=== PATIENT | female | born 1960 | race Caucasian/White ===

== ENCOUNTER 2024-02-17 08:38 | Emergency (ER) | payer MEDICARE, MEDICAID, SELFPAY ==
[2024-02-17] VITALS (18 sets, daily range): BP systolic 101–129; BP diastolic 49–90; PULSE 77–94; RESP 15–28; TEMP 37.2–39.1; O2SAT 97
--- NOTE | 2024-02-17 08:30 | RT.EKG_ITS ---
APPROVED REPORT Exam: Resting ECG Reason for Exam: Fever Patient Location: E HR:90 bpm ECG Measurements Heart Rate [address] 134 P 84 QRSd 88 QRS 56 QT 449 T 57 QTc 549 Conclusion Sinus rhythm...normal P axis, V-rate 60- 99 Right atrial enlargement...P>0.25mV 2 lds or<-0.24mV aVR/aVL Borderline ST depression, lateral leads...ST <-0.07mV, I aVL V5 V6 Prolonged QT interval...QTc >500mS
--- NOTE | 2024-02-17 09:31 | W.ED.GENAD ---
Discharge Plan Disposition Patient Disposition: Home Condition: Stable Discharge Details Clinical Impression: Infiltrate of upper lobe of right lung present on imaging study, Calculus, renal, Lesion of right [place] kidney, Splenic lesion, Pneumonia, Hypokalemia Primary Care Provider: Madeline,Local ED Provider: Luiz Michel Home Meds and New Rx's Prescriptions: New doxycycline hyclate 100 mg capsule 100 mg PO BID Qty: 10 0RF amoxicillin-pot clavulanate 875-125 mg tablet 1 tab PO BID Qty: 10 0RF Continued zolpidem 5 mg tablet 5 mg PO DAILY hydrocodone-acetaminophen 7.5-325 mg tablet 1 tab PO DAILY Patient Comments: TAKE ONE TABLET BY MOUTH EVERY 6 HOURS FOR CHRONIC PAIN, MAXIMUM DAILY DOSE = 4 TABLETS methylphenidate HCl 10 mg tablet 10 mg PO DAILY Patient Comments: TAKE ONE TABLET BY MOUTH EVERY DAY FOR NARCOLEPSY , MAXIMUM DAILY DOSE = 10MG Afternoon dose, per patient methylphenidate HCl 20 mg tablet 40 mg PO DAILY Patient Comments: TAKE TWO TABLETS BY MOUTH EVERY DAY FOR 28 DAYS FOR NARCOLEPSY MAXIMUM DAILY DOSE = 2 TABLETS Morning dose, per patient doxycycline hyclate 100 mg tablet 100 mg PO DAILY Patient Comments: TAKE ONE TABLET BY MOUTH DAILY AT 9AM for rosacea levalbuterol tartrate 45 mcg/actuation HFA aerosol inhaler 2 inh INHALATION Q4H PRN Patient Comments: INHALE TWO PUFFS BY MOUTH INTO LUNGS EVERY 4 HOURS NEEDED FOR WHEEZING/SHORTNESS OF BREATH DIRECTED methocarbamol 500 mg tablet 500 mg PO HS Patient Comments: TAKE TWO TABLETS BY MOUTH DAILY AT 9PM AT BEDTIME montelukast 10 mg tablet 10 mg PO DAILY Patient Comments: TAKE ONE TABLET BY MOUTH DAILY AT 9AM for allergies ondansetron HCl 4 mg tablet 4 mg PO .q8prn Patient Comments: TAKE ONE TABLET BY MOUTH EVERY 8 HOURS NEEDED FOR NAUSEA pregabalin 300 mg capsule 300 mg PO BID Patient Comments: TAKE ONE CAPSULE BY MOUTH TWICE DAILY DAILY MAX 2 CAPSULES promethazine 25 mg tablet 25 mg PO .q6n prn Patient Comments: TAKE ONE TABLET BY MOUTH EVERY 6 HOURS NEEDED FOR NAUSEA ropinirole 2 mg tablet 2 mg PO HS Patient Comments: TAKE ONE TABLET BY MOUTH DAILY AT 9PM AT BEDTIME lidocaine HCl [Lidocaine Viscous] 2 % solution 1 applic mucous membrane .q6 prn Patient Comments: MIX 5 MLS LIDOCAINE WITH 5 MLS MYLANTA OR MAALOX, SWISH AND SWALLOW FOR SWALLOWING PAIN EVERY 6 HOURS NEEDED sumatriptan succinate 100 mg tablet 100 mg PO DAILY PRN Patient Comments: TAKE ONE TABLET BY MOUTH DAILY NEEDED FOR MIGRAINE. TAKE AT ONSET OF MIGRAINE. MAY REPEAT IN 2 HOURS IF NEEDED. DAILY MAX 2 TABLETS duloxetine 60 mg capsule,delayed release(DR/EC) 120 mg PO DAILY Patient Comments: TAKE TWO CAPSULES BY MOUTH DAILY AT 9AM For depression, anxiety (DME) OneTouch Ultra Test Strip MISCELLANEOUS Patient Comments: USE TO TEST TWO TIMES A DAY omeprazole 40 mg capsule,delayed release(DR/EC) 40 mg PO DAILY Patient Comments: TAKE ONE CAPSULE BY MOUTH EVERY DAY benzonatate 100 mg capsule 100 mg PO TID Patient Comments: TAKE 1 CAPSULE BY MOUTH THREE TIMES A DAY NEEDED FOR COUGH Spiriva Respimat 2.5 mcg/actuation mist 2 inh INHALATION DAILY Patient Comments: INHALE 2 PUFFS DIRECTED DAILY Held doxycycline hyclate 100 mg capsule 100 mg PO DAILY Hold Instructions: Resume on 02/23/24. Patient Comments: TAKE 1 CAPSULE BY MOUTH EVERY DAY FOR ROSACEA Discharge Instructions Instructions: Hypokalemia (ED), Pneumonia (ED) Additional Instructions: Please take full course of antibiotics as prescribed. Please follow-up with your primary care physician. Be sure to discuss all results with your primary care physician. There are findings on CT scan that require outpatient follow-up. Be sure to discuss these with your doctor. Timely outpatient follow-up is essential. Return to the ER immediately for any worsening or new concerning symptoms. Discharge Data Discharge Date/Time-TO BE ENTERED AT DEPARTURE: 02/17/24 14:11 HPI General Mode of arrival: ambulatory. Date/Time Provider Initiated Documentation: 02/17/24 08:43. Limitations to Documentation: no limitations. Information obtained by: patient and family. HPI Narrative: 63-year-old female smoker presents with chief complaint of illness. Patient notes cough, nausea vomiting and shortness of breath over the past 3 days. She is concerned she has pneumonia. She notes associated fever of 101. Cough is nonproductive. She has associated bilateral ear pain, headache, body aches. No known sick contacts. No tick bites. Related Data Home Medications Medication Instructions Recorded Confirmed amoxicillin 875 mg-potassium 1 tab PO BID #10 tabs 02/17/24 clavulanate 125 mg tablet benzonatate 100 mg capsule 100 mg PO TID 02/17/24 02/17/24 blood sugar diagnostic (OneTouch 02/17/24 02/17/24 Ultra Test strips) doxycycline hyclate 100 mg capsule 100 mg PO BID #10 caps 02/17/24 doxycycline hyclate 100 mg capsule 100 mg PO DAILY 02/17/24 02/17/24 doxycycline hyclate 100 mg tablet 100 mg PO DAILY 02/17/24 02/17/24 duloxetine 60 mg capsule,delayed 120 mg PO DAILY 02/17/24 02/17/24 release hydrocodone 7.5 mg-acetaminophen 1 tab PO DAILY 02/17/24 02/17/24 325 mg tablet levalbuterol tartrate 45 2 inh inhalation Q4H PRN 02/17/24 02/17/24 mcg/actuation aerosol inhaler lidocaine HCl 2 % mucosal solution 1 applic mucous membrane .q6 prn 02/17/24 02/17/24 (Lidocaine Viscous) methocarbamol 500 mg tablet 500 mg PO HS 02/17/24 02/17/24 methylphenidate HCl 10 mg tablet 10 mg PO DAILY 02/17/24 02/17/24 methylphenidate HCl 20 mg tablet 40 mg PO DAILY 02/17/24 02/17/24 montelukast 10 mg tablet 10 mg PO DAILY 02/17/24 02/17/24 omeprazole 40 mg capsule,delayed 40 mg PO DAILY 02/17/24 02/17/24 release ondansetron HCl 4 mg tablet 4 mg PO .q8prn 02/17/24 02/17/24 pregabalin 300 mg capsule 300 mg PO BID 02/17/24 02/17/24 promethazine 25 mg tablet 25 mg PO .q6n prn 02/17/24 02/17/24 ropinirole 2 mg tablet 2 mg PO HS 02/17/24 02/17/24 sumatriptan succinate 100 mg tablet 100 mg PO DAILY PRN 02/17/24 02/17/24 tiotropium bromide 2.5 2 inh inhalation DAILY 02/17/24 02/17/24 mcg/actuation mist for inhalation (Spiriva Respimat) zolpidem 5 mg tablet 5 mg PO DAILY 02/17/24 02/17/24 Previous Rx's Medication Instructions Recorded amoxicillin 875 mg-potassium 1 tab PO BID #10 tabs 02/17/24 clavulanate 125 mg tablet doxycycline hyclate 100 mg capsule 100 mg PO BID #10 caps 02/17/24 Allergies Allergy/AdvReac Type Severity Reaction Status Date / Time ketorolac [From Toradol] Allergy Severe Anaphylaxis Verified 02/17/24 08:43 ibuprofen [From Motrin] Allergy Intermediate Itching Verified 02/17/24 08:43 General Stated Complaint: GenMedical DMITRI: 3 Review of Systems Constitutional Constitutional: Denies fever(s) Cardiovascular Cardiovascular: Reports dyspnea Respiratory Respiratory: Reports cough and Reports dyspnea Exam Const General: cooperative and no acute distress HENMT Ears: TM abnormal (fullness bilateral) Mouth: moist mucous membranes Eyes Conjunctivae: normal conjunctivae Sclera: normal sclerae EOM: EOM intact bilaterally Neck Neck: full ROM, trachea midline and supple Resp Auscultation: clear to auscultation bilaterally, no rales, no rhonchi and no wheezes Cardio Rate: regular rate and not tachycardic Rhythm: regular rhythm GI Palpation: soft, not firm, no guarding, no masses, not rigid and tender (mild diffuse) Skin General skin exam: no rashes or lesions noted Neuro General: patient alert, patient awake, patient oriented x3 and tone normal Extrem General: no edema Psych Appearance: grossly normal Mental Status: mental status grossly normal Course Vital Signs Vital signs: Vital Signs Temperature 39.1 C H 02/17/24 08:38 Pulse 90 02/17/24 08:38 Respiratory Rate 23 02/17/24 08:38 Blood Pressure 124/80 02/17/24 08:38 Pulse Oximetry 97 02/17/24 08:38 Temperature 39.1 C H 02/17/24 08:43 Temperature Source Tympanic 02/17/24 08:43 Pulse 84 02/17/24 09:01 Pulse 86 02/17/24 09:01 Respiratory Rate 26 H 02/17/24 09:01 Blood Pressure 112/51 L 02/17/24 09:01 Blood Pressure Mean 73 02/17/24 09:01 Blood Pressure Position Supine 02/17/24 08:43 Pulse Oximetry 97 02/17/24 08:43 Oxygen Delivery Method Room Air 02/17/24 08:43 Oxygen Flow Rate 0 02/17/24 08:43 Pain Level 10 02/17/24 08:43 Comment Pt states she has a GABRIEL and ear pain; no CP 02/17/24 08:43 Lab/Test Results Lab/Test Results: 02/17/24 08:45 Blood Blood Culture - Pending 02/17/24 08:45 Blood Blood Culture - Pending Medical Decision Making 958??63-year-old female smoker here with cough, nausea vomiting, myalgias, headache, bilateral ear pain, and fever over the past 3 days. Patient is hemodynamically stable. Patient saturating well in no respiratory distress. Patient is febrile. Patient given acetaminophen IV by EMS. Concern for pneumonia versus viral infection versus other. Will send COVID, flu and RSV testing. Plan obtain chest x-ray to assess for pneumonia. Screening EKG was reviewed and interpreted by me: Sinus rhythm 90 bpm, right atrial enlargement, subtle ST depression noted laterally V4 to V6. Prolonged QTc 549. -- Chest x-ray was interpreted by radiology: Concerning right upper lobe infiltrate. CT scan recommended to rule out malignancy. No obvious pleural effusions. 1335 --CT of the chest abdomen pelvis interpreted by radiology: There is infiltrate in the right upper lobe extending from the hilum out to the pleural surface corresponding to what is seen on chest x-ray earlier today. Suspicious for malignancy. Another smaller area of infiltrate is seen more anteriorly in the right upper lobe (series 4/image 17), and there is a right lower lobe nodule measuring 6-7 mm (series 4/image 27). No pleural effusion. The opposite-left lung is clear with the exception of some mild pleural based infiltrate adjacent to a bulla in the anterior segment of the left upper lobe (series 4/image 20). There are no pleural effusions on either side. 1. There is malignant appearing infiltrate in the right upper lobe extending from the hilum out to the pleural surface, this correspond to the finding on the chest x-ray earlier today. Apparently this has been documented at outside institution. Right lung findings as described above. No significant left lung findings. No pleural effusions. 2. In the superior pole the right kidney there is a 1.5 cm finding which is too dense to be a simple cyst. Recommend follow-up ultrasound of this finding in the most superior aspect of the right kidney 3. There is subcapsular lesion in the posterior aspect of the spleen measuring 2 x 1.3 cm appears statistically this is most probably a cyst or hemangioma. Less likely neoplastic. There are no lesions in the liver nor elsewhere in the abdomen and pelvis. 4. Other findings as above. Labs reviewed: No leukocytosis. Hypokalemia was noted with potassium 2.8. Patient received potassium 20 mill equivalents IV and 20 mill equivalents orally. COVID, flu and RSV negative. Patient reassessed and notes she is feeling better. Plan to treat for potential pneumonia with Augmentin and doxycycline. Patient will require close outpatient follow-up with pulmonology next week. All results were discussed with the patient. Usual customary discharge instructions were reviewed. Patient is new to the area and we did discuss need to follow-up with PCP. She is in the process of transferring records from her prior PCP in the [place] area to new PCP here. I recommended that if she is not able to follow-up with her new PCP in a timely fashion due to transfer of care delays, she should follow-up in [place] with her previous PCP. Patient verbalized understanding of this and the importance of timely follow-up. Lab Data Lab results reviewed: Yes I reviewed the patient's lab results. Labs: 02/17/24 09:34 Blood Blood Culture - Pending 02/17/24 09:34 Blood Blood Culture - Pending Laboratory Tests Range/Units 02/17/24 02/17/24 09:04 09:34 WBC (4.4-10.8) 10^3/uL 7.45 RBC (3.93-5.22) 10^6/uL 3.89 L Hgb (11.2-15.7) g/dL 12.5 Hct (36.0-46.0) % 36.1 MCV (80-95) fL 93 MCH (27.0-33.0) pg 32.1 MCHC (32.0-36.0) % 34.6 RDW (11.7-14.6) % 12.9 Plt Count (130-400) 10^3/uL 284 MPV (8.0-11.0) fL 9.2 Immature Gran % % 0.0 Neutrophils % % 74.0 Band Neutrophils % % 5 Lymphocytes % % 8.0 Atypical Lymphs % % 0.0 Monocytes % % 11.0 Eosinophils % % 0.0 Basophils % % 0.0 Metamyelocytes % 2 Nucleated RBC % (0.0-0.3) % 0.0 Absolute Neutrophils (1.2-6.7) 10^3/uL 5.89 Absolute Lymphocytes (1.2-3.4) 10^3/uL 0.60 L Absolute Monocytes (0.1-0.8) 10^3/uL 0.82 H Absolute Eosinophils (0.0-0.7) 10^3/uL 0.00 Absolute Basophils (0.0-0.2) 10^3/uL 0.00 RBC Morphology Normal VBG Lactate (0.6-1.4) mmol/L 0.9 Sodium (136-145) mmol/L 142 Potassium (3.5-5.1) mmol/L 2.8 L* Chloride (98-107) mmol/L 107 Carbon Dioxide (21.0-32.0) mmol/L 24.0 Anion Gap (3-11) mmol/L 11.0 BUN (7-18) mg/dL 8 Creatinine (0.55-1.02) mg/dL 0.7 Est GFR (CKD-EPI 2020) (mL/min/1.73m2) 95.92 Glucose (74-106) mg/dL 160 H Calcium (8.5-10.1) mg/dL 8.5 Magnesium (1.8-2.4) mg/dL 2.0 Total Bilirubin (0.2-1.0) mg/dL 0.4 AST (15-37) U/L 9 L ALT (14-59) U/L 15 Alkaline Phosphatase (46-116) U/L 78 Total Protein (6.4-8.2) g/dL 7.3 Albumin (3.4-5.0) g/dL 3.2 L Procalcitonin ng/mL < 0.1 COVID-19 Source Nasopharynx SARS-CoV-2 (PCR) (Negative) Negative Influenza Type A (PCR) (Negative) Negative Influenza Type B (PCR) (Negative) Negative RSV (PCR) (Negative) Negative Quality:SDOH Health Related Social Needs: No Data to Display PFSH All Active Problems (Updated 02/17/24 @ 13:48 by Luiz Michel MD) Hypokalemia (Acute) Pneumonia (Acute) Splenic lesion (Acute) Lesion of right [place] kidney (Acute) Calculus, renal (Chronic) Infiltrate of upper lobe of right lung present on imaging study (Acute) Social History Smoking risk assessment performed?: No
[2024-02-17 09:42] LABS: Lactate 0.9 mmol/L (0.6-1.4)
[2024-02-17 09:44] LABS: HCT 36.1 % (36.0-46.0); HGB 12.5 g/dL (11.2-15.7); MCH 32.1 pg (27.0-33.0); MCHC 34.6 % (32.0-36.0); MCV 93 fL (80-95); MPV 9.2 fL (8.0-11.0); Platelet Count 284 10^3/uL (130-400); RBC 3.89 10^6/uL (3.93-5.22); RDW 12.9 % (11.7-14.6); RDW-SD 43.8 fL; WBC 7.45 10^3/uL (4.4-10.8)
[2024-02-17 09:55] LABS: COVID-19 PCR Negative (Negative); Influenza A PCR Negative (Negative); Influenza B PCR Negative (Negative); RSV PCR Negative (Negative)
[2024-02-17 09:58] LABS: ALT 15 U/L (14-59); AST 9 U/L (15-37); Albumin 3.2 g/dL (3.4-5.0); Alkaline Phosphatase 78 U/L (46-116); BUN 8 mg/dL (7-18); Bilirubin, Total 0.4 mg/dL (0.2-1.0); CREATININE 0.7 mg/dL (0.55-1.02); Calcium 8.5 mg/dL (8.5-10.1); Chloride 107 mmol/L (98-107); Estimated GFR 95.92 (mL/min/1.73m2); Glucose 160 mg/dL (74-106); Sodium 142 mmol/L (136-145); Total Protein 7.3 g/dL (6.4-8.2)
[2024-02-17 10:01] LABS: Absolute Monocyte Count 0.82 10^3/uL (0.1-0.8); Absolute Neutrophil Count 5.89 10^3/uL (1.2-6.7); Bands % 5 %; Potassium 2.8 mmol/L (3.5-5.1)
[2024-02-17 10:02] LABS: Diff Comment Manual Differential; Metamyelocytes % 2; RBC Morphology Normal
--- NOTE | 2024-02-17 10:04 | DI.RAD_ITS ---
Exam(s) XR CHEST 2V PA LATERAL EXAM: XR CHEST 2V PA LATERAL CLINICAL HISTORY: cough. TECHNIQUE: 2D digital imaging was performed. COMPARISON: No exams were available for comparison FINDINGS: 2 views: Heart size is normal. The mediastinum is not widened. Left lung is clear. However, there is a concerning infiltrate extending from the right hilum out to the right upper lobe pleural surface., not associated with obvious rib destruction. No pleural effus ion. IMPRESSION: Concerning right upper lobe infiltrate. CT scan recommended to rule out malignancy. No obvious pleu ral effusions. DATA REPOSITORY: RADIATION DOSE DELIVERED:
[2024-02-17 10:05] LABS: Source Nasopharynx
[2024-02-17] MEDS: Potassium Chloride 20 MEQ TABCR PO (10:21)
[2024-02-17] MEDS: POTASSIUM CHLORIDE 20 MEQ/100 ML BAG 50 MEQ IVINF (10:24)
[2024-02-17 10:35] LABS: Procalcitonin < 0.1 ng/mL
[2024-02-17] MEDS: Omnipaque 350 MG/ML 500 ML BTL-Imaging package 100 ML IJ (13:08)
[2024-02-17] MEDS: Normal Saline - Diluent 50 ML VIAL IJ (13:10)
--- NOTE | 2024-02-17 13:15 | DI.CT_ITS ---
Exam(s) CT CHEST/ABD/PEL W EXAM: CT CHEST/ABD/PEL W CLINICAL HISTORY: cough, fever, n/v, rul lesion on cxr. TECHNIQUE: Imaging Protocol: Axial computed tomography images with coronal and sagittal reformatted images were created and reviewed CONTRAST MATERIAL: Intravenous: Omnipaque 350 Contrast volume:100 ml Oral: None COMPARISON: CR XR CHEST 2V PA LATERAL from 02/17/2024 FINDINGS: CHEST: LUNGS: There is infiltrate in the right upper lobe extending from the hilum out to the pleural surfac e corresponding to what is seen on chest x-ray earlier today. Suspicious for malignancy. Another sm aller area of infiltrate is seen more anteriorly in the right upper lobe (series 4/image 17), and the re is a right lower lobe nodule measuring 6-7 mm (series 4/image 27). No pleural effusion. The oppo site-left lung is clear with the exception of some mild pleural based infiltrate adjacent to a bulla in the anterior segment of the left upper lobe (series 4/image 20). There are no pleural effusions o n either side. MEDIASTINUM: The right sided infiltrate is contiguous with the an right hilum difficult to distinguis h lymph nodes from mass. The opposite-left hilum appears unremarkable. There is no obvious subcarin al adenopathy. There is no obvious paratracheal adenopathy nor adenopathy in the anterior mediastina l fat. Visualized thyroid unremarkable.Moderate size retrocardiac hiatal hernia noted. CARDIAC: Heart size is normal. There is no pericardial effusion.Caliber of the thoracic aorta is wit hin normal limits. OSSEOUS: No significant osseous lesions.No fractures. Anterior fusion plate in the lower cervical sp ine noted. Sternum unremarkable. ABDOMEN: There is no ascites. Moderate size retrocardiac hiatal hernia noted. There is evidence of previous surgery in this region. LIVER: There are no focal hepatic lesions nor dilatation of intrahepatic ducts. GALLBLADDER/BILIARY: No obvious gallbladder pathology. CBD is not dilated. PANCREAS: No evidence of pancreatic mass nor dilatation of the pancreatic duct. SPLEEN: There is a subcapsular hypodense lesion in the posterior aspect of the spleen which measures 2.0 x 1.3 cm. Unlikely metastatic lesion most probably represents cyst or hemangioma. Splenic and p ortal veins are patent. ADRENALS: There are no significant adrenal masses. KIDNEYS: There are 2 benign cysts in the left kidney measuring 1.2 and 1.5 cm. These do not require further workup. In the opposite-right kidney there is a finding in the superior pole measuring 1.5 c m which is too dense to be a simple cyst.. Small nonobstructive calculus noted. ABDOMINAL AORTA: Abdominal aorta is not enlarged. LYMPH NODES: There is no retroperitoneal nor paraaortic adenopathy. ABDOMINAL WALL: No evidence of significant anterior abdominal wall nor inguinal hernia. GI: There is no evidence of bowel obstruction.Cecum is sitting on top the urinary bladder. Difficult located appendix but there is no obvious acute appendicitis. PELVIS: LYMPH NODES: There is no intrapelvic nor inguinal adenopathy. GI: No evidence of appendicitis.There are sigmoid diverticuli but no evidence of acute diverticulitis . No free fluid in the pelvis URINARY BLADDER: No calculi nor masses evident REPRODUCTIVE: Uterus surgically absent. No abnormal adnexal masses nor free fluid in the pelvis. OSSEOUS: No significant osseous lesions. No fractures. Mild disc space narrowing at L3-4 level noted. No listhesis. IMPRESSION: 1. There is malignant appearing infiltrate in the right upper lobe extending from the hilum out to th e pleural surface, this correspond to the finding on the chest x-ray earlier today. Apparently this has been documented at outside institution. Right lung findings as described above. No significant left lung findings. No pleural effusions. 2. In the superior pole the right kidney there is a 1.5 cm finding which is too dense to be a simple cyst. Recommend follow-up ultrasound of this finding in the most superior aspect of the right kidney 3. There is subcapsular lesion in the posterior aspect of the spleen measuring 2 x 1.3 cm appears sta tistically this is most probably a cyst or hemangioma. Less likely neoplastic. There are no lesions in the liver nor elsewhere in the abdomen and pelvis. 4. Other findings as above. RADIATION DOSE DELIVERED: 1,562.74mGy.cm Total DLP DATA REPOSITORY: All CT scans at this facility are submitted to the National Radiology Data Registry (NRDR) Dose Index Registry (DIR) with the [employer] ([employer]). RADIATION OPTIMIZATION: All CT scans at this facility use at least one of these dose optimization te chniques: automated exposure control; mA and/or kV adjustment per patient size (includes targeted exa ms where dose is matched to clinical indication); or iterative reconstruction.
[2024-02-17] MEDS: Doxycycline Hyclate 100 MG CAP PO (14:05)
[2024-02-17] MEDS: Amoxicillin 875/Clav. 125 TAB PO (14:05)
== END 2024-02-17 14:11 | disposition home or self-care (01) ==
PROVIDERS: Emergency Provider Student in an Organized Health Care Education/Training Program
DX: R91.8 Other nonspecific abnormal finding of lung field (principal); N20.0 Calculus of kidney; N28.9 Disorder of kidney and ureter, unspecified; D73.89 Other diseases of spleen; J18.9 Pneumonia, unspecified organism; E87.6 Hypokalemia
CPT/HCPCS: 36415; 74177; 80053; 84145; 87040; 87637; 93005; 99285; 71046; 71260; 83605; 83735; 85025; 93010; 99284; J3480

== ENCOUNTER 2024-02-23 14:54 | Emergency (ER) | payer MEDICARE, MEDICAID, SELFPAY ==
[2024-02-23 14:58] VITALS: BP 131/94; PULSE 96; RESP 22; TEMP 37.1; O2SAT 96
[2024-02-23 15:02] VITALS: BP 131/94; PULSE 96; RESP 22; TEMP 37.1; O2SAT 96
--- NOTE | 2024-02-23 15:15 | RT.EKG_ITS ---
APPROVED REPORT Exam: Resting ECG Reason for Exam: SOB Patient Location: E HR:91 bpm ECG Measurements Heart Rate 91 AXIS MS 130 P 81 QRSd 87 QRS 70 QT 354 T 1 QTc 436 Conclusion Sinus rhythm...normal P axis, V-rate 60- 99 Right atrial enlargement...P>0.25mV 2 lds or<-0.24mV aVR/aVL Probable LVH with secondary repol abnrm...multiple LVH criteria Physician:minimal st depression in V3-6, no stemi or elevation
--- NOTE | 2024-02-23 15:17 | W.ED.GENAD ---
Discharge Plan Disposition Patient Disposition: Home Condition: Stable Discharge Details Clinical Impression: Infiltrate of upper lobe of right lung present on imaging study Primary Care Provider: Unknown,Unknown ED Provider: Donato Laguna Home Meds and New Rx's Prescriptions: New benzonatate 150 mg capsule 150 mg PO TID PRN (Reason: cough) Qty: 30 0RF azithromycin 250 mg tablet 250 mg PO DAILY 4 Days Qty: 4 0RF Rx Instructions: start on day 2 of therapy prednisone 20 mg tablet 40 mg PO DAILY 6 Days Qty: 12 0RF Continued zolpidem 5 mg tablet 5 mg PO DAILY hydrocodone-acetaminophen 7.5-325 mg tablet 1 tab PO DAILY Patient Comments: TAKE ONE TABLET BY MOUTH EVERY 6 HOURS FOR CHRONIC PAIN, MAXIMUM DAILY DOSE = 4 TABLETS methylphenidate HCl 10 mg tablet 10 mg PO DAILY Patient Comments: TAKE ONE TABLET BY MOUTH EVERY DAY FOR NARCOLEPSY , MAXIMUM DAILY DOSE = 10MG Afternoon dose, per patient methylphenidate HCl 20 mg tablet 40 mg PO DAILY Patient Comments: TAKE TWO TABLETS BY MOUTH EVERY DAY FOR 28 DAYS FOR NARCOLEPSY MAXIMUM DAILY DOSE = 2 TABLETS Morning dose, per patient levalbuterol tartrate 45 mcg/actuation HFA aerosol inhaler 2 inh INHALATION Q4H PRN Patient Comments: INHALE TWO PUFFS BY MOUTH INTO LUNGS EVERY 4 HOURS NEEDED FOR WHEEZING/SHORTNESS OF BREATH DIRECTED methocarbamol 500 mg tablet 500 mg PO HS Patient Comments: TAKE TWO TABLETS BY MOUTH DAILY AT 9PM AT BEDTIME montelukast 10 mg tablet 10 mg PO DAILY Patient Comments: TAKE ONE TABLET BY MOUTH DAILY AT 9AM for allergies ondansetron HCl 4 mg tablet 4 mg PO .q8prn Patient Comments: TAKE ONE TABLET BY MOUTH EVERY 8 HOURS NEEDED FOR NAUSEA pregabalin 300 mg capsule 300 mg PO BID Patient Comments: TAKE ONE CAPSULE BY MOUTH TWICE DAILY DAILY MAX 2 CAPSULES promethazine 25 mg tablet 25 mg PO .q6n prn Patient Comments: TAKE ONE TABLET BY MOUTH EVERY 6 HOURS NEEDED FOR NAUSEA ropinirole 2 mg tablet 2 mg PO HS Patient Comments: TAKE ONE TABLET BY MOUTH DAILY AT 9PM AT BEDTIME lidocaine HCl [Lidocaine Viscous] 2 % solution 1 applic mucous membrane .q6 prn Patient Comments: MIX 5 MLS LIDOCAINE WITH 5 MLS MYLANTA OR MAALOX, SWISH AND SWALLOW FOR SWALLOWING PAIN EVERY 6 HOURS NEEDED sumatriptan succinate 100 mg tablet 100 mg PO DAILY PRN Patient Comments: TAKE ONE TABLET BY MOUTH DAILY NEEDED FOR MIGRAINE. TAKE AT ONSET OF MIGRAINE. MAY REPEAT IN 2 HOURS IF NEEDED. DAILY MAX 2 TABLETS duloxetine 60 mg capsule,delayed release(DR/EC) 120 mg PO DAILY Patient Comments: TAKE TWO CAPSULES BY MOUTH DAILY AT 9AM For depression, anxiety (DME) OneTouch Ultra Test Strip MISCELLANEOUS Patient Comments: USE TO TEST TWO TIMES A DAY omeprazole 40 mg capsule,delayed release(DR/EC) 40 mg PO DAILY Patient Comments: TAKE ONE CAPSULE BY MOUTH EVERY DAY benzonatate 100 mg capsule 100 mg PO TID Patient Comments: TAKE 1 CAPSULE BY MOUTH THREE TIMES A DAY NEEDED FOR COUGH Spiriva Respimat 2.5 mcg/actuation mist 2 inh INHALATION DAILY Patient Comments: INHALE 2 PUFFS DIRECTED DAILY doxycycline hyclate 100 mg capsule 100 mg PO DAILY Hold Instructions: Resume on 02/23/24. Patient Comments: TAKE 1 CAPSULE BY MOUTH EVERY DAY FOR ROSACEA Discharge Instructions Instructions: Lung cancer screening, Pneumonitis, COPD Exacerbation, Adult ED Additional Instructions: You were seen in the emergency department for your continued cough and shortness of breath in the setting of being treated for pneumonia due to a infiltrate of your right upper lobe of your lung. You completed doxycycline and Augmentin with no relief. I am going to prescribe you azithromycin for 5 days as well as a course of prednisone and a cough suppressant called Kiel Otero. The opacity is still present in the right lung in the upper lobes and has not changed. The CT scans last week did question whether this was reemergence of a cancerous process. You need to follow-up urgently with pulmonology. If he cannot follow-up with your new primary care in this area please [id number] primary care file an urgent referral. Please return to the emergency department for severe increase in shortness of breath, high fever, weakness, intractable nausea or vomiting, chest pain. Referrals: Care Management [Provider Group] [facility] [Provider Group] HPI General Date/Time Provider Initiated Documentation: 02/23/24 15:06. HPI Narrative: 63 year-old female presents to ED today by POV/ambulating with a chief complaint of shortness of breath, has smoking history, seen last week and diagnosed with a R upper lobe PNA, treated with doxycycline and Augmentin- still feeling bad. Quality described as shortness of breath, can't stop coughing, no radiation to numbness/tingling, high fever, vomiting, black/bloody stools, chest pain, profound weakness, endorses poor appetite. Severity is described as severe. Palliating factors include finished ABX as directed. Provoking factors include nothing specific. 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 Patient not anticoagulated. Related Data Home Medications Medication Instructions Recorded Confirmed benzonatate 100 mg capsule 100 mg PO TID 02/17/24 02/23/24 blood sugar diagnostic (OneTouch 02/17/24 02/17/24 Ultra Test strips) doxycycline hyclate 100 mg capsule 100 mg PO DAILY 02/17/24 02/23/24 duloxetine 60 mg capsule,delayed 120 mg PO DAILY 02/17/24 02/23/24 release hydrocodone 7.5 mg-acetaminophen 1 tab PO DAILY 02/17/24 02/23/24 325 mg tablet levalbuterol tartrate 45 2 inh inhalation Q4H PRN 02/17/24 02/23/24 mcg/actuation aerosol inhaler lidocaine HCl 2 % mucosal solution 1 applic mucous membrane .q6 prn 02/17/24 02/23/24 (Lidocaine Viscous) methocarbamol 500 mg tablet 500 mg PO HS 02/17/24 02/23/24 methylphenidate HCl 10 mg tablet 10 mg PO DAILY 02/17/24 02/23/24 methylphenidate HCl 20 mg tablet 40 mg PO DAILY 02/17/24 02/23/24 montelukast 10 mg tablet 10 mg PO DAILY 02/17/24 02/23/24 omeprazole 40 mg capsule,delayed 40 mg PO DAILY 02/17/24 02/23/24 release ondansetron HCl 4 mg tablet 4 mg PO .q8prn 02/17/24 02/23/24 pregabalin 300 mg capsule 300 mg PO BID 02/17/24 02/23/24 promethazine 25 mg tablet 25 mg PO .q6n prn 02/17/24 02/23/24 ropinirole 2 mg tablet 2 mg PO HS 02/17/24 02/23/24 sumatriptan succinate 100 mg tablet 100 mg PO DAILY PRN 02/17/24 02/23/24 tiotropium bromide 2.5 2 inh inhalation DAILY 02/17/24 02/23/24 mcg/actuation mist for inhalation (Spiriva Respimat) zolpidem 5 mg tablet 5 mg PO DAILY 02/17/24 02/23/24 azithromycin 250 mg tablet 250 mg PO DAILY 4 days #4 tabs 02/23/24 benzonatate 150 mg capsule 150 mg PO TID PRN cough #30 caps 02/23/24 prednisone 20 mg tablet 40 mg (2 x 20 mg) PO DAILY 02/23/24 reactive airway disease 6 days #12 tabs Previous Rx's Medication Instructions Recorded azithromycin 250 mg tablet 250 mg PO DAILY 4 days #4 tabs 02/23/24 benzonatate 150 mg capsule 150 mg PO TID PRN cough #30 caps 02/23/24 prednisone 20 mg tablet 40 mg (2 x 20 mg) PO DAILY 02/23/24 reactive airway disease 6 days #12 tabs Allergies Allergy/AdvReac Type Severity Reaction Status Date / Time ketorolac [From Toradol] Allergy Severe Anaphylaxis Verified 02/17/24 08:43 ibuprofen [From Motrin] Allergy Intermediate Itching Verified 02/17/24 08:43 General Stated Complaint: GenMedical DMITRI: 3 Review of Systems All systems reviewed & are unremarkable except as noted in HPI and below Exam Narrative Exam Narrative: GENERAL APPEARANCE: Well-nourished, non-toxic, awake and alert, atraumatic, no acute distress. SKIN: Warm, pink, dry, intact, without rashes/lesions/ulcerations. HEAD: Normocephalic, atraumatic, normal hair distribution for gender/age. EYES: Pupils PERRLA, EOMs intact without nystagmus, normal conjunctiva, no exudates on lids/lashes. ENT: Nares patent, no circumoral cyanosis, no facial swelling NECK: Supple, trachea midline, painless cervical ROM. LUNGS/CHEST: Lungs- rhonchi & expiratory wheezes, mildly labored respirations, normal A/P diameter, symmetrical expansion, no chest wall deformity HEART (CV/PV): Regular rate and rhythm without murmur, no peripheral edema, no JVD. ABDOMEN: Soft, non-distended, no guarding, no tenderness. MSK: Normal ROM, no swelling/deformity to bilateral UEs or LEs, moving all extremities without weakness, no cyanosis, spine midline without tenderness, normal curvature. NEURO: Mental Status AAOx4 - alert to person, place, time, events No facial droop, no forehead involvement. Motor: No focal weakness - strength 5/5 in bilateral UEs and LEs, proximal and distal, symmetric. Sensory: sensation intact to light touch globally. Gait normal: patient ambulated without ataxia into ED room. PSYCH: euthymic, cooperative, pleasant, appropriate speech Course Vital Signs Vital signs: Vital Signs Temperature 37.1 C 02/23/24 14:58 Pulse 96 H 02/23/24 14:58 Respiratory Rate 22 02/23/24 14:58 Blood Pressure 131/94 H 02/23/24 14:58 Pulse Oximetry 96 02/23/24 14:58 Temperature 37.1 C 02/23/24 15:02 Temperature Source Oral 02/23/24 15:02 Pulse 96 H 02/23/24 15:02 Respiratory Rate 22 02/23/24 15:02 Blood Pressure 131/94 H 02/23/24 15:02 Pulse Oximetry 96 02/23/24 15:02 Medical Decision Making This dictation utilizes [id number] dictation software and may contain unedited grammatical errors. 63 y/o F presents to ED today with a chief complaint of persistent shortness of breath, seen last week and diagnosed with PNA- treated with doxycycline and Augmentin. Patient endorses poor appetite, persistent cough, shortness of breath, denies high fevers, denies chest pain, denies focal neurological symptoms. Patients' medical history: PNA, splenic lesion, lesion of R [place] kidney, renal calculus, hypokalemia- history of asthma, emphysema, in remission from lung CA. Family and social history: [ ]. Pertinent exam findings / vital signs include rhonchorous and expiratory wheezes, toxic vitals- HR>90, RR 22, benign abdomen, afebrile, neuro intact. Differential / pathologies of concern include PNA, sepsis, PE, ACS, COPD exacerbation. Diagnostic studies of: -CBC, CMP, lactate, procalcitonin CBC, CMP, lactate, procalcitonin, BNP, troponin, D-dimer, magnesium, urinalysis, blood cultures, COVID/flu/RSV PCR, EKG. -CBC no leukocytosis, no anemia, elevated platelet count no -D-dimer negative -VBG unremarkable -Lactate negative, procalcitonin negative-do not suspect sepsis -Significantly improved potassium level from prior -BNP negative, troponin negative with reliable onset -Magnesium within normal limits -COVID/flu/RSV PCR negative -Blood cultures pending -UA sample not given -EKG shows sinus rhythm with P waves followed by narrow complex QRS with normal axis, right atrial enlargement, some diffuse ST depressions in the lateral leads, no STEMI or other ischemic changes, normal QT QTc, good R wave progression -XR chest shows stable opacity, consider malignant pathology Interventions of: -9mL DuoNeb, 125mg IVP methylprednisolone. ED Course/Assessment/Plan: 63-year-old female presents after being diagnosed with a right upper lobe infiltrate and pneumonia last week, completed course of doxycycline and Augmentin without change in her respiratory status, endorses significant COPD emphysema history as well as asthma. She is in no respiratory distress and no hypoxia here in the emergency department does have a persistent cough and is out of her Tessalon Perles. Her laboratory workup is negative for any septic pathology, D-dimer is negative I do not suspect any PE, her VBG is unremarkable and her cardiac workup is negative. I did discuss possibility of treating with empiric azithromycin for walking pneumonia for atypical pneumonia and provided steroid loading here in the department and outpatient prednisone burst as well as Tessalon Perles for symptomatic relief of persistent cough. I counseled the patient that they need to follow-up and I was somewhat concerned if this treatment did not change their right upper lobe opacity that this could be a reemergence of lung cancer. I arranged for them to see care management to aid in establishing primary care and getting a pulmonology referral done in the short-term, strict return criteria for any worsening respiratory status, chest pain, near fainting, fevers, intractable nausea or vomiting. Findings not consistent with sepsis, PE, hypoxic respiratory failure, acute coronary syndrome. Disposition of infiltrate of upper lobe of right lung present on imaging study. Patient verbalized understanding of the plan and return to ED criteria and engaged in shared decision making. Medical Records Medical records reviewed: Yes I reviewed the patient's medical records. Imaging Data Radiologic Study: Attestation: I personally reviewed and interpreted this imaging study as follows: Imaging: X-Ray Radiologist's impression: EXAM: XR CHEST 2V PA LATERAL CLINICAL HISTORY: cough, SOB TECHNIQUE: 2D digital imaging was performed of the chest. Two images were obtained. PA and lateral views were obtained. COMPARISON: CR XR CHEST 2V PA LATERAL from 02/17/[address] CHEST/ABD/PEL W from 02/17/2024 FINDINGS: MEDIASTINUM: Normal. HEART: Normal. PULMONARY VASCULATURE: Normal. LUNGS: The lungs are hyperinflated suggesting underlying COPD. There is a persistent right upper lobe opacity. It appears similar compared to the prior examination given the slight change in positioning. The lungs are otherwise clear. PLEURAL SPACE: No pleural effusion or pneumothorax. BONE:Within normal limits for the patient's age. Anterior cervical disc fusion is seen. OTHER FINDINGS:Normal. IMPRESSION: Stable right upper lobe opacity. CT scan 6 days prior raise a question of neoplastic process. The lungs are otherwise clear. Lab Data Lab results reviewed: Yes I reviewed the patient's lab results. Labs: 02/23/24 15:21 Blood Blood Culture - Pending 02/23/24 15:21 Blood Blood Culture - Pending Laboratory Tests Range/Units 02/23/24 02/23/24 02/23/24 16:04 16:06 16:45 WBC (4.4-10.8) 10^3/uL 8.64 RBC (3.93-5.22) 10^6/uL 4.41 Hgb (11.2-15.7) g/dL 13.9 Hct (36.0-46.0) % 41.0 MCV (80-95) fL 93 MCH (27.0-33.0) pg 31.5 MCHC (32.0-36.0) % 33.9 RDW (11.7-14.6) % 12.9 Plt Count (130-400) 10^3/uL 521 H MPV (8.0-11.0) fL 9.1 Immature Gran % % 0.7 Neutrophils % % 67.2 Lymphocytes % % 19.9 Monocytes % % 6.6 Eosinophils % % 5.3 Basophils % % 0.3 Nucleated RBC % (0.0-0.3) % 0.0 Absolute Neutrophils (1.2-6.7) 10^3/uL 5.80 Absolute Lymphocytes (1.2-3.4) 10^3/uL 1.72 Absolute Monocytes (0.1-0.8) 10^3/uL 0.57 Absolute Eosinophils (0.0-0.7) 10^3/uL 0.46 Absolute Basophils (0.0-0.2) 10^3/uL 0.03 D-Dimer Cancelled 413 VBG pH (7.31-7.41) 7.41 VBG pCO2 (41-51) mmHg 37 L VBG pO2 mmHg 39 VBG HCO3 (23-28) mmol/L 24 VBG Total CO2 (24-29) mmol/L 21 L VBG O2 Saturation % 77 VBG Base Excess (-2-3) mmol/L -1 VBG Lactate (0.6-1.4) mmol/L 1.3 Sodium (136-145) mmol/L 144 Potassium (3.5-5.1) mmol/L 3.6 Chloride (98-107) mmol/L 108 H Carbon Dioxide (21.0-32.0) mmol/L 24.1 Anion Gap (3-11) mmol/L 11.9 H BUN (7-18) mg/dL 16 Creatinine (0.55-1.02) mg/dL 0.7 Est GFR (CKD-EPI 2020) (mL/min/1.73m2) 95.92 Glucose (74-106) mg/dL 126 H Calcium (8.5-10.1) mg/dL 9.0 Magnesium (1.8-2.4) mg/dL 2.1 Total Bilirubin (0.2-1.0) mg/dL 0.7 AST (15-37) U/L 14 L ALT (14-59) U/L 17 Alkaline Phosphatase (46-116) U/L 88 Troponin I (< or =60) ng/L < 50 NT-Pro-B Natriuret Pep (<300) pg/mL 82 Total Protein (6.4-8.2) g/dL 7.5 Albumin (3.4-5.0) g/dL 3.3 L Procalcitonin ng/mL < 0.1 COVID-19 Source Nasopharynx SARS-CoV-2 (PCR) (Negative) Negative Influenza Type A (PCR) (Negative) Negative Influenza Type B (PCR) (Negative) Negative RSV (PCR) (Negative) Negative Quality:SDOH Health Related Social Needs: No Data to Display PFSH All Active Problems (Updated 02/23/24 @ 18:33 by HIRAM Cordero) Hypokalemia (Acute) Pneumonia (Acute) Splenic lesion (Acute) Lesion of right [place] kidney (Acute) Calculus, renal (Chronic) Infiltrate of upper lobe of right lung present on imaging study (Acute) Social History Smoking/Tobacco Use Status: Current, status unknown Smoking risk assessment performed?: Yes Drug use: Never Substance use type: does not use Do you feel safe at home: Yes Do you feel safe in your relationship?: Yes
[2024-02-23 16:15] LABS: BE (Venous) -1 mmol/L (-2-3); HCO3 (Venous) 24 mmol/L (23-28); O2 Sat (Venous) 77 %; TCO2 (Venous) 21 mmol/L (24-29); pCO2 (Venous) 37 mmHg (41-51); pH (Venous) 7.41 (7.31-7.41); pO2 (Venous) 39 mmHg
[2024-02-23 16:17] LABS: Abs Immature Grans 0.06 10^3/uL (0.0-0.06); Absolute Basophil Count 0.03 10^3/uL (0.0-0.2); Absolute Eosinophil Count 0.46 10^3/uL (0.0-0.7); Absolute Lymphocyte Count 1.72 10^3/uL (1.2-3.4); Absolute Monocyte Count 0.57 10^3/uL (0.1-0.8); Basophils % 0.3 %; Eosinophils % 5.3 %; HGB 13.9 g/dL (11.2-15.7); Immature Grans % 0.7 %; Lactate 1.3 mmol/L (0.6-1.4); Lymphocytes % 19.9 %; MCH 31.5 pg (27.0-33.0); MCHC 33.9 % (32.0-36.0); MCV 93 fL (80-95); MPV 9.1 fL (8.0-11.0); Monocytes % 6.6 %; Neutrophils % 67.2 %; Platelet Count 521 10^3/uL (130-400); RBC 4.41 10^6/uL (3.93-5.22); RDW 12.9 % (11.7-14.6); RDW-SD 43.9 fL; WBC 8.64 10^3/uL (4.4-10.8)
[2024-02-23] MEDS: Albuterol/Ipratropium 3 ML UPD VIAL 9 ML UPD (16:26)
[2024-02-23] MEDS: MAGNESIUM SULFATE 1 GM/100 ML BAG IVINF (16:26)
[2024-02-23] MEDS: methylPREDNISolone SUCC 125 MG VIAL IVP (16:27)
[2024-02-23] MEDS: Normal Saline 1,000 ML 1000 ML IV (16:27)
[2024-02-23 16:34] LABS: ALT 17 U/L (14-59); AST 14 U/L (15-37); Albumin 3.3 g/dL (3.4-5.0); Alkaline Phosphatase 88 U/L (46-116); Anion Gap 11.9 mmol/L (3-11); BUN 16 mg/dL (7-18); Bilirubin, Total 0.7 mg/dL (0.2-1.0); CO2 24.1 mmol/L (21.0-32.0); CREATININE 0.7 mg/dL (0.55-1.02); Chloride 108 mmol/L (98-107); Estimated GFR 95.92 (mL/min/1.73m2); Glucose 126 mg/dL (74-106); Potassium 3.6 mmol/L (3.5-5.1); Sodium 144 mmol/L (136-145); Total Protein 7.5 g/dL (6.4-8.2)
[2024-02-23 16:39] VITALS: PULSE 86; RESP 23; O2SAT 98
[2024-02-23 16:45] LABS: Magnesium 2.1 mg/dL (1.8-2.4); NT-proBNP 82 pg/mL (<300); Troponin I < 50 ng/L (< or =60)
[2024-02-23 16:50] LABS: Procalcitonin < 0.1 ng/mL
[2024-02-23 17:25] LABS: D-Dimer 413 ng/mlFEU (<500)
[2024-02-23 17:27] LABS: COVID-19 PCR Negative (Negative); Influenza A PCR Negative (Negative); Influenza B PCR Negative (Negative); RSV PCR Negative (Negative)
[2024-02-23 17:28] LABS: Source Nasopharynx
--- NOTE | 2024-02-23 17:30 | DI.RAD_ITS ---
Exam(s) XR CHEST 2V PA LATERAL EXAM: XR CHEST 2V PA LATERAL CLINICAL HISTORY: cough, SOB TECHNIQUE: 2D digital imaging was performed of the chest. Two images were obtained. PA and lateral views were obtained. COMPARISON: CR XR CHEST 2V PA LATERAL from 02/17/[address] CHEST/ABD/PEL W from 02/17/2024 FINDINGS: MEDIASTINUM: Normal. HEART: Normal. PULMONARY VASCULATURE: Normal. LUNGS: The lungs are hyperinflated suggesting underlying COPD. There is a persistent right upper lob e opacity. It appears similar compared to the prior examination given the slight change in positioni ng. The lungs are otherwise clear. PLEURAL SPACE: No pleural effusion or pneumothorax. BONE:Within normal limits for the patient's age. Anterior cervical disc fusion is seen. OTHER FINDINGS:Normal. IMPRESSION: Stable right upper lobe opacity. CT scan 6 days prior raise a question of neoplastic process. The l ungs are otherwise clear. DATA REPOSITORY: RADIATION DOSE DELIVERED:
[2024-02-23 18:45] VITALS: RESP 20
[2024-02-23 18:56] VITALS: BP 108/82; PULSE 89; RESP 18; O2SAT 97
[2024-02-23 18:59] LABS: Bilirubin Negative (Negative); Blood Negative (Negative); Clarity Clear (Clear); Glucose Negative (Negative); Ketones Negative (Negative); Leukocyte Esterase Negative (Negative); Nitrite Negative (Negative); Specific Gravity 1.025 (1.005-1.025); Urobilinogen 0.2 mg/dL (Up to 0.2); pH 6.5 (5-8)
[2024-02-23] MEDS: Azithromycin 250 MG TAB 500 MG PO (19:03)
[2024-02-23] MEDS: Benzonatate 100 MG CAP PO (19:04)
[2024-02-23 19:11] VITALS: BP 108/82; PULSE 89; RESP 18; TEMP 37.1; O2SAT 97
--- NOTE | 2024-02-24 04:08 | NUR.NOTE ---
Pt placed on care management referral list to establish primary care and to see pulmonary as soon as possible per HIRAM Laguna
--- NOTE | 2024-02-24 10:34 | NUR.NOTE ---
Nursing Note: [facility] called about the benzonatate order. They do not have 150 mg available, asked to change to either 100 mg or [address] Cosby, the order was change to 100 mg.
== END 2024-02-23 19:11 | disposition home or self-care (01) ==
PROVIDERS: Student in an Organized Health Care Education/Training Program; Emergency Provider Physician Assistant
DX: R91.8 Other nonspecific abnormal finding of lung field (principal); J44.9 Chronic obstructive pulmonary disease, unspecified; F17.200 Nicotine dependence, unspecified, uncomplicated; Z85.118 Personal history of other malignant neoplasm of bronchus and lung
CPT/HCPCS: 80053; 82805; 84145; 87040; 87637; 93005; 94640; 96361; 96365; 96375; 99285; 71046; 81003; 83605; 83735; 83880; 84484; 85025; 85379; 93010; J2919; J3475; J7620

== ENCOUNTER → 2024-03-20 13:36 | Outpatient (BNVA) | payer MEDICARE, MEDICAID, SELFPAY | PROVIDERS: Visit Provider Physician Assistant Surgical | DX: J44.9 Chronic obstructive pulmonary disease, unspecified (principal); F17.210 Nicotine dependence, cigarettes, uncomplicated; Z85.118 Personal history of other malignant neoplasm of bronchus and lung | CPT/HCPCS: 99215 ==

== ENCOUNTER 2024-04-05 17:15 | Emergency (ER) | payer MEDICARE, MEDICAID, SELFPAY ==
[2024-04-05 17:17] VITALS: BP 110/86; PULSE 94; TEMP 36.5; O2SAT 98
--- NOTE | 2024-04-05 17:30 | DI.RAD_ITS ---
Exam(s) XR ABD FLAT UPRIGHT PA CHEST EXAM: XR ABD FLAT UPRIGHT PA CHEST CLINICAL HISTORY: abdominal pain, constipation. TECHNIQUE: 2D digital imaging was performed. COMPARISON: CR XR CHEST 2V PA LATERAL from 02/17/[address] CHEST/ABD/PEL W from 02/17/2024 CR XR CHEST 2V PA LATERAL from 02/23/2024 FINDINGS: 3 views There bright chest x-ray reveals the concerning infiltrate/probable neoplasm in the right upper lobe, previously documented. Increased density in the right hilum is consistent with adenopathy is seen o n the CT scan of 02/17/2024. No other focal findings in the opposite-left lung there are no pleural effusions. Heart size remains normal. Fusion plate in the cervical spine is noted. Supine and upright views of the abdomen reveal no evidence of bowel obstruction or free intraperitone al air. There are surgical clips again noted in the central and left side of the epigastric region. No obvious masses nor bowel displacement. Symmetrical calcification is noted in soft tissues latera l to both sides the pelvis within tensor fascia carolann.. No fractures nor osseous lesions in the bones of the abdomen-pelvis. There are few air-fluid levels noted within what appears to be the ascending -right colon with the cecum being low lying and sitting on top the urinary bladder, seen on recent CT scan. There does not appear to be an obvious bowel obstruction. IMPRESSION: Nonspecific findings in the abdomen-pelvis as described above. No evidence of true bowel obstruction or free intraperitoneal air. Concerning infiltrate-probable neoplasm right upper lobe extending from hilum to the pleural surface, recently documented on CT scan and other imaging studies. DATA REPOSITORY: RADIATION DOSE DELIVERED:
--- NOTE | 2024-04-05 17:34 | ED.GENADUL_ITS ---
Discharge Plan Disposition Patient Disposition: Home Condition: Stable Discharge Details Clinical Impression: Abdominal pain of unknown cause Primary Care Provider: Unknown,Unknown ED Provider: Donato Laguna Home Meds and New Rx's Prescriptions: Continued Incruse Ellipta 62.5 mcg/actuation blister with device 1 inh inhalation DAILY Qty: 30 12RF benzonatate 100 mg capsule 100 mg PO TID Qty: 90 6RF fluticasone propion-salmeterol [Advair HFA] 115-21 mcg/actuation HFA aerosol inhaler 2 puff inhalation BID Qty: 12 12RF Rx Instructions: administer with spacer prednisone 20 mg tablet 40 mg PO DAILY Qty: 10 0RF Rx Instructions: Take 2 tablets once a day for 5 days. zolpidem 5 mg tablet 5 mg PO DAILY hydrocodone-acetaminophen 7.5-325 mg tablet 1 tab PO DAILY Patient Comments: TAKE ONE TABLET BY MOUTH EVERY 6 HOURS FOR CHRONIC PAIN, MAXIMUM DAILY DOSE = 4 TABLETS methylphenidate HCl 10 mg tablet 10 mg PO DAILY Patient Comments: TAKE ONE TABLET BY MOUTH EVERY DAY FOR NARCOLEPSY , MAXIMUM DAILY DOSE = 10MG Afternoon dose, per patient methylphenidate HCl 20 mg tablet 40 mg PO DAILY Patient Comments: TAKE TWO TABLETS BY MOUTH EVERY DAY FOR 28 DAYS FOR NARCOLEPSY MAXIMUM DAILY DOSE = 2 TABLETS Morning dose, per patient levalbuterol tartrate 45 mcg/actuation HFA aerosol inhaler 2 inh INHALATION Q4H PRN Patient Comments: INHALE TWO PUFFS BY MOUTH INTO LUNGS EVERY 4 HOURS NEEDED FOR WHEEZING/SHORTNESS OF BREATH DIRECTED methocarbamol 500 mg tablet 500 mg PO HS Patient Comments: TAKE TWO TABLETS BY MOUTH DAILY AT 9PM AT BEDTIME montelukast 10 mg tablet 10 mg PO DAILY Patient Comments: TAKE ONE TABLET BY MOUTH DAILY AT 9AM for allergies ondansetron HCl 4 mg tablet 4 mg PO .q8prn Patient Comments: TAKE ONE TABLET BY MOUTH EVERY 8 HOURS NEEDED FOR NAUSEA pregabalin 300 mg capsule 300 mg PO BID Patient Comments: TAKE ONE CAPSULE BY MOUTH TWICE DAILY DAILY MAX 2 CAPSULES promethazine 25 mg tablet 25 mg PO .q6n prn Patient Comments: TAKE ONE TABLET BY MOUTH EVERY 6 HOURS NEEDED FOR NAUSEA ropinirole 2 mg tablet 2 mg PO HS Patient Comments: TAKE ONE TABLET BY MOUTH DAILY AT 9PM AT BEDTIME lidocaine HCl [Lidocaine Viscous] 2 % solution 1 applic mucous membrane .q6 prn Patient Comments: MIX 5 MLS LIDOCAINE WITH 5 MLS MYLANTA OR MAALOX, SWISH AND SWALLOW FOR SWALLOWING PAIN EVERY 6 HOURS NEEDED sumatriptan succinate 100 mg tablet 100 mg PO DAILY PRN Patient Comments: TAKE ONE TABLET BY MOUTH DAILY NEEDED FOR MIGRAINE. TAKE AT ONSET OF MIGRAINE. MAY REPEAT IN 2 HOURS IF NEEDED. DAILY MAX 2 TABLETS duloxetine 60 mg capsule,delayed release(DR/EC) 120 mg PO DAILY Patient Comments: TAKE TWO CAPSULES BY MOUTH DAILY AT 9AM For depression, anxiety (DME) OneTouch Ultra Test Strip MISCELLANEOUS Patient Comments: USE TO TEST TWO TIMES A DAY omeprazole 40 mg capsule,delayed release(DR/EC) 40 mg PO DAILY Patient Comments: TAKE ONE CAPSULE BY MOUTH EVERY DAY Spiriva Respimat 2.5 mcg/actuation mist 2 inh INHALATION DAILY Patient Comments: INHALE 2 PUFFS DIRECTED DAILY doxycycline hyclate 100 mg capsule 100 mg PO DAILY Patient Comments: TAKE 1 CAPSULE BY MOUTH EVERY DAY FOR ROSACEA benzonatate 150 mg capsule 150 mg PO TID PRN (Reason: cough) Qty: 30 0RF Discharge Instructions Instructions: Abdominal Pain, Adult ED Additional Instructions: You were seen in the emergency department for your lower abdominal pain that is intermittent and chronic in nature. Your laboratory workup is reassuring for no acute emergent abdominal pathologies, you have a mild low potassium that needs high potassium diet which I have provided information on. This was barely below normal. Your lipase and liver enzymes are negative indicating no problems with the pancreas or liver, your lactate is normal and I do not suspect sepsis, your urine is free of any infection. You have elevated inflammatory markers and may need a colonoscopy to look for any inflammatory bowel conditions. Please use your at home nausea regimens and take Tylenol and ibuprofen as needed for pain. Please follow-up with outpatient general surgery visit for possible colonoscopy evaluation. Please follow-up with your primary care provider. Please return to the emergency department for severe increase in pain especially with fever, intractable nausea or vomiting, black or bloody diarrhea, near syncope, chest pain or shortness of breath. Referrals: [facility] [Provider Group] Discharge Data Discharge Date/Time-TO BE ENTERED AT DEPARTURE: 04/05/24 21:47 HPI General Date/Time Provider Initiated Documentation: 04/05/24 17:24 . HPI Narrative: 63 year-old female presents to ED today by POV/ambulating with a chief complaint of lower abdominal pain, intermittent episodic for months, but worse over the past severeal days- states no BM for a couple days. Quality described as severe abdominal pain and tenderness, some nausea and vomiting of bile, no radiation to black/bloody stools, fever, cough, shortness of breath, chest pain, dysuria- does endorse lower than usual urine output. Severity is described as severe. Palliating factors include nothing attempted. Provoking factors include nothing specific. Patient not anticoagulated. Related Data Home Medications ?Medication ?Instructions ?Recorded ?Confirmed blood sugar diagnostic (OneTouch 02/17/24 03/20/24 Ultra Test strips) doxycycline hyclate 100 mg capsule 100 mg PO DAILY 02/17/24 04/05/24 duloxetine 60 mg capsule,delayed 120 mg PO DAILY 02/17/24 04/05/24 release hydrocodone 7.5 mg-acetaminophen 1 tab PO DAILY 02/17/24 04/05/24 325 mg tablet levalbuterol tartrate 45 2 inh inhalation Q4H PRN 02/17/24 04/05/24 mcg/actuation aerosol inhaler lidocaine HCl 2 % mucosal solution 1 applic mucous membrane .q6 prn 02/17/24 04/05/24 (Lidocaine Viscous) methocarbamol 500 mg tablet 500 mg PO HS 02/17/24 04/05/24 methylphenidate HCl 10 mg tablet 10 mg PO DAILY 02/17/24 04/05/24 methylphenidate HCl 20 mg tablet 40 mg PO DAILY 02/17/24 04/05/24 montelukast 10 mg tablet 10 mg PO DAILY 02/17/24 04/05/24 omeprazole 40 mg capsule,delayed 40 mg PO DAILY 02/17/24 04/05/24 release ondansetron HCl 4 mg tablet 4 mg PO .q8prn 02/17/24 04/05/24 pregabalin 300 mg capsule 300 mg PO BID 02/17/24 04/05/24 promethazine 25 mg tablet 25 mg PO .q6n prn 02/17/24 04/05/24 ropinirole 2 mg tablet 2 mg PO HS 02/17/24 04/05/24 sumatriptan succinate 100 mg tablet 100 mg PO DAILY PRN 02/17/24 04/05/24 tiotropium bromide 2.5 2 inh inhalation DAILY 02/17/24 04/05/24 mcg/actuation mist for inhalation (Spiriva Respimat) zolpidem 5 mg tablet 5 mg PO DAILY 02/17/24 04/05/24 benzonatate 150 mg capsule 150 mg PO TID PRN cough #30 caps 02/23/24 04/05/24 benzonatate 100 mg capsule 100 mg PO TID #90 caps 03/20/24 04/05/24 fluticasone propionate 115 2 puff inhalation BID #12 grams 03/20/24 04/05/24 mcg-salmeterol 21 mcg/actuation HFA inhaler (Advair HFA) prednisone 20 mg tablet 40 mg (2 x 20 mg) PO DAILY #10 tabs 03/20/24 04/05/24 umeclidinium 62.5 mcg/actuation 1 inh inhalation DAILY #30 ea 03/20/24 04/05/24 blister powder for inhalation (Incruse Ellipta) Previous Rx's ?Medication ?Instructions ?Recorded benzonatate 150 mg capsule 150 mg PO TID PRN cough #30 caps 02/23/24 benzonatate 100 mg capsule 100 mg PO TID #90 caps 03/20/24 fluticasone propionate 115 2 puff inhalation BID #12 grams 03/20/24 mcg-salmeterol 21 mcg/actuation HFA inhaler (Advair HFA) prednisone 20 mg tablet 40 mg (2 x 20 mg) PO DAILY #10 tabs 03/20/24 umeclidinium 62.5 mcg/actuation 1 inh inhalation DAILY #30 ea 03/20/24 blister powder for inhalation (Incruse Ellipta) Allergies Allergy/AdvReac Type Severity Reaction Status Date / Time ketorolac (From Toradol) Allergy Severe Anaphylaxis Verified 04/05/24 17:36 ibuprofen (From Motrin) Allergy Intermediate Itching Verified 04/05/24 17:36 General Stated Complaint: Abd Prob DMITRI: 3 Review of Systems All systems reviewed & are unremarkable except as noted in HPI and below Exam Narrative Exam Narrative: GENERAL APPEARANCE: Well-nourished, non-toxic, awake and alert, atraumatic, no acute distress. SKIN: Warm, pink, dry, intact, without rashes/lesions/ulcerations. HEAD: Normocephalic, atraumatic, normal hair distribution for gender/age. EYES: Pupils PERRLA, EOMs intact without nystagmus, normal conjunctiva, no exudates on lids/lashes. ENT: Nares patent, no circumoral cyanosis, no facial swelling NECK: Supple, trachea midline, painless cervical ROM. LUNGS/CHEST: Lungs CTA bilaterally- no rhonchi/rales/wheezes diffusely, non- labored respirations, normal A/P diameter, symmetrical expansion, no chest wall deformity HEART (CV/PV): Regular rate and rhythm without murmur, no peripheral edema, no JVD. ABDOMEN: Soft, non-distended, no guarding, diffuse abdominal tenderness, LLQ tenderness, epigastric tenderness, bilateral CVA tenderness to percussion. MSK: Normal ROM, no swelling/deformity to bilateral UEs or LEs, moving all extremities without weakness, no cyanosis, spine midline without tenderness, normal curvature. NEURO: Mental Status AAOx4 - alert to person, place, time, events No facial droop, no forehead involvement. Motor: No focal weakness - strength 5/5 in bilateral UEs and LEs, proximal and distal, symmetric. Sensory: sensation intact to light touch globally. Gait normal: patient ambulated without ataxia into ED room. PSYCH: euthymic, cooperative, pleasant, appropriate speech Course Vital Signs Vital signs: Vital Signs Temperature 36.5 C 04/05/24 17:17 Pulse 94 H 04/05/24 17:17 Blood Pressure 110/86 04/05/24 17:17 Pulse Oximetry 98 04/05/24 17:17 Temperature 36.5 C 04/05/24 17:17 Temperature Source Temporal Artery Scan 04/05/24 17:17 Pulse 94 H 04/05/24 17:17 Blood Pressure 110/86 04/05/24 17:17 Blood Pressure Position Sitting 04/05/24 17:17 Pulse Oximetry 98 04/05/24 17:17 Oxygen Delivery Method Room Air 04/05/24 17:17 Oxygen Flow Rate 0 04/05/24 17:17 Pain Level 9 04/05/24 17:17 Medical Decision Making This dictation utilizes [id number] dictation software and may contain unedited grammatical errors. 63 year-old female presents to ED today by POV/ambulating with a chief complaint of lower abdominal pain, intermittent episodic for months, but worse over the pa st severeal days- states no BM for a couple days. Quality described as severe abdominal pain and tenderness, some nausea and vomiting of bile, no radiation to black/bloody stools, fever, cough, shortness of breath, chest pain, dysuria- does endorse lower than usual urine output. Severity is described as severe. Palliating factors include nothing attempted. Provoking factors include nothing specific. Patients' medical history: History of lung cancer, COPD. Family and social history: noncontributory. Pertinent exam findings / vital signs include diffuse abdominal tenderness, right upper quadrant tenderness, epigastric tenderness, right lower quadrant tenderness or left lower quadrant tenderness bilateral CVA tenderness to percussion, nontoxic vitals, expiratory wheezes on auscultation mildly consistent with chronic COPD, neuro intact. Differential / pathologies of concern include SBO, colitis, appendicitis, obstructive biliary pathology, renal colic, gastroenteritis, Crohn's or IBD, diverticulitis, malignancy, gastritis. Diagnostic studies of: -CBC, CMP, CRP, lactate, lipase, procalcitonin, UA, blood cultures, x-ray ABD flat and upright with PA chest. -CBC shows no leukocytosis, does show elevated absolute neutrophils with low lymphocytes, elevated monocytes -CRP is severely elevated at 23.5 with an elevated ESR of 47 -Lactate 1.0, procalcitonin negative-do not suspect sepsis -Lipase within normal limits -Mildly low potassium at 3.4 without other acute abnormality of CMP -UA is benign -XR ABD w PA Chest shows nonspecific findings of some scant air-fluid levels, possible lung neoplasm noted on prior CTs with patients' history of lung CA Interventions of: -IVF 1L NS, 1g IV APAP, 4mg IV Zofran. ED Course/Assessment/Plan: 63-year-old female presents with severe abdominal pain this is, gone over the course of weeks to months, has been ongoing for several days and is severe, patient's exam warrants CT, x-ray abdomen with PA chest shows no acute SBO or toxic megacolon, labs are reassuring for no evidence of sepsis. Lipase and liver enzymes are normal, still the patient's level of pain warrants CT scan of the abdomen/pelvis especially with her severely elevated inflammatory markers- during the course of work-up CT came back up and was performed which shows no acute abnormality- placing patient on list for colonoscopy for concern with elevated inflammatory markers. No significant IBD reported in CT. Findings not consistent with perforated viscus with a lactate of 1.0 and a negative procalcitonin, not consistent with severe abdominal infection with no leukocytosis or leukopenia, there is concern for inflammatory condition of bowel such as diverticulitis with microperforation or inflammatory colitis with severely elevated inflammatory markers, no actionable abnormality on CMP with encouraging high potassium diet, no respiratory distress. Disposition of Abdominal Pain of Unknown Cause. Patient verbalized understanding of the plan and return to ED criteria and engaged in shared decision making. Medical Records Medical records reviewed: Yes I reviewed the patient's medical records. Imaging Data Radiologic Study: Attestation: I personally reviewed and interpreted this imaging study as follows: Imaging: X-Ray Radiologist's impression: EXAM: XR ABD FLAT UPRIGHT PA CHEST CLINICAL HISTORY: abdominal pain, constipation. TECHNIQUE: 2D digital imaging was performed. COMPARISON: CR XR CHEST 2V PA LATERAL from 02/17/[address] CHEST/ABD/PEL W from 02/17/2024 CR XR CHEST 2V PA LATERAL from 02/23/2024 FINDINGS: 3 views There bright chest x-ray reveals the concerning infiltrate/probable neoplasm in the right upper lobe, previously documented. Increased density in the right hilum is consistent with adenopathy is seen on the CT scan of 02/17/2024. No other focal findings in the opposite-left lung there are no pleural effusions. Heart size remains normal. Fusion plate in the cervical spine is noted. Supine and upright views of the abdomen reveal no evidence of bowel obstruction or free intraperitoneal air. There are surgical clips again noted in the central and left side of the epigastric region. No obvious masses nor bowel displacement. Symmetrical calcification is noted in soft tissues lateral to both sides the pelvis within tensor fascia carolann.. No fractures nor osseous les ions in the bones of the abdomen-pelvis. There are few air-fluid levels noted within what appears to be the ascending-right colon with the cecum being low lying and sitting on top the urinary bladder, seen on recent CT scan. There does not appear to be an obvious bowel obstruction. IMPRESSION: Nonspecific findings in the abdomen-pelvis as described above. No evidence of true bowel obstruction or free intraperitoneal air. Concerning infiltrate-probable neoplasm right upper lobe extending from hilum to the pleural surface, recently documented on CT scan and other imaging studies. Radiologic Study #2: Attestation: I personally reviewed and interpreted this imaging study as follows: Imaging: CT Scan Radiologist's impression: Exam: CT Abdomen And Pelvis With Contrast Exam date and time: 04/05/2024 8:06 PM Age: 63 years old Clinical indication: Other: Diffuse abdominal pain, ? colitis? Divertic TECHNIQUE: Imaging protocol: Computed tomography of the abdomen and pelvis with contrast. Contrast material: OMNI 350; Contrast volume: 100 ml; Contrast route: INTRAVENOUS (IV); COMPARISON: CT CHEST/ABD/PEL W 02/17/2024 1:00 PM FINDINGS: Liver: Normal. No mass. Gallbladder and biliary ducts: Normal. No calcified stones. No ductal dilation. Pancreas: Normal. No ductal dilation. Spleen: 1.8 cm splenic cyst. Adrenal glands: Normal. No mass. Kidneys and ureters: Cysts both kidneys largest 1.5 cm. No hydronephrosis. No ureteral stones. Stomach and bowel: Above average stool throughout the colon. No evidence of intestinal perforation or obstruction. Appendix: No evidence of appendicitis. Intraperitoneal space: Postoperative changes at the epigastric region. Vasculature: Aorta demonstrates mild atherosclerotic calcification. No abdominal aortic aneurysm. Lymph nodes: Unremarkable. No enlarged lymph nodes. Urinary bladder: Unremarkable as visualized. Reproductive: Unremarkable as visualized. Bones/joints: Unremarkable. No acute fracture. Soft tissues: Unremarkable. IMPRESSION: No acute abnormality. Dictated and Authenticated by: John Connors MD. Lab Data Lab results reviewed: Yes I reviewed the patient's lab results. Labs: 04/05/24 19:16 Blood Blood Culture - Pending 04/05/24 17:55 Blood Blood Culture - Pending Laboratory Tests Range/Units 04/05/24 04/05/24 17:55 18:10 WBC (4.4-10.8) 10^3/uL 10.71 RBC (3.93-5.22) 10^6/uL 3.85 L Hgb (11.2-15.7) g/dL 12.4 Hct (36.0-46.0) % 36.6 MCV (80-95) fL 95 MCH (27.0-33.0) pg 32.2 MCHC (32.0-36.0) % 33.9 RDW (11.7-14.6) % 13.8 Plt Count (130-400) 10^3/uL 279 MPV (8.0-11.0) fL 8.8 Immature Gran % % 0.4 Neutrophils % % 79.0 Lymphocytes % % 10.7 Monocytes % % 9.2 Eosinophils % % 0.5 Basophils % % 0.2 Nucleated RBC % (0.0-0.3) % 0.0 Absolute Neutrophils (1.2-6.7) 10^3/uL 8.46 H Absolute Lymphocytes (1.2-3.4) 10^3/uL 1.15 L Absolute Monocytes (0.1-0.8) 10^3/uL 0.99 H Absolute Eosinophils (0.0-0.7) 10^3/uL 0.05 Absolute Basophils (0.0-0.2) 10^3/uL 0.02 ESR (0-30) mm/hr 47 H VBG Lactate (0.6-1.4) mmol/L 1.0 Sodium (136-145) mmol/L 142 Potassium (3.5-5.1) mmol/L 3.4 L Chloride (98-107) mmol/L 106 Carbon Dioxide (21.0-32.0) mmol/L 25.8 Anion Gap (3-11) mmol/L 10.2 BUN (7-18) mg/dL 9 Creatinine (0.55-1.02) mg/dL 0.6 Est GFR (CKD-EPI 2020) (mL/min/1.73m2) 99.55 Glucose (74-106) mg/dL 130 H Calcium (8.5-10.1) mg/dL 8.9 Total Bilirubin (0.2-1.0) mg/dL 0.64 AST (15-37) U/L 19 ALT (14-59) U/L 37 Alkaline Phosphatase (46-116) U/L 82 C-Reactive Protein (<or=0.5) mg/dL 23.58 H Total Protein (6.4-8.2) g/dL 7.0 Albumin (3.4-5.0) g/dL 2.9 L Lipase (16-77) U/L 16 Procalcitonin ng/mL < 0.1 Urine Color (Yellow) Yellow Urine Clarity (Clear) Clear Urine pH (5-8) 6.5 Ur Specific Ronks (1.005-1.025) 1.020 Urine Protein (Neg-Trace) mg/dL Negative Urine Ketones (Negative) mg/dL Negative Urine Blood (Negative) Negative Urine Nitrite (Negative) Negative Urine Bilirubin (Negative) Negative Urine Urobilinogen (Up to 0.2) mg/dL 0.2 Ur Leukocyte Esterase (Negative) Negative Urine Glucose (Negative) mg/dL Negative Quality:SDOH Health Related Social Needs: No Data to Display PFSH All Active Problems (Updated 04/05/24 @ 21:32 by HIRAM Cordero) Abdominal pain of unknown cause (Acute) History of lung cancer (Acute) Cigarette smoker (Acute) COPD (chronic obstructive pulmonary disease) (Chronic) Social History Smoking/Tobacco Use Status: Current, status unknown Smoking risk assessment performed?: Yes Drug use: Never Substance use type: does not use Do you feel safe at home: Yes Do you feel safe in your relationship?: Yes
[2024-04-05 18:04] LABS: Abs Immature Grans 0.04 10^3/uL (0.0-0.06); Absolute Basophil Count 0.02 10^3/uL (0.0-0.2); Absolute Eosinophil Count 0.05 10^3/uL (0.0-0.7); Absolute Lymphocyte Count 1.15 10^3/uL (1.2-3.4); Absolute Monocyte Count 0.99 10^3/uL (0.1-0.8); Absolute Neutrophil Count 8.46 10^3/uL (1.2-6.7); Basophils % 0.2 %; Eosinophils % 0.5 %; HCT 36.6 % (36.0-46.0); HGB 12.4 g/dL (11.2-15.7); Immature Grans % 0.4 %; Lymphocytes % 10.7 %; MCH 32.2 pg (27.0-33.0); MCHC 33.9 % (32.0-36.0); MCV 95 fL (80-95); MPV 8.8 fL (8.0-11.0); Monocytes % 9.2 %; Platelet Count 279 10^3/uL (130-400); RBC 3.85 10^6/uL (3.93-5.22); RDW 13.8 % (11.7-14.6); RDW-SD 48.5 fL; WBC 10.71 10^3/uL (4.4-10.8)
[2024-04-05 18:07] LABS: ESR 47 mm/hr (0-30)
[2024-04-05] MEDS: Normal Saline 1,000 ML 1000 ML IV (18:10)
[2024-04-05] MEDS: Ondansetron 4 MG/2 ML VIAL IVP (18:11)
[2024-04-05] MEDS: ACETAMINOPHEN 1,000 MG/100 ML BTL 400 MG IVPB (18:13)
[2024-04-05 18:23] LABS: ALT 37 U/L (14-59); AST 19 U/L (15-37); Albumin 2.9 g/dL (3.4-5.0); Alkaline Phosphatase 82 U/L (46-116); Anion Gap 10.2 mmol/L (3-11); BUN 9 mg/dL (7-18); Bilirubin, Total 0.64 mg/dL (0.2-1.0); C-Reactive Protein 23.58 mg/dL (<or=0.5); CO2 25.8 mmol/L (21.0-32.0); CREATININE 0.6 mg/dL (0.55-1.02); Chloride 106 mmol/L (98-107); Estimated GFR 99.55 (mL/min/1.73m2); Glucose 130 mg/dL (74-106); Lipase 16 U/L (16-77); Potassium 3.4 mmol/L (3.5-5.1); Sodium 142 mmol/L (136-145)
[2024-04-05 18:33] LABS: Calcium 8.9 mg/dL (8.5-10.1)
[2024-04-05 18:37] LABS: Procalcitonin < 0.1 ng/mL
[2024-04-05 19:10] LABS: Bilirubin Negative (Negative); Blood Negative (Negative); Clarity Clear (Clear); Glucose Negative (Negative); Ketones Negative (Negative); Leukocyte Esterase Negative (Negative); Nitrite Negative (Negative); Urobilinogen 0.2 mg/dL (Up to 0.2); pH 6.5 (5-8)
--- NOTE | 2024-04-05 19:45 | DI.CT_ITS ---
Exam(s) CT ABDOMEN PELVIS W EXAM: CT ABDOMEN PELVIS W CLINICAL HISTORY: diffuse abdominal pain, ?colitis?divertic TECHNIQUE: Imaging Protocol: Axial computed tomography images with coronal and sagittal reformatted images were created and reviewed. CONTRAST MATERIAL: Intravenous: Omnipaque 350 Contrast volume:100 mL Oral: No COMPARISON: CT CT CHEST/ABD/PEL W from 02/17/2024 FINDINGS: ABDOMEN: Lung Bases: There again seen postsurgical changes at the gastroesophageal junction with a small hiata l hernia. Liver: No measurable mass. The liver measures 18 cm long. There does appear to be decreased attenuat ion of the liver suggesting fatty infiltration. Portal, Superior Mesenteric, and Splenic Veins: Unremarkable. Gallbladder and Biliary Tract: No radiodense calculus or dilation. Pancreas: Normal density, no abnormal calcifications or inflammatory process. Spleen: There is a stable hypodensity in the posterior spleen. This may represent a cyst or hemangio ma. Adrenals: No masses seen. Kidneys: Normal size, contour and axis. There is a nonobstructing stone in the midpole of the right k idney. There are left renal cysts. No follow-up is recommended. Very tiny hyperdensities are seen in the distal ureter on the right. (Series 6, images [phone]). This may reflect nonobstructing ston es. Note is made of a retroaortic left renal vein. Abdominal Aorta: Abdominal portion non-dilated. Atherosclerotic calcification is present. Bowel: No obstruction or bowel wall thickening. Appendix is unremarkable. There are scattered diverti culi in the colon but no evidence of acute diverticulitis. Peritoneal Cavity: No ascites, collection or mesenteric inflammatory response. No free air. Lymph Nodes: Within normal limits. Bones: Within normal limits for the patient's age. Soft Tissues: Unremarkable. PELVIS: Bladder: Symmetric distention, no gross wall thickening. Reproductive Organs: Status post hysterectomy. Lymph Nodes: Within normal limits. Bones: Within normal limits for the patient's age. IMPRESSION: 1. No acute abdominal or pelvic process. 2. Right nephrolithiasis. No hydronephrosis. Very tiny hyperdensities are seen in the distal right ureter which may represent nonobstructing stones. 3. Mild hepatomegaly and hepatic steatosis. RADIATION DOSE DELIVERED: Total DLP DATA REPOSITORY: All CT scans at this facility are submitted to the National Radiology Data Registry (NRDR) Dose Index Registry (DIR) with the [employer] (A[employer]). RADIATION OPTIMIZATION: All CT scans at this facility use at least one of these dose optimization te chniques: automated exposure control; mA and/or kV adjustment per patient size (includes targeted exa ms where dose is matched to clinical indication); or iterative reconstruction.
[2024-04-05] MEDS: Omnipaque 350 MG/ML 100 ML BTL IJ (20:08)
[2024-04-05] MEDS: Normal Saline - Diluent 50 ML VIAL IJ (20:08)
[2024-04-05] MEDS: MORPHine 4 MG/ML SYR IVP (20:30)
--- NOTE | 2024-04-05 21:29 | DI.VRAD_ITS ---
PROCEDURE INFORMATION: Exam: CT Abdomen And Pelvis With Contrast Exam date and time: 04/05/2024 8:06 PM Age: 63 years old Clinical indication: Other: Diffuse abdominal pain, ? colitis? Divertic TECHNIQUE: Imaging protocol: Computed tomography of the abdomen and pelvis with contrast. Contrast material: OMNI 350; Contrast volume: 100 ml; Contrast route: INTRAVENOUS (IV); COMPARISON: CT CHEST/ABD/PEL W 02/17/2024 1:00 PM FINDINGS: Liver: Normal. No mass. Gallbladder and biliary ducts: Normal. No calcified stones. No ductal dilation. Pancreas: Normal. No ductal dilation. Spleen: 1.8 cm splenic cyst. Adrenal glands: Normal. No mass. Kidneys and ureters: Cysts both kidneys largest 1.5 cm. No hydronephrosis. No ureteral stones. Stomach and bowel: Above average stool throughout the colon. No evidence of intestinal perforation or obstruction. Appendix: No evidence of appendicitis. Intraperitoneal space: Postoperative changes at the epigastric region. Vasculature: Aorta demonstrates mild atherosclerotic calcification. No abdominal aortic aneurysm. Lymph nodes: Unremarkable. No enlarged lymph nodes. Urinary bladder: Unremarkable as visualized. Reproductive: Unremarkable as visualized. Bones/joints: Unremarkable. No acute fracture. Soft tissues: Unremarkable. IMPRESSION: No acute abnormality. Dictated and Authenticated by: John Connors MD. Ordering:GYPSY Sewell MD
[2024-04-05 21:47] VITALS: BP 110/86; PULSE 94; RESP 16; TEMP 36.5; O2SAT 98
== END 2024-04-05 21:47 | disposition home or self-care (01) ==
PROVIDERS: Emergency Provider Physician Assistant
DX: R10.32 Left lower quadrant pain (principal)
CPT/HCPCS: 36415; 80053; 83690; 84145; 85652; 87040; 96361; 96374; 96375; 99285; 74022; 74177; 81003; 83605; 85025; 86140; 99283; J0131; J2270; J2405; J3490

== ENCOUNTER 2024-05-19 14:50 | Outpatient (REF) | payer MEDICARE, MEDICAID, SELFPAY ==
[2024-05-19 16:16] LABS: *AMPHETAMINES SCREEN URINE Negative (Negative); *BARBITURATES SCREEN URINE Negative (Negative); *BENZODIAZEPINES SCREEN URINE Negative (Negative); Cannabinoids THC Positive (Negative); Cocaine Screen,Urine Positive (Negative); METHADONE URINE SCREEN Negative (Negative); OPIATES URINE SCREEN Positive (Negative)
[2024-05-19 16:18] LABS: Tricyclic Antidepressants Positive (Negative)
== END 2024-05-19 14:51 | disposition home or self-care (01) ==
LOC: LBN 14:50
PROVIDERS: PCP Nurse Practitioner Family; Visit Provider Nurse Practitioner Family
DX: Z51.81 Encounter for therapeutic drug level monitoring (principal)
CPT/HCPCS: 80307

== ENCOUNTER 2024-06-10 06:57 | Emergency (ER) | payer MEDICARE, MEDICAID, SELFPAY ==
[2024-06-10] VITALS (21 sets, daily range): BP systolic 109–128; BP diastolic 63–85; PULSE 76–88; RESP 5–28; TEMP 37; O2SAT 94–100
--- NOTE | 2024-06-10 06:45 | RT.EKG_ITS ---
APPROVED REPORT Exam: Resting ECG Reason for Exam: SOB Patient Location: E HR:89 bpm ECG Measurements Heart Rate 89 AXIS VT 132 P 75 QRSd 86 QRS 58 QT 348 T 54 QTc 425 Conclusion Sinus rhythm, rate 89 No STEMI No significant changes from priors
--- NOTE | 2024-06-10 07:00 | DI.RAD_ITS ---
Exam(s) XR CHEST 2V PA LATERAL EXAM: XR CHEST 2V PA LATERAL CLINICAL HISTORY: Shortness of breath TECHNIQUE: 2D digital imaging was performed of the chest. Two images were obtained. PA and lateral views were obtained. COMPARISON: CR XR ABD FLAT UPRIGHT PA CHEST from 04/05/2024 FINDINGS: MEDIASTINUM: Normal. HEART: Normal. PULMONARY VASCULATURE: Normal. LUNGS: Stable left apical pleural based opacity. No new infiltrates are seen in the lungs. PLEURAL SPACE: No pleural effusion or pneumothorax. BONE:Within normal limits for the patient's age. OTHER FINDINGS:Normal. IMPRESSION: Stable opacity in the right lung apex. Neoplasm cannot be excluded as has been stated on prior exami nations. PET scan may be of use for further evaluation. DATA REPOSITORY: RADIATION DOSE DELIVERED:
--- OUTSIDE RECORDS SUMMARY | 2024-06-10 07:03 | XMS_ITS | Encounter Summary ---
Author Organization [facility] Address [address] [place] [address] Care Team Providers Care Rn Security Name Role Phone Jean Munoz MD Primary Care Provider Manny Rizzo MD Unavailable Afia Valle MD Unavailable [phone] Reason for Visit * Reason Onset Date Comments Medical Records 03/28/2024 Encounter Details Date Type Department Care Team (Late st Contact Info) Description 03/28/2024 Telephone [facility] [address] [place] [address] Jean Munoz MD [address] [place] [address] Medical Records Social History Tobacco Use Types Packs/Day Years Used Date Smoking Tobacco: Former Cigarettes 1.5 37 0 09/13/1975 - 09/13/2012 Smokeless Tobacco: Never Alcohol Use Standard Drinks/Week Comments No 0 (1 standard drink = 0.6 oz pur e alcohol) rarely Overall Financial Resource Strain (CARDIA) Answe r Date Recorded How hard is it for you to pa y for the very basics like food, housing, medical care, and heating? Hard 07/15/2023 PHQ-2 Answer Date Recorded PHQ-2 SUBTOTAL 3 03/23/2024 Hunger Vital Sign Answer Date Recorded Within the past 12 months, y ou worried that your food would run out before you got the money to buy more. Often true 07/15/20 23 Within the past 12 months, t he food you bought just didn't last and you didn't have money to get more. Often true 07/15/2023 PRAPARE - Transportation Answer Date Re corded In the past 12 months, has l ack of transportation kept you from medical appointments or from getting medications? Yes 10/2022 In the past 12 months, has l ack of transportation kept you from meetings, work, or from getting things needed for daily living? Yes 07/15/2023 Housing Stability Vital Sign Answer Gustavo e Recorded In the last 12 months, was t here a time when you were not able to pay the mortgage or rent on time? Yes 07/15/2023 In the last 12 months, how many places have you lived? 3 07/15/2023 In the last 12 months, was t here a time when you did not have a steady place to sleep or slept in a fci (including now)? Yes 07/15/2023 Interpersonal Safety Answer Date Record ed How often does anyone, claudia long family, hit, punch or physically hurt you? Never 07/15/2023 How often does anyone, claudia long family, insult, scream, curse or threaten to hurt you? Never 07/15/2023 Sex and Gender Information Value Date Recorded Sex Assigned at Not on file Gender Identity Female 08/11/2019 16:07 EST Sexual Orientation Not on file documented as of this encounter Functional Status Functional Status Response Date of Assess ment Are you deaf or do you have serious difficulty h earing? No 11/14/2022 Are you blind or do you have serious difficulty seeing, even when wearing glasses? No 12/27/2016 Do you have difficulty dress ing or bathing? (5 years old or older) No 12/27/2016 Because of a physical, menta l, or emotional condition, does this person have difficulty doing errands alone such as visiting a doctor's office or shopping? Yes 05/26/2018 Cognitive Status Response Date of Assessm ent Because of a physical, menta l, or emotional condition, does this person have serious difficulty concentrating, remembering, or making decisions? Yes 05/26/2018 documented as of this encounter Miscellaneous Notes * Telephone Encounter - Dot Patel - 03/28/2024 1245 EDT Reason for Call: Medical Records Summary/Symptoms: Call out to patient, she says she signed a release at her new doctor's office andasked them to send it to [facility]. I told the patient she may want to call the new doctor's office and ask them if they have received her records, and if not, ask them to send it again. Onset and Duration? N/a Appointment Offered? No Dot Patel 03/28/2024 12:47 documented in this encounter Plan of Treatment Upcoming Encounters Date Type Department Care Team (Late st Contact Info) Description 06/29/2024 14:15 EDT Office Visit [facility] Medicine [facility] [address] [place] [address] Jean Munoz MD [address] [place] [address] documented as of this encounter Visit Diagnoses Not on filedocumented in this encounter Care Teams Rn Security Relationship Specialty Start Date End Date Jean Munoz MD [address] [place] [address] PCP - General 12/31/08 Manny Rizzo MD [address] [place] [id number] 04/20/10 Afia Valle MD [address] [facility] [address] [place] [id number] MD Care Team Radiation Oncology 07/02/21 documented as of this encounter
--- OUTSIDE RECORDS SUMMARY | 2024-06-10 07:03 | XMS_ITS | Encounter Summary ---
Author Organization [facility] Address [address] [place] [address] Care Team Providers Care Die Technician Name Role Phone Jean Munoz MD Primary Care Provider aMnny Rizzo MD Unavailable Afia Valle MD Unavailable Reason for Visit * Reason Comments Medications Refill Encounter Details Date Type Department Care Team (Late st Contact Info) Description 04/24/2024 Refill [facility] Medicine [facility] [address] [place] [address] Jean Munoz MD [address] [place] [phone] Medications Refill Social History Tobacco Use Types Packs/Day Years [...] place to sleep or slept in a snf (including now)? Yes 07/15/2023 Interpersonal Safety Answer [...] Yes 05/26/2018 documented as of this encounter Ordered Prescriptions Prescription Sig Dispensed Refills Start Date End Da te zolpidem (AMBIEN) 5 mg tabletIndications:Insomnia , unspecified type Take 1 Tablet by mouth at bedtime. Daily Max: 5 mg 28 Tablet 05/10/2024 documented in this encounter Miscellaneous Notes * Telephone Encounter - Armand Chapman RN - 04/28/2024 1250 EDT Left message for patient to call back. ARMAND CHAPMAN RN 04/28/2024 12:50 * Telephone Encounter - Armand Chapman RN - 04/25/2024 1518 EDT Left message for patient to call back. -has patient established with a new provider? ARMAND CHAPMAN RN 04/25/2024 15:18 * Telephone Encounter - Jean Munoz MD - 04/25/2024 1510 EDT I think she is followed by another provider now, please confirm. * Telephone Encounter - Armand Chapman RN - 04/25/2024 1056 EDT Images from the original note were not included. Requested Prescriptions Pending Prescriptions Disp Refills zolpidem (AMBIEN) 5 mg tablet [Pharmacy Med Name: zolpidem 5 mg tablet] 28 Tablet 5 Sig: TAKE ONE TABLET BY MOUTH DAILY AT BEDTIME. DAILY MAX: 5 MG Pharmacy: [facility] Last Refill Date: 11/21/23 Last Visit Date: 03/23/24 Next Non-Acute Visit Date Scheduled with Care Team: No. Vpms check: Routing to provider to review. ARMAND CHAPMAN RN 04/25/2024 10:56 documented in this encounter Plan of Treatment Upcoming Encounters Date Type Department Care Team (Late st Contact Info) Description 06/29/2024 14:15 EDT Office Visit [facility] [address] [place] [address] Jean Munoz MD [address] [place] [address] documented as of this encounter Visit Diagnoses Diagnosis Insomnia, unspecified type- Primary Screening for osteoporosis- Primary Special screening for osteoporosis Primary narcolepsy without cataplexy Chronic pain syndrome Chronic low back pain Lumbago Chronic use of opiate for therapeutic purpose Pain medication agreement Encounter for long-term (current) use of other medications Screen for colon cancer Special screening for malignant neoplasms, colon documented in this encounter Discontinued Medications Medication Sig Discontinue Reason Start Date End Da te zolpidem (AMBIEN) 5 mg tabletIndications:Insomni a, unspecified type Take 1 Tablet by mouth at bedtime. Daily Max: 5 mg Reorder 11/21/2023 05/10/2024 documented as of this encounter Care Teams Die Technician Relationship Specialty Start Date End Date Jean Munoz MD [address] [place] [address] PCP - General 12/31/08 Manny Rizzo MD [address] [place] [phone] 04/20/10 Afia Valle MD [address] [facility] [address] [place] [phone] Care Team Radiation Oncology 07/02/21 documented as of this encounter
--- OUTSIDE RECORDS SUMMARY | 2024-06-10 07:03 | XMS_ITS | Clinical Summary ---
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 Encounters Date Type Department Care Team (Late st Contact Info) Description 06/29/2024 14:15 EDT [facility] Visit [facility] [address], [place] [id number] Jean Munoz MD [address] [place] [phone] Health Maintenance Due Date Last Done Comments Cologuard (Colon Cancer Screening) 12/30/2003 FIT Test (Colon Cancer Screening) 12/30/2003 Sigmoidoscopy (Colon Cancer Screening) 12/30/2003 RSV Immunization ( o r 60+ Years) (1 - 1-dose 60+ series) 2018 Colonoscopy (Colon Cancer Screening) 07/29/2019 07/29/2009 Colorectal Cancer Screening 07/29/2019 Lipid Profile Screening (Cholesterol) 07/01/2021 07/01/2016, 01/22/2012, 12/18/2010, Additional history exists Breast Cancer Screening 11/23/2021 11/24/19 20, 06/08/2016, 06/21/2013, Additional history exists Urine Drug Screen 04/24/2022 04/24/2021, , 03/03/2018, Additional history exists Fall Risk Screening 12/30/2023 Osteoporosis Screening 12/30/2023 COVID-19 Vaccine ( - 2023-2 5 season) 2024 07/15/2023, 08/27/2022, 07/22/2021, Additional history exists Influenza Immunization (Adul t) (#1) 2024 07/15/2023, 07/22/2021, 07/18/2019, Additional history exists Current Opioid Misuse Measurement 07/15/2024 07/15/2023, 07/15/2023, 04/24/2021, Additional history exists Functional Assessment 07/15/2024 07/15/2023 , 07/15/2023, 04/24/2021, Additional history exists Opioid Informed Consent 07/15/2024 07/15/20 23, 04/25/2021, 04/24/2021, Additional history exists Prescription Agreement 07/15/2024 3, 04/24/2021, 04/25/2019, Additional history exists Social Determinants Of Healt h (SDOH) 07/15/2024 07/15/2023, 04/24/2021, 04/25/2019 [place] Prescription Monitor ing System 07/15/2024 07/15/2023, 12/15/2022, 08/26/2021, Additional history exists Lung Cancer Screening 08/25/2024 08/25/2023 , 01/18/2023, 07/21/2022, Additional history exists Depression Screening 03/23/2025 03/23/2024, 01/24/2024, 12/27/2023, Additional history exists Preventive Care Visit 07/15/2025 07/15/2023 , 07/15/2023, 07/01/2016, Additional history exists Tetanus (Adult) Immunization 04/24/203108/2021, 04/21/2010, 04/01/2000 Hepatitis C Screen Completed 08/26/2004, 05/26/2000 Pertussis (Adult) Immunization Completed 04/21/2010 Asthma Action Plan Discontinued 03/30/2014 HIV Screening Completed 12/27/2016, 07/01/2016 Review Of Systems Adverse Effects Discontinued 018 Copd Action Plan Completed 08/30/2019, , 03/30/2014 Shingles Immunization Completed 04/24/2021, 018 Lung Function Test (Spirometry) Discontinued 01/27/2023, 06/16/2021, 03/03/2017, Additional history exists Pneumococcal Immunization (65+) Completed 08/04/2023, 09/09/2015, 08/10/2006 Pill Count Discontinued Medical Devices Implanted Type Area Software Administrator Device Identifier Shelf Expiration Date Model / Serial / Lot Cspine Fusion Ortho Implant Procedures Procedure Name Priority Date/Time Associated Diagnosis Comments CT CHEST WO CONTRAST Routine 08/25/2023 11:33 EST Malignant neoplasm of upper lobe, right bronchus or lung (HCC-CMS) PULMONARY FUNCTION TESTING Routine 01/27/2023 12:18 EDT Chronic obstructive pulmonary disease, unspecified COPD type (HCC-CMS) POCT DRUG SCREEN, URINE Routine 04/24/2021 Chronic pain syndrome Pain medication agreement MA BREAST SCREENING ROYCE BILATERAL Routine 11/24/2019 13:14 EDT Encounter for screening mammogram for malignant neoplasm of breast HIV 1/2 ANTIGEN AND ANTIBODY, 4TH GENERATION Routine 12/27/2016 5:58 EDT LIPID PROFILE (INCLUDES CHOLESTEROL, TRIGLYCERIDES, HDL, LDL) Routine 07/01/2016 14:54 EDT Tobacco dependence in remission COLONOSCOPY PROCEDURE Routine 07/29/2009 HEPATITIS C AB W REFLEX TO HCV RNA BY PCR Routine 08/26/2004 12:21 EST from Last 3 Months or Most Recently Relevant to Health Maintenance Results * CT CHEST WO CONTRAST (08/25/2023 11:33 EST) Anatomical Region Laterality Modality Chest Computed Tomogra phy 08/25/2023 12:2 9 EST Impressions 08/25/2023 12:29 EST Evolving radiation changes in the right upper lobe. Multifocal findings of bronchiolitis involving the left lung with a focal area of pneumonia in the anterior segment of the right upper lobe. Stable right hilar mass with airway narrowing. No other interval changes from the studies of Jan, 2023. [id number] Narrative 08/25/2023 12:[address] CHEST WO CONTRAST ??08/25/2023 12:00 PM Clinical History/Comments: Lung cancer s/p XRT; Non-small cell lung cancer (NSCLC), non-metastatic, assess treatment response; Lung cancer s/p XRT;C34.11:Malignant neoplasm of upper lobe, right bronchus or lung (HCC-CMS) Technique: CT scan of the chest was performed without contrast material. Thin section reconstructions were performed. This CT used either dose modulation and/or iterative reconstruction techniques to lower radiation dose. Comparison: Chest CT without contrast January 18, 2023. Findings: Lower neck: Normal. Mediastinum and hazel (non-vascular): Stable left lower paratracheal lymph nodes again identified. Unchanged right lower cervical lymph node. There has been surgery at the gastroesophageal junction with a hiatal hernia. The hernia sac contains a filling defect likely reflecting redundant mucosa which I believe was present on multiple comparison CT examinations and is unchanged. Cardiovascular: There is mild aortic and arch vessel atherosclerotic calcification. There is mild coronary arterial atherosclerotic calcification. Lungs and airways: The trachea is normal. There is some mild narrowing of the anterior segment and occlusion of the apical segmental right upper lobe bronchi. There is increasing consolidation within the central right upper lobe extending to the periphery likely reflecting evolving radiation related changes with stable right upper lobe volume loss evident. The more centrally situated mass within the right hilum remains stable. There is moderate underlying centrilobular emphysema. The below are thin-walled cystic lesion within the left upper lobe peripherally is again seen and unchanged, with a focal small associated area of nodular opacity at its periphery which appears stable. There are multiple areas of small airways disease manifested as tree-in-bud opacities within the left upper lobe peripheral portions of the left lower lobe that have developed from the studies of Jan, 2023. In addition there is a focal area of minimal consolidation within the anterior segment of the right upper lobe anteriorly and inferiorly. Pleura: There is focal thickening of the right upper costal pleural surface associated with radiation related changes in the lungs. Upper abdomen (limited to upper abdomen, not optimized for abdominal imaging): There is a small 2 mm calcification in the midpole the right kidney. There is a partially visualized cortical cyst in the midpole of the left kidney laterally. An additional tiny cortical cyst is seen within the anterolateral aspect of the midpole of the left kidney again seen previously. Chest wall soft tissues: No abnormalities in the chest wall soft tissues. Bones: Patient has undergone lower anterior cervical spinal fusion. Procedure Note Jerad Kraft MD - 08/25/2023 CT CHEST WO CONTRAST 08/25/2023 12:00 PM Clinical History/Comments: Lung cancer s/p XRT; Non-small cell lung cancer (NSCLC), non-metastatic,assess treatment response; Lung cancer s/p XRT;C34.11:Malignant neoplasmof upper lobe, right bronchus or lung (HCC-CMS) Technique: CT scan of the chest was performed without contrast material. Thin sectionreconstructions were performed. This CT used either dose modulation and/or iterative reconstructiontechniques to lower radiation dose. Comparison: Chest CT without contrast January 18, 2023. Findings: Lower neck: Normal. Mediastinum and hazel (non-vascular): Stable left lower paratracheal lymphnodes again identified. Unchanged right lower cervical lymph node. Therehas been surgery at the gastroesophageal junction with a hiatal hernia.The hernia sac contains a filling defect likely reflecting redundantmucosa which I believe was present on multiple comparison CT examinationsand is unchanged. Cardiovascular: There is mild aortic and arch vessel atheroscleroticcalcification. There is mild coronary arterial atheroscleroticcalcification. Lungs and airways: The trachea is normal. There is some mild narrowing ofthe anterior segment and occlusion of the apical segmental right upperlobe bronchi. There is increasing consolidation within the central rightupper lobe extending to the periphery likely reflecting evolving radiationrelated changes with stable right upper lobe volume loss evident. The morecentrally situated mass within the right hilum remains stable. There ismoderate underlying centrilobular emphysema. The below are thin-walledcystic lesion within the left upper lobe peripherally is again seen andunchanged, with a focal small associated area of nodular opacity at itsperiphery which appears stable. There are multiple areas of small airwaysdisease manifested as tree-in-bud opacities within the left upper lobeperipheral portions of the left lower lobe that have developed from thestudies of Jan, 2023. In addition there is a focal area of minimalconsolidation within the anterior segment of the right upper lobe anteriorly and inferiorly. Pleura: There is focal thickening of the right upper costal pleuralsurface associated with radiation related changes in the lungs. Upper abdomen (limited to upper abdomen, not optimized for abdominalimaging): There is a small 2 mm calcification in the midpole the rightkidney. There is a partially visualized cortical cyst in the midpole ofthe left kidney laterally. An additional tiny cortical cyst is seen withinthe anterolateral aspect of the midpole of the left kidney again seenpreviously. Chest wall soft tissues: No abnormalities in the chest wall softtissues. Bones: Patient has undergone lower anterior cervical spinal fusion. IMPRESSION Evolving radiation changes in the right upper lobe. Multifocal findings of bronchiolitis involving the left lung with a focalarea of pneumonia in the anterior segment of the right upper lobe. Stable right hilar mass with airway narrowing. No other interval changes from the studies of Jan, 2023. [id number] Afia Valle MD IMG CT ORDERAB LES * PULMONARY FUNCTION TESTING (01/27/2023 12:18 EDT) 01/27/2023 12:1 8 EDT Jed Gannon MD PFT ORDERABLES [facility] PFT * (ABNORMAL) POCT DRUG SCREEN, URINE (04/24/2021) Temperature, POC Testing delayed; Temp not applicable(A) 90 - 100 ??F [facility] POINT OF CARE Creatinine, POC 100 mg/dL >20 mg/dL mg/dl [facility] POINT OF CARE Specific [place], POC 1.025 1.005 - 1.025 [facility] POINT [facility] C[facility] pH, POC 5.0 4.0 - 9.0 [facility] POIN T OF CARE THC, POC Preliminary positive, Result should be confirmed if clinically indicated(A) . [facility] Cocaine, POC Negative . [facility] P OINT OF CARE Opiates 300, POC Preliminary positive, Result should be confirmed if clinically indicated(A) . [facility] POINT OF CARE Amphetamine, POC Negative . [facility] POINT OF CARE Methamphetami ne, POC Negative . [facility] POINT OF CARE Barbiturates, POC Negative . [facility] POINT OF CARE Benzodiazapen e, POC Negative . [facility] POINT OF CARE MDMA, POC Negative . [facility] POIN T OF CARE Methadone, POC Negative . [facility] POINT OF CARE Oxycodone, POC Negative . [facility] POINT OF CARE PCP, POC Negative . [facility] POIN T OF CARE Buprenorphine , POC Negative . [facility] POINT OF CARE Urine URINE / Unknown 04/24/2021 Jean Munoz MD POINT OF CARE T EST ORDERABLES [facility] POINT OF CARE * MA BREAST SCREENING ROYCE BILATERAL (11/24/2019 13:14 EDT) Anatomical Region Laterality Modality Breast Bilateral Mammography 11/30/2019 14:3 7 EDT Impressions 11/30/2019 14:37 EDT Negative, no evidence of malignancy. RECOMMENDATION: Routine screening mammography is recommended. OVERALL ASSESSMENT: BI-RADS 1: Negative These results will be communicated to your patient via a lay letter from Radiology. If any additional imaging is needed we will contact your patient directly. I have personally reviewed the images and the above interpretation and agree with the findings. Narrative 11/30/2019 14:37 EDT MA BREAST SCREENING ROYCE BILATERAL ??11/24/2019 1:00 PM History: screening Comparison: ??Comparison has been made to previous images. Technique: Routine 3D tomosynthesis with synthesized 2D views with CAD Bilateral Breast Composition: The breast tissue is almost entirely fatty. Bilateral Breast Findings: ??No suspicious mass, calcifications or architectural distortion is seen. Procedure Note Shruthi Quinn MD - 11/30/2019 MA BREAST SCREENING ROYCE BILATERAL 11/24/2019 1:00 PM History: screening Comparison: Comparison has been made to previous images. Technique: Routine 3D tomosynthesis with synthesized 2D views with CAD Bilateral Breast Composition: The breast tissue is almost entirely fatty. Bilateral Breast Findings: No suspicious mass, calcifications orarchitectural distortion is seen. IMPRESSION Negative, no evidence of malignancy. RECOMMENDATION: Routine screening mammography is recommended. OVERALL ASSESSMENT: BI-RADS 1: Negative These results will be communicated to your patient via a lay letter fromRadiology. If any additional imaging is needed we will contact yourpatient directly. I have personally reviewed the images and the above interpretation andagree with the findings. Jean Munoz MD IMG MAMMOGRAPHY ORDERABLES * HIV 1/2 ANTIBODY (12/27/2016 5:58 EDT) Pathologist [facility] HIV 1/2 Antibody Negative 12/29/19 17 12:18 EDT [facility] Comment: If acute HIV-1 infection is suspected in a high risk patient, submit plasma specimen for HIV-1 RNA quantification test. Reference Range: ??Negative Assayed utilizing [employer] chemiluminescent technology. BLOOD SPECIMEN / Unknown 12/27/2016 5:58 EDT 12/27/2016 6:05 EDT Cate Bro MD IMMUNOLOGY AN D SEROLOGY ORDERABLES [facility] [address] [place] [address] * LIPID PROFILE (INCLUDES CHOLESTEROL, TRIGLYCERIDES, HDL, LDL) (07/01/2016 14:54 EDT) Pathologist [facility] Cholesterol 242 mg/dl 07/01/2016 18:28 [facility] Comment: Desirable:<200 Borderline High:200-239 High:>ws=145 Triglycerides 213 mg/dl 07/01/2016 18:28 [facility] Comment: Normal:<150 Borderline High:150-199 High:200-499 Very High:>zf=331 HDL 64 mg/dl 07/01/2016 18:28 [facility] Comment: Low:<40 Normal:40-60 Desirable: >60 LDL, Calculated 135 mg/dl 6 18:28 [facility] Comment: Optimal:<100 Near Optimal:100-129 Borderline High:130-159 High:160-189 Very High:>oi=099 Chol/HDL Ratio 3.8 07/01/2016 18:28 [facility] Fasting? No 07/01/2016 14:54 [facility] Non HDL Cholesterol 178 mg/dl 07/01/2016 18:28 [facility] Comment: Desirable:<130 Borderline:130-159 High: 160-189 Very High: >wg=714 Blood specimen (specimen) BLOOD SPECIMEN / Unknown 07/01/2016 14:54 EDT 07/01/2016 17:43 EDT Jena Munoz MD CHEMISTRY & BLO OD GAS ORDERABLES [facility] [address] [place] [address] * COLONOSCOPY (07/29/2009) Colonoscopy POINT OF CARE Colonoscopy, External POINT OF CARE Anatomical Region Laterality Modality Endoscopy Historical Provider GI PROCEDURE [place] * HEPATITIS C ANTIBODY (08/26/2004 12:21 EST) Hepatitis C Ab Neg TAMMY CHIN 08/26/2004 12:2 1 EST 08/26/2004 17:09 EST Jean Munoz MD CHEMISTRY & BLO OD GAS ORDERABLES [facility] [address] [place] [address] from Last 3 Months or Most Recently Relevant to Health Maintenance Advance Directives For more information, please contact: [phone] Documents on File Type Date Recorded Patient Erp Manager Expl anation Advance Directive 09/30/2011 11:25 COLST/MOLST 01/18/2020 DNR/COLST * Full Code (Latest Code Status on File) Date Activated Date Inactivated Comments 10/11/2017 8:00 10/11/2017 15:21 Question Answer Comments Reason for decision includes: Full code consistent with overall plan of care Who participated in the discussion? Not Discusse d * Full Code Date Activated Date Inactivated Comments 12/27/2016 2:30 01/04/2017 19:26 Question Answer Comments Reason for decision includes: Full code consistent with overall plan of care Who participated in the discussion? Patient * Full Code Date Activated Date Inactivated Comments 02/12/2014 21:58 02/16/2014 16:14 * Full Code Date Activated Date Inactivated Comments 02/26/2013 17:23 03/01/2013 15:05 * Full Code Date Activated Date Inactivated Comments 04/05/2012 21:54 04/11/2012 17:49 Care Teams Defect Cutter Relationship Specialty Start Date End Date Jean Munoz MD [address] [place] [phone] PCP - General 12/31/08 Manny Rizzo MD [address] [place] [phone] 04/20/10 Afia Valle MD [address] [place] [address] [address] [place] [phone] Care Team Radiation Oncology 07/02/21
--- OUTSIDE RECORDS SUMMARY | 2024-06-10 07:03 | XMS_ITS | Encounter Summary ---
Author Organization [facility] Address [address] [place] [address] Care Team Providers Care Flame Cutter Name Role Phone Jean Munoz MD Primary Care Provider Manny Rizzo MD Unavailable Afia Valle MD Unavailable [phone] Reason for Visit * Reason Comments Medications Refill Encounter Details Date Type Department Care Team (Late st Contact Info) Description 05/19/2024 Refill [facility] Medicine [facility] [address] [place] [address] Jean Munoz MD [address] [place] [phone] Medications Refill Social History Tobacco Use [...] place to sleep or slept in a chcf (including now)? Yes 07/15/2023 Interpersonal Safety Answer [...] Telephone Encounter - Armand Chapman RN - 05/22/2024 0837 EDT Requested Prescriptions Pending Prescriptions Disp Refills SUMAtriptan (IMITREX) 100 mg tablet [Pharmacy Med Name: sumatriptan 100 mg tablet] 9 Tablet 2 Sig: TAKE ONE TABLET BY MOUTH DAILY NEEDED FOR MIGRAINE MAY REPEAT IN 2 HOURS IF NEEED (MAX DAILY AMOUNT 2 TABLETS) pregabalin (LYRICA) 300 mg capsule [Pharmacy Med Name: pregabalin 300 mg capsule] 180 Capsule 1 Sig: TAKE ONE CAPSULE BY MOUTH TWICE DAILY *DAILY MAX 2 CAPSULES Pharmacy: [facility] Last Refill Date: Pregabalin: 01/04/24 Sumatriptan: 01/04/24 Last Visit Date: 03/23/24 Next Non-Acute Visit Date Scheduled with Care Team: Yes. 05/23/2024 Prescriptions renewed last week. Has visit tomorrow to discuss medications. Refusing duplicate request. ARMAND CHAPMAN RN 05/22/2024 8:39 documented in this encounter Plan of Treatment Upcoming Encounters Date Type Department Care Team (Late st Contact Info) Description 06/29/2024 14:15 EDT Office Visit [facility] [address] [place], [place] [phone] Jean Munoz MD [address] [place] [phone] documented as of this encounter Visit Diagnoses Diagnosis Migraine without status migrainosus, not intractable, unspecified migraine type Chronic pain syndrome Chronic low back pain Lumbago Chronic use of opiate for therapeutic purpose Pain medication agreement Encounter for long-term (current) use of other medications Screening for osteoporosis- Primary Special screening for osteoporosis Primary narcolepsy without cataplexy Chronic pain syndrome Chronic low back pain Lumbago Chronic use of opiate for therapeutic purpose Pain medication agreement Encounter for long-term (current) use of other medications Screen for colon cancer Special screening for malignant neoplasms, colon documented in this encounter Care Teams Flame Cutter Relationship Specialty Start Date End Date Jean Munoz MD [address] [place] [phone] PCP - General 12/31/08 Manny Rizzo MD [address] [place] [phone] 04/20/10 Afia Valle MD [address] [facility], [address] [place] [address] Care Team Radiation Oncology 07/02/21 documented as of this encounter
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
--- OUTSIDE RECORDS SUMMARY | 2024-06-10 07:03 | XMS_ITS | Encounter Summary ---
Author Organization 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.] place to sleep or slept in a custodial (including now)? Yes 07/15/2023 Interpersonal Safety Answer [...] Dispensed Refills Start Date End Da te promethazine (PHENERGAN) 25 mg tabletIndications:Nausea TAKE ONE TABLET BY MOUTH EVERY 6 HOURS NEEDED FOR NAUSEA 30 Tablet 11 02/28/2024 ondansetron (ZOFRAN) 4 mg tabletIndications:Nausea TAKE ONE TABLET BY MOUTH EVERY 8 HOURS NEEDED FOR NAUSEA 30 Tablet 11 02/28/2024 documented in this encounter Miscellaneous Notes * Telephone Encounter - Caroline Hsieh RN - 02/28/2024 1123 EDT Requested Prescriptions Pending Prescriptions Disp Refills ondansetron (ZOFRAN) 4 mg tablet [Pharmacy Med Name: ondansetron HCl 4 mg tablet] 30 Tablet 11 Sig: TAKE ONE TABLET BY MOUTH EVERY 8 HOURS NEEDED FOR NAUSEA promethazine (PHENERGAN) 25 mg tablet [Pharmacy Med Name: promethazine 25 mg tablet] 30 Tablet 11 Sig: TAKE ONE TABLET BY MOUTH EVERY 6 HOURS NEEDED FOR NAUSEA Pharmacy: [facility] Last Refill Date: 12/23/23, 11/21/23 Last Visit Date: 12/23/23 Next Non-Acute Visit Date Scheduled with Care Team: No. Visit date not found CAROLINE HSIEH RN 02/28/2024 11:23 documented in this encounter Plan of Treatment Upcoming Encounters Date Type Department Care Team (Late st Contact Info) Description 06/29/2024 14:15 EDT Office Visit [facility] Family Medicine [facility] [address] [place] [address] Jean Munoz MD [address] [place] [phone] documented as of this encounter Visit Diagnoses Diagnosis Nausea Nausea alone Screening for osteoporosis- Primary Special screening for osteoporosis Primary narcolepsy without cataplexy Chronic pain syndrome Chronic low back pain Lumbago Chronic use of opiate for therapeutic purpose Pain medication agreement Encounter for long-term (current) use of other medications Screen for colon cancer Special screening for malignant neoplasms, colon documented in this encounter Discontinued Medications Medication Sig Discontinue Reason Start Date End Da te promethazine (PHENERGAN) 25 mg tabletIndications:Ladarius sea Take 1 Tablet by mouth every 6 hours as needed for Nausea. 11/21/2023 02/28/2024 ondansetron (ZOFRAN) 4 mg tabletIndications:Ladarius sea Take 1 Tablet by mouth every 8 hours as needed for Nausea. If promethazine not effective. 12/23/2023 02/28/2024 documented as of this encounter Care Teams Underwater Hunter Trapper Relationship Specialty Start Date End Date Jean Munoz MD [address] [place] [phone] PCP - General 12/31/08 Manny Rizzo MD [address] [place] [phone] 04/20/10 Afia Valle MD [address] [facility] [address] [place] [phone] Care Team Radiation Oncology 07/02/21 documented as of this encounter
--- OUTSIDE RECORDS SUMMARY | 2024-06-10 07:03 | XMS_ITS | Encounter Summary ---
Author Organization [facility] Address [address] [place] [address] Care Team Providers Care Mail Agent Name Role Phone Jean Munoz MD Primary Care Provider Manny Rizzo MD Unavailable Afia Valle MD Unavailable Reason for Visit * Reason Comments Medication Management Encounter Details Date Type Department Care Team (Late st Contact Info) Description 03/23/2024 15:15 EDT Telemedicine [facility] [address] [place] [address] Jean Munoz MD [address] [place] [phone] Chronic pain syndrome (Primary Dx); Chronic low back pain; Chronic use of opiate for therapeutic purpose; Pain medication agreement; Primary narcolepsy without cataplexy; Insomnia, unspecified type; Migraine without status migrainosus, not intractable, unspecified migraine type; Panlobular emphysema (HCC-CMS); Primary cancer of right upper lobe of lung (HCC-CMS) Social History Tobacco Use Types Packs/Day Years [...] place to sleep or slept in a [place] health care facility (including now)? Yes 07/15/2023 Interpersonal Safety Answer Date Record ed How often does anyone, claudia mercedes family, hit, punch or physically hurt you? Never 07/15/2023 How often does anyone, sinaidean mercedes family, insult, scream, curse or threaten to hurt you? Never 07/15/2023 Sex and Gender Information Value Date Recorded Sex Assigned at Not on file Gender Identity Female 08/11/2019 16:07 EST Sexual Orientation Not on file documented as of this encounter Last Filed Vital Signs Vital Sign Reading Time Taken Comments Blood Pressure - - Pulse - - Temperature - - Respiratory Rate - - Oxygen Saturation - - Inhaled Oxygen Concentration - - Weight 65.8 kg (145 lb) 03/23/2024 1521 EDT pt r eported Height - - Body Mass Index 25.09 08/04/2023 1240 EST documented in this encounter Functional Status Functional Status Response [...] Dispensed Refills Start Date End Da te SUMAtriptan (IMITREX) 100 mg tabletIndications:Migra ine without status migrainosus, not intractable, unspecified migraine type Take 1 Tablet by mouth daily as needed for Migraine. Take at onset of migraine. May repeat in 2 hours if needed. Daily max: 2 tablets. 9 Tablet 2 03/23/2024 HYDROcodone-acetaminoph en (NORCO) 7.5-325 mg per tabletIndications:Chron ic pain syndrome,Chronic low back pain,Chronic use of opiate for therapeutic purpose,Pain medication agreement Take 1 Tablet by mouth every 6 hours for 28 days. For chronic pain. Daily Max: 4 Tablets 112 Tablet 05/18/2024 06/15/2024 HYDROcodone-acetaminoph en (NORCO) 7.5-325 mg per tabletIndications:Chron ic pain syndrome,Chronic low back pain,Chronic use of opiate for therapeutic purpose,Pain medication agreement Take 1 Tablet by mouth every 6 hours for 28 days. For chronic pain. Daily Max: 4 Tablets 112 Tablet 04/20/2024 HYDROcodone-acetaminoph en (NORCO) 7.5-325 mg per tabletIndications:Chron ic pain syndrome,Chronic low back pain,Chronic use of opiate for therapeutic purpose,Pain medication agreement Take 1 Tablet by mouth every 6 hours for 28 days. For chronic pain. Daily Max: 4 Tablets 112 Tablet 03/23/2024 methylphenidate HCl (RITALIN;METHYLIN) 10 mg tabletIndications:Prima ry narcolepsy without cataplexy Take 1 Tablet by mouth daily for 28 days. For narcolepsy. Daily Max: 10 mg 28 Tablet 05/18/2024 06/15/2024 methylphenidate HCl (RITALIN;METHYLIN) 10 mg tabletIndications:Prima ry narcolepsy without cataplexy Take 1 Tablet by mouth daily for 28 days. For narcolepsy. Daily Max: 10 mg 28 Tablet 04/20/2024 methylphenidate HCl (RITALIN;METHYLIN) 10 mg tabletIndications:Prima ry narcolepsy without cataplexy Take 1 Tablet by mouth daily for 28 days. For nacolepsy Daily Max: 10 mg 28 Tablet 03/23/2024 methylphenidate HCl (RITALIN;METHYLIN) 20 mg tabletIndications:Prima ry narcolepsy without cataplexy Take 2 Tablets by mouth daily for 28 days. For narcolepsy. Daily Max: 40 mg 56 Tablet 05/18/2024 06/15/2024 methylphenidate HCl (RITALIN;METHYLIN) 20 mg tabletIndications:Prima ry narcolepsy without cataplexy Take 2 Tablets by mouth daily for 28 days. For narcolepsy. Daily Max: 40 mg 56 Tablet 04/20/2024 methylphenidate HCl (RITALIN;METHYLIN) 20 mg tabletIndications:Prima ry narcolepsy without cataplexy Take 1 Tablet by mouth 2 times daily for 28 days. Daily Max: 40 mg 56 Tablet 03/23/2024 documented in this encounter Progress Notes * Satinder Montero LPN - 03/23/2024 1515 EDT The [place] [facility] Monitoring System query has been completed. Zolpidem 5 mg: Filled: 03/10/24 Quantity: 28 tabs for 28 days Hydrocodone-Acetaminophen 7.5-325 mg: Filled: 02/24/24 Quantity: 112 tabs for 28 days Methylphenidate 20 mg: Filled: 02/24/24 Quantity: 56 tabs for 28 days Methylphenidate 10 mg: Filled: 02/24/24 Quantity: 28 tabs for 28 days Zolpidem 5 mg: Filled: 02/16/24 Quantity: 28 tabs for 28 days SATINDER MONTERO LPN * Jean Munoz MD - 03/23/2024 7655 EDT Primary Care Video Visit Assessment & Plan Diagnoses and all orders for this visit: Chronic pain syndrome Chronic low back pain Chronic use of opiate for therapeutic purpose Pain medication agreement - HYDROcodone-acetaminophen (NORCO) 7.5-325 mg per tablet - HYDROcodone-acetaminophen (NORCO) 7.5-325 mg per tablet - HYDROcodone-acetaminophen (NORCO) 7.5-325 mg per tablet Stable, although she has not had in person follow-up here recently and has not had urine testing recently. She plans to follow-up with new provider in [facility]. Primary narcolepsy without cataplexy - methylphenidate HCl (RITALIN;METHYLIN) 20 mg tablet - methylphenidate HCl (RITALIN;METHYLIN) 20 mg tablet - methylphenidate HCl (RITALIN;METHYLIN) 20 mg tablet - methylphenidate HCl (RITALIN;METHYLIN) 10 mg tablet - methylphenidate HCl (RITALIN;METHYLIN) 10 mg tablet - methylphenidate HCl (RITALIN;METHYLIN) 10 mg tablet Insomnia, unspecified type Stable on zolpidem at bedtime. Migraine without status migrainosus, not intractable, unspecified migraine type - SUMAtriptan (IMITREX) 100 mg tablet Panlobular emphysema (HCC-CMS) Stable on Spiriva, Symbicort. Albuterol as needed. Follow-up per pulmonology. Primary cancer of right upper lobe of lung (HCC-CMS) Follow-up per radiation oncology. Return in about 11 weeks (around 06/08/2024) for ROV med check phone/video. Can cancel if she has anappointment with her new provider before then. [facility] Internal [facility] Patient education was direct. Barriers were assessed and addressed as needed. I spent a total of 25 minutes on the date of this encounter meeting with the patient and reviewing documentation/coordinating care as described in the above note. Unless otherwise noted, no procedures were performed at the time of the visit. Kalie Hutchins is a 63 y.o. female presenting with Medication Management HPI Layla is scheduled for follow-up video visit. On medications for chronic pain, narcolepsy, insomnia. Has new provider in [place] and will follow up with them soon. Data reviewed this visit: problem list/past medical history, current medications, allergies, socialhistory, last visit note, and health maintenance items ROS - See HPI TELEMEDICINE VIDEO VISIT Today's visit was provided through telemedicine video conferencing: The location of the patient : Home (where patient lives) in [place] The location of the provider: Clinic Exam Room in [place] The following staff and their role did participate in today's encounter visit: Jean Munoz MD The concept of ???Telemedicine?? has been described to the patient. Patient has been informed of the anticipated benefits and possible risks. Patient understands the information provided regarding telemedicine, has had the opportunity to ask questions about this information, and all questions havebeen answered to patient???s satisfaction. Patient consents for the use of telemedicine in his/her medical care and authorizes the transmission of any relevant medical information to providers and their staff involved in patient???s medical or mental health care. Objective Wt 65.8 kg (145 lb) Comment: pt reported LMP 01/11/1987 BMI 25.09 kg/m?? Physical Exam on video she is alert, cooperative. * Elisabeth MarshallthiBIJU frausto - 03/23/2024 1515 EDT Behavioral Health Screen PHQ-2 Little interest or pleasure in doing things?: Several days Feeling down, depressed, or hopeless?: More than half the days PHQ-2 SUBTOTAL: 3 PHQ-9 Trouble falling or staying asleep, or sleeping too much?: More than half the days Feeling tired or having little energy?: Several days Poor appetite or overeating?: Several days Feeling bad about yourself - or that you are a failure or have let yourself or your family down?: Nearly every day Trouble concentrating on things, such as reading the newspaper or watching TV?: More than half the days Moving or speaking so slowly that other people have noticed? Or the opposite - being so fidgety or restless that you have been moving around a lot more than usual?: Several days Thoughts that you would be better off , or of hurting yourself in some way?: Not at all How difficult have these problems made it for you to do your work, take care of things at home, or get along with other people?: Not difficult at all PHQ-9 TOTAL: (!) 13 PHQ-9 Score Details: Moderate Depression HEYDI-7 Feeling nervous, anxious, or on edge: Several days Not being able to stop or control worrying: Several days Worrying too much about different things: Several days Trouble relaxing: Several days Being so restless that it is hard to sit still: Several days Becoming easily annoyed or irritable: Several days Feeling afraid as if something awful might happen: Several days HEYDI-7 Total Score: 7; HEYDI-2 Subtotal: 2 HEYDI-7 Score Interpretation: Mild Anxiety SASQ AUDIT-10 Prescription Misuse DAST-10 The concept of ???Telemedicine?? has been described to the patient.? Patient has been informed of the anticipated benefits and possible risks.? Patient understands the information provided regardingtelemedicine, has had the opportunity to ask questions about this information, and all questions have been answered to patient???s satisfaction. Patient consents for the use of telemedicine in his/her medical care and authorizes the transmission of any relevant medical information to providers and their staff involved in patient???s medical or mental health care. Patient understands that they maybe responsible for copays, deductible or coinsurance for this service. documented in this encounter Plan of Treatment Upcoming Encounters Date Type Department Care Team (Late st Contact Info) Description 06/29/2024 14:15 EDT Office Visit [facility] [address] [place] [address] Jaen Munoz MD [address] [place] [phone] documented as of this encounter Visit Diagnoses Diagnosis Chronic pain syndrome- Primary Chronic low back pain Lumbago Chronic use of opiate for therapeutic purpose Pain medication agreement Encounter for long-term (current) use of other medications Primary narcolepsy without cataplexy Insomnia, unspecified type Migraine without status migrainosus, not intractable, unspecified migraine type Panlobular emphysema (HCC-CMS) Other emphysema Primary cancer of right upper lobe of lung (HCC-CMS) Screening for osteoporosis- Primary Special screening for osteoporosis Primary narcolepsy without cataplexy Chronic pain syndrome Chronic low back pain Lumbago Chronic use of opiate for therapeutic purpose Pain medication agreement Encounter for long-term (current) use of other medications Screen for colon cancer Special screening for malignant neoplasms, colon documented in this encounter Discontinued Medications Medication Sig Discontinue Reason Start Date End Da te methylphenidate HCl (RITALIN;METHYLIN) 20 mg tabletIndications:Prima ry narcolepsy without cataplexy Take 1 Tablet by mouth 2 times daily for 28 days. Daily Max: 40 mg Reorder 12/30/2023 03/07/2024 methylphenidate HCl (RITALIN;METHYLIN) 20 mg tabletIndications:Prima ry narcolepsy without cataplexy Take 2 Tablets by mouth daily for 28 days. For narcolepsy. Daily Max: 40 mg Reorder 01/27/2024 03/07/2024 methylphenidate HCl (RITALIN;METHYLIN) 20 mg tabletIndications:Prima ry narcolepsy without cataplexy Take 2 Tablets by mouth daily for 28 days. For narcolepsy. Daily Max: 40 mg Reorder 02/24/2024 03/07/2024 methylphenidate HCl (RITALIN;METHYLIN) 10 mg tabletIndications:Prima ry narcolepsy without cataplexy Take 1 Tablet by mouth daily for 28 days. For nacolepsy Daily Max: 10 mg Reorder 12/30/2023 03/07/2024 methylphenidate HCl (RITALIN;METHYLIN) 10 mg tabletIndications:Prima ry narcolepsy without cataplexy Take 1 Tablet by mouth daily for 28 days. For narcolepsy. Daily Max: 10 mg Reorder 01/27/2024 03/07/2024 methylphenidate HCl (RITALIN;METHYLIN) 10 mg tabletIndications:Prima ry narcolepsy without cataplexy Take 1 Tablet by mouth daily for 28 days. For narcolepsy. Daily Max: 10 mg Reorder 02/24/2024 03/07/2024 HYDROcodone-acetaminoph en (NORCO) 7.5-325 mg per tabletIndications:Chron ic pain syndrome,Chronic low back pain,Chronic use of opiate for therapeutic purpose,Pain medication agreement Take 1 Tablet by mouth every 6 hours for 28 days. For chronic pain. Daily Max: 4 Tablets Reorder 12/30/2023 03/07/2024 HYDROcodone-acetaminoph en (NORCO) 7.5-325 mg per tabletIndications:Chron ic pain syndrome,Chronic low back pain,Chronic use of opiate for therapeutic purpose,Pain medication agreement Take 1 Tablet by mouth every 6 hours for 28 days. For chronic pain. Daily Max: 4 Tablets Reorder 01/27/2024 03/07/2024 HYDROcodone-acetaminoph en (NORCO) 7.5-325 mg per tabletIndications:Chron ic pain syndrome,Chronic low back pain,Chronic use of opiate for therapeutic purpose,Pain medication agreement Take 1 Tablet by mouth every 6 hours for 28 days. For chronic pain. Daily Max: 4 Tablets Reorder 02/24/2024 03/07/2024 SUMAtriptan (IMITREX) 100 mg tabletIndications:Migra ine without status migrainosus, not intractable, unspecified migraine type Take 1 Tablet by mouth daily as needed for Migraine. Take at onset of migraine. May repeat in 2 hours if needed. Daily max: 2 tablets. Reorder 12/23/2023 03/23/2024 documented as of this encounter Care Teams Mail Agent Relationship Specialty Start Date End Date Jean Munoz MD [address] [place] [phone] PCP - General 12/31/08 Manny Rizzo MD [address] [place] [phone] 04/20/10 Afia Valle MD [address] [place] [address] [address] [place] [phone] MD Care Team Radiation Oncology 07/02/21 documented as of this encounter
--- OUTSIDE RECORDS SUMMARY | 2024-06-10 07:03 | XMS_ITS | Encounter Summary ---
Author Organization [facility] Address [address] [place] [address] Care Team Providers Care Lace Burn Out Tender Name Role Phone Jean Munoz MD Primary Care Provider Manny Rizzo MD Unavailable Afia Valle MD Unavailable [phone] Reason for Visit * Reason Comments Medications Refill Encounter Details Date Type Department Care Team (Late st Contact Info) Description 05/24/2024 Refill [facility] [address] [place] [address] Jean Munoz MD [address] [place] [phone] Medications Refill Social History Tobacco Use [...] Record ed How often does anyone, claudia lnog family, hit, punch or physically hurt you? [...] Dispensed Refills Start Date End Da te methocarbamoL (ROBAXIN) 500 mg tabletIndications:Chronic pain syndrome TAKE TWO TABLETS BY MOUTH DAILY AT BEDTIME 180 Tablet 3 05/25/2024 documented in this encounter Miscellaneous Notes * Telephone Encounter - Armand Chapman RN - 05/25/2024 1013 EDT Requested Prescriptions Pending Prescriptions Disp Refills methocarbamoL (ROBAXIN) 500 mg tablet [Pharmacy Med Name: methocarbamol 500 mg tablet] 180 Tablet 11 Sig: TAKE TWO TABLETS BY MOUTH DAILY AT 9PM AT BEDTIME Pharmacy: [facility] Last Refill Date: 11/21/23 Last Visit Date: 05/23/24 , 03/23/24 Next Non-Acute Visit Date Scheduled with Care Team: No. ARMAND CHAPMAN RN 05/25/2024 10:13 documented in this encounter Plan of Treatment Upcoming Encounters Date Type Department Care Team (Late st Contact Info) Description 06/29/2024 14:[address] [facility] Family Medicine [facility] [address] [place] [address] Jean Munoz MD [address] [place] [phone] documented as of this encounter Visit Diagnoses Diagnosis Chronic pain syndrome- Primary Screening for osteoporosis- Primary Special screening [...] Discontinue Reason Start Date End Da te methocarbamoL (ROBAXIN) 500 mg tabletIndications:Chroni c pain syndrome TAKE TWO TABLETS BY MOUTH DAILY AT BEDTIME 11/21/2023 05/25/2024 documented as of this encounter Care Teams Lace Burn Out Tender Relationship Specialty Start Date End Date Jean Munoz MD [address] [place] [phone] PCP - General 12/31/08 Manny Rizzo MD [address] [place] [phone] 04/20/10 Afia Valle MD [address] [facility], [address] [place] [phone] MD Care Team Radiation Oncology 07/02/21 documented as of this encounter
--- OUTSIDE RECORDS SUMMARY | 2024-06-10 07:03 | XMS_ITS | Encounter Summary ---
Author Organization [facility] Address [address] [place] [address] Care Team Providers Care Tumor Registrar Name Role Phone Jean Munoz MD Primary Care Provider Manny Rizzo MD Unavailable Afia aVlle MD Unavailable [phone] Reason for Visit * Reason Comments Medications Refill Encounter Details Date Type Department Care Team (Late st Contact Info) Description 03/29/2024 Refill [place] [facility] [address] [place] [address] Jean Munoz MD [address] [place] [phone] Medications Refill Social History Tobacco Use [...] place to sleep or slept in a senior living (including now)? Yes 07/15/2023 Interpersonal Safety Answer [...] Dispensed Refills Start Date End Da te levalbuterol (XOPENEX HFA) 45 mcg/actuation inhalerIndications:Panlobu lar emphysema (HCC-CMS) INHALE TWO PUFFS BY MOUTH INTO LUNGS EVERY 4 HOURS NEEDED FOR WHEEZING/SHORTNESS OF BREATH DIRECTED 15 g 5 03/30/2024 documented in this encounter Miscellaneous Notes * Telephone Encounter - Belle Chapman RN - 03/30/2024 1106 EDT Requested Prescriptions Pending Prescriptions Disp Refills levalbuterol (XOPENEX HFA) 45 mcg/actuation inhaler [Pharmacy Med Name: levalbuterol HFA 45 mcg/actuation aerosol inhaler] 15 g 11 Sig: INHALE TWO PUFFS BY MOUTH INTO LUNGS EVERY 4 HOURS NEEDED FOR WHEEZING/SHORTNESS OF BREATH DIRECTED Pharmacy: [facility] Last Refill Date: 11/19/23 Last Visit Date: 03/23/24 Next Non-Acute Visit Date Scheduled with Care Team: NoYordy CHAPMAN RN 03/30/2024 11:06 documented in this encounter Plan of Treatment Upcoming Encounters Date Type Department Care Team (Late st Contact Info) Description 06/29/2024 14:15 EDT Office Visit [place] [facility] [address] [place], [place] [phone] Jean Munoz MD [address] [place] [phone] documented as of this encounter Visit Diagnoses Diagnosis Panlobular emphysema ([facility]-CMS)- Primary Other emphysema Screening for osteoporosis- Primary Special screening for osteoporosis Primary narcolepsy without cataplexy Chronic pain syndrome Chronic low back pain Lumbago Chronic use of opiate for therapeutic purpose Pain medication agreement Encounter for long-term (current) use of other medications Screen for colon cancer Special screening for malignant neoplasms, colon documented in this encounter Discontinued Medications Medication Sig Discontinue Reason Start Date End Da te levalbuterol (XOPENEX HFA) 45 mcg/actuation inhalerIndications:Panl obular emphysema (HCC-CMS) INHALE TWO PUFFS BY MOUTH EVERY 4 HOURS NEEDED FOR WHEEZING/SHORTNESS OF BREATH DIRECTED 11/19/2023 03/30/2024 documented as of this encounter Care Teams Tumor Registrar Relationship Specialty Start Date End Date Jean Munoz MD [address] [place] [phone] PCP - General 12/31/08 [place] [address] [place] [phone] 04/20/10 Afia Valle MD [address] [facility], [address] [place] [phone] Care Team Radiation Oncology 07/02/21 documented as of this encounter
--- OUTSIDE RECORDS SUMMARY | 2024-06-10 07:03 | XMS_ITS | Encounter Summary ---
Author Organization [facility] Address [address] [place] [address] Care Team Providers Care Internal Control Manager Name Role Phone Jean Munoz MD Primary Care Provider Manny Rizzo MD Unavailable Afia Valle MD Unavailable [phone] Reason for Visit * Reason Onset Date Comments Medication Management 05/29/2024 Returning Call 05/29/2024 Encounter Details Date Type Department Care Team (Late st Contact Info) Description 05/29/2024 Telephone [facility] [address] [place] [address] Jean Munoz MD [address] [place] [phone] Medication Management; Returning Call Social History Tobacco Use Types Packs/Day Years [...] place to sleep or slept in a care home (including now)? Yes 07/15/2023 Interpersonal Safety Answer [...] encounter Miscellaneous Notes * Telephone Encounter - Shawn Miels - 06/06/2024 1109 EDT Patient called in to check to see if she was still on the cancellation list for an appt. Operations Section Manager informed patient that she was still on the wait list. Patient also wanted to know could Dr. Munoz call in a 2 week script for her medications. Operations Section Manager relayed RN message to patient that Dr. Munoz isnot calling in her medications until she is seen in office. Patient verbalized understanding. * Telephone Encounter - Zee Dunn RN - 05/30/2024 1640 EDT RN called this patient. [facility] Dr. Munoz is not willing to fill this patient's controlled medications until this pt has a visitand reestablishes care at our practice. ZEE DUNN RN 05/30/2024 16:42 * Telephone Encounter - Zee Dunn RN - 05/30/2024 1529 EDT RN called and spoke with this patient She states that she has decided to stay with [facility] ZEE DUNN RN 05/30/2024 15:31 * Telephone Encounter - Zee Dunn RN - 05/30/2024 1419 EDT RN called and spoke with this patient Pt is going to be seeing a new provider in [place] but she states that she has not had her initial appointment yet. ZEE DUNN RN 05/30/2024 14:21 * Telephone Encounter - Shawn Miles - 05/30/2024 1344 EDT Patient returning call to RN. Warm transfer initiated. * Telephone Encounter - Zee Dunn RN - 05/30/2024 1026 EDT RN called this patient. [facility] ZEE DUNN RN 05/30/2024 10:27 * Telephone Encounter - Zee Dunn RN - 05/30/2024 0906 EDT Images from the original note were not included. VPMS: * Telephone Encounter - Sundar Meadows - 05/29/2024 1313 EDT Medication(s) Requested Ritalin 10mg and 20mg Hydrocodone 7.5-325mg Pharmacy [facility] Next Visit Date 06/29/2024 Last Visit Date 07/15/2023 Out of Medication? No scheduled next available on 06/29/24. Patient is concerned about running out prior to appointment. SUNDAR MEADOWS 05/29/2024 13:14 documented in this encounter Plan of Treatment Upcoming Encounters Date Type Department Care Team (Late st Contact Info) Description 06/29/2024 14:15 EDT Office Visit [facility] [address] [place], [place] [phone] Jean Munoz MD [address] [place] [phone] documented as of this encounter Visit Diagnoses Diagnosis Primary narcolepsy without cataplexy Chronic pain syndrome [...] colon documented in this encounter Care Teams Internal Control Manager Relationship Specialty Start Date End Date Jean Munoz MD [address] [place] [phone] PCP - General 12/31/08 Manny Rizzo MD [address] [place] [phone] 04/20/10 Afia Valle MD [address] [place] [address] [address] [place] [phone] Care Team Radiation Oncology 07/02/21 documented as of this encounter
--- OUTSIDE RECORDS SUMMARY | 2024-06-10 07:03 | XMS_ITS | Encounter Summary ---
Author Organization [facility] Address [address] [place] [address] Care Team Providers Care Early Intervention Specialist Name Role Phone Jean Munoz MD Primary Care Provider Manny Rizzo MD Unavailable Afia Valle MD Unavailable Reason for Visit * Reason Comments Depression Anxiety Encounter Details Date Type Department Care Team (Late st Contact Info) Description 01/24/2024 11:30 EDT Telemedicine [facility] [address] [place] [address] Jesi Leong, [facility] [address] [place] [address] Moderate episode of recurrent major depressive disorder (HCC-CMS) (Primary Dx); Anxiety Social History Tobacco Use Types Packs/Day Years [...] Yes 05/26/2018 documented as of this encounter Progress Notes * Jesi Leong, [facility] - 01/24/2024 1130 EDT Images from the original note were not included. Primary Care Mental Health Integration Collaborative Care Mental Health Clinician Encounter 01/24/2024 Time Spent: 24 minutes in Direct and Indirect Collaborative Care Start time: 11:30am End time: 11:54am Encounter Type: Telephone Encounter Contact: patient Collaborative Care Activities: Monitoring/completion of validated rating scales and Care managementactivities Summary of Care Provided: Liset reports mood has been better. States things are going well. Saw black bear on their property. Got washer & dryer, catching up on wash over a year worth of clothes. Verbally completed PHQ/HEYDI - concentration is difficult per Liset today (scores trouble concentrating as nearly everyday, when four weeks ago was only some of the time). States a lot she wants to get done. Discussed single tasking. Reflected on PHQ/HEYDI scores - ongoing depressive and anxiety symptoms; Liset reflects feeling these will be ongoing. States she's very confident in her plan to reach out to a community based clinician in the future. Did not yet read this bid writer's message from 12/26 where she is provided two warm lead clinicians [facility] (Brie Corado and Alexi Shore). States don't want to go backward. Introduced Liset also to [employer] website for searching, looked today and there are fourteen clinicians listed who take Medicare & treat anxiety. Liset is aware we must wrap up this episode of care. Reflected on knowing one another over the past two years (in context of this bid writer's former role). Liset agrees to let PCP know if she feels she's regressing and request referral for an additional episode of care with [facility] if she's not been able to connect to a community clinician. Plan: Closing this episode of care with [facility]. Validated Behavioral Health Measures 08/03/2023 13:35 08/24/2023 8:50 08/24/2023 8:51 08/24/2023 8:52 08/24/2023 8:54 12/27/2023 11:33 01/24/2024 11:32 Risk Totals: MFQ, PHQ-9A, PHQ-2/PHQ-9, and HEYDI-7 PHQ-2 3 3 2 2 3 5 PHQ-9 16 11 8 10 12 12 PHQ-9 Interpretation Moderately Severe Depression Moderate Depression Mild Depression Moderate Depression Moderate Depression Moderate Depression HEYDI-2 4 2 5 4 HEYDI-7 15 9 16 17 HEYDI-7 Interpretation Severe Anxiety Mild Anxiety Severe Anxiety Severe Anxiety [facility] Collaborative Care Mental Health Clinician Post-Treatment Wellness Plan Problems can occur throughout our lives. The purpose of a relapse prevention plan is to help you remember what has helped when you've faced difficult problems in the past. In doing so, you can use this information to help guide you in the future. Appointment took place via [employer]. What was helpful about our work together? You've helped me sort through a lot my bullshit Settling my mind, all the stuff from my ex- What is important to remember? Everything What are helpful activities that you want to continue? A lot of the exercises that you sent me To take my mind off things, like my crocheting All the other good little tid bits What are your own personal warning signs that might indicate a concern or problem? Not sleeping and appetite Who can you reach out to for support? Will, partner. My daughter, Stacey. In the next year, what events or experiences may be difficult to handle? Nothing, right now. Everything is going good How will you cope with these situations and what steps will you take? N/A documented in this encounter Plan of Treatment Upcoming Encounters Date Type Department Care Team (Late st Contact Info) Description 06/29/2024 14:15 EDT Office Visit [facility] [address] [place] [address] Jean Munoz MD [address] [place] [address] documented as of this encounter Visit Diagnoses Diagnosis Moderate episode of recurrent major depressive disorder (HCC-CMS)- Primary Anxiety Anxiety state, unspecified Screening for osteoporosis- Primary Special screening for osteoporosis Primary narcolepsy without cataplexy Chronic pain syndrome Chronic low back pain Lumbago Chronic use of opiate for therapeutic purpose Pain medication agreement Encounter for long-term (current) use of other medications Screen for colon cancer Special screening for malignant neoplasms, colon documented in this encounter Care Teams Early Intervention Specialist Relationship Specialty Start Date End Date Jean Munoz MD [address] [place] [phone] PCP - General 12/31/08 [place] [address] [place] [phone] 04/20/10 Afia Valle MD [address] [facility] [address] [place] [phone] Care Team Radiation Oncology 07/02/21 documented as of this encounter
--- OUTSIDE RECORDS SUMMARY | 2024-06-10 07:04 | XMS_ITS | Encounter Summary ---
Author Organization [facility] Address [address] [place] [address] Care Team Providers Care Pickle Pumper Name Role Phone Jean Munoz MD Primary Care Provider Manny Rizzo MD Unavailable Afai Valle MD Unavailable Jesi Leong Unavailable [phone] Reason for Referral * Radiology Services (Routine/Next Available) - Authorization Not Required Specialty Diagnoses / Procedures Referred By Alex weldon Referred To Contact Diagnoses Malignant neoplasm of upper lobe, right bronchus or lung (HCC-CMS) Procedures CT CHEST WO CONTRAST CHG DIAGNOSTIC COMPUTED TOMOGRAPHY THORAX W/O CNTRST Afia Valle MD [address] [facility] [address] [place] [address] [facility] Referral ID Status Reason Start Date Expiration Date Visits Requested Visits Authorized [id number] Authorization Not Required 01/19/2023 1 1 Reason for Visit * Radiology Services (Routine/Next Available) - Authorization Not Required Specialty Diagnoses / Procedures Referred By Contac t Referred To Contact Diagnoses Malignant neoplasm of upper lobe, right bronchus or lung (HCC-CMS) Procedures CT CHEST WO CONTRAST CHG DIAGNOSTIC COMPUTED TOMOGRAPHY THORAX W/O CNTRST Afia Valle MD [address] [facility], [address] [place] [address] [facility] Referral ID Status Reason Start Date Expiration Date Visits Requested Visits Authorized [id number] Authorization Not Required 01/19/2023 1 1 Encounter Details Date Type Department Care Team (Latest Contact Info) Description 08/25/2023 11:18 EST - 08/25/2023 23:59 EST Hospital Encounter Medical Center Radiology CT - [facility] [address] [place] [address] Malignant neoplasm of upper lobe, right bronchus or lung (HCC-CMS) Discharge Disposition: Home or Self Care Social History Tobacco Use Types Packs/Day Years [...] 07/15/2023 PHQ-2 Answer Date Recorded PHQ-2 SUBTOTAL 2 08/24/2023 Hunger Vital Sign Answer Date Recorded Within [...] Yes 05/26/2018 documented as of this encounter Medications at Time of Discharge Medication Sig Dispensed Refills Start Date End Date benzonatate (TESSALON) 100 mg capsule Take 1 Capsule by mouth 3 times daily as needed for Cough. 80 Capsule 3 01/19/2023 docusate sodium (COLACE) 100 mg capsule Take 1 Capsule by mouth 2 times daily as needed for Constipation. 09/24/2010 busPIRone (BUSPAR) 15 mg tabletIndications:Anxi ety Take 1 Tablet by mouth 3 times daily. 270 Tablet 3 03/25/2023 10/06/2023 cycloSPORINE (RESTASIS) 0.05 % ophthalmic emulsion Place 1 drop into both eyes 2 times daily. 1 vial 11/11/2018 10/06/2023 doxycycline (VIBRA-TABS) 100 mg tabletIndications:Elaine cea TAKE 1 TABLET BY MOUTH EVERY DAY for rosacea 90 Tablet 3 11/09/2022 10/06/2023 DULoxetine (CYMBALTA) 60 mg capsuleIndications:Anx iety Take 2 Capsules by mouth daily. For depression, anxiety 180 Each 3 03/25/2023 10/06/2023 fexofenadine (JUDITH) 180 mg tabletIndications:Nakul rgic rhinitis, unspecified seasonality, unspecified trigger TAKE 1 TABLET BY MOUTH EVERY DAY for allergies 90 Tablet 4 07/15/2023 10/06/2023 HYDROcodone-acetaminop hen (NORCO) 7.5-325 mg per tabletIndications:Bill Clerk majo pain syndrome,Chronic low back pain,Chronic use of opiate for therapeutic purpose,Pain medication agreement Take 1 Tablet by mouth every 6 hours for 28 days. For chronic pain. Daily Max: 4 Tablets 112 Tablet 09/09/2023 09/29/2023 HYDROcodone-acetaminop hen (NORCO) 7.5-325 mg per tabletIndications:Bill Clerk majo pain syndrome,Chronic low back pain,Chronic use of opiate for therapeutic purpose,Pain medication agreement Take 1 Tablet by mouth every 6 hours for 28 days. For chronic pain. Daily Max: 4 Tablets 112 Tablet 08/12/2023 09/29/2023 HYDROcodone-acetaminop hen (NORCO) 7.5-325 mg per tabletIndications:Bill Clerk majo pain syndrome,Chronic low back pain,Chronic use of opiate for therapeutic purpose,Pain medication agreement Take 1 Tablet by mouth every 6 hours for 28 days. For chronic pain. Daily Max: 4 Tablets 112 Tablet 07/15/2023 09/29/2023 hydroxypropyl methylcellulose (ISOPTO TEARS) 0.5 % ophthalmic solution Place 1 Drop into both eyes 5 times daily. 12/10/2010 10/06/2023 ipratropium-albuteroL (DUONEB) 0.5 mg-3 mg(2.5 mg base)/3 mL nebulizer solutionIndications:Pa nlobular emphysema (HCC-CMS) Take 3 mL by nebulization every 4 hours as needed for Wheezing. 3 mL 3 11/23/2022 10/06/2023 lancets Brand: One Touch Delica, check blood glucose twice daily. 100 Each 3 11/06/2022 10/06/2023 levalbuterol (XOPENEX HFA) 45 mcg/actuation inhalerIndications:Jarquin lobular emphysema (HCC-CMS) INHALE TWO PUFFS BY MOUTH EVERY 4 HOURS NEEDED FOR WHEEZING/SHORTNESS OF BREATH DIRECTED 15 g 3 06/29/2023 10/06/2023 lidocaine (XYLOCAINE) 2 % solution 5 ML, mixed with 5 ml mylanta or maalox, swish and swallow for swallowing pain. 100 mL 2 01/19/2023 10/06/2023 methocarbamoL (ROBAXIN) 500 mg tabletIndications:Bill Clerk majo pain syndrome TAKE TWO TABLETS BY MOUTH DAILY AT BEDTIME 180 Tablet 1 07/22/2023 10/06/2023 methylphenidate HCl (RITALIN;METHYLIN) 10 mg tabletIndications:Prim sheila narcolepsy without cataplexy Take 1 Tablet by mouth daily for 28 days. For narcolepsy. Daily Max: 10 mg 28 Tablet 09/09/2023 09/29/2023 methylphenidate HCl (RITALIN;METHYLIN) 10 mg tabletIndications:Prim sheila narcolepsy without cataplexy Take 1 Tablet by mouth daily for 28 days. For narcolepsy. Daily Max: 10 mg 28 Tablet 08/12/2023 09/29/2023 methylphenidate HCl (RITALIN;METHYLIN) 10 mg tabletIndications:Prim sheila narcolepsy without cataplexy Take 1 Tablet by mouth daily for 28 days. For nacolepsy Daily Max: 10 mg 28 Tablet 07/15/2023 09/29/2023 methylphenidate HCl (RITALIN;METHYLIN) 20 mg tabletIndications:Prim sheila narcolepsy without cataplexy Take 2 Tablets by mouth daily for 28 days. For narcolepsy. Daily Max: 40 mg 56 Tablet 09/09/2023 09/29/2023 methylphenidate HCl (RITALIN;METHYLIN) 20 mg tabletIndications:Prim sheila narcolepsy without cataplexy Take 2 Tablets by mouth daily for 28 days. For narcolepsy. Daily Max: 40 mg 56 Tablet 08/12/2023 09/29/2023 methylphenidate HCl (RITALIN;METHYLIN) 20 mg tabletIndications:Prim sheila narcolepsy without cataplexy Take 1 Tablet by mouth 2 times daily for 28 days. Daily Max: 40 mg 56 Tablet 07/15/2023 09/29/2023 montelukast (SINGULAIR) 10 mg tabletIndications:Nakul rgic rhinitis, unspecified seasonality, unspecified trigger TAKE 1 TABLET BY MOUTH EVERY DAY for allergies 90 Tablet 3 11/26/2021 10/06/2023 montelukast (SINGULAIR) 10 mg tabletIndications:Nakul rgic rhinitis, unspecified seasonality, unspecified trigger Take 1 Tab by mouth daily. For allergies 90 Tab 3 11/07/2020 09/23/2023 omeprazole (PRILOSEC) 40 mg capsuleIndications:Gas troesophageal reflux disease, esophagitis presence not specified Take 1 Cap by mouth daily. 90 Cap 3 08/30/2019 10/06/2023 ondansetron (ZOFRAN) 4 mg tabletIndications:Naus ea Take 1 Tablet by mouth every 8 hours as needed for Nausea. 30 Tablet 2 06/15/2023 10/06/2023 ONETOUCH DELICA PLUS LANCET 33 gauge misc 07/10/2021 024 ONETOUCH ULTRA TEST test stripsIndications:Impa ired glucose tolerance TEST 2 TIMES DAILY. 200 Each 3 11/06/2022 10/06/2023 pregabalin (LYRICA) 300 mg capsuleIndications:Chr onic pain syndrome,Chronic low back pain,Chronic use of opiate for therapeutic purpose,Pain medication agreement TAKE ONE CAPSULE BY MOUTH TWICE DAILY *daily max 2 capsules 180 Capsule 1 03/25/2023 10/06/2023 promethazine (PHENERGAN) 25 mg tabletIndications:Naus ea Take 1 Tablet by mouth every 6 hours as needed for Nausea. 30 Tablet 2 03/29/2023 10/06/2023 rOPINIRole (REQUIP) 2 mg tabletIndications:Rest less legs syndrome TAKE 1 TABLET BY MOUTH NIGHTLY AT BEDTIME 90 Tablet 3 01/04/2023 10/06/2023 SUMAtriptan (IMITREX) 100 mg tabletIndications:Migr lu without status migrainosus, not intractable, unspecified migraine type TAKE 1 TABLET BY MOUTH AT ONSET OF MIGRAINE 9 Tablet 2 07/22/2023 10/06/2023 SYMBICORT 80-4.5 mcg/actuation HFA aerosol inhaler inhaler Inhale 2 Puffs as directed 2 times daily. Use with spacer and rinse mouth after use. 10.2 g 11 08/23/2023 10/06/2023 tiotropium bromide (SPIRIVA RESPIMAT) 2.5 mcg/actuation inhalation mist Inhale 2 Puffs as directed daily. 4 g 11 08/23/2023 10/06/2023 zolpidem (AMBIEN) 5 mg tabletIndications:Inso mnia, unspecified type Take 1 Tablet by mouth at bedtime. Daily Max: 5 mg 28 Tablet 5 03/03/2023 10/06/2023 documented as of this encounter Discharge Disposition Disposition Code Departure Means Destination Home or Self Care documented in this encounter Plan of Treatment Upcoming Encounters Date Type Department Care Team (Late st Contact Info) Description 06/29/2024 14:15 EDT Office Visit [facility] [address] [place] [address] Jean Munoz MD [address] [place] [phone] documented as of this encounter Procedures Procedure Name Priority Date/Time Associated Diagnosis Comments CT CHEST WO CONTRAST Routine 08/25/2023 11:33 EST Malignant neoplasm of upper lobe, right bronchus or lung ([facility]) documented in this encounter Results * CT CHEST WO CONTRAST (08/25/2023 [...] changes from the studies of Jan, 2023. [id number] Narrative 08/25/2023 12:[address] CHEST WO [...] changes from the studies of Jan, 2023. [id number] Afia Valle MD IMG CT ORDERAB LES documented in this encounter Visit Diagnoses Diagnosis Malignant neoplasm of upper lobe, right bronchus or lung ([facility]) Screening for osteoporosis- Primary Special screening for osteoporosis Primary narcolepsy without cataplexy Chronic pain syndrome Chronic low back pain Lumbago Chronic use of opiate for therapeutic purpose Pain medication agreement Encounter for long-term (current) use of other medications Screen for colon cancer Special screening for malignant neoplasms, colon documented in this encounter Care Teams Pickle Pumper Relationship Specialty Start Date End Date Jean Munoz MD [address] [place] [phone] PCP - General 12/31/08 Manny Rizzo MD [address] [place] [phone] 04/20/10 Afia Valle MD [address] [place] [address], [address] [place] [phone] Care Team Radiation Oncology 07/02/21 Jesi Leong, [facility] [address] [place] [address] Behavioral Health Demonstrator SalesTable Maker Care 10/19/22 01/23/24 documented as of this encounter
--- OUTSIDE RECORDS SUMMARY | 2024-06-10 07:04 | XMS_ITS | Encounter Summary ---
Author Organization [facility] Address [address] [place] [address] Care Team Providers Care Compressor Station Chief Engineer Name Role Phone Jean Munoz MD Primary Care Provider Manny Rizzo MD Unavailable Afia Valle MD Unavailable Jesi Leong DREDGE OPERATOR SUPERVISOR Unavailable [phone] Reason for Visit * Reason Comments Depression Anxiety Encounter Details Date Type Department Care Team (Late st Contact Info) Description 11/02/2023 14:45 EST Telemedicine [facility] [address] [place] [address] Jesi Leong DREDGE OPERATOR SUPERVISOR [address] [place] [address] Current moderate episode of major depressive disorder, unspecified whether recurrent (HCC-CMS) (Primary Dx) Social History Tobacco Use Types Packs/Day Years [...] place to sleep or slept in a long term (including now)? Yes 07/15/2023 Interpersonal Safety Answer [...] of this encounter Progress Notes * Jesi Leong [facility] - 11/02/2023 5955 EST Images from the original note were not included. Primary Care Mental Health Integration Collaborative Care Mental Health Clinician Encounter 11/02/2023 Time Spent: 7 minutes in Direct and Indirect Collaborative Care Encounter Type: Telephone Encounter Contact: patient Collaborative Care Activities: Care management activities Summary of Care Provided: This entry writer spoke with Liset as planned. Doing ok, still in [facility] ([facility]), planning to stay. Rent much cheaper. Has Housing CaseManager - has applied to [employer] In progress. Partner found employment in [facility], good job, he likes it. Looking at purchasing vehicle tomorrow, shares a big milestone for us. Much resilience through adversity, perseverance. States as far as outpatient counseling goes with a community clinician - desires to wait until she is settled into her own apartment. Plan: Agree to care management check in in one month. December 01 at 1:15pm by phone. Validated Behavioral Health Measures 06/08/2023 12:36 07/15/2023 11:15 08/03/2023 13:35 08/24/2023 8:50 08/24/2023 8:51 08/24/2023 8:52 08/24/2023 8:54 Risk Totals: MFQ, PHQ-9A, PHQ-2/PHQ-9, and HEYDI-7 PHQ-2 2 3 3 2 2 PHQ-9 16 11 8 10 PHQ-9 Interpretation Moderately Severe Depression Moderate Depression Mild Depression Moderate Depression HEYDI-2 3 4 2 HEYDI-7 8 15 9 HEYDI-7 Interpretation Mild Anxiety Severe Anxiety Mild Anxiety - documented in this encounter Plan of Treatment Upcoming Encounters Date Type Department Care Team (Late st Contact Info) Description 06/29/2024 14:15 EDT Office Visit [facility] [address] [place], [place] [phone] Jean Munoz MD [address] [place] [phone] documented as of this encounter Visit Diagnoses Diagnosis Current moderate episode of major depressive disorder, unspecified whether recurrent ([facility])- Primary Screening for osteoporosis- Primary Special screening for osteoporosis Primary narcolepsy without cataplexy Chronic pain syndrome Chronic low back pain Lumbago Chronic use of opiate for therapeutic purpose Pain medication agreement Encounter for long-term (current) use of other medications Screen for colon cancer Special screening for malignant neoplasms, colon documented in this encounter Care Teams Compressor Station Chief Engineer Relationship Specialty Start Date End Date Jean Munoz MD [address] [place] [phone] PCP - General 12/31/08 Manny Rizzo MD [address] [place] [phone] 04/20/10 Afia Valle MD [address] [place] [address] 2 [place] [phone] MD Care Team Radiation Oncology 07/02/21 Jesi Leong, [facility] [address] [place] [phone] Behavioral Health Spiritual Care CoordinatorProduct Support Consultant Care 10/19/22 01/23/24 documented as of this encounter
--- OUTSIDE RECORDS SUMMARY | 2024-06-10 07:04 | XMS_ITS | Encounter Summary ---
Author Organization [facility] Address [address] [place] [address] Care Team Providers Care Respiratory Care Instructor Name Role Phone Jean Munoz MD Primary Care Provider Manny Rizzo MD Unavailable Afia Valle MD Unavailable Jesi Leong Unavailable Reason for Referral * Laboratory Services (Routine/Next Available) - New Request Specialty Diagnoses / Procedures Referred By [facility] Referred To Contact Diagnoses Screen for colon cancer Procedures FECAL IMMUNOCHEMISTRY TEST (FIT) Jean Munoz MD [address] [place] [address] Referral ID Status Reason Start Date Expiration Date V isits Requested Visits Authorized [id number] New Request 12/23/2023 1 1 * Laboratory Services (Routine/Next Available) - New Request Specialty Diagnoses / Procedures Referred By [facility] Referred To Contact Diagnoses Chronic pain syndrome Procedures POLYSUBSTANCE USE PANEL, URINE Jean Munoz MD [address] [place] [phone] Referral ID Status Reason Start Date Expiration Date V isits Requested Visits Authorized [id number] New Request 12/23/2023 1 1 Reason for Visit * Reason Comments Chronic Pain Encounter Details Date Type Department Care Team (Late st Contact Info) Description 12/23/2023 9:[address] [facility] [address] [place] [address] Jean Munoz MD [address] [place] [address] Panlobular emphysema (HCC-CMS) (Primary Dx); Primary narcolepsy without cataplexy; Chronic pain syndrome; Chronic low back pain; Chronic use of opiate for therapeutic purpose; Pain medication agreement; Primary cancer of right upper lobe of lung (HCC-CMS); Obesity (BMI 30-39.9); Impaired glucose tolerance; Irritable bowel syndrome, unspecified type; Gastroesophageal reflux disease, unspecified whether esophagitis present; Fatty liver; Major depressive disorder, recurrent, severe without psychotic features (HCC-CMS); Anxiety; Restless legs syndrome; KATJA (obstructive sleep apnea); Insomnia, unspecified type; Screening for diabetes mellitus; Screening for hyperlipidemia; Screen for colon cancer Social History Tobacco Use Types Packs/Day Years [...] place to sleep or slept in a detention (including now)? Yes 07/15/2023 Interpersonal Safety Answer [...] Dispensed Refills Start Date End Da te HYDROcodone-acetaminoph en (NORCO) 7.5-325 mg per tabletIndications:Chron ic pain syndrome,Chronic low back pain,Chronic use of opiate for therapeutic purpose,Pain medication agreement Take 1 Tablet by mouth every 6 hours for 28 days. For chronic pain. Daily Max: 4 Tablets 112 Tablet 02/24/2024 03/07/2024 HYDROcodone-acetaminoph en (NORCO) 7.5-325 mg per tabletIndications:Chron ic pain syndrome,Chronic low back pain,Chronic use of opiate for therapeutic purpose,Pain medication agreement Take 1 Tablet by mouth every 6 hours for 28 days. For chronic pain. Daily Max: 4 Tablets 112 Tablet 01/27/2024 03/07/2024 HYDROcodone-acetaminoph en (NORCO) 7.5-325 mg per tabletIndications:Chron ic pain syndrome,Chronic low back pain,Chronic use of opiate for therapeutic purpose,Pain medication agreement Take 1 Tablet by mouth every 6 hours for 28 days. For chronic pain. Daily Max: 4 Tablets 112 Tablet 12/30/2023 03/07/2024 methylphenidate HCl (RITALIN;METHYLIN) 10 mg tabletIndications:Prima ry narcolepsy without cataplexy Take 1 Tablet by mouth daily for 28 days. For narcolepsy. Daily Max: 10 mg 28 Tablet 02/24/2024 03/07/2024 methylphenidate HCl (RITALIN;METHYLIN) 10 mg tabletIndications:Prima ry narcolepsy without cataplexy Take 1 Tablet by mouth daily for 28 days. For narcolepsy. Daily Max: 10 mg 28 Tablet 01/27/2024 03/07/2024 methylphenidate HCl (RITALIN;METHYLIN) 10 mg tabletIndications:Prima ry narcolepsy without cataplexy Take 1 Tablet by mouth daily for 28 days. For nacolepsy Daily Max: 10 mg 28 Tablet 12/30/2023 03/07/2024 methylphenidate HCl (RITALIN;METHYLIN) 20 mg tabletIndications:Prima ry narcolepsy without cataplexy Take 2 Tablets by mouth daily for 28 days. For narcolepsy. Daily Max: 40 mg 56 Tablet 02/24/2024 03/07/2024 methylphenidate HCl (RITALIN;METHYLIN) 20 mg tabletIndications:Prima ry narcolepsy without cataplexy Take 2 Tablets by mouth daily for 28 days. For narcolepsy. Daily Max: 40 mg 56 Tablet 01/27/2024 03/07/2024 methylphenidate HCl (RITALIN;METHYLIN) 20 mg tabletIndications:Prima ry narcolepsy without cataplexy Take 1 Tablet by mouth 2 times daily for 28 days. Daily Max: 40 mg 56 Tablet 12/30/2023 03/07/2024 documented in this encounter Progress Notes * Kaitlyn Montero LPN - 12/23/2023 0945 EDT The [place] [employer] Monitoring System query has been completed. Hydrocodone-Acetaminophen 7.5-325 mg: Filled: 12/09/23 Quantity: 84 tabs for 21 days Methylphenidate 20 mg: Filled: 12/02/23 Quantity: 56 tabs for 28 days Hydrocodone-Acetaminophen 7.5-325 mg: Filled: 12/02/23 Quantity: 28 tabs for 7 days Methylphenidate 10 mg: Filled: 12/02/23 Quantity: 28 tabs for 28 days Zolpidem 5 mg: Filled: 10/06/23 Quantity: 28 tabs for 28 days KAITLYN MONTERO LPN * Kaitlyn Montero LPN - 12/23/2023 0945 EDT The concept of ???Telemedicine?? has been described [...] copays, deductible or coinsurance for this service. KAITLYN MONTERO LPN * Jean Munoz MD - 12/23/2023 4268 EDT Primary Care Video Visit Assessment & Plan Panlobular emphysema ([facility]) Seems to be doing well. Continue Spiriva, Symbicort. Also on montelukast. Could use albuterol if needed. Follow-up per pulmonology next week. Primary narcolepsy without cataplexy - methylphenidate HCl (RITALIN;METHYLIN) 20 mg tablet - methylphenidate HCl (RITALIN;METHYLIN) 20 mg tablet - methylphenidate HCl (RITALIN;METHYLIN) 20 mg tablet - methylphenidate HCl (RITALIN;METHYLIN) 10 mg tablet - methylphenidate HCl (RITALIN;METHYLIN) 10 mg tablet - methylphenidate HCl (RITALIN;METHYLIN) 10 mg tablet Stable, renew methylphenidate. Chronic pain syndrome Chronic low back pain Chronic use of opiate for therapeutic purpose Pain medication agreement - HYDROcodone-acetaminophen (NORCO) 7.5-325 mg per tablet - HYDROcodone-acetaminophen (NORCO) 7.5-325 mg per tablet - HYDROcodone-acetaminophen (NORCO) 7.5-325 mg per tablet - POLYSUBSTANCE USE PANEL, URINE Seems to be doing well with more stable home environment although she is now living in [place]. She is on gabapentin in addition to hydrocodone/APAP. Unfortunately she has not had urine testing in over a year. We reviewed state requirements for medication monitoring with long-term opiate use. Will renew medications but also placed order for urine screen to be done at the lab in [place].. If she is unable to do urine testing or follow-up with us regularly she may need to transfercare to a provider closer to where she lives. [facility] Primary cancer of right upper lobe of lung ([facility]) Follow-up for radiation oncology scheduled in March. CT scan pending prior. Obesity (BMI 30-39.9) Seems to have improved. Impaired glucose tolerance Will check A1c with labs. Irritable bowel syndrome, unspecified type Gastroesophageal reflux disease, unspecified whether esophagitis present Stable on omeprazole 40 mg daily. Fatty liver - COMPLETE BLOOD COUNT - COMPREHENSIVE METABOLIC PANEL (CMP) Major depressive disorder, recurrent, severe without psychotic features ([facility]) Anxiety Mood seems improved. Currently on buspirone 15 mg 3 times daily. Also on duloxetine 60 mg 2 capsules daily. Restless legs syndrome Continue ropinirole. KATJA (obstructive sleep apnea) No longer on CPAP. Insomnia, unspecified type Uses zolpidem 5 mg at bedtime. Screening for diabetes mellitus - HEMOGLOBIN A1C Screening for hyperlipidemia - LIPID PROFILE (INCLUDES CHOLESTEROL, TRIGLYCERIDES, HDL, LDL) Screen for colon cancer - FECAL IMMUNOCHEMISTRY TEST (FIT) Also taking doxycycline 100 mg daily for rosacea. Return in about 12 weeks (around 03/16/2024). Patient education was direct. Barriers were assessed and addressed as needed. I spent a total of 30 minutes on the date of this encounter meeting with the patient and reviewing documentation/coordinating care as described in the above note. Unless otherwise noted, no procedures were performed at the time of the visit. Kalie Hutchins is a 62 y.o. female presenting with Chronic Pain History of Present Illness Liset is a 62-year-old female with COPD, lung cancer, IGT, obesity, IBS, GERD, fatty liver, depression/anxiety, chronic pain on long-term opiate therapy, RLS, KATJA, narcolepsy, insomnia scheduled for follow-up video visit for management of chronic pain. The patient has relocated to a new residence in [facility], which has contributed to an overall improvement in her health status. She is scheduled for blood work at the local hospital and is seeking necessary orders for the same. Her respiratory function has significantly improved, and she continues to be under the care of her dukey rider for lung cancer, with a CT scan planned for 01/2024. The frequency of her check-ups has been reduced from every 3 months to biannually, with the potential to extend to annually if the upcoming results are favorable. She has not required prednisone during the winter season. Her gastrointestinal symptoms, including IBS and reflux, have shown improvement, likely due to a reduction in stress levels. Her mood remains stable, and she denies any current anxiety issues. She has discontinued the use of CPAP for sleep apnea as per her neurologist's advice. Her medication regimen includes Ritalin 20 mg and 10 mg, and hydrocodone 7.5 mg, administered four times daily. She is also on methylphenidate, with the last prescriptions filled in 09/2023, 10/2023,and 11/2023. She does not require any additional medications at this time. She acknowledges the need for a mammogram and plans to address it in the future. She underwent a comprehensive check-up in the fall. Data reviewed this visit: problem list/past medical history, current medications, allergies, surgical history, family history, social history, last visit note, health maintenance items, recent labs, and recent specialist documentation Objective LMP 01/11/1987 Physical Exam On video she is alert, cooperative, appears to have lost weight. Today's visit was provided through telemedicine video conferencing: The location of the patient : Home (where patient lives) The location of the provider: Clinic Exam Room The following staff and their role did participate in today's encounter visit: Jean Munoz MD The concept of Telemedicine has been described to the patient. Patient has been informed of the anticipated benefits and possible risks. Patient understands the information provided regarding telemedicine, has had the opportunity to ask questions about this information, and all questions have been answered to patient's satisfaction. Patient consents for the use of telemedicine in his/her medical care and authorizes the transmission of any relevant medical information to providers and their staff involved in patient's medical or mental health care. I discussed with Liset Viera the use of this audio recording tool to create a clinical note. I explained the benefits of the technology, such as time savings and a better patient experience. I explained that the recording will be confidential and converted into a written note which I will review and edit as needed before it is saved in the medical record. The patient expressed an understanding of the use of this technology for clinical documentation and agreed to allow its use for this encounter. documented in this encounter Plan of Treatment Upcoming Encounters Date Type Department Care Team (Late st Contact Info) Description 06/29/2024 14:15 EDT Office Visit [address] [address] Jean Munoz MD [address] [place] [phone] Scheduled Orders Name Type Priority Associated Diagnoses Orde r Schedule POLYSUBSTANCE USE PANEL, URINE Lab Routine Chronic pain syndrome Expected: 12/23/2023 (Approximate), Expires: 12/22/2024 FECAL IMMUNOCHEMISTRY TEST (FIT) Microbiology Routine Screen for colon cancer Expected: 09/07/2024 (Approximate), Expires: 12/22/2024 documented as of this encounter Visit Diagnoses Diagnosis Panlobular emphysema (HCC-CMS)- Primary Other emphysema Primary narcolepsy without cataplexy Chronic pain syndrome Chronic low back pain Lumbago Chronic use of opiate for therapeutic purpose Pain medication agreement Encounter for long-term (current) use of other medications Primary cancer of right upper lobe of lung (HCC-CMS) Obesity (BMI 30-39.9) Obesity, unspecified Impaired glucose tolerance Impaired glucose tolerance test Irritable bowel syndrome, unspecified type Gastroesophageal reflux disease, unspecified whether esophagitis present Fatty liver Other chronic nonalcoholic liver disease Major depressive disorder, recurrent, severe without psychotic features (HCC- CMS) Major depressive disorder, recurrent episode, severe, without mention of psychotic behavior Anxiety Anxiety state, unspecified Restless legs syndrome Restless legs syndrome (RLS) KATJA (obstructive sleep apnea) Obstructive sleep apnea (adult) (pediatric) Insomnia, unspecified type Screening for diabetes mellitus Screening for hyperlipidemia Screening for lipoid disorders Screen for colon cancer Special screening for malignant neoplasms, colon Screening for osteoporosis- Primary Special screening for [...] 28 days. Daily Max: 40 mg Reorder 12/02/2023 12/07/2023 methylphenidate HCl (RITALIN;METHYLIN) 10 mg tabletIndications:Prima ry narcolepsy without cataplexy Take 1 Tablet by mouth daily for 28 days. For nacolepsy Daily Max: 10 mg Reorder 12/02/2023 12/07/2023 HYDROcodone-acetaminoph en (NORCO) 7.5-325 mg per tabletIndications:Chron ic pain syndrome,Chronic low back pain,Chronic use of opiate for therapeutic purpose,Pain medication agreement Take 1 Tablet by mouth every 6 hours for 28 days. For chronic pain. Daily Max: 4 Tablets Reorder 12/02/2023 12/07/2023 HYDROcodone-acetaminoph en (NORCO) 7.5-325 mg per tabletIndications:Chron ic pain syndrome,Chronic low back pain,Chronic use of opiate for therapeutic purpose,Pain medication agreement Take 1 Tablet by mouth every 6 hours for 28 days. For chronic pain. Daily Max: 4 Tablets Reorder 10/07/2023 12/07/2023 methylphenidate HCl (RITALIN;METHYLIN) 10 mg tabletIndications:Prima ry narcolepsy without cataplexy Take 1 Tablet by mouth daily for 28 days. For narcolepsy. Daily Max: 10 mg Reorder 10/07/2023 12/07/2023 methylphenidate HCl (RITALIN;METHYLIN) 20 mg tabletIndications:Prima ry narcolepsy without cataplexy Take 2 Tablets by mouth daily for 28 days. For narcolepsy. Daily Max: 40 mg Reorder 10/07/2023 12/07/2023 methylphenidate HCl (RITALIN;METHYLIN) 10 mg tabletIndications:Prima ry narcolepsy without cataplexy Take 1 Tablet by mouth daily for 28 days. For narcolepsy. Daily Max: 10 mg Reorder 12/03/2023 12/07/2023 methylphenidate HCl (RITALIN;METHYLIN) 20 mg tabletIndications:Prima ry narcolepsy without cataplexy Take 2 Tablets by mouth daily for 28 days. For narcolepsy. Daily Max: 40 mg Reorder 12/03/2023 12/07/2023 HYDROcodone-acetaminoph en (NORCO) 7.5-325 mg per tabletIndications:Chron ic pain syndrome,Chronic low back pain,Chronic use of opiate for therapeutic purpose,Pain medication agreement Take 1 Tablet by mouth every 6 hours for 21 days. For chronic pain. Daily Max: 4 Tablets Reorder 12/03/2023 12/07/2023 documented as of this encounter Care Teams Respiratory Care Instructor Relationship Specialty Start Date End Date Jean Munoz MD [address] [place] [phone] PCP - General 12/31/08 Manny Rizzo MD [address] [place] [phone] 04/20/10 Afia Valle MD [address] [facility] [address] [place] [phone] MD Care Team Radiation Oncology 07/02/21 Jesi Leong, [facility] [address] [place] [address] Behavioral Health Telemarketing Sales RepresentativePattern Fitter Care 10/19/22 01/23/24 documented as of this encounter
--- OUTSIDE RECORDS SUMMARY | 2024-06-10 07:04 | XMS_ITS | Encounter Summary ---
Author Organization [facility] Address [address] [place] [address] Care Team Providers Care Tunnel Inspector Name Role Phone Jean Munoz MD Primary Care Provider Manny Rizzo MD Unavailable Afia Valle MD Unavailable [phone] Jesi Leong Unavailable Reason for Visit * Reason Onset Date Comments Medication Problem 10/07/2023 Medications Refill 10/07/2023 Pharmacy 10/07/2023 Encounter Details Date Type Department Care Team (Late st Contact Info) Description 10/07/2023 Refill [facility] [address] [place] [address] Jean Munoz MD [address] [place] [phone] Medication Problem; Medications Refill; Pharmacy Social History Tobacco Use Types Packs/Day Years [...] place to sleep or slept in a correction (including now)? Yes 07/15/2023 Interpersonal Safety Answer [...] Dispensed Refills Start Date End Da te methylphenidate HCl (RITALIN;METHYLIN) 20 mg tabletIndications:Primar y narcolepsy without cataplexy Take 2 Tablets by mouth daily for 28 days. For narcolepsy. Daily Max: 40 mg 56 Tablet 10/07/2023 12/07/2023 methylphenidate HCl (RITALIN;METHYLIN) 10 mg tabletIndications:Primar y narcolepsy without cataplexy Take 1 Tablet by mouth daily for 28 days. For narcolepsy. Daily Max: 10 mg 28 Tablet 10/07/2023 12/07/2023 documented in this encounter Miscellaneous Notes * Telephone Encounter - Jean Munoz MD - 10/07/2023 1513 EST Prescriptions sent to pharmacy as requested. * Telephone Encounter - Armand Chapman RN - 10/07/2023 1415 EST Images from the original note were not included. Vpms check: Routing to provider to review. ARMAND CHAPMAN RN 10/07/2023 14:17 * Telephone Encounter - Yadira Hoffmann - 10/07/2023 1357 EST Medication(s) Requested: methylphenidate HCl (RITALIN;METHYLIN) 20 mg tablet and methylphenidate HCl (RITALIN;METHYLIN) 10 mg tablet *Patient advised pharmacy in [place] didn't have this medication in the 20 or 10mg, & she'sasking for it to be re-sent to the pharmacy in [place] instead. Patient would like to be notified when this request is re-faxed. Pharmacy: [facility]/pharmacy #[id number] - [place], [place] - [address] [phone] Next Visit Date 11/02/2023 Last Visit Date 07/15/2023 Out of Medication? Yes, patient will be out when she takes her last dose in the morning. Yadira Gallardo 10/07/2023 13:59 documented in this encounter Plan of Treatment Upcoming Encounters Date Type Department Care Team (Late st Contact Info) Description 06/29/2024 14:15 EDT Office Visit [facility] [address] [place] [address] Jean Munoz MD [address] [place] [phone] documented as of this encounter Visit Diagnoses Diagnosis Primary narcolepsy without cataplexy- Primary Screening for osteoporosis- Primary Special screening [...] Da te methylphenidate HCl (RITALIN;METHYLIN) 20 mg tabletIndications:Primar y narcolepsy without cataplexy Take 2 Tablets by mouth daily for 28 days. For narcolepsy. Daily Max: 40 mg Reorder 10/07/2023 10/07/2023 methylphenidate HCl (RITALIN;METHYLIN) 10 mg tabletIndications:Primar y narcolepsy without cataplexy Take 1 Tablet by mouth daily for 28 days. For narcolepsy. Daily Max: 10 mg Reorder 10/07/2023 10/07/2023 documented as of this encounter Care Teams Tunnel Inspector Relationship Specialty Start Date End Date Jean Munoz MD [address] [place] [phone] PCP - General 12/31/08 Manny Rizzo MD [address] [place] [phone] 04/20/10 Afia Valle MD [address] [facility] [address] [place] [phone] MD Care Team Radiation Oncology 07/02/21 Jesi Leong, [facility] [address] [place] [address] Behavioral Health Tailor Garment FitterWind Up Operator Care 10/19/22 01/23/24 documented as of this encounter
--- OUTSIDE RECORDS SUMMARY | 2024-06-10 07:04 | XMS_ITS | Encounter Summary ---
Author Organization [facility] Address [address] [place] [address] Care Team Providers Care Tree Killer Name Role Phone Jean Munoz MD Primary Care Provider Manny Rizzo MD Unavailable Afia Valle MD Unavailable Jesi Leong OFFSET LITHOGRAPHIC PRESS SETTER Unavailable Reason for Visit * Reason Comments Anxiety Depression Other Homelessness Encounter Details Date Type Department Care Team (Late st Contact Info) Description 08/24/2023 11:30 EST Telemedicine [facility] [place] [address] [place] [address] Jesi Leong, OFFSET LITHOGRAPHIC PRESS SETTER [address] [place] [address] Current moderate episode of major depressive disorder, unspecified whether recurrent (HCC-CMS) (Primary Dx); Anxiety Social History Tobacco [...] place to sleep or slept in a mcc (including now)? Yes 07/15/2023 Interpersonal Safety Answer [...] Progress Notes * Jesi Leong LICSW - 08/24/2023 1130 EST Images from the original note were not included. Primary Care Mental Health Integration Collaborative Care Mental Health Clinician Follow-up Note Date of Service: 08/24/2023 Time of Service: 11:30am Total Time: 22 minutes Collaborative Care Time Spent: 2 minutes Psychotherapy Time Spent: 20 minutes Psychotherapy Procedure Code: [id number] 16-37mins individual f/u Appointment took place via televideo with patient. TELEMEDICINE VIDEO VISIT Today's visit was provided through telemedicine video conferencing: I have reviewed the appropriateness of using video technology with the patient with regards to today's visit. The location of the patient : Hotel: [facility] Patient location state: Visit Location State: [place] The location of the provider: Office Provider location state: Visit Location State: [place] The following people and their roles were present for today's visit: Appointment Provider: Jesi Leong LICSW Jessica E Denton, LICSW Chief Complaint/Reason for Visit Chief Complaint Patient presents with Anxiety Depression Other Homelessness Rationale for This Session Cognitive Behavior Therapy, Behavioral Activation, and Problem-Solving Therapy is indicated to treat anxiety and depression and has been empirically documented to be effective in the treatment of this patient's condition. Rationale for Frequency and Duration of Services Consistent with patient request and treatment modality Information obtained from: patient interview Subjective Liset reports has not felt well for several days; feels infection in her lungs. Imaging tomorrow. Notes when feeling physically unwell, depressive symptoms worsen. States she has been sleeping literally sleeping almost 24 hours a day. Only in last two days has had any appetite. Confirms hydrating.Shares due to so much sleep, less anxious no time to think about anything. So unwell, not even playing games on tablet which is usually one of her coping. Liset states they did not get the [facility] apartment as the landlord did not rent it to two people, only wants a single person in unit. Liset shares a sense of less resources being back in [facility], interested in social work support. [place] one year since she became homeless (August 20, 2022). Liset states one positive of [facility] i s they have housekeeping daily; one difficult thing is they're not allowed guests or to visit otherpeople in their rooms. Liset shares her brother is at [facility] too, but right now they are not permitted to socialize inside (states a rule of COVID times, not yet changed). Liset states she'd like to cook a ham dinner for holiday. Loss themes, Liset's two three year old cats are staying with a friend, [facility] does not permit pets, even Emotional Support Animals. Liset states she is considering the [facility] if she cannot get permanent housing soon. Feels unfair to them. Is watching her oxygen, has a sensor, however coughing during visit and notes it's been a struggle. Wishes to wait for care, imaging tomorrow and provider on Wednesday. Discussed future therapy, Liset confirms she does desire continued support for her mood and anxiety. Objective Mental Status Examination Appearance: casually dressed, well groomed, and appears coping with viral illness . Behavior: readily engaged in discussion Alertness: alert Speech: speech is of normal rate, tone, and spontaneity, use of language is is normal. Orientation: to person, place, time and situation Mood: down Affect: congruent with reported mood Thought Process: organized and future oriented. Memory: intact Judgment:fair Validated Behavioral Health Measures 06/08/2023 12:36 07/15/2023 11:15 08/03/2023 13:35 08/24/2023 8:50 08/24/2023 8:51 08/24/2023 8:52 08/24/2023 8:54 Risk Totals: MFQ, PHQ-9A, PHQ-2/PHQ-9, and HEYDI-7 PHQ-2 2 3 3 2 2 PHQ-9 16 11 8 10 PHQ-9 Interpretation Moderately Severe Depression Moderate Depression Mild Depression Moderate Depression HEYDI-2 3 4 2 HEYDI-7 8 15 9 HEYDI-7 Interpretation Mild Anxiety Severe Anxiety Mild Anxiety Current Medications Current Outpatient Medications Medication Sig Dispense Refill benzonatate (TESSALON) 100 mg capsule Take 1 Capsule by mouth 3 times daily as needed for Cough. 80Capsule 3 busPIRone (BUSPAR) 15 mg tablet Take 1 Tablet by mouth 3 times daily. 270 Tablet 3 cycloSPORINE (RESTASIS) 0.05 % ophthalmic emulsion Place 1 drop into both eyes 2 times daily. 1 vial 0 docusate sodium (COLACE) 100 mg capsule Take 1 Capsule by mouth 2 times daily as needed for Constipation. doxycycline (VIBRA-TABS) 100 mg tablet TAKE 1 TABLET BY MOUTH EVERY DAY for rosacea 90 Tablet 3 DULoxetine (CYMBALTA) 60 mg capsule Take 2 Capsules by mouth daily. For depression, anxiety 180 Each 3 fexofenadine (JDUITH) 180 mg tablet TAKE 1 TABLET BY MOUTH EVERY DAY for allergies 90 Tablet 4 [START ON 09/09/2023] HYDROcodone-acetaminophen (NORCO) 7.5-325 mg per tablet Take 1 Tablet by mouth every 6 hours for 28 days. For chronic pain. Daily Max: 4 Tablets 112 Tablet 0 HYDROcodone-acetaminophen (NORCO) 7.5-325 mg per tablet Take 1 Tablet by mouth every 6 hours for 28days. For chronic pain. Daily Max: 4 Tablets 112 Tablet 0 HYDROcodone-acetaminophen (NORCO) 7.5-325 mg per tablet Take 1 Tablet by mouth every 6 hours for 28days. For chronic pain. Daily Max: 4 Tablets 112 Tablet 0 hydroxypropyl methylcellulose (ISOPTO TEARS) 0.5 % ophthalmic solution Place 1 Drop into both eyes 5 times daily. ipratropium-albuteroL (DUONEB) 0.5 mg-3 mg(2.5 mg base)/3 mL nebulizer solution Take 3 mL by nebulization every 4 hours as needed for Wheezing. 3 mL 3 lancets Brand: One Touch Haloband, check blood glucose twice daily. 100 Each 3 levalbuterol (XOPENEX HFA) 45 mcg/actuation inhaler INHALE TWO PUFFS BY MOUTH EVERY 4 HOURS NEEDED FOR WHEEZING/SHORTNESS OF BREATH DIRECTED 15 g 3 lidocaine (XYLOCAINE) 2 % solution 5 ML, mixed with 5 ml mylanta or maalox, swish and swallow for swallowing pain. 100 mL 2 methocarbamoL (ROBAXIN) 500 mg tablet TAKE TWO TABLETS BY MOUTH DAILY AT BEDTIME 180 Tablet 1 [START ON 09/09/2023] methylphenidate HCl (RITALIN;METHYLIN) 10 mg tablet Take 1 Tablet by mouth daily for 28 days. For narcolepsy. Daily Max: 10 mg 28 Tablet 0 methylphenidate HCl (RITALIN;METHYLIN) 10 mg tablet Take 1 Tablet by mouth daily for 28 days. For narcolepsy. Daily Max: 10 mg 28 Tablet 0 methylphenidate HCl (RITALIN;METHYLIN) 10 mg tablet Take 1 Tablet by mouth daily for 28 days. For nacolepsy Daily Max: 10 mg 28 Tablet 0 [START ON 09/09/2023] methylphenidate HCl (RITALIN;METHYLIN) 20 mg tablet Take 2 Tablets by mouth daily for 28 days. For narcolepsy. Daily Max: 40 mg 56 Tablet 0 methylphenidate HCl (RITALIN;METHYLIN) 20 mg tablet Take 2 Tablets by mouth daily for 28 days. For narcolepsy. Daily Max: 40 mg 56 Tablet 0 methylphenidate HCl (RITALIN;METHYLIN) 20 mg tablet Take 1 Tablet by mouth 2 times daily for 28 days. Daily Max: 40 mg 56 Tablet 0 montelukast (SINGULAIR) 10 mg tablet TAKE 1 TABLET BY MOUTH EVERY DAY for allergies 90 Tablet 3 montelukast (SINGULAIR) 10 mg tablet Take 1 Tab by mouth daily. For allergies (Patient not taking: Reported on 03/24/2023) 90 Tab 3 omeprazole (PRILOSEC) 40 mg capsule Take 1 Cap by mouth daily. 90 Cap 3 ondansetron (ZOFRAN) 4 mg tablet Take 1 Tablet by mouth every 8 hours as needed for Nausea. 30 Tablet 2 ONETOUCH DELICA PLUS LANCET 33 gauge [facility] ONETOUCH ULTRA TEST test strips TEST 2 TIMES DAILY. 200 Each 3 pregabalin (LYRICA) 300 mg capsule TAKE ONE CAPSULE BY MOUTH TWICE DAILY *daily max 2 capsules 180 Capsule 1 promethazine (PHENERGAN) 25 mg tablet Take 1 Tablet by mouth every 6 hours as needed for Nausea. 30Tablet 2 rOPINIRole (REQUIP) 2 mg tablet TAKE 1 TABLET BY MOUTH NIGHTLY AT BEDTIME 90 Tablet 3 SUMAtriptan (IMITREX) 100 mg tablet TAKE 1 TABLET BY MOUTH AT ONSET OF MIGRAINE 9 Tablet 2 SYMBICORT 80-4.5 mcg/actuation HFA aerosol inhaler inhaler Inhale 2 Puffs as directed 2 times daily. Use with spacer and rinse mouth after use. 10.2 g 11 tiotropium bromide (SPIRIVA RESPIMAT) 2.5 mcg/actuation inhalation mist Inhale 2 Puffs as directed daily. 4 g 11 zolpidem (AMBIEN) 5 mg tablet Take 1 Tablet by mouth at bedtime. Daily Max: 5 mg 28 Tablet 5 No current facility-administered medications for this visit. Psychopharmacology: Compliance:compliant all of the time Effectiveness:Yes Side Effects: None reported Assessment (include DSM V diagnosis, progress since last session, and decision making regarding treatment plan) Liset is a 62 y.o. female presenting with (F32.1) Current moderate episode of major depressive disorder, unspecified whether recurrent ([facility]) (primary encounter diagnosis) (F41.9) Anxiety Liset denies any suicidal ideation, plan or intent. She notes there are some days she prays not to wake up, but denies any intention to end her life by suicide. Liset continues to cope with homelessness which can be a contributor to her mood presentation. However, she is also coping with viral illness and notes how unwell she's felt the past several days. States she is starting to feel appetite return so will follow up with imaging tomorrow and provider visit on Wednesday. Liset notes gratitude for partner / caregiver, Will. Liset aware of coping strategies, however due to illness has been finding sleep her needed support. Liset desires continued outpatient counseling as today is our th visit. This underwriter mortgage loan sent Liset resources / candidates via [employer] as agreed. Stage of Change: Action Recommendations and Plan Recommended Level of Care: Brief Intervention, Outpatient Psychotherapy 2. Continue current treatment plan 3. Follow up is scheduled for September 21, 2023 at 11:15am via [employer] Zoom. 4. Complete Skills Practice: self-care basics / follow through with upcoming medical 5. Care Management Needs: Look over candidates sent via [employer] for ongoing outpatient therapy: FADUMO Howell, Kait Fountain MA, [facility], and Lilliana Garcia MS 6. Continue current pharmacotherapy as applicable. Expectations of Next Session: Continue current treatment plan Anticipated Length of Treatment:1 additional every other week or monthly sessions Anticipated Duration of Sessions: 30 minutes FADUMO Salcedo 08/24/2023 16:35 documented in this encounter Plan of Treatment Upcoming Encounters Date Type Department Care Team (Late st Contact Info) Description 06/29/2024 14:15 EDT Office Visit [facility] [address] [place], [place] [id number] Jean Munoz MD [address] [place] [phone] documented as of this encounter Visit Diagnoses Diagnosis Current moderate episode of major depressive disorder, unspecified whether recurrent ([facility])- Primary Anxiety Anxiety state, unspecified Screening for osteoporosis- Primary Special screening for osteoporosis Primary narcolepsy without cataplexy Chronic pain syndrome Chronic low back pain Lumbago Chronic use of opiate for therapeutic purpose Pain medication agreement Encounter for long-term (current) use of other medications Screen for colon cancer Special screening for malignant neoplasms, colon documented in this encounter Care Teams Tree Killer Relationship Specialty Start Date End Date Jean Munoz MD [address] [place] [phone] PCP - General 12/31/08 Manny Rizzo MD [address] [place] [phone] 04/20/10 Afia Valle MD [address] [place] [address] [address] [place] [phone] Care Team Radiation Oncology 07/02/21 Jesi Leong LICSW [address] [place] [phone] Behavioral Health Inspector TubesRadio Repairer Care 10/19/22 01/23/24 documented as of this encounter
--- OUTSIDE RECORDS SUMMARY | 2024-06-10 07:04 | XMS_ITS | Encounter Summary ---
Author Organization [facility] Address [address] [place] [address] Care Team Providers Care Municipal Firefighter Name Role Phone Jean Munoz MD Primary Care Provider Manny Rizzo MD Unavailable Afai Valle MD Unavailable Jesi Leong CLIPMAN Unavailable [phone] Encounter Details Date Type Department Care Team (Late st Contact Info) Description 12/02/2023 Patient Outreach [facility] [address] [place] [address] Jesi Leong CLIPMAN [address] [place] [phone] Social History Tobacco Use Types Packs/Day Years [...] place to sleep or slept in a half-way (including now)? Yes 07/15/2023 Interpersonal Safety Answer [...] Progress Notes * Jesi Leong LICSW - 12/02/2023 1615 EDT Images from the original note were not included. Primary Care Mental Health Integration Collaborative Care Mental Health Clinician Encounter This note is for clinical documentation purposes only. It does not indicate a scheduled appointment. 12/02/2023 Time Spent: 4 minutes in Direct and Indirect Collaborative Care Encounter Type: Text Message Encounter Contact: patient Collaborative Care Activities: Care management activities Summary of Care Provided: This handbook writer was scheduled to meet today with Liset at 1:15pm for a Care Management check in call. Liset texted to ask for this visit to be rescheduled due to having a difficult day with her narcolepsy symptoms. Plan: Agree to reschedule for December 27, 2023 at 11:30am via Phone. Validated Behavioral Health Measures 06/08/2023 12:36 07/15/2023 11:15 08/03/2023 13:35 08/24/2023 8:50 08/24/2023 8:51 08/24/2023 8:52 08/24/2023 8:54 Risk Totals: MFQ, PHQ-9A, PHQ-2/PHQ-9, and HEYDI-7 PHQ-2 2 3 3 2 2 PHQ-9 16 11 8 10 PHQ-9 Interpretation Moderately Severe Depression Moderate Depression Mild Depression Moderate Depression HEYDI-2 3 4 2 HEYDI-7 8 15 9 HEYDI-7 Interpretation Mild Anxiety Severe Anxiety Mild Anxiety documented in this encounter Plan of Treatment Upcoming Encounters Date Type Department Care Team (Late st Contact Info) Description 06/29/2024 14:15 EDT Office Visit [facility] [address] [place] [address] Jean Munoz MD [address] [place] [phone] documented as of this encounter Visit Diagnoses Not on filedocumented in this encounter Care Teams Municipal Firefighter Relationship Specialty Start Date End Date Jean Munoz MD [address] [place] [phone] PCP - General 12/31/08 Manny Rizzo MD [address] [place] [phone] 04/20/10 Afia Valle MD [address] [facility] [address] [place] [address] Care Team Radiation Oncology 07/02/21 Jesi Leong, [facility] [address] [place] [address] Behavioral Health High Pressure Boiler OperatorShredder Tender Care 10/19/22 01/23/24 documented as of this encounter
--- OUTSIDE RECORDS SUMMARY | 2024-06-10 07:04 | XMS_ITS | Encounter Summary ---
Author Organization [facility] Address [address] [place] [address] Care Team Providers Care Health Services Director Name Role Phone Jean Munoz MD Primary Care Provider Manny Rizzo MD Unavailable Afia Valle MD Unavailable [phone] Jesi Leong Unavailable Reason for Visit * Reason Comments Chronic Pain Encounter Details Date Type Department Care Team (Late st Contact Info) Description 10/06/2023 15:00 EST Telemedicine [facility] [address] [place] [address] Jean Munoz MD [address] [place] [phone] Chronic low back pain (Primary Dx); Chronic pain syndrome; Pain medication agreement; Chronic use of opiate for therapeutic purpose; Primary narcolepsy without cataplexy; Insomnia, unspecified type; Migraine without status migrainosus, not intractable, unspecified migraine type; Nausea; Restless legs syndrome; Impaired glucose tolerance; Allergic rhinitis, unspecified seasonality, unspecified trigger; Panlobular emphysema (HCC-CMS); Anxiety; Rosacea; Dry eyes Social History Tobacco Use Types Packs/Day Years Used Date Smoking Tobacco: Former Cigarettes 1.5 37 0 09/13/1975 - 09/13/2012 Smokeless Tobacco: Never Tobacco Cessation:Counseling Given: Not Answered Alcohol Use Standard Drinks/Week Comments No 0 [...] place to sleep or slept in a skilled nursing (including now)? Yes 07/15/2023 Interpersonal Safety Answer [...] Dispensed Refills Start Date End Da te cycloSPORINE (RESTASIS) 0.05 % ophthalmic emulsion Place 1 Drop into both eyes 2 times daily. 30 mL 10/06/2023 fexofenadine (JUDITH) 180 mg tabletIndications:All ergic rhinitis, unspecified seasonality, unspecified trigger TAKE 1 TABLET BY MOUTH EVERY DAY for allergies 90 Tablet 10/06/2023 hypromellose (ISOPTO TEARS) 0.5 % ophthalmic solutionIndications:D ry eyes Place 1 Drop into both eyes 5 times daily. 30 mL 10/06/2023 ONETOUCH DELICA PLUS LANCET 33 gauge misc Test 2 times daily. 200 Each 10/06/2023 blood glucose (ONETOUCH ULTRA TEST) test stripsIndications:Imp aired glucose tolerance TEST 2 TIMES DAILY. 200 Each 10/06/2023 SYMBICORT 80-4.5 mcg/actuation HFA aerosol inhaler inhaler Inhale 2 Puffs as directed 2 times daily. Use with spacer and rinse mouth after use. 10.2 g 10/06/2023 tiotropium bromide (SPIRIVA RESPIMAT) 2.5 mcg/actuation inhalation mist Inhale 2 Puffs as directed daily. 4 g 10/06/2023 busPIRone (BUSPAR) 15 mg tabletIndications:Anx iety Take 1 Tablet by mouth 3 times daily. 270 Tablet 10/06/2023 11/19/2023 doxycycline (VIBRA-TABS) 100 mg tabletIndications:Ros acea TAKE 1 TABLET BY MOUTH EVERY DAY for rosacea 90 Tablet 3 10/06/2023 11/19/2023 DULoxetine (CYMBALTA) 60 mg capsuleIndications:An xiety Take 2 Capsules by mouth daily. For depression, anxiety 180 Each 3 10/06/2023 11/19/2023 ipratropium-albuteroL (DUONEB) 0.5 mg-3 mg(2.5 mg base)/3 mL nebulizer solutionIndications:P anlobular emphysema (HCC-CMS) Take 3 mL by nebulization every 4 hours as needed for Wheezing. 3 mL 3 10/06/2023 10/08/2023 lancets Brand: One Touch [employer], check blood glucose twice daily. 100 Each 3 10/06/2023 10/08/2023 levalbuterol (XOPENEX HFA) 45 mcg/actuation inhalerIndications:Pa nlobular emphysema (HCC-CMS) INHALE TWO PUFFS BY MOUTH EVERY 4 HOURS NEEDED FOR WHEEZING/SHORTNESS OF BREATH DIRECTED 15 g 3 10/06/2023 11/19/2023 lidocaine (XYLOCAINE) 2 % solution 5 ML, mixed with 5 ml mylanta or maalox, swish and swallow for swallowing pain. 100 mL 2 10/06/2023 11/19/2023 methocarbamoL (ROBAXIN) 500 mg tabletIndications:Chr onic pain syndrome TAKE TWO TABLETS BY MOUTH DAILY AT BEDTIME 180 Tablet 1 10/06/2023 11/19/2023 montelukast (SINGULAIR) 10 mg tabletIndications:All ergic rhinitis, unspecified seasonality, unspecified trigger TAKE 1 TABLET BY MOUTH EVERY DAY for allergies 90 Tablet 3 10/06/2023 11/19/2023 omeprazole (PRILOSEC) 40 mg capsule Take 1 Capsule by mouth daily. 90 Capsule 3 10/06/2023 11/19/2023 ondansetron (ZOFRAN) 4 mg tabletIndications:Ladarius sea Take 1 Tablet by mouth every 8 hours as needed for Nausea. 30 Tablet 2 10/06/2023 11/19/2023 pregabalin (LYRICA) 300 mg capsuleIndications:Ch ronic pain syndrome,Chronic low back pain,Chronic use of opiate for therapeutic purpose,Pain medication agreement TAKE ONE CAPSULE BY MOUTH TWICE DAILY *daily max 2 capsules 180 Capsule 1 10/06/2023 11/19/2023 promethazine (PHENERGAN) 25 mg tabletIndications:Ladarius sea Take 1 Tablet by mouth every 6 hours as needed for Nausea. 30 Tablet 2 10/06/2023 11/19/2023 rOPINIRole (REQUIP) 2 mg tabletIndications:Res tless legs syndrome Take 1 Tablet by mouth at bedtime. 90 Tablet 3 10/06/2023 11/19/2023 SUMAtriptan (IMITREX) 100 mg tabletIndications:Victor Manuel bryan without status migrainosus, not intractable, unspecified migraine type TAKE 1 TABLET BY MOUTH AT ONSET OF MIGRAINE 9 Tablet 2 10/06/2023 10/21/2023 zolpidem (AMBIEN) 5 mg tabletIndications:Ins omnia, unspecified type Take 1 Tablet by mouth at bedtime. Daily Max: 5 mg 28 Tablet 5 10/06/2023 11/19/2023 HYDROcodone-acetamino phen (NORCO) 7.5-325 mg per tabletIndications:Chr onic pain syndrome,Chronic low back pain,Chronic use of opiate for therapeutic purpose,Pain medication agreement Take 1 Tablet by mouth every 6 hours for 28 days. For chronic pain. Daily Max: 4 Tablets 112 Tablet 10/07/2023 12/07/2023 HYDROcodone-acetamino phen (NORCO) 7.5-325 mg per tabletIndications:Chr onic pain syndrome,Chronic low back pain,Chronic use of opiate for therapeutic purpose,Pain medication agreement Take 1 Tablet by mouth every 6 hours for 28 days. For chronic pain. Daily Max: 4 Tablets 112 Tablet 12/02/2023 12/07/2023 HYDROcodone-acetamino phen (NORCO) 7.5-325 mg per tabletIndications:Chr onic pain syndrome,Chronic low back pain,Chronic use of opiate for therapeutic purpose,Pain medication agreement Take 1 Tablet by mouth every 6 hours for 28 days. For chronic pain. Daily Max: 4 Tablets 112 Tablet 11/04/2023 11/19/2023 methylphenidate HCl (RITALIN;METHYLIN) 10 mg tabletIndications:Lise granger narcolepsy without cataplexy Take 1 Tablet by mouth daily for 28 days. For nacolepsy Daily Max: 10 mg 28 Tablet 12/02/2023 12/07/2023 methylphenidate HCl (RITALIN;METHYLIN) 10 mg tabletIndications:Lise granger narcolepsy without cataplexy Take 1 Tablet by mouth daily for 28 days. For narcolepsy. Daily Max: 10 mg 28 Tablet 11/04/2023 11/19/2023 methylphenidate HCl (RITALIN;METHYLIN) 10 mg tabletIndications:Lise granger narcolepsy without cataplexy Take 1 Tablet by mouth daily for 28 days. For narcolepsy. Daily Max: 10 mg 28 Tablet 10/07/2023 10/07/2023 methylphenidate HCl (RITALIN;METHYLIN) 20 mg tabletIndications:Lise granger narcolepsy without cataplexy Take 1 Tablet by mouth 2 times daily for 28 days. Daily Max: 40 mg 56 Tablet 12/02/2023 12/07/2023 methylphenidate HCl (RITALIN;METHYLIN) 20 mg tabletIndications:Lise granger narcolepsy without cataplexy Take 2 Tablets by mouth daily for 28 days. For narcolepsy. Daily Max: 40 mg 56 Tablet 11/04/2023 11/19/2023 methylphenidate HCl (RITALIN;METHYLIN) 20 mg tabletIndications:Lise granger narcolepsy without cataplexy Take 2 Tablets by mouth daily for 28 days. For narcolepsy. Daily Max: 40 mg 56 Tablet 10/07/2023 10/07/2023 documented in this encounter Progress Notes * Satinder Montero LPN - 10/06/2023 1500 EST The [place] [employer] Monitoring System query has been completed. Hydrocodone-Acetaminophen 7.5-325 mg: Filled: 09/11/23 Quantity: 112 tabs for 28 days Methylphenidate 10 mg: Filled: 09/11/23 Quantity: 28 tabs for 28 days Methylphenidate 20 mg: Filled: 09/11/23 Quantity: 56 tabs for 28 days Zolpidem 5 mg: Filled: 08/27/23 Quantity: 28 tabs for 28 days SATINDER MONTERO LPN * Satinder Montero LPN - 10/06/2023 1500 EST The concept of ???Telemedicine?? has been described [...] copays, deductible or coinsurance for this service. SATINDER MONTERO LPN * Jean Munoz MD - 10/06/2023 1500 EST Primary Care Video Visit Assessment & Plan Diagnoses and all orders for this visit: Chronic low back pain Chronic pain syndrome Pain medication agreement Chronic use of opiate for therapeutic purpose - HYDROcodone-acetaminophen (NORCO) 7.5-325 mg per tablet - HYDROcodone-acetaminophen (NORCO) 7.5-325 mg per tablet - HYDROcodone-acetaminophen (NORCO) 7.5-325 mg per tablet - pregabalin (LYRICA) 300 mg capsule - methocarbamoL (ROBAXIN) 500 mg tablet Seems stable. She has better living situation now. Will renew medication. Recheck 3 months. Will need follow-up urine testing when feasible. Primary narcolepsy without cataplexy - methylphenidate HCl (RITALIN;METHYLIN) 20 mg tablet - methylphenidate HCl (RITALIN;METHYLIN) 20 mg tablet - methylphenidate HCl (RITALIN;METHYLIN) 20 mg tablet - methylphenidate HCl (RITALIN;METHYLIN) 10 mg tablet - methylphenidate HCl (RITALIN;METHYLIN) 10 mg tablet - methylphenidate HCl (RITALIN;METHYLIN) 10 mg tablet Stable, medications renewed. Insomnia, unspecified type - zolpidem (AMBIEN) 5 mg tablet Migraine without status migrainosus, not intractable, unspecified migraine type - SUMAtriptan (IMITREX) 100 mg tablet Nausea - promethazine (PHENERGAN) 25 mg tablet - ondansetron (ZOFRAN) 4 mg tablet Restless legs syndrome - rOPINIRole (REQUIP) 2 mg tablet Impaired glucose tolerance - blood glucose (ONETOUCH ULTRA TEST) test strips Allergic rhinitis, unspecified seasonality, unspecified trigger - montelukast (SINGULAIR) 10 mg tablet - fexofenadine (JUDITH) 180 mg tablet Panlobular emphysema (HCC-CMS) - levalbuterol (XOPENEX HFA) 45 mcg/actuation inhaler - ipratropium-albuteroL (DUONEB) 0.5 mg-3 mg(2.5 mg base)/3 mL nebulizer solution Anxiety - DULoxetine (CYMBALTA) 60 mg capsule - busPIRone (BUSPAR) 15 mg tablet Rosacea - doxycycline (VIBRA-TABS) 100 mg tablet Dry eyes - hypromellose (ISOPTO TEARS) 0.5 % ophthalmic solution Other orders - tiotropium bromide (SPIRIVA RESPIMAT) 2.5 mcg/actuation inhalation mist - SYMBICORT 80-4.5 mcg/actuation HFA aerosol inhaler inhaler - ONETOUCH DELICA PLUS LANCET 33 gauge misc - omeprazole (PRILOSEC) 40 mg capsule - lidocaine (XYLOCAINE) 2 % solution - lancets - cycloSPORINE (RESTASIS) 0.05 % ophthalmic emulsion Return in about 12 weeks (around 2023) for ROV phone/video for chronic pain follow-up. Patient education was direct. Barriers were assessed and addressed as needed. I spent a total of 25 minutes on the date of this encounter meeting with the patient and reviewing documentation/coordinating care as described in the above note. Unless otherwise noted, no procedures were performed at the time of the visit. Kalie Hutchins is a 62 y.o. female presenting with Chronic Pain HPI Oly is a 62-year-old female with COPD, lung cancer, impaired glucose tolerance with steroid-induced hyperglycemia, GERD, IBS, depression/anxiety, chronic pain on long-term opiate therapy, RLS, migraine headaches, KATJA, insomnia, narcolepsy here for follow-up. Now living in a [facility].Has been there about 2 weeks. Will be temporary. 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 Partner is [employer] tting a job in the area. Rent will be cheaper. Is close to grocery store. Does have food stamps. Needs medications renewed to new pharmacy. Wonders if she could take doxycycline tablets instead of capsules. Not smoking. Has not had RSV vaccine. Confirms that she had vaccines for influenza, COVID and pneumonia. Data reviewed this visit: problem list/past medical history, current medications, allergies, socialhistory, last visit note, and health maintenance items ROS - See HPI TELEMEDICINE VIDEO VISIT Today's visit was provided through telemedicine video conferencing: The location of the patient : Home The location of the provider: Clinic Exam Room The following staff and their role did participate in today's encounter visit: Jean Munoz MD Objective LMP 01/11/1987 Physical Exam alert, cooperative on video. Labs ordered last year not done including urine drug test, however she has been out of the area so this likely was not logistically feasible. documented in this encounter Plan of Treatment Upcoming Encounters Date Type Department Care Team (Late st Contact Info) Description 06/29/2024 14:15 EDT Office Visit [facility] [address] [place] [address] Jean Munoz MD [address] [place] [phone] documented as of this encounter Visit Diagnoses Diagnosis Chronic low back pain- Primary Lumbago Chronic pain syndrome Pain medication agreement Encounter for long-term (current) use of other medications Chronic use of opiate for therapeutic purpose Primary narcolepsy without cataplexy Insomnia, unspecified type Migraine without status migrainosus, not intractable, unspecified migraine type Nausea Nausea alone Restless legs syndrome Restless legs syndrome (RLS) Impaired glucose tolerance Impaired glucose tolerance test Allergic rhinitis, unspecified seasonality, unspecified trigger Panlobular emphysema (HCC-CMS) Other emphysema Anxiety Anxiety state, unspecified Rosacea Dry eyes Tear film insufficiency, unspecified Screening for osteoporosis- Primary Special screening [...] Discontinue Reason Start Date End Da te hydroxypropyl methylcellulose (ISOPTO TEARS) 0.5 % ophthalmic solution Place 1 Drop into both eyes 5 times daily. Reorder 12/10/2010 10/06/2023 cycloSPORINE (RESTASIS) 0.05 % ophthalmic emulsion Place 1 drop into both eyes 2 times daily. Reorder 11/11/2018 10/06/2023 omeprazole (PRILOSEC) 40 mg capsuleIndications:Gastr oesophageal reflux disease, esophagitis presence not specified Take 1 Cap by mouth daily. Reorder 08/30/2019 10/06/2023 ONETOUCH DELICA PLUS LANCET 33 gauge misc Reorder 07/10/2021 10/06/2023 montelukast (SINGULAIR) 10 mg tabletIndications:Allerg ic rhinitis, unspecified seasonality, unspecified trigger TAKE 1 TABLET BY MOUTH EVERY DAY for allergies Reorder 11/26/2021 10/06/2023 ONETOUCH ULTRA TEST test stripsIndications:Impair ed glucose tolerance TEST 2 TIMES DAILY. Reorder 11/06/2022 024 lancets Brand: One Touch [employer], check blood glucose twice daily. Reorder 11/06/2022 10/06/2023 doxycycline (VIBRA-TABS) 100 mg tabletIndications:Rosace a TAKE 1 TABLET BY MOUTH EVERY DAY for rosacea Reorder 11/09/2022 10/06/2023 ipratropium-albuteroL (DUONEB) 0.5 mg-3 mg(2.5 mg base)/3 mL nebulizer solutionIndications:Panl obular emphysema (HCC-CMS) Take 3 mL by nebulization every 4 hours as needed for Wheezing. Reorder 11/23/2022 10/06/2023 rOPINIRole (REQUIP) 2 mg tabletIndications:Restle ss legs syndrome TAKE 1 TABLET BY MOUTH NIGHTLY AT BEDTIME Reorder 01/04/2023 10/06/2023 lidocaine (XYLOCAINE) 2 % solution 5 ML, mixed with 5 ml mylanta or maalox, swish and swallow for swallowing pain. Reorder 01/19/2023 10/06/2023 busPIRone (BUSPAR) 15 mg tabletIndications:Anxiet y Take 1 Tablet by mouth 3 times daily. Reorder 03/25/2023 10/06/2023 DULoxetine (CYMBALTA) 60 mg capsuleIndications:Anxie ty Take 2 Capsules by mouth daily. For depression, anxiety Reorder 03/25/2023 10/06/2023 pregabalin (LYRICA) 300 mg capsuleIndications:Chron ic pain syndrome,Chronic low back pain,Chronic use of opiate for therapeutic purpose,Pain medication agreement TAKE ONE CAPSULE BY MOUTH TWICE DAILY *daily max 2 capsules Reorder 03/25/2023 10/06/2023 zolpidem (AMBIEN) 5 mg tabletIndications:Insomn ia, unspecified type Take 1 Tablet by mouth at bedtime. Daily Max: 5 mg Reorder 03/03/2023 10/06/2023 promethazine (PHENERGAN) 25 mg tabletIndications:Nausea Take 1 Tablet by mouth every 6 hours as needed for Nausea. Reorder 03/29/2023 10/06/2023 ondansetron (ZOFRAN) 4 mg tabletIndications:Nausea Take 1 Tablet by mouth every 8 hours as needed for Nausea. Reorder 06/15/2023 10/06/2023 levalbuterol (XOPENEX HFA) 45 mcg/actuation inhalerIndications:Panlo bular emphysema (HCC-CMS) INHALE TWO PUFFS BY MOUTH EVERY 4 HOURS NEEDED FOR WHEEZING/SHORTNESS OF BREATH DIRECTED Reorder 06/29/2023 10/06/2023 HYDROcodone-acetaminophe n (NORCO) 7.5-325 mg per tabletIndications:Chroni c pain syndrome,Chronic low back pain,Chronic use of opiate for therapeutic purpose,Pain medication agreement Take 1 Tablet by mouth every 6 hours for 28 days. For chronic pain. Daily Max: 4 Tablets Reorder 09/09/2023 09/29/2023 HYDROcodone-acetaminophe n (NORCO) 7.5-325 mg per tabletIndications:Chroni c pain syndrome,Chronic low back pain,Chronic use of opiate for therapeutic purpose,Pain medication agreement Take 1 Tablet by mouth every 6 hours for 28 days. For chronic pain. Daily Max: 4 Tablets Reorder 08/12/2023 09/29/2023 HYDROcodone-acetaminophe n (NORCO) 7.5-325 mg per tabletIndications:Chroni c pain syndrome,Chronic low back pain,Chronic use of opiate for therapeutic purpose,Pain medication agreement Take 1 Tablet by mouth every 6 hours for 28 days. For chronic pain. Daily Max: 4 Tablets Reorder 07/15/2023 09/29/2023 fexofenadine (JUDITH) 180 mg tabletIndications:Allerg ic rhinitis, unspecified seasonality, unspecified trigger TAKE 1 TABLET BY MOUTH EVERY DAY for allergies Reorder 07/15/2023 10/06/2023 methylphenidate HCl (RITALIN;METHYLIN) 10 mg tabletIndications:Primar y narcolepsy without cataplexy Take 1 Tablet by mouth daily for 28 days. For narcolepsy. Daily Max: 10 mg Reorder 09/09/2023 09/29/2023 methylphenidate HCl (RITALIN;METHYLIN) 10 mg tabletIndications:Primar y narcolepsy without cataplexy Take 1 Tablet by mouth daily for 28 days. For narcolepsy. Daily Max: 10 mg Reorder 08/12/2023 09/29/2023 methylphenidate HCl (RITALIN;METHYLIN) 10 mg tabletIndications:Primar y narcolepsy without cataplexy Take 1 Tablet by mouth daily for 28 days. For nacolepsy Daily Max: 10 mg Reorder 07/15/2023 09/29/2023 methylphenidate HCl (RITALIN;METHYLIN) 20 mg tabletIndications:Primar y narcolepsy without cataplexy Take 2 Tablets by mouth daily for 28 days. For narcolepsy. Daily Max: 40 mg Reorder 09/09/2023 09/29/2023 methylphenidate HCl (RITALIN;METHYLIN) 20 mg tabletIndications:Primar y narcolepsy without cataplexy Take 2 Tablets by mouth daily for 28 days. For narcolepsy. Daily Max: 40 mg Reorder 08/12/2023 09/29/2023 methylphenidate HCl (RITALIN;METHYLIN) 20 mg tabletIndications:Primar y narcolepsy without cataplexy Take 1 Tablet by mouth 2 times daily for 28 days. Daily Max: 40 mg Reorder 07/15/2023 09/29/2023 SUMAtriptan (IMITREX) 100 mg tabletIndications:Migrai ne without status migrainosus, not intractable, unspecified migraine type TAKE 1 TABLET BY MOUTH AT ONSET OF MIGRAINE Reorder 07/22/2023 10/06/2023 methocarbamoL (ROBAXIN) 500 mg tabletIndications:Chroni c pain syndrome TAKE TWO TABLETS BY MOUTH DAILY AT BEDTIME Reorder 07/22/2023 10/06/2023 SYMBICORT 80-4.5 mcg/actuation HFA aerosol inhaler inhaler Inhale 2 Puffs as directed 2 times daily. Use with spacer and rinse mouth after use. Reorder 08/23/2023 10/06/2023 tiotropium bromide (SPIRIVA RESPIMAT) 2.5 mcg/actuation inhalation mist Inhale 2 Puffs as directed daily. Reorder 08/23/2023 10/06/2023 documented as of this encounter Care Teams Health Services Director Relationship Specialty Start Date End Date Jean Munoz MD [address] [place] [phone] PCP - General 12/31/08 Manny Rizzo MD [address] [place] [phone] 04/20/10 Afia Valle MD [address] [place] [address] 2 [place] [phone] Care Team Radiation Oncology 07/02/21 Jesi Leong, [facility] [address] [place] [phone] Behavioral Health Geological Engineering TeacherCandy Cutter Machine Care 10/19/22 01/23/24 documented as of this encounter
--- OUTSIDE RECORDS SUMMARY | 2024-06-10 07:04 | XMS_ITS | Encounter Summary ---
Author Organization [facility] Address [address] [place] [address] Care Team Providers Care Bulb Farmworker Name Role Phone Jean Munoz MD Primary Care Provider Manny Rizzo MD Unavailable Afia Valle MD Unavailable Jesi Leong Unavailable Reason for Visit * Reason Onset Date Comments Pharmacy 12/28/2023 Medication Management 12/28/2023 Encounter Details Date Type Department Care Team (Late st Contact Info) Description 12/28/2023 Telephone [facility] [address] [place] [address] Jean Munoz MD [address] [place] [phone] Pharmacy; Medication Management Social History Tobacco Use Types Packs/Day Years [...] PHQ-2 Answer Date Recorded PHQ-2 SUBTOTAL 3 12/27/2023 Hunger Vital Sign Answer Date Recorded Within [...] encounter Miscellaneous Notes * Telephone Encounter - Candice Dickens RN - 12/28/2023 1306 EDT Spoke to pharmacist at [facility], Advised to look at new scripts to answer questions. No further concerns. Candice Dickens RN 12/28/2023 13:06 * Telephone Encounter - Sahra Ibarra - 12/28/2023 1017 EDT Reason for Call: Pharmacy and Medication Management Summary/Symptoms: Asking for clarification of directions for the pt's Sumatriptan & Lidocaine. Asking if the pt is taking both Zofran & Phenergan. Onset and Duration: N/A Appt offered? N/A Sahra Ibarra 12/28/2023 10:19 documented in this encounter Plan of Treatment Upcoming Encounters Date Type Department Care Team (Late st Contact Info) Description 06/29/2024 14:15 EDT Office Visit [facility] [address] [place] [address] Jean Munoz MD [address] [place] [phone] documented as of this encounter Visit Diagnoses Not on filedocumented in this encounter Care Teams Bulb Farmworker Relationship Specialty Start Date End Date Jean Munoz MD [address] [place] [phone] PCP - General 12/31/08 Manny Rizzo MD [address] [place] [address] 04/20/10 Afia Valle MD [address] [place] [address] 2 [place] [phone] MD Care Team Radiation Oncology 07/02/21 Jesi Leong, [facility] [address] [place] [phone] Behavioral Health Apple Packing HeaderAir Pollution Compliance Inspector Care 10/19/22 01/23/24 documented as of this encounter
--- OUTSIDE RECORDS SUMMARY | 2024-06-10 07:04 | XMS_ITS | Encounter Summary ---
Author Organization [facility] Address [address] [place] [address] Care Team Providers Care Card Game Operator Name Role Phone Jean Munoz MD Primary Care Provider Manny Rizzo MD Unavailable Afia Valle MD Unavailable Jesi Leong Unavailable [phone] Encounter Details Date Type Department Care Team (Late st Contact Info) Description 09/23/2023 Documentation Visit [facility] Radiation Oncology - [place] [address] [place], [place] [phone] Jorge Rivas Social History Tobacco Use Types Packs/Day Years [...] as of this encounter Progress Notes * Jorge Rivas - 09/23/2023 1314 EST WARD SUPERVISOR NOTE: Outreach to Liset by phone. She met with Caroline Edwards NP in follow up today. Liset is struggling with homelessness. She is in a hotel tonight but it runs out tomorrow. Her plan is to go to [facility] tomorrow to reapply, she told Caroline she is not allowed to apply sooner. Case discussion with FADUMO Miguel who is providing brief counseling support. left for Liset. documented in this encounter Plan of Treatment Upcoming Encounters Date Type Department Care Team (Late st Contact Info) Description 06/29/2024 14:15 EDT [facility] [address] [place] [address] Jean Munoz MD [address] [place] [phone] documented as of this encounter Visit Diagnoses Not on filedocumented in this encounter Care Teams Card Game Operator Relationship Specialty Start Date End Date Jean Munoz MD [address] [place] [phone] PCP - General 12/31/08 Manny Rizzo MD [facility] [place] [phone] 04/20/10 Afia Valle MD [address] [place] [address] [address] [place] [phone] Care Team Radiation Oncology 07/02/21 Jesi Leong LICSW [address] [place] [phone] Behavioral Health Senior Technical Support AnalystIron Installer Care 10/19/22 01/23/24 documented as of this encounter
--- OUTSIDE RECORDS SUMMARY | 2024-06-10 07:04 | XMS_ITS | Encounter Summary ---
Author Organization [facility] Address [address] [place] [address] Care Team Providers Care Ultrasound Technol Name Role Phone Jean Munoz MD Primary Care Provider Manny Rizzo MD Unavailable Afia Valle MD Unavailable Jesi Leong Unavailable Reason for Visit * Reason Onset Date Comments Medication Management 11/19/2023 Encounter Details Date Type Department Care Team (Late st Contact Info) Description 11/19/2023 Telephone [facility] [address] [place] [address] Jean Munoz MD [address] [place] [address] Medication Management Social History Tobacco Use Types [...] place to sleep or slept in a long-term (including now)? Yes 07/15/2023 Interpersonal Safety Answer [...] Dispensed Refills Start Date End Da te rOPINIRole (REQUIP) 2 mg tabletIndications:Rest less legs syndrome Take 1 Tablet by mouth at bedtime. 90 Tablet 3 11/21/2023 pregabalin (LYRICA) 300 mg capsuleIndications:Chr onic pain syndrome,Chronic low back pain,Chronic use of opiate for therapeutic purpose,Pain medication agreement TAKE ONE CAPSULE BY MOUTH TWICE DAILY *daily max 2 capsules 180 Capsule 1 01/04/2024 omeprazole (PRILOSEC) 40 mg capsule Take 1 Capsule by mouth daily. 90 Capsule 3 11/19/2023 montelukast (SINGULAIR) 10 mg tabletIndications:Nakul rgic rhinitis, unspecified seasonality, unspecified trigger TAKE 1 TABLET BY MOUTH EVERY DAY for allergies 90 Tablet 3 11/19/2023 DULoxetine (CYMBALTA) 60 mg capsuleIndications:Anx iety Take 2 Capsules by mouth daily. For depression, anxiety 180 Each 3 11/19/2023 doxycycline (VIBRA-TABS) 100 mg tabletIndications:Elaine cea TAKE 1 TABLET BY MOUTH EVERY DAY for rosacea 90 Tablet 3 11/19/2023 busPIRone (BUSPAR) 15 mg tabletIndications:Anxi ety Take 1 Tablet by mouth 3 times daily. 270 Tablet 3 11/19/2023 zolpidem (AMBIEN) 5 mg tabletIndications:Inso mnia, unspecified type Take 1 Tablet by mouth at bedtime. Daily Max: 5 mg 28 Tablet 5 11/21/2023 05/10/2024 SUMAtriptan (IMITREX) 100 mg tabletIndications:Migr lu without status migrainosus, not intractable, unspecified migraine type TAKE 1 TABLET BY MOUTH AT ONSET OF MIGRAINE 9 Tablet 2 11/21/2023 12/22/2023 promethazine (PHENERGAN) 25 mg tabletIndications:Naus ea Take 1 Tablet by mouth every 6 hours as needed for Nausea. 30 Tablet 2 11/21/2023 02/28/2024 ondansetron (ZOFRAN) 4 mg tabletIndications:Naus ea Take 1 Tablet by mouth every 8 hours as needed for Nausea. 30 Tablet 2 11/21/2023 12/23/2023 methylphenidate HCl (RITALIN;METHYLIN) 20 mg tabletIndications:Prim sheila narcolepsy without cataplexy Take 2 Tablets by mouth daily for 28 days. For narcolepsy. Daily Max: 40 mg 56 Tablet 12/03/2023 12/07/2023 methylphenidate HCl (RITALIN;METHYLIN) 10 mg tabletIndications:Prim sheila narcolepsy without cataplexy Take 1 Tablet by mouth daily for 28 days. For narcolepsy. Daily Max: 10 mg 28 Tablet 12/03/2023 12/07/2023 methocarbamoL (ROBAXIN) 500 mg tabletIndications:Retail Stocker majo pain syndrome TAKE TWO TABLETS BY MOUTH DAILY AT BEDTIME 180 Tablet 1 11/21/2023 05/25/2024 HYDROcodone-acetaminop hen (NORCO) 7.5-325 mg per tabletIndications:Retail Stocker majo pain syndrome,Chronic low back pain,Chronic use of opiate for therapeutic purpose,Pain medication agreement Take 1 Tablet by mouth every 6 hours for 28 days. For chronic pain. Daily Max: 4 Tablets 112 Tablet 12/03/2023 12/03/2023 lidocaine (XYLOCAINE) 2 % solution 5 ML, mixed with 5 ml mylanta or maalox, swish and swallow for swallowing pain. 100 mL 2 11/19/2023 12/22/2023 levalbuterol (XOPENEX HFA) 45 mcg/actuation inhalerIndications:Jarquin lobular emphysema (HCC-CMS) INHALE TWO PUFFS BY MOUTH EVERY 4 HOURS NEEDED FOR WHEEZING/SHORTNESS OF BREATH DIRECTED 15 g 3 11/19/2023 03/30/2024 documented in this encounter Miscellaneous Notes * Telephone Encounter - Jean Munoz MD - 11/21/2023 1035 EDT Rx sent. * Telephone Encounter - Lluvia Hsieh RN - 11/19/2023 1107 EST Images from the original note were not included. Requested Prescriptions Pending Prescriptions Disp Refills benzonatate (TESSALON) 100 mg capsule 80 Capsule 3 Sig: Take 1 Capsule by mouth 3 times daily as needed for Cough. busPIRone (BUSPAR) 15 mg tablet 270 Tablet 3 Sig: Take 1 Tablet by mouth 3 times daily. doxycycline (VIBRA-TABS) 100 mg tablet 90 Tablet 3 Sig: TAKE 1 TABLET BY MOUTH EVERY DAY for rosacea DULoxetine (CYMBALTA) 60 mg capsule 180 Each 3 Sig: Take 2 Capsules by mouth daily. For depression, anxiety HYDROcodone-acetaminophen (NORCO) 7.5-325 mg per tablet 112 Tablet 0 Sig: Take 1 Tablet by mouth every 6 hours for 28 days. For chronic pain. Daily Max: 4 Tablets levalbuterol (XOPENEX HFA) 45 mcg/actuation inhaler 15 g 3 Sig: INHALE TWO PUFFS BY MOUTH EVERY 4 HOURS NEEDED FOR WHEEZING/SHORTNESS OF BREATH DIRECTED lidocaine (XYLOCAINE) 2 % solution 100 mL 2 Si ML, mixed with 5 ml mylanta or maalox, swish and swallow for swallowing pain. methocarbamoL (ROBAXIN) 500 mg tablet 180 Tablet 1 Sig: TAKE TWO TABLETS BY MOUTH DAILY AT BEDTIME methylphenidate HCl (RITALIN;METHYLIN) 10 mg tablet 28 Tablet 0 Sig: Take 1 Tablet by mouth daily for 28 days. For narcolepsy. Daily Max: 10 mg methylphenidate HCl (RITALIN;METHYLIN) 20 mg tablet 56 Tablet 0 Sig: Take 2 Tablets by mouth daily for 28 days. For narcolepsy. Daily Max: 40 mg montelukast (SINGULAIR) 10 mg tablet 90 Tablet 3 Sig: TAKE 1 TABLET BY MOUTH EVERY DAY for allergies omeprazole (PRILOSEC) 40 mg capsule 90 Capsule 3 Sig: Take 1 Capsule by mouth daily. ondansetron (ZOFRAN) 4 mg tablet 30 Tablet 2 Sig: Take 1 Tablet by mouth every 8 hours as needed for Nausea. pregabalin (LYRICA) 300 mg capsule 180 Capsule 1 Sig: TAKE ONE CAPSULE BY MOUTH TWICE DAILY *daily max 2 capsules promethazine (PHENERGAN) 25 mg tablet 30 Tablet 2 Sig: Take 1 Tablet by mouth every 6 hours as needed for Nausea. rOPINIRole (REQUIP) 2 mg tablet 90 Tablet 3 Sig: Take 1 Tablet by mouth at bedtime. SUMAtriptan (IMITREX) 100 mg tablet 9 Tablet 2 zolpidem (AMBIEN) 5 mg tablet 28 Tablet 5 Sig: Take 1 Tablet by mouth at bedtime. Daily Max: 5 mg [facility] Last Refill Date: tessalon not filled by this office, various dates- pharmacy change. Last Visit Date: 10/06/23 Next Non-Acute Visit Date Scheduled with Care Team: Yes. 12/02/2023 Last refills: methylpheindate- 11/05, norco-11/05, ambien 10/06 LLUVIA HSIEH RN 11/19/2023 11:07 * Telephone Encounter - Deidre Patel - 11/19/2023 0953 EST Reason for Call: Medication Management Summary/Symptoms: Patient transferring all her medication to [facility]. Onset and Duration? Benzonatate, buspirone, doxycycline, duloxetine, hydrocodone, lidocaine, methocarbamol, methylphenidate 10 & 20 mg, Montelukast, omeprazole, ondansetron, pregabalin, promethazine, ropinirole, sumatriptan, xopenex, zolpidem Appointment Offered? N/A Deidre Patel 11/19/2023 10:33 documented in this encounter Plan of Treatment Upcoming Encounters Date Type Department Care Team (Late st Contact Info) Description 06/29/2024 14:15 EDT Office Visit [facility] [address] [place] [address] Jean Munoz MD [address] [place] [address] documented as of this encounter Visit Diagnoses Diagnosis Anxiety Anxiety state, unspecified Rosacea Chronic pain syndrome Chronic low back pain Lumbago Chronic use of opiate for therapeutic purpose Pain medication agreement Encounter for long-term (current) use of other medications Panlobular emphysema (HCC-CMS) Other emphysema Primary narcolepsy without cataplexy Allergic rhinitis, unspecified seasonality, unspecified trigger Nausea Nausea alone Restless legs syndrome Restless legs syndrome (RLS) Migraine without status migrainosus, not intractable, unspecified migraine type Insomnia, unspecified type Screening for osteoporosis- Primary Special screening for osteoporosis Primary narcolepsy without cataplexy Chronic pain syndrome Chronic low back pain Lumbago Chronic use of opiate for therapeutic purpose Pain medication agreement Encounter for long-term (current) use of other medications Screen for colon cancer Special screening for malignant neoplasms, colon documented in this encounter Discontinued Medications Medication Sig Discontinue Reason Start Date End Da te omeprazole (PRILOSEC) 40 mg capsule Take 1 Capsule by mouth daily. Reorder 10/06/2023 11/19/2023 montelukast (SINGULAIR) 10 mg tabletIndications:Aller gic rhinitis, unspecified seasonality, unspecified trigger TAKE 1 TABLET BY MOUTH EVERY DAY for allergies Reorder 10/06/2023 11/19/2023 lidocaine (XYLOCAINE) 2 % solution 5 ML, mixed with 5 ml mylanta or maalox, swish and swallow for swallowing pain. Reorder 10/06/2023 11/19/2023 levalbuterol (XOPENEX HFA) 45 mcg/actuation inhalerIndications:Panl obular emphysema ([facility]) INHALE TWO PUFFS BY MOUTH EVERY 4 HOURS NEEDED FOR WHEEZING/SHORTNESS OF BREATH DIRECTED Reorder 10/06/2023 11/19/2023 DULoxetine (CYMBALTA) 60 mg capsuleIndications:Anxi ety Take 2 Capsules by mouth daily. For depression, anxiety Reorder 10/06/2023 11/19/2023 doxycycline (VIBRA-TABS) 100 mg tabletIndications:Rosac ea TAKE 1 TABLET BY MOUTH EVERY DAY for rosacea Reorder 10/06/2023 11/19/2023 busPIRone (BUSPAR) 15 mg tabletIndications:Anxie ty Take 1 Tablet by mouth 3 times daily. Reorder 10/06/2023 11/19/2023 methylphenidate HCl (RITALIN;METHYLIN) 20 mg tabletIndications:Prima ry narcolepsy without cataplexy Take 2 Tablets by mouth daily for 28 days. For narcolepsy. Daily Max: 40 mg Reorder 11/04/2023 11/19/2023 methylphenidate HCl (RITALIN;METHYLIN) 10 mg tabletIndications:Prima ry narcolepsy without cataplexy Take 1 Tablet by mouth daily for 28 days. For narcolepsy. Daily Max: 10 mg Reorder 11/04/2023 11/19/2023 HYDROcodone-acetaminoph en (NORCO) 7.5-325 mg per tabletIndications:Chron ic pain syndrome,Chronic low back pain,Chronic use of opiate for therapeutic purpose,Pain medication agreement Take 1 Tablet by mouth every 6 hours for 28 days. For chronic pain. Daily Max: 4 Tablets Reorder 11/04/2023 11/19/2023 zolpidem (AMBIEN) 5 mg tabletIndications:Insom yesi, unspecified type Take 1 Tablet by mouth at bedtime. Daily Max: 5 mg Reorder 10/06/2023 11/19/2023 rOPINIRole (REQUIP) 2 mg tabletIndications:Restl ess legs syndrome Take 1 Tablet by mouth at bedtime. Reorder 10/06/2023 11/19/2023 promethazine (PHENERGAN) 25 mg tabletIndications:Nause a Take 1 Tablet by mouth every 6 hours as needed for Nausea. Reorder 10/06/2023 11/19/2023 pregabalin (LYRICA) 300 mg capsuleIndications:Retail Stocker majo pain syndrome,Chronic low back pain,Chronic use of opiate for therapeutic purpose,Pain medication agreement TAKE ONE CAPSULE BY MOUTH TWICE DAILY *daily max 2 capsules Reorder 10/06/2023 11/19/2023 ondansetron (ZOFRAN) 4 mg tabletIndications:Nause a Take 1 Tablet by mouth every 8 hours as needed for Nausea. Reorder 10/06/2023 11/19/2023 methocarbamoL (ROBAXIN) 500 mg tabletIndications:Chron ic pain syndrome TAKE TWO TABLETS BY MOUTH DAILY AT BEDTIME Reorder 10/06/2023 11/19/2023 SUMAtriptan (IMITREX) 100 mg tabletIndications:Migra ine without status migrainosus, not intractable, unspecified migraine type TAKE 1 TABLET BY MOUTH AT ONSET OF MIGRAINE Reorder 10/21/2023 11/19/2023 documented as of this encounter Care Teams Ultrasound Technol Relationship Specialty Start Date End Date Jean Munoz MD [address] [place] [address] PCP - General 12/31/08 Manny Rizzo MD [address] [place] [phone] 04/20/10 Afia Valle MD [address] [place] [address], [address] [place] [phone] MD Care Team Radiation Oncology 07/02/21 Jesi Leong, [facility] [address] [place] [address] Behavioral Health Metallurgical TechnicianTorpedo Worker Care 10/19/22 01/23/24 documented as of this encounter
--- OUTSIDE RECORDS SUMMARY | 2024-06-10 07:04 | XMS_ITS | Encounter Summary ---
Author Organization [facility] Address [address] [place] [address] Care Team Providers Care Frame Maker Name Role Phone Jean Munoz MD Primary Care Provider Manny Rizzo MD Unavailable Afia Valle MD Unavailable Jesi Leong DIRECTOR NURSES' REGISTRY Unavailable Encounter Details Date Type Department Care Team (Late st Contact Info) Description 09/21/2023 Patient Outreach [facility] [address] [place] [address] Jesi Leong DIRECTOR NURSES' REGISTRY [address] [place] [address] Social History Tobacco Use Types [...] Progress Notes * Jesi Leong LICSW - 09/21/2023 1119 EST Images from the original note were not included. Primary Care Mental Health Integration Collaborative Care Mental Health Clinician Encounter 09/21/2023 Time Spent: 4 minutes in Direct and Indirect Collaborative Care Encounter Type: Telephone Encounter Contact: patient Collaborative Care Activities: Outreach/engagement Summary of Care Provided: This proposal lead writer was scheduled to meet with Liset on this date by phone at 11:15am. Reached Liset who shared they've been moved again, now staying at [facility]. She and partner are walking to the grocery store and asks to reschedule. Validated Behavioral Health Measures 06/08/2023 12:36 07/15/2023 11:15 08/03/2023 13:35 08/24/2023 8:50 08/24/2023 8:51 08/24/2023 8:52 08/24/2023 8:54 Risk Totals: MFQ, PHQ-9A, PHQ-2/PHQ-9, and HEYDI-7 PHQ-2 2 3 3 2 2 PHQ-9 16 11 8 10 PHQ-9 Interpretation Moderately Severe Depression Moderate Depression Mild Depression Moderate Depression HEYDI-2 3 4 2 HEYDI-7 8 15 9 HEYDI-7 Interpretation Mild Anxiety Severe Anxiety Mild Anxiety Plan: Agree to reschedule for October 06, 2023 at 1:30pm by phone. documented in this encounter Plan of Treatment Upcoming Encounters Date Type Department Care Team (Late st Contact Info) Description 06/29/2024 14:15 EDT Office Visit [facility] [address] [place] [address] Jean Munoz MD [address] [place] [address] documented as of this encounter Visit Diagnoses Not on filedocumented in this encounter Care Teams Frame Maker Relationship Specialty Start Date End Date Jean Munoz MD [address] [place] [address] PCP - General 12/31/08 Manny Rizzo MD [address] [place] [phone] 04/20/10 Afia Valle MD [address] [place] [address], [address] [place] [phone] Care Team Radiation Oncology 07/02/21 Jesi Leong, [facility] [address] [place] [address] Behavioral Health Metal TesterOptical Mechanic Apprentice Care 10/19/22 01/23/24 documented as of this encounter
--- OUTSIDE RECORDS SUMMARY | 2024-06-10 07:04 | XMS_ITS | Encounter Summary ---
Author Organization [facility] Address [address] [place] [address] Care Team Providers Care Long Distance Operator Name Role Phone Jean Munoz MD Primary Care Provider Manny Rizzo MD Unavailable Afia Valle MD Unavailable Jesi Leong Unavailable [phone] Reason for Visit * Reason Onset Date Comments Appointment Related 12/01/2023 Encounter Details Date Type Department Care Team (Late st Contact Info) Description 12/01/2023 Telephone [facility] [address] [place] [address] Jean Munoz MD [address] [place] [address] Appointment Related Social History Tobacco Use Types Packs/Day Years [...] place to sleep or slept in a fdc (including now)? Yes 07/15/2023 Interpersonal Safety Answer [...] Yes 05/26/2018 Cognitive Status Response Date of Assess ent Because of a physical, menta l, or emotional condition, does this person have serious difficulty concentrating, remembering, or making decisions? Yes 05/26/2018 documented as of this encounter Miscellaneous Notes * Telephone Encounter - Dot Patel - 12/01/2023 1437 EDT Reason for Call: Appointment Related Summary/Symptoms: Outgoing call to patient to confirm appointment 12/22. Video. Confirmed with patient. Onset and Duration? N/a Appointment Offered? No Dot Patel 12/01/2023 14:37 * Telephone Encounter - Antionette Nichols - 12/01/2023 1409 EDT Patient called to schedule a med check. Are you able to squeeze her in somewhere prior to 12/29? documented in this encounter Plan of Treatment Upcoming Encounters Date Type Department Care Team (Late st Contact Info) Description 06/29/2024 14:15 EDT Office Visit [facility] [address] [place], [place] [phone] Jean Munoz MD [address] [place] [phone] documented as of this encounter Visit Diagnoses Not on filedocumented in this encounter Care Teams Long Distance Operator Relationship Specialty Start Date End Date Jean Munoz MD [address] [place] [address] PCP - General 12/31/08 Manny Rizzo MD [address] [place] [address] 04/20/10 Afia Valle MD [address] [facility], [address] [place] [phone] MD Care Team Radiation Oncology 07/02/21 Jesi Leong, [facility] [address] [place] [address] Behavioral Health Mental Health TechWant Ad Supervisor Care 10/19/22 01/23/24 documented as of this encounter
--- OUTSIDE RECORDS SUMMARY | 2024-06-10 07:04 | XMS_ITS | Encounter Summary ---
Author Organization [facility] Address [address] [place] [address] Care Team Providers Care Assistant Professor Of Surgery Name Role Phone Jean Munoz MD Primary Care Provider Manny Rizzo MD Unavailable Afia Valle MD Unavailable [phone] Jesi Leong OFFSET LABEL REWINDER Unavailable [phone] Reason for Visit * Reason Comments Anxiety Depression Encounter Details Date Type Department Care Team (Late st Contact Info) Description 12/27/2023 11:30 EDT Telemedicine [facility] [address] [place] [address] Jesi Leong OFFSET LABEL REWINDER [address] [place] [address] Anxiety (Primary Dx); Moderate episode of recurrent major depressive disorder ([facility]) Social History Tobacco Use Types Packs/Day Years [...] this encounter Progress Notes * Jesi Leong, [facility] - 12/27/2023 1130 EDT Images from the original note were not included. Primary Care Mental Health Integration Collaborative Care Mental Health Clinician Encounter 12/27/2023 Time Spent: 23 minutes in Direct and Indirect Collaborative Care Encounter Type: Telephone Encounter Contact: patient Collaborative Care Activities: Care management activities Summary of Care Provided: Care Mgmt phone check in.with Liset as planned. Liset shares they moved into a small apartment two weeks ago, [facility]. Will able to continue working with same employer, could walk there from home. Updated PHQ/HEYDI. Liset denies any plan or intent to end her life, passive suicidal ideation persists. Anxiety has increased. Shares make sure we got everything we need fears. Financial stress. Hasn't met neighbors yet. Will home every evening for dinner. Was able to get bed as her irene size bed instorage too big to move. Discussed future care, Liset would like to find a community clinician to support her around anxiety and mood themes. Biweekly. No gender preference. Video preferred due to transportation barriers. Sent Liset via [employer] and text message as agreed. Two warm leads Brie Cristina [facility] and Alexi Shore [facility]. Encouraged Liset to reach them directly - Brie via her web portal and Alexi via his e-mail or web portal. Plan: Next visit for Care Mgmt January 23 at 11:30am by phone, likely close w/ [facility] thereafter. Validated Behavioral Health Measures 07/15/2023 11:15 08/03/2023 13:35 08/24/2023 8:50 08/24/2023 8:51 08/24/2023 8:52 08/24/2023 8:54 12/27/2023 11:33 Risk Totals: MFQ, PHQ-9A, PHQ-2/PHQ-9, and HEYDI-7 PHQ-2 2 3 3 2 2 3 PHQ-9 16 11 8 10 12 PHQ-9 Interpretation Moderately Severe Depression Moderate Depression Mild Depression Moderate Depression Moderate Depression HEYDI-2 4 2 5 HEYDI-7 15 9 16 HEYDI-7 Interpretation Severe Anxiety Mild Anxiety Severe Anxiety documented in this encounter Plan of Treatment Upcoming Encounters Date Type Department Care Team (Late st Contact Info) Description 06/29/2024 14:15 EDT Office Visit [facility] [address] [place], [place] [phone] Jean Munoz MD [address] [place] [address] documented as of this encounter Visit Diagnoses Diagnosis Anxiety- Primary Anxiety state, unspecified Moderate episode of recurrent major depressive disorder ([facility]) Screening for osteoporosis- Primary Special screening for osteoporosis Primary narcolepsy without cataplexy Chronic pain syndrome Chronic low back pain Lumbago Chronic use of opiate for therapeutic purpose Pain medication agreement Encounter for long-term (current) use of other medications Screen for colon cancer Special screening for malignant neoplasms, colon documented in this encounter Care Teams Assistant Professor Of Surgery Relationship Specialty Start Date End Date Jean Munoz MD [address] [place] [phone] PCP - General 12/31/08 Manny Rizzo MD [address] [place] [address] 04/20/10 Afia Valle MD [address] [place] [address] [address] [place] [phone] Care Team Radiation Oncology 07/02/21 Jesi Leong LICSW [address] [place] [phone] Behavioral Health Rock SingerReproduction Production Manager Care 10/19/22 01/23/24 documented as of this encounter
--- OUTSIDE RECORDS SUMMARY | 2024-06-10 07:04 | XMS_ITS | Encounter Summary ---
Author Organization [facility] Address [address] [place] [address] Care Team Providers Care Manager Enterprise Name Role Phone Jean Munzo MD Primary Care Provider Manny Rizzo MD Unavailable Afia Valle MD Unavailable Jesi Leong Unavailable Reason for Visit * Reason Comments Coordination Of Care Encounter Details Date Type Department Care Team (Late st Contact Info) Description 09/20/2023 Community Health Team [facility] [address], [address] [place], [place] [phone] [facility] [address] [place] [id number] Social History Tobacco Use Types Packs/Day Years [...] as of this encounter Progress Notes * Caroline Mcneil - 09/20/2023 1538 EST ..PHSO Supervisor [employer]ing [employer] Date: 09/20/23 Referred by: Marcy Quinonez PCP: Jean Munoz MD Encounter type: Phone Reason for Referral: Housing Notes: This Supervisor [employer]ing [employer] (RC) called patient on 09/20/23 RC spoke with a family member and left their phone for patient to call back. Plan / Action Items: RC to call patient again in one week if she doesn't call back before then Caroline Mcneil Supervisor [employer]ing Shop 09/20/23 15:38 documented in this encounter Plan of Treatment Upcoming Encounters Date Type Department Care Team (Late st Contact Info) Description 06/29/2024 14:15 EDT Office Visit [facility] [address] [place] [address] Jean Munoz MD [address] [place] [address] documented as of this encounter Visit Diagnoses Not on filedocumented in this encounter Care Teams Manager Enterprise Relationship Specialty Start Date End Date Jean Munoz MD [address] [place] [address] PCP - General 12/31/08 Manny Rizzo MD [address] [place] [phone] 04/20/10 Afia Valle MD [address] [place] [address] 2 [place] [address] Care Team Radiation Oncology 07/02/21 Jesi Leong, [facility] [address] [place] [address] Behavioral Health Long Lines OperatorUtility Locator Care 10/19/22 01/23/24 documented as of this encounter
--- OUTSIDE RECORDS SUMMARY | 2024-06-10 07:04 | XMS_ITS | Encounter Summary ---
Author Organization [facility] Address [address] [place] [address] Care Team Providers Care Beveling And Edging Machine Operator Name Role Phone Jean Munoz MD Primary Care Provider Manny Rizzo MD Unavailable Afia Valle MD Unavailable Jesi Leong Unavailable Reason for Referral * Referral (Routine/Next Available) - Specialty Report Received Specialty Diagnoses / Procedures [facility] Referred To Contact Multidisciplinary Diagnoses Homeless Jean Munoz MD [address] [place] [address] [facility] Community Health Team [address] [facility], [address] [place] [address] Referral ID Status Reason Start Date Expiration Date Visits Requested Visits Authorized [id number] Specialty Report Received Specialty Services Required 3 1 1 Question Answer Reason for Request: homeless Comments Liset would like to be re-referred to [facility] Social Work / Featherer in context of their continued homelessness - they hit one year on Aug 20. ??She is now back in [facility] and feels resources are not present to help her navigate all of this. ??Can you send new referral please? [facility] Ref[facility] # [phone]. Thank you. Encounter Details Date Type Department Care Team (Late st Contact Info) Description 08/27/2023 Orders Only [facility] [address] [place] [address] Jean Munoz MD [address] [place] [address] Homeless (Primary Dx) Social History Tobacco Use Types [...] Yes 05/26/2018 documented as of this encounter Plan of Treatment Upcoming Encounters Date Type Department Care Team (Late st Contact Info) Description 06/29/2024 14:15 EDT Office Visit [facility] [address], [place] [phone] Jean Munoz MD [address] [place] [phone] Scheduled Referrals Name Type Priority Associated Diagnoses Order Schedule AMB CONS/FOLLOW UP OUTPATIENT CARE MANAGEMENT - [facility] Outpatient Referral Routine/Next Available Homeless Expected: 09/03/2023 (Approximate), Expires: 08/27/2024 documented as of this encounter Visit Diagnoses Diagnosis Homeless- Primary Lack of housing Screening for osteoporosis- Primary Special screening for osteoporosis Primary narcolepsy without cataplexy Chronic pain syndrome Chronic low back pain Lumbago Chronic use of opiate for therapeutic purpose Pain medication agreement Encounter for long-term (current) use of other medications Screen for colon cancer Special screening for malignant neoplasms, colon documented in this encounter Care Teams Beveling And Edging Machine Operator Relationship Specialty Start Date End Date Jean Munoz MD [address] [place] [address] PCP - General 12/31/08 Manny Rizzo MD [address] [place] [address] 04/20/10 Afia Valle MD [address] [place] [address] 2 [place] [phone] Care Team Radiation Oncology 07/02/21 Jesi Leong, [facility] [address] [place] [address] Behavioral Health Digital Learning Platforms ManagerMillwright Helper Care 10/19/22 01/23/24 documented as of this encounter
--- OUTSIDE RECORDS SUMMARY | 2024-06-10 07:04 | XMS_ITS | Encounter Summary ---
Author Organization [facility] Address [address] [place] [address] Care Team Providers Care Brusher Name Role Phone Jean Munoz MD Primary Care Provider Manny Rizzo MD Unavailable Afia Valle MD Unavailable Jesi Leong Unavailable Reason for Referral * Radiology Services (Routine/Next Available) - Authorization Not Required Specialty Diagnoses / Procedures Referred By [facility] Referred To Contact Diagnoses Malignant neoplasm of upper lobe, right bronchus or lung (HCC-CMS) Procedures CT CHEST W CONTRAST Caroline Edwards, NEWSPAPER CARRIER [address] [facility], [address] [place] [address] [facility] Referral ID Status Reason Start Date Expiration Date Visits Requested Visits Authorized [id number] Authorization Not Required 09/23/2023 1 1 Reason for Visit * Reason Comments Lung Cancer Follow up Encounter Details Date Type Department Care Team (Late st Contact Info) Description 09/23/2023 10:00 EST Telemedicine [facility] Radiation Oncology - [address] [address] Caroline Edwards NP [address] [facility], [facility], [address] [place] [address] Malignant neoplasm of upper lobe, right bronchus or lung (HCC-CMS) (Primary Dx); Homelessness Social History Tobacco Use Types Packs/Day Years Used Date Smoking Tobacco: Former Cigarettes 1.5 37 0 09/13/1975 - 09/13/2012 Smokeless Tobacco: Never Tobacco Cessation:Counseling Given: Yes Alcohol Use Standard Drinks/Week Comments No 0 [...] Record ed How often does anyone, inclu ding family, hit, punch or physically hurt you? Never 07/15/2023 How often does anyone, inclu ding family, insult, scream, curse or threaten to [...] of this encounter Progress Notes * Caroline Edwards NP - 09/23/2023 1000 EST Images from the original note were not included. Patient Name: Liset Viera (1960) Patient Provider: Caroline Edwards NP Date of service: 09/23/2023 Radiation Oncology Follow-Up Note Identification/Chief Compliant Liset Viera is a 62 y.o. female with COPD and lung cancer, [id number] at least stage IIB NSCLC ofthe right upper lobe with an intrapulmonary node s/p EBRT to 60 Gy in 15 fractions completed 08/20/21. Sees Dr. Bynum in pulmonology. Ms. Viera presents today for routine follow-up. Interval History She is currently undomiciled, staying at the [facility] in and as of tomorrow morning she has nowhere to go (pt reports the room is rented out tomorrow). She has been working with [employer] and notes that she will contact them tomorrow morning, reports contacting them sooner would not be fruitful. She asks if there is any social work support available through our department. She has been connected with Jesi Leong [facility], through PCP office. She was treated for a pneumonia by her PCP 08/26/23 with augmentin and azithromycin. She has been feeling better since this treatment. Denies unintentional weight loss, reports weight 150-155lbs. Appetite is variable, depends on stress related to homelessness. Cough is at baseline, no hemoptysis, occasionally productive of phlegm. Endorses shortness of breath depending on exertion level, which she reports is at her baseline. Taking spiriva and symbicort. Has PRN duonebs to use, PRN levalbuterol, and PRN tessalon perles. CT CHEST WO CONTRAST 08/25/2023 Impression Evolving radiation changes in the right upper lobe. Multifocal findings of bronchiolitis involving the left lung with a focal area of pneumonia in the anterior segment of the right upper lobe. Stable right hilar mass with airway narrowing. No other interval changes from the studies of Jan, 2023. Pain scale 09/23/2023 10:05 Pain Score (from Vitals) Initial score 0 Final score 0 Performance Status: 1: Restricted in physically strenuous activity but ambulatory and able to carryout work of a light or sedentary nature, e.g., light house work, office work (Limited, patient assessed by video conference) General: Well appearing, no apparent distress. HEENT: Normocephalic/atraumatic Lungs: No respiratory distress, no audible wheezing. Speaking in full sentences without breathlessness Neuro: Alert, oriented, speech appropriate There were no vitals filed for this visit. Wt Readings from Last 3 Encounters: 08/04/23 70.5 kg (155 lb 8 oz) 07/15/23 67.4 kg (148 lb 9.6 oz) 01/27/23 68.3 kg (150 lb 9.2 oz) Assessment/Plan Ms. Avila is now just over 2 years out from lung hypofractionated EBRT with evolving post-radiation treatment changes to the RUL. Her CT showed bronchiolitis and focal pneumonia, which was treated by her PCP. Also noted is right hilar mass, described as stable - please see comparative CT from initial CT to current. Reviewed with Dr. Valle. We will plan for repeat CT w contrast in 6 monthswith visit shortly after. She knows to call with questions or concerns in the interim. Ms. Avila is understandably stressed given the uncertainty of where she will be staying after tonight. I have asked our social work lecturer, Jorge Espinal, to reach out the the patient with possible resources. I spent a total of 30 minutes on the date of this encounter meeting with the patient and reviewing documentation/coordinating care as described in the above note. No procedures were performed at the time of the visit. I was supervised by Dr. Valle who was present and immediately available in the office suite. Caroline Edwards NP Radiation Oncology [phone] The concept of ???Telemedicine?? has been described [...] copays, deductible or coinsurance for this service. TELEMEDICINE VIDEO VISIT Today's visit was provided through telemedicine video conferencing: I have reviewed the appropriateness of using video technology with the patient with regards to today's visit. The location of the patient : [facility] Patient location state: Visit Location State: [place] The location of the provider: Clinic Exam Room Provider location state: Visit Location State: [place] The following people and their roles were present for today's visit: Appointment Provider: Caroline Edwards NP documented in this encounter Plan of Treatment Upcoming Encounters Date Type Department Care Team (Late st Contact Info) Description 06/29/2024 14:15 EDT Office Visit [facility] [address] [place] [address] Jean Munoz MD [address] [place] [address] Scheduled Orders Name Type Priority Associated Diagnoses Orde r Schedule CT CHEST W CONTRAST Imaging Routine Malignant neoplasm of upper lobe, right bronchus or lung (HCC-CMS) Expected: 03/23/2024 (Approximate), Expires: 03/23/2025 CREATININE Lab Routine Malignant neoplasm of upper lobe, right bronchus or lung (HCC-CMS) Expected: 03/23/2024 (Approximate), Expires: 09/23/2024 documented as of this encounter Visit Diagnoses Diagnosis Malignant neoplasm of upper lobe, right bronchus or lung (HCC-CMS)- Primary Homelessness Lack of housing Screening for osteoporosis- Primary [...] Discontinue Reason Start Date End Da te azithromycin (ZITHROMAX) 250 mg tabletIndications:Pneum onia due to infectious organism, unspecified laterality, unspecified part of lung Take 2 tablets (500 mg) on day 1, followed by 1 tablet (250 mg) once daily on days 2 through 5. 08/26/2023 09/23/2023 montelukast (SINGULAIR) 10 mg tabletIndications:Aller gic rhinitis, unspecified seasonality, unspecified trigger Take 1 Tab by mouth daily. For allergies 11/07/2020 09/23/2023 documented as of this encounter Care Teams Brusher Relationship Specialty Start Date End Date Jean Munoz MD [address] [place] [phone] PCP - General 12/31/08 [place] [address] [place] [phone] 04/20/10 Afia Valle MD [address] [place] [address], [facility] [address] [place] [phone] MD Care Team Radiation Oncology 07/02/21 Jesi Leong, [facility] [address] [place] [address] Behavioral Health Dispatch SpecialistKettle Tender Care 10/19/22 01/23/24 documented as of this encounter
--- OUTSIDE RECORDS SUMMARY | 2024-06-10 07:04 | XMS_ITS | Encounter Summary ---
Author Organization [facility] Address [address] [place] [address] Care Team Providers Care Community Health Coordinator Name Role Phone Jean Munoz MD Primary Care Provider Manny Rizzo MD Unavailable Afia Valle MD Unavailable Jesi Leong Unavailable Reason for Visit * Reason Comments Medications Refill Encounter Details Date Type Department Care Team (Late st Contact Info) Description 10/21/2023 Refill [facility] Medicine [facility] [address] [place] [address] Jean Munoz MD [address] [place] [address] Medications Refill Social History Tobacco Use [...] place to sleep or slept in a longterm (including now)? Yes 07/15/2023 Interpersonal Safety Answer [...] End Da te SUMAtriptan (IMITREX) 100 mg tabletIndications:Migrai ne without status migrainosus, not intractable, unspecified migraine type TAKE 1 TABLET BY MOUTH AT ONSET OF MIGRAINE 9 Tablet 2 10/21/2023 11/19/2023 documented in this encounter Miscellaneous Notes * Telephone Encounter - Armand Chapman RN - 10/21/2023 9354 EST Requested Prescriptions Pending Prescriptions Disp Refills SUMAtriptan (IMITREX) 100 mg tablet [Pharmacy Med Name: SUMATRIPTAN SUCC 100 MG TABLET] 9 Tablet 2 Sig: TAKE 1 TABLET BY MOUTH AT ONSET OF MIGRAINE Pharmacy: [facility] Last Refill Date: 10/06/23 - pharmacy change Last Visit Date: 10/06/23 Next Non-Acute Visit Date Scheduled with Care Team: No. 11/02/2023 ARMAND CHAPMAN RN 10/21/2023 14:56 documented in this encounter Plan of Treatment Upcoming Encounters Date Type Department Care Team (Late st Contact Info) Description 06/29/2024 14:15 EDT Office Visit [facility] Medicine [facility] [address] [place], [place] [phone] Jean Munoz MD [address] [place] [phone] documented as of this encounter Visit Diagnoses Diagnosis Migraine without status migrainosus, not intractable, unspecified migraine type- Primary Screening for osteoporosis- Primary Special [...] Discontinue Reason Start Date End Da te SUMAtriptan (IMITREX) 100 mg tabletIndications:Migrai ne without status migrainosus, not intractable, unspecified migraine type TAKE 1 TABLET BY MOUTH AT ONSET OF MIGRAINE 10/06/2023 10/21/2023 documented as of this encounter Care Teams Community Health Coordinator Relationship Specialty Start Date End Date Jean Munoz MD [address] [place] [address] PCP - General 12/31/08 Manny Rizzo MD [address] [place] [phone] 04/20/10 Afia Valle MD [address] [facility], [facility] [address] [place] [phone] Care Team Radiation Oncology 07/02/21 Jesi Leong, [facility] [address] [place] [address] Behavioral Health Media Law Faculty MemberLobster Man Care 10/19/22 01/23/24 documented as of this encounter
--- OUTSIDE RECORDS SUMMARY | 2024-06-10 07:04 | XMS_ITS | Encounter Summary ---
Author Organization [facility] Address [address] [place] [address] Care Team Providers Care Counselor Education Professor Name Role Phone Jean Munoz MD Primary Care Provider Manny Rizzo MD Unavailable Afia Valle MD Unavailable [phone] Jesi Leong Unavailable Reason for Visit * Reason Comments Coordination Of Care Encounter Details Date Type Department Care Team (Late st Contact Info) Description 09/17/2023 Community Health Team [facility] [address], [address] [place], [place] [phone] [facility], Health Assistance Program [address] [place] [address] Social History Tobacco Use Types Packs/Day Years [...] encounter Progress Notes * Caroline Mcneil - 09/17/2023 1622 EST ..[employer] Food Selector Date: 09/17/23 Referred by: Marcy Quinonez PCP: Jean Munoz MD Encounter type: Phone Reason for Referral: Housing Notes: This Food Selector spoke with patient regarding assistance with housing application Patient ask RC to call back on Wednesday 09/20 as she was busy moving into a new hotel room. Plan / Action Items: RC to call patient on 04/13/23 Caroline Mcneil Food Selector 09/17/23 16:22 documented in this encounter Plan of Treatment Upcoming Encounters Date Type Department Care Team (Late st Contact Info) Description 06/29/2024 14:15 EDT Office Visit [facility] Medicine [facility] [address] [place] [address] Jean Munoz MD [address] [place] [phone] documented as of this encounter Visit Diagnoses Not on filedocumented in this encounter Care Teams Counselor Education Professor Relationship Specialty Start Date End Date Jean Munoz MD [address] [place] [address] PCP - General 12/31/08 Manny Rizzo MD [address] [place] [phone] 04/20/10 Afia Valle MD [address] [place] [address] 2 [place] [address] Care Team Radiation Oncology 07/02/21 Jesi Leong, [facility] [address] [place] [address] Behavioral Health Access Control OfficerCigarette Vendor Care 10/19/22 01/23/24 documented as of this encounter
--- OUTSIDE RECORDS SUMMARY | 2024-06-10 07:04 | XMS_ITS | Encounter Summary ---
Author Organization [facility] Address [address] [place] [address] Care Team Providers Care Reporter Name Role Phone Jean Munoz MD Primary Care Provider Manny Rizzo MD Unavailable Afia Valle MD Unavailable [phone] Jesi Leong Unavailable Reason for Visit * Reason Onset Date Comments Medication Questions 12/02/2023 Medications Refill 12/02/2023 Encounter Details Date Type Department Care Team (Late st Contact Info) Description 12/02/2023 Refill [facility] Family [facility] [address] [place] [address] Jean Munoz MD [address] [place] [address] Medication Questions ; Medications Refill Social History Tobacco Use Types [...] to sleep or slept in a senior care (including now)? Yes 07/15/2023 Interpersonal Safety Answer [...] Dispensed Refills Start Date End Da te HYDROcodone-acetaminophe n (NORCO) 7.5-325 mg per tabletIndications:Chroni c pain syndrome,Chronic low back pain,Chronic use of opiate for therapeutic purpose,Pain medication agreement Take 1 Tablet by mouth every 6 hours for 21 days. For chronic pain. Daily Max: 4 Tablets 84 Tablet 12/03/2023 12/07/2023 documented in this encounter Miscellaneous Notes * Telephone Encounter - Armand Chapman RN - 12/03/2023 1420 EDT Spoke with patient and relayed below message from provider. Patient stating that she will find a lab location near her and get the fax number and notify this office to send the orders. Patient aware of next appointment on 12/22 and stating that she will be here for it. Patient verbalized understanding and agrees with plan. No barriers to learning identified. ARMAND CHAPMAN RN 12/03/2023 14:21 * Telephone Encounter - Jean Munoz MD - 12/03/2023 1002 EDT Prescription sent to pharmacy. Has appointment scheduled December 22. Has not had labs as ordered in July. Last urine screen 2020. Per opiate policy needs urine screen once yearly. Please let her know. If unable to follow-up for urine testing or go to the lab, may need to consider seeing a provider in location that is more convenient for her. Thanks. * Telephone Encounter - Armand Chapman RN - 12/03/2023 0912 EDT Attempted to call pharmacy, unable to get through. [facility] has not been updated to show November dispense. Pended partial fill per patients message. Routing to provider to review. ARMAND CHAPMAN RN 12/03/2023 9:28 * Telephone Encounter - RUSSELL Fitzpatrick - 12/02/2023 5977 EDT Medication(s) Requested [facility] informed that they have HYDROcodone-acetaminophen (NORCO) 7.5-325 mg per tablet in stock but can only dispense 7 day supply to patient. Patient states this means she will be out of medication next . Requests a refill to fill remaining. To get her through until December 29 as this is the renewal date. Patient requests callback to discuss further. [facility] - [place], [place] - [address] [place] [address] Next Visit Date 12/02/2023 Last Visit Date 07/15/2023 Out of Medication? No, has a 7 day supply Advised med requests may take up to 3 business days. RUSSELL Fitzpatrick 12/02/2023 11:40 . documented in this encounter Plan of Treatment Upcoming Encounters Date Type Department Care Team (Late st Contact Info) Description 06/29/2024 14:15 EDT Office Visit [facility] Medicine [facility] [address] [place] [address] Jean Munoz MD [address] [place] [address] documented as of this encounter Visit Diagnoses Diagnosis Chronic pain syndrome Chronic low back pain [...] Discontinue Reason Start Date End Da te HYDROcodone-acetaminophe n (NORCO) 7.5-325 mg per tabletIndications:Chroni c pain syndrome,Chronic low back pain,Chronic use of opiate for therapeutic purpose,Pain medication agreement Take 1 Tablet by mouth every 6 hours for 28 days. For chronic pain. Daily Max: 4 Tablets Reorder 12/03/2023 12/03/2023 documented as of this encounter Care Teams Reporter Relationship Specialty Start Date End Date Jean Munoz MD [address] [place] [phone] PCP - General 12/31/08 Manny Rizzo MD [address] [place] [phone] 04/20/10 Afia Valle MD [address] [place] [address] [address] [place] [phone] MD Care Team Radiation Oncology 07/02/21 Jesi Leong, [facility] [address] [place] [phone] Behavioral Health Glove StitcherExpanded Duty Dental Assistant Care 10/19/22 01/23/24 documented as of this encounter
--- OUTSIDE RECORDS SUMMARY | 2024-06-10 07:04 | XMS_ITS | Encounter Summary ---
Author Organization [facility] Address [address] [place] [address] Care Team Providers Care Antenna Machine Operator Name Role Phone Jean Munoz MD Primary Care Provider Manny Rizzo MD Unavailable Afia Valle MD Unavailable Jesi Leong Unavailable Reason for Visit * Reason Onset Date Comments Medication Management 12/28/2023 Encounter Details Date Type Department Care Team (Late st Contact Info) Description 12/28/2023 Telephone [facility] [address] [place] [address] Jean Munoz MD [address] [place] [address] Medication Management Social History Tobacco [...] Telephone Encounter - Candice Dickens RN - 01/04/2024 1120 EDT Spoke to Franki Hutchins, pharmacy ended up reimbursing her. Candice Dickens RN 01/04/2024 11:21 * Telephone Encounter - Candice Dickens RN - 12/28/2023 1307 EDT [facility]. Candice Dickens RN 12/28/2023 13:08 * Telephone Encounter - Sahra Ibarra - 12/28/2023 0931 EDT Reason for Call: Medication Management Summary/Symptoms: Pt says she paid out of pocket for her medications when Medicaid had their cyber attack. She says she is trying to get reimbursed from the pharmacy but the pharmacist is telling her that she cannot refund her as they are telling her that her provider cancelled her medications. She says she talked with Medicaid, she says they told her that they have arranged it so the pharmacies can refund the pt. The pt is asking that we call her pharmacy to clarify they problem. Judie Sanchez Onset and Duration: N/A Appt offered? N/A Sahra Ibarra 12/28/2023 9:31 documented in this encounter Plan of Treatment Upcoming Encounters Date Type Department Care Team (Late st Contact Info) Description 06/29/2024 14:15 EDT Office Visit [facility] [address] [place] [address] Jean Munoz MD [address] [place] [address] documented as of this encounter Visit Diagnoses Not on filedocumented in this encounter Care Teams Antenna Machine Operator Relationship Specialty Start Date End Date Jean Munoz MD [address] [place] [phone] PCP - General 12/31/08 Manny Rizzo MD [address] [place] [phone] 04/20/10 Afia Valle MD [address] [facility] 2 [place] [phone] Care Team Radiation Oncology 07/02/21 Jesi Leong, [facility] [address] [place] [phone] Behavioral Health Tag And Label CutterNeedle Process Felt Goods Supervisor Care 10/19/22 01/23/24 documented as of this encounter
--- OUTSIDE RECORDS SUMMARY | 2024-06-10 07:04 | XMS_ITS | Encounter Summary ---
Author Organization [facility] Address [address] [place] [address] Care Team Providers Care Repair Tech Name Role Phone Jean Munoz MD Primary Care Provider Manny Rizzo MD Unavailable Afia Valle MD Unavailable Jesi Leong Unavailable Encounter Details Date Type Department Care Team (Late st Contact Info) Description 09/23/2023 Orders Only [facility] Radiology - Main [place] [address] [place] [address] Chaitanya Delaney [address] [place] [phone] Social History Tobacco Use Types Packs/Day Years [...] Info) Description 06/29/2024 14:15 EDT Office Visit [facility] 3 [place] [address] Jean Munoz MD [address] [place] [address] documented as of this encounter Visit Diagnoses Not on filedocumented in this encounter Care Teams Repair Tech Relationship Specialty Start Date End Date Jean Munoz MD [address] [place] [phone] PCP - General 12/31/08 Manny Rizzo MD [address] [place] [phone] 04/20/10 Afia Valle MD [address] [place] [address] 2 [place] [phone] Care Team Radiation Oncology 07/02/21 Jesi Leong, [facility] [address] [place] [phone] Behavioral Health Supervisor Sign ShopRehabilitation Physician Care 10/19/22 01/23/24 documented as of this encounter
--- OUTSIDE RECORDS SUMMARY | 2024-06-10 07:04 | XMS_ITS | Encounter Summary ---
Author Organization [facility] Address [address] [place] [address] Care Team Providers Care Performance Consultant Name Role Phone Jean Munoz MD Primary Care Provider Manny Rizzo MD Unavailable Afia Valle MD Unavailable Jesi Leong Unavailable [phone] Reason for Visit * Reason Onset Date Comments Medication Problem 10/08/2023 Encounter Details Date Type Department Care Team (Late st Contact Info) Description 10/08/2023 [facility]phone [facility] [address] [place] [address] Jean Munoz MD [address] [place] [address] Medication Problem Social History Tobacco Use Types Packs/Day Years [...] Dispensed Refills Start Date End Da te lancets Brand: One Touch ultra soft 2, check blood glucose twice daily. 100 Each 3 10/08/2023 ipratropium-albuteroL (DUONEB) 0.5 mg-3 mg(2.5 mg base)/3 mL nebulizer solutionIndications:Jarquin lobular emphysema (HCC-CMS) Take 3 mL by nebulization every 4 hours as needed for Wheezing. 90 mL 3 10/08/2023 documented in this encounter Miscellaneous Notes * Telephone Encounter - Caroline Hsieh RN - 10/08/2023 1443 EST Methylphenidate already sent to a different pharmacy. Neb solution dispense quantity was set as 3 ml which is one neb. 1 box has 30 nebs so would need new rx for 90 ml. They also needed new rx for lancets with one touch ultra soft 2 listed. Sent in fixed scripts. CAROLINE HSIEH RN 10/08/2023 15:18 * Telephone Encounter - Deidre Patel - 10/08/2023 1216 EST Reason for Call: Medication Problem Summary/Symptoms: Pharmacy questioning quantity written for albuterol solution. One touch Delica Pluce lancets are not preferred by insurance company. Methylphenidate 20 mg is back ordered. Methylphenidate 10 mg is back ordered. Onset and Duration? N/A Appointment Offered? N/A Deidre Patel 10/08/2023 12:17 documented in this encounter Plan of Treatment Upcoming Encounters Date Type Department Care Team (Late st Contact Info) Description 06/29/2024 14:15 EDT Office Visit [address] [address] Jean Munoz MD [address] [place] [address] documented as of this encounter Visit Diagnoses Diagnosis Panlobular emphysema (HCC-CMS)- Primary Other emphysema Screening for osteoporosis- Primary [...] Discontinue Reason Start Date End Da te lancets Brand: One Touch Delica, check blood glucose twice daily. Reorder 10/06/2023 10/08/2023 ipratropium-albuteroL (DUONEB) 0.5 mg-3 mg(2.5 mg base)/3 mL nebulizer solutionIndications:P anlobular emphysema (HCC-CMS) Take 3 mL by nebulization every 4 hours as needed for Wheezing. Reorder 10/06/2023 10/08/2023 documented as of this encounter Care Teams Performance Consultant Relationship Specialty Start Date End Date Jean Munoz MD [address] [place] [phone] PCP - General 12/31/08 Manny Rizzo MD [address] [place] [phone] 04/20/10 Afia Valle MD [address] [facility], Level [address] [place] [phone] Care Team Radiation Oncology 07/02/21 Jesi Leong [facility] [address] [place] [phone] Behavioral Health Instrument EngineerRecording Clerk Care 10/19/22 01/23/24 documented as of this encounter
--- OUTSIDE RECORDS SUMMARY | 2024-06-10 07:04 | XMS_ITS | Encounter Summary ---
Author Organization [facility] Address [address] [place] [address] Care Team Providers Care Tnt Line Supervisor Name Role Phone Jean Munoz MD Primary Care Provider Manny Rizzo MD Unavailable Afia Valle MD Unavailable Jesi Leong Unavailable Reason for Visit * Reason Onset Date Comments Medication Problem 10/07/2023 Encounter Details Date Type Department Care Team (Late st Contact Info) Description 10/07/[address] [facility] [address] [place] [address] Jean Munoz MD [address] [place] [address] Medication Problem Social History Tobacco [...] encounter Miscellaneous Notes * Telephone Encounter - Lisa Venegas - 10/08/2023 1016 EST Reviewed chart, these were sent with fill date of 10/07. Attempted to call pharmacy, their phone is not ringing at this time. Will leave in box to try later. LISA VENEGAS RN 10/08/2023 10:16 * Telephone Encounter - Shawn Hernandez - 10/07/2023 1629 EST Reason for Call: Medication Problem Summary/Symptoms: Patient states she called the pharmacy and they have the medication dated for patient to meat pickler on Wednesday but patient states she needs the meat pickler date to be today for methylphenidate HCl (RITALIN;METHYLIN) 20 mg tablet and methylphenidate HCl (RITALIN;METHYLIN) 10 mg tablet. Onset and Duration? NA Appointment Offered? No Shawn Hernandez 10/07/2023 16:30 documented in this encounter Plan of Treatment Upcoming Encounters Date Type Department Care Team (Late st Contact Info) Description 06/29/2024 14:15 EDT Office Visit [facility] Medicine [facility] [address] [place] [address] Jean Munoz MD [address] [place] [address] documented as of this encounter Visit Diagnoses Not on filedocumented in this encounter Care Teams Tnt Line Supervisor Relationship Specialty Start Date End Date Jean Munoz MD [address] [place] [address] PCP - General 12/31/08 Manny Rizzo MD [address] [place] [phone] 04/20/10 Afia Valle MD [address] [facility] 2 [place] [phone] MD Care Team Radiation Oncology 07/02/21 Jesi Leong, [facility] [address] [place] [address] Behavioral Health Break Out ManElectronics Maintenance Technician Care 10/19/22 01/23/24 documented as of this encounter
--- OUTSIDE RECORDS SUMMARY | 2024-06-10 07:04 | XMS_ITS | Encounter Summary ---
Author Organization [facility] Address [address] [place] [address] Care Team Providers Care Machine Chain Maker Name Role Phone Jean Munoz MD Primary Care Provider Manny Rizzo MD Unavailable Afia Valle MD Unavailable Jesi Leong AUTO PARTS COUNTER PERSON Unavailable [phone] Reason for Visit * Reason Comments Depression Anxiety Other Unhoused Encounter Details Date Type Department Care Team (Late st Contact Info) Description 10/06/2023 13:30 EST Telemedicine [facility] Family Medicine [facility] [address] [place] [address] Jesi Leong, AUTO PARTS COUNTER PERSON [address] [place] [address] Current moderate episode of major depressive disorder, unspecified whether recurrent (HCC-CMS) (Primary Dx) Social History Tobacco Use Types Packs/Day Years Used Date Smoking Tobacco: Former Cigarettes 1.5 37 0 09/13/1975 - 09/13/2012 Smokeless Tobacco: Never Alcohol Use Standard Drinks/Week Comments No 0 (1 standard drink = 0.6 oz pur e alcohol) rarely Overall Financial Resource Strain (CARDIA) Shani carson Date Recorded How hard is it for [...] place to sleep or slept in a nursing home (including now)? Yes 07/15/2023 Interpersonal Safety [...] this encounter Progress Notes * Jesi Leong, [facility] - 10/06/2023 1330 EST Images from the original note were not included. Primary Care Mental Health Integration Collaborative Care Mental Health Clinician Follow-up Note Date of Service: 10/06/2023 Time of Service: 1:30pm Total Time: 22 minutes Collaborative Care Time Spent: 2 minutes Psychotherapy Time Spent: 20 minutes Psychotherapy Procedure Code: 09757 16-37mins individual f/u Appointment took place via telephone with patient. This visit was conducted by telephone. I spent a total of 22 minutes in discussion with the patientas described in the progress note. The concept of ???Telemedicine?? has been described [...] copays, deductible or coinsurance for this service. Chief Complaint/Reason for Visit Chief Complaint Patient presents with Depression Anxiety Other Unhoused Rationale for This Session Cognitive Behavior Therapy and Behavioral Activation is indicated to treat anxiety and depression and has been empirically documented to be effective in the treatment of this patient's condition. Rationale for Frequency and Duration of Services Consistent with patient request and treatment modality Information obtained from: patient interview Kalie Liset reports currently up to the [facility], [facility] [employer] support due tocontinued unhoused status. Shares able to access food within walking distance, larger room, has wifi. Partner has interview tomorrow for work nearby, bus route access. Mood sharp so-so, continued uncertainty themes related to lack of permanent housing. Contemplating staying in the [facility] if Robert is hired, housing costs more affordable. Cats with friend in [place], worries about them.No vehicle of own, coordinating with Robert's cousin to get to their storage unit this weekend; clothes and shaggy supplies. Coping by taking things one day at a time, sometimes one moment at a time. Feels a lot out of her control. Explored basic needs coping, sleep, nutrition, movement, natural light. Rooms bigger at this unit, much improved from [place]. Objective Mental Status Examination Appearance: Unable to assess due to phone visit. Behavior: readily engaged in discussion Alertness: alert Speech: speech is of normal rate, tone, and spontaneity, use of language is is normal. Orientation: to person, place, time and situation Mood: so-so Affect: full range Thought Process: organized and future oriented. Memory: intact Judgment:good Validated Behavioral Health Measures 06/08/2023 12:36 07/15/2023 [...] For depression, anxiety 180 Each 3 fexofenadine (JUDITH) 180 mg tablet TAKE 1 TABLET BY MOUTH EVERY DAY for allergies 90 Tablet 4 HYDROcodone-acetaminophen (NORCO) 7.5-325 mg per tablet Take [...] 3 mL 3 lancets Brand: One Touch Fonix, check blood glucose twice daily. 100 Each [...] MOUTH DAILY AT BEDTIME 180 Tablet 1 methylphenidate HCl (RITALIN;METHYLIN) 10 mg tablet Take [...] mg 28 Tablet 0 methylphenidate HCl (RITALIN;METHYLIN) 20 mg [...] EVERY DAY for allergies 90 Tablet 3 omeprazole (PRILOSEC) 40 mg capsule Take 1 Cap by mouth daily. 90 Cap 3 ondansetron (ZOFRAN) 4 mg tablet Take 1 Tablet by mouth every 8 hours as needed for Nausea. 30 Tablet 2 ONETOUCH DELICA PLUS LANCET 33 gauge misc ONETOUCH ULTRA TEST test strips TEST 2 [...] current facility-administered medications for this visit. Psychopharmacology: taking as prescribed Assessment (include DSM V diagnosis, progress since last session, and decision making regarding treatment plan) Liset is a 62 y.o. female presenting with (F32.1) Current moderate episode of major depressive disorder, unspecified whether recurrent ([facility]) (primary encounter diagnosis) Passive suicidal ideation, denies plan or intent. Liset's continued mood symptoms are significantly influenced by the stressor of their lack of permanent housing. Liset's belongings are mostly in storage, making it difficult for her to engage in activities like shaggy that are a source of purpose/meaning. Liset is focusing right now on sleep, nutrition, safety to support her mood and anxiety. Transition to Care Management, Liset not ready to commit to a community based clinician stating it is hard to know where they will be at any future point in time. Would like to wait until they are permanently housed. This copywriter explained will end psychotherapy visits, but will check back in four weeks to determine where thing stand related to housing and support Liset in navigating ongoing outpatient therapy with a community clinician. Stage of Change: Action Recommendations and Plan Recommended Level of Care: Care Management, Outpatient Psychotherapy 2. Discontinue current treatment plan 3. Follow up is scheduled for Nov 02, 2023 at 1:30pm for Care Management follow up / ending psychotherapy. 4. Complete Skills Practice: Continued use of healthy coping strategies. 5. Care Management Needs: Future outpatient psychotherapy; waiting to determine where she will be housed before starting. 6. Continue current pharmacotherapy as applicable. SHIFTING TO CARE MANAGEMENT ONLY FADUMO Salcedo 10/06/2023 14:03 documented in this encounter Plan of Treatment Upcoming Encounters Date Type Department Care Team (Late st Contact Info) Description 06/29/2024 14:15 EDT Office Visit [facility] 3 [place] [address] Jean Munoz MD [address] [place] [address] documented as of this encounter Visit Diagnoses Diagnosis Current moderate episode of major depressive disorder, unspecified whether recurrent ([facility])- Primary Screening for osteoporosis- Primary Special screening for osteoporosis Primary narcolepsy without cataplexy Chronic pain syndrome Chronic low back pain Lumbago Chronic use of opiate for therapeutic purpose Pain medication agreement Encounter for long-term (current) use of other medications Screen for colon cancer Special screening for malignant neoplasms, colon documented in this encounter Care Teams Machine Chain Maker Relationship Specialty Start Date End Date Jean Munoz MD [address] [place] [address] PCP - General 12/31/08 Manny Rizzo MD [address] [place] [phone] 04/20/10 Afia Valle MD 111 [facility], [facility] 2 [place] [phone] MD Care Team Radiation Oncology 07/02/21 Jesi Leong, [facility] [address] [place] [address] Behavioral Health Cash PersonLaborer Chemical Processing Care 10/19/22 01/23/24 documented as of this encounter
--- OUTSIDE RECORDS SUMMARY | 2024-06-10 07:04 | XMS_ITS | Encounter Summary ---
Author Organization [facility] Address [address] [place] [address] Care Team Providers Care Geriatric Nursing Assistant Name Role Phone Jean Munoz MD Primary Care Provider Manny Rizzo MD Unavailable Afia Valle MD Unavailable Jesi Leong Unavailable Encounter Details Date Type Department Care Team (Late st Contact Info) Description 08/23/[address] [facility] Pulmonology & Critical Care - Main [place] [address] [place], [place] [phone] Duy Bynum MD Social History Tobacco Use Types Packs/Day Years [...] Dispensed Refills Start Date End Da te tiotropium bromide (SPIRIVA RESPIMAT) 2.5 mcg/actuation inhalation mist Inhale 2 Puffs as directed daily. 4 g 11 08/23/2023 10/06/2023 SYMBICORT 80-4.5 mcg/actuation HFA aerosol inhaler inhaler Inhale 2 Puffs as directed 2 times daily. Use with spacer and rinse mouth after use. 10.2 g 11 08/23/2023 10/06/2023 documented in this encounter Progress Notes * Duy Bynum MD - 08/23/2023 193 EST Brief Progress Note: Left message via phone of new prescriptions [Symbicort, Spiriva] given lack of coverage of Trelegy. Duy Bynum MD 08/23/23 19:49 documented in this encounter Plan of Treatment Upcoming Encounters Date Type Department Care Team (Late st Contact Info) Description 06/29/2024 14:15 EDT Office Visit [facility] 3 [place] [address] Jean Munoz MD [address] [place] [phone] documented as of this encounter Visit Diagnoses Not on filedocumented in this encounter Discontinued Medications Medication Sig Discontinue Reason Start Date End Da te fluticasone-umeclidin- vilanter (TRELEGY ELLIPTA) 200-62.5-25 mcg blister with device Inhale 1 Puff as directed daily. Insurance does not cover 07/15/2023 08/23/2023 documented as of this encounter Care Teams Geriatric Nursing Assistant Relationship Specialty Start Date End Date Jean Munoz MD [address] [place] [phone] PCP - General 12/31/08 Manny Rizzo MD [address] [place] [address] 04/20/10 Afia Valle MD 111 [facility], [facility] 2 [place] [phone] MD Care Team Radiation Oncology 07/02/21 Jesi Leong, [facility] 3 [place] [phone] Behavioral Health Accounting ProfessorDriveway Sealer Care 10/19/22 01/23/24 documented as of this encounter
--- OUTSIDE RECORDS SUMMARY | 2024-06-10 07:04 | XMS_ITS | Encounter Summary ---
Author Organization [facility] Address [address] [place] [address] Care Team Providers Care Continuous Wave Operator Name Role Phone Jean Munoz MD Primary Care Provider Manny Rizzo MD Unavailable Afia Valle MD Unavailable Jesi Leong Unavailable Reason for Visit * Reason Onset Date Comments Paperwork request 10/29/2023 Encounter Details Date Type Department Care Team (Late st Contact Info) Description 10/29/2023 Telephone [facility] 3 [place] [address] Jean Munoz MD [address] [place] [address] Paperwork request Social History Tobacco Use Types Packs/Day Years [...] encounter Miscellaneous Notes * Telephone Encounter - Fitzpatrick, RUSSELL - 10/29/2023 0952 EST Reason for Call: Paperwork request Summary/Symptoms: Calling to confirm if prescription request sent on 10/26/23 was received. Unable to locate. Will refax. Onset and Duration? NA Appointment Offered? N/A RUSSELL Fitzpatrikc 10/29/2023 9:54 documented in this encounter Plan of Treatment Upcoming Encounters Date Type Department Care Team (Late st Contact Info) Description 06/29/2024 14:15 EDT Office Visit [facility] Medicine [facility] 3 [place], [place] [phone] Jean Munoz MD [address] [place] [phone] documented as of this encounter Visit Diagnoses Not on filedocumented in this encounter Care Teams Continuous Wave Operator Relationship Specialty Start Date End Date Jean Munoz MD [address] [place] [phone] PCP - General 12/31/08 Manny Rizzo MD [address] [place] [phone] 04/20/10 Afia Valle MD [address] [place] [address] 2 [place] [phone] Care Team Radiation Oncology 07/02/21 Jesi Leong, [facility] 3 [place] [address] Behavioral Health Financial Analyst AccountantCan Runner Care 10/19/22 01/23/24 documented as of this encounter
--- OUTSIDE RECORDS SUMMARY | 2024-06-10 07:04 | XMS_ITS | Encounter Summary ---
Author Organization [facility] Address [address] [place] [address] Care Team Providers Care Corporate Travel Manager Name Role Phone Jean Munoz MD Primary Care Provider Manny Rizzo MD Unavailable Afia Valle MD Unavailable Jesi Leong Unavailable Reason for Visit * Reason Onset Date Comments Medication Questions 12/22/2023 Encounter Details Date Type Department Care Team (Late st Contact Info) Description 12/22/2023 Telephone [facility] [address] [place] [address] Jean Munoz MD [address] [place] [address] Medication Questions Social History Tobacco Use Types Packs/Day Years [...] Dispensed Refills Start Date End Da te lidocaine (XYLOCAINE) 2 % solution 5 ML, mixed with 5 ml mylanta or maalox, swish and swallow for swallowing pain, take by mouth every 6 hours as needed. 100 mL 2 12/23/2023 ondansetron (ZOFRAN) 4 mg tabletIndications:Naus ea Take 1 Tablet by mouth every 8 hours as needed for Nausea. If promethazine not effective. 30 Tablet 2 12/23/2023 02/28/2024 SUMAtriptan (IMITREX) 100 mg tabletIndications:Migr lu without status migrainosus, not intractable, unspecified migraine type Take 1 Tablet by mouth daily as needed for Migraine. Take at onset of migraine. May repeat in 2 hours if needed. Daily max: 2 tablets. 9 Tablet 2 12/23/2023 03/23/2024 documented in this encounter Miscellaneous Notes * Telephone Encounter - Armand Chapman RN - 12/24/2023 0901 EDT Provider wrote note on the ondansetron prescription about directions for use with promethazine. Call back not needed as directions were clarified on the prescription. ARMAND CHAPMAN RN 12/24/2023 9:02 * Telephone Encounter - Jean Munoz MD - 12/23/2023 1847 EDT 1) Sumatriptan (Imitrex) 100 mg 1 tablet by mouth as needed for migraine, may repeat x 1 in 2 hours, not to exceed 2 tablets in 24 hours. 2) Lidocaine (Xylocaine) 2% solution 5 mL mixed with 5 mL Mylanta or Maalox, swish and swallow for swallowing pain up to 4 times daily as needed. 3) Promethazine and Ondansetron -she usually takes promethazine first for nausea. May repeat seconddose in 4 to 6 hours. She then uses ondansetron if promethazine is not effective. Prescriptions sent. * Telephone Encounter - Armand Chapman RN - 12/22/2023 1449 EDT Spoke with pharmacist Sandi: Stating that provider needs to review below prescription needs. 1) Sumatriptan - needs a frequency, and if okay to repeat dose if needed. 2) Lidocaine - needs frequency of how often throughout the day can use. 3) Promethazine and Ondansetron - need to ensure provider is aware of duplicate anti-emetic therapyand that patient knows when to use each medication. ARMAND CHAPMAN RN 12/22/2023 14:55 Need to call back after provider review. * Telephone Encounter - Lashaun Rivera - 12/22/2023 0928 EDT Reason for Call: Medication Questions Summary/Symptoms: Pharmacy calling to verify the duplicate therapy on the prescriptions for ondansetron 4mg and promethazine 25mg as well as verify the instructions for the sumatriptan 100mg and lidocaine 2% solution. Requests nurse call back Onset and Duration? N/A Appointment Offered? N/A Lashaun Rivera 12/22/2023 9:29 documented in this encounter Plan of Treatment Upcoming Encounters Date Type Department Care Team (Late st Contact Info) Description 06/29/2024 14:15 EDT Office Visit [facility] [address] [place], [place] [id number] Jean Munoz MD [address] [place] [address] documented as of this encounter Visit Diagnoses Diagnosis Migraine without status migrainosus, not intractable, unspecified migraine type Nausea Nausea alone Screening for osteoporosis- Primary [...] Discontinue Reason Start Date End Da te lidocaine (XYLOCAINE) 2 % solution 5 ML, mixed with 5 ml mylanta or maalox, swish and swallow for swallowing pain. Reorder 11/19/2023 12/22/2023 SUMAtriptan (IMITREX) 100 mg tabletIndications:Migra ine without status migrainosus, not intractable, unspecified migraine type TAKE 1 TABLET BY MOUTH AT ONSET OF MIGRAINE Reorder 11/21/2023 12/22/2023 ondansetron (ZOFRAN) 4 mg tabletIndications:Nause a Take 1 Tablet by mouth every 8 hours as needed for Nausea. Order modification 11/21/2023 12/23/2023 documented as of this encounter Care Teams Corporate Travel Manager Relationship Specialty Start Date End Date Jean Munoz MD [address] [place] [phone] PCP - General 12/31/08 Manny Rizzo MD [address] [place] [phone] 04/20/10 Afia Valle MD [address] [place] [address] [address] [place] [phone] Care Team Radiation Oncology 07/02/21 Jesi Leong, [facility] [address] [place] [phone] Behavioral Health Solid Tire Tuber Machine OperatorRewinder Care 10/19/22 01/23/24 documented as of this encounter
--- OUTSIDE RECORDS SUMMARY | 2024-06-10 07:04 | XMS_ITS | Encounter Summary ---
Author Organization [facility] Address [address] [place] [address] Care Team Providers Care Road Supervisor Of Engines Name Role Phone Jean Munoz MD Primary Care Provider Manny Rizzo MD Unavailable Afia Valle MD Unavailable [phone] Jesi Leong Unavailable Reason for Visit * Reason Onset Date Comments Medication Management 09/29/2023 Encounter Details Date Type Department Care Team (Late st Contact Info) Description 09/29/2023 Telephone [facility] [address] [place] [address] Jean Munoz MD [address] [place] [address] Medication Management Social History Tobacco [...] place to sleep or slept in a residential (including now)? Yes 07/15/2023 Interpersonal Safety Answer Date Record ed How often does anyone, cluadia long family, hit, punch or physically hurt [...] encounter Miscellaneous Notes * Telephone Encounter - Fani Dickens RN - 09/29/2023 1157 EST Called patient, Rescheduled for earlier appt. FANI SPANGLER RN 09/29/2023 12:06 * Telephone Encounter - Shawn Hernandez - 09/29/2023 0835 EST Reason for Call: Medication Management Summary/Symptoms: Patient states she will be out of medication methylphenidate HCl (RITALIN;METHYLIN) 20 mg tablet ,methylphenidate HCl (RITALIN;METHYLIN) 10 mg tablet , and HYDROcodone-acetaminophen(NORCO) 7.5-325 mg per tablet on 10/09/2023. Patient has appt with pcp for a f/u on 10/20/2023 but patient states she wanted to see him before 10/20/2023. Line Camera Operator looked for appts with pcp but he didn't have any availability sooner. Patient is requesting to get medication to hold her over until her appt on 10/20/2023. Onset and Duration? NA Appointment Offered? N/A Shawn Hernandez 09/29/2023 8:36 documented in this encounter Plan of Treatment Upcoming Encounters Date Type Department Care Team (Late st Contact Info) Description 06/29/2024 14:15 EDT Office Visit [facility] [address] [place] [address] Jean Munoz MD [address] [place] [phone] documented as of this encounter Visit Diagnoses Diagnosis Chronic pain syndrome Chronic low back pain Lumbago Chronic use of opiate for therapeutic purpose Pain medication agreement Encounter for long-term (current) use of other medications Primary narcolepsy without cataplexy Nausea Nausea alone Screening for osteoporosis- Primary Special screening for osteoporosis Primary narcolepsy without cataplexy Chronic pain syndrome Chronic low back pain Lumbago Chronic use of opiate for therapeutic purpose Pain medication agreement Encounter for long-term (current) use of other medications Screen for colon cancer Special screening for malignant neoplasms, colon documented in this encounter Care Teams Road Supervisor Of Engines Relationship Specialty Start Date End Date Jean Munoz MD [address] [place] [phone] PCP - General 12/31/08 Manny Rizzo MD [address] [place] [phone] 04/20/10 Afia Valle MD [address] [place] [address] [address] [place] [phone] MD Care Team Radiation Oncology 07/02/21 Jesi Leong, [facility] [address] [place] [phone] Behavioral Health Sand WheelerMail Technician Care 10/19/22 01/23/24 documented as of this encounter
--- OUTSIDE RECORDS SUMMARY | 2024-06-10 07:05 | XMS_ITS | Encounter Summary ---
Author Organization [facility] Address [address] [place] [address] Care Team Providers Care Linotype Mechanic Name Role Phone Jean Munoz MD Primary Care Provider Manny Rizzo MD Unavailable Afia Valle MD Unavailable Jesi Leong Unavailable Reason for Visit * Reason Onset Date Comments Pharmacy 04/26/2023 Medication Problem 04/26/2023 Encounter Details Date Type Department Care Team (Late st Contact Info) Description 04/26/2023 Telephone [facility] [address] [place] [address] Jean Munoz MD [address] [place] [phone] Pharmacy; Medication Problem Social History Tobacco Use Types [...] food, housing, medical care, and heating? Hard 07/30/2022 PHQ-2 Answer Date Recorded PHQ-2 SUBTOTAL 2 04/05/2023 Hunger Vital Sign Answer Date Recorded Within the past 12 months, y ou worried that your food would run out before you got the money to buy more. Sometimes true Within the past 12 months, t he food you bought just didn't last and you didn't have money to get more. Sometimes true PRAPARE - Transportation Answer Date Re corded In the past 12 months, has l ack of transportation kept you from medical appointments or from getting medications? Yes 07/14 In the past 12 months, has l ack of transportation kept you from meetings, work, or from getting things needed for daily living? Yes 07/30/2022 Housing Stability Vital Sign Answer Gustavo e Recorded In the last 12 months, was t here a time when you were not able to pay the mortgage or rent on time? Yes 07/30/2022 In the last 12 months, how many places have you lived? 1 07/30/2022 In the last 12 months, was t here a time when you did not have a steady place to sleep or slept in a jail (including now)? No 07/30/2022 Interpersonal Safety Answer Date Record ed How often does anyone, claudia long family, hit, punch or physically hurt you? Rarely 04/24/2021 How often does anyone, claudia long family, insult, scream, curse or threaten to hurt you? Rarely 04/24/2021 Sex and Gender Information Value Date Recorded [...] Tablet by mouth every 6 hours for 25 days. For chronic pain. Daily Max: 4 Tablets 100 Tablet 04/26/2023 07/02/2023 documented in this encounter Miscellaneous Notes * Telephone Encounter - Armand Chapman RN - 04/26/2023 1701 EDT Attempted to call patient to notify that rx was sent to the pharmacy - no answer and mailbox full, however below message states she was going to check in with the pharmacy and aware provider was addressing. Closing encounter. ARMAND CHAPMAN RN 04/26/2023 17:03 * Telephone Encounter - Gisselle Valdez - 04/26/2023 1659 EDT Patient calling to check the status of this message, she is aware the provider is addressing this message now, she will check with the pharmacy in a few minutes. * Telephone Encounter - Jean Munoz MD - 04/26/2023 1659 EDT Rx sent. * Telephone Encounter - Armand Chapman RN - 04/26/2023 1649 EDT Images from the original note were not included. Routing to provider to review. ARMAND CHAPMAN RN 04/26/2023 16:51 * Telephone Encounter - Radha Henderson - 04/26/2023 1640 EDT Called regarding hydrocodone. States needs med today as she cannot get to pharmacy for rest of the week. Please advise. * Telephone Encounter - Antionette Nichols - 04/26/2023 1603 EDT Pt called regarding her Hydrocodone. States she needs a new refill because they only gave her a partial fill on Wednesday. She states she only received 12 tabs on Wednesday. [facility] in [place] See pharmacy note below. * Telephone Encounter - Jose Perez - 04/26/2023 1320 EDT Reason for Call: Pharmacy Summary/Symptoms: Patient says that she only received 12# of the HYDROcodone- acetaminophen (NORCO) 7.5-325 mg per tablet on Wednesday and they need a new script for the remaining 100 left sent to [facility] in [facility]. Please call and let patient know when this has been done as she needs to arrange a ride to go get this again. Onset and Duration? Today please Appointment Offered? No Jose Perez 04/26/2023 13:20 documented in this encounter Plan of Treatment Upcoming Encounters Date Type Department Care Team (Late st Contact Info) Description 06/29/2024 14:15 EDT Office Visit [facility] [address] [place] [address] Jean Munoz MD [address] [place] [phone] documented as of this encounter [...] chronic pain. Daily Max: 4 Tablets Reorder 04/24/2023 04/26/2023 documented as of this encounter Care Teams Linotype Mechanic Relationship Specialty Start Date End Date Jean Munoz MD [address] [place] [phone] PCP - General 12/31/08 Manny Rizzo MD [address] [place] [phone] 04/20/10 Afia Valle MD [address] [place] [address], [address] [place] [phone] Care Team Radiation Oncology 07/02/21 Jesi Leong, [facility] [address] [place] [phone] Behavioral Health Plant SuperintendentLicensed Sales Assistant Care 10/19/22 01/23/24 documented as of this encounter
--- OUTSIDE RECORDS SUMMARY | 2024-06-10 07:05 | XMS_ITS | Encounter Summary ---
Author Organization [facility] Address [address] [place] [address] Care Team Providers Care Communication Lecturer Name Role Phone Jean Munoz MD Primary Care Provider Manny Rizzo MD Unavailable Afia Valle MD Unavailable [phone] Jesi Leong Unavailable [phone] Reason for Visit * Reason Comments Follow-up Encounter Details Date Type Department Care Team (Latest Contact Info) Description 08/04/2023 13:00 EST Office Visit [facility] Pulmonology & Critical [facility] - [facility] [address] [place] [address] Duy Bynum MD Centrilobular emphysema (HCC-CMS) (Primary Dx) Social History Tobacco Use [...] PHQ-2 Answer Date Recorded PHQ-2 SUBTOTAL 3 08/03/2023 Hunger Vital Sign Answer Date Recorded Within [...] place to sleep or slept in a group home (including now)? Yes 07/15/2023 Interpersonal Safety [...] (96.5 ??F) 08/04/2023 1240 EST Respiratory Rate - - Oxygen Saturation 100% 08/04/2023 1240 EST Inhaled Oxygen Concentration - - Weight 70.5 kg (155 lb 8 oz) 08/04/2023 1240 EST Height 161.9 cm (5' 3.74) 08/04/2023 1240 EST Body Mass Index 26.91 08/04/2023 1240 EST documented in this encounter [...] as of this encounter Progress Notes * Duy Bynum MD - 08/04/2023 1300 EST Images from the original note were not included. PULMONARY CLINIC FOLLOW-UP VISIT Date: 08/04/23 14:50 Reason for Visit: Chronic Cough PCP: Jean Munoz Subjective: Ms. Viera is a 62 y.o. 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 Last seen on 01/27/2023. At that time, empiric ICS/LABA/LAMA for presumed reactive airway dise ase. Recommended barium swallow; scheduled 08/23/2023. Ms. Viera reports that unfortunately Trelegy was not approved by insurance. Recently relocated with some confusion regarding filling pharmacy. Trelegy was reordered by PCP due to insurance/pharmacy issues. Regardless currently not taking maintenance inhaler. Utilizing as needed Ventolin 3-4 times daily with good effect. Fortunately no exacerbations requiring hospitalization or outpatient antibiotic/steroid. Continues to abstain from smoking, however new partner is actively smoking. Intermittent chronic cough which is largely unchanged from previous evaluation. No fevers or chills. No upperrespiratory infections. Has already received flu, COVID vaccination. Pharmacy did not have RSV. Past medical, surgical, and family history updated in the medical record. Medications: Current Outpatient Medications: ??? benzonatate (TESSALON) 100 mg capsule, Take 1 Capsule by mouth 3 times daily as needed for Cough., Disp: 80 Capsule, Rfl: 3 ??? busPIRone (BUSPAR) 15 mg tablet, Take 1 Tablet by mouth 3 times daily., Disp: 270 Tablet, Rfl: 3 ??? cycloSPORINE (RESTASIS) 0.05 % ophthalmic emulsion, Place 1 drop into both eyes 2 times daily.,Disp: 1 vial, Rfl: 0 ??? docusate sodium (COLACE) 100 mg capsule, Take 1 Capsule by mouth 2 times daily as needed for Constipation., Disp: , Rfl: ??? doxycycline (VIBRA-TABS) 100 mg tablet, TAKE 1 TABLET BY MOUTH EVERY DAY for rosacea, Disp: 90 Tablet, Rfl: 3 ??? DULoxetine (CYMBALTA) 60 mg capsule, Take 2 Capsules by mouth daily. For depression, anxiety, Disp: 180 Each, Rfl: 3 ??? fexofenadine (JUDITH) 180 mg tablet, TAKE 1 TABLET BY MOUTH EVERY DAY for allergies, Disp: 90 Tablet, Rfl: 4 ??? vseuqktrxjx-cqcagibqn-jspbogcx (TRELEGY ELLIPTA) 200-62.5-25 mcg blister with device, Inhale 1 Puff as directed daily. (Patient not taking: Reported on 08/04/2023), Disp: 60 Each, Rfl: 5 ??? [START ON 09/09/2023] HYDROcodone-acetaminophen (NORCO) 7.5-325 mg per tablet, Take 1 Tablet bymouth every 6 hours for 28 days. For chronic pain. Daily Max: 4 Tablets, Disp: 112 Tablet, Rfl: 0 ??? [START ON 08/12/2023] HYDROcodone-acetaminophen (NORCO) 7.5-325 mg per tablet, Take 1 Tablet bymouth every 6 hours for 28 days. For chronic pain. Daily Max: 4 Tablets, Disp: 112 Tablet, Rfl: 0 ??? HYDROcodone-acetaminophen (NORCO) 7.5-325 mg per tablet, Take 1 Tablet by mouth every 6 hours for 28 days. For chronic pain. Daily Max: 4 Tablets, Disp: 112 Tablet, Rfl: 0 ??? hydroxypropyl methylcellulose (ISOPTO TEARS) 0.5 % ophthalmic solution, Place 1 Drop into both eyes 5 times daily., Disp: , Rfl: ??? ipratropium-albuteroL (DUONEB) 0.5 mg-3 mg(2.5 mg base)/3 mL nebulizer solution, Take 3 mL by nebulization every 4 hours as needed for Wheezing., Disp: 3 mL, Rfl: 3 ??? lancets, Brand: One Touch Delica, check blood glucose twice daily., Disp: 100 Each, Rfl: 3 ??? levalbuterol (XOPENEX HFA) 45 mcg/actuation inhaler, INHALE TWO PUFFS BY MOUTH EVERY 4 HOURS ASNEEDED FOR WHEEZING/SHORTNESS OF BREATH DIRECTED, Disp: 15 g, Rfl: 3 ??? lidocaine (XYLOCAINE) 2 % solution, 5 ML, mixed with 5 ml mylanta or maalox, swish and swallow for swallowing pain., Disp: 100 mL, Rfl: 2 ??? methocarbamoL (ROBAXIN) 500 mg tablet, TAKE TWO TABLETS BY MOUTH DAILY AT BEDTIME, Disp: 180 Tablet, Rfl: 1 ??? [START ON 09/09/2023] methylphenidate HCl (RITALIN;METHYLIN) 10 mg tablet, Take 1 Tablet by mouth daily for 28 days. For narcolepsy. Daily Max: 10 mg, Disp: 28 Tablet, Rfl: 0 ??? [START ON 08/12/2023] methylphenidate HCl (RITALIN;METHYLIN) 10 mg tablet, Take 1 Tablet by mouth daily for 28 days. For narcolepsy. Daily Max: 10 mg, Disp: 28 Tablet, Rfl: 0 ??? methylphenidate HCl (RITALIN;METHYLIN) 10 mg tablet, Take 1 Tablet by mouth daily for 28 days. For nacolepsy Daily Max: 10 mg, Disp: 28 Tablet, Rfl: 0 ??? [START ON 09/09/2023] methylphenidate HCl (RITALIN;METHYLIN) 20 mg tablet, Take 2 Tablets by mouth daily for 28 days. For narcolepsy. Daily Max: 40 mg, Disp: 56 Tablet, Rfl: 0 ??? [START ON 08/12/2023] methylphenidate HCl (RITALIN;METHYLIN) 20 mg tablet, Take 2 Tablets by mouth daily for 28 days. For narcolepsy. Daily Max: 40 mg, Disp: 56 Tablet, Rfl: 0 ??? methylphenidate HCl (RITALIN;METHYLIN) 20 mg tablet, Take 1 Tablet by mouth 2 times daily for 28 days. Daily Max: 40 mg, Disp: 56 Tablet, Rfl: 0 ??? montelukast (SINGULAIR) 10 mg tablet, TAKE 1 TABLET BY MOUTH EVERY DAY for allergies, Disp: 90 Tablet, Rfl: 3 ??? montelukast (SINGULAIR) 10 mg tablet, Take 1 Tab by mouth daily. For allergies (Patient not taking: Reported on 03/24/2023), Disp: 90 Tab, Rfl: 3 ??? omeprazole (PRILOSEC) 40 mg capsule, Take 1 Cap by mouth daily., Disp: 90 Cap, Rfl: 3 ??? ondansetron (ZOFRAN) 4 mg tablet, Take 1 Tablet by mouth every 8 hours as needed for Nausea., Disp: 30 Tablet, Rfl: 2 ??? ONETOUCH DELICA PLUS LANCET 33 gauge misc, , Disp: , Rfl: ??? ONETOUCH ULTRA TEST test strips, TEST 2 TIMES DAILY., Disp: 200 Each, Rfl: 3 ??? pregabalin (LYRICA) 300 mg capsule, TAKE ONE CAPSULE BY MOUTH TWICE DAILY *daily max 2 capsules, Disp: 180 Capsule, Rfl: 1 ??? promethazine (PHENERGAN) 25 mg tablet, Take 1 Tablet by mouth every 6 hours as needed for Nausea., Disp: 30 Tablet, Rfl: 2 ??? rOPINIRole (REQUIP) 2 mg tablet, TAKE 1 TABLET BY MOUTH NIGHTLY AT BEDTIME, Disp: 90 Tablet, Rfl: 3 ??? SUMAtriptan (IMITREX) 100 mg tablet, TAKE 1 TABLET BY MOUTH AT ONSET OF MIGRAINE, Disp: 9 Tablet, Rfl: 2 ??? zolpidem (AMBIEN) 5 mg tablet, Take 1 Tablet by mouth at bedtime. Daily Max: 5 mg, Disp: 28 Tablet, Rfl: 5 ROS: A 10-point review of systems was obtained and otherwise negative. Exam: BP 113/66 (BP Cuff Location: Right arm, BP Patient Position: Sitting, BP Cuff Sizes: Adult, regular) Pulse 71 Temp 35.8 ??C (96.5 ??F) (Tympanic) Ht 161.9 cm (63.74) Wt 70.5 kg (155 lb 8 oz) LMP 01/11/1987 SpO2 100% BMI 26.91 kg/m?? Gen: Appears stated age, NAD HENT: Nasal turbinates pink and non-inflamed. CV: RRR, S1/S2, no murmurs Lungs: Symmetric chest expansion. Clear to auscultation bilaterally. No rales, rhonchi, or wheezing. Abd: Soft, non-distended, normoactive bowel sounds, non-tender. Ext: No edema, clubbing or cyanosis. Skin: Warm and dry; no rashes or lesions visualized on exposed skin areas. Labs: Reviewed. Imaging CT Chest: 01/18/2023 --- Lungs and airways: ??Trachea appears normal. Again noted is a coalescing opacity within the central right upper lobe of lung consistent with radiation fibrosis, associated withsome nodular thickening of the upper portion of the right oblique fissure which has not changed. There is no significant change in the cystic lesion within the anterolateral left upper lobe in the subpleural region. Moderate emphysema is again seen bilaterally. There is diffuse airways thickening likely reflecting chronic bronchitis. There is some mild thickening of the right upper lobe bronchus and its segmental branches which also showed occlusion of the apical segmental bronchus to the rightupper lobe as seen previously without change. TTE: 12/28/2016 --- preserved EF [60 to 65%], normal RV, mildly elevated PA [35 mmHg] Pulmonary Function Testing Results: Spirometry: 06/16/21 --- moderate airflow limitation without BD response ? 01/27/23 --- stable moderate obstructive disease ?? Assessment: Ms. Viera is a 62 y.o. female with a PMH of former tobacco use [> 50 years; quit 2012], COPD,NSCLC??[[id number]] s/p EBRT [completed 08/20/21] c/b radiation fibrosis, chronic lower back pain [narcotics], GERD s/p Aspen fundoplication [2006], narcolepsy on methylphenidate, and MDD who presents today for evaluation of chronic cough. Last seen on 01/27/2023. At that time, empiric ICS/LABA/LAMA for presumed reactive airway disease. Recommended barium swallow; scheduled 08/23/2023. ?? Unfortunately due to insurance issues Trelegy was not dispensed and patient has not been on maintenance inhalers for the past 6 months. As expected utilizing rescue inhalers daily. Plan: COPD: - Trelegy [ICS/LABA/LAMA] 200; discuss with pharmacy/nursing regarding prior authorization - Continue as needed BETTE - Congratulated smoking cessation [quit in 2012] - Stable spirometry - Roflumilast self discontinued - PCV20 ?? Chronic Cough: >8 weeks in duration. Multitude of potential etiologies for chronic cough; postviral given preceding URI, uncontrolled reflux [recurrent aspiration of undigested content], allergic rhinitis with associated rhinorrhea, and poorly controlled obstructive lung disease [COPD]. - Trelegy [ICS/LABA/LAMA] 200 - Continue antihistamine; previously no benefit with intranasal steroid - Continue with daily PPI, diet modification - Barium Swallow ?? NSCLC: s/p EBRT [completed 08/20/21] c/b radiation fibrosis stable on interval imaging - Following with Radiation Oncology; currently ordering routine CT imaging Follow-up: 6 months Pt was seen, examined and discussed with Dr. Virk. Duy Bynum MD [facility] Fellow Attestation: I performed or was present during the horton or critical portions of the visit and participated in the management of the patient on 08/04/2023. I agree with the findings and plan of care documented in the resident's/fellow's note. Jeanette Virk MD 08/04/2023 14:55 documented in this encounter Plan of Treatment Upcoming Encounters Date Type Department Care Team (Late st Contact Info) Description 06/29/2024 14:[address] [facility] [place] [address], [place] [id number] Jean Munoz MD [address] [place] [address] documented as of this encounter Visit Diagnoses Diagnosis Centrilobular emphysema ([facility]-CMS)- Primary Other emphysema Screening for osteoporosis- Primary [...] Discontinue Reason Start Date End Da te Ciclesonide 50 mcg spray,non-aerosolIndica tions:Seasonal allergic rhinitis, unspecified trigger 1 spray each nostril daily Patient Stopped Taking 03/03/2018 08/04/2023 roflumilast (DALIRESP) 500 mcg tabletIndications:Chron ic obstructive pulmonary disease, unspecified COPD type (HCC-CMS) Take 1 Tablet by mouth daily. Patient Stopped Taking 03/25/2023 08/04/2023 documented as of this encounter Orders Immunization/Injection Count Last Ordered Date First Ordered Date PNEUMOCOCCAL CONJUGATE VACCI NE 20-VALENT (PCV20) (PREVNAR-20) 0.5 ML IM (6 WKS+) 1 08/04/2023 documented in this encounter Care Teams Communication Lecturer Relationship Specialty Start Date End Date Jean Munoz MD [address] [place] [address] PCP - General 12/31/08 Manny Rizzo MD [address] [place] [address] 04/20/10 Afia Valle MD [address] [facility] [address] [place] [address] MD Care Team Radiation Oncology 07/02/21 Jesi Leong, [facility] [address] [place] [address] Behavioral Health Safe Deposit AttendantIndustrial Electrician Journeyman Care 10/19/22 01/23/24 documented as of this encounter
--- OUTSIDE RECORDS SUMMARY | 2024-06-10 07:05 | XMS_ITS | Encounter Summary ---
Author Organization [facility] Address [address] [place] [address] Care Team Providers Care Router Operator Name Role Phone Jean Munoz MD Primary Care Provider Manny Rizzo MD Unavailable Afia Valle MD Unavailable [phone] Jesi Leong CLINICAL LABORATORY DIRECTOR Unavailable [phone] Reason for Visit * Reason Comments Depression Encounter Details Date Type Department Care Team (Late st Contact Info) Description 06/08/2023 13:30 EDT Telemedicine [facility] [address] [place] [address] Jesi Leong CLINICAL LABORATORY DIRECTOR [address] [place] [address] Current moderate episode of major [...] PHQ-2 Answer Date Recorded PHQ-2 SUBTOTAL 2 06/08/2023 Hunger Vital Sign Answer Date Recorded Within [...] slept in a senior living (including now)? No 07/30/2022 Interpersonal Safety Answer [...] this encounter Progress Notes * Jesi Leong, CLINICAL LABORATORY DIRECTOR - 06/08/2023 1330 EDT Images from the original note were not included. Primary Care Mental Health Integration Behavioral Health Seismic Prospecting Supervisor Follow-up Collaborative Care / Psychotherapy Note Date of Service: 06/08/2023 Time of Service: 1:30pm Total Time: 29 minutes Collaborative Care Time Spent: 2 minutes Psychotherapy Time Spent: 27 minutes Psychotherapy Procedure Code: [id number] 16-37mins individual f/u Appointment took place via telephone with patient. Started via Video, however Liset could not see this commercial real estate underwriter via video so we swapped to telephone. This visit was conducted by telephone. I spent a total of 29 minutes in discussion with the patientas described [...] for Visit Chief Complaint Patient presents with ??? Depression Rationale for This Session Cognitive Behavior Therapy and Behavioral Activation is indicated to treat anxiety and depression and has been empirically documented to be effective in the treatment of this patient's condition. Rationale for Frequency and Duration of Services Consistent with patient request and treatment modality Information obtained from: patient interview Subjective Liset reports feeling yucky, sharing thoughts of life ending, just go to sleep and not wake. Together we completed [place] Suicide Severity Rating Scale and Morteza Mobii Safety Plan. Liset deniesany plan or intention to end her life; she articulates her reason for living is her daughter, Yadira, and her partner, Robert. Consent provided to talk to Robert now and in the future should concerns for Liset's safety indicate. Robert's phone number is: [phone]. Will asked to speak with this commercial real estate underwriter today, with Liset's consent. Robert states so depressing being homeless. All we want to do is havea good life and be peaceful. Articulates how it feels so hard to get ahead in [place]. Liset returns to phone sharing while they do have a good Escrow Agent, anytime a unit comes online for lease,the pool of applicants that landlords can choose from is large. Thus far, they have not been chosen. Liset identifies she's been unable to go to the local [facility] due to transportation barriers;discussed [employer] however Liset shared they will not drive her door to door. Encouraged her to phone T at [phone] for Medicaid Rides (future visit w/ Dr. Munoz on 06/15, suggested exploring in case her friend who is planning to drive her next week has something come up). Objective Mental Status Examination Appearance: Only briefly saw Liset via video, she was casually dressed, well groomed and appeared WNL. Behavior: readily engaged in discussion Alertness: alert Speech: speech is of normal rate, tone, and spontaneity, use of language is is normal. Orientation: to person, place, time and situation Mood: depressed Affect: flat Thought Process: organized. Memory: intact Judgment:fair Validated Behavioral Health Measures 03/22/2023 11:54 03/22/2023 11:56 04/05/2023 10:07 04/05/2023 10:09 05/11/2023 13:57 06/08/2023 12:35 06/08/2023 12:36 Risk Totals: MFQ, PHQ-9A, PHQ-2/PHQ-9, and HEYDI-7 PHQ-2 2 2 5 2 PHQ-9 10 9 14 8 PHQ-9 Interpretation Moderate Depression Mild Depression Moderate Depression Mild Depression HEYDI-2 3 2 5 3 HEYDI-7 11 11 18 8 HEYDI-7 Interpretation Moderate Anxiety Moderate Anxiety Severe Anxiety Mild Anxiety Current Medications Current Outpatient Medications Medication Sig Dispense Refill ??? benzonatate (TESSALON) 100 mg capsule Take 1 Capsule by mouth 3 times daily as needed for Cough. 80 Capsule 3 ??? busPIRone (BUSPAR) 15 mg tablet Take 1 Tablet by mouth 3 times daily. 270 Tablet 3 ??? Ciclesonide 50 mcg spray,non-aerosol 1 spray each nostril daily 37.5 g 5 ??? cycloSPORINE (RESTASIS) 0.05 % ophthalmic emulsion Place 1 drop into both eyes 2 times daily. 1vial 0 ??? docusate sodium (COLACE) 100 mg capsule Take 1 Capsule by mouth 2 times daily as needed for Constipation. ??? doxycycline (VIBRA-TABS) 100 mg tablet TAKE 1 TABLET BY MOUTH EVERY DAY for rosacea 90 Tablet 3 ??? DULoxetine (CYMBALTA) 60 mg capsule Take 2 Capsules by mouth daily. For depression, anxiety 180Each 3 ??? fexofenadine (JUDITH) 180 mg tablet TAKE 1 TABLET BY MOUTH EVERY DAY for allergies 90 Tablet 4 ??? unluiqemzlz-asvfhcemv-pwnoqwoc (TRELEGY ELLIPTA) 200-62.5-25 mcg blister with device Inhale 1 Puff as directed daily. 60 Each 5 ??? HYDROcodone-acetaminophen (NORCO) 7.5-325 mg per tablet Take 1 Tablet by mouth every 6 hours for 25 days. For chronic pain. Daily Max: 4 Tablets 100 Tablet 0 ??? HYDROcodone-acetaminophen (NORCO) 7.5-325 mg per tablet Take 1 Tablet by mouth every 6 hours for 28 days. For chronic pain. Daily Max: 4 Tablets 112 Tablet 0 ??? HYDROcodone-acetaminophen (NORCO) 7.5-325 mg per tablet Take 1 Tablet by mouth every 6 hours for 28 days. For chronic pain. Daily Max: 4 Tablets 112 Tablet 0 ??? hydroxypropyl methylcellulose (ISOPTO TEARS) 0.5 % ophthalmic solution Place 1 Drop into both eyes 5 times daily. ??? ipratropium-albuteroL (DUONEB) 0.5 mg-3 mg(2.5 mg base)/3 mL nebulizer solution Take 3 mL by nebulization every 4 hours as needed for Wheezing. 3 mL 3 ??? lancets Brand: One Touch Delica, check blood glucose twice daily. 100 Each 3 ??? levalbuterol (XOPENEX HFA) 45 mcg/actuation inhaler INHALE 2 PUFFS BY MOUTH EVERY 4 HOURS NEEDED FOR WHEEZING/SHORTNESS OF BREATH DIRECTED. 45 g 1 ??? lidocaine (XYLOCAINE) 2 % solution 5 ML, mixed with 5 ml mylanta or maalox, swish and swallow for swallowing pain. 100 mL 2 ??? methocarbamoL (ROBAXIN) 500 mg tablet Take 2 Tablets by mouth at bedtime. 180 Tablet 1 ??? methylphenidate HCl (RITALIN;METHYLIN) 20 mg tablet Take 2 Tablets by mouth daily for 28 days. For narcolepsy. Daily Max: 40 mg 56 Tablet 0 ??? methylphenidate HCl (RITALIN;METHYLIN) 10 mg tablet Take 1 Tablet by mouth daily for 28 days. For narcolepsy. Daily Max: 10 mg 28 Tablet 0 ??? methylphenidate HCl (RITALIN;METHYLIN) 10 mg tablet Take 1 Tablet by mouth daily for 28 days. For nacolepsy Daily Max: 10 mg 28 Tablet 0 ??? methylphenidate HCl (RITALIN;METHYLIN) 10 mg tablet Take 1 Tablet by mouth daily for 28 days. For narcolepsy. Daily Max: 10 mg 28 Tablet 0 ??? methylphenidate HCl (RITALIN;METHYLIN) 20 mg tablet Take 2 Tablets by mouth daily for 28 days. For narcolepsy. Daily Max: 40 mg 56 Tablet 0 ??? montelukast (SINGULAIR) 10 mg tablet TAKE 1 TABLET BY MOUTH EVERY DAY for allergies 90 Tablet 3 ??? montelukast (SINGULAIR) 10 mg tablet Take 1 Tab by mouth daily. For allergies (Patient not taking: Reported on 03/24/2023) 90 Tab 3 ??? omeprazole (PRILOSEC) 40 mg capsule Take 1 Cap by mouth daily. 90 Cap 3 ??? ondansetron (ZOFRAN) 4 mg tablet Take 1 Tablet by mouth every 8 hours as needed for Nausea. 30 Tablet 2 ??? ONETOUCH DELICA PLUS LANCET 33 gauge misc ??? ONETOUCH ULTRA TEST test strips TEST 2 TIMES DAILY. 200 Each 3 ??? pregabalin (LYRICA) 300 mg capsule TAKE ONE CAPSULE BY MOUTH TWICE DAILY *daily max 2 capsules 180 Capsule 1 ??? promethazine (PHENERGAN) 25 mg tablet Take 1 Tablet by mouth every 6 hours as needed for Nausea. 30 Tablet 2 ??? roflumilast (DALIRESP) 500 mcg tablet Take 1 Tablet by mouth daily. 90 Tablet 3 ??? rOPINIRole (REQUIP) 2 mg tablet TAKE 1 TABLET BY MOUTH NIGHTLY AT BEDTIME 90 Tablet 3 ??? SUMAtriptan (IMITREX) 100 mg tablet TAKE 1 TABLET BY MOUTH AT ONSET OF MIGRAINE. 9 Tablet 1 ??? zolpidem (AMBIEN) 5 mg tablet Take 1 Tablet by mouth at bedtime. Daily Max: 5 mg 28 Tablet 5 No current facility-administered medications for this visit. Psychopharmacology: Compliance:compliant all of the time Effectiveness:Yes Side Effects: None reported. Assessment (include DSM V diagnosis, progress since last session, and decision making regarding treatment plan) Liset is a 62 y.o. female presenting with (F32.1) Current moderate episode of major depressive disorder, unspecified whether recurrent ([facility]) (primary encounter diagnosis) Liset shares today passive suicidal ideation that has been waxing and waning; she denies any currentplan or intent to end her life by suicide or engage in any attempts of self-harm. Liset engaged in writing a Safety Plan with this commercial real estate underwriter. (See below). Liset identifies returning to her shaggy as behavioral activation activity. She shares she has a blanket she had been working on gotta get back into my shaggy. Homelessness is a main motor bus driver of Liset's depressive symptoms and suicidal ideation. Liset will continue to work with their operations and maintenance manager, Radha on applying for units. Liset is feeling very stuck in their situation, despite her monthly social security income and Will's employment income, a landlord has yet to choose them to sign a lease. Liset expresses feeling defeated by [employer] in [place]. Liset is aware we have three more visits left within [facility]. This commercial real estate underwriter asks Liset to return in two weeks (rather than one month out) due to her current suicidal ideation. Chuy discuss next visit this commercial real estate underwriter's recommendation for further outpatient psychotherapy upon the conclusion of this [facility] episode of care. Stage of Change: Action Recommendations and Plan 1. Recommended Level of Care: Brief Intervention, Outpatient Psychotherapy 2. Continue current treatment plan 3. Follow up is scheduled for June 22, 2023 at 1:30pm via MyChart Zoom. 4. Complete Skills Practice: Behavioral Activation, work on shaggy blanket at least 3 distinct times per week. 5. Care Management Needs: Meeting w/ Dr. Munoz on 06/15 as planned. 6. Continue current pharmacotherapy as applicable. ??? Expectations of Next Session: Continue current treatment plan ??? Anticipated Length of Treatment:3 additional every other week or monthly sessions ??? Anticipated Duration of Sessions: 30 minutes FADUMO Salcedo 06/08/2023 14:10 Nito Safety Plan Creation Date: 06/08/23 Step 1: Warning signs: Warning Signs every now and then I that's the way I just feel, reports no triggers. Step 2: Internal coping strategies - Things I can do to take my mind off my problems without contacting another person: Strategies Go to sleep (nap) Hang with cats Step 3: People and social settings that provide distraction: Name Contact Information Will (partner) [phone] Yadira (Daughter) Places My friend Trina a few doors down Step 4: People whom I can ask for help during a crisis: Name Contact Information Will [facility] [phone] Step 5: Professionals or agencies I can contact during a crisis: Clinician/Agency Name Phone Emergency Contact FADUMO Miguel [phone] Local Emergency Department Emergency Department Address Emergency Department Phone [address] Suicide Prevention Lifeline Phone: Call or Text 401 Crisis Text Line: Text HOME to 959856 Step 6: Making the environment safer (plan for lethal means safety): This commercial real estate underwriter discussed medication safety; Liset declined to create a plan with her medication. Optional: What is most important to me and worth living for?: My daughter, Robert (partner). Nito Safety Plan. Deidre [employer]. Used with permission of the authors. documented in this encounter Plan of Treatment Upcoming Encounters Date Type Department Care Team (Late st Contact Info) Description 06/29/2024 14:15 EDT Office Visit [address] [phone] Jean Munoz MD [address] [place] [address] documented as of this encounter Visit Diagnoses Diagnosis Current moderate episode of major depressive disorder, unspecified whether recurrent ([facility])- Primary Screening for osteoporosis- Primary Special screening for osteoporosis Primary narcolepsy without cataplexy Chronic pain syndrome Chronic low back pain Lumbago Chronic use of opiate for therapeutic purpose Pain medication agreement Encounter for long-term (current) use of other medications Screen for colon cancer Special screening for malignant neoplasms, colon documented in this encounter Care Teams Router Operator Relationship Specialty Start Date End Date Jean Munoz MD [address] [place] [phone] PCP - General 12/31/08 Manny Rizzo MD [address] [place] [phone] 04/20/10 Afia aVlle MD [address] [place] [address] [address] [place] [phone] Care Team Radiation Oncology 07/02/21 Jesi Leong, [facility] [address] [place] [phone] Behavioral Health Seismic Prospecting SupervisorCarpet Technician Care 10/19/22 01/23/24 documented as of this encounter
--- OUTSIDE RECORDS SUMMARY | 2024-06-10 07:05 | XMS_ITS | Encounter Summary ---
Author Organization [facility] Address [address] [place] [address] Care Team Providers Care Operating Theatre Technician Name Role Phone Jean Munoz MD Primary Care Provider Manny Rizzo MD Unavailable Afia Valle MD Unavailable [phone] Jesi Leong Unavailable Reason for Visit * Reason Comments Medications Refill Encounter Details Date Type Department Care Team (Late st Contact Info) Description 07/21/2023 Refill [facility] [address] [place] [address] Jean Munoz MD [address] [place] [address] Medications Refill Social History Tobacco [...] PHQ-2 Answer Date Recorded PHQ-2 SUBTOTAL 2 07/15/2023 Hunger Vital Sign Answer Date Recorded Within [...] End Da te methocarbamoL (ROBAXIN) 500 mg tabletIndications:Chron ic pain syndrome TAKE TWO TABLETS BY MOUTH DAILY AT BEDTIME 180 Tablet 1 07/22/2023 10/06/2023 SUMAtriptan (IMITREX) 100 mg tabletIndications:Migra ine without status migrainosus, not intractable, unspecified migraine type TAKE 1 TABLET BY MOUTH AT ONSET OF MIGRAINE 9 Tablet 2 07/22/2023 10/06/2023 documented in this encounter Miscellaneous Notes * Telephone Encounter - Armand Chapman RN - 07/22/2023 1000 EST Requested Prescriptions Pending Prescriptions Disp Refills ??? SUMAtriptan (IMITREX) 100 mg tablet [Pharmacy Med Name: SUMATRIPTAN SUCCINATE 100MG TABS] 9 Tablet 1 Sig: TAKE 1 TABLET BY MOUTH AT ONSET OF MIGRAINE ??? methocarbamoL (ROBAXIN) 500 mg tablet [Pharmacy Med Name: METHOCARBAMOL 500MG TABS] 60 Tablet 2 Sig: TAKE TWO TABLETS BY MOUTH DAILY AT BEDTIME Pharmacy: [facility] Last Refill Date: Methocarbamol: 07/14/22 Sumatriptan: 05/31/23 Last Visit Date: 07/15/23 Next Non-Acute Visit Date Scheduled with Care Team: Yes. 08/03/2023 ARMAND CHAPMAN RN 07/22/2023 10:00 documented in this encounter Plan of Treatment Upcoming Encounters Date Type Department Care Team (Late st Contact Info) Description 06/29/2024 14:15 EDT Office Visit [facility] [address] [place] [address] Jean Munoz MD [address] [place] [phone] documented as of this encounter Visit Diagnoses Diagnosis Migraine without status migrainosus, not intractable, unspecified migraine type Chronic pain syndrome Screening for osteoporosis- Primary Special screening for [...] TABLET BY MOUTH AT ONSET OF MIGRAINE. 05/31/2023 07/22/2023 methocarbamoL (ROBAXIN) 500 mg tabletIndications:Chroni c pain syndrome Take 2 Tablets by mouth at bedtime. 07/14/2022 07/22/2023 documented as of this encounter Care Teams Operating Theatre Technician Relationship Specialty Start Date End Date Jean Munoz MD [address] [place] [address] PCP - General 12/31/08 Manny Rizzo MD [address] [place] [phone] 04/20/10 Afia Valle MD [address] [facility], [address] [place] [phone] MD Care Team Radiation Oncology 07/02/21 Jesi Leong, [facility] [address] [place] [address] Behavioral Health Drying Oven AttendantLine Camera Operator Care 10/19/22 01/23/24 documented as of this encounter
--- OUTSIDE RECORDS SUMMARY | 2024-06-10 07:05 | XMS_ITS | Encounter Summary ---
Author Organization [facility] Address [address] [place] [address] Care Team Providers Care Obstetrics Specialist Name Role Phone Jean Munoz MD Primary Care Provider Manny Rizzo MD Unavailable Afia Valle MD Unavailable Jesi Leong Unavailable [phone] Reason for Visit * Reason Onset Date Comments Appointment Related 08/09/2023 Called fouzia grubbs to let her know Dr. Bynum had a change to his schedule, patient understood and agreed to come in on 2023 at 1430. Encounter Details Date Type Department Care Team (Late st Contact Info) Description 08/09/2023 Telephone [facility] Pulmonology & Critical Care - [facility] [address] [place], [place] [phone] Duy Bynum MD Appointment Related (Called patient to let her know Dr. Bynum had a change to his schedule, patient understood and agreed to come in on 2023 at 1430.) Social History Tobacco Use Types Packs/Day Years [...] Yes 05/26/2018 Cognitive Status Response Date of [facility] ent Because of a physical, menta l, or emotional condition, does this person have serious difficulty concentrating, remembering, or making decisions? Yes 05/26/2018 documented as of this encounter Miscellaneous Notes * Telephone Encounter - Bailey Garner - 08/09/2023 1003 EST Called patient to let her know Dr. Bynum had a change to his schedule, patient understood and agreed to come in on 2023 at 1430. documented in this encounter Plan of Treatment Upcoming Encounters Date Type Department Care Team (Late st Contact Info) Description 06/29/2024 14:15 EDT Office Visit [facility] [address] [place] [address] Jean Munoz MD [address] [place] [address] documented as of this encounter Visit Diagnoses Not on filedocumented in this encounter Care Teams Obstetrics Specialist Relationship Specialty Start Date End Date Jean Munoz MD [address] [place] [phone] PCP - General 12/31/08 Manny Rizzo MD [facility] [place] [phone] 04/20/10 Afia Valle MD [address] [place] [address] [address] [place] [phone] MD Care Team Radiation Oncology 07/02/21 Jesi Leong, [facility] [address] [place] [address] Behavioral Health Edge BasterDie Maker Apprentice Care 10/19/22 01/23/24 documented as of this encounter
--- OUTSIDE RECORDS SUMMARY | 2024-06-10 07:05 | XMS_ITS | Encounter Summary ---
Author Organization [facility] Address [address] [place] [address] Care Team Providers Care Inserter Promotional Item Name Role Phone Jean Munoz MD Primary Care Provider Manny Rizzo MD Unavailable Afia Valle MD Unavailable [phone] Jesi Leong Unavailable [phone] Reason for Visit * Reason Comments Medications Refill Encounter Details Date Type Department Care Team (Late st Contact Info) Description 06/29/2023 Refill [facility] Medicine [facility] [address] [place] [address] Jean Munoz MD [address] [place] [address] Medications Refill Social History Tobacco [...] or slept in a snf (including now)? No 07/30/2022 Interpersonal Safety Answer [...] Da te levalbuterol (XOPENEX HFA) 45 mcg/actuation inhalerIndications:Panlob ular emphysema (HCC-CMS) INHALE TWO PUFFS BY MOUTH EVERY 4 HOURS NEEDED FOR WHEEZING/SHORTNESS OF BREATH DIRECTED 15 g 3 06/29/2023 10/06/2023 documented in this encounter Miscellaneous Notes * Telephone Encounter - Shahrzad Claudio RN - 06/29/2023 1310 EDT Levalbuterol 45 mcg/actuation inhaler 2 puffs q4 hrs prn Last sent 10/07/22, qt 45g w/1 inhaler Last OV: 03/24/23 F/u scheduled 07/15/23 SHAHRZAD CLAUDIO RN 06/29/2023 13:12 documented in this encounter Plan of Treatment Upcoming Encounters Date Type Department Care Team (Late st Contact Info) Description 06/29/2024 14:15 EDT Office Visit [facility] [address] [place] [address] Jean Munoz MD [address] [place] [address] documented as of this encounter Visit Diagnoses Diagnosis Panlobular emphysema (HCC-CMS) Other emphysema Screening for osteoporosis- Primary Special [...] Da te levalbuterol (XOPENEX HFA) 45 mcg/actuation inhalerIndications:Panlo bular emphysema (HCC-CMS) INHALE 2 PUFFS BY MOUTH EVERY 4 HOURS NEEDED FOR WHEEZING/SHORTNESS OF BREATH DIRECTED. 10/07/2022 06/29/2023 documented as of this encounter Care Teams Inserter Promotional Item Relationship Specialty Start Date End Date Jean Munoz MD [address] [place] [address] PCP - General 12/31/08 Manny Rizzo MD [address] [place] [phone] 04/20/10 Afia Valle MD [address] [facility], [address] [place] [phone] Care Team Radiation Oncology 07/02/21 Jesi Leong, [facility] [address] [place] [phone] Behavioral Health Director Of Sports MedicineWeigher And Grader Care 10/19/22 01/23/24 documented as of this encounter
--- OUTSIDE RECORDS SUMMARY | 2024-06-10 07:05 | XMS_ITS | Encounter Summary ---
Author Organization [facility] Address [address] [place] [address] Care Team Providers Care Bingo Floater Name Role Phone Jean Munoz MD Primary Care Provider Manny Rizzo MD Unavailable Afia Valle MD Unavailable [phone] Jesi Leong CHAIR CANER Unavailable [phone] Reason for Visit * Reason Comments Depression Anxiety Encounter Details Date Type Department Care Team (Late st Contact Info) Description 03/22/2023 15:00 EDT Telemedicine [facility] [address] [place] [address] Jesi Leong CHAIR CANER [address] [place] [address] Current moderate episode of major [...] PHQ-2 Answer Date Recorded PHQ-2 SUBTOTAL 2 03/22/2023 Hunger Vital Sign Answer Date Recorded Within [...] place to sleep or slept in a prison (including now)? No 07/30/2022 Interpersonal Safety Answer [...] Progress Notes * Jesi Leong LICSW - 03/22/2023 1500 EDT Primary Care Mental Health Integration Behavioral Health Breaker Machine Tender Follow-up Collaborative Care / Psychotherapy Note Date of Service: 03/22/2023 Time of Service: 3pm Total Time: 22 minutes Collaborative Care Time Spent: 2 minutes Psychotherapy Time Spent: 20 minutes Psychotherapy Procedure Code: 26606 16-37mins individual f/u Appointment took place via televideo with patient. TELEMEDICINE VIDEO VISIT Today's visit was provided through telemedicine video conferencing: I have reviewed the appropriateness of using video technology with the patient with regards to today's visit. The location of the patient : Home Patient location state: Visit Location State: [place] The location of the provider: Office Provider location state: Visit Location State: [place] The following people and their roles were present for today's visit: Appointment Provider: Jesi Leong LICSW Jessica E Denton, LICSW Chief Complaint/Reason for Visit Chief Complaint Patient presents with ??? Depression ??? Anxiety Rationale for This Session Cognitive Behavior Therapy and Behavioral Activation is indicated to treat anxiety and depression and has been empirically documented to be effective in the treatment of this patient's condition. Rationale for Frequency and Duration of Services Consistent with patient request and treatment modality Information obtained from: patient interview Subjective Liset reports stuck in hotel room, no space to do anything has her mood down. Liset states she is trying to take things day by day. [facility] and shares little bit more hopeful. Liset reflects on dynamics within relationships (ex-spouse, her brother, her daughter); somedynamics support her and some are more challenging. Worries about brother, grateful for support of daughter from [place]. Liset expresses gratitude that she was able to bring her two younger cats to [facility] under emotional support animals, [place]. Shares they've been with her now for about one week and their presence has been very helpful to her mood symptoms. Trying to connect with oth ers who are living there; making meals for she and Will daily. Use of distraction (play games on computer) to take her mind off worries, use of mantra things got to get better. Open to CBT activity, will mail. Objective Mental Status Examination Appearance: casually dressed, well groomed, and appears WNL. Behavior: readily engaged in discussion Alertness: alert Speech: speech is of normal rate, tone, and spontaneity, use of language is is normal. Orientation: to person, place, time and situation Mood: down Affect: full range Thought Process: organized and future oriented. Memory: intact Judgment:fair Validated Behavioral Health Measures Risk Totals: MFQ, PHQ-9A, PHQ-2/PHQ-9, and HEYDI-7 04/24/2021 12/24/2021 10/19/2022 11/24/2022 01/05/2023 02/16/2023 03/22/2023 PHQ-2 2 6 5 3 3 2 2 PHQ-9 - 26 17 9 16 10 10 PHQ-9 Interpretation - Severe Depression Moderately Severe Depression Mild Depression Moderately Severe Depression Moderate Depression Moderate Depression HEYDI-2 - 6 6 3 5 4 3 HEYDI-7 - 21 20 13 17 12 11 HEYDI-7 Interpretation - Severe Anxiety Severe Anxiety Moderate Anxiety Severe Anxiety Moderate Anxiety Moderate Anxiety Current Medications Current Outpatient Medications Medication [...] docusate sodium (COLACE) 100 mg capsule Take 100 mg by mouth 2 times daily as needed for Constipation. ??? doxycycline (VIBRA-TABS) 100 mg tablet TAKE 1 TABLET BY MOUTH EVERY DAY for rosacea 90 Tablet 3 ??? DULoxetine (CYMBALTA) 60 mg capsule Take 2 Capsules by mouth daily. For depression, anxiety 180Each 3 ??? fexofenadine (JUDITH) 180 mg tablet TAKE 1 TABLET BY MOUTH EVERY DAY for allergies 90 Tablet 4 ??? xtchrcxhbpu-hzcrngpao-plqqcoig (TRELEGY ELLIPTA) 200-62.5-25 mcg blister with device [...] 180 Tablet 1 ??? methylphenidate HCl (RITALIN;METHYLIN) 10 mg tablet Take 1 Tablet by mouth daily for 28 days. For narcolepsy. Daily Max: 10 mg 28 Tablet 0 ??? methylphenidate HCl (RITALIN;METHYLIN) 20 mg tablet Take 2 Tablets by mouth daily for 28 days. For narcolepsy. Daily Max: 40 mg 56 Tablet 0 ??? methylphenidate HCl (RITALIN;METHYLIN) 20 mg tablet Take 2 Tablets by mouth daily for 28 days. For narcolepsy. Daily Max: 40 mg 56 Tablet 0 ??? methylphenidate HCl (RITALIN;METHYLIN) 20 [...] Max: 10 mg 28 Tablet 0 ??? montelukast (SINGULAIR) 10 mg tablet TAKE 1 TABLET BY MOUTH EVERY DAY for allergies (Patient not taking: No sig reported) 90 Tablet 3 ??? montelukast (SINGULAIR) 10 mg tablet Take 1 Tab by mouth daily. For allergies 90 Tab 3 ??? omeprazole (PRILOSEC) 40 mg capsule Take 1 Cap by mouth daily. 90 Cap 3 ??? ondansetron (ZOFRAN) 4 mg tablet TAKE ONE TABLET BY MOUTH DAILY NEEDED for nausea 30 Tablet 2 ??? ONETOUCH DELICA PLUS LANCET 33 gauge misc ??? ONETOUCH ULTRA TEST test strips TEST 2 TIMES DAILY. 200 Each 3 ??? pregabalin (LYRICA) 300 mg capsule TAKE ONE CAPSULE BY MOUTH TWICE DAILY *daily max 2 capsules 180 Capsule 1 ??? promethazine (PHENERGAN) 25 mg tablet TAKE ONE TABLET BY MOUTH EVERY SIX HOURS NEEDED for nausea 30 Tablet 1 ??? roflumilast (DALIRESP) 500 mcg tablet Take 1 Tablet by mouth daily. 90 Tablet 3 ??? rOPINIRole (REQUIP) 2 mg tablet TAKE 1 TABLET BY MOUTH NIGHTLY AT BEDTIME 90 Tablet 3 ??? SUMAtriptan (IMITREX) 100 mg tablet TAKE 1 TABLET BY MOUTH ONCE NEEDED FOR UP TO 1 DOSE FOR MIGRAINE. 9 Tablet 3 ??? zolpidem (AMBIEN) 5 mg tablet Take 1 Tablet by mouth at bedtime. Daily Max: 5 mg 28 Tablet 5 No current facility-administered medications for this visit. Psychopharmacology: Compliance:compliant all of the time Effectiveness:Yes Side Effects:No Assessment (include DSM V diagnosis, progress since last session, and decision making regarding treatment plan) Liset is a 62 y.o. female presenting with (F32.1) Current moderate episode of major depressive disorder, unspecified whether recurrent (HCC) (primary encounter diagnosis) Liset denies any current or recent suicidal ideation, plan or intent. Liset has not regressed in her progress, however maintains moderate symptoms of depression and anxiety. Liset feels that her symptoms will shift when her environment changes. She is working with Housing Case Management to move into a two bedroom unit. Her hope is to have her brother move in with herself and her partner, Will. Kadie utilizing mindfulness strategies for coping and discussed restructuring thoughts today with thiswriter as an additional tool. This typewriters functional tester agreed to mail Liset some CBT materials that address mood and anxiety for our review / discussion next visit. Discussed the goals Liset created in December, no changes, maintain treatment plan as previously created. Stage of Change: Action Recommendations and Plan 1. Recommended Level of Care: Brief Intervention 2. Continue current treatment plan 3. Follow up is scheduled for April 05, 2023 at 3pm by Triston Longoria. 4. Complete Skills Practice: Mindfulness 5. Care Management Needs: None at this time. 6. Continue current pharmacotherapy as applicable. ??? Expectations of Next Session: Continue current treatment plan ??? Anticipated Length of Treatment:6 additional every other week sessions ??? Anticipated Duration of Sessions: 30 minutes FADUMO Salcedo 03/22/2023 15:25 documented in this encounter Plan of Treatment Upcoming Encounters Date Type Department Care Team (Late st Contact Info) Description 06/29/2024 14:15 EDT Office Visit [facility] [address] [place], [place] [id number] Jean Munoz MD [address] [place] [address] documented as of this encounter Visit Diagnoses Diagnosis Current moderate episode of major depressive disorder, unspecified whether recurrent ([facility])- Primary Screening for osteoporosis- Primary Special screening for osteoporosis Primary narcolepsy without cataplexy Chronic pain syndrome Chronic low back pain Lumbago Chronic use of opiate for therapeutic purpose Pain medication agreement Encounter for long-term (current) use of other medications Screen for colon cancer Special screening for malignant neoplasms, colon documented in this encounter Care Teams Bingo Floater Relationship Specialty Start Date End Date Jean Munoz MD [address] [place] [address] PCP - General 12/31/08 Manny Rizzo MD [address] [place] [phone] 04/20/10 Afia Valle MD [address] [place] [address] 2 [place] [phone] MD Care Team Radiation Oncology 07/02/21 Jesi Leong, [facility] [address] [place] [address] Behavioral Health Breaker Machine TenderBundler Seasonal Greenery Care 10/19/22 01/23/24 documented as of this encounter
--- OUTSIDE RECORDS SUMMARY | 2024-06-10 07:05 | XMS_ITS | Encounter Summary ---
Author Organization [facility] Address [address] [place] [address] Care Team Providers Care Teleprinter Installer Name Role Phone Jean Munoz MD Primary Care Provider Manny Rizzo MD Unavailable Afia Valle MD Unavailable Jesi Leong Unavailable Reason for Visit * Reason Comments Medications Refill Encounter Details Date Type Department Care Team (Late st Contact Info) Description 06/19/2023 Refill [facility] Medicine [facility] [address] [place] [address] Jean Munoz MD [address] [place] [address] Medications Refill Social History Tobacco [...] a [place] [facility] [place] facility (including now)? No 07/30/2022 Interpersonal Safety Answer [...] Telephone Encounter - Caroline Hsieh RN - 06/21/2023 1503 EDT Images from the original note were not included. Requested Prescriptions Pending Prescriptions Disp Refills ??? zolpidem (AMBIEN) 5 mg tablet [Pharmacy Med Name: ZOLPIDEM TARTRATE 5MG TABS] 28 Tablet 2 Sig: TAKE 1 TABLET BY MOUTH NIGHTLY AT BEDTIME. DAILY MAX: 1 TABLET (5 MG) [facility]acy: [facility] Last Refill Date: 05/22 Last Visit Date: 03/24/23 Next Non-Acute Visit Date Scheduled with Care Team: Yes. 06/22/2023 Last refill 05/22 #28 rx written 03/03 has 5 refills, according to [facility] pt has only filled 3 times. CAROLINE DELGADILLO RN 06/21/2023 15:05 documented in this encounter Plan of Treatment Upcoming Encounters Date Type Department Care Team (Late st Contact Info) Description 06/29/2024 14:15 EDT Office Visit [facility] [address] [place] [address] Jean Munoz MD [address] [place] [phone] documented as of this encounter Visit [...] colon documented in this encounter Care Teams Teleprinter Installer Relationship Specialty Start Date End Date Jean Munoz MD [address] [place] [phone] PCP - General 12/31/08 Manny Rizzo MD [address] [place] [phone] 04/20/10 Afia Valle MD [address] [facility] [address] [place] [phone] MD Care Team Radiation Oncology 07/02/21 Jesi Leong, [facility] [address] [place] [phone] Behavioral Health Belt Conveyor DrierPanman Care 10/19/22 01/23/24 documented as of this encounter
--- OUTSIDE RECORDS SUMMARY | 2024-06-10 07:05 | XMS_ITS | Encounter Summary ---
Author Organization [facility] Address [address] [place] [address] Care Team Providers Care Supervisor Nuclear Medicine Name Role Phone Jean Munoz MD Primary Care Provider Manny Rizzo MD Unavailable Afia Valle MD Unavailable Jesi Leong CURATOR HERBARIUM Unavailable Encounter Details Date Type Department Care Team (Late st Contact Info) Description 07/20/2023 Patient Outreach [facility] [address] [place] [address] Jesi Leong CURATOR HERBARIUM [address] [place] [address] Social History Tobacco Use Types [...] or slept in a prison (including now)? Yes 07/15/2023 Interpersonal Safety Answer [...] Progress Notes * Jesi Leong LICSW - 07/20/2023 1340 EST Images from the original note were not included. Primary Care Mental Health Integration Behavioral Health Lumite Injector Encounter 07/20/2023 Time Spent: 3 minutes in Direct and Indirect Collaborative Care Encounter Type: Telephone Encounter Contact: patient Collaborative Care Activities: Outreach/engagement Summary of Care Provided: This telegraphic typewriter installer was scheduled to meet with Liset on this date. She did not arrive to the 1:30pm Zoom video visit. Via phone Liset shares she and partner had to move, they are in the midst of the relocating to [place] [facility]. Asks to reschedule. Also notes she cannot get Zoom to work on her new device. Validated Behavioral Health Measures 03/22/2023 11:56 04/05/2023 10:07 04/05/2023 10:09 05/11/2023 13:57 06/08/2023 12:35 06/08/2023 12:36 07/15/2023 11:15 Risk Totals: MFQ, PHQ-9A, PHQ-2/PHQ-9, and HEYDI-7 PHQ-2 2 2 5 2 2 PHQ-9 10 9 14 8 PHQ-9 Interpretation Moderate Depression Mild Depression Moderate Depression Mild Depression HEYDI-2 2 5 3 HEYDI-7 11 18 8 HEYDI-7 Interpretation Moderate Anxiety Severe Anxiety Mild Anxiety Plan: Agree to reschedule to [facility] Aug 03, 2023 at 1:30pm via PHONE documented in this encounter Plan of Treatment Upcoming Encounters Date Type Department Care Team (Late st Contact Info) Description 06/29/2024 14:15 EDT Office Visit [facility] [address] [place] [address] Jean Munoz MD [address] [place] [phone] documented as of this encounter Visit Diagnoses Not on filedocumented in this encounter Care Teams Supervisor Nuclear Medicine Relationship Specialty Start Date End Date Jean Munoz MD [address] [place] [phone] PCP - General 12/31/08 Manny Rizzo MD [address] [place] [phone] 04/20/10 Afia Valle MD [address] [place] [address], [facility] [address] [place] [phone] Care Team Radiation Oncology 07/02/21 Jesi Leong, [facility] [address] [place] [phone] Behavioral Health Lumite InjectorEndoscopy Specialty Technician Care 10/19/22 01/23/24 documented as of this encounter
--- OUTSIDE RECORDS SUMMARY | 2024-06-10 07:05 | XMS_ITS | Encounter Summary ---
Author Organization [facility] Address [address] [place] [address] Care Team Providers Care Tower Supervisor Name Role Phone Jean Munoz MD Primary Care Provider Manny Rizzo MD Unavailable Afia Valel MD Unavailable Jesi Leong Unavailable Reason for Visit * Reason Onset Date Comments Letter 07/08/2023 Encounter Details Date Type Department Care Team (Late st Contact Info) Description 07/08/2023 Telephone [facility]note 2] [address] [place] [address] Jean Munoz MD [address] [place] [address] Letter Social History Tobacco Use Types Packs/Day Years [...] or slept in a [facility] (including now)? No 07/30/2022 Interpersonal Safety Answer [...] Telephone Encounter - Jean Munoz MD - 07/08/2023 1851 EDT Letter done, thanks. * Telephone Encounter - Antionette Nichols - 07/08/2023 1351 EDT Reason for Call: Paperwork request Summary/Symptoms: Pt asking for an update on the letter. Please send to pt via [facility] once it's completed. Onset and Duration? Appointment Offered? No Antionette Nichols 07/08/2023 13:52 * Telephone Encounter - RUSSELL Fitzpatrick - 07/08/2023 1024 EDT Reason for Call: Paperwork request Summary: Requests a letter be completed indicating that Efren Bateman has been assisting her in [employer] activities. Patient states she is currently living in a hotel. Okay to attach letter to message on [employer]. Patient stated she needed to place call on hold but hung up instead. RUSSELL Fitzpatrick 07/08/2023 10:24 documented in this encounter Plan of Treatment Upcoming Encounters Date Type Department Care Team (Late st Contact Info) Description 06/29/2024 14:15 EDT Office Visit [facility]note 2[facility] [address] [place] [address] Jean Munoz MD [address] [place] [address] documented as of this encounter Visit Diagnoses Not on filedocumented in this encounter Care Teams Tower Supervisor Relationship Specialty Start Date End Date Jean Munoz MD [address] [place] [address] PCP - General 12/31/08 Manny Rizzo MD [address] [place] [phone] 04/20/10 Afia Valle MD [address] [facility], [facility] [address] [place] [phone] MD Care Team Radiation Oncology 07/02/21 Jesi Leong, [facility] [address] [place] [address] Behavioral Health Superintendent LocalSpot Man Care 10/19/22 01/23/24 documented as of this encounter
--- OUTSIDE RECORDS SUMMARY | 2024-06-10 07:05 | XMS_ITS | Encounter Summary ---
Author Organization [facility] Address [address] [place] [address] Care Team Providers Care Check Writing Machine Operator Name Role Phone Jean Munoz MD Primary Care Provider Manny Rizzo MD Unavailable Afia Valle MD Unavailable Jesi Leong Unavailable [phone] Reason for Referral * Medication Prior Authorization (Urgent) - Closed Specialty Diagnoses / Procedures Referred By [facility] t Referred To Contact Diagnoses Centrilobular emphysema ([facility]) Duy Bynum MD [facility] Ep5 Pulmonology [address] [place] [address] Referral ID Status Reason Start Date Expiration Date Visits Requested Visits Authorized [id number] Closed Medication Prior Authorization 3 1 1 Question Answer Medication to be Prior Authorized: [id number] (TRELEGY ELLIPTA) 200-62.5-25 mcg blister with device 1 puff daily Comments The purpose of this request is to inform precertification staff that the requested service needs to be reviewed for prior-authorization. Encounter Details Date Type Department Care Team (Late st Contact Info) Description 08/09/2023 Orders Only [facility] [address] [place] [address] Duy Bynum MD Centrilobular emphysema ([facility]) (Primary Dx) Social History Tobacco Use Types [...] Info) Description 06/29/2024 14:15 EDT Office Visit [facility] [address] [place] [address] Jean Munoz MD [address] [place] [phone] Scheduled Referrals Name Type Priority Associated Diagnoses Order Schedule AMB MEDICATION PRIOR AUTHORIZATION REQUEST Outpatient Referral Urgent Centrilobular emphysema (HCC-CMS) Expected: 08/11/2023 (Approximate), Expires: 08/09/2024 documented as of this encounter Visit Diagnoses Diagnosis Centrilobular emphysema (HCC-CMS)- Primary Other emphysema Screening for osteoporosis- Primary Special screening for osteoporosis Primary narcolepsy without cataplexy Chronic pain syndrome Chronic low back pain Lumbago Chronic use of opiate for therapeutic purpose Pain medication agreement Encounter for long-term (current) use of other medications Screen for colon cancer Special screening for malignant neoplasms, colon documented in this encounter Care Teams Check Writing Machine Operator Relationship Specialty Start Date End Date Jean Munoz MD [address] [place] [phone] PCP - General 12/31/08 Manny Rizzo MD [address] [place] [address] 04/20/10 Afia Valle MD [address] [place] [place] [phone] MD Care Team Radiation Oncology 07/02/21 Jesi Leong, [facility] [address] [place] [phone] Behavioral Health CnaMedication Nurse Care 10/19/22 01/23/24 documented as of this encounter
--- OUTSIDE RECORDS SUMMARY | 2024-06-10 07:05 | XMS_ITS | Encounter Summary ---
Author Organization [facility] Address [address] [place] [address] Care Team Providers Care Medical Reimbursement Specialist Name Role Phone Jean Munoz MD Primary Care Provider Manny Rizzo MD Unavailable Afia Valle MD Unavailable [phone] Jesi Leong Unavailable [phone] Reason for Visit * Reason Comments Follow-up Medication Management Encounter Details Date Type Department Care Team (Late st Contact Info) Description 03/24/2023 16:15 EDT Telemedicine [facility] [address] [place] [address] Jean Munoz MD [address] [place] [phone] Chronic low back pain (Primary Dx); Chronic pain syndrome; Chronic use of opiate for therapeutic purpose; Pain medication agreement; Anxiety; Primary narcolepsy without cataplexy; Chronic obstructive pulmonary disease, unspecified COPD type ([facility]) Social History Tobacco Use Types Packs/Day Years [...] or slept in a mcc (including now)? No 07/30/2022 Interpersonal Safety Answer Date Record ed How often does anyone, [employer] family, hit, punch or physically hurt you? Rarely 04/24/2021 How often does anyone, [employer] family, [...] pain. Daily Max: 4 Tablets 112 Tablet 03/27/2023 03/26/2023 HYDROcodone-acetaminoph en (NORCO) 7.5-325 mg per tabletIndications:Chron ic pain syndrome,Chronic low back pain,Chronic use of opiate for therapeutic purpose,Pain medication agreement Take 1 Tablet by mouth every 6 hours for 28 days. For chronic pain. Daily Max: 4 Tablets 112 Tablet 04/24/2023 04/26/2023 HYDROcodone-acetaminoph en (NORCO) 7.5-325 mg per tabletIndications:Chron ic pain syndrome,Chronic low back pain,Chronic use of opiate for therapeutic purpose,Pain medication agreement Take 1 Tablet by mouth every 6 hours for 28 days. For chronic pain. Daily Max: 4 Tablets 112 Tablet 05/22/2023 06/15/2023 roflumilast (DALIRESP) 500 mcg tabletIndications:Chron ic obstructive pulmonary disease, unspecified COPD type ([facility]) Take 1 Tablet by mouth daily. 90 Tablet 3 03/25/2023 08/04/2023 pregabalin (LYRICA) 300 mg capsuleIndications:[employer]ensed [employer] majo pain syndrome,Chronic low back pain,Chronic use of opiate for therapeutic purpose,Pain medication agreement TAKE ONE CAPSULE BY MOUTH TWICE DAILY *daily max 2 capsules 180 Capsule 1 03/25/2023 10/06/2023 methylphenidate HCl (RITALIN;METHYLIN) 20 mg tabletIndications:Prima ry narcolepsy without cataplexy Take 2 Tablets by mouth daily for 28 days. For narcolepsy. Daily Max: 40 mg 56 Tablet 03/27/2023 03/27/2023 methylphenidate HCl (RITALIN;METHYLIN) 20 mg tabletIndications:Prima ry narcolepsy without cataplexy Take 2 Tablets by mouth daily for 28 days. For narcolepsy. Daily Max: 40 mg 56 Tablet 04/24/2023 07/02/2023 methylphenidate HCl (RITALIN;METHYLIN) 10 mg tabletIndications:Prima ry narcolepsy without cataplexy Take 1 Tablet by mouth daily for 28 days. For narcolepsy. Daily Max: 10 mg 28 Tablet 05/22/2023 06/15/2023 DULoxetine (CYMBALTA) 60 mg capsuleIndications:Anxi ety Take 2 Capsules by mouth daily. For depression, anxiety 180 Each 3 03/25/2023 10/06/2023 busPIRone (BUSPAR) 15 mg tabletIndications:Anxie ty Take 1 Tablet by mouth 3 times daily. 270 Tablet 3 03/25/2023 10/06/2023 documented in this encounter Progress Notes * Kaitlyn Montero LPN - 03/24/2023 1615 EDT The [place] [employer] Monitoring System query has been completed. Hydrocodone-Acetaminophen 7.5-325 mg: Filled: 02/27/23 Quantity: 5 tabs for 1 days Hydrocodone-Acetaminophen 7.5-325 mg: Filled: 02/27/23 Quantity: 107 tabs for 27 days Methylphenidate 10 mg: Filled: 02/27/23 Quantity: 28 tabs for 28 days Methylphenidate 20 mg: Filled: 02/27/23 Quantity: 56 tabs for 28 days Zolpidem 5 mg: Filled: 01/30/23 Quantity: 28 tabs for 28 days KAITLYN MONTERO LPN * Jean Munoz MD - 03/24/2023 1615 EDT Primary Care Video Visit Assessment & Plan Diagnoses and all orders for this visit: Chronic low back pain Chronic pain syndrome Chronic use of opiate for therapeutic purpose Pain medication agreement - pregabalin (LYRICA) 300 mg capsule - HYDROcodone-acetaminophen (NORCO) 7.5-325 mg per tablet - HYDROcodone-acetaminophen (NORCO) 7.5-325 mg per tablet - HYDROcodone-acetaminophen (NORCO) 7.5-325 mg per tablet Seems stable. Will renew hydrocodone and Valium. Recheck 3 months. Anxiety - busPIRone (BUSPAR) 15 mg tablet - DULoxetine (CYMBALTA) 60 mg capsule Seems to be doing well despite difficult circumstances. Continue medication. Primary narcolepsy without cataplexy - methylphenidate HCl (RITALIN;METHYLIN) 10 mg tablet - methylphenidate HCl (RITALIN;METHYLIN) 20 mg tablet - methylphenidate HCl (RITALIN;METHYLIN) 20 mg tablet Chronic obstructive pulmonary disease, unspecified COPD type ([facility]) - roflumilast (DALIRESP) 500 mcg tablet Time of phone call: 10 minutes Return in about 12 weeks (around 06/16/2023) for PE in person. Patient education was direct. Barriers were assessed and addressed as needed. Subjective Liset is a 62 y.o. female presenting with Follow-up and Medication Management HPI Sunita is a 62-year-old female with COPD/emphysema, lung cancer, BMI greater than 30, hyperglycemia,IBS, GERD, chronic pain, depression/anxiety, fibromyalgia, KATJA, narcolepsy, insomnia. [facility] was [facility] so this was done by telephone instead. Overall doing pretty good. No concerns. Got a new kitten this last week. Had to move to a different hotel. Data reviewed this visit: problem list/past medical history, current medications, allergies, socialhistory, last visit note, health maintenance items and recent labs ROS - See HPI The concept of ???Telemedicine?? has been described [...] involved in patient???s medical or mental health care Objective LMP 01/11/1987 Physical Exam alert on telephone documented in this encounter Plan of Treatment Upcoming Encounters Date Type Department Care Team (Late st Contact Info) Description 06/29/2024 14:15 EDT Office Visit [facility] [address], [place] [id number] Jean Munoz MD [address] [place] [phone] documented as of this encounter Visit Diagnoses Diagnosis Chronic low back pain- Primary Lumbago Chronic pain syndrome Chronic use of opiate for therapeutic purpose Pain medication agreement Encounter for long-term (current) use of other medications Anxiety Anxiety state, unspecified Primary narcolepsy without cataplexy Chronic obstructive pulmonary disease, unspecified COPD type ([facility]) Screening for osteoporosis- Primary Special screening for osteoporosis Primary narcolepsy without cataplexy Chronic pain syndrome Chronic low back pain Lumbago Chronic use of opiate for therapeutic purpose Pain medication agreement Encounter for long-term (current) use of other medications Screen for colon cancer Special screening for malignant neoplasms, colon documented in this encounter Discontinued Medications Medication Sig Discontinue Reason Start Date End Da te roflumilast (DALIRESP) 500 mcg tabletIndications:Chroni c obstructive pulmonary disease, unspecified COPD type ([facility]) Take 1 Tablet by mouth daily. Reorder 11/26/2021 02/22/2023 busPIRone (BUSPAR) 15 mg tabletIndications:Anxiet y Take 1 Tablet by mouth 3 times daily. Reorder 02/07/2022 02/22/2023 DULoxetine (CYMBALTA) 60 mg capsuleIndications:Anxie ty Take 2 Capsules by mouth daily. For depression, anxiety Reorder 02/07/2022 02/22/2023 pregabalin (LYRICA) 300 mg capsuleIndications:Chron ic low back pain TAKE ONE CAPSULE BY MOUTH TWICE DAILY *daily max 2 capsules Reorder 08/13/2022 02/22/2023 methylphenidate HCl (RITALIN;METHYLIN) 20 mg tabletIndications:Primar y narcolepsy without cataplexy Take 2 Tablets by mouth daily for 28 days. For narcolepsy. Daily Max: 40 mg Reorder 01/30/2023 02/22/2023 HYDROcodone-acetaminophe n (NORCO) 7.5-325 mg per tablet Take 1 Tablet by mouth every 6 hours for 28 days. For chronic pain. Daily Max: 4 Tablets Reorder 01/04/2023 02/22/2023 HYDROcodone-acetaminophe n (NORCO) 7.5-325 mg per tabletIndications:Chroni c 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 For chronic pain. Daily Max: 4 Tablets Reorder 01/30/2023 02/22/2023 HYDROcodone-acetaminophe n (NORCO) 7.5-325 mg per tabletIndications:Chroni c 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 For chronic pain. Daily Max: 4 Tablets Reorder 02/27/2023 02/22/2023 methylphenidate HCl (RITALIN;METHYLIN) 10 mg tabletIndications:Primar y narcolepsy without cataplexy Take 1 Tablet by mouth daily for 28 days. For narcolepsy. Daily Max: 10 mg Reorder 02/27/2023 02/22/2023 methylphenidate HCl (RITALIN;METHYLIN) 20 mg tabletIndications:Primar y narcolepsy without cataplexy Take 2 Tablets by mouth daily for 28 days. For narcolepsy. Daily Max: 40 mg Reorder 02/27/2023 02/22/2023 documented as of this encounter Care Teams Medical Reimbursement Specialist Relationship Specialty Start Date End Date Jean Munoz MD [address] [place] [phone] PCP - General 12/31/08 Manny Rizzo MD [address] [place] [phone] 04/20/10 Afia Valle MD [address] [facility], [facility], [address] [place] [phone] MD Care Team Radiation Oncology 07/02/21 Jesi Leogn, [facility] [address] [place] [phone] Behavioral Health Guide [employer] [facility] 10/19/22 01/23/24 documented as of this encounter
--- OUTSIDE RECORDS SUMMARY | 2024-06-10 07:05 | XMS_ITS | Encounter Summary ---
Author Organization [facility] Address [address] [place] [address] Care Team Providers Care Base Brander Name Role Phone Jean Munoz MD Primary Care Provider Manny Rizzo MD Unavailable Afia Valle MD Unavailable Jesi Leong Unavailable [phone] Reason for Referral * Radiology Services (Routine/Next Available) - Authorization Not Required Specialty Diagnoses / Procedures Referred By Contcecille t Referred To Contact Diagnoses Pharyngeal dysphagia Procedures FL BARIUM SWALLOW Jean Munoz MD [address] [place] [address] [facility] Referral ID Status Reason Start Date Expiration Date Visits Requested Visits Authorized [id number] Authorization Not Required 07/15/2023 1 1 Reason for Visit * Reason Comments Annual Exam Encounter Details Date Type Department Care Team (Lakesha st Contact Info) Description 07/15/2023 11:30 EDT Office Visit [facility] [address] [place] [address] Jean Munoz MD [address] [place] [phone] Routine physical examination (Primary Dx); Chronic low back pain; Chronic pain syndrome; Chronic use of opiate for therapeutic purpose; Pain medication agreement; Primary narcolepsy without cataplexy; Panlobular emphysema (HCC-CMS); Primary cancer of right upper lobe of lung (HCC-CMS); Obesity (BMI 30-39.9); Splenic mass; Impaired glucose tolerance; Gastroesophageal reflux disease, unspecified whether esophagitis present; Fatty liver; KATJA (obstructive sleep apnea); Insomnia, unspecified type; Allergic rhinitis, unspecified seasonality, unspecified trigger; Screen for colon cancer; Encounter for screening mammogram for malignant neoplasm of breast; Need for vaccination; Need for influenza vaccination; Need for COVID-19 vaccine; Need for RSV vaccination; Need for hepatitis B vaccination; Screening for hyperlipidemia; Elevated glucose; Hypocalcemia; Pharyngeal dysphagia Social History Tobacco Use Types Packs/Day Years [...] Sign Reading Time Taken Comments Blood Pressure 114/76 07/15/2023 1135 EDT Pulse 92 07/15/2023 1135 EDT Temperature - - Respiratory Rate 12 07/15/2023 1135 EDT Oxygen Saturation - - Inhaled Oxygen Concentration - - Weight 67.4 kg (148 lb 9.6 oz) 07/15/2023 1135 E DT Height - - Body Mass Index 25.59 01/27/2023 1246 EDT documented in this encounter Functional Status Functional [...] Dispensed Refills Start Date End Da te gqfgviomdap-tngvrlefb-e ilanter (MANNYGY ELLIPTA) 200-62.5-25 mcg blister with device Inhale 1 Puff as directed daily. 60 Each 5 07/15/2023 08/23/2023 methylphenidate HCl (RITALIN;METHYLIN) 20 mg tabletIndications:Prima ry narcolepsy without cataplexy Take 1 Tablet by mouth 2 times daily for 28 days. Daily Max: 40 mg 56 Tablet 07/15/2023 09/29/2023 methylphenidate HCl (RITALIN;METHYLIN) 20 mg tabletIndications:Prima ry narcolepsy without cataplexy Take 2 Tablets by mouth daily for 28 days. For narcolepsy. Daily Max: 40 mg 56 Tablet 08/12/2023 09/29/2023 methylphenidate HCl (RITALIN;METHYLIN) 20 mg tabletIndications:Prima ry narcolepsy without cataplexy Take 2 Tablets by mouth daily for 28 days. For narcolepsy. Daily Max: 40 mg 56 Tablet 09/09/2023 09/29/2023 methylphenidate HCl (RITALIN;METHYLIN) 10 mg tabletIndications:Prima ry narcolepsy without cataplexy Take 1 Tablet by mouth daily for 28 days. For nacolepsy Daily Max: 10 mg 28 Tablet 07/15/2023 09/29/2023 methylphenidate HCl (RITALIN;METHYLIN) 10 mg tabletIndications:Prima ry narcolepsy without cataplexy Take 1 Tablet by mouth daily for 28 days. For narcolepsy. Daily Max: 10 mg 28 Tablet 08/12/2023 09/29/2023 methylphenidate HCl (RITALIN;METHYLIN) 10 mg tabletIndications:Prima ry narcolepsy without cataplexy Take 1 Tablet by mouth daily for 28 days. For narcolepsy. Daily Max: 10 mg 28 Tablet 09/09/2023 09/29/2023 fexofenadine (JUDITH) 180 mg tabletIndications:Aller gic rhinitis, unspecified seasonality, unspecified trigger TAKE 1 TABLET BY MOUTH EVERY DAY for allergies 90 Tablet 4 07/15/2023 10/06/2023 HYDROcodone-acetaminoph en (NORCO) 7.5-325 mg per tabletIndications:Chron ic pain syndrome,Chronic low back pain,Chronic use of opiate for therapeutic purpose,Pain medication agreement Take 1 Tablet by mouth every 6 hours for 28 days. For chronic pain. Daily Max: 4 Tablets 112 Tablet 07/15/2023 09/29/2023 HYDROcodone-acetaminoph en (NORCO) 7.5-325 mg per tabletIndications:Chron ic pain syndrome,Chronic low back pain,Chronic use of opiate for therapeutic purpose,Pain medication agreement Take 1 Tablet by mouth every 6 hours for 28 days. For chronic pain. Daily Max: 4 Tablets 112 Tablet 08/12/2023 09/29/2023 HYDROcodone-acetaminoph en (NORCO) 7.5-325 mg per tabletIndications:Chron ic pain syndrome,Chronic low back pain,Chronic use of opiate for therapeutic purpose,Pain medication agreement Take 1 Tablet by mouth every 6 hours for 28 days. For chronic pain. Daily Max: 4 Tablets 112 Tablet 09/09/2023 09/29/2023 documented in this encounter Progress Notes * Jean Munoz MD - 07/15/2023 1130 EDT Primary Care Adult Preventative Visit Assessment & Plan Diagnoses and all orders for this visit: Routine physical examination Chronic low back pain Chronic pain syndrome Chronic use of opiate for therapeutic purpose Pain medication agreement - HYDROcodone-acetaminophen (NORCO) 7.5-325 mg per tablet - HYDROcodone-acetaminophen (NORCO) 7.5-325 mg per tablet - HYDROcodone-acetaminophen (NORCO) 7.5-325 mg per tablet - POLYSUBSTANCE USE PANEL, URINE Consent, agreement, functional assessment, COMM done today. Seems stable, continue hydrocodone, getUDS, recheck within 12 weeks. Primary narcolepsy without cataplexy - methylphenidate HCl (RITALIN;METHYLIN) 10 mg tablet - methylphenidate HCl (RITALIN;METHYLIN) 10 mg tablet - methylphenidate HCl (RITALIN;METHYLIN) 10 mg tablet - methylphenidate HCl (RITALIN;METHYLIN) 20 mg tablet - methylphenidate HCl (RITALIN;METHYLIN) 20 mg tablet - methylphenidate HCl (RITALIN;METHYLIN) 20 mg tablet Medications renewed, recheck 12 weeks. Panlobular emphysema (HCC-CMS) Stable symptoms, continue Trelegy. Also DuoNeb as needed, Xopenex MDI as needed. Primary cancer of right upper lobe of lung (HCC-CMS) Follow-up per Dr. Valle. Obesity (BMI 30-39.9) Counseled. Splenic mass Likely hemangioma previous imaging. Impaired glucose tolerance - HEMOGLOBIN A1C Gastroesophageal reflux disease, unspecified whether esophagitis present Stable. Fatty liver CMP. KATJA (obstructive sleep apnea) Not on CPAP. Insomnia, unspecified type On zolpidem at at bedtime. Will need new prescription in August. Will align with hydrocodone and methylphenidate if feasible. Allergic rhinitis, unspecified seasonality, unspecified trigger - fexofenadine (JUDITH) 180 mg tablet Screen for colon cancer - FECAL IMMUNOCHEMISTRY TEST (FIT) Encounter for screening mammogram for malignant neoplasm of breast Encouraged to call to schedule mammogram. Need for influenza vaccination - INFLUENZA VACCINE QUAD PF 0.5 ML IM (6 MOS+) Need for COVID-19 vaccine - COVID-19 MRNA-LNP 2022- VACCINE (MODERNA COVID-19) PF 0.5 ML (12 YRS+) Need for RSV vaccination Encouraged to go to pharmacy. Need for hepatitis B vaccination Recommended. Screening for hyperlipidemia - LIPID PROFILE (INCLUDES CHOLESTEROL, TRIGLYCERIDES, HDL, LDL) Elevated glucose - HEMOGLOBIN A1C Hypocalcemia - COMPREHENSIVE METABOLIC PANEL (CMP) Pharyngeal dysphagia - FL BARIUM SWALLOW Other orders - knuvgqptcvu-pwlhauppv-dnzymklc (TRELEGY ELLIPTA) 200-62.5-25 mcg blister with device Letter provided in support of caregiver as requested. Recommend reduce or stop marijuana. No follow-ups on file. Patient education was direct. Barriers were assessed and addressed as needed. Kalie Hutchins is a 62 y.o. female presenting with Annual Exam . HPI Pt is here for a preventative visit. Please see Health Care Questionnaire for details and ROS. Chart is fully updated and reviewed. Health Maintenance is reviewed and updated as needed. Homeless again. Will call to get housing. Has bruise left forehead. Speech slurred at times. Nees letter for housing due to caregiver. Unsteady , sometimes trips and falls. Has a lump LUQ. [facility] November Has improved (was worse with cough) Trouble swallowing Intermittent Onset 1 year Solids Liquids OK May have had barium swallow in past Headaches Chronic Not every day Usually frontal Not different Has had stress Stopped smoking cigarettes Marijuana daily Sleep problem, not worse COPD stable dyspnea on Trelegy, DuoNeb as needed, Xopenex as needed, montelukast for allergies, Daliresp Lung cancer follow up CT pending, has follow up after. BMI>30 IGT Splenic mass with hemangioma on CT GERD on omeprazole, no symptoms now. Fatty liver IBS Chronic back pain/chronic pain on long-term opiate with hydrocodone/APAP, Robaxin, pregabalin Depression/anxiety on BuSpar, Cymbalta, mood variable. RLS on ropinirole. KATJA not on CPAP (not needed per Neurology). Insomnia on zolpidem. Narcolepsy on methylphenidate. Rosacea on doxycycline Skin cancer screen: We reviewed the characteristics of concerning skin lesions. Patient does not report any concerning lesions. Vision: no new concerns Hearing: patient does not have concerns. Dental: No dentist. EtOH use: reports no history of alcohol use.. Counseled. Tobacco use: reports that she quit smoking about 10 years ago. Her smoking use included cigarettes.She started smoking about 47 years ago. She has a 55.5 pack- year smoking history. She has never used smokeless tobacco.. Counseled. Substance abuse: reports no history of drug use.. Counseled. Behavioral Health Screen Summary Interpretation PHQ-2: 2 PHQ-9: HEYDI-2: HEYDI-7: SASQ: Never AUDIT-10: SSASQ: Never DAST-10: . BHS Intervention: Negative screen - no intervention indicated and Brief Office Intervention/counseling Data reviewed this visit: problem list/past medical history, current medications, allergies, surgical history, family history, social history, last visit note, health maintenance items, recent labs, recent imaging, recent specialist documentation, social determinants of health and behavioral health screen ROS - See HPI Objective BP 114/76 (BP Cuff Location: Left arm, BP Patient Position: Sitting, BP Cuff Sizes: Adult, regular) Pulse 92 Resp 12 Wt 67.4 kg (148 lb 9.6 oz) LMP 01/11/1987 BMI 25.59 kg/m?? Physical Exam Vitals and nursing note reviewed. Constitutional: General: She is not in acute distress. Appearance: She is not diaphoretic. Comments: Appears somewhat weaker and more frail since I last saw her. Smells of tobacco smoke and coughing intermittently during visit. HENT: Head: Normocephalic and atraumatic. Right Ear: Tympanic membrane and external ear normal. Left Ear: Tympanic membrane and external ear normal. Nose: Nose normal. No nasal discharge. Mouth/Throat: Mouth: Mucous membranes are moist. Dentition: Normal. Pharynx: Oropharynx is clear. Tonsils: No tonsillar exudate. Eyes: General: No scleral icterus. Right eye: No discharge. Left eye: No discharge. Extraocular Movements: EOM normal. Conjunctiva/sclera: Conjunctivae normal. Pupils: Pupils are equal, round, and reactive to light. Comments: Glasses Neck: Thyroid: No thyromegaly. Cardiovascular: Rate and Rhythm: Normal rate and regular rhythm. Pulses: Intact distal pulses. Heart sounds: Normal heart sounds. No murmur heard. Pulmonary: Effort: Pulmonary effort is normal. No respiratory distress or retractions. Breath sounds: Normal breath sounds. No wheezing. Comments: Intermittent cough Abdominal: General: Bowel sounds are normal. There is no distension. Palpations: Abdomen is soft. There is no hepatosplenomegaly or mass. Tenderness: There is no abdominal tenderness. There is no guarding or rebound. Genitourinary: Comments: Deferred. Musculoskeletal: General: No edema. Normal range of motion. Cervical back: Normal range of motion and neck supple. Lymphadenopathy: Cervical: No cervical adenopathy. Skin: General: Skin is warm and dry. Findings: No rash. Neurological: Mental Status: She is alert and oriented to person, place, and time. Cranial Nerves: No cranial nerve deficit. Deep Tendon Reflexes: Reflexes are normal and symmetric. Psychiatric: Behavior: Behavior normal. * Satinder Montero LPN - 07/15/2023 1130 EDT [facility] [place] [employer] query has been completed. Zolpidem 5 mg: Filled: 06/29/23 Quantity: 28 tabs for 28 days Pregabalin 300 mg: Filled: 06/29/23 Quantity: 180 tabs for 90 days Methylphenidate 10 mg: Filled: 06/19/23 Quantity: 28 tabs for 28 days Methylphenidate 20 mg: Filled: 06/19/23 Quantity: 56 tabs for 28 days Hydrocodone-Acetaminophen 7.5-325 mg: Filled: 06/16/23 Quantity: 112 tabs for 28 days SATINDER MONTERO LPN * Teetee Marshall LPN - 07/15/2023 1130 EDT Influenza and COvid Vaccine vaccine(s) administered as ordered per Dr. Munoz. See immunization record for details. Patient advised to wait 10 minutes after administration for observation of possible adverse reaction. FIT kit sent home with patient. documented in this encounter Plan of Treatment Upcoming Encounters Date Type Department Care Team (Late st Contact Info) Description 06/29/2024 14:15 EDT Office Visit [facility] [address] [place] [address] Jean Munoz MD [address] [place] [phone] Scheduled Orders Name Type Priority Associated Diagnoses Orde r Schedule POLYSUBSTANCE USE PANEL, URINE Lab Routine Chronic pain syndrome Expected: 07/16/2023 (Approximate), Expires: 07/02/2024 LIPID PROFILE (INCLUDES CHOLESTEROL, TRIGLYCERIDES, HDL, LDL) Lab Routine Screening for hyperlipidemia Expected: 07/16/2023 (Approximate), Expires: 07/15/2024 FL BARIUM SWALLOW Imaging Routine Pharyngeal dysphagia 1 Occurrences starting 07/15/2023 until 01/12/2025 documented as of this encounter Visit Diagnoses Diagnosis Routine physical examination- Primary Routine general medical examination at a health care facility Chronic low back pain Lumbago Chronic pain syndrome Chronic use of opiate for therapeutic purpose Pain medication agreement Encounter for long-term (current) use of other medications Primary narcolepsy without cataplexy Panlobular emphysema (HCC-CMS) Other emphysema Primary cancer of right upper lobe of lung (HCC-CMS) Obesity (BMI 30-39.9) Obesity, unspecified Splenic mass Splenomegaly Impaired glucose tolerance Impaired glucose tolerance test Gastroesophageal reflux disease, unspecified whether esophagitis present Fatty liver Other chronic nonalcoholic liver disease KATJA (obstructive sleep apnea) Obstructive sleep apnea (adult) (pediatric) Insomnia, unspecified type Allergic rhinitis, unspecified seasonality, unspecified trigger Screen for colon cancer Special screening for malignant neoplasms, colon Encounter for screening mammogram for malignant neoplasm of breast Other screening mammogram Need for vaccination Need for prophylactic vaccination and inoculation against unspecified single disease Need for influenza vaccination Need for prophylactic vaccination and inoculation against influenza Need for COVID-19 vaccine Need for RSV vaccination Need for prophylactic vaccination and inoculation against respiratory syncytial virus Need for hepatitis B vaccination Need for prophylactic vaccination and inoculation against viral hepatitis Screening for hyperlipidemia Screening for lipoid disorders Elevated glucose Other abnormal glucose Hypocalcemia Pharyngeal dysphagia Dysphagia, pharyngeal phase Screening for osteoporosis- Primary Special screening for osteoporosis Primary narcolepsy without cataplexy Chronic pain syndrome Chronic low back pain Lumbago Chronic use of opiate for therapeutic purpose Pain medication agreement Encounter for long-term (current) use of other medications Screen for colon cancer Special screening for malignant neoplasms, colon documented in this encounter Discontinued Medications Medication Sig Discontinue Reason Start Date End Da te fexofenadine (JUDITH) 180 mg tabletIndications:Aller gic rhinitis, unspecified seasonality, unspecified trigger TAKE 1 TABLET BY MOUTH EVERY DAY for allergies Reorder 07/14/2022 07/02/2023 xnhzduutiai-qivldwuie-t ilanter (TRELEGY ELLIPTA) 200-62.5-25 mcg blister with device Inhale 1 Puff as directed daily. Reorder 01/27/2023 07/15/2023 methylphenidate HCl (RITALIN;METHYLIN) 20 mg tabletIndications:Prima ry narcolepsy without cataplexy Take 2 Tablets by mouth daily for 28 days. For narcolepsy. Daily Max: 40 mg Reorder 04/24/2023 07/02/2023 HYDROcodone-acetaminoph en (NORCO) 7.5-325 mg per tabletIndications:Chron ic pain syndrome,Chronic low back pain,Chronic use of opiate for therapeutic purpose,Pain medication agreement Take 1 Tablet by mouth every 6 hours for 28 days. For chronic pain. Daily Max: 4 Tablets Reorder 03/27/2023 07/02/2023 methylphenidate HCl (RITALIN;METHYLIN) 10 mg tabletIndications:Prima ry narcolepsy without cataplexy Take 1 Tablet by mouth daily for 28 days. For nacolepsy Daily Max: 10 mg Reorder 03/27/2023 07/02/2023 methylphenidate HCl (RITALIN;METHYLIN) 10 mg tabletIndications:Prima ry narcolepsy without cataplexy Take 1 Tablet by mouth daily for 28 days. For narcolepsy. Daily Max: 10 mg Reorder 04/24/2023 07/02/2023 HYDROcodone-acetaminoph en (NORCO) 7.5-325 mg per tabletIndications:Chron ic pain syndrome,Chronic low back pain,Chronic use of opiate for therapeutic purpose,Pain medication agreement Take 1 Tablet by mouth every 6 hours for 25 days. For chronic pain. Daily Max: 4 Tablets Reorder 04/26/2023 07/02/2023 methylphenidate HCl (RITALIN;METHYLIN) 10 mg tabletIndications:Prima ry narcolepsy without cataplexy Take 1 Tablet by mouth daily for 28 days. For narcolepsy. Daily Max: 10 mg Reorder 06/19/2023 07/02/2023 methylphenidate HCl (RITALIN;METHYLIN) 20 mg tabletIndications:Prima ry narcolepsy without cataplexy Take 2 Tablets by mouth daily for 28 days. For narcolepsy. Daily Max: 40 mg Reorder 06/19/2023 07/02/2023 HYDROcodone-acetaminoph en (NORCO) 7.5-325 mg per tabletIndications:Chron ic pain syndrome,Chronic low back pain,Chronic use of opiate for therapeutic purpose,Pain medication agreement Take 1 Tablet by mouth every 6 hours for 28 days. For chronic pain. Daily Max: 4 Tablets Reorder 06/15/2023 07/02/2023 documented as of this encounter Orders Immunization/Injection Count Last Ordered Date First Ordered Date COVID-19 MRNA-LNP IN CCINE (MODERNA COVID-19) PF 0.5 ML (12 YRS+) 1 07/15/2023 INFLUENZA VACCINE QUAD PF 0. 5 ML IM (6 MOS+) 1 07/15/2023 documented in this encounter Care Teams Base Brander Relationship Specialty Start Date End Date Jean Munoz MD [address] [place] [phone] PCP - General 12/31/08 Manny Rizzo MD [address] [place] [phone] 04/20/10 Afia Valle MD [address] [facility] [address] [place] [phone] MD Care Team Radiation Oncology 07/02/21 Jesi Leong, [facility] [address] [place] [phone] Behavioral Health Toll Service ObserverTechnical Implementation Lead Care 10/19/22 01/23/24 documented as of this encounter
--- OUTSIDE RECORDS SUMMARY | 2024-06-10 07:05 | XMS_ITS | Encounter Summary ---
Author Organization [facility] Address [address] [place] [address] Care Team Providers Care Freezer Operator Name Role Phone Jean Munoz MD Primary Care Provider Manny Rizzo MD Unavailable Afia Valle MD Unavailable Jesi Leong Unavailable Reason for Visit * Reason Onset Date Comments Medications Refill 06/15/2023 Encounter Details Date Type Department Care Team (Late st Contact Info) Description 06/15/2023 Refill [facility] [address] [place] [address] Jean Munoz MD [address] [place] [phone] Medications Refill Social History Tobacco [...] Dispensed Refills Start Date End Da te ondansetron (ZOFRAN) 4 mg tabletIndications:Nausea Take 1 Tablet by mouth every 8 hours as needed for Nausea. 30 Tablet 2 06/15/2023 10/06/2023 HYDROcodone-acetaminophe n (NORCO) 7.5-325 mg per tabletIndications:Chroni c pain syndrome,Chronic low back pain,Chronic use of opiate for therapeutic purpose,Pain medication agreement Take 1 Tablet by mouth every 6 hours for 28 days. For chronic pain. Daily Max: 4 Tablets 112 Tablet 06/15/2023 07/02/2023 methylphenidate HCl (RITALIN;METHYLIN) 20 mg tabletIndications:Primar y narcolepsy without cataplexy Take 2 Tablets by mouth daily for 28 days. For narcolepsy. Daily Max: 40 mg 56 Tablet 06/19/2023 07/02/2023 methylphenidate HCl (RITALIN;METHYLIN) 10 mg tabletIndications:Primar y narcolepsy without cataplexy Take 1 Tablet by mouth daily for 28 days. For narcolepsy. Daily Max: 10 mg 28 Tablet 06/19/2023 07/02/2023 documented in this encounter Miscellaneous Notes * Telephone Encounter - Jean Munoz MD - 06/15/2023 1728 EDT Rx sent. * Telephone Encounter - Polo Chana - 06/15/2023 0956 EDT Medication(s) Requested Ondansetron 4mg Hydrocodone 7.5 Methylphenidate 10 Methylphenidate 20 [facility]acy [id number] - [facility], [place] - [address] [phone] [address] [place] [address] Next Visit Date 06/15/2023 Last Visit Date Visit date not found Out of Medication? Yes Chana Cuellar 06/15/2023 9:56 documented in this encounter Plan of Treatment Upcoming Encounters Date Type Department Care Team (Lakesha st Contact Info) Description 06/29/2024 14:15 EDT Office Visit [facility] [address] [place] [address] Jean Munoz MD [address] [place] [phone] documented as of this encounter Visit Diagnoses Diagnosis Primary narcolepsy without cataplexy Chronic pain syndrome Chronic low back pain Lumbago Chronic use of opiate for therapeutic purpose Pain medication agreement Encounter for long-term (current) use of other medications Nausea Nausea alone Screening for osteoporosis- Primary [...] Date End Da te methylphenidate HCl (RITALIN;METHYLIN) 10 mg tabletIndications:Primar y narcolepsy without cataplexy Take 1 Tablet by mouth daily for 28 days. For narcolepsy. Daily Max: 10 mg Reorder 05/22/2023 06/15/2023 HYDROcodone-acetaminophe n (NORCO) 7.5-325 mg per tabletIndications:Chroni c pain syndrome,Chronic low back pain,Chronic use of opiate for therapeutic purpose,Pain medication agreement Take 1 Tablet by mouth every 6 hours for 28 days. For chronic pain. Daily Max: 4 Tablets Reorder 05/22/2023 06/15/2023 ondansetron (ZOFRAN) 4 mg tabletIndications:Nausea Take 1 Tablet by mouth every 8 hours as needed for Nausea. Reorder 03/29/2023 06/15/2023 methylphenidate HCl (RITALIN;METHYLIN) 20 mg tabletIndications:Primar y narcolepsy without cataplexy Take 2 Tablets by mouth daily for 28 days. For narcolepsy. Daily Max: 40 mg Reorder 05/22/2023 06/15/2023 documented as of this encounter Care Teams Freezer Operator Relationship Specialty Start Date End Date Jean Munoz MD [address] [place] [phone] PCP - General 12/31/08 Manny Rizzo MD [address] [place] [phone] 04/20/10 Afia Valle MD [address] [place] [address], [facility] [address] [place] [phone] Care Team Radiation Oncology 07/02/21 Jesi Leong, [facility] [address] [place] [phone] Behavioral Health Controlled Area CheckerFunding Specialist Care 10/19/22 01/23/24 documented as of this encounter
--- OUTSIDE RECORDS SUMMARY | 2024-06-10 07:05 | XMS_ITS | Encounter Summary ---
Author Organization [facility] Address [address] [place] [address] Care Team Providers Care Band Ripsaw Operator Name Role Phone Jean Munoz MD Primary Care Provider Manny Rizzo MD Unavailable Afia Valle MD Unavailable [phone] Jesi Leong CLIENT DEVELOPMENT DIRECTOR Unavailable [phone] Encounter Details Date Type Department Care Team (Late st Contact Info) Description 03/01/2023 Patient Outreach [facility] [address] [place] [address] Jesi Leong CLIENT DEVELOPMENT DIRECTOR [address] [place] [address] Social History Tobacco Use Types [...] PHQ-2 Answer Date Recorded PHQ-2 SUBTOTAL 2 02/16/2023 Hunger Vital Sign Answer Date Recorded Within [...] slept in a senior care (including now)? No 07/30/2022 Interpersonal Safety Answer [...] Progress Notes * Jesi Leong LICSW - 03/01/2023 3763 EDT Primary Care Mental Health Integration Behavioral Health Boat Buffer Plastic Encounter 03/01/2023 Time Spent: 3 minutes in Direct and Indirect Collaborative Care Encounter Type: Telephone Encounter Contact: patient Collaborative Care Activities: Outreach/engagement Summary of Care Provided: Phone outreach to Liset as she did not arrive via Zoom for our 3pm appointment. Liset asks to cancel, vomiting, not feeling well. Plan: Next visit March 22 at 3pm. documented in this encounter Plan of Treatment Upcoming Encounters Date Type Department Care Team (Late st Contact Info) Description 06/29/2024 14:15 EDT Office Visit [facility] Medicine [facility] [address] [place] [address] Jean Munoz MD [address] [place] [address] documented as of this encounter Visit Diagnoses Not on filedocumented in this encounter Care Teams Band Ripsaw Operator Relationship Specialty Start Date End Date Jean Munoz MD [address] [place] [address] PCP - General 12/31/08 Manny Rizzo MD [address] [place] [phone] 04/20/10 Afia Valle MD [address] [facility] 2 [place] [phone] MD Care Team Radiation Oncology 07/02/21 Jesi Leong, [facility] [address] [place] [address] Behavioral Health Boat Buffer PlasticCampaign Coordinator Care 10/19/22 01/23/24 documented as of this encounter
--- OUTSIDE RECORDS SUMMARY | 2024-06-10 07:05 | XMS_ITS | Encounter Summary ---
Author Organization [facility] Address [address] [place] [address] Care Team Providers Care Salesperson Wigs Name Role Phone Jean Munoz MD Primary Care Provider Manny Rizzo MD Unavailable Afia Valle MD Unavailable Jesi Leong Unavailable Reason for Visit * Reason Comments Medications Refill Encounter Details Date Type Department Care Team (Late st Contact Info) Description 05/31/2023 Refill [facility] [address] [place] [address] Jean Munoz MD [address] [place] [address] Medications Refill Social History Tobacco [...] 07/30/2022 PHQ-2 Answer Date Recorded PHQ-2 SUBTOTAL 5 05/11/2023 Hunger Vital Sign Answer Date Recorded Within [...] place to sleep or slept in a halfway (including now)? No 07/30/2022 Interpersonal Safety Answer [...] End Da te SUMAtriptan (IMITREX) 100 mg tabletIndications:Migrain e without status migrainosus, not intractable, unspecified migraine type TAKE 1 TABLET BY MOUTH AT ONSET OF MIGRAINE. 9 Tablet 1 05/31/2023 07/22/2023 documented in this encounter Miscellaneous Notes * Telephone Encounter - Zee Dunn RN - 05/31/2023 1148 EDT Requested Prescriptions Pending Prescriptions Disp Refills ??? SUMAtriptan (IMITREX) 100 mg tablet [Pharmacy Med Name: SUMATRIPTAN SUCCINATE 100MG TABS] 9 Tablet 1 Sig: TAKE 1 TABLET BY MOUTH AT ONSET OF MIGRAINE. Pharmacy: [facility] Last Refill Date: 12/09/2022 Last Visit Date: 03/24/2023 Next Non-Acute Visit Date Scheduled with Care Team: 06/15/2023 ZEE DUNN RN 05/31/2023 11:48 documented in this encounter Plan of Treatment Upcoming Encounters Date Type Department Care Team (Late st Contact Info) Description 06/29/2024 14:15 EDT Office Visit [facility] Family Medicine [facility] [address] [place], [place] [phone] Jean Munoz MD [address] [place] [phone] documented as of this encounter Visit Diagnoses Diagnosis Migraine without status migrainosus, not intractable, unspecified migraine type Screening for osteoporosis- Primary Special screening [...] End Da te SUMAtriptan (IMITREX) 100 mg tabletIndications:Migrain e without status migrainosus, not intractable, unspecified migraine type TAKE 1 TABLET BY MOUTH ONCE NEEDED FOR UP TO 1 DOSE FOR MIGRAINE. 12/09/2022 05/31/2023 documented as of this encounter Care Teams Salesperson Wigs Relationship Specialty Start Date End Date Jean Munoz MD [address] [place] [address] PCP - General 12/31/08 Manny Rizzo MD [address] [place] [phone] 04/20/10 Afia Valle MD [address] [facility] 2 [place] [phone] MD Care Team Radiation Oncology 07/02/21 Jesi Leong, [facility] [address] [place] [address] Behavioral Health Sticker OperatorOsha Inspector Care 10/19/22 01/23/24 documented as of this encounter
--- OUTSIDE RECORDS SUMMARY | 2024-06-10 07:05 | XMS_ITS | Encounter Summary ---
Author Organization [facility] Address [address] [place] [address] Care Team Providers Care Telephone Surveyor Name Role Phone Jean Munoz MD Primary Care Provider Manny Rizzo MD Unavailable Afia Valle MD Unavailable [phone] Jesi Leong Unavailable [phone] Reason for Visit * Reason Comments Medications Refill Encounter Details Date Type Department Care Team (Late st Contact Info) Description 04/24/2023 Refill [facility] Medicine [facility] [address] [place] [address] Jean Munoz MD [address] [place] [address] Medications Refill Social History Tobacco [...] or slept in a half-way (including now)? No 07/30/2022 Interpersonal Safety Answer [...] encounter Miscellaneous Notes * Telephone Encounter - Maria Del Rosario Harp RN - 04/26/2023 1726 EDT Requested Prescriptions Pending Prescriptions Disp Refills ??? zolpidem (AMBIEN) 5 mg tablet [Pharmacy Med Name: ZOLPIDEM TARTRATE 5MG TABS] 28 Tablet 2 Sig: TAKE 1 TABLET BY MOUTH NIGHTLY AT BEDTIME. DAILY MAX: 1 TABLET (5 MG) [id number] - [facility], [place] - [address] Confirmed Pharmacy? Yes Patient out of medication? Unknown Last Refill Date: 03/03/23 #28 with 5 rf E-Prescribing Status: Receipt confirmed by pharmacy (03/03/2023 15:04 EDT) Has refills MARIA DEL ROSARIO HARP RN 04/26/2023 17:27 documented in this encounter Plan of Treatment Upcoming Encounters Date Type Department Care Team (Late st Contact Info) Description 06/29/2024 14:15 EDT Office Visit [facility] 3 [place] [address] Jean Munoz MD [address] [place] [phone] documented as of this encounter Visit [...] colon documented in this encounter Care Teams Telephone Surveyor Relationship Specialty Start Date End Date Jean Munoz MD [address] [place] [phone] PCP - General 12/31/08 Manny Rizzo MD [address] [place] [address] 04/20/10 Afia Valle MD [address] [facility] 2 [place] [phone] MD Care Team Radiation Oncology 07/02/21 Jesi Leong, [facility] 3 [place] [phone] Behavioral Health Insurance Claims SpecialistTin Can Feeder Care 10/19/22 01/23/24 documented as of this encounter
--- OUTSIDE RECORDS SUMMARY | 2024-06-10 07:05 | XMS_ITS | Encounter Summary ---
Author Organization [facility] Address [address] [place] [address] Care Team Providers Care Dipper Operator Name Role Phone Jean Munoz MD Primary Care Provider Manny Rizzo MD Unavailable Afia Valle MD Unavailable Jesi Leong LINE INSPECTOR Unavailable Reason for Visit * Reason Comments Anxiety Depression Encounter Details Date Type Department Care Team (Late st Contact Info) Description 05/11/2023 13:30 EDT Telemedicine [facility] [address] [place] [address] Jesi Leong, LINE INSPECTOR [address] [place] [address] Current moderate episode of major [...] or slept in a custodial (including now)? No 07/30/2022 Interpersonal Safety Answer [...] this encounter Progress Notes * Jesi Leong, [facility] - 05/11/2023 1330 EDT Images from the original note were not included. Primary Care Mental Health Integration Behavioral Health Live In Housekeeper Nanny Follow-up Collaborative Care / Psychotherapy Note Date of Service: 05/11/2023 Time of Service: 1:30pm Total Time: 24 minutes Collaborative Care Time Spent: 2 minutes Psychotherapy Time Spent: 22 minutes Psychotherapy Procedure Code: 41106 16-37mins individual f/u Appointment took place via telephone with patient. This visit was conducted by telephone. I spent a total of 24 minutes in discussion with the patientas described [...] Visit Chief Complaint Patient presents with ??? Anxiety ??? Depression Rationale for This Session Cognitive Behavior Therapy and Behavioral Activation is indicated to treat anxiety and depression and has been empirically documented to be effective in the treatment of this patient's condition. Rationale for Frequency and Duration of Services Consistent with patient request and treatment modality Information obtained from: patient interview Subjective Liset reports things going pretty good, reflects on partner, Will's, job change and now on 3rd shift, their relational dynamics going well. Will loves Liset's cats as she does. Liset articulates stressors impacting mood, phone / wi-fi down and unable to connect with [employer] to renew her emergency housing voucher. Waiting for them to phone her. Continues to work with [employer] Search Engine Optimization Specialist. Filling out applications as they come. Hasn't had the opportunity to attend [facility], discussed the once weekly meal they offer for $7 per person. Sent more details via text as requested. Liset reviews treatment plan with this consumer loan underwriter, states goals remain and we agree to add one around coping with uncertainty. Liset states use of restructuring her internal self-talk has been helpful,states she pulls out some of the CBT worksheets as needed when feeling stuck. Objective Mental Status Examination Appearance: unable to assess due to phone visit. Behavior: readily engaged in discussion Alertness: alert Speech: speech is of normal rate, tone, and spontaneity, use of language is is normal. Orientation: to person, place, time and situation Mood: neutral Affect: appropriately varied relative to content and context of discussion Thought Process: logical and future oriented. Memory: intact Judgment:fair Validated Behavioral Health Measures 01/05/2023 13:34 02/16/2023 15:02 03/22/2023 11:54 03/22/2023 11:56 04/05/2023 10:07 04/05/2023 10:09 05/11/2023 13:57 Risk Totals: MFQ, PHQ-9A, PHQ-2/PHQ-9, and HEYDI-7 PHQ-2 3 2 2 2 5 PHQ-9 16 10 10 9 14 PHQ-9 Interpretation Moderately Severe Depression Moderate Depression Moderate Depression Mild Depression Moderate Depression HEYDI-2 5 4 3 2 5 HEYDI-7 17 12 11 11 18 HEYDI-7 Interpretation Severe Anxiety Moderate Anxiety Moderate Anxiety Moderate Anxiety Severe Anxiety Current Medications Current Outpatient Medications Medication [...] DAY for allergies 90 Tablet 4 ??? ewkupbdqdaw-zzhvsgzel-twmxjubq (TRELEGY ELLIPTA) 200-62.5-25 mcg blister with device [...] Max: 4 Tablets 112 Tablet 0 ??? [START ON 05/22/2023] HYDROcodone-acetaminophen (NORCO) 7.5-325 mg per tablet Take [...] needed for Wheezing. 3 mL 3 ??? [employer]: [employer] check blood glucose twice daily. 100 Each [...] Max: 10 mg 28 Tablet 0 ??? [START ON 05/22/2023] methylphenidate HCl (RITALIN;METHYLIN) 10 mg tablet Take [...] unspecified whether recurrent (HCC) (primary encounter diagnosis) (F41.9) Anxiety Liset denies any current or recent suicidal ideation, plan or intent. Liset's symptoms of anxiety anddepression have increased over the past month as reflected in PHQ9 and GAD7 scores above. Contributing to her symptoms and presentation is her continued homelessness and urgency in finding an apartment to lease. It is unclear how much Emergency Housing [employer] will continue to approve. Liset reflects the challenges around living within a hotel room with her partner and her two cats, desiring to have their own apartment as soon as possible. Liset is utilizing emotion regulation skills asmeans of coping as well as re-framing when stuck in unhelpful thinking. We agree to meet in four weeks as Liset articulates her hope to be housed or nearly housed by the end of May as well as her desire to self-monitor her progress as we only have four visits remaining. Stage of Change: Action Recommendations and Plan 1. Recommended Level of Care: Brief Intervention 2. Continue current treatment plan 3. Follow up is scheduled for June 08, 2023 at 1:30pm via [employer] Zoom. 4. Complete Skills Practice: Continue to utilize emotion regulation skills, breath work, and re-framing / restructuring as needed 5. Care Management Needs: None at this time. 6. Continue current pharmacotherapy as applicable. ??? Expectations of Next Session: Continue current treatment plan ??? Anticipated Length of Treatment:4 additional monthly sessions ??? Anticipated Duration of Sessions: 30 minutes Jesi Leong [facility] 05/11/2023 21:49 PRIMARY CARE MENTAL HEALTH INTEGRATION BEHAVIORAL HEALTH SOLID STATE TESTER TREATMENT PLAN ?? Master Treatment Plan ?? Initial Completion Date: 01/06/2023 Updated: 05/11/2023 Review Due Date: 10-12 weeks from 05/11/2023 ?? DSM 5 Diagnosis: (F32.1) Current moderate episode of major depressive disorder, unspecified whetherrecurrent (HCC) (primary encounter diagnosis) ?? (F41.9) Anxiety ? Recommendation(s) &??Plan: To achieve the treatment goals, Liset Viera will: 1) Start??Behavioral Health intervention 1. Type of service(s):??individual 2. Frequency of service: Biweekly to monthly 3. Length of service: 30 minutes 4. Duration of service (expected): 12 total sessions 2) Goals of therapy in patient's own words: 1. Feeling less anxious about my situation 2. Feel better about what is going to happen 3. New to tolerate the uncertainty of my housing situation ?? 3) Objectives of therapy will be met by: 1. developing/improving strategies/coping skills and improving structure and support through Behavioral Activation/CBT and Cognitive Restructuring/CBT intervention(s) and via Acceptance & Commitment Therapy interventions 2. exploring/processing grief and loss and coping with stress through Cognitive Restructuring/CBT, Skills Practice and Psychoeducation intervention(s) ?? 4) Adjust treatment plan as necessary. Collaborative Care requires a change in treatment every 10-12 weeks if patient has not had at least a 50% improvement using a validated measure, such as PHQ-9(A), HEYDI-7 and/or PSC-17. ?? 5) Indicators of progress and goal attainment: patient report and ongoing monitoring of validated testing measures. ?? 6) Patient and care team will collaboratively plan for discontinuation/transfer of services based on qualitative and quantitative review of progress. ?? 7) Coordinate care with physician and psychiatric makeup sales consultant as needed. ?? documented in this encounter Plan of Treatment Upcoming Encounters Date Type Department Care Team (Late st Contact Info) Description 06/29/2024 14:15 EDT Office Visit [facility] [address] [place], [place] [phone] Jean Munoz MD [address] [place] [address] documented as of this encounter Visit Diagnoses Diagnosis Current moderate episode of major depressive disorder, unspecified whether recurrent ([facility])- Primary Anxiety Anxiety state, unspecified Screening for osteoporosis- Primary Special screening for osteoporosis Primary narcolepsy without cataplexy Chronic pain syndrome Chronic low back pain Lumbago Chronic use of opiate for therapeutic purpose Pain medication agreement Encounter for long-term (current) use of other medications Screen for colon cancer Special screening for malignant neoplasms, colon documented in this encounter Care Teams Dipper Operator Relationship Specialty Start Date End Date Jean Munoz MD [address] [place] [address] PCP - General 12/31/08 Manny Rizzo MD [address] [place] [phone] 04/20/10 Afia Valle MD [address] [facility] 2 [place] [phone] Care Team Radiation Oncology 07/02/21 Jesi Leong, [facility] [address] [place] [address] Behavioral Health Live In Housekeeper NannyEarly Education Teacher Care 10/19/22 01/23/24 documented as of this encounter
--- OUTSIDE RECORDS SUMMARY | 2024-06-10 07:05 | XMS_ITS | Encounter Summary ---
Author Organization [facility] Address [address] [place] [address] Care Team Providers Care Neck Band Setter Name Role Phone Jean Munoz MD Primary Care Provider Manny Rizzo MD Unavailable Afia Valle MD Unavailable [phone] Jesi Leong BOX BENDER Unavailable Reason for Visit * Reason Comments Anxiety Depression Encounter Details Date Type Department Care Team (Late st Contact Info) Description 04/05/2023 15:00 EDT Telemedicine [facility] [address] [place] [address] Jesi Leong, BOX BENDER [address] [place] [address] Current moderate episode of major [...] or slept in a detention (including now)? No 07/30/2022 Interpersonal Safety Answer [...] Progress Notes * Jesi Leong LICSW - 04/05/2023 1500 EDT Primary Care Mental Health Integration Behavioral Health Collection Systems Administrator Follow-up Collaborative Care / Psychotherapy Note Date of Service: 04/05/2023 Time of Service: 3pm Total Time: 29 minutes Collaborative Care Time Spent: 2 minutes Psychotherapy Time Spent: 27 minutes Psychotherapy Procedure Code: 33152 16-37mins individual f/u Appointment took place via televideo with patient. TELEMEDICINE VIDEO VISIT Today's visit was provided through telemedicine video conferencing: I have reviewed the appropriateness of using video technology with the patient with regards to today's visit. The location of the patient : Home Patient location state: Visit Location State: [place] The location of the provider: Office Provider location state: Visit Location State: [place] The following people and their roles were [...] from: patient interview Subjective Liset reports feeling not too bad, things going ok. Shares anxious feeling stem from not knowing where I'm going from here. Internal narrative am I going to be in better place than here. Grateful two of her cats are now with her. Liset states she has experienced some feelings of panic related to the uncertainty. Liset states when she has a highly anxious day she can't eat, will curl in ball and sleep. Walked through Anxiety Restructuring activity together. Feeling the depression is littlebetter. Partner starting new job and will have an increase in income. Liset trying to reduce isolation, notes there are some good people here (the hotel they are staying). Finds self playing on computer / tablet, taking baths, reading book. Contemplating going to local [place], provided herthe address today. Objective Mental Status Examination Appearance: casually dressed, well groomed, and appears WNL. Behavior: readily engaged in discussion Alertness: alert Speech: speech is of normal rate, tone, and spontaneity, use of language is is normal. Orientation: to person, place, time and situation Mood: neutral Affect: appropriately varied relative to content and context of discussion Thought Process: organized and future oriented. Memory: intact Judgment:fair Validated Behavioral Health Measures Risk Totals: MFQ, PHQ-9A, PHQ-2/PHQ-9, and HEYDI-7 12/24/2021 10/19/2022 11/24/2022 01/05/2023 02/16/2023 03/22/2023 04/05/2023 PHQ-2 6 5 3 3 2 2 2 PHQ-9 26 17 9 16 10 10 9 PHQ-9 Interpretation Severe Depression Moderately Severe Depression Mild Depression Moderately Severe Depression Moderate Depression Moderate Depression Mild Depression HEYDI-2 6 6 3 5 4 3 2 HEYDI-7 21 20 13 17 12 11 11 HEYDI-7 Interpretation Severe Anxiety Severe Anxiety Moderate Anxiety Severe Anxiety Moderate AnxietyModerate Anxiety Moderate Anxiety Current Medications Current Outpatient [...] DAY for allergies 90 Tablet 4 ??? dvvmcbqxasa-odvyagwgg-ditsjmwf (TRELEGY ELLIPTA) 200-62.5-25 mcg blister with device [...] Tablets 112 Tablet 0 ??? [START ON 04/24/2023] HYDROcodone-acetaminophen (NORCO) 7.5-325 mg per tablet Take [...] mouth at bedtime. 180 Tablet 1 ??? [START ON 04/24/2023] methylphenidate HCl (RITALIN;METHYLIN) 10 mg tablet Take 1 Tablet by mouthdaily for 28 days. For narcolepsy. Daily Max: [...] mg 28 Tablet 0 ??? [START ON 04/24/2023] methylphenidate HCl (RITALIN;METHYLIN) 20 mg tablet Take [...] recurrent (HCC) (primary encounter diagnosis) (F41.9) Anxiety .Liset denies any current suicidal ideation, plan or intent. Liset's mood has improved since we last met, however, anxiety remains steady at Moderate level. Liset is holding uncertainty; we explored some themes / techniques from Acceptance & Commitment Therapy today. Liset expresses gratitude that the Frothing Machine Operator working with them is attentive and engaged. [facility] addressing her anxiety. Liset confirmed receipt of CBT / ACT materials sent via mail. Today we completed Anxiety Restructuring together. Will continue to use these workbooktools as we meet in future. Stage of Change: Action Recommendations and Plan 1. Recommended Level of Care: Brief Intervention 2. Continue current treatment plan 3. Follow up is scheduled for April 19 at 3pm via [employer]. 4. Complete Skills Practice: Continue awareness of internal self-talk/restructure 5. Care Management Needs: None at this time. 6. Continue current pharmacotherapy as applicable. ??? Expectations of Next Session: Continue current treatment plan ??? Anticipated Length of Treatment:5 additional every other week sessions ??? Anticipated Duration of Sessions: 30 minutes FADUMO Salcedo 04/05/2023 15:34 documented in this encounter Plan of Treatment Upcoming Encounters Date Type Department Care Team (Late st Contact Info) Description 06/29/2024 14:15 EDT Office Visit [facility] [address] [place] [address] Jean Munoz MD [address] [place] [address] documented as of this encounter Visit Diagnoses Diagnosis Current moderate episode of major depressive disorder, unspecified whether recurrent (HCC-CMS)- Primary Anxiety Anxiety state, unspecified Screening for osteoporosis- Primary Special screening for osteoporosis Primary narcolepsy without cataplexy Chronic pain syndrome Chronic low back pain Lumbago Chronic use of opiate for therapeutic purpose Pain medication agreement Encounter for long-term (current) use of other medications Screen for colon cancer Special screening for malignant neoplasms, colon documented in this encounter Care Teams Neck Band Setter Relationship Specialty Start Date End Date Jean Munoz MD [address] [place] [address] PCP - General 12/31/08 Manny Rizzo MD [address] [place] [phone] 04/20/10 Afia Valle MD [address] [place] [address] 2 [place] [phone] MD Care Team Radiation Oncology 07/02/21 Jesi Leong, [facility] [address] [place] [phone] Behavioral Health Collection Systems AdministratorProject Coordinator Care 10/19/22 01/23/24 documented as of this encounter
--- OUTSIDE RECORDS SUMMARY | 2024-06-10 07:05 | XMS_ITS | Encounter Summary ---
Author Organization [facility] Address [address] [place] [address] Care Team Providers Care Firer Glost Kiln Name Role Phone Jean Munoz MD Primary Care Provider Manny Rizzo MD Unavailable Afia Valle MD Unavailable Jesi Leong EXTRUSION SUPERVISOR Unavailable Encounter Details Date Type Department Care Team (Late st Contact Info) Description 06/22/2023 Patient Outreach [facility] 3 [place] [address] Jesi Leong EXTRUSION SUPERVISOR [address] [place] [address] Social History Tobacco Use Types [...] or slept in a residential (including now)? No 07/30/2022 Interpersonal Safety Answer [...] Progress Notes * Jesi Leong LICSW - 06/22/2023 1343 EDT Primary Care Mental Health Integration Behavioral Health Hoop Driving Machine Operator Encounter 06/22/2023 Time Spent: 2 minutes in Direct and Indirect Collaborative Care Encounter Type: Telephone Encounter Contact: patient Collaborative Care Activities: Outreach/engagement Summary of Care Provided: This tag writer was scheduled to meet w/ Liset on this date at 1:30pm. Liset doesn't arrive to the [employer] [facility]. Phoned Liset at 1:35pm. Liset shares she's been sleeping, feeling unwell. Validated Behavioral Health Measures 03/22/2023 11:54 03/22/2023 [...] Anxiety Moderate Anxiety Severe Anxiety Mild Anxiety Plan: Liset requests reschedule, agree to reschedule for TuJul 06, 2023 at 1:30pm via [employer]. documented in this encounter Plan of Treatment Upcoming Encounters Date Type Department Care Team (Late st Contact Info) Description 06/29/2024 14:15 EDT Office Visit [facility] 3 [place] [address] Jean Munoz MD [address] [place] [phone] documented as of this encounter Visit Diagnoses Not on filedocumented in this encounter Care Teams Firer Glost Kiln Relationship Specialty Start Date End Date Jean Munoz MD [address] [place] [address] PCP - General 12/31/08 Manny Rizzo MD [address] [place] [phone] 04/20/10 Afia Valle MD [address] [facility], Level [address] [place] [address] Care Team Radiation Oncology 07/02/21 Jesi Leong [facility] 3 [place] [address] Behavioral Health Hoop Driving Machine OperatorMedical Physiologist Care 10/19/22 01/23/24 documented as of this encounter
--- OUTSIDE RECORDS SUMMARY | 2024-06-10 07:05 | XMS_ITS | Encounter Summary ---
Author Organization [facility] Address [address] [place] [address] Care Team Providers Care Floorman Name Role Phone Jean Munoz MD Primary Care Provider Manny Rizzo MD Unavailable Afia Valle MD Unavailable Jesi Leong HAND MITER OPERATOR Unavailable Encounter Details Date Type Department Care Team (Late st Contact Info) Description 04/19/2023 Patient Outreach [facility] 3 [place] [address] Jesi Leong HAND MITER OPERATOR 3 [place] [address] Social History Tobacco Use Types [...] or slept in a mcfp (including now)? No 07/30/2022 Interpersonal Safety Answer [...] Progress Notes * Jesi Leong LICSW - 04/19/2023 1446 EDT Images from the original note were not included. Primary Care Mental Health Integration Behavioral Health Cut Out Stitcher Encounter 04/19/2023 Time Spent: 1 minutes in Direct and Indirect Collaborative Care Encounter Type: Telephone via TEXT Encounter Contact: patient Collaborative Care Activities: Outreach/engagement Summary of Care Provided: Liset reached out to this remote mortgage underwriter via text at 2:20pm on this date. She asks to cancel our 3pm visit noting she is having narcolepsy symptoms today, difficulty keepingawake for more than 10 minutes at a time. Validated Behavioral Health Measures 11/24/2022 13:53 01/05/2023 13:34 02/16/2023 15:02 03/22/2023 11:54 03/22/2023 11:56 04/05/2023 10:07 04/05/2023 10:09 Risk Totals: MFQ, PHQ-9A, PHQ-2/PHQ-9, and HEYDI-7 PHQ-2 3 3 2 2 2 PHQ-9 9 16 10 10 9 PHQ-9 Interpretation Mild Depression Moderately Severe Depression Moderate Depression Moderate Depression Mild Depression HEYDI-2 3 5 4 3 2 HEYDI-7 13 17 12 11 11 HEYDI-7 Interpretation Moderate Anxiety Severe Anxiety Moderate Anxiety Moderate Anxiety Moderate Anxiety Plan: Agree to cancel today; next visit as scheduled on 05/11 at 1:30pm. documented in this encounter Plan of Treatment Upcoming Encounters Date Type Department Care Team (Late st Contact Info) Description 06/29/2024 14:15 EDT Office Visit [facility] 3 [place] [address] Jean Munoz MD [address] [place] [address] documented as of this encounter Visit Diagnoses Not on filedocumented in this encounter Care Teams Floorman Relationship Specialty Start Date End Date Jean Munoz MD 3 [place] [address] PCP - General 12/31/08 Manny Rizzo MD [address] [place] [phone] 04/20/10 Afia Valle MD [address] [place] [address], [facility] 2 [place] [address] MD Care Team Radiation Oncology 07/02/21 Jesi Leong, [facility] 3 [place] [address] Behavioral Health Cut Out StitcherTerrazzo Roller Care 10/19/22 01/23/24 documented as of this encounter
--- OUTSIDE RECORDS SUMMARY | 2024-06-10 07:05 | XMS_ITS | Encounter Summary ---
Author Organization [facility] Address [address] [place] [address] Care Team Providers Care Relay Worker Name Role Phone Jean Munoz MD Primary Care Provider Manny Rizzo MD Unavailable Afia Valle MD Unavailable Jesi Leong Unavailable Reason for Visit * Reason Onset Date Comments Medications Refill 03/03/2023 Encounter Details Date Type Department Care Team (Late st Contact Info) Description 03/03/2023 Refill [facility] 3 [place] [address] Jean Munoz MD 3 [place] [address] Medications Refill Social History Tobacco [...] place to sleep or slept in a assisted (including now)? No 07/30/2022 Interpersonal Safety Answer [...] mg 28 Tablet 5 03/03/2023 10/06/2023 documented in this encounter Miscellaneous Notes * Telephone Encounter - Nata Pineda - 03/03/2023 1123 EDT Medication(s) Requested: Zolpidem Preferred Pharmacy: [facility] Is patient out of medication? Unknown Last Refill Date: unknown Last Visit Date with Ordering Provider: Visit date not found Next Non-Acute Visit Date Scheduled with Care Team: 03/22/2023 Nata Pineda 03/03/2023 11:23 documented in this encounter Plan of Treatment Upcoming Encounters Date Type Department Care Team (Late st Contact Info) Description 06/29/2024 14:15 EDT Office Visit [facility] 3 [place] [address] Jean Munoz MD [address] [place] [address] documented as of this encounter Visit Diagnoses Diagnosis Insomnia, unspecified type Screening for osteoporosis- Primary [...] at bedtime. Daily Max: 5 mg Reorder 10/01/2022 03/03/2023 documented as of this encounter Care Teams Relay Worker Relationship Specialty Start Date End Date Jean Munoz MD 3 [place] [address] PCP - General 12/31/08 Manny Rizzo MD [address] [place] [phone] 04/20/10 Afia Valle MD [address] [place] [address] 2 [place] [phone] Care Team Radiation Oncology 07/02/21 Jesi Leong, [facility] [address] [place] [address] Behavioral Health Ore MinerEntry Level Software Developer Care 10/19/22 01/23/24 documented as of this encounter
--- OUTSIDE RECORDS SUMMARY | 2024-06-10 07:05 | XMS_ITS | Encounter Summary ---
Author Organization [facility] Address [address] [place] [address] Care Team Providers Care Layout Designer Name Role Phone Jean Munoz MD Primary Care Provider Manny Rizzo MD Unavailable Afia Valle MD Unavailable Jesi Leong FIBERGLASS DOWEL DRAWING OPERATOR Unavailable [phone] Encounter Details Date Type Department Care Team (Late st Contact Info) Description 07/06/2023 Patient Outreach [facility] 3 [place] [address] Jesi Leong FIBERGLASS DOWEL DRAWING OPERATOR 3 [place] [address] Social History Tobacco Use Types [...] or slept in a longterm (including now)? No 07/30/2022 Interpersonal Safety Answer [...] Progress Notes * Jesi Leong LICSW - 07/06/2023 1225 EDT Images from the original note were not included. Primary Care Mental Health Integration Behavioral Health Cooker Loader Encounter 07/06/2023 Time Spent: 2 minutes in Direct and Indirect Collaborative Care Encounter Type: Text Message Encounter Contact: patient Collaborative Care Activities: Outreach/engagement Summary of Care Provided: This check writer salesperson received a text from Liset at 11am on this date. She requests we cancel our 1:30pm visit due to illness. Validated Behavioral Health Measures 03/22/2023 11:54 03/22/2023 [...] Mild Anxiety Plan: Agree to reschedule for July 20, 2023 at 1:30pm via tele-health. documented in this encounter Plan of Treatment Upcoming Encounters Date Type Department Care Team (Late st Contact Info) Description 06/29/2024 14:15 EDT Office Visit [facility] 3 [place] [address] Jean Munoz MD 3 [place] [address] documented as of this encounter Visit Diagnoses Not on filedocumented in this encounter Care Teams Layout Designer Relationship Specialty Start Date End Date Jean Munoz MD 3 [place] [phone] PCP - General 12/31/08 Manny Rizzo MD [address] [place] [address] 04/20/10 Afia Valle MD [address] [place] [address] 2 [place] [phone] MD Care Team Radiation Oncology 07/02/21 Jesi Leong, [facility] 3 [place] [address] Behavioral Health Cooker LoaderVascular Nurse Care 10/19/22 01/23/24 documented as of this encounter
--- OUTSIDE RECORDS SUMMARY | 2024-06-10 07:05 | XMS_ITS | Encounter Summary ---
Author Organization [facility] Address [address] [place] [address] Care Team Providers Care Projects Manager Name Role Phone Jean Munoz MD Primary Care Provider Manny Rizzo MD Unavailable Afia Valle MD Unavailable Jesi Leong Unavailable [phone] Reason for Visit * Reason Onset Date Comments Medications Refill 07/16/2023 Encounter Details Date Type Department Care Team (Late st Contact Info) Description 07/16/2023 Telephone [facility] 3 [place] [address] Jean Munoz MD [address] [place] [address] Medications Refill Social History Tobacco [...] Telephone Encounter - Armand Chapman RN - 07/16/2023 1637 EDT Images from the original note were not included. Spoke with pharmacy staff: Stating that they have received all of the prescriptions from Dr. Munoz. However patient has filled early too many times, so insurance will not allow her to waste picker yet as she is not due yet based on last fill. Spoke with patient to explain above. Patient stating that all she was calling to ensure that she could waste picker her medications tomorrow and is not out yet. Advised that it appears tomorrow should be approved, but that patient needs to check in with the pharmacy as this is an insurance issue and the prescriptions from this office are correct and have been received by the pharmacy. Patient verbalized understanding and agrees with plan. No barriers to learning identified. ARMAND CHAPMAN RN 07/16/2023 16:43 * Telephone Encounter - Chana Cuellar - 07/16/2023 1346 EDT Medication(s) Requested methylphenidate HCl (RITALIN;METHYLIN) 10 mg tablet methylphenidate HCl (RITALIN;METHYLIN) 20 mg tablet Pharmacy [id number] - [place], [place] - [address] [facility] [phone] [address] [facility] [address] Next Visit Date 07/20/2023 Last Visit Date 07/15/2023 Out of Medication? Yes The pharmacy does not have a received receipt of the medication, please resend Chana Cuellar 07/16/2023 13:46 documented in this encounter Plan of Treatment Upcoming Encounters Date Type Department Care Team (Late st Contact Info) Description 06/29/2024 14:15 EDT Office Visit [address] [place] [address] Jean Munoz MD [address] [place] [address] documented as of this encounter Visit Diagnoses Not on filedocumented in this encounter Care Teams Projects Manager Relationship Specialty Start Date End Date Jean Munoz MD [address] [place] [address] PCP - General 12/31/08 Manny Rizzo MD [address] [place] [phone] 04/20/10 Afia Valle MD [address] [place] [address] 2 [place] [phone] MD Care Team Radiation Oncology 07/02/21 Jesi Leong, [facility] [address] [place] [address] Behavioral Health Felt Hat Flanging OperatorTemperature Inspector Care 10/19/22 01/23/24 documented as of this encounter
--- OUTSIDE RECORDS SUMMARY | 2024-06-10 07:05 | XMS_ITS | Encounter Summary ---
Author Organization [facility] Address [address] [place] [address] Care Team Providers Care Appeals Manager Name Role Phone Jean Munoz MD Primary Care Provider Manny Rizzo MD Unavailable Afia Valle MD Unavailable Jesi Leong Unavailable [phone] Reason for Visit * Reason Onset Date Comments Medications Refill 05/19/2023 Encounter Details Date Type Department Care Team (Late st Contact Info) Description 05/19/2023 Refill [facility] 3 [place] [address] Jean Munoz MD [address] [place] [address] Medications Refill Social History Tobacco [...] place to sleep or slept in a fpc (including now)? No 07/30/2022 Interpersonal Safety Answer [...] narcolepsy. Daily Max: 40 mg 56 Tablet 05/22/2023 06/15/2023 documented in this encounter Miscellaneous Notes * Telephone Encounter - Jean Munoz MD - 05/20/2023 0958 EDT Rx sent. * Telephone Encounter - Armand Chapman RN - 05/20/2023 0947 EDT Images from the original note were not included. Routing to provider to review. ARMAND CHAPMAN RN 05/20/2023 9:55 * Telephone Encounter - RUSSELL Fitzpatrick - 05/19/2023 1511 EDT Medication(s) Requested methylphenidate HCl (RITALIN;METHYLIN) 20 mg tablet Pharmacy [id number] - [place], [place] - [address] Per meds tab, Hydrocodone and methylphenidate 10mg set to delivery on 05/22/23 but is missing 20mg medication above. Next Visit Date 06/08/2023 Last Visit Date Visit date not found Out of Medication? No, but will be out as of 05/22/23 RUSSELL Fitzpatrick 05/19/2023 15:12 documented in this encounter Plan of Treatment Upcoming Encounters Date Type Department Care Team (Late st Contact Info) Description 06/29/2024 14:15 EDT Office Visit [facility] 3 [place] [address] Jean Munoz MD [address] [place] [address] documented as of this encounter [...] colon documented in this encounter Care Teams Appeals Manager Relationship Specialty Start Date End Date Jean Munoz MD [address] [place] [address] PCP - General 12/31/08 Manny Rizzo MD [address] [place] [address] 04/20/10 Afia Valle MD [address] [place] [address] 2 [place] [phone] MD Care Team Radiation Oncology 07/02/21 Jesi Leong, [facility] [address] [place] [phone] Behavioral Health Digital Marketing OfficerStreet Light Wirer Care 10/19/22 01/23/24 documented as of this encounter
--- OUTSIDE RECORDS SUMMARY | 2024-06-10 07:05 | XMS_ITS | Encounter Summary ---
Author Organization [facility] Address [address] [place] [address] Care Team Providers Care Preparation Center Coordinator Name Role Phone Jean Munoz MD Primary Care Provider Manny Rizzo MD Unavailable Afia Valle MD Unavailable [phone] Jesi Leong Unavailable [phone] Reason for Visit * Reason Onset Date Comments Medication Questions 05/21/2023 Encounter Details Date Type Department Care Team (Late st Contact Info) Description 05/21/2023 Telephone [facility] 3 [place] [address] Jean Munoz MD [address] [place] [address] Medication Questions Social History Tobacco [...] or slept in a fci (including now)? No 07/30/2022 Interpersonal Safety Answer [...] encounter Miscellaneous Notes * Telephone Encounter - Antionette Nichols - 05/21/2023 9217 EDT Pt called asking if we called in her Methylphenidate. Cryolite Recovery Operator let her know that we did order those medications to the [facility] in [place]. Not routing TE at this time. documented in this encounter Plan of Treatment Upcoming Encounters Date Type Department Care Team (Late st Contact Info) Description 06/29/2024 14:15 EDT Office Visit [facility] 3 [place] [address] Jean Munoz MD [address] [place] [address] documented as of this encounter Visit Diagnoses Not on filedocumented in this encounter Care Teams Preparation Center Coordinator Relationship Specialty Start Date End Date Jean Munoz MD [address] [place] [phone] PCP - General 12/31/08 Manny Rizzo MD [address] [place] [phone] 04/20/10 Afia Valle MD [address] [place] [address] 2 [place] [phone] Care Team Radiation Oncology 07/02/21 Jesi Leong [facility] [address] [place] [phone] Behavioral Health Senior Manufacturing TechnicianBanking Supervisor Care 10/19/22 01/23/24 documented as of this encounter
--- OUTSIDE RECORDS SUMMARY | 2024-06-10 07:05 | XMS_ITS | Encounter Summary ---
Author Organization [facility] Address [address] [place] [address] Care Team Providers Care Bi Solutions Architect Name Role Phone Jean Munoz MD Primary Care Provider Manny Rizzo MD Unavailable Afia Valle MD Unavailable Jesi Leong Unavailable Reason for Visit * Reason Onset Date Comments Prior Auth, Medication 03/29/2023 [facility] Encounter Details Date Type Department Care Team (Late st Contact Info) Description 03/29/2023 Telephone [facility] [address] [place] [address] Jean Munoz MD [address] [place] [address] Prior Auth, Medication ([place]) Social History Tobacco Use Types Packs/Day Years [...] Date Record ed How often does anyone, incldean long family, hit, punch or physically hurt [...] encounter Miscellaneous Notes * Telephone Encounter - Teetee Marshall LPN - 03/29/2023 1509 EDT Medication: Roflum[employer] Insurance Co: Medicaid Approval # (if applicable): [id number] Approval dates: 03/29/2023-03/29/2024 Quantity/Days Supply: Name of Pharmacy notified: [facility] * Telephone Encounter - Teetee Marshall LPN - 03/29/2023 1111 EDT Prior authorization initiated via [facility] for [employer] Awaiting response. documented in this encounter Plan of Treatment Upcoming Encounters Date Type Department Care Team (Late st Contact Info) Description 06/29/2024 14:15 EDT Office Visit [facility] [address] [place], [place] [id number] Jean Munoz MD [address] [place] [address] documented as of this encounter Visit Diagnoses Not on filedocumented in this encounter Care Teams Bi Solutions Architect Relationship Specialty Start Date End Date Jean Munoz MD [address] [place] [address] PCP - General 12/31/08 Manny Rizzo MD [address] [place] [phone] 04/20/10 Afia Valle MD [address] [facility] 2 [place] [address] MD Care Team Radiation Oncology 07/02/21 Jesi Leong, [facility] [address] [place] [address] Behavioral Health Marine PilotIndustrial Relations Commissioner Care 10/19/22 01/23/24 documented as of this encounter
--- OUTSIDE RECORDS SUMMARY | 2024-06-10 07:05 | XMS_ITS | Encounter Summary ---
Author Organization [facility] Address [address] [place] [address] Care Team Providers Care Alfalfa Dehydrator Operator Name Role Phone Jean Munoz MD Primary Care Provider Manny Rizzo MD Unavailable Afia Valle MD Unavailable Jesi Leong TURRET LATHE MACHINIST Unavailable Reason for Visit * Reason Comments Anxiety Depression Other Homelessness Encounter Details Date Type Department Care Team (Late st Contact Info) Description 08/03/2023 13:30 EST Telemedicine [facility] [place] [address] [place] [address] Jesi Leong, TURRET LATHE MACHINIST [address] [place] [address] Current moderate episode of major [...] Date Record ed How often does anyone, clauida long family, hit, punch or physically hurt [...] this encounter Progress Notes * Jesi Leong, [facility] - 08/03/2023 1330 EST Images from the original note were not included. Primary Care Mental Health Integration Collaborative Care Mental Health Clinician Follow-up Note Date of Service: 08/03/2023 Time of Service: 1:30pm Total Time: 30 minutes Collaborative Care Time Spent: 2 minutes Psychotherapy Time Spent: 28 minutes Psychotherapy Procedure Code: [id number] 16-37mins individual f/u Appointment took place via televideo with patient. This visit was conducted by telephone. I spent a total of 30 minutes in discussion with the patientas described [...] Patient presents with ??? Anxiety ??? Depression ??? Other Homelessness Rationale for This Session Cognitive Behavior Therapy, Behavioral Activation and Problem-Solving Therapy is indicated to treatanxiety and depression and has been empirically documented to be effective in the treatment of thispatient's condition. Rationale for Frequency and Duration of Services Consistent with patient request and treatment modality Information obtained from: patient interview Subjective Liset reports mood alright. Reflects on recent two moves, first to [place] and then to [employer]. Cats now reunited with her. States appreciates being on bus line again. Liset expresses grief / loss themes, this Thanksgiving first she won't be cooking the meal. Likely to bus to [employer] to participate in the community meal offered there. States struggle with sleep too much, not from narcolepsy, more depressive space. States lacks appetite, in part due to ability / access to food / cooking. Aware of [employer] (sent full details after this call via text). Anticipatory anxiety present, seeing a studio apartment on [address] tomorrow, she and Will plan to rent on their own. Concern for daughter, Yadira, in [place], whose health challenges remain, infusions every two weeks. Liset shares aware of pulmonary visit tomorrow, she's not worried about this. Plans to have labsdrawn while on campus if lab not too busy. Continued anxiety around uncertainty of future, but tomasz by managing what is within her control (for example, is washing dishes while we chat and cleaned litter box). Objective Mental Status Examination Appearance: unable to assess, visit held by phone. Behavior: readily engaged in discussion Alertness: alert Speech: speech is of normal rate, tone, and spontaneity, use of language is is normal. Orientation: to person, place, time and situation Mood: alright Affect: appropriately varied relative to content and context of discussion Thought Process: organized and future oriented. Memory: intact Judgment:fair Validated Behavioral Health Measures 04/05/2023 10:07 04/05/2023 10:09 05/11/2023 13:57 06/08/2023 12:35 06/08/2023 12:36 07/15/2023 11:15 08/03/2023 13:35 Risk Totals: MFQ, PHQ-9A, PHQ-2/PHQ-9, and HEYDI-7 PHQ-2 2 5 2 2 3 PHQ-9 9 14 8 16 PHQ-9 Interpretation Mild Depression Moderate Depression Mild Depression Moderately Severe Depression HEYDI-2 2 5 3 4 HEYDI-7 11 18 8 15 HEYDI-7 Interpretation Moderate Anxiety Severe Anxiety Mild Anxiety Severe Anxiety Current Medications Current Outpatient Medications Medication Sig Dispense Refill ??? benzonatate (TESSALON) 100 mg capsule Take 1 Capsule by mouth 3 times daily as needed for Cough. 80 Capsule 3 ??? busPIRone (BUSPAR) 15 mg tablet Take 1 Tablet by mouth 3 times daily. 270 Tablet 3 ??? Ciclesonide 50 mcg spray,non-aerosol 1 spray each nostril daily (Patient not taking: Reported on 07/15/2023) 37.5 g 5 ??? cycloSPORINE (RESTASIS) 0.05 [...] DAY for allergies 90 Tablet 4 ??? jzrhzbdnlzx-eoyhfhnnn-jzavczsf (TRELEGY ELLIPTA) 200-62.5-25 mcg blister with device Inhale 1 Puff as directed daily. 60 Each 5 ??? [START ON 09/09/2023] HYDROcodone-acetaminophen (NORCO) 7.5-325 mg per tablet Take 1 Tablet by mouth every 6 hours for 28 days. For chronic pain. Daily Max: 4 Tablets 112 Tablet 0 ??? [START ON 08/12/2023] HYDROcodone-acetaminophen (NORCO) 7.5-325 mg per tablet Take [...] WHEEZING/SHORTNESS OF BREATH DIRECTED 15 g 3 ??? lidocaine (XYLOCAINE) 2 % solution 5 ML, mixed with 5 ml mylanta or maalox, swish and swallow for swallowing pain. 100 mL 2 ??? methocarbamoL (ROBAXIN) 500 mg tablet TAKE TWO TABLETS BY MOUTH DAILY AT BEDTIME 180 Tablet 1 ??? [START ON 09/09/2023] methylphenidate HCl (RITALIN;METHYLIN) 10 mg tablet Take 1 Tablet by mouth daily for 28 days. For narcolepsy. Daily Max: 10 mg 28 Tablet 0 ??? [START ON 08/12/2023] methylphenidate HCl (RITALIN;METHYLIN) 10 mg tablet Take 1 Tablet by mouth daily for 28 days. For narcolepsy. Daily Max: 10 mg 28 Tablet 0 ??? methylphenidate HCl (RITALIN;METHYLIN) 10 mg tablet Take 1 Tablet by mouth daily for 28 days. For nacolepsy Daily Max: 10 mg 28 Tablet 0 ??? [START ON 09/09/2023] methylphenidate HCl (RITALIN;METHYLIN) 20 mg tablet Take 2 Tablets by mouth daily for 28 days. For narcolepsy. Daily Max: 40 mg 56 Tablet 0 ??? [START ON 08/12/2023] methylphenidate HCl (RITALIN;METHYLIN) 20 mg tablet Take 2 Tablets by mouth daily for 28 days. For narcolepsy. Daily Max: 40 mg 56 Tablet 0 ??? methylphenidate HCl (RITALIN;METHYLIN) 20 mg tablet Take 1 Tablet by mouth 2 times daily for 28days. Daily Max: 40 mg 56 Tablet 0 [...] AT ONSET OF MIGRAINE 9 Tablet 2 ??? zolpidem (AMBIEN) 5 mg tablet Take 1 Tablet by mouth at bedtime. Daily Max: 5 mg 28 Tablet 5 No current facility-administered medications for this visit. Psychopharmacology: Compliance:compliant all of the time Effectiveness:Yes Side Effects: None noted. Assessment (include DSM V diagnosis, progress since last session, and decision making regarding treatment plan) Liset is a 62 y.o. female presenting with (F32.1) Current moderate episode of major depressive disorder, unspecified whether recurrent ([facility]) (primary encounter diagnosis) (F41.9) Anxiety Liset reflects on passive suicidal ideation, denies any plan or intention to end life by suicide. Liset's symptoms of depression and anxiety have increased since we last met. Drivers of this include having to move twice since we last met, no longer in [facility]. Liset shares she and Will intent to rent their own apartment; will view a studio tomorrow. Liset expresses hopes for permanent housingsoon as the uncertainty of their future has contributed to her mood and anxiousness. Liset reflects on themes of grief and irritability too that she's been experiencing, everybody's needy and feels others are more needy than she is. Liset is [facility] 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 Stage of Change: Action Recommendations and Plan 1. Recommended Level of Care: Brief Intervention 2. Continue current treatment plan 3. Follow up is scheduled for August 24, 2023 at 11:30a via [employer]. 4. Complete Skills Practice: Lean into natural supports, behavioral activation (shaggy, time with cats). Recognize internal self-talk, unhelpful thinking. 5. Care Management Needs: Will attend visit w/ Pulmonary tomorrow and possibly get labs drawn if lab isn't too busy. 6. Continue current pharmacotherapy as applicable. ??? Expectations of Next Session: Continue current treatment plan ??? Anticipated Length of Treatment:2 additional every other week or monthly sessions ??? Anticipated Duration of Sessions: 30 minutes FADUMO Salcedo 08/03/2023 14:16 documented in this encounter Plan of Treatment Upcoming Encounters Date Type Department Care Team (Late st Contact Info) Description 06/29/2024 14:15 EDT Office Visit [facility] [address] [place] [address] Jean Munoz MD [address] [place] [phone] documented as of this encounter Visit Diagnoses Diagnosis Current moderate episode of major depressive disorder, unspecified whether recurrent ([facility])- Primary Anxiety Anxiety state, unspecified Screening for osteoporosis- Primary Special screening for osteoporosis Primary narcolepsy without cataplexy Chronic pain syndrome Chronic low back pain Lumbago Chronic use of opiate for therapeutic purpose Pain medication agreement Encounter for long-term (current) use of other medications Screen for colon cancer Special screening for malignant neoplasms, colon documented in this encounter Care Teams Alfalfa Dehydrator Operator Relationship Specialty Start Date End Date Jaen Munoz MD [address] [place] [phone] PCP - General 12/31/08 Manny Rizzo MD [address] [place] [phone] 04/20/10 Afia Valle MD [address] [place] [address], [facility] [address] [place] [address] MD Care Team Radiation Oncology 07/02/21 Jesi Leong, [facility] [address] [place] [phone] Behavioral Health Dental TechnologistEgg And Spice Mixer Care 10/19/22 01/23/24 documented as of this encounter
--- OUTSIDE RECORDS SUMMARY | 2024-06-10 07:05 | XMS_ITS | Encounter Summary ---
Author Organization [facility] Address [address] [place] [address] Care Team Providers Care Special Events Planner Name Role Phone Jean Munoz MD Primary Care Provider Manny Rizzo MD Unavailable Afia Valle MD Unavailable [phone] Jesi Leong Unavailable Reason for Visit * Reason Onset Date Comments Prior Auth, Medication 07/01/2023 Encounter Details Date Type Department Care Team (Late st Contact Info) Description 07/01/2023 Telephone [facility] [address] [place] [address] Jean Munoz MD [address] [place] [phone] Prior Auth, Medication Social History Tobacco Use Types Packs/Day Years [...] encounter Miscellaneous Notes * Telephone Encounter - Kaitlyn Montero LPN - 07/01/2023 1338 EDT Received fax from [place] medicaid stating that PA is not needed at this time if medication is put through insurance as brand name Xopenex. Called pharmacy and left message notifying them. KAITLYN MONTERO LPN * Telephone Encounter - Kiatlyn Montero LPN - 07/01/2023 1013 EDT PA sent to insurance ([place] Medicaid) for Xopenex inhaler. Will wait for response. KAITLYN MONTERO LPN documented in this encounter Plan of Treatment Upcoming Encounters Date Type Department Care Team (Late st Contact Info) Description 06/29/2024 14:15 EDT Office Visit [facility] Family [facility] [address] [place] [address] Jean Munoz MD [address] [place] [phone] documented as of this encounter Visit Diagnoses Not on filedocumented in this encounter Care Teams Special Events Planner Relationship Specialty Start Date End Date Jean Munoz MD [address] [place] [address] PCP - General 12/31/08 [place] [address] [place] [phone] 04/20/10 Afia Valle MD [address] [place] [address] [address] [place] [address] MD Care Team Radiation Oncology 07/02/21 Jesi Leong, [facility] [address] [place] [phone] Behavioral Health Department Store General ManagerCardiologist Care 10/19/22 01/23/24 documented as of this encounter
--- OUTSIDE RECORDS SUMMARY | 2024-06-10 07:05 | XMS_ITS | Encounter Summary ---
Author Organization [facility] Address [address] [place] [address] Care Team Providers Care Cytopathologist Name Role Phone Jean Munoz MD Primary Care Provider Manny Rizzo MD Unavailable Afia Valle MD Unavailable Jesi Leong Unavailable [phone] Reason for Visit * Reason Onset Date Comments Medication Problem 03/26/2023 Encounter Details Date Type Department Care Team (Late st Contact Info) Description 03/26/[address] [facility] [address] [place] [address] Jean Munoz MD [address] [place] [phone] Medication Problem Social History Tobacco [...] End Da te ondansetron (ZOFRAN) 4 mg tabletIndications:Nause a Take 1 Tablet by mouth every 8 hours as needed for Nausea. 30 Tablet 2 03/29/2023 06/15/2023 promethazine (PHENERGAN) 25 mg tabletIndications:Nause a Take 1 Tablet by mouth every 6 hours as needed for Nausea. 30 Tablet 2 03/29/2023 10/06/2023 methylphenidate HCl (RITALIN;METHYLIN) 10 mg tabletIndications:Prima ry narcolepsy without cataplexy Take 1 Tablet by mouth daily for 28 days. For narcolepsy. Daily Max: 10 mg 28 Tablet 04/24/2023 07/02/2023 methylphenidate HCl (RITALIN;METHYLIN) 20 mg tabletIndications:Prima ry narcolepsy without cataplexy Take 2 Tablets by mouth daily for 28 days. For narcolepsy. Daily Max: 40 mg 56 Tablet 03/27/2023 03/27/2023 methylphenidate HCl (RITALIN;METHYLIN) 10 mg tabletIndications:Prima ry narcolepsy without cataplexy Take 1 Tablet by mouth daily for 28 days. For nacolepsy Daily Max: 10 mg 28 Tablet 03/27/2023 07/02/2023 HYDROcodone-acetaminoph en (NORCO) 7.5-325 mg per tabletIndications:Chron ic pain syndrome,Chronic low back pain,Chronic use of opiate for therapeutic purpose,Pain medication agreement Take 1 Tablet by mouth every 6 hours for 28 days. For chronic pain. Daily Max: 4 Tablets 112 Tablet 03/27/2023 07/02/2023 documented in this encounter Miscellaneous Notes * Telephone Encounter - Jean Munoz MD - 03/29/2023 3982 EDT I called Liset, confirmed that she did fill prescriptions for hydrocodone and methylphenidate on Wednesday. Still does not have Rx for Ritalin 10 mg for April, new prescription sent today. Also needs prescriptions for ondansetron and Phenergan, these have been sent previously but pharmacy is tellingher that they do not have the prescription. I sent new prescriptions for both. She is only using about 4 or 5 of each per month. She has follow-up scheduled in June. Verify the current prescriptions on file should last until then. All prescriptions sent to [facility] in [facility] at her request. * Telephone Encounter - Eliza Dickinson RN - 03/27/2023 1618 EDT Relayed below message to pt that script for [place] and methylphenidate 10 mg tablets have been sent to [facility] in [facility] Pt picked up methylphenidate 20 mg tablets today at [facility] today 03/27/23 Enc to reach out to clinic with any further questions or concerns ELIZA DICKINSON RN 03/27/23 16:21 * Telephone Encounter - Reggie Hampton MD - 03/27/2023 1610 EDT filled * Telephone Encounter - Eliza Dickinson RN - 03/27/2023 1238 EDT Requested Prescriptions Pending Prescriptions Disp Refills ??? methylphenidate HCl (RITALIN;METHYLIN) 10 mg tablet 28 Tablet 0 Sig: Take 1 Tablet by mouth daily. Daily Max: 10 mg Signed Prescriptions Disp Refills ??? HYDROcodone-acetaminophen (NORCO) 7.5-325 mg per tablet 112 Tablet 0 Sig: Take 1 Tablet by mouth every 6 hours for 28 days. For chronic pain. Daily Max: 4 Tablets Authorizing Provider: REGGIE HAMPTON Pharmacy: [facility] Last Refill Date: Last Visit Date: 03/24/23 Tasha Next Non-Acute Visit Date Scheduled with Care Team: Madeline DICKINSON RN 03/27/2023 12:41 Pt last picked up 20 mg methylphenidate 01/30/23 Pt last picked up 10 mg methylphenidate on 01/30/23 Script sent to [facility] on 03/25/23 for 20 mg methylphenidate pharmacy does not have on file Verified with pharmacy that script for [place] sent to [facility] 03/25/23 has been canceled from their system Pt when seen by Dr Munoz 03/24/23 pt had script for methylphenidate 10 mg tablets sent to pharmacy for 05/22/23 start date but no script for March * Telephone Encounter - Reggie Hampton MD - 03/27/2023 1211 EDT Sent in. Please call the other pharmacy to cancel that script so it is not then fillable if stock comes into [facility]. thanks * Telephone Encounter - Rosenda Dyer - 03/27/2023 1205 EDT Reason for Call: Medication Problem Pt called to f/u on request need to arrange transportation for getting rx. Rosenda Dyer 03/27/2023 12:05 * Telephone Encounter - Donis Foss - 03/27/2023 0935 EDT Patient calling for status of her request to have [place] prescription sent to [facility] in [place] for hot die picker today because the [facility] in [place] does not have stock. She also says that her Methylphenidate 10 mg was not sent to the pharmacy either, only her 20 mg was sent. Patient is due today. * Telephone Encounter - Mikey Dotson - 03/26/2023 1635 EDT Patient called to check status of medication refill. Patient asking for a call once prescription has been sent to pharmacy so she will know when to hot die picker. * Telephone Encounter - Fani Dickens RN - 03/26/2023 1337 EDT Images from the original note were not included. VPMS check: Routing to PCP for approval. FANI SPANGLER RN 03/26/2023 13:38 * Telephone Encounter - Radha Henderson - 03/26/2023 1329 EDT Reason for Call: Medication Problem Summary/Symptoms: Called in regards to hydrocodone. Would like it sent to [facility] is [place] as [facility] does not have in stock. Onset and Duration? n/a Appointment Offered? Yes, declined. Would like a call back. Radha Henderson 03/26/2023 13:29 documented in this encounter Plan of Treatment Upcoming Encounters Date Type Department Care Team (Late st Contact Info) Description 06/29/2024 14:15 EDT Office Visit [facility] [address] [place] [address] Jean Munoz MD [address] [place] [phone] documented as of this encounter [...] pain. Daily Max: 4 Tablets Reorder 03/27/2023 03/26/2023 methylphenidate HCl (RITALIN;METHYLIN) 20 mg tabletIndications:Primar y narcolepsy without cataplexy Take 2 Tablets by mouth daily for 28 days. For narcolepsy. Daily Max: 40 mg 03/27/2023 03/27/2023 methylphenidate HCl (RITALIN;METHYLIN) 20 mg tabletIndications:Primar y narcolepsy without cataplexy Take 2 Tablets by mouth daily for 28 days. For narcolepsy. Daily Max: 40 mg 03/27/2023 03/27/2023 HYDROcodone-acetaminophe n (NORCO) 5-325 mg tabletIndications:Chroni c pain syndrome,Chronic use of opiate for therapeutic purpose,Pain medication agreement,Chronic low back pain, unspecified back pain laterality, unspecified whether sciatica present Take 1 Tablet by mouth 4 times daily for 28 days. For chronic pain Daily Max: 4 Tablets 04/28/2021 05/26/2021 HYDROcodone-acetaminophe n (NORCO) 7.5-325 mg per tabletIndications:Chroni c 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 For chronic pain. Daily Max: 4 Tablets 10/10/2022 11/07/2022 methylphenidate HCl (RITALIN;METHYLIN) 20 mg tabletIndications:Primar y narcolepsy without cataplexy Take 2 Tablets by mouth daily for 28 days. For narcolepsy. Daily Max: 40 mg 01/02/2023 03/29/2023 methylphenidate HCl (RITALIN;METHYLIN) 10 mg tabletIndications:Primar y narcolepsy without cataplexy Take 1 Tablet by mouth daily for 28 days. For narcolepsy. Daily Max: 10 mg 01/02/2023 03/29/2023 methylphenidate HCl (RITALIN;METHYLIN) 10 mg tabletIndications:Primar y narcolepsy without cataplexy Take 1 Tablet by mouth daily for 28 days. For narcolepsy. Daily Max: 10 mg 01/30/2023 03/29/2023 ondansetron (ZOFRAN) 4 mg tabletIndications:Nausea TAKE ONE TABLET BY MOUTH DAILY NEEDED for nausea Reorder 10/09/2021 03/29/2023 promethazine (PHENERGAN) 25 mg tabletIndications:Nausea TAKE ONE TABLET BY MOUTH EVERY SIX HOURS NEEDED for nausea Reorder 03/11/2022 03/29/2023 documented as of this encounter Care Teams Cytopathologist Relationship Specialty Start Date End Date Jean Munoz MD [address] [place] [phone] PCP - General 12/31/08 Manny Rizzo MD [address] [place] [phone] 04/20/10 Afia Valle MD [address] [facility], [facility] [address] [place] [phone] Care Team Radiation Oncology 07/02/21 Jesi Leong, [facility] [address] [place] [phone] Behavioral Health Translator/InterpreterBusiness Unit Controller Care 10/19/22 01/23/24 documented as of this encounter
--- OUTSIDE RECORDS SUMMARY | 2024-06-10 07:06 | XMS_ITS | Encounter Summary ---
Author Organization [facility] Address [address] [place] [address] Care Team Providers Care Lead Housekeeper Name Role Phone Jean Munoz MD Primary Care Provider Manny Rizzo MD Unavailable Afia Valle MD Unavailable Mono Leong MULTISKILL OPERATOR Unavailable Reason for Visit * Reason Comments Depression Anxiety Encounter Details Date Type Department Care Team (Late st Contact Info) Description 01/05/2023 13:30 [address] [facility] [address] [place] [address] Mono Leong MULTISKILL OPERATOR [address] [place] [address] Current moderate episode of major [...] 07/30/2022 PHQ-2 Answer Date Recorded PHQ-2 SUBTOTAL 3 01/05/2023 Hunger Vital Sign Answer Date Recorded Within [...] as of this encounter Progress Notes * Mono Leong LICSW - 01/05/2023 1330 EDT TELEMEDICINE VIDEO VISIT Today's visit was provided through telemedicine video conferencing: I have reviewed the appropriateness of using video technology with the patient with regards to today's visit. The location of the patient : Home Patient location state: Visit Location State: [place] The location of the provider: Office Provider location state: Visit Location State: [place] The following people and their roles were present for today's visit: Appointment Provider: Mono Leong LICSW JESSICA DENTON, LICSW PRIMARY CARE MENTAL HEALTH [facility] TREATMENT PLAN Master Treatment Plan Initial Completion Date: 01/06/2023 Review Due Date: 10-12 weeks from 10/19/22 DSM 5 Diagnosis: (F32.1) Current moderate episode of major depressive disorder, unspecified whetherrecurrent (HCC) (primary encounter diagnosis) (F41.9) Anxiety Recommendation(s) & Plan: To achieve the treatment goals, Liset Viera will: 1) Start Behavioral Health intervention 1. Type of service(s): individual 2. Frequency of service: every other week 3. Length of service: 30 minutes 4. Duration of service (expected): 12 sessions 2) Goals of therapy in patient's own words: 1. Feeling less anxious about my situation 2. Feel better about what is going to happen 3) Objectives of therapy will be met by: 1. developing/improving strategies/coping skills and improving structure and support through Behavioral Activation/CBT and Cognitive Restructuring/CBT intervention(s) 2. exploring/processing grief and loss and coping with stress through Cognitive Restructuring/CBT, Skills Practice and Psychoeducation intervention(s) 4) Adjust treatment plan as necessary. Collaborative Care requires a change in treatment every 10-12 weeks if patient has not had at least a 50% improvement using a validated measure, such as PHQ-9(A), HEYDI-7 and/or PSC-17. 5) Indicators of progress and goal attainment: patient report and ongoing monitoring of validated testing measures. 6) Patient and care team will collaboratively plan for discontinuation/transfer of services based on qualitative and quantitative review of progress. 7) Coordinate care with physician and psychiatric applications consultant as needed. MONO LEONG, [facility] 01/06/23 13:05 Primary Care Mental Health Integration Behavioral Health Barrel Cap Setter Follow-up Collaborative Care / Psychotherapy Note Date of Service: 01/06/2023 Time of Service: 130pm Total Time: 38 minutes Collaborative Care Time Spent: 8 Psychotherapy Time Spent: 30 Psychotherapy Procedure Code: 33193 16-37mins individual f/u Chief Complaint/Reason for Visit Chief Complaint Patient presents with ??? Depression ??? Anxiety Rationale for This Session Cognitive Behavior Therapy and Behavioral Activation is indicated to treat anxiety and depression and has been empirically documented to be effective in the treatment of this patient's condition. Rationale for Frequency and Duration of Services Consistent with medical necessity and treatment modality Information obtained from: patient interview Subjective Liset reports feeling stuck, states it has been challenging living in the hotel. She reports at times it feels like a [facility] cell. Liset desires to get out of this rut. She states she's experienced some irritability. She notes the shift may in part be because her cyber intel planner / friend who is living with her has found employment and she's alone again for the majority of the day in their room. Liset states she has found cooking to be an enjoyable activity, but not enough. She reports related to sleep, sometimes can't fall asleep and other times, cannot wake up. She states she finds herself passing the day, watching tv, playing on table. Further, Liset indicates feeling anxious sharing she'd been extended until the end of February for her hotel voucher via the local IPV agency, she has not been assigned a gaming manager. We phoned the agency together, got the answering service and left message. Liset reports that is what keeps happening to her, no one is returning calls; she expresses feeling a sense of defeat. Objective Mental Status Examination Appearance: casually dressed, well groomed, and appears WNL. Behavior: readily engaged in discussion Alertness: alert Speech: speech is of normal rate, tone, and spontaneity, use of language is is normal. Orientation: to person, place, time and situation Mood: depressed Affect: congruent with reported mood Thought Process: organized and future oriented. Memory: intact Judgment:fair Validated Behavioral Health Measures Risk Totals: MFQ, PHQ-9A, PHQ-2/PHQ-9, and HEYDI-7 04/17/2018 11/10/2018 04/24/2021 12/24/2021 10/19/2022 11/24/2022 01/05/2023 PHQ-2 1 2 2 6 5 3 3 PHQ-9 - - - 26 17 9 16 PHQ-9 Interpretation - - - Severe Depression Moderately Severe Depression Mild Depression Moderately Severe Depression HEYDI-2 - - - 6 6 3 5 HEYDI-7 - - - 21 20 13 17 HEYDI-7 Interpretation - - - Severe Anxiety Severe Anxiety Moderate Anxiety Severe Anxiety Current Medications Current Outpatient Medications Medication Sig Dispense Refill ??? azithromycin (ZITHROMAX) 250 mg tablet Take 2 tablets (500 mg) on day 1, followed by 1 tablet (250 mg) once daily on days 2 through 5. 6 Tablet 0 ??? busPIRone (BUSPAR) 15 mg tablet Take 1 Tablet by mouth 3 times daily. 270 Tablet 3 ??? Ciclesonide 50 mcg spray,non-aerosol 1 spray each nostril daily (Patient not taking: No sig reported) 37.5 g 5 ??? cycloSPORINE (RESTASIS) 0.05 [...] DAY for allergies 90 Tablet 4 ??? fluticasone propion-salmeteroL (ADVAIR HFA) 230-21 mcg/actuation inhaler INHALE TWO PUFFS BY MOUTH TWICE DAILY as directed 16 g 5 ??? HYDROcodone-acetaminophen (NORCO) 7.5-325 mg per tablet Take 1 Tablet by mouth every 6 hours for 28 days. For chronic pain. Daily Max: 4 Tablets 112 Tablet 0 ??? [START ON 02/27/2023] HYDROcodone-acetaminophen (NORCO) 7.5-325 mg per tablet Take 1 Tablet by mouth every 6 hours for 28 days. For chronic pain. Daily Max: 4 Tablets 112 Tablet 0 ??? [START ON 01/30/2023] HYDROcodone-acetaminophen (NORCO) 7.5-325 mg per tablet Take [...] bedtime. 180 Tablet 1 ??? [START ON 02/27/2023] methylphenidate HCl (RITALIN;METHYLIN) 20 mg tablet Take 2 Tablets by mouth daily for 28 days. For narcolepsy. Daily Max: 40 mg 56 Tablet 0 ??? [START ON 01/30/2023] methylphenidate HCl (RITALIN;METHYLIN) 20 mg tablet Take 2 Tablets by mouth daily for 28 days. For narcolepsy. Daily Max: 40 mg 56 Tablet 0 ??? methylphenidate HCl (RITALIN;METHYLIN) 20 mg tablet Take 2 Tablets by mouth daily for 28 days. For narcolepsy. Daily Max: 40 mg 56 Tablet 0 ??? [START ON 02/27/2023] methylphenidate HCl (RITALIN;METHYLIN) 10 mg tablet Take 1 Tablet by mouthdaily for 28 days. For narcolepsy. Daily Max: 10 mg 28 Tablet 0 ??? [START ON 01/30/2023] methylphenidate HCl (RITALIN;METHYLIN) 10 mg tablet Take [...] NIGHTLY AT BEDTIME 90 Tablet 3 ??? SPIRIVA RESPIMAT 1.25 mcg/actuation inhaler INHALE TWO PUFFS BY MOUTH DAILY DIRECTED 12 g 3 ??? SUMAtriptan (IMITREX) 100 mg tablet TAKE 1 TABLET BY MOUTH ONCE NEEDED FOR UP TO 1 DOSE FOR MIGRAINE. 9 Tablet 3 ??? tamsulosin (FLOMAX) 0.4 mg capsule Take 1 Cap by mouth daily. (Patient not taking: No sig reported) 90 Cap 3 ??? zolpidem (AMBIEN) 5 mg tablet Take 1 Tablet by mouth at bedtime. Daily Max: 5 mg 28 Tablet 5 No current facility-administered medications for this visit. Psychopharmacology: Compliance:compliant all of the time Effectiveness: No feels Buspar has never helped; would like more support for anxiety symptoms. Basically like taking nothing. Side Effects:No Assessment (include DSM V diagnosis, progress since last session, and decision making regarding treatment plan) Liset is a 62 y.o. female experiencing moderate major depressive disorder and anxiety without current or recent suicidal ideation, plan or intent. Liset remains living in local [facility] as supported via local [employer]. Liset reflects on her friend's employment and now alone most of the day. Liset benefited from the human connection in her daily experience. We discussed and focused on Behavioral Activation today. Liset agrees to go explore the [facility] before our next visit. She can take the public bus there. We also discussed pacing herself related todepressive symptoms as barrier to getting out of her room. Liset has one friend who has a vehicle that comes to see her about once per month, otherwise, her social interaction is limited. Mailed Liset calendar / newsletter for [facility] and also suggested she check out the [employer] while there (they offer many free community events too). Assisted Liset with a call to [employer], had to leave a message with answering service. Encouraged Liset to continue to reach out as her mental health will improve when she has less uncertainty related to future housing. Liset requests continue engagement with PCMHI model to address mood and anxiety. Stage of Change: Action Recommendations and Plan 1. Recommended Level of Care: Brief Intervention 2. Continue current treatment plan 3. Follow up is scheduled for January 19, 2023 at 3:30pm via [facility] Zoom. 4. Complete Skills Practice: Behavioral Activation - engage in one community activity ([employer] / eDabba) per week over the next two weeks. 5. Care Management Needs: Continue to call Steps request Housing Audio Production Manager. 6. Continue current pharmacotherapy as applicable. ??? Expectations of Next Session: Continue current treatment plan ??? Anticipated Length of Treatment:8 additional every other week sessions ??? Anticipated Duration of Sessions: 30 minutes FADUMO PINEDA 01/06/2023 13:05 documented in this encounter Plan of Treatment Upcoming Encounters Date Type Department Care Team (Late st Contact Info) Description 06/29/2024 14:15 EDT Office Visit [facility] [address] [place], [place] [phone] Jean Munoz MD [address] [place] [address] documented as of this encounter Visit Diagnoses Diagnosis Current moderate episode of major depressive disorder, unspecified whether recurrent ([facility])- Primary Anxiety Anxiety state, unspecified Screening for osteoporosis- Primary Special screening for osteoporosis Primary narcolepsy without cataplexy Chronic pain syndrome Chronic low back pain Lumbago Chronic use of opiate for therapeutic purpose Pain medication agreement Encounter for long-term (current) use of other medications Screen for colon cancer Special screening for malignant neoplasms, colon documented in this encounter Care Teams Lead Housekeeper Relationship Specialty Start Date End Date Jean Munoz MD [address] [place] [phone] PCP - General 12/31/08 Manny Rizzo MD [address] [place] [phone] 04/20/10 Afia Valle MD [address] [place] [address] [address] [place] [phone] Care Team Radiation Oncology 07/02/21 Mono Leong, [facility] [address] [place] [phone] Behavioral Health Barrel Cap SetterSenior Client Advisor Care 10/19/22 01/23/24 documented as of this encounter
--- OUTSIDE RECORDS SUMMARY | 2024-06-10 07:06 | XMS_ITS | Encounter Summary ---
Author Organization Health system Address [address] [place] [address] Care Team Providers Care Prize Fighter Name Role Phone Jean Munoz MD Primary Care Provider Manny Rizzo MD Unavailable Afia Valle MD Unavailable [phone] Jesi Leong Unavailable [phone] Reason for Visit * Reason Onset Date Comments Pharmacy 01/30/2023 Encounter Details Date Type Department Care Team (Late st Contact Info) Description 01/30/2023 Telephone [facility] Primary Care [facility] - [address] [address] Jean Munoz MD [address] [place] [phone] Pharmacy Social History Tobacco Use Types Packs/Day [...] pain. Daily Max: 4 Tablets 112 Tablet 01/30/2023 02/22/2023 documented in this encounter Miscellaneous Notes * Telephone Encounter - Destini Morse RN - 01/31/2023 0909 EDT Left message on pharmacy's prescriber line to cancel script at [facility]. Called pt and let her know script has been sent to [facility]. She will pick that up today. * Telephone Encounter - Boyd Bruce MD - 01/30/2023 1658 EDT Signed script. Please notify patient and cancel script at [facility]. thanks * Telephone Encounter - Destini Morse RN - 01/30/2023 1651 EDT Pt requests script is sent to [facility] in [place]. Script pended, routed to POD. * Telephone Encounter - Florina Pillai - 01/30/2023 1548 EDT Reason for Call: Pharmacy Summary/Symptoms: Pt is calling today because cannot strip picker Hydrocodone at [facility] because theyare out of stock, can this be sent to [facility] Onset and Duration? 01/30/2023 Appointment Offered? No Florina Pillai 01/30/2023 15:49 documented in this encounter Plan of Treatment Upcoming Encounters Date Type Department Care Team ([facility] st Contact Info) Description 06/29/2024 14:15 EDT Office Visit [facility] [address] [place] [address] Jean Munoz MD [address] [place] [phone] documented as of this encounter Visit Diagnoses Diagnosis Chronic pain syndrome Chronic use of opiate [...] pain. Daily Max: 4 Tablets Reorder 01/30/2023 01/30/2023 documented as of this encounter Care Teams Prize Fighter Relationship Specialty Start Date End Date Jean Munoz MD [address] [place] [phone] PCP - General 12/31/08 Manny Rizzo MD [address] [place] [phone] 04/20/10 Afia Valle MD [address] [place] [address] [address] [place] [phone] MD Care Team Radiation Oncology 07/02/21 Jesi Leong, [facility] [address] [place] [phone] Behavioral Health Application Integration EngineerLitigation Associate Care 10/19/22 01/23/24 documented as of this encounter
--- OUTSIDE RECORDS SUMMARY | 2024-06-10 07:06 | XMS_ITS | Encounter Summary ---
Author Organization [facility] Address [address] [place] [address] Care Team Providers Care Credit Manager Name Role Phone Jean Munoz MD Primary Care Provider Manny Rizzo MD Unavailable Afia Valle MD Unavailable Jesi Leong Unavailable Reason for Visit * Reason Onset Date Comments Medication Management 02/17/2023 Encounter Details Date Type Department Care Team (Late st Contact Info) Description 02/17/2023 Telephone [facility] [address] [place] [address] Jean Munoz MD [address] [place] [phone] Medication Management Social History Tobacco [...] narcolepsy. Daily Max: 40 mg 56 Tablet 02/27/2023 02/22/2023 methylphenidate HCl (RITALIN;METHYLIN) 10 mg tabletIndications:Primar y narcolepsy without cataplexy Take 1 Tablet by mouth daily for 28 days. For narcolepsy. Daily Max: 10 mg 28 Tablet 02/27/2023 02/22/2023 HYDROcodone-acetaminophe n (NORCO) 7.5-325 mg per tabletIndications:Chroni c 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 For chronic pain. Daily Max: 4 Tablets 112 Tablet 02/27/2023 02/22/2023 documented in this encounter Miscellaneous Notes * Telephone Encounter - Caroline Hsieh RN - 02/17/2023 1537 EDT [facility] CAROLINE DELGADILLO RN 02/17/2023 15:37 * Telephone Encounter - Jean Munoz MD - 02/17/2023 1522 EDT Rx sent, thanks. * Telephone Encounter - Caroline Hsieh RN - 02/17/2023 1517 EDT Images from the original note were not included. Last refills 01/30 and 01/31 CAROLINE DELGADILLO RN 02/17/2023 15:18 * Telephone Encounter - Miriam Nata - 02/17/2023 4932 EDT Patient has moved to [place]. Asking for Methylphenidate 20 & 10 mg and Hydrocodone to be transferred to [facility]. Scheduled a quick med check with PCP's next avl In March. Patient doesn't have a ride and asking if [facility] or any other options avl for her? Or she may change the visitto phone call. documented in this encounter Plan of Treatment Upcoming Encounters Date Type Department Care Team (Late st Contact Info) Description 06/29/2024 14:15 EDT Office Visit [facility] [address] [place] [address] Jean Munoz MD [address] [place] [address] documented as of this encounter Visit Diagnoses Diagnosis Chronic pain syndrome Chronic use of opiate for therapeutic purpose Pain medication agreement Encounter for long-term (current) use of other medications Primary narcolepsy without cataplexy Screening for osteoporosis- Primary Special screening for [...] narcolepsy. Daily Max: 40 mg Reorder 02/27/2023 02/17/2023 methylphenidate HCl (RITALIN;METHYLIN) 10 mg tabletIndications:Primar y narcolepsy without cataplexy Take 1 Tablet by mouth daily for 28 days. For narcolepsy. Daily Max: 10 mg Reorder 02/27/2023 02/17/2023 HYDROcodone-acetaminophe n (NORCO) 7.5-325 mg per tabletIndications:Chroni c 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 For chronic pain. Daily Max: 4 Tablets Reorder 02/27/2023 02/17/2023 documented as of this encounter Care Teams Credit Manager Relationship Specialty Start Date End Date Jean Munoz MD [address] [place] [phone] PCP - General 12/31/08 Manny Rizzo MD [address] [place] [phone] 04/20/10 Afia Valle MD [address] [place] [address] 2 [place] [phone] Care Team Radiation Oncology 07/02/21 Jesi Leong [facility] [address] [place] [phone] Behavioral Health Window Shade EstimatorMemorial Adviser Care 10/19/22 01/23/24 documented as of this encounter
--- OUTSIDE RECORDS SUMMARY | 2024-06-10 07:06 | XMS_ITS | Encounter Summary ---
Author Organization [facility] Address [address] [place] [address] Care Team Providers Care Autocad Detailer Name Role Phone Jean Munoz MD Primary Care Provider Manny Rizzo MD Unavailable Afia Valle MD Unavailable Jesi Leong Unavailable Encounter Details Date Type Department Care Team (Latest Contact Info) Description 11/14/2022 Travel Social History Tobacco Use Types Packs/Day Years [...] PHQ-2 Answer Date Recorded PHQ-2 SUBTOTAL 5 10/19/2022 Hunger Vital Sign Answer Date Recorded Within [...] 16:07 EST Sexual Orientation Not on file COVID-19 Exposure Response Date Recorded In the last 10 days, have yo u been in contact with someone who was confirmed or suspected to have Coronavirus/COVID-19? No / Unsure 11/14/2022 17:54 EST documented as of this encounter Functional Status [...] [facility] [address] [place], [place] [phone] Jean Munoz MD [address] [place] [phone] documented as of this encounter Visit Diagnoses Not on filedocumented in this encounter Additional Health Concerns Infection Onset Date Last Indicated Resolved Time R/O COVID-19 11/14/2022 11/14/2022 11/14/2022 19:1 6 EST documented as of this encounter Care Teams Autocad Detailer Relationship Specialty Start Date End Date Jean Munoz MD [address] [place] [phone] PCP - General 12/31/08 Manny Rizzo MD [address] [place] [phone] 04/20/10 Afia Valle MD [address] [place] [address] [address] [place] [phone] Care Team Radiation Oncology 07/02/21 Jesi Leong, [facility] [address] [place] [phone] Behavioral Health Signals Intelligence Analysis ManagerTube Dispatcher Care 10/19/22 01/23/24 documented as of this encounter
--- OUTSIDE RECORDS SUMMARY | 2024-06-10 07:06 | XMS_ITS | Encounter Summary ---
Author Organization [facility] Address [address] [place] [address] Care Team Providers Care Bricklayer Apprentice Name Role Phone Jean Munoz MD Primary Care Provider Manny Rizzo MD Unavailable Afia Valle MD Unavailable Jesi Leong Unavailable Reason for Visit * Reason Comments Chronic Pain Encounter Details Date Type Department Care Team (Late st Contact Info) Description 12/15/2022 16:30 EDT Telemedicine [facility] [address] [place] [address] Jean Munoz MD [address] [place] [phone] Chronic pain syndrome (Primary Dx); Chronic use of opiate for therapeutic purpose; Pain medication agreement; Primary narcolepsy without cataplexy; COPD exacerbation ([facility]) Social History Tobacco Use Types Packs/Day Years [...] PHQ-2 Answer Date Recorded PHQ-2 SUBTOTAL 3 11/24/2022 Hunger Vital Sign Answer Date Recorded Within [...] Dispensed Refills Start Date End Da te azithromycin (ZITHROMAX) 250 mg tabletIndications:COPD exacerbation (HCC-CMS) Take 2 tablets (500 mg) on day 1, followed by 1 tablet (250 mg) once daily on days 2 through 5. 6 Tablet 12/15/2022 01/27/2023 predniSONE (DELTASONE) 20 mg tabletIndications:COPD exacerbation (HCC-CMS) Take 2 Tablets by mouth daily for 5 days. 10 Tablet 12/15/2022 12/20/2022 HYDROcodone-acetaminoph en (NORCO) 7.5-325 mg per tablet Take 1 Tablet by mouth every 6 hours for 28 days. For chronic pain. Daily Max: 4 Tablets 112 Tablet 01/02/2023 01/04/2023 HYDROcodone-acetaminoph en (NORCO) 7.5-325 mg per tabletIndications:Chron ic 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 For chronic pain. Daily Max: 4 Tablets 112 Tablet 01/30/2023 01/30/2023 HYDROcodone-acetaminoph en (NORCO) 7.5-325 mg per tabletIndications:Chron ic 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 For chronic pain. Daily Max: 4 Tablets 112 Tablet 02/27/2023 02/17/2023 methylphenidate HCl (RITALIN;METHYLIN) 10 mg tabletIndications:Prima ry narcolepsy without cataplexy Take 1 Tablet by mouth daily for 28 days. For narcolepsy. Daily Max: 10 mg 28 Tablet 01/02/2023 03/29/2023 methylphenidate HCl (RITALIN;METHYLIN) 10 mg tabletIndications:Prima ry narcolepsy without cataplexy Take 1 Tablet by mouth daily for 28 days. For narcolepsy. Daily Max: 10 mg 28 Tablet 01/30/2023 03/29/2023 methylphenidate HCl (RITALIN;METHYLIN) 10 mg tabletIndications:Prima ry narcolepsy without cataplexy Take 1 Tablet by mouth daily for 28 days. For narcolepsy. Daily Max: 10 mg 28 Tablet 02/27/2023 02/17/2023 methylphenidate HCl (RITALIN;METHYLIN) 20 mg tabletIndications:Prima ry narcolepsy without cataplexy Take 2 Tablets by mouth daily for 28 days. For narcolepsy. Daily Max: 40 mg 56 Tablet 01/02/2023 03/29/2023 methylphenidate HCl (RITALIN;METHYLIN) 20 mg tabletIndications:Prima ry narcolepsy without cataplexy Take 2 Tablets by mouth daily for 28 days. For narcolepsy. Daily Max: 40 mg 56 Tablet 01/30/2023 02/22/2023 methylphenidate HCl (RITALIN;METHYLIN) 20 mg tabletIndications:Prima ry narcolepsy without cataplexy Take 2 Tablets by mouth daily for 28 days. For narcolepsy. Daily Max: 40 mg 56 Tablet 02/27/2023 02/17/2023 documented in this encounter Progress Notes * Kaitlyn Montero LPN - 12/15/2022 1630 EDT The concept of ???Telemedicine?? has been [...] for this service. KAITLYN MONTERO LPN * Kaitlyn Montero LPN - 12/15/2022 1630 EDT The [place] [employer] System query has been completed. Methylphenidate 10 mg: Filled: 12/05/22 Quantity: 28 tabs for 28 days Hydrocodone-Acetaminophen 7.5-325 mg: Filled: 12/05/22 Quantity: 112 tabs for 28 days Methylphenidate 20 mg: Filled: 12/05/22 Quantity: 56 tabs for 28 days Zolpidem 5 mg: Filled: 12/04/22 Quantity: 28 tabs for 28 days Pregabalin 300 mg: Filled: 11/12/22 Quantity: 180 tabs for 90 days KAITLYN MONTERO LPN * Jean Munoz MD - 12/15/2022 1630 EDT Primary Care Video Visit Assessment & Plan Diagnoses and all orders for this visit: Chronic pain syndrome Chronic use of opiate for therapeutic purpose Pain medication agreement - HYDROcodone-acetaminophen (NORCO) 7.5-325 mg per tablet - HYDROcodone-acetaminophen (NORCO) 7.5-325 mg per tablet - HYDROcodone-acetaminophen (NORCO) 7.5-325 mg per tablet Seems stable. Will renew pain medication. Primary narcolepsy without cataplexy - methylphenidate HCl (RITALIN;METHYLIN) 20 mg tablet - methylphenidate HCl (RITALIN;METHYLIN) 20 mg tablet - methylphenidate HCl (RITALIN;METHYLIN) 20 mg tablet - methylphenidate HCl (RITALIN;METHYLIN) 10 mg tablet - methylphenidate HCl (RITALIN;METHYLIN) 10 mg tablet - methylphenidate HCl (RITALIN;METHYLIN) 10 mg tablet Stable on Ritalin, prescriptions renewed. COPD exacerbation ([facility]) Suspect COPD exacerbation. Will treat with prednisone and Z-Narendra. Continue current inhalers including Advair, Spiriva, lev albuterol. Follow-up per radiation oncology and pulmonology. Return in about 12 weeks (around 03/09/2023) for PE in person. Patient education was direct. Barriers were assessed and addressed as needed. I spent a total of 30 minutes on the date of this encounter meeting with the patient and reviewing documentation/coordinating care as described in the above note. Unless otherwise noted, no procedures were performed at the time of the visit. Kalie Hutchins is a 61 y.o. female presenting with Chronic Pain HPI Liset is a 61-year-old female scheduled for follow-up video visit for chronic pain and medication management for narcolepsy. She is currently living in a hotel on [facility]. Looking for an apartment in either [facility] or [place] [address]. Has lung cancer and has follow-up CT scan pending in January as well as follow-up with radiation oncology and with pulmonology this spring. Breathing has been stable but is variable with weather. No chest pain recently. Does have a chronic cough. Had a cold this winter but has been worse in the last couple of weeks. Was seen in ED earlier in November for left upper quadrant pain, CT with soft tissue edema no fluid collection possible splenic hemangioma, no inte rvention per surgical consult. Still has cough that is sometimes productive of clear sputum. No hemoptysis. No recent steroids or antibiotics. Did have Z-Narendra in May with good results. Data reviewed this visit: problem list/past medical history, current medications, allergies, socialhistory, last visit note, recent imaging, recent specialist documentation and recent Emergency Department visit record ROS - See HPI TELEMEDICINE VIDEO VISIT Today's visit was provided through telemedicine video conferencing: The location of the patient : Home The location of the provider: Clinic Exam Room The following staff and their role did participate in today's encounter visit: Jean Munoz MD Objective LMP 01/11/1987 Physical Exam on video she is alert, no distress. No obvious cyanosis, tachypnea, increased work ofbreathing or audible wheezing. documented in this encounter Plan of Treatment Upcoming Encounters Date Type Department Care Team (Late st Contact Info) Description 06/29/2024 14:15 EDT Office Visit [facility] [address] [place], [place] [id number] Jean Munoz MD [address] [place] [phone] documented as of this encounter Visit Diagnoses Diagnosis Chronic pain syndrome- Primary Chronic use of opiate for therapeutic purpose Pain medication agreement Encounter for long-term (current) use of other medications Primary narcolepsy without cataplexy COPD exacerbation ([facility]) Obstructive chronic bronchitis with exacerbation Screening for osteoporosis- Primary Special screening for [...] For narcolepsy. Daily Max: 40 mg Reorder 12/05/2022 11/24/2022 methylphenidate HCl (RITALIN;METHYLIN) 20 mg tabletIndications:Primar y narcolepsy without cataplexy Take 2 Tablets by mouth daily for 28 days. For narcolepsy. Daily Max: 40 mg Reorder 11/07/2022 11/24/2022 methylphenidate HCl (RITALIN;METHYLIN) 20 mg tabletIndications:Primar y narcolepsy without cataplexy Take 2 Tablets by mouth daily for 28 days. For narcolepsy. Daily Max: 40 mg Reorder 10/10/2022 11/24/2022 methylphenidate HCl (RITALIN;METHYLIN) 10 mg tabletIndications:Primar y narcolepsy without cataplexy Take 1 Tablet by mouth daily for 28 days. For narcolepsy. Daily Max: 10 mg Reorder 12/05/2022 11/24/2022 methylphenidate HCl (RITALIN;METHYLIN) 10 mg tabletIndications:Primar y narcolepsy without cataplexy Take 1 Tablet by mouth daily for 28 days. For narcolepsy. Daily Max: 10 mg Reorder 11/07/2022 11/24/2022 methylphenidate HCl (RITALIN;METHYLIN) 10 mg tabletIndications:Primar y narcolepsy without cataplexy Take 1 Tablet by mouth daily for 28 days. For narcolepsy. Daily Max: 10 mg Reorder 10/10/2022 11/24/2022 HYDROcodone-acetaminophe n (NORCO) 7.5-325 mg per tabletIndications:Chroni c pain syndrome,Chronic use of opiate for therapeutic purpose,Pain medication agreement Take 1 Tablet by mouth every 6 hours as needed for up to 28 days for Pain. For chronic pain. Daily Max: 4 Tablets Reorder 12/05/2022 12/15/2022 HYDROcodone-acetaminophe n (NORCO) 7.5-325 mg per tabletIndications:Chroni c pain syndrome,Chronic use of opiate for therapeutic purpose,Pain medication agreement Take 1 Tablet by mouth every 6 hours as needed for up to 28 days for Pain. For chronic pain. Daily Max: 4 Tablets Reorder 11/07/2022 12/15/2022 documented as of this encounter Care Teams Bricklayer Apprentice Relationship Specialty Start Date End Date Jean Munoz MD [address] [place] [phone] PCP - General 12/31/08 Manny Rizzo MD [address] [place] [phone] 04/20/10 Afia Valle MD [address] [place] [address], [facility] [address] [place] [phone] Care Team Radiation Oncology 07/02/21 Jesi Leong, [facility] [address] [place] [phone] Behavioral Health Continuity ReaderTemplate Clerk Care 10/19/22 01/23/24 documented as of this encounter
--- OUTSIDE RECORDS SUMMARY | 2024-06-10 07:06 | XMS_ITS | Encounter Summary ---
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 of bruising around the mass this morning tender to touch. Patient denies any injury or trauma to the area. Patient states they have never experienced something like this before. Otherwise: (-) fever, (-) chills, (-) nausea, (-) vomiting, (+) cough, nonproductive 1 week, (-) hemoptysis, (-) diarrhea, (-) melena, (-) hematochezia, (-) constipation, (+) flatus, (-) dysuria, (-) urinary urgency, (- ) urinary frequency, (-) chest pain, (-) shortness of breath, (-) back pain. Patient has not had anything to eat today. Denies anticoagulation. Labs reviewed. UA shows 2+ blood. CMP unremarkable. CBC unremarkable. Lipase unremarkable. Chest x-ray as interpreted by radiologist: No evidence of pneumonia. History was provided by: Patient Patient's pertinent PMH, FH, SH were reviewed and edited as necessary. Nursing notes reviewed. A medical screening exam was performed. Physical Exam BP (!) 134/93 Pulse 85 Temp 36.3 ??C (97.3 ??F) (Oral) Resp 16 Ht 162.6 cm (64) Wt 68 kg(150 lb) LMP 01/11/1987 SpO2 96% BMI 25.75 kg/m?? Physical Exam Vitals and nursing note reviewed. Constitutional: Appearance: Normal appearance. Not ill-appearing or toxic-appearing. Heart sounds: No murmurs, rubs, gallops. Pulmonary: Effort is normal. Breath sounds: Wheezing noted throughout lung lobes. Abdominal: Abdominal tenderness to left upper quadrant where there is a hard palpable mass in surrounding ecchymosis. See picture below. Bowel sounds active. No guarding, rebound tenderness, palpable masses. NoCVA tenderness. Skin: General: Skin is warm and dry. Procedures Procedures Associated attestation - Jasmin Escobedo MD - 11/17/2022 1044 EST I, Jasmin Escobedo MD, reviewed this case with the Advanced Practice Provider (RICKEY) and have reviewed the RICKEY's note. I evaluated this patient [id number] and provided a substantive portion of the patient's care. My personal evaluation included a face to face history and physical exam, review of nursing notes, review of vital signs, review of relevant records, and review of diagnostic data. Based on these elements I formulated, and/or participated substantively in the medical decision making,including assessing the level of risk of the patient's complaints and condition, establishing a diagnosis and/or selecting management options. My personal documentation is as follows: Liset Menendez has a palpable, freely mobile, subcutaneous nodular area in her left upper quadrant with surrounding, what appears to be be sub-acute ecchymosis and mild tenderness. CT was negative for intra-abdominal process. Final diagnoses: Left upper quadrant abdominal pain Left upper quadrant abdominal mass documented in this encounter Plan of Treatment Upcoming Encounters Date Type Department Care Team (Late st Contact Info) Description 06/29/2024 14:15 EDT Office Visit [facility] [place] [address] [place] [address] Jean Munoz MD [address] [place] [address] documented as of this encounter Procedures Procedure Name Priority Date/Time Associated Diagnosis Comments CT ABDOMEN PELVIS W CONTRAST STAT 11/14/2022 19:22 EST POCT URINE DIPSTICK, CLINITEK STAT 11/14/2022 18:40 EST POCT CSN BARCODE URINE DIPSTICK STAT 11/14/2022 18:38 EST POCT URINE CLINITEK (DIPSTICK) - DOES NOT REFLEX STAT 11/14/2022 18:38 EST LIPASE STAT 11/14/2022 18:38 EST COMPREHENSIVE METABOLIC PANEL (CMP) STAT 11/14/2022 18:38 EST COMPLETE BLOOD COUNT AND DIFFERENTIAL STAT 11/14/2022 18:37 EST XR CHEST PORTABLE 1 VIEW STAT 11/14/2022 18:26 EST ZZCOVID-19 TEST [facility] LAB PCR STAT 11/14/2022 17:56 EST COVID-19 TESTING STAT 11/14/2022 17:5 6 EST ZZHN INFLUENZA A AND B, RSV PCR STAT 11/14/2022 17:56 EST documented in this encounter Results * CT ABDOMEN PELVIS W CONTRAST (11/14/2022 19:22 EST) Anatomical Region Laterality Modality Body, Abdomen, Pelvis, Abdomen and Pelvis Computed Tomography 11/15/2022 7:37 EST Impressions 11/15/2022 7:37 EST 1. ??Soft tissue edema within the left upper quadrant abdominal wall that corresponds to reported bruising. No fluid collection. 2. ??Small splenic mass slowly enlarged since 2007. Considerations including a hemangioma. 3. ??Small hiatal hernia status post Aspen fundoplication. I have personally reviewed the images and the above interpretation and agree with the findings. Narrative 11/15/2022 7:[address] ABDOMEN PELVIS W CONTRAST ??11/14/2022 7:05 PM Signs and Symptoms/Comments: ?? Palpable mass with surrounding bruising and tenderness to LUQ; LUQ abdominal pain; Technique: CT of the abdomen and pelvis was performed following the administration intravenous contrast; coronal and sagittal multiplanar reconstructions generated. Comparison: CT abdomen pelvis 08/15/2008 Findings: Lower chest: Lung bases are clear. Hepatobiliary: Liver enhances normally. No focal hepatic lesion. Gallbladder is within normal limits. Mild intrahepatic ductal dilatation in the right lobe, not significantly changed compared to 08/15/2008. Spleen, pancreas, adrenal glands: There is a fairly lobulated hypoechoic density in the posterior spleen, approximately 1.8 cm in long axis, previously measuring 5 mm onj 08/15/2008. Pancreas and adrenal glands are unremarkable. Kidneys, ureters, bladder: Kidneys enhance symmetrically. No concerning renal lesions. No hydroureteronephrosis. The urinary bladder is unremarkable. Uterus, ovaries: Patient is status post hysterectomy. No adnexal mass Bowel: Small hiatal hernia status post Aspen fundoplication. No acute inflammatory changes or evidence of bowel obstruction. Peritoneal cavity / Subperitoneal space: No free air or free fluid. Lymphovascular: No lymphadenopathy. Atherosclerotic calcifications throughout the abdominal aorta and major branches Abdominal wall: There is soft tissue edema within the left upper quadrant, just inferior to the costal junction. No fluid collection. No bowel containing hernia. Musculoskeletal: No concerning osseous lesion. Dyed Yarn Operator: No additional findings Procedure Note Stewart Paz MD - 11/15/2022 CT ABDOMEN PELVIS W CONTRAST 11/14/2022 7:05 PM Signs and Symptoms/Comments: Palpable mass with surrounding bruising and tenderness to LUQ; LUQabdominal pain; Technique: CT of the abdomen and pelvis was performed following the administrationintravenous contrast; coronal and sagittal multiplanar reconstructionsgenerated. Comparison: CT abdomen pelvis 08/15/2008 Findings: Lower chest: Lung bases are clear. Hepatobiliary: Liver enhances normally. No focal hepatic lesion.Gallbladder is within normal limits. Mild intrahepatic ductal dilatationin the right lobe, not significantly changed compared to 08/15/2008. Spleen, pancreas, adrenal glands: There is a fairly lobulated hypoechoicdensity in the posterior spleen, approximately 1.8 cm in long axis,previously measuring 5 mm onj 08/15/2008. Pancreas and adrenal glands areunremarkable. Kidneys, ureters, bladder: Kidneys enhance symmetrically. No concerningrenal lesions. No hydroureteronephrosis. The urinary bladder isunremarkable. Uterus, ovaries: Patient is status post hysterectomy. No adnexal mass Bowel: Small hiatal hernia status post Aspen fundoplication. No acuteinflammatory changes or evidence of bowel obstruction. Peritoneal cavity / Subperitoneal space: No free air or free fluid. Lymphovascular: No lymphadenopathy. Atherosclerotic calcificationsthroughout the abdominal aorta and major branches Abdominal wall: There is soft tissue edema within the left upper quadrant,just inferior to the costal junction. No fluid collection. No bowelcontaining hernia. Musculoskeletal: No concerning osseous lesion. Dyed Yarn Operator: No additional findings IMPRESSION 1. Soft tissue edema within the left upper quadrant abdominal wall thatcorresponds to reported bruising. No fluid collection. 2. Small splenic mass slowly enlarged since 2007. Considerationsincluding a hemangioma. 3. Small hiatal hernia status post Aspen fundoplication. I have personally reviewed the images and the above interpretation andagree with the findings. Hermelinda Simms PA-C IMG CT ORDERABLES * (ABNORMAL) POCT URINE DIPSTICK, CLINITEK (11/14/2022 18:40 EST) Color, UA Yellow Yellow 11/14/2022 18:42 [facility] Clarity, UA Clear Clear 11/14/2022 18:42 [facility] Glucose, UA Negative Negative 11/14/2022 18:42 [facility] Bilirubin, UA Negative Negative 11/14/2022 18:42 [facility] Ketones, UA Negative Negative 11/14/2022 18:42 [facility] Specific [place], Urine >=1.030 1.001 - 1.035 11/14/2022 18:42 [facility] Blood, UA 2+(A) Negative 11/14/2022 18:42 [facility] pH, UA 7.0 4.6 - 8.0 11/14/2022 18:42 [facility] Protein, UA Negative Negative 11/14/2022 18:42 [facility] Urobilinogen, UA 0.2 0.2 - 1.0 mg/dL 11/14/2022 18:42 [facility] Nitrite, UA Negative Negative 11/14/2022 18:42 [facility] Leuk Esterase Negative Negative 11/14/2022 18:42 [facility] HN LAB COMMENT (CLINITEK, UR) Test performed at Emergency Department 11/14/2022 18:42 [facility] Urine URINE SPECIMEN COLLECTION, CLEAN CATCH / Unknown 11/14/2022 18:40 EST 11/14/2022 18:42 EST Hermelinda Simsm PA-C POINT OF CARE SERJIO T ORDERABLES [facility] [address] [place] [address] * POCT CSN BARCODE URINE DIPSTICK (11/14/2022 18:38 EST) Urine URINE SPECIMEN COLLECTION, CLEAN CATCH / Unknown Urine Collect / Unknown 11/14/2022 18:38 EST 11/14/2022 18:38 EST Hermelinda Simms PA-C LAB INFO SERVICE AND SUPPORT & PHONE RESULT Performing Organization Address City/[facility]/ZIP Co de Phone Number [facility] [address] [place] [address] * LIPASE (11/14/2022 18:38 EST) Lipase 26 <251 U/L 11/14/2022 19:00 [facility] Blood VENOUS BLOOD / Unknown Venipuncture / Unknown 11/14/2022 18:38 EST 11/14/2022 18:41 EST Hermelinda iSmms PA-C CHEMISTRY & BLOOD GAS ORDERABLES Performing Organization Address [facility] Co de Phone Number [facility] [address] [place] [address] * (ABNORMAL) COMPREHENSIVE METABOLIC PANEL (CMP) (11/14/2022 18:38 EST) Sodium 143 136 - 145 mmol/L 11/14/2022 19:00 [facility] Potassium 4.1 3.5 - 5.0 mmol/L 11/14/2022 19:00 [facility] Chloride 111(H) 96 - 110 mmol/L 11/14/2022 19:00 [facility] CO2 Total 23 22 - 32 mmol/L 11/14/2022 19:00 [facility] Glucose 107(H) 70 - 100 mg/dL 11/14/2022 19:00 [facility] BUN 11 10 - 26 mg/dL 11/14/2022 19:00 [facility] Creatinine 0.56 0.52 - 1.04 mg/dL 11/14/2022 19:00 [facility] eGFR 102 >60 mL/min/1.7 3m2 11/14/2022 19:00 [facility] Total Protein 7.1 6.3 - 8.2 g/dL 11/14/2022 19:00 [facility] Albumin 4.2 3.4 - 4.9 g/dL 11/14/2022 19:00 [facility] Alkaline Phosphatase 104 38 - 126 U/L 11/14/2022 19:00 [facility] AST 27 15 - 46 U/L 11/14/2022 19:00 [facility] ALT 20 <35 U/L 11/14/2022 19:00 [facility] Bilirubin, Total 0.5 <1.4 mg/dL 11/15/19 19:00 [facility] Calcium 8.4(L) 8.5 - 10.5 mg/dL 11/14/2022 19:00 [facility] Albumin/Globulin Ratio 1.4 1.0 - 2.5 11/14/2022 19:00 [facility] Anion Gap 9 5 - 14 11/14/2022 19:00 [facility] Blood VENOUS BLOOD / Unknown Venipuncture / Unknown 11/14/2022 18:38 EST 11/14/2022 18:41 EST Hermelinda Simms PA-C CHEMISTRY & BLOOD GAS ORDERABLES Performing Organization Address City/State/[facility] Co de Phone Number [facility] [address] [place] [address] * (ABNORMAL) COMPLETE BLOOD COUNT AND DIFFERENTIAL (11/14/2022 18:37 EST) WBC 4.92 4.00 - 12.40 K/cmm 11/14/2022 18:49 [facility] RBC 4.26 3.86 - 5.04 M/cmm 11/14/2022 18:49 [facility] Hemoglobin 13.3 11.6 - 15.2 gm/dL 11/14/2022 18:49 [facility] HCT 39.4 34.9 - 44.4 % 11/14/2022 18:49 [facility] MCV 93 81 - 98 fl 11/14/2022 18:49 [facility] MCH 31.2 26.7 - 33.3 pg 11/14/2022 18:49 [facility] MCHC 33.8 32.1 - 35.9 gm/dL 11/14/2022 18:49 [facility] RDW-CV 15.3(H) <14.7 % 11/14/2022 18:49 [facility] RDW-SD 51.6(H) <50.4 fl 11/14/2022 18:49 [facility] PLT 315 141 - 377 K/cmm 11/14/2022 18:49 [facility] MPV 9.0(L) 9.5 - 12.7 fl 11/14/2022 18:49 [facility] % Neutrophils 62.7 % 11/14/2022 18:49 [facility] % Lymphocytes 21.5 % 11/14/2022 18:49 [facility] % Monocytes 9.1 % 11/14/2022 18:49 [facility] % Eosinophils 5.9 % 11/14/2022 18:49 [facility] % Basophils 0.6 % 11/14/2022 18:49 [facility] % Immature Grans 0.2 % 11/15/19 18:49 [facility] Absolute Neutrophils 3.08 2.20 - 8.85 K/cmm 11/14/2022 18:49 [facility] Absolute Lymphocytes 1.06(L) 1.09 - 3.30 K/cmm 11/14/2022 18:49 [facility] Absolute Monocytes 0.45 0.10 - 0.80 K/cmm 11/14/2022 18:49 [facility] Absolute Eosinophils 0.29 0.03 - 0.61 K/cmm 11/14/2022 18:49 [facility] ABS Basophils 0.03 0.01 - 0.11 K/cmm 11/14/2022 18:49 [facility] Absolute Immature Grans 0.01 0.00 - 0.06 K/cmm 11/14/2022 18:49 [facility] Type of Differential: Auto 11/14/2022 18:49 [facility] Blood VENOUS BLOOD / Unknown Venipuncture / Unknown 11/14/2022 18:37 EST 11/14/2022 18:41 EST Hermelinda Simms PA-C PACKAGES & DNA CT OBE ORDERABLES [facility] [address] [place] [address] * XR CHEST PORTABLE 1 VIEW (11/14/2022 18:26 EST) Anatomical Region Laterality Modality Computed Radiogr aphy 11/15/2022 8:30 EST Impressions 11/15/2022 8:30 EST No evidence of pneumonia. I have personally reviewed the images and the above interpretation and agree with the findings. Narrative 11/15/2022 8:30 EST XR CHEST PORTABLE 1 VIEW ??11/14/2022 6:15 PM CLINICAL HISTORY/COMMENTS: cough COMPARISON: CT chest 07/21/2022, chest radiograph 05/15/2022. TECHNIQUE: Single portable AP view of the chest. FINDINGS: Lines/tubes: ??None Soft tissues, bones and extrathoracic findings: No significant abnormalities. Cardiac and mediastinal contours: Normal. Lungs: The pulmonary vasculature is normal. Coarse linear and reticular opacities with architectural distortion within the right apex related to radiation, decreased compared to 05/15/2022. Pleura: No visible pleural abnormalities. Procedure Note Gage Reddy MD - 11/15/2022 XR CHEST PORTABLE 1 VIEW 11/14/2022 6:15 PM CLINICAL HISTORY/COMMENTS: cough COMPARISON: CT chest 07/21/2022, chest radiograph 05/15/2022. TECHNIQUE: Single portable AP view of the chest. FINDINGS: Lines/tubes: None Soft tissues, bones and extrathoracic findings: No significantabnormalities. Cardiac and mediastinal contours: Normal. Lungs: The pulmonary vasculature is normal. Coarse linear and reticularopacities with architectural distortion within the right apex related toradiation, decreased compared to 05/15/2022. Pleura: No visible pleural abnormalities. IMPRESSION No evidence of pneumonia. I have personally reviewed the images and the above interpretation andagree with the findings. Hermelinda Simms PA-C IMG DIAGNOSTIC IM AGING ORDERABLES * COVID-19 TEST [facility] PCR (11/14/2022 17:56 EST) Swab ENTIRE NASOPHARYNX / Unknown Swab / Unknown 11/14/2022 17:56 EST 11/14/2022 18:04 EST Jasmin Escobedo MD MICROBIOLOGY - GENER AL ORDERABLES Performing Organization Address [facility] de Phone Number [facility] [address] [place] [id number] * COVID-19 TESTING (11/14/2022 17:56 EST) COVID-19 rt-PCR Result Negative Negative 11/14/2022 19:16 EST [facility] Comment: This test has not been FDA cleared or approved. This test has been authorized by FDA under an EUA for use by authorized laboratories. This test has been authorized only for detection of nucleic acid from 2019-nCoV, not for any other viruses or pathogens. This test is only authorized for the duration of the declaration that circumstances exist justifying the authorization of emergency use of in vitro diagnostic tests for detection and/or diagnosis of 2019-nCoV under section 564(b)(1) of Act, 21 U.S.C ?? 360bbb-3(b) (1), unless the authorization is terminated or revoked sooner. Negative results do not preclude 2019-nCoV infection and should not be used as the sole basis for treatment or other patient management decisions. Negative results must be combined with clinical observations, patient history, and epidemiological information. Performed on the KIT digital GeneXpert Instrument Performing Lab GeneXpert [facility] 11/14/2022 19:16 EST [facility] Swab ENTIRE NASOPHARYNX / Unknown Swab / Unknown 11/14/2022 17:56 EST 11/14/2022 18:04 EST Jasmin Escobedo MD MICROBIOLOGY - GENER AL ORDERABLES Performing Organization Address [facility] Co de Phone Number [facility] [address] [place] [address] * INFLUENZA A AND B,RSV PCR (11/14/2022 17:56 EST) FLU A RNA Result (FLARES) Negative Negative 11/14/2022 19:16 EST [facility] FLU B RNA Result (FLBRES) Negative Negative 11/14/2022 19:16 EST [facility] RSV RNA Result (RSVRES) Negative Negative 11/14/2022 19:16 EST [facility] Swab ENTIRE NASOPHARYNX / Unknown Swab / Unknown 11/14/2022 17:56 EST 11/14/2022 18:04 EST Jasmin Escobedo MD MICROBIOLOGY - GENER AL ORDERABLES [facility] [address] [place] [address] documented in this encounter Visit Diagnoses Diagnosis Left upper quadrant abdominal pain- Primary Left upper quadrant abdominal mass Abdominal or pelvic swelling, mass, or lump, left upper quadrant Screening for osteoporosis- Primary Special screening for osteoporosis Primary narcolepsy without cataplexy Chronic pain syndrome Chronic low back pain Lumbago Chronic use of opiate for therapeutic purpose Pain medication agreement Encounter for long-term (current) use of other medications Screen for colon cancer Special screening for malignant neoplasms, colon documented in this encounter Administered Medications Inactive Administered Medications - up to 3 most recent administrations Medication Order MAR Action Action Date Dose Rate Site iohexoL (OMNIPAQUE 350) solution 100 mL 100 mL, intravenous, Once in imaging, 1 dose, Starting on 11/14/22 at 1909, Until 11/14/22 at 1922, Routine, Imaging Protocol Orders Given 11/14/2022 19:22 EST 95 mL ipratropium-albuteroL (DUONEB) 0.5 mg-3 mg(2.5 mg base)/3 mL nebulizer solution 3 mL 3 mL, nebulization, NOW X1, 1 dose, On 11/14/22 at 1900, STAT Given 11/14/2022 19:37 EST 3 mL documented in this encounter Active and Recently Administered Medications Times are shown in EST. Scheduled Medication Order 11/12/2022 11/13/2022 11/14/2022 iohexoL (OMNIPAQUE 350) solution 100 mL (COMPLETED) 100 mL, intravenous, Once in imaging, 1 dose, Starting on 11/14/22 at 1909, Until 11/14/22 at 1922, Routine, Imaging Protocol Orders 192 (Given - Provid er: Feli Blanchard) ipratropium-albuteroL (DUONEB) 0.5 mg-3 mg(2.5 mg base)/3 mL nebulizer solution 3 mL (COMPLETED) 3 mL, nebulization, NOW X1, 1 dose, On 11/14/22 at 1900, STAT 1937 (Given - Provid er: Elizabeth Saravia RN) documented in this encounter Additional Health Concerns Infection Onset Date Last Indicated Resolved Time R/O COVID-19 11/14/2022 11/14/2022 11/14/2022 19:1 6 EST documented as of this encounter Care Teams Health Physicist Relationship Specialty Start Date End Date Jean Munoz MD [address] [place] [phone] PCP - General 12/31/08 Manny Rizzo MD [address] [place] [id number] 04/20/10 Afia Valle MD [address] [place] [address], [address] [place] [phone] Care Team Radiation Oncology 07/02/21 Jesi Leong, [facility] [address] [place] [phone] Behavioral Health Food Checkers And Cashiers SupervisorFleet Dispatch Manager Care 10/19/22 01/23/24 documented as of this encounter
--- OUTSIDE RECORDS SUMMARY | 2024-06-10 07:06 | XMS_ITS | Encounter Summary ---
Author Organization [facility] Address [address] [place] [address] Care Team Providers Care Solo Truck Driver Name Role Phone Jean Munoz MD Primary Care Provider Manny Rizzo MD Unavailable Afia Valle MD Unavailable [phone] Jesi Leong Unavailable Reason for Referral * Test (Routine/Next Available) - Authorization Not Required Specialty Diagnoses / Procedures Referred By Contac t Referred To Contact Diagnoses Chronic obstructive pulmonary disease, unspecified COPD type (HCC-CMS) Procedures PULMONARY FUNCTION TESTING Jed Gannon MD [address] [facility], [address] [place] [address] Referral ID Status Reason Start Date Expiration Date Visits Requested Visits Authorized [id number] Authorization Not Required 05/25/2022 1 1 Reason for Visit * Test (Routine/Next Available) - Authorization Not Required Specialty Diagnoses / Procedures Referred By Contac t Referred To Contact Diagnoses Chronic obstructive pulmonary disease, unspecified COPD type (HCC-CMS) Procedures PULMONARY FUNCTION TESTING Jed Gannon MD [address] [facility], [address] [place] [address] Referral ID Status Reason Start Date Expiration Date Visits Requested Visits Authorized [id number] Authorization Not Required 05/25/2022 1 1 Encounter Details Date Type Department Care Team (Latest Contact Info) Description 01/27/2023 12:16 EDT - 01/27/2023 23:59 EDT Hospital Encounter [facility] Pulmonary Function Lab - [address] [address] Chronic obstructive pulmonary disease, unspecified COPD type ([facility]) Discharge Disposition: Home or Self Care Social [...] slept in a care home (including now)? No 07/30/2022 Interpersonal Safety Answer Date Record ed How often does anyone, claudia long family, hit, punch or physically hurt you? Rarely 04/24/2021 How often does anyone, inclu mercedes family, [...] for allergies 90 Tablet 4 07/14/2022 07/02/2023 fluticasone-umeclidin- vilanter (TRELEGY ELLIPTA) 200-62.5-25 mcg blister with device Inhale 1 Puff as directed daily. 60 Each 5 01/27/2023 07/15/2023 HYDROcodone-acetaminop hen (NORCO) 7.5-325 mg per tablet Take 1 Tablet by mouth every 6 hours for 28 days. For chronic pain. Daily Max: 4 Tablets 112 Tablet 01/04/2023 02/22/2023 HYDROcodone-acetaminop hen (NORCO) 7.5-325 mg per tabletIndications:Civil Rights Investigator majo 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 For chronic pain. Daily Max: 4 Tablets 112 Tablet 02/27/2023 02/17/2023 HYDROcodone-acetaminop hen (NORCO) 7.5-325 mg per tabletIndications:Civil Rights Investigator majo 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 For chronic pain. Daily Max: 4 Tablets 112 Tablet 01/30/2023 01/30/2023 hydroxypropyl methylcellulose (ISOPTO TEARS) 0.5 % ophthalmic solution Place 1 Drop into both eyes 5 times daily. 12/10/2010 10/06/2023 ipratropium-albuteroL (DUONEB) 0.5 mg-3 mg(2.5 mg base)/3 mL nebulizer solutionIndications:Pa nlobular emphysema (HCC-CMS) Take 3 mL by nebulization every 4 hours as needed for Wheezing. 3 mL 3 11/23/2022 10/06/2023 lancets Brand: [employer], check blood glucose twice daily. 100 Each [...] 2 01/19/2023 10/06/2023 methocarbamoL (ROBAXIN) 500 mg tabletIndications:Civil Rights Investigator majo pain syndrome Take 2 Tablets by mouth at bedtime. 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 For narcolepsy. Daily Max: 40 mg 56 Tablet 02/27/2023 02/17/2023 methylphenidate HCl (RITALIN;METHYLIN) 20 mg tabletIndications:Prim sheila narcolepsy without cataplexy Take 2 Tablets by mouth daily for 28 days. For narcolepsy. Daily Max: 40 mg 56 Tablet 01/30/2023 02/22/2023 methylphenidate HCl (RITALIN;METHYLIN) 20 mg tabletIndications:Prim sheila narcolepsy without cataplexy Take 2 Tablets by mouth daily for 28 days. For narcolepsy. Daily Max: 40 mg 56 Tablet 01/02/2023 03/29/2023 methylphenidate HCl (RITALIN;METHYLIN) 10 mg tabletIndications:Prim sheila narcolepsy without cataplexy Take 1 Tablet by mouth daily for 28 days. For narcolepsy. Daily Max: 10 mg 28 Tablet 02/27/2023 02/17/2023 methylphenidate HCl (RITALIN;METHYLIN) 10 mg tabletIndications:Prim sheila narcolepsy without cataplexy Take 1 Tablet by mouth daily for 28 days. For narcolepsy. Daily Max: 10 mg 28 Tablet 01/30/2023 03/29/2023 methylphenidate HCl (RITALIN;METHYLIN) 10 mg tabletIndications:Prim sheila narcolepsy without cataplexy Take 1 Tablet by mouth daily for 28 days. For narcolepsy. Daily Max: 10 mg 28 Tablet 01/02/2023 03/29/2023 montelukast (SINGULAIR) 10 mg tabletIndications:Nakul rgic rhinitis, [...] 1 03/11/2022 03/29/2023 roflumilast (DALIRESP) 500 mcg tabletIndications:Civil Rights Investigator majo obstructive pulmonary disease, unspecified COPD type [...] 1 DOSE FOR MIGRAINE. 9 Tablet 3 12/09/2022 05/31/2023 zolpidem (AMBIEN) 5 mg tabletIndications:Inso mnia, unspecified type Take 1 Tablet by mouth at bedtime. Daily Max: 5 mg 28 Tablet 5 10/01/2022 03/03/2023 documented as of this encounter Discharge Disposition Disposition Code Departure Means Destination Home or Self Care documented in this encounter Progress Notes * Susan Viera RT - 01/27/2023 1230 EDT Testing was performed and recorded in [employer]. See complete report in Procedures. documented in this encounter Plan of Treatment Upcoming Encounters Date Type Department Care Team (Late st Contact Info) Description 06/29/2024 14:15 EDT Office Visit [facility] [address] [place], [place] [id number] Jean Munoz MD [address] [place] [address] documented as of this encounter Procedures Procedure Name Priority Date/Time Associated Diagnosis Comments PULMONARY FUNCTION TESTING Routine 01/27/2023 12:18 EDT Chronic obstructive pulmonary disease, unspecified COPD type ([facility]) documented in this encounter Results * PULMONARY FUNCTION TESTING (01/27/2023 12:18 EDT) 01/27/2023 12:1 8 EDT Jed Gannon MD PFT ORDERABLES [facility] PFT documented in this encounter Visit Diagnoses Diagnosis Chronic obstructive pulmonary disease, unspecified COPD type ([facility]) Screening for osteoporosis- Primary Special screening for osteoporosis Primary narcolepsy without cataplexy Chronic pain syndrome Chronic low back pain Lumbago Chronic use of opiate for therapeutic purpose Pain medication agreement Encounter for long-term (current) use of other medications Screen for colon cancer Special screening for malignant neoplasms, colon documented in this encounter Care Teams Solo Truck Driver Relationship Specialty Start Date End Date Jean Munoz MD [address] [place] [address] PCP - General 12/31/08 Manny Rizzo MD [address] [place] [phone] 04/20/10 Afia Valle MD [address] [place] [address] [address] [place] [phone] Care Team Radiation Oncology 07/02/21 Jesi Leong, [facility] [address] [place] [address] Behavioral Health Service ObserverComputer Forensics Investigator Care 10/19/22 01/23/24 documented as of this encounter
--- OUTSIDE RECORDS SUMMARY | 2024-06-10 07:06 | XMS_ITS | Encounter Summary ---
Author Organization [facility] Address [address] [place] [address] Care Team Providers Care Vegetable Farm Manager Name Role Phone Jean Munoz MD Primary Care Provider Manny Rizzo MD Unavailable Afia Valle MD Unavailable Jesi Leong ROVING TECHNICIAN Unavailable Reason for Visit * Reason Comments Anxiety Encounter Details Date Type Department Care Team (Late st Contact Info) Description 11/24/2022 13:30 EDT Telemedicine [facility] [address] [place] [address] Jesi Leong ROVING TECHNICIAN [address] [place] [address] Anxiety (Primary Dx) Social History Tobacco Use Types [...] this encounter Progress Notes * Jesi Leong, [facility] - 11/24/2022 1330 EDT [facility] Behavioral Health Strip Machine Operator Follow Up Note Appointment took place via televideo Behavioral Health Screen - PHQ and HEYDI 12/24/2021 10/19/2022 11/24/2022 PHQ-9 26 17 9 HEYDI-7 21 20 13 Updates/Gibson Setting Mood check Homework review Grief / Loss 3 deaths in last month Treatment Updates Psychopharmacotherapy: Methylphenidate 40mg every morning and 10mg tab each afternoon for Narcolepsy. Buspar 15mg 3x per day Cymbalta 60mg every morning and evening. ??? Compliance:compliant all of the time ??? Effectiveness:No feels Buspar has never helped; would like more support for anxiety symptoms. Basically like taking nothing. ??? Side Effects:No Cognitive/Mood/Behavioral: ??? Liset reflects on past month, sharing details of her own illness, ED visit and three deaths in family. Her Aunt Gita's (they were 72 years) and then Gita ten days later. Reflects on connection to father, the last relative (paternal aunt). One hell of a cold, coughing during visit. ??? Liset shares she now has a fitness center attendant / friend (non-romantic) residing with her, Robert. She notes having him there has helped improve her mood. They have a lot in common, reports even though they didn't know one another (only via Will's brother in [place]) it has turned out really good. Shares feeling boost my spirits. He helped care for her earlier this month when she was really sick. ??? Discussed engagement in pleasant activities. Now has large box of yarn, use for shaggy. Meal planning with Robert, enjoying cooking. ??? Reports improved sleep. ??? Completed PHQ and HEYDI together verbally, reflect on reduction in symptoms. Liset feels despite the rollercoaster of deaths, she is grateful to report improved depressive symptoms. ??? Liset states anxiety continues to be present. Shares off the wall (pacing, talking fast, heartbeating rapidly, breathing hard). She shares she's had two episodes (panic?) in the month. Will helps to ground her. Next visit will explore more grounding strategies as time sharp we were wrapping up. This investment underwriter agrees to discuss Liset's question with Dr. Hatch during Psychiatry Consult. Anythingto support anxiety other than Buspar? Care Management: ??? See Dr. Munoz 12/15 as scheduled. Summary: Stage of Change: Action Liset presents as planned, she is engaged and appropriate throughout visit. Liset's depressive symptoms have decreased significantly. She attributes this to having a friend, Will, staying with her. Liset is concerned about remaining anxiety symptoms, noting what sounds like panic attack on two occasions thus far this month. Next visit we will explore further grounding techniques and this investment underwriter did agree to discuss in psychiatry consult. Liset denies any suicidal ideation, plan or intent. Continuesto visit brother regularly. Daughter in [place] came down for the funerals. Plan: ??? Recommended Level of Care: Brief Intervention ??? Treatment Plan: Behavioral Activation/CBT, Cognitive Restructuring/CBT and Skills Practice ??? Planned Frequency: biweekly ??? Visit 3 of anticipated 12 Visits. ??? Skills Practice: Engage in pleasant activities, shaggy, cooking - five of seven days. Next visit explore grounding / mindfulness activities. ??? Follow Up: December 08, 2022 at 130pm. ??? Referrals: none at this time. ??? Discuss with Psychiatric Tiller Man: Yes. Time Spent: 30 min documented in this encounter Plan of Treatment Upcoming Encounters Date Type Department Care Team (Late st Contact Info) Description 06/29/2024 14:15 EDT Office Visit [address] [address] Jean Munoz MD [address] [place] [address] documented as of this encounter Visit Diagnoses Diagnosis Anxiety- Primary Anxiety state, unspecified Screening for osteoporosis- Primary Special screening for osteoporosis Primary narcolepsy without cataplexy Chronic pain syndrome Chronic low back pain Lumbago Chronic use of opiate for therapeutic purpose Pain medication agreement Encounter for long-term (current) use of other medications Screen for colon cancer Special screening for malignant neoplasms, colon documented in this encounter Care Teams Vegetable Farm Manager Relationship Specialty Start Date End Date Jean Munoz MD [address] [place] [phone] PCP - General 12/31/08 Manny Rizzo MD [address] [place] [phone] 04/20/10 Afia Valle MD [address] [place] [address] 2 [place] [phone] MD Care Team Radiation Oncology 07/02/[address] [facility] [address] [place] [address] Behavioral Health Strip Machine OperatorSupervisor Facepiece Line Care 10/19/22 01/23/24 documented as of this encounter
--- OUTSIDE RECORDS SUMMARY | 2024-06-10 07:06 | XMS_ITS | Encounter Summary ---
Author Organization [facility] Address [address] [place] [address] Care Team Providers Care Laborer Turkey Farm Name Role Phone Jean Munoz MD Primary Care Provider Manny Rizzo MD Unavailable Afia Valle MD Unavailable [phone] Jesi Leong CAR SHAKEOUT OPERATOR Unavailable [phone] Reason for Visit * Reason Onset Date Comments Coordination Of Care 11/10/2022 Encounter Details Date Type Department Care Team (Late st Contact Info) Description 11/10/[address] [facility] [address] [place] [address] Jesi Leong CAR SHAKEOUT OPERATOR [address] [place] [address] Coordination Of Care Social History Tobacco Use Types Packs/Day [...] you have serious difficulty h earing? No 05/15/2022 Are you blind or do you have [...] encounter Miscellaneous Notes * Telephone Encounter - [place]o JesiFADUMO berry - 11/10/2022 1357 EST Primary Care Mental Health Integration Phone Encounter 11/10/22 This creative writer was scheduled to meet with Liset on this date at 1:30pm via [employer]. Liset did not arrive. Attempted to reach her by phone, VM is full. Sent text welcoming her call backbefore 2pm or reschedule. Will ask Central Scheduling to reach out to Liset to offer reschedule. 11/11/22 This creative writer discussed scheduling with Central Scheduling colleague; Liset already has a visit on 11/24 at 130pm with this creative writer. This creative writer reached out to Liset via text to remind her of the 11/24 visit. Asked Liset to reach out if she'd like to squeeze a visit in prior to the 11/24 visit. documented in this encounter Plan of Treatment Upcoming Encounters Date Type Department Care Team (Late st Contact Info) Description 06/29/2024 14:15 EDT Office Visit [facility] [address] [place] [address] Jean Munoz MD [address] [place] [phone] documented as of this encounter Visit Diagnoses Not on filedocumented in this encounter Care Teams Laborer Turkey Farm Relationship Specialty Start Date End Date Jean Munoz MD [address] [place] [phone] PCP - General 12/31/08 Manny Rizzo MD [address] [place] [address] 04/20/10 Afia Valle MD [address] [facility], [facility] [address] [place] [phone] MD Care Team Radiation Oncology 07/02/21 Jesi Leong, [facility] [address] [place] [phone] Behavioral Health Larry Car OperatorHalf Backer Care 10/19/22 01/23/24 documented as of this encounter
--- OUTSIDE RECORDS SUMMARY | 2024-06-10 07:06 | XMS_ITS | Encounter Summary ---
Author Organization [facility] Address [address] [place] [address] Care Team Providers Care Medical Science Liaison Name Role Phone Jean Munoz MD Primary Care Provider Manny Rizzo MD Unavailable Afia Valle MD Unavailable Jesi Leong COCONUT CANDY MAKER Unavailable [phone] Reason for Visit * Reason Comments Anxiety Depression Encounter Details Date Type Department Care Team (Late st Contact Info) Description 02/16/2023 15:00 EDT Telemedicine [facility] [address] [place] [address] Jesi Leong, COCONUT CANDY MAKER [address] [place] [address] Current moderate episode of major [...] slept in a nursing home (including now)? No 07/30/2022 Interpersonal Safety [...] Progress Notes * Jesi Leong LICSW - 02/16/2023 1500 EDT Primary Care Mental Health Integration Behavioral Health Computational Theory Scientist Follow-up Collaborative Care / Psychotherapy Note Date of Service: 02/16/2023 Time of Service: 3pm Total Time: 29 minutes Collaborative Care Time Spent: 3 Psychotherapy Time Spent: 26 Psychotherapy Procedure Code: [id number] 16-37mins individual f/u Appointment took place via televideo with patient. TELEMEDICINE VIDEO VISIT Today's visit was provided through telemedicine video conferencing: I have reviewed the appropriateness of using video technology with the patient with regards to today's visit. The location of the patient : Hotel (temporary housing) in [place] Patient location state: Visit Location State: [place] The location of the provider: Office Provider location state: Visit Location State: [place] The following people and their roles were [...] from: patient interview Subjective Liset reports mood starting to get better, shares still a lot of anxiety. Attributes remaining anxiety around lack of permanent housing. Liset shares use of sleep my escape as main coping for anxiety. Notes however she is seeking more connection with community since she relocated to [place].Shares she'll be making tacos for dinner tonight for herself, Will and a few others who live there.Liset states she and Will have shifted dynamics and she's grateful for his big heart. Looking forward traveling to [place] in September. Themes around relationship dynamics and next steps related todivorce proceedings explored. Objective Mental Status Examination Appearance: casually dressed, well groomed, and appears WNL. Behavior: readily engaged in discussion Alertness: alert Speech: speech is of normal rate, tone, and spontaneity, use of language is is normal. Orientation: to person, place, time and situation Mood: anxious Affect: appropriately varied relative to content and context of discussion Thought Process: organized and future oriented. Memory: intact Judgment:fair Validated Behavioral Health Measures Risk Totals: MFQ, PHQ-9A, PHQ-2/PHQ-9, and HEYDI-7 11/10/2018 04/24/2021 12/24/2021 10/19/2022 11/24/2022 01/05/2023 02/16/2023 PHQ-2 2 2 6 5 3 3 2 PHQ-9 - - 26 17 9 16 10 PHQ-9 Interpretation - - Severe Depression Moderately Severe Depression Mild Depression Moderately Severe Depression Moderate Depression HEYDI-2 - - 6 6 3 5 4 HEYDI-7 - - 21 20 13 17 12 HEYDI-7 Interpretation - - Severe Anxiety Severe Anxiety Moderate Anxiety Severe Anxiety Moderate Anxiety Current Medications Current Outpatient [...] DAY for allergies 90 Tablet 4 ??? kusvupvwdef-lcsuthkjx-xzfudiqd (TRELEGY ELLIPTA) 200-62.5-25 mcg blister with device [...] facility-administered medications for this visit. Psychopharmacology: Compliance:compliant most of the time Effectiveness:Yes Side Effects:No Assessment (include DSM V diagnosis, progress since last session, and decision making regarding treatment plan) Liset is a 62 y.o. female presenting with (F32.1) Current moderate episode of major depressive disorder, unspecified whether recurrent (HCC) (primary encounter diagnosis) (F41.9) Anxiety Liset denies any current or recent thoughts, plans or intention of ending her life by suicide. Liset has made progress since our last visit, see GAD7 above, score reduced from Severe to Moderate. Depressive symptoms remain within moderate range but qualitatively Liset reports finding self with more social connection in their new living environment which has contributed to reducing isolation and improving mood. Liset is engaging in behavioral activation, enjoying cooking for herself, her partner christina few neighbors. Liset shares she and Will also recent enjoyed dinner and a movie in the local city.Liset shares she and Will have been walking more regularly which may be supporting improved mood. Liset requests continued care within PCMHI model to support her goals. Stage of Change: Action Recommendations and Plan 1. Recommended Level of Care: Brief Intervention 2. Continue current treatment plan 3. Follow up is scheduled for March 01, 2023 at 3pm via [employer]. 4. Complete Skills Practice: Continue walking and connecting with others in community (reduce isolation) 5. Care Management Needs: Now that she is in [facility], feeling more well wrapped. Now has [facility] Care Management for housing navigation. 6. Continue current pharmacotherapy as applicable. ??? Expectations of Next Session: Continue current treatment plan and Monitor symptoms and adjust treatment as indicated ??? Anticipated Length of Treatment:7 additional every other week sessions ??? Anticipated Duration of Sessions: 30 minutes FADUMO Salcedo 02/16/2023 15:42 documented in this encounter Plan of Treatment Upcoming Encounters Date Type Department Care Team (Late st Contact Info) Description 06/29/2024 14:15 EDT Office Visit [facility] [address] [place] [address] Jean Munoz MD [address] [place] [address] documented as of this encounter [...] colon documented in this encounter Care Teams Medical Science Liaison Relationship Specialty Start Date End Date Jean Munoz MD [address] [place] [phone] PCP - General 12/31/08 Manny Rizzo MD [address] [place] [phone] 04/20/10 Afia Valle MD [address] [place] [address] 2 [place] [phone] Care Team Radiation Oncology 07/02/21 Jesi Leong, [facility] [address] [place] [address] Behavioral Health Computational Theory ScientistTypewriters Functional Tester Care 10/19/22 01/23/24 documented as of this encounter
--- OUTSIDE RECORDS SUMMARY | 2024-06-10 07:06 | XMS_ITS | Encounter Summary ---
Author Organization [facility] Address [address] [place] [address] Care Team Providers Care Bilingual Secretary Name Role Phone Jean Munoz MD Primary Care Provider Manny Rizzo MD Unavailable Afia Valle MD Unavailable Jesi Leong Unavailable Reason for Visit * Reason Onset Date Comments Medication Problem 01/04/2023 Encounter Details Date Type Department Care Team (Late st Contact Info) Description 01/04/2023 Telephone [facility] [address] [place] [address] Jean Munoz MD [address] [place] [address] Medication Problem Social History Tobacco [...] or slept in a correction (including now)? No 07/30/2022 Interpersonal Safety Answer [...] te HYDROcodone-acetaminophe n (NORCO) 7.5-325 mg per tablet Take 1 Tablet by mouth every 6 hours for 28 days. For chronic pain. Daily Max: 4 Tablets 112 Tablet 01/04/2023 02/22/2023 documented in this encounter Miscellaneous Notes * Telephone Encounter - Jean Munoz MD - 01/04/2023 1116 EDT New Rx sent. * Telephone Encounter - Fani Dickens RN - 01/04/2023 1058 EDT Images from the original note were not included. VPMS check: Pended rx, routing to PCP for approval. FANI SPANGLER RN 01/04/2023 10:58 * Telephone Encounter - Dot Patel - 01/04/2023 1008 EDT Reason for Call: Medication Problem Summary/Symptoms: Patient is calling, she says that Komal says her pain medication is back ordered. Patient needs her Hydrocodone Acetaminophen transferred to [facility]. Pended. Patient states she is out of medication. Onset and Duration? n/a Appointment Offered? No Dot Patel 01/04/2023 10:09 documented in this encounter Plan of Treatment Upcoming Encounters Date Type Department Care Team (Late st Contact Info) Description 06/29/2024 14:15 EDT Office Visit [address] [address] Jean Munoz MD [address] [place] [phone] documented as of this encounter Visit Diagnoses Not on filedocumented in this encounter Discontinued Medications Medication Sig Discontinue Reason Start Date End Da te HYDROcodone-acetaminophe n (NORCO) 7.5-325 mg per tablet Take 1 Tablet by mouth every 6 hours for 28 days. For chronic pain. Daily Max: 4 Tablets Availability 01/02/2023 01/04/2023 documented as of this encounter Care Teams Bilingual Secretary Relationship Specialty Start Date End Date Jean Munoz MD [address] [place] [phone] PCP - General 12/31/08 Manny Rizzo MD [address] [place] [phone] 04/20/10 Afia Valle MD [address] [place] [address], [facility] [address] [place] [phone] Care Team Radiation Oncology 07/02/21 Jesi Leong, [facility] [address] [place] [address] Behavioral Health Security Officers And GuardsAutomotive Upholsterer Care 10/19/22 01/23/24 documented as of this encounter
--- OUTSIDE RECORDS SUMMARY | 2024-06-10 07:06 | XMS_ITS | Encounter Summary ---
Author Organization [facility] Address [address] [place] [address] Care Team Providers Care Farm Labor Contractor Name Role Phone Jean Munoz MD Primary Care Provider Manny Rizzo MD Unavailable Afia Valle MD Unavailable Jesi Leong Unavailable Reason for Visit * Reason Onset Date Comments Cough 11/20/2022 Encounter Details Date Type Department Care Team (Late st Contact Info) Description 11/20/2022 Telephone [facility] [address] [place] [address] Jean Munoz MD [address] [place] [address] Cough Social History Tobacco Use Types Packs/Day Years [...] or slept in a penitentiary (including now)? No 07/30/2022 Interpersonal Safety Answer [...] encounter Miscellaneous Notes * Telephone Encounter - Lenore No RN - 11/20/2022 1547 EST Patient seen in Emergency Department 3/ for cough and cyst below left breast/upper part of abdomen. Cough not worsening but not getting any better Patient has albuterol inhaler, Advair, had neb medication but no machine-waiting for replacement equipment that is in transport from medical supply co Patient able to speak in full sentences, denies shortness of breath. Advised Patient to be seen at Urgent Care as nebulizer may be needed and no appointment available today Encouraged Patient to schedule OV for follow up Patient states she will call back on Wednesday to discuss visit Provided info re: weekend clinic Patient verbalized understanding with no barriers to learning and agrees with plan of care. LENORE NO RN 11/20/2022 16:03 * Telephone Encounter - Dot Patel - 11/20/2022 1043 EST Reason for Call: Cough Summary/Symptoms: Patient states she was seen at the ER for a cough and a lump just below her breast that pops out when she coughs. Patient says nothing is working to get rid of the cough. Patient isalmost unable to talk for coughing. Patient is asking what she should be doing next. Patient said they swabbed her for flu, covid and RSV all negative. Patient will be at a between 1 and 2 pm. Onset and Duration? n/a Appointment Offered? No Dot Patel 11/20/2022 10:43 documented in this encounter Plan of Treatment Upcoming Encounters Date Type Department Care Team (Late st Contact Info) Description 06/29/2024 14:15 EDT Office Visit [facility] [address] [place] [address] Jean Munoz MD [address] [place] [address] documented as of this encounter Visit Diagnoses Not on filedocumented in this encounter Care Teams Farm Labor Contractor Relationship Specialty Start Date End Date Jean Munoz MD [address] [place] [phone] PCP - General 12/31/08 Manny Rizzo MD [address] [place] [phone] 04/20/10 Afia Valle MD [address] [place] [address], [facility] 2 [place] [phone] Care Team Radiation Oncology 07/02/21 Jesi Leong, [facility] [address] [place] [phone] Behavioral Health Grain Elevator Motor StarterIlluminator Care 10/19/22 01/23/24 documented as of this encounter
--- OUTSIDE RECORDS SUMMARY | 2024-06-10 07:06 | XMS_ITS | Encounter Summary ---
Author Organization [facility] Address [address] [place] [address] Care Team Providers Care Research Leader Name Role Phone Jean Munoz MD Primary Care Provider Manny Rizzo MD Unavailable Afia Valle MD Unavailable [phone] Jesi Leong Unavailable Reason for Visit * Reason Onset Date Comments Medication Problem 11/06/2022 Encounter Details Date Type Department Care Team (Late st Contact Info) Description 11/06/2022 Telephone [facility] [address] [place] [address] Jean Munoz MD [address] [place] [address] Medication Problem Social History Tobacco [...] slept in a group home (including now)? No 07/30/2022 Interpersonal Safety [...] Telephone Encounter - Jean Munoz MD - 11/06/2022 1312 EST DME order done. * Telephone Encounter - Deidre Patel - 11/06/2022 1150 EST Reason for Call: Medication Problem Summary/Symptoms: Need new script for nebulizer supplies for patient. The one they have is dated June of last year Onset and Duration? N/A Appointment Offered? N/A Deidre Patel 11/06/2022 11:51 documented in this encounter Plan of Treatment Upcoming Encounters Date Type Department Care Team (Late st Contact Info) Description 06/29/2024 14:15 EDT Office Visit [address] [phone] Jean Munoz MD [address] [place] [phone] documented as of this encounter Visit Diagnoses Diagnosis Chronic obstructive pulmonary disease, unspecified COPD type ([facility])- Primary Screening for osteoporosis- Primary Special screening for osteoporosis Primary narcolepsy without cataplexy Chronic pain syndrome Chronic low back pain Lumbago Chronic use of opiate for therapeutic purpose Pain medication agreement Encounter for long-term (current) use of other medications Screen for colon cancer Special screening for malignant neoplasms, colon documented in this encounter Orders Equipment Count Last Ordered Date First Orde red Date GENERIC DME ORDER 1 11/06/2022 documented in this encounter Additional Health Concerns Infection Onset Date Last Indicated Resolved Time R/O COVID-19 11/14/2022 11/14/2022 11/14/2022 19:1 6 EST documented as of this encounter Care Teams Research Leader Relationship Specialty Start Date End Date Jean Munoz MD [address] [place] [address] PCP - General 12/31/08 Manny Rizzo MD [address] [place] [phone] 04/20/10 Afia Valle MD [address] [facility], [facility] 2 [place] [phone] Care Team Radiation Oncology 07/02/21 Jesi Leong, [facility] [address] [place] [address] Behavioral Health Director Food SafetyComputer Project Manager Care 10/19/22 01/23/24 documented as of this encounter
--- OUTSIDE RECORDS SUMMARY | 2024-06-10 07:06 | XMS_ITS | Encounter Summary ---
Author Organization [facility] Address [address] [place] [address] Care Team Providers Care Cobol Application Developer Name Role Phone Jean Munoz MD Primary Care Provider Manny Rizzo MD Unavailable Afia Valle MD Unavailable Jesi Leong Unavailable [phone] Reason for Visit * Reason Onset Date Comments Medications Refill 11/23/2022 Encounter Details Date Type Department Care Team (Late st Contact Info) Description 11/23/[address] [facility] 3 [place] [address] Jean Munoz MD [address] [place] [address] Medications Refill Social History Tobacco [...] Dispensed Refills Start Date End Da te ipratropium-albuteroL (DUONEB) 0.5 mg-3 mg(2.5 mg base)/3 mL nebulizer solutionIndications:Jarquin lobular emphysema (HCC-CMS) Take 3 mL by nebulization every 4 hours as needed for Wheezing. 3 mL 3 11/23/2022 10/06/2023 documented in this encounter Miscellaneous Notes * Telephone Encounter - Jaun Trotter RN - 11/23/2022 1521 EDT Requested Prescriptions Pending Prescriptions Disp Refills ??? ipratropium-albuteroL (DUONEB) 0.5 mg-3 mg(2.5 mg base)/3 mL nebulizer solution 3 mL 3 Sig: Take 3 mL by nebulization every 4 hours as needed for Wheezing. Pharmacy: [facility] Last Refill Date: 08/30/19 Last Visit Date: 10/01/22 Next Non-Acute Visit Date Scheduled with Care Team: Yes. 12/15/22 JAUN TROTTER RN 11/23/2022 15:21 * Telephone Encounter - Deidre Patel - 11/23/2022 1434 EDT Medication(s) Requested: [facility] Preferred Pharmacy: [facility] Is patient out of medication? Yes Last Refill Date: 08/30/19 Last Visit Date with Ordering Provider: 10/01/22 Next Non-Acute Visit Date Scheduled with Care Team: Yes. Please let patient know when script goes to pharmacy, she has to walk to get there. Deidre Patel 11/23/2022 14:35 documented in this encounter Plan of Treatment Upcoming Encounters Date Type Department Care Team (Late st Contact Info) Description 06/29/2024 14:[address] [facility] [address] [place] [address] Jean Munoz MD [address] [place] [address] documented as of this encounter [...] Discontinue Reason Start Date End Da te ipratropium-albuterol (DUONEB) 0.5 mg-3 mg(2.5 mg base)/3 mL nebulizer solutionIndications:P anlobular emphysema (HCC-CMS) Take 3 mL by nebulization every 4 hours as needed for Wheezing. Reorder 08/30/2019 11/23/2022 documented as of this encounter Care Teams Cobol Application Developer Relationship Specialty Start Date End Date Jean Munoz MD [address] [place] [address] PCP - General 12/31/08 Manny Rizzo MD [address] [place] [phone] 04/20/10 Afia Valle MD [address] [facility] 2 [place] [phone] MD Care Team Radiation Oncology 07/02/21 Jesi Leong, [facility] [address] [place] [address] Behavioral Health Dental Appliance RepairerBeef Pusher Care 10/19/22 01/23/24 documented as of this encounter
--- OUTSIDE RECORDS SUMMARY | 2024-06-10 07:06 | XMS_ITS | Encounter Summary ---
Author Organization [facility] Address [address] [place] [address] Care Team Providers Care Lumber Hacker Name Role Phone Jean Munoz MD Primary Care Provider Manny Rizzo MD Unavailable Afia Valle MD Unavailable [phone] Jesi Leong Unavailable Reason for Visit * Reason Comments Medications Refill Encounter Details Date Type Department Care Team (Late st Contact Info) Description 01/01/2023 Refill [facility] Medicine [facility] 3 [place] [address] Jean Munoz MD [address] [place] [address] Medications Refill Social History Tobacco [...] End Da te rOPINIRole (REQUIP) 2 mg tabletIndications:Restle ss legs syndrome TAKE 1 TABLET BY MOUTH NIGHTLY AT BEDTIME 90 Tablet 3 01/04/2023 10/06/2023 documented in this encounter Miscellaneous Notes * Telephone Encounter - Palma Olivia RN - 01/04/2023 0892 EDT Requested Prescriptions Pending Prescriptions Disp Refills ??? rOPINIRole (REQUIP) 2 mg tablet [Pharmacy Med Name: rOPINIRole HCl Oral Tablet 2 MG] 90 Tablet 0 Sig: TAKE 1 TABLET BY MOUTH NIGHTLY AT BEDTIME Pharmacy: [facility] Last Refill Date: 11/26/21 #90 with 3 refills (Ropinirole 2mg tablets) Last Visit Date: 12/15/22 Return in about 12 weeks (around 03/09/2023) for PE in person. Next Non-Acute Visit Date Scheduled with Care Team: No. PALMA OLIVIA RN 01/04/2023 9:02 documented in this encounter Plan of Treatment Upcoming Encounters Date Type Department Care Team (Late st Contact Info) Description 06/29/2024 14:15 EDT Office Visit [facility] [address] [place] [address] Jean Munoz MD [address] [place] [address] documented as of this encounter Visit Diagnoses Diagnosis Restless legs syndrome- Primary Restless legs syndrome (RLS) Screening for osteoporosis- Primary Special screening for osteoporosis Primary narcolepsy without cataplexy Chronic pain syndrome Chronic low back pain Lumbago Chronic use of opiate for therapeutic purpose Pain medication agreement Encounter for long-term (current) use of other medications Screen for colon cancer Special screening for malignant neoplasms, colon documented in this encounter Discontinued Medications Medication Sig Discontinue Reason Start Date End Da te rOPINIRole (REQUIP) 2 mg tabletIndications:Restle ss legs syndrome Take 1 Tablet by mouth at bedtime. 11/26/2021 01/04/2023 documented as of this encounter Care Teams Lumber Hacker Relationship Specialty Start Date End Date Jean Munoz MD [address] [place] [address] PCP - General 12/31/08 Manny Rizzo MD [address] [place] [phone] 04/20/10 Afia Valle MD [address] [facility] [address] [place] [phone] MD Care Team Radiation Oncology 07/02/21 Jesi Leong, [facility] 3 [place] [address] Behavioral Health Post Anesthesia NurseElectron Microprobe Operator Care 10/19/22 01/23/24 documented as of this encounter
--- OUTSIDE RECORDS SUMMARY | 2024-06-10 07:06 | XMS_ITS | Encounter Summary ---
Author Organization [facility] Address [address] [place] [address] Care Team Providers Care Waterfront Director Name Role Phone Jean Munoz MD Primary Care Provider Manny Rizzo MD Unavailable Afia Valle MD Unavailable Jesi Leong Unavailable [phone] Reason for Visit * Reason Comments Medications Refill Encounter Details Date Type Department Care Team (Late st Contact Info) Description 11/06/2022 Refill [facility] Medicine [facility] 3 [place] [address] Jean Munoz MD [address] [place] [address] Medications Refill Social History Tobacco [...] twice daily. 100 Each 3 11/06/2022 10/06/2023 ONETOUCH ULTRA TEST test stripsIndications:Impaire d glucose tolerance TEST 2 TIMES DAILY. 200 Each 3 11/06/2022 10/06/2023 documented in this encounter Miscellaneous Notes * Telephone Encounter - Nata Pineda - 11/06/2022 1024 EST Medication(s) Requested: Test strips and lancets Preferred Pharmacy:[facility] Is patient out of medication? Yes Last Refill Date: 2021 Last Visit Date with Ordering Provider: Visit date not found Next Non-Acute Visit Date Scheduled with Care Team: 11/10/2022 Nata Pineda 11/06/2022 10:24 documented in this encounter Plan of Treatment Upcoming Encounters Date Type Department Care Team (Late st Contact Info) Description 06/29/2024 14:15 EDT Office Visit [facility] [address] [place] [address] Jean Munoz MD [address] [place] [address] documented as of this encounter Visit Diagnoses Diagnosis Impaired glucose tolerance- Primary Impaired glucose tolerance test Screening for osteoporosis- Primary Special screening for osteoporosis Primary narcolepsy without cataplexy Chronic pain syndrome Chronic low back pain Lumbago Chronic use of opiate for therapeutic purpose Pain medication agreement Encounter for long-term (current) use of other medications Screen for colon cancer Special screening for malignant neoplasms, colon documented in this encounter Discontinued Medications Medication Sig Discontinue Reason Start Date End Da te blood glucose (BLOOD GLUCOSE TEST) test stripsIndications:Impaire d glucose tolerance 1 Strip by misc (non-drug; combo route) route 2 times daily. 07/09/2021 11/06/2022 documented as of this encounter Care Teams Waterfront Director Relationship Specialty Start Date End Date Jean Munoz MD [address] [place] [address] PCP - General 12/31/08 Manny Rizzo MD [address] [place] [phone] 04/20/10 Afia Valle MD [address] [place] [address], [facility] 2 [place] [phone] Care Team Radiation Oncology 07/02/21 Jesi Leong, [facility] [address] [place] [phone] Behavioral Health Lead Pressman Roto Gravure PrintingLead Assistant Manager Care 10/19/22 01/23/24 documented as of this encounter
--- OUTSIDE RECORDS SUMMARY | 2024-06-10 07:06 | XMS_ITS | Encounter Summary ---
Author Organization [facility] Address [address] [place] [address] Care Team Providers Care Carpenter'S Helper Name Role Phone Jean Munoz MD Primary Care Provider Manny Rizzo MD Unavailable Afia Valle MD Unavailable Jesi Leong REST ROOM MAID Unavailable Reason for Visit * Reason Comments Anxiety Depression Encounter Details Date Type Department Care Team (Late st Contact Info) Description 10/27/2022 13:30 EST Telemedicine [facility] Family Medicine [facility] [address] [place] [address] Jesi Leong REST ROOM MAID [address] [place] [address] Anxiety (Primary Dx) Social History [...] place to sleep or slept in a retirement (including now)? No 07/30/2022 Interpersonal Safety Answer [...] this encounter Progress Notes * Jesi Leong, REST ROOM MAID - 10/27/2022 1330 EST [facility] Behavioral Health Founder And Chief Executive Officer Follow Up Note Appointment took place via televideo Updates/[place] Setting Symptom check Review homework Connecting to Women's group Behavioral Health Screen - PHQ and HEYDI 12/24/2021 10/19/2022 PHQ-9 26 17 HEYDI-7 21 20 Treatment Updates Psychopharmacotherapy: No changes Cognitive/Mood/Behavioral: ??? Reports past two days out of bed; prior had been sleeping most days. States weather has helped as well as ability to cook. Notes her first good meal since she got there (Aug 20). Enjoyed pork medallions, asparagus and potato skins. Reflecting with gratitude and future hope to continue to cook as means of purpose. Making brother bland's pie and quiche. ??? Sat outside yesterday quite a while, natural light and air helpful. ??? While depressive symptoms slightly decreased, feels anxiety remains same. States anxiety ever present. Intellectually noting feel free related to relationship with estranged . The concern about the future remains. Desires to return to a move fun loving, spontaneous self. Go back to my core. ??? Discussed other means of motivation - morning ritual (hot cocoa or chocolate milk), luba art, shaggy. ??? Reviewed Strengths inventory today, Liset reflects on building her confidence back. Encouraged her to write out all the strengths she identifies with on one paper and post somewhere she will see it daily. ??? Liset did phone [facility] but hasn't received call back about their women's group. She plans to callagain. ??? Next visit we will discuss her Values Inventory. Care Management: ??? Reviewed upcoming visits with this caption writer ??? Reviewed visit in early December with Dr. Munoz. Summary: Stage of Change: Action Liset presents as planned, she's engaged and insightful throughout visit. Liset's symptoms of depression have reduced, however, her anxiety remains consistent. Liset is experiencing uncertainty of future, in context of housing and financial stressors. Encourage her to continue to work with her [facility] team. Liset might benefit from ongoing outpatient counseling, however, she wishes to continue in this PCMHI model at this time to address her mood and anxiety. Plan: ??? Recommended Level of Care: Brief Intervention, Outpatient Psychotherapy ??? Treatment Plan: Behavioral Activation, Cognitive Restructuring and Values Exploration ??? Planned Frequency: Biweekly ??? Visit 2 of anticipated 10 to 12 Visits. ??? Skills Practice: PHQ and HEYDI for 11/10; strengths - write out on one sheet and post in room; engage in one pleasant activity per day. Try calling re: Women's Group again. ??? Follow Up: 11/10/2022 at 130pm ??? Referrals: None at this time. ??? Discuss with Psychiatric Sweatband Cutting Machine Operator: Not at this time. Time Spent: 30 min documented in this encounter Plan of Treatment Upcoming Encounters Date Type Department Care Team (Late st Contact Info) Description 06/29/2024 14:15 EDT Office Visit [address] [address] Jean Munoz MD [address] [place] [phone] documented as of this encounter Visit [...] colon documented in this encounter Care Teams Carpenter'S Helper Relationship Specialty Start Date End Date Jean Munoz MD [address] [place] [phone] PCP - General 12/31/08 Manny Rizzo MD [address] [place] [phone] 04/20/10 Afia Valle MD 111 [facility] 2 [place] [phone] MD Care Team Radiation Oncology 07/02/21 Jesi Leong, [facility] [address] [place] [address] Behavioral Health Founder And Chief Executive OfficerDirect Care Supervisor Care 10/19/22 01/23/24 documented as of this encounter
--- OUTSIDE RECORDS SUMMARY | 2024-06-10 07:06 | XMS_ITS | Encounter Summary ---
Author Organization [facility] Address [address] [place] [address] Care Team Providers Care Experimental Preflight Mechanic Name Role Phone Jean Munoz MD Primary Care Provider Manny Rizzo MD Unavailable Afia Valle MD Unavailable Jesi Leong WRESTLING COACH Unavailable [phone] Encounter Details Date Type Department Care Team (Late st Contact Info) Description 11/26/2022 Documentation Visit [facility] [address] [place] [address] Jesi Leong WRESTLING COACH [address] [place] [address] Social History Tobacco Use Types [...] Progress Notes * Jesi Leong LICSW - 11/26/2022 1531 EDT Primary Care Mental Health Integration Psychiatric Bilingual Kindergarten Teacher Recommendation Please see recommendation below for your treatment consideration. Date of Recommendation: 11/26/22 Referring Provider: Dr. Munoz PCP: Dr. Munoz Psychiatric Bilingual Kindergarten Teacher: Dr. Hatch Recommendation: Discussed Liset's assertion that Buspar is not helpful. Concern for anxiety / panic symptoms. Dr. Hatch states due to Liset being prescribed opiates, cannot suggest benzodiazapine medication. Dr. Hatch suggests need to treat Liset's sleep apnea, she shares for untreated sleep apnea, body releases flight / fight hormones while in sleep, these stress hormones contribute to anxiety / panic symptoms in day. She suggests Liset follow up with Sleep Medicine. Also, Dr. Hatch notes methylphenidate can cause anxiety symptoms, could explore a long acting stimulant to treat her narcolepsy or trial medication Modafinil. Other thought is trial of Clonidine totarget PTSD flight / fight symptoms. Liset is already at max dose of Cymbalta. documented in this encounter Plan of Treatment Upcoming Encounters Date Type Department Care Team (Late st Contact Info) Description 06/29/2024 14:15 EDT Office Visit [address] [address] Jean Munoz MD [address] [place] [address] documented as of this encounter Visit Diagnoses Not on filedocumented in this encounter Care Teams Experimental Preflight Mechanic Relationship Specialty Start Date End Date Jean Munoz MD [address] [place] [address] PCP - General 12/31/08 Manny Rizzo MD [address] [place] [address] 04/20/10 Afia Valle MD [address] [place] [address], [address] [place] [phone] MD Care Team Radiation Oncology 07/02/21 Jesi Leong, [facility] [address] [place] [address] Behavioral Health Coat MakerBeading Sawyer Care 10/19/22 01/23/24 documented as of this encounter
--- OUTSIDE RECORDS SUMMARY | 2024-06-10 07:06 | XMS_ITS | Encounter Summary ---
Author Organization [facility] Address [address] [place] [address] Care Team Providers Care Skein Yarn Dyer Helper Name Role Phone Jean Munoz MD Primary Care Provider Manny Rizzo MD Unavailable Afia Valle MD Unavailable Jesi Leong Unavailable [phone] Reason for Referral * Radiology Services (Routine/Next Available) - Authorization Not Required Specialty Diagnoses / Procedures [facility] Referred To Contact Diagnoses Malignant neoplasm of upper lobe, right bronchus or lung (HCC-CMS) Procedures CT CHEST WO CONTRAST CHG DIAGNOSTIC COMPUTED TOMOGRAPHY THORAX W/O CNTRST Afia Valle MD [address] [facility] [address] [place] [address] [facility] Referral ID Status Reason Start Date Expiration Date Visits Requested Visits Authorized [id number] Authorization Not Required 01/19/2023 1 1 Reason for Visit * Reason Comments Lung Cancer Follow up Encounter Details Date Type Department Care Team (Late st Contact Info) Description 01/19/2023 12:00 EDT Office Visit [facility] Radiation Oncology - Main [address] [phone] Afia Valle MD [address] [facility], [address] [place] [address] Malignant neoplasm of upper lobe, right bronchus or lung (HCC-CMS) (Primary Dx) Social History Tobacco Use [...] Sign Reading Time Taken Comments Blood Pressure 100/66 01/19/2023 1159 EDT Pulse 76 01/19/2023 1159 EDT Temperature 36.6 ??C (97.8 ??F) 01/19/2023 1159 EDT Respiratory Rate - - Oxygen Saturation 97% 01/19/2023 1159 EDT Inhaled Oxygen Concentration - - Weight 67.1 kg (148 lb) 01/19/2023 1159 EDT Height 162.5 cm (5' 3.98) 01/19/2023 1159 EDT Body Mass Index 25.42 01/19/2023 1159 EDT documented in this encounter Functional Status [...] Dispensed Refills Start Date End Da te benzonatate (TESSALON) 100 mg capsule Take 1 Capsule by mouth 3 times daily as needed for Cough. 80 Capsule 3 01/19/2023 lidocaine (XYLOCAINE) 2 % solution 5 ML, mixed with 5 ml mylanta or maalox, swish and swallow for swallowing pain. 100 mL 2 01/19/2023 10/06/2023 documented in this encounter Progress Notes * Afia Valle MD - 01/19/2023 1200 EDT Patient Name: Liset Viera (1960) Patient Provider: Afia Valle MD Date of service: 01/19/2023 Radiation Oncology Follow-Up Note Identification/Chief Compliant Liset Viera is a 62 y.o. female with COPD and lung cancer, [id number] at least stage IIB NSCLC ofthe right upper lobe with an intrapulmonary node s/p EBRT to 60 Gy in 15 fractions completed 08/20/21. Ms. Viera presents today for routine follow-up. Interval History Ms. Viera has ongoing chronic dry cough, ALEJANDRE and heartburn. Her pulmonary referral was re-placedwhen I saw her last July, and she is undergoing upcoming spirometry and evaluation. CT CHEST WO CONTRAST 01/18/2023 Impression 1. 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 2. Stable borderline enlarged right lower paratracheal lymph nodes. 3. No other significant interval changes from the studies of July,. Pain scale 0 / 10 Performance Status: 1: Restricted in physically strenuous activity but ambulatory and able to carryout work of a light or sedentary nature, e.g., light house work, office work General: Well-appearing female in no apparent distress. HEENT: Anicteric sclera. Pupils equally round and reactive to light and accommodation. Extra-ocularmovements intact. Respiratory: Coarse BS on the right, but otherwise clear. No wheezes. Abdomen: Non-distended. Extremities: No lower extremity edema. MSK: Moves all extremities without difficulty. Neurologic: Cranial nerves II through XII grossly intact. 5/5 symmetric strength of the bilateral upper and lower extremities. No dysarthria or dysmetria. Dermatologic: No skin rashes, or jaundice. Assessment/Plan Ms. 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 Will order 6 month interval scan. We again discussed her cough. I do not think she has active pneumonitis but she has post treatment fibrosis which can certainly impact her breathing in the setting of severe COPD. Thankfully she is now scheduled to see pulmonary with spirometry evaluation. For now, I will refill her Kiel Reyes she does think help. I spent a total of 20 minutes on the date of this encounter meeting with the patient and reviewing documentation/coordinating care as described in the above note. No procedures were performed at the time of the visit. Afia Valle MD Pattern Wheel Maker of Radiation Oncology [facility] documented in this encounter Plan of Treatment Upcoming Encounters Date Type Department Care Team (Late st Contact Info) Description 06/29/2024 14:[address] [facility] [address] [place] [address] Jean Munoz MD [address] [place] [address] documented as of this encounter Results * CT CHEST WO [...] changes from the studies of Jan, 2023. [id number] Narrative 08/25/2023 12:[address] CHEST WO [...] changes from the studies of Jan, 2023. [id number] Afia Valle MD IMG CT ORDERAB LES documented in this encounter Visit Diagnoses Diagnosis Malignant neoplasm of upper lobe, right bronchus or lung (HCC-CMS)- Primary Malignant neoplasm of upper lobe, right bronchus or lung (HCC-CMS) Screening for osteoporosis- Primary Special [...] swish and swallow for swallowing pain. Reorder 08/19/2021 01/19/2023 documented as of this encounter Care Teams Skein Yarn Dyer Helper Relationship Specialty Start Date End Date Jean Munoz MD [address] [place] [address] PCP - General 12/31/08 Manny Rizzo MD [address] [place] [phone] 04/20/10 Afia Valle MD 111 [facility], [address] [place] [phone] Care Team Radiation Oncology 07/02/21 Jesi Leong [facility] [address] [place] [address] Behavioral Health ChairmanFisher Diver Net Care 10/19/22 01/23/24 documented as of this encounter
--- OUTSIDE RECORDS SUMMARY | 2024-06-10 07:06 | XMS_ITS | Encounter Summary ---
Author Organization [facility] Address [address] [place] [address] Care Team Providers Care Ladle Filler Name Role Phone Jean Munoz MD Primary Care Provider Manny Rizzo MD Unavailable Afia Valle MD Unavailable Jesi Leong Unavailable Reason for Visit * Reason Comments Medications Refill Encounter Details Date Type Department Care Team (Late st Contact Info) Description 11/07/2022 Refill [facility] Medicine [facility] [address] [place] [address] Jean Munoz MD [address] [place] [address] Medications Refill Social History Tobacco [...] Dispensed Refills Start Date End Da te doxycycline (VIBRA-TABS) 100 mg tabletIndications:Rosace a TAKE 1 TABLET BY MOUTH EVERY DAY for rosacea 90 Tablet 3 11/09/2022 10/06/2023 documented in this encounter Miscellaneous Notes * Telephone Encounter - Fani Dickens RN - 11/09/2022 1151 EST Requested Prescriptions Pending Prescriptions Disp Refills ??? doxycycline (VIBRA-TABS) 100 mg tablet [Pharmacy Med Name: Doxycycline Hyclate Oral Tablet 100 MG] 90 Tablet 0 Sig: TAKE 1 TABLET BY MOUTH EVERY DAY for rosacea Pharmacy: [facility] Last Refill Date: 02/05/22 Last Visit Date: 10/01/22 Next Non-Acute Visit Date Scheduled with Care Team: Yes. 12/15/22 Pended rx, routing to PCP for approval. FANI SPANGLER RN 11/09/2022 11:51 documented in this encounter Plan of Treatment Upcoming Encounters Date Type Department Care Team (Late st Contact Info) Description 06/29/2024 14:15 EDT Office Visit [facility] [address] [place] [address] Jean Munoz MD [address] [place] [phone] documented as of this encounter Visit Diagnoses Diagnosis Rosacea- Primary Screening for osteoporosis- Primary Special screening [...] Discontinue Reason Start Date End Da te doxycycline (VIBRA-TABS) 100 mg tabletIndications:Rosace a TAKE 1 TABLET BY MOUTH EVERY DAY for rosacea 02/05/2022 11/09/2022 documented as of this encounter Care Teams Ladle Filler Relationship Specialty Start Date End Date Jean Munoz MD [address] [place] [address] PCP - General 12/31/08 Manny Rizzo MD [address] [place] [address] 04/20/10 Afia Valle MD [address] [place] [address], [facility] 2 [place] [phone] Care Team Radiation Oncology 07/02/21 Jesi Leong, [facility] [address] [place] [address] Behavioral Health Comic ArtistArchitectural Modeler Care 10/19/22 01/23/24 documented as of this encounter
--- OUTSIDE RECORDS SUMMARY | 2024-06-10 07:06 | XMS_ITS | Encounter Summary ---
Author Organization [facility] Address [address] [place] [address] Care Team Providers Care Inorganic Chemist Name Role Phone Jean Munoz MD Primary Care Provider Manny Rizzo MD Unavailable Afia Valle MD Unavailable Jesi Leong SOAPSTONER Unavailable [phone] Reason for Visit * Reason Onset Date Comments Coordination Of Care 02/02/2023 Encounter Details Date Type Department Care Team (Late st Contact Info) Description 02/02/2023 Telephone [facility] [address] [place] [address] Jesi Leong SOAPSTONER [address] [place] [address] Coordination Of Care Social History [...] encounter Miscellaneous Notes * Telephone Encounter - Jesi Leong LICSW - 02/02/2023 1535 EDT Primary Care Mental Health Integration Behavioral Health Online Education Manager Encounter 02/02/2023 Time Spent: 5 minutes in Direct and Indirect Collaborative Care Encounter Type: Telephone Encounter Contact: patient Collaborative Care Activities: Missed appointment Summary of Care Provided: This signwriter reached out to Liset by phone at 3:05pm as she did not arrive to our Zoom meeting at 3pmas scheduled. No answer, left detailed message and followed up by text. Stated would plan to see her February 16 unless otherwise communicated. documented in this encounter Plan of Treatment Upcoming Encounters Date Type Department Care Team (Late st Contact Info) Description 06/29/2024 14:15 EDT Office Visit [address] [address] Jean Munoz MD [address] [place] [address] documented as of this encounter Visit Diagnoses Not on filedocumented in this encounter Care Teams Inorganic Chemist Relationship Specialty Start Date End Date Jean Munoz MD [address] [place] [address] PCP - General 12/31/08 Manny Rizzo MD [address] [place] [address] 04/20/10 Afia Valle MD [address] [place] [address] [address] [place] [phone] MD Care Team Radiation Oncology 07/02/21 Jesi Leong, [facility] [address] [place] [address] Behavioral Health Online Education ManagerTrench Pipe Layer Care 10/19/22 01/23/24 documented as of this encounter
--- OUTSIDE RECORDS SUMMARY | 2024-06-10 07:06 | XMS_ITS | Encounter Summary ---
Author Organization [facility] Address [address] [place] [address] Care Team Providers Care Tool And Die Assembler Name Role Phone Jean Munoz MD Primary Care Provider Manny Rizzo MD Unavailable Afia Valle MD Unavailable Jesi Leong SCRATCH BRUSHER Unavailable Reason for Visit * Reason Comments Follow-up Encounter Details Date Type Department Care Team (Late st Contact Info) Description 12/23/2022 13:30 EDT Telemedicine [facility] [address] [place] [address] Jesi Leong SCRATCH BRUSHER [address] [place] [address] Anxiety (Primary Dx) Social History [...] Progress Notes * Jesi Leong LICSW - 12/23/2022 1330 EDT Primary Care Mental Health Integration Behavioral Health Plisse Machine OperatorWelding Machine Tender Note This proposal manager writer was scheduled to meet with Liset on this date via [employer] at 130pm for follow up visit. She joins the Zoom, however, shares she just woke up and continues to be unwell. Has a new round of antibiotics. Not at baseline yet. Hard in one room. We agree to postpone our follow up, see below, in context of Liset's continued illness. Plan: Next visit January 05, 2023 at 1:30pm as planned Time Spent: 5 mins documented in this encounter Plan of Treatment Upcoming Encounters Date Type Department Care Team (Late st Contact Info) Description 06/29/2024 14:15 EDT Office Visit [address] [address] Jean Munoz MD [address] [place] [address] documented as of this encounter Visit [...] colon documented in this encounter Care Teams Tool And Die Assembler Relationship Specialty Start Date End Date Jean Munoz MD [address] [place] [address] PCP - General 12/31/08 Manny Rizzo MD [address] [place] [phone] 04/20/10 Afia Valle MD 111 [facility] 2 [place] [phone] MD Care Team Radiation Oncology 07/02/21 Jesi Leong, [facility] [address] [place] [address] Behavioral Health Plisse Machine OperatorManager Cafe Care 10/19/22 01/23/24 documented as of this encounter
--- OUTSIDE RECORDS SUMMARY | 2024-06-10 07:06 | XMS_ITS | Encounter Summary ---
Author Organization [facility] Address [address] [place] [address] Care Team Providers Care Globe Tester Name Role Phone Jean Munoz MD Primary Care Provider Manny Rizzo MD Unavailable Afia Valle MD Unavailable Jesi Leong Unavailable Reason for Visit * Reason Comments Medications Refill Encounter Details Date Type Department Care Team (Late st Contact Info) Description 12/07/2022 Refill [facility] Medicine [facility] 3 [place] [address] Jean Munoz MD [address] [place] [address] Medications Refill Social History Tobacco [...] FOR MIGRAINE. 9 Tablet 3 12/09/2022 05/31/2023 documented in this encounter Miscellaneous Notes * Telephone Encounter - Jean Munoz MD - 12/09/2022 1023 EDT Rx sent. * Telephone Encounter - Armand Chapman RN - 12/09/2022 0840 EDT Requested Prescriptions Pending Prescriptions Disp Refills ??? SUMAtriptan (IMITREX) 100 mg tablet [Pharmacy Med Name: SUMAtriptan Succinate Oral Tablet 100 MG] 9 Tablet 0 Sig: TAKE 1 TABLET BY MOUTH ONCE NEEDED FOR UP TO 1 DOSE FOR MIGRAINE. Pharmacy: [facility] Last Refill Date: 08/10/22 Last Visit Date: 10/01/22 Next Non-Acute Visit Date Scheduled with Care Team: Yes. 12/15/22 ARMAND CHAPMAN RN 12/09/2022 8:41 documented in this encounter Plan of Treatment Upcoming Encounters Date Type Department Care Team (Late st Contact Info) Description 06/29/2024 14:15 EDT Office Visit [facility] Medicine [facility] 3 [place] [address] Jean Munoz MD [address] [place] [address] documented as of this encounter [...] FOR UP TO 1 DOSE FOR MIGRAINE 08/10/2022 12/09/2022 documented as of this encounter Care Teams Globe Tester Relationship Specialty Start Date End Date Jean Munoz MD [address] [place] [address] PCP - General 12/31/08 Manny Rizzo MD [address] [place] [phone] 04/20/10 Afia Valle MD 111 [facility], [address] [place] [phone] MD Care Team Radiation Oncology 07/02/21 Jesi Leong, [facility] [address] [place] [address] Behavioral Health Tower HandMetalsmith Helper Care 10/19/22 01/23/24 documented as of this encounter
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
--- OUTSIDE RECORDS SUMMARY | 2024-06-10 07:06 | XMS_ITS | Encounter Summary ---
Author Organization [facility] Address [address] [place] [address] Care Team Providers Care Regulatory Associate Name Role Phone Jean Munoz MD Primary Care Provider Manny Rizzo MD Unavailable Afia Valle MD Unavailable [phone] Jesi Leong Unavailable [phone] Reason for Referral * Radiology Services (Routine/Next Available) - Authorization Not Required Specialty Diagnoses / Procedures Referred By [facility] Referred To Contact Diagnoses Malignant neoplasm of upper lobe, right bronchus or lung (HCC-CMS) Procedures CT CHEST WO CONTRAST Afia Valle MD [address] [facility], [address] [place] [address] [facility] Referral ID Status Reason Start Date Expiration Date Visits Requested Visits Authorized [id number] Authorization Not Required 2 1 1 Reason for Visit * Radiology Services (Routine/Next Available) - Authorization Not Required Specialty Diagnoses / Procedures Referred By Contcecille t Referred To Contact Diagnoses Malignant neoplasm of upper lobe, right bronchus or lung (HCC-CMS) Procedures CT CHEST WO CONTRAST Afia Valle MD [address] [facility], [address] [place] [address] [facility] Referral ID Status Reason Start Date Expiration Date Visits Requested Visits Authorized [id number] Authorization Not Required 2 1 1 Encounter Details Date Type Department Care Team (Latest Contact Info) Description 01/18/2023 11:13 EDT - 01/18/2023 23:59 EDT [facility] [address] [place] [address] Malignant neoplasm of upper lobe, right bronchus [...] times daily as needed for Constipation. 09/24/2010 azithromycin (ZITHROMAX) 250 mg tabletIndications:COPD exacerbation (HCC-CMS) Take 2 tablets (500 mg) on day 1, followed by 1 tablet (250 mg) once daily on days 2 through 5. 6 Tablet 12/15/2022 01/27/2023 busPIRone (BUSPAR) 15 mg tabletIndications:Anxi ety Take [...] 01/27/2023 HYDROcodone-acetaminop hen (NORCO) 7.5-325 mg per tablet Take 1 Tablet by mouth every 6 hours for 28 days. For chronic pain. Daily Max: 4 Tablets 112 Tablet 01/04/2023 02/22/2023 HYDROcodone-acetaminop hen (NORCO) 7.5-325 mg per tabletIndications:Golf Superintendent majo 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 For chronic pain. Daily Max: 4 Tablets 112 Tablet 02/27/2023 02/17/2023 HYDROcodone-acetaminop hen (NORCO) 7.5-325 mg per tabletIndications:Golf Superintendent majo pain syndrome,Chronic use of opiate for [...] 3 11/23/2022 10/06/2023 lancets Brand: One Touch [employer], check blood glucose twice daily. 100 Each [...] 2 08/19/2021 01/19/2023 methocarbamoL (ROBAXIN) 500 mg tabletIndications:Golf Superintendent majo pain syndrome Take 2 Tablets by [...] 1 03/11/2022 03/29/2023 roflumilast (DALIRESP) 500 mcg tabletIndications:Golf Superintendent majo obstructive pulmonary disease, unspecified COPD type (HCC-CMS) Take 1 Tablet by mouth daily. 90 Tablet 3 11/26/2021 02/22/2023 rOPINIRole (REQUIP) 2 mg tabletIndications:Rest less legs syndrome TAKE 1 TABLET BY MOUTH NIGHTLY AT BEDTIME 90 Tablet 3 01/04/2023 10/06/2023 SPIRIVA RESPIMAT 1.25 mcg/actuation inhalerIndications:Chr onic obstructive pulmonary disease, unspecified COPD type (HCC-CMS) INHALE TWO PUFFS BY MOUTH DAILY DIRECTED 12 g 3 02/01/2020 01/27/2023 SUMAtriptan (IMITREX) 100 mg tabletIndications:Migr lu without status migrainosus, not intractable, unspecified migraine type TAKE 1 TABLET BY MOUTH ONCE NEEDED FOR UP TO 1 DOSE FOR MIGRAINE. 9 Tablet 3 12/09/2022 05/31/2023 tamsulosin (FLOMAX) 0.4 mg capsuleIndications:Hes itancy Take [...] Office Visit [facility] [address] [place], [place] [id number] Jean Munoz MD [address] [place] [phone] documented as of this encounter Procedures Procedure Name Priority Date/Time Associated Diagnosis Comments CT CHEST WO CONTRAST Routine 01/18/2023 11:25 EDT Malignant neoplasm of upper lobe, right bronchus or lung (HCC-CMS) documented in this encounter Results * CT CHEST WO CONTRAST (01/18/2023 11:25 EDT) Anatomical Region Laterality Modality Chest Computed Tomogra phy 01/18/2023 12:1 6 EDT Impressions 01/18/2023 12:16 EDT 1. ??Evolving changes of radiation fibrosis within the central right upper lobe of lung without findings of disease recurrence. 2. ??Stable borderline enlarged right lower paratracheal lymph nodes. 3. ??No other significant interval changes from the studies of July,. Narrative 01/18/2023 12:[address] CHEST WO CONTRAST ??01/18/2023 11:30 AM Clinical History/Comments: Non-small cell lung cancer (NSCLC), non-metastatic, assess treatment response; RUL lung cancer s/p xrt 09/02 Technique: CT scan of the chest was performed without contrast material. Thin section reconstructions were performed. Comparison: Chest CT July 21, 2022. Findings: Lower neck: Patient has undergone prior lower anterior cervical spinal fusion. Is a stable 7 mm right lower cervical lymph nodes identified unchanged from prior examination. Mediastinum and hazel (non-vascular): Stable right lower paratracheal 1.1 cm diameter lymph node. Left lower paratracheal nodular opacities are seen previously to reflect dilated bronchial artery branches. There is a small hiatal hernia. Cardiovascular: ??Mild coronary artery atherosclerotic and mild aortic atherosclerotic calcification. Lungs and airways: ??Trachea appears normal. Again [...] upper lobe as seen previously without change. Pleura: No pleural effusion is seen. Again there is some irregular nodular thickening of the upper right oblique fissure but this is unchanged from prior examination. Upper abdomen (limited to upper abdomen, not optimized for abdominal imaging): Patient is status post hiatal hernia repair. There is a cyst within the upper pole the left kidney, unchanged. Bones and chest wall soft tissues: ??Again the patient is status post lower anterior cervical spinal fusion. There are no other bony abnormalities identified. The soft tissues of the chest wall are unremarkable. ?? Procedure Note Jerad Kraft MD - 01/18/2023 CT CHEST WO CONTRAST 01/18/2023 11:30 AM Clinical History/Comments: Non-small cell lung cancer (NSCLC), non-metastatic, assess treatmentresponse; RUL lung cancer s/p xrt 09/02 Technique: CT scan of the chest was performed without contrast material. Thin sectionreconstructions were performed. Comparison: Chest CT July 21, 2022. Findings: Lower neck: Patient has undergone prior lower anterior cervical spinalfusion. Is a stable 7 mm right lower cervical lymph nodes identifiedunchanged from prior examination. Mediastinum and hazel (non-vascular): Stable right lower paratracheal 1.1cm diameter lymph node. Left lower paratracheal nodular opacities are seenpreviously to reflect dilated bronchial artery branches. There is a smallhiatal hernia. Cardiovascular: Mild coronary artery atherosclerotic and mild aorticatherosclerotic calcification. Lungs and airways: Trachea appears normal. Again noted is a coalescingopacity within the central right upper lobe of lung consistent withradiation fibrosis, associated with some nodular thickening of the upperportion of the right oblique fissure which has not changed. There is nosignificant change in the cystic lesion within the anterolateral leftupper lobe in the subpleural region. Moderate emphysema is again seenbilaterally. There is diffuse airways thickening likely reflecting chronicbronchitis. There is some mild thickening of the right upper lobe bronchusand its segmental branches which also showed occlusion of the apicalsegmental bronchus to the right upper lobe as seen previously withoutchange. Pleura: No pleural effusion is seen. Again there is some irregular nodularthickening of the upper right oblique fissure but this is unchanged fromprior examination. Upper abdomen (limited to upper abdomen, not optimized for abdominalimaging): Patient is status post hiatal hernia repair. There is a cystwithin the upper pole the left kidney, unchanged. Bones and chest wall soft tissues: Again the patient is status post loweranterior cervical spinal fusion. There are no other bony abnormalitiesidentified. The soft tissues of the chest wall are unremarkable. IMPRESSION 1. Evolving changes of radiation fibrosis within the central right upperlobe of lung without findings of disease recurrence. 2. Stable borderline enlarged right lower paratracheal lymph nodes. 3. No other significant interval changes from the studies of . Afia Valle MD IMG CT ORDERAB LES documented in this encounter Visit Diagnoses Diagnosis Malignant neoplasm of upper lobe, right bronchus or lung ([facility]) Screening for osteoporosis- Primary Special screening for osteoporosis Primary narcolepsy without cataplexy Chronic pain syndrome Chronic low back pain Lumbago Chronic use of opiate for therapeutic purpose Pain medication agreement Encounter for long-term (current) use of other medications Screen for colon cancer Special screening for malignant neoplasms, colon documented in this encounter Care Teams Regulatory Associate Relationship Specialty Start Date End Date Jean Munoz MD [address] [place] [phone] PCP - General 12/31/08 Manny Rizzo MD [address] [place] [phone] 04/20/10 Afia Valle MD [address] [place] [address] 2 [place] [phone] Care Team Radiation Oncology 07/02/21 Jesi Leong, [facility] [address] [place] [phone] Behavioral Health Lead TellerAuto Polisher Care 10/19/22 01/23/24 documented as of this encounter
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
--- OUTSIDE RECORDS SUMMARY | 2024-06-10 07:07 | XMS_ITS | Encounter Summary ---
Author Organization [facility] Address [address] [place] [address] Care Team Providers Care Rock Mason Name Role Phone Jean Munoz MD Primary Care Provider Manny Rizzo MD Unavailable Afia Valle MD Unavailable [phone] Jesi Leong Unavailable [phone] Reason for Visit * Reason Onset Date Comments Letter 07/30/2022 Encounter Details Date Type Department Care Team (Late st Contact Info) Description 07/30/[address] [facility] [address] [place] [address] Jean Munoz MD [address] [place] [address] Letter Social History Tobacco Use [...] 07/30/2022 PHQ-2 Answer Date Recorded PHQ-2 SUBTOTAL 6 [...] Telephone Encounter - Kaitlyn Montero LPN - 07/30/2022 1452 EST Letter printed out, signed by Dr. Munoz and placed in the mail for patient. KAITLYN MONTERO LPN * Telephone Encounter - Jean Munoz MD - 07/30/2022 1444 EST All set, thanks. * Telephone Encounter - Kaitlyn Montero LPN - 07/30/2022 1435 EST Letter started and routed to Dr. Munoz to complete. KAITLYN MONTERO LPN * Telephone Encounter - Kaitlyn Montero LPN - 07/30/2022 1430 EST ----- Message from Jean Munoz MD sent at 07/30/2022 14:07 EST ----- Regarding: FW: Ltr Please pend letter, thanks! ----- Message ----- From: Jesi Leong LICSW Sent: 07/30/2022 14:06 EST To: Jean Munoz MD Subject: Beck Hutchins has to be out of her current housing by August 13. Could you please write a letter of reasonable accommodation for her emotion support animals? The language: Please accept this letter requesting a reasonable accommodation on behalf of my patient, Liset Viera, 1960. Liset is a person with a mental health disability as defined by the Fair HousingAct and the Americans with Disabilities Act. Liset would suffer undo duress should she have to leaveher emotional support animals behind due to her housing situation. Please provide Liset a reasonable accommodation allowing her to reside with her emotional support cats, as these cats have supported Liset's mental health in a beneficial and therapeutic way. When the letter is done and signed - please mail a copy to Liset and be sure a copy is kept in her chart. Thanks!! documented in this encounter Plan of Treatment Upcoming Encounters Date Type Department Care Team (Late st Contact Info) Description 06/29/2024 14:15 EDT Office Visit [facility] [address] [place] [address] Jean Munoz MD [address] [place] [address] documented as of this encounter Visit Diagnoses Not on filedocumented in this encounter Care Teams Rock Mason Relationship Specialty Start Date End Date Jean Munoz MD [address] [place] [address] PCP - General 12/31/08 Manny Rizzo MD [address] [place] [phone] 04/20/10 Afia Valle MD [address] [place] [address], [facility] [address] [place] [phone] Care Team Radiation Oncology 07/02/21 Jesi Leong, [facility] [address] [place] [address] Contracts Paralegal 12/24/21 09/20/22 documented as of this encounter
--- OUTSIDE RECORDS SUMMARY | 2024-06-10 07:07 | XMS_ITS | Encounter Summary ---
Author Organization [facility] Address [address] [place] [address] Care Team Providers Care Wooden Furniture Polisher Name Role Phone Jean Munoz MD Primary Care Provider Manny Rizzo MD Unavailable Afia Valle MD Unavailable Jesi Leong Unavailable [phone] Reason for Visit * Reason Onset Date Comments Prior Auth, Medication 08/05/2022 Fexonfena dine Encounter Details Date Type Department Care Team (Late st Contact Info) Description 08/05/2022 Telephone [facility] [address] [place] [address] Jean Munoz MD [address] [place] [address] Prior Auth, Medication (Fexonfenadine) Social History Tobacco Use Types Packs/Day Years [...] Telephone Encounter - Teetee Marshall LPN - 08/07/2022 0809 EST Medication: Fexofenadine Insurance Co: Medicaid Approval # (if applicable): [id number] Approval dates: until 01/05/2023 Quantity/Days Supply: Name of Pharmacy notified: [facility] Plan limit is 30 days * Telephone Encounter - Teetee Marshall LPN - 08/05/2022 1015 EST Prior authorization initiated via [facility] for Fexofenadine. Awaiting response. documented in this encounter Plan of Treatment Upcoming Encounters Date Type Department Care Team (Late st Contact Info) Description 06/29/2024 14:15 EDT Office Visit [facility] [address] [place], [place] [id number] Jean Munoz MD [address] [place] [address] documented as of this encounter Visit Diagnoses Not on filedocumented in this encounter Care Teams Wooden Furniture Polisher Relationship Specialty Start Date End Date Jean Munoz MD [address] [place] [address] PCP - General 12/31/08 Manny Rizzo MD [address] [place] [phone] 04/20/10 Afia Valle MD [address] [facility] 2 [place] [address] Care Team Radiation Oncology 07/02/21 Jesi Leong, [facility] [address] [place] [address] Retail Tire Sales Manager 12/24/21 09/20/22 documented as of this encounter
--- OUTSIDE RECORDS SUMMARY | 2024-06-10 07:07 | XMS_ITS | Encounter Summary ---
Author Organization [facility] Address [address] [place] [address] Care Team Providers Care Entry Level Assistant Manager Name Role Phone Jean Munoz MD Primary Care Provider Manny Rizzo MD Unavailable Afia Valle MD Unavailable Jesi Leong Unavailable [phone] Reason for Visit * Reason Comments Medications Refill Encounter Details Date Type Department Care Team (Late st Contact Info) Description 07/15/2022 Refill [facility] [address] [place] [address] Jean Munoz MD [address] [place] [address] Medications Refill Social History Tobacco [...] slept in a long term (including now)? No 04/24/2021 Interpersonal Safety Answer [...] End Da te zolpidem (AMBIEN) 5 mg tabletIndications:Insomn ia, unspecified type take 1 tablet by mouth nightly at bedtime for insomnia *daily limit 1 tab 28 Tablet 5 07/18/2022 10/01/2022 zolpidem (AMBIEN) 5 mg tabletIndications:Insomn ia, unspecified type take 1 tablet by mouth nightly at bedtime for insomnia *daily limit 1 tab 28 Tablet 5 07/20/2022 07/17/2022 documented in this encounter Miscellaneous Notes * Telephone Encounter - Armand Chapman RN - 07/17/2022 0925 EDT Images from the original note were not included. Routing to provider to review - pended for a start date of this Wednesday. ARMAND CHAPMAN RN 07/17/2022 9:27 * Telephone Encounter - Dot Patel - 07/17/2022 0916 EDT Patient is calling, the start date on the Zolpidem script is Wednesday. Patient has to be able to pickup on Wednesday with her other medications. This is when she can get a ride. * Telephone Encounter - Yvonne Dumont - 07/16/2022 0927 EDT Requested Prescriptions Pending Prescriptions Disp Refills ??? zolpidem (AMBIEN) 5 mg tablet [Pharmacy Med Name: Zolpidem Tartrate Oral Tablet 5 MG] 28 Tablet0 Sig: take 1 tablet by mouth nightly at bedtime for insomnia *daily limit 1 tab [id number] - [place], [place] - [address] Confirmed Pharmacy? [facility] Request Patient out of medication? Unknown Last Refill Date: 05/25/22 Refills left? (explain exceptions requiring early refill) No Recent Visits Date Type Provider Dept 04/24/21 Office Visit Jean Munoz MD [facility] Showing recent visits within past 540 days with a meds authorizing provider and meeting all other requirements Future Appointments No visits were found meeting these conditions. Showing future appointments within next 150 days with a meds authorizing provider and meeting all other requirements Future appointment: Other recently seen YVONNE DUMONT RN 07/16/2022 9:27 documented in this encounter Plan of Treatment Upcoming Encounters Date Type Department Care Team (Late st Contact Info) Description 06/29/2024 14:15 EDT Office Visit [facility] [address] [place] [address] Jean Munoz MD [address] [place] [address] documented as of this encounter Visit [...] End Da te zolpidem (AMBIEN) 5 mg tabletIndications:Insomn ia, unspecified type TAKE 1 TABLET BY MOUTH NIGHTLY AT BEDTIME for insomnia *daily limit 1 tablet 05/25/2022 07/16/2022 zolpidem (AMBIEN) 5 mg tabletIndications:Insomn ia, unspecified type take 1 tablet by mouth nightly at bedtime for insomnia *daily limit 1 tab Reorder 07/20/2022 07/17/2022 documented as of this encounter Care Teams Entry Level Assistant Manager Relationship Specialty Start Date End Date Jean Munoz MD [address] [place] [address] PCP - General 12/31/08 Manny Rizzo MD [address] [place] [address] 04/20/10 Afia Valle MD [address] [facility] [address] [place] [phone] MD Care Team Radiation Oncology 07/02/21 Jesi Leong, [facility] [address] [place] [address] Plant Controls Specialist 12/24/21 09/20/22 documented as of this encounter
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
--- OUTSIDE RECORDS SUMMARY | 2024-06-10 07:07 | XMS_ITS | Encounter Summary ---
Author Organization [facility] Address [address] [place] [address] Care Team Providers Care [employer] Member Name Role Phone Jean Munoz MD Primary Care Provider Manny Rizzo MD Unavailable Afia Valle MD Unavailable Reason for Visit * Reason Comments Chronic Pain Encounter Details Date Type Department Care Team (Late st Contact Info) Description 10/01/2022 16:30 EST Telemedicine [facility] [address] [place] [address] Jean Munoz MD [address] [place] [phone] Chronic pain syndrome (Primary Dx); Chronic use of opiate for therapeutic purpose; Pain medication agreement; Insomnia, unspecified type; Primary narcolepsy without cataplexy Social History Tobacco Use Types Packs/Day Years [...] place to sleep or slept in a intermediate (including now)? No 07/30/2022 Interpersonal Safety Answer [...] 5 mg 28 Tablet 5 10/01/2022 03/03/2023 HYDROcodone-acetaminophe n (NORCO) 7.5-325 mg per tabletIndications:Chroni c 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 For chronic pain. Daily Max: 4 Tablets 112 Tablet 10/10/2022 11/07/2022 HYDROcodone-acetaminophe n (NORCO) 7.5-325 mg per tabletIndications:Chroni c pain syndrome,Chronic use of opiate for therapeutic purpose,Pain medication agreement Take 1 Tablet by mouth every 6 hours as needed for up to 28 days for Pain. For chronic pain. Daily Max: 4 Tablets 112 Tablet 11/07/2022 12/15/2022 HYDROcodone-acetaminophe n (NORCO) 7.5-325 mg per tabletIndications:Chroni c pain syndrome,Chronic use of opiate for therapeutic purpose,Pain medication agreement Take 1 Tablet by mouth every 6 hours as needed for up to 28 days for Pain. For chronic pain. Daily Max: 4 Tablets 112 Tablet 12/05/2022 12/15/2022 methylphenidate HCl (RITALIN;METHYLIN) 10 mg tabletIndications:Primar y narcolepsy without cataplexy Take 1 Tablet by mouth daily for 28 days. For narcolepsy. Daily Max: 10 mg 28 Tablet 10/10/2022 11/24/2022 methylphenidate HCl (RITALIN;METHYLIN) 10 [...] 28 Tablet 12/05/2022 11/24/2022 methylphenidate HCl (RITALIN;METHYLIN) 20 mg tabletIndications:Primar y narcolepsy without cataplexy Take 2 Tablets by mouth daily for 28 days. For narcolepsy. Daily Max: 40 mg 56 Tablet 10/10/2022 11/24/2022 methylphenidate HCl (RITALIN;METHYLIN) 20 mg tabletIndications:Primar y narcolepsy without cataplexy Take 2 Tablets by mouth daily for 28 days. For narcolepsy. Daily Max: 40 mg 56 Tablet 11/07/2022 11/24/2022 methylphenidate HCl (RITALIN;METHYLIN) 20 mg tabletIndications:Primar y narcolepsy without cataplexy Take 2 Tablets by mouth daily for 28 days. For narcolepsy. Daily Max: 40 mg 56 Tablet 12/05/2022 11/24/2022 documented in this encounter Progress Notes * Kaitlyn Montero LPN - 10/01/2022 1630 EST The [place] Pres[facility] Monitoring System query has been completed. Methylpenidate 20 mg: Filled: 09/12/22 Quanttity: 56 tabs for 28 days Methylphenidate 10 mg Filled: 09/12/22 Quantity: 28 tabs for 28 days Hydrocodone-Acetaminophen 7.5-325 mg: Filled: 09/12/22 Quantity: 112 tabs for 28 days Zolpidem 5 mg: Filled: 09/12/22 Quantity: 28 tabs for 28 days KAITLYN MONTERO LPN * Kaitlyn Montero LPN - 10/01/2022 1630 EST The concept of ???Telemedicine?? has been [...] MONTERO LPN * Jean Munoz MD - 10/01/2022 1630 EST Primary Care Video Visit Assessment & Plan Diagnoses and all orders for this visit: Chronic pain syndrome - HYDROcodone-acetaminophen (NORCO) 7.5-325 mg per tablet - HYDROcodone-acetaminophen (NORCO) 7.5-325 mg per tablet - HYDROcodone-acetaminophen (NORCO) 7.5-325 mg per tablet Chronic use of opiate for therapeutic purpose - HYDROcodone-acetaminophen (NORCO) 7.5-325 mg per tablet - HYDROcodone-acetaminophen (NORCO) 7.5-325 mg per tablet - HYDROcodone-acetaminophen (NORCO) 7.5-325 mg per tablet Pain medication agreement - HYDROcodone-acetaminophen (NORCO) 7.5-325 mg per tablet - HYDROcodone-acetaminophen (NORCO) 7.5-325 mg per tablet - HYDROcodone-acetaminophen (NORCO) 7.5-325 mg per tablet Insomnia, unspecified type - zolpidem (AMBIEN) 5 mg tablet Seems stable, meds renewed. Recheck 12 weeks for follow-up. Preventative visit in the summer. Primary narcolepsy without cataplexy - methylphenidate HCl (RITALIN;METHYLIN) 20 mg tablet - methylphenidate HCl (RITALIN;METHYLIN) 20 mg tablet - methylphenidate HCl (RITALIN;METHYLIN) 20 mg tablet - methylphenidate HCl (RITALIN;METHYLIN) 10 mg tablet - methylphenidate HCl (RITALIN;METHYLIN) 10 mg tablet - methylphenidate HCl (RITALIN;METHYLIN) 10 mg tablet Return in about 12 weeks (around 12/24/2022) for ROV video, also PE in person 24 weeks. Patient education was direct. Barriers were assessed and addressed as needed. I spent a total of 20 minutes on the date of this encounter meeting with the patient and reviewing documentation/coordinating care as described in the above note. Unless otherwise noted, no procedures were performed at the time of the visit. Kalie Hutchins is a 61 y.o. female presenting with Chronic Pain HPI Scheduled for follow-up video visit for chronic pain COPD stable Lung cancer followed by oncology CT scan due in January Blood sugars not too bad Pain stable Prescriptions due October 10 Not using CPAP for KATJA was told that she did not need it Has quit smoking now for several years Currently in temporary housing travel [place] on [facility] Hoping to get senior housing, social work following Data reviewed this visit: problem list/past medical history, current medications, allergies, socialhistory and last visit note ROS - See HPI TELEMEDICINE VIDEO VISIT Today's visit was provided through telemedicine video conferencing: The location of the patient : Home The location of the provider: Clinic Exam Room The following staff and their role did participate in today's encounter visit: Jean Munoz MD Objective LMP 01/11/1987 Physical Exam alert, cooperative. documented in this encounter Plan of Treatment Upcoming Encounters Date Type Department Care Team (Late st Contact Info) Description 06/29/2024 14:15 EDT Office Visit [facility] Medicine [facility] [address] [place] [address] Jean Munoz MD [address] [place] [phone] documented as of this encounter Visit Diagnoses Diagnosis Chronic pain syndrome- Primary Chronic use of opiate for therapeutic purpose Pain medication agreement Encounter for long-term (current) use of other medications Insomnia, unspecified type Primary narcolepsy without cataplexy Screening for osteoporosis- [...] For narcolepsy. Daily Max: 40 mg Reorder 09/12/2022 09/23/2022 methylphenidate HCl (RITALIN;METHYLIN) 20 mg tabletIndications:Primar y narcolepsy without cataplexy Take 2 Tablets by mouth daily for 28 days. For narcolepsy. Daily Max: 40 mg Reorder 08/15/2022 09/23/2022 methylphenidate HCl (RITALIN;METHYLIN) 20 mg tabletIndications:Primar y narcolepsy without cataplexy Take 2 Tablets by mouth daily for 28 days. For narcolepsy. Daily Max: 40 mg Reorder 07/18/2022 09/23/2022 methylphenidate HCl (RITALIN;METHYLIN) 10 mg tabletIndications:Primar y narcolepsy without cataplexy Take 1 Tablet by mouth daily for 28 days. For narcolepsy. Daily Max: 10 mg Reorder 09/12/2022 09/23/2022 methylphenidate HCl (RITALIN;METHYLIN) 10 mg tabletIndications:Primar y narcolepsy without cataplexy Take 1 Tablet by mouth daily for 28 days. For narcolepsy. Daily Max: 10 mg Reorder 08/15/2022 09/23/2022 methylphenidate HCl (RITALIN;METHYLIN) 10 mg tabletIndications:Primar y narcolepsy without cataplexy Take 1 Tablet by mouth daily for 28 days. For narcolepsy. Daily Max: 10 mg Reorder 07/18/2022 09/23/2022 HYDROcodone-acetaminophe n (NORCO) 7.5-325 mg per tabletIndications:Chroni c 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 For chronic pain. Daily Max: 4 Tablets Reorder 08/15/2022 09/23/2022 HYDROcodone-acetaminophe n (NORCO) 7.5-325 mg per tabletIndications:Chroni c pain syndrome,Chronic use of opiate for therapeutic purpose,Pain medication agreement Take 1 Tablet by mouth every 6 hours as needed for up to 28 days for Pain. For chronic pain. Daily Max: 4 Tablets Reorder 07/18/2022 09/23/2022 zolpidem (AMBIEN) 5 mg tabletIndications:Insomn ia, unspecified type take 1 tablet by mouth nightly at bedtime for insomnia *daily limit 1 tab Reorder 07/18/2022 10/01/2022 HYDROcodone-acetaminophe n (NORCO) 7.5-325 mg per tabletIndications:Chroni c pain syndrome,Chronic use of opiate for therapeutic purpose,Pain medication agreement Take 1 Tablet by mouth every 6 hours as needed for up to 28 days for Pain. For chronic pain. Daily Max: 4 Tablets Reorder 09/12/2022 09/23/2022 documented as of this encounter Care Teams [employer] Member Relationship Specialty Start Date End Date Jean Munoz MD [address] [place] [address] PCP - General 12/31/08 Manny Rizzo MD [address] [place] [address] 04/20/10 Afia Valle MD [address] [facility] [address] [place] [address] Care Team Radiation Oncology 07/02/21 documented as of this encounter
--- OUTSIDE RECORDS SUMMARY | 2024-06-10 07:07 | XMS_ITS | Encounter Summary ---
Author Organization [facility] Address [address] [place] [address] Care Team Providers Care Stamp Pad Maker Name Role Phone Jean Munoz MD Primary Care Provider Manny Rizzo MD Unavailable Afia Valle MD Unavailable Jesi Leong Unavailable [phone] Reason for Visit * Reason Onset Date Comments Medications Refill Medications Refill 07/03/2022 Encounter Details Date Type Department Care Team (Late st Contact Info) Description 06/29/2022 Telephone [facility] Medicine [facility] [address] [place] [address] Jean Munoz MD [address] [place] [phone] Medications Refill; Medications Refill Social History Tobacco Use Types [...] in a nursing home (including now)? No 04/24/2021 Interpersonal Safety Answer [...] 45 mcg/actuation inhalerIndications:Panlobu lar emphysema (HCC-CMS) INHALE 2 PUFFS BY MOUTH EVERY 4 HOURS NEEDED FOR WHEEZING/SHORTNESS OF BREATH DIRECTED. 45 g 06/30/2022 10/07/2022 documented in this encounter Miscellaneous Notes * Telephone Encounter - Satinder Montero LPN - 07/07/2022 0922 EDT Medication: Xopenex inhaler Insurance Co: [place] Medicaid Approval # (if applicable): N/A Approval dates: 07/06/22-07/06/23 Name of Pharmacy notified: [facility] SATINDER MONTERO LPN * Telephone Encounter - Satinder Montero LPN - 07/06/2022 0849 EDT Urgent PA sent to insurance ([place] Medicaid) for Xopenex. Will wait for response. SATINDER MONTERO LPN * Telephone Encounter - Belle Chapman RN - 07/03/2022 1652 EDT Spoke with pharmacy: Stating that this is a non-preferred medication - and that insurance requires prior authorization. Spoke with patient to notify this will be sent to PA to be completed. -Patient stating that she is completely out of this medication and has hx of COPD, emphysema -Has a nebulizer, but this helps only while at home. Routing to [facility] STRA[employer] pool. BELLE CHAPMAN RN 07/03/2022 17:00 * Telephone Encounter - Nata Pineda - 07/03/2022 1647 EDT Pt calling states she needs a PA for medication and she has been out since last weekend. Please cb pt * Telephone Encounter - Abdifatah Ann DNP - 06/30/2022 1000 EDT Left message that RX was sent in to pharmacy. Encouraged call back if needed. ABDIFATAH ANN RN 06/30/2022 10:00 * Telephone Encounter - Abdifatah Ann DNP - 06/30/2022 0957 EDT Medication(s) Requested: xopenex [facility]acy[facility] Is patient out of medication? Unknown Last Refill Date: 05/29/21 Last Visit Date with Ordering Provider: 02/05/22 Next Non-Acute Visit Date Scheduled with Care Team: Yes.07/14/22 ABDIFATAH ANN RN 06/30/2022 9:57 * Telephone Encounter - Donna Arriola - 06/29/2022 1129 EDT Patient would like a call once this medication has been sent so that she can pick it up. documented in this encounter Plan of Treatment Upcoming Encounters Date Type Department Care Team (Late st Contact Info) Description 06/29/2024 14:15 EDT [facility] [address] [place] [address] Jean Munoz MD [address] [place] [phone] documented as of this encounter Visit Diagnoses [...] (HCC-CMS) INHALE TWO PUFFS BY MOUTH EVERY FOUR HOURS NEEDED for wheezing as directed. for shortness of breath 05/29/2021 06/30/2022 documented as of this encounter Care Teams Stamp Pad Maker Relationship Specialty Start Date End Date Jean Munoz MD [address] [place] [phone] PCP - General 12/31/08 Manny Rizzo MD [address] [place] [phone] 04/20/10 Afia Valle MD [address] [place] [address], [facility] [address] [place] [phone] Care Team Radiation Oncology 07/02/21 Jesi Leong, [facility] [address] [place] [phone] Computer Repair Engineer 12/24/21 09/20/22 documented as of this encounter
--- OUTSIDE RECORDS SUMMARY | 2024-06-10 07:07 | XMS_ITS | Encounter Summary ---
Author Organization [facility] Address [address] [place] [address] Care Team Providers Care Shield Operator Name Role Phone Jean Munoz MD Primary Care Provider Manny Rizzo MD Unavailable Afia Valle MD Unavailable Jesi Leong BREAK UP WORKER Unavailable Encounter Details Date Type Department Care Team (Late st Contact Info) Description 09/09/2022 Patient Outreach [facility] [address] [place] [address] Jesi Leong BREAK UP WORKER [address] [place] [address] Social History Tobacco Use Types [...] this encounter Progress Notes * Jesi Leong, BREAK UP WORKER - 09/09/2022 1356 EST [facility] Medicare Coordinator Care Coordination 09/09/22 Social Work Medicare Coordinator (SHAYY) received text from Liset asking this quality analyst/technical writer phone her stefan. Spoke live with Liset. She shares she's doing poorly related to her depressive symptoms. Shares she is staying at [facility] [employer] in [place] with support of [employer] ([facility]). She asks for this quality analyst/technical writer's help, sharing she needs to have her emotional support animals with her. (Two kittens staying with her brother, older male cat currently missing, worried about his well being). This quality analyst/technical writer explains there are only a certain number of ESD hotels that permit animals, even when patients have a letter of reasonable accommodation. Supportive listening provided. Liset was alone on holiday. Has been able to visit with her older brother who works at nearby [employer] shift. Shares he's also provided her some food. Confirms she receives her own [employer]. While she could visit her daughter in [place], worries she'd lose her hotel placement and no guarantee she could geta ESD room back. Encouraged Liset to utilize the 24 hour line of [facility] [phone] or the [facility] # 988 as needed. She agrees. Next call as planned 09/10/22 at 3pm. 09/10/2022 [facility] spoke w/ Liset as scheduled at 3pm on this date. She shares doing better today. A friend tookher out for about an hour. Liset shares her brother found her missing cat; she hopes to get back to [place] this weekend to coax lisa out from under camp and into house. Liset reflects on her mental health, had reached out to [facility] yesterday to learn who her admitting manager will be. Pending their return call. Discussed this quality analyst/technical writer's transition to [facility]. Liset shares she'd like to try to model to address her symptoms of depression and anxiety. Liset expresses her desire to maintain her safety, keeping boundaries and trust. Grief and loss themes discussed. All of her belongings are now in storage. PLAN: Next visit October 01, 2022 at 11am by phone under [facility] model. FADUMO PINEDA 09/09/2022 13:57 documented in this encounter Plan of Treatment Upcoming Encounters Date Type Department Care Team (Late st Contact Info) Description 06/29/2024 14:15 EDT Office Visit [facility] [address] [place], [place] [phone] Jean Munoz MD [address] [place] [phone] documented as of this encounter Visit Diagnoses Not on filedocumented in this encounter Care Teams Shield Operator Relationship Specialty Start Date End Date Jean Munoz MD [address] [place] [phone] PCP - General 12/31/08 Manny Rizzo MD [address] [place] [phone] 04/20/10 Afia Valle MD [address] [place] [address] [address] [place] [address] Care Team Radiation Oncology 07/02/21 Jesi Leong LICSW [address] [place] [phone] Medicare Coordinator 12/24/21 09/20/22 documented as of this encounter
--- OUTSIDE RECORDS SUMMARY | 2024-06-10 07:07 | XMS_ITS | Encounter Summary ---
Author Organization [facility] Address [address] [place] [address] Care Team Providers Care Wafer Fabrication Technician Name Role Phone Jean Munoz MD Primary Care Provider Manny Rizzo MD Unavailable Afia Valle MD Unavailable Jesi Leong CONSOLE ASSEMBLER Unavailable Jesi Leong CONSOLE ASSEMBLER Unavailable Reason for Visit * Reason Onset Date Comments DME 07/10/2022 Encounter Details Date Type Department Care Team (Late st Contact Info) Description 07/10/2022 Telephone [facility] [address] [place] [address] Jean Munoz MD [address] [place] [phone] DME Social History Tobacco Use Types Packs/Day Years [...] Telephone Encounter - Nata Pineda - 11/06/2022 1033 EST Faxed order again to [facility] [phone] * Telephone Encounter - Caroline Hsieh RN - 07/13/2022 1558 EDT Faxed to number provided by pt. CAROLINE DELGADILLO RN 07/13/2022 15:58 * Telephone Encounter - Jean Munoz MD - 07/13/2022 1534 EDT Prescription signed, will need to sign paper prescription when I am back in the office tomorrow. * Telephone Encounter - Deidre Patel - 07/10/2022 1515 EDT Reason for Call: DME Summary/Symptoms: Patient said prescription for nebulizer supplies has . Needs a new script sent to [facility]. Deidre Patel 07/10/2022 15:16 documented in this encounter Plan of Treatment Upcoming Encounters Date Type Department Care Team (Late st Contact Info) Description 06/29/2024 14:15 EDT Office Visit [facility] [address] [place] [address] Jean Munoz MD [address] [place] [phone] documented as of this encounter [...] Orde red Date GENERIC DME ORDER 1 07/13/2022 documented in this encounter Care Teams Wafer Fabrication Technician Relationship Specialty Start Date End Date Jean Munoz MD [address] [place] [phone] PCP - General 12/31/08 Manny Rizzo MD [address] [place] [phone] 04/20/10 Afia Valle MD [address] [facility] [address] [place] [phone] Care Team Radiation Oncology 07/02/21 Jesi Leong LICSW [address] [place] [phone] Catering Driver 12/24/21 09/20/22 Jesi Leong LICSW [address] [place] [phone] Behavioral Health Catering DriverElementary Ell Teacher Care 10/19/22 01/23/24 documented as of this encounter
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
--- OUTSIDE RECORDS SUMMARY | 2024-06-10 07:07 | XMS_ITS | Encounter Summary ---
Author Organization [facility] Address [address] [place] [address] Care Team Providers Care Exterminator Name Role Phone Jean Munoz MD Primary Care Provider Manny Rizzo MD Unavailable Afia Valle MD Unavailable Jesi Leong DATA REVIEW SPECIALIST Unavailable [phone] Encounter Details Date Type Department Care Team (Late st Contact Info) Description 08/14/2022 Patient Outreach [facility] [address] [place] [address] eJsi Leong DATA REVIEW SPECIALIST [address] [place] [address] Social History Tobacco Use Types [...] Progress Notes * Jesi Leong LICSW - 08/14/2022 1253 EST [facility] Medical Billing And Coding Instructor Care Coordination 08/14/22 Social Work Medical Billing And Coding Instructor attempted to reach Liset by phone today at 12:50pm. Caught her but it was apoor time to connect by phone. We agree to try again next week. PLAN: This sports book writer will call Liset the week of 08/17/22. FADUMO PINEDA 08/14/2022 12:54 documented in this encounter Plan of Treatment Upcoming Encounters Date Type Department Care Team (Late st Contact Info) Description 06/29/2024 14:15 EDT Office Visit [facility] Medicine [facility] [address] [place] [address] Jean Munoz MD [address] [place] [address] documented as of this encounter Visit Diagnoses Not on filedocumented in this encounter Care Teams Exterminator Relationship Specialty Start Date End Date Jean Munoz MD [address] [place] [address] PCP - General 12/31/08 Manny Rizzo MD [address] [place] [phone] 04/20/10 Afia Valle MD [address] [facility] 2 [place] [phone] MD Care Team Radiation Oncology 07/02/21 Jesi Leong, [facility] [address] [place] [address] Medical Billing And Coding Instructor 12/24/21 09/20/22 documented as of this encounter
--- OUTSIDE RECORDS SUMMARY | 2024-06-10 07:07 | XMS_ITS | Encounter Summary ---
Author Organization [facility] Address [address] [place] [address] Care Team Providers Care Artisan Plasterer Name Role Phone Jean Munoz MD Primary Care Provider Manny Rizzo MD Unavailable Afia Valle MD Unavailable Jesi Leong ADVANCED SOLUTIONS ARCHITECT Unavailable Encounter Details Date Type Department Care Team (Late st Contact Info) Description 06/25/2022 Patient Outreach [facility] [address] [place] [address] Jesi Leong ADVANCED SOLUTIONS ARCHITECT [address] [place] [address] Social History Tobacco Use Types [...] [place] [facility] [place] (including now)? No 04/24/2021 Interpersonal Safety Answer [...] Progress Notes * Jesi Leong LICSW - 06/25/2022 1044 EDT [facility] Supervisor Asphalt Paving Care Coordination 06/25/2022 Social Work Supervisor Asphalt Paving attempted to reach Liset at 10am on this date as planned. No answer. Left VM. Several e-mails received from [facility] related to Liset's housing advocacy. Attempting to support Liset with her housing situation. Update 06/26/22 Liset has not returned calls or texts. PLAN: This screen writer will reach out again to Liset within two weeks. FADUMO PINEDA 06/25/2022 10:52 documented in this encounter Plan of Treatment Upcoming Encounters Date Type Department Care Team (Late st Contact Info) Description 06/29/2024 14:15 EDT Office Visit [facility] [address] [place] [address] Jean Munoz MD [address] [place] [address] documented as of this encounter Visit Diagnoses Not on filedocumented in this encounter Care Teams Artisan Plasterer Relationship Specialty Start Date End Date Jean Munoz MD [address] [place] [address] PCP - General 12/31/08 Manny Rizzo MD [address] [place] [address] 04/20/10 Afia Valle MD [address] [place] [address] 2 [place] [phone] MD Care Team Radiation Oncology 07/02/21 Jesi Leong, [facility] [address] [place] [address] Supervisor Asphalt Paving 12/24/21 09/20/22 documented as of this encounter
--- OUTSIDE RECORDS SUMMARY | 2024-06-10 07:07 | XMS_ITS | Encounter Summary ---
Author Organization [facility] Address [address] [place] [address] Care Team Providers Care Payroll Accounting Manager Name Role Phone eJan Munoz MD Primary Care Provider Manny Rizzo MD Unavailable Afia Valle MD Unavailable Encounter Details Date Type Department Care Team (Late st Contact Info) Description 10/01/2022 Documentation Visit [facility] [address] [place], [place] [phone] Jesi Leong LICSW [address] [place] [address] Social History Tobacco Use Types [...] Progress Notes * Jesi Leong LICSW - 10/01/2022 1101 EST Primary Care Mental Health Integration Phone Encounter 10/01/22 This editorial writer attempts to reach Liset on this date at 11am as planned by phone. Tried 3x, went to [employer], mailbox is full. Texted Liset, invited her call back before noon if able, stating happy to reschedule if unable to connect today. Pending reply. 10/06/22 This editorial writer spoke w/ Liset in order to schedule new patient assessment under the Primary Care MentalHealth Integration Model. Liset agrees to tele-video visit next week. Liset notes sleeping most days, feeling not a lot to do. Depressive symptoms present. PLAN: Oct 12, 2022 at 11am via [employer] Internet[employer] visit Will complete new patient assessment Electronically signed by FADUMO PINEDA 10/06/22 9:49 documented in this encounter Plan of Treatment Upcoming Encounters Date Type Department Care Team (Late st Contact Info) Description 06/29/2024 14:15 EDT Office Visit [facility] Medicine [facility] [address] [place], [place] [phone] Jean Munoz MD [address] [place] [address] documented as of this encounter Visit Diagnoses Not on filedocumented in this encounter Care Teams Payroll Accounting Manager Relationship Specialty Start Date End Date Jean Munoz MD [address] [place] [phone] PCP - General 12/31/08 Manny Rizzo MD [address] [place] [phone] 04/20/10 Afia Valle MD [address] [facility] Level [address] [place] [address] MD Care Team Radiation Oncology 07/02/21 documented as of this encounter
--- OUTSIDE RECORDS SUMMARY | 2024-06-10 07:07 | XMS_ITS | Encounter Summary ---
Author Organization [facility] Address [address] [place] [address] Care Team Providers Care Histology Manager Name Role Phone Jean Munoz MD Primary Care Provider Manny Rizzo MD Unavailable Afia Valle MD Unavailable [phone] Jesi Leong Unavailable [phone] Reason for Visit * Reason Onset Date Comments Medication Problem 09/10/2022 Encounter Details Date Type Department Care Team (Late st Contact Info) Description 09/10/2022 Telephone [facility] [address] [place] [address] Jean Munoz MD [address] [place] [address] Medication Problem Social History Tobacco [...] Daily Max: 4 Tablets 112 Tablet 09/12/2022 09/23/2022 documented in this encounter Miscellaneous Notes * Telephone Encounter - Belle Chapman RN - 09/11/2022 1012 EST Spoke with patient and relayed that prescription was sent to new pharmacy per provider. Patient verbalized understanding and agrees with plan. No barriers to learning identified. Spoke with Faith at [facility] and confirmed that they will cancel the [facility] order for tomorrow on there end and that they do see it was cancelled on our end. -No further questions, prescription is all set. * Telephone Encounter - Jean Munoz MD - 09/11/2022 1006 EST Prescription sent to new pharmacy. Please confirm with previous pharmacy that prescription for September has been canceled, thanks. * Telephone Encounter - Belle Chapman RN - 09/10/2022 1542 EST Images from the original note were not included. Spoke with [facility]ist [facility]: Stating that at this moment they do have enough of this strength of medication. Spoke with patient and asking to send to this pharmacy as her regular does not know when it will beback in stock. [place] Prescription Monitoring System check: Routing to to review. BELLE CHAPMAN RN 09/10/2022 15:57 * Telephone Encounter - Dot Patel - 09/10/2022 1538 EST Reason for Call: Medication Problem Summary/Symptoms: Patient is calling again, asking if this can be done for her. Please call her to advise. Onset and Duration? n/a Appointment Offered? No Dot Patel 09/10/2022 15:38 * Telephone Encounter - JorgeDeidre - 09/10/2022 1114 EST Reason for Call: Medication Problem Summary/Symptoms: Patient has script for hydrocodone 7.5-325 mg that is to start Wednesday 09/12. Pharmacy is telling patient that they are backordered and will not arrive in time to be filled. They have a 10 mg. Patient is asking for a new script for the 7.5 325 mg to be sent to [facility] in [place]. Mathewjuvencio added that pharmacy to her profile. Please call patient when this has been done. Deidre Patel 09/10/2022 11:14 documented in this encounter Plan of Treatment Upcoming Encounters Date Type Department Care Team (Late st Contact Info) Description 06/29/2024 14:15 EDT Office Visit [facility] [address] [place], [place] [phone] Jean Munoz MD [address] [place] [address] documented as of this encounter [...] chronic pain. Daily Max: 4 Tablets Availability 09/12/2022 09/11/2022 documented as of this encounter Care Teams Histology Manager Relationship Specialty Start Date End Date Jean Munoz MD [address] [place] [address] PCP - General 12/31/08 Manny Rizzo MD [address] [place] [phone] 04/20/10 Afia Valle MD [address] [place] [address], [address] [place] [phone] Care Team Radiation Oncology 07/02/21 Jesi Leong [facility] [address] [place] [phone] Store Management Trainee 12/24/21 09/20/22 documented as of this encounter
--- OUTSIDE RECORDS SUMMARY | 2024-06-10 07:07 | XMS_ITS | Encounter Summary ---
Author Organization [facility] Address [address] [place] [address] Care Team Providers Care Skoog Operator Name Role Phone Jean Munoz MD Primary Care Provider Manny Rizzo MD Unavailable Afia Valle MD Unavailable Jesi Leong Unavailable Reason for Referral * Radiology Services (Routine/Next Available) - Authorization Not Required Specialty Diagnoses / Procedures Referred By Alex weldon Referred To Contact Diagnoses Malignant neoplasm of upper lobe, right bronchus or lung (HCC-CMS) Procedures CT CHEST W CONTRAST Afia Valle MD [address] [facility], [address] [place] [address] [facility] Referral ID Status Reason Start Date Expiration Date Visits Requested Visits Authorized [id number] Authorization Not Required 05/12/2022 1 1 Reason for Visit * Radiology Services (Routine/Next Available) - Authorization Not Required Specialty Diagnoses / Procedures [facility] Referred To Contact Diagnoses Malignant neoplasm of upper lobe, right bronchus or lung (HCC-[facility]) Procedures CT CHEST W CONTRAST Afia Valle MD [address] [facility], [address] [place] [address] [facility] Referral ID Status Reason Start Date Expiration Date Visits Requested Visits Authorized [id number] Authorization Not Required 05/12/2022 1 1 Encounter Details Date Type Department Care Team (Latest Contact Info) Description 07/21/2022 12:51 EST - 07/21/2022 23:59 EST Hospital Encounter Medical Center Radiology CT Outpatient - [facility] [address] [place] [address] Malignant neoplasm of upper lobe, right bronchus or lung ([facility]) Discharge Disposition: Home or Self Care Social [...] slept in a fci (including now)? No 04/24/2021 Interpersonal Safety Answer [...] times daily as needed for Constipation. 09/24/2010 blood glucose (BLOOD GLUCOSE TEST) test stripsIndications:Impa ired glucose tolerance 1 Strip by misc (non-drug; combo route) route 2 times daily. 100 Each 1 07/09/2021 11/06/2022 busPIRone (BUSPAR) 15 mg tabletIndications:Anxi ety Take [...] MOUTH EVERY DAY for rosacea 90 Tablet 2 02/05/2022 11/09/2022 DULoxetine (CYMBALTA) 60 mg capsuleIndications:Anx iety Take [...] 01/27/2023 HYDROcodone-acetaminop hen (NORCO) 7.5-325 mg per tabletIndications:Medical Office Representative majo pain syndrome,Chronic use of opiate for therapeutic purpose,Pain medication agreement Take 1 Tablet by mouth every 6 hours as needed for up to 28 days for Pain. For chronic pain. Daily Max: 4 Tablets 112 Tablet 09/12/2022 09/11/2022 HYDROcodone-acetaminop hen (NORCO) 7.5-325 mg per tabletIndications:Medical Office Representative majo 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 For chronic pain. Daily Max: 4 Tablets 112 Tablet 08/15/2022 09/23/2022 HYDROcodone-acetaminop hen (NORCO) 7.5-325 mg per tabletIndications:Medical Office Representative majo pain syndrome,Chronic use of opiate for therapeutic purpose,Pain medication agreement Take 1 Tablet by mouth every 6 hours as needed for up to 28 days for Pain. For chronic pain. Daily Max: 4 Tablets 112 Tablet 07/18/2022 09/23/2022 hydroxypropyl methylcellulose (ISOPTO TEARS) 0.5 % ophthalmic solution Place 1 Drop into both eyes 5 times daily. 12/10/2010 10/06/2023 ipratropium-albuterol (DUONEB) 0.5 mg-3 mg(2.5 mg base)/3 mL nebulizer solutionIndications:Pa nlobular emphysema (HCC-CMS) Take 3 mL by nebulization every 4 hours as needed for Wheezing. 3 mL 3 08/30/2019 11/23/2022 levalbuterol (XOPENEX HFA) 45 mcg/actuation inhalerIndications:Jarquin lobular emphysema (HCC-CMS) INHALE 2 PUFFS BY MOUTH EVERY 4 HOURS NEEDED FOR WHEEZING/SHORTNESS OF BREATH DIRECTED. 45 g 06/30/2022 10/07/2022 lidocaine (XYLOCAINE) 2 % solution 5 ML, mixed with 5 ml mylanta or maalox, swish and swallow for swallowing pain. 100 mL 2 08/19/2021 01/19/2023 methocarbamoL (ROBAXIN) 500 mg tabletIndications:Medical Office Representative majo pain syndrome Take 2 Tablets by mouth at bedtime. 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 For narcolepsy. Daily Max: 40 mg 56 Tablet 09/12/2022 09/23/2022 methylphenidate HCl (RITALIN;METHYLIN) 20 mg tabletIndications:Prim sheila narcolepsy without cataplexy Take 2 Tablets by mouth daily for 28 days. For narcolepsy. Daily Max: 40 mg 56 Tablet 08/15/2022 09/23/2022 methylphenidate HCl (RITALIN;METHYLIN) 20 mg tabletIndications:Prim sheila narcolepsy without cataplexy Take 2 Tablets by mouth daily for 28 days. For narcolepsy. Daily Max: 40 mg 56 Tablet 07/18/2022 09/23/2022 methylphenidate HCl (RITALIN;METHYLIN) 10 mg tabletIndications:Prim sheila narcolepsy without cataplexy Take 1 Tablet by mouth daily for 28 days. For narcolepsy. Daily Max: 10 mg 28 Tablet 09/12/2022 09/23/2022 methylphenidate HCl (RITALIN;METHYLIN) 10 mg tabletIndications:Prim sheila narcolepsy without cataplexy Take 1 Tablet by mouth daily for 28 days. For narcolepsy. Daily Max: 10 mg 28 Tablet 08/15/2022 09/23/2022 methylphenidate HCl (RITALIN;METHYLIN) 10 mg tabletIndications:Prim sheila narcolepsy without cataplexy Take 1 Tablet by mouth daily for 28 days. For narcolepsy. Daily Max: 10 mg 28 Tablet 07/18/2022 09/23/2022 montelukast (SINGULAIR) 10 mg tabletIndications:Nakul rgic rhinitis, [...] PLUS LANCET 33 gauge misc 07/10/2021 024 pregabalin (LYRICA) 300 mg capsuleIndications:Chr onic low back pain TAKE ONE CAPSULE BY MOUTH TWICE DAILY. daily max: 2 capsules 180 capsule 05/11/2022 08/13/2022 promethazine (PHENERGAN) 25 mg tabletIndications:Naus ea TAKE ONE TABLET BY MOUTH EVERY SIX HOURS NEEDED for nausea 30 Tablet 1 03/11/2022 03/29/2023 roflumilast (DALIRESP) 500 mcg tabletIndications:Medical Office Representative majo obstructive pulmonary disease, unspecified COPD type [...] TO 1 DOSE FOR MIGRAINE 9 Tablet 2 05/11/2022 08/10/2022 tamsulosin (FLOMAX) 0.4 mg capsuleIndications:Hes itancy Take 1 Cap by mouth daily. 90 Cap 3 08/30/2019 01/27/2023 zolpidem (AMBIEN) 5 mg tabletIndications:Inso mnia, unspecified type take 1 tablet by mouth nightly at bedtime for insomnia *daily limit 1 tab 28 Tablet 5 07/18/2022 10/01/2022 documented as of this encounter Discharge Disposition Disposition Code Departure Means Destination Home or Self Care documented in this encounter Plan of Treatment Upcoming Encounters Date Type Department Care Team (Late st Contact Info) Description 06/29/2024 14:15 EDT Office Visit [facility][note 3] [address] [place], [place] [id number] Jean Munoz MD [address] [place] [phone] documented as of this encounter Procedures Procedure Name Priority Date/Time Associated Diagnosis Comments CT CHEST W CONTRAST Routine 07/21/2022 1 3:32 EST Malignant neoplasm of upper lobe, right bronchus or lung ([facility]) documented in this encounter Results * CT CHEST W CONTRAST (07/21/2022 13:32 EST) Anatomical Region Laterality Modality Chest Computed Tomogra phy 07/21/2022 14:1 4 EST Impressions 07/21/2022 14:14 EST 1. ??Evolution of radiation pneumonitis and fibrosis in the right upper lobe, overall decreased in severity since the previous study. Unchanged extent of mild, amorphous, residual soft tissue in the right hilum and stable top normal size right lower paratracheal lymph node. No evidence of recurrent malignancy. 2. ??New focal atelectasis in the right middle lobe. No evidence of central obstructing lesion, therefore this may be due to mucous plugging of small, peripheral airways. 3. ??Stable size and appearance of cystic and groundglass lesion in the periphery of the left upper lobe, possibly representing an indolent synchronous primary lung carcinoma. 4. ??Stable incidental findings, as above. Narrative 07/21/2022 14:[address] CHEST W CONTRAST ??07/21/2022 1:00 PM Clinical History/Comments: Non-small cell lung cancer (NSCLC), non-metastatic, assess treatment response Technique: CT scan of the chest with intravenous contrast material was performed. Comparison: 05/04/[address] scan Findings: Lower neck: Normal. Mediastinum and hazel (non-vascular): Unchanged small hiatal hernia with postsurgical changes in the region of the gastroesophageal junction compatible with prior gastric fundoplication. ??Stable top normal size lower paratracheal lymph nodes. Mild residual, amorphous soft tissue in the right hilum, difficult to compare with previous studies which were performed without intravenous contrast material. No definite new soft tissue in the right hilum. Very slight thickening of juli tissue in the left hilum, unchanged. Cardiovascular: ??Bronchial artery collaterals extending into the right hilum, significance uncertain but possibly related to compromise of the right pulmonary arteries as they course through the region of treated tumor. Mild aortic atherosclerosis. Lungs and airways: ??Again seen are findings compatible with evolving radiation [...] through the region of the treated tumor. Pleura: Stable very mild thickening of the superolateral right pleura in the region of treated malignancy. No new pleural abnormalities. Upper abdomen (limited to upper abdomen, not optimized for abdominal imaging): Unremarkable. Bones and chest wall soft tissues: ??Normal soft tissues. ??Partially imaged cervical spine fusion hardware. No suspicious osseous lesions. Procedure Note Jade Murrell MD - 07/21/2022 CT CHEST W CONTRAST 07/21/2022 1:00 PM Clinical History/Comments: Non-small cell lung cancer (NSCLC), non-metastatic, assess treatmentresponse Technique: CT scan of the chest with intravenous contrast material was performed. Comparison: 05/04/[address] scan Findings: Lower neck: Normal. Mediastinum and hazel (non-vascular): Unchanged small hiatal hernia withpostsurgical changes in the region of the gastroesophageal junctioncompatible with prior gastric fundoplication. Stable top normal sizelower paratracheal lymph nodes. Mild residual, amorphous soft tissue inthe right hilum, difficult to compare with previous studies which wereperformed without intravenous contrast material. No definite new softtissue in the right hilum. Very slight thickening of juli tissue in theleft hilum, unchanged. Cardiovascular: Bronchial artery collaterals extending into the righthilum, significance uncertain but possibly related to compromise of theright pulmonary arteries as they course through the region of treatedtumor. Mild aortic atherosclerosis. Lungs and airways: Again seen are findings compatible with evolvingradiation pneumonitis in the right upper lobe, including extensive nodularinterstitial thickening extending from the right hilum with underlyinggroundglass opacity, interstitial thickening, numerous small nodules, andmucous plugging of underlying airways. The number of associated smallnodules and consolidation within the region of radiation change hasslightly decreased since the previous study. There is stable cystic lesion with surrounding groundglass opacity in theperiphery of the left upper lobe (image 197 series 402). Emphysema anddiffuse pattern, bilateral tiny pulmonary nodules are again noted. Newfocal atelectasis is seen in the medial segment of the right middlelobe.There is stable narrowing of central right airways as they coursethrough the region of the treated tumor. Pleura: Stable very mild thickening of the superolateral right pleura inthe region of treated malignancy. No new pleural abnormalities. Upper abdomen (limited to upper abdomen, not optimized for abdominalimaging): Unremarkable. Bones and chest wall soft tissues: Normal soft tissues. Partially imagedcervical spine fusion hardware. No suspicious osseous lesions. IMPRESSION 1. Evolution of radiation pneumonitis and fibrosis in the right upperlobe, overall decreased in severity since the previous study. Unchangedextent of mild, amorphous, residual soft tissue in the right hilum andstable top normal size right lower paratracheal lymph node. No evidence ofrecurrent malignancy. 2. New focal atelectasis in the right middle lobe. No evidence of centralobstructing lesion, therefore this may be due to mucous plugging of small,peripheral airways. 3. Stable size and appearance of cystic and groundglass lesion in theperiphery of the left upper lobe, possibly representing an indolentsynchronous primary lung carcinoma. 4. Stable incidental findings, as above. Afia Valle MD IMG CT ORDERAB LES [...] Once in imaging, 1 dose, Starting on Wed07/21/22 at 1323, Until Wed07/21/22 at 1331, Routine, Imaging Protocol Orders Given 07/21/2022 13:31 EST 65 mL documented in this encounter Orders Medications Ordered That Victor Manuel ht Not Have Been Administered Count Last Ordered Date First Ordered Date iohexoL (OMNIPAQUE 350) solution 100 mL 1 1 09/20/2021 documented in this encounter Care Teams Skoog Operator Relationship Specialty Start Date End Date Jean Munoz MD [address] [place] [phone] PCP - General 12/31/08 Manny Rizzo MD [address] [place] [phone] 04/20/10 Afia Valle MD [address] [facility] 2 [place] [phone] Care Team Radiation Oncology 07/02/21 Jesi Leong, [facility] [address] [place] [phone] Area Sales Manager 12/24/21 09/20/22 documented as of this encounter
--- OUTSIDE RECORDS SUMMARY | 2024-06-10 07:07 | XMS_ITS | Encounter Summary ---
Author Organization [facility] Address [address] [place] [address] Care Team Providers Care Customer Support Associate Name Role Phone Jean Munoz MD Primary Care Provider Manny Rizzo MD Unavailable Afia Valle MD Unavailable Jesi Leong Unavailable Reason for Referral * Test (Routine/Next Available) - Authorization Not Required Specialty Diagnoses / Procedures [facility] Referred To Contact Diagnoses Chronic obstructive pulmonary disease, unspecified COPD type ([facility]) Procedures PULMONARY FUNCTION TESTING Jed Gannon MD [address] [facility], [address] [place] [address] Referral ID Status Reason Start Date Expiration Date Visits Requested Visits Authorized [id number] Authorization Not Required 05/25/2022 1 1 Encounter Details Date Type Department Care Team (Late st Contact Info) Description 05/25/2022 Orders Only [facility] Pulmonology & Critical Care - [facility] [address] [place] [address] Mariely Dunne RN Chronic obstructive pulmonary disease, unspecified COPD type (HCC-CMS) (HCC) (HCC-CMS) (Primary Dx) Social History Tobacco Use [...] slept in a mcfp (including now)? No 04/24/2021 Interpersonal Safety Answer [...] Info) Description 06/29/2024 14:15 EDT Office Visit [facility] [address] [place] [address] Jean Munoz MD [address] [place] [phone] documented as of this encounter Results * PULMONARY FUNCTION TESTING (01/27/2023 12:18 EDT) 01/27/2023 12:1 8 EDT Jed Gannon MD PFT ORDERABLES [facility] PFT documented in this encounter Visit Diagnoses Diagnosis Chronic obstructive pulmonary disease, unspecified COPD type ([facility])- Primary Screening for osteoporosis- Primary Special screening for osteoporosis Primary narcolepsy without cataplexy Chronic pain syndrome Chronic low back pain Lumbago Chronic use of opiate for therapeutic purpose Pain medication agreement Encounter for long-term (current) use of other medications Screen for colon cancer Special screening for malignant neoplasms, colon documented in this encounter Care Teams Customer Support Associate Relationship Specialty Start Date End Date Jean Munoz MD [address] [place] [phone] PCP - General 12/31/08 Manny Rizzo MD [address] [place] [phone] 04/20/10 Afia Valle MD [address] [facility] 2 [place] [address] Care Team Radiation Oncology 07/02/21 Jesi Leong, [facility] [address] [place] [phone] Ic Design Manager 12/24/21 09/20/22 documented as of this encounter
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
--- OUTSIDE RECORDS SUMMARY | 2024-06-10 07:07 | XMS_ITS | Encounter Summary ---
Author Organization [facility] Address [address] [place] [address] Care Team Providers Care R D Internship Name Role Phone Jean Munoz MD Primary Care Provider Manny Rizzo MD Unavailable Afia Valle MD Unavailable Jesi Leong Unavailable Reason for Visit * Reason Onset Date Comments Other Medications Refill 05/26/2022 Encounter Details Date Type Department Care Team (Late st Contact Info) Description 05/23/2022 Telephone [facility] [address] [place] [address] Jean Munoz MD [address] [place] [phone] Other; Medications Refill Social History Tobacco Use Types [...] slept in a residential (including now)? No 04/24/2021 Interpersonal Safety Answer [...] BEDTIME for insomnia *daily limit 1 tablet 28 Tablet 1 05/25/2022 07/16/2022 documented in this encounter Miscellaneous Notes * Telephone Encounter - Caroline Hsieh RN - 06/04/2022 1304 EDT Pt in ED 05/15 for COPD exacerbation and infection. Was prescribed an abx and initially hadn't felt better so she called the office. Since then, symptoms have resolved. She has not further questions or concerns. CAROLINE DELGADILLO RN 06/04/2022 13:17 * Telephone Encounter - Caroline Hsieh RN - 05/26/2022 1529 EDT [facility] CAROLINE DELGADILLO RN 05/26/2022 15:30 * Telephone Encounter - Nata Pineda - 05/26/2022 1317 EDT Pt calling to speak with RN. Pt still not feeling well, please cb pt * Telephone Encounter - Caroline Hsieh RN - 05/25/2022 0849 EDT Images from the original note were not included. Requested Prescriptions Pending Prescriptions Disp Refills ??? zolpidem (AMBIEN) 5 mg tablet [Pharmacy Med Name: Zolpidem Tartrate Oral Tablet 5 MG] 28 Tablet0 Sig: TAKE 1 TABLET BY MOUTH NIGHTLY AT BEDTIME for insomnia *daily limit 1 tablet [facility]: [facility] Last Refill Date: 04/24/22 Last Visit Date: 02/05/22 Next Non-Acute Visit Date Scheduled with Care Team: Yes. 07/14/2022 [facility] t to schedule a visit sooner than Nov. PCP wanted to see pt around 04/30 for med check. Routing to provider. CAROLINE DELGADILLO RN 05/25/2022 8:50 documented in this encounter Plan of Treatment Upcoming Encounters Date Type Department Care Team (Late st Contact Info) Description 06/29/2024 14:15 EDT Office Visit [facility] [address] [place] [address] Jean Munoz MD [address] [place] [phone] documented as of this encounter Visit [...] type Take 1 Tablet by mouth at bedtime for 28 days. For insomnia. Daily Max: 5 mg 04/25/2022 05/25/2022 documented as of this encounter Care Teams R D Internship Relationship Specialty Start Date End Date Jean Munoz MD [address] [place] [phone] PCP - General 12/31/08 Manny Rizzo MD [address] [place] [phone] 04/20/10 Afia Valle MD [address] [facility] 2 [place] [phone] Care Team Radiation Oncology 07/02/21 Jesi Leong, [facility] [address] [place] [phone] Assistant Track And Field Coach 12/24/21 09/20/22 documented as of this encounter
--- OUTSIDE RECORDS SUMMARY | 2024-06-10 07:07 | XMS_ITS | Encounter Summary ---
Author Organization [facility] Address [address] [place] [address] Care Team Providers Care Backend Python Developer Name Role Phone Jean Munoz MD Primary Care Provider Manny Rizzo MD Unavailable Afia Valle MD Unavailable Jesi Leong Unavailable [phone] Reason for Visit * Reason Comments Medications Refill Encounter Details Date Type Department Care Team (Late st Contact Info) Description 08/07/2022 Refill [facility] Medicine [facility] [address] [place] [address] Jean Munoz MD [address] [place] [address] Medications Refill Social History Tobacco [...] FOR MIGRAINE 9 Tablet 3 08/10/2022 12/09/2022 documented in this encounter Miscellaneous Notes * Telephone Encounter - Jean Munoz MD - 08/10/2022 0843 EST Rx sent. * Telephone Encounter - Fani Dickens RN - 08/10/2022 0855 EST Requested Prescriptions Pending Prescriptions Disp Refills ??? SUMAtriptan (IMITREX) 100 mg tablet [Pharmacy Med Name: SUMAtriptan Succinate Oral Tablet 100 MG] 9 Tablet 0 Sig: tAKE 1 TABLET BY MOUTH ONCE NEEDED FOR UP TO 1 DOSE FOR MIGRAINE Pharmacy: [facility] Last Refill Date: 05/11/22 Last Visit Date: 07/14/22 Next Non-Acute Visit Date Scheduled with Care Team: No. Visit date not found Pended rx, routing to PCP for approval. FANI SPANGLER RN 08/10/2022 8:27 documented in this encounter Plan of Treatment Upcoming Encounters Date Type Department Care Team (Late st Contact Info) Description 06/29/2024 14:15 EDT Office Visit [facility] Medicine [facility] [address] [place] [address] Jean Munoz MD [address] [place] [phone] documented as of this encounter Visit Diagnoses [...] FOR UP TO 1 DOSE FOR MIGRAINE 05/11/2022 08/10/2022 documented as of this encounter Care Teams Backend Python Developer Relationship Specialty Start Date End Date Jean Munoz MD [address] [place] [phone] PCP - General 12/31/08 Manny Rizzo MD [address] [place] [phone] 04/20/10 Afia Valle MD [address] [place] [address] [address] [place] [phone] Care Team Radiation Oncology 07/02/21 Jesi Leong, [facility] [address] [place] [phone] Lacquer Coater 12/24/21 09/20/22 documented as of this encounter
--- OUTSIDE RECORDS SUMMARY | 2024-06-10 07:07 | XMS_ITS | Encounter Summary ---
Author Organization [facility] Address [address] [place] [address] Care Team Providers Care Labor Trainer Name Role Phone Jean Munoz MD Primary Care Provider Manny Rizzo MD Unavailable Afia Valle MD Unavailable [phone] Jesi Leong QC SCIENTIST Unavailable Encounter Details Date Type Department Care Team (Late st Contact Info) Description 07/30/2022 Patient Outreach [facility] [address] [place] [address] Jeis Leong QC SCIENTIST [address] [place] [address] Social History Tobacco Use Types [...] this encounter Progress Notes * Jesi Leong, FADUMO - 07/30/2022 9261 EST [facility] Care Management Follow Up Social Work Yard Pipe Grader followed up with Maria Del Rosario by phone for continued support and resource navigation. TOPIC OF CONVERSATION: ??? Reviewed assessment and plan from previous visit with patient. ??? Maria Del Rosario shares she was recently bed bound due to significant illness. Had not received any of the correspondence from [employer]. Hearing yesterday; must be out of her current home byDeceer 1. ??? Working w/ [employer], hopeful to get emergency housed in [place]. Will need a letter of reasonable accommodation for her three cats. ??? Discussed storage, boxes at local [employer], working on attaining a car with the help of a friend. ??? Maria Del Rosario reflects on the impact of all of this on her mental health. Supportive listening provided. ??? Engaged patient in conversation related to positive behavior change, self- management, goal setting and action planning using motivational interviewing and active listening. Prioritized Patient Identified Goals: ??1.??Maria Del Rosario agrees to reach out to FADUMO Lewis in the next month to start counseling. ?Achievement toward goal:??In progress; did not access today. 2. Maria Del Rosario??will engage in connecting to??resources??to maintain safe housing.?Achievement toward goal: In process.?Maria Del Rosario's [employer] application was approved and housing costs were placed in [place]. Ultimately her landlord declined offer by court that would allow Maria Del Rosario to stay until October 2022. Maria Del Rosario working to move by August 13. ? 3. Maria Del Rosario will follow up with [employer] to help access funding to pay utilities and internet costs within the next four weeks. Achievement toward goal: In progress; Maria Del Rosario continues to partner with [employer] now for help with emergency housing and moving expenses. Plan: Reconnect within three weeks. This insurance underwriter sales will ask Dr. Munoz to sign off on Reasonable Accommodation ltr. FADUMO PINEDA 07/30/2022 14:09 [facility] Care Management Initial Assessment and Care Plan Original Intake Assessment in December 2021; this insurance underwriter sales updating due to new department policy. Referral Reason: Resource Navigation Pertinent medical and behavioral health issues: Lung Cancer, Depression / Anxiety Patient Care Team: Jean Munoz MD as PCP - General Manny Rizzo MD Lester-Coll, Nataniel H, MD as MD Care Team (Radiation Oncology) Jesi Leong LICSW as Yard Pipe Grader Medications: Current Outpatient Medications: ??? benzonatate (TESSALON PERLES) 100 mg capsule, Take 1 Capsule by mouth 3 times daily as needed for up to 90 days for Cough., Disp: 90 Capsule, Rfl: 2 ??? blood glucose (BLOOD GLUCOSE TEST) test strips, 1 Strip by misc (non-drug; combo route) route 2times daily., Disp: 100 Each, Rfl: 1 ??? busPIRone (BUSPAR) 15 mg tablet, Take 1 Tablet by mouth 3 times daily., Disp: 270 Tablet, Rfl: 3 ??? Ciclesonide 50 mcg spray,non-aerosol, 1 spray each nostril daily (Patient not taking: Reported on 07/23/2022), Disp: 37.5 g, Rfl: 5 ??? cycloSPORINE (RESTASIS) 0.05 % ophthalmic emulsion, Place 1 drop into both eyes 2 times daily.,Disp: 1 vial, Rfl: 0 ??? docusate sodium (COLACE) 100 mg capsule, Take 1 Cap by mouth 2 times daily as needed for Constipation. (Patient not taking: Reported on 07/23/2022), Disp: , Rfl: ??? doxycycline (VIBRA-TABS) 100 mg tablet, TAKE 1 TABLET BY MOUTH EVERY DAY for rosacea, Disp: 90 Tablet, Rfl: 2 ??? DULoxetine (CYMBALTA) 60 mg capsule, Take 2 Capsules by mouth daily. For depression, anxiety, Disp: 180 Each, Rfl: 3 ??? fexofenadine (JUDITH) 180 mg tablet, TAKE 1 TABLET BY MOUTH EVERY DAY for allergies, Disp: 90 Tablet, Rfl: 4 ??? fluticasone propion-salmeteroL (ADVAIR HFA) 230-21 mcg/actuation inhaler, INHALE TWO PUFFS BY MOUTH TWICE DAILY as directed, Disp: 16 g, Rfl: 5 ??? [START ON 09/12/2022] HYDROcodone-acetaminophen (NORCO) 7.5-325 mg per tablet, Take 1 Tablet bymouth every 6 hours as needed for up to 28 days for Pain. For chronic pain. Daily Max: 4 Tablets, Disp: 112 Tablet, Rfl: 0 ??? [START ON 08/15/2022] HYDROcodone-acetaminophen (NORCO) 7.5-325 mg per tablet, Take 1 Tablet by mouth every 6 hours for 28 days. For chronic pain. Daily Max: 4 Tablets, Disp: 112 Tablet, Rfl: 0 ??? HYDROcodone-acetaminophen (NORCO) 7.5-325 mg per tablet, Take 1 Tablet by mouth every 6 hours as needed for up to 28 days for Pain. For chronic pain. Daily Max: 4 Tablets, Disp: 112 Tablet, Rfl: 0 ??? hydroxypropyl methylcellulose (ISOPTO TEARS) 0.5 % ophthalmic solution, Place 1 Drop into both eyes 5 times daily., Disp: , Rfl: ??? ipratropium-albuterol (DUONEB) 0.5 mg-3 mg(2.5 mg base)/3 mL nebulizer solution, Take 3 mL by nebulization every 4 hours as needed for Wheezing., Disp: 3 mL, Rfl: 3 ??? levalbuterol (XOPENEX HFA) 45 mcg/actuation inhaler, INHALE 2 PUFFS BY MOUTH EVERY 4 HOURS NEEDED FOR WHEEZING/SHORTNESS OF BREATH DIRECTED., Disp: 45 g, Rfl: 0 ??? lidocaine (XYLOCAINE) 2 % solution, 5 ML, mixed with 5 ml mylanta or maalox, swish and swallow for swallowing pain., Disp: 100 mL, Rfl: 2 ??? methocarbamoL (ROBAXIN) 500 mg tablet, Take 2 Tablets by mouth at bedtime., Disp: 180 Tablet, Rfl: 1 ??? [START ON 09/12/2022] methylphenidate HCl (RITALIN;METHYLIN) 20 mg tablet, Take 2 Tablets by mouth daily for 28 days. For narcolepsy. Daily Max: 40 mg, Disp: 56 Tablet, Rfl: 0 ??? [START ON 08/15/2022] methylphenidate HCl (RITALIN;METHYLIN) 20 mg tablet, Take 2 Tablets by mouth daily for 28 days. For narcolepsy. Daily Max: 40 mg, Disp: 56 Tablet, Rfl: 0 ??? methylphenidate HCl (RITALIN;METHYLIN) 20 mg tablet, Take 2 Tablets by mouth daily for 28 days.For narcolepsy. Daily Max: 40 mg, Disp: 56 Tablet, Rfl: 0 ??? [START ON 09/12/2022] methylphenidate HCl (RITALIN;METHYLIN) 10 mg tablet, Take 1 Tablet by mouth daily for 28 days. For narcolepsy. Daily Max: 10 mg, Disp: 28 Tablet, Rfl: 0 ??? [START ON 08/15/2022] methylphenidate HCl (RITALIN;METHYLIN) 10 mg tablet, Take 1 Tablet by mouth daily for 28 days. For narcolepsy. Daily Max: 10 mg, Disp: 28 Tablet, Rfl: 0 ??? methylphenidate HCl (RITALIN;METHYLIN) 10 mg tablet, Take 1 Tablet by mouth daily for 28 days. For narcolepsy. Daily Max: 10 mg, Disp: 28 Tablet, Rfl: 0 ??? montelukast (SINGULAIR) 10 mg tablet, TAKE 1 TABLET BY MOUTH EVERY DAY for allergies (Patient not taking: Reported on 07/23/2022), Disp: 90 Tablet, Rfl: 3 ??? montelukast (SINGULAIR) 10 mg tablet, Take 1 Tab by mouth daily. For allergies, Disp: 90 Tab, Rfl: 3 ??? omeprazole (PRILOSEC) 40 mg capsule, Take 1 Cap by mouth daily., Disp: 90 Cap, Rfl: 3 ??? ondansetron (ZOFRAN) 4 mg tablet, TAKE ONE TABLET BY MOUTH DAILY NEEDED for nausea, Disp: 30Tablet, Rfl: 2 ??? ONETOUCH DELICA PLUS LANCET 33 gauge misc, , Disp: , Rfl: ??? pregabalin (LYRICA) 300 mg capsule, TAKE ONE CAPSULE BY MOUTH TWICE DAILY. daily max: 2 capsules, Disp: 180 capsule, Rfl: 0 ??? promethazine (PHENERGAN) 25 mg tablet, TAKE ONE TABLET BY MOUTH EVERY SIX HOURS NEEDED for nausea, Disp: 30 Tablet, Rfl: 1 ??? roflumilast (DALIRESP) 500 mcg tablet, Take 1 Tablet by mouth daily., Disp: 90 Tablet, Rfl: 3 ??? rOPINIRole (REQUIP) 2 mg tablet, Take 1 Tablet by mouth at bedtime., Disp: 90 Tablet, Rfl: 3 ??? SPIRIVA RESPIMAT 1.25 mcg/actuation inhaler, INHALE TWO PUFFS BY MOUTH DAILY DIRECTED, Disp:12 g, Rfl: 3 ??? SUMAtriptan (IMITREX) 100 mg tablet, tAKE 1 TABLET BY MOUTH ONCE NEEDED FOR UP TO 1 DOSE FORMIGRAINE, Disp: 9 Tablet, Rfl: 2 ??? tamsulosin (FLOMAX) 0.4 mg capsule, Take 1 Cap by mouth daily. (Patient not taking: No sig reported), Disp: 90 Cap, Rfl: 3 ??? zolpidem (AMBIEN) 5 mg tablet, take 1 tablet by mouth nightly at bedtime for insomnia *daily limit 1 tab, Disp: 28 Tablet, Rfl: 5 CM reviewed medication list in the chart. Living Arrangement: Currently resides in a home rented in [place]. Will need to move by August 13.Working with [employer] to attain emergency housing in [place]. Social Supports: Limited. A friend and her daughter in [place]. Activities requiring assistance: Independent with ADLs Current plan for assistance with ADLs: not applicable Hearing/Vision: wears glasses Cognitive Function: No cognitive impairment identified Health literacy Assessment: patient is able to read/write, appropriate to their developmental age Social Determinants of Health: SDOH screen completed during visit: Yes Food Insecurity: Food Insecurity Present ??? Worried About Running Out of Food in the Last Year: Sometimes true ??? Ran Out of Food in the Last Year: Sometimes true Financial Resource Strain: High Risk ??? Difficulty of Paying Living Expenses: Hard Housing Stability: High Risk ??? Unable to Pay for Housing in the Last Year: Yes ??? Number of Places Lived in the Last Year: 1 ??? Unstable Housing in the Last Year: No Transportation Needs: Unmet Transportation Needs ??? Lack of Transportation (Medical): Yes ??? Lack of Transportation (Non-Medical): Yes Depression: At risk ??? PHQ-2 Score: 6 Alcohol Use: Not on file Tobacco Use: Medium Risk ??? Smoking Tobacco Use: Former ??? Smokeless Tobacco Use: Never ??? Passive Exposure: Not on file Healthcare Insurance: Payer/Plan Subscr Sex Relation Sub. Ins. ID Effective Group Num 1. MEDICAID ACO * MARIA DEL ROSARIO MEADOWS 1960 Female Self [id number] [birth year]16 [address] DME: Not currently using any DME. DME vendor: not applicable Barriers to using technology: no or limited access to an electronic device Depending on internet and phone service. Need for Caregiver Resources: independent without need for assistance Cultural, spiritual or language factors affecting health: none identified Existing Community Resources: [facility] in [place] [facility]. Gaps in Resources Identified: Housing, will need emergency housing via [employer] and [employer]. Advance Directive on File: AD on file Assessment/Clinical Summary: This insurance underwriter sales has been supporting Maria Del Rosario since December 2021 to navigate community resources, housing and general emotional support. She was working with the [employer] as well, however they are currently not involved. Maria Del Rosario benefits from support and care management. Prioritized Patient Identified Goals: See above. Plan: (Barriers to meeting goals and follow up plan for communication) Call again by August 12, 2022. FADUMO PINEDA 07/30/2022 14:09 documented in this encounter Plan of Treatment Upcoming Encounters Date Type Department Care Team (Late st Contact Info) Description 06/29/2024 14:15 EDT Office Visit [facility] Medicine [facility] [address] [place], [place] [phone] Jean Munoz MD [address] [place] [phone] documented as of this encounter Visit Diagnoses Not on filedocumented in this encounter Care Teams Labor Trainer Relationship Specialty Start Date End Date Jean Munoz MD [address] [place] [phone] PCP - General 12/31/08 Manny Rizzo MD [address] [place] [phone] 04/20/10 Afia Valle MD [address] [facility], [facility] [address] [place] [phone] MD Care Team Radiation Oncology 07/02/21 Jesi Leong, [facility] [address] [place] [address] Yard Pipe Grader 12/24/21 09/20/22 documented as of this encounter
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
--- OUTSIDE RECORDS SUMMARY | 2024-06-10 07:07 | XMS_ITS | Encounter Summary ---
Author Organization [facility] Address [address] [place] [address] Care Team Providers Care Subsystems Engineer Name Role Phone Jean Munoz MD Primary Care Provider Manny Rizzo MD Unavailable Afia Valle MD Unavailable Jesi Leong Unavailable Reason for Visit * Reason Comments Medications Refill Encounter Details Date Type Department Care Team (Late st Contact Info) Description 08/13/2022 Refill [facility] 3 [place] [address] Jean Munoz MD [address] [place] [address] Medications Refill Social History Tobacco [...] Dispensed Refills Start Date End Da te pregabalin (LYRICA) 300 mg capsuleIndications:Director Of Retail Marketing majo low back pain TAKE ONE CAPSULE BY MOUTH TWICE DAILY *daily max 2 capsules 180 Capsule 1 08/13/2022 02/22/2023 documented in this encounter Miscellaneous Notes * Telephone Encounter - Jean Munoz MD - 08/13/2022 1620 EST Rx done. * Telephone Encounter - Lizz Negro RN - 08/13/2022 1102 EST Medication(s) Requested: lyrica 300 mg Preferred Pharmacy: [facility] Is patient out of medication? unknown Last Refill Date: 05/11/22 Last Visit Date with Ordering Provider: 07/14/22 Next Non-Acute Visit Date Scheduled with Care Team: none LIZZ NEGRO RN 08/13/2022 11:02 documented in this encounter Plan of Treatment Upcoming Encounters Date Type Department Care Team (Late st Contact Info) Description 06/29/2024 14:15 EDT Office Visit [facility] [address] [place] [address] Jean Munoz MD [address] [place] [phone] documented as of this encounter Visit Diagnoses Diagnosis Chronic low back pain- Primary Lumbago Screening for osteoporosis- Primary Special screening for osteoporosis Primary narcolepsy without cataplexy Chronic pain syndrome Chronic low back pain Lumbago Chronic use of opiate for therapeutic purpose Pain medication agreement Encounter for long-term (current) use of other medications Screen for colon cancer Special screening for malignant neoplasms, colon documented in this encounter Discontinued Medications Medication Sig Discontinue Reason Start Date End Da te pregabalin (LYRICA) 300 mg capsuleIndications:Director Of Retail Marketing majo low back pain TAKE ONE CAPSULE BY MOUTH TWICE DAILY. daily max: 2 capsules 05/11/2022 08/13/2022 documented as of this encounter Care Teams Subsystems Engineer Relationship Specialty Start Date End Date Jean Munoz MD [address] [place] [address] PCP - General 12/31/08 Manny Rizzo MD [address] [place] [phone] 04/20/10 Afia Valle MD 111 [facility], Level 2 [place] [phone] Care Team Radiation Oncology 07/02/21 Jesi Leong, [facility] 3 [place] [address] Carbide Grinder 12/24/21 09/20/22 documented as of this encounter
--- OUTSIDE RECORDS SUMMARY | 2024-06-10 07:07 | XMS_ITS | Encounter Summary ---
Author Organization [facility] Address [address] [place] [address] Care Team Providers Care Shredded Filler Cigar Maker Machine Name Role Phone Jean Munoz MD Primary Care Provider Manny Rizzo MD Unavailable Afia Valle MD Unavailable Jesi Leong Unavailable Encounter Details Date Type Department Care Team (Latest Contact Info) Description 05/15/2022 Travel Social History Tobacco Use Types Packs/Day [...] Office Visit [facility] 3 [place] [address] Jean Munoz MD 3 [place] [address] documented as of this encounter Visit Diagnoses Not on filedocumented in this encounter Additional Health Concerns Infection Onset Date Last Indicated Resolved Time R/O COVID-19 05/15/2022 05/15/2022 05/20/2022 22:1 6 EDT documented as of this encounter Care Teams Shredded Filler Cigar Maker Machine Relationship Specialty Start Date End Date Jean Munoz MD [address] [place] [address] PCP - General 12/31/08 Manny Rizzo MD [address] [place] [phone] 04/20/10 Afia Valle MD [address] [place] [address] 2 [place] [phone] Care Team Radiation Oncology 07/02/21 Jesi Leong, [facility] [address] [place] [phone] Electrical Automation Engineer 12/24/21 09/20/22 documented as of this encounter
--- OUTSIDE RECORDS SUMMARY | 2024-06-10 07:07 | XMS_ITS | Encounter Summary ---
Author Organization [facility] Address [address] [place] [address] Care Team Providers Care Cardiac Nurse Specialist Name Role Phone Jaen Munoz MD Primary Care Provider Manny Rizzo MD Unavailable Afia Valle MD Unavailable Reason for Visit * Reason Comments Medications Refill Encounter Details Date Type Department Care Team (Late st Contact Info) Description 10/07/[address] [facility] 3 [place] [address] Jean Munoz MD [address] [place] [phone] Medications Refill Social History Tobacco Use [...] or slept in a long-term (including now)? No 07/30/2022 Interpersonal Safety Answer [...] BREATH DIRECTED. 45 g 1 10/07/2022 06/29/2023 documented in this encounter Miscellaneous Notes * Telephone Encounter - Lizz Negro, RN - 10/07/2022 5951 EST Medication(s) Requested: xopenex hfa 45 mcg inhaler Preferred Pharmacy: [facility] Is patient out of medication? unknown Last Refill Date: 06/30/22 Last Visit Date with Ordering Provider: 10/01/22 Next Non-Acute Visit Date Scheduled with Care Team: 12/15/22 LIZZ NEGRO RN 10/07/2022 15:09 documented in this encounter Plan of Treatment Upcoming Encounters Date Type Department Care Team (Late st Contact Info) Description 06/29/2024 14:[address] [facility] 3 [place] [address] Jean Munoz MD 3 [place] [address] documented as of this encounter [...] HOURS NEEDED FOR WHEEZING/SHORTNESS OF BREATH DIRECTED. 06/30/2022 10/07/2022 documented as of this encounter Care Teams Cardiac Nurse Specialist Relationship Specialty Start Date End Date Jean Munoz MD 3 [place] [address] PCP - General 12/31/08 Manny Rizzo MD [address] [place] [phone] 04/20/10 Afia Valle MD 111 [facility], [facility] 2 [place] [address] Care Team Radiation Oncology 07/02/21 documented as of this encounter
--- OUTSIDE RECORDS SUMMARY | 2024-06-10 07:07 | XMS_ITS | Encounter Summary ---
Author Organization [facility] Address [address] [place] [address] Care Team Providers Care National Expansion Recruiter Name Role Phone Jean Munoz MD Primary Care Provider Manny Rizzo MD Unavailable Afia Valle MD Unavailable Reason for Visit * Reason Onset Date Comments Coordination Of Care 10/12/2022 Encounter Details Date Type Department Care Team (Late st Contact Info) Description 10/12/2022 Telephone [facility] 3 [place] [address] Jesi Leong [facility] 3 [place] [address] Coordination Of Care Social History [...] Telephone Encounter - Jesi Leong LICSW - 10/12/2022 1154 EST Primary Care Mental Health Integration Phone Encounter Liset was scheduled to meet w/ ashlyn television script writer at 11am via [employer] on this date. Liset doesn't arrive, attempted to reach her by phone, no answer and VM is full. Sent follow up text inviting her to call back before noon. No return contact as of noon. PLAN: Will ask [facility] scheduling to reach out to Liset to offer reschedule NPV with this television script writer. documented in this encounter Plan of Treatment Upcoming Encounters Date Type Department Care Team (Late st Contact Info) Description 06/29/2024 14:15 EDT Office Visit [facility] 3 [place], [place] [phone] Jean Munoz MD [address] [place] [address] documented as of this encounter Visit Diagnoses Not on filedocumented in this encounter Care Teams National Expansion Recruiter Relationship Specialty Start Date End Date Jean Munoz MD 3 [place] [address] PCP - General 12/31/08 Manny Rizzo MD [address] [place] [phone] 04/20/10 Afia Valle MD [address] [facility] 2 [place] [phone] MD Care Team Radiation Oncology 07/02/21 documented as of this encounter
--- OUTSIDE RECORDS SUMMARY | 2024-06-10 07:07 | XMS_ITS | Encounter Summary ---
Author Organization [facility] Address [address] [place] [address] Care Team Providers Care Recruitment Consultant Name Role Phone Jean Munoz MD Primary Care Provider Manny Rizzo MD Unavailable Afia Valle MD Unavailable Jesi Leong Unavailable [phone] Reason for Visit * Reason Onset Date Comments Paperwork request 06/30/2022 Amanda Huff DBA [employer] Encounter Details Date Type Department Care Team (Late st Contact Info) Description 06/30/2022 Telephone [facility] 3 [place] [address] Jean Munoz MD [address] [place] [address] Paperwork request (Amanda Huff DBA [employer]) Social History Tobacco Use Types Packs/Day Years [...] slept in a long-term (including now)? No 04/24/2021 Interpersonal Safety Answer [...] Telephone Encounter - Caroline Hsieh RN - 07/02/2022 0853 EDT Letter fixed and re-faxed to [employer]. CAROLINE DELGADILLO RN 07/02/2022 8:54 * Telephone Encounter - Caroline Hsieh RN - 06/30/2022 1249 EDT Faxed, pt notified. CAROLINE DELGADILLO RN 06/30/2022 12:49 * Telephone Encounter - Jean Munoz MD - 06/30/2022 1227 EDT Letter completed and printed, please fax, thanks. * Telephone Encounter - Saima Valle - 06/30/2022 1030 EDT Reason for Call: Paperwork request (Amanda Huff DBA [employer]) Summary/Symptoms: Pt states that electricity is going to be shut off today and is requesting a letter be sent to [employer] stating pt needs electricity for health issues. Please advise. Saima Valle 06/30/2022 10:30 documented in this encounter Plan of Treatment Upcoming Encounters Date Type Department Care Team (Late st Contact Info) Description 06/29/2024 14:15 EDT Office Visit [address] [address] Jean Munoz MD [address] [place] [address] documented as of this encounter Visit Diagnoses Not on filedocumented in this encounter Care Teams Recruitment Consultant Relationship Specialty Start Date End Date Jean Munoz MD [address] [place] [phone] PCP - General 12/31/08 Manny Rizzo MD [address] [place] [phone] 04/20/10 Afia Valle MD 111 [facility], [facility] 2 [place] [phone] Care Team Radiation Oncology 07/02/21 Jesi Leong, [facility] 3 [place] [address] Patent Paralegal 12/24/21 09/20/22 documented as of this encounter
--- OUTSIDE RECORDS SUMMARY | 2024-06-10 07:08 | XMS_ITS | Encounter Summary ---
Author Organization [facility] Address [address] [place] [address] Care Team Providers Care Telephoner Name Role Phone Jean Munoz MD Primary Care Provider Manny Rizzo MD Unavailable Afia Valle MD Unavailable Jesi Leong Unavailable Reason for Visit * Reason Onset Date Comments Lung Infection 05/15/2022 Encounter Details Date Type Department Care Team (Late st Contact Info) Description 05/15/[address] [facility] 3 [place] [address] Jean Munoz MD [address] [place] [address] Lung Infection Social History Tobacco Use Types Packs/Day Years [...] slept in a detention (including now)? No 04/24/2021 Interpersonal Safety Answer [...] encounter Miscellaneous Notes * Telephone Encounter - John Dodd MD - 05/15/2022 1655 EDT Spoke with front man Rad onc Dr. Rowan,. Her office will call patient and likely treat as outpatient, Iexplained that I was not comfortable with treating as I am not familiar with post radiation complications. Appreciate care from rad onc. John Dodd MD 05/15/2022 16:56 * Telephone Encounter - Fani Dickens RN - 05/15/2022 1646 EDT Secure chat with archie FRIEDMAN has deferred to PCP. Recommend UC/ED eval for symptoms. Called pt, recommended UC/ED eval, symptoms are concerning, need in-person eval. Patient verbalized understanding with no barriers to learning and agrees with plan of care. Plans to go to ED around 1900. Notified ED triage. FANI SPANGLER RN 05/15/2022 16:54 * Telephone Encounter - Fani Dickens RN - 05/15/2022 1452 EDT Cough, productive. Started 3 days ago. Yellow sputum. Coughing up big chunks at time. CT on 05/04, showed inflammation in R lung. Hx of lung CA. Temp of 101.3 F. Started yesterday afternoon. Oxygen 96% on room air. SOB increasing over the last few days. Pt able to speak in full sentences, able to ambulate without difficulty. Triage interrupted, pt asking for RN to call back in 15 min. Some pleuritic pain with inspiration. [facility]. Advised pt, if O2 sats drop <95% or for worsening symptoms, recommend ED eval. Patient verbalized understanding with no barriers to learning and agrees with plan of care. Routing to POD to review and advise. FANI SPANGLER RN 05/15/2022 15:09 * Telephone Encounter - Dianne Rowan - 05/15/2022 1443 EDT Reason for Call: Lung Infection Summary/Symptoms: Has a lung infection [place] Radiation ONC [place] Had a CT scan 05.04 CT showed inflammation in right lung She is now coughing up And blowing out her nose yellow mucous Asking for antibiotics DIANNE HARPAL 05/15/2022 14:43 documented in this encounter Plan of Treatment Upcoming Encounters Date Type Department Care Team (Late st Contact Info) Description 06/29/2024 14:15 EDT Office Visit [facility] 3 [place], [place] [phone] Jean Munoz MD [address] [place] [address] documented as of this encounter Visit Diagnoses Not on filedocumented in this encounter Care Teams Telephoner Relationship Specialty Start Date End Date Jean Munoz MD [address] [place] [address] PCP - General 12/31/08 Manny Rizzo MD [address] [place] [phone] 04/20/10 Afia Valle MD [address] [place] [address] 2 [place] [phone] MD Care Team Radiation Oncology 07/02/21 Jesi Leong, [facility] 3 [place] [address] Safe And Vault Installer 12/24/21 09/20/22 documented as of this encounter
--- OUTSIDE RECORDS SUMMARY | 2024-06-10 07:08 | XMS_ITS | Encounter Summary ---
Author Organization [facility] Address [address] [place] [address] Care Team Providers Care Hospitalist Physician Name Role Phone Jean Munoz MD Primary Care Provider Manny Rizzo MD Unavailable Afia Valle MD Unavailable Jesi Leong Unavailable Reason for Visit * Reason Comments Other Encounter Details Date Type Department Care Team (Late st Contact Info) Description 02/02/2022 Refill [facility] 3 [place] [address] Jean Munoz MD 3 [place] [address] Other Social History Tobacco Use Types Packs/Day Years [...] you have serious difficulty h earing? No 12/27/2016 Are you blind or do you have [...] 1 DOSE FOR MIGRAINE 9 Tablet 2 02/04/2022 05/11/2022 documented in this encounter Miscellaneous Notes * Telephone Encounter - Lizz Negro RN - 02/04/2022 1131 EDT Medication(s) Requested: imitrex 100 mg Preferred Pharmacy: [facility] Is patient out of medication? unknown Last Refill Date: 01/02/22 Last Visit Date with Ordering Provider: 11/26/21 Next Non-Acute Visit Date Scheduled with Care Team: 02/05/22 LIZZ NEGRO RN 02/04/2022 11:32 documented in this encounter Plan of Treatment Upcoming Encounters Date Type Department Care Team (Late st Contact Info) Description 06/29/2024 14:15 EDT Office Visit [facility] 3 [place] [address] Jean Munoz MD 3 [place] [phone] documented as of this encounter Visit Diagnoses [...] FOR UP TO 1 DOSE FOR MIGRAINE 01/02/2022 02/04/2022 documented as of this encounter Care Teams Hospitalist Physician Relationship Specialty Start Date End Date Jean Munoz MD [address] [place] [phone] PCP - General 12/31/08 Manny Rizzo MD [address] [place] [phone] 04/20/10 Afia Valle MD [address] [place] [address] 2 [place] [address] Care Team Radiation Oncology 07/02/21 Jesi Leong, [facility] [address] [place] [phone] Rubber Stamp Assembler 12/24/21 09/20/22 documented as of this encounter
--- OUTSIDE RECORDS SUMMARY | 2024-06-10 07:08 | XMS_ITS | Encounter Summary ---
Author Organization [facility] Address [address] [place] [address] Care Team Providers Care Sales Team Leader Name Role Phone Jean Munoz MD Primary Care Provider Manny Rizzo MD Unavailable Afia Valle MD Unavailable Jesi Leong Unavailable Reason for Visit * Reason Onset Date Comments Medications Refill 05/04/2022 Encounter Details Date Type Department Care Team (Late st Contact Info) Description 05/04/2022 Refill [facility] 3 [place] [address] Jean Munoz MD [address] [place] [address] Medications Refill Social History Tobacco [...] slept in a snf (including now)? No 04/24/2021 Interpersonal Safety Answer [...] FOR MIGRAINE 9 Tablet 2 05/11/2022 08/10/2022 pregabalin (LYRICA) 300 mg capsuleIndications:Sample Paster majo low back pain TAKE ONE CAPSULE BY MOUTH TWICE DAILY. daily max: 2 capsules 180 capsule 05/11/2022 08/13/2022 documented in this encounter Miscellaneous Notes * Telephone Encounter - Jean Munoz MD - 05/11/2022 1109 EDT Rx done. * Telephone Encounter - Caroline Hsieh RN - 05/11/2022 1100 EDT Images from the original note were not included. Last refill 02/10/22 #90 imitrex last refilled 02/04/22 * Telephone Encounter - Cathy Grullon - 05/11/2022 1036 EDT Medication(s) Requested: sumatriptan ,lyrica [facility] Is patient out of medication? Yes Last Refill Date: Last Visit Date with Ordering Provider: 02/05/22 Next Non-Acute Visit Date Scheduled with Care Team: 07/14/2022 Cathy Grullon 05/11/2022 10:36 documented in this encounter Plan of Treatment Upcoming Encounters Date Type Department Care Team (Late st Contact Info) Description 06/29/2024 14:15 EDT Office Visit [facility] 3 [place] [address] Jean Munoz MD [address] [place] [address] documented as of this encounter Visit Diagnoses Diagnosis Chronic low back pain Lumbago Migraine without status migrainosus, not intractable, unspecified [...] End Da te pregabalin (LYRICA) 300 mg capsuleIndications:Chron ic low back pain TAKE 1 CAPSULE BY MOUTH TWICE DAILY. DAILY MAX: 2 CAPSULES 09/26/2021 05/11/2022 SUMAtriptan (IMITREX) 100 mg tabletIndications:Migrai ne without status migrainosus, not intractable, unspecified migraine type tAKE 1 TABLET BY MOUTH ONCE NEEDED FOR UP TO 1 DOSE FOR MIGRAINE 02/04/2022 05/11/2022 documented as of this encounter Care Teams Sales Team Leader Relationship Specialty Start Date End Date Jean Munoz MD [address] [place] [address] PCP - General 12/31/08 Manny Rizzo MD [address] [place] [address] 04/20/10 Afia Valle MD [address] [place] [address] 2 [place] [phone] Care Team Radiation Oncology 07/02/21 Jesi Leong [facility] 3 [place] [address] Software Test Analyst 12/24/21 09/20/22 documented as of this encounter
--- OUTSIDE RECORDS SUMMARY | 2024-06-10 07:08 | XMS_ITS | Encounter Summary ---
Author Organization [facility] Address [address] [place] [address] Care Team Providers Care Coil Maker Name Role Phone Jean Munoz MD Primary Care Provider Manny Rizzo MD Unavailable Afia Valle MD Unavailable Jesi Leong Unavailable Reason for Visit * Reason Comments Other Encounter Details Date Type Department Care Team (Late st Contact Info) Description 01/31/2022 [facility] 3 [place] [address] Jean Munoz MD [address] [place] [address] Other Social History Tobacco Use [...] slept in a fpc (including now)? No 04/24/2021 Interpersonal Safety Answer [...] Info) Description 06/29/2024 14:15 EDT Office Visit [facility] 3 [place] [address] Jean Munoz MD [address] [place] [address] documented as of this encounter [...] colon documented in this encounter Care Teams Coil Maker Relationship Specialty Start Date End Date Jean Munoz MD [address] [place] [phone] PCP - General 12/31/08 Manny Rizzo MD [address] [place] [address] 04/20/10 Afia Valle MD [address] [place] [address] 2 [place] [phone] Care Team Radiation Oncology 07/02/21 Jesi Leong [facility] [address] [place] [phone] Stone Setter 12/24/21 09/20/22 documented as of this encounter
--- OUTSIDE RECORDS SUMMARY | 2024-06-10 07:08 | XMS_ITS | Encounter Summary ---
Author Organization [facility] Address [address] [place] [address] Care Team Providers Care Top Loader Name Role Phone Jean Munoz MD Primary Care Provider Manny Rizzo MD Unavailable Afia Valle MD Unavailable Jesi Leong MEND WORKER Unavailable [phone] Encounter Details Date Type Department Care Team (Late st Contact Info) Description 01/14/2022 [facility] Team [facility] [place] 3 [place] [address] Jesi Leong MEND WORKER 3 [place] [address] Social History Tobacco Use Types [...] slept in a mcc (including now)? No 04/24/2021 Interpersonal Safety Answer [...] Progress Notes * Jesi Leong LICSW - 01/14/2022 1315 EDT Social Work Human Resources Technician Follow Up Encounter Date: 01/14/2022 Social Work Human Resources Technician follow up with Liset by phone for continued resource navigation and support. TOPIC OF CONVERSATION: ??? Reviewed assessment and plan from previous visit with patient. ??? Discussed counseling, Liset hadn't seen JOSH e-mail 01/01/22 . Discussed two candidates and JOSH added IMELDA OlivasAlbin who is also available doing tele- therapy, trauma informed. ??? Liset expresses some family history themes today she hopes to address in therapy. Family trauma,loss, grief. ??? Liset shares recent oncology follow up; will continue to be seen every four months for finding in left lung. ??? Discussed housing applications. Liset continues to work through them. JOSH provides Liset what she can expect as next steps once she submits. ??? Discussed Dental, JOSH suggests [facility] in [place]; Liset will call [phone]. ??? Liset to call for eye exam. ??? Engaged patient in conversation related to positive behavior change, self- management, goal setting and action planning using motivational interviewing and active listening. Patient Identified SMART Goal:..Liset will call IMELDA OlivasAlbin phone [phone] by Wednesday to establish outpatient counseling. PLAN: ??? JOSH phone call February 04 at 1pm. .. [facility], [address] [place] [address] Total Time: Telephone: 50 mins, Chartin mins Referral: IMELDA OlivasAlbin Follow up: February 04, 2022 at 1pm via phone jaylen MORENO Status: Active documented in this encounter Plan of Treatment Upcoming Encounters Date Type Department Care Team (Late st Contact Info) Description 06/29/2024 14:15 EDT Office Visit [address] [address] Jean Munoz MD 3 [place] [address] documented as of this encounter Visit Diagnoses Not on filedocumented in this encounter Care Teams Top Loader Relationship Specialty Start Date End Date Jean Munoz MD 3 [place] [address] PCP - General 12/31/08 Manny Rizzo MD [address] [place] [phone] 04/20/10 Afia Valle MD [address] [place] [address] 2 [place] [phone] Care Team Radiation Oncology 07/02/21 Jesi Leong, [facility] 3 [place] [address] Human Resources Technician 12/24/21 09/20/22 documented as of this encounter
--- OUTSIDE RECORDS SUMMARY | 2024-06-10 07:08 | XMS_ITS | Encounter Summary ---
Author Organization [facility] Address [address] [place] [address] Care Team Providers Care High [employer] Social Studies Teacher Name Role Phone Jean Munoz MD Primary Care Provider Manny Rizzo MD Unavailable Afia Valle MD Unavailable Jesi Leong SALES REPRESENTATIVE LEATHER GOODS Unavailable Encounter Details Date Type Department Care Team (Late st Contact Info) Description 04/13/2022 Patient Outreach [facility] 3 [place] [address] Jesi Leong SALES REPRESENTATIVE [employer] 3 [place] [address] Social History Tobacco Use Types [...] Info) Description 06/29/2024 14:15 EDT Office Visit [facility] 3 [place] [address] Jean Munoz MD 3 [place] [address] documented as of this encounter Visit Diagnoses Not on filedocumented in this encounter Care Teams High School Social Studies Teacher Relationship Specialty Start Date End Date Jean Munoz MD [address] [place] [phone] PCP - General 12/31/08 Manny Rizzo MD [address] [place] [phone] 04/20/10 Afia Valle MD [address] [place] [address] 2 [place] [phone] Care Team Radiation Oncology 07/02/21 Jesi Leong, [facility] [address] [place] [address] Math Specialist 12/24/21 09/20/22 documented as of this encounter
--- OUTSIDE RECORDS SUMMARY | 2024-06-10 07:08 | XMS_ITS | Encounter Summary ---
Author Organization Health system Address [address] [place] [address] Care Team Providers Care Senior Ios Developer Name Role Phone Jean Munoz MD Primary Care Provider Manny Rizzo MD Unavailable Afia Valle MD Unavailable Jesi Leong DIRECTOR OF PHYSICAL SECURITY Unavailable Encounter Details Date Type Department Care Team (Late st Contact Info) Description 02/04/2022 Community Health Team [facility] Family Medicine - [place] 3 [place] [address] Jesi Leong DIRECTOR OF PHYSICAL SECURITY 3 [place] [address] Social History Tobacco Use Types [...] slept in a half-way (including now)? No 04/24/2021 Interpersonal Safety Answer [...] Progress Notes * Jesi Leong LICSW - 02/04/2022 1307 EDT Social Work Brand AttendantKettle Hand Encounter Date: 02/04/2022 Creative Project Manager phoned Liset around noon to confirm home visit on this date at 1pm. Liset shares not feeling well, fatigue, senior care assistant met with her earlier this week. Reflective on themes of trauma, hypervigilance. We agree to reschedule. PLAN: Rescheduled to February 24 at 215pm home visit. .. [facility], [address] [place] [address] Total Time: Telephone: 5 mins, Chartin mins Referral: n/a Follow up: February 24, 2022 at 2:15pm home visit w/ SW, intention to complete housing applications Status: Active documented in this encounter Plan of Treatment Upcoming Encounters Date Type Department Care Team (Late st Contact Info) Description 06/29/2024 14:15 EDT Office Visit [address] [phone] Jean Munoz MD [address] [place] [phone] documented as of this encounter Visit Diagnoses Not on filedocumented in this encounter Care Teams Senior Ios Developer Relationship Specialty Start Date End Date Jean Munoz MD [address] [place] [phone] PCP - General 12/31/08 Manny Rizzo MD [address] [place] [phone] 04/20/10 Afia Valle MD [address] [facility], [facility], Level 2 [place] [phone] Care Team Radiation Oncology 07/02/21 Jesi Leong, [facility] 3 [place] [address] Brand Attendant 12/24/21 09/20/22 documented as of this encounter
--- OUTSIDE RECORDS SUMMARY | 2024-06-10 07:08 | XMS_ITS | Encounter Summary ---
Author Organization [facility] Address [address] [place] [address] Care Team Providers Care Hull Inspector Name Role Phone Jean Munoz MD Primary Care Provider Manny Rizzo MD Unavailable Afia Valle MD Unavailable [phone] Jesi Leong Unavailable [phone] Reason for Visit * Reason Comments Other Encounter Details Date Type Department Care Team (Late st Contact Info) Description 01/30/2022 [facility] 3 [place] [address] Jean Munoz MD 3 [place] [address] Other Social History Tobacco Use [...] slept in a intermediate (including now)? No 04/24/2021 Interpersonal Safety Answer [...] for rosacea 90 Tablet 2 02/05/2022 11/09/2022 documented in this encounter Miscellaneous Notes * Telephone Encounter - Jean Munoz MD - 02/05/2022 1349 EDT Rx done. documented in this encounter Plan of Treatment Upcoming Encounters Date Type Department Care Team (Late st Contact Info) Description 06/29/2024 14:15 EDT Office Visit [facility] 3 [place] [address] Jean Munoz MD 3 [place] [address] documented as of this encounter [...] TABLET BY MOUTH EVERY DAY for rosacea 04/06/2021 02/05/2022 documented as of this encounter Care Teams Hull Inspector Relationship Specialty Start Date End Date Jean Munoz MD 3 [place] [address] PCP - General 12/31/08 Manny Rizzo MD [address] [place] [address] 04/20/10 Afia Valle MD [address] [place] [address] 2 [place] [phone] Care Team Radiation Oncology 07/02/21 Jesi Leong, [facility] [address] [place] [phone] Senior Software Development Engineer 12/24/21 09/20/22 documented as of this encounter
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
--- OUTSIDE RECORDS SUMMARY | 2024-06-10 07:08 | XMS_ITS | Encounter Summary ---
Author Organization [facility] Address [address] [place] [address] Care Team Providers Care Hydrologist Name Role Phone Jean Munoz MD Primary Care Provider Manny Rizzo MD Unavailable Afia Valle MD Unavailable [phone] Jesi Leong Unavailable [phone] Reason for Visit * Reason Onset Date Comments Cancer 05/15/2022 Encounter Details Date Type Department Care Team (Late st Contact Info) Description 05/15/2022 Telephone [facility] Radiation Oncology - Main [place] [address] [place], [place] [phone] Donis Mitchell, RN [address] [place] [address] Cancer Social History Tobacco Use Types Packs/Day Years [...] encounter Miscellaneous Notes * Telephone Encounter - Donis Mitchell RN - 05/15/2022 1261 EDT I received a call from Liset Viera this afternoon. Liset was treated with radiation therapy by in August 2021 for right upper lobe lung cancer. Today, Liset called to report that she is having cough productive of yellow sputum. She states that her temperature is 99.[address] Valle is on vacation and I reviewed her case with Dr. Ortega here in radiation oncology. Dr. Ortega is advising that the patient see her PCP to get treated for her respiratory symptoms. I spoke with Liset and she said she had already contacted Dr. Munoz office. Liset did say that her temperature has already increased to 101.3 F. I told her that she would likely have to go to urgent care/ED if she cannot get in for a PCP appointment today. We are entering into the long weekend. Liset had a chest CT done on 05/04/2022. documented in this encounter Plan of Treatment Upcoming Encounters Date Type Department Care Team (Late st Contact Info) Description 06/29/2024 14:15 EDT Office Visit [facility] 3 [place] [address] Jean Munoz MD 3 [place] [address] documented as of this encounter Visit Diagnoses Not on filedocumented in this encounter Care Teams Hydrologist Relationship Specialty Start Date End Date Jean Munoz MD 3 [place] [address] PCP - General 12/31/08 Manny Rizzo MD [address] [place] [address] 04/20/10 Afia Valle MD [address] [place] [address] 2 [place] [phone] Care Team Radiation Oncology 07/02/21 Jesi Leong, [facility] [address] [place] [phone] Public Improvement Inspector 12/24/21 09/20/22 documented as of this encounter
--- OUTSIDE RECORDS SUMMARY | 2024-06-10 07:08 | XMS_ITS | Encounter Summary ---
Author Organization [facility] Address [address] [place] [address] Care Team Providers Care Director Of Medical Review Name Role Phone Jean Munoz MD Primary Care Provider Manny Rizzo MD Unavailable Afia Valle MD Unavailable Jesi Leong GOLF CART ATTENDANT Unavailable SaloJesi shanks GOLF CART ATTENDANT Unavailable Reason for Visit * Reason Comments Other Encounter Details Date Type Department Care Team (Late st Contact Info) Description 03/10/2022 [facility] Family Medicine [facility] 3 [place] [address] Jean Munoz MD [address] [place] [phone] Other Social History Tobacco Use Types [...] for nausea 30 Tablet 1 03/11/2022 03/29/2023 documented in this encounter Plan of Treatment Upcoming Encounters Date Type Department Care Team (Late st Contact Info) Description 06/29/2024 14:15 EDT Office Visit [facility] 3 [place] [address] Jean Munoz MD [address] [place] [phone] documented as of this encounter Visit [...] MOUTH EVERY SIX HOURS NEEDED for nausea 12/05/2021 03/11/2022 documented as of this encounter Additional Health Concerns Infection Onset Date Last Indicated Resolved Time R/O COVID-19 05/15/2022 05/15/2022 05/20/2022 22:1 6 EDT R/O COVID-19 11/14/2022 11/14/2022 11/14/2022 19:1 6 EST documented as of this encounter Care Teams Director Of Medical Review Relationship Specialty Start Date End Date Jean uMnoz MD 3 [place] [address] PCP - General 12/31/08 Manny Rizzo MD [address] [place] [phone] 04/20/10 Afia Valle MD [address] [place] [address] 2 [place] [phone] MD Care Team Radiation Oncology 07/02/21 Jesi Leong [facility] 3 [place] [address] Blacksmith Supervisor 12/24/21 09/20/22 Jesi Leong [facility] 3 [place] [address] Behavioral Health Blacksmith SupervisorGuyline Operator Care 10/19/22 01/23/24 documented as of this encounter
--- OUTSIDE RECORDS SUMMARY | 2024-06-10 07:08 | XMS_ITS | Encounter Summary ---
Author Organization [facility] Address [address] [place] [address] Care Team Providers Care Edi Architect Name Role Phone Jean Munoz MD Primary Care Provider Manny Rizzo MD Unavailable Afia Valle MD Unavailable [phone] Jesi Leong Unavailable Reason for Visit * Reason Onset Date Comments Prior Auth, Medication 03/04/2022 Encounter Details Date Type Department Care Team (Late st Contact Info) Description 03/04/2022 Telephone [facility] 3 [place] [address] Jean Munoz MD [address] [place] [address] Prior Auth, Medication Social History [...] slept in a skilled nursing (including now)? No 04/24/2021 Interpersonal Safety Answer [...] Telephone Encounter - Kaitlyn Montero LPN - 03/04/2022 0813 EDT Medication: [employer] Insurance Co: [place] Medicaid Approval # (if applicable): [id number] Approval dates: 03/03/22-03/03/23 Name of Pharmacy notified: Nikolas MONTERO LPN documented in this encounter Plan of Treatment Upcoming Encounters Date Type Department Care Team (Late st Contact Info) Description 06/29/2024 14:15 EDT Office Visit [facility] Family Medicine [facility] 3 [place], [place] [phone] Jean Munoz MD [address] [place] [phone] documented as of this encounter Visit Diagnoses Not on filedocumented in this encounter Care Teams Edi Architect Relationship Specialty Start Date End Date Jean Munoz MD 3 [place] [address] PCP - General 12/31/08 Manny Rizzo MD [address] [place] [phone] 04/20/10 Afia Valle MD [address] [place] [address] 2 [place] [phone] Care Team Radiation Oncology 07/02/21 Jesi Leong, [facility] 3 [place] [address] Quality Assurance Supervisor Final 12/24/21 09/20/22 documented as of this encounter
--- OUTSIDE RECORDS SUMMARY | 2024-06-10 07:08 | XMS_ITS | Encounter Summary ---
Author Organization [facility] Address [address] [place] [address] Care Team Providers Care Cloth Trimmer Hand Name Role Phone Jean Munoz MD Primary Care Provider Manny Rizzo MD Unavailable Afia Valle MD Unavailable Jesi Leong Unavailable Reason for Visit * Reason Comments Other Encounter Details Date Type Department Care Team (Late st Contact Info) Description 02/28/2022 [facility] 3 [place] [address] Jean Munoz MD 3 [place] [address] Other Social History Tobacco Use [...] EDT Office Visit [facility] 3 [place] [address] Jean Munoz MD 3 [place] [address] documented as of this encounter [...] colon documented in this encounter Care Teams Cloth Trimmer Hand Relationship Specialty Start Date End Date Jean Munoz MD [address] [place] [phone] PCP - General 12/31/08 Manny Rizzo MD [address] [place] [address] 04/20/10 Afia Valle MD [address] [place] [address] 2 [place] [phone] Care Team Radiation Oncology 07/02/21 Jesi Leong [facility] [address] [place] [phone] Copper Flotation Operator 12/24/21 09/20/22 documented as of this encounter
--- OUTSIDE RECORDS SUMMARY | 2024-06-10 07:08 | XMS_ITS | Encounter Summary ---
Author Organization [facility] Address [address] [place] [address] Care Team Providers Care Deodorizer Operator Name Role Phone Jean Munoz MD Primary Care Provider Manny Rizzo MD Unavailable Afia Valle MD Unavailable Jesi Leong Unavailable [phone] Reason for Visit * Reason Onset Date Comments Follow-up 05/15/2022 Encounter Details Date Type Department Care Team (Late st Contact Info) Description 05/15/2022 Telephone [facility] Radiation Oncology - Main [place] [address] [place], [place] [phone] Donis Mitchell, RN [address] [place] [address] Follow-up Social History Tobacco Use Types Packs/Day [...] Encounter - Donis Mitchell RN - 05/15/2022 1711 EDT I attempted to call pt @ [address] Valverde (Radiation Oncology, covering doc) to discuss treatment of cough, yellow sputum and fever. Dr Valverde heard from pt's covering PCP that he would like Rad Onc to advise pt regarding these symptoms. Pt had Lung XRT for lung cancer in August 2021. There was no answer when I called pt x 2. I assume she is going to ED since that is what she was initially advised by PCP nursing staff. documented in this encounter Plan of Treatment Upcoming Encounters Date Type Department Care Team (Late st Contact Info) Description 06/29/2024 14:15 EDT Office Visit [facility] Medicine [facility] 3 [place] [address] Jean Munoz MD 3 [place] [address] documented as of this encounter Visit Diagnoses Not on filedocumented in this encounter Care Teams Deodorizer Operator Relationship Specialty Start Date End Date Jean Munoz MD 3 [place] [address] PCP - General 12/31/08 Manny Rizzo MD [address] [place] [phone] 04/20/10 Afia Valle MD [address] [place] 2 [place] [phone] MD Care Team Radiation Oncology 07/02/21 Jesi Leong, [facility] 3 [place] [address] Oracle Hyperion Consultant 12/24/21 09/20/22 documented as of this encounter
--- OUTSIDE RECORDS SUMMARY | 2024-06-10 07:08 | XMS_ITS | Encounter Summary ---
Author Organization [facility] Address [address] [place] [address] Care Team Providers Care Umbrella Frame Maker Name Role Phone Jean Munoz MD Primary Care Provider Manny Rizzo MD Unavailable Afia Valle MD Unavailable Jesi Leong FIRE INVESTIGATOR Unavailable [phone] Encounter Details Date Type Department Care Team (Late st Contact Info) Description 03/04/2022 Community Health Team [facility] [place] [facility] [place] [address] [place] [address] Jesi Leong FIRE INVESTIGATOR [address] [place] [phone] Social History Tobacco Use Types [...] Progress Notes * Jesi Leong LICSW - 03/04/2022 0939 EDT Social Work Manager Forms Follow Up Encounter Date: 03/04/2022 Social Work Manager Forms follow up with Liset by phone for continued resource navigation. TOPIC OF CONVERSATION: ??? Reviewed assessment and plan from previous visit with patient. ??? Liset discusses plans related to community partner engagement to support her goal for more time in her current rental. JOSH provided Liset with VERAP and Susan Del Valle at [facility] who can helpher apply for VERAP. Liset reflects on her desire for enough time to move her belongings to storage at minimum, reflecting she could go to [place] and stay w/ her daughter temporarily if really needed. ??? Liset reflects on her mood, denies plans for suicide but notes level of distress, felt like crawling in hole and burying myself. SW provides space for Liset to share her emotions. ??? Liset concerned too about her three cats if she has to leave her current rental. SW pending reply from Legal partner to inquire if hotels are covered the same under ADA / Fair Housing Act related to emotional support animals. ??? Engaged patient in conversation related to positive behavior change, self- management, goal setting and action planning using motivational interviewing and active listening. Patient Identified SMART Goal:..Liset will reach out to Susan Community Partner at [facility] [phone] to request assistance applying for VERAP by the end of this week. PLAN: Next call w/ JOSH March 10 at 1230pm .. Family Medicine [place], [address] [facility] Total Time: Telephone: 20 mins, Care Coord: 5 mins, Chartin mins Referral: Susan [facility] help w/ VERAP application Follow up: March 10, 2022 at 12:30pm via phone. Status: Active documented in this encounter Plan of Treatment Upcoming Encounters Date Type Department Care Team (Late st Contact Info) Description 06/29/2024 14:15 EDT Office Visit [facility] [place]note 2[place] [address] [place] [address] Jean Munoz MD [address] [place] [phone] documented as of this encounter Visit Diagnoses Not on filedocumented in this encounter Care Teams Umbrella Frame Maker Relationship Specialty Start Date End Date Jean Munoz MD [address] [place] [phone] PCP - General 12/31/08 [place] [address] [place] [phone] 04/20/10 Afia Valle MD [address] [place] [address], [facility] [address] [place] [phone] Care Team Radiation Oncology 07/02/21 Jesi Leong, [facility] [address] [place] [phone] Manager Forms 12/24/21 09/20/22 documented as of this encounter
--- OUTSIDE RECORDS SUMMARY | 2024-06-10 07:08 | XMS_ITS | Encounter Summary ---
Author Organization [facility] Address [address] [place] [address] Care Team Providers Care Gastrointestinal Technician Name Role Phone Jean Munoz MD Primary Care Provider Manny Rizzo MD Unavailable Afia Valle MD Unavailable Jesi Leong Unavailable Reason for Visit * Reason Comments Cough Arrives ambulatory t o triage with reports of increased SOB/productive cough, congestion. Tmax at home 101.3 Hx Lung CA- last radiation august 2021. Denies CP. N/V. Endorses heaviness to lungs. Symptoms started wednesday evening and have increasingly gotten worse. VSS in triage- Afebrile and O2 sat 97% on RA- increased WOB noted Encounter Details Date Type Department Care Team (Late st Contact Info) Description 05/15/2022 20:40 EDT - 05/15/2022 23:59 EDT Emergency [facility] Emergency Department - Main [place] [address], [place] [id number] Felicita Portillo MD [address] [facility], [facility], [address] [place] [address] COPD with acute exacerbation ([facility]) (HCC) ([facility]) (Primary Dx); Acute bronchitis, unspecified organism Discharge Disposition: Home or Self Care Social [...] 20:00 EDT documented as of this encounter Last Filed Vital Signs Vital Sign Reading Time Taken Comments Blood Pressure 112/70 05/15/20222329 EDT Pulse 89 05/15/20222329 EDT Temperature 36.8 ??C (98.2 ??F) 05/15/20222329 EDT Respiratory Rate - - Oxygen Saturation 96% 05/15/20222329 EDT Inhaled Oxygen Concentration - - Weight 72.6 kg (160 lb) 05/15/20221958 EDT Height - - Body Mass Index 27.83 05/12/2022 1501 EDT documented in this encounter Functional Status [...] this encounter Discharge Instructions * Discharge Instructions* Felicita Portillo MD - 05/15/2022 23:50 EDT Your COVID and flu tests were negative. Your chest xray does not show any pneumonia, but with your underlying COPD and fever, I have started you on antibiotics for possible bacterial cause. You should use your nebulizer every 4hrs over the next two days. Your next dose of steroid and antibiotic is due tomorrow night. * Attachments The following attachments cannot be sent through Care Everywhere. * Bronchitis (Cameroonian) * COPD: Prevent Lung Infections: General Info (Cameroonian) documented in this encounter Medications at Time of Discharge Medication Sig Dispensed Refills Start Date End Date docusate sodium (COLACE) 100 mg capsule Take 1 Capsule by mouth 2 times daily as needed for Constipation. 09/24/2010 azithromycin (ZITHROMAX Z-OLI) 250 mg tablet Take 1 Tablet by mouth SEE ADMIN INSTRUCTIONS for 4 days. 4 Tablet 05/15/2022 05/19/2022 blood glucose (BLOOD GLUCOSE TEST) test stripsIndications:Impa ired glucose tolerance 1 Strip by [facility] (non-drug; combo route) route 2 times daily. [...] EVERY DAY for allergies 90 Tablet 4 08/26/2021 07/06/2022 fluticasone propion-salmeteroL (ADVAIR HFA) 230-21 mcg/actuation inhalerIndications:Jarquin lobular emphysema (HCC-CMS) INHALE TWO PUFFS BY MOUTH TWICE DAILY as directed 16 g 5 02/07/2022 01/27/2023 HYDROcodone-acetaminop hen (NORCO) 7.5-325 mg per tabletIndications:Manager Paper majo pain syndrome,Chronic use of opiate for therapeutic purpose,Pain medication agreement Take 1 Tablet by mouth every 6 hours as needed for up to 28 days for Pain. For chronic pain. Daily Max: 4 Tablets 112 Tablet 06/20/2022 07/06/2022 HYDROcodone-acetaminop hen (NORCO) 7.5-325 mg per tabletIndications:Manager Paper majo 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 For chronic pain. Daily Max: 4 Tablets 112 Tablet 05/23/2022 07/06/2022 HYDROcodone-acetaminop hen (NORCO) 7.5-325 mg per tabletIndications:Manager Paper majo pain syndrome,Chronic use of opiate for therapeutic purpose,Pain medication agreement Take 1 Tablet by mouth every 6 hours as needed for up to 28 days for Pain. For chronic pain. May fill on 12/06/2021. Daily Max: 4 Tablets 112 Tablet 04/25/2022 07/06/2022 hydroxypropyl methylcellulose (ISOPTO TEARS) 0.5 % ophthalmic [...] wheezing as directed. for shortness of breath 45 g 3 05/29/2021 06/30/2022 lidocaine (XYLOCAINE) 2 % solution 5 ML, mixed with 5 ml mylanta or maalox, swish and swallow for swallowing pain. 100 mL 2 08/19/2021 01/19/2023 methocarbamoL (ROBAXIN) 500 mg tabletIndications:Manager Paper majo pain syndrome Take 2 Tablets by mouth at bedtime. 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 For narcolepsy. 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 For narcolepsy. 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 For narcolepsy. 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 For narcolepsy. 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 For narcolepsy. 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 For narcolepsy. Daily Max: 10 mg 28 Tablet 04/25/2022 07/06/2022 montelukast (SINGULAIR) 10 mg tabletIndications:Nakul rgic rhinitis, [...] PLUS LANCET 33 gauge misc 07/10/2021 024 predniSONE (DELTASONE) 20 mg tablet Take 2 Tablets by mouth daily for 5 days. 10 Tablet 05/15/2022 05/20/2022 pregabalin (LYRICA) 300 mg capsuleIndications:Chr onic low back pain TAKE ONE CAPSULE BY MOUTH TWICE DAILY. daily max: 2 capsules 180 capsule 05/11/2022 08/13/2022 promethazine (PHENERGAN) 25 mg tabletIndications:Naus ea TAKE ONE TABLET BY MOUTH EVERY SIX HOURS NEEDED for nausea 30 Tablet 1 03/11/2022 03/29/2023 roflumilast (DALIRESP) 500 mcg tabletIndications:Manager Paper majo obstructive pulmonary disease, unspecified COPD type [...] days. For insomnia. Daily Max: 5 mg 28 Tablet 04/25/2022 05/25/2022 documented as of this encounter Ordered Prescriptions Prescription Sig Dispensed Refills Start Date End Da te azithromycin (ZITHROMAX Z-OLI) 250 mg tablet Take 1 Tablet by mouth SEE ADMIN INSTRUCTIONS for 4 days. 4 Tablet 05/15/2022 05/19/2022 azithromycin (ZITHROMAX Z-OLI) 250 mg tablet Take 1 Tablet by mouth SEE ADMIN INSTRUCTIONS for 5 days. Take 2 tabs today and 1 tab on days 2 through 5 6 Tablet 05/15/2022 05/15/2022 predniSONE (DELTASONE) 20 mg tablet Take 2 Tablets by mouth daily for 5 days. 10 Tablet 05/15/2022 05/20/2022 documented in this encounter Discharge Disposition Disposition Code Departure Means Destination Home or Self Long-Term documented in this encounter ED Notes * Isela Duarte RN - 05/15/2022 7791 EDT Patient does not want to wait for neb I've been here too long all ready, I can do that at home Mita burns * Felicita Portillo MD - 05/15/2022 2253 EDT Emergency Department Visit This documentation is recorded by Boyd Herrera acting as Scribe under the direction and presence of Felicita Portillo MD. Felicita Portillo MD: I personally performed the services recorded by the scribe in my presence. I confirm the scribe's documentation has been reviewed by me to accurately and completely record my work, treatment, procedures, and medical decision making. Assessment and ED Course Patient is a 61F with COPD, h/o lung cancer, not home oxygen dependent. She has no increased WOB and no hypoxia. She is quite wheezy and likely need a course of steroids. She was offered neb treatment in the ED but declined as she wanted to get home. Given her fever and COPD, have started her on azithromycin. (She was given doxy initially but she is on doxy for rosacea.) Her mild hypernatremia is asymptomatic, possibly related to mild dehydration. eGFR and creatinine are 50% above her last three years ago (although still normal.) She was encouraged to return for any worsening symptoms. Relevant Data as of May 15 [id number] 15, [id number] WBC: 11.50 [JV] 6 Troponin I (ng/mL): <0.034 [JV] 2336 Sodium(!): 150 [JV] 2336 COVID-19 rt-PCR Result: Negative [JV] Relevant Data User Index [JV] Felicita Portillo MD XR CHEST 2 VIEWS Preliminary Result 1. No evidence of acute abnormality. 2. Stable appearance of the coarse opacities in the right apex, likely related to radiation. Final diagnoses: COPD with acute exacerbation ([facility]) (HCC) Acute bronchitis, unspecified organism Disposition: Discharged Prior to discharge usual and customary precautions were reviewed with the patient and/or family including follow-up instructions and reasons to return to the Emergency Department if condition worsens, does not improve as expected, or other new concerns arise. Chief complaint: Chief Complaint Patient presents with ??? Cough Arrives ambulatory to triage with reports of increased SOB/productive cough, congestion. Tmax at home 101.3 Hx Lung CA- last radiation august 2021. Denies CP. N/V. Endorses heaviness to lungs. Symptoms started wednesday evening and have increasingly gotten worse. VSS in triage- Afebrile and O2 sat 97% on RA- increased WOB noted HPI Liset Meadows is a 61 y.o. 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 She has long-standing COPD, not home O2 dependent. Also a history of lung cancer, in remission, s/o chemo and XRT last year. She has had a worsening cough, increasing mild SOB for three days, now with fever for one day. No chest pain, no nausea or vomiting. She is COVID vaccinated. No myalgias, arthralgias. No runny nose or sinus congestion. Not currently on steroids. History was provided by: Patient and medical record Patient's pertinent PMH, FH, SH were reviewed and edited as necessary. ROS A 10-point review of systems was performed. The patient answered negative to all questions with theexceptions of those explicitly detailed as positives in the HPI. Pertinent negatives are also explicitly stated. Physical Exam BP 107/68 Pulse 91 Temp 36.8 ??C (98.2 ??F) (Oral) Wt 72.6 kg (160 lb) LMP 01/11/1987 SpO2 97% BMI 27.83 kg/m?? A medical screening exam was performed. Physical Exam Nursing notes and vital signs were reviewed. Constitutional: Well appearing in no acute distress HEENT: Normocephalic, atraumatic. Oropharynx and posterior pharynx clear. Neck: Supple Cardiac: RRR. +2 radial pulse, no peripheral edema Lungs: Normal work of breathing, CTAB, no crackles. Coarse rhonchi in bases with moderate end expiratory wheezing Abdomen: Soft, nontender, nondistended Skin: Warm, dry, no rashes on exposed skin Extremities: Moving spontaneously, no obvious injuries Neuro: Clear speech, moving all extremities, CNII-XII grossly intact. Normal coordination. Psych: Normal affect, normal throught process. An EKG was obtained and independently interpreted. Imaging obtained was reviewed and independently interpreted. Laboratory data was reviewed and independently interpreted. EKG- SR @ 83, normal axis, normal R wave progression, no ectopy. No ST changes or TWI. Procedures Procedures * Isela Duarte RN - 05/15/20222052 EDT Patient states recent CT of chest showed inflammation. Her oncologist asked if she was coughing up anything and at the time not. Now has productive yellow sputum. Patient denies smoking, but smellsheavily of cigarettes (secondhand smoke per patient). Speaking fulls sentences, no cough noted * Jayro Queen RN - 05/15/20222012 EDT 12 Lead EKG Performed by JAYRO QUEEN RN and shown to Dr. Singer documented in this encounter Plan of Treatment Upcoming Encounters Date Type Department Care Team (Late st Contact Info) Description 06/29/2024 14:15 EDT Office Visit [facility] [address] [place] [address] Jean Munoz MD [address] [place] [phone] Scheduled Orders Name Type Priority Associated Diagnoses Orde r Schedule EKG 12-LEAD ECG STAT One Time for 1 Occurrences starting 05/15/2022 until 05/15/2022 documented as of this encounter Procedures Procedure Name Priority Date/Time Associated Diagnosis Comments ECG REPORT - SCANNED 05/19/2022 20:00 EDT ECG REPORT - SCANNED 05/19/2022 20:00 EDT TROPONIN I STAT 05/15/2022 22:56 EDT COMPLETE BLOOD COUNT AND DIFFERENTIAL STAT 05/15/2022 22:56 EDT MAGNESIUM STAT 05/15/2022 22:56 EDT BASIC METABOLIC PANEL (BMP) STAT 05/15/2022 22:56 EDT XR CHEST 2 VIEWS STAT 05/15/2022 22:4 2 EDT EKG 12-LEAD STAT 05/15/2022 20:03 EDT ZZCOVID-19 TEST [facility] PCR STAT 05/15/2022 20:02 EDT COVID-19 TESTING STAT 05/15/2022 20:0 2 EDT ZZHN INFLUENZA A AND B, RSV PCR STAT 05/15/2022 20:02 EDT documented in this encounter Results * ECG REPORT - SCANNED (05/19/2022 20:00 EDT) 05/19/2022 20:0 0 EDT Scan 2 Contracts Specialist PROCEDURE/MINOR GURU GICAL ORDERABLES * ECG REPORT - SCANNED (05/19/2022 20:00 EDT) 05/19/2022 20:0 0 EDT Scan 2 Contracts Specialist PROCEDURE/MINOR GURU GICAL ORDERABLES * MAGNESIUM (05/15/2022 22:56 EDT) Magnesium 2.4 1.7 - 2.8 mg/dL 05/15/2022 23:14 EDT [facility] Blood VENOUS BLOOD / Unknown Venipuncture / Unknown 05/15/2022 22:56 EDT 05/15/2022 22:59 EDT Felicita Portillo MD CHEMISTRY & BLOOD GA S ORDERABLES Performing Organization Address City/[facility]/ZIP Co de Phone Number [facility] [address] [place] [address] * TROPONIN I (05/15/2022 22:56 EDT) Troponin I (ng/mL) <0.034 <0.034 ng/mL 05/15/2022 23:29 EDT [facility] Blood VENOUS BLOOD / Unknown Venipuncture / Unknown 05/15/2022 22:56 EDT 05/15/2022 22:59 EDT Narrative [facility] - 05/15/2022 23:29 EDT The results of this assay can be falsely lowered due to the consumption of Biotin. Felicita Portillo MD CHEMISTRY & BLOOD GA S ORDERABLES Performing Organization Address City/[facility]/ZIP Co de Phone Number [facility] [address] [place] [address] * (ABNORMAL) BASIC METABOLIC PANEL (BMP) (05/15/2022 22:56 EDT) Sodium 150(H) 136 - 145 mmol/L 05/15/2022 23:14 EDT [facility] Potassium 3.9 3.5 - 5.0 mmol/L 05/15/2022 23:14 [facility] Chloride 112(H) 96 - 110 mmol/L 05/15/2022 23:14 [facility] CO2 Total 23 22 - 32 mmol/L 05/15/2022 23:14 [facility] Anion Gap 15(H) 5 - 14 05/15/2022 23:14 [facility] Glucose 115(H) 70 - 100 mg/dL 05/15/2022 23:14 [facility] Calcium 9.1 8.5 - 10.5 mg/dL 05/15/2022 23:14 [facility] BUN 17 10 - 26 mg/dL 05/15/2022 23:14 [facility] Creatinine 0.93 0.52 - 1.04 mg/dL 05/15/2022 23:14 [facility] eGFR 69 >60 mL/min/1.73 m2 05/15/2022 23:14 [facility] Blood VENOUS BLOOD / Unknown Venipuncture / Unknown 05/15/2022 22:56 EDT 05/15/2022 22:59 EDT Felicita Portillo MD CHEMISTRY & BLOOD GA S ORDERABLES Performing Organization Address City/State/[facility] Co de Phone Number [facility] [address] [place] [address] * (ABNORMAL) COMPLETE BLOOD COUNT AND DIFFERENTIAL (05/15/2022 22:56 EDT) WBC 11.50 4.00 - 12.40 K/cmm 05/15/2022 23:19 [facility] RBC 4.18 3.86 - 5.04 M/cmm 05/15/2022 23:19 [facility] Hemoglobin 13.1 11.6 - 15.2 gm/dL 05/15/2022 23:19 [facility] HCT 38.3 34.9 - 44.4 % 05/15/2022 23:19 [facility] MCV 92 81 - 98 fl 05/15/2022 23:19 [facility] MCH 31.3 26.7 - 33.3 pg 05/15/2022 23:19 [facility] MCHC 34.2 32.1 - 35.9 gm/dL 05/15/2022 23:19 [facility] RDW-CV 14.8(H) <14.7 % 05/15/2022 23:19 [facility] RDW-SD 50.0 <50.4 fl 05/15/2022 23:19 [facility] PLT 360 141 - 377 K/cmm 05/15/2022 23:19 [facility] MPV 9.8 9.5 - 12.7 fl 05/15/2022 23:19 [facility] % Neutrophils 68.2 % 05/15/2022 23:19 [facility] % Lymphocytes 18.1 % 05/15/2022 23:19 [facility] % Monocytes 9.6 % 05/15/2022 23:19 [facility] % Eosinophils 3.3 % 05/15/2022 23:19 [facility] % Basophils 0.5 % 05/15/2022 23:19 [facility] % Immature Grans 0.3 % 05/15/20 23:19 [facility] Absolute Neutrophils 7.85 2.20 - 8.85 K/cmm 05/15/2022 23:19 [facility] Absolute Lymphocytes 2.08 1.09 - 3.30 K/cmm 05/15/2022 23:19 [facility] Absolute Monocytes 1.10(H) 0.10 - 0.80 K/cmm 05/15/2022 23:19 [facility] Absolute Eosinophils 0.38 0.03 - 0.61 K/cmm 05/15/2022 23:19 [facility] ABS Basophils 0.06 0.01 - 0.11 K/cmm 05/15/2022 23:19 [facility] Absolute Immature Grans 0.03 0.00 - 0.06 K/cmm 05/15/2022 23:19 EDT [facility] Type of Differential: Auto 05/15/2022 23:19 EDT [facility] Blood VENOUS BLOOD / Unknown Venipuncture / Unknown 05/15/2022 22:56 EDT 05/15/2022 22:59 EDT Felicita Portillo MD PACKAGES & DNA PROBE ORDERABLES [facility] [address] [place] [address] * XR CHEST 2 VIEWS (05/15/2022 22:42 EDT) Anatomical Region Laterality Modality Computed Radiogr aphy 05/16/2022 9:12 EDT Impressions 05/16/2022 9:12 EDT 1. ??No evidence of acute abnormality. 2. ??Stable appearance of the coarse opacities in the right apex, likely related to radiation. I have personally reviewed the images and the above interpretation and agree with the findings. Narrative 05/16/2022 9:12 EDT XR CHEST 2 VIEWS ??05/15/2022 10:30 PM CLINICAL HISTORY/COMMENTS: cough, SOB, h/o lung cancer COMPARISON: CT chest 05/04/2022. TECHNIQUE: Frontal and lateral views of the chest. FINDINGS: Soft tissues and extrathoracic findings: ??No abnormalities. Bones: Status post ACDF spanning C4-C7. Cardiac and mediastinal contours: Normal. Lungs: Pulmonary vasculature is normal. Coarse opacities within the right apex, likely related to radiation. The lungs are otherwise clear. ?? Pleura/diaphragms: Normal. Procedure Note Dieudonne Dias MD - 05/16/2022 XR CHEST 2 VIEWS 05/15/2022 10:30 PM CLINICAL HISTORY/COMMENTS: cough, SOB, h/o lung cancer COMPARISON: CT chest 05/04/2022. TECHNIQUE: Frontal and lateral views of the chest. FINDINGS: Soft tissues and extrathoracic findings: No abnormalities. Bones: Status post ACDF spanning C4-C7. Cardiac and mediastinal contours: Normal. Lungs: Pulmonary vasculature is normal. Coarse opacities within the rightapex, likely related to radiation. The lungs are otherwise clear. Pleura/diaphragms: Normal. IMPRESSION 1. No evidence of acute abnormality. 2. Stable appearance of the coarse opacities in the right apex, likelyrelated to radiation. I have personally reviewed the images and the above interpretation andagree with the findings. Felicita Portillo MD IMG DIAGNOSTIC IMAGI NG ORDERABLES * EKG 12-LEAD (05/15/2022 20:03 EDT) 05/15/2022 20:0 3 EDT Narrative [facility] - 05/19/2022 13:20 EDT ?[facility] Emergency ? Test Date: ?2022-05-15 Pat Name: ? LISET MEADOWS ?Department: ?? ED ? Room: ? Gender: ? Female ? 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 : ?1960 ? Requested By: PADILLA Gamez Order Number: [id number] ? Reading : ?? HILARY STEPHENSON MD ? Measurements Intervals ?[place] ? Rate: ? 83 ? P: ?74 [place]: ? 145 ?QRS: ?46 QRSD: ? 90 ? T: ?55 QT: ? 380 ? QTc: ?447 ? Interpretive Statements SINUS RHYTHM Compared to ECG 10/18/2019 15:43:26 No significant changes I reviewed the tracing and have either agreed or edited the findings in this report. Electronically Signed On 05-19-2022 13:20:38 EDT by HILARY STEPHENSON MD. 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 Electronically Signed On 05-19-2022 13:20:38 EDT by HILARY PERAZA. Prema Curiel MD CARDIAC ECG ORDERABL ES Performing Organization Address City/[facility]/ZIP Co de Phone Number [facility] * COVID-19 TEST [facility] PCR (05/15/2022 20:02 EDT) Swab ENTIRE NASOPHARYNX / Unknown Swab / Unknown 05/15/2022 20:02 EDT 05/15/2022 20:11 EDT Prema Curiel MD MICROBIOLOGY - GENER AL ORDERABLES [facility] [address] [place] [phone] * COVID-19 TESTING (05/15/2022 20:02 EDT) COVID-19 rt-PCR Result Negative Negative 05/15/2022 21:12 EDT [facility] Comment: This test has not [...] history, and epidemiological information. Performed on the [employer] GeneXpert Instrument Performing Lab GeneXpert [facility] 05/15/2022 21:12 EDT [facility] Swab ENTIRE NASOPHARYNX / Unknown Swab / Unknown 05/15/2022 20:02 EDT 05/15/2022 20:11 EDT Prema Curiel MD MICROBIOLOGY - GENER AL ORDERABLES Performing Organization Address City/[facility] Co de Phone Number [facility] [address] [place] [address] * INFLUENZA A AND B,RSV PCR (05/15/2022 20:02 EDT) FLU A RNA Result (FLARES) Negative Negative 05/15/2022 21:12 EDT [facility] FLU B RNA Result (FLBRES) Negative Negative 05/15/2022 21:12 EDT [facility] RSV RNA Result (RSVRES) Negative Negative 05/15/2022 21:12 EDT [facility] Swab ENTIRE NASOPHARYNX / Unknown Swab / Unknown 05/15/2022 20:02 EDT 05/15/2022 20:11 EDT Prema Curiel MD MICROBIOLOGY - GENER AL ORDERABLES Performing Organization Address [facility] Co de Phone Number [facility] [address] [place] [address] documented in this encounter Visit Diagnoses Diagnosis COPD with acute exacerbation ([facility])- Primary Obstructive chronic bronchitis with exacerbation Acute bronchitis, unspecified organism Screening for osteoporosis- Primary Special screening for [...] MAR Action Action Date Dose Rate Site azithromycin (ZITHROMAX) tablet 500 mg 500 mg, oral, NOW X1, 1 dose, On 05/16/22 at 0000, STAT Given 05/15/2022 23:55 EDT 500 mg doxycycline (VIBRA-TABS) tablet 100 mg 100 mg, oral, NOW X1, 1 dose, On 05/15/22 at 2345, STAT Given 05/15/2022 23:42 EDT 100 mg predniSONE (DELTASONE) tablet 60 mg 60 mg, oral, NOW X1, 1 dose, On Wed05/15/22 at 2345, STAT Given 05/15/2022 23:42 EDT 60 mg documented in this encounter Discontinued Medications Medication Sig Discontinue Reason Start Date End Da te azithromycin (ZITHROMAX Z-OLI) 250 mg tablet Take 1 Tablet by mouth SEE ADMIN INSTRUCTIONS for 5 days. Take 2 tabs today and 1 tab on days 2 through 5 Reorder 05/15/2022 05/15/2022 documented as of this encounter Active and Recently Administered Medications Times are shown in EDT. Scheduled Medication Order 05/13/2022 05/14/2022 05/15/2022 azithromycin (ZITHROMAX) tablet 500 mg (COMPLETED) 500 mg, oral, NOW X1, 1 dose, On 05/16/22 at 0000, STAT 2355 (Given - Provid er: Isela Duarte RN) doxycycline (VIBRA-TABS) tablet 100 mg (COMPLETED) 100 mg, oral, NOW X1, 1 dose, On Wed05/15/22 at 2345, STAT 2342 (Given - Provid er: Isela Duarte RN) ipratropium-albuteroL (DUONEB) 0.5 mg-3 mg(2.5 mg base)/3 mL nebulizer solution 3 mL 3 mL, nebulization, NOW X1, 1 dose, On Wed05/15/22 at 2345, STAT 2345 (Not Given - Pr ovider: Isela Duarte RN - Reason: Patient/family refused) predniSONE (DELTASONE) tablet 60 mg (COMPLETED) 60 mg, oral, NOW X1, 1 dose, On Wed05/15/22 at 2345, STAT 2342 (Given - Provid er: Isela Duarte, RN) documented in this encounter Orders Medications Ordered That Victor Manuel ht Not Have Been Administered Count Last Ordered Date First Ordered Date ipratropium-albuteroL (DUONE B) 0.5 mg-3 mg(2.5 mg base)/3 mL nebulizer solution 3 mL 1 05/15/2022 documented in this encounter Additional Health Concerns Infection Onset Date Last Indicated Resolved Time R/O COVID-19 05/15/2022 05/15/2022 05/20/2022 22:1 6 EDT documented as of this encounter Care Teams Gastrointestinal Technician Relationship Specialty Start Date End Date Jean Munoz MD [address] [place] [address] PCP - General 12/31/08 Manny Rizzo MD [address] [place] [phone] 04/20/10 Afia Valle MD [address] [facility] 2 [place] [phone] Care Team Radiation Oncology 07/02/21 Jesi Leong, [facility] [address] [place] [address] Sales Operations Assistant 12/24/21 09/20/22 documented as of this encounter
--- OUTSIDE RECORDS SUMMARY | 2024-06-10 07:08 | XMS_ITS | Encounter Summary ---
Author Organization [facility] Address [address] [place] [address] Care Team Providers Care Dividing Machine Operator Helper Name Role Phone Jean Munoz MD Primary Care Provider Manny Rizzo MD Unavailable Afia Valle MD Unavailable [phone] Jesi Leong ENGLISH LECTURER Unavailable Encounter Details Date Type Department Care Team (Late st Contact Info) Description 03/25/[address] [facility] Family Medicine - [place] [address] [place] [address] Jesi Leong ENGLISH LECTURER [address] [place] [address] Social History Tobacco Use Types [...] place to sleep or slept in a usp (including now)? No 04/24/2021 Interpersonal Safety Answer [...] Progress Notes * Jesi Leong LICSW - 03/25/2022 1034 EDT [facility] Care Management Follow Up Family And Consumer Sciences Professor followed up with Liset by phone for continued resource navigation support. TOPIC OF CONVERSATION: ??? Reviewed assessment and plan from previous visit with patient. ??? Phoned [employer], Alfonzo, Pipe Stem Repairer. Discussed guidance related to housing. ??? Phoned act tutor, redirected to Victim's Comp; Kandice is claims administrator, not in office today. Liset to receive call back re: Victim's Comp helping w/ [employer] Rent. ??? Discussed VERAP, learn [facility] can no longer help, sent referral to Helpline out of [place] Pump And Blower Operator, accepted and helping Liset (worker assigned: Lakshmi Perez phone [phone]. ??? Engaged patient in conversation related to positive behavior change, self- management, goal setting and action planning using motivational interviewing and active listening. Prioritized Patient Identified Goals: 1. Prior goal: Liset will reach out to Susan Community Partner at [facility] [phone] to request assistance applying for VERAP Achievement towards goals: Learn Susan can no longer assist; Lakshmi Perez, Pump And Blower Operator assisting Liset w/ VERAP robina. 2. Prior goal: Liset agrees to reach out to Jasmin Mulligan [facility] to discuss starting counseling. Achievement towards goals: Housing focus today; unable to assess status of this goal (Liset had previously left [facility] to start counseling). 3. CONTINUED GOAL: Support Liset in resource navigation to maintain safe housing. Plan: This internal communications writer will follow up with Liset no later than week of April 06. FADUMO PINEDA 03/25/2022 10:35 documented in this encounter Plan of Treatment Upcoming Encounters Date Type Department Care Team (Late st Contact Info) Description 06/29/2024 14:15 EDT Office Visit [facility] [address] [place] [address] Jean Munoz MD [address] [place] [phone] documented as of this encounter Visit Diagnoses Not on filedocumented in this encounter Care Teams Dividing Machine Operator Helper Relationship Specialty Start Date End Date Jean Munoz MD [address] [place] [phone] PCP - General 12/31/08 Manny Rizzo MD [address] [place] [phone] 04/20/10 Afia Valle MD [address] [place] [address] 2 [place] [phone] Care Team Radiation Oncology 07/02/21 Jesi Leong, [facility] [address] [place] [phone] Family And Consumer Sciences Professor 12/24/21 09/20/22 documented as of this encounter
--- OUTSIDE RECORDS SUMMARY | 2024-06-10 07:08 | XMS_ITS | Encounter Summary ---
Author Organization [facility] Address [address] [place] [address] Care Team Providers Care Stave Grader Name Role Phone Jean Munoz MD Primary Care Provider Manny Rizzo MD Unavailable Afia Valle MD Unavailable Jesi Leong Unavailable Reason for Visit * Reason Onset Date Comments Letter 04/29/2022 power shut off t henry at 2:00 p.m. Encounter Details Date Type Department Care Team (Late st Contact Info) Description 04/29/2022 Telephone [facility] [address] [place] [address] Jean Munoz MD [address] [place] [phone] Letter (power shut off today at 2:00 p.m. ) Social History Tobacco Use Types Packs/Day Years [...] encounter Miscellaneous Notes * Telephone Encounter - Kirk Ferrer RN - 04/30/2022 1303 EDT Letter sent to Liset via [employer]- she is aware and has no further questions KIRK FERRER RN 04/30/2022 13:03 * Telephone Encounter - Jean Munoz MD - 04/30/2022 1241 EDT Letter done. * Telephone Encounter - Gabby Beltran - 04/30/2022 0940 EDT Pt following up - asking for letter - states they are coming at noon to shut off power * Telephone Encounter - Dot Patel - 04/29/2022 1136 EDT Reason for Call: Letter (power shut off today at 2:00 p.m. ) Summary/Symptoms: Patient is asking the Dr Munoz to contact [facility] today, as they are shutting her power off it at 2:00 p.m today. She states they did not warn her before this. She is not getting allof her mail right now, so did not receive a notice. Patient states she has lung cancer and needs to have a nebulizer to use. Patient would like a call back as soon as possible. Onset and Duration? n/a Appointment Offered? No Dot Patel 04/29/2022 11:39 documented in this encounter Plan of Treatment Upcoming Encounters Date Type Department Care Team (Late st Contact Info) Description 06/29/2024 14:15 EDT Office Visit [facility] [address] [place], [place] [phone] Jean Munoz MD [address] [place] [phone] documented as of this encounter Visit Diagnoses Not on filedocumented in this encounter Care Teams Stave Grader Relationship Specialty Start Date End Date Jean Munoz MD [address] [place] [phone] PCP - General 12/31/08 Mnany Rizzo MD [address] [place] [phone] 04/20/10 Afia Valle MD [address] [place] [address], [facility] 2 [place] [phone] Care Team Radiation Oncology 07/02/21 Jesi Leong, [facility] [address] [place] [phone] Database Administration Associate 12/24/21 09/20/22 documented as of this encounter
--- OUTSIDE RECORDS SUMMARY | 2024-06-10 07:08 | XMS_ITS | Encounter Summary ---
Author Organization [facility] Address [address] [place] [address] Care Team Providers Care Spinning Frame Fixer Name Role Phone Jean Munoz MD Primary Care Provider Manny Rizzo MD Unavailable Afia Valle MD Unavailable Jesi Leong DIFFUSER OPERATOR Unavailable [phone] Encounter Details Date Type Department Care Team (Late st Contact Info) Description 03/18/2022 Community Health Team [facility] Family Medicine - [place] [address] [place] [address] Jesi Leong DIFFUSER OPERATOR [address] [place] [address] Social History Tobacco Use Types [...] slept in a chcf (including now)? No 04/24/2021 Interpersonal Safety Answer [...] this encounter Progress Notes * Jesi Leong, [facility] - 03/18/2022 0852 EDT [facility] Care Management Follow Up Foreign Food Specialty Cook followed up with Liset by phone for assistance navigating community resources. TOPIC OF CONVERSATION: ??? Reviewed assessment and plan from previous visit with patient. ??? Liset shares her [employer] Power is about to be disconnected; . As well as her [employer] (Internet). ??? Liset reports she's tried: Community Action - they said they can't help at this time of year. Voices - won't help because her ex-partner's name is on the accounts. VERAP - Landlord not cooperating. ??? This field underwriter agrees to explore letter of medical necessity. Liset states if she doesn't have power she won't be able to use her A/C, then she'll need nebulizer for her breathing. She's concerned about losing Internet and not being able to attend tele-med visits. ??? This field underwriter spoke w/ Gelacio Kruger/Onc Staffing Coordinator by phone who agrees to work with herprovider on a letter of Medical Necessity in Dr. Munoz absence. Letter received, faxed to [facility] and phoned [facility] asking them to note her account. Followed up with Liset by phone accordingly. ??? Audingo message sent to Liset this evening, encouraged her to call [facility], Chrissy Hdz, Emergency Aid Coordinator at [phone] for additional assistance with utilities. ??? Engaged patient in conversation related to positive behavior change, self- management, goal setting and action planning using motivational interviewing and active listening. Prioritized Patient Identified Goals: 1. Prior goal Goal from last contact: Liset will reach out to Susan, Community Partner at [facility] [phone] to request assistance applying for VERAP Achievement towards goals: Liset is working with Susan, however she notes the landlord is not cooperating with the VERAP process. 2. Prior goal Liset agrees to reach out to Jasmin Mulligan [facility] to discuss starting counseling. ?? Achievement towards goals: Liset reports she left for Jasmin previously; unable to assess additional progress today. 3. Prior goal schedule her next visit with PCP prior to Apr 25 to avoid running out of medication. Achievement towards goals: Liset has a visit via tele-med w/ Dr. Munoz on April 23 at 1:30pm. Plan: Next call March 25 at 10:30am with this field underwriter. FADUMO PINEDA 03/18/2022 8:52 documented in this encounter Plan of Treatment Upcoming Encounters Date Type Department Care Team (Late st Contact Info) Description 06/29/2024 14:15 EDT Office Visit [facility] [address] [place] [address] Jean Munoz MD [address] [place] [phone] documented as of this encounter Visit Diagnoses Not on filedocumented in this encounter Care Teams Spinning Frame Fixer Relationship Specialty Start Date End Date Jean Munoz MD [address] [place] [phone] PCP - General 12/31/08 Manny Rizzo MD [facility] [place] [phone] 04/20/10 Afia Valle MD [address] [place] [address] 2 [place] [phone] Care Team Radiation Oncology 07/02/21 Jesi Leong LICSW [address] [place] [phone] Foreign Food Specialty Cook 12/24/21 09/20/22 documented as of this encounter
--- OUTSIDE RECORDS SUMMARY | 2024-06-10 07:08 | XMS_ITS | Encounter Summary ---
Author Organization [facility] Address [address] [place] [address] Care Team Providers Care Civilian Jail Officer Name Role Phone Jean Munoz MD Primary Care Provider Manny Rizzo MD Unavailable Afia Valle MD Unavailable Jesi Leong AUTOMOBILE RENTAL CLERK Unavailable [phone] Encounter Details Date Type Department Care Team (Late st Contact Info) Description 03/10/2022 Community Health Team [facility] Family Medicine - [place] [address] [place] [address] Jesi Leong AUTOMOBILE RENTAL CLERK [address] [place] [address] Social History Tobacco Use Types [...] this encounter Progress Notes * Jesi Leong, [facility] - 03/10/2022 1238 EDT [facility] Care Management Follow Up Director Corporate Compliance followed up with Liset by phone for continued resource navigation. TOPIC OF CONVERSATION: ??? Reviewed assessment and plan from previous visit with patient. ??? Liset shares update. Liset waiting for call back from [facility] Community Partner who is assigned to help [facility] residents with VERAP application. She has left two voicemail's, the second just today. Liset states she continues to work w/ Voices as well to try to gain support for [facility]. Alfonzo from [employer] continues to help as well as she's waiting for call back from Jd Westbrook, attorney law clerk and lifelong friend. ??? Discussed difficulties with mail; Liset now having all her mail held at [facility]. ??? Liset leaning into support of her daughter in [place]. ??? Liset shares she did get a few of the housing applications in the mail, she is working on remaining. This will get her name on waiting lists. She did not indicate which of the applications she mailed. ??? Engaged patient in conversation related to positive behavior change, self- management, goal setting and action planning using motivational interviewing and active listening. Prioritized Patient Identified Goals: 1. Goal from last contact: Liset will reach out to Susan, Community Partner at [facility] [phone] to request assistance applying for VERAP. Achievement towards goals: Liset has left [facility] two VMs to date. [facility] date as well, goal to confirm she can assist Liset w/ VERAP application. (Update 03/11: Liset phoned this teletypewriter installer back, states she will reach Liset directly for assistance). 2. New Goal: Liset agrees to reach out to Jasmin Mulligan [facility] to discuss starting counseling. 3. Per Dr. Munoz, this teletypewriter installer left Liset VM on 03/11 prompting her to call office at [phone] to schedule her next visit with PCP prior to Apr 25 to avoid running out of medication. Plan: Next call March 25, 2022 at 10:30am with this teletypewriter installer. Time Spent: Telephone: 15 mins FADUMO PINEDA 03/10/2022 12:38 documented in this encounter Plan of Treatment Upcoming Encounters Date Type Department Care Team (Late st Contact Info) Description 06/29/2024 14:15 EDT Office Visit [facility] [address] [place] [address] Jean Munoz MD [address] [place] [phone] documented as of this encounter Visit Diagnoses Not on filedocumented in this encounter Care Teams Civilian Jail Officer Relationship Specialty Start Date End Date Jean Munoz MD [address] [place] [phone] PCP - General 12/31/08 Manny Rizzo MD [facility]5 [place] [phone] 04/20/10 Afia Valle MD [address] [place] [address] 2 [place] [address] Care Team Radiation Oncology 07/02/21 Jesi Leong LICSW [address] [place] [phone] Director Corporate Compliance 12/24/21 09/20/22 documented as of this encounter
--- OUTSIDE RECORDS SUMMARY | 2024-06-10 07:08 | XMS_ITS | Encounter Summary ---
Author Organization [facility] Address [address] [place] [address] Care Team Providers Care Hoop Rolls Operator Name Role Phone Jean Munoz MD Primary Care Provider Manny Rizzo MD Unavailable Afia aVlle MD Unavailable [phone] Jesi Leong Unavailable [phone] Reason for Visit * Reason Onset Date Comments Pharmacy 03/25/2022 Encounter Details Date Type Department Care Team (Late st Contact Info) Description 03/25/2022 Telephone [facility] [address] [place] [address] Jean Munoz MD [address] [place] [phone] Pharmacy Social History Tobacco Use Types [...] slept in a correction (including now)? No 04/24/2021 Interpersonal Safety Answer [...] Miscellaneous Notes * Telephone Encounter - Kirk Ferrer, RN - 03/26/2022 1421 EDT Spoke to Komal Balbuena pharmacist- she will dispense [place] and Ritalin on 03/27/22 in anticipation of closing pharmacy, she states, I am working 7-8 days in a row and I just need Wednesday off. KIRK FERRER RN 03/26/2022 14:27 * Telephone Encounter - Jean Munoz MD - 03/26/2022 1259 EDT Yes that is okay, thanks * Telephone Encounter - Dianne Rowan - 03/25/2022 1140 EDT Pharmacy calling ask if they can get a verbal to fill Rx early. Scheduled fill date is 7.16 Sat butPharmacy is short handed and may be closed on Sat - if they can find coverage Pharmacist will hold her to the 7/16 date, but just in case she is asking for a verbal to fill early. methylphenidate HCl (RITALIN;METHYLIN) 10 mg tablet methylphenidate HCl (RITALIN;METHYLIN) 20 mg tablet HYDROcodone-acetaminophen (NORCO) 7.5-325 mg per tablet documented in this encounter Plan of Treatment Upcoming Encounters Date Type Department Care Team (Late st Contact Info) Description 06/29/2024 14:15 EDT Office Visit [facility] [address] [place] [address] Jean Munoz MD [address] [place] [phone] documented as of this encounter Visit Diagnoses Not on filedocumented in this encounter Care Teams Hoop Rolls Operator Relationship Specialty Start Date End Date Jean Munoz MD [address] [place] [phone] PCP - General 12/31/08 Manny Rizzo MD [address] [place] [phone] 04/20/10 Afia Valle MD [address] [place] [address] 2 [place] [phone] Care Team Radiation Oncology 07/02/21 Jesi Leong, [facility] [address] [place] [phone] Manager Finance 12/24/21 09/20/22 documented as of this encounter
--- OUTSIDE RECORDS SUMMARY | 2024-06-10 07:08 | XMS_ITS | Encounter Summary ---
Author Organization [facility] Address [address] [place] [address] Care Team Providers Care Nissan Sales Consultant Name Role Phone Jean Munoz MD Primary Care Provider Manny Rizzo MD Unavailable Afia Valle MD Unavailable [phone] Jesi Leong Unavailable [phone] Reason for Visit * Reason Comments Other Encounter Details Date Type Department Care Team (Late st Contact Info) Description 04/25/2022 [facility] [address] [place] [address] Jean Munoz MD [address] [place] [address] Other Social History Tobacco Use [...] in a group home (including now)? No 04/24/2021 Interpersonal Safety [...] Description 06/29/2024 14:15 EDT Office Visit [facility] 3 [place] [address] Jean Munoz MD [address] [place] [phone] documented as of this encounter [...] colon documented in this encounter Care Teams Nissan Sales Consultant Relationship Specialty Start Date End Date Jean Munoz MD [address] [place] [phone] PCP - General 12/31/08 Manny Rizzo MD [address] [place] [phone] 04/20/10 Afia Valle MD [address] [place] [address] 2 [place] [phone] Care Team Radiation Oncology 07/02/21 Jesi Leong [facility] [address] [place] [phone] Concrete Buildings Assembler 12/24/21 09/20/22 documented as of this encounter
--- OUTSIDE RECORDS SUMMARY | 2024-06-10 07:08 | XMS_ITS | Encounter Summary ---
Author Organization [facility] Address [address] [place] [address] Care Team Providers Care Brake Repairer Railroad Name Role Phone Jean Munoz MD Primary Care Provider Manny Rizzo MD Unavailable Afia Mcmillan MD Unavailable Jesi Leong Unavailable Reason for Referral * Radiology Services (Routine/Next Available) - Authorization Not Required Specialty Diagnoses / Procedures Referred By [facility] Referred To Contact Diagnoses Malignant neoplasm of upper lobe, right bronchus or lung (HCC-CMS) Procedures CT CHEST W CONTRAST Afia Mcmillan MD [address] [facility], Level 2 [place] [address] [facility] Referral ID Status Reason Start Date Expiration Date Visits Requested Visits Authorized [id number] Authorization Not Required 05/12/2022 1 1 Reason for Visit * Reason Comments Lung Cancer Follow up Encounter Details Date Type Department Care Team (Late st Contact Info) Description 05/12/2022 15:00 EDT Office Visit [email or web address] Radiation Oncology - [address] [id number] Afia Mcmillan MD 111 [facility], [facility], [address] [place] [address] Malignant neoplasm of upper lobe, right bronchus or lung (HCC) (HCC-CMS) (Primary Dx) Social History Tobacco [...] Sign Reading Time Taken Comments Blood Pressure 112/69 05/12/2022 1501 EDT Pulse 92 05/12/2022 1501 EDT Temperature 36.7 ??C (98.1 ??F) 05/12/2022 1501 EDT Respiratory Rate - - Oxygen Saturation 97% 05/12/2022 1501 EDT Inhaled Oxygen Concentration - - Weight 73.1 kg (161 lb 3.2 oz) 05/12/2022 1501 E DT Height 161.5 cm (5' 3.58) 05/12/2022 1501 EDT Body Mass Index 28.03 05/12/2022 1501 EDT documented in this encounter [...] as of this encounter Progress Notes * Afia Mcmillan MD - 05/12/2022 1500 EDT Patient Name: Liset Viera (1960) Patient Provider: Afia Mcmillan MD Date of service: 05/12/2022 Radiation Oncology Follow-Up Note Identification/Chief Compliant Liset Viera is a 61 y.o. female with COPD and lung cancer, [id number] at least stage IIB NSCLC ofthe right upper lobe with an intrapulmonary node s/p EBRT to 60 Gy in 15 fractions completed 08/20/21. Ms. Viera presents today for routine follow-up. Interval History Ms. Viera Is overall doing well. she reports no changes in breathing (denies worsening cough or shortness of breath). Denies rib or chest wall pain. Denies fevers/sputum CT CHEST WO CONTRAST 05/04/2022 Lungs and airways: Extensive nodular interstitial thickening with surrounding groundglass opacity throughout the right upper lobe with associated architectural distortion, as well as thickening and mucous plugging of underlying airways, likely representing progressive radiation pneumonitis. Stable to minimally increased size of known cystic lesion with surrounding groundglass opacity in the periphery of the left upper lobe (image 225 series 202 was performed., Small, groundglass nodularopacities in the right lower lobe, likely inflammatory. Scattered regions of airway wall thickeningand mucous plugging bilaterally. Emphysema. Pleura: New, very mild thickening of the peripheral right pleura as well as slight nodularity of the interlobar fissures in the region of the right upper lobe abnormalities. Impression 1. Substantial worsening of right upper lobe opacities, likely representing progression of radiation pneumonitis. Less likely, this could represent recurrent malignancy in the form of lymphangitic carcinomatosis. Abnormalities of the pleura in this region and very slight mottling of adjacent right second through fourth lateral ribs are likely also related to radiation therapy. 2. Stable small cystic lesion in the peripheral left upper lobe with surrounding groundglass opacity, probably representing a focus of emphysema with surrounding inflammatory changes. 3. Stable borderline bilateral lower paratracheal lymph nodes. 4. Stable incidental findings. Pain scale 0 / 10 Performance Status: 1: Restricted in physically strenuous activity but ambulatory and able to carryout work of a light or sedentary nature, e.g., light house work, office work General: Well-appearing female in no apparent distress. HEENT: Anicteric sclera. Pupils equally round and reactive to light and accommodation. Extra-ocularmovements intact. Respiratory: End expiratory wheeze in right lung, left is clear Abdomen: Non-distended. Extremities: No lower extremity edema. MSK: Moves all extremities without difficulty. Neurologic: Cranial nerves II through XII grossly intact. 5/5 symmetric strength of the bilateral upper and lower extremities. No dysarthria or dysmetria. Dermatologic: No skin rashes, or jaundice. Assessment/Plan Ms. Viera is now 8 months from lung hypofractioanted EBRT with evolving changes in the RUL whichI think are most consistent with post-RT changes. I do not see any clear evidence of recurrent cancer. The THANH GGO is slowly growing. I will obtain short interval imaging, and also refer her back to pulmonary clinic given wheeze on exam and the aforementioned changes in the RUL. Infection seems less likely given distribution, but it would be helpful to have their input. I spent a total of 20 minutes on the date of this encounter meeting with the patient and reviewing documentation/coordinating care as described in the above note. No procedures were performed at the time of the visit. Afia Mcmillan MD Pants Cutter of Radiation Oncology [facility] documented in this encounter Miscellaneous Notes * Addendum Note - Afia Mcmillan MD - 05/12/2022 1500 EDTAddended by: AFIA MCMILLAN on: 05/22/2022 14:34 Modules accepted: Orders * Addendum Note - Afia Mcmillan MD - 05/12/2022 1500 EDTAddended by: AFIA MCMILLAN on: 05/25/2022 08:45 Modules accepted: Orders documented in this encounter Plan of Treatment Upcoming Encounters Date Type Department Care Team (Late st Contact Info) Description 06/29/2024 14:15 EDT Office Visit [facility] [address] [place] [address] Jean Munoz MD [address] [place] [address] documented as of this encounter Results * CT CHEST W [...] 4. Stable incidental findings, as above. Afia Mcmillan MD IMG CT ORDERAB LES documented in [...] malignant neoplasms, colon documented in this encounter Additional Health Concerns Infection Onset Date Last Indicated Resolved Time R/O COVID-19 05/15/2022 05/15/2022 05/20/2022 22:1 6 EDT documented as of this encounter Care Teams Brake Repairer Railroad Relationship Specialty Start Date End Date Jean Munoz MD [address] [place] [phone] PCP - General 12/31/08 Manny Rizzo MD [address] [place] [phone] 04/20/10 Afia Mcmillan MD [address] [place] [address] 2 [place] [phone] Care Team Radiation Oncology 07/02/21 Jesi Leong, [facility] [address] [place] [address] [employer] 12/24/21 09/20/22 documented as of this encounter
--- OUTSIDE RECORDS SUMMARY | 2024-06-10 07:08 | XMS_ITS | Encounter Summary ---
Author Organization [facility] Address [address] [place] [address] Care Team Providers Care Branch Associate Name Role Phone Jean Munoz MD Primary Care Provider Manny Rizzo MD Unavailable Afia Valle MD Unavailable Jesi Leong Unavailable [phone] Reason for Visit * Reason Comments Other Encounter Details Date Type Department Care Team (Late st Contact Info) Description 02/25/2022 [facility] [address] [place] [address] Jean Munoz MD [address] [place] [address] Other Social History Tobacco Use [...] [facility] [address] [place] [address] Jean Munoz MD [address] [place] [address] documented as of this encounter [...] colon documented in this encounter Care Teams Branch Associate Relationship Specialty Start Date End Date Jean Munoz MD [address] [place] [phone] PCP - General 12/31/08 Manny Rizzo MD [address] [place] [address] 04/20/10 Afia Valle MD [address] [place] [address] 2 [place] [phone] Care Team Radiation Oncology 07/02/21 Jesi Leong [facility] [address] [place] [phone] Special Police 12/24/21 09/20/22 documented as of this encounter
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
--- OUTSIDE RECORDS SUMMARY | 2024-06-10 07:08 | XMS_ITS | Encounter Summary ---
Author Organization [facility] Address [address] [place] [address] Care Team Providers Care Control Room Tender Name Role Phone Jean Munoz MD Primary Care Provider Manny Rizzo MD Unavailable Afia Valle MD Unavailable Jesi Leong Unavailable Encounter Details Date Type Department Care Team (Late st Contact Info) Description 05/13/2022 Orders Only [facility] Radiology - [place] [address] [place] [phone] Marija Dominguez MD [address] [place] [address] Social History Tobacco Use Types Packs/Day Years [...] Office Visit [facility] 3 [place] [address] Jean Munoz MD [address] [place] [phone] documented as of this encounter Visit Diagnoses Not on filedocumented in this encounter Care Teams Control Room Tender Relationship Specialty Start Date End Date Jean Munoz MD [address] [place] [phone] PCP - General 12/31/08 Manny Rizzo MD [address] [place] [phone] 04/20/10 Afia Valle MD [address] [place] [address] 2 [place] [phone] Care Team Radiation Oncology 07/02/21 Jesi Leong, [facility] [address] [place] [phone] Ski Patrol Director 12/24/21 09/20/22 documented as of this encounter
--- OUTSIDE RECORDS SUMMARY | 2024-06-10 07:08 | XMS_ITS | Encounter Summary ---
Author Organization [facility] Address [address] [place] [address] Care Team Providers Care Needle Loom Operator Helper Name Role Phone Jean Munoz MD Primary Care Provider Manny Rizzo MD Unavailable Afia Valle MD Unavailable [phone] Jesi Leong BI TRI OPERATOR Unavailable Encounter Details Date Type Department Care Team (Late st Contact Info) Description 02/24/2022 Community Health Team [facility] - [place] [address] [place] [address] Jesi Leong BI TRI OPERATOR [address] [place] [address] Social History Tobacco Use Types [...] in a care home (including now)? No 04/24/2021 Interpersonal Safety [...] Progress Notes * Jesi Leong LICSW - 02/24/2022 5601 EDT Social Work Cargo Agent Follow Up Encounter Date: 02/24/2022 Social Work Cargo Agent follow up with Liset at her home for assistance with housing paperwork. TOPIC OF CONVERSATION: ??? Reviewed assessment and plan from previous visit with patient. ??? Plant Custodian (JOSH) assisted Liset with completing the [employer] application today. She started to complete [employer] application. She notes these are the only two applicationsshe could locate. JOSH asked Admin to re-send [employer] and [employer] robina via mail. Liset is placing her brother,Julio, on her applications, requesting two bedroom units. JOSH agrees to provide a letter of advocacy for Liset related to her Emotional Support Animals (3 cats). ??? Discussed what she can expect related to this process. ??? Liset also provided SW update sharing her landlord has given her Notice of Termination (non payment of Februaryt) and Termination of Tenancy - No Cause stating her tenancy is terminated as of 05/25/2022. JOSH discusses Medical Legal Partnership (MLP) and Liset agrees to accept referral. Liset feels the termination is retaliatory. ??? Liset shares she was granted permanent order of protection. Liset is working with [facility]. ??? Engaged patient in conversation related to positive behavior change, self- management, goal setting and action planning using motivational interviewing and active listening. Patient Identified SMART Goal:..Liset will complete [employer] application within the next two weeks. PLAN: JOSH will call Liset to check in on March 10 at 12:30pm. .. Family Medicine [place], [address] [facility] Total Time: Travel: 15 mins, In person: 45 mins, Chartin mins Referral: Housing Authorities Follow up: March 10, 2022 at 12:30pm by phone w/ JOSH. Status: Active documented in this encounter Plan of Treatment Upcoming Encounters Date Type Department Care Team (Late st Contact Info) Description 06/29/2024 14:15 EDT Office Visit [facility] [address] [place], [place] [phone] Jean Munoz MD [address] [place] [phone] documented as of this encounter Visit Diagnoses Not on filedocumented in this encounter Care Teams Needle Loom Operator Helper Relationship Specialty Start Date End Date Jean Munoz MD [address] [place] [phone] PCP - General 12/31/08 [place] [address] [place] [phone] 04/20/10 Afia Valle MD [address] [place] [address] [address] [place] [phone] Care Team Radiation Oncology 07/02/21 Jesi Leong [facility] [address] [place] [phone] Cargo Agent 12/24/21 09/20/22 documented as of this encounter
--- OUTSIDE RECORDS SUMMARY | 2024-06-10 07:08 | XMS_ITS | Encounter Summary ---
Author Organization [facility] Address [address] [place] [address] Care Team Providers Care Cured Meats Supervisor Name Role Phone Jean Munoz MD [...] CHEST WO CONTRAST Afia Valle MD [address] [facility], [address] [place] [address] [facility] Referral ID Status Reason Start Date Expiration Date Visits Requested Visits Authorized [id number] Authorization Not Required 12/31/2021 1 1 Reason for Visit * Radiology Services (Routine/Next Available) - Authorization Not Required Specialty Diagnoses / Procedures Referred By Contceclile t Referred To Contact Diagnoses Malignant neoplasm of upper lobe, right bronchus or lung ([facility]) Procedures CT CHEST WO CONTRAST Afia Valle MD [address] [facility], [facility], [address] [place] [address] [facility] Referral ID Status Reason Start Date Expiration Date Visits Requested Visits Authorized [id number] Authorization Not Required 12/31/2021 1 1 Encounter Details Date Type Department Care Team (Latest Contact Info) Description 05/04/2022 13:23 EDT - 05/04/2022 23:59 EDT Hospital Encounter Medical Center Radiology CT - [facility] [address] [place] [address] Malignant neoplasm of upper lobe, right bronchus or lung (HCC) ([facility]) Discharge Disposition: Home or [...] or slept in a fdc (including now)? No 04/24/2021 Interpersonal Safety Answer [...] stripsIndications:Impa ired glucose tolerance 1 Strip by [facility] (non-drug; combo route) route 2 times daily. [...] 01/27/2023 HYDROcodone-acetaminop hen (NORCO) 7.5-325 mg per tabletIndications:Fruit Culler majo pain syndrome,Chronic use of opiate for therapeutic purpose,Pain medication agreement Take 1 Tablet by mouth every 6 hours as needed for up to 28 days for Pain. For chronic pain. Daily Max: 4 Tablets 112 Tablet 06/20/2022 07/06/2022 HYDROcodone-acetaminop hen (NORCO) 7.5-325 mg per tabletIndications:Fruit Culler majo 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 For chronic pain. 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 DAILY MAX: 2 CAPSULES 180 capsule 1 09/26/2021 05/11/2022 promethazine (PHENERGAN) 25 mg tabletIndications:Naus ea TAKE ONE TABLET BY MOUTH EVERY SIX HOURS NEEDED for nausea 30 Tablet 1 03/11/2022 03/29/2023 roflumilast (DALIRESP) 500 mcg tabletIndications:Fruit Culler majo obstructive pulmonary disease, unspecified COPD type ([facility]) Take 1 Tablet by mouth daily. 90 [...] FOR MIGRAINE 9 Tablet 2 05/11/2022 08/10/2022 SUMAtriptan (IMITREX) 100 mg tabletIndications:Migr lu without status migrainosus, not intractable, unspecified migraine type tAKE 1 TABLET BY MOUTH ONCE NEEDED FOR UP TO 1 DOSE FOR MIGRAINE 9 Tablet 2 02/04/2022 05/11/2022 tamsulosin (FLOMAX) 0.4 mg capsuleIndications:Hes itancy Take 1 Cap by mouth daily. 90 Cap 3 08/30/2019 01/27/2023 zolpidem (AMBIEN) 5 mg tabletIndications:Inso mnia, unspecified type Take 1 Tablet by mouth at bedtime for 28 days. For insomnia. Daily Max: 5 mg 28 Tablet 04/25/2022 05/25/2022 documented as of this encounter Discharge Disposition Disposition Code Departure Means Destination Home or Self Care documented in this encounter Plan of Treatment Upcoming Encounters Date Type Department Care Team (Late st Contact Info) Description 06/29/2024 14:15 EDT Office Visit [facility] [address] [place] [address] Jean Munoz MD [address] [place] [address] documented as of this encounter Procedures Procedure Name Priority Date/Time Associated Diagnosis Comments CT CHEST WO CONTRAST Routine 05/04/2022 13:39 EDT Malignant neoplasm of upper lobe, right bronchus or lung (HCC) (HCC-CMS) documented in this encounter Results * CT CHEST WO CONTRAST (05/04/2022 13:39 EDT) Anatomical Region Laterality Modality Chest Computed Tomogra phy 05/04/2022 15:1 5 EDT Impressions 05/04/2022 15:15 EDT 1. ??Substantial worsening of right upper lobe opacities, likely representing progression of radiation pneumonitis. Less likely, this could represent recurrent malignancy in the form of lymphangitic carcinomatosis. Abnormalities of the pleura in this region and very slight mottling of adjacent right second through fourth lateral ribs are likely also related to radiation therapy. 2. ??Stable small cystic lesion in the peripheral left upper lobe with surrounding groundglass opacity, probably representing a focus of emphysema with surrounding inflammatory changes. 3. ??Stable borderline bilateral lower paratracheal lymph nodes. 4. ??Stable incidental findings. Narrative 05/04/2022 15:[address] CHEST WO CONTRAST ??05/04/2022 1:30 PM Clinical History/Comments: Non-small cell lung cancer (NSCLC), non-metastatic, assess treatment response. Status post external beam radiation therapy completed 08/20/2021. Technique: CT scan of the chest was performed without contrast material. Thin section reconstructions were performed. Comparison: 12/26/2021 CT scan Findings: Lower neck: Normal. Mediastinum and hazel (non-vascular): Stable bilateral top normal size lower paratracheal lymph nodes. No enlarging mediastinal or hilar nodes. ??Unchanged appearance of the esophagus, noting postsurgical changes of gastric fundoplication with associated surgical clips at the level of the hiatus and a small hiatal hernia. Cardiovascular: ??Trace atherosclerotic calcium in the thoracic aorta and left subclavian artery. Trace calcium in the left anterior descending coronary artery. Lungs and airways: ??Extensive nodular interstitial thickening with surrounding groundglass opacity throughout the right upper lobe with associated architectural distortion, as well as thickening and mucous plugging of underlying airways, likely representing progressive radiation pneumonitis. Stable to minimally increased size of known cystic lesion with surrounding groundglass opacity in the periphery of the left upper lobe (image 225 series 202 was performed., Small, groundglass nodular opacities in the right lower lobe, likely inflammatory. Scattered regions of airway wall thickening and mucous plugging bilaterally. Emphysema. Pleura: New, very mild thickening of the peripheral right pleura as well as slight nodularity of the interlobar fissures in the region of the right upper lobe abnormalities. Upper abdomen (limited to upper abdomen, not optimized for abdominal imaging): Faint hypodensity in the left renal cortex which was photopenic on PET/CT from 06/16/2021, likely a cyst. Bones and chest wall soft tissues: ??Unremarkable soft tissues. ??Slightly mottled appearance of the right second through fourth lateral ribs partially imaged cervical spine fixation hardware. Procedure Note Jade Murrell MD - 05/04/2022 CT CHEST WO CONTRAST 05/04/2022 1:30 PM Clinical History/Comments: Non-small cell lung cancer (NSCLC), non-metastatic, assess treatmentresponse. Status post external beam radiation therapy [id number]/8/2021. Technique: CT scan of the chest was performed without contrast material. Thin sectionreconstructions were performed. Comparison: 12/26/2021 CT scan Findings: Lower neck: Normal. Mediastinum and hazel (non-vascular): Stable bilateral top normal sizelower paratracheal lymph nodes. No enlarging mediastinal or hilar nodes.Unchanged appearance of the esophagus, noting postsurgical changes ofgastric fundoplication with associated surgical clips at the level of thehiatus and a small hiatal hernia. Cardiovascular: Trace atherosclerotic calcium in the thoracic aorta andleft subclavian artery. Trace calcium in the left anterior descendingcoronary artery. Lungs and airways: Extensive nodular interstitial thickening withsurrounding groundglass opacity throughout the right upper lobe withassociated architectural distortion, as well as thickening and mucousplugging of underlying airways, likely representing progressive radiationpneumonitis. Stable to minimally increased size of known cystic lesion with surroundinggroundglass opacity in the periphery of the left upper lobe (image 225series 202 was performed., Small, groundglass nodular opacities in theright lower lobe, likely inflammatory. Scattered regions of airway wallthickening and mucous plugging bilaterally. Emphysema. Pleura: New, very mild thickening of the peripheral right pleura as wellas slight nodularity of the interlobar fissures in the region of the rightupper lobe abnormalities. Upper abdomen (limited to upper abdomen, not optimized for abdominalimaging): Faint hypodensity in the left renal cortex which was photopenicon PET/CT from 06/16/2021, likely a cyst. Bones and chest wall soft tissues: Unremarkable soft tissues. Slightlymottled appearance of the right second through fourth lateral ribspartially imaged cervical spine fixation hardware. IMPRESSION 1. Substantial worsening of right upper lobe opacities, likelyrepresenting progression of radiation pneumonitis. Less likely, this couldrepresent recurrent malignancy in the form of lymphangitic carcinomatosis.Abnormalities of the pleura in this region and very slight mottling ofadjacent right second through fourth lateral ribs are likely also relatedto radiation therapy. 2. Stable small cystic lesion in the peripheral left upper lobe withsurrounding groundglass opacity, probably representing a focus ofemphysema with surrounding inflammatory changes. 3. Stable borderline bilateral lower paratracheal lymph nodes. 4. Stable incidental findings. Afia Valle MD IMG CT ORDERAB LES [...] colon documented in this encounter Care Teams Cured Meats Supervisor Relationship Specialty Start Date End Date Jean Munoz MD [address] [place] [phone] PCP - General 12/31/08 Manny Rizzo MD [address] [place] [phone] 04/20/10 Afia Valle MD [address] [place] [address] [facility], [address] [place] [phone] MD Care Team Radiation Oncology 07/02/21 Jesi Leong, [facility] [address] [place] [phone] Residential Support Specialist 12/24/21 09/20/22 documented as of this encounter
--- OUTSIDE RECORDS SUMMARY | 2024-06-10 07:08 | XMS_ITS | Encounter Summary ---
Author Organization [facility] Address [address] [place] [address] Care Team Providers Care Log Roper Name Role Phone Jean Munoz MD Primary Care Provider Manny Rizzo MD Unavailable Afia Valle MD Unavailable [phone] Jesi Leong Unavailable Reason for Visit * Reason Comments Other Encounter Details Date Type Department Care Team (Late st Contact Info) Description 03/28/2022 [facility] [address] [place] [address] Jean Munoz MD [address] [place] [phone] Other Social History Tobacco Use [...] Info) Description 06/29/2024 14:15 EDT Office Visit [facility] named [facility] [address] [place] [address] Jean Munoz MD [address] [place] [phone] documented as of this encounter [...] days. For insomnia. Daily Max: 5 mg Reorder 02/28/2022 03/30/2022 zolpidem (AMBIEN) 5 mg tabletIndications:Insomn ia, unspecified type Take 1 Tablet by mouth at bedtime as needed for up to 28 days for Sleep. For insomnia. May fill on Wednesday12/06/2021. Daily Max: 5 mg Reorder 12/08/2021 03/30/2022 documented as of this encounter Care Teams Log Roper Relationship Specialty Start Date End Date Jean Munoz MD [address] [place] [phone] PCP - General 12/31/08 Manny Rizzo MD [address] [place] [phone] 04/20/10 Afia Valle MD [address] [facility], [facility], [address] [place] [phone] MD Care Team Radiation Oncology 07/02/21 Jesi Leong, [facility] [address] [place] [phone] Steam Pan Sponger 12/24/21 09/20/22 documented as of this encounter
--- OUTSIDE RECORDS SUMMARY | 2024-06-10 07:09 | XMS_ITS | Encounter Summary ---
Author Organization [facility] Address [address] [place] [address] Care Team Providers Care Science Writer Name Role Phone Jean Munoz MD Primary Care Provider Manny Rizzo MD Unavailable Afia Valle MD Unavailable [phone] Reason for Referral * Radiology Services (Routine/Next Available) - Authorization Not Required Specialty Diagnoses / Procedures [facility] Referred To Contact Diagnoses Malignant neoplasm of upper lobe, right bronchus or lung (HCC-CMS) Procedures CT CHEST WO CONTRAST Afia Valle MD [address] [facility] Level [address] [place] [address] [facility] Referral ID Status Reason Start Date Expiration Date Visits Requested Visits Authorized [id number] Authorization Not Required 08/19/2021 1 1 Reason for Visit * Reason Onset Date Comments Other 08/19/2021 Radiation Therap On Treatment Visit Encounter Details Date Type Department Care Team (Late st Contact Info) Description 08/19/2021 Radiation Therapy Visit [facility] Rad[facility] [address] [place] [address] Afia Valle MD 111 [facility], [facility], Level [address] [place] [address] Malignant neoplasm of upper lobe, [...] 04/24/2021 PHQ-2 Answer Date Recorded PHQ-2 SUBTOTAL 2 04/24/2021 Hunger Vital Sign Answer Date Recorded Within [...] Rarely 04/24/2021 How often does anyone, inclu ding family, [...] swallowing pain. 100 mL 2 08/19/2021 01/19/2023 documented in this encounter Progress Notes * Afia Valle MD - 08/19/2021 1118 EST On Treatment Visit Note Date/Time: 08/19/21 11:19 Diagnosis: The encounter diagnosis was Malignant neoplasm of upper lobe, right bronchus or lung (HCC). Site: RU Daily RT Dose: 400 cGy Current RT Dose: 5600 cGy Planned RT Dose: 6000 cGy Concurrent chemo: None Physician Assessment Patient tolerance: Now endorsing odynphagia. Also feeling very fatigued. Pain scale: 0/10 Physical Exam ECOG Performance status: 0: Fully active, able to carry on all pre-disease performance without restriction Gen: well-appearing, no acute distress Skin: no reaction. Neuro: AO, grossly non-focal Data Review: I have reviewed the patient's pertinent vitals signs and labs as resulted in the EMR. Assessment: Stable course with expected RT side effects. Grade 1 fatigue Grade 1 esophagitis Plan: - Continue RT. - Viscous lido for esophagitis - F/u [address] A review of treatment set-up, dosimetry, and IGRT images has been performed. documented in this encounter Plan of Treatment Upcoming Encounters Date Type Department Care Team (Late st Contact Info) Description 06/29/2024 14:15 EDT Office Visit [facility] [address] [place] [address] Jean Munoz MD [address] [place] [address] documented as of this encounter Results * CT CHEST WO CONTRAST (12/26/2021 9:41 EDT) Anatomical Region Laterality Modality Chest Computed Tomogra phy 12/26/2021 10:4 0 EDT Impressions 12/26/2021 10:40 EDT 1. Decreased size of small right apical lung carcinoma, with very mild surrounding radiation change. 2. Increased size of previously described groundglass nodule in the periphery of the left upper lobe, now measuring 11 x 13 mm with underlying cystic change representing either dilated airways or emphysema, previously 7 mm when remeasured in a similar fashion. Surveillance is recommended and, considering the rate of change, follow-up CT should be performed in 3-6 months. 3. Stable incidental findings, as above. Narrative 12/26/2021 10:[address] CHEST WO CONTRAST ??12/26/2021 9:30 AM Clinical History/Comments: Rul lung cancer s/p XRT; Staging, lung cancer, non-small cell Technique: A single breath-hold helical CT acquisition was performed through the chest on a multidetector-row scanner with a reconstructed slice thickness of 3 mm and retrospectively reconstructed 0.9 mm thick sections with 0.45 mm overlapping intervals. ??The scans were obtained from the lung apices through the bases without IV contrast. ??Scans were reviewed on a dedicated PACS workstation for analysis. Exam description: CT of the chest without IV contrast Comparison: Several prior CTs, most recent dated 05/06/2021 Findings: Lower neck: Normal. Chest wall: Unremarkable. Mediastinum (non-vascular): Stable appearance of the gastroesophageal junction, noting a small hiatal hernia and postsurgical changes of gastric fundoplication. Unremarkable thoracic esophagus. No enlarged or enlarging mediastinal or hilar lymph nodes. Stable 13 mm lower left paratracheal node (image 210 series 203). Heart and mediastinal vasculature: Trace atherosclerotic calcium in the aortic arch and right subclavian artery. Trace calcium in the left anterior descending coronary artery. Lungs, airways, pleura: 12 x 7 mm right apical nodule (image 123 series 203), decreased from 14 x 8 mm, with very mild surrounding groundglass opacity compatible with radiation change. Increased size of a groundglass nodule in the periphery of the left upper lobe, now measuring 11 x 13 mm with underlying cystic changes that could represent dilated airways or emphysema (image 203 series 197), previously approximately 7 mm when remeasured in a similar fashion. Moderate upper lung predominant centrilobular emphysema. Patent central airways. Normal pleura. Upper abdomen: Stable 2 to 3 mm, slightly hypodense exophytic right upper pole renal lesion (image 175 series 201), present since at least 08/17/2019, likely a cyst. Bones: Partially imaged cervical spine hardware. No suspicious osseous lesions. Procedure Note Jade Murrell MD - 12/26/2021 CT CHEST WO CONTRAST 12/26/2021 9:30 AM Clinical History/Comments: Rul lung cancer s/p XRT; Staging, lung cancer, non-small cell Technique: A single breath-hold helical CT acquisition was performed through thechest on a multidetector-row scanner with a reconstructed slice thicknessof 3 mm and retrospectively reconstructed 0.9 mm thick sections with 0.45mm overlapping intervals. The scans were obtained from the lung apicesthrough the bases without IV contrast. Scans were reviewed on a dedicatedMisoca workstation for analysis. Exam description: CT of the chest without IV contrast Comparison: Several prior CTs, most recent dated 05/06/2021 Findings: Lower neck: Normal. Chest wall: Unremarkable. Mediastinum (non-vascular): Stable appearance of the gastroesophagealjunction, noting a small hiatal hernia and postsurgical changes of gastricfundoplication. Unremarkable thoracic esophagus. No enlarged or enlargingmediastinal or hilar lymph nodes. Stable 13 mm lower left paratrachealnode (image 210 series 203). Heart and mediastinal vasculature: Trace atherosclerotic calcium in theaortic arch and right subclavian artery. Trace calcium in the leftanterior descending coronary artery. Lungs, airways, pleura: 12 x 7 mm right apical nodule (image 123 [id number]), decreased from 14 x 8 mm, with very mild surrounding groundglassopacity compatible with radiation change. Increased size of a groundglass nodule in the periphery of the left upperlobe, now measuring 11 x 13 mm with underlying cystic changes that couldrepresent dilated airways or emphysema (image 203 series 197), previouslyapproximately 7 mm when remeasured in a similar fashion. Moderate upper lung predominant centrilobular emphysema. Patent centralairways. Normal pleura. Upper abdomen: Stable 2 to 3 mm, slightly hypodense exophytic right upperpole renal lesion (image 175 series 201), present since at least08/17/2019, likely a cyst. Bones: Partially imaged cervical spine hardware. No suspicious osseouslesions. IMPRESSION 1. Decreased size of small right apical lung carcinoma, with very mildsurrounding radiation change. 2. Increased size of previously described groundglass nodule in theperiphery of the left upper lobe, now measuring 11 x 13 mm with underlyingcystic change representing either dilated airways or emphysema, previously7 mm when remeasured in a similar fashion. Surveillance is recommendedand, considering the rate of change, follow- up CT should be performed in3-6 months. 3. Stable incidental findings, as above. Afia Valle [...] colon documented in this encounter Care Teams Science Writer Relationship Specialty Start Date End Date Jean Munoz MD [address] [place] [address] PCP - General 12/31/08 Manny Rizzo MD [address] [place] [phone] 04/20/10 fAia Valle MD 111 [facility], [facility] 2 [place] [phone] MD Care Team Radiation Oncology 07/02/21 documented as of this encounter
--- OUTSIDE RECORDS SUMMARY | 2024-06-10 07:09 | XMS_ITS | Encounter Summary ---
Author Organization [facility] Address [address] [place] [address] Care Team Providers Care Lock And Dam Operator Name Role Phone Jean Munoz MD Primary Care Provider Manny Rizzo MD Unavailable Afia Valle MD Unavailable [phone] Encounter Details Date Type Department Care Team (Latest Contact Info) Description 08/20/2021 14:49 EST - 08/20/2021 23:59 EST Hospital Encounter [facility] Radiation Oncology - Main [place] [address] [place], [place] [id number] [facility] Resource, Platform Discharge Disposition: Home or Self Care Social [...] 09/24/2010 blood glucose (BLOOD GLUCOSE TEST) test stripsIndications:Arpita richter glucose tolerance 1 Strip by [facility] (non-drug; combo route) route 2 times daily. 100 Each 1 07/09/2021 11/06/2022 busPIRone (BUSPAR) 15 mg tabletIndications:Anxi ety Take 1 Tab by mouth 3 times daily. 270 Tab 3 10/16/2020 02/05/2022 Ciclesonide 50 mcg spray,non-aerosolIndic ations:Seasonal allergic rhinitis, unspecified trigger 1 spray each nostril daily 37.5 g 5 03/03/2018 08/04/2023 cycloSPORINE (RESTASIS) 0.05 % ophthalmic emulsion Place 1 drop into both eyes 2 times daily. 1 vial 11/11/2018 10/06/2023 doxycycline (VIBRA-TABS) 100 mg tabletIndications:Elaine cea TAKE 1 TABLET BY MOUTH EVERY DAY for rosacea 90 Tab 3 04/06/2021 02/05/2022 DULoxetine (CYMBALTA) 60 mg capsuleIndications:Anx iety Take 2 Caps by mouth daily. For depression, anxiety 180 Each 3 01/30/2021 02/05/2022 fexofenadine (JUDITH) 180 mg tabletIndications:Nakul rgic rhinitis, unspecified seasonality, unspecified trigger TAKE 1 TABLET BY MOUTH EVERY DAY for allergies 90 Tab 3 09/10/2020 08/26/2021 fluticasone propion-salmeteroL (ADVAIR HFA) 230-21 mcg/actuation inhalerIndications:Jarquin lobular emphysema (HCC-CMS) INHALE TWO PUFFS BY MOUTH TWICE DAILY as directed 3 Inhaler 3 11/12/2020 02/05/2022 HYDROcodone-acetaminop hen (NORCO) 7.5-325 mg per tabletIndications:Linoleum Layer Apprentice majo 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 Chronic pain Daily Max: 4 Tablets 112 Tablet 07/21/2021 08/26/2021 HYDROcodone-acetaminop hen (NORCO) 7.5-325 mg per tabletIndications:Linoleum Layer Apprentice majo pain syndrome,Chronic use of opiate for therapeutic purpose,Pain medication agreement Take 1 Tablet by mouth every 6 hours as needed for up to 8 days for Pain. For chronic pain Daily Max: 4 Tablets 20 Tablet 07/13/2021 08/26/2021 HYDROcodone-acetaminop hen (NORCO) 7.5-325 mg per tabletIndications:Linoleum Layer Apprentice majo pain syndrome,Chronic use of opiate for therapeutic purpose,Pain medication agreement Take 1 Tablet by mouth every 6 hours as needed for up to 28 days for Pain. Daily Max: 4 Tablets 112 Tablet 08/18/2021 08/26/2021 hydroxypropyl methylcellulose (ISOPTO TEARS) 0.5 % ophthalmic solution Place 1 Drop into both eyes 5 times daily. 12/10/2010 10/06/2023 ipratropium-albuterol (DUONEB) 0.5 mg-3 mg(2.5 mg base)/3 mL nebulizer solutionIndications:Pa nlobular emphysema ([facility]-CMS) Take 3 mL by nebulization every 4 hours as needed for Wheezing. 3 mL 3 08/30/2019 11/23/2022 lancetsIndications:Imp aired glucose tolerance Brand:one touch Adocia, tests 2 times daily 100 Each 2 07/09/2021 08/25/2021 levalbuterol (XOPENEX HFA) 45 mcg/actuation inhalerIndications:Jarquin lobular emphysema (HCC-CMS) INHALE TWO PUFFS BY MOUTH EVERY FOUR HOURS NEEDED for wheezing as directed. for shortness of breath 45 g 3 05/29/2021 06/30/2022 lidocaine (XYLOCAINE) 2 % solution 5 ML, mixed with 5 ml mylanta or maalox, swish and swallow for swallowing pain. 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 For narcolepsy Daily Max: 40 mg 56 Tablet 06/23/2021 08/26/2021 montelukast (SINGULAIR) 10 mg tabletIndications:Nakul rgic rhinitis, unspecified seasonality, unspecified trigger Take 1 Tab by mouth daily. For allergies 90 Tab 3 11/07/2020 09/23/2023 montelukast (SINGULAIR) 10 mg tabletIndications:Nakul rgic rhinitis, unspecified seasonality, unspecified trigger TAKE 1 TABLET BY MOUTH EVERY DAY for allergies 90 Tab 3 11/06/2020 11/24/2021 omeprazole (PRILOSEC) 40 mg capsuleIndications:Gas troesophageal reflux disease, esophagitis presence not specified Take 1 Cap by mouth daily. 90 Cap 3 08/30/2019 10/06/2023 ondansetron (ZOFRAN) 4 mg tabletIndications:Naus ea TAKE ONE TABLET BY MOUTH DAILY NEEDED FOR NAUSEA 30 Tab 3 10/25/2020 10/09/2021 ONETOUCH DELICA PLUS LANCET 33 gauge misc 07/10/2021 024 pregabalin (LYRICA) 300 mg capsuleIndications:Chr onic low back pain TAKE 1 CAPSULE BY MOUTH TWICE DAILY. DAILY MAX: 2 CAPSULES 180 capsule 07/29/2021 09/26/2021 promethazine (PHENERGAN) 25 mg tabletIndications:Naus ea TAKE ONE TABLET BY MOUTH EVERY SIX HOURS NEEDED for nausea 30 Tablet 06/22/2021 10/09/2021 roflumilast (DALIRESP) 500 mcg tabletIndications:Linoleum Layer Apprentice majo obstructive pulmonary disease, unspecified COPD type (HCC-CMS) Take 1 Tab by mouth daily. 90 Tab 3 11/07/2020 11/24/2021 rOPINIRole (REQUIP) 2 mg tabletIndications:Rest less legs syndrome TAKE 1 TABLET BY MOUTH NIGHTLY AT BEDTIME. 90 Tablet 07/07/2021 10/03/2021 SPIRIVA RESPIMAT 1.25 mcg/actuation inhalerIndications:Chr onic obstructive pulmonary disease, unspecified COPD type (HCC-CMS) INHALE TWO PUFFS BY MOUTH DAILY DIRECTED 12 g 3 02/01/2020 01/27/2023 SUMAtriptan (IMITREX) 100 mg tabletIndications:Migr lu without status migrainosus, not intractable, unspecified migraine type tAKE 1 TABLET BY MOUTH ONCE NEEDED FOR UP TO 1 DOSE FOR MIGRAINE 9 Tablet 2 06/06/2021 09/04/2021 tamsulosin (FLOMAX) 0.4 mg capsuleIndications:Hes itancy Take 1 Cap by mouth daily. 90 Cap 3 08/30/2019 01/27/2023 zolpidem (AMBIEN) 5 mg tabletIndications:Inso mnia, unspecified type Take 1 Tablet by mouth at bedtime as needed for up to 6 days for Sleep. Daily Max: 5 mg 6 Tablet 08/12/2021 08/26/2021 zolpidem (AMBIEN) 5 mg tablet Take 1 Tablet by mouth at bedtime as needed for up to 28 days for Sleep. January08/16/21 Daily Max: 5 mg 28 Tablet 08/18/2021 08/26/2021 documented as of this encounter Discharge Disposition Disposition Code Departure Means Destination Home or Self Care documented in this encounter Plan of Treatment Upcoming Encounters Date Type Department Care Team (Late st Contact Info) Description 06/29/2024 14:15 EDT Office Visit [facility] [address] [place] [address] Jean Munoz MD [address] [place] [address] documented as of this encounter Visit Diagnoses Not on filedocumented in this encounter Care Teams Lock And Dam Operator Relationship Specialty Start Date End Date Jean Munoz MD [address] [place] [address] PCP - General 12/31/08 Manny Rizzo MD [address] [place] [phone] 04/20/10 Afia Valle MD [address] [place] [address], [facility] 2 [place] [phone] Care Team Radiation Oncology 07/02/21 documented as of this encounter
--- OUTSIDE RECORDS SUMMARY | 2024-06-10 07:09 | XMS_ITS | Encounter Summary ---
Author Organization [facility] Address [address] [place] [address] Care Team Providers Care Director Vaccine Name Role Phone Jean Munoz MD Primary Care Provider Manny Rizzo MD Unavailable Afia Valle MD Unavailable [phone] Jesi Leong Unavailable Reason for Referral * Radiology Services (Routine/Next Available) - Authorization Not Required Specialty Diagnoses / Procedures Referred By [facility] Referred To Contact Diagnoses Malignant neoplasm of upper lobe, right bronchus or lung (HCC-CMS) Procedures CT CHEST WO CONTRAST Afia Valle MD 111 [facility], Level [address] [place] [address] [facility] Referral ID Status Reason Start Date Expiration Date Visits Requested Visits Authorized [id number] Authorization Not Required 12/31/2021 1 1 Reason for Visit * Reason Comments Lung Cancer Follow up Encounter Details Date Type Department Care Team (Late st Contact Info) Description 12/31/2021 10:00 EDT Office Visit [facility] Cancer Center Radiation Oncology - [address] [id number] Afia Valle MD 111 [facility], [address] [place] [address] Malignant neoplasm of upper lobe, [...] Sign Reading Time Taken Comments Blood Pressure 115/77 12/31/2021 0959 EDT Pulse 82 12/31/202159 EDT Temperature 36.5 ??C (97.7 ??F) 12/31/202159 EDT Respiratory Rate - - Oxygen Saturation 98% 12/31/2021958 EDT Inhaled Oxygen Concentration - - Weight 82.7 kg (182 lb 6.4 oz) 12/31/202159 E DT Height 162.5 cm (5' 3.98) 12/31/202159 EDT Body Mass Index 31.33 12/31/2021 0959 EDT documented in this encounter Functional Status [...] of this encounter Progress Notes * Afia Valle MD - 12/31/2021 1000 EDT Patient Name: Liset Viera (1960) Patient Provider: Afia Valle MD Date of service: 12/31/2021 Radiation Oncology Follow-Up Note Identification/Chief Compliant Liset Viera is a 61 y.o. female with COPD and lung cancer, [id number] at least stage IIB NSCLC ofthe right upper lobe with an intrapulmonary node s/p EBRT to 60 Gy in 15 fractions completed 08/20/21. Ms. Viera presents today for routine follow-up. Interval History Ms. Viera Is overall doing well. she reports no changes in breathing (denies worsening cough or shortness of breath). Denies rib or chest wall pain. CT CHEST WO CONTRAST 12/26/2021 Lungs, airways, pleura: 12 x 7 mm right apical nodule (image 123 series 203), decreased from 14 x 8mm, with very mild surrounding groundglass opacity compatible with radiation change. Increased size of a groundglass nodule in the periphery of the left upper lobe, now measuring 11 x 13 mm with underlying cystic changes that could represent dilated airways or emphysema (image 203 series 197), previously approximately 7 mm when remeasured in a similar fashion. Pain scale 0 / 10 Performance Status: 0: Fully active, able to carry on all pre-disease performance without restriction General: Well-appearing female in no apparent distress. HEENT: Anicteric sclera. Pupils equally round and reactive to light and accommodation. Extra-ocularmovements intact. Respiratory: Clear, unlabored breathing. Abdomen: Non-distended. Extremities: No lower extremity edema. MSK: Moves all extremities without difficulty. Neurologic: Cranial nerves II through XII grossly intact. 5/5 symmetric strength of the bilateral upper and lower extremities. No dysarthria or dysmetria. Dermatologic: No skin rashes, or jaundice. Assessment/Plan Ms. Viera is doing well 4 months from lung hypofractioanted EBRT with no evidence of local, regional or distant recurrence, and no appreciable late toxicity. There is a growing GGO with no solid component in the THANH. I will plan to see her back in [address] chest. I spent a total of 15 minutes on the date of this encounter meeting with the patient and reviewing documentation/coordinating care as described in the above note. No procedures were performed at the time of the visit. Afia Valle MD Contact Center Specialist of Radiation Oncology [facility] documented in this encounter Plan of Treatment Upcoming Encounters Date Type Department Care Team (Late st Contact Info) Description 06/29/2024 14:15 EDT Office Visit [facility] [address] [place] [address] Jean Munoz MD [address] [place] [address] documented as of this encounter [...] treatmentresponse. Status post external beam radiation therapy [id number]/2021. Technique: CT scan of the chest was [...] 4. Stable incidental findings. Afia Valle MD IM CT ORDERAB LES documented in this encounter [...] colon documented in this encounter Care Teams Director Vaccine Relationship Specialty Start Date End Date Jean Munoz MD [address] [place] [address] PCP - General 12/31/08 Manny Rizzo MD [address] [place] [phone] 04/20/10 Afia Valle MD 111 [facility] 2 [place] [phone] Care Team Radiation Oncology 07/02/21 Jesi Leong, [facility] [address] [place] [phone] Ratchet Setter 12/24/21 09/20/22 documented as of this encounter
--- OUTSIDE RECORDS SUMMARY | 2024-06-10 07:09 | XMS_ITS | Encounter Summary ---
Author Organization [facility] Address [address] [place] [address] Care Team Providers Care Tank Cleaning Supervisor Name Role Phone Jean Munoz MD Primary Care Provider Manny Rizzo MD Unavailable Afia Valle MD Unavailable Reason for Visit * Reason Comments Other Encounter Details Date Type Department Care Team (Late st Contact Info) Description 11/02/2021 Refill [facility] Family Medicine [facility] [address] [place] [address] Jean Munoz MD [address] [place] [phone] Other Social History Tobacco Use Types [...] Telephone Encounter - Jean Munoz MD - 11/04/2021 1211 EST Has prescription from 10/13-11/10. Should not need new prescription now. Okay to fill next prescription as written on 11/10. Please let them know, thanks. * Telephone Encounter - Lizz Negro RN - 11/04/2021 0814 EST Medication(s) Requested: ambien 5 mg [facility] Is patient out of medication? unknown Last Refill Date: 10/13/21 Last Visit Date with Ordering Provider: 08/26/21 Next Non-Acute Visit Date Scheduled with Care Team: 11/26/21 LIZZ NEGRO RN 11/04/2021 8:14 documented in this encounter Plan of Treatment Upcoming Encounters Date Type Department Care Team (Late st Contact Info) Description 06/29/2024 14:15 EDT Office Visit [facility] [address] [place] [address] Jean Munoz MD [address] [place] [phone] documented as of this encounter Visit [...] colon documented in this encounter Care Teams Tank Cleaning Supervisor Relationship Specialty Start Date End Date Jean Munoz MD [address] [place] [phone] PCP - General 12/31/08 Manny Rizzo MD [address] [place] [phone] 04/20/10 Afia Valle MD [address] [facility] 2 [place] [address] MD Care Team Radiation Oncology 07/02/21 documented as of this encounter
--- OUTSIDE RECORDS SUMMARY | 2024-06-10 07:09 | XMS_ITS | Encounter Summary ---
Author Organization [facility] Address [address] [place] [address] Care Team Providers Care Banquet Attendant Name Role Phone Jean Munoz MD Primary Care Provider Manny Rizzo MD Unavailable Afia Valle MD Unavailable [phone] Jesi Leong PHYSICIAN NEONATOLOGY Unavailable [phone] SaloJesi shanks PHYSICIAN NEONATOLOGY Unavailable [phone] Reason for Visit * Reason Comments Other Encounter Details Date Type Department Care Team (Late st Contact Info) Description 12/31/2021 [facility] Family Medicine [facility] [address] [place] [address] Jean Munoz MD [address] [place] [phone] Other Social History Tobacco Use Types [...] TO 1 DOSE FOR MIGRAINE 9 Tablet 01/02/2022 02/04/2022 documented in this encounter Miscellaneous Notes * Telephone Encounter - Sebastián Velazquez RN - 01/02/2022 1204 EDT Requested Prescriptions Pending Prescriptions Disp Refills ??? SUMAtriptan (IMITREX) 100 mg tablet [Pharmacy Med Name: SUMAtriptan Succinate Oral Tablet 100 MG] 9 Tablet 0 Sig: tAKE 1 TABLET BY MOUTH ONCE NEEDED FOR UP TO 1 DOSE FOR MIGRAINE [facility] - [place], [place] - [address] Confirmed Pharmacy? Yes Patient out of medication? Unknown Last Refill Date: 12/05/21 Refills left? (explain exceptions requiring early refill) No Recent Visits Date Type Provider Dept 04/24/21 Office Visit Jean Munoz MD [facility] Showing recent visits within past 540 days with a meds authorizing provider and meeting all other requirements Future Appointments No visits were found meeting these conditions. Showing future appointments within next 150 days with a meds authorizing provider and meeting all other requirements Future appointment: Other - SEBASTIÁN VELAZQUEZ RN 01/02/2022 12:05 documented in this encounter Plan of Treatment Upcoming Encounters Date Type Department Care Team (Late st Contact Info) Description 06/29/2024 14:15 EDT Office Visit [facility] [address] [place], [place] [phone] Jean Munoz MD [address] [place] [phone] documented as of this encounter Visit Diagnoses [...] FOR UP TO 1 DOSE FOR MIGRAINE 12/05/2021 01/02/2022 documented as of this encounter Additional Health Concerns Infection Onset Date Last Indicated Resolved Time R/O COVID-19 05/15/2022 05/15/2022 05/20/2022 22:1 6 EDT R/O COVID-19 11/14/2022 11/14/2022 11/14/2022 19:1 6 EST documented as of this encounter Care Teams Banquet Attendant Relationship Specialty Start Date End Date Jean Munoz MD [address] [place] [phone] PCP - General 12/31/08 Manny Rizzo MD [facility]5 [place] [phone] 04/20/10 Afia Valle MD 111 [facility], [facility] 2 [place] [phone] Care Team Radiation Oncology 07/02/21 Jesi Leong, [facility] 3 [place] [phone] Captain Cannery Tender 12/24/21 09/20/22 Jesi Leong, [facility] 3 [place] [phone] Behavioral Health Captain Cannery TenderRoof [employer] Coal [employer]er [employer] 10/19/22 01/23/24 documented as of this encounter
--- OUTSIDE RECORDS SUMMARY | 2024-06-10 07:09 | XMS_ITS | Encounter Summary ---
Author Organization [facility] Address [address] [place] [address] Care Team Providers Care Steel Detailer Name Role Phone Jean Munoz MD Primary Care Provider Manny Rizzo MD Unavailable Afia Valle MD Unavailable Reason for Visit * Reason Comments Other Encounter Details Date Type Department Care Team (Late st Contact Info) Description 10/06/2021 Refill [facility] Family Medicine [facility] 3 [place] [address] Jean Munoz MD [address] [place] [phone] Other Social History Tobacco Use Types [...] 14:15 EDT Office Visit [facility] 3 [place] [address] Jean Munoz MD [address] [place] [address] documented as of this encounter [...] colon documented in this encounter Care Teams Steel Detailer Relationship Specialty Start Date End Date Jean Munoz MD [address] [place] [phone] PCP - General 12/31/08 Manny Rizzo MD [address] [place] [address] 04/20/10 Afia Valle MD [address] [place] [address] 2 [place] [address] Care Team Radiation Oncology 07/02/21 documented as of this encounter
--- OUTSIDE RECORDS SUMMARY | 2024-06-10 07:09 | XMS_ITS | Encounter Summary ---
Author Organization [facility] Address [address] [place] [address] Care Team Providers Care Trailer Steerer Name Role Phone Jean Munoz MD Primary Care Provider Manny Rizzo MD Unavailable Afia Valle MD Unavailable Reason for Visit * Reason Comments Other Encounter Details Date Type Department Care Team (Late st Contact Info) Description 09/08/2021 Refill [facility] Family Medicine [facility] [address] [place] [address] Jean Munoz MD [address] [place] [phone] Other Social History Tobacco Use Types [...] Info) Description 06/29/2024 14:15 EDT Office Visit [facility] [address] [place], [place] [phone] Jean Munoz MD [address] [place] [phone] documented as of this encounter Visit Diagnoses Not on filedocumented in this encounter Care Teams Trailer Steerer Relationship Specialty Start Date End Date Jean Munoz MD [address] [place] [phone] PCP - General 12/31/08 [place] [address] [place] [phone] 04/20/10 Afia Valle MD [address] [place] [address] 2 [place] [phone] Care Team Radiation Oncology 07/02/21 documented as of this encounter
--- OUTSIDE RECORDS SUMMARY | 2024-06-10 07:09 | XMS_ITS | Encounter Summary ---
Author Organization [facility] Address [address] [place] [address] Care Team Providers Care Chief Financial Officer Name Role Phone Jean Munoz MD Primary Care Provider Manny Rizzo MD Unavailable Afia Valle MD Unavailable Reason for Visit * Reason Onset Date Comments Follow-up 08/28/2021 Encounter Details Date Type Department Care Team (Late st Contact Info) Description 08/28/2021 Telephone [facility] Radiation Oncology - Main [place] [address] [place] [address] Deidre Hall, CHRIS [address] [place] [address] Follow-up Social History Tobacco Use Types Packs/Day [...] slept in a penitentiary (including now)? No 04/24/2021 Interpersonal Safety Answer Date Record ed How often does anyone, claudia olng family, hit, punch or physically hurt you? [...] encounter Miscellaneous Notes * Telephone Encounter - Deidre Hall RN - 08/28/2021 9296 EST END OF TREATMENT CALL: I called and spoke with Liset for follow up after completing radiation therapy to the right upper lobe of the lung on 08/20/21. Liset reports that she has a mild increase in her cough, there is some sputum, it rattles around herlungs and sometimes she can expectorate it, it is clear in color. She denies any increase in SOB and she denies any chest pain. She has some throat soreness with eating and that is improving. She does feel some fatigue. The skin on the right chest has some mild erythema and she is using Aquaphor with good effect. Liset was reminded of her appt for a chest CT on 11/14/21 and a f/u appt with Dr Valle on 11/19/21. I asked Liset to call us with any issues or concerns before then. documented in this encounter Plan of Treatment Upcoming Encounters Date Type Department Care Team (Late st Contact Info) Description 06/29/2024 14:15 EDT Office Visit [address] [address] Jean Munoz MD [address] [place] [phone] documented as of this encounter Visit Diagnoses Not on filedocumented in this encounter Care Teams Chief Financial Officer Relationship Specialty Start Date End Date Jean Munoz MD [address] [place] [phone] PCP - General 12/31/08 Manny Rizzo MD [address] [place] [phone] 04/20/10 Afia Valle MD [address] [facility] Level [address] [place] [phone] MD Care Team Radiation Oncology 07/02/21 documented as of this encounter
--- OUTSIDE RECORDS SUMMARY | 2024-06-10 07:09 | XMS_ITS | Encounter Summary ---
Author Organization [facility] Address [address] [place] [address] Care Team Providers Care Lining Repairer Name Role Phone Jean Munoz MD Primary Care Provider Manny Rizzo MD Unavailable Afia Valle MD Unavailable [phone] Reason for Visit * Reason Comments Other Encounter Details Date Type Department Care Team (Late st Contact Info) Description 08/26/2021 Refill [facility] Family Medicine [facility] [address] [place] [address] Jean Munoz MD [address] [place] [phone] Other Social History Tobacco Use Types [...] encounter Miscellaneous Notes * Telephone Encounter - Kymberly Napier RN - 08/27/2021 1200 EST Spoke with pharmacy and Lyrica last filled on 08/05/21 for 90 day supply. Pharmacy not sure if theytriggered the refill or the patient, since there are no refills on file. We can refill med now and they will put on file or we can wait until med is closer to being due again for refill. Informed pharmacy, we will wait to send refill. Will forward message to Dr. Munoz. * Telephone Encounter - Jean Munoz MD - 08/26/2021 1746 EST Please call pharmacy to clarify, last prescription for pregabalin sent on 07/29/2021 for 300 mg 1 capsule twice daily #180 with no refills. This should be a 90-day supply, with end date 10/29/2021. I verified fill date in [facility]. Please confirm with pharmacy, thanks. * Telephone Encounter - Lizz Negro RN - 08/26/2021 0817 EST Medication(s) Requested: lyrica 300 mg Preferred Pharmacy: [facility] Is patient out of medication? unknown Last Refill Date: 07/29/21 Last Visit Date with Ordering Provider: 06/25/21 Next Non-Acute Visit Date Scheduled with Care Team: 08/26/21 LIZZ NEGRO RN 08/26/2021 8:17 documented in this encounter Plan of Treatment Upcoming Encounters Date Type Department Care Team (Late st Contact Info) Description 06/29/2024 14:15 EDT Office Visit [address] [address] Jean Munoz MD [address] [place] [phone] documented as of this encounter Visit Diagnoses [...] colon documented in this encounter Care Teams Lining Repairer Relationship Specialty Start Date End Date Jean Munoz MD [address] [place] [phone] PCP - General 12/31/08 [place] [address] [place] [phone] 04/20/10 Afia Valle MD [address] [place] [address] [address] [place] [phone] Care Team Radiation Oncology 07/02/21 documented as of this encounter
--- OUTSIDE RECORDS SUMMARY | 2024-06-10 07:09 | XMS_ITS | Encounter Summary ---
Author Organization [facility] Address [address] [place] [address] Care Team Providers Care Aviation Electronic Warfare Operator Name Role Phone Jean Munoz MD Primary Care Provider Manny Rizzo MD Unavailable Afia Valle MD Unavailable [phone] Jesi Leong CHLORINE PLANT OPERATOR Unavailable SaloJesi shanks CHLORINE PLANT OPERATOR Unavailable Reason for Visit * Reason Comments Other Encounter Details Date Type Department Care Team (Late st Contact Info) Description 01/03/2022 [facility] Family Medicine [facility] 3 [place] [address] Jean Munoz MD [address] [place] [phone] Other Social History Tobacco Use Types [...] slept in a longterm (including now)? No 04/24/2021 Interpersonal Safety Answer [...] Miscellaneous Notes * Telephone Encounter - Caroline Swanson RN - 01/05/2022 0813 EDT Medication(s) Requested: zolpidem Preferred Pharmacy: [facility] Is patient out of medication? Unknown Last Refill Date: 01/05/22 and 02/02/22 on file as post dated RX at [facility] CAROLINE SWANSON RN 01/05/2022 8:13 documented in this encounter Plan of Treatment Upcoming Encounters Date Type Department Care Team (Late st Contact Info) Description 06/29/2024 14:15 EDT Office Visit [facility] [address] [place], [place] [phone] Jean Munoz MD [address] [place] [phone] documented as of this encounter [...] documented as of this encounter Care Teams Aviation Electronic Warfare Operator Relationship Specialty Start Date End Date Jean Munoz MD [address] [place] [phone] PCP - General 12/31/08 Manny Rizzo MD [address] [place] [phone] 04/20/10 Afia Valle MD [address] [place] [address] 2 [place] [phone] MD Care Team Radiation Oncology 07/02/21 Jesi Leong CHLORINE PLANT OPERATOR [address] [place] [phone] Service Delivery Analyst 12/24/21 09/20/22 Jesi Leong CHLORINE PLANT OPERATOR [address] [place] [phone] Behavioral Health Service Delivery AnalystAutomotive Quality Engineer Care 10/19/22 01/23/24 documented as of this encounter
--- OUTSIDE RECORDS SUMMARY | 2024-06-10 07:09 | XMS_ITS | Encounter Summary ---
Author Organization [facility] Address [address] [place] [address] Care Team Providers Care Sectional Belt Mold Assembler Name Role Phone Jean Munoz MD Primary Care Provider Manny Rizzo MD Unavailable Afia Valle MD Unavailable [phone] Jesi Leong SECURITIES UNDERWRITER Unavailable Encounter Details Date Type Department Care Team (Late st Contact Info) Description 01/01/2022 Community Health Team [facility] [place] 3 [place] [address] Jesi Leong SECURITIES UNDERWRITER [address] [place] [address] Social History Tobacco Use Types [...] as of this encounter Progress Notes * LauraEdwardJesiFADUMO berry - 01/01/2022 1205 EDT Social Work Power Chisel OperatorRoute Sales Delivery Driver Encounter Date: 01/01/2022 Swatch Folder (JOSH) sent e-mail message to Liset providing the following warm leads for considerationfor outpatient counseling: Kamila Dai MS and Jean Marcum MA (Jean won't have an opening for another month). JOSH strongly encourages Liset to reach out to clinician of choice as soon as possible as openings shift rapidly. PLAN: Follow up call as planned January 14 at 1pm. .. [facility], [address] [place] [address] Total Time: Care Coord: 20 mins, E-mail: 5 mins Chartin mins Referral: Kamila Dai MS or Jean Marcum MA Follow up: January 14, 2022 at 1pm as planned via phone w/ SW. Status: Active documented in this encounter Plan of Treatment Upcoming Encounters Date Type Department Care Team (Late st Contact Info) Description 06/29/2024 14:15 EDT Office Visit [address] [address] Jean Munoz MD [address] [place] [phone] documented as of this encounter Visit Diagnoses Not on filedocumented in this encounter Care Teams Sectional Belt Mold Assembler Relationship Specialty Start Date End Date Jean Munoz MD [address] [place] [phone] PCP - General 12/31/08 Manny Rizzo MD [facility]5 [place] [phone] 04/20/10 Afia Valle MD [address] [place] [address] 2 [place] [phone] MD Care Team Radiation Oncology 07/02/21 Jesi Leong, [facility] [address] [place] [phone] Power Chisel Operator 12/24/21 09/20/22 documented as of this encounter
--- OUTSIDE RECORDS SUMMARY | 2024-06-10 07:09 | XMS_ITS | Encounter Summary ---
Author Organization [facility] Address [address] [place] [address] Care Team Providers Care Tunnel Elastic Operator Chainstitch Name Role Phone Jean Munoz MD Primary Care Provider Manny Rizzo MD Unavailable Afia Valle MD Unavailable Reason for Visit * Reason Comments Chronic Pain Encounter Details Date Type Department Care Team (Late st Contact Info) Description 11/26/2021 13:15 EDT Telemedicine [facility] [address] [place] [address] Jean Munoz MD [address] [place] [phone] Primary cancer of right upper lobe of lung (HCC-CMS) (HCC) (HCC-CMS) (Primary Dx); Marital stress; Anxiety; Chronic pain syndrome; Chronic use of opiate for therapeutic purpose; Pain medication agreement; Primary narcolepsy without cataplexy; Restless legs syndrome; Insomnia, unspecified type; Chronic obstructive pulmonary disease, unspecified COPD type (HCC-CMS) (HCC) (HCC-CMS); Allergic rhinitis, unspecified seasonality, unspecified trigger Social History Tobacco Use Types Packs/Day Years [...] End Da te zolpidem (AMBIEN) 5 mg tabletIndications:Insom yesi, unspecified type Take 1 Tablet by mouth at bedtime as needed for up to 28 days for Sleep. For insomnia. May fill on Wednesday12/06/2021. Daily Max: 5 mg 28 Tablet 12/08/2021 03/30/2022 zolpidem (AMBIEN) 5 mg tabletIndications:Insom yesi, unspecified type Take 1 Tablet by mouth at bedtime for 28 days. For insomnia. May fill on 01/03/2022. Daily Max: 5 mg 28 Tablet 01/05/2022 02/05/2022 zolpidem (AMBIEN) 5 mg tabletIndications:Insom yesi, unspecified type Take 1 Tablet by mouth at bedtime for 28 days. For insomnia. May fill on 01/31/2022. Daily Max: 5 mg 28 Tablet 02/02/2022 02/05/2022 rOPINIRole (REQUIP) 2 mg tabletIndications:Restl ess legs syndrome Take 1 Tablet by mouth at bedtime. 90 Tablet 3 11/26/2021 01/04/2023 roflumilast (DALIRESP) 500 mcg tabletIndications:Chron ic obstructive pulmonary disease, unspecified COPD type (HCC-CMS) Take 1 Tablet by mouth daily. 90 Tablet 3 11/26/2021 02/22/2023 montelukast (SINGULAIR) 10 mg tabletIndications:Aller gic rhinitis, unspecified seasonality, unspecified trigger TAKE 1 TABLET BY MOUTH EVERY DAY for allergies 90 Tablet 3 11/26/2021 10/06/2023 methylphenidate HCl (RITALIN;METHYLIN) 20 mg tabletIndications:Prima ry narcolepsy without cataplexy Take 2 Tablets by mouth daily for 28 days. For narcolepsy. May fill on 12/06/2021. Daily Max: 40 mg 56 Tablet 12/08/2021 04/23/2022 methylphenidate HCl (RITALIN;METHYLIN) 20 mg tabletIndications:Prima ry narcolepsy without cataplexy Take 2 Tablets by mouth daily for 28 days. For narcolepsy. May fill on 01/03/2022. Daily Max: 40 mg 56 Tablet 01/05/2022 02/05/2022 methylphenidate HCl (RITALIN;METHYLIN) 20 mg tabletIndications:Prima ry narcolepsy without cataplexy Take 2 Tablets by mouth daily for 28 days. For narcolepsy. May fill on 01/31/2022. Daily Max: 40 mg 56 Tablet 02/02/2022 02/05/2022 methylphenidate HCl (RITALIN;METHYLIN) 10 mg tabletIndications:Prima ry narcolepsy without cataplexy Take 1 Tablet by mouth daily for 28 days. For narcolepsy. May fill on 12/06/2021. Daily Max: 10 mg 28 Tablet 12/08/2021 04/23/2022 methylphenidate HCl (RITALIN;METHYLIN) 10 mg tabletIndications:Prima ry narcolepsy without cataplexy Take 1 Tablet by mouth daily for 28 days. For narcolepsy. May fill on 01/03/2022. Daily Max: 10 mg 28 Tablet 01/05/2022 02/05/2022 methylphenidate HCl (RITALIN;METHYLIN) 10 mg tabletIndications:Prima ry narcolepsy without cataplexy Take 1 Tablet by mouth daily for 28 days. For narcolepsy. May fill on 01/31/2022. Daily Max: 10 mg 28 Tablet 02/02/2022 02/05/2022 HYDROcodone-acetaminoph en (NORCO) 7.5-325 mg per tabletIndications:Chron ic pain syndrome,Chronic use of opiate for therapeutic purpose,Pain medication agreement Take 1 Tablet by mouth every 6 hours as needed for up to 28 days for Pain. For chronic pain. May fill on 12/06/2021. Daily Max: 4 Tablets 112 Tablet 12/08/2021 04/23/2022 HYDROcodone-acetaminoph en (NORCO) 7.5-325 mg per tabletIndications:Chron ic 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 For chronic pain. May fill on 01/03/2022. Daily Max: 4 Tablets 112 Tablet 01/05/2022 02/05/2022 HYDROcodone-acetaminoph en (NORCO) 7.5-325 mg per tabletIndications:Chron ic pain syndrome,Chronic use of opiate for therapeutic purpose,Pain medication agreement Take 1 Tablet by mouth every 6 hours as needed for up to 28 days for Pain. For chronic pain. May fill on 01/31/2022. Daily Max: 4 Tablets 112 Tablet 02/02/2022 02/05/2022 documented in this encounter Progress Notes * Kaitlyn Montero LPN - 11/26/2021 1314 EDT The [place] [employer] Monitoring System query has been completed. Hydrocodone-Acetaminophen 7.5-325 mg: Filled: 11/08/21 Quantity: 26 tabs for 6 days Hydrocodone-Acetaminophen 7.5-325 mg: Filled: 11/08/21 Quantity: 86 tabs for 22 days Methylphenidate 10 mg: Filled: 11/08/21 Quantity: 28 tabs for 28 days Methylphenidate 20 mg: Filled: 11/08/21 Quantity: 56 tabs for 28 days Zolpidem 5 mg: Filled: 11/08/21 Quantity: 28 tabs for 28 days Pregabalin 300 mg: Filled: 11/04/21 Quantity: 180 tabs for 90 days KAITLYN MONTERO LPN * Kaitlyn Montero LPN - 11/26/2021 0923 EDT The concept of ???Telemedicine?? has been [...] MONTERO LPN * Jean Munoz MD - 11/26/2021 1315 EDT Primary Care Video Visit Assessment & Plan Diagnoses and all orders for this visit: Primary cancer of right upper lobe of lung (HCC-CMS) (HCC) CT scan pending. Will follow up with radiation oncology afterwards. Marital stress Anxiety - AMB CONS/FOLLOW UP MEDICAL HOME CARE MANAGEMENT Will refer to social work for discussion lingula counseling and support as well as assistance with power of prosecuting attorney for healthcare. Chronic pain syndrome - HYDROcodone-acetaminophen (NORCO) 7.5-325 mg per tablet - HYDROcodone-acetaminophen (NORCO) 7.5-325 mg per tablet - HYDROcodone-acetaminophen (NORCO) 7.5-325 mg per tablet Seems stable, will renew medication. Recheck 12 weeks. Chronic use of opiate for therapeutic purpose - HYDROcodone-acetaminophen (NORCO) 7.5-325 mg per tablet - HYDROcodone-acetaminophen (NORCO) 7.5-325 mg per tablet - HYDROcodone-acetaminophen (NORCO) 7.5-325 mg per tablet Pain medication agreement - HYDROcodone-acetaminophen (NORCO) 7.5-325 mg per tablet - HYDROcodone-acetaminophen (NORCO) 7.5-325 mg per tablet - HYDROcodone-acetaminophen (NORCO) 7.5-325 mg per tablet Primary narcolepsy without cataplexy - methylphenidate HCl (RITALIN;METHYLIN) 10 mg tablet - methylphenidate HCl (RITALIN;METHYLIN) 10 mg tablet - methylphenidate HCl (RITALIN;METHYLIN) 10 mg tablet - methylphenidate HCl (RITALIN;METHYLIN) 20 mg tablet - methylphenidate HCl (RITALIN;METHYLIN) 20 mg tablet - methylphenidate HCl (RITALIN;METHYLIN) 20 mg tablet Restless legs syndrome - rOPINIRole (REQUIP) 2 mg tablet Insomnia, unspecified type - zolpidem (AMBIEN) 5 mg tablet - zolpidem (AMBIEN) 5 mg tablet - zolpidem (AMBIEN) 5 mg tablet Chronic obstructive pulmonary disease, unspecified COPD type ([facility]-CMS) ([facility]) - roflumilast (DALIRESP) 500 mcg tablet Allergic rhinitis, unspecified seasonality, unspecified trigger - montelukast (SINGULAIR) 10 mg tablet No follow-ups on file. Patient education was direct. Barriers were assessed and addressed as needed. Subjective Liset is a 60 y.o. female presenting with Chronic Pain HPI Liset is a 60-year-old female with lung cancer followed by Dr. Valle in radiation oncology, has follow-up CT scan pending in the near future. Also has chronic pain, fibromyalgia, anxiety, insomnia and narcolepsy. Has regular follow-up visits for management of prescription medications. Overall has been doing fairly well. Occasional stomach bugs here and there. Breathing has been okay. Occasional cough. No chest pain. Appetite good. Weight variable. Needs prescriptions renewed. Has some stress with her Valente. Interested in counseling and additional support. Does not have relationship with his son Luiz. Is in regular contact with her daughter Yadira who she identifies as her main personal injury attorney. Yadira's phone number is [phone]. She does not have power of prosecuting attorney yet but is interested in discussing that. Data reviewed this visit: problem list/past medical history, current medications, allergies, socialhistory, last visit note, health maintenance items and recent specialist documentation ROS - See HPI TELEMEDICINE VIDEO VISIT Today's visit was provided through telemedicine video conferencing: The location of the patient : Home The location of the provider: Clinic Exam Room The following staff and their role did participate in today's encounter visit: Jean Munoz MD Objective LMP 01/11/1987 Physical Exam alert, cooperative. No significant respiratory distress. documented in this encounter Plan of Treatment Upcoming Encounters Date Type Department Care Team (Late st Contact Info) Description 06/29/2024 14:15 EDT Office Visit [facility] [address] [place] [address] Jean Munoz MD [address] [place] [phone] documented as of this encounter Visit Diagnoses Diagnosis Primary cancer of right upper lobe of lung ([facility]-CMS)- Primary Marital stress Counseling for marital and partner problems, unspecified Anxiety Anxiety state, unspecified Chronic pain syndrome Chronic use of opiate for therapeutic purpose Pain medication agreement Encounter for long-term (current) use of other medications Primary narcolepsy without cataplexy Restless legs syndrome Restless legs syndrome (RLS) Insomnia, unspecified type Chronic obstructive pulmonary disease, unspecified COPD type ([facility]-CMS) Allergic rhinitis, unspecified seasonality, unspecified trigger Screening for osteoporosis- Primary Special screening for [...] End Da te roflumilast (DALIRESP) 500 mcg tabletIndications:Chron ic obstructive pulmonary disease, unspecified COPD type ([facility]-CMS) Take 1 Tab by mouth daily. Reorder 11/07/2020 11/24/2021 montelukast (SINGULAIR) 10 mg tabletIndications:Aller gic rhinitis, unspecified seasonality, unspecified trigger TAKE 1 TABLET BY MOUTH EVERY DAY for allergies Reorder 11/06/2020 11/24/2021 HYDROcodone-acetaminoph en (NORCO) 7.5-325 mg per tabletIndications:Chron ic pain syndrome,Chronic use of opiate for therapeutic purpose,Pain medication agreement Take 1 Tablet by mouth every 6 hours as needed for up to 28 days for Pain. Daily Max: 4 Tablets Reorder 11/10/2021 11/24/2021 HYDROcodone-acetaminoph en (NORCO) 7.5-325 mg per tabletIndications:Chron ic 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 Chronic pain Daily Max: 4 Tablets Reorder 09/15/2021 11/24/2021 methylphenidate HCl (RITALIN;METHYLIN) 10 mg tabletIndications:Prima ry narcolepsy without cataplexy Take 1 Tablet by mouth daily for 28 days. For narcolepsy Daily Max: 10 mg Reorder 11/10/2021 11/24/2021 methylphenidate HCl (RITALIN;METHYLIN) 10 mg tabletIndications:Prima ry narcolepsy without cataplexy Take 1 Tablet by mouth daily for 28 days. For narcolepsy Daily Max: 10 mg Reorder 10/13/2021 11/24/2021 methylphenidate HCl (RITALIN;METHYLIN) 10 mg tabletIndications:Prima ry narcolepsy without cataplexy Take 1 Tablet by mouth daily for 28 days. For narcolepsy Daily Max: 10 mg Reorder 09/15/2021 11/24/2021 methylphenidate HCl (RITALIN;METHYLIN) 20 mg tabletIndications:Prima ry narcolepsy without cataplexy Take 2 Tablets by mouth daily for 28 days. For narcolepsy Daily Max: 40 mg Reorder 11/10/2021 11/24/2021 methylphenidate HCl (RITALIN;METHYLIN) 20 mg tabletIndications:Prima ry narcolepsy without cataplexy Take 2 Tablets by mouth daily for 28 days. For narcolepsy Daily Max: 40 mg Reorder 10/13/2021 11/24/2021 methylphenidate HCl (RITALIN;METHYLIN) 20 mg tabletIndications:Prima ry narcolepsy without cataplexy Take 2 Tablets by mouth daily for 28 days. For narcolepsy Daily Max: 40 mg Reorder 09/15/2021 11/24/2021 zolpidem (AMBIEN) 5 mg tabletIndications:Insom yesi, unspecified type Take 1 Tablet by mouth at bedtime for 28 days. January fill Wednesday09/12/2022 Daily Max: 5 mg Reorder 09/15/2021 11/24/2021 zolpidem (AMBIEN) 5 mg tabletIndications:Insom yesi, unspecified type Take 1 Tablet by mouth at bedtime for 28 days. January fill Wednesday10/11/2021 Daily Max: 5 mg Reorder 10/13/2021 11/24/2021 zolpidem (AMBIEN) 5 mg tabletIndications:Insom yesi, unspecified type Take 1 Tablet by mouth at bedtime as needed for up to 28 days for Sleep. January11/08/2021 Daily Max: 5 mg Reorder 11/10/2021 11/24/2021 rOPINIRole (REQUIP) 2 mg tabletIndications:Restl ess legs syndrome TAKE 1 TABLET BY MOUTH NIGHTLY AT BEDTIME. Reorder 10/03/2021 11/24/2021 HYDROcodone-acetaminoph en (NORCO) 7.5-325 mg per tabletIndications:Chron ic pain syndrome,Chronic use of opiate for therapeutic purpose,Pain medication agreement Take 1 Tablet by mouth every 6 hours as needed for up to 23 days for Pain. For chronic pain Daily Max: 4 Tablets Reorder 10/13/2021 11/24/2021 documented as of this encounter Care Teams Tunnel Elastic Operator Chainstitch Relationship Specialty Start Date End Date Jean Munoz MD [address] [place] [phone] PCP - General 12/31/08 Manny Rizzo MD [address] [place] [phone] 04/20/10 Afia Valle MD [address] [facility], [facility] [address] [place] [phone] Care Team Radiation Oncology 07/02/21 documented as of this encounter
--- OUTSIDE RECORDS SUMMARY | 2024-06-10 07:09 | XMS_ITS | Encounter Summary ---
Author Organization [facility] Address [address] [place] [address] Care Team Providers Care Second Steward Name Role Phone Jean Munoz MD Primary Care Provider Manny Rizzo MD Unavailable Afia Valle MD Unavailable Jesi Leong SOCIAL MEDIA CONTENT SPECIALIST Unavailable Encounter Details Date Type Department Care Team (Late st Contact Info) Description 12/24/2021 Community Health Team [facility] [place] [address] [place] [address] Jesi Leong SOCIAL MEDIA CONTENT SPECIALIST [address] [place] [phone] Social History Tobacco Use Types [...] this encounter Progress Notes * Jesi Leong, [facility] - 12/24/2021 1307 EDT Social Work Registered Account Administrator Initial Encounter DATE: 12/24/2021 Social Work Registered Account Administrator initial encounter with Liset by phone for intake assessment, original referral from Dr. Munoz. ASSESSMENT Housing: Resides in [facility], w/ , Alexi, 15 years, and female house mate. Liset shares their situation is not ideal. 3 cats my babies. Rent $1000 per month plus utilities. Lived in this unit 7 years. Transportation: They have one car, Alexi takes to work. Employment/Financial: Approximately $800 Social Security per month. Receives [employer]. Former [employer] employee. Health Insurance: Medicaid / Dental unmet needs attends [facility], needs bottom teeth removed / likely denture plate. Needs estimate. CT scan Wednesday for assessment of treatment effectiveness; meeting Oncology MD next follow up. Family Support: Daughter lives in [place]. Son lives in [place], unsure where. Two brothers and sister, estranged from older brother and sister. Younger brother frequent connection. Community/Agency Support: None Other: watch tv, games on computer, shaggy Behavior Health Screening: PHQ9 = 26 severe / GAD7 = 21 severe Comment(s): agrees this is accurate today. TOPIC OF CONVERSATION: Engaged patient in conversation related to positive behavior change, self- management, goal setting and action planning using motivational interviewing and active listening.? Chief complaint: I feel on edge constantly, all day, never know mood home in, hypervigilance. Relationship dynamics. 's alcohol use. ??? Counseling goals: to help me get out of this depression, figure out how to deal. ??? History of mental health or substance use treatment: yes in the past, woman from [place]. Can't recall her name, would return if she had openings. Trauma history, ACES. ??? Social Determinants Of Health Concerns: Financial strain, at risk in context of housing. Safetyplan discuss today. ??? Wellness: escape TV, computer o Sleep - disrupted, notes narcolepsy. Two-three hour increments of sleep. o Nutrition - off, only quick items that can be consumed in bedroom. o Physical Activity - limited. ??? Suicide Screen: Thoughts of life ending, no plan or intention to end life by suicide. ??? Substance use: cannabis, helps relax. ?? Counseling preferences: either gender ok, tele-health, weekly. ACTION PLAN:? 1.) Jesi will mail housing applications as discussed to Liset at her home ([facility], [facility], [facility]). Will answer questions next visit if indicated. JOSH did express two year wait minimum. 2.) Liset will call former counselor in [place] to inquire openings / return to care. 3.) Jesi will explore other counseling leads for Liset, female, weekly, tele- health. Jesi willsend warm leads by January 07 via email to Liset. (Cannot get into [employer]) 4.) Liset call call [facility] [phone] to get a visit and referral for her unmet dental needs. Future discussion re: estimate and financial needs for expected bottom plate. 5.) Liset will call [facility] [phone] to schedule routine eye exam. Jesi will place [facility] referral when Liset has new RX for glasses. 6.) Voices for future urgent support as needed related to relationship dynamics: [phone] 7.) Next visit: January 14, 2022 at 1pm via phone w/ Jesi .. [facility], [facility] Total Time: Telephone: 60 mins, Chartin mins, Email: 5 mins Referral: Return to [facility], Return to [facility], Voices in [place] as needed, Counseling TBD. Follow up: January 14, 2022 at 1pm via phone w/ JOSH. Status: Active documented in this encounter Plan of Treatment Upcoming Encounters Date Type Department Care Team (Late st Contact Info) Description 06/29/2024 14:15 EDT Office Visit [facility] [address] [place] [address] Jean Munoz MD [address] [place] [phone] documented as of this encounter Visit Diagnoses Not on filedocumented in this encounter Care Teams Second Steward Relationship Specialty Start Date End Date Jean Munoz MD [address] [place] [phone] PCP - General 12/31/08 Manny Rizzo MD [address] [place] [phone] 04/20/10 Afia Valle MD [address] [facility] [address] [place] [phone] Care Team Radiation Oncology 07/02/21 Jesi Leong, [facility] [address] [place] [phone] Registered Account Administrator 12/24/21 09/20/22 documented as of this encounter
--- OUTSIDE RECORDS SUMMARY | 2024-06-10 07:09 | XMS_ITS | Encounter Summary ---
Author Organization [facility] Address [address] [place] [address] Care Team Providers Care Project/Production Manager Imaging Name Role Phone Jean Munoz MD Primary Care Provider Manny Rizzo MD Unavailable Afia Valle MD Unavailable Reason for Visit * Reason Comments Other Encounter Details Date Type Department Care Team (Late st Contact Info) Description 10/08/2021 Refill [facility] [address] [place] [address] Jean Munoz MD [address] [place] [phone] Other Social History Tobacco Use Types [...] Da te ondansetron (ZOFRAN) 4 mg tabletIndications:Nausea TAKE ONE TABLET BY MOUTH DAILY NEEDED for nausea 30 Tablet 2 10/09/2021 03/29/2023 promethazine (PHENERGAN) 25 mg tabletIndications:Nausea TAKE ONE TABLET BY MOUTH EVERY SIX HOURS NEEDED for nausea 30 Tablet 10/09/2021 12/05/2021 documented in this encounter Miscellaneous Notes * Telephone Encounter - Armand Thornton RN - 10/09/2021 0956 EST Requested Prescriptions Pending Prescriptions Disp Refills ??? promethazine (PHENERGAN) 25 mg tablet [Pharmacy Med Name: Promethazine HCl Oral Tablet 25 MG] 30 Tablet 0 Sig: TAKE ONE TABLET BY MOUTH EVERY SIX HOURS NEEDED for nausea ??? ondansetron (ZOFRAN) 4 mg tablet [Pharmacy Med Name: Ondansetron HCl Oral Tablet 4 MG] 30 Tablet 0 Sig: TAKE ONE TABLET BY MOUTH DAILY NEEDED for nausea Preferred Pharmacy: [facility] Is patient out of medication? Unknown Last Refill Date: Promethazine: 06/22/21 Ondansetron: 10/25/20 Last Visit Date with Ordering Provider: 08/26/21 Next Non-Acute Visit Date Scheduled with Care Team: Please Schedule an Appointment. Return in about 12 weeks (around 11/18/2021) for [facility] phone. -Mailbox full, unable to LM -Will send my chart for appt reminder ARMAND THORNTON RN 10/09/2021 9:29 documented in this encounter Plan of Treatment Upcoming Encounters Date Type Department Care Team (Late st Contact Info) Description 06/29/2024 14:15 EDT Office Visit [facility] [address] [place], [place] [phone] Jean Munoz MD [address] [place] [phone] documented as of this encounter Visit Diagnoses Diagnosis Nausea- Primary Nausea alone Screening for osteoporosis- Primary Special [...] MOUTH EVERY SIX HOURS NEEDED for nausea 06/22/2021 10/09/2021 ondansetron (ZOFRAN) 4 mg tabletIndications:Nausea TAKE ONE TABLET BY MOUTH DAILY NEEDED FOR NAUSEA 10/25/2020 10/09/2021 documented as of this encounter Care Teams Project/Production Manager Imaging Relationship Specialty Start Date End Date Jean Munoz MD [address] [place] [phone] PCP - General 12/31/08 Manny Rizzo MD [address] [place] [phone] 04/20/10 Afia Valle MD [address] [facility] [address] [place] [phone] Care Team Radiation Oncology 07/02/21 documented as of this encounter
--- OUTSIDE RECORDS SUMMARY | 2024-06-10 07:09 | XMS_ITS | Encounter Summary ---
Author Organization [facility] Address [address] [place] [address] Care Team Providers Care Bulk Pallet Builder Name Role Phone Jean Munoz MD Primary Care Provider Manny Rizzo MD Unavailable Afia Valle MD Unavailable Encounter Details Date Type Department Care Team (Late st Contact Info) Description 08/25/2021 Documentation Visit [facility] Radiation Oncology - [address] [phone] Afia Valle MD [address] [place] [address], Level 2 [place] [address] Malignant neoplasm of upper lobe, [...] as of this encounter Miscellaneous Notes * Treatment Summary - Afia Valle MD - 08/25/2021 0827 EST Images from the original note were not included. Radiation Therapy Completion Treatment outcome Completed as planned Disease response to treatment Will be assessed at time of follow-up Follow up timeline 3 months (with CT) Completion date: 08/20/21 Identification: Ms. Viera is a 60 year old woman with COPD and lung cancer, [id number] at least stage IIB NSCLC of the right upper lobe with an intrapulmonary node. She was felt to be a good candidate for hypofractionated EBRT: Radiation Treatments Historical [facility] (Started on 07/29/2021) Most recent fraction: 400 cGy given on 08/20/2021 Total given: 6,000 cGy / 6,000 cGy (15 of 15 fractions) Elapsed Days: 22 Technique: VMAT Treatment Course: Liset Viera tolerated radiation therapy well with expected side effects. CTCAE at end of treatment: She experienced the expected acute side effects of: Fatigue: Grade 1 Esophagitis: Grade 1 Performance Status at end of treatment: 0: Fully active, able to carry on all pre-disease performance without restriction Afia Valle MD Greeter of Radiation Oncology [facility] documented in this encounter Plan of Treatment Upcoming Encounters Date Type Department Care Team (Late st Contact Info) Description 06/29/2024 14:15 EDT Office Visit [facility] [address] [place], [place] [id number] Jean Munoz MD [address] [place] [phone] documented as of this encounter Visit Diagnoses Diagnosis Malignant neoplasm of upper lobe, right bronchus or lung (HCC-CMS)- Primary Screening for osteoporosis- Primary Special screening for osteoporosis Primary narcolepsy without cataplexy Chronic pain syndrome Chronic low back pain Lumbago Chronic use of opiate for therapeutic purpose Pain medication agreement Encounter for long-term (current) use of other medications Screen for colon cancer Special screening for malignant neoplasms, colon documented in this encounter Care Teams Bulk Pallet Builder Relationship Specialty Start Date End Date Jean Munoz MD [address] [place] [phone] PCP - General 12/31/08 Manny Rizzo MD [address] [place] [phone] 04/20/10 Afia Valle MD 111 [facility], Level 2 [place] [phone] Care Team Radiation Oncology 07/02/21 documented as of this encounter
--- OUTSIDE RECORDS SUMMARY | 2024-06-10 07:09 | XMS_ITS | Encounter Summary ---
Author Organization [facility] Address [address] [place] [address] Care Team Providers Care Assembler Truck Trailer Name Role Phone Jean Munoz MD Primary Care Provider Manny Rizzo MD Unavailable Afia Valle MD Unavailable [phone] Reason for Visit * Reason Comments Other Encounter Details Date Type Department Care Team (Late st Contact Info) Description 09/07/2021 Refill [facility] Family Medicine [facility] [address] [place] [address] Jean Munoz MD [address] [place] [phone] Other Social History Tobacco Use Types [...] [facility] [address] [place] [address] Jean Munoz MD [address] [place] [address] documented as of this encounter [...] colon documented in this encounter Care Teams Assembler Truck Trailer Relationship Specialty Start Date End Date Jean Munoz MD [address] [place] [phone] PCP - General 12/31/08 Manny Rizzo MD [address] [place] [address] 04/20/10 Afia Valle MD [address] [place] [address] 2 [place] [address] Care Team Radiation Oncology 07/02/21 documented as of this encounter
--- OUTSIDE RECORDS SUMMARY | 2024-06-10 07:09 | XMS_ITS | Encounter Summary ---
Author Organization [facility] Address [address] [place] [address] Care Team Providers Care Shift Mechanic Name Role Phone Jean Munoz MD Primary Care Provider Manny Rizzo MD Unavailable Afia Valle MD Unavailable Reason for Visit * Reason Onset Date Comments Medications Refill 10/10/2021 Medications Refill 10/13/2021 Encounter Details Date Type Department Care Team (Late st Contact Info) Description 10/10/2021 Refill [facility] 3 [place] [address] Jean Munoz MD [address] [place] [address] Medications Refill; Medications Refill Social [...] For chronic pain Daily Max: 4 Tablets 92 Tablet 10/13/2021 11/24/2021 documented in this encounter Miscellaneous Notes * Telephone Encounter - Armand Thornton RN - 10/13/2021 1223 EST -Call to pt to notify rx was completed - mailbox full -will send my chart to notify. ARMAND THORNTON RN 10/13/2021 12:23 * Telephone Encounter - Jean Munoz MD - 10/13/2021 1038 EST Rx done. * Telephone Encounter - Armand Thornton RN - 10/13/2021 1004 EST Images from the original note were not included. VPMS check: -Pt did sweet pickle maker the rx and realized it was not for the correct quantity once she got home -she had planned to travel to [place] with her daughter yesterday -however now needs to wait for restof rx to be sent prior to leaving there today Routing to PCP to review. ARMAND THORNTON RN 10/13/2021 10:11 * Telephone Encounter - Gabby Beltran - 10/13/2021 0943 EST Reason for Call: Medications Refill Summary/Symptoms: Pt's medication - [facility] - 7.5 - 325 seems to be written for the incorrect amount.20 tab quantity, Pt unsure why? Need to sweet pickle maker today. Onset and Duration? Appointment Offered? No Gabby Beltran 10/13/2021 9:45 documented in this encounter Plan of Treatment Upcoming Encounters Date Type Department Care Team (Late st Contact Info) Description 06/29/2024 14:15 EDT Office Visit [facility] [address] [place] [address] Jean Munoz MD [address] [place] [address] documented as of this encounter [...] pain Daily Max: 4 Tablets Reorder 10/13/2021 10/13/2021 documented as of this encounter Care Teams Shift Mechanic Relationship Specialty Start Date End Date Jean Munoz MD [address] [place] [address] PCP - General 12/31/08 Manny Rizzo MD [address] [place] [phone] 04/20/10 Afia Valle MD [address] [facility], [address] [place] [address] MD Care Team Radiation Oncology 07/02/21 documented as of this encounter
--- OUTSIDE RECORDS SUMMARY | 2024-06-10 07:09 | XMS_ITS | Encounter Summary ---
Author Organization [facility] Address [address] [place] [address] Care Team Providers Care Clinical Rn Liaison Name Role Phone Jean Munoz MD Primary Care Provider Manny Rizzo MD Unavailable Afia Valle MD Unavailable Reason for Visit * Reason Comments Other Encounter Details Date Type Department Care Team (Late st Contact Info) Description 11/30/2021 Refill [facility] Family Medicine [facility] [address] [place] [address] Jean Munoz MD [address] [place] [phone] Other Social History Tobacco Use Types [...] in a senior care (including now)? No 04/24/2021 Interpersonal Safety Answer [...] Miscellaneous Notes * Telephone Encounter - Kymberly Jones RN - 12/02/2021 1113 EDT Filled 11/26/21 documented in this encounter Plan of Treatment Upcoming Encounters Date Type Department Care Team (Late st Contact Info) Description 06/29/2024 14:15 EDT Office Visit [facility] [address] [place] [address] Jean Munoz MD [address] [place] [address] documented as of this encounter Visit Diagnoses Diagnosis Chronic obstructive pulmonary disease, unspecified COPD type ([facility])- Primary Screening for osteoporosis- Primary Special screening for osteoporosis Primary narcolepsy without cataplexy Chronic pain syndrome Chronic low back pain Lumbago Chronic use of opiate for therapeutic purpose Pain medication agreement Encounter for long-term (current) use of other medications Screen for colon cancer Special screening for malignant neoplasms, colon documented in this encounter Care Teams Clinical Rn Liaison Relationship Specialty Start Date End Date Jean Munoz MD [address] [place] [address] PCP - General 12/31/08 Manny Rizzo MD [address] [place] [address] 04/20/10 Afia Valle MD [address] [place] [address] 2 [place] [phone] Care Team Radiation Oncology 07/02/21 documented as of this encounter
--- OUTSIDE RECORDS SUMMARY | 2024-06-10 07:09 | XMS_ITS | Encounter Summary ---
Author Organization [facility] Address [address] [place] [address] Care Team Providers Care Airline Pilot Flight Instructor Name Role Phone Jean Munoz MD Primary Care Provider Manny Rizzo MD Unavailable Afia Valle MD Unavailable [phone] Reason for Visit * Reason Comments Other Encounter Details Date Type Department Care Team (Late st Contact Info) Description 09/03/[address] [facility] Family Medicine [facility] [address] [place] [address] Jean Munoz MD [address] [place] [phone] Other Social History Tobacco Use Types [...] 1 DOSE FOR MIGRAINE 9 Tablet 2 09/04/2021 12/05/2021 documented in this encounter Miscellaneous Notes * Telephone Encounter - Lizz Negro RN - 09/04/2021 1113 EST Medication(s) Requested: imitrex 100 mg Preferred Pharmacy: [facility] Is patient out of medication? unknown Last Refill Date: 06/06/21 Last Visit Date with Ordering Provider: 08/26/21 Next Non-Acute Visit Date Scheduled with Care Team: none LIZZ NEGRO RN 09/04/2021 11:13 documented in this encounter Plan of Treatment Upcoming Encounters Date Type Department Care Team (Late st Contact Info) Description 06/29/2024 14:15 EDT Office Visit [facility] Medicine [facility] [address] [place] [address] Jean Munoz MD [address] [place] [address] documented as of this encounter [...] FOR UP TO 1 DOSE FOR MIGRAINE 06/06/2021 09/04/2021 documented as of this encounter Care Teams Airline Pilot Flight Instructor Relationship Specialty Start Date End Date Jean Munoz MD [address] [place] [phone] PCP - General 12/31/08 Manny Rizzo MD [address] [place] [phone] 04/20/10 Afia Valle MD 111 [facility] 2 [place] [address] Care Team Radiation Oncology 07/02/21 documented as of this encounter
--- OUTSIDE RECORDS SUMMARY | 2024-06-10 07:09 | XMS_ITS | Encounter Summary ---
Author Organization [facility] Address [address] [place] [address] Care Team Providers Care Trial Court Judge Name Role Phone Jean Munoz MD Primary Care Provider Manny Rizzo MD Unavailable Afia Valle MD Unavailable Reason for Visit * Reason Comments Other Encounter Details Date Type Department Care Team (Late st Contact Info) Description 09/25/2021 Refill [facility] Family Medicine [facility] [address] [place] [address] Jean Munoz MD [address] [place] [phone] Other Social History Tobacco Use Types [...] End Da te pregabalin (LYRICA) 300 mg capsuleIndications:Scrap Baler majo low back pain TAKE 1 CAPSULE BY MOUTH TWICE DAILY. DAILY MAX: 2 CAPSULES 180 capsule 1 09/26/2021 05/11/2022 documented in this encounter Miscellaneous Notes * Telephone Encounter - Jean Munoz MD - 09/26/2021 1421 EST Prescription done, however does not have follow-up visit scheduled, [employer] message sent to call toschedule. * Telephone Encounter - Lizz Negro RN - 09/26/2021 0751 EST Medication(s) Requested: lyrica 300 mg [facility] Pharmacy: [facility] Is patient out of medication? unknown Last Refill Date: 07/29/21 Last Visit Date with Ordering Provider: 08/26/21 Next Non-Acute Visit Date Scheduled with Care Team: none LIZZ NEGRO RN 09/26/2021 7:59 documented in this encounter Plan of Treatment Upcoming Encounters Date Type Department Care Team (Late st Contact Info) Description 06/29/2024 14:15 EDT Office Visit [facility] Family Medicine [facility] [address] [place] [address] Jean Munoz MD [address] [place] [phone] documented as of this encounter Visit Diagnoses [...] End Da te pregabalin (LYRICA) 300 mg capsuleIndications:Scrap Baler majo low back pain TAKE 1 CAPSULE BY MOUTH TWICE DAILY. DAILY MAX: 2 CAPSULES 07/29/2021 09/26/2021 documented as of this encounter Care Teams Trial Court Judge Relationship Specialty Start Date End Date Jean Munoz MD [address] [place] [phone] PCP - General 12/31/08 Manny Rizzo MD [address] [place] [phone] 04/20/10 Afia Valle MD [address] [facility], Level [address] [place] [phone] Care Team Radiation Oncology 07/02/21 documented as of this encounter
--- OUTSIDE RECORDS SUMMARY | 2024-06-10 07:09 | XMS_ITS | Encounter Summary ---
Author Organization [facility] Address [address] [place] [address] Care Team Providers Care Rotary Drier Name Role Phone Jean Munoz MD Primary Care Provider Manny Rizzo MD Unavailable Afia Valle MD Unavailable Jesi Leong MARRIAGE AND FAMILY TEACHER Unavailable SaloJesi shanks MARRIAGE AND FAMILY TEACHER Unavailable Reason for Visit * Reason Comments Other Encounter Details Date Type Department Care Team (Late st Contact Info) Description 12/04/2021 [facility] Family Medicine [facility] [address] [place] [address] Jean Munoz MD [address] [place] [phone] Other Social History Tobacco Use Types [...] in a senior living (including now)? No 04/24/2021 Interpersonal Safety Answer [...] SIX HOURS NEEDED for nausea 30 Tablet 12/05/2021 03/11/2022 SUMAtriptan (IMITREX) 100 mg tabletIndications:Migrai ne without status migrainosus, not intractable, unspecified migraine type tAKE 1 TABLET BY MOUTH ONCE NEEDED FOR UP TO 1 DOSE FOR MIGRAINE 9 Tablet 12/05/2021 01/02/2022 documented in this encounter Miscellaneous Notes * Telephone Encounter - Tsering Napier RN - 12/05/2021 1852 EDT Medication(s) Requested: Phenergan, Imitrex Preferred Pharmacy: [facility] Is patient out of medication? Unknown Last Refill Date: 10/09/21 30 tabs, 09/04/21 9 tabs with 2 refills Last Visit Date with Ordering Provider: 04/24/2021 Next Non-Acute Visit Date Scheduled with Care Team: Visit date not found Rxs refilled TSERING NAPIER RN 12/05/2021 18:52 documented in this encounter Plan of Treatment Upcoming Encounters Date Type Department Care Team (Late st Contact Info) Description 06/29/2024 14:15 EDT Office Visit [facility] [address] [place], [place] [phone] Jean Munoz MD [address] [place] [phone] [...] FOR UP TO 1 DOSE FOR MIGRAINE 09/04/2021 12/05/2021 promethazine (PHENERGAN) 25 mg tabletIndications:Nausea TAKE ONE TABLET BY MOUTH EVERY SIX HOURS NEEDED for nausea 10/09/2021 12/05/2021 documented as of this encounter Additional Health Concerns Infection Onset Date Last Indicated Resolved Time R/O COVID-19 05/15/2022 05/15/2022 05/20/2022 22:1 6 EDT R/O COVID-19 11/14/2022 11/14/2022 11/14/2022 19:1 6 EST documented as of this encounter Care Teams Rotary Drier Relationship Specialty Start Date End Date Jean Munoz MD [address] [place] [phone] PCP - General 12/31/08 Manny Rizzo MD [facility] [place] [phone] 04/20/10 Afia Valle MD [address] [facility] 2 [place] [phone] Care Team Radiation Oncology 07/02/21 Jesi Leong [facility] [address] [place] [phone] Investment Officer 12/24/21 09/20/22 Jesi Leong, [facility] [address] [place] [address] Behavioral Health Investment OfficerRecycling Or Rubbish Collector Care 10/19/22 01/23/24 documented as of this encounter
--- OUTSIDE RECORDS SUMMARY | 2024-06-10 07:09 | XMS_ITS | Encounter Summary ---
Author Organization [facility] Address [address] [place] [address] Care Team Providers Care Popcorn Candy Maker Name Role Phone Jean Munoz MD Primary Care Provider Manny Rizzo MD Unavailable Afia Valle MD Unavailable Reason for Visit * Reason Comments Lung Cancer Encounter Details Date Type Department Care Team (Late st Contact Info) Description 08/20/2021 Documentation Visit [facility] Radiation Oncology - Main [place] [address] [place] [address] Donis Mitchell, RN [address] [place] [address] Social History Tobacco Use Types Packs/Day Years [...] Pressure - - Pulse - - Temperature 36.9 ??C (98.4 ??F) 08/20/2021 1518 EST Respiratory Rate - - Oxygen Saturation - - Inhaled Oxygen Concentration - - Weight - - Height - - Body Mass Index - - documented in this encounter Functional Status Functional [...] as of this encounter Progress Notes * Donis Mitchell RN - 08/20/2021 4197 EST On Treatment Visit Assessment: Liset Viera is currently receiving radiation therapy treatment and being seen today for her weekly on treatment visit. Radiation Thearpy Site: RUL of lung Cumulative RT Dose: 6000 cGy Daily RT Dose: 400 cGy Total RT Planned Dose: 6000cGy Chemotherapy Agent: None I met with Liset Viera after her final radiation therapy treatment to right upper lobe of lung for lung cancer. Liset reports that the only side effects she has gotten from radiation therapy are esophagitis and fatigue. She reports that she feels a lump in my chest with eating. She has moved to a soft diet. She is eating soups and drinking lots of water. She does not like eggs. She was given suggestions for soft foods and encouraged to take nutritional supplements such as Boost Plus if needed. Liset picked up herViscous Lidocaine today and will start it this evening. She knows that the esophagitis will likely get worse over the next 7 days. She knows to call if she needs something further for pain. She is onPrilosec daily. Liset reports that her cough and shortness of breath are baseline. She has had no hemoptysis. She has a loose cough productive of some clear sputum but generally she swallows it because she cannot getit up far enough to expectorate. She does not experience shortness of breath at rest. She does haveDOE. Liset reports that she slept for 12 hours last night. She naps during the day. Plan is for a chest CT on 11/14/2021. She will see Dr. Valle in follow-up on 11/19/2021. Wt Readings from Last 3 Encounters: 07/31/21 84.5 kg (186 lb 3.2 oz) 06/25/21 84.4 kg (186 lb) 06/16/21 88 kg (194 lb) Vitals - Orthostatic 06/23/2021 06/30/2021 07/31/2021 08/06/2021 08/11/2021 08/20/2021 08/20/2021 Orthostatic BP - - - - - 136/86 133/83 Orthostatic Pulse - - - - - 87 96 Blood Pressure 138/85 116/63 127/72 115/72 125/82 - - Device - - - - - - - Cuff Location - Left arm Right arm - - - - Cuff Size - Adult, regular Adult, regular - - - - Pt Position - Sitting Sitting - - Sitting Standing documented in this encounter Plan of Treatment Upcoming Encounters Date Type Department Care Team (Late st Contact Info) Description 06/29/2024 14:15 EDT Office Visit [facility] 3 [place] [address] Jean Munoz MD [address] [place] [address] documented as of this encounter Visit Diagnoses Not on filedocumented in this encounter Care Teams Popcorn Candy Maker Relationship Specialty Start Date End Date Jean Munoz MD [address] [place] [phone] PCP - General 12/31/08 Manny Rizzo MD [address] [place] [phone] 04/20/10 Afia Valle MD 111 [facility] 2 [place] [phone] Care Team Radiation Oncology 07/02/21 documented as of this encounter
--- OUTSIDE RECORDS SUMMARY | 2024-06-10 07:09 | XMS_ITS | Encounter Summary ---
Author Organization [facility] Address [address] [place] [address] Care Team Providers Care Machine Hostler Name Role Phone Jean Munoz MD Primary Care Provider Manny Rizzo MD Unavailable Afia Valle MD Unavailable [phone] Jesi Leong Unavailable [phone] Reason for Referral * Radiology Services (Routine/Next Available) - Authorization Not Required Specialty Diagnoses / Procedures Referred By Contcecille t Referred To Contact Diagnoses Malignant neoplasm of upper lobe, right bronchus or lung (HCC-CMS) Procedures CT CHEST WO CONTRAST Afia Valle MD [address] [facility], [address] [place] [address] [facility] Referral ID Status Reason Start Date Expiration Date Visits Requested Visits Authorized [id number] Authorization Not Required 08/19/2021 1 1 Reason for Visit * Radiology Services (Routine/Next Available) - Authorization Not Required Specialty Diagnoses / Procedures Referred By Contcecille t Referred To Contact Diagnoses Malignant neoplasm of upper lobe, right bronchus or lung (HCC-[facility]) Procedures CT CHEST WO CONTRAST Afia Valle MD [address] [facility], [facility], [address] [place] [address] [facility] Referral ID Status Reason Start Date Expiration Date Visits Requested Visits Authorized [id number] Authorization Not Required 08/19/2021 1 1 Encounter Details Date Type Department Care Team (Latest Contact Info) Description 12/26/2021 9:14 EDT - 12/26/2021 23:59 EDT Hospital [facility] Radiology [facility] - Main [place] [address] [place], [place] [id number] Malignant neoplasm of upper lobe, right bronchus or lung (HCC) ([facility]) Discharge Disposition: Home or Self Care Social [...] 02/05/2022 HYDROcodone-acetaminop hen (NORCO) 7.5-325 mg per tabletIndications:[employer] majo pain syndrome,Chronic use of opiate for therapeutic purpose,Pain medication agreement Take 1 Tablet by mouth every 6 hours as needed for up to 28 days for Pain. For chronic pain. May fill on 01/31/2022. Daily Max: 4 Tablets 112 Tablet 02/02/2022 02/05/2022 HYDROcodone-acetaminop hen (NORCO) 7.5-325 mg per tabletIndications:[employer] majo 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 For chronic pain. May fill on 01/03/2022. Daily Max: 4 Tablets 112 Tablet 01/05/2022 02/05/2022 HYDROcodone-acetaminop hen (NORCO) 7.5-325 mg per tabletIndications:[employer] majo pain syndrome,Chronic use of opiate for therapeutic purpose,Pain medication agreement Take 1 Tablet by mouth every 6 hours as needed for up to 28 days for Pain. For chronic pain. May fill on 12/06/2021. 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 For narcolepsy. May fill on 01/31/2022. 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 For narcolepsy. May fill on 01/03/2022. 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 For narcolepsy. May fill on 12/06/2021. 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 For narcolepsy. May fill on 01/31/2022. 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 For narcolepsy. May fill on 01/03/2022. 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 For narcolepsy. May fill on 12/06/2021. Daily Max: 40 mg 56 Tablet 12/08/2021 04/23/2022 montelukast (SINGULAIR) 10 mg tabletIndications:Nakul rgic rhinitis, [...] NEEDED for nausea 30 Tablet 12/05/2021 03/11/2022 roflumilast (DALIRESP) 500 mcg tabletIndications:[employer] majo obstructive pulmonary disease, unspecified COPD type [...] DOSE FOR MIGRAINE 9 Tablet 12/05/2021 01/02/2022 tamsulosin (FLOMAX) 0.4 mg capsuleIndications:Hes itancy Take 1 Cap by mouth daily. 90 Cap 3 08/30/2019 01/27/2023 zolpidem (AMBIEN) 5 mg tabletIndications:Inso mnia, unspecified type Take 1 Tablet by mouth at bedtime for 28 days. For insomnia. May fill on 01/31/2022. Daily Max: 5 mg 28 Tablet 02/02/2022 02/05/2022 zolpidem (AMBIEN) 5 mg tabletIndications:Inso mnia, unspecified type Take 1 Tablet by mouth at bedtime for 28 days. For insomnia. May fill on 01/03/2022. Daily Max: 5 mg 28 Tablet 01/05/2022 02/05/2022 zolpidem (AMBIEN) 5 mg tabletIndications:Inso mnia, unspecified type Take 1 Tablet by mouth at bedtime as needed for up to 28 days for Sleep. For insomnia. May fill on Wednesday12/06/2021. Daily Max: 5 mg 28 Tablet 12/08/2021 03/30/2022 documented as of this encounter Discharge Disposition Disposition Code Departure Means Destination Home or Self Care documented in this encounter Plan of Treatment Upcoming Encounters Date Type Department Care Team (Late st Contact Info) Description 06/29/2024 14:15 EDT Office Visit [facility] [address] [place] [address] Jean Munoz MD [address] [place] [address] documented as of this encounter Procedures Procedure Name Priority Date/Time Associated Diagnosis Comments CT CHEST WO CONTRAST Routine 12/26/2021 9:41 EDT Malignant neoplasm of upper lobe, right [...] IV contrast. Scans were reviewed on a [employer] workstation for analysis. Exam description: CT of [...] 7 mm right apical nodule (image 123 [id number]), decreased from 14 x 8 mm, with [...] documented in this encounter Care Teams Machine Hostler Relationship Specialty Start Date End Date Jean Munoz MD [address] [place] [address] PCP - General 12/31/08 Manny Rizzo MD [address] [place] [address] 04/20/10 Afia Valle MD [address] [facility] 2 [place] [phone] MD Care Team Radiation Oncology 07/02/21 Jesi Leong, [facility] [address] [place] [address] Termite Renewal Inspector 12/24/21 09/20/22 documented as of this encounter
--- OUTSIDE RECORDS SUMMARY | 2024-06-10 07:09 | XMS_ITS | Encounter Summary ---
Author Organization [facility] Address [address] [place] [address] Care Team Providers Care Support Coordinator Name Role Phone Jean Munoz MD Primary Care Provider Manny Rizzo MD Unavailable Afia Valle MD Unavailable Jesi Leong LINOLEUM LAYER APPRENTICE Unavailable SaloJesi shanks LINOLEUM LAYER APPRENTICE Unavailable [phone] Reason for Visit * Reason Comments Other Encounter Details Date Type Department Care Team (Late st Contact Info) Description 10/02/2021 [facility] [address] [place] [address] Jean Munoz MD [address] [place] [phone] Other Social History Tobacco Use Types [...] BY MOUTH NIGHTLY AT BEDTIME. 90 Tablet 10/03/2021 11/24/2021 documented in this encounter Miscellaneous Notes * Telephone Encounter - Sebastián Velazquez RN - 10/03/2021 0812 EST Requested Prescriptions Pending Prescriptions Disp Refills ??? rOPINIRole (REQUIP) 2 mg tablet [Pharmacy Med Name: rOPINIRole HCl Oral Tablet 2 MG] 90 Tablet 0 Sig: TAKE 1 TABLET BY MOUTH NIGHTLY AT BEDTIME. [id number] - [place], [place] - [address] Confirmed Pharmacy? Yes Patient out of medication? Unknown Last Refill Date: 07/07/21 Refills left? (explain exceptions requiring early refill) No Recent Visits Date Type Provider Dept 04/24/21 Office Visit Jean Munoz MD [facility] Showing recent visits within past 540 days with a meds authorizing provider and meeting all other requirements Future Appointments No visits were found meeting these conditions. Showing future appointments within next 150 days with a meds authorizing provider and meeting all other requirements Future appointment: Other - SEBASTIÁN VELAZQUEZ RN 10/03/2021 8:12 documented in this encounter Plan of Treatment Upcoming Encounters Date Type Department Care Team (Late st Contact Info) Description 06/29/2024 14:15 EDT Office Visit [facility] [address] [place] [address] Jean Munoz MD [address] [place] [phone] documented as of this encounter Visit Diagnoses Diagnosis Restless legs syndrome Restless legs syndrome (RLS) Screening for osteoporosis- [...] 1 TABLET BY MOUTH NIGHTLY AT BEDTIME. 07/07/2021 10/03/2021 documented as of this encounter Additional Health Concerns Infection Onset Date Last Indicated Resolved Time R/O COVID-19 05/15/2022 05/15/2022 05/20/2022 22:1 6 EDT R/O COVID-19 11/14/2022 11/14/2022 11/14/2022 19:1 6 EST documented as of this encounter Care Teams Support Coordinator Relationship Specialty Start Date End Date Jean Munoz MD [address] [place] [phone] PCP - General 12/31/08 Manny Rizzo MD [address] [place] [address] 04/20/10 Afia Valle MD [address] [place] [address] [address] [place] [phone] Care Team Radiation Oncology 07/02/21 Jesi Leong LINOLEUM LAYER APPRENTICE [address] [place] [phone] Camp Assistant 12/24/21 09/20/22 Jesi Leong LICSW [address] [place] [phone] Behavioral Health Camp AssistantNipple Maker Care 10/19/22 01/23/24 documented as of this encounter
--- OUTSIDE RECORDS SUMMARY | 2024-06-10 07:09 | XMS_ITS | Encounter Summary ---
Author Organization [facility] Address [address] [place] [address] Care Team Providers Care Blacksmith Farm Name Role Phone Jean Munoz MD Primary Care Provider Manny Rizzo MD Unavailable Afia Valle MD Unavailable Reason for Visit * Reason Comments Chronic Pain Encounter Details Date Type Department Care Team (Late st Contact Info) Description 08/26/2021 16:30 EST Telemedicine [facility] [address] [place] [address] Jean Munoz MD [address] [place] [phone] Chronic pain syndrome (Primary Dx); Chronic use of opiate for therapeutic purpose; Pain medication agreement; Primary narcolepsy without cataplexy; Primary cancer of right upper lobe of lung (HCC-CMS) (HCC) (HCC-CMS); Allergic rhinitis, unspecified seasonality, unspecified trigger; Screen for colon cancer; Insomnia, unspecified type Social History Tobacco Use Types Packs/Day Years [...] End Da te zolpidem (AMBIEN) 5 mg tabletIndications:Inso mnia, unspecified type Take 1 Tablet by mouth at bedtime as needed for up to 28 days for Sleep. May fill Wednesday11/08/2021 Daily Max: 5 mg 28 Tablet 11/10/2021 11/24/2021 zolpidem (AMBIEN) 5 mg tabletIndications:Inso mnia, unspecified type Take 1 Tablet by mouth at bedtime for 28 days. May fill Wednesday10/11/2021 Daily Max: 5 mg 28 Tablet 10/13/2021 11/24/2021 zolpidem (AMBIEN) 5 mg tabletIndications:Inso mnia, unspecified type Take 1 Tablet by mouth at bedtime for 28 days. May fill Wednesday09/12/2022 Daily Max: 5 mg 28 Tablet 09/15/2021 11/24/2021 methylphenidate HCl (RITALIN;METHYLIN) 20 mg tabletIndications:Prim sheila narcolepsy without cataplexy Take 2 Tablets by mouth daily for 28 days. For narcolepsy Daily Max: 40 mg 56 Tablet 09/15/2021 11/24/2021 methylphenidate HCl (RITALIN;METHYLIN) 20 mg tabletIndications:Prim sheila narcolepsy without cataplexy Take 2 Tablets by mouth daily for 28 days. For narcolepsy Daily Max: 40 mg 56 Tablet 10/13/2021 11/24/2021 methylphenidate HCl (RITALIN;METHYLIN) 20 mg tabletIndications:Prim sheila narcolepsy without cataplexy Take 2 Tablets by mouth daily for 28 days. For narcolepsy Daily Max: 40 mg 56 Tablet 11/10/2021 11/24/2021 methylphenidate HCl (RITALIN;METHYLIN) 10 mg tabletIndications:Prim sheila narcolepsy without cataplexy Take 1 Tablet by mouth daily for 28 days. For narcolepsy Daily Max: 10 mg 28 Tablet 09/15/2021 11/24/2021 methylphenidate HCl (RITALIN;METHYLIN) 10 mg tabletIndications:Prim sheila narcolepsy without cataplexy Take 1 Tablet by mouth daily for 28 days. For narcolepsy Daily Max: 10 mg 28 Tablet 10/13/2021 11/24/2021 methylphenidate HCl (RITALIN;METHYLIN) 10 mg tabletIndications:Prim sheila narcolepsy without cataplexy Take 1 Tablet by mouth daily for 28 days. For narcolepsy Daily Max: 10 mg 28 Tablet 11/10/2021 11/24/2021 HYDROcodone-acetaminop hen (NORCO) 7.5-325 mg per tabletIndications:Adult Nurse Practitioner majo 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 Chronic pain Daily Max: 4 Tablets 112 Tablet 09/15/2021 11/24/2021 HYDROcodone-acetaminop hen (NORCO) 7.5-325 mg per tabletIndications:Adult Nurse Practitioner majo pain syndrome,Chronic use of opiate for therapeutic purpose,Pain medication agreement Take 1 Tablet by mouth every 6 hours as needed for up to 8 days for Pain. For chronic pain Daily Max: 4 Tablets 20 Tablet 10/13/2021 10/13/2021 HYDROcodone-acetaminop hen (NORCO) 7.5-325 mg per tabletIndications:Adult Nurse Practitioner majo pain syndrome,Chronic use of opiate for therapeutic purpose,Pain medication agreement Take 1 Tablet by mouth every 6 hours as needed for up to 28 days for Pain. Daily Max: 4 Tablets 112 Tablet 11/10/2021 11/24/2021 fexofenadine (JUDITH) 180 mg tabletIndications:Nakul rgic rhinitis, unspecified seasonality, unspecified trigger TAKE 1 TABLET BY MOUTH EVERY DAY for allergies 90 Tablet 4 08/26/2021 07/06/2022 documented in this encounter Progress Notes * Jean Munoz MD - 08/26/2021 1630 EST Primary Care Telephone Visit Assessment & Plan Liset was seen today for chronic pain. Diagnoses and all orders for this visit: Chronic pain syndrome Chronic use of opiate for therapeutic purpose Pain medication agreement - HYDROcodone-acetaminophen (NORCO) 7.5-325 mg per tablet; Take 1 Tablet by mouth every 6 hours as needed for up to 28 days for Pain. Daily Max: 4 Tablets - HYDROcodone-acetaminophen (NORCO) 7.5-325 mg per tablet; Take 1 Tablet by mouth every 6 hours as needed for up to 8 days for Pain. For chronic pain Daily Max: 4 Tablets - HYDROcodone-acetaminophen (NORCO) 7.5-325 mg per tablet; Take 1 Tablet by mouth every 6 hours for28 days. Chronic pain Daily Max: 4 Tablets Stable Renew hydrocodone/APAP Recheck 12 weeks. Primary narcolepsy without cataplexy - methylphenidate HCl (RITALIN;METHYLIN) 10 mg tablet; Take 1 Tablet by mouth daily for 28 days. For narcolepsy Daily Max: 10 mg - methylphenidate HCl (RITALIN;METHYLIN) 10 mg tablet; Take 1 Tablet by mouth daily for 28 days. For narcolepsy Daily Max: 10 mg - methylphenidate HCl (RITALIN;METHYLIN) 10 mg tablet; Take 1 Tablet by mouth daily for 28 days. For narcolepsy Daily Max: 10 mg - methylphenidate HCl (RITALIN;METHYLIN) 20 mg tablet; Take 2 Tablets by mouth daily for 28 days. For narcolepsy Daily Max: 40 mg - methylphenidate HCl (RITALIN;METHYLIN) 20 mg tablet; Take 2 Tablets by mouth daily for 28 days. For narcolepsy Daily Max: 40 mg - methylphenidate HCl (RITALIN;METHYLIN) 20 mg tablet; Take 2 Tablets by mouth daily for 28 days. For narcolepsy Daily Max: 40 mg Stable, renew Ritalin. Primary cancer of right upper lobe of lung (HCC-CMS) (HCC) Follow-up per radiation oncology. Allergic rhinitis, unspecified seasonality, unspecified trigger - fexofenadine (JUDITH) 180 mg tablet; TAKE 1 TABLET BY MOUTH EVERY DAY for allergies Screen for colon cancer Due for colonoscopy but will defer this for now due to ongoing treatment for her lung cancer. Chronic insomnia - zolpidem (AMBIEN) 5 mg tablet; Take 1 Tablet by mouth at bedtime for 28 days. January fill Wednesday09/12/2022 Daily Max: 5 mg - zolpidem (AMBIEN) 5 mg tablet; Take 1 Tablet by mouth at bedtime for 28 days. May fill Wednesday10/11/2021 Daily Max: 5 mg - zolpidem (AMBIEN) 5 mg tablet; Take 1 Tablet by mouth at bedtime as needed for up to 28 days for Sleep. May fill Wednesday11/08/2021 Daily Max: 5 mg Stable, renew Ambien. Return in about 12 weeks (around 11/18/2021) for SERA phone. Patient education was direct. Barriers were assessed and addressed as needed. Time of phone call: 15 minutes Kalie Hutchins is a 60 y.o. female presenting with Chronic Pain HPI Scheduled for video follow-up of chronic pain due to chronic back pain, knee pain, fibromyalgia, chronic arthritis. Unable to do video so this was done by telephone instead. Has COPD followed by pulmonology. Also has been diagnosed with lung cancer recently. Undergoing radiation therapy with Dr. Valle. Follow-up CT scan pending. Admits to feeling tired, sleeping a lot. Notes that she has had some trouble swallowing recently but has been using medication that helps for this. Did have COVIDbooster and flu shot on same day recently. Is on chronic opiate therapy for chronic pain along withAmbien for insomnia and Ritalin for narcolepsy, previously followed by sleep clinic. Former smoker who has quit. VPMS reviewed. Data reviewed this visit: problem list/past medical [...] patient???s medical or mental health care Objective VS not obtained Physical Exam Alert, NAD on phone * Kaitlyn Montero LPN - 08/26/2021 1630 EST The [place] [facility] Monitoring System query has been completed Zolpidem 5 mg: Filled: 08/17/21 Quantity: 28 abs for 28 days Methylphenidate 10 mg: Filled: 08/16/21 Quantity: 28 tabs for 28 days Methylphenidate 20 mg: Filled: 08/16/21 Quantity: 28 tabs for 28 days Hydrocodone-Acetaminophen 7.5-325 mg: Filled: 08/16/21 Quantity: 112 tabs for 28 days KAITLYN MONTERO LPN * Kaitlyn Montero LPN - 08/26/2021 1630 EST The concept of ???Telemedicine?? has [...] in patient???s medical or mental health care. KAITLYN MONTERO LPN documented in this encounter Plan of Treatment Upcoming Encounters Date Type Department Care Team (Late st Contact Info) Description 06/29/2024 14:15 EDT Office Visit [facility] [address] [place], [place] [phone] Jean Munoz MD [address] [place] [phone] documented as of this encounter Visit Diagnoses Diagnosis Chronic pain syndrome- Primary Chronic use of opiate for therapeutic purpose Pain medication agreement Encounter for long-term (current) use of other medications Primary narcolepsy without cataplexy Primary cancer of right upper lobe of lung (HCC-CMS) Allergic rhinitis, unspecified seasonality, unspecified trigger Screen for colon cancer Special screening for malignant neoplasms, colon Insomnia, unspecified type Screening for osteoporosis- Primary [...] Discontinue Reason Start Date End Da te lancetsIndications:Impa ired glucose tolerance Brand:one touch ultra, tests 2 times daily 07/09/2021 08/25/2021 fexofenadine (JUDITH) 180 mg tabletIndications:Aller gic rhinitis, unspecified seasonality, unspecified trigger TAKE 1 TABLET BY MOUTH EVERY DAY for allergies Reorder 09/10/2020 08/26/2021 methylphenidate HCl (RITALIN;METHYLIN) 10 mg tabletIndications:Prima ry narcolepsy without cataplexy Take 1 Tablet by mouth daily for 28 days. For narcolepsy Daily Max: 10 mg Reorder 06/23/2021 08/26/2021 methylphenidate HCl (RITALIN;METHYLIN) 20 mg tabletIndications:Prima ry narcolepsy without cataplexy Take 2 Tablets by mouth daily for 28 days. For narcolepsy Daily Max: 40 mg Reorder 06/23/2021 08/26/2021 HYDROcodone-acetaminoph en (NORCO) 7.5-325 mg per tabletIndications:Chron ic 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 Chronic pain Daily Max: 4 Tablets Reorder 07/21/2021 08/26/2021 methylphenidate HCl (RITALIN;METHYLIN) 10 mg tabletIndications:Prima ry narcolepsy without cataplexy Take 1 Tablet by mouth daily for 28 days. For narcolepsy Daily Max: 10 mg Reorder 08/18/2021 08/26/2021 methylphenidate HCl (RITALIN;METHYLIN) 10 mg tabletIndications:Prima ry narcolepsy without cataplexy Take 1 Tablet by mouth daily for 28 days. For narcolepsy Daily Max: 10 mg Reorder 07/21/2021 08/26/2021 methylphenidate HCl (RITALIN;METHYLIN) 20 mg tabletIndications:Prima ry narcolepsy without cataplexy Take 2 Tablets by mouth daily for 28 days. For narcolepsy Daily Max: 40 mg Reorder 08/18/2021 08/26/2021 methylphenidate HCl (RITALIN;METHYLIN) 20 mg tabletIndications:Prima ry narcolepsy without cataplexy Take 2 Tablets by mouth daily for 28 days. For narcolepsy Daily Max: 40 mg Reorder 07/21/2021 08/26/2021 HYDROcodone-acetaminoph en (NORCO) 7.5-325 mg per tabletIndications:Chron ic pain syndrome,Chronic use of opiate for therapeutic purpose,Pain medication agreement Take 1 Tablet by mouth every 6 hours as needed for up to 8 days for Pain. For chronic pain Daily Max: 4 Tablets Reorder 07/13/2021 08/26/2021 HYDROcodone-acetaminoph en (NORCO) 7.5-325 mg per tabletIndications:Chron ic pain syndrome,Chronic use of opiate for therapeutic purpose,Pain medication agreement Take 1 Tablet by mouth every 6 hours as needed for up to 28 days for Pain. Daily Max: 4 Tablets Reorder 08/18/2021 08/26/2021 zolpidem (AMBIEN) 5 mg tabletIndications:Insom yesi, unspecified type Take 1 Tablet by mouth at bedtime as needed for up to 6 days for Sleep. Daily Max: 5 mg Therapy completed 08/12/2021 08/26/2021 zolpidem (AMBIEN) 5 mg tablet Take 1 Tablet by mouth at bedtime as needed for up to 28 days for Sleep. January08/16/21 Daily Max: 5 mg Reorder 08/18/2021 08/26/2021 documented as of this encounter Historical Medications * This list may reflect changes made after this encounter. Medication Sig Dispensed Refills Start Date End Date ONETOUCH DELICA PLUS LANCET 33 gauge misc 07/10/2021 10/06/2023 added in this encounter Care Teams [employer] Relationship Specialty Start Date End Date Jean Munoz MD [address] [place] [phone] PCP - General 12/31/08 Manny Rizzo MD [address] [place] [phone] 04/20/10 Afia Valle MD [address] [facility], [facility] [address] [place] [phone] MD Care Team Radiation Oncology 07/02/21 documented as of this encounter
--- OUTSIDE RECORDS SUMMARY | 2024-06-10 07:09 | XMS_ITS | Encounter Summary ---
Author Organization [facility] Address [address] [place] [address] Care Team Providers Care Manager New Product Name Role Phone Jean Munoz MD Primary Care Provider Manny Rizzo MD Unavailable Afia Valle MD Unavailable [phone] Jesi Leong Unavailable Reason for Visit * Reason Onset Date Comments Prior Auth, Medication 01/05/2022 Encounter Details Date Type Department Care Team (Late st Contact Info) Description 01/05/[address] [facility] [address] [place] [address] Jean Munoz MD [address] [place] [address] Prior Auth, Medication Social History [...] Telephone Encounter - Kaitlyn Montero LPN - 01/05/2022 1413 EDT Medication: Fexofenadine 180 mg Insurance Co: [place] Approval # (if applicable): [id number] Approval dates: 01/05/22-01/05/23 Name of Pharmacy notified: [facility] KAITLYN MONTERO LPN * Telephone Encounter - Kaitlyn Montero LPN - 01/05/2022 0850 EDT PA sent to insurance ([place] Medicaid) for Fexofenadine. Will wait for response. KAITLYN MONTERO LPN documented in this encounter Plan of Treatment Upcoming Encounters Date Type Department Care Team (Late st Contact Info) Description 06/29/2024 14:15 EDT Office Visit [facility] [address] [place] [address] Jean Munoz MD [address] [place] [phone] documented as of this encounter Visit Diagnoses Not on filedocumented in this encounter Care Teams Manager New Product Relationship Specialty Start Date End Date Jean Munoz MD [address] [place] [phone] PCP - General 12/31/08 Manny Rizzo MD [address] [place] [phone] 04/20/10 Afia Valle MD [address] [place] [address] 2 [place] [phone] Care Team Radiation Oncology 07/02/21 Jesi Loeng, [facility] [address] [place] [phone] Truck Bracer 12/24/21 09/20/22 documented as of this encounter
--- OUTSIDE RECORDS SUMMARY | 2024-06-10 07:09 | XMS_ITS | Encounter Summary ---
Author Organization [facility] Address [address] [place] [address] Care Team Providers Care Founder And Chief Technical Officer Name Role Phone Jean Munoz MD Primary Care Provider Manny Rizzo MD Unavailable Afia Valle MD Unavailable Reason for Visit * Reason Comments Other Encounter Details Date Type Department Care Team (Late st Contact Info) Description 12/01/2021 Refill [facility] [address] [place] [address] Jean Munoz MD [address] [place] [phone] Other Social History Tobacco Use Types [...] Encounter - Kymberly Jones RN - 12/02/2021 1401 EDT Next script available to be filled on 12/06 documented in this encounter Plan of Treatment Upcoming Encounters Date Type Department Care Team (Late st Contact Info) Description 06/29/2024 14:15 EDT Office Visit [facility] 3 [place] [address] Jean Munoz MD [address] [place] [phone] documented as of this encounter Visit [...] colon documented in this encounter Care Teams Founder And Chief Technical Officer Relationship Specialty Start Date End Date Jean Munoz MD [address] [place] [address] PCP - General 12/31/08 Manny Rizzo MD [employer] [place] [phone] 04/20/10 Afia Valle MD [address] [place] [address] 2 [place] [phone] Care Team Radiation Oncology 07/02/21 documented as of this encounter
--- OUTSIDE RECORDS SUMMARY | 2024-06-10 07:10 | XMS_ITS | Encounter Summary ---
Author Organization [facility] Address [address] [place] [address] Care Team Providers Care Airway Traffic Controller Name Role Phone Jean Munoz MD Primary Care Provider Manny Rizzo MD Unavailable Afia Valle MD Unavailable [phone] Reason for Visit * Reason Comments Lung Cancer Encounter Details Date Type Department Care Team (Late st Contact Info) Description 08/06/2021 Radiation Therapy Visit [facility] Radiation Oncology - Main [place] [address] [place] [address] Deidre Hall, RN [address] [place] [address] Malignant neoplasm of upper lobe, right bronchus [...] Sign Reading Time Taken Comments Blood Pressure 115/72 08/06/2021 1058 EST Pulse 78 08/06/2021 1058 EST Temperature 36.5 ??C (97.7 ??F) 08/06/2021 1058 EST Respiratory Rate 18 08/06/2021 1058 EST Oxygen Saturation 98% 08/06/2021 1058 EST Inhaled Oxygen Concentration - - Weight - [...] as of this encounter Progress Notes * Deidre Hall, RN - 08/06/2021 1058 EST Nursing On Treatment Visit Assessment: Liset Viera is currently receiving radiation therapy treatment and is being seen today for their weekly on treatment visit. Assessment: DEIDRE HALL RN, 08/06/21 Radiation Therapy Site: [facility] Cumulative RT Dose: 2800 cGy Daily RT Dose: 400 cGy Total RT Planned Dose: 6000 cGy Chemotherapy Agent: none Liset Viera reports fatigue and tiring more easily. She states she has a slight increase in her dry cough and SOB/ALEJANDRE. She denies any pain but does say that her right upper chest skin feels like I have a sunburn. No skin reaction, she is using Aquaphor daily. She is sleeping well and has a good appetite. Plan: Continue radiation therapy as planned. documented in this encounter Plan of Treatment Upcoming Encounters Date Type Department Care Team (Late st Contact Info) Description 06/29/2024 14:15 EDT Office Visit [facility] 3 [place] [address] Jean Munoz MD 3 [place] [address] documented as of this encounter Visit Diagnoses Diagnosis Malignant neoplasm of upper lobe, right bronchus or lung ([facility])- Primary Screening for osteoporosis- Primary Special screening for osteoporosis Primary narcolepsy without cataplexy Chronic pain syndrome Chronic low back pain Lumbago Chronic use of opiate for therapeutic purpose Pain medication agreement Encounter for long-term (current) use of other medications Screen for colon cancer Special screening for malignant neoplasms, colon documented in this encounter Care Teams Airway Traffic Controller Relationship Specialty Start Date End Date Jean Munoz MD 3 [place] [phone] PCP - General 12/31/08 Manny Rizzo MD [address] [place] [phone] 04/20/10 Afia Valle MD [address] [place], [address] [place] [address] Care Team Radiation Oncology 07/02/21 documented as of this encounter
--- OUTSIDE RECORDS SUMMARY | 2024-06-10 07:10 | XMS_ITS | Encounter Summary ---
Author Organization [facility] Address [address] [place] [address] Care Team Providers Care Engagement Director Name Role Phone Jean Munoz MD Primary Care Provider Manny Rizzo MD Unavailable Afia Valle MD Unavailable Encounter Details Date Type Department Care Team (Latest Contact Info) Description 08/18/2021 10:07 EST - 08/18/2021 23:59 EST Hospital Encounter [facility] Radiation Oncology - Main [place] [address] [place], [place] [phone] [facility] Resource, Platform Discharge Disposition: Home or Self [...] stripsIndications:Arpita richter glucose tolerance 1 Strip [place] [facility] [place]; combo route) route 2 times daily. [...] 02/05/2022 HYDROcodone-acetaminop hen (NORCO) 7.5-325 mg per tabletIndications:Bromination Equipment Operator majo 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 Chronic pain Daily Max: 4 Tablets 112 Tablet 07/21/2021 08/26/2021 HYDROcodone-acetaminop hen (NORCO) 7.5-325 mg per tabletIndications:Bromination Equipment Operator majo pain syndrome,Chronic use of opiate for therapeutic purpose,Pain medication agreement Take 1 Tablet by mouth every 6 hours as needed for up to 8 days for Pain. For chronic pain Daily Max: 4 Tablets 20 Tablet 07/13/2021 08/26/2021 HYDROcodone-acetaminop hen (NORCO) 7.5-325 mg per tabletIndications:Bromination Equipment Operator majo pain syndrome,Chronic use of opiate for [...] mg base)/3 mL nebulizer solutionIndications:Pa nlobular emphysema ([facility]-CMS) Take 3 mL by nebulization every 4 hours as needed for Wheezing. 3 mL 3 08/30/2019 11/23/2022 lancetsIndications:Imp aired glucose tolerance Brand:one touch Cempra, tests 2 times daily 100 Each 2 07/09/2021 08/25/2021 levalbuterol (XOPENEX HFA) 45 mcg/actuation inhalerIndications:Jarquin lobular emphysema (HCC-CMS) INHALE TWO PUFFS BY MOUTH EVERY FOUR HOURS NEEDED for wheezing as directed. for shortness of breath 45 g 3 05/29/2021 06/30/2022 methocarbamoL (ROBAXIN) 500 mg tabletIndications:Bromination Equipment Operator majo pain syndrome take 2 tablets by [...] Tablet 06/22/2021 10/09/2021 roflumilast (DALIRESP) 500 mcg tabletIndications:Bromination Equipment Operator majo obstructive pulmonary disease, unspecified COPD type [...] Info) Description 06/29/2024 14:15 EDT Office Visit [address] [phone] Jean Munoz MD 3 [place] [address] documented as of this encounter Visit Diagnoses Not on filedocumented in this encounter Care Teams Engagement Director Relationship Specialty Start Date End Date Jean Munoz MD [address] [place] [address] PCP - General 12/31/08 [place] [address] [place] [phone] 04/20/10 Afia Valle MD [address] [facility], [address] [place] [phone] Care Team Radiation Oncology 07/02/21 documented as of this encounter
--- OUTSIDE RECORDS SUMMARY | 2024-06-10 07:10 | XMS_ITS | Encounter Summary ---
Author Organization [facility] Address [address] [place] [address] Care Team Providers Care Pattern Generator Operator Name Role Phone Jean Munoz MD Primary Care Provider Manny Rizzo MD Unavailable Afia Valle MD Unavailable Encounter Details Date Type Department Care Team (Latest Contact Info) Description 08/05/2021 11:15 EST - 08/05/2021 23:59 EST Hospital Encounter [facility] Radiation Oncology - Main [place] [address] [place], [place] [phone] [facility] Resource, Platform Discharge Disposition: Home or Self [...] stripsIndications:Arpita richter glucose tolerance 1 [place] [facility] [place]non-drug; [...] 02/05/2022 HYDROcodone-acetaminop hen (NORCO) 7.5-325 mg per tabletIndications: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 Chronic pain Daily Max: 4 Tablets 112 Tablet 07/21/2021 08/26/2021 HYDROcodone-acetaminop hen (NORCO) 7.5-325 mg per tabletIndications:Transportation Equipment Painter majo pain syndrome,Chronic use of opiate for therapeutic purpose,Pain medication agreement Take 1 Tablet by mouth every 6 hours as needed for up to 8 days for Pain. 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 3 mL 3 08/30/2019 11/23/2022 lancetsIndications:Imp aired glucose tolerance Brand:one touch 'Rock[employer], tests 2 times daily 100 Each 2 07/09/2021 08/25/2021 levalbuterol (XOPENEX HFA) 45 mcg/actuation inhalerIndications:Jarquin lobular emphysema (HCC-CMS) INHALE TWO PUFFS BY MOUTH EVERY FOUR HOURS NEEDED for wheezing as directed. 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 take 2 tablets by [...] Tablet 06/22/2021 10/09/2021 roflumilast (DALIRESP) 500 mcg tabletIndications:Transportation Equipment Painter majo obstructive pulmonary disease, unspecified COPD type [...] (AMBIEN) 5 mg tabletIndications:Inso mnia, unspecified type TAKE ONE TABLET BY MOUTH NIGHTLY AT BEDTIME NEEDED *limit 1 tab daily 28 Tablet 07/15/2021 08/12/2021 documented as of this encounter Discharge Disposition Disposition Code Departure Means Destination Home or Self Care documented in this encounter Plan of Treatment Upcoming Encounters Date Type Department Care Team (Late st Contact Info) Description 06/29/2024 14:15 EDT Office Visit [facility] 3 [place] [address] Jean Munoz MD [address] [place] [phone] documented as of this encounter Visit Diagnoses Not on filedocumented in this encounter Care Teams Pattern Generator Operator Relationship Specialty Start Date End Date Jean Munoz MD [address] [place] [address] PCP - General 12/31/08 Manny Rizzo MD [address] [place] [phone] 04/20/10 Afia Valle MD 111 [facility] 2 [place] [address] Care Team Radiation Oncology 07/02/21 documented as of this encounter
--- OUTSIDE RECORDS SUMMARY | 2024-06-10 07:10 | XMS_ITS | Encounter Summary ---
Author Organization [facility] Address [address] [place] [address] Care Team Providers Care Community Board Member Name Role Phone Jean Munoz MD Primary Care Provider Manny Rizzo MD Unavailable Afia Valel MD Unavailable Encounter Details Date Type Department Care Team (Late st Contact Info) Description 07/31/2021 Documentation Visit [facility] Radiation Oncology - Main [place] [address] [place] [address] Toan Russ, CHRIS Social History Tobacco Use Types Packs/Day Years [...] Sign Reading Time Taken Comments Blood Pressure 127/72 07/31/2021 1038 EST Pulse - - Temperature - - Respiratory Rate - - Oxygen Saturation - - Inhaled Oxygen Concentration - - Weight 84.5 kg (186 lb 3.2 oz) 07/31/[address] Height - - Body Mass Index 31.96 06/05/2021 0900 EDT documented in this encounter Functional Status [...] as of this encounter Progress Notes * Toan Russ RN - 07/31/2021 1038 EST Nursing On Treatment Visit Assessment: Liset Viera is currently receiving radiation therapy treatment and is being seen today for their weekly on treatment visit. Assessment: TOAN RUSS RN, 07/31/21 Radiation Therapy Site: [facility] Cumulative RT Dose: 1200 cGy Daily RT Dose: 400 cGy Total RT Planned Dose: 6000 cGy Chemotherapy Agent: No chemo Liset Viera reports she's feeling well today. She denies any new pain, sob, cough, difficulty breathing. Her skin in intact without redness or irritation. She has not been moisturizing. She reports he appetite is lousy. She eats a sandwich a day if she eats at all per her report. She denies difficulty swallowing or pain while swallowing. Just states she's not hungry. I suggested supplemental shakes to get some good calories in such as boost or ensure. She responded I cant afford that stuff. Her last recorded weight was from the middle of June and is unchanged today, but does bear watching. Liset has no further questions or concerns today. Wt Readings from Last 3 Encounters: 07/31/21 84.5 kg (186 lb 3.2 oz) 06/25/21 84.4 kg (186 lb) 06/16/21 88 kg (194 lb) Vitals - Orthostatic 06/30/2021 07/31/2021 Blood Pressure 116/63 127/72 Device - - Cuff Location Left arm Right arm Cuff Size Adult, regular Adult, regular Pt Position Sitting Sitting Plan: Continue radiation therapy as planned. documented in this encounter Plan of Treatment Upcoming Encounters Date Type Department Care Team (Late st Contact Info) Description 06/29/2024 14:15 EDT Office Visit [address] [address] Jean Munoz MD 3 [place] [address] documented as of this encounter Visit Diagnoses Not on filedocumented in this encounter Care Teams Community Board Member Relationship Specialty Start Date End Date Jean Munoz MD [address] [place] [address] PCP - General 12/31/08 Manny Rizzo MD [address] [place] [phone] 04/20/10 Afia Valle MD [address] [facility], Level [address] [place] [phone] Care Team Radiation Oncology 07/02/21 documented as of this encounter
--- OUTSIDE RECORDS SUMMARY | 2024-06-10 07:10 | XMS_ITS | Encounter Summary ---
Author Organization [facility] Address [address] [place] [address] Care Team Providers Care Rod Bending Machine Operator Name Role Phone Jean Munoz MD Primary Care Provider Manny Rizzo MD Unavailable Afia Valle MD Unavailable Encounter Details Date Type Department Care Team (Latest Contact Info) Description 08/13/2021 10:15 EST - 08/13/2021 23:59 EST Hospital Encounter [facility] Radiation Oncology - Main [place] [address] [place], [place] [phone] [facility] Resource, Platform Discharge Disposition: Home or Self [...] stripsIndications:Arpita richter glucose tolerance 1 Strip by [facility] (non-drug; combo route) route [...] 02/05/2022 HYDROcodone-acetaminop hen (NORCO) 7.5-325 mg per tabletIndications: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 3 mL 3 08/30/2019 11/23/2022 lancetsIndications:Imp aired glucose tolerance Brand:one touch Lell[place], tests 2 times daily 100 Each 2 07/09/2021 08/25/2021 levalbuterol (XOPENEX HFA) 45 mcg/actuation inhalerIndications:Jarquin lobular emphysema (HCC-CMS) INHALE TWO PUFFS BY MOUTH EVERY FOUR HOURS NEEDED for wheezing as directed. 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 take 2 tablets by [...] Tablet 06/22/2021 10/09/2021 roflumilast (DALIRESP) 500 mcg tabletIndications:Blood Bank Calendar Control Clerk majo obstructive pulmonary disease, unspecified COPD type [...] Info) Description 06/29/2024 14:15 EDT Office Visit [address] [phone] Jean Munoz MD [address] [place] [address] documented as of this encounter Visit Diagnoses Not on filedocumented in this encounter Care Teams Rod Bending Machine Operator Relationship Specialty Start Date End Date Jean Munoz MD [address] [place] [address] PCP - General 12/31/08 [place] [address] [place] [phone] 04/20/10 Afia Valle MD 111 [facility], [address] [place] [phone] Care Team Radiation Oncology 07/02/21 documented as of this encounter
--- OUTSIDE RECORDS SUMMARY | 2024-06-10 07:10 | XMS_ITS | Encounter Summary ---
Author Organization [facility] Address [address] [place] [address] Care Team Providers Care Dock Superintendent Name Role Phone Jean Munoz MD Primary Care Provider Manny Rizzo MD Unavailable Afia Valle MD Unavailable [phone] Reason for Visit * Reason Onset Date Comments Other 08/12/2021 Radiation Therap On Treatment Visit Encounter Details Date Type Department Care Team (Late st Contact Info) Description 08/12/2021 Radiation Therapy Visit [facility] Radiation Oncology - [address] [address] Afia Valle MD [address] [place] [address], [address] [place] [address] Malignant neoplasm of upper lobe, [...] Progress Notes * Afia Valle MD - 08/12/2021 1034 EST On Treatment Visit Note Date/Time: 08/12/21 10:34 Diagnosis: The encounter diagnosis was Malignant neoplasm of upper lobe, right bronchus or lung (HCC). Site: [facility] Daily RT Dose: 400 cGy Current RT Dose: 3600 cGy Planned RT Dose: 6000 cGy Concurrent chemo: None Physician Assessment Patient tolerance: Continues to endorse fatigue. She also has noticed that some of her larger pillsare more difficult to swallow. However, she denies odynphagia and her diet is unchanged, still tolerating solid foods without problems. Pain scale: 0/10 Physical Exam ECOG Performance status: 0: Fully active, able to carry on all pre-disease performance without restriction Gen: well-appearing, no acute distress Skin: no reaction. Neuro: AO, grossly non-focal Data Review: I have reviewed the patient's pertinent vitals signs and labs as resulted in the EMR. Assessment: Stable course with expected RT side effects. Grade 1 fatigue ? Early esophagitis Plan: Continue RT. Will continue to monitor for esophagitis. Patient takes Prilosec. A review of treatment set-up, dosimetry, and IGRT images has been performed.3 documented in this encounter Plan of Treatment Upcoming Encounters Date Type Department Care Team (Late st Contact Info) Description 06/29/2024 14:15 EDT Office Visit [facility] 3 [place] [address] Jean Munoz MD [address] [place] [phone] documented as of this encounter Visit Diagnoses [...] colon documented in this encounter Care Teams Dock Superintendent Relationship Specialty Start Date End Date Jean Munoz MD [address] [place] [phone] PCP - General 12/31/08 Manny Rizzo MD [address] [place] [phone] 04/20/10 Afia Valle MD [address] [place] [address] [address] [place] [phone] Care Team Radiation Oncology 07/02/21 documented as of this encounter
--- OUTSIDE RECORDS SUMMARY | 2024-06-10 07:10 | XMS_ITS | Encounter Summary ---
Author Organization [facility] Address [address] [place] [address] Care Team Providers Care District Claims Manager Name Role Phone Jean Munoz MD Primary Care Provider Manny Rizzo MD Unavailable Afia Valle MD Unavailable Encounter Details Date Type Department Care Team (Latest Contact Info) Description 08/15/2021 10:03 EST - 08/15/2021 23:59 EST Hospital Encounter [facility] Radiation Oncology - Main [place] [address] [place], [place] [id number] [facility] Resource, Platform Discharge Disposition: Home or Self [...] stripsIndications:Arpita richter glucose tolerance 1 Strip by [facility] (non-drug; combo route) route 2 times daily. 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 3 mL 3 08/30/2019 11/23/2022 lancetsIndications:Imp aired glucose tolerance Brand:one touch [employer], tests 2 times daily 100 Each 2 07/09/2021 08/25/2021 levalbuterol (XOPENEX HFA) 45 mcg/actuation inhalerIndications:Jarquin lobular emphysema (HCC-CMS) INHALE TWO PUFFS BY MOUTH EVERY FOUR HOURS NEEDED for wheezing as directed. 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 take 2 tablets by [...] Tablet 06/22/2021 10/09/2021 roflumilast (DALIRESP) 500 mcg tabletIndications:Senior Salesforce Developer majo obstructive pulmonary disease, unspecified COPD type [...] Description 06/29/2024 14:15 EDT Office Visit [address] [phone] Jean Munoz MD [address] [place] [address] documented as of this encounter Visit Diagnoses Not on filedocumented in this encounter Care Teams District Claims Manager Relationship Specialty Start Date End Date Jean Munoz MD [address] [place] [address] PCP - General 12/31/08 [place] [address] [place] [phone] 04/20/10 Afia Valle MD [address] [facility], [address] [place] [phone] Care Team Radiation Oncology 07/02/21 documented as of this encounter
--- OUTSIDE RECORDS SUMMARY | 2024-06-10 07:10 | XMS_ITS | Encounter Summary ---
Author Organization [facility] Address [address] [place] [address] Care Team Providers Care Underground Miner Name Role Phone Jean Munoz MD Primary Care Provider Manny Rizzo MD Unavailable Afia Valle MD Unavailable [phone] Encounter Details Date Type Department Care Team (Latest Contact Info) Description 08/19/2021 11:00 EST - 08/19/2021 23:59 [email or web address] Hospital Encounter [facility] Radiation Oncology - Main [place] [address] [place], [place] [phone] [facility] Resource, Platform Discharge Disposition: Home or Self [...] stripsIndications:Arpita richter glucose tolerance 1 Strip by [facility] (non-drug; combo route) route 2 times daily. 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 Chronic pain Daily Max: 4 Tablets 112 Tablet 07/21/2021 08/26/2021 HYDROcodone-acetaminop hen (NORCO) 7.5-325 mg per tabletIndications:Cadmium Liquor Maker majo pain syndrome,Chronic use of opiate for therapeutic purpose,Pain medication agreement Take 1 Tablet by mouth every 6 hours as needed for up to 8 days for Pain. 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 3 mL 3 08/30/2019 11/23/2022 lancetsIndications:Imp aired glucose tolerance Brand:one touch [employer], tests 2 times daily 100 Each 2 [...] 2 08/19/2021 01/19/2023 methocarbamoL (ROBAXIN) 500 mg tabletIndications:Cadmium Liquor Maker majo pain syndrome take 2 tablets by [...] Tablet 06/22/2021 10/09/2021 roflumilast (DALIRESP) 500 mcg tabletIndications:Cadmium Liquor Maker majo obstructive pulmonary disease, unspecified COPD type [...] Info) Description 06/29/2024 14:15 EDT Office Visit [facility] [address] [place] [address] Jean Munoz MD [address] [place] [address] documented as of this encounter Visit Diagnoses Not on filedocumented in this encounter Care Teams Underground Miner Relationship Specialty Start Date End Date Jean Munoz MD [address] [place] [phone] PCP - General 12/31/08 Manny Rizzo MD [address] [place] [phone] 04/20/10 Afia Valle MD [address] [place] [address], [facility] [address] [place] [phone] Care Team Radiation Oncology 07/02/21 documented as of this encounter
--- OUTSIDE RECORDS SUMMARY | 2024-06-10 07:10 | XMS_ITS | Encounter Summary ---
Author Organization [facility] Address [address] [place] [address] Care Team Providers Care Head Trimmer Name Role Phone Jean Munoz MD Primary Care Provider Manny Rizzo MD Unavailable Afia Valle MD Unavailable Reason for Visit * Reason Comments Lung Cancer Encounter Details Date Type Department Care Team (Late st Contact Info) Description 08/11/2021 Radiation Therapy Visit [facility] Radiation Oncology - Main [place] [address] [place] [address] Deidre Hall, RN [address] [place] [address] Malignant neoplasm of upper lobe, right bronchus [...] Sign Reading Time Taken Comments Blood Pressure 125/82 08/11/2021 1144 EST Pulse 81 08/11/2021 1144 EST Temperature 36.5 ??C (97.7 ??F) 08/11/2021 1144 EST Respiratory Rate 18 08/11/2021 1144 EST Oxygen Saturation 100% 08/11/2021 1144 EST Inhaled Oxygen Concentration - - Weight [...] Progress Notes * Deidre Hall, RN - 08/11/2021 1144 EST Nursing On Treatment Visit Assessment: Liset Viera is currently receiving radiation therapy treatment and is being seen today for their weekly on treatment visit. Assessment: DEIDRE HALL RN, 08/11/21 Radiation Therapy Site: RUL of lung Cumulative RT Dose: 3200 cGy Daily RT Dose: 400 cGy Total RT Planned Dose: 6000 cGy Chemotherapy Agent: none Liset Viera cancelled her appt on 08/08 due to N/V. She is believes it was food related and is much better now. She uses ondansetron and promethazine with excellent effect. She was eating over the weekend and her appetite is back. VSS. RA oxygen saturation is 100%, RR 18. She is noticing more phlegm with her mild cough. He chest skin is barely pink, she is moisturizing daily, she has no skin changes on her back. She is fatigued and states she is sleeping well. She feels well supported by family. Plan: Continue radiation therapy as planned. documented in this encounter Plan of Treatment Upcoming Encounters Date Type Department Care Team (Late st Contact Info) Description 06/29/2024 14:15 EDT Office Visit [facility] [address] [place] [address] Jean Munoz MD [address] [place] [address] documented as of this encounter Visit Diagnoses Diagnosis Malignant neoplasm of upper lobe, right bronchus or lung ([facility])- Primary Screening for osteoporosis- Primary Special screening for osteoporosis Primary narcolepsy without cataplexy Chronic pain syndrome Chronic low back pain Lumbago Chronic use of opiate for therapeutic purpose Pain medication agreement Encounter for long-term (current) use of other medications Screen for colon cancer Special screening for malignant neoplasms, colon documented in this encounter Care Teams Head Trimmer Relationship Specialty Start Date End Date Jean Munoz MD [address] [place] [phone] PCP - General 12/31/08 [place] [address] [place] [phone] 04/20/10 Afia Valle MD [address] [place] [address] [address] [place] [phone] Care Team Radiation Oncology 07/02/21 documented as of this encounter
--- OUTSIDE RECORDS SUMMARY | 2024-06-10 07:10 | XMS_ITS | Encounter Summary ---
Author Organization [facility] Address [address] [place] [address] Care Team Providers Care Machinery Erector Name Role Phone Jean Munoz MD Primary Care Provider Manny Rizzo MD Unavailable Afia Valle MD Unavailable [phone] Encounter Details Date Type Department Care Team (Latest Contact Info) Description 08/06/2021 10:15 EST - 08/06/2021 23:59 EST Hospital Encounter [facility] Radiation Oncology - Main [place] [address] [place], [place] [phone] [facility] Resource, Platform Discharge Disposition: Home or [...] you? Rarely 04/24/2021 How often does anyone, caludia long family, insult, scream, curse or threaten [...] stripsIndications:Arpita richter glucose tolerance 1 Strip by [facility] (non-drug; combo route) route 2 times daily. 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 Chronic pain Daily Max: 4 Tablets 112 Tablet 07/21/2021 08/26/2021 HYDROcodone-acetaminop hen (NORCO) 7.5-325 mg per tabletIndications:Urologist Physician majo pain syndrome,Chronic use of opiate for therapeutic purpose,Pain medication agreement Take 1 Tablet by mouth every 6 hours as needed for up to 8 days for Pain. For chronic pain Daily Max: 4 Tablets 20 Tablet 07/13/2021 08/26/2021 HYDROcodone-acetaminop hen (NORCO) 7.5-325 mg per tabletIndications:Urologist Physician majo pain syndrome,Chronic use of opiate for [...] mg base)/3 mL nebulizer solutionIndications:Pa nlobular emphysema ([facility]) Take 3 mL by nebulization every 4 hours as needed for Wheezing. 3 mL 3 08/30/2019 11/23/2022 lancetsIndications:Imp aired glucose tolerance Brand:one touch [employer], tests 2 times daily 100 Each 2 07/09/2021 08/25/2021 levalbuterol (XOPENEX HFA) 45 mcg/actuation inhalerIndications:Jarquin lobular emphysema (HCC-CMS) INHALE TWO PUFFS BY MOUTH EVERY FOUR HOURS NEEDED for wheezing as directed. for shortness of breath 45 g 3 05/29/2021 06/30/2022 methocarbamoL (ROBAXIN) 500 mg tabletIndications:Urologist Physician majo pain syndrome take 2 tablets by [...] Tablet 06/22/2021 10/09/2021 roflumilast (DALIRESP) 500 mcg tabletIndications:Urologist Physician majo obstructive pulmonary disease, unspecified COPD type [...] 14:15 EDT Office Visit [facility] [address] [place] [address] Jean Munoz MD [address] [place] [phone] documented as of this encounter Visit Diagnoses Not on filedocumented in this encounter Care Teams Machinery Erector Relationship Specialty Start Date End Date Jean Munoz MD [address] [place] [address] PCP - General 12/31/08 Manny Rizzo MD [address] [place] [phone] 04/20/10 Afia Valle MD [address] [facility] [address] [place] [address] Care Team Radiation Oncology 07/02/21 documented as of this encounter
--- OUTSIDE RECORDS SUMMARY | 2024-06-10 07:10 | XMS_ITS | Encounter Summary ---
Author Organization [facility] Address [address] [place] [address] Care Team Providers Care Land Leasing Information Clerk Name Role Phone Jean Munoz MD Primary Care Provider Manny Rizzo MD Unavailable Afia Valle MD Unavailable Encounter Details Date Type Department Care Team (Latest Contact Info) Description 08/13/2021 2:30 EST - 08/13/2021 10:14 [facility] Hospital Encounter [facility] Radiation Oncology - Main [place] [address] [place], [place] [phone] Malignant neoplasm of upper lobe, right bronchus or lung (HCC) (HCC-CMS) Discharge Disposition: Home or Self Care [...] slept in a retirement (including now)? 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 3 mL 3 08/30/2019 11/23/2022 lancetsIndications:Imp aired glucose tolerance Brand:[employer], tests 2 times daily 100 Each 2 07/09/2021 08/25/2021 levalbuterol (XOPENEX HFA) 45 mcg/actuation inhalerIndications:Jarquin lobular emphysema (HCC-CMS) INHALE TWO PUFFS BY MOUTH EVERY FOUR HOURS NEEDED for wheezing as directed. 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 take 2 tablets by [...] Tablet 06/22/2021 10/09/2021 roflumilast (DALIRESP) 500 mcg tabletIndications:Transport Aircrewman majo obstructive pulmonary disease, unspecified COPD type [...] Visit [facility] [address] [place] [address] Jean Munoz MD [address] [place] [address] documented as of this encounter Procedures Procedure Name Priority Date/Time Associated Diagnosis Comments RAD ONC MSQ TREATMENT SUMMARY Routine 08/20/2021 15:04 EST Malignant neoplasm of upper lobe, right bronchus or lung (HCC) (HCC-CMS) RAD ONC MSQ TREATMENT SUMMARY Routine 08/19/2021 11:16 EST Malignant neoplasm of upper lobe, right bronchus or lung (HCC) (HCC-CMS) RAD ONC MSQ TREATMENT SUMMARY Routine 08/18/2021 10:26 EST Malignant neoplasm of upper lobe, right bronchus or lung (HCC) (HCC-CMS) RAD ONC MSQ TREATMENT SUMMARY Routine 08/15/2021 10:43 EST Malignant neoplasm of upper lobe, right bronchus or lung (HCC) (HCC-CMS) RAD ONC MSQ TREATMENT SUMMARY Routine 08/14/2021 10:23 EST Malignant neoplasm of upper lobe, right bronchus or lung (HCC) (HCC-CMS) RAD ONC MSQ TREATMENT SUMMARY Routine 08/13/2021 10:44 EST Malignant neoplasm of upper lobe, right bronchus or lung (HCC) (HCC-CMS) RAD ONC MSQ TREATMENT SUMMARY Routine 08/12/2021 10:23 EST Malignant neoplasm of upper lobe, right bronchus or lung (HCC) (HCC-CMS) documented in this encounter Results * RAD ONC MSQ TREATMENT SUMMARY (08/20/2021 15:04 EST) Treatment Site RUL MOSAI Q RADIATION ONCOLOGY Course Number 1 MOSAIQ RADIATION ONCOLOGY Prescribed Fractional Dose 400 cGray MOSAIQ RADIATION ONCOLOGY Prescribed Total Dose 6,000 cGray MOSAIQ RADIATION ONCOLOGY Actual Fractions Delivered 15 MOSAIQ RADIATION ONCOLOGY Actual Session Delivered Dose 400 cGray MOSAIQ RADIATION ONCOLOGY Actual Total Dose 6,000 cGray MOSAIQ RADIATION ONCOLOGY Prescribed Technique VMAT MOSAIQ RADIATION ONCOLOGY Elapsed Days 22 MOSAIQ RADIATION ONCOLOGY Start Date 07/29/2021 MOSAIQ RADIATION ONCOLOGY Last Date 08/20/2021 MOSAIQ RADIATION ONCOLOGY Prescribed Number of Fractions 15 MOSAIQ RADIATION ONCOLOGY 08/20/2021 15:0 4 EST Provider Unknown RADIATION ONCOLOGY O JACKIE MOSAIQ RADIATION ONCOLOGY * RAD ONC MSQ TREATMENT SUMMARY (08/19/2021 11:16 EST) Treatment Site RU MOSAI Q RADIATION ONCOLOGY Course Number 1 MOSAIQ RADIATION ONCOLOGY Prescribed Fractional Dose 400 cGray MOSAIQ RADIATION ONCOLOGY Prescribed Total Dose 6,000 cGray MOSAIQ RADIATION ONCOLOGY Actual Fractions Delivered 14 MOSAIQ RADIATION ONCOLOGY Actual Session Delivered Dose 400 cGray MOSAIQ RADIATION ONCOLOGY Actual Total Dose 5,600 cGray MOSAIQ RADIATION ONCOLOGY Prescribed Technique VMAT MOSAIQ RADIATION ONCOLOGY Elapsed Days 21 MOSAIQ RADIATION ONCOLOGY Start Date 07/29/2021 MOSAIQ RADIATION ONCOLOGY Last Date 08/19/2021 MOSAIQ RADIATION ONCOLOGY Prescribed Number of Fractions 15 MOSAIQ RADIATION ONCOLOGY 08/19/2021 11:1 6 EST Provider Unknown RADIATION ONCOLOGY Janet MEJIA MOSAIQ RADIATION ONCOLOGY * RAD ONC MSQ TREATMENT SUMMARY (08/18/2021 10:26 EST) Treatment Site RU MOSAI Q RADIATION ONCOLOGY Course Number 1 MOSAIQ RADIATION ONCOLOGY Prescribed Fractional Dose 400 cGray MOSAIQ RADIATION ONCOLOGY Prescribed Total Dose 6,000 cGray MOSAIQ RADIATION ONCOLOGY Actual Fractions Delivered 13 MOSAIQ RADIATION ONCOLOGY Actual Session Delivered Dose 400 cGray MOSAIQ RADIATION ONCOLOGY Actual Total Dose 5,200 cGray MOSAIQ RADIATION ONCOLOGY Prescribed Technique VMAT MOSAIQ RADIATION ONCOLOGY Elapsed Days 20 MOSAIQ RADIATION ONCOLOGY Start Date 07/29/2021 MOSAIQ RADIATION ONCOLOGY Last Date 08/18/2021 MOSAIQ RADIATION ONCOLOGY Prescribed Number of Fractions 15 MOSAIQ RADIATION ONCOLOGY 08/18/2021 10:2 6 EST Provider Unknown RADIATION ONCOLOGY O JACKIE MOSAIQ RADIATION ONCOLOGY * RAD ONC MSQ TREATMENT SUMMARY (08/15/2021 10:43 EST) Treatment Site [facility] MOSAI Q RADIATION ONCOLOGY Course Number 1 MOSAIQ RADIATION ONCOLOGY Prescribed Fractional Dose 400 cGray MOSAIQ RADIATION ONCOLOGY Prescribed Total Dose 6,000 cGray MOSAIQ RADIATION ONCOLOGY Actual Fractions Delivered 12 MOSAIQ RADIATION ONCOLOGY Actual Session Delivered Dose 400 cGray MOSAIQ RADIATION ONCOLOGY Actual Total Dose 4,800 cGray MOSAIQ RADIATION ONCOLOGY Prescribed Technique VMAT MOSAIQ RADIATION ONCOLOGY Elapsed Days 17 MOSAIQ RADIATION ONCOLOGY Start Date 07/29/2021 MOSAIQ RADIATION ONCOLOGY Last Date 08/15/2021 MOSAIQ RADIATION ONCOLOGY Prescribed Number of Fractions 15 MOSAIQ RADIATION ONCOLOGY 08/15/2021 10:4 3 EST Provider Unknown RADIATION ONCOLOGY O JACKIE MOSAIQ RADIATION ONCOLOGY * RAD ONC MSQ TREATMENT SUMMARY (08/14/2021 10:23 EST) Pathologist [facility] Treatment Site [facility] MOSAI Q RADIATION ONCOLOGY Course Number 1 MOSAIQ RADIATION ONCOLOGY Prescribed Fractional Dose 400 cGray MOSAIQ RADIATION ONCOLOGY Prescribed Total Dose 6,000 cGray MOSAIQ RADIATION ONCOLOGY Actual Fractions Delivered 11 MOSAIQ RADIATION ONCOLOGY Actual Session Delivered Dose 400 cGray MOSAIQ RADIATION ONCOLOGY Actual Total Dose 4,400 cGray MOSAIQ RADIATION ONCOLOGY Prescribed Technique VMAT MOSAIQ RADIATION ONCOLOGY Elapsed Days 16 MOSAIQ RADIATION ONCOLOGY Start Date 07/29/2021 MOSAIQ RADIATION ONCOLOGY Last Date 08/14/2021 MOSAIQ RADIATION ONCOLOGY Prescribed Number of Fractions 15 MOSAIQ RADIATION ONCOLOGY 08/14/2021 10:2 3 EST Provider Unknown RADIATION ONCOLOGY O JACKIE MOSAIQ RADIATION ONCOLOGY * RAD ONC MSQ TREATMENT SUMMARY (08/13/2021 10:44 EST) Pathologist [facility] Treatment Site [facility] MOSAI Q RADIATION ONCOLOGY Course Number 1 MOSAIQ RADIATION ONCOLOGY Prescribed Fractional Dose 400 cGray MOSAIQ RADIATION ONCOLOGY Prescribed Total Dose 6,000 cGray MOSAIQ RADIATION ONCOLOGY Actual Fractions Delivered 10 MOSAIQ RADIATION ONCOLOGY Actual Session Delivered Dose 400 cGray MOSAIQ RADIATION ONCOLOGY Actual Total Dose 4,000 cGray MOSAIQ RADIATION ONCOLOGY Prescribed Technique VMAT MOSAIQ RADIATION ONCOLOGY Elapsed Days 15 MOSAIQ RADIATION ONCOLOGY Start Date 07/29/2021 MOSAIQ RADIATION ONCOLOGY Last Date 08/13/2021 MOSAIQ RADIATION ONCOLOGY Prescribed Number of Fractions 15 MOSAIQ RADIATION ONCOLOGY 08/13/2021 10:4 4 EST Provider Unknown RADIATION ONCOLOGY O JACKIE MOSAIQ RADIATION ONCOLOGY * RAD ONC MSQ TREATMENT SUMMARY (08/12/2021 10:23 EST) [facility] Treatment Site [facility] MOSAI Q RADIATION ONCOLOGY Course Number 1 MOSAIQ RADIATION ONCOLOGY Prescribed Fractional Dose 400 cGray MOSAIQ RADIATION ONCOLOGY Prescribed Total Dose 6,000 cGray MOSAIQ RADIATION ONCOLOGY Actual Fractions Delivered 9 MOSAIQ RADIATION ONCOLOGY Actual Session Delivered Dose 400 cGray MOSAIQ RADIATION ONCOLOGY Actual Total Dose 3,600 cGray MOSAIQ RADIATION ONCOLOGY Prescribed Technique VMAT MOSAIQ RADIATION ONCOLOGY Elapsed Days 14 MOSAIQ RADIATION ONCOLOGY Start Date 07/29/2021 MOSAIQ RADIATION ONCOLOGY Last Date 08/12/2021 MOSAIQ RADIATION ONCOLOGY Prescribed Number of Fractions 15 MOSAIQ RADIATION ONCOLOGY 08/12/2021 10:2 3 EST Provider Unknown RADIATION ONCOLOGY Janet MEJIA MOSAIQ RADIATION ONCOLOGY documented in this encounter Visit Diagnoses Diagnosis [...] colon documented in this encounter Care Teams Land Leasing Information Clerk Relationship Specialty Start Date End Date Jean Munoz MD [address] [place] [phone] PCP - General 12/31/08 Manny Rizzo MD [address] [place] [phone] 04/20/10 Afia Valle MD [address] [place] [address], [address] [place] [phone] MD Care Team Radiation Oncology 07/02/21 documented as of this encounter
--- OUTSIDE RECORDS SUMMARY | 2024-06-10 07:10 | XMS_ITS | Encounter Summary ---
Author Organization [facility] Address [address] [place] [address] Care Team Providers Care Farm Helper Name Role Phone Jean Munoz MD Primary Care Provider Manny Rizzo MD Unavailable Afia Valle MD Unavailable Reason for Visit * Reason Comments Other Encounter Details Date Type Department Care Team (Late st Contact Info) Description 08/11/2021 Refill [facility] Family Medicine [facility] [address] [place] [address] Jean Munoz MD [address] [place] [phone] Other Social History Tobacco Use Types [...] End Da te zolpidem (AMBIEN) 5 mg tablet Take 1 Tablet by mouth at bedtime as needed for up to 28 days for Sleep. May fill Wednesday08/16/21 Daily Max: 5 mg 28 Tablet 08/18/2021 08/26/2021 zolpidem (AMBIEN) 5 mg tablet Take 1 Tablet by mouth at bedtime as needed for up to 28 days for Sleep. Daily Max: 5 mg 28 Tablet 08/18/2021 08/12/2021 zolpidem (AMBIEN) 5 mg tabletIndications:Insomn ia, unspecified type Take 1 Tablet by mouth at bedtime as needed for up to 6 days for Sleep. Daily Max: 5 mg 6 Tablet 08/12/2021 08/26/2021 documented in this encounter Miscellaneous Notes * Telephone Encounter - Jean Munoz MD - 08/12/2021 1830 EST New Rx done x2 for Ambien 08/12-08/18, then 08/18-09/15 (to align with other controlled Rx), please lethraul louie, thanks. * Telephone Encounter - Lizz Negro RN - 08/12/2021 0890 EST Medication(s) Requested: ambien 5 mg Preferred Pharmacy: [facility] Is patient out of medication? unknown Last Refill Date: 07/15/21 Last Visit Date with Ordering Provider: 06/25/21 Next Non-Acute Visit Date Scheduled with Care Team: 08/26/21 LIZZ NEGRO RN 08/12/2021 8:52 documented in this encounter Plan of Treatment Upcoming Encounters Date Type Department Care Team (Late st Contact Info) Description 06/29/2024 14:15 EDT Office Visit [address] [address] Jean Munoz MD [address] [place] [phone] documented as of this encounter Visit Diagnoses [...] 5 mg tabletIndications:Insomn ia, unspecified type TAKE ONE TABLET BY MOUTH NIGHTLY AT BEDTIME NEEDED *limit 1 tab daily 07/15/2021 08/12/2021 zolpidem (AMBIEN) 5 mg tablet Take 1 Tablet by mouth at bedtime as needed for up to 28 days for Sleep. Daily Max: 5 mg 08/18/2021 08/12/2021 documented as of this encounter Care Teams Farm Helper Relationship Specialty Start Date End Date Jean Munoz MD [address] [place] [address] PCP - General 12/31/08 Manny Rizzo MD [address] [place] [phone] 04/20/10 Afia Valle MD [address] [facility] 2 [place] [phone] Care Team Radiation Oncology 07/02/21 documented as of this encounter
--- OUTSIDE RECORDS SUMMARY | 2024-06-10 07:10 | XMS_ITS | Encounter Summary ---
Author Organization [facility] Address [address] [place] [address] Care Team Providers Care Box Person Name Role Phone Jean Munoz MD Primary Care Provider Manny Rizzo MD Unavailable Afia Valle MD Unavailable Reason for Visit * Reason Onset Date Comments Follow-up 08/08/2021 Encounter Details Date Type Department Care Team (Late st Contact Info) Description 08/08/2021 Telephone [facility] Radiation Oncology - Main [place] [address] [place] [address] Vera Sears, CHRIS [address] [place] [address] Follow-up Social History Tobacco Use Types Packs/Day [...] encounter Miscellaneous Notes * Telephone Encounter - Vera Sears, RN - 08/08/2021 0954 EST Liset called to cancel her scheduled RT for today due to nausea/vomiting. Called Liset to check in. She reports hx of n/v managed by her PCP. She does have anti- emetics prescribed and is taking them. She states her n/v can last from hours to days, but at this time she will plan on coming in for RT onMonday. Liset denies esophageal irritation/pain, no blood in emesis, no changes in breathing (continued ALEJANDRE/dry cough both at baseline). Advised Liset to call her PCP if n/v not resolved in usual length of time and to call Radiation Oncology for worsening symptoms or if unable to make it to scheduled treatments. documented in this encounter Plan of Treatment Upcoming Encounters Date Type Department Care Team (Late st Contact Info) Description 06/29/2024 14:15 EDT Office Visit [facility] [address] [place] [address] Jean Munoz MD [address] [place] [address] documented as of this encounter Visit Diagnoses Not on filedocumented in this encounter Care Teams Box Person Relationship Specialty Start Date End Date Jean Munoz MD [address] [place] [address] PCP - General 12/31/08 Manny Rizzo MD [address] [place] [address] 04/20/10 Afia Valle MD 111 [facility] 2 [place] [address] MD Care Team Radiation Oncology 07/02/21 documented as of this encounter
--- OUTSIDE RECORDS SUMMARY | 2024-06-10 07:10 | XMS_ITS | Encounter Summary ---
Author Organization [facility] Address [address] [place] [address] Care Team Providers Care Agriculture Extension Specialist Name Role Phone Jean Munoz MD Primary Care Provider Manny Rizzo MD Unavailable Afia Valle MD Unavailable Encounter Details Date Type Department Care Team (Latest Contact Info) Description 08/01/2021 10:02 EST - 08/01/2021 23:59 [facility] Hospital Encounter [facility] Radiation Oncology - Main [place] [address] [place], [place] [phone] [facility] Resource, Platform Discharge Disposition: Home [...] glucose tolerance 1 Strip by [facility] (non-drug; combo route) route 2 times daily. 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 3 mL 3 08/30/2019 11/23/2022 lancetsIndications:Imp aired glucose tolerance Brand:one touch CenTrak, tests 2 times daily 100 Each 2 07/09/2021 08/25/2021 levalbuterol (XOPENEX HFA) 45 mcg/actuation inhalerIndications:Jraquin lobular emphysema (HCC-CMS) INHALE TWO PUFFS BY MOUTH EVERY FOUR HOURS NEEDED for wheezing as directed. 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 take 2 tablets by [...] Tablet 06/22/2021 10/09/2021 roflumilast (DALIRESP) 500 mcg tabletIndications:Airport Shuttle Driver mjao obstructive pulmonary disease, unspecified COPD type (HCC-CMS) [...] 14:15 EDT Office Visit [facility] [address] [place] [address] Jean Munoz MD [address] [place] [phone] documented as of this encounter Visit Diagnoses Not on filedocumented in this encounter Care Teams Agriculture Extension Specialist Relationship Specialty Start Date End Date Jean Munoz MD [address] [place] [address] PCP - General 12/31/08 Manny Rizzo MD [address] [place] [phone] 04/20/10 Afia Valle MD 111 [facility] 2 [place] [address] Care Team Radiation Oncology 07/02/21 documented as of this encounter
--- OUTSIDE RECORDS SUMMARY | 2024-06-10 07:10 | XMS_ITS | Encounter Summary ---
Author Organization [facility] Address [address] [place] [address] Care Team Providers Care Director Of Partner Marketing Name Role Phone Jean Munoz MD Primary Care Provider Manny Rizzo MD Unavailable Afia Valle MD Unavailable [phone] Encounter Details Date Type Department Care Team (Latest Contact Info) Description 08/04/2021 10:03 EST - 08/04/2021 23:59 [facility] Hospital Encounter [facility] Radiation Oncology - Main [place] [address] [place], [place] [phone] [facility] Resource, Platform Discharge Disposition: Home or [...] stripsIndications:Arpita richter glucose tolerance [address] 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 3 mL 3 08/30/2019 11/23/2022 lancetsIndications:Imp aired glucose tolerance Brand:one touch Spectral Image, tests 2 times daily 100 Each 2 07/09/2021 08/25/2021 levalbuterol (XOPENEX HFA) 45 mcg/actuation inhalerIndications:Jarquin lobular emphysema (HCC-CMS) INHALE TWO PUFFS BY MOUTH EVERY FOUR HOURS NEEDED for wheezing as directed. 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 take 2 tablets by [...] Tablet 06/22/2021 10/09/2021 roflumilast (DALIRESP) 500 mcg tabletIndications:Container Shop Welder majo obstructive pulmonary disease, unspecified COPD type [...] Visit [facility] [address] [place] [address] Jean Munoz MD [address] [place] [phone] documented as of this encounter Visit Diagnoses Not on filedocumented in this encounter Care Teams Director Of Partner Marketing Relationship Specialty Start Date End Date Jean Munoz MD [address] [place] [address] PCP - General 12/31/08 Manny Rizzo MD [address] [place] [phone] 04/20/10 Afia Valle MD 111 [facility] 2 [place] [address] Care Team Radiation Oncology 07/02/21 documented as of this encounter
--- OUTSIDE RECORDS SUMMARY | 2024-06-10 07:10 | XMS_ITS | Encounter Summary ---
Author Organization [facility] Address [address] [place] [address] Care Team Providers Care Monitor And Storage Bin Tender Name Role Phone Jean Munoz MD Primary Care Provider Manny Rizzo MD Unavailable Afia Valle MD Unavailable [phone] Encounter Details Date Type Department Care Team (Latest Contact Info) Description 08/11/2021 11:08 EST - 08/11/2021 23:59 EST Hospital Encounter [facility] Radiation Oncology - Main [place] [address] [place], [place] [phone] [facility] Resource, Platform Discharge Disposition: Home or [...] stripsIndications:Arpita richter glucose tolerance 1 Strip by [facility] (non-drug; combo route) route 2 times daily. 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 Chronic pain Daily Max: 4 Tablets 112 Tablet 07/21/2021 08/26/2021 HYDROcodone-acetaminop hen (NORCO) 7.5-325 mg per tabletIndications:Client Business Manager majo pain syndrome,Chronic use of opiate for therapeutic purpose,Pain medication agreement Take 1 Tablet by mouth every 6 hours as needed for up to 8 days for Pain. For chronic pain Daily Max: 4 Tablets 20 Tablet 07/13/2021 08/26/2021 HYDROcodone-acetaminop hen (NORCO) 7.5-325 mg per tabletIndications:Client Business Manager majo pain syndrome,Chronic use of opiate for [...] mL nebulizer solutionIndications:Pa nlobular emphysema ([facility]-CMS) Take 3 mL by nebulization every 4 hours as needed for Wheezing. 3 mL 3 08/30/2019 11/23/2022 lancetsIndications:Imp aired glucose tolerance Brand:one touch Sobrr, tests 2 times daily 100 Each 2 07/09/2021 08/25/2021 levalbuterol (XOPENEX HFA) 45 mcg/actuation inhalerIndications:Jarquin lobular emphysema (HCC-CMS) INHALE TWO PUFFS BY MOUTH EVERY FOUR HOURS NEEDED for wheezing as directed. 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 For narcolepsy Daily Max: 10 mg 28 Tablet 08/18/2021 08/26/2021 methylphenidate HCl (RITALIN;METHYLIN) 10 mg tabletIndications:Prim hseila narcolepsy without cataplexy Take 1 Tablet by [...] Tablet 06/22/2021 10/09/2021 roflumilast (DALIRESP) 500 mcg tabletIndications:Client Business Manager majo obstructive pulmonary disease, unspecified COPD type [...] Tablet 08/18/2021 08/12/2021 zolpidem (AMBIEN) 5 mg tablet Take 1 Tablet by mouth at bedtime as needed for up to 28 days for Sleep. January08/16/21 Daily Max: 5 mg 28 Tablet 08/18/2021 08/26/2021 zolpidem (AMBIEN) 5 mg tabletIndications:Inso mnia, unspecified [...] EDT Office Visit [facility] 3 [place] [address] Jean Munoz MD [address] [place] [address] documented as of this encounter Visit Diagnoses Not on filedocumented in this encounter Care Teams Monitor And Storage Bin Tender Relationship Specialty Start Date End Date Jean Munoz MD [address] [place] [address] PCP - General 12/31/08 Manny Rizzo MD [address] [place] [phone] 04/20/10 Afia Valle MD 111 [facility], [facility] 2 [place] [phone] Care Team Radiation Oncology 07/02/21 documented as of this encounter
--- OUTSIDE RECORDS SUMMARY | 2024-06-10 07:10 | XMS_ITS | Encounter Summary ---
Author Organization [facility] Address [address] [place] [address] Care Team Providers Care Mounter Brass Wind Instruments Name Role Phone Jean Munoz MD Primary Care Provider Manny Rizzo MD Unavailable Afia Valle MD Unavailable Encounter Details Date Type Department Care Team (Latest Contact Info) Description 08/12/2021 10:04 EST - 08/12/2021 23:59 EST Hospital Encounter [facility] Radiation Oncology - Main [place] [address] [place], [place] [phone] [facility] Resource, Platform Discharge Disposition: Home or Self [...] richter glucose tolerance 1 Strip [place] [facility] [place]non-drug; [...] 02/05/2022 HYDROcodone-acetaminop hen (NORCO) 7.5-325 mg per tabletIndications:Family Service Counselor majo 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 Chronic pain Daily Max: 4 Tablets 112 Tablet 07/21/2021 08/26/2021 HYDROcodone-acetaminop hen (NORCO) 7.5-325 mg per tabletIndications:Family Service Counselor majo pain syndrome,Chronic use of opiate for therapeutic purpose,Pain medication agreement Take 1 Tablet by mouth every 6 hours as needed for up to 8 days for Pain. For chronic pain Daily Max: 4 Tablets 20 Tablet 07/13/2021 08/26/2021 HYDROcodone-acetaminop hen (NORCO) 7.5-325 mg per tabletIndications:Family Service Counselor majo pain syndrome,Chronic use of opiate for [...] mL nebulizer solutionIndications:Pa nlobular emphysema ([facility]-CMS) Take 3 mL by nebulization every 4 hours as needed for Wheezing. 3 mL 3 08/30/2019 11/23/2022 lancetsIndications:Imp aired glucose tolerance Brand:one touch Brickstream, tests 2 times daily 100 Each 2 07/09/2021 08/25/2021 levalbuterol (XOPENEX HFA) 45 mcg/actuation inhalerIndications:Jarquin lobular emphysema (HCC-CMS) INHALE TWO PUFFS BY MOUTH EVERY FOUR HOURS NEEDED for wheezing as directed. for shortness of breath 45 g 3 05/29/2021 06/30/2022 methocarbamoL (ROBAXIN) 500 mg tabletIndications:Family Service Counselor majo pain syndrome take 2 tablets by [...] 08/26/2021 methylphenidate HCl (RITALIN;METHYLIN) 20 mg tabletIndications:Prim sheial narcolepsy without cataplexy Take 2 Tablets by [...] Tablet 06/22/2021 10/09/2021 roflumilast (DALIRESP) 500 mcg tabletIndications:Family Service Counselor majo obstructive pulmonary disease, unspecified COPD type [...] Info) Description 06/29/2024 14:15 EDT Office Visit [address] [phone] Jean Munoz MD [address] [place] [address] documented as of this encounter Visit Diagnoses Not on filedocumented in this encounter Care Teams Mounter Brass Wind Instruments Relationship Specialty Start Date End Date Jean Munoz MD [address] [place] [address] PCP - General 12/31/08 [place] [address] [place] [phone] 04/20/10 Afia Valle MD 111 [facility], Level [address] [place] [phone] Care Team Radiation Oncology 07/02/21 documented as of this encounter
--- OUTSIDE RECORDS SUMMARY | 2024-06-10 07:10 | XMS_ITS | Encounter Summary ---
Author Organization [facility] Address [address] [place] [address] Care Team Providers Care Toll Collector Name Role Phone Jean Munoz MD Primary Care Provider Manny Rizzo MD Unavailable Afia Valle MD Unavailable Reason for Visit * Reason Onset Date Comments Other 08/05/2021 Radiation Therap On Treatment Visit Encounter Details Date Type Department Care Team (Late st Contact Info) Description 08/05/2021 Radiation Therapy Visit [facility] Radiation Oncology - [address] [address] Afia Valle MD [address] [place] [address], Level [address] [place] [address] Malignant neoplasm of upper lobe, [...] Progress Notes * Afia Valle MD - 08/05/2021 1317 EST On Treatment Visit Note Date/Time: 08/05/21 13:18 Diagnosis: The encounter diagnosis was Malignant neoplasm of upper lobe, right bronchus or lung (HCC). Site: [email or web address]] Daily RT Dose: 400 cGy Current RT Dose: 2400 cGy Planned RT Dose: 6000 cGy Concurrent chemo: None Physician Assessment Patient tolerance: Feeling fatigued, but otherwise tolerating RT well Pain scale: 0/10 Physical Exam ECOG Performance status: 0: Fully active, able to carry on all pre-disease performance without restriction Gen: well-appearing, no acute distress Skin: no reaction. Neuro: AO, grossly non-focal Data Review: I have reviewed the patient's pertinent vitals signs and labs as resulted in the EMR. Assessment: Stable course with expected RT side effects. Grade 1 fatigue Plan: Continue RT. A review of treatment set-up, dosimetry, and IGRT images has been performed. documented in this encounter Plan of Treatment Upcoming Encounters Date Type Department Care Team (Late st Contact Info) Description 06/29/2024 14:15 EDT Office Visit [facility] 3 [place] [address] Jean Munoz MD [address] [place] [address] documented as of this encounter [...] colon documented in this encounter Care Teams Toll Collector Relationship Specialty Start Date End Date Jean Munoz MD 3 [place] [address] PCP - General 12/31/08 Manny Rizzo MD [address] [place] [phone] 04/20/10 Afia Valle MD 111 [facility], [facility] 2 [place] [address] Care Team Radiation Oncology 07/02/21 documented as of this encounter
--- OUTSIDE RECORDS SUMMARY | 2024-06-10 07:10 | XMS_ITS | Encounter Summary ---
Author Organization [facility] Address [address] [place] [address] Care Team Providers Care River Transportation Worker Name Role Phone Jean Munoz MD Primary Care Provider Manny Rizzo MD Unavailable Afia Valle MD Unavailable Encounter Details Date Type Department Care Team (Latest Contact Info) Description 08/14/2021 9:58 EST - 08/14/2021 23:59 [facility] Hospital Encounter [facility] Radiation Oncology - Main [place] [address] [place], [place] [phone] [facility] Resource, Platform Discharge Disposition: Home [...] stripsIndications:Arpita richter glucose tolerance 1 Strip by [facility] (non-drug; combo route) route 2 times daily. [...] 02/05/2022 HYDROcodone-acetaminop hen (NORCO) 7.5-325 mg per tabletIndications:Soil Chemist majo 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 Chronic pain Daily Max: 4 Tablets 112 Tablet 07/21/2021 08/26/2021 HYDROcodone-acetaminop hen (NORCO) 7.5-325 mg per tabletIndications:Soil Chemist majo pain syndrome,Chronic use of opiate for therapeutic purpose,Pain medication agreement Take 1 Tablet by mouth every 6 hours as needed for up to 8 days for Pain. For chronic pain Daily Max: 4 Tablets 20 Tablet 07/13/2021 08/26/2021 HYDROcodone-acetaminop hen (NORCO) 7.5-325 mg per tabletIndications:Soil Chemist majo pain syndrome,Chronic use of opiate for [...] mL nebulizer solutionIndications:Pa nlobular emphysema ([facility]-CMS) Take 3 mL by nebulization every 4 hours as needed for Wheezing. 3 mL 3 08/30/2019 11/23/2022 lancetsIndications:Imp aired glucose tolerance Brand:one touch Skemaz, tests 2 times daily 100 Each 2 07/09/2021 08/25/2021 levalbuterol (XOPENEX HFA) 45 mcg/actuation inhalerIndications:Jarquin lobular emphysema (HCC-CMS) INHALE TWO PUFFS BY MOUTH EVERY FOUR HOURS NEEDED for wheezing as directed. for shortness of breath 45 g 3 05/29/2021 06/30/2022 methocarbamoL (ROBAXIN) 500 mg tabletIndications:Soil Chemist majo pain syndrome take 2 tablets by [...] Tablet 06/22/2021 10/09/2021 roflumilast (DALIRESP) 500 mcg tabletIndications:Soil Chemist majo obstructive pulmonary disease, unspecified COPD type [...] Info) Description 06/29/2024 14:15 EDT Office Visit [address] [phone] Jean Munoz MD [address] [place] [address] documented as of this encounter Visit Diagnoses Not on filedocumented in this encounter Care Teams River Transportation Worker Relationship Specialty Start Date End Date Jean Munoz MD [address] [place] [address] PCP - General 12/31/08 [place] [address] [place] [phone] 04/20/10 Afia Valle MD [address] [facility], Level [address] [place] [phone] Care Team Radiation Oncology 07/02/21 documented as of this encounter
--- OUTSIDE RECORDS SUMMARY | 2024-06-10 07:11 | XMS_ITS | Encounter Summary ---
Author Organization [facility] Address [address] [place] [address] Care Team Providers Care Continuity Tester Name Role Phone Jean Munoz MD Primary Care Provider Manny Rizzo MD Unavailable Reason for Visit * Reason Comments Medication Management Encounter Details Date Type Department Care Team (Late st Contact Info) Description 06/25/2021 14:00 EDT Telemedicine [facility] [address] [place] [address] Jean Munoz MD [address] [place] [phone] Chronic pain syndrome (Primary Dx); Chronic use of opiate for therapeutic purpose; Pain medication agreement; Primary narcolepsy without cataplexy; Primary cancer of right upper lobe of lung (HCC-CMS) (HCC) (HCC-CMS) Social History Tobacco Use [...] - Inhaled Oxygen Concentration - - Weight 84.4 kg (186 lb) 06/25/2021 1425 EDT pt r eported Height - - Body Mass Index 31.93 06/05/2021 0900 EDT documented in this encounter [...] Dispensed Refills Start Date End Da te HYDROcodone-acetaminop hen (NORCO) 7.5-325 mg per tabletIndications:Student Support Advisor majo pain syndrome,Chronic use of opiate for therapeutic purpose,Pain medication agreement Take 1 Tablet by mouth every 6 hours as needed for up to 28 days for Pain. Daily Max: 4 Tablets 112 Tablet 08/18/2021 08/26/2021 HYDROcodone-acetaminop hen (NORCO) 7.5-325 mg per tabletIndications:Student Support Advisor majo pain syndrome,Chronic use of opiate for therapeutic purpose,Pain medication agreement Take 1 Tablet by mouth every 6 hours as needed for up to 8 days for Pain. For chronic pain Daily Max: 4 Tablets 20 Tablet 07/13/2021 08/26/2021 methylphenidate HCl (RITALIN;METHYLIN) 20 mg tabletIndications:Prim sheila narcolepsy without cataplexy Take 2 Tablets by mouth daily for 28 days. For narcolepsy Daily Max: 40 mg 56 Tablet 07/21/2021 08/26/2021 methylphenidate HCl (RITALIN;METHYLIN) 20 mg tabletIndications:Prim sheila narcolepsy without cataplexy Take 2 Tablets by mouth daily for 28 days. For narcolepsy Daily Max: 40 mg 56 Tablet 08/18/2021 08/26/2021 methylphenidate HCl (RITALIN;METHYLIN) 10 mg tabletIndications:Prim sheila narcolepsy without cataplexy Take 1 Tablet by mouth daily for 28 days. For narcolepsy Daily Max: 10 mg 28 Tablet 07/21/2021 08/26/2021 methylphenidate HCl (RITALIN;METHYLIN) 10 mg tabletIndications:Prim sheila narcolepsy without cataplexy Take 1 Tablet by mouth daily for 28 days. For narcolepsy Daily Max: 10 mg 28 Tablet 08/18/2021 08/26/2021 HYDROcodone-acetaminop hen (NORCO) 7.5-325 mg per tabletIndications:Student Support Advisor majo 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 Chronic pain Daily Max: 4 Tablets 112 Tablet 07/21/2021 08/26/2021 documented in this encounter Progress Notes * Teetee Marshall LPN - 06/25/2021 1400 EDT The concept of ???Telemedicine?? has been [...] in patient???s medical or mental health care. * Jean Munoz MD - 06/25/2021 1400 EDT Primary Care Telemedicine Visit Assessment & Plan Diagnoses and all orders for this visit: Chronic pain syndrome Chronic use of opiate for therapeutic purpose Pain medication agreement Pain seems to be controlled with hydrocodone that was recently increased to 7.5 mg 4 times daily for total daily dose of 30 mg (30 MME). Primary narcolepsy without cataplexy - methylphenidate HCl (RITALIN;METHYLIN) 10 mg tablet - methylphenidate HCl (RITALIN;METHYLIN) 10 mg tablet - methylphenidate HCl (RITALIN;METHYLIN) 20 mg tablet - methylphenidate HCl (RITALIN;METHYLIN) 20 mg tablet Stable on Ritalin, previously managed by neurology but we are prescribing her medication along withher hypnotics for insomnia. Primary cancer of right upper lobe of lung (HCC-CMS) (HCC) Reviewed recent diagnosis, has met with Dr. Valle and her treatment plan has been discussed with her. Supportive counseling today. This visit was done by audio only as video image was not available. Total time approximately 15 minutes. Return in about 2 months (around 08/25/2021) for SERA video chronic pain. Patient education was direct. Barriers were assessed and addressed as needed. Subjective Liset is a 60 y.o. female presenting with Medication Management HPI Liset is a 60-year-old female with chronic pain on long-term opiate therapy, narcolepsy on stimulanttherapy, chronic insomnia, KATJA, COPD scheduled for follow-up video visit. Unfortunately her video was not working so we discussed this by audio instead. Previously discussed recommendation for lung cancer screening with CT scan. This was abnormal and she had diagnostic biopsy confirming lung cancer. She has met with specialist about this and is planning for radiation treatment. No recommendation for chemo or surgery at this point. May be participating in a research study that would involve monthly infusions. We discussed her father had lung cancer and her maternal aunt also had lung cancer. Liset is a former smoker who has quit. Understandably her anxiety has been worse recently and she plans to contact her therapist. Data reviewed this visit: problem list/past medical history, current medications, allergies, familyhistory, social history, last visit note, health maintenance items, recent imaging and recent specialist documentation ROS - See HPI TELEMEDICINE Today's visit was provided through telemedicine: The location of the patient : Home The location of the provider: Clinic Exam Room The following staff and their role did participate in today's encounter visit: Jean Munoz MD Objective Wt 84.4 kg (186 lb) Comment: pt reported LMP 01/11/1987 BMI 31.93 kg/m?? Physical Exam alert, cooperative. documented in this encounter Plan of Treatment Upcoming Encounters Date Type Department Care Team (Late st Contact Info) Description 06/29/2024 14:15 EDT Office Visit [facility] [address] [place] [address] Jean Munoz MD [address] [place] [phone] documented as of this encounter Visit Diagnoses [...] Da te methylphenidate HCl (RITALIN;METHYLIN) 10 mg tabletIndications:Prim sheila narcolepsy without cataplexy Take 1 Tablet by mouth daily for 28 days. For narcolepsy Daily Max: 10 mg Reorder 05/26/2021 06/25/2021 methylphenidate HCl (RITALIN;METHYLIN) 10 mg tabletIndications:Prim sheila narcolepsy without cataplexy Take 1 Tablet by mouth daily for 28 days. For narcolepsy Daily Max: 10 mg Reorder 04/28/2021 06/25/2021 methylphenidate HCl (RITALIN;METHYLIN) 20 mg tabletIndications:Prim sheila narcolepsy without cataplexy Take 2 Tablets by mouth daily for 28 days. For narcolepsy Daily Max: 40 mg Reorder 05/26/2021 06/25/2021 methylphenidate HCl (RITALIN;METHYLIN) 20 mg tabletIndications:Prim sheila narcolepsy without cataplexy Take 2 Tablets by mouth daily for 28 days. For narcolepsy Daily Max: 40 mg Reorder 04/28/2021 06/25/2021 HYDROcodone-acetaminop hen (NORCO) 7.5-325 mg per tablet Take 1 Tablet by mouth every 6 hours for 28 days. Daily Max: 4 Tablets Reorder 06/15/2021 06/25/2021 documented as of this encounter Care Teams Continuity Tester Relationship Specialty Start Date End Date Jean Munoz MD [address] [place] [phone] PCP - General 12/31/08 Manny Rizzo MD [address] [place] [phone] 04/20/10 documented as of this encounter
--- OUTSIDE RECORDS SUMMARY | 2024-06-10 07:11 | XMS_ITS | Encounter Summary ---
Author Organization [facility] Address [address] [place] [address] Care Team Providers Care Fire Management Specialist Name Role Phone Jean Munoz MD Primary Care Provider Manny Rizzo MD Unavailable Afia Valle MD Unavailable Encounter Details Date Type Department Care Team (Latest Contact Info) Description 07/15/2021 9:33 EDT - 07/15/2021 23:59 EDT Hospital Encounter [facility] Radiation Oncology - [facility] [address] [place], [place] [phone] Malignant neoplasm of upper lobe, right bronchus [...] 09/24/2010 blood glucose (BLOOD GLUCOSE TEST) test stripsIndications:Impai red glucose tolerance 1 Strip by [facility] (non-drug; combo route) route 2 times daily. 100 Each 1 07/09/2021 11/06/2022 busPIRone (BUSPAR) 15 mg tabletIndications:Anxie ty Take 1 Tab by mouth 3 times daily. 270 Tab 3 10/16/2020 02/05/2022 Ciclesonide 50 mcg spray,non-aerosolIndica tions:Seasonal allergic rhinitis, unspecified trigger 1 spray each nostril daily 37.5 g 5 03/03/2018 08/04/2023 cycloSPORINE (RESTASIS) 0.05 % ophthalmic emulsion Place 1 drop into both eyes 2 times daily. 1 vial 11/11/2018 10/06/2023 doxycycline (VIBRA-TABS) 100 mg tabletIndications:Rosac ea TAKE 1 TABLET BY MOUTH EVERY DAY for rosacea 90 Tab 3 04/06/2021 02/05/2022 DULoxetine (CYMBALTA) 60 mg capsuleIndications:Anxi ety Take 2 Caps by mouth daily. For depression, anxiety 180 Each 3 01/30/2021 02/05/2022 fexofenadine (JUDITH) 180 mg tabletIndications:Aller gic rhinitis, unspecified seasonality, unspecified trigger TAKE 1 TABLET BY MOUTH EVERY DAY for allergies 90 Tab 3 09/10/2020 08/26/2021 fluticasone propion-salmeteroL (ADVAIR HFA) 230-21 mcg/actuation inhalerIndications:Panl obular emphysema (HCC-CMS) INHALE TWO PUFFS BY MOUTH TWICE DAILY as directed 3 Inhaler 3 11/12/2020 02/05/2022 HYDROcodone-acetaminoph en (NORCO) 7.5-325 mg per tabletIndications:Chron ic 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 Chronic pain Daily Max: 4 Tablets 112 Tablet 07/21/2021 08/26/2021 HYDROcodone-acetaminoph en (NORCO) 7.5-325 mg per tabletIndications:Chron ic pain syndrome,Chronic use of opiate for therapeutic purpose,Pain medication agreement Take 1 Tablet by mouth every 6 hours as needed for up to 8 days for Pain. For chronic pain Daily Max: 4 Tablets 20 Tablet 07/13/2021 08/26/2021 HYDROcodone-acetaminoph en (NORCO) 7.5-325 mg [...] for Wheezing. 3 mL 3 08/30/2019 11/23/2022 lancetsIndications:Impa ired glucose tolerance Brand:[employer], tests 2 times daily 100 Each 2 07/09/2021 08/25/2021 levalbuterol (XOPENEX HFA) 45 mcg/actuation inhalerIndications:Panl obular emphysema (HCC-CMS) INHALE TWO PUFFS BY MOUTH EVERY FOUR HOURS NEEDED for wheezing as directed. for shortness of breath 45 g 3 05/29/2021 06/30/2022 methocarbamoL (ROBAXIN) 500 mg tabletIndications:Chron ic pain syndrome take 2 tablets by mouth at bedtime 180 Tab 1 12/06/2019 02/05/2022 methylphenidate HCl (RITALIN;METHYLIN) 10 mg tabletIndications:Prima [...] Tablet 06/23/2021 08/26/2021 montelukast (SINGULAIR) 10 mg tabletIndications:Aller gic rhinitis, unspecified seasonality, unspecified trigger Take 1 Tab by mouth daily. For allergies 90 Tab 3 11/07/2020 09/23/2023 montelukast (SINGULAIR) 10 mg tabletIndications:Aller gic rhinitis, unspecified seasonality, unspecified trigger TAKE 1 TABLET BY MOUTH EVERY DAY for allergies 90 Tab 3 11/06/2020 11/24/2021 omeprazole (PRILOSEC) 40 mg capsuleIndications:Benja roesophageal reflux disease, esophagitis presence not specified Take 1 Cap by mouth daily. 90 Cap 3 08/30/2019 10/06/2023 ondansetron (ZOFRAN) 4 mg tabletIndications:Nause a TAKE ONE TABLET BY MOUTH DAILY NEEDED FOR NAUSEA 30 Tab 3 10/25/2020 10/09/2021 ONETOUCH DELICA PLUS LANCET 33 gauge misc 07/10/2021 024 pregabalin (LYRICA) 300 mg capsuleIndications:Answering Service Operator majo low back pain TAKE 1CAPSULE BY MOUTH TWICE DAILY. Daily max 2Caps(600mg) 60 capsule 06/26/2021 07/29/2021 promethazine (PHENERGAN) 25 mg tabletIndications:Nause a TAKE ONE TABLET BY MOUTH EVERY SIX HOURS NEEDED for nausea 30 Tablet 06/22/2021 10/09/2021 roflumilast (DALIRESP) 500 mcg tabletIndications:Chron ic obstructive pulmonary disease, unspecified COPD type (HCC-CMS) Take 1 Tab by mouth daily. 90 Tab 3 11/07/2020 11/24/2021 rOPINIRole (REQUIP) 2 mg tabletIndications:Restl ess legs syndrome TAKE 1 TABLET BY MOUTH NIGHTLY AT BEDTIME. 90 Tablet 07/07/2021 10/03/2021 SPIRIVA RESPIMAT 1.25 mcg/actuation inhalerIndications:Answering Service Operator majo obstructive pulmonary disease, unspecified COPD type (HCC-CMS) INHALE TWO PUFFS BY MOUTH DAILY DIRECTED 12 g 3 02/01/2020 01/27/2023 SUMAtriptan (IMITREX) 100 mg tabletIndications:Migra ine without status migrainosus, not intractable, unspecified migraine type tAKE 1 TABLET BY MOUTH ONCE NEEDED FOR UP TO 1 DOSE FOR MIGRAINE 9 Tablet 2 06/06/2021 09/04/2021 tamsulosin (FLOMAX) 0.4 mg capsuleIndications:Hesi tancy Take 1 Cap by mouth daily. 90 Cap 3 08/30/2019 01/27/2023 zolpidem (AMBIEN) 5 mg tabletIndications:Insom yesi, unspecified type TAKE ONE TABLET BY MOUTH NIGHTLY AT BEDTIME NEEDED *limit 1 tab daily 28 Tablet 07/15/2021 08/12/2021 documented as of this encounter Discharge Disposition Disposition Code Departure Means Destination Home or Self Care documented in this encounter Plan of Treatment Upcoming Encounters Date Type Department Care Team (Late st Contact Info) Description 06/29/2024 14:15 EDT Office Visit [facility] [address] [place] [address] Jean Munoz MD [address] [place] [phone] (work) documented as of this encounter Procedures Procedure Name Priority Date/Time Associated Diagnosis Comments RAD ONC MSQ TREATMENT SUMMARY Routine 08/11/2021 11:27 EST Malignant neoplasm of upper lobe, right bronchus or lung (HCC) (HCC-CMS) RAD ONC MSQ TREATMENT SUMMARY Routine 08/06/2021 10:30 EST Malignant neoplasm of upper lobe, right bronchus or lung (HCC) (HCC-CMS) RAD ONC MSQ TREATMENT SUMMARY Routine 08/05/2021 11:49 EST Malignant neoplasm of upper lobe, right bronchus or lung (HCC) (HCC-CMS) RAD ONC MSQ TREATMENT SUMMARY Routine 08/04/2021 10:37 EST Malignant neoplasm of upper lobe, right bronchus or lung (HCC) (HCC-CMS) RAD ONC MSQ TREATMENT SUMMARY Routine 08/01/2021 10:22 EST Malignant neoplasm of upper lobe, right bronchus or lung (HCC) (HCC-CMS) RAD ONC MSQ TREATMENT SUMMARY Routine 07/31/2021 10:11 EST Malignant neoplasm of upper lobe, right bronchus or lung (HCC) (HCC-CMS) RAD ONC MSQ TREATMENT SUMMARY Routine 07/30/2021 12:40 EST Malignant neoplasm of upper lobe, right bronchus or lung (HCC) (HCC-CMS) RAD ONC MSQ TREATMENT SUMMARY Routine 07/29/2021 12:36 EST Malignant neoplasm of upper lobe, right bronchus or lung (HCC) (HCC-CMS) documented in this encounter Results * RAD ONC MSQ TREATMENT SUMMARY (08/11/2021 11:27 EST) Treatment Site [facility] MOSAI Q RADIATION ONCOLOGY Course Number 1 MOSAIQ RADIATION ONCOLOGY Prescribed Fractional Dose 400 cGray MOSAIQ RADIATION ONCOLOGY Prescribed Total Dose 6,000 cGray MOSAIQ RADIATION ONCOLOGY Actual Fractions Delivered 8 MOSAIQ RADIATION ONCOLOGY Actual Session Delivered Dose 400 cGray MOSAIQ RADIATION ONCOLOGY Actual Total Dose 3,200 cGray MOSAIQ RADIATION ONCOLOGY Prescribed Technique VMAT MOSAIQ RADIATION ONCOLOGY Elapsed Days 13 MOSAIQ RADIATION ONCOLOGY Start Date 07/29/2021 MOSAIQ RADIATION ONCOLOGY Last Date 08/11/2021 MOSAIQ RADIATION ONCOLOGY Prescribed Number of Fractions 15 MOSAIQ RADIATION ONCOLOGY 08/11/2021 11:2 7 EST Provider Unknown RADIATION ONCOLOGY O JACKIE Performing Organization Address City/[facility]/ZIP Co de Phone Number MOSAIQ RADIATION ONCOLOGY * RAD ONC MSQ TREATMENT SUMMARY (08/06/2021 10:30 EST) Treatment Site [facility] MOSAI Q RADIATION ONCOLOGY Course Number 1 MOSAIQ RADIATION ONCOLOGY Prescribed Fractional Dose 400 cGray MOSAIQ RADIATION ONCOLOGY Prescribed Total Dose 6,000 cGray MOSAIQ RADIATION ONCOLOGY Actual Fractions Delivered 7 MOSAIQ RADIATION ONCOLOGY Actual Session Delivered Dose 400 cGray MOSAIQ RADIATION ONCOLOGY Actual Total Dose 2,800 cGray MOSAIQ RADIATION ONCOLOGY Prescribed Technique VMAT MOSAIQ RADIATION ONCOLOGY Elapsed Days 8 MOSAIQ RADIATION ONCOLOGY Start Date 07/29/2021 MOSAIQ RADIATION ONCOLOGY Last Date 08/06/2021 MOSAIQ RADIATION ONCOLOGY Prescribed Number of Fractions 15 MOSAIQ RADIATION ONCOLOGY 08/06/2021 10:3 0 EST Provider Unknown RADIATION ONCOLOGY Janet MEJIA Performing Organization Address City/[facility] Co de Phone Number MOSAIQ RADIATION ONCOLOGY * RAD ONC MSQ TREATMENT SUMMARY (08/05/2021 11:49 EST) Treatment Site [facility] MOSAI Q RADIATION ONCOLOGY Course Number 1 MOSAIQ RADIATION ONCOLOGY Prescribed Fractional Dose 400 cGray MOSAIQ RADIATION ONCOLOGY Prescribed Total Dose 6,000 cGray MOSAIQ RADIATION ONCOLOGY Actual Fractions Delivered 6 MOSAIQ RADIATION ONCOLOGY Actual Session Delivered Dose 400 cGray MOSAIQ RADIATION ONCOLOGY Actual Total Dose 2,400 cGray MOSAIQ RADIATION ONCOLOGY Prescribed Technique VMAT MOSAIQ RADIATION ONCOLOGY Elapsed Days 7 MOSAIQ RADIATION ONCOLOGY Start Date 07/29/2021 MOSAIQ RADIATION ONCOLOGY Last Date 08/05/2021 MOSAIQ RADIATION ONCOLOGY Prescribed Number of Fractions 15 MOSAIQ RADIATION ONCOLOGY 08/05/2021 11:4 9 EST Provider Unknown RADIATION ONCOLOGY O JACKIE MOSAIQ RADIATION ONCOLOGY * RAD ONC MSQ TREATMENT SUMMARY (08/04/2021 10:37 EST) Treatment Site [facility] MOSAI Q RADIATION ONCOLOGY Course Number 1 MOSAIQ RADIATION ONCOLOGY Prescribed Fractional Dose 400 cGray MOSAIQ RADIATION ONCOLOGY Prescribed Total Dose 6,000 cGray MOSAIQ RADIATION ONCOLOGY Actual Fractions Delivered 5 MOSAIQ RADIATION ONCOLOGY Actual Session Delivered Dose 400 cGray MOSAIQ RADIATION ONCOLOGY Actual Total Dose 2,000 cGray MOSAIQ RADIATION ONCOLOGY Prescribed Technique VMAT MOSAIQ RADIATION ONCOLOGY Elapsed Days 6 MOSAIQ RADIATION ONCOLOGY Start Date 07/29/2021 MOSAIQ RADIATION ONCOLOGY Last Date 08/04/2021 MOSAIQ RADIATION ONCOLOGY Prescribed Number of Fractions 15 MOSAIQ RADIATION ONCOLOGY 08/04/2021 10:3 7 EST Provider Unknown RADIATION ONCOLOGY O JACKIE MOSAIQ RADIATION ONCOLOGY * RAD ONC MSQ TREATMENT SUMMARY (08/01/2021 10:22 EST) Pathologist [facility] Treatment Site [facility] MOSAI Q RADIATION ONCOLOGY Course Number 1 MOSAIQ RADIATION ONCOLOGY Prescribed Fractional Dose 400 cGray MOSAIQ RADIATION ONCOLOGY Prescribed Total Dose 6,000 cGray MOSAIQ RADIATION ONCOLOGY Actual Fractions Delivered 4 MOSAIQ RADIATION ONCOLOGY Actual Session Delivered Dose 400 cGray MOSAIQ RADIATION ONCOLOGY Actual Total Dose 1,600 cGray MOSAIQ RADIATION ONCOLOGY Prescribed Technique VMAT MOSAIQ RADIATION ONCOLOGY Elapsed Days 3 MOSAIQ RADIATION ONCOLOGY Start Date 07/29/2021 MOSAIQ RADIATION ONCOLOGY Last Date 08/01/2021 MOSAIQ RADIATION ONCOLOGY Prescribed Number of Fractions 15 MOSAIQ RADIATION ONCOLOGY 08/01/2021 10:2 2 EST Provider Unknown RADIATION ONCOLOGY O JACKIE MOSAIQ RADIATION ONCOLOGY * RAD ONC MSQ TREATMENT SUMMARY (07/31/2021 10:11 EST) Pathologist [facility] MOSAI Q RADIATION ONCOLOGY Course Number 1 MOSAIQ RADIATION ONCOLOGY Prescribed Fractional Dose 400 cGray MOSAIQ RADIATION ONCOLOGY Prescribed Total Dose 6,000 cGray MOSAIQ RADIATION ONCOLOGY Actual Fractions Delivered 3 MOSAIQ RADIATION ONCOLOGY Actual Session Delivered Dose 400 cGray MOSAIQ RADIATION ONCOLOGY Actual Total Dose 1,200 cGray MOSAIQ RADIATION ONCOLOGY Prescribed Technique VMAT MOSAIQ RADIATION ONCOLOGY Elapsed Days 2 MOSAIQ RADIATION ONCOLOGY Start Date 07/29/2021 MOSAIQ RADIATION ONCOLOGY Last Date 07/31/2021 MOSAIQ RADIATION ONCOLOGY Prescribed Number of Fractions 15 MOSAIQ RADIATION ONCOLOGY 07/31/2021 10:1 1 EST Provider Unknown RADIATION ONCOLOGY O JACKIE Performing Organization Address City/[facility]/ZIP Co de Phone Number MOSAIQ RADIATION ONCOLOGY * RAD ONC MSQ TREATMENT SUMMARY (07/30/2021 12:40 EST) Pathologist [facility] Treatment Site [facility] MOSAI Q RADIATION ONCOLOGY Course Number 1 MOSAIQ RADIATION ONCOLOGY Prescribed Fractional Dose 400 cGray MOSAIQ RADIATION ONCOLOGY Prescribed Total Dose 6,000 cGray MOSAIQ RADIATION ONCOLOGY Actual Fractions Delivered 2 MOSAIQ RADIATION ONCOLOGY Actual Session Delivered Dose 400 cGray MOSAIQ RADIATION ONCOLOGY Actual Total Dose 800 cGray MOSAIQ RADIATION ONCOLOGY Prescribed Technique VMAT MOSAIQ RADIATION ONCOLOGY Elapsed Days 1 MOSAIQ RADIATION ONCOLOGY Start Date 07/29/2021 MOSAIQ RADIATION ONCOLOGY Last Date 07/30/2021 MOSAIQ RADIATION ONCOLOGY Prescribed Number of Fractions 15 MOSAIQ RADIATION ONCOLOGY 07/30/2021 12:4 0 EST Provider Unknown RADIATION ONCOLOGY O JACKIE MOSAIQ RADIATION ONCOLOGY * RAD ONC MSQ TREATMENT SUMMARY (07/29/2021 12:36 EST) Treatment Site [facility] MOSAI Q RADIATION ONCOLOGY Course Number 1 MOSAIQ RADIATION ONCOLOGY Prescribed Fractional Dose 400 cGray MOSAIQ RADIATION ONCOLOGY Prescribed Total Dose 6,000 cGray MOSAIQ RADIATION ONCOLOGY Actual Fractions Delivered 1 MOSAIQ RADIATION ONCOLOGY Actual Session Delivered Dose 400 cGray MOSAIQ RADIATION ONCOLOGY Actual Total Dose 400 cGray MOSAIQ RADIATION ONCOLOGY Prescribed Technique VMAT MOSAIQ RADIATION ONCOLOGY Elapsed Days 0 MOSAIQ RADIATION ONCOLOGY Start Date 07/29/2021 MOSAIQ RADIATION ONCOLOGY Last Date 07/29/2021 MOSAIQ RADIATION ONCOLOGY Prescribed Number of Fractions 15 MOSAIQ RADIATION ONCOLOGY 07/29/2021 12:3 6 EST Provider Unknown RADIATION ONCOLOGY O RDERABLES Performing Organization Address City/State/[facility] Co de Phone Number MOSAIQ RADIATION ONCOLOGY documented in this encounter [...] colon documented in this encounter Care Teams Fire Management Specialist Relationship Specialty Start Date End Date Jean Munoz MD [address] [place] [phone] PCP - General 12/31/08 Manny Rizzo MD [address] [place] [phone] 04/20/10 Afia Valle MD [address] [place] [address] [address] [place] [phone] Care Team Radiation Oncology 07/02/21 documented as of this encounter
--- OUTSIDE RECORDS SUMMARY | 2024-06-10 07:11 | XMS_ITS | Encounter Summary ---
Author Organization [facility] Address [address] [place] [address] Care Team Providers Care Geochemical Manager Name Role Phone Jean Munoz MD Primary Care Provider Manny Rizzo MD Unavailable Afia Valle MD Unavailable [phone] Encounter Details Date Type Department Care Team (Latest Contact Info) Description 07/29/2021 12:18 EST - 07/29/2021 23:59 EST Hospital Encounter [facility] Radiation Oncology - Main [place] [address], [place] [phone] [facility] Resource, Platform Discharge Disposition: Home or [...] stripsIndications:Arpita richter glucose tolerance 1 Strip by [facility] (non-drug; combo route) route 2 times daily. [...] 02/05/2022 HYDROcodone-acetaminop hen (NORCO) 7.5-325 mg per tabletIndications:Surgical Resident majo 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 Chronic pain Daily Max: 4 Tablets 112 Tablet 07/21/2021 08/26/2021 HYDROcodone-acetaminop hen (NORCO) 7.5-325 mg per tabletIndications:Surgical Resident majo pain syndrome,Chronic use of opiate for therapeutic purpose,Pain medication agreement Take 1 Tablet by mouth every 6 hours as needed for up to 8 days for Pain. For chronic pain Daily Max: 4 Tablets 20 Tablet 07/13/2021 08/26/2021 HYDROcodone-acetaminop hen (NORCO) 7.5-325 mg per tabletIndications:Surgical Resident majo pain syndrome,Chronic use of opiate for [...] mg base)/3 mL nebulizer solutionIndications:Pa nlobular emphysema ([facility]) Take 3 mL by nebulization every 4 hours as needed for Wheezing. 3 mL 3 08/30/2019 11/23/2022 lancetsIndications:Imp aired glucose tolerance Brand:one touch [facility], tests 2 times daily 100 Each 2 07/09/2021 08/25/2021 levalbuterol (XOPENEX HFA) 45 mcg/actuation inhalerIndications:Jarquin lobular emphysema (HCC-CMS) INHALE TWO PUFFS BY MOUTH EVERY FOUR HOURS NEEDED for wheezing as directed. for shortness of breath 45 g 3 05/29/2021 06/30/2022 methocarbamoL (ROBAXIN) 500 mg tabletIndications:Surgical Resident majo pain syndrome take 2 tablets by [...] Tablet 06/22/2021 10/09/2021 roflumilast (DALIRESP) 500 mcg tabletIndications:Surgical Resident majo obstructive pulmonary disease, unspecified COPD type [...] EDT Office Visit [facility] [address] [place] [address] Jean Munoz MD [address] [place] [phone] documented as of this encounter Visit Diagnoses Not on filedocumented in this encounter Care Teams Geochemical Manager Relationship Specialty Start Date End Date Jean Munoz MD [address] [place] [address] PCP - General 12/31/08 Manny Rizzo MD [address] [place] [phone] 04/20/10 Afia Valle MD [address] [facility] 2 [place] [address] Care Team Radiation Oncology 07/02/21 documented as of this encounter
--- OUTSIDE RECORDS SUMMARY | 2024-06-10 07:11 | XMS_ITS | Encounter Summary ---
Author Organization [facility] Address [address] [place] [address] Care Team Providers Care Radio Time Buyer Name Role Phone Jean Munoz MD Primary Care Provider Manny Rizzo MD Unavailable Reason for Visit * Reason Onset Date Comments Social Work 06/24/2021 error Encounter Details Date Type Department Care Team (Late st Contact Info) Description 06/24/2021 Telephone [facility] H[facility]ology [facility] - [facility] [address] [place] [address] Kavita Harper Social Work (error) Social History Tobacco Use Types Packs/Day Years [...] the money to buy more. Often true 08/12/20 21 Within the past 12 months, t [...] encounter Miscellaneous Notes * Telephone Encounter - Kavita Harper - 06/24/2021 1207 EDT error documented in this encounter Plan of Treatment Upcoming Encounters Date Type Department Care Team (Late st Contact Info) Description 06/29/2024 14:15 EDT Office Visit [facility] [address] [place] [address] Jean Munoz MD [address] [place] [address] documented as of this encounter Visit Diagnoses Not on filedocumented in this encounter Care Teams Radio Time Buyer Relationship Specialty Start Date End Date Jean Munoz MD [address] [place] [phone] PCP - General 12/31/08 Manny Rizzo MD [address] [place] [address] 04/20/10 documented as of this encounter
--- OUTSIDE RECORDS SUMMARY | 2024-06-10 07:11 | XMS_ITS | Encounter Summary ---
Author Organization [facility] Address [address] [place] [address] Care Team Providers Care Electrical Service Technician Name Role Phone Jean Munoz MD Primary Care Provider Manny Rizzo MD Unavailable Encounter Details Date Type Department Care Team (Late st Contact Info) Description 06/23/2021 Documentation Visit [facility] Hematology & Oncology - [facility] [address] [place] [address] Kavita Harper Social History Tobacco Use Types Packs/Day Years [...] as of this encounter Progress Notes * Kavita Harper - 06/23/2021 0706 EDT PN connected with pt during [facility]. Pt is here with a friend (Shell) and pt just finished meetingwith Dr. Valle to discuss treatment options for a newly diagnosed NSCLCA. Pt shared that she lives in [place] with her . She doesn't work and reports that she's been on disability for 10 years. Prior to that she worked several jobs including [employer]. Pt's works and pt is worried about transportation if she has multiple appointments. Dr. Valle is recommending 3-5 radiation treatments but if pt goes on a study, she could have additional appointments/treatments. I made her aware of medicaid transportation services through [facility] and that either myself/[employer] SW would help her access rides when/if needed. Pt shared that she has medicaid but isn't sure why she hasn't qualified for medicare because of herdisability. PN asked several questions to try and understand if pt is on SSI/SSDI but pt wasn't clear. Reports she's called [employer] and has been told different information each time she calls. PN shared that a SW could help her call [employer] if she would like assistance with getting this information. Pt would be interested. Pt also shared that she needs some bottom teeth extracted but cannot afford to do this. I made pt aware that medicaid increased their allotted dental amount per year and that she could likely get extractions covered but would need to be seen by a dentist first. And, then referred to an oral surgeon to determine a tx plan. Estimates would need to be sent to medicaid for service to be performed and covered. Pt agreed that getting through her radiation treatment is priority and she will look into this after her treatment is finished. Plan- I gave pt my business card and I will make a referral to FADUMO Rodrigues and ask her to touch basewith pt when she starts tx. documented in this encounter Plan of Treatment Upcoming Encounters Date Type Department Care Team (Late st Contact Info) Description 06/29/2024 14:15 EDT Office Visit [facility] [address] [place] [address] Jean Munoz MD [address] [place] [address] documented as of this encounter Visit Diagnoses Not on filedocumented in this encounter Care Teams Electrical Service Technician Relationship Specialty Start Date End Date Jean Munoz MD [address] [place] [phone] PCP - General 12/31/08 Manny Rizzo MD [address] [place] [phone] 04/20/10 documented as of this encounter
--- OUTSIDE RECORDS SUMMARY | 2024-06-10 07:11 | XMS_ITS | Encounter Summary ---
Author Organization [facility] Address [address] [place] [address] Care Team Providers Care Lighting Engineering Technician Name Role Phone Jean Munoz MD Primary Care Provider Manny Rizzo MD Unavailable Reason for Visit * Reason Comments Other Encounter Details Date Type Department Care Team (Late st Contact Info) Description 06/24/2021 [facility] 3 [place] [address] Jean Munoz MD [address] [place] [phone] Other Social History Tobacco Use Types [...] End Da te pregabalin (LYRICA) 300 mg capsuleIndications:Chroni c low back pain TAKE 1CAPSULE BY MOUTH TWICE DAILY. Daily max 2Caps(600mg) 60 capsule 06/26/2021 07/29/2021 documented in this encounter Miscellaneous Notes * Telephone Encounter - Armand Thornton RN - 06/26/2021 0899 EDT Images from the original note were not included. Requested Prescriptions Pending Prescriptions Disp Refills ??? pregabalin (LYRICA) 300 mg capsule [Pharmacy Med Name: Pregabalin Oral Capsule 300 MG] 0 Sig: TAKE 1CAPSULE BY MOUTH TWICE DAILY. Daily max 2Caps(600mg) Preferred Pharmacy: [facility] Is patient out of medication? Unknown Last Refill Date: 05/30/21 Last Visit Date with Ordering Provider: 06/25/21 Next Non-Acute Visit Date Scheduled with Care Team: No. VPMS check: Routing to PCP. ARMAND THORNTON RN 06/26/2021 8:54 documented in this encounter Plan of Treatment Upcoming Encounters Date Type Department Care Team (Late st Contact Info) Description 06/29/2024 14:15 EDT Office Visit [facility] Family Medicine [facility] [address] [place] [address] Jean Munoz MD [address] [place] [address] documented as of this encounter [...] 300 mg capsuleIndications:Chron ic low back pain Take 1 capsule by mouth 2 times daily. Daily Max: 600 mg 05/30/2021 06/26/2021 documented as of this encounter Care Teams Lighting Engineering Technician Relationship Specialty Start Date End Date Jean Munoz MD [address] [place] [address] PCP - General 12/31/08 Manny Rizzo MD [address] [place] [phone] 04/20/10 documented as of this encounter
--- OUTSIDE RECORDS SUMMARY | 2024-06-10 07:11 | XMS_ITS | Encounter Summary ---
Author Organization [facility] Address [address] [place] [address] Care Team Providers Care Crop Duster Helper Name Role Phone Jean Munoz MD Primary Care Provider Manny Rizzo MD Unavailable Afia Valle MD Unavailable Reason for Referral * (Routine/Next Available) - New Request Specialty Diagnoses / Procedures Referred By Alex weldon Referred To Contact Diagnoses Malignant neoplasm of upper lobe, right bronchus or lung (HCC-CMS) Procedures CT SIM EXAM Afia Valle MD [address] [facility] 2 [place] [address] [facility] Referral ID Status Reason Start Date Expiration Date V isits Requested Visits Authorized [id number] New Request 07/08/2021 1 1 Reason for Visit * (Routine/Next Available) - New Request Specialty Diagnoses / Procedures Referred By Contcecille weldon Referred To Contact Diagnoses Malignant neoplasm of upper lobe, right bronchus or lung (HCC-CMS) Procedures CT SIM EXAM Afia Valle MD [address] [place] [address] [address] [place] [address] [facility] Referral ID Status Reason Start Date Expiration Date V isits Requested Visits Authorized [id number] New Request 07/08/2021 1 1 Encounter Details Date Type Department Care Team (Latest Contact Info) Description 07/15/2021 9:33 EDT - 07/15/2021 23:[address] 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 [address] [place], [place] [phone] Jean Munoz MD [address] [place] [address] documented as of this encounter Procedures Procedure Name Priority Date/Time Associated Diagnosis Comments CT SIM EXAM Routine 07/15/2021 10:57 EDT Malignant neoplasm of upper lobe, right bronchus or lung (HCC) ([facility]) documented in this encounter Results * CT SIM EXAM (07/15/2021 10:57 EDT) Narrative 07/15/2021 10:57 EDT This is a non-reportable exam. Afia Valle MD IMG OTHER IMAG ING ORDERABLES documented in this encounter Visit Diagnoses Diagnosis Malignant neoplasm of upper lobe, right bronchus or lung ([facility]) Screening for osteoporosis- Primary Special screening for osteoporosis Primary narcolepsy without cataplexy Chronic pain syndrome Chronic low back pain Lumbago Chronic use of opiate for therapeutic purpose Pain medication agreement Encounter for long-term (current) use of other medications Screen for colon cancer Special screening for malignant neoplasms, colon documented in this encounter Care Teams Crop Duster Helper Relationship Specialty Start Date End Date Jean Munoz MD [address] [place] [address] PCP - General 12/31/08 Manny Rzizo MD [address] [place] [phone] 04/20/10 Afia Valle MD [address] [facility], Level [address] [place] [phone] Care Team Radiation Oncology 07/02/21 documented as of this encounter
--- OUTSIDE RECORDS SUMMARY | 2024-06-10 07:11 | XMS_ITS | Encounter Summary ---
Author Organization [facility] Address [address] [place] [address] Care Team Providers Care Commissary Assistant Name Role Phone Jean Munoz MD Primary Care Provider Manny Rizzo MD Unavailable Afia Valle MD Unavailable Jesi Leong [employer] DEPLOYMENT LEAD Unavailable SaloJesi shanks W[employer] DE[employer]MENT LEAD Unavailable [phone] Reason for Visit * Reason Comments Other Encounter Details Date Type Department Care Team (Late st Contact Info) Description [facility] [address] [place] [address] Jean Munoz MD [address] [place] [phone] Other Social History Tobacco Use Types [...] NEEDED for nausea 30 Tablet 06/22/2021 10/09/2021 documented in this encounter Miscellaneous Notes * Telephone Encounter - Liset Gonzalez RN - 06/22/2021 1430 EDT Last rf of Phenergan 25 mg Take (1) tab every (6) hrs/prn/nausea #30 with 3 rf on 10/25/20 Last ov with RL 04/24/21 (chronic pain + 13 more) Return in about 2 months (around 07/08/2021) for SERA video. Patient education was direct. Barriers were assessed and addressed as needed. documented in this encounter Plan of Treatment Upcoming Encounters Date Type Department Care Team (Late st Contact Info) Description 06/29/2024 14:15 EDT Office Visit [facility] Family Medicine [facility] [address] [place], [place] [phone] Jean Munoz MD [address] [place] [address] documented as of this [...] TABLET BY MOUTH EVERY SIX HOURS NEEDED FOR NAUSEA 10/25/2020 06/22/2021 documented as of this encounter Additional Health Concerns Infection Onset Date Last Indicated Resolved Time R/O COVID-19 05/15/2022 05/15/2022 05/20/2022 22:1 6 EDT R/O COVID-19 11/14/2022 11/14/2022 11/14/2022 19:1 6 EST documented as of this encounter Care Teams Commissary Assistant Relationship Specialty Start Date End Date Jean Munoz MD [address] [place] [phone] PCP - General 12/31/08 Manny Rizzo MD [address] [place] [phone] 04/20/10 Afia Valle MD [address] [place] [address] [address] [place] [phone] Care Team Radiation Oncology 07/02/[address] [facility] [address] [place] [phone] Research Nurse 12/24/21 09/20/[address] [facility] [address] [place] [phone] Behavioral Health Research NurseManager Respiratory Care Care 10/19/22 01/23/24 documented as of this encounter
--- OUTSIDE RECORDS SUMMARY | 2024-06-10 07:11 | XMS_ITS | Encounter Summary ---
Author Organization [facility] Address [address] [place] [address] Care Team Providers Care Sorting Machine Attendant Name Role Phone Jean Munoz MD Primary Care Provider Manny Rizzo MD Unavailable Afia Valle MD Unavailable Encounter Details Date Type Department Care Team (Latest Contact Info) Description 07/31/2021 9:54 EST - 07/31/2021 23:59 EST Hospital Encounter [facility] Radiation Oncology - Main [place] [address] [place], [place] [phone] [facility] Resource, Platform Discharge Disposition: Home or Self [...] stripsIndications:Arpita richter glucose tolerance 1 Strip by [facility] (non-drug; combo route) route 2 times daily. [...] vial 11/11/2018 10/06/2023 doxycycline (VIBRA-TABS) 100 mg tabletIndications:Ealine cea TAKE 1 TABLET BY MOUTH EVERY [...] 02/05/2022 HYDROcodone-acetaminop hen (NORCO) 7.5-325 mg per tabletIndications:Machine Tool Rebuilder majo 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 Chronic pain Daily Max: 4 Tablets 112 Tablet 07/21/2021 08/26/2021 HYDROcodone-acetaminop hen (NORCO) 7.5-325 mg per tabletIndications:Machine Tool Rebuilder majo pain syndrome,Chronic use of opiate for therapeutic purpose,Pain medication agreement Take 1 Tablet by mouth every 6 hours as needed for up to 8 days for Pain. For chronic pain Daily Max: 4 Tablets 20 Tablet 07/13/2021 08/26/2021 HYDROcodone-acetaminop hen (NORCO) 7.5-325 mg per tabletIndications:Machine Tool Rebuilder majo pain syndrome,Chronic use of opiate for [...] mg base)/3 mL nebulizer solutionIndications:Pa nlobular emphysema ([facility]) Take 3 mL by nebulization every 4 hours as needed for Wheezing. 3 mL 3 08/30/2019 11/23/2022 lancetsIndications:Imp aired glucose tolerance Brand:one touch [employer], tests 2 times daily 100 Each 2 07/09/2021 08/25/2021 levalbuterol (XOPENEX HFA) 45 mcg/actuation inhalerIndications:Jarquin lobular emphysema (HCC-CMS) INHALE TWO PUFFS BY MOUTH EVERY FOUR HOURS NEEDED for wheezing as directed. 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 take 2 tablets by [...] Tablet 06/22/2021 10/09/2021 roflumilast (DALIRESP) 500 mcg tabletIndications:Machine Tool Rebuilder majo obstructive pulmonary disease, unspecified COPD type [...] Visit [facility] 3 [place] [address] Jean Munoz MD [address] [place] [phone] documented as of this encounter Visit Diagnoses Not on filedocumented in this encounter Care Teams Sorting Machine Attendant Relationship Specialty Start Date End Date Jean Munoz MD [address] [place] [phone] PCP - General 12/31/08 Manny Rizzo MD [address] [place] [phone] 04/20/10 Afia Valle MD 111 [facility] 2 [place] [address] Care Team Radiation Oncology 07/02/21 documented as of this encounter
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
--- OUTSIDE RECORDS SUMMARY | 2024-06-10 07:11 | XMS_ITS | Encounter Summary ---
Author Organization [facility] Address [address] [place] [address] Care Team Providers Care C D Reactor Operator Name Role Phone Jean Munoz MD Primary Care Provider Manny Rizzo MD Unavailable Afia Valle MD Unavailable Reason for Visit * Reason Onset Date Comments Medications Refill 07/08/2021 Blood Sugar Problem 07/08/2021 Encounter Details Date Type Department Care Team (Late st Contact Info) Description 07/08/2021 Refill [facility] [address] [place] [address] Jean Munoz MD [address] [place] [phone] Medications Refill; Blood Sugar Problem Social History Tobacco Use Types Packs/Day [...] Dispensed Refills Start Date End Da te blood glucose (BLOOD GLUCOSE TEST) test stripsIndications:Impaired glucose tolerance 1 Strip by misc (non-drug; combo route) route 2 times daily. 100 Each 1 07/09/2021 11/06/2022 lancetsIndications:Impaire d glucose tolerance Brand:one touch ultra, tests 2 times daily 100 Each 2 07/09/2021 08/25/2021 documented in this encounter Miscellaneous Notes * Telephone Encounter - Armand Thornton RN - 07/21/2021 1422 EST Spoke with patient and relayed below message from provider. -Pt stating she will go next Sunday 07/29 to get her blood work completed as she will already be at the hospital that day -Appt made for televideo for chronic pain f/u per last OV note. Patient verbalized understanding and agrees with plan. No barriers to learning identified. ARMAND THORNTON RN 07/21/2021 14:26 * Telephone Encounter - Carmita Franklin - 07/21/2021 1356 EST Reason for Call: Returning Nurse's call RE: Nurse not available at the time of this call. Patient would like a call back. * Telephone Encounter - Armand Thornton RN - 07/21/2021 1241 EST [facility] - need to discuss below message from RL with pt. ARMAND THORNTON RN 07/21/2021 12:41 * Telephone Encounter - Fani Dickens RN - 07/10/2021 0857 EDT [facility]. FANI SPANGLER RN 07/10/2021 8:57 * Telephone Encounter - Jean Munoz MD - 07/09/2021 2010 EDT Please have her get labs as ordered (they were ordered in April but not done, so I reordered them). Will likely start metformin but needs labs first. Please let her know, thanks. * Telephone Encounter - Cathy Grullon - 07/08/2021 1122 EDT Medication(s) Requested: Lancets and test strips Preferred Pharmacy: [facility] Is patient out of medication? No Last Refill Date: Last Visit Date with Ordering Provider: 04/24/2021 Next Non-Acute Visit Date Scheduled with Care Team: Visit date not found Patient also mentions that her sugars have been high lately. Anywhere from 190- 380. Patient says shes not sure whats going , but feels off Cathy Grullon 07/08/2021 11:26 documented in this encounter Plan of Treatment Upcoming Encounters Date Type Department Care Team (Late st Contact Info) Description 06/29/2024 14:15 EDT Office Visit [facility] [address] [place] [address] Jean Munoz MD [address] [place] [phone] documented as of this encounter Visit Diagnoses Diagnosis Chronic fatigue- Primary Other malaise and fatigue Impaired glucose tolerance Impaired glucose tolerance test Screening for osteoporosis- [...] (non-drug; combo route) route 2 times daily. Reorder 07/05/2018 07/08/2021 lancetsIndications:Impair ed glucose tolerance Brand:one touch ultra, tests 2 times daily Reorder 07/05/2018 07/08/2021 documented as of this encounter Care Teams C D Reactor Operator Relationship Specialty Start Date End Date Jean Munoz MD [address] [place] [phone] PCP - General 12/31/08 Manny Rizzo MD [address] [place] [phone] 04/20/10 Afia Valle MD [address] [facility], [address] [place] [address] Care Team Radiation Oncology 07/02/21 documented as of this encounter
--- OUTSIDE RECORDS SUMMARY | 2024-06-10 07:11 | XMS_ITS | Encounter Summary ---
Author Organization [facility] Address [address] [place] [address] Care Team Providers Care Gear Coding Machine Operator Name Role Phone Jean Munoz MD Primary Care Provider Manny Rizzo MD Unavailable Afia Valle MD Unavailable Encounter Details Date Type Department Care Team (Late st Contact Info) Description 07/22/2021 Documentation Visit [facility] Radiation Oncology - Main [place] [address] [place], [place] [phone] Jorge Rivas Social History Tobacco Use Types [...] encounter Progress Notes * Jorge Rivas - 07/22/2021 6315 EST GEAR KEEPER NOTE: Telephone conversation with pt to check in. Pt still working on setting up rides for all treatments. Notes she has most of them covered and will get drivers for all of them. She declines needing my support with setting up transportation. Pt agreed to contact me if something changes. FADUMO DUNHAM documented in this encounter Plan of Treatment Upcoming Encounters Date Type Department Care Team (Late st Contact Info) Description 06/29/2024 14:15 EDT Office Visit [facility] [address] [place] [address] Jean Munoz MD [address] [place] [phone] documented as of this encounter Visit Diagnoses Not on filedocumented in this encounter Care Teams Gear Coding Machine Operator Relationship Specialty Start Date End Date Jean Munoz MD [address] [place] [phone] PCP - General 12/31/08 Manny Rizzo MD [facility] [place] [address] 04/20/10 Afia Valle MD [address] [place] [address] [address] [place] [address] Care Team Radiation Oncology 07/02/21 documented as of this encounter
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
--- OUTSIDE RECORDS SUMMARY | 2024-06-10 07:11 | XMS_ITS | Encounter Summary ---
Author Organization [facility] Address [address] [place] [address] Care Team Providers Care Weather Forecaster Name Role Phone Jean Munoz MD Primary Care Provider Manny Rizzo MD Unavailable Afia Valle MD Unavailable Encounter Details Date Type Department Care Team (Latest Contact Info) Description 07/30/2021 12:14 EST - 07/30/2021 23:59 EST Hospital Encounter [facility] Radiation Oncology - [facility] [place] [address], [place] [id number] [facility] Resource, Platform Discharge Disposition: Home or [...] stripsIndications:Arpita richter glucose tolerance 1 Strip by [facility] (non-drug; combo route) route 2 times daily. [...] 02/05/2022 HYDROcodone-acetaminop hen (NORCO) 7.5-325 mg per tabletIndications:Chemistry Instructor majo 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 Chronic pain Daily Max: 4 Tablets 112 Tablet 07/21/2021 08/26/2021 HYDROcodone-acetaminop hen (NORCO) 7.5-325 mg per tabletIndications:Chemistry Instructor majo pain syndrome,Chronic use of opiate for therapeutic purpose,Pain medication agreement Take 1 Tablet by mouth every 6 hours as needed for up to 8 days for Pain. For chronic pain Daily Max: 4 Tablets 20 Tablet 07/13/2021 08/26/2021 HYDROcodone-acetaminop hen (NORCO) 7.5-325 mg per tabletIndications:Chemistry Instructor majo pain syndrome,Chronic use of opiate for [...] mL nebulizer solutionIndications:Pa nlobular emphysema ([facility]) Take 3 mL by nebulization every 4 hours as needed for Wheezing. 3 mL 3 08/30/2019 11/23/2022 lancetsIndications:Imp aired glucose tolerance Brand:one touch [employer], tests 2 times daily 100 Each 2 07/09/2021 08/25/2021 levalbuterol (XOPENEX HFA) 45 mcg/actuation inhalerIndications:Jarquin lobular emphysema (HCC-CMS) INHALE TWO PUFFS BY MOUTH EVERY FOUR HOURS NEEDED for wheezing as directed. for shortness of breath 45 g 3 05/29/2021 06/30/2022 methocarbamoL (ROBAXIN) 500 mg tabletIndications:Chemistry Instructor majo pain syndrome take 2 tablets by [...] Tablet 06/22/2021 10/09/2021 roflumilast (DALIRESP) 500 mcg tabletIndications:Chemistry Instructor majo obstructive pulmonary disease, unspecified COPD type [...] Description 06/29/2024 14:15 EDT Office Visit [facility] [place] [place] [address] [place] [address] Jean Munoz MD [address] [place] [phone] documented as of this encounter Visit Diagnoses Not on filedocumented in this encounter Care Teams Weather Forecaster Relationship Specialty Start Date End Date Jean Munoz MD [address] [place] [address] PCP - General 12/31/08 Manny Rizzo MD [address] [place] [phone] 04/20/10 Afia Valle MD [address] [facility] [address] [place] [address] Care Team Radiation Oncology 07/02/21 documented as of this encounter
--- OUTSIDE RECORDS SUMMARY | 2024-06-10 07:11 | XMS_ITS | Encounter Summary ---
Author Organization [facility] Address [address] [place] [address] Care Team Providers Care Project Engineering Manager Name Role Phone Jean Munoz MD Primary Care Provider Manny Rizzo MD Unavailable Reason for Visit * Reason Comments Lung Cancer * Consult (Routine/Next Available) - New Request Specialty Diagnoses / Procedures Referred By Alex weldon Referred To Contact Hematology and Oncology Diagnoses Malignant neoplasm of hilus of lung, unspecified laterality (HCC-CMS) Lloyd Diana MD MPH [address] [facility], [address] [place] [address] Referral ID Status Reason Start Date Expiration Date Visits Requested Visits Authorized [id number] New Request Specialty Services Required 1 1 1 Encounter Details Date Type Department Care Team (Late st Contact Info) Description 06/30/2021 14:00 EDT Tumor Board [facility] Cancer Center Hematology & Oncology - [address] [phone] Primary cancer of right upper lobe of [...] as of this encounter Progress Notes * Sebastián Reza, RN - 06/30/2021 1400 EDT Transdisciplinary team presenting case: Lung Date of Presentation: 06/30/2021 Patient Name: Liset Viera Diagnosis: 1. Primary cancer of right upper lobe of lung (HCC-CMS) (HCC) AJCC Stage: cT1b, cN1 Clinical Question: ?n1 disease Radiology Question:? n1 disease on pet Pathology Question: No need to review Prospective Presentation? Prospective Presentation: No Clinical Trial Option Discussed? Clinical Trials: No Treatment Guidelines Discussed? Yes Attending Services: Medical Oncology and Radiation. Tumor Board Review and Discussion: Radiology: Radiology review notes: consistent with reports Note: this interpretation is subject to the limitations of the tumor board setting and is simply advisory in nature. Pathology: Pathology review notes: Consistent with reports Note: this interpretation is subject to the limitations of the tumor board setting and is simply advisory in nature. Advisory Recommendations: Modified radiation to include presume N1 disease. [facility]. These advisory recommendations are based on the limited information available and presented during the tumor board. This advice does not supersede or substitute for the treating physicians??? physical assessment findings and clinical judgement. I was present at the Tumor Board conference when this patient was discussed. I have reviewed and edited the Tumor Board note as needed to reflect the general discussion of our multidisciplinary conference members. documented in this encounter Plan of Treatment Upcoming Encounters Date Type Department Care Team (Late st Contact Info) Description 06/29/2024 14:15 EDT Office Visit [address] [address] Jean Munoz MD [address] [place] [address] Scheduled Referrals Name Type Priority Associated Diagnoses Order Schedule AMB CONSULT/FOLLOW UP TUMOR BOARD Outpatient Referral Routine/Next Available Malignant neoplasm of hilus of lung, unspecified laterality (HCC-CMS) (HCC) (HCC-CMS) Ordered: 06/26/2021 documented as of this encounter Visit Diagnoses [...] colon documented in this encounter Care Teams Project Engineering Manager Relationship Specialty Start Date End Date Jean Munoz MD [address] [place] [address] PCP - General 12/31/08 Manny Rizzo MD [address] [place] [phone] 04/20/10 documented as of this encounter
--- OUTSIDE RECORDS SUMMARY | 2024-06-10 07:11 | XMS_ITS | Encounter Summary ---
Author Organization [facility] Address [address] [place] [address] Care Team Providers Care Lead Mechanical Engineer Name Role Phone Jean Munoz MD Primary Care Provider Manny Rizzo MD Unavailable Afia Valle MD Unavailable [phone] Jesi Leong MECHANICAL OXIDIZER Unavailable [phone] SaloJesi shanks MECHANICAL OXIDIZER Unavailable Reason for Visit * Reason Comments Other Encounter Details Date Type Department Care Team (Late st Contact Info) Description [facility] [address] [place] [address] Jean Munoz MD [address] [place] [phone] Other Social History Tobacco Use Types [...] NIGHTLY AT BEDTIME. 90 Tablet 07/07/2021 10/03/2021 documented in this encounter Miscellaneous Notes * Telephone Encounter - Yadira Mccauley RN - 07/07/2021 1019 EDT rOPINIRole (REQUIP) 2 mg tablet [[id number]] ?? Order Details Dose, Route, Frequency: As Directed Dispense Quantity: 90 Tablet Refills: 3 ?? Sig: TAKE 1 TABLET BY MOUTH NIGHTLY AT BEDTIME ?? Start Date: 07/24/19 End Date: -- Written Date: 07/24/19 Expiration Date: -- ?? Next visit- none Last visit- 06/25/21 documented in this encounter Plan of Treatment Upcoming Encounters Date Type Department Care Team (Late st Contact Info) Description 06/29/2024 14:15 EDT Office Visit [facility] [address] [place], [place] [phone] Jean Munoz MD [address] [place] [address] documented as of this encounter [...] 1 TABLET BY MOUTH NIGHTLY AT BEDTIME 07/24/2019 07/07/2021 documented as of this encounter Additional Health Concerns Infection Onset Date Last Indicated Resolved Time R/O COVID-19 05/15/2022 05/15/2022 05/20/2022 22:1 6 EDT R/O COVID-19 11/14/2022 11/14/2022 11/14/2022 19:1 6 EST documented as of this encounter Care Teams Lead Mechanical Engineer Relationship Specialty Start Date End Date Jean Munoz MD [address] [place] [address] PCP - General 12/31/08 Manny Rizzo MD [address] [place] [phone] 04/20/10 Afia Valle MD [address] [place] [address] [address] [place] [phone] Care Team Radiation Oncology 07/02/21 Jesi Leong [facility] [address] [place] [phone] Client Onboarding Analyst 12/24/21 09/20/22 Jesi Leong [facility] [address] [place] [phone] Behavioral Health Client Onboarding AnalystHand [employer] 10/19/22 01/23/24 documented as of this encounter
--- OUTSIDE RECORDS SUMMARY | 2024-06-10 07:11 | XMS_ITS | Encounter Summary ---
Author Organization [facility] Address [address] [place] [address] Care Team Providers Care Improvement Coordinator Name Role Phone Jean Munoz MD Primary Care Provider Manny Rizzo MD Unavailable Afia Valle MD Unavailable [phone] Reason for Visit * Reason Comments Other Encounter Details Date Type Department Care Team (Late st Contact Info) Description 07/27/2021 Refill [facility] [address] [address] Jean Munoz MD [address] [place] [phone] Other Social History Tobacco Use Types [...] End Da te pregabalin (LYRICA) 300 mg capsuleIndications:Bookbinder Apprentice majo low back pain TAKE 1 CAPSULE BY MOUTH TWICE DAILY. DAILY MAX: 2 CAPSULES 180 capsule 07/29/2021 09/26/2021 documented in this encounter Miscellaneous Notes * Telephone Encounter - Lizz Negro RN - 07/29/2021 0831 EST Medication(s) Requested: lyrica 300 mg Preferred Pharmacy: [facility] Is patient out of medication? unknown Last Refill Date: 06/26/21 Last Visit Date with Ordering Provider: 06/25/21 Next Non-Acute Visit Date Scheduled with Care Team: 08/26/21 LIZZ NEGRO RN 07/29/2021 8:31 documented in this encounter Plan of Treatment Upcoming Encounters Date Type Department Care Team (Late st Contact Info) Description 06/29/2024 14:15 EDT Office Visit [facility] [address] [place] [address] Jean Munoz MD [...] BY MOUTH TWICE DAILY. Daily max 2Caps(600mg) 06/26/2021 07/29/2021 documented as of this encounter Care Teams Improvement Coordinator Relationship Specialty Start Date End Date Jean Munoz MD [address] [place] [phone] PCP - General 12/31/08 Manny Rizzo MD [address] [place] [phone] 04/20/10 Afia Valle MD [address] [facility], Level [address] [place] [phone] MD Care Team Radiation Oncology 07/02/21 documented as of this encounter
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
--- OUTSIDE RECORDS SUMMARY | 2024-06-10 07:11 | XMS_ITS | Encounter Summary ---
Author Organization [facility] Address [address] [place] [address] Care Team Providers Care Tetryl Boiling Tub Operator Name Role Phone Jean Munoz MD Primary Care Provider Manny Rizzo MD Unavailable Afia Valle MD Unavailable Jesi Leong HIDE SALTER Unavailable SaloJesi shanks HIDE SALTER Unavailable Reason for Visit * Reason Comments Other Encounter Details Date Type Department Care Team (Late st Contact Info) Description 07/14/2021 Refill [facility] [address] [place] [address] Jean Munoz MD [address] [place] [phone] Other Social History Tobacco Use Types [...] tab daily 28 Tablet 07/15/2021 08/12/2021 documented in this encounter Miscellaneous Notes * Telephone Encounter - Caroline Swanson RN - 07/15/2021 0947 EDT Medication(s) Requested: Zolpidem Preferred Pharmacy: [facility] Is patient out of medication? Unknown Last Refill Date: 04/20/21 #28 x2 Last Visit Date with Ordering Provider: 06/25/21 Next Non-Acute Visit Date Scheduled with Care Team: No. CAROLINE SWANSON RN 07/15/2021 9:48 documented in this encounter Plan of Treatment Upcoming Encounters Date Type Department Care Team (Late st Contact Info) Description 06/29/2024 14:15 EDT Office Visit [facility] Medicine [facility] [address] [place] [address] Jean Munoz MD [address] [place] [phone] documented as of this encounter [...] unspecified type TAKE 1 TABLET BY MOUTH AT BEDTIME NEEDED. LIMIT: 1 PER DAY 04/20/2021 07/15/2021 documented as of this encounter Additional Health Concerns Infection Onset Date Last Indicated Resolved Time R/O COVID-19 05/15/2022 05/15/2022 05/20/2022 22:1 6 EDT R/O COVID-19 11/14/2022 11/14/2022 11/14/2022 19:1 6 EST documented as of this encounter Care Teams Tetryl Boiling Tub Operator Relationship Specialty Start Date End Date Jean Munoz MD [address] [place] [phone] PCP - General 12/31/08 Manny Rizzo MD [address] [place] [phone] 04/20/10 Afia Valle MD [address] [place] [address] [address] [place] [phone] Care Team Radiation Oncology 07/02/[address] [facility] [address] [place] [phone] Safety And Security Officer 12/24/21 09/20/[address] [facility] [address] [place] [phone] Behavioral Health Safety And Security OfficerRadiator Mechanic Care 10/19/22 01/23/24 documented as of this encounter
--- OUTSIDE RECORDS SUMMARY | 2024-06-10 07:11 | XMS_ITS | Encounter Summary ---
Author Organization [facility] Address [address] [place] [address] Care Team Providers Care Warp Picker Name Role Phone Jean Munoz MD Primary Care Provider Manny Rizzo MD Unavailable Afia Valle MD Unavailable Reason for Visit * Reason Onset Date Comments Other 07/29/2021 Radiation Therap On Treatment Visit Encounter Details Date Type Department Care Team (Late st Contact Info) Description 07/29/2021 Radiation Therapy Visit [facility] Radiation Oncology - [address] [address] Afia Valle MD [address] [place] [address], [address] [place] [phone] Malignant neoplasm of upper lobe, [...] Progress Notes * Afia Valle MD - 07/29/2021 1305 EST On Treatment Visit Note Date/Time: 07/29/21 13:07 Diagnosis: The encounter diagnosis was Malignant neoplasm of upper lobe, right bronchus or lung (HCC). Site: [facility] Daily RT Dose: 400 cGy Current RT Dose: 400 cGy Planned RT Dose: 6000 cGy Concurrent chemo: None Physician Assessment Patient tolerance: Day 1, no problems. She has been having some right sided chest wall pain for 1-2weeks. She has a history of narcolepsy with frequent falls but does not recall any trauma to this area and has no bruising. Pain scale: 0/10 Physical Exam Wt Readings from Last 3 Encounters: 06/25/21 84.4 kg (186 lb) 06/16/21 88 kg (194 lb) 06/05/21 86.2 kg (190 lb) ECOG Performance status: 0: Fully active, able to carry on all pre-disease performance without restriction Gen: well-appearing, no acute distress Skin: no reaction. Neuro: AO, grossly non-focal Data Review: Lab Results Component Value Date WBC 9.51 07/06/2018 HGB 13.6 07/06/2018 HCT 39.8 07/06/2018 PLT 288 06/05/2021 Lab Results Component Value Date CREATININE 0.53 07/06/2018 BUN 10 07/06/2018 NA 143 07/06/2018 K 3.6 07/06/2018 CL 109 07/06/2018 CO2 26 07/06/2018 CALCIUM 8.7 07/06/2018 I have reviewed the patient's pertinent vitals signs and labs as resulted in the EMR. Assessment: Stable course with expected RT side effects. Right CP of unclear etiology, not related to cancer to treatment Plan: Continue RT. Will monitor right CP. Has medication (vicodin). A review of treatment set-up, dosimetry, and IGRT images has been performed. documented in this encounter Plan of Treatment Upcoming Encounters Date Type Department Care Team (Late st Contact Info) Description 06/29/2024 14:15 EDT [facility] [address] [place] [address] Jean Munoz MD [address] [place] [phone] documented as of this encounter Visit [...] colon documented in this encounter Care Teams Warp Picker Relationship Specialty Start Date End Date Jean Munoz MD [address] [place] [phone] PCP - General 12/31/08 Manny Rizzo MD [address] [place] [phone] 04/20/10 Afia Valle MD [address] [place] [address] [address] [place] [phone] Care Team Radiation Oncology 07/02/21 documented as of this encounter
--- OUTSIDE RECORDS SUMMARY | 2024-06-10 07:11 | XMS_ITS | Encounter Summary ---
Author Organization [facility] Address [address] [place] [address] Care Team Providers Care Customer Service Analyst Name Role Phone Jean Munoz MD Primary Care Provider Manny Rizzo MD Unavailable Reason for Referral * Consult (Routine/Next Available) - New Request Specialty Diagnoses / Procedures Referred By [facility] Referred To Contact Hematology and Oncology Diagnoses Malignant neoplasm of hilus of lung, unspecified laterality (HCC-CMS) Lloyd Diana MD MPH [address] [facility], [address] [place] [address] Referral ID Status Reason Start Date Expiration Date Visits Requested Visits Authorized [id number] New Request Specialty Services Required 1 1 1 Question Answer Location [facility] Tumor Board Lung Working Stage tbd Additional Providers No Clinical Question? Yes Specify clinical question ?N1 disease Radiology Review Review Recent Radiology Please indicate which [facility] studies are to be reviewed. CT, Nuc Med Radiology Question ? n1 disease on pet Pathology Review No Need to Review Trial Options No Encounter Details Date Type Department Care Team (Late st Contact Info) Description 06/26/2021 Orders Only [facility] Cancer Center Hematology & Oncology - [address] [address] Sebastián Reza, RN Malignant neoplasm of hilus of lung, unspecified laterality (HCC-CMS) (HCC) (HCC-CMS) (Primary Dx) Social History [...] [facility] [address] [place] [address] Jean Munoz MD [address] [place] [phone] Scheduled Referrals Name Type Priority Associated Diagnoses Order Schedule AMB CONSULT/FOLLOW UP TUMOR BOARD Outpatient Referral Routine/Next Available Malignant neoplasm of hilus of lung, unspecified laterality (HCC-CMS) (HCC) (HCC-CMS) Ordered: 06/26/2021 documented as of this encounter Visit Diagnoses Diagnosis Malignant neoplasm of hilus of lung, unspecified laterality (HCC-CMS)- Primary Screening for osteoporosis- Primary Special screening for osteoporosis Primary narcolepsy without cataplexy Chronic pain syndrome Chronic low back pain Lumbago Chronic use of opiate for therapeutic purpose Pain medication agreement Encounter for long-term (current) use of other medications Screen for colon cancer Special screening for malignant neoplasms, colon documented in this encounter Care Teams Customer Service Analyst Relationship Specialty Start Date End Date Jean Munoz MD [address] [place] [phone] PCP - General 12/31/08 [place] [address] [place] [phone] 04/20/10 documented as of this encounter
--- OUTSIDE RECORDS SUMMARY | 2024-06-10 07:11 | XMS_ITS | Encounter Summary ---
Author Organization [facility] Address [address] [place] [address] Care Team Providers Care Radio Producer Name Role Phone Jean Munoz MD Primary Care Provider Manny Rizzo MD Unavailable Encounter Details Date Type Department Care Team (Late st Contact Info) Description 06/25/2021 Documentation Visit [facility] Hematology & Oncology - [facility] [address] [place] [address] Sebastián Reza, RN Social History Tobacco Use Types Packs/Day Years [...] of this encounter Progress Notes * Sebastián Reza RN - 06/25/2021 0018 EDT Informed of need for medonc visit and lmdc visit on 06/30 documented in this encounter Plan of Treatment Upcoming Encounters Date Type Department Care Team (Late st Contact Info) Description 06/29/2024 14:15 EDT Office Visit [facility] [address] [place] [address] Jean Munoz MD [address] [place] [phone] documented as of this encounter Visit Diagnoses Not on filedocumented in this encounter Care Teams Radio Producer Relationship Specialty Start Date End Date Jean Munoz MD [address] [place] [phone] PCP - General 12/31/08 Manny Rizzo MD [address] [place] [address] 04/20/10 documented as of this encounter
--- OUTSIDE RECORDS SUMMARY | 2024-06-10 07:11 | XMS_ITS | Encounter Summary ---
Author Organization [facility] Address [address] [place] [address] Care Team Providers Care Professor Of Rhetoric Name Role Phone Jean Munoz MD Primary Care Provider Manny Rizzo MD Unavailable Encounter Details Date Type Department Care Team (Latest Contact Info) Description 06/23/2021 14:00 EDT Documentation Visit [facility] Multidisciplinary Lung Clinic - [facility] [address] [place], [place] [id number] Social History Tobacco Use Types Packs/Day Years [...] Sign Reading Time Taken Comments Blood Pressure 138/85 06/23/2021 1405 EDT Pulse 104 06/23/2021 1405 EDT Temperature 36.6 ??C (97.8 ??F) 06/23/2021 1405 EDT Respiratory Rate 20 06/23/2021 1405 EDT Oxygen Saturation 97% 06/23/2021 1405 EDT Inhaled Oxygen Concentration - - Weight [...] 14:15 EDT Office Visit [facility] [address] [place] [address] Jean Munoz MD [address] [place] [phone] documented as of this encounter Visit Diagnoses Not on filedocumented in this encounter Care Teams Professor Of Rhetoric Relationship Specialty Start Date End Date Jean Munoz MD [address] [place] [phone] PCP - General 12/31/08 Manny Rizzo MD [address] [place] [phone] 04/20/10 documented as of this encounter
--- OUTSIDE RECORDS SUMMARY | 2024-06-10 07:11 | XMS_ITS | Encounter Summary ---
Author Organization [facility] Address [address] [place] [address] Care Team Providers Care Dry Cure Worker Name Role Phone Jean Munoz MD Primary Care Provider Manny Rizzo MD Unavailable Afia Valle MD Unavailable [phone] Reason for Visit * Reason Comments Lung Cancer Encounter Details Date Type Department Care Team (Late st Contact Info) Description 07/15/2021 Radiation Therapy Visit [facility] Radiation Oncology - Main [place] [address] [place] [address] Donis Mitchell, RN [address] [place] [address] Malignant neoplasm of upper lobe, right bronchus [...] Progress Notes * Donis Mitchell RN - 07/15/2021 1117 EDT The encounter diagnosis was Malignant neoplasm of upper lobe, right bronchus or lung (HCC). Treatment Information Plan for Treatment: Radiation therapy alone to right upper lobe of lung for stage IIb non-small cell lung cancer. Start Date/Time: 07/29/21 Radiation Plan: Right upper lobe of lung 400 cGy x [id number] Chemotherapy Plan: None at this time. Transport Plan: Radiation oncology account specialist, Esha Rivas is working with patient to set uprides through an agency. Education Session Established contact and assessed patient readiness to learn: Yes Reviewed treatment plan, goals and possible acute side effects:Yes Reviewed site specific skin care, anticipated acute side effects and care management of the acute side effects:Yes Physician specific care management reviewed:Yes Learning objective met and will reinforce as needed:Yes Comments: Written patient and family education material provided: Yes Patient Information Alerts reviewed: Yes Allergies reviewed: Yes Cardiac pacemaker: No Implantable defibrillator: No Medication reconciliation completed: Yes Patient Intake form reviewed: Yes Pharmacy confirmed: Yes Smoking Information Current smoker: No If yes, was smoking cessation discussed? Was patient referral initiated? Past smoker: Yes Comments: Patient is a 40-cjsx-yfgf smoking history. She quit smoking 8 years ago. She lives with 2chain smokers and smells heavily of smoke today. Referrals gang worker: Yes Services: Radiation oncology account specialistEsha met with patient and her friend, Shell to assess needs and help with transportation. [facility]: No Other: Subjective Note: General: I met with Liset Viera after her CT simulation in preparation for starting radiation therapy to right upper lobe of lung for stage IIb non-small cell lung cancer. There is a strong smell of smoke in the room where the patient is sitting. She states that she stopped smoking 8 years ago but that her and their roommate smoke in the house continuously. Patient reports she has a cough which is worse with lying down at night. She takes Mucinex for thiswith not great relief. Patient reports that she has ALJEANDRE. It is very difficult for her to climb stairs or walk long distances. Nutrition: Regular diet Pain: Patient reports that she does have pain in the right upper chest. She states she also has many other musculoskeletal sites of pain. She takes Vicodin every 6 hours per PCP. Numeric Pain Level (Scale 1-10): 4 Pain Treatment: Vicodin 7.5/325 every 6 hours [id number]. Patient states she is allergic to ibuprofen. Narcotic: Yes Psychosocial: Patient lives with her and a roommate. Esha Rivas is involved for assistance with rides. Patient has a history of narcolepsy. She is on Ritalin for this which is monitored by her PCP. Physical Exam: General: Patient has a history of narcolepsy. Her eyelids were very heavy during our 40-minute meeting today. She did not actually nod off to sleep. General Appearance: Appears comfortable, no acute distress Here With: FriendShell Skin Exam: Reviewed skin care during radiation therapy including moisturizers recommended during treatment. Reviewed the timing of skin toxicities. Reviewed that nicotine make skin reactions more intense. Lung: Patient had low-dose screening CT on 05/06/2021. This showed a right apical nodule (14 x 10 mm). 06/05/2021 biopsy showed non-small cell lung cancer. PET scan revealed uptake in the right upper lobe. Patient was not felt to be a good surgical candidate. Plan now is for hypofractionated radiation therapy. Per Dr. Spencer, she is holding on chemo for now. Musculoskeletal: Patient reports she has many sites of musculoskeletal pain. She has degenerative disc disease in her back. She has a torn meniscus, status post right broken ankle and foot issues. Neurologic: Alert and oriented Plan: Plan Comment: Radiation therapy alone to right upper lobe of lung for stage II non-small cell lung cancer Medication Changes: None Patient Education Topic: Radiation therapy Method: Verbal and written information given Taught to: Patient and her friendShell Barriers: None. Patient has a history of narcolepsy her eyelids became very heavy during our discussion but she did not fall asleep.. Outcomes: Verbalized understanding. documented in this encounter Plan of Treatment Upcoming Encounters Date Type Department Care Team (Late st Contact Info) Description 06/29/2024 14:15 EDT Office Visit [address] [address] Jean Munoz MD [address] [place] [address] documented as of this encounter Visit Diagnoses Diagnosis Malignant neoplasm of upper lobe, right bronchus or lung ([facility])- Primary Screening for osteoporosis- Primary Special screening for osteoporosis Primary narcolepsy without cataplexy Chronic pain syndrome Chronic low back pain Lumbago Chronic use of opiate for therapeutic purpose Pain medication agreement Encounter for long-term (current) use of other medications Screen for colon cancer Special screening for malignant neoplasms, colon documented in this encounter Care Teams Dry Cure Worker Relationship Specialty Start Date End Date Jean Munoz MD [address] [place] [address] PCP - General 12/31/08 Manny Rizzo MD [address] [place] [address] 04/20/10 Afia Valle MD [address] [place] [address], [address] [place] [phone] Care Team Radiation Oncology 07/02/21 documented as of this encounter
--- OUTSIDE RECORDS SUMMARY | 2024-06-10 07:11 | XMS_ITS | Encounter Summary ---
Author Organization [facility] Address [address] [place] [address] Care Team Providers Care Certified Flex Endoscope Reprocessor Name Role Phone Jean Munoz MD Primary Care Provider Manny Rizzo MD Unavailable Afia Valle MD Unavailable Encounter Details Date Type Department Care Team (Late st Contact Info) Description 07/15/2021 Documentation Visit [facility] Radiation Oncology - Main [place] [address] [place], [place] [phone] Jorge Rivas Social History Tobacco Use Types [...] slept in a prison (including now)? No 04/24/2021 Interpersonal Safety Answer [...] encounter Progress Notes * Jorge Rivas - 07/15/2021 3180 EDT PRODUCT SAFETY ENGINEER NOTE: Met with Liset following her CT SIM. Pt present for her appointment with her close friend. Pt lives in [place] with her and adult son. Plan is for 15 radiation treatments. Introduced role of social work and completed distress screen. Primary concern is transportation. PHYSICAL: Pt does not smoke but her and son do in the home. She plans to address with them and ask they do so outside. EMOTIONAL: PT denies emotional concerns. Provided brief overview of support. FINANCIAL: Assistance toward gas appreciated. Will submit to [facility] and Valente Greco. TRANSPORTATION: Will call Liset once schedule is set. Plan is for pt's friend to provide support formost appts. For the ones she can't cover pt will ask her landlord. Pt aware I can set up GMTA if needed. A Car Exemption Request will need to be done. PLAN: 1. Check in with pt about appt times, set up rides if needed. 2. Referral to [facility] and Valente Greco. FADUMO DUNHAM documented in this encounter Plan of Treatment Upcoming Encounters Date Type Department Care Team (Late st Contact Info) Description 06/29/2024 14:15 EDT Office Visit [facility] Medicine [facility] [address] [place], [place] [phone] Jean Munoz MD [address] [place] [phone] documented as of this encounter Visit Diagnoses Not on filedocumented in this encounter Care Teams Certified Flex Endoscope Reprocessor Relationship Specialty Start Date End Date Jean Munoz MD [address] [place] [address] PCP - General 12/31/08 Manny Rizzo MD [address] [place] [address] 04/20/10 Afia Valle MD [address] [facility], [address] [place] [address] MD Care Team Radiation Oncology 07/02/21 documented as of this encounter
--- OUTSIDE RECORDS SUMMARY | 2024-06-10 07:12 | XMS_ITS | Encounter Summary ---
Author Organization [facility] Address [address] [place] [address] Care Team Providers Care Crisis Manager Name Role Phone Jean Munoz MD Primary Care Provider Manny Rizzo MD Unavailable Reason for Referral * Radiology Services (Routine/Next Available) - Authorization Not Required Specialty Diagnoses / Procedures Referred By [facility] t Referred To Contact Nuclear Medicine Diagnoses Malignant neoplasm of lung, unspecified laterality, unspecified part of lung (HCC-CMS) Procedures PET CT EYE TO THIGH Lloyd Diana MD MPH [address] [place] [address], [facility] [address] [place] [address] Referral ID Status Reason Start Date Expiration Date Visits Requested Visits Authorized [id number] Authorization Not Required 06/11/2021 1 1 Encounter Details Date Type Department Care Team (Late st Contact Info) Description 06/11/[address] [facility] Pulmonology & Critical Care - [address] [address] Sebastián Reza RN Malignant neoplasm of lung, unspecified laterality, unspecified part of lung (HCC-CMS) (Primary Dx) Social History Tobacco [...] [facility] [address] [place], [place] [phone] Jean Munoz MD [address] [place] [address] documented as of this encounter Results * PET CT EYE TO THIGH (06/16/2021 11:46 EDT) Anatomical Region Laterality Modality Body Positron Emissio n Tomography (PET) 06/16/2021 17:4 8 EDT Impressions 06/16/2021 17:48 EDT 1. ??Uptake associated with the previously biopsied right upper lobe nodule with a small adjacent minimally FDG avid intrapulmonary enlarged lymph node as above. No evidence of significant hilar or mediastinal disease. No definite distal metastases are noted. 2. ??Upper extremity and neck muscular uptake. Note the patient's apparent fasting blood glucose is 142, although gastric contents are noted. Repeat fasting blood glucose or correlation with hemoglobin A1c is recommended in the absence of known diabetes. 3. ??Smoking-related lung disease including centrilobular and paraseptal emphysema. 4. ??Surgical changes related to prior Aspen with recurrent small hiatal hernia. 5. ??Nonobstructive left renal nephrolithiasis. I have personally reviewed the images and the above interpretation and agree with the findings. Narrative 06/16/2021 17:[address] EYE TO THIGH 06/16/2021 9:00 AM Signs and Symptoms: ??Staging, lung cancer, non-small cell Comparison: CT chest 05/06/2021, 08/17/2019, CT abdomen pelvis 08/15/2008.. Technique: Approximately 92 minutes following the IV injection of 8.73 mCi of [id number], 3D TOF PET imaging was obtained from the skull base to upper thighs using a Toothpick digital ??PET/CT system. ??The blood glucose level prior to injection was 142 mg/dl. ??The injection site was the left hand. Oral contrast was administered. Findings: HEAD/NECK: There [...] 1.8). No other suspicious pulmonary nodules are present. There are smoking-related lung disease including centrilobular and paraseptal emphysema. Low-level uptake associated with the hilar and mediastinal lymph nodes is noted, likely smoking related. Of note there is no asymmetric uptake seen in the previously described 12 mm left paratracheal lymph node (axial image #230). Significant radiotracer uptake is seen [...] multilevel spondyloarthropathy of the spine is noted. Procedure Note Gage Reddy MD - 06/16/[address] EYE TO THIGH 06/16/2021 9:00 AM Signs and Symptoms: Staging, lung cancer, non-small cell Comparison: CT chest 05/06/2021, 08/17/2019, CT abdomen pelvis 08/15/2008.. Technique: Approximately 92 minutes following the IV injection of 8.73 mCi [id number], 3D TOF PET imaging was obtained from the skullbase to upper thighs using a Toothpick digital PET/CT system. Theblood glucose level prior to injection was 142 mg/dl. The injection sitewas the left hand. Oral contrast was administered. Findings: HEAD/NECK: There is physiologic FDG uptake seen in the head and neck. Low-leveluptake seen corresponding to the sternohyoid muscles. No cervicaladenopathy. CHEST: There is avid uptake associated with the previously described right upperlobe solid nodule measuring up to 14 mm (axial image #203, SUV max 5.6).There is asymmetric uptake seen within an intrapulmonary lymph nodemeasuring a 5-6 mm average dimension adjacent to the right upper lobarpulmonary artery (axial image #218, SUV max 1.8). No other suspiciouspulmonary nodules are present. There are smoking-related lung diseaseincluding centrilobular and paraseptal emphysema. Low-level uptakeassociated with the hilar and mediastinal lymph nodes is noted, likelysmoking related. Of note there is no asymmetric uptake seen in thepreviously described 12 mm left paratracheal lymph node (axial image#230). Significant radiotracer uptake is seen in the neck, upper extremity, androtator cuff musculature. No significant abnormality of the chest wall.The cardiac chambers are within normal limits. No evidence of pericardialdisease. The pulmonary trunk is within normal limits. Mild calcifiedatherosclerotic plaque is seen in the aortic arch without aneurysmaldilatation. There is no evidence of pleural disease. ABDOMEN/PELVIS: No contour deforming hepatic, splenic, adrenal, or splenic lesions. Thegallbladder is unremarkable. No evidence of biliary ductal dilatation.Surgical changes related to prior Aspen are seen at the GE junction witha small recurrent hiatal hernia. There is an exophytic cyst measuringapproximately centimeters seen in the left mid kidney which wasdemonstrated on the CT abdomen pelvis from 08/15/2008, minimally changed.No other contour deforming renal lesions. Nonobstructive left renalnephrolithiasis. No evidence of hydroureteronephrosis. The urinary bladderis minimally distended, poorly evaluated. Prior hysterectomy. No adnexalmasses. No evidence of bowel obstruction. No bowel-containing hernia. MUSCULOSKELETAL: Prior ACDF of C3-C7 without concerning focal FDG uptake. No suspiciousosseous lesions or other focal marrow FDG uptake is seen. Mild multilevelspondyloarthropathy of the spine is noted. IMPRESSION 1. Uptake associated with the previously biopsied right upper lobe nodulewith a small adjacent minimally FDG avid intrapulmonary enlarged lymphnode as above. No evidence of significant hilar or mediastinal disease. Nodefinite distal metastases are noted. 2. Upper extremity and neck muscular uptake. Note the patient's apparentfasting blood glucose is 142, although gastric contents are noted. Repeatfasting blood glucose or correlation with hemoglobin A1c is recommended inthe absence of known diabetes. 3. Smoking-related lung disease including centrilobular and paraseptalemphysema. 4. Surgical changes related to prior Aspen with recurrent small hiatalhernia. 5. Nonobstructive left renal nephrolithiasis. I have personally reviewed the images and the above interpretation andagree with the findings. Lloyd Diana MD MPH IMG NM ORD EDU documented in this encounter Visit Diagnoses Diagnosis Malignant neoplasm of lung, unspecified laterality, unspecified part of lung (HCC-CMS)- Primary Malignant neoplasm of lung, unspecified laterality, unspecified part of lung (HCC-CMS) Screening for osteoporosis- Primary Special screening for osteoporosis Primary narcolepsy without cataplexy Chronic pain syndrome Chronic low back pain Lumbago Chronic use of opiate for therapeutic purpose Pain medication agreement Encounter for long-term (current) use of other medications Screen for colon cancer Special screening for malignant neoplasms, colon documented in this encounter Care Teams Crisis Manager Relationship Specialty Start Date End Date Jean Munoz MD [address] [place] [address] PCP - General 12/31/08 Manny Rizzo MD [address] [place] [phone] 04/20/10 documented as of this encounter
--- OUTSIDE RECORDS SUMMARY | 2024-06-10 07:12 | XMS_ITS | Encounter Summary ---
Author Organization [facility] Address [address] [place] [address] Care Team Providers Care Chemical Handler Name Role Phone Jean Munoz MD Primary Care Provider Manny Rizzo MD Unavailable Reason for Referral * Consult (Routine/Next Available) - New Request Specialty Diagnoses / Procedures Referred By [facility] Referred To Contact Hematology and Oncology Diagnoses Malignant neoplasm of hilus of lung, unspecified laterality (HCC-CMS) Lloyd Diana MD MPH [address] [facility], [address] [place] [address] Referral ID Status Reason Start Date Expiration Date Visits Requested Visits Authorized [id number] New Request Specialty Services Required 06/12/2021 1 1 Question Answer Location [facility] Tumor Board Lung Working Stage TBD Additional Providers No Clinical Question? Yes Specify clinical question confirm stage, treatment options. Radiology Review Review Recent Radiology Please indicate which [facility] studies are to be reviewed. CT, Nuc Med Radiology Question PET WEDNESDAY AM Pathology Review Review Recent Pathology Please indicate which slides are to be reviewed and add the pathology question FAN Trial Options No Encounter Details Date Type Department Care Team (Late st Contact Info) Description 06/12/2021 Orders Only [facility] Hematology & Oncology - Main [address] [address] Sebastián Reza, RN Malignant neoplasm of hilus of lung, unspecified laterality (HCC-CMS) (HCC) (Primary Dx) Social History Tobacco Use Types [...] Description 06/29/2024 14:15 EDT Office Visit [facility] [address] [place] [address] Jean Munoz MD [address] [place] [phone] Scheduled Referrals Name Type Priority Associated Diagnoses Order Schedule AMB CONSULT/FOLLOW UP TUMOR BOARD Outpatient Referral Routine/Next Available Malignant neoplasm of hilus of lung, unspecified laterality (HCC-CMS) (HCC) Ordered: 06/12/2021 documented as of this encounter Visit Diagnoses Diagnosis Malignant neoplasm of hilus of lung, unspecified laterality (HCC-CMS) (HCC)- Primary Screening for osteoporosis- Primary Special screening for osteoporosis Primary narcolepsy without cataplexy Chronic pain syndrome Chronic low back pain Lumbago Chronic use of opiate for therapeutic purpose Pain medication agreement Encounter for long-term (current) use of other medications Screen for colon cancer Special screening for malignant neoplasms, colon documented in this encounter Care Teams Chemical Handler Relationship Specialty Start Date End Date Jean Munoz MD [address] [place] [phone] PCP - General 12/31/08 Manny Rizzo MD [address] [place] [phone] 04/20/10 documented as of this encounter
--- OUTSIDE RECORDS SUMMARY | 2024-06-10 07:12 | XMS_ITS | Encounter Summary ---
Author Organization [facility] Address [address] [place] [address] Care Team Providers Care Administrative Assistant Data Entry Name Role Phone Jean Munoz MD Primary Care Provider Manny Rizzo MD Unavailable Reason for Visit * Reason Onset Date Comments Appointment Related 05/22/2021 Encounter Details Date Type Department Care Team (Late st Contact Info) Description 05/22/2021 Telephone [facility] Interventional Radiology - [facility] [address] [place], [place] [phone] Emanuel Guadarrama MD [address] [facility], [address] [place] [address] Appointment Related Social History Tobacco Use Types [...] encounter Miscellaneous Notes * Telephone Encounter - Genoveva Lamas - 05/22/2021 1154 EDT Called and left a message for Liset requesting return phone call regarding lung biopsy scheduled for06/05/21 at 9:00 a.m. Left my title, name, and returned phone number requesting call back. documented in this encounter Plan of Treatment Upcoming Encounters Date Type Department Care Team (Late st Contact Info) Description 06/29/2024 14:15 EDT Office Visit [facility] [address] [place], [place] [phone] Jean Munoz MD [address] [place] [phone] documented as of this encounter Visit Diagnoses Not on filedocumented in this encounter Care Teams Administrative Assistant Data Entry Relationship Specialty Start Date End Date Jean Munoz MD [address] [place] [address] PCP - General 12/31/08 Manny Rizzo MD [address] [place] [address] 04/20/10 documented as of this encounter
--- OUTSIDE RECORDS SUMMARY | 2024-06-10 07:12 | XMS_ITS | Encounter Summary ---
Author Organization [facility] Address [address] [place] [address] Care Team Providers Care Machine Operator Picker Name Role Phone Jean Munoz MD Primary Care Provider Manny Rizzo MD Unavailable Reason for Visit * Reason Onset Date Comments Appointment Related 06/03/2021 Encounter Details Date Type Department Care Team (Late st Contact Info) Description 06/03/2021 Telephone [facility] Interventional Radiology - [facility] [address] [place], [place] [phone] Mariza Costa, RN [address] [place] [address] Appointment Related Social History Tobacco Use Types [...] encounter Miscellaneous Notes * Telephone Encounter - Mariza Costa, RN - 06/03/2021 1153 EDT IR pre call reviewed per Albin Meehan RN note, all questions answered. documented in this encounter Plan of Treatment Upcoming Encounters Date Type Department Care Team (Late st Contact Info) Description 06/29/2024 14:15 EDT Office Visit [facility] [address] [place] [address] Jean Munoz MD [address] [place] [address] documented as of this encounter Visit Diagnoses Not on filedocumented in this encounter Care Teams Machine Operator Picker Relationship Specialty Start Date End Date Jean Munoz MD [address] [place] [phone] PCP - General 12/31/08 Manny Rizzo MD [address] [place] [phone] 04/20/10 documented as of this encounter
--- OUTSIDE RECORDS SUMMARY | 2024-06-10 07:12 | XMS_ITS | Encounter Summary ---
Author Organization [facility] Address [address] [place] [address] Care Team Providers Care Treasury Assistant Name Role Phone Jean Munoz MD Primary Care Provider Manny Rizzo MD Unavailable Encounter Details Date Type Department Care Team (Latest Contact Info) Description 06/13/2021 14:10 EDT Phlebotomy Only [facility] [place] [address] [place] [address] Malignant neoplasm of hilus of lung, unspecified laterality (HCC-CMS) (HCC) (HCC-CMS) Social History Tobacco Use [...] Visit [facility] [address] [place], [place] [id number] Jean Munoz MD [address] [place] [address] documented as of this encounter Procedures Procedure Name Priority Date/Time Associated Diagnosis Comments ZZCOVID-19 TEST [facility] PCR Today 06/13/2021 14:04 EDT Malignant neoplasm of hilus of lung, unspecified laterality (HCC-CMS) (HCC) (HCC-CMS) COVID-19 TESTING Routine 06/13/2021 14:0 4 EDT Malignant neoplasm of hilus of lung, unspecified laterality (HCC-CMS) (HCC) (HCC-CMS) documented in this encounter Results * COVID-19 TEST [facility] PCR (06/13/2021 14:04 EDT) Swab BOTH ANTERIOR NARES / Unknown Swab / Unknown 06/13/2021 14:04 EDT 06/13/2021 14:04 EDT Remberto Pichardo MD MICROBIOLOGY - GENERAL ORDERABLES [facility] [address] [place] [address] * COVID-19 TESTING (06/13/2021 14:04 EDT) COVID-19 rt-PCR Result Negative Negative 06/14/2021 10:45 EDT [facility] Comment: This test has not [...] clinical observations, patient history, and epidemiological information. Testing was performed using the melanie SARS-CoV-2 assay ([employer] on the Melanie 6800 System Performing Lab Melanie 68[address] [facility] 06/14/2021 10:45 EDT [facility] Swab BOTH ANTERIOR NARES / Unknown Swab / Unknown 06/13/2021 14:04 EDT 06/13/2021 14:04 EDT Remberto Pichardo MD MICROBIOLOGY - GENERAL ORDERABLES [facility] [address] [place] [address] documented in this encounter Visit Diagnoses Diagnosis Malignant neoplasm of hilus of lung, unspecified laterality (HCC-CMS) Screening for osteoporosis- Primary Special screening for osteoporosis Primary narcolepsy without cataplexy Chronic pain syndrome Chronic low back pain Lumbago Chronic use of opiate for therapeutic purpose Pain medication agreement Encounter for long-term (current) use of other medications Screen for colon cancer Special screening for malignant neoplasms, colon documented in this encounter Care Teams Treasury Assistant Relationship Specialty Start Date End Date Jean Munoz MD [address] [place] [phone] PCP - General 12/31/08 Manny Rizzo MD [address] [place] [phone] 04/20/10 documented as of this encounter
--- OUTSIDE RECORDS SUMMARY | 2024-06-10 07:12 | XMS_ITS | Encounter Summary ---
Author Organization [facility] Address [address] [place] [address] Care Team Providers Care Peanut Roaster Name Role Phone Jean Munoz MD Primary Care Provider Manny Rizzo MD Unavailable Afia Valle MD Unavailable Jesi Leong PLANT CONTROLS SPECIALIST Unavailable SaloJesi shanks PLANT CONTROLS SPECIALIST Unavailable [phone] Reason for Visit * Reason Comments Other Encounter Details Date Type Department Care Team (Late st Contact Info) Description [facility] [address] [place] [address] Jean Munoz MD [address] [place] [phone] Other Social History Tobacco Use Types [...] No 04/24/2021 Housing Stability Vital Sign Answer Gusatvo e Recorded In the last 12 months, [...] End Da te pregabalin (LYRICA) 300 mg 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 daily max: 2 capsules 40 capsule 05/08/2021 05/23/2021 documented in this encounter Miscellaneous Notes * Telephone Encounter - Sebastián Bhatti RN - 05/08/2021 0841 EDT Images from the original note were not included. Per VPMS: documented in this encounter Plan of Treatment Upcoming Encounters Date Type Department Care Team (Late st Contact Info) Description 06/29/2024 14:15 EDT Office Visit [facility] [address] [place] [address] Jean Munoz MD [address] [place] [address] documented as of this encounter Visit Diagnoses Diagnosis Chronic low back pain Lumbago Screening for osteoporosis- Primary Special screening [...] Take 1 capsule by mouth 2 times daily for 20 days. Daily Max: 600 mg 04/08/2021 05/08/2021 documented as of this encounter Additional Health Concerns Infection Onset Date Last Indicated Resolved Time R/O COVID-19 05/15/2022 05/15/2022 05/20/2022 22:1 6 EDT R/O COVID-19 11/14/2022 11/14/2022 11/14/2022 19:1 6 EST documented as of this encounter Care Teams Peanut Roaster Relationship Specialty Start Date End Date Jean Munoz MD [address] [place] [phone] PCP - General 12/31/08 Manny Rizzo MD [address] [place] [phone] 04/20/10 Afia Valle MD [address] [place] [address] [address] [place] [phone] Care Team Radiation Oncology 07/02/21 Jesi Leong [facility] [address] [place] [phone] Asphalt Surface Heater Operator 12/24/21 09/20/22 Jesi Leong [facility] [address] [place] [phone] Behavioral Health Asphalt Surface Heater OperatorContact Center Engineer Care 10/19/22 01/23/24 documented as of this encounter
--- OUTSIDE RECORDS SUMMARY | 2024-06-10 07:12 | XMS_ITS | Encounter Summary ---
Author Organization [facility] Address [address] [place] [address] Care Team Providers Care Assistant Clinical Director Name Role Phone Jean Munoz MD Primary Care Provider Manny Rizzo MD Unavailable Reason for Referral * Test (Routine/Next Available) - Authorization Not Required Specialty Diagnoses / Procedures Referred By [facility] t Referred To Contact Diagnoses Malignant neoplasm of hilus of lung, unspecified laterality (HCC-CMS) Procedures PULMONARY FUNCTION TESTING Remberto Pichardo MD [address] [place] [address], [facility] [address] [place] [address] Referral ID Status Reason Start Date Expiration Date Visits Requested Visits Authorized [id number] Authorization Not Required 06/10/2021 1 1 Encounter Details Date Type Department Care Team (Late st Contact Info) Description 06/10/[address] [facility] Pulmonology & Critical Care - [facility] [address] [place], [place] [phone] Sebastián Reza, CHRIS Malignant neoplasm of hilus of lung, unspecified laterality (HCC-CMS) (Primary Dx) Social History Tobacco Use [...] EDT Office Visit [facility] [address] [place] [address] Jean Munoz MD [address] [place] [address] documented as of this encounter Results * PULMONARY FUNCTION TESTING (06/16/2021 12:38 EDT) 06/16/2021 12:3 8 EDT Remberto Pichardo MD PFT ORDERABLES [facility] * COVID-19 TESTING (06/13/2021 14:04 EDT) COVID-19 rt-PCR Result Negative Negative 06/14/2021 10:45 EDT [facility] Comment: This test has [...] was performed using the melanie SARS-CoV-2 assay ([employer] on the Melanie 6800 System Performing Lab Melanie [address] [facility] 06/14/2021 10:45 EDT [facility] Swab BOTH ANTERIOR NARES / Unknown Swab / Unknown 06/13/2021 14:04 EDT 06/13/2021 14:04 EDT Remberto Pichardo MD MICROBIOLOGY - GENERAL ORDERABLES [facility] [address] [place] [address] documented in this encounter Visit Diagnoses Diagnosis Malignant neoplasm of hilus of lung, unspecified laterality ([facility])- Primary Screening for osteoporosis- Primary Special screening for osteoporosis Primary narcolepsy without cataplexy Chronic pain syndrome Chronic low back pain Lumbago Chronic use of opiate for therapeutic purpose Pain medication agreement Encounter for long-term (current) use of other medications Screen for colon cancer Special screening for malignant neoplasms, colon documented in this encounter Care Teams Assistant Clinical Director Relationship Specialty Start Date End Date Jean Munoz MD [address] [place] [phone] PCP - General 12/31/08 Manny Rizzo MD [address] [place] [phone] 04/20/10 documented as of this encounter
--- OUTSIDE RECORDS SUMMARY | 2024-06-10 07:12 | XMS_ITS | Encounter Summary ---
Author Organization [facility] Address [address] [place] [address] Care Team Providers Care Compression Molding Machine Tender Name Role Phone Jean Munoz MD Primary Care Provider Manny Rizzo MD Unavailable Reason for Visit * Reason Onset Date Comments Appointment Related 05/26/2021 Encounter Details Date Type Department Care Team (Late st Contact Info) Description 05/26/2021 Telephone [facility] Interventional Radiology - [facility] [address] [place], [place] [phone] Emanuel Guadarrama MD [address] [facility] [address] [place] [address] Appointment Related Social History Tobacco [...] Miscellaneous Notes * Telephone Encounter - Genoveva Mendosa - 05/26/2021 0942 EDT Spoke with Liset in regards to scheduling their CT guided lung biopsy. Ms. Viera will be coming in on , June 05, 2021 at 9:00 a.m. Patient understands that they will need a trailer driver for this procedure. They understand that they should plan to be here for 6 hours that day in total for prep, procedure and recovery. Spoke with patient about the need to be NPO after midnight, with the exception of clear liquids two hours prior to their procedure check in time at 9:00 a.m. Covid 19 Policy: It is required that you be tested for Covid- 19 prior to your procedure. Your procedure will not bedone if you opt not to be tested. Testing is required for all IV sedation and General anesthesia cases regardless of your vaccine status per UV guidelines. Prior to the procedure and the Covid test, you must not have travelled in the past 7-14 days. Please call our nursing line LAUREN to make sure we can set up your procedure and Covid testing per guidelines if you have upcomming travel planned. The [facility] will reach out directly to schedule this.The test is required 3 days priorto date of your procedure. Contact information for [phone]. Medication instruction: - RN to contact with detailed pre procedure medication instructions - They will take their morning medications with a small sip of water. - Patient confirmed that they are NOT taking blood thinning medication. Patient aware IR RN will contact prior to procedure to go over prep in detail and answer any questions. I have sent patient confirmation via mail. I have notified the Hem/Onc Nurse Pool of this patients scheduled date and time. Any further questions can be addressed to Interventional Radiology Department [phone] Ext. 1 Ms. Viera verbalized understanding and agrees with Plan of Care. No cognitive barriers were identified during this conversation. She has our contact number to call with questions. GENOVEVA MENDOSA documented in this encounter Plan of Treatment Upcoming Encounters Date Type Department Care Team (Late st Contact Info) Description 06/29/2024 14:15 EDT Office Visit [facility] [address] [place] [address] Jean Munoz MD [address] [place] [phone] documented as of this encounter Visit Diagnoses Not on filedocumented in this encounter Care Teams Compression Molding Machine Tender Relationship Specialty Start Date End Date Jean Munoz MD [address] [place] [phone] PCP - General 12/31/08 Manny Rizzo MD [address] [place] [phone] 04/20/10 documented as of this encounter
--- OUTSIDE RECORDS SUMMARY | 2024-06-10 07:12 | XMS_ITS | Encounter Summary ---
Author Organization [facility] Address [address] [place] [address] Care Team Providers Care Appraiser Irrigation Tax Name Role Phone Jean Munoz MD Primary Care Provider Manny Rizzo MD Unavailable Encounter Details Date Type Department Care Team (Late st Contact Info) Description 06/06/2021 Documentation Visit [facility] Hematology & Oncology - [facility] [address] [place] [address] Sebastián Reza, RN Social History [...] Progress Notes * Sebastián Reza RN - 06/06/2021 [address] [facility] visit 06/09, moved to 06/16 documented in this encounter Plan of Treatment Upcoming Encounters Date Type Department Care Team (Late st Contact Info) Description 06/29/2024 14:15 EDT Office Visit [facility] [address] [place] [address] Jean Munoz MD [address] [place] [phone] documented as of this encounter Visit Diagnoses Not on filedocumented in this encounter Care Teams Appraiser Irrigation Tax Relationship Specialty Start Date End Date Jean Munoz MD [address] [place] [phone] PCP - General 12/31/08 Manny Rizzo MD [address] [place] [address] 04/20/10 documented as of this encounter
--- OUTSIDE RECORDS SUMMARY | 2024-06-10 07:12 | XMS_ITS | Encounter Summary ---
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 35mm Hg. Right atrium: The atrium was normal in size. Pericardium: There was no pericardial effusion. Systemic veins: Inferior vena cava: The vessel was normal in size. Measurements Left ventricle Value 02/13/2014 Reference LV ID, ED, PLAX 5.0 cm 3.5 - 6.0 LV ID, ES, PLAX 3.5 cm 2.1 - 4.0 LV PW thickness, ED, PLAX 1.0 cm LV end-diastolic volume, 1-p 33 ml A2C LV ejection fraction, 1-p 63 % A2C LV end-diastolic volume, 1-p 38 ml 79 A4C LV ejection fraction, 1-p 65 % 58 A4C LV IVRT, DP 60 ms 81 60 - 100 LV e', lateral 0.094 m/sec 0.081 LV E/e', lateral 10 11 LV e', medial 0.087 m/sec LV E/e', medial 10 LV e', average 0.09 m/sec LV E/e', average 10 Ventricular septum Value 02/13/2014 Reference IVS thickness, ED, PLAX 0.9 cm Aorta Value 02/13/2014 Reference Aortic root ID 3.1 cm Ascending aorta ID, A-P 3.1 cm Ascending aorta ID, A-P, S 3.1 cm 2.6 Left atrium Value 02/13/2014 Reference LA ID, A-P, ES 3.0 cm 3.1 LA ID/bsa, A-P 1.5 cm/m^2 1.5 <=2.2 LA area, ES, A4C 15.9 cm^2 8.8 - 23.4 LA area, ES, A2C 14 cm^2 LA volume, ES, 2-p 40 ml LA volume/bsa, ES, 2-p 20 ml/m^2 LA/aortic root ratio 0.97 Mitral valve Value 02/13/2014 Reference Mitral E-wave peak velocity 0.91 m/sec 0.85 Mitral A-wave peak velocity 0.73 m/sec 0.95 Mitral deceleration time 187 ms 162 150 - 230 Mitral peak gradient, D 3.3 mm Hg 2.9 Mitral E/A ratio, peak 1.3 1 Legend: (L) and (H) akin values outside specified reference range. I have personally reviewed the images and have reviewed and edited the reported findings. Electronically signed by Anthony Rand MD 12/28/2016 14:41 Assessment: Ms. Viera is a 60 year old woman with a history of COPD, restriction, and tobacco use who was found on screening CT to have spiculated RUL lung nodule. We discussed that this is concerning for a malignancy. Although the typical approach to this would be bronchoscopic to allow for sampling of themediastinal lymph nodes I am worried about her ability to tolerate that procedure. Thus we have ordered a percutaneous biopsy. She understands and would like to proceed. Plan: Percutaneous biopsy If malignancy confirmed she will need a PET CT and repeat PFTs. Thank you for asking us to see this patient in clinic today Lloyd Diana MD MPH I spent a total of 85 minutes on the date of this encounter meeting with the patient and reviewing documentation/coordinating care as described in the above note. No procedures were performed at the time of the visit. documented in this encounter Procedure Notes * Vince Dennis PA-C - 06/05/2021 1121 EDT IR Procedure Note Procedure: CT guided RIGHT lung biopsy Date Performed: 06/05/2021 Radiologist/Sorority Mother(s): MD Arsh/AIRAM Dennis Sedation/Anesthesia: Versed 1.5 mg Fentanyl 200 mcg Time Out: A time-out was completed prior to procedure verifying correct patient, procedure, site, positioning, and special equipment if applicable. Estimated Blood Loss: Unless otherwise noted, there was no blood loss, specimens removed, cultures obtained, or drains retained. Specimens: FNA x multiple and 20 ga cores Fluoroscopy Time: See dictated procedure note Contrast Volume: none Complications: none Condition: stable Post Procedure Diagnosis: Right lung nodule Findings: Cells for cytologic diagnosis Recommendations: F/u cytology Vince Dennis PA-C 06/05/2021 11:21 documented in this encounter Plan of Treatment Upcoming Encounters Date Type Department Care Team (Late st Contact Info) Description 06/29/2024 14:15 EDT Office Visit [facility] [address] [place] [address] Jean Munoz MD [address] [place] [address] documented as of this encounter Procedures Procedure Name Priority Date/Time Associated Diagnosis Comments XR CHEST 1 VIEW Routine 06/05/2021 13:45 EDT XR CHEST 1 VIEW STAT 06/05/2021 13:08 EDT IR BIOPSY Routine 06/05/2021 11:20 EDT Lung nodule 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 Trace right apical pneumothorax status post IR guided lung biopsy, unchanged from most recent prior. 2. Chronic pulmonary disease. I have personally reviewed the images and the above interpretation and agree with the findings. Narrative 06/05/2021 15:36 EDT XR CHEST 1 VIEW ??06/05/2021 2:00 PM CLINICAL HISTORY/COMMENTS: right lung nodule s/p biopsy COMPARISON: Multiple priors, most recent chest x-ray obtained less than an hour prior. TECHNIQUE: Frontal view of the chest was performed using dual energy technique with bone and soft tissue reconstruction. FINDINGS: Soft tissues, bones, and extrathoracic findings: ??Cervical spinal fusion hardware intact. Cardiac and mediastinal contours: The cardiomediastinal silhouette is normal. Lungs: Biapical emphysematous changes. Diffuse bilateral coarse reticulonodular opacities. ?? Pleura/diaphragms: Trace right apical pneumothorax. No visible pleural effusion. Procedure Note Anthony Paulino MD - 06/05/2021 XR CHEST 1 VIEW 06/05/2021 2:00 PM CLINICAL HISTORY/COMMENTS: right lung nodule s/p biopsy COMPARISON: Multiple priors, most recent chest x-ray obtained less than an hourprior. TECHNIQUE: Frontal view of the chest was performed using dual energy technique withbone and soft tissue reconstruction. FINDINGS: Soft tissues, bones, and extrathoracic findings: Cervical spinal fusionhardware intact. Cardiac and mediastinal contours: The cardiomediastinal silhouette isnormal. Lungs: Biapical emphysematous changes. Diffuse bilateral coarsereticulonodular opacities. Pleura/diaphragms: Trace right apical pneumothorax. No visible pleuraleffusion. IMPRESSION 1. Trace right apical pneumothorax status post IR guided lung biopsy,unchanged from most recent prior. 2. Chronic pulmonary disease. I have personally reviewed the images and the above interpretation andagree with the findings. Vince Dennis PA-C IMG DIAGNOSTIC IM AGING ORDERABLES * XR CHEST 1 VIEW (06/05/2021 13:08 EDT) Anatomical Region Laterality Modality Computed Radiogr aphy 06/05/2021 13:1 9 EDT Impressions 06/05/2021 13:19 EDT 1. ??Small right apical pneumothorax. Narrative 06/05/2021 13:19 EDT XR CHEST 1 VIEW ??06/05/2021 1:05 PM CLINICAL HISTORY/COMMENTS: lung nodule s/p biopsy right COMPARISON: Interventional CT needle lung biopsy of the left upper lobe nodule done 2 hours prior to the current chest x-ray. TECHNIQUE: Frontal view of the chest was performed using dual energy technique with bone and soft tissue reconstruction. FINDINGS: Small right apical pneumothorax identified, 2 hours after the needle lung biopsy of the small right upper lobe pulmonary nodule Procedure Note Anthony Paulino MD - 06/05/2021 XR CHEST 1 VIEW 06/05/2021 1:05 PM CLINICAL HISTORY/COMMENTS: lung nodule s/p biopsy right COMPARISON: Interventional CT needle lung biopsy of the left upper lobe nodule done 2hours prior to the current chest x-ray. TECHNIQUE: Frontal view of the chest was performed using dual energy technique withbone and soft tissue reconstruction. FINDINGS: Small right apical pneumothorax identified, 2 hours after the needle lungbiopsy of the small right upper lobe pulmonary nodule IMPRESSION 1. Small right apical pneumothorax. Vince Dennis PA-C IMG DIAGNOSTIC IM AGING ORDERABLES * IR BIOPSY (06/05/2021 11:20 EDT) Anatomical Region Laterality Modality Computed Tomogra phy 06/05/2021 15:0 7 EDT Impressions 06/05/2021 15:[address]-guided fine-needle aspiration core needle biopsy of a tumor within the upper lobe of the right lung. Narrative 06/05/2021 15:[address]-guided fine-needle aspiration and core needle biopsy of a tumor within the upper lobe of the right lung 06/05/2021 at 1020 hours HISTORY: Upper lobe right lung tumor. Please biopsy. Description: A time out was performed, with documentation of two patient identifiers, the correct procedure, and the correct site. Written consent was obtained. The patient was prepped and draped in sterile fashion. A time-out was performed, confirming the correct patient, the correct procedure, and the correct site. ??1% lidocaine was used for local analgesia. Conscious [...] lobe of the right lung. Then, multiple 25- gauge fine-needle aspiration biopsy samples were obtained and submitted to the pathologist. The pathologist recommended the core needle biopsies be performed. Then, multiple 20-gauge core needle biopsy samples were obtained and submitted to the pathology department in formalin for histopathologic analysis. The needle was removed without difficulty. A small amount of peritumoral parenchymal hemorrhage is identified on the post biopsy CT imaging, but no evidence of a complication. The patient tolerated the procedure well. ??No complication occurred. ??The estimated blood loss during the procedure was zero. The DLP was 379.7. Procedure Note Stewart Caban MD - 06/05/2021 CT-guided fine-needle aspiration and core needle biopsy of a tumor withinthe upper lobe of the right lung 06/05/2021 at 1020 hours HISTORY: Upper lobe right lung tumor. Please biopsy. Description: A time out was performed, with documentation of two patientidentifiers, the correct procedure, and the correct site. Written consentwas obtained. The patient was prepped and draped in sterile fashion. Atime-out was performed, confirming the correct patient, the correctprocedure, and the correct site. 1% lidocaine was used for localanalgesia. Conscious sedation was administered with the monitoring of thepatient's heart rate, blood pressure, respiratory rate, and oxygensaturation. With the patient in the LPO position and utilizing CT guidance, steriletechnique, local lidocaine anesthesia, a 19-gauge guide needle wasadvanced into the peripheral margin of the tumor within the upper lobe ofthe right lung. Then, multiple 25- gauge fine-needle aspiration biopsysamples were obtained and submitted to the pathologist. The pathologistrecommended the core needle biopsies be performed. Then, multiple 20-gaugecore needle biopsy samples were obtained and submitted to the pathologydepartment in formalin for histopathologic analysis. The needle wasremoved without difficulty. A small amount of peritumoral parenchymalhemorrhage is identified on the post biopsy CT imaging, but no evidence ofa complication. The patient tolerated the procedure well. No complication occurred. Theestimated blood loss during the procedure was zero. The DLP was 379.7. IMPRESSION Successful CT-guided fine-needle aspiration core needle biopsy of a tumorwithin the upper lobe of the right lung. Lloyd Diana MD MPH [facility] * SURGICAL PATHOLOGY (06/05/2021 11:14 EDT) Note to Patient The following pathology results have been interpreted by your pathologist and may be available to you before your health provider has had the opportunity to review them. Please allow time for your provider to receive these results and explore management options, if applicable. 06/10/2021 7:37 EDT [facility] Final Diagnosis A. LUNG, RIGHT UPPER LOBE, 1.4 CM NODULE, CT-GUIDED FINE NEEDLE ASPIRATION: - Non-small cell carcinoma, favor pulmonary adenocarcinoma, moderately to poorly differentiated. 06/10/2021 7:37 EDT [facility] Diagnosis Comment This case was presented and reviewed at the intradepartmental consultation conference. Immunohistochemical study was performed on this case to characterize the lesion, and the immunoreactivity profile supports the diagnosis. IMMUNOHISTOCHEMISTRY: ANTIBODY(CLONE)(BLOCK ):RESULT keratin AE1-AE3 (AE1-AE3, [facility]) (A1): Positive CD45 (LCA) (X1699, [facility]) (A1): Negative CD68 (514H12, [facility]) (A1): Negative TTF-1 (8G7G3/1, [place]) (A1): Positive P40 (BC28, [facility]) (A1): Negative The pathologic findings and clinicoradiographic information available at the time of pathologic examination do not indicate the patient has advanced stage disease. Reflex PD-L1 and molecular testing is therefore not initiated. Should testing be deemed clinical appropriate, it may be requested by the clinician. NOTE: One or more of the reagents used in immunoperoxidase testing in this case may not have been cleared or approved by the U.S. Food and Drug Administration (FDA). The FDA has determined that such clearance or approval is not necessary. These tests are used for clinical purposes. They should not be regarded as investigational or for research. These reagents' performance characteristics have been determined by [facility] and/or by the referring laboratory. The positive and negative controls worked appropriately. If immunoperoxidase staining has been performed on alcohol fixed cytology specimens, which has not been fully validated, the assays should be interpreted with caution and correlated with clinical data. This laboratory is certified under the Clinical Laboratory Improvement Amendments of 1988 (CLIA-88) as qualified to perform high complexity clinical laboratory testing. 06/10/2021 7:37 [facility] Attestation By the signature below, the attending physician certifies that they have 1) personally conducted a gross and/or microscopic examination of the described specimen(s), and/or personally interpreted the results of laboratory testing of the described specimen(s), and 2) personally rendered or confirmed the above diagnosis. 06/10/2021 7:37 [facility] at 0737 Clinical History Former smoker noted to have a RUL 1.4 cm spiculated nodule on lung CA screening; evaluate for malignancy 06/10/2021 7:37 [facility] Gross Description A. Received in formalin labelled with proper patient identification (initials P, L) and not otherwise specified are two white to red focally black speckled soft tissue cores (1.2 cm and 0.6 cm in length, and each less than 0.1 cm in diameter), and an aggregate of white to red focally black speckled soft tissue core fragments (0.2 x 0.2 x 0.2 cm). The tissue cores are submitted in A1, and the aggregate of tissue cores is entirely submitted in A2. Manjit Pena 06/05/2021 12:20 06/10/2021 7:37 [facility] Performing Lab [facility] 06/10/2021 7:37 [facility] Scanned Images 06/10/2021 7:37 [facility] Tissue ENTIRE RIGHT UPPER LOBE OF LUNG / Unknown Collection, Other / Unknown 06/05/2021 11:14 EDT 06/05/2021 11:41 EDT Vince Dennis PA-C PATHOLOGY ORDERAB LES [facility] [address] [place] [address] * NON HORTICULTURAL FARMWORKER/FNA CYTOLOGY (06/05/2021 11:14 EDT) Note to Patient The following pathology results have been interpreted by your pathologist and may be available to you before your health provider has had the opportunity to review them. Please allow time for your provider to receive these results and explore management options, if applicable. 06/10/2021 15:45 EDT [facility] Final Diagnosis A. LUNG, RIGHT UPPER LOBE, NODULE, CT-GUIDED FINE NEEDLE ASPIRATION: - Non small cell carcinoma, favor adenocarcinoma. See comment. 06/10/2021 15:45 EDT [facility] Diagnosis Comment Cytologic evaluation reveals cohesive clusters of large cells in a background of inflammation and debris. The malignant cells exhibit moderate delicate cytoplasm and large pleomorphic nuclei with open chromatin and multiple prominent nucleoli. These findings are consistent with a non-small cell carcinoma, favor adenocarcinoma. The cells are morphologically similar to those in the concurrent biopsy ([id number]). Please see this report for additional information. [employer] slides of this case were reviewed at the intradepartmental consultation conference. 06/10/2021 15:45 [facility] Attestation There was significant resident/fellow involvement in the diagnostic evaluation of this case. By the signature below, the attending physician certifies that they have personally conducted a gross and/or microscopic examination of the described specimens and rendered or confirmed the above diagnosis. 06/10/2021 15:45 [facility] at 1545 Rapid Diagnosis LUNG, RIGHT UPPER LOBE, 1.4 CM NODULE, CT GUIDED FINE NEEDLE ASPIRATION: Evaluation episode #1: Pass #1-3: Non small cell carcinoma. Only on pass one. Additional material requested. Evaluation episode #2: Pass #4-6: Non small cell carcinoma. Core biopsies obtained for diagnosis. Dr. Nic Wright 06/05/2021 11:10 AM I was present at the procedure and have personally reviewed the slides and the resident's interpretation and agree with the findings. Dr. Pablo Vasquez 06/05/2021 11:10 AM 06/10/2021 15:45 EDT [facility] Clinical History Former smoker noted to have a RUL 1.4 cm spiculated nodule on lung CA screening; evaluate for malignancy 06/10/2021 15:45 EDT [facility] Gross Description A. 6 fixed prepared slides and 3 air dried prepared slides were received. 06/10/2021 15:45 EDT [facility] Resident/Fell ow: Chavo Wright MD 06/10/2021 15:45 EDT [facility] Performing Lab [facility] 06/10/2021 15:45 EDT [facility] Scanned Images 06/10/2021 15:45 EDT [facility] Fine Needle Aspirate ENTIRE RIGHT UPPER LOBE OF LUNG / Unknown 06/05/2021 11:14 EDT 06/05/2021 11:19 EDT Vnice Dennis PA-C PATHOLOGY ORDERAB LES Performing Organization Address City/State/[facility] Co de Phone Number [facility] [address] [place] [id number] * PROTIME (06/05/2021 9:25 EDT) I.N.R. 1.0 0.9 - 1.1 Ratio 06/05/2021 9:40 EDT [facility] Pro Time 11.3 10.4 - 12.6 secs 06/05/2021 9:40 EDT [facility] Blood VENOUS BLOOD / Unknown Venipuncture / Unknown 06/05/2021 9:25 EDT 06/05/2021 9:29 EDT Narrative [facility] - 06/05/2021 9:40 EDT Moderate Intensity Coumadin INR = 2.0-3.0 Adjustments in anticoagulant therapy dose should be based on the INR and NOT on the Protime. Vince Dennis PA-C HEMATOLOGY & PF4 ORDERABLES [facility] [address] [place] [address] * PLATELET COUNT (06/05/2021 9:25 EDT) PLT 288 141 - 377 K/cmm 06/05/2021 9:35 EDT [facility] Blood VENOUS BLOOD / Unknown Venipuncture / Unknown 06/05/2021 9:25 EDT 06/05/2021 9:29 EDT Vince Dennis PA-C HEMATOLOGY & PF4 ORDERABLES Performing Organization Address City/[facility] Co de Phone Number [facility] [address] [place] [address] documented in this encounter Visit Diagnoses Diagnosis Lung nodule Solitary pulmonary nodule Screening for osteoporosis- Primary Special screening for [...] MAR Action Action Date Dose Rate Site midazolam (MDV) (VERSED) injection 0.5-10 mg 0.5-10 mg, intravenous, ONCE PRN, 1 dose, Starting on Cayla 06/05/21 at 0951, Until Cayla 06/05/21 at 1113, Sedation, Routine, Preprocedure Given 06/05/2021 11:13 EDT 1.5 mg sodium chloride 0.9 % (NS) infusion 50 mL/hr, intravenous, CONTINUOUS, Starting on Cayla 06/05/21 at 0930, Until Cayla 06/05/21 at 1616, Routine, Preprocedure Rate Documented 06/05/2021 11:29 EDT 50 mL/hr 50 mL/hr New Bag 06/05/2021 9:27 EDT 50 mL/hr 50 mL/hr documented in this encounter Active and Recently Administered Medications Times are shown in EDT. Continuous Medication Order 06/03/2021 06/04/202106/05/2021 sodium chloride 0.9 % (NS) infusion 50 mL/hr, intravenous, CONTINUOUS, Starting on Cayla 06/05/21 at 0930, Until [place]la 06/05/21 at 1616, Routine, Preprocedure 0927 (New Bag - Prov ider: Yadira Mendez RN)1129 (Rate Documented - Provider: Juliette Schuler, CHRIS)1355 (IV Stopped - Provider: Juliette Schuler RN) PRN Medication Order 06/03/2021 06/04/2021 06/05/2021 midazolam (MDV) (VERSED) injection 0.5-10 mg (COMPLETED) 0.5-10 mg, intravenous, ONCE PRN, 1 dose, Starting on Cayla 06/05/21 at 0951, Until [place]la 06/05/21 at 1113, Sedation, Routine, Preprocedure 1113 (Given - Provid er: Celia Rincon RN) documented in this encounter Orders Medications Ordered That Victor Manuel ht Not Have Been Administered Count Last Ordered Date First Ordered Date fentaNYL citrate (PF) injection 25-250 mcg 1 06/05/2021 flumazenil (ROMAZICON) injection 0.2 mg 1 0 06/05/2021 lidocaine (PF) 10 mg/mL (1 % ) injection 2 mg 1 06/05/2021 naloxone (NARCAN) injection 0.4 mg 1 2020 Discharge Count Last Ordered Date First Orde red Date DISCHARGE PATIENT 1 06/05/2021 documented in this encounter Care Teams Electrical Engineering Technician Relationship Specialty Start Date End Date Jean Munoz MD [address] [place] [id number] PCP - General 12/31/08 Manny Rizzo MD [address] [place] [id number] 04/20/10 documented as of this encounter
--- OUTSIDE RECORDS SUMMARY | 2024-06-10 07:12 | XMS_ITS | Encounter Summary ---
Author Organization [facility] Address [address] [place] [address] Care Team Providers Care Roofer Metal Name Role Phone Jean Munoz MD Primary Care Provider Manny Rizzo MD Unavailable Reason for Visit * Reason Onset Date Comments Patient Education 06/02/2021 Encounter Details Date Type Department Care Team (Late st Contact Info) Description 06/02/2021 Telephone [facility] Interventional Radiology - [facility] [address] [place] [address] Elham Meehan, HCRIS Patient Education Social History Tobacco Use Types Packs/Day Years [...] encounter Miscellaneous Notes * Telephone Encounter - Elham Meehan RN - 06/02/2021 1006 EDT Interventional Radiology Appt: 06/05 900 on RUl Lung Phone call made to patient to review the following pre-procedure prep & information: unable to reach patient, left message requesting call back to [facility] RN line M-F Check into registration (3rd floor) by 845 Clinical Fellow confirmed: (bus/taxi is not allowed): [] Clinical Fellow will be on site[] Clinical Fellow will be available by phone[] Covid-19 Policy: -test required 3 days prior to the procedure, regardless of vaccination status. You must self isolate post test. [facility] for [phone] Please call if you have s/s of Covid 19 or concern you have been exposed. Current Visitor Policy: -Entrances into all [facility] buildings and clinics will be restricted and everyone who enters will be asked the purpose of their visit to the medical center. -Two healthy support people are permitted to escort a patient undergoing any procedure requiring sedation or general anesthesia. Pre Sedation Guidelines: 1)Have no solid food or liquids containing fats, including milk, after midnight before your procedure. 2) On the day of your procedure, you should have only water or other clear liquids until 3 hours before the scheduled time of your procedure. . Acceptable Liquids (until 700) -Water -Clear Fruit Juices-Apple, Grape, Cranberry -Gatorade -black coffee/tea- If cream is added expect a delay or need to reschedule the procedure -Clear carbonated beverages Unacceptable (DO NOT Drink) -[place] juice (orange or pineapple) -clear broth -Gelatin and clear broth are not considered clear liquids for pre-sedation/pre-operative fasting asthese may be protein based and thus may potentially delay gastric emptying. -apple sauce -no pepsi /coke etc 3) Take your medications as directed with small sips of water at any time prior to your procedure. Medications - take prescribed medications. You should take as needed pain meds as needed. Meds to hold: none per mar pt confirms they are not on any blood thinning medication ??? Do not take Ibuprofen ( Motrin, Advil) for 24 hours prior to the procedure or Aleve (Naproxen) for 2 days prior ??? Full strength Aspirin should not be taken for 5 days prior to this procedure. If you are on a baby Aspirin , this is okay to continue. ( taking any of the above medications could cause a delay in your procedure) -Tylenol (acetaminophen) may be taken for pain. -If you are started on any new medications prior to this appointment, please call [facility] to update - Bring a list of current medications/allergy list -Shower night before or morning of procedure -Leave all valuables/medications at home (other than glasses/hearing aids).If patient uses a CPAP, they should bring it to the appt. pt verbalized understanding, all questions answered. [facility] RN phone number provided, should they have any further questions prior to this appointment. documented in this encounter Plan of Treatment Upcoming Encounters Date Type Department Care Team (Late st Contact Info) Description 06/29/2024 14:15 EDT Office Visit [facility] [address] [place] [address] Jean Munoz MD [address] [place] [phone] documented as of this encounter Visit Diagnoses Not on filedocumented in this encounter Care Teams Roofer Metal Relationship Specialty Start Date End Date Jean Munoz MD [address] [place] [phone] PCP - General 12/31/08 Manny Rizzo MD [address] [place] [phone] 04/20/10 documented as of this encounter
--- OUTSIDE RECORDS SUMMARY | 2024-06-10 07:12 | XMS_ITS | Encounter Summary ---
Author Organization [facility] Address [address] [place] [address] Care Team Providers Care Market Manager Name Role Phone Jean Munoz MD Primary Care Provider Manny Rizzo MD Unavailable Encounter Details Date Type Department Care Team (Late st Contact Info) Description 05/26/2021 Orders Only [facility] Interventional Radiology - [facility] [place] [address] [place], [place] [phone] Mariza Costa, RN [address] [place] [address] Pre-procedure lab exam (Primary Dx) Social History Tobacco Use Types [...] [facility] [address] [place] [address] Jean Munoz MD [address] [place] [address] documented as of this encounter Results * COVID-19 TESTING (06/02/2021 14:04 EDT) COVID-19 rt-PCR Result Negative Negative 06/03/2021 12:06 EDT [facility] Comment: This test [...] performed using the melanie SARS-CoV-2 assay ([employer] on the Melanie 6800 System Performing Lab Melanie 68[address] [facility] Lab 06/03/2021 12:06 EDT [facility] Swab BOTH ANTERIOR NARES / Unknown Swab / Unknown 06/02/2021 14:04 EDT 06/02/2021 14:04 EDT Emanuel Guadarrama MD MICROBIOLOGY - GENER AL ORDERABLES [facility] [address] [place] [address] documented in this encounter Visit Diagnoses Diagnosis Pre-procedure lab exam- Primary Pre-procedural laboratory examination Screening for osteoporosis- Primary Special screening for osteoporosis Primary narcolepsy without cataplexy Chronic pain syndrome Chronic low back pain Lumbago Chronic use of opiate for therapeutic purpose Pain medication agreement Encounter for long-term (current) use of other medications Screen for colon cancer Special screening for malignant neoplasms, colon documented in this encounter Care Teams Market Manager Relationship Specialty Start Date End Date Jean Munoz MD [address] [place] [phone] PCP - General 12/31/08 Manny Rizzo MD [address] [place] [phone] 04/20/10 documented as of this encounter
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
--- OUTSIDE RECORDS SUMMARY | 2024-06-10 07:12 | XMS_ITS | Encounter Summary ---
Author Organization [facility] Address [address] [place] [address] Care Team Providers Care Instrument Calibrator Name Role Phone Jean Munoz MD Primary Care Provider Manny Rizzo MD Unavailable Encounter Details Date Type Department Care Team (Latest Contact Info) Description 06/02/2021 14:[address] [facility] [address] [place] [address] Pre-procedure lab exam Social History Tobacco Use Types Packs/Day Years [...] Info) Description 06/29/2024 14:15 EDT Office Visit [address] [phone] Jean Munoz MD [address] [place] [phone] documented as of this encounter Procedures Procedure Name Priority Date/Time Associated Diagnosis Comments ZZCOVID-19 TEST [facility] PCR Today 06/02/2021 14:04 EDT Pre-procedure lab exam COVID-19 TESTING Routine 06/02/2021 14:0 4 EDT Pre-procedure lab exam documented in this encounter Results * COVID-19 TEST [facility] PCR (06/02/2021 14:04 EDT) Swab BOTH ANTERIOR NARES / Unknown Swab / Unknown 06/02/2021 14:04 EDT 06/02/2021 14:04 EDT Emanuel Guadarrama MD MICROBIOLOGY - GENER AL ORDERABLES [facility] [address] [place] [address] * COVID-19 TESTING (06/02/2021 14:04 EDT) COVID-19 rt-PCR Result Negative Negative 06/03/2021 12:[address] [facility] Comment: This test has [...] performed using the melanie SARS-CoV-2 assay ([employer] on the Melanie 6800 System Performing Lab Melanie 6800 [facility] Lab 06/03/2021 12:[address] [facility] Swab BOTH ANTERIOR NARES / Unknown Swab / Unknown 06/02/2021 14:04 EDT 06/02/2021 14:04 EDT Emanuel Guadarrama MD MICROBIOLOGY - GENER AL ORDERABLES [facility] [address] [place] [address] documented in this encounter Visit Diagnoses Diagnosis Pre-procedure lab exam Pre-procedural laboratory examination Screening for osteoporosis- Primary Special screening for osteoporosis Primary narcolepsy without cataplexy Chronic pain syndrome Chronic low back pain Lumbago Chronic use of opiate for therapeutic purpose Pain medication agreement Encounter for long-term (current) use of other medications Screen for colon cancer Special screening for malignant neoplasms, colon documented in this encounter Care Teams Instrument Calibrator Relationship Specialty Start Date End Date Jean Munoz MD [address] [place] [phone] PCP - General 12/31/08 Manny Rizzo MD [address] [place] [address] 04/20/10 documented as of this encounter
--- OUTSIDE RECORDS SUMMARY | 2024-06-10 07:12 | XMS_ITS | Encounter Summary ---
Author Organization [facility] Address [address] [place] [address] Care Team Providers Care Chief Of Party Name Role Phone Jean Munoz MD Primary Care Provider Manny Rizzo MD Unavailable Reason for Visit * Reason Onset Date Comments Follow-up 05/06/2021 Encounter Details Date Type Department Care Team (Late st Contact Info) Description 05/06/2021 Telephone [facility] [address] [place] [address] Jean Munoz MD [address] [place] [address] Follow-up Social History Tobacco Use [...] Telephone Encounter - Jean Munoz MD - 05/06/2021 1542 EDT I called Liset, reviewed CT results, recommend referral to tumor board to determine next steps, willcontact coordinator Sebastián Cheek. documented in this encounter Plan of Treatment Upcoming Encounters Date Type Department Care Team (Late st Contact Info) Description 06/29/2024 14:15 EDT Office Visit [facility] [address] [place] [address] Jean Munoz MD [address] [place] [phone] documented as of this encounter Visit Diagnoses Not on filedocumented in this encounter Care Teams Chief Of Party Relationship Specialty Start Date End Date Jean Munoz MD [address] [place] [address] PCP - General 12/31/08 Manny Rizzo MD [address] [place] [address] 04/20/10 documented as of this encounter
--- OUTSIDE RECORDS SUMMARY | 2024-06-10 07:12 | XMS_ITS | Encounter Summary ---
Author Organization [facility] Address [address] [place] [address] Care Team Providers Care Telephone Engineer Name Role Phone Jean Munoz MD Primary Care Provider Manny Rizzo MD Unavailable Reason for Visit * Reason Onset Date Comments Appointment Related 05/22/2021 [facility] visit o n 03/25 Encounter Details Date Type Department Care Team (Late st Contact Info) Description 05/22/2021 Telephone [facility] Multidisciplinary Lung Clinic - [facility] [address] [place], [place] [phone] Appointment Related (DC visit on 03/25) Social History Tobacco Use Types Packs/Day Years [...] encounter Miscellaneous Notes * Telephone Encounter - OlegarioShaista - 05/22/2021 1334 EDT Sebastián called and spoke with patient to let her know not to come in on Saturday 05/26 because her biopsy is not until 06/05. We moved patient to 06/09 and it may get moved if pathology not back. She does have a follow up with Dr. Diana on 06/16 documented in this encounter Plan of Treatment Upcoming Encounters Date Type Department Care Team (Late st Contact Info) Description 06/29/2024 14:15 EDT Office Visit [facility] [address] [place], [place] [phone] Jean Munoz MD [address] [place] [phone] documented as of this encounter Visit Diagnoses Not on filedocumented in this encounter Care Teams Telephone Engineer Relationship Specialty Start Date End Date Jean Munoz MD [address] [place] [phone] PCP - General 12/31/08 Manny Rizzo MD [address] [place] [address] 04/20/10 documented as of this encounter
--- OUTSIDE RECORDS SUMMARY | 2024-06-10 07:12 | XMS_ITS | Encounter Summary ---
Author Organization [facility] Address [address] [place] [address] Care Team Providers Care Flitch Hanger Name Role Phone Jean Munoz MD Primary Care Provider Manny Rizzo MD Unavailable Reason for Visit * Reason Comments Tumor Board * Consult (Routine/Next Available) - New Request Specialty Diagnoses / Procedures Referred By Alex weldon Referred To Contact Hematology and Oncology Diagnoses Malignant neoplasm of hilus of lung, unspecified laterality (HCC-CMS) Lloyd Diana MD MPH [address] [facility] [place] [address] Referral ID Status Reason Start Date Expiration Date Visits Requested Visits Authorized [id number] New Request Specialty Services Required 06/12/2021 1 1 Encounter Details Date Type Department Care Team (Late st Contact Info) Description 06/16/2021 13:30 EDT Tumor Board [facility] Hematology & Oncology - [facility] [address] [place], [place] [phone] Primary cancer of right upper lobe of [...] you? Rarely 04/24/2021 How often does anyone, sinaiu mercedes family, insult, scream, curse or threaten [...] Progress Notes * Sebastián Reza RN - 06/16/2021 1330 EDT Transdisciplinary team presenting case: Lung Date of Presentation: 06/16/2021 Patient Name: Liset Viera Diagnosis: 1. 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 Radiology Question:Pet wednesday Pathology Question: Fan Prospective Presentation? Prospective Presentation: Yes Clinical Trial Option Discussed? Clinical Trials: Yes Treatment Guidelines Discussed? Yes Attending Services: Medical Oncology, Radiation, Surgery, Pathology and Radiology. Tumor Board Review and Discussion: Radiology: consistent with reports Radiology review notes: Not performed. Note: this interpretation is subject to the limitations of the tumor board setting and is simply advisory in nature. Pathology: Pathology review notes: Not performed. Note: this interpretation is subject to the limitations of the tumor board setting and is simply advisory in nature. Advisory Recommendations: To see CT surgery and radiation oncology for treatment options. These advisory recommendations are based on the [...] [facility] [address] [place] [address] Jean Munoz MD [address] [place] [address] Scheduled Referrals Name Type Priority [...] colon documented in this encounter Care Teams Flitch Hanger Relationship Specialty Start Date End Date Jean Munoz MD [address] [place] [phone] PCP - General 12/31/08 Manny Rizzo MD [address] [place] [address] 04/20/10 documented as of this encounter
--- OUTSIDE RECORDS SUMMARY | 2024-06-10 07:12 | XMS_ITS | Encounter Summary ---
Author Organization [facility] Address [address] [place] [address] Care Team Providers Care Mixing Roll Operator Name Role Phone Jean Munoz MD Primary Care Provider Manny Rizzo MD Unavailable Reason for Referral * Radiology Services (Routine) - Closed Specialty Diagnoses / Procedures Referred By Alex weldon Referred To Contact Diagnoses Tobacco dependence in remission Encounter for screening for lung cancer Procedures CT CHEST LOW DOSE LUNG SCREENING Jean Munoz MD [address] [place] [phone] Referral ID Status Reason Start Date Expiration Date Visits Re quested Visits Authorized [id number] Closed 11/25/2020 1 1 Reason for Visit * Radiology Services (Routine) - Closed Specialty Diagnoses / Procedures Referred By Alex weldon Referred To Contact Diagnoses Tobacco dependence in remission Encounter for screening for lung cancer Procedures CT CHEST LOW DOSE LUNG SCREENING Jean Munoz MD [address] [place] [phone] Referral ID Status Reason Start Date Expiration Date Visits Re quested Visits Authorized [id number] Closed 11/25/2020 1 1 Encounter Details Date Type Department Care Team (Latest Contact Info) Description 05/06/2021 13:12 EDT - 05/06/2021 23:59 EDT Hospital Encounter Bri Melo [place] [address] [place] [address] Tobacco dependence in remission; Encounter for screening for lung cancer Discharge Disposition: Home or Self Care Social [...] Max: 4 Tablets 112 Tablet 05/26/2021 06/14/2021 HYDROcodone-acetaminoph en (NORCO) 5-325 mg tabletIndications:Chron ic pain syndrome,Chronic use of opiate for therapeutic purpose,Pain medication agreement,Chronic low back pain, unspecified back pain laterality, unspecified whether sciatica present Take 1 Tablet by mouth 4 times daily for 28 days. For chronic pain Daily Max: 4 Tablets 112 Tablet 04/28/2021 05/26/2021 hydroxypropyl methylcellulose (ISOPTO TEARS) 0.5 % ophthalmic solution Place 1 Drop into both eyes 5 times daily. 12/10/2010 10/06/2023 ipratropium-albuterol (DUONEB) 0.5 mg-3 mg(2.5 mg base)/3 mL nebulizer solutionIndications:Jarquin lobular emphysema (HCC-CMS) Take 3 mL by nebulization every 4 hours as needed for Wheezing. 3 mL 3 08/30/2019 11/23/2022 lancetsIndications:Impjett richter glucose tolerance Brand:one touch Typesafe, tests 2 times daily 100 Each 2 07/05/2018 07/08/2021 methocarbamoL (ROBAXIN) 500 mg tabletIndications:Chron ic pain [...] 3 10/25/2020 10/09/2021 pregabalin (LYRICA) 300 mg capsuleIndications:Patrol Judge majo low back pain Take 1 capsule by mouth 2 times daily for 20 days. Daily Max: 600 mg 40 capsule 04/08/2021 05/08/2021 promethazine (PHENERGAN) 25 mg tabletIndications:Nause a TAKE [...] 3 07/24/2019 07/07/2021 SPIRIVA RESPIMAT 1.25 mcg/actuation inhalerIndications:Patrol Judge majo obstructive pulmonary disease, unspecified COPD type [...] mouth daily. 90 Cap 3 08/30/2019 01/27/2023 XOPENEX HFA 45 mcg/actuation inhalerIndications:Panl obular emphysema (HCC-CMS) INHALE TWO PUFFS BY MOUTH EVERY FOUR HOURS as needed for wheezing as directed. for shortness of breath 45 g 1 09/09/2020 05/26/2021 zolpidem (AMBIEN) 5 mg tabletIndications:Insom yesi, unspecified [...] Office Visit [facility] [address] [place] [address] Jean Munoz MD [address] [place] [address] documented as of this encounter Procedures Procedure Name Priority Date/Time Associated Diagnosis Comments CT CHEST LOW DOSE LUNG SCREENING Routine 05/06/2021 13:38 EDT Tobacco dependence in remission Encounter for screening for lung cancer documented in this encounter Results * CT CHEST LOW DOSE LUNG SCREENING (05/06/2021 13:38 EDT) Anatomical Region Laterality Modality Chest Computed Tomogra phy 05/06/2021 15:1 0 EDT Impressions 05/06/2021 15:10 EDT 1. LungRADS category 4X (Very Suspicious) ?? 2. LungRADS category S: Negative, no new or potentially significant incidental findings requiring urgent additional evaluation. 3. Incidental findings as above. RECOMMENDATIONS: Non-surgical biopsy. Continued ??low dose CT lung cancer screening should be [...] by Dr. Munoz on 05/06/2021 3:00 PM. Narrative 05/06/2021 15:[address] CHEST LOW DOSE LUNG SCREENING ??05/06/2021 1:30 PM Clinical History/Comments: tobacco use Technique: [...] Findings: Lung Screening Specific (LungRADS) findings: * ??New right apical spiculated nodule measuring 14 x 10 mm (image 134 axial series 202). * ??Stable to minimally increased very faint 5 mm groundglass nodule in the periphery of the left upper lobe (image 168). Potentially Significant Incidentals (LungRADS Category S): None Pulmonary Incidentals: * ??Moderate upper lung predominant centrilobular emphysema. * ??Moderate, diffuse airway wall thickening, presumably smoking-related. * ??Faint groundglass opacity predominantly in both upper lungs compatible with smoking-related respiratory bronchiolitis. ?? Other incidentals: * ??Postsurgical changes of hiatal hernia repair with residual small hiatal hernia. * ??Partially imaged cervical spine fusion hardware. * ??Mild atherosclerotic calcium in the aortic arch and brachiocephalic artery. * ??Stable top normal size lymph nodes in the lower paratracheal region measuring up to 13 mm on the left (image 91 series 201). ACR Reportable Incidentals: ??None Jean Munoz MD IMG CT ORDERABL ES documented in this encounter Visit Diagnoses Diagnosis Tobacco dependence in remission Personal history of tobacco use, presenting hazards to health Encounter for screening for lung cancer Screening for osteoporosis- Primary Special screening for osteoporosis Primary narcolepsy without cataplexy Chronic pain syndrome Chronic low back pain Lumbago Chronic use of opiate for therapeutic purpose Pain medication agreement Encounter for long-term (current) use of other medications Screen for colon cancer Special screening for malignant neoplasms, colon documented in this encounter Care Teams Mixing Roll Operator Relationship Specialty Start Date End Date Jean Munoz MD [address] [place] [phone] PCP - General 12/31/08 Manny Rizzo MD [address] [place] [address] 04/20/10 documented as of this encounter
--- OUTSIDE RECORDS SUMMARY | 2024-06-10 07:12 | XMS_ITS | Encounter Summary ---
Author Organization [facility] Address [address] [place] [address] Care Team Providers Care Field Secretary Name Role Phone Jean Munoz MD Primary Care Provider Manny Rizzo MD Unavailable Reason for Referral * Radiology Services (Routine/Next Available) - Authorization Not Required Specialty Diagnoses / Procedures Referred By Contac t Referred To Contact Nuclear Medicine Diagnoses Malignant neoplasm of lung, unspecified laterality, unspecified part of lung (HCC-CMS) Procedures PET CT EYE TO THIGH Lloyd Diana MD MPH [address] [place] [phone] Referral ID Status Reason Start Date Expiration Date Visits Requested Visits Authorized [id number] Authorization Not Required 06/11/2021 1 1 Reason for Visit * Radiology Services (Routine/Next Available) - Authorization Not Required Specialty Diagnoses / Procedures Referred By Contac t Referred To Contact Nuclear Medicine Diagnoses Malignant neoplasm of lung, unspecified laterality, unspecified part of lung (HCC-CMS) Procedures PET CT EYE TO [facility] Lloyd Diana MD MPH [address] [phone] Referral ID Status Reason Start Date Expiration Date Visits Requested Visits Authorized [id number] Authorization Not Required 06/11/2021 1 1 Encounter Details Date Type Department Care Team (Latest Contact Info) Description 06/16/2021 8:40 EDT - 06/16/2021 12:30 EDT Hospital Encounter [facility] Radiology Nuclear Medicine and PET - [address] [phone] Malignant neoplasm of lung, unspecified laterality, unspecified part of lung (HCC-CMS) (HCC) (HCC-CMS) Discharge Disposition: Home or Self [...] 02/05/2022 HYDROcodone-acetaminoph en (NORCO) 7.5-325 mg per tablet Take 1 Tablet by mouth every 6 hours for 28 days. Daily Max: 4 Tablets 112 Tablet 06/15/2021 06/25/2021 hydroxypropyl methylcellulose (ISOPTO TEARS) 0.5 % ophthalmic solution Place 1 Drop into both eyes 5 times daily. 12/10/2010 10/06/2023 ipratropium-albuterol (DUONEB) 0.5 mg-3 mg(2.5 mg base)/3 mL nebulizer solutionIndications:Jarquin lobular emphysema (HCC-CMS) Take 3 mL by nebulization every 4 hours as needed for Wheezing. 3 mL 3 08/30/2019 11/23/2022 lancetsIndications:Impa ired glucose tolerance Brand:one touch ultra, [...] 3 10/25/2020 10/09/2021 pregabalin (LYRICA) 300 mg capsuleIndications:Corporate Quality Manager majo low back pain Take 1 [...] 3 07/24/2019 07/07/2021 SPIRIVA RESPIMAT 1.25 mcg/actuation inhalerIndications:Corporate Quality Manager majo obstructive pulmonary disease, unspecified COPD [...] Description 06/29/2024 14:15 EDT Office Visit [facility] [address] [place] [address] Jean Munoz MD [address] [place] [address] documented as of this encounter Procedures Procedure Name Priority Date/Time Associated Diagnosis Comments PET CT EYE TO THIGH Routine 06/16/2021 1 1:46 EDT Malignant neoplasm of lung, unspecified laterality, unspecified part of lung (HCC-CMS) (HCC) (HCC-CMS) POCT GLUCOSE, INTERFACED Routine 06/16/2021 9:07 EDT documented in this encounter Results * PET CT EYE [...] the IV injection of 8.73 mCi of [id number], 3D TOF PET imaging was obtained from the skull base to upper thighs using a [employer] digital ??PET/CT system. ??The blood glucose level [...] following the IV injection of 8.73 mCi [id number], 3D TOF PET imaging was obtained from the skullbase to upper thighs using a [employer] digital PET/CT system. Theblood glucose level prior [...] Lloyd Diana MD MPH IMG NM ORD ERABLES * (ABNORMAL) POCT GLUCOSE, INTERFACED (06/16/2021 9:07 EDT) Glucose, POC 142(H) 70 - 100 mg/dL 06/16/2021 9:07 EDT [facility] HN LAB POC COMMENT (GLUCOSE) Test Performed by Nursing Services 06/16/2021 9:07 EDT [facility] Blood CAPILLARY BLOOD / Unknown 06/16/2021 9:07 EDT 06/16/2021 9:07 EDT Provider Unknown POINT [facility] CARE [facility] [address] [place] [address] documented in this encounter Visit Diagnoses Diagnosis Malignant neoplasm of lung, unspecified laterality, unspecified part of lung ([facility]) Screening for osteoporosis- Primary Special screening for [...] MAR Action Action Date Dose Rate Site fludeoxyglucose (F-18) FDG injection 15 millicurie 15 millicurie, radiopharm IV, NOW X1, 1 dose, On 06/16/21 at 0945, Routine, Imaging Protocol Orders Given 06/16/2021 9:12 EDT 8.73 millicuries documented in this encounter Orders Medications Ordered That Victor Manuel ht Not Have Been Administered Count Last Ordered Date First Ordered Date fludeoxyglucose (F-18) FDG i njection 15 millicurie 1 06/16/2021 documented in this encounter Care Teams Field Secretary Relationship Specialty Start Date End Date Jean Munoz MD [address] [place] [phone] PCP - General 12/31/08 Manny Rizzo MD [address] [place] [address] 04/20/10 documented as of this encounter
--- OUTSIDE RECORDS SUMMARY | 2024-06-10 07:12 | XMS_ITS | Encounter Summary ---
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 Daily Max: 600 mg 60 capsule 05/30/2021 06/26/2021 levalbuterol (XOPENEX HFA) 45 mcg/actuation inhalerIndications:Panl obular emphysema (HCC-CMS) INHALE TWO PUFFS BY MOUTH EVERY FOUR HOURS NEEDED for wheezing as directed. for shortness of breath 45 g 3 05/29/2021 06/30/2022 pregabalin (LYRICA) 300 mg capsuleIndications:Lamp Cleaner majo low back pain Take 1 capsule by mouth 2 times daily. Daily Max: 600 mg 40 capsule 05/26/2021 05/30/2021 XOPENEX HFA 45 mcg/actuation inhalerIndications:Panl obular emphysema (HCC-CMS) INHALE TWO PUFFS BY MOUTH EVERY FOUR HOURS NEEDED for wheezing as directed. for shortness of breath 45 g 05/26/2021 05/29/2021 documented in this encounter Miscellaneous Notes * Addendum Note - Sebastián Velazquez RN - 05/30/2021 1339 EDTAddended by: SEBASTIÁN VELAZQUEZ on: 05/30/2021 13:39 Modules accepted: Orders * Telephone Encounter - Cathy Grullon - 05/30/2021 1040 EDT Patient calling in. Mistakenly told me xopenex, when what she meant was Lyrica. Patient needs a qtyof 60 tablets if she's taking twice per day. Patient due to pick this up on Wednesday. Can we send in new script with 60 tablets * Addendum Note - Sebastián Velazquez RN - 05/29/2021 1508 EDTAddended by: SEBASTIÁN VELAZQUEZ on: 05/29/2021 15:08 Modules accepted: Orders * Telephone Encounter - Cathy Grullon - 05/29/2021 1426 EDT Patient calling in about the xopenex. Is requesting that this be sent in for a 30 day supply. The way it is written right now is for a 20 day supply. * Telephone Encounter - Fani Dickens RN - 05/26/2021 1108 EDT Images from the original note were not included. VPMD check: Routing to PCP for approval. FANI SPANGLER RN 05/26/2021 11:17 * Telephone Encounter - Cathy Grullon - 05/23/2021 1327 EDT Medication(s) Requested: lyrica and xopenex Preferred Pharmacy: [facility] Is patient out of medication? No Last Refill Date: 09/09/20 and 05/08/21 Last Visit Date with Ordering Provider: 04/24/2021 Next Non-Acute Visit Date Scheduled with Care Team: 06/25/2021 Cathy Grullon 05/23/2021 13:27 documented in this encounter Plan of Treatment Upcoming Encounters Date Type Department Care Team (Late st Contact Info) Description 06/29/2024 14:15 EDT Office Visit [facility] [address] [place], [place] [phone] Jean Munoz MD [address] [place] [address] documented as of this encounter Visit Diagnoses Diagnosis Panlobular emphysema (HCC-CMS) Other emphysema Chronic low back pain Lumbago Screening for [...] Discontinue Reason Start Date End Da te XOPENEX HFA 45 mcg/actuation inhalerIndications:Panl obular emphysema (HCC-CMS) INHALE TWO PUFFS BY MOUTH EVERY FOUR HOURS as needed for wheezing as directed. for shortness of breath 09/09/2020 05/26/2021 pregabalin (LYRICA) 300 mg capsuleIndications:Lamp Cleaner majo low back pain TAKE ONE CAPSULE BY MOUTH TWICE DAILY for 20 days. daily max: 2 capsules Reorder 05/08/2021 05/23/2021 XOPENEX HFA 45 mcg/actuation inhalerIndications:Panl obular emphysema (HCC-CMS) INHALE TWO PUFFS BY MOUTH EVERY FOUR HOURS NEEDED for wheezing as directed. for shortness of breath Reorder 05/26/2021 05/29/2021 pregabalin (LYRICA) 300 mg capsuleIndications:Lamp Cleaner majo low back pain Take 1 capsule by mouth 2 times daily. Daily Max: 600 mg Reorder 05/26/2021 05/30/2021 documented as of this encounter Care Teams Drilling Machine Operator Relationship Specialty Start Date End Date Jean Munoz MD [address] [place] [phone] PCP - General 12/31/08 Manny Rizzo MD [address] [place] [address] 04/20/10 documented as of this encounter
--- OUTSIDE RECORDS SUMMARY | 2024-06-10 07:12 | XMS_ITS | Encounter Summary ---
Author Organization [facility] Address [address] [place] [address] Care Team Providers Care Brass Finisher Name Role Phone Jean Munoz MD Primary Care Provider Manny Rizzo MD Unavailable Reason for Visit * Reason Comments Other Encounter Details Date Type Department Care Team (Late st Contact Info) Description 06/04/[address] [address] Jean Munoz MD [address] [place] [phone] Other Social History Tobacco Use Types [...] FOR MIGRAINE 9 Tablet 2 06/06/2021 09/04/2021 documented in this encounter Miscellaneous Notes * Telephone Encounter - Lizz Negro RN - 06/05/2021 0961 EDT Medication(s) Requested: imitrex 100 mg Pref[facility] Pharmacy: [facility] Is patient out of medication? Unknown Last Refill Date: 01/08/21 Last Visit Date with Ordering Provider: 04/24/21 Next Non-Acute Visit Date Scheduled with Care Team: Yes. 06/25/21 LIZZ NEGRO RN 06/05/2021 15:48 documented in this encounter Plan of Treatment Upcoming Encounters Date Type Department Care Team (Late st Contact Info) Description 06/29/2024 14:15 EDT Office Visit [facility] [address] [place], [place] [phone] Jean Munoz MD [address] [place] [phone] documented as of this encounter Visit Diagnoses [...] FOR UP TO 1 DOSE FOR MIGRAINE. Reorder 01/08/2021 06/05/2021 documented as of this encounter Care Teams Brass Finisher Relationship Specialty Start Date End Date Jean Munoz MD [address] [place] [phone] PCP - General 12/31/08 Manny Rizzo MD [address] [place] [phone] 04/20/10 documented as of this encounter
--- OUTSIDE RECORDS SUMMARY | 2024-06-10 07:12 | XMS_ITS | Encounter Summary ---
Author Organization [facility] Address [address] [place] [address] Care Team Providers Care Medtronics Technician Name Role Phone Jean Munoz MD Primary Care Provider Manny Rizzo MD Unavailable Reason for Referral * Test (Routine/Next Available) - Authorization Not Required Specialty Diagnoses / Procedures Referred By Contac t Referred To Contact Diagnoses Malignant neoplasm of hilus of lung, unspecified laterality (HCC-CMS) Procedures PULMONARY FUNCTION TESTING Remberto Pichardo MD [address] [place] [phone] Referral ID Status Reason Start Date Expiration Date Visits Requested Visits Authorized [id number] Authorization Not Required 06/10/2021 1 1 Reason for Visit * Test (Routine/Next Available) - Authorization Not Required Specialty Diagnoses / Procedures Referred By Contac t Referred To Contact Diagnoses Malignant neoplasm of hilus of lung, unspecified laterality (HCC-CMS) Procedures PULMONARY FUNCTION TESTING Remberto Pichardo MD [address] [phone] Referral ID Status Reason Start Date Expiration Date Visits Requested Visits Authorized [id number] Authorization Not Required 06/10/2021 1 1 Encounter Details Date Type Department Care Team (Latest Contact Info) Description 06/16/2021 12:31 EDT - 06/16/2021 23:59 EDT Hospital Encounter 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 See complete report in Procedures. documented in this encounter Plan of Treatment Upcoming Encounters Date Type Department Care Team (Late st Contact Info) Description 06/29/2024 14:15 EDT Office Visit [facility] [address] [place] [address] Jean Munoz MD [address] [place] [address] documented as of this encounter Procedures Procedure Name Priority Date/Time Associated Diagnosis Comments PULMONARY FUNCTION TESTING Routine 06/16/2021 12:38 EDT Malignant neoplasm of hilus of lung, unspecified laterality (HCC-CMS) (HCC) (HCC-CMS) documented in this encounter Results * PULMONARY FUNCTION TESTING (06/16/2021 12:38 EDT) 06/16/2021 12:3 8 EDT Remberto Pichardo MD PFT ORDERABLES [facility] PFT documented in this encounter Visit Diagnoses [...] MAR Action Action Date Dose Rate Site albuterol inhaler 360 mcg 360 mcg (4 Puff), inhalation, NOW X1, 1 dose, On 06/16/21 at 1315, Routine Given 06/16/2021 12:59 EDT 360 mcg documented in this encounter Orders Medications Ordered That Victor Manuel ht Not Have Been Administered Count Last Ordered Date First Ordered Date albuterol inhaler 360 mcg 1 06/16/2021 documented in this encounter Care Teams Medtronics Technician Relationship Specialty Start Date End Date Jean Munoz MD [address] [place] [phone] PCP - General 12/31/08 Manny Rizzo MD [address] [place] [phone] 04/20/10 documented as of this encounter
--- OUTSIDE RECORDS SUMMARY | 2024-06-10 07:12 | XMS_ITS | Encounter Summary ---
Author Organization [facility] Address [address] [place] [address] Care Team Providers Care Telegraphic Typewriter Mechanic Name Role Phone Jean Munoz MD Primary Care Provider Manny Rizzo MD Unavailable Reason for Referral * Radiology Services (Routine/Next Available) - Closed Specialty Diagnoses / Procedures [facility] Referred To Contact Diagnoses Lung nodule Procedures IR BIOPSY Lloyd Diana MD MPH [address] [facility] [address] [place] [address] Referral ID Status Reason Start Date Expiration Date Visits Re quested Visits Authorized [id number] Closed 05/14/2021 1 1 Encounter Details Date Type Department Care Team (Late st Contact Info) Description 05/14/2021 Orders Only [facility] Hematology & Oncology - [address] [phone] Sebastián Reza RN Lung nodule (Primary Dx) Social History Tobacco [...] Info) Description 06/29/2024 14:15 EDT [facility] [address] [place] [address] Jean Munoz MD [address] [place] [address] documented as of this encounter Results * IR BIOPSY (06/05/2021 11:20 EDT) Anatomical [...] the right lung. Lloyd Diana MD MPH IMG JUAN JAQUEZ EDU documented in this encounter Visit Diagnoses Diagnosis Lung nodule- Primary Solitary pulmonary nodule Lung nodule Solitary pulmonary nodule Screening for osteoporosis- Primary Special screening for osteoporosis Primary narcolepsy without cataplexy Chronic pain syndrome Chronic low back pain Lumbago Chronic use of opiate for therapeutic purpose Pain medication agreement Encounter for long-term (current) use of other medications Screen for colon cancer Special screening for malignant neoplasms, colon documented in this encounter Care Teams Telegraphic Typewriter Mechanic Relationship Specialty Start Date End Date Jean Munoz MD [address] [place] [phone] PCP - General 12/31/08 Manny Rizzo MD [address] [place] [phone] 04/20/10 documented as of this encounter
--- OUTSIDE RECORDS SUMMARY | 2024-06-10 07:12 | XMS_ITS | Encounter Summary ---
Author Organization [facility] Address [address] [place] [address] Care Team Providers Care Rehab Physician Name Role Phone Jean Munoz MD Primary Care Provider Manny Rizzo MD Unavailable Reason for Visit * Reason Comments New Patient Visit Encounter Details Date Type Department Care Team (Latest Contact Info) Description 06/16/2021 14:00 EDT Documentation Visit [facility] - [facility] [address] [place] [address] Social History Tobacco Use Types Packs/Day Years [...] Sign Reading Time Taken Comments Blood Pressure 137/75 06/16/2021 1351 EDT Pulse 81 06/16/2021 1351 EDT Temperature 36.1 ??C (96.9 ??F) 06/16/2021 1351 EDT Respiratory Rate 17 06/16/2021 1351 EDT Oxygen Saturation 97% 06/16/2021 135 EDT Inhaled Oxygen Concentration - - Weight 88 kg (194 lb) 06/16/2021 1351 EDT Height - - Body Mass Index 33.3 06/05/2021 0900 EDT documented in this encounter [...] Info) Description 06/29/2024 14:15 EDT Office Visit [facility] [address] [place] [address] Jean Munoz MD [address] [place] [phone] documented as of this encounter Visit Diagnoses Not on filedocumented in this encounter Care Teams Rehab Physician Relationship Specialty Start Date End Date Jean Munoz MD [address] [place] [phone] PCP - General 12/31/08 Manny Rizzo MD [address] [place] [address] 04/20/10 documented as of this encounter
--- OUTSIDE RECORDS SUMMARY | 2024-06-10 07:12 | XMS_ITS | Encounter Summary ---
Author Organization [facility] Address [address] [place] [address] Care Team Providers Care Egg Pasteurizer Name Role Phone Jean Munoz MD Primary Care Provider Manny Rizzo MD Unavailable Encounter Details Date Type Department Care Team (Late st Contact Info) Description 05/08/2021 Documentation Visit [facility] Hematology & Oncology - [facility] [address] [place] [address] Sebastián Reza, RN Social History [...] Progress Notes * Sebastián Reza, RN - 05/08/2021 4591 EDT Informed of [facility] visit documented in this encounter Plan of Treatment Upcoming Encounters Date Type Department Care Team (Late st Contact Info) Description 06/29/2024 14:15 EDT Office Visit [facility] [address] [place], [place] [phone] Jean Munoz MD [address] [place] [address] documented as of this encounter Visit Diagnoses Not on filedocumented in this encounter Care Teams Egg Pasteurizer Relationship Specialty Start Date End Date Jena Munoz MD [address] [place] [phone] PCP - General 12/31/08 Manny Rizzo MD [address] [place] [address] 04/20/10 documented as of this encounter
--- OUTSIDE RECORDS SUMMARY | 2024-06-10 07:12 | XMS_ITS | Encounter Summary ---
Author Organization [facility] Address [address] [place] [address] Care Team Providers Care Crab Steamer Name Role Phone Jean Munoz MD Primary Care Provider Manny Rizzo MD Unavailable Encounter Details Date Type Department Care Team (Late st Contact Info) Description 06/13/2021 Documentation Visit [facility] Cancer Center Hematology & Oncology - [facility] [address] [place] [address] Sebastián Reza, RN Social History [...] Progress Notes * Sebastián Reza RN - 06/13/2021 4994 EDT Informed of dc related appts documented in this encounter Plan of Treatment Upcoming Encounters Date Type Department Care Team (Late st Contact Info) Description 06/29/2024 14:15 EDT Office Visit [facility] [address] [place], [place] [phone] Jean Munoz MD [address] [place] [address] documented as of this encounter Visit Diagnoses Not on filedocumented in this encounter Care Teams Crab Steamer Relationship Specialty Start Date End Date Jean Munoz MD [address] [place] [phone] PCP - General 12/31/08 Manny Rizzo MD [address] [place] [address] 04/20/10 documented as of this encounter
--- OUTSIDE RECORDS SUMMARY | 2024-06-10 07:12 | XMS_ITS | Encounter Summary ---
Author Organization [facility] Address [address] [place] [address] Care Team Providers Care Studio Potter Name Role Phone Jean Munoz MD Primary Care Provider Manny Rizzo MD Unavailable Reason for Visit * Reason Onset Date Comments Results 06/14/2021 Encounter Details Date Type Department Care Team (Late st Contact Info) Description 06/14/2021 Telephone [facility] [address] [place] [address] Jean Munoz MD [address] [place] [phone] Results Social History Tobacco Use Types Packs/Day Years [...] Max: 4 Tablets 112 Tablet 06/15/2021 06/25/2021 documented in this encounter Miscellaneous Notes * Telephone Encounter - Jean Munoz MD - 06/14/2021 1615 EDT I called Lis[facility], discussed results of biopsy showing non-small cell lung cancer, she is aware of results and has follow-up this week. PET scan pending. I encouraged her to get labs as ordered in April. She continues to have significant pain and feels that hydrocodone 5 mg is not effective for control ling her pain. Describes more pain in the posterior upper back on the right near shoulder. Feels that this is related to where her cancer is located. We discussed increasing current hydrocodone to 6 tabs per day for the next few days. New prescription sent for hydrocodone/APAP 7.5 mg 4 times daily to start when she is out of her current supply, she will fill this tomorrow. Previous prescription for next month for hydrocodone 5 mg was canceled. She will keep her appointment on June 25 as scheduled. documented in this encounter Plan of Treatment Upcoming Encounters Date Type Department Care Team (Late st Contact Info) Description 06/29/2024 14:15 EDT Office Visit [facility] Medicine [facility] [address] [place] [address] Jean Munoz MD [address] [place] [address] documented as of this encounter Visit Diagnoses Not on filedocumented in this encounter Discontinued Medications Medication Sig Discontinue Reason Start Date End Da te HYDROcodone-acetaminophe n (NORCO) 5-325 mg tabletIndications:Chroni c pain syndrome,Chronic use of opiate for therapeutic purpose,Pain medication agreement,Chronic low back pain, unspecified back pain laterality, unspecified whether sciatica present Take 1 Tablet by mouth 4 times daily for 28 days. Daily Max: 4 Tablets 06/23/2021 06/14/2021 HYDROcodone-acetaminophe n (NORCO) 5-325 mg tabletIndications:Chroni c pain syndrome,Chronic use of opiate for therapeutic purpose,Pain medication agreement,Chronic low back pain, unspecified back pain laterality, unspecified whether sciatica present Take 1 Tablet by mouth 4 times daily for 28 days. Daily Max: 4 Tablets Dose adjustment 05/26/2021 06/14/2021 documented as of this encounter Care Teams Studio Potter Relationship Specialty Start Date End Date Jean Munoz MD [address] [place] [phone] PCP - General 12/31/08 Manny Rizzo MD [address] [place] [address] 04/20/10 documented as of this encounter
--- OUTSIDE RECORDS SUMMARY | 2024-06-10 07:13 | XMS_ITS | Encounter Summary ---
Author Organization [facility] Address [address] [place] [address] Care Team Providers Care Electrical And Instrument Engineer Name Role Phone Jean Munoz MD Primary Care Provider Manny Rizzo MD Unavailable Afia Valle MD Unavailable Jesi Leong HEALTH EQUIPMENT SERVICER Unavailable SaloJesi shanks E HEALTH EQUIPMENT SERVICER Unavailable Reason for Visit * Reason Comments Other Encounter Details Date Type Department Care Team (Late st Contact Info) Description [facility] [address] [place], [place] [phone] Jean Munoz MD [address] [place] [address] Other Social History Tobacco Use Types Packs/Day Years Used Date Smoking Tobacco: Former Cigarettes 1.5 37 0 09/13/1975 - 09/13/2012 Smokeless Tobacco: Never Alcohol Use Standard Drinks/Week Comments No 0 (1 standard drink = 0.6 oz pur e alcohol) rarely Interpersonal Safety Answer Date Record ed Physically Hurt Never 04/15/2020 Verbally Threaten Not on file 04/15/2020 Sex and Gender Information Value Date Recorded Sex Assigned at Not on file Gender Identity Female 08/11/2019 16:07 EST Sexual Orientation Not on file COVID-19 Exposure Response Date Recorded In the last month, have you been in contact with someone who was confirmed or suspected to have Coronavirus / COVID-19? No / Unsure 12/10/2020 19:28 EDT documented as of this encounter Functional [...] End Da te doxycycline (VIBRA-TABS) 100 mg tablet TAKE 1 TABLET BY MOUTH EVERY DAY for rosacea 90 Tab 01/05/2021 01/30/2021 SUMAtriptan (IMITREX) 100 mg tabletIndications:Migrain e without status migrainosus, not intractable, unspecified migraine type TAKE 1 TABLET BY MOUTH ONCE NEEDED FOR UP TO 1 DOSE FOR MIGRAINE. 9 Tab 01/05/2021 01/08/2021 pregabalin (LYRICA) 300 mg capsuleIndications:Chroni c low back pain TAKE ONE CAPSULE BY MOUTH TWICE DAILY. daily max: 2 capsules 60 Cap 01/05/2021 01/08/2021 documented in this encounter Miscellaneous Notes * Telephone Encounter - Sebastián Velazquez RN - 01/05/2021 2508 EDT Medication(s) Requested: doxycycline (VIBRA-TABS) 100 mg tablet, sumatriptan (IMITREX) 100 mg tablet, pregabalin (LYRICA) 300 mg capsule Preferred Pharmacy: [id number] Is patient out of medication? Unknown Last Refill Date: 10/21/20, 05/22/20, 06/21/20 Last Visit Date with Ordering Provider: 11/07/20 Next Non-Acute Visit Date Scheduled with Care Team: No. SEBASTIÁN VELAZQUEZ RN 01/05/2021 14:50 documented in this encounter Plan of Treatment Upcoming Encounters Date Type Department Care Team (Late st Contact Info) Description 06/29/2024 14:15 EDT Office Visit [facility] [address] [place] [address] Jean Munoz MD [address] [place] [address] documented as of this encounter [...] Discontinue Reason Start Date End Da te sumatriptan (IMITREX) 100 mg tabletIndications:Migrai ne without status migrainosus, not intractable, unspecified migraine type take 1 tablet by mouth once as needed for up to 1 dose for migraine 05/22/2020 01/05/2021 pregabalin (LYRICA) 300 mg capsuleIndications:Chron ic low back pain TAKE 1 CAPSULE BY MOUTH 2 TIMES DAILY. DAILY MAX: 600 MG 06/21/2020 01/05/2021 doxycycline (VIBRA-TABS) 100 mg tablet TAKE 1 TABLET BY MOUTH EVERY DAY for rosacea 10/21/2020 01/05/2021 documented as of this encounter Additional Health Concerns Infection Onset Date Last Indicated Resolved Time R/O COVID-19 05/15/2022 05/15/2022 05/20/2022 22:1 6 EDT R/O COVID-19 11/14/2022 11/14/2022 11/14/2022 19:1 6 EST documented as of this encounter Care Teams Electrical And Instrument Engineer Relationship Specialty Start Date End Date Jean Munoz MD [address] [place] [phone] PCP - General 12/31/08 Manny Rizzo MD [address] [place] [phone] 04/20/10 Afia Valle MD [address] [place] [address] 2 [place] [phone] Care Team Radiation Oncology 07/02/[address] [facility] [address] [place] [phone] Brick Chimney Builder 12/24/21 09/20/[address] [facility] [address] [place] [phone] Behavioral Health Brick Chimney BuilderManager Of Community Relations Care 10/19/22 01/23/24 documented as of this encounter
--- OUTSIDE RECORDS SUMMARY | 2024-06-10 07:13 | XMS_ITS | Encounter Summary ---
Author Organization [facility] Address [address] [place] [address] Care Team Providers Care Solderer Assembly Repair Name Role Phone Jean Munoz MD Primary Care Provider Manny Rizzo MD Unavailable Reason for Visit * Reason Onset Date Comments Prior Auth, Medication 12/13/2020 Encounter Details Date Type Department Care Team (Late st Contact Info) Description 12/13/2020 Telephone [facility] 3 [place] [address] Jean Munoz MD [address] [place] [address] Prior Auth, Medication Social History [...] Telephone Encounter - Kaitlyn Montero LPN - 12/19/2020 1021 EDT Medication: Fexofenadine 180 mg: Insurance Co: [place] Approval # (if applicable): [id number] Approval dates: 12/13/2020-12/13/21 KAITLYN MONTERO LPN * Telephone Encounter - Kaitlyn Montero LPN - 12/13/2020 1549 EDT [place] sent to insurance ([place] medicaid) for Fexofenadine. Waiting for response. KAITLYN MONTERO LPN documented in this encounter Plan of Treatment Upcoming Encounters Date Type Department Care Team (Late st Contact Info) Description 06/29/2024 14:15 EDT Office Visit [facility] [address] [place] [address] Jean Munoz MD [address] [place] [phone] documented as of this encounter Visit Diagnoses Not on filedocumented in this encounter Care Teams Solderer Assembly Repair Relationship Specialty Start Date End Date Jean Munoz MD [address] [place] [address] PCP - General 12/31/08 Manny Rizzo MD [address] [place] [phone] 04/20/10 documented as of this encounter
--- OUTSIDE RECORDS SUMMARY | 2024-06-10 07:13 | XMS_ITS | Encounter Summary ---
Author Organization [facility] Address [address] [place] [address] Care Team Providers Care Chemist Water Purification Name Role Phone Moi Munoz MD Primary Care Provider Manny Rizzo MD Unavailable Afia Valle MD Unavailable Jesi Leong TOOL GRINDING MACHINE OPERATOR Unavailable SaloJesi shanks TOOL GRINDING MACHINE OPERATOR Unavailable Reason for Visit * Reason Onset Date Comments Medications Refill 10/16/2020 Encounter Details Date Type Department Care Team (Late st Contact Info) Description 10/16/2020 Refill [facility] Medicine [facility] [address] [place] [address] Moi Munoz MD [address] [place] [address] Medications Refill Social History Tobacco [...] Dispensed Refills Start Date End Da te busPIRone (BUSPAR) 15 mg tabletIndications:Anxiety Take 1 Tab by mouth 3 times daily. 270 Tab 3 10/16/2020 02/05/2022 documented in this encounter Miscellaneous Notes * Telephone Encounter - Beverly Barrera RN - 10/16/2020 1632 EST Requested Prescriptions Signed Prescriptions Disp Refills ??? busPIRone (BUSPAR) 15 mg tablet 270 Tab 3 Sig: Take 1 Tab by mouth 3 times daily. Authorizing Provider: MOI MUNOZ Ordering User: BEVERLY BARRERA documented in this encounter Plan of Treatment Upcoming Encounters Date Type Department Care Team (Late st Contact Info) Description 06/29/2024 14:15 EDT Office Visit [facility] [address] [place], [place] [phone] Moi Munoz MD [address] [place] [address] documented as of this encounter Visit Diagnoses Diagnosis Anxiety Anxiety state, unspecified Screening for osteoporosis- [...] documented as of this encounter Care Teams Chemist Water Purification Relationship Specialty Start Date End Date Moi Munoz MD [address] [place] [phone] PCP - General 12/31/08 [place] [address] [place] [phone] 04/20/10 Afia Valle MD [address] [place] [address] 2 [place] [phone] Care Team Radiation Oncology 07/02/21 Jesi Leong [facility] [address] [place] [phone] Orchestra Leader 12/24/21 09/20/22 Jesi Leong LICSW [address] [place] [phone] Behavioral Health Orchestra LeaderEquity Structurer Care 10/19/22 01/23/24 documented as of this encounter
--- OUTSIDE RECORDS SUMMARY | 2024-06-10 07:13 | XMS_ITS | Encounter Summary ---
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 For narcolepsy Daily Max: 10 mg 28 Tab 11/11/2020 01/30/2021 methylphenidate HCl (RITALIN;METHYLIN) 10 mg tabletIndications:Primar y narcolepsy without cataplexy Take 1 Tab by mouth daily for 28 days. For narcolepsy Daily Max: 10 mg 28 Tab 12/09/2020 01/30/2021 methylphenidate HCl (RITALIN;METHYLIN) 10 mg tabletIndications:Primar y narcolepsy without cataplexy Take 1 Tab by mouth daily for 28 days. For narcolepsy Daily Max: 10 mg 28 Tab 01/06/2021 01/30/2021 methylphenidate HCl (RITALIN;METHYLIN) 20 mg tabletIndications:Primar y narcolepsy without cataplexy Take 2 Tabs by mouth daily for 28 days. For narcolepsy Daily Max: 40 mg 56 Tab 11/11/2020 01/30/2021 methylphenidate HCl (RITALIN;METHYLIN) 20 mg tabletIndications:Primar y narcolepsy without cataplexy Take 2 Tabs by mouth daily for 28 days. For narcolepsy Daily Max: 40 mg 56 Tab 12/09/2020 01/30/2021 methylphenidate HCl (RITALIN;METHYLIN) 20 mg tabletIndications:Primar y narcolepsy without cataplexy Take 2 Tabs by mouth daily for 28 days. For narcolepsy Daily Max: 40 mg 56 Tab 01/06/2021 01/30/2021 HYDROcodone-acetaminophe n (NORCO) 5-325 mg tabletIndications:Chroni c pain syndrome,Chronic use of opiate for therapeutic purpose,Chronic low back pain, unspecified back pain laterality, unspecified whether sciatica present,Pain medication agreement Take 1 Tab by mouth 4 times daily for 28 days. For chronic pain Daily Max: 4 Tabs 112 Tab 11/11/2020 01/30/2021 HYDROcodone-acetaminophe n (NORCO) 5-325 mg tabletIndications:Chroni c pain syndrome,Chronic use of opiate for therapeutic purpose,Chronic low back pain, unspecified back pain laterality, unspecified whether sciatica present,Pain medication agreement Take 1 Tab by mouth 4 times daily for 28 days. Daily Max: 4 Tabs 112 Tab 12/09/2020 01/30/2021 HYDROcodone-acetaminophe n (NORCO) 5-325 mg tabletIndications:Chroni c pain syndrome,Chronic use of opiate for therapeutic purpose,Chronic low back pain, unspecified back pain laterality, unspecified whether sciatica present,Pain medication agreement Take 1 Tab by mouth 4 times daily for 28 days. Daily Max: 4 Tabs 112 Tab 01/06/2021 01/30/2021 documented in this encounter Miscellaneous Notes * Telephone Encounter - Jean Munoz MD - 11/08/2020 2248 EST Prescriptions sent. * Telephone Encounter - Cathy Grullon - 11/08/2020 1626 EST Patient calling about her Oxy and Methylphenidate, she is to start on Wednesday but she says she is supposed to be able to pick on Wednesday because that's the only day she can get a ride. Medication(s) Requested: rose Preferred Pharmacy: [facility] Is patient out of medication? Yes Last Refill Date: 08/30/19 Last Visit Date with Ordering Provider: 2/25/21 Next Non-Acute Visit Date Scheduled with Care Team: No. Cathy Grullon 11/08/2020 16:27 documented in this encounter Plan of Treatment Upcoming Encounters Date Type Department Care Team (Late st Contact Info) Description 06/29/2024 14:15 EDT Office Visit [facility] [address] [place], [place] [phone] Jean Munoz MD [address] [place] [phone] documented as of this encounter Visit Diagnoses Diagnosis Chronic pain syndrome Chronic use of opiate for therapeutic purpose Chronic low back pain, unspecified back pain laterality, unspecified whether sciatica present Pain medication agreement Encounter for long-term (current) [...] Discontinue Reason Start Date End Da te HYDROcodone-acetaminoph en (NORCO) 5-325 mg tabletIndications:Chron ic pain syndrome,Chronic use of opiate for therapeutic purpose,Chronic low back pain, unspecified back pain laterality, unspecified whether sciatica present,Pain medication agreement Take 1 Tab by mouth 4 times daily for 28 days. Daily Max: 4 Tabs Reorder 01/06/2021 11/08/2020 HYDROcodone-acetaminoph en (NORCO) 5-325 mg tabletIndications:Chron ic pain syndrome,Chronic use of opiate for therapeutic purpose,Chronic low back pain, unspecified back pain laterality, unspecified whether sciatica present,Pain medication agreement Take 1 Tab by mouth 4 times daily for 28 days. Daily Max: 4 Tabs Reorder 12/09/2020 11/08/2020 HYDROcodone-acetaminoph en (NORCO) 5-325 mg tabletIndications:Chron ic pain syndrome,Chronic use of opiate for therapeutic purpose,Chronic low back pain, unspecified back pain laterality, unspecified whether sciatica present,Pain medication agreement Take 1 Tab by mouth 4 times daily for 28 days. For chronic pain Daily Max: 4 Tabs Reorder 11/11/2020 11/08/2020 methylphenidate HCl (RITALIN;METHYLIN) 20 mg tabletIndications:Prima ry narcolepsy without cataplexy Take 2 Tabs by mouth daily for 28 days. For narcolepsy Daily Max: 40 mg Reorder 01/06/2021 11/08/2020 methylphenidate HCl (RITALIN;METHYLIN) 20 mg tabletIndications:Prima ry narcolepsy without cataplexy Take 2 Tabs by mouth daily for 28 days. For narcolepsy Daily Max: 40 mg Reorder 12/09/2020 11/08/2020 methylphenidate HCl (RITALIN;METHYLIN) 20 mg tabletIndications:Prima ry narcolepsy without cataplexy Take 2 Tabs by mouth daily for 28 days. For narcolepsy Daily Max: 40 mg Reorder 11/11/2020 11/08/2020 methylphenidate HCl (RITALIN;METHYLIN) 10 mg tabletIndications:Prima ry narcolepsy without cataplexy Take 1 Tab by mouth daily for 28 days. For narcolepsy Daily Max: 10 mg Reorder 01/06/2021 11/08/2020 methylphenidate HCl (RITALIN;METHYLIN) 10 mg tabletIndications:Prima ry narcolepsy without cataplexy Take 1 Tab by mouth daily for 28 days. For narcolepsy Daily Max: 10 mg Reorder 12/09/2020 11/08/2020 methylphenidate HCl (RITALIN;METHYLIN) 10 mg tabletIndications:Prima ry narcolepsy without cataplexy Take 1 Tab by mouth daily for 28 days. For narcolepsy Daily Max: 10 mg Reorder 11/11/2020 11/08/2020 documented as of this encounter Care Teams Death Clearance Coordinator Relationship Specialty Start Date End Date Jean Munoz MD [address] [place] [phone] PCP - General 12/31/08 Manny Rizzo MD [address] [place] [address] 04/20/10 documented as of this encounter
--- OUTSIDE RECORDS SUMMARY | 2024-06-10 07:13 | XMS_ITS | Encounter Summary ---
Author Organization [facility] Address [address] [place] [address] Care Team Providers Care Dairy Farmer Name Role Phone Jean Munoz MD Primary Care Provider Manny Rizzo MD Unavailable Reason for Visit * Reason Comments Other Encounter Details Date Type Department Care Team (Late st Contact Info) Description 08/31/2020 [facility] [address] [place] [address] Jean Munoz MD [address] [place] [phone] Other Social History Tobacco Use Types [...] [facility] [address] [place] [address] Jean Munoz MD [address] [place] [phone] documented as of this encounter Visit Diagnoses Diagnosis Migraine without status migrainosus, not intractable, unspecified migraine type Panlobular emphysema (HCC-CMS) Other emphysema Screening for osteoporosis- Primary Special screening for osteoporosis Primary narcolepsy without cataplexy Chronic pain syndrome Chronic low back pain Lumbago Chronic use of opiate for therapeutic purpose Pain medication agreement Encounter for long-term (current) use of other medications Screen for colon cancer Special screening for malignant neoplasms, colon documented in this encounter Care Teams Dairy Farmer Relationship Specialty Start Date End Date Jean Munoz MD [address] [place] [phone] PCP - General 12/31/08 Manny Rizzo MD [address] [place] [address] 04/20/10 documented as of this encounter
--- OUTSIDE RECORDS SUMMARY | 2024-06-10 07:13 | XMS_ITS | Encounter Summary ---
Author Organization [facility] Address [address] [place] [address] Care Team Providers Care Aircraft Seat Upholsterer Name Role Phone Jean Munoz MD Primary Care Provider Manny Rizzo MD Unavailable Afia Valle MD Unavailable [phone] Jesi Leong PHOTONIC LABORATORY TECHNICIAN Unavailable [phone] SaloJesi shanks E PHOTONIC LABORATORY TECHNICIAN Unavailable Reason for Visit * Reason Comments Other Encounter Details Date Type Department Care Team (Late st Contact Info) Description [facility] [address] [place], [place] [id number] Jean Munoz MD [address] [place] [phone] Other Social History Tobacco Use [...] Dispensed Refills Start Date End Da te montelukast (SINGULAIR) 10 mg tabletIndications:Allerg ic rhinitis, unspecified seasonality, unspecified trigger TAKE 1 TABLET BY MOUTH EVERY DAY for allergies 90 Tab 3 11/06/2020 11/24/2021 documented in this encounter Miscellaneous Notes * Telephone Encounter - Sunil Vyas RN - 11/06/2020 1713 EST Medication(s) Requested: Montelukast 10 mg Preferred Pharmacy: [facility] Is patient out of medication? Unknown Last Refill Date: 10/28/19 for year Last Visit Date with Ordering Provider: 08/15/20 Next Non-Acute Visit Date Scheduled with Care Team: Yes. SUNIL VYAS RN 11/06/2020 17:13 documented in this encounter Plan of Treatment Upcoming Encounters Date Type Department Care Team (Late st Contact Info) Description 06/29/2024 14:15 EDT Office Visit [facility] [address] [place] [address] Jean Munoz MD [address] [place] [phone] documented as of this encounter Visit Diagnoses Diagnosis Allergic rhinitis, unspecified seasonality, unspecified trigger Screening [...] Discontinue Reason Start Date End Da te montelukast (SINGULAIR) 10 mg tabletIndications:Aller gic rhinitis, unspecified seasonality, unspecified trigger Take 1 Tab by mouth daily. For allergies 10/28/2019 11/06/2020 documented as of this encounter Additional Health Concerns Infection Onset Date Last Indicated Resolved Time R/O COVID-19 05/15/2022 05/15/2022 05/20/2022 22:1 6 EDT R/O COVID-19 11/14/2022 11/14/2022 11/14/2022 19:1 6 EST documented as of this encounter Care Teams Aircraft Seat Upholsterer Relationship Specialty Start Date End Date Jean Munoz MD [address] [place] [phone] PCP - General 12/31/08 Manny Rizzo MD [address] [place] [phone] 04/20/10 Afia Valle MD [address] [facility], Level [address] [place] [phone] Care Team Radiation Oncology 07/02/21 Jesi Leong, [facility] [address] [place] [phone] Assistant Chief Nursing Officer 12/24/21 09/20/22 Jesi Leong, [facility] [address] [place] [phone] Behavioral Health Assistant Chief Nursing OfficerSpin Tank Tender Care 10/19/22 01/23/24 documented as of this encounter
--- OUTSIDE RECORDS SUMMARY | 2024-06-10 07:13 | XMS_ITS | Encounter Summary ---
Author Organization [facility] Address [address] [place] [address] Care Team Providers Care Senior Product Integrity Engineer Name Role Phone Jean Munoz MD Primary Care Provider Manny Rizzo MD Unavailable Reason for Visit * Reason Onset Date Comments Appointment Related 11/08/2020 Encounter Details Date Type Department Care Team (Late st Contact Info) Description 11/08/2020 Telephone [facility] [address] [place] [address] Jean Munoz MD [address] [place] [phone] Appointment Related Social History Tobacco [...] encounter Miscellaneous Notes * Telephone Encounter - Zuri Delaney - 11/08/2020 0938 EST -Return in about 12 weeks (around 01/30/2021) for SERA video chronic pain. documented in this encounter Plan of Treatment Upcoming Encounters Date Type Department Care Team (Late st Contact Info) Description 06/29/2024 14:15 EDT Office Visit [facility] [address] [place] [address] Jean Munoz MD [address] [place] [place] [phone] documented as of this encounter Visit Diagnoses Not on filedocumented in this encounter Care Teams Senior Product Integrity Engineer Relationship Specialty Start Date End Date Jean Munoz MD [address] [place] [phone] PCP - General 12/31/08 Manny Rizzo MD [address] [place] [phone] 04/20/10 documented as of this encounter
--- OUTSIDE RECORDS SUMMARY | 2024-06-10 07:13 | XMS_ITS | Encounter Summary ---
Author Organization [facility] Address [address] [place] [address] Care Team Providers Care Field Support Representative Name Role Phone Jean Munoz MD Primary Care Provider Manny Rizzo MD Unavailable Reason for Visit * Reason Comments Other Encounter Details Date Type Department Care Team (Late st Contact Info) Description 04/16/2021 [facility] [address] [place] [address] Jean Munoz MD [address] [place] [phone] Other Social History Tobacco Use Types [...] DAY 28 Tablet 2 04/20/2021 07/15/2021 documented in this encounter Miscellaneous Notes * Telephone Encounter - Lizz Negro RN - 04/17/2021 0851 EDT Medication(s) Requested: ambien 5 mg Preferred Pharmacy: [facility] Is patient out of medication? unknown Last Refill Date: 02/20/21 Last Visit Date with Ordering Provider: 01/30/21 Next Non-Acute Visit Date Scheduled with Care Team: 04/24/21 LIZZ NEGRO RN 04/17/2021 8:52 documented in this encounter Plan of Treatment Upcoming Encounters Date Type Department Care Team (Late st Contact Info) Description 06/29/2024 14:15 EDT Office Visit [facility] [address] [place], [place] [phone] Jean Munoz MD [address] [place] [phone] documented as of this encounter Visit Diagnoses [...] TAKE 1 TABLET BY MOUTH AT BEDTIME NEEDED *LIMIT 1 PER DAY 02/20/2021 04/17/2021 documented as of this encounter Care Teams Field Support Representative Relationship Specialty Start Date End Date Jean Munoz MD [address] [place] [phone] PCP - General 12/31/08 Manny Rizzo MD [address] [place] [phone] 04/20/10 documented as of this encounter
--- OUTSIDE RECORDS SUMMARY | 2024-06-10 07:13 | XMS_ITS | Encounter Summary ---
Author Organization [facility] Address [address] [place] [address] Care Team Providers Care Classified Advertising Clerk Name Role Phone Moi Munoz MD Primary Care Provider Manny Rizzo MD Unavailable Reason for Referral * Radiology Services (Routine) - Closed Specialty Diagnoses / Procedures Referred By [facility] t Referred To Contact Diagnoses Tobacco dependence in remission Encounter for screening for lung cancer Procedures CT CHEST LOW DOSE LUNG SCREENING Moi Munoz MD [address] [place] [phone] Referral ID Status Reason Start Date Expiration Date Visits Re quested Visits Authorized [id number] Closed 11/25/2020 1 1 Reason for Visit * Reason Comments Chronic Pain Encounter Details Date Type Department Care Team (Late st Contact Info) Description 11/07/2020 13:15 EST Telemedicine [facility] [address] [place] [address] Moi Munoz MD [address] [place] [phone] Chronic pain syndrome (Primary Dx); Chronic use of opiate for therapeutic purpose; Chronic low back pain, unspecified back pain laterality, unspecified whether sciatica present; Pain medication agreement; Insomnia, unspecified type; Primary narcolepsy without cataplexy; Chronic obstructive pulmonary disease, unspecified COPD type ([facility]); Allergic rhinitis, unspecified seasonality, unspecified trigger; Impaired glucose tolerance; Obesity (BMI 30-39.9); Tobacco dependence in remission; Encounter for screening for lung cancer; Screen for colon cancer; Nausea; Rosacea Social History Tobacco Use Types Packs/Day Years [...] Daily Max: 10 mg 28 Tab 11/11/2020 11/08/2020 methylphenidate HCl (RITALIN;METHYLIN) 10 mg tabletIndications:Primar y narcolepsy without cataplexy Take 1 Tab by mouth daily for 28 days. For narcolepsy Daily Max: 10 mg 28 Tab 12/09/2020 11/08/2020 methylphenidate HCl (RITALIN;METHYLIN) 10 mg tabletIndications:Primar y narcolepsy without cataplexy Take 1 Tab by mouth daily for 28 days. For narcolepsy Daily Max: 10 mg 28 Tab 01/06/2021 11/08/2020 methylphenidate HCl (RITALIN;METHYLIN) 20 mg tabletIndications:Primar y narcolepsy without cataplexy Take 2 Tabs by mouth daily for 28 days. For narcolepsy Daily Max: 40 mg 56 Tab 11/11/2020 11/08/2020 methylphenidate HCl (RITALIN;METHYLIN) 20 mg tabletIndications:Primar y narcolepsy without cataplexy Take 2 Tabs by mouth daily for 28 days. For narcolepsy Daily Max: 40 mg 56 Tab 12/09/2020 11/08/2020 methylphenidate HCl (RITALIN;METHYLIN) 20 mg tabletIndications:Primar y narcolepsy without cataplexy Take 2 Tabs by mouth daily for 28 days. For narcolepsy Daily Max: 40 mg 56 Tab 01/06/2021 11/08/2020 HYDROcodone-acetaminophe n (NORCO) 5-325 mg tabletIndications:Chroni c pain syndrome,Chronic use of opiate for therapeutic purpose,Chronic low back pain, unspecified back pain laterality, unspecified whether sciatica present,Pain medication agreement Take 1 Tab by mouth 4 times daily for 28 days. For chronic pain Daily Max: 4 Tabs 112 Tab 11/11/2020 11/08/2020 HYDROcodone-acetaminophe n (NORCO) 5-325 mg tabletIndications:Chroni c pain syndrome,Chronic use of opiate for therapeutic purpose,Chronic low back pain, unspecified back pain laterality, unspecified whether sciatica present,Pain medication agreement Take 1 Tab by mouth 4 times daily for 28 days. Daily Max: 4 Tabs 112 Tab 12/09/2020 11/08/2020 HYDROcodone-acetaminophe n (NORCO) 5-325 mg tabletIndications:Chroni c pain syndrome,Chronic use of opiate for therapeutic purpose,Chronic low back pain, unspecified back pain laterality, unspecified whether sciatica present,Pain medication agreement Take 1 Tab by mouth 4 times daily for 28 days. Daily Max: 4 Tabs 112 Tab 01/06/2021 11/08/2020 HYDROcodone-acetaminophe n (NORCO) 5-325 mg tabletIndications:Chroni c pain syndrome,Chronic use of opiate for therapeutic purpose,Chronic low back pain, unspecified back pain laterality, unspecified whether sciatica present,Pain medication agreement Take 1 Tab by mouth 4 times daily for 28 days. For chronic pain Daily Max: 4 Tabs 112 Tab 11/11/2020 11/07/2020 HYDROcodone-acetaminophe n (NORCO) 5-325 mg tabletIndications:Chroni c pain syndrome,Chronic use of opiate for therapeutic purpose,Chronic low back pain, unspecified back pain laterality, unspecified whether sciatica present,Pain medication agreement Take 1 Tab by mouth 4 times daily for 28 days. Daily Max: 4 Tabs 112 Tab 12/09/2020 11/07/2020 HYDROcodone-acetaminophe n (NORCO) 5-325 mg tabletIndications:Chroni c pain syndrome,Chronic use of opiate for therapeutic purpose,Chronic low back pain, unspecified back pain laterality, unspecified whether sciatica present,Pain medication agreement Take 1 Tab by mouth 4 times daily for 28 days. Daily Max: 4 Tabs 112 Tab 01/06/2021 11/07/2020 montelukast (SINGULAIR) 10 mg tabletIndications:Allerg ic rhinitis, unspecified seasonality, unspecified trigger Take 1 Tab by mouth daily. For allergies 90 Tab 3 11/07/2020 09/23/2023 methylphenidate HCl (RITALIN;METHYLIN) 10 mg tabletIndications:Primar y narcolepsy without cataplexy Take 1 Tab by mouth daily for 28 days. For narcolepsy Daily Max: 10 mg 28 Tab 11/11/2020 11/07/2020 methylphenidate HCl (RITALIN;METHYLIN) 10 mg tabletIndications:Primar y narcolepsy without cataplexy Take 1 Tab by mouth daily for 28 days. For narcolepsy Daily Max: 10 mg 28 Tab 12/09/2020 11/07/2020 methylphenidate HCl (RITALIN;METHYLIN) 10 mg tabletIndications:Primar y narcolepsy without cataplexy Take 1 Tab by mouth daily for 28 days. For narcolepsy Daily Max: 10 mg 28 Tab 01/06/2021 11/07/2020 methylphenidate HCl (RITALIN;METHYLIN) 20 mg tabletIndications:Primar y narcolepsy without cataplexy Take 2 Tabs by mouth daily for 28 days. For narcolepsy Daily Max: 40 mg 56 Tab 11/11/2020 11/07/2020 methylphenidate HCl (RITALIN;METHYLIN) 20 mg tabletIndications:Primar y narcolepsy without cataplexy Take 2 Tabs by mouth daily for 28 days. For narcolepsy Daily Max: 40 mg 56 Tab 12/09/2020 11/07/2020 methylphenidate HCl (RITALIN;METHYLIN) 20 mg tabletIndications:Primar y narcolepsy without cataplexy Take 2 Tabs by mouth daily for 28 days. For narcolepsy Daily Max: 40 mg 56 Tab 01/06/2021 11/07/2020 roflumilast (DALIRESP) 500 mcg tabletIndications:Chroni c obstructive pulmonary disease, unspecified COPD type (HCC-CMS) Take 1 Tab by mouth daily. 90 Tab 3 11/07/2020 11/24/2021 documented in this encounter Progress Notes * Kaitlyn Montero LPN - 11/07/2020 1315 EST [facility] [place] [employer] [employer] [facility] query has been completed. Zolpidem 5 mg: Filled: 10/19/20 Quantity: 28 tabs for 28 days Hydrocodone-acetaminophen 5-325 mg: Filled: 10/12/20 Quantity: 112 tabs for 28 days Methylphenidate 10 mg; Filled: 10/12/20 Quantity: 28 tabs for 28 days Methylphenidate 20 mg: Filled: 10/12/20 Quantity: 56 tabs for 28 days Lyrica 300 mg: Filled: 10/12/20 Quantity: 60 tabs for 30 days * Moi Munoz MD - 11/07/2020 1315 EST Family Medicine Video Visit Assessment & Plan Diagnoses and all orders for this visit: Chronic pain syndrome Chronic use of opiate for therapeutic purpose Chronic low back pain, unspecified back pain laterality, unspecified whether sciatica present Pain medication agreement - HYDROcodone-acetaminophen (NORCO) 5-325 mg tablet - HYDROcodone-acetaminophen (NORCO) 5-325 mg tablet - HYDROcodone-acetaminophen (NORCO) 5-325 mg tablet Chronic pain stable. No recent urine screen. Needs consent/agreement etc. We will send paperwork and mail. Prescriptions renewed today. Recheck 12 weeks. We discussed that it is unclear whether medications might be contribute to her symptoms, could consider dose reduction if possible. Insomnia, unspecified type Uses zolpidem as needed for sleep, did not request refill for this now. Readdress next visit. Couldrenew if needed before then. Primary narcolepsy without cataplexy - methylphenidate HCl (RITALIN;METHYLIN) 20 mg tablet - methylphenidate HCl (RITALIN;METHYLIN) 20 mg tablet - methylphenidate HCl (RITALIN;METHYLIN) 20 mg tablet - methylphenidate HCl (RITALIN;METHYLIN) 10 mg tablet - methylphenidate HCl (RITALIN;METHYLIN) 10 mg tablet - methylphenidate HCl (RITALIN;METHYLIN) 10 mg tablet Stable, methylphenidate renewed today. Chronic obstructive pulmonary disease, unspecified COPD type ([facility]) - roflumilast (DALIRESP) 500 mcg tablet Allergic rhinitis, unspecified seasonality, unspecified trigger - montelukast (SINGULAIR) 10 mg tablet Impaired glucose tolerance Will need repeat A1c in the future Obesity (BMI 30-39.9) Not addressed today Tobacco dependence in remission - CT CHEST LOW DOSE LUNG SCREENING Encounter for screening for lung cancer - CT CHEST LOW DOSE LUNG SCREENING Screen for colon cancer Declines colonoscopy for screening now so we will postpone this to the future. Nausea Nausea and vomiting intermittent and recurrent. Etiology unclear but could represent GERD, gastroparesis, medication side effects. She is comfortable managing symptoms for now but would recommend further evaluation if symptoms persist or worsen. Rosacea Is currently on doxycycline, unclear if contributing to symptoms. Consider dose reduction or alternative treatment if possible. She will consider this. Return in about 12 weeks (around 01/30/2021) for SERA video chronic pain. Patient education was direct. Barriers were assessed and addressed as needed. Subjective Liset is a 59-year-old female with chronic pain on long-term opiate therapy scheduled for follow-up video visit. Recently she has had trouble with nausea and vomiting with aching sensation in her stomach. Denies significant abdominal pain. No fever, some chills and sweats, using promethazine for nausea which helps. Also has diarrhea but no blood in stool. No urinary symptoms. Do not think is related to food. She has had intermittent nausea in the past. Chronic pain is otherwise stable. Due for medications with start date on Wednesday. She fills her prescriptions on Saturdays. Also needs methylphenidate which she takes for narcolepsy. Previously followed by sleep clinic but we are managing her me dication for now. Does not want to do colonoscopy for screening yet but willing to do a lung cancerscreening CT scan. Data reviewed this visit: problem list/past medical history, current medications, allergies, last visit note and health maintenance items Review of Systems - See HPI TELEMEDICINE VIDEO VISIT Today's visit was provided through telemedicine video conferencing: The location of the patient : Home The location of the provider: Home office The following staff and their role did participate in today's encounter visit: Moi Munoz MD Objective LMP 01/11/1987 Physical Exam on video she is lying bed with head propped up with pillows. Alert, no distress, no visible jaundice. documented in this encounter Miscellaneous Notes * Addendum Note - Moi Munoz MD - 11/07/2020 1315 ESTAddended by: MOI MUNOZ on: 11/07/2020 14:12 Modules accepted: Orders documented in this encounter Plan of Treatment Upcoming Encounters Date Type Department Care Team (Late st Contact Info) Description 06/29/2024 14:15 EDT Office Visit [facility] [address] [place] [address] Moi Munoz MD [address] [place] [phone] documented as of this encounter Results * CT CHEST LOW [...] 91 series 201). ACR Reportable Incidentals: ??None Moi Munoz MD IMG CT ORDERABL ES documented in this encounter Visit Diagnoses Diagnosis Chronic pain syndrome- Primary Chronic use of opiate for therapeutic purpose Chronic low back pain, unspecified back pain laterality, unspecified whether sciatica present Pain medication agreement Encounter for long-term (current) use of other medications Insomnia, unspecified type Primary narcolepsy without cataplexy Chronic obstructive pulmonary disease, unspecified COPD type ([facility]) Allergic rhinitis, unspecified seasonality, unspecified trigger Impaired glucose tolerance Impaired glucose tolerance test Obesity (BMI 30-39.9) Obesity, unspecified Tobacco dependence in remission Personal history of tobacco use, presenting hazards to health Encounter for screening for lung cancer Screen for colon cancer Special screening for malignant neoplasms, colon Nausea Nausea alone Rosacea Tobacco dependence in remission Personal history of [...] Discontinue Reason Start Date End Da te DALIRESP 500 mcg tabletIndications:Chron ic obstructive pulmonary disease, unspecified COPD type ([facility]) TAKE 1 TABLET BY MOUTH EVERY DAY Reorder 09/02/2020 10/31/2020 HYDROcodone-acetaminoph en (NORCO) 5-325 mg tabletIndications:Chron ic pain syndrome,Chronic use of opiate for therapeutic purpose,Chronic low back pain, unspecified back pain laterality, unspecified whether sciatica present,Pain medication agreement Take 1 Tab by mouth 4 times daily for 28 days. Daily Max: 4 Tabs Reorder 10/14/2020 10/31/2020 HYDROcodone-acetaminoph en (NORCO) 5-325 mg tabletIndications:Chron ic pain syndrome,Chronic use of opiate for therapeutic purpose,Chronic low back pain, unspecified back pain laterality, unspecified whether sciatica present,Pain medication agreement Take 1 Tab by mouth 4 times daily for 28 days. Daily Max: 4 Tabs Reorder 09/16/2020 10/31/2020 HYDROcodone-acetaminoph en (NORCO) 5-325 mg tabletIndications:Chron ic pain syndrome,Chronic use of opiate for therapeutic purpose,Chronic low back pain, unspecified back pain laterality, unspecified whether sciatica present,Pain medication agreement Take 1 Tab by mouth 4 times daily for 28 days. For chronic pain Daily Max: 4 Tabs Reorder 08/19/2020 10/31/2020 methylphenidate HCl (RITALIN;METHYLIN) 20 mg tablet Take 2 Tabs by mouth daily for 28 days. For narcolepsy Daily Max: 40 mg Reorder 10/14/2020 10/31/2020 methylphenidate HCl (RITALIN;METHYLIN) 20 mg tablet Take 2 Tabs by mouth daily for 28 days. For narcolepsy Daily Max: 40 mg Reorder 09/16/2020 10/31/2020 methylphenidate HCl (RITALIN;METHYLIN) 20 mg tablet Take 2 Tabs by mouth daily for 28 days. For narcolepsy Daily Max: 40 mg Reorder 08/19/2020 10/31/2020 methylphenidate HCl (RITALIN;METHYLIN) 10 mg tablet Take 1 Tab by mouth daily for 28 days. For narcolepsy Daily Max: 10 mg Reorder 10/14/2020 10/31/2020 methylphenidate HCl (RITALIN;METHYLIN) 10 mg tablet Take 1 Tab by mouth daily for 28 days. For narcolepsy Daily Max: 10 mg Reorder 09/16/2020 10/31/2020 methylphenidate HCl (RITALIN;METHYLIN) 10 mg tablet Take 1 Tab by mouth daily for 28 days. For narcolepsy Daily Max: 10 mg Reorder 08/19/2020 10/31/2020 methylphenidate HCl (RITALIN;METHYLIN) 20 mg tabletIndications:Prima ry narcolepsy without cataplexy Take 2 Tabs by mouth daily for 28 days. For narcolepsy Daily Max: 40 mg Reorder 01/06/2021 11/07/2020 methylphenidate HCl (RITALIN;METHYLIN) 20 mg tabletIndications:Prima ry narcolepsy without cataplexy Take 2 Tabs by mouth daily for 28 days. For narcolepsy Daily Max: 40 mg Reorder 12/09/2020 11/07/2020 methylphenidate HCl (RITALIN;METHYLIN) 20 mg tabletIndications:Prima ry narcolepsy without cataplexy Take 2 Tabs by mouth daily for 28 days. For narcolepsy Daily Max: 40 mg Reorder 11/11/2020 11/07/2020 methylphenidate HCl (RITALIN;METHYLIN) 10 mg tabletIndications:Prima ry narcolepsy without cataplexy Take 1 Tab by mouth daily for 28 days. For narcolepsy Daily Max: 10 mg Reorder 01/06/2021 11/07/2020 methylphenidate HCl (RITALIN;METHYLIN) 10 mg tabletIndications:Prima ry narcolepsy without cataplexy Take 1 Tab by mouth daily for 28 days. For narcolepsy Daily Max: 10 mg Reorder 12/09/2020 11/07/2020 methylphenidate HCl (RITALIN;METHYLIN) 10 mg tabletIndications:Prima ry narcolepsy without cataplexy Take 1 Tab by mouth daily for 28 days. For narcolepsy Daily Max: 10 mg Reorder 11/11/2020 11/07/2020 HYDROcodone-acetaminoph en (NORCO) 5-325 mg tabletIndications:Chron ic pain syndrome,Chronic use of opiate for therapeutic purpose,Chronic low back pain, unspecified back pain laterality, unspecified whether sciatica present,Pain medication agreement Take 1 Tab by mouth 4 times daily for 28 days. Daily Max: 4 Tabs Reorder 01/06/2021 11/07/2020 HYDROcodone-acetaminoph en (NORCO) 5-325 mg tabletIndications:Chron ic pain syndrome,Chronic use of opiate for therapeutic purpose,Chronic low back pain, unspecified back pain laterality, unspecified whether sciatica present,Pain medication agreement Take 1 Tab by mouth 4 times daily for 28 days. Daily Max: 4 Tabs Reorder 12/09/2020 11/07/2020 HYDROcodone-acetaminoph en (NORCO) 5-325 mg tabletIndications:Chron ic pain syndrome,Chronic use of opiate for therapeutic purpose,Chronic low back pain, unspecified back pain laterality, unspecified whether sciatica present,Pain medication agreement Take 1 Tab by mouth 4 times daily for 28 days. For chronic pain Daily Max: 4 Tabs Reorder 11/11/2020 11/07/2020 documented as of this encounter Care Teams Classified Advertising Clerk Relationship Specialty Start Date End Date Moi Munoz MD [address] [place] [phone] PCP - General 12/31/08 Manny Rizzo MD [address] [place] [address] 04/20/10 documented as of this encounter
--- OUTSIDE RECORDS SUMMARY | 2024-06-10 07:13 | XMS_ITS | Encounter Summary ---
Author Organization [facility] Address [address] [place] [address] Care Team Providers Care Managing Manager Name Role Phone Jean Munoz MD Primary Care Provider Manny Rizzo MD Unavailable Afia Valle MD Unavailable [phone] Jesi Leong OPERATIONS ANALYST Unavailable [phone] SaloJesi shanks E OPERATIONS ANALYST Unavailable Reason for Visit * Reason Comments Other Encounter Details Date Type Department Care Team (Late st Contact Info) Description 07/02/[address] [facility] Family Medicine [facility] [address] [place], [place] [phone] Jean Munoz MD [address] [place] [address] Other Social History Tobacco Use [...] have Coronavirus / COVID-19? No / Unsure 06/05/2020 14:26 EDT documented as of this encounter Functional [...] MOUTH EVERY SIX HOURS NEEDED FOR NAUSEA 25 Tab 07/03/2020 10/23/2020 documented in this encounter Miscellaneous Notes * Telephone Encounter - Yue Ferrer RN - 07/03/2020 1551 EDT Medication(s) Requested: myles Preferred Pharmacy: [facility] Is patient out of medication? Last Refill Date: 07/14/19 Last Visit Date with Ordering Provider: 05/23/20 Next Non-Acute Visit Date Scheduled with Care Team: 08/15/20 JOSEPH FERRER RN 07/03/2020 15:51 documented in this encounter Plan of Treatment Upcoming Encounters Date Type Department Care Team (Late st Contact Info) Description 06/29/2024 14:15 EDT Office Visit [address] [address] Jean Munoz MD [address] [place] [address] documented as of this encounter [...] MOUTH EVERY SIX HOURS NEEDED FOR NAUSEA Reorder 07/14/2019 07/03/2020 documented as of this encounter Additional Health Concerns Infection Onset Date Last Indicated Resolved Time R/O COVID-19 05/15/2022 05/15/2022 05/20/2022 22:1 6 EDT R/O COVID-19 11/14/2022 11/14/2022 11/14/2022 19:1 6 EST documented as of this encounter Care Teams Managing Manager Relationship Specialty Start Date End Date Jean Munoz MD [address] [place] [address] PCP - General 12/31/08 Manny Rizzo MD [facility] [place] [phone] 04/20/10 Afia Valle MD [address] [facility] 2 [place] [phone] Care Team Radiation Oncology 07/02/21 Jesi Leong [facility] [address] [place] [address] Short Haul Driver 12/24/21 09/20/22 Jesi Leong, [facility] [address] [place] [phone] Behavioral Health Short Haul DriverGas Appliance Adjuster Care 10/19/22 01/23/24 documented as of this encounter
--- OUTSIDE RECORDS SUMMARY | 2024-06-10 07:13 | XMS_ITS | Encounter Summary ---
Author Organization [facility] Address [address] [place] [address] Care Team Providers Care Radio Division Lieutenant Name Role Phone Jean Munoz MD Primary Care Provider Manny Rizzo MD Unavailable Reason for Visit * Reason Onset Date Comments Appointment Related 10/02/2020 Encounter Details Date Type Department Care Team (Late st Contact Info) Description 10/02/2020 Telephone [facility] [address] [place] [address] Jean Munzo MD [address] [place] [address] Appointment Related Social History Tobacco [...] encounter Miscellaneous Notes * Telephone Encounter - Carmita Franklin - 10/02/2020 1152 EST Tried to call all the number but none of them are working * Telephone Encounter - Carmita Franklin - 10/02/2020 1151 EST ----- Message from Jean Munoz MD sent at 10/01/2020 8:32 EST ----- Regarding: Follow up visit Please call Liset to schedule follow up phone or video visit before 11/11 for medication follow up 15 min, thanks. documented in this encounter Plan of Treatment Upcoming Encounters Date Type Department Care Team (Late st Contact Info) Description 06/29/2024 14:15 EDT Office Visit [facility] [address] [place] [address] Jean Munoz MD [address] [place] [phone] documented as of this encounter Visit Diagnoses Not on filedocumented in this encounter Care Teams Radio Division Lieutenant Relationship Specialty Start Date End Date Jean Munoz MD [address] [place] [phone] PCP - General 12/31/08 Manny Rizzo MD [address] [place] [phone] 04/20/10 documented as of this encounter
--- OUTSIDE RECORDS SUMMARY | 2024-06-10 07:13 | XMS_ITS | Encounter Summary ---
Author Organization [facility] Address [address] [place] [address] Care Team Providers Care Edge Banding Off Bearer Name Role Phone Jean Munoz MD Primary Care Provider Manny Rizzo MD Unavailable Reason for Visit * Reason Comments Other Encounter Details Date Type Department Care Team (Late st Contact Info) Description 09/08/2020 [facility] [address] [place] [address] Jean Munoz MD [address] [place] [phone] Other Social History Tobacco Use Types [...] Dispensed Refills Start Date End Da te fexofenadine (JUDITH) 180 mg tabletIndications:Allerg ic rhinitis, unspecified seasonality, unspecified trigger TAKE 1 TABLET BY MOUTH EVERY DAY for allergies 90 Tab 3 09/10/2020 08/26/2021 documented in this encounter Miscellaneous Notes * Telephone Encounter - Sunil Vyas RN - 09/10/2020 0939 EST Medication(s) Requested: fexofendadine 180 mg Preferred Pharmacy: [facility] Is patient out of medication? Unknown Last Refill Date: 10.05.19 for 90 with 3 refills Last Visit Date with Ordering Provider: 08/15/20 Next Non-Acute Visit Date Scheduled with Care Team: No. SUNIL VYAS RN 09/10/2020 9:39 documented in this encounter Plan of Treatment Upcoming Encounters Date Type Department Care Team (Late st Contact Info) Description 06/29/2024 14:15 EDT [facility] [address] [place] [address] Jean Munoz MD [address] [place] [address] documented as of this encounter Visit Diagnoses Diagnosis Allergic rhinitis, unspecified seasonality, unspecified trigger- Primary Screening for osteoporosis- Primary Special screening [...] 1 Tab by mouth daily. For allergies 10/05/2019 09/10/2020 documented as of this encounter Care Teams Edge Banding Off Bearer Relationship Specialty Start Date End Date Jean Munoz MD [address] [place] [phone] PCP - General 12/31/08 Manny Rizzo MD [address] [place] [phone] 04/20/10 documented as of this encounter
--- OUTSIDE RECORDS SUMMARY | 2024-06-10 07:13 | XMS_ITS | Encounter Summary ---
Author Organization [facility] Address [address] [place] [address] Care Team Providers Care Cash Register Repairer Name Role Phone Jean Munoz MD Primary Care Provider Manny Rizzo MD Unavailable Afia Valle MD Unavailable Jesi Leong UPSETTER Unavailable SaloJesi shanks E UPSETTER Unavailable [phone] Reason for Visit * Reason Comments Other Encounter Details Date Type Department Care Team (Late st Contact Info) Description [facility] [address] [place], [place] [phone] Jean Munoz MD [address] [place] [address] Other Social History Tobacco Use [...] Telephone Encounter - Sunil Vyas RN - 11/01/2020 1658 EST Refilled 10/25/20 * Telephone Encounter - Jean Munoz MD - 10/11/2020 1551 EST Please call patient to verify. I believe that she uses each of these at various times but it is important to verify this and to make sure that she is not using them together. Okay to renew medications if needed. * Telephone Encounter - Sunil Vyas RN - 10/11/2020 1539 EST Medication(s) Requested: Zofran, promethazine 25 mg [facility]acy[facility] Is patient out of medication? Unknown Last Refill Date: 07/14/19 for 30 with 5 RF, 07/03/20 25 with 0 RF Last Visit Date with Ordering Provider: 08/15/20 Next Non-Acute Visit Date Scheduled with Care Team: No. SUNIL VYAS RN 10/11/2020 15:39 documented in this encounter Plan of Treatment Upcoming Encounters Date Type Department Care Team (Late st Contact Info) Description 06/29/2024 14:15 EDT Office Visit [facility] 3 [place] [address] Jean Munoz MD [address] [place] [address] documented as of this encounter [...] documented as of this encounter Care Teams Cash Register Repairer Relationship Specialty Start Date End Date Jean Munoz MD [address] [place] [phone] PCP - General 12/31/08 Manny Rizzo MD [address] [place] [address] 04/20/10 Afia Valle MD [address] [place] [address] [address] [place] [phone] Care Team Radiation Oncology 07/02/21 Jesi Leong [facility] [address] [place] [phone] Glass Maker 12/24/21 09/20/22 Jesi Leong [facility] [address] [place] [phone] Behavioral Health Glass MakerCorporate Attorney Care 10/19/22 01/23/24 documented as of this encounter
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
--- OUTSIDE RECORDS SUMMARY | 2024-06-10 07:13 | XMS_ITS | Encounter Summary ---
Author Organization [facility] Address [address] [place] [address] Care Team Providers Care Basting Machine Operator Name Role Phone Jean Munoz MD Primary Care Provider Manny Rizzo MD Unavailable Reason for Visit * Reason Comments Chronic Pain Encounter Details Date Type Department Care Team (Late st Contact Info) Description 01/30/2021 15:00 EDT Telemedicine [facility] [address] [place] [address] Jean Munoz MD [address] [place] [phone] Chronic pain syndrome (Primary Dx); Chronic use of opiate for therapeutic purpose; Chronic low back pain, unspecified back pain laterality, unspecified whether sciatica present; Pain medication agreement; Insomnia, unspecified type; Primary narcolepsy without cataplexy; Tobacco dependence in remission; Anxiety; Nausea; Rosacea; Chronic fatigue; Impaired glucose tolerance; Obesity (BMI 30-39.9); Fatty liver Social History Tobacco Use Types Packs/Day Years [...] narcolepsy Daily Max: 40 mg 56 Tab 02/03/2021 04/22/2021 methylphenidate HCl (RITALIN;METHYLIN) 20 mg tabletIndications:Prima ry narcolepsy without cataplexy Take 2 Tabs by mouth daily for 28 days. For narcolepsy Daily Max: 40 mg 56 Tab 03/03/2021 04/22/2021 methylphenidate HCl (RITALIN;METHYLIN) 20 mg tabletIndications:Prima ry narcolepsy without cataplexy Take 2 Tabs by mouth daily for 28 days. For narcolepsy Daily Max: 40 mg 56 Tab 03/31/2021 04/22/2021 methylphenidate HCl (RITALIN;METHYLIN) 10 mg tabletIndications:Prima ry narcolepsy without cataplexy Take 1 Tab by mouth daily for 28 days. For narcolepsy Daily Max: 10 mg 28 Tab 02/03/2021 04/22/2021 methylphenidate HCl (RITALIN;METHYLIN) 10 mg tabletIndications:Prima ry narcolepsy without cataplexy Take 1 Tab by mouth daily for 28 days. For narcolepsy Daily Max: 10 mg 28 Tab 03/03/2021 04/22/2021 methylphenidate HCl (RITALIN;METHYLIN) 10 mg tabletIndications:Prima ry narcolepsy without cataplexy Take 1 Tab by mouth daily for 28 days. For narcolepsy Daily Max: 10 mg 28 Tab 03/31/2021 04/22/2021 HYDROcodone-acetaminoph en (NORCO) 5-325 mg tabletIndications:Chron ic pain syndrome,Chronic use of opiate for therapeutic purpose,Chronic low back pain, unspecified back pain laterality, unspecified whether sciatica present,Pain medication agreement Take 1 Tab by mouth 4 times daily for 28 days. For chronic pain Daily Max: 4 Tabs 112 Tab 02/03/2021 04/22/2021 HYDROcodone-acetaminoph en (NORCO) 5-325 mg tabletIndications:Chron ic pain syndrome,Chronic use of opiate for therapeutic purpose,Chronic low back pain, unspecified back pain laterality, unspecified whether sciatica present,Pain medication agreement Take 1 Tab by mouth 4 times daily for 28 days. Daily Max: 4 Tabs 112 Tab 03/03/2021 04/22/2021 HYDROcodone-acetaminoph en (NORCO) 5-325 mg tabletIndications:Chron ic pain syndrome,Chronic use of opiate for therapeutic purpose,Chronic low back pain, unspecified back pain laterality, unspecified whether sciatica present,Pain medication agreement Take 1 Tab by mouth 4 times daily for 28 days. Daily Max: 4 Tabs 112 Tab 03/31/2021 04/22/2021 DULoxetine (CYMBALTA) 60 mg capsuleIndications:Anxi ety Take 2 Caps by mouth daily. For depression, anxiety 180 Each 3 01/30/2021 02/05/2022 doxycycline (VIBRA-TABS) 100 mg tabletIndications:Rosac ea TAKE 1 TABLET BY MOUTH EVERY DAY for rosacea 90 Tab 3 04/06/2021 02/05/2022 documented in this encounter Progress Notes * Kaitlyn Montero LPN - 01/30/2021 1500 EDT The [place] [facility] Monitoring System query has been completed. Zolpidem 5 mg: Filled: 01/24/21 Quantity: 28 tabs for 28 days Pregabalin 300 mg: Filled: 01/13/21 Quantity: 60 capsules for 30 days Hydrocodone-acetaminophen 5-325 mg: Filled: 01/04/21 Quantity: 112 tabs for 28 days Methylphenidate 10 mg: Filled: 01/04/21 Quantity: 28 tabs for 28 days Methylphenidate 20 mg: Filled: 01/04/21 Quantity: 56 tabs for 28 days KAITLYN MONTERO LPN * Jean Munoz MD - 01/30/2021 1500 EDT Family Medicine Video Visit Chronic pain syndrome Chronic use of opiate for therapeutic purpose Chronic low back pain, unspecified back pain laterality, unspecified whether sciatica present Pain medication agreement - HYDROcodone-acetaminophen (NORCO) 5-325 mg tablet - HYDROcodone-acetaminophen (NORCO) 5-325 mg tablet - HYDROcodone-acetaminophen (NORCO) 5-325 mg tablet Chronic pain stable. Prescriptions renewed today. Recheck 12 weeks. In person visit next visit Insomnia, unspecified type Uses zolpidem as needed for sleep Primary narcolepsy without cataplexy Stable, methylphenidate renewed today. Tobacco dependence in remission Encounter for screening for lung cancer Follow up with radiology re CT order Screen for colon cancer Declines colonoscopy for screening now so we will postpone this to the future. Nausea Improved Return in about 12 weeks (around 04/24/2021) for PE in person. Patient education was direct. Barriers were assessed and addressed as needed. Kalie Hutchins is a 59-year-old female with chronic pain on long-term opiate therapy scheduled for follow-up video visit. At last visit discussed nausea, some vomiting, chronic pain on long-term opiate also onstimulant therapy for narcolepsy and hypnotic for insomnia. Feels prescriptions on Saturdays. Declined colonoscopy. Lung cancer screening CT and mammogram ordered but not done. Did not a call to schedule. Is a little sore today. Had COVID vaccine x 1 dose (J+J) Data reviewed this visit: problem list/past medical [...] pillows. Alert, no distress, no visible jaundice. * Kaitlyn Montero LPN - 01/30/2021 1500 EDT The concept of ???Telemedicine?? has been [...] in patient???s medical or mental health care. documented in this encounter Plan of Treatment Upcoming Encounters Date Type Department Care Team (Late st Contact Info) Description 06/29/2024 14:15 EDT Office Visit [facility] [address] [place], [place] [phone] Jean Munoz MD [address] [place] [phone] documented as of this encounter Visit Diagnoses Diagnosis Chronic pain syndrome- Primary Chronic use of opiate for therapeutic purpose Chronic low back pain, unspecified back pain laterality, unspecified whether sciatica present Pain medication agreement Encounter for long-term (current) use of other medications Insomnia, unspecified type 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 Personal history of tobacco use, presenting hazards to health Anxiety Anxiety state, unspecified Nausea Nausea alone Rosacea Chronic fatigue Other malaise and fatigue Impaired glucose tolerance Impaired glucose tolerance test Obesity (BMI 30-39.9) Obesity, unspecified Fatty liver Other chronic nonalcoholic liver disease Screening for osteoporosis- Primary Special screening for osteoporosis Primary narcolepsy without cataplexy Chronic pain syndrome Chronic low back pain Lumbago Chronic use of opiate for therapeutic purpose Pain medication agreement Encounter for long-term (current) use of other medications Screen for colon cancer Special screening for malignant neoplasms, colon documented in this encounter Discontinued Medications Medication Sig Discontinue Reason Start Date End Da te DULoxetine (CYMBALTA) 60 mg capsuleIndications:Anxi ety Take 2 Caps by mouth daily. For depression, anxiety Reorder 03/12/2020 01/30/2021 HYDROcodone-acetaminoph en (NORCO) 5-325 mg tabletIndications:Chron ic pain syndrome,Chronic use of opiate for therapeutic purpose,Chronic low back pain, unspecified back pain laterality, unspecified whether sciatica present,Pain medication agreement Take 1 Tab by mouth 4 times daily for 28 days. Daily Max: 4 Tabs Reorder 01/06/2021 01/30/2021 HYDROcodone-acetaminoph en (NORCO) 5-325 mg tabletIndications:Chron ic pain syndrome,Chronic use of opiate for therapeutic purpose,Chronic low back pain, unspecified back pain laterality, unspecified whether sciatica present,Pain medication agreement Take 1 Tab by mouth 4 times daily for 28 days. Daily Max: 4 Tabs Reorder 12/09/2020 01/30/2021 HYDROcodone-acetaminoph en (NORCO) 5-325 mg tabletIndications:Chron ic pain syndrome,Chronic use of opiate for therapeutic purpose,Chronic low back pain, unspecified back pain laterality, unspecified whether sciatica present,Pain medication agreement Take 1 Tab by mouth 4 times daily for 28 days. For chronic pain Daily Max: 4 Tabs Reorder 11/11/2020 01/30/2021 methylphenidate HCl (RITALIN;METHYLIN) 20 mg tabletIndications:Prima ry narcolepsy without cataplexy Take 2 Tabs by mouth daily for 28 days. For narcolepsy Daily Max: 40 mg Reorder 01/06/2021 01/30/2021 methylphenidate HCl (RITALIN;METHYLIN) 20 mg tabletIndications:Prima ry narcolepsy without cataplexy Take 2 Tabs by mouth daily for 28 days. For narcolepsy Daily Max: 40 mg Reorder 12/09/2020 01/30/2021 methylphenidate HCl (RITALIN;METHYLIN) 20 mg tabletIndications:Prima ry narcolepsy without cataplexy Take 2 Tabs by mouth daily for 28 days. For narcolepsy Daily Max: 40 mg Reorder 11/11/2020 01/30/2021 methylphenidate HCl (RITALIN;METHYLIN) 10 mg tabletIndications:Prima ry narcolepsy without cataplexy Take 1 Tab by mouth daily for 28 days. For narcolepsy Daily Max: 10 mg Reorder 01/06/2021 01/30/2021 methylphenidate HCl (RITALIN;METHYLIN) 10 mg tabletIndications:Prima ry narcolepsy without cataplexy Take 1 Tab by mouth daily for 28 days. For narcolepsy Daily Max: 10 mg Reorder 12/09/2020 01/30/2021 methylphenidate HCl (RITALIN;METHYLIN) 10 mg tabletIndications:Prima ry narcolepsy without cataplexy Take 1 Tab by mouth daily for 28 days. For narcolepsy Daily Max: 10 mg Reorder 11/11/2020 01/30/2021 doxycycline (VIBRA-TABS) 100 mg tablet TAKE 1 TABLET BY MOUTH EVERY DAY for rosacea Reorder 01/05/2021 01/30/2021 documented as of this encounter Care Teams Basting Machine Operator Relationship Specialty Start Date End Date Jean Munoz MD [address] [place] [phone] PCP - General 12/31/08 Manny Rizzo MD [address] [place] [address] 04/20/10 documented as of this encounter
--- OUTSIDE RECORDS SUMMARY | 2024-06-10 07:13 | XMS_ITS | Encounter Summary ---
Author Organization [facility] Address [address] [place] [address] Care Team Providers Care Funeral Limousine Driver Name Role Phone Jean Munoz MD Primary Care Provider Manny Rizzo MD Unavailable Encounter Details Date Type Department Care Team (Latest Contact Info) Description 12/10/2020 Travel Social History Tobacco Use Types Packs/Day [...] Visit [facility] [address] [place] [address] Jean Munoz MD [address] [place] [phone] documented as of this encounter Visit Diagnoses Not on filedocumented in this encounter Care Teams Funeral Limousine Driver Relationship Specialty Start Date End Date Jean Munoz MD [address] [place] [phone] PCP - General 12/31/08 Manny Rizzo MD [address] [place] [phone] 04/20/10 documented as of this encounter
--- OUTSIDE RECORDS SUMMARY | 2024-06-10 07:13 | XMS_ITS | Encounter Summary ---
Author Organization [facility] Address [address] [place] [address] Care Team Providers Care Controller Coal Or Ore Name Role Phone Jean Munoz MD Primary Care Provider Manny Rizzo MD Unavailable Reason for Visit * Reason Comments Other Encounter Details Date Type Department Care Team (Late st Contact Info) Description 10/19/2020 [facility] [address] [place] [address] Jean Munoz MD [address] [place] [phone] Other Social History Tobacco Use Types [...] MOUTH EVERY DAY for rosacea 90 Tab 10/21/2020 01/05/2021 documented in this encounter Miscellaneous Notes * Telephone Encounter - Mak Pina RN - 10/21/2020 1426 EST Medication(s) Requested: Doxycycline 100mg [facility]? Unknown Last Refill Date: 10/16/19 Last Visit Date with Ordering Provider: 08/15/20 Next Non-Acute Visit Date Scheduled with Care Team: Yes 11/07/20 Doxycycline for rosacea Prescription(s) reviewed and approved. MAK PINA RN 10/21/2020 14:26 documented in this encounter Plan of Treatment Upcoming Encounters Date Type Department Care Team (Late st Contact Info) Description 06/29/2024 14:15 EDT Office Visit [facility] [address] [place] [address] Jean Munoz MD [address] [place] [phone] documented as of this encounter Visit Diagnoses Not on filedocumented in this encounter Discontinued Medications Medication Sig Discontinue Reason Start Date End Da te doxycycline (VIBRA-TABS) 100 mg tablet Take 1 Tab by mouth daily. For rosacea 10/16/2019 10/21/2020 documented as of this encounter Care Teams Controller Coal Or Ore Relationship Specialty Start Date End Date Jean Munoz MD [address] [place] [address] PCP - General 12/31/08 Manny Rizzo MD [address] [place] [phone] 04/20/10 documented as of this encounter
--- OUTSIDE RECORDS SUMMARY | 2024-06-10 07:13 | XMS_ITS | Encounter Summary ---
Author Organization [facility] Address [address] [place] [address] Care Team Providers Care Cutting Table Operator First Name Role Phone Jean Munoz MD Primary Care Provider Manny Rizzo MD Unavailable Reason for Visit * Reason Onset Date Comments Prior Auth, Medication 09/10/2020 Encounter Details Date Type Department Care Team (Late st Contact Info) Description 09/10/2020 Telephone [facility] [address] [place], [place] [phone] Jean Munoz MD [address] [place] [phone] Prior Auth, Medication Social History [...] Telephone Encounter - Kaitlyn Montero LPN - 09/10/2020 1614 EST Received message back from [place] medicaid stating that a current approval is on file until 11/28/2020 and that this medication must be filled as a 30 days supply. Called pharmacy and relayed this information. Pharmacist stated that medication did go through insurance for 30 days supply. KAITLYN MONTERO LPN * Telephone Encounter - Kaitlyn Montero LPN - 09/10/2020 1345 EST PA sent to insurance ([place] Medicaid) for Fexofenadine. Waiting for response. KAITLYN MONTERO LPN documented in this encounter Plan of Treatment Upcoming Encounters Date Type Department Care Team (Late st Contact Info) Description 06/29/2024 14:15 EDT Office Visit [facility] [address] [place] [address] Jean Munoz MD [address] [place] [phone] documented as of this encounter Visit Diagnoses Not on filedocumented in this encounter Care Teams Cutting Table Operator First Relationship Specialty Start Date End Date Jean Munoz MD [address] [place] [phone] PCP - General 12/31/08 Manny Rizzo MD [address] [place] [phone] 04/20/10 documented as of this encounter
--- OUTSIDE RECORDS SUMMARY | 2024-06-10 07:13 | XMS_ITS | Encounter Summary ---
Author Organization [facility] Address [address] [place] [address] Care Team Providers Care Toe Puncher Name Role Phone Jean Munoz MD Primary Care Provider Manny Rizzo MD Unavailable Reason for Visit * Reason Onset Date Comments Appointment Related 01/31/2021 Encounter Details Date Type Department Care Team (Late st Contact Info) Description 01/31/2021 Telephone [facility] [address] [place], [place] [phone] Jean Munoz MD [address] [place] [phone] Appointment Related Social History Tobacco [...] * Telephone Encounter - Zuri Delaney - 01/31/2021 1237 EDT -Return in about 12 weeks (around 04/24/2021) for PE in person. documented in this encounter Plan of Treatment Upcoming Encounters Date Type Department Care Team (Late st Contact Info) Description 06/29/2024 14:15 EDT Office Visit [facility] [address] [place], [place] [phone] Jean Munoz MD [address] [place] [phone] documented as of this encounter Visit Diagnoses Not on filedocumented in this encounter Care Teams Toe Puncher Relationship Specialty Start Date End Date Jean Munoz MD [address] [place] [phone] PCP - General 12/31/08 Manny Rizzo MD [address] [place] [address] 04/20/10 documented as of this encounter
--- OUTSIDE RECORDS SUMMARY | 2024-06-10 07:13 | XMS_ITS | Encounter Summary ---
Author Organization [facility] Address [address] [place] [address] Care Team Providers Care Mandarin Teacher Name Role Phone Jean Munoz MD Primary Care Provider Manny Rizzo MD Unavailable Encounter Details Date Type Department Care Team (Latest Contact Info) Description 06/05/2020 Travel Social History Tobacco Use Types Packs/Day [...] [facility] [address] [place] [address] Jean Munoz MD [address] [place] [phone] documented as of this encounter Visit Diagnoses Not on filedocumented in this encounter Care Teams Mandarin Teacher Relationship Specialty Start Date End Date Jean Munoz MD [address] [place] [phone] PCP - General 12/31/08 Manny Rizzo MD [address] [place] [address] 04/20/10 documented as of this encounter
--- OUTSIDE RECORDS SUMMARY | 2024-06-10 07:13 | XMS_ITS | Encounter Summary ---
Author Organization [facility] Address [address] [place] [address] Care Team Providers Care Fitness Attendant Name Role Phone Jean Munoz MD Primary Care Provider Manny Rizzo MD Unavailable Afia Valle MD Unavailable Jesi Leong SENIOR GAME DESIGNER Unavailable SaloJesi shanks E SENIOR GAME DESIGNER Unavailable Reason for Visit * Reason Comments Other Encounter Details Date Type Department Care Team (Late st Contact Info) Description 06/19/2020 Refill [facility] Family Medicine [facility] [address] [place], [place] [phone] Jean Munoz MD [address] [place] [phone] Other Social History Tobacco Use [...] mg capsuleIndications:Chroni c low back pain TAKE 1 CAPSULE BY MOUTH 2 TIMES DAILY. DAILY MAX: 600 MG 60 Cap 5 06/21/2020 01/05/2021 documented in this encounter Miscellaneous Notes * Telephone Encounter - Cat Armijo - 06/25/2020 0917 EDT LM- Chart reviewed, had telephone visit 05/23/2020, plan at that time was to follow- up in 12 weeks around 08/15/2020. No appointment scheduled. I sent prescription to pharmacy. Please call her to let her know and to schedule follow-up by 08/15/2020. 30 minutes video visit if she is able, telephone visit is okay. Due to significant pulmonary disease would try to avoid in person visit for now. Also please encourage her to get flu shot if she has not already done so. Thanks. * Telephone Encounter - Jean Munoz MD - 06/21/2020 0916 EDT Chart reviewed, had telephone visit 05/23/2020, plan at that time was to follow- up in 12 weeks around 08/15/2020. No appointment scheduled. I sent prescription to pharmacy. Please call her to let her know and to schedule follow-up by 08/15/2020. 30 minutes video visit if she is able, telephone visit is okay. Due to significant pulmonary disease would try to avoid in person visit for now. Also pleaseencourage her to get flu shot if she has not already done so. Thanks. * Telephone Encounter - Abdifatah Blake - 06/19/2020 1118 EDT Medication(s) Requested: pregabalin 300mg Preferred Pharmacy: [facility] Is patient out of medication? Unknown Last Refill Date: 01/11/20 #30 with 5 RF Last Visit Date with Ordering Provider: 05/23/20 Next Non-Acute Visit Date Scheduled with Care Team: No. ABDIFATAH BLAKE RN 06/19/2020 11:18 documented in this encounter Plan of Treatment Upcoming Encounters Date Type Department Care Team (Late st Contact Info) Description 06/29/2024 14:15 EDT Office Visit [facility] [address] [place], [place] [phone] Jean Munoz MD [address] [place] [phone] documented as of this encounter Visit Diagnoses [...] 300 mg capsuleIndications:Chroni c low back pain Take 1 Cap by mouth 2 times daily. Daily Max: 600 mg 01/11/2020 06/21/2020 documented as of this encounter Additional Health Concerns Infection Onset Date Last Indicated Resolved Time R/O COVID-19 05/15/2022 05/15/2022 05/20/2022 22:1 6 EDT R/O COVID-19 11/14/2022 11/14/2022 11/14/2022 19:1 6 EST documented as of this encounter Care Teams Fitness Attendant Relationship Specialty Start Date End Date Jean Munoz MD [address] [place] [phone] PCP - General 12/31/08 Manny Rizzo MD [address] [place] [phone] 04/20/10 Afia Valle MD [address] [facility], [address] [place] [phone] Care Team Radiation Oncology 07/02/21 Jesi Leong [facility] [address] [place] [phone] Fur Comber 12/24/21 09/20/22 Jesi Leong [facility] [address] [place] [phone] Behavioral Health Fur ComberIndustrial Sales Engineer Care 10/19/22 01/23/24 documented as of this encounter
--- OUTSIDE RECORDS SUMMARY | 2024-06-10 07:13 | XMS_ITS | Encounter Summary ---
Author Organization [facility] Address [address] [place] [address] Care Team Providers Care Manufacturing Area Manager Name Role Phone Jean Munoz MD Primary Care Provider Manny Rizzo MD Unavailable Afia Valle MD Unavailable Jesi Leong TECHNOLOGIES DIVISION CHAIR Unavailable SaloJesi shanks TECHNOLOGIES DIVISION CHAIR Unavailable Reason for Visit * Reason Comments Other Encounter Details Date Type Department Care Team (Late st Contact Info) Description 02/16/2021 Refill [facility] Family Medicine [facility] [address] [place], [place] [phone] Jean Munoz MD [address] [place] [phone] Other Social History Tobacco Use [...] (AMBIEN) 5 mg tabletIndications:Insomni a, unspecified type TAKE 1 TABLET BY MOUTH AT BEDTIME NEEDED *LIMIT 1 PER DAY 28 Tab 1 02/20/2021 04/17/2021 documented in this encounter Miscellaneous Notes * Telephone Encounter - Jean Munoz MD - 02/20/2021 1051 EDT Chart reviewed, had video visit on January 30, plan was for follow-up in 12 weeks approximately 04/24/2021 but this has not been scheduled. Please follow-up with Liset to schedule next appointment. I sent prescription for Ambien to her pharmacy. * Telephone Encounter - Lizz Negro RN - 02/18/2021 0956 EDT Medication(s) Requested: ambien 5 mg Preferred Pharmacy: [facility] Is patient out of medication? Unknown Last Refill Date: 06/22/20 Last Visit Date with Ordering Provider: 01/30/21 Next Non-Acute Visit Date Scheduled with Care Team: No. LIZZ NEGRO RN 02/18/2021 9:57 documented in this encounter Plan of Treatment Upcoming Encounters Date Type Department Care Team (Late st Contact Info) Description 06/29/2024 14:15 EDT Office Visit [facility] [address] [place] [address] Jean Munoz MD [address] [place] [phone] documented as of this encounter [...] 1 TABLET BY MOUTH NIGHTLY AT BEDTIME as needed for sleep *daily max 1 tab 06/22/2020 02/18/2021 documented as of this encounter Additional Health Concerns Infection Onset Date Last Indicated Resolved Time R/O COVID-19 05/15/2022 05/15/2022 05/20/2022 22:1 6 EDT R/O COVID-19 11/14/2022 11/14/2022 11/14/2022 19:1 6 EST documented as of this encounter Care Teams Manufacturing Area Manager Relationship Specialty Start Date End Date Jean Munoz MD [address] [place] [phone] PCP - General 12/31/08 Manny Rizzo MD [address] [place] [address] 04/20/10 Afia Valle MD [address] [place] [address], [facility], [address] [place] [phone] MD Care Team Radiation Oncology 07/02/21 Jesi Leong TECHNOLOGIES DIVISION CHAIR [address] [place] [phone] Paranormal Investigator 12/24/21 09/20/22 Jesi Leong TECHNOLOGIES DIVISION CHAIR [address] [place] [address] Behavioral Health Paranormal InvestigatorCloth Cutting Machine Operator Care 10/19/22 01/23/24 documented as of this encounter
--- OUTSIDE RECORDS SUMMARY | 2024-06-10 07:13 | XMS_ITS | Encounter Summary ---
Author Organization [facility] Address [address] [place] [address] Care Team Providers Care Enrichment Director Name Role Phone Jean Munoz MD Primary Care Provider Manny Rizzo MD Unavailable Reason for Visit * Reason Onset Date Comments Medications Refill 11/11/2020 Encounter Details Date Type Department Care Team (Late st Contact Info) Description 11/11/2020 Refill [facility] Medicine [facility] [address] [place], [place] [phone] Jean Munoz MD [address] [place] [address] Medications Refill Social History Tobacco [...] Dispensed Refills Start Date End Da te fluticasone propion-salmeteroL (ADVAIR HFA) 230-21 mcg/actuation inhalerIndications:Panlo bular emphysema (HCC-CMS) INHALE TWO PUFFS BY MOUTH TWICE DAILY as directed 3 Inhaler 3 11/12/2020 02/05/2022 documented in this encounter Miscellaneous Notes * Telephone Encounter - Fani Dickens RN - 11/12/2020 1341 EST Seen recently, refilled for 1 year. FANI SPANGLER RN 11/12/2020 13:41 * Telephone Encounter - Carmita Franklin - 11/11/2020 1601 EST Medication(s) Requested: fluticasone propion-salmeterol (ADVAIR HFA) 230-21 mcg/actuation inhaler Preferred Pharmacy: [facility] Is patient out of medication? Unknown Last Refill Date: 08/30/19 Last Visit Date with Ordering Provider: 11/07/20 Next Non-Acute Visit Date Scheduled with Care Team: No. Carmita Franklin 11/11/2020 16:01 documented in this encounter Plan of Treatment Upcoming Encounters Date Type Department Care Team (Late st Contact Info) Description 06/29/2024 14:15 EDT Office Visit [facility] [address] [place] [address] Jean Munoz MD [address] [place] [address] documented as of this encounter [...] Discontinue Reason Start Date End Da te fluticasone propion-salmeterol (ADVAIR HFA) 230-21 mcg/actuation inhalerIndications:Panl obular emphysema (HCC-CMS) INHALE TWO PUFFS BY MOUTH TWICE DAILY as directed Reorder 08/30/2019 11/11/2020 documented as of this encounter Care Teams Enrichment Director Relationship Specialty Start Date End Date Jean Munoz MD [address] [place] [address] PCP - General 12/31/08 Manny Rizzo MD [address] [place] [address] 04/20/10 documented as of this encounter
--- OUTSIDE RECORDS SUMMARY | 2024-06-10 07:13 | XMS_ITS | Encounter Summary ---
Author Organization [facility] Address [address] [place] [address] Care Team Providers Care Legislative Advocate Name Role Phone Jean Munoz MD Primary Care Provider Manny Rizzo MD Unavailable Reason for Referral * Radiology Services (Routine/Next Available) - Closed Specialty Diagnoses / Procedures Referred By Alex weldon Referred To Contact Diagnoses Chronic pain of left knee Procedures XR KNEE RIGHT 3 VIEWS Chavo Multani MD MSc [address] [address] Referral ID Status Reason Start Date Expiration Date Visits Re quested Visits Authorized [id number] Closed 06/04/2020 1 1 Reason for Visit * Radiology Services (Routine/Next Available) - Closed Specialty Diagnoses / Procedures Referred By Alex weldon Referred To Contact Diagnoses Chronic pain of left knee Procedures XR KNEE RIGHT 3 VIEWS Chavo Multani MD MSc [address] [address] Referral ID Status Reason Start Date Expiration Date Visits Re quested Visits Authorized [id number] Closed 06/04/2020 1 1 Encounter Details Date Type Department Care Team (Latest Contact Info) Description 06/05/2020 14:45 EDT - 06/05/2020 23:59 EDT Hospital Encounter [facility] [address] [place], [place] [phone] Chronic pain of left knee Discharge Disposition: Home or Self Care Social [...] times daily. 100 Each 1 07/05/2018 07/08/2021 Ciclesonide 50 mcg spray,non-aerosolIndica tions:Seasonal allergic rhinitis, unspecified trigger 1 spray each nostril daily 37.5 g 5 03/03/2018 08/04/2023 cycloSPORINE (RESTASIS) 0.05 % ophthalmic emulsion Place 1 drop into both eyes 2 times daily. 1 vial 11/11/2018 10/06/2023 doxycycline (VIBRA-TABS) 100 mg tablet Take 1 Tab by mouth daily. For rosacea 90 Tab 3 10/16/2019 10/21/2020 DULoxetine (CYMBALTA) 60 mg capsuleIndications:Anxi ety Take 2 Caps by mouth daily. For depression, anxiety 180 Each 3 03/12/2020 01/30/2021 fexofenadine (JUDITH) 180 mg tabletIndications:Aller gic rhinitis, unspecified seasonality, unspecified trigger Take 1 Tab by mouth daily. For allergies 90 Tab 3 10/05/2019 09/10/2020 fluticasone propion-salmeterol (ADVAIR HFA) 230-21 mcg/actuation inhalerIndications:Panl obular emphysema (HCC-CMS) INHALE TWO PUFFS BY MOUTH TWICE DAILY as directed 3 Inhaler 3 08/30/2019 11/11/2020 HYDROcodone-acetaminoph en (NORCO) 5-325 mg tabletIndications:Chron ic pain syndrome,Chronic use of opiate for therapeutic purpose,Chronic low back pain, unspecified back pain laterality, unspecified whether sciatica present,Pain medication agreement Take 1 Tab by mouth 4 times daily for 28 days. For chronic pain Daily Max: 4 Tabs 112 Tab 05/25/2020 10/01/2020 HYDROcodone-acetaminoph en (NORCO) 5-325 mg tabletIndications:Chron ic pain syndrome,Chronic use of opiate for therapeutic purpose,Chronic low back pain, unspecified back pain laterality, unspecified whether sciatica present,Pain medication agreement Take 1 Tab by mouth 4 times daily for 28 days. Daily Max: 4 Tabs 112 Tab 06/22/2020 10/01/2020 HYDROcodone-acetaminoph en (NORCO) 5-325 mg tabletIndications:Chron ic pain syndrome,Chronic use of opiate for therapeutic purpose,Chronic low back pain, unspecified back pain laterality, unspecified whether sciatica present,Pain medication agreement Take 1 Tab by mouth 4 times daily for 28 days. Daily Max: 4 Tabs 112 Tab 07/20/2020 10/01/2020 hydroxypropyl methylcellulose (ISOPTO TEARS) 0.5 % ophthalmic solution Place 1 Drop into both eyes 5 times daily. 12/10/2010 10/06/2023 ipratropium-albuterol (DUONEB) 0.5 mg-3 mg(2.5 mg base)/3 mL nebulizer solutionIndications:Jarquin lobular emphysema (HCC-CMS) Take 3 mL by nebulization every 4 hours as needed for Wheezing. 3 mL 3 08/30/2019 11/23/2022 lancetsIndications:Impa ired glucose tolerance Brand:RADSONE, tests 2 times daily 100 Each 2 07/05/2018 07/08/2021 levalbuterol (XOPENEX HFA) 45 mcg/actuation inhalerIndications:Panl obular emphysema (HCC-CMS) Inhale 2 Puffs as directed every 4 hours as needed for Wheezing. For shortness of breath 3 Inhaler 5 08/30/2019 09/09/2020 methocarbamoL (ROBAXIN) 500 mg tabletIndications:Chron ic pain syndrome take 2 tablets by mouth at bedtime 180 Tab 1 12/06/2019 02/05/2022 methylphenidate HCl (RITALIN;METHYLIN) 20 mg tablet Take 2 Tabs by mouth daily for 28 days. For narcolepsy Daily Max: 40 mg 56 Tab 07/20/2020 10/01/2020 methylphenidate HCl (RITALIN;METHYLIN) 10 mg tablet Take 1 Tab by mouth daily for 28 days. For narcolepsy Daily Max: 10 mg 28 Tab 07/20/2020 10/01/2020 montelukast (SINGULAIR) 10 mg tabletIndications:Aller gic rhinitis, unspecified seasonality, unspecified trigger Take 1 Tab by mouth daily. For allergies 90 Tab 3 10/28/2019 11/06/2020 omeprazole (PRILOSEC) 40 mg capsuleIndications:Benja roesophageal reflux disease, esophagitis presence not specified Take 1 Cap by mouth daily. 90 Cap 3 08/30/2019 10/06/2023 ondansetron (ZOFRAN) 4 mg tabletIndications:Nause a TAKE ONE TABLET BY MOUTH DAILY NEEDED FOR NAUSEA 30 Tab 5 07/14/2019 10/23/2020 pregabalin (LYRICA) 300 mg capsuleIndications:Pediatric Oncology Nurse majo low back pain Take 1 Cap by mouth 2 times daily. Daily Max: 600 mg 60 Each 5 01/11/2020 06/21/2020 promethazine (PHENERGAN) 25 mg tabletIndications:Nause a TAKE ONE TABLET BY MOUTH EVERY SIX HOURS NEEDED FOR NAUSEA 25 Tab 5 07/14/2019 07/03/2020 roflumilast (DALIRESP) 500 mcg tabletIndications:Chron ic obstructive pulmonary disease, unspecified COPD type (HCC-CMS) Take 1 Tab by mouth daily. 90 Tab 2 12/14/2019 09/02/2020 rOPINIRole (REQUIP) 2 mg tabletIndications:Restl ess legs syndrome TAKE 1 TABLET BY MOUTH NIGHTLY AT BEDTIME 90 Tab 3 07/24/2019 07/07/2021 SPIRIVA RESPIMAT 1.25 mcg/actuation inhalerIndications:Pediatric Oncology Nurse majo obstructive pulmonary disease, unspecified COPD type (HCC-CMS) INHALE TWO PUFFS BY MOUTH DAILY DIRECTED 12 g 3 02/01/2020 01/27/2023 sumatriptan (IMITREX) 100 mg tabletIndications:Migra ine without status migrainosus, not intractable, unspecified migraine type take 1 tablet by mouth once as needed for up to 1 dose for migraine 9 Tab 1 05/22/2020 01/05/2021 tamsulosin (FLOMAX) 0.4 mg capsuleIndications:Hesi tancy Take 1 Cap by mouth daily. 90 Cap 3 08/30/2019 01/27/2023 zolpidem (AMBIEN) 5 mg tabletIndications:Insom yesi, unspecified type TAKE 1 TABLET BY MOUTH NIGHTLY AT BEDTIME as needed for sleep *daily max 1 tab 28 Tab 1 06/22/2020 02/18/2021 documented as of this encounter Discharge Disposition Disposition Code Departure Means Destination Home or Self Care documented in this encounter Plan of Treatment Upcoming Encounters Date Type Department Care Team (Late st Contact Info) Description 06/29/2024 14:15 EDT Office Visit [facility] [address] [place] [address] Jean Munoz MD [address] [place] [address] documented as of this encounter Procedures Procedure Name Priority Date/Time Associated Diagnosis Comments XR KNEE RIGHT 3 VIEWS Routine 06/05/2020 15:09 EDT Chronic pain of left knee documented in this encounter Results * XR KNEE RIGHT 3 VIEWS (06/05/2020 15:09 EDT) Anatomical Region Laterality Modality Lower Extremities Right Computed Radio graphy 06/06/2020 10:3 3 EDT Impressions 06/06/2020 10:33 EDT FINDINGS / IMPRESSION: Left knee: 4 views of the left knee show no acute abnormality. There are at least mild degenerative changes in the medial compartment. Lateral and patellofemoral joint spaces are better preserved. There is no sizable joint effusion. There is enthesopathic spurring on the anterosuperior margin of the patella. Right knee: 3 views of the right knee show mild degenerative changes in the medial compartment. There is a dystrophic or vascular calcification in the subcutaneous soft tissues along the lateral aspect of the distal thigh. The lack of a lateral view precludes assessment for joint effusion. Narrative 06/06/2020 10:33 EDT EXAM/TECHNIQUE: XR KNEE LEFT 4 OR MORE VIEWS, XR KNEE RIGHT 3 VIEWS ??06/05/2020 2:30 PM HISTORY: ?? Left knee pain COMPARISON: Left knee radiographs 01/09/2012. Procedure Note Stewart Sesay, DO - 06/06/2020 EXAM/TECHNIQUE: XR KNEE LEFT 4 OR MORE VIEWS, XR KNEE RIGHT 3 VIEWS 06/05/2020 2:30 PM HISTORY: Left knee pain COMPARISON: Left knee radiographs 01/09/2012. IMPRESSION FINDINGS / IMPRESSION: Left knee: 4 views of the left knee show no acute abnormality. There areat least mild degenerative changes in the medial compartment. Lateral andpatellofemoral joint spaces are better preserved. There is no sizablejoint effusion. There is enthesopathic spurring on the anterosuperiormargin of the patella. Right knee: 3 views of the right knee show mild degenerative changes inthe medial compartment. There is a dystrophic or vascular calcification inthe subcutaneous soft tissues along the lateral aspect of the distalthigh. The lack of a lateral view precludes assessment for jointeffusion. Chavo Multani MD MSc [facility] NOSTIC IMAGING ORDERABLES documented in this encounter Visit Diagnoses Diagnosis Chronic pain of left knee Pain in joint, lower leg Screening for osteoporosis- Primary Special screening for osteoporosis Primary narcolepsy without cataplexy Chronic pain syndrome Chronic low back pain Lumbago Chronic use of opiate for therapeutic purpose Pain medication agreement Encounter for long-term (current) use of other medications Screen for colon cancer Special screening for malignant neoplasms, colon documented in this encounter Care Teams Legislative Advocate Relationship Specialty Start Date End Date Jean Munoz MD [address] [place] [address] PCP - General 12/31/08 Manny Rizzo MD [address] [place] [phone] 04/20/10 documented as of this encounter
--- OUTSIDE RECORDS SUMMARY | 2024-06-10 07:13 | XMS_ITS | Encounter Summary ---
Author Organization [facility] Address [address] [place] [address] Care Team Providers Care Medical Voucher Clerk Name Role Phone Jean Munoz MD Primary Care Provider Manny Rizzo MD Unavailable Reason for Visit * Reason Comments Other Encounter Details Date Type Department Care Team (Late st Contact Info) Description 04/08/2021 [facility] [address] [place] [address] Jean Munoz MD [address] [place] [phone] Other Social History Tobacco Use Types [...] Telephone Encounter - Fani Dickens RN - 04/09/2021 0858 EDT Refilled on 04/08/21. FANI SPANGLER RN 04/09/2021 8:59 documented in this encounter Plan of Treatment Upcoming Encounters Date Type Department Care Team (Late st Contact Info) Description 06/29/2024 14:15 EDT Office Visit [address] [address] Jean Munoz MD [address] [place] [phone] documented as of this encounter Visit [...] documented in this encounter Care Teams Medical Voucher Clerk Relationship Specialty Start Date End Date Jean Munoz MD [address] [place] [phone] PCP - General 12/31/08 Manny Rizzo MD [address] [place] [phone] 04/20/10 documented as of this encounter
--- OUTSIDE RECORDS SUMMARY | 2024-06-10 07:13 | XMS_ITS | Encounter Summary ---
Author Organization [facility] Address [address] [place] [address] Care Team Providers Care Supervisor Slate Splitting Name Role Phone Jean Munoz MD Primary Care Provider Manny Rizzo MD Unavailable Reason for Visit * Reason Onset Date Comments Prior Auth, Medication 12/05/2020 Encounter Details Date Type Department Care Team (Late st Contact Info) Description 12/05/2020 Telephone [facility] [address] [place] [address] Jean Munoz MD [address] [place] [address] Prior Auth, Medication Social History [...] Telephone Encounter - Kaitlyn Montero LPN - 12/06/2020 0938 EDT Medication: Daliresp Insurance Co: [place] medicaid Approval # (if applicable): [id number] Approval dates: 12/05/2020-12/05/2021 KAITLYN MONTERO LPN * Telephone Encounter - Kaitlyn Montero LPN - 12/05/2020 1638 EDT [place] sent to insurance ([place] Medicaid) for Daliresp. Waiting for response. KAITLYN MONTERO LPN documented in this encounter Plan of Treatment Upcoming Encounters Date Type Department Care Team (Late st Contact Info) Description 06/29/2024 14:15 EDT Office Visit [facility] [address] [place] [address] Jean Munoz MD [address] [place] [address] documented as of this encounter Visit Diagnoses Not on filedocumented in this encounter Care Teams Supervisor Slate Splitting Relationship Specialty Start Date End Date Jean Munoz MD [address] [place] [address] PCP - General 12/31/08 Manny Rizzo MD [address] [place] [phone] 04/20/10 documented as of this encounter
--- OUTSIDE RECORDS SUMMARY | 2024-06-10 07:13 | XMS_ITS | Encounter Summary ---
Author Organization [facility] Address [address] [place] [address] Care Team Providers Care Electric Utility Lineworker Name Role Phone Jean Munoz MD Primary Care Provider Manny Rizzo MD Unavailable Afia Valle MD Unavailable Reason for Visit * Reason Onset Date Comments Appointment Related 07/09/2020 Encounter Details Date Type Department Care Team (Late st Contact Info) Description 07/09/2020 Telephone [facility] [address] [place] [address] [place], [place] [phone] Bassam Euceda MD [address] [facility] [place] [phone] Appointment Related Social History Tobacco Use Types [...] encounter Miscellaneous Notes * Telephone Encounter - Jhonathan Blackman - 07/09/2020 5725 EDT LMOM to schedule September 2020 FUR w/. documented in this encounter Plan of Treatment Upcoming Encounters Date Type Department Care Team (Late st Contact Info) Description 06/29/2024 14:15 EDT Office Visit [facility] [address] [place] [address] Jean Munoz MD [address] [place] [address] documented as of this encounter Visit Diagnoses Not on filedocumented in this encounter Care Teams Electric Utility Lineworker Relationship Specialty Start Date End Date Jean Munoz MD [address] [place] [address] PCP - General 12/31/08 Manny Rizzo MD [facility] [place] [address] 04/20/10 Afia Valle MD [address] [place] [address] [address] [place] [phone] Care Team Radiation Oncology 07/02/21 documented as of this encounter
--- OUTSIDE RECORDS SUMMARY | 2024-06-10 07:13 | XMS_ITS | Encounter Summary ---
Author Organization [facility] Address [address] [place] [address] Care Team Providers Care Manager Wind Name Role Phone Jean Munoz MD Primary Care Provider Manny Rizzo MD Unavailable Reason for Visit * Reason Comments Other Encounter Details Date Type Department Care Team (Late st Contact Info) Description 04/05/2021 [facility] [address] [place] [address] Jean Munoz MD [address] [place] [phone] Other Social History Tobacco Use Types [...] Max: 600 mg 40 capsule 04/08/2021 05/08/2021 documented in this encounter Miscellaneous Notes * Telephone Encounter - Jean Munoz MD - 04/08/2021 0819 EDT Rx done for 20 days until next visit, will address further refills then. * Telephone Encounter - Lizz Negro RN - 04/08/2021 0749 EDT Medication(s) Requested: lyrica 300 mg Preferred Pharmacy: [facility] Is patient out of medication? unknown Last Refill Date: 01/08/21 Last Visit Date with Ordering Provider: 01/30/21 Next Non-Acute Visit Date Scheduled with Care Team: 04/24/21 LIZZ NEGRO RN 04/08/2021 7:49 documented in this encounter Plan of Treatment Upcoming Encounters Date Type Department Care Team (Late st Contact Info) Description 06/29/2024 14:15 EDT Office Visit [address] [address] Jean Munoz MD [address] [place] [address] documented as of this encounter [...] End Da te pregabalin (LYRICA) 300 mg capsuleIndications:Ship Manager majo low back pain TAKE ONE CAPSULE BY MOUTH TWICE DAILY. daily max: 2 capsules 01/08/2021 04/08/2021 documented as of this encounter Care Teams Manager Wind Relationship Specialty Start Date End Date Jean Munoz MD [address] [place] [address] PCP - General 12/31/08 Manny Rizzo MD [address] [place] [phone] 04/20/10 documented as of this encounter
--- OUTSIDE RECORDS SUMMARY | 2024-06-10 07:13 | XMS_ITS | Encounter Summary ---
Author Organization [facility] Address [address] [place] [address] Care Team Providers Care Furniture Finisher Apprentice Name Role Phone Jean Munoz MD Primary Care Provider Manny Rizzo MD Unavailable Reason for Visit * Reason Comments Other Encounter Details Date Type Department Care Team (Late st Contact Info) Description 09/01/2020 [facility] [address] [place] [address] Jean Munoz MD [address] [place] [phone] Other Social History Tobacco Use Types [...] Dispensed Refills Start Date End Da te DALIRESP 500 mcg tabletIndications:Chronic obstructive pulmonary disease, unspecified COPD type ([facility]-CMS) TAKE 1 TABLET BY MOUTH EVERY DAY 90 Tab 09/02/2020 10/31/2020 documented in this encounter Miscellaneous Notes * Telephone Encounter - Sunil Vyas RN - 09/02/2020 1608 EST Medication(s) Requested: Daliresp 500 mcg [facility] Is patient out of medication? Unknown Last Refill Date: 12/14/19 for 90 with 2 refills Last Visit Date with Ordering Provider: 08/15/20 Next Non-Acute Visit Date Scheduled with Care Team: No. SUNIL VYAS RN 09/02/2020 16:08 documented in this encounter Plan of Treatment Upcoming Encounters Date Type Department Care Team (Late st Contact Info) Description 06/29/2024 14:15 EDT Office Visit [facility] [address] [place] [address] Jean Munoz MD [address] [place] [address] documented as of this encounter Visit Diagnoses Diagnosis Chronic obstructive pulmonary disease, unspecified COPD type (HCC-CMS)- Primary Screening for osteoporosis- Primary Special [...] End Da te roflumilast (DALIRESP) 500 mcg tabletIndications:Chronic obstructive pulmonary disease, unspecified COPD type ([facility]-CMS) Take 1 Tab by mouth daily. 12/14/2019 09/02/2020 documented as of this encounter Care Teams Furniture Finisher Apprentice Relationship Specialty Start Date End Date Jean Munoz MD [address] [place] [address] PCP - General 12/31/08 Manny Rizzo MD [address] [place] [phone] 04/20/10 documented as of this encounter
--- OUTSIDE RECORDS SUMMARY | 2024-06-10 07:13 | XMS_ITS | Encounter Summary ---
Author Organization [facility] Address [address] [place] [address] Care Team Providers Care Retail Client Solutions Consultant Name Role Phone Jean Munoz MD Primary Care Provider Manny Rizzo MD Unavailable Reason for Visit * Reason Onset Date Comments Medications Refill 10/23/2020 Encounter Details Date Type Department Care Team (Late st Contact Info) Description 10/23/2020 Refill [facility] Medicine [facility] [address] [place] [address] Jean Munoz MD [address] [place] [address] Medications Refill Social History Tobacco [...] FOR NAUSEA 30 Tab 3 10/25/2020 06/22/2021 ondansetron (ZOFRAN) 4 mg tabletIndications:Nausea TAKE ONE TABLET BY MOUTH DAILY NEEDED FOR NAUSEA 30 Tab 3 10/25/2020 10/09/2021 documented in this encounter Miscellaneous Notes * Telephone Encounter - Lizz Gutierrez RN - 10/25/2020 1135 EST Liset reports she takes the promethazine and if it doesn't work she takes zofran after. She uses her antiemetic 2-3 times a week. When asked how often the promethazine does not work she answered occasionally. Will route update to pcp. LIZZ GUTIERREZ RN * Telephone Encounter - Cat Armijo - 10/23/2020 1412 EST Medication(s) Requested: odansetron and promethazine-of note see 10/11 encounter regarding these medications as well. Preferred Pharmacy: [facility] [address] Is patient out of medication? Unknown Last Refill Date: 07/14/19 Last Visit Date with Ordering Provider: 08/15/20 Next Non-Acute Visit Date Scheduled with Care Team: Yes. 11/07/20 Cat Armijo 10/23/2020 14:13 documented in this encounter Plan of Treatment Upcoming Encounters Date Type Department Care Team (Late st Contact Info) Description 06/29/2024 14:15 EDT Office Visit [facility] [address] [place] [address] Jean Munoz MD [address] [place] [address] documented as of this encounter [...] Discontinue Reason Start Date End Da te ondansetron (ZOFRAN) 4 mg tabletIndications:Nausea TAKE ONE TABLET BY MOUTH DAILY NEEDED FOR NAUSEA Reorder 07/14/2019 10/23/2020 promethazine (PHENERGAN) 25 mg tabletIndications:Nausea TAKE ONE TABLET BY MOUTH EVERY SIX HOURS NEEDED FOR NAUSEA Reorder 07/03/2020 10/23/2020 documented as of this encounter Care Teams Retail Client Solutions Consultant Relationship Specialty Start Date End Date Jean Munoz MD [address] [place] [address] PCP - General 12/31/08 Manny Rizzo MD [address] [place] [phone] 04/20/10 documented as of this encounter
--- OUTSIDE RECORDS SUMMARY | 2024-06-10 07:13 | XMS_ITS | Encounter Summary ---
Author Organization [facility] Address [address] [place] [address] Care Team Providers Care Rn Appeals Name Role Phone Jean Munoz MD Primary Care Provider Manny Rizzo MD Unavailable Reason for Visit * Reason Comments Other Encounter Details Date Type Department Care Team (Late st Contact Info) Description 01/08/2021 [facility] [address] [place] [address] Jean Munoz MD [address] [place] [phone] Other Social History Tobacco Use Types [...] FOR MIGRAINE. 9 Tab 3 01/08/2021 06/05/2021 pregabalin (LYRICA) 300 mg capsuleIndications:Chroni c low back pain TAKE ONE CAPSULE BY MOUTH TWICE DAILY. daily max: 2 capsules 60 Cap 2 01/08/2021 04/08/2021 documented in this encounter Miscellaneous Notes * Telephone Encounter - Lizz Negro RN - 01/08/2021 0825 EDT Medication(s) Requested: lyrica 300 mg, imitrex 100 mg Preferred Pharmacy: [facility] Is patient out of medication? Unknown Last Refill Date: 01/05/21 Last Visit Date with Ordering Provider: 11/07/20 Next Non-Acute Visit Date Scheduled with Care Team: 01/30/21 LIZZ NEGRO RN 01/08/2021 8:26 documented in this encounter Plan of Treatment Upcoming Encounters Date Type Department Care Team (Late st Contact Info) Description 06/29/2024 14:15 EDT Office Visit [facility] [address] [place], [place] [id number] Jean Munoz MD [address] [place] [phone] documented as of this encounter [...] MOUTH TWICE DAILY. daily max: 2 capsules 01/05/2021 01/08/2021 SUMAtriptan (IMITREX) 100 mg tabletIndications:Migrai ne without status migrainosus, not intractable, unspecified migraine type TAKE 1 TABLET BY MOUTH ONCE NEEDED FOR UP TO 1 DOSE FOR MIGRAINE. 01/05/2021 01/08/2021 documented as of this encounter Care Teams Rn Appeals Relationship Specialty Start Date End Date Jean Munoz MD [address] [place] [phone] PCP - General 12/31/08 Manny Rizzo MD [address] [place] [address] 04/20/10 documented as of this encounter
--- OUTSIDE RECORDS SUMMARY | 2024-06-10 07:13 | XMS_ITS | Encounter Summary ---
Author Organization [facility] Address [address] [place] [address] Care Team Providers Care Electric Spot Welder Name Role Phone Jean Munoz MD Primary Care Provider Manny Rizzo MD Unavailable Reason for Visit * Reason Comments Chronic Pain Encounter Details Date Type Department Care Team (Late st Contact Info) Description 08/15/2020 13:15 EST Telemedicine [facility] [address] [place] [address] Jean Munoz MD [address] [place] [phone] Chronic pain syndrome (Primary Dx); Chronic use of opiate for therapeutic purpose; Chronic low back pain, unspecified back pain laterality, unspecified whether sciatica present; Pain medication agreement Social History Tobacco Use Types Packs/Day Years [...] Da te methylphenidate HCl (RITALIN;METHYLIN) 10 mg tablet Take 1 Tab by mouth daily for 28 days. For narcolepsy Daily Max: 10 mg 28 Tab 08/19/2020 10/31/2020 methylphenidate HCl (RITALIN;METHYLIN) 10 mg tablet Take 1 Tab by mouth daily for 28 days. For narcolepsy Daily Max: 10 mg 28 Tab 09/16/2020 10/31/2020 methylphenidate HCl (RITALIN;METHYLIN) 10 mg tablet Take 1 Tab by mouth daily for 28 days. For narcolepsy Daily Max: 10 mg 28 Tab 10/14/2020 10/31/2020 methylphenidate HCl (RITALIN;METHYLIN) 20 mg tablet Take 2 Tabs by mouth daily for 28 days. For narcolepsy Daily Max: 40 mg 56 Tab 08/19/2020 10/31/2020 methylphenidate HCl (RITALIN;METHYLIN) 20 mg tablet Take 2 Tabs by mouth daily for 28 days. For narcolepsy Daily Max: 40 mg 56 Tab 09/16/2020 10/31/2020 methylphenidate HCl (RITALIN;METHYLIN) 20 mg tablet Take 2 Tabs by mouth daily for 28 days. For narcolepsy Daily Max: 40 mg 56 Tab 10/14/2020 10/31/2020 HYDROcodone-acetaminophe n (NORCO) 5-325 mg tabletIndications:Chroni c pain syndrome,Chronic use of opiate for therapeutic purpose,Chronic low back pain, unspecified back pain laterality, unspecified whether sciatica present,Pain medication agreement Take 1 Tab by mouth 4 times daily for 28 days. For chronic pain Daily Max: 4 Tabs 112 Tab 08/19/2020 10/31/2020 HYDROcodone-acetaminophe n (NORCO) 5-325 mg tabletIndications:Chroni c pain syndrome,Chronic use of opiate for therapeutic purpose,Chronic low back pain, unspecified back pain laterality, unspecified whether sciatica present,Pain medication agreement Take 1 Tab by mouth 4 times daily for 28 days. Daily Max: 4 Tabs 112 Tab 09/16/2020 10/31/2020 HYDROcodone-acetaminophe n (NORCO) 5-325 mg tabletIndications:Chroni c pain syndrome,Chronic use of opiate for therapeutic purpose,Chronic low back pain, unspecified back pain laterality, unspecified whether sciatica present,Pain medication agreement Take 1 Tab by mouth 4 times daily for 28 days. Daily Max: 4 Tabs 112 Tab 10/14/2020 10/31/2020 documented in this encounter Progress Notes * Kaitlyn Montero LPN - 08/15/2020 1315 EST Prescriptions for hydrocodone-acetaminophen and Methylphenidate placed in envelope and manager front for patient to cone picker during downtime. KAITLYN MONTERO LPN * Jean Munoz MD - 08/15/2020 1315 EST Liset was seen during computer downtime for a telephone visit. Has chronic pain stable. Renewed hydrocodone/APAP for 12 weeks along with methylphenidate for 12 weeks, end date 11/12/2019. Encouraged herto go to pharmacy for flu shot. See written note in scanned documents section of the chart. Plan for follow up before 11/11/2020. Total time 6 minutes. See written telephone attestation. documented in this encounter Plan of Treatment Upcoming Encounters Date Type Department Care Team (Late st Contact Info) Description 06/29/2024 14:15 EDT Office Visit [facility] [address] [place] [address] Jean Munoz MD [address] [place] [phone] documented as of this encounter Procedures Procedure Name Priority Date/Time Associated Diagnosis Comments ORDERS - SCANNED 01/06/2021 15:58 EDT documented in this encounter Results * ORDERS - SCANNED (01/06/2021 15:58 EDT) 01/06/2021 15:5 8 EDT Scan 2 Behavioral Health Aide ADMISSION ORDERABLE S documented in this encounter Visit Diagnoses Diagnosis [...] Da te methylphenidate HCl (RITALIN;METHYLIN) 20 mg tablet Take 2 Tabs by mouth daily for 28 days. For narcolepsy Daily Max: 40 mg Reorder 07/20/2020 10/01/2020 methylphenidate HCl (RITALIN;METHYLIN) 10 mg tablet Take 1 Tab by mouth daily for 28 days. For narcolepsy Daily Max: 10 mg Reorder 07/20/2020 10/01/2020 HYDROcodone-acetaminoph en (NORCO) 5-325 mg tabletIndications:Chron ic pain syndrome,Chronic use of opiate for therapeutic purpose,Chronic low back pain, unspecified back pain laterality, unspecified whether sciatica present,Pain medication agreement Take 1 Tab by mouth 4 times daily for 28 days. For chronic pain Daily Max: 4 Tabs Reorder 05/25/2020 10/01/2020 HYDROcodone-acetaminoph en (NORCO) 5-325 mg tabletIndications:Chron ic pain syndrome,Chronic use of opiate for therapeutic purpose,Chronic low back pain, unspecified back pain laterality, unspecified whether sciatica present,Pain medication agreement Take 1 Tab by mouth 4 times daily for 28 days. Daily Max: 4 Tabs Reorder 06/22/2020 10/01/2020 HYDROcodone-acetaminoph en (NORCO) 5-325 mg tabletIndications:Chron ic pain syndrome,Chronic use of opiate for therapeutic purpose,Chronic low back pain, unspecified back pain laterality, unspecified whether sciatica present,Pain medication agreement Take 1 Tab by mouth 4 times daily for 28 days. Daily Max: 4 Tabs Reorder 07/20/2020 10/01/2020 documented as of this encounter Care Teams Electric Spot Welder Relationship Specialty Start Date End Date Jean Munoz MD [address] [place] [phone] PCP - General 12/31/08 Manny Rizzo MD [address] [place] [phone] 04/20/10 documented as of this encounter
--- OUTSIDE RECORDS SUMMARY | 2024-06-10 07:13 | XMS_ITS | Encounter Summary ---
Author Organization [facility] Address [address] [place] [address] Care Team Providers Care Principle Industrial Hygienist Name Role Phone Jean Munoz MD Primary Care Provider Manny Rizzo MD Unavailable Reason for Visit * Reason Comments Other Encounter Details Date Type Department Care Team (Late st Contact Info) Description 09/07/2020 [facility] [address] [place] [address] Jean Munoz MD [address] [place] [phone] Other Social History Tobacco Use Types [...] Dispensed Refills Start Date End Da te XOPENEX HFA 45 mcg/actuation inhalerIndications:Panlo bular emphysema (HCC-CMS) INHALE TWO PUFFS BY MOUTH EVERY FOUR HOURS as needed for wheezing as directed. for shortness of breath 45 g 1 09/09/2020 05/26/2021 documented in this encounter Miscellaneous Notes * Telephone Encounter - Yadira Mccauley RN - 09/09/2020 1642 EST levalbuterol (XOPENEX HFA) 45 mcg/actuation inhaler [[id number]] ?? Order Details Dose: 2 Puff Route: inhalation Frequency: EVERY 4 HOURS PRN for Wheezing Dispense Quantity: 3 Inhaler Refills: 5 ?? Sig: Inhale 2 Puffs as directed every 4 hours as needed for Wheezing. For shortness of breath ?? Start Date: 08/30/19 End Date: -- Written Date: 08/30/19 Expiration Date: -- ?? amLODIPine (NORVASC) 5 mg tablet [[id number]] ??DISCONTINUED ?? Order Details Dose: 5 mg Route: oral Frequency: DAILY Dispense Quantity: 90 Tab Refills: 3 ?? Sig: Take 1 Tab by mouth daily. ?? Start Date: 09/20/19 End Date: 01/18/20 Discontinued by: Jean Munoz MD on 01/18/2020 10:48 ?? Written Date: 08/30/19 Expiration Date: -- ?? Next visit- none Last visit- 08/15/20 documented in this encounter Plan of Treatment Upcoming Encounters Date Type Department Care Team (Late st Contact Info) Description 06/29/2024 14:15 EDT Office Visit [facility] [address] [place], [place] [phone] Jean Munoz MD [address] [place] [phone] documented as of this encounter [...] needed for Wheezing. For shortness of breath 08/30/2019 09/09/2020 documented as of this encounter Care Teams Principle Industrial Hygienist Relationship Specialty Start Date End Date Jean Munoz MD [address] [place] [phone] PCP - General 12/31/08 Manny Rizzo MD [address] [place] [phone] 04/20/10 documented as of this encounter
--- OUTSIDE RECORDS SUMMARY | 2024-06-10 07:14 | XMS_ITS | Encounter Summary ---
Author Organization [facility] Address [address] [place] [address] Care Team Providers Care Gear Inspector Name Role Phone Jean Munoz MD Primary Care Provider Manny Rizzo MD Unavailable Afia Valle MD Unavailable [phone] Reason for Visit * Reason Onset Date Comments Appointment Related 03/05/2020 Encounter Details Date Type Department Care Team (Late st Contact Info) Description 03/05/2020 Telephone [facility] [address] [place] [address] [place], [place] [phone] Bassam Euceda MD [address] [facility] [place] [address] Appointment Related Social History Tobacco [...] encounter Miscellaneous Notes * Telephone Encounter - Shaista Forde - 03/05/2020 1553 EDT Called pt to schedule [facility] 7.1.20 @ 1330 Meeting ID: [id number] Password: [id number] documented in this encounter Plan of Treatment Upcoming Encounters Date Type Department Care Team (Late st Contact Info) Description 06/29/2024 14:15 EDT Office Visit [facility] [address] [place], [place] [phone] Jean Munoz MD [address] [place] [phone] documented as of this encounter Visit Diagnoses Not on filedocumented in this encounter Care Teams Gear Inspector Relationship Specialty Start Date End Date Jean Munoz MD [address] [place] [phone] PCP - General 12/31/08 Manny Rizzo MD [address] [place] [address] 04/20/10 Afia Valle MD [address] [place] [address] [address] [place] [phone] Care Team Radiation Oncology 07/02/21 documented as of this encounter
--- OUTSIDE RECORDS SUMMARY | 2024-06-10 07:14 | XMS_ITS | Encounter Summary ---
Author Organization [facility] Address [address] [place] [address] Care Team Providers Care Fuel Operator Name Role Phone Jean Munoz MD Primary Care Provider Manny Rizzo MD Unavailable Reason for Visit * Reason Comments Other Encounter Details Date Type Department Care Team (Late st Contact Info) Description 02/01/2020 [facility] [address] [place] [address] Jean Munoz MD [address] [place] [phone] Other Social History Tobacco Use Types Packs/Day Years Used Date Smoking Tobacco: Former Cigarettes 1.5 37 0 09/13/1975 - 09/13/2012 Smokeless Tobacco: Never Alcohol Use Standard Drinks/Week Comments No 0 (1 standard drink = 0.6 oz pur e alcohol) rarely Sex and Gender Information Value Date Recorded [...] Dispensed Refills Start Date End Da te SPIRIVA RESPIMAT 1.25 mcg/actuation inhalerIndications:Chroni c obstructive pulmonary disease, unspecified COPD type ([facility]) INHALE TWO PUFFS BY MOUTH DAILY DIRECTED 12 g 3 02/01/2020 01/27/2023 documented in this encounter Miscellaneous Notes * Telephone Encounter - Candice Luo RN - 02/01/2020 1103 EDT Requested Prescriptions Pending Prescriptions Disp Refills ??? SPIRIVA RESPIMAT 1.25 mcg/actuation inhaler [Pharmacy Med Name: Spiriva Respimat Inhalation Aerosol Solution 1.25 MCG/ACT] 12 g 2 Sig: INHALE TWO PUFFS BY MOUTH DAILY DIRECTED Pharmacy: [facility] Last Refill Date: 02/07/2019 Last Visit Date: 01/18/2020 Next Non-Acute Visit Date Scheduled with Care Team: No. Visit date not found Candice Wan RN 02/01/2020 11:03 documented in this encounter Plan of Treatment Upcoming Encounters Date Type Department Care Team (Late st Contact Info) Description 06/29/2024 14:15 EDT Office Visit [facility] [address] [place], [place] [phone] Jean Munoz MD [address] [place] [phone] documented as of this encounter Visit Diagnoses Diagnosis Chronic obstructive pulmonary disease, unspecified COPD type ([facility])- Primary Screening for osteoporosis- Primary Special screening [...] Discontinue Reason Start Date End Da te tiotropium bromide (SPIRIVA RESPIMAT) 1.25 mcg/actuation inhalerIndications:Chron ic obstructive pulmonary disease, unspecified COPD type ([facility]) INHALE TWO PUFFS (2.5 mcg) daily as directed 02/07/2019 02/01/2020 documented as of this encounter Care Teams Fuel Operator Relationship Specialty Start Date End Date Jean Munoz MD [address] [place] [phone] PCP - General 12/31/08 Manny Rizzo MD [address] [place] [address] 04/20/10 documented as of this encounter
--- OUTSIDE RECORDS SUMMARY | 2024-06-10 07:14 | XMS_ITS | Encounter Summary ---
Author Organization [facility] Address [address] [place] [address] Care Team Providers Care Education Rn Name Role Phone Jean Munoz MD Primary Care Provider Manny Rizzo MD Unavailable Reason for Visit * Reason Comments Chronic Pain Medication refills Encounter Details Date Type Department Care Team (Late st Contact Info) Description 05/23/2020 14:45 EDT Telemedicine [facility] [address] [place], [place] [phone] Jean Munoz MD [address] [place] [phone] Upper respiratory tract infection, unspecified type (Primary Dx); Chronic pain syndrome; Chronic low back pain, unspecified back pain laterality, unspecified whether sciatica present; Chronic use of opiate for therapeutic purpose; Pain medication agreement; Insomnia, unspecified type; Primary narcolepsy without cataplexy; Screen for colon cancer Social History Tobacco [...] Max: 4 Tabs 112 Tab 07/20/2020 10/01/2020 HYDROcodone-acetaminophe n (NORCO) 5-325 mg tabletIndications:Chroni c pain syndrome,Chronic use of opiate for therapeutic purpose,Chronic low back pain, unspecified back pain laterality, unspecified whether sciatica present,Pain medication agreement Take 1 Tab by mouth 4 times daily for 28 days. Daily Max: 4 Tabs 112 Tab 06/22/2020 10/01/2020 HYDROcodone-acetaminophe n (NORCO) 5-325 mg tabletIndications:Chroni c pain syndrome,Chronic use of opiate for therapeutic purpose,Chronic low back pain, unspecified back pain laterality, unspecified whether sciatica present,Pain medication agreement Take 1 Tab by mouth 4 times daily for 28 days. For chronic pain Daily Max: 4 Tabs 112 Tab 05/25/2020 10/01/2020 methylphenidate HCl (RITALIN;METHYLIN) 10 mg tablet Take 1 Tab by mouth daily for 28 days. For narcolepsy Daily Max: 10 mg 28 Tab 07/20/2020 10/01/2020 methylphenidate HCl (RITALIN;METHYLIN) 20 mg tablet Take 2 Tabs by mouth daily for 28 days. For narcolepsy Daily Max: 40 mg 56 Tab 07/20/2020 10/01/2020 methylphenidate HCl (RITALIN;METHYLIN) 20 mg tablet Take 2 Tabs by mouth daily for 28 days. For narcolepsy Daily Max: 40 mg 56 Tab 06/22/2020 05/23/2020 methylphenidate HCl (RITALIN;METHYLIN) 10 mg tablet Take 1 Tab by mouth daily for 28 days. For narcolepsy Daily Max: 10 mg 28 Tab 06/22/2020 05/23/2020 methylphenidate HCl (RITALIN;METHYLIN) 20 mg tablet Take 2 Tabs by mouth daily for 14 days. For narcolepsy Daily Max: 40 mg 28 Tab 06/08/2020 05/23/2020 methylphenidate HCl (RITALIN;METHYLIN) 10 mg tablet Take 1 Tab by mouth daily for 14 days. For narcolepsy Daily Max: 10 mg 14 Tab 06/08/2020 05/23/2020 zolpidem (AMBIEN) 5 mg tabletIndications:Insomn ia, unspecified type TAKE 1 TABLET BY MOUTH NIGHTLY AT BEDTIME as needed for sleep *daily max 1 tab 28 Tab 1 06/22/2020 02/18/2021 HYDROcodone-acetaminophe n (NORCO) 5-325 mg tabletIndications:Chroni c pain syndrome,Chronic use of opiate for therapeutic purpose,Chronic low back pain, unspecified back pain laterality, unspecified whether sciatica present,Pain medication agreement Take 1 Tab by mouth 4 times daily for 28 days. For chronic pain Daily Max: 4 Tabs 112 Tab 05/25/2020 05/24/2020 HYDROcodone-acetaminophe n (NORCO) 5-325 mg tabletIndications:Chroni c pain syndrome,Chronic use of opiate for therapeutic purpose,Chronic low back pain, unspecified back pain laterality, unspecified whether sciatica present,Pain medication agreement Take 1-2 Tabs by mouth every 6 hours as needed for up to 28 days for Pain. Daily Max: 8 Tabs 112 Tab 06/22/2020 05/24/2020 HYDROcodone-acetaminophe n (NORCO) 5-325 mg tabletIndications:Chroni c pain syndrome,Chronic use of opiate for therapeutic purpose,Chronic low back pain, unspecified back pain laterality, unspecified whether sciatica present,Pain medication agreement Take 1-2 Tabs by mouth every 6 hours as needed for up to 28 days for Pain. Daily Max: 8 Tabs 112 Tab 07/20/2020 05/24/2020 documented in this encounter Progress Notes * Kaitlyn Montero LPN - 05/23/2020 1445 EDT The [place] Prescription Monitoring System query has been completed. Pregabalin 300 mg: Filled: 05/13/2020 Quantity: 60 tabs for 30 days Zolpidem 5 mg: Filled: 05/05/2020 Quantity: 28 tabs for 28 days Hydrocodone-acetaminophen 5-325 mg: Filled: 04/24/2020 Quantity: 112 tabs for 28 days KAITLYN MONTERO LPN * Kaitlyn Montero LPN - 05/23/2020 1445 EDT Called patient and went through rooming questions and medication list. KAITLYN MONTERO LPN * Jean Munoz MD - 05/23/2020 1445 EDT Subjective: Patient ID: Liset Viera is an 59 y.o. female. Chief Complaint Patient presents with ??? Chronic Pain Medication refills HPI Liset is a 59 year old female with COPD, obesity, IGT, GERD, IBS, fibromyalgia, chronic pain on long term opiates, depression/anxiety, insomnia/narcolepsy, KATJA scheduled for video follow up for med refills. Recently has had some sinus congestion, nasal stuffiness, low grade fever for 2 days, no ear pain, sore throat, cough or increased dyspnea. Does not think she has COVID and declines any other evaluation or treatment. Chronic pain stable on hydrocodone. Also has chronic insomnia on zolpidem and narcolepsy followed by sleep clinic on methylphenidate. Has had muscle spasms, no change, using methocarbamol 1 tab 3-4x daily. Mood better on Cymbalta. Pain about same. BP good No TOB Defer colo A VPMS([place] Prescription Monitoring System) report on this patient was printed and reviewed today to ensure the prescribing and dispensing of their medications is in accordance with the treatment plan. Problem list, past medical history, medications, allergies, social and family history reviewed and updated in PRISM as appropriate. ROS - See HPI Objective: LMP 01/11/1987 Physical Exam On video is alert, NAD Assessment: See below Plan: iLset was seen today for chronic pain. Diagnoses and all orders for this visit: Upper respiratory tract infection, unspecified type May have viral URI, declines eval, discussed symptom management; Chronic pain syndrome Chronic low back pain, unspecified back pain laterality, unspecified whether sciatica present Chronic use of opiate for therapeutic purpose Pain medication agreement - HYDROcodone-acetaminophen (NORCO) 5-325 mg tablet; Take 1 Tab by mouth 4 times daily for 28 days.For chronic pain Daily Max: 4 Tabs - HYDROcodone-acetaminophen (NORCO) 5-325 mg tablet; Take 1 Tab by mouth 4 times daily for 28 days.Daily Max: 4 Tabs - HYDROcodone-acetaminophen (NORCO) 5-325 mg tablet; Take 1 Tab by mouth 4 times daily for 28 days.Daily Max: 4 Tabs Stable Renew meds Recheck 12 weeks Insomnia, unspecified type - zolpidem (AMBIEN) 5 mg tablet; TAKE 1 TABLET BY MOUTH NIGHTLY AT BEDTIME as needed for sleep *daily max 1 tab Primary narcolepsy without cataplexy - methylphenidate HCl (RITALIN;METHYLIN) 20 mg tablet; Take 2 Tabs by mouth daily for 28 days. For narcolepsy Daily Max: 40 mg - methylphenidate HCl (RITALIN;METHYLIN) 10 mg tablet; Take 1 Tab by mouth daily for 28 days. For narcolepsy Daily Max: 10 mg Screen for colon cancer Declines colo now Return in about 12 weeks (around 08/15/2020) for SERA video. This visit was completed as a Televideo visit using ZOOM. The concept of ???Telemedicine?? has been described [...] in patient???s medical or mental health care. Today's visit was provided through telemedicine video conferencing: The location of the patient : Home The location of the provider: Clinic Exam Room The following staff and their role did participate in today's encounter visit: This visit was conducted by video. I spent a total of 25 minutes with Liset Maged Maximiliano today and 15 minutes of that time was spent in counseling and coordination of care as described in the progress note. The patient was verbally educated on the above issues, there no barriers to understanding and the patient indicated that they understood and agreed to the above plan. Jean Munoz MD 05/24/2020 22:51 documented in this encounter Plan of Treatment Upcoming Encounters Date Type Department Care Team (Late st Contact Info) Description 06/29/2024 14:[address] [facility] [address] [place], [place] [id number] Jean Munoz MD [address] [place] [phone] documented as of this encounter Visit Diagnoses Diagnosis Upper respiratory tract infection, unspecified type- Primary Chronic pain syndrome Chronic low back pain, unspecified back pain laterality, unspecified whether sciatica present Chronic use of opiate for therapeutic purpose Pain medication agreement Encounter for long-term (current) use of other medications Insomnia, unspecified type Primary narcolepsy without cataplexy Screen for colon cancer Special screening for [...] unspecified whether sciatica present,Pain medication agreement Take 1-2 Tabs by mouth every 6 hours as needed for up to 28 days for Pain. Daily Max: 8 Tabs Reorder 03/30/2020 05/23/2020 HYDROcodone-acetaminoph en (NORCO) 5-325 mg tabletIndications:Chron ic pain syndrome,Chronic use of opiate for therapeutic purpose,Chronic low back pain, unspecified back pain laterality, unspecified whether sciatica present,Pain medication agreement Take 1-2 Tabs by mouth every 6 hours as needed for up to 28 days for Pain. Daily Max: 8 Tabs Reorder 02/03/2020 05/23/2020 zolpidem (AMBIEN) 5 mg tabletIndications:Insom yesi, unspecified type TAKE 1 TABLET BY MOUTH NIGHTLY AT BEDTIME as needed for sleep *daily max 1 tab Reorder 04/01/2020 05/23/2020 HYDROcodone-acetaminoph en (NORCO) 5-325 mg tabletIndications:Chron ic pain syndrome,Chronic use of opiate for therapeutic purpose,Chronic low back pain, unspecified back pain laterality, unspecified whether sciatica present,Pain medication agreement Take 1 Tab by mouth 4 times daily for 28 days. For chronic pain Daily Max: 4 Tabs Reorder 04/27/2020 05/23/2020 methylphenidate HCl (RITALIN;METHYLIN) 10 mg tablet Take one tab in the afternoon for narcolepsy. Reorder 05/09/2020 05/23/2020 methylphenidate HCl (RITALIN;METHYLIN) 20 mg tablet Take 2 tabs by mouth in the morning. Reorder 05/09/2020 05/23/2020 methylphenidate HCl (RITALIN;METHYLIN) 10 mg tablet Take 1 Tab by mouth daily for 14 days. For narcolepsy Daily Max: 10 mg Reorder 06/08/2020 05/23/2020 methylphenidate HCl (RITALIN;METHYLIN) 20 mg tablet Take 2 Tabs by mouth daily for 14 days. For narcolepsy Daily Max: 40 mg Reorder 06/08/2020 05/23/2020 methylphenidate HCl (RITALIN;METHYLIN) 10 mg tablet Take 1 Tab by mouth daily for 28 days. For narcolepsy Daily Max: 10 mg Reorder 06/22/2020 05/23/2020 methylphenidate HCl (RITALIN;METHYLIN) 20 mg tablet Take 2 Tabs by mouth daily for 28 days. For narcolepsy Daily Max: 40 mg Reorder 06/22/2020 05/23/2020 HYDROcodone-acetaminoph en (NORCO) 5-325 mg tabletIndications:Chron ic pain syndrome,Chronic use of opiate for therapeutic purpose,Chronic low back pain, unspecified back pain laterality, unspecified whether sciatica present,Pain medication agreement Take 1 Tab by mouth 4 times daily for 28 days. For chronic pain Daily Max: 4 Tabs Error 05/25/2020 05/24/2020 HYDROcodone-acetaminoph en (NORCO) 5-325 mg tabletIndications:Chron ic pain syndrome,Chronic use of opiate for therapeutic purpose,Chronic low back pain, unspecified back pain laterality, unspecified whether sciatica present,Pain medication agreement Take 1-2 Tabs by mouth every 6 hours as needed for up to 28 days for Pain. Daily Max: 8 Tabs Error 06/22/2020 05/24/2020 HYDROcodone-acetaminoph en (NORCO) 5-325 mg tabletIndications:Chron ic pain syndrome,Chronic use of opiate for therapeutic purpose,Chronic low back pain, unspecified back pain laterality, unspecified whether sciatica present,Pain medication agreement Take 1-2 Tabs by mouth every 6 hours as needed for up to 28 days for Pain. Daily Max: 8 Tabs Error 07/20/2020 05/24/2020 documented as of this encounter Care Teams Education Rn Relationship Specialty Start Date End Date Jean Munoz MD [address] [place] [phone] PCP - General 12/31/08 Manny Rizzo MD [address] [place] [address] 04/20/10 documented as of this encounter
--- OUTSIDE RECORDS SUMMARY | 2024-06-10 07:14 | XMS_ITS | Encounter Summary ---
Author Organization [facility] Address [address] [place] [address] Care Team Providers Care Sampler And Test Preparer Name Role Phone Jean Munoz MD Primary Care Provider Manny Rizzo MD Unavailable Reason for Visit * Reason Onset Date Comments Medications Refill 02/06/2020 Encounter Details Date Type Department Care Team (Late st Contact Info) Description 02/06/2020 Refill [facility] Sleep Program - [address] [phone] Bassam Euceda MD [address] [facility]. [address] [place] [phone] Medications Refill Social History Tobacco Use Types [...] one tab in the afternoon for narcolepsy. 30 Tab 02/08/2020 03/06/2020 methylphenidate HCl (RITALIN;METHYLIN) 20 mg tablet Take 2 tabs by mouth in the morning. 60 Tab 02/08/2020 03/06/2020 documented in this encounter Miscellaneous Notes * Telephone Encounter - Corrina Ac RN - 02/06/2020 1211 EDT Pt last seen by on 02/13/19. Refill requests for both methylphenidate prescriptions. [facility] Prescription Monitoring System query has been completed per the following requirement(s): Annual Verification. Pended to [id number]. * Telephone Encounter - Shaista Forde - 02/06/2020 1147 EDT Medication Refill Medication(s) Requested: methylphenidate HCl (RITALIN;METHYLIN) 20 mg tablet - Take 2 tabs by mouth in the morning. methylphenidate HCl (RITALIN;METHYLIN) 10 mg tablet - Take one tab in the afternoon for narcolepsy. Pharmacy (reconcile pharmacy list): [id number] - [place], [place] - [address] Is patient out of medication? Kristi Forde 02/06/202011:47 documented in this encounter Plan of Treatment Upcoming Encounters Date Type Department Care Team (Late st Contact Info) Description 06/29/2024 14:15 EDT Office Visit [facility] [address] [place] [address] Jean Munoz MD [address] [place] [phone] documented as of this encounter Visit Diagnoses Not on filedocumented in this encounter Discontinued Medications Medication Sig Discontinue Reason Start Date End Da te methylphenidate HCl (RITALIN;METHYLIN) 20 mg tablet Take 2 tabs by mouth in the morning. Reorder 01/11/2020 02/06/2020 methylphenidate HCl (RITALIN;METHYLIN) 10 mg tablet Take one tab in the afternoon for narcolepsy. Reorder 01/11/2020 02/06/2020 documented as of this encounter Care Teams Sampler And Test Preparer Relationship Specialty Start Date End Date Jean Munoz MD [address] [place] [phone] PCP - General 12/31/08 Manny Rizzo MD [address] [place] [address] 04/20/10 documented as of this encounter
--- OUTSIDE RECORDS SUMMARY | 2024-06-10 07:14 | XMS_ITS | Encounter Summary ---
Author Organization [facility] Address [address] [place] [address] Care Team Providers Care Press Operator Instant Print Shop Name Role Phone Jean Munoz MD Primary Care Provider Manny Rizzo MD Unavailable Reason for Visit * Reason Onset Date Comments Medication Management 04/09/2020 Encounter Details Date Type Department Care Team (Late st Contact Info) Description 04/09/2020 Telephone [facility] Sleep Program - [address] [address] Octavio Li, chief recordist Management Social History Tobacco Use Types Packs/Day [...] encounter Miscellaneous Notes * Telephone Encounter - Bassam Euceda MD - 04/26/2020 1116 EDT I just spent about a half hour reviewing her chart. We have records in [facility] going back about 2006 at which time she was on NO pain meds and had a long history of insomnia and receiving benzos and at times treatment for presumptive RLS. She then developed neck and shoulder pain, was placed on narcotics and presented due to EDS around 2008. She had a PSG w MSLT while on complex meds including narcotics that may have affected her MSLTfindings. There is no mention of a med taper or actigraphy or sleep diary in the week(s) prior to her MSLT. Since that time she has been receiving higher doses of narcotics and stimulants. I am not sure she has narcolepsy and developing this illness in her 40s after a long history of insomnia seems unlikely. I think her MSLT is not valid. She has daytime tiredness related to sedative medications. I will reach out to Dr. Munoz via this note and urge him to give me a call if he wishes to discuss. On meeting Liset for the first time I agreed to continue her current high dose stimulant therapy but am seeking to reduce it. I do not know the prospects for reducing her narcotics. Bottom line: NO EXTRA DOSES of Ritalin. Please relay to pharmacy and patient. * Telephone Encounter - Octavio Li RN - 04/09/2020 1503 EDT Spoke with pharmacist. Patient consistently picks up ritalin RXs days early each time. Since October 19 would have accumulated an extra 8 days worth. Pharmacist had wanted to hold d/t this, but patient reported last pickup that she was out and that the felt provider OK with her taking extra during day if she felt she would fall asleep. No notes explicitly seen in chart saying OK to take extra during day To [place] [facility] * Telephone Encounter - Octavio Li RN - 04/09/2020 3997 EDT Call from pharmacy. Called back, pharmacist at lunch, call back in 15 min documented in this encounter Plan of Treatment Upcoming Encounters Date Type Department Care Team (Late st Contact Info) Description 06/29/2024 14:15 EDT Office Visit [facility] [address] [place], [place] [phone] Jean Munoz MD [address] [place] [phone] documented as of this encounter Visit Diagnoses Not on filedocumented in this encounter Care Teams Press Operator Instant Print Shop Relationship Specialty Start Date End Date Jean Munoz MD [address] [place] [phone] PCP - General 12/31/08 Manny Rizzo MD [address] [place] [phone] 04/20/10 documented as of this encounter
--- OUTSIDE RECORDS SUMMARY | 2024-06-10 07:14 | XMS_ITS | Encounter Summary ---
Author Organization [facility] Address [address] [place] [address] Care Team Providers Care Aboriginal [employer] Liaison Officer Name Role Phone Jean Munoz MD Primary Care Provider Manny Rizzo MD Unavailable Reason for Referral * Radiology Services (Routine/Next Available) - Closed Specialty Diagnoses / Procedures Referred By Alex t Referred To Contact Diagnoses Chronic pain of left knee Procedures XR KNEE LEFT 4 OR MORE VIEWS Chavo Multani MD MSc [address] [phone] Referral ID Status Reason Start Date Expiration Date Visits Re quested Visits Authorized [id number] Closed 06/04/2020 1 1 Reason for Visit * Radiology Services (Routine/Next Available) - Closed Specialty Diagnoses / Procedures Referred By Alex weldon Referred To Contact Diagnoses Chronic pain of left knee Procedures XR KNEE LEFT 4 OR MORE VIEWS Chavo Multani MD MSc [address] [phone] Referral ID Status Reason Start Date Expiration Date Visits Re quested Visits Authorized [id number] Closed 06/04/2020 1 1 Encounter Details Date Type Department Care Team (Latest Contact Info) Description 06/05/2020 14:30 EDT - 06/05/2020 14:44 EDT Hospital Encounter [facility] [address] [place] [address] Chronic pain of left knee Discharge Disposition: [...] 3 08/30/2019 11/23/2022 lancetsIndications:Impa ired glucose tolerance Brand:Qool, tests 2 times daily 100 Each 2 [...] 5 07/14/2019 10/23/2020 pregabalin (LYRICA) 300 mg capsuleIndications:Eyelet Operator majo low back pain Take 1 Cap [...] 3 07/24/2019 07/07/2021 SPIRIVA RESPIMAT 1.25 mcg/actuation inhalerIndications:Eyelet Operator majo obstructive pulmonary disease, unspecified COPD type ([facility]) INHALE TWO PUFFS BY MOUTH DAILY DIRECTED [...] [facility] [address] [place] [address] Jean Munoz MD [address] [place] [phone] documented as of this encounter Procedures Procedure Name Priority Date/Time Associated Diagnosis Comments XR KNEE LEFT 4 OR MORE VIEWS Routine 06/05/2020 15:09 EDT Chronic pain of left knee documented in this encounter Results * XR KNEE LEFT 4 OR MORE VIEWS (06/05/2020 15:09 EDT) Anatomical Region Laterality Modality Lower Extremities Left Computed Radio graphy 06/06/2020 10:3 3 EDT [...] assessment for jointeffusion. Chavo Multani MD MSc [facility] IMG DIAG NOSTIC IMAGING ORDERABLES documented in [...] colon documented in this encounter Care Teams [employer] Liaison Officer Relationship Specialty Start Date End Date Jean Munoz MD [address] [place] [phone] PCP - General 12/31/08 Manny Rizzo MD [address] [place] [phone] 04/20/10 documented as of this encounter
--- OUTSIDE RECORDS SUMMARY | 2024-06-10 07:14 | XMS_ITS | Encounter Summary ---
Author Organization [facility] Address [address] [place] [address] Care Team Providers Care Petal Cutter Name Role Phone Jean Munoz MD Primary Care Provider Manny Rizzo MD Unavailable Reason for Visit * Reason Onset Date Comments Prior Auth, Medication 12/05/2019 Encounter Details Date Type Department Care Team (Late st Contact Info) Description 12/05/2019 Telephone [facility] [address] [place] [address] Jean Munoz MD [address] [place] [phone] Prior Auth, Medication Social History [...] Telephone Encounter - Kaitlyn Montero LPN - 12/05/2019 1133 EDT Medication: Daliresp Insurance Co: [place] Medicaid Approval # (if applicable): [id number] Approval dates: 12/05/2019 - 12/04/2020 Name of Pharmacy notified: [facility] * Telephone Encounter - Kaitlyn Montero LPN - 12/05/2019 0912 EDT PA sent to insurance ([place] Medicaid) for Daliresp. Waiting for response. KAITLYN MONTERO LPN documented in this encounter Plan of Treatment Upcoming Encounters Date Type Department Care Team (Late st Contact Info) Description 06/29/2024 14:15 EDT Office Visit [facility] [address] [place], [place] [phone] Jean Munoz MD [address] [place] [phone] documented as of this encounter Visit Diagnoses Not on filedocumented in this encounter Care Teams Petal Cutter Relationship Specialty Start Date End Date Jean Munoz MD [address] [place] [phone] PCP - General 12/31/08 Manny Rizzo MD [address] [place] [phone] 04/20/10 documented as of this encounter
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
--- OUTSIDE RECORDS SUMMARY | 2024-06-10 07:14 | XMS_ITS | Encounter Summary ---
Author Organization [facility] Address [address] [place] [address] Care Team Providers Care Diaper Folder Name Role Phone Jean Munoz MD Primary Care Provider Manny Rizzo MD Unavailable Afia Valle MD Unavailable [phone] Reason for Visit * Reason Onset Date Comments Appointment Related 03/13/2020 Encounter Details Date Type Department Care Team (Late st Contact Info) Description 03/13/2020 Telephone [facility] Neurology - [address] [place], [place] [id number] Bassam Euceda MD [address] [facility]. [address] [place] [phone] Appointment Related Social History Tobacco Use Types [...] Miscellaneous Notes * Telephone Encounter - Kavita Eisenberg MA - 03/13/2020 1327 EDT Reached out to patient to see if she needed assistance getting on zoom for her 1:30 pm appointment and patient relayed that she'd like to cancel today's appointment and reschedule. documented in this encounter Plan of Treatment Upcoming Encounters Date Type Department Care Team (Late st Contact Info) Description 06/29/2024 14:15 EDT Office Visit [facility] [address] [place] [address] Jean Munoz MD [address] [place] [address] documented as of this encounter Visit Diagnoses Not on filedocumented in this encounter Care Teams Diaper Folder Relationship Specialty Start Date End Date Jean Munoz MD [address] [place] [address] PCP - General 12/31/08 Manny Rizzo MD [address] [place] [phone] 04/20/10 Afia Valle MD [address] [place] [address] 2 [place] [phone] MD Care Team Radiation Oncology 07/02/21 documented as of this encounter
--- OUTSIDE RECORDS SUMMARY | 2024-06-10 07:14 | XMS_ITS | Encounter Summary ---
Author Organization [facility] Address [address] [place] [address] Care Team Providers Care Clothes Separator Name Role Phone Jean Munoz MD Primary Care Provider Manny Rizzo MD Unavailable Reason for Visit * Reason Onset Date Comments Medications Refill 03/05/2020 Encounter Details Date Type Department Care Team (Late st Contact Info) Description 03/05/2020 Refill [facility] Sleep Program - [address] [address] Bassam Euceda MD [address] [facility]. [address] [place] [phone] Medications Refill Social History Tobacco Use Types [...] by mouth in the morning. 60 Tab 03/08/2020 04/02/2020 methylphenidate HCl (RITALIN;METHYLIN) 10 mg tablet Take one tab in the afternoon for narcolepsy. 30 Tab 03/08/2020 04/02/2020 documented in this encounter Miscellaneous Notes * Telephone Encounter - Corrina Ac RN - 03/07/2020 1129 EDT Routed request to again. See pt message. * Telephone Encounter - Francesca Jean - 03/07/2020 1117 EDT Pt calling stating that she spoke with [facility] in [place] regarding her prescription refill requests and they told her that they had not received them yet. * Telephone Encounter - Corrina Ac RN - 03/06/2020 0732 EDT Last seen 02/13/19 , upcoming appt on 03/13/20 with . Refill requests for both methylphenidate prescriptions. The [place] Prescription Monitoring System query has been completed per the following requirement(s): Annual Verification. Pended orders to , provider technical communication teacher. * Telephone Encounter - Corrina Ac RN - 03/05/2020 1517 EDT Pt last seen by on 02/13/19. Refill requests for both methylphenidate prescriptions. Routed to Sleep [facility] Pool as pt due for a follow up with a Sleep MD. * Telephone Encounter - Francesca Jean - 03/05/2020 1502 EDT Medication Refill ?? Medication(s) Requested: ?? methylphenidate HCl (RITALIN;METHYLIN) 20 mg tablet - Take 2 tabs by mouth in the morning. ?? methylphenidate HCl (RITALIN;METHYLIN) 10 mg tablet - Take one tab in the afternoon for narcolepsy. ?? Pharmacy (reconcile pharmacy list): ?? [id number] - [place], [place] - [address] Is patient out of medication? N documented in this encounter Plan of Treatment Upcoming Encounters Date Type Department Care Team (Late st Contact Info) Description 06/29/2024 14:15 EDT Office Visit [facility] Medicine [facility] [address] [place], [place] [phone] Jean Munoz MD [address] [place] [address] documented as of this encounter Visit Diagnoses Not on filedocumented in this encounter Discontinued Medications Medication Sig Discontinue Reason Start Date End Da te methylphenidate HCl (RITALIN;METHYLIN) 10 mg tablet Take one tab in the afternoon for narcolepsy. Reorder 02/08/2020 03/06/2020 methylphenidate HCl (RITALIN;METHYLIN) 20 mg tablet Take 2 tabs by mouth in the morning. Reorder 02/08/2020 03/06/2020 documented as of this encounter Care Teams Clothes Separator Relationship Specialty Start Date End Date Jean Munoz MD [address] [place] [phone] PCP - General 12/31/08 Manny Rizzo MD [address] [place] [phone] 04/20/10 documented as of this encounter
--- OUTSIDE RECORDS SUMMARY | 2024-06-10 07:14 | XMS_ITS | Encounter Summary ---
Author Organization [facility] Address [address] [place] [address] Care Team Providers Care Theatrical Trouper Name Role Phone Jean Munoz MD Primary Care Provider Manny iRzzo MD Unavailable Reason for Referral * Radiology Services (Routine/Next Available) - Closed Specialty Diagnoses / Procedures Referred By Contac t Referred To Contact Diagnoses Chronic pain of left knee Procedures XR KNEE RIGHT 3 VIEWS Chavo Multani MD MSc [address] [phone] Referral ID Status Reason Start Date Expiration Date Visits Re quested Visits Authorized [id number] Closed 06/04/2020 1 1 * Radiology Services (Routine/Next Available) - Closed Specialty Diagnoses / Procedures Referred By Contac t Referred To Contact Diagnoses Chronic pain of left knee Procedures XR KNEE LEFT 4 OR MORE VIEWS Chavo Multani MD MSc [address] [phone] Referral ID Status Reason Start Date Expiration Date Visits Re quested Visits Authorized [id number] Closed 06/04/2020 1 1 Reason for Visit * Reason Onset Date Comments Knee Pain 06/04/2020 Encounter Details Date Type Department Care Team (Late st Contact Info) Description 06/04/2020 Orders Only [facility] Total Joint Program - [address] [address] Chavo Multani MD MSc [facility] [address] [place] [address] Chronic pain of left knee (Primary Dx) Social History Tobacco Use Types [...] Info) Description 06/29/2024 14:15 EDT Office Visit [facility] Family Medicine [facility] [address] [place] [address] Jean Munoz MD [address] [place] [address] documented as of this encounter Results * XR KNEE RIGHT [...] assessment for jointeffusion. Chavo Multani MD MSc [facility] IMG DIAG NOSTIC IMAGING ORDERABLES * XR KNEE LEFT 4 OR MORE [...] Visit Diagnoses Diagnosis Chronic pain of left knee- Primary Pain in joint, lower leg Chronic pain of left knee Pain in joint, lower leg Chronic pain of left knee Pain in [...] colon documented in this encounter Care Teams Theatrical Trouper Relationship Specialty Start Date End Date Jean Munoz MD [address] [place] [address] PCP - General 12/31/08 Manny Rizzo MD [address] [place] [phone] 04/20/10 documented as of this encounter
--- OUTSIDE RECORDS SUMMARY | 2024-06-10 07:14 | XMS_ITS | Encounter Summary ---
Author Organization [facility] Address [address] [place] [address] Care Team Providers Care Needle Loom Setter Name Role Phone Jean Munoz MD Primary Care Provider Manny Rizzo MD Unavailable Reason for Visit * Reason Onset Date Comments Medications Refill 04/19/2020 Encounter Details Date Type Department Care Team (Late st Contact Info) Description 04/19/[address] [facility] [address] [place], [place] [phone] Jean Munoz MD [address] [place] [address] Medications Refill Social History Tobacco [...] Dispensed Refills Start Date End Da te HYDROcodone-acetaminophen (NORCO) 5-325 mg tabletIndications:Chronic pain syndrome,Chronic use of opiate for therapeutic purpose,Chronic low back pain, unspecified back pain laterality, unspecified whether sciatica present,Pain medication agreement Take 1 Tab by mouth 4 times daily for 28 days. For chronic pain Daily Max: 4 Tabs 112 Tab 04/27/2020 05/23/2020 documented in this encounter Miscellaneous Notes * Telephone Encounter - Jean Munoz MD - 04/24/2020 1719 EDT Chart reviewed, next prescription due 04/27/2020, next appointment is 05/01/2020. New prescription done for next 4 weeks. Will address further at next visit. * Telephone Encounter - Cat Armijo - 04/19/2020 1455 EDT Medication(s) Requested:hydrocodone 5-325 (we bumped pt's appt 04/23 and she will run out prior to new appt) [facility]acy[facility]. Is patient out of medication? No Last Refill Date: 03/30/20 Last Visit Date with Ordering Provider: 01/18/20 Next Non-Acute Visit Date Scheduled with Care Team: Yes. 05/01 Cat Armijo 04/19/2020 14:55 documented in this encounter Plan of Treatment Upcoming Encounters Date Type Department Care Team (Late st Contact Info) Description 06/29/2024 14:15 EDT Office Visit [facility] [address] [place] [address] Jean Munoz MD [address] [place] [phone] documented as of this encounter Visit Diagnoses [...] Discontinue Reason Start Date End Da te HYDROcodone-acetaminophen (NORCO) 5-325 mg tabletIndications:Chronic pain syndrome,Chronic use of opiate for therapeutic purpose,Chronic low back pain, unspecified back pain laterality, unspecified whether sciatica present,Pain medication agreement Take 1-2 Tabs by mouth every 6 hours as needed for up to 28 days for Pain. Daily Max: 8 Tabs Reorder 03/02/2020 04/19/2020 documented as of this encounter Care Teams Needle Loom Setter Relationship Specialty Start Date End Date Jean Munoz MD [address] [place] [phone] PCP - General 12/31/08 Manny Rizzo MD [address] [place] [address] 04/20/10 documented as of this encounter
--- OUTSIDE RECORDS SUMMARY | 2024-06-10 07:14 | XMS_ITS | Encounter Summary ---
Author Organization [facility] Address [address] [place] [address] Care Team Providers Care Instrument Tech Name Role Phone Jean Munoz MD Primary Care Provider Manny Rizzo MD Unavailable Reason for Visit * Reason Onset Date Comments Medication Management 05/23/2020 Encounter Details Date Type Department Care Team (Late st Contact Info) Description 05/23/2020 Telephone [facility] [address] [place] [address] Jean Munoz MD [address] [place] [phone] Medication Management Social History Tobacco Use [...] Telephone Encounter - Jean Munoz MD - 05/24/2020 0921 EDT Please cancel prior scripts, new scripts done today, may fill first script today, thanks. * Telephone Encounter - Gabby Beltran - 05/23/2020 1610 EDT Pharmacy called : Last filled on 04/24, Picked up on 04/27 They called about direction discrepancies on the 3 scripts. The daily max varies from first script to the other two. * Telephone Encounter - Gabby Beltran - 05/23/2020 1548 EDT Reason for Call: Medication Management Summary/Symptoms: Pt states that she ran out of hydrocodone on Wednesday - hasn't taken any since Wednesday. Can't belt picker until the . - is asking for a call back. Onset and Duration? Appointment Offered? No Gabby Beltran 05/23/2020 15:48 documented in this encounter Plan of Treatment Upcoming Encounters Date Type Department Care Team (Late st Contact Info) Description 06/29/2024 14:15 EDT Office Visit [facility] [address] [place], [place] [phone] Jean Munoz MD [address] [place] [phone] documented as of this encounter Visit Diagnoses Not on filedocumented in this encounter Care Teams Instrument Tech Relationship Specialty Start Date End Date Jean Munoz MD [address] [place] [phone] PCP - General 12/31/08 Manny Rizzo MD [address] [place] [address] 04/20/10 documented as of this encounter
--- OUTSIDE RECORDS SUMMARY | 2024-06-10 07:14 | XMS_ITS | Encounter Summary ---
Author Organization [facility] Address [address] [place] [address] Care Team Providers Care Director Of People Name Role Phone Jean Munoz MD Primary Care Provider Manny Rizzo MD Unavailable Encounter Details Date Type Department Care Team (Latest Contact Info) Description 12/08/2019 Travel Social History Tobacco Use Types Packs/Day [...] have Coronavirus / COVID-19? No / Unsure 12/08/2019 11:28 EDT documented as of this encounter Functional [...] [facility] [place] [facility] [address] [place] [address] Jean Munoz MD [address] [place] [phone] documented as of this encounter Visit Diagnoses Not on filedocumented in this encounter Care Teams Director Of People Relationship Specialty Start Date End Date Jean Munoz MD [address] [place] [phone] PCP - General 12/31/08 Manny Rizzo MD [address] [place] [phone] 04/20/10 documented as of this encounter
--- OUTSIDE RECORDS SUMMARY | 2024-06-10 07:14 | XMS_ITS | Encounter Summary ---
Author Organization [facility] Address [address] [place] [address] Care Team Providers Care Mother Repairer Name Role Phone Jean Munoz MD Primary Care Provider Manny Rizzo MD Unavailable Afia Valle MD Unavailable Jesi Leong COMB SETTER Unavailable [phone] SaloJesi shanks COMB SETTER Unavailable [phone] Reason for Visit * Reason Comments Other Encounter Details Date Type Department Care Team (Late st Contact Info) Description 12/06/2019 Refill [facility] Family Medicine [facility] [address] [place], [place] [phone] Jean Munoz MD [address] [place] [phone] Other Social History Tobacco Use Types [...] methocarbamoL (ROBAXIN) 500 mg tabletIndications:Chronic pain syndrome take 2 tablets by mouth at bedtime 180 Tab 1 12/06/2019 02/05/2022 documented in this encounter Miscellaneous Notes * Telephone Encounter - Jean Munoz MD - 12/06/2019 1317 EDT Prescription done for methocarbamol, please let patient know. Also will be due for other prescriptions on December 10, please schedule a telephone visit on her before that date, thanks. * Telephone Encounter - Lizz Mccauley RN - 12/06/2019 1314 EDT Medication(s) Requested: robaxin [facility]acy[facility] Is patient out of medication? Unknown Last Refill Date: 11/13/19 Last Visit Date with Ordering Provider: 10/09/19 Next Non-Acute Visit Date Scheduled with Care Team: 01/04/20 LIZZ MCCAULEY RN 12/06/2019 13:14 documented in this encounter Plan of Treatment Upcoming Encounters Date Type Department Care Team (Late st Contact Info) Description 06/29/2024 14:15 EDT Office Visit [facility] [address] [place] [address] Jean Munoz MD [address] [place] [address] documented as of this encounter Visit Diagnoses Diagnosis Chronic pain syndrome Screening for osteoporosis- Primary [...] take 2 tablets by mouth at bedtime 11/13/2019 12/06/2019 documented as of this encounter Additional Health Concerns Infection Onset Date Last Indicated Resolved Time R/O COVID-19 05/15/2022 05/15/2022 05/20/2022 22:1 6 EDT R/O COVID-19 11/14/2022 11/14/2022 11/14/2022 19:1 6 EST documented as of this encounter Care Teams Mother Repairer Relationship Specialty Start Date End Date Jean Munoz MD [address] [place] [address] PCP - General 12/31/08 Manny Rizzo MD [address] [place] [phone] 04/20/10 Afia Valle MD [address] [facility] [address] [place] [address] MD Care Team Radiation Oncology 07/02/21 Jesi Leong LICSW [address] [place] [phone] Sales Account Director 12/24/21 09/20/22 Jesi Leong LICSW [address] [place] [phone] Behavioral Health Sales Account DirectorHearing Stenographer Care 10/19/22 01/23/24 documented as of this encounter
--- OUTSIDE RECORDS SUMMARY | 2024-06-10 07:14 | XMS_ITS | Encounter Summary ---
Author Organization [facility] Address [address] [place] [address] Care Team Providers Care Systems Analyst Name Role Phone Jean Munoz MD Primary Care Provider Manny Rizzo MD Unavailable Reason for Visit * Reason Comments Other Encounter Details Date Type Department Care Team (Late st Contact Info) Description 12/04/2019 [facility] [address] [place] [address] Jean Munoz MD [address] [place] [phone] Other Social History Tobacco Use Types [...] Dispensed Refills Start Date End Da te sumatriptan (IMITREX) 50 mg tabletIndications:Migraine without status migrainosus, not intractable, unspecified migraine type take 1 tablet by mouth as needed for migraine. daily limit 2 tabs 9 Tab 1 12/04/2019 12/11/2019 documented in this encounter Miscellaneous Notes * Telephone Encounter - Liset Gonzalez RN - 12/04/2019 1323 EDT Last rf Imitrex 50 mg Take (1) PO/prn #9 with 2 rf on 09/09/19 Last OV with RL 10/09/19 (f/u chronic pain) documented in this encounter Plan of Treatment Upcoming Encounters Date Type Department Care Team (Late st Contact Info) Description 06/29/2024 14:15 EDT Office Visit [facility] [address] [place], [place] [phone] Jean Munoz MD [address] [place] [address] documented as of this encounter [...] Start Date End Da te sumatriptan (IMITREX) 50 mg tabletIndications:Migrain e without status migrainosus, not intractable, unspecified migraine type TAKE ONE TABLET BY MOUTH NEEDED for migraine. daily max: 2 tabs 09/09/2019 12/04/2019 documented as of this encounter Care Teams Systems Analyst Relationship Specialty Start Date End Date Jean Munoz MD [address] [place] [phone] PCP - General 12/31/08 Manny Rizzo MD [address] [place] [phone] 04/20/10 documented as of this encounter
--- OUTSIDE RECORDS SUMMARY | 2024-06-10 07:14 | XMS_ITS | Encounter Summary ---
Author Organization [facility] Address [address] [place] [address] Care Team Providers Care Archeologist Name Role Phone Jean Munoz MD Primary Care Provider Manny Rizzo MD Unavailable Afia Valle MD Unavailable Jesi Leong QUALITY CONTROL TESTER Unavailable [phone] SaloJesi shanks QUALITY CONTROL TESTER Unavailable Reason for Visit * Reason Onset Date Comments DME 01/19/2020 Encounter Details Date Type Department Care Team (Late st Contact Info) Description 01/19/2020 Telephone [facility] [address] [place] [address] Jean Munoz MD [address] [place] [address] DME Social History Tobacco Use [...] encounter Miscellaneous Notes * Telephone Encounter - Cathy Grullon - 01/19/2020 0958 EDT LM to find out where DME's need to be sent documented in this encounter Plan of Treatment Upcoming Encounters Date Type Department Care Team (Late st Contact Info) Description 06/29/2024 14:15 EDT Office Visit [facility] [address] [place] [address] Jean Munoz MD [address] [place] [address] documented as of this encounter Visit Diagnoses Not on filedocumented in this encounter Additional Health Concerns Infection Onset Date Last Indicated Resolved Time R/O COVID-19 05/15/2022 05/15/2022 05/20/2022 22:1 6 EDT documented as of this encounter Care Teams Archeologist Relationship Specialty Start Date End Date Jean Munoz MD [address] [place] [address] PCP - General 12/31/08 Manny Rizzo MD [address] [place] [phone] 04/20/10 Afia Valle MD [address] [place] [address], [facility], [address] [place] [phone] MD Care Team Radiation Oncology 07/02/21 Jesi Leong LICSW [address] [place] [address] Private Tutor 12/24/21 09/20/22 Jesi Leong LICSW [address] [place] [address] Behavioral Health Private TutorTailings Dam Laborer Care 10/19/22 01/23/24 documented as of this encounter
--- OUTSIDE RECORDS SUMMARY | 2024-06-10 07:14 | XMS_ITS | Encounter Summary ---
Author Organization [facility] Address [address] [place] [address] Care Team Providers Care Tuckpointer Name Role Phone Jean Munoz MD Primary Care Provider Manny Rizzo MD Unavailable Reason for Visit * Reason Comments Chronic Pain Encounter Details Date Type Department Care Team (Late st Contact Info) Description 01/18/2020 10:30 EDT Telemedicine [facility] [address] [place] [address] Jean Munoz MD [address] [place] [phone] Chronic pain syndrome (Primary Dx); Chronic use of opiate for therapeutic purpose; Chronic low back pain, unspecified back pain laterality, unspecified whether sciatica present; Pain medication agreement; Panlobular emphysema ([facility]-CMS); Obesity (BMI 30-39.9); Impaired glucose tolerance; Gastroesophageal reflux disease, esophagitis presence not specified; Anxiety; Chronic pain of left knee; Migraine without status migrainosus, not intractable, unspecified migraine type; Insomnia, unspecified type; Primary narcolepsy without cataplexy [...] Dispensed Refills Start Date End Da te DULoxetine (CYMBALTA) 60 mg capsuleIndications:Anxiet y Take 2 Caps by mouth daily. For depression, anxiety 180 Each 3 03/12/2020 01/30/2021 HYDROcodone-acetaminophen (NORCO) 5-325 mg tabletIndications:Chronic pain syndrome,Chronic use of opiate for therapeutic purpose,Chronic low back pain, unspecified back pain laterality, unspecified whether sciatica present,Pain medication agreement Take 1-2 Tabs by mouth every 6 hours as needed for up to 28 days for Pain. Daily Max: 8 Tabs 112 Tab 02/03/2020 05/23/2020 HYDROcodone-acetaminophen (NORCO) 5-325 mg tabletIndications:Chronic pain syndrome,Chronic use of opiate for therapeutic purpose,Chronic low back pain, unspecified back pain laterality, unspecified whether sciatica present,Pain medication agreement Take 1-2 Tabs by mouth every 6 hours as needed for up to 28 days for Pain. Daily Max: 8 Tabs 112 Tab 03/02/2020 04/19/2020 HYDROcodone-acetaminophen (NORCO) 5-325 mg tabletIndications:Chronic pain syndrome,Chronic use of opiate for therapeutic purpose,Chronic low back pain, unspecified back pain laterality, unspecified whether sciatica present,Pain medication agreement Take 1-2 Tabs by mouth every 6 hours as needed for up to 28 days for Pain. Daily Max: 8 Tabs 112 Tab 03/30/2020 05/23/2020 documented in this encounter Progress Notes * Kaitlyn Montero LPN - 01/18/2020 1030 EDT The [place] Prescription Monitoring System query has been completed per the following requirement(s): Annual Verification. ZOLPIDEM TARTRATE 5 MG TABLET Filled: 01/03/2020 Quantity: 28 tabs for 28 days HYDROCODONE-ACETAMIN 5-325 MG Filled: 01/06/2020 Quantity: 112 tabs for 28 days Pregabablin 300 mg capsules: Filled: 01/11/2020 Quantity: 60 capsules for 30 days Methylphenidate 20 mg tablets: Filled: 01/11/2020 Quantitiy: 60 tabs for 30 days Methylphenidate 10 mg tablets: Filled: 01/11/2020 Quantity: 30 tabs for 30 days KAITLYN MONTERO LPN * Jean Munoz MD - 01/18/2020 1030 EDT Family Medicine Progress Note TELEMEDICINE VIDEO VISIT Liset Viera 1960 Date: 01/18/2020 S: Liset is a 59 y.o. 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 At last visit in September discussed muscle spasm, plan methocarbamol prn, massage. Also had gatroenteritis. Cymbalta was increased to 30 mg. A1C was 5.8. Had strep throat and pneumonia in October and was seen at [facility]. Was seen at [facility] on 10/18, had syncope due to hypotension, amlodipine stopped (wa on this for migraineprophylaxis). Today, confirms recent events as noted, stopped amlodipine. Checks BP occasionally. Headaches improved. Does not think that BuSpar is helping anxiety. Did increase duloxetine previously as noted above. Not taking methocarbamol regularly now. Also trouble with left knee, had fall in past, still has pain, sensation of giving out, sometimes swelling, sometimes stiff, no locking or catching. Had mammogram recently that was normal. Has IGT, last A1C 5.8 in September Chronic pain stable on hydrocodone. Also has chronic insomnia on zolpidem and narcolepsy followed by sleep clinic on methylphenidate. A [employer]([place] Prescription Monitoring System) report on this patient was printed and reviewed today to ensure the prescribing and dispensing of their medications is in accordance with the treatment plan. Last prescription for hydrocodone filled 01/05 #112, zolpidem on 01/02 #28, pregabalin 01/10 #60, methylphenidate 01/10 #60. Wants Rx shower chair due to chronic pain including knee pain, rubber gloves due to recent COVID 19pandemic and her chronic lung disease. Problem list, past medical history, medications, allergies, social and family history reviewed and updated in [facility] as appropriate. ROS: breathing is OK. O: Vital signs not obtained. On video she is cooperative, no distress. Has IGT, last A1C 5.8 in September Reviewed MRI left knee 2013 medial meniscus tear. A: Liset is a 59 y.o. female with multiple problems including COPD, obesity, GERD, chronic pain on rodent exterminator opiates, recent hypotension improved off of amlodipine, migraine stable, anxiety not responding to buspirone, left knee pain likely due to medial meniscus tear on previous MRI. Wants Rx shower chair, rubber gloves. P: Liset was seen today for chronic pain. Diagnoses and all orders for this visit: Chronic pain syndrome Chronic use of opiate for therapeutic purpose Chronic low back pain, unspecified back pain laterality, unspecified whether sciatica present Pain medication agreement - HYDROcodone-acetaminophen (NORCO) 5-325 mg tablet; Take 1-2 Tabs by mouth every 6 hours as neededfor up to 28 days for Pain. Daily Max: 8 Tabs - HYDROcodone-acetaminophen (NORCO) 5-325 mg tablet; Take 1-2 Tabs by mouth every 6 hours as neededfor up to 28 days for Pain. Daily Max: 8 Tabs - HYDROcodone-acetaminophen (NORCO) 5-325 mg tablet; Take 1-2 Tabs by mouth every 6 hours as neededfor up to 28 days for Pain. Daily Max: 8 Tabs Chronic pain stable, will renew hydrocodone prescriptions, recheck 12 weeks Panlobular emphysema (HCC-CMS) Stable Obesity (BMI 30-39.9) Not addressed in detail today Impaired glucose tolerance Reviewed recent A1c 5.8 improved Gastroesophageal reflux disease, esophagitis presence not specified Stable Anxiety Because buspirone has not been helpful we decided to discontinue it. Will increase duloxetine to 120 mg daily Chronic pain of left knee Likely due to meniscus tear seen on previous MRI. Will refer to orthopedics. Migraine without status migrainosus, not intractable, unspecified migraine type Now off of amlodipine, doing well. Insomnia, unspecified type Stable on zolpidem Primary narcolepsy without cataplexy Stable on methylphenidate per sleep clinic DME done for shower chair and gloves Has ADR but does not have COLST on file. COLST Form Liset Viera, 1960 Resuscitate: DNR / Attempt CPR: Resuscitate Intubation: Trial Period of Intubation / Multi-Lumen Airway and Ventilation Transfer to Hospital: Transfer Antibiotics: Use antibiotics Feeding Tube: Trial period of feeding tube, goal recovery Parenteral Nutrition or Hydration: Trial period of parenteral nutrition or hydration, goal recovery Medical Interventions: Full Treatment Informed consent obtained from: Patient Verbal signature by clinician: Jean Munoz MD 01/18/2020 17:51 This visit was completed as a Televideo [...] : Home The location of the provider: Office The following staff and their role did participate in today's encounter visit: This visit was conducted by Video. I spent a total of 40 minutes with Liset Viera today and 30 minutes of that time was spent in counseling and coordination of care as described in the progress note. Patient Education Topic: as above Method: Verbal Taught to: Patient Barriers: None Outcomes: Verbalized understanding Jean Munoz MD 01/18/2020 17:51 * Kaitlyn Montero LPN - 01/18/2020 1030 EDT Called patient and went through rooming questions and medication list. KAITLYN MONTERO LPN documented in this encounter Plan of Treatment Upcoming Encounters Date Type Department Care Team (Late st Contact Info) Description 06/29/2024 14:15 EDT Office Visit [facility] [address] [place] [address] Jean Munoz MD [address] [place] [phone] documented as of this encounter Visit Diagnoses Diagnosis Chronic pain syndrome- Primary Chronic use of opiate for therapeutic purpose Chronic low back pain, unspecified back pain laterality, unspecified whether sciatica present Pain medication agreement Encounter for long-term (current) use of other medications Panlobular emphysema (HCC-CMS) Other emphysema Obesity (BMI 30-39.9) Obesity, unspecified Impaired glucose tolerance Impaired glucose tolerance test Gastroesophageal reflux disease, esophagitis presence not specified Anxiety Anxiety state, unspecified Chronic pain of left knee Pain in joint, lower leg Migraine without status migrainosus, not intractable, unspecified migraine type Insomnia, unspecified type Primary narcolepsy without cataplexy [...] Discontinue Reason Start Date End Da te amLODIPine (NORVASC) 5 mg tabletIndications:Migrai ne without status migrainosus, not intractable, unspecified migraine type Take 1 Tab by mouth daily. 09/20/2019 01/18/2020 busPIRone (BUSPAR) 15 mg tabletIndications:Anxiet y Take 1 Tab by mouth 3 times daily. For anxiety Alternate therapy 08/30/2019 01/18/2020 HYDROcodone-acetaminophe n (NORCO) 5-325 mg tabletIndications:Chroni c pain syndrome,Chronic use of opiate for therapeutic purpose,Chronic low back pain, unspecified back pain laterality, unspecified whether sciatica present,Pain medication agreement Take 1-2 Tabs by mouth every 6 hours as needed for up to 28 days for Pain. Daily Max: 8 Tabs Reorder 01/06/2020 01/16/2020 HYDROcodone-acetaminophe n (NORCO) 5-325 mg tabletIndications:Chroni c pain syndrome,Chronic use of opiate for therapeutic purpose,Chronic low back pain, unspecified back pain laterality, unspecified whether sciatica present,Pain medication agreement Take 1-2 Tabs by mouth every 6 hours as needed for up to 28 days for Pain. Daily Max: 8 Tabs Reorder 11/13/2019 01/16/2020 HYDROcodone-acetaminophe n (NORCO) 5-325 mg tabletIndications:Chroni c pain syndrome,Chronic use of opiate for therapeutic purpose,Chronic low back pain, unspecified back pain laterality, unspecified whether sciatica present,Pain medication agreement Take 1-2 Tabs by mouth every 6 hours as needed for up to 28 days for Pain. Daily Max: 8 Tabs Reorder 10/16/2019 01/16/2020 DULoxetine (CYMBALTA) 60 mg capsule Take 1 Cap by mouth daily. Reorder 12/11/2019 01/16/2020 documented as of this encounter Orders Equipment Count Last Ordered Date First Orde red Date GENERIC DME ORDER 2 01/18/2020 documented in this encounter Care Teams Tuckpointer Relationship Specialty Start Date End Date Jean Munoz MD [address] [place] [phone] PCP - General 12/31/08 Manny Rizzo MD [address] [place] [phone] 04/20/10 documented as of this encounter
--- OUTSIDE RECORDS SUMMARY | 2024-06-10 07:14 | XMS_ITS | Encounter Summary ---
Author Organization [facility] Address [address] [place] [address] Care Team Providers Care Utility Plant Operative Name Role Phone Jean Munoz MD Primary Care Provider Manny Rizzo MD Unavailable Reason for Visit * Reason Comments Follow-up Encounter Details Date Type Department Care Team (Late st Contact Info) Description 12/11/2019 13:15 EDT Telemedicine [facility] [address] [place], [place] [phone] Jean Munoz MD [address] [place] [phone] Chronic low back pain, unspecified back pain laterality, unspecified whether sciatica present (Primary Dx); Chronic use of opiate for therapeutic purpose; Pain medication agreement; Chronic pain syndrome; Impaired glucose tolerance; Obesity (BMI 30-39.9); Major depressive disorder, recurrent, severe without psychotic features (HCC-CMS); Anxiety; Migraine without status migrainosus, not intractable, unspecified [...] End Da te sumatriptan (IMITREX) 100 mg tabletIndications:Migraine without status migrainosus, not intractable, unspecified migraine type Take 1 Tab by mouth once as needed for up to 1 dose for Migraine. 9 Tab 2 12/11/2019 03/21/2020 DULoxetine (CYMBALTA) 60 mg capsule Take 1 Cap by mouth daily. 30 Each 2 12/11/2019 01/16/2020 documented in this encounter Progress Notes * Kaitlyn Montero LPN - 12/11/2019 1315 EDT The [place] Prescription Monitoring System query has been completed per the following requirement(s): Annual Verification. 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 Feels that Buspar isn't helping. Now taking 15 mg 3x/day. Anxiety worse at night. Has lost 2 familymembers recently. Also on duloxetine (Cymbalta) 30 mg daily. Also had hypotension, was seen in Urgent Care, was told to stop amlodipine. BP has been better. Sonchecks it for her. Usually 105/80s. Also checking temperature, pulse. Headaches, uses Imitrex prn, wants to increase to 100 mg, now off amlodipine as above, not keeping headache diary. Also had fall, 3 weeks ago, was seen in [place], Xray no fracture. Had bruise. Chronic pain, on hydrocodone/APAP. A [employer]([place] Prescription Monitoring System) report on this patient was printed and reviewed today to ensure the prescribing and dispensing of their medications is in accordance with the treatment plan. Rx hydrocodone filled last Wednesday, end date 01/08/2020. Also narcolepsy/insomnia. Followed by Dr Bacon. She is prescribing methylphenidate. COPD/emphysema/asthma,followed by Pulmonology, on Advair, Spiriva, Xopenex prn, Daliresp, Duonebs. Needed new nebulizer at last visit. Doing well. Active problem list, past medical history, past surgical history, medications, allergies, family history and social history were reviewed. ROS - See HPI A/P: Chronic low back pain, unspecified back pain laterality, unspecified whether sciatica present Chronic pain syndrome Chronic use of opiate for therapeutic purpose Pain medication agreement Stable Recheck next visit Will be due for meds at that visit Chronic obstructive pulmonary disease, unspecified COPD type (HCC-CMS) Stable Major depressive disorder, recurrent, severe without psychotic features (HCC-CMS) Anxiety - DULoxetine (CYMBALTA) 60 mg delayed release capsule; Take 1 Cap by mouth daily. Increase Cymbalta to 60 mg Contiue Buspar for now Obesity (BMI 30-39.9) Has lost weight Impaired glucose tolerance Recent A1C 5.8 Insomnia, unspecified type - zolpidem (AMBIEN) 5 mg tablet; TAKE 1 TABLET BY MOUTH NIGHTLY AT BEDTIME NEEDED FOR SLEEP. DAILY MAX: 5 MG Migraine without status migrainosus, not intractable, unspecified migraine type Stable off amlodipine Increase Imitrex prn to 100 mg Patient Education Topic: as above Method: Verbal Taught to: Patient Barriers: None Outcomes: Verbalized understanding Recheck as scheduled documented in this encounter Plan of Treatment Upcoming Encounters Date Type Department Care Team (Late st Contact Info) Description 06/29/2024 14:15 EDT Office Visit [facility] [address] [place], [place] [phone] Jean Munoz MD [address] [place] [phone] documented as of this encounter Visit Diagnoses Diagnosis Chronic low back pain, unspecified back pain laterality, unspecified whether sciatica present- Primary Chronic use of opiate for therapeutic purpose Pain medication agreement Encounter for long-term (current) use of other medications Chronic pain syndrome Impaired glucose tolerance Impaired glucose tolerance test Obesity (BMI 30-39.9) Obesity, unspecified Major depressive disorder, recurrent, severe without psychotic features (HCC- CMS) Major depressive disorder, recurrent episode, severe, without mention of psychotic behavior Anxiety Anxiety state, unspecified Migraine without status migrainosus, not intractable, unspecified [...] Start Date End Da te DULoxetine (CYMBALTA) 30 mg delayed release capsuleIndications:Anxiet y,Major depressive disorder, recurrent, severe without psychotic features (HCC-CMS) Take 1 Cap by mouth daily. Dose adjustment 10/09/2019 12/11/2019 sumatriptan (IMITREX) 50 mg tabletIndications:Migrain e without status migrainosus, not intractable, unspecified migraine type take 1 tablet by mouth as needed for migraine. daily limit 2 tabs 12/04/2019 12/11/2019 documented as of this encounter Care Teams Utility Plant Operative Relationship Specialty Start Date End Date Jean Munoz MD [address] [place] [phone] PCP - General 12/31/08 Manny Rizzo MD [address] [place] [phone] 04/20/10 documented as of this encounter
--- OUTSIDE RECORDS SUMMARY | 2024-06-10 07:14 | XMS_ITS | Encounter Summary ---
Author Organization [facility] Address [address] [place] [address] Care Team Providers Care Wet Washer Machine Name Role Phone Jean Munoz MD Primary Care Provider Manny Rizzo MD Unavailable Afia Valle MD Unavailable Jesi Leong CUSTOMER LEADER Unavailable [phone] SaloJesi shanks CUSTOMER LEADER Unavailable Reason for Visit * Reason Comments Other Encounter Details Date Type Department Care Team (Late st Contact Info) Description 03/21/2020 Refill [facility] Family Medicine [facility] [address] [place], [place] [phone] Jean Munoz MD [address] [place] [phone] Other Social History Tobacco Use [...] TO 1 DOSE FOR MIGRAINE. 9 Tab 1 03/21/2020 05/22/2020 documented in this encounter Miscellaneous Notes * Telephone Encounter - Jean Munoz MD - 03/21/2020 1305 EDT Chart reviewed, had video visit in January. Does not have follow-up visit scheduled. Overdue for preventative visit. Last prescription for sumatriptan and done in November. Also on hydrocodone and last prescription for that will end on April 27. Prescription done for sumatriptan with 1 refill. Will schedule follow-up prior to April 27. * Telephone Encounter - Lizz Mccauley RN - 03/21/2020 1019 EDT Medication(s) Requested: imitrex [facility]acy[facility] Is patient out of medication? Unknown Last Refill Date: 12/11/19 Last Visit Date with Ordering Provider:01/18/20 Next Non-Acute Visit Date Scheduled with Care Team: none LIZZ MCCAULEY RN 03/21/2020 10:19 documented in this encounter Plan of Treatment Upcoming Encounters Date Type Department Care Team (Late st Contact Info) Description 06/29/2024 14:[address] [facility] [address] [place] [address] Jean Munoz MD [address] [place] [address] documented as of this encounter [...] End Da te sumatriptan (IMITREX) 100 mg tabletIndications:Migrain e without status migrainosus, not intractable, unspecified migraine type Take 1 Tab by mouth once as needed for up to 1 dose for Migraine. 12/11/2019 03/21/2020 documented as of this encounter Additional Health Concerns Infection Onset Date Last Indicated Resolved Time R/O COVID-19 05/15/2022 05/15/2022 05/20/2022 22:1 6 EDT R/O COVID-19 11/14/2022 11/14/2022 11/14/2022 19:1 6 EST documented as of this encounter Care Teams Wet Washer Machine Relationship Specialty Start Date End Date Jean Munoz MD [address] [place] [address] PCP - General 12/31/08 Manny Rizzo MD [address] [place] [address] 04/20/10 Afia Valle MD [address] [place] [address], [facility], [address] [place] [phone] MD Care Team Radiation Oncology 07/02/21 Jesi Leong [facility] [address] [place] [address] Acid Adjuster 12/24/21 09/20/22 Jesi Leong [facility] [address] [place] [address] Behavioral Health Acid AdjusterFarm Worker Care 10/19/22 01/23/24 documented as of this encounter
--- OUTSIDE RECORDS SUMMARY | 2024-06-10 07:14 | XMS_ITS | Encounter Summary ---
Author Organization [facility] Address [address] [place] [address] Care Team Providers Care Hardwood Floor Finisher Name Role Phone Jean Munoz MD Primary Care Provider Manny Rizzo MD Unavailable Reason for Visit * Reason Onset Date Comments Medications Refill 01/11/2020 Encounter Details Date Type Department Care Team (Late st Contact Info) Description 01/11/2020 Refill Formerly named [facility] [address] [place], [place] [phone] Jean Munoz MD [address] [place] [address] Medications Refill Social History Tobacco [...] End Da te pregabalin (LYRICA) 300 mg capsuleIndications:Chronic low back pain Take 1 Cap by mouth 2 times daily. Daily Max: 600 mg 60 Each 5 01/11/2020 06/21/2020 documented in this encounter Miscellaneous Notes * Telephone Encounter - Jean Munoz MD - 01/11/2020 1734 EDT Script done * Telephone Encounter - Gabby Beltran - 01/11/2020 1357 EDT Pt is out, following up * Telephone Encounter - Kavita Baxter - 01/11/2020 1137 EDT Medication(s) Requested: lyrica Preferred Pharmacy: [facility] Is patient out of medication? Yes Last Refill Date: 08.11.19 Last Visit Date with Ordering Provider: 01/04/20 Next Non-Acute Visit Date Scheduled with Care Team: Yes. Kavita Baxter 01/11/2020 11:37 documented in this encounter Plan of Treatment Upcoming Encounters Date Type Department Care Team (Late st Contact Info) Description 06/29/2024 14:15 EDT Office Visit [facility] Medicine [address] [address] Jean Munoz MD [address] [place] [address] documented as of this encounter [...] TAKE ONE CAPSULE BY MOUTH TWICE DAILY Reorder 08/11/2019 01/11/2020 documented as of this encounter Care Teams Hardwood Floor Finisher Relationship Specialty Start Date End Date Jean Munoz MD [address] [place] [address] PCP - General 12/31/08 Manny Rizzo MD [address] [place] [phone] 04/20/10 documented as of this encounter
--- OUTSIDE RECORDS SUMMARY | 2024-06-10 07:14 | XMS_ITS | Encounter Summary ---
Author Organization [facility] Address [address] [place] [address] Care Team Providers Care Medical Receptionist Biller Name Role Phone Jean Munoz MD Primary Care Provider Manny Rizzo MD Unavailable Reason for Visit * Reason Comments Other Encounter Details Date Type Department Care Team (Late st Contact Info) Description 03/29/2020 [facility] [address] [place] [address] John Dodd MD [address] [place] [address] Other Social History Tobacco Use Types [...] sleep *daily max 1 tab 28 Tab 2 04/01/2020 05/23/2020 documented in this encounter Miscellaneous Notes * Telephone Encounter - Yadira Mccauley RN - 04/01/2020 1419 EDT zolpidem (AMBIEN) 5 mg tablet [[id number]] ?? Order Details Dose, Route, Frequency: As Directed Dispense Quantity: 28 Tab Refills: 2 Fills remaining: -- ?? Sig: TAKE 1 TABLET BY MOUTH NIGHTLY AT BEDTIME NEEDED FOR SLEEP. DAILY MAX: 5 MG ?? Written Date: 01/03/20 Expiration Date: 07/01/20 Start Date: 01/03/20 Next ov- none Last ov- 01/18/20 documented in this encounter Plan of Treatment Upcoming Encounters Date Type Department Care Team (Late st Contact Info) Description 06/29/2024 14:15 EDT Office Visit [facility] [address] [place], [place] [phone] Jean Munoz MD [address] [place] [phone] documented as of this encounter Visit Diagnoses [...] NEEDED FOR SLEEP. DAILY MAX: 5 MG 01/03/2020 04/01/2020 documented as of this encounter Care Teams Medical Receptionist Biller Relationship Specialty Start Date End Date Jean Munoz MD [address] [place] [address] PCP - General 12/31/08 Manny Rizzo MD [address] [place] [phone] 04/20/10 documented as of this encounter
--- OUTSIDE RECORDS SUMMARY | 2024-06-10 07:14 | XMS_ITS | Encounter Summary ---
Author Organization [facility] Address [address] [place] [address] Care Team Providers Care Translator Deaf Name Role Phone Jean Munoz MD Primary Care Provider Manny Rizzo MD Unavailable Afia Valle MD Unavailable SaloJesi shanks PERIPHERAL EQUIPMENT OPERATOR Unavailable SaloJesi shanks E PERIPHERAL EQUIPMENT OPERATOR Unavailable Reason for Visit * Reason Onset Date Comments Medications Refill 12/11/2019 Encounter Details Date Type Department Care Team (Late st Contact Info) Description 12/11/2019 Refill [facility] - [place] [address] [place] [id number] Bassam Euceda MD [address] [facility]. Level [address] [place] [phone] Medications Refill Social History Tobacco Use Types [...] by mouth in the morning. 60 Tab 12/14/2019 01/08/2020 methylphenidate HCl (RITALIN;METHYLIN) 10 mg tablet Take one tab in the afternoon for narcolepsy. 30 Tab 12/14/2019 01/08/2020 documented in this encounter Miscellaneous Notes * Telephone Encounter - Corrina Ac RN - 12/11/2019 0910 EDT Pt last seen by on 02/13/19. Refill requests for both methylphenidate prescriptions. [facility] Prescription Monitoring System query has been completed per the following requirement(s): Annual Verification. Pended orders to Yvonne Hernandez NP. * Telephone Encounter - Shaista Forde - 12/11/2019 0944 EDT Medication Refill Medication(s) Requested: methylphenidate HCl (RITALIN;METHYLIN) 10 mg tablet - Take one tab in the afternoon for narcolepsy. methylphenidate HCl (RITALIN;METHYLIN) 20 mg tablet - Take 2 tabs by mouth in the morning. Pharmacy (reconcile pharmacy list): [id number] - [place], [place] - [address] Is patient out of medication? Kristi Forde 12/11/20199:52 documented in this encounter Plan of Treatment Upcoming Encounters Date Type Department Care Team (Late st Contact Info) Description 06/29/2024 14:15 EDT Office Visit [facility] [address] [place] [address] Jean Munoz MD [address] [place] [address] documented as of this encounter Visit Diagnoses Not on filedocumented in this encounter Discontinued Medications Medication Sig Discontinue Reason Start Date End Da te methylphenidate HCl (RITALIN;METHYLIN) 10 mg tablet Take one tab in the afternoon for narcolepsy. Reorder 11/16/2019 12/11/2019 methylphenidate HCl (RITALIN;METHYLIN) 20 mg tablet Take 2 tabs by mouth in the morning. Reorder 11/16/2019 12/11/2019 documented as of this encounter Additional Health Concerns Infection Onset Date Last Indicated Resolved Time R/O COVID-19 05/15/2022 05/15/2022 05/20/2022 22:1 6 EDT R/O COVID-19 11/14/2022 11/14/2022 11/14/2022 19:1 6 EST documented as of this encounter Care Teams Translator Deaf Relationship Specialty Start Date End Date Jean Munoz MD [address] [place] [address] PCP - General 12/31/08 Manny Rizzo MD [address] [place] [address] 04/20/10 Afia Valle MD [address] [place] [address] 2 [place] [address] MD Care Team Radiation Oncology 07/02/21 Jesi Leong [facility] [address] [place] [phone] Perioperative Tech 12/24/21 09/20/22 Jesi Leong PERIPHERAL EQUIPMENT OPERATOR [address] [place] [phone] Behavioral Health Perioperative TechTrucking Supervisor Care 10/19/22 01/23/24 documented as of this encounter
--- OUTSIDE RECORDS SUMMARY | 2024-06-10 07:14 | XMS_ITS | Encounter Summary ---
Author Organization [facility] Address [address] [place] [address] Care Team Providers Care Market Gardener Name Role Phone Jean Munoz MD Primary Care Provider Manny Rizzo MD Unavailable Afia Valle MD Unavailable Jesi Leong CALCULATING MACHINE OPERATOR Unavailable SaloJesi shanks E CALCULATING MACHINE OPERATOR Unavailable Reason for Visit * Reason Comments Other Encounter Details Date Type Department Care Team (Late st Contact Info) Description 05/19/2020 Refill [facility] [address] [place] [address] Jean Munoz MD [address] [place] [address] Other Social History Tobacco Use [...] for migraine 9 Tab 1 05/22/2020 01/05/2021 documented in this encounter Miscellaneous Notes * Telephone Encounter - Endy Griffiths - 05/22/2020 1233 EDT Requested Prescriptions Pending Prescriptions Disp Refills ??? sumatriptan (IMITREX) 100 mg tablet [Pharmacy Med Name: SUMAtriptan Succinate Oral Tablet 100 MG] 9 Tab 0 Sig: take 1 tablet by mouth once as needed for up to 1 dose for migraine Pharmacy: [facility] Last Refill Date: 03/21/20 Last Visit Date: 05/01/20 Next Non-Acute Visit Date Scheduled with Care Team: 05/23/2020 ENDY GRIFFITHS RN 05/22/2020 12:34 documented in this encounter Plan of Treatment Upcoming Encounters Date Type Department Care Team (Late st Contact Info) Description 06/29/2024 14:15 EDT Office Visit [facility] [address] [place] [address] Jean Munoz MD [address] [place] [address] documented as of this encounter [...] FOR UP TO 1 DOSE FOR MIGRAINE. 03/21/2020 05/22/2020 documented as of this encounter Additional Health Concerns Infection Onset Date Last Indicated Resolved Time R/O COVID-19 05/15/2022 05/15/2022 05/20/2022 22:1 6 EDT R/O COVID-19 11/14/2022 11/14/2022 11/14/2022 19:1 6 EST documented as of this encounter Care Teams Market Gardener Relationship Specialty Start Date End Date Jean Munoz MD [address] [place] [address] PCP - General 12/31/08 Manny Rizzo MD [facility] [place] [phone] 04/20/10 Afia Valle MD [address] [place] [address] 2 [place] [phone] MD Care Team Radiation Oncology 07/02/21 Jesi Leong [facility] [address] [place] [phone] Latin Teacher 12/24/21 09/20/22 Jeis Leong [facility] [address] [place] [phone] Behavioral Health Latin TeacherAssistant Front End Manager Care 10/19/22 01/23/24 documented as of this encounter
--- OUTSIDE RECORDS SUMMARY | 2024-06-10 07:14 | XMS_ITS | Encounter Summary ---
Author Organization [facility] Address [address] [place] [address] Care Team Providers Care Board Saw Runner Name Role Phone Jean Munoz MD Primary Care Provider Manny Rizzo MD Unavailable Reason for Visit * Reason Onset Date Comments Medications Refill 04/02/2020 Encounter Details Date Type Department Care Team (Late st Contact Info) Description 04/02/2020 Refill [facility] Sleep Program - [address] [address] Bassam Euceda MD [address] [facility]. Level [address] [place] [phone] Medications Refill Social History Tobacco Use Types [...] by mouth in the morning. 60 Tab 04/07/2020 04/30/2020 methylphenidate HCl (RITALIN;METHYLIN) 10 mg tablet Take one tab in the afternoon for narcolepsy. 30 Tab 04/07/2020 04/30/2020 documented in this encounter Miscellaneous Notes * Telephone Encounter - Corrina Ac RN - 04/02/2020 1147 EDT Last visit with on 03/27/20. Refill requests for methylphenidate 20 mg and 10 mg. The [place] Prescription Monitoring System query has been completed per the following requirement(s): Annual Verification. Pended post dated orders to the provider. * Telephone Encounter - Shaista Forde - 04/02/2020 1128 EDT Medication Refill Medication(s) Requested: methylphenidate HCl (RITALIN;METHYLIN) 20 mg tablet - Take 2 tabs by mouth in the morning. methylphenidate HCl (RITALIN;METHYLIN) 10 mg tablet - Take one tab in the afternoon for narcolepsy. Pharmacy (reconcile pharmacy list): [id number] - [place], [place] - [address] Is patient out of medication? Kristi Forde 04/02/202011:28 documented in this encounter Plan of Treatment Upcoming Encounters Date Type Department Care Team (Late st Contact Info) Description 06/29/2024 14:15 EDT Office Visit [facility] 3 [place] [address] Jean Munoz MD [address] [place] [address] documented as of this encounter Visit Diagnoses Not on filedocumented in this encounter Discontinued Medications Medication Sig Discontinue Reason Start Date End Da te methylphenidate HCl (RITALIN;METHYLIN) 10 mg tablet Take one tab in the afternoon for narcolepsy. Reorder 03/08/2020 04/02/2020 methylphenidate HCl (RITALIN;METHYLIN) 20 mg tablet Take 2 tabs by mouth in the morning. Reorder 03/08/2020 04/02/2020 documented as of this encounter Care Teams Board Saw Runner Relationship Specialty Start Date End Date Jean Munoz MD [address] [place] [phone] PCP - General 12/31/08 Manny Rizzo MD [facility]5 [place] [address] 04/20/10 documented as of this encounter
--- OUTSIDE RECORDS SUMMARY | 2024-06-10 07:14 | XMS_ITS | Encounter Summary ---
Author Organization [facility] Address [address] [place] [address] Care Team Providers Care Channel Marketing Manager Name Role Phone Jean Munoz MD Primary Care Provider Manny Rizzo MD Unavailable Reason for Visit * Reason Onset Date Comments Medications Refill 04/30/2020 Encounter Details Date Type Department Care Team (Late st Contact Info) Description 04/30/2020 Refill [facility] Sleep Program - [address] [address] Bassam Euceda MD [address] [facility]. Level [address] [place] [phone] Medications Refill Social History Tobacco Use Types [...] by mouth in the morning. 60 Tab 05/09/2020 05/23/2020 methylphenidate HCl (RITALIN;METHYLIN) 10 mg tablet Take one tab in the afternoon for narcolepsy. 30 Tab 05/09/2020 05/23/2020 documented in this encounter Miscellaneous Notes * Telephone Encounter - Corrina Ac RN - 04/30/2020 1022 EDT Last visit with on 03/27/20. Refill requests for methylphenidate 20 mg and 10 mg. The [place] Prescription Monitoring System query has been completed per the following requirement(s): Annual Verification. Spoke with pt, per , no extra dose of Ritalin. Reviewed this month's refill plan with her to ensure she understands- last filled on 04/09, so due on 05/09. Pt stated she was calling for a refills on ritalins when she was low on another pain med to help her remember. Let her know that plan is not working as the dates do not match on her due dates. Pt verbalized understanding, nobarrier to learning. Called [facility] in [place], spoke with pharmacist, Esha and let her know Dr Martin stated no extra doses and not to fill early. Reviewed refill dates with her and confirmed they are correct. Pended orders to provider. * Telephone Encounter - Kavita Ochoa - 04/30/2020 1007 EDT PT called in for REFill Medication Refill Medication(s) Requested: methylphenidate HCl (RITALIN;METHYLIN) 20 mg tablet methylphenidate HCl (RITALIN;METHYLIN) 10 mg tablet Pharmacy (reconcile pharmacy list): [facility] in [place] Is patient out of medication? NO:[id number]} Picking up/mailing (location)/calling in/eprescribe? Pick yp 30 day supply/90 day supply? 30day supply Kavita Ochoa 04/30/202010:07 documented in this encounter Plan of Treatment Upcoming Encounters Date Type Department Care Team (Late st Contact Info) Description 06/29/2024 14:15 EDT Office Visit [facility] 3 [place] [address] Jean Munoz MD [address] [place] [address] documented as of this encounter Visit Diagnoses Not on filedocumented in this encounter Discontinued Medications Medication Sig Discontinue Reason Start Date End Da te methylphenidate HCl (RITALIN;METHYLIN) 10 mg tablet Take one tab in the afternoon for narcolepsy. Reorder 04/07/2020 04/30/2020 methylphenidate HCl (RITALIN;METHYLIN) 20 mg tablet Take 2 tabs by mouth in the morning. Reorder 04/07/2020 04/30/2020 documented as of this encounter Care Teams Channel Marketing Manager Relationship Specialty Start Date End Date Jean Munoz MD [address] [place] [address] PCP - General 12/31/08 Manny Rizzo MD [address] [place] [phone] 04/20/10 documented as of this encounter
--- OUTSIDE RECORDS SUMMARY | 2024-06-10 07:14 | XMS_ITS | Encounter Summary ---
Author Organization [facility] Address [address] [place] [address] Care Team Providers Care Android Framework Developer Name Role Phone Jaen Munoz MD Primary Care Provider Manny Rizzo MD Unavailable Reason for Visit * Reason Onset Date Comments Medication Management 01/03/2020 Encounter Details Date Type Department Care Team (Late st Contact Info) Description 01/03/2020 Telephone [facility] 3 [place] [address] Jean Munoz MD [address] [place] [phone] Medication Management Social History Tobacco Use [...] NEEDED FOR SLEEP. DAILY MAX: 5 MG 28 Tab 2 01/03/2020 04/01/2020 HYDROcodone-acetaminophen (NORCO) 5-325 mg tabletIndications:Chronic pain syndrome,Chronic use of opiate for therapeutic purpose,Chronic low back pain, unspecified back pain laterality, unspecified whether sciatica present,Pain medication agreement Take 1-2 Tabs by mouth every 6 hours as needed for up to 28 days for Pain. Daily Max: 8 Tabs 112 Tab 01/06/2020 01/16/2020 documented in this encounter Miscellaneous Notes * Telephone Encounter - Gabby Beltran - 01/03/2020 1416 EDT Pt is rescheduled for televideo on 01/17/ * Telephone Encounter - John Dodd MD - 01/03/2020 1318 EDT Refill approved for one month, needs visit or discussion with PCP before next refill. John Dodd MD 01/03/2020 13:18 * Telephone Encounter - Yadira Mccauley RN - 01/03/2020 1101 EDT Images from the original note were not included. John Dodd MD Britel, Jennifer, RN; [facility] Rn ?? Please check VPMS and let me know if appropriate and when she would be due then I will refill and will address the scheduling issue. thanks The [place] Prescription Monitoring System query has been completed per the following requirement(s):on-call provider norco last filled for #112 (28 day supply) on 12/08 Ambien last filled for #28 on 12/05 * Telephone Encounter - Kavita Baxter - 01/03/2020 1035 EDT Reason for Call: Medication Management Summary/Symptoms: Patient was scheduled for tomorrow for a phone appt with Dr. Munoz. It was bumped due to him being out of the office. She says she was not notified. She will need a refill on herhydrocodone and zolpidem. Would like to know if she can get a refill. She does not want to see/talkto another provider other then Dr. Munoz. Onset and Duration? Appointment Offered? Yes Kavita Baxter 01/03/2020 10:35 documented in this encounter Plan of Treatment Upcoming Encounters Date Type Department Care Team (Late st Contact Info) Description 06/29/2024 14:15 EDT Office Visit [facility] [address] [place], [place] [phone] Jean Munoz MD [address] [place] [phone] documented as of this encounter Visit Diagnoses Diagnosis Chronic pain syndrome Chronic use of opiate for therapeutic purpose Chronic low back pain, unspecified back pain laterality, unspecified whether sciatica present Pain medication agreement Encounter for long-term (current) use of other medications Insomnia, unspecified type Screening for osteoporosis- Primary [...] for Pain. Daily Max: 8 Tabs Reorder 12/11/2019 01/03/2020 zolpidem (AMBIEN) 5 mg tabletIndications:Insomn ia, unspecified type TAKE 1 TABLET BY MOUTH NIGHTLY AT BEDTIME NEEDED FOR SLEEP. DAILY MAX: 5 MG Reorder 10/09/2019 01/03/2020 documented as of this encounter Care Teams Android Framework Developer Relationship Specialty Start Date End Date Jean Munoz MD [address] [place] [phone] PCP - General 12/31/08 Manny Rizzo MD [address] [place] [address] 04/20/10 documented as of this encounter
--- OUTSIDE RECORDS SUMMARY | 2024-06-10 07:14 | XMS_ITS | Encounter Summary ---
Author Organization [facility] Address [address] [place] [address] Care Team Providers Care Ballast Cleaning Machine Operator Name Role Phone Jean Munoz MD Primary Care Provider Manny Rizzo MD Unavailable Reason for Visit * Reason Onset Date Comments Medications Refill 05/14/2020 Encounter Details Date Type Department Care Team (Late st Contact Info) Description 05/14/2020 Refill [facility] 3 [place], [place] [phone] Jean Munoz MD [address] [place] [address] Medications Refill Social History Tobacco [...] * Telephone Encounter - Carmita [facility] - 05/15/2020 1032 EDT [facility] , see below * Telephone Encounter - Jean Munoz MD - 05/15/2020 0949 EDT She should have enough medication until next visit scheduled for 05/23, please let them know, thanks. * Telephone Encounter - Zuri Delaney - 05/14/2020 1645 EDT Medication(s) Requested: [email or web address] [facility] Pharmacy: [facility] Is patient out of medication? No Last Refill Date: 04/24/20 Last Visit Date with Ordering Provider: 05/01/20 Next Non-Acute Visit Date Scheduled with Care Team: Yes. Patient stating she will be out of this medication on the . Zuri Delaney 05/14/2020 16:45 documented in this encounter Plan of Treatment Upcoming Encounters Date Type Department Care Team (Late st Contact Info) Description 06/29/2024 14:15 EDT Office Visit [address] [address] Jean Munoz MD [address] [place] [address] documented as of this encounter [...] colon documented in this encounter Care Teams Ballast Cleaning Machine Operator Relationship Specialty Start Date End Date Jean Munoz MD [address] [place] [phone] PCP - General 12/31/08 Manny Rizzo MD [address] [place] [address] 04/20/10 documented as of this encounter
--- OUTSIDE RECORDS SUMMARY | 2024-06-10 07:14 | XMS_ITS | Encounter Summary ---
Author Organization [facility] Address [address] [place] [address] Care Team Providers Care Vehicle Mechanic Name Role Phone Jean Munoz MD Primary Care Provider Manny Rizzo MD Unavailable Afia Valle MD Unavailable [phone] Reason for Visit * Reason Onset Date Comments Appointment Related 03/21/2020 Encounter Details Date Type Department Care Team (Late st Contact Info) Description 03/21/2020 Telephone [facility] - [place] [address] [place], [place] [phone] Bassam Euceda MD [address] [facility]. Level [address] [place] [address] Appointment Related Social History Tobacco [...] * Telephone Encounter - Shaista Forde - 03/21/2020 1639 EDT Called pt to reschedule missed ZOOM appt 7.15.20 @ 1530 Meeting ID: [id number] Password: [id number] documented in this encounter Plan of Treatment Upcoming Encounters Date Type Department Care Team (Late st Contact Info) Description 06/29/2024 14:15 EDT Office Visit [facility] 3 [place], [place] [phone] Jean Munoz MD [address] [place] [phone] documented as of this encounter Visit Diagnoses Not on filedocumented in this encounter Care Teams Vehicle Mechanic Relationship Specialty Start Date End Date Jean Munoz MD [address] [place] [address] PCP - General 12/31/08 Manny Rizzo MD [address] [place] [address] 04/20/10 Afia Valle MD [address] [place] [address] 2 [place] [address] Care Team Radiation Oncology 07/02/21 documented as of this encounter
--- OUTSIDE RECORDS SUMMARY | 2024-06-10 07:14 | XMS_ITS | Encounter Summary ---
Author Organization [facility] Address [address] [place] [address] Care Team Providers Care Sql Tech Name Role Phone Jean Munoz MD Primary Care Provider Manny Rizzo MD Unavailable Encounter Details Date Type Department Care Team (Latest Contact Info) Description 11/24/2019 Travel Social History Tobacco Use Types Packs/Day [...] [facility] 3 [place] [address] Jean Munoz MD [address] [place] [address] documented as of this encounter Visit Diagnoses Not on filedocumented in this encounter Care Teams Sql Tech Relationship Specialty Start Date End Date Jean Munoz MD [address] [place] [address] PCP - General 12/31/08 Manny Rizzo MD [address] [place] [address] 04/20/10 documented as of this encounter
--- OUTSIDE RECORDS SUMMARY | 2024-06-10 07:14 | XMS_ITS | Encounter Summary ---
Author Organization [facility] Address [address] [place] [address] Care Team Providers Care Parquetry Layer Name Role Phone eJan Munoz MD Primary Care Provider Manny Rizzo MD Unavailable Reason for Visit * Reason Onset Date Comments Medications Refill 01/08/2020 Encounter Details Date Type Department Care Team (Late st Contact Info) Description 01/08/2020 Refill [facility] Sleep Program - [address] [address] Bassam Euceda MD [address] [facility]. Level [address] [place] [phone] Medications Refill Social History Tobacco Use Types [...] by mouth in the morning. 60 Tab 01/11/2020 02/06/2020 methylphenidate HCl (RITALIN;METHYLIN) 10 mg tablet Take one tab in the afternoon for narcolepsy. 30 Tab 01/11/2020 02/06/2020 documented in this encounter Miscellaneous Notes * Telephone Encounter - Corrina Ac RN - 01/08/2020 1514 EDT Pt last seen by on 02/13/19. Refill requests for both methylphenidate prescriptions. [facility] Prescription Monitoring System query has been completed per the following requirement(s): Annual Verification. Pended orders to , provider successfactors consultant. * Telephone Encounter - Shaista Forde - 01/08/2020 1410 EDT Medication Refill Medication(s) Requested: methylphenidate HCl (RITALIN;METHYLIN) 20 mg tablet - Take 2 tabs by mouth in the morning. methylphenidate HCl (RITALIN;METHYLIN) 10 mg tablet - Take one tab in the afternoon for narcolepsy. Pharmacy (reconcile pharmacy list): [id number] - [place], [place] - [address] Is patient out of medication? Kristi Forde 01/08/202014:11 documented in this encounter Plan of Treatment Upcoming Encounters Date Type Department Care Team (Late st Contact Info) Description 06/29/2024 14:15 EDT Office Visit [facility] [address] [place] [address] Jean Munoz MD [address] [place] [address] documented as of this encounter Visit Diagnoses Not on filedocumented in this encounter Discontinued Medications Medication Sig Discontinue Reason Start Date End Da te methylphenidate HCl (RITALIN;METHYLIN) 10 mg tablet Take one tab in the afternoon for narcolepsy. Reorder 12/14/2019 01/08/2020 methylphenidate HCl (RITALIN;METHYLIN) 20 mg tablet Take 2 tabs by mouth in the morning. Reorder 12/14/2019 01/08/2020 documented as of this encounter Care Teams Parquetry Layer Relationship Specialty Start Date End Date Jean Munoz MD [address] [place] [phone] PCP - General 12/31/08 Manny Rizzo MD [address] [place] [address] 04/20/10 documented as of this encounter
--- OUTSIDE RECORDS SUMMARY | 2024-06-10 07:14 | XMS_ITS | Encounter Summary ---
Author Organization [facility] Address [address] [place] [address] Care Team Providers Care Senior Designer Name Role Phone Jean Munoz MD Primary Care Provider Manny Rizzo MD Unavailable Reason for Visit * Reason Comments Knee Pain Left knee pain Pain * Consult (Routine/Next Available) - Order Cancelled Specialty Diagnoses / Procedures Referred By Alex weldon Referred To Contact Orthopedic Surgery Diagnoses Chronic pain of left knee Jean Munoz MD [address] [place] [address] [facility] Total Joint [address] [place] [address] Referral ID Status Reason Start Date Expiration Date Visits Requested Visits Authorized [id number] Order Cancelled Specialty Services Required 01/18/2020 1 1 Encounter Details Date Type Department Care Team (Late st Contact Info) Description 06/05/2020 14:30 EDT Office Visit [facility] Total [place] [address] Chavo Multani MD MSc FRCSC [address] [place] [phone] Chronic pain of left knee (Primary [...] as of this encounter Progress Notes * Chavo Multani MD - 06/05/2020 1430 EDT Liset Viera is a 59-year-old female, on disability secondary to COPD and chronic pain, who presents to orthopedics clinic today for left knee pain. She describes an accident in 2011 in which she tripped over a curb and fell directly onto her left knee. She immediately had 8/10 aching pain in her left knee which has persisted until today, getting progressively worse, especially at the medial aspect. The pain is worse with walking and improved with ice and heat. She says her left knee has been swollen since 2011, catches 3-4x per week, and gives 2-3x per week with a sensation of sudden hyperextension. She was seen [place] [address] Glynn who ordered an MRI, which revealed a torn meniscus in her left knee. She did not have surgery because she says Dr. Glynn believed her to be a poor surgical candidate secondary to her COPD. She did have 2x cortisone injections in 2013, 3-4 months apart,with only 1-2 days of relief at a time. She did 1 year of PT in 2012 with no improvement. She does not take NSAIDs due to allergies to toradol and ibuprofen but does take Tylenol 2000mg QID in addition to Vicodin for her chronic pain. She ambulates with a cane or walker but has not tried a brace. On ROS, in addition to right knee pain, she has back pain and shortness of breath. She denies fever, chills, chest pain, abdominal pain. In addition to her knee pain, Ms. Viera has a history of chronic pain secondary to degenerative disc disease for which she takes Vicodin 5mg QID. She had a R ankle fracture in 2009 with removal ofhardware and right calcaneal osteotomy with FDL to PTT transfer in September [address] Tilley. She also has COPD (on oxygen episodically for bouts of pneumonia, twice in the past 5 years), GERD, prediabetes (HbA1C 5.8 in September 2019), IBS, fibromyalgia, depression/anxiety, KATJA. She has a family history of esophageal cancer in her mother and lung cancer in her father. Her maternal grandmother had CAD and stroke. In addition to Vicodin and Tylenol, she takes doxycycline, omeprazole, albuterol, Advair, and Singulair. She does not take blood thinners. She has allergies to toradol (hives, throat swelling) and ibuprofen (hives). She quit smoking 10 years ago but has a 45 pack year smoking history. She drinks alcohol very occasionally. On exam, she is in no acute distress and has normal affect. She has neutral knee alignment and walks with a slight limp. She has no leg length discrepancy. She has medial joint line tenderness of theleft knee.Patellar grind test is negative. Her left knee ROM is 5 to 135. Left hip flexion is 105, internal rotation 15, external rotation 45 degrees. She has 2+ DP and PT pulses with 5/5 plantarflexion and dorsiflexion. She has normal sensation throughout both feet. Imaging: X-ray of the left knee demonstrates moderate osteoarthritis of the medial compartment. Assessment and Plan: Liset Viera is a 59-year-old female with a complex medical history, including significant COPD who presents today with left knee pain, likely secondary to moderate osteoarthritis in the joint. Today we discussed PT and weight loss as the first two steps in improving her left knee pain. She can also consider a brace in the future if pain persists. We might also consider cortisone injection in the future. All questions were answered and she was pleased with her interaction today. She will see me back for follow-up if her symptoms do not improve or get worse. documented in this encounter Plan of Treatment Upcoming Encounters Date Type Department Care Team (Late st Contact Info) Description 06/29/2024 14:15 EDT Office Visit [facility] [address] [place] [address] Jean Munoz MD [address] [place] [phone] documented as of this encounter Visit Diagnoses Diagnosis Chronic pain of left knee- Primary Pain in joint, lower leg Screening for osteoporosis- Primary Special screening for osteoporosis Primary narcolepsy without cataplexy Chronic pain syndrome Chronic low back pain Lumbago Chronic use of opiate for therapeutic purpose Pain medication agreement Encounter for long-term (current) use of other medications Screen for colon cancer Special screening for malignant neoplasms, colon documented in this encounter Care Teams Senior Designer Relationship Specialty Start Date End Date Jean Munoz MD [address] [place] [address] PCP - General 12/31/08 Manny Rizzo MD [address] [place] [phone] 04/20/10 documented as of this encounter
--- OUTSIDE RECORDS SUMMARY | 2024-06-10 07:14 | XMS_ITS | Encounter Summary ---
Author Organization [facility] Address [address] [place] [address] Care Team Providers Care Real Estate Associate Name Role Phone Jean Munoz MD Primary Care Provider Manny Rizzo MD Unavailable Afia Valle MD Unavailable [phone] Encounter Details Date Type Department Care Team (Late st Contact Info) Description 04/22/2020 Telephone [facility] Sleep Program - [address] [place] [address] Bassam Euceda MD [address] [facility]. [address] [place] [address] Social History Tobacco Use Types [...] Miscellaneous Notes * Telephone Encounter - Kavita Ochoa - 04/22/2020 0825 EDT Called PT to schedule 6 MO FUR. PT was not avail. Entered recall reminder. documented in this encounter Plan of Treatment Upcoming Encounters Date Type Department Care Team (Late st Contact Info) Description 06/29/2024 14:15 EDT Office Visit [facility] [address] [place], [place] [phone] Jean Munoz MD [address] [place] [address] documented as of this encounter Visit Diagnoses Not on filedocumented in this encounter Care Teams Real Estate Associate Relationship Specialty Start Date End Date Jean Munoz MD [address] [place] [address] PCP - General 12/31/08 Manny Rizzo MD [facility] [place] [phone] 04/20/10 Afia Valle MD [address] [facility] 2 [place] [phone] Care Team Radiation Oncology 07/02/21 documented as of this encounter
--- OUTSIDE RECORDS SUMMARY | 2024-06-10 07:15 | XMS_ITS | Encounter Summary ---
Author Organization [facility] Address [address] [place] [address] Care Team Providers Care Cryptologic Supervisor Name Role Phone Jean Munoz MD Primary Care Provider Manny Rizzo MD Unavailable Reason for Visit * Radiology Services (Routine) - Closed Specialty Diagnoses / Procedures [facility] Referred To Contact Diagnoses Encounter for screening mammogram for malignant neoplasm of breast Procedures MA BREAST SCREENING ROYCE BILATERAL Jean Munoz MD [address] [place] [phone] Referral ID Status Reason Start Date Expiration Date Visits Re quested Visits Authorized [id number] Closed 08/07/2019 1 1 Encounter Details Date Type Department Care Team (Latest Contact Info) Description 11/24/2019 12:47 EDT - 11/24/2019 23:59 EDT Hospital Encounter [facility] Breast Imaging - [address] [address] Discharge Disposition: Home or Self Care Social [...] Concentration - - Weight - - Height 162.6 cm (5' 4) 11/24/2019 1308 EDT Body Mass Index - - documented in [...] times daily as needed for Constipation. 09/24/2010 amLODIPine (NORVASC) 5 mg tabletIndications:Migra ine without status migrainosus, not intractable, unspecified migraine type Take 1 Tab by mouth daily. 90 Tab 3 09/20/2019 01/18/2020 blood glucose (BLOOD GLUCOSE TEST) test stripsIndications:Impai red glucose tolerance 1 Strip by misc (non-drug; combo route) route 2 times daily. 100 Each 1 07/05/2018 07/08/2021 busPIRone (BUSPAR) 15 mg tabletIndications:Anxie ty Take 1 Tab by mouth 3 times daily. For anxiety 270 Tab 3 08/30/2019 01/18/2020 Ciclesonide 50 mcg spray,non-aerosolIndica tions:Seasonal allergic rhinitis, unspecified trigger 1 spray each nostril daily 37.5 g 5 03/03/2018 08/04/2023 cycloSPORINE (RESTASIS) 0.05 % ophthalmic emulsion Place 1 drop into both eyes 2 times daily. 1 vial 11/11/2018 10/06/2023 doxycycline (VIBRA-TABS) 100 mg tablet Take 1 Tab by mouth daily. For rosacea 90 Tab 3 10/16/2019 10/21/2020 DULoxetine (CYMBALTA) 30 mg delayed release capsuleIndications:Anxi ety,Major depressive disorder, recurrent, severe without psychotic features (HCC-CMS) Take 1 Cap by mouth daily. 90 Each 3 10/09/2019 12/11/2019 fexofenadine (JUDITH) 180 mg tabletIndications:Aller gic rhinitis, [...] Pain. Daily Max: 8 Tabs 112 Tab 12/11/2019 01/03/2020 HYDROcodone-acetaminoph en (NORCO) 5-325 mg tabletIndications:Chron ic pain syndrome,Chronic use of opiate for therapeutic purpose,Chronic low back pain, unspecified back pain laterality, unspecified whether sciatica present,Pain medication agreement Take 1-2 Tabs by mouth every 6 hours as needed for up to 28 days for Pain. Daily Max: 8 Tabs 112 Tab 11/13/2019 01/16/2020 HYDROcodone-acetaminoph en (NORCO) 5-325 mg tabletIndications:Chron ic pain syndrome,Chronic use of opiate for therapeutic purpose,Chronic low back pain, unspecified back pain laterality, unspecified whether sciatica present,Pain medication agreement Take 1-2 Tabs by mouth every 6 hours as needed for up to 28 days for Pain. Daily Max: 8 Tabs 112 Tab 10/16/2019 01/16/2020 hydroxypropyl methylcellulose (ISOPTO TEARS) 0.5 % ophthalmic solution Place 1 Drop into both eyes 5 times daily. 12/10/2010 10/06/2023 ipratropium-albuterol (DUONEB) 0.5 mg-3 mg(2.5 mg base)/3 mL nebulizer solutionIndications:Jarquin lobular emphysema (HCC-CMS) Take 3 mL by nebulization every 4 hours as needed for Wheezing. 3 mL 3 08/30/2019 11/23/2022 lancetsIndications:Impa ired glucose tolerance Brand:[email or web address], tests 2 times daily 100 Each 2 07/05/2018 07/08/2021 levalbuterol (XOPENEX HFA) 45 mcg/actuation inhalerIndications:Panl obular emphysema (HCC-CMS) Inhale 2 Puffs as directed every 4 hours as needed for Wheezing. For shortness of breath 3 Inhaler 5 08/30/2019 09/09/2020 methocarbamoL (ROBAXIN) 500 mg tabletIndications:Chron ic pain syndrome take 2 tablets by mouth at bedtime 60 Tab 11/13/2019 12/06/2019 methylphenidate HCl (RITALIN;METHYLIN) 10 mg tablet Take one tab in the afternoon for narcolepsy. 30 Tab 11/16/2019 12/11/2019 methylphenidate HCl (RITALIN;METHYLIN) 20 mg tablet Take 2 tabs by mouth in the morning. 60 Tab 11/16/2019 12/11/2019 montelukast (SINGULAIR) 10 mg tabletIndications:Aller gic rhinitis, [...] FOR NAUSEA 30 Tab 5 07/14/2019 10/23/2020 polyethylene glycol (GOLYTELY;NULYTELY) 236-22.74-6.74 -5.86 gram suspensionIndications:Rain bolton for colon cancer Instructions mailed once procedure scheduled. Questions: [facility]: [phone] or GI Doctor's Office. 4000 mL 07/18/2019 01/14/2020 pregabalin (LYRICA) 300 mg capsuleIndications:Pole Tester majo low back pain TAKE ONE CAPSULE BY MOUTH TWICE DAILY 60 Cap 4 08/11/2019 01/11/2020 promethazine (PHENERGAN) 25 mg tabletIndications:Nause a TAKE ONE TABLET BY MOUTH EVERY SIX HOURS NEEDED FOR NAUSEA 25 Tab 5 07/14/2019 07/03/2020 roflumilast (DALIRESP) 500 mcg tabletIndications:Chron ic obstructive pulmonary disease, unspecified COPD type ([facility]-CMS) Take 1 Tab by mouth daily. 90 Tab 2 12/14/2019 09/02/2020 rOPINIRole (REQUIP) 2 mg tabletIndications:Restl ess legs syndrome TAKE 1 TABLET BY MOUTH NIGHTLY AT BEDTIME 90 Tab 3 07/24/2019 07/07/2021 sumatriptan (IMITREX) 50 mg tabletIndications:Migra ine without status migrainosus, not intractable, unspecified migraine type TAKE ONE TABLET BY MOUTH NEEDED for migraine. daily max: 2 tabs 9 Tab 2 09/09/2019 12/04/2019 tamsulosin (FLOMAX) 0.4 mg capsuleIndications:Hesi tancy Take 1 Cap by mouth daily. 90 Cap 3 08/30/2019 01/27/2023 tiotropium bromide (SPIRIVA RESPIMAT) 1.25 mcg/actuation inhalerIndications:Pole Tester majo obstructive pulmonary disease, unspecified COPD type (HCC-CMS) INHALE TWO PUFFS (2.5 mcg) daily as directed 12 g 3 02/07/2019 02/01/2020 zolpidem (AMBIEN) 5 mg tabletIndications:Insom yesi, unspecified type TAKE 1 TABLET BY MOUTH NIGHTLY AT BEDTIME NEEDED FOR SLEEP. DAILY MAX: 5 MG 28 Tab 2 10/09/2019 01/03/2020 documented as of this encounter Discharge Disposition Disposition Code Departure Means Destination Home or Self Care documented in this encounter Plan of Treatment Upcoming Encounters Date Type Department Care Team (Late st Contact Info) Description 06/29/2024 14:15 EDT Office Visit [facility] [address] [place] [address] Jean Munoz MD [address] [place] [address] documented as of this encounter Procedures Procedure Name Priority Date/Time Associated Diagnosis Comments MA BREAST SCREENING ROYCE BILATERAL Routine 11/24/2019 13:14 EDT Encounter for screening mammogram for malignant neoplasm of breast documented in this encounter Results * MA BREAST SCREENING ROYCE BILATERAL (11/24/2019 [...] findings. Jean Munoz MD IMG MAMMOGRAPHY ORDERABLES documented in this encounter Visit Diagnoses Not on filedocumented in this encounter Care Teams Cryptologic Supervisor Relationship Specialty Start Date End Date Jean Munoz MD [address] [place] [phone] PCP - General 12/31/08 Manny Rizzo MD [address] [place] [phone] 04/20/10 documented as of this encounter
--- OUTSIDE RECORDS SUMMARY | 2024-06-10 07:15 | XMS_ITS | Encounter Summary ---
Author Organization [facility] Address [address] [place] [address] Care Team Providers Care Flash Welder Name Role Phone Jean Munoz MD Primary Care Provider Manny Rizzo MD Unavailable Reason for Visit * Reason Onset Date Comments Letter for School/Work 10/03/2019 Encounter Details Date Type Department Care Team (Late st Contact Info) Description 10/03/2019 Telephone [facility] [address] [place] [address] Jean Munoz MD [address] [place] [phone] Letter for School/Work Social History Tobacco Use Types Packs/Day Years [...] * Telephone Encounter - Zuri Delaney - 10/03/2019 1043 EST Reason for call: Letter Reason for letter? Electric will be shut off tomorrow. Looking for an override Where should we send the letter? [employer] power Date letter is needed by: end of today Letter pended? Yes documented in this encounter Plan of Treatment Upcoming Encounters Date Type Department Care Team (Late st Contact Info) Description 06/29/2024 14:15 EDT Office Visit [facility] [address] [place], [place] [phone] Jean Munoz MD [address] [place] [address] documented as of this encounter Visit Diagnoses Not on filedocumented in this encounter Care Teams Flash Welder Relationship Specialty Start Date End Date Jean Munoz MD [address] [place] [phone] PCP - General 12/31/08 Manny Rizzo MD [address] [place] [address] 04/20/10 documented as of this encounter
--- OUTSIDE RECORDS SUMMARY | 2024-06-10 07:15 | XMS_ITS | Encounter Summary ---
Author Organization [facility] Address [address] [place] [address] Care Team Providers Care International Logistics Coordinator Name Role Phone Jean Munoz MD Primary Care Provider Manny Rizzo MD Unavailable Reason for Visit * Reason Onset Date Comments Follow-up 10/24/2019 [facility] follow up c all Encounter Details Date Type Department Care Team (Late st Contact Info) Description 10/24/2019 Telephone [facility] Medicine [facility] [address] [place] [address] Jean Munoz MD [address] [place] [address] Follow-up ([facility] follow up call ) Social History Tobacco Use Types Packs/Day [...] Telephone Encounter - Kaitlyn Montero LPN - 10/24/2019 0958 EST We see [facility] and collapse on 10/18/2019. How are you feeling/symptoms improving? Yes. Was having dizzy spells. at [facility] thought it was because of the Amlodipine causing hypotension. Stopped taking the medication and is feeling better. Do you have any questions? No: Can we schedule a follow up visit? No: Patient declined follow up appointment. Has appointment withRL in December. Encouraged her to call back if she decides she needs a sooner appointment. KAITLYN MONTERO LPN documented in this encounter Plan of Treatment Upcoming Encounters Date Type Department Care Team (Late st Contact Info) Description 06/29/2024 14:15 EDT Office Visit [facility] [address] [place] [address] Jean Munoz MD [address] [place] [address] documented as of this encounter Visit Diagnoses Not on filedocumented in this encounter Care Teams International Logistics Coordinator Relationship Specialty Start Date End Date Jean Munoz MD [address] [place] [phone] PCP - General 12/31/08 Manny Rizzo MD [address] [place] [address] 04/20/10 documented as of this encounter
--- OUTSIDE RECORDS SUMMARY | 2024-06-10 07:15 | XMS_ITS | Encounter Summary ---
Author Organization [facility] Address [address] [place] [address] Care Team Providers Care Pelt Inspector Name Role Phone Jean Munoz MD Primary Care Provider Manny Rizzo MD Unavailable Reason for Visit * Reason Comments Other Encounter Details Date Type Department Care Team (Late st Contact Info) Description 06/21/2019 [facility] [address] [place] [address] Jean Munoz MD [address] [place] [phone] Other Social History Tobacco Use Types [...] Telephone Encounter - Yadira Mccauley RN - 06/21/2019 0952 EDT Medication(s) Requested: Amlodipine 5 [facility]erred [facility]acy: [facility] Is patient out of medication? Unknown Last Refill Date: 06/20/19 Yadira Mccauley RN 06/21/2019 9:52 documented in this encounter Plan of Treatment Upcoming Encounters Date Type Department Care Team (Late st Contact Info) Description 06/29/2024 14:15 EDT Office Visit [address] [address] Jean Munoz MD [address] [place] [phone] documented as of this encounter Visit [...] colon documented in this encounter Care Teams Pelt Inspector Relationship Specialty Start Date End Date Jean Munoz MD [address] [place] [phone] PCP - General 12/31/08 Manny Rizzo MD [address] [place] [phone] 04/20/10 documented as of this encounter
--- OUTSIDE RECORDS SUMMARY | 2024-06-10 07:15 | XMS_ITS | Encounter Summary ---
Author Organization [facility] Address [address] [place] [address] Care Team Providers Care Drill Runner Name Role Phone Jean Munoz MD Primary Care Provider Manny Rizzo MD Unavailable Afia Valle MD Unavailable [phone] SaloJesi shanks PACKAGE DELIVERY DRIVER Unavailable SaloJesi shanks E PACKAGE DELIVERY DRIVER Unavailable Reason for Visit * Reason Comments Other Encounter Details Date Type Department Care Team (Late st Contact Info) Description [facility] [address] [place], [place] [id number] Herminia Wetzel MD [address] [place] [address] Other Social History Tobacco Use [...] FOR NAUSEA 30 Tab 5 07/14/2019 10/23/2020 promethazine (PHENERGAN) 25 mg tabletIndications:Nausea TAKE ONE TABLET BY MOUTH EVERY SIX HOURS NEEDED FOR NAUSEA 25 Tab 5 07/14/2019 07/03/2020 documented in this encounter Miscellaneous Notes * Telephone Encounter - Jean Munoz MD - 07/14/2019 1015 EDT escript done, please notify patient, thanks * Telephone Encounter - Abdifatah Blake - 07/14/2019 0841 EDT Medication(s) Requested: Ondansetron 4mg, promethazine 25mg [facility] out [facility]? Unknown Last Refill Date: 04/28/19, Last Visit Date with Ordering Provider: 04/25/19 Next Non-Acute Visit Date Scheduled with Care Team: Yes. 07/18/19 ABDIFATAH BLAKE RN 07/14/2019 8:41 documented in this encounter Plan of Treatment Upcoming Encounters Date Type Department Care Team (Late st Contact Info) Description 06/29/2024 14:15 EDT Office Visit [facility] [address] [place] [address] Jean Munoz MD [address] [place] [address] documented as of this encounter [...] Da te promethazine (PHENERGAN) 25 mg tabletIndications:Nausea Take 1 Tab by mouth every 6 hours as needed for Nausea. Reorder 04/28/2019 07/13/2019 ondansetron (ZOFRAN) 4 mg tabletIndications:Nausea Take 1 Tab by mouth daily as needed for Nausea. Reorder 04/28/2019 07/13/2019 documented as of this encounter Additional Health Concerns Infection Onset Date Last Indicated Resolved Time R/O COVID-19 05/15/2022 05/15/2022 05/20/2022 22:1 6 EDT R/O COVID-19 11/14/2022 11/14/2022 11/14/2022 19:1 6 EST documented as of this encounter Care Teams Drill Runner Relationship Specialty Start Date End Date Jean Munoz MD [address] [place] [address] PCP - General 12/31/08 Manny Rizzo MD [address] [place] [phone] 04/20/10 Afia Valle MD [address] [place] [address], [facility], [address] [place] [address] MD Care Team Radiation Oncology 07/02/21 Jesi Leong PACKAGE DELIVERY DRIVER [address] [place] [address] Manager Company 12/24/21 09/20/22 Jesi Leong PACKAGE DELIVERY DRIVER [address] [place] [address] Behavioral Health Manager CompanyCommunity Resource Officer Care 10/19/22 01/23/24 documented as of this encounter
--- OUTSIDE RECORDS SUMMARY | 2024-06-10 07:15 | XMS_ITS | Encounter Summary ---
Author Organization [facility] Address [address] [place] [address] Care Team Providers Care Police Manager Name Role Phone Jean Munoz MD Primary Care Provider Manny Rizzo MD Unavailable Reason for Referral * Referral (Routine) - Closed Specialty Diagnoses / Procedures Referred By Contact Referred To Contact Gastroenterology and Hepatology Diagnoses Screen for colon cancer Procedures COLONOSCOPY REQUEST Jean Munoz MD [address] [place] [phone] [facility] [address] [place] [address] Referral ID Status Reason Start Date Expiration Date Visits Re quested Visits Authorized [id number] Closed 07/18/2019 1 1 * Consult (Other (Specify in Question)) - New Request Specialty Diagnoses / Procedures Referred By [facility] t Referred To Contact Sleep Medicine Diagnoses Primary narcolepsy without cataplexy Insomnia, unspecified type Jean Munoz MD [address] [place] [phone] [facility] [address] [place] [address] Referral ID Status Reason Start Date Expiration Date Visits Requested Visits Authorized [id number] New Request Specialty Services Required 07/18/2019 1 1 Question Answer Reason for Request: request second opinion on narcolepsy per psychiatry/patient request (not Jordi), 1 month Reason for Visit * Reason Comments Chronic Pain Encounter Details Date Type Department Care Team (Late st Contact Info) Description 07/18/2019 13:30 EST Office Visit [facility] [address] [place] [address] Jean Munoz MD [address] [place] [phone] Chronic pain syndrome (Primary Dx); Chronic low back pain, unspecified back pain laterality, unspecified whether sciatica present; Chronic use of opiate for therapeutic purpose; Pain medication agreement; Severe major depression without psychotic features (HCC-CMS); Anxiety; Panlobular emphysema (HCC-CMS); Obesity (BMI 30-39.9); Primary narcolepsy without cataplexy; Insomnia, unspecified type; Need for influenza vaccination; Screen for colon cancer; Screening for breast cancer; Encounter for screening for lung cancer Social History Tobacco Use Types Packs/Day [...] Sign Reading Time Taken Comments Blood Pressure 126/80 07/18/2019 1325 EST Pulse 72 07/18/2019 1325 EST Temperature 36.6 ??C (97.8 ??F) 07/18/2019 1325 EST Respiratory Rate 16 07/18/2019 1325 EST Oxygen Saturation - - Inhaled Oxygen Concentration - - Weight 84.4 kg (186 lb) 07/18/2019 1325 EST Height - - Body Mass Index 31.93 02/14/2019 1318 EDT documented in this encounter Functional Status [...] this encounter Patient Instructions * Patient Instructions* Kaitlyn Montero LPN - 07/18/2019 13:30 EST Please call the following number to schedule your routine mammogram. [phone] documented in this encounter Ordered Prescriptions Prescription Sig Dispensed Refills Start Date End Da te polyethylene glycol (GOLYTELY;NULYTELY) 236-22.74-6.74 -5.86 gram suspensionIndications:Rain bolton for colon cancer Instructions mailed once procedure scheduled. Questions: [facility]: [phone] or GI Doctor's Office. 4000 mL 07/18/2019 01/14/2020 busPIRone (BUSPAR) 10 mg tabletIndications:Anxie ty Take 1 Tab by mouth 3 times daily. 90 Tab 2 07/18/2019 08/30/2019 venlafaxine (EFFEXOR-XR) 37.5 mg XR capsuleIndications:Pain medication agreement,Severe major depression without psychotic features (HCC-CMS) Take 1 Cap by mouth daily. 30 Cap 2 07/18/2019 08/30/2019 HYDROcodone-acetaminoph en (NORCO) 5-325 mg tabletIndications:Chron ic pain syndrome,Chronic use of opiate for therapeutic purpose,Chronic low back pain, unspecified back pain laterality, unspecified whether sciatica present,Pain medication agreement Take 1-2 Tabs by mouth every 6 hours as needed for up to 28 days for Pain. Daily Max: 8 Tabs 112 Tab 07/24/2019 10/09/2019 HYDROcodone-acetaminoph en (NORCO) 5-325 mg tabletIndications:Chron ic pain syndrome,Chronic use of opiate for therapeutic purpose,Chronic low back pain, unspecified back pain laterality, unspecified whether sciatica present,Pain medication agreement Take 1-2 Tabs by mouth every 6 hours as needed for up to 28 days for Pain. Daily Max: 8 Tabs 112 Tab 08/21/2019 10/09/2019 HYDROcodone-acetaminoph en (NORCO) 5-325 mg tabletIndications:Chron ic pain syndrome,Chronic use of opiate for therapeutic purpose,Chronic low back pain, unspecified back pain laterality, unspecified whether sciatica present,Pain medication agreement Take 1-2 Tabs by mouth every 6 hours as needed for up to 28 days for Pain. Daily Max: 8 Tabs 112 Tab 09/18/2019 10/09/2019 documented in this encounter Progress Notes * Jean Munoz MD - 07/18/2019 1330 EST Subjective: Patient ID: Liset Viera is an 58 y.o. female. Chief Complaint Patient presents with ??? Chronic Pain HPI Liset is a 58-year-old female here for follow-up of chronic pain. Accompanied by her son. Main concern is depression. Feels that medication is not helping. She was previous now on sertraline 100 mg. Dose was increased to 2 tablets daily previously but she ran out about 2 weeks ago. She did not have significant symptoms of discontinuation following this. She is interested in trying Effexor instead. We reviewed psychiatry consultation with Dr. López Recommendations reviewed. She wasdissatisfied with the visit but is aware that trial of Effexor and increase in dose of BuSpar were recommended. She has not had neurology follow-up regarding her treatment for narcolepsy. Still has concern regarding anxiety. Not using benzodiazepine sedative although son has been advocating for trial of Klonopin. She also has chronic pain on hydrocodone and will be out on Wednesday. A VPMS([place] Prescription Monitoring System) report on this patient was printed and reviewed today to ensure the prescribing and dispensing of their medications is in accordance with the treatment plan. Functional assessment, misuse assessment, consent and scription agreement on file. MME 20. Last urine screen 04/25/2019. last Rx methylphenidate 06/29/19 #30 Last prescription for zolpidem written 06/22/2019 filled on 06/28/2019 #30. Last prescription for hydrocodone written 04/25/2019 filled on 06/24/2019 #112 Active problem list, past medical history, past surgical history, medications, allergies, family history and social history were reviewed. Due for Shingrix, mammogram, colonoscopy. ROS - See HPI Objective: BP 126/80 (BP Cuff Location: Left arm, Patient Position: Sitting, BP Cuff Sizes: Adult, regular) Pulse 72 Temp 36.6 ??C (97.8 ??F) (Tympanic) Resp 16 Wt 84.4 kg (186 lb) LMP 01/11/1987 BMI 31.93 kg/m?? Physical Exam Alert, NAD Assessment: See below Plan: Liset was seen today for chronic pain. Diagnoses and all orders for this visit: Chronic pain syndrome Chronic low back pain, [...] for Pain. Daily Max: 8 Tabs - venlafaxine (EFFEXOR-XR) 37.5 mg XR capsule; Take 1 Cap by mouth daily. Seems stable. Prescriptions done today. Recheck 12 weeks. Evaluation a conference of pain clinic ispenmercedes. Severe major depression without psychotic features (HCC-CMS) - venlafaxine (EFFEXOR-XR) 37.5 mg XR capsule; Take 1 Cap by mouth daily. We discussed starting Effexor in place of sertraline. Prescription done today. Side effects reviewed. Could titrate upwards before next visit if desired. Anxiety - busPIRone (BUSPAR) 10 mg tablet; Take 1 Tab by mouth 3 times daily. We also discussed increasing BuSpar but she would like to focus on starting Effexor instead. We will maintain current dose of BuSpar for now. Could increase to maximum 60 mg daily per psychiatry recommendation. Panlobular emphysema (HCC-CMS) Stable, denies recent difficulty with shortness of breath or cough Obesity (BMI 30-39.9) Briefly discussed diet and exercise, recheck next visit Primary narcolepsy without cataplexy Insomnia, unspecified type - AMB CONS/FOLLOW UP NEUROLOGY Due to concern regarding possible side effects of stimulant therapy, recommend follow-up with neurology. Patient states that Dr. Bacon is leaving so we will asked to see if she can see one of hercolleagues. Need for influenza vaccination - INFLUENZA VACCINE QUAD (FLULAVAL/FLUARIX/FLUZONE) PF 0.5 ML IM (6 MOS+) Screen for colon cancer - COLONOSCOPY REQUEST - polyethylene glycol (GOLYTELY;NULYTELY) 236-22.74-6.74 -5.86 gram suspension; Instructions mailedonce procedure scheduled. Questions: [facility]: [phone] or GI Doctor's Office. Screening for breast cancer Call for mammogram Encounter for screening for lung cancer - CT LOW DOSE LUNG CANCER ANNUAL SCREENING WO CONTRAST Patient Education Topic: as above Method: Verbal Taught to: Patient Barriers: None Outcomes: Verbalized understanding I spent a total of 40 minutes of face to face time with the patient today, and 40 minutes was spentcounseling the patient on the above issues. Return in about 12 weeks (around 10/10/2019) for SERA. * Kaitlyn Montero LPN - 07/18/2019 1330 EST Flu vaccine administered as ordered per Dr. Munoz. See immunization record for details. Patient advised to wait 10 minutes after administration for observation of possible adverse reaction. KAITLYN MONTERO LPN documented in this encounter Plan of Treatment Upcoming Encounters Date Type Department Care Team (Late st Contact Info) Description 06/29/2024 14:15 EDT Office Visit [facility] [address] [place] [address] Jean Munoz MD [address] [place] [phone] Scheduled Orders Name Type Priority Associated Diagnoses Orde r Schedule COLONOSCOPY REQUEST GI Routine Screen for colon cancer Ordered: 07/18/2019 Scheduled Referrals Name Type Priority Associated Diagnoses Orde r Schedule AMB CONS/FOLLOW UP NEUROLOGY Outpatient Referral Routine Primary narcolepsy without cataplexy Insomnia, unspecified type Ordered: 07/18/2019 documented as of this encounter Visit Diagnoses Diagnosis Chronic pain syndrome- Primary Chronic low back pain, unspecified back pain laterality, unspecified whether sciatica present Chronic use of opiate for therapeutic purpose Pain medication agreement Encounter for long-term (current) use of other medications Severe major depression without psychotic features (HCC-CMS) Major depressive disorder, single episode, severe, without mention of psychotic behavior Anxiety Anxiety state, unspecified Panlobular emphysema (HCC-CMS) Other emphysema Obesity (BMI 30-39.9) Obesity, unspecified Primary narcolepsy without cataplexy Insomnia, unspecified type Need for influenza vaccination Need for prophylactic vaccination and inoculation against influenza Screen for colon cancer Special screening for malignant neoplasms, colon Encounter for screening for lung cancer Screening [...] pain syndrome,Chronic use of opiate for therapeutic purpose Take 1-2 Tabs by mouth every 6 hours as needed for up to 28 days for Pain. Daily Max: 8 Tabs Reorder 06/26/2019 07/18/2019 HYDROcodone-acetaminophen (NORCO) 5-325 mg tabletIndications:Chronic pain syndrome,Chronic use of opiate for therapeutic purpose Take 1-2 Tabs by mouth every 6 hours as needed for up to 28 days for Pain. Daily Max: 8 Tabs Reorder 05/29/2019 07/18/2019 HYDROcodone-acetaminophen (NORCO) 5-325 mg tabletIndications:Chronic pain syndrome,Chronic use of opiate for therapeutic purpose Take 1-2 Tabs by mouth every 6 hours as needed for up to 28 days for Pain. Daily Max: 8 Tabs Reorder 05/01/2019 07/18/2019 busPIRone (BUSPAR) 10 mg tabletIndications:Anxiety Take 1 Tab by mouth 3 times daily. Reorder 04/25/2019 07/18/2019 documented as of this encounter Orders Immunization/Injection Count Last Ordered Date First Ordered Date INFLUENZA VACCINE QUAD (FLULAVAL/FLUARIX/FLUZONE) PF 0.5 ML IM (6 MOS+) 1 07/18/2019 documented in this encounter Care Teams Police Manager Relationship Specialty Start Date End Date Jean Munoz MD [address] [place] [phone] PCP - General 12/31/08 Manny Rizzo MD [address] [place] [address] 04/20/10 documented as of this encounter
--- OUTSIDE RECORDS SUMMARY | 2024-06-10 07:15 | XMS_ITS | Encounter Summary ---
Author Organization [facility] Address [address] [place] [address] Care Team Providers Care Tube Cutter Operator Name Role Phone Jean Munoz MD Primary Care Provider Manny Rizzo MD Unavailable Reason for Visit * Reason Comments Other Encounter Details Date Type Department Care Team (Late st Contact Info) Description 08/09/2019 [facility] [address] [place] [address] Jean Munoz MD [address] [place] [phone] Other Social History Tobacco Use Types [...] TWICE DAILY 60 Cap 4 08/11/2019 01/11/2020 documented in this encounter Miscellaneous Notes * Telephone Encounter - Liset Gonzalez RN - 08/11/2019 1037 EST Last rf of Lyrica 300 mg Take (1) cap pO BID #60 with 5 rf on 02/07/19 Last OV with RL 07/18/19 (chronic pain) Return in about 12 weeks (around 10/10/2019) for SERA. Next OV with RL 10/09/19 documented in this encounter Plan of Treatment Upcoming Encounters Date Type Department Care Team (Late st Contact Info) Description 06/29/2024 14:15 EDT Office Visit [facility] [address] [place], [place] [phone] Jean Munoz MD [address] [place] [address] documented as of this encounter [...] (LYRICA) 300 mg capsuleIndications:Chron ic low back pain, unspecified back pain laterality, with sciatica presence unspecified TAKE ONE CAPSULE BY MOUTH TWICE DAILY Reorder 02/07/2019 08/09/2019 documented as of this encounter Care Teams Tube Cutter Operator Relationship Specialty Start Date End Date Jean Munoz MD [address] [place] [phone] PCP - General 12/31/08 Manny Rizzo MD [address] [place] [phone] 04/20/10 documented as of this encounter
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
--- OUTSIDE RECORDS SUMMARY | 2024-06-10 07:15 | XMS_ITS | Encounter Summary ---
Author Organization [facility] Address [address] [place] [address] Care Team Providers Care Shoddy Mill Worker Name Role Phone Jean Munoz MD Primary Care Provider Manny Rizzo MD Unavailable Reason for Visit * Reason Comments Other Encounter Details Date Type Department Care Team (Late st Contact Info) Description 06/24/2019 [facility] [address] [place] [address] Siena Salazar MD [address] [place] [phone] Other Social History Tobacco Use Types [...] Telephone Encounter - Yadira Mccauley RN - 06/26/2019 1119 EDT Medication(s) Requested: ambien 5 [facility]acy[facility] Is patient out of medication? Unknown Last Refill Date: 06/22/19 Yadira Mccauley RN 06/26/2019 11:19 documented in this encounter Plan of Treatment Upcoming Encounters Date Type Department Care Team (Late st Contact Info) Description 06/29/2024 14:15 EDT Office Visit [facility] [address] [place] [address] Jean Munoz MD [address] [place] [phone] documented as of this encounter Visit [...] colon documented in this encounter Care Teams Shoddy Mill Worker Relationship Specialty Start Date End Date Jean Munoz MD [address] [place] [phone] PCP - General 12/31/08 Manny Rizzo MD [address] [place] [phone] 04/20/10 documented as of this encounter
--- OUTSIDE RECORDS SUMMARY | 2024-06-10 07:15 | XMS_ITS | Encounter Summary ---
Author Organization [facility] Address [address] [place] [address] Care Team Providers Care Barrel Coater Name Role Phone Jean Munoz MD Primary Care Provider Manny Rizzo MD Unavailable Afia Valle MD Unavailable Jesi Leong MANUFACTURING ACCOUNTANT Unavailable SaloJesi shanks MANUFACTURING ACCOUNTANT Unavailable Reason for Visit * Reason Comments Other Encounter Details Date Type Department Care Team (Late st Contact Info) Description 08/18/2019 Refill [facility] Family Medicine [facility] [address] [place], [place] [id number] Jean Munoz MD [address] [place] [phone] Other Social History Tobacco Use [...] Dispensed Refills Start Date End Da te methocarbamol (ROBAXIN) 500 mg tabletIndications:Chronic pain syndrome take 2 tablets by mouth at bedtime 60 Tab 1 08/18/2019 10/16/2019 documented in this encounter Miscellaneous Notes * Telephone Encounter - Esme Laboy RN - 08/18/2019 8130 EST Medication(s) Requested: robaxin [facility] Is patient out of medication? Unknown Last Refill Date: 05.26.19 60/2 should not be out yet Last Visit Date with Ordering Provider: 07.18.19 Next Non-Acute Visit Date Scheduled with Care Team: Yes.10.09.18 ESME LABOY RN 08/18/2019 15:49 documented in this encounter Plan of Treatment Upcoming Encounters Date Type Department Care Team (Late st Contact Info) Description 06/29/2024 14:15 EDT Office Visit [facility] Medicine [facility] [address] [place] [address] Jean Munoz MD [address] [place] [phone] documented as of this encounter Visit Diagnoses [...] Discontinue Reason Start Date End Da te methocarbamol (ROBAXIN) 500 mg tabletIndications:Chroni c pain syndrome take 2 tablets by mouth at bedtime Reorder 05/26/2019 08/18/2019 documented as of this encounter Additional Health Concerns Infection Onset Date Last Indicated Resolved Time R/O COVID-19 05/15/2022 05/15/2022 05/20/2022 22:1 6 EDT R/O COVID-19 11/14/2022 11/14/2022 11/14/2022 19:1 6 EST documented as of this encounter Care Teams Barrel Coater Relationship Specialty Start Date End Date Jean Munoz MD [address] [place] [phone] PCP - General 12/31/08 Manny Rizzo MD [address] [place] [phone] 04/20/10 Afia Valle MD [address] [place] [address] [address] [place] [phone] Care Team Radiation Oncology 07/02/21 Jesi Leong [facility] [address] [place] [phone] Graphic Design Manager 12/24/21 09/20/22 Jesi Leong MANUFACTURING ACCOUNTANT [address] [place] [phone] Behavioral Health Graphic Design ManagerMilitary Communications Specialist Care 10/19/22 01/23/24 documented as of this encounter
--- OUTSIDE RECORDS SUMMARY | 2024-06-10 07:15 | XMS_ITS | Encounter Summary ---
Author Organization [facility] Address [address] [place] [address] Care Team Providers Care Accelerator Technician Name Role Phone Jean Munoz MD Primary Care Provider Manny Rizzo MD Unavailable Reason for Visit * Reason Onset Date Comments DME 08/29/2019 nebulizer Encounter Details Date Type Department Care Team (Late st Contact Info) Description 08/29/2019 Telephone [facility] [address], [place] [phone] Jean Munoz MD [address] [place] [address] DME (nebulizer) Social History Tobacco Use Types Packs/Day Years [...] Telephone Encounter - Jean Munoz MD - 09/04/2019 1002 EST Order done * Telephone Encounter - Shell Ugalde - 09/01/2019 1212 EST Caroline is calling from [facility], rec'd DME for nebulizer; but it was signed on 08/28/19 and note is from 08/30/19. New DME needs to be faxed with date of 08/30/19 to include verbage of nebulizermachine and supplies; can be faxed to [phone]. Shell Ugalde 09/01/2019 12:14 * Telephone Encounter - Carmita Franklin - 08/30/2019 1036 EST DME and office notes faxed to [facility] * Telephone Encounter - Jean Munoz MD - 08/29/2019 1253 EST Order done * Telephone Encounter - Donis Stewart - 08/29/2019 0957 EST Reason for Call: DME (nebulizer) Pt [facility] that [facility] and she wanted the script to go [facility]. I called Johnna who said the pt would need to be seen and the provider would need to write up why patient needs nebulizer. Scheduled Pt for appt tomorrow. Johnna will need the visit note and pt's demographic sheet. Donis Stewart 08/29/2019 9:57 documented in this encounter Plan of Treatment Upcoming Encounters Date Type Department Care Team (Late st Contact Info) Description 06/29/2024 14:15 EDT Office Visit [facility] [address] [place] [address] Jean Munoz MD [address] [place] [address] documented as of this encounter [...] Orde red Date GENERIC DME ORDER 1 09/04/2019 documented in this encounter Care Teams Accelerator Technician Relationship Specialty Start Date End Date Jean Munoz MD [address] [place] [address] PCP - General 12/31/08 Manny Rizzo MD [address] [place] [phone] 04/20/10 documented as of this encounter
--- OUTSIDE RECORDS SUMMARY | 2024-06-10 07:15 | XMS_ITS | Encounter Summary ---
Author Organization [facility] Address [address] [place] [address] Care Team Providers Care Finish Patcher Name Role Phone Jean Munoz MD Primary Care Provider Manny Rizzo MD Unavailable Afia Valle MD Unavailable [phone] Jesi Leong CONVEYOR LINE BAKERY WORKER Unavailable [phone] SaloJesi shanks E CONVEYOR LINE BAKERY WORKER Unavailable Reason for Visit * Reason Comments Other Encounter Details Date Type Department Care Team (Late st Contact Info) Description [facility] [address], [place] [phone] Jean Munoz MD [address] [place] [address] Other Social History Tobacco Use [...] 2 tabs 9 Tab 2 09/09/2019 12/04/2019 documented in this encounter Miscellaneous Notes * Telephone Encounter - Jean Munoz MD - 09/09/2019 1154 EST escript done, please notify patient, thanks * Telephone Encounter - Lizz Mccauley RN - 09/07/2019 1506 EST Medication(s) Requested: imitrex 50 [facility]acy: [facility] Is patient out of medication? Unknown Last Refill Date: 05/05/19 Last Visit Date with Ordering Provider: 08/30/19 Next Non-Acute Visit Date Scheduled with Care Team: 10/09/19 LIZZ MCCAULEY RN 09/07/2019 15:06 documented in this encounter Plan of Treatment Upcoming Encounters Date Type Department Care Team (Late st Contact Info) Description 06/29/2024 14:15 EDT Office Visit [facility] [address] [place] [address] Jean Munoz MD [address] [place] [address] documented as of this encounter [...] needed for migraine. daily limit 2 tabs Reorder 05/05/2019 09/07/2019 documented as of this encounter Additional Health Concerns Infection Onset Date Last Indicated Resolved Time R/O COVID-19 05/15/2022 05/15/2022 05/20/2022 22:1 6 EDT R/O COVID-19 11/14/2022 11/14/2022 11/14/2022 19:1 6 EST documented as of this encounter Care Teams Finish Patcher Relationship Specialty Start Date End Date Jean Munoz MD [address] [place] [address] PCP - General 12/31/08 Manny Rizzo MD [facility] [place] [phone] 04/20/10 Afia Valle MD [address] [place] [address] [address] [place] [phone] MD Care Team Radiation Oncology 07/02/21 Jesi Leong [facility] [address] [place] [phone] Engraver Pantograph 12/24/21 09/20/22 Jesi Leong [facility] [address] [place] [phone] Behavioral Health Engraver PantographGrinder And Honer Operator [employer] 10/19/22 01/23/24 documented as of this encounter
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
--- OUTSIDE RECORDS SUMMARY | 2024-06-10 07:15 | XMS_ITS | Encounter Summary ---
Author Organization [facility] Address [address] [place] [address] Care Team Providers Care Medical Psychotherapist Name Role Phone Jean Munoz MD Primary Care Provider Manny Rizzo MD Unavailable Reason for Visit * Reason Comments Other Encounter Details Date Type Department Care Team (Late st Contact Info) Description 07/21/2019 Formerly [facility] [address] [place] [address] Jean Munoz MD [address] [place] [phone] Other Social History Tobacco Use Types [...] DAILY MAX: 5 MG 28 Tab 2 07/24/2019 10/09/2019 rOPINIRole (REQUIP) 2 mg tabletIndications:Restles s legs syndrome TAKE 1 TABLET BY MOUTH NIGHTLY AT BEDTIME 90 Tab 3 07/24/2019 07/07/2021 documented in this encounter Miscellaneous Notes * Telephone Encounter - Jean Munoz MD, MD - 07/24/2019 1148 EST Order done * Telephone Encounter - Esme Laboy RN - 07/24/2019 1125 EST Medication(s) Requested: RequipKary [facility] Is patient out of medication? Unknown Last Refill Date: 06.12.18/, 06.22.190 Last Visit Date with Ordering Provider: 07.18.19 Next Non-Acute Visit Date Scheduled with Care Team: Yes.127.20 ESME LABOY RN 07/24/2019 11:31 documented in this encounter Plan of Treatment Upcoming Encounters Date Type Department Care Team (Late st Contact Info) Description 06/29/2024 14:15 EDT Office Visit [address] [address] Jean Munoz MD [address] [place] [phone] documented as of this encounter Visit Diagnoses Diagnosis Insomnia, unspecified type Restless legs syndrome Restless legs syndrome (RLS) [...] TABLET BY MOUTH NIGHTLY AT BEDTIME Reorder 05/26/2018 07/21/2019 zolpidem (AMBIEN) 5 mg tabletIndications:Insomn ia, unspecified type TAKE 1 TABLET BY MOUTH NIGHTLY AT BEDTIME NEEDED FOR SLEEP. DAILY MAX: 5 MG Reorder 06/22/2019 07/24/2019 documented as of this encounter Care Teams Medical Psychotherapist Relationship Specialty Start Date End Date Jean Munoz MD [address] [place] [phone] PCP - General 12/31/08 Manny Rizzo MD [address] [place] [phone] 04/20/10 documented as of this encounter
--- OUTSIDE RECORDS SUMMARY | 2024-06-10 07:15 | XMS_ITS | Encounter Summary ---
Author Organization [facility] Address [address] [place] [address] Care Team Providers Care Scientific Software Engineer Name Role Phone Jean Munoz MD Primary Care Provider Manny Rizzo MD Unavailable Reason for Visit * Reason Onset Date Comments Prior Auth, Medication 06/19/2019 Encounter Details Date Type Department Care Team (Late st Contact Info) Description 06/19/[address] [address] Kaitlyn Montero LPN [address] [place] [address] Prior Auth, Medication Social History Tobacco Use [...] Telephone Encounter - Kaitlyn Montero LPN - 06/20/2019 1051 EDT Medication: Xopenex HFA inhaler Insurance Co: [place] Medicaid Approval # (if applicable): [id number] Approval dates: 06/19/2019-06/19/2020 Name of Pharmacy notified: [facility] * Telephone Encounter - Kaitlyn Montero LPN - 06/19/2019 1420 EDT PA sent to insurance ([place] Medicaid) for Xopenex inhaler. Waiting for response. Kaitlyn Montero LPN documented in this encounter Plan of Treatment Upcoming Encounters Date Type Department Care Team (Late st Contact Info) Description 06/29/2024 14:15 EDT Office Visit [facility] [address] [place] [address] Jean Munoz MD [address] [place] [phone] documented as of this encounter Visit Diagnoses Not on filedocumented in this encounter Care Teams Scientific Software Engineer Relationship Specialty Start Date End Date Jean Munoz MD [address] [place] [phone] PCP - General 12/31/08 Manny Rizzo MD [facility] [place] [address] 04/20/10 documented as of this encounter
--- OUTSIDE RECORDS SUMMARY | 2024-06-10 07:15 | XMS_ITS | Encounter Summary ---
Author Organization [facility] Address [address] [place] [address] Care Team Providers Care Emergency Medical Technician Basic Name Role Phone Jean Munoz MD Primary Care Provider Manny Rizzo MD Unavailable Encounter Details Date Type Department Care Team (Late st Contact Info) Description 10/09/2019 14:15 EST Phlebotomy Only [facility] [address] [place], [place] [phone] Batch Mixer, [facility] Impaired glucose tolerance (Primary Dx) Social History Tobacco Use Types [...] EDT Office Visit [facility] [address] [place] [address] Jean Munoz MD [address] [place] [phone] documented as of this encounter Procedures Procedure Name Priority Date/Time Associated Diagnosis Comments HEMOGLOBIN A1C Routine 10/09/2019 14:12 EST Impaired glucose tolerance documented in this encounter Results * (ABNORMAL) HEMOGLOBIN A1C (10/09/2019 14:12 EST) Hemoglobin A1c 5.8(H) <5.7 % 10/10/2019 8:[address] [facility] Comment: Glycemic Status References: Normal: ??<5.7% Pre-Diabetes: ??5.7% - 6.4% Diagnostic of Diabetes: ??> or = 6.5% (if confirmed) Goals for glycemic control in diabetics (ADA 2017): <7.0% target for non adults with diabetes. <7.5% target for children and adolescents with Type I Diabetes. More or less stringent targets may be appropriate for individual patients. Est Avg Glucose 120 mg/dL 0 8:[address] [facility] Comment: The eAG represents the A1c result expressed as average glucose in mg/dL. Blood VENOUS BLOOD / Unknown Venipuncture / Unknown 10/09/2019 14:12 EST 10/09/2019 14:12 EST Jean Munoz MD CHEMISTRY & BLO OD GAS ORDERABLES [facility] [address] [place] [address] documented in this encounter Visit Diagnoses Diagnosis Impaired glucose [...] colon documented in this encounter Care Teams Emergency Medical Technician Basic Relationship Specialty Start Date End Date Jean Munoz MD [address] [place] [phone] PCP - General 12/31/08 Manny Rizzo MD [address] [place] [phone] 04/20/10 documented as of this encounter
--- OUTSIDE RECORDS SUMMARY | 2024-06-10 07:15 | XMS_ITS | Encounter Summary ---
Author Organization [facility] Address [address] [place] [address] Care Team Providers Care Paving Contractor Name Role Phone Jean Munoz MD Primary Care Provider Manny Rizzo MD Unavailable Reason for Visit * Reason Comments Follow-up med check Chronic Pain back, knees, and dominik ulder Encounter Details Date Type Department Care Team (Late st Contact Info) Description 10/09/2019 13:15 EST Office Visit [facility] [address] [place] [address] Jean Munoz MD [address] [place] [phone] Muscle spasm (Primary Dx); Gastroenteritis; Chronic low back pain, unspecified back pain laterality, unspecified whether sciatica present; Chronic pain syndrome; Chronic use of opiate for therapeutic purpose; Pain medication agreement; Chronic obstructive pulmonary disease, unspecified COPD type (HCC-CMS); Panlobular emphysema (HCC-CMS); Major depressive disorder, recurrent, severe without psychotic features (HCC-CMS); Anxiety; Obesity (BMI 30-39.9); Impaired glucose tolerance; Insomnia, unspecified type; Migraine without status migrainosus, not intractable, unspecified migraine type; Screen for colon cancer Social History Tobacco [...] Sign Reading Time Taken Comments Blood Pressure 126/72 10/09/2019 1316 EST Pulse 92 10/09/2019 1316 EST Temperature - - Respiratory Rate 18 10/09/2019 1316 EST Oxygen Saturation - - Inhaled Oxygen Concentration - - Weight 82.6 kg (182 lb) 10/09/2019 1316 EST Height 162.6 cm (5' 4.02) 10/09/2019 1316 EST Body Mass Index 31.22 10/09/2019 1316 EST documented in this encounter Functional Status [...] 5 MG 28 Tab 2 10/09/2019 01/03/2020 roflumilast (DALIRESP) 500 mcg tabletIndications:Chronic obstructive pulmonary disease, unspecified COPD type (HCC-CMS) Take 1 Tab by mouth daily. 90 Tab 2 12/14/2019 09/02/2020 HYDROcodone-acetaminophen (NORCO) 5-325 mg tabletIndications:Chronic pain syndrome,Chronic use of opiate for therapeutic purpose,Chronic low back pain, unspecified back pain laterality, unspecified whether sciatica present,Pain medication agreement Take 1-2 Tabs by mouth every 6 hours as needed for up to 28 days for Pain. Daily Max: 8 Tabs 112 Tab 10/16/2019 01/16/2020 HYDROcodone-acetaminophen (NORCO) 5-325 mg tabletIndications:Chronic pain syndrome,Chronic use of opiate for therapeutic purpose,Chronic low back pain, unspecified back pain laterality, unspecified whether sciatica present,Pain medication agreement Take 1-2 Tabs by mouth every 6 hours as needed for up to 28 days for Pain. Daily Max: 8 Tabs 112 Tab 11/13/2019 01/16/2020 HYDROcodone-acetaminophen (NORCO) 5-325 mg tabletIndications:Chronic pain syndrome,Chronic use of opiate for therapeutic purpose,Chronic low back pain, unspecified back pain laterality, unspecified whether sciatica present,Pain medication agreement Take 1-2 Tabs by mouth every 6 hours as needed for up to 28 days for Pain. Daily Max: 8 Tabs 112 Tab 12/11/2019 01/03/2020 DULoxetine (CYMBALTA) 30 mg delayed release capsuleIndications:Anxiet y,Major depressive disorder, recurrent, severe without psychotic features (HCC-CMS) Take 1 Cap by mouth daily. 90 Each 3 10/09/2019 12/11/2019 documented in this encounter Progress Notes * Jean Munoz MD - 10/09/2019 1315 EST Subjective: Patient ID: Liset Viera is an 58 y.o. female here for followup , here with son. Chief Complaint Patient presents with ??? Follow-up med check ??? Chronic Pain back, knees, and shoulder HPI Has had muscle spasm under right shoulder blade recently. Methocarbamol does help. Sick in bed for several days with GI symptoms including nausea, vomiting, diarrhea, has improved, using Zofran, Imodium, son has had similar symptoms. Also narcolepsy/insomnia. Followed by Dr Bacon. Had recent episode recently where was observed to be sleeping in reclined but was not sleeping per patient. Improved when she put feet down. Resolved quickly. This was upsetting for her. No hx seizure disorder, TIA, TGA. Chronic pain, on hydrocodone/APAP. A [email or web address]([place] Prescription Monitoring System) report on this patient was printed and reviewed today to ensure the prescribing and dispensing of their medications is in accordance with the treatment plan. Last Rx methylphenidate filled 09/21/2019 #30 (per Dr Bacon), hydrocodone filled 09/16/2019 #112., zolpidem filled 09/15/2019 #28. Depression/anxiety, on Buspar, started on Cymbalta at last visit. Tolerating COPD/emphysema/asthma,followed by Pulmonology, on Advair, Spiriva, Xopenex prn, Daliresp, Duonebs. Needed new nebulizer at last visit. Doing well. Allergic rhinitis, on Jesusita, Singulair. Obesity has lost 20lb due to stress Active problem list, past medical history, past surgical history, medications, allergies, family history and social history were reviewed. Mammogram pending Had CT scan, no suspicious findings, follow up 1 year Awaiting colonoscopy Has new dentist ROS - See HPI Objective: BP 126/72 (BP Cuff Location: Left arm, BP Patient Position: Sitting, BP Cuff Sizes: Adult, regular) Pulse 92 Resp 18 Ht 162.6 cm (64.02) Wt 82.6 kg (182 lb) LMP 01/11/1987 BMI 31.22 kg/m?? Physical Exam Alert, NAD Mood, affect improved Assessment: See below by problem Plan: Liset was seen today for follow-up and chronic pain. Diagnoses and all orders for this visit: Muscle spasm Massage Methocarbamol prn Gastroenteritis Fluids, rest, medications as needed Chronic low back pain, unspecified back pain [...] days for Pain. Daily Max: 8 Tabs Stable Chronic obstructive pulmonary disease, unspecified COPD type ([facility]) - roflumilast (DALIRESP) 500 mcg tablet; Take 1 Tab by mouth daily. Stable Panlobular emphysema ([facility]) Major depressive disorder, recurrent, severe without psychotic features ([facility]) - DULoxetine (CYMBALTA) 30 mg delayed release capsule; Take 1 Cap by mouth daily. Mood improved, increase to 30 mg Anxiety - DULoxetine (CYMBALTA) 30 mg delayed release capsule; Take 1 Cap by mouth daily. Obesity (BMI 30-39.9) Has lost weight Impaired glucose tolerance - HEMOGLOBIN A1C; Future Insomnia, unspecified type - zolpidem (AMBIEN) 5 mg tablet; TAKE 1 TABLET BY MOUTH NIGHTLY AT BEDTIME NEEDED FOR SLEEP. DAILY MAX: 5 MG Migraine without status migrainosus, not intractable, unspecified migraine type Stable Screen for colon cancer Call for colonscopy Also has had Shingrix #1, due for #2, not available today, Discussed may contact pharmacy or will address at next visit Patient Education Topic: as above Method: Verbal Taught to: Patient Barriers: None Outcomes: Verbalized understanding I spent a total of 25 minutes of face to face time with the patient today, and 25 minutes was spentcounseling the patient on the above issues. Recheck 12 weeks documented in this encounter Plan of Treatment Upcoming Encounters Date Type Department Care Team (Late st Contact Info) Description 06/29/2024 14:15 EDT Office Visit [facility] [address] [place], [place] [phone] Jean Munoz MD [address] [place] [phone] documented as of this encounter Results * (ABNORMAL) HEMOGLOBIN A1C (10/09/2019 14:12 EST) Hemoglobin A1c 5.8(H) <5.7 % 10/10/2019 8:41 EST [facility] Comment: Glycemic Status References: Normal: [...] Avg Glucose 120 mg/dL 0 8:41 EST [facility] Comment: The eAG represents the A1c result expressed as average glucose in mg/dL. Blood VENOUS BLOOD / Unknown Venipuncture / Unknown 10/09/2019 14:12 EST 10/09/2019 14:12 EST Jean Munoz MD CHEMISTRY & BLO OD GAS ORDERABLES [facility] [address] [place] [address] documented in this encounter Visit Diagnoses Diagnosis Muscle spasm- Primary Spasm of muscle Gastroenteritis Other and unspecified noninfectious gastroenteritis and colitis Chronic low back pain, unspecified back pain laterality, unspecified whether sciatica present Chronic pain syndrome Chronic use of opiate for therapeutic purpose Pain medication agreement Encounter for long-term (current) use of other medications Chronic obstructive pulmonary disease, unspecified COPD type (HCC-CMS) Panlobular emphysema (HCC-CMS) Other emphysema Major depressive disorder, recurrent, severe without psychotic features (HCC- CMS) Major depressive disorder, recurrent episode, severe, without mention of psychotic behavior Anxiety Anxiety state, unspecified Obesity (BMI 30-39.9) Obesity, unspecified Impaired glucose tolerance Impaired glucose tolerance test Insomnia, unspecified type Migraine without status migrainosus, not intractable, unspecified migraine type Screen for colon cancer Special screening for [...] te DULoxetine (CYMBALTA) 20 mg delayed release capsuleIndications:Anxie ty,Major depressive disorder, recurrent, severe without psychotic features (HCC-CMS) Take 1 Cap by mouth daily. Reorder 08/30/2019 10/09/2019 HYDROcodone-acetaminophe n (NORCO) 5-325 mg tabletIndications:Chroni c pain syndrome,Chronic use of opiate for therapeutic purpose,Chronic low back pain, unspecified back pain laterality, unspecified whether sciatica present,Pain medication agreement Take 1-2 Tabs by mouth every 6 hours as needed for up to 28 days for Pain. Daily Max: 8 Tabs Reorder 07/24/2019 10/09/2019 HYDROcodone-acetaminophe n (NORCO) 5-325 mg tabletIndications:Chroni c pain syndrome,Chronic use of opiate for therapeutic purpose,Chronic low back pain, unspecified back pain laterality, unspecified whether sciatica present,Pain medication agreement Take 1-2 Tabs by mouth every 6 hours as needed for up to 28 days for Pain. Daily Max: 8 Tabs Reorder 08/21/2019 10/09/2019 HYDROcodone-acetaminophe n (NORCO) 5-325 mg tabletIndications:Chroni c pain syndrome,Chronic use of opiate for therapeutic purpose,Chronic low back pain, unspecified back pain laterality, unspecified whether sciatica present,Pain medication agreement Take 1-2 Tabs by mouth every 6 hours as needed for up to 28 days for Pain. Daily Max: 8 Tabs Reorder 09/18/2019 10/09/2019 DALIRESP 500 mcg tabletIndications:Chroni c obstructive pulmonary disease, unspecified COPD type (HCC-CMS) TAKE 1 TABLET BY MOUTH EVERY DAY Reorder 06/20/2019 10/09/2019 zolpidem (AMBIEN) 5 mg tabletIndications:Insomn ia, unspecified type TAKE 1 TABLET BY MOUTH NIGHTLY AT BEDTIME NEEDED FOR SLEEP. DAILY MAX: 5 MG Reorder 07/24/2019 10/09/2019 documented as of this encounter Care Teams Paving Contractor Relationship Specialty Start Date End Date Jean Munoz MD [address] [place] [phone] PCP - General 12/31/08 Manny Rizzo MD [address] [place] [phone] 04/20/10 documented as of this encounter
--- OUTSIDE RECORDS SUMMARY | 2024-06-10 07:15 | XMS_ITS | Encounter Summary ---
Author Organization [facility] Address [address] [place] [address] Care Team Providers Care Lube Worker Name Role Phone Jean Munoz MD Primary Care Provider Manny Rizzo MD Unavailable Afia Valle MD Unavailable SaloJesi shanks WAITER/WAITRESS ROOM SERVICE Unavailable SaloJesi shanks E WAITER/WAITRESS ROOM SERVICE Unavailable Reason for Visit * Reason Onset Date Comments Medications Refill 10/17/2019 Encounter Details Date Type Department Care Team (Late st Contact Info) Description 10/17/2019 Refill [facility] [place] [address] [place] [phone] Bassam Euceda MD [address] [facility]. [address] [place] [phone] Medications Refill Social History Tobacco Use Types [...] in the morning. 60 Tab 10/19/2019 11/14/2019 methylphenidate HCl (RITALIN;METHYLIN) 10 mg tablet Take one tab in the afternoon for narcolepsy. 30 Tab 10/19/2019 11/14/2019 documented in this encounter Miscellaneous Notes * Telephone Encounter - Corrina Ac RN - 10/19/2019 0913 EST Spoke with pt. She was seen in Urgent Care yesterday and it was determine her BP is too low which was causing dizziness symptoms. She was started on a BP med for migraine prevention. This was discontinued. Pt last seen by on 02/13/19. Refill request for both methylphenidate prescriptions. The [place] Prescription Monitoring System query has been completed per the following requirement(s): Annual Verification. Pended orders to , Provider gas pumping station operator. * Telephone Encounter - Shaista Forde - 10/19/2019 0902 EST Pt called checking on RX - pt went to ED and they informed pt it is due to BP. Please call if any questions [phone] * Telephone Encounter - Shaista Forde - 10/18/2019 1251 EST Pt returned call to nurse would like a call back [phone] * Telephone Encounter - Corrina Ac RN - 10/17/2019 1221 EST Tried number listed for son, not a working number; outgoing message states this number has callingrestrictions. Tried patient's home number, no answer. Left message suggesting she go to Urgent care for eval or get in contact w/ PCP for advice as message stating she is having new/worsening symptoms including loss of balance/dizziness and blackouts. Asked her to let us know the outcome and asked her to call me regarding her refill requests when resolved. Pt last seen by on 02/14/19. * Telephone Encounter - Cory Carter - 10/17/2019 1134 EST Pt called for RX refills: methylphenidate HCl (RITALIN;METHYLIN) 10 mg tablet methylphenidate HCl (RITALIN;METHYLIN) 20 mg tablet Pharmacy is [facility] [place] Pt also needs call from RN stefan to discuss new/worsening symptoms including loss of balance/dizziness and blackouts - Call on Son's Cell number if unable to reach her on home number documented in this encounter Plan of Treatment Upcoming Encounters Date Type Department Care Team (Late st Contact Info) Description 06/29/2024 14:15 EDT Office Visit [facility] [address] [place], [place] [phone] Jean Munoz MD [address] [place] [phone] documented as of this encounter Visit Diagnoses Not on filedocumented in this encounter Discontinued Medications Medication Sig Discontinue Reason Start Date End Da te methylphenidate HCl (RITALIN;METHYLIN) 10 mg tablet Take one tab in the afternoon for narcolepsy. Reorder 09/21/2019 10/17/2019 methylphenidate HCl (RITALIN;METHYLIN) 20 mg tablet Take 2 tabs by mouth in the morning. Reorder 09/21/2019 10/17/2019 documented as of this encounter Additional Health Concerns Infection Onset Date Last Indicated Resolved Time R/O COVID-19 05/15/2022 05/15/2022 05/20/2022 22:1 6 EDT R/O COVID-19 11/14/2022 11/14/2022 11/14/2022 19:1 6 EST documented as of this encounter Care Teams Lube Worker Relationship Specialty Start Date End Date Jean Munoz MD [address] [place] [phone] PCP - General 12/31/08 Manny Rizzo MD [address] [place] [phone] 04/20/10 Afia Valle MD [address] [facility] [address] [place] [phone] Care Team Radiation Oncology 07/02/21 Jesi Leong [facility] [address] [place] [phone] Tag Press Operator 12/24/21 09/20/22 Jesi Leong [facility] [address] [place] [phone] Behavioral Health Tag Press OperatorAccounting Professor Care 10/19/22 01/23/24 documented as of this encounter
--- OUTSIDE RECORDS SUMMARY | 2024-06-10 07:15 | XMS_ITS | Encounter Summary ---
Author Organization [facility] Address [address] [place] [address] Care Team Providers Care Pump Attendant Name Role Phone Jean Munoz MD Primary Care Provider Manny Rizzo MD Unavailable Afia Valle MD Unavailable SaloJesi shanks MANAGER [facility] Unavailable SaloJesi E MANAGER [facility] Unavailable Reason for Visit * Reason Onset Date Comments Medications Refill 08/22/2019 Encounter Details Date Type Department Care Team (Late st Contact Info) Description 08/22/[address] [facility] Sleep Program - [place] [address] [place] [address] [phone] Bassam Euceda MD [address] [facility]. Level [address] [place] [phone] Medications Refill Social History Tobacco Use Types [...] by mouth in the morning. 60 Tab 08/24/2019 09/19/2019 methylphenidate HCl (RITALIN;METHYLIN) 10 mg tablet Take one tab in the afternoon for narcolepsy. 30 Tab 08/24/2019 09/19/2019 documented in this encounter Miscellaneous Notes * Telephone Encounter - Corrina Ac RN - 08/22/2019 1331 EST Pt last seen by Dr. Bacon on 02/14/19. Refill requests for her methylphenidate scripts. The [place] Prescription Monitoring System query has been completed per the following requirement(s): Annual Verification. Pended orders to , provider talent acquisition relationship manager. * Telephone Encounter - Cory Carter - 08/22/2019 1252 EST Pt called for two Med RX refills: methylphenidate HCl (RITALIN;METHYLIN) 10 mg tablet methylphenidate HCl (RITALIN;METHYLIN) 20 mg tablet Pharmacy of choice is [facility][id number] [place], [place] documented in this encounter Plan of Treatment Upcoming Encounters Date Type Department Care Team (Late st Contact Info) Description 06/29/2024 14:15 EDT Office Visit [facility] [address] [place] [address] Jean Munoz MD [address] [place] [address] documented as of this encounter Visit Diagnoses Not on filedocumented in this encounter Discontinued Medications Medication Sig Discontinue Reason Start Date End Da te methylphenidate HCl (RITALIN;METHYLIN) 10 mg tablet Take one tab in the afternoon for narcolepsy. Reorder 07/27/2019 08/22/2019 methylphenidate HCl (RITALIN;METHYLIN) 20 mg tablet Take 2 tabs by mouth in the morning. Reorder 07/27/2019 08/22/2019 documented as of this encounter Additional Health Concerns Infection Onset Date Last Indicated Resolved Time R/O COVID-19 05/15/2022 05/15/2022 05/20/2022 22:1 6 EDT R/O COVID-19 11/14/2022 11/14/2022 11/14/2022 19:1 6 EST documented as of this encounter Care Teams Pump Attendant Relationship Specialty Start Date End Date Jean Munoz MD [address] [place] [address] PCP - General 12/31/08 Manny Rizzo MD [address] [place] [phone] 04/20/10 Afia Valle MD [address] [place] [address] 2 [place] [phone] Care Team Radiation Oncology 07/02/21 Jesi Leong, [facility] [address] [place] [phone] Bingo Manager 12/24/21 09/20/22 Jesi Leong [facility] [address] [place] [phone] Behavioral Health Bingo ManagerClay Products Machine Operator Care 10/19/22 01/23/24 documented as of this encounter
--- OUTSIDE RECORDS SUMMARY | 2024-06-10 07:15 | XMS_ITS | Encounter Summary ---
Author Organization [facility] Address [address] [place] [address] Care Team Providers Care Diathermy Equipment Repairer Name Role Phone Jean Munoz MD Primary Care Provider Manny Rizzo MD Unavailable Reason for Visit * Reason Comments Other Encounter Details Date Type Department Care Team (Late st Contact Info) Description 06/22/[address] [facility] [address] [place] [address] Siena Salazar MD [address] [place] [phone] Other Social History Tobacco Use Types [...] NEEDED FOR SLEEP. DAILY MAX: 5 MG 30 Tab 06/22/2019 07/24/2019 documented in this encounter Miscellaneous Notes * Telephone Encounter - Yadira Mccauley RN - 06/22/2019 1223 EDT Medication(s) Requested: ambien 5 [facility]acy: [facility] Is patient out of medication? Unknown Last Refill Date: 05/26/19 Last Visit Date with Ordering Provider: 04/25/19 Next Non-Acute Visit Date Scheduled with Care Team:07/18/19 Yadira Mccauley RN 06/22/2019 12:23 documented in this encounter Plan of Treatment Upcoming Encounters Date Type Department Care Team (Late st Contact Info) Description 06/29/2024 14:15 EDT Office Visit [facility] Family Medicine [facility] [address] [place] [address] Jean Munoz MD [address] [place] [address] documented as of this encounter [...] NIGHTLY AT BEDTIME NEEDED FOR SLEEP. DAILY MAX:5MG Reorder 05/26/2019 06/22/2019 documented as of this encounter Care Teams Diathermy Equipment Repairer Relationship Specialty Start Date End Date Jean Munoz MD [address] [place] [address] PCP - General 12/31/08 Manny Rizzo MD [address] [place] [phone] 04/20/10 documented as of this encounter
--- OUTSIDE RECORDS SUMMARY | 2024-06-10 07:15 | XMS_ITS | Encounter Summary ---
Author Organization [facility] Address [address] [place] [address] Care Team Providers Care Qc Chemist Name Role Phone Jean Munoz MD Primary Care Provider Manny Rizzo MD Unavailable Reason for Visit * Reason Onset Date Comments Letter for School/Work 11/02/2019 Encounter Details Date Type Department Care Team (Late st Contact Info) Description 11/02/[address] [facility] 3 [place] [address] Jean Munoz MD [address] [place] [phone] Letter for School/Work Social History Tobacco [...] encounter Miscellaneous Notes * Telephone Encounter - Fozia Ojeda MD - 11/03/2019 1110 EST Done, Fozia Ojeda MD * Telephone Encounter - Cathy Grullon - 11/03/2019 1033 EST [employer] calling, they received the letter but it has not been signed. They need a signed letter. Letter dated yesterday. Can POD sign? * Telephone Encounter - Jean Munoz MD - 11/02/2019 1622 EST Letter done * Telephone Encounter - Gabby Beltran - 11/02/2019 1441 EST Reason for Call: Letter for School/Work Summary/Symptoms: Pt requesting letter to be sent to [facility] to keep her electricity on. Received a disconnect notice today. Pls fax to [employer]. Pended. Onset and Duration? Appointment Offered? No Gabby Beltran 11/02/2019 14:42 documented in this encounter Plan of Treatment Upcoming Encounters Date Type Department Care Team (Late st Contact Info) Description 06/29/2024 14:15 EDT Office Visit [facility] [address] [place], [place] [phone] Jean Munoz MD [address] [place] [address] documented as of this encounter Visit Diagnoses Not on filedocumented in this encounter Care Teams Qc Chemist Relationship Specialty Start Date End Date Jean Munoz MD [address] [place] [address] PCP - General 12/31/08 Manny Rizzo MD [address] [place] [address] 04/20/10 documented as of this encounter
--- OUTSIDE RECORDS SUMMARY | 2024-06-10 07:15 | XMS_ITS | Encounter Summary ---
Author Organization [facility] Address [address] [place] [address] Care Team Providers Care Fire Sprinkler Apparatus Inspector Name Role Phone Jean Munoz MD Primary Care Provider Manny Rizzo MD Unavailable Afia Valle MD Unavailable SaloJesi shanks OIL FIELD LABORER Unavailable SaloJesi shanks E OIL FIELD LABORER Unavailable Reason for Visit * Reason Onset Date Comments Medications Refill 09/19/2019 Encounter Details Date Type Department Care Team (Late st Contact Info) Description 09/19/2019 Refill [facility] Sleep Program - [place] [address] [place] [phone] Bassam Euceda MD 111 [facility]. Level [address] [place] [phone] Medications Refill Social History Tobacco Use Types [...] by mouth in the morning. 60 Tab 09/21/2019 10/17/2019 methylphenidate HCl (RITALIN;METHYLIN) 10 mg tablet Take one tab in the afternoon for narcolepsy. 30 Tab 09/21/2019 10/17/2019 documented in this encounter Miscellaneous Notes * Telephone Encounter - Corrina Ac RN - 09/19/2019 1326 EST Pt last seen by on 02/13/19. Refill requests for both methylphenidate prescriptions. [facility] Prescription Monitoring System query has been completed per the following requirement(s): Annual Verification. Pended orders to , Provider salesperson hosiery. * Telephone Encounter - Shaista Forde - 09/19/2019 1318 EST Medication Refill Medication(s) Requested: methylphenidate HCl (RITALIN;METHYLIN) 10 mg tablet- Take one tab in the afternoon for narcolepsy. methylphenidate HCl (RITALIN;METHYLIN) 20 mg tablet - Take 2 tabs by mouth in the morning. Pharmacy (le pharmacy list): [id number] - [place], [place] - [address] Is patient out of medication? Kristi Forde 09/19/201913:18 documented in this encounter Plan of Treatment Upcoming Encounters Date Type Department Care Team (Late st Contact Info) Description 06/29/2024 14:15 EDT Office Visit [facility] 3 [place] [address] Jean Munoz MD [address] [place] [address] documented as of this encounter Visit Diagnoses Not on filedocumented in this encounter Discontinued Medications Medication Sig Discontinue Reason Start Date End Da te methylphenidate HCl (RITALIN;METHYLIN) 10 mg tablet Take one tab in the afternoon for narcolepsy. Reorder 08/24/2019 09/19/2019 methylphenidate HCl (RITALIN;METHYLIN) 20 mg tablet Take 2 tabs by mouth in the morning. Reorder 08/24/2019 09/19/2019 documented as of this encounter Additional Health Concerns Infection Onset Date Last Indicated Resolved Time R/O COVID-19 05/15/2022 05/15/2022 05/20/2022 22:1 6 EDT R/O COVID-19 11/14/2022 11/14/2022 11/14/2022 19:1 6 EST documented as of this encounter Care Teams Fire Sprinkler Apparatus Inspector Relationship Specialty Start Date End Date Jean Munoz MD [address] [place] [phone] PCP - General 12/31/08 Manny Rizzo MD [facility]5 [place] [address] 04/20/10 Afia Valle MD [address] [place], [place] [address]on, Level [address] [place] [address] MD Care Team Radiation Oncology 07/02/21 Jesi Leong OIL FIELD LABORER [address] [place] [address] Linux Administrator 12/24/21 09/20/22 Jesi Leong OIL FIELD LABORER [address] [place] [address] Behavioral Health Linux AdministratorWire Brusher Care 10/19/22 01/23/24 documented as of this encounter
--- OUTSIDE RECORDS SUMMARY | 2024-06-10 07:15 | XMS_ITS | Encounter Summary ---
Author Organization [facility] Address [address] [place] [address] Care Team Providers Care Vice President Of Brand Management Name Role Phone Jean Munoz MD Primary Care Provider Manny Rizzo MD Unavailable Afia Valle MD Unavailable SaloJesi shanks DIRECTOR LIFE INSURANCE Unavailable SaloJesi E DIRECTOR LIFE INSURANCE Unavailable Reason for Visit * Reason Onset Date Comments Medications Refill 07/24/2019 Encounter Details Date Type Department Care Team (Late st Contact Info) Description 07/24/2019 Refill [facility] Sleep Program - [place] [address] [place] [phone] Bassam Euceda MD 111 [facility]. Level [address] [place] [phone] Medications Refill Social History Tobacco Use Types [...] by mouth in the morning. 60 Tab 07/27/2019 08/22/2019 methylphenidate HCl (RITALIN;METHYLIN) 10 mg tablet Take one tab in the afternoon for narcolepsy. 30 Tab 07/27/2019 08/22/2019 documented in this encounter Miscellaneous Notes * Telephone Encounter - Corrina Ac RN - 07/25/2019 0724 EST Pt last seen by on 02/14/19. Refill requests for methylphenidates. The [place] Prescription Monitoring System query has been completed per the following requirement(s): Annual Verification. Pended orders to . * Telephone Encounter - Cory Carter - 07/24/2019 1542 EST Pt called for RX refills - 2 Meds: methylphenidate HCl (RITALIN;METHYLIN) 10 mg tablet methylphenidate HCl (RITALIN;METHYLIN) 20 mg tablet Pharmacy is - [id number] [place], [place] documented in this encounter Plan of Treatment Upcoming Encounters Date Type Department Care Team (Late st Contact Info) Description 06/29/2024 14:15 EDT Office Visit [facility] 3 [place] [address] Jean Munoz MD [address] [place] [address] documented as of this encounter Visit Diagnoses Not on filedocumented in this encounter Discontinued Medications Medication Sig Discontinue Reason Start Date End Da te methylphenidate HCl (RITALIN;METHYLIN) 10 mg tablet Take one tab in the afternoon for narcolepsy. Reorder 06/29/2019 07/25/2019 methylphenidate HCl (RITALIN;METHYLIN) 20 mg tablet Take 2 tabs by mouth in the morning. Reorder 06/29/2019 07/25/2019 documented as of this encounter Additional Health Concerns Infection Onset Date Last Indicated Resolved Time R/O COVID-19 05/15/2022 05/15/2022 05/20/2022 22:1 6 EDT R/O COVID-19 11/14/2022 11/14/2022 11/14/2022 19:1 6 EST documented as of this encounter Care Teams Vice President Of Brand Management Relationship Specialty Start Date End Date Jean Munoz MD [address] [place] [address] PCP - General 12/31/08 Manny Rizzo MD [address] [place] [address] 04/20/10 Afia Valle MD [address] [place] [address] 2 [place] [phone] Care Team Radiation Oncology 07/02/21 Jesi Leong [facility] 3 [place] [phone] Vice Provost 12/24/21 09/20/22 Jesi Leong, [facility] 3 [place] [phone] Behavioral Health Vice ProvostDirector Of Casework Care 10/19/22 01/23/24 documented as of this encounter
--- OUTSIDE RECORDS SUMMARY | 2024-06-10 07:15 | XMS_ITS | Encounter Summary ---
Author Organization [facility] Address [address] [place] [address] Care Team Providers Care Oracle Technical Architect Name Role Phone Jean Munoz MD Primary Care Provider Manny Rizzo MD Unavailable Reason for Visit * Radiology Services (Routine) - New Request Specialty Diagnoses / Procedures [facility] Referred To Contact Diagnoses Encounter for screening for lung cancer Procedures CT CHEST LOW DOSE LUNG SCREENING CT CHEST LOW DOSE LUNG SCREENING Jean Munoz MD [address] [place] [address] Referral ID Status Reason Start Date Expiration Date V isits Requested Visits Authorized [id number] New Request 07/19/2019 1 1 Encounter Details Date Type Department Care Team (Latest Contact Info) Description 08/17/2019 12:40 EST - 08/17/2019 23:59 EST Hospital Encounter [facility] [address] [place] [address] Discharge Disposition: Home or Self Care Social [...] TABLET BY MOUTH EVERY DAY 90 Tab 06/20/2019 08/30/2019 blood glucose (BLOOD GLUCOSE TEST) test stripsIndications:Impai red glucose tolerance 1 Strip by misc (non-drug; combo route) route 2 times daily. 100 Each 1 07/05/2018 07/08/2021 busPIRone (BUSPAR) 10 mg tabletIndications:Anxie ty Take 1 Tab by mouth 3 times daily. 90 Tab 2 07/18/2019 08/30/2019 Ciclesonide 50 mcg spray,non-aerosolIndica tions:Seasonal allergic rhinitis, unspecified trigger 1 spray each nostril daily 37.5 g 5 03/03/2018 08/04/2023 Clindamycin Phosphate (CLINDACIN P) 1 % swab Apply to left 4th interspace daily as instructed 1 Each 04/27/2018 08/30/2019 cycloSPORINE (RESTASIS) 0.05 % ophthalmic emulsion Place 1 drop into both eyes 2 times daily. 1 vial 11/11/2018 10/06/2023 DALIRESP 500 mcg tabletIndications:Chron ic obstructive pulmonary disease, unspecified COPD type ([facility]) TAKE 1 TABLET BY MOUTH EVERY DAY 90 Tab 1 06/20/2019 10/09/2019 doxycycline (VIBRAMYCIN) 100 mg capsuleIndications:Elaine cea TAKE 1 CAPSULE BY MOUTH EVERY DAY 90 Cap 3 09/21/2018 08/30/2019 fexofenadine (JUDITH) 180 mg tablet TAKE 1 TABLET BY MOUTH EVERY DAY 30 Tab 5 04/04/2019 08/30/2019 fluticasone propion-salmeterol (ADVAIR HFA) 115-21 mcg/actuation inhalerIndications:Mode rate persistent asthma, unspecified whether complicated INHALE ONE PUFF BY MOUTH TWICE DAILY as directed 12 g 10 05/26/2019 08/30/2019 HYDROcodone-acetaminoph en (NORCO) 5-325 mg tabletIndications:Chron ic pain syndrome,Chronic use of opiate for therapeutic purpose,Chronic low back pain, unspecified back pain laterality, unspecified whether sciatica present,Pain medication agreement Take 1-2 Tabs by mouth every 6 hours as needed for up to 28 days for Pain. Daily Max: 8 Tabs 112 Tab 09/18/2019 10/09/2019 HYDROcodone-acetaminoph en (NORCO) 5-325 mg tabletIndications:Chron [...] Max: 8 Tabs 112 Tab 07/24/2019 10/09/2019 hydroxypropyl methylcellulose (ISOPTO TEARS) 0.5 % ophthalmic solution Place 1 Drop into both eyes 5 times daily. 12/10/2010 10/06/2023 ipratropium-albuterol (DUONEB) 0.5 mg-3 mg(2.5 mg base)/3 mL nebulizer solutionIndications:Mod erate persistent asthma without complication Take 3 mL by nebulization every 4 hours as needed for Wheezing. 3 mL 3 08/18/2018 08/30/2019 lancetsIndications:Keagana neelam glucose tolerance Brand:Tail, tests 2 times daily 100 Each 2 07/05/2018 07/08/2021 levalbuterol (XOPENEX HFA) 45 mcg/actuation inhalerIndications:Mode rate persistent asthma without complication INHALE TWO PUFFS BY MOUTH EVERY SIX HOURS NEEDED 45 g 5 05/26/2018 08/30/2019 methocarbamol (ROBAXIN) 500 mg tabletIndications:Chron ic pain syndrome take 2 tablets by mouth at bedtime 60 Tab 2 05/26/2019 08/18/2019 methylphenidate HCl (RITALIN;METHYLIN) 10 mg tablet Take one tab in the afternoon for narcolepsy. 30 Tab 07/27/2019 08/22/2019 methylphenidate HCl (RITALIN;METHYLIN) 20 mg tablet Take 2 tabs by mouth in the morning. 60 Tab 07/27/2019 08/22/2019 montelukast (SINGULAIR) 10 mg tabletIndications:Moder ate persistent asthma without complication TAKE 1 TABLET BY MOUTH EVERY DAY 90 Tab 07/28/2019 08/30/2019 omeprazole (PRILOSEC) 40 mg capsuleIndications:Benja roesophageal reflux disease, esophagitis presence not specified Take 1 Cap by mouth daily. 90 Cap 3 05/26/2018 08/30/2019 ondansetron (ZOFRAN) 4 mg tabletIndications:Nause a TAKE ONE TABLET BY MOUTH DAILY NEEDED FOR NAUSEA 30 Tab 5 07/14/2019 10/23/2020 polyethylene glycol (GOLYTELY;NULYTELY) 236-22.74-6.74 -5.86 gram suspensionIndications:Rain bolton for colon cancer Instructions mailed once procedure scheduled. Questions: [facility]: [phone] or GI Doctor's Office. 4000 mL 07/18/2019 01/14/2020 pregabalin (LYRICA) 300 mg capsuleIndications:Mind Reader majo low back pain TAKE ONE CAPSULE BY MOUTH TWICE DAILY 60 Cap 4 08/11/2019 01/11/2020 promethazine (PHENERGAN) 25 mg tabletIndications:Nause a TAKE ONE TABLET BY MOUTH EVERY SIX HOURS NEEDED FOR NAUSEA 25 Tab 5 07/14/2019 07/03/2020 rOPINIRole (REQUIP) 2 mg tabletIndications:Restl ess legs syndrome TAKE 1 TABLET BY MOUTH NIGHTLY AT BEDTIME 90 Tab 3 07/24/2019 07/07/2021 sertraline (ZOLOFT) 100 mg tabletIndications:Major depressive disorder, recurrent, severe without psychotic features ([facility]) TAKE TWO TABLETS BY MOUTH DAILY 180 Tab 3 05/26/2018 08/30/2019 sumatriptan (IMITREX) 50 mg tabletIndications:Migra ine without status migrainosus, not intractable, unspecified migraine type take 1 tablet by mouth as needed for migraine. daily limit 2 tabs 9 Tab 3 05/05/2019 09/07/2019 tamsulosin (FLOMAX) 0.4 mg capsuleIndications:Becca zapata Take 1 Cap by mouth daily. 90 Cap 3 05/26/2018 08/30/2019 tiotropium bromide (SPIRIVA RESPIMAT) 1.25 mcg/actuation inhalerIndications:Mind Reader majo obstructive pulmonary disease, unspecified COPD type ([facility]) INHALE TWO PUFFS (2.5 mcg) daily as directed 12 g 3 02/07/2019 02/01/2020 traMADol (ULTRAM) 50 mg tabletIndications:Chron ic pain syndrome,Chronic use of opiate for therapeutic purpose Take 1 Tab by mouth every 6 hours as needed for Pain. Daily Max: 200 mg 60 Tab 08/18/2018 08/30/2019 venlafaxine (EFFEXOR-XR) 37.5 mg XR capsuleIndications:Pain medication agreement,Severe major depression without psychotic features ([facility]) Take 1 Cap by mouth daily. 30 Cap 2 07/18/2019 08/30/2019 zolpidem (AMBIEN) 5 mg tabletIndications:Insom yesi, unspecified type TAKE 1 TABLET BY MOUTH NIGHTLY AT BEDTIME NEEDED FOR SLEEP. DAILY MAX: 5 MG 28 Tab 2 07/24/2019 10/09/2019 zolpidem (AMBIEN) 5 mg tabletIndications:Insom yesi, unspecified type Take 1 tablet by mouth at bedtime as needed for up to 28 days for Sleep. Daily Max: 5 mg 28 tablet 2 11/15/2018 08/30/2019 zoster vaccine recombinant, PF, (SHINGRIX, PF,) IM Injection - vialIndications:Need for shingles vaccine Inject 0.5 mL into the muscle once for 1 dose. 1 Each 08/18/2018 10/18/2019 zoster vaccine recombinant, PF, (SHINGRIX, PF,) IM Injection - vialIndications:Need for shingles vaccine Inject 0.5 mL into the muscle once for 1 dose. 1 Each 02/16/2019 10/18/2019 documented as of this encounter Discharge Disposition Disposition Code Departure Means Destination Home or Self Care documented in this encounter Plan of Treatment Upcoming Encounters Date Type Department Care Team (Late st Contact Info) Description 06/29/2024 14:[address] [facility] [address] [place], [place] [phone] Jean Munoz MD [address] [place] [phone] documented as of this encounter Procedures Procedure Name Priority Date/Time Associated Diagnosis Comments CT CHEST LOW DOSE LUNG SCREENING Routine 08/17/2019 13:01 EST Encounter for screening for lung cancer documented in this encounter Results * CT CHEST LOW DOSE LUNG SCREENING (08/17/2019 13:01 EST) Anatomical Region Laterality Modality Chest Computed Tomogra phy Impressions 08/17/2019 13:51 EST 1. LungRADS category 1 (Negative) ?? 2. LungRADS category S: Negative, no new or potentially significant incidental findings requiring urgent additional evaluation. 3. LungRADS category C: No history of prior lung cancer. 4. Incidental findings as above. RECOMMENDATIONS: Follow up low dose CT in 1 year is recommended. Continued ??low dose CT lung cancer screening should be based upon continued eligibility depending upon age and smoking history. This report utilizes the CT Lung Screening Reporting and Data System (ACR LungRADS version 1.0) as below: Category 0: Incomplete (part or [...] significant ancillary finding requiring urgent additional evaluation. Narrative 08/17/2019 13:[address] CHEST LOW DOSE LUNG SCREENING ??08/17/2019 12:53 PM Clinical History/Comments: screen for lung cancer Technique: A single breath-hold helical CT acquisition [...] lung cancer screening (initial or follow-up). Comparison: 01/13/2017 Findings: Lung Screening Specific (LungRADS) findings: * ??No distinct pulmonary nodules (stable regions of nodular scarring within the lung apices). * ??No new nodules. Potentially Significant Incidentals (LungRADS Category S): None Pulmonary Incidentals: * ??Moderate to severe emphysema. * ??Large airways thickening and scattered secretions. * ??Scattered focal regions of lung scarring/atelectasis. ?? Other incidentals: * ??Prior lower esophageal/gastric surgery (gastric fundoplication). * ??Mild vascular calcifications. * ??Anterior cervical fusion plate. ACR Reportable Incidentals: ??None Jean Munoz MD IMG CT ORDERABL ES documented in this encounter Visit Diagnoses Not on filedocumented in this encounter Care Teams Oracle Technical Architect Relationship Specialty Start Date End Date Jean Munoz MD [address] [place] [phone] PCP - General 12/31/08 Manny Rizzo MD [address] [place] [address] 04/20/10 documented as of this encounter
--- OUTSIDE RECORDS SUMMARY | 2024-06-10 07:15 | XMS_ITS | Encounter Summary ---
Author Organization [facility] Address [address] [place] [address] Care Team Providers Care Abattoir Manager Name Role Phone Jean Munoz MD Primary Care Provider Manny Rizzo MD Unavailable Reason for Visit * Reason Onset Date Comments Letter for School/Work 08/02/2019 Encounter Details Date Type Department Care Team (Late st Contact Info) Description 08/02/2019 Telephone [facility] [address] [place] [address] Jean Munoz MD [address] [place] [phone] Letter for School/Work Social History Tobacco [...] * Telephone Encounter - Carmita Franklin - 08/02/2019 1432 EST Letter faxed. * Telephone Encounter - Jean Munoz MD - 08/02/2019 1351 EST Letter done * Telephone Encounter - Zuri Delaney - 08/02/2019 0844 EST Reason for Call: Letter for School/Work Summary/Symptoms: Patient calling to explain that her electricity will be shut off. Her son will pay it on the as the bill is in his name. She also has has no heat. Is requesting kerosine for this as well? States Dr. Munoz told her that we could help with financial things if needed. Patient then tried to give me her account number multiple times. Her power company is [employer] and she is requesting a letter to keep her electricity on. Pended letter. Onset and Duration? Power was supposed to be shut off on the . Has not been yet. Appointment Offered? N/A Zuri Delaney 08/02/2019 8:46 documented in this encounter Plan of Treatment Upcoming Encounters Date Type Department Care Team (Late st Contact Info) Description 06/29/2024 14:15 EDT Office Visit [address] [place] [address] Jean Munoz MD [address] [place] [phone] documented as of this encounter Visit Diagnoses Not on filedocumented in this encounter Care Teams Abattoir Manager Relationship Specialty Start Date End Date Jean Munoz MD [address] [place] [phone] PCP - General 12/31/08 Manny Rizzo MD [address] [place] [phone] 04/20/10 documented as of this encounter
--- OUTSIDE RECORDS SUMMARY | 2024-06-10 07:15 | XMS_ITS | Encounter Summary ---
Author Organization [facility] Address [address] [place] [address] Care Team Providers Care Anchorman Name Role Phone Jean Munoz MD Primary Care Provider Manny Rizzo MD Unavailable Reason for Visit * Reason Comments Other Encounter Details Date Type Department Care Team (Late st Contact Info) Description 07/27/2019 [facility] [address] [place] [address] Jean Munoz MD [address] [place] [phone] Other Social History Tobacco Use Types [...] End Da te montelukast (SINGULAIR) 10 mg tabletIndications:Moderate persistent asthma without complication TAKE 1 TABLET BY MOUTH EVERY DAY 90 Tab 07/28/2019 08/30/2019 documented in this encounter Miscellaneous Notes * Telephone Encounter - Lena Dalton RN - 07/28/2019 0916 EST Medication(s) Requested: Annel [facility] Is patient out of medication? Unknown Last Refill Date: 05/26/18 for 1 year with RL Last Visit Date with Ordering Provider: 10/09/18 Next Non-Acute Visit Date Scheduled with Care Team: Yes. LENA DALTON RN 07/28/2019 9:16 documented in this encounter Plan of Treatment Upcoming Encounters Date Type Department Care Team (Late st Contact Info) Description 06/29/2024 14:15 EDT Office Visit [facility] Medicine [facility] [address] [place] [address] Jean Munoz MD [address] [place] [phone] documented as of this encounter Visit Diagnoses Diagnosis Moderate persistent asthma without complication- Primary Unspecified asthma Screening for osteoporosis- Primary Special screening for [...] End Da te montelukast (SINGULAIR) 10 mg tabletIndications:Moderate persistent asthma without complication Take 1 Tab by mouth daily. Reorder 05/26/2018 07/27/2019 documented as of this encounter Care Teams Anchorman Relationship Specialty Start Date End Date Jean Munoz MD [address] [place] [phone] PCP - General 12/31/08 Manny Rizzo MD [address] [place] [phone] 04/20/10 documented as of this encounter
--- OUTSIDE RECORDS SUMMARY | 2024-06-10 07:15 | XMS_ITS | Encounter Summary ---
Author Organization [facility] Address [address] [place] [address] Care Team Providers Care Office Secretary Name Role Phone Jean Munoz MD Primary Care Provider Manny Rizzo MD Unavailable Reason for Visit * Reason Onset Date Comments Letter for School/Work 09/07/2019 Encounter Details Date Type Department Care Team (Late st Contact Info) Description 09/07/2019 Telephone [facility] [address] [place] [address] Jean Munoz MD [address] [place] [phone] Letter for School/Work Social History Tobacco [...] Telephone Encounter - Jean Munoz MD - 09/07/2019 1212 EST Letter done * Telephone Encounter - Gabby Beltran - 09/07/2019 1141 EST Reason for Call: Letter for School/Work Summary/Symptoms: Pt calling, her electricity is going to be shut off today by 3pm if they do not receive a letter from PCP stating that it is medically necessary for power to stay on - letter pended. Fax to [facility] At : [phone] Onset and Duration? Appointment Offered? No Gabby Beltran 09/07/2019 11:41 documented in this encounter Plan of Treatment Upcoming Encounters Date Type Department Care Team (Late st Contact Info) Description 06/29/2024 14:15 EDT Office Visit [facility] [address] [place], [place] [phone] Jean Munoz MD [address] [place] [phone] documented as of this encounter Visit Diagnoses Not on filedocumented in this encounter Care Teams Office Secretary Relationship Specialty Start Date End Date Jean Munoz MD [address] [place] [phone] PCP - General 12/31/08 Manny Rizzo MD [address] [place] [phone] 04/20/10 documented as of this encounter
--- OUTSIDE RECORDS SUMMARY | 2024-06-10 07:15 | XMS_ITS | Encounter Summary ---
Author Organization [facility] Address [address] [place] [address] Care Team Providers Care Recreation Teacher Name Role Phone Jean Munoz MD Primary Care Provider Manny Rizzo MD Unavailable Reason for Visit * Reason Comments Other Encounter Details Date Type Department Care Team (Late st Contact Info) Description 11/10/2019 [facility] [address] [place] [address] Jean Munoz MD [address] [place] [phone] Other Social History Tobacco Use Types [...] mouth at bedtime 60 Tab 11/13/2019 12/06/2019 documented in this encounter Miscellaneous Notes * Telephone Encounter - Lizz Mccauley, RN - 11/13/2019 1129 EST Medication(s) Requested: Robaxin 500 [facility]erred [facility]acy: [facility] Is patient out of medication? Unknown Last Refill Date: 10/16/19 Last Visit Date with Ordering Provider: 10/09/19 Next Non-Acute Visit Date Scheduled with Care Team: 01/04/20 LIZZ MCCAULEY RN 11/13/2019 11:28 documented in this encounter Plan of Treatment Upcoming Encounters Date Type Department Care Team (Late st Contact Info) Description 06/29/2024 14:15 EDT Office Visit [facility] Family Medicine [facility] 3 [place] [address] Jean Munoz MD [address] [place] [phone] documented as of this encounter Visit Diagnoses [...] End Da te methocarbamol (ROBAXIN) 500 mg tabletIndications:Chron ic pain syndrome take 2 capsules by mouth at bedtime 10/16/2019 11/13/2019 documented as of this encounter Care Teams Recreation Teacher Relationship Specialty Start Date End Date Jean Munoz MD [address] [place] [phone] PCP - General 12/31/08 Manny Rizzo MD [address] [place] [phone] 04/20/10 documented as of this encounter
--- OUTSIDE RECORDS SUMMARY | 2024-06-10 07:15 | XMS_ITS | Encounter Summary ---
Author Organization [facility] Address [address] [place] [address] Care Team Providers Care Sales Operations Manager Name Role Phone Moi Munoz MD Primary Care Provider Manny Rizzo MD Unavailable Reason for Visit * Reason Onset Date Comments DME 08/28/2019 Encounter Details Date Type Department Care Team (Late st Contact Info) Description 08/28/2019 Telephone [facility] 3 [place] [address] Moi Munoz MD [address] [place] [phone] DME Social History Tobacco Use Types [...] as of this encounter Miscellaneous Notes * Addendum Note - Moi Munoz MD - 08/28/2019 1738 ESTAddended by: MOI MUNOZ on: 08/28/2019 17:38 Modules accepted: Orders * Telephone Encounter - Moi Munoz MD - 08/28/2019 1737 EST Order done * Addendum Note - Esme Laboy RN - 08/28/2019 1656 ESTAddended by: ESME LABOY on: 08/28/2019 16:56 Modules accepted: Orders * Telephone Encounter - Gabby Beltran - 08/28/2019 1623 EST Pt is without nebulizer Pls call pt when signed / faxed * Telephone Encounter - Donis Stewart - 08/28/2019 1245 EST Pt reports she also needs all the supplies that go with the nebulizer: air hoses, medicine cup, etc. Pt requesting script go to [facility]. * Telephone Encounter - Donis Stewart - 08/28/2019 1242 EST Reason for Call: DME Summary/Symptoms: Pt reports her nebulizer machine burned out over the weekend and she needs a new one. Wants script sent to [facility] on [address]. Donis Stewart 08/28/2019 12:43 documented in this encounter Plan of Treatment Upcoming Encounters Date Type Department Care Team (Late st Contact Info) Description 06/29/2024 14:15 EDT Office Visit [facility] [address] [place], [place] [phone] Moi Munoz MD [address] [place] [phone] documented as of this encounter [...] Orde red Date GENERIC DME ORDER 1 08/28/2019 documented in this encounter Care Teams Sales Operations Manager Relationship Specialty Start Date End Date Moi Munoz MD [address] [place] [phone] PCP - General 12/31/08 Manny Rizzo MD [address] [place] [address] 04/20/10 documented as of this encounter
--- OUTSIDE RECORDS SUMMARY | 2024-06-10 07:15 | XMS_ITS | Encounter Summary ---
Author Organization [facility] Address [address] [place] [address] Care Team Providers Care Production Operator Name Role Phone Jean Munoz MD Primary Care Provider Manny Rizzo MD Unavailable Reason for Visit * Reason Comments Other Encounter Details Date Type Department Care Team (Late st Contact Info) Description 08/12/2019 [facility] 3 [place] [address] Jean Munoz MD [address] [place] [phone] Other Social History Tobacco Use Types [...] [facility] 3 [place] [address] Jean Munoz MD [address] [place] [phone] documented as of this encounter Visit Diagnoses [...] colon documented in this encounter Care Teams Production Operator Relationship Specialty Start Date End Date Jean Munoz MD [address] [place] [phone] PCP - General 12/31/08 Manny Rizzo MD [address] [place] [phone] 04/20/10 documented as of this encounter
--- OUTSIDE RECORDS SUMMARY | 2024-06-10 07:15 | XMS_ITS | Encounter Summary ---
Author Organization [facility] Address [address] [place] [address] Care Team Providers Care Vp Cardiovascular Name Role Phone Jean Munoz MD Primary Care Provider Manny Rizzo MD Unavailable Afia Valle MD Unavailable [phone] SaloJesi shanks WORKERS COMPENSATION ADJUSTER Unavailable SaloJesi E WORKERS COMPENSATION ADJUSTER Unavailable Reason for Visit * Reason Onset Date Comments Medications Refill 11/14/2019 Encounter Details Date Type Department Care Team (Late st Contact Info) Description 11/14/2019 Refill [facility] - [address] [address] Laurel Simms MD [address] [place] [address], Level [address] [place] [address] Medications Refill Social History Tobacco Use Types [...] in the morning. 60 Tab 11/16/2019 12/11/2019 methylphenidate HCl (RITALIN;METHYLIN) 10 mg tablet Take one tab in the afternoon for narcolepsy. 30 Tab 11/16/2019 12/11/2019 documented in this encounter Miscellaneous Notes * Telephone Encounter - Corrina Ac RN - 11/14/2019 1500 EST Pt last seen by on 02/13/19. Refill requests for both methylphenidate prescriptions. [facility] Prescription Monitoring System query has been completed per the following requirement(s): Annual Verification. Pended orders to , provider consumer marketing analyst. * Telephone Encounter - Cory Carter - 11/14/2019 1456 EST Pt called in for Refills of the following RX(s): methylphenidate HCl (RITALIN;METHYLIN) 10 mg tablet methylphenidate HCl (RITALIN;METHYLIN) 20 mg tablet Pharmacy of choice is: [address] documented in this encounter Plan of Treatment Upcoming Encounters Date Type Department Care Team (Late st Contact Info) Description 06/29/2024 14:15 EDT Office Visit [facility] 3 [place] [address] Jean Munoz MD [address] [place] [phone] documented as of this encounter Visit Diagnoses Not on filedocumented in this encounter Discontinued Medications Medication Sig Discontinue Reason Start Date End Da te methylphenidate HCl (RITALIN;METHYLIN) 10 mg tablet Take one tab in the afternoon for narcolepsy. Reorder 10/19/2019 11/14/2019 methylphenidate HCl (RITALIN;METHYLIN) 20 mg tablet Take 2 tabs by mouth in the morning. Reorder 10/19/2019 11/14/2019 documented as of this encounter Additional Health Concerns Infection Onset Date Last Indicated Resolved Time R/O COVID-19 05/15/2022 05/15/2022 05/20/2022 22:1 6 EDT R/O COVID-19 11/14/2022 11/14/2022 11/14/2022 19:1 6 EST documented as of this encounter Care Teams Vp Cardiovascular Relationship Specialty Start Date End Date Jean Munoz MD [address] [place] [phone] PCP - General 12/31/08 Manny Rizzo MD [address] [place] [phone] 04/20/10 Afia Valle MD [address] [place] [address] 2 [place] [phone] Care Team Radiation Oncology 07/02/21 Jesi Leong, [facility] 3 [place] [phone] Animal Breeder 12/24/21 09/20/22 Jesi Leong [facility] 3 [place] [phone] Behavioral Health Animal BreederSales Department Supervisor Care 10/19/22 01/23/24 documented as of this encounter
--- OUTSIDE RECORDS SUMMARY | 2024-06-10 07:15 | XMS_ITS | Encounter Summary ---
Author Organization [facility] Address [address] [place] [address] Care Team Providers Care Recovery Operator Helper Name Role Phone Jean Munoz MD Primary Care Provider Manny Rizzo MD Unavailable Afia Valle MD Unavailable Jesi Leong [employer]LECTR[employer]OR[employer] II ASSEMBLER Unavailable SaloJesi shanks ELECTRICAL ACCESSORIES II ASSEMBLER Unavailable Reason for Visit * Reason Comments Other Encounter Details Date Type Department Care Team (Late st Contact Info) Description 10/13/2019 Refill [facility] Family Medicine [facility] [address] [place], [place] [phone] Jean Munoz MD [address] [place] [phone] Other Social History Tobacco Use Types [...] 500 mg tabletIndications:Chronic pain syndrome take 2 capsules by mouth at bedtime 60 Tab 10/16/2019 11/13/2019 documented in this encounter Miscellaneous Notes * Telephone Encounter - Jean Munoz MD - 10/16/2019 1819 EST escript done, please notify patient, thanks * Telephone Encounter - Liset Gonzalez RN - 10/16/2019 1456 EST Last rf for Robaxin 500 mg take (2) tabs PO at HS #60 with 1 rf on 08/18/19 Last OV with RL 10/09/19 (muscle spasm + 14 more) Recheck 12 weeks documented in this encounter Plan of Treatment Upcoming Encounters Date Type Department Care Team (Late st Contact Info) Description 06/29/2024 14:15 EDT Office Visit [facility] 3 [place] [address] Jean Munoz MD [address] [place] [phone] documented as of this encounter [...] take 2 tablets by mouth at bedtime 08/18/2019 10/16/2019 documented as of this encounter Additional Health Concerns Infection Onset Date Last Indicated Resolved Time R/O COVID-19 05/15/2022 05/15/2022 05/20/2022 22:1 6 EDT R/O COVID-19 11/14/2022 11/14/2022 11/14/2022 19:1 6 EST documented as of this encounter Care Teams Recovery Operator Helper Relationship Specialty Start Date End Date Jean Munoz MD [address] [place] [phone] PCP - General 12/31/08 Manny Rizzo MD [facility] [place] [phone] 04/20/10 Afia Valle MD [address] [place] [address] 2 [place] [phone] Care Team Radiation Oncology 07/02/21 Jesi Leong LICSW [address] [place] [phone] Vacuum Tank Tender 12/24/21 09/20/22 Jesi Leong LICSW [address] [place] [address] Behavioral Health Vacuum Tank TenderAccount Advisor Care 10/19/22 01/23/24 documented as of this encounter
--- OUTSIDE RECORDS SUMMARY | 2024-06-10 07:15 | XMS_ITS | Encounter Summary ---
Author Organization [facility] Address [address] [place] [address] Care Team Providers Care Hairspring Vibrator Name Role Phone Jean Munoz MD Primary Care Provider Manny Rizzo MD Unavailable Afia Valle MD Unavailable SaloJesi shanks SPORTS JOURNALIST Unavailable SaloJesi E SPORTS JOURNALIST Unavailable Reason for Visit * Reason Onset Date Comments Medications Refill 06/27/2019 Encounter Details Date Type Department Care Team (Late st Contact Info) Description 06/27/2019 Refill [facility] [place] [address] [place] [phone] Bassam Euceda MD [address] [facility]. [address] [place] [phone] Medications Refill Social History Tobacco Use Types [...] by mouth in the morning. 60 Tab 06/29/2019 07/25/2019 methylphenidate HCl (RITALIN;METHYLIN) 10 mg tablet Take one tab in the afternoon for narcolepsy. 30 Tab 06/29/2019 07/25/2019 documented in this encounter Miscellaneous Notes * Telephone Encounter - Corrina Ac RN - 06/27/2019 0917 EDT Pt last seen by on 02/14/19. Refill requests for both ritalin. [facility] [place] Prescription Monitoring System query has been completed per the following requirement(s): Annual Verification. Both last filled on 06/01/19. Orders pended to . * Telephone Encounter - Cory Carter - 06/27/2019 0979 EDT Pt called in for refills of: methylphenidate HCl (RITALIN;METHYLIN) 10 mg tablet methylphenidate HCl (RITALIN;METHYLIN) 20 mg tablet Pharmacy is [facility] To RN documented in this encounter Plan of Treatment Upcoming Encounters Date Type Department Care Team (Late st Contact Info) Description 06/29/2024 14:15 EDT Office Visit [facility] 3 [place] [address] Jean Munoz MD [address] [place] [phone] documented as of this encounter Visit Diagnoses Not on filedocumented in this encounter Discontinued Medications Medication Sig Discontinue Reason Start Date End Da te methylphenidate HCl (RITALIN;METHYLIN) 10 mg tablet Take one tab in the afternoon for narcolepsy. Reorder 06/01/2019 06/27/2019 methylphenidate HCl (RITALIN;METHYLIN) 20 mg tablet Take 2 tabs by mouth in the morning. Reorder 06/01/2019 06/27/2019 documented as of this encounter Additional Health Concerns Infection Onset Date Last Indicated Resolved Time R/O COVID-19 05/15/2022 05/15/2022 05/20/2022 22:1 6 EDT R/O COVID-19 11/14/2022 11/14/2022 11/14/2022 19:1 6 EST documented as of this encounter Care Teams Hairspring Vibrator Relationship Specialty Start Date End Date Jean Munoz MD [address] [place] [phone] PCP - General 12/31/08 Manny Rizzo MD [address] [place] [phone] 04/20/10 Afia Valle MD [address] [place] [address] 2 [place] [phone] MD Care Team Radiation Oncology 07/02/21 Jesi Leong [facility] 3 [place] [phone] Shaker Screen Operator 12/24/21 09/20/22 Jesi Leong [facility] 3 [place] [phone] Behavioral Health Shaker Screen OperatorTour Leader Care 10/19/22 01/23/24 documented as of this encounter
--- OUTSIDE RECORDS SUMMARY | 2024-06-10 07:15 | XMS_ITS | Encounter Summary ---
Author Organization [facility] Address [address] [place] [address] Care Team Providers Care Bag Shaker Name Role Phone Jean Munoz MD Primary Care Provider Manny Rizzo MD Unavailable Reason for Visit * Reason Onset Date Comments Medication Problem 10/16/2019 Encounter Details Date Type Department Care Team (Late st Contact Info) Description 10/16/2019 Telephone [facility] 3 [place] [address] Jean Munoz MD [address] [place] [phone] Medication Problem Social History Tobacco Use [...] For rosacea 90 Tab 3 10/16/2019 10/21/2020 documented in this encounter Miscellaneous Notes * Telephone Encounter - Jean Munoz MD - 10/16/2019 1221 EST escript done, please notify patient, thanks * Telephone Encounter - Carmita Franklin - 10/16/2019 1102 EST Reason for Call: Medication Questions Medication: doxycycline (VIBRAMYCIN) 100 mg capsule Question: Pt requesting tabs instead of Capsules, easier for Pt to swallow.Needs a new script. documented in this encounter Plan of Treatment Upcoming Encounters Date Type Department Care Team (Late st Contact Info) Description 06/29/2024 14:15 EDT Office Visit [facility] Medicine [facility] 3 [place], [place] [phone] Jean Munoz MD [address] [place] [phone] documented as of this encounter [...] Reason Start Date End Da te doxycycline (VIBRAMYCIN) 100 mg capsuleIndications:Rosac ea Take 1 Cap by mouth daily. For rosacea Alternate therapy 08/30/2019 10/16/2019 documented as of this encounter Care Teams Bag Shaker Relationship Specialty Start Date End Date Jean Munoz MD [address] [place] [phone] PCP - General 12/31/08 Manny Rizzo MD [address] [place] [phone] 04/20/10 documented as of this encounter
--- OUTSIDE RECORDS SUMMARY | 2024-06-10 07:16 | XMS_ITS | Encounter Summary ---
Author Organization [facility] Address [address] [place] [address] Care Team Providers Care Brand Ambassador Name Role Phone Jean Munoz MD Primary Care Provider Manny Rizzo MD Unavailable Afia Valle MD Unavailable Jesi Leong TRANSPORTATION PLANNER Unavailable SaloJesi shanks TRANSPORTATION PLANNER Unavailable Reason for Visit * Reason Onset Date Comments Medications Refill 04/03/2019 Encounter Details Date Type Department Care Team (Late st Contact Info) Description 04/03/2019 Refill [facility] Sleep Program - [address] [address] Tiana Bacon [address] [place] [address] Medications Refill Social History Tobacco Use Types [...] by mouth in the morning. 60 Tab 04/05/2019 05/04/2019 methylphenidate HCl (RITALIN;METHYLIN) 10 mg tablet Take one tab in the afternoon for narcolepsy. 30 Tab 04/05/2019 05/04/2019 documented in this encounter Miscellaneous Notes * Telephone Encounter - Cory Carter - 04/05/2019 1536 EDT Pt called for status of refill order placed 04/03 - Advised that it is being processed and should bedone very soon - Pt advised that she is supposed to take a dose at 8am on 04/06 and she is out of med. Advised I would attempt to get a msg. To Med. Team to expedite as much as possible - RX going to [facility] * Telephone Encounter - Janette Buck, RN - 04/05/2019 1325 EDT Per VPMS Methylphenidate last filled 03-07-19 Last office visit 02-14-19 Next office visit 02-20-20 Methylphenidate 20 mg and [address] Euceda * Telephone Encounter - Shaista Forde - 04/05/2019 1142 EDT PT called to check status of refill request, please call her as she is out of medications She can be reached @ [phone] * Telephone Encounter - Britney Tai - 04/03/2019 1632 EDT Medication Refill methylphenidate HCl (RITALIN;METHYLIN) 20 mg tablet - Take 2 tabs by mouth in the morning ?? methylphenidate HCl (RITALIN;METHYLIN) 10 mg tablet - Take one tab in the afternoon for narcolepsy. ? Pharmacy (reconcile pharmacy list): [id number] - [place], [place] - [address] Is patient out of medication? No Britney Tai 04/03/201916:32 documented in this encounter Plan of Treatment Upcoming Encounters Date Type Department Care Team (Late st Contact Info) Description 06/29/2024 14:15 EDT Office Visit [facility] Medicine [facility] [address] [place], [place] [phone] Jean Munoz MD [address] [place] [address] documented as of this encounter Visit Diagnoses Not on filedocumented in this encounter Discontinued Medications Medication Sig Discontinue Reason Start Date End Da te methylphenidate HCl (RITALIN;METHYLIN) 10 mg tablet Take one tab in the afternoon for narcolepsy. Reorder 03/07/2019 04/05/2019 methylphenidate HCl (RITALIN;METHYLIN) 20 mg tablet Take 2 tabs by mouth in the morning. Reorder 03/07/2019 04/05/2019 documented as of this encounter Additional Health Concerns Infection Onset Date Last Indicated Resolved Time R/O COVID-19 05/15/2022 05/15/2022 05/20/2022 22:1 6 EDT R/O COVID-19 11/14/2022 11/14/2022 11/14/2022 19:1 6 EST documented as of this encounter Care Teams Brand Ambassador Relationship Specialty Start Date End Date Jean Munoz MD [address] [place] [address] PCP - General 12/31/08 Manny Rizzo MD [address] [place] [phone] 04/20/10 Afia Valle MD [address] [place] [address] 2 [place] [phone] Care Team Radiation Oncology 07/02/[address] [facility] [address] [place] [address] Instructional Design Technologist 12/24/21 09/20/[address] [facility] 3 [place] [address] Behavioral Health Instructional Design TechnologistBender Machine Operator Care 10/19/22 01/23/24 documented as of this encounter
--- OUTSIDE RECORDS SUMMARY | 2024-06-10 07:16 | XMS_ITS | Encounter Summary ---
Author Organization [facility] Address [address] [place] [address] Care Team Providers Care Information Assurance Specialist Name Role Phone Jean Munoz MD Primary Care Provider Manny Rizzo MD Unavailable Reason for Visit * Reason Onset Date Comments Other Medications Refill 05/25/2019 Encounter Details Date Type Department Care Team (Late st Contact Info) Description 05/25/2019 Refill [facility] Pulmonology & Critical Care - [address] [phone] John Mathis MD [address] [place] [address], [address] [place] [address] Other; Medications Refill Social History Tobacco Use [...] encounter Miscellaneous Notes * Telephone Encounter - Nakita Esteban, RT - 05/25/2019 1241 EDT Requested Prescriptions Refused Prescriptions Disp Refills ??? ADVAIR HFA 115-21 mcg/actuation inhaler [Pharmacy Med Name: Advair HFA Inhalation Aerosol 115-21 MCG/ACT] 12 g 3 Sig: INHALE ONE PUFF BY MOUTH TWICE A DAY DIRECTED Refused By: NAKITA ESTEBAN Reason for Refusal: Patient no longer under Prescriber care Last seen 2016. documented in this encounter Plan of Treatment Upcoming Encounters Date Type Department Care Team (Late st Contact Info) Description 06/29/2024 14:15 EDT Office Visit [facility] [address] [place], [place] [phone] Jean Munoz MD [address] [place] [phone] documented as of this encounter Visit Diagnoses Diagnosis Moderate persistent asthma, unspecified whether complicated- Primary Screening for osteoporosis- Primary Special screening for osteoporosis Primary narcolepsy without cataplexy Chronic pain syndrome Chronic low back pain Lumbago Chronic use of opiate for therapeutic purpose Pain medication agreement Encounter for long-term (current) use of other medications Screen for colon cancer Special screening for malignant neoplasms, colon documented in this encounter Care Teams Information Assurance Specialist Relationship Specialty Start Date End Date Jean Munoz MD [address] [place] [address] PCP - General 12/31/08 Manny Rizzo MD [address] [place] [phone] 04/20/10 documented as of this encounter
--- OUTSIDE RECORDS SUMMARY | 2024-06-10 07:16 | XMS_ITS | Encounter Summary ---
Author Organization [facility] Address [address] [place] [address] Care Team Providers Care Registrar Museum Name Role Phone Jean Munoz MD Primary Care Provider Manny Rizzo MD Unavailable Reason for Visit * Reason Onset Date Comments Medications Refill 02/15/2019 Encounter Details Date Type Department Care Team (Late st Contact Info) Description 02/15/2019 Refill [facility] [address] [place], [place] [phone] Jean Munoz MD [address] [place] [address] Medications Refill Social History Tobacco [...] BY MOUTH DAILY NEEDED for nausea 30 Tab 02/15/2019 04/28/2019 documented in this encounter Miscellaneous Notes * Telephone Encounter - Gina Lawrence - 02/15/2019 0956 EDT Medication(s) Requested: Ondansetron Preferred Pharmacy: [facility] Is patient out of medication? Unknown Last Refill Date: 04/04/18 Last Visit Date with Ordering Provider: 02/02/19 Next Non-Acute Visit Date Scheduled with Care Team: Yes. 02/22/19 Gina Lawrence 02/15/2019 9:57 documented in this encounter Plan of Treatment Upcoming Encounters Date Type Department Care Team (Late st Contact Info) Description 06/29/2024 14:15 EDT Office Visit [facility] Medicine [facility] [address] [place] [address] Jean Munoz MD [address] [place] [address] documented as of this encounter [...] BY MOUTH DAILY NEEDED for nausea Reorder 04/04/2018 02/15/2019 documented as of this encounter Care Teams Registrar Museum Relationship Specialty Start Date End Date Jean Munoz MD [address] [place] [phone] PCP - General 12/31/08 Manny Rizzo MD [address] [place] [phone] 04/20/10 documented as of this encounter
--- OUTSIDE RECORDS SUMMARY | 2024-06-10 07:16 | XMS_ITS | Encounter Summary ---
Author Organization [facility] Address [address] [place] [address] Care Team Providers Care Material Handler Loader Name Role Phone Jean Munoz MD Primary Care Provider Manny Rizzo MD Unavailable Afia Valle MD Unavailable SaloJesi shanks EXTRACTOR FILLER Unavailable SaloJesi shanks E EXTRACTOR FILLER Unavailable Reason for Visit * Reason Onset Date Comments Medications Refill 05/04/2019 Encounter Details Date Type Department Care Team (Late st Contact Info) Description 05/04/2019 Refill [facility] Sleep Program - [address] [place] [address] [place] [phone] Bassam Euceda MD [address] [facility]. [address] [place] [phone] Medications Refill Social History Tobacco Use Types [...] by mouth in the morning. 60 Tab 05/04/2019 05/30/2019 methylphenidate HCl (RITALIN;METHYLIN) 10 mg tablet Take one tab in the afternoon for narcolepsy. 30 Tab 05/04/2019 05/30/2019 documented in this encounter Miscellaneous Notes * Telephone Encounter - Janette Buck RN - 05/04/2019 1650 EDT Last office visit 02-14-19 Next office visit 02-20-20 [facility] [place] [facility] query has been completed per the following requirement(s): Methylphenidate 20 mg (quantity 20) and 10 mg (quantity 30) tablets last filled on 04-05-[address] Euceda * Telephone Encounter - Cory Carter - 05/04/2019 1302 EDT Pt called for two refills on Meds: methylphenidate HCl (RITALIN;METHYLIN) 20 mg tablet - 60 tabs methylphenidate HCl (RITALIN;METHYLIN) 10 mg tablet - 30 tabs Pharmacy is [address] [place], [place]. Routed to RN for review and MD signoff. documented in this encounter Plan of Treatment Upcoming Encounters Date Type Department Care Team (Late st Contact Info) Description 06/29/2024 14:15 EDT Office Visit [facility] [address] [place], [place] [phone] Jean Munoz MD [address] [place] [phone] documented as of this encounter Visit Diagnoses Not on filedocumented in this encounter Discontinued Medications Medication Sig Discontinue Reason Start Date End Da te methylphenidate HCl (RITALIN;METHYLIN) 10 mg tablet Take one tab in the afternoon for narcolepsy. Reorder 04/05/2019 05/04/2019 methylphenidate HCl (RITALIN;METHYLIN) 20 mg tablet Take 2 tabs by mouth in the morning. Reorder 04/05/2019 05/04/2019 documented as of this encounter Additional Health Concerns Infection Onset Date Last Indicated Resolved Time R/O COVID-19 05/15/2022 05/15/2022 05/20/2022 22:1 6 EDT R/O COVID-19 11/14/2022 11/14/2022 11/14/2022 19:1 6 EST documented as of this encounter Care Teams Material Handler Loader Relationship Specialty Start Date End Date Jean Munoz MD [address] [place] [address] PCP - General 12/31/08 Manny Rizzo MD [address] [place] [phone] 04/20/10 Afia Valle MD [address] [facility] 2 [place] [phone] MD Care Team Radiation Oncology 07/02/21 Jesi Leong EXTRACTOR FILLER [address] [place] [phone] Senior Drupal Developer 12/24/21 09/20/22 Jesi Leong EXTRACTOR FILLER [address] [place] [phone] Behavioral Health Senior Drupal DeveloperStemhole Borer Care 10/19/22 01/23/24 documented as of this encounter
--- OUTSIDE RECORDS SUMMARY | 2024-06-10 07:16 | XMS_ITS | Encounter Summary ---
Author Organization [facility] Address [address] [place] [address] Care Team Providers Care Shank Scourer Name Role Phone Jean Munoz MD Primary Care Provider Manny Rizzo MD Unavailable Reason for Visit * Reason Comments Other Encounter Details Date Type Department Care Team (Late st Contact Info) Description 04/03/[address] [phone] Fozia Ojeda MD Other Social History Tobacco Use Types Packs/Day [...] tablet by mouth as needed for migraine. Daily limit 2 tablets 9 Tab 04/04/2019 05/05/2019 documented in this encounter Miscellaneous Notes * Telephone Encounter - Yadira Mccauley RN - 04/04/2019 1218 EDT Images from the original note were not included. Jean Munoz MD ??[facility] Rn 2 minutes ago (12:16) OK to renew Imitrex * Telephone Encounter - Yadira Mccauley RN - 04/04/2019 0924 EDT Medication(s) Requested: imitrex 50 [facility]erred Pharmacy: [facility] Is patient out of medication? Unknown Last Refill Date: 03/07/19 Last Visit Date with Ordering Provider: 02/02/19 Next Non-Acute Visit Date Scheduled with Care Team: 04/25/19 Yadira Mccauley RN 04/04/2019 9:24 documented in this encounter Plan of Treatment Upcoming Encounters Date Type Department Care Team (Late st Contact Info) Description 06/29/2024 14:15 EDT Office Visit [facility] Family Medicine [facility] 3 [place] [address] Jean Munoz MD [address] [place] [address] documented as of this encounter [...] End Da te sumatriptan (IMITREX) 50 mg tabletIndications:Migrai ne without status migrainosus, not intractable, unspecified migraine type take 1 tablet by mouth as needed for migraine. daily limit: 2 tablets Reorder 03/07/2019 04/03/2019 documented as of this encounter Care Teams Shank Scourer Relationship Specialty Start Date End Date Jean Munoz MD [address] [place] [address] PCP - General 12/31/08 Manny Rizzo MD [address] [place] [address] 04/20/10 documented as of this encounter
--- OUTSIDE RECORDS SUMMARY | 2024-06-10 07:16 | XMS_ITS | Encounter Summary ---
Author Organization [facility] Address [address] [place] [address] Care Team Providers Care Otr Refrigerated Cdl Truck Driver Name Role Phone Jean Munoz MD Primary Care Provider Mnany Rizzo MD Unavailable Afia Valle MD Unavailable Reason for Visit * Reason Onset Date Comments Appointment Related 02/08/2019 Encounter Details Date Type Department Care Team (Late st Contact Info) Description 02/08/2019 Telephone [facility] Sleep Program - [address] [address] Tiana Bacon [facility] [place] [address] Appointment Related Social History Tobacco Use Types [...] * Telephone Encounter - Shaista Forde - 02/14/2019 1250 EDT Pt called and is running about 10-15 minutes late, called to inform us. Let her know if she is muchlater, she may not get seen * Telephone Encounter - Shaista Forde - 02/08/2019 1422 EDT Called pt to remind of 6.4.19 appt @ 1300 Pt aware and attending documented in this encounter Plan of Treatment Upcoming Encounters Date Type Department Care Team (Late st Contact Info) Description 06/29/2024 14:15 EDT Office Visit [facility] 3 [place] [address] Jean Munoz MD [address] [place] [address] documented as of this encounter Visit Diagnoses Not on filedocumented in this encounter Care Teams Otr Refrigerated Cdl Truck Driver Relationship Specialty Start Date End Date Jean Munoz MD [address] [place] [address] PCP - General 12/31/08 Manny Rizzo MD [address] [place] [address] 04/20/10 Afia Valle MD [address] [place] [address], [address] [place] [address] MD Care Team Radiation Oncology 07/02/21 documented as of this encounter
--- OUTSIDE RECORDS SUMMARY | 2024-06-10 07:16 | XMS_ITS | Encounter Summary ---
Author Organization [facility] Address [address] [place] [address] Care Team Providers Care Bedspread Seamer Name Role Phone Jean Munoz MD Primary Care Provider Manny Rizzo MD Unavailable Reason for Visit * Reason Onset Date Comments Prior Auth, Medication 05/31/2019 fexofenad ine Encounter Details Date Type Department Care Team (Late st Contact Info) Description 05/31/[address] [address] Kaitlyn Montero LPN [address] [place] [address] Prior Auth, Medication (fexofenadine) Social History Tobacco Use Types Packs/Day Years [...] Telephone Encounter - Teetee Marshall LPN - 06/01/2019 1333 EDT Medication: Fexofenadine Insurance Co: Medicaid Approval # (if applicable): [id number] Approval dates: 05/31/2019-05/31/2020 Name of Pharmacy notified: [facility] * Telephone Encounter - Kaitlyn Montero LPN - 05/31/2019 1513 EDT [place] for Fexofenadine. Waiting for response. Kaitlyn Montero LPN documented in this encounter Plan of Treatment Upcoming Encounters Date Type Department Care Team (Late st Contact Info) Description 06/29/2024 14:15 EDT Office Visit [facility] Medicine [facility] 3 [place] [address] Jean Munoz MD [address] [place] [address] documented as of this encounter Visit Diagnoses Not on filedocumented in this encounter Care Teams Bedspread Seamer Relationship Specialty Start Date End Date Jean Munoz MD [address] [place] [address] PCP - General 4/20/09 Manny Rizzo MD [facility]5 [place] [address] 04/20/10 documented as of this encounter
--- OUTSIDE RECORDS SUMMARY | 2024-06-10 07:16 | XMS_ITS | Encounter Summary ---
Author Organization [facility] Address [address] [place] [address] Care Team Providers Care Railway Patrol Officer Name Role Phone Jean Munoz MD Primary Care Provider Manny Rizzo MD Unavailable Reason for Visit * Reason Onset Date Comments Prior Auth, Medication 02/03/2019 Spiriva Encounter Details Date Type Department Care Team (Late st Contact Info) Description 02/03/[address] [facility] [address] [place] [address] Kaitlyn Montero LPN [address] [place] [address] Prior Auth, Medication (Spiriva ) Social History Tobacco Use Types Packs/Day [...] te tiotropium bromide (SPIRIVA RESPIMAT) 1.25 mcg/actuation inhalerIndications:Chroni c obstructive pulmonary disease, unspecified COPD type ([facility]) INHALE TWO PUFFS (2.5 mcg) daily as directed 12 g 3 02/07/2019 02/01/2020 documented in this encounter Miscellaneous Notes * Telephone Encounter - Kaitlyn Montero LPN - 02/07/2019 1021 EDT Medication:Spiriva Insurance Co: [place] Medicaid Approval # (if applicable): [id number] Approval dates: 02/03/2019-02/04/2020 [facility] * Telephone Encounter - Kaitlyn Montero LPN - 02/03/2019 1522 EDT PA sent to insurance ([place] Medicaid) for Spiriva inhaler. Waiting for response. Kaitlyn Montero LPN documented in this encounter Plan of Treatment Upcoming Encounters Date Type Department Care Team (Late st Contact Info) Description 06/29/2024 14:15 EDT Office Visit [facility] Family Medicine [facility] 3 [place] [address] Jean Munoz MD [address] [place] [address] documented as of this encounter Visit Diagnoses Diagnosis Chronic obstructive pulmonary disease, unspecified COPD type ([facility])- Primary Screening for osteoporosis- Primary Special screening [...] End Da te SPIRIVA RESPIMAT 1.25 mcg/actuation inhalerIndications:Chron ic obstructive pulmonary disease, unspecified COPD type ([facility]) INHALE TWO PUFFS (2.5 mcg) daily as directed Reorder 11/09/2018 02/07/2019 documented as of this encounter Care Teams Railway Patrol Officer Relationship Specialty Start Date End Date Jean Munoz MD [address] [place] [phone] PCP - General 12/31/08 Manny Rizzo MD [address] [place] [address] 04/20/10 documented as of this encounter
--- OUTSIDE RECORDS SUMMARY | 2024-06-10 07:16 | XMS_ITS | Encounter Summary ---
Author Organization [facility] Address [address] [place] [address] Care Team Providers Care Lime Vat Tender Name Role Phone Jean Munoz MD Primary Care Provider Manny Rizzo MD Unavailable Reason for Visit * Reason Comments Other Encounter Details Date Type Department Care Team (Late st Contact Info) Description 05/25/2019 [facility] 3 [place] [address] Jean Munoz MD [address] [place] [address] Other Social History Tobacco Use Types [...] at bedtime 60 Tab 2 05/26/2019 08/18/2019 documented in this encounter Miscellaneous Notes * Telephone Encounter - Liset Gonzalez RN - 05/26/2019 1440 EDT Last rf for Methocarbamol 500 mg Take (2) tabs PO at HS #60 with 3 rf on 02/02/19 Last OV with RL 04/25/19 (chronic pain) Next OV with RL 05/30/19 documented in this encounter Plan of Treatment Upcoming Encounters Date Type Department Care Team (Late st Contact Info) Description 06/29/2024 14:15 EDT Office Visit [facility] 3 [place], [place] [phone] Jean Munoz MD [address] [place] [address] documented as of this encounter [...] methocarbamol (ROBAXIN) 500 mg tabletIndications:Chronic pain syndrome Take 2 Tabs by mouth at bedtime. Reorder 02/02/2019 05/25/2019 documented as of this encounter Care Teams Lime Vat Tender Relationship Specialty Start Date End Date Jean Munoz MD [address] [place] [address] PCP - General 12/31/08 Manny Rizzo MD [address] [place] [phone] 04/20/10 documented as of this encounter
--- OUTSIDE RECORDS SUMMARY | 2024-06-10 07:16 | XMS_ITS | Encounter Summary ---
Author Organization [facility] Address [address] [place] [address] Care Team Providers Care Service Porter Name Role Phone Jean Munoz MD Primary Care Provider Manny Rizzo MD Unavailable Encounter Details Date Type Department Care Team (Late st Contact Info) Description 04/25/2019 Results Only [facility] Family Medicine [facility] 3 [place] [address] Jean Munoz MD [address] [place] [address] Social History Tobacco Use Types [...] EDT Office Visit [facility] 3 [place] [address] Jean Munoz MD [address] [place] [address] documented as of this encounter Procedures Procedure Name Priority Date/Time Associated Diagnosis Comments POLYSUBSTANCE USE PANEL, URINE Routine 04/25/2019 13:14 EDT documented in this encounter Results * (ABNORMAL) POLYSUBSTANCE USE PANEL, URINE (04/25/2019 13:14 EDT) Heroin Metabolite (6-AM) Screen NEGATIVE <10.0 ng/mL 04/26/2019 12:08 [facility] Methadone Met Scn, U NEGATIVE <100.0 ng/mL 04/26/2019 12:08 [facility] Fentanyl Screen, U NEGATIVE <1 ng/mL 04/26/2019 12:08 [facility] Opioids Screen, U NEGATIVE <300 ng/mL 04/26/2019 12:08 [facility] Oxycodone Screen, U NEGATIVE <100.0 ng/mL 04/26/2019 12:08 [facility] Buprenorphine Scn, U NEGATIVE <5.0 ng/mL 04/26/2019 12:08 [facility] Benzodiazep Scn, U >5,000(H) <200 ng/mL 04/26/2019 12:08 [facility] Alcohol Met Scn, U NEGATIVE <500 ng/mL 04/26/2019 12:08 [facility]T [facility] Zolpidem Screen, U NEGATIVE <20 ng/mL 04/26/2019 12:08 EDT [facility] Amphetamines Scn, U NEGATIVE <500 ng/mL 04/26/2019 12:08 EDT [facility] Cocaine Metab Scn, U NEGATIVE <150 ng/mL 04/26/2019 12:08 EDT [facility] Ecstasy Screen, U NEGATIVE <500 ng/mL 04/26/2019 12:08 EDT [facility] Barbiturates Scn, U NEGATIVE <200 ng/mL 04/26/2019 12:08 EDT [facility] Comment: Performed by: [employer], [address] [place] [address], [facility], [place] [address] URINE / Unknown 04/25/2019 1 3:14 EDT 04/25/2019 20:37 EDT Jean Munoz MD GEN LAB UNIT CO LLECT ORDERABLES [facility] [address] [place] [address] documented in this encounter Visit Diagnoses Not on filedocumented in this encounter Care Teams Service Porter Relationship Specialty Start Date End Date Jean Munoz MD [address] [place] [phone] PCP - General 12/31/08 Manny Rizzo MD [address] [place] [address] 04/20/10 documented as of this encounter
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
--- OUTSIDE RECORDS SUMMARY | 2024-06-10 07:16 | XMS_ITS | Encounter Summary ---
Author Organization [facility] Address [address] [place] [address] Care Team Providers Care Monument Mason Name Role Phone Jean Munoz MD Primary Care Provider Manny Rizzo MD Unavailable Reason for Visit * Reason Onset Date Comments Medications Refill 04/04/2019 Encounter Details Date Type Department Care Team (Late st Contact Info) Description 04/04/2019 [address] [facility] [address] [place], [place] [phone] Jean Munoz MD [address] [place] [address] Medications Refill Social History Tobacco [...] Da te levalbuterol (XOPENEX HFA) 45 mcg/actuation inhalerIndications:Moderat e persistent asthma without complication INHALE TWO PUFFS BY MOUTH EVERY SIX HOURS NEEDED 45 g 2 04/04/2019 04/25/2019 documented in this encounter Miscellaneous Notes * Telephone Encounter - Cat Armijo - 04/04/2019 1304 EDT Medication(s) Requested: xopenex- she is using it more due to the weather/humidity. 4-5x/day [facility] Is patient out of medication? Yes Last Refill Date: 2017 Last Visit Date with Ordering Provider: 05/26/18 Next Non-Acute Visit Date Scheduled with Care Team: Yes. 04/25/19 Cat Armijo 04/04/2019 13:04 documented in this encounter Plan of Treatment Upcoming Encounters Date Type Department Care Team (Late st Contact Info) Description 06/29/2024 14:15 EDT Office Visit [facility] Medicine [facility] [address] [place] [address] Jean Munoz MD [address] [place] [address] documented as of this encounter [...] colon documented in this encounter Care Teams Monument Mason Relationship Specialty Start Date End Date Jean Munoz MD [address] [place] [address] PCP - General 12/31/08 Manny Rizzo MD [address] [place] [phone] 04/20/10 documented as of this encounter
--- OUTSIDE RECORDS SUMMARY | 2024-06-10 07:16 | XMS_ITS | Encounter Summary ---
Author Organization [facility] Address [address] [place] [address] Care Team Providers Care Managed Care Analyst Name Role Phone Jean Munoz MD Primary Care Provider Manny Rizzo MD Unavailable Reason for Visit * Reason Comments Other Encounter Details Date Type Department Care Team (Late st Contact Info) Description 05/22/2019 [facility] Pulmonology & Critical Care - [facility] [address] [place], [place] [address] John Mathis MD [address] [place] [address], [address] [place] [address] Other Social History Tobacco Use Types Packs/Day [...] encounter Miscellaneous Notes * Telephone Encounter - Garett Plummer RT - 05/24/2019 0823 EDT Requested Prescriptions Refused Prescriptions Disp Refills ??? ADVAIR HFA 115-21 mcg/actuation inhaler [Pharmacy Med Name: Advair HFA Inhalation Aerosol 115-21 MCG/ACT] 12 g 3 Sig: INHALE ONE PUFF BY MOUTH TWICE A DAY DIRECTED Refused By: GARETT PLUMMER Reason for Refusal: Appt required, please call patient [id number] [facility] [address] LMOM for pharmacy to re-route to patient's PCP as it has been > 1 year since last pulm appt. documented in this encounter Plan of Treatment Upcoming Encounters Date Type Department Care Team (Late st Contact Info) Description 06/29/2024 14:15 EDT Office Visit [facility] Medicine [facility] [address] [place] [address] Jean Munoz MD [address] [place] [address] documented as of this encounter [...] colon documented in this encounter Care Teams Managed Care Analyst Relationship Specialty Start Date End Date Jean Munoz MD [address] [place] [address] PCP - General 12/31/08 Manny Rizzo MD [address] [place] [phone] 04/20/10 documented as of this encounter
--- OUTSIDE RECORDS SUMMARY | 2024-06-10 07:16 | XMS_ITS | Encounter Summary ---
Author Organization [facility] Address [address] [place] [address] Care Team Providers Care Senior Environmental Practice Leader Name Role Phone Jean Munoz MD Primary Care Provider Manny Rizzo MD Unavailable Afia Valle MD Unavailable SaloJesi shanks BOW MAKER CUSTOM Unavailable SaloJesi shanks E BOW MAKER CUSTOM Unavailable Reason for Visit * Reason Onset Date Comments Medications Refill 05/29/2019 Encounter Details Date Type Department Care Team (Late st Contact Info) Description 05/29/2019 Refill [facility] [place] [address] [place] [phone] Bassam Euceda MD [address] [facility]. [address] [place] [phone] Medications Refill Social History Tobacco Use Types [...] by mouth in the morning. 60 Tab 06/01/2019 06/27/2019 methylphenidate HCl (RITALIN;METHYLIN) 10 mg tablet Take one tab in the afternoon for narcolepsy. 30 Tab 06/01/2019 06/27/2019 documented in this encounter Miscellaneous Notes * Telephone Encounter - Corrina Ac RN - 05/30/2019 9192 EDT Pt last seen on 02/14/19 by . Refill requests for ritalin. The [place] Prescription Monitoring System query has been completed per the following requirement(s): Annual Verification. Last filled on 05/04/19. Pended order to the provider. * Telephone Encounter - Shaista Forde - 05/29/2019 5091 EDT Medication Refill Medication(s) Requested: methylphenidate HCl (RITALIN;METHYLIN) 20 mg tablet - Take 2 tabs by mouth in the morning. methylphenidate HCl (RITALIN;METHYLIN) 10 mg tablet - Take one tab in the afternoon for narcolepsy. Pharmacy (reconcile pharmacy list): [id number] - [place], [place] - [address] Is patient out of medication? Kristi Forde 05/29/201916:54 documented in this encounter Plan of Treatment Upcoming Encounters Date Type Department Care Team (Late st Contact Info) Description 06/29/2024 14:15 EDT Office Visit [facility] [address] [place], [place] [phone] Jean Munoz MD [address] [place] [address] documented as of this encounter Visit Diagnoses Not on filedocumented in this encounter Discontinued Medications Medication Sig Discontinue Reason Start Date End Da te methylphenidate HCl (RITALIN;METHYLIN) 10 mg tablet Take one tab in the afternoon for narcolepsy. Reorder 05/04/2019 05/30/2019 methylphenidate HCl (RITALIN;METHYLIN) 20 mg tablet Take 2 tabs by mouth in the morning. Reorder 05/04/2019 05/30/2019 documented as of this encounter Additional Health Concerns Infection Onset Date Last Indicated Resolved Time R/O COVID-19 05/15/2022 05/15/2022 05/20/2022 22:1 6 EDT R/O COVID-19 11/14/2022 11/14/2022 11/14/2022 19:1 6 EST documented as of this encounter Care Teams Senior Environmental Practice Leader Relationship Specialty Start Date End Date Jean Munoz MD [address] [place] [address] PCP - General 12/31/08 Manny Rizzo MD [address] [place] [phone] 04/20/10 Afia Valle MD [address] [facility], [address] [place] [phone] MD Care Team Radiation Oncology 07/02/21 Jesi Leong LICSW [address] [place] [address] Tunnel Elastic Operator Lockstitch 12/24/21 09/20/22 Jesi Leong LICSW [address] [place] [address] Behavioral Health Tunnel Elastic Operator LockstitchMachine Finisher Care 10/19/22 01/23/24 documented as of this encounter
--- OUTSIDE RECORDS SUMMARY | 2024-06-10 07:16 | XMS_ITS | Encounter Summary ---
Author Organization [facility] Address [address] [place] [address] Care Team Providers Care Dark Room Attendant Name Role Phone Jean Munoz MD Primary Care Provider Manny Rizzo MD Unavailable Afia Valle MD Unavailable Jesi Leong REFRIGERATION MECHANIC HELPER Unavailable SaloJesi shanks REFRIGERATION MECHANIC HELPER Unavailable [phone] Reason for Visit * Reason Comments Other Encounter Details Date Type Department Care Team (Late st Contact Info) Description 03/07/2019 Refill [facility] [address] [place], [place] [phone] Jean Munoz MD [address] [place] [address] Other Social History Tobacco Use [...] needed for migraine. daily limit: 2 tablets 9 Tab 03/07/2019 04/03/2019 documented in this encounter Miscellaneous Notes * Telephone Encounter - Fozia Ojeda MD, MD - 03/07/2019 1030 EDT Signed Fozia Ojeda MD * Telephone Encounter - Yadira Mccauley RN - 03/07/2019 1014 EDT Medication(s) Requested: imitrex 50 Preferred Pharmacy: [facility] Is patient out of medication? Unknown Last Refill Date: 01/06/19 Last Visit Date with Ordering Provider: 02/02/19 Next Non-Acute Visit Date Scheduled with Care Team: 03/21/19 Yadira Mccauley RN 03/07/2019 10:14 documented in this encounter Plan of Treatment Upcoming Encounters Date Type Department Care Team (Late st Contact Info) Description 06/29/2024 14:15 EDT Office Visit [facility] Family Medicine [facility] [address] [place] [address] Jean Munoz MD [address] [place] [address] documented as of this encounter [...] by mouth as needed for migraine. daily limit, 2 tablets Reorder 01/06/2019 03/07/2019 documented as of this encounter Additional Health Concerns Infection Onset Date Last Indicated Resolved Time R/O COVID-19 05/15/2022 05/15/2022 05/20/2022 22:1 6 EDT R/O COVID-19 11/14/2022 11/14/2022 11/14/2022 19:1 6 EST documented as of this encounter Care Teams Dark Room Attendant Relationship Specialty Start Date End Date Jean Munoz MD [address] [place] [address] PCP - General 12/31/08 Manny Rizzo MD [address] [place] [phone] 04/20/10 Afia Valle MD [address] [place] [address] 2 [place] [phone] MD Care Team Radiation Oncology 07/02/21 Jesi Leong [facility] [address] [place] [address] Knitter Wire Mesh 12/24/21 09/20/22 Jesi Leong [facility] [address] [place] [address] Behavioral Health Knitter Wire MeshStove Refinisher Care 10/19/22 01/23/24 documented as of this encounter
--- OUTSIDE RECORDS SUMMARY | 2024-06-10 07:16 | XMS_ITS | Encounter Summary ---
Author Organization [facility] Address [address] [place] [address] Care Team Providers Care Rn Ed Name Role Phone Jean Munoz MD Primary Care Provider Manny Rizzo MD Unavailable Reason for Visit * Reason Comments Other Encounter Details Date Type Department Care Team (Late st Contact Info) Description 04/28/2019 [facility] [address] [place] [address] Jean Munoz MD [address] [place] [phone] Other Social History Tobacco Use Types [...] by mouth daily as needed for Nausea. 30 Tab 04/28/2019 07/13/2019 promethazine (PHENERGAN) 25 mg tabletIndications:Nausea Take 1 Tab by mouth every 6 hours as needed for Nausea. 25 Tab 04/28/2019 07/13/2019 zolpidem (AMBIEN) 5 mg tabletIndications:Insomni a, unspecified type Take 1 Tab by mouth at bedtime as needed for Sleep. Daily Max: 5 mg 30 Tab 04/28/2019 05/25/2019 documented in this encounter Miscellaneous Notes * Telephone Encounter - Herminia Wetzel MD - 04/28/2019 1730 EDT It looks like these are long-term medications for Ms. Viera. Reordered without refills. * Telephone Encounter - Shy Restrepo RN - 04/28/2019 1551 EDT Requested Prescriptions Pending Prescriptions Disp Refills ??? zolpidem (AMBIEN) 5 mg tablet [Pharmacy Med Name: Zolpidem Tartrate Oral Tablet 5 MG] 30 Tab 0 Sig: TAKE 1 TABLET BY MOUTH NIGHTLY AT BEDTIME as needed for sleep. daily max: 1 tablet ??? promethazine (PHENERGAN) 25 mg tablet [Pharmacy Med Name: Promethazine HCl Oral Tablet 25 MG] 25 Tab 0 Sig: TAKE ONE TABLET BY MOUTH EVERY SIX HOURS NEEDED for nausea ??? ondansetron (ZOFRAN) 4 mg tablet [Pharmacy Med Name: Ondansetron HCl Oral Tablet 4 MG] 30 Tab 0 Sig: TAKE ONE TABLET BY MOUTH DAILY NEEDED for nausea Pharmacy: [facility] Last Refill Date: 03/03/19, 02/13/19, 02/15/19 Last Visit Date: 04/25/19 Next Non-Acute Visit Date Scheduled with Care Team: Yes. 05/30/2019 SHY RESTREPO RN 04/28/2019 15:51 documented in this encounter Plan of Treatment Upcoming Encounters Date Type Department Care Team (Late st Contact Info) Description 06/29/2024 14:15 EDT Office Visit [facility] [address] [place] [address] Jean Munoz MD [address] [place] [address] documented as of this encounter Visit Diagnoses Diagnosis Insomnia, unspecified type Nausea Nausea alone Screening for osteoporosis- [...] EVERY SIX HOURS NEEDED for nausea Reorder 02/13/2019 04/28/2019 zolpidem (AMBIEN) 5 mg tabletIndications:Insomn ia, unspecified type TAKE ONE TABLET BY MOUTH NIGHTLY AT BEDTIME NEEDED FOR sleep. daily max: 1 tab Reorder 03/03/2019 04/28/2019 ondansetron (ZOFRAN) 4 mg tabletIndications:Nausea TAKE ONE TABLET BY MOUTH DAILY NEEDED for nausea Reorder 02/15/2019 04/28/2019 documented as of this encounter Care Teams Rn Ed Relationship Specialty Start Date End Date Jean Munoz MD [address] [place] [phone] PCP - General 12/31/08 Manny Rizzo MD [address] [place] [phone] 04/20/10 documented as of this encounter
--- OUTSIDE RECORDS SUMMARY | 2024-06-10 07:16 | XMS_ITS | Encounter Summary ---
Author Organization [facility] Address [address] [place] [address] Care Team Providers Care Media Production Operator Name Role Phone Jean Munoz MD Primary Care Provider Manny Rizzo MD Unavailable Encounter Details Date Type Department Care Team (Late st Contact Info) Description 02/21/2019 Community Health Team [facility] Primary Care [address] [facility], [place] [address] Claudia Pro V, [facility] [address] [place] [address] Social History Tobacco Use Types [...] as of this encounter Progress Notes * Claudia Pro LICSW - 02/21/2019 1002 EDT Liset establishing with Manda Bergeron for therapy. [facility], 3 [facility] Total Time: 5 min Referral: complete Follow up: n/a Status: Graduated documented in this encounter Plan of Treatment Upcoming Encounters Date Type Department Care Team (Late st Contact Info) Description 06/29/2024 14:15 EDT Office Visit [address] [phone] Jean Munoz MD [address] [place] [phone] documented as of this encounter Visit Diagnoses Not on filedocumented in this encounter Care Teams Media Production Operator Relationship Specialty Start Date End Date Jean Munoz MD [address] [place] [phone] PCP - General 12/31/08 Manny Rizzo MD [address] [place] [phone] 04/20/10 documented as of this encounter
--- OUTSIDE RECORDS SUMMARY | 2024-06-10 07:16 | XMS_ITS | Encounter Summary ---
Author Organization [facility] Address [address] [place] [address] Care Team Providers Care Software Systems Architect Name Role Phone Jean Munoz MD Primary Care Provider aMnny Rizzo MD Unavailable Reason for Visit * Reason Comments Other Encounter Details Date Type Department Care Team (Late st Contact Info) Description 04/05/[address] [phone] Fozia Ojeda MD Other Social History Tobacco [...] Visit [facility] [address] [place], [place] [phone] Jean Munoz MD [address] [place] [address] documented as of this encounter [...] colon documented in this encounter Care Teams Software Systems Architect Relationship Specialty Start Date End Date Jean Munoz MD [address] [place] [address] PCP - General 12/31/08 Manny Rizzo MD [address] [place] [address] 04/20/10 documented as of this encounter
--- OUTSIDE RECORDS SUMMARY | 2024-06-10 07:16 | XMS_ITS | Encounter Summary ---
Author Organization [facility] Address [address] [place] [address] Care Team Providers Care Periodicals Clerk Name Role Phone Jean Munoz MD Primary Care Provider Manny Rizzo MD Unavailable Reason for Visit * Reason Onset Date Comments Medications Refill 02/07/2019 Encounter Details Date Type Department Care Team (Late st Contact Info) Description 02/07/2019 Refill [facility] [address] [place], [place] [phone] Jean Munoz MD [address] [place] [address] Medications Refill Social History Tobacco [...] (LYRICA) 300 mg capsuleIndications:Chroni c low back pain, unspecified back pain laterality, with sciatica presence unspecified TAKE ONE CAPSULE BY MOUTH TWICE DAILY 60 Cap 5 02/07/2019 08/09/2019 documented in this encounter Miscellaneous Notes * Telephone Encounter - Jean Munoz MD - 02/07/2019 1627 EDT escript done, please notify patient, thanks * Telephone Encounter - Donis Stewart - 02/07/2019 1411 EDT Medication(s) Requested: lyrica 300mg Preferred Pharmacy: [facility] Is patient out of medication? unknown Last Refill Date: 08/18/18 Last Visit Date with Ordering Provider: 02/02/19 Next Non-Acute Visit Date Scheduled with Care Team: 02/22/19 Donis Stewart 02/07/2019 14:13 documented in this encounter Plan of Treatment Upcoming Encounters Date Type Department Care Team (Late st Contact Info) Description 06/29/2024 14:15 EDT Office Visit [facility] Medicine [facility] [address] [place] [address] Jean Munoz MD [address] [place] [phone] documented as of this encounter Visit Diagnoses Diagnosis Chronic low back pain, unspecified back pain laterality, with sciatica presence unspecified- Primary Screening for osteoporosis- Primary Special screening [...] ONE CAPSULE BY MOUTH TWICE DAILY Reorder 08/18/2018 02/07/2019 documented as of this encounter Care Teams Periodicals Clerk Relationship Specialty Start Date End Date Jean Munoz MD [address] [place] [address] PCP - General 12/31/08 Manny Rizzo MD [address] [place] [address] 04/20/10 documented as of this encounter
--- OUTSIDE RECORDS SUMMARY | 2024-06-10 07:16 | XMS_ITS | Encounter Summary ---
Author Organization [facility] Address [address] [place] [address] Care Team Providers Care Cement Grinding Mill Operator Name Role Phone Jean Munoz MD Primary Care Provider Manny Rizzo MD Unavailable Reason for Visit * Reason Onset Date Comments Medications Refill 05/26/2019 Encounter Details Date Type Department Care Team (Late st Contact Info) Description 05/26/2019 Refill [facility] [address] [place], [place] [phone] Jean Munoz MD [address] [place] [address] Medications Refill Social History Tobacco [...] Refills Start Date End Da te fluticasone propion-salmeterol (ADVAIR HFA) 115-21 mcg/actuation inhalerIndications:Modera te persistent asthma, unspecified whether complicated INHALE ONE PUFF BY MOUTH TWICE DAILY as directed 12 g 10 05/26/2019 08/30/2019 documented in this encounter Miscellaneous Notes * Telephone Encounter - Zuri Delaney - 05/26/2019 0834 EDT Medication(s) Requested: Advair Preferred Pharmacy: [facility] Is patient out of medication? Unknown Last Refill Date: 04/06/18 Last Visit Date with Ordering Provider: 04/25/19 Next Non-Acute Visit Date Scheduled with Care Team: Yes. 05/30/19 Zuri Delaney 05/26/2019 8:35 documented in this encounter Plan of Treatment Upcoming Encounters Date Type Department Care Team (Late st Contact Info) Description 06/29/2024 14:15 EDT [facility] [address] [place], [place] [phone] Jean Munoz MD [address] [place] [address] documented as of this encounter [...] Discontinue Reason Start Date End Da te ADVAIR HFA 115-21 mcg/actuation inhalerIndications:Moder ate persistent asthma, unspecified whether complicated INHALE ONE PUFF BY MOUTH TWICE DAILY as directed Reorder 04/06/2018 05/26/2019 documented as of this encounter Care Teams Cement Grinding Mill Operator Relationship Specialty Start Date End Date Jean Munoz MD [address] [place] [address] PCP - General 12/31/08 Manny Rizzo MD [address] [place] [address] 04/20/10 documented as of this encounter
--- OUTSIDE RECORDS SUMMARY | 2024-06-10 07:16 | XMS_ITS | Encounter Summary ---
Author Organization [facility] Address [address] [place] [address] Care Team Providers Care Ranch Supervisor Name Role Phone Jean Munoz MD Primary Care Provider Manny Rizzo MD Unavailable Afia Valle MD Unavailable [phone] SaloJesi shanks COMPUTER SYSTEMS MANAGER Unavailable SaloJesi shanks COMPUTER SYSTEMS MANAGER Unavailable Reason for Visit * Reason Onset Date Comments Medications Refill 03/07/2019 Encounter Details Date Type Department Care Team (Late st Contact Info) Description 03/07/2019 Refill [facility] - [address] [address] Tiana Bacon [address] [place] [address] Medications Refill Social History Tobacco [...] by mouth in the morning. 60 Tab 03/07/2019 04/05/2019 methylphenidate HCl (RITALIN;METHYLIN) 10 mg tablet Take one tab in the afternoon for narcolepsy. 30 Tab 03/07/2019 04/05/2019 documented in this encounter Miscellaneous Notes * Telephone Encounter - Corrina Ac RN - 03/07/2019 0931 EDT Pt last seen on 02/14/19 by . Refill requests for ritalin. Pended orders to the doctor. * Telephone Encounter - Shaista Forde - 03/07/2019 0918 EDT Medication Refill Medication(s) Requested: methylphenidate HCl (RITALIN;METHYLIN) 20 mg tablet - Take 2 tabs by mouth in the morning methylphenidate HCl (RITALIN;METHYLIN) 10 mg tablet - Take one tab in the afternoon for narcolepsy. Pharmacy (reconcile pharmacy list): [id number] - [place], [place] - [address] Is patient out of medication? Kristi Forde 03/07/20199:18 documented in this encounter Plan of Treatment Upcoming Encounters Date Type Department Care Team (Late st Contact Info) Description 06/29/2024 14:15 EDT [facility] Visit [facility] [address] [place] [address] Jean Munoz MD [address] [place] [address] documented as of this encounter Visit Diagnoses Not on filedocumented in this encounter Discontinued Medications Medication Sig Discontinue Reason Start Date End Da te methylphenidate HCl (RITALIN;METHYLIN) 10 mg tablet Take one tab in the afternoon for narcolepsy. Reorder 02/08/2019 03/07/2019 methylphenidate HCl (RITALIN;METHYLIN) 20 mg tablet Take 2 tabs by mouth in the morning. Reorder 02/08/2019 03/07/2019 documented as of this encounter Additional Health Concerns Infection Onset Date Last Indicated Resolved Time R/O COVID-19 05/15/2022 05/15/2022 05/20/2022 22:1 6 EDT R/O COVID-19 11/14/2022 11/14/2022 11/14/2022 19:1 6 EST documented as of this encounter Care Teams Ranch Supervisor Relationship Specialty Start Date End Date Jean Munoz MD [address] [place] [address] PCP - General 12/31/08 Manny Rizzo MD [facility] [place] [phone] 04/20/10 Afia Valle MD [address] [facility] 2 [place] [phone] MD Care Team Radiation Oncology 07/02/21 Jesi Leong COMPUTER SYSTEMS MANAGER [address] [place] [address] Matcher Operator 12/24/21 09/20/22 Jesi Leong COMPUTER SYSTEMS MANAGER [address] [place] [address] Behavioral Health Matcher OperatorMud Mixer Care 10/19/22 01/23/24 documented as of this encounter
--- OUTSIDE RECORDS SUMMARY | 2024-06-10 07:16 | XMS_ITS | Encounter Summary ---
Author Organization [facility] Address [address] [place] [address] Care Team Providers Care Plunket Nurse Name Role Phone Jean Munoz MD Primary Care Provider Manny Rizzo MD Unavailable Reason for Visit * Reason Comments Other Encounter Details Date Type Department Care Team (Late st Contact Info) Description 04/03/[address] [phone] Magaly Sanders MD [address] [place] [address] Other Social History Tobacco Use Types Packs/Day [...] End Da te fexofenadine (JUDITH) 180 mg tablet TAKE 1 TABLET BY MOUTH EVERY DAY 30 Tab 5 04/04/2019 08/30/2019 documented in this encounter Miscellaneous Notes * Telephone Encounter - Yadira Mccauley RN - 04/04/2019 0947 EDT Medication(s) Requested: Judith 180 Preferred Pharmacy: [facility] Is patient out of medication? Unknown Last Refill Date: 12/14/18 Last Visit Date with Ordering Provider: 02/02/19 Next Non-Acute Visit Date Scheduled with Care Team: 04/25/19 Yadira Mccauley RN 04/04/2019 9:25 documented in this encounter Plan of Treatment Upcoming Encounters Date Type Department Care Team (Late st Contact Info) Description 06/29/2024 14:15 EDT Office Visit [facility] Medicine [facility] [address] [place] [address] Jean Munoz MD [address] [place] [address] documented as of this encounter Visit Diagnoses Not on filedocumented in this encounter Discontinued Medications Medication Sig Discontinue Reason Start Date End Da te fexofenadine (JUDITH) 180 mg tablet Take 1 tablet by mouth daily. Reorder 12/14/2018 04/03/2019 documented as of this encounter Care Teams Plunket Nurse Relationship Specialty Start Date End Date Jean Munoz MD [address] [place] [address] PCP - General 12/31/08 Manny Rizzo MD [address] [place] [phone] 04/20/10 documented as of this encounter
--- OUTSIDE RECORDS SUMMARY | 2024-06-10 07:16 | XMS_ITS | Encounter Summary ---
Author Organization [facility] Address [address] [place] [address] Care Team Providers Care Novelty Maker Name Role Phone Jean Munoz MD Primary Care Provider Manny Rizzo MD Unavailable Afia Valle MD Unavailable Jesi Leong HEAT TREATMENT TECHNICIAN Unavailable SaloJesi shanks HEAT TREATMENT TECHNICIAN Unavailable Reason for Visit * Reason Comments Other Encounter Details Date Type Department Care Team (Late st Contact Info) Description 02/13/2019 Refill [facility] Family [facility] [address] [place], [place] [phone] Jean Munoz MD [address] [place] [address] Other Social History Tobacco Use [...] MOUTH EVERY SIX HOURS NEEDED for nausea 25 Tab 02/13/2019 04/28/2019 documented in this encounter Miscellaneous Notes * Telephone Encounter - Jean Munoz MD - 02/13/2019 2032 EDT escript done, please notify patient, thanks * Telephone Encounter - Caroline Winter RN - 02/13/2019 1610 EDT Medication(s) Requested: Phenergan Preferred Pharmacy: [facility] Is patient out of medication? Unknown Last Refill Date: 01/06/19 #25 x 0 Last Visit Date with Ordering Provider: 02/02/19 Next Non-Acute Visit Date Scheduled with Care Team: Yes. Caroline Winter RN 02/13/2019 16:10 documented in this encounter Plan of Treatment Upcoming Encounters Date Type Department Care Team (Late st Contact Info) Description 06/29/2024 14:15 EDT Office Visit [address] [address] Jean Munoz MD [address] [place] [address] documented as of this encounter [...] EVERY SIX HOURS NEEDED for nausea Reorder 01/06/2019 02/13/2019 documented as of this encounter Additional Health Concerns Infection Onset Date Last Indicated Resolved Time R/O COVID-19 05/15/2022 05/15/2022 05/20/2022 22:1 6 EDT R/O COVID-19 11/14/2022 11/14/2022 11/14/2022 19:1 6 EST documented as of this encounter Care Teams Novelty Maker Relationship Specialty Start Date End Date Jean Munoz MD [address] [place] [address] PCP - General 12/31/08 Manny Rizzo MD [address] [place] [phone] 04/20/10 Afia Valle MD [address] [facility], [facility] [address] [place] [phone] Care Team Radiation Oncology 07/02/21 Jesi Leong, [facility] [address] [place] [address] Kettle Cleaner 12/24/21 09/20/22 Jesi Leong, [facility] [address] [place] [address] Behavioral Health Kettle CleanerChief Radiology Care 10/19/22 01/23/24 documented as of this encounter
--- OUTSIDE RECORDS SUMMARY | 2024-06-10 07:16 | XMS_ITS | Encounter Summary ---
Author Organization [facility] Address [address] [place] [address] Care Team Providers Care Law Enforcement Officer Name Role Phone Jean Munoz MD Primary Care Provider Manny Rizzo MD Unavailable Reason for Visit * Reason Onset Date Comments Medications Refill 02/10/2019 Encounter Details Date Type Department Care Team (Late st Contact Info) Description 02/10/2019 Refill [facility] [address] [place], [place] [phone] Jean Munoz MD [address] [place] [address] Medications Refill Social History Tobacco [...] Miscellaneous Notes * Telephone Encounter - John Cid - 02/10/2019 1126 EDT spircharlie had PA done and is waiting at [facility] with refills. * Telephone Encounter - Carmita Franklin - 02/10/2019 1053 EDT Medication(s) Requested: Spiriva Respimat Preferred Pharmacy: [facility] Is patient out of medication? Unknown Last Refill Date: 11/09/18 but Discontinued on 02/07/19 Last Visit Date with Ordering Provider: 02/02/19 Next Non-Acute Visit Date Scheduled with Care Team: Yes. 02/22/19 Carmita Franklin 02/10/2019 10:54 documented in this encounter Plan of Treatment Upcoming Encounters Date Type Department Care Team (Late st Contact Info) Description 06/29/2024 14:15 EDT Office Visit [facility] Medicine [facility] [address] [place] [address] Jean Munoz MD [address] [place] [address] documented as of this encounter Visit Diagnoses Diagnosis Chronic obstructive pulmonary disease, unspecified COPD type ([facility])- Primary Screening for osteoporosis- Primary Special screening for osteoporosis Primary narcolepsy without cataplexy Chronic pain syndrome Chronic low back pain Lumbago Chronic use of opiate for therapeutic purpose Pain medication agreement Encounter for long-term (current) use of other medications Screen for colon cancer Special screening for malignant neoplasms, colon documented in this encounter Care Teams Law Enforcement Officer Relationship Specialty Start Date End Date Jean Munoz MD [address] [place] [phone] PCP - General 12/31/08 Manny Rizzo MD [address] [place] [phone] 04/20/10 documented as of this encounter
--- OUTSIDE RECORDS SUMMARY | 2024-06-10 07:16 | XMS_ITS | Encounter Summary ---
Author Organization [facility] Address [address] [place] [address] Care Team Providers Care Weave Defect Charting Clerk Name Role Phone Jean Munoz MD Primary Care Provider Manny iRzzo MD Unavailable Afia Valle MD Unavailable Jesi Leong VETERINARY MEAT INSPECTOR Unavailable SaloJesi shanks VETERINARY MEAT INSPECTOR Unavailable Reason for Visit * Reason Onset Date Comments Medications Refill 02/07/2019 Encounter Details Date Type Department Care Team (Late st Contact Info) Description 02/07/2019 Refill [facility] Sleep Program - [address] [address] Tiana Bacon [address] [place] [address] Medications Refill Social History Tobacco [...] by mouth in the morning. 60 Tab 02/08/2019 03/07/2019 methylphenidate HCl (RITALIN;METHYLIN) 10 mg tablet Take one tab in the afternoon for narcolepsy. 30 Tab 02/08/2019 03/07/2019 documented in this encounter Miscellaneous Notes * Telephone Encounter - Shaista Forde - 02/08/2019 1656 EDT Pt called checking status of refills. Informed her that 3 business days are needed to process as she just called yesterday 02.07.19 requesting them. Also let her know that when she gets low, call for refills. Pt took her last dose this afternoon. Appt scheduled for 6.4.19 @ 1300 * Telephone Encounter - Corrina Ac RN - 02/08/2019 0801 EDT Pt last seen by on 09/14/18. Refill requests for methylphenidate pended to . * Telephone Encounter - Shaista Forde - 02/07/2019 0933 EDT PT called to request RX refills. methylphenidate HCl (RITALIN;METHYLIN) 20 mg tablet methylphenidate HCl (RITALIN;METHYLIN) 10 mg tablet [id number] [place] [address] documented in this encounter Plan of Treatment Upcoming Encounters Date Type Department Care Team (Late st Contact Info) Description 06/29/2024 14:15 EDT Office Visit [facility] [address] [place] [address] Jean Munoz MD [address] [place] [address] documented as of this encounter Visit Diagnoses Not on filedocumented in this encounter Discontinued Medications Medication Sig Discontinue Reason Start Date End Da te methylphenidate HCl (RITALIN;METHYLIN) 10 mg tablet Take one tab in the afternoon for narcolepsy. Reorder 01/10/2019 02/08/2019 methylphenidate HCl (RITALIN;METHYLIN) 20 mg tablet Take 2 tabs by mouth in the morning. Reorder 01/10/2019 02/08/2019 documented as of this encounter Additional Health Concerns Infection Onset Date Last Indicated Resolved Time R/O COVID-19 05/15/2022 05/15/2022 05/20/2022 22:1 6 EDT R/O COVID-19 11/14/2022 11/14/2022 11/14/2022 19:1 6 EST documented as of this encounter Care Teams Weave Defect Charting Clerk Relationship Specialty Start Date End Date Jean Munoz MD [address] [place] [address] PCP - General 12/31/08 Manny Rizzo MD [address] [place] [phone] 04/20/10 Afia Valle MD [address] [place] [address] 2 [place] [phone] MD Care Team Radiation Oncology 07/02/21 Jesi Leong [facility] [address] [place] [phone] Upholstery Tech 12/24/21 09/20/22 Jesi Leong [facility] [address] [place] [phone] Behavioral Health Upholstery TechTrim Operator Care 10/19/22 01/23/24 documented as of this encounter
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
--- OUTSIDE RECORDS SUMMARY | 2024-06-10 07:16 | XMS_ITS | Encounter Summary ---
Author Organization [facility] Address [address] [place] [address] Care Team Providers Care Sephora Operations Consultant Name Role Phone Jean Munoz MD Primary Care Provider Manny Rizzo MD Unavailable Afia Valle MD Unavailable Jesi Leong TOPSTITCHER ZIGZAG Unavailable SaloJesi shanks TOPSTITCHER ZIGZAG Unavailable [phone] Reason for Visit * Reason Comments Other Encounter Details Date Type Department Care Team (Late st Contact Info) Description 03/03/2019 Refill [facility] Family Medicine [facility] [address] [place], [place] [phone] Jean Munoz MD [address] [place] [address] Other Social History Tobacco Use [...] 5 mg tabletIndications:Insomni a, unspecified type TAKE ONE TABLET BY MOUTH NIGHTLY AT BEDTIME NEEDED FOR sleep. daily max: 1 tab 30 Tab 1 03/03/2019 04/28/2019 documented in this encounter Miscellaneous Notes * Telephone Encounter - Jean Munoz MD, MD - 03/03/2019 1049 EDT escript done, please notify patient, thanks * Telephone Encounter - Yadira Mccauley RN - 03/03/2019 1037 EDT Medication(s) Requested: ambien 5 [facility] Pharmacy: [facility] Is patient out of medication? Unknown Last Refill Date: 11/15/18 Last Visit Date with Ordering Provider: 02/02/19 Next Non-Acute Visit Date Scheduled with Care Team: 03/21/19 Yadira Mccauley RN 03/03/2019 10:37 documented in this encounter Plan of Treatment Upcoming Encounters Date Type Department Care Team (Late st Contact Info) Description 06/29/2024 14:15 EDT [facility] [address] [place] [address] Jean Munoz MD [address] [place] [address] documented as of this encounter [...] documented as of this encounter Care Teams Sephora Operations Consultant Relationship Specialty Start Date End Date Jean Munoz MD [address] [place] [phone] PCP - General 12/31/08 Manny Rizzo MD [facility]5 [place] [address] 04/20/10 Afia Valle MD [address] [place] [address] 2 [place] [phone] Care Team Radiation Oncology 07/02/[address] Jesi Leong LICSW [address] [place] [phone] Catalytic Case Operator 12/24/21 09/20/22 Jesi Leong LICSW [address] [place] [address] Behavioral Health Catalytic Case OperatorOptical Glass Etcher Care 10/19/22 01/23/24 documented as of this encounter
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
--- OUTSIDE RECORDS SUMMARY | 2024-06-10 07:16 | XMS_ITS | Encounter Summary ---
Author Organization [facility] Address [address] [place] [address] Care Team Providers Care Permastone Installer Name Role Phone Jean Munoz MD Primary Care Provider Manny Rizzo MD Unavailable Afia Valle MD Unavailable Jesi Leong INFO PRINT PRESS OPERATOR Unavailable SaloJesi shanks INFO PRINT PRESS OPERATOR Unavailable Reason for Visit * Reason Comments Other Encounter Details Date Type Department Care Team (Late st Contact Info) Description 05/05/2019 Refill [facility] [address] [place], [place] [phone] Jean Munoz MD [address] [place] [address] Other Social History Tobacco Use [...] 2 tabs 9 Tab 3 05/05/2019 09/07/2019 documented in this encounter Miscellaneous Notes * Telephone Encounter - Jean Munoz MD - 05/05/2019 1117 EDT escript done, please notify patient, thanks * Telephone Encounter - Lena Bell RN - 05/05/2019 1046 EDT Medication(s) Requested: imitrex 50 Preferred Pharmacy: [facility] Is patient out of medication? Unknown Last Refill Date: 04/04/19 Last Visit Date with Ordering Provider: 05/30/19 Next Non-Acute Visit Date Scheduled with Care Team: Yes. Lena Bell RN 05/05/2019 10:50 documented in this encounter Plan of Treatment Upcoming Encounters Date Type Department Care Team (Late st Contact Info) Description 06/29/2024 14:15 EDT Office Visit [address] [place] [address] Jean Munoz MD [address] [place] [address] documented as of this encounter [...] needed for migraine. Daily limit 2 tablets Reorder 04/04/2019 05/05/2019 documented as of this encounter Additional Health Concerns Infection Onset Date Last Indicated Resolved Time R/O COVID-19 05/15/2022 05/15/2022 05/20/2022 22:1 6 EDT R/O COVID-19 11/14/2022 11/14/2022 11/14/2022 19:1 6 EST documented as of this encounter Care Teams Permastone Installer Relationship Specialty Start Date End Date Jean Munoz MD [address] [place] [address] PCP - General 12/31/08 Manny Rizzo MD [address] [place] [phone] 04/20/10 Afia Valle MD [address] [place] [address] [address] [place] [phone] Care Team Radiation Oncology 07/02/21 Jesi Leong [facility] [address] [place] [phone] Bracelet Maker Novelty 12/24/21 09/20/22 Jesi Leong [facility] [address] [place] [phone] Behavioral Health Bracelet Maker NoveltyPhotograph [employer] 10/19/22 01/23/24 documented as of this encounter
--- OUTSIDE RECORDS SUMMARY | 2024-06-10 07:16 | XMS_ITS | Encounter Summary ---
Author Organization [facility] Address [address] [place] [address] Care Team Providers Care Geothermal Powerplant Mechanic Helper Name Role Phone Jean Munoz MD Primary Care Provider Manny Rizzo MD Unavailable Reason for Visit * Reason Comments Other Encounter Details Date Type Department Care Team (Late st Contact Info) Description 06/18/2019 [facility] [address] [place] [address] Jean Munoz MD [address] [place] [phone] Other Social History Tobacco Use Types [...] Dispensed Refills Start Date End Da te amLODIPine (NORVASC) 5 mg tabletIndications:Migraine without status migrainosus, not intractable, unspecified migraine type TAKE 1 TABLET BY MOUTH EVERY DAY 90 Tab 06/20/2019 08/30/2019 DALIRESP 500 mcg tabletIndications:Chronic obstructive pulmonary disease, unspecified COPD type ([facility]) TAKE 1 TABLET BY MOUTH EVERY DAY 90 Tab 1 06/20/2019 10/09/2019 documented in this encounter Miscellaneous Notes * Telephone Encounter - Yadira Mccauley RN - 06/20/2019 1157 EDT Medication(s) Requested: Amlodipine 5, daliresp 500 [facility] Pharmacy: [facility] Is patient out of medication? Unknown Last Refill Date: 05/26/18, 04/06/18 Last Visit Date with Ordering Provider: 04/25/19 Next Non-Acute Visit Date Scheduled with Care Team: 07/18/19 Yadira Mccauley RN 06/20/2019 11:57 documented in this encounter Plan of Treatment Upcoming Encounters Date Type Department Care Team (Late st Contact Info) Description 06/29/2024 14:15 EDT Office Visit [facility] [address] [place] [address] Jean Munoz MD [address] [place] [phone] documented as of this encounter Visit Diagnoses Diagnosis Chronic obstructive pulmonary disease, unspecified COPD type (HCC-CMS) Migraine without status migrainosus, not intractable, unspecified [...] End Da te amLODIPine (NORVASC) 5 mg tabletIndications:Migrain e without status migrainosus, not intractable, unspecified migraine type Take 1 Tab by mouth daily. Reorder 05/26/2018 06/18/2019 DALIRESP 500 mcg tabletIndications:Chronic obstructive pulmonary disease, unspecified COPD type (HCC-CMS) TAKE 1 TABLET BY MOUTH EVERY DAY Reorder 04/06/2018 06/20/2019 documented as of this encounter Care Teams Geothermal Powerplant Mechanic Helper Relationship Specialty Start Date End Date Jean Munoz MD [address] [place] [phone] PCP - General 12/31/08 Manny Rizzo MD [address] [place] [phone] 04/20/10 documented as of this encounter
--- OUTSIDE RECORDS SUMMARY | 2024-06-10 07:16 | XMS_ITS | Encounter Summary ---
Author Organization [facility] Address [address] [place] [address] Care Team Providers Care Wood Crafter Name Role Phone Jean Munoz MD Primary Care Provider Manny Rizzo MD Unavailable Reason for Visit * Reason Onset Date Comments Medication Problem 04/06/2019 Encounter Details Date Type Department Care Team (Late st Contact Info) Description 04/06/2019 Telephone [facility] [address] [place] [address] Jean Munoz MD [address] [place] [phone] Medication Problem Social History Tobacco Use [...] te busPIRone (BUSPAR) 5 mg tablet Take 1.5 Tabs by mouth 2 times daily. 90 Tab 1 04/06/2019 04/25/2019 documented in this encounter Miscellaneous Notes * Telephone Encounter - John Cid - 04/06/2019 1201 EDT T/c to patient and advised of PCPs msg. Refilled script with new instructions per patient request as she is going out of town in a few days. She also asks about a refill of xopenex which she has beenusing 2 puffs 4-5 times a day with the humidity. Advised that new script was sent to correct pharm on 04/04 and that she should try to only use it 4 times daily. patient verbalizes understanding and agrees with plan. To call back if has any issues with this script. * Telephone Encounter - Jean Munoz MD - 04/06/2019 1152 EDT Increase Buspar to 5 mg 1.5 tab 2 x/day, thanks * Telephone Encounter - Kavita Baxter - 04/06/2019 1120 EDT Reason for Call: Medication Problem Summary/Symptoms: Patient was started on Buspar 03/31 for anxiety. She says it is not helping and she can't get in to her psychiatrist until 04/25 when she returns from vacation.Wants to know what she should do Onset and Duration? Appointment Offered? No Kavita Baxter 04/06/2019 11:20 documented in this encounter Plan of Treatment Upcoming Encounters Date Type Department Care Team (Late st Contact Info) Description 06/29/2024 14:15 EDT Office Visit [facility] [address] [place] [address] Jean Munoz MD [address] [place] [phone] documented as of this encounter Visit Diagnoses Not on filedocumented in this encounter Discontinued Medications Medication Sig Discontinue Reason Start Date End Da te busPIRone (BUSPAR) 5 mg tablet Take 1 Tab by mouth 2 times daily. Alternate therapy 03/31/2019 04/06/2019 documented as of this encounter Care Teams Wood Crafter Relationship Specialty Start Date End Date Jean Munoz MD [address] [place] [phone] PCP - General 12/31/08 Manny Rizzo MD [address] [place] [address] 04/20/10 documented as of this encounter
--- OUTSIDE RECORDS SUMMARY | 2024-06-10 07:16 | XMS_ITS | Encounter Summary ---
Author Organization [facility] Address [address] [place] [address] Care Team Providers Care Rectangular Tank Cooper Name Role Phone Jean Munoz MD Primary Care Provider Manny Rizzo MD Unavailable Encounter Details Date Type Department Care Team (Late st Contact Info) Description 04/03/2019 Documentation Visit [facility] Family Medicine [address] [address] Yohana López MD [address] [place] [address] Social History Tobacco Use Types Packs/Day Years [...] as of this encounter Progress Notes * Yohana López MD, MD - 04/03/2019 0909 EDT Psychiatry Consultation Conference Note: Consultation to: Jean Munoz MD Consultation from: Dr. Yohana López Summary: Recently added Buspar - combined stimulant and sedative / hypnotic and opioids. Maximum dose Zoloft perceived as unhelpful. Gina Keen is the one in charge of the referral list. I can see her quicker if she would want to come in for a no show or late cancel spot. Thanks! Yohana ===View-only below this line=== ----- Message ----- From: Vera Hartman RN Sent: 03/31/2019 12:35 To: Yohana López MD, Jean Munoz MD ----- Message from Vera Hartman RN sent at 03/31/2019 12:35 EDT ----- To Dr. Munoz: see note, patient has been taking 200mg of sertraline for the past few weeks with no change. To Dr. López: see note. Patient referred to you. Having a very tough time. Just wanted to get an estimate of how far you are booking out. Thank you! Yohana López MD Consulting Psychiatrist [facility] Outpatient [facility] documented in this encounter Plan of Treatment Upcoming Encounters Date Type Department Care Team (Late st Contact Info) Description 06/29/2024 14:15 EDT Office Visit [facility] [address] [place] [address] Jean Munoz MD [address] [place] [phone] documented as of this encounter Visit Diagnoses Not on filedocumented in this encounter Care Teams Rectangular Tank Cooper Relationship Specialty Start Date End Date Jean Munoz MD [address] [place] [phone] PCP - General 12/31/08 Manny Rizzo MD [address] [place] [phone] 04/20/10 documented as of this encounter
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
--- OUTSIDE RECORDS SUMMARY | 2024-06-10 07:16 | XMS_ITS | Encounter Summary ---
Author Organization [facility] Address [address] [place] [address] Care Team Providers Care Mouse Breeder Name Role Phone Jean Munoz MD Primary Care Provider Manny Rizzo MD Unavailable Afia Valle MD Unavailable SaloJesi shanks STATION BAGGAGE AGENT Unavailable [phone] SaloJesi shanks E STATION BAGGAGE AGENT Unavailable Reason for Visit * Reason Comments Other Encounter Details Date Type Department Care Team (Late st Contact Info) Description [facility] [address] [place] [address] Herminia Wetzel MD [address] [place] [address] Other Social History Tobacco Use [...] AT BEDTIME NEEDED FOR SLEEP. DAILY MAX:5MG 30 Tab 05/26/2019 06/22/2019 documented in this encounter Miscellaneous Notes * Telephone Encounter - Esme Laboy RN - 05/26/2019 1320 EDT Medication(s) Requested: [email or web address] [facility]acy[facility] Is patient out of medication? Unknown Last Refill Date: 04.28.19 Last Visit Date with Ordering Provider: 04.25.19 Next Non-Acute Visit Date Scheduled with Care Team: Yes.05.30.19 ESME LABOY RN 05/26/2019 13:20 documented in this encounter Plan of Treatment Upcoming Encounters Date Type Department Care Team (Late st Contact Info) Description 06/29/2024 14:15 EDT Office Visit [facility] [address] [place], [place] [phone] Jean Munoz MD [address] [place] [address] documented as of this encounter [...] mg tabletIndications:Insomn ia, unspecified type Take 1 Tab by mouth at bedtime as needed for Sleep. Daily Max: 5 mg Reorder 04/28/2019 05/25/2019 documented as of this encounter Additional Health Concerns Infection Onset Date Last Indicated Resolved Time R/O COVID-19 05/15/2022 05/15/2022 05/20/2022 22:1 6 EDT R/O COVID-19 11/14/2022 11/14/2022 11/14/2022 19:1 6 EST documented as of this encounter Care Teams Mouse Breeder Relationship Specialty Start Date End Date Jean Munoz MD [address] [place] [phone] PCP - General 12/31/08 Manny Rizzo MD [facility] [place] [phone] 04/20/10 Afia Valle MD [address] [place] [address] [address] [place] [phone] Care Team Radiation Oncology 07/02/21 Jesi Leong LICSW [address] [place] [phone] Bird Cage Assembler 12/24/21 09/20/22 Jesi Leong LICSW [address] [place] [address] Behavioral Health Bird Cage AssemblerRoom Service Runner Care 10/19/22 01/23/24 documented as of this encounter
--- OUTSIDE RECORDS SUMMARY | 2024-06-10 07:16 | XMS_ITS | Encounter Summary ---
Author Organization [facility] Address [address] [place] [address] Care Team Providers Care Veterinarian Name Role Phone Jean Munoz MD Primary Care Provider Manny Rizzo MD Unavailable Reason for Visit * Reason Onset Date Comments Medications Refill 02/22/2019 Encounter Details Date Type Department Care Team (Late st Contact Info) Description 02/22/2019 Refill [facility] [address] [place], [place] [phone] Jean Munoz MD [address] [place] [address] Medications Refill Social History Tobacco [...] Miscellaneous Notes * Telephone Encounter - Caroline Winter RN - 02/22/2019 1115 EDT Last refill 02/07/19 to [facility]. Request is from [facility]. Outgoing call to [facility]. Will transfer RX from the [facility] location. * Telephone Encounter - Gina Lawrence - 02/22/2019 1024 EDT Medication(s) Requested: sierra Preferred Pharmacy: [facility] Is patient out of medication? Unknown Last Refill Date: unknown Last Visit Date with Ordering Provider: 02/02/19 Next Non-Acute Visit Date Scheduled with Care Team: Yes. 03/21/19 Gina Lawrence 02/22/2019 10:36 documented in this encounter Plan of Treatment Upcoming Encounters Date Type Department Care Team (Late st Contact Info) Description 06/29/2024 14:15 EDT Office Visit [facility] [address] [place] [address] Jean Munoz MD [address] [place] [phone] documented as of this encounter Visit Diagnoses Not on filedocumented in this encounter Care Teams Veterinarian Relationship Specialty Start Date End Date Jean Munoz MD [address] [place] [phone] PCP - General 12/31/08 Manny Rizzo MD [address] [place] [phone] 04/20/10 documented as of this encounter
--- OUTSIDE RECORDS SUMMARY | 2024-06-10 07:17 | XMS_ITS | Encounter Summary ---
Author Organization [facility] Address [address] [place] [address] Care Team Providers Care Incinerator Operator Name Role Phone Jean Munoz MD Primary Care Provider Manny Rizzo MD Unavailable Reason for Visit * Reason Comments Chronic Pain Encounter Details Date Type Department Care Team (Late st Contact Info) Description 08/18/2018 13:00 EST Office Visit [facility] [address] [place] [address] Jean Munoz MD [address] [place] [phone] Chronic pain syndrome (Primary Dx); Chronic low back pain, unspecified back pain laterality, with sciatica presence unspecified; Chronic use of opiate for therapeutic purpose; Chronic knee pain, unspecified laterality; Moderate persistent asthma without complication; Insomnia, unspecified type; Need for influenza vaccination; Need for shingles vaccine; Breast cancer screening; Acute non-recurrent maxillary sinusitis Social History Tobacco Use Types Packs/Day Years [...] Sign Reading Time Taken Comments Blood Pressure 124/72 08/18/2018 1255 EST Pulse 76 08/18/2018 1255 EST Temperature 36.6 ??C (97.8 ??F) 08/18/2018 1255 EST Respiratory Rate 17 08/18/2018 1255 EST Oxygen Saturation - - Inhaled Oxygen Concentration - - Weight 89.4 kg (197 lb) 08/18/2018 1255 EST Height - - Body Mass Index 33.81 05/26/2018 1307 EDT documented in this encounter Functional Status [...] * Patient Instructions* Kaitlyn Montero LPN - 08/18/2018 13:00 EST Please call the following number to schedule your routine mammogram. [phone] Liset was seen today for chronic pain. [...] for Pain. Daily Max: 8 Tabs - traMADol (ULTRAM) 50 mg tablet; Take 1 Tab by mouth every 6 hours as needed for Pain. Daily Max: 200 mg Chronic low back pain, unspecified back pain laterality, with sciatica presence unspecified - pregabalin (LYRICA) 300 mg capsule; TAKE ONE CAPSULE BY MOUTH TWICE DAILY Chronic use of opiate for therapeutic purpose - HYDROcodone-acetaminophen (NORCO) 5-325 mg tablet; Take [...] for Pain. Daily Max: 8 Tabs - traMADol (ULTRAM) 50 mg tablet; Take 1 Tab by mouth every 6 hours as needed for Pain. Daily Max: 200 mg Chronic knee pain, unspecified laterality Moderate persistent asthma without complication - ipratropium-albuterol (DUONEB) 0.5 mg-3 mg(2.5 mg base)/3 mL nebulizer solution; Take 3 mL by nebulization every 4 hours as needed for Wheezing. Insomnia, unspecified type - zolpidem (AMBIEN) 5 mg tablet; Take 1 Tab by mouth at bedtime as needed for Sleep. Daily Max: 5 mg Need for influenza vaccination - INFLUENZA VACCINE QUAD (FLUZONE) PF 0.5 ML IM (3 YRS+) Need for shingles vaccine - zoster vaccine recombinant, PF, (SHINGRIX, PF,) IM Injection - vial; Inject 0.5 mL into the muscle once for 1 dose. - zoster vaccine recombinant, PF, (SHINGRIX, PF,) IM Injection - vial; Inject 0.5 mL into the muscle once for 1 dose. Breast cancer screening Acute non-recurrent maxillary sinusitis - amoxicillin-clavulanate (AUGMENTIN) 875-125 mg per tablet; Take 1 Tab by mouth every 12 hours. Other orders - Cancel: CT LOW DOSE LUNG CANCER ANNUAL SCREENING WO CONTRAST documented in this encounter Ordered Prescriptions Prescription Sig Dispensed Refills Start Date End Da te zolpidem (AMBIEN) 5 mg tabletIndications:Insom yesi, unspecified type Take 1 Tab by mouth at bedtime as needed for Sleep. Daily Max: 5 mg 30 Tab 2 08/18/2018 11/10/2018 amoxicillin-clavulanate (AUGMENTIN) 875-125 mg per tabletIndications:Acute non-recurrent maxillary sinusitis Take 1 Tab by mouth every 12 hours. 14 Tab 08/18/2018 11/10/2018 zoster vaccine recombinant, PF, (SHINGRIX, PF,) IM Injection - vialIndications:Need for shingles vaccine Inject 0.5 mL into the muscle once for 1 dose. 1 Each 02/16/2019 10/18/2019 zoster vaccine recombinant, PF, (SHINGRIX, PF,) IM Injection - vialIndications:Need for shingles vaccine Inject 0.5 mL into the muscle once for 1 dose. 1 Each 08/18/2018 10/18/2019 traMADol (ULTRAM) 50 mg tabletIndications:Chron ic pain syndrome,Chronic use of opiate for therapeutic purpose Take 1 Tab by mouth every 6 hours as needed for Pain. 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 3 mL 3 08/18/2018 08/30/2019 HYDROcodone-acetaminoph en (NORCO) 5-325 mg tabletIndications:Chron ic pain syndrome,Chronic use of opiate for therapeutic purpose Take 1-2 Tabs by mouth every 6 hours as needed for up to 28 days for Pain. Daily Max: 8 Tabs 112 Tab 08/23/2018 11/10/2018 HYDROcodone-acetaminoph en (NORCO) 5-325 mg tabletIndications:Chron ic pain syndrome,Chronic use of opiate for therapeutic purpose Take 1-2 Tabs by mouth every 6 hours as needed for up to 28 days for Pain. Daily Max: 8 Tabs 112 Tab 09/20/2018 11/10/2018 HYDROcodone-acetaminoph en (NORCO) 5-325 mg tabletIndications:Chron ic pain syndrome,Chronic use of opiate for therapeutic purpose Take 1-2 Tabs by mouth every 6 hours as needed for up to 28 days for Pain. Daily Max: 8 Tabs 112 Tab 10/18/2018 11/10/2018 documented in this encounter Progress Notes * Jean Munoz MD - 08/18/2018 1300 EST Subjective: Patient ID: Liset Viera is an 57 y.o. female. Chief Complaint Patient presents with ??? Chronic Pain HPI Liset is here with her son Aelxi Thinks has a sinus infection Onset strep throat Treated with antibiotics in early July No has sinus pressure x 4 days Sore throat Swallowing OK Bilateral ear pain Headache also Sinuses worse with forward flexion Green discharge Chronic pain On hydrocodone 4/day Tramadol prn, nearly out Takes 3-4x/week Migraines controlled Asthma stable Insomnia off and on Ambien 4x/week, needs refill Did not get CT scan (uncle ) Active problem list, past medical history, past surgical history, medications, allergies, family history and social history were reviewed. Patient Active Problem List Diagnosis ??? Severe major depression without psychotic features (HCC-CMS) ??? Gastroesophageal reflux disease ??? Chronic back pain ??? Obesity ??? Cervicalgia ??? Impaired glucose tolerance ??? Migraine ??? History of peptic ulcer ??? Restless legs syndrome ??? Insomnia ??? Narcolepsy ??? Hip pain ??? Chronic knee pain ??? Tobacco dependence in remission ??? Degeneration of cervical intervertebral disc ??? Anxiety ??? Fatty liver ??? Chronic pain syndrome [...] ??? Achilles tendonitis 12/04/05 ??? Arthritis ??? Asthma ??? Atypical pneumonia 04/05/2012 ??? [...] ??? Pneumonia 04/05/2012 ??? Pneumonia 02/26/2013 ??? Retrocalcaneal bursitis (back of heel) 11/25/01 ??? Right knee pain 04/19/09 Ortho consult E [facility], MRI ? Mensicus tear, recommend PT ??? Shoulder pain 01/11/01 ??? Sinusitis 10/10/01 ??? URI (upper respiratory infection) 08/04/00 ??? Urinary frequency 12/11/03 ??? Urinary retention 06/28/08 ??? UTI 11/20/99 ??? Vaginitis 03/03/00 Current Outpatient Medications on File Prior to Visit Medication Sig Dispense Refill ??? ADVAIR HFA [...] each nostril daily 37.5 g 5 ??? Clindamycin Phosphate (CLINDACIN P) 1 % swab Apply to left 4th interspace daily as instructed 1Each 0 ??? cycloSPORINE (RESTASIS) 0.05 % ophthalmic emulsion Place 1 Drop into both eyes 2 times daily ??? DALIRESP 500 mcg tablet TAKE 1 TABLET BY MOUTH EVERY DAY 90 Tab 4 ??? docusate sodium (COLACE) 100 mg capsule Take 1 Cap by mouth 2 times daily as needed for Constipation. ??? doxycycline (VIBRAMYCIN) 100 mg capsule TAKE 1 CAPSULE BY MOUTH EVERY DAY 90 Cap 4 ??? fexofenadine (JUDITH) 180 mg tablet Take 1 Tab by mouth daily. 90 Tab 3 ??? hydroxypropyl methylcellulose (ISOPTO TEARS) 0.5 % ophthalmic solution Place 1 Drop into both eyes 5 times daily. ??? lancets Brand:one touch ultra, tests 2 times daily 100 Each 2 ??? lancets Brand: One Touch Delica 100 Each 2 ??? levalbuterol (XOPENEX HFA) 45 mcg/actuation inhaler INHALE TWO PUFFS BY MOUTH EVERY SIX HOURS NEEDED 45 g 5 ??? methylphenidate HCl (RITALIN;METHYLIN) 10 mg tablet [...] NEEDED for nausea 30 Tab 3 ??? promethazine (PHENERGAN) 25 mg tablet TAKE ONE TABLET BY MOUTH EVERY SIX HOURS as needed for nausea 25 Tab 0 ??? rOPINIRole (REQUIP) 2 mg tablet TAKE 1 TABLET BY MOUTH NIGHTLY AT BEDTIME 90 Tab 3 ??? sertraline (ZOLOFT) 100 mg tablet TAKE TWO TABLETS BY MOUTH DAILY 180 Tab 3 ??? SPIRIVA RESPIMAT 1.25 mcg/actuation inhaler inhale 2 inhalations (2.5 mcg) daily as directed 12g 1 ??? sumatriptan (IMITREX) 50 mg tablet Take 1 tablet by mouth as needed for migraine. Daily max 2 tablets. 9 Tab 3 ??? tamsulosin (FLOMAX) 0.4 mg capsule Take 1 Cap by mouth daily. 90 Cap 3 No current facility-administered medications on file prior [...] using. ROS - See HPI Objective: BP 124/72 (BP Cuff Location: Left arm, Patient Position: Sitting, BP Cuff Sizes: Adult, regular) Pulse 76 Temp 36.6 ??C (97.8 ??F) (Tympanic) Resp 17 Wt 89.4 kg (197 lb) LMP 01/11/1987 BMI 33.81 kg/m?? Physical Exam alert, NAD Assessment: See below Plan: Liset was [...] for Pain. Daily Max: 8 Tabs - traMADol (ULTRAM) 50 mg tablet; Take 1 Tab by mouth every 6 hours as needed for Pain. Daily Max: 200 mg Stable Consent done today Chronic low back pain, unspecified back pain laterality, with sciatica presence unspecified - pregabalin (LYRICA) 300 mg capsule; TAKE ONE CAPSULE BY MOUTH TWICE DAILY Chronic use of opiate for therapeutic purpose - HYDROcodone-acetaminophen (NORCO) 5-325 mg tablet; Take [...] for Pain. Daily Max: 8 Tabs - traMADol (ULTRAM) 50 mg tablet; Take 1 Tab by mouth every 6 hours as needed for Pain. Daily Max: 200 mg Chronic knee pain, unspecified laterality As above Moderate persistent asthma without complication - ipratropium-albuterol (DUONEB) 0.5 mg-3 mg(2.5 mg base)/3 mL nebulizer solution; Take 3 mL by nebulization every 4 hours as needed for Wheezing. Stable Insomnia, unspecified type - zolpidem (AMBIEN) 5 mg tablet; Take 1 Tab by mouth at bedtime as needed for Sleep. Daily Max: 5 mg Need for influenza vaccination - INFLUENZA VACCINE QUAD (FLUZONE) PF 0.5 ML IM (3 YRS+) Need for shingles vaccine - zoster vaccine recombinant, PF, (SHINGRIX, PF,) IM Injection - vial; Inject 0.5 mL into the muscle once for 1 dose. - zoster vaccine recombinant, PF, (SHINGRIX, PF,) IM Injection - vial; Inject 0.5 mL into the muscle once for 1 dose. Breast cancer screening Call for mammogram Acute non-recurrent maxillary sinusitis - amoxicillin-clavulanate (AUGMENTIN) 875-125 mg per tablet; Take 1 Tab by mouth every 12 hours. Other orders - Cancel: CT LOW DOSE LUNG CANCER ANNUAL SCREENING WO CONTRAST Patient Education Topic: as above Method: Verbal Taught to: Patient Barriers: None Outcomes: Verbalized understanding Return in about 12 weeks (around 11/10/2018) for SERA. documented in this encounter Plan of Treatment Upcoming Encounters Date Type Department Care Team (Late st Contact Info) Description 06/29/2024 14:15 EDT Office Visit [facility] Medicine [facility] [address] [place] [address] Jean Munoz MD [address] [place] [phone] documented as of this encounter Visit Diagnoses Diagnosis Chronic pain syndrome- Primary Chronic low back pain, unspecified back pain laterality, with sciatica presence unspecified Chronic use of opiate for therapeutic purpose Chronic knee pain, unspecified laterality Moderate persistent asthma without complication Unspecified asthma Insomnia, unspecified type Need for influenza vaccination Need for prophylactic vaccination and inoculation against influenza Need for shingles vaccine Need for prophylactic vaccination and inoculation against other viral diseases Breast cancer screening Breast screening, unspecified Acute non-recurrent maxillary sinusitis Screening for osteoporosis- Primary Special screening for osteoporosis Primary narcolepsy without cataplexy Chronic pain syndrome Chronic low back pain Lumbago Chronic use of opiate for therapeutic purpose Pain medication agreement Encounter for long-term (current) use of other medications Screen for colon cancer Special screening for malignant neoplasms, colon documented in this encounter Discontinued Medications Medication Sig Discontinue Reason Start Date End Da te HYDROcodone-acetaminop hen (NORCO) 5-325 mg tabletIndications: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 Daily Max: 8 Tabs Reorder 05/31/2018 08/18/2018 ipratropium-albuterol (DUONEB) 0.5 mg-3 mg(2.5 mg base)/3 mL nebulizer solutionIndications:Mo derate persistent asthma without complication Take 3 mL by nebulization every 4 hours as needed for Wheezing. 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 Daily Max: 200 mg Reorder 05/26/2018 08/18/2018 zolpidem (AMBIEN) 5 mg tabletIndications:Inso mnia, unspecified type Take 1 Tab by mouth at bedtime as needed for Sleep. Daily Max: 5 mg Reorder 05/26/2018 08/18/2018 documented as of this encounter Orders Immunization/Injection Count Last Ordered Date First Ordered Date INFLUENZA VACCINE QUAD (FLUZ ONE) PF 0.5 ML IM (3 YRS+) 1 08/18/2018 documented in this encounter Care Teams Incinerator Operator Relationship Specialty Start Date End Date Jean Munoz MD [address] [place] [phone] PCP - General 12/31/08 Manny Rizzo MD [address] [place] [phone] 04/20/10 documented as of this encounter
--- OUTSIDE RECORDS SUMMARY | 2024-06-10 07:17 | XMS_ITS | Encounter Summary ---
Author Organization [facility] Address [address] [place] [address] Care Team Providers Care Single Resource Boss Name Role Phone Jean Munoz MD Primary Care Provider Manny Rizzo MD Unavailable Reason for Referral * Consult (Routine) - Closed Specialty Diagnoses / Procedures [facility] Referred To Contact Urology Diagnoses Jean Patel MD [address] [place] [phone] Jenny Shukla, AIRAM [address] [place] [phone] Referral ID Status Reason Start Date Expiration Date Visits Requested Visits Authorized [id number] Closed Patient Preference 11/11/2018 1 1 Question Answer Reason for Request: Urinary hesitancy, last seen by Dr. Powers 2013, patient requests follow-up Reason for Visit * Reason Comments Chronic Pain Medication refills Encounter Details Date Type Department Care Team (Late st Contact Info) Description 11/10/2018 13:00 EST [facility] [address] [place] [address] Jean Munoz MD [address] [place] [address] Chronic low back pain, unspecified back pain laterality, with sciatica presence unspecified (Primary Dx); Chronic pain syndrome; Chronic use of opiate for therapeutic purpose; Chronic knee pain, unspecified laterality; Moderate persistent asthma without complication; Panlobular emphysema (HCC-CMS); Insomnia, unspecified type; Nausea; Tinea pedis of left foot; Hesitancy; Dry eyes; Tobacco dependence in remission; Encounter for screening for lung cancer Social [...] Sign Reading Time Taken Comments Blood Pressure 116/68 11/10/2018 1306 EST Pulse 88 11/10/2018 1306 EST Temperature 37 ??C (98.6 ??F) 11/10/2018 1306 EST Respiratory Rate 17 11/10/2018 1306 EST Oxygen Saturation - - Inhaled Oxygen Concentration - - Weight 89.4 kg (197 lb) 11/10/2018 1306 EST Height - - Body Mass Index 33.81 10/11/2018 2150 EST documented in this encounter Functional Status [...] SIX HOURS as needed for nausea 25 tablet 11/10/2018 01/06/2019 zolpidem (AMBIEN) 5 mg tabletIndications:Insomn ia, unspecified type Take 1 tablet by mouth at bedtime as needed for up to 28 days for Sleep. Daily Max: 5 mg 28 tablet 2 11/15/2018 08/30/2019 HYDROcodone-acetaminophe n (NORCO) 5-325 mg tabletIndications:Chroni c pain syndrome,Chronic use of opiate for therapeutic purpose Take 1-2 tablets by mouth every 6 hours as needed for up to 28 days for Pain. Daily Max: 8 tablets 112 tablet 11/15/2018 02/02/2019 HYDROcodone-acetaminophe n (NORCO) 5-325 mg tabletIndications:Chroni c pain syndrome,Chronic use of opiate for therapeutic purpose Take 1-2 tablets by mouth every 6 hours as needed for up to 28 days for Pain. Daily Max: 8 tablets 112 tablet 12/13/2018 02/02/2019 HYDROcodone-acetaminophe n (NORCO) 5-325 mg tabletIndications:Chroni c pain syndrome,Chronic use of opiate for therapeutic purpose Take 1-2 tablets by mouth every 6 hours as needed for up to 28 days for Pain. Daily Max: 8 tablets 112 tablet 01/10/2019 02/02/2019 documented in this encounter Progress Notes * Jean Munoz MD - 11/10/2018 1300 EST Subjective: Patient ID: Liset Viera is an 57 y.o. female. Chief Complaint Patient presents with ??? Chronic Pain Medication refills HPI Liset is a 57-year-old female here for follow-up of chronic pain. Accompanied by her son. Her daughter has had endometrial cancer and another daughter has had throat cancer. This has been stressful for her. She has quit smoking previously. Stopped marijuana before [facility] this past year because itwas hard on her throat. Continues on hydrocodone 4/day. Also on pregabalin. Uses tramadol about once per week. This is somewhat variable. Opiate consent done at last visit. Reports pain is mostly in her back and her knees. [facility] report reviewed today. Prescription for methylphenidate filled on 10/18/[address] Bacon. Last prescription for hydrocodone filled 10/15/18. Last prescription for zolpidem filled 10/13/18. Also moderate persistent asthma/COPD, had pneumonia in September, has completed antibiotics and prednisone. Still taking doxycycline daily along with Advair, Daliresp, Spiriva. Chronic insomnia, still using zolpidem. Needs prescription. Has narcolepsy followed by Dr. Bacon Also has a toe problem, had blood blister last summer. Still has problem in that area, has used topical treatments including clindamycin. Used antifungal. Still has urinary hesitancy. Wants to follow-up with urology. Intermittent nausea, uses Phenergan and Zofran as needed. Still has dry eyes, plans to call eye doctor for follow-up. Had flu shot, has not had Shingrix Mammogram pending Active problem list, past medical history, past [...] Pneumonia due to infectious organism 02/26/2013 09/29/18 [facility] ??? Retrocalcaneal bursitis (back of heel) [...] every 4 hours as needed for Wheezing. (Patient not taking: Reported on 10/11/2018) 3 mL 3 ??? lancets Brand:one touch ultra, tests 2 times daily (Patient not taking: Reported on 10/11/2018) 100 Each 2 ??? levalbuterol (XOPENEX HFA) [...] MOUTH TWICE DAILY 60 Cap 5 ??? rOPINIRole (REQUIP) 2 mg tablet TAKE 1 TABLET BY MOUTH NIGHTLY AT BEDTIME 90 Tab 3 ??? sertraline (ZOLOFT) 100 mg tablet TAKE TWO TABLETS BY MOUTH DAILY 180 Tab 3 ??? SPIRIVA RESPIMAT 1.25 mcg/actuation inhaler INHALE TWO PUFFS (2.5 mcg) daily as directed 12 g 0 ??? sumatriptan (IMITREX) 50 mg tablet take 1 tablet by mouth as needed for migraine. daily limit 2tabs 9 Tab 2 ??? tamsulosin (FLOMAX) 0.4 mg capsule Take 1 Cap by mouth daily. 90 Cap 3 ??? traMADol (ULTRAM) 50 mg tablet Take 1 Tab by mouth every 6 hours as needed for Pain. Daily Max:200 mg 60 Tab 0 ??? zoster vaccine recombinant, PF, (SHINGRIX, PF,) IM Injection - vial Inject 0.5 mL into the muscle once for 1 dose. (Patient not taking: Reported on 09/14/2018) 1 Each 0 ??? [START ON 02/16/2019] zoster vaccine recombinant, PF, (SHINGRIX, PF,) IM [...] Last attempt to quit: 09/13/2012 Years since quittin.1 ??? Smokeless tobacco: Never Used Substance Use Topics ??? Alcohol use: No Comment: rarely ??? Drug use: No Comment: no longer using. ROS - See HPI Objective: BP 116/68 (BP Cuff Location: Left arm, Patient Position: Sitting, BP Cuff Sizes: Adult, regular) Pulse 88 Temp 37 ??C (98.6 ??F) (Tympanic) Resp 17 Wt 89.4 kg (197 lb) LMP 01/11/1987 BMI 33.81 kg/m?? Physical Exam Alert, NAD. Inspection of left foot reveals some flaking and fissuring at the interdigital space between the left fourth and fifth toe. Assessment: See below Plan: Liset was seen today for chronic pain. Diagnoses and all orders for this visit: Chronic low back pain, unspecified back pain laterality, with sciatica presence unspecified Chronic pain syndrome Chronic use of opiate for therapeutic purpose - HYDROcodone-acetaminophen (NORCO) 5-325 mg tablet; Take 1-2 tablets by mouth every 6 hours as needed for up to 28 days for Pain. Daily Max: 8 tablets - HYDROcodone-acetaminophen (NORCO) 5-325 mg tablet; Take 1-2 tablets by mouth every 6 hours as needed for up to 28 days for Pain. Daily Max: 8 tablets - HYDROcodone-acetaminophen (NORCO) 5-325 mg tablet; Take 1-2 tablets by mouth every 6 hours as needed for up to 28 days for Pain. Daily Max: 8 tablets And symptoms/agreement up-to-date. Last urine screen last February. Functional assessment done today. [facility] report done today. Seems stable. Will renew hydrocodone and recheck in 12 weeks. Chronic knee pain, unspecified laterality As above Moderate persistent asthma without complication Panlobular emphysema (HCC-CMS) Controlled, follow-up per pulmonology Insomnia, unspecified type - zolpidem (AMBIEN) 5 mg tablet; Take 1 tablet by mouth at bedtime as needed for up to 28 days for Sleep. Daily Max: 5 mg Nausea - promethazine (PHENERGAN) 25 mg tablet; TAKE ONE TABLET BY MOUTH EVERY SIX HOURS as needed for nausea Tinea pedis of left foot We discussed trial of topical clotrimazole antifungal cream or equivalent twice daily until resolved. Hesitancy Last seen by Dr. Powers in urology in 2013, she would like to have a follow-up visit for this, order placed. Dry eyes Follow-up with her eye doctor Tobacco dependence in remission Encounter for screening for lung cancer - CT LOW DOSE LUNG CANCER ANNUAL SCREENING WO CONTRAST Patient Education Topic: as above Method: Verbal Taught to: Patient Barriers: None Outcomes: Verbalized understanding Return in about 12 weeks (around 02/02/2019) for PE. documented in this encounter Plan of Treatment Upcoming Encounters Date Type Department Care Team (Late st Contact Info) Description 06/29/2024 14:15 EDT Office Visit [facility] [address] [place] [address] Jean Munoz MD [address] [place] [phone] Scheduled Referrals Name Type Priority Associated Diagnoses Orde r Schedule AMB CONS/FOLLOW UP UROLOGY Outpatient Referral Routine Hesitancy Ordered: 11/11/2018 documented as of this encounter Visit Diagnoses Diagnosis Chronic low back pain, unspecified back pain laterality, with sciatica presence unspecified- Primary Chronic pain syndrome Chronic use of opiate for therapeutic purpose Chronic knee pain, unspecified laterality Moderate persistent asthma without complication Unspecified asthma Panlobular emphysema (HCC-CMS) Other emphysema Insomnia, unspecified type Nausea Nausea alone Tinea pedis of left foot Dermatophytosis of foot Hesitancy Urinary hesitancy Dry eyes Tear film insufficiency, unspecified Tobacco dependence in remission Personal history [...] End Da te lancetsIndications:Impa ired glucose tolerance Brand: Jymob 03/04/2017 11/10/2018 amoxicillin-clavulanate (AUGMENTIN) 875-125 mg per tabletIndications:Acute non-recurrent maxillary sinusitis Take 1 Tab by mouth every 12 hours. 08/18/2018 11/10/2018 Amoxicillin 500 mg tablet Take by mouth. Patient Stopped Taking 07/13/2018 9 predniSONE (DELTASONE) 20 mg tablet Take 40 mg by mouth. Therapy completed 07/13/2018 11/10/2018 HYDROcodone-acetaminoph en (NORCO) 5-325 mg tabletIndications:Chron ic pain syndrome,Chronic use of opiate for therapeutic purpose Take 1-2 Tabs by mouth every 6 hours as needed for up to 28 days for Pain. Daily Max: 8 Tabs Reorder 10/18/2018 11/10/2018 HYDROcodone-acetaminoph en (NORCO) 5-325 mg tabletIndications:Chron ic pain syndrome,Chronic use of opiate for therapeutic purpose Take 1-2 Tabs by mouth every 6 hours as needed for up to 28 days for Pain. Daily Max: 8 Tabs Reorder 09/20/2018 11/10/2018 HYDROcodone-acetaminoph en (NORCO) 5-325 mg tabletIndications:Chron ic pain syndrome,Chronic use of opiate for therapeutic purpose Take 1-2 Tabs by mouth every 6 hours as needed for up to 28 days for Pain. Daily Max: 8 Tabs Reorder 08/23/2018 11/10/2018 zolpidem (AMBIEN) 5 mg tabletIndications:Insom yesi, unspecified type Take 1 Tab by mouth at bedtime as needed for Sleep. Daily Max: 5 mg Reorder 08/18/2018 11/10/2018 promethazine (PHENERGAN) 25 mg tablet TAKE ONE TABLET BY MOUTH EVERY SIX HOURS as needed for nausea Reorder 09/19/2018 11/10/2018 documented as of this encounter Historical Medications * This list may reflect changes made after this encounter. Medication Sig Dispensed Refills Start Date End Date Amoxicillin 500 mg tablet Take by mouth. 07/13/2018 11/10/2018 predniSONE (DELTASONE) 20 mg tablet Take 40 mg by mouth. 07/13/2018 11/10/2018 added in this encounter Care Teams Single Resource Boss Relationship Specialty Start Date End Date Jean Munoz MD [address] [place] [phone] PCP - General 12/31/08 Manny Rizzo MD [address] [place] [phone] 04/20/10 documented as of this encounter
--- OUTSIDE RECORDS SUMMARY | 2024-06-10 07:17 | XMS_ITS | Encounter Summary ---
Author Organization [facility] Address [address] [place] [address] Care Team Providers Care Information Engineer Name Role Phone Jean Munoz MD Primary Care Provider Manny Rizzo MD Unavailable Encounter Details Date Type Department Care Team (Late st Contact Info) Description 07/07/2018 Phlebotomy Only [facility] [address] [place] [address] Windmill Mechanic, Outpatient Social History Tobacco Use Types Packs/Day Years [...] Visit [facility] [address] [place] [address] Jean Munoz MD [address] [place] [address] documented as of this encounter Visit Diagnoses Not on filedocumented in this encounter Care Teams Information Engineer Relationship Specialty Start Date End Date Jean Munoz MD [address] [place] [phone] PCP - General 12/31/08 Manny Rizzo MD [address] [place] [phone] 04/20/10 documented as of this encounter
--- OUTSIDE RECORDS SUMMARY | 2024-06-10 07:17 | XMS_ITS | Encounter Summary ---
Author Organization [facility] Address [address] [place] [address] Care Team Providers Care Tower Hoist Operator Name Role Phone Jean Munoz MD Primary Care Provider Manny Rizzo MD Unavailable Encounter Details Date Type Department Care Team (Late st Contact Info) Description 07/07/2018 Orders Only [address] [address] Yadira Mccauley, RN Social History Tobacco Use Types Packs/Day [...] [facility] [address] [place] [address] Jean Munoz MD [address] [place] [address] documented as of this encounter Visit Diagnoses Not on filedocumented in this encounter Care Teams Tower Hoist Operator Relationship Specialty Start Date End Date Jean Munoz MD [address] [place] [address] PCP - General 12/31/08 Manny Rizzo MD [address] [place] [phone] 04/20/10 documented as of this encounter
--- OUTSIDE RECORDS SUMMARY | 2024-06-10 07:17 | XMS_ITS | Encounter Summary ---
Author Organization [facility] Address [address] [place] [address] Care Team Providers Care Prop And Scenery Maker Name Role Phone Jean Munoz MD Primary Care Provider Manny Rizzo MD Unavailable Reason for Visit * Reason Onset Date Comments Prior Auth, Medication 09/19/2018 Doxycycli ne caps Encounter Details Date Type Department Care Team (Late st Contact Info) Description 09/19/[address] [phone] Kaitlyn Montero LPN [address] [place] [address] Prior Auth, Medication (Doxycycline caps ) Social History Tobacco Use Types Packs/Day [...] Refills Start Date End Da te doxycycline (VIBRAMYCIN) 100 mg capsuleIndications:Rosace a TAKE 1 CAPSULE BY MOUTH EVERY DAY 90 Cap 3 09/21/2018 08/30/2019 documented in this encounter Miscellaneous Notes * Telephone Encounter - Jean Munoz MD - 09/21/2018 1039 EST New prescription done * Telephone Encounter - Kaitlyn Montero LPN - 09/20/2018 1438 EST Received fax back from [place] Medicaid stating a prior authorization is not required. Medication was rejected at pharmacy because it exceeds the 6 refill limit. Pharmacy needs new script. New prescription pended and routed to Dr. Munoz for signature. Kaitlyn Montero LPN * Telephone Encounter - Kaitlyn Montero LPN - 09/19/2018 0920 EST PA sent to insurance ([place] Medicaid) for Doxycycline capsules. Waiting for response. Kaitlyn Montero LPN documented in this encounter Plan of Treatment Upcoming Encounters Date Type Department Care Team (Late st Contact Info) Description 06/29/2024 14:15 EDT Office Visit [facility] [address] [address] Jean Munoz MD [address] [place] [address] [...] te doxycycline (VIBRAMYCIN) 100 mg capsuleIndications:Rosac ea TAKE 1 CAPSULE BY MOUTH EVERY DAY Reorder 04/05/2018 09/20/2018 documented as of this encounter Care Teams Prop And Scenery Maker Relationship Specialty Start Date End Date Jean uMnoz MD [address] [place] [address] PCP - General 12/31/08 Manny Rizzo MD [address] [place] [phone] 04/20/10 documented as of this encounter
--- OUTSIDE RECORDS SUMMARY | 2024-06-10 07:17 | XMS_ITS | Encounter Summary ---
Author Organization [facility] Address [address] [place] [address] Care Team Providers Care Traffic Control Operator Name Role Phone Jean Munoz MD Primary Care Provider Manny Rizzo MD Unavailable Reason for Referral * Sleep Study (Routine) - Specialty Report Received Specialty Diagnoses / Procedures [facility] Referred To Contact Diagnoses KATJA (obstructive sleep apnea) Procedures PAP TITRATION POLYSOMNOGRAM (CPAP/BIPAP TITRATION POLYSOMNOGRAM) [address] [address] [place] [address] Referral ID Status Reason Start Date Expiration Date V isits Requested Visits Authorized [id number] Specialty Report Received 09/14/2018 1 1 Reason for Visit * Reason Comments Follow-up Encounter Details Date Type Department Care Team (Late st Contact Info) Description 09/14/2018 14:30 EST Office Visit [facility] [address] [place] [address] KATJA (obstructive sleep apnea) (Primary Dx); Primary [...] Sign Reading Time Taken Comments Blood Pressure 118/78 09/14/2018 1430 EST Pulse 89 09/14/2018 1430 EST Temperature - - Respiratory Rate 16 09/14/2018 1430 EST Oxygen Saturation 98% 09/14/2018 1430 EST Inhaled Oxygen Concentration - - Weight 90.7 kg (200 lb) 09/14/2018 1430 EST Height 162.6 cm (5' 4) 09/14/2018 1430 EST Body Mass Index 34.33 09/14/2018 1430 EST documented in this encounter Functional Status [...] Progress Notes * Tiana Bacon MD - 09/14/2018 1430 EST Name: Liset Viera : 1960 Date of Visit: 09/14/2018 HPI: Liset Viera is 57 y.o. 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 She also has a history of moderate KATJA (AHI = 17.3/hr) which was diagnosed on 04/01/2017. A presciption for auto CPAP 5-15 cm H2O (without titration ) was issued. Initally she had been doing well on CPAP - very good usage and well controlled KATJA. Today, she states she she has not used her machine much because she has been taking off her mask. She has initially tired nasal pillows which irritated her nostril. She is currently using a nasal mask. She also reports that she is having trouble tolerating the pressure. Compliance Report 06/17/2018 - 09/14/2018 Usage > = 4 hours: 1 day (1%) Average usage: 6 h and 18 min AHI = 0 Median :ressure: 7 cwp, 95th percentile: 12 cwp Median leak: 27.6 LPM; 95th percentile: 63.6 LPM Outpatient Medications Marked as Taking for the 09/14/18 encounter (Office Visit) with Tiana Bacon MD [...] by mouth daily. 90 Tab 3 ??? [START ON 10/18/2018] HYDROcodone-acetaminophen (NORCO) 5-325 mg tablet Take 1-2 Tabs by mouth every 6 hours as needed for up to 28 days for Pain. Daily Max: 8 Tabs 112 Tab 0 ??? [START ON 09/20/2018] HYDROcodone-acetaminophen (NORCO) 5-325 mg tablet Take 1-2 [...] Daily Max:200 mg 60 Tab 0 ??? zolpidem (AMBIEN) 5 mg tablet Take 1 Tab by mouth at bedtime as needed for Sleep. Daily Max: 5 mg 30 Tab 2 Allergies Allergen Reactions ??? Toradol [Ketorolac Tromethamine] Hives ??? Motrin [Ibuprofen] Itching ROS: A ten point ROS was performed and was negative except for pertinent positives in the HPI. EXAM: Vitals: 09/14/18 1430 BP: 118/78 BP Cuff Location: Right arm Patient Position: Sitting BP Cuff Sizes: Adult, regular Pulse: 89 Resp: 16 SpO2: 98% Weight: 90.7 kg (200 lb) Height: 162.6 cm (64) A/P: Liset Viera is a 57 y.o. 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 She continues to take methylphenidate - no issues reported. She states that she is not able to tolerate CPAP and has had difficulty keeping her mask on. Duringone hospitalization she recalls using BPAP and tolerating it well. A PAP titration will be ordered (BPAP titration starting at 10/6 cm H2O). Follow up pending results of testing. I spent a total of 20 minutes in face to face time with this patient and > 50 percent of that time was spent in counseling and coordination of care as described in the progress note. Tiana Bacon MD 09/14/2018 documented in this encounter Plan of Treatment Upcoming Encounters Date Type Department Care Team (Late st Contact Info) Description 06/29/2024 14:15 EDT Office Visit [address] [address] Jean Munoz MD [address] [place] [phone] Scheduled Orders Name Type Priority Associated Diagnoses Orde r Schedule PAP TITRATION POLYSOMNOGRAM (CPAP/BIPAP TITRATION POLYSOMNOGRAM) Sleep Center Routine KATJA (obstructive sleep apnea) Ordered: 09/14/2018 documented as of this encounter Visit Diagnoses [...] colon documented in this encounter Care Teams Traffic Control Operator Relationship Specialty Start Date End Date Jean Munoz MD [address] [place] [phone] PCP - General 12/31/08 Manny Rizzo MD [address] [place] [phone] 04/20/10 documented as of this encounter
--- OUTSIDE RECORDS SUMMARY | 2024-06-10 07:17 | XMS_ITS | Encounter Summary ---
Author Organization [facility] Address [address] [place] [address] Care Team Providers Care Mat Worker Name Role Phone Jean Munoz MD Primary Care Provider Manny Rizzo MD Unavailable Reason for Visit * Reason Comments Other Encounter Details Date Type Department Care Team (Late st Contact Info) Description 01/05/2019 [facility] [address] [place] [address] Jean Munoz MD [address] [place] [phone] Other Social History Tobacco Use Types [...] EVERY SIX HOURS NEEDED for nausea 25 tablet 01/06/2019 02/13/2019 sumatriptan (IMITREX) 50 mg tabletIndications:Migrai ne without status migrainosus, not intractable, unspecified migraine type take 1 tablet by mouth as needed for migraine. daily limit, 2 tablets 9 tablet 1 01/06/2019 03/07/2019 documented in this encounter Miscellaneous Notes * Telephone Encounter - Lizz Negro RN - 01/06/2019 0808 EDT Medication(s) Requested: phenergan 25 mg tab, imitrex 50 mg tab [facility] [place] [place] Is patient out of medication? Unknown Last Refill Date: 11/10/18 Last Visit Date with Ordering Provider: 11/10/18 Next Non-Acute Visit Date Scheduled with Care Team: Yes. 01/12/19 LIZZ NEGRO RN 01/06/2019 8:08 documented in this encounter Plan of Treatment Upcoming Encounters Date Type Department Care Team (Late st Contact Info) Description 06/29/2024 14:15 EDT Office Visit [facility] [address] [place] [address] Jean Munoz MD [address] [place] [phone] documented as of this encounter Visit Diagnoses [...] for migraine. daily limit 2 tabs Reorder 10/14/2018 01/06/2019 promethazine (PHENERGAN) 25 mg tabletIndications:Nausea TAKE ONE TABLET BY MOUTH EVERY SIX HOURS as needed for nausea Reorder 11/10/2018 01/06/2019 documented as of this encounter Care Teams Mat Worker Relationship Specialty Start Date End Date Jean Munoz MD [address] [place] [phone] PCP - General 12/31/08 Manny Rizzo MD [address] [place] [phone] 04/20/10 documented as of this encounter
--- OUTSIDE RECORDS SUMMARY | 2024-06-10 07:17 | XMS_ITS | Encounter Summary ---
Author Organization [facility] Address [address] [place] [address] Care Team Providers Care Loss Prevention Investigator Name Role Phone Jean Munoz MD Primary Care Provider Manny Rizzo MD Unavailable Reason for Visit * Reason Onset Date Comments Prior Auth, Medication 12/13/2018 fexofenad ine Encounter Details Date Type Department Care Team (Late st Contact Info) Description 12/13/[address] [address] Kaitlyn Montero LPN [address] [place] [address] Prior Auth, Medication (fexofenadine) Social History Tobacco [...] 1 tablet by mouth daily. 90 tablet 12/14/2018 04/03/2019 documented in this encounter Miscellaneous Notes * Telephone Encounter - Kaitlyn Montero LPN - 12/14/2018 0939 EDT Fax received from [place] Medicaid stating that PA was not required. PA approval already on file until 05/26/2019. Called pharmacy and spoke with pharmacist. Pharmacist stated that the medication does not need a prior authorization. [place] Medicaid is requesting a new script for medication. Pended medicationand sent to POD. Kaitlyn Montero LPN * Telephone Encounter - Kaitlyn Montero LPN - 12/13/2018 0932 EDT PA sent to insurance ([place] Medicaid) for Fexofenadine. Waiting for response. Kaitlyn Montero LPN documented in this encounter Plan of Treatment Upcoming Encounters Date Type Department Care Team (Late st Contact Info) Description 06/29/2024 14:15 EDT Office Visit [facility] Medicine [facility] [address] [place] [address] Jean Munoz MD [address] [place] [address] documented as of this encounter Visit Diagnoses Not on filedocumented in this encounter Discontinued Medications Medication Sig Discontinue Reason Start Date End Da te fexofenadine (JUDITH) 180 mg tablet Take 1 tablet by mouth daily. Reorder 12/12/2018 12/14/2018 documented as of this encounter Care Teams Loss Prevention Investigator Relationship Specialty Start Date End Date Jean Munoz MD [address] [place] [phone] PCP - General 12/31/08 Manny Rizzo MD [address] [place] [phone] 04/20/10 documented as of this encounter
--- OUTSIDE RECORDS SUMMARY | 2024-06-10 07:17 | XMS_ITS | Encounter Summary ---
Author Organization [facility] Address [address] [place] [address] Care Team Providers Care Other Sports Official Name Role Phone Jean Munoz MD Primary Care Provider Manny Rizzo MD Unavailable Afia Valle MD Unavailable Jesi Leong REQUIREMENTS ENGINEER Unavailable SaloJesi shanks REQUIREMENTS ENGINEER Unavailable Reason for Visit * Reason Onset Date Comments Medications Refill 01/09/2019 Encounter Details Date Type Department Care Team (Late st Contact Info) Description 01/09/2019 Refill [facility] Sleep Program - [address] [address] Tiana Bacon [address] [place] [address] Medications Refill Social History Tobacco [...] tabs by mouth in the morning. 60 tablet 01/10/2019 02/08/2019 methylphenidate HCl (RITALIN;METHYLIN) 10 mg tablet Take one tab in the afternoon for narcolepsy. 30 tablet 01/10/2019 02/08/2019 documented in this encounter Miscellaneous Notes * Telephone Encounter - Corrina Ac RN - 01/10/2019 0842 EDT Pt last seen by on 09/14/18. Refill requests for methylphenidate pended to . * Telephone Encounter - Britney Tai - 01/09/2019 1229 EDT Medication Refill Medication(s) Requested: Ritalin 20 mg Ritalin 10 mg Pharmacy (reconcile pharmacy list): [facility] Is patient out of medication no 2 days left Britney Tai 01/09/201912:31 documented in this encounter Plan of Treatment Upcoming Encounters Date Type Department Care Team (Late st Contact Info) Description 06/29/2024 14:15 EDT Office Visit [facility] [address] [place] [address] Jean Munoz MD [address] [place] [address] documented as of this encounter Visit Diagnoses Not on filedocumented in this encounter Discontinued Medications Medication Sig Discontinue Reason Start Date End Da te methylphenidate HCl (RITALIN;METHYLIN) 10 mg tablet Take one tab in the afternoon for narcolepsy. Reorder 12/13/2018 01/10/2019 methylphenidate HCl (RITALIN;METHYLIN) 20 mg tablet Take 2 tabs by mouth in the morning. Reorder 12/13/2018 01/10/2019 documented as of this encounter Additional Health Concerns Infection Onset Date Last Indicated Resolved Time R/O COVID-19 05/15/2022 05/15/2022 05/20/2022 22:1 6 EDT R/O COVID-19 11/14/2022 11/14/2022 11/14/2022 19:1 6 EST documented as of this encounter Care Teams Other Sports Official Relationship Specialty Start Date End Date Jean Munoz MD [address] [place] [phone] PCP - General 12/31/08 Manny Rizzo MD [facility] [place] [phone] 04/20/10 Afia Valle MD [address] [place] [address] [address] [place] [phone] Care Team Radiation Oncology 07/02/21 Jesi Leong, [facility] [address] [place] [phone] Pelletizer 12/24/21 09/20/22 Jesi Leong, [facility] [address] [place] [phone] Behavioral Health PelletizerC Software Engineer Care 10/19/22 01/23/24 documented as of this encounter
--- OUTSIDE RECORDS SUMMARY | 2024-06-10 07:17 | XMS_ITS | Encounter Summary ---
Author Organization [facility] Address [address] [place] [address] Care Team Providers Care Gang Pusher Name Role Phone Jean Munoz MD Primary Care Provider Manny Rizzo MD Unavailable Reason for Visit * Reason Onset Date Comments Results 07/07/2018 Encounter Details Date Type Department Care Team (Late st Contact Info) Description 07/07/2018 Telephone [facility] [address] [place] [address] Jean Munoz MD [address] [place] [phone] Results Social History Tobacco Use Types [...] Miscellaneous Notes * Telephone Encounter - Lena Bell RN - 07/13/2018 0919 EDT Images from the original note were not included. Spoke with patient and relayed Dr. Munoz's message Went to urgent care today and found out she's positive for strept throat. She was prescribed ABX and prednisone. Positive for sore throat and fatigue. She's not having fever, no SOB, no dysuria. Home care given, see below Advised pt to call office if symptoms do not improve Pt understands and agrees with plan. No questions at this time. No communication barriers identified. Homecare given: Strep throat is a bacterial infection that causes sudden, severe sore throat and fever. Strep throat, which is caused by bacteria called streptococcus, is treated with antibiotics. Sometimes a strep test is necessary to tell if the sore throat is caused by strep bacteria. Treatment can help ease symptoms and may prevent future problems. Follow-up care is a horton part of your treatment and safety. Be sure to make and go to all appointments, and call your doctor if you are having problems. It's also a good idea to know your test resultsand keep a list of the medicines you take. How can you care for yourself at home? ?? Take your antibiotics as directed. Do not stop taking them just because you feel better. You need to take the full course of antibiotics. ?? Strep throat can spread to others until 24 hours after you begin taking antibiotics. During thistime, you should avoid contact with other people at work or home, especially infants and children. Do not sneeze or cough on others, and wash your hands often. Keep your drinking glass and eating utensils separate from those of others, and wash these items well in hot, soapy water. ?? Gargle with warm salt water at least once each hour to help reduce swelling and make your throatfeel better. Use 1 teaspoon of salt mixed in 8 fluid ounces of warm water. ?? Take an nkds-evh-xyfcwsg pain medication, such as acetaminophen (Tylenol), ibuprofen (Advil, Motrin), or naproxen (Aleve). Read and follow all instructions on the label. ?? Try an myuw-zbp-lghubwp anesthetic throat spray or throat lozenges, which may help relieve throat pain. ?? Drink plenty of fluids. Fluids may help soothe an irritated throat. Hot fluids, such as tea or soup, may help your throat feel better. ?? Eat soft solids and drink plenty of clear liquids. Flavored ice pops, ice cream, scrambled eggs,sherbet, and gelatin dessert (such as Jell-O) may also soothe the throat. ?? Get lots of rest. ?? Do not smoke, and avoid secondhand smoke. If you need help quitting, talk to your doctor about stop-smoking programs and medicines. These can increase your chances of quitting for good. ?? Use a vaporizer or humidifier to add moisture to the air in your bedroom. Follow the directions for cleaning the machine. When should you call for help? Call your doctor now or seek immediate medical care if: ? You have a new or higher fever. ? You have a fever with a stiff neck or severe headache. ? You have new or worse trouble swallowing. ? Your sore throat gets much worse on one side. ? Your pain becomes much worse on one side of your throat. ??Watch closely for changes in your health, and be sure to contact your doctor if: ? You are not getting better after 2 days (48 hours). ? You do not get better as expected. * Telephone Encounter - Jean Munoz MD - 07/13/2018 1310 EDT Blood cultures staph coag negative and single bottles suggests contaminant Please call patient to let her know and follow-up, does she have fever, chills, sweats, cough, dysuria, other signs of infection? If none, recommend follow-up as scheduled thanks * Telephone Encounter - Astrid Gamez RN - 07/10/2018 1025 EDT Blood culture in process * Telephone Encounter - Lena Bell RN - 07/08/2018 0900 EDT Bacterial culture blood is still in process * Telephone Encounter - Jean Munoz MD - 07/07/2018 1631 EDT Reviewed results gram-positive cocci resembling staph isolated in 1 bottle, unclear if this represents contaminant, will await final results * Telephone Encounter - Yadira Mccauley RN - 07/07/2018 1549 EDT Spoke with Micro. Pt was in ED and discharged has positive blood cultures; blood culture in lab states in process. They incubate plates and will have more information tomorrow once the plate has grown. * Telephone Encounter - Gina [place] - 07/07/2018 1546 EDT Reason for Call: Results Summary/Symptoms: Lab called . positive blood cultures. Flagged for staff . Isolated at 19 hrs Onset and Duration? na Appointment Offered? No Gina [place] 07/07/2018 15:47 documented in this encounter Plan of Treatment Upcoming Encounters Date Type Department Care Team (Late st Contact Info) Description 06/29/2024 14:15 EDT Office Visit [facility] [address] [place] [address] Jean Munoz MD [address] [place] [phone] documented as of this encounter Visit Diagnoses Not on filedocumented in this encounter Care Teams Gang Pusher Relationship Specialty Start Date End Date Jean Munoz MD [address] [place] [phone] PCP - General 12/31/08 Manny Rizzo MD [address] [place] [address] 04/20/10 documented as of this encounter
--- OUTSIDE RECORDS SUMMARY | 2024-06-10 07:17 | XMS_ITS | Encounter Summary ---
Author Organization [facility] Address [address] [place] [address] Care Team Providers Care Power Generation Plant Operator Name Role Phone Jean Munoz MD Primary Care Provider Manny Rizzo MD Unavailable Reason for Visit * Reason Onset Date Comments Medications Refill 12/12/2018 Encounter Details Date Type Department Care Team (Late st Contact Info) Description 12/12/2018 Refill [facility] [address] [place], [place] [phone] Jean Munoz MD [address] [place] [phone] Medications Refill Social History Tobacco [...] 1 tablet by mouth daily. 90 tablet 12/12/2018 12/14/2018 documented in this encounter Miscellaneous Notes * Telephone Encounter - Gina [place] - 12/12/2018 1148 EDT Medication(s) Requested: Fexofenadine Preferred Pharmacy: [facility] Is patient out of medication? Unknown Last Refill Date: 07/14/18 Last Visit Date with Ordering Provider: 11/10/18 Next Non-Acute Visit Date Scheduled with Care Team: Yes. 01/31/19 Gina Lawrence 12/12/2018 11:49 documented in this encounter Plan of Treatment Upcoming Encounters Date Type Department Care Team (Late st Contact Info) Description 06/29/2024 14:15 EDT Office Visit [facility] Medicine [facility] [address] [place] [address] Jean Munoz MD [address] [place] [phone] documented as of this encounter Visit Diagnoses Not on filedocumented in this encounter Discontinued Medications Medication Sig Discontinue Reason Start Date End Da te fexofenadine (JUDITH) 180 mg tablet Take 1 Tab by mouth daily. Reorder 07/14/2018 12/12/2018 documented as of this encounter Care Teams Power Generation Plant Operator Relationship Specialty Start Date End Date Jean Munoz MD [address] [place] [phone] PCP - General 12/31/08 Manny Rizzo MD [address] [place] [phone] 04/20/10 documented as of this encounter
--- OUTSIDE RECORDS SUMMARY | 2024-06-10 07:17 | XMS_ITS | Encounter Summary ---
Author Organization [facility] Address [address] [place] [address] Care Team Providers Care Binding Nicker Name Role Phone Jean Munoz MD Primary Care Provider Manny Rizzo MD Unavailable Reason for Visit * Reason Onset Date Comments Medication Management 11/11/2018 Encounter Details Date Type Department Care Team (Late st Contact Info) Description 11/11/[address] [facility] [address] [place] [address] Jean Munoz MD [address] [place] [phone] Medication Management Social History Tobacco Use [...] 2 times daily. 1 vial 11/11/2018 10/06/2023 documented in this encounter Miscellaneous Notes * Telephone Encounter - Esme Yoon RN - 11/11/2018 1656 EST Call to pt and advised as per RL. She is out of drops and has not called her eye dr. Issued one bottle and advised further refillls from eye provider. * Telephone Encounter - Jean Munoz MD - 11/11/2018 1643 EST Yes, if this was prescribed by her eye Dr. it would be preferable for them to renew it. However if she is out and unable to reach them, it is OK to renew for now, thanks * Telephone Encounter - Esme Yoon RN - 11/11/2018 1331 EST What I see in the office notes is RL advising pt to discuss dry eyes with her eye doctor, no mention seen of rx. Will confirm w. RL before calling pt. * Telephone Encounter - Kavita Baxter - 11/11/2018 1141 EST Reason for Call: Medication Management Summary/Symptoms: Patient was seen in office yesterday by Dr. Munoz. They discussed him prescribing Restasis and thought it had been ordered. Do not see a script for this. Onset and Duration? Appointment Offered? N/A Kavita Baxter 11/11/2018 11:41 documented in this encounter Plan of Treatment Upcoming Encounters Date Type Department Care Team (Late st Contact Info) Description 06/29/2024 14:15 EDT Office Visit [facility] [address] [place], [place] [phone] Jean Munoz MD [address] [place] [phone] documented as of this encounter Visit Diagnoses Not on filedocumented in this encounter Discontinued Medications Medication Sig Discontinue Reason Start Date End Da te cycloSPORINE (RESTASIS) 0.05 % ophthalmic emulsion Place 1 Drop into both eyes 2 times daily Reorder 10/25/2014 11/11/2018 documented as of this encounter Care Teams Binding Nicker Relationship Specialty Start Date End Date Jean Munoz MD [address] [place] [phone] PCP - General 12/31/08 Manny Rizzo MD [address] [place] [phone] 04/20/10 documented as of this encounter
--- OUTSIDE RECORDS SUMMARY | 2024-06-10 07:17 | XMS_ITS | Encounter Summary ---
Author Organization [facility] Address [address] [place] [address] Care Team Providers Care Land Conservation Specialist Name Role Phone Jean Munoz MD Primary Care Provider Manny Rizzo MD Unavailable Reason for Visit * Reason Comments Dizziness Patient states two d ays of dizzy spells. Today had episode of extreme dizziness with standing when she fell to the ground, landed on left hip. Denies LOC. Encounter Details Date Type Department Care Team (Late st Contact Info) Description 07/06/2018 14:24 EDT - 07/06/2018 20:58 EDT Emergency [facility] Emergency Department - [place] [address], [place] [address] Sukhwinder Nix PA-C [address] [facility] [address] [place] [id number] Emergency, MD Ismael Dizziness (Primary Dx) Discharge Disposition: Home or Self [...] Sign Reading Time Taken Comments Blood Pressure 112/66 07/06/2018 1429 EDT Pulse - - Temperature 36.7 ??C (98.1 ??F) 07/06/2018 1429 EDT Respiratory Rate 18 07/06/2018 1429 EDT Oxygen Saturation 97% 07/06/2018 1429 EDT Inhaled Oxygen Concentration - - Weight 90.7 kg (200 lb) 07/06/2018 1428 EDT Height - - Body Mass Index 34.33 05/26/2018 1307 EDT documented in this encounter [...] as of this encounter Discharge Diagnoses Diagnosis R42 Dizziness and giddiness-R42[ICD-10-CM] J43.9 Emphysema, unspecified-J43.9[ICD-10-CM] Z87.891 Personal history of nicotine dependence-Z87.891[ICD-10-CM] documented in this encounter Discharge Instructions * Discharge Instructions* Sukhwinder Nix PA - 07/06/2018 19:36 EDT Call your doctor tomorrow for close follow up Use a cane for ambulation. Minimize use of your pain medication as this can contribute to your dizziness Return to ER if fever, severe dizziness, chest pain, worsening breathing, vomiting, or worsening weakness. documented in this encounter Medications at Time of Discharge Medication Sig Dispensed Refills Start Date End Date docusate sodium (COLACE) 100 mg capsule Take 1 Capsule by mouth 2 times daily as needed for Constipation. 09/24/2010 ADVAIR HFA 115-21 mcg/actuation inhalerIndications:Moder ate persistent asthma, unspecified whether complicated INHALE ONE PUFF BY MOUTH TWICE DAILY as directed 12 g 10 04/06/2018 05/26/2019 amLODIPine (NORVASC) 5 mg tabletIndications:Migrai ne without status migrainosus, not intractable, unspecified migraine type Take 1 Tab by mouth daily. 90 Tab 3 05/26/2018 06/18/2019 blood glucose (BLOOD GLUCOSE TEST) test stripsIndications:Impair ed glucose tolerance 1 Strip by misc (non-drug; combo route) route 2 times daily. 100 Each 1 07/05/2018 07/08/2021 Ciclesonide 50 mcg spray,non-aerosolIndicat ions:Seasonal allergic rhinitis, unspecified trigger 1 spray each nostril daily 37.5 g 5 03/03/2018 08/04/2023 Clindamycin Phosphate (CLINDACIN P) 1 % swab Apply to left 4th interspace daily as instructed 1 Each 04/27/2018 08/30/2019 cycloSPORINE (RESTASIS) 0.05 % ophthalmic emulsion Place 1 Drop into both eyes 2 times daily 10/25/2014 11/11/2018 DALIRESP 500 mcg tabletIndications:Chroni c obstructive pulmonary disease, unspecified COPD type ([facility]) TAKE 1 TABLET BY MOUTH EVERY DAY 90 Tab 4 04/06/2018 06/20/2019 doxycycline (VIBRAMYCIN) 100 mg capsuleIndications:Rosac ea TAKE 1 CAPSULE BY MOUTH EVERY DAY 90 Cap 4 04/05/2018 09/20/2018 fexofenadine (JUDITH) 180 mg tablet Take 1 Tab by mouth daily. 90 Tab 3 07/14/2018 12/12/2018 HYDROcodone-acetaminophe n (NORCO) 5-325 mg tabletIndications:Chroni c pain syndrome,Chronic use of opiate for therapeutic purpose Take 1-2 Tabs by mouth every 6 hours as needed for up to 28 days for Pain. Daily Max: 8 Tabs 112 Tab 07/26/2018 08/18/2018 HYDROcodone-acetaminophe n (NORCO) 5-325 mg tabletIndications:Chroni c pain syndrome,Chronic use of opiate for therapeutic purpose Take 1-2 Tabs by mouth every 6 hours as needed for up to 28 days for Pain. Daily Max: 8 Tabs 112 Tab 06/28/2018 08/18/2018 HYDROcodone-acetaminophe n (NORCO) 5-325 mg tabletIndications:Chroni c pain syndrome,Chronic use of opiate for therapeutic purpose Take 1-2 Tabs by mouth every 6 hours as needed for up to 28 days for Pain. Daily Max: 8 Tabs 112 Tab 05/31/2018 08/18/2018 hydroxypropyl methylcellulose (ISOPTO TEARS) 0.5 % ophthalmic solution Place 1 Drop into both eyes 5 times daily. 12/10/2010 10/06/2023 ipratropium-albuterol (DUONEB) 0.5 mg-3 mg(2.5 mg base)/3 mL nebulizer solutionIndications:Mode rate persistent asthma without complication Take 3 mL by nebulization every 4 hours as needed for Wheezing. 3 mL 3 06/01/2017 08/18/2018 lancetsIndications:Impai red glucose tolerance Brand:one touch ultra, tests 2 times daily 100 Each 2 07/05/2018 07/08/2021 lancetsIndications:Impai red glucose tolerance Brand: One Touch Delica 100 Each 2 03/04/2017 11/10/2018 levalbuterol (XOPENEX HFA) 45 mcg/actuation inhalerIndications:Moder ate persistent asthma without complication INHALE TWO PUFFS BY MOUTH EVERY SIX HOURS NEEDED 45 g 5 05/26/2018 08/30/2019 LYRICA 300 mg capsuleIndications:Chron ic low back pain, unspecified back pain laterality, with sciatica presence unspecified TAKE ONE CAPSULE BY MOUTH TWICE DAILY 60 Cap 5 03/08/2018 08/18/2018 methylphenidate HCl (RITALIN;METHYLIN) 10 mg tablet Take one tab in the afternoon for narcolepsy. 30 Tab 06/29/2018 07/26/2018 methylphenidate HCl (RITALIN;METHYLIN) 20 mg tablet Take 2 tabs by mouth in the morning. 60 Tab 06/29/2018 07/26/2018 montelukast (SINGULAIR) 10 mg tabletIndications:Modera te persistent asthma without complication Take 1 Tab by mouth daily. 90 Tab 3 05/26/2018 07/27/2019 omeprazole (PRILOSEC) 40 mg capsuleIndications:Gastr oesophageal reflux disease, esophagitis presence not specified Take 1 Cap by mouth daily. 90 Cap 3 05/26/2018 08/30/2019 ondansetron (ZOFRAN) 4 mg tabletIndications:Nausea TAKE ONE TABLET BY MOUTH DAILY NEEDED for nausea 30 Tab 3 04/04/2018 02/15/2019 promethazine (PHENERGAN) 25 mg tablet Take 1 Tab by mouth every 6 hours as needed for Nausea. 30 Tab 1 05/26/2018 07/22/2018 rOPINIRole (REQUIP) 2 mg tabletIndications:Restle ss legs syndrome TAKE 1 TABLET BY MOUTH NIGHTLY AT BEDTIME 90 Tab 3 05/26/2018 07/21/2019 sertraline (ZOLOFT) 100 mg tabletIndications:Major depressive disorder, recurrent, severe without psychotic features (HCC-CMS) TAKE TWO TABLETS BY MOUTH DAILY 180 Tab 3 05/26/2018 08/30/2019 SPIRIVA RESPIMAT 1.25 mcg/actuation inhalerIndications:Chron ic obstructive pulmonary disease, unspecified COPD type (HCC-CMS) inhale 2 inhalations (2.5 mcg) daily as directed 12 g 1 05/17/2018 11/09/2018 sumatriptan (IMITREX) 50 mg tabletIndications:Migrai ne without status migrainosus, not intractable, unspecified migraine type Take 1 tablet by mouth as needed for migraine. Daily max 2 tablets. 9 Tab 3 06/28/2018 10/13/2018 tamsulosin (FLOMAX) 0.4 mg capsuleIndications:Hesit eloise Take 1 Cap by mouth daily. 90 Cap 3 05/26/2018 08/30/2019 traMADol (ULTRAM) 50 mg tabletIndications:Chroni c pain syndrome,Chronic use of opiate for therapeutic purpose Take 1 Tab by mouth every 6 hours as needed for Pain. Daily Max: 200 mg 60 Tab 05/26/2018 08/18/2018 zolpidem (AMBIEN) 5 mg tabletIndications:Insomn ia, unspecified type Take 1 Tab by mouth at bedtime as needed for Sleep. Daily Max: 5 mg 30 Tab 2 05/26/2018 08/18/2018 documented as of this encounter Discharge Disposition Disposition Code Departure Means Destination Home or Self Alf documented in this encounter ED Notes * Saritha James RN - 07/06/20182056 EDT Pt verbalized understanding of discharge education. Printed instructions given. RR regular and unlabored. Skin pwd. Pt ambulatory to exit. * Kathleen Hernandez RN - 07/06/20182036 EDT Ambulation trial completed- when walking, patient's heart rate remained between 82 and 86; and pulse ox remained between 95% and 97% while ambulating. Provider, Sukhwinder Chamberlain, notified. * Kathleen Hernandez RN - 07/06/2018 1843 EDT Patient has been escorted to the restroom 3 times and has been unable to provide urine specimen. * Kathleen Hernandez RN - 07/06/2018 1528 EDT Assumed care for patient from triage. Patient c/o intermittent dizziness x 4 days. States she fell today after getting out of bed. States my legs gave out and fell. Denies hitting head or LOC. Denies N/V. Patient states she had fever last week and has been coughing the last several days. * Sukhwinder Nix PA - 07/06/2018 1512 EDT DOS: 07/06/2018 Chief Complaint Patient presents with ??? Dizziness Patient states two days of dizzy spells. Today had episode of extreme dizziness with standing when she fell to the ground, landed on left hip. Denies LOC. HPI The patient is a 57 y.o. female who presents today with Dizziness (Patient states two days of dizzyspells. Today had episode of extreme dizziness with standing when she fell to the ground, landed onleft hip. Denies LOC. ) The history is provided by the patient and medical records. I, Yadira Hernández, am scribing for Sukhwinder Nix PA while he/she is personally performing the service. Yadira Hernández 07/06/2018 15:14 Liset Meadows is a 57 y.o. female with a history of chronic back pain, insomnia, narcolepsy, lumbar and cervical disc degeneration, arthritis, major depression, anxiety,, COPD, and obesity who presents to the ED for 3 days of worsening dizziness, lightheadedness, and weakness. Patient states she is chronically dizzy, but over the past 3 days she has been having episodes of severe dizziness and weakness. This morning she woke up, got out of bed, and immediately fell back to the bed. She statesher legs gave out under her and she felt extremely weak. She did not experience any pain with this.She did not have any specific symptoms prior to collapsing. It took her a few minutes but she was able to get herself back up. Since, she has been able to walk, but not without holding onto the wall or furniture or using her cane. This is not normal for her, but she notes that she does trip and fall every few weeks. She has also been experiencing intermittent chest palpations over the past 4 days. These episodes only last a few seconds before going away. She has not had chest pain. She has chronic dizziness but this is different because the weakness is new. She denies feeling the room is spinning but notes she also feels off balance. She endorses having cough and cold symptoms for the past week. She last measured a fever of 101 five days ago but none since. She notes shortness of breath at baseline but worsening dyspnea with exertion over the past week. She denies an increase in sputum production. She has been using her inhalers as prescribed. Her appetite has been decreased, stating she eats about 1 meal a day. She has been feeling fatigued for the past several weeks. She denies weight loss. She occasionally has difficulty urinating when she feels the need to go. She has seen a urologist about this. She denies nausea, vomiting, abdominal pain, hematuria, leg swelling leg pain, rashes, wounds, or recent weight loss. She has not had any recent changes to her medications. She denies a history of blood clots, mi, stroke, diabetes, or cancer. Patient denies smoking cigarettes, dr inking alcohol, or using recreational drugs. She has not done any recent long- distance travel. No recent surgery or hospitalization. She take no estrogen. She denies any changes to her medications currently. Review of Systems Review of Systems Constitutional: Positive for activity change, appetite change and fatigue. Negative for chills, fever and unexpected weight change. HENT: Positive for congestion. Eyes: Negative for photophobia and pain. Respiratory: Positive for shortness of breath. Negative for cough. Cardiovascular: Positive for palpitations (Occasional). Negative for chest pain and leg swelling. Gastrointestinal: Negative for abdominal pain, nausea and vomiting. Genitourinary: Positive for difficulty urinating. Negative for hematuria. Musculoskeletal: Negative for back pain, gait problem and neck pain. Skin: Negative for wound. Neurological: Positive for dizziness, weakness, light-headedness and headaches. The patient???s past medical, family, and social history was reviewed and updated as needed. Allergies Allergen Reactions ??? Toradol [Ketorolac Tromethamine] Hives ??? Motrin [Ibuprofen] Itching Vital Signs Temp: 36.7 ??C (98.1 ??F) Heart Rate: 92 BPM Resp: 18 SpO2: 97 % BP: 112/66 BP Device: BP Machine Patient Position: Sitting BP Cuff Location: Right arm O2 Device: None (Room air) Physical Exam Nursing note and vitals reviewed. BP 112/66 (BP Cuff Location: Right arm, Patient Position: Sitting) Temp 36.7 ??C (98.1 ??F) Resp 18 Wt 90.7 kg (200 lb) [facility] 01/[birth year]/1987 SpO2 97% BMI 34.33 kg/m2 General appearance: alert, oriented. Appears slightly drowsy. HEENT: conjunctiva pink, sclera white. Head atraumatic. No oral lesions. Uvula midline Neck: supple, no lymphadenopathy, full range of motion. Non tender on palpation Cardiac: RRR, no murmur Pulmonary: clear to ausculation bilaterally Abdomen soft and non tender. Extremities: Lower extremities without edema or tenderness. No erythema. Neuro: Eoms intact, no nystagmus. Pupils equal and reactive bilaterally. Soft palate rises symmetrically. [place] strength symmetric. Facial movements symmetric. Shoulder shrug symmetric. Finger to nose intact. Strength 5/5 in all extremities. She ambulates easily with a cane. Skin: warm, dry, no rash. Well healed wound between the left 4th and 5th toes. Psych: normal affect, behavior appropriate. RESULTS EKG orders: EKG 12-LEAD Radiology orders: CHEST PA AND LATERAL Procedures ED COURSE A medical screening exam was performed. 57 year old female comes in for acute on chronic shortness of breath, weakness and lightheadedness.It appears her dizziness is acute on chronic as well. She overall appears well and has no neuro deficits. She has no shortness of breath at rest. I think stroke, ACS, copd exacerbation or PE are unlikely. She has no fever here but did mention a few days of fever last week so chest x-ray, blood cultures, and urine were ordered. Labs are noteable for a glucose of 148, but otherwise normal includinga normal troponin. EGK is normal sinus with no ST changes. Urine is normal. The patient is able to eat and drink easily while in the emergency department. I discussed the case with Dr. Giron. We both agreed that no further workup is necessary at this time. She will call here PCP tomorrow for close follow up. I explained her dizziness may be due to polypharmacy. I advised she address this with her pcp. I also think she is deconditioned and could benefit from PT. I advised she discuss this with her pcp as well. She is able to stay with her and her son who can ensure her safety. Return precautions were discussed. Prior to discharge usual and customary precautions were reviewed with the patient and/or family including follow-up instructions and reasons to return to the Emergency Department if condition worsens, does not improve as expected, or other new concerns arise. Final diagnoses: Dizziness DISPOSITION: Discharged The patient's pain was managed to an adequate level weighing risk vs. benefit of further medications. Upon departure from the Emergency Department, the patient's pain was 2 on a zero to ten scale. Any further pain treatment will be at the discretion of the provider following up with the patient based on their clinical assessment. Condition at departure from the Emergency Department: Good PCP: Jean Munoz [facility] This documentation is recorded by Yadira Hernández acting as Scribe under the direction and presence of Sukhwinder Nix PA. Sukhwinder Nix PA: I personally performed the services recorded by the scribe in my presence. I confirm the scribe's documentation has been reviewed by me to accurately and completely record my work, treatment, procedures, and medical decision making. Dr. Krzysztof Cali was available for supervision. 07/06/2018 19:35 No flowsheet data found. documented in this encounter Plan of Treatment Upcoming Encounters Date Type Department Care Team (Late st Contact Info) Description 06/29/2024 14:15 EDT Office Visit [facility] [address] [place] [address] Jean Munoz MD [address] [place] [address] documented as of this encounter Procedures Procedure Name Priority Date/Time Associated Diagnosis Comments ECG REPORT - SCANNED 07/27/2018 14:47 EST POCT URINE DIPSTICK, CLINITEK STAT 07/06/2018 20:41 EDT BACTERIAL CULTURE, BLOOD Routine 07/06/2018 19:05 EDT BACTERIAL CULTURE, BLOOD Routine 07/06/2018 17:45 EDT TROPONIN I STAT 07/06/2018 17:45 EDT BACTERIAL CULTURE, BLOOD Routine 07/06/2018 16:45 EDT GLUCOSE, GLUCOMETER Routine 07/06/2018 1 6:12 EDT CHEST PA AND LATERAL STAT 07/06/2018 16:09 EDT REDRAW LABS Routine 07/06/2018 16:03 EDT COMPLETE BLOOD COUNT AND DIFFERENTIAL STAT 07/06/2018 16:03 EDT BASIC METABOLIC PANEL (BMP) STAT 07/06/2018 16:03 EDT EKG 12-LEAD STAT 07/06/2018 15:19 EDT documented in this encounter Results * ECG REPORT - SCANNED (07/27/2018 14:47 EST) 07/27/2018 14:4 7 EST Scan 2 Substation Wireman PROCEDURE/MINOR GURU GICAL ORDERABLES * POCT URINE DIPSTICK, CLINITEK (07/06/2018 20:41 EDT) Color YELLOW Yellow 07/06/2018 20:36 EDT [facility] Clarity, UA Clear Clear 07/06/2018 20:36 T [facility] Glucose Neg Neg 07/06/2018 20:36 T [facility] Bilirubin Neg Neg 07/06/2018 20:36 T [facility] Ketones Neg Neg 07/06/2018 20:36 [facility] Specific [place] >=1.030 1.001 - 1.035 07/06/2018 20:36 T [facility] Blood Neg Neg 07/06/2018 20:36 [facility] pH 6.0 4.6 - 8.0 07/06/2018 20:36 [facility] Protein Neg Neg 07/06/2018 20:36 [facility] Urobilinogen 0.2 0.2 - 1.0 mg/dL 07/06/2018 20:36 [facility] Nitrite Neg Neg 07/06/2018 20:36 T [facility] Leuk Esterase Neg Neg 07/06/2018 20:36 [facility] line clearance foreman ID [id number] 07/06/2018 20:36 [facility] Comment:Test performed at Em ergency Department Urine specimen (specimen) URINE / Unknown 07/06/2018 20:41 EDT 07/06/2018 20:36 EDT Sukhwinder Nix PA-C POINT OF CARE TEST ORDERABLES [facility] [address] [place] [address] * (ABNORMAL) BACTERIAL CULTURE, BLOOD (07/06/2018 19:05 EDT) Result STAPHYLOCOCCUS, COAGULASE NEGATIVE Isolated in one bottle. First detected at: 19 hours. (A) 07/08/2018 15:34 EDT [facility] Result 07/08/2018 15:34 EDT [facility] Result Results called to client and client read back results. to Gina Lawrence at 1547 07/08/2018 15:34 EDT [facility] Result (Note) Specimen tested for 12 gram positive organism identification targets and 3 antibiotic resistance determinant targets, by micro array technology. 07/08/2018 15:34 EDT [facility] Blood specimen (specimen) BLOOD SPECIMEN / Unknown 07/06/2018 19:05 EDT 07/06/2018 19:26 EDT Comment:Right~Antecubital~To rohit volume of blood collected:~20 ml Sukhwinder Nix PA-C MICROBIOLOGY - GENERAL ORDERABLES Performing Organization Address City/[facility]/ZIP Co de Phone Number [facility] [address] [place] [address] * TROPONIN I (07/06/2018 17:45 EDT) Pathologist [facility] Troponin I (ng/mL) <0.034 <0.034 ng/ml 07/06/2018 18:59 EDT [facility] Comment: The results of this assay can be falsely lowered due to the consumption of Biotin. Blood specimen (specimen) BLOOD SPECIMEN / Unknown 07/06/2018 17:45 EDT 07/06/2018 18:28 EDT Sukhwinder Nix PA-C CHEMISTRY & BL OOD GAS ORDERABLES Performing Organization Address City/[facility]/ZIP Co de Phone Number [facility] [address] [place] [address] * BACTERIAL CULTURE, BLOOD (07/06/2018 17:45 EDT) Pathologist [facility] Result No growth 07/11/2018 7:12 EDT [facility] Blood specimen (specimen) BLOOD SPECIMEN / Unknown 07/06/2018 17:45 EDT 07/06/2018 19:19 EDT Comment:Right~Hand Sukhwinder Nix PA-C MICROBIOLOGY - GENERAL ORDERABLES Performing Organization Address [facility]/[place] Co de Phone Number [facility] [address] [place] [address] * BACTERIAL CULTURE, BLOOD (07/06/2018 16:45 EDT) Result Specimen ID unacceptable Specimen unlabeled 07/06/2018 17:39 EDT [facility] Blood specimen (specimen) BLOOD SPECIMEN / Unknown 07/06/2018 16:45 EDT 07/06/2018 17:38 EDT Comment:Right~Antecubital Sukhwinder Nix PA-C MICROBIOLOGY - GENERAL ORDERABLES Performing Organization Address [facility]/[place] Co de Phone Number [facility] [address] [place] [address] * (ABNORMAL) GLUCOSE, GLUCOMETER (07/06/2018 16:12 EDT) Glucose, Fingerstick 164(H) 70 - 100 mg/dl 07/06/2018 16:13 EDT [facility] Asp Net Mvc Developer ID [id number] 07/06/2018 16:13 EDT [facility] Comment:Test Performed by [facility] BLOOD SPECIMEN / Unknown 07/06/2018 16:12 EDT 07/06/2018 16:13 EDT Provider Unknown CHEMISTRY & BLOOD GA S ORDERABLES Performing Organization Address [facility]/[place] Co de Phone Number [facility] [address] [place] [address] * CHEST PA AND LATERAL (07/06/2018 16:09 EDT) Anatomical Region Laterality Modality Other 07/06/2018 16:0 9 EDT 07/06/2018 16:25 EDT Narrative 07/06/2018 16:25 EDT CHEST 2 VIEWS ??07/06/2018 4:09 PM Clinical History/Comments: increased shortness of breath, hx copd COMPARISON: CT 01/13/2017. TECHNIQUE: Frontal and lateral views of the chest were performed. FINDINGS: Soft tissues and extrathoracic findings: ??Surgical clips in the gastroesophageal junction. Bones: Lower cervical fixation plate. Cardiac and mediastinal contours: Normal. Lungs: Thickened bronchovascular markings. Otherwise, the lungs are clear with no evidence of pneumonia. ?? Pleura/diaphragms: Normal. IMPRESSION: 1. ??No evidence of pneumonia. 2. ??Thickened bronchovascular markings known to reflect smoking-related abnormalities (emphysema and chronic bronchitis). Procedure Note El Najera MD - 07/06/2018 CHEST 2 VIEWS 07/06/2018 4:09 PM Clinical History/Comments: increased shortness of breath, hx copd COMPARISON: CT 01/13/2017. TECHNIQUE: Frontal and lateral views of the chest were performed. FINDINGS: Soft tissues and extrathoracic findings: Surgical clips in the gastroesophageal junction. Bones: Lower cervical fixation plate. Cardiac and mediastinal contours: Normal. Lungs: Thickened bronchovascular markings. Otherwise, the lungs are clear with no evidence of pneumonia. Pleura/diaphragms: Normal. IMPRESSION: 1. No evidence of pneumonia. 2. Thickened bronchovascular markings known to reflect smoking-related abnormalities (emphysema and chronic bronchitis). Sukhwinder Nix PA-C IM DIAGNOSTIC IMAGING ORDERABLES * REDRAW LABS (07/06/2018 16:03 EDT) Redraw TROPONIN GREEN TOP MARKEDLY HEMOLYZED 07/06/2018 17:37 EDT [facility] TOPOGRAPHY UNKNOWN / Unknown 07/06/2018 16:03 EDT 07/06/2018 16:50 EDT Sukhwinder Nix PA-C LAB INFO SERVI CE AND SUPPORT & PHONE RESULT [facility] [address] [place] [address] * COMPLETE BLOOD COUNT AND DIFFERENTIAL (07/06/2018 16:03 EDT) WBC 9.51 4.0 - 12.4 K/cmm 07/06/2018 17:25 [facility] RBC 4.37 3.86 - 5.04 M/cmm 07/06/2018 17:25 [facility] LABORATORY SERVICES Hemoglobin 13.6 11.6 - 15.2 gm/dl 07/06/2018 17:25 [facility] HCT 39.8 34.9 - 44.4 % 07/06/2018 17:25 [facility] MCV 91 81 - 98 fl 07/06/2018 17:25 [facility] MCH 31.1 26.7 - 33.3 pg 07/06/2018 17:25 [facility] MCHC 34.2 32.1 - 35.9 gm/dl 07/06/2018 17:25 [facility] RDW-CV 14.2 <14.7 % 07/06/2018 17:25 [facility] RDW-SD 47.7 <50.4 fl 07/06/2018 17:25 [facility] PLT 280 141 - 377 K/cmm 07/06/2018 17:25 [facility] MPV 10.0 9.5 - 12.7 fl 07/06/2018 17:25 [facility] % Neutrophils 62.4 % 07/06/2018 17:25 [facility] % Lymphocytes 27.9 % 07/06/2018 17:25 [facility] % Monocytes 6.6 % 07/06/2018 17:25 [facility] % Eosinophils 2.2 % 07/06/2018 17:25 [facility] % Basophils 0.6 % 07/06/2018 17:25 [facility] % Immature Grans 0.3 % 07/06/2018 17:25 [facility] ABS Neutrophils 5.93 2.20 - 8.85 K/cmm 07/06/2018 17:25 [facility] ABS Lymphs 2.65 1.09 - 3.30 K/cmm 07/06/2018 17:25 [facility] ABS Monocytes 0.63 0.1 - 0.8 K/cmm 07/06/2018 17:25 [facility] ABS Eosinophils 0.21 0.03 - 0.61 K/cmm 07/06/2018 17:25 [facility] ABS Basophils 0.06 0.01 - 0.11 K/cmm 07/06/2018 17:25 [facility] ABS Immature Grans 0.03 0 - 0.06 K/cmm 07/06/2018 17:25 [facility] Type of Diff: Automated 07/06/2018 17:25 [facility] Blood specimen (specimen) BLOOD SPECIMEN / Unknown 07/06/2018 16:03 EDT 07/06/2018 16:50 EDT Sukhwinder Nix PA-C PACKAGES & DNA PROBE ORDERABLES [facility] [address] [place] [address] * (ABNORMAL) BASIC METABOLIC PANEL (BMP) (07/06/2018 16:03 EDT) Sodium 143 136 - 145 mEq/L 07/06/2018 17:15 [facility] Potassium 3.6 3.5 - 5.0 mEq/L 07/06/2018 17:15 [facility] Chloride 109 96 - 110 mEq/L 07/06/2018 17:15 [facility] CO2 26 22 - 32 mEq/L 07/06/2018 17:15 [facility] BUN 10 10 - 26 mg/dl 07/06/2018 17:15 [facility] Creatinine 0.53 0.52 - 1.04 mg/dl 07/06/2018 17:15 [facility] GFR, Calculated 104 >60 ml/min/1.7 3m2 07/06/2018 17:15 [facility] Comment: eGFR calculated using CKD-EPI equation for non Americans. Multiply eGFR by 1.16 for Americans. Calcium 8.7 8.5 - 10.5 mg/dl 07/06/2018 17:15 EDT [facility] Calculated Calcium 8.7 8.5 - 10.5 mg/dl 07/06/2018 17:15 EDT [facility] Glucose, Serum 148(H) 70 - 100 mg/dl 07/06/2018 17:15 EDT [facility] Fasting? Unknown 07/06/2018 16:50 EDT [facility] Blood specimen (specimen) BLOOD SPECIMEN / Unknown 07/06/2018 16:03 EDT 07/06/2018 16:50 EDT Sukhwinder Nix PA-C CHEMISTRY & BL OOD GAS ORDERABLES Performing Organization Address City/State/RUST Co de Phone Number [facility] [address] [place] [address] * EKG 12-LEAD (07/06/2018 15:19 EDT) 07/06/2018 15:1 9 EDT Narrative [facility] EKG - 07/27/2018 14:41 EST ?[facility] Emergency ? Test Date: ?2018-07-06 Pat Name: ? LISET MEADOWS ?Department: ?? ED ? Room: ? Gender: ? Female ? Vocational Trainer: ?? [id number] : ?1960 ? Requested By: KAYE Patton Number: [id number] ? Reading : ?? TONI CHANDLER MD ? Measurements Intervals ?[place] ? Rate: ? 73 ? P: ?69 MN: ? 161 ?QRS: ?34 QRSD: ? 95 ? T: ?36 QT: ? 409 ? QTc: ?452 ? Interpretive Statements SINUS RHYTHM POSSIBLE LEFT ATRIAL ENLARGEMENT Compared to ECG 12/26/2016 22:25:14 Sinus tachycardia no longer present T-wave abnormality no longer present I reviewed the tracing and have either agreed or edited the findings in this report. Electronically Signed On 07-27-2018 14:41:25 EST by TONI CHANDLER MD. Procedure Note Toni Chandler Jr., MD - 07/27/[address] [facility] Emergency Test Date: 2018-07-06 Pat Name: LISET MEADOWS Department: ED Room: Gender: Female Vocational Trainer: [id number] : 1960 Requested By: KAYE WRIGHT Order Number: [id number] Reading MD: TONI CHANDLER MD Measurements Intervals [place] Rate: 73 P: 69 MN: 161 QRS: 34 QRSD: 95 T: 36 QT: 409 QTc: 452 Interpretive Statements SINUS RHYTHM POSSIBLE LEFT ATRIAL ENLARGEMENT Compared to ECG 12/26/2016 22:25:14 Sinus tachycardia no longer present T-wave abnormality no longer present I reviewed the tracing and have either agreed or edited the findings inthis report. Electronically Signed On 07-27-2018 14:41:25 EST by TONI TELLEZ. Sukhwinder Nix PA-C CARDIAC ECG OR DERABLES [facility] EKG documented in this encounter Visit Diagnoses Diagnosis Dizziness- Primary Dizziness and giddiness Screening for osteoporosis- Primary Special screening for [...] MAR Action Action Date Dose Rate Site HYDROcodone-acetaminophen (NORCO) 5-325 mg tablet 1 Tab 1 Tablet, oral, NOW X1, 1 dose, On Wed07/06/18 at 1930, STAT Given 07/06/2018 20:27 EDT 1 Tablet sodium chloride 0.9 % BOLUS 500 mL 500 mL, intravenous, NOW X1, 1 dose, On Wed07/06/18 at 1745, STAT New Bag 07/06/2018 18:45 EDT 500 mL documented in this encounter Active and Recently Administered Medications Times are shown in EDT. Scheduled Medication Order 07/04/2018 07/05/2018 07/06/2018 HYDROcodone-acetaminophen (NORCO) 5-325 mg tablet 1 Tab (COMPLETED) 1 Tablet, oral, NOW X1, 1 dose, On Wed07/06/18 at 1930, STAT 2026 (Given - Provid er: Kathleen Hernandez, RN) sodium chloride 0.9 % BOLUS 500 mL (COMPLETED) 500 mL, intravenous, NOW X1, 1 dose, On 07/06/18 at 1745, STAT 1845 (New Bag - Prov ider: Kathleen Hernandez, CHRIS)1955 (Completed - Provider: Kathleen Hernandez RN) documented in this encounter Orders Lab Orders Without Results Count Last Ordered D ate First Ordered Date POCT GLUCOSE 1 07/06/2018 Nursing Count Last Ordered Date First Orde red Date INSERT PERIPHERAL IV 1 07/06/2018 documented in this encounter Care Teams Land Conservation Specialist Relationship Specialty Start Date End Date Jean Munoz MD [address] [place] [address] PCP - General 12/31/08 Manny Rizzo MD [address] [place] [address] 04/20/10 documented as of this encounter
--- OUTSIDE RECORDS SUMMARY | 2024-06-10 07:17 | XMS_ITS | Encounter Summary ---
Author Organization [facility] Address [address] [place] [address] Care Team Providers Care Lead Manufacturing Engineer Name Role Phone Jean Munoz MD Primary Care Provider Manny Rizzo MD Unavailable Reason for Visit * Reason Onset Date Comments Dizziness 07/06/2018 ? Encounter Details Date Type Department Care Team (Late st Contact Info) Description 07/06/2018 Telephone [facility] [address] [place] [address] Jean Munoz MD [address] [place] [phone] Dizziness (?) Social History Tobacco Use Types Packs/Day Years [...] Telephone Encounter - Yadira Mccauley RN - 07/06/2018 1151 EDT Outgoing call to pt. Symptoms started a couple of days ago. Notified her that she needs evaluation and that someone should drive her to the ED/ now for evaluation. Pt agreed with plan and verbalized understanding with no barriers to learning. * Telephone Encounter - Sapna Dominguez - 07/06/2018 1147 EDT Reason for Call: Dizziness (?) Summary/Symptoms: Pt states she is having a hard time standing, keeps falling down, no equalibrium.Please call. Onset and Duration? Appointment Offered? None Sapna Dominguez 07/06/2018 11:48 documented in this encounter Plan of Treatment Upcoming Encounters Date Type Department Care Team (Late st Contact Info) Description 06/29/2024 14:15 EDT Office Visit [facility] [address] [place], [place] [phone] Jean Munoz MD [address] [place] [address] documented as of this encounter Visit Diagnoses Not on filedocumented in this encounter Care Teams Lead Manufacturing Engineer Relationship Specialty Start Date End Date Jean Munoz MD [address] [place] [address] PCP - General 12/31/08 Manny Rizzo MD [address] [place] [phone] 04/20/10 documented as of this encounter
--- OUTSIDE RECORDS SUMMARY | 2024-06-10 07:17 | XMS_ITS | Encounter Summary ---
Author Organization [facility] Address [address] [place] [address] Care Team Providers Care Architectural Intern Name Role Phone Jean Munoz MD Primary Care Provider Manny Rizzo MD Unavailable Afia Valle MD Unavailable Jesi Leong BENCH MANAGER Unavailable SaloJesi shanks BENCH MANAGER Unavailable Reason for Visit * Reason Onset Date Comments Medications Refill 12/13/2018 Encounter Details Date Type Department Care Team (Late st Contact Info) Description 12/13/2018 Refill [facility] Sleep Program - [address] [address] Tiana Bacon [address] [place] [address] Medications Refill Social History Tobacco [...] by mouth in the morning. 60 tablet 12/13/2018 01/10/2019 methylphenidate HCl (RITALIN;METHYLIN) 10 mg tablet Take one tab in the afternoon for narcolepsy. 30 tablet 12/13/2018 01/10/2019 documented in this encounter Miscellaneous Notes * Telephone Encounter - Corrina Ac RN - 12/13/2018 1439 EDT Pt last seen on 09/14/18 by . Refills for methylphenidate pended to the doctor. * Telephone Encounter - Nicki Dunbar - 12/13/2018 1326 EDT Prescription Refill Request: Ritalin 20 mg Ritalin 10 mg *has enough left for another day *pharmacy is [facility] documented in this encounter Plan of Treatment Upcoming Encounters Date Type Department Care Team (Late st Contact Info) Description 06/29/2024 14:15 EDT Office Visit [address] [address] Jean Munoz MD [address] [place] [address] documented as of this encounter Visit Diagnoses Not on filedocumented in this encounter Discontinued Medications Medication Sig Discontinue Reason Start Date End Da te methylphenidate HCl (RITALIN;METHYLIN) 10 mg tablet Take one tab in the afternoon for narcolepsy. Reorder 11/15/2018 12/13/2018 methylphenidate HCl (RITALIN;METHYLIN) 20 mg tablet Take 2 tabs by mouth in the morning. Reorder 11/15/2018 12/13/2018 documented as of this encounter Additional Health Concerns Infection Onset Date Last Indicated Resolved Time R/O COVID-19 05/15/2022 05/15/2022 05/20/2022 22:1 6 EDT R/O COVID-19 11/14/2022 11/14/2022 11/14/2022 19:1 6 EST documented as of this encounter Care Teams Architectural Intern Relationship Specialty Start Date End Date Jean Munoz MD [address] [place] [phone] PCP - General 12/31/08 Manny Rizzo MD [facility] [place] [phone] 04/20/10 Afia Valle MD [address] [facility] [address] [place] [phone] Care Team Radiation Oncology 07/02/21 Jesi Leong [facility] [address] [place] [address] Wet Pan Mixer 12/24/21 09/20/22 Jesi Leong, [facility] [address] [place] [address] Behavioral Health Wet Pan MixerWell Logging Mud Analysis Captain Care 10/19/22 01/23/24 documented as of this encounter
--- OUTSIDE RECORDS SUMMARY | 2024-06-10 07:17 | XMS_ITS | Encounter Summary ---
Author Organization [facility] Address [address] [place] [address] Care Team Providers Care Cork Insulator Name Role Phone Jean Munoz MD Primary Care Provider Manny Rizzo MD Unavailable Reason for Visit * Reason Onset Date Comments Medications Refill 09/20/2018 Encounter Details Date Type Department Care Team (Late st Contact Info) Description 09/20/2018 Refill [facility] Sleep Program - [address] [phone] Tiana Bacon [address] [place] [phone] Medications Refill Social History Tobacco Use [...] by mouth in the morning. 60 Tab 09/20/2018 10/18/2018 methylphenidate HCl (RITALIN;METHYLIN) 10 mg tablet Take one tab in the afternoon for narcolepsy. 30 Tab 09/20/2018 10/18/2018 documented in this encounter Miscellaneous Notes * Telephone Encounter - Bharat Fajardo - 09/20/2018 1430 EST Patient returned Corrina's call, advised that scripts had been confirmed received by pharmacy as of1:36PM. * Telephone Encounter - Corrina Ac RN - 09/20/2018 1405 EST Refills for methylphenidate e-prescribed to pharmacy by . Called patient's home, no answer. Called cell, outgoing message said 'unavailable' no opportunity to leave message. * Telephone Encounter - Corrina Ac RN - 09/20/2018 1233 EST Pt last seen on 09/14/18. Methylphenidate orders pended to for review and e-prescribing. * Telephone Encounter - Bharat Fajardo - 09/20/2018 1225 EST Liset called to request a refill of her prescriptions for: methylphenidate HCl (RITALIN;METHYLIN) 10 mg tablet and methylphenidate HCl (RITALIN;METHYLIN) 20 mg tablet Patient advised that they will be out tomorrow, and were hoping to avoid the weather. I advised we request 3 business days for refills but that I would route on high priority to Dr. Bacon's nurse. Patient is requesting refills be sent to primary pharmacy ([facility]) documented in this encounter Plan of Treatment Upcoming Encounters Date Type Department Care Team (Late st Contact Info) Description 06/29/2024 14:15 EDT Office Visit [facility] [address] [place], [place] [phone] Jean Munoz MD [address] [place] [phone] documented as of this encounter Visit Diagnoses Not on filedocumented in this encounter Discontinued Medications Medication Sig Discontinue Reason Start Date End Da te methylphenidate HCl (RITALIN;METHYLIN) 10 mg tablet Take one tab in the afternoon for narcolepsy. Reorder 08/23/2018 09/20/2018 methylphenidate HCl (RITALIN;METHYLIN) 20 mg tablet Take 2 tabs by mouth in the morning. Reorder 08/23/2018 09/20/2018 documented as of this encounter Care Teams Cork Insulator Relationship Specialty Start Date End Date Jean Munoz MD [address] [place] [phone] PCP - General 12/31/08 Manny Rizzo MD [address] [place] [address] 04/20/10 documented as of this encounter
--- OUTSIDE RECORDS SUMMARY | 2024-06-10 07:17 | XMS_ITS | Encounter Summary ---
Author Organization [facility] Address [address] [place] [address] Care Team Providers Care Liquor Runner Name Role Phone Jean Munoz MD Primary Care Provider Manny Rizzo MD Unavailable Reason for Visit * Reason Comments Titration Polysomnogram * Sleep Study (Routine) - Specialty Report Received Specialty Diagnoses / Procedures Referred By Alex weldon Referred To Contact Diagnoses KATJA (obstructive sleep apnea) Procedures PAP TITRATION POLYSOMNOGRAM (CPAP/BIPAP TITRATION POLYSOMNOGRAM) [place] [address] [place] [address] Referral ID Status Reason Start Date Expiration Date V isits Requested Visits Authorized [id number] Specialty Report Received 09/14/2018 1 1 Encounter Details Date Type Department Care Team (Late st Contact Info) Description 10/11/2018 21:30 EST Office Visit [facility] - [facility] [address] [place] [address] Unknown, Provider, [place] [address] KATJA (obstructive sleep apnea) (Primary Dx) Discharge Disposition: Auto Discharge Social History Tobacco [...] - Inhaled Oxygen Concentration - - Weight 90.7 kg (200 lb) 10/11/20182149 EST Height 162.6 cm (5' 4) 10/11/20182149 EST Body Mass Index 34.33 10/11/20182149 EST documented in this encounter Functional Status [...] as of this encounter Discharge Diagnoses Diagnosis G47.33 Obstructive sleep apnea (adult) (pediatric)-G47.33[ICD-10-CM] documented in this encounter Discharge Disposition Disposition Code Departure Means Destination Auto Discharge documented in this encounter Progress Notes * Tiana Bacon MD - 10/11/20182129 EST [facility] SLEEP PROGRAM [address] [place] [address] / fax [phone] Name: Liset Maged Maximiliano : 1960 Study Type: PAP Titration Polysomnogram 10/11/2018 In Summary: * Titration with BPAP; patient reported poor tolerance to pressures with CPAP. * The patient slept a total of 373 minutes on PAP. Resolution of obstructive sleep apnea (KATJA) on BIPAP 10/6, 11/7, and 12/8 cm H2O with regular respirations and oxygen saturation averaging 92-94%. REM sleep in the right and left lateral position was seen at 11/7 cm H2O. Limited supine sleep was observed. The patient used the Dreamwear (Nasal) Small Cushion/ Small Frame. * No Periodic Limb Movements (PLMs). Plan: * A prescription for AutoBiPAP (min EPAP 6, max IPAP 15, PS 4) and mask interface was faxed in to [facility]. * The patient will be contacted to schedule follow up with Dr. Tiana Bacon, to review complaince on PAP therapy. Tiana Bacon MD 10/15/2018 15:27 documented in this encounter Plan of Treatment Upcoming Encounters Date Type Department Care Team (Late st Contact Info) Description 06/29/2024 14:15 EDT Office Visit [facility] [address] [place] [address] Jean Munoz MD [address] [place] [address] documented as of this encounter Procedures Procedure Name Priority Date/Time Associated Diagnosis Comments SLEEP STUDY REPORT - SCANNED 10/15/2018 15:43 EST documented in this encounter Results * SLEEP STUDY REPORT - SCANNED (10/15/2018 15:43 EST) 10/15/2018 15:4 3 EST Scan 2 Cooler Conveyor Loader PROCEDURE/MINOR GURU GICAL ORDERABLES documented in this encounter Visit Diagnoses [...] Ordered Date First Orde red Date CPAP/BIPAP MACHINE ORDER 1 10/15/2018 documented in this encounter Care Teams Liquor Runner Relationship Specialty Start Date End Date Jean Munoz MD [address] [place] [phone] PCP - General 12/31/08 Manny Rizzo MD [address] [place] [phone] 04/20/10 documented as of this encounter
--- OUTSIDE RECORDS SUMMARY | 2024-06-10 07:17 | XMS_ITS | Encounter Summary ---
Author Organization [facility] Address [address] [place] [address] Care Team Providers Care Garage Construction Equipment Mechanic Name Role Phone Jean Munoz MD Primary Care Provider Manny Rizzo MD Unavailable Reason for Visit * Reason Onset Date Comments Medications Refill 07/26/2018 Encounter Details Date Type Department Care Team (Late st Contact Info) Description 07/26/2018 Refill [facility] Sleep Program - [address] [phone] Tiana Bacon [address] [place] [phone] Medications Refill Social History Tobacco Use [...] by mouth in the morning. 60 Tab 07/26/2018 08/23/2018 methylphenidate HCl (RITALIN;METHYLIN) 10 mg tablet Take one tab in the afternoon for narcolepsy. 30 Tab 07/26/2018 08/23/2018 documented in this encounter Miscellaneous Notes * Telephone Encounter - Corrina Ac RN - 07/26/2018 0901 EST Pt has FUR appt on 11/09/18 with . Refill requests for ritalin. Pended orders for ritalin to Dr. Bacon for review and e-sig. * Telephone Encounter - Barbara Gimenez - 07/26/2018 0821 EST Medication Refill Medication(s) Requested: Ritalin 20mg / Ritalin 10mg Pharmacy (reconcile pharmacy list): Is patient out of medication? No Picking up/mailing (location)/calling in/eprescribe? Eprescribe 30 day supply/90 day supply? 30 Barbara Gimenez 07/26/20188:22 documented in this encounter Plan of Treatment Upcoming Encounters Date Type Department Care Team (Late st Contact Info) Description 06/29/2024 14:15 EDT Office Visit [address] [place] [address] Jean Munoz MD [address] [place] [address] documented as of this encounter Visit Diagnoses Not on filedocumented in this encounter Discontinued Medications Medication Sig Discontinue Reason Start Date End Da te methylphenidate HCl (RITALIN;METHYLIN) 10 mg tablet Take one tab in the afternoon for narcolepsy. Reorder 06/29/2018 07/26/2018 methylphenidate HCl (RITALIN;METHYLIN) 20 mg tablet Take 2 tabs by mouth in the morning. Reorder 06/29/2018 07/26/2018 documented as of this encounter Care Teams Garage Construction Equipment Mechanic Relationship Specialty Start Date End Date Jean Munoz MD [address] [place] [phone] PCP - General 12/31/08 Manny Rizzo MD [address] [place] [address] 04/20/10 documented as of this encounter
--- OUTSIDE RECORDS SUMMARY | 2024-06-10 07:17 | XMS_ITS | Encounter Summary ---
Author Organization [facility] Address [address] [place] [address] Care Team Providers Care Maori Liaison Adviser Name Role Phone Jean Munoz MD Primary Care Provider Manny Rizzo MD Unavailable Afia Valle MD Unavailable [phone] Jesi Leong MARKETING EFFECTIVENESS MANAGER Unavailable SaloJesi shanks MARKETING EFFECTIVENESS MANAGER Unavailable [phone] Reason for Visit * Reason Comments Other Encounter Details Date Type Department Care Team (Late st Contact Info) Description 10/13/2018 Refill [facility] [address] [place], [place] [phone] Jean Munoz MD [address] [place] [address] Other Social History Tobacco Use [...] migraine. daily limit 2 tabs 9 Tab 2 10/14/2018 01/06/2019 documented in this encounter Miscellaneous Notes * Telephone Encounter - Jean Munoz MD - 10/14/2018 1152 EST escript done, please notify patient, thanks * Telephone Encounter - Lizz Negro RN - 10/13/2018 1224 EST Medication(s) Requested: Imitrex 50 mg Preferred Pharmacy: [facility] Is patient out of medication? Unknown Last Refill Date: 06/28/18 Last Visit Date with Ordering Provider: 08/18/18 Next Non-Acute Visit Date Scheduled with Care Team: Yes. 11/10/18 LIZZ NEGRO RN 10/13/2018 12:25 documented in this encounter Plan of Treatment Upcoming Encounters Date Type Department Care Team (Late st Contact Info) Description 06/29/2024 14:15 EDT Office Visit [facility] [address] [place] [address] Jean Munoz MD [address] [place] [address] documented as of this encounter [...] needed for migraine. Daily max 2 tablets. Reorder 06/28/2018 10/13/2018 documented as of this encounter Additional Health Concerns Infection Onset Date Last Indicated Resolved Time R/O COVID-19 05/15/2022 05/15/2022 05/20/2022 22:1 6 EDT R/O COVID-19 11/14/2022 11/14/2022 11/14/2022 19:1 6 EST documented as of this encounter Care Teams Maori Liaison Adviser Relationship Specialty Start Date End Date Jean Muonz MD [address] [place] [address] PCP - General 12/31/08 Manny Rizzo MD [address] [place] [phone] 04/20/10 Afia Valle MD [address] [place] [address] [address] [place] [phone] MD Care Team Radiation Oncology 07/02/21 Jesi Leong [facility] [address] [place] [address] Portal Architect 12/24/21 09/20/22 Jesi Leong [facility] [address] [place] [address] Behavioral Health Portal ArchitectFashion Design Professor Care 10/19/22 01/23/24 documented as of this encounter
--- OUTSIDE RECORDS SUMMARY | 2024-06-10 07:17 | XMS_ITS | Encounter Summary ---
Author Organization [facility] Address [address] [place] [address] Care Team Providers Care Tax Services Specialist Name Role Phone Jean Munoz MD Primary Care Provider Manny Rizzo MD Unavailable Reason for Visit * Reason Onset Date Comments Appointment Related 10/07/2018 Encounter Details Date Type Department Care Team (Late st Contact Info) Description 10/07/[address] [facility] Sleep Program - [address] [address] Tiana Bacon [address] [place] [address] Appointment Related Social History Tobacco [...] * Telephone Encounter - Cory Carter - 10/07/2018 1529 EST PT CONFIRMED SLEEP STUDY FOR 10/11/18 9:30PM RES INN. documented in this encounter Plan of Treatment Upcoming Encounters Date Type Department Care Team (Late st Contact Info) Description 06/29/2024 14:15 EDT Office Visit [facility] [address] [place], [place] [phone] Jean Munoz MD [address] [place] [address] documented as of this encounter Visit Diagnoses Not on filedocumented in this encounter Care Teams Tax Services Specialist Relationship Specialty Start Date End Date Jean Munoz MD [address] [place] [address] PCP - General 12/31/08 Manny Rizzo MD [address] [place] [phone] 04/20/10 documented as of this encounter
--- OUTSIDE RECORDS SUMMARY | 2024-06-10 07:17 | XMS_ITS | Encounter Summary ---
Author Organization [facility] Address [address] [place] [address] Care Team Providers Care Rubber Tile Floor Layer Name Role Phone Jean Munoz MD Primary Care Provider Manny Rizzo MD Unavailable Reason for Visit * Reason Onset Date Comments Prior Auth, Medication 10/03/2018 Dalires Encounter Details Date Type Department Care Team (Late st Contact Info) Description 10/03/2018 Telephone [facility] [address] [place] [address] Teetee Marshall LPN Prior Auth, Medication (Dalires) Social History Tobacco [...] Telephone Encounter - Kaitlyn Montero LPN - 10/04/2018 0849 EST Medication:Daliresp 500mcg Insurance Co: [place] medicaid Approval # (if applicable): [id number] Approval dates: 10/03/2018-10/03/2019 [facility] * Telephone Encounter - Teetee Marshall LPN - 10/03/2018 1341 EST Prior authorization initiated via CoverMyMeds for Daliresp. Awaiting response. documented in this encounter Plan of Treatment Upcoming Encounters Date Type Department Care Team (Late st Contact Info) Description 06/29/2024 14:15 EDT Office Visit [facility] [address] [place] [address] Jean Munoz MD [address] [place] [address] documented as of this encounter Visit Diagnoses Not on filedocumented in this encounter Care Teams Rubber Tile Floor Layer Relationship Specialty Start Date End Date Jean Munoz MD [address] [place] [address] PCP - General 12/31/08 Manny Rizzo MD [address] [place] [address] 04/20/10 documented as of this encounter
--- OUTSIDE RECORDS SUMMARY | 2024-06-10 07:17 | XMS_ITS | Encounter Summary ---
Author Organization [facility] Address [address] [place] [address] Care Team Providers Care Dairy Farm Supervisor Name Role Phone Jean Munoz MD Primary Care Provider Manny Rizzo MD Unavailable Reason for Visit * Reason Comments Other Encounter Details Date Type Department Care Team (Late st Contact Info) Description 07/22/2018 [facility] [address] [place] [address] Jean Munoz MD [address] [place] [address] Other Social History Tobacco Use Types [...] End Da te promethazine (PHENERGAN) 25 mg tablet TAKE ONE TABLET BY MOUTH EVERY SIX HOURS as needed for nausea 25 Tab 07/22/2018 09/19/2018 documented in this encounter Miscellaneous Notes * Telephone Encounter - Esme Laboy RN - 07/22/2018 0704 EST Medication(s) Requested: Phenergan 25mg Preferred Pharmacy: [facility] Is patient out of medication? Unknown Last Refill Date: 05.26.1812/10 Last Visit Date with Ordering Provider: 05.26.18 Next Non-Acute Visit Date Scheduled with Care Team: Yes.12.6.18 ESME LABOY RN 07/22/2018 14:16 documented in this encounter Plan of Treatment Upcoming Encounters Date Type Department Care Team (Late st Contact Info) Description 06/29/2024 14:[address] [facility] Medicine [facility] [address] [place], [place] [phone] Jean Munoz MD [address] [place] [address] documented as of this encounter Visit Diagnoses Not on filedocumented in this encounter Discontinued Medications Medication Sig Discontinue Reason Start Date End Da te promethazine (PHENERGAN) 25 mg tablet Take 1 Tab by mouth every 6 hours as needed for Nausea. Reorder 05/26/2018 07/22/2018 documented as of this encounter Care Teams Dairy Farm Supervisor Relationship Specialty Start Date End Date Jean Munoz MD [address] [place] [address] PCP - General 12/31/08 Manny Rizzo MD [address] [place] [phone] 04/20/10 documented as of this encounter
--- OUTSIDE RECORDS SUMMARY | 2024-06-10 07:17 | XMS_ITS | Encounter Summary ---
Author Organization [facility] Address [address] [place] [address] Care Team Providers Care Oliving Machine Operator Name Role Phone Jean Munoz MD Primary Care Provider Manny Rizzo MD Unavailable Afia Valle MD Unavailable Jesi Leong RURAL SOCIOLOGIST Unavailable SaloJesi shanks RURAL SOCIOLOGIST Unavailable Reason for Visit * Reason Onset Date Comments Medications Refill 10/18/2018 Encounter Details Date Type Department Care Team (Late st Contact Info) Description 10/18/2018 Refill [facility] Sleep Program - [address] [address] Tiana Bacon [address] [place] [address] Medications Refill Social History Tobacco [...] by mouth in the morning. 60 Tab 10/18/2018 11/15/2018 methylphenidate HCl (RITALIN;METHYLIN) 10 mg tablet Take one tab in the afternoon for narcolepsy. 30 Tab 10/18/2018 11/15/2018 documented in this encounter Miscellaneous Notes * Telephone Encounter - Corrina Ac RN - 10/18/2018 1103 EST Pt last seen on 09/24/18 by . Pended orders to for review and e-sig. * Telephone Encounter - Barbara Gimenez - 10/18/2018 1019 EST Medication Refill Medication(s) Requested: Ritalin 10mg and Ritalin 20mg Pharmacy (reconcile pharmacy list): [facility] Is patient out of medication? Yes Picking up/mailing (location)/calling in/eprescribe? Eprescribe 30 day supply/90 day supply? 30 Barbara Gimenez 10/18/201810:19 documented in this encounter Plan of Treatment Upcoming Encounters Date Type Department Care Team (Late st Contact Info) Description 06/29/2024 14:15 EDT [facility] [address] [place] [address] Jean Munoz MD [address] [place] [address] documented as of this encounter Visit Diagnoses Not on filedocumented in this encounter Discontinued Medications Medication Sig Discontinue Reason Start Date End Da te methylphenidate HCl (RITALIN;METHYLIN) 10 mg tablet Take one tab in the afternoon for narcolepsy. Reorder 09/20/2018 10/18/2018 methylphenidate HCl (RITALIN;METHYLIN) 20 mg tablet Take 2 tabs by mouth in the morning. Reorder 09/20/2018 10/18/2018 documented as of this encounter Additional Health Concerns Infection Onset Date Last Indicated Resolved Time R/O COVID-19 05/15/2022 05/15/2022 05/20/2022 22:1 6 EDT R/O COVID-19 11/14/2022 11/14/2022 11/14/2022 19:1 6 EST documented as of this encounter Care Teams Oliving Machine Operator Relationship Specialty Start Date End Date Jean Munoz MD [address] [place] [address] PCP - General 12/31/08 Manny Rizzo MD [address] [place] [phone] 04/20/10 Afia Valle MD [address] [place] [address] [address] [place] [phone] Care Team Radiation Oncology 07/02/21 Jesi Leong LICSW [address] [place] [phone] Special Effects Specialist 12/24/21 09/20/22 Jesi Leong, [facility] [address] [place] [phone] Behavioral Health Special Effects SpecialistRegistered Medical Assistant Care 10/19/22 01/23/24 documented as of this encounter
--- OUTSIDE RECORDS SUMMARY | 2024-06-10 07:17 | XMS_ITS | Encounter Summary ---
Author Organization [facility] Address [address] [place] [address] Care Team Providers Care Rn Endoscopy Name Role Phone Jean Munoz MD Primary Care Provider Manny Rizzo MD Unavailable Encounter Details Date Type Department Care Team (Late st Contact Info) Description 01/18/2019 Results Only Imaging [facility] [address] [place] [address] Jean Munoz MD [address] [place] [address] Social History Tobacco Use Types [...] Office Visit [facility] [address] [place] [address] Jean Munoz MD [address] [place] [phone] documented as of this encounter Visit Diagnoses Not on filedocumented in this encounter Care Teams Rn Endoscopy Relationship Specialty Start Date End Date Jean Munoz MD [address] [place] [address] PCP - General 12/31/08 Manny Rizzo MD [address] [place] [address] 04/20/10 documented as of this encounter
--- OUTSIDE RECORDS SUMMARY | 2024-06-10 07:17 | XMS_ITS | Encounter Summary ---
Author Organization [facility] Address [address] [place] [address] Care Team Providers Care Middle School Volleyball Coach Name Role Phone Jean Munoz MD Primary Care Provider Manny Rizzo MD Unavailable Reason for Visit * Reason Onset Date Comments Appointment Related 01/04/2019 Encounter Details Date Type Department Care Team (Late st Contact Info) Description 01/04/2019 Telephone [facility] Sleep Program - [address] [phone] Tiana Bacon [address] [place] [address] Appointment Related Social History Tobacco [...] encounter Miscellaneous Notes * Telephone Encounter - Eliza Bone - 01/04/2019 1047 EDT Called pt and rescheduled her FUR for 02/[address] Bacon's Bump list documented in this encounter Plan of Treatment Upcoming Encounters Date Type Department Care Team (Late st Contact Info) Description 06/29/2024 14:15 EDT Office Visit [facility] [address] [place] [address] Jean Munoz MD [address] [place] [address] documented as of this encounter Visit Diagnoses Not on filedocumented in this encounter Care Teams Middle [employer] Volleyball Coach Relationship Specialty Start Date End Date Jean Munoz MD [address] [place] [phone] PCP - General 12/31/08 Manny Rizzo MD [address] [place] [phone] 04/20/10 documented as of this encounter
--- OUTSIDE RECORDS SUMMARY | 2024-06-10 07:17 | XMS_ITS | Encounter Summary ---
Author Organization [facility] Address [address] [place] [address] Care Team Providers Care Tobacco Farmworker Name Role Phone Jean Munoz MD Primary Care Provider Manny Rizzo MD Unavailable Reason for Visit * Reason Onset Date Comments Appointment Related 01/02/2019 Encounter Details Date Type Department Care Team (Late st Contact Info) Description 01/02/2019 Telephone [facility] Sleep Program - [address] [address] Tiana Bacon [address] [place] [address] Appointment Related Social History Tobacco [...] encounter Miscellaneous Notes * Telephone Encounter - Britney Tai - 01/02/2019 1729 EDT Calling patient to reschedule 02/[address] Bacon. Spoke with patient and scheduled FUR for 02/[address] Bacon. documented in this encounter Plan of Treatment Upcoming Encounters Date Type Department Care Team (Late st Contact Info) Description 06/29/2024 14:15 EDT [facility] [address] [place] [address] Jean Munoz MD [address] [place] [address] documented as of this encounter Visit Diagnoses Not on filedocumented in this encounter Care Teams Tobacco Farmworker Relationship Specialty Start Date End Date Jean Munoz MD [address] [place] [phone] PCP - General 12/31/08 Manny Rizzo MD [address] [place] [address] 04/20/10 documented as of this encounter
--- OUTSIDE RECORDS SUMMARY | 2024-06-10 07:17 | XMS_ITS | Encounter Summary ---
Author Organization [facility] Address [address] [place] [address] Care Team Providers Care Geriatric Physician Name Role Phone Jean Munoz MD Primary Care Provider Manny Rizzo MD Unavailable Reason for Visit * Reason Comments Other Encounter Details Date Type Department Care Team (Late st Contact Info) Description 09/16/2018 [facility] [address] [place] [address] Jean Munoz MD [address] [place] [address] Other Social History Tobacco Use Types [...] HOURS as needed for nausea 25 Tab 09/19/2018 11/10/2018 documented in this encounter Miscellaneous Notes * Telephone Encounter - Yadira Mccauley RN - 09/19/2018 1143 EST Medication(s) Requested: Phenergan 25 [facility] Pharmacy: [facility] Is patient out of medication? Unknown Last Refill Date: 07/22/18 Last Visit Date with Ordering Provider: 08/18/18 Next Non-Acute Visit Date Scheduled with Care Team: 11/10/18 Yadira Mccauley RN 09/19/2018 11:49 documented in this encounter Plan of Treatment Upcoming Encounters Date Type Department Care Team (Late st Contact Info) Description 06/29/2024 14:15 EDT Office Visit [facility] [address] [place], [place] [phone] Jean Munoz MD [address] [place] [phone] documented as of this encounter Visit Diagnoses Not on filedocumented in this encounter Discontinued Medications Medication Sig Discontinue Reason Start Date End Da te promethazine (PHENERGAN) 25 mg tablet TAKE ONE TABLET BY MOUTH EVERY SIX HOURS as needed for nausea 07/22/2018 09/19/2018 documented as of this encounter Care Teams Geriatric Physician Relationship Specialty Start Date End Date Jean Munoz MD [address] [place] [address] PCP - General 12/31/08 Manny Rizzo MD [address] [place] [phone] 04/20/10 documented as of this encounter
--- OUTSIDE RECORDS SUMMARY | 2024-06-10 07:17 | XMS_ITS | Encounter Summary ---
Author Organization [facility] Address [address] [place] [address] Care Team Providers Care Special Needs Teacher Name Role Phone Jean Munoz MD Primary Care Provider Manny Rizzo MD Unavailable Reason for Visit * Reason Onset Date Comments Medications Refill 07/05/2018 Encounter Details Date Type Department Care Team (Late st Contact Info) Description 07/05/2018 Refill [facility] [address] [place], [place] [phone] Jean Munoz MD [address] [place] [address] Medications Refill Social History Tobacco [...] Dispensed Refills Start Date End Da te lancetsIndications:Impaire d glucose tolerance Brand:one touch ultra, tests 2 times daily 100 Each 2 07/05/2018 07/08/2021 blood glucose (BLOOD GLUCOSE TEST) test stripsIndications:Impaired glucose tolerance 1 Strip by misc (non-drug; combo route) route 2 times daily. 100 Each 1 07/05/2018 07/08/2021 documented in this encounter Miscellaneous Notes * Telephone Encounter - Gina [place] - 07/05/2018 1252 EDT Reason for Call: Medications Refill Summary/Symptoms: Patient needs refill for lancets And Test strips. Patient has a one touch ultra Onset and Duration? na Appointment Offered? Madeline [place] 07/05/2018 12:53 documented in this encounter Plan of Treatment Upcoming Encounters Date Type Department Care Team (Late st Contact Info) Description 06/29/2024 14:15 EDT Office Visit [facility] [address] [place], [place] [phone] Jean Munoz MD [address] [place] [address] documented as of this encounter [...] te blood glucose (BLOOD GLUCOSE TEST) test strips 1 Strip by misc (non-drug; combo route) route 2 times daily. Reorder 01/14/2017 07/05/2018 documented as of this encounter Care Teams Special Needs Teacher Relationship Specialty Start Date End Date Jean Munoz MD [address] [place] [phone] PCP - General 12/31/08 Manny Rizzo MD [address] [place] [address] 04/20/10 documented as of this encounter
--- OUTSIDE RECORDS SUMMARY | 2024-06-10 07:17 | XMS_ITS | Encounter Summary ---
Author Organization [facility] Address [address] [place] [address] Care Team Providers Care Hospice Bereavement Coordinator Name Role Phone Jean Munoz MD Primary Care Provider Manny Rizzo MD Unavailable Afia Valle MD Unavailable Jesi Leong CONTROL ENGINEER Unavailable SaloJesi shanks CONTROL ENGINEER Unavailable Reason for Visit * Reason Onset Date Comments Medications Refill 11/15/2018 Encounter Details Date Type Department Care Team (Late st Contact Info) Description 11/15/2018 Refill [facility] Sleep Program - [address] [address] Tiana Bacon [address] [place] [address] Medications Refill Social History Tobacco [...] by mouth in the morning. 60 tablet 11/15/2018 12/13/2018 methylphenidate HCl (RITALIN;METHYLIN) 10 mg tablet Take one tab in the afternoon for narcolepsy. 30 tablet 11/15/2018 12/13/2018 documented in this encounter Miscellaneous Notes * Telephone Encounter - Corrina Ac RN - 11/15/2018 1208 EST Pt last seen on 09/14/18. Refill requests for ritalin. Orders pended to . * Telephone Encounter - Nicki Dunbar - 11/15/2018 1200 EST PT called and needs a medication refill: 20 MG Ritalin (one days worth left) 30 MG Ritalin (one days worth left) Pt uses the pharmacy at [facility]. documented in this encounter Plan of Treatment Upcoming Encounters Date Type Department Care Team (Late st Contact Info) Description 06/29/2024 14:15 EDT Office Visit [address] [place] [address] Jean Munoz MD [address] [place] [address] documented as of this encounter Visit Diagnoses Not on filedocumented in this encounter Discontinued Medications Medication Sig Discontinue Reason Start Date End Da te methylphenidate HCl (RITALIN;METHYLIN) 10 mg tablet Take one tab in the afternoon for narcolepsy. Reorder 10/18/2018 11/15/2018 methylphenidate HCl (RITALIN;METHYLIN) 20 mg tablet Take 2 tabs by mouth in the morning. Reorder 10/18/2018 11/15/2018 documented as of this encounter Additional Health Concerns Infection Onset Date Last Indicated Resolved Time R/O COVID-19 05/15/2022 05/15/2022 05/20/2022 22:1 6 EDT R/O COVID-19 11/14/2022 11/14/2022 11/14/2022 19:1 6 EST documented as of this encounter Care Teams Hospice Bereavement Coordinator Relationship Specialty Start Date End Date Jean Munoz MD [address] [place] [phone] PCP - General 12/31/08 Manny Rizzo MD [address] [place] [phone] 04/20/10 Afia Valle MD [address] [facility] 2 [place] [phone] Care Team Radiation Oncology 07/02/21 Jesi Leong [facility] [address] [place] [address] Psychodramatist 12/24/21 09/20/22 Jesi Leong, [facility] [address] [place] [address] Behavioral Health PsychodramatistCritical Care Nurse Care 10/19/22 01/23/24 documented as of this encounter
--- OUTSIDE RECORDS SUMMARY | 2024-06-10 07:17 | XMS_ITS | Encounter Summary ---
Author Organization [facility] Address [address] [place] [address] Care Team Providers Care Ferryboat Operator Helper Name Role Phone Jean Munoz MD Primary Care Provider Manny Rizzo MD Unavailable Afia Valle MD Unavailable Reason for Visit * Reason Onset Date Comments DME 10/27/2018 Encounter Details Date Type Department Care Team (Late st Contact Info) Description 10/27/2018 Telephone [facility] Sleep Program - [address] [phone] Tiana Bacon [facility] [place] [address] DME Social History Tobacco Use Types Packs/Day [...] * Telephone Encounter - Britney Tai - 10/27/2018 1007 EST Patient called, said hasn't heard from [facility] regarding Bi-PAP and is wondering if we know more. I explained it looks like the order was generated and I believe it was sent to [facility], I requested patient call [facility] and check in. Call back if there are any issues. Patient verbalized agreement with this plan. documented in this encounter Plan of Treatment Upcoming Encounters Date Type Department Care Team (Late st Contact Info) Description 06/29/2024 14:15 EDT Office Visit [facility] [address] [place], [place] [phone] Jean Munoz MD [address] [place] [address] documented as of this encounter Visit Diagnoses Not on filedocumented in this encounter Care Teams Ferryboat Operator Helper Relationship Specialty Start Date End Date Jean Munoz MD [address] [place] [address] PCP - General 12/31/08 Manny Rizzo MD [address] [place] [phone] 04/20/10 Afia Valle MD [address] [facility], [facility] [address] [place] [phone] MD Care Team Radiation Oncology 07/02/21 documented as of this encounter
--- OUTSIDE RECORDS SUMMARY | 2024-06-10 07:17 | XMS_ITS | Encounter Summary ---
Author Organization [facility] Address [address] [place] [address] Care Team Providers Care Event Set Up Specialist Name Role Phone Jean Munoz MD Primary Care Provider Manny Rizzo MD Unavailable Reason for Visit * Reason Comments Other Encounter Details Date Type Department Care Team (Late st Contact Info) Description 11/09/2018 [facility] [address] [place] [address] Jean Munoz MD [address] [place] [address] Other Social History Tobacco Use Types [...] ([facility]) INHALE TWO PUFFS (2.5 mcg) daily as directed 12 g 11/09/2018 02/07/2019 documented in this encounter Miscellaneous Notes * Telephone Encounter - Jim Garcia RN - 11/09/2018 1129 EST Medication(s) Requested: Spiriva Preferred Pharmacy: [facility] Is patient out of medication? Unknown Last Refill Date: 06/06/18 12 g 1 RF Last Visit Date with Ordering Provider: 08/18/18 /Next Non-Acute Visit Date Scheduled with Care Team: Yes. tomorrow JIM GARCIA RN 11/09/2018 11:33 documented in this encounter Plan of Treatment Upcoming Encounters Date Type Department Care Team (Late st Contact Info) Description 06/29/2024 14:15 EDT Office Visit [facility] 3 [place] [address] Jean Munoz MD [address] [place] [address] documented as of this encounter Visit Diagnoses Diagnosis Chronic obstructive pulmonary disease, unspecified COPD type ([facility])- Primary Screening for osteoporosis- Primary [...] End Da te SPIRIVA RESPIMAT 1.25 mcg/actuation inhalerIndications:Chr onic obstructive pulmonary disease, unspecified COPD type ([facility]) inhale 2 inhalations (2.5 mcg) daily as directed Reorder 05/17/2018 11/09/2018 documented as of this encounter Care Teams Event Set Up Specialist Relationship Specialty Start Date End Date Jean Munoz MD [address] [place] [address] PCP - General 12/31/08 Manyn Rizzo MD [address] [place] [address] 04/20/10 documented as of this encounter
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
--- OUTSIDE RECORDS SUMMARY | 2024-06-10 07:17 | XMS_ITS | Encounter Summary ---
Author Organization [facility] Address [address] [place] [address] Care Team Providers Care Test Borer Name Role Phone Jean Munoz MD Primary Care Provider Manny Rizzo MD Unavailable Afia Valle MD Unavailable SaloJesi shanks PLANER OPERATOR / GRADER Unavailable SaloJesi shanks PLANER OPERATOR / GRADER Unavailable Reason for Visit * Reason Onset Date Comments Medications Refill 08/23/2018 Encounter Details Date Type Department Care Team (Late st Contact Info) Description 08/23/2018 Refill [facility] - [address] [address] Tiana Bacon [address] [place] [address] Medications Refill Social History Tobacco [...] by mouth in the morning. 60 Tab 08/23/2018 09/20/2018 methylphenidate HCl (RITALIN;METHYLIN) 10 mg tablet Take one tab in the afternoon for narcolepsy. 30 Tab 08/23/2018 09/20/2018 documented in this encounter Miscellaneous Notes * Telephone Encounter - Corrina Ac RN - 08/23/2018 1120 EST Pended ritalin orders to for review and e-prescribing. * Telephone Encounter - Britney Tai - 08/23/2018 1110 EST Spoke with patient and rescheduled bumped appt for 09/14/18 1430. * Telephone Encounter - Corrina Ac RN - 08/23/2018 0859 EST Pt last seen on 06/29/17 by Fanny. Had appt scheduled on 11/09/18 but is cancelled in the system. Pt will need appt scheduled before a refill can be processed. Routed message to PSS for scheduling. * Telephone Encounter - Barbara Gimenez - 08/23/2018 0845 EST Medication Refill Medication(s) Requested: Ritalin 20mg and Ritalin 10mg Pharmacy (reconcile pharmacy list): [facility] [place] Is patient out of medication? No Picking up/mailing (location)/calling in/eprescribe? Eprescribe 30 day supply/90 day supply? 30 Barbara Gimenez 08/23/20188:45 documented in this encounter Plan of Treatment Upcoming Encounters Date Type Department Care Team (Late st Contact Info) Description 06/29/2024 14:15 EDT Office Visit [facility] [address] [place], [place] [phone] Jean Munoz MD [address] [place] [phone] documented as of this encounter Visit Diagnoses Not on filedocumented in this encounter Discontinued Medications Medication Sig Discontinue Reason Start Date End Da te methylphenidate HCl (RITALIN;METHYLIN) 10 mg tablet Take one tab in the afternoon for narcolepsy. Reorder 07/26/2018 08/23/2018 methylphenidate HCl (RITALIN;METHYLIN) 20 mg tablet Take 2 tabs by mouth in the morning. Reorder 07/26/2018 08/23/2018 documented as of this encounter Additional Health Concerns Infection Onset Date Last Indicated Resolved Time R/O COVID-19 05/15/2022 05/15/2022 05/20/2022 22:1 6 EDT R/O COVID-19 11/14/2022 11/14/2022 11/14/2022 19:1 6 EST documented as of this encounter Care Teams Test Borer Relationship Specialty Start Date End Date Jean Munoz MD [address] [place] [phone] PCP - General 12/31/08 Manny Rizzo MD [address] [place] [phone] 04/20/10 Afia Valle MD [address] [place] [address] [address] [place] [phone] Care Team Radiation Oncology 07/02/21 Jesi Leong [facility] [address] [place] [phone] Rate Supervisor 12/24/21 09/20/22 Jesi Leong [facility] [address] [place] [phone] Behavioral Health Rate SupervisorUtility Manager Care 10/19/22 01/23/24 documented as of this encounter
--- NOTE | 2024-06-10 07:18 | W.ED.GENAD ---
Discharge Plan Disposition Patient Disposition: Home Condition: Stable Discharge Details Clinical Impression: Acute exacerbation of chronic obstructive pulmonary disease, GERD (gastroesophageal reflux disease), Chronic back pain, Asthma, Cigarette smoker, KATJA (obstructive sleep apnea), History of lung cancer, Primary cancer of right upper lobe of lung Primary Care Provider: Manjeet Lynne ED Provider: Magaly Lang Home Meds and New Rx's Prescriptions: New azithromycin [Zithromax Z-Narendra] 250 mg tablet See Rx Instructions .ROUTE .COMPLEX Qty: 6 0RF Rx Instructions: For 250 mg dose pack: take 500 mg today (day 1), then 250 mg for 4 days (days 2-5) prednisone 20 mg tablet 40 mg PO DAILY 5 Days Qty: 10 0RF No Action Incruse Ellipta 62.5 mcg/actuation blister with device 1 inh inhalation DAILY Qty: 30 12RF benzonatate 100 mg capsule 100 mg PO TID Qty: 90 6RF fluticasone propion-salmeterol [Advair HFA] 115-21 mcg/actuation HFA aerosol inhaler 2 puff inhalation BID Qty: 12 12RF Rx Instructions: administer with spacer prednisone 20 mg tablet 40 mg PO DAILY Qty: 10 0RF Rx Instructions: Take 2 tablets once a day for 5 days. methylphenidate HCl 10 mg tablet 10 mg PO QPM Patient Comments: hydrocodone-acetaminophen 7.5-325 mg tablet 1 tab PO Q6H PRN (Reason: pain) methocarbamol 500 mg tablet 1,000 mg PO HS Patient Comments: TAKE TWO TABLETS BY MOUTH DAILY AT 9PM AT BEDTIME zolpidem 5 mg tablet 5 mg PO QHS buspirone 15 mg tablet 15 mg PO .COMPLEX Rx Instructions: 15 mg orally QD-TID; ondansetron HCl 4 mg tablet 4 mg PO Q8H PRN (Reason: nausea) promethazine 25 mg tablet 25 mg PO Q6H PRN (Reason: nausea) sumatriptan succinate 100 mg tablet 100 mg PO ONCE PRN (Reason: migraine headache) levalbuterol tartrate 45 mcg/actuation HFA aerosol inhaler 2 inh INHALATION Q4H PRN (Reason: shortness of breath or wheezing) ipratropium-albuterol 0.5 mg-3 mg(2.5 mg base)/3 mL solution for nebulization 3 ml inhalation Q4H PRN (DME) lancets Misc See Rx Instructions .Route Rx Instructions: Check blood glucose 2x daily Spiriva Respimat 2.5 mcg/actuation mist 2 puff inhalation BID budesonide-formoterol [Symbicort] 80-4.5 mcg/actuation HFA aerosol inhaler 2 puff inhalation BID (DME) OneTouch Ultra Test Strip See Rx Instructions .Route Rx Instructions: Test blood glucose 2x daily methylphenidate HCl 20 mg tablet 40 mg PO DAILY montelukast 10 mg tablet 10 mg PO DAILY pregabalin 300 mg capsule 300 mg PO BID Patient Comments: TAKE ONE CAPSULE BY MOUTH TWICE DAILY DAILY MAX 2 CAPSULES ropinirole 2 mg tablet 2 mg PO HS Patient Comments: TAKE ONE TABLET BY MOUTH DAILY AT 9PM AT BEDTIME lidocaine HCl [Lidocaine Viscous] 2 % solution 1 applic mucous membrane .q6 prn Patient Comments: MIX 5 MLS LIDOCAINE WITH 5 MLS MYLANTA OR MAALOX, SWISH AND SWALLOW FOR SWALLOWING PAIN EVERY 6 HOURS NEEDED duloxetine 60 mg capsule,delayed release(DR/EC) 120 mg PO DAILY (DME) OneTouch Ultra Test Strip MISCELLANEOUS Patient Comments: USE TO TEST TWO TIMES A DAY omeprazole 40 mg capsule,delayed release(DR/EC) 40 mg PO DAILY Patient Comments: TAKE ONE CAPSULE BY MOUTH EVERY DAY Spiriva Respimat 2.5 mcg/actuation mist 2 inh INHALATION DAILY Patient Comments: INHALE 2 PUFFS DIRECTED DAILY doxycycline hyclate 100 mg capsule 100 mg PO DAILY benzonatate 150 mg capsule 150 mg PO TID PRN (Reason: cough) Qty: 30 0RF Discharge Instructions Instructions: COPD Exacerbation, Adult ED Additional Instructions: You were seen in the emergency department today for evaluation of shortness of breath and cough. In our department you had a full physical examination performed, had laboratory studies that were reassuring including a negative COVID, influenza, and RSV swab. Your chest x-ray showed the area in your right upper lung where a mass was previously identified, and you should continue to follow with your cancer doctors in [place] for this finding. Your symptoms are most concerning for COPD exacerbation, for which you were started on antibiotics (azithromycin, please take all of this medication until it is gone, even if you start to feel better). I have also provided you with a prednisone prescription to be taken for the next 5 days to reduce inflammation. Please continue to use all of your inhalers, follow-up with your outpatient providers, and use Tylenol for management of fever. Thank you for allowing us to be part of your care. HPI General Date/Time Provider Initiated Documentation: 06/10/24 06:59. Limitations to Documentation: no limitations. Information obtained by: patient, family and old records reviewed. 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 The patient reports that her partner had pneumonia about a week ago and she is worried that she caught it. States that she has had about 1 week of worsening shortness of breath, cough that feels junky but is not productive of any sputum. She endorses posttussive emesis, no hemoptysis. Patient reports that she has some discomfort when she coughs but no chest pain at rest. Has no personal cardiac history, denies leg swelling or calf tenderness. The patient has been taking her home inhalers but she reports that her home nebulizer machine is missing, so she has not been able to use that. Last oral steroid course was March of this year. She has used NIPPV in the past, has never been intubated and does not want to be. Patient reports that she has had an intermittent fever, last Tylenol this morning. Exam: Gen: Awake and alert, in no apparent distress HEENT: Non-icteric sclera, conjunctiva not injected Neck: Supple, no meningismus Lungs: Mild to moderate respiratory distress with intermittent tachypnea, dry to rattling cough appreciated during this provider's examination, lung sounds with scattered wheezes throughout CV: Appears well perfused, heart with regular rate and rhythm, strong distal pulses Abdomen: Non-distended, soft MSK: Moves 4 extremities without apparent limitation in ROM. No unilateral calf swelling or tenderness, no peripheral edema Skin: Visualized skin without rashes, cyanosis. Neuro: Normal Gait, no obvious focal deficits or facial asymmetry. Speaks in full, clear sentences. Psych: Appropriate for situation. MDM: This is a 63-year-old female patient presenting for evaluation of shortness of breath, subjective fever, and cough. My differential includes but is not limited to upper respiratory infection, pneumonia, COPD exacerbation. I certainly considered hypoxic or hypercarbic respiratory failure. I have a lower concern based on my history and physical examination for pulmonary edema, pneumothorax, pleural effusion, or pulmonary embolism. The patient has no chest pain at rest to suggest ACS. She is currently without fever, tachycardia, or hemodynamic instability to suggest severe bacterial infection such as sepsis or bacteremia. We will obtain laboratory studies to include CBC, CMP, Pro-Dragan, magnesium, VBG, and will obtain a Fluvid swab. I will obtain a chest x-ray. Given the patient is wheezing I will provide her with a duo nebulizer treatment as well as a dose of prednisone. ED Course: I independently interpreted the laboratory studies, which show no significant leukocytosis, anemia, or thrombocytopenia. The chemistry panel is without evidence of electrolyte abnormality other than mild, chronic hypokalemia, no kidney dysfunction, or liver injury. VBG without evidence of acidosis or hypercarbia. Her procalcitonin is very low. Viral swab negative. EKG was evaluated by myself, showing a normal sinus rhythm without evidence of ischemia, interval abnormality, or ectopy. Independently interpreted the patient's chest x-ray, which redemonstrates the right upper lobe infiltrate, unchanged from priors and with no new focal consolidations or other abnormalities. I am most concerned for COPD exacerbation in this patient, and for this reason provided her with a 5-day course of prednisone as well as a course of azithromycin. The patient was counseled to continue all inhalers, and did note an improvement in her breathing and cough after nebulizer treatment. She has a follow-up appointment scheduled with her outpatient providers and will make them aware of this ED visit. At this time, the patient has had a full medical evaluation and is safe for discharge to home. They are hemodynamically stable, ambulatory, and tolerating PO. They are understanding of the follow-up plan and return precautions. They left our facility without incident. Magaly Lang MD Related Data Home Medications ?Medication ?Instructions ?Recorded ?Confirmed blood sugar diagnostic (OneTouch 02/17/24 06/10/24 Ultra Test strips) doxycycline hyclate 100 mg capsule 100 mg PO DAILY 02/17/24 06/10/24 duloxetine 60 mg capsule,delayed 120 mg PO DAILY 02/17/24 06/10/24 release lidocaine HCl 2 % mucosal solution 1 applic mucous membrane .q6 prn 02/17/24 06/10/24 (Lidocaine Viscous) methylphenidate HCl 20 mg tablet 40 mg PO DAILY 02/17/24 06/10/24 montelukast 10 mg tablet 10 mg PO DAILY Allergies 02/17/24 06/10/24 omeprazole 40 mg capsule,delayed 40 mg PO DAILY 02/17/24 06/10/24 release pregabalin 300 mg capsule 300 mg PO BID 02/17/24 06/10/24 ropinirole 2 mg tablet 2 mg PO HS 02/17/24 06/10/24 tiotropium bromide 2.5 2 inh inhalation DAILY 02/17/24 06/10/24 mcg/actuation mist for inhalation (Spiriva Respimat) benzonatate 150 mg capsule 150 mg PO TID PRN cough #30 caps 02/23/24 06/10/24 benzonatate 100 mg capsule 100 mg PO TID #90 caps 03/20/24 06/10/24 fluticasone propionate 115 2 puff inhalation BID #12 grams 03/20/24 06/10/24 mcg-salmeterol 21 mcg/actuation HFA inhaler (Advair HFA) prednisone 20 mg tablet 40 mg (2 x 20 mg) PO DAILY #10 tabs 03/20/24 06/10/24 umeclidinium 62.5 mcg/actuation 1 inh inhalation DAILY #30 ea 03/20/24 06/10/24 blister powder for inhalation (Incruse Ellipta) blood sugar diagnostic (OneTouch 05/03/24 06/10/24 Ultra Test strips) budesonide-formoterol HFA 80 2 puff inhalation BID 05/03/24 06/10/24 mcg-4.5 mcg/actuation aerosol inhaler (Symbicort) buspirone 15 mg tablet 15 mg PO .COMPLEX 05/03/24 06/10/24 hydrocodone 7.5 mg-acetaminophen 1 tab PO Q6H PRN pain 05/03/24 06/10/24 325 mg tablet ipratropium 0.5 mg-albuterol 3 mg 3 ml inhalation Q4H PRN 05/03/24 06/10/24 (2.5 mg base)/3 mL nebulization soln lancets 05/03/24 06/10/24 levalbuterol tartrate 45 2 inh inhalation Q4H PRN shortness 05/03/24 06/10/24 mcg/actuation aerosol inhaler of breath or wheezing methocarbamol 500 mg tablet 1,000 mg PO HS 05/03/24 06/10/24 methylphenidate HCl 10 mg tablet 10 mg PO QPM 05/03/24 06/10/24 ondansetron HCl 4 mg tablet 4 mg PO Q8H PRN nausea 05/03/24 06/10/24 promethazine 25 mg tablet 25 mg PO Q6H PRN nausea 05/03/24 06/10/24 sumatriptan succinate 100 mg tablet 100 mg PO ONCE PRN migraine 05/03/24 06/10/24 headache tiotropium bromide 2.5 2 puff inhalation BID 05/03/24 06/10/24 mcg/actuation mist for inhalation (Spiriva Respimat) zolpidem 5 mg tablet 5 mg PO QHS 05/03/24 06/10/24 azithromycin 250 mg tablet See Rx Instructions PO .COMPLEX #6 06/10/24 (Zithromax Z-Narendra) tabs prednisone 20 mg tablet 40 mg (2 x 20 mg) PO DAILY 5 days 06/10/24 #10 tabs Previous Rx's ?Medication ?Instructions ?Recorded benzonatate 150 mg capsule 150 mg PO TID PRN cough #30 caps 02/23/24 benzonatate 100 mg capsule 100 mg PO TID #90 caps 03/20/24 fluticasone propionate 115 2 puff inhalation BID #12 grams 03/20/24 mcg-salmeterol 21 mcg/actuation HFA inhaler (Advair HFA) prednisone 20 mg tablet 40 mg (2 x 20 mg) PO DAILY #10 tabs 03/20/24 umeclidinium 62.5 mcg/actuation 1 inh inhalation DAILY #30 ea 03/20/24 blister powder for inhalation (Incruse Ellipta) azithromycin 250 mg tablet See Rx Instructions PO .COMPLEX #6 06/10/24 (Zithromax Z-Narendra) tabs prednisone 20 mg tablet 40 mg (2 x 20 mg) PO DAILY 5 days 06/10/24 #10 tabs Allergies Allergy/AdvReac Type Severity Reaction Status Date / Time ketorolac (From Toradol) Allergy Severe Anaphylaxis Verified 06/10/24 07:06 ibuprofen (From Motrin) Allergy Intermediate Itching Verified 06/10/24 07:06 General Stated Complaint: RespSymp DMITRI: 3 Course Vital Signs Vital signs: Vital Signs Temperature 37.0 C 06/10/24 07:01 Pulse 88 06/10/24 07:01 Respiratory Rate 18 06/10/24 07:01 Blood Pressure 128/74 06/10/24 07:01 Pulse Oximetry 99 06/10/24 07:01 Temperature 37.0 C 06/10/24 07:01 Temperature Source Oral 06/10/24 07:01 Pulse 88 06/10/24 07:01 Respiratory Rate 18 06/10/24 07:01 Blood Pressure 128/74 06/10/24 07:01 Blood Pressure Position Sitting 06/10/24 07:01 Pulse Oximetry 99 06/10/24 07:01 Oxygen Delivery Method Room Air 06/10/24 07:01 Oxygen Flow Rate 0 06/10/24 07:01 Pain Level 5 06/10/24 07:01 Medical Decision Making Quality:SDOH Health Related Social Needs: Health related social needs food insecurity, transpo insecurity Health related social needs details will meet with [facility] All Active Problems (Updated 06/10/24 @ 08:39 by Magaly Lang MD) Acute exacerbation of chronic obstructive pulmonary disease (Acute) Preventative health care (Acute) Pharyngeal dysphagia (Acute) Hypocalcemia (Acute) Splenic mass (Acute) Burn of lower limb (Acute) Primary cancer of right upper lobe of lung (Acute) Abrasion of back (Acute) Posterior tibial tendon dysfunction (PTTD) of both lower extremities (Acute) Chronic use of opiate for therapeutic purpose (Acute) Traumatic arthritis of right ankle (Acute) Posterior tibial tendonitis (Acute) KATJA (obstructive sleep apnea) (Chronic) Fibromyalgia (Acute) Steroid-induced hyperglycemia (Acute) Nausea (Acute) Hypoxia (Acute) Other disorders of eyelid (Acute) Pyogenic granuloma of eyelid (Acute) Blurry vision, bilateral (Acute) Panlobular emphysema (Acute) Left upper quadrant pain (Acute) Chronic fatigue (Acute) Hesitancy (Acute) Chronic low back pain (Chronic) Depression (Chronic) Degeneration of lumbar or lumbosacral intervertebral disc (Acute) Complications due to internal orthopedic device, implant, and graft (Acute) Menopausal flushing (Acute) Varicose vein of leg (Acute) Patellar bursitis (Acute) Rosacea (Acute) IBS (irritable bowel syndrome) (Chronic) Lumbar radicular syndrome (Acute) Seasonal allergic rhinitis (Acute) Senile nuclear sclerosis (Acute) Cervical spondylosis (Acute) Tear film insufficiency (Acute) Blepharitis of both eyes (Acute) Diplopia (Acute) Vitreous syneresis (Acute) Arthritis (Acute) Chronic pain syndrome (Chronic) Anxiety (Chronic) Contusion (Acute) Fatty liver (Acute) Bronchitis (Acute) Degeneration of cervical intervertebral disc (Acute) Brachial neuritis (Acute) Neuralgia and neuritis (Acute) Lumbago (Acute) 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) Chronic knee pain (Acute) Hip pain (Acute) Narcolepsy (Acute) Insomnia (Acute) Restless legs syndrome (Acute) Asthma (Chronic) Migraine (Chronic) Impaired glucose tolerance (Acute) Cervicalgia (Acute) Obesity (BMI 30-39.9) (Acute) Chronic back pain (Acute) GERD (gastroesophageal reflux disease) (Chronic) Major depressive disorder, recurrent (Acute) History of lung cancer (Acute) Cigarette smoker (Acute) COPD (chronic obstructive pulmonary disease) (Chronic) Medical History (Updated 06/10/24 @ 08:39 by Magaly Lang MD) Acute hypoxemic respiratory failure Dizziness Pneumonia due to infectious organism Narcolepsy without cataplexy Postcalcaneal bursitis Knee contusion Abscess of face Edema of leg Chest pain Peptic ulcer Ankle fracture Surgical History (Updated 04/25/24 @ 16:15 by Kaykay Wilkerson) H/O gastric bypass H/O cystoscopy S/P fine needle aspiration H/O colonoscopy H/O cervical spine surgery History of fundoplication H/O arthroscopy of shoulder H/O vaginal hysterectomy History of salpingectomy Family History (Updated 05/05/24 @ 09:00 by Shaista Zelaya APRN) Sister No problems noted. Brother No problems noted. Mother No problems noted. Father No problems noted. Brother No problems noted. Social History (Updated 05/05/24 @ 08:15 by Felecia Salcido RN) Smoking/Tobacco Use Status: Current every day Tobacco Type: cigarettes Tobacco: How many years used: 48 Quit status: has quit before Second Hand Exposure: Yes Smoking risk assessment performed?: Yes Alcohol Intake: current Alcohol Intake frequency: holidays/special occasions only Drug use: Never Substance use type: does not use Adopted: No Caregiver/Support person: Yes Foster care: No Household members: caregiver Housing: apartment Number of Children: 2 number of grandchildren: 1 Communication Needs: None Education Level: high school Do you need help understanding health information?: Rarely current occupation: Retired Pets and animals: No Sexually active: Yes Do you think of yourself as: straight/heterosexual Current gender identity: female What is your relationship status?: living with partner How often do you talk on the phone with friends or family?: three or more times per week How often do you get together with friends or relatives?: three or more times per week How often do you attend presybeterian or presybeterian services?: 1-3 times per year Do you belong to any clubs or organized social groups?: no Panel score (0-1 are the most socially isolated patients): 2 What type of physical activity do you participate in: walking Duration: 15-30 minutes/day Frequency: 1-2 times per week Shreya/Scientologist: Confucianism Special shreya needs: No Seatbelt use: always Helmet use: Yes Drive intox or ride w/intox corporate driver: No Do you feel safe at home: Yes Do you feel safe in your relationship?: Yes
--- OUTSIDE RECORDS SUMMARY | 2024-06-10 07:18 | XMS_ITS | Encounter Summary ---
Author Organization [facility] Address [address] [place] [address] Care Team Providers Care Citizen Participation Specialist Name Role Phone Jean Munoz MD Primary Care Provider Manny Rizzo MD Unavailable Reason for Visit * Reason Comments Other Encounter Details Date Type Department Care Team (Late st Contact Info) Description 04/06/2018 [facility] [address] [place] [address] Jean Munoz MD [address] [place] [phone] Other Social History Tobacco Use Types [...] visiting a doctor's office or shopping? Yes 03/03/2018 Cognitive Status Response Date of Assessm ent Because of a physical, menta l, or emotional condition, does this person have serious difficulty concentrating, remembering, or making decisions? Yes 03/03/2018 documented as of this encounter Ordered Prescriptions Prescription Sig Dispensed Refills Start Date End Da te DALIRESP 500 mcg tabletIndications:Chronic obstructive pulmonary disease, unspecified COPD type ([facility]) TAKE 1 TABLET BY MOUTH EVERY DAY 90 Tab 4 04/06/2018 06/20/2019 documented in this encounter Miscellaneous Notes * Telephone Encounter - Jean Munoz MD - 04/06/2018 2112 EDT escript done, please notify patient, thanks * Telephone Encounter - Yadira Mccauley RN - 04/06/2018 1522 EDT Medication(s) Requested: daliresp 500 [facility] Is patient out of medication? Unknown Last Refill Date: 10/15/17 Last Visit Date with Ordering Provider: 03/03/18 Next Non-Acute Visit Date Scheduled with Care Team: 05/26/18 Yadira Mccauley RN 04/06/2018 15:22 documented in this encounter Plan of Treatment Upcoming Encounters Date Type Department Care Team (Late st Contact Info) Description 06/29/2024 14:15 EDT Office Visit [facility] [address] [place] [address] Jean Munoz MD [address] [place] [phone] documented as of this encounter Visit Diagnoses Diagnosis Chronic obstructive pulmonary disease, unspecified COPD type ([facility])- Primary Screening for osteoporosis- Primary Special [...] disease, unspecified COPD type ([facility]) Take 1 Tab by mouth daily. Reorder 10/15/2017 04/06/2018 documented as of this encounter Care Teams Citizen Participation Specialist Relationship Specialty Start Date End Date Jean Munoz MD [address] [place] [phone] PCP - General 12/31/08 Manny Rizzo MD [address] [place] [phone] 04/20/10 documented as of this encounter
--- OUTSIDE RECORDS SUMMARY | 2024-06-10 07:18 | XMS_ITS | Encounter Summary ---
Author Organization [facility] Address [address] [place] [address] Care Team Providers Care Marketing Mgr Name Role Phone Jean Munoz MD Primary Care Provider Manny Rizzo MD Unavailable Reason for Visit * Reason Comments Other Encounter Details Date Type Department Care Team (Late st Contact Info) Description 03/06/2018 [facility] [address] [place] [address] Jean Munoz MD [address] [place] [phone] Other Social History Tobacco Use Types [...] Dispensed Refills Start Date End Da te LYRICA 300 mg capsuleIndications:Chroni c low back pain, unspecified back pain laterality, with sciatica presence unspecified TAKE ONE CAPSULE BY MOUTH TWICE DAILY 60 Cap 5 03/08/2018 08/18/2018 documented in this encounter Miscellaneous Notes * Telephone Encounter - Amber Manley NP - 03/08/2018 1632 EDT Signing as covering provider of session, per Dr. Munoz * Telephone Encounter - Jean Munoz MD - 03/08/2018 1459 EDT OK to renew, please send to POD to sign, thanks * Telephone Encounter - Yadira Mccauley RN - 03/08/2018 1048 EDT Medication(s) Requested: lyrica 300 Pref[facility] Pharmacy: [facility] Is patient out of medication? Unknown Last Refill Date: 10/05/17 Last Visit Date with Ordering Provider:03/03/18 Next Non-Acute Visit Date Scheduled with Care Team: 05/26/18 Yadira Mccauley RN 03/08/2018 10:48 documented in this encounter Plan of Treatment Upcoming Encounters Date Type Department Care Team (Late st Contact Info) Description 06/29/2024 14:15 EDT Office Visit [facility] [address] [place] [address] Jean Munoz MD [address] [place] [phone] documented as of this encounter [...] Discontinue Reason Start Date End Da te LYRICA 300 mg capsuleIndications:Chron ic low back pain, unspecified back pain laterality, with sciatica presence unspecified TAKE ONE CAPSULE BY MOUTH TWICE DAILY Reorder 10/05/2017 03/06/2018 documented as of this encounter Care Teams Marketing Mgr Relationship Specialty Start Date End Date Jean Munoz MD [address] [place] [phone] PCP - General 12/31/08 Manny Rizzo MD [address] [place] [phone] 04/20/10 documented as of this encounter
--- OUTSIDE RECORDS SUMMARY | 2024-06-10 07:18 | XMS_ITS | Encounter Summary ---
Author Organization [facility] Address [address] [place] [address] Care Team Providers Care Maxillofacial Pathology Name Role Phone Jean Munoz MD Primary Care Provider Manny Rizzo MD Unavailable Reason for Visit * Reason Comments Other Encounter Details Date Type Department Care Team (Late st Contact Info) Description 04/27/2018 [facility] [address] [place] [address] Jean Munoz MD [address] [place] [phone] Other Social History Tobacco Use Types [...] visiting a doctor's office or shopping? Yes 04/27/2018 Cognitive Status Response Date of Assessm ent Because of a physical, menta l, or emotional condition, does this person have serious difficulty concentrating, remembering, or making decisions? Yes 04/27/2018 documented as of this encounter Ordered Prescriptions Prescription Sig Dispensed Refills Start Date End Da te promethazine (PHENERGAN) 12.5 mg tablet TAKE ONE TABLET BY MOUTH EVERY SIX HOURS NEEDED FOR NAUSEA 30 Tab 1 04/27/2018 05/26/2018 documented in this encounter Miscellaneous Notes * Telephone Encounter - Yadira Mccauley, RN - 04/27/2018 6004 EDT Medication(s) Requested: Phenergan 12.5 Preferred Pharmacy: [facility] Is patient out of medication? Unknown Last Refill Date: 12/14/17 Last Visit Date with Ordering Provider: 03/03/18 Next Non-Acute Visit Date Scheduled with Care Team:05/26/18 Yadira Mccauley RN 04/27/2018 15:58 documented in this encounter Plan of Treatment Upcoming Encounters Date Type Department Care Team (Late st Contact Info) Description 06/29/2024 14:15 EDT Office Visit [facility] [address] [place] [address] Jean Munoz MD [address] [place] [phone] documented as of this encounter Visit Diagnoses Not on filedocumented in this encounter Discontinued Medications Medication Sig Discontinue Reason Start Date End Da te promethazine (PHENERGAN) 12.5 mg tablet Take 1 Tab by mouth every 6 hours as needed for Nausea. Reorder 12/14/2017 04/27/2018 documented as of this encounter Care Teams Maxillofacial Pathology Relationship Specialty Start Date End Date Jean Munoz MD [address] [place] [phone] PCP - General 12/31/08 Manny Rizzo MD [address] [place] [phone] 04/20/10 documented as of this encounter
--- OUTSIDE RECORDS SUMMARY | 2024-06-10 07:18 | XMS_ITS | Encounter Summary ---
Author Organization [facility] Address [address] [place] [address] Care Team Providers Care Radiotelephone Operator Name Role Phone Jean Munoz MD Primary Care Provider Manny Rizzo MD Unavailable Reason for Visit * Reason Onset Date Comments Pharmacy 04/17/2018 Encounter Details Date Type Department Care Team (Late st Contact Info) Description 04/17/2018 Telephone [facility] [address] [place] [address] Tiffanie Fisher, RN [address] [place] [address] Pharmacy Social History Tobacco Use Types Packs/Day [...] Yes 03/03/2018 documented as of this encounter Miscellaneous Notes * Telephone Encounter - Tiffanie Fisher, RN - 04/17/2018 1522 EDT Pharmacist called in regards to antibiotics. Spoke to Marissa Adler NP. Patient is to take Cephalexin 500 mg 1 tab QID. Pharmacist states,OK I will fill. documented in this encounter Plan of Treatment Upcoming Encounters Date Type Department Care Team (Late st Contact Info) Description 06/29/2024 14:15 EDT Office Visit [facility] [address] [place], [place] [phone] Jean Munoz MD [address] [place] [phone] documented as of this encounter Visit Diagnoses Not on filedocumented in this encounter Care Teams Radiotelephone Operator Relationship Specialty Start Date End Date Jean Munoz MD [address] [place] [phone] PCP - General 12/31/08 Manny Rizzo MD [address] [place] [phone] 04/20/10 documented as of this encounter
--- OUTSIDE RECORDS SUMMARY | 2024-06-10 07:18 | XMS_ITS | Encounter Summary ---
Author Organization [facility] Address [address] [place] [address] Care Team Providers Care Traffic Superintendent Name Role Phone Jean Munoz MD Primary Care Provider Manny Rizzo MD Unavailable Reason for Visit * Reason Comments Other Encounter Details Date Type Department Care Team (Late st Contact Info) Description 06/26/2018 [facility] [address] [place] [address] Jean Munoz MD [address] [place] [phone] Other Social History Tobacco Use Types [...] 2 tablets. 9 Tab 3 06/28/2018 10/13/2018 documented in this encounter Miscellaneous Notes * Telephone Encounter - Gina Lawrence - 06/28/2018 1443 EDT Called number came up invalid * Telephone Encounter - Jean Munoz MD - 06/28/2018 0905 EDT escript done, please notify patient, thanks * Telephone Encounter - Lena Bell RN - 06/28/2018 0736 EDT Medication(s) Requested: Imitrex 50 mg [facility]erred Pharmacy: [facility] Is patient out of medication? Unknown Last Refill Date: 02/02/[address] Munoz Last Visit Date with Ordering Provider: 08/18/18 Next Non-Acute Visit Date Scheduled with Care Team: Yes. Lena Bell RN 06/28/2018 7:36 documented in this encounter Plan of Treatment Upcoming Encounters Date Type Department Care Team (Late st Contact Info) Description 06/29/2024 14:15 EDT Office Visit [facility] [address] [place], [place] [phone] Jean Munoz MD [address] [place] [phone] documented as of this encounter [...] 1 tablet by mouth as needed for migraine *daily limit 2 tablets Reorder 02/02/2018 06/26/2018 documented as of this encounter Care Teams Traffic Superintendent Relationship Specialty Start Date End Date Jean Munoz MD [address] [place] [phone] PCP - General 12/31/08 Manny Rizzo MD [address] [place] [phone] 04/20/10 documented as of this encounter
--- OUTSIDE RECORDS SUMMARY | 2024-06-10 07:18 | XMS_ITS | Encounter Summary ---
Author Organization [facility] Address [address] [place] [address] Care Team Providers Care Uptwist Spinner Name Role Phone Jean Munoz MD Primary Care Provider Manny Rizzo MD Unavailable Reason for Visit * Reason Onset Date Comments Medications Refill 02/08/2018 Encounter Details Date Type Department Care Team (Late st Contact Info) Description 02/08/2018 Refill [facility] Sleep Program - [address] [phone] Tiana Bacon [address] [place] [phone] Medications Refill Social History Tobacco Use Types Packs/Day Years Used Date Smoking Tobacco: Former Cigarettes 1.5 52.5 0 09/13/1975 - 09/13/2012 Smokeless Tobacco: Never [...] a physical, menta l, or emotional condition, do you have difficulty doing errands alone such as visiting a doctor's office or shopping? (15 years old or older) Yes 12/27/2016 Cognitive Status Response Date of Assessm ent Because of a physical, menta l, or emotional condition, do you have serious difficulty concentrating, remembering, or making decisions? (5 years old or older) No 12/27/2016 documented as of this encounter Ordered Prescriptions Prescription Sig Dispensed Refills Start Date End Da te methylphenidate HCl (RITALIN;METHYLIN) 20 mg tablet Take 2 tabs by mouth in the morning. 60 Tab 02/08/2018 03/08/2018 methylphenidate HCl (RITALIN;METHYLIN) 10 mg tablet Take one tab in the afternoon for narcolepsy. 30 Tab 02/08/2018 03/08/2018 documented in this encounter Miscellaneous Notes * Telephone Encounter - Paula Ceballos - 02/08/2018 0933 EDT Medication Refill Medication(s) Requested: Ritalin 10mg/20mg Pharmacy (reconcile pharmacy list):[facility] Is patient out of medication? no Picking up/mailing (location)/calling in/eprescribe? 30 day supply/90 day supply? Paula Ceballos 02/08/20189:34 documented in this encounter Plan of Treatment Upcoming Encounters Date Type Department Care Team (Late st Contact Info) Description 06/29/2024 14:15 EDT Office Visit [facility] [address] [place], [place] [phone] Jean Munoz MD [address] [place] [phone] documented as of this encounter Visit Diagnoses Not on filedocumented in this encounter Discontinued Medications Medication Sig Discontinue Reason Start Date End Da te methylphenidate HCl (RITALIN;METHYLIN) 10 mg tablet Take one tab in the afternoon for narcolepsy. Reorder 01/11/2018 02/08/2018 methylphenidate HCl (RITALIN;METHYLIN) 20 mg tablet Take 2 tabs by mouth in the morning. Reorder 01/11/2018 02/08/2018 documented as of this encounter Care Teams Uptwist Spinner Relationship Specialty Start Date End Date Jean Munoz MD [address] [place] [phone] PCP - General 12/31/08 [place] [address] [place] [phone] 04/20/10 documented as of this encounter
--- OUTSIDE RECORDS SUMMARY | 2024-06-10 07:18 | XMS_ITS | Encounter Summary ---
Author Organization [facility] Address [address] [place] [address] Care Team Providers Care Foundry Superintendant Name Role Phone Jean Munoz MD Primary Care Provider Manny Rizzo MD Unavailable Reason for Visit * Reason Onset Date Comments Follow-up 04/19/2018 Care and Concern Call Encounter Details Date Type Department Care Team (Late st Contact Info) Description 04/19/2018 Telephone [facility] [address] [place], [place] [phone] Kaitlyn Montero LPN [address] [place] [address] Follow-up (Care and Concern Call ) Social History Tobacco Use Types Packs/Day [...] visiting a doctor's office or shopping? Yes 04/19/2018 Cognitive Status Response Date of [facility] ent Because of a physical, menta l, or emotional condition, does this person have serious difficulty concentrating, remembering, or making decisions? Yes 04/19/2018 documented as of this encounter Miscellaneous Notes * Telephone Encounter - Kaitlyn Montero LPN - 04/19/2018 1311 EDT We see you were in the Emergency Department for Cellulitis of left foot on 04/18/2018. How are you feeling/symptoms improving? Yes. Slowly. Patient has been taking Keflex. Do you have any questions? No: Can we schedule a follow up visit? No: Encouraged patient to give us a call back if symptoms do notimprove with ABX or has new symptoms. Kaitlyn Montero LPN documented in this encounter Plan of Treatment Upcoming Encounters Date Type Department Care Team (Late st Contact Info) Description 06/29/2024 14:15 EDT Office Visit [facility] [address] [place] [address] Jean Munoz MD [address] [place] [phone] documented as of this encounter Visit Diagnoses Not on filedocumented in this encounter Care Teams Foundry Superintendant Relationship Specialty Start Date End Date Jean Munoz MD [address] [place] [phone] PCP - General 12/31/08 [place] [address] [place] [phone] 04/20/10 documented as of this encounter
--- OUTSIDE RECORDS SUMMARY | 2024-06-10 07:18 | XMS_ITS | Encounter Summary ---
Author Organization [facility] Address [address] [place] [address] Care Team Providers Care Roof Bolter Operator Name Role Phone Jean Munoz MD Primary Care Provider Manny Rizzo MD Unavailable Reason for Visit * Reason Onset Date Comments Prior Auth, Medication 02/16/2018 Spiriva i nhaler Encounter Details Date Type Department Care Team (Late st Contact Info) Description 02/16/[address] [address] Kaitlyn Montero LPN [address] [place] [address] Prior Auth, Medication (Spiriva inhaler) Social History Tobacco Use Types Packs/Day Years [...] No 12/27/2016 documented as of this encounter Miscellaneous Notes * Telephone Encounter - Kaitlyn Montero LPN - 02/18/2018 0901 EDT Prior authorization approval: Medication: Spiriva Respimat 1.25MCG/ACT IN AERS Insurance Co: [place] Approval # (if applicable): N/A Approval dates: Unknown: Did not receive approval letter. Name of Pharmacy notified: [facility] * Telephone Encounter - Kaitlyn Montero LPN - 02/16/2018 0921 EDT [place] sent to insurance (OR Medicaid) for Spiriva inhaler. Waiting for response. Kaitlyn Montero LPN documented in this encounter Plan of Treatment Upcoming Encounters Date Type Department Care Team (Late st Contact Info) Description 06/29/2024 14:15 EDT Office Visit [facility] 3 [place] [address] Jean Munoz MD [address] [place] [phone] documented as of this encounter Visit Diagnoses Not on filedocumented in this encounter Care Teams Roof Bolter Operator Relationship Specialty Start Date End Date Jean Munoz MD [address] [place] [phone] PCP - General 12/31/08 Manny Rizzo MD [address] [place] [phone] 04/20/10 documented as of this encounter
--- OUTSIDE RECORDS SUMMARY | 2024-06-10 07:18 | XMS_ITS | Encounter Summary ---
Author Organization [facility] Address [address] [place] [address] Care Team Providers Care Associate Merchandiser Name Role Phone Jean Munoz MD Primary Care Provider Manny Rizzo MD Unavailable Encounter Details Date Type Department Care Team (Late st Contact Info) Description 03/04/2018 Orders Only [facility] [address] [place] [address] Jean Munoz MD [address] [place] [phone] Chronic use of opiate for therapeutic purpose (Primary Dx) Social History Tobacco Use Types [...] Yes 03/03/2018 documented as of this encounter Plan of Treatment Upcoming Encounters Date Type Department Care Team (Late st Contact Info) Description 06/29/2024 14:15 EDT Office Visit [facility] [address] [place] [address] Jean Munoz MD [address] [place] [phone] documented as of this encounter Procedures Procedure Name Priority Date/Time Associated Diagnosis Comments OUTPATIENT ADD-ON Routine 03/04/2018 17: 13 EDT Chronic use of opiate for therapeutic purpose documented in this encounter Results * OUTPATIENT ADD-ON (03/04/2018 17:13 EDT) Tests to be added OPIATE CONFIRMATION 03/04/2018 17:13 EDT [facility] Diagnosis Code SEE PRISM DOS [id number] 03/04/2018 17:16 T [facility] Number for problems 847 03/04/2018 17:13 EDT [facility] Comment:8500 Accession number [id number] 03/04/2018 17:16 T [facility] Acknowledge ABP Done 8 17:18 [facility] BLOOD SPECIMEN / Unknown 03/04/2018 17:13 EDT 03/04/2018 17:15 EDT Jean Munoz MD HEMATOLOGY & PF 4 ORDERABLES [facility] [address] [place] [address] documented in this encounter Visit Diagnoses Diagnosis Chronic use of opiate for therapeutic purpose- Primary Screening for osteoporosis- Primary Special screening for osteoporosis Primary narcolepsy without cataplexy Chronic pain syndrome Chronic low back pain Lumbago Chronic use of opiate for therapeutic purpose Pain medication agreement Encounter for long-term (current) use of other medications Screen for colon cancer Special screening for malignant neoplasms, colon documented in this encounter Care Teams Associate Merchandiser Relationship Specialty Start Date End Date Jean Munoz MD [address] [place] [phone] PCP - General 12/31/08 Manny Rizzo MD [address] [place] [phone] 04/20/10 documented as of this encounter
--- OUTSIDE RECORDS SUMMARY | 2024-06-10 07:18 | XMS_ITS | Encounter Summary ---
Author Organization [facility] Address [address] [place] [address] Care Team Providers Care Pasteuriser Operator Name Role Phone Jean Munoz MD Primary Care Provider Manny Rizzo MD Unavailable Reason for Visit * Reason Onset Date Comments Medications Refill 05/31/2018 Encounter Details Date Type Department Care Team (Late st Contact Info) Description 05/31/[address] [facility] Sleep Program - [address] [phone] Tiana Bacon [address] [place] [phone] Medications Refill Social History Tobacco Use [...] by mouth in the morning. 60 Tab 06/01/2018 06/28/2018 methylphenidate HCl (RITALIN;METHYLIN) 10 mg tablet Take one tab in the afternoon for narcolepsy. 30 Tab 06/01/2018 06/28/2018 documented in this encounter Miscellaneous Notes * Telephone Encounter - Corrina Ac RN - 06/01/2018 1408 EDT Called pt to let her know her prescriptions were electronically sent * Telephone Encounter - Corrina Ac RN - 05/31/2018 1559 EDT Spoke w/pt. She scheduled her FUR. Let her know there is no problem and refill request routed to . * Telephone Encounter - Corrina Ac RN - 05/31/2018 0818 EDT Pt last seen 06/22/17 with . Message routed to PSS to schedule FUR. Pended orders to . * Telephone Encounter - Barbara Gimenez - 05/31/2018 0806 EDT Medication Refill Medication(s) Requested: Ritalin 20mg and Ritalin 10mg Pharmacy (reconcile pharmacy list): Nikolas Ascencio Is patient out of medication? No Picking up/mailing (location)/calling in/eprescribe? Eprescribe 30 day supply/90 day supply? 30 Barbara Gimenez 05/31/20188:07 documented in this encounter Plan of Treatment Upcoming Encounters Date Type Department Care Team (Late st Contact Info) Description 06/29/2024 14:15 EDT Office Visit [facility] [address] [place] [address] Jean Munoz MD [address] [place] [phone] documented as of this encounter Visit Diagnoses Not on filedocumented in this encounter Discontinued Medications Medication Sig Discontinue Reason Start Date End Da te methylphenidate HCl (RITALIN;METHYLIN) 10 mg tablet Take one tab in the afternoon for narcolepsy. Reorder 05/04/2018 05/31/2018 methylphenidate HCl (RITALIN;METHYLIN) 20 mg tablet Take 2 tabs by mouth in the morning. Reorder 05/04/2018 05/31/2018 documented as of this encounter Care Teams Pasteuriser Operator Relationship Specialty Start Date End Date Jean Munoz MD [address] [place] [phone] PCP - General 12/31/08 Manny Rizzo MD [address] [place] [phone] 04/20/10 documented as of this encounter
--- OUTSIDE RECORDS SUMMARY | 2024-06-10 07:18 | XMS_ITS | Encounter Summary ---
Author Organization [facility] Address [address] [place] [address] Care Team Providers Care Municipal Maintenance Worker Name Role Phone Jean Munoz MD Primary Care Provider Manny Rizzo MD Unavailable Encounter Details Date Type Department Care Team (Late st Contact Info) Description 04/28/2018 Orders Only [facility] Foot & Ankle Program - [address] [address] Danyell Nelson, [address] [place] [address] Social History Tobacco Use Types Packs/Day Years [...] Yes 04/27/2018 documented as of this encounter Plan of Treatment Upcoming Encounters Date Type Department Care Team (Late st Contact Info) Description 06/29/2024 14:15 EDT Office Visit [facility] 3 [place] [address] Jean Munoz MD [address] [place] [phone] documented as of this encounter Visit Diagnoses Not on filedocumented in this encounter Care Teams Municipal Maintenance Worker Relationship Specialty Start Date End Date Jean Munoz MD [address] [place] [phone] PCP - General 12/31/08 Manny Rizzo MD [address] [place] [phone] 04/20/10 documented as of this encounter
--- OUTSIDE RECORDS SUMMARY | 2024-06-10 07:18 | XMS_ITS | Encounter Summary ---
Author Organization [facility] Address [address] [place] [address] Care Team Providers Care Business Management Professor Name Role Phone Jean Munoz MD Primary Care Provider Manny Rizzo MD Unavailable Afia Valle MD Unavailable Jesi eLong MACHINE HELPER Unavailable SaloJesi shanks MACHINE HELPER Unavailable Reason for Visit * Reason Onset Date Comments Medications Refill 06/28/2018 Encounter Details Date Type Department Care Team (Late st Contact Info) Description 06/28/2018 Refill [facility] - [address] [address] Tiana Bacon [address] [place] [address] Medications Refill Social History Tobacco [...] in the morning. 60 Tab 06/29/2018 07/26/2018 methylphenidate HCl (RITALIN;METHYLIN) 10 mg tablet Take one tab in the afternoon for narcolepsy. 30 Tab 06/29/2018 07/26/2018 documented in this encounter Miscellaneous Notes * Telephone Encounter - Corrina Ac RN - 06/28/2018 0819 EDT Pt last seen 06/22/17 by . Has appt scheduled for . Ritalin orders pended to . * Telephone Encounter - Barbara Gimenez - 06/28/2018 0812 EDT Medication Refill Medication(s) Requested: Ritalin 20mg / Ritalin 10mg Pharmacy (reconcile pharmacy list): Nikolas Ascenc[facility] Is patient out of medication? No Picking up/mailing (location)/calling in/eprescribe? Eprescribe 30 day supply/90 day supply? 30 Barbara Gimenez 06/28/20188:12 documented in this encounter Plan of Treatment Upcoming Encounters Date Type Department Care Team (Late st Contact Info) Description 06/29/2024 14:15 EDT Office Visit [facility] [address] [place] [address] Jean Munoz MD [address] [place] [phone] documented as of this encounter Visit Diagnoses Not on filedocumented in this encounter Discontinued Medications Medication Sig Discontinue Reason Start Date End Da te methylphenidate HCl (RITALIN;METHYLIN) 10 mg tablet Take one tab in the afternoon for narcolepsy. Reorder 06/01/2018 06/28/2018 methylphenidate HCl (RITALIN;METHYLIN) 20 mg tablet Take 2 tabs by mouth in the morning. Reorder 06/01/2018 06/28/2018 documented as of this encounter Additional Health Concerns Infection Onset Date Last Indicated Resolved Time R/O COVID-19 05/15/2022 05/15/2022 05/20/2022 22:1 6 EDT R/O COVID-19 11/14/2022 11/14/2022 11/14/2022 19:1 6 EST documented as of this encounter Care Teams Business Management Professor Relationship Specialty Start Date End Date Jean Munoz MD [address] [place] [phone] PCP - General 12/31/08 Manny Rizzo MD [facility] [place] [phone] 04/20/10 Afia Valle MD [address] [place] [address] [address] [place] [phone] MD Care Team Radiation Oncology 07/02/21 Jesi Leong [facility] [address] [place] [phone] Associate Professor Of Mathematics 12/24/21 09/20/22 Jesi Leong [facility] [address] [place] [phone] Behavioral Health Associate Professor Of MathematicsHealth And Physical Education Teacher Care 10/19/22 01/23/24 documented as of this encounter
--- OUTSIDE RECORDS SUMMARY | 2024-06-10 07:18 | XMS_ITS | Encounter Summary ---
Author Organization [facility] Address [address] [place] [address] Care Team Providers Care Drapery Cutter Name Role Phone Jean Munoz MD Primary Care Provider Manny Rizzo MD Unavailable Reason for Referral * Radiology Services (Routine) - New Request Specialty Diagnoses / Procedures Referred By [facility] shiraz Referred To Contact Diagnoses Left foot pain Procedures FOOT 3 OR MORE VIEWS Danyell Nelson DPM [address] [place] [phone] Referral ID Status Reason Start Date Expiration Date V isits Requested Visits Authorized [id number] New Request 04/19/2018 1 1 Reason for Visit * Reason Onset Date Comments Foot Problem 04/19/2018 Encounter Details Date Type Department Care Team (Late st Contact Info) Description 04/19/2018 Orders Only [facility] Foot & Ankle Program - [place] [address] [place] [address] Danyell Nelson DPM [address] [place] [phone] Left foot pain (Primary Dx) Social History Tobacco Use Types [...] Yes 04/19/2018 Cognitive Status Response Date of Assessm ent Because of a physical, menta l, or emotional condition, does this person have serious difficulty concentrating, remembering, or making decisions? Yes 04/19/2018 documented as of this encounter Plan of Treatment Upcoming Encounters Date Type Department Care Team (Late st Contact Info) Description 06/29/2024 14:15 EDT Office Visit [facility] [address] [place] [address] Jean Munoz MD [address] [place] [phone] documented as of this encounter Procedures Procedure Name Priority Date/Time Associated Diagnosis Comments FOOT 3 OR MORE VIEWS Routine 04/19/2018 10:10 EDT Left foot pain documented in this encounter Results * FOOT 3 OR MORE VIEWS (04/19/2018 10:10 EDT) Anatomical Region Laterality Modality Other 04/19/2018 10:1 0 EDT 04/19/2018 13:48 EDT Narrative 04/19/2018 13:48 EDT HISTORY: ?? M79.672-Pain in left foot-ICD-10; left foot 4th interspace infection COMPARISON: None. EXAM/TECHNIQUE: FOOT 3 OR MORE VIEWS ??04/19/2018 10:10 AM . Left foot 3 weightbearing views. FINDINGS / IMPRESSION: Left foot: Soft tissue swelling is noted along the 4th and 5th toes and distal aspects of the 4th and 5th metatarsals. Please correlate. No acute fracture or osseous erosive degenerative changes are visualized in the region. Mostly mild degenerative changes are scattered throughout the foot and toes. There is small plantar and posterior calcaneal enthesopathic spur formation. Procedure Note Liu Kohli MD - 04/19/2018 HISTORY: M79.672-Pain in left foot-ICD-10; left foot 4th interspace infection COMPARISON: None. EXAM/TECHNIQUE: FOOT 3 OR MORE VIEWS 04/19/2018 10:10 AM . Left foot 3 weightbearing views. FINDINGS / IMPRESSION: Left foot: Soft tissue swelling is noted along the 4th and 5th toes and distal aspects of the 4th and 5th metatarsals. Please correlate. No acute fracture or osseous erosive degenerative changes are visualized in the region. Mostly mild degenerative changes are scattered throughout the foot and toes. There is small plantar and posterior calcaneal enthesopathic spur formation. Danyell Nelson DPM IMG DIAGNOSTIC IMAGI NG ORDERABLES documented in this encounter Visit Diagnoses Diagnosis Left foot pain- Primary Pain in limb Screening for osteoporosis- Primary Special screening for osteoporosis Primary narcolepsy without cataplexy Chronic pain syndrome Chronic low back pain Lumbago Chronic use of opiate for therapeutic purpose Pain medication agreement Encounter for long-term (current) use of other medications Screen for colon cancer Special screening for malignant neoplasms, colon documented in this encounter Care Teams Drapery Cutter Relationship Specialty Start Date End Date Jean Munoz MD [address] [place] [phone] PCP - General 12/31/08 Manny Rizzo MD [address] [place] [phone] 04/20/10 documented as of this encounter
--- OUTSIDE RECORDS SUMMARY | 2024-06-10 07:18 | XMS_ITS | Encounter Summary ---
Author Organization [facility] Address [address] [place] [address] Care Team Providers Care Nuclear Supervising Operator Name Role Phone Jean Munoz MD Primary Care Provider Manny Rizzo MD Unavailable Reason for Visit * Reason Onset Date Comments Medications Refill 05/03/2018 Encounter Details Date Type Department Care Team (Late st Contact Info) Description 05/03/2018 Refill [facility] - [address] [id number] Tiana Bacon [address] [place] [phone] Medications Refill Social History Tobacco Use [...] by mouth in the morning. 60 Tab 05/04/2018 05/31/2018 methylphenidate HCl (RITALIN;METHYLIN) 10 mg tablet Take one tab in the afternoon for narcolepsy. 30 Tab 05/04/2018 05/31/2018 documented in this encounter Miscellaneous Notes * Telephone Encounter - Elizabeth Walsh - 05/04/2018 1532 EDT PT called regarding refill. Box Folding Machine Operator spoke with Corrina who will route refill to Dr Veloz in Dr Madden's absence. Pt would like Corrina to call her when refill has been ordered. * Telephone Encounter - Corrina Ac RN - 05/03/2018 0823 EDT Pt last seen by on 06/22/17. Refill requests for her methyphenidate prescriptions. Orders pended to for review and e-sig. * Telephone Encounter - Britney Tai - 05/03/2018 0816 EDT Medication Refill Medication(s) Requested: methylphenidate HCl (RITALIN;METHYLIN) 10 mg tablet and methylphenidate HCl (RITALIN;METHYLIN) 20 mg tablet Pharmacy (reconcile pharmacy list): [facility] [place] Is patient out of medication? No Britney Tai 05/03/20188:16 documented in this encounter Plan of Treatment Upcoming Encounters Date Type Department Care Team (Late st Contact Info) Description 06/29/2024 14:15 EDT Office Visit [facility] [address] [place] [address] Jean Munoz MD [address] [place] [phone] documented as of this encounter Visit Diagnoses Not on filedocumented in this encounter Discontinued Medications Medication Sig Discontinue Reason Start Date End Da te methylphenidate HCl (RITALIN;METHYLIN) 10 mg tablet Take one tab in the afternoon for narcolepsy. Reorder 04/06/2018 05/03/2018 methylphenidate HCl (RITALIN;METHYLIN) 20 mg tablet Take 2 tabs by mouth in the morning. Reorder 04/06/2018 05/03/2018 documented as of this encounter Care Teams Nuclear Supervising Operator Relationship Specialty Start Date End Date Jean Munoz MD [address] [place] [phone] PCP - General 12/31/08 Manny Rizoz MD [address] [place] [phone] 04/20/10 documented as of this encounter
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
--- OUTSIDE RECORDS SUMMARY | 2024-06-10 07:18 | XMS_ITS | Encounter Summary ---
Author Organization [facility] Address [address] [place] [address] Care Team Providers Care Senior Visual Designer Name Role Phone Jean Munoz MD Primary Care Provider Manny Rizzo MD Unavailable Reason for Visit * Reason Comments Other Encounter Details Date Type Department Care Team (Late st Contact Info) Description 05/13/2018 [facility] [address] [place] [address] Jean Munoz MD [address] [place] [phone] Other Social History Tobacco Use Types [...] End Da te SPIRIVA RESPIMAT 1.25 mcg/actuation inhalerIndications:Damascener majo obstructive pulmonary disease, unspecified COPD type ([facility]) inhale 2 inhalations (2.5 mcg) daily as directed 12 g 1 05/17/2018 11/09/2018 documented in this encounter Miscellaneous Notes * Telephone Encounter - Yadira Mccauley RN - 05/17/2018 1520 EDT Medication(s) Requested: spiriva 1.25 [facility] Pharmacy: [facility] Is patient out of medication? Unknown Last Refill Date: 08/19/17 Last Visit Date with Ordering Provider: 03/03/18 Next Non-Acute Visit Date Scheduled with Care Team: 05/26/18 Yadira Mccauley RN 05/17/2018 15:20 documented in this encounter Plan of Treatment Upcoming Encounters Date Type Department Care Team (Late st Contact Info) Description 06/29/2024 14:15 EDT Office Visit [facility] [address] [place] [address] Jean Munoz MD [address] [place] [phone] documented as of this encounter Visit Diagnoses Diagnosis Chronic obstructive pulmonary disease, unspecified COPD type ([facility] Primary Screening for osteoporosis- Primary Special screening [...] te tiotropium bromide (SPIRIVA RESPIMAT) 1.25 mcg/actuation inhalerIndications:Chr onic obstructive pulmonary disease, unspecified COPD type ([facility]) 2 inhalations (2.5mcg) daily as directed Reorder 08/19/2017 05/13/2018 documented as of this encounter Care Teams Senior Visual Designer Relationship Specialty Start Date End Date Jean Munoz MD [address] [place] [phone] PCP - General 12/31/08 Manny Rizzo MD [address] [place] [phone] 04/20/10 documented as of this encounter
--- OUTSIDE RECORDS SUMMARY | 2024-06-10 07:18 | XMS_ITS | Encounter Summary ---
Author Organization [facility] Address [address] [place] [address] Care Team Providers Care Furniture Delivery Driver Name Role Phone Jean Munoz MD Primary Care Provider Manny Rizzo MD Unavailable Afai Valle MD Unavailable Jesi Leong CONE PICKER Unavailable SaloJesi shanks CONE PICKER Unavailable Reason for Visit * Reason Onset Date Comments Medications Refill 05/31/2018 Encounter Details Date Type Department Care Team (Late st Contact Info) Description 05/31/2018 Refill [facility] Sleep Program - [address] [address] Tiana Bacon [address] [place] [address] Medications Refill Social History Tobacco [...] encounter Miscellaneous Notes * Telephone Encounter - Barbara Gimenez - 06/01/2018 0905 EDT PT called asking if script has been sent yet. Script is with Dr. Bacon and Sleep nurse will call PT when it's ready. * Telephone Encounter - Elizabeth Walsh - 05/31/2018 1548 EDT Medication Refill Medication(s) Requested: methylphenidate HCl (RITALIN;METHYLIN) 20 mg tablet Pharmacy (reconcile pharmacy list): [id number] [place], [place] Is patient out of medication? No Patient has FUR scheduled with Dr Bacon 11/09/2018. Patient would like to speak with Corrina. documented in this encounter Plan of Treatment Upcoming Encounters Date Type Department Care Team (Late st Contact Info) Description 06/29/2024 14:15 EDT Office Visit [facility] [address] [place] [address] Jean Munoz MD [address] [place] [phone] documented as of this encounter Visit Diagnoses Not on filedocumented in this encounter Additional Health Concerns Infection Onset Date Last Indicated Resolved Time R/O COVID-19 05/15/2022 05/15/2022 05/20/2022 22:1 6 EDT R/O COVID-19 11/14/2022 11/14/2022 11/14/2022 19:1 6 EST documented as of this encounter Care Teams Furniture Delivery Driver Relationship Specialty Start Date End Date Jean Munoz MD [address] [place] [phone] PCP - General 12/31/08 Manny Rizzo MD [address] [place] [phone] 04/20/10 Afia Valle MD [address] [place] [address] 2 [place] [phone] Care Team Radiation Oncology 07/02/21 Jesi Leong [facility] [address] [place] [phone] Compliance Consultant 12/24/21 09/20/22 Jesi Leong [facility] [address] [place] [phone] Behavioral Health Compliance ConsultantElectrician Rectifier Maintenance Care 10/19/22 01/23/24 documented as of this encounter
--- OUTSIDE RECORDS SUMMARY | 2024-06-10 07:18 | XMS_ITS | Encounter Summary ---
Author Organization [facility] Address [address] [place] [address] Care Team Providers Care Holistic Pulser Name Role Phone Jean Munoz MD Primary Care Provider Manny Rizzo MD Unavailable Afia Valle MD Unavailable Jesi Leong SCREEN ROLLER Unavailable SaloJesi shanks SCREEN ROLLER Unavailable Reason for Visit * Reason Onset Date Comments Medications Refill 03/08/2018 Encounter Details Date Type Department Care Team (Late st Contact Info) Description 03/08/2018 Refill [facility] Sleep Program - [address] [address] Tiana Bacon [address] [place] [address] Medications Refill Social History Tobacco [...] by mouth in the morning. 60 Tab 03/08/2018 04/06/2018 methylphenidate HCl (RITALIN;METHYLIN) 10 mg tablet Take one tab in the afternoon for narcolepsy. 30 Tab 03/08/2018 04/06/2018 documented in this encounter Miscellaneous Notes * Telephone Encounter - Barbara Gimenez - 03/08/2018 0816 EDT Medication Refill Medication(s) Requested: Ritalin 20mg and Ritalin 10mg Pharmacy (reconcile pharmacy list): [facility] Is patient out of medication? No Picking up/mailing (location)/calling in/eprescribe? Eprescribe 30 day supply/90 day supply? 30 Barbara Gimenez 03/08/20188:16 documented in this encounter Plan of Treatment Upcoming Encounters Date Type Department Care Team (Late st Contact Info) Description 06/29/2024 14:15 EDT Office Visit [facility] [address] [place] [address] Jean Munoz MD [address] [place] [address] documented as of this encounter Visit Diagnoses Not on filedocumented in this encounter Discontinued Medications Medication Sig Discontinue Reason Start Date End Da te methylphenidate HCl (RITALIN;METHYLIN) 10 mg tablet Take one tab in the afternoon for narcolepsy. Reorder 02/08/2018 03/08/2018 methylphenidate HCl (RITALIN;METHYLIN) 20 mg tablet Take 2 tabs by mouth in the morning. Reorder 02/08/2018 03/08/2018 documented as of this encounter Additional Health Concerns Infection Onset Date Last Indicated Resolved Time R/O COVID-19 05/15/2022 05/15/2022 05/20/2022 22:1 6 EDT R/O COVID-19 11/14/2022 11/14/2022 11/14/2022 19:1 6 EST documented as of this encounter Care Teams Holistic Pulser Relationship Specialty Start Date End Date Jean Munoz MD [address] [place] [phone] PCP - General 12/31/08 Manny Rizzo MD [address] [place] [address] 04/20/10 Afia Valle MD [address] [place] [address] [address] [place] [phone] Care Team Radiation Oncology 07/02/21 Jesi Leong [facility] [address] [place] [phone] Resin Coater 12/24/21 09/20/22 Jesi Leong SCREEN ROLLER [address] [place] [phone] Behavioral Health Resin CoaterCement Truck Driver Care 10/19/22 01/23/24 documented as of this encounter
--- OUTSIDE RECORDS SUMMARY | 2024-06-10 07:18 | XMS_ITS | Encounter Summary ---
Author Organization [facility] Address [address] [place] [address] Care Team Providers Care Camera Repair Technician Name Role Phone Jean Munoz MD Primary Care Provider Manny Rizzo MD Unavailable Reason for Visit * Reason Onset Date Comments Medications Refill 04/04/2018 Encounter Details Date Type Department Care Team (Late st Contact Info) Description 04/04/2018 Refill [facility] [address] [place], [place] [phone] Jean Munoz MD [address] [place] [phone] [...] for nausea 30 Tab 3 04/04/2018 02/15/2019 documented in this encounter Miscellaneous Notes * Telephone Encounter - Rukhsana Molina - 04/04/2018 1129 EDT Medication(s) Requested: farhat [facility]acy[facility] Is patient out of medication? Unknown Last Refill Date: 06/01/17 Last Visit Date with Ordering Provider: 03/03/18 Next Non-Acute Visit Date Scheduled with Care Team: Yes. 05/26 Rukhsana Molina 04/04/2018 11:30 documented in this encounter Plan of Treatment Upcoming Encounters Date Type Department Care Team (Late st Contact Info) Description 06/29/2024 14:15 EDT Office Visit [facility] Medicine [facility] [address] [place] [address] Jean Munoz MD [address] [place] [phone] documented as of this encounter [...] BY MOUTH DAILY NEEDED for nausea Reorder 06/01/2017 04/04/2018 documented as of this encounter Care Teams Camera Repair Technician Relationship Specialty Start Date End Date Jean Munoz MD [address] [place] [phone] PCP - General 12/31/08 Manny Rizzo MD [address] [place] [phone] 04/20/10 documented as of this encounter
--- OUTSIDE RECORDS SUMMARY | 2024-06-10 07:18 | XMS_ITS | Encounter Summary ---
Author Organization [facility] Address [address] [place] [address] Care Team Providers Care Infant Lead Teacher Name Role Phone Jean Munoz MD Primary Care Provider Manny Rizzo MD Unavailable Reason for Visit * Reason Comments Other Encounter Details Date Type Department Care Team (Late st Contact Info) Description 04/05/2018 [facility] Pulmonology & Critical Care - [facility] [address] [place], [place] [phone] Neha Murcia MD [address] [place] [address], [address] [place] [address] Other Social History Tobacco Use [...] Dispensed Refills Start Date End Da te ADVAIR HFA 115-21 mcg/actuation inhalerIndications:Modera te persistent asthma, unspecified whether complicated INHALE ONE PUFF BY MOUTH TWICE DAILY as directed 12 g 10 04/06/2018 05/26/2019 documented in this encounter Miscellaneous Notes * Telephone Encounter - Moncho Wu RN - 04/06/2018 1658 EDT Requested Prescriptions Signed Prescriptions Disp Refills ??? ADVAIR HFA 115-21 mcg/actuation inhaler 12 g 10 Sig: INHALE ONE PUFF BY MOUTH TWICE DAILY as directed Authorizing Provider: NEHA MURCIA Ordering User: MONCHO WU documented in this encounter Plan of Treatment Upcoming Encounters Date Type Department Care Team (Late st Contact Info) Description 06/29/2024 14:15 EDT Office Visit [facility] [address] [place] [address] Jean Munoz MD [address] [place] [phone] documented as of this encounter [...] Discontinue Reason Start Date End Da te fluticasone-salmeterol (ADVAIR HFA) 115-21 mcg/actuation inhaler Inhale 1 Puff as directed 2 times daily. Reorder 03/03/2017 04/05/2018 documented as of this encounter Care Teams Infant Lead Teacher Relationship Specialty Start Date End Date Jean Munoz MD [address] [place] [phone] PCP - General 12/31/08 Manny Rizzo MD [address] [place] [phone] 04/20/10 documented as of this encounter
--- OUTSIDE RECORDS SUMMARY | 2024-06-10 07:18 | XMS_ITS | Encounter Summary ---
Author Organization [facility] Address [address] [place] [address] Care Team Providers Care Digital Media Planner Name Role Phone Jean Munoz MD Primary Care Provider Manny Rizzo MD Unavailable Reason for Visit * Reason Comments Follow-up left foot Encounter Details Date Type Department Care Team (Late st Contact Info) Description 04/27/2018 11:00 EDT Office Visit [facility] Foot [facility] Ankle Program - [address] [phone] Danyell Nelson, [address] [phone] Ulcer of foot, left, limited to breakdown of skin (HCC-CMS) (Primary Dx) Social History Tobacco Use [...] - Inhaled Oxygen Concentration - - Weight 88.5 kg (195 lb) 04/27/2018 1119 EDT Height 162.6 cm (5' 4.02) 04/27/2018 1119 EDT Body Mass Index 33.45 04/27/2018 1119 EDT documented in this encounter Functional Status [...] Dispensed Refills Start Date End Da te Clindamycin Phosphate (CLINDACIN P) 1 % swab Apply to left 4th interspace daily as instructed 1 Each 04/27/2018 08/30/2019 documented in this encounter Progress Notes * Danyell Nelson, DPM - 04/27/2018 1100 EDT Liset Viera is a very pleasant 57 y.o. female patient who presents for follow up left fourth interspace bulla, abscess. She reports that she has been doing very well. Pain in the foot has resolved. Redness and swelling has resolved. She can now put weight on the foot and has been walking in shoes. She finished antibiotics yesterday. She has been applying a dressing to the foot as instructed. The blister on the top has dried out, however she notes she still has some wetness in between the toes. Overall she is feeling well today and denies any nausea, vomiting, fever, chills. Patient Active Problem List Diagnosis Date Noted ??? Infected blister of toe of left foot, initial encounter 04/18/2018 Priority: Medium ??? Foot pain, right 11/27/2017 Priority: Medium ??? Ankle arthritis 10/11/2017 Priority: Medium ??? Posterior tibial tendon dysfunction, right 10/11/2017 Priority: Medium ??? Chronic use of opiate for therapeutic purpose 09/22/2017 Priority: Medium ??? Posterior tibial tendonitis, right 07/27/2017 Priority: Medium ??? Traumatic arthritis of right ankle 07/27/2017 Priority: Medium ??? KATJA (obstructive sleep apnea) 04/18/2017 Priority: Medium ??? Steroid-induced hyperglycemia 01/04/2017 Priority: Medium ??? Nausea 04/13/2016 Priority: Medium ??? Degeneration of lumbar or lumbosacral intervertebral disc 10/14/2012 Priority: Medium Class: Permanent ??? Fibromyalgia 03/01/2015 ??? Other disorders of eyelid 10/24/2013 ??? Blurry vision, bilateral 10/17/2013 ??? Pyogenic granuloma of eyelid 10/17/2013 ??? Panlobular emphysema ([facility]) 03/02/2013 Class: Permanent ??? Wears eyeglasses ??? Chronic fatigue Class: Temporary ??? Dizziness 01/23/2013 Class: Temporary ??? Hesitancy 01/11/2013 Class: Temporary ??? Complications due to internal orthopedic device, implant, and graft ([facility]) 07/04/2012 Class: Temporary ??? Varicose veins 06/02/2012 ??? Left knee pain 03/31/2012 Class: Temporary ??? Rosacea 10/13/2011 ??? Menopausal flushing 08/10/2011 Class: Temporary ??? Irritable bowel syndrome (IBS) 08/10/2011 Class: Permanent ??? Lumbar radicular syndrome 04/20/2011 Class: Temporary ??? Tear film insufficiency 01/21/2011 ??? Vitreous syneresis 11/26/2010 ??? Diplopia 11/26/2010 ??? Blepharitis of both eyes 11/26/2010 ??? Senile nuclear sclerosis 11/26/2010 ??? Severe major depression without psychotic features ([facility]) 01/22/2010 Class: Permanent ??? Chronic pain syndrome 01/22/2010 Class: Permanent ??? Anxiety 12/26/2009 Class: Permanent ??? Degeneration of cervical intervertebral disc 11/06/2009 Class: Permanent ??? Chronic knee pain 04/18/2009 Class: Permanent ??? Narcolepsy 01/10/2009 Class: Permanent ??? Cervical spondylosis 08/02/2008 Class: Permanent ??? Insomnia 07/31/2008 Class: Permanent ??? Fatty liver 07/23/2008 Class: Permanent ??? Restless legs syndrome 02/06/2007 Class: Permanent ??? History of peptic ulcer 01/06/2006 Class: Permanent ??? Migraine 12/04/2005 Class: Permanent ??? Impaired glucose tolerance 03/23/2005 Class: Permanent ??? Chronic back pain 11/25/2004 Class: Permanent ??? Obesity 11/25/2004 Class: Permanent ??? Cervicalgia 11/25/2004 Class: Permanent ??? Gastroesophageal reflux disease 10/03/2004 Class: Permanent ??? Hip pain 01/11/2004 Class: Temporary ??? Tobacco dependence in remission 04/01/2000 Class: Permanent ??? Seasonal allergic rhinitis 12/11/1999 Class: Permanent Past Medical History: Diagnosis Date ??? Abdominal [...] ??? ANKLE FRACTURE SURGERY 04/01/10 left ankle [facility] ??? CERVICAL SPINE SURGERY 12/31/08 discectomy, fusion C4-7 Dr Dewitt ??? COLONOSCOPY 07/29/09 repeat 10 years ??? CYST INCISION AND DRAINAGE 09/17/10 left cheek ??? CYSTOSCOPY 02/14/13 ??? FINE NEEDLE ASPIRATION 09/19/10 left cheek ??? GASTRIC BYPASS SURGERY ??? GASTRIC FUNDOPLICATION 03/02/07 [place] ??? HYSTERECTOMY, VAGINAL menorrhagia ??? SALPINGECTOMY 1982 ectopic ??? SHOULDER ARTHROSCOPY 10/15 left, with acromioplasty Social History Substance Use Topics ??? Smoking [...] Neg Hx ??? Blindness Neg Hx Current Outpatient Prescriptions Medication Sig Dispense Refill [...] 3 ??? promethazine (PHENERGAN) 12.5 mg tablet TAKE ONE TABLET BY MOUTH EVERY SIX HOURS NEEDED FOR NAUSEA 30 Tab 1 ??? rOPINIRole (REQUIP) 2 mg tablet TAKE [...] Daily Max: 5 mg 30 Tab 2 No current facility-administered medications for this visit. Allergies Allergen Reactions ??? Toradol [Ketorolac Tromethamine] Hives ??? Motrin [Ibuprofen] Itching Review of Systems A ten point review of systems was performed. Pertinent positives are listed below, all others are negative. Vital signs: height is 162.6 cm (64.02) and weight is 88.5 kg (195 lb). PHYSICAL EXAM: General: AO x 3, NAD Lower extremity: Palpable pedal pulses. Skin temperature gradient WNL. CFT < 3 sec to all toes. Maceration 4th interspace. No pain on palpation. No fluid expressed. No malodor. Erythema and edema to the forefoot resolved. Dry blister dorsally. MMT 5/5. Gross protective sensation intact. ASSESSMENT: 1. Ulcer of foot, left, limited to breakdown of skin (HCC-CMS) No orders of the defined types were placed in this encounter. PLAN: Ms. Viera presents today for follow-up left fourth interspace below, abscess. She is doing much better. Erythema and edema to the foot have resolved. Pain has resolved. The blister has dried out. She does still have some maceration in the interspace despite use of the Betadine here. We discussedthat sometimes bacterial infections versus fungal infections can cause this. I am going to have hertry an antibiotic gel-clindamycin. This was ordered and sent to her pharmacy. If she does not have any improvement within the next week with this, we could try an antifungal cream. She is going to call if she does not see any improvement within the next week. Otherwise, I will going to see her backin 2 weeks. She knows to call before then if any problems arise and is happy with this plan. Portions of this document have been prepared with speech recognition software or keyboard data base administrator techniques. Minor irregularities or keyboarding misprints may be present documented in this encounter Plan of Treatment Upcoming Encounters Date Type Department Care Team (Late st Contact Info) Description 06/29/2024 14:15 EDT Office Visit [facility] [address] [place] [address] Jean Munoz MD [address] [place] [address] documented as of this encounter Visit Diagnoses Diagnosis Ulcer of foot, left, limited to breakdown of skin ([facility])- Primary Screening for osteoporosis- Primary Special screening for osteoporosis Primary narcolepsy without cataplexy Chronic pain syndrome Chronic low back pain Lumbago Chronic use of opiate for therapeutic purpose Pain medication agreement Encounter for long-term (current) use of other medications Screen for colon cancer Special screening for malignant neoplasms, colon documented in this encounter Care Teams Digital Media Planner Relationship Specialty Start Date End Date Jean Munoz MD [address] [place] [phone] PCP - General 12/31/08 Manny Rizzo MD [address] [place] [phone] 04/20/10 documented as of this encounter
--- OUTSIDE RECORDS SUMMARY | 2024-06-10 07:18 | XMS_ITS | Encounter Summary ---
Author Organization [facility] Address [address] [place] [address] Care Team Providers Care Legal Service Specialist Name Role Phone Jean Munoz MD Primary Care Provider Manny Rizzo MD Unavailable Reason for Visit * Reason Onset Date Comments Prior Auth, Medication 06/13/2018 Xopenex i nhaler Encounter Details Date Type Department Care Team (Late st Contact Info) Description 06/13/[address] [address] Kaitlyn Montero LPN [address] [place] [address] Prior Auth, Medication (Xopenex inhaler ) Social History Tobacco Use Types Packs/Day [...] Telephone Encounter - Kaitlyn Montero LPN - 06/14/2018 0826 EDT Medication: Xopenex inhaler Insurance Co: [place] Medicaid Approval # (if applicable): [id number] Approval dates: 06/13/2018-06/13/2019 Name of Pharmacy notified: [facility] * Telephone Encounter - Kaitlyn Montero LPN - 06/13/2018 1104 EDT [place] sent to insurance ([place] Medicaid) for Xopenex inhaler. Waiting for response. .Kaitlyn Montero LPN documented in this encounter Plan of Treatment Upcoming Encounters Date Type Department Care Team (Late st Contact Info) Description 06/29/2024 14:15 EDT [facility] [address] [place] [address] Jean Munoz MD [address] [place] [phone] documented as of this encounter Visit Diagnoses Not on filedocumented in this encounter Care Teams Legal Service Specialist Relationship Specialty Start Date End Date Jean Munoz MD [address] [place] [phone] PCP - General 12/31/08 Manny Rizzo MD [facility] [place] [address] 04/20/10 documented as of this encounter
--- OUTSIDE RECORDS SUMMARY | 2024-06-10 07:18 | XMS_ITS | Encounter Summary ---
Author Organization [facility] Address [address] [place] [address] Care Team Providers Care Lining Baster Name Role Phone Jean Munoz MD Primary Care Provider Manny Rizzo MD Unavailable Reason for Visit * Reason Comments Chronic Pain Encounter Details Date Type Department Care Team (Late st Contact Info) Description 05/26/2018 13:00 EDT Office Visit [facility] [address] [place] [address] Jean Munoz MD [address] [place] [phone] Chronic pain syndrome (Primary Dx); Chronic use of opiate for therapeutic purpose; Migraine without status migrainosus, not intractable, unspecified migraine type; Moderate persistent asthma without complication; Gastroesophageal reflux disease, esophagitis presence not specified; Restless legs syndrome; Major depressive disorder, recurrent, severe without psychotic features ([facility]); Insomnia, unspecified type; Hesitancy; Tobacco dependence in remission; Encounter for screening for lung cancer; Need for shingles vaccine Social History Tobacco Use Types Packs/Day Years [...] Sign Reading Time Taken Comments Blood Pressure 128/76 05/26/2018 1307 EDT Pulse 72 05/26/2018 1307 EDT Temperature 36.9 ??C (98.4 ??F) 05/26/2018 1307 EDT Respiratory Rate 15 05/26/2018 1307 EDT Oxygen Saturation - - Inhaled Oxygen Concentration - - Weight 90.7 kg (200 lb) 05/26/2018 1307 EDT Height 162.6 cm (5' 4) 05/26/2018 1307 EDT Body Mass Index 34.33 05/26/2018 1307 EDT [...] for Nausea. 30 Tab 1 05/26/2018 07/22/2018 zolpidem (AMBIEN) 5 mg tabletIndications:Insomni a, unspecified type Take 1 Tab by mouth at bedtime as needed for Sleep. Daily Max: 5 mg 30 Tab 2 05/26/2018 08/18/2018 traMADol (ULTRAM) 50 mg tabletIndications:Chronic pain syndrome,Chronic use of opiate for therapeutic purpose Take 1 Tab by mouth every 6 hours as needed for Pain. Daily Max: 200 mg 60 Tab 05/26/2018 08/18/2018 levalbuterol (XOPENEX HFA) 45 mcg/actuation inhalerIndications:Modera te persistent asthma without complication INHALE TWO PUFFS BY MOUTH EVERY SIX HOURS NEEDED 45 g 5 05/26/2018 08/30/2019 tamsulosin (FLOMAX) 0.4 mg capsuleIndications:Hesita ncy Take 1 Cap by mouth daily. 90 Cap 3 05/26/2018 08/30/2019 sertraline (ZOLOFT) 100 mg tabletIndications:Major depressive disorder, recurrent, severe without psychotic features ([facility]) TAKE TWO TABLETS BY MOUTH DAILY 180 Tab 3 05/26/2018 08/30/2019 rOPINIRole (REQUIP) 2 mg tabletIndications:Restles s legs syndrome TAKE 1 TABLET BY MOUTH NIGHTLY AT BEDTIME 90 Tab 3 05/26/2018 07/21/2019 omeprazole (PRILOSEC) 40 mg capsuleIndications:Gastro esophageal reflux disease, esophagitis presence not specified Take 1 Cap by mouth daily. 90 Cap 3 05/26/2018 08/30/2019 montelukast (SINGULAIR) 10 mg tabletIndications:Moderat e persistent asthma without complication Take 1 Tab by mouth daily. 90 Tab 3 05/26/2018 07/27/2019 HYDROcodone-acetaminophen (NORCO) 5-325 mg tabletIndications:Chronic pain syndrome,Chronic use of opiate for therapeutic purpose Take 1-2 Tabs by mouth every 6 hours as needed for up to 28 days for Pain. Daily Max: 8 Tabs 112 Tab 05/31/2018 08/18/2018 HYDROcodone-acetaminophen (NORCO) 5-325 mg tabletIndications:Chronic pain syndrome,Chronic use of opiate for therapeutic purpose Take 1-2 Tabs by mouth every 6 hours as needed for up to 28 days for Pain. Daily Max: 8 Tabs 112 Tab 06/28/2018 08/18/2018 HYDROcodone-acetaminophen (NORCO) 5-325 mg tabletIndications:Chronic pain syndrome,Chronic use of opiate for therapeutic purpose Take 1-2 Tabs by mouth every 6 hours as needed for up to 28 days for Pain. Daily Max: 8 Tabs 112 Tab 07/26/2018 08/18/2018 fexofenadine (JUDITH) 180 mg tablet Take 1 Tab by mouth daily. 90 Tab 3 07/14/2018 12/12/2018 amLODIPine (NORVASC) 5 mg tabletIndications:Migrain e without status migrainosus, not intractable, unspecified migraine type Take 1 Tab by mouth daily. 90 Tab 3 05/26/2018 06/18/2019 documented in this encounter Progress Notes * Jean Munoz MD - 05/26/2018 1300 EDT Subjective: Patient ID: Liset Viera is an 57 y.o. female. Chief Complaint Patient presents with ??? Chronic Pain HPI Liset is a 57 year old female here for follow up Chronic pain/back pain/fibromyalgia Will be going to a wedding later today Pain stable Foot pain, had blister left foot 5th toe Is taking Hydromorphone 4/day Also taking Tramadol Active problem list, past medical history, past [...] UTI 11/20/99 ??? Vaginitis 03/03/00 Current Outpatient Prescriptions on File Prior to Visit Medication Sig Dispense Refill ??? ADVAIR HFA 115-21 mcg/actuation inhaler INHALE ONE PUFF BY MOUTH TWICE DAILY as directed 12 g 10 ??? blood glucose (BLOOD GLUCOSE TEST) test [...] MOUTH EVERY DAY 90 Cap 4 ??? hydroxypropyl methylcellulose (ISOPTO TEARS) 0.5 % [...] MOUTH TWICE DAILY 60 Cap 5 ??? ondansetron (ZOFRAN) 4 mg tablet TAKE ONE TABLET BY MOUTH DAILY NEEDED for nausea 30 Tab 3 ??? SPIRIVA RESPIMAT 1.25 mcg/actuation inhaler inhale 2 inhalations (2.5 mcg) daily as directed 12g 1 ??? sumatriptan (IMITREX) 50 mg tablet take 1 tablet by mouth as needed for migraine *daily limit 2tablets 9 Tab 4 No current facility-administered medications on file prior to visit. Allergies Allergen Reactions ??? Toradol [Ketorolac Tromethamine] Hives ??? Motrin [Ibuprofen] Itching Social Social History Substance Use Topics ??? Smoking status: Former Smoker Packs/day: 1.50 Years: 37.00 Types: Cigarettes Start date: 09/13/1975 Quit date: 09/13/2012 ??? Smokeless tobacco: Never Used ??? Alcohol use No Comment: rarely ROS - See HPI Objective: BP 128/76 (BP Cuff Location: Left arm) Pulse 72 Temp 36.9 ??C (98.4 ??F) (Tympanic) Resp 15 Ht 162.6 cm (64) Wt 90.7 kg (200 lb) LMP 01/11/1987 BMI 34.33 kg/m2 Physical Exam deferred Assessment: See below Plan: Liset was seen [...] needed for Pain. Daily Max: 200 mg We discussed usual goal for chronic pain is avoid multiple short acting opiates For now encouraged use tramadol for mild pain and hydrocodone for more severe pain (although she isalready using hydrocodone 8/day) Migraine without status migrainosus, not intractable, unspecified migraine type - amLODIPine (NORVASC) 5 mg tablet; Take 1 Tab by mouth daily. Moderate persistent asthma without complication - montelukast (SINGULAIR) 10 mg tablet; Take 1 Tab by mouth daily. - levalbuterol (XOPENEX HFA) 45 mcg/actuation inhaler; INHALE TWO PUFFS BY MOUTH EVERY SIX HOURS ASNEEDED Gastroesophageal reflux disease, esophagitis presence not specified - omeprazole (PRILOSEC) 40 mg capsule; Take 1 Cap by mouth daily. Restless legs syndrome - rOPINIRole (REQUIP) 2 mg tablet; TAKE 1 TABLET BY MOUTH NIGHTLY AT BEDTIME Major depressive disorder, recurrent, severe without psychotic features ([facility]) - sertraline (ZOLOFT) 100 mg tablet; TAKE TWO TABLETS BY MOUTH DAILY Insomnia, unspecified type - zolpidem (AMBIEN) 5 mg tablet; Take 1 Tab by mouth at bedtime as needed for Sleep. Daily Max: 5 mg Hesitancy - tamsulosin (FLOMAX) 0.4 mg capsule; Take 1 Cap by mouth daily. Tobacco dependence in remission Encounter for screening for lung cancer - CT LOW DOSE LUNG CANCER ANNUAL SCREENING WO CONTRAST Need for shingles vaccine Discussed recommendation for Shingrix vaccine she will consider, will defer for now Patient Education Topic: as above Method: Verbal Taught to: Patient Barriers: None Outcomes: Verbalized understanding I spent a total of 25 minutes of face to face time with the patient today, and 25 minutes was spentcounseling the patient on the above issues. A VPMS([place] Prescription Monitoring System) report on this patient was printed and reviewed today to ensure the prescribing and dispensing of their medications is in accordance with the treatment plan. Last Rx methylphenidate filled 05/04, hydrocodone filled 05/03, tramadol filled 05/02. Lyrica filled 04/29, zolpidem filled 04/27/18 Return in about 3 months (around 08/23/2018) for SERA. documented in this encounter Plan of Treatment Upcoming Encounters Date Type Department Care Team (Late st Contact Info) Description 06/29/2024 14:15 EDT Office Visit [address] [address] Jean uMnoz MD [address] [place] [phone] documented as of this encounter Visit Diagnoses Diagnosis Chronic pain syndrome- Primary Chronic use of opiate for therapeutic purpose Migraine without status migrainosus, not intractable, unspecified migraine type Moderate persistent asthma without complication Unspecified asthma Gastroesophageal reflux disease, esophagitis presence not specified Restless legs syndrome Restless legs syndrome (RLS) Major depressive disorder, recurrent, severe without psychotic features ([facility]CC- [facility]) Major depressive disorder, recurrent episode, severe, without mention of psychotic behavior Insomnia, unspecified type Hesitancy Urinary hesitancy Tobacco dependence in remission Personal history of tobacco use, presenting hazards to health Encounter for screening for lung cancer Need for shingles vaccine Need for prophylactic vaccination and inoculation against other viral diseases Screening for osteoporosis- Primary Special screening for [...] Take 1 Tab by mouth daily. Reorder 06/01/2017 05/26/2018 fexofenadine (JUDITH) 180 mg tablet Take 1 Tab by mouth daily. Reorder 07/16/2017 05/26/2018 HYDROcodone-acetaminophen (NORCO) 5-325 mg tabletIndications:Chronic pain syndrome,Chronic use of opiate for therapeutic purpose Take 1-2 Tabs by mouth every 6 hours as needed for up to 28 days for Pain. Daily Max: 8 Tabs Reorder 05/03/2018 05/26/2018 HYDROcodone-acetaminophen (NORCO) 5-325 mg tabletIndications:Chronic pain syndrome,Chronic use of opiate for therapeutic purpose Take 1-2 Tabs by mouth every 6 hours as needed for up to 28 days for Pain. Daily Max: 8 Tabs Reorder 04/05/2018 05/26/2018 HYDROcodone-acetaminophen (NORCO) 5-325 mg tabletIndications:Chronic pain syndrome,Chronic use of opiate for therapeutic purpose Take 1-2 Tabs by mouth every 6 hours as needed for up to 28 days for Pain. Daily Max: 8 Tabs Reorder 03/08/2018 05/26/2018 montelukast (SINGULAIR) 10 mg tabletIndications:Moderat e persistent asthma without complication TAKE 1 TABLET BY MOUTH EVERY DAY Reorder 05/24/2017 05/26/2018 omeprazole (PRILOSEC) 40 mg capsuleIndications:Gastro esophageal reflux disease, esophagitis presence not specified Take 1 Cap by mouth daily. Reorder 06/01/2017 05/26/2018 rOPINIRole (REQUIP) 2 mg tabletIndications:Restles s legs syndrome TAKE 1 TABLET BY MOUTH NIGHTLY AT BEDTIME Reorder 05/24/2017 05/26/2018 sertraline (ZOLOFT) 100 mg tabletIndications:Major depressive disorder, recurrent, severe without psychotic features ([facility]) TAKE TWO TABLETS BY MOUTH DAILY Reorder 05/24/2017 05/26/2018 tamsulosin (FLOMAX) 0.4 mg capsuleIndications:Hesita ncy Take 1 Cap by mouth daily. Reorder 06/01/2017 05/26/2018 XOPENEX HFA 45 mcg/actuation inhalerIndications:Modera te persistent asthma without complication INHALE TWO PUFFS BY MOUTH EVERY SIX HOURS NEEDED Reorder 05/24/2017 05/26/2018 traMADol (ULTRAM) 50 mg tabletIndications:Chronic pain syndrome,Chronic use of opiate for therapeutic purpose TAKE ONE TABLET BY MOUTH EVERY SIX HOURS NEEDED FOR PAIN: daily max: 4 tabs (200mg) Reorder 03/03/2018 05/26/2018 zolpidem (AMBIEN) 5 mg tabletIndications:Insomni a, unspecified type Take 1 Tab by mouth at bedtime as needed for Sleep. Daily Max: 5 mg Reorder 05/01/2018 05/26/2018 promethazine (PHENERGAN) 12.5 mg tablet TAKE ONE TABLET BY MOUTH EVERY SIX HOURS NEEDED FOR NAUSEA Reorder 04/27/2018 05/26/2018 documented as of this encounter Care Teams Lining Baster Relationship Specialty Start Date End Date Jean Munoz MD [address] [place] [phone] PCP - General 12/31/08 Manny Rizzo MD [address] [place] [phone] 04/20/10 documented as of this encounter
--- OUTSIDE RECORDS SUMMARY | 2024-06-10 07:18 | XMS_ITS | Encounter Summary ---
Author Organization [facility] Address [address] [place] [address] Care Team Providers Care Immigration Associate Name Role Phone Jean Munoz MD Primary Care Provider Manny Rizzo MD Unavailable Reason for Visit * Reason Comments Foot Pain left Encounter Details Date Type Department Care Team (Late st Contact Info) Description 05/10/2018 13:00 EDT Office Visit [facility] - [address] [address] Danyell Nelson, DP [address] [place] [phone] Ulcer of left foot, limited to breakdown of skin ([facility]) (Primary Dx) Social History Tobacco Use Types [...] Yes 04/27/2018 documented as of this encounter Progress Notes * Danyell Nelson, DPM - 05/10/2018 1300 EDT Liset Viera is a very pleasant 57 y.o. female patient who presents for follow up left fourth interspace ulcer, abscess. She reports that she has been doing very well. She has responded well to the clindamycin topical. She no longer has any pain in the foot. She believes the ulcer is nearly healed. She has not noticed any redness or swelling. She has not noticed any pain. Overall she is feeling well today and [...] granuloma of eyelid 10/17/2013 ??? Panlobular emphysema ([facility]) 03/02/2013 Class: Permanent ??? Wears eyeglasses ??? Chronic fatigue Class: Temporary ??? Dizziness 01/23/2013 Class: Temporary ??? Hesitancy 01/11/2013 Class: Temporary ??? Complications due to internal orthopedic device, implant, and graft ([facility]) 07/04/2012 Class: Temporary ??? Varicose veins 06/02/2012 [...] ??? Severe major depression without psychotic features ([facility]) 01/22/2010 Class: Permanent ??? Chronic pain syndrome [...] Right knee pain 04/19/09 Ortho consult E [place], MRI ? Mensicus tear, recommend PT ??? Shoulder pain 01/11/01 ??? Sinusitis 10/10/01 ??? URI (upper respiratory infection) 08/04/00 ??? Urinary frequency 12/11/03 ??? Urinary retention 06/28/08 ??? UTI 11/20/99 ??? Vaginitis 03/03/00 Past Surgical History: Procedure Laterality Date ??? ANKLE FRACTURE SURGERY 04/01/10 left ankle [facility] ??? CERVICAL SPINE SURGERY 12/31/08 discectomy, [...] by mouth daily. 90 Tab 3 ??? HYDROcodone-acetaminophen (NORCO) 5-325 mg tablet Take [...] SIX HOURS NEEDED 45 g 5 ??? zolpidem (AMBIEN) 5 mg tablet Take [...] below, all others are negative. Vital signs: vitals were not taken for this visit. PHYSICAL EXAM: General: AO x 3, NAD Lower extremity:??Palpable pedal pulses. Skin temperature gradient WNL. CFT <??3 sec to all toes. Maceration 4th interspace- resolved. No pain on palpation. No fluid expressed. No malodor. Erythema and edema to the forefoot resolved. Dry blister dorsally- healed. MMT 5/5. Gross protective sensation intact. ASSESSMENT: 1. Ulcer of left foot, limited to breakdown of skin ([facility]) No orders of the defined types were placed in this encounter. PLAN: Ms. Viera presents today for follow-up left fourth interspace ulcer, abscess. Infection has resolved. Maceration to the interspace has significantly improved. She still has one very small area of maceration and opening here. She is going to continue with the clindamycin lotion for 1 more week. At that point she can discontinue the use. We discussed importance of drying in between the toes wellbetween showers. We discussed importance of wearing clean dry socks daily. We discussed that this may recur. She is going to follow-up with me as needed at this point. She does call with any questions or concerns and is happy with this plan. Portions of this document have been prepared with speech recognition software or keyboard data sme techniques. Minor irregularities or keyboarding misprints may be present documented in this encounter Plan of Treatment Upcoming Encounters Date Type Department Care Team (Late st Contact Info) Description 06/29/2024 14:15 EDT Office Visit [facility] [address] [place], [place] [id number] Jean Munoz MD [address] [place] [phone] documented as of this encounter Visit Diagnoses Diagnosis Ulcer of left foot, limited to breakdown of skin ([facility])- Primary Screening for osteoporosis- Primary Special screening for osteoporosis Primary narcolepsy without cataplexy Chronic pain syndrome Chronic low back pain Lumbago Chronic use of opiate for therapeutic purpose Pain medication agreement Encounter for long-term (current) use of other medications Screen for colon cancer Special screening for malignant neoplasms, colon documented in this encounter Care Teams Immigration Associate Relationship Specialty Start Date End Date Jean Munoz MD [address] [place] [phone] PCP - General 12/31/08 Manny Rizzo MD [address] [place] [phone] 04/20/10 documented as of this encounter
--- OUTSIDE RECORDS SUMMARY | 2024-06-10 07:18 | XMS_ITS | Encounter Summary ---
Author Organization [facility] Address [address] [place] [address] Care Team Providers Care Occupational Health And Safety Manager Name Role Phone Jean Munoz MD Primary Care Provider Manny Rizzo MD Unavailable Reason for Referral * Consult (3 - 10 Business Days) - Specialty Report Received Specialty Diagnoses / Procedures Referred By Alex weldon Referred To Contact Orthopedic Surgery Diagnoses Cellulitis of left foot Blister of toe, left, initial encounter Sukhwinder Nix PA-C [address] [facility] [address] [place] [address] [facility] [address] [place] [address] Referral ID Status Reason Start Date Expiration Date Visits Requested Visits Authorized [id number] Specialty Report Received Specialty Services Required 04/18/2018 1 1 Question Answer Reason for Request: Left foot cellulitis, toe wound, may benefit from debridement. pt on keflex Reason for Visit * Reason Comments Blister pt has large blister on left baby toe, since wednesday, went to urgent care yesterday, given Keflex, now larger Encounter Details Date Type Department Care Team (Late st Contact Info) Description 04/18/2018 10:56 EDT - 04/18/2018 13:12 EDT Emergency [facility] Emergency Department - Main [address] [address] Sukhwinder Nix PA-C [address] [facility] [address] [place] [address] Emergency, MD Ismael Cellulitis of left foot (Primary Dx); Blister of toe, left, initial encounter Discharge Disposition: Home or Self Care Social [...] Sign Reading Time Taken Comments Blood Pressure 135/80 04/18/2018 1109 EDT Pulse 78 04/18/2018 1109 EDT Temperature 36.9 ??C (98.4 ??F) 04/18/2018 1109 EDT Respiratory Rate 16 04/18/2018 1109 EDT Oxygen Saturation 99% 04/18/2018 1109 EDT Inhaled Oxygen Concentration - - Weight 88.5 kg (195 lb) 04/18/2018 1109 EDT Height 162.6 cm (5' 4) 04/18/2018 1109 EDT Body Mass Index 33.47 04/18/2018 1109 EDT documented in this encounter Functional Status [...] 03/03/2018 documented as of this encounter Discharge Diagnoses Diagnosis L03.116 Cellulitis of left lower limb-L03.116[ICD-10-CM] S90.425A Blister (nonthermal), left lesser toe(s), initial encounter-S90.425A[ICD-10-CM] X58.XXXA Exposure to other specified factors, initial encounter-X58.XXXA[ICD-10-CM] Z79.899 Other intermediate accountant (current) drug therapy-Z79.899[ICD-10-CM] Z88.6 Allergy status to analgesic agent status-Z88.6[ICD-10-CM] Z87.891 Personal history of nicotine dependence-Z87.891[ICD-10-CM] Z98.84 Bariatric surgery status-Z98.84[ICD-10-CM] J43.9 Emphysema, unspecified-J43.9[ICD-10-CM] M19.90 Unspecified osteoarthritis, unspecified site-M19.90[ICD-10-CM] documented in this encounter Discharge Instructions * Discharge Instructions* Sukhwinder Nix PA - 04/18/2018 13:01 EDT Continue keflex 4 times daily. Keep leg elevated. Avoid walking on the foot. You do not need dressings but the toe may be more comfortable Shower as you normally would. No swimming Referral to podiatry was placed. They should call you tomorrow for follow up. If your toe and foot improve you may not require follow up. The blister will take at least 1-2 weeks to heal. Please return to the ER if not improved by Wednesday or if any fever documented in this encounter Medications at Time [...] times daily. 100 Each 1 01/14/2017 07/05/2018 cephALEXin (KEFLEX) 500 mg capsule Take 1 Cap by mouth 4 times daily for 5 days. 20 Cap 04/18/2018 04/23/2018 Ciclesonide 50 mcg spray,non-aerosolIndicat ions:Seasonal allergic rhinitis, unspecified trigger 1 spray each nostril daily 37.5 g 5 03/03/2018 08/04/2023 cycloSPORINE (RESTASIS) 0.05 % ophthalmic emulsion Place 1 Drop into both eyes 2 times daily 10/25/2014 11/11/2018 DALIRESP 500 mcg tabletIndications:Chroni c obstructive pulmonary disease, unspecified COPD type ([facility]) TAKE 1 TABLET BY MOUTH EVERY DAY [...] lancetsIndications:Impai red glucose tolerance Brand: One Touch Deldilitronics 100 Each 2 03/04/2017 11/10/2018 LYRICA 300 [...] depressive disorder, recurrent, severe without psychotic features ([facility]) TAKE TWO TABLETS BY MOUTH DAILY 180 [...] ic obstructive pulmonary disease, unspecified COPD type ([facility]) 2 inhalations (2.5mcg) daily as directed 12 [...] Dispensed Refills Start Date End Da te cephALEXin (KEFLEX) 500 mg capsule Take 1 Cap by mouth 4 times daily for 5 days. 20 Cap 04/18/2018 04/23/2018 documented in this encounter Discharge Disposition Disposition Code Departure Means Destination Comment s Home or Self Care PA discharged pt. No DC vitals obtained. documented in this encounter ED Notes * Sukhwinder Nix PA - 04/18/2018 1215 EDT DOS: 04/18/2018 Chief Complaint Patient presents with ??? Blister pt has large blister on left baby toe, since wednesday, went to urgent care yesterday, given Keflex,now larger HPI The patient is a 57 y.o. female who presents today with Blister (pt has large blister on left baby toe, since wednesday, went to urgent care yesterday, given Keflex, now larger) HPI 57 yo female with left 5th toe pain, blister, left foot and leg pain. She notes the blister startedSaturday. She is unsure how. She denies trauma. She was seen at urgent care yesterday and started on keflex. She notes worsening redness to her leg and foot. She has had no fever or chills. She has taken 6 doses of keflex. She denies any prior skin infections, mrsa, vascular disease or diabetes. She is a former smoker. Review of Systems Review of Systems positive wound. Allergies Allergen Reactions ??? Toradol [Ketorolac Tromethamine] Hives ??? Motrin [Ibuprofen] Itching Vital Signs Temp: 36.9 ??C (98.4 ??F) Temp src: Oral Pulse: 78 Resp: 16 SpO2: 99 % BP: 135/80 Physical Exam Alert, oriented, appears comfortable. Cardiac RRR, no murmur. Lungs clear Left 5th toe with blister over medial aspect of toe and mcp joint. Toe is erythematous and swollen.Left foot has swelling, erythema, mild tenderness. Anterior leg with mild erythema, non tender, no swelling. RESULTS EKG orders: None Radiology orders: None ED Lab Results Labs Reviewed - No data to display Relevant Data Procedures Verbal consent obtained. Incision made with 11 blade. Serous drainage was obtained. Wound culture sent. Dressing placed by me. ED COURSE A medical screening exam was performed. The patient presents for left toe blister and left foot cellulitis. She appears well. I think osteomyelitis is very unlikely. I+D was performed and had no pus drainage. I advised she use crutches, keep her leg elevated, and continue keflex. I extended her Rx x 5 more days. Wound culture is pending. If this does not improve in the next few days I think podiatry follow up might be helpful. Referral was made. Return precautions were discussed. ASSESSMENT AND PLAN Final diagnoses: None DISPOSITION: No disposition on file The patient's pain was managed to an adequate level weighing risk vs. benefit of further medications. Upon departure from the Emergency Department, the patient's pain was 3 on a zero to ten scale. Any further pain treatment will be at the discretion of the provider following up with the patient based on their clinical assessment. Condition at departure from the Emergency Department: Improved PCP: Jean BERNARDO Liu Espinal was available for supervision. 04/18/2018 12:15 No flowsheet data found. documented in this encounter Plan of Treatment Upcoming Encounters Date Type Department Care Team (Late st Contact Info) Description 06/29/2024 14:15 EDT Office Visit [facility] [address] [place] [address] Jean Munoz MD [address] [place] [phone] Scheduled Referrals Name Type Priority Associated Diagnoses Order Schedule AMB CONS/FOLLOW UP ORTHOPEDICS Outpatient Referral Routine Cellulitis of left foot Blister of toe, left, initial encounter Ordered: 04/18/2018 documented as of this encounter Procedures Procedure Name Priority Date/Time Associated Diagnosis Comments BACTERIAL CULTURE/SMEAR Routine 04/18/2018 12:50 EDT documented in this encounter Results * BACTERIAL CULTURE/SMEAR, OTHER (04/18/2018 12:50 EDT) Gram Smear Result No polys seen 04/18/2018 15:05 EDT [facility] Gram Smear Result No bacteria seen 04/18/2018 15:05 EDT [facility] Result Rare Usual skin tasneem 04/20/2018 10:07 EDT [facility] Specimen of unknown material (specimen) TOE STRUCTURE / Unknown 04/18/2018 12:50 EDT 04/18/2018 14:05 EDT Comment:Specimen submitted o n a flocked swab. Sukhwinder Nix PA-C MICROBIOLOGY - GENERAL ORDERABLES [facility] [address] [place] [address] documented in this encounter Visit Diagnoses Diagnosis Cellulitis of left foot- Primary Cellulitis and abscess of foot, except toes Blister of toe, left, initial encounter Screening for osteoporosis- Primary Special screening for [...] Tablet, oral, NOW X1, 1 dose, On Wed04/18/18 at 1300, STAT Given 04/18/2018 12:50 EDT 1 Tablet documented in this encounter Discontinued Medications Medication Sig Discontinue Reason Start Date End Da te cephALEXin (KEFLEX) 500 mg capsule Take 1 Cap by mouth 4 times daily for 5 days. 04/17/2018 04/18/2018 documented as of this encounter Active and Recently Administered Medications Times are shown in EDT. Scheduled Medication Order 04/16/2018 04/17/2018 04/18/2018 HYDROcodone-acetaminophen (NORCO) 5-325 mg tablet 1 Tab (COMPLETED) 1 Tablet, oral, NOW X1, 1 dose, On Wed04/18/18 at 1300, STAT 1250 (Given - Provid er: Yvonne Alas RN) documented in this encounter Orders Medications Ordered That Victor Manuel ht Not Have Been Administered Count Last Ordered Date First Ordered Date HYDROcodone-acetaminophen (N ORCO) 5-325 mg tablet 1 Tab 1 04/18/2018 documented in this encounter Care Teams Occupational Health And Safety Manager Relationship Specialty Start Date End Date Jean Munoz MD [address] [place] [phone] PCP - General 12/31/08 Manny Rizzo MD [address] [place] [address] 04/20/10 documented as of this encounter
--- OUTSIDE RECORDS SUMMARY | 2024-06-10 07:18 | XMS_ITS | Encounter Summary ---
Author Organization [facility] Address [address] [place] [address] Care Team Providers Care Machine Rope Maker Name Role Phone Jean Munoz MD Primary Care Provider Manny Rizzo MD Unavailable Reason for Visit * Reason Onset Date Comments Medications Refill 04/05/2018 Encounter Details Date Type Department Care Team (Late st Contact Info) Description 04/05/2018 Refill [facility] - [address] [address] Tiana Bacon [address] [place] [phone] Medications Refill Social History Tobacco Use [...] in the morning. 60 Tab 04/06/2018 05/03/2018 methylphenidate HCl (RITALIN;METHYLIN) 10 mg tablet Take one tab in the afternoon for narcolepsy. 30 Tab 04/06/2018 05/03/2018 documented in this encounter Miscellaneous Notes * Telephone Encounter - Sandy Arias - 04/06/2018 0849 EDT Calling to check on Rx - looks like it was requested yesterday. Told her our office policy is 2-3 business days for prescriptions and that it would most likely go through today * Telephone Encounter - Barbara Gimenez - 04/05/2018 0813 EDT Medication Refill Medication(s) Requested: Ritalin 20mg and Ritalin 10mg Pharmacy (reconcile pharmacy list): [facility] Is patient out of medication? No Picking up/mailing (location)/calling in/eprescribe? Eprescribe 30 day supply/90 day supply? 30 Barbara Gimenez 04/05/20188:13 documented in this encounter Plan of Treatment Upcoming Encounters Date Type Department Care Team (Late st Contact Info) Description 06/29/2024 14:15 EDT Office Visit [address] [address] Jean Munoz MD [address] [place] [phone] documented as of this encounter Visit Diagnoses Not on filedocumented in this encounter Discontinued Medications Medication Sig Discontinue Reason Start Date End Da te methylphenidate HCl (RITALIN;METHYLIN) 10 mg tablet Take one tab in the afternoon for narcolepsy. Reorder 03/08/2018 04/06/2018 methylphenidate HCl (RITALIN;METHYLIN) 20 mg tablet Take 2 tabs by mouth in the morning. Reorder 03/08/2018 04/06/2018 documented as of this encounter Care Teams Machine Rope Maker Relationship Specialty Start Date End Date Jean Munoz MD [address] [place] [phone] PCP - General 12/31/08 Manny Rizzo MD [address] [place] [address] 04/20/10 documented as of this encounter
--- OUTSIDE RECORDS SUMMARY | 2024-06-10 07:18 | XMS_ITS | Encounter Summary ---
Author Organization [facility] Address [address] [place] [address] Care Team Providers Care Dye Tub Operator Name Role Phone Jean Munoz MD Primary Care Provider Manny Rizzo MD Unavailable Afia Valle MD Unavailable Jesi Leong SAW RUNNER Unavailable SaloJesi shanks SAW RUNNER Unavailable [phone] Reason for Visit * Reason Comments Other Encounter Details Date Type Department Care Team (Late st Contact Info) Description 02/02/2018 Refill [facility] Medicine [facility] [address] [place], [place] [phone] Jean Munoz MD [address] [place] [phone] Other Social History Tobacco Use [...] 2 tablets 9 Tab 4 02/02/2018 06/26/2018 documented in this encounter Miscellaneous Notes * Telephone Encounter - Jean Munoz MD - 02/02/2018 1348 EDT escript done, please notify patient, thanks * Telephone Encounter - Jim Garcia RN - 02/02/2018 1259 EDT Medication(s) Requested: Sumatriptan 50 mg tabs Preferred Pharmacy: [facility] Is patient out of medication? Unknown Last Refill Date: 08/09/17 9 tabs w/5 RF Last Visit Date with Ordering Provider: 12/14/17 Next Non-Acute Visit Date Scheduled with Care Team: Yes. JIM GARCIA RN 02/02/2018 12:59 documented in this encounter Plan of Treatment Upcoming Encounters Date Type Department Care Team (Lakesha Contact Info) Description 06/29/2024 14:15 EDT Office Visit [facility] [address] [place] [address] Jean Munoz MD [address] [place] [address] documented as of this encounter [...] as needed for migraine *daily limit 2 tab Reorder 08/09/2017 02/02/2018 documented as of this encounter Additional Health Concerns Infection Onset Date Last Indicated Resolved Time R/O COVID-19 05/15/2022 05/15/2022 05/20/2022 22:1 6 EDT R/O COVID-19 11/14/2022 11/14/2022 11/14/2022 19:1 6 EST documented as of this encounter Care Teams Dye Tub Operator Relationship Specialty Start Date End Date Jean Munoz MD [address] [place] [address] PCP - General 12/31/08 Manny Rizzo MD [address] [place] [phone] 04/20/10 Afia Valle MD [address] [facility] [address] [place] [address] MD Care Team Radiation Oncology 07/02/21 Jesi Leong SAW RUNNER [address] [place] [phone] Geological Specialist 12/24/21 09/20/22 Jesi Leong SAW RUNNER [address] [place] [phone] Behavioral Health Geological SpecialistLegal Coordinator Care 10/19/22 01/23/24 documented as of this encounter
--- OUTSIDE RECORDS SUMMARY | 2024-06-10 07:18 | XMS_ITS | Encounter Summary ---
Author Organization [facility] Address [address] [place] [address] Care Team Providers Care Refrigeration Supervisor Name Role Phone Jean Munoz MD Primary Care Provider Manny Rizzo MD Unavailable Afia Valle MD Unavailable Jesi Leong MATERIALS BRANCH CHIEF Unavailable [phone] SaloJesi shanks MATERIALS BRANCH CHIEF Unavailable Reason for Visit * Reason Comments Other Encounter Details Date Type Department Care Team (Late st Contact Info) Description 04/05/2018 Refill [facility] [address] [place], [place] [phone] Jean Munoz MD [address] [place] [address] Other Social History Tobacco Use [...] EVERY DAY 90 Cap 4 04/05/2018 09/20/2018 documented in this encounter Miscellaneous Notes * Telephone Encounter - Jean Munoz MD - 04/05/2018 1022 EDT escript done, please notify patient, thanks * Telephone Encounter - Yadira Mccauley RN - 04/05/2018 0916 EDT Medication(s) Requested: dozycycline 100 Preferred Pharmacy: [facility] Is patient out of medication? Unknown Last Refill Date: 06/01/17 Last Visit Date with Ordering Provider: 03/03/18 Next Non-Acute Visit Date Scheduled with Care Team: 05/26/18 Yadira Mccauley RN 04/05/2018 9:16 documented in this encounter Plan of Treatment Upcoming Encounters Date Type Department Care Team (Late st Contact Info) Description 06/29/2024 14:15 EDT Office Visit [address] [address] Jean Munoz MD [address] [place] [address] documented as of this encounter Visit Diagnoses Diagnosis Rosacea Screening for osteoporosis- Primary Special screening for [...] 1 CAPSULE BY MOUTH EVERY DAY Reorder 10/15/2017 04/05/2018 documented as of this encounter Additional Health Concerns Infection Onset Date Last Indicated Resolved Time R/O COVID-19 05/15/2022 05/15/2022 05/20/2022 22:1 6 EDT R/O COVID-19 11/14/2022 11/14/2022 11/14/2022 19:1 6 EST documented as of this encounter Care Teams Refrigeration Supervisor Relationship Specialty Start Date End Date Jean Munoz MD [address] [place] [phone] PCP - General 12/31/08 Manny Rizzo MD [address] [place] [phone] 04/20/10 Afia Valle MD [address] [facility] [address] [place] [phone] Care Team Radiation Oncology 07/02/21 Jesi Leong, [facility] [address] [place] [address] Sandblaster Paint Sprayer 12/24/21 09/20/22 Jesi Leong, [facility] [address] [place] [address] Behavioral Health Sandblaster Paint SprayerRug Touch Up Painter Care 10/19/22 01/23/24 documented as of this encounter
--- OUTSIDE RECORDS SUMMARY | 2024-06-10 07:18 | XMS_ITS | Encounter Summary ---
Author Organization [facility] Address [address] [place] [address] Care Team Providers Care Administrative Support Technician Name Role Phone Jean Munoz MD Primary Care Provider Manny Rizzo MD Unavailable Reason for Visit * Reason Onset Date Comments Prior Auth, Medication 05/26/2018 Fexofenad ine Encounter Details Date Type Department Care Team (Late st Contact Info) Description 05/26/[address] [address] Kaitlyn Montero LPN [address] [place] [address] Prior Auth, Medication (Fexofenadine ) Social History Tobacco Use Types Packs/Day [...] Telephone Encounter - Kaitlyn Montero LPN - 05/27/2018 1118 EDT Medication: Fexofenadine 180 mg Insurance Co: [place] Approval # (if applicable): [id number] Approval dates: 05/26/2018-05/26/2019 Name of Pharmacy notified: [facility] * Telephone Encounter - Kaitlyn Montero LPN - 05/26/2018 1628 EDT [place] sent to [place] ([place]) for Fexofenadine. Waiting for response. Kaitlyn Montero LPN documented in this encounter Plan of Treatment Upcoming Encounters Date Type Department Care Team (Late st Contact Info) Description 06/29/2024 14:15 EDT Office Visit [facility] [address] [place] [address] Jean Munoz MD [address] [place] [address] documented as of this encounter Visit Diagnoses Not on filedocumented in this encounter Care Teams Administrative Support Technician Relationship Specialty Start Date End Date Jean Munoz MD [address] [place] [phone] PCP - General 12/31/08 Manny Rizzo MD [address] [place] [phone] 04/20/10 documented as of this encounter
--- OUTSIDE RECORDS SUMMARY | 2024-06-10 07:18 | XMS_ITS | Encounter Summary ---
Author Organization [facility] Address [address] [place] [address] Care Team Providers Care Keying Machine Operator Name Role Phone Jean Munoz MD Primary Care Provider Manny Rizzo MD Unavailable Reason for Visit * Reason Comments Ankle Pain right Encounter Details Date Type Department Care Team (Late st Contact Info) Description 01/13/2018 13:30 EDT Office Visit [facility] Foot [facility] Ankle Program - [address] [address] Liu Tilley MD [address] [place] [phone] Posterior tibial tendon dysfunction, right (Primary Dx) Discharge Disposition: Auto Discharge Social [...] No 12/27/2016 documented as of this encounter Discharge Diagnoses Diagnosis M79.671 Pain in right foot-M79.671[ICD-10-CM] documented in this encounter Discharge Disposition Disposition Code Departure Means Destination Auto Discharge documented in this encounter Progress Notes * Anthony Ricci MD - 01/13/2018 1330 EDT PROCEDURE: Right calcaneus osteotomy and FDL to PTT transfer, removal of anterior ankle osteophyte performed on 10/11/[address] Tilley. SUBJECTIVE: Ms Viera returns to clinic today for routine followup after undergoing the above procedure. She has been doing very well since her operation. She continues to work with physical therapy and has just recently finished it. She reports good strength and no other complications from the op eration. She continues to wean out of her brace without issue. OBJECTIVE: The patient is alert and oriented, no acute distress. Physical examination of the right lower extremity reveals well-healed incisions without concerning signs for infection. No significanttenderness to palpation over the ankle joint or mid foot. She has 5/5 strength with plantar flexors, dorsiflexors, peroneals, posterior tibialis. Sensation is intact in all nerve distributions of thefoot, but is slightly diminished in DP and SP distributions. She has palpable pulses. IMAGING: Three weightbearing views of the right foot were obtained in clinic today. These were reviewed personally with Dr Tilley. They show an ongoing callus formation of the calcaneal osteotomy without evidence of hardware failure or loosening. There is the previously identified small fracture in the tunnel in the navicular, but this is stable. ASSESSMENT AND PLAN: Ms Viera is a 57-year-old female who is now 5 months status post right calcaneus osteotomy and FDL to PTT transfer and additional removal of anterior osteophyte. She continuesto progress in this period. She has finished physical therapy and is progressing well. We recommendthat she continues to wean out of her brace as she can tolerate and can begin transitioning into her normal shoe wear. At this point, she does not need any additional followup with us, given how bro is doing. She can, of course, return to clinic should any issues arise. The patient voiced understanding and agreement with this plan. All of her questions were answered prior to the conclusion of this encounter. The patient was seen and examined by Dr Tilley. * Liu Tilley MD - 01/13/2018 1130 EDT Attestation statement: I saw and examined the patient with the resident/fellow. I agree with the findings and plan of care documented in the resident's/fellow's note. documented in this encounter Plan of Treatment Upcoming Encounters Date Type Department Care Team (Late st Contact Info) Description 06/29/2024 14:15 EDT Office Visit [address] [phone] Jean Munoz MD [address] [place] [phone] documented as of this encounter Visit Diagnoses Diagnosis Posterior tibial tendon dysfunction, right- Primary Screening for osteoporosis- Primary Special screening for osteoporosis Primary narcolepsy without cataplexy Chronic pain syndrome Chronic low back pain Lumbago Chronic use of opiate for therapeutic purpose Pain medication agreement Encounter for long-term (current) use of other medications Screen for colon cancer Special screening for malignant neoplasms, colon documented in this encounter Care Teams Keying Machine Operator Relationship Specialty Start Date End Date Jean Munoz MD [address] [place] [phone] PCP - General 12/31/08 Manny Rizzo MD [address] [place] [phone] 04/20/10 documented as of this encounter
--- OUTSIDE RECORDS SUMMARY | 2024-06-10 07:18 | XMS_ITS | Encounter Summary ---
Author Organization [facility] Address [address] [place] [address] Care Team Providers Care Lead Laying And Gluing Machine Operator Name Role Phone Jean Munoz MD Primary Care Provider Manny Rizzo MD Unavailable Reason for Visit * Reason Comments Chronic Pain Omnaris Encounter Details Date Type Department Care Team (Late st Contact Info) Description 03/03/2018 13:00 EDT Office Visit [facility] [address] [place] [address] Jean Munoz MD [address] [place] [phone] Chronic pain syndrome (Primary Dx); Chronic use of opiate for therapeutic purpose; Insomnia, unspecified type; Need for vaccination; Tobacco dependence in remission; Seasonal allergic rhinitis, unspecified trigger Discharge Disposition: Auto Discharge Social History Tobacco [...] Reading Time Taken Comments Blood Pressure 124/72 03/03/2018 1304 EDT Pulse 80 03/03/2018 1304 EDT Temperature 37.1 ??C (98.7 ??F) 03/03/2018 1304 EDT Respiratory Rate 17 03/03/2018 1304 EDT Oxygen Saturation - - Inhaled Oxygen Concentration - - Weight 90.3 kg (199 lb) 03/03/2018 1304 EDT Height 162.6 cm (5' 4) 03/03/2018 1304 EDT Body Mass Index 34.16 03/03/2018 1304 EDT documented in this encounter Functional Status [...] Diagnoses Diagnosis G89.4 Chronic pain syndrome-G89.4[ICD-10-CM] Z79.891 halfway (current) use of opiate analgesic-Z79.891[ICD-10-CM] documented in this encounter Ordered Prescriptions Prescription Sig Dispensed Refills Start Date End Da te Ciclesonide 50 mcg spray,non-aerosolIndicati ons:Seasonal allergic rhinitis, unspecified trigger 1 spray each nostril daily 37.5 g 5 03/03/2018 08/04/2023 zolpidem (AMBIEN) 5 mg tabletIndications:Insomni a, unspecified type Take 1 Tab by mouth at bedtime as needed for Sleep. Daily Max: 5 mg 30 Tab 2 05/01/2018 05/26/2018 traMADol (ULTRAM) 50 mg tabletIndications:Chronic pain syndrome,Chronic use of opiate for therapeutic purpose TAKE ONE TABLET BY MOUTH EVERY SIX HOURS NEEDED FOR PAIN: daily max: 4 tabs (200mg) 60 Tab 2 03/03/2018 05/26/2018 HYDROcodone-acetaminophen (NORCO) 5-325 mg tabletIndications:Chronic pain syndrome,Chronic use of opiate for therapeutic purpose Take 1-2 Tabs by mouth every 6 hours as needed for up to 28 days for Pain. Daily Max: 8 Tabs 112 Tab 03/08/2018 05/26/2018 HYDROcodone-acetaminophen (NORCO) 5-325 mg tabletIndications:Chronic pain syndrome,Chronic use of opiate for therapeutic purpose Take 1-2 Tabs by mouth every 6 hours as needed for up to 28 days for Pain. Daily Max: 8 Tabs 112 Tab 04/05/2018 05/26/2018 HYDROcodone-acetaminophen (NORCO) 5-325 mg tabletIndications:Chronic pain syndrome,Chronic use of opiate for therapeutic purpose Take 1-2 Tabs by mouth every 6 hours as needed for up to 28 days for Pain. Daily Max: 8 Tabs 112 Tab 05/03/2018 05/26/2018 documented in this encounter Discharge Disposition Disposition Code Departure Means Destination Auto Discharge documented in this encounter Progress Notes * Jean Munoz MD - 03/03/2018 1300 EDT Subjective: Patient ID: Liset Viera is an 57 y.o. female. Chief Complaint Patient presents with ??? Chronic Pain Omnaris HPI Liset is a 56 year old female here for follow up of chronic pain, snf therapeutic use of prescription opiate Has had surgery right foot in September 2017 for tendon injury Right calcaneus osteotomy and FDL to PTT transfer, removal of anterior ankle osteophyte performed on 10/11/[address] Tilley Also past ankle fracture about 10 years ago Had fall afterwards, has walking boot, PT, crutches Has been taking hydrocodone >5 years Tramadol since May 2017 Due for UDS Active problem list, past medical history, past surgical history, medications, allergies, family history and social history were reviewed. Patient Active Problem List Diagnosis ??? Severe major depression without psychotic features ([facility]) ??? Gastroesophageal reflux disease ??? Chronic back [...] tendon dysfunction, right ??? Foot pain, right Past Medical History: Diagnosis Date ??? Abdominal [...] to Visit Medication Sig Dispense Refill ??? amLODIPine (NORVASC) 5 mg tablet Take 1 Tab by mouth daily. 90 Tab 3 ??? blood glucose (BLOOD GLUCOSE TEST) test strips 1 Strip by misc (non-drug; combo route) route 2 times daily. 100 Each 1 ??? cycloSPORINE (RESTASIS) 0.05 % ophthalmic emulsion Place 1 Drop into both eyes 2 times daily ??? docusate sodium (COLACE) 100 mg capsule Take 1 Cap by mouth 2 times daily as needed for Constipation. ??? doxycycline (VIBRAMYCIN) 100 mg capsule TAKE 1 CAPSULE BY MOUTH EVERY DAY 90 Cap 1 ??? fexofenadine (JUDITH) 180 mg tablet Take 1 Tab by mouth daily. 90 Tab 3 ??? fluticasone-salmeterol (ADVAIR HFA) 115-21 mcg/actuation inhaler Inhale 1 Puff as directed 2 times daily. 1 Inhaler 11 ??? hydroxypropyl methylcellulose (ISOPTO TEARS) 0.5 % ophthalmic solution Place 1 Drop into both eyes 5 times daily. ??? ipratropium-albuterol (DUONEB) 0.5 mg-3 mg(2.5 mg base)/3 mL nebulizer solution Take 3 mL by nebulization every 4 hours as needed for Wheezing. 3 mL 3 ??? lancets Brand: One Touch Delica 100 Each 2 ??? montelukast (SINGULAIR) 10 mg tablet TAKE 1 TABLET BY MOUTH EVERY DAY 90 Tab 4 ??? naloxone (NARCAN) 4 mg/actuation nasal spray 1 [place] by nasal route as needed for Opioid Reversal. (Patient not taking: Reported on 11/25/2017) 1 Each 0 ??? omeprazole (PRILOSEC) 40 mg capsule Take 1 Cap by mouth daily. 90 Cap 3 ??? ondansetron (ZOFRAN) 4 mg tablet TAKE ONE TABLET BY MOUTH DAILY NEEDED for nausea 30 Tab 3 ??? promethazine (PHENERGAN) 12.5 mg tablet Take 1 Tab by mouth every 6 hours as needed for Nausea.30 Tab 2 ??? roflumilast (DALIRESP) 500 mcg tablet Take 1 Tab by mouth daily. 90 Tab 1 ??? rOPINIRole (REQUIP) 2 mg [...] daily as directed 12 g 2 ??? XOPENEX HFA 45 mcg/actuation inhaler INHALE TWO PUFFS BY MOUTH EVERY SIX HOURS NEEDED 45 g 5 No current facility-administered medications on file prior to visit. Allergies Allergen Reactions ??? Toradol [Ketorolac Tromethamine] Hives ??? Motrin [Ibuprofen] Itching Social Social History Substance Use Topics ??? Smoking status: Former Smoker Packs/day: 1.50 Years: 37.00 Types: Cigarettes Start date: 09/13/1975 Quit date: 09/13/2012 ??? Smokeless tobacco: Never Used ??? Alcohol use No Comment: rarely ROS - See HPI Objective: BP 124/72 (BP Cuff Location: Left arm) Pulse 80 Temp 37.1 ??C (98.7 ??F) (Tympanic) Resp 17 Ht 162.6 cm (64) Wt 90.3 kg (199 lb) LMP 01/11/1987 BMI 34.16 kg/m2 Physical Exam deferred Assessment: See below [...] Tabs - traMADol (ULTRAM) 50 mg tablet; TAKE ONE TABLET BY MOUTH EVERY SIX HOURS NEEDED FOR PAIN: daily max: 4 tabs (200mg) - Drug Screen 11, Urine (Amphetamine, Barbiturates, Benzodiazepine, Buprenorphine, Cannabinoids, Cocaine, Methamphetamine, Methadone, Opiates, Oxycodone Stable Check UDS today Recheck 12 weeks Insomnia, unspecified type - zolpidem (AMBIEN) 5 mg tablet; Take 1 Tab by mouth at bedtime as needed for Sleep. Daily Max: 5 mg Need for vaccination - Shingrix (Zoster Vaccine, Recombinant) IM - Shingrix (Zoster Vaccine, Recombinant) IM; Future Tobacco dependence in remission - CT LOW DOSE LUNG CANCER ANNUAL SCREENING WO CONTRAST Seasonal allergic rhinitis, unspecified trigger - Ciclesonide 50 mcg spray,non-aerosol; 1 spray each nostril daily Patient Education Topic: as above Method: Verbal Taught to: Patient Barriers: None Outcomes: Verbalized understanding Return in 3 months (on 05/31/2018) for SERA. * Kaitlyn Montero LPN - 03/03/2018 1300 EDT Shingrix vaccine administered as ordered per Dr. Munoz. See immunization record for details. Patient advised to wait 10 minutes after administration for observation of possible adverse reaction. documented in this encounter Plan of Treatment Upcoming Encounters Date Type Department Care Team (Late st Contact Info) Description 06/29/2024 14:15 EDT Office Visit [facility] [address] [place], [place] [id number] Jean Munoz MD [address] [place] [phone] documented as of this encounter Procedures Procedure Name Priority Date/Time Associated Diagnosis Comments DRUG SCREEN 11, URINE Routine 03/03/2018 13:42 EDT Chronic pain syndrome Chronic use of opiate for therapeutic purpose documented in this encounter Results * DRUG SCREEN 11, URINE (03/03/2018 13:42 EDT) Amphetamine Screen Negative screen. 03/03/2018 18:06 EDT [facility] Comment: Confirmation testing available upon request. Suitable for medical purposes only. Will not detect all drugs within class. Cutoff = 500 ng/ml Specimen type is urine. Barbituate Screen Negative screen. 03/03/2018 18:06 EDT [facility] Comment: Confirmation testing available upon request. Suitable for medical purposes only. Will not detect all drugs within class. Cutoff = 200 ng/ml Specimen type is urine. Benzodiazepine Scrn Negative screen. 03/03/2018 18:06 [facility] Comment: Confirmation testing available upon request. Suitable for medical purposes only. Will not detect all drugs within class. Cutoff = 150 ng/ml Specimen type is urine. Cannabinoids Screen Presumptive positive, interpret with caution. 03/03/2018 18:06 [facility] Comment: Confirmation testing available upon request. Suitable for medical purposes only. Will not detect all drugs within class. Cutoff = 50 ng/ml Specimen type is urine. Methadone Screen Negative screen. 03/03/2018 18:06 [facility] Comment: Confirmation testing available upon request. Suitable for medical purposes only. Will not detect all drugs within class. Cutoff = 200 ng/ml Specimen type is urine. Opiates Screen Negative screen. 03/03/2018 18:06 [facility] Comment: Confirmation testing available upon request. Suitable for medical purposes only. Will not detect all drugs within class. Cutoff = 100 ng/ml Specimen type is urine. Oxycodone Screen Negative screen. 03/03/2018 18:06 [facility] Comment: Confirmation testing available upon request. Suitable for medical purposes only. Will not detect all drugs within class. Cutoff = 100 ng/ml Specimen type is urine. Cocaine Metabolites Negative screen. 03/03/2018 18:06 [facility] Comment: Confirmation testing available upon request. Suitable for medical purposes only. Will not detect all drugs within class. Cutoff = 150 ng/ml Specimen type is urine. Buprenorph and Metab Negative screen. 03/03/2018 18:06 [facility] Comment: Confirmation testing available upon request. Suitable for medical purposes only. Will not detect all drugs within class. Cutoff = 10 ng/ml Specimen type is urine. Methamphetamine Scrn Negative screen. 03/03/2018 18:06 [facility] Comment: Confirmation testing available upon request. Suitable for medical purposes only. Will not detect all drugs within class. Cutoff = 500 ng/ml Specimen type is urine. Propoxyphene Screen Negative screen. 03/03/2018 18:06 [facility] Comment: Confirmation testing available upon request. Suitable for medical purposes only. Will not detect all drugs within class. Cutoff = 300 ng/ml Specimen type is urine. Urine specimen (specimen) URINE / Unknown 03/03/2018 13:42 EDT 03/03/2018 17:34 EDT Jean Munoz MD GEN LAB UNIT CO LLECT ORDERABLES [facility] [address] [place] [address] documented in this encounter Visit Diagnoses Diagnosis Chronic pain syndrome- Primary Chronic use of opiate for therapeutic purpose Insomnia, unspecified type Need for vaccination Need for prophylactic vaccination and inoculation against unspecified single disease Tobacco dependence in remission Personal history of tobacco use, presenting hazards to health Seasonal allergic rhinitis, unspecified trigger Screening for osteoporosis- Primary Special [...] n (NORCO) 5-325 mg tabletIndications:Chroni c pain syndrome Take 1-2 Tabs by mouth every 6 hours as needed for up to 28 days for Pain. Daily Max: 8 Tabs Reorder 12/14/2017 03/03/2018 HYDROcodone-acetaminophe n (NORCO) 5-325 mg tabletIndications:Chroni c pain syndrome Take 1-2 Tabs by mouth every 6 hours as needed for up to 28 days for Pain. Daily Max: 8 Tabs Reorder 01/11/2018 03/03/2018 HYDROcodone-acetaminophe n (NORCO) 5-325 mg tabletIndications:Chroni c pain syndrome Take 1-2 Tabs by mouth every 6 hours as needed for up to 28 days for Pain. Daily Max: 8 Tabs Reorder 02/08/2018 03/03/2018 traMADol (ULTRAM) 50 mg tabletIndications:Chroni c pain syndrome TAKE ONE TABLET BY MOUTH EVERY SIX HOURS NEEDED FOR PAIN: daily max: 4 tabs (200mg) Reorder 12/14/2017 03/03/2018 zolpidem (AMBIEN) 5 mg tabletIndications:Insomn ia, unspecified type Take 1 Tab by mouth at bedtime as needed for Sleep. Daily Max: 5 mg Reorder 12/14/2017 03/03/2018 Ciclesonide 50 mcg spray,non-aerosolIndicat ions:Seasonal allergic rhinitis, unspecified allergic rhinitis trigger 1 spray each nostril daily Reorder 06/02/2017 03/03/2018 documented as of this encounter Orders Immunization/Injection Count Last Ordered Date First Ordered Date SHINGRIX (ZOSTER VACCINE, RECOMBINANT) IM 1 03/03/2018 documented in this encounter Care Teams Lead Laying And Gluing Machine Operator Relationship Specialty Start Date End Date Jean Munoz MD [address] [place] [phone] PCP - General 12/31/08 Manny Rizzo MD [address] [place] [phone] 04/20/10 documented as of this encounter
--- OUTSIDE RECORDS SUMMARY | 2024-06-10 07:18 | XMS_ITS | Encounter Summary ---
Author Organization [facility] Address [address] [place] [address] Care Team Providers Care Rubber Production Machine Operator Name Role Phone Jean Munoz MD Primary Care Provider Manny Rizzo MD Unavailable Reason for Visit * Reason Onset Date Comments DME 02/08/2018 Encounter Details Date Type Department Care Team (Late st Contact Info) Description 02/08/2018 Telephone [facility] - [address] [id number] Tiana Bacon [address] [place] [phone] DME Social History Tobacco Use [...] Telephone Encounter - Paula Ceballos - 02/08/2018 1521 EDT Pt wants to try a new type of mask, nasal cannulas are making her Nose sore. Would like to have a script sent to [facility] for mask of choice instead of having a tech visit documented in this encounter Plan of Treatment Upcoming Encounters Date Type Department Care Team (Late st Contact Info) Description 06/29/2024 14:15 EDT Office Visit [facility] [address] [place] [address] Jean Munoz MD [address] [place] [phone] documented as of this encounter Visit [...] Orde red Date CPAP/BIPAP GENERAL ORDER 1 02/08/2018 documented in this encounter Care Teams Rubber Production Machine Operator Relationship Specialty Start Date End Date Jean Munoz MD [address] [place] [phone] PCP - General 12/31/08 Manny Rizzo MD [address] [place] [phone] 04/20/10 documented as of this encounter
--- OUTSIDE RECORDS SUMMARY | 2024-06-10 07:18 | XMS_ITS | Encounter Summary ---
Author Organization [facility] Address [address] [place] [address] Care Team Providers Care Ceo And President Name Role Phone Jean Munoz MD Primary Care Provider Manny Rizzo MD Unavailable Encounter Details Date Type Department Care Team (Late st Contact Info) Description 03/03/2018 Results Only [facility] [address] [place] [address] Jean Munoz MD [address] [place] [phone] Social History Tobacco Use Types [...] Yes 03/03/2018 Cognitive Status Response Date of Assess ent Because of a physical, menta l, or emotional condition, does this person have serious difficulty concentrating, remembering, or making decisions? Yes 03/03/2018 documented as of this encounter Plan of Treatment Upcoming Encounters Date Type Department Care Team (Late st Contact Info) Description 06/29/2024 14:15 EDT Office Visit [facility] [address] [place] [address] Jean Munoz MD [address] [place] [phone] documented as of this encounter Procedures Procedure Name Priority Date/Time Associated Diagnosis Comments OPIATE PANEL CONFIRMATION Routine 03/03/2018 13:42 EDT documented in this encounter Results * OPIATE CONFIRMATION PANEL, U (03/03/2018 13:42 EDT) Codeine NEGATIVE <50 ng/mL 03/09/2018 13:04 [facility] Hydrocodone NEGATIVE <50 ng/mL 03/09/2018 13:04 [facility] Hydromorphone NEGATIVE <50 ng/mL 03/09/2018 13:04 [facility] Morphine NEGATIVE <50 ng/mL 03/09/2018 13:04 [facility] Oxycodone NEGATIVE <50 ng/mL 03/09/2018 13:04 [facility] Oxymorphone NEGATIVE <50 ng/mL 03/09/2018 13:04 [facility] Comment: Performed by: [facility], [address] [place] [id number], Reading Specialist: Sho Ellis MD URINE / Unknown 03/03/2018 1 3:42 EDT 03/03/2018 17:34 EDT Jean Munoz MD URINALYSIS [facility] Organization Address City/State/ZIP Co de Phone Number [facility] [address] [place] [address] documented in this encounter Visit Diagnoses Not on filedocumented in this encounter Care Teams Ceo And President Relationship Specialty Start Date End Date Jean Munoz MD [address] [place] [phone] PCP - General 12/31/08 Manny Rizzo MD [address] [place] [phone] 04/20/10 documented as of this encounter
--- OUTSIDE RECORDS SUMMARY | 2024-06-10 07:18 | XMS_ITS | Encounter Summary ---
Author Organization [facility] Address [address] [place] [address] Care Team Providers Care Captain Waiter/Waitress Name Role Phone Jean Munoz MD Primary Care Provider Manny Rizzo MD Unavailable Reason for Visit * Reason Comments Foot Problem left foot * Consult (3 - 10 Business Days) - Specialty Report Received Specialty Diagnoses / Procedures Referred By Alex weldon Referred To Contact Orthopedic Surgery Diagnoses Cellulitis of left foot Blister of toe, left, initial encounter Sukhwinder Nix PA-C [address] [facility] [address] [place] [address] [facility] [address] [place] [address] Referral ID Status Reason Start Date Expiration Date Visits Requested Visits Authorized [id number] Specialty Report Received Specialty Services Required 04/18/2018 1 1 Encounter Details Date Type Department Care Team (Late st Contact Info) Description 04/19/2018 9:00 EDT Office Visit [facility] - [facility] [place] [address] [place] [address] Danyell Nelson, [address] [address] Ulcer of foot, left, limited to breakdown of skin (HCC-CMS) (Primary Dx); Left foot pain Discharge Disposition: Auto Discharge Social History Tobacco [...] - - Weight 88.5 kg (195 lb) 04/19/2018 0930 EDT Height 162.6 cm (5' 4) 04/19/2018 0930 EDT Body Mass Index 33.47 04/19/2018 0930 EDT documented in this encounter Functional Status [...] Yes 04/19/2018 documented as of this encounter Discharge Diagnoses Diagnosis M79.89 Other specified soft tissue disorders-M79.89[ICD-10-CM] documented in this encounter Discharge Disposition Disposition Code Departure Means Destination Auto Discharge documented in this encounter Progress Notes * Danyell Nelson DPM - 04/19/2018 0900 EDT Images from the original note were not included. HPI: Liset Viera is a very pleasant 57 y.o. female patient who presents with complaint of left foot blister, cellulitis. She reports that this past Wednesday, she noticed a blister in between her left fourth and fifth toes. She popped it herself and expressed a lot of clear fluid. The blister became bigger the following day and had some surrounding redness, so she went to urgent care on Wednesday. Shewas prescribed Keflex. The next day, on April 18, the blister again had become bigger and the redness had increased and she now had a lot of swelling to the foot. She went to the emergency department. The blister was drained. A culture was taken. Her Keflex was extended. She was advised to not bear weight on the foot, and instructed to follow-up with podiatry. She presents today with her friend. She notes that the foot is painful. It has not increased in pain since the weekend, but remained about the same. Redness has remained about the same. Swelling has remained about the same. Overall she is feeling well and denies any nausea, vomiting, fever, chills.She has been leaving the foot uncovered as instructed by the emergency department. She has been elevating the foot and using the crutches for ambulation. Past medical history, medications, allergies, past surgical, social and family history were reviewed and noted in [facility]. The intake form was reviewed and signed. Patient Active Problem List Diagnosis Date Noted [...] granuloma of eyelid 10/17/2013 ??? Panlobular emphysema ([facility]) 03/02/2013 Class: Permanent ??? Wears eyeglasses ??? Chronic fatigue Class: Temporary ??? Dizziness 01/23/2013 Class: Temporary ??? Hesitancy 01/11/2013 Class: Temporary ??? Complications due to internal orthopedic device, implant, and graft ([facility]) 07/04/2012 Class: Temporary ??? Varicose veins 06/02/2012 [...] ??? Severe major depression without psychotic features ([facility]) 01/22/2010 Class: Permanent ??? Chronic pain [...] ANKLE FRACTURE SURGERY 04/01/10 left ankle [facility] ??? CERVICAL SPINE SURGERY 12/31/08 [...] GLUCOSE TEST) [facility]; combo route) route 2 times daily. [...] negative. Vital signs: height is 162.6 cm (64) and weight is 88.5 kg (195 lb). PHYSICAL EXAM: General: AO x 3, NAD Lower extremity: Palpable pedal pulses. Skin temperature gradient WNL. CFT < 3 sec to all toes. Bullae 4th interspace. Pain on palpation. Serous fluid expressed. No purulence. No malodor. Pain on compression. Erythema and edema to the forefoot. No crepitus to the 4th interspace. MMT 5/5. Gross protective sensation intact. ASSESSMENT: 1. Ulcer of foot, left, limited to breakdown of skin ([facility]) 2. Left foot pain No orders of the defined types were placed in this encounter. PLAN: Ms. Viera presents today with a left fourth interspace bullae, cellulitis. I drained some more serous fluid out of the blister today. No purulence expressed. No probing deep. Granular wound base. We obtained some x-rays today due to continued pain and swelling in the foot. No erosive changes to bone. No soft tissue emphysema. We discussed these findings. Likely has had little improvement due to blister needing to be drained, as it was yesterday and again today, and just having started the antibiotics. I did review the culture taken in the emergency department, which showed no growth to date. She is going to continue on the Keflex. If redness and swelling do not improve over the next couple days, she is going to call, and we will likely try a different antibiotic, perhaps 1 with MRSA coverage, though she does not have any history of this. She is going to apply a light layer of Betadine to the area daily to dry out the interspace and allow the blister to drain. She is going to discovered-I advised her against swimming or soaking the foot. She is going to continue with the crutches and elevation of the foot. I am going to see her back in 1 week. She knows to call before then if any problem arise and is happy with this plan. She also knows that if redness, swelling, pain increases, or if she has any systemic signs of infection which we reviewed today, to report to the ED immediately. All the questions were answered and the patient was encouraged to call the clinic with any questions / concerns. Patient voices understanding and agrees with the plan. Cc: Requesting Provider - Dr. Nix PCP - Jean Munoz Portions of this document have been prepared with speech recognition software or keyboard medical data entry clerk techniques. Minor irregularities or keyboarding misprints may be present documented in this encounter Plan of Treatment Upcoming Encounters Date Type Department Care Team (Late st Contact Info) Description 06/29/2024 14:15 EDT Office Visit [facility] [address] [place] [address] Jean Munoz MD [address] [place] [address] documented as of this encounter Visit Diagnoses Diagnosis Ulcer of foot, left, limited to breakdown of skin ([facility])- Primary Left foot pain Pain in limb Screening for osteoporosis- Primary Special screening for osteoporosis Primary narcolepsy without cataplexy Chronic pain syndrome Chronic low back pain Lumbago Chronic use of opiate for therapeutic purpose Pain medication agreement Encounter for long-term (current) use of other medications Screen for colon cancer Special screening for malignant neoplasms, colon documented in this encounter Care Teams Captain Waiter/Waitress Relationship Specialty Start Date End Date Jean Munoz MD [address] [place] [address] PCP - General 12/31/08 Manny Rizzo MD [address] [place] [address] 04/20/10 documented as of this encounter
--- OUTSIDE RECORDS SUMMARY | 2024-06-10 07:19 | XMS_ITS | Encounter Summary ---
Author Organization [facility] Address [address] [place] [address] Care Team Providers Care Dna Sequencing Associate Name Role Phone Jean Munoz MD Primary Care Provider Manny Rizzo MD Unavailable Reason for Visit * Reason Comments Ankle Pain right Encounter Details Date Type Department Care Team (Late st Contact Info) Description 10/26/2017 13:00 EST Post-op Visit [facility] Foot & Ankle Program - [address] [phone] Liu Tilley MD [address] [place] [phone] Posterior tibial tendon dysfunction, right (Primary Dx) Social History Tobacco Use Types [...] No 12/27/2016 documented as of this encounter Progress Notes * Liu Tilley MD - 10/26/2017 1300 EST PROGRESS NOTE/FOLLOWUP NOTE Chief Complaint Patient presents with ??? Ankle Pain right PROCEDURES: Right calcaneus osteotomy and flexor digitorum longus to posterior tibial tendon transfer, removal of anterior ankle osteophytes, 10/11/17. SUBJECTIVE: Liset Viera came in today in follow up after the above surgery. She stated today that things have been going well since surgery and she had no complaints. REVIEW OF SYSTEMS: Negative except for pertinent positives listed above. OBJECTIVE: Patient is in no acute distress. Right Ankle: Skin: Incisions are all dry, clean, healing well, no sign of infection. Appropriate swelling and ecchymoses. Pulses: Nicely palpable. Sensation: Intact. Strength: Intact. Musculoskeletal: Foot and ankle in good position. The FDL transfer is working well. IMAGING: Fluoroscopic images done the day of surgery were reviewed with the patient. ASSESSMENT AND PLAN: The patient is having a very nice recovery after surgery and her foot and ankle look just as I would want them to today. She was put into Tubigrip and a removable boot today. Continue to be non- weightbearing and she should sleep in the boot for now. She should always have the boot on when up and about. A couple of times a day she can take the boot off and work at gentle ankle ROM. Will keep previously scheduled appointment. Repeat x-rays at that time. Sean Kat, am scribing for Dr. Liu Tilley, while he is personally performing the service. 10/26/2017 13:02 Cc: Jean Munoz Cc: Alexander documented in this encounter Plan of Treatment Upcoming Encounters Date Type Department Care Team (Late st Contact Info) Description 06/29/2024 14:15 EDT Office Visit [facility] [address] [place] [address] Jean Munoz MD [address] [place] [phone] documented as of this encounter [...] colon documented in this encounter Care Teams Dna Sequencing Associate Relationship Specialty Start Date End Date Jean Munoz MD [address] [place] [phone] PCP - General 12/31/08 Manny Rizzo MD [address] [place] [address] 04/20/10 documented as of this encounter
--- OUTSIDE RECORDS SUMMARY | 2024-06-10 07:19 | XMS_ITS | Encounter Summary ---
Author Organization [facility] Address [address] [place] [address] Care Team Providers Care Manager Trust Name Role Phone Jean Munoz MD Primary Care Provider Manny Rizzo MD Unavailable Reason for Visit * Reason Onset Date Comments Orders (Non Pre-visit) 10/06/2017 Encounter Details Date Type Department Care Team (Late st Contact Info) Description 10/06/2017 Orders Only [facility] Foot & Ankle Program - [address] [place], [place] [phone] Astrid Roberts LPN [address] [place] [address] Posterior tibial tendon dysfunction, right (Primary Dx); Ankle arthritis Social History Tobacco Use Types Packs/Day Years [...] No 12/27/2016 documented as of this encounter Plan of Treatment Upcoming Encounters Date Type Department Care Team (Late st Contact Info) Description 06/29/2024 14:15 EDT Office Visit [facility] [address], [place] [phone] Jean Munoz MD [address] [place] [phone] documented as of this encounter Visit Diagnoses Diagnosis Posterior tibial tendon dysfunction, right- Primary Ankle arthritis Unspecified arthropathy, ankle and foot Screening for osteoporosis- Primary Special screening for [...] Orde red Date GENERIC DME ORDER 1 10/06/2017 documented in this encounter Care Teams Manager Trust Relationship Specialty Start Date End Date Jean Munoz MD [address] [place] [phone] PCP - General 12/31/08 Manny Rizzo MD [address] [place] [address] 04/20/10 documented as of this encounter
--- OUTSIDE RECORDS SUMMARY | 2024-06-10 07:19 | XMS_ITS | Encounter Summary ---
Author Organization [facility] Address [address] [place] [address] Care Team Providers Care Geophysical Data Technician Name Role Phone Jean Munoz MD Primary Care Provider Manny Rizzo MD Unavailable Reason for Visit * Reason Onset Date Comments Medications Refill 10/19/2017 Encounter Details Date Type Department Care Team (Late st Contact Info) Description 10/19/2017 Telephone [facility] - [address] [id number] Tiana Bacon [address] [place] [address] Medications Refill Social History Tobacco [...] 2 tabs by mouth in the morning. Earliest Fill Date: 10/19/17 60 Tab 10/19/2017 11/16/2017 methylphenidate HCl (RITALIN;METHYLIN) 10 mg tablet Take one tab in the afternoon for narcolepsy. Earliest Fill Date: 10/19/17 30 Tab 10/19/2017 11/16/2017 documented in this encounter Miscellaneous Notes * Telephone Encounter - Corrina Ac RN - 10/19/2017 1042 EST Spoke with patient and let her know her (methyphenidate ) prescriptions ready for spanish moss picker at the Sleep Program. * Telephone Encounter - Paula Ceballos - 10/19/2017 0829 EST Medication Refill Medication(s) Requested: Ritalin 10 and 20 mg tablets Pharmacy (reconcile pharmacy list): [place] Is patient out of medication? NO Picking up/mailing (location)/calling in/eprescribe? building supervisor 30 day supply/90 day supply? Paula Ceballos 10/19/20178:30 documented in this encounter Plan of Treatment Upcoming Encounters Date Type Department Care Team (Late st Contact Info) Description 06/29/2024 14:15 EDT Office Visit [address] [place] [address] Jean Munoz MD [address] [place] [address] documented as of this encounter Visit Diagnoses Not on filedocumented in this encounter Discontinued Medications Medication Sig Discontinue Reason Start Date End Da te methylphenidate HCl (RITALIN;METHYLIN) 10 mg tablet Take one tab in the afternoon for narcolepsy. Earliest Fill Date: 09/21/17 Reorder 09/21/2017 10/19/2017 methylphenidate HCl (RITALIN;METHYLIN) 20 mg tablet Take 2 tabs by mouth in the morning. Reorder 09/21/2017 10/19/2017 documented as of this encounter Care Teams Geophysical Data Technician Relationship Specialty Start Date End Date Jean Munoz MD [address] [place] [phone] PCP - General 12/31/08 Manny Rizzo MD [address] [place] [phone] 04/20/10 documented as of this encounter
--- OUTSIDE RECORDS SUMMARY | 2024-06-10 07:19 | XMS_ITS | Encounter Summary ---
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 * Telephone Encounter - Jean Munoz MD - 08/19/2017 1019 EST escript done, please notify patient, thanks * Telephone Encounter - Lizz Negro RN - 08/19/2017 1003 EST Medication(s) Requested: spiriva respimat 1.25 mcg/actuation inhaler Preferred Pharmacy: [facility] Is patient out of medication? Unknown Last Refill Date: historical Last Visit Date with Ordering Provider: 06/29/17 Next Non-Acute Visit Date Scheduled with Care Team: Yes. 09/22/17 LIZZ NEGRO RN 08/19/2017 10:06 documented in this encounter Plan of Treatment Upcoming Encounters Date Type Department Care Team (Late st Contact Info) Description 06/29/2024 14:15 EDT Office Visit [facility] [address] [place] [address] Jean Munoz MD [address] [place] [phone] documented as of this encounter Visit Diagnoses [...] onic obstructive pulmonary disease, unspecified COPD type ([facility]-CMS) 2 inhalations (2.5mcg) daily as directed Reorder 08/19/2017 08/19/2017 documented as of this encounter Care Teams Woodworking Shop Hand Relationship Specialty Start Date End Date Jean Munoz MD [address] [place] [phone] PCP - General 12/31/08 Manny Rizzo MD [address] [place] [address] 04/20/10 documented as of this encounter
--- OUTSIDE RECORDS SUMMARY | 2024-06-10 07:19 | XMS_ITS | Encounter Summary ---
Author Organization [facility] Address [address] [place] [address] Care Team Providers Care Shoe Worker Name Role Phone Jean Munoz MD Primary Care Provider Manny Rizzo MD Unavailable Encounter Details Date Type Department Care Team (Late st Contact Info) Description 09/22/2017 Results Only Imaging [facility] 3 [place] [address] Jean Munoz MD [address] [place] [address] Social History Tobacco Use Types [...] Visit [facility] [address] [place], [place] [phone] Jean Munoz MD [address] [place] [phone] documented as of this encounter Visit Diagnoses Not on filedocumented in this encounter Care Teams Shoe Worker Relationship Specialty Start Date End Date Jean Munoz MD [address] [place] [phone] PCP - General 12/31/08 Manny Rizzo MD [address] [place] [address] 04/20/10 documented as of this encounter
--- OUTSIDE RECORDS SUMMARY | 2024-06-10 07:19 | XMS_ITS | Encounter Summary ---
Author Organization [facility] Address [address] [place] [address] Care Team Providers Care Seismology Technical Officer Name Role Phone Jean Munoz MD Primary Care Provider Manny Rizzo MD Unavailable Encounter Details Date Type Department Care Team (Late st Contact Info) Description 09/02/2017 [facility] [address] [place] [address] Jean Munoz MD [address] [place] [address] Social History Tobacco Use Types [...] [facility] [address] [place] [address] Jean Munoz MD [address] [place] [phone] documented as of this encounter Visit Diagnoses Not on filedocumented in this encounter Care Teams Seismology Technical Officer Relationship Specialty Start Date End Date Jean Munoz MD [address] [place] [phone] PCP - General 12/31/08 Manny Rizzo MD [address] [place] [phone] 04/20/10 documented as of this encounter
--- OUTSIDE RECORDS SUMMARY | 2024-06-10 07:19 | XMS_ITS | Encounter Summary ---
Author Organization [facility] Address [address] [place] [address] Care Team Providers Care Sales Management Intern Name Role Phone Jean Munoz MD Primary Care Provider Manny Rizzo MD Unavailable Reason for Visit * Reason Onset Date Comments Coordination Of Care 10/11/2017 Encounter Details Date Type Department Care Team (Late st Contact Info) Description 10/11/2017 Telephone [facility] [address] [place] [address] Jean Munoz MD [address] [place] [phone] Coordination Of Care Social History [...] Telephone Encounter - Jean Munoz MD - 10/11/2017 1646 EST noted * Telephone Encounter - Kavita Adames - 10/11/2017 1450 EST Reason for Call: No chief complaint on file. Summary/Symptoms: Pt has order for PT and also request for correction to assess pain level. Physical therapist can do this so they would like to drop the correction request from the order. Please advise. Onset and Duration? Appointment Offered? Kavita 10/11/2017 14:50 documented in this encounter Plan of Treatment Upcoming Encounters Date Type Department Care Team (Late st Contact Info) Description 06/29/2024 14:15 EDT Office Visit [facility] [address] [place], [place] [phone] Jean Munoz MD [address] [place] [address] documented as of this encounter Visit Diagnoses Not on filedocumented in this encounter Care Teams Sales Management Intern Relationship Specialty Start Date End Date Jean Munoz MD [address] [place] [phone] PCP - General 12/31/08 Manny Rizzo MD [address] [place] [address] 04/20/10 documented as of this encounter
--- OUTSIDE RECORDS SUMMARY | 2024-06-10 07:19 | XMS_ITS | Encounter Summary ---
Author Organization [facility] Address [address] [place] [address] Care Team Providers Care Stamping Machine Operator Name Role Phone Jean Munoz MD Primary Care Provider Manny Rizzo MD Unavailable Reason for Visit * Reason Onset Date Comments Pre-procedure 09/27/2017 Encounter Details Date Type Department Care Team (Late st Contact Info) Description 09/27/2017 Pre-Procedure Orders Encounter [facility] - [address] [place], [place] [phone] Astrid Roberts LPN [address] [place] [address] Posterior tibial tendon dysfunction, right (Primary Dx); [...] Office Visit [facility] [address] [place] [address] Jean Munoz MD [address] [place] [phone] documented as of this encounter Visit [...] colon documented in this encounter Care Teams Stamping Machine Operator Relationship Specialty Start Date End Date Jean Munoz MD [address] [place] [phone] PCP - General 12/31/08 Manny Rizzo MD [address] [place] [phone] 04/20/10 documented as of this encounter
--- OUTSIDE RECORDS SUMMARY | 2024-06-10 07:19 | XMS_ITS | Encounter Summary ---
Author Organization [facility] Address [address] [place] [address] Care Team Providers Care Machine Worker Name Role Phone Jean Munoz MD Primary Care Provider Manny Rizzo MD Unavailable Reason for Visit * Reason Onset Date Comments Other 12/17/2017 Encounter Details Date Type Department Care Team (Late st Contact Info) Description 12/17/2017 Telephone [facility] - [address] [address] Tiana Bacon [address] [place] [address] Other Social History Tobacco Use Types Packs/Day [...] * Telephone Encounter - Barbara Gimenez - 12/17/2017 0813 EDT Reason for Call: Other Call Detail: PT called saying that she is using nasal pillows right now, but she would like to switch to the nasal mask instead. Please send a script to [facility] for nasal mask. Last visit: 06/22/17 Next visit: 06/2018 Barbara Gimenez 12/17/2017 8:13 documented in this encounter Plan of Treatment Upcoming Encounters Date Type Department Care Team (Late st Contact Info) Description 06/29/2024 14:15 EDT Office Visit [facility] [address] [place] [address] Jean Munoz MD [address] [place] [phone] documented as of this encounter Visit Diagnoses [...] Orde red Date CPAP/BIPAP GENERAL ORDER 1 12/17/2017 documented in this encounter Care Teams Machine Worker Relationship Specialty Start Date End Date Jean Munoz MD [address] [place] [phone] PCP - General 12/31/08 Manny Rizzo MD [address] [place] [phone] 04/20/10 documented as of this encounter
--- OUTSIDE RECORDS SUMMARY | 2024-06-10 07:19 | XMS_ITS | Encounter Summary ---
Author Organization [facility] Address [address] [place] [address] Care Team Providers Care Lead Tinner Name Role Phone Jean Munoz MD Primary Care Provider Manny Rizzo MD Unavailable Reason for Visit * Reason Onset Date Comments Medications Refill 12/14/2017 Encounter Details Date Type Department Care Team (Late st Contact Info) Description 12/14/2017 Refill [facility] Sleep Program - [address] [address] Tiana Bacon [address] [place] [phone] Medications Refill Social History Tobacco Use [...] by mouth in the morning. 60 Tab 12/14/2017 01/11/2018 methylphenidate HCl (RITALIN;METHYLIN) 10 mg tablet Take one tab in the afternoon for narcolepsy. 30 Tab 12/14/2017 01/11/2018 documented in this encounter Miscellaneous Notes * Telephone Encounter - Corrina Ac RN - 12/14/2017 0859 EDT Spoke with patient and let her know her ritalin prescriptions sent to her pharmacy. * Telephone Encounter - Paula Ceballos - 12/14/2017 0832 EDT Medication Refill Medication(s) Requested: Ritalin 10mg/20mg Pharmacy (reconcile pharmacy list): Is patient out of medication? NO Picking up/mailing (location)/calling in/eprescribe? Please call when ready to burr picker 30 day supply/90 day supply? Paula Ceballos 12/14/20178:32 documented in this encounter Plan of Treatment Upcoming Encounters Date Type Department Care Team (Late st Contact Info) Description 06/29/2024 14:15 EDT Office Visit [address] [address] Jean Munoz MD [address] [place] [address] documented as of this encounter Visit Diagnoses Not on filedocumented in this encounter Discontinued Medications Medication Sig Discontinue Reason Start Date End Da te methylphenidate HCl (RITALIN;METHYLIN) 10 mg tablet Take one tab in the afternoon for narcolepsy. Earliest Fill Date: 11/16/17 Reorder 11/16/2017 12/14/2017 methylphenidate HCl (RITALIN;METHYLIN) 20 mg tablet Take 2 tabs by mouth in the morning. Reorder 11/16/2017 12/14/2017 documented as of this encounter Care Teams Lead Tinner Relationship Specialty Start Date End Date Jean Munoz MD [address] [place] [phone] PCP - General 12/31/08 Manny Rizzo MD [address] [place] [address] 04/20/10 documented as of this encounter
--- OUTSIDE RECORDS SUMMARY | 2024-06-10 07:19 | XMS_ITS | Encounter Summary ---
Author Organization [facility] Address [address] [place] [address] Care Team Providers Care Radio News Anchor Name Role Phone Jean Munoz MD Primary Care Provider Manny Rizzo MD Unavailable Reason for Visit * Reason Onset Date Comments Medications Refill 08/24/2017 Encounter Details Date Type Department Care Team (Late st Contact Info) Description 08/24/2017 Telephone [facility] Sleep Program - [address] [address] Tiana Bacon [address] [place] [address] Medications Refill Social History Tobacco [...] the afternoon for narcolepsy. Earliest Fill Date: 08/24/17 30 Tab 08/24/2017 09/21/2017 methylphenidate HCl (RITALIN;METHYLIN) 20 mg tablet Take 2 tabs by mouth in the morning. 60 Tab 08/24/2017 09/21/2017 documented in this encounter Miscellaneous Notes * Telephone Encounter - Corrina Ac RN - 08/24/2017 1245 EST Spoke with patient and let her know her (methylphenidate ) prescriptions ready for bean picker at the Sleep Program. * Telephone Encounter - Britney Tai - 08/24/2017 0828 EST Patient called, requested new Rx for methylphenidate 10 mg and 20 mg; would like the Rx available at the front man and she will pick it up. I explained will relay this to the nurse. documented in this encounter Plan of Treatment Upcoming Encounters Date Type Department Care Team (Late st Contact Info) Description 06/29/2024 14:15 EDT Office Visit [facility] [address] [place] [address] Jean Munoz MD [address] [place] [phone] documented as of this encounter Visit Diagnoses Not on filedocumented in this encounter Discontinued Medications Medication Sig Discontinue Reason Start Date End Da te methylphenidate HCl (RITALIN;METHYLIN) 20 mg tablet Take 2 tabs by mouth in the morning. Earliest Fill Date: 07/27/17 Reorder 07/27/2017 08/24/2017 methylphenidate HCl (RITALIN;METHYLIN) 10 mg tablet Take one tab in the afternoon for narcolepsy. Earliest Fill Date: 07/27/17 Reorder 07/27/2017 08/24/2017 documented as of this encounter Care Teams Radio News Anchor Relationship Specialty Start Date End Date Jean Munoz MD [address] [place] [phone] PCP - General 12/31/08 Manny Rizzo MD [address] [place] [address] 04/20/10 documented as of this encounter
--- OUTSIDE RECORDS SUMMARY | 2024-06-10 07:19 | XMS_ITS | Encounter Summary ---
Author Organization [facility] Address [address] [place] [id number] Care Team Providers Care Bundle Clerk Name Role Phone Jean Munoz MD Primary Care Provider Manny Rizzo MD Unavailable Reason for Referral * Referral (Routine/Next Available) - Closed Specialty Diagnoses / Procedures Referred By [facility] Referred To Contact Diagnoses Posterior tibial tendonitis, right Preop examination Jean Munoz MD [address] [place] [phone] [facility], [address] [address] Referral ID Status Reason Start Date Expiration Date V isits Requested Visits Authorized [id number] Closed Specialty Services Required 10/01/2017 1 1 Question Answer I certify that this patient is under my care and that I, or another Medicare allowed practitioner (DO OPAL, RICKEY) working with me, had a [id number] encounter with this patient on this date: 09/22/2017 I further certify that the [id number] encounter was in whole or in part related to the reason the patient needs home health care. Yes The discharge summary or progress note will provide further details that support the need for the home health services and the plan of care. Yes Enter the allowed practitioner (, DO, RICKEY) who will provide oversight of this patient's home heatlh care needs and plan of care Alexander The patient? s homebound status is related to the following diagnoses, illness or condition (describe): pending surgery 10/11/17 The patient has a condition due to an illness or injury that restricts the ability to leave home except with: The assistance or supervision of another person, Assistive device Assistive device Wheelchair Leaving the home is medically contraindicated due to (reason 1): Post surgical restrictions or conditions Leaving home requires a considerable and taxing effort with mobility limited by the following (criteria 1): Post surgical or post procedure restrictions limit ambulation and activity Nursing skilled care requested: Nursing asessment, Physical Therapy [facility] assessment needed related to this encounter: Pain Control, Post Surgical Physical therapy is needed for: Evaluation, Post Surgical Scheduling Comments (optional ? describe specific scheduling needs if applicable): after 10/11 but would like wheelchair LAUREN Reason for Visit * Reason Comments Pre-op Exam 10/11/2017 Excision o f the posterior tibial tendon with transposition of the FDL tendon, as well as calcaneal osteotomy Encounter Details Date Type Department Care Team (Late st Contact Info) Description 09/22/2017 13:00 EST Office Visit [facility] [address] [place] [address] Jean Munoz MD [address] [place] [phone] Preop examination (Primary Dx); Posterior tibial tendonitis, right; Traumatic arthritis of right ankle; Chronic pain syndrome; Chronic low back pain, unspecified back pain laterality, with sciatica presence unspecified; Chronic knee pain, unspecified laterality; Impaired glucose tolerance; Insomnia, unspecified type Social History Tobacco Use [...] Sign Reading Time Taken Comments Blood Pressure 124/76 09/22/2017 1304 EST Pulse 76 09/22/2017 1304 EST Temperature 36.8 ??C (98.2 ??F) 09/22/2017 1304 EST Respiratory Rate 16 09/22/2017 1304 EST Oxygen Saturation - - Inhaled Oxygen Concentration - - Weight 92.4 kg (203 lb 12.8 oz) 09/22/2017 1304 EST Height 162.6 cm (5' 4) 09/22/2017 1304 EST Body Mass Index 34.98 09/22/2017 1304 EST documented in this encounter Functional Status [...] needed for Sleep. Daily Max: 5 mg 28 Tab 2 09/30/2017 12/14/2017 traMADol (ULTRAM) 50 mg tabletIndications:Chronic pain syndrome Take 1 Tab by mouth every 6 hours as needed for up to 28 days for Pain. Daily Max: 200 mg 56 Tab 09/22/2017 10/20/2017 HYDROcodone-acetaminophen (NORCO) 5-325 mg tabletIndications:Chronic pain syndrome Take 1-2 Tabs by mouth every 6 hours as needed for up to 28 days for Pain. Earliest Fill Date: 09/13/17 Daily Max: 8 Tabs 112 Tab 09/23/2017 12/14/2017 HYDROcodone-acetaminophen (NORCO) 5-325 mg tabletIndications:Chronic pain syndrome Take 1-2 Tabs by mouth every 6 hours as needed for up to 28 days for Pain. Earliest Fill Date: 10/21/17 Daily Max: 8 Tabs 112 Tab 10/21/2017 12/14/2017 HYDROcodone-acetaminophen (NORCO) 5-325 mg tabletIndications:Chronic pain syndrome Take 1-2 Tabs by mouth every 6 hours as needed for up to 28 days for Pain. Earliest Fill Date: 11/18/17 Daily Max: 8 Tabs 112 Tab 11/18/2017 12/14/2017 documented in this encounter Progress Notes * Jean Munoz MD - 09/22/2017 1300 EST Preoperative H&P Patient ID: Liset Viera is an 56 y.o. female. :1960 Date of Service: 10/01/2017 Chief Complaint: Chief Complaint Patient presents with ??? Pre-op Exam 10/11/2017 Excision of the posterior tibial tendon with transposition of the FDL tendon, as well as calcaneal osteotomy Planned Procedure: Excision of the right posterior tibial tendon with transposition of the FDL tendon, as well as calcaneal osteotomy Surgeon: Dr Tilley Planned Procedure Date: 10/11/2017 Problem List Available or Initiated: yes Subjective: HISTORY OF PRESENT ILLNESS: Liset is a 56 year old female with history of ankle fracture Has had more pain in last 4-5 months MRI scan done in June 2017 demonstrated degenerative posterior tibial tendon, with longitudinal tears and surrounded by inflammation. There is anterior ankle spurring at the tibiotalar joint Current pain variable, worse when on feet a lot Using hydrocodone for back and knees Out tomorrow , need refill Daughter recently recently diagnosed endometrial cancer Known COPD/asthma, doing well, no dyspnea or cough, followed by Pulmonology Was prescribed tramadol, also out, taking 2 /day Cardiovascular or pulmonary risk factors: asthma or COPD Prior h/o of anesthetic complications: no Prior h/o bleeding problems: no Prior h/o DVT/PE: no Prior h/o infections (VRE, MRSA): no Reaction to tape or latex: no Family history of anesthetic complications, bleeding problems or DVT/PE: no. Patient Active Problem List Diagnosis ??? Severe major depression without psychotic features (CMS-HCC) ??? Gastroesophageal reflux disease ??? Chronic back [...] to internal orthopedic device, implant, and graft (CMS-HCC) ??? Degeneration of lumbar or lumbosacral intervertebral disc ??? Hesitancy ??? Dizziness ??? Wears eyeglasses ??? Chronic fatigue ??? Panlobular emphysema (CMS-HCC) ??? Blurry vision, bilateral ??? Pyogenic granuloma of eyelid ??? Other disorders of eyelid ??? Fibromyalgia ??? Nausea ??? Steroid-induced hyperglycemia ??? KATJA (obstructive sleep apnea) ??? Posterior tibial tendonitis, right ??? Traumatic arthritis of right ankle ??? Chronic use of opiate for therapeutic purpose Past Medical History: Diagnosis Date ??? Abdominal [...] of leg 12/31/2009 ??? Emphysema of lung (CMS-HCC) ??? Environmental allergies ??? Fever, unspecified 08/26/04 [...] ANKLE FRACTURE SURGERY 04/01/10 left ankle ORIF [facility] ??? CERVICAL SPINE SURGERY 12/31/08 discectomy, [...] Smoking status: Former Smoker Packs/day: 1.50 Years: 52.50 Types: Cigarettes Start date: 09/13/1975 Quit date: [...] Degeneration Neg Hx ??? Blindness Neg Hx Allergies Allergen Reactions ??? Toradol [Ketorolac Tromethamine] Hives ??? Motrin [Ibuprofen] Itching Current Outpatient Prescriptions Medication Sig Dispense Refill ??? amLODIPine (NORVASC) 5 mg tablet Take 1 Tab by mouth daily. 90 Tab 3 ??? blood glucose (BLOOD GLUCOSE TEST) test strips 1 Strip by misc (non-drug; combo route) route 2 times daily. 100 Each 1 ??? Ciclesonide 50 mcg spray,non-aerosol 1 spray each nostril daily 37.5 g 1 ??? cycloSPORINE (RESTASIS) 0.05 % ophthalmic emulsion Place 1 Drop into both eyes 2 times daily ??? docusate sodium (COLACE) 100 mg capsule Take 1 Cap by mouth 2 times daily as needed for Constipation. ??? [START ON 10/15/2017] doxycycline (VIBRAMYCIN) 100 mg capsule TAKE 1 CAPSULE BY MOUTH EVERY DAY 90 Cap 1 ??? fexofenadine (JUDITH) 180 mg tablet Take 1 Tab by mouth daily. 90 Tab 3 ??? fluticasone-salmeterol (ADVAIR HFA) 115-21 mcg/actuation inhaler Inhale 1 Puff as directed 2 times daily. 1 Inhaler 11 ??? [START ON 11/18/2017] HYDROcodone-acetaminophen (NORCO) 5-325 mg tablet Take 1-2 Tabs by mouth every 6 hours as needed for up to 28 days for Pain. Earliest Fill Date: 11/18/17 Daily Max: 8 Tabs 112 Tab 0 ??? [START ON 10/21/2017] HYDROcodone-acetaminophen (NORCO) 5-325 mg tablet Take 1-2 Tabs by mouth every 6 hours as needed for up to 28 days for Pain. Earliest Fill Date: 10/21/17 Daily Max: 8 Tabs 112 Tab 0 ??? HYDROcodone-acetaminophen (NORCO) 5-325 mg tablet Take 1-2 Tabs by mouth every 6 hours as needed for up to 28 days for Pain. Earliest Fill Date: 09/13/17 Daily Max: 8 Tabs 112 Tab 0 ??? hydroxypropyl methylcellulose (ISOPTO TEARS) 0.5 % ophthalmic solution Place 1 Drop into both eyes 5 times daily. ??? ipratropium-albuterol (DUONEB) 0.5 mg-3 mg(2.5 mg base)/3 mL nebulizer solution Take 3 mL by nebulization every 4 hours as needed for Wheezing. 3 mL 3 ??? lancets Brand: One Touch Delica 100 Each 2 ??? methylphenidate HCl (RITALIN;METHYLIN) 20 mg tablet Take 2 tabs by mouth in the morning. 60 Tab0 ??? methylphenidate HCl (RITALIN;METHYLIN) 10 mg tablet Take one tab in the afternoon for narcolepsy. Earliest Fill Date: 09/21/17 30 Tab 0 ??? montelukast (SINGULAIR) 10 mg tablet TAKE 1 TABLET BY MOUTH EVERY DAY 90 Tab 4 ??? naloxone (NARCAN) 4 mg/actuation nasal spray 1 [place] by nasal route as needed for Opioid Reversal. 1 Each 0 ??? omeprazole (PRILOSEC) 40 mg capsule Take 1 Cap by mouth daily. 90 Cap 3 ??? ondansetron (ZOFRAN) 4 mg tablet TAKE ONE TABLET BY MOUTH DAILY NEEDED for nausea 30 Tab 3 ??? pregabalin (LYRICA) 300 mg capsule TAKE ONE CAPSULE BY MOUTH TWICE DAILY. daily max: 2 caps (600mg) 60 Cap 5 ??? promethazine (PHENERGAN) 25 mg tablet Take 1 Tab by mouth every 6 hours as needed for Nausea. 20 Tab 3 ??? [START ON 10/15/2017] roflumilast (DALIRESP) 500 mcg tablet Take 1 Tab by mouth daily. 90 Tab 1 ??? rOPINIRole (REQUIP) 2 mg tablet TAKE 1 TABLET BY MOUTH NIGHTLY AT BEDTIME 90 Tab 4 ??? sertraline (ZOLOFT) 100 mg tablet TAKE TWO TABLETS BY MOUTH DAILY 180 Tab 4 ??? sumatriptan (IMITREX) 50 mg tablet take 1 tablet by mouth as needed for migraine *daily limit 2tab 9 Tab 5 ??? tamsulosin (FLOMAX) 0.4 mg capsule Take 1 Cap by mouth daily. 90 Cap 3 ??? tiotropium bromide (SPIRIVA RESPIMAT) 1.25 mcg/actuation inhaler 2 inhalations (2.5mcg) daily as directed 12 g 2 ??? traMADol (ULTRAM) 50 mg tablet Take 1 Tab by mouth every 6 hours as needed for up to 28 days for Pain. Daily Max: 200 mg 56 Tab 0 ??? XOPENEX HFA 45 mcg/actuation inhaler INHALE TWO PUFFS BY MOUTH EVERY SIX HOURS NEEDED 45 g 5 ??? zolpidem (AMBIEN) 5 mg tablet Take 1 Tab by mouth at bedtime as needed for Sleep. Daily Max: 5 mg 28 Tab 2 No current facility-administered medications for this visit. ROS see form Objective: BP 124/76 (BP Cuff Location: Left arm) Pulse 76 Temp 36.8 ??C (98.2 ??F) (Tympanic) Resp 16 Ht 162.6 cm (64) Wt 92.4 kg (203 lb 12.8 oz) LMP 01/11/1987 BMI 34.98 kg/m2 Body mass index is 34.98 kg/(m^2). Physical Exam Constitutional: She is oriented to person, place, and time. She appears well- developed and well-nourished. overweight HENT: Head: Normocephalic and atraumatic. Right Ear: Tympanic membrane and external ear normal. Left Ear: Tympanic membrane and external ear normal. Nose: Nose normal. No nasal discharge. Mouth/Throat: Oropharynx is clear and moist. Mucous membranes are moist. Dentition is normal. No tonsillar exudate. Oropharynx is clear. Eyes: Conjunctivae and EOM are normal. Pupils are equal, round, and reactive to light. Right eye exhibits no discharge. Left eye exhibits no discharge. Scleral icterus is present. Glasses Neck: Normal range of motion. Neck supple. No thyromegaly present. Cardiovascular: Normal rate, regular rhythm, normal heart sounds and intact distal pulses. No murmur heard. Pulmonary/Chest: Effort normal and breath sounds normal. No respiratory distress. She has no wheezes. She exhibits no retraction. Abdominal: Soft. Bowel sounds are normal. She exhibits no distension and no mass. There is no hepatosplenomegaly. There is no tenderness. There is no rebound and no guarding. Musculoskeletal: Normal range of motion. She exhibits no edema. Lymphadenopathy: She has no cervical adenopathy. Neurological: She is alert and oriented to person, place, and time. She has normal reflexes. No cranial nerve deficit. Skin: Skin is warm and dry. No rash noted. Psychiatric: Her behavior is normal. Nursing note and vitals reviewed. EKG: deferred Assessment: 1. Preop examination 2. Posterior tibial tendonitis, right 3. Traumatic arthritis of right ankle 4. Chronic pain syndrome 5. Chronic low back pain, unspecified back pain laterality, with sciatica presence unspecified 6. Chronic knee pain, unspecified laterality 7. Impaired glucose tolerance 8. Insomnia, unspecified type Right ankle pain, low risk procedure, low cardiac risk Asthma/COPD well controlled Chronic pain, needs refill of hydrocodone and tramadol Insomna - refill of Ambien IGT recheck A1C Plan: Liset was seen today for pre-op exam. Diagnoses and all orders for this visit: Preop examination Posterior tibial tendonitis, right Traumatic arthritis of right ankle Surgery pending May need VNA post op, also asks for wheelchair, will do referral Chronic pain syndrome - HYDROcodone-acetaminophen (NORCO) 5-325 mg tablet; Take 1-2 Tabs by mouth every 6 hours as neededfor up to 28 days for Pain. Earliest Fill Date: 11/18/17 Daily Max: 8 Tabs - HYDROcodone-acetaminophen (NORCO) 5-325 mg tablet; Take 1-2 Tabs by mouth every 6 hours as neededfor up to 28 days for Pain. Earliest Fill Date: 10/21/17 Daily Max: 8 Tabs - HYDROcodone-acetaminophen (NORCO) 5-325 mg tablet; Take 1-2 Tabs by mouth every 6 hours as neededfor up to 28 days for Pain. Earliest Fill Date: 09/13/17 Daily Max: 8 Tabs - traMADol (ULTRAM) 50 mg tablet; Take 1 Tab by mouth every 6 hours as needed for up to 28 days forPain. Daily Max: 200 mg (script don for 28 days, hopefully will need less after surgery) Chronic low back pain, unspecified back pain laterality, with sciatica presence unspecified Chronic knee pain, unspecified laterality Stable as above Impaired glucose tolerance - Hemoglobin A1c (future); Future Insomnia, unspecified type - zolpidem (AMBIEN) 5 mg tablet; Take 1 Tab by mouth at bedtime as needed for Sleep. Daily Max: 5 mg A BritelyMS([place] Prescription Monitoring System) report on this patient was printed and reviewed today to ensure the prescribing and dispensing of their medications is in accordance with the treatment plan. COMM done today Patient requires endocarditis prophylaxis (see guideline summary below): no. Perioperative beta-ricki recommendation (see guideline summary below): no - betablocker not indicated. GENERAL PREOP INSTRUCTIONS: Proceed with surgery as planned. No food or liquids the morning of surgery. Call surgeon if develops respiratory illness, fever, or other illness. Jean Munoz MD 10/01/2017 14:55 SUMMARY OF GUIDELINES: Endocarditis prophylaxis indications: Antibiotics are indicated for prosthetic heart materials (notroutine MVP), uncorrected congenital heart anomalies, history of endocarditis; and only for surgeries of mouth, respiratory tract, or infected tissue. Options for a one-time oral dose of antibiotic taken 30 - 60 minutes prior to the procedure include amoxicillin 2 grams, clindamycin 600 mg, or azithromycin 500 mg. Guideline Title: Prevention of Infective Endocarditis Guidelines From the [place] [employer]: A Guideline From the [place] [employer] Rheumatic Fever, Endocarditis, and Kawasaki Disease Committee, [place] on Cardiovascular Disease in the [place], and the [place] on Clinical Cardiology, [place] on Cardiovascular Surgery and Anesthesia, and the Quality of Care and Outcomes Research Interdisciplinary Working Group. Please see Circulation. 2007;116:4410-9153 for the detailed indications. Michelle-operative betablocker (BB) indications: For patients already on BB for angina, arrhythmia, or HTN continue the BB (Class I). For patients not on BB, consider adding 1 week prior to surgery for vascular surgery in patients with CAD or multiple risk factors; or CHD or multiple risk factors undergoing intermediate - to high-risk procedures (Class IIa). Consider continuing the BB 2-4 weeks post-operatively. Otherwise, starting a perioperative betablocker may be harmful. Guideline Title: 2009 ACCF/AHA focused update on perioperative beta blockade incorporated into the ACC/AHA 2007 guidelines on perioperative cardiovascular evaluation and care for noncardiac surgery. A report of the [place] [employer] Foundation/[place] [employer] Task Force on Practice Guidelines. Please see J Am Edilberto Cardiol. 2008; Aug 06;54(22):x00-j544 for the detailed indications. documented in this encounter Plan of Treatment Upcoming Encounters Date Type Department Care Team (Late st Contact Info) Description 06/29/2024 14:15 EDT Office Visit [address] [address] Jean Munoz MD [address] [place] [phone] Scheduled Referrals Name Type Priority Associated Diagnoses Orde r Schedule AMB CONS/FOLLOW UP HOME HEALTH SERVICES Outpatient Referral Routine Posterior tibial tendonitis, right Preop examination Ordered: 10/01/2017 documented as of this encounter Visit Diagnoses Diagnosis Preop examination- Primary Preoperative examination, unspecified Posterior tibial tendonitis, right Traumatic arthritis of right ankle Chronic pain syndrome Chronic low back pain, unspecified back pain laterality, with sciatica presence unspecified Chronic knee pain, unspecified laterality Impaired glucose tolerance Impaired glucose tolerance test Insomnia, unspecified type Screening for osteoporosis- Primary [...] for up to 28 days for Pain. Earliest Fill Date: 08/26/17 Daily Max: 8 Tabs Reorder 08/26/2017 09/22/2017 HYDROcodone-acetaminophe n (NORCO) 5-325 mg tabletIndications:Chroni c pain syndrome Take 1-2 Tabs by mouth every 6 hours as needed for up to 28 days for Pain. Earliest Fill Date: 07/29/17 Daily Max: 8 Tabs Reorder 07/29/2017 09/22/2017 HYDROcodone-acetaminophe n (NORCO) 5-325 mg tabletIndications:Chroni c pain syndrome Take 1-2 Tabs by mouth every 6 hours as needed for up to 28 days for Pain. Earliest Fill Date: 06/29/17 Daily Max: 8 Tabs Reorder 07/01/2017 09/22/2017 traMADol (ULTRAM) 50 mg tabletIndications:Chroni c pain syndrome Take 1 Tab by mouth every 6 hours as needed for up to 28 days for Pain. Daily Max: 200 mg Reorder 07/01/2017 09/22/2017 zolpidem (AMBIEN) 5 mg tabletIndications:Insomn ia, unspecified type TAKE ONE TABLET BY MOUTH NIGHTLY AT BEDTIME NEEDED FOR sleep *daily limit 1 tablet Reorder 09/02/2017 09/22/2017 documented as of this encounter Care Teams Bundle Clerk Relationship Specialty Start Date End Date Jean Munoz MD [address] [place] [phone] PCP - General 12/31/08 Manny Rizzo MD [address] [place] [phone] 04/20/10 documented as of this encounter
--- OUTSIDE RECORDS SUMMARY | 2024-06-10 07:19 | XMS_ITS | Encounter Summary ---
Author Organization [facility] Address [address] [place] [address] Care Team Providers Care Central Office Inspector Name Role Phone Jean Munoz MD Primary Care Provider Manny Rizzo MD Unavailable Reason for Visit * Reason Onset Date Comments Home Health 10/04/2017 Encounter Details Date Type Department Care Team (Late st Contact Info) Description 10/04/2017 Telephone [facility] [address] [place] [address] Jean Munoz MD [address] [place] [phone] Home Health Social History Tobacco Use Types Packs/Day Years [...] Telephone Encounter - Jean Munoz MD - 10/06/2017 1017 EST Noted, please let patient know, thanks * Telephone Encounter - Kavita Baxter - 10/04/2017 1555 EST Reason for Call: Home Health Summary/Symptoms: Per Melania- received order for wheelchair eval. This is usually done after surgery, not before. Insurance will not cover. They are happy to see her after surgery for the wheelchair eval Onset and Duration? Appointment Offered? No Kavita Baxter 10/04/2017 15:56 documented in this encounter Plan of Treatment Upcoming Encounters Date Type Department Care Team (Late st Contact Info) Description 06/29/2024 14:15 EDT Office Visit [facility] [address] [place] [address] Jean Munoz MD [address] [place] [phone] documented as of this encounter Visit Diagnoses Not on filedocumented in this encounter Care Teams Central Office Inspector Relationship Specialty Start Date End Date Jean Munoz MD [address] [place] [phone] PCP - General 12/31/08 Manny Rizzo MD [address] [place] [phone] 04/20/10 documented as of this encounter
--- OUTSIDE RECORDS SUMMARY | 2024-06-10 07:19 | XMS_ITS | Encounter Summary ---
Author Organization [facility] Address [address] [place] [address] Care Team Providers Care Program Or Project Administrator Name Role Phone Jean Munoz MD Primary Care Provider Manny Rizzo MD Unavailable Reason for Referral * PT/OT/ST (Routine) - New Request Specialty Diagnoses / Procedures Referred By Alex weldon Referred To Contact Diagnoses Foot pain, right Liu Tilley MD [address] [place] [phone] Referral ID Status Reason Start Date Expiration Date Visits Requested Visits Authorized [id number] New Request Specialty Services Required 11/25/2017 1 1 Question Answer Reason for Request: Posterior tibial tendon reconstruction with FDL transfer and calcaneal osteotomy Comments ROM, Strengthening, Proprioception. WBAT and wean from boot to ASO brace. 2x per week for 6 weeks * Radiology Services (Routine) - New Request Specialty Diagnoses / Procedures Referred By Alex weldon Referred To Contact Diagnoses Foot pain, right Procedures FOOT 3 OR MORE VIEWS Liu Tilley MD [address] [place] [phone] Referral ID Status Reason Start Date Expiration Date V isits Requested Visits Authorized [id number] New Request 11/25/2017 1 1 Reason for Visit * Reason Comments Ankle Pain right Encounter Details Date Type Department Care Team (Late st Contact Info) Description 11/25/2017 10:15 EDT Office Visit [facility] - [address] [address] Liu Tilley MD [address] [place] [phone] Foot pain, right (Primary Dx) Discharge Disposition: Auto Discharge [...] as of this encounter Discharge Diagnoses Diagnosis M25.571 Pain in right ankle-M25.571[ICD-10-CM] M79.671 Pain in right foot-M79.671[ICD-10-CM] documented in this encounter Discharge Disposition Disposition Code Departure Means Destination Auto Discharge documented in this encounter Progress Notes * John Mike MD - 11/25/2017 1015 EDT PROCEDURE PERFORMED: Right calcaneus osteotomy and flexor digitorum longus to posterior tibial tendon transfer and removal of anterior ankle osteophytes on 10/11/2017. Liset Viera is a 56-year-old female who is status post the above procedures and is here for followup. She had been doing well since her previous visit; however, a few days ago she tripped and landed on her forefoot with an axial loading injury. Since then she has had increased pain over her medial foot as well as some pain over her midfoot. She denies any erythema or drainage from her incision and denies fevers or chills. She has otherwise been nonweightbearing, in her postop boot at this time. OBJECTIVE: General: NAD, A+O x3. Cardiovascular: Regular rate and rhythm. Lungs: No increased work of breathing. Right Lower Extremity: Incision clean, dry, and intact without erythema or evidence of dehiscence or drainage. Minimally tender to palpation over the medial and lateral ankle and tender to palpation over the navicular as well as over the midfoot; 5/5 strength with foot dorsiflexion, plantarflexion,adduction, and abduction; SILT to S/S/T; decreased sensation over the DP and SP distributions; 2+ PT and DP. IMAGING: New x-rays of the right ankle and foot were performed today and independently reviewed. There appears to be a small fracture through the bone tunnel of the navicular where the tendon transfer was attached. There are no other fractures or deformities over the Lisfranc joint of the foot or the ankle. ASSESSMENT AND PLAN: Liset Viera is status post the above procedure and at this time has a small fracture through the navicular bone tunnel at the site of her tendon transfer. She continues to have 5/5 strength with adduction and, given she is now 6 weeks out, the transfer has likely healed. The fracture is likely only going to cause pain and will not cause any damage to her soft-tissue procedures. She should transfer into a lace-up brace when not ambulating and use her boot for ambulation only. She may be weightbearing as tolerated. We will give her 2 weeks for the pain to subside and inflammation to heal, after which she should begin physical therapy for range of motion, strengthening, and proprioception. She should follow up in 6 weeks with x-rays of her right foot. John Mike MD 11/27/2017 9:27 * Liu Tilley MD - 11/25/2017 1015 EDT Attestation statement: I saw and examined the patient with the resident/fellow. I agree with the findings and plan of care documented in the resident's/fellow's note. documented in this encounter Plan of Treatment Upcoming Encounters Date Type Department Care Team (Late st Contact Info) Description 06/29/2024 14:15 EDT Office Visit [facility] [address] [place] [address] Jean Munoz MD [address] [place] [phone] Scheduled Referrals Name Type Priority Associated Diagnoses Orde r Schedule AMB CONS/FOLLOW UP PHYSICAL THERAPY Outpatient Referral Routine Foot pain, right Ordered: 11/25/2017 documented as of this encounter Procedures Procedure Name Priority Date/Time Associated Diagnosis Comments FOOT 3 OR MORE VIEWS Routine 11/25/2017 12:01 EDT Foot pain, right documented in this encounter Results * FOOT 3 OR MORE VIEWS (11/25/2017 12:01 EDT) Anatomical Region Laterality Modality Other 11/25/2017 12:0 1 EDT 11/25/2017 14:10 EDT Narrative 11/25/2017 14:10 EDT FOOT 3 OR MORE VIEWS ??11/25/2017 12:01 PM Signs and Symptoms/Comments: ?? M79.671-Pain in right foot-ICD-10; fall, midfoot pain COMPARISON: 04/06/2017 and 02/12/2020 06/02/2018 FINDINGS: Three weightbearing views of the right foot demonstrate apparent healing of the calcaneal osteotomy. The cannulated lag screw crossing it is intact. The arch and forefoot alignment are normal. The foot is demineralized. There is osteoarthrosis in the ankle joint. Procedure Note Malcolm Michele MD - 11/25/2017 FOOT 3 OR MORE VIEWS 11/25/2017 12:01 PM Signs and Symptoms/Comments: M79.671-Pain in right foot-ICD-10; fall, midfoot pain COMPARISON: 04/06/2017 and 02/12/2020 06/02/2018 FINDINGS: Three weightbearing views of the right foot demonstrate apparent healing of the calcaneal osteotomy. The cannulated lag screw crossing it is intact. The arch and forefoot alignment are normal. The foot is demineralized. There is osteoarthrosis in the ankle joint. Liu Tilley MD IMG DIAGNOSTIC IM AGING ORDERABLES documented in this encounter Visit Diagnoses Diagnosis Foot pain, right- Primary Pain in limb Screening for osteoporosis- Primary Special screening for osteoporosis Primary narcolepsy without cataplexy Chronic pain syndrome Chronic low back pain Lumbago Chronic use of opiate for therapeutic purpose Pain medication agreement Encounter for long-term (current) use of other medications Screen for colon cancer Special screening for malignant neoplasms, colon documented in this encounter Care Teams Program Or Project Administrator Relationship Specialty Start Date End Date Jean Munoz MD [address] [place] [phone] PCP - General 12/31/08 Manny Rizzo MD [address] [place] [phone] 04/20/10 documented as of this encounter
--- OUTSIDE RECORDS SUMMARY | 2024-06-10 07:19 | XMS_ITS | Encounter Summary ---
Author Organization [facility] Address [address] [place] [address] Care Team Providers Care Communications Planner Name Role Phone Jean Munoz MD Primary Care Provider Manny Rizzo MD Unavailable Reason for Referral * Radiology Services (Routine) - New Request Specialty Diagnoses / Procedures Referred By [facility] Referred To Contact Diagnoses Ankle arthritis Posterior tibial tendon dysfunction, right Procedures ANKLE 3 OR MORE VIEWS Liu Tilley MD [address] [place] [phone] Referral ID Status Reason Start Date Expiration Date V isits Requested Visits Authorized [id number] New Request 11/25/2017 1 1 Reason for Visit * Reason Onset Date Comments Appointment Related 11/15/2017 Encounter Details Date Type Department Care Team (Late st Contact Info) Description 11/15/[address] [facility]le [facility] - [place] [address] [place] [address] Liu Tilley MD [address] [place] [phone] Ankle arthritis (Primary Dx); Posterior tibial tendon dysfunction, right Social History Tobacco Use Types Packs/Day Years [...] 14:15 EDT Office Visit [facility] [address] [place], [place] [phone] Jean Munoz MD [address] [place] [phone] documented as of this encounter Procedures Procedure Name Priority Date/Time Associated Diagnosis Comments ANKLE 3 OR MORE VIEWS Routine 11/25/2017 10:43 EDT Ankle arthritis Posterior tibial tendon dysfunction, right documented in this encounter Results * ANKLE 3 OR MORE VIEWS (11/25/2017 10:43 EDT) Anatomical Region Laterality Modality Other 11/25/2017 10:4 3 EDT 11/25/2017 11:07 EDT Narrative 11/25/2017 11:07 EDT ANKLE 3 OR MORE VIEWS ??11/25/2017 10:43 AM Signs and Symptoms/Comments: ?? M19.079-Primary osteoarthritis, unspecified ankle and foot-ICD-10 M21.41-Flat foot (pes planus) (acquired), right foot-ICD-10; ankle pain COMPARISON: 04/06/2017 and 10/11/2017 FINDINGS: Three nonweightbearing views of the right ankle demonstrate nearly complete healing of the calcaneal osteotomy. The cannulated cancellous lag screw is intact and calcaneal pitch looks normal. Osteoarthrosis is present in the tibiotalar and fibulotalar joints. Diffuse demineralization is presumably due to disuse. Procedure Note Malcolm Michele MD - 11/25/2017 ANKLE 3 OR MORE VIEWS 11/25/2017 10:43 AM Signs and Symptoms/Comments: M19.079-Primary osteoarthritis, unspecified ankle and foot-ICD-10 M21.41-Flat foot (pes planus) (acquired), right foot-ICD-10; ankle pain COMPARISON: 04/06/2017 and 10/11/2017 FINDINGS: Three nonweightbearing views of the right ankle demonstrate nearly complete healing of the calcaneal osteotomy. The cannulated cancellous lag screw is intact and calcaneal pitch looks normal. Osteoarthrosis is present in the tibiotalar and fibulotalar joints. Diffuse demineralization is presumably due to disuse. Liu Tilley MD IMG DIAGNOSTIC IM AGING ORDERABLES documented in this encounter Visit Diagnoses Diagnosis Ankle arthritis- Primary Unspecified arthropathy, ankle and foot Posterior tibial tendon dysfunction, right Screening for osteoporosis- Primary Special screening for osteoporosis Primary narcolepsy without cataplexy Chronic pain syndrome Chronic low back pain Lumbago Chronic use of opiate for therapeutic purpose Pain medication agreement Encounter for long-term (current) use of other medications Screen for colon cancer Special screening for malignant neoplasms, colon documented in this encounter Care Teams Communications Planner Relationship Specialty Start Date End Date Jean Munoz MD [address] [place] [phone] PCP - General 12/31/08 Manny Rizzo MD [address] [place] [phone] 04/20/10 documented as of this encounter
--- OUTSIDE RECORDS SUMMARY | 2024-06-10 07:19 | XMS_ITS | Encounter Summary ---
Author Organization [facility] Address [address] [place] [address] Care Team Providers Care Continuity Coordinator Name Role Phone Jean Munoz MD Primary Care Provider Manny Rizzo MD Unavailable Afia Valle MD Unavailable [phone] Jesi Leong WOOD VENEER TAPER Unavailable SaloJesi shanks WOOD VENEER TAPER Unavailable Reason for Visit * Reason Comments Other Encounter Details Date Type Department Care Team (Late st Contact Info) Description 10/20/2017 Refill [facility] Family Medicine [facility] [address] [place], [place] [phone] Jean Munoz MD [address] [place] [phone] Other Social History Tobacco Use [...] Dispensed Refills Start Date End Da te traMADol (ULTRAM) 50 mg tabletIndications:Chronic pain syndrome TAKE ONE TABLET BY MOUTH EVERY SIX HOURS NEEDED FOR PAIN: daily max: 4 tabs (200mg) 56 Tab 10/21/2017 12/14/2017 documented in this encounter Miscellaneous Notes * Telephone Encounter - Jean Munoz MD - 10/21/2017 1041 EST Has had recent surgery so will refill by phone Script done, please call in to pharmacy and notify patient, thanks * Telephone Encounter - Lizz Ngero RN - 10/21/2017 1002 EST Medication(s) Requested: Tramadol 50 mg Preferred Pharmacy: [facility] Is patient out of medication? Unknown Last Refill Date: 09/1017 Last Visit Date with Ordering Provider: 09/22/17 Next Non-Acute Visit Date Scheduled with Care Team: Yes. 12/14/17 LIZZ NEGRO RN 10/21/2017 10:02 documented in this encounter Plan of Treatment Upcoming Encounters Date Type Department Care Team (Late st Contact Info) Description 06/29/2024 14:15 EDT Office Visit [facility] [address] [place] [address] Jean Munoz MD [address] [place] [phone] documented as of this encounter [...] Discontinue Reason Start Date End Da te traMADol (ULTRAM) 50 mg tabletIndications:Chroni c pain syndrome Take 1 Tab by mouth every 6 hours as needed for up to 28 days for Pain. Daily Max: 200 mg Reorder 09/22/2017 10/20/2017 documented as of this encounter Additional Health Concerns Infection Onset Date Last Indicated Resolved Time R/O COVID-19 05/15/2022 05/15/2022 05/20/2022 22:1 6 EDT R/O COVID-19 11/14/2022 11/14/2022 11/14/2022 19:1 6 EST documented as of this encounter Care Teams Continuity Coordinator Relationship Specialty Start Date End Date Jean Munoz MD [address] [place] [phone] PCP - General 12/31/08 Manny Rizzo MD [address] [place] [phone] 04/20/10 Afia Valle MD [address] [place] [address] [address] [place] [phone] MD Care Team Radiation Oncology 07/02/21 Jesi Leong [facility] [address] [place] [phone] Superintendent Landfill Operations 12/24/21 09/20/22 Jesi Leong [facility] [address] [place] [address] Behavioral Health Superintendent Landfill OperationsPresident And [employer] 10/19/22 01/23/24 documented as of this encounter
--- OUTSIDE RECORDS SUMMARY | 2024-06-10 07:19 | XMS_ITS | Encounter Summary ---
Author Organization [facility] Address [address] [place] [address] Care Team Providers Care Color Worker Name Role Phone Jean Munoz MD Primary Care Provider Manny Rizzo MD Unavailable Reason for Visit * Reason Onset Date Comments Medications Refill 11/16/2017 Encounter Details Date Type Department Care Team (Late st Contact Info) Description 11/16/2017 Telephone [facility] - [address] [address] Tiana Bacon [address] [place] [address] Medications Refill Social History Tobacco [...] by mouth in the morning. 60 Tab 11/16/2017 12/14/2017 methylphenidate HCl (RITALIN;METHYLIN) 10 mg tablet Take one tab in the afternoon for narcolepsy. Earliest Fill Date: 11/16/17 30 Tab 11/16/2017 12/14/2017 documented in this encounter Miscellaneous Notes * Telephone Encounter - Corrina Ac RN - 11/16/2017 1301 EST Spoke with patient and let her know her ritalin prescriptions(2) ready for knot picker cloth at the Sleep Program. * Telephone Encounter - Barbara Gimenez - 11/16/2017 0832 EST Medication Refill Medication(s) Requested: Ritalin 20mg and Ritalin 10mg Pharmacy (reconcile pharmacy list): [facility] Is patient out of medication? No Picking up/mailing (location)/calling in/eprescribe? PT will knot picker cloth at front desk manager. Please call when ready. PT is on crutches and hoping to knot picker cloth today, if not her nephew, Jean Johnson will knot picker cloth. 30 day supply/90 day supply? 30 Barbara Gimenez 11/16/20178:32 documented in this encounter Plan of Treatment Upcoming Encounters Date Type Department Care Team (Late st Contact Info) Description 06/29/2024 14:15 EDT Office Visit [facility] [address] [place], [place] [phone] Jean Munoz MD [address] [place] [phone] documented as of this encounter Visit Diagnoses Not on filedocumented in this encounter Discontinued Medications Medication Sig Discontinue Reason Start Date End Da te methylphenidate HCl (RITALIN;METHYLIN) 10 mg tablet Take one tab in the afternoon for narcolepsy. Earliest Fill Date: 10/19/17 Reorder 10/19/2017 11/16/2017 methylphenidate HCl (RITALIN;METHYLIN) 20 mg tablet Take 2 tabs by mouth in the morning. Earliest Fill Date: 10/19/17 Reorder 10/19/2017 11/16/2017 documented as of this encounter Care Teams Color Worker Relationship Specialty Start Date End Date Jean Munoz MD [address] [place] [phone] PCP - General 12/31/08 Manny Rizzo MD [address] [place] [address] 04/20/10 documented as of this encounter
--- OUTSIDE RECORDS SUMMARY | 2024-06-10 07:19 | XMS_ITS | Encounter Summary ---
Author Organization [facility] Address [address] [place] [address] Care Team Providers Care Cook Sauce Name Role Phone Jean Munoz MD Primary Care Provider Manny Rizzo MD Unavailable Reason for Visit * Reason Onset Date Comments Medications Refill 12/14/2017 Encounter Details Date Type Department Care Team (Late st Contact Info) Description 12/14/[address] [facility] [address] [place], [place] [phone] Jean Munoz MD [address] [place] [phone] Medications Refill Social History Tobacco [...] te HYDROcodone-acetaminophen (NORCO) 5-325 mg tabletIndications:Chronic pain syndrome Take 1-2 Tabs by mouth every 6 hours as needed for up to 28 days for Pain. Daily Max: 8 Tabs 112 Tab 02/08/2018 03/03/2018 HYDROcodone-acetaminophen (NORCO) 5-325 mg tabletIndications:Chronic pain syndrome Take 1-2 Tabs by mouth every 6 hours as needed for up to 28 days for Pain. Daily Max: 8 Tabs 112 Tab 01/11/2018 03/03/2018 HYDROcodone-acetaminophen (NORCO) 5-325 mg tabletIndications:Chronic pain syndrome Take 1-2 Tabs by mouth every 6 hours as needed for up to 28 days for Pain. Daily Max: 8 Tabs 112 Tab 12/14/2017 03/03/2018 documented in this encounter Miscellaneous Notes * Telephone Encounter - Lena Bell RN - 12/14/2017 1458 EDT Spoke with pharmacist. 3 new scripts were sent Pharmacy will destroy the 3 scripts with wrong dates. * Telephone Encounter - Jean Munoz MD - 12/14/2017 1451 EDT escript done, please notify pharmacy, thanks * Telephone Encounter - Lena Bell RN - 12/14/2017 1447 EDT Spoke with [facility] who states they need all new scripts. [facility] is control 2 medication. * Telephone Encounter - Kavita Baxter - 12/14/2017 1422 EDT Pharmacy received scripts for hydrocodone- first one was with a start date of 4.5.18. Patient says it should have been dated for today and the Dr. Munoz was aware of this, since today was the onlyday she could get to the pharmacy. She is at the pharmacy waiting. They will need a new script with the new start date if different then 4.5.18 documented in this encounter Plan of Treatment Upcoming Encounters Date Type Department Care Team (Late st Contact Info) Description 06/29/2024 14:15 EDT Office Visit [facility] Medicine [facility] [address] [place] [address] Jean Munoz MD [address] [place] [phone] documented as of this encounter [...] for Pain. Daily Max: 8 Tabs Reorder 12/16/2017 12/14/2017 HYDROcodone-acetaminophe n (NORCO) 5-325 mg tabletIndications:Chroni c pain syndrome Take 1-2 Tabs by mouth every 6 hours as needed for up to 28 days for Pain. Daily Max: 8 Tabs Reorder 02/10/2018 12/14/2017 HYDROcodone-acetaminophe n (NORCO) 5-325 mg tabletIndications:Chroni c pain syndrome Take 1-2 Tabs by mouth every 6 hours as needed for up to 28 days for Pain. Daily Max: 8 Tabs Reorder 01/13/2018 12/14/2017 documented as of this encounter Care Teams Cook Sauce Relationship Specialty Start Date End Date Jean Munoz MD [address] [place] [phone] PCP - General 12/31/08 Manny Rizzo MD [address] [place] [address] 04/20/10 documented as of this encounter
--- OUTSIDE RECORDS SUMMARY | 2024-06-10 07:19 | XMS_ITS | Encounter Summary ---
Author Organization [facility] Address [address] [place] [address] Care Team Providers Care Pro Shop Attendant Name Role Phone Jean Munoz MD Primary Care Provider Manny Rizzo MD Unavailable Reason for Visit * Reason Onset Date Comments Other 11/01/2017 Encounter Details Date Type Department Care Team (Late st Contact Info) Description 11/01/2017 Telephone [facility] [address] [place] [address] Jean Munoz MD [address] [place] [phone] Other Social History Tobacco Use Types [...] encounter Miscellaneous Notes * Telephone Encounter - Sapna Dominguez - 11/01/2017 1107 EST Reason for Call: No chief complaint on file. Summary/Symptoms: Pt had ankle surgery, will be non weight bearing for another month. She is doing well, states she doesn't need service any more. Onset and Duration? Appointment Offered? N/A Sapna Dominguez 11/01/2017 11:08 documented in this encounter Plan of Treatment Upcoming Encounters Date Type Department Care Team (Late st Contact Info) Description 06/29/2024 14:15 EDT Office Visit [facility] [address] [place], [place] [phone] Jean Munoz MD [address] [place] [phone] documented as of this encounter Visit Diagnoses Not on filedocumented in this encounter Care Teams Pro Shop Attendant Relationship Specialty Start Date End Date Jean Munoz MD [address] [place] [phone] PCP - General 12/31/08 Manny Rizzo MD [address] [place] [phone] 04/20/10 documented as of this encounter
--- OUTSIDE RECORDS SUMMARY | 2024-06-10 07:19 | XMS_ITS | Encounter Summary ---
Author Organization [facility] Address [address] [place] [address] Care Team Providers Care [employer] Equipment Operator Name Role Phone Jean Munoz MD Primary Care Provider Manny Rizzo MD Unavailable Reason for Visit * Reason Onset Date Comments Medication Questions 09/22/2017 Encounter Details Date Type Department Care Team (Late st Contact Info) Description 09/22/2017 Telephone [facility] [address] [place] [address] Jean Munoz MD [address] [place] [phone] Medication Questions Social History Tobacco Use [...] Telephone Encounter - Kaitlyn Montero LPN - 09/22/2017 1552 EST Spoke face to face with Dr. Munoz. Per Dr. Munoz it is okay if medication is filled today. Called pharmacy and spoke with Susan. Relayed Dr. Munoz message. Susan stated she understood. BIJU Kelly * Telephone Encounter - Kavita Adames - 09/22/2017 1518 EST norco script sig states Take 1-2 Tabs by mouth every 6 hours as needed for up to 28 days for Pain. Earliest Fill Date: 09/13/17, but then has a start date of 09.23.17 Pharmacy questioning if it is ok tofill today. Pt waiting at pharmacy Please advise documented in this encounter Plan of Treatment Upcoming Encounters Date Type Department Care Team (Late st Contact Info) Description 06/29/2024 14:15 EDT Office Visit [facility] [address] [place] [address] Jean Munoz MD [address] [place] [phone] documented as of this encounter Visit Diagnoses Not on filedocumented in this encounter Care Teams [employer] Equipment Operator Relationship Specialty Start Date End Date Jean Munoz MD [address] [place] [phone] PCP - General 12/31/08 Manny Rizzo MD [address] [place] [phone] 04/20/10 documented as of this encounter
--- OUTSIDE RECORDS SUMMARY | 2024-06-10 07:19 | XMS_ITS | Encounter Summary ---
Author Organization [facility] Address [address] [place] [address] Care Team Providers Care Dulite Machine Bluer Name Role Phone Jean Munoz MD Primary Care Provider Manny Rizzo MD Unavailable Reason for Referral * Radiology Services (Routine) - New Request Specialty Diagnoses / Procedures Referred By [facility] t Referred To Contact Diagnoses Posterior tibial tendonitis, right Foot pain, right Posterior tibial tendon dysfunction, right Procedures FOOT 3 OR MORE VIEWS Liu Tilley MD [address] [place] [phone] Referral ID Status Reason Start Date Expiration Date V isits Requested Visits Authorized [id number] New Request 01/13/2018 1 1 Reason for Visit * Reason Onset Date Comments Appointment Related 01/04/2018 Encounter Details Date Type Department Care Team (Late st Contact Info) Description 01/04/2018 Orders Only [facility] - [address] [address] Liu Tilley MD [address] [place] [phone] Posterior tibial tendonitis, right (Primary Dx); Foot pain, right; Posterior tibial tendon dysfunction, right Social History [...] Visit [facility] [address] [place] [address] Jean Munoz MD [address] [place] [phone] documented as of this encounter Procedures Procedure Name Priority Date/Time Associated Diagnosis Comments FOOT 3 OR MORE VIEWS Routine 01/13/2018 13:23 EDT Posterior tibial tendonitis, right Foot pain, right Posterior tibial tendon dysfunction, right documented in this encounter Results * FOOT 3 OR MORE VIEWS (01/13/2018 13:23 EDT) Anatomical Region Laterality Modality Other 01/13/2018 13:2 3 EDT 01/13/2018 18:16 EDT Narrative 01/13/2018 18:16 EDT FOOT 3 OR MORE VIEWS ??01/13/2018 1:23 PM Clinical History/Comments: M76.821-Posterior tibial tendinitis, right leg-ICD-10 M79.671-Pain in right foot-ICD-10; foot pain COMPARISON: Radiographs on November 25, 2017. FINDINGS: Right foot 3 weightbearing views are obtained. There is ongoing healing of the previously described calcaneal osteotomy with cannulated locking screw crossing the osteotomy site. No evidence for interval hardware failure or loosening is seen. There again appears to be a small fracture through the bone tunnel of the navicular at the level of the tendon transfer. Please correlate. Diffuse osteopenia is again noted. Degenerative changes appear similar relative to the prior study. Procedure Note Liu Kohli MD - 01/13/2018 FOOT 3 OR MORE VIEWS 01/13/2018 1:23 PM Clinical History/Comments: M76.821-Posterior tibial tendinitis, right leg-ICD-10 M79.671-Pain in right foot-ICD-10; foot pain COMPARISON: Radiographs on November 25, 2017. FINDINGS: Right foot 3 weightbearing views are obtained. There is ongoing healing of the previously described calcaneal osteotomy with cannulated locking screw crossing the osteotomy site. No evidence for interval hardware failure or loosening is seen. There again appears to be a small fracture through the bone tunnel of the navicular at the level of the tendon transfer. Please correlate. Diffuse osteopenia is again noted. Degenerative changes appear similar relative to the prior study. Liu Tilley MD IMG DIAGNOSTIC IM AGING ORDERABLES documented in this encounter Visit Diagnoses Diagnosis Posterior tibial tendonitis, right- Primary Foot pain, right Pain in limb Posterior tibial tendon dysfunction, right Screening for osteoporosis- Primary Special screening for osteoporosis Primary narcolepsy without cataplexy Chronic pain syndrome Chronic low back pain Lumbago Chronic use of opiate for therapeutic purpose Pain medication agreement Encounter for long-term (current) use of other medications Screen for colon cancer Special screening for malignant neoplasms, colon documented in this encounter Care Teams Dulite Machine Bluer Relationship Specialty Start Date End Date Jean Munoz MD [address] [place] [phone] PCP - General 12/31/08 Manny Rizzo MD [address] [place] [phone] 04/20/10 documented as of this encounter
--- OUTSIDE RECORDS SUMMARY | 2024-06-10 07:19 | XMS_ITS | Encounter Summary ---
Author Organization [facility] Address [address] [place] [address] Care Team Providers Care Tibco Developer Name Role Phone Jean Munoz MD Primary Care Provider Manny Rizzo MD Unavailable Reason for Referral * Referral (Routine/Next Available) - Specialty Report Received Specialty Diagnoses / Procedures [facility] Referred To Contact Diagnoses Posterior tibial tendonitis of right leg Pre-op exam Jean Munoz MD [address] [place] [phone] [facility] & [address] [address] Referral ID Status Reason Start Date Expiration Date Visits Requested Visits Authorized [id number] Specialty Report Received Specialty Services Required 10/01/2017 1 1 Question Answer I certify that this patient is under my care and that I, or another Medicare allowed practitioner (, , RICKEY) working with me, had a [id number] encounter with this patient on this date: 10/01/2017 I further certify that the [id number] encounter was in whole or in part [...] the following diagnoses, illness or condition (describe): surgery The patient has a condition due to [...] skilled care requested: Nursing asessment, Physical Therapy care home assessment needed related to this encounter: Post Surgical Physical therapy is needed for: Post Surgical Scheduling Comments (optional ? describe specific scheduling needs if applicable): Surgery pending 10/11, patient would like wheelchair LAUREN Reason for Visit * Reason Onset Date Comments [facility] 10/01/2017 Encounter Details Date Type Department Care Team (Late st Contact Info) Description 10/01/[address] [address] Jean Munoz MD [address] [place] [phone] [facility] Social History Tobacco Use Types Packs/Day Years [...] Miscellaneous Notes * Telephone Encounter - Kavita Adames - 10/01/2017 8495 EST [facility] received referral for pt, but pt lives in [place] so it needs to go to [facility]. documented in this encounter Plan of Treatment Upcoming Encounters Date Type Department Care Team (Late st Contact Info) Description 06/29/2024 14:15 EDT Office Visit [facility] [address] [place] [address] Jean Munoz MD [address] [place] [phone] Scheduled Referrals Name Type Priority Associated Diagnoses Orde r Schedule AMB CONS/FOLLOW UP HOME HEALTH SERVICES Outpatient Referral Routine Posterior tibial tendonitis of right leg Pre-op exam Ordered: 10/01/2017 documented as of this encounter Visit Diagnoses Diagnosis Posterior tibial tendonitis of right leg- Primary Pre-op exam Preoperative examination, unspecified Screening for osteoporosis- Primary Special screening for osteoporosis Primary narcolepsy without cataplexy Chronic pain syndrome Chronic low back pain Lumbago Chronic use of opiate for therapeutic purpose Pain medication agreement Encounter for long-term (current) use of other medications Screen for colon cancer Special screening for malignant neoplasms, colon documented in this encounter Care Teams Tibco Developer Relationship Specialty Start Date End Date Jean Munoz MD [address] [place] [phone] PCP - General 12/31/08 Manny Rizzo MD [address] [place] [phone] 04/20/10 documented as of this encounter
--- OUTSIDE RECORDS SUMMARY | 2024-06-10 07:19 | XMS_ITS | Encounter Summary ---
Author Organization [facility] Address [address] [place] [address] Care Team Providers Care Floor Installer Name Role Phone Jean Munoz MD Primary Care Provider Manny Rizzo MD Unavailable Encounter Details Date Type Department Care Team (Late st Contact Info) Description 10/21/2017 Abstract [facility] [address] [place] [address] Jean Munoz MD [address] [place] [phone] Social History Tobacco Use Types [...] 14:15 EDT Office Visit [facility] [address] [place] [address] Jean Munoz MD [address] [place] [phone] documented as of this encounter Visit Diagnoses Not on filedocumented in this encounter Care Teams Floor Installer Relationship Specialty Start Date End Date Jean Munoz MD [address] [place] [phone] PCP - General 12/31/08 Manny Rizzo MD [address] [place] [phone] 04/20/10 documented as of this encounter
--- OUTSIDE RECORDS SUMMARY | 2024-06-10 07:19 | XMS_ITS | Encounter Summary ---
Author Organization [facility] Address [address] [place] [address] Care Team Providers Care Video Games Mechanic Name Role Phone Jean Munoz MD Primary Care Provider Manny Rizzo MD Unavailable Reason for Visit * Reason Onset Date Comments Medications Refill 09/21/2017 Encounter Details Date Type Department Care Team (Late st Contact Info) Description 09/21/2017 Telephone [facility] Sleep Program - [address] [id number] Tiaan Bacon [address] [place] [phone] Medications Refill Social History Tobacco [...] narcolepsy. Earliest Fill Date: 09/21/17 30 Tab 09/21/2017 10/19/2017 methylphenidate HCl (RITALIN;METHYLIN) 20 mg tablet Take 2 tabs by mouth in the morning. 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 * Telephone Encounter - Britney Tai - 09/21/2017 0833 EST Patient called, requested new Rx for methylphenidate 10 mg and 20 mg; would like the Rx available at the administrative assistant front desk and she will pick it up. I explained will relay this to the nurse. documented in this encounter Plan of Treatment Upcoming Encounters Date Type Department Care Team (Late st Contact Info) Description 06/29/2024 14:15 EDT Office Visit [facility] [address] [place] [address] Jean Munoz MD [address] [place] [phone] documented as of this encounter Visit Diagnoses Not on filedocumented in this encounter Discontinued Medications Medication Sig Discontinue Reason Start Date End Da te methylphenidate HCl (RITALIN;METHYLIN) 20 mg tablet Take 2 tabs by mouth in the morning. Reorder 08/24/2017 09/21/2017 methylphenidate HCl (RITALIN;METHYLIN) 10 mg tablet Take one tab in the afternoon for narcolepsy. Earliest Fill Date: 08/24/17 Reorder 08/24/2017 09/21/2017 documented as of this encounter Care Teams Video Games Mechanic Relationship Specialty Start Date End Date Jean Munoz MD [address] [place] [phone] PCP - General 12/31/08 Manny Rizzo MD [address] [place] [phone] 04/20/10 documented as of this encounter
--- OUTSIDE RECORDS SUMMARY | 2024-06-10 07:19 | XMS_ITS | Encounter Summary ---
Author Organization [facility] Address [address] [place] [address] Care Team Providers Care Surgical Instruments Inspector Name Role Phone Jean Munoz MD Primary Care Provider Manny Rizzo MD Unavailable Encounter Details Date Type Department Care Team (Latest Contact Info) Description 10/11/2017 7:26 EST - 10/11/2017 13:09 EST Hospital Encounter [facility] Perioperative Services - [facility] [address] [place] [address] Liu Tilley MD [address] [place] [address] Posterior tibial tendon dysfunction, right; Ankle arthritis Discharge Disposition: Home or Self Care Social [...] Sign Reading Time Taken Comments Blood Pressure 120/67 10/11/2017 1254 EST Pulse - - Temperature 37 ??C (98.6 ??F) 10/11/2017 1254 EST Respiratory Rate 22 10/11/2017 1254 EST Oxygen Saturation 96% 10/11/2017 1254 EST Inhaled Oxygen Concentration - - Weight 92.1 kg (203 lb) 10/04/2017 0950 EST Height 162.6 cm (5' 4) 10/04/2017 0950 EST Body Mass Index 34.84 10/04/2017 0950 EST documented in this encounter Functional Status [...] as of this encounter Discharge Diagnoses Diagnosis M76.821 Posterior tibial tendinitis, right leg-M76.821[ICD-10-CM] M25.771 Osteophyte, right ankle-M25.771[ICD-10-CM] M19.171 Post-traumatic osteoarthritis, right ankle and foot-M19.171[ICD-10-CM] Z79.51 longterm (current) use of inhaled steroids-Z79.51[ICD-10-CM] Z79.899 Other mcc (current) drug therapy-Z79.899[ICD-10-CM] Z87.891 Personal history of nicotine dependence-Z87.891[ICD-10-CM] J45.998 Other asthma-J45.998[ICD-10-CM] K21.9 Gastro-esophageal reflux disease without esophagitis-K21.9[ICD-10-CM] G47.33 Obstructive sleep apnea (adult) (pediatric)-G47.33[ICD-10-CM] J43.1 Panlobular emphysema-J43.1[ICD-10-CM] documented in this encounter Discharge Instructions * Discharge Instructions* Maria T Levy MD - 10/11/2017 9:42 EST Keep splint clean and dry No weight bearing on right leg Call Dr. Tilley's office with questions Future Appointments Date Time Provider Department Center 10/26/2017 13:00 Liu Tilley MD [facility] None 11/25/2017 10:15 Liu Tilley MD [facility] None 12/14/2017 13:00 Jean Munoz MD [facility] None documented in this encounter Medications at Time [...] Each 1 01/14/2017 07/05/2018 Ciclesonide 50 mcg spray,non-aerosolIndica tions:Seasonal allergic rhinitis, unspecified allergic rhinitis trigger 1 spray each nostril daily 37.5 g 1 06/02/2017 03/03/2018 cycloSPORINE (RESTASIS) 0.05 % ophthalmic emulsion Place 1 Drop into both eyes 2 times daily 10/25/2014 11/11/2018 doxycycline (VIBRAMYCIN) 100 mg capsuleIndications:Elaine cea TAKE 1 CAPSULE BY MOUTH EVERY DAY 90 Cap 1 10/15/2017 04/05/2018 fexofenadine (JUDITH) 180 mg tablet Take 1 Tab by mouth daily. 90 Tab 3 07/16/2017 05/26/2018 fluticasone-salmeterol (ADVAIR HFA) 115-21 mcg/actuation inhaler Inhale 1 Puff as directed 2 times daily. 1 Inhaler 11 03/03/2017 04/05/2018 HYDROcodone-acetaminoph en (NORCO) 5-325 mg tabletIndications:Chron ic pain syndrome Take 1-2 Tabs by mouth every 6 hours as needed for up to 28 days for Pain. Earliest Fill Date: 11/18/17 Daily Max: 8 Tabs 112 Tab 11/18/2017 12/14/2017 HYDROcodone-acetaminoph en (NORCO) 5-325 mg tabletIndications:Chron ic pain syndrome Take 1-2 Tabs by mouth every 6 hours as needed for up to 28 days for Pain. Earliest Fill Date: 10/21/17 Daily Max: 8 Tabs 112 Tab 10/21/2017 12/14/2017 HYDROcodone-acetaminoph en (NORCO) 5-325 mg tabletIndications:Chron ic pain syndrome Take 1-2 Tabs by mouth every 6 hours as needed for up to 28 days for Pain. Earliest Fill Date: 09/13/17 Daily Max: 8 Tabs 112 Tab 09/23/2017 12/14/2017 hydroxypropyl methylcellulose (ISOPTO TEARS) 0.5 % ophthalmic solution Place 1 Drop into both eyes 5 times daily. 12/10/2010 10/06/2023 ipratropium-albuterol (DUONEB) 0.5 mg-3 mg(2.5 mg base)/3 mL nebulizer solutionIndications:Mod erate persistent asthma without complication Take 3 mL by nebulization every 4 hours as needed for Wheezing. 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 60 Tab 09/21/2017 10/19/2017 methylphenidate HCl (RITALIN;METHYLIN) 10 mg tablet Take one tab in the afternoon for narcolepsy. Earliest Fill Date: 09/21/17 30 Tab 09/21/2017 10/19/2017 montelukast (SINGULAIR) 10 mg tabletIndications:Moder ate persistent asthma without complication TAKE 1 TABLET BY MOUTH EVERY DAY 90 Tab 4 05/24/2017 05/26/2018 naloxone (NARCAN) 4 mg/actuation nasal spray 1 Nubieber by nasal route as needed for Opioid Reversal. 1 Each 06/01/2017 04/17/2018 omeprazole (PRILOSEC) 40 mg capsuleIndications:Benja roesophageal reflux disease, esophagitis presence not specified Take 1 Cap by mouth daily. 90 Cap 3 06/01/2017 05/26/2018 ondansetron (ZOFRAN) 4 mg tabletIndications:Nause a TAKE ONE TABLET BY MOUTH DAILY NEEDED for nausea 30 Tab 3 06/01/2017 04/04/2018 oxyCODONE (ROXICODONE) 5 mg immediate release tablet Take 1 Tab by mouth every 4 hours as needed for Pain. Daily Max: 30 mg 30 Tab 10/11/2017 12/14/2017 promethazine (PHENERGAN) 12.5 mg tablet Take 1 Tab by mouth every 6 hours as needed for Nausea. 20 Tab 10/11/2017 12/14/2017 roflumilast (DALIRESP) 500 mcg tabletIndications:Chron ic obstructive pulmonary disease, unspecified COPD type (HCC-CMS) Take 1 Tab by mouth daily. 90 Tab 1 10/15/2017 04/06/2018 rOPINIRole (REQUIP) 2 mg tabletIndications:Restl ess legs syndrome TAKE 1 TABLET BY MOUTH NIGHTLY AT BEDTIME 90 Tab 4 05/24/2017 05/26/2018 sertraline (ZOLOFT) 100 mg tabletIndications:Major depressive disorder, recurrent, severe without psychotic features ([facility]-CMS) TAKE TWO TABLETS BY MOUTH DAILY 180 Tab 4 05/24/2017 05/26/2018 sumatriptan (IMITREX) 50 mg tabletIndications:Migra ine without status migrainosus, not intractable, unspecified migraine type take 1 tablet by mouth as needed for migraine *daily limit 2 tab 9 Tab 5 08/09/2017 02/02/2018 tamsulosin (FLOMAX) 0.4 mg capsuleIndications:Hesi tancy Take 1 Cap by mouth daily. 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 Daily Max: 200 mg 56 Tab 09/22/2017 10/20/2017 XOPENEX HFA 45 mcg/actuation inhalerIndications:Mode rate persistent asthma without complication INHALE TWO PUFFS BY MOUTH EVERY SIX HOURS NEEDED 45 g 5 05/24/2017 05/26/2018 zolpidem (AMBIEN) 5 mg tabletIndications:Insom yesi, unspecified type Take 1 Tab by mouth at bedtime as needed for Sleep. Daily Max: 5 mg 28 Tab 2 09/30/2017 12/14/2017 documented as of this encounter Ordered Prescriptions Prescription Sig Dispensed Refills Start Date End Da te promethazine (PHENERGAN) 12.5 mg tablet Take 1 Tab by mouth every 6 hours as needed for Nausea. 20 Tab 10/11/2017 12/14/2017 oxyCODONE (ROXICODONE) 5 mg immediate release tablet Take 1 Tab by mouth every 4 hours as needed for Pain. Daily Max: 30 mg 30 Tab 10/11/2017 12/14/2017 documented in this encounter Discharge Disposition Disposition Code Departure Means Destination Home or Self Care documented in this encounter Progress Notes * Diane Wei, RN - 10/04/2017 0949 EST Liset Viera has been instructed as follows regarding medication administration for the day of the scheduled procedure. Date of Surgery: 10/11/17 Instructions for Taking Medications Day of Surgery Medication Sig Last Dose Hold DOS Take DOS amLODIPine (NORVASC) 5 mg tablet Take 1 Tab by mouth daily. Yes blood glucose (BLOOD GLUCOSE TEST) test strips 1 Strip by misc (non-drug; combo route) route 2 times daily. Not needed Ciclesonide 50 mcg spray,non-aerosol 1 spray each nostril daily Yes cycloSPORINE (RESTASIS) 0.05 % ophthalmic emulsion Place 1 Drop into both eyes 2 times daily Yes docusate sodium (COLACE) 100 mg capsule Take 1 Cap by mouth 2 times daily as needed for Constipation. Yes doxycycline (VIBRAMYCIN) 100 mg capsule TAKE 1 CAPSULE BY MOUTH EVERY DAY Yes fexofenadine (JUDITH) 180 mg tablet Take 1 Tab by mouth daily. Yes fluticasone-salmeterol (ADVAIR HFA) 115-21 mcg/actuation inhaler Inhale 1 Puff as directed 2 times daily. Yes HYDROcodone-acetaminophen (NORCO) 5-325 mg tablet Take 1-2 Tabs by mouth every 6 hours as needed for up to 28 days for Pain. Earliest Fill Date: 11/18/17 Daily Max: 8 Tabs yes HYDROcodone-acetaminophen (NORCO) 5-325 mg tablet Take 1-2 Tabs by mouth every 6 hours as needed for up to 28 days for Pain. Earliest Fill Date: 10/21/17 Daily Max: 8 Tabs HYDROcodone-acetaminophen (NORCO) 5-325 mg tablet Take 1-2 Tabs by mouth every 6 hours as needed for up to 28 days for Pain. Earliest Fill Date: 09/13/17 Daily Max: 8 Tabs hydroxypropyl methylcellulose (ISOPTO TEARS) 0.5 % ophthalmic solution Place 1 Drop into both eyes 5 times daily. Yes ipratropium-albuterol (DUONEB) 0.5 mg-3 mg(2.5 mg base)/3 mL nebulizer solution Take 3 mL by nebulization every 4 hours as needed for Wheezing. Yes lancets Brand: One Touch Delica Not needed methylphenidate HCl (RITALIN;METHYLIN) 20 mg tablet Take 2 tabs by mouth in the morning. methylphenidate HCl (RITALIN;METHYLIN) 10 mg tablet Take one tab in the afternoon for narcolepsy. Earliest Fill Date: 09/21/17 Yes montelukast (SINGULAIR) 10 mg tablet TAKE 1 TABLET BY MOUTH EVERY DAY Yes naloxone (NARCAN) 4 mg/actuation nasal spray 1 Nubieber by nasal route as needed for Opioid Reversal. Yes omeprazole (PRILOSEC) 40 mg capsule Take 1 Cap by mouth daily. Yes ondansetron (ZOFRAN) 4 mg tablet TAKE ONE TABLET BY MOUTH DAILY NEEDED for nausea Yes pregabalin (LYRICA) 300 mg capsule TAKE ONE CAPSULE BY MOUTH TWICE DAILY. daily max: 2 caps (600mg)Yes promethazine (PHENERGAN) 25 mg tablet Take 1 Tab by mouth every 6 hours as needed for Nausea. Yes roflumilast (DALIRESP) 500 mcg tablet Take 1 Tab by mouth daily. Yes rOPINIRole (REQUIP) 2 mg tablet TAKE 1 TABLET BY MOUTH NIGHTLY AT BEDTIME Yes sertraline (ZOLOFT) 100 mg tablet TAKE TWO TABLETS BY MOUTH DAILY Yes sumatriptan (IMITREX) 50 mg tablet take 1 tablet by mouth as needed for migraine *daily limit 2 tabYes tamsulosin (FLOMAX) 0.4 mg capsule Take 1 Cap by mouth daily. Yes tiotropium bromide (SPIRIVA RESPIMAT) 1.25 mcg/actuation inhaler 2 inhalations (2.5mcg) daily as directed Yes traMADol (ULTRAM) 50 mg tablet Take 1 Tab by mouth every 6 hours as needed for up to 28 days for Pain. Daily Max: 200 mg Yes XOPENEX HFA 45 mcg/actuation inhaler INHALE TWO PUFFS BY MOUTH EVERY SIX HOURS NEEDED Yes zolpidem (AMBIEN) 5 mg tablet Take 1 Tab by mouth at bedtime as needed for Sleep. Daily Max: 5 mg Yes documented in this encounter H&P Notes * Maria T Levy MD - 10/11/2017 0918 EST The preoperative history and physical which was performed within 30 days of this procedure has been reviewed and the clinically appropriate elements of the physical examination have been repeated. There are no changes to the documented history and physical or if so such changes are documented below Maria T Levy MD 10/11/2017 9:18 Source Note - Jean Munoz MD - 09/22/2017 13:00 EST Preoperative H&P Patient ID: Liset Viera [...] ANKLE FRACTURE SURGERY 04/01/10 left ankle [facility] ??? CERVICAL SPINE SURGERY 12/31/08 discectomy, [...] naloxone (NARCAN) 4 mg/actuation nasal spray 1 Nubieber by nasal route as needed for Opioid [...] for Sleep. Daily Max: 5 mg A VPMS([place] Prescription Monitoring System) report on this patient [...] Prevention of Infective Endocarditis Guidelines From the [place] [employer]: A Guideline From the [place] [employer] Rheumatic Fever, Endocarditis, and Kawasaki Disease Committee, [employer] on Cardiovascular Disease in the [place], and the [employer] on Clinical Cardiology, [employer] [employer] on Cardiovascular Surgery and Anesthesia, and the Quality of Care and Outcomes Research Interdisciplinary Working Group. Please see Circulation. 2007;116:2237-3054 for the detailed indications. Michelle-operative betablocker (BB) [...] for noncardiac surgery. A report of the [place] [employer] Foundation/[employer] [employer] Task Force on Practice Guidelines. Please see J Am Edilberto Cardiol. 2009; Aug 06;54(22):v22-s333 for the detailed indications. documented in this encounter OR Notes * OR Surgeon - Liu Tilley MD - 10/11/2017 1309 EST OPERATIVE REPORT SERVICE DATE: 10/11/2017 PREOPERATIVE DIAGNOSIS: Right posterior tibial tendon dysfunction. POSTOPERATIVE DIAGNOSIS: Right posterior tibial tendon dysfunction. PROCEDURES: Right calcaneus osteotomy and flexor digitorum longus to posterior tibial tendon transfer, removal of anterior ankle osteophytes SURGEON: Liu Tilley MD CONSTRUCTION CARPENTER: Maria T Levy MD ANESTHESIA: general ESTIMATED BLOOD LOSS: Minimal. INTRAVENOUS FLUIDS: 750 cc crystalloid URINE OUTPUT: Not recorded. TOURNIQUET TIME: 48 minutes. INDICATIONS: Liset Avila is a 56 year-old female who presented to Dr Tilley's office with complaints of medial-sided ankle pain. MRI noted a degenerative posterior tibial tendon on her right side.She underwent conservative management without much relief. She consented for the operative procedure above. NARRATIVE: Liset was met in the preoperative holding area where her identity, consent and correct surgical site was marked. All of her questions were answered. She was brought back to the operating suite and placed onto the operative table, and then she was given general anesthesia by our anesthesia colleagues. All of her bony prominences were padded. Her right lower extremity was prepped and draped in the usual sterile fashion. Prior to this, a nonsterile thigh tourniquet was placed. Next, a WHO 2 timeout was performed and all participating members were in agreement. First, our attention was turned laterally where a roughly 5 cm obliquely oriented incision was made from the superior border of the calcaneus to the glabrous skin laterally. The skin was sharply dissected down taking care to protect the sural nerve. Once we were down to bone, asagittal saw was used to penetrate both the lateral and medial cortex for the osteotomy. Once the calcaneus was freed, the calcaneus was moved into the correct position. With the use of fluoroscopy, the correct position was obtained. Next, an incision was made on the posterior aspect of the calcaneus for the insertion of the screw.Using fluoroscopy, again the correct trajectory was obtained. A guidepin was placed into the calcaneus. This was measured and a 50 mm screw with short threads was chosen. The outer cortex was drilledand a 50 mm screw was placed with appropriate position. This wound was then irrigated and the deep layer was closed. The subcutaneous layer was closed with 3-0 Monocryl. The skin was closed with a Prolene suture. The heel incision was also closed with 3-0 Prolene suture after being thoroughly irrigated. Attention was then turned to the anterior aspect of her right ankle. Using a roughly 5 cm longitudinal incision, the ankle joint was exposed taking care to protect the neurovascular bundle during sharp dissection. Once exposed, the large osteophytes on the distal aspect of the tibia and the proximal aspect of the talus were removed using an osteotome. The ankle joint was put through range of motion and no further impingement was noted. This wound was thoroughly irrigated. Our attention was then turned to the medial side of the ankle where a roughly 7 cm incision was made from the posterior aspect of the distal medial malleolus to the navicular tuberosity. This was sharply dissected down to find the posterior tibial tendon, and its sheath was sharply taken down. Carewas taken to provide adequate hemostasis along the dissection. Once the posterior tibial tendon was identified, it was sharply released from its insertion on the navicular. It was then retracted witha Erik and released proximally, allowing it to retract into the calf. Next, the FDL tendon was identified and released from the knot of Josr. It was then sharply released from the distal aspect and freed proximally. Next, the navicular was sharply dissected, allowing both the dorsal and plantar aspect to be exposed. A guide pin was placed from dorsal to plantar into the navicular. This was drilled. Next, the FDL tendon was whipstitched with a Vicryl suture. This was then passed through from plantar to dorsal through the navicular. This was then sutured in place to the bone, as well as the periosteum with 0 Ethibond suture. The foot was placed in 15 degrees of inversion and plantar flexion while tensioning the FDL. Once we werehappy with the placement of our tendon, this wound was thoroughly irrigated. The tourniquet was let down and hemostasis was achieved. The deep layers of the anterior and medialwounds were closed with 0 vicryl sutures. The subcutaneous layers were closed with 3-0 Monocryl suture. The skin was closed with 3-0 Prolene suture. The wounds were then covered with Xeroform. She was then placed in a dry dressing as well as a bulky Vieira splint. She was safely awakened from general anesthesia. She was then transitioned onto the hospital stretcher. Dr Tilley was immediately available and scrubbed for the entirety of the procedure. Unless otherwise noted, there were no complications, no blood loss, no cultures obtained, no specimens removed, and no drains retained. Maria T Levy MD 10/11/2017 22:00 documented in this encounter Miscellaneous Notes * Anesthesia Post-Eval - Odalys Pillai MD - 10/11/2017 1259 EST Anesthesia Post op Note Liset Viera [id number] Anesthesia received: General, Regional; Post op block expected to continue for post-op analgesia Vital Signs: Temp: 37 ??C (98.6 ??F), Heart Rate: 87 BPM, BP: 120/67, Resp: (!) 32, SpO2: 95 % Vital signs Stable: Yes Consciousness: Recovered to baseline, Awake, Alert Patient's participation in evaluation:Able to participate Temperature Status: Normothermic Respiratory Status: Airway patent Supplemental O2: Room air Oxygen Saturation: Within patient's normal range Cardiovascular Status: Within patient's normal range Post-op Hydration: Adequate Nausea / Vomiting: None Pain Control: Adequate Current Pain Score: Numeric Pain Level (Scale 1-10): 5 (baseline pain per patient) Post-op Assessment: Tolerated procedure well Disposition: Home Complications: No apparent anesthetic complications Odalys Pillai MD 10/11/2017 12:59 * Brief Op Note - Maria T Levy MD - 10/11/2017 0949 EST BRIEF OP NOTE Preop Diagnosis: posterior tibial tendon dysfunction, right foot with ankle arthritis Post op Diagnosis: same Procedure: right calcaneus osteotomy and FDL to PTT transfer, right ankle removal of osteophytes Surgeon: Jarek JOSEPH Room Service Attendant: Cam JOSEPH Anesth: general Findings: posterior tibial tendon synovitis EBL: Minimal mL IVF: 750 cc crystalloid UOP: NR Tourniquet time: 48 minutes Specimen: none Cultures: none Closure: prolene Complications: none Dispo: PACU then home Given significant amount of pain associated with this procedure, more than the recommended amount of narcotic was prescribed. Maria T Levy MD 10/11/2017 9:20 Pager: [phone] documented in this encounter Plan of Treatment Upcoming Encounters Date Type Department Care Team (Late st Contact Info) Description 06/29/2024 14:[address] [facility] [address] [place] [address] Jean Munoz MD [address] [place] [phone] documented as of this encounter Procedures Procedure Name Priority Date/Time Associated Diagnosis Comments ECG REPORT - SCANNED 10/14/2017 11:15 EST ANESTHESIA NERVE BLOCK POPLITEAL FOSSA Routine 10/11/2017 9:20 EST documented in this encounter Results * ECG REPORT - SCANNED (10/14/2017 11:15 EST) 10/14/2017 11:1 5 EST Scan 2 Planning Aide PROCEDURE/MINOR GURU GICAL ORDERABLES * ANESTHESIA NERVE BLOCK POPLITEAL FOSSA (10/11/2017 9:20 EST) Anatomical Region Laterality Modality Other 10/11/2017 9:20 EST Narrative 10/11/2017 9:20 EST Non Reportable Exam Procedure Note FIBER PICKER, IMAGING - 10/11/2017 Non Reportable Exam Odalys Pillai MD [facility] ORDERABLES documented in this encounter Visit Diagnoses Diagnosis Posterior tibial tendon dysfunction, right Ankle arthritis Unspecified arthropathy, ankle and foot Ankle arthritis Unspecified arthropathy, ankle and foot Posterior tibial [...] MAR Action Action Date Dose Rate Site acetaminophen (TYLENOL) tablet 1,000 mg 1,000 mg, oral, PRE-OP ONCE, 1 dose, On 1/29/18 at 0815, Routine, Pre-Op DOS Rx Approved Given 10/11/2017 8:27 EST 1,000 mg atropine 0.1 mg/mL syringe 0.5 mg 0.5 mg, intravenous, PRN, Starting on Wed10/11/17 at 1037, Until Wed10/11/17 at 1516, Symptomatic HR < 50, Routine, Recovery (only) ceFAZolin (ANCEF) syringe 2 g 2 g, intravenous, Administer over 10 Minutes, PRE-OP ONCE, 1 dose, On Wed10/11/17 at 0815, Routine, Pre-Op DOS Rx Approved Given by Other 10/11/2017 9:46 EST 2 g diphenhydrAMINE (BENADRYL) injection 12.5 mg 12.5 mg, intravenous, PRN, 1 dose, Starting on Wed10/11/17 at 1037, Until Wed10/11/17 at 1516, nausea, Routine, Recovery (only) fentaNYL citrate (PF) 50 mcg/mL injection 25-50 mcg 25-50 mcg, intravenous, EVERY 5 MIN PRN, Starting on Wed10/11/17 at 1037, Until Wed10/11/17 at 1516, Pain, Routine, Recovery (only) Given 10/11/2017 11:55 EST 50 mcg Given 10/11/2017 11:30 EST 50 mcg Given 10/11/2017 11:22 EST 50 mcg HYDROmorphone injection (DILAUDID) 0.5 mg/1 mL syringe 0.25-0.5 mg 0.25-0.5 mg, intravenous, EVERY 10 MINUTES PRN, Starting on Wed10/11/17 at 1233, Until Wed10/11/17 at 1516, Pain, Routine, Recovery (only) Given 10/11/2017 1 2:38 EST 0.5 mg Given 10/11/2017 12:30 EST 0.5 mg HYDROmorphone injection (DILAUDID) 0.5 mg/1 mL syringe 1 dose, Starting on Wed10/11/17 at 1227, Until Wed10/11/17 at 1230 lactated ringers (LR) infusion at 100 mL/hr, intravenous, CONTINUOUS, Starting on Wed10/11/17 at 0815, Until Wed10/11/17 at 1516, Routine, Pre-Op DOS Rx Approved New Bag 10/11/2017 12:30 EST 100 mL/hr New Bag 10/11/2017 8:26 EST 100 mL/hr lactated ringers (LR) infusion at 75 mL/hr, intravenous, CONTINUOUS, Starting on Wed10/11/17 at 1100, Until Wed10/11/17 at 1516, Routine, Recovery (only) naloxone (NARCAN) injection 0.2 mg 0.2 mg, intravenous, PRN, Starting on Wed10/11/17 at 1037, Until Wed10/11/17 at 1516, Opioid Reversal, Routine, Recovery (only) ondansetron (PF) (ZOFRAN) injection 4 mg 4 mg, intravenous, PRN, 1 dose, Starting on Wed10/11/17 at 1037, Until Wed10/11/17 at 1516, Nausea, Vomiting, Routine, Recovery (only) oxyCODONE (ROXICODONE) immediate release tablet 5-10 mg 5-10 mg, oral, EVERY 30 MINUTES PRN, 2 doses, Starting on Wed10/11/17 at 1037, Until Wed10/11/17 at 1220, Pain, Routine, Recovery (only) Given 10/11/2017 12:20 EST 5 mg Given 10/11/2017 11:22 EST 5 mg documented in this encounter Discontinued Medications Medication Sig Discontinue Reason Start Date End Da te promethazine (PHENERGAN) 25 mg tabletIndications:Nausea and vomiting, intractability of vomiting not specified, unspecified vomiting type Take 1 Tab by mouth every 6 hours as needed for Nausea. 06/01/2017 10/11/2017 documented as of this encounter Active and Recently Administered Medications Times are shown in EST. Scheduled Medication Order 10/09/2017 10/10/2017 10/11/2017 acetaminophen (TYLENOL) tablet 1,000 mg (COMPLETED) 1,000 mg, oral, PRE-OP ONCE, 1 dose, On Wed10/11/17 at 0815, Routine, Pre-Op DOS Rx Approved 826 (Given - Provid er: Dianne Cardoso, CHRIS) ceFAZolin (ANCEF) syringe 2 g (COMPLETED) 2 g, intravenous, Administer over 10 Minutes, PRE-OP ONCE, 1 dose, On Wed10/11/17 at 0815, Routine, Pre-Op DOS Rx Approved 945 (Given by Other - Provider: Deidre Shrestha RN - Comment: Dr. Awilda Bhardwaj) Continuous Medication Order 10/09/2017 10/10/2017 10/11/2017 lactated ringers (LR) infusion at 100 mL/hr, intravenous, CONTINUOUS, Starting on Wed10/11/17 at 0815, Until Wed10/11/17 at 1516, Routine, Pre-Op DOS Rx Approved 0826 (New Bag - Prov ider: Dianne Cardoso RN)1118 (Completed - Provider: Emilee Bernard RN)1230 (New Bag - Provider: Elham Nicholas RN)1310 (Completed - Provider: Emilee Bernard, CHRIS) lactated ringers (LR) infusion at 75 mL/hr, intravenous, CONTINUOUS, Starting on Wed10/11/17 at 1100, Until Wed10/11/17 at 1516, Routine, Recovery (only) 1118 (Continued Infu meño - Provider: Emilee Bernard RN)1250 (Completed - Provider: Emilee Bernard RN) PRN Medication Order 10/09/2017 10/10/2017 10/11/2017 atropine 0.1 mg/mL syringe 0.5 mg 0.5 mg, intravenous, PRN, Starting on Wed10/11/17 at 1037, Until Wed10/11/17 at 1516, Symptomatic HR < 50, Routine, Recovery (only) diphenhydrAMINE (BENADRYL) injection 12.5 mg 12.5 mg, intravenous, PRN, 1 dose, Starting on Wed10/11/17 at 1037, Until Wed10/11/17 at 1516, nausea, Routine, Recovery (only) fentaNYL citrate (PF) 50 mcg/mL injection 25-50 mcg 25-50 mcg, intravenous, EVERY 5 MIN PRN, Starting on Wed10/11/17 at 1037, Until Wed10/11/17 at 1516, Pain, Routine, Recovery (only) 1122 (Given - Provid er: Emilee Bernard RN)1130 (Given - Provider: Emilee Bernard RN)1155 (Given - Provider: Emilee Bernard RN) HYDROmorphone injection (DILAUDID) 0.5 mg/1 mL syringe 0.25-0.5 mg 0.25-0.5 mg, intravenous, EVERY 10 MINUTES PRN, Starting on Wed10/11/17 at 1233, Until Wed10/11/17 at 1516, Pain, Routine, Recovery (only) 1230 (Given - Provid er: Elham Nicholas, CHRIS)1238 (Given - Provider: Elham Nicholas, RN) naloxone (NARCAN) injection 0.2 mg 0.2 mg, intravenous, PRN, Starting on Wed10/11/17 at 1037, Until Wed10/11/17 at 1516, Opioid Reversal, Routine, Recovery (only) ondansetron (PF) (ZOFRAN) injection 4 mg 4 mg, intravenous, PRN, 1 dose, Starting on Wed10/11/17 at 1037, Until Wed10/11/17 at 1516, Nausea, Vomiting, Routine, Recovery (only) oxyCODONE (ROXICODONE) immediate release tablet 5-10 mg (COMPLETED) 5-10 mg, oral, EVERY 30 MINUTES PRN, 2 doses, Starting on Wed10/11/17 at 1037, Until Wed10/11/17 at 1220, Pain, Routine, Recovery (only) 1122 (Given - Provid er: Emilee Bernard RN)1220 (Given - Provider: Elham Nicholas RN) documented in this encounter Orders Medications Ordered That Victor Manuel ht Not Have Been Administered Count Last Ordered Date First Ordered Date atropine 0.1 mg/mL syringe 0.5 mg 1 018 diphenhydrAMINE (BENADRYL) i njection 12.5 mg 1 10/11/2017 lactated ringers (LR) infusion 10/11/2017 naloxone (NARCAN) injection 0.2 mg 1 2017 ondansetron (PF) (ZOFRAN) injection 4 mg 1 10/11/2017 Admission Count Last Ordered Date First Orde red Date STATUS: OUTPATIENT SURGICAL OP BED/SERVICES 10/11/2017 Transfer Count Last Ordered Date First Orde red Date NOTIFY PPS PACU PATIENT DISCHARGE 1 018 Discharge Count Last Ordered Date First Orde red Date DISCHARGE PATIENT 1 10/11/2017 documented in this encounter Care Teams Surgical Instruments Inspector Relationship Specialty Start Date End Date Jean Munoz MD [address] [place] [phone] PCP - General 12/31/08 Manny Rizzo MD [address] [place] [phone] 04/20/10 documented as of this encounter
--- OUTSIDE RECORDS SUMMARY | 2024-06-10 07:19 | XMS_ITS | Encounter Summary ---
Author Organization [facility] Address [address] [place] [address] Care Team Providers Care Sifter Operator Name Role Phone Jean Munoz MD Primary Care Provider Manny Rizzo MD Unavailable Encounter Details Date Type Department Care Team (Late st Contact Info) Description 10/05/2017 Abstract [facility] [address] [place] [address] Jean Munoz MD [address] [place] [address] Social History Tobacco Use Types [...] System [facility] [address] [place] [address] Jean uMnoz MD [address] [place] [phone] documented as of this encounter Visit Diagnoses Not on filedocumented in this encounter Care Teams Sifter Operator Relationship Specialty Start Date End Date Jean Munoz MD [address] [place] [phone] PCP - General 12/31/08 Manny Rizzo MD [address] [place] [phone] 04/20/10 documented as of this encounter
--- OUTSIDE RECORDS SUMMARY | 2024-06-10 07:19 | XMS_ITS | Encounter Summary ---
Author Organization [facility] Address [address] [place] [address] Care Team Providers Care Filtering Machine Tender Name Role Phone Jean Munoz MD Primary Care Provider Manny Rizzo MD Unavailable Reason for Visit * Reason Onset Date Comments Medications Refill 01/11/2018 Encounter Details Date Type Department Care Team (Late st Contact Info) Description 01/11/2018 Refill [facility] Sleep Program - [address] [phone] Tiana Bacon [address] [place] [phone] Medications Refill Social History Tobacco Use [...] by mouth in the morning. 60 Tab 01/11/2018 02/08/2018 methylphenidate HCl (RITALIN;METHYLIN) 10 mg tablet Take one tab in the afternoon for narcolepsy. 30 Tab 01/11/2018 02/08/2018 documented in this encounter Miscellaneous Notes * Telephone Encounter - Corrina Ac RN - 01/11/2018 1228 EDT Ritalin prescriptions e-prescribed by as per request. * Telephone Encounter - Barbara Gimenez - 01/11/2018 0816 EDT Medication Refill Medication(s) Requested: Ritalin 20mg/Ritalin 10mg Pharmacy (reconcile pharmacy list): [facility] Is patient out of medication? No Picking up/mailing (location)/calling in/eprescribe? Eprescribe 30 day supply/90 day supply? 30 Barbara Gimenez 01/11/20188:16 documented in this encounter Plan of Treatment Upcoming Encounters Date Type Department Care Team (Late st Contact Info) Description 06/29/2024 14:15 EDT Office Visit [address] [address] Jean Munoz MD [address] [place] [address] documented as of this encounter Visit Diagnoses Not on filedocumented in this encounter Discontinued Medications Medication Sig Discontinue Reason Start Date End Da te methylphenidate HCl (RITALIN;METHYLIN) 10 mg tablet Take one tab in the afternoon for narcolepsy. Reorder 12/14/2017 01/11/2018 methylphenidate HCl (RITALIN;METHYLIN) 20 mg tablet Take 2 tabs by mouth in the morning. Reorder 12/14/2017 01/11/2018 documented as of this encounter Care Teams Filtering Machine Tender Relationship Specialty Start Date End Date Jean Munoz MD [address] [place] [phone] PCP - General 12/31/08 Manny Rizzo MD [address] [place] [address] 04/20/10 documented as of this encounter
--- OUTSIDE RECORDS SUMMARY | 2024-06-10 07:19 | XMS_ITS | Encounter Summary ---
Author Organization [facility] Address [address] [place] [address] Care Team Providers Care Enterprise Project Manager Name Role Phone Jean Munoz MD Primary Care Provider Manny Rizzo MD Unavailable Reason for Visit * Reason Onset Date Comments Follow-up 10/12/2017 Encounter Details Date Type Department Care Team (Late st Contact Info) Description 10/12/[address] [facility] [address] [place] [address] Jean Munoz MD [address] [place] [phone] Follow-up Social History Tobacco Use [...] Telephone Encounter - Jean Munoz MD - 10/12/2017 1543 EST noted * Telephone Encounter - Rukhsana Molina - 10/12/2017 9143 EST Home PT done today due to surgery recently Will be working on home transfer and safety. They are going to get her a knee scooter instead of a wheelchair documented in this encounter Plan of Treatment Upcoming Encounters Date Type Department Care Team (Late st Contact Info) Description 06/29/2024 14:15 EDT Office Visit [facility] [address] [place] [address] Jean Munoz MD [address] [place] [phone] documented as of this encounter Visit Diagnoses Not on filedocumented in this encounter Care Teams Enterprise Project Manager Relationship Specialty Start Date End Date Jean Munoz MD [address] [place] [phone] PCP - General 12/31/08 Manny Rizzo MD [address] [place] [address] 04/20/10 documented as of this encounter
--- OUTSIDE RECORDS SUMMARY | 2024-06-10 07:19 | XMS_ITS | Encounter Summary ---
Author Organization [facility] Address [address] [place] [address] Care Team Providers Care Rougher Helper Name Role Phone Jean Gann MD Primary Care Provider Manny Rizzo MD Unavailable Reason for Visit * Reason Onset Date Comments Medication Management 09/02/2017 Encounter Details Date Type Department Care Team (Late st Contact Info) Description 09/02/2017 Telephone [facility] [address] [place] [address] Jean Gann MD [address] [place] [phone] Medication Management Social History Tobacco Use [...] Telephone Encounter - Yadira Mccauley RN - 09/02/2017 1330 EST Notified pt and pharmacy of Dr. Gann note. * Telephone Encounter - Jean Gann MD - 09/02/2017 1322 EST Per last Pulmonology note she was on Spiriva There is no indication that they stopped it Review of medication history indicates that she may have stopped on own Because she has COPD, she would likely benefit from taking it if she is willing to do so * Telephone Encounter - Lesly Mcmullen - 09/02/2017 1038 EST Susan pharmacist from [facility] would like to review patients med list w/ nurse Specifically questioning status of Spiriva inhaler. Patient thought this was D/c'd, but a new order was sent recently documented in this encounter Plan of Treatment Upcoming Encounters Date Type Department Care Team (Late st Contact Info) Description 06/29/2024 14:15 EDT Office Visit [facility] [address] [place] [address] Jean Gann MD [address] [place] [address] documented as of this encounter Visit Diagnoses Not on filedocumented in this encounter Care Teams Rougher Helper Relationship Specialty Start Date End Date Jean Gann MD [address] [place] [phone] PCP - General 12/31/08 Manny Rizzo MD [address] [place] [phone] 04/20/10 documented as of this encounter
--- OUTSIDE RECORDS SUMMARY | 2024-06-10 07:19 | XMS_ITS | Encounter Summary ---
Author Organization [facility] Address [address] [place] [address] Care Team Providers Care Roller Die Cutting Machine Operator Name Role Phone Jean Munoz MD Primary Care Provider Manny Rizzo MD Unavailable Reason for Visit * Reason Onset Date Comments Appointment Related 10/06/2017 Encounter Details Date Type Department Care Team (Late st Contact Info) Description 10/06/2017 Telephone [facility] Foot & Ankle Program [place] [address] Astrid Roberts LPN [address] [place] [address] Appointment Related Social History Tobacco Use Types [...] encounter Miscellaneous Notes * Telephone Encounter - Astrid Roberts LPN - 10/06/2017 6145 EST Telephone call placed to pt regarding the date and time of arrival for upcoming surgery. Order faxed to [facility] for rolling knee walker. Astrid Roberts LPN 10/06/2017 16:00 documented in this encounter Plan of Treatment Upcoming Encounters Date Type Department Care Team (Late st Contact Info) Description 06/29/2024 14:15 EDT Office Visit [facility] [address] [place] [address] Jean Munoz MD [address] [place] [phone] documented as of this encounter Visit Diagnoses Not on filedocumented in this encounter Care Teams Roller Die Cutting Machine Operator Relationship Specialty Start Date End Date Jean Munoz MD [address] [place] [phone] PCP - General 12/31/08 Manny Rizzo MD [address] [place] [address] 04/20/10 documented as of this encounter
--- OUTSIDE RECORDS SUMMARY | 2024-06-10 07:19 | XMS_ITS | Encounter Summary ---
Author Organization [facility] Address [address] [place] [address] Care Team Providers Care Commanding Officer Motorized Squad Name Role Phone Jean Munoz MD Primary Care Provider Manny Rizzo MD Unavailable Afia Valle MD Unavailable Jesi Leong CROZE MACHINE OPERATOR Unavailable [phone] SaloJesi shanks CROZE MACHINE OPERATOR Unavailable Reason for Visit * Reason Comments Other Encounter Details Date Type Department Care Team (Late st Contact Info) Description 09/01/2017 Refill [facility] Family [facility] [address] [place], [place] [phone] Jean Munoz MD [address] [place] [phone] Other Social History Tobacco Use [...] NEEDED FOR sleep *daily limit 1 tablet 28 Tab 09/02/2017 09/22/2017 documented in this encounter Miscellaneous Notes * Telephone Encounter - Jean Munoz MD - 09/02/2017 0841 EST Script done, please call in to pharmacy and notify patient, thanks * Telephone Encounter - Yadira Mccauley RN - 09/01/2017 1423 EST Medication(s) Requested: ambien 5 Preferred Pharmacy: [facility] Is patient out of medication? Unknown Last Refill Date: 03/04/17 Last Visit Date with Ordering Provider: 06/29/17 Next Non-Acute Visit Date Scheduled with Care Team: 09/22/17 Yadira Mccauley RN 09/01/2017 14:23 documented in this encounter Plan of Treatment Upcoming Encounters Date Type Department Care Team (Late st Contact Info) Description 06/29/2024 14:15 EDT Office Visit [facility] [address] [place] [address] Jean Munoz MD [address] [place] [phone] documented as of this encounter [...] for Sleep. Daily Max: 5 mg Reorder 03/04/2017 09/01/2017 documented as of this encounter Additional Health Concerns Infection Onset Date Last Indicated Resolved Time R/O COVID-19 05/15/2022 05/15/2022 05/20/2022 22:1 6 EDT R/O COVID-19 11/14/2022 11/14/2022 11/14/2022 19:1 6 EST documented as of this encounter Care Teams Commanding Officer Motorized Squad Relationship Specialty Start Date End Date Jean Munoz MD [address] [place] [phone] PCP - General 12/31/08 Manny Rizzo MD [address] [place] [phone] 04/20/10 Afia Valle MD [address] [place] [address] [address] [place] [phone] Care Team Radiation Oncology 07/02/21 Jesi Leong, [facility] [address] [place] [phone] Railroad Maintenance Clerk 12/24/21 09/20/22 Jesi Leong [facility] [address] [place] [phone] Behavioral Health Railroad Maintenance ClerkSmash Piecer Care 10/19/22 01/23/24 documented as of this encounter
--- OUTSIDE RECORDS SUMMARY | 2024-06-10 07:19 | XMS_ITS | Encounter Summary ---
Author Organization [facility] Address [address] [place] [address] Care Team Providers Care Wide Area Network Administrator Name Role Phone Jean Munoz MD Primary Care Provider Manny Rizzo MD Unavailable Reason for Visit * Reason Comments Chronic Pain Follow up Encounter Details Date Type Department Care Team (Late st Contact Info) Description 12/14/2017 13:00 EDT Office Visit [facility] [address] [place], [place] [phone] Jean Munoz MD [address] [place] [phone] Chronic pain syndrome (Primary Dx); Insomnia, unspecified type Social History Tobacco Use [...] Sign Reading Time Taken Comments Blood Pressure 122/76 12/14/2017 1252 EDT Pulse 72 12/14/2017 1252 EDT Temperature 37.5 ??C (99.5 ??F) 12/14/2017 1252 EDT Respiratory Rate 17 12/14/2017 1252 EDT Oxygen Saturation - - Inhaled Oxygen [...] for Nausea. 30 Tab 2 12/14/2017 04/27/2018 traMADol (ULTRAM) 50 mg tabletIndications:Chronic pain syndrome TAKE ONE TABLET BY MOUTH EVERY SIX HOURS NEEDED FOR PAIN: daily max: 4 tabs (200mg) 60 Tab 2 12/14/2017 03/03/2018 zolpidem (AMBIEN) 5 mg tabletIndications:Insomni a, unspecified type Take 1 Tab by mouth at bedtime as needed for Sleep. Daily Max: 5 mg 28 Tab 2 12/14/2017 03/03/2018 HYDROcodone-acetaminophen (NORCO) 5-325 mg tabletIndications:Chronic pain syndrome Take 1-2 Tabs by mouth every 6 hours as needed for up to 28 days for Pain. Daily Max: 8 Tabs 112 Tab 12/16/2017 12/14/2017 HYDROcodone-acetaminophen (NORCO) 5-325 mg tabletIndications:Chronic pain syndrome Take 1-2 Tabs by mouth every 6 hours as needed for up to 28 days for Pain. Daily Max: 8 Tabs 112 Tab 01/13/2018 12/14/2017 HYDROcodone-acetaminophen (NORCO) 5-325 mg tabletIndications:Chronic pain syndrome Take 1-2 Tabs by mouth every 6 hours as needed for up to 28 days for Pain. Daily Max: 8 Tabs 112 Tab 02/10/2018 12/14/2017 documented in this encounter Progress Notes * Jean Munoz MD - 12/14/2017 1300 EDT Subjective: Patient ID: Liset Viera is an 56 y.o. female. Chief Complaint Patient presents with ??? Chronic Pain Follow up HPI Liset is a 56 year old female here for follow up of chronic pain, shelter therapeutic use of prescription opiate Has had surgery right foot 10/01 for tendon injury, past ankle fracture about 10 years ago Had fall afterwards Still in boot PT last week Using crutches Partial weight bearing Pain management we're making do Needs refills Active problem list, past medical history, past [...] no masst ??? Peptic ulcer 01/06/2006 S/p EGOzzie Ray Barium enema normal ??? Pharyngitis 02/10/00 [...] MOUTH TWICE DAILY 60 Cap 5 ??? montelukast (SINGULAIR) 10 mg tablet TAKE 1 TABLET BY MOUTH EVERY DAY 90 Tab 4 ??? naloxone (NARCAN) 4 mg/actuation nasal spray 1 Widen by nasal route as needed for Opioid Reversal. (Patient not taking: Reported on 11/25/2017) 1 Each 0 ??? omeprazole (PRILOSEC) 40 mg capsule Take 1 Cap by mouth daily. 90 Cap 3 ??? ondansetron (ZOFRAN) 4 mg tablet TAKE ONE TABLET BY MOUTH DAILY NEEDED for nausea 30 Tab 3 ??? roflumilast (DALIRESP) 500 mcg tablet Take [...] rarely ROS - See HPI Objective: BP 122/76 (BP Cuff Location: Left arm) Pulse 72 Temp 37.5 ??C (99.5 ??F) (Tympanic) Resp 17 LMP 01/11/1987 Physical Exam In walking boot Assessment: See below Plan: Liset was seen [...] FOR PAIN: daily max: 4 tabs (200mg) Insomnia, unspecified type - zolpidem (AMBIEN) 5 mg tablet; Take 1 Tab by mouth at bedtime as needed for Sleep. Daily Max: 5 mg Other orders - Cancel: Drug Screen 11, Urine (Amphetamine, Barbiturates, Benzodiazepine, Buprenorphine, Cannabinoids, Cocaine, Methamphetamine, Methadone, Opiates, Oxycodone, Propoxyphene) - Cancel: CT LOW DOSE LUNG CANCER ANNUAL SCREENING WO CONTRAST - promethazine (PHENERGAN) 12.5 mg tablet; Take 1 Tab by mouth every 6 hours as needed for Nausea. seems stable but polypharmacy is an issue Also still recovering from surgery Relying on friend for rides Unable to do UDS today Reviewed refill policy Defer CT I spent a total of 25 minutes of face to face time with the patient today, and 25 minutes was spentcounseling the patient on the above issues. Patient Education Topic: as above Method: Verbal Taught to: Patient Barriers: None Outcomes: Verbalized understanding Return in about 11 weeks (around 03/01/2018) for SERA. documented in this encounter Plan of Treatment Upcoming Encounters Date Type Department Care Team (Late st Contact Info) Description 06/29/2024 14:15 EDT Office Visit [facility] [address] [place] [address] Jean Munoz MD [address] [place] [phone] documented as of this encounter Visit Diagnoses Diagnosis Chronic pain syndrome- Primary Insomnia, unspecified type Screening for osteoporosis- Primary [...] Discontinue Reason Start Date End Da te oxyCODONE (ROXICODONE) 5 mg immediate release tablet Take 1 Tab by mouth every 4 hours as needed for Pain. Daily Max: 30 mg Therapy completed 10/11/2017 12/14/2017 HYDROcodone-acetaminophe n (NORCO) 5-325 mg tabletIndications:Chroni c pain syndrome Take 1-2 Tabs by mouth every 6 hours as needed for up to 28 days for Pain. Earliest Fill Date: 11/18/17 Daily Max: 8 Tabs Reorder 11/18/2017 12/14/2017 HYDROcodone-acetaminophe n (NORCO) 5-325 mg tabletIndications:Chroni c pain syndrome Take 1-2 Tabs by mouth every 6 hours as needed for up to 28 days for Pain. Earliest Fill Date: 10/21/17 Daily Max: 8 Tabs Reorder 10/21/2017 12/14/2017 HYDROcodone-acetaminophe n (NORCO) 5-325 mg tabletIndications:Chroni c pain syndrome Take 1-2 Tabs by mouth every 6 hours as needed for up to 28 days for Pain. Earliest Fill Date: 09/13/17 Daily Max: 8 Tabs Reorder 09/23/2017 12/14/2017 zolpidem (AMBIEN) 5 mg tabletIndications:Insomn ia, unspecified type Take 1 Tab by mouth at bedtime as needed for Sleep. Daily Max: 5 mg Reorder 09/30/2017 12/14/2017 traMADol (ULTRAM) 50 mg tabletIndications:Chroni c pain syndrome TAKE ONE TABLET BY MOUTH EVERY SIX HOURS NEEDED FOR PAIN: daily max: 4 tabs (200mg) Reorder 10/21/2017 12/14/2017 promethazine (PHENERGAN) 12.5 mg tablet Take 1 Tab by mouth every 6 hours as needed for Nausea. Reorder 10/11/2017 12/14/2017 documented as of this encounter Care Teams Wide Area Network Administrator Relationship Specialty Start Date End Date Jean Munoz MD [address] [place] [phone] PCP - General 12/31/08 Manny Rizzo MD [address] [place] [phone] 04/20/10 documented as of this encounter
--- OUTSIDE RECORDS SUMMARY | 2024-06-10 07:19 | XMS_ITS | Encounter Summary ---
Author Organization [facility] Address [address] [place] [address] Care Team Providers Care Clinic Coordinator Name Role Phone Jean Munoz MD Primary Care Provider Manny Rizzo MD Unavailable Reason for Visit * Reason Onset Date Comments Appointment Related 11/24/2017 Encounter Details Date Type Department Care Team (Late st Contact Info) Description 11/24/2017 Orders Only [facility] Foot & Ankle Program - [address] [phone] Liu Tilley MD [address] [place] [phone] Ankle arthritis (Primary Dx); Posterior tibial [...] EDT Office Visit [facility] [address] [place], [place] [phone] Jean Munoz MD [address] [place] [phone] documented as of this encounter Visit Diagnoses Diagnosis Ankle arthritis- [...] Last Ordered Date First Orde red Date PNEUMATIC WALKING BOOT - TALL ([id number]) 1 documented in this encounter Care Teams Clinic Coordinator Relationship Specialty Start Date End Date Jean Munoz MD [address] [place] [phone] PCP - General 12/31/08 Manny Rizzo MD [address] [place] [phone] 04/20/10 documented as of this encounter
--- OUTSIDE RECORDS SUMMARY | 2024-06-10 07:19 | XMS_ITS | Encounter Summary ---
Author Organization [facility] Address [address] [place] [address] Care Team Providers Care Sheet Metal Supervisor Name Role Phone Jean Munoz MD Primary Care Provider Manny Rizzo MD Unavailable Encounter Details Date Type Department Care Team (Late st Contact Info) Description 10/11/2017 Results Only Imaging [facility] Foot & Ankle Program - [address] [address] Liu Tilley MD [address] [place] [phone] Social History Tobacco Use Types Packs/Day [...] EDT Office Visit [facility] [address] [place] [address] Jean Munoz MD [address] [place] [address] documented as of this encounter Procedures Procedure Name Priority Date/Time Associated Diagnosis Comments PORT FLUORO UP TO 1 HOUR 10/11/2017 11:00 EST FOOT AP+LAT 10/11/2017 11:00 EST documented in this encounter Results * PORT FLUORO UP TO 1 HOUR (10/11/2017 11:00 EST) Anatomical Region Laterality Modality Other 10/11/2017 11:0 0 EST Narrative 10/11/2017 11:00 EST Non Reportable Exam Procedure Note ADMITTING REPRESENTATIVE, IMAGING - 10/11/2017 Non Reportable Exam Liu Tilley MD IMG FLUOROSCOPY O RDERABLES * FOOT AP+LAT (10/11/2017 11:00 EST) Anatomical Region Laterality Modality Other 10/11/2017 11:0 0 EST 10/11/2017 15:03 EST Narrative 10/11/2017 15:03 EST HISTORY: ?? Flexor digitorum longus transfer, calcaneal osteotomy, remove spurs from ankle on right COMPARISON: None EXAM/TECHNIQUE: FOOT AP+LAT ??10/11/2017 11:00 AM 2 fluoroscopic views FINDINGS / IMPRESSION: * ??Limited Fluoroscopic views demonstrating calcaneal osteotomy without evidence of hardware fracture. Attention on follow-up. Procedure Note Myles West MD - 10/11/2017 HISTORY: Flexor digitorum longus transfer, calcaneal osteotomy, remove spurs from ankle on right COMPARISON: None EXAM/TECHNIQUE: FOOT AP+LAT 10/11/2017 11:00 AM 2 fluoroscopic views FINDINGS / IMPRESSION: * Limited Fluoroscopic views demonstrating calcaneal osteotomy without evidence of hardware fracture. Attention on follow-up. Liu Tilley MD IMG DIAGNOSTIC IM AGING ORDERABLES documented in this encounter Visit Diagnoses Not on filedocumented in this encounter Care Teams Sheet Metal Supervisor Relationship Specialty Start Date End Date Jean Munoz MD [address] [place] [phone] PCP - General 12/31/08 Manny Rizzo MD [address] [place] [phone] 04/20/10 documented as of this encounter
--- OUTSIDE RECORDS SUMMARY | 2024-06-10 07:19 | XMS_ITS | Encounter Summary ---
Author Organization [facility] Address [address] [place] [address] Care Team Providers Care Medical Records Custodian Name Role Phone Jean Munoz MD Primary Care Provider Manny Rizzo MD Unavailable Afia Valle MD Unavailable [phone] Jesi Leong SUPERVISOR OF GUIDANCE AND TESTING Unavailable SaloJesi shanks SUPERVISOR OF GUIDANCE AND TESTING Unavailable Reason for Visit * Reason Comments Other Encounter Details Date Type Department Care Team (Late st Contact Info) Description 10/05/2017 Refill [facility] Family Medicine [facility] [address] [place], [place] [id number] Jean Munoz MD [address] [place] [phone] Other Social History Tobacco Use [...] TWICE DAILY 60 Cap 5 10/05/2017 03/06/2018 documented in this encounter Miscellaneous Notes * Telephone Encounter - Jean Munoz MD - 10/05/2017 1442 EST Script done, please call in to pharmacy and notify patient, thanks * Telephone Encounter - Yadira Mccauley RN - 10/05/2017 1348 EST Medication(s) Requested: lyrica 300 Preferred Pharmacy: [facility] Is patient out of medication? Unknown Last Refill Date: 04/15/17 Last Visit Date with Ordering Provider: 09/22/17 Next Non-Acute Visit Date Scheduled with Care Team:12/14/17 Yadira Mccauley RN 10/05/2017 13:48 documented in this encounter Plan of Treatment Upcoming Encounters Date Type Department Care Team (Late st Contact Info) Description 06/29/2024 14:15 EDT Office Visit [facility] [address] [place] [address] Jaen Munoz MD [address] [place] [address] documented as of this encounter Visit Diagnoses Diagnosis Chronic low back pain, unspecified back pain laterality, with sciatica presence unspecified Screening for osteoporosis- Primary Special screening [...] unspecified TAKE ONE CAPSULE BY MOUTH TWICE DAILY. daily max: 2 caps (600mg) Reorder 04/15/2017 10/05/2017 documented as of this encounter Additional Health Concerns Infection Onset Date Last Indicated Resolved Time R/O COVID-19 05/15/2022 05/15/2022 05/20/2022 22:1 6 EDT R/O COVID-19 11/14/2022 11/14/2022 11/14/2022 19:1 6 EST documented as of this encounter Care Teams Medical Records Custodian Relationship Specialty Start Date End Date Jean Munoz MD [address] [place] [phone] PCP - General 12/31/08 Manny Rizzo MD [address] [place] [phone] 04/20/10 Afia Valle MD [address] [place] [address] [address] [place] [phone] MD Care Team Radiation Oncology 07/02/21 Jesi Leong LICSW [address] [place] [address] [employer] 12/24/21 09/20/22 Jesi Leong LICSW [address] [place] [address] Behavioral Health [employer] Special Education Teacher Care 10/19/22 01/23/24 documented as of this encounter
--- OUTSIDE RECORDS SUMMARY | 2024-06-10 07:20 | XMS_ITS | Encounter Summary ---
Author Organization [facility] Address [address] [place] [address] Care Team Providers Care Hospice Liaison Name Role Phone Jean Munoz MD Primary Care Provider Manny Rizzo MD Unavailable Reason for Visit * Reason Comments Ankle Pain right Encounter Details Date Type Department Care Team (Late st Contact Info) Description 07/27/2017 14:15 EST Office Visit [facility] Foot & Ankle Program - [address] [address] Liu Tilley MD [address] [place] [address] Posterior tibial tendonitis, right (Primary Dx); Traumatic arthritis of right ankle Social History Tobacco Use Types Packs/Day Years [...] Progress Notes * Liu Tilley MD - 07/27/2017 1415 EST PROGRESS NOTE/FOLLOWUP NOTE Chief Complaint Patient presents with ??? Ankle Pain right SUBJECTIVE: Liset Viera came in today in follow up of degenerative right posterior tibial tendon. Today she said that things are still the same despite being in the lace up brace. She said that the brace really makes things worse. REVIEW OF SYSTEMS: Negative except for pertinent positives listed above. OBJECTIVE: Patient is in no acute distress. Right Ankle: Skin: Intact, no skin changes. Pulses: Nicely palpable. Sensation: Very little posterior tibial tendon strength. Strength: Intact. Musculoskeletal: Tender along the posterior tibial tendon and along peroneals. Some subfibular impingement. Tender in sinus tarsi. Standing her arch does collapse. Some tenderness over entire aspect of anterior ankle. IMAGING: X-rays: Three views of right ankle, weightbearing, obtained here in March were independently reviewed by me and demonstrate ankle osteophytes with intact subtalar and TN joints. MRI scan done in June 2017 demonstrated degenerative posterior tibial tendon, with longitudinal tears and surrounded by inflammation. There is anterior ankle spurring at the tibiotalar joint. ASSESSMENT AND PLAN: The patient has degenerative posterior tibial tendon, as well as some ankle arthritis. She has had no resolution of symptoms with boot or lace up brace and we discussed the option of Dena brace today. However, if she does not feel much better in a boot or lace up brace, she likely will not feel a lot better in an Dena brace. She can continue to alternate between boot and lace up brace to continue treating conservatively. Surgical option was reviewed again today, but will take her off her feet completely for 6 weeks. She would require excision of the posterior tibial tendon with transposition of the FDL tendon, as well as calcaneal osteotomy to get the foot into a better position. The surgical procedure was described in detail, as well as expected recovery time and rehab. After thorough discussion and once all questions were answered, the patient did want to go ahead with surgery. The risks, benefits and potential complications of surgery were discussed in detail withthe patient. We had her meet with our surgical pathologist to schedule surgery at her earliest convenience. The patient will be seen back two weeks postop. Sean Kat, am scribing for Dr. Liu Tilley, while he is personally performing the service. 07/27/2017 14:18 Cc: Jean Munoz Cc: Alexander * Astrid Roberts LPN - 07/27/2017 1415 EST Patient Education Topic: Preop education Method: handout, verbal Taught to: patient, family Barriers: none Outcomes: Independent Signature: Astrid Roberts LPN 07/27/2017 15:19 documented in this encounter Plan of Treatment Upcoming Encounters Date Type Department Care Team (Late st Contact Info) Description 06/29/2024 14:15 EDT Office Visit [facility] Medicine [facility] [address] [place] [address] Jean Munoz MD [address] [place] [address] documented as of this encounter Visit Diagnoses Diagnosis Posterior tibial tendonitis, right- Primary Traumatic arthritis of right ankle Screening for osteoporosis- Primary Special screening for osteoporosis Primary narcolepsy without cataplexy Chronic pain syndrome Chronic low back pain Lumbago Chronic use of opiate for therapeutic purpose Pain medication agreement Encounter for long-term (current) use of other medications Screen for colon cancer Special screening for malignant neoplasms, colon documented in this encounter Care Teams Hospice Liaison Relationship Specialty Start Date End Date Jean Munoz MD [address] [place] [phone] PCP - General 12/31/08 Manny Rizzo MD [address] [place] [phone] 04/20/10 documented as of this encounter
--- OUTSIDE RECORDS SUMMARY | 2024-06-10 07:20 | XMS_ITS | Encounter Summary ---
Author Organization [facility] Address [address] [place] [address] Care Team Providers Care Software Quality Test Engineer Name Role Phone Jean Munoz MD Primary Care Provider Manny Rizzo MD Unavailable Reason for Visit * Reason Onset Date Comments Prior Auth, Medication 06/10/2017 Lyrica Encounter Details Date Type Department Care Team (Late st Contact Info) Description 06/10/2017 Telephone [facility] [address] [place] [address] Kaitlyn Montero LPN [address] [place] [address] Prior Auth, Medication (Lyrica ) Social History Tobacco Use Types Packs/Day [...] Telephone Encounter - Kaitlyn Montero LPN - 06/10/2017 1632 EDT Medication:Lyrica 300 mg Insurance Co: [place] Medicaid Approval # (if applicable): [id number] Approval dates: 06/10/2017-06/10/2018 Name of Pharmacy notified: [facility] * Telephone Encounter - Kaitlyn Montero LPN - 06/10/2017 1127 EDT PA sent to insurance for Lyrica. Waiting for response. Kaitlyn Montero LPN documented in this encounter Plan of Treatment Upcoming Encounters Date Type Department Care Team (Late st Contact Info) Description 06/29/2024 14:15 EDT Office Visit [facility] Medicine [facility] [address] [place] [address] Jean Munoz MD [address] [place] [address] documented as of this encounter Visit Diagnoses Not on filedocumented in this encounter Care Teams Software Quality Test Engineer Relationship Specialty Start Date End Date Jean Munoz MD [address] [place] [address] PCP - General 12/31/08 Manny Rizzo MD [address] [place] [address] 04/20/10 documented as of this encounter
--- OUTSIDE RECORDS SUMMARY | 2024-06-10 07:20 | XMS_ITS | Encounter Summary ---
Author Organization [facility] Address [address] [place] [address] Care Team Providers Care Cattle Dipper Name Role Phone Jean Munoz MD Primary Care Provider Manny Rizzo MD Unavailable Reason for Visit * Reason Onset Date Comments Medication Management 05/18/2017 Encounter Details Date Type Department Care Team (Late st Contact Info) Description 05/18/2017 Orders Only [address] [phone] Kaitlyn Montero LPN [address] [place] [address] Social History Tobacco Use Types Packs/Day Years [...] Office Visit [facility] [address] [place] [address] Jean Munoz MD [address] [place] [phone] documented as of this encounter Visit Diagnoses Not on filedocumented in this encounter Care Teams Cattle Dipper Relationship Specialty Start Date End Date Jean Munoz MD [address] [place] [phone] PCP - General 12/31/08 Manny Rizzo MD [address] [place] [address] 04/20/10 documented as of this encounter
--- OUTSIDE RECORDS SUMMARY | 2024-06-10 07:20 | XMS_ITS | Encounter Summary ---
Author Organization [facility] Address [address] [place] [address] Care Team Providers Care Sorter Lumber Straightener Name Role Phone Jean Munoz MD Primary Care Provider Manny Rizzo MD Unavailable Reason for Visit * Reason Comments Medication Management Hydrocodone & Tram adol taking for chronic pain; b/l knees, low back, R foot Encounter Details Date Type Department Care Team (Late st Contact Info) Description 06/29/2017 13:30 EDT Office Visit [facility] [address] [place] [address] Jean Munoz MD [address] [place] [address] Need for vaccination (Primary Dx); Chronic pain syndrome Social History Tobacco Use Types Packs/Day Years [...] Reading Time Taken Comments Blood Pressure 118/78 06/29/2017 1320 EDT Pulse 80 06/29/2017 1320 EDT Temperature 36.8 ??C (98.2 ??F) 06/29/2017 1320 EDT Respiratory Rate 16 06/29/2017 1320 EDT Oxygen Saturation - - Inhaled Oxygen [...] days for Pain. Daily Max: 200 mg 28 Tab 2 07/01/2017 09/22/2017 HYDROcodone-acetaminophen (NORCO) 5-325 mg tabletIndications:Chronic pain syndrome Take 1-2 Tabs by mouth every 6 hours as needed for up to 28 days for Pain. Earliest Fill Date: 06/29/17 Daily Max: 8 Tabs 112 Tab 07/01/2017 09/22/2017 HYDROcodone-acetaminophen (NORCO) 5-325 mg tabletIndications:Chronic pain syndrome Take 1-2 Tabs by mouth every 6 hours as needed for up to 28 days for Pain. Earliest Fill Date: 07/29/17 Daily Max: 8 Tabs 112 Tab 07/29/2017 09/22/2017 HYDROcodone-acetaminophen (NORCO) 5-325 mg tabletIndications:Chronic pain syndrome Take 1-2 Tabs by mouth every 6 hours as needed for up to 28 days for Pain. Earliest Fill Date: 08/26/17 Daily Max: 8 Tabs 112 Tab 08/26/2017 09/22/2017 documented in this encounter Progress Notes * Jean Munoz MD - 06/29/2017 1330 EDT Subjective: Patient ID: Liset Viera is an 56 y.o. female. Chief Complaint Patient presents with ??? Medication Management Hydrocodone & Tramadol taking for chronic pain; b/l knees, low back, R foot HPI Liset is a 56-year-old female here for follow-up Will go to [place] to help daughter who is ill, ?kidney stones vs pancreas problem Has PCOS, was on metfomin Has had right foot pain Has right foot boot F/U [place] pending Patient Active Problem List Diagnosis ??? 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 Gastroesophageal reflux disease ??? Chronic back pain ??? Obesity ??? Cervicalgia ??? Impaired glucose tolerance ??? Migraine ??? Peptic ulcer ??? Restless legs syndrome ??? Insomnia [...] eyeglasses ??? Chronic fatigue ??? Panlobular emphysema (HCC) ??? Blurry vision, bilateral ??? Pyogenic granuloma of eyelid ??? Other disorders of eyelid ??? Fibromyalgia ??? Nausea ??? Steroid-induced hyperglycemia ??? Right ankle pain ??? KATJA (obstructive sleep apnea) ??? Moderate obstructive sleep apnea Past Medical History: Diagnosis Date ??? Abdominal [...] of leg 12/31/2009 ??? Emphysema of lung (HCC) ??? Environmental allergies ??? Fever, unspecified [...] ov cyst/mass, 10/01/08 MRI no masst ??? Pharyngitis 02/10/00 ??? Pneumonia 04/07/06 ??? [...] MOUTH EVERY DAY 90 Cap 1 ??? [START ON 07/16/2017] fexofenadine (JUDITH) 180 mg tablet Take 1 [...] needed for Wheezing. 3 mL 3 ??? lanc[place] [employer] Brand: One Touch Delica 100 Each 2 ??? montelukast (SINGULAIR) 10 mg tablet TAKE 1 TABLET BY MOUTH EVERY DAY 90 Tab 4 ??? naloxone (NARCAN) 4 mg/actuation nasal spray 1 [place] by nasal route as needed for Opioid [...] by mouth as needed for migraine *daily maximumdose 2 tablets 9 Tab 1 ??? tamsulosin (FLOMAX) 0.4 mg capsule Take 1 Cap by mouth daily. 90 Cap 3 ??? XOPENEX HFA 45 mcg/actuation inhaler INHALE TWO PUFFS BY MOUTH EVERY SIX HOURS NEEDED 45 g 5 ??? zolpidem (AMBIEN) 5 mg tablet Take 1 Tab by mouth at bedtime as needed for Sleep. Daily Max: 5 mg 28 Tab 5 No current facility-administered medications on file prior to visit. Allergies Allergen Reactions ??? Toradol [Ketorolac Tromethamine] Hives ??? Motrin [Ibuprofen] Itching Social Social History Substance Use Topics ??? Smoking status: Former Smoker Packs/day: 1.50 Years: 52.50 Types: Cigarettes Start date: 09/13/1975 Quit date: 09/13/2012 ??? Smokeless tobacco: Never Used ??? Alcohol use No Comment: rarely ROS - See HPI Objective: BP 118/78 (BP Cuff Location: Right arm, Patient Position: Sitting, BP Cuff Sizes: Adult, regular) Pulse 80 Temp 36.8 ??C (98.2 ??F) (Tympanic) Resp 16 LMP 01/11/1987 Physical Exam right foot walking boot Assessment: See below Plan: Liset was seen today for medication management. Diagnoses and all orders for this visit: Need for vaccination - ENA099 - Influenza Vaccine Quad Preservative Free 0.5 ml IM Chronic pain syndrome - HYDROcodone-acetaminophen (NORCO) 5-325 mg tablet; Take 1-2 Tabs by mouth every 6 hours as neededfor up to 28 days for Pain. Earliest Fill Date: 08/26/17 Daily Max: 8 Tabs - HYDROcodone-acetaminophen (NORCO) 5-325 mg tablet; Take 1-2 Tabs by mouth every 6 hours as neededfor up to 28 days for Pain. Earliest Fill Date: 07/29/17 Daily Max: 8 Tabs - HYDROcodone-acetaminophen (NORCO) 5-325 mg tablet; Take 1-2 Tabs by mouth every 6 hours as neededfor up to 28 days for Pain. Earliest Fill Date: 06/29/17 Daily Max: 8 Tabs - traMADol (ULTRAM) 50 mg tablet; Take 1 Tab by mouth every 6 hours as needed for up to 28 days forPain. Daily Max: 200 mg Chronic pain stable Refill meds today Follow-up Dr. Tilley as scheduled Patient Education Topic: as above Method: Verbal Taught to: Patient Barriers: None Outcomes: Verbalized understanding Return in 3 months (on 09/23/2017) for ROV. * Kaitlyn Montero LPN - 06/29/2017 1330 EDT Flu vaccine administered as ordered per Dr. Munoz. See immunization record for details. Patient advised to wait 10 minutes after administration for observation of possible adverse reaction. documented in this encounter Plan of Treatment Upcoming Encounters Date Type Department Care Team (Late st Contact Info) Description 06/29/2024 14:15 EDT Office Visit [facility] [address] [place] [address] Jean Munoz MD [address] [place] [address] documented as of this encounter Visit Diagnoses Diagnosis Need for vaccination- Primary Need for prophylactic vaccination and inoculation against unspecified single disease Chronic pain syndrome Screening for osteoporosis- Primary [...] 28 days for Pain. Earliest Fill Date: 06/03/17 Daily Max: 8 Tabs Reorder 06/03/2017 06/29/2017 HYDROcodone-acetaminoph en (NORCO) 5-325 mg tabletIndications:Chron ic pain syndrome Take 1-2 Tabs by mouth every 6 hours as needed for up to 28 days for Pain. Earliest Fill Date: 05/06/17 Daily Max: 8 Tabs Reorder 05/06/2017 06/29/2017 HYDROcodone-acetaminoph en (NORCO) 5-325 mg tabletIndications:Chron ic pain syndrome Take 1-2 Tabs by mouth every 6 hours as needed for up to 28 days for Pain. Earliest Fill Date: 04/08/17 Daily Max: 8 Tabs Reorder 04/08/2017 06/29/2017 traMADol (ULTRAM) 50 mg tablet Take 1 Tab by mouth every 6 hours as needed for Pain. Daily Max: 200 mg Reorder 06/01/2017 06/29/2017 documented as of this encounter Orders Immunization/Injection Count Last Ordered Date First Ordered Date INFLUENZA VACCINE QUAD PRESE RVATIVE FREE 0.5 ML IM 1 06/29/2017 documented in this encounter Care Teams Sorter Lumber Straightener Relationship Specialty Start Date End Date Jean Munoz MD [address] [place] [phone] PCP - General 12/31/08 Manny Rizzo MD [address] [place] [address] 04/20/10 documented as of this encounter
--- OUTSIDE RECORDS SUMMARY | 2024-06-10 07:20 | XMS_ITS | Encounter Summary ---
Author Organization [facility] Address [address] [place] [address] Care Team Providers Care Tight Barrel Inspector Name Role Phone Jean Munoz MD Primary Care Provider Manny Rizzo MD Unavailable Reason for Visit * Reason Comments Chronic Pain Encounter Details Date Type Department Care Team (Latest Contact Info) Description 06/01/2017 13:00 EDT Office Visit [facility] [address] [place] [address] Jean Munoz MD [address] [place] [phone] Chronic pain syndrome (Primary Dx); Viral syndrome; Migraine without status migrainosus, not intractable, unspecified migraine type; Seasonal allergic rhinitis, unspecified allergic rhinitis trigger; Gastroesophageal reflux disease, esophagitis presence not specified; Nausea; Hesitancy; Rosacea; Chronic obstructive pulmonary disease, unspecified COPD type (CMS-HCC) (HCC-CMS); Nausea and vomiting, intractability of vomiting not specified, unspecified vomiting type; Moderate persistent asthma without complication Social History Tobacco Use Types Packs/Day Years [...] Reading Time Taken Comments Blood Pressure 124/72 06/01/2017 1258 EDT Pulse 76 06/01/2017 1258 EDT Temperature 36.9 ??C (98.5 ??F) 06/01/2017 1258 EDT Respiratory Rate 16 06/01/2017 1258 EDT Oxygen Saturation - - Inhaled Oxygen [...] End Da te traMADol (ULTRAM) 50 mg tablet Take 1 Tab by mouth every 6 hours as needed for Pain. Daily Max: 200 mg 30 Tab 06/01/2017 06/29/2017 ipratropium-albuterol (DUONEB) 0.5 mg-3 mg(2.5 mg base)/3 mL nebulizer solutionIndications:Mode rate persistent asthma without complication Take 3 mL by nebulization every 4 hours as needed for Wheezing. 3 mL 3 06/01/2017 08/18/2018 promethazine (PHENERGAN) 25 mg tabletIndications:Nausea and vomiting, intractability of vomiting not specified, unspecified vomiting type Take 1 Tab by mouth every 6 hours as needed for Nausea. 20 Tab 3 06/01/2017 10/11/2017 roflumilast (DALIRESP) 500 mcg tabletIndications:Chroni c obstructive pulmonary disease, unspecified COPD type (HCC-CMS) Take 1 Tab by mouth daily. 90 Tab 1 10/15/2017 04/06/2018 doxycycline (VIBRAMYCIN) 100 mg capsuleIndications:Rosac ea TAKE 1 CAPSULE BY MOUTH EVERY DAY 90 Cap 1 10/15/2017 04/05/2018 amLODIPine (NORVASC) 5 mg tabletIndications:Migrai ne without status migrainosus, not intractable, unspecified migraine type Take 1 Tab by mouth daily. 90 Tab 3 06/01/2017 05/26/2018 naloxone (NARCAN) 4 mg/actuation nasal spray 1 [place] by nasal route as needed for Opioid Reversal. 1 Each 06/01/2017 04/17/2018 tamsulosin (FLOMAX) 0.4 mg capsuleIndications:Hesit eloise Take 1 Cap by mouth daily. 90 Cap 3 06/01/2017 05/26/2018 ondansetron (ZOFRAN) 4 mg tabletIndications:Nausea TAKE ONE TABLET BY MOUTH DAILY NEEDED for nausea 30 Tab 3 06/01/2017 04/04/2018 omeprazole (PRILOSEC) 40 mg capsuleIndications:Gastr oesophageal reflux disease, esophagitis presence not specified Take 1 Cap by mouth daily. 90 Cap 3 06/01/2017 05/26/2018 fexofenadine (JUDITH) 180 mg tablet Take 1 Tab by mouth daily. 90 Tab 3 07/16/2017 05/26/2018 Ciclesonide 50 mcg spray,non-aerosolIndicat ions:Seasonal allergic rhinitis, unspecified allergic rhinitis trigger 100 mcg by nasal route daily. 37.5 g 1 06/01/2017 06/02/2017 HYDROcodone-acetaminophe n (NORCO) 5-325 mg tabletIndications:Chroni c pain syndrome Take 1-2 Tabs by mouth every 6 hours as needed for up to 28 days for Pain. Earliest Fill Date: 06/03/17 Daily Max: 8 Tabs 112 Tab 06/03/2017 06/29/2017 documented in this encounter Progress Notes * Jean Munoz MD - 06/01/2017 1300 EDT Subjective: Patient ID: Liset Viera is an 56 y.o. female. Chief Complaint Patient presents with ??? Chronic Pain HPI Liset is a 56-year-old female here for follow-up of chronic pain She has been feeling sick recently Onset about 3 days ago Fever, chills, sweats, nausea, vomiting, diarrhea, headache, sore throat, some cough Also chronic pain Continues on hydrocodone Does not have prescription for Narcan Also migraine headaches Uses Imitrex as needed Active problem list, past medical history, past surgical history, medications, allergies, family history and social history were reviewed. Patient Active Problem List Diagnosis ??? Severe major depression without psychotic features ??? Gastroesophageal reflux disease ??? Chronic back [...] to internal orthopedic device, implant, and graft ??? Degeneration of lumbar or lumbosacral intervertebral disc ??? Hesitancy ??? Dizziness ??? Wears eyeglasses ??? Chronic fatigue ??? Panlobular emphysema ??? Blurry vision, bilateral ??? Pyogenic granuloma of eyelid ??? Other disorders of eyelid ??? Fibromyalgia ??? Nausea ??? Steroid-induced hyperglycemia ??? Right ankle pain ??? KATJA (obstructive sleep apnea) Past Medical History: Diagnosis Date ??? Abdominal [...] of leg 12/31/2009 ??? Emphysema of lung ??? Environmental allergies ??? Fever, unspecified 08/26/04 [...] times daily as needed for Constipation. ??? fluticasone-salmeterol (ADVAIR HFA) 115-21 mcg/actuation inhaler Inhale 1 Puff as directed 2 times daily. 1 Inhaler 11 ??? HYDROcodone-acetaminophen (NORCO) 5-325 mg tablet Take 1-2 Tabs by mouth every 6 hours as needed for up to 28 days for Pain. Earliest Fill Date: 05/06/17 Daily Max: 8 Tabs 112 Tab 0 ??? HYDROcodone-acetaminophen (NORCO) 5-325 mg tablet Take 1-2 Tabs by mouth every 6 hours as needed for up to 28 days for Pain. Earliest Fill Date: 04/08/17 Daily Max: 8 Tabs 112 Tab 0 ??? hydroxypropyl methylcellulose (ISOPTO TEARS) 0.5 % ophthalmic solution Place 1 Drop into both eyes 5 times daily. ??? lancets Brand: One Touch Delica 100 Each 2 ??? montelukast (SINGULAIR) 10 mg tablet TAKE 1 TABLET BY MOUTH EVERY DAY 90 Tab 4 ??? pregabalin (LYRICA) 300 mg capsule TAKE ONE CAPSULE BY MOUTH TWICE DAILY. daily max: 2 caps (600mg) 60 Cap 5 ??? rOPINIRole (REQUIP) 2 mg tablet TAKE 1 TABLET BY MOUTH NIGHTLY AT BEDTIME 90 Tab 4 ??? sertraline (ZOLOFT) 100 mg tablet TAKE TWO TABLETS BY MOUTH DAILY 180 Tab 4 ??? sumatriptan (IMITREX) 50 mg tablet take 1 tablet by mouth as needed for migraine *daily maximumdose 2 tablets 9 Tab 1 ??? XOPENEX HFA 45 mcg/actuation inhaler INHALE [...] 124/72 (BP Cuff Location: Left arm) Pulse 76 Temp 36.9 ??C (98.5 ??F) (Tympanic) Resp 16 LMP 01/11/1987 Physical Exam Alert, cooperative Vital signs as noted Heat AT, NC Eyes PERRL, EOMI Ear TMs normal bilateral OP no erythema, exudate Neck no LAD, no JVD Heart RRR, no murmur Lungs CTA Abdomen soft, NT Extremities no edema Assessment: See below Plan: Liset was seen today for chronic pain. Diagnoses and all orders for this visit: Chronic pain syndrome - HYDROcodone-acetaminophen (NORCO) 5-325 mg tablet; Take 1-2 Tabs by mouth every 6 hours as neededfor up to 28 days for Pain. Earliest Fill Date: 06/03/17 Daily Max: 8 Tabs Forms completed today A Book Buyback([place] [employer]) report on this patient was printed and reviewed today to ensure the prescribing and dispensing of their medications is in accordance with the treatment plan. We discussed Narcan prescription but it appears that she is not always taking 2 tablets of hydrocodone at a time, therefore may not exceed 90 and BD DD threshold Viral syndrome Suspect viral URI Rest Fluids Medications for symptoms as needed We will hold on antibiotics for now Migraine without status migrainosus, not intractable, unspecified migraine type - amLODIPine (NORVASC) 5 mg tablet; Take 1 Tab by mouth daily. Seasonal allergic rhinitis, unspecified allergic rhinitis trigger - Ciclesonide 50 mcg spray,non-aerosol; 100 mcg by nasal route daily. - fexofenadine (JUDITH) 180 mg tablet; Take 1 Tab by mouth daily. Gastroesophageal reflux disease, esophagitis presence not specified - omeprazole (PRILOSEC) 40 mg capsule; Take 1 Cap by mouth daily. Nausea - ondansetron (ZOFRAN) 4 mg tablet; TAKE ONE TABLET BY MOUTH DAILY NEEDED for nausea Hesitancy - tamsulosin (FLOMAX) 0.4 mg capsule; Take 1 Cap by mouth daily. Rosacea - doxycycline (VIBRAMYCIN) 100 mg capsule; TAKE 1 CAPSULE BY MOUTH EVERY DAY Chronic obstructive pulmonary disease, unspecified COPD type - roflumilast (DALIRESP) 500 mcg tablet; Take 1 Tab by mouth daily. Nausea and vomiting, intractability of vomiting not specified, unspecified vomiting type - promethazine (PHENERGAN) 25 mg tablet; Take 1 Tab by mouth every 6 hours as needed for Nausea. Moderate persistent asthma without complication - ipratropium-albuterol (DUONEB) 0.5 mg-3 mg(2.5 mg base)/3 mL nebulizer solution; Take 3 mL by nebulization every 4 hours as needed for Wheezing. - naloxone (NARCAN) 4 mg/actuation nasal spray; 1 [place] by nasal route as needed for Opioid Reversal. - traMADol (ULTRAM) 50 mg tablet; Take 1 Tab by mouth every 6 hours as needed for Pain. Daily Max: 200 mg Patient Education Topic: as above Method: Verbal Taught to: Patient Barriers: None Outcomes: Verbalized understanding Return in about 4 weeks (around 07/01/2017) for SERA chronic pain. documented in this encounter Plan of Treatment Upcoming Encounters Date Type Department Care Team (Late st Contact Info) Description 06/29/2024 14:15 EDT Office Visit [facility] [address] [address] Jean Munoz MD [address] [place] [phone] documented as of this encounter Visit Diagnoses Diagnosis Chronic pain syndrome- Primary Viral syndrome Unspecified viral infection, in conditions classified elsewhere and of unspecified site Migraine without status migrainosus, not intractable, unspecified migraine type Seasonal allergic rhinitis, unspecified allergic rhinitis trigger Gastroesophageal reflux disease, esophagitis presence not specified Nausea Nausea alone Hesitancy Urinary hesitancy Rosacea Chronic obstructive pulmonary disease, unspecified COPD type ([facility]) Nausea and vomiting, intractability of vomiting not specified, unspecified vomiting type Moderate persistent asthma without complication Unspecified asthma Screening for osteoporosis- Primary Special [...] Discontinue Reason Start Date End Da te guaiFENesin (MUCINEX) 600 mg SR tablet Take 1 Tab by mouth 2 times daily. Patient Stopped Taking 01/04/2017 06/01/2017 metFORMIN (GLUCOPHAGE) 500 mg tablet Take 1 Tab by mouth 2 times daily. While on steroid taper Patient Stopped Taking 01/04/2017 06/01/2017 baclofen (LIORESAL) 10 mg tabletIndications:Chron ic pain syndrome Take 1 Tab by mouth 3 times daily as needed (mucles tightness). Patient Stopped Taking 04/13/2016 06/01/2017 HYDROcodone-acetaminoph en (NORCO) 5-325 mg tabletIndications:Chron ic pain syndrome Take 1-2 Tabs by mouth every 6 hours as needed for up to 28 days for Pain. Earliest Fill Date: 03/11/17 Daily Max: 8 Tabs Reorder 03/11/2017 06/01/2017 Ciclesonide 50 mcg spray,non-aerosolIndica tions:Seasonal allergic rhinitis 100 mcg by nasal route daily. Reorder 05/08/2016 06/01/2017 fexofenadine (JUDITH) 180 mg tablet Take 1 Tab by mouth daily. Reorder 04/15/2017 06/01/2017 omeprazole (PRILOSEC) 40 mg capsuleIndications:Benja roesophageal reflux disease, esophagitis presence not specified Take 1 Cap by mouth daily. Reorder 04/13/2016 06/01/2017 ondansetron (ZOFRAN) 4 mg tabletIndications:Nause a TAKE ONE TABLET BY MOUTH DAILY NEEDED for nausea Reorder 04/13/2016 06/01/2017 tamsulosin (FLOMAX) 0.4 mg capsuleIndications:Hesi tancy Take 1 Cap by mouth daily. Reorder 04/13/2016 06/01/2017 amLODIPine (NORVASC) 2.5 mg tabletIndications:Migra ine without status migrainosus, not intractable, unspecified migraine type Take 1 Tab by mouth daily. Reorder 05/14/2017 06/01/2017 doxycycline (VIBRAMYCIN) 100 mg capsuleIndications:Elaine cea TAKE 1 CAPSULE BY MOUTH EVERY DAY Reorder 04/14/2017 06/01/2017 DALIRESP 500 mcg tabletIndications:Chron ic obstructive pulmonary disease, unspecified COPD type (HCC-CMS) TAKE 1 TABLET BY MOUTH EVERY DAY Reorder 04/14/2017 06/01/2017 promethazine (PHENERGAN) 25 mg tabletIndications:Nause a and vomiting, intractability of vomiting not specified, unspecified vomiting type Take 1 Tab by mouth every 6 hours as needed for Nausea. Reorder 12/23/2016 06/01/2017 ipratropium-albuterol (DUONEB) 0.5 mg-3 mg(2.5 mg base)/3 mL nebulizer solutionIndications:Mod erate persistent asthma without complication Take 3 mL by nebulization every 4 hours as needed for Wheezing. Reorder 04/13/2016 06/01/2017 documented as of this encounter Care Teams Tight Barrel Inspector Relationship Specialty Start Date End Date Jean Munoz MD [address] [place] [phone] PCP - General 12/31/08 Manny Rizzo MD [address] [place] [phone] 04/20/10 documented as of this encounter
--- OUTSIDE RECORDS SUMMARY | 2024-06-10 07:20 | XMS_ITS | Encounter Summary ---
Author Organization [facility] Address [address] [place] [address] Care Team Providers Care Rn Documentation Name Role Phone Jean Munoz MD Primary Care Provider Manny Rizzo MD Unavailable Reason for Visit * Reason Onset Date Comments Medication Questions 05/04/2017 Encounter Details Date Type Department Care Team (Late st Contact Info) Description 05/04/2017 Telephone [facility] [address] [place] [address] Jean Munoz MD [address] [place] [phone] Medication Questions Social History Tobacco Use [...] Telephone Encounter - Yadira Mccauley RN - 05/04/2017 0933 EDT Notified pharmacy and pt of Dr. Munoz note. * Telephone Encounter - Jean Munoz MD - 05/04/2017 0926 EDT Ok to fill on 05/06, she has appointment on 06/01 so she should be OK until then * Telephone Encounter - Yadira Mccauley RN - 05/04/2017 0831 EDT Per 04/07/17 telephone enc: Rukhsana Molina Pt called wondering why the pharmacist has a note on the hydrocodone 04/08 prescription that patientis not to fill this prescription before 04/15. ?? I called Andrei at [facility] and he stated that there is a note on the 04/08 hydrocodone prescriptionstating per Judith, patient is not to have this prescription filled before 04/15 due to the fact that she had picked up the previous scripts early. Andrei stated that pt picked up 112 tab on February 18 (scripted dated 02/18) and 112 tabs on March 11 (script dated 03/11). Outgoing call to pharmacy. The 03/11/17 script was filled a week earlier in February because of a wedding. Prior to this fill date,it was filled on 02/18/17 Per pharmacy, Judith stated to fill the script on 03/11/17 (early script) and push the subsequent scripts back 1 week because the patient received an extra week. However, on 04/08/17 the pharmacy called to ask if pt can get the next script and per pharmacy, Lena stated to fill based on script start date of 04/08/17. Pt received #112 on the following dates: 02/18/17 03/11/17 04/08/17 Pt is stating she will be out this 05/06/17; script at pharmacy is not due to fill until 05/13/17. Incoming call from pt; she is taking 4 per day. Went to her daughter's wedding 03/13/17 in [place] and took extra during this time. Routed to pcp to advise if pharmacy should fill script on 05/06/17 or 05/13/17. * Telephone Encounter - Cat Armijo - 05/04/2017 0821 EDT Reason for Call: Medication Questions - needs permission for filling script for oxycodone for May 06 instead of the . Original paper script written for 05/06. Liset went [facility] that was aware that she would be taking 2 tabs instead of her normal dose of 1 tab because of the activities at the wedding. For her March script, the covering provider (while was on vacation) told the pharmacy to fill the oxycodone script and that the next script would have to be 1 week later than originally written. Script for 05/06 can't be filled until 05/13 unless authorization is received from our office. Liset will be out of this medication on 05/06. Summary/Symptoms: Onset and Duration? Appointment Offered? N/A Cat Armijo 05/04/2017 8:21 documented in this encounter Plan of Treatment Upcoming Encounters Date Type Department Care Team (Late st Contact Info) Description 06/29/2024 14:15 EDT Office Visit [facility] [address] [place] [address] Jean Munoz MD [address] [place] [phone] documented as of this encounter Visit Diagnoses Not on filedocumented in this encounter Care Teams Rn Documentation Relationship Specialty Start Date End Date Jean Munoz MD [address] [place] [phone] PCP - General 12/31/08 Manny Rizzo MD [address] [place] [phone] 04/20/10 documented as of this encounter
--- OUTSIDE RECORDS SUMMARY | 2024-06-10 07:20 | XMS_ITS | Encounter Summary ---
Author Organization [facility] Address [address] [place] [address] Care Team Providers Care Caddymaster Name Role Phone Jean Munoz MD Primary Care Provider Manny Rizzo MD Unavailable Reason for Visit * Reason Comments Other Encounter Details Date Type Department Care Team (Late st Contact Info) Description 05/22/2017 [facility] [address] [place] [address] Jean Munoz MD [address] [place] [phone] Other Social History Tobacco Use Types [...] Dispensed Refills Start Date End Da te sertraline (ZOLOFT) 100 mg tabletIndications:Major depressive disorder, recurrent, severe without psychotic features ([facility]-CMS) TAKE TWO TABLETS BY MOUTH DAILY 180 Tab 4 05/24/2017 05/26/2018 XOPENEX HFA 45 mcg/actuation inhalerIndications:Modera te persistent asthma without complication INHALE TWO PUFFS BY MOUTH EVERY SIX HOURS NEEDED 45 g 5 05/24/2017 05/26/2018 rOPINIRole (REQUIP) 2 mg tabletIndications:Restles s legs syndrome TAKE 1 TABLET BY MOUTH NIGHTLY AT BEDTIME 90 Tab 4 05/24/2017 05/26/2018 montelukast (SINGULAIR) 10 mg tabletIndications:Moderat e persistent asthma without complication TAKE 1 TABLET BY MOUTH EVERY DAY 90 Tab 4 05/24/2017 05/26/2018 documented in this encounter Miscellaneous Notes * Telephone Encounter - Jean Munoz MD - 05/24/2017 1022 EDT escript done, please notify patient, thanks * Telephone Encounter - Yadira Mccauley RN - 05/24/2017 1005 EDT Medication(s) Requested: singulair 10, requip 2mg, spiriva 1.25, xopenex 45mcg, zoloft 100 [facility] Last Refill Date: 04/13/16, 04/13/16, d/c'd 03/04/17 by pcp d/t pt stopped taking, 04/13/16, 04/13/16 Last Visit Date: 03/04/17 Next Visit Date: 06/01/2017 Is patient out of medication? Unknown Yadira Mccauley RN 05/24/2017 10:05 documented in this encounter Plan of Treatment Upcoming Encounters Date Type Department Care Team (Late st Contact Info) Description 06/29/2024 14:15 EDT Office Visit [facility] [address] [place] [address] Jean Munoz MD [address] [place] [phone] documented as of this encounter Visit Diagnoses Diagnosis Moderate persistent asthma without complication Unspecified asthma Restless legs syndrome Restless legs syndrome (RLS) Chronic obstructive pulmonary disease, unspecified COPD type (HCC-CMS) Major depressive disorder, recurrent, severe without psychotic features (HCC- CMS) Major depressive disorder, recurrent episode, severe, without mention of psychotic behavior Screening for osteoporosis- Primary Special screening for [...] End Da te montelukast (SINGULAIR) 10 mg tabletIndications:Moderat e persistent asthma without complication Take 1 Tab by mouth daily. Reorder 04/13/2016 05/22/2017 rOPINIRole (REQUIP) 2 mg tabletIndications:Restles s legs syndrome Take 1 Tab by mouth at bedtime. TAKE ONE TABLET BY MOUTH AT BEDTIME Reorder 04/13/2016 05/22/2017 levalbuterol (XOPENEX HFA) 45 mcg/actuation inhalerIndications:Modera te persistent asthma without complication INHALE TWO PUFFS BY MOUTH EVERY SIX HOURS NEEDED Reorder 04/13/2016 05/22/2017 sertraline (ZOLOFT) 100 mg tabletIndications:Major depressive disorder, recurrent, severe without psychotic features (HCC-CMS) Take 2 Tabs by mouth daily. Reorder 04/13/2016 05/22/2017 documented as of this encounter Care Teams Caddymaster Relationship Specialty Start Date End Date Jean Munoz MD [address] [place] [phone] PCP - General 12/31/08 Manny Rizzo MD [address] [place] [phone] 04/20/10 documented as of this encounter
--- OUTSIDE RECORDS SUMMARY | 2024-06-10 07:20 | XMS_ITS | Encounter Summary ---
Author Organization [facility] Address [address] [place] [address] Care Team Providers Care Text Transcriber Name Role Phone Jean Munoz MD Primary Care Provider Manny Rizzo MD Unavailable Reason for Visit * Reason Onset Date Comments Medications Refill 07/27/2017 Encounter Details Date Type Department Care Team (Late st Contact Info) Description 07/27/2017 Telephone [facility] - [address] [phone] Tiana Bacon [address] [place] [address] Medications Refill Social History Tobacco [...] afternoon for narcolepsy. Earliest Fill Date: 07/27/17 30 Tab 07/27/2017 08/24/2017 methylphenidate HCl (RITALIN;METHYLIN) 20 mg tablet Take 2 tabs by mouth in the morning. 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 * Telephone Encounter - Corrina Ac RN - 07/27/2017 0954 EST Methylphenidate prescriptions last filled on 06/29/17 at [facility]. * Telephone Encounter - Barbara Gimenez - 07/27/2017 0901 EST Medication Refill Medication(s) Requested: Ritalin 20mg and Ritalin 10mg Pharmacy (reconcile pharmacy list): [facility] [place] Is patient out of medication? Yes Picking up/mailing (location)/calling in/eprescribe? 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 30 day supply/90 day supply? 30 Barbara Gimenez 07/27/20179:02 documented in this encounter Plan of Treatment Upcoming Encounters Date Type Department Care Team (Late st Contact Info) Description 06/29/2024 14:15 EDT Office Visit [facility] [address] [place] [address] Jean Munoz MD [address] [place] [phone] documented as of this encounter Visit Diagnoses Not on filedocumented in this encounter Discontinued Medications Medication Sig Discontinue Reason Start Date End Da te methylphenidate HCl (RITALIN;METHYLIN) 20 mg tablet Take 2 tabs by mouth in the morning. Reorder 06/29/2017 07/27/2017 methylphenidate HCl (RITALIN;METHYLIN) 10 mg tablet Take one tab in the afternoon for narcolepsy. Earliest Fill Date: 06/29/17 Reorder 06/29/2017 07/27/2017 documented as of this encounter Care Teams Text Transcriber Relationship Specialty Start Date End Date Jean Munoz MD [address] [place] [phone] PCP - General 12/31/08 Manny Rizzo MD [address] [place] [address] 04/20/10 documented as of this encounter
--- OUTSIDE RECORDS SUMMARY | 2024-06-10 07:20 | XMS_ITS | Encounter Summary ---
Author Organization [facility] Address [address] [place] [address] Care Team Providers Care Curtain Framer Name Role Phone Jean Munoz MD Primary Care Provider Manny Rizzo MD Unavailable Reason for Visit * Reason Onset Date Comments Prior Auth, Medication 04/16/2017 Encounter Details Date Type Department Care Team (Late st Contact Info) Description 04/16/2017 Telephone [facility] [address] [place] [address] Kaitlyn Montero LPN [address] [place] [address] Prior Auth, Medication Social History Tobacco Use [...] Telephone Encounter - Kaitlyn Montero LPN - 04/19/2017 0944 EDT Medication: Fexofenadine 180 mg Insurance Co: [place] Approval # (if applicable): [id number] Approval dates: 04/16/2017-04/16/2018 Name of Pharmacy notified: [facility] Spoke with pharmacist and notified her of PA approval. * Telephone Encounter - Kaitlyn Montero LPN - 04/16/2017 1408 EDT PA sent to insurance for Fexofenadine 180 mg. Waiting for response. Kaitlyn Montero LPN documented in this encounter Plan of Treatment Upcoming Encounters Date Type Department Care Team (Late st Contact Info) Description 06/29/2024 14:15 EDT Office Visit [facility] [address] [place], [place] [phone] Jean Munoz MD [address] [place] [phone] documented as of this encounter Visit Diagnoses Not on filedocumented in this encounter Care Teams Curtain Framer Relationship Specialty Start Date End Date Jean Munoz MD [address] [place] [phone] PCP - General 12/31/08 Manny Rizzo MD [address] [place] [phone] 04/20/10 documented as of this encounter
--- OUTSIDE RECORDS SUMMARY | 2024-06-10 07:20 | XMS_ITS | Encounter Summary ---
Author Organization [facility] Address [address] [place] [address] Care Team Providers Care Ramp Lead Name Role Phone Jean Munoz MD Primary Care Provider Manny Rizzo MD Unavailable Reason for Visit * Reason Comments Ankle Pain right Encounter Details Date Type Department Care Team (Late st Contact Info) Description 06/17/2017 13:30 EDT Office Visit [facility] - [address] [address] Liu Tilley MD [address] [place] [phone] Posterior tibial tendonitis, right (Primary Dx) Social History Tobacco Use [...] Progress Notes * Liu Tilley MD - 06/17/2017 1330 EDT PROGRESS NOTE/FOLLOWUP NOTE Chief Complaint Patient presents with ??? Ankle Pain right SUBJECTIVE: Liset Viera came in today in follow up of right posterior tibial tenditis. At her last visit she was scheduled for MRI scan and she came in today for review of that study. When she isin the boot things are okay, but without the boot she can hardly walk. ASO brace had not been helpful for her and she was given the short-leg boot. She has been doing her exercises regularly, but said her ankle has always been weak and that she has sprained the ankle multiple times throughout her life. REVIEW OF SYSTEMS: Negative except for pertinent positives listed above. OBJECTIVE: Patient is in no acute distress. No exam today. IMAGING: MRI scan done yesterday and reviewed by me demonstrated posterior tibial tendon is degenerative. Just proximal to insertion on navicular the posterior tibial tendon has a bit of a split tear. Peroneals look fine. Some inflammation around FHL. Achilles is fine. Avulsion ossicle off anteriorfibula. Mild degenerative change of tibiotalar joint. Subtalar is fine. ASSESSMENT AND PLAN: The patient came in today for follow up of her right ankle pain and review of MRI. She does have degenerative posterior tibial tendon that is causing her pain. In terms of treatment options, it is possible that in the boot the tendon will eventually settle down and heal. At that point we might be able to move her from the boot into a ASO brace. This may take another month or so in the boot. Rightnow I do not think therapy would be helpful as the tendon is so inflamed and the best thing to do is let is settle down. Treating conservatively right now will not burn any bridges in terms of havingsurgical treatment russ the road. The surgical option was also discussed with her, although that will take her off her feet for some time. For now she wants to try to avoid surgery and we will give her another 3 weeks in the boot andthen she can switch to the lace up brace. Follow up in 6 weeks. I, Sean Beth, am scribing for Dr. Liu Tilley, while he is personally performing the service. 06/17/2017 14:22 Cc: Jean Munoz Cc: Alexander documented in this encounter Plan of Treatment Upcoming Encounters Date Type Department Care Team (Late st Contact Info) Description 06/29/2024 14:15 EDT Office Visit [facility]note 3[facility] [address] [place], [place] [phone] Jean Munoz MD [address] [place] [phone] documented as of this encounter Visit Diagnoses Diagnosis Posterior tibial tendonitis, right- Primary Screening for osteoporosis- Primary Special screening for osteoporosis Primary narcolepsy without cataplexy Chronic pain syndrome Chronic low back pain Lumbago Chronic use of opiate for therapeutic purpose Pain medication agreement Encounter for long-term (current) use of other medications Screen for colon cancer Special screening for malignant neoplasms, colon documented in this encounter Care Teams Ramp Lead Relationship Specialty Start Date End Date Jean Munoz MD [address] [place] [phone] PCP - General 12/31/08 Manny Rizzo MD [address] [place] [phone] 04/20/10 documented as of this encounter
--- OUTSIDE RECORDS SUMMARY | 2024-06-10 07:20 | XMS_ITS | Encounter Summary ---
Author Organization [facility] Address [address] [place] [address] Care Team Providers Care Sports Leadership Instructor Name Role Phone Jean Munoz MD Primary Care Provider Manny Rizzo MD Unavailable Reason for Visit * Reason Onset Date Comments Medication Management 05/18/2017 Encounter Details Date Type Department Care Team (Late st Contact Info) Description 05/18/[address] [address] Kaitlyn Montero LPN [address] [place] [address] Medication Management Social History Tobacco Use Types [...] Telephone Encounter - Kaitlyn Montero LPN - 05/18/2017 1322 EDT Error documented in this encounter Plan of Treatment Upcoming Encounters Date Type Department Care Team (Late st Contact Info) Description 06/29/2024 14:15 EDT Office Visit [facility] [address] [place], [place] [phone] Jean Munoz MD [address] [place] [phone] documented as of this encounter Visit Diagnoses Not on filedocumented in this encounter Care Teams Sports Leadership Instructor Relationship Specialty Start Date End Date Jean Munoz MD [address] [place] [phone] PCP - General 12/31/08 Manny Rizzo MD [facility] [place] [phone] 04/20/10 documented as of this encounter
--- OUTSIDE RECORDS SUMMARY | 2024-06-10 07:20 | XMS_ITS | Encounter Summary ---
Author Organization [facility] Address [address] [place] [address] Care Team Providers Care Wire Rigger Name Role Phone Jean Munoz MD Primary Care Provider Manny Rizzo MD Unavailable Reason for Visit * Reason Onset Date Comments Medications Refill 05/14/2017 Encounter Details Date Type Department Care Team (Late st Contact Info) Description 05/14/2017 Refill [facility] [address] [place], [place] [phone] Jean Munoz MD [address] [place] [phone] Medications Refill Social History Tobacco [...] Start Date End Da te amLODIPine (NORVASC) 2.5 mg tabletIndications:Migraine without status migrainosus, not intractable, unspecified migraine type Take 1 Tab by mouth daily. 90 Tab 05/14/2017 06/01/2017 documented in this encounter Miscellaneous Notes * Telephone Encounter - Dot Patel - 05/14/2017 9562 EDT Pharmacy is calling asking for a new script for the patient for a 90 day refill of her Amlodipine. Patient is out of medication and her insurance is require her refills be in 90 day increments. Last refill: 03/04/17 Last visit 03/04/17 documented in this encounter Plan of Treatment Upcoming Encounters Date Type Department Care Team (Late st Contact Info) Description 06/29/2024 14:15 EDT Office Visit [facility] [address] [place] [address] Jean Munoz MD [address] [place] [phone] documented as of this encounter [...] Start Date End Da te amLODIPine (NORVASC) 2.5 mg tabletIndications:Migrain e without status migrainosus, not intractable, unspecified migraine type Take 1 Tab by mouth daily. Reorder 03/04/2017 05/14/2017 documented as of this encounter Care Teams Wire Rigger Relationship Specialty Start Date End Date Jean Munoz MD [address] [place] [phone] PCP - General 12/31/08 Manny Rizzo MD [address] [place] [phone] 04/20/10 documented as of this encounter
--- OUTSIDE RECORDS SUMMARY | 2024-06-10 07:20 | XMS_ITS | Encounter Summary ---
Author Organization [facility] Address [address] [place] [address] Care Team Providers Care Registration Manager Name Role Phone Jean Munoz MD Primary Care Provider Manny Rizzo MD Unavailable Reason for Visit * Reason Onset Date Comments Medications Refill 05/04/2017 Encounter Details Date Type Department Care Team (Late st Contact Info) Description 05/04/2017 Telephone [facility] - [address] [phone] Tiana Bacon [address] [place] [address] Medications Refill Social History Tobacco [...] the afternoon for narcolepsy. Earliest Fill Date: 05/06/17 30 Tab 05/06/2017 06/01/2017 methylphenidate HCl (RITALIN;METHYLIN) 20 mg tablet Take 2 tabs by mouth in the morning. Earliest Fill Date: 05/06/17 60 Tab 05/06/2017 06/01/2017 documented in this encounter Miscellaneous Notes * Telephone Encounter - Corrina Ac RN - 05/04/2017 0943 EDT Spoke with patient and let her know her (ritlalin) prescriptions ready for strip picker at the Sleep Program. * Telephone Encounter - Corrina Ac RN - 05/04/2017 0826 EDT Spoke w/pt. She is still taking her ritalin. She stated the night of her sleep study, the x ray technician asked her what medications she takes at night. * Telephone Encounter - Barbara Gimenez - 05/04/2017 0810 EDT Medication Refill Medication(s) Requested: Ritalin 20mg and Ritalin 10mg Pharmacy (reconcile pharmacy list): [facility] Last Visit Date: 5.17.17 Next Visit Date: 06/22/2017 Is patient out of medication? No Picking up/mailing (location)/calling in/eprescribe? PT to strip picker at [facility] 30 day supply/90 day supply? 30 Barbara Gimenez 05/04/20178:10 documented in this encounter Plan of Treatment Upcoming Encounters Date Type Department Care Team (Late st Contact Info) Description 06/29/2024 14:15 EDT Office Visit [facility] [address] [place], [place] [phone] Jean Munoz MD [address] [place] [phone] documented as of this encounter Visit Diagnoses Not on filedocumented in this encounter Discontinued Medications Medication Sig Discontinue Reason Start Date End Da te methylphenidate (RITALIN;METHYLIN) 20 mg tablet Take 2 tabs by mouth in the morning. Reorder 04/08/2017 05/04/2017 methylphenidate (RITALIN;METHYLIN) 10 mg tablet Take one tab in the afternoon for narcolepsy. Reorder 04/08/2017 05/04/2017 documented as of this encounter Care Teams Registration Manager Relationship Specialty Start Date End Date Jean Munoz MD [address] [place] [phone] PCP - General 12/31/08 Manny Rizzo MD [address] [place] [address] 04/20/10 documented as of this encounter
--- OUTSIDE RECORDS SUMMARY | 2024-06-10 07:20 | XMS_ITS | Encounter Summary ---
Author Organization [facility] Address [address] [place] [address] Care Team Providers Care Spiral Weaver Name Role Phone Jean Munoz MD Primary Care Provider Manny Rizzo MD Unavailable Reason for Visit * Reason Onset Date Comments Orders (Non Pre-visit) 04/20/2017 Encounter Details Date Type Department Care Team (Late st Contact Info) Description 04/20/2017 Orders Only [facility] - [address] [place], [place] [phone] Astrid Roberts LPN [address] [place] [address] Acute right ankle pain (Primary Dx) Social History Tobacco Use [...] as of this encounter Progress Notes * Astrid Roberts, BIJU - 04/20/2017 1616 EDT Pt calls to report she is having increase pain using the lace up ankle brace stating her ankle feels much worse. Discussed with Dr. Tilley whom suggest pt try a tall boot to improve support. Pt states she has a tall boot and will use it. Astrid Roberts LPN 04/20/2017 16:34 documented in this encounter Plan of Treatment Upcoming Encounters Date Type Department Care Team (Late st Contact Info) Description 06/29/2024 14:15 EDT Office Visit [facility] [address] [place] [address] Jean Munoz MD [address] [place] [phone] documented as of this encounter Visit Diagnoses Diagnosis Acute right ankle pain- Primary Screening for osteoporosis- Primary Special screening for osteoporosis Primary narcolepsy without cataplexy Chronic pain syndrome Chronic low back pain Lumbago Chronic use of opiate for therapeutic purpose Pain medication agreement Encounter for long-term (current) use of other medications Screen for colon cancer Special screening for malignant neoplasms, colon documented in this encounter Care Teams Spiral Weaver Relationship Specialty Start Date End Date Jean Munoz MD [address] [place] [phone] PCP - General 12/31/08 Manny Rizzo MD [address] [place] [phone] 04/20/10 documented as of this encounter
--- OUTSIDE RECORDS SUMMARY | 2024-06-10 07:20 | XMS_ITS | Encounter Summary ---
Author Organization [facility] Address [address] [place] [address] Care Team Providers Care Bonsai Tender Name Role Phone Jean Munoz MD Primary Care Provider Manny Rizzo MD Unavailable Reason for Visit * Reason Comments Ankle Pain right Encounter Details Date Type Department Care Team (Late st Contact Info) Description 05/20/2017 11:15 EDT Office Visit [facility] - [address] [address] Liu Tilley MD [address] [place] [phone] Right ankle pain, unspecified chronicity (Primary Dx) Social History Tobacco Use Types [...] Progress Notes * Liu Tilley MD - 05/20/2017 1115 EDT PROGRESS NOTE/FOLLOWUP NOTE Chief Complaint Patient presents with ??? Ankle Pain right SUBJECTIVE: Liset Viera came in today in follow up of her right posterior tibial tenditis. She said today that the boot has not been helpful and her ankle is still very painful. She has tried a lace up brace, which made things worse. She wondered if she has had her problem for years as she has sprained the ankle many times over the years and the ankle is weak. She is having pain both mediallyand laterally. REVIEW OF SYSTEMS: Negative except for pertinent positives listed above. OBJECTIVE: Patient is in no acute distress. Right Ankle: Skin: Intact, no skin changes. Pulses: Nicely palpable. Sensation: Intact. Strength: Reasonable posterior tibial tendon strength. Peroneals are on the weak side. Otherwise intact. Musculoskeletal: Tender over peroneals under fibula and some in sinus tarsi. No instability. ASSESSMENT AND PLAN: The patient came in today with ongoing right ankle pain. The boot and lace up brace did not work tosettle things down for her and as she is so sore I do not think she would benefit from PT. At this point I think she should have MRI scan done to evaluate her posterior tibial tendon further so that we will have a clearer idea picture of our treatment options. She was agreeable and we will get her set up for MRI. She was provided with a short-leg walking boot that will hopefully be more comfortable for her. Follow up after MRI scan. I, Sean Beth, am scribing for Dr. Liu Tilley, while he is personally performing the service. 05/20/2017 11:38 Cc: Jean Munoz Cc: Alexander documented in this encounter Plan of Treatment Upcoming Encounters Date Type Department Care Team (Late st Contact Info) Description 06/29/2024 14:15 EDT Office Visit [facility] [address] [place] [address] Jean Munoz MD [address] [place] [address] documented as of this encounter Procedures Procedure Name Priority Date/Time Associated Diagnosis Comments MR EXTREMITY ANKLE WO CONTRAST Routine 06/16/2017 15:58 EDT documented in this encounter Results * MR EXTREMITY ANKLE WO CONTRAST (06/16/2017 15:58 EDT) Anatomical Region Laterality Modality Other 06/16/2017 15:5 8 EDT 06/16/2017 17:56 EDT Narrative 06/16/2017 17:56 EDT MR EXTREMITY RIGHT ANKLE WO CONTRAST ??06/16/2017 3:58 PM SIGNS AND SYMPTOMS/COMMENTS: ??M25.571-Pain in right ankle and joints of right foot-ICD-10; right ankle pain COMPARISON: Radiographs 04/06/2017. TECHNIQUE: Routine multiplanar sagittal, coronal, axial conventional MR images with long and short TR sequences of the right ankle were obtained without contrast administration. FINDINGS: Assessment of the flexor tendons on the medial aspect of the ankle shows tendinosis and tenosynovitis with small low-grade partial interstitial tear of the posterior tibialis tendon before its navicular insertion (axial #17-18). The flexor hallucis longus and flexor digitorum longus tendons appear grossly intact. Assessment of the peroneus longus and brevis tendons show a focal area of tenosynovitis just distal to the level of the peroneal tubercle along the lateral surface of the calcaneus. The tendons themselves otherwise appear grossly intact without evidence of a discrete tear. (Axial T2 images #11-13). Assessment of the extensor tendons on the anterior aspect of the ankle show no discrete abnormalities; the anterior tibialis tendon, extensor hallucis longus tendon, and extensor digitorum longus tendon appear all intact without evidence of tendinosis, tenosynovitis, or tear. The Achilles tendon in the posterior aspect of the ankle appears intact; however, there is mild insertional Achilles tendinosis. The adjacent plantaris tendon appears likewise intact. No discrete abnormality seen in the pre-Achilles Kager's fat pad. No evidence of retrocalcaneal nor retro-Achilles bursitis. No discrete abnormality seen in the sinus tarsi and tarsal canal. No discrete abnormality seen in the tarsal tunnel. The plantar fascia appears intact. There is sequela from prior partial tears of the syndesmotic, lateral, and medial ligament complexes. However, no acute ligamentous tear is identified. There are cortical irregularities in the distal tip of the medial and lateral malleoli, likewise sequelae from remote injuries. There are at least moderate grade degenerative changes in the tibiotalar joint, also likely in the setting of posttraumatic osteoarthrosis. Moreover, there are residual lucent tracts in the distal tibia and distal fibula from previously removed hardware as noted when compared to prior radiographs. No new fractures identified. There is a trace amount of fluid in the anterior and posterior recesses of the tibiotalar and subtalar joints, however, no sizable effusion is present. Mild degenerative changes seen in the mid and hindfoot. IMPRESSION: 1. Tendinosis, tenosynovitis, and small low-grade partial interstitial tear of the posterior tibialis tendon before its navicular insertion. 2. Focal area tenosynovitis in the peroneus longus and brevis tendons distal to the level of the peroneal tubercle along the lateral surface of the calcaneus. No discrete tear identified. 3. Sequelae from prior multiligamentous injuries likely sequelae of partial tears involving the different components of the syndesmotic, lateral, and medial ligament complexes; associated cortical irregularities in the distal tip of the medial and lateral malleoli noted as well. 4. Residual lucent tracts in the distal tibia and fibula from previously removed hardware. No new fracture seen. 5. 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 6. See above description for additional findings and details. ?? I have personally reviewed the images and the above interpretation and agree with the findings. Procedure Note Lion Lopez MD - 06/16/2017 MR EXTREMITY RIGHT ANKLE WO CONTRAST 06/16/2017 3:58 PM SIGNS AND SYMPTOMS/COMMENTS: M25.571-Pain in right ankle and joints of right foot-ICD-10; right ankle pain COMPARISON: Radiographs 04/06/2017. TECHNIQUE: Routine multiplanar sagittal, coronal, axial conventional MR images with long and short TR sequences of the right ankle were obtained without contrast administration. FINDINGS: Assessment of the flexor tendons on the medial aspect of the ankle shows tendinosis and tenosynovitis with small low-grade partial interstitial tear of the posterior tibialis tendon before its navicular insertion (axial #17-18). The flexor hallucis longus and flexor digitorum longus tendons appear grossly intact. Assessment of the peroneus longus and brevis tendons show a focal area of tenosynovitis just distal to the level of the peroneal tubercle along the lateral surface of the calcaneus. The tendons themselves otherwise appear grossly intact without evidence of a discrete tear. (Axial T2 images #11-13). Assessment of the extensor tendons on the anterior aspect of the ankle show no discrete abnormalities; the anterior tibialis tendon, extensor hallucis longus tendon, and extensor digitorum longus tendon appear all intact without evidence of tendinosis, tenosynovitis, or tear. The Achilles tendon in the posterior aspect of the ankle appears intact; however, there is mild insertional Achilles tendinosis. The adjacent plantaris tendon appears likewise intact. No discrete abnormality seen in the pre-Achilles Kager's fat pad. No evidence of retrocalcaneal nor retro-Achilles bursitis. No discrete abnormality seen in the sinus tarsi and tarsal canal. No discrete abnormality seen in the tarsal tunnel. The plantar fascia appears intact. There is sequela from prior partial tears of the syndesmotic, lateral, and medial ligament complexes. However, no acute ligamentous tear is identified. There are cortical irregularities in the distal tip of the medial and lateral malleoli, likewise sequelae from remote injuries. There are at least moderate grade degenerative changes in the tibiotalar joint, also likely in the setting of posttraumatic osteoarthrosis. Moreover, there are residual lucent tracts in the distal tibia and distal fibula from previously removed hardware as noted when compared to prior radiographs. No new fractures identified. There is a trace amount of fluid in the anterior and posterior recesses of the tibiotalar and subtalar joints, however, no sizable effusion is present. Mild degenerative changes seen in the mid and hindfoot. IMPRESSION: 1. Tendinosis, tenosynovitis, and small low-grade partial interstitial tear of the posterior tibialis tendon before its navicular insertion. 2. Focal area tenosynovitis in the peroneus longus and brevis tendons distal to the level of the peroneal tubercle along the lateral surface of the calcaneus. No discrete tear identified. 3. Sequelae from prior multiligamentous injuries likely sequelae of partial tears involving the different components of the syndesmotic, lateral, and medial ligament complexes; associated cortical irregularities in the distal tip of the medial and lateral malleoli noted as well. 4. Residual lucent tracts in the distal tibia and fibula from previously removed hardware. No new fracture seen. 5. 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 6. See above description for additional findings and details. I have personally reviewed the images and the above interpretation and agree with the findings. Liu Tilley MD IMG MRI ORDERABLE S documented in this encounter Visit Diagnoses Diagnosis Right ankle pain, unspecified chronicity- Primary Screening for osteoporosis- Primary Special screening [...] Orde red Date PNEUMATIC WALKING BOOT - SHORT (L4360) 1 documented in this encounter Care Teams Bonsai Tender Relationship Specialty Start Date End Date Jean Munoz MD [address] [place] [address] PCP - General 12/31/08 Manny Rizzo MD [address] [place] [id number] 04/20/10 documented as of this encounter
--- OUTSIDE RECORDS SUMMARY | 2024-06-10 07:20 | XMS_ITS | Encounter Summary ---
Author Organization [facility] Address [address] [place] [address] Care Team Providers Care Psychic Reader Name Role Phone Jean Munoz MD Primary Care Provider Manny Rizzo MD Unavailable Reason for Visit * Reason Onset Date Comments Other 06/29/2017 Encounter Details Date Type Department Care Team (Late st Contact Info) Description 06/29/2017 Telephone [facility] - [address] [id number] Tiana Bacon [address] [place] [phone] Other Social History Tobacco Use Types [...] afternoon for narcolepsy. Earliest Fill Date: 06/29/17 30 Tab 06/29/2017 07/27/2017 methylphenidate HCl (RITALIN;METHYLIN) 20 mg tablet Take 2 tabs by mouth in the morning. 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 * Telephone Encounter - Barbara Gimenez - 06/29/2017 0837 EDT Medication Refill Medication(s) Requested: Ritalin 20mg and Ritalin 10mg Pharmacy (reconcile pharmacy list): [facility] Is patient out of medication? No Picking up/mailing (location)/calling in/eprescribe? PT will pick up driver at order desk caller 30 day supply/90 day supply? 30 PT stated that this is not to ready to be filled until 07/01, but she needs to go to [place] later this evening as her daughter is extremely ill and is not sure how long she will be there. Please call PT when ready. Barbara Gimenez 06/29/20178:37 documented in this encounter Plan of Treatment Upcoming Encounters Date Type Department Care Team (Late st Contact Info) Description 06/29/2024 14:15 EDT Office Visit [facility] [address] [place] [address] Jean Munoz MD [address] [place] [address] documented as of this encounter Visit Diagnoses Not on filedocumented in this encounter Discontinued Medications Medication Sig Discontinue Reason Start Date End Da te methylphenidate HCl (RITALIN;METHYLIN) 20 mg tablet Take 2 tabs by mouth in the morning. Earliest Fill Date: 06/03/17 Reorder 06/03/2017 06/29/2017 methylphenidate HCl (RITALIN;METHYLIN) 10 mg tablet Take one tab in the afternoon for narcolepsy. Earliest Fill Date: 06/03/17 Reorder 06/03/2017 06/29/2017 documented as of this encounter Care Teams Psychic Reader Relationship Specialty Start Date End Date Jean Munoz MD [address] [place] [address] PCP - General 12/31/08 Manny Rizzo MD [address] [place] [address] 04/20/10 documented as of this encounter
--- OUTSIDE RECORDS SUMMARY | 2024-06-10 07:20 | XMS_ITS | Encounter Summary ---
Author Organization [facility] Address [address] [place] [address] Care Team Providers Care Transplanter Name Role Phone Jean Munoz MD Primary Care Provider Manny Rizzo MD Unavailable Reason for Visit * Reason Onset Date Comments Prior Auth, Medication 06/01/2017 Xopenex Encounter Details Date Type Department Care Team (Late st Contact Info) Description 06/01/2017 Telephone [facility][note 3] [address] [place] [address] Kaitlyn Montero LPN [address] [place] [address] Prior Auth, Medication (Xopenex ) Social History Tobacco Use Types Packs/Day [...] Telephone Encounter - Kaitlyn Montero LPN - 06/02/2017 0945 EDT Medication:Xopenex Insurance Co: [place] Medicaid Approval # (if applicable): [id number] Approval dates: 06/01/2017-06/01/2018 Name of Pharmacy notified: [facility] * Telephone Encounter - Kaitlyn Montero LPN - 06/01/2017 0959 EDT [place] sent to insurance for Xopenex inhaler. Waiting for response. Kaitlyn Montero LPN documented in this encounter Plan of Treatment Upcoming Encounters Date Type Department Care Team (Late st Contact Info) Description 06/29/2024 14:15 EDT Office Visit [facility] [address] [place], [place] [id number] Jean Munoz MD [address] [place] [address] documented as of this encounter Visit Diagnoses Not on filedocumented in this encounter Care Teams Transplanter Relationship Specialty Start Date End Date Jean Munoz MD [address] [place] [address] PCP - General 12/31/08 Manny Rizzo MD [address] [place] [address] 04/20/10 documented as of this encounter
--- OUTSIDE RECORDS SUMMARY | 2024-06-10 07:20 | XMS_ITS | Encounter Summary ---
Author Organization [facility] Address [address] [place] [address] Care Team Providers Care Php Software Engineer Name Role Phone Jean Munoz MD Primary Care Provider Manny Rizzo MD Unavailable Reason for Referral * Radiology Services (Routine) - Closed Specialty Diagnoses / Procedures Referred By Contac t Referred To Contact Diagnoses Acute foot pain, right Procedures FOOT 3 OR MORE VIEWS Liu Tilley MD [address] [place] [phone] Referral ID Status Reason Start Date Expiration Date Visits Re quested Visits Authorized [id number] Closed 04/06/2017 1 1 * Radiology Services (Routine) - Closed Specialty Diagnoses / Procedures Referred By Contac t Referred To Contact Diagnoses Acute right ankle pain Procedures ANKLE 3 OR MORE VIEWS Liu Tilley MD [address] [place] [phone] Referral ID Status Reason Start Date Expiration Date Visits Re quested Visits Authorized [id number] Closed 04/06/2017 1 1 Reason for Visit * Reason Comments Ankle Pain right * Follow Up (Routine/Next Available) - Specialty Report Received Specialty Diagnoses / Procedures Referred By Contcecille t Referred To Contact Orthopedic Surgery Diagnoses Right ankle pain, unspecified chronicity Jean Munoz MD [address] [place] [address] Liu Tilley MD [address] [place] [phone] Referral ID Status Reason Start Date Expiration Date Visits Requested Visits Authorized [id number] Specialty Report Received Specialty Services Required 03/04/2017 1 1 Encounter Details Date Type Department Care Team (Late st Contact Info) Description 04/06/2017 13:45 EDT Office Visit [facility] - [address] [address] Liu Tilley MD [address] [place] [phone] Acute right ankle pain (Primary Dx); Acute foot pain, right Discharge Disposition: Auto Discharge Social History Tobacco [...] as of this encounter Discharge Diagnoses Diagnosis M25.471 Effusion, right ankle-M25.471[ICD-10-CM] Z98.890 Other specified postprocedural states-Z98.890[ICD-10-CM] M25.571 Pain in right ankle-M25.571[ICD-10-CM] documented in this encounter Discharge Disposition Disposition Code Departure Means Destination Auto Discharge documented in this encounter Progress Notes * Liu Tilley MD - 04/06/2017 1345 EDT NEW ANKLE PAIN Chief Complaint Patient presents with ??? Ankle Pain right SUBJECTIVE: Liset Viera came in as a new patient regarding right ankle pain. She has been here in the past and had some hardware removed in 2011 s/p ankle fracture. Today she said she is feeling great except for her right ankle. When she stands the arch collapses and she has a lot of pain walking. She just noted the arch collapse over the last couple of months. She feels cracking and snappingand at times feels like the ankle will give out. She is using a cane to ambulate. Past Medical History: Diagnosis Date ??? Abdominal [...] Knee pain 10/03/04 ??? Laceration 12/26/09 ??? Malaise and fatigue 12/11/03 ??? Nausea [...] ??? ANKLE FRACTURE SURGERY 04/01/10 [facility] ??? CERVICAL SPINE SURGERY 12/31/08 discectomy, fusion C4-7 Dr Dewitt ??? COLONOSCOPY 07/29/09 repeat 10 years ??? CYST INCISION AND DRAINAGE 09/17/10 left cheek ??? CYSTOSCOPY 02/14/13 ??? FINE NEEDLE ASPIRATION 09/19/10 left cheek ??? GASTRIC BYPASS SURGERY ??? GASTRIC FUNDOPLICATION 03/02/07 [place] ??? HYSTERECTOMY, VAGINAL menorrhagia ??? SALPINGECTOMY 1982 ectopic ??? SHOULDER ARTHROSCOPY 10/15 left, with acromioplasty Current Outpatient Prescriptions Medication Sig Dispense Refill ??? amLODIPine (NORVASC) 2.5 mg tablet Take 1 Tab by mouth daily. 30 Tab 5 ??? baclofen (LIORESAL) 10 mg tablet Take 1 Tab by mouth 3 times daily as needed (mucles tightness). 180 Tab 3 ??? blood glucose (BLOOD GLUCOSE TEST) test strips 1 Strip by misc (non-drug; combo route) route 2 times daily. 100 Each 1 ??? Ciclesonide 50 mcg spray,non-aerosol 100 mcg by nasal route daily. 37.5 g 1 ??? cycloSPORINE (RESTASIS) 0.05 % ophthalmic emulsion Place 1 Drop into both eyes 2 times daily ??? docusate sodium (COLACE) 100 mg capsule Take 1 Cap by mouth 2 times daily as needed for Constipation. ??? doxycycline (VIBRAMYCIN) 100 mg capsule TAKE ONE CAPSULE BY MOUTH ONE TIME DAILY 90 Cap 3 ??? fexofenadine (JUDITH) 180 mg tablet Take 1 Tab by mouth daily. 90 Tab 3 ??? fluticasone-salmeterol (ADVAIR HFA) 115-21 mcg/actuation inhaler Inhale 1 Puff as directed 2 times daily. 1 Inhaler 11 ??? guaiFENesin (MUCINEX) 600 mg SR tablet Take 1 Tab by mouth 2 times daily. 30 Tab 0 ??? [START ON 05/06/2017] HYDROcodone-acetaminophen (NORCO) 5-325 mg tablet Take 1-2 Tabs by mouth every 6 hours as needed for up to 28 days for Pain. Earliest Fill Date: 05/06/17 Daily Max: 8 Tabs 112Tab 0 ??? [START ON 04/08/2017] HYDROcodone-acetaminophen (NORCO) 5-325 mg tablet Take 1-2 Tabs by mouth every 6 hours as needed for up to 28 days for Pain. Earliest Fill Date: 04/08/17 Daily Max: 8 Tabs 112Tab 0 ??? HYDROcodone-acetaminophen (NORCO) 5-325 mg tablet Take 1-2 Tabs by mouth every 6 hours as needed for up to 28 days for Pain. Earliest Fill Date: 03/11/17 Daily Max: 8 Tabs 112 Tab 0 [...] PUFFS BY MOUTH EVERY SIX HOURS NEEDED 3 Inhaler 3 ??? LYRICA 300 mg capsule TAKE ONE CAPSULE BY MOUTH TWICE DAILY. daily max: 2 caps (600mg) 60 Cap 4 ??? metFORMIN (GLUCOPHAGE) 500 mg tablet Take 1 Tab by mouth 2 times daily. While on steroid taper 60 Tab 0 ??? methylphenidate (RITALIN;METHYLIN) 20 mg tablet Take 2 tabs by mouth in the morning. 60 Tab 0 ??? methylphenidate (RITALIN;METHYLIN) 10 mg tablet Take one tab in the afternoon for narcolepsy. 30 Tab 0 ??? montelukast (SINGULAIR) 10 mg tablet Take 1 Tab by mouth daily. 90 Tab 3 ??? omeprazole (PRILOSEC) 40 mg capsule Take 1 Cap by mouth daily. 90 Cap 3 ??? ondansetron (ZOFRAN) 4 mg tablet TAKE ONE TABLET BY MOUTH DAILY NEEDED for nausea 30 Tab 3 ??? promethazine (PHENERGAN) 25 mg tablet Take 1 Tab by mouth every 6 hours as needed for Nausea. 20 Tab 1 ??? roflumilast (DALIRESP) 500 mcg tablet Take 1 Tab by mouth daily. 90 Tab 3 ??? rOPINIRole (REQUIP) 2 mg tablet Take 1 Tab by mouth at bedtime. TAKE ONE TABLET BY MOUTH AT BEDTIME 90 Tab 3 ??? sertraline (ZOLOFT) 100 mg tablet Take 2 Tabs by mouth daily. 180 Tab 3 ??? sumatriptan (IMITREX) 50 mg tablet take 1 tablet by mouth as needed for migraine. *daily maximum dose 2 tablets 9 Tab 2 ??? tamsulosin (FLOMAX) 0.4 mg capsule Take 1 Cap by mouth daily. 90 Cap 3 ??? zolpidem (AMBIEN) 5 mg tablet Take 1 Tab by mouth at bedtime as needed for Sleep. Daily Max: 5 mg 28 Tab 5 No current facility-administered medications for this visit. Allergies Allergen Reactions ??? Toradol [Ketorolac Tromethamine] Hives ??? Motrin [Ibuprofen] Itching REVIEW OF SYSTEMS: Documented on the patient intake form. These were reviewed by me. Pertinent positives mentioned above. OBJECTIVE: Patient is in no acute distress. Standing alignment: standing, the right arch collapses. She is unable to single toe rise on either side. Right Ankle/foot: Skin: Intact, no skin changes. Lateral incision is well healed. Pulses: Nicely palpable. Sensation: Intact. Strength: Comes past midline with diminished power in the posterior tibial tendon. Musculoskeletal: Tender over the posterior tibial tendon. Tender over peroneals and under the fibula. Left Ankle/foot: Skin: Intact, no skin changes. Pulses: Nicely palpable. Sensation: Intact. Strength: Intact. Reasonable posterior tibial tendon strength. Musculoskeletal: No tenderness over posterior tibial tendon. Hindfoot moves well. Foot comes up to neutral. Ankle is stable. IMAGING: X-rays: Three views of right ankle, weightbearing, obtained here today and independently reviewed by me show mild degenerative changes. Anterior ankle spurring and off tip of lateral malleolus. Joint surface is fairly well maintained. Foot -- some mild collapse of arch. No sign of degenerative change distally. Forefoot and midfoot otherwise look good. ASSESSMENT AND PLAN: The patient came in today with right ankle pain and collapse. Her diagnosis is posterior tibial tendinitis. This is causing soreness in the peroneals as well and all of this was described for the patient. In terms of treatment for now she should go into a lace up ankle brace to provide the ankle with more support and time to settle down. Once things begin to feel pelon then she would benefit fromsome PT. If, in the longrun, conservative care does not work then we can discuss potential surgery,but for now, as the tendon is still working, she should begin with conservative care. She should use the brace when up and about, but does not need to wear it to bed. Follow up in 6 weeks. Sean Kat, am scribing for Dr. Liu Tilley, while he is personally performing the service. 04/06/2017 14:08 Cc: Jean Munoz Cc: Alexander documented in this encounter Plan of Treatment Upcoming Encounters Date Type Department Care Team (Late st Contact Info) Description 06/29/2024 14:15 EDT Office Visit [facility] [address] [place] [address] Jean Munoz MD [address] [place] [phone] documented as of this encounter Procedures Procedure Name Priority Date/Time Associated Diagnosis Comments FOOT 3 OR MORE VIEWS Routine 04/06/2017 14:26 EDT Acute foot pain, right ANKLE 3 OR MORE VIEWS Routine 04/06/2017 14:26 EDT Acute right ankle pain documented in this encounter Results * FOOT 3 OR MORE VIEWS (04/06/2017 14:26 EDT) Anatomical Region Laterality Modality Other 04/06/2017 14:2 6 EDT 04/06/2017 15:59 EDT Narrative 04/06/2017 15:59 EDT ANKLE 3 OR MORE VIEWS, FOOT 3 OR MORE VIEWS 04/06/2017 2:26 PM Clinical History/Comments: 56 years Female M25.571-Pain in right ankle and joints of right foot-ICD-10; Right ankle pain -evaluate alignment Comparison: 06/21/2012 Technique: 1. ??3 weightbearing views right ankle: AP, mortise, lateral 2. ??3 weightbearing views right foot: AP, oblique, lateral Findings/Impression: Right ankle: Patient is status post hardware removal. Posttraumatic deformities of the medial and lateral malleoli are redemonstrated. 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 Ankle mortise is overall congruent. Right foot: No fractures or subluxations are identified. There are calcaneal enthesophytes at the Achilles and plantar attachments. Procedure Note Itz Menjivar MD - 04/06/2017 ANKLE 3 OR MORE VIEWS, FOOT 3 OR MORE VIEWS 04/06/2017 2:26 PM Clinical History/Comments: 56 years Female M25.571-Pain in right ankle and joints of right foot-ICD-10; Right ankle pain -evaluate alignment Comparison: 06/21/2012 Technique: 1. 3 weightbearing views right ankle: AP, mortise, lateral 2. 3 weightbearing views right foot: AP, oblique, lateral Findings/Impression: Right ankle: Patient is status post hardware removal. Posttraumatic deformities of the medial and lateral malleoli are redemonstrated. 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 Ankle mortise is overall congruent. Right foot: No fractures or subluxations are identified. There are calcaneal enthesophytes at the Achilles and plantar attachments. Liu Tilley MD IMG DIAGNOSTIC IM AGING ORDERABLES * ANKLE 3 OR MORE VIEWS (04/06/2017 14:26 EDT) Anatomical Region Laterality Modality Other 04/06/2017 14:2 6 EDT 04/06/2017 15:59 EDT Narrative 04/06/2017 15:59 EDT ANKLE 3 OR MORE VIEWS, FOOT 3 OR MORE VIEWS 04/06/2017 2:26 PM Clinical History/Comments: 56 years Female M25.571-Pain in right ankle and joints of right foot-ICD-10; Right ankle pain -evaluate alignment Comparison: 06/21/2012 Technique: 1. ??3 weightbearing views right ankle: AP, mortise, lateral 2. ??3 weightbearing views right foot: AP, oblique, lateral Findings/Impression: Right ankle: Patient is status post hardware removal. Posttraumatic deformities of the medial and lateral malleoli are redemonstrated. 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 Ankle mortise is overall congruent. Right foot: No fractures or subluxations are identified. There are calcaneal enthesophytes at the Achilles and plantar attachments. Procedure Note Itz Menjivar MD - 04/06/2017 ANKLE 3 OR MORE VIEWS, FOOT 3 OR MORE VIEWS 04/06/2017 2:26 PM Clinical History/Comments: 56 years Female M25.571-Pain in right ankle and joints of right foot-ICD-10; Right ankle pain -evaluate alignment Comparison: 06/21/2012 Technique: 1. 3 weightbearing views right ankle: AP, mortise, lateral 2. 3 weightbearing views right foot: AP, oblique, lateral Findings/Impression: Right ankle: Patient is status post hardware removal. Posttraumatic deformities of the medial and lateral malleoli are redemonstrated. 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 Ankle mortise is overall congruent. Right foot: No fractures or subluxations are identified. There are calcaneal enthesophytes at the Achilles and plantar attachments. Liu Tilley MD IMG DIAGNOSTIC IM AGING ORDERABLES documented in this encounter Visit Diagnoses Diagnosis Acute right ankle pain- Primary Acute foot pain, right Screening for osteoporosis- Primary Special screening for osteoporosis Primary narcolepsy without cataplexy Chronic pain syndrome Chronic low back pain Lumbago Chronic use of opiate for therapeutic purpose Pain medication agreement Encounter for long-term (current) use of other medications Screen for colon cancer Special screening for malignant neoplasms, colon documented in this encounter Orders Equipment Count Last Ordered Date First Orde red Date LACE-UP ASO (L1902) 1 04/15/2017 documented in this encounter Care Teams Php Software Engineer Relationship Specialty Start Date End Date Jean Munoz MD [address] [place] [phone] PCP - General 12/31/08 Manny Rizzo MD [address] [place] [phone] 04/20/10 documented as of this encounter
--- OUTSIDE RECORDS SUMMARY | 2024-06-10 07:20 | XMS_ITS | Encounter Summary ---
Author Organization [facility] Address [address] [place] [address] Care Team Providers Care Placement Director Name Role Phone Jean Munoz MD Primary Care Provider Manny Rizzo MD Unavailable Encounter Details Date Type Department Care Team (Latest Contact Info) Description 06/16/2017 14:36 EDT - 06/16/2017 23:59 EDT Hospital Encounter [facility] - [address] [address] Lui Tilley MD [address] [place] [phone] Discharge Disposition: Auto Discharge Social History Tobacco [...] Diagnoses Diagnosis M25.571 Pain in right ankle-M25.571[ICD-10-CM] documented in this encounter Medications at Time [...] Max: 8 Tabs 112 Tab 06/03/2017 06/29/2017 HYDROcodone-acetaminoph en (NORCO) 5-325 mg tabletIndications:Chron ic pain syndrome Take 1-2 Tabs by mouth every 6 hours as needed for up to 28 days for Pain. Earliest Fill Date: 05/06/17 Daily Max: 8 Tabs 112 Tab 05/06/2017 06/29/2017 HYDROcodone-acetaminoph en (NORCO) 5-325 mg tabletIndications:Chron ic pain syndrome Take 1-2 Tabs by mouth every 6 hours as needed for up to 28 days for Pain. Earliest Fill Date: 04/08/17 Daily Max: 8 Tabs 112 Tab 04/08/2017 06/29/2017 hydroxypropyl methylcellulose (ISOPTO TEARS) 0.5 % ophthalmic solution Place 1 Drop into both eyes 5 times daily. 12/10/2010 10/06/2023 ipratropium-albuterol (DUONEB) 0.5 mg-3 mg(2.5 mg base)/3 mL nebulizer solutionIndications:Mod erate persistent asthma without complication Take 3 mL by nebulization every 4 hours as needed for Wheezing. 3 mL 3 06/01/2017 08/18/2018 lancetsIndications:Impa irecharmaine glucose tolerance Brand: One Touch Delica 100 Each 2 03/04/2017 11/10/2018 methylphenidate HCl (RITALIN;METHYLIN) 20 mg tablet Take 2 tabs by mouth in the morning. Earliest Fill Date: 06/03/17 60 Tab 06/03/2017 06/29/2017 methylphenidate HCl (RITALIN;METHYLIN) 10 mg tablet Take one tab in the afternoon for narcolepsy. Earliest Fill Date: 06/03/17 30 Tab 06/03/2017 06/29/2017 montelukast (SINGULAIR) 10 mg tabletIndications:Moder ate persistent asthma without complication TAKE 1 TABLET BY MOUTH EVERY DAY 90 Tab 4 05/24/2017 05/26/2018 naloxone (NARCAN) 4 mg/actuation nasal spray 1 [place] by nasal route as needed for Opioid Reversal. 1 Each 06/01/2017 04/17/2018 omeprazole (PRILOSEC) 40 mg capsuleIndications:Benja roesophageal reflux disease, esophagitis presence not specified Take 1 Cap by mouth daily. 90 Cap 3 06/01/2017 05/26/2018 ondansetron (ZOFRAN) 4 mg tabletIndications:Nause a TAKE ONE TABLET BY MOUTH DAILY NEEDED for nausea 30 Tab 3 06/01/2017 04/04/2018 pregabalin (LYRICA) 300 mg capsuleIndications:Top Stop Attacher majo low back pain, unspecified back pain laterality, with sciatica presence unspecified TAKE ONE CAPSULE BY MOUTH TWICE DAILY. daily max: 2 caps (600mg) 60 Cap 5 04/15/2017 10/05/2017 promethazine (PHENERGAN) 25 mg tabletIndications:Nause a and vomiting, intractability of vomiting not specified, unspecified vomiting type Take 1 Tab by mouth every 6 hours as needed for Nausea. 20 Tab 3 06/01/2017 10/11/2017 roflumilast (DALIRESP) 500 mcg tabletIndications:Chron ic obstructive [...] by mouth as needed for migraine *daily maximum dose 2 tablets 9 Tab 1 05/19/2017 08/06/2017 tamsulosin (FLOMAX) 0.4 mg capsuleIndications:Hesi tancy Take 1 Cap by mouth daily. 90 Cap 3 06/01/2017 05/26/2018 traMADol (ULTRAM) 50 mg tablet Take 1 Tab by mouth every 6 hours as needed for Pain. Daily Max: 200 mg 30 Tab 06/01/2017 06/29/2017 XOPENEX HFA 45 mcg/actuation inhalerIndications:Mode rate persistent asthma without complication INHALE TWO PUFFS BY MOUTH EVERY SIX HOURS NEEDED 45 g 5 05/24/2017 05/26/2018 zolpidem (AMBIEN) 5 mg tabletIndications:Insom yesi, unspecified type Take 1 Tab by mouth at bedtime as needed for Sleep. Daily Max: 5 mg 28 Tab 5 03/04/2017 09/01/2017 documented as of this encounter Discharge Disposition Disposition Code Departure Means Destination Auto Discharge Home documented in this encounter Plan of Treatment Upcoming Encounters Date Type Department Care Team (Late st Contact Info) Description 06/29/2024 14:15 EDT Office Visit [facility] [address] [place], [place] [id number] Jean Munoz MD [address] [place] [phone] documented as of this encounter Visit Diagnoses Not on filedocumented in this encounter Care Teams Placement Director Relationship Specialty Start Date End Date Jean Munoz MD [address] [place] [phone] PCP - General 12/31/08 Manny Rizzo MD [address] [place] [phone] 04/20/10 documented as of this encounter
--- OUTSIDE RECORDS SUMMARY | 2024-06-10 07:20 | XMS_ITS | Encounter Summary ---
Author Organization [facility] Address [address] [place] [address] Care Team Providers Care Simulation Analyst Name Role Phone Jean Munoz MD Primary Care Provider Manny Rizzo MD Unavailable Reason for Visit * Reason Onset Date Comments Medication Management 04/07/2017 Pharmacy 04/07/2017 Encounter Details Date Type Department Care Team (Late st Contact Info) Description 04/07/2017 Telephone [facility] [address] [place] [address] Jean Munoz MD [address] [place] [phone] Medication Management; Pharmacy Social History Tobacco Use Types Packs/Day [...] * Telephone Encounter - Kavita Adames - 04/07/2017 1123 EDT Pt calling to follow up,. I let her know it looks like it is being worked on right now. * Telephone Encounter - Lena Bell RN - 04/07/2017 1122 EDT Spoke with Andrei from pharmacy Per Dr. Munoz's script from 04/08, earliest fill date is 04/08. Can dispense medication to patient on 04/08. Notified patient of above. Pt understands. No communication barriers identified. * Telephone Encounter - Rukhsana Molina - 04/07/2017 1057 EDT Pt called wondering why the pharmacist has a note on the hydrocodone 04/08 prescription that patientis not to fill this prescription before 04/15. I called Andrei at [facility] and he stated that there is a note on the 04/08 hydrocodone prescriptionstating per Judith, patient is not to have this prescription filled before 04/15 due to the fact that she had picked up the previous scripts early. Andrei stated that pt picked up 112 tab on February 18 (scripted dated 02/18) and 112 tabs on March 11 (script dated 03/11). documented in this encounter Plan of Treatment Upcoming Encounters Date Type Department Care Team (Late st Contact Info) Description 06/29/2024 14:15 EDT Office Visit [facility] [address] [place] [address] Jean Munoz MD [address] [place] [phone] documented as of this encounter Visit Diagnoses Not on filedocumented in this encounter Care Teams Simulation Analyst Relationship Specialty Start Date End Date Jean Munoz MD [address] [place] [phone] PCP - General 12/31/08 Manny Rizzo MD [address] [place] [phone] 04/20/10 documented as of this encounter
--- OUTSIDE RECORDS SUMMARY | 2024-06-10 07:20 | XMS_ITS | Encounter Summary ---
Author Organization [facility] Address [address] [place] [address] Care Team Providers Care Intake Coordinator Name Role Phone Jean Munoz MD Primary Care Provider Manny Rizzo MD Unavailable Reason for Visit * Reason Comments Other Encounter Details Date Type Department Care Team (Late st Contact Info) Description 04/14/2017 [facility] [address] [place] [address] Jean Munoz MD [address] [place] [phone] Other Social History Tobacco Use Types [...] BY MOUTH EVERY DAY 90 Cap 1 04/14/2017 06/01/2017 DALIRESP 500 mcg tabletIndications:Chronic obstructive pulmonary disease, unspecified COPD type ([facility]) TAKE 1 TABLET BY MOUTH EVERY DAY 90 Tab 1 04/14/2017 06/01/2017 documented in this encounter Miscellaneous Notes * Telephone Encounter - Dot Patel - 04/15/2017 1421 EDT Spoke to patient, she is aware that her prescriptions have been sent to the pharmacy * Telephone Encounter - Jean Munoz MD - 04/14/2017 1532 EDT escript done, please notify patient, thanks * Telephone Encounter - Yadira Mccauley RN - 04/14/2017 0954 EDT Medication(s) Requested: daliresp 500mcg, doxy 100 [facility]acy: [facility] Last Refill Date: 04/13/16 Last Visit Date: 03/04/17 Next Visit Date: 06/01/2017 Is patient out of medication? Unknown Yadira Mccauley RN 04/14/2017 9:54 documented in this encounter Plan of Treatment Upcoming Encounters Date Type Department Care Team (Late st Contact Info) Description 06/29/2024 14:15 EDT Office Visit [facility] [address] [place] [address] Jean Munoz MD [address] [place] [phone] documented as of this encounter Visit Diagnoses Diagnosis Chronic obstructive pulmonary disease, unspecified COPD type (HCC-CMS) Rosacea Screening for osteoporosis- Primary Special screening [...] (HCC-CMS) Take 1 Tab by mouth daily. Reorder 04/13/2016 04/14/2017 doxycycline (VIBRAMYCIN) 100 mg capsuleIndications:Rosac ea TAKE ONE CAPSULE BY MOUTH ONE TIME DAILY Reorder 04/13/2016 04/14/2017 documented as of this encounter Care Teams Intake Coordinator Relationship Specialty Start Date End Date Jean Munoz MD [address] [place] [phone] PCP - General 12/31/08 Manny Rizzo MD [address] [place] [phone] 04/20/10 documented as of this encounter
--- OUTSIDE RECORDS SUMMARY | 2024-06-10 07:20 | XMS_ITS | Encounter Summary ---
Author Organization [facility] Address [address] [place] [address] Care Team Providers Care Technical Lead Name Role Phone Jean Munoz MD Primary Care Provider Manny Rizzo MD Unavailable Reason for Visit * Reason Onset Date Comments Medications Refill 03/17/2017 Encounter Details Date Type Department Care Team (Late st Contact Info) Description 03/17/2017 Refill [facility] [address] [place], [place] [phone] Jean Munoz MD [address] [place] [address] Medications Refill Social History Tobacco [...] Miscellaneous Notes * Telephone Encounter - Yue Rogers - 03/17/2017 1411 EDT Medication(s) Requested: [facility] Last Refill Date: 11/16/16 Last Visit Date: 03/04/17 Next Visit Date: 03/30/2017 Is patient out of medication? unknown Yue Rogers 03/17/2017 14:11 documented in this encounter Plan of Treatment Upcoming Encounters Date Type Department Care Team (Late st Contact Info) Description 06/29/2024 14:15 EDT Office Visit [facility] [address] [place] [address] Jean Munoz MD [address] [place] [phone] documented as of this encounter Visit [...] colon documented in this encounter Care Teams Technical Lead Relationship Specialty Start Date End Date Jean Munoz MD [address] [place] [phone] PCP - General 12/31/08 Manny Rizzo MD [address] [place] [phone] 04/20/10 documented as of this encounter
--- OUTSIDE RECORDS SUMMARY | 2024-06-10 07:20 | XMS_ITS | Encounter Summary ---
Author Organization [facility] Address [address] [place] [address] Care Team Providers Care Jordan Worker Name Role Phone Jean Munoz MD Primary Care Provider Manny Rizzo MD Unavailable Reason for Visit * Reason Onset Date Comments Appointment Related 05/26/2017 Encounter Details Date Type Department Care Team (Late st Contact Info) Description 05/26/2017 Telephone [facility] - [address] [address] Liu Tilley MD [address] [place] [phone] Appointment Related Social History Tobacco Use Types [...] encounter Miscellaneous Notes * Telephone Encounter - Alicia Clifford - 05/26/2017 0946 EDT I called Liset with the date and time of her MRI and follow up with Dr. Tilley. MRI on Wednesday06/16/17 at 3pm, arriving to [facility] at 2:30pm documented in this encounter Plan of Treatment Upcoming Encounters Date Type Department Care Team (Late st Contact Info) Description 06/29/2024 14:15 EDT Office Visit [facility] [address] [place], [place] [phone] Jean Munoz MD [address] [place] [phone] documented as of this encounter Visit Diagnoses Not on filedocumented in this encounter Care Teams Jordan Worker Relationship Specialty Start Date End Date Jean Munoz MD [address] [place] [phone] PCP - General 12/31/08 Manny Rizzo MD [address] [place] [address] 04/20/10 documented as of this encounter
--- OUTSIDE RECORDS SUMMARY | 2024-06-10 07:20 | XMS_ITS | Encounter Summary ---
Author Organization [facility] Address [address] [place] [address] Care Team Providers Care Transport Truck Driver Name Role Phone Jean Munoz MD Primary Care Provider Manny Rizzo MD Unavailable Reason for Visit * Reason Onset Date Comments Prior Auth, Medication 07/14/2017 Dalires Encounter Details Date Type Department Care Team (Late st Contact Info) Description 07/14/2017 Telephone [facility] [address] [place] [address] Kaitlyn Montero LPN [address] [place] [address] [facility] Social History Tobacco Use Types Packs/Day [...] Telephone Encounter - Kaitlyn Montero LPN - 07/14/2017 1537 EDT Medication: Daliresp 500 mcg Insurance Co: [place] Approval # (if applicable): [id number] Approval dates: 07/14/2017- Name of Pharmacy notified: [facility] * Telephone Encounter - Kaitlyn Montero LPN - 07/14/2017 0938 EDT PA sent to insurance for Daliresp. Waiting for response. Kaityln Montero LPN documented in this encounter Plan of Treatment Upcoming Encounters Date Type Department Care Team (Late st Contact Info) Description 06/29/2024 14:15 EDT Office Visit [facility] Medicine [facility] [address] [place] [address] Jean Munoz MD [address] [place] [phone] documented as of this encounter Visit Diagnoses Not on filedocumented in this encounter Care Teams Transport Truck Driver Relationship Specialty Start Date End Date Jean Munoz MD [address] [place] [phone] PCP - General 12/31/08 Manny Rizzo MD [address] [place] [address] 04/20/10 documented as of this encounter
--- OUTSIDE RECORDS SUMMARY | 2024-06-10 07:20 | XMS_ITS | Encounter Summary ---
Author Organization [facility] Address [address] [place] [address] Care Team Providers Care Management Information Systems Director Name Role Phone Jean Munoz MD Primary Care Provider Manny Rizzo MD Unavailable Encounter Details Date Type Department Care Team (Late st Contact Info) Description 04/15/2017 Abstract [facility] [address] [place] [address] Jean Munoz MD [address] [place] [address] Social History Tobacco Use Types [...] EDT Office Visit [facility] [address] [place] [address] Jean Munoz MD [address] [place] [phone] documented as of this encounter Visit Diagnoses Not on filedocumented in this encounter Care Teams Management Information Systems Director Relationship Specialty Start Date End Date Jaen Munoz MD [address] [place] [phone] PCP - General 12/31/08 Manny Rizzo MD [address] [place] [phone] 04/20/10 documented as of this encounter
--- OUTSIDE RECORDS SUMMARY | 2024-06-10 07:20 | XMS_ITS | Encounter Summary ---
Author Organization [facility] Address [address] [place] [address] Care Team Providers Care Motion Picture Equipment Supervisor Name Role Phone Jean Munoz MD Primary Care Provider Manny Rizzo MD Unavailable Encounter Details Date Type Department Care Team (Late st Contact Info) Description 06/15/2017 Community Health Team [facility] Family [address] [address] Odilia Milan, RD [address] [place] [address] Social History Tobacco Use Types [...] as of this encounter Progress Notes * Odilia Milan RD - 06/15/2017 1328 EDT Pt did not arrive for appointment scheduled with CHT RD. Called pt to reschedule but was unable to reach at number provided. [facility][Note 3], [address] [place] [address] Total Time: 5 minutes Referral: none Follow up: Admin team please call pt to reschedule missed appointment. Status: Active Thank you for this referral. Odilia Milan RD, CD Clinical Dietitian, T documented in this encounter Plan of Treatment Upcoming Encounters Date Type Department Care Team (Late st Contact Info) Description 06/29/2024 14:15 EDT Office Visit [facility] 3 [place] [address] Jean Munoz MD [address] [place] [phone] documented as of this encounter Visit Diagnoses Not on filedocumented in this encounter Care Teams Motion Picture Equipment Supervisor Relationship Specialty Start Date End Date Jean Munoz MD [address] [place] [phone] PCP - General 12/31/08 [place] [address] [place] [phone] 04/20/10 documented as of this encounter
--- OUTSIDE RECORDS SUMMARY | 2024-06-10 07:20 | XMS_ITS | Encounter Summary ---
Author Organization [facility] Address [address] [place] [address] Care Team Providers Care Affirmative Action Specialist Name Role Phone Jean Munoz MD Primary Care Provider Manny Rizzo MD Unavailable Reason for Visit * Reason Onset Date Comments Medications Refill 06/01/2017 Encounter Details Date Type Department Care Team (Late st Contact Info) Description 06/01/2017 Telephone [facility] Sleep [facility] - [address] [phone] Tiana Bacon [address] [place] [address] Medications Refill Social History Tobacco [...] Fill Date: 06/03/17 30 Tab 06/03/2017 06/29/2017 methylphenidate HCl (RITALIN;METHYLIN) 20 mg tablet Take 2 tabs by mouth in the morning. Earliest Fill Date: 06/03/17 60 Tab 06/03/2017 06/29/2017 documented in this encounter Miscellaneous Notes * Telephone Encounter - Corrina Ac RN - 06/01/2017 1229 EDT Left message for pt to let know ( ritalin ) prescription(s) ready for grain picker at the Sleep Program. * Telephone Encounter - Barbara Gimenez - 06/01/2017 0813 EDT Medication Refill Medication(s) Requested: Ritalin 10mg & Ritalin 20mg Pharmacy (reconcile pharmacy list): [facility] Last Visit Date: 01/27/17 Next Visit Date: 06/22/2017 Is patient out of medication? No Picking up/mailing (location)/calling in/eprescribe? PT to grain picker at it desktop support specialist 30 day supply/90 day supply? 30 Barbara Gimenez 06/01/20178:13 documented in this encounter Plan of Treatment Upcoming Encounters Date Type Department Care Team (Late st Contact Info) Description 06/29/2024 14:15 EDT Office Visit [facility] [address] [place], [place] [phone] Jean Munoz MD [address] [place] [phone] documented as of this encounter Visit Diagnoses Not on filedocumented in this encounter Discontinued Medications Medication Sig Discontinue Reason Start Date End Da te methylphenidate HCl (RITALIN;METHYLIN) 20 mg tablet Take 2 tabs by mouth in the morning. Earliest Fill Date: 05/06/17 Reorder 05/06/2017 06/01/2017 methylphenidate HCl (RITALIN;METHYLIN) 10 mg tablet Take one tab in the afternoon for narcolepsy. Earliest Fill Date: 05/06/17 Reorder 05/06/2017 06/01/2017 documented as of this encounter Care Teams Affirmative Action Specialist Relationship Specialty Start Date End Date Jean Munoz MD [address] [place] [phone] PCP - General 12/31/08 Manny Rizzo MD [address] [place] [address] 04/20/10 documented as of this encounter
--- OUTSIDE RECORDS SUMMARY | 2024-06-10 07:20 | XMS_ITS | Encounter Summary ---
Author Organization [facility] Address [address] [place] [address] Care Team Providers Care Box Machine Operator Name Role Phone Jean Munoz MD Primary Care Provider Manny Rizzo MD Unavailable Reason for Visit * Reason Onset Date Comments Medication Questions 06/02/2017 Encounter Details Date Type Department Care Team (Late st Contact Info) Description 06/02/2017 Refill [facility] 3 [place] [address] Jean Munoz MD [address] [place] [phone] Medication Questions Social History Tobacco [...] 50 mcg spray,non-aerosolIndicati ons:Seasonal allergic rhinitis, unspecified allergic rhinitis trigger 1 spray each nostril daily 37.5 g 1 06/02/2017 03/03/2018 documented in this encounter Miscellaneous Notes * Telephone Encounter - Jean Munoz MD - 06/02/2017 1453 EDT Order done * Telephone Encounter - Rukhsana Molina - 06/02/2017 1314 EDT Reason for Call: No chief complaint on file. Summary/Symptoms: Pharmacy calling asking if the directions for the ?? Ciclesonide 50 mcg spray,non-aerosol Is one spray in each nostril or two sprays in each nostril. Please call pharmacy Onset and Duration? na Appointment Offered? No Rukhsana Molina 06/02/2017 13:14 documented in this encounter Plan of Treatment Upcoming Encounters Date Type Department Care Team (Late st Contact Info) Description 06/29/2024 14:15 EDT Office Visit [facility] 3 [place] [address] Jean Munoz MD [address] [place] [address] documented as of this encounter Visit Diagnoses Diagnosis Seasonal allergic rhinitis, unspecified allergic rhinitis trigger- Primary Screening for osteoporosis- Primary Special [...] 50 mcg spray,non-aerosolIndicati ons:Seasonal allergic rhinitis, unspecified allergic rhinitis trigger 100 mcg by nasal route daily. Reorder 06/01/2017 06/02/2017 documented as of this encounter Care Teams Box Machine Operator Relationship Specialty Start Date End Date Jean Munoz MD [address] [place] [phone] PCP - General 12/31/08 Manny Rizzo MD [address] [place] [phone] 04/20/10 documented as of this encounter
--- OUTSIDE RECORDS SUMMARY | 2024-06-10 07:20 | XMS_ITS | Encounter Summary ---
Author Organization [facility] Address [address] [place] [address] Care Team Providers Care Talkback Host Name Role Phone Jean Munoz MD Primary Care Provider Manny Rizzo MD Unavailable Afia Valle MD Unavailable Jesi Leong WAGON WINDER Unavailable SaloJesi shanks WAGON WINDER Unavailable Reason for Visit * Reason Comments Other Encounter Details Date Type Department Care Team (Late st Contact Info) Description 05/19/2017 Refill [facility] Family Medicine [facility] [address] [place], [place] [phone] Jean Munoz MD [address] [place] [phone] Other Social History Tobacco Use [...] 2 tablets 9 Tab 1 05/19/2017 08/06/2017 documented in this encounter Miscellaneous Notes * Telephone Encounter - Jean Munoz MD - 05/19/2017 1314 EDT escript done, please notify patient, thanks * Telephone Encounter - Yadira Mccauley RN - 05/19/2017 1122 EDT Medication(s) Requested: imitrex 50 Pharmacy: [facility] Last Refill Date: 03/09/17 Last Visit Date: 03/04/17 Next Visit Date: 06/01/2017 Is patient out of medication? Unknown Yadira Mccauley RN 05/19/2017 11:22 documented in this encounter Plan of Treatment Upcoming Encounters Date Type Department Care Team (Late st Contact Info) Description 06/29/2024 14:15 EDT Office Visit [facility] [address] [place] [address] Jean Munoz MD [address] [place] [phone] documented as of this encounter [...] for migraine. *daily maximum dose 2 tablets Reorder 03/09/2017 05/19/2017 documented as of this encounter Additional Health Concerns Infection Onset Date Last Indicated Resolved Time R/O COVID-19 05/15/2022 05/15/2022 05/20/2022 22:1 6 EDT R/O COVID-19 11/14/2022 11/14/2022 11/14/2022 19:1 6 EST documented as of this encounter Care Teams Talkback Host Relationship Specialty Start Date End Date Jean Munoz MD [address] [place] [phone] PCP - General 12/31/08 Manny Rizzo MD [address] [place] [phone] 04/20/10 Afia Valle MD [address] [facility] [address] [place] [phone] MD Care Team Radiation Oncology 07/02/21 Jesi Leong [facility] [address] [place] [phone] Proof Coin Collector 12/24/21 09/20/22 Jesi Leong WAGON WINDER [address] [place] [phone] Behavioral Health Proof Coin CollectorInventory Control Specialist Care 10/19/22 01/23/24 documented as of this encounter
--- OUTSIDE RECORDS SUMMARY | 2024-06-10 07:20 | XMS_ITS | Encounter Summary ---
Author Organization [facility] Address [address] [place] [address] Care Team Providers Care Mathematical Technician Name Role Phone Jean Munoz MD Primary Care Provider Manny Rizzo MD Unavailable Reason for Visit * Reason Onset Date Comments Results 04/19/2017 Encounter Details Date Type Department Care Team (Late st Contact Info) Description 04/19/[address] [facility] Sleep Program - [address] [phone] Corrina Ac, RN [address] [place] [address] Results Social History Tobacco Use Types Packs/Day [...] encounter Miscellaneous Notes * Addendum Note - Nu Bacon MD - 04/19/2017 1418 EDTAddended by: NU BACON on: 04/19/2017 14:18 Modules accepted: Orders * Telephone Encounter - Corrina Ac RN - 04/19/2017 1359 EDT Patient made aware of diagnosis of moderate obstructive sleep apnea with severe sleep fragmentationas per Dr. Bacon. Doctor recommending recommending and prescribing autoCPAP treatment. The prescription will be sent to [facility], tele number given to patient. Encouraged patient to use CPAP nightly and w/naps once DME sets up with equipment and call DME or Sleep Program if any problems or questions. Pt on wait list for follow up appointment. No barriers to learning/pt verbalized understanding. documented in this encounter Plan of Treatment Upcoming Encounters Date Type Department Care Team (Late st Contact Info) Description 06/29/2024 14:15 EDT Office Visit [facility] Medicine [facility] 3 [place] [address] Jean Munoz MD [address] [place] [address] documented as of this encounter [...] Orde red Date CPAP/BIPAP MACHINE ORDER 1 04/19/2017 documented in this encounter Care Teams Mathematical Technician Relationship Specialty Start Date End Date Jean Munoz MD [address] [place] [phone] PCP - General 12/31/08 aMnny Rizzo MD [address] [place] [phone] 04/20/10 documented as of this encounter
--- OUTSIDE RECORDS SUMMARY | 2024-06-10 07:20 | XMS_ITS | Encounter Summary ---
Author Organization [facility] Address [address] [place] [address] Care Team Providers Care Dispatch Clerk Name Role Phone Jean Munoz MD Primary Care Provider Manny Rizzo MD Unavailable Reason for Visit * Reason Comments Split Night Polysomnogram Encounter Details Date Type Department Care Team (Late st Contact Info) Description 04/11/2017 20:00 EDT Office Visit [facility] Sleep Program - [facility] [address] [place] [address] Unknown, Provider, Tiana Bacon [facility] [place] [phone] KATJA (obstructive sleep apnea) (Primary Dx) Discharge [...] - Inhaled Oxygen Concentration - - Weight 88 kg (194 lb) 04/11/20172307 EDT Height 162.6 cm (5' 4) 04/11/2017 230 EDT Body Mass Index 33.3 04/11/2017 2308 EDT documented in this encounter Functional Status [...] Progress Notes * Tiana Bacon MD - 04/11/2017 2000 EDT [facility] [address] [place] [phone] / fax [phone] Name: Liset Viera : 1960 Study Date: 04/11/2017 Study Type: Diagnostic Polysomnogram In Summary: * Moderate Obstructive Sleep Apnea associated with minimal oxygen desaturation. Intermittent snoring. AHI 17.3. Average O2 Sat: 92%. Rodney O2 sat: 86%. The patient spent a total of 0 minutes of sleeptime with O2 saturation < 88%. * No supine sleep was observed. * The patient did not meet standard criteria to be started on CPAP by 2 a.m. * Sleep is notable for: reduced sleep efficiency of 54% and severe sleep fragmentation. * No Periodic Limb Movements of Sleep. Plan: * The patient should follow up with the requesting provider regarding the results of the DiagnosticPolysomnogram. * Clinical correlation of these results is recommended. Treatment options for obstructive sleep apnea if clinically appropriate include: PAP therapy, mandibular advancement device (oral appliance), upper airway surgery, positional therapy, weight loss. * The patient will be contacted by phone with the results of the study. Tiana Bacon MD 04/18/2017 19:40 documented in this encounter Plan of Treatment Upcoming Encounters Date Type Department Care Team (Late st Contact Info) Description 06/29/2024 14:15 EDT Office Visit [facility] [address] [place], [place] [phone] Jean Munoz MD [address] [place] [phone] documented as of this encounter Procedures Procedure Name Priority Date/Time Associated Diagnosis Comments SLEEP STUDY REPORT - SCANNED 04/18/2017 19:41 EDT documented in this encounter Results * SLEEP STUDY REPORT - SCANNED (04/18/2017 19:41 EDT) 04/18/2017 19:4 1 EDT Scan 2 Reflector Driller And Deburrer PROCEDURE/MINOR GURU GICAL ORDERABLES documented in this [...] colon documented in this encounter Care Teams Dispatch Clerk Relationship Specialty Start Date End Date Jean Munoz MD [address] [place] [phone] PCP - General 12/31/08 Manny Rizzo MD [address] [place] [address] 04/20/10 documented as of this encounter
--- OUTSIDE RECORDS SUMMARY | 2024-06-10 07:20 | XMS_ITS | Encounter Summary ---
Author Organization [facility] Address [address] [place] [address] Care Team Providers Care Environmental Remediation Specialist Name Role Phone Jean Munoz MD Primary Care Provider Manny Rizzo MD Unavailable Reason for Visit * Reason Onset Date Comments Medication Management 03/09/2017 Encounter Details Date Type Department Care Team (Late st Contact Info) Description 03/09/2017 Telephone [facility] [address] [place] [address] Jean Munoz MD [address] [place] [phone] Medication Management Social History Tobacco Use [...] Telephone Encounter - Lena Bell RN - 03/09/2017 1359 EDT Spoke with pharmacy and notified her of Judith's message Patient can orange picker machine operator early scripts on 03/11 Notified patient of above They understands and agrees with plan. No communication barriers identified. * Telephone Encounter - Dot Patel - 03/09/2017 1339 EDT Patient is calling to say that it is not her Ambien or Damascus that she is concerned about. She is concerned are concerned because she cannot pick her Lyrica up until February 18. She will be in [place]. She is not leaving until March 12, and that is why Dr. Munoz wrote the other ones for a start dateof March 11. Pharmacy need an okay to Fill Lyrica on the too, so that she can orange picker machine operator all scripts at that time. * Telephone Encounter - Judith Duarte NP - 03/09/2017 1316 EDT It looks like she was given 112 pills on 02/18 which means that she should have plenty as it has onlybeen 2 weeks. Even picking up on 03/11 is early, but would be ok if needed. In short-she can not orange picker machine operator until 03/11. * Telephone Encounter - Yadira Mccauley, CHRIS - 03/09/2017 1126 EDT Outgoing call to pharmacist. Current scripts state: Damascus, written 03/04/17, start date 03/11/17 Ambien, written 03/04/17, start date 03/11/17 She last filled these scripts on 02/18/17 and will be 1 week early filling them. Pharmacist believes the pt is going away and needs to orange picker machine operator early on 03/11/17. Routed to POD. * Telephone Encounter - Rukhsana Molina - 03/09/2017 1110 EDT Pharmacist calling. Pt has scripts dated 03/04 for ambien and norco. Pt wants to fill 6.29 which is a week early. Pharmacists believes the pt is going away and needs to orange picker machine operator early. Pharmacist wants to verify that it is okay to fill early documented in this encounter Plan of Treatment Upcoming Encounters Date Type Department Care Team (Late st Contact Info) Description 06/29/2024 14:15 EDT Office Visit [facility] [address] [place] [address] Jean Munoz MD [address] [place] [phone] documented as of this encounter Visit Diagnoses Not on filedocumented in this encounter Care Teams Environmental Remediation Specialist Relationship Specialty Start Date End Date Jean Munoz MD [address] [place] [phone] PCP - General 12/31/08 Manny Rizzo MD [address] [place] [phone] 04/20/10 documented as of this encounter
--- OUTSIDE RECORDS SUMMARY | 2024-06-10 07:20 | XMS_ITS | Encounter Summary ---
Author Organization [facility] Address [address] [place] [address] Care Team Providers Care Correctional Program Specialist Name Role Phone Jean Munoz MD Primary Care Provider Manny Rizzo MD Unavailable Reason for Visit * Reason Onset Date Comments Medications Refill 04/15/2017 Encounter Details Date Type Department Care Team (Late st Contact Info) Description 04/15/2017 Refill [facility] [address], [place] [phone] Jean Munoz MD [address] [place] [address] Medications Refill Social History Tobacco [...] Refills Start Date End Da te fexofenadine (CAROL ANN) 180 mg tablet Take 1 Tab by mouth daily. 90 Tab 04/15/2017 06/01/2017 documented in this encounter Miscellaneous Notes * Telephone Encounter - Yue Rogers - 04/15/2017 0859 EDT Medication(s) Requested: carol ann [facility] Last Refill Date: 04/13/16 Last Visit Date: 03/04/17 Next Visit Date: 06/01/2017 Is patient out of medication? Unknown Yue Rogers 04/15/2017 8:59 documented in this encounter Plan of Treatment Upcoming Encounters Date Type Department Care Team (Late st Contact Info) Description 06/29/2024 14:15 EDT Office Visit [facility] Medicine [facility] [address], [place] [phone] Jean Munoz MD [address] [place] [phone] documented as of this encounter Visit Diagnoses [...] Reason Start Date End Da te fexofenadine (CAROL ANN) 180 mg tabletIndications:Seasona l allergic rhinitis Take 1 Tab by mouth daily. Reorder 04/13/2016 04/15/2017 documented as of this encounter Care Teams Correctional Program Specialist Relationship Specialty Start Date End Date Jean Munoz MD [address] [place] [phone] PCP - General 12/31/08 Manny Rizzo MD [address] [place] [phone] 04/20/10 documented as of this encounter
--- OUTSIDE RECORDS SUMMARY | 2024-06-10 07:20 | XMS_ITS | Encounter Summary ---
Author Organization [facility] Address [address] [place] [address] Care Team Providers Care Animal Daycare Provider Name Role Phone Jean Munoz MD Primary Care Provider Manny Rizzo MD Unavailable Reason for Visit * Reason Onset Date Comments Medications Refill 04/06/2017 Encounter Details Date Type Department Care Team (Late st Contact Info) Description 04/06/2017 Telephone [facility] Sleep Program - [address] [phone] Tiana Bacon [address] [place] [address] Medications Refill Social History Tobacco [...] Refills Start Date End Da te methylphenidate (RITALIN;METHYLIN) 10 mg tablet Take one tab in the afternoon for narcolepsy. 30 Tab 04/08/2017 05/04/2017 methylphenidate (RITALIN;METHYLIN) 20 mg tablet Take 2 tabs by mouth in the morning. 60 Tab 04/08/2017 05/04/2017 documented in this encounter Miscellaneous Notes * Telephone Encounter - Paula Ceballos - 04/06/2017 1514 EDT Pt would prefer to pick these up vs having them mailed. Please call when ready * Telephone Encounter - Barbara Gimenez - 04/06/2017 0805 EDT Medication Refill Medication(s) Requested: Ritalin 20mg, Ritalin 10mg Pharmacy (reconcile pharmacy list): [facility] Last Visit Date: 01/27/17 Next Visit Date: Visit date not found Is patient out of medication? No Picking up/mailing (location)/calling in/eprescribe? PT to greens picker at front end software [facility], call her when ready 30 day supply/90 day supply? 30 Barbara Gimenez 04/06/20178:05 documented in this encounter Plan of Treatment Upcoming Encounters Date Type Department Care Team (Late st Contact Info) Description 06/29/2024 14:15 EDT Office Visit [facility] [address] [place] [address] Jean Munoz MD [address] [place] [address] documented as of this encounter Visit Diagnoses Not on filedocumented in this encounter Discontinued Medications Medication Sig Discontinue Reason Start Date End Da te methylphenidate (RITALIN;METHYLIN) 20 mg tablet Take 2 tabs by mouth in the morning. Reorder 03/09/2017 04/08/2017 methylphenidate (RITALIN;METHYLIN) 10 mg tablet Take one tab in the afternoon for narcolepsy. Reorder 03/09/2017 04/08/2017 documented as of this encounter Care Teams Animal Daycare Provider Relationship Specialty Start Date End Date Jean Munoz MD [address] [place] [phone] PCP - General 12/31/08 Manny Rizzo MD [address] [place] [phone] 04/20/10 documented as of this encounter
--- OUTSIDE RECORDS SUMMARY | 2024-06-10 07:20 | XMS_ITS | Encounter Summary ---
Author Organization [facility] Address [address] [place] [address] Care Team Providers Care Mortuary Operations Manager Name Role Phone Jean Munoz MD Primary Care Provider Manny Rizzo MD Unavailable Reason for Visit * Reason Onset Date Comments Medications Refill 04/15/2017 Encounter Details Date Type Department Care Team (Late st Contact Info) Description 04/15/2017 Refill [facility] [place] [address] [place], [place] [phone] Jean Munoz MD [address] [place] [address] Medications Refill Social History Tobacco [...] caps (600mg) 60 Cap 5 04/15/2017 10/05/2017 documented in this encounter Miscellaneous Notes * Telephone Encounter - Jean Munoz MD - 04/15/2017 1248 EDT Script done, please call in to pharmacy and notify patient, thanks * Telephone Encounter - Yue Rogers - 04/15/2017 0950 EDT Medication(s) Requested: lyrica [facility]acy: [facility] Last Refill Date: 11/16/16 Last Visit Date: 03/04/17 Next Visit Date: 06/01/2017 Is patient out of medication? unknown Yue Rogers 04/15/2017 9:51 documented in this encounter Plan of Treatment Upcoming Encounters Date Type Department Care Team (Late st Contact Info) Description 06/29/2024 14:15 EDT Office Visit [facility] [place] [address] [place] [address] Jean Munoz MD [address] [place] [phone] documented as of this encounter Visit [...] DAILY. daily max: 2 caps (600mg) Reorder 11/16/2016 04/15/2017 documented as of this encounter Care Teams Mortuary Operations Manager Relationship Specialty Start Date End Date Jean Munoz MD [address] [place] [phone] PCP - General 12/31/08 Manny Rizzo MD [address] [place] [phone] 04/20/10 documented as of this encounter
--- OUTSIDE RECORDS SUMMARY | 2024-06-10 07:20 | XMS_ITS | Encounter Summary ---
Author Organization [facility] Address [address] [place] [address] Care Team Providers Care Glass Furnace Operator Name Role Phone Jean Munzo MD Primary Care Provider Manny Rizzo MD Unavailable Afia Valle MD Unavailable Jesi Leong RETRIMMER Unavailable SaloJesi shanks RETRIMMER Unavailable Reason for Visit * Reason Comments Other Encounter Details Date Type Department Care Team (Late st Contact Info) Description 08/06/2017 Refill [facility] Family Medicine [facility] [address] [place], [place] [phone] Jean Munoz MD [address] [place] [address] Other Social History Tobacco Use [...] 2 tab 9 Tab 5 08/09/2017 02/02/2018 documented in this encounter Miscellaneous Notes * Telephone Encounter - Jean Munoz MD - 08/09/2017 1308 EST escript done, please notify patient, thanks * Telephone Encounter - Yadira Mccauley RN - 08/09/2017 1303 EST Medication(s) Requested: imitrex 50 Preferred Pharmacy: [facility] Is patient out of medication? Unknown Last Refill Date:05/19/17 Last Visit Date with Ordering Provider: 06/29/17 Next Non-Acute Visit Date Scheduled with Care Team: 09/22/17 Yadira Mccauley RN 08/09/2017 13:05 documented in this encounter Plan of Treatment Upcoming Encounters Date Type Department Care Team (Late st Contact Info) Description 06/29/2024 14:15 EDT Office Visit [facility] [address] [place] [address] Jean Munoz MD [address] [place] [address] documented as of this encounter [...] for migraine *daily maximum dose 2 tablets Reorder 05/19/2017 08/06/2017 documented as of this encounter Additional Health Concerns Infection Onset Date Last Indicated Resolved Time R/O COVID-19 05/15/2022 05/15/2022 05/20/2022 22:1 6 EDT R/O COVID-19 11/14/2022 11/14/2022 11/14/2022 19:1 6 EST documented as of this encounter Care Teams Glass Furnace Operator Relationship Specialty Start Date End Date Jean Munoz MD [address] [place] [address] PCP - General 12/31/08 Manny Rizzo MD [address] [place] [phone] 04/20/10 Afia Valle MD [address] [place] [address] [address] [place] [phone] MD Care Team Radiation Oncology 07/02/21 Jesi Leong LICSW [address] [place] [address] Director Of Email Marketing 12/24/21 09/20/22 Jesi Leong LICSW [address] [place] [address] Behavioral Health Director Of Email MarketingBeer Coil Cleaner Care 10/19/22 01/23/24 documented as of this encounter
--- OUTSIDE RECORDS SUMMARY | 2024-06-10 07:20 | XMS_ITS | Encounter Summary ---
Author Organization [facility] Address [address] [place] [address] Care Team Providers Care Sales Administration Specialist Name Role Phone Jean Munoz MD Primary Care Provider Manny Rizzo MD Unavailable Reason for Visit * Reason Comments Apnea Encounter Details Date Type Department Care Team (Late st Contact Info) Description 06/22/2017 13:00 EDT Office Visit [facility] Sleep Program - [address] [phone] Tiana Bacon [address] [place] [address] Moderate obstructive sleep apnea (Primary Dx) Social History Tobacco Use Types [...] Sign Reading Time Taken Comments Blood Pressure 90/60 06/22/2017 1253 EDT Pulse 87 06/22/2017 1253 EDT Temperature - - Respiratory Rate 20 06/22/2017 1253 EDT Oxygen Saturation 97% 06/22/2017 1253 EDT Inhaled Oxygen Concentration - - Weight 91.5 kg (201 lb 12.8 oz) 06/22/2017 1253 EDT Height - - Body Mass Index 34.64 04/11/2017 2308 EDT documented in this encounter [...] Progress Notes * Tiana Bacon MD - 06/22/2017 1300 EDT Name: Liset Viera : 1960 Date of Visit: 06/22/2017 HPI: Liset Viera is a 56 year old W with a 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 No hypoxemia. In lieu of PAP titration, a prescription for auto CPAP 5-15 cm H2O, was sent to [facility]. She states that she does not feel is restless in her sleep, and she is awake is often, now typically less than once per night whereas before it was 3-4 times per night. She now naps 1-2 times per week whereas before it was 3-4 days a week. She also notes that she relies less on Ambien to help her sleep--takes it a couple times a week, whereas before would be 4-5 times a week. Compliance Report May 21, 2017 to June 19, 2017 80 % usage > = 4 hours Average usage: 6 h 45 min AHI: 2.4 /hr Median leak: 3.5 LPM, 95th percentile: 27.4 LPM Median pressure: 7.8 cm H2O, 95th percentile: 12.9 LPM * Outpatient Prescriptions Marked as Taking for the 06/22/17 encounter (Office Visit) with Tiana Bacon MD Medication Sig Dispense Refill ??? amLODIPine (NORVASC) 5 mg tablet Take 1 Tab by mouth daily. 90 Tab 3 ??? blood glucose (BLOOD GLUCOSE TEST) test strips 1 Strip by misc (non-drug; combo route) route 2 times daily. 100 Each 1 ??? Ciclesonide 50 mcg spray,non-aerosol 1 spray each nostril daily 37.5 g 1 ??? docusate sodium (COLACE) 100 mg [...] 06/03/17 Daily Max: 8 Tabs 112 Tab 0 [...] morning. Earliest Fill Date: 06/03/17 60 Tab 0 ??? methylphenidate HCl (RITALIN;METHYLIN) 10 mg tablet Take one tab in the afternoon for narcolepsy. Earliest Fill Date: 06/03/17 30 Tab 0 ??? montelukast (SINGULAIR) 10 mg tablet TAKE 1 TABLET BY MOUTH EVERY DAY 90 Tab 4 ??? naloxone (NARCAN) 4 mg/actuation nasal spray 1 [place] by nasal route as needed for Opioid [...] as needed for Pain. Daily Max:200 mg 30 Tab 0 ??? XOPENEX HFA 45 mcg/actuation inhaler INHALE TWO PUFFS BY MOUTH EVERY SIX HOURS NEEDED 45 g 5 ??? zolpidem (AMBIEN) 5 mg tablet Take 1 Tab by mouth at bedtime as needed for Sleep. Daily Max: 5 mg 28 Tab 5 Allergies Allergen Reactions ??? Toradol [Ketorolac Tromethamine] Hives ??? Motrin [Ibuprofen] Itching ROS: A ten point ROS was performed and was negative except for pertinent positives in the HPI. EXAM: Vitals: 06/22/17 1253 BP: 90/60 BP Cuff Location: Left arm Patient Position: Sitting BP Cuff Sizes: Adult, regular Pulse: 87 Resp: 20 SpO2: 97% Weight: 91.5 kg (201 lb 12.8 oz) A/P: Moderate KATJA, well controlled on AutoCPAP 5-15 cm H2O Compliant usage Improved quality of sleep with PAP therapy. With regards to narcolepsy with cataplexy - will call when she needs refills on methylphenidate. Recommend continued usage of AutoCPAP with renewal of PAP therapy supplies. Follow up in 1 year. I spent a total of 20 minutes in face to face time with this patient and > 50 percent of that time was spent in counseling and coordination of care as described in the progress note. Tiana Bacon MD 06/22/2017 documented in this encounter Plan of Treatment Upcoming Encounters Date Type Department Care Team (Late st Contact Info) Description 06/29/2024 14:15 EDT [facility] [address] [place], [place] [phone] Jean Munoz MD [address] [place] [phone] documented as of this encounter Visit Diagnoses Diagnosis Moderate obstructive sleep apnea- Primary Obstructive sleep apnea (adult) (pediatric) Screening for osteoporosis- Primary Special screening for osteoporosis Primary narcolepsy without cataplexy Chronic pain syndrome Chronic low back pain Lumbago Chronic use of opiate for therapeutic purpose Pain medication agreement Encounter for long-term (current) use of other medications Screen for colon cancer Special screening for malignant neoplasms, colon documented in this encounter Care Teams Sales Administration Specialist Relationship Specialty Start Date End Date Jean Munoz MD [address] [place] [phone] PCP - General 12/31/08 Manny Rizzo MD [address] [place] [phone] 04/20/10 documented as of this encounter
--- OUTSIDE RECORDS SUMMARY | 2024-06-10 07:21 | XMS_ITS | Encounter Summary ---
Author Organization [facility] Address [address] [place] [address] Care Team Providers Care Consulting Practice Manager Name Role Phone Jean Munoz MD Primary Care Provider Manny Rizzo MD Unavailable Reason for Visit * Reason Onset Date Comments Hospital Discharge Follow Up 01/05/2017 Encounter Details Date Type Department Care Team (Late st Contact Info) Description 01/05/2017 Telephone [facility] [address] [place] [address] Lena Bell RN Hospital Discharge Follow Up Social History Tobacco Use Types Packs/Day Years [...] Miscellaneous Notes * Telephone Encounter - Lena Healy RN - 01/05/2017 1340 EDT Hospital Discharge Follow Up: Reason for admission: Acute hypoxemic respiratory failure Symptoms improving? yes Discharge instructions available? yes Medications Reviewed/prescriptions filled? yes Support at home? Yes, brother and Home health service/issues? no - Questions about discharge instructions? no - Follow-up visit scheduled? Yes appointment scheduled for 01/14 Education/Plan: Pt understands. No communication barriers identified. Lena Healy RN 01/05/2017 * Telephone Encounter - Cat Armijo - 01/05/2017 1258 EDT Calling to leave message regarding discharge. She wants Dr. Munoz to review the discharge summary and to inform him that she sent Liset home with prescription for Metformin and glucometer. If questions, Dr. Munoz can call her through PAS or page her. * Telephone Encounter - Lena Healy RN - 01/05/2017 1254 EDT Hospital Discharge call made - Left message for the patient to call our office and speak with a nurse to review their discharge instructions, medications and arrange for a follow up in the next 7 days. documented in this encounter Plan of Treatment Upcoming Encounters Date Type Department Care Team (Late st Contact Info) Description 06/29/2024 14:15 EDT Office Visit [facility] [address] [place] [address] Jean Munoz MD [address] [place] [address] documented as of this encounter Visit Diagnoses Not on filedocumented in this encounter Care Teams Consulting Practice Manager Relationship Specialty Start Date End Date Jena Munoz MD [address] [place] [phone] PCP - General 12/31/08 Manny Rizzo MD [address] [place] [address] 04/20/10 documented as of this encounter
--- OUTSIDE RECORDS SUMMARY | 2024-06-10 07:21 | XMS_ITS | Encounter Summary ---
Author Organization [facility] Address [address] [place] [address] Care Team Providers Care Java Spring Developer Name Role Phone Jean Munoz MD Primary Care Provider Manny Rizzo MD Unavailable Reason for Visit * Reason Onset Date Comments Pharmacy 03/03/2017 [facility] Encounter Details Date Type Department Care Team (Late st Contact Info) Description 03/03/2017 Telephone [facility] Pulmonology & Critical Care - Main [place] [address] [place], [place] [phone] Xena Jiménez MD [address] [facility] [address] [address] [place] [phone] Pharmacy ([facility]) Social History Tobacco Use Types Packs/Day Years [...] encounter Miscellaneous Notes * Telephone Encounter - Susan Villasenor RN - 03/03/2017 1446 EDT Clarified dose with esha in pharmacy. * Telephone Encounter - Timothy Dumont - 03/03/2017 1440 EDT Esha from [place] has questions regarding the script for Advair that was sent over. It's different from the one that is on file. Please advise documented in this encounter Plan of Treatment Upcoming Encounters Date Type Department Care Team (Late st Contact Info) Description 06/29/2024 14:15 EDT Office Visit [facility] Family Medicine [facility] [address] [place] [address] Jean Munoz MD [address] [place] [address] documented as of this encounter Visit Diagnoses Not on filedocumented in this encounter Care Teams Java Spring Developer Relationship Specialty Start Date End Date Jean Munoz MD [address] [place] [phone] PCP - General 12/31/08 Manny Rizzo MD [facility] [place] [phone] 04/20/10 documented as of this encounter
--- OUTSIDE RECORDS SUMMARY | 2024-06-10 07:21 | XMS_ITS | Encounter Summary ---
Author Organization [facility] Address [address] [place] [address] Care Team Providers Care Grinding And Polishing Laborer Name Role Phone Jean Munoz MD Primary Care Provider Manny Rizzo MD Unavailable Reason for Visit * Reason Onset Date Comments Medications Refill 02/09/2017 Encounter Details Date Type Department Care Team (Late st Contact Info) Description 02/09/2017 Telephone [facility] Sleep Program - [address] [address] Tiana Bacon [address] [place] [address] Medications Refill Social History Tobacco [...] the afternoon for narcolepsy. Earliest Fill Date: 02/09/17 30 Tab 02/09/2017 03/09/2017 methylphenidate (RITALIN;METHYLIN) 20 mg tablet Take 2 tabs by mouth in the morning. Earliest Fill Date: 02/09/17 60 Tab 02/09/2017 03/09/2017 documented in this encounter Miscellaneous Notes * Telephone Encounter - Corrina Ac RN - 02/09/2017 1047 EDT Spoke with patient and let her know her (ritalin ) prescription(s) ready for apple picking supervisor at the Sleep Program. * Telephone Encounter - Lata Malcolm - 02/09/2017 0957 EDT Medication Refill Medication(s) Requested: ritalin 20 mg Pharmacy (reconcile pharmacy list): [facility] Last Visit Date: 01/27/17 Next Visit Date: 06/15/2017 Is patient out of medication? No Picking up/mailing (location)/calling in/eprescribe? supervisor mattress and boxsprings at sleep center/RN calls when scripts are ready 30 day supply/90 day supply? 30 Lata Malcolm 02/09/20179:57 Medication Refill Medication(s) Requested: 10 mg Pharmacy (reconcile pharmacy list): [facility] Last Visit Date: 01/27/17 Next Visit Date: 06/15/2017 Is patient out of medication? No Picking up/mailing (location)/calling in/eprescribe? supervisor mattress and boxsprings at sleep center/RN calls when scripts are ready for apple picking supervisor 30 day supply/90 day supply? 30 Lata Malcolm 02/09/20179:58 documented in this encounter Plan of Treatment Upcoming Encounters Date Type Department Care Team (Late st Contact Info) Description 06/29/2024 14:15 EDT Office Visit [facility] [address] [place] [address] Jean Munoz MD [address] [place] [address] documented as of this encounter Visit Diagnoses Not on filedocumented in this encounter Discontinued Medications Medication Sig Discontinue Reason Start Date End Da te methylphenidate (RITALIN;METHYLIN) 20 mg tablet Take 2 tabs by mouth in the morning. Reorder 01/12/2017 02/09/2017 methylphenidate (RITALIN;METHYLIN) 10 mg tablet Take one tab in the afternoon for narcolepsy. Reorder 01/12/2017 02/09/2017 documented as of this encounter Care Teams Grinding And Polishing Laborer Relationship Specialty Start Date End Date Jean Munoz MD [address] [place] [address] PCP - General 12/31/08 Manny Rizzo MD [address] [place] [address] 04/20/10 documented as of this encounter
--- OUTSIDE RECORDS SUMMARY | 2024-06-10 07:21 | XMS_ITS | Encounter Summary ---
Author Organization [facility] Address [address] [place] [address] Care Team Providers Care Conditioner Tumbler Operator Name Role Phone Jean Munoz MD Primary Care Provider Manny Rizzo MD Unavailable Reason for Referral * Consult (Routine/Next Available) - Closed Specialty Diagnoses / Procedures [facility] Referred To Contact Diagnoses Panlobular emphysema (HCC-CMS) Jean Munoz MD [address] [place] [phone] Referral ID Status Reason Start Date Expiration Date V isits Requested Visits Authorized [id number] Closed Specialty Services Required 03/04/2017 1 1 Question Answer What areas would you like the C[facility] to focus on? Nutrition Help What goals would you like the patient to meet? wants to lose weight, referral suggested by Pulmonology Patient's Weight (kg) (1 lb = 0.4536 kg): 88.9 Patient's Height (cm) (1 in = 2.54 cm): 162.3 Comments As we discussed in your visit today, someone will be contacting you from the [facility] Team to schedule an appointment with you. If you do not hear from the CHT within a week please call the Community Health Team at [phone]. * Follow Up (Routine/Next Available) - Specialty Report Received Specialty Diagnoses / Procedures Referred By Alex weldon Referred To Contact Orthopedic Surgery Diagnoses Right ankle pain, unspecified chronicity Jean Munoz MD [address] [place] [phone] Liu Tilley MD [address] [place] [phone] Referral ID Status Reason Start Date Expiration Date Visits Requested Visits Authorized [id number] Specialty Report Received Specialty Services Required 03/04/2017 1 1 Question Answer Reason for Request: right ankle pain, follow up Dr Gutierres Reason for Visit * Reason Comments Chronic Pain Encounter Details Date Type Department Care Team (Late st Contact Info) Description 03/04/2017 13:00 EDT Office Visit [facility] [address] [place] [address] Jean Munoz MD [address] [place] [phone] Chronic pain syndrome (Primary Dx); Chronic low back pain, unspecified back pain laterality, with sciatica presence unspecified; Panlobular emphysema (CMS-HCC) (HCC-CMS); Impaired glucose tolerance; Right ankle pain, unspecified chronicity; Migraine without status migrainosus, not intractable, unspecified migraine type; Obesity, unspecified obesity severity, unspecified obesity type; Insomnia, unspecified type; Primary narcolepsy without [...] Sign Reading Time Taken Comments Blood Pressure 118/70 03/04/2017 1305 EDT Pulse 84 03/04/2017 1305 EDT Temperature 36.8 ??C (98.3 ??F) 03/04/2017 1305 EDT Respiratory Rate 17 03/04/2017 1305 EDT Oxygen Saturation - - Inhaled Oxygen Concentration - - Weight 88.9 kg (196 lb) 03/04/2017 1305 EDT Height 162.3 cm (5' 3.9) 03/04/2017 1305 EDT Body Mass Index 33.75 03/04/2017 1305 EDT documented in this encounter Functional Status [...] Dispensed Refills Start Date End Da te lancetsIndications:Impai red glucose tolerance Brand: One Touch Delica 100 Each 2 03/04/2017 11/10/2018 zolpidem (AMBIEN) 5 mg tabletIndications:Insomn ia, unspecified type Take 1 Tab by mouth at bedtime as needed for Sleep. Daily Max: 5 mg 28 Tab 5 03/04/2017 09/01/2017 amLODIPine (NORVASC) 2.5 mg tabletIndications:Migrai ne without status migrainosus, not intractable, unspecified migraine type Take 1 Tab by mouth daily. 30 Tab 5 03/04/2017 05/14/2017 HYDROcodone-acetaminophe n (NORCO) 5-325 mg tabletIndications:Chroni c pain syndrome Take 1-2 Tabs by mouth every 6 hours as needed for up to 28 days for Pain. Earliest Fill Date: 03/11/17 Daily Max: 8 Tabs 112 Tab 03/11/2017 06/01/2017 HYDROcodone-acetaminophe n (NORCO) 5-325 mg tabletIndications:Chroni c pain syndrome Take 1-2 Tabs by mouth every 6 hours as needed for up to 28 days for Pain. Earliest Fill Date: 04/08/17 Daily Max: 8 Tabs 112 Tab 04/08/2017 06/29/2017 HYDROcodone-acetaminophe n (NORCO) 5-325 mg tabletIndications:Chroni c pain syndrome Take 1-2 Tabs by mouth every 6 hours as needed for up to 28 days for Pain. Earliest Fill Date: 05/06/17 Daily Max: 8 Tabs 112 Tab 05/06/2017 06/29/2017 documented in this encounter Progress Notes * Jean Munoz MD - 03/04/2017 1300 EDT Subjective: Patient ID: Liset Viera is an 56 y.o. female. Chief Complaint Patient presents with ??? Chronic Pain HPI Liset is a 56 year old female here for follow up of multiple issues Was recently admitted for acute respiratory failure with hypoxia See discharge summery for details Since discharge she has improved Follow-up pulmonology pending Spiriva stopped Advair decreased Breathing improved Some cough Attributes to allergies Using fexofenadine Also had steroid-induced hyperglycemia Has finished prednisone Stopped metformin Checking sugars bid 130-175 Chronic pain syndrome Has been more active Hurts to wash dishes Needs refill Also problem with right ankle Turns in with weight bearing Has had pain For a long time Feels like it will snap Last Xrays 2011 Migraines Still has headaches, less frequent, still painful Frequency 2x/week Currently on pregabalin Not currently on magnesium or riboflavin will review at next visit Active problem list, past medical history, past [...] Other disorders of eyelid ??? Fibromyalgia ??? Laceration of right hand ??? Nausea ??? Steroid-induced hyperglycemia Past Medical History: Diagnosis Date ??? Abdominal [...] to Visit Medication Sig Dispense Refill ??? baclofen (LIORESAL) 10 mg tablet Take [...] 2 times daily. 30 Tab 0 ??? hydroxypropyl methylcellulose (ISOPTO TEARS) 0.5 % ophthalmic solution Place 1 Drop into both eyes 5 times daily. ??? ipratropium-albuterol (DUONEB) 0.5 mg-3 mg(2.5 mg base)/3 mL nebulizer solution Take 3 mL by nebulization every 4 hours as needed for Wheezing. 3 mL 3 ??? levalbuterol (XOPENEX HFA) 45 mcg/actuation inhaler INHALE TWO PUFFS BY MOUTH EVERY SIX HOURS NEEDED 3 Inhaler 3 ??? LYRICA 300 mg capsule TAKE ONE CAPSULE BY MOUTH TWICE DAILY. daily max: 2 caps (600mg) 60 Cap 4 ??? metFORMIN (GLUCOPHAGE) 500 mg tablet Take 1 Tab by mouth 2 times daily. While on steroid taper 60 Tab 0 ??? montelukast (SINGULAIR) 10 mg [...] by mouth daily. 180 Tab 3 ??? tamsulosin (FLOMAX) 0.4 mg [...] rarely ROS - See HPI Objective: BP 118/70 (BP Cuff Location: Left arm) Pulse 84 Temp 36.8 ??C (98.3 ??F) (Tympanic) Resp 17 Ht 162.3 cm (63.9) Wt 88.9 kg (196 lb) LMP 01/11/1987 BMI 33.75 kg/m2 Physical Exam Alert, cooperative Right ankle with pronation Assessment: See below Plan: Liset was seen today for chronic pain. Diagnoses and all orders for this visit: Chronic pain syndrome - HYDROcodone-acetaminophen (NORCO) 5-325 mg tablet; Take 1-2 Tabs by mouth every 6 hours as neededfor up to 28 days for Pain. Earliest Fill Date: 05/06/17 Daily Max: 8 Tabs - HYDROcodone-acetaminophen (NORCO) 5-325 mg tablet; Take 1-2 Tabs by mouth every 6 hours as neededfor up to 28 days for Pain. Earliest Fill Date: 04/08/17 Daily Max: 8 Tabs - HYDROcodone-acetaminophen (NORCO) 5-325 mg tablet; Take 1-2 Tabs by mouth every 6 hours as neededfor up to 28 days for Pain. Earliest Fill Date: 03/11/17 Daily Max: 8 Tabs Stable Has been on opiates chronically Likely iatrogenic opiate dependence now Has consent/agreement on file 2013, will need o update at next visit Chronic low back pain, unspecified back pain laterality, with sciatica presence unspecified As above Panlobular emphysema - AMB CONS/FOLLOW UP [facility] Follow up with pulmonology also Impaired glucose tolerance - lancets; Brand: One Touch Delica Right ankle pain, unspecified chronicity - Amb Consult/Follow Up Orthopedics Migraine without status migrainosus, not intractable, unspecified migraine type - amLODIPine (NORVASC) 2.5 mg tablet; Take 1 Tab by mouth daily. Obesity, unspecified obesity severity, unspecified obesity type Insomnia, unspecified type - zolpidem (AMBIEN) 5 mg tablet; Take 1 Tab by mouth at bedtime as needed for Sleep. Daily Max: 5 mg Primary narcolepsy without cataplexy Follow up Sleep [facility] Patient Education Topic: as above Method: Verbal Taught to: Patient Barriers: None Outcomes: Verbalized understanding Return in 3 months (on 06/03/2017) for SERA chronic pain. documented in this encounter Plan of Treatment Upcoming Encounters Date Type Department Care Team (Late st Contact Info) Description 06/29/2024 14:15 EDT Office Visit [facility] [address] [place] [address] Jean Munoz MD [address] [place] [phone] Scheduled Referrals Name Type Priority Associated Diagnoses Orde r Schedule AMB CONS/FOLLOW UP ORTHOPEDICS Outpatient Referral Routine Right ankle pain, unspecified chronicity Ordered: 03/04/2017 AMB CONS/FOLLOW UP [facility] Outpatient Referral Routine Panlobular emphysema ([facility]) ([facility]) Ordered: 03/04/2017 documented as of this encounter Visit Diagnoses Diagnosis Chronic pain syndrome- Primary Chronic low back pain, unspecified back pain laterality, with sciatica presence unspecified Panlobular emphysema ([facility]) Other emphysema Impaired glucose tolerance Impaired glucose tolerance test Right ankle pain, unspecified chronicity Migraine without status migrainosus, not intractable, unspecified migraine type Obesity, unspecified obesity severity, unspecified obesity type Insomnia, unspecified type Primary narcolepsy without [...] te tiotropium bromide (SPIRIVA RESPIMAT) 1.25 mcg/actuation mistIndications:Chroni c obstructive pulmonary disease, unspecified COPD type ([facility]) Inhale 2.5 mcg as directed daily. Patient Stopped Taking 04/13/2016 03/04/2017 HYDROcodone-acetaminop hen (NORCO) 5-325 mg tabletIndications:Supervisor Matrix majo pain syndrome Take 1-2 Tabs by mouth every 6 hours as needed for up to 12 days for Pain. Earliest Fill Date: 02/18/17 Daily Max: 8 Tabs Reorder 02/18/2017 03/04/2017 zolpidem (AMBIEN) 5 mg tabletIndications:Inso mnia, unspecified type Take 1 Tab by mouth at bedtime as needed for Sleep. Daily Max: 5 mg Reorder 10/01/2016 03/04/2017 documented as of this encounter Care Teams Conditioner Tumbler Operator Relationship Specialty Start Date End Date Jean Munoz MD [address] [place] [phone] PCP - General 12/31/08 Manny Rizzo MD [address] [place] [phone] 04/20/10 documented as of this encounter
--- OUTSIDE RECORDS SUMMARY | 2024-06-10 07:21 | XMS_ITS | Encounter Summary ---
Author Organization [facility] Address [address] [place] [address] Care Team Providers Care Relations Liaison Name Role Phone Jean Munoz MD Primary Care Provider Manny Rizzo MD Unavailable Reason for Visit * Reason Onset Date Comments Medications Refill 03/08/2017 Encounter Details Date Type Department Care Team (Late st Contact Info) Description 03/08/2017 Telephone [facility] - [address] [id number] Tiana Bacon [address] [place] [phone] Medications Refill Social History Tobacco [...] in the afternoon for narcolepsy. 30 Tab 03/09/2017 04/08/2017 methylphenidate (RITALIN;METHYLIN) 20 mg tablet Take 2 tabs by mouth in the morning. 60 Tab 03/09/2017 04/08/2017 documented in this encounter Miscellaneous Notes * Telephone Encounter - Corrina Ac RN - 03/09/2017 1057 EDT Spoke with patient and let her know her (ritalin) prescription(s) ready for rock picker at the Sleep Program. * Telephone Encounter - Corrina Ac RN - 03/09/2017 1011 EDT Spoke w/pt. She would like to rock picker ritalin prescriptions today as she is leaving town. * Telephone Encounter - Paula Ceballos - 03/08/2017 1049 EDT Medication Refill Medication(s) Requested: Ritalin 10/20mg Pharmacy (reconcile pharmacy list): [employer] [facility] by 6.28 as going out of town Last Visit Date: 01.27.17 Next Visit Date: 06/15/2017 Is patient out of medication? Out on Wednesday Picking up/mailing (location)/calling in/eprescribe? 30 day supply/90 day supply?30 Paula Ceballos 03/08/201710:49 documented in this encounter Plan of Treatment Upcoming Encounters Date Type Department Care Team (Late st Contact Info) Description 06/29/2024 14:15 EDT Office Visit [facility] [address] [place] [address] Jean Munoz MD [address] [place] [phone] documented as of this encounter Visit Diagnoses Not on filedocumented in this encounter Discontinued Medications Medication Sig Discontinue Reason Start Date End Da te methylphenidate (RITALIN;METHYLIN) 20 mg tablet Take 2 tabs by mouth in the morning. Earliest Fill Date: 02/09/17 Reorder 02/09/2017 03/09/2017 methylphenidate (RITALIN;METHYLIN) 10 mg tablet Take one tab in the afternoon for narcolepsy. Earliest Fill Date: 02/09/17 Reorder 02/09/2017 03/09/2017 documented as of this encounter Care Teams Relations Liaison Relationship Specialty Start Date End Date Jean Munoz MD [address] [place] [phone] PCP - General 12/31/08 Manny Rizzo MD [facility] [place] [phone] 04/20/10 documented as of this encounter
--- OUTSIDE RECORDS SUMMARY | 2024-06-10 07:21 | XMS_ITS | Encounter Summary ---
Author Organization [facility] Address [address] [place] [address] Care Team Providers Care Gauge And Instrument Inspector Name Role Phone Jean Munoz MD Primary Care Provider Manny Rizzo MD Unavailable Reason for Visit * Reason Comments Social Work Encounter Details Date Type Department Care Team (Late st Contact Info) Description 03/04/2017 Community [facility] Team [facility] [address] [place] [address] Claudia Pro V, BEADER [address] [place] [phone] Social History Tobacco Use Types [...] Progress Notes * Claudia Pro LICSW - 03/04/2017 1146 EDT Patient did not arrive for scheduled appointment with T Clothing Manager. This is third no-show. [facility], [address] [place] [address] Total Time: 5 min Referral: n/a Follow up: Admin-this is 3rd NOS Status: Active documented in this encounter Plan of Treatment Upcoming Encounters Date Type Department Care Team (Late st Contact Info) Description 06/29/2024 14:15 EDT Office Visit [address] [phone] Jean Munoz MD [address] [place] [phone] documented as of this encounter Visit Diagnoses Not on filedocumented in this encounter Care Teams Gauge And Instrument Inspector Relationship Specialty Start Date End Date Jean Munoz MD [address] [place] [phone] PCP - General 12/31/08 Manny Rizzo MD [address] [place] [phone] 04/20/10 documented as of this encounter
--- OUTSIDE RECORDS SUMMARY | 2024-06-10 07:21 | XMS_ITS | Encounter Summary ---
Author Organization [facility] Address [address] [place] [address] Care Team Providers Care German Professor Name Role Phone Jean Munoz MD Primary Care Provider Manny Rizzo MD Unavailable Reason for Referral * Referral (Routine/Next Available) - Closed Specialty Diagnoses / Procedures Referred By [facility] Referred To Contact Diagnoses Stress Jean Munoz MD [address] [place] [phone] Referral ID Status Reason Start Date Expiration Date V isits Requested Visits Authorized [id number] Closed Specialty Services Required 01/14/2017 1 1 Question Answer What areas would you like the CHT to focus on? Rn Pacu If Yes to Rn Pacu, Please Select from the Following: Connecting to Community Therapist What goals would you like the patient to meet? depression, anxiety, stress, wants therapist in [facility] Patient's Weight (kg) (1 lb = 0.4536 kg): 89.4 Comments As we discussed in your visit today, someone will be contacting you from the Community Health Team to schedule an appointment with you. If you do not hear from the CHT within a week please call the Community Health Team at [phone]. Reason for Visit * Reason Comments Hospital Discharge Follow Up * Follow Up (Routine) - Closed Specialty Diagnoses / Procedures Referred By Contac t Referred To Contact Diagnoses Acute hypoxemic respiratory failure (HCC-CMS) Chronic obstructive pulmonary disease, unspecified COPD type (HCC-CMS) Steroid-induced hyperglycemia Gina Kennedy MD [address] [place] [address] Referral ID Status Reason Start Date Expiration Date V isits Requested Visits Authorized [id number] Closed Continuity of Care 01/04/2017 1 1 Encounter Details Date Type Department Care Team (Late st Contact Info) Description 01/14/2017 11:30 EDT Office Visit [facility] [address] [place] [address] Jean Munoz MD [address] [place] [address] Acute respiratory failure with hypoxia (CMS-HCC) (Primary Dx); Steroid-induced hyperglycemia; Chronic pain syndrome; Migraine without status migrainosus, not intractable, unspecified migraine type; Stress Social History Tobacco Use Types Packs/Day Years [...] Sign Reading Time Taken Comments Blood Pressure 110/75 01/14/2017 1127 EDT Pulse 72 01/14/2017 1127 EDT Temperature 36.6 ??C (97.8 ??F) 01/14/2017 1127 EDT Respiratory Rate 18 01/14/2017 1127 EDT Oxygen Saturation - - Inhaled Oxygen Concentration - - Weight 89.4 kg (197 lb) 01/14/2017 1127 EDT Height - - Body Mass Index 33.8 12/27/2016 0700 EDT documented in this encounter Functional Status [...] No 12/27/2016 documented as of this encounter Patient Instructions * Patient Instructions* Jean Munoz MD - 01/14/2017 11:30 EDT [facility] Patient Instructions Recurring Migraine Headache: Care Instructions Your Care Instructions Migraines are painful, throbbing headaches. They often start on one side of the head. They may cause nausea and vomiting and make you sensitive to light, sound, or smell. Some people may have only a few migraines throughout life. Others have them as often as several times a month. The goal of treatment is to reduce the number of migraines you have and relieve your symptoms. Evenwith treatment, you may continue to have migraines. You play an important role in dealing with yourheadaches. Work on avoiding things that seem to trigger your migraines. When you feel a headache coming on, act quickly to stop it before it gets worse. Follow-up care is a horton part of your treatment and safety. Be sure to make and go to all appointments, and call your doctor if you are having problems. It's also a good idea to know your test resultsand keep a list of the medicines you take. How can you care for yourself at home? ?? Do not drive if you have taken a prescription pain medicine. ?? Rest in a quiet, dark room until your headache is gone. Close your eyes and try to relax or go to sleep. Do not watch TV or read. ?? Put a cold, moist cloth or cold pack on the painful area for 10 to 20 minutes at a time. Put a thin cloth between the cold pack and your skin. ?? Have someone gently massage your neck and shoulders. ?? Take your medicines exactly as prescribed. Call your doctor if you think you are having a problem with your medicine. You will get more details on the specific medicines your doctor prescribes. To prevent migraines ?? Keep a headache diary so you can figure out what triggers your headaches. Avoiding triggers may help you prevent headaches. Record when each headache began, how long it lasted, and what the pain was like. Use words like throbbing, aching, stabbing, or dull. Write down any other symptoms you had with the headache. These may include nausea, flashing lights or dark spots, or sensitivity to brightlight or loud noise. Note if the headache occurred near your period. List anything that might have triggered the headache. Triggers may include certain foods (chocolate, cheese, wine) or odors, smoke, bright light, stress, or lack of sleep. ?? If your doctor has prescribed medicine for your migraines, take it as directed. You may have medicine that you take only when you get a migraine and medicine that you take all the time to help prevent migraines. ?? If your doctor has prescribed medicine for when you get a headache, take it at the first sign ofa migraine, unless your doctor has given you other instructions. ?? If your doctor has prescribed medicine to prevent migraines, take it exactly as prescribed. Callyour doctor if you think you are having a problem with your medicine. ?? Find healthy ways to deal with stress. Migraines are most common during or right after stressfultimes. Take time to relax before and after you do something that has caused a migraine in the past. ?? Try to keep your muscles relaxed by keeping good posture. Check your jaw, face, neck, and shoulder muscles for tension. Try to relax them. When sitting at a desk, change positions often. Stretch for 30 seconds each hour. ?? Get regular sleep and exercise. ?? Eat regular meals, and avoid foods and drinks that often trigger migraines. These include chocolate and alcohol, especially red wine and port. Chemicals used in food, such as aspartame and monosodium glutamate (MSG), also can trigger migraines. So can some food additives, such as those found in hot dogs, godfrey, cold cuts, aged cheeses, and pickled foods. ?? Limit caffeine by not drinking too much coffee, tea, or soda. Do not quit caffeine suddenly, because that can also give you migraines. ?? Do not smoke or allow others to smoke around you. If you need help quitting, talk to your doctorabout stop-smoking programs and medicines. These can increase your chances of quitting for good. ?? If you are taking control pills or hormone therapy, talk to your doctor about whether theyare triggering your migraines. When should you call for help? Call 911 anytime you think you may need emergency care. For example, call if: ?? You have symptoms of a stroke. These may include: ?? Sudden numbness, tingling, weakness, or loss of movement in your face, arm, or leg, especially on only one side of your body. ?? Sudden vision changes. ?? Sudden trouble speaking. ?? Sudden confusion or trouble understanding simple statements. ?? Sudden problems with walking or balance. ?? A sudden, severe headache that is different from past headaches. Call your doctor now or seek immediate medical care if: ?? You develop a fever and a stiff neck. ?? You have new nausea and vomiting, or you cannot keep down food or liquids. Watch closely for changes in your health, and be sure to contact your doctor if: ?? You have a headache that does not get better within 1 or 2 days. ?? Your headaches get worse or happen more often. Where can you learn more? Go to www.KwiClick.net/Paytellerer or log into your [employer] Online account at [email or web address] [email or web address]. Enter V975 in the search box to learn more about Recurring Migraine Headache: Care Instructions. Current as of: June 26, 2016 Content Version: 11.2 ?? [id number] [employer]PR. Care instructions adapted under license by [facility] If you have questions about a medical condition or this instruction, always ask your healthcare professional. [employer] disclaims any warranty or liability foryour use of this information. [facility] Patient Instructions Deciding About Taking Medicine to Prevent Migraines What are migraines? Migraines are painful, throbbing headaches. They can last from 4 to 72 hours. They often occur on only one side of your head. But you may feel them on both sides. The pain may keep you from doing your daily activities. You may take a daily medicine if you get bad migraines often. This can help prevent them. What are horton points about this decision? ?? Medicines to prevent migraines may not stop them every time. But if you take them daily, you canreduce how many migraines you get by more than half. They can also reduce how long migraines last. And your symptoms may not be as bad. ?? Medicines that prevent migraines may cause side effects. You may have sleep and memory problems,upset stomach, dry mouth, or constipation. Some of these side effects may last for as long as you take the medicine. Or they may go away within a few weeks. Why might you choose to take medicine to prevent migraines? ?? You are willing to take medicine daily if it will help your symptoms. ?? You don't think the side effects of the medicine could be as bad as your migraine symptoms. ?? Your migraines get in the way of your work. Or they harm your relationships with friends and family. ?? Benefits of medicine include fewer or no migraines. And your migraines may not last as long or feel as bad. Why might you choose not to take medicine to prevent migraines? ?? You want to avoid the side effects of the medicine. ?? You don't want to take medicine every day. ?? Your migraines are not affecting your work and relationships. ?? If your symptoms don't improve with home treatment and other medicines, you can decide later to take medicine every day to help prevent migraines. Your decision Thinking about the facts and your feelings can help you make a decision that is right for you. Be sure you understand the benefits and risks of your options, and think about what else you need to do before you make the decision. Where can you learn more? Go to www.KwiClick.net/Bravoflyedcenter or log into your [employer] Online account at https://[email or web address].line.[email or web address]. Enter L666 in the search box to learn more about Deciding About Taking Medicine to Prevent Migraines. Current as of: June 26, 2016 Content Version: 11.2 ?? [id number] [employer]. Care instructions adapted under license by [facility] If you have questions about a medical condition or this instruction, always ask your healthcare professional. [employer] disclaims any warranty or liability foryour use of this information. documented in this encounter Ordered Prescriptions Prescription Sig Dispensed Refills Start Date End Da te blood glucose (BLOOD GLUCOSE TEST) test strips 1 Strip by misc (non-drug; combo route) route 2 times daily. 100 Each 1 01/14/2017 07/05/2018 documented in this encounter Progress Notes * Jean Munoz MD - 01/14/2017 1130 EDT Subjective: Patient ID: Liset Viera is an 56 y.o. female. Chief Complaint Patient presents with ??? Hospital Discharge Follow Up HPI 56-year-old female here for follow-up of recent mission for pneumonia/COPD exacerbation States that breathing has improved Slow improvement No fever, chills, sweats now On prednisone taper Was noted to have hyperglycemia on prednisone Sugars 113-220 Checking bid On metformin Was on BiPap Also migraine headaches Not given migraine medication in hospital Imitrex all 9 every month Was given Fioricet, this seemed to work for her Also has chronic pain syndrome, already dependent on opiates Active problem list, past medical history, past surgical history, medications, allergies, family history and social history were reviewed. Plans to attend daughter's wedding in [place] on March 13 Patient Active Problem List Diagnosis ??? Severe major depression without psychotic features ??? Gastroesophageal reflux disease ??? Chronic back pain ??? Obesity ??? Cervicalgia ??? Impaired glucose tolerance ??? Migraine ??? Peptic ulcer ??? Asthma ??? Restless legs syndrome ??? Insomnia ??? [...] ??? Wears eyeglasses ??? Chronic fatigue ??? Chronic obstructive pulmonary disease ??? Blurry vision, bilateral ??? Pyogenic granuloma [...] needed (mucles tightness). 180 Tab 3 ??? Ciclesonide 50 mcg spray,non-aerosol 100 mcg [...] 90 Tab 3 ??? fluticasone-salmeterol (ADVAIR HFA) 230-21 mcg/actuation inhaler INHALE TWO PUFFS BY MOUTH TWICE DAILY as directed 3 Inhaler 3 ??? guaiFENesin (MUCINEX) 600 mg SR tablet Take 1 Tab by mouth 2 times daily. 30 Tab 0 ??? [START ON 02/18/2017] HYDROcodone-acetaminophen (NORCO) 5-325 mg tablet Take 1-2 Tabs by mouth every 6 hours as needed for up to 12 days for Pain. Earliest Fill Date: 02/18/17 Daily Max: 8 Tabs 112 Tab 0 [...] NEEDED for nausea 30 Tab 3 ??? predniSONE (DELTASONE) 10 mg tablet Taper as follows: Take 5 tabs (50 mg) for one more day thencontinue to decrease daily dose by 1 tab (10 mg) every 3 days 35 Tab 0 ??? promethazine (PHENERGAN) 25 mg tablet Take [...] by mouth as needed for migraine. daily maximumdose: 100mg. 9 Tab 1 ??? tamsulosin (FLOMAX) 0.4 mg capsule Take 1 Cap by mouth daily. 90 Cap 3 ??? tiotropium bromide (SPIRIVA RESPIMAT) 1.25 mcg/actuation mist Inhale 2.5 mcg as directed daily.12 g 3 ??? zolpidem (AMBIEN) 5 mg [...] rarely ROS - See HPI Objective: BP 110/75 (BP Cuff Location: Left arm, Patient Position: Sitting, BP Cuff Sizes: Adult, regular) Pulse 72 Temp 36.6 ??C (97.8 ??F) (Tympanic) Resp 18 Wt 89.4 kg (197 lb) LMP 01/11/1987 BMI 33.8 kg/m2 Physical Exam Cooperative, alert Assessment: Plan: iLset was seen today for hospital discharge follow up. Diagnoses and all orders for this visit: Acute respiratory failure with hypoxia Resolved Follow-up per pulmonology Steroid-induced hyperglycemia Continue metformin and blood glucose monitoring Hopefully can taper steroids, consider stop metformin at later date Chronic pain syndrome Stable on current medication Recheck next visit Migraine without status migrainosus, not intractable, unspecified migraine type We discussed options for migraine prevention Currently on pregabalin Beta ricki may be relatively contraindicated due to recent hyperglycemia and possible need to monitor for hypoglycemia on steroid taper Amlodipine may be a good choice for her, will review this at next visit Not currently on magnesium oral riboflavin will review at next visit Stress - AMB CONS/FOLLOW UP COMM[facility]ITY [facility] TEAM Other orders - blood glucose (BLOOD GLUCOSE TEST) test strips; 1 Strip by misc (non-drug; combo route) route 2 times daily. Patient Education Topic: as above Method: Verbal Taught to: Patient Barriers: None Outcomes: Verbalized understanding Recheck as scheduled in February I spent a total of 25 minutes of face to face time with the patient today, and 25 minutes was spentcounseling the patient on the above issues. documented in this encounter Plan of Treatment Upcoming Encounters Date Type Department Care Team (Late st Contact Info) Description 06/29/2024 14:15 EDT Office Visit [facility] [address] [place] [address] Jean Munoz MD [address] [place] [address] Scheduled Referrals Name Type Priority Associated Diagnoses Orde r Schedule AMB CONS/FOLLOW UP COMM[facility]ITY [facility] TEAM Outpatient Referral Routine Stress Ordered: 01/14/2017 documented as of this encounter Visit Diagnoses Diagnosis Acute respiratory failure with hypoxia ([facility])- Primary Acute respiratory failure Steroid-induced hyperglycemia Other abnormal glucose Chronic pain syndrome Migraine without status migrainosus, not intractable, unspecified migraine type Stress Other psychological or physical stress, not elsewhere classified Screening for osteoporosis- Primary Special screening for [...] combo route) route 2 times daily. Reorder 01/04/2017 01/14/2017 documented as of this encounter Care Teams German Professor Relationship Specialty Start Date End Date Jean Munoz MD [address] [place] [address] PCP - General 12/31/08 Manny Rizzo MD [address] [place] [phone] 04/20/10 documented as of this encounter
--- OUTSIDE RECORDS SUMMARY | 2024-06-10 07:21 | XMS_ITS | Encounter Summary ---
Author Organization [facility] Address [address] [place] [address] Care Team Providers Care Edge Stainer Name Role Phone Jean Munoz MD Primary Care Provider Manny Rizzo MD Unavailable Encounter Details Date Type Department Care Team (Late st Contact Info) Description 03/03/2017 12:[address] 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 Pul Social History Tobacco Use Types Packs/Day Years [...] Office Visit [facility] [address] [place] [address] Jean Munoz MD [address] [place] [address] documented as of this encounter Procedures Procedure Name Priority Date/Time Associated Diagnosis Comments ORDERS - SCANNED 03/08/2017 17:34 EDT documented in this encounter Results * ORDERS - SCANNED (03/08/2017 17:34 EDT) 03/08/2017 17:3 4 EDT Scan 2 Milk Route Supervisor ADMISSION ORDERABLE S documented in this encounter Visit Diagnoses Not on filedocumented in this encounter Care Teams Edge Stainer Relationship Specialty Start Date End Date Jean Munoz MD [address] [place] [address] PCP - General 12/31/08 Manny Rizzo MD [address] [place] [phone] 04/20/10 documented as of this encounter
--- OUTSIDE RECORDS SUMMARY | 2024-06-10 07:21 | XMS_ITS | Encounter Summary ---
Author Organization [facility] Address [address] [place] [address] Care Team Providers Care Jacker Name Role Phone Jean Munoz MD Primary Care Provider Manny Rizzo MD Unavailable Reason for Referral * (Routine) - Closed Specialty Diagnoses / Procedures [facility]erred To Contact Diagnoses Chronic obstructive pulmonary disease, unspecified COPD type ([facility]) Procedures SPIROMETRY Chidi Melo MD [address] [place] [phone] Referral ID Status Reason Start Date Expiration Date Visits Re quested Visits Authorized [id number] Closed 02/07/2017 1 1 Encounter Details Date Type Department Care Team (Late st Contact Info) Description 02/02/2017 Orders Only [facility] Pulmonology & Critical Care - [address] [phone] Chidi Melo MD [address] [place] [phone] Chronic obstructive pulmonary disease, unspecified COPD type ([facility] ([facility]) (Primary Dx) Social History Tobacco Use Types [...] Visit [facility] [address] [place] [address] Jean Munoz MD [address] [place] [address] Scheduled Orders Name Type Priority Associated Diagnoses Orde r Schedule SPIROMETRY PFT Routine Chronic obstructive pulmonary disease, unspecified COPD type ([facility]) ([facility]) Expected: 02/07/2017, Expires: 02/02/2018 documented as of this encounter Visit Diagnoses Diagnosis Chronic obstructive pulmonary disease, unspecified COPD type ([facility])- Primary Screening for osteoporosis- Primary Special screening for osteoporosis Primary narcolepsy without cataplexy Chronic pain syndrome Chronic low back pain Lumbago Chronic use of opiate for therapeutic purpose Pain medication agreement Encounter for long-term (current) use of other medications Screen for colon cancer Special screening for malignant neoplasms, colon documented in this encounter Care Teams Jacker Relationship Specialty Start Date End Date Jean Munoz MD [address] [place] [phone] PCP - General 12/31/08 Manny Rizzo MD [address] [place] [phone] 04/20/10 documented as of this encounter
--- OUTSIDE RECORDS SUMMARY | 2024-06-10 07:21 | XMS_ITS | Encounter Summary ---
Author Organization [facility] Address [address] [place] [address] Care Team Providers Care Cotton Dispatcher Name Role Phone Jean uMnoz MD Primary Care Provider Manny Rizzo MD Unavailable Reason for Visit * Reason Comments Other Encounter Details Date Type Department Care Team (Late st Contact Info) Description 01/07/2017 [facility] [address] [place] [address] Jean Munoz MD [address] [place] [phone] Other Social History Tobacco Use Types [...] by mouth as needed for migraine. daily maximum dose: 100mg. 9 Tab 1 01/07/2017 03/05/2017 documented in this encounter Miscellaneous Notes * Telephone Encounter - Jean Munoz MD - 01/07/2017 1015 EDT Script done * Telephone Encounter - Yadira Mccauley RN - 01/07/2017 1001 EDT Medication(s) Requested: imitrex 50 Pharmacy: [email or web address] Last Refill Date: 10/01/16 Last Visit Date: 12/23/16 Next Visit Date: 01/14/2017 Is patient out of medication? Unknown Yadira Mccauley RN 01/07/2017 10:01 documented in this encounter Plan of Treatment Upcoming Encounters Date Type Department Care Team (Late st Contact Info) Description 06/29/2024 14:15 EDT Office Visit [facility] [address] [place] [address] Jean Munoz MD [address] [place] [phone] documented as of this encounter Visit Diagnoses [...] End Da te sumatriptan (IMITREX) 50 mg tabletIndications:Other type of migraine Take 1 tablet by mouth as needed for migraine. Daily maximum dose: 100 mg. Patient averages 12 headaches per month. Reorder 10/01/2016 01/07/2017 documented as of this encounter Care Teams Cotton Dispatcher Relationship Specialty Start Date End Date Jean Munoz MD [address] [place] [phone] PCP - General 12/31/08 Manny Rizzo MD [address] [place] [phone] 04/20/10 documented as of this encounter
--- OUTSIDE RECORDS SUMMARY | 2024-06-10 07:21 | XMS_ITS | Encounter Summary ---
Author Organization [facility] Address [address] [place] [address] Care Team Providers Care Garnetter Name Role Phone Jean Munoz MD Primary Care Provider Manny Rizzo MD Unavailable Reason for Referral * Consult (Routine) - Closed Specialty Diagnoses / Procedures Referred By [facility] t Referred To Contact Pulmonary Disease Diagnoses Panlobular emphysema (HCC-CMS) John Mathis MD [address] [facility], [address] [place] [address] [facility] [address] [place] [address] Referral ID Status Reason Start Date Expiration Date V isits Requested Visits Authorized [id number] Closed Specialty Services Required 03/03/2017 1 1 Question Answer Reason for Request: ? The patient is experiencing chronic, stable pulmonary impairment despite optimal medical management and is experiencing disabling dyspnea associated with a restriction in ordinary activities and has a significantly impaired quality of life. GOLD Stage: Stage I Reason for Visit * Reason Comments Follow-up post hospital discha rge for AECOPD/PNA (elevated procalcitonin, normal BNP) Encounter Details Date Type Department Care Team (Late st Contact Info) Description 03/03/2017 13:30 EDT Office Visit [facility] Pulmonology & Critical Care - [address] [phone] John Mathis MD [address] [place] [phone] Xena Jiménez MD [address] [facility] [address] [place] [address] Chidi Melo MD [address] [place] [phone] Chronic bronchitis, unspecified chronic bronchitis type (CMS-HCC) (HCC-CMS) (Primary Dx); Chronic obstructive pulmonary disease, unspecified COPD type (CMS-HCC) (HCC-CMS); Simple chronic bronchitis (HCC-CMS); Panlobular emphysema (CMS-HCC) ([facility]-CMS); Moderate persistent asthma without complication Social History [...] Sign Reading Time Taken Comments Blood Pressure 118/77 03/03/2017 1239 EDT Pulse 72 03/03/2017 1239 EDT Temperature 36.6 ??C (97.9 ??F) 03/03/2017 1239 EDT Respiratory Rate 16 03/03/2017 1239 EDT Oxygen Saturation 96% 03/03/2017 1239 EDT Inhaled Oxygen Concentration - - Weight 89.1 kg (196 lb 8 oz) 03/03/2017 1239 EDT Height 162.3 cm (5' 3.9) 03/03/2017 1239 EDT Body Mass Index 33.84 03/03/2017 1239 EDT documented in this encounter Functional Status [...] this encounter Patient Instructions * Patient Instructions* Xena Jiménez MD - 03/03/2017 13:30 EDT - Reduce Advair to 230 mcg 1 puff twice daily for a month - If this works then reduce Advair dose to 115 mcg 1 puff twice daily - Consider seeing a thermostat repairer to help achieve healthy weight - We will send you to pulm rehab - See your sleep doctor documented in this encounter Ordered Prescriptions Prescription Sig Dispensed Refills Start Date End Da te fluticasone-salmeterol (ADVAIR HFA) 115-21 mcg/actuation inhaler Inhale 1 Puff as directed 2 times daily. 1 Inhaler 11 03/03/2017 04/05/2018 documented in this encounter Progress Notes * Jailene Martinez - 03/03/2017 1330 EDT I was supervised by Dr. Jiménez who was present and immediately in the office suite. Liset Viera came in today for a finger stick for the Alpha - 1 Antitrypsin Test. One Alpha-1 Antitrypsin sample card was collected and was sent in the mail to [facility]. Patient did well with no issues. Testing was performed and recorded in [facility]. See complete report in scanned documents. Name: Liset Viera Date of : 1960 Date: 03/03/2017 Pulmonary Function Lab 6 MINUTE WALK TEST Indication/Diagnosis: COPD Pre/Resting B/P: 118/77 Pre/Resting HR: 76 Pre/Resting O2 Sat: 96 % Pre/Resting ROBIN: 2 Oxygen Used?: No Oxygen liter/min: none Post/Recovery B/P: 120/82 Post/Recovery HR: 82 Post/Recovery O2 Sat: 96 % Post/Recovery: 2 Maximal ROBIN: 4 Post Oxygen liter/min: none Walked without assistance. Standard finger probe used. TIME HR Sat 02 liter/min COMMENTS 30 sec 91 94 0 LPM 1 min 94 93 0 LPM 1 min/30 sec 94 94 0 LPM 2 min 99 95 0 LPM 2 min/30 sec 97 94 0 LPM 3 min 95 92 0 LPM 3 min/30 sec 97 93 0 LPM 4 min 97 94 0 LPM 4 min/30 sec 98 94 0 LPM 5 min 98 94 0 LPM 5 min/30 sec 100 94 0 LPM 6 min 99 94 0 LPM Distance walked: 1170 feet. Test performed by: Jailene Martinez Date: 03/03/2017 Time: 13:50 Pager/Contact No.: [phone] Provider Interpretation: Normal oxygen saturation on room air at rest. No significant desaturation with exercise. Authenticating provider: Delfina Date: 03/03/2017 Time: 14:06 Pager/Contact No.: [phone] * Xena Jiménez MD - 03/03/2017 1330 EDT Pulmonary Clinic Follow Up Note Date: _03/03/2017 Primary care physician: _ Dr. Jean Munoz [address] [place] [id number] Pulmonary Attending: Dr. Mathis Reason for Consult/Chief Complaint: Post Hospital Discharge f/u for COPD management Dear Dr Jean Munoz, We had the pleasure of seeing Liset Viera in the Pulmonary Clinic at [facility] in follow-up on 03/03/2017. Ms. Viera is a 56 year old female who presents for evaluation of: Chief Complaint Patient presents with ??? Follow-up post hospital discharge for AECOPD/PNA (elevated procalcitonin, normal BNP) Summary: 56 years old female with COPD (brandt lobular emphysema without airflow limitation on spirometry), >40 pack year cigarette smoking history, quit in 2012 comes for post hospital discharge follow up. She was recently hospitalized from December 2016 (12/26-01/04) for acute respiratory failure requiring HFNC oxygen and MICU stay. Her respiratory failure was thought to be from pneumonia (elevated procalcito licha, B/L CXR infiltrates, near normal NT-pro BNP) with concern for diastolic decompensated heart failure. She was eventually weaned to 5 L NC and transferred out of MICU. She was discharged home on room air with prolonged Prednisone taper and no antibiotics (She had already completed a course of Ceftriaxone and Azithromycin). 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 Subjective: Liset Viera feels her symptoms are well controlled on current regimen. She has no new complaints. She continues to struggle to achieve a healthy weight. ROS: Review of system positive for night sweats, snoring, tinnitus, nasal congestion, headaches, environmental allergies, seasonal allergies, depression, difficulty sleeping, nausea, abdominal pain, muscle aches, back pain, occasional right ankle swelling from sprain injury, cough, exertional dyspnea, wheezing. 10 point review if systems were negative except the above mentioned findings. Allergies: Toradol [ketorolac tromethamine] and Motrin [ibuprofen] Active problem list: Patient Active Problem List Diagnosis ??? Severe [...] right hand ??? Nausea ??? Steroid-induced hyperglycemia Medications: Baclofen as needed Ciclesonide nasal spray Cyclosporine eye drops Docusate as needed Doxycycline for chronic rosacea supression Jesusita Advair Guaifenasin [place] Artificial tears Duonebs PRN Xopenex PRN Metformin Ritalin Singulair Prilosec Zofran Lyrica Promethazine PRN Roflumilast Zoloft Ropinirole Sumatriptan Tamsulosin Spiriva Ambien PRN Past medical history: Past Medical History: Diagnosis Date ??? Abdominal [...] ??? UTI 11/20/99 ??? Vaginitis 03/03/00 Social history: Reports that she quit smoking about 4 years ago in 2012. She used to smoke about 1-2 packs of cigarettes per day from 1975 to 2012. Family history: The patient has a family history of Problem Relation Name Comments Asthma Mother Latasha Asthma Brother Valente Cancer Father esophageal Cancer Paternal Aunt breast Cancer Paternal Grandmother leukemia Cancer Mother Latasha lung and bone Cataract Father Cataract Maternal Grandmother Cataract Mother Latasha Cataract Maternal Grandfather Depression Father Depression Maternal Aunt Depression Maternal Grandfather Depression Brother Valente Depression Brother Justus Eczema Mother Latasha Eczema Brother Valente Heart Attack Father Heart Attack Maternal Grandmother Heart Disease Maternal Grandmother Migraines Maternal Aunt Stroke Maternal Grandmother Blindness Neg Hx Glaucoma Neg Hx Macular Degeneration Neg Hx Examination Blood pressure 118/77, pulse 72, temperature 36.6 ??C (97.9 ??F), temperature source Tympanic, resp. rate 16, height 162.3 cm (63.9), weight 89.1 kg (196 lb 8 oz.), last menstrual period 01/11/1987,SpO2 96 %. System sharp exam: Gen: Alert oriented, not in any acute distress Head: Normocephalic atraumatic Ear: No obvious discharge Eyes: Pupils reactive to light Throat: No thrush, poor dentition, Cardiovascular: No jugular venous distention, S1 S2 heard, no murmurs/rubs/gallops Extremities: warm, No edema, 2+ dorsalis pedal pulses Respiratory: Inspection: No clubbing, no use of accessory muscles of respiration Palpation: Symmetric expansion of chest wall on both sides, tactile vocal fremitus equal Percussion: Deferred Auscultation: No adventitious breath sounds appreciated Per abdomen: soft, non-tender, normoactive bowel sounds heard Musculoskeletal: No focal motor weakness grossly noted Skin: No pallor, no rash Neuro: Moving all four extremities spontaneously. No proximal muscle weakness. No gross sensory deficits noted Psychiatric: Mood congruent with affect Lymph: No cervical lymphadenopathy Imaging: Chest CT 01.13.2017: Impression: 1. LungRADS category 1 (Negative) Findings: No nodules or definitely benign nodules (calcified granulomas). 2. LungRADS category S: Negative, no new or potentially significant incidental findings requiring urgent additional evaluation. 3. Incidental findings as above. ECHO 12.28.16: Summary: 1. Left ventricle: The cavity size [...] increased, in the range of 35mm Hg. Pulmonary Function Tests: Date FVC % pred FEV1 % pred FEV1/FVC DLCOunc% pred RV/TLC 9.26.12 2.03 1.45 10.3.12 2.37 1.86 65 46 1.16.13 1.98 1.53 67 10.9.13 1.86 1.4 12.13.13 2.23 1.69 6.25.14 2.17 1.75 6.21.17 1.98 1.49 75 Interpretation: SPIROMETRY Spirometry consistent with restriction, muscle weakness or suboptimal effort, but normal airflow. No significant change compared to prior studies. Assessment and Plan: Ms. Viera is a 56 year old female who presents for evaluation of: Chief Complaint Patient presents with ??? Follow-up post hospital discharge for AECOPD/PNA (elevated procalcitonin, normal BNP) 1. COPD: Her symptoms are well controlled on the Roflumilast. She has not had any exacerbations until recenthospitalization in 12/2016. Her respiratory failure in December 2016 seems to have been from pneumonia.She has been using her rescue Xopenex inhaler only about 2-3 times a week. She required her Duonebsonly once last week. There is a theoretical increased risk of pneumonia with high dose steroid inhaler. Thus we will slowly cut back on her Advair inhaler dose. There is no indication for Singulair in COPD therapy. - Reduce Advair to 230 mcg 1 puff BID for a month, if symptoms well controlled then drop to 115 mcg1 puff twice daily - Pulmonary rehab referral - Stop Singulair 2. Panlobular emphysema: Alpha one antitrypsin testing genotyping sent from clinic 3. Obesity Would recommend a nutrition consult. This with regular exercise may help her achieve a healthy weight which would significantly help her breathing. Her lung functions are suggestive of restrictive pattern on spirometry with normal lung volumes in past and elevated RV/TLC ratio of 46% is due to her body habitus and obesity. 4. Health maintenance: Up to date with Influenza and both Pneumonia shots Continues to get annual low dose lung cancer screening Chest CT with her primary care doctor Other Orders Placed This Visit Procedures ??? Amb Consult/Follow Up Pulmonary Rehab Thank you for the opportunity of participating in the care of this patient. We will continue to follow with you. Please feel free to contact us with any further questions. Patient discussed with Dr Delfina Jiménez MD Pulmonary and Critical Care Fellow [facility] [email or web address] Attestation statement: I saw and examined the patient with the resident/fellow. I agree with the findings and plan of care documented in the resident's/fellow's note. John Mathis MD documented in this encounter Plan of Treatment Upcoming Encounters Date Type Department Care Team (Late st Contact Info) Description 06/29/2024 14:15 EDT Office Visit [facility] [address] [place], [place] [id number] Jean Munoz MD [address] [place] [address] Scheduled Referrals Name Type Priority Associated Diagnoses Orde r Schedule AMB CONS/FOLLOW UP PULMONARY REHAB Outpatient Referral Routine Panlobular emphysema (CMS-HCC) (HCC-CMS) Ordered: 03/03/2017 documented as of this encounter Procedures Procedure Name Priority Date/Time Associated Diagnosis Comments PULMONARY FUNCTION REPORT - SCANNED 03/05/2017 7:03 EDT PULMONARY FUNCTION REPORT - SCANNED 03/03/2017 13:01 EDT documented in this encounter Results * PULMONARY FUNCTION REPORT - SCANNED (03/05/2017 7:03 EDT) 03/05/2017 7:03 EDT Scan 2 Accounting Consultant PROCEDURE/MINOR GURU GICAL ORDERABLES * PULMONARY FUNCTION REPORT - SCANNED (03/03/2017 13:01 EDT) 03/03/2017 13:0 1 EDT Scan 2 Accounting Consultant PROCEDURE/MINOR GURU GICAL ORDERABLES documented in this encounter Visit Diagnoses Diagnosis Chronic bronchitis, unspecified chronic bronchitis type ([facility]-CMS)- Primary Chronic obstructive pulmonary disease, unspecified COPD type ([facility]) Simple chronic bronchitis ([facility]-CMS) Simple chronic bronchitis Panlobular emphysema ([facility]-CMS) Other emphysema Moderate persistent asthma without complication Unspecified asthma [...] Discontinue Reason Start Date End Da te predniSONE (DELTASONE) 10 mg tablet Taper as follows: Take 5 tabs (50 mg) for one more day then continue to decrease daily dose by 1 tab (10 mg) every 3 days Therapy completed 01/04/2017 03/03/2017 fluticasone-salmeterol (ADVAIR HFA) 230-21 mcg/actuation inhalerIndications:Moder ate persistent asthma without complication INHALE TWO PUFFS BY MOUTH TWICE DAILY as directed 04/13/2016 03/03/2017 documented as of this encounter Orders PFT Count Last Ordered Date First Orde red Date SIMPLE STRESS TEST (6 MIN WALK W/O EKG) 1 0 03/03/2017 SPIROMETRY 1 03/03/2017 documented in this encounter Care Teams Garnetter Relationship Specialty Start Date End Date Jean Munoz MD [address] [place] [phone] PCP - General 12/31/08 Manny Rizzo MD [address] [place] [address] 04/20/10 documented as of this encounter
--- OUTSIDE RECORDS SUMMARY | 2024-06-10 07:21 | XMS_ITS | Encounter Summary ---
Author Organization [facility] Address [address] [place] [address] Care Team Providers Care Nanny Babysitter Name Role Phone Jean Munoz MD Primary Care Provider Manny Rizzo MD Unavailable Reason for Visit * Reason Onset Date Comments Medications Refill 01/12/2017 Encounter Details Date Type Department Care Team (Late st Contact Info) Description 01/12/2017 Telephone [facility] Sleep Program - [address] [id number] Tiana Bacon [address] [place] [address] Medications Refill Social History Tobacco [...] in the afternoon for narcolepsy. 30 Tab 01/12/2017 02/09/2017 methylphenidate (RITALIN;METHYLIN) 20 mg tablet Take 2 tabs by mouth in the morning. 60 Tab 01/12/2017 02/09/2017 documented in this encounter Miscellaneous Notes * Telephone Encounter - Corrina Ac RN - 01/12/2017 1115 EDT Spoke with patient and let her know her (ritalin) prescription(s) ready for bean picker at the Sleep Program. * Telephone Encounter - Barbara Gimenez - 01/12/2017 1015 EDT Medication Refill Medication(s) Requested: Ritalin 20mg & Ritalin 10mg Pharmacy (reconcile pharmacy list): [facility] Last Visit Date: 02.03.17 Next Visit Date: 01/27/2017 Is patient out of medication? NO Picking up/mailing (location)/calling in/eprescribe? PT to bean picker 30 day supply/90 day supply? 30 Barbara Gimenez 01/12/201710:15 documented in this encounter Plan of Treatment Upcoming Encounters Date Type Department Care Team (Late st Contact Info) Description 06/29/2024 14:15 EDT Office Visit [facility] [address] [place], [place] [phone] Jean Munoz MD [address] [place] [address] documented as of this encounter Visit Diagnoses Not on filedocumented in this encounter Discontinued Medications Medication Sig Discontinue Reason Start Date End Da te methylphenidate (RITALIN;METHYLIN) 20 mg tablet Take 2 tabs by mouth in the morning. Earliest Fill Date: 12/17/16 Reorder 12/17/2016 01/12/2017 methylphenidate (RITALIN;METHYLIN) 10 mg tablet Take one tab in the afternoon for narcolepsy. Earliest Fill Date: 12/17/16 Reorder 12/17/2016 01/12/2017 documented as of this encounter Care Teams Nanny Babysitter Relationship Specialty Start Date End Date Jean Munoz MD [address] [place] [address] PCP - General 12/31/08 Manny Rizzo MD [address] [place] [address] 04/20/10 documented as of this encounter
--- OUTSIDE RECORDS SUMMARY | 2024-06-10 07:21 | XMS_ITS | Encounter Summary ---
Author Organization [facility] Address [address] [place] [address] Care Team Providers Care Utility Lineman Name Role Phone Jean Munoz MD Primary Care Provider Manny Rizzo MD Unavailable Reason for Referral * (Routine/Next Available) - Closed Specialty Diagnoses / Procedures [facility] Referred To Contact Diagnoses Primary narcolepsy without cataplexy Procedures SPLIT NIGHT POLYSOMNOGRAM (DIAGNOSTIC POLYSOMNOGRAM WITH SPLIT TO CPAP/BIPAP TITRATION) [place] [address] [place] [address] Referral ID Status Reason Start Date Expiration Date Visits Re quested Visits Authorized [id number] Closed 01/27/2017 1 1 Reason for Visit * Reason Comments Follow-up Encounter Details Date Type Department Care Team (Late st Contact Info) Description 01/27/2017 14:40 EDT Office Visit [facility] Sleep Program - [address] [place] [address] Primary narcolepsy without cataplexy (Primary Dx) Social History Tobacco Use Types [...] Sign Reading Time Taken Comments Blood Pressure 102/74 01/27/2017 1438 EDT Pulse 101 01/27/2017 1438 EDT Temperature - - Respiratory Rate 16 01/27/2017 1438 EDT Oxygen Saturation 99% 01/27/2017 1438 EDT Inhaled Oxygen Concentration - - Weight 88 kg (194 lb) 01/27/2017 1438 EDT Height 162.6 cm (5' 4.02) 01/27/2017 1438 EDT Body Mass Index 33.28 01/27/2017 1438 EDT documented in this encounter Functional Status [...] Progress Notes * Tiana Bacon MD - 01/27/2017 1440 EDT Name: Liset Viera : 1960 Date of Visit: 01/27/2017 HPI: Liset Viera is a 56 year old W with a history of narcolepsy without cataplexy who presents for follow up. She continues to take methylphenidate 40 mg QAM with 10 mg in the afternoon. No palpitation or chest pain noted. She naps 1-2 hours a day 3-4 days a week. Typically happens with sedentary activities. She was admitted to the ICU at [facility], in December for acute hypoxic respiratory failure in the settingof COPD and pneumonia during which time she was on BPAP and supplemental O2. She is not currently using O2. She admits to headaches, worse on awakening. Uses zolpidem 1-2 times a week. Outpatient Prescriptions Marked as Taking for the 01/27/17 encounter (Office Visit) with Tiana Bacon MD Medication Sig Dispense Refill ??? baclofen (LIORESAL) 10 mg tablet Take 1 Tab by mouth 3 times daily as needed (mucles tightness). 180 Tab 3 ??? blood glucose (BLOOD GLUCOSE TEST) test strips 1 Strip by misc (non-drug; combo route) route 2 times daily. 100 Each 1 ??? Ciclesonide 50 mcg spray,non-aerosol 100 mcg by nasal route daily. 37.5 g 1 ??? docusate sodium (COLACE) [...] pertinent positives in the HPI. EXAM: Vitals: 01/27/17 1438 BP: 102/74 BP Cuff Location: Left arm Patient Position: Sitting BP Cuff Sizes: Adult, large Pulse: 101 Resp: 16 SpO2: 99% Weight: 88 kg (194 lb) Height: 162.6 cm (64.02) A/P: Narcolepsy without cataplexy, treated on methylphenidate Still some residual sleepiness when sedentary. Also complains of headaches, typically in the AM, after waking. In the setting of COPD, there is a concern that she may be experiencing KATJA/ hypoxia/ hypercarbia, contributing to headaches and sleepiness. Will obtain split night study with follow up pending results. I spent a total of 20 minutes in face to face time with this patient and > 50 percent of that time was spent in counseling and coordination of care as described in the progress note. Tiana Bacon MD 01/27/2017 14:52 documented in this encounter Plan of Treatment Upcoming Encounters Date Type Department Care Team (Late st Contact Info) Description 06/29/2024 14:15 EDT Office Visit [facility] [address] [place] [address] Jean Munoz MD [address] [place] [phone] Scheduled Orders Name Type Priority Associated Diagnoses Orde r Schedule SPLIT NIGHT POLYSOMNOGRAM (DIAGNOSTIC POLYSOMNOGRAM WITH SPLIT TO CPAP/BIPAP TITRATION) Sleep Center Routine Primary narcolepsy without cataplexy Ordered: 01/27/2017 documented as of this encounter Visit Diagnoses [...] colon documented in this encounter Care Teams Utility Lineman Relationship Specialty Start Date End Date Jean Munoz MD [address] [place] [address] PCP - General 12/31/08 Manny Rizzo MD [address] [place] [phone] 04/20/10 documented as of this encounter
--- OUTSIDE RECORDS SUMMARY | 2024-06-10 07:21 | XMS_ITS | Encounter Summary ---
Author Organization [facility] Address [address] [place] [address] Care Team Providers Care Home Care Nurse Name Role Phone Jean Munoz MD Primary Care Provider Manny Rizzo MD Unavailable Encounter Details Date Type Department Care Team (Latest Contact Info) Description 01/13/2017 14:34 EDT - 01/13/2017 23:59 EDT Hospital Encounter [facility] [address] [place] [address] Jean Munoz MD [address] [place] [address] Discharge Disposition: Auto Discharge Social History Tobacco [...] as of this encounter Discharge Diagnoses Diagnosis Z12.2 Encounter for screening for malignant neoplasm of respiratory organs-Z12.2[ICD-10-CM] F17.210 Nicotine dependence, cigarettes, uncomplicated-F17.210[ICD-10-CM] documented in this encounter Medications at Time of Discharge Medication Sig Dispensed Refills Start Date End Date docusate sodium (COLACE) 100 mg capsule Take 1 Capsule by mouth 2 times daily as needed for Constipation. 09/24/2010 baclofen (LIORESAL) 10 mg tabletIndications:Chron ic pain syndrome Take 1 Tab by mouth 3 times daily as needed (mucles tightness). 180 Tab 3 04/13/2016 06/01/2017 blood glucose (BLOOD GLUCOSE TEST) test strips 1 Strip by misc (non-drug; combo route) route 2 times daily. 100 Each 01/04/2017 01/14/2017 Ciclesonide 50 mcg spray,non-aerosolIndica tions:Seasonal allergic rhinitis 100 mcg by nasal route daily. 37.5 g 1 05/08/2016 06/01/2017 cycloSPORINE (RESTASIS) 0.05 % ophthalmic emulsion Place 1 Drop into both eyes 2 times daily 10/25/2014 11/11/2018 doxycycline (VIBRAMYCIN) 100 mg capsuleIndications:Elaine cea TAKE ONE CAPSULE BY MOUTH ONE TIME DAILY 90 Cap 3 04/13/2016 04/14/2017 fexofenadine (JUDITH) 180 mg tabletIndications:Seaso nal allergic rhinitis Take 1 Tab by mouth daily. 90 Tab 3 04/13/2016 04/15/2017 fluticasone-salmeterol (ADVAIR HFA) 230-21 mcg/actuation inhalerIndications:Mode rate persistent asthma without complication INHALE TWO PUFFS BY MOUTH TWICE DAILY as directed 3 Inhaler 3 04/13/2016 03/03/2017 guaiFENesin (MUCINEX) 600 mg SR tablet Take 1 Tab by mouth 2 times daily. 30 Tab 01/04/2017 06/01/2017 HYDROcodone-acetaminoph en (NORCO) 5-325 mg tabletIndications:Chron ic pain syndrome Take 1-2 Tabs by mouth every 6 hours as needed for up to 12 days for Pain. Earliest Fill Date: 02/18/17 Daily Max: 8 Tabs 112 Tab 02/18/2017 03/04/2017 hydroxypropyl methylcellulose (ISOPTO TEARS) 0.5 % ophthalmic solution Place 1 Drop into both eyes 5 times daily. 12/10/2010 10/06/2023 ipratropium-albuterol (DUONEB) 0.5 mg-3 mg(2.5 mg base)/3 mL nebulizer solutionIndications:Mod erate persistent asthma without complication Take 3 mL by nebulization every 4 hours as needed for Wheezing. 3 mL 3 04/13/2016 06/01/2017 levalbuterol (XOPENEX HFA) 45 mcg/actuation inhalerIndications:Mode rate persistent asthma without complication INHALE TWO PUFFS BY MOUTH EVERY SIX HOURS NEEDED 3 Inhaler 3 04/13/2016 05/22/2017 LYRICA 300 mg capsuleIndications:Vice Chancellor majo low back pain, unspecified back pain laterality, with sciatica presence unspecified TAKE ONE CAPSULE BY MOUTH TWICE DAILY. daily max: 2 caps (600mg) 60 Cap 4 11/16/2016 04/15/2017 metFORMIN (GLUCOPHAGE) 500 mg tablet Take 1 Tab by mouth 2 times daily. While on steroid taper 60 Tab 01/04/2017 06/01/2017 methylphenidate (RITALIN;METHYLIN) 20 mg tablet Take 2 tabs by mouth in the morning. 60 Tab 01/12/2017 02/09/2017 methylphenidate (RITALIN;METHYLIN) 10 mg tablet Take one tab in the afternoon for narcolepsy. 30 Tab 01/12/2017 02/09/2017 montelukast (SINGULAIR) 10 mg tabletIndications:Moder ate persistent asthma without complication Take 1 Tab by mouth daily. 90 Tab 3 04/13/2016 05/22/2017 omeprazole (PRILOSEC) 40 mg capsuleIndications:Benja roesophageal reflux disease, esophagitis presence not specified Take 1 Cap by mouth daily. 90 Cap 3 04/13/2016 06/01/2017 ondansetron (ZOFRAN) 4 mg tabletIndications:Nause a TAKE ONE TABLET BY MOUTH DAILY NEEDED for nausea 30 Tab 3 04/13/2016 06/01/2017 predniSONE (DELTASONE) 10 mg tablet Taper as follows: Take 5 tabs (50 mg) for one more day then continue to decrease daily dose by 1 tab (10 mg) every 3 days 35 Tab 01/04/2017 03/03/2017 promethazine (PHENERGAN) 25 mg tabletIndications:Nause a and vomiting, intractability of vomiting not specified, unspecified vomiting type Take 1 Tab by mouth every 6 hours as needed for Nausea. 20 Tab 1 12/23/2016 06/01/2017 roflumilast (DALIRESP) 500 mcg tabletIndications:Chron ic obstructive pulmonary disease, unspecified COPD type (HCC-CMS) Take 1 Tab by mouth daily. 90 Tab 3 04/13/2016 04/14/2017 rOPINIRole (REQUIP) 2 mg tabletIndications:Restl ess legs syndrome Take 1 Tab by mouth at bedtime. TAKE ONE TABLET BY MOUTH AT BEDTIME 90 Tab 3 04/13/2016 05/22/2017 sertraline (ZOLOFT) 100 mg tabletIndications:Major depressive disorder, recurrent, severe without psychotic features ([facility]-CMS) Take 2 Tabs by mouth daily. 180 Tab 3 04/13/2016 05/22/2017 sumatriptan (IMITREX) 50 mg tabletIndications:Migra ine without status migrainosus, not intractable, unspecified migraine type take 1 tablet by mouth as needed for migraine. daily maximum dose: 100mg. 9 Tab 1 01/07/2017 03/05/2017 tamsulosin (FLOMAX) 0.4 mg capsuleIndications:Hesi tancy Take 1 Cap by mouth daily. 90 Cap 3 04/13/2016 06/01/2017 tiotropium bromide (SPIRIVA RESPIMAT) 1.25 mcg/actuation mistIndications:Chronic obstructive pulmonary disease, unspecified COPD type (HCC-CMS) Inhale 2.5 mcg as directed daily. 12 g 3 04/13/2016 03/04/2017 zolpidem (AMBIEN) 5 mg tabletIndications:Insom yesi, unspecified type Take 1 Tab by mouth at bedtime as needed for Sleep. Daily Max: 5 mg 28 Tab 5 10/01/2016 03/04/2017 documented as of this encounter Discharge Disposition Disposition Code Departure Means Destination Auto Discharge Home documented in this encounter Plan of Treatment Upcoming Encounters Date Type Department Care Team (Late st Contact Info) Description 06/29/2024 14:15 EDT Office Visit [facility] [address] [place] [address] Jean Munoz MD [address] [place] [address] documented as of this encounter Visit Diagnoses Not on filedocumented in this encounter Care Teams Home Care Nurse Relationship Specialty Start Date End Date Jean Munoz MD [address] [place] [address] PCP - General 12/31/08 Manny Rizzo MD [address] [place] [phone] 04/20/10 documented as of this encounter
--- OUTSIDE RECORDS SUMMARY | 2024-06-10 07:21 | XMS_ITS | Encounter Summary ---
Author Organization [facility] Address [address] [place] [address] Care Team Providers Care Friction Paint Machine Tender Name Role Phone Jean Munoz MD Primary Care Provider Manny Rizzo MD Unavailable Reason for Visit * Reason Onset Date Comments Appointment Related 02/17/2017 6.7 cx Encounter Details Date Type Department Care Team (Late st Contact Info) Description 02/17/2017 Telephone [facility] Pulmonology & Critical Care - [facility] [address] [place] [address] Xena Jiménez MD [address] [facility] [address] [place] [phone] Appointment Related (6.7 cx ) Social History Tobacco Use Types Packs/Day [...] encounter Miscellaneous Notes * Telephone Encounter - Telma Bosch - 02/17/2017 1411 EDT Appointments rescheduled to 03/03/17 starting at 12:30, patient confirmed. * Telephone Encounter - Timothy Dumont - 02/17/2017 1316 EDT Patient calling to reschedule appointments as she is not able to make it in today. 02/17 2:30 and 3:15 . Please call back to reschedule documented in this encounter Plan of Treatment Upcoming Encounters Date Type Department Care Team (Late st Contact Info) Description 06/29/2024 14:15 EDT [facility] [address] [place] [address] Jean Munoz MD [address] [place] [address] documented as of this encounter Visit Diagnoses Not on filedocumented in this encounter Care Teams Friction Paint Machine Tender Relationship Specialty Start Date End Date Jean Munoz MD [address] [place] [phone] PCP - General 12/31/08 Manny Rizzo MD [address] [place] [phone] 04/20/10 documented as of this encounter
--- OUTSIDE RECORDS SUMMARY | 2024-06-10 07:21 | XMS_ITS | Encounter Summary ---
Author Organization [facility] Address [address] [place] [address] Care Team Providers Care Supervisor [employer] Name Role Phone Jean Munoz MD Primary Care Provider Manny Rizzo MD Unavailable Afia Valle MD Unavailable [phone] Jesi Leong CUT OFF MACHINE HELPER Unavailable [phone] SaloJesi shanks CUT OFF MACHINE HELPER Unavailable Reason for Visit * Reason Comments Other Encounter Details Date Type Department Care Team (Late st Contact Info) Description 03/05/2017 Refill [facility] Family Medicine [facility] [address] [place], [place] [phone] Jean Munoz MD [address] [place] [address] Other Social History Tobacco Use [...] maximum dose 2 tablets 9 Tab 2 03/09/2017 05/19/2017 documented in this encounter Miscellaneous Notes * Telephone Encounter - Jean Munoz MD - 03/09/2017 1640 EDT escript done, please notify patient, thanks * Telephone Encounter - Yadira Mccauley RN - 03/08/2017 0854 EDT Medication(s) Requested: imitrex 50 [facility]acy: [facility] Last Refill Date: 01/07/17 Last Visit Date: 03/04/17 Next Visit Date: 03/30/2017 Is patient out of medication? Unknown Yadira Mccauley RN 03/08/2017 8:54 documented in this encounter Plan of Treatment Upcoming Encounters Date Type Department Care Team (Late st Contact Info) Description 06/29/2024 14:15 EDT Office Visit [facility] Medicine [facility] [address] [place] [address] Jean Munoz MD [address] [place] [address] documented as of this encounter [...] needed for migraine. daily maximum dose: 100mg. Reorder 01/07/2017 03/05/2017 documented as of this encounter Additional Health Concerns Infection Onset Date Last Indicated Resolved Time R/O COVID-19 05/15/2022 05/15/2022 05/20/2022 22:1 6 EDT R/O COVID-19 11/14/2022 11/14/2022 11/14/2022 19:1 6 EST documented as of this encounter Care Teams Supervisor [employer] Relationship Specialty Start Date End Date Jean Munoz MD [address] [place] [address] PCP - General 12/31/08 Manny Rizzo MD [address] [place] [phone] 04/20/10 Afia Valle MD [address] [place] [address] [address] [place] [phone] MD Care Team Radiation Oncology 07/02/21 Jesi Leong CUT OFF MACHINE HELPER [address] [place] [address] Photographic Equipment Inspector 12/24/21 09/20/22 Jesi Leong CUT OFF MACHINE HELPER [address] [place] [address] Behavioral Health Photographic Equipment InspectorDirector Sanitation Bureau Care 10/19/22 01/23/24 documented as of this encounter
--- OUTSIDE RECORDS SUMMARY | 2024-06-10 07:22 | XMS_ITS | Encounter Summary ---
Author Organization [facility] Address [address] [place] [address] Care Team Providers Care Assignment Manager Name Role Phone Jean Munoz MD Primary Care Provider Manny Rizzo MD Unavailable Reason for Visit * Reason Onset Date Comments Prior Auth, Medication 11/27/2016 Spiriva R espimat inhaler Encounter Details Date Type Department Care Team (Late st Contact Info) Description 11/27/[address] [phone] Kaitlyn Montero LPN [address] [place] [address] Prior Auth, Medication (Spiriva Respimat inhaler ) Social History Tobacco Use Types [...] you have serious difficulty h earing? No 02/15/2014 Are you blind or do you have serious difficulty seeing, even when wearing glasses? No 02/15/2014 Do you have difficulty dress ing or bathing? (5 years old or older) No 02/15/2014 Because of a physical, menta l, or emotional condition, do you have difficulty doing errands alone such as visiting a doctor's office or shopping? (15 years old or older) No 02/15/2014 Cognitive Status Response Date of Assessm ent Because of a physical, menta l, or emotional condition, do you have serious difficulty concentrating, remembering, or making decisions? (5 years old or older) Yes 02/15/2014 documented as of this encounter Miscellaneous Notes * Telephone Encounter - Kaitlyn Montero LPN - 11/30/2016 0925 EDT Medication: Montelukast 10 mg Insurance Co: [place] Medicaid Approval # (if applicable): [id number] Approval dates: 11/27/2016-11/28/2017 [facility] pharmacy and patient and notified them of PA approval. * Telephone Encounter - Kaitlyn Montero LPN - 11/27/2016 1537 EDT Medication: Spiriva AER 1.25mcg Insurance Co: [place] Medicaid Approval # (if applicable): [id number] Approval dates: 11/26/2016-11/26/2017 Name of Pharmacy notified: [facility] Notified Pharmacy and patient about prior auth approval. * Telephone Encounter - Kaitlyn Montero LPN - 11/27/2016 1034 EDT PA sent to insurance for Montelukast sodium 10 mg. Waiting for response. * Telephone Encounter - Kaitlyn Montero LPN - 11/27/2016 0950 EDT PA sent to insurance for Spiriva Respimat inhaler. Waiting for response. documented in this encounter Plan of Treatment Upcoming Encounters Date Type Department Care Team (Late st Contact Info) Description 06/29/2024 14:15 EDT Office Visit [facility] [address] [place] [address] Jean Munoz MD [address] [place] [address] documented as of this encounter Visit Diagnoses Not on filedocumented in this encounter Care Teams Assignment Manager Relationship Specialty Start Date End Date Jean Munoz MD [address] [place] [phone] PCP - General 12/31/08 Manny Rizzo MD [address] [place] [address] 04/20/10 documented as of this encounter
--- OUTSIDE RECORDS SUMMARY | 2024-06-10 07:22 | XMS_ITS | Encounter Summary ---
Author Organization [facility] Address [address] [place] [address] Care Team Providers Care Host Coordinator Name Role Phone Jean Munoz MD Primary Care Provider Manny Rizzo MD Unavailable Reason for Visit * Reason Onset Date Comments Medications Refill 07/01/2016 Encounter Details Date Type Department Care Team (Late st Contact Info) Description 07/01/2016 Telephone [facility] - [address] [phone] Tiana Bacon [address] [place] [address] Medications Refill Social History Tobacco [...] Yes 02/15/2014 documented as of this encounter Ordered Prescriptions Prescription Sig Dispensed Refills Start Date End Da te methylphenidate (RITALIN;METHYLIN) 10 mg tablet Take one tab in the afternoon for narcolepsy. Earliest Fill Date: 07/02/16 30 Tab 07/02/2016 07/27/2016 methylphenidate (RITALIN;METHYLIN) 20 mg tablet Take 2 tabs by mouth in the morning. Earliest Fill Date: 07/02/16 60 Tab 07/02/2016 07/27/2016 documented in this encounter Miscellaneous Notes * Telephone Encounter - Corrina Ac RN - 07/01/2016 1533 EDT Spoke with patient and let her know her (ritalin) prescriptions ready for picker/puller at the Sleep Program. * Telephone Encounter - Barbara Gimenez - 07/01/2016 0803 EDT Medication Refill Medication(s) Requested: Ritalin 20mg / Ritalin 10mg Pharmacy (reconcile pharmacy list): [facility] Last Visit Date: 02/04/16 Next Visit Date: Visit date not found Is patient out of medication? No Picking up/mailing (location)/calling in/eprescribe? PT picking up 30 day supply/90 day supply? 30 Barbara Gimenez 07/01/20168:03 documented in this encounter Plan of Treatment Upcoming Encounters Date Type Department Care Team (Late st Contact Info) Description 06/29/2024 14:15 EDT Office Visit [facility] [address] [place], [place] [phone] Jean Munoz MD [address] [place] [phone] documented as of this encounter Visit Diagnoses Not on filedocumented in this encounter Discontinued Medications Medication Sig Discontinue Reason Start Date End Da te methylphenidate (RITALIN;METHYLIN) 20 mg tablet Take 2 tabs by mouth in the morning. Earliest Fill Date: 06/04/16 Reorder 06/04/2016 07/01/2016 methylphenidate (RITALIN;METHYLIN) 10 mg tablet Take one tab in the afternoon for narcolepsy. Earliest Fill Date: 06/04/16 Reorder 06/04/2016 07/01/2016 documented as of this encounter Care Teams Host Coordinator Relationship Specialty Start Date End Date Jean Munoz MD [address] [place] [phone] PCP - General 12/31/08 Manny Rizzo MD [facility] [place] [address] 04/20/10 documented as of this encounter
--- OUTSIDE RECORDS SUMMARY | 2024-06-10 07:22 | XMS_ITS | Encounter Summary ---
Author Organization [facility] Address [address] [place] [address] Care Team Providers Care Special Education Case Manager Name Role Phone Jean Munoz MD Primary Care Provider Manny Rizzo MD Unavailable Encounter Details Date Type Department Care Team (Late st Contact Info) Description 07/01/2016 Phlebotomy Only [facility] [address] [place] [address] Manager Of Radiology, Outpatient Screening for HIV (human immunodeficiency virus); Tobacco dependence in remission; Impaired glucose tolerance; Fatty liver Social History Tobacco Use Types [...] Yes 02/15/2014 documented as of this encounter Plan of Treatment Upcoming Encounters Date Type Department Care Team (Late st Contact Info) Description 06/29/2024 14:15 EDT Office Visit [facility] [address] [place] [address] Jean Munoz MD [address] [place] [address] documented as of this encounter Procedures Procedure Name Priority Date/Time Associated Diagnosis Comments HIV 1/2 ANTIGEN AND ANTIBODY, 4TH GENERATION Routine 07/01/2016 14:54 EDT Screening for HIV (human immunodeficiency virus) HEMOGLOBIN A1C Routine 07/01/2016 14:54 EDT Impaired glucose tolerance LIPID PROFILE (INCLUDES CHOLESTEROL, TRIGLYCERIDES, HDL, LDL) Routine 07/01/2016 14:54 EDT Tobacco dependence in remission COMPREHENSIVE METABOLIC PANEL (CMP) Routine 07/01/2016 14:54 EDT Fatty liver documented in this encounter Results * COMPREHENSIVE METABOLIC PANEL (CMP) (07/01/2016 14:54 EDT) Potassium 4.2 3.5 - 5.0 mEq/L 07/01/2016 18:28 EDT [facility] Sodium 144 136 - 145 mEq/L 07/01/2016 18:28 EDT [facility] Chloride 108 96 - 110 mEq/L 07/01/2016 18:28 EDT [facility] CO2 24 22 - 32 mEq/L 07/01/2016 18:28 EDT [facility] Comment:Note new reference r dana 06/30/16 Total Alkaline Phosphatase 110 38 - 126 U/L 07/01/2016 18:28 [facility] Bilirubin, Total <0.5 <1.4 mg/dl 07/01/20 16 18:28 [facility] AST 15 15 - 46 U/L 07/01/2016 18:28 [facility] ALT 20 <53 U/L 07/01/2016 18:28 [facility] Albumin 4.4 3.4 - 4.9 g/dl 07/01/2016 18:28 [facility] Total Protein 7.7 6.3 - 8.2 g/dl 07/01/2016 18:28 [facility] Creatinine 0.73 0.52 - 1.04 mg/dl 07/01/2016 18:28 [facility] GFR, Calculated 92 >60 ml/min/1.7 3m2 07/01/2016 18:28 [facility] Comment: eGFR calculated using CKD-EPI equation for non Americans. Multiply eGFR by 1.16 for Americans. BUN 17 10 - 26 mg/dl 07/01/2016 18:28 [facility] Calcium 9.6 8.5 - 10.5 mg/dl 07/01/2016 18:28 [facility] Calculated Calcium 9.3 8.5 - 10.5 mg/dl 07/01/2016 18:28 [facility] Comment: Note new formula for calculation in use 06/17/2016 Glucose, Serum 87 70 - 100 mg/dl 07/01/2016 18:28 [facility] Fasting? No 07/01/2016 14:54 [facility] Blood specimen (specimen) BLOOD SPECIMEN / Unknown 07/01/2016 14:54 EDT 07/01/2016 17:43 EDT Jean Munoz MD CHEMISTRY & BLO OD GAS ORDERABLES [facility] [address] [place] [address] * HEMOGLOBIN A1C (07/01/2016 14:54 EDT) Hemoglobin A1C 5.9 % 07/02/2016 11:09 [facility] Comment: Reference Range: <5.7% Normal 5.7-6.4% Increased risk for diabetes =>6.5% Diagnostic for diabetes (if confirmed) The A1c goal for non adults in general is <7%. The A1c goal for selected patients may be significantly lower than 7% if this can be achieved without significant hypoglycemia or other adverse effects of treatment. Est Avg Glucose 123 mg/dl 6 11:09 [facility] Comment: eAG represents the A1c result expressed as average glucose in mg/dl. Blood specimen (specimen) BLOOD SPECIMEN / Unknown 07/01/2016 14:54 EDT 07/01/2016 17:43 EDT Jean Munoz MD CHEMISTRY & BLO OD GAS ORDERABLES [facility] [address] [place] [address] * LIPID PROFILE (INCLUDES CHOLESTEROL, TRIGLYCERIDES, HDL, LDL) (07/01/2016 14:54 EDT) Cholesterol 242 mg/dl 07/01/2016 18:28 [facility] Comment: Desirable:<200 Borderline High:200-239 High:>if=158 Triglycerides 213 mg/dl 07/01/2016 18:28 [facility] Comment: Normal:<150 Borderline High:150-199 High:200-499 Very High:>au=388 HDL 64 mg/dl 07/01/2016 18:28 [facility] Comment: Low:<40 Normal:40-60 Desirable: >60 LDL, Calculated 135 mg/dl 6 18:28 [facility] Comment: Optimal:<100 Near Optimal:100-129 Borderline High:130-159 High:160-189 Very High:>ja=910 Chol/HDL Ratio 3.8 07/01/2016 18:28 [facility] Fasting? No 07/01/2016 14:54 EDT [facility] Non HDL Cholesterol 178 mg/dl 07/01/2016 18:28 EDT [facility] Comment: Desirable:<130 Borderline:130-159 High: 160-189 Very High: >lq=079 Blood specimen (specimen) BLOOD SPECIMEN / Unknown 07/01/2016 14:54 EDT 07/01/2016 17:43 EDT Jean Munoz MD CHEMISTRY & BLO OD GAS ORDERABLES Performing Organization Address [facility] Co de Phone Number [facility] [address] [place] [address] * HIV 1/2 ANTIBODY (07/01/2016 14:54 EDT) HIV 1/2 Antibody Negative 07/02/20 16 12:20 EDT [facility] Comment: If acute HIV-1 infection is suspected in a high risk patient, submit plasma specimen for HIV-1 RNA quantification test. Reference Range: ??Negative Assayed utilizing [employer] chemiluminescent technology. Blood specimen (specimen) BLOOD SPECIMEN / Unknown 07/01/2016 14:54 EDT 07/01/2016 17:43 EDT Jean Munoz MD IMMUNOLOGY AND SEROLOGY ORDERABLES Performing Organization Address [facility] Co de Phone Number [facility] [address] [place] [address] documented in this encounter Visit Diagnoses Diagnosis Screening for HIV (human immunodeficiency virus) Special screening examination for other specified viral diseases Tobacco dependence in remission Personal history of tobacco use, presenting hazards to health Impaired glucose tolerance Impaired glucose tolerance test Fatty liver Other chronic nonalcoholic liver disease Screening for osteoporosis- Primary Special screening for osteoporosis Primary narcolepsy without cataplexy Chronic pain syndrome Chronic low back pain Lumbago Chronic use of opiate for therapeutic purpose Pain medication agreement Encounter for long-term (current) use of other medications Screen for colon cancer Special screening for malignant neoplasms, colon documented in this encounter Care Teams Special Education Case Manager Relationship Specialty Start Date End Date Jean Munoz MD [address] [place] [phone] PCP - General 12/31/08 Manny Rizzo MD [address] [place] [phone] 04/20/10 documented as of this encounter
--- OUTSIDE RECORDS SUMMARY | 2024-06-10 07:22 | XMS_ITS | Encounter Summary ---
Author Organization [facility] Address [address] [place] [address] Care Team Providers Care Chicken Vaccinator Name Role Phone Jean Munoz MD Primary Care Provider Manny Rizzo MD Unavailable Reason for Visit * Reason Comments New Patient Visit spot of concern on n ose * Consult (Routine/Next Available) - Specialty Report Received Specialty Diagnoses / Procedures Referred By Alex weldon Referred To Contact Dermatology Diagnoses Fibrous papule of nose Jean Munoz MD [address] [place] [address] [facility] Dermatology [address] [place] [id number] Referral ID Status Reason Start Date Expiration Date Visits Requested Visits Authorized [id number] Specialty Report Received Specialty Services Required 6 1 1 Encounter Details Date Type Department Care Team (Late st Contact Info) Description 09/25/2016 15:00 EST Office Visit [facility] Dermatology 3rd [address] [address] Patrice Delvalle MD [address] [place] [address], [facility] [address] [place] [address] Angioma (Primary Dx) Social History Tobacco Use Types [...] Yes 02/15/2014 documented as of this encounter Progress Notes * Natijett Tracey - 09/25/2016 1500 EST Review of Systems Constitutional: Negative for fatigue, fever and unexpected weight change. HENT: Negative for mouth sores. Eyes: Negative for pain. Respiratory: Positive for cough and shortness of breath. Cardiovascular: Negative for chest pain and palpitations. Gastrointestinal: Negative for abdominal pain, blood in stool, constipation, diarrhea, nausea and vomiting. Genitourinary: Negative for dysuria, frequency and hematuria. Musculoskeletal: Positive for myalgias, arthralgias and muscle stiffness in the morning. Negative for joint swelling. Skin: Negative for rash. Neurological: Negative for numbness and headaches. Endo/Heme/Allergies: Does not bruise/bleed easily. Psychiatric/Behavioral: Negative for sleep disturbance. The patient is not nervous/anxious. Tracey Cruz 09/25/2016 15:03 * Patrice Delvalle MD - 09/25/2016 1500 EST Dermatology Outpatient Clinic Note 09/25/2016 Chief Complaint: History of Present Illness: Patient is a 55 y.o. female who presents for new evaluation and treatment of red spot nose x 1 yr. Bleeds now and then. No hx skin ca. No fh melanoma. From [place] originally. has a current medication list which includes the following prescription(s): baclofen, ciclesonide, cyclosporine, docusate sodium, doxycycline, fexofenadine, fluticasone-salmeterol, hydrocodone-acetaminophen, hydrocodone-acetaminophen, hydrocodone-acetaminophen, hydrocodone-acetaminophen, hypromellose, ipratropium- albuterol, levalbuterol, methylphenidate, methylphenidate, montelukast, omeprazole, ondansetron, pregabalin, roflumilast, ropinirole, sertraline, sumatriptan, tamsulosin, tiotropium bromide, and zolpidem. See documentation in [facility] for medical, surgical, social and family history, which were reviewed atthis visit. Present medications, allergies, review of systems are also documented and were all reviewed at this visit. EXAM: a/o x 3. NAD. Scalp face neck trunk and arms seen 1-2 mm red macule nasal bridge, blanches IMPRESSION & PLAN: Angioma- reassurance. rtc prn. Photo taken. Patrice Delvalle MD 09/25/2016 15:13 documented in this encounter Plan of Treatment Upcoming Encounters Date Type Department Care Team (Late st Contact Info) Description 06/29/2024 14:15 EDT Office Visit [facility] [address] [place] [address] Jean Munoz MD [address] [place] [phone] documented as of this encounter Visit Diagnoses Diagnosis Angioma- Primary Hemangioma of unspecified site Screening for osteoporosis- Primary Special screening for osteoporosis Primary narcolepsy without cataplexy Chronic pain syndrome Chronic low back pain Lumbago Chronic use of opiate for therapeutic purpose Pain medication agreement Encounter for long-term (current) use of other medications Screen for colon cancer Special screening for malignant neoplasms, colon documented in this encounter Care Teams Chicken Vaccinator Relationship Specialty Start Date End Date Jean Munoz MD [address] [place] [address] PCP - General 12/31/08 [place] [address] [place] [phone] 04/20/10 documented as of this encounter
--- OUTSIDE RECORDS SUMMARY | 2024-06-10 07:22 | XMS_ITS | Encounter Summary ---
Author Organization [facility] Address [address] [place] [address] Care Team Providers Care Banner Painter Name Role Phone Jean Munoz MD Primary Care Provider Manny Rizzo MD Unavailable Afia Valle MD Unavailable Jesi Leong DIGITAL MEDIA INTERN Unavailable [phone] SaloJesi shanks DIGITAL MEDIA INTERN Unavailable Reason for Visit * Reason Onset Date Comments Medications Refill 11/14/2016 Encounter Details Date Type Department Care Team (Late st Contact Info) Description 11/14/2016 Refill [facility] Medicine [facility] [address] [place] [address] Jean Munoz MD [address] [place] [address] Medications Refill Social History Tobacco [...] caps (600mg) 60 Cap 4 11/16/2016 04/15/2017 documented in this encounter Miscellaneous Notes * Telephone Encounter - Jean Munoz MD - 11/16/2016 1637 EST Script done, please call in to pharmacy and notify patient, thanks * Telephone Encounter - Hermelinda Hu - 11/16/2016 1623 EST Medication(s) Requested: lyrica Preferred Pharmacy: [facility] Is patient out of medication? Unknown Last Refill Date: 04/13/16 Last Visit Date with Ordering Provider: 10/01/16 Next Visit Date as it relates to the requested medication: 12/23/16 Last Related Labs Date: ANGELICA Hu RN 11/16/2016 16:24 documented in this encounter Plan of Treatment Upcoming Encounters Date Type Department Care Team (Late st Contact Info) Description 06/29/2024 14:15 EDT Office Visit [facility] [address] [place] [address] Jean Munoz MD [address] [place] [address] documented as of this encounter [...] back pain laterality, with sciatica presence unspecified Take 1 Cap by mouth 2 times daily. Daily Max: 600 mg Reorder 04/13/2016 11/14/2016 documented as of this encounter Additional Health Concerns Infection Onset Date Last Indicated Resolved Time R/O COVID-19 05/15/2022 05/15/2022 05/20/2022 22:1 6 EDT R/O COVID-19 11/14/2022 11/14/2022 11/14/2022 19:1 6 EST documented as of this encounter Care Teams Banner Painter Relationship Specialty Start Date End Date Jean Munoz MD [address] [place] [address] PCP - General 12/31/08 Manny Rizzo MD [address] [place] [address] 04/20/10 Afia Valle MD [address] [place] [address] [address] [place] [address] MD Care Team Radiation Oncology 07/02/21 Jesi Leong DIGITAL MEDIA INTERN [address] [place] [phone] Member Of Congress 12/24/21 09/20/22 Jesi Leong LICSW [address] [place] [address] Behavioral Health Member Of CongressTransportation Aid Care 10/19/22 01/23/24 documented as of this encounter
--- OUTSIDE RECORDS SUMMARY | 2024-06-10 07:22 | XMS_ITS | Encounter Summary ---
Author Organization [facility] Address [address] [place] [address] Care Team Providers Care French Folder Name Role Phone Jean Munoz MD Primary Care Provider Manny Rizzo MD Unavailable Reason for Visit * Reason Onset Date Comments Medication Management 07/21/2016 Encounter Details Date Type Department Care Team (Late st Contact Info) Description 07/21/2016 Telephone [facility] [address] [place] [address] Jean Munoz MD [address] [place] [phone] Medication Management Social History Tobacco Use [...] Telephone Encounter - Lena Healy RN - 07/28/2016 0840 EST Notified pharmacy to refill on 08/05. Notified pt of above * Telephone Encounter - Rosita Friedman - 07/28/2016 0832 EST Patient states she spoke with the pharmacist at [facility] to fill Hydrocodone script early and pharmacy states they had not been notified. Patient spoke with pharmacy this morning. Please call patient to confirm * Telephone Encounter - Vanessa Wade - 07/23/2016 1556 EST Notified pharmacy - ok for early refill * Telephone Encounter - Jean Munoz MD - 07/22/2016 0919 EST Yes, they can fill 08/05/16, thanks * Telephone Encounter - Kavita Mann - 07/21/2016 1036 EST Reason for Call: Medication Problem Summary/Symptoms: Patient calling regarding script for hydrocodone. It is dated for 08.06.16, whichis Thanksgiving and the pharmacy is closed that day. They told her they could fill it one day early, if they have a verbal approval from provider. Onset and Duration? Appointment Offered? No Kavita Mann 07/21/2016 10:36 documented in this encounter Plan of Treatment Upcoming Encounters Date Type Department Care Team (Late st Contact Info) Description 06/29/2024 14:15 EDT Office Visit [facility] [address] [place] [address] Jean Munoz MD [address] [place] [address] documented as of this encounter Visit Diagnoses Not on filedocumented in this encounter Care Teams French Folder Relationship Specialty Start Date End Date Jean Munoz MD [address] [place] [phone] PCP - General 12/31/08 Manny Rizzo MD [address] [place] [phone] 04/20/10 documented as of this encounter
--- OUTSIDE RECORDS SUMMARY | 2024-06-10 07:22 | XMS_ITS | Encounter Summary ---
Author Organization [facility] Address [address] [place] [address] Care Team Providers Care Survey Research Professor Name Role Phone Jean Munoz MD Primary Care Provider Manny Rizzo MD Unavailable Reason for Visit * Reason Comments Chronic Pain Encounter Details Date Type Department Care Team (Latest Contact Info) Description 10/01/2016 11:30 EST Office Visit [facility] [address] [place] [address] Jean Munoz MD [address] [place] [phone] Gastroenteritis (Primary Dx); Chronic pain syndrome; Cervicalgia; Chronic knee pain, unspecified laterality; Insomnia, unspecified type; Other type of migraine Social History Tobacco Use Types Packs/Day Years [...] Sign Reading Time Taken Comments Blood Pressure 126/74 10/01/2016 1138 EST Pulse 88 10/01/2016 1138 EST Temperature 37 ??C (98.6 ??F) 10/01/2016 1138 EST Respiratory Rate 16 10/01/2016 1138 EST Oxygen Saturation - - Inhaled Oxygen Concentration - - Weight 87.5 kg (193 lb) 10/01/2016 1138 EST Height 162.6 cm (5' 4.02) 10/01/2016 1138 EST Body Mass Index 33.11 10/01/2016 1138 EST documented in this encounter Functional Status [...] mg. Patient averages 12 headaches per month. 9 Tab 2 10/01/2016 01/07/2017 zolpidem (AMBIEN) 5 mg tabletIndications:Insomn ia, unspecified type Take 1 Tab by mouth at bedtime as needed for Sleep. Daily Max: 5 mg 28 Tab 5 10/01/2016 03/04/2017 HYDROcodone-acetaminophe n (NORCO) 5-325 mg tabletIndications:Chroni c pain syndrome,Chronic knee pain, unspecified laterality Take 1-2 Tabs by mouth every 6 hours as needed for up to 28 days for Pain. Earliest Fill Date: 10/01/16 Daily Max: 8 Tabs 112 Tab 10/01/2016 12/23/2016 HYDROcodone-acetaminophe n (NORCO) 5-325 mg tabletIndications:Chroni c pain syndrome,Chronic knee pain, unspecified laterality Take 1-2 Tabs by mouth every 6 hours as needed for up to 28 days for Pain. Earliest Fill Date: 10/29/16 Daily Max: 8 Tabs 112 Tab 10/29/2016 12/23/2016 HYDROcodone-acetaminophe n (NORCO) 5-325 mg tabletIndications:Chroni c pain syndrome,Cervicalgia,Chr onic knee pain, unspecified laterality Take 1-2 Tabs by mouth every 6 hours as needed for up to 28 days for Pain. Earliest Fill Date: 11/26/16 Daily Max: 8 Tabs 112 Tab 11/26/2016 12/23/2016 documented in this encounter Progress Notes * Jean Munoz MD - 10/01/2016 1130 EST Subjective: Patient ID: Liset Viera is an 55 y.o. female. Chief Complaint Patient presents with ??? Chronic Pain HPI 55-year-old female here for follow-up of multiple issues Main concern today is recent and nausea and vomiting with diarrhea Onset about 3 days ago Still present and essentially unchanged Has had vomiting ??4 episodes in the last 24 hours Has diarrhea whenever I eat and drink No hematemesis or hematochezia Using ondansetron 4 mg or nausea but does not think that this helps However she is use this in the past and has found that to be more effective than any other antiemetic that she has taken Also using Imodium for diarrhea No recent travel no recent exposures Has proton pump November home but is not taking In addition she has had some emotional stress Her mgfirtk-ox-axc John Ervin was shot and killed recently in [place] [place] Friend was injured and is in the hospital Her Valente Ervin and her [id number] Jorge Ervin are understandably upset and this is been stressful for her as well Also has chronic pain has been on hydrocodone 4 per day for neck and knee pain and back pain This has been stable recently review of CPM as confirms last prescription filled September 03 Also on Ambien chronically for insomnia Prescribed methylphenidate for narcolepsy by sleep specialist Active problem list, past medical history, past [...] ??? Laceration of right hand ??? Nausea Past Medical History: Diagnosis Date ??? Abdominal [...] DAILY as directed 3 Inhaler 3 ??? HYDROcodone-acetaminophen (NORCO) 5-325 mg tablet Take 1 Tab by mouth 4 times daily for 11 daysEarliest Fill Date: 09/23/15 Daily Max: 4 Tabs 44 Tab 0 ??? hydroxypropyl methylcellulose (ISOPTO TEARS) [...] SIX HOURS NEEDED 3 Inhaler 3 ??? methylphenidate (RITALIN;METHYLIN) 10 mg tablet Take one tab in the afternoon for narcolepsy. Earliest Fill Date: 09/24/16 30 Tab 0 ??? methylphenidate (RITALIN;METHYLIN) 20 mg tablet Take 2 tabs by mouth in the morning. Earliest Fill Date: 09/24/16 60 Tab 0 ??? montelukast (SINGULAIR) 10 mg tablet Take 1 Tab by mouth daily. 90 Tab 3 ??? omeprazole (PRILOSEC) 40 mg capsule Take 1 Cap by mouth daily. 90 Cap 3 ??? ondansetron (ZOFRAN) 4 mg tablet TAKE ONE TABLET BY MOUTH DAILY NEEDED for nausea 30 Tab 3 ??? pregabalin (LYRICA) 300 mg capsule Take 1 Cap by mouth 2 times daily. Daily Max: 600 mg 60 Each5 ??? roflumilast (DALIRESP) 500 mcg tablet Take [...] 2.5 mcg as directed daily.12 g 3 No current facility-administered medications on file prior to visit. Allergies Allergen Reactions ??? Toradol [Ketorolac Tromethamine] Hives ??? Motrin [Ibuprofen] Itching Social Social History Substance Use Topics ??? Smoking status: Former Smoker Packs/day: 1.50 Years: 52.50 Types: Cigarettes Start date: 09/13/1975 Quit date: 09/13/2012 ??? Smokeless tobacco: Never Used ??? Alcohol use No Comment: rarely ROS - See HPI Objective: Visit Vitals ??? BP 126/74 (BP Cuff Location: Left arm) ??? Pulse 88 ??? Temp 37 ??C (98.6 ??F) (Tympanic) ??? Resp 16 ??? Ht 162.6 cm (64.02) ??? Wt 87.5 kg (193 lb) ??? LMP 01/11/1987 ??? BMI 33.11 kg/m2 Physical Exam deferred Assessment: Plan: Liset was seen today for chronic pain. Diagnoses and all orders for this visit: Gastroenteritis Likely infectious, may be viral versus bacterial No warning signs such as blood in stool Push fluids Continue antiemetics when necessary and Imodium If symptoms persist or worsen consider urgent care evaluation for IV fluids and IV antibiotic Unable to give urine sample today so we will defer urine screening to visit Chronic pain syndrome Cervicalgia Chronic knee pain, unspecified laterality - HYDROcodone-acetaminophen (NORCO) 5-325 mg tablet; Take 1-2 Tabs by mouth every 6 hours as neededfor up to 28 days for Pain. Earliest Fill Date: 11/26/16 Daily Max: 8 Tabs - HYDROcodone-acetaminophen (NORCO) 5-325 mg tablet; Take 1-2 Tabs by mouth every 6 hours as neededfor up to 28 days for Pain. Earliest Fill Date: 10/29/16 Daily Max: 8 Tabs - HYDROcodone-acetaminophen (NORCO) 5-325 mg tablet; Take 1-2 Tabs by mouth every 6 hours as neededfor up to 28 days for Pain. Earliest Fill Date: 10/01/16 Daily Max: 8 Tabs A Re[employer]([place] Prescription Monitoring System) report on this patient was printed and reviewed today to ensure the prescribing and dispensing of their medications is in accordance with the treatment plan. Insomnia, unspecified type - zolpidem (AMBIEN) 5 mg tablet; Take 1 Tab by mouth at bedtime as needed for Sleep. Daily Max: 5 mg Other type of migraine - sumatriptan (IMITREX) 50 mg tablet; Take 1 tablet by mouth as needed for migraine. Daily maximum dose: 100 mg. Patient averages 12 headaches per month. Brief counseling on recent stress Patient Education Topic: as above Method: Verbal Taught to: Patient Barriers: None Outcomes: Verbalized understanding Return in about 12 weeks (around 12/24/2016) for SERA. documented in this encounter Plan of Treatment Upcoming Encounters Date Type Department Care Team (Late st Contact Info) Description 06/29/2024 14:15 EDT Office Visit [facility] [address] [place], [place] [phone] Jean Munoz MD [address] [place] [address] documented as of this encounter Visit Diagnoses Diagnosis Gastroenteritis- Primary Other and unspecified noninfectious gastroenteritis and colitis Chronic pain syndrome Cervicalgia Chronic knee pain, unspecified laterality Insomnia, unspecified type Other type of migraine Screening for osteoporosis- Primary Special screening for [...] en (NORCO) 5-325 mg tabletIndications:Chron ic pain syndrome,Cervicalgia,Ch ronic knee pain, unspecified laterality Take 1-2 Tabs by mouth every 6 hours as needed for up to 28 days for Pain. Earliest Fill Date: 09/03/16 Daily Max: 8 Tabs Reorder 09/03/2016 10/01/2016 HYDROcodone-acetaminoph en (NORCO) 5-325 mg tabletIndications:Chron ic pain syndrome,Chronic knee pain, unspecified laterality Take 1-2 Tabs by mouth every 6 hours as needed for up to 28 days for Pain. Earliest Fill Date: 08/06/16 Daily Max: 8 Tabs Reorder 08/06/2016 10/01/2016 HYDROcodone-acetaminoph en (NORCO) 5-325 mg tabletIndications:Chron ic pain syndrome,Chronic knee pain, unspecified laterality Take 1-2 Tabs by mouth every 6 hours as needed for up to 28 days for Pain. Earliest Fill Date: 07/09/16 Daily Max: 8 Tabs Reorder 07/09/2016 10/01/2016 zolpidem (AMBIEN) 5 mg tabletIndications:Insom yesi, unspecified type Take 1 Tab by mouth at bedtime as needed for Sleep. Daily Max: 5 mg Reorder 05/11/2016 10/01/2016 sumatriptan (IMITREX) 50 mg tabletIndications:Other type of migraine Take 1 tablet by mouth as needed for migraine. Daily maximum dose: 100 mg. Patient averages 12 headaches per month. Reorder 04/13/2016 10/01/2016 documented as of this encounter Care Teams Survey Research Professor Relationship Specialty Start Date End Date Jean Munoz MD [address] [place] [address] PCP - General 12/31/08 Manny Rizzo MD [address] [place] [address] 04/20/10 documented as of this encounter
--- OUTSIDE RECORDS SUMMARY | 2024-06-10 07:22 | XMS_ITS | Encounter Summary ---
Author Organization [facility] Address [address] [place] [address] Care Team Providers Care Farmer Vegetable Name Role Phone Jean Munoz MD Primary Care Provider Manny Rizzo MD Unavailable Reason for Visit * Reason Onset Date Comments Medications Refill 07/27/2016 Encounter Details Date Type Department Care Team (Late st Contact Info) Description 07/27/2016 Telephone [facility] Sleep Program - [address] [phone] Corrina Ac, RN [address] [place] [address] Medications Refill Social History Tobacco Use Types [...] the afternoon for narcolepsy. Earliest Fill Date: 07/30/16 30 Tab 07/30/2016 08/21/2016 methylphenidate (RITALIN;METHYLIN) 20 mg tablet Take 2 tabs by mouth in the morning. Earliest Fill Date: 07/30/16 60 Tab 07/30/2016 08/21/2016 documented in this encounter Miscellaneous Notes * Telephone Encounter - Corrina Ac RN - 07/27/2016 4084 EST Left message for pt to let know ( ritalin ) prescription(s) ready for cook pickled meat at the Sleep Program. documented in this encounter Plan of Treatment Upcoming Encounters Date Type Department Care Team (Late st Contact Info) Description 06/29/2024 14:15 EDT Office Visit [facility] [address] [place] [address] Jean Munoz MD [address] [place] [phone] documented as of this encounter Visit Diagnoses Not on filedocumented in this encounter Discontinued Medications Medication Sig Discontinue Reason Start Date End Da te methylphenidate (RITALIN;METHYLIN) 20 mg tablet Take 2 tabs by mouth in the morning. Earliest Fill Date: 07/02/16 Reorder 07/02/2016 07/27/2016 methylphenidate (RITALIN;METHYLIN) 10 mg tablet Take one tab in the afternoon for narcolepsy. Earliest Fill Date: 07/02/16 Reorder 07/02/2016 07/27/2016 documented as of this encounter Care Teams Farmer Vegetable Relationship Specialty Start Date End Date Jean Munoz MD [address] [place] [address] PCP - General 12/31/08 Manny Rizzo MD [address] [place] [phone] 04/20/10 documented as of this encounter
--- OUTSIDE RECORDS SUMMARY | 2024-06-10 07:22 | XMS_ITS | Encounter Summary ---
Author Organization [facility] Address [address] [place] [address] Care Team Providers Care Wrapper Layer And Examiner Soft Work Name Role Phone Jean Munoz MD Primary Care Provider Manny Rizzo MD Unavailable Reason for Visit * Reason Onset Date Comments Provider Referred 07/06/2016 Encounter Details Date Type Department Care Team (Late st Contact Info) Description 07/06/2016 Telephone [facility] Dermatology 3rd Floor [address] [phone] Felicita Schneider MD [address] [place] [address], [address] [place] [address] Provider Referred Social History Tobacco Use Types Packs/Day Years [...] encounter Miscellaneous Notes * Telephone Encounter - Rosalind Lilly RN - 07/07/2016 0848 EDT Call to patient re referral from Dr Munoz papule nose States present over 6 months 1 cm, bridge nose, dark pink, bleeds at times Dry itchy flakey No Hx skin cancer NPV 08/24/16 1430 MD Rosalind Dickens RN * Telephone Encounter - Jaycee Bermudez - 07/06/2016 1440 EDT Per manager english Jean Munoz MD is referring patient for a Fibrous papule of nose. Notes inprism. Please call patient to schedule documented in this encounter Plan of Treatment Upcoming Encounters Date Type Department Care Team (Late st Contact Info) Description 06/29/2024 14:15 EDT Office Visit [facility] [address] [place] [address] Jean Munoz MD [address] [place] [address] documented as of this encounter Visit Diagnoses Not on filedocumented in this encounter Care Teams Wrapper Layer And Examiner Soft Work Relationship Specialty Start Date End Date Jean Munoz MD [address] [place] [phone] PCP - General 12/31/08 Manny Rizzo MD [address] [place] [phone] 04/20/10 documented as of this encounter
--- OUTSIDE RECORDS SUMMARY | 2024-06-10 07:22 | XMS_ITS | Encounter Summary ---
Author Organization [facility] Address [address] [place] [address] Care Team Providers Care Global Marketing Operations Manager Name Role Phone Jean Munoz MD Primary Care Provider Manny Rizzo MD Unavailable Encounter Details Date Type Department Care Team (Late st Contact Info) Description 12/23/2016 Phlebotomy Only [facility] [address], [place] [id number] Public Health Doctor, Outpatient Nausea and vomiting, intractability of vomiting not specified, unspecified vomiting type; Diarrhea, unspecified type; Chronic pain syndrome; Cervicalgia; Chronic knee pain, unspecified laterality Social History Tobacco Use Types Packs/Day Years [...] [facility] [address] [place] [address] Jean Munoz MD [address] [place] [phone] documented as of this encounter Procedures Procedure Name Priority Date/Time Associated Diagnosis Comments SED RATE Routine 12/23/2016 12:28 EDT Nausea and vomiting, intractability of vomiting not specified, unspecified vomiting type Diarrhea, unspecified type Chronic pain syndrome Cervicalgia Chronic knee pain, unspecified laterality COMPLETE BLOOD COUNT AND DIFFERENTIAL Routine 12/23/2016 12:28 EDT Nausea and vomiting, intractability of vomiting not specified, unspecified vomiting type Diarrhea, unspecified type Chronic pain syndrome Cervicalgia Chronic knee pain, unspecified laterality COMPREHENSIVE METABOLIC PANEL (CMP) Routine 12/23/2016 12:28 EDT Nausea and vomiting, intractability of vomiting not specified, unspecified vomiting type Diarrhea, unspecified type Chronic pain syndrome Cervicalgia Chronic knee pain, unspecified laterality documented in this encounter Results * SED. RATE:TRAE (12/23/2016 12:28 EDT) Sed. Rate Trae 6 0 - 30 mm/hr 12/23/2016 16:23 EDT [facility] Blood specimen (specimen) BLOOD SPECIMEN / Unknown 12/23/2016 12:28 EDT 12/23/2016 15:49 EDT Jean Munoz MD HEMATOLOGY & PF 4 ORDERABLES [facility] [address] [place] [address] * (ABNORMAL) COMPREHENSIVE METABOLIC PANEL (CMP) (12/23/2016 12:28 EDT) Potassium 3.7 3.5 - 5.0 mEq/L 12/23/2016 16:47 [facility] Sodium 145 136 - 145 mEq/L 12/23/2016 16:47 [facility] Chloride 107 96 - 110 mEq/L 12/23/2016 16:47 [facility] CO2 25 22 - 32 mEq/L 12/23/2016 16:47 [facility] Total Alkaline Phosphatase 116 38 - 126 U/L 12/23/2016 16:47 [facility] Bilirubin, Total <0.5 <1.4 mg/dl 12/24/19 17 16:47 [facility] AST 15 15 - 46 U/L 12/23/2016 16:47 [facility] ALT 23 <53 U/L 12/23/2016 16:47 [facility] Albumin 4.4 3.4 - 4.9 g/dl 12/23/2016 16:47 [facility] Total Protein 7.0 6.3 - 8.2 g/dl 12/23/2016 16:47 [facility] Creatinine 0.65 0.52 - 1.04 mg/dl 12/23/2016 16:47 [facility] GFR, Calculated 99 >60 ml/min/1.7 3m2 12/23/2016 16:47 [facility] Comment: eGFR calculated using CKD-EPI equation for non Americans. Multiply eGFR by 1.16 for Americans. BUN 13 10 - 26 mg/dl 12/23/2016 16:47 [facility] Calcium 9.5 8.5 - 10.5 mg/dl 12/23/2016 16:47 [facility] Calculated Calcium 9.2 8.5 - 10.5 mg/dl 12/23/2016 16:47 [facility] Glucose, Serum 101(H) 70 - 100 mg/dl 12/23/2016 16:47 [facility] Fasting? No 12/23/2016 12:29 [facility] Blood specimen (specimen) BLOOD SPECIMEN / Unknown 12/23/2016 12:28 EDT 12/23/2016 15:49 EDT Jean Munoz MD CHEMISTRY & BLO OD GAS ORDERABLES [facility] [address] [place] [address] * HEMAGRAM AND DIFFERENTIAL (12/23/2016 12:28 EDT) WBC 7.86 4.0 - 12.4 K/cmm 12/23/2016 16:05 [facility] RBC 4.72 3.86 - 5.04 M/cmm 12/23/2016 16:05 [facility] Hemoglobin 14.7 11.6 - 15.2 gm/dl 12/23/2016 16:05 [facility] HCT 42.4 34.9 - 44.4 % 12/23/2016 16:05 [facility] MCV 90 81 - 98 fl 12/23/2016 16:05 [facility] MCH 31.1 26.7 - 33.3 pg 12/23/2016 16:05 [facility] MCHC 34.7 32.1 - 35.9 gm/dl 12/23/2016 16:05 [facility] RDW-CV 13.9 11.7 - 14.6 % 12/23/2016 16:05 [facility] RDW-SD 45.7 37.6 - 50.3 fl 12/23/2016 16:05 [facility] PLT 365 141 - 377 K/cmm 12/23/2016 16:05 [facility] MPV 10.5 9.5 - 12.7 fl 12/23/2016 16:05 [facility] % Neutrophils 57.5 % 12/23/2016 16:05 [facility] % Lymphocytes 32.3 % 12/23/2016 16:05 [facility] % Monocytes 6.5 % 12/23/2016 16:05 [facility] % Eosinophils 2.8 % 12/23/2016 16:05 [facility] % Basophils 0.6 % 12/23/2016 16:05 [facility] % Immature Grans 0.3 % 12/23/2016 16:05 [facility] ABS Neutrophils 4.52 2.20 - 8.85 K/cmm 12/23/2016 16:05 [facility] ABS Lymphs 2.54 1.09 - 3.30 K/cmm 12/23/2016 16:05 [facility] ABS Monocytes 0.51 0.1 - 0.8 K/cmm 12/23/2016 16:05 [facility] ABS Eosinophils 0.22 0.03 - 0.61 K/cmm 12/23/2016 16:05 [facility] ABS Basophils 0.05 0.01 - 0.11 K/cmm 12/23/2016 16:05 [facility] ABS Immature Grans 0.02 0 - 0.06 K/cmm 12/23/2016 16:05 [facility] Type of Diff: Automated 12/23/2016 16:05 [facility] Blood specimen (specimen) BLOOD SPECIMEN / Unknown 12/23/2016 12:28 EDT 12/23/2016 15:49 EDT Jean Munoz MD PACKAGES & DNA PROBE ORDERABLES [facility] [address] [place] [address] documented in this encounter Visit Diagnoses Diagnosis Nausea and vomiting, intractability of vomiting not specified, unspecified vomiting type Diarrhea, unspecified type Chronic pain syndrome Cervicalgia Chronic knee pain, unspecified laterality Screening for osteoporosis- Primary Special screening for osteoporosis Primary narcolepsy without cataplexy Chronic pain syndrome Chronic low back pain Lumbago Chronic use of opiate for therapeutic purpose Pain medication agreement Encounter for long-term (current) use of other medications Screen for colon cancer Special screening for malignant neoplasms, colon documented in this encounter Care Teams Global Marketing Operations Manager Relationship Specialty Start Date End Date Jean Munoz MD [address] [place] [phone] PCP - General 12/31/08 Manny Rizzo MD [address] [place] [phone] 04/20/10 documented as of this encounter
--- OUTSIDE RECORDS SUMMARY | 2024-06-10 07:22 | XMS_ITS | Encounter Summary ---
Author Organization [facility] Address [address] [place] [address] Care Team Providers Care Gluer Name Role Phone Jean Munoz MD Primary Care Provider Manny Rizzo MD Unavailable Encounter Details Date Type Department Care Team (Late st Contact Info) Description 12/23/2016 Results Only [facility] Family Medicine [facility] [address] [place] [address] Jean Munoz MD [address] [place] [phone] Social History Tobacco [...] Office Visit [facility] [address] [place] [address] Jean Munoz MD [address] [place] [phone] documented as of this encounter Procedures Procedure Name Priority Date/Time Associated Diagnosis Comments BENZODIAZEPINE PANEL CONFIRMATION Routine 12/23/2016 12:06 EDT documented in this encounter Results * BENZODIAZEPINES CONF (12/23/2016 12:06 EDT) Nordiazepam GC/MS Conf Negative Cutoff: 100 ng/mL 12/30/2016 7:18 [facility] Oxazepam GC/MS Conf Negative Cutoff: 100 ng/mL 12/30/2016 7:18 [facility] Lorazepam by GC/MS Negative Cutoff: 100 ng/mL 12/30/2016 7:18 [facility] Temazepam by GC/MS Negative Cutoff: 100 ng/mL 12/30/2016 7:18 [facility] [place] Ethyl Flurazepam by GC/MS Negative Cutoff: 100 ng/mL 12/30/2016 7:18 [facility] 7 [place] Clonazepam by GC/MS Negative Cutoff: 100 ng/mL 12/30/2016 7:18 [facility] [place] Alprazolam by GC/MS Negative Cutoff: 100 ng/mL 12/30/2016 7:18 EDT [facility] 7 [place] Flunitrazepam by GC/MS Reference range: Cutoff: 50 Cutoff: 50 12/30/2016 7:18 T [facility] Comment: (Note) Unknown interfering substance present; unable to obtain results. [place] Triazolam by GC/MS Negative Cutoff: 100 ng/mL 12/30/2016 7:18 EDT [facility] Interpretation (Note) 12/30/2016 7:18 [facility] Comment: Chromatographic interference prevents accurate identification. . Temazepam and AS-Fgswp-Oxxijcztpv testing performed at a x2 dilution; limit of quantitation is elevated. . ADDITIONAL INFORMATION This report is intended for use in clinical monitoring and management of patients. ??It is not intended for use in employment-related testing. This test was developed and its performance characteristics determined by [facility] in a manner consistent with CLIA requirements. This test has not been cleared or approved by the U.S. Food and Drug Administration. Performed by: [facility]: [address], [place] [address], Lab Dir: Efren Birmingham II, M.D., Ph.D. URINE / Unknown 12/23/2016 1 2:06 EDT 12/23/2016 17:34 EDT Jean Munoz MD UR[facility]ALYSIS [place] [facility] Organization Address City/State/ZIP Co de Phone Number [facility] [address] [place] [address] documented in this encounter Visit Diagnoses Not on filedocumented in this encounter Care Teams Gluer Relationship Specialty Start Date End Date Jean Munoz MD [address] [place] [phone] PCP - General 12/31/08 Manny Rizzo MD [address] [place] [phone] 04/20/10 documented as of this encounter
--- OUTSIDE RECORDS SUMMARY | 2024-06-10 07:22 | XMS_ITS | Encounter Summary ---
Author Organization [facility] Address [address] [place] [address] Care Team Providers Care Senior Ux Designer Name Role Phone Jean Munoz MD Primary Care Provider Manny Rizzo MD Unavailable Encounter Details Date Type Department Care Team (Late st Contact Info) Description 11/20/2016 Abstract [facility] [address] [place] [address] Jean Munoz MD [address] [place] [address] Social History Tobacco Use Types [...] Office Visit [facility] [address] [place] [address] Jean Munoz MD [address] [place] [phone] documented as of this encounter Visit Diagnoses Not on filedocumented in this encounter Care Teams Senior Ux Designer Relationship Specialty Start Date End Date Jean Munoz MD [address] [place] [phone] PCP - General 12/31/08 Manny Rizzo MD [address] [place] [phone] 04/20/10 documented as of this encounter
--- OUTSIDE RECORDS SUMMARY | 2024-06-10 07:22 | XMS_ITS | Encounter Summary ---
Author Organization [facility] Address [address] [place] [address] Care Team Providers Care Help Desk Support Specialist Name Role Phone Jean Munoz MD Primary Care Provider Manny Rizzo MD Unavailable Reason for Visit * Reason Onset Date Comments Medications Refill 08/21/2016 Encounter Details Date Type Department Care Team (Late st Contact Info) Description 08/21/2016 Telephone [facility] Sleep Program - [address] [phone] Corrina Ac, RN [address] [place] [address] Medications Refill Social History Tobacco Use Types [...] the afternoon for narcolepsy. Earliest Fill Date: 08/27/16 30 Tab 08/27/2016 09/22/2016 methylphenidate (RITALIN;METHYLIN) 20 mg tablet Take 2 tabs by mouth in the morning. 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 documented in this encounter Plan of Treatment Upcoming Encounters Date Type Department Care Team (Late st Contact Info) Description 06/29/2024 14:15 EDT Office Visit [facility] Medicine [facility] [address] [place], [place] [phone] Jean Munoz MD [address] [place] [phone] documented as of this encounter Visit Diagnoses Not on filedocumented in this encounter Discontinued Medications Medication Sig Discontinue Reason Start Date End Da te methylphenidate (RITALIN;METHYLIN) 20 mg tablet Take 2 tabs by mouth in the morning. Earliest Fill Date: 07/30/16 Reorder 07/30/2016 08/21/2016 methylphenidate (RITALIN;METHYLIN) 10 mg tablet Take one tab in the afternoon for narcolepsy. Earliest Fill Date: 07/30/16 Reorder 07/30/2016 08/21/2016 documented as of this encounter Care Teams Help Desk Support Specialist Relationship Specialty Start Date End Date Jean Munoz MD [address] [place] [phone] PCP - General 12/31/08 Manny Rizzo MD [address] [place] [phone] 04/20/10 documented as of this encounter
--- OUTSIDE RECORDS SUMMARY | 2024-06-10 07:22 | XMS_ITS | Encounter Summary ---
Author Organization [facility] Address [address] [place] [address] Care Team Providers Care Account Engineer Name Role Phone Jean Munoz MD Primary Care Provider Manny Rizzo MD Unavailable Reason for Visit * Reason Onset Date Comments Medications Refill 09/22/2016 Encounter Details Date Type Department Care Team (Late st Contact Info) Description 09/22/2016 Telephone [facility] Sleep Program - [address] [phone] Tiana Bacon [address] [place] [address] Medications Refill Social History Tobacco [...] morning. Earliest Fill Date: 09/24/16 60 Tab 09/24/2016 10/20/2016 methylphenidate (RITALIN;METHYLIN) 10 mg tablet Take one tab in the afternoon for narcolepsy. 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 * Telephone Encounter - Corrina Ac RN - 09/22/2016 1030 EST Called [facility]. Spoke with Esha, Pharmacist. Ritalin 10mg and 20mg last filled on 08/27/16. * Telephone Encounter - Barbara Gimenez - 09/22/2016 1000 EST Medication Refill Medication(s) Requested: RITALIN 20MG & RITALIN 10MG Pharmacy (reconcile pharmacy list): [facility] Last Visit Date: 02.04.16 Next Visit Date: Visit date not found Is patient out of medication? NO Picking up/mailing (location)/calling in/eprescribe? PT WILL PICK AT DIE SET UP WORKER 30 day supply/90 day supply? 30 Barbara Gimenez 09/22/201610:01 documented in this encounter Plan of Treatment Upcoming Encounters Date Type Department Care Team (Late st Contact Info) Description 06/29/2024 14:15 EDT Office Visit [facility] [address] [place] [address] Jean Munoz MD [address] [place] [phone] documented as of this encounter Visit Diagnoses Not on filedocumented in this encounter Discontinued Medications Medication Sig Discontinue Reason Start Date End Da te methylphenidate (RITALIN;METHYLIN) 10 mg tablet Take one tab in the afternoon for narcolepsy. Earliest Fill Date: 08/27/16 Reorder 08/27/2016 09/22/2016 methylphenidate (RITALIN;METHYLIN) 20 mg tablet Take 2 tabs by mouth in the morning. Earliest Fill Date: 08/27/16 Reorder 08/27/2016 09/22/2016 documented as of this encounter Care Teams Account Engineer Relationship Specialty Start Date End Date Jean Munoz MD [address] [place] [phone] PCP - General 12/31/08 Manny Rizzo MD [address] [place] [phone] 04/20/10 documented as of this encounter
--- OUTSIDE RECORDS SUMMARY | 2024-06-10 07:22 | XMS_ITS | Encounter Summary ---
Author Organization [facility] Address [address] [place] [address] Care Team Providers Care Put In Beat Adjuster Name Role Phone Jean Munoz MD Primary Care Provider Manny Rizzo MD Unavailable Reason for Visit * Reason Onset Date Comments Other 07/28/2016 Encounter Details Date Type Department Care Team (Late st Contact Info) Description 07/28/2016 Telephone [facility] Sleep Program - [address] [phone] Corrina Ac, RN [address] [place] [address] Other Social History Tobacco Use Types Packs/Day [...] Telephone Encounter - Corrina Ac RN - 07/28/2016 0900 EST Per , ok to fill on 07/29 (doctor made note on the prescriptions themselves). Pt made aware. * Telephone Encounter - Corrina Ac RN - 07/28/2016 0822 EST Pt leaving for [place] on 07/29 and is asking if she can fill her Ritalin prescriptions on 07/29 (dayearly) before she leaves. Request sent to . documented in this encounter Plan of Treatment Upcoming Encounters Date Type Department Care Team (Late st Contact Info) Description 06/29/2024 14:15 EDT Office Visit [facility] [address] [place] [address] Jean Munoz MD [address] [place] [phone] documented as of this encounter Visit Diagnoses Not on filedocumented in this encounter Care Teams Put In Beat Adjuster Relationship Specialty Start Date End Date Jean Munoz MD [address] [place] [phone] PCP - General 12/31/08 Manny Rizzo MD [address] [place] [phone] 04/20/10 documented as of this encounter
--- OUTSIDE RECORDS SUMMARY | 2024-06-10 07:22 | XMS_ITS | Encounter Summary ---
Author Organization [facility] Address [address] [place] [address] Care Team Providers Care Patient Services Coordinator Name Role Phone Jean Munoz MD Primary Care Provider Manny Rizzo MD Unavailable Encounter Details Date Type Department Care Team (Late st Contact Info) Description 12/25/2016 Orders Only [facility] Family Medicine [facility] [address] [place] [address] Jean Munoz MD [address] [place] [phone] Chronic pain syndrome (Primary Dx) Social History Tobacco Use Types [...] 14:15 EDT Office Visit [facility] [address] [place] [address] Jean Munoz MD [address] [place] [phone] documented as of this encounter Procedures Procedure Name Priority Date/Time Associated Diagnosis Comments OUTPATIENT ADD-ON Routine 12/25/2016 10: 28 EDT Chronic pain syndrome documented in this encounter Results * OUTPATIENT ADD-ON (12/25/2016 10:28 EDT) Tests to be added BENZODIAZEPINE CONFIRMATION 12/25/2016 10:28 EDT [facility] Diagnosis Code SEE PRISM DOS 4.12 [facility] Number for problems 847 12/25/2016 10:28 T [facility] Comment:[id number] Accession number [id number] 12/25/2016 10:50 [facility] Acknowledge ABP Done 12/25/2016 11:57 [facility] BLOOD SPECIMEN / Unknown 12/25/2016 10:28 EDT 12/25/2016 10:49 EDT Jean Munoz MD HEMATOLOGY & PF 4 ORDERABLES [facility] [address] [place] [address] documented in this encounter Visit Diagnoses Diagnosis [...] colon documented in this encounter Care Teams Patient Services Coordinator Relationship Specialty Start Date End Date Jean Munoz MD [address] [place] [phone] PCP - General 12/31/08 Manny Rizzo MD [address] [place] [phone] 04/20/10 documented as of this encounter
--- OUTSIDE RECORDS SUMMARY | 2024-06-10 07:22 | XMS_ITS | Encounter Summary ---
Author Organization [facility] Address [address] [place] [address] Care Team Providers Care College Counselor Name Role Phone Jean Munoz MD Primary Care Provider aMnny Rizzo MD Unavailable Reason for Referral * Follow Up (Routine) - Closed Specialty Diagnoses / Procedures [facility]erred To Contact Diagnoses Acute hypoxemic respiratory failure (HCC-CMS) Chronic obstructive pulmonary disease, unspecified COPD type ([facility]-CMS) Steroid-induced hyperglycemia Gina Kennedy MD [address] [place] [address] Referral ID Status Reason Start Date Expiration Date V isits Requested Visits Authorized [id number] Closed Continuity of Care 01/04/2017 1 1 Question Answer Reason for Request: hospital follow up Expected Discharge Date (Inpatient Only): 01/04/2017 Reason for Visit * Reason Comments Shortness of Breath + SOB @ home. initia l sp02 in the 80's. pt. arrives dyspneic RR 30's. sp02 on 6LPM 94%. care transfered to nursing staff Encounter Details Date Type Department Care Team (Late st Contact Info) Description 12/27/2016 1:24 EDT - 01/04/2017 17:24 EDT Hospital Encounter [facility] [address] [place] [address] Siena Sesay MD 111 [facility], [facility] [address] [place] [phone] Akin Harrington MD [address] [facility], [address] [place] [phone] Amarjit Camara MD [address] [phone] Hermelinda Vega MD [address] [place] [address] [place] [id number] Acute hypoxemic respiratory failure (CMS-HCC) (Primary Dx); Chronic obstructive pulmonary disease, unspecified COPD type (CMS-HCC) ([facility]-CMS); Pneumonia of both lungs due to infectious organism, unspecified part of lung; Chronic low back pain, unspecified back pain laterality, with sciatica presence unspecified; COPD exacerbation (CMS-HCC) ([facility]-CMS); Anxiety; Chronic pain syndrome; Steroid-induced hyperglycemia; Impaired glucose tolerance Discharge Disposition: Home or Self Care Social [...] Sign Reading Time Taken Comments Blood Pressure 108/58 01/04/2017 1335 EDT Pulse 84 12/31/2016 2000 EDT Temperature 35.6 ??C (96.1 ??F) 01/04/2017 1335 EDT Respiratory Rate 22 01/04/2017 1608 EDT Oxygen Saturation 98% 01/04/2017 1608 EDT Inhaled Oxygen Concentration - - Weight 86.6 kg (190 lb 14.7 oz) 12/27/2016 0700 EDT Height 162.6 cm (5' 4.02) 12/27/2016 0700 EDT Body Mass Index 32.75 12/27/2016 0700 EDT documented in this encounter [...] as of this encounter Discharge Diagnoses Diagnosis J44.0 Chronic obstructive pulmonary disease with acute lower respiratory infection-J44.0[ICD-10-CM] J96.21 Acute and chronic respiratory failure with hypoxia-J96.21[ICD-10-CM] I50.32 Chronic diastolic (congestive) heart failure-I50.32[ICD-10-CM] J12.9 Viral pneumonia, unspecified-J12.9[ICD-10-CM] J44.1 Chronic obstructive pulmonary disease with (acute) exacerbation-J44.1[ICD-10-CM] G47.419 Narcolepsy without cataplexy-G47.419[ICD-10-CM] G89.4 Chronic pain syndrome-G89.4[ICD-10-CM] M79.7 Fibromyalgia-M79.7[ICD-10-CM] R73.9 Hyperglycemia, unspecified-R73.9[ICD-10-CM] K21.9 Gastro-esophageal reflux disease without esophagitis-K21.9[ICD-10-CM] Z87.891 Personal history of nicotine dependence-Z87.891[ICD-10-CM] E87.6 HYPOKALEMIA[ICD-10-CM] R73.03 Prediabetes-R73.03[ICD-10-CM] documented in this encounter Discharge Summaries * Hermelinda Vega - 01/04/2017 1724 EDT Medicine Discharge Summary Primary Care Provider: Jean Munoz Attending Physician: Dr. Vega Admit Date: 12/27/2016 Discharge Date: 01/04/2017 Disposition: Home or self care Reason for Admission: Hypoxic respiratory failure Principal/Final Diagnosis: Acute hypoxemic respiratory failure Additional Problems Managed in the Hospital Active Hospital Problems Diagnosis Date Noted ??? Steroid-induced hyperglycemia 01/04/2017 Resolved Hospital Problems Diagnosis Date Noted Date Resolved ??? *Acute hypoxemic respiratory failure 12/27/2016 01/04/2017 ??? COPD exacerbation 02/12/2014 01/04/2017 Principal Procedure: None Secondary Procedures: none Hospital Course: Ms. Meadows is a 55 year old woman with a history of COPD (no baseline O2 requirement, FEV1 65%), possible asthma, prediabetes, fibromyalgia, chronic pain syndrome and narcolepsy who presented with SOB and wheezing. Chest xray at admission showed multifocal patchy opacities in her bilateral lower lung dalal. She had significant hypoxia requiring high FiO2 requirements and so was admitted to [facility] ICU for high flow nasal canula. She was treated for community-acquired pneumonia with ceftriaxone and azithromycin. She was also treated for a COPD exacerbation with steroids and nebulizers. There was concern that she had a component of diastolic heart failure and she was diuresed with 5 litres of fluid removed while still in the MICU. Her oxygen requirement slowly improved and she was transfer to the internal medicine service on 01/02/17. She continued to wean off the oxygen and at discharge was respiratory without difficulty on room air. Given the degree of her illness pulmonology recommended a prolonged steroid taper with 1 more day at 50mg daily then decreasing to 40mg for 3 days, then 30mg for 3 days, then 20mg for 3 days, then 10mg for 3 days to complete the course. Her hospital course was additionally complicated by steroid induced hyperglycemia and she was treated for this with NPH 10mg and aspart insulin 20-30mg daily. Given the plan to continue tapering off the steroids which would likely improve her hyperglycemia and her lack of prior insulin use at home, she transitioned to metformin 500mg BID at discharge to help with steroid induced insulin insensitivity and given a glucometer. She was advised to contact her PCP if her BG readings went above 300 on this regimen. She will follow up with her PCP and pulmonology for further management. Condition at Discharge: Good or Improved Clinical Issues Needing Follow-up: Steroid induced hyperglycemia: Follow up with PCP to discuss further dosing of metformin and management of her BG COPD: follow up with pulmonology for monitoring as she tapers off her steroids Discharge Medications: START taking these medications Sig blood glucose test strips Commonly known as: BLOOD GLUCOSE TEST 1 Strip by misc (non-drug; combo route) route 2 times daily. guaiFENesin 600 mg SR tablet Commonly known as: MUCINEX Take 1 Tab by mouth 2 times daily. metFORMIN 500 mg tablet Commonly known as: GLUCOPHAGE Take 1 Tab by mouth 2 times daily. While on steroid taper predniSONE 10 mg tablet Commonly known as: DELTASONE Taper as follows: Take 5 tabs (50 mg) for one more day then continue to decrease daily dose by 1 tab (10 mg) every 3 days CHANGE how you take these medications Sig HYDROcodone-acetaminophen 5-325 mg tablet Commonly known as: NORCO Start taking on: 02/18/2017 What changed: Another medication with the same name was removed. Continue taking this medication, and follow the directions you see here. Take 1-2 Tabs by mouth every 6 hours as needed for up to 12 days for Pain. Earliest Fill Date: 02/18/17 Daily Max: 8 Tabs CONTINUE taking these medications Sig baclofen 10 mg tablet Commonly known as: LIORESAL Take 1 Tab by mouth 3 times daily as needed (mucles tightness). Ciclesonide 50 mcg spray,non-aerosol 100 mcg by nasal route daily. cycloSPORINE 0.05 % ophthalmic emulsion Commonly known as: RESTASIS Place 1 Drop into both eyes 2 times daily docusate sodium 100 mg capsule Commonly known as: COLACE Take 1 Cap by mouth 2 times daily as needed for Constipation. doxycycline 100 mg capsule Commonly known as: VIBRAMYCIN TAKE ONE CAPSULE BY MOUTH ONE TIME DAILY fexofenadine 180 mg tablet Commonly known as: JUDITH Take 1 Tab by mouth daily. fluticasone-salmeterol 230-21 mcg/actuation inhaler Commonly known as: ADVAIR HFA INHALE TWO PUFFS BY MOUTH TWICE DAILY as directed hypromellose 0.5 % ophthalmic solution Commonly known as: ISOPTO TEARS Place 1 Drop into both eyes 5 times daily. ipratropium-albuterol 0.5 mg-3 mg(2.5 mg base)/3 mL nebulizer solution Commonly known as: DUONEB Take 3 mL by nebulization every 4 hours as needed for Wheezing. levalbuterol 45 mcg/actuation inhaler Commonly known as: XOPENEX HFA INHALE TWO PUFFS BY MOUTH EVERY SIX HOURS NEEDED LYRICA 300 mg capsule Generic drug: pregabalin TAKE ONE CAPSULE BY MOUTH TWICE DAILY. daily max: 2 caps (600mg) * methylphenidate 20 mg tablet Commonly known as: RITALIN;METHYLIN Take 2 tabs by mouth in the morning. Earliest Fill Date: 12/17/16 * methylphenidate 10 mg tablet Commonly known as: RITALIN;METHYLIN Take one tab in the afternoon for narcolepsy. Earliest Fill Date: 12/17/16 montelukast 10 mg tablet Commonly known as: SINGULAIR Take 1 Tab by mouth daily. omeprazole 40 mg capsule Commonly known as: PRILOSEC Take 1 Cap by mouth daily. ondansetron 4 mg tablet Commonly known as: ZOFRAN TAKE ONE TABLET BY MOUTH DAILY NEEDED for nausea promethazine 25 mg tablet Commonly known as: PHENERGAN Take 1 Tab by mouth every 6 hours as needed for Nausea. roflumilast 500 mcg tablet Commonly known as: DALIRESP Take 1 Tab by mouth daily. rOPINIRole 2 mg tablet Commonly known as: REQUIP Take 1 Tab by mouth at bedtime. TAKE ONE TABLET BY MOUTH AT BEDTIME sertraline 100 mg tablet Commonly known as: ZOLOFT Take 2 Tabs by mouth daily. sumatriptan 50 mg tablet Commonly known as: IMITREX Take 1 tablet by mouth as needed for migraine. Daily maximum dose: 100 mg. Patient averages 12 headaches per month. tamsulosin 0.4 mg capsule Commonly known as: FLOMAX Take 1 Cap by mouth daily. tiotropium bromide 1.25 mcg/actuation inhaler Commonly known as: SPIRIVA RESPIMAT Inhale 2.5 mcg as directed daily. zolpidem 5 mg tablet Commonly known as: AMBIEN Take 1 Tab by mouth at bedtime as needed for Sleep. Daily Max: 5 mg * Notice: This list has 2 medication(s) that are the same as other medications prescribed for you. Read the directions carefully, and ask your doctor or other care provider to review them with you. Allergies Allergen Reactions ??? Toradol [Ketorolac Tromethamine] Hives ??? Motrin [Ibuprofen] Itching Immunization History Administered Date(s) Administered ??? Influenza (whole) 08/10/2006, 06/28/2008, 07/02/2009 ??? Influenza H1N1 IM 09/25/2009 ? ? Influenza Vaccine =>3yo Quad Preservative Free IM 06/25/2014, 09/09/2015, 07/01/2016 ? ? Influenza Vaccine =>3yo Split IM 08/11/2010, 10/01/2011 ? ? Influenza Vaccine =>3yo Split Preservative Free IM 06/24/2012, 06/29/2013 ??? Pneumococcal Conj Vacc PCV13 IM 09/09/2015 ? ? Pneumococcal Polysaccharide Vaccine (PPSV23) =>2YO SQ/IM 08/10/2006 ??? Td 04/01/2000 ? ? Tdap Vaccine =>7YO IM 04/21/2010 Results Pending at Discharge Test results still pending from this admission None Upcoming Appointments January 27, 2017 14:40 EDT Follow Up Return with Tiana Bacon MD [facility] (--) [address] [phone] Feb 17, 2017 14:30 EDT Spirometry with Terrence InVALENTINE Jackson [facility] (--) [address] [facility] [address] Feb 17, 2017 15:15 EDT Follow Up Return with Xena Jiménez MD [facility] (--) [address] [facility] [address] Mar 04, 2017 13:00 EDT Return Office Extended with Jean Munoz MD [facility] (--) [address] [facility] [address] Follow-up appointments and procedures Amb Consult/Follow Up Primary Care Physician Reason for Request: hospital follow up Expected Discharge Date (Inpatient Only): 01/04/2017 Authorizing Provider: Gina Kennedy MD Discharge Summary Completed By:Gina Kennedy MD Internal Medicine PGY-1 Attending attestation: I saw and examined Ms. Meadows on 01/04 and discussed this care plan with Dr. Kennedy, 30 minutes spent on discharge coordination. I will call PCP, Dr. Munoz today. I agreewith above documentation, my edits in purple. 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 Earliest Fill Date: 12/17/16 60 Tab 12/17/2016 01/12/2017 methylphenidate (RITALIN;METHYLIN) 10 mg tablet Take one tab in the afternoon for narcolepsy. Earliest Fill Date: 12/17/16 30 Tab 12/17/2016 01/12/2017 montelukast (SINGULAIR) 10 mg tabletIndications:Moder ate persistent [...] disorder, recurrent, severe without psychotic features ([facility]-CMS) Take 2 Tabs by mouth daily. 180 Tab 3 04/13/2016 05/22/2017 sumatriptan (IMITREX) 50 mg tabletIndications:Other type of migraine Take 1 tablet by mouth as needed for migraine. Daily maximum dose: 100 mg. Patient averages 12 headaches per month. 9 Tab 2 10/01/2016 01/07/2017 tamsulosin (FLOMAX) 0.4 mg capsuleIndications:Justinei jodi Take 1 Cap by mouth daily. 90 [...] 10/01/2016 03/04/2017 documented as of this encounter Ordered Prescriptions Prescription Sig Dispensed Refills Start Date End Da te blood glucose (BLOOD GLUCOSE TEST) test strips 1 Strip by misc (non-drug; combo route) route 2 times daily. 100 Each 01/04/2017 01/14/2017 metFORMIN (GLUCOPHAGE) 500 mg tablet Take 1 Tab by mouth 2 times daily. While on steroid taper 60 Tab 01/04/2017 06/01/2017 metFORMIN (GLUCOPHAGE) 500 mg tablet Take 1 Tab by mouth 2 times daily. While on steroid taper 26 Tab 01/04/2017 01/04/2017 predniSONE (DELTASONE) 10 mg tablet Taper as follows: Take 5 tabs (50 mg) for one more day then continue to decrease daily dose by 1 tab (10 mg) every 3 days 35 Tab 01/04/2017 03/03/2017 guaiFENesin (MUCINEX) 600 mg SR tablet Take 1 Tab by mouth 2 times daily. 30 Tab 01/04/2017 06/01/2017 documented in this encounter Discharge Disposition Disposition Code Departure Means Destination Home or Self Care documented in this encounter Progress Notes * Patrice Emerson, PT - 01/04/2017 1151 EDT [facility] Therapy[facility] Date of Service: 01/04/2017 A physical therapy consult order was received, the medical record was reviewed, and an examination was completed. Full note to follow. The recommendation for discharge is for home when medically ready. PATRICE EMERSON PT 01/04/2017 11:52 * Patrice Emerson, PT - 01/04/2017 1023 EDT [facility] Rehabilitation Therapy Acute Therapies [facility] Physical Therapy Initial Evaluation/Discontinue Note Date of Service: 01/04/2017 Reason for Referral: Evaluate and treat Precautions: Activity as tolerated SUBJECTIVE: I'm getting around much better. Pain: No acute pain reported during the interview, but pt reports chronic neck and low back pain OBJECTIVE: PatientProfile: Patient is a 56 y.o. female admitted on 12/27/2016 secondary to ACUTE HYPOXEMIC RESPFAILURE J96.01 Acute respiratory failure with hypoxia-J96.01[ICD-10-CM] The patient [facility] [address] Home environment Lives:with family ( and brother) Caregiver Support: 24-hour assist Equipment Available: Cane and Rolling walker Home Environment: house Home Layout: One story. Entry stairs: 2 with rails Prior Level of Function: Independent without assistive device Services prior to admission: None Work/Leisure: Retired Medical/Surgical History: Current: Patient Active Problem List Diagnosis ??? Severe [...] eyelid ??? Other disorders of eyelid ??? COPD exacerbation ??? Fibromyalgia ??? Laceration of right hand ??? Nausea ??? Acute hypoxemic respiratory failure Past: Past Medical History: Diagnosis Date ??? Abdominal [...] ANKLE FRACTURE SURGERY 04/01/10 left ankle [facility] ??? CERVICAL SPINE SURGERY 12/31/08 discectomy, fusion C4-7 Dr Dewitt ??? COLONOSCOPY 07/29/09 repeat 10 years ??? CYST INCISION AND DRAINAGE 09/17/10 left cheek ??? CYSTOSCOPY 02/14/13 ??? FINE NEEDLE ASPIRATION 09/19/10 left cheek ??? GASTRIC BYPASS SURGERY ??? GASTRIC FUNDOPLICATION 03/02/07 [facility] ??? HYSTERECTOMY, VAGINAL menorrhagia ??? SALPINGECTOMY 1982 ectopic ??? SHOULDER ARTHROSCOPY 10/15 left, with acromioplasty Per 12/27 H+P: HPI: Ms. Meadows is a 55 y/o female w/ PMH COPD (not currently on home O2), asthma, chronic back pain/fibromyalgia, narcolepsy, depression/anxiety, IBS, and GERD who presents to the ED today with 1 day of progressive SOB. She reports that starting last night she did not feel well - temperature to 99.9Fand several episodes of emesis. This morning, she again felt febrile and had a couple of episodes of emesis. Also started to develop worsening SOB. Her O2 sat this morning was 98%, but began to progressively decline throughout the day. ?? She was having a birthday libertarian at her house [facility] and several of the guests were smoking. Duringthe libertarian her SOB increased, and this is what prompted her presentation to the ED. Does endorse a dry, non-productive cough over the past few days. Denies any myalgias/arthralgias other than her usual aches and pains. She endorses excellent compliance with her COPD medications. She quit smoking 3 years ago but does live with her and son, both of whom smoke, occasionally indoors. She was evaluated by Dr. Virk in 2013 for her COPD - at that time PFTs revealed restriction/poor effort (FVC 1.86 - 54% predicted, FEV1 1.4 - 51% predicted, FEV1/FVC 94% predicted). CT chest at that time re vealed severe emphysema and GGOs and was negative for PE. ?? She denies any headaches, sore throat, rhinorrhea, chest pain, palpitations, abdominal pain, diarrhea, peripheral edema, or dysuria. She denies any recent travel, prolonged car/plane rides, personal/family h/o VTE, or known sick contacts. ?? In the ED she was hypoxemic to the mid-80%s. She was placed on BiPAP, which she could not tolerate and became more tachypneic. She was changed to HFNC at 100%. Labs were notable for K 3.3, neg trop, neg d-dimer, and ABG 7.39/34/49. CXR revealed worsening coarse reticular opacities in the mid and lower B/L lung dalal concerning for development of infection. She received duonebs x4, IV methylprednisolone 125 mg x1, and azithro and CTX. Blood cultures and influenza swab were ordered. She was transferred to the MICU for further management. CXR (12/26/16): ? Worsening coarse reticular opacities within the mid to lower lungs ? with superimposed airspace disease concerning for the development of ? pneumonia or atypical pulmonary edema in patient with possible ? underlying chronic interstitial disease. Some of the airspace ? disease has a rounded appearance and underlying pulmonary nodules ? cannot definitely be excluded. CT scan should be considered for ? further evaluation. Medications: Medications reviewed Arousal, Attention, and Cognition: Orientation: Alert Oriented to person, place, and time Cardiopulmonary: Vital Signs: Activity Heart rate (bpm) Blood Pressure (mmHg) Respiratory rate (breaths/min) Oxygen Sat/ Fractions of inspired Oxygen SPO2/FIO2 % Pre 75 108/53 95% on RA During Post 83 90/53 93% on RA Pt without symptomatic BP drop. Airway clearance: occasionally productive cough Breath sounds: CTA Integumentary/Anthropometric Characteristics: Palpation/Observation: No problem noted Posture: Forward head and Protracted shoulders Range of Motion and Joint Integrity: Active Range of Motion: Within normal limits Upper Quarter: Left Upper Extremity: Right Upper Extremity: Cervical Spine: not formally evaluated but grossly within normal limits as noted during mobility Lower Quarter: Left Lower Extremity: RightLower Extremity: Lumbar Spine: not formally evaluated but grossly within normal limits as noted during mobility Muscle Performance: Strength: Manual muscle test completed in: supine with head of bed up 30 degrees Upper Quarter: Left Upper Extremity: grossly 5/5 Right Upper Extremity: grossly 5/5 Cervical Spine: not formally evaluated but grossly within normal limits as noted during mobility Lower Quarter: Left Lower Extremity: grossly 5/5 Right Lower Extremity: grossly 5/5 LumbarSpine: not formally evaluated but grossly within normal limits as noted during mobility Sensation, Reflexes, and Nerve Integrity: Light Touch Sensation: Upper Quarter:Intact C2-T1 Lower Quarter: Intact for lower extremities Neuromotor Function/Development: No problems noted Balance, Mobility, and Gait: Balance: No loss of balance observed throughout physical therapy session Mobility: supine to sit: independence sit to supine: independence sit to stand: independence stand to sit: independence Gait: Assistive device/distance/assist/deviations: Pt ambulated 175 feet and 75 feet without assistive device and verbal cues for pacing and breathing technique/pacing. Pt with increased lateral trunks sway. Stairs: assist needed/number of steps: Demonstration provided for stair management technique and sequencing. Pt ascended and descended 3 steps with railing on the R, independence, and verbal cueing for sequencing and pacing. Self-Care, Home Management, Work, and Leisure: Outcomes: NA Informed Consent: The patient consented to the physical therapy evaluation. The patient agrees to and understands the physical therapy treatment plan and goals. Interventions Completed Today: Physical Therapy today at: 1120 Total treatment time: 35 minutes. Timed code treatment minutes: 15 Intervention included: Therapeutic activities: Patient educated in PT findings, safety awareness, plan of care, goals, and D/C recommendations. The patient was instructed in the importance of regaining independence through therapeutic exercises, increased participation in self care, and increased functional mobility. Recommended that patientrequest assist of nursing staff to mobilize OOB throughout all shifts. Patient instructed/performed in energy conservation techniques, self initiating rest periods coupled with pursed lip breathing with all functional activities. Patient also instructed/performed in planning movements and clustering activities to conserve energy. Patient instructed/performed deep breathing exercises and encouraged patient to cough in order to bring up secretions. Patient educated in the importance of upright positioning and progression of mobility. Recommended pt ambulate with nursing staff throughout the day. The patient was instructed in and performed 5 repetitions of incentive spirometry to 1600 cc with verbal cues for technique to maximize lung expansion and pacing. The patient was instructed in a cough technique and splinting and performed a cough with splinting 5 repetitions after incentive spirometry. The patient was educated in the use of an RPE scale as an objective measurement of activity tolerance. Pt rated activity performed today at 6-7/10 on RPE scale. Pt educated in D/C planning process and states confidence in her ability to return home when medically ready. Pt educated in appropriate activity pacing and progression for home. Pt educated in a walking program for use at home. Gait training: see above for cues provided during ambulation Patient/Family Education: Topic: Activity pacing/Energy conservation Balance Breathing exercises Discharge planning Gait Home program Positioning Role of therapy Safety Stairs Learner: patient Method: verbal and demonstration Barriers to Learning: none noted Outcome: verbalized understanding and returned demonstration Team Communication: Spoke with nursing before and after PT session ASSESSMENT: Upper Quarter Screen: No positive findings-no follow up needed Physical Therapy Diagnosis: This patient admitted with COPD exacerbation presents with a physical therapy diagnosis of decreased mobility, increased pain, impaired aerobic capacity, impaired gas exchange, and decreased activity tolerance. Patient benefited from skilled physical therapy to address these impairments which are likely related to pt's chronic medical issues, acute medical issues, and need for hospitalization leading to deconditioning from limited mobility. Physical Therapy Prognosis: Patient was appropriate for skilled PT evaluation and interventions today. Mrs. Meadows is a very pleasant woman who is agreeable to therapy interventions and is motivated to mobilize. She is able to demonstrate grossly independent mobility capabilities and states that her breathing feels near baseline. Based on pt's mobility capabilities, insight into limitations, receptiveness to therapy recommendations, and family support at home, recommend D/C home when medically ready. Short-Term Goals: ?? NA Long-Term Goals: 1-3 days GOALS MET ?? The patient will be able to transfer supine to sit and sit to supine with independence. ?? The patient will be able to transfer sit to stand and stand to sit with independence. ?? The patient will be able to ambulate with independence 200 feet with the least restrictive assistive device. ?? The patient will be able to perform stairs with independence. ?? The patient will be independent with recommended therapeutic exercises assisted via verbal cues as needed for proper technique. ?? The patient/caregiver will be aware of the recommendations provided and demonstrate an appropriate technique/understanding of the recommendations. ?? The patient will demonstrate appropriate activity pacing strategies with supervision. ?? The patient will be able to demonstrate use of the incentive spirometer with verbal cues for maximal lung expansion, proper technique, and pacing. ?? The patient will demonstrate above functional activities with HR<130, RR<36, SBP<180, RPE<5/10, and SpO2>92% with least amount of FiO2. PLAN: Discontinue Physical Therapy Recommended Discharge Destination: Home with family Recommended Discharge Services: No physical therapy follow-up services at this time Recommended Equipment Needs: No equipment necessary Other recommendations: No other consults recommended at this time Pager: [phone] PATRICE EMERSNO, PT 01/04/2017 10:23 * Chavo Del Castillo, RT - 01/04/2017 1020 EDT Home Oxygen Evaluation Name: Maria Del Rosario Meadows Date of : 1960 PCP: Jean Munoz Expiration Date: 01/06/2017 EXERCISE EVALUATION: O2 Sat on room air at rest: 96% O2 Sat during exercise on room air: 90% AT REST EVALUATION: O2 sat on room air taken at rest (awake). Recommendations: Patient doesn't qualify for Home O2 RT Namrata 01/04/2017 [email or web address] * Chavo Del Castillo, RT - 01/04/2017 0819 EDT Respiratory Progress Note Indications for Respiratory therapy: COPD exacerbation Data Vitals: Heart Rate: 75 BPM, Resp: 20, SpO2: 100 % FIO2/O2 Device: O2 Flow Rate (L/min): 1 l/min, , O2 Device: Nasal cannula, FIO2 %: 35 % RT Orders: Qid Duoneb Bid Dulera Action/Events 0750- Duoneb given followed with Dulera MDi. Tolerated well able to administer MDi with good technique including mouth rinse. Weaned O2 to 1 lpm 1200- Treatment given tolerated well Response/Results Continue as ordered. Encourage ambulation. RT Namrata 01/04/17 * Amarjit Camara MD - 01/03/2017 1210 EDT [facility] Department of Internal Medicine Progress Note Service Date: 01/03/2017 Admit Date: 12/27/2016 1:24 Reason for Admission 56 y.o. female admitted with a chief complaint of SOB and now with a principal diagnosis of COPD exacerbation . 24 Hour Events - No overnight events Subjective/Objective Subjective Today Maria Del Rosario appears well, she states her breathing feels improved, however she notes she has not exerted herself this hospital admission. She denies any acute complaints and is willing to try walking with her nurses today. No CP, SOB, ABD pain. Review of Systems 10 point review of systems performed with pertinent positives as above, otherwise negative unless noted above in Subjective Objective VITALS: BP 100/59 (BP Cuff Location: Right arm, Patient Position: Semi fowlers) Pulse 84 Temp 36.2 ??C (97.2 ??F) (Tympanic) Resp 20 Ht 162.6 cm (64.02) Wt 86.6 kg (190 lb 14.7 oz) LMP 01/11/1987 SpO2 95% BMI 32.75 kg/m2 24 hr Ranges: Temp: [35.2 ??C (95.4 ??F)-36.5 ??C (97.7 ??F)] (), Pulse: -- (), Resp: [17-20] (), BP: (100-120)/(55-75) (), SpO2: [93 %-97 %] () I&O: Intake/Output Summary (Last 24 hours) at 01/03/17 1210 Last data filed at 01/03/17 0536 Gross per 24 hour Intake 480 ml Output 925 ml Net -445 ml Physical Exam Gen: Elderly female, AAOx3, NAD HEENT: NCAT, EOMI, PERRL, MMM, no scleral icterus Neck: supple, no JVD CV: RRR, no m/r/g Pulm: CTAB, mild expiratory wheezes appreciated in lower lung dalal, decreased air movement in lower lung dalal, no w/r/r Abd: +BS, soft, NTND, no HSM Extrem: warm and well perfused, no cyanosis or edema Labs Glucose: Recent Labs 01/01/17 1235 01/01/17 1658 01/01/17 2100 01/02/17 0604 01/02/17 1247 01/02/17 1801 01/02/17 2156 01/03/17 0824 GLUCOSEFINGE 223* 295* 135* 138* 234* 214* 146* 138* BMP, Ca, Mg, Phos: Recent Labs 01/01/17 0329 01/02/17 1047 01/03/17 0538 NA 139 139 -- K 4.2 4.3 -- CL 99 101 -- CO2 30 29 -- BUN 26 18 -- CREATININE 0.55 0.54 -- MG 2.2 2.2 2.4 PHOS 4.0 2.9 4.5 CBC: Recent Labs 01/01/17 03201/02/17 1047 WBC 13.18* 10.49 RBC 4.02 3.81* HGB 12.7 11.9 HCT 36.6 35.1 MCV 91 92 PLT 305 323 Microbiology No results found for this or any previous visit (from the past 168 hour(s)). Imaging CXR (12/26); Bilateral mid to lower lung field opacities concerning for PNA Assessment/Plan Assessment Maria Del Rosario Meadows is a 56 y.o. with a PMH significant for COPD (not currently on home O2), asthma, chronic back pain/fibromyalgia, and narcolepsy who presents with 1 day of low grade fever and vomiting, as well as progressive SOB and wheezing. In the ED she has diffuse wheezing on examination requiring HFNC. Admitted to MICU for acute on chronic hypoxemic respiratory failure secondary to COPD exacerbation, which is likely secondary to an underlying viral or bacterial pulmonary infection. Oxygenation now improved to 2 L on NC and patient transferred to the internal medicine service for further management. Plan COPD excerbation: Likely 2/2 to viral pneumonia, now improving with downtrending oxygen requirements - Continue to wean O2 as tolerated - Goal SpO2 >88% - Continue oral prednisone, continue slow taper, now on 50 mg daily pl;an to reduce to 40 mg on 01/06 (reduce by 10 mg every 3 days) - Duoneb q4h scheduled - Dulera BID - Montelukast 10mg daily - Roflumilast 500 mcg daily - oral morphine solution PRN - Will complete CAP coverage complete this admission, hold off on further antibiotics - RSV panel negative for metapneumovirus, RSV and influ - PT eval and treat - Will encourage mobilization with nursing staff today ?? Prediabetes: HbA1c 6.1% - NPH 10 units daily with steroids (wean as steroids wean) - FSBG QID - Aspart 5 units with meals + SSI ?? Chronic Medical Conditions: Hx narcolepsy, chronic pain pain, fibromyalgia - Continue to hold home baclofen, doxycycline, norco, zolpidem, methylphenidate - Continue home pregabalin 300mg BID - Ropinirole 2mg PO qhs - Sertraline 200mg PO qhs - oxycodone 5 mg q6h prn (to replace home Vicodin) - Tylenol Q6 PRN for breakthrough pain Problem List Principal Problem: Acute hypoxemic respiratory failure Active Problems: COPD exacerbation Miscellaneous FEN: DIET REGULAR PPx: Lovenox 40 mg daily Code: Full Code Discharge Plan: Likely home early this week, plan for PT eval, maybe home O2 Consults: None Neel Armstrong MD Internal Medicine PGY-1 Pager #[phone] Attending Attestation: I have interviewed and examined the patient. I have personally reviewed the medication list. I have independently reviewed the lab results. I have discussed the case with the resident and agree with the findings and plan of care above. Anyadditions in blue. Date of service: 01/03/2017 Amarjit Camara MD * Kimmy Garza RT - 01/02/2017 1700 EDT Respiratory Progress Note Indications for Respiratory therapy: COPD exacerbation Data Vitals: Heart Rate: 80 BPM, Resp: 20, SpO2: 96 % FIO2/O2 Device: , , O2 Device: Nasal cannula, 1L RT Orders: Qid Duoneb Bid Dulera Action/Events Respiratory events; Pt brenda tx's well. Wheezes pre and post with pt stating the nebs are helping her. Response/Results Weaning and Toleration of treatments; Weaned to 1L RT Afsaneh 01/02/17 * Jeanette Virk MD - 01/02/2017 1026 EDT MICU DAILY PROGRESS NOTE Admit Date: 12/27/2016 Hospital day: LOS: 6 days Date of Service: 01/02/2017 CC: SOB Summary of Last 24hrs: - Stable on 4L via NC overnight Subjective: Patient feels so-so today. Breathing is definitely improved from earlier this week. Had 2 BMs yesterday. No abdominal pain, nausea, vomiting. Is having some wheezing this morning. Also has a cough. Objective: 01/01 0700 - 01/02 0659 In: 720 [P.O.:720] Out: 725 [Urine:725] Blood pressure 101/57, pulse 84, temperature 36.8 ??C (98.2 ??F), temperature source Tympanic, resp. rate 18, height 162.6 cm (64.02), weight 86.6 kg (190 lb 14.7 oz), last menstrual period 01/11/1987, SpO2 93 %. 35% FiO2 20L flow Exam: Gen: AAOx3. Calm and not in distress. Skin: Warm. Dry. No rashes or lesions. HEENT: NC/AT. Anicteric Sclera. Dry mucous membranes Pulm: Speaking in full sentences, good air movement. Loud musical expiratory wheeze throughout in anterior and posterior lung dalal. No crackles. Card: Regular rate and rhythm. S1, S2 normal. No murmurs, rubs, or gallops Abd: Soft. Non-distended. Non-tender. Ext: No edema. Neuro: Spontaneously moving bilateral upper and lower extremities without focal deficits Medications: Personally reviewed. Data Review: CBC: Recent Labs 12/31/1623 12/31/16 0548 01/01/17 0329 WBC 10.17 10.92 13.18* HGB 12.8 12.3 12.7 HCT 36.8 36.0 36.6 MCV 90 92 91 PLT 309 321 305 BMP: Recent Labs 12/31/16 0523 12/31/16 0548 01/01/17 0329 NA 139 139 139 K 3.6 4.7 4.2 CL 93* 101 99 CO2 35* 29 30 BUN 21 19 26 CREATININE 0.59 0.52 0.55 MG 2.2 2.2 2.2 PHOS 4.3 3.8 4.0 Radiology Images: No new imaging. Microbiology: Urine Legionella and Strep Antigens - Negative BCx x2 - No growth Respiratory Virus Panel - No RSV, influenza, parainfluenza ([facility]) Assessment: Ms. Meadows is a 55 year old woman with a history of COPD (no baseline O2 requirement, FEV1 65%), ?asthma, fibromyalgia, and narcolepsy who presented with SOB and wheezing with significant hypoxia requiring HFNC concerning for an acute infectious process triggering a COPD exacerbation. Also some suspicion for concurrent diastolic heart failure exacerbation, however, she appears to be now be euvolemic. Her respiratory status continues to slowly improve, allowing transfer to the floor today Plan: PULM: Acute hypoxemic respiratory failure due to COPD exacerbation due likely to an unidentified infectious organism, slowly improving -4L NC, wean as tolerated -Albuterol q4h PRN -Duoneb q4h scheduled -Dulera BID -Montelukast 10mg daily -Roflumilast 500mcg daily -Prednisone 60 mg daily day 3 - will plan for slow taper (reduce by 10 mg every 3 days) -morphine solution prn for dyspnea -mucinex BID CV: Possible diastolic dysfunction: net negative 5L this admission, bicarb increased with diuresis -aim for euvolemia RENAL: No active issues -goal net even -may need prn lasix to maintain euvolemia ID: CAP or viral pneumonia -s/p 5 days Azithromycin x5 -s/p 7 days CTX (received oral cefpodoxime for day 5 but will transition back to ceftriaxone to complete course) -f/u metapneumonvirus respiratory virus panel ENDO: Hx of prediabetes (HbA1c 6.1%) with worsened glucose control with steroids. -NPH 10 units daily with steroids (wean as steroids wean) -FSBG QID GI: No active issues -pantoprazole 40mg daily ([employer] on omeprazole) H/O: Leukocytosis likely stress + steroids -daily CBC NEURO/PSYCH: Hx narcolepsy, chronic pain pain, fibromyalgia -hold home baclofen, doxycycline, norco, zolpidem, methylphenidate -Resume home pregabalin 300mg BID -Ropinirole 2mg PO qhs -Sertraline 200mg PO qhs -oxycodone 5 mg q6h prn (to replace home Vicodin) -low dose oral morphine prn for dyspnea Headache: not consistent with her typical migraines and has received 7 doses of sumatriptan (monthly max is 8 doses). Likely related to high flow oxygen. -no more sumatriptan -judicious use of opiates (can contribute to rebound headaches) -Fioricet prn for headache -additional tylenol prn LINES: pIV - minimizing IV meds access has been an issue but trying to avoid PICC FEN: -Diet - carbohydrate consistent -Electrolytes - none -Fluids - None PPX: -GI - Pantoprazole -DVT - Enoxaparin 40mg SQ daily Code status: Full DISPO: Floor today Festus Arriaga MD PGY3 [phone] * Khushboo Martin, RT - 01/02/2017 0559 EDT Respiratory Consult/Progress Note Indications for Respiratory therapy: COPD Data Vitals: Heart Rate: 88 BPM, Resp: 22, SpO2: 98 % FIO2/O2 Device: O2 Flow Rate (L/min): 2.5 l/min, , O2 Device: Nasal cannula, RT Orders: QID Duoneb BID Dulera PRN Accuneb Protocol Scoring: Bronchodilator/Inhalation Therapy Frequency Bronchodialator - Clinical Indications: History of COPD Breath Sounds: Faint wheezing, decreased throughout Response: Mild response, increase subjective per ASTRONOMY INSTRUCTOR Pulse: <100 Resp Rate: 18-25 SOB: With exertion Total Score: 5 Comment:: Switch to QID and PRN neb tx Airway Clearance Therapy Frequency Airway Clearance - Clinical Indications: Productive cough Breath Sounds: Clear / diminished Sputum: Small (tsp) / None Consistency: None Cough Effort: Strong, productive Color: None Total Score: 1 Comment: Pt has strong productive cough and reports swallowing secretions when raised Hyperinflation Therapy Frequency Hyperinflation - Clinical Indications: Decreased breath sounds with increased FiO2 Breath Sounds: Diminished / crackles Surgery: No X-Ray / Atelectasis: No O2 Requirements: 2-4 L above baseline Mobility Status: Mobile / at baseline Total: 4 Comment: IS at bedside Action/Events Respiratory events; Weaned patient to 2.5L nasal cannula overnight. Patient does have diminished breath sounds with expiratory wheezes. She tolerated the Q4 Duoneb treatments well and reports that her home routine is PRN. Per protocol patient has been scoring for QID bronchodilator treatments and PRN. Switched to QID treatments and will continue to follow. Response/Results Weaning and Toleration of treatments; Removed HFNC from patient's room as she has not needed it overnight. Will continue to monitor and assess patient's respiratory status. Patient does well using the Dulera with spacer without any assistance. Khushboo Martin, RT 01/02/17 * Shavonne Morton RT - 01/01/2017 1736 EDT Respiratory Progress Note Indications for Respiratory therapy: COPD Data Vitals: Heart Rate: (!) 20 BPM, Resp: 20, SpO2: 93 % FIO2/O2 Device: O2 Flow Rate (L/min): 4.5 l/min, , O2 Device: Nasal cannula, FIO2 %: 35 % RT Orders: Q4 duo BID Dulera Action/Events Respiratory events; Pt weaned off HFNC to 4.5lpm nasal canula, pt tolerating this well. Pt has a good strong productivecough that she swallows. Continue with home routine meds and wean fio2 as tolerated. RT ANDRESSA 01/01/17 * Donato Benson MD - 01/01/2017 1551 EDT MICU DAILY PROGRESS NOTE Admit Date: 12/27/2016 Hospital day: LOS: 5 days Date of Service: 01/01/2017 CC: SOB Summary of Last 24hrs: - no acute events Subjective: Patient feels okay this morning. Has continued to wean slowly of HFNC. Has been getting up out of bed and had ospina removed yesterday. Headache is present but she does get some relief from Fioricet. She has been using oxycodone (in lieu of Vicodin) for her chronic pain. Continued wet cough but unable to clear her secretions fully. Denies fevers, chills, abdominal pain. Still without bowel movement and last bowel movement was on Wednesday. Objective: 12/31 1500 - 01/01 1459 In: 1130 [P.O.:1080] Out: 690 [Urine:690] Blood pressure 102/70, pulse 84, temperature 35.6 ??C (96.1 ??F), temperature source Tympanic, resp. rate 20, height 162.6 cm (64.02), weight 86.6 kg (190 lb 14.7 oz), last menstrual period 01/11/1987, SpO2 93 %. 35% FiO2 20L flow Exam: Gen: AAOx3. Calm and not in distress. Skin: Warm. Dry. No rashes or lesions. HEENT: NC/AT. Anicteric Sclera. Dry mucous membranes Pulm: Speaking in full sentences, good air movement. Loud musical expiratory wheeze throughout in anterior and posterior lung dalal. No crackles. Card: Regular rate and rhythm. S1, S2 normal. No murmurs, rubs, or gallops Abd: Soft. Non-distended. Non-tender. Ext: No edema. Neuro: Spontaneously moving bilateral upper and lower extremities without focal deficits Medications: Personally reviewed. Data Review: CBC: Recent Labs 12/30/16 0247 12/31/16 0523 01/01/17 0329 WBC 10.93 10.17 13.18* HGB 12.4 12.8 12.7 HCT 35.8 36.8 36.6 MCV 92 90 91 PLT 294 309 305 BMP: Recent Labs 12/30/16 0247 12/31/16 0523 01/01/17 0329 NA 139 139 139 K 4.2 3.6 4.2 CL 96 93* 99 CO2 32 35* 30 BUN 16 21 26 CREATININE 0.64 0.59 0.55 MG 1.9 2.2 2.2 PHOS 4.0 4.3 4.0 Radiology Images: No new imaging. Microbiology: Urine Legionella and Strep Antigens - Negative BCx x2 - NGTD Respiratory Virus Panel - No RSV, influenza, parainfluenza ([facility]neumovirus pending [facility]) Assessment: Ms. Meadows is a 55 year old woman with a history of COPD (no baseline O2 requirement, FEV1 65%), ?asthma, fibromyalgia, and narcolepsy who presented with SOB and wheezing with significant hypoxia requiring HFNC concerning for an acute infectious process triggering a COPD exacerbation. Also some suspicion for concurrent diastolic heart failure exacerbation, however, she appears to be now be euvolemic. Plan: PULM: Acute hypoxemic respiratory failure due to COPD exacerbation due likely to an infectious organism -HFNC 35 FiO2, 20 rate -Albuterol q4h PRN -Duoneb q4h scheduled -Dulera BID -Montelukast 10mg daily -Roflumilast 500mcg daily -Prednisone 60 mg daily day 2 - will plan for slow taper (reduce by 10 mg every 3 days) -morphine solution prn for dyspnea -mucinex BID CV: Possible diastolic dysfunction: net negative 5L this admission, bicarb increased with diuresis -aim for euvolemia RENAL: No active issues -goal net even -may need prn lasix to maintain euvolemia ID: CAP or viral pneumonia -s/p 5 days Azithromycin x5 -Ceftriaxone day 6/7 (received oral cefpodoxime for day 5 but will transition back to ceftriaxone to complete course) -f/u metapneumonvirus respiratory virus panel -f/u BCx ENDO: Hx of prediabetes (HbA1c 6.1%) with worsened glucose control with steroids. -NPH 10 units daily with steroids -FSBG QID GI: No active issues -pantoprazole 40mg daily ([employer] on omeprazole) H/O: Leukocytosis likely stress + steroids -daily CBC NEURO/PSYCH: Hx narcolepsy, chronic pain pain, fibromyalgia -hold home baclofen, doxycycline, norco, zolpidem, methylphenidate -Resume home pregabalin 300mg BID -Ropinirole 2mg PO qhs -Sertraline 200mg PO qhs -oxycodone 5 mg q6h prn (to replace home Vicodin) -low dose oral morphine prn for dyspnea Headache: not consistent with her typical migraines and has received 7 doses of sumatriptan (monthly max is 8 doses). Likely related to high flow oxygen. -no more sumatriptan -judicious use of opiates (can contribute to rebound headaches) -Fioricet prn for headache -additional tylenol prn LINES: pIV - minimizing IV meds access has been an issue but trying to avoid PICC FEN: -Diet - carbohydrate consistent -Electrolytes - none -Fluids - None PPX: -GI - Pantoprazole -DVT - Enoxaparin 40mg SQ daily Code status: Full DISPO: Uncertain at this time; slowly weaning off oxygen; likely stable with transfer to the floor tomorrow Emily Santos MD Internal Medicine PGY3 * Nicki Cunha - 01/01/2017 0906 EDT MEDICAL STUDENT MICU PROGRESS NOTE Date of admission: 12/27/2016 1:24 Reason for admission: Acute hypoxemic respiratory failure Code status: Full Code Brief History Maria Del Rosario Meadows is a 55 y.o. Female with a PMH of COPD (not on home O2) who was admitted to the MICU on 12/27 for acute hypoxemic respiratory failure 2/2 COPD vs asthma exacerbation in the setting of probable viral infection with pulmonary edema requiring HFNC since admission. No acute overnight events. Subjective Pt thinks her headaches are well controlled with fioricet. States that she has a productive cough. She denies any difficulty breathing and states that she moves around well now that she no longer hasa ospina. Physical Exam VS: BP 102/70 Pulse 84 Temp 35.6 ??C (96.1 ??F) (Tympanic) Resp 20 Ht 162.6 cm (64.02) Wt 86.6 kg (190 lb 14.7 oz) LMP 01/11/1987 SpO2 95% BMI 32.75 kg/m2 HFNC 55% FiO2 on 30L General: alert, oriented, not in distress HEENT: no pallor/icterus PULMONARY: Wheezes in all lung dalal, no crackles CVS: RRR, normal S1 and S2, no murmurs. Radial & dorsalis pedis pulses 2+ bilaterally, no pedaledema GI: +BS, nondistended, soft, nontender to palpation Derm: warm, no rash Neuro: CNII - XII grossly intact, moving all 4 extremities, no focal deficits noted I&O: Intake/Output Summary (Last 24 hours) at 01/01/17 1500 Last data filed at 01/01/17 0900 Gross per 24 hour Intake 1130 ml Output 690 ml Net 440 ml CBC: Recent Labs 12/30/16 0247 12/31/16 0523 01/01/17 0329 WBC 10.93 10.17 13.18* RBC 3.91 4.07 4.02 HGB 12.4 12.8 12.7 HCT 35.8 36.8 36.6 MCV 92 90 91 MCH 31.7 31.4 31.6 MCHC 34.6 34.8 34.7 PLT 294 309 305 BMP: Recent Labs 12/30/16 0247 12/31/16 0523 01/01/17 0329 NA 139 139 139 K 4.2 3.6 4.2 CL 96 93* 99 CO2 32 35* 30 BUN 16 21 26 CREATININE 0.64 0.59 0.55 MG 1.9 2.2 2.2 PHOS 4.0 4.3 4.0 Phos: 4.0 Ma.2 Glucose: 130-370 No new imaging Assessment Maria Del Rosario Meadows is a 55 y.o. Female with a PMH of COPD (not on home O2) who was admitted to the MICU on 12/27 for acute hypoxemic respiratory failure 2/2 COPD vs asthma exacerbation in the setting of presumed viral PNA with pulmonary edema, requiring HFNC. Plan PULM: Acute hypoxemic respiratory failure due to COPD vs asthma exacerbation due likely to an infectious organism. Pt may have some component of diastolic HF. Echo notable for mildly increased pulmonary pressures. - Duoneb q4h scheduled - Dulera BID - Montelukast 10mg daily - Roflumilast 500mcg daily - Prednisone 60mg PO q24h, start taper in a few days for a course of 10-14d - Holding lasix today as pt seems euvolemic. Consider lasix 40 IV x1 tomorrow. - Morphine 2.5-4mg PO q2h PRN for SOB ?? CV: No active issues -CTM ?? RENAL: No active issues -Hold home tamsulosin ?? ID: CAP or viral pneumonia - s/p 5 days azithromycin - CTX restarted; day 7/ ?? ENDO: No active issues; hemoglobin A1C 6.1. At risk hyperglycemia with steroids - FSBG QID - Aspart with meals ?? GI: No active issues -pantoprazole 40mg daily ([employer] on omeprazole) ?? H/O: No active issues -daily CBC ?? NEURO/PSYCH: Hx narcolepsy, chronic pain pain, fibromyalgia. Pt has had headaches since admission, though they do not have the same attributes as her typical migraines. Has had sumatriptan x 7 since admission. She attributes GABRIEL to HFNC and caffiene rebound GABRIEL. -hold home baclofen, doxycycline, norco, zolpidem, methylphenidate -home pregabalin 300mg BID -Ropinirole 2mg PO qhs -Sertraline 200mg PO qhs - Headaches: wean O2 as able, fiorcet 1 tab q4h PRN - Oxycodone 5mg PO q6h PRN for chronic pain ?? LINES: pIV, ospina ?? FEN: -Diet - Carbconsistent ?? PPX: -GI: [employer] Pantoprazole -DVT: Enoxaparin 40mg SQ daily ?? Code status: Full; pt ok with intubation DISPO: Uncertain at this time ELISE Myers Acting Logistics Management Specialist 01/01/2017 15:00 * Bassam Gates, RT - 01/01/2017 0601 EDT Respiratory Progress Note Indications for Respiratory therapy:HFNC/COPD Data Vitals: Heart Rate: 85 BPM, Resp: 19, SpO2: 97 % FIO2/O2 Device: O2 Flow Rate (L/min): 30 l/min, , O2 Device: High flow nasal cannula, FIO2 %: 45 % RT Orders: HFNC continuous Q4 duoneb Dulera BID Q4 eval Action/Events Respiratory events; Pt remains on HFNC. Tolerating nebs well. Pt has a good strong loose cough, but swallows secretionsso JANUARY. Continue to wean as tolerated. Bassam Gates, RT 01/01/17 * Shavonne Morton, RT - 12/31/2016 1642 EDT Respiratory Progress Note Indications for Respiratory therapy:HFNC/COPD Data Vitals: Heart Rate: 87 BPM, Resp: 20, SpO2: 96 % FIO2/O2 Device: O2 Flow Rate (L/min): 30 l/min, , O2 Device: High flow nasal cannula, FIO2 %: 45 % RT Orders: HFNC continuous Q4 duoneb Dulera BID Q4 eval Action/Events Respiratory events; Pt remains on HFNC but has been able to wean slightly today. Tolerating nebs well. Pt has a good strong loose cough, but swallows secretions so JANUARY. Continue to wean as tolerated. SHAVONNE MORTON, 12/31/16 * Yesica Edwards CSW - 12/31/2016 1401 EDT Case management note. Checked in w/ patient today. She says she is feeling better. Her and brother will visit later today, parking passes provided. No other needs identified. Gail Edwards, [id number] * Donato Benson MD - 12/31/2016 1201 EDT MICU DAILY PROGRESS NOTE Admit Date: 12/27/2016 Hospital day: LOS: 4 days Date of Service: 12/31/2016 CC: SOB Summary of Last 24hrs: - ongoing high HFNC needs - no acute events Subjective: Patient feels okay this morning. Had some desaturations when FiO2 decreased to 45%. Her headache improved with Fioricet but is still present. She has been using oxycodone (in lieu of Vicodin) for herchronic pain. She has not required any oral morphine for her dyspnea. Continued wet cough but unable to clear her secretions fully. Denies fevers, chills, abdominal pain. Last bowel movement on Wednesday. Objective: 12/30 0700 - 12/31 0659 In: 1080 [P.O.:1080] Out: 1820 [Urine:1820] Blood pressure 104/70, pulse 89, temperature (!) 35.3 ??C (95.5 ??F), temperature source Tympanic, resp. rate 20, height 162.6 cm (64.02), last menstrual period 01/11/1987, SpO2 97 %. 55% FiO2 35L flow Exam: Gen: AAOx3. Sitting up in recliner. Calm and not in distress. Skin: Warm. Dry. No rashes or lesions. HEENT: NC/AT. Anicteric Sclera. Dry mucous membranes Pulm: Speaking in full sentences, fair air movement. Significant expiratory wheeze throughout anteriorly and posteriorly. No crackles. Card: Regular rate and rhythm. S1, S2 normal. No murmurs, rubs, or gallops Abd: Soft. Non-distended. Non-tender. Ext: No edema. Neuro: Spontaneously moving bilateral upper and lower extremities without focal deficits Medications: Personally reviewed. Data Review: CBC: Recent Labs 12/29/1620212/30/1624612/31/16 0523 WBC 13.96* 10.93 10.17 HGB 11.7 12.4 12.8 HCT 33.6* 35.8 36.8 MCV 91 92 90 PLT 272 294 309 BMP: Recent Labs 12/29/1620212/30/1624612/31/16 0523 NA 141 139 139 K 4.2 4.2 3.6 CL 102 96 93* CO2 29 32 35* BUN 13 16 21 CREATININE 0.57 0.64 0.59 MG 2.1 1.9 2.2 PHOS 3.7 4.0 4.3 Radiology Images: No new imaging. Microbiology: Urine Legionella and Strep Antigens - Negative BCx x2 - NGTD Respiratory Virus Panel - No RSV, influenza, parainfluenza ([facility]) Assessment: Ms. Meadows is a 55 year old woman with a history of COPD (no baseline O2 requirement, FEV1 65%), ?asthma, fibromyalgia, and narcolepsy who presented with SOB and wheezing with significant hypoxia requiring HFNC concerning for an acute infectious process triggering a COPD exacerbation. Also some suspicion for concurrent diastolic heart failure exacerbation, however, she appears to be approachingeuvolemia. Plan: PULM: Acute hypoxemic respiratory failure due to COPD exacerbation due likely to an infectious organism -HFNC 55 FiO2, 35 rate -Albuterol q4h PRN -Duoneb q4h scheduled -Dulera BID -Montelukast 10mg daily -Roflumilast 500mcg daily -Prednisone 60 mg daily day 2 - will plan for slow taper -diurese as below -morphine solution prn for dyspnea -mucinex BID CV: Possible diastolic dysfunction: net negative 5L this admission, bicarb increasing to 35 -discontinue lasix and aim for euvolemia RENAL: No active issues -discontinue lasix -goal net even ID: CAP or viral pneumonia -s/p 5 days Azithromycin x5 -Ceftriaxone day 5/7 (received oral cefpodoxime for day 5 but will transition back to ceftriaxone to complete course) -f/u metapneumonvirus respiratory virus panel -f/u BCx -attempt to remove ospina in next 24 to 48 hrs ENDO: No active issues. At risk hyperglycemia with steroids. HbA1c 6.1% consistent with prediabetes. -FSBG QID GI: No active issues -pantoprazole 40mg daily ([employer] on omeprazole) H/O: Leukocytosis likely stress + steroids -daily CBC NEURO/PSYCH: Hx narcolepsy, chronic pain pain, fibromyalgia -hold home baclofen, doxycycline, norco, zolpidem, methylphenidate -Resume home pregabalin 300mg BID -Ropinirole 2mg PO qhs -Sertraline 200mg PO qhs -oxycodone 5 mg q6h prn (to replace home Vicodin) -low dose oral morphine prn for dyspnea Headache: not consistent with her typical migraines and has received 7 doses of sumatriptan (monthly max is 8 doses). Likely related to high flow oxygen. -no more sumatriptan -judicious use of opiates (can contribute to rebound headaches) -Fioricet prn for headache -additional tylenol prn LINES: pIV - minimizing IV meds access has been an issue but trying to avoid PICC FEN: -Diet - regular -Electrolytes - none -Fluids - None PPX: -GI - Pantoprazole -DVT - Enoxaparin 40mg SQ daily Code status: Full DISPO: Uncertain at this time; slowly weaning off oxygen Emily Santos MD Internal Medicine PGY3 * Nicki Cunha - 12/31/2016 0820 EDT MEDICAL STUDENT MICU PROGRESS NOTE Date of admission: 12/27/2016 1:24 Reason for admission: Acute hypoxemic respiratory failure Code status: Full Code Brief History Maria Del Rosario Meadows is a 55 y.o. Female with a PMH of COPD (not on home O2) who was admitted to the MICU on 12/27 for acute hypoxemic respiratory failure 2/2 COPD vs asthma exacerbation in the setting of probable viral infection with pulmonary edema requiring HFNC since admission. 24 hour events - Pt's GABRIEL continued, now s/p sumatriptan x 7 since admission. - Pt's pain management changed to oxycodone for chronic pain coverage with prn morphine solution for SOB. - Increased O2 requirements overnight Subjective Pt notes that GABRIEL improved with reduction in HFNC and fioricet. She thinks she was lying on top of the tubing for HFNC, explaining the need for increase in HFNC settings. She denies SOB at rest, CP, abd pain, or LE swelling. She reports a rattling feeling in her chest. Last BM on Wednesday, and pt denies feeling constipated. Physical Exam VS: BP 113/70 Pulse 89 Temp 35.8 ??C (96.4 ??F) (Tympanic) Resp 20 Ht 162.6 cm (64.02) LMP 01/11/1987 SpO2 96% HFNC 55% FiO2 on 30L General: alert, oriented, not in distress HEENT: no pallor/icterus PULMONARY: Wheezes in all lung dalal, bibasilar crackles to the middle lobes CVS: RRR, normal S1 and S2, no murmurs. Radial & dorsalis pedis pulses 2+ bilaterally, no pedaledema GI: +BS, nondistended, soft, nontender to palpation Derm: warm, no rash Neuro: CNII - XII grossly intact, moving all 4 extremities, no focal deficits noted I&O: Intake/Output Summary (Last 24 hours) at 12/31/16 0826 Last data filed at 12/31/16 0700 Gross per 24 hour Intake 720 ml Output 1850 ml Net -1130 ml UOP 1820 CBC: Recent Labs 12/29/16 0203 12/30/16 0247 12/31/16 0523 WBC 13.96* 10.93 10.17 RBC 3.68* 3.91 4.07 HGB 11.7 12.4 12.8 HCT 33.6* 35.8 36.8 MCV 91 92 90 MCH 31.8 31.7 31.4 MCHC 34.8 34.6 34.8 PLT 272 294 309 BMP: Recent Labs 12/29/16 0203 12/30/16 0247 12/31/16 0523 NA 141 139 139 K 4.2 4.2 3.6 CL 102 96 93* CO2 29 32 35* BUN 13 16 21 CREATININE 0.57 0.64 0.59 MG 2.1 1.9 2.2 PHOS 3.7 4.0 4.3 bicarb increased from 24 at admission (slow uptrend) Phos: 4.3 Ma.2 Glucose: 140-270, required 12 u aspart with meals yesterday Hgb A1C: 6.1 No new imaging Assessment Maria Del Rosario Meadows is a 55 y.o. Female with a PMH of COPD (not on home O2) who was admitted to the MICU on 12/27 for acute hypoxemic respiratory failure 2/2 COPD vs asthma exacerbation in the setting of presumed viral PNA with pulmonary edema, requiring HFNC. Plan PULM: Acute hypoxemic respiratory failure due to COPD vs asthma exacerbation due likely to an infectious organism. Crackles heard on exam, and pt may have some component of diastolic HF. Echo notablefor mildly increased pulmonary pressures. - Duoneb q4h scheduled - Dulera BID - Montelukast 10mg daily - Roflumilast 500mcg daily - Prednisone 60mg PO q24h, taper starting in a few days - Lasix 40mg IV x1 today; consider acetazolamide if pt appears to be hypervolemic as pt developing metabolic alkalosis from lasix use - Morphine 2.5-4mg PO q2h PRN for SOB ?? CV: No active issues -CTM ?? RENAL: No active issues -Hold home tamsulosin ?? ID: CAP or viral pneumonia - s/p 5 days azithromycin - CTX changed to cefpodoxime; day 5/7 ?? ENDO: No active issues. At risk hyperglycemia with steroids - FSBG QID - Aspart with meals ?? GI: No active issues -pantoprazole 40mg daily ([employer] on omeprazole) ?? H/O: No active issues -daily CBC ?? NEURO/PSYCH: Hx narcolepsy, chronic pain pain, fibromyalgia. Pt has had headaches since admission, though they do not have the same attributes as her typical migraines. Has had sumatriptan x 7 since admission. She attributes GABRIEL to HFNC and caffiene rebound GABRIEL. -hold home baclofen, doxycycline, norco, zolpidem, methylphenidate -home pregabalin 300mg BID -Ropinirole 2mg PO qhs -Sertraline 200mg PO qhs - Headaches: wean O2 as able, fiorcet 1 tab q4h PRN - Oxycodone 5mg PO q6h PRN for chronic pain ?? LINES: pIV, ospina ?? FEN: -Diet - Regular ?? PPX: -GI: [employer] Pantoprazole -DVT: Enoxaparin 40mg SQ daily ?? Code status: Full; pt ok with intubation DISPO: Uncertain at this time ELISE Myers Acting Logistics Management Specialist 12/31/2016 8:26 * Carmita Morelos, RT - 12/31/2016 0539 EDT Respiratory Progress Note Indications for Respiratory therapy: COPD Exacerbation Data Vitals: Heart Rate: 87 BPM, Resp: 20, SpO2: 92 % FIO2/O2 Device: O2 Flow Rate (L/min): 30 l/min, , O2 Device: High flow nasal cannula, FIO2 %: 55 % RT Orders: HFNC Resp Q4 Eval Duoneb Q4 Dulera BID PRN Albuterol Action/Events Respiratory events; Pt is tolerating HFNC well, tried to wean FIO2 this morning to 45% but pt desating into mid 80s, [id number] to 55% . Response/Results Will continue to monitor pt. CAMRITA MORELOS, RT 12/31/16 * Kavita Harris RT - 12/30/2016 2018 EDT Respiratory Progress Note Indications for Respiratory therapy: COPD Exacerbation Data Vitals: Heart Rate: 87 BPM, Resp: 18, SpO2: 91 % FIO2/O2 Device: O2 Flow Rate (L/min): 30 l/min, , O2 Device: High flow nasal cannula, FIO2 %: 50 % RT Orders: HFNC Resp Q4 Eval Duoneb Q4 Dulera BID PRN Albuterol Action/Events Respiratory events; Pt still doing well on 30L/M HFNC fiO2 50%. Pt states her coughs are productive and she is swallowing secretions. Pt reports improvement in her breathing post tx. 2235-Pt sats dropped to 84%. Pt had dislodged her HFNC a little. Pt also coughed and swallowed somesecretions. Sats now 95% on 30L/50% fiO2. 2243-Sats dropped again to 80%. Increased fiO2 to 60%. Sats now 93%. Response/Results Will continue to monitor pt. RT Abraham 12/30/16 * Sukhwinder Desouza RT - 12/30/2016 1409 EDT Respiratory Progress Note Indications for Respiratory therapy: COPD Exacerbation Data Vitals: Heart Rate: 87 BPM, Resp: 23, SpO2: 93 % FIO2/O2 Device: O2 Flow Rate (L/min): 30 l/min, , O2 Device: High flow nasal cannula, FIO2 %: 50 % RT Orders: HFNC Resp Q4 Eval Duoneb Q4 Dulera BID PRN Albuterol Action/Events Respiratory events; Pt feels better with decrease in flow from 45 to 30L/M on HFNC. Bronchodilators do help increase aeration for pt. Response/Results Weaning and Toleration of treatments; RT DONIS 12/30/16 * Donato Benson MD - 12/30/2016 1151 EDT MICU DAILY PROGRESS NOTE Admit Date: 12/27/2016 Hospital day: LOS: 3 days Date of Service: 12/30/2016 CC: SOB Summary of Last 24hrs: - ongoing high HFNC needs - increased headache overnight for which she received sumatriptan and morphine Subjective: Patient feels improved with her breathing (however, continues to desat with significant movement). Her headache was 10/10 yesterday, which she attributed to flow of oxygen - this immediately subsidedafter turning flow down to 30. She endorses that this does not feel like her usual migraines. Has been receiving morphine for dyspnea. Has ongoing chronic pain but no different from her baseline. Continued wet cough but unable to clear her secretions fully. Denies fevers, chills, abdominal pain. Objective: 12/29 699 - 12/30 0659 In: 2004 [P.O.:1405] Out: 2600 [Urine:2600] Blood pressure 103/61, pulse (!) 114, temperature 35.8 ??C (96.4 ??F), temperature source Tympanic,resp. rate 23, height 162.6 cm (64.02), last menstrual period 01/11/1987, SpO2 96 %. 50% FiO2 30L flow Exam: Gen: AAOx3. Sitting up in recliner. Calm and not in distress Skin: Warm. Dry. No rashes or lesions HEENT: NC/AT. Anicteric Sclera. Dry mucous membranes Pulm: Speaking in full sentences, fair air movement. Significant inspiratory and expiratory wheezesanteriorly and posteriorly. No crackles. Card: Regular rate and rhythm. S1, S2 normal. No murmurs, rubs, or gallops Abd: Soft. Non-distended. Non-tender. Ext: No edema. Neuro: Spontaneously moving bilateral upper and lower extremities without focal deficits Medications: Personally reviewed. Data Review: CBC: Recent Labs 12/28/16 0400 12/29/16 0203 12/30/16 0247 WBC 17.86* 13.96* 10.93 HGB 12.4 11.7 12.4 HCT 35.6 33.6* 35.8 MCV 91 91 92 PLT 278 272 294 BMP: Recent Labs 12/28/16 0400 12/29/16 0203 12/30/16 0247 NA 143 141 139 K 4.4 4.2 4.2 CL 108 102 96 CO2 25 29 32 BUN 10 13 16 CREATININE 0.51* 0.57 0.64 MG 2.5 2.1 1.9 PHOS 3.5 3.7 4.0 Radiology Images: No new imaging. Microbiology: Urine Legionella and Strep Antigens - Negative BCx x2 - NGTD Respiratory Virus Panel - No RSV, influenza, parainfluenza, viral swab still pending (?metapneumovirus) Assessment: Ms. Meadows is a 55 year old woman with a history of COPD (no baseline O2 requirement, FEV1 65%), ?asthma, fibromyalgia, and narcolepsy who presented with SOB and wheezing with significant hypoxia requiring HFNC concerning for an acute infectious process triggering a COPD exacerbation. Also some suspicion for concurrent diastolic heart failure exacerbation. Plan: PULM: Acute hypoxemic respiratory failure due to COPD exacerbation due likely to an infectious organism -HFNC 50 FiO2, 30 rate -Albuterol q4h PRN -Duoneb q4h scheduled -Dulera BID -Montelukast 10mg daily -Roflumilast 500mcg daily -Methylprednisolone 60mg IV daily - transition to prednisone 60 mg daily starting tomorrow with plan for -consider CT chest when respiratory status stable to work up pulmonary nodules -diurese as below -morphine solution prn for dyspnea CV: No issues -discontinue telemetry due to no acute issues RENAL: No active issues -diurese with lasix 40 mg IV BID - nearing euvolemia so will readdress lasix requirements tomorrow -goal net negative 500 ml ID: CAP or viral pneumonia -Azithromycin x5 days - day 5/5 -Ceftriaxone s/p 4 days, transition to oral cefpodixime to complete 7 day course -f/u Respiratory virus panel -f/u BCx -f/u SCx ENDO: No active issues. At risk hyperglycemia with steroids -FSBG QID GI: No active issues -pantoprazole 40mg daily ([employer] on omeprazole) H/O: Leukocytosis likely stress + steroids -daily CBC NEURO/PSYCH: Hx narcolepsy, chronic pain pain, fibromyalgia -hold home baclofen, doxycycline, norco, zolpidem, methylphenidate -Resume home pregabalin 300mg BID -Ropinirole 2mg PO qhs -Sertraline 200mg PO qhs -oxycodone 5 mg q6h prn (to replace home Vicodin) -oral morphine prn for dyspnea Headache: not consistent with her typical migraines and has received 7 doses of sumatriptan (monthly max is 8 doses). Likely related to high flow oxygen. -no more sumatriptan -judicious use of opiates (can contribute to rebound headaches) -Fioricet prn for headache -additional tylenol prn LINES: pIV - changing IV meds to oral to minimize use of IV; access has been an issue but trying toavoid PICC FEN: -Diet - regular -Electrolytes - none -Fluids - None PPX: -GI - Pantoprazole -DVT - Enoxaparin 40mg SQ daily Code status: Full DISPO: Uncertain at this time; slowly weaning off oxygen Emily Santos MD Internal Medicine PGY3 * Nicki Cunha - 12/30/2016 0844 EDT MEDICAL STUDENT MICU PROGRESS NOTE Date of admission: 12/27/2016 1:24 Reason for admission: Acute hypoxemic respiratory failure Code status: Full Code Brief History Maria Del Rosario Meadows is a 55 y.o. Female with a PMH of COPD (not on home O2) who was admitted to the MICU on 12/27 for acute hypoxemic respiratory failure 2/2 COPD vs asthma exacerbation in the setting of possible infection with pulmonary edema requiring HFNC 24 hour events - Pt's GABRIEL continued, now s/p sumatriptan x 7 since admission Subjective Pt notes that headaches have improved since RT reduced HFNC. She denies SOB at rest, CP, abd pain, or LE swelling. Physical Exam VS: BP 112/71 Pulse (!) 114 Temp 35.8 ??C (96.4 ??F) (Tympanic) Resp 29 Ht 162.6 cm (64.02) LMP 01/11/1987 SpO2 96% HFNC 50% FiO2 on 30L General: alert, oriented, not in distress HEENT: no pallor/icterus PULMONARY: Wheezes in all lung dalal, no crackles appreciated CVS: RRR, normal S1 and S2, no murmurs. Radial & dorsalis pedis pulses 2+ bilaterally, no pedaledema GI: +BS, nondistended, soft, nontender to palpation Derm: warm, no rash Neuro: CNII - XII grossly intact, moving all 4 extremities, no focal deficits noted I&O: Intake/Output Summary (Last 24 hours) at 12/30/16 0845 Last data filed at 12/30/16 0800 Gross per 24 hour Intake 1765 ml Output 2640 ml Net -875 ml UOP 2600 CBC: Recent Labs 12/28/16 0400 12/29/16 0203 12/30/16 0247 WBC 17.86* 13.96* 10.93 RBC 3.93 3.68* 3.91 HGB 12.4 11.7 12.4 HCT 35.6 33.6* 35.8 MCV 91 91 92 MCH 31.6 31.8 31.7 MCHC 34.8 34.8 34.6 PLT 278 272 294 BMP: Recent Labs 12/28/16 0400 12/29/16 0203 12/30/16 0247 NA 143 141 139 K 4.4 4.2 4.2 CL 108 102 96 CO2 25 29 32 BUN 10 13 16 CREATININE 0.51* 0.57 0.64 MG 2.5 2.1 1.9 PHOS 3.5 3.7 4.0 No new imaging Assessment Maria Del Rosario Meadows is a 55 y.o. Female with a PMH of COPD (not on home O2) who was admitted to the MICU on 12/27 for acute hypoxemic respiratory failure 2/2 COPD vs asthma exacerbation with pulmonary edema, requiring HFNC. Plan PULM: Acute hypoxemic respiratory failure due to COPD vs asthma exacerbation due likely to an infectious organism. Crackles heard on exam, and pt may have some component of diastolic HF. Echo yesterday notable for mildly increased pulmonary pressures -Duoneb q4h scheduled -Dulera BID -Montelukast 10mg daily -Roflumilast 500mcg daily - Prednisone 60mg PO q24h - Lasix 20mg IV BID; goal net negative 500cc - Morphine 2.5-4mg PO q2h PRN for SOB ?? CV: Tachycardia likely from dyspnea; chest pressure stable since admission with unremarkable ECG atadmission -CTM ?? RENAL: No active issues -Hold home tamsulosin ?? ID: CAP or viral pneumonia -Azithromycin x day 5/5; switched to PO - CTX changed to cefpodoxime; day 4/7 ?? ENDO: No active issues. At risk hyperglycemia with steroids -FSBG QID - SSI ?? GI: No active issues -pantoprazole 40mg daily ([employer] on omeprazole) ?? H/O: Leukocytosis likely stress + steroids -daily CBC ?? NEURO/PSYCH: Hx narcolepsy, chronic pain pain, fibromyalgia. Pt has had headaches (migraine with aura) for the past day. Has had sumatriptan x 3 since admission. She attributes GABRIEL to HFNC and caffiene withdrawal. -hold home baclofen, doxycycline, norco, zolpidem, methylphenidate -home pregabalin 300mg BID -Ropinirole 2mg PO qhs -Sertraline 200mg PO qhs - Headaches: wean O2 as able, fiorcet 1 tab q4h PRN - Oxycodone 5mg PO q6h PRN for chronic pain ?? LINES: pIV ?? FEN: -Diet - Regular ?? PPX: -GI - Pantoprazole -DVT - Enoxaparin 40mg SQ daily ?? Code status: Full; pt ok with intubation DISPO: Uncertain at this time ELISE Myers Acting Logistics Management Specialist 12/30/2016 8:45 * Manjeet Jasmine RT - 12/30/2016 0600 EDT Respiratory Progress Note Indications for Respiratory therapy: HFNC/ Resp distress Data Vitals: Heart Rate: 82 BPM, Resp: 23, SpO2: 97 % FIO2/O2 Device: Continuous HFNC O2 Flow Rate (L/min): 45 l/min, , O2 Device: High flow nasal cannula, FIO2 %: 60 % RT Orders: Q4 duoneb Q4 respiratory evaluation BID dulera Action/Events PT was wheezy overnight but took treatments well Response/Results Pt was weaned to 60% o2 overnight RT MILADIS 12/30/16 * Donato Benson MD - 2016 1128 EDT MICU DAILY PROGRESS NOTE Admit Date: 12/27/2016 Hospital day: LOS: 1 day Date of Service: 2016 CC: SOB Summary of Last 24hrs: - ongoing high HFNC needs - otherwise no significant events Subjective: Patient still feels dyspneic, but continues to feel better as compared to yesterday. Continued wet cough but unable to clear her secretions fully. Her headache persists but it is improved and she rates it a 4/10 - some caffeine did help. She reports an episode of vomiting - sounds post-tussive and not clear whether she vomited stomach contents or just sputum. Denies fevers, chills, abdominal pain. Objective: 12/27 0700 - 12/28 0659 In: 1100 [P.O.:800] Out: 2510 [Urine:2510] Blood pressure 103/63, pulse (!) 114, temperature 35.8 ??C (96.4 ??F), temperature source Tympanic,resp. rate 23, height 162.6 cm (64.02), last menstrual period 01/11/1987, SpO2 94 %. 60% FiO2 40L flow Exam: Gen: AAOx3. Calm and not in distress Skin: Warm. Dry. No rashes or lesions HEENT: NC/AT. Anicteric Sclera. Dry mucous membranes Pulm: Speaking in full sentences, fair air movement. No wheezing this morning. Crackles in bases bilaterally to level of mid-lung zone. Card: Tachycardic. Normal rhythm. S1, S2 normal. No murmurs, rubs, or gallops Abd: Soft. Non-distended. Non-tender. Ext: No edema. Neuro: Spontaneously moving bilateral upper and lower extremities without focal deficits Medications: Personally reviewed. Data Review: CBC: Recent Labs 12/27/16 0558 12/28/16 0400 12/29/16 0203 WBC 14.18* 17.86* 13.96* HGB 11.8 12.4 11.7 HCT 33.7* 35.6 33.6* MCV 90 91 91 PLT 262 278 272 BMP: Recent Labs 12/26/16 2232 12/27/16 0558 12/28/16 0400 12/29/16 0203 NA 142 141 143 141 K 3.3* 3.2* 4.4 4.2 CL 109 108 108 102 CO2 20* 24 25 29 BUN 11 9* 10 13 CREATININE 0.67 0.55 0.51* 0.57 MG 1.6* 3.2* 2.5 2.1 PHOS -- 2.0* 3.5 3.7 CALCIUM 8.5 -- -- -- CALCCA 8.9 -- -- -- SERGLU -- 203* -- -- Radiology Images: CXR (12/26/16): - worsened reticular opacities in mid to lower lungs with superimposed airspace disease - pneumoniavs atypical pulmonary edema - possible pulmonary nodules Microbiology: Urine Legionella and Strep Antigens - Negative BCx x2 - NGTD Respiratory Virus Panel - No RSV, influenza, parainfluenza, viral swab still pending (?metapneumovirus) Proca 1.71 - 0.91 Assessment: Ms. Meadows is a 55 year old woman with a history of COPD (no baseline O2 requirement, FEV1 65%), asthma, fibromyalgia, and narcolepsy who presented with SOB and wheezing with significant hypoxia requiring HFNC concerning for an acute infectious process triggering a COPD exacerbation. Also some suspicion for concurrent diastolic heart failure exacerbation. Plan: PULM: Acute hypoxemic respiratory failure due to COPD exacerbation due likely to an infectious organism -HFNC 60 FiO2, 40 rate -Albuterol q4h PRN -Duoneb q4h scheduled -Dulera BID -Montelukast 10mg daily -Roflumilast 500mcg daily -Methylprednisolone 60mg IV daily -consider CT chest when respiratory status stable to work up pulmonary nodules -diurese as below -Morphine 2mg IV q2h PRN CV: Tachycardia likely from dyspnea -CTM RENAL: No active issues -Hold home tamulosin ID: CAP or viral pneumonia -Azithromycin x5 days -CTX x7 days -f/u Respiratory virus panel -f/u BCx -f/u SCx -stop following procalcitonin ENDO: No active issues. At risk hyperglycemia with steroids -FSBG QID GI: No active issues -pantoprazole 40mg daily ([employer] on omeprazole) H/O: Leukocytosis likely stress + steroids -daily CBC NEURO/PSYCH: Hx narcolepsy, chronic pain pain, fibromyalgia -hold home baclofen, doxycycline, norco, zolpidem, methylphenidate -Resume home pregabalin 300mg BID -Ropinirole 2mg PO qhs -Sertraline 200mg PO qhs -morphine prn for dyspnea LINES: pIV FEN: -Diet - regular -Electrolytes - none -Fluids - None PPX: -GI - Pantoprazole -DVT - Enoxaparin 40mg SQ daily Code status: Full DISPO: Uncertain at this time Emily Santos MD Internal Medicine PGY3 Attestation: I saw and examined the patient with the resident/fellow. I agree with the findings andplan of care documented in the resident's/fellow's note. Donato Benson MD 12/30/2016 11:42 * Yesica Edwards, MARKETING UNDERWRITER - 2016 1040 EDT Initial Case Management/Social Work Assessment and Discharge Plan/Readmission Risk Assessment REASON FOR ADMISSION: 55 y.o. female w/ PMH COPD (not currently on home O2), asthma, chronic back pain/fibromyalgia, and narcolepsy who presents with 1 day of low grade fever and vomiting, as well asprogressive SOB and wheezing. In the ED she has diffuse wheezing on examination requiring HFNC to maintain oxygenation. Admitted to MICU for acute on chronic hypoxemic respiratory failure secondary to COPD exacerbation, which is likely secondary to an underlying viral or bacterial pulmonary infection given new opacities on CXR. Patient understands reason for admission: Yes PATIENT CONTACT INFO VERIFIED: Yes - Alexi Ervin, contact information on face sheet. PATIENT ADDRESS VERIFIED: Yes LIVING ARRANGEMENTS AND ACCESSIBILITY ISSUES: Living Arrangements: Spouse / significant other, Family members Levels: 1 Stairs to enter: 2 Handicap access: None Bathroom located on bedroom level?: Yes What in home social supports are available to the patient? Spouse / significant other, Family member(s), Friends / neighbors Is 24/7 care available? Yes ADVANCED DIRECTIVES, POA &/or COLST IN PLACE: Healthcare Directive: No, patient does not have advance directive for healthcare treatment Information Provided on Healthcare Directives: No Information on Healthcare Directives Requested: No DIRECTIVES FOR FINANCES: Directive For Finances: No TRANSPORTATION: Transportation: Family CULTURAL, BAPTIST and/or LANGUAGE factors affecting health care/discharge planning: Spiritual/Cultural Requests: None Any factors affecting health care/discharge planning?: No Insurance in Place: Yes Medical Insurance: Yes Type of insurance: Medicaid Medicaid Type: Community Referred to patient financial services: No DISCHARGE RISK ASSESSMENT: Polypharmacy, > 7 medications;Diagnosis of COPD;History of mental illness Total # selected above: Tentative plan to address the risk of re-hospitalization for those at HIGH MODERATE RISK: Bring risk factors to attention of team to be addressed RAPT TOOL: Age: 50-65 Gender: Female Ambulation distance: 1-2 blocks Gait device: None Community Services: Home health, MOW, SASH-none of one time a week Will you live with someone who will care for you?: Yes RAPT Tool Score: 10 Patient expects to be discharged to: Home SBIRT: SASQ (Single Alcohol Screening Question) How many times in the past year have you had 4 or more drinks in a single day?: Never How many times in the past year have you used an illegal drug or used a prescription medication fornon-medical reasons?: Never Intervention in place/initiated?: No, not indicated FUNCTIONAL STATUS: Activities patient requires assistance: None Assistive Device: None COMMUNITY RESOURCES/SUPPORTS: Primary Care Provider: Jean Munoz PCP Verified: Yes Specialists: (Dermatology, sleep medicine) Type of Home Health Services: None DME Provider: Pharmacy: [id number] - [place], [place] - [address] [facility] [address] Home Health: Other: POST HOSPITAL TRANSITION PLAN: DC Home, DC needs TBD pending clinical course. Patient lives w/ her and brother. She is independent w/ ADLs, does not drive but family provides transportation. LILLI CARDONA 2016 10:40 * Chavo Del Castillo, RT - 2016 1028 EDT Respiratory Progress Note Indications for Respiratory therapy: HFNC/ Resp distress Data Vitals: Heart Rate: 94 BPM, Resp: (!) 32, SpO2: (!) 89 % FIO2/O2 Device: Continuous HFNC O2 Flow Rate (L/min): 40 l/min, , O2 Device: High flow nasal cannula, FIO2 %: 60 % RT Orders: Q4 duoneb Q4 albuterol nebulizer Q4 respiratory evaluation BID dulera Action/Events 0800- Diminished with coarse air movement. Duoneb and Dulera treatment given.Tolerated well. Decreased HFNC to 40 lpm. Loose non-productive cough. 1115- Duoneb given. BS coarse crackles npc. Response/Results Continue as orser. Chavo Del Castillo, 12/29/16 * Nicki Cunha - 2016 0754 EDT MEDICAL STUDENT MICU PROGRESS NOTE Date of admission: 12/27/2016 1:24 Reason for admission: Acute hypoxemic respiratory failure Code status: Full Code Brief History Maria Del Rosario Meadows is a 55 y.o. Female with a PMH of COPD (not on home O2) who was admitted to the MICU on 12/27 for acute hypoxemic respiratory failure 2/2 COPD vs asthma exacerbation in the setting of possible infection with pulmonary edema requiring HFNC 24 hour events - One episode of emesis overnight Subjective Pt endorses one episode of post tussive emesis, which mostly consisted of sputum. She states that she is feeling better than yesterday and rates her headache this morning as 4/10. Physical Exam VS: BP 114/64 Pulse (!) 114 Temp 35.9 ??C (96.6 ??F) (Tympanic) Resp 28 Ht 162.6 cm (64.02) LMP 01/11/1987 SpO2 93% HFNC 60% FiO2 on 60L General: alert, oriented, not in distress HEENT: no pallor/icterus PULMONARY: Bibasilar crackles that extend up to the middle lobes; no wheezes CVS: RRR, normal S1 and S2, no murmurs. Radial & dorsalis pedis pulses 2+ bilaterally, no pedaledema GI: +BS, nondistended, soft, nontender to palpation Derm: warm, no rash Neuro: CNII - XII grossly intact, moving all 4 extremities, no focal deficits noted I&O: Intake/Output Summary (Last 24 hours) at 12/29/16 0754 Last data filed at 12/29/16 0500 Gross per 24 hour Intake 720 ml Output 2510 ml Net -1790 ml UOP 2510 CBC: Recent Labs 12/26/16 2232 12/27/16 0558 12/28/16 0400 12/29/16 0203 WBC 12.85* 14.18* 17.86* 13.96* RBC 3.74* 3.75* 3.93 3.68* HGB 11.8 11.8 12.4 11.7 HCT 34.1* 33.7* 35.6 33.6* MCV 91 90 91 91 MCH 31.6 31.5 31.6 31.8 MCHC 34.6 35.0 34.8 34.8 PLT 259 262 278 272 NEUTROABS 9.63* -- -- -- BMP: Recent Labs 12/26/16 2232 12/27/16 0558 12/28/16 0400 12/29/16 0203 NA 142 141 143 141 K 3.3* 3.2* 4.4 4.2 CL 109 108 108 102 CO2 20* 24 25 29 BUN 11 9* 10 13 CREATININE 0.67 0.55 0.51* 0.57 CALCIUM 8.5 -- -- -- CALCCA 8.9 -- -- -- MG 1.6* 3.2* 2.5 2.1 PHOS -- 2.0* 3.5 3.7 LABALBU 3.5 -- -- -- No new imaging Assessment Maria Del Rosario Meadows is a 55 y.o. Female with a PMH of COPD (not on home O2) who was admitted to the MICU on 12/27 for acute hypoxemic respiratory failure 2/2 COPD vs asthma exacerbation with pulmonary edema, requiring HFNC. Plan PULM: Acute hypoxemic respiratory failure due to COPD vs asthma exacerbation due likely to an infectious organism. Crackles heard on exam, and pt may have some component of diastolic HF. Echo yesterday notable for mildly increased pulmonary pressures -Duoneb q4h scheduled -Dulera BID -Montelukast 10mg daily -Roflumilast 500mcg daily - Decreased Methylprednisolone to 60mg IV q24h -Morphine 2mg IV q2h PRN - Lasix 20mg IV BID; goal net negative 1500mL ?? CV: Tachycardia likely from dyspnea; chest pressure stable since admission with unremarkable ECG atadmission -CTM ?? RENAL: No active issues -Hold home tamsulosin ?? ID: CAP or viral pneumonia -Azithromycin x 5 days -CTX x 7 days -f/u Respiratory virus panel -f/u BCx ?? ENDO: No active issues. At risk hyperglycemia with steroids -FSBG QID - SSI ?? GI: No active issues -pantoprazole 40mg daily ([employer] on omeprazole) ?? H/O: Leukocytosis likely stress + steroids -daily CBC ?? NEURO/PSYCH: Hx narcolepsy, chronic pain pain, fibromyalgia. Pt has had headaches (migraine with aura) for the past day. Has had sumatriptan x 3 since admission. She attributes GABRIEL to albuterol and caffiene withdrawal. -hold home baclofen, doxycycline, norco, zolpidem, methylphenidate -Resume home pregabalin 300mg BID -Ropinirole 2mg PO qhs -Sertraline 200mg PO qhs - Headaches: tylenol, caffeinated beverages ?? LINES: pIV ?? FEN: -Diet - Regular ?? PPX: -GI - Pantoprazole -DVT - Enoxaparin 40mg SQ daily ?? Code status: Full; pt ok with intubation DISPO: Uncertain at this time ELISE Myers Acting Logistics Management Specialist 2016 7:54 * Parvin Hansen, RT - 2016 0533 EDT Respiratory Consult/Progress Note Data Vitals: Heart Rate: 87 BPM, Resp: 27, SpO2: 93 % FIO2/O2 Device: O2 Flow Rate (L/min): 50 l/min, O2 Device: High flow nasal cannula, FIO2 %: (S) 60 % RT Orders: Continuous HFNC Q4 duoneb Q4 respiratory evaluation BID dulera PRN Albuterol Protocol Scoring: Bronchodilator/Inhalation Therapy Frequency Bronchodialator - Clinical Indications: History of COPD Breath Sounds: Faint wheezing, decreased throughout Response: Mild response, increase subjective per ASTRONOMY INSTRUCTOR Pulse: <100 Resp Rate: 26-32 SOB: At rest Total Score: 7 Comment:: Switched to Q4 duonebs, Q2 PRN accuneb Airway Clearance Therapy Frequency Airway Clearance - Clinical Indications: No clinical indications Breath Sounds: Rhonchi / crackles Sputum: Small (tsp) / None Consistency: None Cough Effort: Strong, non-productive Color: None Total Score: 1 Comment: pt has strong, non-productive cough Hyperinflation Therapy Frequency Hyperinflation - Clinical Indications: Decreased breath sounds with increased FiO2 Breath Sounds: Diminished / crackles Surgery: No X-Ray / Atelectasis: No O2 Requirements: > 4 L above baseline Mobility Status: Mobile / at baseline Total: 5 Comment: HFNC Action/Events Administered respiratory treatments as ordered overnight. 0343: Titration of FIO2 to 60% with good tolerance RT KRISTAN 12/29/16 * Yesica Edwards CSW - 12/28/2016 1601 EDT Case management note. Attempted 2x to meet patient to assess for CM needs - first time she was having an ultrasound, second time she was sleeping. Will follow up tomorrow. Gail Edwards, [id number] * Emily Santos MD - 12/28/2016 1308 EDT MICU DAILY PROGRESS NOTE Admit Date: 12/27/2016 Hospital day: LOS: 1 day Date of Service: 12/28/2016 CC: SOB Summary of Last 24hrs: -weaned down on HFNC, but having significant dyspnea -nebulizers increased to q2h scheduled Subjective: Patient still feels dyspneic, but improved compared to yesterday. She has some chest pressure, which has been unchanged since admission. She denies fevers, chills, abdominal pain. Had some nausea this morning, but no vomiting. No edema. She does endorses 2 episodes of vomiting last Wednesday, prior toadmission. She endorses a 7-8/10 that is bilateral behind her eyes and radiates backward. She thinks this is like her usual headache, but is not dissimilar to prior caffeine withdrawal headaches she's had. She typically drinks 2-3 Pepsis per day. Objective: 12/27 0700 - 12/28 0659 In: 1100 [P.O.:800] Out: 2510 [Urine:2510] Blood pressure 104/62, pulse (!) 114, temperature (!) 35.4 ??C (95.7 ??F), temperature source Tympanic, resp. rate 22, height 162.6 cm (64.02), last menstrual period 01/11/1987, SpO2 96 %. on HFNC 70% and 45L flow Exam: Gen: AAOx3. Visibly tachypneic, with accessory muscle use Skin: Warm. Dry. No rashes or lesions HEENT: NC/AT. Anicteric Sclera. Dry mucous membranes Pulm: Decent air movement bilaterally with increased wheezes (worse than this morning), crackles inbases b/l to mid-lung zones Card: Tachycardic. Normal rhythm. S1, S2 normal. No murmurs, rubs, or gallops Abd: Soft. Non-distended. Non-tender. Ext: No edema Neuro: Spontaneously moving bilateral upper and lower extremities without focal deficits Medications: Personally reviewed in the NOV. Data Review: WBC 17K (up from 14K) Hgb 12 (stable) Plt 278 Lytes wnl Creatinine 0.51 ABG 7.40/32/57 Procalcitonin 1.72 -> 0.91 Radiology Images: CXR (12/26/16): ?? Worsening coarse reticular opacities within the mid to lower lungs ?? with superimposed airspace disease concerning for the development of ?? pneumonia or atypical pulmonary edema in patient with possible ?? underlying chronic interstitial disease. Some of the airspace ?? disease has a rounded appearance and underlying pulmonary nodules ?? cannot definitely be excluded. CT scan should be considered for ?? further evaluation. Microbiology: Urine Legionella and Strep Antigens - Negative BCx x2 - NGTD Respiratory Virus Panel - no influenza, RSV Assessment: Ms. Meadows is a 55 year old woman with a history of COPD (no baseline O2 requirement), asthma, fibromyalgia, rosacea on chronic doxycyline and narcolepsy who presented with SOB and wheezing with significant hypoxia requiring HFNC concerning for an acute infectious process triggering a COPD exacerbation, possibly complicated by diastolic heart failure exacerbation. Plan: PULM: Acute hypoxemic respiratory failure due to COPD exacerbation due likely to an infectious organism -HFNC 70 FiO2, 45 rate -Albuterol q4h PRN -Duoneb q4h scheduled -Dulera BID -Montelukast 10mg daily -Roflumilast 500mcg daily -Methylprednisolone 60mg IV q12h -consider CT chest when respiratory status stable -Furosemide 20mg IV BID -Morphine 2mg PO and IV q2h PRN CV: Tachycardia likely from dyspnea -CTM RENAL: No active issues -Hold home tamulosin ID: CAP or viral pneumonia -Azithromycin x5 days -CTX x7 days -f/u BCx -f/u SCx -discontinue procalcitonin checks ENDO: No active issues. At risk hyperglycemia with steroids -FSBG QID GI: No active issues -pantoprazole 40mg daily ([employer] on omeprazole) H/O: Leukocytosis likely stress + steroids -daily CBC NEURO/PSYCH: Hx narcolepsy, chronic pain pain, fibromyalgia. Headache - hx of migraines but symptoms of headache today not typical and more consistent with with tension or caffeine withdrawal. -hold home baclofen, doxycycline, norco, zolpidem, methylphenidate -continue home pregabalin 300mg BID -Ropinirole 2mg PO qhs -Sertraline 200mg PO qhs LINES: pIV FEN: -Diet - Clear liquid -Electrolytes - no acute abnormalities -Fluids - None PPX: -GI - Pantoprazole -DVT - Enoxaparin 40mg SQ daily Code status: Full DISPO: Uncertain at this time Emily Santos MD Internal Medicine PGY3 * Donato Benson MD - 12/28/2016 1105 EDT MICU Attending Progress Note ASSESSMENT AND PLAN SUMMARY: 55F with hx of COPD admitted with hypoxemic resp failure with bilateral pulmonary infiltrates, chills, fever, myalgia, arthralgia. Remains in the ICU in tenuous condition with tachypnea. Shefeels a bit better today but remains at risk for requiring intubation. Cardiovascular - Negative 1.6 liters, h/o HFPEF: continue to target gentle diuresis or net negative. Pulmonary / ID - Probably has bilateral pneumonia superimposed on severe emphysema/COPD - Continue ctx/azithromycin, f/u PCT / culture data - Continue HFNC support, could consider trialing BiPAP especially at night or if she was to developworsening WOB - Volume management as above - Aggressive bronchodilators Gastroenterology - Nutritional strategy: Regular diet Renal - Cr adequate, follow lytes Hematologic: - sq enoxaparin for dvt ppx Endocrine: - follow FSBS Neurologic: - continue home sertraline, ropinerole Donato Benson MD 12/28/2016 11:05 Physical Examination Vital Signs Temp: (!) 35.4 ??C (95.7 ??F) Temp: [35.4 ??C (95.7 ??F)-36.7 ??C (98.1 ??F)] () Pulse: (!) 114 Pulse: -- () BP: 115/69 BP: (88-119)/(53-79) () Resp: (!) 36 Resp: [23-45] () SpO2: 94 % SpO2: [86 %-96 %] () Exam: General: Slightly dyspneic Cardiovascular: Regular Pulmonary: Wheeze b/l Abdomen: Soft, NT Extremities: Warm, well perfused Medications Daily Scheduled albuterol 2.5 mg Q4H azithromycin (ZITHROMAX) IVPB 250 mg Q24H cefTRIAXone (ROCEPHIN) IVPB (1 g premade bag) 1,000 mg Q24H cycloSPORINE 1 Drop BID enoxaparin 40 mg DAILY fexofenadine 180 mg DAILY furosemide 20 mg BID (BREAKFAST/DINNER) ipratropium-albuterol 3 mL Q4H methylPREDNISolone sod suc(PF) 60 mg Q12H mometasone-formoterol 2 Puff BID montelukast 10 mg DAILY pantoprazole 40 mg DAILY PEG 3350-Electrolytes 17 g DAILY pregabalin 300 mg BID roflumilast 500 mcg DAILY rOPINIRole 2 mg QHS senna 1 Tab QHS sertraline 200 mg QHS Daily PRN Meds acetaminophen 650 mg Q4H PRN docusate sodium 200 mg BID PRN hypromellose 1 Drop Q4H PRN morphine 2 mg Q2H PRN morphine 2.5 mg Q2H PRN ramelteon 8 mg AT BEDTIME PRN Billing: Chief Complaint: hypoxemic respiratory failure Critical Care Time: I spent 39 minutes of critical care time with this patient performing noted interventions and evaluations. This does not overlap with other physicians critical care time and is exclusive of any procedures. * Aurelia Chamberlain, RT - 12/28/2016 1048 EDT Respiratory Consult/Progress Note Indications for Respiratory therapy: HFNC Data Vitals: Heart Rate: 93 BPM, Resp: (!) 36, SpO2: 94 % FIO2/O2 Device: O2 Flow Rate (L/min): (S) 50 l/min, O2 Device: High flow nasal cannula, FIO2 %: (S) 80 % RT Orders: Continuous HFNC Q4 duoneb Q4 albuterol nebulizer Q4 respiratory evaluation BID dulera Protocol Scoring: Bronchodilator/Inhalation Therapy Frequency Bronchodialator - Clinical Indications: History of COPD Breath Sounds: Faint wheezing, decreased throughout Response: Mild response, increase subjective per ASTRONOMY INSTRUCTOR Pulse: <100 Resp Rate: 26-32 SOB: At rest Total Score: 7 Comment:: q2 neb ordered for now Airway Clearance Therapy Frequency Airway Clearance - Clinical Indications: No clinical indications Breath Sounds: Rhonchi / crackles Sputum: Small (tsp) / None Consistency: None Cough Effort: Strong, non-productive Color: None Total Score: 1 Comment: pt has strong, non-productive cough Hyperinflation Therapy Frequency Hyperinflation - Clinical Indications: Decreased breath sounds with increased FiO2 Breath Sounds: Diminished / crackles Surgery: No X-Ray / Atelectasis: No O2 Requirements: > 4 L above baseline Mobility Status: Mobile / at baseline Total: 5 Comment: HFNC Action/Events Weaned patient to 60% and 45L on her HFNC this morning. 10:27 patient desaturated to 84% with SOB due to headache. Titrated patient back to 80% and 50L. Patient feels better with the higher flow. 12:05 weaned patient to 45L and 70% with saturations in the mid 90's. Response/Results Wean oxygen as tolerated with saturation goal of 92% or above. RT TURNER 12/28/16 * Nicki Cunha - 12/28/2016 0839 EDT MEDICAL STUDENT MICU PROGRESS NOTE Date of admission: 12/27/2016 1:24 Reason for admission: Acute hypoxemic respiratory failure Code status: Full Code Brief History Maria Del Rosario Meadows is a 55 y.o. Female with a PMH of COPD (not on home O2) who was admitted to the MICU on 12/27 for acute hypoxemic respiratory failure 2/2 presumed COPD vs asthma exacerbation with possible CHF, requiring HFNC. 24 hour events - No acute events overnight Subjective Pt endorses SOB this morning, chest heaviness has unchanged since admission, abdominal pain and 2 episodes of emesis prior to admission. Physical Exam VS: BP 115/69 Pulse (!) 114 Temp (!) 35.4 ??C (95.7 ??F) (Tympanic) Resp (!) 33 Ht 162.6 cm(64.02) LMP 01/11/1987 SpO2 (!) 87% HFNC 70% FiO2 on 45L General: alert, oriented, not in distress HEENT: PERRL, no pallor/icterus PULMONARY: Bibasilar crackles that extend up to the middle lobes CVS: RRR, normal S1 and S2, no murmurs. Radial & dorsalis pedis pulses 2+ bilaterally, no pedaledema GI: +BS, nondistended, soft, tender to palpation in the epigastric region Derm: warm, no rash Neuro: CNII - XII grossly intact, moving all 4 extremities, no focal deficits noted I&O: Intake/Output Summary (Last 24 hours) at 12/28/16 0839 Last data filed at 12/28/16 0800 Gross per 24 hour Intake 1100 ml Output 2545 ml Net -1445 ml CBC: Recent Labs 12/26/16223112/27/16 0558 12/28/16 0400 WBC 12.85* 14.18* 17.86* RBC 3.74* 3.75* 3.93 HGB 11.8 11.8 12.4 HCT 34.1* 33.7* 35.6 MCV 91 90 91 MCH 31.6 31.5 31.6 MCHC 34.6 35.0 34.8 PLT 259 262 278 NEUTROABS 9.63* -- -- BMP: Recent Labs 12/26/16223112/27/16 0558 12/28/16 0400 NA 142 141 143 K 3.3* 3.2* 4.4 CL 109 108 108 CO2 20* 24 25 BUN 11 9* 10 CREATININE 0.67 0.55 0.51* CALCIUM 8.5 -- -- CALCCA 8.9 -- -- MG 1.6* 3.2* 2.5 PHOS -- 2.0* 3.5 LABALBU 3.5 -- -- Procalcitonin 1.72 to 0.91 No new imaging Assessment Mari aDel Rosario Meadows is a 55 y.o. Female with a PMH of COPD (not on home O2) who was admitted to the MICU on 12/27 for acute hypoxemic respiratory failure 2/2 COPD vs asthma exacerbation with possible CHF, requiring HFNC. Plan PULM: Acute hypoxemic respiratory failure due to COPD vs asthma exacerbation due likely to an infectious organism. Crackles heard on exam, pt could have CHF. -Albuterol q4h PRN -Duoneb q4h scheduled -Dulera BID -Montelukast 10mg daily -Roflumilast 500mcg daily - Decreased Methylprednisolone to 60mg IV q12h -consider CT chest when respiratory status stable -Morphine 2mg IV q2h PRN - Add Lasix 20mg IV BID - Echocardiogram ordered to evaluate for heart failure ?? CV: Tachycardia likely from dyspnea; chest pressure stable since admission with unremarkable ECG atadmission -CTM ?? RENAL: No active issues -Hold home tamulosin ?? ID: CAP or viral pneumonia -Azithromycin x 5 days -CTX x 7 days -f/u Respiratory virus panel -f/u BCx - stop following procalcitonin ?? ENDO: No active issues. At risk hyperglycemia with steroids -FSBG QID ?? GI: No active issues -pantoprazole 40mg daily ([employer] on omeprazole) ?? H/O: Leukocytosis likely stress + steroids -daily CBC ?? NEURO/PSYCH: Hx narcolepsy, chronic pain pain, fibromyalgia -hold home baclofen, doxycycline, norco, zolpidem, methylphenidate -Resume home pregabalin 300mg BID -Ropinirole 2mg PO qhs -Sertraline 200mg PO qhs -Sumatriptan 50mg PO x1 ?? LINES: pIV ?? FEN: -Diet - Clear liquid -Fluids - None ?? PPX: -GI - Pantoprazole -DVT - Enoxaparin 40mg SQ daily ?? Code status: Full; pt ok with intubation DISPO: Uncertain at this time ELISE Myers Acting Logistics Management Specialist 12/28/2016 8:39 * Aurelia Chamberlain, RT - 12/27/2016 1319 EDT Respiratory Consult/Progress Note Indications for Respiratory therapy: Patient on HFNC Data Vitals: Heart Rate: 101 BPM, Resp: 29, SpO2: 91 % FIO2/O2 Device: O2 Flow Rate (L/min): 45 l/min, O2 Device: High flow nasal cannula, FIO2 %: 55 % RT Orders: Continuous HFNC Q4 respiratory evaluation Q4 duoneb BID dulera PRN duoneb Protocol Scoring: Bronchodilator/Inhalation Therapy Frequency Bronchodialator - Clinical Indications: History of COPD Breath Sounds: Faint wheezing, decreased throughout Response: Mild response, increase subjective per ASTRONOMY INSTRUCTOR Pulse: >100 Resp Rate: 26-32 SOB: At rest Total Score: 8 Comment:: q4 nebs Airway Clearance Therapy Frequency Airway Clearance - Clinical Indications: No clinical indications Breath Sounds: Rhonchi / crackles Sputum: Small (tsp) / None Consistency: None Cough Effort: Strong, non-productive Color: None Total Score: 1 Comment: pt has strong, non-productive cough Hyperinflation Therapy Frequency Hyperinflation - Clinical Indications: Decreased breath sounds with increased FiO2 Breath Sounds: Other Surgery: No X-Ray / Atelectasis: No O2 Requirements: > 4 L above baseline Mobility Status: In chair Total: 6 Comment: on HFNC Action/Events ABG checked on 55% and 45L of HFNC 7.4/32/57/21. Titrated patient to 70% and 45L of HFNC. She feelsa little better on these settings but feels SOB when she talks a lot, moves or with turns. RT expressed concerns of patient WOB to Dr. Arcadio Velázquez who is aware she is tenuous at this time. Response/Results Wean oxygen for goal saturations of 92% or above. RT TURNER 12/27/16 * Festus Arriaga MD - 12/27/2016 1132 EDT MICU DAILY PROGRESS NOTE Admit Date: 12/27/2016 Hospital day: LOS: 0 days Date of Service: 12/27/2016 CC: SOB Summary of Last 24hrs: -weaned down on HFNC, but having significant dyspnea Subjective: Patient still feels dyspneic, but better than she did upon arrival yesterday. Continued non-productive cough. Denies fevers, chills, abdominal pain. Had some nausea this morning, but no vomiting. No edema. Objective: 12/26 0700 - 12/27 0659 In: 100 Out: 750 [Urine:750] Blood pressure 103/63, pulse (!) 114, temperature 36.7 ??C (98.1 ??F), resp. rate (!) 31, height 162.6 cm (64.02), last menstrual period 01/11/1987, SpO2 (!) 86 %. There is no height or weight on file to calculate BMI. Exam: Gen: AAOx3. Visibly tachypneic, but completing sentences with no accessory muscle use Skin: Warm. Dry. No rashes or lesions HEENT: NC/AT. Anicteric Sclera. Dry mucous membranes Pulm: Poor air movement. No wheezing or crackles Card: Tachycardic. Normal rhythm. S1, S2 normal. No murmurs, rubs, or gallops Abd: Soft. Non-distended. Non-tender. Ext: No edema Neuro: Spontaneously moving bilateral upper and lower extremities without focal deficits Medications: Personally reviewed at end of note Data Review: CBC: Recent Labs 12/26/16223112/27/16 0558 WBC 12.85* 14.18* HGB 11.8 11.8 HCT 34.1* 33.7* MCV 91 90 PLT 259 262 BMP: Recent Labs 12/26/162 12/27/16 0558 NA 142 141 K 3.3* 3.2* CL 109 108 CO2 20* 24 BUN 11 9* CREATININE 0.67 0.55 MG 1.6* 3.2* PHOS -- 2.0* CALCIUM 8.5 -- CALCCA 8.9 -- SERGLU -- 203* LFTs: Recent Labs 12/26/16 2232 ALT 23 AST 27 ALKPHOS 100 TBIL <0.5 CONJBILI 0.0 UNCONJBILI 0.0 TP 5.8* LABALBU 3.5 ABGs: Recent Labs 12/26/16 2342 PHISTAT 7.39 PCOISTAT 34* POISTAT 49* POCTCO2 21* BDART 4 POCFIO2 44 Radiology Images: CXR (12/26/16): ?? Worsening coarse reticular opacities within the mid to lower lungs ?? with superimposed airspace disease concerning for the development of ?? pneumonia or atypical pulmonary edema in patient with possible ?? underlying chronic interstitial disease. Some of the airspace ?? disease has a rounded appearance and underlying pulmonary nodules ?? cannot definitely be excluded. CT scan should be considered for ?? further evaluation. Microbiology: Urine Legionella and Strep Antigens - Negative BCx x2 - NGTD Respiratory Virus Panel - pending Assessment: Ms. Meadows is a 55yo female with a history of COPD (no baseline O2 requirement), asthma, fibromyalgia, and narcolepsy who presented with SOB and wheezing with significant hypoxia requiring HFNC concerning for an acute infectious process triggering a COPD exacerbation. Plan: PULM: Acute hypoxemic respiratory failure due to COPD exacerbation due likely to an infectious organism -HFNC 55 FiO2, 45 rate -Albuterol q4h PRN -Duoneb q4h scheduled -Dulera BID -Montelukast 10mg daily -Roflumilast 500mcg daily -Methylprednisolone 60mg IV q6h -consider CT chest when respiratory status stable -Furosemide 20mg IV x1 -Morphine 2mg IV q2h PRN CV: Tachycardia likely from dyspnea -CTM RENAL: No active issues -Hold home tamulosin ID: CAP or viral pneumonia -Azithromycin x5 days -CTX x7 days -f/u Respiratory virus panel -f/u BCx -f/u SCx -continue procalcitonin daily ENDO: No active issues. At risk hyperglycemia with steroids -FSBG QID GI: No active issues -pantoprazole 40mg daily ([employer] on omeprazole) H/O: Leukocytosis likely stress + steroids -daily CBC NEURO/PSYCH: Hx narcolepsy, chronic pain pain, fibromyalgia -hold home baclofen, doxycycline, norco, zolpidem, methylphenidate -Resume home pregabalin 300mg BID -Ropinirole 2mg PO qhs -Sertraline 200mg PO qhs -Sumatriptan 50mg PO x1 LINES: pIV FEN: -Diet - Clear liquid -Electrolytes - Hypokalemia -Fluids - None PPX: -GI - Pantoprazole -DVT - Enoxaparin 40mg SQ daily Code status: Full DISPO: Uncertain at this time Festus Arriaga MD PGY3 [phone] Current Facility-Administered Medications Medication Route Frequency ??? acetaminophen (TYLENOL) tablet 650 mg oral Q4H PRN ??? albuterol (ACCUNEB) nebulizer solution 2.5 mg nebulization Q4H PRN ??? azithromycin (ZITHROMAX) 250 mg in dextrose 5% (D5W) 250 mL IVPB intravenous Q24H ??? cefTRIAXone (ROCEPHIN) 1,000 mg in sodium chloride (NS MBP) 0.9 % 50 mL IVPB intravenous Q24H ??? cycloSPORINE (RESTASIS) 0.05 % ophthalmic emulsion 1 Drop both eyes BID ??? docusate sodium (COLACE) capsule 200 mg oral BID PRN ??? enoxaparin (LOVENOX) injection 40 mg subcutaneous DAILY ??? fexofenadine (JUDITH) 12 hr tablet 180 mg oral DAILY ??? hypromellose (ISOPTO TEARS) 0.5 % ophthalmic solution 1 Drop both eyes Q4H PRN ??? ipratropium-albuterol (DUONEB) 0.5 mg-3 mg(2.5 mg base)/3 mL nebulizer solution 3 mL nebulization Q4H ??? methylPREDNISolone sod suc(PF) (SOLU-MEDROL) injection 60 mg intravenous Q6H ??? mometasone-formoterol (DULERA) 200-5 mcg/actuation inhaler 2 Puff inhalation BID ??? montelukast (SINGULAIR) tablet 10 mg oral DAILY ??? morphine injection 2 mg intravenous Q4H PRN ??? pantoprazole (PROTONIX) tablet 40 mg oral DAILY ??? potassium chloride SA (K-DUR, KLOR-CON) tablet 40 mEq oral BID (BREAKFAST/LUNCH) ??? potassium, sodium phosphates (PHOS-NAK) 280-160-250 mg packet 8 mmol oral Q8H ??? roflumilast tablet 500 mcg oral DAILY ??? rOPINIRole (REQUIP) tablet 2 mg oral QHS ??? sertraline (ZOLOFT) tablet 200 mg oral DAILY ??? tiotropium (SPIRIVA) 18 mcg inhalation capsule 18 mcg inhalation DAILY * Jorge Samaniego RT - 12/27/2016 0550 EDT Respiratory Progress Note Indications for Respiratory therapy: COPD exacerbation/HFNC Data Vitals: Heart Rate: 92 BPM, Resp: 30, SpO2: 94 % FIO2/O2 Device: O2 Flow Rate (L/min): 45 l/min, , O2 Device: High flow nasal cannula, FIO2 %: (S) 50 % RT Orders: HFNC, QD spiriva, bid dulera, q4 duo Action/Events Respiratory events; Pt arrived from the ED on non-rebreather. Pt was placed on HFNC of 45L/100%. Pt was anxious and very tachy. Pt was able to be weaned down to 55% with an O2 sat of 94% Response/Results Weaning and Toleration of treatments; Wean O2 as tolerated RT DELFINO 12/27/16 * Kamila Wolff, - 12/26/2016 7932 EDT Respiratory Consult/Progress Note Indications for Respiratory therapy: Hx of COPD/emphysema and Asthma Data Vitals: Heart Rate: 108 BPM, Resp: 28, SpO2: 94 % FIO2/O2 Device: O2 Flow Rate (L/min): 6 l/min, , O2 Device: Nasal cannula, RT Orders: Duoneb X 3 stacked Protocol Scoring: Bronchodilator/Inhalation Therapy Frequency Bronchodialator - Clinical Indications: History of COPD Breath Sounds: Faint wheezing, decreased throughout Response: Significant response, measurable improvement with PF, RR, or BS Pulse: >100 Resp Rate: 26-32 SOB: Limiting speech Total Score: 10 Comment:: Q4 and prn indicated (pt in distress;getting 3 stacked Duonebs) Airway Clearance Therapy Frequency Airway Clearance - Clinical Indications: No clinical indications Breath Sounds: Clear / diminished Sputum: Small (tsp) / None Consistency: None Cough Effort: Strong, non-productive Color: None Total Score: 0 Comment: pt has strong;non-productive cough Hyperinflation Therapy Frequency Hyperinflation - Clinical Indications: No clinical indications Breath Sounds: Other Surgery: No X-Ray / Atelectasis: No O2 Requirements: > 4 L above baseline Mobility Status: In chair Total: 6 Comment: not indicated Action/Events Respiratory events; Pt tachyneic with labored breathing. SpO2 was in the mid 70s on RA upon arrival. Now 94% on 6L NC. BS diminished with end expiratory wheeze. Strong, non- productive cough. Pt given 3 Duonebs stacked. Increased aeration post neb txs, with coarse crackles and diffuse expiratory wheezes heard through out. SpO2 95% post nebs. 2330: Pt continues to be tachypneic with increased WOB. SpO2 92% on 6L upon return from CXR. ABG obtained on 6L NC: pH 7.39/pCO2 34/pO2 49/ Bicarb 21/-4/ Sat 84% (monitor reading 92%). Pt placed on BiPAP / and 100% FIO2 to try to relieve WOB, as well as to oxygenate. Pt given another Duoneb. She remained tachypneic after 30 min on BiPAP and was not tolerating it well. Pt transitioned toHFNC. 45L and 100% FIO2. Response/Results Weaning and Toleration of treatments; [facility] RT Gita 12/26/16 documented in this encounter H&P Notes * Akin Harrington MD - 12/27/2016 0230 EDT MICU Attending Admitting H+P Date of Service: 12/27/2016 Chief Complaint: Maria Del Rosario Meadows is a 55 y.o. female admitted critically ill to the MICU for acute hypoxic respiratoryfailure. LOS: 0 days . HPI: -hx COPD (w/ restrictive shane), admission in 2013 for PNA (CT w/ diffuse gg infiltrates and emphysema) / ?HFpEF, improved w/ diuresis, abx, COPD management, since then relative stable on LAMA/LABA/ICS / roflumilast -also hx depression, chronic pain, prior tobacco use -presented to ED tonight w/ dyspnea / hypoxia after being surrounded by smokers at her bday libertarian, in setting of malaise since > 1 wk. Also w/ diarrhea/n/v over last week though better last few days. + subjective fevers, chills, myalgias, arthralagias, increased [employer] cough. Seen by PCP for some ofthese sxs 12/23, attributed to possible viral gastroenteritis -on arrival to ED was hypoxic and tachypnic. Placed on bipap but did not tolerate w/ increased RR -transitioned to Hiflo, received several nebs, 125 mg solumedrol, CAP coverage. Sats 98% on 100% / 55 LPM hiflo -at time of our exam reports breathing feels better on hiflo and post nebs, though still w/ sig dyspnea. Mild diffuse pain. Thirsty. Nausea improved, no current gi sxs. PMH PSH Past Medical History: Diagnosis Date [...] ANKLE FRACTURE SURGERY 04/01/10 left ankle [facility] ??? CERVICAL SPINE SURGERY 12/31/08 discectomy, fusion C4-7 Dr Dewitt ??? COLONOSCOPY 07/29/09 repeat 10 years ??? CYST INCISION AND DRAINAGE 09/17/10 left cheek ??? CYSTOSCOPY 02/14/13 ??? FINE NEEDLE ASPIRATION 09/19/10 left cheek ??? GASTRIC BYPASS SURGERY ??? GASTRIC FUNDOPLICATION 03/02/07 [facility] ??? HYSTERECTOMY, VAGINAL menorrhagia ??? SALPINGECTOMY 1982 ectopic ??? SHOULDER ARTHROSCOPY 10/15 left, with acromioplasty Social History Family History Social History Substance Use Topics ??? Smoking [...] Neg Hx ??? Blindness Neg Hx Medications Prescriptions Prior to Admission Medication Sig Dispense Refill Last Dose ??? baclofen (LIORESAL) 10 mg tablet Take 1 Tab by mouth 3 times daily as needed (mucles tightness). 180 Tab 3 12/27/2016 ??? Ciclesonide 50 mcg spray,non-aerosol 100 mcg by nasal route daily. 37.5 g 1 12/27/2016 ??? cycloSPORINE (RESTASIS) 0.05 % ophthalmic emulsion Place 1 Drop into both eyes 2 times daily Taking ??? docusate sodium (COLACE) 100 mg capsule Take 1 Cap by mouth 2 times daily as needed for Constipation. Unknown ??? doxycycline (VIBRAMYCIN) 100 mg capsule TAKE ONE CAPSULE BY MOUTH ONE TIME DAILY 90 Cap 3 12/27/2016 ??? fexofenadine (JUDITH) 180 mg tablet Take 1 Tab by mouth daily. 90 Tab 3 12/27/2016 ??? fluticasone-salmeterol (ADVAIR HFA) 230-21 mcg/actuation inhaler INHALE TWO PUFFS BY MOUTH TWICE DAILY as directed 3 Inhaler 3 12/27/2016 ??? [START ON 02/18/2017] HYDROcodone-acetaminophen (NORCO) 5-325 mg tablet Take 1-2 Tabs by mouth every 6 hours as needed for up to 12 days for Pain. Earliest Fill Date: 02/18/17 Daily Max: 8 Tabs 112 Tab 0 Unknown ??? [START ON 01/21/2017] HYDROcodone-acetaminophen (NORCO) 5-325 mg tablet Take 1-2 Tabs by mouth every 6 hours as needed for up to 28 days for Pain. Earliest Fill Date: 01/21/17 Daily Max: 8 Tabs 112Tab 0 Unknown ??? HYDROcodone-acetaminophen (NORCO) 5-325 mg tablet Take 1-2 Tabs by mouth every 6 hours as needed for up to 28 days for Pain. Earliest Fill Date: 12/23/16 Daily Max: 8 Tabs 112 Tab 0 Unknown ??? HYDROcodone-acetaminophen (NORCO) 5-325 mg tablet Take 1 Tab by mouth 4 times daily for 11 daysEarliest Fill Date: 09/23/15 Daily Max: 4 Tabs 44 Tab 0 Taking ??? hydroxypropyl methylcellulose (ISOPTO TEARS) 0.5 % ophthalmic solution Place 1 Drop into both eyes 5 times daily. 12/27/2016 ??? ipratropium-albuterol (DUONEB) 0.5 mg-3 mg(2.5 mg base)/3 mL nebulizer solution Take 3 mL by nebulization every 4 hours as needed for Wheezing. 3 mL 3 12/27/2016 ??? levalbuterol (XOPENEX HFA) 45 mcg/actuation inhaler INHALE TWO PUFFS BY MOUTH EVERY SIX HOURS NEEDED 3 Inhaler 3 12/27/2016 ??? LYRICA 300 mg capsule TAKE ONE CAPSULE BY MOUTH TWICE DAILY. daily max: 2 caps (600mg) 60 Cap ??? methylphenidate (RITALIN;METHYLIN) 20 mg tablet Take 2 tabs by mouth in the morning. Earliest Fill Date: 12/17/16 60 Tab 0 12/27/2016 ??? methylphenidate (RITALIN;METHYLIN) 10 mg tablet Take one tab in the afternoon for narcolepsy. Earliest Fill Date: 12/17/16 30 Tab 0 12/27/2016 ??? montelukast (SINGULAIR) 10 mg tablet Take 1 Tab by mouth daily. 90 Tab 3 12/27/2016 ??? omeprazole (PRILOSEC) 40 mg capsule Take 1 Cap by mouth daily. 90 Cap 3 12/27/2016 ??? ondansetron (ZOFRAN) 4 mg tablet TAKE ONE TABLET BY MOUTH DAILY NEEDED for nausea 30 Tab 3 Unknown ??? promethazine (PHENERGAN) 25 mg tablet Take 1 Tab by mouth every 6 hours as needed for Nausea. 20 Tab 1 Unknown ??? roflumilast (DALIRESP) 500 mcg tablet Take 1 Tab by mouth daily. 90 Tab 3 12/27/2016 ??? rOPINIRole (REQUIP) 2 mg tablet Take 1 Tab by mouth at bedtime. TAKE ONE TABLET BY MOUTH AT BEDTIME 90 Tab 3 12/27/2016 ??? sertraline (ZOLOFT) 100 mg tablet Take 2 Tabs by mouth daily. 180 Tab 3 Taking ??? sumatriptan (IMITREX) 50 mg tablet Take 1 tablet by mouth as needed for migraine. Daily maximumdose: 100 mg. Patient averages 12 headaches per month. 9 Tab 2 Unknown ??? tamsulosin (FLOMAX) 0.4 mg capsule Take 1 Cap by mouth daily. 90 Cap 3 12/26/2016 ??? tiotropium bromide (SPIRIVA RESPIMAT) 1.25 mcg/actuation mist Inhale 2.5 mcg as directed daily.12 g 3 12/26/2016 ??? zolpidem (AMBIEN) 5 mg tablet Take 1 Tab by mouth at bedtime as needed for Sleep. Daily Max: 5 mg 28 Tab 5 Unknown Allergies Allergies Allergen Reactions ??? Toradol [Ketorolac Tromethamine] Hives ??? Motrin [Ibuprofen] Itching Review Of Systems: Pertinent negatives and positives are noted in the HPI, otherwise a complete 10 pt ROS was negative. Physical Examination: Vital Signs: Patient Vitals for the past 8 hrs: BP Pulse Heart Rate Resp Temp SpO2 O2 Flow Rate (L/min) O2 Device FIO2 % 12/27/16 0132 - - 104 BPM (!) 32 - 99 % 45 l/min High flow nasal cannula 90 % 12/27/16 0100 104/55 - 107 BPM (!) 36 - 99 % - - - 12/27/16 0041 - - 110 BPM (!) 32 - 98 % 45 l/min High flow nasal cannula 100 % 12/27/16 0030 - - 106 BPM (!) 33 - 100 % - - - 12/27/16 0000 103/56 - 103 BPM 28 - 100 % - - - 12/26/16 2352 - - 108 BPM 27 - 96 % - BIPAP 100 % 12/26/160 - - 105 BPM 27 - 97 % - - - 12/26/163 - - 108 BPM 30 - 93 % 15 l/min Non-rebreather mask 100 % 12/26/16 2342 - - 104 BPM (!) 32 - 92 % 6 l/min Nasal cannula - 12/26/160 - - 108 BPM 28 - 94 % 6 l/min Nasal cannula - 12/26/168 101/66 (!) 114 - 30 37.7 ??C (99.9 ??F) 94 % 6 l/min - - General: A&Ox3, sig increased WOB, mod tachypnea HEENT: MMM, no icterus, PERRL, no oropharyngeal lesions Neck: Supple, no increased JVP, no adenopathy Lungs: Diffuse wheezes, scant basilar crackles CV: mild tachy but reg No MRG Abd: Soft, NT, ND, NABS Extrem: Warm, perfused, no edema / cyanosis Skin: Intact. No rashes, lesions or decubs. Data Review: Labs: Were reviewed in [facility] Other Studies: CXR: IMPRESSION: 1. ??Worsening coarse reticular opacities within the mid to lower lungs concerning for the development of pneumonia in addition to worsening of the patient's underlying pulmonary fibrosis. EKG: sinus tach, no ischemic changes Assessment/Problems/Plans: Acute hypoxic respiratory failure w/ prodrome concerning for viral pna but also consider bacterial pna, complicated by COPD exacerbation. Prior hx of resp failure which improved w/ diuresis though current hx and exam suggest mild volume depletion. Respiratory: -Hiflo NC -methylpred 60 q 6 -cap coverage w/ azithro / ctx -nebs q 1-2 -replete mag -viral panel -urine strep / leg Cardiovascular: -admission / CT in 2013 concerning for component of pulm edema, responded to diuresis though echo at that time not overly suggestive of diastolic dysfunction, has been stable off diuretics as OP and current picture more suggestive of mild volume depletion -ekg / trop reassuring -check BNP Renal: -no SETH, voiding independently w/ good UOP so far -replete k and mag Infectious Disease: -cont CAP coverage w/ CTX / azithro -blood cxs pending, check viral panel, urine strep / leg -procalcitonins Hematologic: -leukocytosis no other issues Endocrine: -no issues. FS on arrival 152, follow daily given steroids, add aspart if needed Neuro/Psychiatric: -morphine for dyspnea -will resume home narcotics as needed -cont antidepressants -hold baclofen (uses rarely) GI/Nutrition: -clear liquids only pending improvement in resp status -GI sxs seem to be improving -LFTs WNL GI & DVT Prophylaxis: -heparin, home antireflux reg Lines/Tubes/Invasive: PIV Consultants: none Acute Critical Care Interventions Last 24 Hours: My specific acute critical care interventions today include:mechanical ventilation hiflo NC, fluid and electrolyte management replete mag and k, management of pain and sedation chronic pain and morphine for dyspnea and antimicrobial therapy for possible CAP Social: family coming tomorrow Prognosis/Disposition: Very Guarded Critical Care Time: I spent 45 minutes of critical care time with this patient performing noted interventions and evaluations excluding any time spent on unbundled procedures. Akin Harrington MD 12/27/2016 2:31 * Cate Bro MD - 12/27/2016 0125 EDT MICU Admission H&P Admission Date: 12/27/2016 Date of Service: 12/27/2016 Hospital Day: LOS: 0 days PCP: Jean Munoz CC: Shortness of breath Subjective: HPI: Ms. Meadows is a 55 y/o female w/ PMH COPD (not currently on home O2), asthma, chronic back pain/fibromyalgia, narcolepsy, depression/anxiety, IBS, and GERD who presents to the ED today with 1 day of progressive SOB. She reports that starting last night she did not feel well - temperature to 99.9Fand several episodes of emesis. This morning, she again felt febrile and had a couple of episodes of emesis. Also started to develop worsening SOB. Her O2 sat this morning was 98%, but began to progressively decline throughout the day. She was having a birthday libertarian at her house [facility] and several of the guests were smoking. Duringthe libertarian her SOB increased, and this is what prompted her presentation to the ED. Does endorse a dry, non-productive cough over the past few days. Denies any myalgias/arthralgias other than her usual aches and pains. She endorses excellent compliance with her COPD medications. She quit smoking 3 years ago but does live with her and son, both of whom smoke, occasionally indoors. She was evaluated by Dr. Virk in 2013 for her COPD - at that time PFTs revealed restriction/poor effort (FVC 1.86 - 54% predicted, FEV1 1.4 - 51% predicted, FEV1/FVC 94% predicted). CT chest at that time re vealed severe emphysema and GGOs and was negative for PE. She denies any headaches, sore throat, rhinorrhea, chest pain, palpitations, abdominal pain, diarrhea, peripheral edema, or dysuria. She denies any recent travel, prolonged car/plane rides, personal/family h/o VTE, or known sick contacts. In the ED she was hypoxemic to the mid-80%s. She was placed on BiPAP, which she could not tolerate and became more tachypneic. She was changed to HFNC at 100%. Labs were notable for K 3.3, neg trop, neg d-dimer, and ABG 7.39/34/49. CXR revealed worsening coarse reticular opacities in the mid and lower B/L lung dalal concerning for development of infection. She received duonebs x4, IV methylprednisolone 125 mg x1, and azithro and CTX. Blood cultures and influenza swab were ordered. She was transferred to the MICU for further management. Review of Systems 10 point ROS performed, pertinent positives/negatives as outlined in the HPI. PMH PSH Past Medical History: Diagnosis Date [...] ANKLE FRACTURE SURGERY 04/01/10 left ankle [facility] ??? CERVICAL SPINE SURGERY 12/31/08 discectomy, [...] acromioplasty Social History Family history Social History Social History ??? Marital status: Spouse name: N/A ??? Number of children: N/A ??? Years of education: N/A Occupational History ??? None Social History Main Topics ??? Smoking status: Former Smoker Packs/day: 1.50 Years: 52.50 Types: Cigarettes Start date: 09/13/1975 Quit date: 09/13/2012 ??? Smokeless tobacco: Never Used ??? Alcohol use No Comment: rarely ??? Drug use: No Comment: no longer using. ??? Sexual activity: Yes Partners: Male Other Topics Concern ??? Not on file Social History Narrative from [place] (ETOH) Son Alexi and Daughter Yadira Currently living alone in [place] in [facility] Family History Problem Relation Age of Onset [...] Neg Hx ??? Blindness Neg Hx Medications (Not in a hospital admission) Current Facility-Administered Medications Medication Route Frequency ??? azithromycin (ZITHROMAX) 500 mg in dextrose 5% (D5W) 250 mL IVPB intravenous Now ??? cefTRIAXone (ROCEPHIN) 1,000 mg in sodium chloride (NS MBP) 0.9 % 50 mL IVPB intravenous Now ??? magnesium sulfate 2 g in water 50 mL intravenous Now Current Outpatient Prescriptions Medication Sig Dispense Refill ??? baclofen (LIORESAL) [...] directed 3 Inhaler 3 ??? [START ON 02/18/2017] HYDROcodone-acetaminophen (NORCO) 5-325 mg tablet Take 1-2 Tabs by mouth every 6 hours as needed for up to 12 days for Pain. Earliest Fill Date: 02/18/17 Daily Max: 8 Tabs 112 Tab 0 ??? [START ON 01/21/2017] HYDROcodone-acetaminophen (NORCO) 5-325 mg tablet Take 1-2 Tabs by mouth every 6 hours as needed for up to 28 days for Pain. Earliest Fill Date: 01/21/17 Daily Max: 8 Tabs 112Tab 0 ??? HYDROcodone-acetaminophen (NORCO) 5-325 mg tablet Take 1-2 Tabs by mouth every 6 hours as needed for up to 28 days for Pain. Earliest Fill Date: 12/23/16 Daily Max: 8 Tabs 112 Tab 0 [...] 2 caps (600mg) 60 Cap 4 ??? methylphenidate (RITALIN;METHYLIN) 20 mg tablet Take 2 tabs by mouth in the morning. Earliest Fill Date: 12/17/16 60 Tab 0 ??? methylphenidate (RITALIN;METHYLIN) 10 mg tablet Take one tab in the afternoon for narcolepsy. Earliest Fill Date: 12/17/16 30 Tab 0 ??? montelukast (SINGULAIR) 10 [...] 3 ??? sumatriptan (IMITREX) 50 mg tablet Take 1 tablet by mouth as needed for migraine. Daily maximumdose: 100 mg. Patient averages 12 headaches per month. 9 Tab 2 ??? tamsulosin (FLOMAX) 0.4 mg capsule Take 1 Cap by mouth daily. 90 Cap 3 ??? tiotropium bromide (SPIRIVA RESPIMAT) 1.25 mcg/actuation mist Inhale 2.5 mcg as directed daily.12 g 3 ??? zolpidem (AMBIEN) 5 mg tablet Take 1 Tab by mouth at bedtime as needed for Sleep. Daily Max: 5 mg 28 Tab 5 Allergies Allergies Allergen Reactions ??? Toradol [Ketorolac Tromethamine] Hives ??? Motrin [Ibuprofen] Itching Objective: Blood pressure 101/66, pulse (!) 114, temperature 37.7 ??C (99.9 ??F), temperature source Temporal,resp. rate (!) 32, last menstrual period 01/11/1987, SpO2 98 %. Physical Exam: Gen: sittingin bed, cooperative, in moderate respiratory distress HEENT: head atraumatic/normocephalic, EOM intact, PERRL, mucous membranes dry, no pharyngeal erythema/exudate, no cervical lymphadenopathy Cardiac: heart rate tachycardic, regular rhythm, +S1/S2, no murmurs/clicks/rubs, no JVD Respiratory: tachypneic on HFNC, able to speak in 5-6 word bursts, air movement diminished at the bases B/L with diffuse expiratory wheezing mid-lower lung dalal B/L and coarse breath sounds diffusely B/L lung dalal GI: abdomen soft, non-distended, no tenderness to palpation all 4 quadrants, normoactive bowel sounds all 4 quadrants : no ospina in place Musculoskeletal: 5/5 strength B/L upper and lower extremities, moving all 4 extremities equally Extremities: warm and well perfused, no peripheral edema, 2+ DP/PT, radial pulses B/L Skin: no obvious rashes/sores Neuro: A&Ox3, +facial symmetry, tongue midline on protrusion ECG: sinus tachycardia, no axis deviation, no ST/T wave changes concerning for ischemia Data Review: CBC: Recent Labs 12/26/162231 WBC 12.85* HGB 11.8 HCT 34.1* MCV 91 PLT 259 BMP: Recent Labs 12/26/162231 NA 142 K 3.3* CL 109 CO2 20* BUN 11 CREATININE 0.67 MG 1.6* CALCIUM 8.5 CALCCA 8.9 LFTs: Recent Labs 12/26/162231 ALT 23 AST 27 ALKPHOS 100 TBIL <0.5 CONJBILI 0.0 UNCONJBILI 0.0 TP 5.8* LABALBU 3.5 Recent Labs 12/26/16 223 LIPASE 22 ABGs: Recent Labs 12/26/16 2342 PHISTAT 7.39 PCOISTAT 34* POISTAT 49* POCTCO2 21* BDART 4 POCFIO2 44 Radiology Images: - CXR: imaging/report reviewed - increased patchy opacities in the B/L mid and lower lung dalal that appear worsened from previous CXR Assessment: 55 y.o. female w/ PMH COPD (not currently on home O2), asthma, chronic back pain/fibromyalgia, and narcolepsy who presents with 1 day of low grade fever and vomiting, as well as progressive SOB and wheezing. In the ED she has diffuse wheezing on examination requiring HFNC to maintain oxygenation. Admitted to MICU for acute on chronic hypoxemic respiratory failure secondary to COPD exacerbation, which is likely secondary to an underlying viral or bacterial pulmonary infection given new opacitieson CXR. Plan: PULM: Acute on chronic hypoxemic respiratory failure 2/2 COPD exacerbation, which is likely 2/2 underlying viral/bacterial illness. Could also be 2/2 asthma exacerbation as she has a h/o this. No risk factors for PE and d-dimer <200. Respiratory status is tenuous and she is at high risk for requiring intubation. - HFNC for now - titrate to maintain O2 sat >90% - Can try BiPAP again if needed and medicate for anxiety - S/p methylprednisolone 125 mg IV x1 in ED, cont methylpred 60 mg IV q6h - Cont CTX, azithro for CAP coverage (see infectious below) - Mg 2g IV x1 in ED - Duonebs q4h - Albuterol nebs q2h PRN - Morphine 2 mg IV q4h PRN - for WOB and pain (given use of norco [employer]) - Consider CT chest in coming days if lack of clinical improvement - Cont fexofenadine 180 mg daily for allergic rhinitis - Cont Advair BID - Cont montelukast 10 mg daily - Cont roflumilast 500 mcg daily - Cont spiriva daily - Low threshold to intubate if increasing work of breathing - Hold sedating meds until respiratory status improves CV: sinus tachycardia likely 2/2 respiratory distress. No chest pain, negative troponin, and no ischemic EKG changes. No h/o HTN. No cardiac meds [employer]. Echo in 2013 with EF 55-60%, normal left atrial size, and normal pulmonary artery pressures. - Cont to monitor RENAL: No evidence of SETH. Hypokalemia and hypomagnesemia on admission labs. - KCl 40 mEq x1 - Mg 4g IV - Cont to monitor with daily lytes, creatinine - Is&Os - Hold tamsulosin for now, can resume if remains hemodynamically stable ID: Reticular opacities on CXR, mild leukocytosis, low-grade fever, emesis, and dry cough concerning for underlying viral vs. bacterial pulmonary process. Respiratory viral swab pending and will treat for CAP. - Cont ceftriaxone 1g daily - S/p azithromycin 500 mg x1, cont 250 mg daily x4 additional days - F/u influenza swab - Strep/legionella urinary antigens obtained - F/u blood cultures - Sputum cultures ordered - Monitor hemodynamics closely ENDO: no h/o DM II - Check daily serum glucose while on high dose steroids GI: no acute issues at this time. Nausea/vomiting [employer] resolved. - On omeprazole [employer], cont pantoprazole 40 mg daily while inpatient - NPO for now in case of need for intubation H/O: no acute issues at this time, mild leukocytosis 2/2 underlying illness - Cont to monitor with daily CBC NEURO/PSYCH: h/o chronic back pain, fibromyalgia, narcolepsy, anxiety/depression - Hold [employer] baclofen PRN until respiratory status improves - Hold [employer] doxycycline for rosacea while on above ABX - Hold [employer] hydrocodone-acetaminophen until respiratory status improves - Hold [employer] pregabalin 300 mg BID until respiratory status improves - Hold [employer] zolpidem PRN - Hold methylphenidate for narcolepsy (she does not take when in the hospital) - Cont ropinerole 2 mg QHS for restless legs - Cont sertraline 200 mg daily LINES: -PIVs FEN: -NPO except ice chips in case of need for intubation PPX: -GI-pantoprazole (on omeprazole [employer]) -DVT-enoxaparin 40 mg subq daily Code status: Full Code - d/w patient on admission DISPO: uncertain, admit to MICU Plan discussed with DR. Harrington. Cate Bro MD PGY-2 Pager [phone] 12/27/2016 1:26 documented in this encounter ED Notes * Yajaira De La Paz RN - 12/27/2016 0200 EDT Report given to CHRIS Martins in the ICU. * Ethan Magana - 12/26/2016 2235 EDT Blood drawn via saline lock per protocol, rainbow tube(s) sent to lab per order. * Siena Sesay MD - 12/26/2016 2223 EDT DOS: 12/26/2016 HPI HPI Comments: I, Silvia Pichardo, am scribing for No att. providers found while he/she is personally performing the service. Silvia Pichardo 12/26/2016 22:23 Maria Del Rosario Meadows is a 55 y.o. female with a history of chronic back pain, obesity, asthma, narcolepsy, chronic pain syndrome, severe major depression, degeneration of lumbar or lumbosacral intervertebral disc, GERD, anxiety, fibromyalgia, and IBS who presets with SOB that began at home immediately prior to arrival. Pt states she did not feel well last week. She had a fever last night of 99.9 (baseline 94/95) and four episodes of emesis. She also has a minor dry cough and overall malaise. Pt denies rashes or wounds. She denies urinary symptoms as well as cardiac symptoms. Today she had multiple friends and family members over to her house to celebrate her upcoming birthday. Multiple people were smoking in the house. She noted that her shortness of breath, malaise, fatigue, and cough worsened throughout the day. She was brought to the emergency department this evening. Triage EMT noted that the patient's oxygen saturations were in the 70s, and she was brought back immediately to a room for further assessment. The patient did quit smoking. She is not currently on oxygen at home. The history is provided by the patient and the EMS personnel. Shortness of Breath Associated symptoms: cough, fever and vomiting Associated symptoms: no neck pain and no rash The patient's past medical, family and social history was reviewed and updated as needed. Review of Systems Review of Systems Constitutional: Positive for chills, fatigue and fever. HENT: Negative for congestion and rhinorrhea. Eyes: Negative for visual disturbance. Respiratory: Positive for cough and shortness of breath. Gastrointestinal: Positive for vomiting. Negative for diarrhea and nausea. Endocrine: Negative for polydipsia and polyuria. Genitourinary: Negative for difficulty urinating, dyspareunia, dysuria and urgency. Musculoskeletal: Negative for neck pain and neck stiffness. Skin: Negative for rash and wound. Allergic/Immunologic: Negative for immunocompromised state. Neurological: Negative for dizziness and light-headedness. Psychiatric/Behavioral: Negative for confusion. The patient is not nervous/anxious. Allergies Allergen Reactions ??? Toradol [Ketorolac Tromethamine] Hives ??? Motrin [Ibuprofen] Itching Vital Signs Vitals Reassessment?: Yes Temp: 37.7 ??C (99.9 ??F) Temp src: Temporal Pulse: (!) 114 Resp: 30 SpO2: 94 % BP: 101/66 BP MAP: 75 mm Hg BP Device: BP Machine O2 Flow Rate (L/min): 6 l/min O2 Device: Nasal cannula Physical Exam Constitutional: She is oriented to person, place, and time. She appears well- developed and well-nourished. She appears distressed. HENT: Head: Normocephalic and atraumatic. Mouth/Throat: Mucous membranes are dry. Eyes: Pupils are equal, round, and reactive to light. Neck: Normal range of motion. Neck supple. Cardiovascular: Regular rhythm and normal heart sounds. Tachycardia present. Pulmonary/Chest: She is in respiratory distress. She has no wheezes. Tight lungs Abdominal: Soft. There is no tenderness. Musculoskeletal: Normal range of motion. She exhibits no edema. Neurological: She is alert and oriented to person, place, and time. Skin: Skin is warm and dry. Psychiatric: She has a normal mood and affect. Nursing note and vitals reviewed. RESULTS Relevant Data Procedures None ED COURSE A medical screening exam was performed. 55 y.o with a signficant past medical history presents to the ED with shortness of breath that began earlier today. She has had low-grade fevers, progressive malaise, and a nonproductive cough over the past several days. Differential diagnosis includes COPD exacerbation, pneumonia, influenza, congestive heart failure exacerbation. Patient is immediately placed in a room, patient is placed on the case monitor, and supplementaloxygen is provided with improvement in her oxygen saturations. She does remain tachypneic, however,and BiPAP is initiated. She does not tolerate this well. High flow nasal cannula is attempted with i mprovement. Physical exam revealed pt was mildly distressed. Mucous membranes dry. Tachycardic. Lungs were tight with no wheezing. No rales or rhonchi. Exam otherwise unremarkable. The patient had an EKG which was independently reviewed and interpreted by me. (Sinus at 105 bpm, regular normal access, normal intervals, no ST elevations or depressions. D-dimer and troponin negative. Patient continues to improve with the high flow nasal cannula. Arterial blood gases obtained, and it shows a normal pH and a normal PCO2. However, the patient is hypoxemic with a PaO2 of 49. I believe that the patient will require MICU level of care for respiratory support and increased work of breathing. Pt signed out to Debo Rocha pending re-evaluation. ASSESSMENT AND PLAN Final diagnoses: None DISPOSITION: No disposition on file The patient's pain was managed to an adequate level weighing risk vs. benefit of further medications. Upon departure from the Emergency Department, the patient's pain was 0 on a zero to ten scale. Condition at departure from the Emergency Department: Stable PCP: Jean Munoz MDM Number of Diagnoses or Management Options Amount and/or Complexity of Data Reviewed Clinical lab tests: ordered and reviewed Tests in the radiology section of CPT??: ordered and reviewed Tests in the medicine section of CPT??: ordered and reviewed Independent visualization of images, tracings, or specimens: yes Critical Care Total time providing critical care: 30-74 minutes a total of 30 minutes is spent evaluating the patient, reviewing medical records and data obtained today, and discussing the case with consulting providers. This documentation is recorded by iSlvia Pichardo acting as Scribe under the direction and presence of Siena Sesay MD. Siena Sesay MD: I personally performed the services recorded by the scribe in my presence.I confirm the scribe's documentation has been reviewed by me to accurately and completely record mywork, treatment, procedures, and medical decision making. 12/26/2016 22:23 No flowsheet data found. documented in this encounter Miscellaneous Notes * Plan of Care - Didier Ovalles RN - 01/04/2017 1724 EDT BP 108/58 (BP Cuff Location: Left arm, Patient Position: Sitting) Pulse 84 Temp 35.6 ??C (96.1 ??F) (Tympanic) Resp 22 Ht 162.6 cm (64.02) Wt 86.6 kg (190 lb 14.7 oz) LMP 01/11/1987 SpO2 98% BMI 32.75 kg/m2 Patient is medically cleared to be discharged to home. Lung sounds are coarse with small amounts ofexpiratory wheezing. Bowel sounds are + X 4, patient had X- Lg BM 01/03. Complained of 6/10 pain thisam to her lower back, medicated with Oxycodone 5 mg. Patient states pain is 0/10. Patient teaching given: Blood glucose monitoring instructions 2 X daily, handling high and low glucose results, and how to use glucose monitoring machine provided by the floor. Patient did return demonstration, and stated understanding. Patient instructed to vegetable picker prescriptions at [facility] in [place]. No further issues noted. Patient taken out via wheel chair with her family. * Plan of Care - Manjeet Chamberlain RN - 01/04/2017 0142 EDT Problem: PAIN Goal: Patient???s pain/discomfort is manageable/tolerable Outcome: Ongoing Data: Patient had concerns about pain control. Patient was educated about PRN medications and timesthat they could be given. Action: Patient educated about pain relievers and the need to ask for medications that were prescribed as needed. Response: Patient used her call light to inform that she was having some pain and would like to have her prescribed pain relieving medications. MEdications were given and patient is resting with her eyes closed with even repirations. Manjeet Chamberlain RN 01/04/2017 1:40 * Plan of Care - Didier Ovalles RN - 01/03/2017 1807 EDT Problem: PAIN Goal: Patient???s pain/discomfort is manageable/tolerable Data: Complained of increased headache pain 8/10 noted, with generalized back pain. Action: Fuorecet one tablet given, oxycodone 5 mg PO given. Response: Patient resting comfortable in the chair, waiting for her dinner. No further issues noted. Call light in reach safety maintained. Didier Ovalles RN 01/03/2017 18:05 * Plan of Care - Juanis Black RN - 01/03/2017 4904 EDT Problem: Daily Care Plan Goals Goal: Care Plan Documentation Outcome: Met This Shift Data: Hospital day #7 for acute respiratory failure. Patient SPO2 above 92% this shift on 3 L NC. Lungs wheezy on ascultation. Denies pain. Patient having difficult time falling asleep beginning of shift. Action: Patient given prn sleeping aid, see MAR. Response: Patient sleeping comfortably. WCM. Juanis Black RN 01/03/2017 4:36 * Plan of Care - Susan Das RN - 01/02/2017 1720 EDT Pt arrived In room 327-2 Pt alert and oriented Lungs wheezy and diminished. O2 on 3l NC. Pt sob on exhertion. BP 120/55 (BP Cuff Location: Right arm, Patient Position: Semi fowlers) Pulse 84 Temp36.2 ??C (97.2 ??F) (Tympanic) Resp 20 Ht 162.6 cm (64.02) Wt 86.6 kg (190 lb 14.7 oz) LMP01/11/1987 SpO2 93% BMI 32.75 kg/m2 * Transfer Summary (Intrafacility) - Amarjit Camara MD - 01/02/2017 1019 EDT Internal Medicine MICU Transfer Note Admission Date: 12/27/2016 Date of Service: 01/02/2017 PCP: Jean Munoz CC: SOB Subjective: HPI: Maria Del Rosario Meadows is a 56 y.o. COPD (no baseline O2 requirement, FEV1 65%), possible asthma, prediabetes, fibromyalgia, chronic pain syndrome and narcolepsy who presented to [facility] ED on 12/27 with SOB and wheezing. The patient reportedly presented to the ED on 12/28 for a one day history of progressive SOB, emesisand a non-productive cough for several days prior to admission. In the ED Chest xray showed multifocal patchy opacities in bilateral lower lung dalal. She had significant hypoxia requiring high [id number] and so was admitted to the medical ICU for high flow nasal canula, she was notably unable to tolerate BIPAP. For concern for community-acquired pneumonia the patient was treated with ceftriaxone and azithromycin. She was also treated for a COPD exacerbation with steroids and nebulizers. In the MICU there was concern that she had a component of diastolic heart failure and she was diuresed with 5 litres of fluid removed. Her oxygen requirement improved and she was transfer to the internal medicine service on 01/02 for further management of her COPD exacerbation in the setting of viral pneumonia. Today Maria Del Rosario appears well, she denies any acute complaints other then mild SOB and chronic cough. Shestates she is feeling well and is happy to hear she will be leaving the ICU. She confirms that she does not use oxygen at home and that most of her COPD medications are prescribed by her PCP, howeverbrenda has seen Dr. Manzano in the past. She denies current fevers, chills, abdominal pain, constipation, diarrhea or sputum production. ?? Review of Systems Complete 10 point review of systems performed. Pertinent items noted above. Remaining ROS otherwisenegative. Allergies Allergies Allergen Reactions ??? Toradol [Ketorolac Tromethamine] Hives ??? Motrin [Ibuprofen] Itching PMH PSH Past Medical History: Diagnosis Date [...] 01/10/09 ??? Neuralgia, neuritis, and radiculitis, unspecified 2/24/10 ??? Otalgia 03/18/04 ??? Pelvic pain in [...] ??? [facility] ??? CERVICAL SPINE SURGERY 12/31/08 discectomy, [...] acromioplasty Social History Family history Social History Social History ??? Marital status: Spouse name: N/A ??? Number of children: N/A ??? Years of education: N/A Occupational History ??? None Social History Main Topics ??? Smoking status: Former Smoker Packs/day: 1.50 Years: 52.50 Types: Cigarettes Start date: 09/13/1975 Quit date: 09/13/2012 ??? Smokeless tobacco: Never Used ??? Alcohol use No Comment: rarely ??? Drug use: No Comment: no longer using. ??? Sexual activity: Yes Partners: Male Other Topics Concern ??? Not on file Social History Narrative from [place] (ETOH) Son Alexi and Daughter Yadira Currently living alone in [place] in [facility] Family History Problem Relation Age of Onset [...] Neg Hx ??? Blindness Neg Hx Current Facility-Administered Medications Medication Route Frequency ??? acetaminophen (TYLENOL) tablet 1,000 mg oral Q6H PRN ??? albuterol (ACCUNEB) nebulizer solution 2.5 mg nebulization Q2H PRN ??? jyywhucttd-rashkviebmgqh-ukxsvsbr (FIORICET, ESGIC) 50-325-40 mg per tablet 1 Tab oral Q4H PRN ??? calcium carbonate (TUMS) 200 mg calcium (500 mg) per chewable tablet tablet,chewable 1 Tab oralQID PRN ??? cycloSPORINE (RESTASIS) 0.05 % ophthalmic emulsion 1 Drop both eyes BID ??? dextrose 50 % solution 12.5 g intravenous PRN ??? docusate sodium (COLACE) capsule 200 mg oral BID PRN ??? enoxaparin (LOVENOX) injection 40 mg subcutaneous DAILY ??? fexofenadine (JUDITH) 12 hr tablet 180 mg oral DAILY ??? fluticasone (FLONASE) nasal spray 100 mcg nasal - both Daily PRN ??? glucagon (human recombinant) injection 1 mg intramuscular PRN ??? guaiFENesin (MUCINEX) SR tablet 600 mg oral BID ??? hypromellose (ISOPTO TEARS) 0.5 % ophthalmic solution 1 Drop both eyes Q4H PRN ??? insulin aspart (NOVOLOG FLEXPEN) injection 5 Units subcutaneous TID WC ??? insulin aspart (NOVOLOG FLEXPEN) injection subcutaneous TID WC ??? insulin aspart (NOVOLOG FLEXPEN) injection subcutaneous QHS ??? insulin NPH (HUMULIN N, NOVOLIN N) injection 10 Units subcutaneous DAILY ??? ipratropium-albuterol (DUONEB) 0.5 mg-3 mg(2.5 mg base)/3 mL nebulizer solution 3 mL nebulization QID ??? magnesium citrate solution 296 mL oral Daily PRN ??? mometasone-formoterol (DULERA) 200-5 mcg/actuation inhaler 2 Puff inhalation BID ??? montelukast (SINGULAIR) tablet 10 mg oral DAILY ??? morphine solution 2.5-5 mg oral Q2H PRN ??? nystatin (MYCOSTATIN) suspension 500,000 Units oral QID ??? ondansetron (PF) (ZOFRAN) injection 4 mg intravenous Q4H PRN ??? oxyCODONE (ROXICODONE) immediate release tablet 5 mg oral Q6H PRN ??? pantoprazole (PROTONIX) tablet 40 mg oral DAILY ??? PEG 3350-Electrolytes (MIRALAX) packet 17 g oral DAILY ??? predniSONE (DELTASONE) tablet 60 mg oral DAILY ??? pregabalin (LYRICA) capsule 300 mg oral BID ??? ramelteon (ROZEREM) tablet 8 mg oral AT BEDTIME PRN ??? roflumilast tablet 500 mcg oral DAILY ??? rOPINIRole (REQUIP) tablet 2 mg oral QHS ??? senna (SENOKOT) tablet 2 Tab oral QHS ??? sertraline (ZOLOFT) tablet 200 mg oral QHS ??? sodium chloride (OCEAN) 0.65 % nasal spray 1 [place] nasal - both PRN Prescriptions Prior to Admission Medication ??? baclofen (LIORESAL) 10 mg tablet ??? Ciclesonide 50 mcg spray,non-aerosol ??? cycloSPORINE (RESTASIS) 0.05 % ophthalmic emulsion ??? docusate sodium (COLACE) 100 mg capsule ??? doxycycline (VIBRAMYCIN) 100 mg capsule ??? fexofenadine (JUDITH) 180 mg tablet ??? fluticasone-salmeterol (ADVAIR HFA) 230-21 mcg/actuation inhaler ??? [START ON 02/18/2017] HYDROcodone-acetaminophen (NORCO) 5-325 mg tablet ??? [START ON 01/21/2017] HYDROcodone-acetaminophen (NORCO) 5-325 mg tablet ??? HYDROcodone-acetaminophen (NORCO) 5-325 mg tablet ??? HYDROcodone-acetaminophen (NORCO) 5-325 mg tablet ??? hydroxypropyl methylcellulose (ISOPTO TEARS) 0.5 % ophthalmic solution ??? ipratropium-albuterol (DUONEB) 0.5 mg-3 mg(2.5 mg base)/3 mL nebulizer solution ??? levalbuterol (XOPENEX HFA) 45 mcg/actuation inhaler ??? LYRICA 300 mg capsule ??? methylphenidate (RITALIN;METHYLIN) 20 mg tablet ??? methylphenidate (RITALIN;METHYLIN) 10 mg tablet ??? montelukast (SINGULAIR) 10 mg tablet ??? omeprazole (PRILOSEC) 40 mg capsule ??? ondansetron (ZOFRAN) 4 mg tablet ??? promethazine (PHENERGAN) 25 mg tablet ??? roflumilast (DALIRESP) 500 mcg tablet ??? rOPINIRole (REQUIP) 2 mg tablet ??? sertraline (ZOLOFT) 100 mg tablet ??? sumatriptan (IMITREX) 50 mg tablet ??? tamsulosin (FLOMAX) 0.4 mg capsule ??? tiotropium bromide (SPIRIVA RESPIMAT) 1.25 mcg/actuation mist ??? zolpidem (AMBIEN) 5 mg tablet Prescriptions Prior to Admission Medication Sig Dispense Refill Last Dose ??? baclofen (LIORESAL) 10 mg tablet Take 1 Tab by mouth 3 times daily as needed (mucles tightness). 180 Tab 3 12/27/2016 ??? Ciclesonide 50 mcg spray,non-aerosol 100 mcg by nasal route daily. 37.5 g 1 12/27/2016 ??? cycloSPORINE (RESTASIS) 0.05 % ophthalmic emulsion Place 1 Drop into both eyes 2 times daily Taking ??? docusate sodium (COLACE) 100 mg capsule Take 1 Cap by mouth 2 times daily as needed for Constipation. Unknown ??? doxycycline (VIBRAMYCIN) 100 mg capsule TAKE ONE CAPSULE BY MOUTH ONE TIME DAILY 90 Cap 3 12/27/2016 ??? fexofenadine (JUDITH) 180 mg tablet Take 1 Tab by mouth daily. 90 Tab 3 12/27/2016 ??? fluticasone-salmeterol (ADVAIR HFA) 230-21 mcg/actuation inhaler INHALE TWO PUFFS BY MOUTH TWICE DAILY as directed 3 Inhaler 3 12/27/2016 ??? [START ON 02/18/2017] HYDROcodone-acetaminophen (NORCO) 5-325 mg tablet Take 1-2 Tabs by mouth every 6 hours as needed for up to 12 days for Pain. Earliest Fill Date: 02/18/17 Daily Max: 8 Tabs 112 Tab 0 Unknown ??? [START ON 01/21/2017] HYDROcodone-acetaminophen (NORCO) 5-325 mg tablet Take 1-2 Tabs by mouth every 6 hours as needed for up to 28 days for Pain. Earliest Fill Date: 01/21/17 Daily Max: 8 Tabs 112Tab 0 Unknown ??? HYDROcodone-acetaminophen (NORCO) 5-325 mg tablet Take 1-2 Tabs by mouth every 6 hours as needed for up to 28 days for Pain. Earliest Fill Date: 12/23/16 Daily Max: 8 Tabs 112 Tab 0 Unknown ??? HYDROcodone-acetaminophen (NORCO) 5-325 mg tablet Take 1 Tab by mouth 4 times daily for 11 daysEarliest Fill Date: 09/23/15 Daily Max: 4 Tabs 44 Tab 0 Taking ??? hydroxypropyl methylcellulose (ISOPTO TEARS) 0.5 % ophthalmic solution Place 1 Drop into both eyes 5 times daily. 12/27/2016 ??? ipratropium-albuterol (DUONEB) 0.5 mg-3 mg(2.5 mg base)/3 mL nebulizer solution Take 3 mL by nebulization every 4 hours as needed for Wheezing. 3 mL 3 12/27/2016 ??? levalbuterol (XOPENEX HFA) 45 mcg/actuation inhaler INHALE TWO PUFFS BY MOUTH EVERY SIX HOURS NEEDED 3 Inhaler 3 12/27/2016 ??? LYRICA 300 mg capsule TAKE ONE CAPSULE BY MOUTH TWICE DAILY. daily max: 2 caps (600mg) 60 Cap ??? methylphenidate (RITALIN;METHYLIN) 20 mg tablet Take 2 tabs by mouth in the morning. Earliest Fill Date: 12/17/16 60 Tab 0 12/27/2016 ??? methylphenidate (RITALIN;METHYLIN) 10 mg tablet Take one tab in the afternoon for narcolepsy. Earliest Fill Date: 12/17/16 30 Tab 0 12/27/2016 ??? montelukast (SINGULAIR) 10 mg tablet Take 1 Tab by mouth daily. 90 Tab 3 12/27/2016 ??? omeprazole (PRILOSEC) 40 mg capsule Take 1 Cap by mouth daily. 90 Cap 3 12/27/2016 ??? ondansetron (ZOFRAN) 4 mg tablet TAKE ONE TABLET BY MOUTH DAILY NEEDED for nausea 30 Tab 3 Unknown ??? promethazine (PHENERGAN) 25 mg tablet Take 1 Tab by mouth every 6 hours as needed for Nausea. 20 Tab 1 Unknown ??? roflumilast (DALIRESP) 500 mcg tablet Take 1 Tab by mouth daily. 90 Tab 3 12/27/2016 ??? rOPINIRole (REQUIP) 2 mg tablet Take 1 Tab by mouth at bedtime. TAKE ONE TABLET BY MOUTH AT BEDTIME 90 Tab 3 12/27/2016 ??? sertraline (ZOLOFT) 100 mg tablet Take 2 Tabs by mouth daily. 180 Tab 3 Taking ??? sumatriptan (IMITREX) 50 mg tablet Take 1 tablet by mouth as needed for migraine. Daily maximumdose: 100 mg. Patient averages 12 headaches per month. 9 Tab 2 Unknown ??? tamsulosin (FLOMAX) 0.4 mg capsule Take 1 Cap by mouth daily. 90 Cap 3 12/26/2016 ??? tiotropium bromide (SPIRIVA RESPIMAT) 1.25 mcg/actuation mist Inhale 2.5 mcg as directed daily.12 g 3 12/26/2016 ??? zolpidem (AMBIEN) 5 mg tablet Take 1 Tab by mouth at bedtime as needed for Sleep. Daily Max: 5 mg 28 Tab 5 Unknown Objective: Blood pressure 101/57, pulse 84, temperature 36.8 ??C (98.2 ??F), temperature source Tympanic, resp. rate 18, height 162.6 cm (64.02), weight 86.6 kg (190 lb 14.7 oz), last menstrual period 01/11/1987, SpO2 93 %. Wt Readings from Last 1 Encounters: 12/27/16 86.6 kg (190 lb 14.7 oz) Body mass index is 32.75 kg/(m^2). Gen: Elderly female, NAD, alert, cooperative, pleasant. Speaking in full sentences HEENT: Oral membranes moist, mildly erythematous, NCAT. Dentition WNL. Neck: JVP WNL. Cervical/supraclavicular LAD negative CV: nml S1/S2, RRR, no murmurs, gallops or rubs. No carotid bruits. Resp: CTA b/l, diffuse inspiratory and expiratory wheezes appreciated in bilateral mid to lower lung dalal, normal work of breathing Abd: soft, NABS, non-distended, NTTP : No ospina present Extr: No appreciated lower extremity edema. Peripheral pulses 2+ at wrist, DP/PT. Neuro: AO x 3. CN III-IX intact grossly. PERRL, EOMI. Skin: No rashes or ecchymoses. Data Review: CBC: Recent Labs 12/31/16 0523 12/31/16 0548 01/01/17 0329 WBC 10.17 10.92 13.18* RBC 4.07 3.93 4.02 HGB 12.8 12.3 12.7 HCT 36.8 36.0 36.6 MCV 90 92 91 MCH 31.4 31.3 31.6 MCHC 34.8 34.2 34.7 PLT 309 321 305 BMP: Recent Labs 12/31/16 0523 12/31/16 0548 01/01/17 0329 NA 139 139 139 K 3.6 4.7 4.2 CL 93* 101 99 CO2 35* 29 30 BUN 21 19 26 CREATININE 0.59 0.52 0.55 MG 2.2 2.2 2.2 PHOS 4.3 3.8 4.0 Microbiology: Blood cultures (12/27) negative Respiratory viral panel: Negative for RSV, influenza, parainfluenza. Metapneumovirus pending Radiology Studies: CXR (12/26); Bilateral mid to lower lung field opacities concerning for PNA Assessment: Maria Del Rosario Meadows is a 56 y.o. female w/ PMH COPD (not currently on home O2), asthma, chronic back pain/fibromyalgia, and narcolepsy who presents with 1 day of low grade fever and vomiting, as well as progressive SOB and wheezing. In the ED she has diffuse wheezing on examination requiring HFNC. Admitted to MICU for acute on chronic hypoxemic respiratory failure secondary to COPD exacerbation, which is likely secondary to an underlying viral or bacterial pulmonary infection. Oxygenation now improved to 2 l on NC and patient transferred to the internal medicine service for further management. Plan: COPD excerbation: Likely 2/2 to viral pneumonia, now improving with downtrending oxygen requirements - Continue to wean O2 as tolerated - Goal SpO2 >88% - Continue oral prednisone, will attempt slow taper from 60 mg to reduce by 10 mg ever ythree days per pulmonology. Plan to start 50 mg tomorrow. - Duoneb q4h scheduled - Dulera BID - Montelukast 10mg daily - Roflumilast 500 mcg daily - Will d/c'd oral morphine solution PRN as patient has not required a dose for nearly a day - Will complete CAP coverage this admission, s/p five doses of azithromycin, day 7/ of ceftriaxonetoday - F/u metapneumovirus RSV panel Prediabetes: HbA1c 6.1% - NPH 10 units daily with steroids (wean as steroids wean) - FSBG QID - Aspart 5 units with meals + SSI Chronic Medical Conditions: Hx narcolepsy, chronic pain pain, fibromyalgia - Continue to hold home baclofen, doxycycline, norco, zolpidem, methylphenidate - Continue home pregabalin 300mg BID - Ropinirole 2mg PO qhs - Sertraline 200mg PO qhs - oxycodone 5 mg q6h prn (to replace home Vicodin) - Tylenol Q6 PRN for breakthrough pain FEN: Consistent carb diet PPX: Lovenox 40 mg daily Code status: Full Dispo: Anticipate likely at least two more days inpatient, most likely dispo early next week Neel Armstrong MD PGY-1, [phone] 01/02/2017 10:20 Attending Attestation: I have interviewed and examined the patient. I have personally reviewed the medication list. I have independently reviewed the lab results, CXR and discussed with Dr Erazo in the MICU I have discussed the case with the resident and agree with the findings and plan of care above. Anyadditions in blue. Date of service: 01/02/2017 Amarjit Camara MD * Plan of Care - Yadira Carballo RN - 01/02/2017 0942 EDT Problem: Daily Care Plan Goals Goal: Care Plan Documentation 01/02/17 0900 Care Plan Focus Area of Focus Respiratory Goal This Shift Maintain SPo2 >92% [id number]) Pt care plan reviewed. Pt is sleeping RRR nonlabored. 0845) pt awake oriented x3- 0900) C/o 8/10 neck and back pain 1120) pt washing up- preferred to do what she can on her own. Call alvarado in reach [phone]) Ready for lunch; set-up c/o GABRIEL asking for [id number] pt sleeping Data: 56 yo woman A&Ox3 on 3 lNC- medicated for chronic back- and Neck pain and GABRIEL Action: See doc flowsheet; See MAR pain improved with medication. Maintaining Spo2>92%. Pt is Dyspneic with exertion- but paces herself. Pt sleeping between meals and after bathing. Response: Continue with care plan Yadira Carballo RN 01/02/2017 9:40 * Plan of Care - Esme Salcido RN - 01/02/2017 0334 EDT Problem: Daily Care Plan Goals Goal: Care Plan Documentation Outcome: Ongoing 01/01/171999 Care Plan Focus Area of Focus Respiratory Goal This Shift MAINTAIN O2 >90% OFF HIFLO Data: Pt admitted to MICU for COPD exacerbation. Pt weaned off of HiFlo to 4L NC prior to shift change 01/01. Action: Pt monitored for exacerbation, dizziness, SOB. Pt kept on 4L NC overnight. Response: Pt tolerated 4L NC throughout night, up to commode with no issues, no exacerbations. ROS Negative. Esme Salcido RN 01/02/2017 3:31 * Plan of Care - Magaly Contreras RN - 01/01/2017 1850 EDT Problem: Daily Care Plan Goals Goal: Care Plan Documentation Outcome: Ongoing 01/01/17 1600 Care Plan Focus Area of Focus Respiratory Goal This Shift wean HiFlo, maintain tolerable pain level Data: Pt on HFNC 45% 30L, titrated to 35% 20L and then 4.5L NC 1730. Alert and oriented, CAM negative. Discussion at rounds: PRNs ordered to help with BM, none given; BM x1, very large soft. Fluid goals, net even. Voiding on commode, urine output 325mL plus one unmeasured. OOB to chair, x1 assist, tolerated well; denies SOB, dizziness, pain. Patient complaints of back pain, oxycodone, tylenol, and morphine PRN per MAR. BG during the day rising: Patient drinking pepsi, grape juice, whole milk, eating cheese, crackers,sandwich, czech muffin, etc. Action: Lower carb meal options and water encouraged. Repositions self, HOB 30-45*; Side rails x2, call alvarado within reach. Using personal cell phone and laptop. Response: Patient reports feeling better, but a little tired today. Plan: May order long acting insulin. Personal drinks in fridge. * Plan of Care - Kaiser Lee RN - 01/01/2017 0605 EDT Problem: Daily Care Plan Goals Goal: Care Plan Documentation Outcome: Ongoing 12/31/161999 Care Plan Focus Area of Focus Pain/ Comfort Goal This Shift pain <6 to allow for sleep Data: pt has history of chronic pain and headaches. She states that when her pain is well controlled it is usually a 6/10. Action: medicated for pain as requested by pt. Response: pt was able to sleep intermittently through out the shift. The pain came back in the morning and the pt was provided with appropriate pain medication. Kaiser Lee RN 01/01/2017 6:03 * Plan of Care - Magaly Contreras, CHRIS - 12/31/2016 1552 EDT Problem: Daily Care Plan Goals Goal: Care Plan Documentation Outcome: Ongoing 12/31/16 1535 Care Plan Focus Area of Focus Respiratory Goal This Shift SpO2 > 92% Data: Pt on HFNC 50% 35L. Alert and oriented, CAM negative. Ospina, urine output 785mL out. Ospina removed 1530. OOB to chair, x1 assist, tolerated well; denies SOB, dizziness, pain. Patient complaints of headache earlier in shift, dilaudid and tylenol PRN. BG at 1200 370, 5u meal time insulin added to sliding scale. Action: Repositions self, HOB 30-45*; Side rails x2, call alvarado within reach. Using personal cell phone and laptop. CHG bath completed. Response: Patient reports feeling better, glad to get cleaned up and OOB. Plan: Starting IV ceftriaxone tonight. MICU team may order acetazolamide 01/01/17 to treat alkolosis dependent on fluid status and labs, goals moving forward to keep fluid net even. coming to visit later. Patient wants to wear her own pajamas and underwear. * Plan of Care - Felicita Crockett, RN - 12/31/2016 0729 EDT Problem: Daily Care Plan Goals Goal: Care Plan Documentation 12/31/16 0723 Care Plan Focus Area of Focus Respiratory Goal This Shift 02 sat > 91%, ease of resp. Data: VSS, afebrile. NSR. Labs wnl x K 3.6, no prn replace. orders. On HFNC .50,30L c gd O2 sats, TT down from .60. C/O GABRIEL, rec'd Fioricet, c/o back + rib pain, rec'd Oxycodone. Able to sleep p med. Min. PO. Ospina drained adeq. amt. Gets Lasix daily. Action: Monitoring. Response: Stable. HFNC TT down sl. Felicita Crockett RN 12/31/2016 7:23 * Plan of Care - Mona Lewis RN - 12/30/2016 1549 EDT Problem: Daily Care Plan Goals Goal: Care Plan Documentation Outcome: Ongoing 12/30/16 1534 Care Plan Focus Area of Focus Respiratory Goal This Shift agressive pulm toilet 1510- Report received from Graciela Guardado Pt in bed asleep Data: Pt admitted with resp distress. Action: Encourage aggressive pulm toilet Response: Ongoing Mona Lewis RN 12/30/2016 15:48 * Plan of Care - Graciela Roper RN - 12/30/2016 0737 EDT Problem: Daily Care Plan Goals Goal: Care Plan Documentation Outcome: Ongoing 12/30/16 0700 Care Plan Focus Area of Focus Respiratory Goal This Shift adequate oxygenation Data: patient requiring HFNC for adequate oxygenation. Rapidly desaturates with activity/eating/ADLs Action: meds per orders. Wean oxygen as tolerated. Response: stable but tenuous at this time. CTM Graciela Roper RN 12/30/2016 7:36 1130: oob to recliner via lift. Tolerated well. Patient reports head ache much improved after having RT reduce the flow rate on her HFNC. Agreed to changing pain meds to PO, as well as PO ABX and steroids. VS now Q4 hours with continuous pulse ox. Telemetry d/c'd. * Plan of Care - Adrianne Westbrook RN - 12/30/2016 0519 EDT Problem: Daily Care Plan Goals Goal: Care Plan Documentation 12/29/161999 Care Plan Focus Area of Focus Pain/ Comfort Goal This Shift encourage rest and decrease pain in head to 5/10 or better Data: 56 year old patient, admitted on 12/27 for respiratory failure. No acute events during the day. Plan for shift to encourage rest and decrease pain in head to 5/10 or less. Action: Prn morphine given for pain in ribs for coughing and for pain in head prn. Pain max was 10/10. Combination of Imitrex and morphine got head pain lowest to 4/10. Patient able to sleep intermittently but states rested well. Response: Patient resting in bed, appears comfortable. Will continue to monitor closely. Adrianne Westbrook RN 12/30/2016 5:15 * Plan of Care - Graciela Roper RN - 2016 0744 EDT Problem: Daily Care Plan Goals Goal: Care Plan Documentation Outcome: Ongoing 12/29/16 0700 Care Plan Focus Area of Focus Respiratory Goal This Shift maintain adequate oxygenation Data: patient admitted with COPD/asthma exacerbation requiring HFNC. Patient had episodes of desaturations to 77% with minimal exertion (bathing/brushing teeth/eating). FIO2 was increased and titrated as needed to maintain O2 saturation >90%. Action: monitor for increased work of breathing/desaturation. Titrate oxygen as needed/tolerated. Response: CTMaged Roper RN 2016 7:39 0830: patient request my pain meds for head ache. Reports feeling tired. Medicated with morphine. * Plan of Care - Graciela Roper RN - 12/28/2016 0834 EDT Problem: Daily Care Plan Goals Goal: Care Plan Documentation Outcome: Ongoing 12/28/16 0800 Care Plan Focus Area of Focus Respiratory Goal This Shift maintain adequate oxygenation Data: patient with PMH including COPD/asthma. Admitted to MICU with increased SOB. Failed bipap andplaced on HFNC. Action: meds per orders. Monitor respiratory status. Response: noted to be dyspneic at rest. Medicated with iv morphine. CTMaged Roper RN 12/28/2016 8:33 1055: patient reporting migraine. She feels it is likely secondary to the frequent albuterol nebs. imitrex order requested. 13: patient reports little improvement with headache after tylenol. Patient received additional dose of iv morphine. 1345: echo at the bedside. 16: diet advanced. Patient bathed. Had a coughing spell and desaturated to the high 70's. Slowly recovered and back to wnl. 1830: medicated with iv morphine for persistent head ache. Medicated earlier with tylenol with no relief. * Plan of Care - Amanda Child RN - 12/27/2016 1448 EDT Problem: Daily Care Plan Goals Goal: Care Plan Documentation Outcome: Ongoing 12/27/16 0740 Care Plan Focus Area of Focus Respiratory Goal This Shift pt will maintain sats>90% Data: Pt is maintaining her sats>90% but high-flow oxygen is at 70%. Diuresing, appears less dyspneic. Action: Continue with high-flow. May need further diuresis. Response: Maintaining oxygen saturation level but could requiring bipap later. Amanda Child, RN 12/27/2016 14:46 Morphine for intermittent severe dyspnea.=Some relief with dosing, drops her sats with activities to 80%. documented in this encounter Plan of Treatment Upcoming Encounters Date Type Department Care Team (Late st Contact Info) Description 06/29/2024 14:15 EDT Office Visit [facility] [address] [place] [address] Jean Munoz MD [address] [place] [address] Scheduled Referrals Name Type Priority Associated Diagnoses Orde r Schedule AMB CONS/FOLLOW UP PRIMARY CARE PHYSICIAN Outpatient Referral Routine Acute hypoxemic respiratory failure (CMS-HCC) Chronic obstructive pulmonary disease, unspecified COPD type (CMS-HCC) ([facility]) Steroid-induced hyperglycemia Ordered: 01/04/2017 documented as of this encounter Procedures Procedure Name Priority Date/Time Associated Diagnosis Comments GLUCOSE, GLUCOMETER Routine 01/04/2017 1 2:07 EDT EVAL FOR HOME OXYGEN USE Routine 01/04/2017 9:27 EDT GLUCOSE, GLUCOMETER Routine 01/04/2017 8 :36 EDT PHOSPHORUS Routine 01/04/2017 7:12 EDT MAGNESIUM Routine 01/04/2017 7:12 EDT GLUCOSE, GLUCOMETER Routine 01/03/2017 2 0:29 EDT GLUCOSE, GLUCOMETER Routine 01/03/2017 1 7:17 EDT GLUCOSE, GLUCOMETER Routine 01/03/2017 1 2:38 EDT NEBULIZER TX INTERMITTENT Routine 01/03/2017 10:00 EDT GLUCOSE, GLUCOMETER Routine 01/03/2017 8 :24 EDT DRY POWDERED OR METERED DOSE INHALER Routine 01/03/2017 7:00 EDT NEBULIZER TX INTERMITTENT Routine 01/03/2017 6:00 EDT PHOSPHORUS Routine 01/03/2017 5:38 EDT MAGNESIUM Routine 01/03/2017 5:38 EDT GLUCOSE, GLUCOMETER Routine 01/02/2017 2 1:56 EDT DRY POWDERED OR METERED DOSE INHALER Routine 01/02/2017 19:00 EDT NEBULIZER TX INTERMITTENT Routine 01/02/2017 19:00 EDT GLUCOSE, GLUCOMETER Routine 01/02/2017 1 8:01 EDT NEBULIZER TX INTERMITTENT Routine 01/02/2017 15:00 EDT GLUCOSE, GLUCOMETER Routine 01/02/2017 1 2:47 EDT COMPLETE BLOOD COUNT Routine 01/02/2017 10:47 EDT BUN Routine 01/02/2017 10:47 EDT PHOSPHORUS Routine 01/02/2017 10:47 EDT MAGNESIUM Routine 01/02/2017 10:47 EDT CREATININE Routine 01/02/2017 10:47 EDT ELECTROLYTES Routine 01/02/2017 10:47 EDT DRY POWDERED OR METERED DOSE INHALER Routine 01/02/2017 7:00 EDT GLUCOSE, GLUCOMETER Routine 01/02/2017 6 :04 EDT NEBULIZER TX INTERMITTENT Routine 01/02/2017 6:00 EDT NEBULIZER TX INTERMITTENT Routine 01/02/2017 5:55 EDT NEBULIZER TX INTERMITTENT Routine 01/02/2017 5:55 EDT NEBULIZER TX INTERMITTENT Routine 01/02/2017 5:55 EDT NEBULIZER TX INTERMITTENT Routine 01/02/2017 5:55 EDT GLUCOSE, GLUCOMETER Routine 01/01/2017 2 1:00 EDT DRY POWDERED OR METERED DOSE INHALER Routine 01/01/2017 19:00 EDT GLUCOSE, GLUCOMETER Routine 01/01/2017 1 6:58 EDT GLUCOSE, GLUCOMETER Routine 01/01/2017 1 2:35 EDT GLUCOSE, GLUCOMETER Routine 01/01/2017 8 :11 EDT DRY POWDERED OR METERED DOSE INHALER Routine 01/01/2017 7:00 EDT COMPLETE BLOOD COUNT Routine 01/01/2017 3:29 EDT BUN Routine 01/01/2017 3:29 EDT PHOSPHORUS Routine 01/01/2017 3:29 EDT MAGNESIUM Routine 01/01/2017 3:29 EDT CREATININE Routine 01/01/2017 3:29 EDT ELECTROLYTES Routine 01/01/2017 3:29 EDT NEBULIZER TX INTERMITTENT Routine 12/31/2016 22:00 EDT GLUCOSE, GLUCOMETER Routine 12/31/2016 2 0:13 EDT DRY POWDERED OR METERED DOSE INHALER Routine 12/31/2016 19:00 EDT GLUCOSE, GLUCOMETER Routine 12/31/2016 1 8:13 EDT NEBULIZER TX INTERMITTENT Routine 12/31/2016 18:00 EDT RESPIRATORY CARE EVALUATION ONLY Routine 12/31/2016 14:00 EDT NEBULIZER TX INTERMITTENT Routine 12/31/2016 14:00 EDT GLUCOSE, GLUCOMETER Routine 12/31/2016 1 3:50 EDT GLUCOSE, GLUCOMETER Routine 12/31/2016 1 2:25 EDT RESPIRATORY CARE EVALUATION ONLY Routine 12/31/2016 10:00 EDT NEBULIZER TX INTERMITTENT Routine 12/31/2016 10:00 EDT URINALYSIS WITH MICROSCOPIC IF POSITIVE Routine 12/31/2016 9:30 EDT UA REFLEX Routine 12/31/2016 9:30 EDT GLUCOSE, GLUCOMETER Routine 12/31/2016 8 :06 EDT DRY POWDERED OR METERED DOSE INHALER Routine 12/31/2016 7:00 EDT RESPIRATORY CARE EVALUATION ONLY Routine 12/31/2016 6:00 EDT NEBULIZER TX INTERMITTENT Routine 12/31/2016 6:00 EDT COMPLETE BLOOD COUNT Routine 12/31/2016 5:48 EDT BUN Routine 12/31/2016 5:48 EDT PHOSPHORUS Routine 12/31/2016 5:48 EDT MAGNESIUM Routine 12/31/2016 5:48 EDT CREATININE Routine 12/31/2016 5:48 EDT ELECTROLYTES Routine 12/31/2016 5:48 EDT COMPLETE BLOOD COUNT Routine 12/31/2016 5:23 EDT BUN Routine 12/31/2016 5:23 EDT PHOSPHORUS Routine 12/31/2016 5:23 EDT MAGNESIUM Routine 12/31/2016 5:23 EDT CREATININE Routine 12/31/2016 5:23 EDT ELECTROLYTES Routine 12/31/2016 5:23 EDT RESPIRATORY CARE EVALUATION ONLY Routine 12/31/2016 2:00 EDT NEBULIZER TX INTERMITTENT Routine 12/31/2016 2:00 EDT RESPIRATORY CARE EVALUATION ONLY Routine 12/30/2016 22:00 EDT NEBULIZER TX INTERMITTENT Routine 12/30/2016 22:00 EDT GLUCOSE, GLUCOMETER Routine 12/30/2016 2 0:29 EDT DRY POWDERED OR METERED DOSE INHALER Routine 12/30/2016 19:00 EDT RESPIRATORY CARE EVALUATION ONLY Routine 12/30/2016 18:00 EDT NEBULIZER TX INTERMITTENT Routine 12/30/2016 18:00 EDT INPATIENT ADD-ON Routine 12/30/2016 16:5 5 EDT GLUCOSE, GLUCOMETER Routine 12/30/2016 1 6:02 EDT RESPIRATORY CARE EVALUATION ONLY Routine 12/30/2016 14:00 EDT NEBULIZER TX INTERMITTENT Routine 12/30/2016 14:00 EDT GLUCOSE, GLUCOMETER Routine 12/30/2016 1 1:38 EDT RESPIRATORY CARE EVALUATION ONLY Routine 12/30/2016 10:00 EDT NEBULIZER TX INTERMITTENT Routine 12/30/2016 10:00 EDT ECG REPORT - SCANNED 12/30/2016 8:57 EDT GLUCOSE, GLUCOMETER Routine 12/30/2016 8 :05 EDT DRY POWDERED OR METERED DOSE INHALER Routine 12/30/2016 7:00 EDT RESPIRATORY CARE EVALUATION ONLY Routine 12/30/2016 6:00 EDT NEBULIZER TX INTERMITTENT Routine 12/30/2016 6:00 EDT COMPLETE BLOOD COUNT Routine 12/30/2016 2:47 EDT BUN Routine 12/30/2016 2:47 EDT PHOSPHORUS Routine 12/30/2016 2:47 EDT MAGNESIUM Routine 12/30/2016 2:47 EDT HEMOGLOBIN A1C Routine 12/30/2016 2:47 EDT CREATININE Routine 12/30/2016 2:47 EDT ELECTROLYTES Routine 12/30/2016 2:47 EDT RESPIRATORY CARE EVALUATION ONLY Routine 12/30/2016 2:00 EDT NEBULIZER TX INTERMITTENT Routine 12/30/2016 2:00 EDT RESPIRATORY CARE EVALUATION ONLY Routine 2016 22:00 EDT NEBULIZER TX INTERMITTENT Routine 2016 22:00 EDT GLUCOSE, GLUCOMETER Routine 2016 2 0:23 EDT DRY POWDERED OR METERED DOSE INHALER Routine 2016 19:00 EDT GLUCOSE, GLUCOMETER Routine 2016 1 8:17 EDT RESPIRATORY CARE EVALUATION ONLY Routine 2016 18:00 EDT NEBULIZER TX INTERMITTENT Routine 2016 18:00 EDT RESPIRATORY CARE EVALUATION ONLY Routine 2016 14:00 EDT NEBULIZER TX INTERMITTENT Routine 2016 14:00 EDT GLUCOSE, GLUCOMETER Routine 2016 1 2:46 EDT RESPIRATORY CARE EVALUATION ONLY Routine 2016 10:00 EDT NEBULIZER TX INTERMITTENT Routine 2016 10:00 EDT GLUCOSE, GLUCOMETER Routine 2016 7 :52 EDT DRY POWDERED OR METERED DOSE INHALER Routine 2016 7:00 EDT RESPIRATORY CARE EVALUATION ONLY Routine 2016 6:00 EDT NEBULIZER TX INTERMITTENT Routine 2016 6:00 EDT COMPLETE BLOOD COUNT Routine 2016 2:03 EDT BUN Routine 2016 2:03 EDT PHOSPHORUS Routine 2016 2:03 EDT MAGNESIUM Routine 2016 2:03 EDT CREATININE Routine 2016 2:03 EDT ELECTROLYTES Routine 2016 2:03 EDT RESPIRATORY CARE EVALUATION ONLY Routine 2016 2:00 EDT NEBULIZER TX INTERMITTENT Routine 2016 2:00 EDT RESPIRATORY CARE EVALUATION ONLY Routine 12/28/2016 22:00 EDT NEBULIZER TX INTERMITTENT Routine 12/28/2016 22:00 EDT NEBULIZER TX INTERMITTENT Routine 12/28/2016 21:49 EDT NEBULIZER TX INTERMITTENT Routine 12/28/2016 21:49 EDT NEBULIZER TX INTERMITTENT Routine 12/28/2016 21:49 EDT NEBULIZER TX INTERMITTENT Routine 12/28/2016 21:49 EDT NEBULIZER TX INTERMITTENT Routine 12/28/2016 21:49 EDT NEBULIZER TX INTERMITTENT Routine 12/28/2016 21:49 EDT GLUCOSE, GLUCOMETER Routine 12/28/2016 2 1:28 EDT DRY POWDERED OR METERED DOSE INHALER Routine 12/28/2016 19:00 EDT RESPIRATORY CARE EVALUATION ONLY Routine 12/28/2016 18:00 EDT GLUCOSE, GLUCOMETER Routine 12/28/2016 1 7:14 EDT ECHOCARDIOGRAM Routine 12/28/2016 14:09 EDT RESPIRATORY CARE EVALUATION ONLY Routine 12/28/2016 14:00 EDT GLUCOSE, GLUCOMETER Routine 12/28/2016 1 2:45 EDT RESPIRATORY CARE EVALUATION ONLY Routine 12/28/2016 10:00 EDT RESPIRATORY CARE EVALUATION ONLY Routine 12/28/2016 8:20 EDT RESPIRATORY CARE EVALUATION ONLY Routine 12/28/2016 8:20 EDT RESPIRATORY CARE EVALUATION ONLY Routine 12/28/2016 8:20 EDT RESPIRATORY CARE EVALUATION ONLY Routine 12/28/2016 8:20 EDT RESPIRATORY CARE EVALUATION ONLY Routine 12/28/2016 8:20 EDT RESPIRATORY CARE EVALUATION ONLY Routine 12/28/2016 8:20 EDT GLUCOSE, GLUCOMETER Routine 12/28/2016 7 :26 EDT NEBULIZER TX INTERMITTENT Routine 12/28/2016 7:14 EDT NEBULIZER TX INTERMITTENT Routine 12/28/2016 7:14 EDT NEBULIZER TX INTERMITTENT Routine 12/28/2016 7:14 EDT DRY POWDERED OR METERED DOSE INHALER Routine 12/28/2016 7:00 EDT NEBULIZER TX INTERMITTENT Routine 12/28/2016 6:58 EDT NEBULIZER TX INTERMITTENT Routine 12/28/2016 6:58 EDT NEBULIZER TX INTERMITTENT Routine 12/28/2016 6:58 EDT NEBULIZER TX INTERMITTENT Routine 12/28/2016 6:58 EDT PROCALCITONIN Routine 12/28/2016 4:00 EDT COMPLETE BLOOD COUNT Routine 12/28/2016 4:00 EDT BUN Routine 12/28/2016 4:00 EDT PHOSPHORUS Routine 12/28/2016 4:00 EDT MAGNESIUM Routine 12/28/2016 4:00 EDT CREATININE Routine 12/28/2016 4:00 EDT ELECTROLYTES Routine 12/28/2016 4:00 EDT GLUCOSE, GLUCOMETER Routine 12/27/2016 2 3:40 EDT DRY POWDERED OR METERED DOSE INHALER Routine 12/27/2016 19:00 EDT GLUCOSE, GLUCOMETER Routine 12/27/2016 1 7:25 EDT ZZBLOOD GAS, G3 ISTAT Routine 12/27/2016 12:07 EDT GLUCOSE, GLUCOMETER Routine 12/27/2016 1 2:00 EDT INPATIENT ADD-ON Routine 12/27/2016 11:4 0 EDT INPATIENT ADD-ON Routine 12/27/2016 11:4 0 EDT STREPTOCOCCUS PNEUMONIAE ANTIGEN, URINE Routine 12/27/2016 9:11 EDT LEGIONELLA ANTIGEN DETECTION, URINE Routine 12/27/2016 9:11 EDT DRY POWDERED OR METERED DOSE INHALER Routine 12/27/2016 7:00 EDT PROCALCITONIN Routine 12/27/2016 5:58 EDT COMPLETE BLOOD COUNT Routine 12/27/2016 5:58 EDT HIV 1/2 ANTIGEN AND ANTIBODY, 4TH GENERATION Routine 12/27/2016 5:58 EDT BUN Routine 12/27/2016 5:58 EDT PHOSPHORUS Routine 12/27/2016 5:58 EDT NT PRO BNP Routine 12/27/2016 5:58 EDT MAGNESIUM Routine 12/27/2016 5:58 EDT GLUCOSE, SERUM Routine 12/27/2016 5:58 EDT CREATININE Routine 12/27/2016 5:58 EDT ELECTROLYTES Routine 12/27/2016 5:58 EDT INPATIENT ADD-ON Routine 12/27/2016 2:59 EDT DRY POWDERED OR METERED DOSE INHALER Routine 12/27/2016 2:37 EDT DRY POWDERED OR METERED DOSE INHALER Routine 12/27/2016 2:37 EDT DRY POWDERED OR METERED DOSE INHALER Routine 12/27/2016 2:37 EDT NEBULIZER TX INTERMITTENT Routine 12/27/2016 2:37 EDT NEBULIZER TX INTERMITTENT Routine 12/27/2016 2:37 EDT NEBULIZER TX INTERMITTENT Routine 12/27/2016 2:37 EDT NEBULIZER TX INTERMITTENT Routine 12/27/2016 2:37 EDT NEBULIZER TX INTERMITTENT Routine 12/27/2016 2:37 EDT NEBULIZER TX INTERMITTENT Routine 12/27/2016 2:37 EDT NEBULIZER TX INTERMITTENT Routine 12/27/2016 2:37 EDT MRSA PCR Routine 12/27/2016 2:35 EDT RESPIRATORY CARE EVALUATION ONLY Routine 12/27/2016 1:46 EDT RESPIRATORY CARE EVALUATION ONLY Routine 12/27/2016 1:46 EDT RESPIRATORY CARE EVALUATION ONLY Routine 12/27/2016 1:46 EDT RESPIRATORY CARE EVALUATION ONLY Routine 12/27/2016 1:46 EDT RESPIRATORY CARE EVALUATION ONLY Routine 12/27/2016 1:46 EDT RESPIRATORY CARE EVALUATION ONLY Routine 12/27/2016 1:46 EDT BACTERIAL CULTURE, BLOOD Routine 12/27/2016 1:35 EDT BACTERIAL CULTURE, BLOOD Routine 12/27/2016 1:35 EDT RESPIRATORY VIRUS DETECTION Routine 12/27/2016 0:35 EDT RESPIRATORY VIRUS DETECTION Routine 12/27/2016 0:35 EDT BIPAP - RT Routine 12/27/2016 0:13 EDT ZZBLOOD GAS, G3 ISTAT Routine 12/26/2016 23:42 EDT BIPAP - RT Routine 12/26/2016 23:30 EDT CHEST PA AND LATERAL STAT 12/26/2016 23:26 EDT ED/URGENT CARE ADD-ON STAT 12/26/2016 23:05 EDT PROFILE ED CARDIAC PACK STAT 12/27/19 17 22:32 EDT D-DIMER Routine 12/26/2016 22:32 EDT NT PRO BNP Routine 12/26/2016 22:32 EDT LIPASE Routine 12/26/2016 22:32 EDT CALCIUM Routine 12/26/2016 22:32 EDT HEPATIC FUNCTION PANEL (ALB,ALK PHOS,ALT,AST,DBIL,TOT MALENA,TOT PROT) Routine 12/26/2016 22:32 EDT EKG 12-LEAD STAT 12/26/2016 22:25 EDT documented in this encounter Results * (ABNORMAL) GLUCOSE, GLUCOMETER (01/04/2017 12:07 EDT) Glucose, Fingerstick 183(H) 70 - 100 mg/dl 01/04/2017 12:36 EDT [facility] [place] [id number] 01/04/2017 12:36 EDT [facility] Comment:[facility] BLOOD SPECIMEN / Unknown 01/04/2017 12:07 EDT 01/04/2017 12:36 EDT Hermelinda Vega MD CHEMISTRY & BLOO D GAS ORDERABLES [facility] [address] [place] [address] * (ABNORMAL) GLUCOSE, GLUCOMETER (01/04/2017 8:36 EDT) Glucose, Fingerstick 121(H) 70 - 100 mg/dl 01/04/2017 8:36 EDT [facility] [place] ID [id number] 01/04/2017 8:36 EDT [facility] Comment:[facility] BLOOD SPECIMEN / Unknown 01/04/2017 8:36 EDT 01/04/2017 8:37 EDT Hermelinda Vega MD CHEMISTRY & BLOO D GAS ORDERABLES Performing Organization Address [facility] Co de Phone Number [facility] [address] [place] [address] * PHOSPHORUS (01/04/2017 7:12 EDT) Phosphorus 4.3 2.5 - 4.5 mg/dl 01/04/2017 8:11 EDT [facility] Blood specimen (specimen) BLOOD SPECIMEN / Unknown 01/04/2017 7:12 EDT 01/04/2017 7:24 EDT Festus Arriaga MD CHEMISTRY & BLOOD G ORDERABLES Performing Organization Address [facility] de Phone Number [facility] [address] [place] [address] * MAGNESIUM (01/04/2017 7:12 EDT) Magnesium 2.2 1.7 - 2.8 mg/dl 01/04/2017 8:11 EDT [facility] Blood specimen (specimen) BLOOD SPECIMEN / Unknown 01/04/2017 7:12 EDT 01/04/2017 7:24 EDT Festus Arriaga MD CHEMISTRY & BLOOD G ORDERABLES Performing Organization Address [facility] de Phone Number [facility] [address] [place] [address] * (ABNORMAL) GLUCOSE, GLUCOMETER (01/03/2017 20:29 EDT) Glucose, Fingerstick 231(H) 70 - 100 mg/dl 01/03/2017 20:32 EDT [facility] [place] ID [id number] 01/03/2017 20:32 EDT [facility] Comment:Test Performed by [facility] BLOOD SPECIMEN / Unknown 01/03/2017 20:29 EDT 01/03/2017 20:32 EDT Amarjit Camara MD CHEMISTRY & BLOO D GAS ORDERABLES Performing Organization Address City/[facility]/ZIP Co de Phone Number [facility] [address] [place] [address] * (ABNORMAL) GLUCOSE, GLUCOMETER (01/03/2017 17:17 EDT) Glucose, Fingerstick 169(H) 70 - 100 mg/dl 01/03/2017 17:18 EDT [facility] [place] ID [id number] 01/03/2017 17:18 EDT [facility] Comment:Test Performed by [facility] BLOOD SPECIMEN / Unknown 01/03/2017 17:17 EDT 01/03/2017 17:18 EDT Amarjit Camara MD CHEMISTRY & BLOO D GAS ORDERABLES Performing Organization Address [facility] Co de Phone Number [facility] [address] [place] [address] * (ABNORMAL) GLUCOSE, GLUCOMETER (01/03/2017 12:38 EDT) Glucose, Fingerstick 204(H) 70 - 100 mg/dl 01/03/2017 12:47 EDT [facility] [place] ID [id number] 01/03/2017 12:47 EDT [facility] Comment:Test Performed by [facility] BLOOD SPECIMEN / Unknown 01/03/2017 12:38 EDT 01/03/2017 12:47 EDT Amarjit Camara MD CHEMISTRY & BLOO D GAS ORDERABLES Performing Organization Address City/[facility]/ZIP Co de Phone Number [facility] [address] [place] [address] * (ABNORMAL) GLUCOSE, GLUCOMETER (01/03/2017 8:24 EDT) Glucose, Fingerstick 138(H) 70 - 100 mg/dl 01/03/2017 10:42 EDT [facility] [place] ID [id number] 01/03/2017 10:42 EDT [facility] Comment:Test Performed by [facility] BLOOD SPECIMEN / Unknown 01/03/2017 8:24 EDT 01/03/2017 10:42 EDT Amarjit Camara MD CHEMISTRY & BLOO D GAS ORDERABLES Performing Organization Address [facility]/ZIP Co de Phone Number [facility] [address] [place] [address] * PHOSPHORUS (01/03/2017 5:38 EDT) Phosphorus 4.5 2.5 - 4.5 mg/dl 01/03/2017 7:31 EDT [facility] Blood specimen (specimen) BLOOD SPECIMEN / Unknown 01/03/2017 5:38 EDT 01/03/2017 6:50 EDT Festus Arriaga MD CHEMISTRY & BLOOD G ORDERABLES Performing Organization Address [facility] Co de Phone Number [facility] [address] [place] [address] * MAGNESIUM (01/03/2017 5:38 EDT) Magnesium 2.4 1.7 - 2.8 mg/dl 01/03/2017 7:31 EDT [facility] Blood specimen (specimen) BLOOD SPECIMEN / Unknown 01/03/2017 5:38 EDT 01/03/2017 6:50 EDT Festus Arriaga MD CHEMISTRY & BLOOD G ORDERABLES Performing Organization Address [facility] Co de Phone Number [facility] [address] [place] [address] * (ABNORMAL) GLUCOSE, GLUCOMETER (01/02/2017 21:56 EDT) Glucose, Fingerstick 146(H) 70 - 100 mg/dl 01/02/2017 21:58 EDT [facility] [place] ID [id number] 01/02/2017 21:58 EDT [facility] Comment:Test Performed by [facility] BLOOD SPECIMEN / Unknown 01/02/2017 21:56 EDT 01/02/2017 21:58 EDT Amarjit Camara MD CHEMISTRY & BLOO D GAS ORDERABLES [facility] [address] [place] [address] * (ABNORMAL) GLUCOSE, GLUCOMETER (01/02/2017 18:01 EDT) Glucose, Fingerstick 214(H) 70 - 100 mg/dl 01/02/2017 18:02 EDT [facility] [place] ID [id number] 01/02/2017 18:02 EDT [facility] Comment:[facility] BLOOD SPECIMEN / Unknown 01/02/2017 18:01 EDT 01/02/2017 18:02 EDT Amarjit Camara MD CHEMISTRY & BLOO D GAS ORDERABLES Performing Organization Address [facility]/ZIP Co de Phone Number [facility] [address] [place] [address] * (ABNORMAL) GLUCOSE, GLUCOMETER (01/02/2017 12:47 EDT) Glucose, Fingerstick 234(H) 70 - 100 mg/dl 01/02/2017 12:51 EDT [facility] [place] ID [id number] 01/02/2017 12:51 EDT [facility] Comment:Test Performed by [facility] BLOOD SPECIMEN / Unknown 01/02/2017 12:47 EDT 01/02/2017 12:51 EDT Amarjit Camara MD CHEMISTRY & BLOO D GAS ORDERABLES Performing Organization Address City/[facility]/ZIP Co de Phone Number [facility] [address] [place] [address] * PHOSPHORUS (01/02/2017 10:47 EDT) Phosphorus 2.9 2.5 - 4.5 mg/dl 01/02/2017 11:05 EDT [facility] Blood specimen (specimen) BLOOD SPECIMEN / Unknown 01/02/2017 10:47 EDT 01/02/2017 10:52 EDT Cate Bro MD CHEMISTRY & B LOOD GAS ORDERABLES Performing Organization Address City/[facility] Co de Phone Number [facility] [address] [place] [address] * MAGNESIUM (01/02/2017 10:47 EDT) Magnesium 2.2 1.7 - 2.8 mg/dl 01/02/2017 11:05 EDT [facility] Blood specimen (specimen) BLOOD SPECIMEN / Unknown 01/02/2017 10:47 EDT 01/02/2017 10:52 EDT Cate Bro MD CHEMISTRY & B LOOD GAS ORDERABLES Performing Organization Address [facility] Co de Phone Number [facility] [address] [place] [address] * CREATININE (01/02/2017 10:47 EDT) Creatinine 0.54 0.52 - 1.04 mg/dl 01/02/2017 11:05 EDT [facility] GFR, Calculated 104 >60 ml/min/1.7 3m2 01/02/2017 11:05 EDT [facility] Comment: eGFR calculated using CKD-EPI equation for non Americans. Multiply eGFR by 1.16 for Americans. Blood specimen (specimen) BLOOD SPECIMEN / Unknown 01/02/2017 10:47 EDT 01/02/2017 10:52 EDT Cate Bro MD CHEMISTRY & B LOOD GAS ORDERABLES Performing Organization Address City/[facility]/ZIP Co de Phone Number [facility] [address] [place] [address] * (ABNORMAL) HEMAGRAM (01/02/2017 10:47 EDT) WBC 10.49 4.0 - 12.4 K/cmm 01/02/2017 10:57 EDT [facility] RBC 3.81(L) 3.86 - 5.04 M/cmm 01/02/2017 10:57 EDT [facility] Hemoglobin 11.9 11.6 - 15.2 gm/dl 01/02/2017 10:57 EDT [facility] HCT 35.1 34.9 - 44.4 % 01/02/2017 10:57 EDT [facility] MCV 92 81 - 98 fl 01/02/2017 10:57 EDT [facility] MCH 31.2 26.7 - 33.3 pg 01/02/2017 10:57 EDT [facility] MCHC 33.9 32.1 - 35.9 gm/dl 01/02/2017 10:57 EDT [facility] RDW-CV 14.2 11.7 - 14.6 % 01/02/2017 10:57 EDT [facility] RDW-SD 47.9 37.6 - 50.3 fl 01/02/2017 10:57 EDT [facility] PLT 323 141 - 377 K/cmm 01/02/2017 10:57 T [facility] MPV 9.7 9.5 - 12.7 fl 01/02/2017 10:57 EDT [facility] Blood specimen (specimen) BLOOD SPECIMEN / Unknown 01/02/2017 10:47 EDT 01/02/2017 10:52 EDT Cate Bro MD HEMATOLOGY & PF4 ORDERABLES [facility] [address] [place] [address] * BUN (01/02/2017 10:47 EDT) BUN 18 10 - 26 mg/dl 01/02/2017 11:05 EDT [facility] Blood specimen (specimen) BLOOD SPECIMEN / Unknown 01/02/2017 10:47 EDT 01/02/2017 10:52 EDT Cate Bro MD CHEMISTRY & B LOOD GAS ORDERABLES [facility] [address] [place] [address] * ELECTROLYTES (01/02/2017 10:47 EDT) Sodium 139 136 - 145 mEq/L 01/02/2017 11:05 EDT [facility] Potassium 4.3 3.5 - 5.0 mEq/L 01/02/2017 11:05 EDT [facility] Chloride 101 96 - 110 mEq/L 01/02/2017 11:05 EDT [facility] CO2 29 22 - 32 mEq/L 01/02/2017 11:05 EDT [facility] Blood specimen (specimen) BLOOD SPECIMEN / Unknown 01/02/2017 10:47 EDT 01/02/2017 10:52 EDT Cate Bro MD CHEMISTRY & B LOOD GAS ORDERABLES Performing Organization Address City/[facility]/ZIP Co de Phone Number [facility] [address] [place] [address] * (ABNORMAL) GLUCOSE, GLUCOMETER (01/02/2017 6:04 EDT) Glucose, Fingerstick 138(H) 70 - 100 mg/dl 01/02/2017 6:09 EDT [facility] [place] ID [id number] 01/02/2017 6:09 EDT [facility] Comment:Test Performed by [facility] BLOOD SPECIMEN / Unknown 01/02/2017 6:04 EDT 01/02/2017 6:09 EDT Akin Harrington MD CHEMISTRY & BLOOD GAS ORDERABLES [facility] [address] [place] [address] * (ABNORMAL) GLUCOSE, GLUCOMETER (01/01/2017 21:00 EDT) Glucose, Fingerstick 135(H) 70 - 100 mg/dl 01/01/2017 21:02 EDT [facility] [place] ID [id number] 01/01/2017 21:02 EDT [facility] Comment:Test Performed by [facility] BLOOD SPECIMEN / Unknown 01/01/2017 21:00 EDT 01/01/2017 21:02 EDT Akin Harrington MD CHEMISTRY & BLOOD GAS ORDERABLES [facility] [address] [place] [address] * (ABNORMAL) GLUCOSE, GLUCOMETER (01/01/2017 16:58 EDT) Glucose, Fingerstick 295(H) 70 - 100 mg/dl 01/01/2017 17:02 EDT [facility] [place] ID [id number] 01/01/2017 17:02 EDT [facility] Comment:Test Performed by [facility] BLOOD SPECIMEN / Unknown 01/01/2017 16:58 EDT 01/01/2017 17:02 EDT Akin Harrington MD CHEMISTRY & BLOOD GAS ORDERABLES [facility] [address] [place] [address] * (ABNORMAL) GLUCOSE, GLUCOMETER (01/01/2017 12:35 EDT) Glucose, Fingerstick 223(H) 70 - 100 mg/dl 01/01/2017 12:40 EDT [facility] [place] ID [id number] 01/01/2017 12:40 EDT [facility] Comment:Test Performed by [facility] BLOOD SPECIMEN / Unknown 01/01/2017 12:35 EDT 01/01/2017 12:40 EDT Akin Harrington MD CHEMISTRY & BLOOD GAS ORDERABLES [facility] [address] [place] [address] * (ABNORMAL) GLUCOSE, GLUCOMETER (01/01/2017 8:11 EDT) Glucose, Fingerstick 139(H) 70 - 100 mg/dl 01/01/2017 8:20 EDT [facility] [place] ID [id number] 01/01/2017 8:20 EDT [facility] Comment:Test Performed by [facility] BLOOD SPECIMEN / Unknown 01/01/2017 8:11 EDT 01/01/2017 8:20 EDT Akin Harrington MD CHEMISTRY & BLOOD GAS ORDERABLES [facility] [address] [place] [address] * (ABNORMAL) HEMAGRAM (01/01/2017 3:29 EDT) WBC 13.18(H) 4.0 - 12.4 K/cmm 01/01/2017 3:45 [facility] RBC 4.02 3.86 - 5.04 M/cmm 01/01/2017 3:45 [facility] Hemoglobin 12.7 11.6 - 15.2 gm/dl 01/01/2017 3:45 [facility] HCT 36.6 34.9 - 44.4 % 01/01/2017 3:45 [facility] MCV 91 81 - 98 fl 01/01/2017 3:45 [facility] MCH 31.6 26.7 - 33.3 pg 01/01/2017 3:45 [facility] MCHC 34.7 32.1 - 35.9 gm/dl 01/01/2017 3:45 [facility] RDW-CV 14.1 11.7 - 14.6 % 01/01/2017 3:45 [facility] RDW-SD 47.4 37.6 - 50.3 fl 01/01/2017 3:45 [facility] PLT 305 141 - 377 K/cmm 01/01/2017 3:45 EDT [facility] MPV 9.7 9.5 - 12.7 fl 01/01/2017 3:45 EDT [facility] Blood specimen (specimen) BLOOD SPECIMEN / Unknown 01/01/2017 3:29 EDT 01/01/2017 3:34 EDT Festus Arriaga MD HEMATOLOGY & PF4 OR DERABLES Performing Organization Address [facility] Co de Phone Number [facility] [address] [place] [address] * PHOSPHORUS (01/01/2017 3:29 EDT) Phosphorus 4.0 2.5 - 4.5 mg/dl 01/01/2017 4:07 EDT [facility] Blood specimen (specimen) BLOOD SPECIMEN / Unknown 01/01/2017 3:29 EDT 01/01/2017 3:34 EDT Festus Arriaga MD CHEMISTRY & BLOOD G ORDERABLES Performing Organization Address [facility] Co de Phone Number [facility] [address] [place] [address] * MAGNESIUM (01/01/2017 3:29 EDT) Magnesium 2.2 1.7 - 2.8 mg/dl 01/01/2017 4:07 EDT [facility] Blood specimen (specimen) BLOOD SPECIMEN / Unknown 01/01/2017 3:29 EDT 01/01/2017 3:34 EDT Festus Arriaga MD CHEMISTRY & BLOOD G ORDERABLES Performing Organization Address [facility] Co de Phone Number [facility] [address] [place] [address] * ELECTROLYTES (01/01/2017 3:29 EDT) Sodium 139 136 - 145 mEq/L 01/01/2017 4:07 EDT [facility] Potassium 4.2 3.5 - 5.0 mEq/L 01/01/2017 4:07 EDT [facility] Chloride 99 96 - 110 mEq/L 01/01/2017 4:07 EDT [facility] CO2 30 22 - 32 mEq/L 01/01/2017 4:07 EDT [facility] Blood specimen (specimen) BLOOD SPECIMEN / Unknown 01/01/2017 3:29 EDT 01/01/2017 3:34 EDT Festus Arriaga MD CHEMISTRY & BLOOD G ORDERABLES Performing Organization Address [facility] Co de Phone Number [facility] [address] [place] [address] * CREATININE (01/01/2017 3:29 EDT) Creatinine 0.55 0.52 - 1.04 mg/dl 01/01/2017 4:07 EDT [facility] GFR, Calculated 104 >60 ml/min/1.7 3m2 01/01/2017 4:07 EDT [facility] Comment: eGFR calculated using CKD-EPI equation for non Americans. Multiply eGFR by 1.16 for Americans. Blood specimen (specimen) BLOOD SPECIMEN / Unknown 01/01/2017 3:29 EDT 01/01/2017 3:34 EDT Festus Arriaga MD CHEMISTRY & BLOOD G ORDERABLES Performing Organization Address [facility] Co de Phone Number [facility] [address] [place] [address] * BUN (01/01/2017 3:29 EDT) BUN 26 10 - 26 mg/dl 01/01/2017 4:07 EDT [facility] Blood specimen (specimen) BLOOD SPECIMEN / Unknown 01/01/2017 3:29 EDT 01/01/2017 3:34 EDT Festus Arriaga MD CHEMISTRY & BLOOD G ORDERABLES Performing Organization Address City/[facility]/ZIP Co de Phone Number [facility] [address] [place] [address] * (ABNORMAL) GLUCOSE, GLUCOMETER (12/31/2016 20:13 EDT) Glucose, Fingerstick 130(H) 70 - 100 mg/dl 12/31/2016 20:17 EDT [facility] [place] [id number] 12/31/2016 20:17 EDT [facility] Comment:Test Performed by [facility] BLOOD SPECIMEN / Unknown 12/31/2016 20:13 EDT 12/31/2016 20:17 EDT Akin Harrington MD CHEMISTRY & BLOOD GAS ORDERABLES Performing Organization Address City/[facility]/ZIP Co de Phone Number [facility] [address] [place] [address] * (ABNORMAL) GLUCOSE, GLUCOMETER (12/31/2016 18:13 EDT) Glucose, Fingerstick 181(H) 70 - 100 mg/dl 12/31/2016 18:18 EDT [facility] [place] ID [id number] 12/31/2016 18:18 EDT [facility] Comment:Test Performed by [facility] BLOOD SPECIMEN / Unknown 12/31/2016 18:13 EDT 12/31/2016 18:18 EDT Akin Harrington MD CHEMISTRY & BLOOD GAS ORDERABLES [facility] [address] [place] [address] * (ABNORMAL) GLUCOSE, GLUCOMETER (12/31/2016 13:50 EDT) Glucose, Fingerstick 278(H) 70 - 100 mg/dl 12/31/2016 13:51 EDT [facility] [place] ID [id number] 12/31/2016 13:51 EDT [facility] Comment:Test Performed by [facility] BLOOD SPECIMEN / Unknown 12/31/2016 13:50 EDT 12/31/2016 13:51 EDT Akin Harrington MD CHEMISTRY & BLOOD GAS ORDERABLES Performing Organization Address [facility] Co de Phone Number [facility] [address] [place] [address] * (ABNORMAL) GLUCOSE, GLUCOMETER (12/31/2016 12:25 EDT) Glucose, Fingerstick 370(H) 70 - 100 mg/dl 12/31/2016 12:32 EDT [facility] [place] [id number] 12/31/2016 12:32 EDT [facility] Comment:[facility] BLOOD SPECIMEN / Unknown 12/31/2016 12:25 EDT 12/31/2016 12:32 EDT Akin Harrington MD CHEMISTRY & BLOOD GAS ORDERABLES Performing Organization Address [facility] Co de Phone Number [facility] [address] [place] [address] * UA REFLEX (12/31/2016 9:30 EDT) UA Billing Microscopic not indicated. 12/31/2016 10:07 EDT [facility] URINE / Unknown 12/31/2016 9 :30 EDT 12/31/2016 9:54 EDT Festus Arriaga MD URINALYSIS ORDERABL ES Performing Organization Address [facility] Co de Phone Number [facility] [address] [place] [address] * (ABNORMAL) URINALYSIS WITH MICROSCOPIC IF POSITIVE (12/31/2016 9:30 EDT) Color, UA Yellow 12/31/2016 10:07 EDT [facility] Clarity, UA Clear 12/31/2016 10:07 EDT [facility] Glucose, UA Neg Neg 12/31/2016 10:07 EDT [facility] Bilirubin, UA Neg Neg 12/31/2016 10:07 EDT [facility] Ketones, UA Neg Neg 12/31/2016 10:07 [facility] Specific [place], Urine 1.020 1.001 - 1.035 12/31/2016 10:07 [facility] Blood, UA Trace(A) Neg 12/31/2016 10:07 [facility] pH, UA 5.5 4.6 - 8.0 12/31/2016 10:07 [facility] Protein, UA Neg Neg 12/31/2016 10:07 [facility] Urobilinogen, UA 0.2 0.2 - 1.0 E.U./dl 12/31/2016 10:07 [facility] Nitrite, UA Neg Neg 12/31/2016 10:07 [facility] Leuk Esterase Neg Neg 12/31/2016 10:07 [facility] Urine specimen (specimen) URINE / Unknown 12/31/2016 9:30 EDT 12/31/2016 9:54 EDT Festus Arriaga MD URINALYSIS ORDERABL ES Performing Organization Address [facility]/ZIP Co de Phone Number [facility] [address] [place] [address] * (ABNORMAL) GLUCOSE, GLUCOMETER (12/31/2016 8:06 EDT) Glucose, Fingerstick 139(H) 70 - 100 mg/dl 12/31/2016 8:07 EDT [facility] [place] [id number] 12/31/2016 8:07 EDT [facility] Comment:[facility] BLOOD SPECIMEN / Unknown 12/31/2016 8:06 EDT 12/31/2016 8:07 EDT Akin Harrington MD CHEMISTRY & BLOOD GAS ORDERABLES Performing Organization Address [facility]/ZIP Co de Phone Number [facility] [address] [place] [address] * (ABNORMAL) HEMAGRAM (12/31/2016 5:48 EDT) WBC 10.92 4.0 - 12.4 K/cmm 01/02/2017 6:16 [facility] RBC 3.93 3.86 - 5.04 M/cmm 01/02/2017 6:16 [facility] Hemoglobin 12.3 11.6 - 15.2 gm/dl 01/02/2017 6:16 [facility] HCT 36.0 34.9 - 44.4 % 01/02/2017 6:16 [facility] MCV 92 81 - 98 fl 01/02/2017 6:16 [facility] MCH 31.3 26.7 - 33.3 pg 01/02/2017 6:16 [facility] MCHC 34.2 32.1 - 35.9 gm/dl 01/02/2017 6:16 [facility] RDW-CV 13.9 11.7 - 14.6 % 01/02/2017 6:16 [facility] RDW-SD 47.2 37.6 - 50.3 fl 01/02/2017 6:16 [facility] PLT 321 141 - 377 K/cmm 01/02/2017 6:16 [facility] MPV 9.4(L) 9.5 - 12.7 fl 01/02/2017 6:16 [facility] Blood specimen (specimen) BLOOD SPECIMEN / Unknown 12/31/2016 5:48 EDT 01/02/2017 6:13 EDT Festus Arriaga MD HEMATOLOGY & PF4 OR DERABLES [facility] [address] [place] [address] * PHOSPHORUS (12/31/2016 5:48 EDT) Phosphorus 3.8 2.5 - 4.5 mg/dl 01/02/2017 6:35 [facility] Blood specimen (specimen) BLOOD SPECIMEN / Unknown 12/31/2016 5:48 EDT 01/02/2017 6:13 EDT Festus Arriaga MD CHEMISTRY & BLOOD G ORDERABLES Performing Organization Address [facility] Co de Phone Number [facility] [address] [place] [address] * MAGNESIUM (12/31/2016 5:48 EDT) Magnesium 2.2 1.7 - 2.8 mg/dl 01/02/2017 6:35 EDT [facility] Blood specimen (specimen) BLOOD SPECIMEN / Unknown 12/31/2016 5:48 EDT 01/02/2017 6:13 EDT Festus Arriaga MD CHEMISTRY & BLOOD G ORDERABLES Performing Organization Address [facility] Phone Number [facility] [address] [place] [address] * ELECTROLYTES (12/31/2016 5:48 EDT) Sodium 139 136 - 145 mEq/L 01/02/2017 6:35 EDT [facility] Potassium 4.7 3.5 - 5.0 mEq/L 01/02/2017 6:35 EDT [facility] Chloride 101 96 - 110 mEq/L 01/02/2017 6:35 EDT [facility] CO2 29 22 - 32 mEq/L 01/02/2017 6:35 EDT [facility] Blood specimen (specimen) BLOOD SPECIMEN / Unknown 12/31/2016 5:48 EDT 01/02/2017 6:13 EDT Festus Arriaga MD CHEMISTRY & BLOOD G ORDERABLES Performing Organization Address [facility] Co de Phone Number [facility] [address] [place] [address] * CREATININE (12/31/2016 5:48 EDT) Creatinine 0.52 0.52 - 1.04 mg/dl 01/02/2017 6:35 EDT [facility] GFR, Calculated 106 >60 ml/min/1.7 3m2 01/02/2017 6:35 EDT [facility] Comment: eGFR calculated using CKD-EPI equation for non Americans. Multiply eGFR by 1.16 for Americans. Blood specimen (specimen) BLOOD SPECIMEN / Unknown 12/31/2016 5:48 EDT 01/02/2017 6:13 EDT Festus Arriaga MD CHEMISTRY & BLOOD G ORDERABLES Performing Organization Address [facility] Co de Phone Number [facility] [address] [place] [address] * BUN (12/31/2016 5:48 EDT) BUN 19 10 - 26 mg/dl 01/02/2017 6:35 EDT [facility] Blood specimen (specimen) BLOOD SPECIMEN / Unknown 12/31/2016 5:48 EDT 01/02/2017 6:13 EDT Festus Arriaga MD CHEMISTRY & BLOOD G ORDERABLES Performing Organization Address City/[facility] de Phone Number [facility] [address] [place] [address] * HEMAGRAM (12/31/2016 5:23 EDT) WBC 10.17 4.0 - 12.4 K/cmm 12/31/2016 6:31 EDT [facility] RBC 4.07 3.86 - 5.04 M/cmm 12/31/2016 6:31 T [facility] Hemoglobin 12.8 11.6 - 15.2 gm/dl 12/31/2016 6:31 T [facility] HCT 36.8 34.9 - 44.4 % 12/31/2016 6:31 [facility] MCV 90 81 - 98 fl 12/31/2016 6:31 EDT [facility] MCH 31.4 26.7 - 33.3 pg 12/31/2016 6:31 EDT [facility] MCHC 34.8 32.1 - 35.9 gm/dl 12/31/2016 6:31 EDT [facility] RDW-CV 14.2 11.7 - 14.6 % 12/31/2016 6:31 EDT [facility] RDW-SD 47.7 37.6 - 50.3 fl 12/31/2016 6:31 EDT [facility] PLT 309 141 - 377 K/cmm 12/31/2016 6:31 EDT [facility] MPV 10.0 9.5 - 12.7 fl 12/31/2016 6:31 EDT [facility] Blood specimen (specimen) BLOOD SPECIMEN / Unknown 12/31/2016 5:23 EDT 12/31/2016 6:22 EDT Festus Arriaga MD HEMATOLOGY & PF4 OR DERABLES Performing Organization Address City/[facility] Co de Phone Number [facility] [address] [place] [address] * PHOSPHORUS (12/31/2016 5:23 EDT) Phosphorus 4.3 2.5 - 4.5 mg/dl 12/31/2016 6:39 EDT [facility] Blood specimen (specimen) BLOOD SPECIMEN / Unknown 12/31/2016 5:23 EDT 12/31/2016 6:22 EDT Festus Arriaga MD CHEMISTRY & BLOOD G ORDERABLES Performing Organization Address City/[facility] Co de Phone Number [facility] [address] [place] [address] * MAGNESIUM (12/31/2016 5:23 EDT) Magnesium 2.2 1.7 - 2.8 mg/dl 12/31/2016 6:39 EDT [facility] Blood specimen (specimen) BLOOD SPECIMEN / Unknown 12/31/2016 5:23 EDT 12/31/2016 6:22 EDT Festus Arriaga MD CHEMISTRY & BLOOD G ORDERABLES Performing Organization Address City/[facility] Co de Phone Number [facility] [address] [place] [address] * (ABNORMAL) ELECTROLYTES (12/31/2016 5:23 EDT) Pathologist [facility] Sodium 139 136 - 145 mEq/L 12/31/2016 6:39 EDT [facility] Potassium 3.6 3.5 - 5.0 mEq/L 12/31/2016 6:39 EDT [facility] Chloride 93(L) 96 - 110 mEq/L 12/31/2016 6:39 EDT [facility] CO2 35(H) 22 - 32 mEq/L 12/31/2016 6:39 EDT [facility] Blood specimen (specimen) BLOOD SPECIMEN / Unknown 12/31/2016 5:23 EDT 12/31/2016 6:22 EDT Festus Arriaga MD CHEMISTRY & BLOOD G ORDERABLES Performing Organization Address [facility] Co de Phone Number [facility] [address] [place] [address] * CREATININE (12/31/2016 5:23 EDT) [facility] Creatinine 0.59 0.52 - 1.04 mg/dl 12/31/2016 6:39 EDT [facility] GFR, Calculated 101 >60 ml/min/1.7 3m2 12/31/2016 6:39 EDT [facility] Comment: eGFR calculated using CKD-EPI equation for non Americans. Multiply eGFR by 1.16 for Americans. Blood specimen (specimen) BLOOD SPECIMEN / Unknown 12/31/2016 5:23 EDT 12/31/2016 6:22 EDT Festus Arriaga MD CHEMISTRY & BLOOD G ORDERABLES Performing Organization Address City/[facility] Co de Phone Number [facility] [address] [place] [address] * BUN (12/31/2016 5:23 EDT) BUN 21 10 - 26 mg/dl 12/31/2016 6:39 EDT [facility] Blood specimen (specimen) BLOOD SPECIMEN / Unknown 12/31/2016 5:23 EDT 12/31/2016 6:22 EDT Festus Arriaga MD CHEMISTRY & BLOOD G ORDERABLES Performing Organization Address City/[facility]/ZIP Co de Phone Number [facility] [address] [place] [address] * (ABNORMAL) GLUCOSE, GLUCOMETER (12/30/2016 20:29 EDT) Glucose, Fingerstick 140(H) 70 - 100 mg/dl 12/30/2016 20:29 EDT [facility] [place] [id number] 12/30/2016 20:29 EDT [facility] Comment:Test Performed by [facility] BLOOD SPECIMEN / Unknown 12/30/2016 20:29 EDT 12/30/2016 20:30 EDT Akin Harrington MD CHEMISTRY & BLOOD GAS ORDERABLES Performing Organization Address City/[facility]/ZIP Co de Phone Number [facility] [address] [place] [address] * INPATIENT ADD-ON (12/30/2016 16:55 EDT) Tests to be added HEMOGLOBIN A1C 12/30/2016 16:55 EDT [facility] Number for problems M4 12/30/2016 16:58 EDT [facility] Accession number [id number] 12/30/2016 16:58 EDT [facility] TOPOGRAPHY UNKNOWN / Unknown 12/30/2016 16:55 EDT 12/30/2016 16:57 EDT Emily Santos MD HEMATOLOGY & P F4 ORDERABLES [facility] [address] [place] [address] * (ABNORMAL) GLUCOSE, GLUCOMETER (12/30/2016 16:02 EDT) Glucose, Fingerstick 270(H) 70 - 100 mg/dl 12/30/2016 16:03 EDT [facility] [place] [id number] 12/30/2016 16:03 EDT [facility] Comment:Test Performed by rsing Services BLOOD SPECIMEN / Unknown 12/30/2016 16:02 EDT 12/30/2016 16:03 EDT Akin Harrington MD CHEMISTRY & BLOOD GAS ORDERABLES [facility] [address] [place] [address] * (ABNORMAL) GLUCOSE, GLUCOMETER (12/30/2016 11:38 EDT) Glucose, Fingerstick 204(H) 70 - 100 mg/dl 12/30/2016 11:40 EDT [facility] [place] ID [id number] 12/30/2016 11:40 EDT [facility] Comment:Test Performed by [facility] BLOOD SPECIMEN / Unknown 12/30/2016 11:38 EDT 12/30/2016 11:40 EDT Akin Harrington MD CHEMISTRY & BLOOD GAS ORDERABLES [facility] [address] [place] [address] * ECG REPORT - SCANNED (12/30/2016 8:57 EDT) 12/30/2016 8:57 EDT Scan 2 [employer] Communications Manager PROCEDURE/MINOR GURU GICAL ORDERABLES * (ABNORMAL) GLUCOSE, GLUCOMETER (12/30/2016 8:05 EDT) Glucose, Fingerstick 163(H) 70 - 100 mg/dl 12/30/2016 8:06 EDT [facility] [place] [id number] 12/30/2016 8:06 EDT [facility] Comment:Test Performed by [facility] BLOOD SPECIMEN / Unknown 12/30/2016 8:05 EDT 12/30/2016 8:06 EDT Akin Harrington MD CHEMISTRY & BLOOD GAS ORDERABLES Performing Organization Address [facility] Co de Phone Number [facility] [address] [place] [address] * HEMOGLOBIN A1C (12/30/2016 2:47 EDT) Hemoglobin A1C 6.1 % 12/31/2016 11:01 EDT [facility] Comment: Reference Range: <5.7% Normal 5.7-6.4% Increased risk for diabetes =>6.5% Diagnostic for diabetes (if confirmed) The A1c goal for non adults in general is <7%. The A1c goal for selected patients may be significantly lower than 7% if this can be achieved without significant hypoglycemia or other adverse effects of treatment. Est Avg Glucose 128 mg/dl 7 11:01 EDT [facility] Comment: eAG represents the A1c result expressed as average glucose in mg/dl. BLOOD SPECIMEN / Unknown 12/30/2016 2:47 EDT 12/30/2016 3:08 EDT Cate Bro MD CHEMISTRY & B LOOD GAS ORDERABLES Performing Organization Address City/[facility] Co de Phone Number [facility] [address] [place] [id number] * (ABNORMAL) HEMAGRAM (12/30/2016 2:47 EDT) WBC 10.93 4.0 - 12.4 K/cmm 12/30/2016 3:20 EDT [facility] RBC 3.91 3.86 - 5.04 M/cmm 12/30/2016 3:20 EDT [facility] Hemoglobin 12.4 11.6 - 15.2 gm/dl 12/30/2016 3:20 EDT [facility] HCT 35.8 34.9 - 44.4 % 12/30/2016 3:20 EDT [facility] MCV 92 81 - 98 fl 12/30/2016 3:20 EDT [facility] MCH 31.7 26.7 - 33.3 pg 12/30/2016 3:20 EDT [facility] MCHC 34.6 32.1 - 35.9 gm/dl 12/30/2016 3:20 T [facility] RDW-CV 14.8(H) 11.7 - 14.6 % 12/30/2016 3:20 T [facility] RDW-SD 49.8 37.6 - 50.3 fl 12/30/2016 3:20 T [facility] PLT 294 141 - 377 K/cmm 12/30/2016 3:20 T [facility] MPV 10.1 9.5 - 12.7 fl 12/30/2016 3:20 EDT [facility] Blood specimen (specimen) BLOOD SPECIMEN / Unknown 12/30/2016 2:47 EDT 12/30/2016 3:08 EDT Festus Arriaga MD HEMATOLOGY & PF4 OR DERABLES Performing Organization Address City/[facility] Co de Phone Number [facility] [address] [place] [address] * PHOSPHORUS (12/30/2016 2:47 EDT) Phosphorus 4.0 2.5 - 4.5 mg/dl 12/30/2016 3:36 EDT [facility] Blood specimen (specimen) BLOOD SPECIMEN / Unknown 12/30/2016 2:47 EDT 12/30/2016 3:08 EDT Festus Arriaga MD CHEMISTRY & BLOOD G ORDERABLES Performing Organization Address [facility] Co de Phone Number [facility] [address] [place] [address] * MAGNESIUM (12/30/2016 2:47 EDT) Magnesium 1.9 1.7 - 2.8 mg/dl 12/30/2016 3:36 EDT [facility] Blood specimen (specimen) BLOOD SPECIMEN / Unknown 12/30/2016 2:47 EDT 12/30/2016 3:08 EDT Festus Arriaga MD CHEMISTRY & BLOOD G ORDERABLES Performing Organization Address [facility] de Phone Number [facility] [address] [place] [address] * ELECTROLYTES (12/30/2016 2:47 EDT) Sodium 139 136 - 145 mEq/L 12/30/2016 3:36 EDT [facility] Potassium 4.2 3.5 - 5.0 mEq/L 12/30/2016 3:36 EDT [facility] Chloride 96 96 - 110 mEq/L 12/30/2016 3:36 EDT [facility] CO2 32 22 - 32 mEq/L 12/30/2016 3:36 EDT [facility] Blood specimen (specimen) BLOOD SPECIMEN / Unknown 12/30/2016 2:47 EDT 12/30/2016 3:08 EDT Festus Arriaga MD CHEMISTRY & BLOOD G ORDERABLES Performing Organization Address [facility] de Phone Number [facility] [address] [place] [address] * CREATININE (12/30/2016 2:47 EDT) Creatinine 0.64 0.52 - 1.04 mg/dl 12/30/2016 3:36 EDT [facility] GFR, Calculated 99 >60 ml/min/1.7 3m2 12/30/2016 3:36 EDT [facility] Comment: eGFR calculated using CKD-EPI equation for non Americans. Multiply eGFR by 1.16 for Americans. Blood specimen (specimen) BLOOD SPECIMEN / Unknown 12/30/2016 2:47 EDT 12/30/2016 3:08 EDT Festus Arriaga MD CHEMISTRY & BLOOD G ORDERABLES Performing Organization Address [facility]/ZIP Co de Phone Number [facility] [address] [place] [address] * BUN (12/30/2016 2:47 EDT) BUN 16 10 - 26 mg/dl 12/30/2016 3:36 EDT [facility] Blood specimen (specimen) BLOOD SPECIMEN / Unknown 12/30/2016 2:47 EDT 12/30/2016 3:08 EDT Festus Arriaga MD CHEMISTRY & BLOOD G ORDERABLES Performing Organization Address [facility] de Phone Number [facility] [address] [place] [address] * GLUCOSE, GLUCOMETER (2016 20:23 EDT) Glucose, Fingerstick 96 70 - 100 mg/dl 2016 20:27 EDT [facility] [place] [id number] 2016 20:27 EDT [facility] Comment:Test Performed by Nu [facility]sing Services BLOOD SPECIMEN / Unknown 2016 20:23 EDT 2016 20:27 EDT Akin Harrington MD CHEMISTRY & BLOOD GAS ORDERABLES Performing Organization Address [facility] de Phone Number [facility] [address] [place] [address] * (ABNORMAL) GLUCOSE, GLUCOMETER (2016 18:17 EDT) Glucose, Fingerstick 195(H) 70 - 100 mg/dl 2016 18:21 EDT [facility] [place] [id number] 2016 18:21 EDT [facility] Comment:Test Performed by Nu [facility] Services BLOOD SPECIMEN / Unknown 2016 18:17 EDT 2016 18:21 EDT Akin Harrington MD CHEMISTRY & BLOOD GAS ORDERABLES Performing Organization Address City/[facility]/ZIP Co de Phone Number [facility] [address] [place] [address] * (ABNORMAL) GLUCOSE, GLUCOMETER (2016 12:46 EDT) Glucose, Fingerstick 191(H) 70 - 100 mg/dl 2016 13:22 EDT [facility] [place] [id number] 2016 13:22 EDT [facility] Comment:[facility] BLOOD SPECIMEN / Unknown 2016 12:46 EDT 2016 13:22 EDT Akin Harrington MD CHEMISTRY & BLOOD GAS ORDERABLES Performing Organization Address [facility] Co de Phone Number [facility] [address] [place] [address] * (ABNORMAL) GLUCOSE, GLUCOMETER (2016 7:52 EDT) Glucose, Fingerstick 148(H) 70 - 100 mg/dl 2016 7:57 EDT [facility] [place] [id number] 2016 7:57 EDT [facility] Comment:Test [facility] BLOOD SPECIMEN / Unknown 2016 7:52 EDT 2016 7:57 EDT Akin Harrington MD CHEMISTRY & BLOOD GAS ORDERABLES [facility] [address] [place] [address] * (ABNORMAL) HEMAGRAM (2016 2:03 EDT) WBC 13.96(H) 4.0 - 12.4 K/cmm 2016 2:12 EDT [facility] RBC 3.68(L) 3.86 - 5.04 M/cmm 2016 2:12 EDT [facility] Hemoglobin 11.7 11.6 - 15.2 gm/dl 2016 2:12 EDT [facility] HCT 33.6(L) 34.9 - 44.4 % 2016 2:12 EDT [facility] MCV 91 81 - 98 fl 2016 2:12 EDT [facility] MCH 31.8 26.7 - 33.3 pg 2016 2:12 EDT [facility] MCHC 34.8 32.1 - 35.9 gm/dl 2016 2:12 T [facility] RDW-CV 15.0(H) 11.7 - 14.6 % 2016 2:12 EDT [facility] RDW-SD 50.8(H) 37.6 - 50.3 fl 2016 2:12 T [facility] PLT 272 141 - 377 K/cmm 2016 2:12 T [facility] MPV 9.9 9.5 - 12.7 fl 2016 2:12 T [facility] Blood specimen (specimen) BLOOD SPECIMEN / Unknown 2016 2:03 EDT 2016 2:08 EDT Festus Arriaga MD HEMATOLOGY & PF4 OR DERABLES Performing Organization Address City/[facility] de Phone Number [facility] [address] [place] [address] * PHOSPHORUS (2016 2:03 EDT) Phosphorus 3.7 2.5 - 4.5 mg/dl 2016 2:24 EDT [facility] Blood specimen (specimen) BLOOD SPECIMEN / Unknown 2016 2:03 EDT 2016 2:08 EDT Festus Arriaga MD CHEMISTRY & BLOOD G ORDERABLES [facility] [address] [place] [address] * MAGNESIUM (2016 2:03 EDT) Magnesium 2.1 1.7 - 2.8 mg/dl 2016 2:24 EDT [facility] Blood specimen (specimen) BLOOD SPECIMEN / Unknown 2016 2:03 EDT 2016 2:08 EDT Festus Arrigaa MD CHEMISTRY & BLOOD G ORDERABLES Performing Organization Address [facility] Co de Phone Number [facility] [address] [place] [address] * ELECTROLYTES (2016 2:03 EDT) Sodium 141 136 - 145 mEq/L 2016 2:24 EDT [facility] Potassium 4.2 3.5 - 5.0 mEq/L 2016 2:24 EDT [facility] Chloride 102 96 - 110 mEq/L 2016 2:24 EDT [facility] CO2 29 22 - 32 mEq/L 2016 2:24 EDT [facility] Blood specimen (specimen) BLOOD SPECIMEN / Unknown 2016 2:03 EDT 2016 2:08 EDT Festus Arriaga MD CHEMISTRY & BLOOD G ORDERABLES Performing Organization Address City/[facility]/ZIP Co de Phone Number [facility] [address] [place] [address] * CREATININE (2016 2:03 EDT) Creatinine 0.57 0.52 - 1.04 mg/dl 2016 2:24 EDT [facility] GFR, Calculated 103 >60 ml/min/1.7 3m2 2016 2:24 EDT [facility] Comment: eGFR calculated using CKD-EPI equation for non Americans. Multiply eGFR by 1.16 for Americans. Blood specimen (specimen) BLOOD SPECIMEN / Unknown 2016 2:03 EDT 2016 2:08 EDT Festus Arriaga MD CHEMISTRY & BLOOD G ORDERABLES Performing Organization Address [facility] Co de Phone Number [facility] [address] [place] [address] * BUN (2016 2:03 EDT) BUN 13 10 - 26 mg/dl 2016 2:24 EDT [facility] Blood specimen (specimen) BLOOD SPECIMEN / Unknown 2016 2:03 EDT 2016 2:08 EDT Festus Arriaga MD CHEMISTRY & BLOOD G ORDERABLES Performing Organization Address [facility] Co de Phone Number [facility] [address] [place] [address] * (ABNORMAL) GLUCOSE, GLUCOMETER (12/28/2016 21:28 EDT) Glucose, Fingerstick 168(H) 70 - 100 mg/dl 12/28/2016 21:33 EDT [facility] [place] [id number] 12/28/2016 21:33 EDT [facility] Comment:Test Performed by [facility] BLOOD SPECIMEN / Unknown 12/28/2016 21:28 EDT 12/28/2016 21:33 EDT Akin Harrington MD CHEMISTRY & BLOOD GAS ORDERABLES Performing Organization Address [facility] Co de Phone Number [facility] [address] [place] [address] * (ABNORMAL) GLUCOSE, GLUCOMETER (12/28/2016 17:14 EDT) Glucose, Fingerstick 172(H) 70 - 100 mg/dl 12/28/2016 17:21 EDT [facility] [place] [id number] 12/28/2016 17:21 EDT [facility] Comment:Test Performed by [employer] BLOOD SPECIMEN / Unknown 12/28/2016 17:14 EDT 12/28/2016 17:21 EDT Akin Harrington MD CHEMISTRY & BLOOD GAS ORDERABLES [facility] [address] [place] [address] * ECHOCARDIOGRAM (12/28/2016 14:09 EDT) Anatomical Region Laterality Modality Other 12/28/2016 14:0 9 EDT Narrative 12/28/2016 14:41 EDT *Interpreting Group:* *[facility]* [address] [place] [address] Date of study: 12/28/2016 Transthoracic Echocardiography M-mode, complete 2D, complete spectral Doppler, and color Doppler *STUDY CONCLUSIONS* Summary: 1. Left ventricle: The cavity size was normal. Wall thickness was ?? normal. Systolic function was normal. The estimated ejection fraction ?? was 60-65%. Wall motion was normal; there were no regional wall ?? motion abnormalities. 2. Right ventricle: The cavity size was normal. Wall thickness was ?? normal. Systolic function was normal. 3. Pulmonary arteries: Pulmonary systolic pressure was mildly increased, ?? in the range of 35mm Hg. *PATIENT PRESENTATION* Height: ? 162.6cm ((64in) ) S/D Pressure: 104 / 62 Weight: ? 86.6kg ((190.6lb) ) BSA: ?2.01m^2 Test start time: ??01:39 PM. Test stop time: ??01:56 PM. REFERRING ?Jean Munoz ADMITTING ?Akin Harrington ATTENDING ?Akin Harrington FELLOW ? Bharat Holden MD ORDERING ? Brenda Santos [employer] ??Maria T Nicholas PERFORMING ?? [facility], [facility] REFERRING ?Brenda Santos *PROCEDURE DATA* Procedure information: ??This study was interpreted by [facility]. Pertinent images and digital data are archived for permanent storage and are available for subsequent review. Study status: ??Routine. Transthoracic echocardiography. ??M-mode, complete 2D, complete spectral Doppler, and color Doppler. A Transthoracic Echocardiogram was performed. Scanning was performed from the parasternal, apical, subcostal, and suprasternal notch acoustic windows. Images were obtained using an Epiq 14 cardiac ultrasound machine. Image quality was suboptimal. The study was technically limited due to poor patient compliance. ??Study completion: ??The patient tolerated the procedure well. There were no complications. *INDICATIONS AND HISTORY* Indications: ?? Acute resoiratory failure with hypoxia (J96.01), known, pre-procedure. *CARDIAC ANATOMY* Left ventricle: ??The cavity size was normal. Wall thickness was normal. Systolic function was normal. The estimated ejection fraction was 60-65%. Wall motion was normal; there were no regional wall motion abnormalities. Diastolic parameters were normal. Aortic valve: ?? Structurally normal valve. Trileaflet; normal thickness leaflets. Mobility was not restricted. ??Doppler: ??Transvalvular velocity was within the normal range. There was no stenosis. There was no regurgitation. Aorta: ??Aortic root: The aortic root was normal in size. Mitral valve: ?? Structurally normal valve. ?? Mobility was not restricted. ??Doppler: ??Transvalvular velocity was within the normal range. There was no evidence for stenosis. There was no regurgitation. Peak gradient (D): 3.3mm Hg. Left atrium: ??The atrium was normal in size. Right ventricle: ??The cavity size was normal. Wall thickness was normal. Systolic function was normal. Pulmonic valve: ?The valve appears to be grossly normal. ?Doppler: Transvalvular velocity was within the normal range. There was no evidence for stenosis. There was no regurgitation. Tricuspid valve: ?? Structurally normal valve. ?Doppler: ??Transvalvular velocity was within the normal range. There was no evidence for stenosis. There was mild regurgitation. Pulmonary artery: ?? Not well visualized. Pulmonary systolic pressure was mildly increased, in the range of 35mm Hg. Right atrium: ??The atrium was normal in size. Pericardium: ??There was no pericardial effusion. Systemic veins: Inferior vena cava: The vessel was normal in size. Measurements Left ventricle ? Value ?02/13/2014 Reference LV ID, ED, PLAX ?5.0 ?? cm ? 3.5 - 6.0 LV ID, ES, PLAX ?3.5 ?? cm ? 2.1 - 4.0 LV PW thickness, ED, PLAX ?1.0 ?? cm ? LV end-diastolic volume, 1-p ? 33 ?ml ? A2C LV ejection fraction, 1-p ?63 ?% ? A2C LV end-diastolic volume, 1-p ? 38 ?ml ? 79 ? A4C LV ejection fraction, 1-p ?65 ?% ?58 ? A4C LV IVRT, DP ?60 ?ms ? 81 ? 60 - 100 LV e', lateral ? 0.094 m/sec ??0.081 ? LV E/e', lateral ? 10 ? 11 ? LV e', medial ?0.087 m/sec ?? LV E/e', medial ?10 ? LV e', average ? 0.09 ??m/sec ?? LV E/e', average ? 10 ? Ventricular septum ? Value ?02/13/2014 Reference IVS thickness, ED, PLAX ?0.9 ?? cm ? Aorta ?Value ?02/13/2014 Reference Aortic root ID ? 3.1 ?? cm ? Ascending aorta ID, A-P ?3.1 ?? cm ? Ascending aorta ID, A-P, S ? 3.1 ?? cm ? 2.6 ? Left atrium ?Value ?02/13/2014 Reference LA ID, A-P, ES ? 3.0 ?? cm ? 3.1 ? LA ID/bsa, A-P ? 1.5 ?? cm/m^2 1.5 ?<=2.2 LA area, ES, A4C ? 15.9 ??cm^2 ?? 8.8 - 23.4 LA area, ES, A2C ? 14 ?cm^2 ?? LA volume, ES, 2-p ? 40 ?ml ? LA volume/bsa, ES, 2-p ? 20 ?ml/m^2 LA/aortic root ratio ? 0.97 ? Mitral valve ? Value ?02/13/2014 Reference Mitral E-wave peak velocity ?0.91 ??m/sec ??0.85 ? Mitral A-wave peak velocity ?0.73 ??m/sec ??0.95 ? Mitral deceleration time ? 187 ?? ms ? 162 ?150 - 230 Mitral peak gradient, D ?3.3 ?? mm Hg ??2.9 ? Mitral E/A ratio, peak ? 1.3 ?1 ? Legend: (L) ??and ??(H) ??akin values outside specified reference range. I have personally reviewed the images and have reviewed and edited the reported findings. Electronically signed by Anthony Rand MD 12/28/2016 14:41 Procedure Note Anthony Hawkins MD - 12/28/2016 *Interpreting Group:* *[facility]* [address] [place] [address] Date of study: 12/28/2016 Transthoracic Echocardiography M-mode, [...] FELLOW Bharat Holden MD ORDERING Brenda Santos [employer] Maria T Nicholas PERFORMING [facility], REFERRING Brenda Santos *PROCEDURE DATA* Procedure information: This study was interpreted by [facility]. Pertinent images and [...] signed by Anthony Rand MD 12/28/2016 14:41 Emily Santos MD CARDIAC ECHO O RDERABLES * (ABNORMAL) GLUCOSE, GLUCOMETER (12/28/2016 12:45 EDT) Glucose, Fingerstick 193(H) 70 - 100 mg/dl 12/28/2016 20:50 EDT [facility] [place] [id number] 12/28/2016 20:50 EDT [facility] Comment:Test Performed by [facility] BLOOD SPECIMEN / Unknown 12/28/2016 12:45 EDT 12/28/2016 20:50 EDT Akin Harrington MD CHEMISTRY & BLOOD GAS ORDERABLES Performing Organization Address City/[facility] Co de Phone Number [facility] [address] [place] [address] * (ABNORMAL) GLUCOSE, GLUCOMETER (12/28/2016 7:26 EDT) Glucose, Fingerstick 173(H) 70 - 100 mg/dl 12/28/2016 7:34 EDT [facility] Dobie Man ID [id number] 12/28/2016 7:34 EDT [facility] Comment:Test Performed by [facility] BLOOD SPECIMEN / Unknown 12/28/2016 7:26 EDT 12/28/2016 7:34 EDT Akin Harrington MD CHEMISTRY & BLOOD GAS ORDERABLES Performing Organization Address City/[facility] Co de Phone Number [facility] [address] [place] [address] * (ABNORMAL) HEMAGRAM (12/28/2016 4:00 EDT) WBC 17.86(H) 4.0 - 12.4 K/cmm 12/28/2016 4:21 [facility] RBC 3.93 3.86 - 5.04 M/cmm 12/28/2016 4:21 [facility] Hemoglobin 12.4 11.6 - 15.2 gm/dl 12/28/2016 4:21 [facility] HCT 35.6 34.9 - 44.4 % 12/28/2016 4:21 [facility] MCV 91 81 - 98 fl 12/28/2016 4:21 [facility] MCH 31.6 26.7 - 33.3 pg 12/28/2016 4:21 [facility] MCHC 34.8 32.1 - 35.9 gm/dl 12/28/2016 4:21 [facility] RDW-CV 14.8(H) 11.7 - 14.6 % 12/28/2016 4:21 [facility] RDW-SD 49.5 37.6 - 50.3 fl 12/28/2016 4:21 [facility] PLT 278 141 - 377 K/cmm 12/28/2016 4:21 [facility] MPV 10.0 9.5 - 12.7 fl 12/28/2016 4:21 [facility] Blood specimen (specimen) BLOOD SPECIMEN / Unknown 12/28/2016 4:00 EDT 12/28/2016 4:15 EDT Festus Arriaga MD HEMATOLOGY & PF4 OR DERABLES [facility] [address] [place] [address] * PROCALCITONIN, INFECTIOUS DISEASE USE ONLY (12/28/2016 4:00 EDT) Procalcitonin, Infectious Disease Use Only 0.91 ng/ml 12/28/2016 8:49 [facility] Comment: Procalcitonin levels <0.5 ng/ml represent a low risk of severe sepsis and/or septic shock. Blood specimen (specimen) BLOOD SPECIMEN / Unknown 12/28/2016 4:00 EDT 12/28/2016 4:15 EDT Akin Harrington MD CHEMISTRY & BLOOD GAS ORDERABLES Performing Organization Address [facility] Co de Phone Number [facility] [address] [place] [address] * PHOSPHORUS (12/28/2016 4:00 EDT) Phosphorus 3.5 2.5 - 4.5 mg/dl 12/28/2016 4:42 EDT [facility] Blood specimen (specimen) BLOOD SPECIMEN / Unknown 12/28/2016 4:00 EDT 12/28/2016 4:15 EDT Festus Arriaga MD CHEMISTRY & BLOOD G ORDERABLES Performing Organization Address [facility] de Phone Number [facility] [address] [place] [address] * MAGNESIUM (12/28/2016 4:00 EDT) Magnesium 2.5 1.7 - 2.8 mg/dl 12/28/2016 4:42 EDT [facility] Blood specimen (specimen) BLOOD SPECIMEN / Unknown 12/28/2016 4:00 EDT 12/28/2016 4:15 EDT Festus Arriaga MD CHEMISTRY & BLOOD G ORDERABLES Performing Organization Address [facility] de Phone Number [facility] [address] [place] [address] * ELECTROLYTES (12/28/2016 4:00 EDT) Sodium 143 136 - 145 mEq/L 12/28/2016 4:42 EDT [facility] Potassium 4.4 3.5 - 5.0 mEq/L 12/28/2016 4:42 EDT [facility] Chloride 108 96 - 110 mEq/L 12/28/2016 4:42 EDT [facility] CO2 25 22 - 32 mEq/L 12/28/2016 4:42 EDT [facility] Blood specimen (specimen) BLOOD SPECIMEN / Unknown 12/28/2016 4:00 EDT 12/28/2016 4:15 EDT Festus Arriaga MD CHEMISTRY & BLOOD G ORDERABLES Performing Organization Address City/[facility] Co de Phone Number [facility] [address] [place] [address] * (ABNORMAL) CREATININE (12/28/2016 4:00 EDT) Creatinine 0.51(L) 0.52 - 1.04 mg/dl 12/28/2016 4:42 EDT [facility] GFR, Calculated 107 >60 ml/min/1.7 3m2 12/28/2016 4:42 EDT [facility] Comment: eGFR calculated using CKD-EPI equation for non Americans. Multiply eGFR by 1.16 for Americans. Blood specimen (specimen) BLOOD SPECIMEN / Unknown 12/28/2016 4:00 EDT 12/28/2016 4:15 EDT Festus Arriaga MD CHEMISTRY & BLOOD G ORDERABLES Performing Organization Address [facility] Co de Phone Number [facility] [address] [place] [address] * BUN (12/28/2016 4:00 EDT) BUN 10 10 - 26 mg/dl 12/28/2016 4:42 EDT [facility] Blood specimen (specimen) BLOOD SPECIMEN / Unknown 12/28/2016 4:00 EDT 12/28/2016 4:15 EDT Festus Arriaga MD CHEMISTRY & BLOOD G ORDERABLES Performing Organization Address [facility] Co de Phone Number [facility] [address] [place] [address] * (ABNORMAL) GLUCOSE, GLUCOMETER (12/27/2016 23:40 EDT) Glucose, Fingerstick 215(H) 70 - 100 mg/dl 12/27/2016 23:41 EDT [facility] [place] [id number] 12/27/2016 23:41 EDT [facility] Comment:Test Performed by [facility] BLOOD SPECIMEN / Unknown 12/27/2016 23:40 EDT 12/27/2016 23:41 EDT Akin Harrington MD CHEMISTRY & BLOOD GAS ORDERABLES [facility] [address] [place] [address] * (ABNORMAL) GLUCOSE, GLUCOMETER (12/27/2016 17:25 EDT) Glucose, Fingerstick 179(H) 70 - 100 mg/dl 12/27/2016 21:23 EDT [facility] [place] ID [id number] 12/27/2016 21:23 EDT [facility] Comment:[facility] BLOOD SPECIMEN / Unknown 12/27/2016 17:25 EDT 12/27/2016 21:23 EDT Akin Harrington MD CHEMISTRY & BLOOD GAS ORDERABLES [facility] [address] [place] [address] * (ABNORMAL) BLOOD GAS, G3 ISTAT (12/27/2016 12:07 EDT) pH, i-STAT 7.40 7.35 - 7.45 12/27/2016 12:13 EDT [facility] pCO2, i-STAT 32(L) 35 - 45 mmHg 12/27/2016 12:13 EDT [facility] pO2, i-STAT 57(L) 80 - 105 mmHg 12/27/2016 12:13 EDT [facility] TCO2, i-STAT 21(L) 23 - 27 mEq/L 12/27/2016 12:13 EDT [facility] O2 Saturation 90(L) 95 - 98 % 12/27/2016 12:13 EDT [facility] Base Deficit, i-STAT 4 12/27/2016 12:13 EDT [facility] FIO2 60 12/27/2016 12:13 EDT [facility] Sample Type ARTERIAL 12/27/2016 12:13 EDT [facility] pressroom supervisor ID [phone] 12/27/2016 12:13 EDT [facility] Comment: Test Performed by Respiratory For non-arterial reference ranges, please see ISTAT procedure. BLOOD SPECIMEN / Unknown 12/27/2016 12:07 EDT 12/27/2016 12:13 EDT Akin Harrington MD CHEMISTRY & BLOOD GAS ORDERABLES Performing Organization Address City/[facility]/ZIP Co de Phone Number [facility] [address] [place] [address] * (ABNORMAL) GLUCOSE, GLUCOMETER (12/27/2016 12:00 EDT) Glucose, Fingerstick 233(H) 70 - 100 mg/dl 12/27/2016 12:01 EDT [facility] [place] [id number] 12/27/2016 12:01 EDT [facility] Comment:Test Performed by [facility] BLOOD SPECIMEN / Unknown 12/27/2016 12:00 EDT 12/27/2016 12:01 EDT Akin Harrington MD CHEMISTRY & BLOOD GAS ORDERABLES [facility] [address] [place] [address] * INPATIENT ADD-ON (12/27/2016 11:40 EDT) Tests to be added HIV AB TO SERUM, METAPNEUMO AND PARAINFLUENZA TO RESP VIRUS SWAB 12/27/2016 11:39 EDT [facility] Number for problems M4 12/27/2016 11:43 EDT [facility] Accession number [id number] FOR HIV 12/27/2016 11:43 EDT [facility] Comment:[id number] FOR META AND PARA TOPOGRAPHY UNKNOWN / Unknown 12/27/2016 11:40 EDT 12/27/2016 11:42 EDT Festus Arriaga MD HEMATOLOGY & PF4 OR DERABLES Performing Organization Address City/[facility] Co de Phone Number [facility] [address] [place] [address] * INPATIENT ADD-ON (12/27/2016 11:40 EDT) Tests to be added NT 12/27/2016 11:36 EDT [facility] Comment:PROBNP Number for problems M4 12/27/2016 11:39 EDT [facility] Accession number [id number] 12/27/2016 11:39 EDT [facility] TOPOGRAPHY UNKNOWN / Unknown 12/27/2016 11:40 EDT 12/27/2016 11:41 EDT Festus Arriaga MD HEMATOLOGY & PF4 OR DERABLES Performing Organization Address City/[facility]/ZIP Co de Phone Number [facility] [address] [place] [address] * LEGIONELLA ANTIGEN DETECTION, URINE (12/27/2016 9:11 EDT) Result No Legionella pneumophila serogroup 1 antigen detected. 12/27/2016 10:39 EDT [facility] Specimen of unknown material (specimen) URINE / Unknown 12/27/2016 9:11 EDT 12/27/2016 10:07 EDT Cate Bro MD MICROBIOLOGY - GENERAL ORDERABLES Performing Organization Address City/[facility]/ZIP Co de Phone Number [facility] [address] [place] [address] * STREPTOCOCCUS PNEUMONIAE ANTIGEN, URINE (12/27/2016 9:11 EDT) Result No Strep pneumoniae antigen detected. 12/27/2016 10:38 EDT [facility] Specimen of unknown material (specimen) URINE / Unknown 12/27/2016 9:11 EDT 12/27/2016 10:07 EDT Cate Bro MD MICROBIOLOGY - GENERAL ORDERABLES [facility] [address] [place] [address] * HIV 1/2 ANTIBODY (12/27/2016 5:58 EDT) Pathologist [facility] HIV 1/2 Antibody Negative 12/29/19 12:18 EDT [facility] Comment: If acute HIV-1 infection is suspected in a high risk patient, submit plasma specimen for HIV-1 RNA quantification test. Reference Range: ??Negative Assayed utilizing [employer] chemiluminescent technology. BLOOD SPECIMEN / Unknown 12/27/2016 5:58 EDT 12/27/2016 6:05 EDT Cate Bro MD IMMUNOLOGY AN D SEROLOGY ORDERABLES Performing Organization Address City/[facility] Co de Phone Number [facility] [address] [place] [id number] * (ABNORMAL) NT PRO BNP (12/27/2016 5:58 EDT) [facility] NT Pro BNP 421(H) <300 pg/ml 12/27/2016 12:18 EDT [facility] Comment: Reference Range: NT-proBNP values less than 300 pg/ml have a 99% negative predictive value for excluding acute congestive heart failure. A diagnostic NT-proBNP cutoff of 900 pg/ml has been suggested in adults over 50 years of age in the absence of renal failure. A cutoff of 1200 pg/ml for patients with an eGFR <60 yields a diagnostic sensitivity and specificity of 89% and 72% for acute congestive failure. BLOOD SPECIMEN / Unknown 12/27/2016 5:58 EDT 12/27/2016 6:05 EDT Cate Bro MD CHEMISTRY & B LOOD GAS ORDERABLES [facility] [address] [place] [address] * (ABNORMAL) HEMAGRAM (12/27/2016 5:58 EDT) WBC 14.18(H) 4.0 - 12.4 K/cmm 12/27/2016 6:08 [facility] RBC 3.75(L) 3.86 - 5.04 M/cmm 12/27/2016 6:08 [facility] Hemoglobin 11.8 11.6 - 15.2 gm/dl 12/27/2016 6:08 [facility] HCT 33.7(L) 34.9 - 44.4 % 12/27/2016 6:08 [facility] MCV 90 81 - 98 fl 12/27/2016 6:08 [facility] MCH 31.5 26.7 - 33.3 pg 12/27/2016 6:08 [facility] MCHC 35.0 32.1 - 35.9 gm/dl 12/27/2016 6:08 [facility] RDW-CV 14.6 11.7 - 14.6 % 12/27/2016 6:08 [facility] RDW-SD 47.8 37.6 - 50.3 fl 12/27/2016 6:08 [facility] PLT 262 141 - 377 K/cmm 12/27/2016 6:08 [facility] MPV 10.1 9.5 - 12.7 fl 12/27/2016 6:08 [facility] Blood specimen (specimen) BLOOD SPECIMEN / Unknown 12/27/2016 5:58 EDT 12/27/2016 6:05 EDT Festus Arriaga MD HEMATOLOGY & PF4 OR DERABLES [facility] [address] [place] [address] * PROCALCITONIN, INFECTIOUS DISEASE USE ONLY (12/27/2016 5:58 EDT) Procalcitonin, Infectious Disease Use Only 1.72 ng/ml 12/27/2016 8:40 EDT [facility] Comment: Procalcitonin levels <0.5 ng/ml represent a low risk of severe sepsis and/or septic shock. Blood specimen (specimen) BLOOD SPECIMEN / Unknown 12/27/2016 5:58 EDT 12/27/2016 6:05 EDT Akin Harrington MD CHEMISTRY & BLOOD GAS ORDERABLES Performing Organization Address [facility] Co de Phone Number [facility] [address] [place] [address] * (ABNORMAL) PHOSPHORUS (12/27/2016 5:58 EDT) Phosphorus 2.0(L) 2.5 - 4.5 mg/dl 12/27/2016 6:26 EDT [facility] Blood specimen (specimen) BLOOD SPECIMEN / Unknown 12/27/2016 5:58 EDT 12/27/2016 6:05 EDT Festus Arriaga MD CHEMISTRY & BLOOD G ORDERABLES Performing Organization Address [facility] de Phone Number [facility] [address] [place] [address] * (ABNORMAL) MAGNESIUM (12/27/2016 5:58 EDT) Magnesium 3.2(H) 1.7 - 2.8 mg/dl 12/27/2016 6:26 EDT [facility] Blood specimen (specimen) BLOOD SPECIMEN / Unknown 12/27/2016 5:58 EDT 12/27/2016 6:05 EDT Festus Arriaag MD CHEMISTRY & BLOOD G ORDERABLES Performing Organization Address [facility] Co de Phone Number [facility] [address] [place] [address] * (ABNORMAL) GLUCOSE, SERUM (12/27/2016 5:58 EDT) Glucose, Serum 203(H) 70 - 100 mg/dl 12/27/2016 6:26 EDT [facility] Blood specimen (specimen) BLOOD SPECIMEN / Unknown 12/27/2016 5:58 EDT 12/27/2016 6:05 EDT Cate Bro MD CHEMISTRY & B LOOD GAS ORDERABLES Performing Organization Address [facility] de Phone Number [facility] [address] [place] [address] * (ABNORMAL) ELECTROLYTES (12/27/2016 5:58 EDT) Sodium 141 136 - 145 mEq/L 12/27/2016 6:26 EDT [facility] Potassium 3.2(L) 3.5 - 5.0 mEq/L 12/27/2016 6:26 T [facility] Chloride 108 96 - 110 mEq/L 12/27/2016 6:26 T [facility] CO2 24 22 - 32 mEq/L 12/27/2016 6:26 EDT [facility] Blood specimen (specimen) BLOOD SPECIMEN / Unknown 12/27/2016 5:58 EDT 12/27/2016 6:05 EDT Festus Arriaga MD CHEMISTRY & BLOOD G ORDERABLES Performing Organization Address [facility] de Phone Number [facility] [address] [place] [address] * CREATININE (12/27/2016 5:58 EDT) Creatinine 0.55 0.52 - 1.04 mg/dl 12/27/2016 6:26 T [facility] GFR, Calculated 104 >60 ml/min/1.7 3m2 12/27/2016 6:26 T [facility] Comment: eGFR calculated using CKD-EPI equation for non Americans. Multiply eGFR by 1.16 for Americans. Blood specimen (specimen) BLOOD SPECIMEN / Unknown 12/27/2016 5:58 EDT 12/27/2016 6:05 EDT Festus Arriaga MD CHEMISTRY & BLOOD G ORDERABLES Performing Organization Address City/[facility]/ZIP Co de Phone Number [facility] [address] [place] [address] * (ABNORMAL) BUN (12/27/2016 5:58 EDT) BUN 9(L) 10 - 26 mg/dl 12/27/2016 6:26 EDT [facility] Blood specimen (specimen) BLOOD SPECIMEN / Unknown 12/27/2016 5:58 EDT 12/27/2016 6:05 EDT Festus Arriaga MD CHEMISTRY & BLOOD G ORDERABLES Performing Organization Address City/[facility] Co de Phone Number [facility] [address] [place] [address] * INPATIENT ADD-ON (12/27/2016 2:59 EDT) Tests to be added NT 12/27/2016 2:57 EDT [facility] Comment:PROBNP Number for problems Not Given 12/27/2016 3:00 EDT [facility] Accession number [id number] 12/27/2016 3:00 EDT [facility] TOPOGRAPHY UNKNOWN / Unknown 12/27/2016 2:59 EDT 12/27/2016 2:59 EDT Akin Harrington MD HEMATOLOGY & PF4 ORDERABLES Performing Organization Address City/[facility] Co de Phone Number [facility] [address] [place] [address] * MRSA PCR (12/27/2016 2:35 EDT) Result No Staphylococcus aureus detected by PCR. 12/31/2016 14:38 EDT [facility] Specimen of unknown material (specimen) NASAL ROUTE / Unknown 12/27/2016 2:35 EDT 12/31/2016 10:31 EDT Cate Bro MD MICROBIOLOGY - GENERAL ORDERABLES Performing Organization Address City/[facility] Co de Phone Number [facility] [address] [place] [address] * BACTERIAL CULTURE, BLOOD (12/27/2016 1:35 EDT) Result No growth 01/01/2017 6:50 EDT [facility] Blood specimen (specimen) BLOOD SPECIMEN / Unknown 12/27/2016 1:35 EDT 12/27/2016 1:48 EDT Comment:Left~Hand~Total volu me of blood collected:~20 ml Siena Sesay MD MICROBIOLOGY - GEN ERAL ORDERABLES Performing Organization Address City/[facility] Co de Phone Number [facility] [address] [place] [address] * BACTERIAL CULTURE, BLOOD (12/27/2016 1:35 EDT) Result No growth 01/01/2017 6:50 EDT [facility] Blood specimen (specimen) BLOOD SPECIMEN / Unknown 12/27/2016 1:35 EDT 12/27/2016 1:47 EDT Comment:Right~Antecubital~To rohit volume of blood collected:~20 ml Siena Sesay MD MICROBIOLOGY - GEN ERAL ORDERABLES Performing Organization Address [facility] Co de Phone Number [facility] [address] [place] [address] * RESPIRATORY VIRUS DETECTION (12/27/2016 0:35 EDT) Result No Parainfluenza Virus Type 1,2 or 3 detected by PCR. This assay may have decrease sensitivity for Parainfluenza Virus Type 3. 01/02/2017 11:46 EDT [facility] Result No Metapneumovirus detected by PCR. Assayed by [facility], [place], [place] 01/02/2017 11:46 EDT [facility] BOTH ANTERIOR NARES / Unknown 12/27/2016 0:35 EDT 12/27/2016 12:03 EDT Akin Harrington MD MICROBIOLO GY - GENERAL ORDERABLES Performing Organization Address City/[facility]/ZIP Co de Phone Number [facility] [address] [place] [address] * RESPIRATORY VIRUS DETECTION (12/27/2016 0:35 EDT) Result No RSV, Influenza A, or Influenza B detected by PCR 12/27/2016 9:15 EDT [facility] BOTH ANTERIOR NARES / Unknown 12/27/2016 0:35 EDT 12/27/2016 7:56 EDT Cate Bro MD MICROBIOLOGY - GENERAL ORDERABLES Performing Organization Address City/[facility]/ZIP Co de Phone Number [facility] [address] [place] [address] * (ABNORMAL) BLOOD GAS, G3 ISTAT (12/26/2016 23:42 EDT) pH, i-STAT 7.39 7.35 - 7.45 12/26/2016 23:46 [facility] pCO2, i-STAT 34(L) 35 - 45 mmHg 12/26/2016 23:46 [facility] pO2, i-STAT 49(L) 80 - 105 mmHg 12/26/2016 23:46 [facility] TCO2, i-STAT 21(L) 23 - 27 mEq/L 12/26/2016 23:46 [facility] O2 Saturation 84(L) 95 - 98 % 12/26/2016 23:46 [facility] Base Deficit, i-STAT 4 12/26/2016 23:46 [facility] FIO2 44 12/26/2016 23:46 [facility] Sample Type ARTERIAL 12/26/2016 23:46 [facility] pressroom supervisor ID [id number] 12/26/2016 23:46 [facility] Comment: Test Performed by Respiratory For non-arterial reference ranges, please see ISTAT procedure. BLOOD SPECIMEN / Unknown 12/26/2016 23:42 EDT 12/26/2016 23:46 EDT Provider Unknown CHEMISTRY & BLOOD GA S ORDERABLES [facility] [address] [place] [address] * CHEST PA AND LATERAL (12/26/2016 23:26 EDT) Anatomical Region Laterality Modality Other 12/26/2016 23:2 6 EDT 12/27/2016 11:35 EDT Narrative 12/27/2016 11:35 EDT CHEST PA AND LATERAL ??12/26/2016 11:26 PM Clinical History/Comments: SHORTNESS OF BREATH COMPARISON: Radiographs 02/16/2014. Chest CT 02/12/2014. TECHNIQUE: Frontal and lateral views of the chest were performed. FINDINGS: Soft tissues: ??Surgical clips project over the mid upper abdomen. Bones: Cervical spinal fusion hardware is noted. The bones are otherwise without significant finding. Cardiac and mediastinal contours: Normal. Lungs: There are extensive coarse reticular opacities predominantly involving the mid and lower lungs with superimposed airspace disease. The apices are relatively spared. The overall appearance has worsened when compared to prior imaging. ?? Pleura/diaphragms: No evidence of pneumothorax or pleural effusion. IMPRESSION: Worsening coarse reticular opacities within the mid to lower lungs with superimposed airspace disease concerning for the development of pneumonia or atypical pulmonary edema in patient with possible underlying chronic interstitial disease. Some of the airspace disease has a rounded appearance and underlying pulmonary nodules cannot definitely be excluded. CT scan should be considered for further evaluation. These findings were discussed with one of the ICU fellows by Dr. Strange at on December 27 at 11:30 AM. I have personally reviewed the images and the above interpretation and agree with the findings. Procedure Note Deanna Strange MD - 12/27/2016 CHEST PA AND LATERAL 12/26/2016 11:26 PM Clinical History/Comments: SHORTNESS OF BREATH COMPARISON: Radiographs 02/16/2014. Chest CT 02/12/2014. TECHNIQUE: Frontal and lateral views of the chest were performed. FINDINGS: Soft tissues: Surgical clips project over the mid upper abdomen. Bones: Cervical spinal fusion hardware is noted. The bones are otherwise without significant finding. Cardiac and mediastinal contours: Normal. Lungs: There are extensive coarse reticular opacities predominantly involving the mid and lower lungs with superimposed airspace disease. The apices are relatively spared. The overall appearance has worsened when compared to prior imaging. Pleura/diaphragms: No evidence of pneumothorax or pleural effusion. IMPRESSION: Worsening coarse reticular opacities within the mid to lower lungs with superimposed airspace disease concerning for the development of pneumonia or atypical pulmonary edema in patient with possible underlying chronic interstitial disease. Some of the airspace disease has a rounded appearance and underlying pulmonary nodules cannot definitely be excluded. CT scan should be considered for further evaluation. These findings were discussed with one of the ICU fellows by Dr. Strange at on December 27 at 11:30 AM. I have personally reviewed the images and the above interpretation and agree with the findings. Siena Sesay MD IMG DIAGNOSTIC ISABEL GING ORDERABLES * ED/URGENT CARE ADD-ON (12/26/2016 23:05 EDT) Tests to be added CMP AND DDIMER 12/26/2016 23:02 EDT [facility] Comment:LIPASE,TROPONIN 1,HE MAGRAM Number for problems [id number] (ED) 12/26/2016 23:02 EDT [facility] TOPOGRAPHY UNKNOWN / Unknown 12/26/2016 23:05 EDT 12/26/2016 23:10 EDT Siena Sesay MD HEMATOLOGY & PF4 O RDERABLES [facility] [address] [place] [address] * NT PRO BNP (12/26/2016 22:32 EDT) NT Pro BNP 242 <300 pg/ml 12/27/2016 3:24 EDT [facility] Comment: Reference Range: NT-proBNP values less than 300 pg/ml have a 99% negative predictive value for excluding acute congestive heart failure. A diagnostic NT-proBNP cutoff of 900 pg/ml has been suggested in adults over 50 years of age in the absence of renal failure. A cutoff of 1200 pg/ml for patients with an eGFR <60 yields a diagnostic sensitivity and specificity of 89% and 72% for acute congestive failure. BLOOD SPECIMEN / Unknown 12/26/2016 22:32 EDT 12/26/2016 22:35 EDT Siena Sesay MD CHEMISTRY & BLOOD GAS ORDERABLES Performing Organization Address [facility] Co de Phone Number [facility] [address] [place] [address] * (ABNORMAL) HEPATIC FUNCTION PANEL (ALB,ALK PHOS,ALT,AST,DBIL,TOT MALENA,TOT PROT) (12/26/2016 22:32 EDT) Albumin 3.5 3.4 - 4.9 g/dl 12/26/2016 23:40 [facility] Total Protein 5.8(L) 6.3 - 8.2 g/dl 12/26/2016 23:40 [facility] Total Alkaline Phosphatase 100 38 - 126 U/L 12/26/2016 23:40 [facility] ALT 23 <53 U/L 12/26/2016 23:40 [facility] AST 27 15 - 46 U/L 12/26/2016 23:40 [facility] Unconjugated Bilirubin 0.0 0.0 - 1.1 mg/dl 12/26/2016 23:40 [facility] Conjugated Bilirubin 0.0 0.0 - 0.3 mg/dl 12/26/2016 23:40 [facility] Bilirubin, Total <0.5 <1.4 mg/dl 12/27/19 17 23:40 [facility] BLOOD SPECIMEN / Unknown 12/26/2016 22:32 EDT 12/26/2016 22:35 EDT Siena Sesay MD CHEMISTRY & BLOOD GAS ORDERABLES Performing Organization Address [facility]/ZIP Co de Phone Number [facility] [address] [place] [address] * LIPASE (12/26/2016 22:32 EDT) Lipase 22 <251 U/L 12/26/2016 23:40 EDT [facility] BLOOD SPECIMEN / Unknown 12/26/2016 22:32 EDT 12/26/2016 22:35 EDT Siena Sesay MD CHEMISTRY & BLOOD GAS ORDERABLES Performing Organization Address [facility] de Phone Number [facility] [address] [place] [address] * D-DIMER (12/26/2016 22:32 EDT) D-Dimer <200 <230 ng/mL 12/26/2016 23:48 EDT [facility] Comment: CUTOFF VALUE FOR THE EXCLUSION OF DVT and PE: 230 ng/mL D-dimer units Any use of the age-adjusted cutoff value is a post-analytic modification of this FDA-approved test and is considered off-label use of the test result. [facility] laboratory does not have literature to support the validity of an age-adjusted cutoff for our specific assay. BLOOD SPECIMEN / Unknown 12/26/2016 22:32 EDT 12/26/2016 22:35 EDT Siena Sesay MD HEMATOLOGY & PF4 O RDERABLES Performing Organization Address [facility] Phone Number [facility] [address] [place] [address] * CALCIUM (12/26/2016 22:32 EDT) Calcium 8.5 8.5 - 10.5 mg/dl 12/26/2016 23:40 EDT [facility] Calculated Calcium 8.9 8.5 - 10.5 mg/dl 12/26/2016 23:40 EDT [facility] BLOOD SPECIMEN / Unknown 12/26/2016 22:32 EDT 12/26/2016 22:35 EDT Siena Sesay MD CHEMISTRY & BLOOD GAS ORDERABLES Performing Organization Address [facility]/ZIP Co de Phone Number [facility] [address] [place] [address] * (ABNORMAL) PROFILE ED CARDIAC PACK (12/26/2016 22:32 EDT) Sodium 142 136 - 145 mEq/L 12/26/2016 22:47 [facility] Potassium 3.3(L) 3.5 - 5.0 mEq/L 12/26/2016 22:47 [facility] Chloride 109 96 - 110 mEq/L 12/26/2016 22:47 [facility] CO2 20(L) 22 - 32 mEq/L 12/26/2016 22:47 [facility] BUN 11 10 - 26 mg/dl 12/26/2016 22:47 [facility] Creatinine 0.67 0.52 - 1.04 mg/dl 12/26/2016 22:47 [facility] GFR, Calculated 98 >60 ml/min/1 .73m2 12/26/2016 22:47 [facility] Comment: eGFR calculated using CKD-EPI equation for non Americans. Multiply eGFR by 1.16 for Americans. Magnesium 1.6(L) 1.7 - 2.8 mg/dl 12/26/2016 22:47 [facility] WBC 12.85(H) 4.0 - 12.4 K/cmm 12/26/2016 22:39 [facility] RBC 3.74(L) 3.86 - 5.04 M/cmm 12/26/2016 22:39 [facility] Hemoglobin 11.8 11.6 - 15.2 gm/dl 12/26/2016 22:39 [facility] HCT 34.1(L) 34.9 - 44.4 % 12/26/2016 22:39 [facility] MCV 91 81 - 98 fl 12/26/2016 22:39 [facility] MCH 31.6 26.7 - 33.3 pg 12/26/2016 22:39 [facility] MCHC 34.6 32.1 - 35.9 gm/dl 12/26/2016 22:39 [facility] RDW-CV 14.7(H) 11.7 - 14.6 % 12/26/2016 22:39 [facility] RDW-SD 49.2 37.6 - 50.3 fl 12/26/2016 22:39 [facility] PLT 259 141 - 377 K/cmm 12/26/2016 22:39 [facility] MPV 9.8 9.5 - 12.7 fl 12/26/2016 22:39 [facility] Neutrophils 75.0 % 12/26/2016 23:10 [facility] % Bands 3.0 % 12/26/2016 23:10 [facility] Lymphocytes 18.0 % 12/26/2016 23:10 [facility] Monocytes 3.0 % 12/26/2016 23:10 [facility] Basophils 1.0 % 12/26/2016 23:10 [facility] ABS Neutrophils 9.63(H) 2.20 - 8.85 K/cmm 12/26/2016 23:10 [facility] ABS Bands 0.39 K/cmm 12/26/2016 23:10 [facility] ABS Lymphs 2.31 1.09 - 3.30 K/cmm 12/26/2016 23:10 [facility] ABS Monocytes 0.39 0.1 - 0.8 K/cmm 12/26/2016 23:10 [facility] ABS Basophils 0.13(H) 0.01 - 0.11 K/cmm 12/26/2016 23:10 [facility] Vacuolization Present 12/26/2016 23:10 [facility] Type of Diff: Manual 12/26/2016 23:10 [facility] Troponin I (ng/mL) <0.034 <0.034 ng/ml 12/26/2016 22:59 [facility] Glucose, Screening 152(H) 70 - 100 mg/dl 12/26/2016 22:47 [facility] Hold Blue Top Sample for coagulation will be discarded after 4 hours 12/26/2016 22:43 EDT [facility] Blood specimen (specimen) BLOOD SPECIMEN / Unknown 12/26/2016 22:32 EDT 12/26/2016 22:35 EDT Siena Sesay MD PACKAGES & DNA PRO BE ORDERABLES [facility] [address] [place] [address] * EKG 12-LEAD (12/26/2016 22:25 EDT) 12/26/2016 22:2 5 EDT Narrative [facility] E[facility] - 2016 7:58 EDT ?[facility] ? Test Date: ?2016-12-26 Pat Name: ? MARIA DEL ROSARIO MEADOWS ?Department: ?? ED ? Room: ? AC12 Gender: ? 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 Requested By: MECHELLE Gamez Order Number: [id number] ? Merna JOSEPH: ?? KATHY NIETO MD ? Measurements Intervals ?Waldo ? Rate: ? 107 ?P: ?66 LA: ? 129 ?QRS: ?37 QRSD: ? 90 ? T: ?8 QT: ? 334 ? QTc: ?447 ? Interpretive Statements POOR DATA QUALITY SINUS TACHYCARDIA NONSPECIFIC ST & T-WAVE ABNORMALITY Compared to ECG 02/12/2014 13:02:28 Sinus tachycardia now present I reviewed the tracing and have either agreed or edited the findings in this report. Electronically Signed On 12-29-16 07:58:39 EDT by KATHY NIETO MD. 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 Electronically Signed On 12-29-16 07:58:39 EDT by KATHY CHADWICK. Jean Roe MD CARDIAC ECG ORDERABLES [facility] EKG documented in this encounter Visit Diagnoses Diagnosis Acute hypoxemic respiratory failure (HCC-CMS)- Primary Acute hypoxemic respiratory failure (HCC-CMS) Chronic obstructive pulmonary disease, unspecified COPD type (HCC-CMS) Pneumonia of both lungs due to infectious organism, unspecified part of lung Chronic low back pain, unspecified back pain laterality, with sciatica presence unspecified COPD exacerbation (HCC-CMS) Obstructive chronic bronchitis with exacerbation Anxiety Anxiety state, unspecified Chronic pain syndrome Steroid-induced hyperglycemia Other abnormal glucose Impaired glucose tolerance Impaired glucose tolerance test COPD exacerbation (HCC-CMS) Obstructive chronic bronchitis with exacerbation Steroid-induced hyperglycemia Other abnormal glucose Screening for osteoporosis- Primary Special screening for [...] (TYLENOL) tablet 1,000 mg 1,000 mg, oral, EVERY 6 HOURS PRN, Starting on Wed12/30/16 at 0845, Until Wed01/04/17 at 1926, Pain, Routine Given 01/04/2017 11:10 EDT 1,000 mg Given 01/02/2017 21:22 EDT 1,000 mg Given 01/02/2017 0:12 EDT 1,000 mg acetaminophen (TYLENOL) tablet 650 mg 650 mg, oral, EVERY 4 HOURS PRN, Starting on Wed12/27/16 at 0621, Until Wed12/30/16 at 0843, Pain, Routine Given 12/30/2016 8:39 EDT 650 mg Given 2016 14:10 EDT 650 mg Given 12/28/2016 17:32 EDT 650 mg albuterol (ACCUNEB) nebulizer solution 2.5 mg 2.5 mg, nebulization, EVERY 4 HOURS, First dose (after last modification) on Wed12/28/16 at 0800, Until Discontinued, Routine Given 12/28/2016 20:01 EDT 2.5 mg Given 12/28/2016 15:36 EDT 2.5 mg Given 12/28/2016 12:05 EDT 2.5 mg azithromycin (ZITHROMAX) 250 mg in dextrose 5% (D5W) 250 mL IVPB 250 mg, intravenous, Administer over 60 Minutes, EVERY 24 HOURS, 4 doses, First dose on Wed12/27/16 at 2100, Last dose on Wed12/30/16 at 2100, Routine Given 2016 21:13 EDT 250 mg Given 12/28/2016 21:14 EDT 250 mg Given 12/27/2016 21:30 EDT 250 mg azithromycin (ZITHROMAX) 500 mg in dextrose 5% (D5W) 250 mL IVPB 500 mg, intravenous, Administer over 60 Minutes, NOW X1, 1 dose, On Wed12/27/16 at 0045, STAT New Bag 12/27/2016 1:48 EDT 500 mg azithromycin (ZITHROMAX) tablet 250 mg 250 mg, oral, DAILY, 1 dose, First dose on Wed12/30/16 at 2100, Routine Given 12/30/2016 20:03 EDT 250 mg fblwcmdzik-rkvjvtoahrsty-gswdfxsy (FIORICET, ESGIC) 50-325-40 mg per tablet 1 Tab 1 Tablet, oral, EVERY 4 HOURS PRN, Starting on Wed12/30/16 at 1006, Until Wed01/04/17 at 1926, Headaches, Routine Given 01/03/2017 17:09 EDT 1 Tablet Given 01/02/2017 21:22 EDT 1 Tablet Given 01/02/2017 13:05 EDT 1 Tablet calcium carbonate (TUMS) 200 mg calcium (500 mg) per chewable tablet tablet,chewable 1 Tab 1 Tablet, oral, 4 TIMES DAILY PRN, Starting on Wed12/28/16 at 2134, Until Wed01/04/17 at 1926, Heartburn, Routine Given 12/31/2016 21:25 EDT 1 Tablet Given 12/28/2016 22:23 EDT 1 Tablet cefpodoxime (VANTIN) tablet 200 mg 200 mg, oral, EVERY 12 HOURS, 6 doses, First dose on Wed12/30/16 at 2100, Last dose on Wed01/02/17 at 0900, Routine Given 12/31/2016 8:21 EDT 200 mg Given 12/30/2016 20:04 EDT 200 mg cefTRIAXone (ROCEPHIN) 1,000 mg in sodium chloride (NS MBP) 0.9 % 50 mL IVPB 1,000 mg, intravenous, Administer over 30 Minutes, NOW X1, 1 dose, On Wed12/27/16 at 0045, STAT New Bag 12/27/2016 1:47 EDT 1,000 mg cefTRIAXone (ROCEPHIN) 1,000 mg in sodium chloride (NS MBP) 0.9 % 50 mL IVPB 1,000 mg, intravenous, Administer over 30 Minutes, EVERY 24 HOURS, 7 doses, First dose on Wed12/27/16 at 2100, Last dose on Wed01/02/17 at 2100, Routine Given 2016 20:17 EDT 1,000 mg Given 12/28/2016 21:14 EDT 1,000 mg Given 12/27/2016 21:30 EDT 1,000 mg cefTRIAXone (ROCEPHIN) 1,000 mg in sodium chloride (NS MBP) 0.9 % 50 mL IVPB 1,000 mg, intravenous, Administer over 30 Minutes, EVERY 24 HOURS, 2 doses, First dose on [place] 12/31/16 at 2100, Last dose on Wed01/01/17 at 2100, Routine Given 01/01/2017 20:54 EDT 1,000 mg Given 12/31/2016 20:28 EDT 1,000 mg cycloSPORINE (RESTASIS) 0.05 % ophthalmic emulsion 1 Drop 1 Drop, both eyes, 2 TIMES DAILY, First dose on Wed12/27/16 at 0900, Until Discontinued, Routine Given 01/04/2017 10:35 EDT 1 Drop Given 01/03/2017 21:12 EDT 1 Drop Given 01/03/2017 10:07 EDT 1 Drop dextrose 50 % solution 12.5 g 12.5 g (25 mL), intravenous, PRN, Starting on Wed12/28/16 at 1441, Until Wed01/04/17 at 1926, Low Blood Sugar, Routine docusate sodium (COLACE) capsule 200 mg 200 mg, oral, 2 TIMES DAILY PRN, Starting on Wed12/27/16 at 0230, Until Wed01/04/17 at 1926, Constipation, Routine Given 12/30/2016 13:09 EDT 200 mg Given 2016 20:20 EDT 200 mg enoxaparin (LOVENOX) injection 40 mg 40 mg, subcutaneous, DAILY, First dose on Wed12/27/16 at 0900, Until Discontinued, Routine Given 01/04/2017 10:35 EDT 4 0 mg Given 01/03/2017 10:05 EDT 40 mg Given 01/02/2017 8:35 EDT 40 mg fexofenadine (JUDITH) 12 hr tablet 180 mg 180 mg, oral, DAILY, First dose on Wed12/27/16 at 0900, Until Discontinued, Routine Given 01/04/2017 10:34 EDT 180 mg Given 01/03/2017 10:03 EDT 180 mg Given 01/02/2017 8:35 EDT 180 mg fluticasone (FLONASE) nasal spray 100 mcg 100 mcg, nasal - both, DAILY PRN, Starting on Wed12/30/16 at 0842, Until Wed01/04/17 at 1926, Rhinitis, Routine furosemide (LASIX) injection 20 mg 20 mg, intravenous, NOW X1, 1 dose, On Wed12/27/16 at 1200, Routine Given 12/27/2016 11:48 EDT 20 mg furosemide (LASIX) injection 20 mg 20 mg, intravenous, 2 TIMES DAILY WITH BREAKFAST & DINNER, First dose on Wed12/28/16 at 1045, Until Discontinued, Routine Given 2016 16:26 EDT 20 mg Given 2016 8:13 EDT 20 mg Given 12/28/2016 16:59 EDT 20 mg furosemide (LASIX) injection 40 mg 40 mg, intravenous, NOW X1, 1 dose, On Wed12/29/16 at 2300, Routine Given 2016 23:31 EDT 40 mg furosemide (LASIX) injection 40 mg 40 mg, intravenous, 2 TIMES DAILY WITH BREAKFAST & DINNER, First dose (after last modification) on Wed12/30/16 at 0800, Until Discontinued, Routine Given 12/31/2016 8:24 EDT 40 mg Given 12/30/2016 16:45 EDT 40 mg Given 12/30/2016 8:39 EDT 40 mg glucagon (human recombinant) injection 1 mg 1 mg, intramuscular, PRN, Starting on Wed12/28/16 at 1441, Until Wed01/04/17 at 1926, Low blood sugar, Routine guaiFENesin (MUCINEX) SR tablet 600 mg 600 mg, oral, 2 TIMES DAILY, First dose on Wed12/30/16 at 2100, Until Discontinued, Routine Given 01/04/2017 10:33 EDT 6 00 mg Given 01/03/2017 21:12 EDT 600 mg Given 01/03/2017 10:04 EDT 600 mg hypromellose (ISOPTO TEARS) 0.5 % ophthalmic solution 1 Drop 1 Drop, both eyes, EVERY 4 HOURS PRN, Starting on Wed12/27/16 at 0230, Until Wed01/04/17 at 1926, Dry Eyes, Routine Given 2016 10:28 EDT 1 Drop Given 12/27/2016 21:12 EDT 1 Drop insulin aspart (NOVOLOG FLEXPEN) injection 5 Units 5 Units, subcutaneous, 3 TIMES DAILY WITH MEALS, First dose on [place] 12/31/16 at 1315, Until Discontinued, Routine Given 01/04/2017 12:59 EDT 5 Units Given 01/04/2017 10:35 EDT 5 Units Given 01/03/2017 18:23 EDT 5 Units insulin aspart (NOVOLOG FLEXPEN) injection subcutaneous, 3 TIMES DAILY WITH MEALS, First dose on Wed12/28/16 at 1700, Until Discontinued, Routine Given 01/04/2017 12:57 EDT 3 Units Given 01/03/2017 18:19 EDT 2 Units Given 01/03/2017 13:24 EDT 3 Units insulin aspart (NOVOLOG FLEXPEN) injection subcutaneous, AT BEDTIME, First dose on Wed12/28/16 at 2100, Until Discontinued, Routine insulin NPH (HUMULIN N, NOVOLIN N) injection 10 Units 10 Units, subcutaneous, DAILY, First dose on Wed01/02/17 at 0900, Until Discontinued, Routine Given 01/04/2017 10:36 EDT 10 Units Given 01/03/2017 10:20 EDT 10 Units Given 01/02/2017 9:01 EDT 10 Units ipratropium-albuterol (DUONEB) 0.5 mg-3 mg(2.5 mg base)/3 mL nebulizer solution 3 mL 3 mL, nebulization, NOW X1, 1 dose, On 12/26/16 at 2245, Routine Given by Other 12/27/2016 1:32 EDT 3 mL Given 12/26/2016 22:30 EDT 3 mL ipratropium-albuterol (DUONEB) 0.5 mg-3 mg(2.5 mg base)/3 mL nebulizer solution 3 mL 3 mL, nebulization, NOW X1, 1 dose, On 12/26/16 at 2245, Routine Given 12/26/2016 22:35 EDT 3 mL ipratropium-albuterol (DUONEB) 0.5 mg-3 mg(2.5 mg base)/3 mL nebulizer solution 3 mL 3 mL, nebulization, NOW X1, 1 dose, On 12/26/16 at 2245, Routine Given 12/26/2016 22:40 EDT 3 mL ipratropium-albuterol (DUONEB) 0.5 mg-3 mg(2.5 mg base)/3 mL nebulizer solution 3 mL 3 mL, nebulization, NOW X1, 1 dose, On [place] 12/27/16 at 0100, Routine Given 12/27/2016 0:30 EDT 3 mL ipratropium-albuterol (DUONEB) 0.5 mg-3 mg(2.5 mg base)/3 mL nebulizer solution 3 mL 3 mL, nebulization, EVERY 4 HOURS, First dose on [place] 12/27/16 at 0300, Until Discontinued, Routine Given 12/28/2016 18:20 EDT 3 mL Given 12/28/2016 10:14 EDT 3 mL Given 12/28/2016 6:17 EDT 3 mL ipratropium-albuterol (DUONEB) 0.5 mg-3 mg(2.5 mg base)/3 mL nebulizer solution 3 mL 3 mL, nebulization, EVERY 4 HOURS, First dose (after last modification) on 12/28/16 at 2200, Until Discontinued, Routine Given 12/28/2016 21:46 EDT 3 mL ipratropium-albuterol (DUONEB) 0.5 mg-3 mg(2.5 mg base)/3 mL nebulizer solution 3 mL 3 mL, nebulization, EVERY 4 HOURS, First dose (after last modification) on Wed12/29/16 at 0000, Until Discontinued, Routine Given 01/02/2017 4:58 EDT 3 mL Given 01/02/2017 0:52 EDT 3 mL Given 01/01/2017 20:35 EDT 3 mL ipratropium-albuterol (DUONEB) 0.5 mg-3 mg(2.5 mg base)/3 mL nebulizer solution 3 mL 3 mL, nebulization, 4 TIMES DAILY, First dose (after last modification) on 01/02/17 at 0800, Until Discontinued, Routine Given 01/04/2017 16:08 EDT 3 mL Given 01/04/2017 11:56 EDT 3 mL Given 01/04/2017 7:53 EDT 3 mL ipratropium-albuterol (DUONEB) 0.5 mg-3 mg(2.5 mg base)/3 mL nebulizer solution 1 dose, Starting on 12/26/16 at 2226, Until 12/26/16 at 2230 ipratropium-albuterol (DUONEB) 0.5 mg-3 mg(2.5 mg base)/3 mL nebulizer solution 1 dose, Starting on Wed12/27/16 at 0125, Until Wed12/27/16 at 0132 Given 12/27/2016 1:32 EDT 3 mL magnesium citrate solution 296 mL 296 mL, oral, DAILY PRN, Starting on Wed01/01/17 at 1004, Until Wed01/04/17 at 1926, Other, constipation, Routine magnesium sulfate 2 g in water 50 mL 2 g, intravenous, Administer over 30 Minutes, EVERY HOUR, 2 doses, First dose on Wed12/27/16 at 0300, Last dose on Wed12/27/16 at 0400, Routine Given 12/27/2016 3:30 EDT 2 g Given 12/27/2016 2:49 EDT 2 g methylPREDNISolone sod suc(PF) (SOLU-MEDROL) injection 125 mg 125 mg, intravenous, NOW X1, 1 dose, On 12/26/16 at 2245, STAT Given 12/26/2016 23:34 EDT 125 mg methylPREDNISolone sod suc(PF) (SOLU-MEDROL) injection 60 mg 60 mg, intravenous, EVERY 6 HOURS, First dose on Wed12/27/16 at 0600, Until Discontinued, Routine Given 12/28/2016 8:12 EDT 60 mg Given 12/27/2016 23:34 EDT 60 mg Given 12/27/2016 17:26 EDT 60 mg methylPREDNISolone sod suc(PF) (SOLU-MEDROL) injection 60 mg 60 mg, intravenous, EVERY 12 HOURS, First dose (after last modification) on Wed12/28/16 at 2100, Until Discontinued, Routine Given 2016 8:13 EDT 60 mg Given 12/28/2016 21:12 EDT 60 mg methylPREDNISolone sod suc(PF) (SOLU-MEDROL) injection 60 mg 60 mg, intravenous, DAILY, First dose (after last modification) on Wed12/30/16 at 0900, Until Discontinued, Routine Given 12/30/2016 8:21 EDT 60 mg mometasone-formoterol (DULERA) 200-5 mcg/actuation inhaler 2 Puff 2 Puff, inhalation, 2 TIMES DAILY, First dose on Wed12/27/16 at 0900, Until Discontinued Given 01/04/2017 7:54 EDT 2 Pu ffs Given 01/03/2017 20:00 EDT 2 Puffs Given 01/03/2017 8:07 EDT 2 Puffs montelukast (SINGULAIR) tablet 10 mg 10 mg, oral, DAILY, First dose on Wed12/27/16 at 0900, Until Discontinued, Routine Given 01/04/2017 10:34 EDT 10 mg Given 01/03/2017 10:04 EDT 10 mg Given 01/02/2017 8:35 EDT 10 mg morphine injection 2 mg 2 mg, intravenous, EVERY 4 HOURS PRN, Starting on Wed12/27/16 at 0234, Until Wed12/27/16 at 1140, dyspnea, Routine Given 12/27/2016 9:07 EDT 2 mg Given 12/27/2016 6:45 EDT 2 mg Given 12/27/2016 2:53 EDT 2 mg morphine injection 2 mg 2 mg, intravenous, EVERY 2 HOURS PRN, Starting on Wed12/27/16 at 1145, Until Wed12/30/16 at 0843, dyspnea, Routine Given 12/30/2016 8:21 EDT 2 mg Given 12/30/2016 6:25 EDT 2 mg Given 12/30/2016 4:19 EDT 2 mg morphine solution 2.5 mg 2.5 mg, oral, EVERY 2 HOURS PRN, Starting on Wed12/28/16 at 1024, Until Wed12/30/16 at 0611, shortness of breath, Routine Given 12/30/2016 6:07 EDT 2.5 mg Given 2016 21:18 EDT 2.5 mg Given 12/28/2016 16:21 EDT 2.5 mg morphine solution 2.5 mg 2.5 mg, oral, EVERY 2 HOURS PRN, Starting on 01/02/17 at 1108, Until Wed01/04/17 at 1926, Pain, Routine morphine solution 2.5-5 mg 2.5-5 mg, oral, EVERY 2 HOURS PRN, Starting on Wed12/30/16 at 0611, Until 01/02/17 at 1104, shortness of breath, Routine Given 01/01/2017 14:16 EDT 2.5 mg nystatin (MYCOSTATIN) suspension 500,000 Units 500,000 Units, oral, 4 TIMES DAILY, 28 doses, First dose on Wed12/30/16 at 0900, Last dose on Wed01/06/17 at 0800, Routine Given 01/04/2017 12:56 EDT 500,000 Units Given 01/04/2017 10:32 EDT 500,000 Units Given 01/03/2017 21:11 EDT 500,000 Units ondansetron (PF) (ZOFRAN) 4 mg/2 mL injection 1 dose, Starting on Wed12/28/16 at 2217, Until Wed12/28/16 at 2220 ondansetron (PF) (ZOFRAN) injection 4 mg 4 mg, intravenous, EVERY 4 HOURS PRN, Starting on Wed12/28/16 at 2216, Until Wed01/04/17 at 1926, Nausea, Routine Given 12/31/2016 20:26 EDT 4 mg Given 12/30/2016 21:03 EDT 4 mg Given 12/28/2016 22:20 EDT 4 mg oxyCODONE (ROXICODONE) immediate release tablet 5 mg 5 mg, oral, EVERY 6 HOURS PRN, Starting on Wed12/30/16 at 1122, Until Wed01/04/17 at 1926, Pain, Routine Given 01/04/2017 11:08 EDT 5 mg Given 01/04/2017 5:02 EDT 5 mg Given 01/03/2017 23:07 EDT 5 mg pantoprazole (PROTONIX) tablet 40 mg 40 mg, oral, DAILY, First dose on 12/27/16 at 0900, Until Discontinued Given 01/04/2017 10:33 EDT 40 mg Given 01/03/2017 10:04 EDT 40 mg Given 01/02/2017 8:35 EDT 40 mg PEG 3350-Electrolytes (MIRALAX) packet 17 g 17 g, oral, DAILY, First dose on 12/27/16 at 1200, Until Discontinued, Routine Given 12/30/2016 8:22 EDT 17 g potassium chloride SA (K-DUR, KLOR-CON) tablet 40 mEq 40 mEq, oral, NOW X1, 1 dose, On 12/27/16 at 0300, Routine Given 12/27/2016 2:58 EDT 40 mEq potassium chloride SA (K-DUR, KLOR-CON) tablet 40 mEq 40 mEq, oral, 2 TIMES DAILY WITH BREAKFAST & LUNCH, 2 doses, First dose (after last modification) on 12/27/16 at 0715, Last dose on 12/27/16 at 1200, Routine Given 12/27/2016 11:45 EDT 40 mEq Given 12/27/2016 8:46 EDT 20 mEq potassium chloride SA (K-DUR, KLOR-CON) tablet 40 mEq 40 mEq, oral, NOW X1, 1 dose, On [place] 12/31/16 at 1245, Routine Given 12/31/2016 12:45 EDT 40 mEq potassium, sodium phosphates (PHOS-NAK) 280-160-250 mg packet 8 mmol 8 mmol (1 Packet), oral, EVERY 8 HOURS, 3 doses, First dose on 12/27/16 at 0715, Last dose on 12/27/16 at 2315, Routine Given 12/27/2016 23:34 EDT 8 mmol Given 12/27/2016 14:57 EDT 8 mmol Given 12/27/2016 8:46 EDT 8 mmol predniSONE (DELTASONE) tablet 50 mg 50 mg, oral, DAILY, First dose on 01/03/17 at 0900, Until Discontinued, Routine Given 01/04/2017 10:32 EDT 50 mg Given 01/03/2017 10:04 EDT 50 mg predniSONE (DELTASONE) tablet 60 mg 60 mg, oral, DAILY, First dose on [place] 12/31/16 at 0900, Until Discontinued, Routine Given 01/02/2017 8:35 EDT 60 mg Given 01/01/2017 8:14 EDT 60 mg Given 12/31/2016 8:21 EDT 60 mg pregabalin (LYRICA) capsule 300 mg 300 mg, oral, 2 TIMES DAILY, First dose on 12/27/16 at 2100, Until Discontinued, Routine Given 01/04/2017 10:32 EDT 3 00 mg Given 01/03/2017 21:11 EDT 300 mg Given 01/03/2017 10:08 EDT 300 mg ramelteon (ROZEREM) tablet 8 mg 8 mg, oral, AT BEDTIME PRN, Starting on 12/27/16 at 2101, Until Wed01/04/17 at 1926, Sleep, Routine Given 01/03/2017 23:07 EDT 8 mg Given 01/03/2017 0:09 EDT 8 mg Given 01/01/2017 21:47 EDT 8 mg roflumilast tablet 500 mcg 500 mcg, oral, DAILY, First dose on Wed12/27/16 at 0900, Until Discontinued Given 01/04/2017 10:34 EDT 500 mcg Given 01/03/2017 10:19 EDT 500 mcg Given 01/02/2017 9:15 EDT 500 mcg rOPINIRole (REQUIP) tablet 2 mg 2 mg, oral, AT BEDTIME, First dose on Wed12/27/16 at 2100, Until Discontinued, Routine Given 01/03/2017 21:12 EDT 2 mg Given 01/02/2017 21:22 EDT 2 mg Given 01/01/2017 20:55 EDT 2 mg senna (SENOKOT) tablet 1 Tab 1 Tablet, oral, AT BEDTIME, First dose on 12/27/16 at 2100, Until Discontinued, Routine Given 2016 20:2 0 EDT 1 Tablet Given 12/28/2016 21:12 EDT 1 Tablet Given 12/27/2016 20:58 EDT 1 Tablet senna (SENOKOT) tablet 2 Tab 2 Tablet, oral, AT BEDTIME, First dose (after last modification) on Wed12/30/16 at 2100, Until Discontinued, Routine Given 01/02/2017 21:22 EDT 2 Tablets Given 12/31/2016 20:27 EDT 2 Tablets Given 12/30/2016 20:05 EDT 2 Tablets sertraline (ZOLOFT) tablet 200 mg 200 mg, oral, AT BEDTIME, First dose (after last modification) on Wed12/27/16 at 2100, Until Discontinued, Routine Given 01/03/2017 21:11 EDT 200 mg Given 01/02/2017 21:22 EDT 200 mg Given 01/01/2017 20:54 EDT 200 mg sodium chloride (OCEAN) 0.65 % nasal spray 1 [place] 1 [place], nasal - both, PRN, Starting on Wed12/28/16 at 1740, Until Wed01/04/17 at 1926, Dryness, Routine Given 01/01/2017 18:39 EDT 1 [place] sumatriptan (IMITREX) tablet 50 mg 50 mg, oral, NOW X1, 1 dose, On Wed12/27/16 at 1230, Routine Given 12/27/2016 12:35 EDT 50 mg sumatriptan (IMITREX) tablet 50 mg 50 mg, oral, EVERY 2 HOURS PRN, 2 doses, Starting on Wed12/27/16 at 2100, Until Wed12/28/16 at 0356, Migraine, Routine Given 12/28/2016 3:56 EDT 50 mg Given 12/27/2016 21:42 EDT 50 mg sumatriptan (IMITREX) tablet 50 mg 50 mg, oral, EVERY 2 HOURS PRN, 2 doses, Starting on Wed12/28/16 at 2225, Until Wed12/29/16 at 0201, Migraine, Routine Given 2016 2:01 EDT 50 mg Given 12/28/2016 22:37 EDT 50 mg sumatriptan (IMITREX) tablet 50 mg 50 mg, oral, EVERY 2 HOURS PRN, 2 doses, Starting on Wed12/29/16 at 2131, Until Wed12/30/16 at 0312, Migraine, Routine Given 12/30/2016 3:12 EDT 50 mg Given 2016 21:40 EDT 50 mg documented in this encounter Discontinued Medications Medication Sig Discontinue Reason Start Date End Da te metFORMIN (GLUCOPHAGE) 500 mg tablet Take 1 Tab by mouth 2 times daily. While on steroid taper 01/04/2017 01/04/2017 HYDROcodone-acetaminophe n (NORCO) 5-325 mg tabletIndications:Chroni c pain syndrome,Cervicalgia,Chr onic knee pain, unspecified laterality,Chronic back pain Take 1 Tab by mouth 4 times daily for 11 days Earliest Fill Date: 09/23/15 Daily Max: 4 Tabs 09/23/2015 01/04/2017 HYDROcodone-acetaminophe n (NORCO) 5-325 mg tabletIndications:Chroni c pain syndrome Take 1-2 Tabs by mouth every 6 hours as needed for up to 28 days for Pain. Earliest Fill Date: 01/21/17 Daily Max: 8 Tabs 01/21/2017 01/04/2017 HYDROcodone-acetaminophe n (NORCO) 5-325 mg tabletIndications:Chroni c pain syndrome Take 1-2 Tabs by mouth every 6 hours as needed for up to 28 days for Pain. Earliest Fill Date: 12/23/16 Daily Max: 8 Tabs 12/24/2016 01/04/2017 documented as of this encounter Active and Recently Administered Medications Times are shown in EDT. Scheduled Medication Order 01/02/2017 01/03/2017 01/04/2017 cycloSPORINE (RESTASIS) 0.05 % ophthalmic emulsion 1 Drop 1 Drop, both eyes, 2 TIMES DAILY, First dose on 12/27/16 at 0900, Until Discontinued, Routine 0842 (Given - Provider: Yadira Carballo RN)2128 (Given - Provider: Henny Thompson RN) 1007 (Given - Provider: Didier Ovalles RN)2112 (Given - Provider: Manjeet Chamberlain RN) 1035 (Given - Provider: Didier Ovalles RN) enoxaparin (LOVENOX) injection 40 mg 40 mg, subcutaneous, DAILY, First dose on 12/27/16 at 0900, Until Discontinued, Routine 0835 (Given - Provider: Yadira Carballo RN) 1005 (Given - Provider: Didier Ovalles RN) 1035 (Given - Provider: Didier Ovalles RN) fexofenadine (JUDITH) 12 hr tablet 180 mg 180 mg, oral, DAILY, First dose on Wed12/27/16 at 0900, Until Discontinued, Routine 0835 (Given - Provider: Yadira Carballo RN) 1003 (Given - Provider: Didier Ovalles RN) 1034 (Given - Provider: Didier Ovalles RN) guaiFENesin (MUCINEX) SR tablet 600 mg 600 mg, oral, 2 TIMES DAILY, First dose on Wed12/30/16 at 2100, Until Discontinued, Routine 0835 (Given - Provider: Yadira Carballo RN)2122 (Given - Provider: Henny Thompson RN) 1004 (Given - Provider: Didier Ovalles RN)2112 (Given - Provider: Manjeet Chamberlain RN) 1033 (Given - Provider: Didier Ovalles RN) insulin aspart (NOVOLOG FLEXPEN) injection 5 Units 5 Units, subcutaneous, 3 TIMES DAILY WITH MEALS, First dose on Wed12/31/16 at 1315, Until Discontinued, Routine 0848 (Given - Provider: Yadira Carballo RN)1300 (Given - Provider: Yadira Carballo RN)1815 (Given - Provider: Susan Das RN) 1006 (Given - Provider: Didier Ovalles RN)1327 (Given - Provider: Didier Ovalles RN)1823 (Given - Provider: Didier Ovalles RN) 1035 (Given - Provider: Didire Ovalles RN)1259 (Given - Provider: Didier Ovalles RN)1700 (Canceled Entry - Provider: Batch Job User Admin - Comment: Automatically canceled at discontinue of medication order) insulin aspart (NOVOLOG FLEXPEN) injection subcutaneous, 3 TIMES DAILY WITH MEALS, First dose on Wed12/28/16 at 1700, Until Discontinued, Routine 0846 (Not Given - Provider: Yadira Carballo RN - Reason: Order parameters not met)1255 (Given - Provider: Yadira Carballo RN)1816 (Given - Provider: Susan M Maisch, RN) 0909 (Not Given - Provider: Didier Ovalles RN - Reason: Order parameters not met)1324 (Given - Provider: Didier Ovalles RN)1819 (Given - Provider: Didier Ovalles RN) 0837 (Not Given - Provider: Didier Ovalles RN - Reason: Order parameters not met)1257 (Given - Provider: Didier Ovalles RN)1700 (Canceled Entry - Provider: Batch Job User Admin - Comment: Automatically canceled at discontinue of medication order) insulin aspart (NOVOLOG FLEXPEN) injection subcutaneous, AT BEDTIME, First dose on Wed12/28/16 at 2100, Until Discontinued, Routine 220 (Not Given - Provider: Henny Thompson RN - Reason: Order parameters not met) 2104 (Not Given - Provider: Manjeet Chamberlain RN - Reason: Order parameters not met) insulin NPH (HUMULIN N, NOVOLIN N) injection 10 Units 10 Units, subcutaneous, DAILY, First dose on Wed01/02/17 at 0900, Until Discontinued, Routine 0901 (Given - Provider: Yadira Carballo RN) 1020 (Given - Provider: Didier Ovalles RN - Comment: FS 138) 1036 (Given - Provider: Didier Ovalles RN) ipratropium-albuterol (DUONEB) 0.5 mg-3 mg(2.5 mg base)/3 mL nebulizer solution 3 mL (CANCELED) 3 mL, nebulization, EVERY 4 HOURS, First dose (after last modification) on Wed12/29/16 at 0000, Until Discontinued, Routine 0052 (Given - Provider: Khushboo Martin RT)0458 (Given - Provider: Khushboo Martin RT) ipratropium-albuterol (DUONEB) 0.5 mg-3 mg(2.5 mg base)/3 mL nebulizer solution 3 mL 3 mL, nebulization, 4 TIMES DAILY, First dose (after last modification) on 01/02/17 at 0800, Until Discontinued, Routine 0831 (Given - Provider: Kimmy Garza RT)1347 (Given - Provider: Kimmy Garza RT)1709 (Given - Provider: Vicky Coffman RT)195 (Given - Provider: Jean Parekh RT)2100 (Canceled Entry - Provider: Jean Parekh RT) 0753 (Given - Provider: Vicky Coffman RT)1150 (Not Given - Provider: Vicky Coffman RT - Reason: Patient/family refused)1803 (Given - Provider: Vicky Coffman RT)1999 (Given - Provider: Luiz Willard RT) 0753 (Given - Provider: Chavo Del Castillo, RT)1156 (Given - Provider: Chavo Del Castillo, RT)1608 (Given - Provider: Dana Louie, RT) mometasone-formoterol (DULERA) 200-5 mcg/actuation inhaler 2 Puff 2 Puff, inhalation, 2 TIMES DAILY, First dose on 12/27/16 at 0900, Until Discontinued 0831 (Given - Provider: Kimmy Garza RT)1957 (Given - Provider: Jean Parekh RT)2100 (Canceled Entry - Provider: Jean Parekh RT) 0807 (Given - Provider: Vicky Coffman RT)1999 (Given - Provider: Luiz Willard RT) 0754 (Given - Provider: Chavo Del Castillo RT)0900 (Canceled Entry - Provider: Chavo Del Castillo RT) montelukast (SINGULAIR) tablet 10 mg 10 mg, oral, DAILY, First dose on 12/27/16 at 0900, Until Discontinued, Routine 0835 (Given - Provider: Yadira Carballo RN) 1004 (Given - Provider: Didier Ovalles, CHRIS) 1034 (Given - Provider: Didier Ovalles, CHRIS) nystatin (MYCOSTATIN) suspension 500,000 Units 500,000 Units, oral, 4 TIMES DAILY, 28 doses, First dose on Wed12/30/16 at 0900, Last dose on Wed01/06/17 at 0800, Routine 0836 (Given - Provider: Yadira Carballo RN)1255 (Given - Provider: Yadira Carballo RN)1607 (Given - Provider: Mona Lewis RN)212 (Given - Provider: Henny Thompson RN) 1005 (Given - Provider: Didier Ovalles RN)1327 (Given - Provider: Didier Ovalles RN)1709 (Given - Provider: Didier Ovalles RN)2111 (Given - Provider: Manjeet Chamberlain RN) 1032 (Given - Provider: Didier Ovalles RN)1256 (Given - Provider: Didier Ovalles RN)1700 (Canceled Entry - Provider: Batch Job User Admin - Comment: Automatically canceled at discontinue of medication order) pantoprazole (PROTONIX) tablet 40 mg 40 mg, oral, DAILY, First dose on 12/27/16 at 0900, Until Discontinued 0835 (Given - Provider: Yadira Carballo RN) 1004 (Given - Provider: Didier Ovalles RN) 1033 (Given - Provider: Didier Ovalles RN) PEG 3350-Electrolytes (MIRALAX) packet 17 g 17 g, oral, DAILY, First dose on 12/27/16 at 1200, Until Discontinued, Routine 0851 (Not Given - Provider: Yadira Carballo RN - Reason: Patient/family refused) 1003 (Not Given - Provider: Didier Ovalles RN - Reason: Patient/family refused) 1043 (Not Given - Provider: Didier Ovalles RN - Reason: Patient/family refused) predniSONE (DELTASONE) tablet 50 mg 50 mg, oral, DAILY, First dose on 01/03/17 at 0900, Until Discontinued, Routine 1004 (Given - Provider: Didier Ovalles RN) 1032 (Given - Provider: Didier Ovalles RN) predniSONE (DELTASONE) tablet 60 mg (CANCELED) 60 mg, oral, DAILY, First dose on [place] 12/31/16 at 0900, Until Discontinued, Routine 0835 (Given - Provider: Yadira Carballo RN) pregabalin (LYRICA) capsule 300 mg 300 mg, oral, 2 TIMES DAILY, First dose on 12/27/16 at 2100, Until Discontinued, Routine 08 (Given - Provider: Yadira Carballo, RN)2120 (Given - Provider: Henny Thompson RN) 100 (Given - Provider: Didier Ovalles, CHRIS)2110 (Given - Provider: Manjeet Chamberlain, RN) 1031 (Given - Provider: Didier Ovalles, CHRIS) roflumilast tablet 500 mcg 500 mcg, oral, DAILY, First dose on Wed12/27/16 at 0900, Until Discontinued 914 (Given - Provider: Yadira Carballo RN) 101 (Given - Provider: Didier Ovalles, CHRIS) 103 (Given - Provider: Didier Ovalles, CHRIS) rOPINIRole (REQUIP) tablet 2 mg 2 mg, oral, AT BEDTIME, First dose on 12/27/16 at 2100, Until Discontinued, Routine 2121 (Given - Provider: Henny Thompson RN) 2111 (Given - Provider: Manjeet Chamberlain, RN) senna (SENOKOT) tablet 2 Tab 2 Tablet, oral, AT BEDTIME, First dose (after last modification) on Wed12/30/16 at 2100, Until Discontinued, Routine 2121 (Given - Provider: Henny Thompson RN) 2117 (Not Given - Provider: Manjeet Chamberlain, RN - Reason: Patient/family refused) sertraline (ZOLOFT) tablet 200 mg 200 mg, oral, AT BEDTIME, First dose (after last modification) on 12/27/16 at 2100, Until Discontinued, Routine 2121 (Given - Provider: Henny Thompson RN) 2110 (Given - Provider: Manjeet Chamberlain, RN) PRN Medication Order 01/02/2017 01/03/2017 01/04/2017 acetaminophen (TYLENOL) tablet 1,000 mg 1,000 mg, oral, EVERY 6 HOURS PRN, Starting on Wed12/30/16 at 0845, Until Wed01/04/17 at 1926, Pain, Routine 11 (Given - Provider: Esme Salcido RN)2121 (Given - Provider: Henny Thompson RN) 1109 (Given - Provider: Didier Ovalles RN) albuterol (ACCUNEB) nebulizer solution 2.5 mg 2.5 mg, nebulization, EVERY 4 HOURS PRN, Starting on Wed01/02/17 at 1101, Until Wed01/04/17 at 1926, Wheezing, Routine butalbital-acetaminoph en-caffeine (FIORICET, ESGIC) 50-325-40 mg per tablet 1 Tab 1 Tablet, oral, EVERY 4 HOURS PRN, Starting on Wed12/30/16 at 1006, Until Wed01/04/17 at 1926, Headaches, Routine 1305 (Given - Provider: Yadira Carballo, RN)2122 (Given - Provider: Henny Thompson, CHRIS) 1709 (Given - Provider: Didier Ovalles, CHRIS) calcium carbonate (TUMS) 200 mg calcium (500 mg) per chewable tablet tablet,chewable 1 Tab 1 Tablet, oral, 4 TIMES DAILY PRN, Starting on Wed12/28/16 at 2134, Until Wed01/04/17 at 1926, Heartburn, Routine dextrose 50 % solution 12.5 g 12.5 g (25 mL), intravenous, PRN, Starting on Wed12/28/16 at 1441, Until Wed01/04/17 at 1926, Low Blood Sugar, Routine docusate sodium (COLACE) capsule 200 mg 200 mg, oral, 2 TIMES DAILY PRN, Starting on Wed12/27/16 at 0230, Until Wed01/04/17 at 1926, Constipation, Routine fluticasone (FLONASE) nasal spray 100 mcg 100 mcg, nasal - both, DAILY PRN, Starting on Wed12/30/16 at 0842, Until Wed01/04/17 at 1926, Rhinitis, Routine glucagon (human recombinant) injection 1 mg 1 mg, intramuscular, PRN, Starting on Wed12/28/16 at 1441, Until Wed01/04/17 at 1926, Low blood sugar, Routine hypromellose (ISOPTO TEARS) 0.5 % ophthalmic solution 1 Drop 1 Drop, both eyes, EVERY 4 HOURS PRN, Starting on Wed12/27/16 at 0230, Until Wed01/04/17 at 1926, Dry Eyes, Routine magnesium citrate solution 296 mL 296 mL, oral, DAILY PRN, Starting on Wed01/01/17 at 1004, Until Wed01/04/17 at 1926, Other, constipation, Routine morphine solution 2.5 mg 2.5 mg, oral, EVERY 2 HOURS PRN, Starting on 01/02/17 at 1108, Until Wed01/04/17 at 1926, Pain, Routine ondansetron (PF) (ZOFRAN) injection 4 mg 4 mg, intravenous, EVERY 4 HOURS PRN, Starting on Wed12/28/16 at 2216, Until Wed01/04/17 at 1926, Nausea, Routine oxyCODONE (ROXICODONE) immediate release tablet 5 mg 5 mg, oral, EVERY 6 HOURS PRN, Starting on Wed12/30/16 at 1122, Until Wed01/04/17 at 1926, Pain, Routine 0012 (Given - Provider: Esme Salcido RN)0900 (Given - Provider: Yadira Carballo RN)1557 (Given - Provider: Mona Lewis RN - Comment: lower back pain)2208 (Given - Provider: Henny Thompson RN) 1019 (Given - Provider: Didier Ovalles RN)1709 (Given - Provider: Didier Ovalles RN)2307 (Given - Provider: Manjeet Chamberlain, CHRIS) 0502 (Given - Provider: Manjeet Chamberlain, CHRIS)1108 (Given - Provider: Didier Ovalles, CHRIS) ramelteon (ROZEREM) tablet 8 mg 8 mg, oral, AT BEDTIME PRN, Starting on Wed12/27/16 at 2101, Until Wed01/04/17 at 1926, Sleep, Routine 0009 (Given - Provider: Juanis Black RN)2307 (Given - Provider: Manjeet Chamberlain, RN) sodium chloride (OCEAN) 0.65 % nasal spray 1 [place] 1 [place], nasal - both, PRN, Starting on Wed12/28/16 at 1740, Until Wed01/04/17 at 1926, Dryness, Routine documented in this encounter Orders Medications Ordered That Victor Manuel ht Not Have Been Administered Count Last Ordered Date First Ordered Date albuterol (ACCUNEB) nebulize r solution 2.5 mg 3 01/02/2017 12/27/2016 morphine solution 2.5 mg 2 01/02/2017 magnesium citrate solution 296 mL 1 017 potassium chloride (KLOR-CON ) packet 40 mEq 1 12/31/2016 fluticasone (FLONASE) nasal spray 100 mcg 1 12/30/2016 dextrose 50 % solution 12.5 g 1 12/28/2016 glucagon (human recombinant) injection 1 mg 1 12/28/2016 insulin aspart (NOVOLOG FLEXPEN) injection 1 12/28/2016 magnesium sulfate 2 g in water 50 mL 1 12/12 potassium chloride SA (K-DUR , KLOR-CON) tablet 40 mEq 1 12/27/2016 sertraline (ZOLOFT) tablet 200 mg 1 017 tiotropium (SPIRIVA) 18 mcg inhalation capsule 18 mcg 1 12/27/2016 Lab Orders Without Results Count Last Ordered D ate First Ordered Date POCT BLOOD GAS, G3 I-STAT (BASIC ABG VBG) 2 12/27/2016 12/26/2016 Diet Count Last Ordered Date First Orde red Date DISCHARGE DIET 1 01/04/2017 Nursing Count Last Ordered Date First Orde red Date ACTIVITY INSTRUCTIONS 1 01/04/2017 BATHING INSTRUCTIONS 1 01/04/2017 HEIGHT AND WEIGHT 1 12/27/2016 ED TELEMETRY MONITORING 1 12/26/2016 INSERT PERIPHERAL IV 1 12/26/2016 INSERT SALINE LOCK 1 12/26/2016 PT Count Last Ordered Date First Orde red Date PT EVALUATION AND TREAT 1 01/04/2017 Respiratory Care Count Last Ordered Date First Ordered Date EVAL FOR HOME OXYGEN USE 1 01/04/2017 DRY POWDERED OR METERED DOSE INHALER 18 12/1312/27/2016 NEBULIZER TX INTERMITTENT 48 01/03/2017 RESPIRATORY CARE EVALUATION ONLY 32 01/01/20 17 12/27/2016 BIPAP - RT 2 12/27/2016 12/26/2016 IV Count Last Ordered Date First Orde red Date IV REQUEST 2 12/30/2016 12/28/2016 Admission Count Last Ordered Date First Orde red Date ED BED REQUEST 1 12/27/2016 STATUS: INPATIENT ACUTE ADMISSION 1 017 Transfer Count Last Ordered Date First Orde red Date CHANGE ATTENDING TO: 1 01/04/2017 NOTIFY PPS OF DISCHARGE COMPLETE 1 01/05/20 17 PPS NOTIFICATION OF PATIENT ARRIVAL ON UNIT 2 01/02/2017 12/27/2016 TRANSFER PATIENT 1 01/02/2017 UR PATIENT STATUS CHANGE 1 12/27/2016 Discharge Count Last Ordered Date First Orde red Date DISCHARGE PATIENT 1 01/04/2017 Legal Count Last Ordered Date First Orde red Date MISCELLANEOUS DISCHARGE INSTRUCTIONS 1 12/13 Equipment Count Last Ordered Date First Orde red Date ACCU-CHECK FRANKY KIT 1 01/04/2017 ONE TOUCH DELICA LANCETS 1 01/04/2017 documented in this encounter Care Teams College Counselor Relationship Specialty Start Date End Date Jean Munoz MD [address] [place] [phone] PCP - General 12/31/08 Manny Rizzo MD [address] [place] [id number] 04/20/10 documented as of this encounter
--- OUTSIDE RECORDS SUMMARY | 2024-06-10 07:22 | XMS_ITS | Encounter Summary ---
Author Organization [facility] Address [address] [place] [address] Care Team Providers Care Guinea Pig Breeder Name Role Phone Jean Munoz MD Primary Care Provider Manny Rizzo MD Unavailable Reason for Referral * (Routine) - Closed Specialty Diagnoses / Procedures [facility]erred To Contact Diagnoses Simple chronic bronchitis ([facility]) Procedures SIMPLE STRESS TEST (6 MIN WALK W/O EKG) Jeanette Virk MD [address] [facility] [place] [address] Referral ID Status Reason Start Date Expiration Date Visits Re quested Visits Authorized [id number] Closed 02/02/2017 1 1 Reason for Visit * Reason Onset Date Comments Chronic Obstructive Pulmonary Disease 01/03/2017 Encounter Details Date Type Department Care Team (Late st Contact Info) Description 01/03/2017 Orders Only [facility] Pulmonology & Critical Care - [facility] [address], [place] [id number] Xena Jiménez MD [address] [place] [address] [address] [place] [address] Simple chronic bronchitis ([facility]) (Primary Dx) Social History Tobacco Use Types [...] [facility] [address] [place] [address] Jean Munoz MD [address] [place] [phone] Scheduled Orders Name Type Priority Associated Diagnoses Orde r Schedule SPIROMETRY PFT Routine Simple chronic bronchitis (HCC-CMS) Ordered: 01/03/2017 SIMPLE STRESS TEST (6 MIN WALK W/O EKG) PFT Routine Simple chronic bronchitis (HCC-CMS) Expected: 02/02/2017, Expires: 01/03/2018 documented as of this encounter Visit Diagnoses Diagnosis Simple chronic bronchitis (HCC-CMS)- Primary Simple chronic bronchitis Screening for osteoporosis- Primary Special screening for osteoporosis Primary narcolepsy without cataplexy Chronic pain syndrome Chronic low back pain Lumbago Chronic use of opiate for therapeutic purpose Pain medication agreement Encounter for long-term (current) use of other medications Screen for colon cancer Special screening for malignant neoplasms, colon documented in this encounter Care Teams Guinea Pig Breeder Relationship Specialty Start Date End Date Jean Munoz MD [address] [place] [address] PCP - General 12/31/08 Manny Rizzo MD [address] [place] [phone] 04/20/10 documented as of this encounter
--- OUTSIDE RECORDS SUMMARY | 2024-06-10 07:22 | XMS_ITS | Encounter Summary ---
Author Organization [facility] Address [address] [place] [address] Care Team Providers Care Lead Project Manager Name Role Phone Jean Munoz MD Primary Care Provider Manny Rizzo MD Unavailable Reason for Referral * Consult (Routine/Next Available) - Specialty Report Received Specialty Diagnoses / Procedures [facility] Referred To Contact Dermatology Diagnoses Fibrous papule of nose Jean Munoz MD [address] [place] [address] [place] [address] [address] [place] [address] Referral ID Status Reason Start Date Expiration Date Visits Requested Visits Authorized [id number] Specialty Report Received Specialty Services Required 6 1 1 Question Answer Reason for Request: papule on nose, ?biopsy Reason for Visit * Reason Comments Annual Exam Flu Vaccine Encounter Details Date Type Department Care Team (Latest Contact Info) Description 07/01/2016 13:45 EDT Office Visit [facility] [address] [place] [address] Jean Munoz MD [address] [place] [phone] Routine physical examination (Primary Dx); Screening for HIV (human immunodeficiency virus); Need for influenza vaccination; Chronic pain syndrome; Tobacco dependence in remission; Fatty liver; Impaired glucose tolerance; Cervicalgia; Chronic knee pain, unspecified laterality; Fibrous papule of nose; Tinnitus, bilateral Discharge Disposition: Auto Discharge Social History Tobacco [...] Sign Reading Time Taken Comments Blood Pressure 134/78 07/01/2016 1350 EDT Pulse 88 07/01/2016 1350 EDT Temperature 36.6 ??C (97.9 ??F) 07/01/2016 1350 EDT Respiratory Rate 20 07/01/2016 1350 EDT Oxygen Saturation - - Inhaled Oxygen Concentration - - Weight 89.4 kg (197 lb) 07/01/2016 1350 EDT Height 162.6 cm (5' 4.02) 07/01/2016 1350 EDT Body Mass Index 33.8 07/01/2016 1350 EDT documented in this encounter Functional Status [...] Yes 02/15/2014 documented as of this encounter Discharge Diagnoses Diagnosis Z00.00 Encounter for general adult medical examination without abnormal findings-Z00.00[ICD-10-CM] Z11.4 Encounter for screening for human immunodeficiency virus [HIV]-Z11.4[ICD-10-CM] Z23 Encounter for immunization-Z23[ICD-10-CM] G89.4 Chronic pain syndrome-G89.4[ICD-10-CM] F17.201 Nicotine dependence, unspecified, in remission-F17.201[ICD-10-CM] K76.0 Fatty (change of) liver, not elsewhere classified-K76.0[ICD-10-CM] R73.02 Impaired glucose tolerance (oral)-R73.02[ICD-10-CM] M54.2 Cervicalgia-M54.2[ICD-10-CM] M25.569 Pain in unspecified knee-M25.569[ICD-10-CM] G89.29 Other chronic pain-G89.29[ICD-10-CM] D22.39 Melanocytic nevi of other parts of face-D22.39[ICD-10-CM] H93.13 Tinnitus, bilateral-H93.13[ICD-10-CM] documented in this encounter Ordered Prescriptions Prescription Sig Dispensed Refills Start Date End Da te HYDROcodone-acetaminophen (NORCO) 5-325 mg tabletIndications:Chronic pain syndrome,Chronic knee pain, unspecified laterality Take 1-2 Tabs by mouth every 6 hours as needed for up to 28 days for Pain. Earliest Fill Date: 07/09/16 Daily Max: 8 Tabs 112 Tab 07/09/2016 10/01/2016 HYDROcodone-acetaminophen (NORCO) 5-325 mg tabletIndications:Chronic pain syndrome,Chronic knee pain, unspecified laterality Take 1-2 Tabs by mouth every 6 hours as needed for up to 28 days for Pain. 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 Earliest Fill Date: 09/03/16 Daily Max: 8 Tabs 112 Tab 09/03/2016 10/01/2016 documented in this encounter Discharge Disposition Disposition Code Departure Means Destination Auto Discharge documented in this encounter Progress Notes * Jean Munoz MD - 07/01/2016 1778 EDT Female Well Adult Preventative Care Visit Patient ID: Liset Viera is an 55 y.o. female. Subjective: HISTORY OF PRESENT ILLNESS: Chief Complaint Patient presents with ??? Annual Exam ??? Flu Vaccine See Health Care Questionnaire for details and ROS. GERD on prn omeprazole Cant give urine sample due to hesitancy Had mammogram Active problem list, past medical history, past surgical history, medications, allergies, family history and social history were reviewed. Behavioral Health Screen PHQ-2 Little interest or pleasure in doing things?: several days Feeling down, depressed, or hopeless?: several days PHQ-2 SUBTOTAL: 2 PHQ-9 HEYDI-2 HEYDI-7 SASQ How many times in the past year have you had 4 or more drinks in a single day?: Never AUDIT-10 Prescription Misuse How many times in the past year have you used an illegal drug or used a prescription medication fornon-medical reasons?: Never DAST-10 Patient Active Problem List Diagnosis ??? Severe [...] of right hand ??? Nausea Past Medical History Diagnosis Date ??? Abdominal pain 07/27/04 ??? Abscess of face 09/21/2010 ??? Achilles tendonitis 12/04/05 ??? Atypical pneumonia 04/05/2012 ??? Brachial neuritis or radiculitis NOS 11/06/09 ??? Bronchitis 10/10/01 ??? Chest pain 12/11/03 12/20/03 CL=ETT neg ??? Conjunctivitis 08/24/01 ??? Constipation 03/18/04 ??? Dermatophytosis 03/23/05 ??? Dizziness 12/26/09 ??? Edema of leg 12/31/2009 ??? Fever, unspecified 08/26/04 ??? Fracture of [...] UTI 11/20/99 ??? Vaginitis 03/03/00 Past Surgical History Procedure Laterality Date ??? Salpingectomy 1982 ectopic ??? Hysterectomy, vaginal menorrhagia ??? Shoulder arthroscopy 10/15 left, with acromioplasty ??? Gastric fundoplication 03/02/07 [facility] ??? Cervical spine surgery 12/31/08 discectomy, fusion C4-7 Dr Dewitt ??? Colonoscopy 07/29/09 repeat 10 years ??? Ankle fracture surgery 04/01/10 left ankle [facility] ??? Cyst incision and drainage 09/17/10 left cheek ??? Fine needle aspiration 09/19/10 left cheek ??? Cystoscopy 02/14/13 Current Outpatient Prescriptions Medication Sig Dispense Refill [...] directed 3 Inhaler 3 ??? [START ON 09/03/2016] HYDROcodone-acetaminophen (NORCO) 5-325 mg tablet Take 1-2 Tabs by mouth every 6 hours as needed for up to 28 days for Pain. Earliest Fill Date: 09/03/16 Daily Max: 8 Tabs 112 Tab 0 ??? [START ON 08/06/2016] HYDROcodone-acetaminophen (NORCO) 5-325 mg tablet Take 1-2 Tabs by mouth every 6 hours as needed for up to 28 days for Pain. Earliest Fill Date: 08/06/16 Daily Max: 8 Tabs 112 Tab 0 ??? [START ON 07/09/2016] HYDROcodone-acetaminophen (NORCO) 5-325 mg tablet Take 1-2 Tabs by mouth every 6 hours as needed for up to 28 days for Pain. Earliest Fill Date: 07/09/16 Daily Max: 8 Tabs 112 Tab 0 [...] SIX HOURS NEEDED 3 Inhaler 3 ??? [START ON 07/02/2016] methylphenidate (RITALIN;METHYLIN) 20 mg tablet Take 2 tabs by mouth in the morning. Earliest Fill Date: 07/02/16 60 Tab 0 ??? [START ON 07/02/2016] methylphenidate (RITALIN;METHYLIN) 10 mg tablet Take one tab in the afternoon for narcolepsy. Earliest Fill Date: 07/02/16 30 Tab 0 ??? montelukast (SINGULAIR) 10 [...] Sleep. Daily Max: 5 mg 28 Tab 4 No current facility-administered medications for this visit. Allergies Allergen Reactions ??? Toradol [Ketorolac Tromethamine] Hives ??? Motrin [Ibuprofen] Itching Family History Problem Relation Age of Onset [...] lung and bone ??? Asthma Mother ??? Cataract Maternal Grandfather ??? Depression Maternal Grandfather ??? Glaucoma Neg Hx ??? Macular Degeneration Neg Hx ??? Blindness Neg Hx ??? Depression Brother ??? Depression Brother Social History Social History ??? Marital status: [...] and Daughter Yadira Currently living alone in [place] in [facility] Objective: Visit Vitals ??? BP 134/78 (BP Cuff Location: Left arm, Patient Position: Sitting, BP Cuff Sizes: Adult, regular) ??? Pulse 88 ??? Temp 36.6 ??C (97.9 ??F) (Tympanic) ??? Resp 20 ??? Ht 162.6 cm (64.02) ??? Wt 89.4 kg (197 lb) ??? LMP 01/11/1987 ??? BMI 33.8 kg/m2 Body mass index is 33.8 kg/(m^2). Physical Exam Constitutional: She is oriented [...] exhibits no discharge. Scleral icterus is present. glasses Neck: Normal range of motion. Neck supple. [...] is warm and dry. No rash noted. Papule on nose Psychiatric: Her behavior is normal. Nursing note and vitals reviewed. Assessment: Breast cancer screen: URD Cervical cancer screen: NA Colon cancer screen: Screening colonoscopy not indicated: recently screened, not due Skin cancer screen: We reviewed the characteristics of concerning skin lesions. Patient does reportany concerning lesions. Gonorrhea/Chlamydia Screen (<24 yr or high risk): declined Eye care: Counseled. Dental care: Counseled. Hearing: patient does not have concerns. +tinnitus Lipid screen: indicated: screening ordered. Counseled. DM screen: indicated: screening ordered. Counseled. HTN screen: BP is normal today. Counseled. Depression symptoms: none EtOH use: reports that she does not drink alcohol.. Counseled. Tobacco use: reports that she quit smoking about 3 years ago. Her smoking use included Cigarettes. She started smoking about 40 years ago. She has a 78.75 pack-year smoking history. She has never used smokeless tobacco.. Counseled. Substance abuse: reports that she does not use illicit drugs.. Counseled. Weight: obese (BMI 30-39). Counseled. Exercise:walking when I can limited by breathing and painCounseled. Injury prevention: No discussed. Immunizations: Counseled about: influenza (annual for everybody) Immunization History Administered Date(s) Administered ??? Influenza (whole) 08/10/2006, 06/28/2008, 07/02/2009 ??? Influenza H1N1 IM 09/25/2009 ? ? Influenza Vaccine =>1yo Quad Preservative Free IM 06/25/2014, 09/09/2015 ? ? Influenza Vaccine =>3yo Split IM 08/11/2010, 10/01/2011 ? ? Influenza Vaccine =>1yo Split Preservative Free IM 06/24/2012, 06/29/2013 ??? Pneumococcal Conj Vacc PCV13 IM 09/09/2015 ? ? Pneumococcal Polysaccharide Vaccine (PPSV23) =>1YO SQ/IM 08/10/2006 ??? Td 04/01/2000 ? ? Tdap Vaccine =>7YO IM 04/21/2010 Plan: Liset was seen today for annual exam and flu vaccine. Diagnoses and all orders for this visit: Routine physical examination Screening for HIV (human immunodeficiency virus) - HIV 1/2 Antibody (future); Future Need for influenza vaccination - [id number] - Influenza Vaccine =>1YO Quad Preservative Free IM Chronic pain syndrome - HYDROcodone-acetaminophen (NORCO) 5-325 mg tablet; Take 1-2 Tabs by mouth every 6 hours as neededfor up to 28 days for Pain. Earliest Fill Date: 09/03/16 Daily Max: 8 Tabs - HYDROcodone-acetaminophen (NORCO) 5-325 mg tablet; Take 1-2 Tabs by mouth every 6 hours as neededfor up to 28 days for Pain. Earliest Fill Date: 08/06/16 Daily Max: 8 Tabs - HYDROcodone-acetaminophen (NORCO) 5-325 mg tablet; Take 1-2 Tabs by mouth every 6 hours as neededfor up to 28 days for Pain. Earliest Fill Date: 07/09/16 Daily Max: 8 Tabs Stable Refill x 3 months Recheck next visit Unable to give urine today Tobacco dependence in remission - LOW DOSE CT LUNG CANCER SCREENING - Lipid Profile (Includes Cholesterol, Triglycerides, HDL, LDL) (future); Future Fatty liver - Comprehensive Metabolic Panel (CMP) (future); Future Impaired glucose tolerance - Hemoglobin A1c (future); Future Cervicalgia Chronic knee pain, unspecified laterality See chronic pain above Fibrous papule of nose - Amb Consult/Follow Up Dermatology Tinnitus, bilateral Discussed probably related to hearing loss, recheck next visit Patient Education Topic: as above Method: Verbal Taught to: Patient Barriers: None Outcomes: Verbalized understanding Return in 3 months (on 10/01/2016) for SERA. References: USPTF Level A & B Recommendations List USPTF Adult Recommendations USPTF Breast Cancer Screening USPTF Cervical Cancer Screening USPTF Colorectal Cancer Screening CDC Adult Immunizations 2010 CDC 7-18 Years Immunizations 2010 AAFP Clinical Recommendations * Lela De Santiago LPN - 07/01/2016 2050 EDT Flu vaccine administered as ordered per Dr. Munoz. See immunization record for details. Patient advised to wait 10 minutes after administration for observation of possible adverse reaction. Lela De Santiago LPN documented in this encounter Plan of Treatment Upcoming Encounters Date Type Department Care Team (Late st Contact Info) Description 06/29/2024 14:15 EDT Office Visit [facility] [address] [place] [address] Jean Munoz MD [address] [place] [address] Scheduled Referrals Name Type Priority Associated Diagnoses Order Schedule AMB CONS/FOLLOW UP DERMATOLOGY Outpatient Referral Routine Fibrous papule of nose Ordered: 07/01/2016 documented as of this encounter Results * COMPREHENSIVE METABOLIC PANEL (CMP) (07/01/2016 14:54 EDT) Potassium 4.2 3.5 - 5.0 mEq/L 07/01/2016 18:28 [facility] Sodium 144 136 - 145 mEq/L 07/01/2016 18:28 [facility] Chloride 108 96 - 110 mEq/L 07/01/2016 18:28 [facility] CO2 24 22 - 32 mEq/L 07/01/2016 18:28 [facility] Comment:Note new reference r dana 06/30/16 Total Alkaline Phosphatase 110 38 - 126 U/L 07/01/2016 18:28 [facility] Bilirubin, Total <0.5 <1.4 mg/dl 07/01/20 16 18:28 [facility] AST 15 15 - 46 U/L 07/01/2016 18:28 [facility] ALT 20 <53 U/L 07/01/2016 18:28 [facility] Albumin 4.4 3.4 - 4.9 g/dl 07/01/2016 18:28 [facility] Total Protein 7.7 6.3 - 8.2 g/dl 07/01/2016 18:28 [facility] Creatinine 0.73 0.52 - 1.04 mg/dl 07/01/2016 18:28 [facility] GFR, Calculated 92 >60 ml/min/1.7 3m2 07/01/2016 18:28 [facility] Comment: eGFR calculated using CKD-EPI equation for non Americans. Multiply eGFR by 1.16 for Americans. BUN 17 10 - 26 mg/dl 07/01/2016 18:28 EDT [facility] Calcium 9.6 8.5 - 10.5 mg/dl 07/01/2016 18:28 T [facility] Calculated Calcium 9.3 8.5 - 10.5 mg/dl 07/01/2016 18:28 T [facility] Comment: Note new formula for calculation in use 06/17/2016 Glucose, Serum 87 70 - 100 mg/dl 07/01/2016 18:28 [facility] Fasting? No 07/01/2016 14:54 T [facility] Blood specimen (specimen) BLOOD SPECIMEN / Unknown 07/01/2016 14:54 EDT 07/01/2016 17:43 EDT Jean Munoz MD CHEMISTRY & BLO OD GAS ORDERABLES Performing Organization Address [facility] Co de Phone Number [facility] [address] [place] [address] * HEMOGLOBIN A1C (07/01/2016 14:54 EDT) Hemoglobin A1C 5.9 % 07/02/2016 11:09 T [facility] Comment: Reference [...] Est Avg Glucose 123 mg/dl 6 11:09 EDT [facility] Comment: eAG represents the A1c result expressed as average glucose in mg/dl. Blood specimen (specimen) BLOOD SPECIMEN / Unknown 07/01/2016 14:54 EDT 07/01/2016 17:43 EDT Jean Munoz MD CHEMISTRY & BLO OD GAS ORDERABLES Performing Organization Address [facility] Co de Phone Number [facility] [address] [place] [address] * LIPID PROFILE (INCLUDES CHOLESTEROL, TRIGLYCERIDES, HDL, LDL) (07/01/2016 14:54 EDT) Cholesterol 242 mg/dl 07/01/2016 18:28 EDT [facility] Comment: Desirable:<200 Borderline High:200-239 High:>ph=386 Triglycerides 213 mg/dl 07/01/2016 18:28 [facility] Comment: Normal:<150 Borderline High:150-199 High:200-499 Very High:>tc=137 HDL 64 mg/dl 07/01/2016 18:28 [facility] Comment: Low:<40 Normal:40-60 Desirable: >60 LDL, Calculated 135 mg/dl 6 18:28 [facility] Comment: Optimal:<100 Near Optimal:100-129 Borderline High:130-159 High:160-189 Very High:>jz=045 Chol/HDL Ratio 3.8 07/01/2016 18:28 [facility] Fasting? No 07/01/2016 14:54 [facility] Non HDL Cholesterol 178 mg/dl 07/01/2016 18:28 [facility] Comment: Desirable:<130 Borderline:130-159 High: 160-189 Very High: >ml=214 Blood specimen (specimen) BLOOD SPECIMEN / Unknown 07/01/2016 14:54 EDT 07/01/2016 17:43 EDT Jean Munoz MD CHEMISTRY & BLO OD GAS ORDERABLES Performing Organization Address City/[facility]/ZIP Co de Phone Number [facility] [address] [place] [address] * HIV 1/2 ANTIBODY (07/01/2016 14:54 EDT) HIV 1/2 Antibody Negative 07/02/20 16 12:20 T [facility] Comment: If acute HIV-1 infection is suspected in a high risk patient, submit plasma specimen for HIV-1 RNA quantification test. Reference Range: ??Negative Assayed utilizing [employer] chemiluminescent technology. Blood specimen (specimen) BLOOD SPECIMEN / Unknown 07/01/2016 14:54 EDT 07/01/2016 17:43 EDT eJan Munoz MD IMMUNOLOGY AND SEROLOGY ORDERABLES Performing Organization Address City/State/[facility] Co de Phone Number [facility] [address] [place] [address] documented in this encounter Visit Diagnoses Diagnosis Routine physical examination- Primary Routine general medical examination at a health care facility Screening for HIV (human immunodeficiency virus) Special screening examination for other specified viral diseases Need for influenza vaccination Need for prophylactic vaccination and inoculation against influenza Chronic pain syndrome Tobacco dependence in remission Personal history of tobacco use, presenting hazards to health Fatty liver Other chronic nonalcoholic liver disease Impaired glucose tolerance Impaired glucose tolerance test Cervicalgia Chronic knee pain, unspecified laterality Fibrous papule of nose Benign neoplasm of skin of other and unspecified parts of face Tinnitus, bilateral Unspecified tinnitus Screening for osteoporosis- Primary Special screening for [...] 28 days for Pain. Earliest Fill Date: 04/16/16 Daily Max: 8 Tabs Reorder 04/16/2016 07/01/2016 HYDROcodone-acetaminophe n (NORCO) 5-325 mg tabletIndications:Chroni c pain syndrome,Chronic knee pain, unspecified laterality Take 1-2 Tabs by mouth every 6 hours as needed for up to 28 days for Pain. Earliest Fill Date: 05/14/16 Daily Max: 8 Tabs Reorder 05/14/2016 07/01/2016 HYDROcodone-acetaminophe n (NORCO) 5-325 mg tabletIndications:Chroni c pain syndrome,Chronic knee pain, unspecified laterality Take 1-2 Tabs by mouth every 6 hours as needed for up to 28 days for Pain. Earliest Fill Date: 06/11/16 Daily Max: 8 Tabs Reorder 06/11/2016 07/01/2016 documented as of this encounter Orders Immunization/Injection Count Last Ordered Date First Ordered Date INFLUENZA VACCINE =>1YO QUAD PRESERVATIVE FREE IM 1 07/01/2016 documented in this encounter Care Teams Lead Project Manager Relationship Specialty Start Date End Date Jean Munoz MD [address] [place] [phone] PCP - General 12/31/08 Manny Rizzo MD [address] [place] [phone] 04/20/10 documented as of this encounter
--- OUTSIDE RECORDS SUMMARY | 2024-06-10 07:22 | XMS_ITS | Encounter Summary ---
Author Organization [facility] Address [address] [place] [address] Care Team Providers Care Nonprofit Director Name Role Phone Jean Munoz MD Primary Care Provider Manny Rizzo MD Unavailable Reason for Visit * Reason Onset Date Comments Medications Refill 12/15/2016 Encounter Details Date Type Department Care Team (Late st Contact Info) Description 12/15/2016 Telephone [facility] Sleep [facility] - [address] [address] Tiana Bacon [address] [place] [address] Medications Refill Social History Tobacco [...] Fill Date: 12/17/16 30 Tab 12/17/2016 01/12/2017 methylphenidate (RITALIN;METHYLIN) 20 mg tablet Take 2 tabs by mouth in the morning. 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 * Telephone Encounter - Odilia Ochoa - 12/15/2016 1059 EDT Medication Refill Medication(s) Requested: RITALIN;METHYLIN 10 mg tablet & Ritalin 20mg tab Pharmacy (reconcile pharmacy list): [facility] Last Visit Date: 02.04.16 Next Visit Date: 01/27/2017 Is patient out of medication? No Picking up/mailing (location)/calling in/eprescribe? 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 30 Odilia Ochoa 12/15/201610:59 documented in this encounter Plan of Treatment Upcoming Encounters Date Type Department Care Team (Late st Contact Info) Description 06/29/2024 14:15 EDT Office Visit [facility] [address] [place] [address] Jean Munoz MD [address] [place] [phone] documented as of this encounter Visit Diagnoses Not on filedocumented in this encounter Discontinued Medications Medication Sig Discontinue Reason Start Date End Da te methylphenidate (RITALIN;METHYLIN) 20 mg tablet Take 2 tabs by mouth in the morning. Earliest Fill Date: 11/19/16 Reorder 11/19/2016 12/15/2016 methylphenidate (RITALIN;METHYLIN) 10 mg tablet Take one tab in the afternoon for narcolepsy. Earliest Fill Date: 11/19/16 Reorder 11/19/2016 12/15/2016 documented as of this encounter Care Teams Nonprofit Director Relationship Specialty Start Date End Date Jean Munoz MD [address] [place] [phone] PCP - General 12/31/08 Manny Rizzo MD [address] [place] [address] 04/20/10 documented as of this encounter
--- OUTSIDE RECORDS SUMMARY | 2024-06-10 07:22 | XMS_ITS | Encounter Summary ---
Author Organization [facility] Address [address] [place] [address] Care Team Providers Care Program Coordinator For Residence Life Name Role Phone Jean Munoz MD Primary Care Provider Manny Rizzo MD Unavailable Reason for Visit * Reason Onset Date Comments Medications Refill 10/20/2016 Encounter Details Date Type Department Care Team (Late st Contact Info) Description 10/20/2016 Telephone [facility] Sleep Program - [address] [id number] Tiana Bacon [address] [place] [address] Medications Refill Social History Tobacco [...] the afternoon for narcolepsy. Earliest Fill Date: 10/22/16 30 Tab 10/22/2016 11/17/2016 methylphenidate (RITALIN;METHYLIN) 20 mg tablet Take 2 tabs by mouth in the morning. Earliest Fill Date: 10/22/16 60 Tab 10/22/2016 11/17/2016 documented in this encounter Miscellaneous Notes * Telephone Encounter - Mariajose Cantor RN - 10/20/2016 1154 EST Spoke with patient and let her know her (ritalin ) prescription(s) ready for grape picker at the Sleep Program. * Addendum Note - Mariajose Cantor RN - 10/20/2016 1054 ESTAddended by: MARIAJOSE CANTOR on: 10/20/2016 10:54 Modules accepted: Orders * Telephone Encounter - Odilia Ochoa - 10/20/2016 1043 EST Medication Refill Medication(s) Requested: methylphenidate (RITALIN;METHYLIN) 10 mg tablet & methylphenidate (RITALIN;METHYLIN) 20 mg tablet Pharmacy (reconcile pharmacy list): [facility] Last Visit Date: ? Next Visit Date: Visit date not found Is patient out of medication? No, will be by this weekend Picking up/mailing (location)/calling in/eprescribe? human services supervisor, please call when ready 30 day supply/90 day supply? 30 Odilia Ochoa 10/20/201610:43 documented in this encounter Plan of Treatment Upcoming Encounters Date Type Department Care Team (Late st Contact Info) Description 06/29/2024 14:15 EDT Office Visit [facility] [address] [place] [address] Jean Munoz MD [address] [place] [phone] documented as of this encounter Visit Diagnoses Not on filedocumented in this encounter Discontinued Medications Medication Sig Discontinue Reason Start Date End Da te methylphenidate (RITALIN;METHYLIN) 20 mg tablet Take 2 tabs by mouth in the morning. Earliest Fill Date: 09/24/16 Reorder 09/24/2016 10/20/2016 methylphenidate (RITALIN;METHYLIN) 10 mg tablet Take one tab in the afternoon for narcolepsy. Earliest Fill Date: 09/24/16 Reorder 09/24/2016 10/20/2016 documented as of this encounter Care Teams Program Coordinator For Residence Life Relationship Specialty Start Date End Date Jean Munoz MD [address] [place] [phone] PCP - General 12/31/08 Manny Rizzo MD [facility] [place] [phone] 04/20/10 documented as of this encounter
--- OUTSIDE RECORDS SUMMARY | 2024-06-10 07:22 | XMS_ITS | Encounter Summary ---
Author Organization [facility] Address [address] [place] [address] Care Team Providers Care Community Nutrition Educator Name Role Phone Jean Munoz MD Primary Care Provider Manny Rizzo MD Unavailable Reason for Referral * Radiology Services (Routine/Next Available) - Closed Specialty Diagnoses / Procedures [facility] Referred To Contact Diagnoses Encounter for screening for lung cancer Procedures LOW DOSE CT LUNG CANCER ANNUAL SCREENING WO CONTRAST Jean Munoz MD [address] [place] [phone] Referral ID Status Reason Start Date Expiration Date Visits Re quested Visits Authorized [id number] Closed 12/23/2016 1 1 Reason for Visit * Reason Comments Chronic Pain Encounter Details Date Type Department Care Team (Latest Contact Info) Description 12/23/2016 11:30 EDT Office Visit [facility] [address] [place] [address] Jean Munoz MD [address] [place] [phone] Nausea and vomiting, intractability of vomiting not specified, unspecified vomiting type (Primary Dx); Diarrhea, unspecified type; Chronic pain syndrome; Cervicalgia; Chronic knee pain, unspecified laterality; Encounter for screening for lung cancer Discharge Disposition: Auto Discharge Social History Tobacco [...] Sign Reading Time Taken Comments Blood Pressure 130/76 12/23/2016 1138 EDT Pulse 72 12/23/2016 1138 EDT Temperature 36.8 ??C (98.3 ??F) 12/23/2016 1138 EDT Respiratory Rate 17 12/23/2016 1138 EDT Oxygen Saturation - - Inhaled Oxygen Concentration - - Weight 86.6 kg (191 lb) 12/23/2016 1138 EDT Height 162.6 cm (5' 4.02) 12/23/2016 1138 EDT Body Mass Index 32.77 12/23/2016 1138 EDT documented in this encounter Functional Status [...] as of this encounter Discharge Diagnoses Diagnosis R11.2 Nausea with vomiting, unspecified-R11.2[ICD-10-CM] R19.7 Diarrhea, unspecified-R19.7[ICD-10-CM] G89.4 Chronic pain syndrome-G89.4[ICD-10-CM] M54.2 Cervicalgia-M54.2[ICD-10-CM] M25.569 Pain in unspecified knee-M25.569[ICD-10-CM] Z12.2 Encounter for screening for malignant neoplasm of respiratory organs-Z12.2[ICD-10-CM] G89.29 Other chronic pain-G89.29[ICD-10-CM] documented in this encounter Ordered Prescriptions Prescription Sig Dispensed Refills Start Date End Da te promethazine (PHENERGAN) 25 mg tabletIndications:Nausea and vomiting, intractability of vomiting not specified, unspecified vomiting type Take 1 Tab by mouth every 6 hours as needed for Nausea. 20 Tab 1 12/23/2016 06/01/2017 HYDROcodone-acetaminophen (NORCO) 5-325 mg tabletIndications:Chronic pain syndrome Take 1-2 Tabs by mouth every 6 hours as needed for up to 28 days for Pain. Earliest Fill Date: 12/23/16 Daily Max: 8 Tabs 112 Tab 12/24/2016 01/04/2017 HYDROcodone-acetaminophen (NORCO) 5-325 mg tabletIndications:Chronic pain syndrome Take 1-2 Tabs by mouth every 6 hours as needed for up to 28 days for Pain. Earliest Fill Date: 01/21/17 Daily Max: 8 Tabs 112 Tab 01/21/2017 01/04/2017 HYDROcodone-acetaminophen (NORCO) 5-325 mg tabletIndications:Chronic pain syndrome Take 1-2 Tabs by mouth every 6 hours as needed for up to 12 days for Pain. Earliest Fill Date: 02/18/17 Daily Max: 8 Tabs 112 Tab 02/18/2017 03/04/2017 documented in this encounter Discharge Disposition Disposition Code Departure Means Destination Auto Discharge documented in this encounter Progress Notes * Jean Munoz MD - 12/23/2016 1130 EDT Subjective: Patient ID: Liset Viera is an 55 y.o. female. Chief Complaint Patient presents with ??? Chronic Pain HPI Here for scheduled follow up of chronic pain but has new problem Nausea, vomiting daily since last Better if does not eat Diarrhea, up to 3-4 times, no blood Sometimes abdominal pain Sharp RLQ side, intermittent, not persistent, not worse Duration up to hours Fever off and on, chills, not sweats Appetite not good No dysphagia No dysuria, hematuria No back or flank pain Also headache Using Zofran 2 tabs prn and Imodium CPS Stable Opioid Functional Assessment Analgesia: What is your average pain level? 5 What has been your worst pain level? 9 Are you getting enough pain relief to make a difference in your functioning? Yes ADLs (physical and psychological functioning): How is your physical ability? stable How are family/social relationships? stable Affect: How is your mood? stable How is your sleep? is unchanged Adverse effects: Have you noted any side effects of you pain medication? No Aberrant Behavior: Aberrant drug-related behavior noted? No Active problem list, past medical history, past [...] rarely ROS - See HPI Objective: BP 130/76 (BP Cuff Location: Left arm) Pulse 72 Temp 36.8 ??C (98.3 ??F) (Tympanic) Resp 17 Ht 162.6 cm (64.02) Wt 86.6 kg (191 lb) LMP 01/11/1987 BMI 32.77 kg/m2 Physical Exam Alert, mildly uncomfortable No scleral icterus or jaundice Abdomen normal BS, soft, non distended, mild tenderness bilateral lower quadrants, no rebound or guarding Pelvic/rectal deferred Assessment: Plan: Liset was seen today for chronic pain. Diagnoses and all orders for this visit: Nausea and vomiting, intractability of vomiting not specified, unspecified vomiting type - POCT Urine Dipstick - Hemagram & Differential (future); Future - Comprehensive Metabolic Panel (CMP) (future); Future - ESR; Future - promethazine (PHENERGAN) 25 mg tablet; Take 1 Tab by mouth every 6 hours as needed for Nausea. Suspect nausea/vomiting due to GI illness, perhaps viral or bacterial gastroenteritis Concurrent diarrhea would be consistent with this However reprors RLQ pain, had bilateral lower abdominal tenderness on exam DDx appy, ovarian cyst, diverticulitis Will get labs as above, consider US/CT Go to ED if worse She states Zofran 2 tabs ineffective, will try Phenergan Diarrhea, unspecified type As above, Imodium prn pending workup May need stool for culture if symptoms persist (?O+P, giardia, C Diff) Chronic pain syndrome - Drug Screen 6 - Drug Screen, Opiate Confirmation, Urine - HYDROcodone-acetaminophen (NORCO) 5-325 mg tablet; Take 1-2 Tabs by mouth every 6 hours as neededfor up to 12 days for Pain. Earliest Fill Date: 02/18/17 Daily Max: 8 Tabs - HYDROcodone-acetaminophen (NORCO) 5-325 mg tablet; Take 1-2 Tabs by mouth every 6 hours as neededfor up to 28 days for Pain. Earliest Fill Date: 01/21/17 Daily Max: 8 Tabs - HYDROcodone-acetaminophen (NORCO) 5-325 mg tablet; Take 1-2 Tabs by mouth every 6 hours as neededfor up to 28 days for Pain. Earliest Fill Date: 12/23/16 Daily Max: 8 Tabs Seems stable Cervicalgia Chronic knee pain, unspecified laterality CPS as above Encounter for screening for lung cancer - LOW DOSE CT LUNG CANCER ANNUAL SCREENING WO CONTRAST Discussed risks and benefits of screening Patient Education Topic: as above Method: Verbal Taught to: Patient Barriers: None Outcomes: Verbalized understanding Recheck in February * Radha Issa LPN - 12/23/2016 1130 EDT POCT urine dipstick performed as ordered per Dr. Munoz. Results for orders placed or performed in visit on 12/23/16 POCT URINE DIPSTICK Result Value Ref Range Color YELLOW Clarity, UA Clear Glucose Neg Neg Bilirubin 1+ (A) Neg Ketones Neg Neg Specific [place] 1.025 1.001 - 1.035 Blood Neg Neg pH 6.0 4.6 - 8.0 Protein Trace (A) Neg Urobilinogen 0.2 0.2 - 1.0 E.U./dl Nitrite Neg Neg Leuk Esterase Neg Neg Tech ID [id number] Radha Issa LPN 12/23/2016 12:41 documented in this encounter Plan of Treatment Upcoming Encounters Date Type Department Care Team (Late st Contact Info) Description 06/29/2024 14:15 EDT Office Visit [facility] [address] [place], [place] [phone] Jean Munoz MD [address] [place] [phone] documented as of this encounter Procedures Procedure Name Priority Date/Time Associated Diagnosis Comments CT LOW DOSE LUNG CANCER ANNUAL SCREENING WO CONTRAST Routine 01/13/2017 14:55 EDT Encounter for screening for lung cancer POCT URINE DIPSTICK, CLINITEK Routine 12/23/2016 12:20 EDT Nausea and vomiting, intractability of vomiting not specified, unspecified vomiting type DRUG SCREEN 6 Routine 12/23/2016 12:06 EDT Chronic pain syndrome OPIATE PANEL CONFIRMATION Routine 12/23/2016 12:06 EDT Chronic pain syndrome documented in this encounter Results * LOW DOSE CT LUNG CANCER ANNUAL SCREENING WO CONTRAST (01/13/2017 14:55 EDT) Anatomical Region Laterality Modality Other 01/13/2017 14:5 5 EDT 01/13/2017 16:11 EDT Narrative 01/13/2017 16:[address] LUNG CANCER SCREENING ANNUAL ??01/13/2017 2:55 PM Clinical History/Comments: Z12.2-Encounter for screening for malignant neoplasm of respiratory [id number]; TOBACCO USE Technique: A single breath-hold helical CT acquisition [...] on a dedicated PACS workstation for analysis. Comparison: CT chest 02/12/2014. Findings: Lung Screening Specific (LungRADS) findings: *No nodules Potentially Significant Incidentals (LungRADS Category S): None Pulmonary Incidentals: Reticulations and to a lesser extent regions of patchy groundglass opacities are evident within the mid and lower portions of the lungs, likely smoking related inflammatory changes and/or fibrosis. Mild large airways thickening and a background of moderate to severe centrilobular and paraseptal emphysema with a typical upper lobe predominance. Other incidentals: Patient status post hiatal hernia repair. Status post anterior fixation of the lower cervical spine. ACR Reportable Incidentals: ??None Impression: 1. LungRADS category 1 (Negative) ??Findings: ??No nodules or definitely benign nodules (calcified granulomas). 2. LungRADS category S: ??Negative, no new or potentially significant incidental findings requiring urgent additional evaluation. 3. Incidental findings as above. RECOMMENDATIONS: ??Routine low dose CT lung screening. ??Suggest next low dose CT exam or follow up on or around 12 months from today. This report utilizes the CT Lung Screening [...] significant ancillary finding requiring urgent additional evaluation. Jean Munoz MD IMG CT ORDERABL ES * SED. RATE:HILARYREN (12/23/2016 12:28 EDT) Sed. Rate Westergren 6 0 - 30 mm/hr 12/23/2016 16:23 EDT [facility] Blood specimen (specimen) BLOOD SPECIMEN / Unknown 12/23/2016 12:28 EDT 12/23/2016 15:49 EDT Jean Munoz MD HEMATOLOGY & PF 4 ORDERABLES Performing Organization Address City/State/[facility] Co de Phone Number [facility] [address] [place] [address] * (ABNORMAL) COMPREHENSIVE METABOLIC PANEL (CMP) (12/23/2016 12:28 EDT) Pathologist [facility] Potassium 3.7 3.5 - 5.0 mEq/L 12/23/2016 16:47 [facility] Sodium 145 136 - 145 mEq/L 12/23/2016 16:47 [facility] Chloride 107 96 - 110 mEq/L 12/23/2016 16:47 [facility] CO2 25 22 - 32 mEq/L 12/23/2016 16:47 [facility] Total Alkaline Phosphatase 116 38 - 126 U/L 12/23/2016 16:47 [facility] Bilirubin, Total <0.5 <1.4 mg/dl 12/24/19 17 16:47 [facility] AST 15 15 - 46 U/L 12/23/2016 16:47 [facility] ALT 23 <53 U/L 12/23/2016 16:47 [facility] Albumin 4.4 3.4 - 4.9 g/dl 12/23/2016 16:47 [facility] Total Protein 7.0 6.3 - 8.2 g/dl 12/23/2016 16:47 [facility] Creatinine 0.65 0.52 - 1.04 mg/dl 12/23/2016 16:47 [facility] GFR, Calculated 99 >60 ml/min/1.7 3m2 12/23/2016 16:47 [facility] Comment: eGFR calculated using CKD-EPI equation for non Americans. Multiply eGFR by 1.16 for Americans. BUN 13 10 - 26 mg/dl 12/23/2016 16:47 [facility] Calcium 9.5 8.5 - 10.5 mg/dl 12/23/2016 16:47 [facility] Calculated Calcium 9.2 8.5 - 10.5 mg/dl 12/23/2016 16:47 [facility] Glucose, Serum 101(H) 70 - 100 mg/dl 12/23/2016 16:47 [facility] Fasting? No 12/23/2016 12:29 [facility] Blood specimen (specimen) BLOOD SPECIMEN / Unknown 12/23/2016 12:28 EDT 12/23/2016 15:49 EDT Jean Munoz MD CHEMISTRY & BLO OD GAS ORDERABLES [facility] [address] [place] [address] * HEMAGRAM AND DIFFERENTIAL (12/23/2016 12:28 EDT) WBC 7.86 4.0 - 12.4 K/cmm 12/23/2016 16:05 [facility] RBC 4.72 3.86 - 5.04 M/cmm 12/23/2016 16:05 [facility] Hemoglobin 14.7 11.6 - 15.2 gm/dl 12/23/2016 16:05 [facility] HCT 42.4 34.9 - 44.4 % 12/23/2016 16:05 [facility] MCV 90 81 - 98 fl 12/23/2016 16:05 [facility] MCH 31.1 26.7 - 33.3 pg 12/23/2016 16:05 [facility] MCHC 34.7 32.1 - 35.9 gm/dl 12/23/2016 16:05 [facility] RDW-CV 13.9 11.7 - 14.6 % 12/23/2016 16:05 [facility] RDW-SD 45.7 37.6 - 50.3 fl 12/23/2016 16:05 [facility] PLT 365 141 - 377 K/cmm 12/23/2016 16:05 [facility] MPV 10.5 9.5 - 12.7 fl 12/23/2016 16:05 [facility] % Neutrophils 57.5 % 12/23/2016 16:05 [facility] % Lymphocytes 32.3 % 12/23/2016 16:05 [facility] % Monocytes 6.5 % 12/23/2016 16:05 [facility] % Eosinophils 2.8 % 12/23/2016 16:05 [facility] % Basophils 0.6 % 12/23/2016 16:05 [facility] % Immature Grans 0.3 % 12/23/2016 16:05 [facility] ABS Neutrophils 4.52 2.20 - 8.85 K/cmm 12/23/2016 16:05 [facility] ABS Lymphs 2.54 1.09 - 3.30 K/cmm 12/23/2016 16:05 [facility] ABS Monocytes 0.51 0.1 - 0.8 K/cmm 12/23/2016 16:05 [facility] ABS Eosinophils 0.22 0.03 - 0.61 K/cmm 12/23/2016 16:05 [facility] ABS Basophils 0.05 0.01 - 0.11 K/cmm 12/23/2016 16:05 [facility] ABS Immature Grans 0.02 0 - 0.06 K/cmm 12/23/2016 16:05 [facility] Type of Diff: Automated 12/23/2016 16:05 T [facility] Blood specimen (specimen) BLOOD SPECIMEN / Unknown 12/23/2016 12:28 EDT 12/23/2016 15:49 EDT Jean Munoz MD PACKAGES & DNA PROBE ORDERABLES [facility] [address] [place] [address] * (ABNORMAL) POCT URINE DIPSTICK (12/23/2016 12:20 EDT) Color YELLOW 12/23/2016 12:22 [facility] Clarity, UA Clear 12/23/2016 12:22 [facility] Glucose Neg Neg 12/23/2016 12:22 [facility] Bilirubin 1+(A) Neg 12/23/2016 12:22 [facility] Ketones Neg Neg 12/23/2016 12:22 [facility] Specific [place] 1.025 1.001 - 1.035 12/23/2016 12:22 [facility] Blood Neg Neg 12/23/2016 12:22 [facility] pH 6.0 4.6 - 8.0 12/23/2016 12:22 [facility] Protein Trace(A) Neg 12/23/2016 12:22 [facility] Urobilinogen 0.2 0.2 - 1.0 E.U./dl 12/23/2016 12:22 [facility] Nitrite Neg Neg 12/23/2016 12:22 [facility] Leuk Esterase Neg Neg 12/23/2016 12:22 [facility] saturator ID [id number] 12/23/2016 12:22 [facility] Comment:Test performed at [facility] Urine specimen (specimen) URINE / Unknown 12/23/2016 12:20 EDT 12/23/2016 12:22 EDT Jean Munoz MD POINT OF CARE T EST ORDERABLES Performing Organization Address [facility] Co de Phone Number [facility] [address] [place] [address] * OPIATE CONFIRMATION, URINE (12/23/2016 12:06 EDT) Codeine NEGATIVE <50 ng/mL 12/28/2016 13:19 EDT [facility] Hydrocodone NEGATIVE <50 ng/mL 12/28/2016 13:19 EDT [facility] Hydromorphone NEGATIVE <50 ng/mL 12/28/2016 13:19 EDT [facility] Morphine NEGATIVE <50 ng/mL 12/28/2016 13:19 EDT [facility] Oxycodone NEGATIVE <50 ng/mL 12/28/2016 13:19 EDT [facility] Oxymorphone NEGATIVE <50 ng/mL 12/28/2016 13:19 EDT [facility] Comment: Performed by: [facility], [address] [place] [address], [place]: Sho Ellis MD Urine specimen (specimen) URINE / Unknown 12/23/2016 12:06 EDT 12/23/2016 17:34 EDT Jean Munoz MD URINALYSIS ORDE RABLES Performing Organization Address [facility] Co de Phone Number [facility] [address] [place] [address] * DRUG SCREEN 6 (12/23/2016 12:06 EDT) Amphetamine Screen, Urine Negative screen. 12/23/2016 21:06 EDT [facility] Comment: Confirmation testing available upon request. Suitable for medical purposes only. Will not detect all drugs within class. Cutoff = 1000 ng/ml Specimen type is urine. Barbiturate Screen, Urine Negative screen. 12/23/2016 21:06 EDT [facility] Comment: Confirmation testing available upon request. Suitable for medical purposes only. Will not detect all drugs within class. Cutoff = 300 ng/ml Specimen type is urine. Benzodiazepine Screen, Urine Presumptive positive, interpret with caution. 12/23/2016 21:06 EDT [facility] Comment: Confirmation testing available upon request. Suitable for medical purposes only. Will not detect all drugs within class. Assay less sensitive to Lorazepam and metabolites. Cutoff = 200 ng/ml Specimen type is urine. Cannabinoid Scrn, Ur Presumptive positive, interpret with caution. 12/23/2016 21:06 EDT [facility] Comment: Confirmation testing available upon request. Suitable for medical purposes only. Will not detect all drugs within class. Cutoff = 50 ng/ml Specimen type is urine. Opiate Scrn, Ur Negative screen. 12/23/2016 21:06 EDT [facility] Comment: Confirmation testing available upon request. Suitable for medical purposes only. Will not detect all drugs within class. Cutoff = 300 ng/ml Assay less sensitive to oxycodone and metabolites. Assay does not detect methadone. Specimen type is urine. Cocaine Metabolites, Ur Negative screen. 12/23/2016 21:06 EDT [facility] Comment: Confirmation testing available upon request. Suitable for medical purposes only. Will not detect all drugs within class. Cutoff = 300 ng/ml Specimen type is urine. Urine specimen (specimen) URINE / Unknown 12/23/2016 12:06 EDT 12/23/2016 17:34 EDT Jean Munoz MD URINALYSIS [place] [facility] Organization Address City/State/[facility] Co de Phone Number [facility] [address] [place] [address] documented in this encounter Visit Diagnoses Diagnosis Nausea and vomiting, intractability of vomiting not specified, unspecified vomiting type- Primary Diarrhea, unspecified type Chronic pain syndrome Cervicalgia Chronic knee pain, unspecified laterality Encounter for screening for lung cancer Screening [...] Fill Date: 11/26/16 Daily Max: 8 Tabs Reorder 11/26/2016 12/23/2016 HYDROcodone-acetaminophe n (NORCO) 5-325 mg tabletIndications:Chroni c pain syndrome,Chronic knee pain, unspecified laterality Take 1-2 Tabs by mouth every 6 hours as needed for up to 28 days for Pain. Earliest Fill Date: 10/29/16 Daily Max: 8 Tabs Reorder 10/29/2016 12/23/2016 HYDROcodone-acetaminophe n (NORCO) 5-325 mg tabletIndications:Chroni c pain syndrome,Chronic knee pain, unspecified laterality Take 1-2 Tabs by mouth every 6 hours as needed for up to 28 days for Pain. Earliest Fill Date: 10/01/16 Daily Max: 8 Tabs Reorder 10/01/2016 12/23/2016 documented as of this encounter Care Teams Community Nutrition Educator Relationship Specialty Start Date End Date Jean Munoz MD [address] [place] [phone] PCP - General 12/31/08 Manny Rizzo MD [address] [place] [phone] 04/20/10 documented as of this encounter
--- OUTSIDE RECORDS SUMMARY | 2024-06-10 07:22 | XMS_ITS | Encounter Summary ---
Author Organization [facility] Address [address] [place] [address] Care Team Providers Care Welder Apprentice Arc Name Role Phone Jean Munoz MD Primary Care Provider Manny Rizzo MD Unavailable Reason for Visit * Reason Onset Date Comments Medications Refill 11/17/2016 Encounter Details Date Type Department Care Team (Late st Contact Info) Description 11/17/2016 Telephone [facility] Sleep Program - [address] [id number] Tiana Bacon [address] [place] [address] Medications Refill Social History Tobacco [...] afternoon for narcolepsy. Earliest Fill Date: 11/19/16 30 Tab 11/19/2016 12/15/2016 methylphenidate (RITALIN;METHYLIN) 20 mg tablet Take 2 tabs by mouth in the morning. Earliest Fill Date: 11/19/16 60 Tab 11/19/2016 12/15/2016 documented in this encounter Miscellaneous Notes * Telephone Encounter - Corrina Ac RN - 11/17/2016 1010 EST Called pt and let her know yearly appt sched for 01/27 with and (ritalin) prescriptionsready for flower buncher or picker. * Telephone Encounter - Barbara Gimenez - 11/17/2016 0930 EST Medication Refill Medication(s) Requested: Ritalin 20mg & Ritalin 10mg Pharmacy (reconcile pharmacy list): [place], [place] Last Visit Date: 02.04.16 Next Visit Date: Visit date not found Is patient out of medication? No Picking up/mailing (location)/calling in/eprescribe? PT to flower buncher or picker 30 day supply/90 day supply? 30 Barbara Gimenez 11/17/20169:30 documented in this encounter Plan of Treatment Upcoming Encounters Date Type Department Care Team (Late st Contact Info) Description 06/29/2024 14:15 EDT Office Visit [facility] [address] [place], [place] [phone] Jean Munoz MD [address] [place] [address] documented as of this encounter Visit Diagnoses Not on filedocumented in this encounter Discontinued Medications Medication Sig Discontinue Reason Start Date End Da te methylphenidate (RITALIN;METHYLIN) 20 mg tablet Take 2 tabs by mouth in the morning. Earliest Fill Date: 10/22/16 Reorder 10/22/2016 11/17/2016 methylphenidate (RITALIN;METHYLIN) 10 mg tablet Take one tab in the afternoon for narcolepsy. Earliest Fill Date: 10/22/16 Reorder 10/22/2016 11/17/2016 documented as of this encounter Care Teams Welder Apprentice Arc Relationship Specialty Start Date End Date Jean Munoz MD [address] [place] [address] PCP - General 12/31/08 Manny Rizzo MD [address] [place] [address] 04/20/10 documented as of this encounter
--- OUTSIDE RECORDS SUMMARY | 2024-06-10 07:23 | XMS_ITS | Encounter Summary ---
Author Organization [facility] Address [address] [place] [address] Care Team Providers Care Service Desk Specialist Name Role Phone Jean Munoz MD Primary Care Provider Manny Rizzo MD Unavailable Reason for Visit * Reason Onset Date Comments Medications Refill 12/27/2015 Encounter Details Date Type Department Care Team (Late st Contact Info) Description 12/27/2015 Refill [facility] [address] [place], [place] [phone] Jean Munoz MD [address] [place] [address] Medications Refill Social History Tobacco Use Types Packs/Day Years Used Date Smoking Tobacco: Former Cigarettes 2 35 0 10/14/1975 - 10/14/2010 Smokeless Tobacco: Never Alcohol Use Standard Drinks/Week [...] Sleep. 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 Earliest Fill Date: 12/27/15 Daily Max: 8 Tabs 112 Tab 0 12/27/2015 04/13/2016 documented in this encounter Miscellaneous Notes * Telephone Encounter - Jan Lott MD - 12/27/2015 [address] Munoz. [facility] * Telephone Encounter - Sapna Dominguez - 12/27/2015 1106 EDT Pt rec'd Rx's yesterday at her appt, but RL forgot to sign them. She brought the Rx's back today, but RL is not in the office till this afternoon. She came from [facility], so would like new Rx's printed to take with her. documented in this encounter Plan of Treatment Upcoming Encounters Date Type Department Care Team (Late st Contact Info) Description 06/29/2024 14:15 EDT Office Visit [facility] [address] [place], [place] [phone] Jean Munoz MD [address] [place] [address] documented as of this encounter Visit Diagnoses Diagnosis Chronic pain syndrome- Primary Cervicalgia Chronic knee pain, unspecified laterality Chronic back pain, unspecified back pain laterality, unspecified location Insomnia, unspecified type Screening for osteoporosis- Primary [...] syndrome,Cervicalgia,Chr onic knee pain, unspecified laterality,Chronic back pain, unspecified back pain laterality, unspecified location Take 1-2 Tabs by mouth every 6 hours as needed for up to 28 days for Pain. Earliest Fill Date: 12/27/15 Daily Max: 8 Tabs Reorder 12/27/2015 12/27/2015 HYDROcodone-acetaminophe n (NORCO) 5-325 mg tabletIndications:Chroni c pain syndrome,Cervicalgia,Chr onic knee pain, unspecified laterality,Chronic back pain, unspecified back pain laterality, unspecified location Take 1-2 Tabs by mouth every 6 hours as needed for up to 28 days for Pain. Earliest Fill Date: 01/24/16 Daily Max: 8 Tabs Reorder 01/24/2016 12/27/2015 zolpidem (AMBIEN) 5 mg tabletIndications:Insomn ia, unspecified type Take 1 Tab by mouth at bedtime as needed for Sleep. Daily Max: 5 mg Reorder 12/26/2015 12/27/2015 documented as of this encounter Care Teams Service Desk Specialist Relationship Specialty Start Date End Date Jean Munoz MD [address] [place] [phone] PCP - General 12/31/08 Manny Rizzo MD [address] [place] [phone] 04/20/10 documented as of this encounter
--- OUTSIDE RECORDS SUMMARY | 2024-06-10 07:23 | XMS_ITS | Encounter Summary ---
Author Organization [facility] Address [address] [place] [address] Care Team Providers Care Instrument Repair Supervisor Name Role Phone Jean Munoz MD Primary Care Provider Manny Rizzo MD Unavailable Reason for Visit * Reason Onset Date Comments Prior Auth, Medication 06/15/2016 Daliresp 500MCG Encounter Details Date Type Department Care Team (Late st Contact Info) Description 06/15/[address] [address] Kaitlyn Montero LPN [address] [place] [address] Prior Auth, Medication (Daliresp 500MCG ) Social History Tobacco Use Types Packs/Day [...] Telephone Encounter - Kaitlyn Montero LPN - 06/16/2016 1406 EDT Medication: Daliresp Tab 500MCG Insurance Co: [place] Medicaid Approval # (if applicable): [id number] Approval dates: 06/15/2016-06/15/2017 Name of Pharmacy notified: [facility] Called pharmacy to notify pharmacist of PA approval. Per pharmacist he will call the patient when prescription is ready. * Telephone Encounter - Kaitlyn Montero LPN - 06/15/2016 1117 EDT PA sent to insurance. Waiting for response. documented in this encounter Plan of Treatment Upcoming Encounters Date Type Department Care Team (Late st Contact Info) Description 06/29/2024 14:15 EDT Office Visit [facility] [address] [place] [address] Jean Munoz MD [address] [place] [phone] documented as of this encounter Visit Diagnoses Not on filedocumented in this encounter Care Teams Instrument Repair Supervisor Relationship Specialty Start Date End Date Jean Munoz MD [address] [place] [phone] PCP - General 12/31/08 Manny Rizzo MD [address] [place] [phone] 04/20/10 documented as of this encounter
--- OUTSIDE RECORDS SUMMARY | 2024-06-10 07:23 | XMS_ITS | Encounter Summary ---
Author Organization [facility] Address [address] [place] [address] Care Team Providers Care Track Layer Name Role Phone Jean Munoz MD Primary Care Provider Manny Rizzo MD Unavailable Reason for Visit * Reason Onset Date Comments Medications Refill 12/16/2015 Encounter Details Date Type Department Care Team (Late st Contact Info) Description 12/16/2015 Refill [facility] Sleep Program - [address] [phone] Tiana Bacon [address] [place] [phone] Medications Refill Social History Tobacco Use [...] Take one tab in the afternoon for narcolepsy Earliest Fill Date: 12/16/15 30 Tab 0 12/16/2015 01/13/2016 methylphenidate (RITALIN;METHYLIN) 20 mg tablet Take 2 tabs by mouth in the morning. 60 Tab 0 12/16/2015 01/13/2016 documented in this encounter Miscellaneous Notes * Telephone Encounter - Corrina Ac RN - 12/16/2015 0823 EDT Spoke with patient and let her know her ( ritalin) prescriptions ready for picker/puller at the Sleep Program. Reminded her of yearly FUR 02/03 at 8:40am. * Telephone Encounter - Barbara Gimenez - 12/16/2015 0817 EDT PT needs refill on Ritalin 10mg and Ritalin 20mg; PT will picker/puller at front office specialist. documented in this encounter Plan of Treatment Upcoming Encounters Date Type Department Care Team (Late st Contact Info) Description 06/29/2024 14:15 EDT Office Visit [facility] [address] [place], [place] [phone] Jean Munoz MD [address] [place] [phone] documented as of this encounter Visit Diagnoses Not on filedocumented in this encounter Discontinued Medications Medication Sig Discontinue Reason Start Date End Da te methylphenidate (RITALIN;METHYLIN) 20 mg tablet Take 2 tabs by mouth in the morning. Reorder 11/18/2015 12/16/2015 methylphenidate (RITALIN;METHYLIN) 10 mg tablet Take one tab in the afternoon for narcolepsy Reorder 11/18/2015 12/16/2015 documented as of this encounter Care Teams Track Layer Relationship Specialty Start Date End Date Jean Munoz MD [address] [place] [phone] PCP - General 12/31/08 Manny Rizzo MD [address] [place] [phone] 04/20/10 documented as of this encounter
--- OUTSIDE RECORDS SUMMARY | 2024-06-10 07:23 | XMS_ITS | Encounter Summary ---
Author Organization [facility] Address [address] [place] [address] Care Team Providers Care Track Patrol Name Role Phone Jean Munoz MD Primary Care Provider Manny Rizzo MD Unavailable Reason for Visit * Reason Onset Date Comments Appointment Related 01/16/2016 Encounter Details Date Type Department Care Team (Late st Contact Info) Description 01/16/[address], [facility] [address] [place], [place] [phone] Cht, Admin Appointment Related Social History Tobacco Use Types [...] encounter Miscellaneous Notes * Telephone Encounter - Jennifer Brink - 01/16/2016 0925 EDT Pt is sched w/ Claudia Pro on 01.31.16 at 11am at [facility]. documented in this encounter Plan of Treatment Upcoming Encounters Date Type Department Care Team (Late st Contact Info) Description 06/29/2024 14:15 EDT Office Visit [facility] [address] [place], [place] [phone] Jean Munoz MD [address] [place] [phone] documented as of this encounter Visit Diagnoses Not on filedocumented in this encounter Care Teams Track Patrol Relationship Specialty Start Date End Date Jean Munoz MD [address] [place] [phone] PCP - General 12/31/08 Manny Rizzo MD [address] [place] [address] 04/20/10 documented as of this encounter
--- OUTSIDE RECORDS SUMMARY | 2024-06-10 07:23 | XMS_ITS | Encounter Summary ---
Author Organization [facility] Address [address] [place] [address] Care Team Providers Care Memorial Adviser Name Role Phone Jean Munoz MD Primary Care Provider Manny Rizzo MD Unavailable Reason for Visit * Reason Onset Date Comments Prior Auth, Medication 04/14/2016 Jesusita, Nasonex Encounter Details Date Type Department Care Team (Late st Contact Info) Description 04/14/[address] [address] Kaitlyn Montero LPN [address] [place] [address] Prior Auth, Medication (Jesusita, Nasonex ) Social History Tobacco Use Types Packs/Day [...] Date End Da te Ciclesonide 50 mcg spray,non-aerosolIndicatio ns:Seasonal allergic rhinitis 100 mcg by nasal route daily. 37.5 g 1 05/08/2016 06/01/2017 documented in this encounter Miscellaneous Notes * Telephone Encounter - Kaitlyn Montero LPN - 05/14/2016 1416 EDT Called patient and left message about new prescription for Omnaris. * Telephone Encounter - Jean Munoz MD - 05/08/2016 1501 EDT escript done * Telephone Encounter - Kavita Adames - 05/06/2016 1708 EDT Pt returning call. States she has not tried Omnaris or Zetonna. I let her know you would call back with next steps. * Telephone Encounter - Kaitlyn Montero LPN - 05/06/2016 1422 EDT Called patient about PA denial and left a message to have patient call back. Per [place] medicaid patient needs to try and fail two preferred nasal sprays. Called patient to see if she has tried either Omnaris or Zetonna which are [place] medicaid preferred nasal sprays. * Telephone Encounter - Cat Armijo - 05/06/2016 1104 EDT Patient called. Tried flonase in the past and doesn't want to go back to that. Told patient that the Nasonex was denied. * Telephone Encounter - Kaitlyn Montero LPN - 04/28/2016 1414 EDT Unable to reach patient, Letter sent regarding PA denial. * Telephone Encounter - Kaitlyn Montero LPN - 04/21/2016 1447 EDT Called patient regarding PA denial for Nasonex spray. Called patient to see if she will switch to the preferred medication (flonase). Left message to call back. * Telephone Encounter - Kaitlyn Montero LPN - 04/16/2016 1348 EDT Medication: Nasonex SPR 50mcg/AC Insurance Co.: [place] Medicaid Formulary alternatives needed to try and fail: Patient must have a documented side effect, allergy,or treatment failure to two preferred nasal glucocorticoids (Preferred options include Fluticasone,Omnaris and Zetonna) * Telephone Encounter - Kaitlyn Montero LPN - 04/16/2016 1327 EDT Medication: Fexofenadine 180 mg Insurance Co: [place] Medicaid Approval # (if applicable): [id number] Approval dates: 04/15/2016 to 04/15/2017 Name of Pharmacy notified: [facility] * Telephone Encounter - Kaitlyn Montero LPN - 04/15/2016 1602 EDT PA sent to insurance for Nasonex. Waiting for response. * Telephone Encounter - Kaitlyn Montero LPN - 04/14/2016 1524 EDT PA sent to insurance. Waiting for response. documented in this encounter Plan of Treatment Upcoming Encounters Date Type Department Care Team (Late st Contact Info) Description 06/29/2024 14:15 EDT Office Visit [facility] [address] [place] [address] Jean Munoz MD [address] [place] [phone] documented as of this encounter Visit Diagnoses Diagnosis Seasonal allergic rhinitis- Primary Allergic rhinitis, cause unspecified Screening for osteoporosis- Primary Special screening [...] Discontinue Reason Start Date End Da te mometasone (NASONEX) 50 mcg/actuation nasal sprayIndications:Seaso nal allergic rhinitis Instill 2 Sprays into both nostrils daily. Insurance does not cover 04/13/2016 05/08/2016 documented as of this encounter Care Teams Memorial Adviser Relationship Specialty Start Date End Date Jean Munoz MD [address] [place] [phone] PCP - General 12/31/08 Manny Rizzo MD [address] [place] [phone] 04/20/10 documented as of this encounter
--- OUTSIDE RECORDS SUMMARY | 2024-06-10 07:23 | XMS_ITS | Encounter Summary ---
Author Organization [facility] Address [address] [place] [address] Care Team Providers Care Glass Maker Name Role Phone Jean Munoz MD Primary Care Provider Manny Rizzo MD Unavailable Reason for Visit * Reason Comments Chronic Pain Encounter Details Date Type Department Care Team (Late st Contact Info) Description 02/20/2016 11:30 EDT Office Visit [facility] [address] [place], [place] [phone] Jean Munoz MD [address] [place] [phone] Chronic pain syndrome (Primary Dx); Chronic back pain, unspecified back pain laterality, unspecified location; Chronic knee pain, unspecified laterality; Insomnia, unspecified type Discharge Disposition: Auto Discharge Social History Tobacco [...] Sign Reading Time Taken Comments Blood Pressure 118/76 02/20/2016 1145 EDT Pulse 72 02/20/2016 1145 EDT Temperature 36.7 ??C (98.1 ??F) 02/20/2016 1145 EDT Respiratory Rate 16 02/20/2016 1145 EDT Oxygen Saturation - - Inhaled Oxygen Concentration - - Weight 89.4 kg (197 lb) 02/20/2016 1145 EDT Height 162.6 cm (5' 4) 02/20/2016 1145 EDT Body Mass Index 33.81 02/20/2016 1145 EDT documented in this encounter Functional Status [...] Discharge Diagnoses Diagnosis G89.4 Chronic pain syndrome-G89.4[ICD-10-CM] G47.00 Insomnia, unspecified-G47.00[ICD-10-CM] M54.9 Dorsalgia, unspecified-M54.9[ICD-10-CM] M25.569 Pain in unspecified knee-M25.569[ICD-10-CM] G89.29 Other chronic pain-G89.29[ICD-10-CM] documented in this encounter Ordered Prescriptions Prescription Sig Dispensed Refills Start Date End Da te HYDROcodone-acetaminophen (NORCO) 5-325 mg tabletIndications:Chronic pain syndrome,Chronic knee pain, unspecified laterality,Chronic back pain, unspecified back pain laterality, unspecified location Take 1-2 Tabs by mouth every 6 hours as needed for up to 28 days for Pain. Earliest Fill Date: 02/20/16 Daily Max: 8 Tabs 112 Tab 0 02/20/2016 04/13/2016 HYDROcodone-acetaminophen (NORCO) 5-325 mg tabletIndications:Chronic pain syndrome,Chronic knee pain, unspecified laterality,Chronic back pain, unspecified back pain laterality, unspecified location Take 1-2 Tabs by mouth every 6 hours as needed for up to 28 days for Pain. Earliest Fill Date: 03/19/16 Daily Max: 8 Tabs 112 Tab 0 03/19/2016 04/13/2016 documented in this encounter Discharge Disposition Disposition Code Departure Means Destination Auto Discharge documented in this encounter Progress Notes * Jean Munoz MD - 02/20/2016 1333 EDT Subjective: Patient ID: Liset Viera is an 55 y.o. female. Chief Complaint Patient presents with ??? Chronic Pain HPI Here for F/U chronic pain syndrome Doing well Taking Hydrocodone 2/day Needs Rx Also Ambien for insomnia Leaving this afternoon for wedding this weekend in [place] Recently moved from [facility] to [place] Patient Active Problem List Diagnosis ??? Severe [...] granuloma of eyelid ??? Other disorders of eyelid(374.89) ??? Fibromyalgia ??? Laceration of right hand Past Medical History Diagnosis Date ??? UTI 11/20/99 ??? Pharyngitis 02/10/00 ??? Vaginitis 03/03/00 ??? URI (upper respiratory infection) 08/04/00 ??? Shoulder pain 01/11/01 ??? Conjunctivitis 08/24/01 ??? Sinusitis 10/10/01 ??? Bronchitis 10/10/01 ??? Glucosuria 05/01/03 ??? Pelvic pain in female 10/24/03 08/15/08 CT left adnexal mass, 08/23/08 U/S ?left ov cyst/mass, 10/01/08 MRI no masst ??? Urinary frequency 12/11/03 ??? Malaise and fatigue 12/11/03 ??? Chest pain 12/11/03 12/20/03 CL=ETT neg ??? Hip pain 01/11/04 ?trochanteric bursitis ??? Constipation 03/18/04 ??? Otalgia 03/18/04 ??? Abdominal pain 07/27/04 ??? Fever, unspecified 08/26/04 ??? Gastroenteritis 09/15/04 ??? Knee pain 10/03/04 ??? Retrocalcaneal bursitis (back of heel) 11/25/01 ??? Dermatophytosis 03/23/05 ??? Achilles tendonitis 12/04/05 ??? Pneumonia 04/07/06 ??? Urinary retention 06/28/08 ??? Nausea 01/10/09 ??? Hypotension 02/07/09 ??? Right knee pain 04/19/09 Ortho consult E [place]ot[place], MRI ? Mensicus tear, recommend PT ??? Neuralgia, neuritis, and radiculitis, unspecified 11/06/09 ??? Brachial neuritis or radiculitis NOS 11/06/09 ??? Laceration 12/26/09 ??? Dizziness 12/26/09 ??? Pneumonia 04/05/2012 ??? Abscess of face 09/21/2010 ??? Atypical pneumonia 04/05/2012 ??? Edema of leg 12/31/2009 ??? Fracture of right ankle 03/30/2010 ??? Pneumonia 02/26/2013 Current Outpatient Prescriptions on File Prior to Visit Medication Sig Dispense Refill ??? baclofen (LIORESAL) 10 mg tablet Take 1 Tab by mouth 3 times daily as needed (mucles tightness)180 Tab 3 ??? cycloSPORINE (RESTASIS) 0.05 % ophthalmic emulsion Place 1 Drop into both eyes 2 times daily ??? cycloSPORINE (RESTASIS) 0.05 % ophthalmic emulsion Place 1 Drop into both eyes 2 times daily. 2Tray 11 ??? docusate sodium (COLACE) 100 mg capsule Take 1 Cap by mouth 2 times daily as needed for Constipation. ??? doxycycline (VIBRA-TABS) 100 mg tablet Take 1 tablet by mouth every day 30 Tab 0 ??? fexofenadine (JUDITH) 180 mg tablet Take 1 Tab by mouth daily 90 Tab 1 ??? fluticasone-salmeterol (ADVAIR HFA) 230-21 mcg/actuation inhaler [...] nebulization every 4 hours as needed for Wheezing 3 mL 3 ??? levalbuterol (XOPENEX HFA) 45 mcg/actuation inhaler INHALE TWO PUFFS BY MOUTH EVERY SIX HOURS NEEDED 45 g 2 ??? methylphenidate (RITALIN;METHYLIN) 20 mg tablet Take 2 tabs by mouth in the morning. Fill for February 13, 2016 60 Tab 0 ??? methylphenidate (RITALIN;METHYLIN) 10 mg tablet Take one tab in the afternoon for narcolepsy, Fill for February 13, 2016. 30 Tab 0 ??? mometasone (NASONEX) 50 mcg/actuation nasal spray Instill 2 Sprays into both nostrils daily 3 Inhaler 1 ??? montelukast (SINGULAIR) 10 mg tablet Take 1 Tab by mouth daily 90 Tab 1 ??? nortriptyline (PAMELOR) 75 mg capsule Take 1 Cap by mouth daily 90 Each 1 ??? omeprazole (PRILOSEC) 40 mg capsule Take 1 Cap by mouth daily 90 Cap 1 ??? ondansetron (ZOFRAN) 4 mg tablet TAKE ONE TABLET BY MOUTH DAILY NEEDED for nausea 30 Tab 0 ??? pregabalin (LYRICA) 150 mg capsule Take 1 Cap by mouth 3 times daily Daily Max: 450 mg 270 Each1 ??? roflumilast (DALIRESP) 500 mcg tablet Take 1 Tab by mouth daily 90 Tab 3 ??? rOPINIRole (REQUIP) 2 mg tablet Take 1 Tab by mouth at bedtime TAKE ONE TABLET BY MOUTH AT BEDTIME 90 Tab 1 ??? sertraline (ZOLOFT) 100 mg tablet Take 1 Tab by mouth daily TAKE TWO TABLETS BY MOUTH DAILY 180Tab 1 ??? sumatriptan (IMITREX) 50 mg tablet Take 1 tablet by mouth as needed for migraine. Daily maximumdose: 100 mg. Patient averages 12 headaches per month. 9 Tab 2 ??? tamsulosin (FLOMAX) 0.4 mg capsule Take 1 Cap by mouth daily 90 Cap 1 ??? tiotropium bromide (SPIRIVA RESPIMAT) 1.25 mcg/actuation mist Inhale 2.5 mcg as directed daily 4 g 5 ??? zolpidem (AMBIEN) 5 mg tablet Take 1 Tab by mouth at bedtime as needed for Sleep. Daily Max: 5 mg 28 Tab 1 No current facility-administered medications on file prior to visit. Allergies Allergen Reactions ??? Toradol [Ketorolac Tromethamine] Hives ??? Motrin [Ibuprofen] Itching Social History Substance Use Topics ??? Smoking status: Former Smoker -- 2.00 packs/day for 35 years Types: Cigarettes Quit date: 10/14/2010 ??? Smokeless tobacco: Never Used ??? Alcohol Use: No Comment: rarely ROS - See HPI Objective: BP 118/76 mmHg Pulse 72 Temp(Src) 36.7 ??C (98.1 ??F) (Tympanic) Resp 16 Ht 162.6 cm (64) Wt 89.359 kg (197 lb) BMI 33.80 kg/m2 LMP 01/11/1987 Physical Exam deferred Assessment: Plan: Liset was seen today for chronic pain. Diagnoses and all orders for this visit: Chronic pain syndrome Chronic back pain, unspecified back pain laterality, unspecified location Chronic knee pain, unspecified laterality Orders: - HYDROcodone-acetaminophen (NORCO) 5-325 mg tablet; Take 1-2 Tabs by mouth every 6 hours as neededfor up to 28 days for Pain. Earliest Fill Date: 03/19/16 Daily Max: 8 Tabs - HYDROcodone-acetaminophen (NORCO) 5-325 mg tablet; Take 1-2 Tabs by mouth every 6 hours as neededfor up to 28 days for Pain. Earliest Fill Date: 02/20/16 Daily Max: 8 Tabs Stable Recheck net visit Insomnia, unspecified type Continue Ambien Patient Education Topic: as above Method: Verbal Taught to: Patient Barriers: None Outcomes: Verbalized understanding Return in about 1 month (around 03/21/2016) for PE. documented in this encounter Plan of Treatment Upcoming Encounters Date Type Department Care Team (Late st Contact Info) Description 06/29/2024 14:15 EDT Office Visit [facility] Medicine [facility] [address] [place] [address] Jean Munoz MD [address] [place] [phone] documented as of this encounter Visit Diagnoses Diagnosis Chronic pain syndrome- Primary Chronic back pain, unspecified back pain laterality, unspecified location Chronic knee pain, unspecified laterality Insomnia, unspecified type Screening for osteoporosis- Primary [...] 01/24/16 Daily Max: 8 Tabs Reorder 01/24/2016 02/20/2016 HYDROcodone-acetaminophe n (NORCO) 5-325 mg tabletIndications:Chroni c pain syndrome,Cervicalgia,Chr onic knee pain, unspecified laterality,Chronic back pain Take 1-2 Tabs by mouth every 6 hours as needed for up to 28 days for Pain Earliest Fill Date: 11/29/15 Daily Max: 8 Tabs Reorder 11/29/2015 02/20/2016 documented as of this encounter Care Teams Glass Maker Relationship Specialty Start Date End Date Jean Munoz MD [address] [place] [phone] PCP - General 12/31/08 Manny Rizzo MD [address] [place] [address] 04/20/10 documented as of this encounter
--- OUTSIDE RECORDS SUMMARY | 2024-06-10 07:23 | XMS_ITS | Encounter Summary ---
Author Organization [facility] Address [address] [place] [address] Care Team Providers Care Vp Genetic Name Role Phone Jean Munoz MD Primary Care Provider Manny Rizzo MD Unavailable Encounter Details Date Type Department Care Team (Latest Contact Info) Description 06/08/2016 8:46 EDT - 06/08/2016 23:59 EDT Hospital Encounter [address] [address] Jean Munoz MD [address] [place] [phone] Discharge Disposition: Auto Discharge Social History [...] as of this encounter Discharge Diagnoses Diagnosis Z12.31 Encounter for screening mammogram for malignant neoplasm of breast-Z12.31[ICD-10-CM] documented in this encounter Medications at Time of Discharge Medication Sig Dispensed Refills Start Date End Date docusate sodium (COLACE) 100 mg capsule Take 1 Capsule by mouth 2 times daily as needed for Constipation. 09/24/2010 baclofen (LIORESAL) 10 mg tabletIndications:Chron ic pain syndrome Take 1 Tab by mouth 3 times daily as needed (mucles tightness). 180 Tab 3 04/13/2016 06/01/2017 Ciclesonide 50 mcg spray,non-aerosolIndica tions:Seasonal allergic [...] as directed 3 Inhaler 3 04/13/2016 03/03/2017 HYDROcodone-acetaminoph en (NORCO) 5-325 mg tabletIndications:Chron ic pain syndrome,Chronic knee pain, unspecified laterality Take 1-2 Tabs by mouth every 6 hours as needed for up to 28 days for Pain. Earliest Fill Date: 06/11/16 Daily Max: 8 Tabs 112 Tab 0 06/11/2016 07/01/2016 HYDROcodone-acetaminoph en (NORCO) 5-325 mg tabletIndications:Chron ic pain syndrome,Chronic knee pain, unspecified laterality Take 1-2 Tabs by mouth every 6 hours as needed for up to 28 days for Pain. Earliest Fill Date: 05/14/16 Daily Max: 8 Tabs 112 Tab 0 05/14/2016 07/01/2016 HYDROcodone-acetaminoph en (NORCO) 5-325 mg tabletIndications:Chron ic pain syndrome,Cervicalgia,Ch ronic knee pain, unspecified laterality Take 1-2 Tabs by mouth every 6 hours as needed for up to 28 days for Pain. Earliest Fill Date: 04/16/16 Daily Max: 8 Tabs 112 Tab 0 04/16/2016 07/01/2016 HYDROcodone-acetaminoph en (NORCO) 5-325 mg tabletIndications:Chron ic pain syndrome,Cervicalgia,Ch ronic knee pain, unspecified laterality,Chronic back pain Take 1 Tab by mouth 4 times daily for 11 days Earliest Fill Date: 09/23/15 Daily Max: 4 Tabs 44 Tab 0 09/23/2015 01/04/2017 hydroxypropyl methylcellulose (ISOPTO TEARS) 0.5 % ophthalmic [...] HOURS NEEDED 3 Inhaler 3 04/13/2016 05/22/2017 methylphenidate (RITALIN;METHYLIN) 20 mg tablet Take 2 tabs by mouth in the morning. Earliest Fill Date: 06/04/16 60 Tab 06/04/2016 07/01/2016 methylphenidate (RITALIN;METHYLIN) 10 mg tablet Take one tab in the afternoon for narcolepsy. 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 Daily Max: 600 mg 60 Each 5 04/13/2016 11/14/2016 roflumilast (DALIRESP) 500 mcg tabletIndications:Chron ic obstructive pulmonary disease, unspecified COPD type (HCC-CMS) Take 1 Tab by mouth daily. 90 Tab 3 04/13/2016 04/14/2017 rOPINIRole (REQUIP) 2 mg tabletIndications:Restl ess legs syndrome Take 1 Tab by mouth at bedtime. TAKE ONE TABLET BY MOUTH AT BEDTIME 90 Tab 3 04/13/2016 05/22/2017 sertraline (ZOLOFT) 100 mg tabletIndications:Major depressive disorder, recurrent, severe without psychotic features ([facility]-CMS) Take 2 Tabs by mouth daily. 180 Tab 3 04/13/2016 05/22/2017 sumatriptan (IMITREX) 50 mg tabletIndications:Other type of migraine Take 1 tablet by mouth as needed for migraine. Daily maximum dose: 100 mg. Patient averages 12 headaches per month. 9 Tab 2 04/13/2016 10/01/2016 tamsulosin (FLOMAX) 0.4 mg capsuleIndications:Hesi tancy Take [...] Daily Max: 5 mg 28 Tab 4 05/11/2016 10/01/2016 documented as of this encounter Discharge Disposition Disposition Code Departure Means Destination Auto Discharge Home documented in this encounter Plan of Treatment Upcoming Encounters Date Type Department Care Team (Late st Contact Info) Description 06/29/2024 14:15 EDT Office Visit [facility] [address] [place] [address] Jean Munoz MD [address] [place] [phone] documented as of this encounter Visit Diagnoses Not on filedocumented in this encounter Care Teams Vp Genetic Relationship Specialty Start Date End Date Jean Munoz MD [address] [place] [phone] PCP - General 12/31/08 Manny Rizzo MD [address] [place] [phone] 04/20/10 documented as of this encounter
--- OUTSIDE RECORDS SUMMARY | 2024-06-10 07:23 | XMS_ITS | Encounter Summary ---
Author Organization [facility] Address [address] [place] [address] Care Team Providers Care Hiv Nurse Name Role Phone Jean Munoz MD Primary Care Provider Manny Rizzo MD Unavailable Reason for Visit * Reason Onset Date Comments Medications Refill 03/10/2016 Encounter Details Date Type Department Care Team (Late st Contact Info) Description 03/10/2016 Refill [facility] Sleep Program - [address] [phone] Tiana Bacon [address] [place] [phone] Medications Refill Social History Tobacco Use [...] Telephone Encounter - Corrina Ac RN - 03/10/2016 1250 EDT Called pt and let her know prescriptions ready for picker/puller. 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 documented in this encounter Plan of Treatment Upcoming Encounters Date Type Department Care Team (Late st Contact Info) Description 06/29/2024 14:15 EDT Office Visit [facility] [address] [place] [address] Jean Munoz MD [address] [place] [phone] documented as of this encounter Visit Diagnoses Not on filedocumented in this encounter Care Teams Hiv Nurse Relationship Specialty Start Date End Date Jean Munoz MD [address] [place] [phone] PCP - General 12/31/08 Manny Rizzo MD [address] [place] [address] 04/20/10 documented as of this encounter
--- OUTSIDE RECORDS SUMMARY | 2024-06-10 07:23 | XMS_ITS | Encounter Summary ---
Author Organization [facility] Address [address] [place] [address] Care Team Providers Care Rad Technologist Name Role Phone Jean Munoz MD Primary Care Provider Manny Rizzo MD Unavailable Reason for Visit * Reason Comments Social Work Encounter Details Date Type Department Care Team (Late st Contact Info) Description 01/31/2016 Community Health Team [facility] [address] [place] [address] Claudia Pro V, AUTOMOTIVE QUALITY MANAGER [address] [place] [phone] Social History Tobacco Use Types [...] Progress Notes * Claudia Pro LICSW - 01/31/2016 1128 EDT Patient did not arrive for scheduled appointment with T Board Mixer Tender. This is second no-show. .. [facility], [address] [place] [address] Total Time: 5 min Referral: n/a Follow up: Admin--this is patient's second NOS Status: Active documented in this encounter Plan of Treatment Upcoming Encounters Date Type Department Care Team (Late st Contact Info) Description 06/29/2024 14:15 EDT Office Visit [address] [phone] Jean Munoz MD [address] [place] [phone] documented as of this encounter Visit Diagnoses Not on filedocumented in this encounter Care Teams Rad Technologist Relationship Specialty Start Date End Date Jean Munoz MD [address] [place] [phone] PCP - General 12/31/08 Manny Rizzo MD [address] [place] [phone] 04/20/10 documented as of this encounter
--- OUTSIDE RECORDS SUMMARY | 2024-06-10 07:23 | XMS_ITS | Encounter Summary ---
Author Organization [facility] Address [address] [place] [address] Care Team Providers Care Product Promoter Sales Person Name Role Phone Jean Munoz MD Primary Care Provider Manny Rizzo MD Unavailable Reason for Visit * Reason Comments Other Encounter Details Date Type Department Care Team (Late st Contact Info) Description 01/17/2016 [facility] [address] [place] [address] Jean Munoz MD [address] [place] [phone] Other Social History Tobacco Use Types [...] End Da te ondansetron (ZOFRAN) 4 mg tablet TAKE ONE TABLET BY MOUTH DAILY NEEDED for nausea 30 Tab 0 01/17/2016 04/13/2016 doxycycline (VIBRA-TABS) 100 mg tabletIndications:Rosacea Take 1 tablet by mouth every day 30 Tab 0 01/17/2016 03/07/2016 documented in this encounter Miscellaneous Notes * Telephone Encounter - Jean Munoz MD - 01/17/2016 1001 EDT escript done, please notify patient, thanks Please let her know we renewed enough to last until next visit, we will discuss whether to continueor change therapy at that time, thanks * Telephone Encounter - Lena Healy RN - 01/17/2016 0917 EDT Medication(s) Requested: Doxycycline, Zofran [facility]acy: [facility] Last Refill Date: 04/10/2015, 08/20/2015 Last Visit Date: 12/26/2015 Next Visit Date: 02/20/2016 Is patient out of medication? no Lena Healy RN 01/17/2016 9:17 documented in this encounter Plan of Treatment Upcoming Encounters Date Type Department Care Team (Late st Contact Info) Description 06/29/2024 14:15 EDT Office Visit [address] [address] Jean Munoz MD [address] [place] [phone] documented as of this encounter [...] End Da te ondansetron (ZOFRAN) 4 mg tablet Take one tablet by mouth daily as needed for nausea Reorder 08/20/2015 01/17/2016 doxycycline (VIBRA-TABS) 100 mg tabletIndications:Rosace a TAKE 1 TABLET BY MOUTH EVERY DAY Reorder 04/10/2015 01/17/2016 documented as of this encounter Care Teams Product Promoter Sales Person Relationship Specialty Start Date End Date Jean Munoz MD [address] [place] [phone] PCP - General 12/31/08 Manny Rizzo MD [address] [place] [address] 04/20/10 documented as of this encounter
--- OUTSIDE RECORDS SUMMARY | 2024-06-10 07:23 | XMS_ITS | Encounter Summary ---
Author Organization [facility] Address [address] [place] [address] Care Team Providers Care Certified Dietary Manager Name Role Phone Jean Munoz MD Primary Care Provider Manny Rizzo MD Unavailable Reason for Visit * Reason Onset Date Comments Medications Refill 12/18/2015 Encounter Details Date Type Department Care Team (Late st Contact Info) Description 12/18/2015 Refill [facility] [address] [place], [place] [phone] Jean Munoz MD [address] [place] [phone] Medications Refill Social History Tobacco [...] 12 headaches per month. 9 Tab 2 12/18/2015 04/13/2016 documented in this encounter Miscellaneous Notes * Telephone Encounter - Jean Munoz MD - 12/18/2015 1338 EDT escript done, please notify patient, thanks * Telephone Encounter - Kavita Adames - 12/18/2015 1308 EDT Medication(s) Requested: sumatriptan Pharmacy: [facility] Last Refill Date: 06.17.15 Last Visit Date: Next Visit Date: 12/26/2015 Is patient out of medication? yes Kavita Adames 12/18/2015 13:08 documented in this encounter Plan of Treatment Upcoming Encounters Date Type Department Care Team (Late st Contact Info) Description 06/29/2024 14:15 EDT Office Visit [facility] Medicine [facility] [address] [place] [address] Jean Munoz MD [address] [place] [phone] documented as of this encounter Visit Diagnoses Diagnosis Other type of migraine- Primary Screening for osteoporosis- Primary Special screening [...] Patient averages 12 headaches per month. Reorder 06/17/2015 12/18/2015 documented as of this encounter Care Teams Certified Dietary Manager Relationship Specialty Start Date End Date Jean Munoz MD [address] [place] [phone] PCP - General 12/31/08 Manny Rizzo MD [address] [place] [address] 04/20/10 documented as of this encounter
--- OUTSIDE RECORDS SUMMARY | 2024-06-10 07:23 | XMS_ITS | Encounter Summary ---
Author Organization [facility] Address [address] [place] [address] Care Team Providers Care Slitter And Cutter Operator Name Role Phone Jean Munoz MD Primary Care Provider Manny Rizzo MD Unavailable Reason for Visit * Reason Onset Date Comments Medications Refill 10/21/2015 Encounter Details Date Type Department Care Team (Late st Contact Info) Description 10/21/2015 Refill [facility] Sleep Program - [address] [phone] Tiana Bacon [address] [place] [phone] Medications Refill Social History Tobacco Use [...] the afternoon for narcolepsy Earliest Fill Date: 10/22/15 30 Tab 0 10/22/2015 11/18/2015 methylphenidate (RITALIN;METHYLIN) 20 mg tablet Take 2 tabs by mouth in the morning. Earliest Fill Date: 10/22/15 60 Tab 0 10/22/2015 11/18/2015 documented in this encounter Miscellaneous Notes * Telephone Encounter - Corrina Ac RN - 10/22/2015 0951 EST Spoke with patient and let her know her (ritalin) prescription(s) ready for product picker at the Sleep Program. * Telephone Encounter - Corrina Ac RN - 10/21/2015 0831 EST Called pt and left message letting her know out of office and will give her a call tomorrow when her prescription is ready. * Telephone Encounter - Barbara Gimenez - 10/21/2015 08 EST PT needs refill on Ritalin 20mg and Ritalin 10mg, PT will product picker at front office specialist. She does have an appointment in town today. documented in this encounter Plan of Treatment Upcoming Encounters Date Type Department Care Team (Late st Contact Info) Description 06/29/2024 14:15 EDT Office Visit [facility] [address] [place] [address] Jean Munoz MD [address] [place] [phone] documented as of this encounter Visit Diagnoses Not on filedocumented in this encounter Discontinued Medications Medication Sig Discontinue Reason Start Date End Da te methylphenidate (RITALIN;METHYLIN) 20 mg tablet Take 2 tabs by mouth in the morning. Earliest Fill Date: 09/24/15 Reorder 09/24/2015 10/21/2015 methylphenidate (RITALIN;METHYLIN) 10 mg tablet Take one tab in the afternoon for narcolepsy Earliest Fill Date: 09/24/15 Reorder 09/24/2015 10/21/2015 documented as of this encounter Care Teams Slitter And Cutter Operator Relationship Specialty Start Date End Date Jena Munoz MD [address] [place] [phone] PCP - General 12/31/08 Manny Rizzo MD [address] [place] [address] 04/20/10 documented as of this encounter
--- OUTSIDE RECORDS SUMMARY | 2024-06-10 07:23 | XMS_ITS | Encounter Summary ---
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) Discharge Disposition: Auto Discharge Social History Tobacco Use Types Packs/Day Years Used Date Smoking Tobacco: Former Cigarettes 2 35 0 10/14/1975 - 10/14/2010 Smokeless Tobacco: Never Tobacco Cessation:Counseling Given: No Alcohol Use Standard Drinks/Week Comments No 0 (1 standard drink = 0.6 oz pur e alcohol) rarely Sex and Gender Information Value Date Recorded Sex Assigned at Not on file Gender Identity Female 08/11/2019 16:07 EST Sexual Orientation Not on file documented as of this encounter Last Filed Vital Signs Vital Sign Reading Time Taken Comments Blood Pressure 124/70 02/04/2016935 EDT Pulse 95 02/04/2016935 EDT Temperature - - Respiratory Rate 20 02/04/2016935 EDT Oxygen Saturation 97% 02/04/2016935 EDT Inhaled Oxygen Concentration - - Weight 89.8 kg (198 lb) 02/04/2016935 EDT Height 162.6 cm (5' 4) 02/04/2016935 EDT Body Mass Index 33.99 02/04/2016935 EDT documented in this encounter Functional Status [...] as of this encounter Discharge Diagnoses Diagnosis G47.419 Narcolepsy without cataplexy-G47.419[ICD-10-CM] documented in this encounter Ordered Prescriptions Prescription Sig Dispensed Refills Start Date End Da te methylphenidate (RITALIN;METHYLIN) 10 mg tablet Take one tab in the afternoon for narcolepsy, Fill for February 13, 2016. 30 Tab 0 02/04/2016 03/06/2016 methylphenidate (RITALIN;METHYLIN) 20 mg tablet Take 2 tabs by mouth in the morning. Fill for February 13, 2016 60 Tab 0 02/04/2016 03/06/2016 documented in this encounter Discharge Disposition Disposition Code Departure Means Destination Auto Discharge documented in this encounter Progress Notes * Tiana Bacon MD - 02/04/2016 1009 EDT Name: Liset Viera : 1960 Date of Visit: 02/04/2016 HPI: Liset Viera is a 55 year old W who presents for evaluation of narcolepsy without cataplexy. Hercurrent regimen of methylphenidate 20 mg (2 tab qam) and 10 mg in the afternoon is effective for her. She denies any headache (apart from typical migraines) or palpitations. Outpatient Prescriptions Marked as Taking for the 02/04/16 encounter (Office Visit) with Tiana Bacon MD [...] February 13, 2016. 30 Tab 0 ??? [DISCONTINUED] methylphenidate (RITALIN;METHYLIN) 20 mg tablet Take 2 tabs by mouth in the morning. 60 Tab 0 ??? [DISCONTINUED] methylphenidate (RITALIN;METHYLIN) 10 mg tablet Take one tab in the afternoon for narcolepsy Earliest Fill Date: 01/13/16 30 Tab 0 ??? mometasone (NASONEX) 50 [...] Daily Max: 5 mg 28 Tab 1 Allergies Allergen Reactions ??? Toradol [Ketorolac Tromethamine] Hives ??? Motrin [Ibuprofen] Itching ROS: A ten point ROS was performed and was negative except for pertinent positives in the HPI. EXAM: Filed Vitals: 02/04/16 0936 BP: 124/70 Pulse: 95 Resp: 20 Height: 162.6 cm (64) Weight: 89.812 kg (198 lb) SpO2: 97% A/P: Narcolepsy without cataplexy Doing well on current dosage of methyphenidate Continue on current dosage Follow up in 1 year I spent a total of 20 minutes in face to face time with this patient and > 50 percent of that time was spent in counseling and coordination of care as described in the progress note. Tiana Bacon MD 02/04/2016 11:16 documented in this encounter Plan of Treatment Upcoming Encounters Date Type Department Care Team (Late st Contact Info) Description 06/29/2024 14:15 EDT Office Visit [facility] [address] [place] [address] Jean Munoz MD [address] [place] [phone] documented as of this encounter Visit [...] tabs by mouth in the morning. Reorder 01/13/2016 02/04/2016 methylphenidate (RITALIN;METHYLIN) 10 mg tablet Take one tab in the afternoon for narcolepsy Earliest Fill Date: 01/13/16 Reorder 01/13/2016 02/04/2016 documented as of this encounter Care Teams Intern Architect Relationship Specialty Start Date End Date Jean Munoz MD [address] [place] [phone] PCP - General 12/31/08 [place] [address] [place] [phone] 04/20/10 documented as of this encounter
--- OUTSIDE RECORDS SUMMARY | 2024-06-10 07:23 | XMS_ITS | Encounter Summary ---
Author Organization [facility] Address [address] [place] [address] Care Team Providers Care Emission Specialist Name Role Phone Jean Munoz MD Primary Care Provider Manny Rizzo MD Unavailable Reason for Visit * Reason Onset Date Comments Medications Refill 03/06/2016 Encounter Details Date Type Department Care Team (Late st Contact Info) Description 03/06/2016 Telephone [facility] Sleep Program - [address] [phone] Corrina Ac, RN [address] [place] [address] Medications Refill Social History Tobacco Use Types [...] the afternoon for narcolepsy. Earliest Fill Date: 03/12/16 30 Tab 0 03/12/2016 04/06/2016 methylphenidate (RITALIN;METHYLIN) 20 mg tablet Take 2 tabs by mouth in the morning. Earliest Fill Date: 03/12/16 60 Tab 0 03/12/2016 04/06/2016 documented in this encounter Miscellaneous Notes * Telephone Encounter - Corrina Ac RN - 03/06/2016 0913 EDT Methylphenidate refills printed for signature (to be filled on/after 03/12/16). away from clinic next week. documented in this encounter Plan of Treatment Upcoming Encounters Date Type Department Care Team (Late st Contact Info) Description 06/29/2024 14:15 EDT Office Visit [facility] [address] [place] [address] Jean Munoz MD [address] [place] [phone] documented as of this encounter Visit Diagnoses Not on filedocumented in this encounter Discontinued Medications Medication Sig Discontinue Reason Start Date End Da te methylphenidate (RITALIN;METHYLIN) 20 mg tablet Take 2 tabs by mouth in the morning. Fill for February 13, 2016 Reorder 02/04/2016 03/06/2016 methylphenidate (RITALIN;METHYLIN) 10 mg tablet Take one tab in the afternoon for narcolepsy, Fill for February 13, 2016. Reorder 02/04/2016 03/06/2016 documented as of this encounter Care Teams Emission Specialist Relationship Specialty Start Date End Date Jean Munoz MD [address] [place] [address] PCP - General 12/31/08 Manny Rizzo MD [address] [place] [phone] 04/20/10 documented as of this encounter
--- OUTSIDE RECORDS SUMMARY | 2024-06-10 07:23 | XMS_ITS | Encounter Summary ---
Author Organization [facility] Address [address] [place] [address] Care Team Providers Care Resource Coordinator Name Role Phone Jean Munoz MD Primary Care Provider Manny Rizzo MD Unavailable Encounter Details Date Type Department Care Team (Late st Contact Info) Description 03/11/2016 Abstract [facility] [address] [place] [address] Jean Munoz MD [address] [place] [phone] Social History Tobacco Use Types [...] Visit [facility] [address] [place] [address] Jean Munoz MD [address] [place] [phone] documented as of this encounter Visit Diagnoses Not on filedocumented in this encounter Care Teams Resource Coordinator Relationship Specialty Start Date End Date Jean Munoz MD [address] [place] [phone] PCP - General 12/31/08 Manny Rizzo MD [address] [place] [address] 04/20/10 documented as of this encounter
--- OUTSIDE RECORDS SUMMARY | 2024-06-10 07:23 | XMS_ITS | Encounter Summary ---
Author Organization [facility] Address [address] [place] [address] Care Team Providers Care Picker/Puller Name Role Phone Jean Munoz MD Primary Care Provider Manny Rizzo MD Unavailable Reason for Visit * Reason Onset Date Comments Prior Auth, Medication 03/09/2016 Xopenex Encounter Details Date Type Department Care Team (Late st Contact Info) Description 03/09/2016 Telephone [facility] [address] [place] [address] Kaitlyn Montero LPN [address] [place] [address] Prior Auth, Medication (Xopenex ) Social History [...] Telephone Encounter - Kaitlyn Montero LPN - 03/10/2016 1432 EDT Medication: Xopenex HFA Insurance Co: [place] Medicaid Approval # (if applicable): [id number] Approval dates: 03/09/2016-03/09/2017 Name of Pharmacy notified: [facility] Called patient and informed her of the PA approval. * Telephone Encounter - Kaitlyn Montero LPN - 03/09/2016 1007 EDT PA sent to insurance. Waiting for response. documented in this encounter Plan of Treatment Upcoming Encounters Date Type Department Care Team (Late st Contact Info) Description 06/29/2024 14:15 EDT Office Visit [facility] Medicine [facility] [address] [place], [place] [phone] Jean Munoz MD [address] [place] [phone] documented as of this encounter Visit Diagnoses Not on filedocumented in this encounter Care Teams Picker/Puller Relationship Specialty Start Date End Date Jean Munoz MD [address] [place] [phone] PCP - General 12/31/08 Manny Rizzo MD [address] [place] [phone] 04/20/10 documented as of this encounter
--- OUTSIDE RECORDS SUMMARY | 2024-06-10 07:23 | XMS_ITS | Encounter Summary ---
Author Organization [facility] Address [address] [place] [address] Care Team Providers Care Supervisor Tile And Mottle Name Role Phone Jean Munoz MD Primary Care Provider Manny Rizzo MD Unavailable Reason for Visit * Reason Onset Date Comments Medication Management 01/17/2016 Encounter Details Date Type Department Care Team (Late st Contact Info) Description 01/17/2016 Telephone [facility] [address] [place] [address] Jean Munoz MD [address] [place] [phone] Medication Management Social History Tobacco Use [...] Miscellaneous Notes * Telephone Encounter - Yadira Negro RN - 01/17/2016 1350 EDT Pharmacist notified per Dr. Munoz its OK to switch to Doxycycline capsules (rather than tablets)since that is what her insurance will cover. * Telephone Encounter - Vanessa Wade - 01/17/2016 1038 EDT Doxycycline script is for tablets Insurance will only pay for capsules Ok to switch? documented in this encounter Plan of Treatment Upcoming Encounters Date Type Department Care Team (Late st Contact Info) Description 06/29/2024 14:15 EDT Office Visit [facility] [address] [place] [address] Jean Munoz MD [address] [place] [phone] documented as of this encounter Visit Diagnoses [...] colon documented in this encounter Care Teams Supervisor Tile And Mottle Relationship Specialty Start Date End Date Jean Munoz MD [address] [place] [phone] PCP - General 12/31/08 Manny Rizzo MD [address] [place] [phone] 04/20/10 documented as of this encounter
--- OUTSIDE RECORDS SUMMARY | 2024-06-10 07:23 | XMS_ITS | Encounter Summary ---
Author Organization [facility] Address [address] [place] [address] Care Team Providers Care Hand Tile Maker Name Role Phone Jean Munoz MD Primary Care Provider Manny Rizzo MD Unavailable Reason for Visit * Reason Onset Date Comments Medications Refill 06/03/2016 Encounter Details Date Type Department Care Team (Late st Contact Info) Description 06/03/[address] [facility] Sleep Program - [address] [phone] Tiana Bacon [address] [place] [address] Medications Refill Social History Tobacco [...] Fill Date: 06/04/16 30 Tab 06/04/2016 07/01/2016 methylphenidate (RITALIN;METHYLIN) 20 mg tablet Take 2 tabs by mouth in the morning. Earliest Fill Date: 06/04/16 60 Tab 06/04/2016 07/01/2016 documented in this encounter Miscellaneous Notes * Telephone Encounter - Corrina Ac RN - 06/03/2016 1410 EDT Pt picked up her ritalin prescriptions today per Odilia MCKEON * Telephone Encounter - Odilia Ochoa - 06/03/2016 0915 EDT Medication Refill Medication(s) Requested: RITALIN;METHYLIN) 10 mg tablet & RITALIN;METHYLIN) 20 mg tablet Pharmacy (reconcile pharmacy list): Last Visit Date: 02.04.16 Next Visit Date: Visit date not found Is patient out of medication? No Picking up/mailing (location)/calling in/eprescribe? chair upholsterer 30 day supply/90 day supply? ? Odilia Ochoa 06/03/20169:16 documented in this encounter Plan of Treatment Upcoming Encounters Date Type Department Care Team (Late st Contact Info) Description 06/29/2024 14:15 EDT Office Visit [facility] [address] [place], [place] [phone] Jean Munoz MD [address] [place] [phone] documented as of this encounter Visit Diagnoses Not on filedocumented in this encounter Discontinued Medications Medication Sig Discontinue Reason Start Date End Da te methylphenidate (RITALIN;METHYLIN) 20 mg tablet Take 2 tabs by mouth in the morning. Reorder 05/06/2016 06/03/2016 methylphenidate (RITALIN;METHYLIN) 10 mg tablet Take one tab in the afternoon for narcolepsy. Earliest Fill Date: 05/06/16 Reorder 05/06/2016 06/03/2016 documented as of this encounter Care Teams Hand Tile Maker Relationship Specialty Start Date End Date Jean Munoz MD [address] [place] [phone] PCP - General 12/31/08 Manny Rizzo MD [address] [place] [address] 04/20/10 documented as of this encounter
--- OUTSIDE RECORDS SUMMARY | 2024-06-10 07:23 | XMS_ITS | Encounter Summary ---
Author Organization [facility] Address [address] [place] [address] Care Team Providers Care First Coat Operator Name Role Phone Jean Munoz MD Primary Care Provider Manny Rizzo MD Unavailable Reason for Visit * Reason Comments Chronic Pain Encounter Details Date Type Department Care Team (Late st Contact Info) Description 12/26/2015 11:00 EDT Office Visit [facility] [address] [place] [address] Jean Munoz MD [address] [place] [phone] Chronic pain syndrome (Primary Dx); Chronic back pain, unspecified back pain laterality, unspecified location; Chronic knee pain, unspecified laterality; Cervicalgia; Chronic obstructive pulmonary disease, unspecified COPD type (CMS-HCC) (HCC-CMS); Insomnia, unspecified type; Laceration of right hand, subsequent encounter Social History Tobacco Use Types Packs/Day Years [...] Reading Time Taken Comments Blood Pressure 132/76 12/26/2015 1057 EDT Pulse 72 12/26/2015 1057 EDT Temperature 36.6 ??C (97.8 ??F) 12/26/2015 1057 EDT Respiratory Rate 16 12/26/2015 1057 EDT Oxygen Saturation - - Inhaled Oxygen Concentration - - Weight 91.6 kg (202 lb) 12/26/2015 1057 EDT Height 162.6 cm (5' 4) 12/26/2015 1057 EDT Body Mass Index 34.67 12/26/2015 1057 EDT documented in this encounter Functional Status [...] te HYDROcodone-acetaminophen (NORCO) 5-325 mg tabletIndications:Chronic pain syndrome,Cervicalgia,Neurodiagnostic Technologist majo knee pain, unspecified laterality,Chronic back pain, unspecified back pain laterality, unspecified location Take 1-2 Tabs by mouth every 6 hours as needed for up to 28 days for Pain. Earliest Fill Date: 12/27/15 Daily Max: 8 Tabs 112 Tab 0 12/27/2015 12/27/2015 HYDROcodone-acetaminophen (NORCO) 5-325 mg tabletIndications:Chronic pain syndrome,Cervicalgia,Neurodiagnostic Technologist majo knee pain, unspecified laterality,Chronic back pain, unspecified back pain laterality, unspecified location Take 1-2 Tabs by mouth every 6 hours as needed for up to 28 days for Pain. Earliest Fill Date: 01/24/16 Daily Max: 8 Tabs 112 Tab 0 01/24/2016 12/27/2015 zolpidem (AMBIEN) 5 mg tabletIndications:Insomni a, unspecified type Take 1 Tab by mouth at bedtime as needed for Sleep. Daily Max: 5 mg 28 Tab 1 12/26/2015 12/27/2015 documented in this encounter Progress Notes * Jean Munoz MD - 12/26/2015 1102 EDT Subjective: Patient ID: Liset Viera is an 54 y.o. female. Chief Complaint Patient presents with ??? Chronic Pain HPI Chronic pain stable Taking hydrocodone/APAP 4 times daily At end of visit admitted that she is taking more than 4 day sometimes and ran out last night, requesting refill early Is due for prescription tomorrow COPD/asthma Breathing has been stable Insomnia Stable Needs refill Also fell in July Injury right hand Laceration Since then has had numbness and discomfort and Patient Active Problem List Diagnosis ??? Severe [...] ??? Other disorders of eyelid(374.89) ??? Fibromyalgia Past Medical History Diagnosis Date ??? UTI [...] MOUTH EVERY DAY 90 Tab 1 ??? fexofenadine (JUDITH) 180 mg tablet [...] Fill Date: 11/29/15 Daily Max: 8 Tabs 112 Tab 0 [...] Earliest Fill Date: 12/16/15 30 Tab 0 ??? mometasone (NASONEX) 50 [...] 1 ??? ondansetron (ZOFRAN) 4 mg tablet Take one tablet by mouth daily as needed for nausea 30 Tab 0 ??? pregabalin [...] mcg as directed daily 4 g 5 No current facility-administered medications on file prior to visit. Allergies Allergen Reactions ??? Toradol [Ketorolac Tromethamine] Hives ??? Motrin [Ibuprofen] Itching Social History Substance Use Topics ??? Smoking status: Former Smoker -- 2.00 packs/day for 35 years Types: Cigarettes Quit date: 10/14/2010 ??? Smokeless tobacco: Never Used ??? Alcohol Use: No Comment: rarely ROS - See HPI Objective: BP 132/76 mmHg Pulse 72 Temp(Src) 36.6 ??C (97.8 ??F) (Oral) Resp 16 Ht 162.6 cm (64) Wt91.627 kg (202 lb) BMI 34.66 kg/m2 LMP 01/11/1987 Physical Exam Inspection right hand healed laceration with scar, range of motion normal Assessment: Plan: Liset was seen today for chronic pain. Diagnoses and all orders for this visit: Chronic pain syndrome Chronic back pain, unspecified back pain laterality, unspecified location Chronic knee pain, unspecified laterality Cervicalgia Orders: - HYDROcodone-acetaminophen (NORCO) 5-325 mg tablet; Take 1-2 Tabs by mouth every 6 hours as neededfor up to 28 days for Pain. Earliest Fill Date: 01/24/16 Daily Max: 8 Tabs - HYDROcodone-acetaminophen (NORCO) 5-325 mg tablet; Take 1-2 Tabs by mouth every 6 hours as neededfor up to 28 days for Pain. Earliest Fill Date: 12/27/15 Daily Max: 8 Tabs Reviewed opioid agreement, reinforced that we would not refill early if taken more than prescribed Recheck here in 8 weeks since I will be away at the beginning of March Chronic obstructive pulmonary disease, unspecified COPD type Stable Insomnia, unspecified type Orders: - zolpidem (AMBIEN) 5 mg tablet; Take 1 Tab by mouth at bedtime as needed for Sleep. Daily Max: 5 mg Laceration of right hand, subsequent encounter may have some residual sensory impairment from nerve injury Hopefully this will improve but may take 1-2 years Patient Education Topic: as above Method: Verbal Taught to: Patient Barriers: None Outcomes: Verbalized understanding Return in 8 weeks (on 02/21/2016) for SERA. documented in this encounter Plan of Treatment Upcoming Encounters Date Type Department Care Team (Late st Contact Info) Description 06/29/2024 14:15 EDT Office Visit [facility] [address] [place], [place] [phone] Jean Munoz MD [address] [place] [phone] documented as of this encounter Visit Diagnoses Diagnosis Chronic pain syndrome- Primary Chronic back pain, unspecified back pain laterality, unspecified location Chronic knee pain, unspecified laterality Cervicalgia Chronic obstructive pulmonary disease, unspecified COPD type ([facility]) Insomnia, unspecified type Laceration of right hand, subsequent encounter Screening for osteoporosis- Primary Special screening [...] Discontinue Reason Start Date End Da te methadone (DOLOPHINE) 5 mg tabletIndications:Neurodiagnostic Technologist majo pain syndrome,Cervicalgia,C hronic knee pain, unspecified laterality,Chronic back pain Take 0.5 Tabs by mouth at bedtime Daily Max: 2.5 mg Patient Stopped Taking 09/09/2015 12/26/2015 zolpidem (AMBIEN) 5 mg tabletIndications:Inso mnia, unspecified type TAKE 1 TABLET BY MOUTH NIGHTLY AT BEDTIME NEEDED Reorder 10/24/2015 12/26/2015 HYDROcodone-acetaminop hen (NORCO) 5-325 mg tabletIndications:Neurodiagnostic Technologist majo pain syndrome,Cervicalgia,C hronic knee pain, unspecified laterality,Chronic back pain Take 1-2 Tabs by mouth every 6 hours as needed for up to 28 days for Pain Earliest Fill Date: 11/01/15 Daily Max: 8 Tabs Reorder 11/01/2015 12/26/2015 HYDROcodone-acetaminop hen (NORCO) 5-325 mg tabletIndications:Neurodiagnostic Technologist majo pain syndrome,Cervicalgia,C hronic knee pain, unspecified laterality,Chronic back pain Take 1-2 Tabs by mouth every 6 hours as needed for up to 28 days for Pain Earliest Fill Date: 10/04/15 Daily Max: 8 Tabs Reorder 10/04/2015 12/26/2015 documented as of this encounter Care Teams First Coat Operator Relationship Specialty Start Date End Date Jean Munoz MD [address] [place] [phone] PCP - General 12/31/08 Manny Rizzo MD [address] [place] [phone] 04/20/10 documented as of this encounter
--- OUTSIDE RECORDS SUMMARY | 2024-06-10 07:23 | XMS_ITS | Encounter Summary ---
Author Organization [facility] Address [address] [place] [address] Care Team Providers Care Fourchette Sewer Name Role Phone Jean Munoz MD Primary Care Provider Manny Rizzo MD Unavailable Reason for Visit * Reason Onset Date Comments Medications Refill 04/06/2016 Encounter Details Date Type Department Care Team (Late st Contact Info) Description 04/06/2016 Telephone [facility] Sleep Program - [address] [phone] Tiana Bacon [address] [place] [address] Medications Refill Social History Tobacco [...] mouth in the morning. 60 Tab 0 04/06/2016 05/06/2016 methylphenidate (RITALIN;METHYLIN) 10 mg tablet Take one tab in the afternoon for narcolepsy. 30 Tab 0 04/06/2016 05/06/2016 documented in this encounter Miscellaneous Notes * Telephone Encounter - Barbara Gimenez - 04/06/2016 1219 EDT PT needs refill on Ritalin 20mg and Ritalin 10mg. 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 PT is going out of town on , so needs to fill by Wednesday at the latest. documented in this encounter Plan of Treatment Upcoming Encounters Date Type Department Care Team (Late st Contact Info) Description 06/29/2024 14:15 EDT Office Visit [facility] Medicine [facility] [address] [place] [address] Jean Munoz MD [address] [place] [address] documented as of this encounter Visit Diagnoses Not on filedocumented in this encounter Discontinued Medications Medication Sig Discontinue Reason Start Date End Da te methylphenidate (RITALIN;METHYLIN) 10 mg tablet Take one tab in the afternoon for narcolepsy. Earliest Fill Date: 03/12/16 Reorder 03/12/2016 04/06/2016 methylphenidate (RITALIN;METHYLIN) 20 mg tablet Take 2 tabs by mouth in the morning. Earliest Fill Date: 03/12/16 Reorder 03/12/2016 04/06/2016 documented as of this encounter Care Teams Fourchette Sewer Relationship Specialty Start Date End Date Jean Munoz MD [address] [place] [phone] PCP - General 12/31/08 Manny Rizzo MD [address] [place] [phone] 04/20/10 documented as of this encounter
--- OUTSIDE RECORDS SUMMARY | 2024-06-10 07:23 | XMS_ITS | Encounter Summary ---
Author Organization [facility] Address [address] [place] [address] Care Team Providers Care Parts Identifier Name Role Phone Jean Munoz MD Primary Care Provider Manny Rizzo MD Unavailable Reason for Visit * Reason Onset Date Comments Appointment Related 01/14/2016 Encounter Details Date Type Department Care Team (Late st Contact Info) Description 01/14/[address], [facility] [address] [place], [place] [id number] Cht, Admin Appointment Related Social History Tobacco [...] * Telephone Encounter - Jennifer Brink - 01/14/2016 1051 EDT Pt was NOS for her CHT appt w/ Claudia Pro, which was sched for 01.13.16 at [facility]. Appt was sched per paper referral from [facility]. Admin will attempt to resched. documented in this encounter Plan of Treatment Upcoming Encounters Date Type Department Care Team (Late st Contact Info) Description 06/29/2024 14:15 EDT Office Visit [facility] [address] [place], [place] [phone] Jean Munoz MD [address] [place] [address] documented as of this encounter Visit Diagnoses Not on filedocumented in this encounter Care Teams Parts Identifier Relationship Specialty Start Date End Date Jean Munoz MD [address] [place] [address] PCP - General 12/31/08 Manny Rizzo MD [address] [place] [phone] 04/20/10 documented as of this encounter
--- OUTSIDE RECORDS SUMMARY | 2024-06-10 07:23 | XMS_ITS | Encounter Summary ---
Author Organization [facility] Address [address] [place] [address] Care Team Providers Care Printed Circuit Board Layout Designer Name Role Phone Jean Munoz MD Primary Care Provider Manny Rizzo MD Unavailable Reason for Visit * Reason Comments Other Encounter Details Date Type Department Care Team (Late st Contact Info) Description 03/07/2016 [facility] 3 [place] [address] Jan Lott MD [address] [place] [address] Other Social History Tobacco Use [...] 14:15 EDT Office Visit [facility] [address] [place], [place] [phone] Jean Munoz MD [address] [place] [phone] documented as of this encounter Visit Diagnoses Not on filedocumented in this encounter Care Teams Printed Circuit Board Layout Designer Relationship Specialty Start Date End Date Jean Munoz MD [address] [place] [phone] PCP - General 12/31/08 Manny Rizzo MD [address] [place] [address] 04/20/10 documented as of this encounter
--- OUTSIDE RECORDS SUMMARY | 2024-06-10 07:23 | XMS_ITS | Encounter Summary ---
Author Organization [facility] Address [address] [place] [address] Care Team Providers Care Clipper Machine Operator Name Role Phone Jean Munoz MD Primary Care Provider Manny Rizzo MD Unavailable Reason for Visit * Reason Onset Date Comments Medications Refill 03/11/2016 Encounter Details Date Type Department Care Team (Late st Contact Info) Description 03/10/[address] [phone] Yadira Mccauley, CHRIS Medications Refill Social History Tobacco Use Types [...] Daily Max: 5 mg 28 Tab 1 03/10/2016 04/13/2016 documented in this encounter Miscellaneous Notes * Telephone Encounter - Yadira Mccauley RN - 03/10/2016 3941 EDT Medication(s) Requested: ambsarah 5 [facility]: [facility] Last Refill Date: 12/27/15 Last Visit Date: 02/20/16 Next Visit Date: 04/13/2016 Is patient out of medication? unknown Yadira Mccauley RN 03/10/2016 14:46 * Telephone Encounter - aYdira Mccauley RN - 03/10/2016 5336 EDT ----- Message from Kaitlyn Montero LPN sent at 03/10/2016 14:39 EDT ----- Regarding: Medication refill Called patient regarding a prior Auth, and she also stated that she sent a refill request in for her Zolpidem and hasn't heard anything about it being refilled. Not sure if it has been refilled or not. Please advise. Thank you! documented in this encounter Plan of Treatment Upcoming Encounters Date Type Department Care Team (Late st Contact Info) Description 06/29/2024 14:15 EDT Office Visit [address] [phone] Jean Munoz MD [address] [place] [address] documented as of this encounter [...] for Sleep. Daily Max: 5 mg Reorder 12/27/2015 03/10/2016 documented as of this encounter Care Teams Clipper Machine Operator Relationship Specialty Start Date End Date Jean Munoz MD [address] [place] [address] PCP - General 12/31/08 Manny Rizzo MD [address] [place] [address] 04/20/10 documented as of this encounter
--- OUTSIDE RECORDS SUMMARY | 2024-06-10 07:23 | XMS_ITS | Encounter Summary ---
Author Organization [facility] Address [address] [place] [address] Care Team Providers Care Artist Model Name Role Phone Jean Munoz MD Primary Care Provider Manny Rizzo MD Unavailable Reason for Visit * Reason Onset Date Comments Medication Questions 05/11/2016 Encounter Details Date Type Department Care Team (Late st Contact Info) Description 05/11/2016 Telephone [facility] 3 [place] [address] Jean Munoz MD [address] [place] [address] Medication Questions Social History Tobacco [...] Telephone Encounter - Jean Munoz MD - 05/11/2016 1402 EDT She has been controlled on alternate nasal steroid, is changing per insurance formulary Can start with 1 spray each nostril if controlled, can increase to 2 if symptoms not controlled, thanks * Telephone Encounter - Kavita Adames - 05/11/2016 1331 EDT Pharmacy calling to confirm directions for Omnaris written 100mcg by nasal route which would be 1 spray per nostril, normal dosage is 2 sprays per nostril please advise documented in this encounter Plan of Treatment Upcoming Encounters Date Type Department Care Team (Late st Contact Info) Description 06/29/2024 14:15 EDT Office Visit [facility] 3 [place] [address] Jean Munoz MD [address] [place] [address] documented as of this encounter Visit Diagnoses Not on filedocumented in this encounter Care Teams Artist Model Relationship Specialty Start Date End Date Jean Munoz MD [address] [place] [phone] PCP - General 12/31/08 Manny Rizzo MD [address] [place] [phone] 04/20/10 documented as of this encounter
--- OUTSIDE RECORDS SUMMARY | 2024-06-10 07:23 | XMS_ITS | Encounter Summary ---
Author Organization [facility] Address [address] [place] [address] Care Team Providers Care Cafe Server Name Role Phone Jean Munoz MD Primary Care Provider Manny Rizzo MD Unavailable Encounter Details Date Type Department Care Team (Late st Contact Info) Description 10/24/2015 Abstract [facility] [address] [place] [address] Jean Munoz MD [address] [place] [address] Social History Tobacco Use Types [...] Office Visit [facility] [address] [place] [address] Jean Munoz MD [address] [place] [phone] documented as of this encounter Visit Diagnoses Not on filedocumented in this encounter Care Teams Cafe Server Relationship Specialty Start Date End Date Jean Munoz MD [address] [place] [phone] PCP - General 12/31/08 Manny Rizzo MD [address] [place] [address] 04/20/10 documented as of this encounter
--- OUTSIDE RECORDS SUMMARY | 2024-06-10 07:23 | XMS_ITS | Encounter Summary ---
Author Organization [facility] Address [address] [place] [address] Care Team Providers Care Remedial Project Manager Name Role Phone Jean Munoz MD Primary Care Provider Manny Rizzo MD Unavailable Reason for Visit * Reason Onset Date Comments Medication Questions 04/13/2016 Encounter Details Date Type Department Care Team (Late st Contact Info) Description 04/13/2016 Telephone [facility] 3 [place] [address] Jean Munoz MD [address] [place] [address] Medication Questions Social History Tobacco [...] (HCC-CMS) Take 2 Tabs by mouth daily. 180 Tab 3 04/13/2016 05/22/2017 documented in this encounter Miscellaneous Notes * Telephone Encounter - Yadira Mccauley RN - 04/14/2016 0909 EDT Pharmacy calling back; wondering diagnosis for why pt is on flomax. Notified Susan per script: Hesitancy (R39.11) * Telephone Encounter - Vanessa Wade - 04/14/2016 0908 EDT Susan calling back * Telephone Encounter - Yadira Mccauley RN - 04/13/2016 1753 EDT Notify Susan at the pharmacy. * Telephone Encounter - Jean Munoz MD - 04/13/2016 1735 EDT Sertraline dose is 100 mg 2 tabs daily, new script done Aware of interaction, will monitor * Telephone Encounter - Kavita Adames - 04/13/2016 1609 EDT Pharmacy calling, sertraline has two different directions please clarify Sumatriptan - concern about drug interaction with sertraline Please advise documented in this encounter Plan of Treatment Upcoming Encounters Date Type Department Care Team (Late st Contact Info) Description 06/29/2024 14:15 EDT Office Visit [facility] [address] [place], [place] [phone] Jean Munoz MD [address] [place] [phone] documented as of this encounter Visit Diagnoses Diagnosis Major depressive disorder, recurrent, severe without psychotic features (HCC-CMS)- Primary Major depressive disorder, recurrent episode, severe, without [...] severe without psychotic features (HCC-CMS) Take 1 Tab by mouth daily. TAKE TWO TABLETS BY MOUTH DAILY Reorder 04/13/2016 04/13/2016 documented as of this encounter Care Teams Remedial Project Manager Relationship Specialty Start Date End Date Jean Munoz MD [address] [place] [phone] PCP - General 12/31/08 Manny Rizzo MD [address] [place] [address] 04/20/10 documented as of this encounter
--- OUTSIDE RECORDS SUMMARY | 2024-06-10 07:23 | XMS_ITS | Encounter Summary ---
Author Organization [facility] Address [address] [place] [address] Care Team Providers Care Forest Worker Name Role Phone Jean Munoz MD Primary Care Provider Manny Rizzo MD Unavailable Reason for Visit * Reason Onset Date Comments Medications Refill 05/06/2016 Encounter Details Date Type Department Care Team (Late st Contact Info) Description 05/06/2016 Telephone [facility] - [address] [phone] Tiana Bacon [address] [place] [address] Medications Refill Social History Tobacco [...] afternoon for narcolepsy. Earliest Fill Date: 05/06/16 30 Tab 05/06/2016 06/03/2016 methylphenidate (RITALIN;METHYLIN) 20 mg tablet Take 2 tabs by mouth in the morning. 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 documented in this encounter Plan of Treatment Upcoming Encounters Date Type Department Care Team (Late st Contact Info) Description 06/29/2024 14:15 EDT Office Visit [facility] [address] [place] [address] Jean Munoz MD [address] [place] [address] documented as of this encounter Visit Diagnoses Not on filedocumented in this encounter Discontinued Medications Medication Sig Discontinue Reason Start Date End Da te methylphenidate (RITALIN;METHYLIN) 20 mg tablet Take 2 tabs by mouth in the morning. Reorder 04/06/2016 05/06/2016 methylphenidate (RITALIN;METHYLIN) 10 mg tablet Take one tab in the afternoon for narcolepsy. Reorder 04/06/2016 05/06/2016 documented as of this encounter Care Teams Forest Worker Relationship Specialty Start Date End Date Jean Munoz MD [address] [place] [address] PCP - General 12/31/08 Manny Rizzo MD [address] [place] [address] 04/20/10 documented as of this encounter
--- OUTSIDE RECORDS SUMMARY | 2024-06-10 07:23 | XMS_ITS | Encounter Summary ---
Author Organization [facility] Address [address] [place] [address] Care Team Providers Care Clinical Science Liaison Name Role Phone Jean Munoz MD Primary Care Provider Manny Rizzo MD Unavailable Reason for Visit * Reason Onset Date Comments Medications Refill 01/13/2016 Encounter Details Date Type Department Care Team (Late st Contact Info) Description 01/13/[address] [facility] - [address] [phone] Tiana Bacon [address] [place] [phone] Medications Refill Social History Tobacco Use [...] Earliest Fill Date: 01/13/16 30 Tab 0 01/13/2016 02/04/2016 methylphenidate (RITALIN;METHYLIN) 20 mg tablet Take 2 tabs by mouth in the morning. 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 * Telephone Encounter - Barbara Gimenez - 01/13/2016 0910 EDT PT needs refill on Ritalin 20mg and Ritalin 10mg. 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 documented in this encounter Plan of Treatment Upcoming Encounters Date Type Department Care Team (Late st Contact Info) Description 06/29/2024 14:15 EDT Office Visit [facility] 3 [place] [address] Jean Munoz MD [address] [place] [phone] documented as of this encounter Visit Diagnoses Not on filedocumented in this encounter Discontinued Medications Medication Sig Discontinue Reason Start Date End Da te methylphenidate (RITALIN;METHYLIN) 20 mg tablet Take 2 tabs by mouth in the morning. Reorder 12/16/2015 01/13/2016 methylphenidate (RITALIN;METHYLIN) 10 mg tablet Take one tab in the afternoon for narcolepsy Earliest Fill Date: 12/16/15 Reorder 12/16/2015 01/13/2016 documented as of this encounter Care Teams Clinical Science Liaison Relationship Specialty Start Date End Date Jean Munoz MD [address] [place] [phone] PCP - General 12/31/08 Manny Rizzo MD [address] [place] [phone] 04/20/10 documented as of this encounter
--- OUTSIDE RECORDS SUMMARY | 2024-06-10 07:23 | XMS_ITS | Encounter Summary ---
Author Organization [facility] Address [address] [place] [address] Care Team Providers Care Head Track Coach Name Role Phone Jean Munoz MD Primary Care Provider Manny Rizzo MD Unavailable Reason for Visit * Reason Comments Other Encounter Details Date Type Department Care Team (Late st Contact Info) Description 03/07/2016 [facility] 3 [place] [address] Jean Munoz MD [address] [place] [phone] Other Social History Tobacco Use Types [...] End Da te doxycycline (VIBRAMYCIN) 100 mg capsule TAKE ONE CAPSULE BY MOUTH ONE TIME DAILY 30 Cap 0 03/09/2016 04/13/2016 documented in this encounter Miscellaneous Notes * Telephone Encounter - Hermelinda Pace - 03/09/2016 1345 EDT Medication(s) Requested: doxycycline Pharmacy: [facility] Last Refill Date: 01/17/16 Last Visit Date: 02/20/16 Next Visit Date: 04/13/16 Is patient out of medication? unknown Hermelinda Pace RN 03/09/2016 13:45 documented in this encounter Plan of Treatment Upcoming Encounters Date Type Department Care Team (Late st Contact Info) Description 06/29/2024 14:15 EDT Office Visit [facility] 3 [place] [address] Jean Munoz MD [address] [place] [address] documented as of this encounter Visit Diagnoses Not on filedocumented in this encounter Discontinued Medications Medication Sig Discontinue Reason Start Date End Da te doxycycline (VIBRA-TABS) 100 mg tabletIndications:Rosace a Take 1 tablet by mouth every day Reorder 01/17/2016 03/07/2016 documented as of this encounter Care Teams Head Track Coach Relationship Specialty Start Date End Date Jean Munoz MD [address] [place] [address] PCP - General 12/31/08 Manny Rizzo MD [address] [place] [phone] 04/20/10 documented as of this encounter
--- OUTSIDE RECORDS SUMMARY | 2024-06-10 07:23 | XMS_ITS | Encounter Summary ---
Author Organization [facility] Address [address] [place] [address] Care Team Providers Care Prop Drawer Name Role Phone Jean Munoz MD Primary Care Provider Manny Rizzo MD Unavailable Reason for Visit * Reason Onset Date Comments Appointment Related 01/08/2016 Encounter Details Date Type Department Care Team (Late st Contact Info) Description 01/08/[address], [facility] [address] [place] [address] Cht, Admin Appointment Related Social History Tobacco [...] * Telephone Encounter - Jennifer Brink - 01/08/2016 1341 EDT T received a hard copy referral from [facility]. Pt is sched w/ Claudia Pro on 01.13.16 at 11am at [facility]. documented in this encounter Plan of Treatment Upcoming Encounters Date Type Department Care Team (Late st Contact Info) Description 06/29/2024 14:15 EDT Office Visit [facility] [address] [place], [place] [phone] Jean Munoz MD [address] [place] [phone] documented as of this encounter Visit Diagnoses Not on filedocumented in this encounter Care Teams Prop Drawer Relationship Specialty Start Date End Date Jean Munoz MD [address] [place] [phone] PCP - General 12/31/08 Manny Rizzo MD [facility] [place] [phone] 04/20/10 documented as of this encounter
--- OUTSIDE RECORDS SUMMARY | 2024-06-10 07:23 | XMS_ITS | Encounter Summary ---
Author Organization [facility] Address [address] [place] [address] Care Team Providers Care Cook Night Name Role Phone Jean Munoz MD Primary Care Provider Manny Rizzo MD Unavailable Reason for Visit * Reason Comments Social Work Encounter Details Date Type Department Care Team (Late st Contact Info) Description 01/13/2016 Community Health Team [facility] 3 [place] [address] Claudia Pro V, POST COMMANDER [address] [place] [address] Social History Tobacco Use Types [...] Progress Notes * Claudia Pro LICSW - 01/13/2016 1122 EDT Patient did not arrive for scheduled appointment with [employer] Straight[employer]. Phone call to patient stated she was having transportation issue and wishes to reschedule. Advised Admin Team would reach out for same. .. [facility], [address] [place] [address] Total Time: 5 min Referral: n/a Follow up: Admin Status: Active documented in this encounter Plan of Treatment Upcoming Encounters Date Type Department Care Team (Late st Contact Info) Description 06/29/2024 14:15 EDT Office Visit [address] [address] Jean Munoz MD [address] [place] [phone] documented as of this encounter Visit Diagnoses Not on filedocumented in this encounter Care Teams Cook Night Relationship Specialty Start Date End Date Jean Munoz MD [address] [place] [phone] PCP - General 12/31/08 Manny Rizzo MD [address] [place] [phone] 04/20/10 documented as of this encounter
--- OUTSIDE RECORDS SUMMARY | 2024-06-10 07:23 | XMS_ITS | Encounter Summary ---
Author Organization [facility] Address [address] [place] [address] Care Team Providers Care Wanigan Clerk Name Role Phone Jean Munoz MD Primary Care Provider Manny Rizzo MD Unavailable Reason for Visit * Reason Onset Date Comments Other 12/18/2015 Encounter Details Date Type Department Care Team (Late st Contact Info) Description 12/18/2015 Telephone [facility] [address] [place] [address] Jean Munoz MD [address] [place] [phone] Other Social History Tobacco Use Types [...] Telephone Encounter - Kavita Adames - 12/18/2015 1417 EDT Letter faxed * Telephone Encounter - Jean Munoz MD - 12/18/2015 1337 EDT Letter done * Telephone Encounter - Kamila Garcia RN - 12/18/2015 1320 EDT Noted. Letter pended * Telephone Encounter - Kavita Adames - 12/18/2015 1306 EDT Pt requesting letter to [facility], [facility] electric was turned off this am Fax to [phone] Letter pended documented in this encounter Plan of Treatment Upcoming Encounters Date Type Department Care Team (Late st Contact Info) Description 06/29/2024 14:15 EDT Office Visit [facility] [address] [place], [place] [phone] Jean Munoz MD [address] [place] [address] documented as of this encounter Visit Diagnoses Not on filedocumented in this encounter Care Teams Wanigan Clerk Relationship Specialty Start Date End Date Jean Munoz MD [address] [place] [phone] PCP - General 12/31/08 Manny Rizzo MD [address] [place] [phone] 04/20/10 documented as of this encounter
--- OUTSIDE RECORDS SUMMARY | 2024-06-10 07:23 | XMS_ITS | Encounter Summary ---
Author Organization [facility] Address [address] [place] [address] Care Team Providers Care Sewer Inspector Name Role Phone Jean Munoz MD Primary Care Provider Manny Rizzo MD Unavailable Reason for Visit * Reason Comments Medication Management Refills for multip le prescriptions. Encounter Details Date Type Department Care Team (Late st Contact Info) Description 04/13/2016 14:45 EDT Office Visit [facility] [address] [place] [address] Jean Munoz MD [address] [place] [address] Chronic pain syndrome (Primary Dx); Chronic low back pain, unspecified back pain laterality, with sciatica presence unspecified; Chronic knee pain, unspecified laterality; Cervicalgia; Seasonal allergic rhinitis; Chronic obstructive pulmonary disease, unspecified COPD type (CMS-HCC) ([facility]); Gastroesophageal reflux disease, esophagitis presence not specified; Moderate persistent asthma without complication; Major depressive disorder, recurrent, severe without psychotic features (CMS-HCC); Hesitancy; Restless legs syndrome; Other type of migraine; Insomnia, unspecified type; Rosacea; Nausea Social History Tobacco Use Types Packs/Day Years [...] Sign Reading Time Taken Comments Blood Pressure 110/68 04/13/2016 1441 EDT Pulse 72 04/13/2016 1441 EDT Temperature 36.1 ??C (97 ??F) 04/13/2016 1441 EDT Respiratory Rate 20 04/13/2016 1441 EDT Oxygen Saturation - - Inhaled Oxygen Concentration - - Weight 88.5 kg (195 lb 3.2 oz) 04/13/2016 1441 E DT Height - - Body Mass Index 33.51 02/20/2016 1145 EDT documented in this encounter [...] 5 mg 28 Tab 4 05/11/2016 10/01/2016 ondansetron (ZOFRAN) 4 mg tabletIndications:Naus ea TAKE ONE TABLET BY MOUTH DAILY NEEDED for nausea 30 Tab 3 04/13/2016 06/01/2017 sumatriptan (IMITREX) 50 mg tabletIndications:Othe r type of migraine Take 1 tablet by mouth as needed for migraine. Daily maximum dose: 100 mg. Patient averages 12 headaches per month. 9 Tab 2 04/13/2016 10/01/2016 rOPINIRole (REQUIP) 2 mg tabletIndications:Rest less legs syndrome Take 1 Tab by mouth at bedtime. TAKE ONE TABLET BY MOUTH AT BEDTIME 90 Tab 3 04/13/2016 05/22/2017 tamsulosin (FLOMAX) 0.4 mg capsuleIndications:Hes itancy Take 1 Cap by mouth daily. 90 Cap 3 04/13/2016 06/01/2017 sertraline (ZOLOFT) 100 mg tabletIndications:Loida r depressive disorder, recurrent, severe without psychotic features ([facility]) Take 1 Tab by mouth daily. TAKE TWO TABLETS BY MOUTH DAILY 180 Tab 3 04/13/2016 04/13/2016 montelukast (SINGULAIR) 10 mg tabletIndications:Mode rate persistent asthma without complication Take 1 Tab by mouth daily. 90 Tab 3 04/13/2016 05/22/2017 fexofenadine (JUDITH) 180 mg tabletIndications:Seas onal allergic rhinitis Take 1 Tab by mouth daily. 90 Tab 3 04/13/2016 04/15/2017 omeprazole (PRILOSEC) 40 mg capsuleIndications:Gas troesophageal reflux disease, esophagitis presence not specified Take 1 Cap by mouth daily. 90 Cap 3 04/13/2016 06/01/2017 tiotropium bromide (SPIRIVA RESPIMAT) 1.25 mcg/actuation mistIndications:Chroni c obstructive pulmonary disease, unspecified COPD type ([facility]) Inhale 2.5 mcg as directed daily. 12 g 3 04/13/2016 03/04/2017 baclofen (LIORESAL) 10 mg tabletIndications:Calenderer majo pain syndrome Take 1 Tab by mouth 3 times daily as needed (mucles tightness). 180 Tab 3 04/13/2016 06/01/2017 roflumilast (DALIRESP) 500 mcg tabletIndications:Calenderer majo obstructive pulmonary disease, unspecified COPD type ([facility]) Take 1 Tab by mouth daily. 90 Tab 3 04/13/2016 04/14/2017 mometasone (NASONEX) 50 mcg/actuation nasal sprayIndications:Seaso nal allergic rhinitis Instill 2 Sprays into both nostrils daily. 3 Inhaler 1 04/13/2016 05/08/2016 levalbuterol (XOPENEX HFA) 45 mcg/actuation inhalerIndications:Mod erate persistent asthma without complication INHALE TWO PUFFS BY MOUTH EVERY SIX HOURS NEEDED 3 Inhaler 3 04/13/2016 05/22/2017 ipratropium-albuterol (DUONEB) 0.5 mg-3 mg(2.5 mg base)/3 mL nebulizer solutionIndications:Mo derate persistent asthma without complication Take 3 mL by nebulization every 4 hours as needed for Wheezing. 3 mL 3 04/13/2016 06/01/2017 fluticasone-salmeterol (ADVAIR HFA) 230-21 mcg/actuation inhalerIndications:Mod erate persistent asthma without complication INHALE TWO PUFFS BY MOUTH TWICE DAILY as directed 3 Inhaler 3 04/13/2016 03/03/2017 doxycycline (VIBRAMYCIN) 100 mg capsuleIndications:Ros acea TAKE ONE CAPSULE BY MOUTH ONE TIME DAILY 90 Cap 3 04/13/2016 04/14/2017 pregabalin (LYRICA) 300 mg capsuleIndications:Chr onic low back pain, unspecified back pain laterality, with sciatica presence unspecified Take 1 Cap by mouth 2 times daily. Daily Max: 600 mg 60 Each 5 04/13/2016 11/14/2016 HYDROcodone-acetaminop hen (NORCO) 5-325 mg tabletIndications:Calenderer majo pain syndrome,Cervicalgia,C hronic knee pain, unspecified laterality Take 1-2 Tabs by mouth every 6 hours as needed for up to 28 days for Pain. Earliest Fill Date: 04/16/16 Daily Max: 8 Tabs 112 Tab 0 04/16/2016 07/01/2016 HYDROcodone-acetaminop hen (NORCO) 5-325 mg tabletIndications:Calenderer majo pain syndrome,Chronic knee pain, unspecified laterality Take 1-2 Tabs by mouth every 6 hours as needed for up to 28 days for Pain. Earliest Fill Date: 05/14/16 Daily Max: 8 Tabs 112 Tab 0 05/14/2016 07/01/2016 HYDROcodone-acetaminop hen (NORCO) 5-325 mg tabletIndications:Calenderer majo pain syndrome,Chronic knee pain, unspecified laterality Take 1-2 Tabs by mouth every 6 hours as needed for up to 28 days for Pain. Earliest Fill Date: 06/11/16 Daily Max: 8 Tabs 112 Tab 0 06/11/2016 07/01/2016 documented in this encounter Progress Notes * Jean Munoz MD - 04/13/2016 1504 EDT Subjective: Patient ID: Liset Viera is an 55 y.o. female. Chief Complaint Patient presents with ??? Medication Management Refills for multiple prescriptions. HPI Spot Nose 4-5 months Itches No bleeding Also neck pain Worse recently No weakness arms No tingling, numbness Has had surgery in past States pain at location of hardware states take ibuprofen, intolerant of gabapentin, low dose, took only 3 times Patient Active Problem List Diagnosis ??? Severe [...] to Visit Medication Sig Dispense Refill ??? cycloSPORINE (RESTASIS) 0.05 % ophthalmic emulsion Place 1 Drop into both eyes 2 times daily ??? docusate sodium (COLACE) 100 mg capsule Take 1 Cap by mouth 2 times daily as needed for Constipation. ??? HYDROcodone-acetaminophen (NORCO) 5-325 mg tablet Take 1 Tab by mouth 4 times daily for 11 daysEarliest Fill Date: 09/23/15 Daily Max: 4 Tabs 44 Tab 0 ??? hydroxypropyl methylcellulose (ISOPTO TEARS) 0.5 % ophthalmic solution Place 1 Drop into both eyes 5 times daily. ??? methylphenidate (RITALIN;METHYLIN) 10 mg tablet Take one tab in the afternoon for narcolepsy. 30 Tab 0 ??? methylphenidate (RITALIN;METHYLIN) 20 mg tablet Take 2 tabs by mouth in the morning. 60 Tab 0 No current facility-administered medications on file prior to visit. Allergies Allergen Reactions ??? Toradol [Ketorolac Tromethamine] Hives ??? Motrin [Ibuprofen] Itching Social History Substance Use Topics ??? Smoking status: Former Smoker -- 2.00 packs/day for 35 years Types: Cigarettes Quit date: 10/14/2010 ??? Smokeless tobacco: Never Used ??? Alcohol Use: No Comment: rarely ROS - See HPI Objective: BP 110/68 mmHg Pulse 72 Temp(Src) 36.1 ??C (97 ??F) (Tympanic) Resp 20 Wt 88.542 kg (195 lb3.2 oz) LMP 01/11/1987 Physical Exam uses cane for ambulation Assessment: Plan: Liset was seen today for medication management. Diagnoses and all orders for this visit: Chronic pain syndrome Orders: - HYDROcodone-acetaminophen (NORCO) 5-325 mg tablet; Take 1-2 Tabs by mouth every 6 hours as neededfor up to 28 days for Pain. Earliest Fill Date: 06/11/16 Daily Max: 8 Tabs - HYDROcodone-acetaminophen (NORCO) 5-325 mg tablet; Take 1-2 Tabs by mouth every 6 hours as neededfor up to 28 days for Pain. Earliest Fill Date: 05/14/16 Daily Max: 8 Tabs - HYDROcodone-acetaminophen (NORCO) 5-325 mg tablet; Take 1-2 Tabs by mouth every 6 hours as neededfor up to 28 days for Pain. Earliest Fill Date: 04/16/16 Daily Max: 8 Tabs - baclofen (LIORESAL) 10 mg tablet; Take 1 Tab by mouth 3 times daily as needed (mucles tightness). Chronic low back pain, unspecified back pain laterality, with sciatica presence unspecified Orders: - Increase pregabalin (LYRICA) 300 mg capsule; Take 1 Cap by mouth 2 times daily. Daily Max: 600 mg Chronic knee pain, unspecified laterality Orders: - HYDROcodone-acetaminophen (NORCO) 5-325 mg tablet; Take 1-2 Tabs by mouth every 6 hours as neededfor up to 28 days for Pain. Earliest Fill Date: 06/11/16 Daily Max: 8 Tabs - HYDROcodone-acetaminophen (NORCO) 5-325 mg tablet; Take 1-2 Tabs by mouth every 6 hours as neededfor up to 28 days for Pain. Earliest Fill Date: 05/14/16 Daily Max: 8 Tabs - HYDROcodone-acetaminophen (NORCO) 5-325 mg tablet; Take 1-2 Tabs by mouth every 6 hours as neededfor up to 28 days for Pain. Earliest Fill Date: 04/16/16 Daily Max: 8 Tabs Cervicalgia Will increase pregabalin as above Seasonal allergic rhinitis Orders: - mometasone (NASONEX) 50 mcg/actuation nasal spray; Instill 2 Sprays into both nostrils daily. - fexofenadine (JUDITH) 180 mg tablet; Take 1 Tab by mouth daily. Chronic obstructive pulmonary disease, unspecified COPD type Orders: - roflumilast (DALIRESP) 500 mcg tablet; Take 1 Tab by mouth daily. - tiotropium bromide (SPIRIVA RESPIMAT) 1.25 mcg/actuation mist; Inhale 2.5 mcg as directed daily. - fluticasone-salmeterol (ADVAIR HFA) 230-21 mcg/actuation inhaler; INHALE TWO PUFFS BY MOUTH TWICEDAILY as directed - ipratropium-albuterol (DUONEB) 0.5 mg-3 mg(2.5 mg base)/3 mL nebulizer solution; Take 3 mL by nebulization every 4 hours as needed for Wheezing. - levalbuterol (XOPENEX HFA) 45 mcg/actuation inhaler; INHALE TWO PUFFS BY MOUTH EVERY SIX HOURS ASNEEDED Stable Gastroesophageal reflux disease, esophagitis presence not specified Orders: - omeprazole (PRILOSEC) 40 mg capsule; Take 1 Cap by mouth daily. Moderate persistent asthma without complication Orders: - montelukast (SINGULAIR) 10 mg tablet; Take 1 Tab by mouth daily. - fluticasone-salmeterol (ADVAIR HFA) 230-21 mcg/actuation inhaler; INHALE TWO PUFFS BY MOUTH TWICEDAILY as directed - ipratropium-albuterol (DUONEB) 0.5 mg-3 mg(2.5 mg base)/3 mL nebulizer solution; Take 3 mL by nebulization every 4 hours as needed for Wheezing. - levalbuterol (XOPENEX HFA) 45 mcg/actuation inhaler; INHALE TWO PUFFS BY MOUTH EVERY SIX HOURS ASNEEDED Major depressive disorder, recurrent, severe without psychotic features Orders: - sertraline (ZOLOFT) 100 mg tablet; Take 1 Tab by mouth daily. TAKE TWO TABLETS BY MOUTH DAILY Stable Hesitancy Orders: - tamsulosin (FLOMAX) 0.4 mg capsule; Take 1 Cap by mouth daily. Restless legs syndrome Orders: - rOPINIRole (REQUIP) 2 mg tablet; Take 1 Tab by mouth at bedtime. TAKE ONE TABLET BY MOUTH AT BEDTIME Other type of migraine Orders: - sumatriptan (IMITREX) 50 mg tablet; Take 1 tablet by mouth as needed for migraine. Daily maximum dose: 100 mg. Patient averages 12 headaches per month. Insomnia, unspecified type Orders: - zolpidem (AMBIEN) 5 mg tablet; Take 1 Tab by mouth at bedtime as needed for Sleep. Daily Max: 5 mg Patient has stopped nortriptyline on own due to side effects Sleep controlled with Ambien Rosacea Orders: - doxycycline (VIBRAMYCIN) 100 mg capsule; TAKE ONE CAPSULE BY MOUTH ONE TIME DAILY Nausea Orders: - ondansetron (ZOFRAN) 4 mg tablet; TAKE ONE TABLET BY MOUTH DAILY NEEDED for nausea uses 2x/week Patient Education Topic: as above Method: Verbal Taught to: Patient Barriers: None Outcomes: Verbalized understanding F/U as scheduled documented in this encounter Plan of Treatment Upcoming Encounters Date Type Department Care Team (Late st Contact Info) Description 06/29/2024 14:15 EDT Office Visit [facility] [address] [place], [place] [id number] Jean Munoz MD [address] [place] [address] documented as of this encounter Visit Diagnoses Diagnosis Chronic pain syndrome- Primary Chronic low back pain, unspecified back pain laterality, with sciatica presence unspecified Chronic knee pain, unspecified laterality Cervicalgia Seasonal allergic rhinitis Allergic rhinitis, cause unspecified Chronic obstructive pulmonary disease, unspecified COPD type ([facility]) Gastroesophageal reflux disease, esophagitis presence not specified Moderate persistent asthma without complication Unspecified asthma Major depressive disorder, recurrent, severe without psychotic features ([facility]) Major depressive disorder, recurrent episode, severe, without mention of psychotic behavior Hesitancy Urinary hesitancy Restless legs syndrome Restless legs syndrome (RLS) Other type of migraine Insomnia, unspecified type Rosacea Nausea Nausea alone Screening for osteoporosis- Primary [...] Drop into both eyes 2 times daily. Duplicate Therapy 10/24/2013 04/13/2016 nortriptyline (PAMELOR) 75 mg capsuleIndications:Dep ression Take 1 Cap by mouth daily Patient Stopped Taking 10/04/2015 04/13/2016 HYDROcodone-acetaminop hen (NORCO) 5-325 mg tabletIndications:Calenderer majo pain syndrome,Chronic knee pain, unspecified laterality,Chronic back pain, unspecified back pain laterality, unspecified location Take 1-2 Tabs by mouth every 6 hours as needed for up to 28 days for Pain. Earliest Fill Date: 03/19/16 Daily Max: 8 Tabs Reorder 03/19/2016 04/13/2016 HYDROcodone-acetaminop hen (NORCO) 5-325 mg tabletIndications:Calenderer majo pain syndrome,Chronic knee pain, unspecified laterality,Chronic back pain, unspecified back pain laterality, unspecified location Take 1-2 Tabs by mouth every 6 hours as needed for up to 28 days for Pain. Earliest Fill Date: 02/20/16 Daily Max: 8 Tabs Reorder 02/20/2016 04/13/2016 HYDROcodone-acetaminop hen (NORCO) 5-325 mg tabletIndications:Calenderer majo pain syndrome,Cervicalgia,C hronic knee pain, unspecified laterality,Chronic back pain, unspecified back pain laterality, unspecified location Take 1-2 Tabs by mouth every 6 hours as needed for up to 28 days for Pain. Earliest Fill Date: 12/27/15 Daily Max: 8 Tabs Reorder 12/27/2015 04/13/2016 pregabalin (LYRICA) 150 mg capsuleIndications:Chr onic back pain Take 1 Cap by mouth 3 times daily Daily Max: 450 mg Reorder 10/04/2015 04/13/2016 doxycycline (VIBRAMYCIN) 100 mg capsule TAKE ONE CAPSULE BY MOUTH ONE TIME DAILY Reorder 03/09/2016 04/13/2016 fluticasone-salmeterol (ADVAIR HFA) 230-21 mcg/actuation inhaler INHALE TWO PUFFS BY MOUTH TWICE DAILY as directed Reorder 04/10/2015 04/13/2016 ipratropium-albuterol (DUONEB) 0.5 mg-3 mg(2.5 mg base)/3 mL nebulizer solution Take 3 mL by nebulization every 4 hours as needed for Wheezing Reorder 04/10/2015 04/13/2016 levalbuterol (XOPENEX HFA) 45 mcg/actuation inhaler INHALE TWO PUFFS BY MOUTH EVERY SIX HOURS NEEDED Reorder 04/10/2015 04/13/2016 mometasone (NASONEX) 50 mcg/actuation nasal sprayIndications:Seaso nal allergic rhinitis Instill 2 Sprays into both nostrils daily Reorder 04/10/2015 04/13/2016 roflumilast (DALIRESP) 500 mcg tabletIndications:Calenderer majo obstructive pulmonary disease, unspecified COPD type (HCC-CMS) Take 1 Tab by mouth daily Reorder 04/29/2015 04/13/2016 baclofen (LIORESAL) 10 mg tabletIndications:Calenderer majo pain syndrome Take 1 Tab by mouth 3 times daily as needed (mucles tightness) Reorder 04/29/2015 04/13/2016 tiotropium bromide (SPIRIVA RESPIMAT) 1.25 mcg/actuation mistIndications:Chroni c obstructive pulmonary disease, unspecified COPD type ([facility]) Inhale 2.5 mcg as directed daily Reorder 09/09/2015 04/13/2016 omeprazole (PRILOSEC) 40 mg capsuleIndications:Gas troesophageal reflux disease, esophagitis presence not specified Take 1 Cap by mouth daily Reorder 10/04/2015 04/13/2016 fexofenadine (JUDITH) 180 mg tabletIndications:Seas onal allergic rhinitis Take 1 Tab by mouth daily Reorder 10/04/2015 04/13/2016 montelukast (SINGULAIR) 10 mg tabletIndications:Mode rate persistent asthma without complication Take 1 Tab by mouth daily Reorder 10/04/2015 04/13/2016 sertraline (ZOLOFT) 100 mg tabletIndications:Loida r depressive disorder, recurrent, severe without psychotic features ([facility]) Take 1 Tab by mouth daily TAKE TWO TABLETS BY MOUTH DAILY Reorder 10/04/2015 04/13/2016 tamsulosin (FLOMAX) 0.4 mg capsuleIndications:Hes itancy Take 1 Cap by mouth daily Reorder 10/04/2015 04/13/2016 rOPINIRole (REQUIP) 2 mg tabletIndications:Rest less legs syndrome Take 1 Tab by mouth at bedtime TAKE ONE TABLET BY MOUTH AT BEDTIME Reorder 10/04/2015 04/13/2016 sumatriptan (IMITREX) 50 mg tabletIndications:Othe r type of migraine Take 1 tablet by mouth as needed for migraine. Daily maximum dose: 100 mg. Patient averages 12 headaches per month. Reorder 12/18/2015 04/13/2016 ondansetron (ZOFRAN) 4 mg tablet TAKE ONE TABLET BY MOUTH DAILY NEEDED for nausea Reorder 01/17/2016 04/13/2016 zolpidem (AMBIEN) 5 mg tabletIndications:Inso mnia, unspecified type Take 1 Tab by mouth at bedtime as needed for Sleep. Daily Max: 5 mg Reorder 03/10/2016 04/13/2016 documented as of this encounter Care Teams Sewer Inspector Relationship Specialty Start Date End Date Jean Munoz MD [address] [place] [phone] PCP - General 12/31/08 Manny Rizzo MD [address] [place] [phone] 04/20/10 documented as of this encounter
--- OUTSIDE RECORDS SUMMARY | 2024-06-10 07:23 | XMS_ITS | Encounter Summary ---
Author Organization [facility] Address [address] [place] [address] Care Team Providers Care Doughnut Icer Machine Name Role Phone Jean Munoz MD Primary Care Provider Manny Rizzo MD Unavailable Reason for Visit * Reason Onset Date Comments Prior Auth, Medication 05/26/2016 Lyrica Encounter Details Date Type Department Care Team (Late st Contact Info) Description 05/26/2016 Telephone [facility] [address] [place] [address] Kaitlyn Montero LPN [address] [place] [address] Prior Auth, Medication (Lyrica ) Social History [...] Telephone Encounter - Kaitlyn Montero LPN - 05/27/2016 1003 EDT Medication: Lyrica Insurance Co: [place] Medicaid Approval # (if applicable): [id number] Approval dates: 05/26/2016-05/26/2017 Name of Pharmacy notified: [facility] Called pharmacy notifying them of PA approval. Per Susan at the pharmacy she will call patient when medication is ready. * Telephone Encounter - Kaitlyn Montero LPN - 05/26/2016 0941 EDT PA sent to insurance. Waiting for response. documented in this encounter Plan of Treatment Upcoming Encounters Date Type Department Care Team (Late st Contact Info) Description 06/29/2024 14:15 EDT Office Visit [facility] [address] [place] [address] Jean Munoz MD [address] [place] [phone] documented as of this encounter Visit Diagnoses Not on filedocumented in this encounter Care Teams Doughnut Icer Machine Relationship Specialty Start Date End Date Jean Munoz MD [address] [place] [phone] PCP - General 12/31/08 Manny Rizzo MD [address] [place] [phone] 04/20/10 documented as of this encounter
--- OUTSIDE RECORDS SUMMARY | 2024-06-10 07:23 | XMS_ITS | Encounter Summary ---
Author Organization [facility] Address [address] [place] [address] Care Team Providers Care Synthetic Filament Spinner Name Role Phone Jean Munoz MD Primary Care Provider Manny Rizzo MD Unavailable Encounter Details Date Type Department Care Team (Late st Contact Info) Description 06/08/[address] [facility] Medicine [facility] [address] [place] [address] Jean Munoz MD [address] [place] [phone] Social History Tobacco Use Types [...] [facility] [address] [place] [address] Jean Munoz MD [address] [place] [phone] documented as of this encounter Procedures Procedure Name Priority Date/Time Associated Diagnosis Comments MA 2D/3D BILATERAL ROYCE ROUTINE SCREENING MAMMO 06/08/2016 13:51 EDT documented in this encounter Results * MA 2D/3D BILATERAL ROYCE ROUTINE SCREENING MAMMO (06/08/2016 13:51 EDT) Anatomical Region Laterality Modality Other 06/08/2016 13:5 1 EDT 06/09/2016 11:48 EDT Narrative 06/09/2016 11:48 EDT Comparison has been made to previous images. Bilateral Breast Findings: (Routine 3D tomosynthesis with synthesized 2D views with CAD) The breasts are almost entirely fat (less than 25% fibroglandular). No significant masses, calcifications or other abnormalities are seen. IMPRESSION: BILATERAL BREASTS: Negative, no evidence of malignancy. Normal interval follow-up is recommended in 12 months. OVERALL ASSESSMENT - CATEGORY 1 - NEGATIVE END OF IMPRESSION These results will be communicated to your patient via a lay letter from Radiology. If any additional imaging is needed we will contact your patient directly. Procedure Note Deanna Strange MD - 06/09/2016 Comparison has been made to previous images. Bilateral Breast Findings: (Routine 3D tomosynthesis with synthesized 2D views with CAD) The breasts are almost entirely fat (less than 25% fibroglandular). No significant masses, calcifications or other abnormalities are seen. IMPRESSION: BILATERAL BREASTS: Negative, no evidence of malignancy. Normal interval follow-up is recommended in 12 months. OVERALL ASSESSMENT - CATEGORY 1 - NEGATIVE END OF IMPRESSION These results will be communicated to your patient via a lay letter from Radiology. If any additional imaging is needed we will contact your patient directly. Jean Munoz MD IMG MAMMOGRAPHY ORDERABLES documented in this encounter Visit Diagnoses Not on filedocumented in this encounter Care Teams Synthetic Filament Spinner Relationship Specialty Start Date End Date Jean Munoz MD [address] [place] [phone] PCP - General 12/31/08 [place] [address] [place] [phone] 04/20/10 documented as of this encounter
--- OUTSIDE RECORDS SUMMARY | 2024-06-10 07:23 | XMS_ITS | Encounter Summary ---
Author Organization [facility] Address [address] [place] [address] Care Team Providers Care Heel Nail Rasper Name Role Phone Jean Munoz MD Primary Care Provider Manny Rizzo MD Unavailable Afia Valle MD Unavailable Jesi Leong MATERIALS MANAGER Unavailable [phone] SaloJesi shanks MATERIALS MANAGER Unavailable Reason for Visit * Reason Comments Other Encounter Details Date Type Department Care Team (Late st Contact Info) Description 10/24/2015 Refill [facility] Family Medicine [facility] [address] [place], [place] [phone] Jean Munoz MD [address] [place] [address] Other Social History Tobacco Use [...] TABLET BY MOUTH NIGHTLY AT BEDTIME NEEDED 30 Tab 1 10/24/2015 12/26/2015 documented in this encounter Miscellaneous Notes * Telephone Encounter - Jean Munoz MD - 10/24/2015 1008 EST Script done, please call in to pharmacy and notify patient, thanks * Telephone Encounter - Lizz Negro RN - 10/24/2015 0940 EST Medication(s) Requested: ambien 5 mg Pharmacy: [facility] Last Refill Date: 06/17/15 Last Visit Date: 10/04/15 Next Visit Date: 12/26/2015 Is patient out of medication? unknown LIZZ NEGRO RN 10/24/2015 9:52 * Telephone Encounter - Kavita Adames - 10/24/2015 0960 EST Pt also calling on this refill. Confirmed [facility] is pharmacy documented in this encounter Plan of Treatment Upcoming Encounters Date Type Department Care Team (Late st Contact Info) Description 06/29/2024 14:15 EDT Office Visit [facility] [facility] [address] [place] [address] Jean Munoz MD [address] [place] [address] documented as of this encounter [...] End Da te zolpidem (AMBIEN) 5 mg tabletIndications:Other insomnia Take 1 Tab by mouth at bedtime as needed for Sleep Daily Max: 1 Tab Reorder 06/17/2015 10/24/2015 documented as of this encounter Additional Health Concerns Infection Onset Date Last Indicated Resolved Time R/O COVID-19 05/15/2022 05/15/2022 05/20/2022 22:1 6 EDT R/O COVID-19 11/14/2022 11/14/2022 11/14/2022 19:1 6 EST documented as of this encounter Care Teams Heel Nail Rasper Relationship Specialty Start Date End Date Jean Munoz MD [address] [place] [address] PCP - General 12/31/08 Manny Rizzo MD [address] [place] [address] 04/20/10 Afia Valle MD [address] [place] [address] 2 [place] [address] MD Care Team Radiation Oncology 07/02/21 Jesi Leong LICSW [address] [place] [phone] Budget Record Clerk 12/24/21 09/20/22 Jesi Leong LICSW [address] [place] [address] Behavioral Health Budget Record ClerkSuperintendent Car Construction Care 10/19/22 01/23/24 documented as of this encounter
--- OUTSIDE RECORDS SUMMARY | 2024-06-10 07:23 | XMS_ITS | Encounter Summary ---
Author Organization [facility] Address [address] [place] [address] Care Team Providers Care Sr. Pricing Analyst Name Role Phone Jean Munoz MD Primary Care Provider Manny Rizzo MD Unavailable Reason for Visit * Reason Onset Date Comments Letter for School/Work 01/09/2016 Encounter Details Date Type Department Care Team (Late st Contact Info) Description 01/09/2016 Telephone [facility] [address] [place] [address] Jean Munoz MD [address] [place] [phone] Letter for School/Work Social History Tobacco [...] * Telephone Encounter - Sapna Dominguez - 01/09/2016 1612 EDT Letter faxed * Telephone Encounter - Jean Munoz MD - 01/09/2016 1000 EDT Letter done * Telephone Encounter - Esha Diaz - 01/09/2016 0909 EDT Reason for Call: Letter for School/Work Summary/Symptoms: Pt calling stating she needs a letter sent to [employer] [facility] to continue her service. Onset and Duration? Appointment Offered? No-letter pended. Please fax to [phone] Esha Diaz 01/09/2016 9:09 documented in this encounter Plan of Treatment Upcoming Encounters Date Type Department Care Team (Late st Contact Info) Description 06/29/2024 14:15 EDT Office Visit [facility] [address] [place] [address] Jean Munoz MD [address] [place] [phone] documented as of this encounter Visit Diagnoses Not on filedocumented in this encounter Care Teams Sr. Pricing Analyst Relationship Specialty Start Date End Date Jean Munoz MD [address] [place] [phone] PCP - General 12/31/08 Manny Rizzo MD [address] [place] [phone] 04/20/10 documented as of this encounter
--- OUTSIDE RECORDS SUMMARY | 2024-06-10 07:23 | XMS_ITS | Encounter Summary ---
Author Organization [facility] Address [address] [place] [address] Care Team Providers Care Commercial Assistant Name Role Phone Jean Munoz MD Primary Care Provider Manny Rizzo MD Unavailable Reason for Visit * Reason Onset Date Comments Medications Refill 11/18/2015 Encounter Details Date Type Department Care Team (Late st Contact Info) Description 11/18/2015 Refill [facility] - [address] [address] Tiana Bacon [address] [place] [phone] Medications Refill Social History Tobacco Use [...] one tab in the afternoon for narcolepsy 30 Tab 0 11/18/2015 12/16/2015 methylphenidate (RITALIN;METHYLIN) 20 mg tablet Take 2 tabs by mouth in the morning. 60 Tab 0 11/18/2015 12/16/2015 documented in this encounter Miscellaneous Notes * Telephone Encounter - Corrina Ac RN - 11/18/2015 1037 EST Spoke with patient and let her know her (ritalin) prescriptions ready for pick pulling machine tender at the Sleep Program. 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 documented in this encounter Plan of Treatment Upcoming Encounters Date Type Department Care Team (Late st Contact Info) Description 06/29/2024 14:15 EDT Office Visit [facility] [address] [place] [address] Jean Munoz MD [address] [place] [phone] documented as of this encounter Visit Diagnoses Not on filedocumented in this encounter Discontinued Medications Medication Sig Discontinue Reason Start Date End Da te methylphenidate (RITALIN;METHYLIN) 20 mg tablet Take 2 tabs by mouth in the morning. Earliest Fill Date: 10/22/15 Reorder 10/22/2015 11/18/2015 methylphenidate (RITALIN;METHYLIN) 10 mg tablet Take one tab in the afternoon for narcolepsy Earliest Fill Date: 10/22/15 Reorder 10/22/2015 11/18/2015 documented as of this encounter Care Teams Commercial Assistant Relationship Specialty Start Date End Date Jean Munoz MD [address] [place] [address] PCP - General 12/31/08 Manny Rizzo MD [address] [place] [address] 04/20/10 documented as of this encounter
--- OUTSIDE RECORDS SUMMARY | 2024-06-10 07:24 | XMS_ITS | Encounter Summary ---
Author Organization [facility] Address [address] [place] [address] Care Team Providers Care Ecosystem Ecology Professor Name Role Phone Jean Munoz MD Primary Care Provider Manny Rizzo MD Unavailable Reason for Visit * Reason Onset Date Comments Medications Refill 07/01/2015 Encounter Details Date Type Department Care Team (Late st Contact Info) Description 07/01/2015 Refill [facility] Sleep Program - [address] [phone] Tiana Bacon [address] [place] [phone] Medications Refill Social History Tobacco Use [...] methylphenidate (RITALIN;METHYLIN) 20 mg tablet Take 2 Tabs by mouth daily Earliest Fill Date: 07/01/15 Daily Max: 2 Tabs 60 Tab 0 07/01/2015 07/29/2015 methylphenidate (RITALIN;METHYLIN) 10 mg tablet Take one tab in the afternoon for narcolepsy Earliest Fill Date: 07/01/15 30 Tab 0 07/01/2015 07/29/2015 documented in this encounter Miscellaneous Notes * Telephone Encounter - Corrina Ac RN - 07/01/2015 1135 EDT Spoke with patient and let her know her (ritalin) prescriptions ready for pickle pumper at the Sleep Center. * Telephone Encounter - Barbara Gimenez - 07/01/2015 0830 EDT PT needs refill on Ritalin 20mg 2 every morning and Ritalin 10mg 1/afternoon. 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 She'll be in town after 1:00 today. documented in this encounter Plan of Treatment Upcoming Encounters Date Type Department Care Team (Late st Contact Info) Description 06/29/2024 14:15 EDT Office Visit [address] [address] Jean Munoz MD [address] [place] [address] documented as of this encounter Visit Diagnoses Not on filedocumented in this encounter Discontinued Medications Medication Sig Discontinue Reason Start Date End Da te methylphenidate (RITALIN;METHYLIN) 10 mg tablet Take one tab in the afternoon for narcolepsy Reorder 06/03/2015 07/01/2015 methylphenidate (RITALIN;METHYLIN) 20 mg tablet Take 2 Tabs by mouth daily Daily Max: 2 Tabs Reorder 06/03/2015 07/01/2015 documented as of this encounter Care Teams Ecosystem Ecology Professor Relationship Specialty Start Date End Date Jean Munoz MD [address] [place] [address] PCP - General 12/31/08 Manny Rizzo MD [address] [place] [address] 04/20/10 documented as of this encounter
--- OUTSIDE RECORDS SUMMARY | 2024-06-10 07:24 | XMS_ITS | Encounter Summary ---
Author Organization [facility] Address [address] [place] [address] Care Team Providers Care Financial Investment Adviser Name Role Phone Jean Munoz MD Primary Care Provider Manny Rizzo MD Unavailable Reason for Visit * Reason Onset Date Comments Medications Refill 12/17/2014 Encounter Details Date Type Department Care Team (Late st Contact Info) Description 12/17/2014 Telephone [facility] Sleep Program - [address] [phone] Tiana Bacon [address] [place] [address] Medications Refill Social History Tobacco [...] Tabs by mouth daily Earliest Fill Date: 12/18/14 Daily Max: 2 Tabs 60 Tab 0 12/18/2014 01/15/2015 methylphenidate (RITALIN;METHYLIN) 10 mg tablet Take one tab in the afternoon for narcolepsy Earliest Fill Date: 12/18/14 30 Tab 0 12/18/2014 01/15/2015 documented in this encounter Miscellaneous Notes * Telephone Encounter - Corrina Ac RN - 12/18/2014 0847 EDT Let pt know (ritalin) prescriptions ready for fish bait picker at the Sleep Center. * Telephone Encounter - Duy Booth - 12/17/2014 1152 EDT Calling to request refills of Ritalin to be picked up on Wednesday. documented in this encounter Plan of Treatment Upcoming Encounters Date Type Department Care Team (Late st Contact Info) Description 06/29/2024 14:15 EDT Office Visit [facility] Family Medicine [facility] [address] [place] [address] Jean Munoz MD [address] [place] [phone] documented as of this encounter Visit Diagnoses Not on filedocumented in this encounter Discontinued Medications Medication Sig Discontinue Reason Start Date End Da te methylphenidate (RITALIN;METHYLIN) 10 mg tablet Take one tab in the afternoon for narcolepsy Earliest Fill Date: 11/19/14 Reorder 11/19/2014 12/17/2014 methylphenidate (RITALIN;METHYLIN) 20 mg tablet Take 2 Tabs by mouth daily Daily Max: 2 Tabs Reorder 11/19/2014 12/17/2014 documented as of this encounter Care Teams Financial Investment Adviser Relationship Specialty Start Date End Date Jean Munoz MD [address] [place] [phone] PCP - General 12/31/08 Manny Rizzo MD [address] [place] [phone] 04/20/10 documented as of this encounter
--- OUTSIDE RECORDS SUMMARY | 2024-06-10 07:24 | XMS_ITS | Encounter Summary ---
Author Organization [facility] Address [address] [place] [address] Care Team Providers Care Cold Food Packer Name Role Phone Jean Munoz MD Primary Care Provider Manny Rizzo MD Unavailable Reason for Visit * Reason Onset Date Comments Prior Auth, Medication 02/14/2015 Xopenex Encounter Details Date Type Department Care Team (Late st Contact Info) Description 02/14/2015 Telephone [facility] [address] [place] [address] Kaitlyn Montero LPN [address] [place] [address] Prior Auth, Medication (Xopenex ) Social History [...] Dispensed Refills Start Date End Da te albuterol 90 mcg/actuation inhalerIndications:Asthm a,Chronic obstructive pulmonary disease ([facility]) Inhale 2 Puffs as directed every 4 hours as needed for Wheezing 1 Inhaler 2 02/15/2015 02/21/2015 documented in this encounter Miscellaneous Notes * Telephone Encounter - Kaitlyn Montero LPN - 02/18/2015 0938 EDT Left message for patient to let her know her prescription is ready for hop picker. * Telephone Encounter - Jean Munoz MD - 02/15/2015 1039 EDT escript done, please notify patient, thanks * Telephone Encounter - Kaitlyn Montero LPN - 02/14/2015 0827 EDT Medication: Xopenex HFA 45MCG Insurance Co.: [place] Medicaid Formulary alternatives needed to try and fail: Pro Air is preferred for medicaid insurance. Pended prescription for Pro Air if appropriate. documented in this encounter Plan of Treatment Upcoming Encounters Date Type Department Care Team (Late st Contact Info) Description 06/29/2024 14:15 EDT Office Visit [address] [phone] Jean Munoz MD [address] [place] [address] documented as of this encounter Visit Diagnoses Diagnosis Asthma- Primary Unspecified asthma Chronic obstructive pulmonary disease (HCC-CMS) Chronic airway obstruction, not elsewhere classified Screening for osteoporosis- Primary Special screening for osteoporosis Primary narcolepsy without cataplexy Chronic pain syndrome Chronic low back pain Lumbago Chronic use of opiate for therapeutic purpose Pain medication agreement Encounter for long-term (current) use of other medications Screen for colon cancer Special screening for malignant neoplasms, colon documented in this encounter Care Teams Cold Food Packer Relationship Specialty Start Date End Date Jean Munoz MD [address] [place] [address] PCP - General 12/31/08 Manny Rizzo MD [address] [place] [address] 04/20/10 documented as of this encounter
--- OUTSIDE RECORDS SUMMARY | 2024-06-10 07:24 | XMS_ITS | Encounter Summary ---
Author Organization [facility] Address [address] [place] [address] Care Team Providers Care Senior Hardware Engineer Name Role Phone Jean Munoz MD Primary Care Provider Manny Rizzo MD Unavailable Reason for Visit * Reason Onset Date Comments Medication Problem 09/16/2015 Encounter Details Date Type Department Care Team (Late st Contact Info) Description 09/16/2015 Refill [facility] [address] [place] [address] Jean Munoz MD [address] [place] [address] Medication Problem Social History Tobacco [...] te HYDROcodone-acetaminophen (NORCO) 5-325 mg tabletIndications:Chronic pain syndrome,Cervicalgia,Barrel Raiser majo knee pain, unspecified laterality,Chronic back pain Take 1 Tab by mouth 4 times daily for 11 days Earliest Fill Date: 09/23/15 Daily Max: 4 Tabs 44 Tab 0 09/23/2015 01/04/2017 documented in this encounter Miscellaneous Notes * Telephone Encounter - Kavita Adames - 09/17/2015 1451 EST Pt phone not working. 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 Spoke with [facility], advised him to discard 09/[address] Munoz will write a new Rx script. * Telephone Encounter - Jean Munoz MD - 09/17/2015 0921 EST Liset has been taking hydrocodone 4 tablets daily over many months (#112 every 4 weeks). At her most recent visit on 09/09 we had discussed tapering this and adding methadone, therefore wehad given prescription for hydrocodone 2 tablets per day (#56 for 4 weeks) However methadone was not covered by insurance, therefore we had intended to give her another script on 09/12 for hydrocodone #112 until her next visit I was not aware that prior hydrocodone prescription from 09/09 had already been filled If 09/12 Rx cannot be filled, she would be due for second script for hydrocodone on 09/23 and shouldbe given enough to last until F/U visit on 10/04 (11 days #44 tabs) I have pended Rx, if that is Ok with Pharmacy I can sign and we can fax to pharmacy and 09/12 Rx should be discarded * Telephone Encounter - Lena Healy RN - 09/16/2015 0754 EST Spoke with patient who states insurance would not pay for methadone. She picked up the [place] script from 09/12/2015 today. She went to pharmacy to get it filled but pharmacy won't let her. Pharmacy states 09/09, patient received 56 tablets with instructions of taking 1 tablet twice daily. New Rx has the instructions of taking 4 tablets daily. Pharmacy asking Dr. Munoz if it's okay to refill medication 10/01/2015 ? Routed to Dr. Munoz for advise. * Telephone Encounter - Sapna Dominguez - 09/16/2015 1650 EST Reason for Call: No chief complaint on file. Summary/Symptoms: Pt states she will be out of vicodin on Wednesday, and pharmacy won't let her refilltill 10/01. She states she needs to take more of the vicodin because insurance won't approve methadone. Please call. Onset and Duration? Appointment Offered? No Sapna Dominguez 09/16/2015 16:55 documented in this encounter Plan of Treatment Upcoming Encounters Date Type Department Care Team (Late st Contact Info) Description 06/29/2024 14:15 EDT Office Visit [facility] [address] [place] [address] Jean Munoz MD [address] [place] [address] documented as of this encounter Visit Diagnoses Diagnosis Chronic pain syndrome- Primary Cervicalgia Chronic knee pain, unspecified laterality Chronic back pain Backache, unspecified Screening for osteoporosis- Primary Special screening [...] 28 days for Pain Earliest Fill Date: 09/12/15 Daily Max: 8 Tabs Reorder 09/12/2015 09/17/2015 documented as of this encounter Care Teams Senior Hardware Engineer Relationship Specialty Start Date End Date Jean Munoz MD [address] [place] [address] PCP - General 12/31/08 Manny Rizzo MD [address] [place] [address] 04/20/10 documented as of this encounter
--- OUTSIDE RECORDS SUMMARY | 2024-06-10 07:24 | XMS_ITS | Encounter Summary ---
Author Organization [facility] Address [address] [place] [address] Care Team Providers Care Customer Engineer Name Role Phone Jean Munoz MD Primary Care Provider Manny Rizzo MD Unavailable Afia Valle MD Unavailable Jesi Leong BULLARD OPERATOR Unavailable SaloJesi shanks BULLARD OPERATOR Unavailable [phone] Reason for Visit * Reason Comments Other Encounter Details Date Type Department Care Team (Late st Contact Info) Description 01/15/2015 Refill [facility] Family Medicine [facility] [address] [place], [place] [phone] Jean Munoz MD [address] [place] [address] Other Social History Tobacco Use [...] End Da te rOPINIRole (REQUIP) 2 mg tabletIndications:Insomni a TAKE ONE TABLET BY MOUTH AT BEDTIME 90 Tab 0 01/15/2015 04/10/2015 doxycycline (VIBRA-TABS) 100 mg tabletIndications:Rosacea TAKE 1 TABLET BY MOUTH EVERY DAY 90 Tab 0 01/15/2015 04/10/2015 documented in this encounter Miscellaneous Notes * Telephone Encounter - Jean Munoz MD - 01/15/2015 1122 EDT escript done, please notify patient, thanks Plan at last visit was PE in 3 months, please schedule in 2 months from now, thanks * Telephone Encounter - Caroline Winter RN - 01/15/2015 1101 EDT Medication(s) Requested: Doxycycline, requip Pharmacy: [facility] Last Refill Date: 12/13/13, 1 year supply Last Visit Date: 12/11/14 Next Visit Date: Visit date not found Is patient out of medication? unknown Routed to PCP. Caroline Winter RN 01/15/2015 11:01 documented in this encounter Plan of Treatment Upcoming Encounters Date Type Department Care Team (Late st Contact Info) Description 06/29/2024 14:15 EDT Office Visit [facility] [address] [place] [address] Jean Munoz MD [address] [place] [address] documented as of this encounter Visit Diagnoses Diagnosis Rosacea- Primary Insomnia Insomnia, unspecified Screening for osteoporosis- Primary Special screening [...] End Da te doxycycline (VIBRA-TABS) 100 mg tabletIndications:Rosacea Take 1 Tab by mouth daily. Reorder 12/13/2013 01/15/2015 rOPINIRole (REQUIP) 2 mg tabletIndications:Restles s legs syndrome Take 1 Tab by mouth at bedtime. Reorder 12/13/2013 01/15/2015 documented as of this encounter Additional Health Concerns Infection Onset Date Last Indicated Resolved Time R/O COVID-19 05/15/2022 05/15/2022 05/20/2022 22:1 6 EDT R/O COVID-19 11/14/2022 11/14/2022 11/14/2022 19:1 6 EST documented as of this encounter Care Teams Customer Engineer Relationship Specialty Start Date End Date Jean Munoz MD [address] [place] [address] PCP - General 12/31/08 Manny Rizzo MD [address] [place] [address] 04/20/10 Afia Valle MD [address] [facility], [address] [place] [phone] MD Care Team Radiation Oncology 07/02/21 Jesi Leong LICSW [address] [place] [address] Fish Machine Feeder 12/24/21 09/20/22 Jesi Leong LICSW [address] [place] [address] Behavioral Health Fish Machine FeederCut Off Worker Care 10/19/22 01/23/24 documented as of this encounter
--- OUTSIDE RECORDS SUMMARY | 2024-06-10 07:24 | XMS_ITS | Encounter Summary ---
Author Organization [facility] Address [address] [place] [address] Care Team Providers Care Oracle Hrms Developer Name Role Phone Jean Munoz MD Primary Care Provider Manny Rizzo MD Unavailable Reason for Visit * Reason Comments Other Encounter Details Date Type Department Care Team (Late st Contact Info) Description 02/04/2015 [facility] [address] [place] [address] Jean Munoz MD [address] [place] [phone] Other Social History Tobacco Use Types [...] End Da te sertraline (ZOLOFT) 100 mg tablet TAKE TWO TABLETS BY MOUTH DAILY 180 Tab 0 02/05/2015 04/10/2015 documented in this encounter Miscellaneous Notes * Telephone Encounter - Alicia Rueda - 02/06/2015 1634 EDT Patient scheduled for PE with Dr. Munoz. Alicia Rueda * Telephone Encounter - Yadira Mccauley RN - 02/05/2015 1006 EDT Medication(s) Requested: zoloft 100 Pharmacy: [facility] Last Refill Date: 12/13/13 Last Visit Date: 12/11/14 Next Visit Date: Visit date not found Is patient out of medication? Unknown Per last OV note: Return in 3 months (on 03/05/2015) for PE. Approved 90 day supply; routed to [facility] to schedule PE Yadira Mccauley RN 02/05/2015 10:06 documented in this encounter Plan of Treatment Upcoming Encounters Date Type Department Care Team (Late st Contact Info) Description 06/29/2024 14:15 EDT Office Visit [facility] [address] [place] [address] Jean Munoz MD [address] [place] [phone] documented as of this encounter Visit Diagnoses Not on filedocumented in this encounter Discontinued Medications Medication Sig Discontinue Reason Start Date End Da te sertraline (ZOLOFT) 100 mg tabletIndications:Depress ion Take 2 Tabs by mouth daily. Reorder 12/13/2013 02/04/2015 documented as of this encounter Care Teams Oracle Hrms Developer Relationship Specialty Start Date End Date Jean Munoz MD [address] [place] [phone] PCP - General 12/31/08 Manny Rizzo MD [address] [place] [address] 04/20/10 documented as of this encounter
--- OUTSIDE RECORDS SUMMARY | 2024-06-10 07:24 | XMS_ITS | Encounter Summary ---
Author Organization [facility] Address [address] [place] [address] Care Team Providers Care Resort Desk Clerk Name Role Phone Jean Munoz MD Primary Care Provider Manny Rizzo MD Unavailable Reason for Visit * Reason Comments Other Encounter Details Date Type Department Care Team (Late st Contact Info) Description 08/20/2015 [facility] [address] [place] [address] Jean Munoz MD [address] [place] [phone] Other Social History Tobacco Use Types [...] as needed for nausea 30 Tab 0 08/20/2015 01/17/2016 documented in this encounter Miscellaneous Notes * Telephone Encounter - Lena Healy RN - 08/20/2015 4744 EST Medication(s) Requested: [facility] Last Refill Date: 04/10/15 Last Visit Date: 06/17/15 Next Visit Date: 09/09/2015 Is patient out of medication? unknown Lena Healy RN 08/20/2015 15:47 documented in this encounter Plan of Treatment Upcoming Encounters Date Type Department Care Team (Late st Contact Info) Description 06/29/2024 14:15 EDT Office Visit [facility] Medicine [facility] [address] [place], [place] [phone] Jean Munoz MD [address] [place] [address] documented as of this encounter Visit Diagnoses Not on filedocumented in this encounter Discontinued Medications Medication Sig Discontinue Reason Start Date End Da te ondansetron (ZOFRAN) 4 mg tablet Take 1 Tab by mouth daily as needed for Nausea Reorder 04/10/2015 08/20/2015 documented as of this encounter Care Teams Resort Desk Clerk Relationship Specialty Start Date End Date Jean Munoz MD [address] [place] [address] PCP - General 12/31/08 Manny Rizzo MD [address] [place] [phone] 04/20/10 documented as of this encounter
--- OUTSIDE RECORDS SUMMARY | 2024-06-10 07:24 | XMS_ITS | Encounter Summary ---
Author Organization [facility] Address [address] [place] [address] Care Team Providers Care Wood Block Artist Name Role Phone Jean Munoz MD Primary Care Provider Manny Rizzo MD Unavailable Reason for Visit * Reason Comments Chronic Pain Medications Refill [place] Encounter Details Date Type Department Care Team (Late st Contact Info) Description 03/01/2015 14:45 EDT Office Visit [facility] Medicine [facility] [address] [place], [place] [id number] Jean Munoz MD [address] [place] [address] Chronic pain syndrome (Primary Dx); Cervicalgia; Fibromyalgia Discharge Disposition: Auto Discharge Social History Tobacco [...] Reading Time Taken Comments Blood Pressure 128/76 03/01/2015 1441 EDT Pulse 72 03/01/2015 1441 EDT Temperature 36.7 ??C (98.1 ??F) 03/01/2015 1441 EDT Respiratory Rate 16 03/01/2015 1441 EDT Oxygen Saturation - - Inhaled Oxygen Concentration - - Weight 92.5 kg (204 lb) 03/01/2015 1441 EDT Height - - Body Mass Index 35 12/11/2014 1443 EDT documented in this encounter Functional Status [...] as of this encounter Discharge Diagnoses Diagnosis 338.4 CHRONIC PAIN SYNDROME[ICD-9-CM] 723.1 CERVICALGIA[ICD-9-CM] 729.1 MYALGIA AND MYOSITIS NOS[ICD-9-CM] documented in this encounter Ordered Prescriptions Prescription Sig Dispensed Refills Start Date End Da te HYDROcodone-acetaminophen (NORCO) 5-325 mg tabletIndications:Chronic pain syndrome,Cervicalgia Take 1-2 Tabs by mouth every 6 hours as needed for up to 28 days for Pain Earliest Fill Date: 03/01/15 Daily Max: 8 Tabs 112 Tab 0 03/01/2015 04/10/2015 HYDROcodone-acetaminophen (NORCO) 5-325 mg tabletIndications:Chronic pain syndrome,Cervicalgia Take 1-2 Tabs by mouth every 6 hours as needed for up to 11 days for Pain Earliest Fill Date: 03/29/15 Daily Max: 8 Tabs 66 Tab 0 03/29/2015 04/10/2015 documented in this encounter Discharge Disposition Disposition Code Departure Means Destination Auto Discharge documented in this encounter Progress Notes * Jean Munoz MD - 03/01/2015 6188 EDT Subjective: Patient ID: Liset Viera is an 54 y.o. female. Chief Complaint Patient presents with ??? Chronic Pain ??? Medications Refill [place] HPI As above COPD/asthma Doing well, breathing stable Insomnia Sleep not too bad Trying not mac use Ambien 2x/week Back pain Variable Also bilateral knee pain Using hydrocodone 4/day Lately has had dental pain, using slightly more and is now nearly out, was due for next Rx next week Also bilateral leg pain distal Onset about 1 month ago Uses requip for RLS No numbness or tingling On further questioning also has widespread muscle pain, fatigue, tender points Last urine test +marijuana, hydromorphone Denies marijuana use but states is around people who use it Patient Active Problem List Diagnosis ??? Severe [...] ??? Senile nuclear sclerosis ??? Tear film insufficiency, unspecified ??? Seasonal allergic rhinitis ??? Lumbar radicular syndrome ??? Menopausal flushing ??? Irritable bowel syndrome (IBS) ??? Rosacea ??? Left knee pain ??? Varicose veins ??? Other complications due to other internal orthopedic device, implant, and graft ??? Degeneration of lumbar or lumbosacral intervertebral disc ??? Hesitancy ??? Dizziness ??? Wears eyeglasses ??? Chronic fatigue ??? Chronic obstructive pulmonary disease ??? Blurry vision, bilateral ??? Pyogenic granuloma of eyelid ??? Other disorders of eyelid(374.89) Past Medical History Diagnosis Date ??? UTI [...] Medication Sig Dispense Refill ??? ADVAIR HFA 230-21 mcg/actuation inhaler INHALE TWO PUFFS BY MOUTH TWICE DAILY as directed 36 g 1 ??? baclofen (LIORESAL) 10 mg tablet Take 1 Tab by mouth 3 times daily as needed (mucles tightness). 180 Tab 0 ??? cycloSPORINE (RESTASIS) 0.05 % ophthalmic emulsion Place 1 Drop into both eyes 2 times daily ??? cycloSPORINE (RESTASIS) 0.05 % ophthalmic emulsion Place 1 Drop into both eyes 2 times daily. 2Tray 11 ??? DALIRESP 500 mcg tablet TAKE ONE TABLET BY MOUTH ONE TIME DAILY 30 Tab 11 ??? docusate sodium (COLACE) 100 mg capsule Take 1 Cap by mouth 2 times daily as needed for Constipation. ??? doxycycline (VIBRA-TABS) 100 mg tablet TAKE 1 TABLET BY MOUTH EVERY DAY 90 Tab 0 ??? fexofenadine (JUDITH) 180 mg tablet Take 1 Tab by mouth daily. 90 Tab 3 ??? HYDROcodone-acetaminophen (NORCO) 5-325 mg tablet Take 1-2 Tabs by mouth every 6 hours as needed for up to 28 days for Pain Earliest Fill Date: 02/06/15 Daily Max: 8 Tabs 112 Tab 0 ??? hydroxypropyl methylcellulose (ISOPTO TEARS) 0.5 % ophthalmic solution Place 1 Drop into both eyes 5 times daily. ??? ipratropium-albuterol (DUONEB) 0.5 mg-3 mg(2.5 mg base)/3 mL nebulizer solution Take 3 mL by nebulization every 4 hours as needed for Wheezing. 3 mL 3 ??? methylphenidate (RITALIN;METHYLIN) 10 mg tablet Take one tab in the afternoon for narcolepsy 30Tab 0 ??? methylphenidate (RITALIN;METHYLIN) 20 mg tablet Take 2 Tabs by mouth daily Earliest Fill Date: 02/12/15 Daily Max: 2 Tabs 60 Tab 0 ??? mometasone (NASONEX) 50 mcg/actuation nasal spray 2 Sprays by nasal route daily. 3 Inhaler 3 ??? montelukast (SINGULAIR) 10 mg tablet TAKE ONE TABLET BY MOUTH ONE TIME DAILY 90 Tab 0 ??? nortriptyline (PAMELOR) 75 mg capsule Take 1 Cap by mouth daily. 90 Each 3 ??? omeprazole (PRILOSEC) 40 mg capsule Take 1 Cap by mouth daily. 90 Cap 3 ??? ondansetron (ZOFRAN) 4 mg tablet Take 1 Tab by mouth daily as needed for Nausea. 30 Tab 1 ??? pregabalin (LYRICA) 150 mg capsule Take 1 Cap by mouth 3 times daily. 270 Each 1 ??? rOPINIRole (REQUIP) 2 mg tablet TAKE ONE TABLET BY MOUTH AT BEDTIME 90 Tab 0 ??? sertraline (ZOLOFT) 100 mg tablet TAKE TWO TABLETS BY MOUTH DAILY 180 Tab 0 ??? SPIRIVA WITH HANDIHALER 18 mcg inhalation capsule INHALE ONE CAP VIA HANDIHALER EVERY DAY DIRECTED 90 Cap 0 ??? sumatriptan (IMITREX) 50 mg tablet take 1 tablet for 1 dose as needed for migraine 9 Tab 2 ??? tamsulosin (FLOMAX) 0.4 mg capsule Take 1 Cap by mouth daily. 90 Cap 3 ??? tamsulosin (FLOMAX) 0.4 mg capsule Take one capsule by mouth every day (take it half an hour after supper) 90 Cap 1 ??? XOPENEX HFA 45 mcg/actuation inhaler INHALE TWO PUFFS BY MOUTH EVERY SIX HOURS NEEDED 45 g 1 ??? zolpidem (AMBIEN) 5 mg tablet Take 1 Tab by mouth at bedtime as needed for Sleep Daily Max: 5 mg 30 Tab 5 No current facility-administered medications on file prior to visit. Allergies Allergen Reactions ??? Toradol [Ketorolac Tromethamine] Hives ??? Motrin [Ibuprofen] Itching Social History Substance Use Topics ??? Smoking status: Former Smoker -- 2.00 packs/day for 35 years Types: Cigarettes Quit date: 10/14/2010 ??? Smokeless tobacco: Never Used ??? Alcohol Use: No Comment: rarely ROS - See HPI Objective: BP 128/76 Pulse 72 Temp(Src) 36.7 ??C (98.1 ??F) (Oral) Resp 16 Wt 92.534 kg (204 lb) LMP01/11/1987 Physical Exam deferred Assessment: Plan: Liset was seen today for chronic pain and medications refill. Diagnoses and associated orders for this visit: Chronic pain syndrome Cervicalgia - HYDROcodone-acetaminophen (NORCO) 5-325 mg tablet; Take 1-2 Tabs by mouth every 6 hours as neededfor up to 11 days for Pain Earliest Fill Date: 03/29/15 Daily Max: 8 Tabs - HYDROcodone-acetaminophen (NORCO) 5-325 mg tablet; Take 1-2 Tabs by mouth every 6 hours as neededfor up to 28 days for Pain Earliest Fill Date: 03/01/15 Daily Max: 8 Tabs - Drug Screen 6; Future - Opiate Confirmation, Urine; Future - Opiate Confirmation, Urine - Drug Screen 6 Hydromorphone likely metabolite Marijuana used discussed, she denies Reported dental pain in context of early request for refill is somewhat concerning Will check urine drug screen and opiate confirmation Rx done for hydromorphone until next visit Fibromyalgia Suspect based on history Already on gabapentin Relative contraindication to opioids Discussed exercise, other med options Will review at next visit Patient Education Topic: as above Method: Verbal Taught to: Patient Barriers: None Outcomes: Verbalized understanding documented in this encounter Plan of Treatment Upcoming Encounters Date Type Department Care Team (Late st Contact Info) Description 06/29/2024 14:15 EDT Office Visit [facility] [address] [place] [address] Jean Munoz MD [address] [place] [address] documented as of this encounter Procedures Procedure Name Priority Date/Time Associated Diagnosis Comments DRUG SCREEN 6 Routine 03/01/2015 15:05 EDT Chronic pain syndrome Cervicalgia OPIATE PANEL CONFIRMATION Routine 03/01/2015 15:05 EDT Chronic pain syndrome Cervicalgia documented in this encounter Results * OPIATE CONFIRMATION, URINE (03/01/2015 15:05 EDT) Conf, Opiates Negative 03/04/2015 7:[address] [facility] Codeine Negative <100 ng/mL 03/04/2015 7:[address] [facility] Hydrocodone Negative <100 ng/mL 03/04/2015 7:[address] [facility] Hydromorphone Negative <100 ng/mL 03/04/2015 7:17 [facility] Morphine Negative <100 ng/mL 03/04/2015 7:17 [facility] Oxycodone Negative <100 ng/mL 03/04/2015 7:17 [facility] Oxymorphone Negative <100 ng/mL 03/04/2015 7:17 [facility] Comment: (Note) ADDITIONAL INFORMATION This report is intended for use in clinical monitoring and management of patients. It is not intended for use in employment-related drug testing. Performed by: [facility], [address] [place] [address], [place] [address], Supervisor [facility]: Liset Dick, Ph.D. Urine specimen (specimen) URINE / Unknown 03/01/2015 15:05 EDT 03/01/2015 18:12 EDT Jean Munoz MD [place] [facility] [address] [place] [address] * DRUG SCREEN 6 (03/01/2015 15:05 EDT) Amphetamine Screen, Urine Negative screen. 03/01/2015 19:[address] [facility] Comment: Confirmation testing available upon request. Suitable for medical purposes only. Will not detect all drugs within class. Cutoff = 1000 ng/ml Specimen type is urine. Barbiturate Screen, Urine Negative screen. 03/01/2015 19:[address] [facility] Comment: Confirmation testing available upon request. Suitable for medical purposes only. Will not detect all drugs within class. Cutoff = 300 ng/ml Specimen type is urine. Benzodiazepine Screen, Urine Negative screen. 03/01/2015 19:[address] [facility] Comment: Confirmation testing available upon request. Suitable for medical purposes only. Will not detect all drugs within class. Assay less sensitive to Lorazepam and metabolites. Cutoff = 200 ng/ml Specimen type is urine. Cannabinoid Scrn, Ur Presumptive positive, interpret with caution. 03/01/2015 19:[address] [facility] Comment: Confirmation testing available upon request. Suitable for medical purposes only. Will not detect all drugs within class. Cutoff = 50 ng/ml Specimen type is urine. Opiate Scrn, Ur Negative screen. 03/01/2015 19:[address] [facility] Comment: Confirmation testing available upon request. Suitable for medical purposes only. Will not detect all drugs within class. Cutoff = 300 ng/ml Assay less sensitive to oxycodone and metabolites. Assay does not detect methadone. Specimen type is urine. Cocaine Metabolites, Ur Negative screen. 03/01/2015 19:[address] [facility] Comment: Confirmation testing available upon request. Suitable for medical purposes only. Will not detect all drugs within class. Cutoff = 300 ng/ml Specimen type is urine. Urine specimen (specimen) URINE / Unknown 03/01/2015 15:05 EDT 03/01/2015 18:13 EDT Jean Munoz MD [place]IS [place] [facility] Organization Address City/State/ZIP Co de Phone Number [facility] [address] [place] [address] documented in this encounter Visit Diagnoses Diagnosis Chronic pain syndrome- Primary Cervicalgia Fibromyalgia Mylagia and myositis, unspecified Screening for osteoporosis- Primary Special screening [...] en (NORCO) 5-325 mg tabletIndications:Chron ic pain syndrome,Cervicalgia Take 1-2 Tabs by mouth every 6 hours as needed for up to 28 days for Pain Earliest Fill Date: 01/09/15 Daily Max: 8 Tabs Reorder 01/09/2015 03/01/2015 HYDROcodone-acetaminoph en (NORCO) 5-325 mg tabletIndications:Chron ic pain syndrome,Cervicalgia Take 1-2 Tabs by mouth every 6 hours as needed for up to 28 days for Pain Earliest Fill Date: 12/11/14 Daily Max: 8 Tabs Reorder 12/12/2014 03/01/2015 documented as of this encounter Care Teams Wood Block Artist Relationship Specialty Start Date End Date Jean Munoz MD [address] [place] [address] PCP - General 12/31/08 Manny Rizzo MD [address] [place] [phone] 04/20/10 documented as of this encounter
--- OUTSIDE RECORDS SUMMARY | 2024-06-10 07:24 | XMS_ITS | Encounter Summary ---
Author Organization [facility] Address [address] [place] [address] Care Team Providers Care Storekeeper Engineering Name Role Phone Jean Munoz MD Primary Care Provider Manny Rizzo MD Unavailable Afia Valle MD Unavailable [phone] Jesi Leong HEAD OF HISTORY Unavailable SaloJesi shanks HEAD OF HISTORY Unavailable Reason for Visit * Reason Onset Date Comments Medication Management 06/03/2015 Encounter Details Date Type Department Care Team (Late st Contact Info) Description 06/03/2015 Refill [facility] Medicine [facility] [address] [place] [address] Jean Munoz MD [address] [place] [address] Medication Management Social History Tobacco [...] zolpidem (AMBIEN) 5 mg tabletIndications:Other insomnia Take one tablet by mouth at bedtime as needed for sleep.Daily max: 1 tablet 30 Tab 0 06/03/2015 06/17/2015 sumatriptan (IMITREX) 50 mg tabletIndications:Other type of migraine Take 1 tablet for 1 dose as needed for migraine 9 Tab 0 06/03/2015 06/17/2015 documented in this encounter Miscellaneous Notes * Telephone Encounter - Sapna Dominguez - 06/05/2015 1454 EDT Pharmacy notified. * Telephone Encounter - Jean Munoz MD - 06/04/2015 1739 EDT Please let pharmacy know, thanks * Telephone Encounter - Imtiaz Camara - 06/04/2015 1256 EDT Pt notified Rx's called into pharmacy. Pt states she averages 3 headaches per week/12 per month * Telephone Encounter - Jean Munoz MD - 06/03/2015 1653 EDT May repeat x 1 in 2 hours Max 100 mg/day Please call patient to verify average headaches per month, thanks * Telephone Encounter - Imtiaz Camara - 06/03/2015 1618 EDT Smiley from [facility] calling to have Rx for Sumatriptan updated. Please included on Rx sig code: may repeat ____ max daily ____ and average headaches per month Call Smiley at [facility] with questions [phone] * Telephone Encounter - Jean Munoz MD - 06/03/2015 1605 EDT Script done, please call in to pharmacy and notify patient, thanks * Telephone Encounter - Lizz Negro RN - 06/03/2015 1556 EDT Medication(s) Requested: imitrex 50 mg, ambien 5 mg Pharmacy: [facility] Last Refill Date: 02/19/15, 12/11/14 Last Visit Date: 04/09/15 Next Visit Date: 06/26/2015 Is patient out of medication? unknown LIZZ NEGRO RN 06/03/2015 15:56 documented in this encounter Plan of Treatment Upcoming Encounters Date Type Department Care Team (Late st Contact Info) Description 06/29/2024 14:15 EDT Office Visit [facility] Medicine [facility] [address] [place] [address] Jean Munoz MD [address] [place] [phone] documented as of this encounter Visit Diagnoses Diagnosis Other insomnia- Primary Other type of migraine Screening for osteoporosis- [...] End Da te sumatriptan (IMITREX) 50 mg tabletIndications:Migra ine take 1 tablet for 1 dose as needed for migraine Reorder 02/19/2015 06/03/2015 zolpidem (AMBIEN) 5 mg tabletIndications:Insom yesi Take 1 Tab by mouth at bedtime as needed for Sleep Daily Max: 5 mg Reorder 12/11/2014 06/03/2015 documented as of this encounter Additional Health Concerns Infection Onset Date Last Indicated Resolved Time R/O COVID-19 05/15/2022 05/15/2022 05/20/2022 22:1 6 EDT R/O COVID-19 11/14/2022 11/14/2022 11/14/2022 19:1 6 EST documented as of this encounter Care Teams Storekeeper Engineering Relationship Specialty Start Date End Date Jean Munoz MD [address] [place] [phone] PCP - General 12/31/08 Manny Rizzo MD [facility] [place] [phone] 04/20/10 Afia Valle MD [address] [facility] [address] [place] [phone] Care Team Radiation Oncology 07/02/[address] [facility] [address] [place] [phone] Back Seam Stitcher 12/24/21 09/20/22 Jesi Leong, [facility] [address] [place] [address] Behavioral Health Back Seam StitcherDrying Tunnel Operator Care 10/19/22 01/23/24 documented as of this encounter
--- OUTSIDE RECORDS SUMMARY | 2024-06-10 07:24 | XMS_ITS | Encounter Summary ---
Author Organization [facility] Address [address] [place] [address] Care Team Providers Care Game Tester Name Role Phone Moi Munoz MD Primary Care Provider Manny Rizzo MD Unavailable Reason for Visit * Reason Onset Date Comments Medication Management 02/19/2015 Encounter Details Date Type Department Care Team (Late st Contact Info) Description 02/19/[address] [facility] [address] [place] [address] Moi Munoz MD [address] [place] [address] Medication Management Social History Tobacco [...] Addendum Note - Moi Munoz MD - 02/21/2015 1011 EDTAddended by: MOI MUNOZ on: 02/21/2015 10:11 Modules accepted: Orders, Medications * Telephone Encounter - Kaitlyn Montero LPN - 02/21/2015 0953 EDT Medication: Xopenex HFA Insurance Co: Medicaid Approval # (if applicable):[id number] Approval dates: 02/20/2015 to 02/21/2016 Name of Pharmacy notified: [facility] Left message for patient to let her know PA was approved. * Telephone Encounter - Moi Munoz MD - 02/19/2015 1906 EDT I called patient, left message Please try to obtain PA for Xopenex, perhaps it will be covered if Proventil does not work as well * Telephone Encounter - Vanessa Wade - 02/19/2015 1704 EDT Patient states she received a script for Proventil, and she uses Xopenex. She states Proventil doesn't work as well and would like us to change it documented in this encounter Plan of Treatment Upcoming Encounters Date Type Department Care Team (Late st Contact Info) Description 06/29/2024 14:15 EDT Office Visit [facility] [address] [place], [place] [phone] Moi Munoz MD [address] [place] [address] documented as of this encounter Visit Diagnoses Not on filedocumented in this encounter Discontinued Medications Medication Sig Discontinue Reason Start Date End Da te albuterol 90 mcg/actuation inhalerIndications:Ast hma,Chronic obstructive pulmonary disease ([facility]) Inhale 2 Puffs as directed every 4 hours as needed for Wheezing Insurance does not cover 02/15/2015 02/21/2015 documented as of this encounter Care Teams Game Tester Relationship Specialty Start Date End Date Moi Munoz MD [address] [place] [phone] PCP - General 12/31/08 Manny Rizzo MD [address] [place] [address] 04/20/10 documented as of this encounter
--- OUTSIDE RECORDS SUMMARY | 2024-06-10 07:24 | XMS_ITS | Encounter Summary ---
Author Organization [facility] Address [address] [place] [address] Care Team Providers Care Pediatric Geneticist Name Role Phone Jean Munoz MD Primary Care Provider Manny Rizzo MD Unavailable Encounter Details Date Type Department Care Team (Late st Contact Info) Description 04/27/2015 Abstract [facility] [address] [place] [address] Jean Munoz MD [address] [place] [address] Social History Tobacco Use Types [...] [facility] [address] [place] [address] Jean Munoz MD [address] [place] [phone] documented as of this encounter Visit Diagnoses Not on filedocumented in this encounter Care Teams Pediatric Geneticist Relationship Specialty Start Date End Date Jean Munoz MD [address] [place] [phone] PCP - General 12/31/08 Manny Rizzo MD [address] [place] [phone] 04/20/10 documented as of this encounter
--- OUTSIDE RECORDS SUMMARY | 2024-06-10 07:24 | XMS_ITS | Encounter Summary ---
Author Organization [facility] Address [address] [place] [address] Care Team Providers Care Online Publisher Name Role Phone Jean Munoz MD Primary Care Provider Manny Rizzo MD Unavailable Reason for Visit * Reason Onset Date Comments Medications Refill 03/11/2015 Encounter Details Date Type Department Care Team (Late st Contact Info) Description 03/11/2015 Telephone [facility] Sleep Program - [address] [id number] Tiana Bacon [address] [place] [address] Medications Refill Social History Tobacco [...] by mouth daily Daily Max: 2 Tabs 60 Tab 0 03/11/2015 04/08/2015 methylphenidate (RITALIN;METHYLIN) 10 mg tablet Take one tab in the afternoon for narcolepsy 30 Tab 0 03/11/2015 04/08/2015 documented in this encounter Miscellaneous Notes * Telephone Encounter - Leann Domingo - 03/11/2015 0948 EDT Patient needs a refill for Ritalin 20 mg 2 tablets every morning and Ritalin 10 mg 1 tablet every afternoon. Patient would like to pick these up tomorrow. documented in this encounter Plan of Treatment Upcoming Encounters Date Type Department Care Team (Late st Contact Info) Description 06/29/2024 14:15 EDT Office Visit [facility] [address] [place] [address] Jean Munoz MD [address] [place] [phone] documented as of this encounter Visit Diagnoses Not on filedocumented in this encounter Discontinued Medications Medication Sig Discontinue Reason Start Date End Da te methylphenidate (RITALIN;METHYLIN) 10 mg tablet Take one tab in the afternoon for narcolepsy Reorder 02/11/2015 03/11/2015 methylphenidate (RITALIN;METHYLIN) 20 mg tablet Take 2 Tabs by mouth daily Earliest Fill Date: 02/12/15 Daily Max: 2 Tabs Reorder 02/12/2015 03/11/2015 documented as of this encounter Care Teams Online Publisher Relationship Specialty Start Date End Date Jean Munoz MD [address] [place] [address] PCP - General 12/31/08 Manny Rizzo MD [address] [place] [phone] 04/20/10 documented as of this encounter
--- OUTSIDE RECORDS SUMMARY | 2024-06-10 07:24 | XMS_ITS | Encounter Summary ---
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) Discharge Disposition: Auto Discharge Social [...] Sign Reading Time Taken Comments Blood Pressure 110/72 01/15/2015 1150 EDT Pulse 74 01/15/2015 1150 EDT Temperature - - Respiratory Rate 16 01/15/2015 1150 EDT Oxygen Saturation 99% 01/15/2015 1150 EDT Inhaled Oxygen Concentration - - Weight 88 kg (194 lb) 01/15/2015 1150 EDT Height - - Body Mass Index 33.28 12/11/2014 1443 EDT documented in this encounter [...] as of this encounter Discharge Diagnoses Diagnosis 347.00 NARCOLEPSY, WITHOUT CATAPLEXY[ICD-9-CM] documented in this encounter Ordered Prescriptions Prescription Sig Dispensed Refills Start Date End Da te methylphenidate (RITALIN;METHYLIN) 10 mg tablet Take one tab in the afternoon for narcolepsy 30 Tab 0 01/15/2015 02/11/2015 methylphenidate (RITALIN;METHYLIN) 20 mg tablet Take 2 Tabs by mouth daily Daily Max: 2 Tabs 60 Tab 0 01/15/2015 02/11/2015 documented in this encounter Discharge Disposition Disposition Code Departure Means Destination Auto Discharge documented in this encounter Progress Notes * Tiana Bacon MD - 01/15/2015 1203 EDT Name: Liset Viera : 1960 Date of Visit: 01/15/2015 HPI: Liset Viera is a 54-year-old woman with a history of narcolepsy who presents for yearly follow-up. She was last seen January 2014. At that time she had reported dizziness and the loss of balance, which she states has resolved and no longer experiences. She also had reported tinnitus. She had previously been evaluated by audiology and otolaryngology, but had not followed up with them. She states that the ringing has gotten better. Additionally, she had also reported having a tremor in her arms when they were outstretched. She states that they figured out that it was her inhalers that were causing it. Otherwise, she does not report any issues with her mental fat a day. She does not experience headaches or palpitations. It has been effective at controlling her sleepiness. Outpatient Prescriptions Marked as Taking for the 01/15/15 encounter (Office Visit) with Tiana Bacon MD Medication Sig Dispense Refill ??? baclofen (LIORESAL) 10 mg tablet Take 1 Tab by mouth 3 times daily as needed (mucles tightness). 180 Tab 0 ??? cycloSPORINE (RESTASIS) 0.05 % ophthalmic emulsion Place 1 Drop into both eyes 2 times daily ??? DALIRESP 500 mcg tablet TAKE ONE [...] ??? fluticasone-salmeterol (ADVAIR HFA) 230-21 mcg/actuation inhaler Inhale 2 Puffs as directed 2 times daily. 3 Inhaler 3 ??? [START ON 02/06/2015] HYDROcodone-acetaminophen (NORCO) 5-325 mg tablet Take 1-2 [...] Earliest Fill Date: 12/18/14 30 Tab 0 ??? methylphenidate (RITALIN;METHYLIN) 20 mg tablet Take 2 Tabs by mouth daily Earliest Fill Date: 12/18/14 Daily Max: 2 Tabs 60 Tab 0 ??? mometasone (NASONEX) 50 mcg/actuation nasal spray 2 Sprays by nasal route daily. 3 Inhaler 3 ??? montelukast (SINGULAIR) 10 mg tablet Take 1 Tab by mouth daily. 90 Tab 3 ??? nortriptyline (PAMELOR) 75 mg capsule Take [...] 0 ??? sertraline (ZOLOFT) 100 mg tablet Take 2 Tabs by mouth daily. 180 Tab 3 ??? sumatriptan (IMITREX) 50 mg tablet TAKE ONE TABLET BY MOUTH FOR 1 DOSE NEEDED FOR MIGRAINE 9Tab 3 ??? tamsulosin (FLOMAX) 0.4 mg capsule Take 1 Cap by mouth daily. 90 Cap 3 ??? tamsulosin (FLOMAX) 0.4 mg capsule Take one capsule by mouth every day (take it half an hour after supper) 90 Cap 1 ??? tiotropium (SPIRIVA WITH HANDIHALER) 18 mcg inhalation capsule Inhale 1 Cap as directed daily. 90 Cap 3 ??? XOPENEX HFA 45 mcg/actuation inhaler INHALE TWO PUFFS BY MOUTH NEEDED FOR SHORTNESS OF BREATH 45 g 0 ??? zolpidem (AMBIEN) 5 mg tablet Take 1 Tab by mouth at bedtime as needed for Sleep Daily Max: 5 mg 30 Tab 5 Allergies Allergen Reactions ??? Toradol [Ketorolac Tromethamine] Hives ??? Motrin [Ibuprofen] Itching ROS: A ten point ROS was performed and was negative except for pertinent positives in the HPI. EXAM: Filed Vitals: 01/15/15 1150 BP: 110/72 Pulse: 74 Resp: 16 Weight: 87.998 kg (194 lb) SpO2: 99% Heart: regular rate and rhythm, normal S1, S2 Lungs: clear to auscultation bilaterally A/P: Liset Viera is a 54-year-old woman with a history of narcolepsy who presents for follow-up. Shehas otherwise been doing well since she was last seen approximately 1 year ago. I will refill her prescription for methylphenidate 20 mg in the morning, and 10 mg in the afternoon . I will see her back in follow-up in approximately 1 year. If any issues arise before then she should not hesitate to contact the clinic Tiana Bacon MD 01/15/2015 12:04 documented in this encounter Plan of Treatment Upcoming Encounters Date Type Department Care Team (Late st Contact Info) Description 06/29/2024 14:15 EDT Office Visit [facility] [address] [place] [address] Jean Munoz MD [address] [place] [address] documented as of this encounter Visit Diagnoses Diagnosis Narcolepsy without cataplexy(347.00)- Primary Narcolepsy without cataplexy Screening for osteoporosis- Primary Special [...] Fill Date: 12/18/14 Daily Max: 2 Tabs Reorder 12/18/2014 01/15/2015 methylphenidate (RITALIN;METHYLIN) 10 mg tablet Take one tab in the afternoon for narcolepsy Earliest Fill Date: 12/18/14 Reorder 12/18/2014 01/15/2015 documented as of this encounter Historical Medications * This list may reflect changes made after this encounter. Medication Sig Dispensed Refills Start Date End Date cycloSPORINE (RESTASIS) 0.05 % ophthalmic emulsion Place 1 Drop into both eyes 2 times daily 10/25/2014 11/11/2018 added in this encounter Care Teams Assisted Living Manager Relationship Specialty Start Date End Date Jean Munoz MD [address] [place] [phone] PCP - General 12/31/08 Manny Rizzo MD [address] [place] [phone] 04/20/10 documented as of this encounter
--- OUTSIDE RECORDS SUMMARY | 2024-06-10 07:24 | XMS_ITS | Encounter Summary ---
Author Organization [facility] Address [address] [place] [address] Care Team Providers Care Wheel Of Fortune Dealer Name Role Phone Jean Munoz MD Primary Care Provider Manny Rizzo MD Unavailable Reason for Visit * Reason Onset Date Comments Medications Refill 05/06/2015 Encounter Details Date Type Department Care Team (Late st Contact Info) Description 05/06/2015 Refill [facility] Sleep Program - [address] [phone] Tiana Bacon [address] [place] [phone] Medications Refill Social History Tobacco Use [...] Tabs by mouth daily Earliest Fill Date: 04/29/15 Daily Max: 2 Tabs 60 Tab 0 04/29/2015 06/03/2015 methylphenidate (RITALIN;METHYLIN) 10 mg tablet Take one tab in the afternoon for narcolepsy Earliest Fill Date: 05/06/15 30 Tab 0 05/06/2015 06/03/2015 documented in this encounter Miscellaneous Notes * Telephone Encounter - Corrina Ac RN - 05/06/2015 1123 EDT Let pt know her (ritalin) prescriptions ready for filler picker at the Sleep Center. * Telephone Encounter - Barbara Gimenez - 05/06/2015 1016 EDT PT needs refill on Ritalin 20mg 2 in the morning; and Ritalin 10mg 1 every afternoon. PT will filler picker. documented in this encounter Plan of Treatment Upcoming Encounters Date Type Department Care Team (Late st Contact Info) Description 06/29/2024 14:15 EDT Office Visit [facility] [address] [place] [address] Jean Munoz MD [address] [place] [address] documented as of this encounter Visit Diagnoses Not on filedocumented in this encounter Discontinued Medications Medication Sig Discontinue Reason Start Date End Da te methylphenidate (RITALIN;METHYLIN) 10 mg tablet Take one tab in the afternoon for narcolepsy Reorder 04/08/2015 05/06/2015 methylphenidate (RITALIN;METHYLIN) 20 mg tablet Take 2 Tabs by mouth daily Daily Max: 2 Tabs Reorder 04/08/2015 05/06/2015 documented as of this encounter Care Teams Wheel Of Fortune Dealer Relationship Specialty Start Date End Date Jean Munoz MD [address] [place] [phone] PCP - General 12/31/08 Manny Rizzo MD [address] [place] [phone] 04/20/10 documented as of this encounter
--- OUTSIDE RECORDS SUMMARY | 2024-06-10 07:24 | XMS_ITS | Encounter Summary ---
Author Organization [facility] Address [address] [place] [address] Care Team Providers Care Garbage Stoker Name Role Phone Jean Munoz MD Primary Care Provider Manny Rizzo MD Unavailable Reason for Visit * Reason Onset Date Comments Prior Auth, Medication 09/10/2015 Spiriva R espimat, Methadone Encounter Details Date Type Department Care Team (Late st Contact Info) Description 09/10/[address] [phone] Kaitlyn Montero LPN [address] [place] [address] Prior Auth, Medication (Spiriva Respimat, Methadone ) Social History Tobacco Use Types Packs/Day [...] te HYDROcodone-acetaminophen (NORCO) 5-325 mg tabletIndications:Chronic pain syndrome,Cervicalgia,Outreach Representative majo knee pain, unspecified laterality,Chronic back pain Take 1-2 Tabs by mouth every 6 hours as needed for up to 28 days for Pain Earliest Fill Date: 09/12/15 Daily Max: 8 Tabs 112 Tab 0 09/12/2015 09/17/2015 documented in this encounter Miscellaneous Notes * Telephone Encounter - Jean Munoz MD - 09/12/2015 1052 EST Script done * Telephone Encounter - Zeenat Plunkett - 09/12/[address] Munoz has decided that we will appeal the PA denial for methadone. We will not receive an answer for the appeal by today so he will prescribe the patient her previous dose of hydrocodone to hold her over until we get the PA worked out with her insurance. I called the patient to inform her ofthis. I informed the patient that she will need to come into the office today to pick out hand the paper prescription for hydrocodone. I informed her that the prescription will be waiting at the assistant front office manager. The patient agreed with the plan. Zeenat Plunkett 09/12/2015 10:59 * Telephone Encounter - Kavita Adames - 09/12/2015 0930 EST Pt calling again to check on prior auth, Now 4 days without medication. * Telephone Encounter - Jean Munoz MD - 09/11/2015 1908 EST She has not been on morphine, but we are specifically requesting methadone for chronic pain, this is not equivalent to morphine, please address LAUREN on , if they will not approve we will needto change back to hydrococodne 4/day that she was on previously and will need new Rx * Telephone Encounter - Sapna Dominguez - 09/11/2015 1653 EST Pt calling to check status of prior auth. Please call. * Telephone Encounter - Kavita Adames - 09/11/2015 1424 EST Pt calling re preauth. Please call pt back. * Telephone Encounter - Kaitlyn Montero LPN - 09/10/2015 1457 EST Medication: Methadone 5 mg Insurance Co.: [place] medicaid Formulary alternatives needed to try and fail: Patient must have had a documented side effect, allergy, or treatment failure to morphine sulfate CR 12 hour tablets. * Telephone Encounter - Kaitlyn Montero LPN - 09/10/2015 1057 EST PA for Methadone sent to insurance. Waiting for response. * Telephone Encounter - Kaitlyn Montero LPN - 09/10/2015 0902 EST PA for Spiriva Respimat sent to insurance. Waiting for response. documented in this encounter Plan of Treatment Upcoming Encounters Date Type Department Care Team (Late st Contact Info) Description 06/29/2024 14:15 EDT Office Visit [facility] [address] [place] [address] Jean Munoz MD [address] [place] [address] documented as of this encounter [...] pain, unspecified laterality,Chronic back pain Take 1 tab by mouth in 8 AM and at 4 PM Alternate therapy 09/09/2015 09/12/2015 HYDROcodone-acetaminophe n (NORCO) 5-325 mg tabletIndications:Chroni c pain syndrome,Cervicalgia,Chr onic knee pain, unspecified laterality,Chronic back pain Take 1-2 Tabs by mouth every 6 hours as needed for up to 28 days for Pain Earliest Fill Date: 07/15/15 Daily Max: 8 Tabs Reorder 07/15/2015 09/12/2015 documented as of this encounter Care Teams Garbage Stoker Relationship Specialty Start Date End Date Jean Munoz MD [address] [place] [phone] PCP - General 12/31/08 Manny Rizzo MD [address] [place] [phone] 04/20/10 documented as of this encounter
--- OUTSIDE RECORDS SUMMARY | 2024-06-10 07:24 | XMS_ITS | Encounter Summary ---
Author Organization [facility] Address [address] [place] [address] Care Team Providers Care Retanner Name Role Phone Jean Munoz MD Primary Care Provider Manny Rizzo MD Unavailable Reason for Visit * Reason Onset Date Comments Other 06/03/2015 Encounter Details Date Type Department Care Team (Late st Contact Info) Description 06/03/2015 Telephone [facility] Sleep Program - [address] [phone] Tiana Bacon [address] [place] [phone] Other Social History Tobacco Use Types [...] Daily Max: 2 Tabs 60 Tab 0 06/03/2015 07/01/2015 methylphenidate (RITALIN;METHYLIN) 10 mg tablet Take one tab in the afternoon for narcolepsy 30 Tab 0 06/03/2015 07/01/2015 methylphenidate (RITALIN;METHYLIN) 20 mg tablet Take 2 Tabs by mouth daily Earliest Fill Date: 05/27/15 Daily Max: 2 Tabs 60 Tab 0 05/27/2015 06/03/2015 methylphenidate (RITALIN;METHYLIN) 10 mg tablet Take one tab in the afternoon for narcolepsy Earliest Fill Date: 06/03/15 30 Tab 0 06/03/2015 06/03/2015 documented in this encounter Miscellaneous Notes * Telephone Encounter - Corrina Ac RN - 06/03/2015 1601 EDT Spoke with patient and let her know her (ritalin) prescriptions ready for garbage pick up worker at the Sleep Center. * Telephone Encounter - Corrina Ac RN - 06/03/2015 1543 EDT Re-printed ritalin prescriptions under (shredded scripts printed under ). * Telephone Encounter - Odilia Ochoa - 06/03/2015 0852 EDT Needs refill ritalin 20mg 2x per day and ritalin 10mg 1 per day. Pick them up when ready. Please call [phone]. documented in this encounter Plan of Treatment Upcoming Encounters Date Type Department Care Team (Late st Contact Info) Description 06/29/2024 14:15 EDT Office Visit [facility] [address] [place] [address] Jean Munoz MD [address] [place] [address] documented as of this encounter Visit Diagnoses Not on filedocumented in this encounter Discontinued Medications Medication Sig Discontinue Reason Start Date End Da te methylphenidate (RITALIN;METHYLIN) 10 mg tablet Take one tab in the afternoon for narcolepsy Earliest Fill Date: 05/06/15 Reorder 05/06/2015 06/03/2015 methylphenidate (RITALIN;METHYLIN) 20 mg tablet Take 2 Tabs by mouth daily Earliest Fill Date: 04/29/15 Daily Max: 2 Tabs Reorder 04/29/2015 06/03/2015 methylphenidate (RITALIN;METHYLIN) 10 mg tablet Take one tab in the afternoon for narcolepsy Earliest Fill Date: 06/03/15 Reorder 06/03/2015 06/03/2015 methylphenidate (RITALIN;METHYLIN) 20 mg tablet Take 2 Tabs by mouth daily Earliest Fill Date: 05/27/15 Daily Max: 2 Tabs Reorder 05/27/2015 06/03/2015 documented as of this encounter Care Teams Retanner Relationship Specialty Start Date End Date Jean Munoz MD [address] [place] [phone] PCP - General 12/31/08 Manny Rizzo MD [address] [place] [phone] 04/20/10 documented as of this encounter
--- OUTSIDE RECORDS SUMMARY | 2024-06-10 07:24 | XMS_ITS | Encounter Summary ---
Author Organization [facility] Address [address] [place] [address] Care Team Providers Care Distribution Field Technician Name Role Phone Jean Munoz MD Primary Care Provider Manny Rizzo MD Unavailable Reason for Visit * Reason Comments Annual Exam Encounter Details Date Type Department Care Team (Late st Contact Info) Description 04/09/2015 14:00 EDT Office Visit [facility] [place] [address] [place] [address] Jean Munoz MD [address] [place] [phone] Routine general medical examination at a health care facility (Primary Dx); Chronic pain syndrome; Chronic knee pain, unspecified laterality; Cervicalgia; Chronic back pain; Chronic obstructive pulmonary disease, unspecified COPD type (CMS-HCC) ([facility]); Asthma, moderate persistent, uncomplicated; Insomnia, unspecified insomnia; Hesitancy Social History Tobacco Use Types Packs/Day Years [...] Reading Time Taken Comments Blood Pressure 132/76 04/10/201557 EDT Pulse 82 04/10/2015 0857 EDT Temperature 36.8 ??C (98.2 ??F) 04/10/2015 0857 EDT Respiratory Rate 16 04/10/2015 0857 EDT Oxygen Saturation - - Inhaled Oxygen Concentration - - Weight 93.9 kg (207 lb) 04/10/2015 0857 EDT Height 162.6 cm (5' 4) 04/10/2015 0857 EDT Body Mass Index 35.53 04/10/2015 0857 EDT documented in this encounter Functional Status [...] te HYDROcodone-acetaminophen (NORCO) 5-325 mg tabletIndications:Chronic pain syndrome,Cervicalgia,Dealmaker majo knee pain, unspecified laterality,Chronic back pain Take 1-2 Tabs by mouth every 6 hours as needed for up to 28 days for Pain Daily Max: 8 Tabs 112 Tab 0 04/10/2015 06/17/2015 HYDROcodone-acetaminophen (NORCO) 5-325 mg tabletIndications:Chronic pain syndrome,Cervicalgia,Dealmaker majo knee pain, unspecified laterality,Chronic back pain Take 1-2 Tabs by mouth every 6 hours as needed for up to 28 days for Pain Earliest Fill Date: 05/08/15 Daily Max: 8 Tabs 112 Tab 0 05/08/2015 06/17/2015 HYDROcodone-acetaminophen (NORCO) 5-325 mg tabletIndications:Chronic pain syndrome,Cervicalgia,Dealmaker majo knee pain, unspecified laterality,Chronic back pain Take 1-2 Tabs by mouth every 6 hours as needed for up to 11 days for Pain Earliest Fill Date: 06/05/15 Daily Max: 8 Tabs 66 Tab 0 06/05/2015 06/17/2015 documented in this encounter Progress Notes * Jean Munoz MD - 04/28/2015 0649 EDT Female Well Adult Preventative Care Visit Patient ID: Liset Viera is an 54 y.o. female. Subjective: HISTORY OF PRESENT ILLNESS: Chief Complaint Patient presents with ??? Annual Exam See Health Care Questionnaire for details and ROS. No new concerns FM/chronic pain stable ON intermediate accountant opioids Needs refills Also COPD/asthma Stable Followed by Pulmonology Depression/anxiety Stable Narcolepsy/insomnia Ritalin per Sleep [facility], Ambien by us Now living in new apartment in [place] [address] [address] with AC, helps with lungs Breathing worse in hot weather No TOB uses marijuana, states this is why UDS is +for marijuana Patient Active Problem List Diagnosis ??? Severe [...] of right ankle 03/30/2010 ??? Pneumonia 02/26/2013 Past Surgical History Procedure Laterality Date ??? Salpingectomy 1982 ectopic ??? Hysterectomy, vaginal menorrhagia ??? Shoulder arthroscopy 10/15 left, with acromioplasty ??? Gastric fundoplication 03/02/07 [place] ??? Cervical spine surgery 12/31/08 discectomy, fusion C4-7 Dr eDwitt ??? Colonoscopy 07/29/09 repeat 10 years ??? Ankle fracture surgery 04/01/10 left ankle [facility] ??? Cyst incision and drainage 09/17/10 left cheek ??? Fine needle aspiration 09/19/10 left cheek ??? Cystoscopy 02/14/13 History Substance Use Topics ??? Smoking status: Former Smoker -- 2.00 packs/day for 35 years Types: Cigarettes Quit date: 10/14/2010 ??? Smokeless tobacco: Never Used ??? Alcohol Use: No Comment: rarely Family History Problem Relation [...] Grandfather ??? Glaucoma Neg Hx ??? Macular Degen Neg Hx ??? Blindness Neg Hx ??? Depression Brother ??? Depression Brother Allergies Allergen Reactions ??? Toradol [Ketorolac Tromethamine] [...] directed 3 Inhaler 3 ??? [START ON 06/05/2015] HYDROcodone-acetaminophen (NORCO) 5-325 mg tablet Take 1-2 Tabs by mouth every 6 hours as needed for up to 11 days for Pain Earliest Fill Date: 06/05/15 Daily Max: 8 Tabs 66 Tab 0 ??? [START ON 05/08/2015] HYDROcodone-acetaminophen (NORCO) 5-325 mg tablet Take 1-2 Tabs by mouth every 6 hours as needed for up to 28 days for Pain Earliest Fill Date: 05/08/15 Daily Max: 8 Tabs 112 Tab 0 ??? HYDROcodone-acetaminophen (NORCO) 5-325 mg tablet Take 1-2 Tabs by mouth every 6 hours as needed for up to 28 days for Pain Daily Max: 8 Tabs 112 Tab 0 [...] by mouth daily Daily Max: 2 Tabs 60Tab 0 ??? methylphenidate (RITALIN;METHYLIN) 10 mg tablet Take one tab in the afternoon for narcolepsy 30Tab 0 ??? mometasone (NASONEX) 50 mcg/actuation nasal spray Instill 2 Sprays into both nostrils daily 3 Inhaler 1 ??? montelukast (SINGULAIR) 10 mg tablet TAKE ONE TABLET BY MOUTH ONE TIME DAILY 90 Tab 1 ??? nortriptyline (PAMELOR) 75 mg capsule Take 1 Cap by mouth daily 90 Each 1 ??? omeprazole (PRILOSEC) 40 mg capsule Take 1 Cap by mouth daily 90 Cap 1 ??? ondansetron (ZOFRAN) 4 mg tablet Take 1 Tab by mouth daily as needed for Nausea 30 Tab 1 ??? pregabalin (LYRICA) 150 mg capsule Take 1 Cap by mouth 3 times daily Daily Max: 450 mg 270 Each1 ??? rOPINIRole (REQUIP) 2 mg tablet TAKE ONE TABLET BY MOUTH AT BEDTIME 90 Tab 1 ??? sertraline (ZOLOFT) 100 mg tablet TAKE TWO TABLETS BY MOUTH DAILY 180 Tab 1 ??? sumatriptan (IMITREX) 50 mg tablet take 1 tablet for 1 dose as needed for migraine 9 Tab 2 ??? tamsulosin (FLOMAX) 0.4 mg capsule Take 1 Cap by mouth daily. 90 Cap 3 ??? tiotropium (SPIRIVA WITH HANDIHALER) 18 mcg inhalation capsule INHALE ONE CAP VIA HANDIHALER EVERY DAY DIRECTED 90 Cap 1 ??? zolpidem (AMBIEN) 5 mg tablet Take 1 Tab by mouth at bedtime as needed for Sleep Daily Max: 5 mg 30 Tab 5 No current facility-administered medications for this visit. ROS see form Objective: BP 132/76 mmHg Pulse 82 Temp(Src) 36.8 ??C (98.2 ??F) (Tympanic) Resp 16 Ht 162.6 cm (64) Wt 93.895 kg (207 lb) BMI 35.51 kg/m2 LMP 01/11/1987 Body mass index is 35.51 kg/(m^2). Physical Exam Constitutional: She is oriented to person, place, and time. She appears well- developed and well-nourished. overweight HENT: Head: Normocephalic and atraumatic. Right Ear: External ear normal. Left Ear: External ear normal. Nose: Nose normal. Mouth/Throat: Oropharynx is clear and moist. Eyes: Conjunctivae and EOM are normal. Pupils are equal, round, and reactive to light. Neck: Normal range of motion. Neck supple. No thyromegaly present. Cardiovascular: Normal rate, regular rhythm, normal heart sounds and intact distal pulses. No murmur heard. Pulmonary/Chest: Effort normal and breath sounds normal. No respiratory distress. Abdominal: Soft. Bowel sounds are normal. Musculoskeletal: Normal range of motion. She exhibits no edema. Neurological: She is alert and oriented to person, place, and time. She has normal reflexes. No cranial nerve deficit. Skin: Skin is warm and dry. No rash noted. Psychiatric: Her behavior is normal. Nursing note and vitals reviewed. Assessment: Breast cancer screen: she will call for mammogram Cervical cancer screen: Screening not indicated: s/p hyst. Colon cancer screen: Screening colonoscopy Done 2008, 2018 Skin cancer screen: We reviewed the characteristics of concerning skin lesions. Patient does not report any concerning lesions. Gonorrhea/Chlamydia Screen (<24 yr or high risk): Screening not indicated: no risk factors. Eye care: Counseled. Dental care: Counseled. Hearing: patient does not have concerns. Lipid screen: indicated: screening ordered. Counseled. DM screen: indicated: screening ordered. Counseled. HTN screen: BP is normal today. Counseled. Depression symptoms: none EtOH use: reports that she does not drink alcohol.. Counseled. Tobacco use: reports that she quit smoking about 4 years ago. Her smoking use included Cigarettes. She has a 70 pack-year smoking history. She has never used smokeless tobacco.. Counseled. Substance abuse: reports that she does not use illicit drugs.. Counseled. Weight: obese (BMI 30-39). Counseled. Exercise: Counseled. Injury prevention: Not discussed. Immunizations: Counseled about: influenza (annual for everybody) and pneumococcal (1 dose >65 yr; or <65 if chronic dz) Immunization History Administered Date(s) Administered ??? Influenza (whole) 08/10/2006, 06/28/2008, 07/02/2009 ??? Influenza H1N1 IM 09/25/2009 ? ? Influenza Vaccine =>3yo Quad Preservative Free IM 06/25/2014 ? ? Influenza Vaccine =>3yo Split IM 08/11/2010, 10/01/2011 ? ? Influenza Vaccine =>3yo Split Preservative Free IM 06/24/2012, 06/29/2013 ? ? Pneumococcal Polysaccharide Vaccine (PPSV23) =>2YO SQ/IM 08/10/2006 ??? Td 04/01/2000 ? ? Tdap Vaccine =>7YO IM 04/21/2010 Plan: Liset was seen today for annual exam. Diagnoses and associated orders for this visit: Routine general medical examination at a [facility] care facility Chronic pain syndrome Chronic knee pain, unspecified laterality Cervicalgia Chronic back pain - HYDROcodone-acetaminophen (NORCO) 5-325 mg tablet; Take 1-2 Tabs by mouth every 6 hours as neededfor up to 11 days for Pain Earliest Fill Date: 06/05/15 Daily Max: 8 Tabs - HYDROcodone-acetaminophen (NORCO) 5-325 mg tablet; Take 1-2 Tabs by mouth every 6 hours as neededfor up to 28 days for Pain Earliest Fill Date: 05/08/15 Daily Max: 8 Tabs - HYDROcodone-acetaminophen (NORCO) 5-325 mg tablet; Take 1-2 Tabs by mouth every 6 hours as neededfor up to 28 days for Pain Daily Max: 8 Tabs Chronic obstructive pulmonary disease, unspecified COPD type Asthma, moderate persistent, uncomplicated Stable F/U per Pulmonology Insomnia, unspecified insomnia Continue Ambien Hesitancy Continue FLomax FLu shot and PCV 13 at next visit Patient Education Topic: as above Method: Verbal Taught to: Patient Barriers: None Outcomes: Verbalized understanding Return in 3 months (on 07/02/2015) for SERA. References: USPTF Level A & B Recommendations List USPTF Adult Recommendations USPTF Breast Cancer Screening USPTF Cervical Cancer Screening USPTF Colorectal Cancer Screening CDC Adult Immunizations 2010 CDC 7-18 Years Immunizations 2011 AAFP Clinical Recommendations documented in this encounter Plan of Treatment Upcoming Encounters Date Type Department Care Team (Late st Contact Info) Description 06/29/2024 14:15 EDT Office Visit [address] [address] Jean Munoz MD [address] [place] [phone] documented as of this encounter Visit Diagnoses Diagnosis Routine general medical examination at a health care facility- Primary Chronic pain syndrome Chronic knee pain, unspecified laterality Cervicalgia Chronic back pain Backache, unspecified Chronic obstructive pulmonary disease, unspecified COPD type ([facility]) Asthma, moderate persistent, uncomplicated Insomnia, unspecified insomnia Hesitancy Urinary hesitancy Screening for osteoporosis- Primary Special screening for [...] Fill Date: 03/29/15 Daily Max: 8 Tabs Reorder 03/29/2015 04/10/2015 HYDROcodone-acetaminoph en (NORCO) 5-325 mg tabletIndications:Chron ic pain syndrome,Cervicalgia Take 1-2 Tabs by mouth every 6 hours as needed for up to 28 days for Pain Earliest Fill Date: 03/01/15 Daily Max: 8 Tabs Reorder 03/01/2015 04/10/2015 HYDROcodone-acetaminoph en (NORCO) 5-325 mg tabletIndications:Chron ic pain syndrome,Cervicalgia Take 1-2 Tabs by mouth every 6 hours as needed for up to 28 days for Pain Earliest Fill Date: 02/06/15 Daily Max: 8 Tabs Reorder 02/06/2015 04/10/2015 tamsulosin (FLOMAX) 0.4 mg capsule Take one capsule by mouth every day (take it half an hour after supper) Duplicate Therapy 08/14/2013 04/28/2015 documented as of this encounter Care Teams Distribution Field Technician Relationship Specialty Start Date End Date Jean Munoz MD [address] [place] [phone] PCP - General 12/31/08 Manny Rizoz MD [address] [place] [phone] 04/20/10 documented as of this encounter
--- OUTSIDE RECORDS SUMMARY | 2024-06-10 07:24 | XMS_ITS | Encounter Summary ---
Author Organization [facility] Address [address] [place] [address] Care Team Providers Care Sr. Merchandise Planner Name Role Phone Jean Munoz MD Primary Care Provider Manny Rizzo MD Unavailable Reason for Visit * Reason Comments Other Encounter Details Date Type Department Care Team (Late st Contact Info) Description 02/12/2015 [facility] [address] [place] [address] Jean Munoz MD [address] [place] [phone] Other Social History Tobacco Use Types [...] End Da te montelukast (SINGULAIR) 10 mg tablet TAKE ONE TABLET BY MOUTH ONE TIME DAILY 90 Tab 0 02/12/2015 04/10/2015 SPIRIVA WITH HANDIHALER 18 mcg inhalation capsule INHALE ONE CAP VIA HANDIHALER EVERY DAY DIRECTED 90 Cap 0 02/12/2015 04/10/2015 ADVAIR HFA 230-21 mcg/actuation inhaler INHALE TWO PUFFS BY MOUTH TWICE DAILY as directed 36 g 1 02/12/2015 04/10/2015 XOPENEX HFA 45 mcg/actuation inhaler INHALE TWO PUFFS BY MOUTH EVERY SIX HOURS NEEDED 45 g 1 02/12/2015 04/10/2015 documented in this encounter Miscellaneous Notes * Telephone Encounter - Yadira Mccauley RN - 02/12/2015 0949 EDT Medication(s) Requested: xopenex 45mcg, advair 230-21, spiriva 18mcg, singulair 10 Pharmacy: [facility] Last Refill Date: 10/16/14, 12/13/13, 12/13/13, 12/13/13 Last Visit Date: 12/11/14 Next Visit Date: 03/01/2015 Is patient out of medication? unknown Yadira Mccauley RN 02/12/2015 9:49 documented in this encounter Plan of Treatment Upcoming Encounters Date Type Department Care Team (Late st Contact Info) Description 06/29/2024 14:15 EDT Office Visit [address] [place] [address] Jean Munoz MD [address] [place] [phone] documented as of this encounter Visit Diagnoses Not on filedocumented in this encounter Discontinued Medications Medication Sig Discontinue Reason Start Date End Da te XOPENEX HFA 45 mcg/actuation inhaler INHALE TWO PUFFS BY MOUTH NEEDED FOR SHORTNESS OF BREATH Reorder 10/16/2014 02/12/2015 fluticasone-salmeterol (ADVAIR HFA) 230-21 mcg/actuation inhalerIndications:Asth ma,COPD (chronic obstructive pulmonary disease) ([facility]) Inhale 2 Puffs as directed 2 times daily. Reorder 12/13/2013 02/12/2015 tiotropium (SPIRIVA WITH HANDIHALER) 18 mcg inhalation capsuleIndications:COPD (chronic obstructive pulmonary disease) ([facility]) Inhale 1 Cap as directed daily. Reorder 12/13/2013 02/12/2015 montelukast (SINGULAIR) 10 mg tabletIndications:Asthm a Take 1 Tab by mouth daily. Reorder 12/13/2013 02/12/2015 documented as of this encounter Care Teams Sr. Merchandise Planner Relationship Specialty Start Date End Date Jean Munoz MD [address] [place] [phone] PCP - General 12/31/08 Manny Rizzo MD [address] [place] [phone] 04/20/10 documented as of this encounter
--- OUTSIDE RECORDS SUMMARY | 2024-06-10 07:24 | XMS_ITS | Encounter Summary ---
Author Organization [facility] Address [address] [place] [address] Care Team Providers Care Supervisor Metal Furniture Fabrication Name Role Phone Jean Munoz MD Primary Care Provider Manny Rizzo MD Unavailable Reason for Visit * Reason Onset Date Comments Prior Auth, Medication 04/30/2015 Dalires Encounter Details Date Type Department Care Team (Late st Contact Info) Description 04/30/2015 Telephone [facility] [address] [place] [address] Kaitlyn Montero LPN [address] [place] [address] Prior Auth, Medication (Dalires ) Social History Tobacco Use Types Packs/Day [...] Telephone Encounter - Kaitlyn Montero LPN - 05/01/2015 1612 EDT Medication: Daliresp 500 mcg Insurance Co: [place] Approval # (if applicable): [id number] Approval dates: 04/30/2015-04/30/2016 Name of Pharmacy notified: [facility] * Telephone Encounter - Kaitlyn Montero LPN - 04/30/2015 1116 EDT PA sent to plan. Waiting for response. documented in this encounter Plan of Treatment Upcoming Encounters Date Type Department Care Team (Late st Contact Info) Description 06/29/2024 14:15 EDT Office Visit [facility] [address] [place] [address] Jean Munoz MD [address] [place] [phone] documented as of this encounter Visit Diagnoses Not on filedocumented in this encounter Care Teams Supervisor Metal Furniture Fabrication Relationship Specialty Start Date End Date Jean Munoz MD [address] [place] [phone] PCP - General 12/31/08 Manny Rizzo MD [address] [place] [phone] 04/20/10 documented as of this encounter
--- OUTSIDE RECORDS SUMMARY | 2024-06-10 07:24 | XMS_ITS | Encounter Summary ---
Author Organization [facility] Address [address] [place] [address] Care Team Providers Care Cider Press Operator Name Role Phone Jean Munoz MD Primary Care Provider Manny Rizzo MD Unavailable Reason for Visit * Reason Onset Date Comments Medications Refill 02/11/2015 Encounter Details Date Type Department Care Team (Late st Contact Info) Description 02/11/2015 Telephone [facility] Sleep Program - [address] [phone] Tiana Bacon [address] [place] [address] Medications Refill Social History Tobacco [...] Daily Max: 2 Tabs 60 Tab 0 02/12/2015 03/11/2015 methylphenidate (RITALIN;METHYLIN) 10 mg tablet Take one tab in the afternoon for narcolepsy 30 Tab 0 02/11/2015 03/11/2015 documented in this encounter Miscellaneous Notes * Telephone Encounter - Corrina Ac RN - 02/11/2015 1537 EDT Left message for pt to let know (ritalin) 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 * Telephone Encounter - Duy Booth - 02/11/2015 0932 EDT Calling to request refills of Ritalin to be picked up on Wednesday. documented in this encounter Plan of Treatment Upcoming Encounters Date Type Department Care Team (Late st Contact Info) Description 06/29/2024 14:15 EDT Office Visit [facility] [address] [place] [address] Jean Munoz MD [address] [place] [phone] documented as of this encounter Visit Diagnoses Not on filedocumented in this encounter Discontinued Medications Medication Sig Discontinue Reason Start Date End Da te methylphenidate (RITALIN;METHYLIN) 10 mg tablet Take one tab in the afternoon for narcolepsy Reorder 01/15/2015 02/11/2015 methylphenidate (RITALIN;METHYLIN) 20 mg tablet Take 2 Tabs by mouth daily Daily Max: 2 Tabs Reorder 01/15/2015 02/11/2015 documented as of this encounter Care Teams Cider Press Operator Relationship Specialty Start Date End Date Jean Munoz MD [address] [place] [phone] PCP - General 12/31/08 Manny Rizzo MD [address] [place] [address] 04/20/10 documented as of this encounter
--- OUTSIDE RECORDS SUMMARY | 2024-06-10 07:24 | XMS_ITS | Encounter Summary ---
Author Organization [facility] Address [address] [place] [address] Care Team Providers Care Wildlife Policy Professional Name Role Phone Jean Munoz MD Primary Care Provider Manny Rizzo MD Unavailable Encounter Details Date Type Department Care Team (Late st Contact Info) Description 07/10/2015 Abstract [facility] [address] [place] [address] Jean Munoz MD [address] [place] [address] Social History Tobacco Use Types [...] Visit [facility] [address] [place] [address] Jean Munoz MD [address] [place] [phone] documented as of this encounter Visit Diagnoses Not on filedocumented in this encounter Care Teams Wildlife Policy Professional Relationship Specialty Start Date End Date Jean Munoz MD [address] [place] [phone] PCP - General 12/31/08 Manny Rizzo MD [address] [place] [address] 04/20/10 documented as of this encounter
--- OUTSIDE RECORDS SUMMARY | 2024-06-10 07:24 | XMS_ITS | Encounter Summary ---
Author Organization [facility] Address [address] [place] [address] Care Team Providers Care Program Development Manager Name Role Phone Jean Munoz MD Primary Care Provider Manny Rizzo MD Unavailable Afia Valle MD Unavailable [phone] Jesi Leong CORRECTIONS SERGEANT Unavailable SaloJesi shanks CORRECTIONS SERGEANT Unavailable Reason for Visit * Reason Comments Other Encounter Details Date Type Department Care Team (Late st Contact Info) Description 02/19/2015 Refill [facility] [address] [place], [place] [phone] Jean Munoz MD [address] [place] [phone] Other Social History Tobacco Use [...] te sumatriptan (IMITREX) 50 mg tabletIndications:Migrain e take 1 tablet for 1 dose as needed for migraine 9 Tab 2 02/19/2015 06/03/2015 documented in this encounter Miscellaneous Notes * Telephone Encounter - Jean Munoz MD - 02/19/2015 1103 EDT escript done, please notify patient, thanks * Telephone Encounter - Lizz Negro RN - 02/19/2015 0958 EDT Medication(s) Requested: imitrex 50 mg tablet Pharmacy: [facility] Last Refill Date: 09/11/14 Last Visit Date: 12/11/14 Next Visit Date: 03/01/2015 Is patient out of medication? unknown LIZZ NEGRO RN 02/19/2015 9:58 documented in this encounter Plan of Treatment Upcoming Encounters Date Type Department Care Team (Late st Contact Info) Description 06/29/2024 14:15 EDT Office Visit [address] [address] Jean Munoz MD [address] [place] [address] documented as of this encounter Visit Diagnoses Diagnosis Migraine- Primary Migraine, unspecified, without mention of intractable migraine without mention of status migrainosus Screening for osteoporosis- Primary Special screening for [...] te sumatriptan (IMITREX) 50 mg tabletIndications:Migra ine TAKE ONE TABLET BY MOUTH FOR 1 DOSE NEEDED FOR MIGRAINE Reorder 09/11/2014 02/19/2015 documented as of this encounter Additional Health Concerns Infection Onset Date Last Indicated Resolved Time R/O COVID-19 05/15/2022 05/15/2022 05/20/2022 22:1 6 EDT R/O COVID-19 11/14/2022 11/14/2022 11/14/2022 19:1 6 EST documented as of this encounter Care Teams Program Development Manager Relationship Specialty Start Date End Date Jean Munoz MD [address] [place] [phone] PCP - General 12/31/08 Manny Rizzo MD [address] [place] [phone] 04/20/10 Afia Valle MD [address] [place] [address] [address] [place] [phone] Care Team Radiation Oncology 07/02/21 Jesi Leong [facility] [address] [place] [phone] Coat Room Attendant 12/24/21 09/20/22 Jesi Leong, [facility] [address] [place] [phone] Behavioral Health Coat Room AttendantRubber Mixer Care 10/19/22 01/23/24 documented as of this encounter
--- OUTSIDE RECORDS SUMMARY | 2024-06-10 07:24 | XMS_ITS | Encounter Summary ---
Author Organization [facility] Address [address] [place] [address] Care Team Providers Care Lab Specialist Name Role Phone Jean Munoz MD Primary Care Provider Manny Rizzo MD Unavailable Reason for Visit * Reason Comments Chronic Pain Encounter Details Date Type Department Care Team (Late st Contact Info) Description 10/04/2015 16:00 EST Office Visit [facility] [place] [address] [place] [address] Jean Munoz MD [address] [place] [phone] Chronic pain syndrome (Primary Dx); Cervicalgia; Chronic knee pain, unspecified laterality; Chronic back pain; Seasonal allergic rhinitis; Depression; Moderate persistent asthma without complication; Gastroesophageal reflux disease, esophagitis presence not specified; Restless legs syndrome; Major depressive disorder, recurrent, severe without psychotic features (CMS-HCC); Hesitancy Social History Tobacco Use Types Packs/Day [...] Reading Time Taken Comments Blood Pressure 132/76 10/04/2015 1606 EST Pulse 72 10/04/2015 1606 EST Temperature 36.8 ??C (98.3 ??F) 10/04/2015 1606 EST Respiratory Rate 16 10/04/2015 1606 EST Oxygen Saturation - - Inhaled Oxygen Concentration - - Weight 93 kg (205 lb) 10/04/2015 1606 EST Height 162.6 cm (5' 4) 10/04/2015 1606 EST Body Mass Index 35.19 10/04/2015 1606 EST documented in this encounter Functional Status [...] Dispensed Refills Start Date End Da te tamsulosin (FLOMAX) 0.4 mg capsuleIndications:Hesit eloise Take 1 Cap by mouth daily 90 Cap 1 10/04/2015 04/13/2016 sertraline (ZOLOFT) 100 mg tabletIndications:Major depressive disorder, recurrent, severe without psychotic features (HCC-CMS) Take 1 Tab by mouth daily TAKE TWO TABLETS BY MOUTH DAILY 180 Tab 1 10/04/2015 04/13/2016 rOPINIRole (REQUIP) 2 mg tabletIndications:Restle ss legs syndrome Take 1 Tab by mouth at bedtime TAKE ONE TABLET BY MOUTH AT BEDTIME 90 Tab 1 10/04/2015 04/13/2016 pregabalin (LYRICA) 150 mg capsuleIndications:Chron ic back pain Take 1 Cap by mouth 3 times daily Daily Max: 450 mg 270 Each 1 10/04/2015 04/13/2016 omeprazole (PRILOSEC) 40 mg capsuleIndications:Gastr oesophageal reflux disease, esophagitis presence not specified Take 1 Cap by mouth daily 90 Cap 1 10/04/2015 04/13/2016 nortriptyline (PAMELOR) 75 mg capsuleIndications:Depre ssion Take 1 Cap by mouth daily 90 Each 1 10/04/2015 04/13/2016 montelukast (SINGULAIR) 10 mg tabletIndications:Modera te persistent asthma without complication Take 1 Tab by mouth daily 90 Tab 1 10/04/2015 04/13/2016 fexofenadine (JUDITH) 180 mg tabletIndications:Season al allergic rhinitis Take 1 Tab by mouth daily 90 Tab 1 10/04/2015 04/13/2016 HYDROcodone-acetaminophe n (NORCO) 5-325 mg tabletIndications:Chroni c pain syndrome,Cervicalgia,Chr onic knee pain, unspecified laterality,Chronic back pain Take 1-2 Tabs by mouth every 6 hours as needed for up to 28 days for Pain Earliest Fill Date: 10/04/15 Daily Max: 8 Tabs 112 Tab 0 10/04/2015 12/26/2015 HYDROcodone-acetaminophe n (NORCO) 5-325 mg tabletIndications:Chroni c pain syndrome,Cervicalgia,Chr onic knee pain, unspecified laterality,Chronic back pain Take 1-2 Tabs by mouth every 6 hours as needed for up to 28 days for Pain Earliest Fill Date: 11/01/15 Daily Max: 8 Tabs 112 Tab 0 11/01/2015 12/26/2015 HYDROcodone-acetaminophe n (NORCO) 5-325 mg tabletIndications:Chroni c pain syndrome,Cervicalgia,Chr onic knee pain, unspecified laterality,Chronic back pain Take 1-2 Tabs by mouth every 6 hours as needed for up to 28 days for Pain Earliest Fill Date: 11/29/15 Daily Max: 8 Tabs 112 Tab 0 11/29/2015 02/20/2016 documented in this encounter Progress Notes * Jean Munoz MD - 10/10/2015 5749 EST Subjective: Patient ID: Liset Viera is an 54 y.o. female. Chief Complaint Patient presents with ??? Chronic Pain HPI Asthma Variable Chronic obstructive pulmonary disease stable Severe major depression without psychotic features Mood stable Living with partner Valente Moved to house in April Insomnia Variable Does not use Ambien every night, but 3-4x/week Chronic pain stable Needs refills Patient Active Problem List Diagnosis ??? Severe [...] MOUTH EVERY DAY 90 Tab 1 ??? fluticasone-salmeterol (ADVAIR HFA) [...] SIX HOURS NEEDED 45 g 2 ??? methadone (DOLOPHINE) 5 mg tablet Take 0.5 Tabs by mouth at bedtime Daily Max: 2.5 mg 14 Tab 0 ??? methylphenidate (RITALIN;METHYLIN) 20 mg tablet Take 2 tabs by mouth in the morning. Earliest Fill Date: 09/24/15 60 Tab 0 ??? methylphenidate (RITALIN;METHYLIN) 10 mg tablet Take one tab in the afternoon for narcolepsy Earliest Fill Date: 09/24/15 30 Tab 0 ??? mometasone (NASONEX) 50 mcg/actuation nasal spray Instill 2 Sprays into both nostrils daily 3 Inhaler 1 ??? ondansetron (ZOFRAN) 4 mg tablet Take one tablet by mouth daily as needed for nausea 30 Tab 0 ??? roflumilast (DALIRESP) 500 mcg tablet Take 1 Tab by mouth daily 90 Tab 3 ??? sumatriptan (IMITREX) 50 mg tablet Take 1 tablet by mouth as needed for migraine. Daily maximumdose: 100 mg. Patient averages 12 headaches per month. 9 Tab 2 ??? tiotropium bromide (SPIRIVA RESPIMAT) 1.25 mcg/actuation mist Inhale 2.5 mcg as directed daily 4 g 5 ??? zolpidem (AMBIEN) 5 mg tablet Take 1 Tab by mouth at bedtime as needed for Sleep Daily Max: 1 Tab 30 Tab 2 No current facility-administered medications on file prior [...] Objective: BP 132/76 mmHg Pulse 72 Temp(Src) 36.8 ??C (98.3 ??F) (Tympanic) Resp 16 Ht 162.6 cm (64) Wt 92.987 kg (205 lb) BMI 35.17 kg/m2 LMP 01/11/1987 Physical Exam deferred Assessment: Plan: Liset was seen today for chronic pain. Diagnoses and all orders for this visit: Chronic pain syndrome Cervicalgia Chronic knee pain, unspecified laterality Chronic back pain Orders: - HYDROcodone-acetaminophen (NORCO) 5-325 mg tablet; Take 1-2 Tabs by mouth every 6 hours as neededfor up to 28 days for Pain Earliest Fill Date: 11/29/15 Daily Max: 8 Tabs - HYDROcodone-acetaminophen (NORCO) 5-325 mg tablet; Take 1-2 Tabs by mouth every 6 hours as neededfor up to 28 days for Pain Earliest Fill Date: 11/01/15 Daily Max: 8 Tabs - HYDROcodone-acetaminophen (NORCO) 5-325 mg tablet; Take 1-2 Tabs by mouth every 6 hours as neededfor up to 28 days for Pain Earliest Fill Date: 10/04/15 Daily Max: 8 Tabs - pregabalin (LYRICA) 150 mg capsule; Take 1 Cap by mouth 3 times daily Daily Max: 450 mg Morphine equivalent 10 mg Seasonal allergic rhinitis Orders: - fexofenadine (JUDITH) 180 mg tablet; Take 1 Tab by mouth daily Depression Orders: - nortriptyline (PAMELOR) 75 mg capsule; Take 1 Cap by mouth daily stable Moderate persistent asthma without complication Orders: - montelukast (SINGULAIR) 10 mg tablet; Take 1 Tab by mouth daily Gastroesophageal reflux disease, esophagitis presence not specified Orders: - omeprazole (PRILOSEC) 40 mg capsule; Take 1 Cap by mouth daily Restless legs syndrome Orders: - rOPINIRole (REQUIP) 2 mg tablet; Take 1 Tab by mouth at bedtime TAKE ONE TABLET BY MOUTH AT BEDTIME Major depressive disorder, recurrent, severe without psychotic features Orders: - sertraline (ZOLOFT) 100 mg tablet; Take 1 Tab by mouth daily TAKE TWO TABLETS BY MOUTH DAILY Hesitancy Orders: - tamsulosin (FLOMAX) 0.4 mg capsule; Take 1 Cap by mouth daily Patient Education Topic: as above Method: Verbal Taught to: Patient Barriers: None Outcomes: Verbalized understanding Opiate surveillance: A VPMS([place] Prescription Monitoring System) report on this patient was printed and reviewed today to ensure the prescribing and dispensing of his medications is in accordance with the treatment plan. Methylphenidate is prescribed by Dr. Jordi Maharaj in 12 weeks (on 12/27/2015) for SERA. documented in this encounter Miscellaneous Notes * Assessment & Plan Note - Jean Munoz MD - 10/04/2015 1634 EST Associated Problem(s): Insomnia Variable Does not use Ambien every night, but 3-4x/week * Assessment & Plan Note - Jean Munoz MD - 10/04/2015 1633 EST Associated Problem(s): Major depressive disorder, recurrent, severe without psychotic features (HCC-CMS) Mood stable Living with partner Valente Moved to house in April * Assessment & Plan Note - Jean Munoz MD - 10/04/2015 1632 EST Associated Problem(s): Panlobular emphysema (HCC-CMS) stable * Assessment & Plan Note - Jean Munoz MD - 10/04/2015 1631 EST Associated Problem(s): Asthma (Resolved 03/03/2017) Variable documented in this encounter Plan of Treatment Upcoming Encounters Date Type Department Care Team (Late st Contact Info) Description 06/29/2024 14:15 EDT Office Visit [facility] [place] [address] [place] [address] Jean Munoz MD [address] [place] [address] documented as of this encounter Visit Diagnoses Diagnosis Chronic pain syndrome- Primary Cervicalgia Chronic knee pain, unspecified laterality Chronic back pain Backache, unspecified Seasonal allergic rhinitis Allergic rhinitis, cause unspecified Depression Depressive disorder, not elsewhere classified Moderate persistent asthma without complication Unspecified asthma Gastroesophageal reflux disease, esophagitis presence not specified Restless legs syndrome Restless legs syndrome (RLS) Major depressive disorder, recurrent, severe without psychotic features ([facility]- CMS) Major depressive disorder, recurrent episode, severe, without mention of psychotic behavior Hesitancy Urinary hesitancy Screening for osteoporosis- Primary [...] 28 days for Pain Earliest Fill Date: 06/17/15 Daily Max: 8 Tabs Reorder 06/17/2015 10/04/2015 fexofenadine (JUDITH) 180 mg tabletIndications:Season al allergic rhinitis Take 1 Tab by mouth daily Reorder 04/10/2015 10/04/2015 montelukast (SINGULAIR) 10 mg tablet TAKE ONE TABLET BY MOUTH ONE TIME DAILY Reorder 04/10/2015 10/04/2015 nortriptyline (PAMELOR) 75 mg capsuleIndications:Depre ssion Take 1 Cap by mouth daily Reorder 04/10/2015 10/04/2015 omeprazole (PRILOSEC) 40 mg capsule Take 1 Cap by mouth daily Reorder 04/10/2015 10/04/2015 pregabalin (LYRICA) 150 mg capsuleIndications:Chron ic back pain Take 1 Cap by mouth 3 times daily Daily Max: 450 mg Reorder 04/10/2015 10/04/2015 rOPINIRole (REQUIP) 2 mg tablet TAKE ONE TABLET BY MOUTH AT BEDTIME Reorder 04/10/2015 10/04/2015 sertraline (ZOLOFT) 100 mg tablet TAKE TWO TABLETS BY MOUTH DAILY Reorder 04/10/2015 10/04/2015 tamsulosin (FLOMAX) 0.4 mg capsule Take 1 Cap by mouth daily. Reorder 05/25/2014 10/04/2015 documented as of this encounter Care Teams Lab Specialist Relationship Specialty Start Date End Date Jean Munoz MD [address] [place] [phone] PCP - General 12/31/08 Manny Rizzo MD [address] [place] [phone] 04/20/10 documented as of this encounter
--- OUTSIDE RECORDS SUMMARY | 2024-06-10 07:24 | XMS_ITS | Encounter Summary ---
Author Organization [facility] Address [address] [place] [address] Care Team Providers Care Cigar Making Supervisor Name Role Phone Jean Munoz MD Primary Care Provider Manny Rizzo MD Unavailable Reason for Visit * Reason Onset Date Comments Medication Management 06/17/2015 Encounter Details Date Type Department Care Team (Late st Contact Info) Description 06/17/2015 Telephone [facility] [place] [address] [place] [address] Jean Munoz MD [address] [place] [phone] Medication Management Social History Tobacco [...] 12 headaches per month. 9 Tab 2 06/17/2015 12/18/2015 documented in this encounter Miscellaneous Notes * Telephone Encounter - Jean Munoz MD - 06/17/2015 1607 EDT escript done * Telephone Encounter - Kamila Garcia RN - 06/17/2015 1537 EDT Noted. New Rx pended for completion, signature, printing and faxing. * Telephone Encounter - Imtiaz Camara - 06/17/2015 1521 EDT Komal calling to have pt's Rx for Sumatriptan resent with the following stated on Rx: Max dose per day and pt averages 12 headaches per month Please fax new Rx documented in this encounter Plan of Treatment Upcoming Encounters Date Type Department Care Team (Late st Contact Info) Description 06/29/2024 14:15 EDT Office Visit [address] [address] Jean Munoz MD [address] [place] [address] documented as of this encounter [...] mg tabletIndications:Other type of migraine Take 1 Tab by mouth once as needed for up to 1 dose for Migraine Reorder 06/17/2015 06/17/2015 documented as of this encounter Care Teams Cigar Making Supervisor Relationship Specialty Start Date End Date Jean Munoz MD [address] [place] [phone] PCP - General 12/31/08 Manny Rizzo MD [address] [place] [address] 04/20/10 documented as of this encounter
--- OUTSIDE RECORDS SUMMARY | 2024-06-10 07:24 | XMS_ITS | Encounter Summary ---
Author Organization [facility] Address [address] [place] [address] Care Team Providers Care Mechanical Service Representative Name Role Phone Jean Munoz MD Primary Care Provider Manny Rizzo MD Unavailable Encounter Details Date Type Department Care Team (Late st Contact Info) Description 06/04/2015 Abstract [facility] [address] [place] [address] Jean Munoz MD [address] [place] [address] Social History Tobacco Use Types [...] Office Visit [facility] [address] [place] [address] Jean Munoz MD [address] [place] [phone] documented as of this encounter Visit Diagnoses Not on filedocumented in this encounter Care Teams Mechanical Service Representative Relationship Specialty Start Date End Date Jean Munoz MD [address] [place] [phone] PCP - General 12/31/08 Manny Rizzo MD [address] [place] [address] 04/20/10 documented as of this encounter
--- OUTSIDE RECORDS SUMMARY | 2024-06-10 07:24 | XMS_ITS | Encounter Summary ---
Author Organization [facility] Address [address] [place] [address] Care Team Providers Care Template Clerk Name Role Phone Jean Mnuoz MD Primary Care Provider Manny Rizzo MD Unavailable Reason for Visit * Reason Onset Date Comments Medications Refill 07/29/2015 Encounter Details Date Type Department Care Team (Late st Contact Info) Description 07/29/2015 Refill [facility] - [address] [phone] Tiana Bacon [address] [place] [phone] Medications Refill Social History Tobacco Use [...] Daily Max: 2 Tabs 60 Tab 0 07/29/2015 08/26/2015 methylphenidate (RITALIN;METHYLIN) 10 mg tablet Take one tab in the afternoon for narcolepsy Earliest Fill Date: 07/29/15 30 Tab 0 07/29/2015 08/26/2015 documented in this encounter Miscellaneous Notes * Telephone Encounter - Corrina Ac RN - 07/29/2015 1419 EST Left message for pt to let know (ritalin) prescriptions ready for pickling grader at the Sleep Program. 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 documented in this encounter Plan of Treatment Upcoming Encounters Date Type Department Care Team (Late st Contact Info) Description 06/29/2024 14:15 EDT Office Visit [facility] Medicine [facility] [address] [place] [address] Jean Munoz MD [address] [place] [phone] documented as of this encounter Visit Diagnoses Not on filedocumented in this encounter Discontinued Medications Medication Sig Discontinue Reason Start Date End Da te methylphenidate (RITALIN;METHYLIN) 10 mg tablet Take one tab in the afternoon for narcolepsy Earliest Fill Date: 07/01/15 Reorder 07/01/2015 07/29/2015 methylphenidate (RITALIN;METHYLIN) 20 mg tablet Take 2 Tabs by mouth daily Earliest Fill Date: 07/01/15 Daily Max: 2 Tabs Reorder 07/01/2015 07/29/2015 documented as of this encounter Care Teams Template Clerk Relationship Specialty Start Date End Date Jean Munoz MD [address] [place] [phone] PCP - General 12/31/08 Manny Rizzo MD [address] [place] [address] 04/20/10 documented as of this encounter
--- OUTSIDE RECORDS SUMMARY | 2024-06-10 07:24 | XMS_ITS | Encounter Summary ---
Author Organization [facility] Address [address] [place] [address] Care Team Providers Care Director Adult Name Role Phone Jean Munoz MD Primary Care Provider Manny Rizzo MD Unavailable Reason for Visit * Reason Onset Date Comments Medications Refill 08/26/2015 Encounter Details Date Type Department Care Team (Late st Contact Info) Description 08/26/2015 Telephone [facility] - [address] [phone] Tiana Bacon [address] [place] [address] Medications Refill Social History Tobacco [...] mouth in the morning. 60 Tab 0 08/26/2015 09/23/2015 methylphenidate (RITALIN;METHYLIN) 10 mg tablet Take one tab in the afternoon for narcolepsy 30 Tab 0 08/26/2015 09/23/2015 methylphenidate (RITALIN;METHYLIN) 20 mg tablet Take 1 tab in the afternoon for narcolepsy. 30 Tab 0 08/26/2015 08/26/2015 documented in this encounter Miscellaneous Notes * Telephone Encounter - Tiana Bacon MD - 08/26/2015 0926 EST Patient called to grape picker refill on 08/26/2015-- to be picked up this afternoon. A Rx for methylphenidate 20 mg QAM and 10 mg in the afternoon was made. NB. A Rx for methylphenidate 20 mg -1 tab in the afternoon was created in error and discontinued. Tiana Bacon MD 08/26/2015 9:49 * Telephone Encounter - Barbara Gimenez - 08/26/2015 0916 EST PT needs refill on Ritalin 20mg and Ritalin 10mg. PT will be in [place] to grape picker at front deskby 2:00 today. documented in this encounter Plan of Treatment Upcoming Encounters Date Type Department Care Team (Late st Contact Info) Description 06/29/2024 14:15 EDT Office Visit [facility] [address] [place], [place] [phone] Jean Munoz MD [address] [place] [phone] documented as of this encounter Visit Diagnoses Not on filedocumented in this encounter Discontinued Medications Medication Sig Discontinue Reason Start Date End Da te methylphenidate (RITALIN;METHYLIN) 20 mg tablet Take 2 Tabs by mouth daily Daily Max: 2 Tabs Reorder 07/29/2015 08/26/2015 methylphenidate (RITALIN;METHYLIN) 10 mg tablet Take one tab in the afternoon for narcolepsy Earliest Fill Date: 07/29/15 Reorder 07/29/2015 08/26/2015 methylphenidate (RITALIN;METHYLIN) 20 mg tablet Take 1 tab in the afternoon for narcolepsy. Error 08/26/2015 08/26/2015 methylphenidate (RITALIN;METHYLIN) 20 mg tablet Take 20 mg by mouth 2 times daily 08/26/2015 documented as of this encounter Historical Medications * This list may reflect changes made after this encounter. Medication Sig Dispensed Refills Start Date End Date methylphenidate (RITALIN;METHYLIN) 20 mg tablet Take 20 mg by mouth 2 times daily 08/26/2015 added in this encounter Care Teams Director Adult Relationship Specialty Start Date End Date Jean Munoz MD [address] [place] [phone] PCP - General 12/31/08 Manny Rizzo MD [address] [place] [phone] 04/20/10 documented as of this encounter
--- OUTSIDE RECORDS SUMMARY | 2024-06-10 07:24 | XMS_ITS | Encounter Summary ---
Author Organization [facility] Address [address] [place] [address] Care Team Providers Care Lamp Cleaner Street Light Name Role Phone Jean Munoz MD Primary Care Provider Manny Rizzo MD Unavailable Reason for Visit * Reason Onset Date Comments Medications Refill 04/08/2015 Encounter Details Date Type Department Care Team (Late st Contact Info) Description 04/08/2015 Telephone [facility] - [address] [phone] Tiana Bacon [address] [place] [address] Medications Refill Social History Tobacco [...] the afternoon for narcolepsy 30 Tab 0 04/08/2015 05/06/2015 methylphenidate (RITALIN;METHYLIN) 20 mg tablet Take 2 Tabs by mouth daily Daily Max: 2 Tabs 60 Tab 0 04/08/2015 05/06/2015 documented in this encounter Miscellaneous Notes * Telephone Encounter - Leann Domingo - 04/08/2015 1049 EDT Patient needs a refill for Ritalin 20 mg 2 tabs every morning and Ritalin 10 mg 1 tab every morning. Patient plans on picking these up. She will be in town tomorrow. documented in this encounter Plan of Treatment Upcoming Encounters Date Type Department Care Team (Late st Contact Info) Description 06/29/2024 14:15 EDT Office Visit [facility] Medicine [facility] [address] [place] [address] Jean Munoz MD [address] [place] [phone] documented as of this encounter Visit Diagnoses Not on filedocumented in this encounter Discontinued Medications Medication Sig Discontinue Reason Start Date End Da te methylphenidate (RITALIN;METHYLIN) 20 mg tablet Take 2 Tabs by mouth daily Daily Max: 2 Tabs Reorder 03/11/2015 04/08/2015 methylphenidate (RITALIN;METHYLIN) 10 mg tablet Take one tab in the afternoon for narcolepsy Reorder 03/11/2015 04/08/2015 documented as of this encounter Care Teams Lamp Cleaner Street Light Relationship Specialty Start Date End Date Jean Munoz MD [address] [place] [address] PCP - General 12/31/08 Manny Rizzo MD [address] [place] [phone] 04/20/10 documented as of this encounter
--- OUTSIDE RECORDS SUMMARY | 2024-06-10 07:24 | XMS_ITS | Encounter Summary ---
Author Organization [facility] Address [address] [place] [address] Care Team Providers Care Process Checker Name Role Phone Jean Munoz MD Primary Care Provider Manny Rizzo MD Unavailable Reason for Visit * Reason Onset Date Comments Prior Auth, Medication 09/16/2015 Spiriva Encounter Details Date Type Department Care Team (Late st Contact Info) Description 09/16/2015 Telephone [facility] [address] [place] [address] Kaitlyn Montero LPN [address] [place] [address] Prior Auth, Medication (Spiriva ) Social History [...] Telephone Encounter - Kaitlyn Montero LPN - 09/16/2015 0918 EST Medication: Spiriva Aer Respimat Insurance Co: [place] medicaid Approval # (if applicable): [id number] Approval dates: 09/10/2015- 09/10/2016 Name of Pharmacy notified: [facility] Spoke to pharmacist about approval. Pharmacist stated she will call patient when medication is ready. documented in this encounter Plan of Treatment Upcoming Encounters Date Type Department Care Team (Late st Contact Info) Description 06/29/2024 14:15 EDT Office Visit [facility] Medicine [facility] [address] [place] [address] Jean Munoz MD [address] [place] [phone] documented as of this encounter Visit Diagnoses Not on filedocumented in this encounter Care Teams Process Checker Relationship Specialty Start Date End Date Jean Munoz MD [address] [place] [phone] PCP - General 12/31/08 Manny Rizzo MD [address] [place] [phone] 04/20/10 documented as of this encounter
--- OUTSIDE RECORDS SUMMARY | 2024-06-10 07:24 | XMS_ITS | Encounter Summary ---
Author Organization [facility] Address [address] [place] [address] Care Team Providers Care Review Assistant Name Role Phone Jean Munoz MD Primary Care Provider Manny Rizzo MD Unavailable Reason for Visit * Reason Onset Date Comments Medications Refill 09/23/2015 Encounter Details Date Type Department Care Team (Late st Contact Info) Description 09/23/2015 Refill [facility] - [address] [id number] Tiana Bacon [address] [place] [phone] Medications Refill Social History Tobacco Use [...] Earliest Fill Date: 09/24/15 30 Tab 0 09/24/2015 10/21/2015 methylphenidate (RITALIN;METHYLIN) 20 mg tablet Take 2 tabs by mouth in the morning. Earliest Fill Date: 09/24/15 60 Tab 0 09/24/2015 10/21/2015 documented in this encounter Miscellaneous Notes * Telephone Encounter - Corrina Ac RN - 09/24/2015 1050 EST Pt made aware ritalin prescriptions ready for picking crew supervisor. * Telephone Encounter - Corrina Ac RN - 09/23/2015 0833 EST Called pt and let her know I will give her a call tomorrow to let her know when her prescriptions are ready. * Telephone Encounter - Barbara Gimenez - 09/23/2015 0816 EST PT needs refill on Ritalin 20mg and Ritalin 10mg. 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 documented in this encounter Plan of Treatment Upcoming Encounters Date Type Department Care Team (Late st Contact Info) Description 06/29/2024 14:15 EDT Office Visit [facility] [place] 2[place] [address] [place] [address] Jean Munoz MD [address] [place] [phone] documented as of this encounter Visit Diagnoses Not on filedocumented in this encounter Discontinued Medications Medication Sig Discontinue Reason Start Date End Da te methylphenidate (RITALIN;METHYLIN) 20 mg tablet Take 2 tabs by mouth in the morning. Reorder 08/26/2015 09/23/2015 methylphenidate (RITALIN;METHYLIN) 10 mg tablet Take one tab in the afternoon for narcolepsy Reorder 08/26/2015 09/23/2015 documented as of this encounter Care Teams Review Assistant Relationship Specialty Start Date End Date Jean Munoz MD [address] [place] [phone] PCP - General 12/31/08 Manny Rizzo MD [address] [place] [phone] 04/20/10 documented as of this encounter
--- OUTSIDE RECORDS SUMMARY | 2024-06-10 07:24 | XMS_ITS | Encounter Summary ---
Author Organization [facility] Address [address] [place] [address] Care Team Providers Care Marketing Development Specialist Name Role Phone Jean Munoz MD Primary Care Provider Manny Rizzo MD Unavailable Reason for Visit * Reason Comments Chronic Pain Encounter Details Date Type Department Care Team (Late st Contact Info) Description 09/09/2015 13:15 EST Office Visit [facility] [address] [place] [address] Jean Munoz MD [address] [place] [phone] Chronic pain syndrome (Primary Dx); Cervicalgia; Chronic knee pain, unspecified laterality; Chronic back pain; Need for influenza vaccination; Need for pneumococcal vaccination; Chronic obstructive pulmonary disease, unspecified COPD type ([facility]) ([facility]) Discharge Disposition: Auto Discharge Social History Tobacco [...] Sign Reading Time Taken Comments Blood Pressure 116/80 09/09/2015 1322 EST Pulse 76 09/09/2015 1322 EST Temperature 36.5 ??C (97.7 ??F) 09/09/2015 1322 EST Respiratory Rate 20 09/09/2015 1322 EST Oxygen Saturation - - Inhaled Oxygen [...] Discharge Diagnoses Diagnosis G89.4 Chronic pain syndrome-G89.4[ICD-10-CM] M54.2 Cervicalgia-M54.2[ICD-10-CM] M25.569 Pain in unspecified knee-M25.569[ICD-10-CM] J44.9 Chronic obstructive pulmonary disease, unspecified-J44.9[ICD-10-CM] G89.29 Other chronic pain-G89.29[ICD-10-CM] Z23 Encounter for immunization-Z23[ICD-10-CM] documented in this encounter Ordered Prescriptions Prescription Sig Dispensed Refills Start Date End Da te tiotropium bromide (SPIRIVA RESPIMAT) 1.25 mcg/actuation mistIndications:Chronic obstructive pulmonary disease, unspecified COPD type ([facility]) Inhale 2.5 mcg as directed daily 4 g 5 09/09/2015 04/13/2016 methadone (DOLOPHINE) 5 mg tabletIndications:Chronic pain syndrome,Cervicalgia,Hot Roller majo knee pain, unspecified laterality,Chronic back pain Take 0.5 Tabs by mouth at bedtime Daily Max: 2.5 mg 14 Tab 0 09/09/2015 12/26/2015 HYDROcodone-acetaminophen (NORCO) 5-325 mg tabletIndications:Chronic pain syndrome,Cervicalgia,Hot Roller majo knee pain, unspecified laterality,Chronic back pain Take 1 tab by mouth in 8 AM and at 4 PM 56 Tab 0 09/09/2015 09/12/2015 documented in this encounter Discharge Disposition Disposition Code Departure Means Destination Auto Discharge documented in this encounter Progress Notes * Kaitlyn Montero LPN - 09/09/2015 1410 EST Flu and Prevnar 13 given as ordered per Dr. Munoz. See immunization record for details. * Jean Munoz MD - 09/09/2015 1330 EST Subjective: Patient ID: Liset Viera is an 54 y.o. female. Chief Complaint Patient presents with ??? Chronic Pain HPI Here for F/U chronic pain Pain control about the same Now willing to change to methadone States that she discussed this with her who is now more agreeable Also talked with friend who has had good results with methadone Also wants Spiriva Respimat, due to intolerance of Handihaler Did well with Advair switch Wants shots Patient Active Problem List Diagnosis ??? Severe [...] Fill Date: 07/15/15 Daily Max: 8 Tabs 112 Tab 0 ??? HYDROcodone-acetaminophen (NORCO) 5-325 mg tablet Take 1-2 Tabs by mouth every 6 hours as needed for up to 28 days for Pain Earliest Fill Date: 06/17/15 Daily Max: 8 Tabs 112 Tab 0 [...] NEEDED 45 g 2 ??? methylphenidate (RITALIN;METHYLIN) 10 mg tablet Take one tab in the afternoon for narcolepsy 30Tab 0 ??? methylphenidate (RITALIN;METHYLIN) 20 mg tablet Take 2 tabs by mouth in the morning. 60 Tab 0 ??? mometasone (NASONEX) 50 [...] rarely ROS - See HPI Objective: BP 116/80 mmHg Pulse 76 Temp(Src) 36.5 ??C (97.7 ??F) (Tympanic) Resp 20 LMP 01/11/1987 Physical Exam deferred Assessment: Plan: Liset was seen today for chronic pain. Diagnoses and all orders for this visit: Chronic pain syndrome Cervicalgia Chronic knee pain, unspecified laterality Chronic back pain Orders: - HYDROcodone-acetaminophen (NORCO) 5-325 mg tablet; Take 1 tab by mouth in 8 AM and at 4 PM - methadone (DOLOPHINE) 5 mg tablet; Take 0.5 Tabs by mouth at bedtime Daily Max: 2.5 mg Discussed risks and benefits methadone Discussed importance of slow start with methadone and gradual increase in dose Total dose of hydrocodone daily 20 mg approximately (she states that she occasionally takes more than 4 per day) This should be equivalent to less than 5 mg methadone, therefore start with methadone 2.5 mg daily,may use hydrocodone up to 2 per day for now Recheck at next visit Need for influenza vaccination Orders: - [id number] - Influenza Vaccine =>3YO Quad Preservative Free IM Need for pneumococcal vaccination Orders: - Pneumococcal conjugate vaccine 13-valent IM Chronic obstructive pulmonary disease, unspecified COPD type Orders: - tiotropium bromide (SPIRIVA RESPIMAT) 1.25 mcg/actuation mist; Inhale 2.5 mcg as directed daily Patient Education Topic: as above Method: Verbal Taught to: Patient Barriers: None Outcomes: Verbalized understanding Opiate surveillance: A VPMS([place] Prescription Monitoring System) report on this patient was printed and reviewed today to ensure the prescribing and dispensing of his medications is in accordance with the treatment plan. She has been prescribed methylphenidate by Dr. Bacon for narcolepsy. SERA 4 weeks documented in this encounter Plan of Treatment Upcoming Encounters Date Type Department Care Team (Late st Contact Info) Description 06/29/2024 14:15 EDT Office Visit [address] [address] Jean Munoz MD [address] [place] [phone] documented as of this encounter Visit Diagnoses Diagnosis Chronic pain syndrome- Primary Cervicalgia Chronic knee pain, unspecified laterality Chronic back pain Backache, unspecified Need for influenza vaccination Need for prophylactic vaccination and inoculation against influenza Need for pneumococcal vaccination Need for prophylactic vaccination against streptococcus pneumoniae (pneumococcus) Chronic obstructive pulmonary disease, unspecified COPD type ([facility]) Screening for osteoporosis- Primary Special [...] Reason Start Date End Da te tiotropium (SPIRIVA WITH HANDIHALER) 18 mcg inhalation capsule INHALE ONE CAP VIA HANDIHALER EVERY DAY DIRECTED Alternate therapy 04/10/2015 09/09/2015 HYDROcodone-acetaminoph en (NORCO) 5-325 mg tabletIndications:Chron ic pain syndrome,Cervicalgia,Ch ronic knee pain, unspecified laterality,Chronic back pain Take 1-2 Tabs by mouth every 6 hours as needed for up to 28 days for Pain Earliest Fill Date: 08/12/15 Daily Max: 8 Tabs Reorder 08/12/2015 09/09/2015 documented as of this encounter Orders Immunization/Injection Count Last Ordered Date First Ordered Date INFLUENZA VACCINE =>3YO QUAD PRESERVATIVE FREE IM 1 09/09/2015 PNEUMOCOCCAL CONJ VACC PCV13 IM 1 5 documented in this encounter Care Teams Marketing Development Specialist Relationship Specialty Start Date End Date Jean Munoz MD [address] [place] [phone] PCP - General 12/31/08 Manny Rizzo MD [address] [place] [phone] 04/20/10 documented as of this encounter
--- OUTSIDE RECORDS SUMMARY | 2024-06-10 07:24 | XMS_ITS | Encounter Summary ---
Author Organization [facility] Address [address] [place] [address] Care Team Providers Care Reducing System Operator Name Role Phone Jean Munoz MD Primary Care Provider Manny Rizzo MD Unavailable Reason for Visit * Reason Onset Date Comments Medications Refill 04/10/2015 Encounter Details Date Type Department Care Team (Late st Contact Info) Description 04/10/2015 Refill [facility] [address] [place], [place] [phone] Jean Munoz MD [address] [place] [phone] Medications Refill Social History Tobacco [...] Dispensed Refills Start Date End Da te roflumilast (DALIRESP) 500 mcg tabletIndications:Staff Respiratory Therapist majo obstructive pulmonary disease, unspecified COPD type ([facility]) Take 1 Tab by mouth daily 90 Tab 3 04/29/2015 04/13/2016 baclofen (LIORESAL) 10 mg tabletIndications:Staff Respiratory Therapist majo pain syndrome Take 1 Tab by mouth 3 times daily as needed (mucles tightness) 180 Tab 3 04/29/2015 04/13/2016 levalbuterol (XOPENEX HFA) 45 mcg/actuation inhaler INHALE TWO PUFFS BY MOUTH EVERY SIX HOURS NEEDED 45 g 2 04/10/2015 04/13/2016 tiotropium (SPIRIVA WITH HANDIHALER) 18 mcg inhalation capsule INHALE ONE CAP VIA HANDIHALER EVERY DAY DIRECTED 90 Cap 1 04/10/2015 09/09/2015 sertraline (ZOLOFT) 100 mg tablet TAKE TWO TABLETS BY MOUTH DAILY 180 Tab 1 04/10/2015 10/04/2015 rOPINIRole (REQUIP) 2 mg tablet TAKE ONE TABLET BY MOUTH AT BEDTIME 90 Tab 1 04/10/2015 10/04/2015 pregabalin (LYRICA) 150 mg capsuleIndications:Chr onic back pain Take 1 Cap by mouth 3 times daily Daily Max: 450 mg 270 Each 1 04/10/2015 10/04/2015 ondansetron (ZOFRAN) 4 mg tablet Take 1 Tab by mouth daily as needed for Nausea 30 Tab 1 04/10/2015 08/20/2015 omeprazole (PRILOSEC) 40 mg capsule Take 1 Cap by mouth daily 90 Cap 1 04/10/2015 10/04/2015 nortriptyline (PAMELOR) 75 mg capsuleIndications:Dep ression Take 1 Cap by mouth daily 90 Each 1 04/10/2015 10/04/2015 montelukast (SINGULAIR) 10 mg tablet TAKE ONE TABLET BY MOUTH ONE TIME DAILY 90 Tab 1 04/10/2015 10/04/2015 mometasone (NASONEX) 50 mcg/actuation nasal sprayIndications:Seaso nal allergic rhinitis Instill 2 Sprays into both nostrils daily 3 Inhaler 1 04/10/2015 04/13/2016 ipratropium-albuterol (DUONEB) 0.5 mg-3 mg(2.5 mg base)/3 mL nebulizer solution Take 3 mL by nebulization every 4 hours as needed for Wheezing 3 mL 3 04/10/2015 04/13/2016 fexofenadine (JUDITH) 180 mg tabletIndications:Seas onal allergic rhinitis Take 1 Tab by mouth daily 90 Tab 1 04/10/2015 10/04/2015 doxycycline (VIBRA-TABS) 100 mg tabletIndications:Elaine cea TAKE 1 TABLET BY MOUTH EVERY DAY 90 Tab 1 04/10/2015 01/17/2016 fluticasone-salmeterol (ADVAIR HFA) 230-21 mcg/actuation inhaler INHALE TWO PUFFS BY MOUTH TWICE DAILY as directed 3 Inhaler 3 04/10/2015 04/13/2016 documented in this encounter Miscellaneous Notes * Telephone Encounter - Jean Munoz MD - 04/29/2015 1109 EDT escript done, please notify patient, thanks * Telephone Encounter - Jennifer Iniguez - 04/27/2015 1005 EDT Renay phoned into pharmacy. * Telephone Encounter - Yadira Mccauley RN - 04/10/[address] Munoz note to pt. Reconciled med list with patient. She wonders if Dr. Munoz will prescribe the Daliresp; she states her staking engineer prescribed this in the past and only sees this provider if there is a problem. * Telephone Encounter - Jean Munoz MD - 04/10/2015 1455 EDT We did not order any meds yesterday Scripts done today for hydrocodone Please reconcile meds with patient and renew all Rx for 3 months with 3 RF except for meds managed by other providers (ie Ritalin, eye drops), thanks * Telephone Encounter - Rukhsana Molina - 04/10/2015 1304 EDT Pt called to say that the pharmacy got all her scripts from yesterday but did not get the hydrocodone script. I do not see anything pended for any medications at all from yesterday (however computerswere down). Pended hydrocodone script for signature. Please call pt to grain picker when signed. Pt stated Dr Munoz was going to fax the script however the pharmacy cannot except a fax documented in this encounter Plan of Treatment Upcoming Encounters Date Type Department Care Team (Late st Contact Info) Description 06/29/2024 14:15 EDT Office Visit [facility] [address] [place] [address] Jean Munoz MD [address] [place] [phone] documented as of this encounter Visit Diagnoses Diagnosis Chronic pain syndrome- Primary Cervicalgia Rosacea Seasonal allergic rhinitis Allergic rhinitis, cause unspecified Depression Depressive disorder, not elsewhere classified Chronic back pain Backache, unspecified Chronic obstructive pulmonary disease, unspecified COPD type ([facility]) Screening for osteoporosis- Primary Special screening [...] Start Date End Da te ADVAIR HFA 230-21 mcg/actuation inhaler INHALE TWO PUFFS BY MOUTH TWICE DAILY as directed Reorder 02/12/2015 04/10/2015 doxycycline (VIBRA-TABS) 100 mg tabletIndications:Elaine cea TAKE 1 TABLET BY MOUTH EVERY DAY Reorder 01/15/2015 04/10/2015 fexofenadine (JUDITH) 180 mg tabletIndications:Seas onal allergic rhinitis Take 1 Tab by mouth daily. Reorder 12/13/2013 04/10/2015 ipratropium-albuterol (DUONEB) 0.5 mg-3 mg(2.5 mg base)/3 mL nebulizer solutionIndications:As thma,COPD (chronic obstructive pulmonary disease) ([facility]) Take 3 mL by nebulization every 4 hours as needed for Wheezing. Reorder 02/16/2014 04/10/2015 mometasone (NASONEX) 50 mcg/actuation nasal sprayIndications:Seaso nal allergic rhinitis 2 Sprays by nasal route daily. Reorder 12/13/2013 04/10/2015 montelukast (SINGULAIR) 10 mg tablet TAKE ONE TABLET BY MOUTH ONE TIME DAILY Reorder 02/12/2015 04/10/2015 nortriptyline (PAMELOR) 75 mg capsuleIndications:Dep ression Take 1 Cap by mouth daily. Reorder 12/13/2013 04/10/2015 omeprazole (PRILOSEC) 40 mg capsuleIndications:Gas troesophageal reflux disease Take 1 Cap by mouth daily. Reorder 03/30/2014 04/10/2015 ondansetron (ZOFRAN) 4 mg tabletIndications:Benja roesophageal reflux disease Take 1 Tab by mouth daily as needed for Nausea. Reorder 12/13/2013 04/10/2015 pregabalin (LYRICA) 150 mg capsuleIndications:Chr onic back pain Take 1 Cap by mouth 3 times daily. Reorder 10/08/2014 04/10/2015 rOPINIRole (REQUIP) 2 mg tabletIndications:Inso mnia TAKE ONE TABLET BY MOUTH AT BEDTIME Reorder 01/15/2015 04/10/2015 sertraline (ZOLOFT) 100 mg tablet TAKE TWO TABLETS BY MOUTH DAILY Reorder 02/05/2015 04/10/2015 SPIRIVA WITH HANDIHALER 18 mcg inhalation capsule INHALE ONE CAP VIA HANDIHALER EVERY DAY DIRECTED Reorder 02/12/2015 04/10/2015 XOPENEX HFA 45 mcg/actuation inhaler INHALE TWO PUFFS BY MOUTH EVERY SIX HOURS NEEDED Reorder 02/12/2015 04/10/2015 baclofen (LIORESAL) 10 mg tabletIndications:Low back pain Take 1 Tab by mouth 3 times daily as needed (mucles tightness). Reorder 12/13/2013 04/10/2015 DALIRESP 500 mcg tablet TAKE ONE TABLET BY MOUTH ONE TIME DAILY Reorder 03/30/2014 04/10/2015 documented as of this encounter Care Teams Reducing System Operator Relationship Specialty Start Date End Date Jean Munoz MD [address] [place] [phone] PCP - General 12/31/08 Manny Rizzo MD [address] [place] [phone] 04/20/10 documented as of this encounter
--- OUTSIDE RECORDS SUMMARY | 2024-06-10 07:24 | XMS_ITS | Encounter Summary ---
Author Organization [facility] Address [address] [place] [address] Care Team Providers Care Senior Director Name Role Phone Jean Munoz MD Primary Care Provider Manny Rizzo MD Unavailable Reason for Visit * Reason Comments Chronic Pain Encounter Details Date Type Department Care Team (Late st Contact Info) Description 06/17/2015 14:15 EDT Office Visit [facility] [address] [place], [place] [phone] Jean Munoz MD [address] [place] [phone] Chronic pain syndrome (Primary Dx); Other type of migraine; Other insomnia; Cervicalgia; Chronic knee pain, unspecified laterality; Chronic back pain Social History Tobacco Use Types Packs/Day Years [...] Reading Time Taken Comments Blood Pressure 132/76 06/17/2015 1418 EDT Pulse 76 06/17/2015 1418 EDT Temperature 36.7 ??C (98 ??F) 06/17/2015 1418 EDT Respiratory Rate 17 06/17/2015 1418 EDT Oxygen Saturation - - Inhaled Oxygen Concentration - - Weight 92.1 kg (203 lb) 06/17/2015 1418 EDT Height - - Body Mass Index 34.84 04/10/2015 0857 EDT documented in this encounter [...] te HYDROcodone-acetaminophen (NORCO) 5-325 mg tabletIndications:Chronic pain syndrome,Cervicalgia,Sign Poster majo knee pain, unspecified laterality,Chronic back pain Take 1-2 Tabs by mouth every 6 hours as needed for up to 28 days for Pain Earliest Fill Date: 06/17/15 Daily Max: 8 Tabs 112 Tab 0 06/17/2015 10/04/2015 HYDROcodone-acetaminophen (NORCO) 5-325 mg tabletIndications:Chronic pain syndrome,Cervicalgia,Sign Poster majo knee pain, unspecified laterality,Chronic back pain Take 1-2 Tabs by mouth every 6 hours as needed for up to 28 days for Pain Earliest Fill Date: 07/15/15 Daily Max: 8 Tabs 112 Tab 0 07/15/2015 09/12/2015 HYDROcodone-acetaminophen (NORCO) 5-325 mg tabletIndications:Chronic pain syndrome,Cervicalgia,Sign Poster majo knee pain, unspecified laterality,Chronic back pain Take 1-2 Tabs by mouth every 6 hours as needed for up to 28 days for Pain Earliest Fill Date: 08/12/15 Daily Max: 8 Tabs 112 Tab 0 08/12/2015 09/09/2015 zolpidem (AMBIEN) 5 mg tabletIndications:Other insomnia Take 1 Tab by mouth at bedtime as needed for Sleep Daily Max: 1 Tab 30 Tab 2 06/17/2015 10/24/2015 sumatriptan (IMITREX) 50 mg tabletIndications:Other type of migraine Take 1 Tab by mouth once as needed for up to 1 dose for Migraine 9 Tab 2 06/17/2015 06/17/2015 documented in this encounter Progress Notes * Jean Munoz MD - 06/17/2015 4567 EDT Subjective: Patient ID: Liset Viera is an 54 y.o. female. Chief Complaint Patient presents with ??? Chronic Pain HPI Here for F/U chronic pain Slightly early for med refills, last Rx for 2 weeks not 1 month Has not been on methadone, states will discuss with On Lyrica Patient Active Problem List Diagnosis ??? Severe [...] DAILY as directed 3 Inhaler 3 ??? hydroxypropyl methylcellulose (ISOPTO TEARS) 0.5 [...] Daily Max: 2 Tabs 60Tab 0 ??? mometasone (NASONEX) 50 mcg/actuation nasal [...] BY MOUTH DAILY 180 Tab 1 ??? tamsulosin (FLOMAX) 0.4 mg capsule Take 1 Cap by mouth daily. 90 Cap 3 ??? tiotropium (SPIRIVA WITH HANDIHALER) 18 mcg inhalation capsule INHALE ONE CAP VIA HANDIHALER EVERY DAY DIRECTED 90 Cap 1 No current facility-administered medications on file prior to visit. Allergies Allergen Reactions ??? Toradol [Ketorolac Tromethamine] Hives ??? Motrin [Ibuprofen] Itching Social History Substance Use Topics ??? Smoking status: Former Smoker -- 2.00 packs/day for 35 years Types: Cigarettes Quit date: 10/14/2010 ??? Smokeless tobacco: Never Used ??? Alcohol Use: No Comment: rarely ROS - See HPI Objective: BP 132/76 mmHg Pulse 76 Temp(Src) 36.7 ??C (98 ??F) (Oral) Resp 17 Wt 92.08 kg (203 lb) LMP 01/11/1987 Physical Exam deferred Assessment: Plan: Liset was seen today for chronic pain. Diagnoses and associated orders for this visit: Chronic pain syndrome Cervicalgia Chronic knee pain, unspecified laterality Chronic back pain - HYDROcodone-acetaminophen (NORCO) 5-325 mg tablet; Take 1-2 Tabs by mouth every 6 hours as neededfor up to 28 days for Pain Earliest Fill Date: 08/12/15 Daily Max: 8 Tabs - HYDROcodone-acetaminophen (NORCO) 5-325 mg tablet; Take 1-2 Tabs by mouth every 6 hours as neededfor up to 28 days for Pain Earliest Fill Date: 07/15/15 Daily Max: 8 Tabs - HYDROcodone-acetaminophen (NORCO) 5-325 mg tablet; Take 1-2 Tabs by mouth every 6 hours as neededfor up to 28 days for Pain Earliest Fill Date: 06/17/15 Daily Max: 8 Tabs We discussed changing to methadone, she would like to discuss with , will review at next visit Other type of migraine - sumatriptan (IMITREX) 50 mg tablet; Take 1 Tab by mouth once as needed for up to 1 dose for Migraine Other insomnia - zolpidem (AMBIEN) 5 mg tablet; Take 1 Tab by mouth at bedtime as needed for Sleep Daily Max: 1 Tab Patient Education Topic: as above Method: Verbal Taught to: Patient Barriers: None Outcomes: Verbalized understanding Return in 3 months (on 09/09/2015) for SERA. documented in this encounter Plan of Treatment Upcoming Encounters Date Type Department Care Team (Late st Contact Info) Description 06/29/2024 14:15 EDT Office Visit [facility] [address] [place] [address] Jean Munoz MD [address] [place] [phone] documented as of this encounter Visit Diagnoses Diagnosis Chronic pain syndrome- Primary Other type of migraine Other insomnia Cervicalgia Chronic knee pain, unspecified laterality Chronic [...] 1 dose as needed for migraine Reorder 06/03/2015 06/17/2015 zolpidem (AMBIEN) 5 mg tabletIndications:Other insomnia Take one tablet by mouth at bedtime as needed for sleep.Daily max: 1 tablet Reorder 06/03/2015 06/17/2015 HYDROcodone-acetaminophe n (NORCO) 5-325 mg tabletIndications:Chroni c pain syndrome,Cervicalgia,Chr onic knee pain, unspecified laterality,Chronic back pain Take 1-2 Tabs by mouth every 6 hours as needed for up to 28 days for Pain Earliest Fill Date: 05/08/15 Daily Max: 8 Tabs Reorder 05/08/2015 06/17/2015 HYDROcodone-acetaminophe n (NORCO) 5-325 mg tabletIndications:Chroni c pain syndrome,Cervicalgia,Chr onic knee pain, unspecified laterality,Chronic back pain Take 1-2 Tabs by mouth every 6 hours as needed for up to 28 days for Pain Daily Max: 8 Tabs Reorder 04/10/2015 06/17/2015 HYDROcodone-acetaminophe n (NORCO) 5-325 mg tabletIndications:Chroni c pain syndrome,Cervicalgia,Chr onic knee pain, unspecified laterality,Chronic back pain Take 1-2 Tabs by mouth every 6 hours as needed for up to 11 days for Pain Earliest Fill Date: 06/05/15 Daily Max: 8 Tabs Reorder 06/05/2015 06/17/2015 documented as of this encounter Care Teams Senior Director Relationship Specialty Start Date End Date Jean Munoz MD [address] [place] [phone] PCP - General 12/31/08 Manny Rizzo MD [address] [place] [phone] 04/20/10 documented as of this encounter
--- OUTSIDE RECORDS SUMMARY | 2024-06-10 07:25 | XMS_ITS | Encounter Summary ---
Author Organization [facility] Address [address] [place] [address] Care Team Providers Care Geodetic Engineer Name Role Phone Jean Munoz MD Primary Care Provider Manny Rizzo MD Unavailable Encounter Details Date Type Department Care Team (Latest Contact Info) Description 10/11/2014 12:24 EST - 10/11/2014 23:59 EST Hospital Encounter [facility] [address] [place] [address] Ho Holt, DO [address] [facility] [address] [place], [place] [address] Discharge Disposition: Auto Discharge Social History Tobacco [...] as of this encounter Discharge Diagnoses Diagnosis 724.4 LUMBOSACRAL NEURITIS NOS[ICD-9-CM] documented in this encounter Medications at Time of Discharge Medication Sig Dispensed Refills Start Date End Date docusate sodium (COLACE) 100 mg capsule Take 1 Capsule by mouth 2 times daily as needed for Constipation. 09/24/2010 baclofen (LIORESAL) 10 mg tabletIndications:Low back pain Take 1 Tab by mouth 3 times daily as needed (mucles tightness). 180 Tab 0 12/13/2013 04/10/2015 cycloSPORINE (RESTASIS) 0.05 % ophthalmic emulsion Place 1 Drop into both eyes 2 times daily. 2 Tray 11 10/24/2013 04/13/2016 DALIRESP 500 mcg tablet TAKE ONE TABLET BY MOUTH ONE TIME DAILY 30 Tab 11 03/30/2014 04/10/2015 doxycycline (VIBRA-TABS) 100 mg tabletIndications:Rosac ea Take 1 Tab by mouth daily. 90 Tab 3 12/13/2013 01/15/2015 fexofenadine (JUDITH) 180 mg tabletIndications:Seaso nal allergic rhinitis Take 1 Tab by mouth daily. 90 Tab 3 12/13/2013 04/10/2015 fluticasone-salmeterol (ADVAIR HFA) 230-21 mcg/actuation inhalerIndications:Asth ma,COPD (chronic obstructive pulmonary disease) ([facility]) Inhale 2 Puffs as directed 2 times daily. 3 Inhaler 3 12/13/2013 02/12/2015 HYDROcodone-acetaminoph en (NORCO) 5-325 mg tablet Take 1-2 Tabs by mouth every 6 hours as needed for up to 28 days for Pain. Earliest Fill Date: 11/14/14 112 Tab 0 11/14/2014 12/11/2014 HYDROcodone-acetaminoph en (NORCO) 5-325 mg tablet Take 1-2 Tabs by mouth every 6 hours as needed for up to 28 days for Pain. Earliest Fill Date: 10/17/14 112 Tab 0 10/17/2014 12/11/2014 HYDROcodone-acetaminoph en (NORCO) 5-325 mg tablet Take 1-2 Tabs by mouth every 6 hours as needed for up to 28 days for Pain. Earliest Fill Date: 09/19/14 112 Tab 0 09/19/2014 12/11/2014 hydroxypropyl methylcellulose (ISOPTO TEARS) 0.5 % ophthalmic solution Place 1 Drop into both eyes 5 times daily. 12/10/2010 10/06/2023 ipratropium-albuterol (DUONEB) 0.5 mg-3 mg(2.5 mg base)/3 mL nebulizer solutionIndications:Ast hma,COPD (chronic obstructive pulmonary disease) ([facility]) Take 3 mL by nebulization every 4 hours as needed for Wheezing. 3 mL 3 02/16/2014 04/10/2015 levalbuterol (XOPENEX HFA) 45 mcg/actuation inhaler Take 2 puffs by mouth as needed for shortness of breath. 3 Inhaler 3 12/13/2013 10/16/2014 methylphenidate (RITALIN;METHYLIN) 10 mg tablet Take one tab in the afternoon for narcolepsy. Earliest Fill Date: 09/25/14 30 Tab 0 09/25/2014 10/22/2014 methylphenidate (RITALIN;METHYLIN) 20 mg tablet Take 2 Tabs by mouth daily. Earliest Fill Date: 09/25/14 60 Tab 0 09/25/2014 10/22/2014 mometasone (NASONEX) 50 mcg/actuation nasal sprayIndications:Season al allergic rhinitis 2 Sprays by nasal route daily. 3 Inhaler 3 12/13/2013 04/10/2015 montelukast (SINGULAIR) 10 mg tabletIndications:Asthm a Take 1 Tab by mouth daily. 90 Tab 3 12/13/2013 02/12/2015 nortriptyline (PAMELOR) 75 mg capsuleIndications:Depr ession Take 1 Cap by mouth daily. 90 Each 3 12/13/2013 04/10/2015 omeprazole (PRILOSEC) 40 mg capsuleIndications:Benja roesophageal reflux disease Take 1 Cap by mouth daily. 90 Cap 3 03/30/2014 04/10/2015 ondansetron (ZOFRAN) 4 mg tabletIndications:Gastr oesophageal reflux disease Take 1 Tab by mouth daily as needed for Nausea. 30 Tab 1 12/13/2013 04/10/2015 pregabalin (LYRICA) 150 mg capsuleIndications:Optometric Assistant majo back pain Take 1 Cap by mouth 3 times daily. 270 Each 1 10/08/2014 04/10/2015 rOPINIRole (REQUIP) 2 mg tabletIndications:Restl ess legs syndrome Take 1 Tab by mouth at bedtime. 90 Tab 3 12/13/2013 01/15/2015 sertraline (ZOLOFT) 100 mg tabletIndications:Depre ssion Take 2 Tabs by mouth daily. 180 Tab 3 12/13/2013 02/04/2015 sumatriptan (IMITREX) 50 mg tabletIndications:Migra ine TAKE ONE TABLET BY MOUTH FOR 1 DOSE NEEDED FOR MIGRAINE 9 Tab 3 09/11/2014 02/19/2015 tamsulosin (FLOMAX) 0.4 mg capsule Take 1 Cap by mouth daily. 90 Cap 3 05/25/2014 10/04/2015 tamsulosin (FLOMAX) 0.4 mg capsule Take one capsule by mouth every day (take it half an hour after supper) 90 Cap 1 08/14/2013 04/28/2015 tiotropium (SPIRIVA WITH HANDIHALER) 18 mcg inhalation capsuleIndications:COPD (chronic obstructive pulmonary disease) ([facility]) Inhale 1 Cap as directed daily. 90 Cap 3 12/13/2013 02/12/2015 zolpidem (AMBIEN) 5 mg tabletIndications:Insom yesi Take 1 Tab by mouth at bedtime as needed for Sleep. 30 Tab 5 06/11/2014 12/11/2014 documented as of this encounter Discharge Disposition Disposition Code Departure Means Destination Auto Discharge Home documented in this encounter Plan of Treatment Upcoming Encounters Date Type Department Care Team (Late st Contact Info) Description 06/29/2024 14:15 EDT Office Visit [facility] [address] [place] [address] Jean Munoz MD [address] [place] [address] documented as of this encounter Visit Diagnoses Not on filedocumented in this encounter Care Teams Geodetic Engineer Relationship Specialty Start Date End Date Jean Munoz MD [address] [place] [address] PCP - General 12/31/08 Manny Rizzo MD [address] [place] [phone] 04/20/10 documented as of this encounter
--- OUTSIDE RECORDS SUMMARY | 2024-06-10 07:25 | XMS_ITS | Encounter Summary ---
Author Organization [facility] Address [address] [place] [address] Care Team Providers Care Anatomy And Physiology Instructor Name Role Phone Jean Munoz MD Primary Care Provider Manny Rizzo MD Unavailable Reason for Visit * Reason Onset Date Comments Medications Refill 06/11/2014 Encounter Details Date Type Department Care Team (Late st Contact Info) Description 06/11/2014 Refill [facility] [address] [place], [place] [id number] Jean Munoz MD [address] [place] [address] Medications Refill Social History Tobacco [...] Da te zolpidem (AMBIEN) 5 mg tabletIndications:Insomni a Take 1 Tab by mouth at bedtime as needed for Sleep. 30 Tab 5 06/11/2014 12/11/2014 documented in this encounter Miscellaneous Notes * Telephone Encounter - Jean Munoz MD - 06/11/2014 1813 EDT Script done, please call in to pharmacy and notify patient, thanks * Telephone Encounter - Yadira Mccauley RN - 06/11/2014 1737 EDT Medication(s) Requested: ambien 5mg [facility]acy: [facility] Last Refill Date: 12/13/13 Last Visit Date: 03/30/14 Next Visit Date: 06/25/2014 Is patient out of medication? unknown Yadira Mccauley RN 06/11/2014 17:37 * Telephone Encounter - Vanessa Wade - 06/11/2014 1722 EDT Incoming fax for Zolpidem refill documented in this encounter Plan of Treatment Upcoming Encounters Date Type Department Care Team (Late st Contact Info) Description 06/29/2024 14:15 EDT Office Visit [facility] Medicine [facility] [address] [place], [place] [phone] Jean Munoz MD [address] [place] [address] documented as of this encounter Visit Diagnoses Diagnosis Insomnia- Primary Insomnia, unspecified Screening for osteoporosis- Primary Special [...] Da te zolpidem (AMBIEN) 5 mg tabletIndications:Insomn ia Take 1 Tab by mouth at bedtime as needed for Sleep. Reorder 12/13/2013 06/11/2014 documented as of this encounter Care Teams Anatomy And Physiology Instructor Relationship Specialty Start Date End Date Jean Munoz MD [address] [place] [address] PCP - General 12/31/08 Manny Rizzo MD [address] [place] [address] 04/20/10 documented as of this encounter
--- OUTSIDE RECORDS SUMMARY | 2024-06-10 07:25 | XMS_ITS | Encounter Summary ---
Author Organization [facility] Address [address] [place] [address] Care Team Providers Care Poultry Processing Supervisor Name Role Phone Jean Munoz MD Primary Care Provider Manny Rizzo MD Unavailable Encounter Details Date Type Department Care Team (Late st Contact Info) Description 06/12/2014 Abstract [facility] [address] [place] [address] Jean Munoz MD [address] [place] [address] Social History Tobacco Use Types [...] Office Visit [facility] [address] [place] [address] Jean Munoz MD [address] [place] [phone] documented as of this encounter Visit Diagnoses Not on filedocumented in this encounter Care Teams Poultry Processing Supervisor Relationship Specialty Start Date End Date Jean Munoz MD [address] [place] [phone] PCP - General 12/31/08 Manny Rizzo MD [address] [place] [address] 04/20/10 documented as of this encounter
--- OUTSIDE RECORDS SUMMARY | 2024-06-10 07:25 | XMS_ITS | Encounter Summary ---
Author Organization [facility] Address [address] [place] [address] Care Team Providers Care Skate Hop Name Role Phone Jean Munoz MD Primary Care Provider Manny Rizzo MD Unavailable Reason for Referral * Consult (Routine/Next Available) - Specialty Report Received Specialty Diagnoses / Procedures Referred By Alex weldon Referred To Contact Pelvic Medicine Diagnoses Hesitancy Straining to void Alban Powers MD [address] [place] [address] Judith Lloyd MD [address] [facility] Building, [address] [place] [address] Referral ID Status Reason Start Date Expiration Date Visits Requested Visits Authorized [id number] Specialty Report Received Specialty Services Required 05/25/2014 1 1 Question Answer Reason for Request: obstructive voiding sx (responding to tamsulosin) in patient with history of hysterectomy for uterine prolapse; please evaluate pelvic floor support Reason for Visit * Reason Comments Follow-up Encounter Details Date Type Department Care Team (Late st Contact Info) Description 05/25/2014 10:40 EDT Office Visit [facility] Urology - [address] [address] Alban Powers MD [address] [facility] [place] [phone] Hesitancy (Primary Dx); Straining to void Social History Tobacco Use Types Packs/Day Years [...] End Da te tamsulosin (FLOMAX) 0.4 mg capsule Take 1 Cap by mouth daily. 90 Cap 3 05/25/2014 10/04/2015 documented in this encounter Progress Notes * Alban Powers - 05/25/2014 1220 EDT Subjective: Patient ID: Liset Viera is an 53 y.o. female. Liset Viera is seen in the office today for Follow-up. HPI Comments: 06-14-13 urodynamic study; SUMMARY: --normal desire to void at 72 mL and a strong urge at 106 mL. --at a filling volume of 203, she was not able to start her stream. --at capacity = 288 mL and with straining, she was eventually able to void. --external sphincter activity was sporadic during the filling phase and was seen during the emptying phase with straining on EMG. She was able to relax the external sphincter to void. --the pressure flow data are equivocal. --maximum flow of 10.8 mL per second and average flow 4.5 mL per second. --pressure at peak flow was 34.1 cm of water. --residual urine volume was not elevated. IMPRESSION: If patient has the urge to void at low filling volumes, she may not be able to start her stream easily. When she voided at a higher filling volume, her external sphincter relaxed and the amount of residual urine was small. Activity of the internal sphincter was not measured in this study which did not include fluoroscopic video monitoring. The pressure flow data are equivocal in termsof confirming bladder outlet obstruction. The patient will have a trial of tamsulosin 0.4 mg daily. 02-14-13 cystoscopy: slight trabeculation; no tumor, stone or well-circumscribed area of increased mucosal erythema, including the anterior wall and bladder neck areas with retroflexion of the cystoscope; no abnormality of urethral or bladder neck mucosa; no anatomic urethral obstruction; 01-11-13 bladder scan: she voided 2-3 ounces, and residual urine amount was 111 ml Hx: Hysterectomy in - my uterus had actually fallen into my pelvis Current: +hesitancy (at least 10 minutes); on the tamsulosin 0.4 mg, the hesitancy improved by 50% (it got about 50% better as far as starting); no side effects on tamsulosin; Once her stream gets going, she has to force it out it's like my bladder doesn't ever fully empty Double-voids > half of the time Has stopped wetting the bed Rarely takes her Nortriptyline (75 mg daily) - due to dry mouth Patient Active Problem List Diagnosis ??? Severe [...] Fracture of right ankle 03/30/2010 ??? Pneumonia 03/01/2013 ??? COPD (chronic obstructive pulmonary disease) ??? Pneumonia 02/26/2013 Past Surgical History Procedure Laterality Date ??? Salpingectomy 1982 ectopic ??? Hysterectomy, vaginal menorrhagia ??? Shoulder arthroscopy 10/15 left, with acromioplasty ??? Gastric fundoplication 03/02/07 [place] ??? Cervical spine surgery 12/31/08 discectomy, fusion C4-7 Dr Dewitt ??? Colonoscopy 07/29/09 repeat 10 years ??? Ankle fracture surgery 04/01/10 left ankle [facility] ??? Cyst incision and drainage 09/17/10 left cheek ??? Fine needle aspiration 09/19/10 left cheek ??? Cystoscopy 02/14/13 Family History Problem Relation Age of Onset [...] Depression Brother ??? Depression Brother Social History Substance Use Topics ??? Smoking status: Former Smoker -- 2.00 packs/day for 35 years Types: Cigarettes Quit date: 10/14/2010 ??? Smokeless tobacco: Never Used ??? Alcohol Use: No Comment: rarely Current Outpatient Prescriptions on File Prior to [...] by mouth daily. 90 Tab 3 ??? fexofenadine (JUDITH) 180 mg tablet Take 1 Tab by mouth daily. 90 Tab 3 ??? fluticasone-salmeterol (ADVAIR HFA) 230-21 mcg/actuation inhaler Inhale 2 Puffs as directed 2 times daily. 3 Inhaler 3 ??? [START ON 05/30/2014] HYDROcodone-acetaminophen (NORCO) 5-325 mg tablet Take 1-2 Tabs by mouth every 6 hours as needed for 28 days for Pain. 112 Tab 0 ??? HYDROcodone-acetaminophen (NORCO) 5-325 mg tablet Take 1-2 Tabs by mouth every 6 hours as needed for 28 days for Pain. 112 Tab 0 ??? HYDROcodone-acetaminophen (NORCO) 5-325 mg tablet Take 1-2 Tabs by mouth every 6 hours as needed for 28 days for Pain. 112 Tab 0 ??? hydroxypropyl methylcellulose (ISOPTO TEARS) 0.5 % ophthalmic solution Place 1 Drop into both eyes 5 times daily. ??? ipratropium-albuterol (DUONEB) 0.5 mg-3 mg(2.5 mg base)/3 mL nebulizer solution Take 3 mL by nebulization every 4 hours as needed for Wheezing. 3 mL 3 ??? levalbuterol (XOPENEX HFA) 45 mcg/actuation inhaler Take 2 puffs by mouth as needed for shortness of breath. 3 Inhaler 3 ??? methylphenidate (RITALIN;METHYLIN) 10 mg tablet Take one tab in the afternoon for narcolepsy. Earliest Fill Date: 05/08/14 30 Tab 0 ??? methylphenidate (RITALIN;METHYLIN) 20 mg tablet Take 2 Tabs by mouth daily. Earliest Fill Date:05/08/14 60 Tab 0 ??? mometasone (NASONEX) 50 [...] needed for Nausea. 30 Tab 1 ??? predniSONE (DELTASONE) 10 mg tablet 40 mg (4 pills) x3d, 30 mg (3 pills) x3d, 20 mg (2 pills) x3d, 10 mg (1 pill) x3d, 5 mg (1/2 pill) x2d.. 31 Tab 0 ??? pregabalin (LYRICA) 150 mg capsule Take 1 Cap by mouth 3 times daily. 270 Each 1 ??? rOPINIRole (REQUIP) 2 mg tablet Take 1 Tab by mouth at bedtime. 90 Tab 3 ??? sertraline (ZOLOFT) 100 [...] as directed daily. 90 Cap 3 ??? zolpidem (AMBIEN) 5 mg tablet Take 1 Tab by mouth at bedtime as needed for Sleep. 30 Tab 5 No current facility-administered medications on file prior to visit. Allergies Allergen Reactions ??? Toradol (Ketorolac Tromethamine) Hives ??? Motrin (Ibuprofen) Itching Review of Systems Gastrointestinal: Positive for diarrhea and constipation. I have irritable bowel Genitourinary: Negative for dysuria. Urge incontinence - a few drops; occurs maybe once a month I'll do that at night sometimes - her underwear will be wet when she wakes up No gross hematuria Nocturia X 2-3 Voids 3-4 times during the day most of the time - See HPI Objective: LMP 01/11/1987 Physical Exam Constitutional: No distress. Pulmonary/Chest: Effort normal. Neurological: She is alert. Psychiatric: She has a normal mood and affect. No visits with results within 1 Day(s) from this visit. Latest known visit with results is: Admission on 02/12/2014, Discharged on 02/16/2014 No results displayed because visit has over 200 results. PSA: No results found for this basename: PSA BMP: Lab Results Component Value Date NA 138 02/16/2014 K 3.5 02/16/2014 CL 96 02/16/2014 CO2 29 02/16/2014 BUN 26 02/16/2014 CREATININE 0.60 02/16/2014 CALCIUM 8.3* 10/26/2012 CALCCA 8.9 10/26/2012 MG 2.1 02/12/2014 PHOS 3.0 10/26/2012 LABALBU 3.9 07/21/2011 Assessment / Plan: 1. Hesitancy 2. Straining to void patient has a bladder contraction on her urodynamic study, although flow rates are low - the data fell into the equivocal range between unobstructed and obstructed; her external sphincter relaxed with voiding; Her hesitancy improved on tamsulosin 0.4 mg; patient may have difficulty relaxing the bladder neck;restart tamsulosin 0.4 mg - observe sx; ULTRASOUND SONOGRAPHER visit re: prolapse evaluation Course of pelvic floor muscle physical therapy to alleviate sx is a consideration Other Orders Placed This Visit Procedures ??? UA with Microscopic Alabn Powers MD documented in this encounter Plan of Treatment Upcoming Encounters Date Type Department Care Team (Late st Contact Info) Description 06/29/2024 14:15 EDT Office Visit [facility] [address] [place] [address] Jean Munoz MD [address] [place] [address] Scheduled Referrals Name Type Priority Associated Diagnoses Order Schedule AMB CONS/FOLLOW UP [facility] Outpatient Referral Routine Hesitancy Straining to void Ordered: 05/25/2014 documented as of this encounter Procedures Procedure Name Priority Date/Time Associated Diagnosis Comments URINE CHEMICAL (DIP) & SEDIMENT (MICRO) WITHOUT REFLEX TO CULTURE Routine 05/25/2014 12:33 EDT Hesitancy Straining to void documented in this encounter Results * (ABNORMAL) UA WITH MICROSCOPIC (05/25/2014 12:33 EDT) Color, UA Yellow [facility] Clarity, UA Clear [facility] Glucose, UA Neg Neg [facility] Bilirubin, UA Neg Neg [facility] Ketones, UA Neg Neg [facility] Specific Stephens, Urine >1.030 1.001 - 1.035 [facility] Blood, UA Neg Neg [facility] pH, UA 6.0 4.6 - 8.0 [facility] Protein, UA Neg Neg [facility] Urobilinogen, UA 0.2 0.2 - 1.0 E.U./dl [facility] Nitrite, UA Neg Neg [facility] Leuk Esterase Neg Neg [facility] WBC, UA less than 1 0 - 5 /HPF [facility] RBC, UA less than 1 0 - 5 /HPF [facility] Squam Epithel, UA Few(A) None seen /HPF [facility] Renal Epithel, UA None seen None seen /HPF [facility] Bacteria, UA None seen None seen /HPF [facility] Crystals, UA None seen /HPF [facility] Hyaline Casts, UA None seen /LPF [facility] UA Comment Microscopic results [facility] Comment: are unreliable on urines unrefrig >2hrs or refrig >8hrs. Refractometer SG,Urine 1.018 1.001 - 1.035 [facility] Urine specimen (specimen) URINE / Unknown 05/25/2014 12:33 EDT 05/25/2014 13:34 EDT Alban Powers MD URINALYSIS ORDERABLE S Performing Organization Address City/State/[facility] Co de Phone Number [facility] [address] [place] [address] documented in this encounter Visit Diagnoses Diagnosis Hesitancy- Primary Urinary hesitancy Straining to void Straining on urination Screening for osteoporosis- Primary Special screening for osteoporosis Primary narcolepsy without cataplexy Chronic pain syndrome Chronic low back pain Lumbago Chronic use of opiate for therapeutic purpose Pain medication agreement Encounter for long-term (current) use of other medications Screen for colon cancer Special screening for malignant neoplasms, colon documented in this encounter Care Teams Skate Hop Relationship Specialty Start Date End Date Jean Munoz MD [address] [place] [address] PCP - General 12/31/08 Manny Rizzo MD [address] [place] [address] 04/20/10 documented as of this encounter
--- OUTSIDE RECORDS SUMMARY | 2024-06-10 07:25 | XMS_ITS | Encounter Summary ---
Author Organization [facility] Address [address] [place] [address] Care Team Providers Care Behaviour Support Teacher Name Role Phone Jean Munoz MD Primary Care Provider Manny Rizzo MD Unavailable Reason for Visit * Reason Onset Date Comments Medications Refill 09/24/2014 Encounter Details Date Type Department Care Team (Late st Contact Info) Description 09/24/2014 Telephone [facility] Sleep Program - [address] [phone] Tiana Bacon [address] [place] [address] [...] Date: 09/25/14 60 Tab 0 09/25/2014 10/22/2014 methylphenidate (RITALIN;METHYLIN) 10 mg tablet Take one tab in the afternoon for narcolepsy. Earliest Fill Date: 09/25/14 30 Tab 0 09/25/2014 10/22/2014 documented in this encounter Miscellaneous Notes * Telephone Encounter - Corrina Ac RN - 09/24/2014 1542 EST Spoke with patient and let her know her (ritalin) prescriptions ready [facility]. * Telephone Encounter - Duy Booth - 09/24/2014 1139 EST Calling to request refills of Ritalin. She would like to pick them up tomorrow. documented in this encounter Plan of Treatment Upcoming Encounters Date Type Department Care Team (Late st Contact Info) Description 06/29/2024 14:15 EDT Office Visit [facility] Medicine [facility] [address] [place] [address] Jean Munoz MD [address] [place] [phone] documented as of this encounter Visit Diagnoses Not on filedocumented in this encounter Discontinued Medications Medication Sig Discontinue Reason Start Date End Da te methylphenidate (RITALIN;METHYLIN) 10 mg tablet Take one tab in the afternoon for narcolepsy. Earliest Fill Date: 08/28/14 Reorder 08/28/2014 09/24/2014 methylphenidate (RITALIN;METHYLIN) 20 mg tablet Take 2 Tabs by mouth daily. Reorder 08/27/2014 09/24/2014 documented as of this encounter Care Teams Behaviour Support Teacher Relationship Specialty Start Date End Date Jean Munoz MD [address] [place] [phone] PCP - General 12/31/08 Manny Rizzo MD [address] [place] [phone] 04/20/10 documented as of this encounter
--- OUTSIDE RECORDS SUMMARY | 2024-06-10 07:25 | XMS_ITS | Encounter Summary ---
Author Organization [facility] Address [address] [place] [address] Care Team Providers Care Personal Health Coach Name Role Phone Jean Munoz MD Primary Care Provider Manny Rizzo MD Unavailable Reason for Visit * Reason Onset Date Comments Prior Auth, Medication 10/26/2014 LYRICA 15 0MG Encounter Details Date Type Department Care Team (Late st Contact Info) Description 10/26/[address] [facility] [address] [place] [address] Jean Munoz MD [address] [place] [phone] Prior Auth, Medication (LYRICA 150MG) Social History Tobacco Use Types Packs/Day Years [...] * Telephone Encounter - Rukhsana Molina - 10/26/2014 1322 EST Medication: LYRICA 150MG Insurance Co: [place] Approval # (if applicable): [id number] Approval dates: 10/24/14-10/24/15 Name of Pharmacy notified: [facility] documented in this encounter Plan of Treatment Upcoming Encounters Date Type Department Care Team (Late st Contact Info) Description 06/29/2024 14:15 EDT Office Visit [facility] [address] [place] [address] Jean Munoz MD [address] [place] [address] documented as of this encounter Visit Diagnoses Not on filedocumented in this encounter Care Teams Personal Health Coach Relationship Specialty Start Date End Date Jean Munoz MD [address] [place] [phone] PCP - General 12/31/08 Manny Rizzo MD [address] [place] [phone] 04/20/10 documented as of this encounter
--- OUTSIDE RECORDS SUMMARY | 2024-06-10 07:25 | XMS_ITS | Encounter Summary ---
Author Organization [facility] Address [address] [place] [address] Care Team Providers Care Labor Relations Worker Name Role Phone Jean Munoz MD Primary Care Provider Manny Rizzo MD Unavailable Reason for Visit * Reason Comments Chronic Pain Five week follow-up. Desires refills on Lyrica and Hydrocodone. Encounter Details Date Type Department Care Team (Late st Contact Info) Description 03/30/2014 13:45 EDT Office Visit [facility] [address] [place] [address] Jean Munoz MD [address] [place] [phone] Chronic back pain (Primary Dx); Cervicalgia; Chronic knee pain; Chronic pain syndrome; Asthma; Chronic obstructive pulmonary disease (CMS-HCC) (HCC-CMS); Insomnia; Gastroesophageal reflux disease Social History Tobacco Use Types Packs/Day Years [...] Sign Reading Time Taken Comments Blood Pressure 110/70 03/30/2014 1354 EDT Pulse 76 03/30/2014 1354 EDT Temperature 36.6 ??C (97.8 ??F) 03/30/2014 1354 EDT Respiratory Rate 16 03/30/2014 1354 EDT Oxygen Saturation - - Inhaled Oxygen Concentration - - Weight - - Height 162.5 cm (5' 3.98) 03/30/2014 1354 EDT Body Mass Index - - documented [...] End Da te HYDROcodone-acetaminophen (NORCO) 5-325 mg tablet Take 1-2 Tabs by mouth every 6 hours as needed for 28 days for Pain. 112 Tab 0 04/04/2014 06/25/2014 HYDROcodone-acetaminophen (NORCO) 5-325 mg tablet Take 1-2 Tabs by mouth every 6 hours as needed for 28 days for Pain. 112 Tab 0 05/02/2014 06/25/2014 HYDROcodone-acetaminophen (NORCO) 5-325 mg tablet Take 1-2 Tabs by mouth every 6 hours as needed for 28 days for Pain. 112 Tab 0 05/30/2014 06/25/2014 pregabalin (LYRICA) 150 mg capsuleIndications:Chroni c back pain Take 1 Cap by mouth 3 times daily. 270 Each 1 03/30/2014 10/08/2014 omeprazole (PRILOSEC) 40 mg capsuleIndications:Gastro esophageal reflux disease Take 1 Cap by mouth daily. 90 Cap 3 03/30/2014 04/10/2015 documented in this encounter Progress Notes * Jean Munoz MD - 03/30/2014 1420 EDT Subjective: Patient ID: Liset Viera is an 53 y.o. female. Chief Complaint Patient presents with ??? Chronic Pain Five week follow-up. Desires refills on Lyrica and Hydrocodone. HPI Chronic back pain Cervicalgia F/U pain clinic pending for injection for back injection Chronic knee pain F/U Ortho appointment changed so noguera not seen them yet Chronic obstructive pulmonary disease Asthma Has been doing well Had Pumonary F/U preivously Insomnia Doing well Ambien prn, not every night Depression Has improved since condition as improved Hesitancy Medication is helping, takes after dinner at night Needs refills of hydrocodone Inquires about paperwork for disability Patient Active Problem List Diagnosis ??? Severe [...] (chronic obstructive pulmonary disease) ??? Pneumonia 02/26/2013 Current Outpatient Prescriptions on [...] 2 times daily. 3 Inhaler 3 ??? hydroxypropyl methylcellulose (ISOPTO [...] the afternoon for narcolepsy. Earliest Fill Date: 03/15/14 30 Tab 0 ??? methylphenidate (RITALIN;METHYLIN) 20 mg tablet Take 2 Tabs by mouth daily. Earliest Fill Date:03/15/14 60 Tab 0 ??? mometasone (NASONEX) 50 mcg/actuation nasal spray 2 Sprays by nasal route daily. 3 Inhaler 3 ??? montelukast (SINGULAIR) 10 mg tablet Take 1 Tab by mouth daily. 90 Tab 3 ??? nortriptyline (PAMELOR) 75 mg capsule Take 1 Cap by mouth daily. 90 Each 3 ??? ondansetron (ZOFRAN) 4 mg tablet Take 1 Tab by mouth daily as needed for Nausea. 30 Tab 1 ??? predniSONE (DELTASONE) 10 mg tablet 40 mg (4 pills) x3d, 30 mg (3 pills) x3d, 20 mg (2 pills) x3d, 10 mg (1 pill) x3d, 5 mg (1/2 pill) x2d.. 31 Tab 0 ??? rOPINIRole (REQUIP) 2 mg tablet Take [...] (Ketorolac Tromethamine) Hives ??? Motrin (Ibuprofen) Itching Social History Substance Use Topics ??? Smoking status: Former Smoker -- 2.00 packs/day for 35 years Types: Cigarettes Quit date: 10/14/2010 ??? Smokeless tobacco: Never Used ??? Alcohol Use: No Comment: rarely ROS - See HPI Objective: BP 110/70 Pulse 76 Temp(Src) 36.6 ??C (97.8 ??F) (Tympanic) Resp 16 Ht 162.5 cm (63.98) LMP 01/11/1987 Physical Exam deferred Assessment: Plan: Liset was seen today for chronic pain. Diagnoses and associated orders for this visit: Chronic back pain - pregabalin (LYRICA) 150 mg capsule; Take 1 Cap by mouth 3 times daily. F/U pain clinic Cervicalgia As above Chronic knee pain Ortho F/U pending Chronic pain syndrome - HYDROcodone-acetaminophen (NORCO) 5-325 mg tablet; Take 1-2 Tabs by mouth every 6 hours as neededfor 28 days for Pain. - HYDROcodone-acetaminophen (NORCO) 5-325 mg tablet; Take 1-2 Tabs by mouth every 6 hours as neededfor 28 days for Pain. - HYDROcodone-acetaminophen (NORCO) 5-325 mg tablet; Take 1-2 Tabs by mouth every 6 hours as neededfor 28 days for Pain. Opiate surveillance: A [employer]([place] Prescription Monitoring System) report on this patient was printed and reviewed today to ensure the prescribing and dispensing of his medications is in accordance with the treatment plan Asthma Chronic obstructive pulmonary disease Improved F/U per pulmonary Insomnia Ambien prn Gastroesophageal reflux disease - omeprazole (PRILOSEC) 40 mg capsule; Take 1 Cap by mouth daily. We discussed disability paperwork Our office to contact property staff accountant Patient Education Topic: as above Method: Verbal Taught to: Patient Barriers: None Outcomes: Verbalized understanding Return in 3 months (on 06/27/2014) for SERA. documented in this encounter Plan of Treatment Upcoming Encounters Date Type Department Care Team (Late st Contact Info) Description 06/29/2024 14:15 EDT Office Visit [address] [address] Jean Munoz MD [address] [place] [phone] documented as of this encounter Visit Diagnoses Diagnosis Chronic back pain- Primary Backache, unspecified Cervicalgia Chronic knee pain Pain in joint, lower leg Chronic pain syndrome Asthma Unspecified asthma Chronic obstructive pulmonary disease (HCC-CMS) Chronic airway obstruction, not elsewhere classified Insomnia Insomnia, unspecified Gastroesophageal reflux disease Esophageal reflux Screening for osteoporosis- Primary Special screening for [...] End Da te omeprazole (PRILOSEC) 40 mg capsuleIndications:Gastr oesophageal reflux disease Take 1 Cap by mouth daily. Reorder 12/13/2013 03/30/2014 pregabalin (LYRICA) 150 mg capsuleIndications:Chron ic back pain Take 1 Cap by mouth 3 times daily. Reorder 12/13/2013 03/30/2014 HYDROcodone-acetaminophe n (NORCO) 5-325 mg tablet Take 1-2 Tabs by mouth every 6 hours as needed for 28 days for Pain. Reorder 03/07/2014 03/30/2014 HYDROcodone-acetaminophe n (NORCO) 5-325 mg tablet Take 1-2 Tabs by mouth every 6 hours as needed for 28 days for Pain. Reorder 02/07/2014 03/30/2014 documented as of this encounter Care Teams Labor Relations Worker Relationship Specialty Start Date End Date Jean Munoz MD [address] [place] [phone] PCP - General 12/31/08 Manny Rizzo MD [address] [place] [phone] 04/20/10 documented as of this encounter
--- OUTSIDE RECORDS SUMMARY | 2024-06-10 07:25 | XMS_ITS | Encounter Summary ---
Author Organization [facility] Address [address] [place] [address] Care Team Providers Care Special Technical Operations Officer Name Role Phone Jean Munoz MD Primary Care Provider Manny Rizzo MD Unavailable Reason for Visit * Reason Onset Date Comments Medications Refill 03/12/2014 Encounter Details Date Type Department Care Team (Late st Contact Info) Description 03/12/2014 Refill [facility] Sleep Program - [address] [id number] Tiana Bacon [address] [place] [phone] Medications Refill Social History Tobacco Use [...] Tabs by mouth daily. Earliest Fill Date: 03/15/14 60 Tab 0 03/15/2014 04/09/2014 methylphenidate (RITALIN;METHYLIN) 10 mg tablet Take one tab in the afternoon for narcolepsy. Earliest Fill Date: 03/15/14 30 Tab 0 03/15/2014 04/09/2014 documented in this encounter Miscellaneous Notes * Telephone Encounter - Corrina Ac RN - 03/13/2014 0812 EDT Last filled ritalin prescriptions at [facility] pharmacy on 02/15/14. Called pt and let her know her ritalin prescriptions ready for pick up man. * Telephone Encounter - Corrina Ac RN - 03/12/2014 1308 EDT * Telephone Encounter - Duy Booth - 03/12/2014 1258 EDT Calling to request refills of Ritalin to be picked up. Please call when ready. documented in this encounter Plan of Treatment Upcoming Encounters Date Type Department Care Team (Late st Contact Info) Description 06/29/2024 14:15 EDT Office Visit [facility] [address] [place] [address] Jean Munoz MD [address] [place] [phone] documented as of this encounter Visit Diagnoses Not on filedocumented in this encounter Discontinued Medications Medication Sig Discontinue Reason Start Date End Da te methylphenidate (RITALIN;METHYLIN) 10 mg tablet Take one tab in the afternoon for narcolepsy. Earliest Fill Date: 02/13/14 Reorder 02/13/2014 03/12/2014 methylphenidate (RITALIN;METHYLIN) 20 mg tablet Take 2 Tabs by mouth daily. Earliest Fill Date: 02/13/14 Reorder 02/13/2014 03/12/2014 documented as of this encounter Care Teams Special Technical Operations Officer Relationship Specialty Start Date End Date Jean Munoz MD [address] [place] [phone] PCP - General 12/31/08 Manny Rizzo MD [address] [place] [phone] 04/20/10 documented as of this encounter
--- OUTSIDE RECORDS SUMMARY | 2024-06-10 07:25 | XMS_ITS | Encounter Summary ---
Author Organization [facility] Address [address] [place] [address] Care Team Providers Care Wind Up Worker Name Role Phone Jean Munoz MD Primary Care Provider Manny Rizzo MD Unavailable Reason for Visit * Reason Comments Back Pain low back pain Encounter Details Date Type Department Care Team (Latest Contact Info) Description 08/20/2014 14:15 EST Office Visit [facility] [address] [place], [place] [phone] Ho Holt, DO [address] [facility] [address] [place], [place] [phone] Lumbar radicular syndrome (Primary Dx); Degeneration of lumbar or lumbosacral intervertebral disc Discharge Disposition: Auto Discharge Social History Tobacco [...] Sign Reading Time Taken Comments Blood Pressure 120/88 08/20/2014 1530 EST Pulse 71 08/20/2014 1530 EST Temperature 36.2 ??C (97.2 ??F) 08/20/2014 1422 EST Respiratory Rate 18 08/20/2014 1530 EST Oxygen Saturation - - Inhaled Oxygen Concentration - - Weight 83.9 kg (185 lb) 08/20/2014 1422 EST Height 162.6 cm (5' 4) 08/20/2014 1422 EST Body Mass Index 31.76 08/20/2014 1422 EST documented in this encounter Functional Status [...] as of this encounter Discharge Diagnoses Diagnosis 721.3 LUMBOSACRAL SPONDYLOSIS[ICD-9-CM] 722.52 LUMB/LUMBOSAC DISC DEGEN[ICD-9-CM] 724.4 LUMBOSACRAL NEURITIS NOS[ICD-9-CM] documented in this encounter Patient Instructions * Patient Instructions* Mukesh Freeman RN - 08/20/2014 15:21 EST [facility] [address] [address] Patient Instructions You have had your lumbar Epidural Steroid Injection. The purpose of this procedure has been to place medication which may help relieve your pain. Steroid may be used to decrease the swelling and nerve irritation which may be causing your pain. The following information should help you over the next few days regarding what you may expect. Please take it easy for the rest of today. DO NOT drive a car for the remainder of the day. If you feel sore where the needle(s) entered for the block or develop a flare-up of pain over the next few days, please use ice on the area. You may leave the ice on for up to 20 minutes at a time. Do not use heat, as this may cause swelling. As long as your primary doctor has indicated no restrictions, you may take a mild pain medicine, such as acetaminophen (Tylenol), ibuprofen (Advil, Nuprin, Motrin IB, etc.) or aspirin, if needed. The steroid injection usually takes a few days to become effective. On average, you may notice somerelief in 3 -5 days. However, it may take up to 10 - 14 days to know whether the injection was helpful. If the block causes numbness/weakness, it should wear off within a few hours. If the area that the needle(s) were inserted becomes hot, red, swollen, or increasingly tender, or if you develop a fever (100.5 or greater) or chills along with these symptoms, please call our office immediately. If you develop increasingly severe neck/back pain, continued numbness or weakness of the arms/legs or changes in your bladder or bowel functions, please call our office immediately. Patient Education Topic: post procedure instructions Method: Handout and Verbal Taught to: Patient Barriers: None Outcomes: independent and verbalized understanding Signature:MUKESH FREEMAN RN If you have any questions about your block, please call documented in this encounter Discharge Disposition Disposition Code Departure Means Destination Auto Discharge documented in this encounter Progress Notes * Ho Holt - 08/20/2014 1507 EST PT NAME: Liset Viera : 1960 DOS: 08/20/2014 HEEL CUTTER: Ho Holt DO EVENT PRODUCER: N/A PROCEDURE: lumbar epidural steroid injection L4-5 DIAGNOSIS: 1. Lumbar radicular syndrome 2. Degeneration of lumbar or lumbosacral intervertebral disc INTERVAL HISTORY Liset Viera presents for [facility]. She has chronic lbp with radiation down both legs. The L4-5 DMITRI we performed in 2012 was helpful for 2-3 months and reduced the pain 50-75%. Her last MRI was 2005. Otherwise, the current pain symptoms are consistent with her baseline and there have been no recent changes in the pain character, quality, or distribution, and no changes in strength, sensation, or bladder control. EXAMINATION Blood pressure 113/68, pulse 70, temperature 36.2 ??C (97.2 ??F), temperature source Tympanic, resp. rate 16, height 162.6 cm (64), weight 83.915 kg (185 lb), last menstrual period 01/11/1987. General: awake, alert, cooperative, no apparent distress Skin: no rashes, bruises or petechiae noted Gait: normal gait, steady stance Joints: no redness, warmth, or swelling of the joints IMPRESSION/PLAN LESI L4-5 as planned. FU 6 wks for LESI vs TFESI order MRI LS. PROCEDURE The patient gave informed written consent to proceed with this procedure following a detailed discussion of the risks and benefits associated with epidural steroid injection in the lumbar spine. The patient was then placed in the prone position, the skin over the thoracic area was prepped with chlor hexadine, and the site was draped with sterile towels. Strict sterile technique was maintained throughout the procedure. Fluoroscopy was used to visualize the L4-L5 disc space. The skin and subcutaneous tissue over this level was anesthetized by infiltration of 2% lidocaine. An 18 guage touhy needle was inserted under fluoroscopic guidance by coaxial technique and advanced towards the interspace.Loss of resistance with normal saline was used to find the epidural space. One pass was required and there was no paresthesia. Contrast dye was injected under live fluoroscopy demonstrating a typicalepidural pattern with no evidence of intravascular or intrathecal injection. After negative aspiration, 80 mg Depo-Medrol and 2 ml Normal Saline were injected. The needle was then flushed and withdrawn. The patient tolerated the procedure well, there were no apparent complications, and discharged in stable condition. Written and verbal discharge instructions were reviewed with the patient prior to discharge. Ho Holt DO 08/20/2014 * Lata Vu - 08/20/2014 6709 EST [facility] Rooming Note Does patient have a Medical Collector? yes Is patient NPO? (Solids since midnight & liquids for 4 hrs) na Blood Thinners: Is patient on Blood Thinners? no If yes, taking? If stopped, who authorized stopping? Related comments: Infections: Any recent infections, fever of illnesses? no If on antibiotics, is it 7-10 days past the date of completion of antibiotics? no : (for females of child-bearing age) Is there a chance current ? no Other: documented in this encounter Plan of Treatment Upcoming Encounters Date Type Department Care Team (Late st Contact Info) Description 06/29/2024 14:15 EDT Office Visit [facility] [address] [place] [address] Jean Munoz MD [address] [place] [phone] documented as of this encounter Procedures Procedure Name Priority Date/Time Associated Diagnosis Comments MR LUMBAR SPINE WO CONTRAST 10/11/2014 13:06 EST documented in this encounter Results * MR LUMBAR SPINE WO CONTRAST (10/11/2014 13:06 EST) Anatomical Region Laterality Modality Other 10/11/2014 13:0 6 EST 10/11/2014 13:59 EST Narrative 10/11/2014 13:59 EST MR LUMBAR SPINE WO CONTRAST ??10/11/2014 1:06 PM Signs and Symptoms/Comments: 724.4-Thoracic or lumbosacral neuritis or radiculitis, [id number]; lumbar radiculopathy Comparison December 23, 2005. Sagittal T1, T2, STIR, axial T1, T2 and coronal T2 images. Coronal images reveal no scoliosis or lateral subluxation. High signal focus in or adjacent to the spleen is of indeterminate nature. If indicated could be further evaluated with ultrasound. No renal mass. No gross abnormality of the hips. Sagittal images show no anterior posterior malalignment or compression fractures. No worrisome bony signal is demonstrated on the STIR or T1 scans. Conus tip is normal at the L1-L2 level. There is no intrinsic spinal cord signal abnormality or cord compression. Significant foraminal stenosis is not demonstrated with a low T1 high T2 signal focus in the right L2 foramen consistent with a root sheath cyst. This is also seen previously. There may be minimal loss of disc signal at L4-L5 consistent with mild interval degenerative change, not remarkable given the nine-year interval. Axial scans L2-S1: At L2-L3, minimal disc bulge. No central or foraminal stenosis or disc herniation demonstrated. Nerve root sheath cyst on the right, not significantly changed. Mild degenerative facet changes. At L3-L4 no disc herniation, central or foraminal stenosis. Mild to moderate degenerative facet changes. L4-L5 moderate degenerative facet changes. Mild disc bulge. There is very mild L5 lateral recess narrowing, not grossly changed. No new focal disc herniation. At L5-S1 there is convex posterior contour of the upper aspect of S1. This is unchanged and normal.. There is no significant neural compression. There are degenerative facet changes, as much as moderate. There are a few small high signal lesions along the posterior aspect of the joints which could be degenerative. These do not produce neurocompression. These degenerative facet changes may be slightly greater than prior. Impression: 1. No new disc herniation, central or foraminal stenosis with degenerative type changes demonstrated. These are not severe but may be minimally progressed since prior study. This however is not remarkable given the nine-year interval. 2. 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 3. Lesion in the left upper quadrant may be in or just adjacent to the spleen. It could be further evaluated with ultrasound if indicated. Procedure Note 10/11/2014 MR LUMBAR SPINE WO CONTRAST 10/11/2014 1:06 PM Signs and Symptoms/Comments: 724.4-Thoracic or lumbosacral neuritis or radiculitis, [id number]; lumbar radiculopathy Comparison December 23, 2005. Sagittal T1, T2, STIR, axial T1, T2 and coronal T2 images. Coronal images reveal no scoliosis or lateral subluxation. High signal focus in or adjacent to the spleen is of indeterminate nature. If indicated could be further evaluated with ultrasound. No renal mass. No gross abnormality of the hips. Sagittal images show no anterior posterior malalignment or compression fractures. No worrisome bony signal is demonstrated on the STIR or T1 scans. Conus tip is normal at the L1-L2 level. There is no intrinsic spinal cord signal abnormality or cord compression. Significant foraminal stenosis is not demonstrated with a low T1 high T2 signal focus in the right L2 foramen consistent with a root sheath cyst. This is also seen previously. There may be minimal loss of disc signal at L4-L5 consistent with mild interval degenerative change, not remarkable given the nine-year interval. Axial scans L2-S1: At L2-L3, minimal disc bulge. No central or foraminal stenosis or disc herniation demonstrated. Nerve root sheath cyst on the right, not significantly changed. Mild degenerative facet changes. At L3-L4 no disc herniation, central or foraminal stenosis. Mild to moderate degenerative facet changes. L4-L5 moderate degenerative facet changes. Mild disc bulge. There is very mild L5 lateral recess narrowing, not grossly changed. No new focal disc herniation. At L5-S1 there is convex posterior contour of the upper aspect of S1. This is unchanged and normal.. There is no significant neural compression. There are degenerative facet changes, as much as moderate. There are a few small high signal lesions along the posterior aspect of the joints which could be degenerative. These do not produce neurocompression. These degenerative facet changes may be slightly greater than prior. Impression: 1. No new disc herniation, central or foraminal stenosis with degenerative type changes demonstrated. These are not severe but may be minimally progressed since prior study. This however is not remarkable given the nine-year interval. 2. 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 3. Lesion in the left upper quadrant may be in or just adjacent to the spleen. It could be further evaluated with ultrasound if indicated. Ho [facility] MRI ORDERABLES documented in this encounter Visit Diagnoses Diagnosis Lumbar radicular syndrome- Primary Thoracic or lumbosacral neuritis or radiculitis, unspecified Degeneration of lumbar or lumbosacral intervertebral disc Screening for osteoporosis- Primary Special screening for [...] MAR Action Action Date Dose Rate Site methylPREDNISolone ACETATE (DEPO-MEDROL) injection 80 mg 80 mg, neural-axial, NOW X1, 1 dose, On 08/20/14 at 1600, Routine Given by Other 08/20/2014 15:35 EST 80 mg documented in this encounter Orders Medications Ordered That Victor Manuel ht Not Have Been Administered Count Last Ordered Date First Ordered Date methylPREDNISolone ACETATE ( DEPO-MEDROL) injection 80 mg 1 08/20/2014 documented in this encounter Care Teams Wind Up Worker Relationship Specialty Start Date End Date Jean Munoz MD [address] [place] [phone] PCP - General 12/31/08 Manny Rizzo MD [address] [place] [phone] 04/20/10 documented as of this encounter
--- OUTSIDE RECORDS SUMMARY | 2024-06-10 07:25 | XMS_ITS | Encounter Summary ---
Author Organization [facility] Address [address] [place] [address] Care Team Providers Care Water Sander Name Role Phone Jean Munoz MD Primary Care Provider Manny Rizzo MD Unavailable Reason for Visit * Reason Comments Knee Pain left knee pain * Consult (Routine) - Specialty Report Received Specialty Diagnoses / Procedures Referred By Alex weldon Referred To Contact Orthopedic Surgery Diagnoses Left knee pain Jean Munoz MD [address] [place] [address] [facility] [address] [place] [address] [place] [address] Referral ID Status Reason Start Date Expiration Date Visits Requested Visits Authorized [id number] Specialty Report Received Specialty Services Required 01/16/2014 1 1 Encounter Details Date Type Department Care Team (Late st Contact Info) Description 04/04/2014 11:45 EDT Office Visit [facility] Sports Medicine Program - [place] [address] [place] [address] Bear Glynn MD [address] [place] [phone] Left knee pain (Primary Dx) Discharge Disposition: Auto Discharge Social [...] - Inhaled Oxygen Concentration - - Weight 87.1 kg (192 lb) 04/04/2014 1054 EDT Height 162.5 cm (5' 3.98) 04/04/2014 1054 EDT Body Mass Index 32.98 04/04/2014 1054 EDT documented in this encounter Functional Status [...] as of this encounter Discharge Diagnoses Diagnosis 719.46 JOINT PAIN-L/LEG[ICD-9-CM] documented in this encounter Discharge Disposition Disposition Code Departure Means Destination Auto Discharge documented in this encounter Progress Notes * Bear Glynn MD - 04/04/2014 1338 EDT PROBLEM: Left knee pain. SUBJECTIVE: Ms Viera is here today for followup of her left knee pain. She notes that her knee still swells. She has had episodes of feelings of giving way. She describes the discomfort as an aching, throbbing, and she points to the medial, posterior and lateral aspects of her knee as the sourceof her discomfort. She has pain when she walks and pain, especially if she is on her feet for any length of time. She also experiences an achiness after sitting after she has been on her feet. She does her exercises as instructed at physical therapy. She also ices. She cannot take ibuprofen. She occasionally has groin pain. She notes that the last injection lasted for 1 to 2 months. Also significant in her medical history is the fact that she was hospitalized in the MICU for her chronic obstructive pulmonary disease earlier this summer. OBJECTIVE: Examination of the left lower extremity shows no angular deformity, no palpable effusion. There is tenderness over the pes anserinus, the medial joint line and the anterolateral fat pad. There is increased medial joint line tenderness with Cleve maneuver. Her ligaments are stable. I reviewed her MRI from 2012. This showed some truncation of the medial meniscus, suggestive of a tear. Risks, benefits and alternatives were discussed with the patient and verbal consent was obtained. The final verification/time out immediately prior to incision/procedure has been conducted by me and members of the procedural team as appropriate to their involvement in the procedure. The patient's identity, procedure, and when applicable the side/site, patient position, availability of implants and any special equipment or special requirements was verbally confirmed prior to the procedure. appropriate to their involvement in the left knee was injected with 5 mL of 0.5% Marcaine and 5 mL of Kenalog 10 mg per mL. ASSESSMENT: Ms Viera continues to have left knee pain. The meniscal pathology seen on her MR is not especially obvious. Given her recent pulmonary issues, I do not think she is a candidate for surgery as I think that anesthesia a significant risk due to her COPD. Hopefully, the injection will give her relief. PLAN: I will see her back in approximately 8 weeks if she continues to have problems. * Jadyn Cobos - 04/04/2014 1224 EDT I. Patient is here for intraarticular injection-Bupivicaine 5cc of 0.5 % mg/mL 1. Med given in left knee by intraarticular route. 2. Med lot number: [id number] 3. Exp date: 05.14.2015 Cut Pressman: [employer] I. Patient is here for intraarticular injection- Kenelog 50mg/mL 1. Med given in left knee by intraarticular route. 2. Med lot number: [id number] 3. Exp date: 07/2015 Cut Pressman: [employer] Jadyn Cobos documented in this encounter Plan of Treatment Upcoming Encounters Date Type Department Care Team (Late st Contact Info) Description 06/29/2024 14:15 EDT Office Visit [facility][note 3] [address] [place], [place] [phone] Jean Munoz MD [address] [place] [phone] documented as of this encounter Visit Diagnoses Diagnosis Left knee pain- Primary Pain in joint, lower leg Screening for osteoporosis- Primary Special screening for osteoporosis Primary narcolepsy without cataplexy Chronic pain syndrome Chronic low back pain Lumbago Chronic use of opiate for therapeutic purpose Pain medication agreement Encounter for long-term (current) use of other medications Screen for colon cancer Special screening for malignant neoplasms, colon documented in this encounter Care Teams Water Sander Relationship Specialty Start Date End Date Jean Munoz MD [address] [place] [phone] PCP - General 12/31/08 Manny Rizzo MD [address] [place] [address] 04/20/10 documented as of this encounter
--- OUTSIDE RECORDS SUMMARY | 2024-06-10 07:25 | XMS_ITS | Encounter Summary ---
Author Organization [facility] Address [address] [place] [address] Care Team Providers Care Forestry Support Specialist Name Role Phone Jean Munoz MD Primary Care Provider Manny Rizzo MD Unavailable Reason for Visit * Reason Onset Date Comments Medications Refill 07/30/2014 Encounter Details Date Type Department Care Team (Late st Contact Info) Description 07/30/2014 Telephone [facility] Sleep Program - [address] [phone] Tiana Bacon [address] [place] [phone] Medications Refill Social History Tobacco Use [...] Tabs by mouth daily. Earliest Fill Date: 07/31/14 60 Tab 0 07/31/2014 08/27/2014 methylphenidate (RITALIN;METHYLIN) 10 mg tablet Take one tab in the afternoon for narcolepsy. Earliest Fill Date: 07/31/14 30 Tab 0 07/31/2014 08/27/2014 documented in this encounter Miscellaneous Notes * Telephone Encounter - Corrina Ac RN - 07/30/2014 1307 EST Spoke with patient and let her know her (ritalin) prescriptions ready for draft roller picker at the Sleep Center. * Telephone Encounter - Duy Booth - 07/30/2014 1158 EST Calling to request refills of Ritalin to be picked up on Wednesday. documented in this encounter Plan of Treatment Upcoming Encounters Date Type Department Care Team (Late st Contact Info) Description 06/29/2024 14:15 EDT Office Visit [facility] Family Medicine [facility] [address] [place] [address] Jean Munoz MD [address] [place] [phone] documented as of this encounter Visit Diagnoses Not on filedocumented in this encounter Discontinued Medications Medication Sig Discontinue Reason Start Date End Da te methylphenidate (RITALIN;METHYLIN) 10 mg tablet Take one tab in the afternoon for narcolepsy. Earliest Fill Date: 07/03/14 Reorder 07/03/2014 07/30/2014 methylphenidate (RITALIN;METHYLIN) 20 mg tablet Take 2 Tabs by mouth daily. Earliest Fill Date: 07/03/14 Reorder 07/03/2014 07/30/2014 documented as of this encounter Care Teams Forestry Support Specialist Relationship Specialty Start Date End Date Jean Munoz MD [address] [place] [phone] PCP - General 12/31/08 Manny Rizzo MD [address] [place] [address] 04/20/10 documented as of this encounter
--- OUTSIDE RECORDS SUMMARY | 2024-06-10 07:25 | XMS_ITS | Encounter Summary ---
Author Organization [facility] Address [address] [place] [address] Care Team Providers Care Screener And Blender Operator Name Role Phone Jean Munoz MD Primary Care Provider Manny Rizzo MD Unavailable Reason for Visit * Reason Onset Date Comments Medications Refill 07/02/2014 Encounter Details Date Type Department Care Team (Late st Contact Info) Description 07/02/2014 Telephone [facility] Sleep Program - [address] [phone] Tiana Bacon [address] [place] [address] Medications Refill Social History [...] afternoon for narcolepsy. Earliest Fill Date: 07/03/14 30 Tab 0 07/03/2014 07/30/2014 methylphenidate (RITALIN;METHYLIN) 20 mg tablet Take 2 Tabs by mouth daily. Earliest Fill Date: 07/03/14 60 Tab 0 07/03/2014 07/30/2014 documented in this encounter Miscellaneous Notes * Telephone Encounter - Corrina Ac RN - 07/02/2014 1605 EDT Spoke with patient and let her know her ritalin prescriptions ready for nut picker at the Sleep Center. * Telephone Encounter - Barbara Gimenez - 07/02/2014 1206 EDT PT needs refill on Ritalin 20mg 2/morning; Ritalin 10mg 1/afternoon. PT will nut picker at medical front desk specialist on Wednesday. documented in this encounter Plan of Treatment Upcoming Encounters Date Type Department Care Team (Late st Contact Info) Description 06/29/2024 14:15 EDT Office Visit [facility] Medicine [facility] [address] [place] [address] Jean Munoz MD [address] [place] [phone] documented as of this encounter Visit Diagnoses Not on filedocumented in this encounter Discontinued Medications Medication Sig Discontinue Reason Start Date End Da te methylphenidate (RITALIN;METHYLIN) 20 mg tablet Take 2 Tabs by mouth daily. Earliest Fill Date: 06/05/14 Reorder 06/05/2014 07/02/2014 methylphenidate (RITALIN;METHYLIN) 10 mg tablet Take one tab in the afternoon for narcolepsy. Earliest Fill Date: 06/05/14 Reorder 06/05/2014 07/02/2014 documented as of this encounter Care Teams Screener And Blender Operator Relationship Specialty Start Date End Date Jean Munoz MD [address] [place] [phone] PCP - General 12/31/08 Manny Rizzo MD [address] [place] [address] 04/20/10 documented as of this encounter
--- OUTSIDE RECORDS SUMMARY | 2024-06-10 07:25 | XMS_ITS | Encounter Summary ---
Author Organization [facility] Address [address] [place] [address] Care Team Providers Care Supply Chain Engineer Name Role Phone Jean Munoz MD Primary Care Provider Manny Rizzo MD Unavailable Reason for Visit * Reason Onset Date Comments Pharmacy 10/16/2014 Encounter Details Date Type Department Care Team (Late st Contact Info) Description 10/16/2014 Telephone [facility] [address] [place] [address] Jean Munoz MD [address] [place] [phone] Pharmacy Social History Tobacco Use Types [...] encounter Miscellaneous Notes * Telephone Encounter - Vanessa Wade - 10/18/2014 0949 EST Relayed info to pharmacy * Telephone Encounter - Jean Munoz MD - 10/16/2014 1706 EST 2 puffs every 6 hours as needed * Telephone Encounter - Rukhsana Molina - 10/16/2014 1654 EST Pharmacy needs to know the frequency of the patients xopenex. Please call [facility] documented in this encounter Plan of Treatment Upcoming Encounters Date Type Department Care Team (Late st Contact Info) Description 06/29/2024 14:15 EDT Office Visit [facility] [address] [place] [address] Jean Munoz MD [address] [place] [phone] documented as of this encounter Visit Diagnoses Not on filedocumented in this encounter Care Teams Supply Chain Engineer Relationship Specialty Start Date End Date Jean Munoz MD [address] [place] [phone] PCP - General 12/31/08 Manny Rizzo MD [address] [place] [phone] 04/20/10 documented as of this encounter
--- OUTSIDE RECORDS SUMMARY | 2024-06-10 07:25 | XMS_ITS | Encounter Summary ---
Author Organization [facility] Address [address] [place] [address] Care Team Providers Care Color Stripper Name Role Phone Jean Munoz MD Primary Care Provider Manny Rizzo MD Unavailable Reason for Visit * Reason Onset Date Comments Appointment Related 07/05/2014 Encounter Details Date Type Department Care Team (Late st Contact Info) Description 07/05/2014 Telephone [facility] Rehabilitation Therapy - Medical Office Building [address] [place] [phone] Therapy, Physical Appointment Related Social History Tobacco Use Types [...] encounter Miscellaneous Notes * Telephone Encounter - Karen Mejia - 07/05/2014 1104 EDT MEDICAL OFFICE BUILDING ([facility]) [address] [facility] [address] A confirmation call was made to patient regarding 07/09/2014 physical therapy appointment. A message was left with date/time/location of appointment and phone number to the [facility]. documented in this encounter Plan of Treatment Upcoming Encounters Date Type Department Care Team (Late st Contact Info) Description 06/29/2024 14:15 EDT Office Visit [facility] Medicine [facility] [address] [place], [place] [phone] Jean Munoz MD [address] [place] [phone] documented as of this encounter Visit Diagnoses Not on filedocumented in this encounter Care Teams Color Stripper Relationship Specialty Start Date End Date Jean Munoz MD [address] [place] [phone] PCP - General 12/31/08 Manny Rizzo MD [address] [place] [address] 04/20/10 documented as of this encounter
--- OUTSIDE RECORDS SUMMARY | 2024-06-10 07:25 | XMS_ITS | Encounter Summary ---
Author Organization [facility] Address [address] [place] [address] Care Team Providers Care Continuous Mining Operator Name Role Phone Jean Munoz MD Primary Care Provider Manny Rizzo MD Unavailable Reason for Visit * Reason Comments Follow-up 3 month f/u pain Encounter Details Date Type Department Care Team (Late st Contact Info) Description 06/25/2014 14:45 EDT Office Visit [facility] [address] [place] [address] Jean Munoz MD [address] [place] [phone] Chronic knee pain (Primary Dx); Chronic pain syndrome; Need for influenza vaccination Social History Tobacco Use Types Packs/Day Years [...] Reading Time Taken Comments Blood Pressure 112/70 06/25/2014 1432 EDT Pulse 84 06/25/2014 1432 EDT Temperature 36.2 ??C (97.2 ??F) 06/25/2014 1432 EDT Respiratory Rate 20 06/25/2014 1432 EDT Oxygen Saturation - - Inhaled Oxygen Concentration - - Weight 85 kg (187 lb 8 oz) 06/25/2014 1432 EDT Height 162.6 cm (5' 4) 06/25/2014 1432 EDT Body Mass Index 32.18 06/25/2014 1432 EDT documented in this encounter Functional Status [...] 28 days for Pain. Earliest Fill Date: 06/27/14 112 Tab 0 06/27/2014 09/19/2014 HYDROcodone-acetaminophen (NORCO) 5-325 mg tablet Take 1-2 Tabs by mouth every 6 hours as needed for up to 28 days for Pain. Earliest Fill Date: 07/25/14 112 Tab 0 07/25/2014 09/19/2014 HYDROcodone-acetaminophen (NORCO) 5-325 mg tablet Take 1-2 Tabs by mouth every 6 hours as needed for up to 28 days for Pain. Earliest Fill Date: 08/22/14 112 Tab 0 08/22/2014 09/19/2014 documented in this encounter Progress Notes * Irlanda Post LPN - 06/25/2014 1512 EDT Flu vaccine administered as ordered per Dr. Munoz. See immunization record for details. Patient advised to wait 10 minutes after administration for observation of possible adverse reaction. * Jean Munoz MD - 06/25/2014 1440 EDT Subjective: Patient ID: Liset Viera is an 53 y.o. female. Chief Complaint Patient presents with ??? Follow-up 3 month f/u pain HPI Here with family service caseworker and friend Tremor Intermittent Onset 2 years ago Getting worse Saw Dr Bacon Gait normal Chronic back pain Cervicalgia F/U pain clinic appointment changed, has not seen yet Chronic knee pain F/U Ortho Had injection, helps for about 1 month Plans to call for F/U Chronic obstructive pulmonary disease Asthma Has been well controlled per patient Insomnia off and on Ambien 3-4 x/week Depression Doing well Has been out and about in last 2 days Hesitancy Has seen Dr Powers Patient Active Problem List Diagnosis ??? Severe [...] afternoon for narcolepsy. Earliest Fill Date: 06/05/14 30 Tab 0 ??? methylphenidate (RITALIN;METHYLIN) 20 mg tablet Take 2 Tabs by mouth daily. Earliest Fill Date:06/05/14 60 Tab 0 ??? mometasone (NASONEX) 50 [...] rarely ROS - See HPI Objective: BP 112/70 Pulse 84 Temp(Src) 36.2 ??C (97.2 ??F) (Tympanic) Resp 20 Ht 162.6 cm (64) Wt 85.049 kg (187 lb 8 oz) BMI 32.17 kg/m2 LMP 01/11/1987 Physical Exam Mild intermittent tremor No cogwheeling or rigidity Assessment: Plan: Liset was seen today for follow-up. Diagnoses and associated orders for this visit: Chronic knee pain Chronic pain syndrome - HYDROcodone-acetaminophen (NORCO) 5-325 mg tablet; Take 1-2 Tabs by mouth every 6 hours as neededfor up to 28 days for Pain. Earliest Fill Date: 08/22/14 - HYDROcodone-acetaminophen (NORCO) 5-325 mg tablet; Take 1-2 Tabs by mouth every 6 hours as neededfor up to 28 days for Pain. Earliest Fill Date: 07/25/14 - HYDROcodone-acetaminophen (NORCO) 5-325 mg tablet; Take 1-2 Tabs by mouth every 6 hours as neededfor up to 28 days for Pain. Earliest Fill Date: 06/27/14 Opiate surveillance: A [employer]([place] Prescription Monitoring System) report on this patient was printed and reviewed today to ensure the prescribing and dispensing of his medications is in accordance with the treatment plan. Methylphenidate prescribed by Dr Bacon. Need for influenza vaccination - Influenza Vaccine =>1yo Quad Preservative Free IM Tremor not suggestive of Parkinson's ?essential tremor vs anxiety vs meds Patient states was addressed by Dr Bacon Patient Education Topic: as above Method: Verbal Taught to: Patient Barriers: None Outcomes: Verbalized understanding documented in this encounter Plan of Treatment Upcoming Encounters Date Type Department Care Team (Late st Contact Info) Description 06/29/2024 14:15 EDT Office Visit [facility] [address] [place], [place] [phone] Jean Munoz MD [address] [place] [phone] documented as of this encounter Visit Diagnoses Diagnosis Chronic knee pain- Primary Pain in joint, lower leg Chronic pain syndrome Need for influenza vaccination Need for prophylactic vaccination and inoculation against influenza Screening for osteoporosis- Primary Special screening for [...] Da te predniSONE (DELTASONE) 10 mg tablet 40 mg (4 pills) x3d, 30 mg (3 pills) x3d, 20 mg (2 pills) x3d, 10 mg (1 pill) x3d, 5 mg (1/2 pill) x2d.. Therapy completed 02/16/2014 06/25/2014 HYDROcodone-acetaminophe n (NORCO) 5-325 mg tablet Take 1-2 Tabs by mouth every 6 hours as needed for 28 days for Pain. Reorder 05/30/2014 06/25/2014 HYDROcodone-acetaminophe n (NORCO) 5-325 mg tablet Take 1-2 Tabs by mouth every 6 hours as needed for 28 days for Pain. Reorder 05/02/2014 06/25/2014 HYDROcodone-acetaminophe n (NORCO) 5-325 mg tablet Take 1-2 Tabs by mouth every 6 hours as needed for 28 days for Pain. Reorder 04/04/2014 06/25/2014 documented as of this encounter Orders Immunization/Injection Count Last Ordered Date First Ordered Date INFLUENZA VACCINE =>1YO QUAD PRESERVATIVE FREE IM 1 06/25/2014 documented in this encounter Care Teams Continuous Mining Operator Relationship Specialty Start Date End Date Jean Munoz MD [address] [place] [phone] PCP - General 12/31/08 [place] [address] [place] [phone] 04/20/10 documented as of this encounter
--- OUTSIDE RECORDS SUMMARY | 2024-06-10 07:25 | XMS_ITS | Encounter Summary ---
Author Organization [facility] Address [address] [place] [address] Care Team Providers Care Singer Back Tender Name Role Phone Jean Munoz MD Primary Care Provider Manny Rizzo MD Unavailable Encounter Details Date Type Department Care Team (Late st Contact Info) Description 10/09/2014 Abstract [facility] [address] [place] [address] Jean Munoz MD [address] [place] [phone] Social History Tobacco Use Types [...] [facility] [address] [place] [address] Jean Munoz MD [address] [place] [phone] documented as of this encounter Visit Diagnoses Not on filedocumented in this encounter Care Teams Singer Back Tender Relationship Specialty Start Date End Date Jean Munoz MD [address] [place] [phone] PCP - General 12/31/08 Manny Rizzo MD [address] [place] [address] 04/20/10 documented as of this encounter
--- OUTSIDE RECORDS SUMMARY | 2024-06-10 07:25 | XMS_ITS | Encounter Summary ---
Author Organization [facility] Address [address] [place] [address] Care Team Providers Care Rehabilitation Therapy Aide Name Role Phone Jean Munoz MD Primary Care Provider Manny Rizzo MD Unavailable Reason for Visit * Reason Comments Medication Management Refill on Dickens Encounter Details Date Type Department Care Team (Latest Contact Info) Description 12/11/2014 15:00 EDT Office Visit [facility] [address] [place], [place] [phone] Jean Munoz MD [address] [place] [address] Gastroenteritis (Primary Dx); Chronic pain syndrome; Cervicalgia; Insomnia Discharge Disposition: Auto Discharge Social History Tobacco [...] Sign Reading Time Taken Comments Blood Pressure 136/80 12/11/2014 1443 EDT Pulse 80 12/11/2014 1443 EDT Temperature 36.9 ??C (98.5 ??F) 12/11/2014 1443 EDT Respiratory Rate 16 12/11/2014 1443 EDT Oxygen Saturation - - Inhaled Oxygen Concentration - - Weight 88 kg (194 lb) 12/11/2014 1443 EDT Height 162.6 cm (5' 4.02) 12/11/2014 1443 EDT Body Mass Index 33.28 12/11/2014 1443 EDT [...] as of this encounter Discharge Diagnoses Diagnosis 558.9 NONINFEC GASTROENTERIT NEC[ICD-9-CM] 338.4 CHRONIC PAIN SYNDROME[ICD-9-CM] 723.1 CERVICALGIA[ICD-9-CM] 780.52 INSOMNIA, UNSPECIFIED[ICD-9-CM] documented in this encounter Ordered Prescriptions Prescription Sig Dispensed Refills Start Date End Da te HYDROcodone-acetaminophen (NORCO) 5-325 mg tabletIndications:Chronic pain syndrome,Cervicalgia Take 1-2 Tabs by mouth every 6 hours as needed for up to 28 days for Pain Earliest Fill Date: 12/11/14 Daily Max: 8 Tabs 112 Tab 0 12/12/2014 03/01/2015 HYDROcodone-acetaminophen (NORCO) 5-325 mg tabletIndications:Chronic pain syndrome,Cervicalgia Take 1-2 Tabs by mouth every 6 hours as needed for up to 28 days for Pain Earliest Fill Date: 01/09/15 Daily Max: 8 Tabs 112 Tab 0 01/09/2015 03/01/2015 HYDROcodone-acetaminophen (NORCO) 5-325 mg tabletIndications:Chronic pain syndrome,Cervicalgia Take 1-2 Tabs by mouth every 6 hours as needed for up to 28 days for Pain Earliest Fill Date: 02/06/15 Daily Max: 8 Tabs 112 Tab 0 02/06/2015 04/10/2015 zolpidem (AMBIEN) 5 mg tabletIndications:Insomni a Take 1 Tab by mouth at bedtime as needed for Sleep Daily Max: 5 mg 30 Tab 5 12/11/2014 06/03/2015 documented in this encounter Discharge Disposition Disposition Code Departure Means Destination Auto Discharge documented in this encounter Progress Notes * Jean Munoz MD - 12/11/2014 1456 EDT Subjective: Patient ID: Liset Viera is an 53 y.o. female. Chief Complaint Patient presents with ??? Medication Management Refill on Dickens HPI Here with friend Shelbie Has had nausea, vomiting and diarrhea, is improving Still with chronic neck and knee pain Now in hotel in [facility] with Valente looking for bigger apartment Patient Active Problem List Diagnosis ??? Severe [...] afternoon for narcolepsy Earliest Fill Date: 11/19/14 30 Tab 0 ??? methylphenidate (RITALIN;METHYLIN) 20 [...] FOR SHORTNESS OF BREATH 45 g 0 No current facility-administered medications on file prior to visit. Allergies Allergen Reactions ??? Toradol [Ketorolac Tromethamine] Hives ??? Motrin [Ibuprofen] Itching Social History Substance Use Topics ??? Smoking status: Former Smoker -- 2.00 packs/day for 35 years Types: Cigarettes Quit date: 10/14/2010 ??? Smokeless tobacco: Never Used ??? Alcohol Use: No Comment: rarely ROS - See HPI Objective: BP 136/80 Pulse 80 Temp(Src) 36.9 ??C (98.5 ??F) (Tympanic) Resp 16 Ht 162.6 cm (64.02) Wt 87.998 kg (194 lb) BMI 33.28 kg/m2 LMP 01/11/1987 Physical Exam defered Assessment: Plan: Liset was seen today for medication management. Diagnoses and associated orders for this visit: Gastroenteritis Resolving Chronic pain syndrome - HYDROcodone-acetaminophen (NORCO) 5-325 mg tablet; Take 1-2 Tabs by mouth every 6 hours as neededfor up to 28 days for Pain Earliest Fill Date: 02/06/15 Daily Max: 8 Tabs - HYDROcodone-acetaminophen (NORCO) 5-325 mg tablet; Take 1-2 Tabs by mouth every 6 hours as neededfor up to 28 days for Pain Earliest Fill Date: 01/09/15 Daily Max: 8 Tabs - HYDROcodone-acetaminophen (NORCO) 5-325 mg tablet; Take 1-2 Tabs by mouth every 6 hours as neededfor up to 28 days for Pain Earliest Fill Date: 12/11/14 Daily Max: 8 Tabs - Drug Screen 6 - Drug Screen, Opiate Confirmation, Urine Cervicalgia - HYDROcodone-acetaminophen (NORCO) 5-325 mg tablet; Take 1-2 Tabs by mouth every 6 hours as neededfor up to 28 days for Pain Earliest Fill Date: 02/06/15 Daily Max: 8 Tabs - HYDROcodone-acetaminophen (NORCO) 5-325 mg tablet; Take 1-2 Tabs by mouth every 6 hours as neededfor up to 28 days for Pain Earliest Fill Date: 01/09/15 Daily Max: 8 Tabs - HYDROcodone-acetaminophen (NORCO) 5-325 mg tablet; Take 1-2 Tabs by mouth every 6 hours as neededfor up to 28 days for Pain Earliest Fill Date: 12/11/14 Daily Max: 8 Tabs Insomnia - zolpidem (AMBIEN) 5 mg tablet; Take 1 Tab by mouth at bedtime as needed for Sleep Daily Max: 5 mg Patient Education Topic: as above Method: Verbal Taught to: Patient Barriers: None Outcomes: Verbalized understanding Return in 3 months (on 03/05/2015) for PE. documented in this encounter Plan of Treatment Upcoming Encounters Date Type Department Care Team (Late st Contact Info) Description 06/29/2024 14:15 EDT Office Visit [facility] [address] [place] [address] Jean Munoz MD [address] [place] [address] documented as of this encounter Procedures Procedure Name Priority Date/Time Associated Diagnosis Comments DRUG SCREEN 6 Routine 12/11/2014 15:02 EDT Chronic pain syndrome OPIATE PANEL CONFIRMATION Routine 12/11/2014 15:02 EDT Chronic pain syndrome documented in this encounter Results * OPIATE CONFIRMATION, URINE (12/11/2014 15:02 EDT) Conf, Opiates Positive 12/14/2014 8:02 EDT [facility] Codeine Negative <100 ng/mL 12/14/2014 8:02 EDT [facility] Hydrocodone Negative <100 ng/mL 12/14/2014 8:02 [facility] Hydromorphone 146 <100 ng/mL 12/14/2014 8:02 [facility] Morphine Negative <100 ng/mL [facility] Oxycodone Negative <100 ng/mL 12/14/2014 8:02 [facility] Oxymorphone Negative <100 ng/mL 12/14/2014 8:02 [facility] Comment: (Note) ADDITIONAL INFORMATION This report is intended for use in clinical monitoring and management of patients. It is not intended for use in employment-related drug testing. Performed by: [facility], [address], [place] [address], [employer] Packaging Machine Operator: Liset Dick, Ph.D. Urine specimen (specimen) URINE / Unknown 12/11/2014 15:02 EDT 12/11/2014 17:00 EDT Jean Munoz MD URINALYSIS [place] [facility] [address] [place] [address] * DRUG SCREEN 6 (12/11/2014 15:02 EDT) Amphetamine Screen, Urine Negative screen. 12/11/2014 21:10 [facility] Comment: Confirmation testing available upon request. Suitable for medical purposes only. Will not detect all drugs within class. Cutoff = 1000 ng/ml Specimen type is urine. Barbiturate Screen, Urine Negative screen. 12/11/2014 21:10 [facility] Comment: Confirmation testing available upon request. Suitable for medical purposes only. Will not detect all drugs within class. Cutoff = 300 ng/ml Specimen type is urine. Benzodiazepine Screen, Urine Negative screen. 12/11/2014 21:10 T [facility] Comment: Confirmation testing available upon request. Suitable for medical purposes only. Will not detect all drugs within class. Assay less sensitive to Lorazepam and metabolites. Cutoff = 200 ng/ml Specimen type is urine. Cannabinoid Scrn, Ur Presumptive positive, interpret with caution. 12/11/2014 21:10 [facility] Comment: Confirmation testing available upon request. Suitable for medical purposes only. Will not detect all drugs within class. Cutoff = 50 ng/ml Specimen type is urine. Opiate Scrn, Ur Presumptive positive, interpret with caution. 12/11/2014 21:10 [facility] Comment: Confirmation testing available upon request. Suitable for medical purposes only. Will not detect all drugs within class. Cutoff = 300 ng/ml Assay less sensitive to oxycodone and metabolites. Assay does not detect methadone. Specimen type is urine. Cocaine Metabolites, Ur Negative screen. 12/11/2014 21:10 [facility] Comment: Confirmation testing available upon request. Suitable for medical purposes only. Will not detect all drugs within class. Cutoff = 300 ng/ml Specimen type is urine. Urine specimen (specimen) URINE / Unknown 12/11/2014 15:02 EDT 12/11/2014 17:00 EDT Jean Munoz MD URINALYSIS [place] Organization Address City/State/ZIP Co de Phone Number [facility] [address] [place] [address] documented in this encounter Visit Diagnoses Diagnosis Gastroenteritis- Primary Other and unspecified noninfectious gastroenteritis and colitis Chronic pain syndrome Cervicalgia Insomnia Insomnia, unspecified Screening for osteoporosis- Primary [...] Da te zolpidem (AMBIEN) 5 mg tabletIndications:Insom yesi Take 1 Tab by mouth at bedtime as needed for Sleep. Reorder 06/11/2014 12/11/2014 HYDROcodone-acetaminoph en (NORCO) 5-325 mg tablet Take 1-2 Tabs by mouth every 6 hours as needed for up to 28 days for Pain. Earliest Fill Date: 11/14/14 Reorder 11/14/2014 12/11/2014 HYDROcodone-acetaminoph en (NORCO) 5-325 mg tablet Take 1-2 Tabs by mouth every 6 hours as needed for up to 28 days for Pain. Earliest Fill Date: 10/17/14 Reorder 10/17/2014 12/11/2014 HYDROcodone-acetaminoph en (NORCO) 5-325 mg tablet Take 1-2 Tabs by mouth every 6 hours as needed for up to 28 days for Pain. Earliest Fill Date: 09/19/14 Reorder 09/19/2014 12/11/2014 documented as of this encounter Care Teams Rehabilitation Therapy Aide Relationship Specialty Start Date End Date Jean Munoz MD [address] [place] [address] PCP - General 12/31/08 Manny Rizzo MD [address] [place] [address] 04/20/10 documented as of this encounter
--- OUTSIDE RECORDS SUMMARY | 2024-06-10 07:25 | XMS_ITS | Encounter Summary ---
Author Organization [facility] Address [address] [place] [address] Care Team Providers Care Institute Director Name Role Phone Jean Munoz MD Primary Care Provider Manny Rizzo MD Unavailable Reason for Visit * Reason Onset Date Comments Medications Refill 11/19/2014 Encounter Details Date Type Department Care Team (Late st Contact Info) Description 11/19/[address] [facility] Sleep Program - [address] [phone] Tiana Bacon [address] [place] [address] Medications Refill Social History Tobacco [...] Daily Max: 2 Tabs 60 Tab 0 11/19/2014 12/17/2014 methylphenidate (RITALIN;METHYLIN) 10 mg tablet Take one tab in the afternoon for narcolepsy Earliest Fill Date: 11/19/14 30 Tab 0 11/19/2014 12/17/2014 documented in this encounter Miscellaneous Notes * Telephone Encounter - Corrina Ac RN - 11/20/2014 0939 EDT Left message for pt to let know (ritalin ) prescriptions ready for sweet pickle maker at the Sleep Center. 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 SHE WILL BE IN TOWN ON Wednesday, 11/20 documented in this encounter Plan of Treatment Upcoming Encounters Date Type Department Care Team (Late st Contact Info) Description 06/29/2024 14:15 EDT Office Visit [facility] Medicine [facility] [address] [place] [address] Jean Munoz MD [address] [place] [address] documented as of this encounter Visit Diagnoses Not on filedocumented in this encounter Discontinued Medications Medication Sig Discontinue Reason Start Date End Da te methylphenidate (RITALIN;METHYLIN) 10 mg tablet Take one tab in the afternoon for narcolepsy Earliest Fill Date: 10/22/14 Reorder 10/22/2014 11/19/2014 methylphenidate (RITALIN;METHYLIN) 20 mg tablet Take 2 Tabs by mouth daily Earliest Fill Date: 10/22/14 Daily Max: 2 Tabs Reorder 10/22/2014 11/19/2014 documented as of this encounter Care Teams Institute Director Relationship Specialty Start Date End Date Jean Munoz MD [address] [place] [address] PCP - General 12/31/08 Manny Rizzo MD [address] [place] [address] 04/20/10 documented as of this encounter
--- OUTSIDE RECORDS SUMMARY | 2024-06-10 07:25 | XMS_ITS | Encounter Summary ---
Author Organization [facility] Address [address] [place] [address] Care Team Providers Care X Ray Equipment Tester Name Role Phone Jean Munoz MD Primary Care Provider Manny Rizzo MD Unavailable Reason for Visit * Reason Comments Chronic Pain refill on med Encounter Details Date Type Department Care Team (Late st Contact Info) Description 09/19/2014 10:45 EST Office Visit [facility] Medicine [facility] [address] [place], [place] [phone] Jean Munoz MD [address] [place] [address] URI (upper respiratory infection) (Primary Dx); Chronic back pain Social History Tobacco Use [...] Sign Reading Time Taken Comments Blood Pressure 140/82 09/19/2014 1139 EST Pulse 76 09/19/2014 1139 EST Temperature 37.1 ??C (98.7 ??F) 09/19/2014 1139 EST Respiratory Rate 16 09/19/2014 1139 EST Oxygen Saturation - - Inhaled Oxygen [...] Date: 09/19/14 112 Tab 0 09/19/2014 12/11/2014 HYDROcodone-acetaminophen (NORCO) 5-325 mg tablet Take 1-2 Tabs by mouth every 6 hours as needed for up to 28 days for Pain. Earliest Fill Date: 10/17/14 112 Tab 0 10/17/2014 12/11/2014 HYDROcodone-acetaminophen (NORCO) 5-325 mg tablet Take 1-2 Tabs by mouth every 6 hours as needed for up to 28 days for Pain. Earliest Fill Date: 11/14/14 112 Tab 0 11/14/2014 12/11/2014 documented in this encounter Progress Notes * Jean Munoz MD - 09/19/2014 1147 EST Subjective: Patient ID: Liset Viera is an 53 y.o. female. Chief Complaint Patient presents with ??? Chronic Pain refill on med HPI May have had a cold recently Breathing may be somewhat worse Needs prior auth for [place], has contacted Pulmonary but has not heard back Chronic pain Same, no change MRI pending tomorrow for back Needs refills of meds Patient Active Problem List Diagnosis ??? Severe [...] ??? Right knee pain 04/19/09 Ortho consult Gary Mabry, MRI ? Mensicus tear, recommend PT ??? [...] afternoon for narcolepsy. Earliest Fill Date: 08/28/14 30 Tab 0 ??? methylphenidate (RITALIN;METHYLIN) 20 mg tablet Take 2 Tabs by mouth daily. 60 Tab 0 ??? mometasone (NASONEX) 50 [...] rarely ROS - See HPI Objective: BP 140/82 Pulse 76 Temp(Src) 37.1 ??C (98.7 ??F) (Tympanic) Resp 16 LMP 01/11/1987 Physical Exam deferred Assessment: Plan: Liset was seen today for chronic pain. Diagnoses and associated orders for this visit: URI (upper respiratory infection) Will contact Pulmonary re Diegoiresp Chronic back pain Other Orders - HYDROcodone-acetaminophen (NORCO) 5-325 mg tablet; Take 1-2 Tabs by mouth every 6 hours as neededfor up to 28 days for Pain. Earliest Fill Date: 11/14/14 - HYDROcodone-acetaminophen (NORCO) 5-325 mg tablet; Take 1-2 Tabs by mouth every 6 hours as neededfor up to 28 days for Pain. Earliest Fill Date: 10/17/14 - HYDROcodone-acetaminophen (NORCO) 5-325 mg tablet; Take 1-2 Tabs by mouth every 6 hours as neededfor up to 28 days for Pain. Earliest Fill Date: 09/19/14 SOAPP and COMM done today Patient Education Topic: as above Method: Verbal Taught to: Patient Barriers: None Outcomes: Verbalized understanding Return in 3 months (on 12/12/2014) for SERA. documented in this encounter Plan of Treatment Upcoming Encounters Date Type Department Care Team (Late st Contact Info) Description 06/29/2024 14:15 EDT Office Visit [facility] [address] [place] [address] Jean Munoz MD [address] [place] [address] documented as of this encounter Visit Diagnoses Diagnosis URI (upper respiratory infection)- Primary Acute upper respiratory infections of unspecified site Chronic back pain Backache, unspecified Screening for [...] Da te HYDROcodone-acetaminoph en (NORCO) 5-325 mg tablet Take 1-2 Tabs by mouth every 6 hours as needed for up to 28 days for Pain. Earliest Fill Date: 08/22/14 Reorder 08/22/2014 09/19/2014 HYDROcodone-acetaminoph en (NORCO) 5-325 mg tablet Take 1-2 Tabs by mouth every 6 hours as needed for up to 28 days for Pain. Earliest Fill Date: 07/25/14 Reorder 07/25/2014 09/19/2014 HYDROcodone-acetaminoph en (NORCO) 5-325 mg tablet Take 1-2 Tabs by mouth every 6 hours as needed for up to 28 days for Pain. Earliest Fill Date: 06/27/14 Reorder 06/27/2014 09/19/2014 documented as of this encounter Care Teams X Ray Equipment Tester Relationship Specialty Start Date End Date Jean Munoz MD [address] [place] [address] PCP - General 12/31/08 Manny Rizzo MD [address] [place] [address] 04/20/10 documented as of this encounter
--- OUTSIDE RECORDS SUMMARY | 2024-06-10 07:25 | XMS_ITS | Encounter Summary ---
Author Organization [facility] Address [address] [place] [address] Care Team Providers Care Crisis Clinician Name Role Phone Jean Munoz MD Primary Care Provider Manny Rizzo MD Unavailable Reason for Visit * Reason Onset Date Comments Medications Refill 04/09/2014 Encounter Details Date Type Department Care Team (Late st Contact Info) Description 04/09/2014 Telephone [facility] Sleep Program - [address] [phone] Tiana Bacon [address] [place] [address] Medications Refill Social History Tobacco [...] the afternoon for narcolepsy. 30 Tab 0 04/09/2014 05/07/2014 methylphenidate (RITALIN;METHYLIN) 20 mg tablet Take 2 Tabs by mouth daily. 60 Tab 0 04/09/2014 05/07/2014 documented in this encounter Miscellaneous Notes * Telephone Encounter - Barbara Gimenez - 04/09/2014 1501 EDT PT needs refill on Ritalin 20mg 2/day; and Ritalin 10mg 1/day. 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 documented in this encounter Plan of Treatment Upcoming Encounters Date Type Department Care Team (Late st Contact Info) Description 06/29/2024 14:15 EDT Office Visit [facility] Medicine [facility] [address] [place] [address] Jean Munoz MD [address] [place] [phone] documented as of this encounter Visit Diagnoses Not on filedocumented in this encounter Discontinued Medications Medication Sig Discontinue Reason Start Date End Da te methylphenidate (RITALIN;METHYLIN) 20 mg tablet Take 2 Tabs by mouth daily. Earliest Fill Date: 03/15/14 Reorder 03/15/2014 04/09/2014 methylphenidate (RITALIN;METHYLIN) 10 mg tablet Take one tab in the afternoon for narcolepsy. Earliest Fill Date: 03/15/14 Reorder 03/15/2014 04/09/2014 documented as of this encounter Care Teams Crisis Clinician Relationship Specialty Start Date End Date Jean Munoz MD [address] [place] [address] PCP - General 12/31/08 Manny Rizzo MD [address] [place] [phone] 04/20/10 documented as of this encounter
--- OUTSIDE RECORDS SUMMARY | 2024-06-10 07:25 | XMS_ITS | Encounter Summary ---
Author Organization [facility] Address [address] [place] [address] Care Team Providers Care Shrub Planter Name Role Phone Jean Munoz MD Primary Care Provider Manny Rizzo MD Unavailable Reason for Visit * Reason Comments Other Encounter Details Date Type Department Care Team (Late st Contact Info) Description 03/30/2014 [facility] Pulmonology & Critical Care - [facility] [address] [place], [place] [address] Jeanette Virk MD [address] [facility] [place] [address] Other Social History Tobacco Use [...] Date End Da te DALIRESP 500 mcg tablet TAKE ONE TABLET BY MOUTH ONE TIME DAILY 30 Tab 11 03/30/2014 04/10/2015 documented in this encounter Miscellaneous Notes * Telephone Encounter - Odalys Wick - 04/02/2014 1414 EDT Daliresp refilled for pt via escription 04/02/14. documented in this encounter Plan of Treatment Upcoming Encounters Date Type Department Care Team (Late st Contact Info) Description 06/29/2024 14:15 EDT Office Visit [facility] [address] [place] [address] Jean Munoz MD [address] [place] [phone] documented as of this encounter Visit Diagnoses Not on filedocumented in this encounter Care Teams Shrub Planter Relationship Specialty Start Date End Date Jean Munoz MD [address] [place] [address] PCP - General 12/31/08 Manny Rizzo MD [address] [place] [phone] 04/20/10 documented as of this encounter
--- OUTSIDE RECORDS SUMMARY | 2024-06-10 07:25 | XMS_ITS | Encounter Summary ---
Author Organization [facility] Address [address] [place] [address] Care Team Providers Care Gas Golf Cart Repairer Name Role Phone Jean Munoz MD Primary Care Provider Manny Rizzo MD Unavailable Reason for Visit * Reason Onset Date Comments Medications Refill 05/07/2014 Encounter Details Date Type Department Care Team (Late st Contact Info) Description 05/07/2014 Telephone [facility] Sleep Program - [address] [address] Tiana Bacon [address] [place] [address] Medications Refill Social History Tobacco [...] Tabs by mouth daily. Earliest Fill Date: 05/08/14 60 Tab 0 05/08/2014 06/04/2014 methylphenidate (RITALIN;METHYLIN) 10 mg tablet Take one tab in the afternoon for narcolepsy. Earliest Fill Date: 05/08/14 30 Tab 0 05/08/2014 06/04/2014 documented in this encounter Miscellaneous Notes * Telephone Encounter - Corrina Ac RN - 05/07/2014 1331 EDT Let pt know (ritalin) prescription(s) ready for fish bait picker at the Sleep [facility]. * Telephone Encounter - Barbara Gimenez - 05/07/2014 1011 EDT PT needs refill on her Ritalin 20mg 2/day; Ritalin 10mg 1/day. 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 documented in this encounter Plan of Treatment Upcoming Encounters Date Type Department Care Team (Late st Contact Info) Description 06/29/2024 14:15 EDT Office Visit [facility] [address] [place], [place] [phone] Jean Munoz MD [address] [place] [phone] documented as of this encounter Visit Diagnoses Not on filedocumented in this encounter Discontinued Medications Medication Sig Discontinue Reason Start Date End Da te methylphenidate (RITALIN;METHYLIN) 10 mg tablet Take one tab in the afternoon for narcolepsy. Reorder 04/09/2014 05/07/2014 methylphenidate (RITALIN;METHYLIN) 20 mg tablet Take 2 Tabs by mouth daily. Reorder 04/09/2014 05/07/2014 documented as of this encounter Care Teams Gas Golf Cart Repairer Relationship Specialty Start Date End Date Jean Munoz MD [address] [place] [phone] PCP - General 12/31/08 Manny Rizzo MD [address] [place] [phone] 04/20/10 documented as of this encounter
--- OUTSIDE RECORDS SUMMARY | 2024-06-10 07:25 | XMS_ITS | Encounter Summary ---
Author Organization [facility] Address [address] [place] [address] Care Team Providers Care Bow Maker Machine Tender Name Role Phone Jean Munoz MD Primary Care Provider Manny Rizzo MD Unavailable Reason for Visit * Reason Onset Date Comments Medications Refill 10/22/2014 Encounter Details Date Type Department Care Team (Late st Contact Info) Description 10/22/2014 Telephone [facility] Sleep Program - [address] [address] Tiana Bacon [address] [place] [address] Medications Refill Social History Tobacco [...] Fill Date: 10/22/14 Daily Max: 2 Tabs 60 Tab 0 10/22/2014 11/19/2014 methylphenidate (RITALIN;METHYLIN) 10 mg tablet Take one tab in the afternoon for narcolepsy Earliest Fill Date: 10/22/14 30 Tab 0 10/22/2014 11/19/2014 documented in this encounter Miscellaneous Notes * Telephone Encounter - Corrina Ac RN - 10/22/2014 1331 EST Spoke with patient and let her know her (ritalin) prescription(s) ready [facility]. 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 She will be in town on 2.10. documented in this encounter Plan of Treatment Upcoming Encounters Date Type Department Care Team (Late st Contact Info) Description 06/29/2024 14:15 EDT Office Visit [facility] [address] [place] [address] Jean Munoz MD [address] [place] [address] documented as of this encounter Visit Diagnoses Not on filedocumented in this encounter Discontinued Medications Medication Sig Discontinue Reason Start Date End Da te methylphenidate (RITALIN;METHYLIN) 10 mg tablet Take one tab in the afternoon for narcolepsy. Earliest Fill Date: 09/25/14 Reorder 09/25/2014 10/22/2014 methylphenidate (RITALIN;METHYLIN) 20 mg tablet Take 2 Tabs by mouth daily. Earliest Fill Date: 09/25/14 Reorder 09/25/2014 10/22/2014 documented as of this encounter Care Teams Bow Maker Machine Tender Relationship Specialty Start Date End Date Jean Munoz MD [address] [place] [address] PCP - General 12/31/08 Manny Rizzo MD [address] [place] [address] 04/20/10 documented as of this encounter
--- OUTSIDE RECORDS SUMMARY | 2024-06-10 07:25 | XMS_ITS | Encounter Summary ---
Author Organization [facility] Address [address] [place] [address] Care Team Providers Care Medical Sonographer Name Role Phone Jean Munoz MD Primary Care Provider Manny Rizzo MD Unavailable Reason for Referral * Other Type (Routine) - Closed Specialty Diagnoses / Procedures Referred By [facility] Referred To Contact Diagnoses COPD (chronic obstructive pulmonary disease) ([facility]) SOB (shortness of breath) Jeanette Virk MD [address] [facility], [address] [place] [address] Referral ID Status Reason Start Date Expiration Date V isits Requested Visits Authorized [id number] Closed Other 08/07/2014 1 1 Question Answer Medication to be Prior Authorized: Daliresp (roflumilast) 500 mcg, take 1 tab daily. [place] in [address] Medicaid ID# [id number], Comments The purpose of this consult request is to inform the scheduling staff that a medication needs to be prior-authorized before it is prescribed and/or administered. Reason for Visit * Reason Onset Date Comments Prior Auth, Medication 08/07/2014 DALIRESP Encounter Details Date Type Department Care Team (Late st Contact Info) Description 08/07/2014 Orders Only [facility] Pulmonology & Critical Care - [address] [address] [address] COPD (chronic obstructive pulmonary disease) ([facility]) ([facility]) (Primary Dx); SOB (shortness of breath) Social History Tobacco Use Types Packs/Day Years [...] Info) Description 06/29/2024 14:15 EDT Office Visit [facility] Family Medicine [facility] [address] [place], [place] [id number] Jean Munoz MD [address] [place] [address] Scheduled Referrals Name Type Priority Associated Diagnoses Order Schedule AMB MEDICATION PRIOR AUTHORIZATION Outpatient Referral Routine COPD (chronic obstructive pulmonary disease) ([facility]) ([facility]) SOB (shortness of breath) Ordered: 08/07/2014 documented as of this encounter Visit Diagnoses Diagnosis COPD (chronic obstructive pulmonary disease) ([facility])- Primary Chronic airway obstruction, not elsewhere classified SOB (shortness of breath) Shortness of breath Screening for osteoporosis- Primary Special screening for osteoporosis Primary narcolepsy without cataplexy Chronic pain syndrome Chronic low back pain Lumbago Chronic use of opiate for therapeutic purpose Pain medication agreement Encounter for long-term (current) use of other medications Screen for colon cancer Special screening for malignant neoplasms, colon documented in this encounter Care Teams Medical Sonographer Relationship Specialty Start Date End Date Jean Munoz MD [address] [place] [address] PCP - General 12/31/08 Manny Rizzo MD [address] [place] [phone] 04/20/10 documented as of this encounter
--- OUTSIDE RECORDS SUMMARY | 2024-06-10 07:25 | XMS_ITS | Encounter Summary ---
Author Organization [facility] Address [address] [place] [address] Care Team Providers Care Hide Cooking Operator Name Role Phone Jean Munoz MD Primary Care Provider Manny Rizzo MD Unavailable Reason for Visit * Reason Comments Other Encounter Details Date Type Department Care Team (Late st Contact Info) Description 03/12/2014 [facility] [address] [place] [address] Jean Munoz MD [address] [place] [phone] Other Social History Tobacco Use Types [...] End Da te sumatriptan (IMITREX) 50 mg tablet TAKE ONE TABLET BY MOUTH FOR 1 DOSE NEEDED FOR MIGRAINE 9 Tab 3 03/12/2014 09/11/2014 documented in this encounter Miscellaneous Notes * Telephone Encounter - Yadira Mccauley RN - 03/12/2014 1355 EDT Medication(s) Requested: imitrex 50mg [facility]: [facility] Last Refill Date: 12/13/13 Last Visit Date: 03/02/14 Next Visit Date: 03/30/14 Is patient out of medication? unknown Yadira Mccauley RN 03/12/2014 13:55 documented in this encounter Plan of Treatment Upcoming Encounters Date Type Department Care Team (Late st Contact Info) Description 06/29/2024 14:15 EDT Office Visit [facility] Family Medicine [facility] [address] [place] [address] Jean Munoz MD [address] [place] [phone] documented as of this encounter Visit Diagnoses Not on filedocumented in this encounter Discontinued Medications Medication Sig Discontinue Reason Start Date End Da te sumatriptan (IMITREX) 50 mg tabletIndications:Migrai ne Take 1 Tab by mouth once as needed for 1 dose for Migraine. Reorder 12/13/2013 03/12/2014 documented as of this encounter Care Teams Hide Cooking Operator Relationship Specialty Start Date End Date Jean Munoz MD [address] [place] [phone] PCP - General 12/31/08 Manny Rizzo MD [address] [place] [phone] 04/20/10 documented as of this encounter
--- OUTSIDE RECORDS SUMMARY | 2024-06-10 07:25 | XMS_ITS | Encounter Summary ---
Author Organization [facility] Address [address] [place] [address] Care Team Providers Care Family Day Care Provider Name Role Phone Jean Munoz MD Primary Care Provider Manny Rizzo MD Unavailable Reason for Visit * Reason Comments Other Encounter Details Date Type Department Care Team (Late st Contact Info) Description 09/11/[address] [phone] Dianne Chun MD [address] [place] [phone] Other Social History Tobacco Use Types Packs/Day [...] te sumatriptan (IMITREX) 50 mg tabletIndications:Migrain e TAKE ONE TABLET BY MOUTH FOR 1 DOSE NEEDED FOR MIGRAINE 9 Tab 3 09/11/2014 02/19/2015 documented in this encounter Miscellaneous Notes * Telephone Encounter - Esha Sanon - 09/14/2014 1151 EST Patient notified * Telephone Encounter - Jean Munoz MD - 09/11/2014 2035 EST escript done, please notify patient, thanks * Telephone Encounter - Lizz Negro RN - 09/11/2014 1328 EST Medication(s) Requested: imitrex 50 mg tablet Pharmacy: [facility] Last Refill Date: 03/12/14 Last Visit Date: 06/25/14 Next Visit Date: 09/19/2014 Is patient out of medication? unknown LIZZ NEGRO RN 09/11/2014 13:29 documented in this encounter Plan of Treatment Upcoming Encounters Date Type Department Care Team (Late st Contact Info) Description 06/29/2024 14:15 EDT Office Visit [address] [address] Jean Munoz MD [address] [place] [address] documented as of this encounter [...] FOR 1 DOSE NEEDED FOR MIGRAINE Reorder 03/12/2014 09/11/2014 documented as of this encounter Care Teams Family Day Care Provider Relationship Specialty Start Date End Date Jean Munoz MD [address] [place] [address] PCP - General 12/31/08 Manny Rizzo MD [address] [place] [address] 04/20/10 documented as of this encounter
--- OUTSIDE RECORDS SUMMARY | 2024-06-10 07:25 | XMS_ITS | Encounter Summary ---
Author Organization [facility] Address [address] [place] [address] Care Team Providers Care Certified Ophthalmic Surgical Assistant Name Role Phone Jean Munoz MD Primary Care Provider Manny Rizzo MD Unavailable Reason for Visit * Reason Comments Other cystocele * Consult (Routine/Next Available) - Specialty Report Received Specialty Diagnoses / Procedures Referred By Alex weldon Referred To Contact Pelvic Medicine Diagnoses Hesitancy Straining to void Alban Powers MD [address] [place] [address] Judith Lloyd MD [address] [facility] Medical Office Building, [address] [place] [phone] Referral ID Status Reason Start Date Expiration Date Visits Requested Visits Authorized [id number] Specialty Report Received Specialty Services Required 05/25/2014 1 1 Encounter Details Date Type Department Care Team (Latest Contact Info) Description 06/19/2014 10:00 EDT Office Visit [facility] Pelvic Medicine and Reconstructive Surgery - Medical Office Building [address] [place] [address] [address] Sandra Terry MD [address] [facility] Medical Office Building, [address] [place] [phone] Incontinence (Primary Dx) Discharge Disposition: Auto Discharge Social [...] Sign Reading Time Taken Comments Blood Pressure 103/66 06/19/201456 EDT Pulse 79 06/19/2014 09 EDT Temperature - - Respiratory Rate - - Oxygen Saturation - - Inhaled Oxygen Concentration - - Weight 87.1 kg (192 lb) 06/19/2014 09 EDT Height 162.6 cm (5' 4) 06/19/2014 09 EDT Body Mass Index 32.96 06/19/2014 0956 EDT documented in this encounter Functional Status [...] as of this encounter Discharge Diagnoses Diagnosis 788.30 ENURESIS NOS[ICD-9-CM] documented in this encounter Discharge Disposition Disposition Code Departure Means Destination Auto Discharge documented in this encounter Progress Notes * Sandra Terry MD - 06/19/2014 1013 EDT [facility] FEMALE EXAMINATION Patient: Liset Viera is an 53 y.o. female seen for consultation at the request of Alban Powers MD for Other. HPI 53 yo P2 with 2 yr h/o worsening urinary hesitancy x [address] Powers with Urodynamic testing and cystoscopy( see previous notes). Started on Tamsulosin 1 yr ago, with some improvementin symptoms. Considered trial pf Pelvic Floor PT, but was not scheduled. Pt referred for evaluationof possible pelvic floor prolapse. Pt denies vaginal pressure. Had vaginal hysterectomy for prolapse in 1996. Forceps delivery with first vaginal . Difficulty with rectal emptying, rare rectal incontinence. ROS Pelvic pain: No Dyspareunia: No Recurrent UTI: No Hematuria: No A review of the patient's medical, social, and family history along with medications and allergies was performed. OB History Grav Para Term Abortions TAB SAB Ect Mult Living Past Medical History Diagnosis Date ??? UTI [...] ??? [facility] ??? Cyst incision and drainage 09/17/10 [...] Hx ??? Depression Brother ??? Depression Brother History Social History ??? Marital Status: Spouse Name: N/A Number of Children: N/A ??? Years of Education: N/A Occupational History ??? None Social History Main Topics ??? Smoking status: Former Smoker -- 2.00 packs/day for 35 years Types: Cigarettes Quit date: 10/14/2010 ??? Smokeless tobacco: Never Used ??? Alcohol Use: No Comment: rarely ??? Drug Use: No Comment: no longer using. ??? Sexual Activity: Yes Partners: Male Other Topics Concern ??? None Social History Narrative from [place] (ETOH) Son Alexi and Daughter Yadira Currently living alone in [facility] Current Outpatient Prescriptions Medication Sig Dispense Refill [...] 2 times daily. 3 Inhaler 3 ??? HYDROcodone-acetaminophen (NORCO) 5-325 [...] [Ketorolac Tromethamine] Hives ??? Motrin [Ibuprofen] Itching A 15 point Review of Systems was performed. Positives related to the patient???s complaint are listed below; all others are either negative or documented in the patient???s scanned Review of Systems. PELVIC EXAM External Genitalia: Normal Vaginal Examination: Vaginal atrophy moderate Cervix absent Uterus: absent Pelvic Floor Relaxation: present cystocele, stage: 1 and rectocele, stage: 2. Probable enterocele Adnexa: Normal Urethra Normal Bladder Normal Rectal spincter tone: Present Rectal prolapse: Absent Rectal hemorrhoids: Absent Perineum Normal Vitals BP 103/66 Pulse 79 Ht 162.6 cm (64) Wt 87.091 kg (192 lb) BMI 32.94 kg/m2 LMP 01/11/1987 General Physical Exam Constitutional/General: Oriented to person, place, and time. Appears well- developed and well-nourished. HEENT: Head: normocephalic and atraumatic Eyes: conjunctivae and EOM normal Nose: nose normal Throat/mouth: oropharynx clear and moist Neck: normal range of motion Pulmonary: abnormal: coarse Abdomen: abdomen soft Musculoskeletal: normal range of motion Skin: warm and dry Neuro/Psych: alert and oriented to person, place, and time Labs Assessment Liset Viera is a 53 y.o. female with posterior vaginal wall defect, possible enterocele. Urinary hesitancy. Plan Pelvic Floor Physical Therapy. Consult Colorectal surgery bowel complaints(pt to consider, will call if she would like to pursue). Sandra Terry MD documented in this encounter H&P Notes * WATER TREATMENT PLANT ENGINEER, SCAN 2 - 06/19/2014 1551 EDT documented in this encounter Plan of Treatment Upcoming Encounters Date Type Department Care Team (Late st Contact Info) Description 06/29/2024 14:15 EDT Office Visit [facility] [address] [place] [address] Jean Munoz MD [address] [place] [address] documented as of this encounter Visit Diagnoses Diagnosis Incontinence- Primary Unspecified urinary incontinence Screening for osteoporosis- Primary Special screening for osteoporosis Primary narcolepsy without cataplexy Chronic pain syndrome Chronic low back pain Lumbago Chronic use of opiate for therapeutic purpose Pain medication agreement Encounter for long-term (current) use of other medications Screen for colon cancer Special screening for malignant neoplasms, colon documented in this encounter Care Teams Certified Ophthalmic Surgical Assistant Relationship Specialty Start Date End Date Jean Munoz MD [address] [place] [address] PCP - General 12/31/08 Manny Rizzo MD [address] [place] [address] 04/20/10 documented as of this encounter
--- OUTSIDE RECORDS SUMMARY | 2024-06-10 07:25 | XMS_ITS | Encounter Summary ---
Author Organization [facility] Address [address] [place] [address] Care Team Providers Care Escalator Operator Name Role Phone Jean Munoz MD Primary Care Provider Manny Rizzo MD Unavailable Reason for Visit * Reason Onset Date Comments Other 08/22/2014 MRI Needs info Encounter Details Date Type Department Care Team (Late st Contact Info) Description 08/22/2014 Telephone [facility] Interventional Pain [address] [place] [address] Ho Holt, DO [address] [facility] [address] [place], [place] [phone] Other (MRI Needs info) Social History Tobacco Use Types Packs/Day Years [...] encounter Miscellaneous Notes * Telephone Encounter - Nikita Clark RN - 08/23/2014 1118 EST RN called patient and she states she has titanium in her neck from fusion and has had MRI since. RNthen called MRI and they said patient is all set. * Telephone Encounter - Nikita Clark RN - 08/22/2014 1414 EST RN called patient to get info on metal in body. Left a message to call back with more info. * Telephone Encounter - Rosalind Joyner - 08/22/2014 1407 EST Talked with MRI scheduling. [phone] They need information on the Metal in the patient's body. They need to know were the metal is. documented in this encounter Plan of Treatment Upcoming Encounters Date Type Department Care Team (Late st Contact Info) Description 06/29/2024 14:15 EDT [facility] [address] [place] [address] Jean Munoz MD [address] [place] [address] documented as of this encounter Visit Diagnoses Not on filedocumented in this encounter Care Teams Escalator Operator Relationship Specialty Start Date End Date Jean Munoz MD [address] [place] [address] PCP - General 12/31/08 Manny Rizzo MD [address] [place] [phone] 04/20/10 documented as of this encounter
--- OUTSIDE RECORDS SUMMARY | 2024-06-10 07:25 | XMS_ITS | Encounter Summary ---
Author Organization [facility] Address [address] [place] [address] Care Team Providers Care Hearing Consultant Name Role Phone Jean Munoz MD Primary Care Provider Manny Rizzo MD Unavailable Reason for Visit * Reason Onset Date Comments Medications Refill 10/08/2014 Encounter Details Date Type Department Care Team (Late st Contact Info) Description 10/08/[address] [facility] [address] [place], [place] [phone] Jean Munoz MD [address] [place] [address] Medications Refill Social History Tobacco [...] Start Date End Da te pregabalin (LYRICA) 150 mg capsuleIndications:Chronic back pain Take 1 Cap by mouth 3 times daily. 270 Each 1 10/08/2014 04/10/2015 documented in this encounter Miscellaneous Notes * Telephone Encounter - Jean Munoz MD - 10/09/2014 1315 EST Script done * Telephone Encounter - Lizz Negro RN - 10/09/2014 0819 EST Medication(s) Requested: lyrica 150 mg capsule Pharmacy: [facility] Last Refill Date: 03/30/14 Last Visit Date: 09/19/14 Next Visit Date: 12/05/2014 Is patient out of medication? unknown LIZZ NEGRO RN 10/09/2014 8:19 * Telephone Encounter - Vanessa Wade - 10/08/2014 1227 EST Incoming fax looking for refill of Lyrica. Patient seen recently and has another upcoming appt documented in this encounter Plan of Treatment Upcoming Encounters Date Type Department Care Team (Late st Contact Info) Description 06/29/2024 14:[address] [facility] [address] [place] [address] Jean Munoz MD [address] [place] [address] documented as of this encounter Visit Diagnoses Diagnosis Chronic back pain- Primary Backache, unspecified Screening for osteoporosis- Primary Special [...] Start Date End Da te pregabalin (LYRICA) 150 mg capsuleIndications:Chroni c back pain Take 1 Cap by mouth 3 times daily. Reorder 03/30/2014 10/08/2014 documented as of this encounter Care Teams Hearing Consultant Relationship Specialty Start Date End Date Jean Munoz MD [address] [place] [phone] PCP - General 12/31/08 Manny Rizzo MD [address] [place] [address] 04/20/10 documented as of this encounter
--- OUTSIDE RECORDS SUMMARY | 2024-06-10 07:25 | XMS_ITS | Encounter Summary ---
Author Organization [facility] Address [address] [place] [address] Care Team Providers Care Golf Ball Marker Name Role Phone Jean Munoz MD Primary Care Provider Manny Rizzo MD Unavailable Encounter Details Date Type Department Care Team (Latest Contact Info) Description 08/29/2014 9:58 EST - 08/29/2014 23:59 EST Hospital Encounter [facility] - [address] [address] Jean Munoz MD [address] [place] [phone] Discharge Disposition: Home or Self Care Social [...] as of this encounter Discharge Diagnoses Diagnosis V72.5 RADIOLOGICAL EXAM NEC[ICD-9-CM] documented in this encounter Medications at Time [...] mcg/actuation inhalerIndications:Asth ma,COPD (chronic obstructive pulmonary disease) ([facility]) Inhale 2 Puffs as directed 2 times daily. 3 Inhaler 3 12/13/2013 02/12/2015 HYDROcodone-acetaminoph en (NORCO) 5-325 mg tablet Take 1-2 Tabs by mouth every 6 hours as needed for up to 28 days for Pain. Earliest Fill Date: 08/22/14 112 Tab 0 08/22/2014 09/19/2014 HYDROcodone-acetaminoph en (NORCO) 5-325 mg tablet Take 1-2 Tabs by mouth every 6 hours as needed for up to 28 days for Pain. Earliest Fill Date: 07/25/14 112 Tab 0 07/25/2014 09/19/2014 HYDROcodone-acetaminoph en (NORCO) 5-325 mg tablet Take 1-2 Tabs by mouth every 6 hours as needed for up to 28 days for Pain. Earliest Fill Date: 06/27/14 112 Tab 0 06/27/2014 09/19/2014 hydroxypropyl methylcellulose (ISOPTO TEARS) 0.5 % ophthalmic solution Place 1 Drop into both eyes 5 times daily. 12/10/2010 10/06/2023 ipratropium-albuterol (DUONEB) 0.5 mg-3 mg(2.5 mg base)/3 mL nebulizer solutionIndications:Ast hma,COPD (chronic obstructive pulmonary disease) ([facility]) Take 3 mL by nebulization every 4 hours as needed for Wheezing. 3 mL 3 02/16/2014 04/10/2015 levalbuterol (XOPENEX HFA) 45 mcg/actuation inhaler Take 2 puffs by mouth as needed for shortness of breath. 3 Inhaler 3 12/13/2013 10/16/2014 methylphenidate (RITALIN;METHYLIN) 10 mg tablet Take one tab in the afternoon for narcolepsy. Earliest Fill Date: 08/28/14 30 Tab 0 08/28/2014 09/24/2014 methylphenidate (RITALIN;METHYLIN) 20 mg tablet Take 2 Tabs by mouth daily. 60 Tab 0 08/27/2014 09/24/2014 mometasone (NASONEX) 50 mcg/actuation nasal sprayIndications:Season al [...] 1 12/13/2013 04/10/2015 pregabalin (LYRICA) 150 mg capsuleIndications:Air Duct Mechanic majo back pain Take 1 Cap by mouth 3 times daily. 270 Each 1 03/30/2014 10/08/2014 rOPINIRole (REQUIP) 2 mg tabletIndications:Restl ess legs syndrome Take 1 Tab by mouth at bedtime. 90 Tab 3 12/13/2013 01/15/2015 sertraline (ZOLOFT) 100 mg tabletIndications:Depre ssion Take 2 Tabs by mouth daily. 180 Tab 3 12/13/2013 02/04/2015 sumatriptan (IMITREX) 50 mg tablet TAKE ONE TABLET BY MOUTH FOR 1 DOSE NEEDED FOR MIGRAINE 9 Tab 3 03/12/2014 09/11/2014 tamsulosin (FLOMAX) 0.4 mg capsule Take 1 Cap by mouth daily. 90 Cap 3 05/25/2014 10/04/2015 tamsulosin (FLOMAX) 0.4 mg capsule Take one capsule by mouth every day (take it half an hour after supper) 90 Cap 1 08/14/2013 04/28/2015 tiotropium (SPIRIVA WITH HANDIHALER) 18 mcg inhalation capsuleIndications:COPD (chronic obstructive pulmonary disease) ([facility]) Inhale 1 Cap as directed daily. 90 Cap 3 12/13/2013 02/12/2015 zolpidem (AMBIEN) 5 mg tabletIndications:Insom yesi Take 1 Tab by mouth at bedtime as needed for Sleep. 30 Tab 5 06/11/2014 12/11/2014 documented as of this encounter Discharge Disposition Disposition Code Departure Means Destination Home or Self [facility]pc documented in this encounter Plan of Treatment Upcoming Encounters Date Type Department Care Team (Late st Contact Info) Description 06/29/2024 14:15 EDT [facility] Visit [facility] [address] [place] [address] Jean Munoz MD [address] [place] [address] documented as of this encounter Visit Diagnoses Not on filedocumented in this encounter Care Teams Golf Ball Marker Relationship Specialty Start Date End Date Jean Munoz MD [address] [place] [address] PCP - General 12/31/08 Manny Rizzo MD [address] [place] [phone] 04/20/10 documented as of this encounter
--- OUTSIDE RECORDS SUMMARY | 2024-06-10 07:25 | XMS_ITS | Encounter Summary ---
Author Organization [facility] Address [address] [place] [address] Care Team Providers Care Watch Supervisor Name Role Phone Jean Munoz MD Primary Care Provider Manny Rizzo MD Unavailable Reason for Visit * Reason Onset Date Comments Follow-up 05/09/2014 test Encounter Details Date Type Department Care Team (Late st Contact Info) Description 05/09/2014 Telephone [facility] Urology - [facility] [address] [place], [place] [id number] Albna Powers MD [address] [place] [phone] Follow-up (test) Social History Tobacco Use Types Packs/Day Years [...] Miscellaneous Notes * Telephone Encounter - Yadira Izaguirre - 05/17/2014 1256 EDT Appoint[address] scheduled with Dr. Powers on 05/25/14. * Telephone Encounter - Juliette Melvin RN - 05/15/2014 1008 EDT TC to pt. Per Dr. Powers would like pt to come in for an office visit before the urodynamics study. Will send to Dr. Powers's [facility] and they will schedule follow up. Pt understands. * Telephone Encounter - Juliette Melvin RN - 05/09/2014 1144 EDT TC to pt. Pt is not scheduled for a follow up appointment with Dr. Powers. Per Dr. Powers's note pt was to have a urodynamic study done 02/2013. Pt was never called to scheduled for the study. Pt needs refill for Flomax prescription, no mention in Dr. Powers's last note and pt has not seen Dr. Powers since 02/2013. Will follow up with Dr. Powers about urodynamic study as well as refill of Flomax when Dr. Powers returns to the office next week. Pt understands. * Telephone Encounter - Tanvi Brandt - 05/09/2014 1019 EDT Per pt she was to have a follow up test and has not heard back. Pt last seen 02/14/13, pt states she is also unable to get refill on tamsulosinn and is all out. documented in this encounter Plan of Treatment Upcoming Encounters Date Type Department Care Team (Late st Contact Info) Description 06/29/2024 14:15 EDT Office Visit [facility] [address] [place] [address] Jean Munoz MD [address] [place] [phone] documented as of this encounter Visit Diagnoses Not on filedocumented in this encounter Care Teams Watch Supervisor Relationship Specialty Start Date End Date Jean Munoz MD [address] [place] [phone] PCP - General 12/31/08 Manny Rizzo MD [address] [place] [address] 04/20/10 documented as of this encounter
--- OUTSIDE RECORDS SUMMARY | 2024-06-10 07:25 | XMS_ITS | Encounter Summary ---
Author Organization [facility] Address [address] [place] [address] Care Team Providers Care Automatic Coin Machine Mechanic Name Role Phone Jean Munoz MD Primary Care Provider Manny Rizzo MD Unavailable Reason for Visit * Reason Onset Date Comments Appointment Related 08/23/2014 Encounter Details Date Type Department Care Team (Late st Contact Info) Description 08/23/2014 Telephone [facility] Interventional Pain [address] [place] [address] Ho Holt, DO [address] [facility] [address] [place], [place] [phone] Appointment Related Social History Tobacco Use Types [...] encounter Miscellaneous Notes * Telephone Encounter - Eric Wilson - 08/23/2014 1213 EST NOTIFIED PT OF MRI PENDING APPOINTMENT AT [address] [place] [address] SEP 12 REG 4:15 START 4;45 PM documented in this encounter Plan of Treatment Upcoming Encounters Date Type Department Care Team (Late st Contact Info) Description 06/29/2024 14:15 EDT Office Visit [facility] [address] [place], [place] [phone] Jean Munoz MD [address] [place] [phone] documented as of this encounter Visit Diagnoses Not on filedocumented in this encounter Care Teams Automatic Coin Machine Mechanic Relationship Specialty Start Date End Date Jean Munoz MD [address] [place] [phone] PCP - General 12/31/08 Manny Rizzo MD [address] [place] [address] 04/20/10 documented as of this encounter
--- OUTSIDE RECORDS SUMMARY | 2024-06-10 07:25 | XMS_ITS | Encounter Summary ---
Author Organization [facility] Address [address] [place] [address] Care Team Providers Care Sat Tutor Name Role Phone Jean Munoz MD Primary Care Provider Manny Rizzo MD Unavailable Reason for Visit * Reason Onset Date Comments Prior Auth, Medication 04/02/2014 Encounter Details Date Type Department Care Team (Late st Contact Info) Description 04/02/2014 Telephone [facility] [address] [place] [address] Jean Munoz MD [address] [place] [phone] Prior Auth, Medication Social History [...] Miscellaneous Notes * Telephone Encounter - Kavita Mann - 04/02/2014 1608 EDT Medication: fexofenadine 180mg Insurance Co: [place] medicaid Approval # (if applicable): Approval dates: 04.02.14-04.02.15 Name of Pharmacy notified: documented in this encounter Plan of Treatment Upcoming Encounters Date Type Department Care Team (Late st Contact Info) Description 06/29/2024 14:15 EDT Office Visit [facility] [address] [place], [place] [phone] Jean Munoz MD [address] [place] [phone] documented as of this encounter Visit Diagnoses Not on filedocumented in this encounter Care Teams Sat Tutor Relationship Specialty Start Date End Date Jean Munoz MD [address] [place] [phone] PCP - General 12/31/08 Manny Rizzo MD [address] [place] [phone] 04/20/10 documented as of this encounter
--- OUTSIDE RECORDS SUMMARY | 2024-06-10 07:25 | XMS_ITS | Encounter Summary ---
Author Organization [facility] Address [address] [place] [address] Care Team Providers Care Application Developer Name Role Phone Jean Munoz MD Primary Care Provider Manny Rizzo MD Unavailable Reason for Visit * Reason Comments Other Encounter Details Date Type Department Care Team (Late st Contact Info) Description 10/16/[address] [facility] [address] [place] [address] Jean Munoz MD [address] [place] [phone] Other Social History Tobacco Use Types [...] FOR SHORTNESS OF BREATH 45 g 0 10/16/2014 02/12/2015 documented in this encounter Miscellaneous Notes * Telephone Encounter - Lizz Negro RN - 10/16/2014 1646 EST Medication(s) Requested: xopenex hfa 45 mcg inhaler [facility] Last Refill Date: 12/13/13 Last Visit Date: 09/19/14 Next Visit Date: 12/05/2014 Is patient out of medication? unknown LIZZ NEGRO RN 10/16/2014 16:46 documented in this encounter Plan of Treatment Upcoming Encounters Date Type Department Care Team (Late st Contact Info) Description 06/29/2024 14:15 EDT Office Visit [facility] [address] [place] [address] Jean Munoz MD [address] [place] [phone] documented as of this encounter Visit Diagnoses Not on filedocumented in this encounter Discontinued Medications Medication Sig Discontinue Reason Start Date End Da te levalbuterol (XOPENEX HFA) 45 mcg/actuation inhaler Take 2 puffs by mouth as needed for shortness of breath. Reorder 12/13/2013 10/16/2014 documented as of this encounter Care Teams Application Developer Relationship Specialty Start Date End Date Jean Munoz MD [address] [place] [phone] PCP - General 12/31/08 Manny Rizzo MD [address] [place] [phone] 04/20/10 documented as of this encounter
--- OUTSIDE RECORDS SUMMARY | 2024-06-10 07:25 | XMS_ITS | Encounter Summary ---
Author Organization [facility] Address [address] [place] [address] Care Team Providers Care Mess Attendant Crew Name Role Phone Jean Munoz MD Primary Care Provider Manny Rizzo MD Unavailable Reason for Visit * Reason Onset Date Comments Medications Refill 06/04/2014 Encounter Details Date Type Department Care Team (Late st Contact Info) Description 06/04/2014 Telephone [facility] Sleep Program - [address] [phone] Tiana Bacon [address] [place] [address] Medications Refill Social History Tobacco [...] by mouth daily. Earliest Fill Date: 06/05/14 60 Tab 0 06/05/2014 07/02/2014 methylphenidate (RITALIN;METHYLIN) 10 mg tablet Take one tab in the afternoon for narcolepsy. 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 * Telephone Encounter - Duy Booth - 06/04/2014 1120 EDT Calling to request refills of Ritalin to be picked up on Wednesday. documented in this encounter Plan of Treatment Upcoming Encounters Date Type Department Care Team (Late st Contact Info) Description 06/29/2024 14:15 EDT Office Visit [facility] Family Medicine [facility] [address] [place] [address] Jean Munoz MD [address] [place] [phone] documented as of this encounter Visit Diagnoses Not on filedocumented in this encounter Discontinued Medications Medication Sig Discontinue Reason Start Date End Da te methylphenidate (RITALIN;METHYLIN) 10 mg tablet Take one tab in the afternoon for narcolepsy. Earliest Fill Date: 05/08/14 Reorder 05/08/2014 06/04/2014 methylphenidate (RITALIN;METHYLIN) 20 mg tablet Take 2 Tabs by mouth daily. Earliest Fill Date: 05/08/14 Reorder 05/08/2014 06/04/2014 documented as of this encounter Care Teams Mess Attendant Crew Relationship Specialty Start Date End Date Jean Munoz MD [address] [place] [phone] PCP - General 12/31/08 Manny Rizzo MD [address] [place] [phone] 04/20/10 documented as of this encounter
--- OUTSIDE RECORDS SUMMARY | 2024-06-10 07:25 | XMS_ITS | Encounter Summary ---
Author Organization [facility] Address [address] [place] [address] Care Team Providers Care Physician [facility] Name Role Phone Jean Munoz MD Primary Care Provider Manny Rizzo MD Unavailable Reason for Visit * Reason Onset Date Comments Medications Refill 08/27/2014 Encounter Details Date Type Department Care Team (Late st Contact Info) Description 08/27/2014 Telephone [facility] Sleep Program - [address] [address] Tiana Bacon [address] [place] [address] Medications Refill Social History Tobacco [...] mouth daily. 60 Tab 0 08/27/2014 09/24/2014 methylphenidate (RITALIN;METHYLIN) 10 mg tablet Take one tab in the afternoon for narcolepsy. 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 * Telephone Encounter - Duy Booth - 08/27/2014 1144 EST Calling to request refills of Ritalin to be picked up tomorrow. documented in this encounter Plan of Treatment Upcoming Encounters Date Type Department Care Team (Late st Contact Info) Description 06/29/2024 14:15 EDT Office Visit [facility] [address] [place] [address] Jean Munoz MD [address] [place] [phone] documented as of this encounter Visit Diagnoses Not on filedocumented in this encounter Discontinued Medications Medication Sig Discontinue Reason Start Date End Da te methylphenidate (RITALIN;METHYLIN) 10 mg tablet Take one tab in the afternoon for narcolepsy. Earliest Fill Date: 07/31/14 Reorder 07/31/2014 08/27/2014 methylphenidate (RITALIN;METHYLIN) 20 mg tablet Take 2 Tabs by mouth daily. Earliest Fill Date: 07/31/14 Reorder 07/31/2014 08/27/2014 documented as of this encounter Care Teams Physician [facility] Relationship Specialty Start Date End Date Jean Munoz MD [address] [place] [phone] PCP - General 12/31/08 Manny Rizzo MD [address] [place] [phone] 04/20/10 documented as of this encounter
--- OUTSIDE RECORDS SUMMARY | 2024-06-10 07:26 | XMS_ITS | Encounter Summary ---
Author Organization [facility] Address [address] [place] [address] Care Team Providers Care Manager Desktop Name Role Phone Jean Munoz MD Primary Care Provider Manny Rizzo MD Unavailable Reason for Visit * Reason Onset Date Comments Pharmacy 12/13/2013 Encounter Details Date Type Department Care Team (Late st Contact Info) Description 12/13/2013 Telephone [facility] [address] [place] [address] Jean Munoz MD [address] [place] [phone] Pharmacy Social History Tobacco Use Types [...] documented as of this encounter Functional Status Cognitive Status Response Date of Assessm ent Because of a physical, menta l, or emotional condition, do you have serious difficulty concentrating, remembering, or making decisions? (5 years old or older) Yes 02/26/2013 documented as of this encounter Miscellaneous Notes * Telephone Encounter - Yadira Mccauley, RN - 12/13/2013 1707 EDT Outgoing call to pharmacy and notified pharmacist that I believe the 3 inhalers if for a 90 day supply. Pharmacist states this medication needs a PA; routed to [facility]. * Telephone Encounter - Sapna Dominguez - 12/13/2013 1702 EDT Received fax from pharmacy asking how many days supply 3 xopenex inhalers is for? Please call. documented in this encounter Plan of Treatment Upcoming Encounters Date Type Department Care Team (Late st Contact Info) Description 06/29/2024 14:15 EDT Office Visit [facility] Medicine [facility] [address] [place], [place] [phone] Jean Munoz MD [address] [place] [phone] documented as of this encounter Visit Diagnoses Not on filedocumented in this encounter Care Teams Manager Desktop Relationship Specialty Start Date End Date Jean Munoz MD [address] [place] [phone] PCP - General 12/31/08 Manny Rizzo MD [address] [place] [phone] 04/20/10 documented as of this encounter
--- OUTSIDE RECORDS SUMMARY | 2024-06-10 07:26 | XMS_ITS | Encounter Summary ---
Author Organization [facility] Address [address] [place] [address] Care Team Providers Care Tool Repairer Bench Name Role Phone Jean Munoz MD Primary Care Provider Manny Rizzo MD Unavailable Reason for Visit * Reason Comments Annual Exam patient states that she doesn't want to do PE today has other issues to discus. Medications Refill may need refill on h ydrocodone. please check. Encounter Details Date Type Department Care Team (Late st Contact Info) Description 03/02/2014 14:30 EDT Office Visit [facility] [address] [place] [address] Jean Munoz MD [address] [place] [address] Routine general medical examination at a health care facility (Primary Dx); Chronic back pain; Cervicalgia; Chronic knee pain; Chronic obstructive pulmonary disease (CMS-HCC) (HCC-CMS); Asthma; Insomnia; Depression; Hesitancy Social History Tobacco Use Types Packs/Day [...] Sign Reading Time Taken Comments Blood Pressure 102/70 03/02/2014 1427 EDT Pulse 84 03/02/2014 1427 EDT Temperature 36.2 ??C (97.2 ??F) 03/02/2014 1427 EDT Respiratory Rate 16 03/02/2014 1427 EDT Oxygen Saturation - - Inhaled Oxygen Concentration - - Weight 87.5 kg (193 lb) 03/02/2014 1427 EDT Height 162.6 cm (5' 4) 03/02/2014 1427 EDT Body Mass Index 33.13 03/02/2014 1427 EDT documented in this encounter Functional Status [...] 28 days for Pain. 112 Tab 0 03/07/2014 03/30/2014 documented in this encounter Progress Notes * Jean Munoz MD - 03/02/2014 1516 EDT Female Well Adult Preventative Care Visit Patient ID: Liset Viera is an 53 y.o. female. Subjective: HISTORY OF PRESENT ILLNESS: See Health Care Questionnaire for details and ROS. Brings in paperwork for disability, here with nurse case management Chronic back pain No recent F/U Pain Clinic, has reschduled Cervicalgia Has been stiff this week No change overal Recent hospitalization Asthma Better this week No recent wheezing Meds Advair, Spiriva, Xopenex Singulair, neb prn (not since discharge) Insomnia Variable, Ambien 3-4x/week Not on trazodone, mirtazapine Chronic knee pain F/U Dr Glynn pending Chronic obstructive pulmonary disease Recent hospital stay, see DC summary, not on O2 Severe major depression without psychotic features Variable per patient Has seen couselor (Piter Jackson) Zoloft 200 mg daily x3-4 years, has helped, no side effects No other med now, has been on Wellbutrin (ineffective), Depakote (for migraines?), citalopram (ineffective) Gastroesophageal reflux disease Doing well Migraine Pretty good lately per patient Chronic pain syndrome Overall 02/20, most back pain worse than knee Hesitancy Still a problem, needs F/U Urology, will call for F/U Behavioral Health Screen PHQ-2 Little interest or pleasure in doing things?: several days Feeling down, depressed, or hopeless?: nearly every day PHQ-2 SUBTOTAL: 4 SASQ How many times in the past year have you had 4 or more drinks in a single day?: Once AUDIT-10 How often do you have a drink containing alcohol?: Never Patient Active Problem List Diagnosis ??? Severe [...] Fatty liver ??? Chronic pain syndrome ??? Arthritis ??? Cervical spondylosis ??? Vitreous syneresis ??? Diplopia ??? Blepharitis of both eyes ??? Senile nuclear sclerosis ??? Tear film insufficiency, unspecified ??? Seasonal allergic rhinitis ??? Lumbar radicular syndrome ??? Menopausal flushing ??? Irritable bowel syndrome (IBS) ??? Rosacea ??? Left knee pain ??? Narcolepsy without cataplexy ??? Varicose veins ??? Other complications due to other internal orthopedic device, implant, and graft ??? Degeneration of lumbar or lumbosacral intervertebral disc ??? Depression ??? Low back pain ??? Hesitancy ??? Dizziness ??? Wears eyeglasses ??? Numbness ??? Chronic fatigue ??? Left upper quadrant pain ??? Chronic obstructive pulmonary disease ??? Abdominal pain, unspecified site ??? Blurry vision, bilateral ??? Pyogenic granuloma [...] Ankle fracture surgery 04/01/10 left ankle [facility] ??? Cyst incision and drainage [...] Depression Brother Allergies Allergen Reactions ??? Toradol (Ketorolac Tromethamine) Hives ??? Motrin (Ibuprofen) Itching Current Outpatient Prescriptions Medication Sig Dispense [...] daily. 3 Inhaler 3 ??? [START ON 03/07/2014] HYDROcodone-acetaminophen (NORCO) 5-325 mg tablet Take 1-2 [...] afternoon for narcolepsy. Earliest Fill Date: 02/13/14 30 Tab 0 ??? methylphenidate (RITALIN;METHYLIN) 20 mg tablet Take 2 Tabs by mouth daily. Earliest Fill Date:02/13/14 60 Tab 0 ??? mometasone (NASONEX) 50 mcg/actuation nasal spray 2 Sprays by nasal route daily. 3 Inhaler 3 ??? montelukast (SINGULAIR) 10 mg tablet Take 1 Tab by mouth daily. 90 Tab 3 ??? nortriptyline (PAMELOR) 75 mg capsule Take 1 Cap by mouth daily. 90 Each 3 ??? omeprazole (PRILOSEC) 40 mg capsule Take 1 Cap by mouth daily. 180 Cap 3 ??? ondansetron (ZOFRAN) 4 mg [...] sumatriptan (IMITREX) 50 mg tablet Take 1 Tab by mouth once as needed for 1 dose for Migraine. 9 Tab 1 ??? tamsulosin (FLOMAX) 0.4 [...] current facility-administered medications for this visit. ROS Objective: BP 102/70 Pulse 84 Temp(Src) 36.2 ??C (97.2 ??F) (Tympanic) Resp 16 Ht 162.6 cm (64) Wt 87.544 kg (193 lb) BMI 33.11 kg/m2 LMP 01/11/1987 Body mass index is 33.11 kg/(m^2). Physical Exam Nursing note and vitals reviewed. Constitutional: She appears well-developed and well-nourished. No distress. oveweight HENT: Right Ear: Tympanic membrane and external ear normal. Left Ear: Tympanic membrane and external ear normal. Nose: Nose normal. Mouth/Throat: Uvula is midline, oropharynx is clear and moist and mucous membranes are normal. Eyes: Conjunctivae are normal. No scleral icterus. Neck: No thyromegaly present. Cardiovascular: Normal rate, regular rhythm and normal heart sounds. No murmur heard. Pulmonary/Chest: Effort normal and breath sounds normal. No respiratory distress. She has no wheezes. She has no rhonchi. She has no rales. Abdominal: Soft. Bowel sounds are normal. She exhibits no distension and no mass. There is no hepatosplenomegaly. There is no tenderness. Genitourinary: deferred Musculoskeletal: She exhibits no edema. Lymphadenopathy: She has no cervical adenopathy. She has no axillary adenopathy. Right: No supraclavicular adenopathy present. Left: No supraclavicular adenopathy present. Neurological: No cranial nerve deficit. Skin: Skin is warm, dry and intact. No rash noted. Psychiatric: She has a normal mood and affect. Assessment: Breast cancer screen: Screening mammogram done 2012, F/U pending Cervical cancer screen: Screening not indicated: s/p hysterectomy for benign disease. Colon cancer screen: Screening colonoscopy not indicated: colo done 2008, due 2018 Skin cancer screen: We reviewed the characteristics of concerning skin lesions. Patient does not report any concerning lesions. Gonorrhea/Chlamydia Screen (<24 yr or high risk): Screening not indicated: no risk factors. Eye care: Counseled. Dental care: Counseled , no dental care, referred to [facility] dental [facility] Hearing: patient does not have concerns. Lipid screen: not indicated: recently screened, not due. Favorable 2011 Counseled. DM screen: not indicated: recently screened, not due. Counseled. HTN screen: BP is normal today. Counseled. Depression symptoms: as above EtOH use: reports that she does not [...] IM 09/25/2009 ? ? Influenza Vaccine =>3yo Split IM 08/11/2010, 10/01/2011 ? ? Influenza Vaccine =>3yo Split Preservative Free IM 06/24/2012, 06/29/2013 ? ? Pneumococcal Polysaccharide Vaccine (PPSV23) =>2YO SQ/IM 08/10/2006 ??? Td 04/01/2000 ? ? Tdap Vaccine =>7YO IM 04/21/2010 Plan: Liset was seen today for annual exam and medications refill. Diagnoses and associated orders for this visit: Routine general medical examination at a health care facility Chronic back pain Cervicalgia F/U pain clinic Chronic knee pain F/U Ortho Chronic obstructive pulmonary disease Asthma Improved F/U Pulmonary Insomnia Stable Depression Stable Hesitancy F/u per Urology Other Orders - HYDROcodone-acetaminophen (NORCO) 5-325 mg tablet; Take 1-2 Tabs by mouth every 6 hours as neededfor 28 days for Pain. Patient Education Topic: as above Method: Verbal Taught to: Patient Barriers: None Outcomes: Verbalized understanding Will address disability at next visit F/U scheduled 03/30 References: USPTF Level A & B Recommendations List USPTF Adult Recommendations USPTF Breast Cancer Screening USPTF Cervical Cancer Screening USPTF Colorectal Cancer Screening CDC Adult Immunizations 2011 CDC 7-18 Years Immunizations 2011 AAFP Clinical Recommendations documented in this encounter H&P Notes * ANIMAL CARE ASSISTANT, SCAN 2 - 03/02/2014 1546 EDT documented in this encounter Miscellaneous Notes * Assessment & Plan Note - Jean Munoz MD - 03/02/2014 1515 EDT Associated Problem(s): Hesitancy Still a problem, needs F/U Urology, will call for F/U * Assessment & Plan Note - Jean Munoz MD - 03/02/2014 1513 EDT Associated Problem(s): Chronic pain syndrome Overall 02/20, most back pain worse than knee * Assessment & Plan Note - Jean Munoz MD - 03/02/2014 1512 EDT Associated Problem(s): Migraine Pretty good lately per patient * Assessment & Plan Note - Jean Munoz MD - 03/02/2014 1512 EDT Associated Problem(s): Gastroesophageal reflux disease Doing well * Assessment & Plan Note - Jean Munoz MD - 03/02/2014 1512 EDT Associated Problem(s): Major depressive disorder, recurrent, severe without psychotic features (HCC-CMS) Variable per patient Has seen couselor (Piter Jackson) Zoloft 200 mg daily x3-4 years, has helped, no side effects No other med now, has been on Wellbutrin (ineffective), Depakote (for migraines?), citalopram (ineffective) * Assessment & Plan Note - Jean Munoz MD - 03/02/2014 1505 EDT Associated Problem(s): Panlobular emphysema (HCC-CMS) Recent hospital stay, see DC summary, not on O2 * Assessment & Plan Note - Jean Munoz MD - 03/02/2014 1503 EDT Associated Problem(s): Chronic knee pain F/U Dr Glynn pending * Assessment & Plan Note - Jean Munoz MD - 03/02/2014 1502 EDT Associated Problem(s): Insomnia Variable, Ambien 3-4x/week Not on trazodone, mirtazapine * Assessment & Plan Note - Jean Munoz MD - 03/02/2014 1501 EDT Associated Problem(s): Asthma (Resolved 03/03/2017) Better this week No recent wheezing Meds Advair, Spiriva, Xopenex Singulair, neb prn (not since discharge) * Assessment & Plan Note - Jean Munoz MD - 03/02/2014 1459 EDT Associated Problem(s): Cervicalgia Has been stiff this week No change overal Recent hospitalization * Assessment & Plan Note - Jean Munoz MD - 03/02/2014 1458 EDT Associated Problem(s): Chronic back pain No recent F/U Pain Clinic, has reschduled documented in this encounter Plan of Treatment Upcoming Encounters Date Type Department Care Team (Late st Contact Info) Description 06/29/2024 14:15 EDT Office Visit [address] [address] Jean Munoz MD [address] [place] [phone] documented as of this encounter Visit Diagnoses Diagnosis Routine general medical examination at a health care facility- Primary Chronic back pain Backache, unspecified Cervicalgia Chronic knee pain Pain in joint, lower leg Chronic obstructive pulmonary disease (HCC-CMS) Chronic airway obstruction, not elsewhere classified Asthma Unspecified asthma Insomnia Insomnia, unspecified Depression Depressive disorder, not elsewhere classified Hesitancy Urinary hesitancy Screening for osteoporosis- Primary [...] Da te HYDROcodone-acetaminophe n (NORCO) 5-325 mg tablet Take 1-2 Tabs by mouth every 6 hours as needed for 28 days for Pain. Reorder 01/10/2014 03/02/2014 documented as of this encounter Care Teams Tool Repairer Bench Relationship Specialty Start Date End Date Jean Munoz MD [address] [place] [address] PCP - General 12/31/08 Manny Rizzo MD [address] [place] [address] 04/20/10 documented as of this encounter
--- OUTSIDE RECORDS SUMMARY | 2024-06-10 07:26 | XMS_ITS | Encounter Summary ---
Author Organization [facility] Address [address] [place] [address] Care Team Providers Care Supervisor Painting Name Role Phone Jean Munoz MD Primary Care Provider Manny Rizzo MD Unavailable Reason for Visit * Reason Comments Chronic Obstructive Pulmonary Disease * Consult (3 - 10 Business Days) - Specialty Report Received Specialty Diagnoses / Procedures [facility]erred To Contact Pulmonary Disease Diagnoses COPD exacerbation ([facility]) Hypoxia ILD (interstitial lung disease) ([facility]) Esha Hahn MD [facility] [address] [place] [address] [place] [address] Pulmonology [address] [place] [address] Referral ID Status Reason Start Date Expiration Date Visits Requested Visits Authorized [id number] Specialty Report Received Specialty Services Required 02/15/2014 1 1 Encounter Details Date Type Department Care Team (Late st Contact Info) Description 03/07/2014 9:30 EDT Office Visit [facility] Pulmonology & Critical Care - Main [place] [address] [place] [address] Jeanette Virk MD [address] [place] [address], [address] [place] [address] COPD (chronic obstructive pulmonary disease) ([facility]) ([facility]) (Primary Dx); Asthma; Shortness of breath Social History Tobacco Use Types Packs/Day Years [...] Sign Reading Time Taken Comments Blood Pressure 104/66 03/07/2014 0911 EDT Pulse 80 03/07/2014 0911 EDT Temperature 35.7 ??C (96.2 ??F) 03/07/2014 0911 EDT Respiratory Rate 14 03/07/2014 0911 EDT Oxygen Saturation 97% 03/07/2014 0911 EDT Inhaled Oxygen Concentration - - Weight 87.1 kg (192 lb) 03/07/2014 0911 EDT Height 162.5 cm (5' 3.98) 03/07/2014 0911 EDT Body Mass Index 32.98 03/07/2014 0911 EDT documented in this encounter Functional Status [...] as of this encounter Discharge Diagnoses Diagnosis 496. CHRONIC AIRWAY OBSTRUCTION NEC[ICD-9-CM] 493.90 ASTHMA, UNSPECIFIED[ICD-9-CM] 786.05 SHORTNESS OF BREATH[ICD-9-CM] documented in this encounter Progress Notes * Jailene Martinez - 03/07/2014 0924 EDT Testing was performed and recorded in [employer]. See complete report in scanned documents. * Jeanette Virk MD - 03/07/2014 0858 EDT DIVISION OF PULMONOLOGY? PROGRESS/FOLLOWUP NOTE -03/07/2014 ?? Jean Munoz MD [address] [place] [id number] REASON FOR VISIT: Encounter Diagnoses Name Primary? COPD (chronic obstructive pulmonary disease) Yes ??? Asthma ??? Shortness of breath INTERVAL HISTORY: Liset Viera was seen in pulmonary clinic today for evaluation of the above medical problems. Since her last visit, she had a hospital admission at the beginning of February. At that time, she had a CT scan of the chest that showed extensive emphysema, as well as ground glass opacities. She was treated for COPD exacerbation, but also diuresed with significant improvement. At this point she reportsshe is doing relatively well from a pulmonary standpoint. She has had a lot of problems with allergies which is affecting her breathing sounds. She is taking Singulair, Jesusita, Nasonex and is using saline rinses as well. She continues to use her Advair as prescribed, and only uses rescue inhaler once or twice a week onmost weeks. She also continues on the roflumilast which seems to be the medication that has had thebiggest impact for her in terms of dyspnea. A 12 point review of systems was obtained. In addition to what is noted above is positive for ringing in ears, headaches, depression, difficulty sleeping, chronic back and neck pain. The remainder isnegative. The past medical, social and family history were reviewed and updated in the chart. Medications: has a current medication list which includes the following prescription(s): baclofen, cyclosporine, docusate sodium, doxycycline, fexofenadine, fluticasone-salmeterol, hydrocodone-acetaminophen, hydrocodone- acetaminophen, hydroxypropyl methylcellulose, ipratropium-albuterol, levalbutero l, methylphenidate, methylphenidate, mometasone, montelukast, nortriptyline, omeprazole, ondansetron, prednisone, pregabalin, ropinirole, sertraline, sumatriptan, tamsulosin, tiotropium, and zolpidem. Objective:?? PHYSICAL EXAMINATION: A well-nourished femalein no respiratory distress. Vital signs: BP 104/66 Pulse 80 Temp(Src) 35.7 ??C (96.2 ??F) (Tympanic) Resp 14 Ht 162.5 cm (63.98) Wt 87.091 kg (192 lb) BMI 32.98 kg/m2 SpO2 97% LMP 01/11/1987 HEENT exam: Normocephalic, atraumatic. Pupils are equally round and reactive to light. Neck is supple without adenopathy or thyromegaly. The pharynx is clear, without evidence of thrush. Nares without erythema or mucous. Lungs exam: clear to ausculation with a prolonged expiratory phase. No crackles or wheeze Cardiovascular exam: Regular rate and rhythm without murmurs, rubs, or gallops. Abdomen exam: Obese, soft, non-tender. Extremities exam: No clubbing or edema. Neuro: Alert and oriented x 4 , normal mood and affect, moves all extremities well. Data:?? Pulmonary function studies: Pulmonary function studies, ordered and reviewed by me, show: FVC of 2.17 liters, 63% of predicted FEV1 of 1.75 liters, 65 % of predicted FEV1/FVC ratio 101% This consistent with weakness, restriction, or poor effort, but is stable from previous testing in 2013. Imaging: CT scan of the chest 02/12/14, personally reviewed by me today, with severe emphysema, ground glass, and no PE. Follow up chest x-ray showed significant improvement in ground glass. Impression and Plan:?? In summary, this is a 53-year-old woman seen in followup for asthma and COPD. She is doing well after her recent hospitalization, during which she was treated for a COPD exacerbation but also diuresed with resolution of x-ray abnormalities. At this point, she is on an appropriate regimen for her allergies, and her COPD with reactive airway features. We discussed that avoidin g triggers in terms of asthma is very important, as well as ongoing smoking abstinence. Given that fact that she is on an optimized regimen and doing well at this time, I have not scheduled any further follow up but would be happy to see her back as needed. Jeanette Virk MD Pulmonary Attending ? cc: ?Jean Munoz MD Please note: this documentation was created with the use of voice recognition software, and may contain rare toll test desk worker errors. documented in this encounter Plan of Treatment Upcoming Encounters Date Type Department Care Team (Late st Contact Info) Description 06/29/2024 14:15 EDT Office Visit [facility] [address] [place] [address] Jean Munoz MD [address] [place] [phone] documented as of this encounter Procedures Procedure Name Priority Date/Time Associated Diagnosis Comments PULMONARY FUNCTION REPORT - SCANNED 03/21/2014 7:34 EDT PULMONARY FUNCTION REPORT - SCANNED 03/07/2014 9:38 EDT documented in this encounter Results * PULMONARY FUNCTION REPORT - SCANNED (03/21/2014 7:34 EDT) 03/21/2014 7:34 EDT Scan 2 Roller Man PROCEDURE/MINOR GURU GICAL ORDERABLES * PULMONARY FUNCTION REPORT - SCANNED (03/07/2014 9:38 EDT) 03/07/2014 9:38 EDT Scan 2 Roller Man PROCEDURE/MINOR GURU GICAL ORDERABLES documented in this encounter Visit Diagnoses Diagnosis COPD (chronic obstructive pulmonary disease) ([facility])- Primary Chronic airway obstruction, not elsewhere classified Asthma Unspecified asthma Shortness of breath Screening for osteoporosis- Primary Special screening for osteoporosis Primary narcolepsy without cataplexy Chronic pain syndrome Chronic low back pain Lumbago Chronic use of opiate for therapeutic purpose Pain medication agreement Encounter for long-term (current) use of other medications Screen for colon cancer Special screening for malignant neoplasms, colon documented in this encounter Care Teams Supervisor Painting Relationship Specialty Start Date End Date Jean Munoz MD [address] [place] [address] PCP - General 12/31/08 Manny Rizzo MD [address] [place] [phone] 04/20/10 documented as of this encounter
--- OUTSIDE RECORDS SUMMARY | 2024-06-10 07:26 | XMS_ITS | Encounter Summary ---
Author Organization [facility] Address [address] [place] [address] Care Team Providers Care E Commerce Marketing Analyst Name Role Phone Jean Munoz MD Primary Care Provider Manny Rizzo MD Unavailable Reason for Visit * Reason Onset Date Comments Medications Refill 02/15/2014 Encounter Details Date Type Department Care Team (Late st Contact Info) Description 02/15/[address] [facility] Sleep Program [address] [address] Tiana Bacon [address] [place] [address] Medications Refill Social History Tobacco [...] Telephone Encounter - Corrina Ac RN - 02/15/2014 1149 EDT Reminded pt that we spoke with last week, her prescriptions are ready. Pt did not remember and states she is currently in the hospital with a breathing problem but hopes to be discharged on Wednesday. * Telephone Encounter - Duy Booth - 02/15/2014 1144 EDT Calling to request refills of Ritalin to be picked up on Wednesday. Please call when ready. documented in this encounter Plan of Treatment Upcoming Encounters Date Type Department Care Team (Late st Contact Info) Description 06/29/2024 14:15 EDT Office Visit [facility] [address] [place], [place] [phone] Jean Munoz MD [address] [place] [address] documented as of this encounter Visit Diagnoses Not on filedocumented in this encounter Care Teams E Commerce Marketing Analyst Relationship Specialty Start Date End Date Jena Munoz MD [address] [place] [address] PCP - General 12/31/08 Manny Rizzo MD [address] [place] [phone] 04/20/10 documented as of this encounter
--- OUTSIDE RECORDS SUMMARY | 2024-06-10 07:26 | XMS_ITS | Encounter Summary ---
Author Organization [facility] Address [address] [place] [address] Care Team Providers Care Storeroom Attendant Name Role Phone Jean Munoz MD Primary Care Provider Manny Rizzo MD Unavailable Reason for Referral * Consult (Routine) - Specialty Report Received Specialty Diagnoses / Procedures [facility] Referred To Contact Orthopedic Surgery Diagnoses Left knee pain Jean Munoz MD [address] [place] [phone] [facility] [place] [address] Referral ID Status Reason Start Date Expiration Date Visits Requested Visits Authorized [id number] Specialty Report Received Specialty Services Required 01/16/2014 1 1 Question Answer Reason for Request: left knee pain Reason for Visit * Reason Onset Date Comments Referral Request 01/16/2014 Encounter Details Date Type Department Care Team (Late st Contact Info) Description 01/16/2014 Telephone [facility] [address] [place] [address] Jean Munoz MD [address] [place] [address] Referral Request Social History Tobacco Use Types Packs/Day Years [...] encounter Miscellaneous Notes * Telephone Encounter - Catia Wick - 01/16/2014 1526 EDT Done. * Telephone Encounter - Rukhsana Molina - 01/16/2014 1514 EDT The orthopedics dept called because they need a new referral for the patient for orthopedics for left knee pain. The previous referral is expiring because it is a year old. Pended referral for signature if appropriate. documented in this encounter Plan of Treatment Upcoming Encounters Date Type Department Care Team (Late st Contact Info) Description 06/29/2024 14:15 EDT Office Visit [facility] [address] [place] [address] Jean Munoz MD [address] [place] [address] Scheduled Referrals Name Type Priority Associated Diagnoses Order Schedule AMB CONS/FOLLOW UP ORTHOPEDICS Outpatient Referral Routine Left knee pain Ordered: 01/16/2014 documented as of this encounter Visit Diagnoses [...] colon documented in this encounter Care Teams Storeroom Attendant Relationship Specialty Start Date End Date Jean Munoz MD [address] [place] [phone] PCP - General 12/31/08 Manny Rizzo MD [address] [place] [phone] 04/20/10 documented as of this encounter
--- OUTSIDE RECORDS SUMMARY | 2024-06-10 07:26 | XMS_ITS | Encounter Summary ---
Author Organization [facility] Address [address] [place] [address] Care Team Providers Care Computer System Technician Name Role Phone Jean Munoz MD Primary Care Provider Manny Rizzo MD Unavailable Reason for Visit * Reason Onset Date Comments Prior Auth, Medication 12/18/2013 Encounter Details Date Type Department Care Team (Late st Contact Info) Description 12/18/2013 Telephone [facility] [address] [place] [address] Jean Munoz MD [address] [place] [phone] Prior Auth, Medication Social History [...] * Telephone Encounter - Kavita Mann - 12/18/2013 1643 EDT Medication: xopenex inhaler Insurance Co: Medicaid Approval # (if applicable): Approval dates: one year from today Name of Pharmacy notified: [facility] documented in this encounter Plan of Treatment Upcoming Encounters Date Type Department Care Team (Late st Contact Info) Description 06/29/2024 14:15 EDT Office Visit [facility] [address] [place] [address] Jean Munoz MD [address] [place] [phone] documented as of this encounter Visit Diagnoses Not on filedocumented in this encounter Care Teams Computer System Technician Relationship Specialty Start Date End Date Jean Munoz MD [address] [place] [phone] PCP - General 12/31/08 Manny Rizzo MD [address] [place] [phone] 04/20/10 documented as of this encounter
--- OUTSIDE RECORDS SUMMARY | 2024-06-10 07:26 | XMS_ITS | Encounter Summary ---
Author Organization [facility] Address [address] [place] [address] Care Team Providers Care Coffee Blender Name Role Phone Jean Munoz MD Primary Care Provider Manny Rizzo MD Unavailable Reason for Visit * Reason Comments Community Health Team Encounter Details Date Type Department Care Team (Late st Contact Info) Description 02/06/2014 Community Health Team [facility] [address], [address] [place], [place] [phone] Odilia Milan, RD [address] [place] [address] Social History Tobacco Use Types [...] Yes 02/26/2013 documented as of this encounter Progress Notes * Alicia Nicholas - 02/06/2014 1443 EDT Patient is scheduled for follow up with Odilia Milan RD on March 13 at 11am at [facility] documented in this encounter Plan of Treatment Upcoming Encounters Date Type Department Care Team (Late st Contact Info) Description 06/29/2024 14:15 EDT Office Visit [facility] [address] [place], [place] [phone] Jean Munoz MD [address] [place] [phone] documented as of this encounter Visit Diagnoses Not on filedocumented in this encounter Care Teams Coffee Blender Relationship Specialty Start Date End Date Jean Munoz MD [address] [place] [phone] PCP - General 12/31/08 Manny Rizzo MD [address] [place] [phone] 04/20/10 documented as of this encounter
--- OUTSIDE RECORDS SUMMARY | 2024-06-10 07:26 | XMS_ITS | Encounter Summary ---
Author Organization [facility] Address [address] [place] [address] Care Team Providers Care Packing Supervisor Name Role Phone Jean Munoz MD Primary Care Provider Manny Rizzo MD Unavailable Encounter Details Date Type Department Care Team (Late st Contact Info) Description 01/02/[address] [facility] [address] [phone] Odilia Milan, RD [address] [place] [address] Social History Tobacco Use Types [...] Progress Notes * Odilia Milan RD - 01/02/2014 0924 EDT Nutrition follow up (2) completed 01/01/14 Original referral for IBS. Liset has been following a modified low fodmaps diet. Pt has eliminated milk and ice cream and states that she experienced an improvement in symptoms once these foods were eliminated from her diet. Ptstates that her bowel movements have become more regular and she is experiencing less diarrhea. Pt plans to try milk to see if symptoms return and next elimination will be gluten. Provided pt with nutrition education on eliminating gluten from diet. Discussed process of reintroduction of foods with the fodmaps diet. Encouraged pt to continue using probiotics. Discussed the benefit of food and symptom logs while following a low fodmaps diet. Goals: 1. Reintroduce dairy monitoring symptoms after reintroduction 2. Consider logging food and symptoms 3. Elimination of gluten following dairy test. Time spent with pt: 60 minutes Referrals: n/a Follow-up: 01/29/14 @ [facility] @ 11am [facility] Status: Active with [facility] UMAIR Milan RD, CD Clinical Dietitian, [facility] documented in this encounter Plan of Treatment Upcoming Encounters Date Type Department Care Team (Late st Contact Info) Description 06/29/2024 14:15 EDT Office Visit [facility] [place] [address] [place] [address] Jean Munoz MD [address] [place] [phone] documented as of this encounter Visit Diagnoses Not on filedocumented in this encounter Care Teams Packing Supervisor Relationship Specialty Start Date End Date Jean Munoz MD [address] [place] [phone] PCP - General 12/31/08 Manny Rizzo MD [address] [place] [phone] 04/20/10 documented as of this encounter
--- OUTSIDE RECORDS SUMMARY | 2024-06-10 07:26 | XMS_ITS | Encounter Summary ---
Author Organization [facility] Address [address] [place] [address] Care Team Providers Care Loop Sewer Name Role Phone Jean Munoz MD Primary Care Provider Manny Rizzo MD Unavailable Reason for Visit * Reason Onset Date Comments Medications Refill 12/11/2013 Encounter Details Date Type Department Care Team (Late st Contact Info) Description 12/11/2013 Refill [facility] [address] [place], [place] [phone] Jean Munoz MD [address] [place] [phone] Medications Refill Social History Tobacco [...] encounter Miscellaneous Notes * Telephone Encounter - Madelaine Nava - 12/11/2013 1711 EDT Medication(s) Requested: Montelukast, Sertraline, Xopenex HFA Pharmacy: [facility] Last Refill Date: 04/10/2013, 04/10/2013, ? UNKNOWN Last Visit Date: 10/10/2013 Next Visit Date: 12/12/2013 Is patient out of medication? unknown Madelaine Nava 12/11/2013 17:11 documented in this encounter Plan of Treatment Upcoming Encounters Date Type Department Care Team (Late st Contact Info) Description 06/29/2024 14:15 EDT Office Visit [facility] [address] [place] [address] Jean Munoz MD [address] [place] [phone] documented as of this encounter Visit Diagnoses Diagnosis Depression- Primary Depressive disorder, not elsewhere classified Asthma Unspecified asthma Screening for osteoporosis- Primary Special screening for osteoporosis Primary narcolepsy without cataplexy Chronic pain syndrome Chronic low back pain Lumbago Chronic use of opiate for therapeutic purpose Pain medication agreement Encounter for long-term (current) use of other medications Screen for colon cancer Special screening for malignant neoplasms, colon documented in this encounter Care Teams Loop Sewer Relationship Specialty Start Date End Date Jean Munoz MD [address] [place] [phone] PCP - General 12/31/08 Manny Rizzo MD [address] [place] [address] 04/20/10 documented as of this encounter
--- OUTSIDE RECORDS SUMMARY | 2024-06-10 07:26 | XMS_ITS | Encounter Summary ---
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 Name Role Phone Moi Muonz MD Primary Care Provider Manny Rizzo MD Unavailable Reason for Referral * Consult (48 Hrs (Urgent)) - Closed Specialty Diagnoses / Procedures Referred By Contac t Referred To Contact Diagnoses Hypoxia COPD exacerbation ([facility]) ILD (interstitial lung disease) ([facility]) Esha Hahn MD MPH [address] [place] [phone] Referral ID Status Reason Start Date Expiration Date V isits Requested Visits Authorized [id number] Closed Specialty Services Required 02/16/2014 1 1 Question Answer Mcfp Referral - Disease Mgmt and Education about: COPD Physical therapy is needed for: Evaluation, Safety - pt with COPD, requiring walker * Consult (3 - 10 Business Days) - Specialty Report Received Specialty Diagnoses / Procedures Referred By Contac t Referred To Contact Pulmonary Disease Diagnoses COPD exacerbation ([facility]) Hypoxia ILD (interstitial lung disease) ([facility]) Esha Hahn MD MPH [address] [place] [address] [address] [place] [phone] [facility] Pulmonology [address] [place] [address] Referral ID Status Reason Start Date Expiration Date Visits Requested Visits Authorized [id number] Specialty Report Received Specialty Services Required 02/15/2014 1 1 Question Answer Reason for Request: admitted with hypoxia of unclear etiology (COPD, ?ILD, pulm edema) Reason for Visit * Reason Comments Shortness of Breath Pt arrives via [facility] w ith c/o SOB that has increased over the past few days. Pt arrives with O2 sat on RA 78%. Pt placed on 4L NC. No audible wheezing noted.RT and Dr. Min at bedside. Encounter Details Date Type Department Care Team (Late st Contact Info) Description 02/12/2014 17:30 EDT - 02/16/2014 14:14 EDT Hospital Encounter [facility] General Medicine Unit [address] [place] [address] Moi Min MD [address] [phone] Dave Singer MD [address] [phone] Cade Alvarez MD [address] [place], [place] [address] Vincent Peck MD [address] [place] [phone] Herminia Wetzel MD [address] [place] [phone] Hypoxia (Primary Dx); COPD exacerbation ([facility]) ([facility]); ILD (interstitial lung disease) ([facility]); Asthma; COPD (chronic obstructive pulmonary disease) ([facility]) ([facility]) Discharge Disposition: Home or Self Care Social [...] Sign Reading Time Taken Comments Blood Pressure 91/52 02/16/2014 1025 EDT Pulse 84 02/16/2014 1025 EDT Temperature 36 ??C (96.8 ??F) 02/16/2014 1025 EDT Respiratory Rate 20 02/16/2014 1232 EDT Oxygen Saturation 94% 02/16/2014 1232 EDT Inhaled Oxygen Concentration - - Weight 87.2 kg (192 lb 3.2 oz) 02/16/2014 0410 E DT Height 162.6 cm (5' 4) 02/12/2014 1128 EDT Body Mass Index 32.99 02/12/2014 1128 EDT documented in this encounter Functional Status [...] 02/15/2014 documented as of this encounter Discharge Summaries * Herminia Wetzel MD - 02/16/2014 1317 EDT [facility] Service Hospital Discharge Summary Chief Complaint / Admitting Diagnosis: Dyspnea Principal Problem / Final Diagnosis: COPD exacerbation Secondary Diagnosis: Acute hypoxic respiratory failure Principal Procedure: None Condition at Discharge: Improved Assessment at Discharge: Vital signs: Patient Vitals for the past 12 hrs: BP Pulse Resp Temp SpO2 O2 Device 02/16/14 1025 91/52 mmHg 84 18 36 ??C (96.8 ??F) 95 % Room air Hospital Course Maria Del Rosario Meadows is a 53 y.o. female with a history of COPD, severe emphysema, asthma, smoking (60 pack years, quit 1 year ago) and GERD who presented on 02/12 with 7 days of increased dyspnea, coughing, and home measured desaturation to the 70's. She improved in the ED on oxygen, nebs, and methylprednisolone, and pulmonology was consulted. She was admitted to the [facility] Medicine Service and treatedwith diuresis, azithromycin, methylprednisolone, tiotropium, Advair, albuterol, and DuoNebs. An ECHO was within normal limits. Chest CT showed b/l ground glass opacities of unclear etiology and severe emphysema, concerning for pulmonary edema, ILD, or hypersensitivity pneumonitis. She improved slightly over the next few days, sating from 89 to 95 on 4-5 L, and on HD#3 improved dramatically, weaning off oxygen and switching to PO prednisone. CXR on HD#4 after diuresis to net negative 1.5L that showed interval improvement, with further outpatient follow up planned to evaluate possible underlying process. Home O2 eval determined no need for home oxygen. She was discharged to home with VNA in good/improved condition to follow up with PCP's office within 1 week and with pulmonology in 3-4 weeks. Disposition Data Medication Information baclofen (LIORESAL) 10 mg tablet Take 1 Tab by mouth 3 times daily as needed (mucles tightness). cycloSPORINE (RESTASIS) 0.05 % ophthalmic emulsion Place 1 Drop into both eyes 2 times daily. docusate sodium (COLACE) 100 mg capsule Take 1 Cap by mouth 2 times daily as needed for Constipation. doxycycline (VIBRA-TABS) 100 mg tablet Take 1 Tab by mouth daily. fexofenadine (JUDITH) 180 mg tablet Take 1 Tab by mouth daily. fluticasone-salmeterol (ADVAIR HFA) 230-21 mcg/actuation inhaler Inhale 2 Puffs as directed 2 times daily. HYDROcodone-acetaminophen (NORCO) 5-325 mg tablet Take 1-2 Tabs by mouth every 6 hours as needed for 28 days for Pain. HYDROcodone-acetaminophen (NORCO) 5-325 mg tablet Take 1-2 Tabs by mouth every 6 hours as needed for 28 days for Pain. hydroxypropyl methylcellulose (ISOPTO TEARS) 0.5 % ophthalmic solution Place 1 Drop into both eyes 5 times daily. ipratropium-albuterol (DUONEB) 0.5 mg-3 mg(2.5 mg base)/3 mL nebulizer solution Take 3 mL by nebulization every 4 hours as needed for Wheezing. levalbuterol (XOPENEX HFA) 45 mcg/actuation inhaler Take 2 puffs by mouth as needed for shortness of breath. methylphenidate (RITALIN;METHYLIN) 10 mg tablet Take one tab in the afternoon for narcolepsy. Earliest Fill Date: 02/13/14 methylphenidate (RITALIN;METHYLIN) 20 mg tablet Take 2 Tabs by mouth daily. Earliest Fill Date: 02/13/14 mometasone (NASONEX) 50 mcg/actuation nasal spray 2 Sprays by nasal route daily. montelukast (SINGULAIR) 10 mg tablet Take 1 Tab by mouth daily. nortriptyline (PAMELOR) 75 mg capsule Take 1 Cap by mouth daily. omeprazole (PRILOSEC) 40 mg capsule Take 1 Cap by mouth daily. ondansetron (ZOFRAN) 4 mg tablet Take 1 Tab by mouth daily as needed for Nausea. predniSONE (DELTASONE) 10 mg tablet 40 mg (4 pills) x3d, 30 mg (3 pills) x3d, 20 mg (2 pills) x3d, 10 mg (1 pill) x3d, 5 mg (1/2 pill) x2d.. pregabalin (LYRICA) 150 mg capsule Take 1 Cap by mouth 3 times daily. rOPINIRole (REQUIP) 2 mg tablet Take 1 Tab by mouth at bedtime. sertraline (ZOLOFT) 100 mg tablet Take 2 Tabs by mouth daily. sumatriptan (IMITREX) 50 mg tablet Take 1 Tab by mouth once as needed for 1 dose for Migraine. tamsulosin (FLOMAX) 0.4 mg capsule Take one capsule by mouth every day (take it half an hour after supper) tiotropium (SPIRIVA WITH HANDIHALER) 18 mcg inhalation capsule Inhale 1 Cap as directed daily. zolpidem (AMBIEN) 5 mg tablet Take 1 Tab by mouth at bedtime as needed for Sleep. Relevant Studies at Discharge: CXR 02/16/2014: Two views of the chest show stable fixation hardware in the lower cervical spine. Thebones and soft tissues are unremarkable. There are surgical clips at the gastroesophageal junction.The cardiac and mediastinal contours are unremarkable. Since the prior examination, there has been interval improvement in the opacities throughout the lungs, with residual reticular opacities and mohsen e coalescent opacities in the basilar portion of the lungs. The improvement in this duration of time suggests improvement in hydrostatic edema, although improved pneumonia is also a possibility. No pleural abnormalities are visible. Last Lab Results at Discharge: CBC: Lab Results Component Value Date WBC 11.21 02/16/2014 RBC 4.39 02/16/2014 HGB 13.5 02/16/2014 HCT 39.6 02/16/2014 MCV 90 02/16/2014 MCH 30.8 02/16/2014 MCHC 34.1 02/16/2014 PLT 373* 02/16/2014 DIFFTYPE Automated 02/16/2014 Electrolytes: Lab Results Component Value Date NA 138 02/16/2014 K 3.5 02/16/2014 CL 96 02/16/2014 CO2 29 02/16/2014 CC: Moi Munoz MD Hospital Discharge Summary completed by Esha Hahn MD 02/16/2014 13:17. Attestation: I saw and evaluated the patient for discharge. I agree with the resident's/fellow's note. I personally spent 20 minutes in discharging services for this patient. Adjustments are noted with strikeout and green font as necessary. The patient expresses understanding that smoke exposure (tobacco and nicotine, direct and second-hand) is absolutely contributing to her lung disease. She has told her friends and family that there will be no more smoking in the home, or in her vicinity when she is outside. Her marriage has been nohemy in the past but she feels they are doing well right now. Feels safe at home. Plan follow up with Moi Munoz MD. Our nursing staff will contact him to schedule. Future Appointments Date Time Provider Department Center 02/20/2014 13:45 Ho Holt DO [facility] None 03/02/2014 14:30 Moi Munoz MD Family Pract None 03/05/2014 13:30 Bear Glynn MD [facility] None 03/07/2014 9:15 In-House, [facility] O[facility] Pulm None 03/07/2014 9:30 Jeanette Virk MD [facility] Pulm None 03/13/2014 11:00 [facility], Team Family Pract None Herminia Wetzel MD 02/16/2014 14:30 documented in this encounter Discharge Instructions * Medications* Esha Hahn MD - 02/16/2014 13:01 EDT Prednisone taper: prednisone 40 mg (4 pills) each day for 3 days, then 30 mg (3 pills) each day for3 days, then 20 mg (2 pills) each day for 3 days, then 10 mg (1 pill) each day for 3 days, then 5 mg (1/2 pill) each day for 2 days, then stop. documented in this encounter Medications at Time [...] times daily. 2 Tray 11 10/24/2013 04/13/2016 doxycycline (VIBRA-TABS) 100 mg tabletIndications:Rosac ea Take 1 Tab by mouth daily. 90 Tab 3 12/13/2013 01/15/2015 fexofenadine (JUDITH) 180 mg tabletIndications:Seaso nal allergic rhinitis Take 1 Tab by mouth daily. 90 Tab 3 12/13/2013 04/10/2015 fluticasone-salmeterol (ADVAIR HFA) 230-21 mcg/actuation inhalerIndications:Asth ma,COPD (chronic obstructive pulmonary disease) ([facility]) Inhale 2 Puffs as directed 2 times daily. 3 Inhaler 3 12/13/2013 02/12/2015 HYDROcodone-acetaminoph en (NORCO) 5-325 mg tablet Take 1-2 Tabs by mouth every 6 hours as needed for 28 days for Pain. 112 Tab 0 01/10/2014 03/02/2014 HYDROcodone-acetaminoph en (NORCO) 5-325 mg tablet Take 1-2 Tabs by mouth every 6 hours as needed for 28 days for Pain. 112 Tab 0 02/07/2014 03/30/2014 hydroxypropyl methylcellulose (ISOPTO TEARS) 0.5 % ophthalmic solution Place 1 Drop into both eyes 5 times daily. 12/10/2010 10/06/2023 ipratropium-albuterol (DUONEB) 0.5 mg-3 mg(2.5 mg base)/3 mL nebulizer solutionIndications:Ast hma,COPD (chronic obstructive pulmonary disease) ([facility]) Take 3 mL by nebulization every 4 hours as needed for Wheezing. 3 mL 3 02/16/2014 04/10/2015 levalbuterol (XOPENEX HFA) 45 mcg/actuation inhaler Take 2 puffs by mouth as needed for shortness of breath. 3 Inhaler 3 12/13/2013 10/16/2014 methylphenidate (RITALIN;METHYLIN) 10 mg tablet Take one tab in the afternoon for narcolepsy. Earliest Fill Date: 02/13/14 30 Tab 0 02/13/2014 03/12/2014 methylphenidate (RITALIN;METHYLIN) 20 mg tablet Take 2 Tabs by mouth daily. Earliest Fill Date: 02/13/14 60 Tab 0 02/13/2014 03/12/2014 mometasone (NASONEX) 50 mcg/actuation nasal sprayIndications:Season al [...] disease Take 1 Cap by mouth daily. 180 Cap 3 12/13/2013 03/30/2014 ondansetron (ZOFRAN) 4 mg tabletIndications:Gastr oesophageal reflux disease Take 1 Tab by mouth daily as needed for Nausea. 30 Tab 1 12/13/2013 04/10/2015 predniSONE (DELTASONE) 10 mg tablet 40 mg (4 pills) x3d, 30 mg (3 pills) x3d, 20 mg (2 pills) x3d, 10 mg (1 pill) x3d, 5 mg (1/2 pill) x2d.. 31 Tab 0 02/16/2014 06/25/2014 pregabalin (LYRICA) 150 mg capsuleIndications:Lime Vat Tender majo back pain Take 1 Cap by mouth 3 times daily. 270 Each 1 12/13/2013 03/30/2014 rOPINIRole (REQUIP) 2 mg tabletIndications:Restl ess legs syndrome Take 1 Tab by mouth at bedtime. 90 Tab 3 12/13/2013 01/15/2015 sertraline (ZOLOFT) 100 mg tabletIndications:Depre ssion Take 2 Tabs by mouth daily. 180 Tab 3 12/13/2013 02/04/2015 sumatriptan (IMITREX) 50 mg tabletIndications:Migra ine Take 1 Tab by mouth once as needed for 1 dose for Migraine. 9 Tab 1 12/13/2013 03/12/2014 tamsulosin (FLOMAX) 0.4 mg capsule Take one capsule by mouth every day (take it half an hour after supper) 90 Cap 1 08/14/2013 04/28/2015 tiotropium (SPIRIVA WITH HANDIHALER) 18 mcg inhalation capsuleIndications:COPD (chronic obstructive pulmonary disease) ([facility]) Inhale 1 Cap as directed daily. 90 Cap 3 12/13/2013 02/12/2015 zolpidem (AMBIEN) 5 mg tabletIndications:Insom yesi Take 1 Tab by mouth at bedtime as needed for Sleep. 30 Tab 5 12/13/2013 06/11/2014 documented as of this encounter Ordered Prescriptions Prescription Sig Dispensed Refills Start Date End Da te predniSONE (DELTASONE) 10 mg tablet 40 mg (4 pills) x3d, 30 mg (3 pills) x3d, 20 mg (2 pills) x3d, 10 mg (1 pill) x3d, 5 mg (1/2 pill) x2d.. 31 Tab 0 02/16/2014 06/25/2014 ipratropium-albuterol (DUONEB) 0.5 mg-3 mg(2.5 mg base)/3 mL nebulizer solutionIndications:Ast hma,COPD (chronic obstructive pulmonary disease) ([facility]) Take 3 mL by nebulization every 4 hours as needed for Wheezing. 3 mL 3 02/16/2014 04/10/2015 documented in this encounter Discharge Disposition Disposition Code Departure Means Destination Home or Self Care documented in this encounter Progress Notes * Riya Robertson, PT - 02/16/2014 3117 EDT Rehabilitation Therapies [facility] Physical Therapy Discontinue/Discharge Note Date of Service: 02/16/2014 Precautions: Ambulate SUBJECTIVE: na OBJECTIVE: Intervention Completed Today: No treatment rendered today due to: patient has been/will be discharged from hospital. Team Communication: na Patient has been seen in physical therapy since 02/14 for Therapeutic activities. In this reporting period 02/14 to 02/16 the patient has been seen by a physical therapist. Frequency: one time since evaluation. Intensity: 15-30 minutes per session. Duration: During this hospitalization. Please refer to the physical therapy notes for specifics on the patient's functional status and treatment sessions. Relevant objective findings: BALANCE, LOCOMOTION, AND GAIT: 02/15: ambulated 2 x 100 feet with rolling walker and close supervision with standing rest break between efforts SELF-CARE, HOME MANAGEMENT, WORK, AND LEISURE: From 02/15: pt performed sit <> stand transfers to/from EOB and wheelchair with supervision and cues for rolling walker placement and hand placement. ASSESSMENT: Physical therapy services in this setting have been discontinued secondary to: Patient has been or will be discharged from the hospital Physical Therapy Diagnosis: impaired functional mobility, impaired activity tolerance, impaired aerobic capacity and impaired muscle performance associated with COPD exacerbation, hypoxia. Physical Therapy Prognosis: patient is d/c to home today. She declines that need for further PT in this setting. Has been up in her room independently. She per the description above did not meet goals, however anticipate that given her subjective description of her status, that she is able to return to home with assist from her family and friends. No further PT recommended at this time. Short-Term Goals: NA Long-Term Goals: 7-10 days. Modified inedpendence for all transfers. Modified independence for gait with RW for > 50 feet with no LOB, < 5/10 RPE with least amount of FiO2. Up and down 1 steps with min contact assist without rail. Verbalize all PT recommendations. Independent with home ambulation/exercise program. PLAN: D/C Physical Therapy Recommended Discharge Destination: Home with family Recommended Discharge Services: No physical therapy follow-up services at this time Recommended Equipment Needs: Patient has all necessary equipment Other recommendations: No other consults recommended at this time Pager: [phone] RIYA ROBERTSON, PT 02/16/2014 15:52 * Felton Mcclure - 02/16/2014 0944 EDT Pulmonary Inpatient Follow-up Note Admit Date: 02/12/2014 Date of Service: 02/16/2014 Subjective: Patient continues to feel better since admission. Reports that her breathing feels at her usual baseline. She has been able to perform physical activity as per her baseline. 24 hour Events: - -1.5 L over the last 24 hours. Total of two 40 IV Lasix dose administered. PMH PSH Past Medical History Diagnosis Date ??? UTI [...] 03/01/2013 ??? COPD (chronic obstructive pulmonary disease) Past Surgical History Procedure Laterality Date ??? Salpingectomy 1982 ectopic ??? Hysterectomy, vaginal menorrhagia ??? Shoulder arthroscopy 10/15 left, with acromioplasty ??? Gastric fundoplication 03/02/07 [place] ??? Cervical spine surgery 12/31/08 discectomy, fusion C4-7 Dr Dewitt ??? Colonoscopy 07/29/09 repeat 10 years ??? Ankle fracture surgery 04/01/10 left ankle [facility] ??? Cyst incision and drainage 09/17/10 left cheek ??? Fine needle aspiration 09/19/10 left cheek ??? Cystoscopy 02/14/13 Social History Family History History Substance Use Topics ??? Smoking status: [...] Hx ??? Depression Brother ??? Depression Brother Medications Current Facility-Administered Medications Medication Route Frequency ??? acetaminophen (TYLENOL) tablet 650 mg oral Q6H PRN ??? albuterol (ACCUNEB) nebulizer solution 5 mg nebulization Q4H PRN ??? baclofen (LIORESAL) tablet 10 mg oral TID PRN ??? cycloSPORINE (RESTASIS) 0.05 % ophthalmic emulsion 1 Drop both eyes BID ??? dextrose 50 % solution 12.5 g intravenous PRN ??? docusate sodium (COLACE) capsule 100 mg oral BID PRN ??? doxycycline (VIBRA-TABS) tablet 100 mg oral DAILY ??? enoxaparin (LOVENOX) injection 40 mg subcutaneous DAILY ??? fexofenadine (JUDITH) 12 hr tablet 180 mg oral DAILY ??? glucagon (human recombinant) injection 1 mg intramuscular PRN ??? HYDROcodone-acetaminophen (NORCO) 5-325 mg tablet 1-2 Tab oral Q6H PRN ??? HYDROcodone-acetaminophen (NORCO) 5-325 mg tablet 1-2 Tab oral Q6H PRN ??? hydroxypropyl methylcellulose (ISOPTO TEARS) 0.5 % ophthalmic solution 1 Drop both eyes PRN ??? insulin aspart (NOVOLOG FLEXPEN) injection subcutaneous TID WC ??? ipratropium-albuterol (DUONEB) 0.5 mg-3 mg(2.5 mg base)/3 mL nebulizer solution 3 mL nebulization QID ??? mometasone (NASONEX) 50 mcg/actuation nasal spray 2 Clive nasal DAILY ??? mometasone-formoterol (DULERA) 200-5 mcg/actuation inhaler 2 Puff inhalation BID ??? montelukast (SINGULAIR) tablet 10 mg oral DAILY ??? nortriptyline (PAMELOR) capsule 75 mg oral DAILY ??? ondansetron (PF) (ZOFRAN) injection 4 mg intravenous Q4H PRN Or ??? ondansetron (ZOFRAN-ODT) disintegrating tablet 4 mg oral Q4H PRN ??? pantoprazole (PROTONIX) tablet 40 mg oral DAILY ??? predniSONE (DELTASONE) tablet 40 mg oral DAILY ??? pregabalin (LYRICA) capsule 150 mg oral TID ??? roflumilast tablet 500 mcg oral DAILY ??? rOPINIRole (REQUIP) tablet 2 mg oral QHS ??? sertraline (ZOLOFT) tablet 200 mg oral DAILY ??? tamsulosin (FLOMAX) capsule 0.4 mg oral DAILY ??? tiotropium (SPIRIVA) 18 mcg inhalation capsule 18 mcg inhalation DAILY ??? zolpidem (AMBIEN) tablet 5 mg oral AT BEDTIME PRN Allergies Allergies Allergen Reactions ??? Toradol (Ketorolac Tromethamine) Hives ??? Motrin (Ibuprofen) Itching Review of Systems: A 12 point review of system was performed and is negative aside from what is mentioned above, within the HPI. Objective/Physical Exam: VS: Patient Vitals for the past 8 hrs: BP Heart Rate Resp Temp SpO2 O2 Device FIO2 % 02/16/14 0815 - 85 BPM 20 - 94 % Room air 21 % 02/16/14 0416 - 75 BPM 20 - 95 % Room air - 02/16/14 0410 115/65 mmHg 76 BPM 20 35.4 ??C (95.7 ??F) 94 % Room air - 02/16/14 0227 121/76 mmHg 69 BPM 22 35.3 ??C (95.5 ??F) 92 % Room air - Exam: Gen: Alert and oriented x3 noted to be no acute distress Lung exam is significant for diffuse expiratory wheezing with evidence of scattered crackles on auscultation. Cardiovascular exam is significant for regular rate and rhythm without any evidence of murmurs, rubs, or gallops. Abdomen obese, soft, nontender, bowel sounds present. There was no evidenceof surgical scars. Extremities significant for +1 edema bilaterally, warm on exam with good pulses at the DT and PT. Neurological exam: The patient is alert and oriented x3, noted to be mildly anxious, moves all extremities. Patient is ambulating. Data Review: I have independently visualized the Labs: date CBC: Lab Results Component Value Date WBC 11.21 02/16/2014 RBC 4.39 02/16/2014 HGB 13.5 02/16/2014 HCT 39.6 02/16/2014 MCV 90 02/16/2014 MCH 30.8 02/16/2014 MCHC 34.1 02/16/2014 PLT 373* 02/16/2014 NEUTROABS 7.91 02/16/2014 SEDRATE 4 06/28/2008 BMP: Lab Results Component Value Date NA 138 02/16/2014 K 3.5 02/16/2014 CL 96 02/16/2014 CO2 29 02/16/2014 BUN 26 02/16/2014 CREATININE 0.60 02/16/2014 GLUCOSEFINGE 128* 02/16/2014 CALCIUM 8.3* 10/26/2012 MG 2.1 02/12/2014 PHOS 3.0 10/26/2012 LABALBU 3.9 07/21/2011 Coagulation: Lab Results Component Value Date PROTIME 12.5* 02/12/2014 INR 1.2* 02/12/2014 PTT 34 02/12/2014 Cardiac markers: Lab Results Component Value Date TROPONINI <0.034 02/12/2014 TROPONINI Marked hemolysis 02/12/2014 TROPONINI <0.034 04/05/2012 Other Studies: DATA: Pulmonary function test is significant for FVC of 2.23 liters, 64% predicted; FEV1 of 1.69 L,which is 62% predicted; FEV1 to FVC ratio of 96%, results of which are consistent with restriction,muscle weakness, or poor effort. Assessment and Plan 1. Hypoxic Respiratory Failure: multifactorial. Likely a combination of COPD exacerbation, pulmonary edema. Bilateral infiltrates noted on radiographic images unlikely chronic/subacute and may be secondary to undiagnosed ILD, or hypersensitivity pneumonitis. Her acute hypoxic respiratory failure has improved with IV Solu-Medrol and concomitant diuresis. 2. Bilateral Ground glass infiltrates bilaterally: recurrent. Prior radiographic images dating back to 2011 showed evidence of bilateral infiltrate. This may suggest a chronic and progressive process or a specific exposure that occurs during this time of the year, prompting a hypersensitivity type of reaction. Her history is concerning for ongoing marijuana use. I have counseled her the potential respiratoryeffects of continued exposure. History of marijuana can cause RP ILD. Repeat chest x-ray performed today reveals improvement in degree of bilateral infiltrates consistent with pulmonary edema. However underlying process reflects more reticular pattern which will require further workup as an outpatient. She may require BAL and or VATs biopsy as outpatient. 3. AECOPD Patient is symptomatically much improved and given the persistent evidence of wheezing on clinical exam, we would recommend transition to oral prednisone today with subsequent taper of 14 day period. Continue Spiriva daily; Advair 2 puffs twice daily, 115 mcg; albuterol q.4 p.r.n.; DuoNeb q.4 as needed.. Followup with Dr. Virk in 3-4 weeks. I have requested for this appointment, patient will be contacted with the time and date of her next appointment. Nathaniel Hillman MD I saw and examined the patient with the fellow / resident at the bedside. All the relevant imaging studies and laboratory tests were independently reviewed. I agree with the assessment and treatment plan as specified in the fellow / resident's note. Felton Mcclure MD Pulmonary, Critical Care and Sleep Medicine. * Esha Hahn MD - 02/16/2014 0713 EDT Family Medicine/Medicine Progress Note Admit Date: 02/12/2014 Hospital Day: LOS: 4 days Date of Service: 02/16/2014 Chief Complaint: dyspnea 24 hour events: -off O2 Subjective: Patient is sitting up in bed, playing games on her laptop. On room air. States that shefeels much better this AM. Mild sore throat. No fever or chills. Dyspnea on exertion. Discussed that she passed the 6-minute walk without O2 requirement. She would still like to have home O2, but we discussed that she would have to pay for that herself. Objective/Physical Exam: BP 91/52 Pulse 84 Temp(Src) 36 ??C (Tympanic) Resp 18 Ht 162.6 cm (64) SpO2 95% RA Exam: General appearance: alert, cooperative, no acute distress. Head: Normocephalic, atraumatic. Mouth: MMM, mild erythema of posterior oropharynx, without edema Lungs: inspiratory crackles with coarse expiratory breath sounds and wheezing - in all lung dalal Heart: RRR without murmur Mental Status: awake and alert; oriented to person, place, and time Data Review: I have independently visualized the, x-ray(s) and image(s) CXR: Since the prior examination, there has been interval improvement in the opacities throughout the lungs, with residual reticular opacities and some coalescent opacities in the basilar portion of the lungs. The improvement in this duration of time suggests improvement in hydrostatic edema, although improved pneumonia is also a possibility. No pleural abnormalities are visible. Labs: I have personally reviewed labs available in [facility]. Normal electrolytes, no leukocytosis, normal differential Assessment/Problems: Maria Del Rosario Meadows is a 53 y.o. female with history of severe COPD who presented with hypoxic respiratory failure and imaging showing with bilateral ground-glass abnormalities on CT. Etiology COPD exacerbation v pulmonary edema (heart failure unlikely per ECHO). Patient will follow up in pulmonology clinic for continued evaluation of lung function. Active Hospital Problem List: Acute on chronic respiratory failure due to COPD / emphysema. Doing well on room air. -Appreciate pulmonology recommendations. -Azithromycin 250mg qd x4 (last dose today) -Duo nebs Q4H -Albuterol nebs Q4H PRN -Solu-medrol 60 mg Q6H, will switch to prednisone 40 mg daily (14-day taper, per pulm) -Dulera 2 puff BID -Spiriva daily -Roflumilast 500mcg daily -Patient has been on doxycycline as an outpatient (indication: rosacea) Chronic pain. -Continue home regimen (lyrica, nortriptyline, hycrocodone-acetaminophen 5/325 q6h PRN, baclofen 10mg TID PRN) -Tylenol as written. Nutrition: regular diet DVT Prophylaxis: Lovenox Disposition: home today Code Status: FULL Consults: pulm Esha Hahn MD 02/16/2014 7:13 * Francesca Grimaldo, PT - 02/15/2014 1531 EDT Rehabilitation Therapies [facility] Physical Therapy Encounter Note Date of Service: 02/15/2014 SUBJECTIVE: I am breathing better. I haven't needed the oxygen at rest. I like the walker. I have balance trouble sometimes. OBJECTIVE: Intervention completed today: Time/Treatment Duration: 15: 00 x 20 minutes Vital signs were monitored and were stable throughout physical therapy session. RN had patient on room air at rest with sats 96-100%. With transition EOB, 92% on RA, placed on 2L supplemental O2 for ambulation, maintained ~96% on 2L supplemental O2 via NC. Therapeutic Activity: Bed Mobility Training: Independent sit <> supine. Transfer training: pt performed sit <> stand transfers to/from EOB and wheelchair with supervision and cues for rolling walker placement and hand placement. Ambulation/aerobic capacity training: Loaner rolling walker was provided and fit to patient. Patient and her friend, Aston, were instructed in proper fitting of walker. Patient ambulated 2 x 100 feetwith rolling walker and close supervision with standing rest break between efforts. Cues for pursedlip breathing control, rolling walker management/positioning. At first, patient attempting to belt picker rolling walker with each step despite previous demonstration, however, with further cueing she was able to demonstrate safe/efficient use management of rolling walker. No loss of balance. ALEJANDRE during second ambulation effort. Cues for pacing and self-initiating rest breaks. Stairs: Patient denies need for stairs at home. Patient/Family Education: Topic: Discharge planning Role of therapy Safety Gait with rolling walker Learner: patient Method: verbal Barriers to Learning: none noted Outcome: verbalized understanding and returned demonstration Team Communication: Patient status discussed with RN prior to and after PT intervention. RN aware of pt's mobility status. ASSESSMENT: Patient is demonstrating gains in endurance with decreased dyspnea as compared to initial evaluation, she is also demonstrating decreased FiO2 needs. Do recommend rolling walker at this time, as it promotes energy conservation and increased stability which patient is able to appreciate. Patient is awaiting home O2 evaluation. PLAN: Continue per plan of care. Recommended Discharge Destination: Home with caregiver Recommended Discharge Services: Home health physical therapy Recommended Equipment Needs: Rolling walker, ?home O2 Other recommendations: Home O2 evaluation Primary Therapist: Pager: [phone] Francesca Grimaldo, PT 02/16/2014 6:31 * Felton Mcclure - 02/15/2014 9685 EDT Pulmonary Inpatient Follow-up Note Admit Date: 02/12/2014 Date of Service: 02/15/2014 Subjective: Patient reports significant improvement in symptoms of shortness of breath. She has been successfully weaned from 4 L of oxygen nasal cannula to room air. 24 hour Events: - Patient received x2 doses of 40 mg IV Lasix. Net -1 L since admission. - Patient has been ambulating on the vicente without assistance. - No acute events overnight. PMH PSH Past Medical History Diagnosis Date ??? UTI [...] 03/01/2013 ??? COPD (chronic obstructive pulmonary disease) Past Surgical History Procedure Laterality Date ??? Salpingectomy 1982 ectopic ??? Hysterectomy, vaginal menorrhagia ??? Shoulder arthroscopy 10/15 left, with acromioplasty ??? Gastric fundoplication 03/02/07 [facility] ??? Cervical spine surgery 12/31/08 discectomy, fusion C4-7 Dr Dewitt ??? Colonoscopy 07/29/09 repeat 10 years ??? Ankle fracture surgery 04/01/10 left ankle [facility] ??? Cyst incision and drainage 09/17/10 left cheek ??? Fine needle aspiration 09/19/10 left cheek ??? Cystoscopy 02/14/13 Social History Family History History Substance Use Topics ??? Smoking status: [...] Hx ??? Depression Brother ??? Depression Brother Medications Current Facility-Administered Medications Medication Route Frequency ??? acetaminophen (TYLENOL) tablet 650 mg oral Q6H PRN ??? albuterol (ACCUNEB) nebulizer solution 5 mg nebulization Q4H PRN ??? azithromycin (ZITHROMAX) tablet 250 mg oral DAILY ??? baclofen (LIORESAL) tablet 10 mg oral TID PRN ??? cycloSPORINE (RESTASIS) 0.05 % ophthalmic emulsion 1 Drop both eyes BID ??? dextrose 50 % solution 12.5 g intravenous PRN ??? docusate sodium (COLACE) capsule 100 mg oral BID PRN ??? doxycycline (VIBRA-TABS) tablet 100 mg oral DAILY ??? enoxaparin (LOVENOX) injection 40 mg subcutaneous DAILY ??? fexofenadine (JUDITH) 12 hr tablet 180 mg oral DAILY ??? glucagon (human recombinant) injection 1 mg intramuscular PRN ??? HYDROcodone-acetaminophen (NORCO) 5-325 mg tablet 1-2 Tab oral Q6H PRN ??? HYDROcodone-acetaminophen (NORCO) 5-325 mg tablet 1-2 Tab oral Q6H PRN ??? hydroxypropyl methylcellulose (ISOPTO TEARS) 0.5 % ophthalmic solution 1 Drop both eyes PRN ??? insulin aspart (NOVOLOG FLEXPEN) injection subcutaneous TID WC ??? ipratropium-albuterol (DUONEB) 0.5 mg-3 mg(2.5 mg base)/3 mL nebulizer solution 3 mL nebulization Q4H ??? mometasone (NASONEX) 50 mcg/actuation nasal spray 2 Clive nasal DAILY ??? mometasone-formoterol (DULERA) 200-5 mcg/actuation inhaler 2 Puff inhalation BID ??? montelukast (SINGULAIR) tablet 10 mg oral DAILY ??? nortriptyline (PAMELOR) capsule 75 mg oral DAILY ??? ondansetron (PF) (ZOFRAN) injection 4 mg intravenous Q4H PRN Or ??? ondansetron (ZOFRAN-ODT) disintegrating tablet 4 mg oral Q4H PRN ??? pantoprazole (PROTONIX) tablet 40 mg oral DAILY ??? predniSONE (DELTASONE) tablet 40 mg oral DAILY ??? pregabalin (LYRICA) capsule 150 mg oral TID ??? roflumilast tablet 500 mcg oral DAILY ??? rOPINIRole (REQUIP) tablet 2 mg oral QHS ??? sertraline (ZOLOFT) tablet 200 mg oral DAILY ??? tamsulosin (FLOMAX) capsule 0.4 mg oral DAILY ??? tiotropium (SPIRIVA) 18 mcg inhalation capsule 18 mcg inhalation DAILY ??? zolpidem (AMBIEN) tablet 5 mg oral AT BEDTIME PRN Allergies Allergies Allergen Reactions ??? Toradol (Ketorolac Tromethamine) Hives ??? Motrin (Ibuprofen) Itching Review of Systems: A 12 point review of system was performed and is negative aside from what is mentioned above, within the HPI. Objective/Physical Exam: VS: Patient Vitals for the past 8 hrs: Heart Rate Resp SpO2 O2 Flow Rate (L/min) O2 Device 02/15/14 1250 98 BPM 22 94 % 1 l/min Nasal cannula 02/15/14 1025 - - 89 % 0 l/min Room air 02/15/14 0930 - - 94 % 1 l/min Nasal cannula 02/15/14 0910 70 BPM 18 93 % 1 l/min Nasal cannula 02/15/14 0742 - - 98 % 2 l/min Nasal cannula Exam: Gen: Alert and oriented x3 noted to be no acute distress Lung exam is significant for diffuse expiratory wheezing with evidence of scattered crackles on auscultation. Cardiovascular exam is significant for regular rate and rhythm without any evidence of murmurs, rubs, or gallops. Abdomen obese, soft, nontender, bowel sounds present. There was no evidenceof surgical scars. Extremities significant for +1 edema bilaterally, warm on exam with good pulses at the DT and PT. Neurological exam: The patient is alert and oriented x3, noted to be mildly anxious, moves all extremities. Patient is ambulating. Data Review: I have independently visualized the Labs: date CBC: Lab Results Component Value Date WBC 10.72 02/15/2014 RBC 4.43 02/15/2014 HGB 13.8 02/15/2014 HCT 40.7 02/15/2014 MCV 92 02/15/2014 MCH 31.1 02/15/2014 MCHC 33.9 02/15/2014 PLT 299 02/15/2014 NEUTROABS 9.33* 02/15/2014 SEDRATE 4 06/28/2008 BMP: Lab Results Component Value Date NA 141 02/15/2014 K 4.2 02/15/2014 CL 99 02/15/2014 CO2 29 02/15/2014 BUN 21 02/15/2014 CREATININE 0.50* 02/15/2014 GLUCOSEFINGE 222* 02/15/2014 CALCIUM 8.3* 10/26/2012 MG 2.1 02/12/2014 PHOS 3.0 10/26/2012 LABALBU 3.9 07/21/2011 Coagulation: Lab Results Component Value Date PROTIME 12.5* 02/12/2014 INR 1.2* 02/12/2014 PTT 34 02/12/2014 Cardiac markers: Lab Results Component Value Date TROPONINI <0.034 02/12/2014 TROPONINI Marked hemolysis 02/12/2014 TROPONINI <0.034 04/05/2012 Other Studies: DATA: Pulmonary function test is significant for FVC of 2.23 liters, 64% predicted; FEV1 of 1.69 L,which is 62% predicted; FEV1 to FVC ratio of 96%, results of which are consistent with restriction,muscle weakness, or poor effort. Assessment and Plan 1. Hypoxic Respiratory Failure: multifactorial. Likely a combination of COPD exacerbation, pulmonary edema. Bilateral infiltrates noted on radiographic images unlikely chronic/subacute and may be secondary to undiagnosed ILD, or hypersensitivity pneumonitis. Her acute hypoxic respiratory failure has improved with IV Solu-Medrol and concomitant diuresis. 2. Bilateral Ground glass infiltrates bilaterally: recurrent. Prior radiographic images dating back to 2011 showed evidence of bilateral infiltrate. This may suggest a chronic and progressive process or a specific exposure that occurs during this time of the year, prompting a hypersensitivity type of reaction. Her history is concerning for ongoing marijuana use. I have counseled her the potential respiratoryeffects of continued exposure. History of marijuana can cause RPR ILD. Please obtain chest x-ray - PA and Lateral tomorrow. 3. AECOPD Patient is symptomatically much improved and given the persistent evidence of wheezing on clinical exam, we would recommend transition to oral prednisone today with subsequent taper of 14 day period. Continue Spiriva daily; Advair 2 puffs twice daily, 115 mcg; albuterol q.4 p.r.n.; DuoNeb q.4 as needed.. Followup with Dr. Virk in 3-4 weeks. Nathaniel Hillman MD I saw and examined the patient with the fellow / resident at the bedside. All the relevant imaging studies and laboratory tests were independently reviewed. I agree with the assessment and treatment plan as specified in the fellow / resident's note. Felton Mcclure MD Pulmonary, Critical Care and Sleep Medicine. * Jesi Bajwa - 02/15/2014 1332 EDT Medical Student Family Medicine Progress Note Admit Date: 02/12/2014 Hospital Day: LOS: 3 days Date of Service: 02/15/2014 PCP: Moi Munoz MD Reason for Visit: shortness of breath, home O2 sat to 70's 24 Hour Events: sat 94% on 1L, ambulating in hallway, magallon removed, lasix administered, switched from methylprednisolone to PO prednisone Subjective: Ms. Meadows reports feeling better this morning. She has some shortness of breath, but less than before. She has been able to ambulate, and wanted her magallon removed so that she could ambulate more. She reports getting a better nights sleep after moving rooms, and no longer has a headache. ROS: denies chest pain, fevers, chills, abdominal pain, leg swelling, N/V Objective: 24 hr VS Range: Currently 94% on 1L Temp: [36 ??C (96.8 ??F)-36.6 ??C (97.9 ??F)] , Heart Rate: [65 BPM-98 BPM] , Resp: [18-22] , BP: (102-138)/(52-74) , SpO2: [89 %-98 %] I+O: last shift: 320ml in, 575ml out. -1L since admission. Height/Weight: Height: 162.6 cm (64) Weight : 86.365 kg (190 lb 6.4 oz) Physical Exam: Lying on bed, appears more comfortable then previous exams. CV: RRR, no MRG. Resp: coarse breath sounds b/l throughout with scattered wheezes, no crackles. Sating 95% on 2L when in the room. Extremities: no swelling or edema, warm/well perfused. Labs: WBC/Hgb/Hct/Plts: 10.72/13.8/40.7/299 (02/15 834) Na/K/Cl/CO2: 141/4.2/99/29 (02/15 834) BUN/Cr/glu/ALT/AST/amyl/lip: 21/0.50/--/--/--/--/-- (02/15 834) PFTs (02/13/14): Pulmonary function test is significant for FVC of 2.23 liters, 64% predicted; FEV1 of 1.69 L, which is 62% predicted; FEV1 to FVC ratio of 96%, results of which are consistent with restriction, muscle weakness, or poor effort. Imaging/Micro: CT chest w/ contrast (02/12/14): Diffuse predominantly central as well as slight mid and lower lobe predominant groundglass opacities. Given evidence of interlobular septal thickening and fissural prominence, this may represent pulmonary edema. Other considerations include viral pneumonia or DIP if the patient is a current heavy smoker. 3. Slight interval increase of juli tissue, felt to be reactive. 4. Subtle decreased attenuation of the cardiac septum and apex with respect to the lateral wallmyocardium. Although this finding is nonspecific and the patient lacks coronary calcifications, given the possibility of pulmonary edema within the chest, would recommend correlation with cardiac enzymes. 5. Severe emphysema. ECHO (02/13/14): 1. Left ventricle: The cavity size was normal. Wall thickness was normal. Systolic function was normal. The estimated ejection fraction was 55-60%. Wall motion was normal; there were no regional wall motion abnormalities. Left ventricular diastolic function parameters were normal for the patient's age. 2. Pulmonary arteries: Pulmonary systolic pressure was within the normal range. Assessment/Plan: Maria Del Rosario Meadows is a 53 y.o. woman with a history of severe emphysema, COPD, asthma, and smoking (2ppd for 30 years, quit 1 year ago) who presents with 7 days of increased dyspnea, cough, and a home measured desat to the 70's. In the ER she improved on oxygen, nebs, and methylprednisolone, and she has been slowly improving on the floor with pharmacological support. #. Dyspnea - acute and chronic component. acute component likely COPD exacerbation, though unclear inciting event. Less likely pneumonia (normal WBC), less likely pulmonary edema (no crackles, normalECHO, no LE edema). 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 Unclear etiology at this time, differential diagnosis remains wide, including hypersensitivity pneumonitis, MOTOR [employer] REPRESENTATIVE, idiopathic ILD. Per pulmonology note, PFTs suggestive of restrictive process. - Pulmonology consult recs: diuresis to net negative 1.5-2L, meds: tiotropium daily, advair 2 puffsBID 115mcg, albuterol q4 PRN, DuoNeb q4 - switched from IV solumedrol to 40mg prednisone, anticipating discharge tomorrow - If clinically deteriorates, bronchoscopy with specimen collection - 1x Lasix 40mg at 1208 today, 1 more time this evening before CXR tomorrow morning - azithromycin 250mg daily (started 02/12) - Dulera 2 puff BID, montelukast, roflumilast 500mcg TID - strict I/O - removed magallon #. GERD - pantoprazole #. Chronic neck/back pain - baclofen 10mg TID PRN, hydrocodone/APAP 5/325 1-2 tabs q6h PRN, [id number] TID Dispo: to home likely tomorrow, possibly with home O2 DVT ppx: enoxaparin 40mg Code Status: Full Code Jesi Bajwa, MS-4 Pager # [phone] 02/15/2014 13:33 * Herminia Wetzel MD - 02/15/2014 1031 EDT Family Medicine/Medicine Progress Note Admit Date: 02/12/2014 Hospital Day: LOS: 3 days Date of Service: 02/15/2014 Chief Complaint: dyspnea 24 hour events: -tolerated PT with some ALEJANDRE -walked ~[address] to a new room -O2 decreased from 4L-->2L Subjective: Patient states that she is feeling better this AM. No fevers/chills. Mild to moderate dyspnea with ambulating. No chest pain or palpitations. No fever or chills. Objective/Physical Exam: BP 138/74 Pulse 66 Temp(Src) 36 ??C (96.8 ??F) (Tympanic) Resp 18 Ht 162.6 cm (64) Wt 86.365 kg (190 lb 6.4 oz) BMI 32.67 kg/m2 SpO2 94% on 1L --> 89% on RA Exam: General appearance: alert, cooperative, no acute distress. Appears fatigued. Head: Normocephalic, without obvious abnormality, atraumatic, EOMI, NC in place. 0-2 L Lungs: Mildly labored WOB, inspiratory crackles with coarse expiratory breath sounds and wheezing -in all lung dalal Heart: RRR without murmur/gallops/or rubs. No LE edema. 2+ DP b/l. < 2 sec cap refill. Abdomen: soft, non-tender; bowel sounds normal; no masses, no organomegaly. No guarding/rigidity/rebound. Mental Status: awake and alert; oriented to person, place, and time Data Review: I have independently visualized the, x-ray(s) and image(s) ECHO 02/13 with Summary: 1. Left ventricle: The cavity size was normal. Wall thickness was normal. Systolic function was normal. The estimated ejection fraction was 55-60%. Wall motion was normal; there were no regional wall motion abnormalities. Left ventricular diastolic function parameters were normal for the patient's age. 2. Pulmonary arteries: Pulmonary systolic pressure was within the normal range. Labs: I have personally reviewed labs available in [facility]. Normal electrolytes, no leukocytosis but differential is pertinent for neutrophilia Assessment/Problems: Maria Del Rosario Meadows is a 53 y.o. female with history of severe COPD who presented with hypoxic respiratory failure and imaging showing with bilateral ground-glass abnormalities on CT. Etiology COPD exacerbation v pulmonary edema (heart failure unlikely per ECHO). Contribution of ILD infiltrates on CT exam to dyspnea unclear at this time. Overall clinical picture is improving: patient has been weaned to room air and is eager to ambulate. Active Hospital Problem List: Acute on chronic respiratory failure due to COPD / emphysema. Weaned to room air. -Appreciate pulmonology recommendations. -Azithromycin 250mg qd x4 doses started 02/12 -Duo nebs Q4H -Albuterol nebs Q4H PRN -Solu-medrol 60 mg Q6H, will switch to prednisone 40 mg daily -Dulera 2 puff BID -Spiriva daily -Roflumilast 500mcg daily -f/u pulm recs; if not improving, consider bronch. -Patient has been on doxycycline as an outpatient (indication: rosacea) Chronic pain. -Continue home regimen (lyrica, nortriptyline, hycrocodone-acetaminophen 5/325 q6h PRN, baclofen 10mg TID PRN) -Tylenol as written. Nutrition: regular diet DVT Prophylaxis: Lovenox Disposition: to home if able. PT to assess. Will need home oxygen eval. Code Status: FULL Consults: pulm Esha Hahn MD 02/15/2014 10:31 Attestation: I saw and evaluated the patient on 02/15/14. I agree with the findings and plan of care as documented in the resident's/fellow's note. Adjustments are noted with strikeout and green font as necessary. At the time of my exam, the patient was in a wheelchair getting ready to go off the floor for a walk. She is off of oxygen. Excellent air movement with drastic improvement in rales and wheezes since yesterday. Discussed with Dr. Mcclure, who saw her with me. She did not have any interval imaging since last spring to document improvement. Pulmonology follow up this summer will help with further evaluation - acute pneumonitis vs interstitial lung disease. There may be a significant contribution from direct and second- hand exposure to inhaled marijuana. Herminia Wetzel MD 02/15/2014 21:41 * Felton Mcclure - 02/14/2014 1821 EDT Pulmonary Inpatient Follow-up Note Admit Date: 02/12/2014 Date of Service: 02/14/2014 Subjective: Patient reports that she feels better in comparison to admission 2 days prior. She reports minimal wheeze and states that she is able to ambulate further before experiencing symptoms of shortness of breath. Upon review of the history discussed . Use for which he states that she is presently on Vicodin forchronic neck and back pain. She also states that she has remained abstinence from marijuana over the last year. Her urine tox screen was positive in September of 2013 for THC. Patient remains adamant that she has not been inhaling marijuana however has significant exposure to secondhand smoking. 24 hour Events: - Patient continues to to to maintain saturation over 90% - Magallon catheter was placed overnight with subsequent 40 IV Lasix administration. Ins and outs were not accurately documented and as such it is unclear if patient was aggressively diuresed. PMH PSH Past Medical History Diagnosis Date ??? UTI [...] 03/01/2013 ??? COPD (chronic obstructive pulmonary disease) Past Surgical History Procedure Laterality Date ??? Salpingectomy 1982 ectopic ??? Hysterectomy, vaginal menorrhagia ??? Shoulder arthroscopy 10/15 left, with acromioplasty ??? Gastric fundoplication 03/02/07 [facility] ??? Cervical spine surgery 12/31/08 discectomy, fusion C4-7 Dr Dewitt ??? Colonoscopy 07/29/09 repeat 10 years ??? Ankle fracture surgery 04/01/10 left ankle [facility] ??? Cyst incision and drainage 09/17/10 left cheek ??? Fine needle aspiration 09/19/10 left cheek ??? Cystoscopy 02/14/13 Social History Family History History Substance Use Topics ??? Smoking status: [...] Hx ??? Depression Brother ??? Depression Brother Medications Current Facility-Administered Medications Medication Route Frequency ??? acetaminophen (TYLENOL) tablet 650 mg oral Q6H PRN ??? albuterol (ACCUNEB) nebulizer solution 5 mg nebulization Q4H PRN ??? azithromycin (ZITHROMAX) tablet 250 mg oral DAILY ??? baclofen (LIORESAL) tablet 10 mg oral TID PRN ??? cycloSPORINE (RESTASIS) 0.05 % ophthalmic emulsion 1 Drop both eyes BID ??? dextrose 50 % solution 12.5 g intravenous PRN ??? docusate sodium (COLACE) capsule 100 mg oral BID PRN ??? doxycycline (VIBRA-TABS) tablet 100 mg oral DAILY ??? enoxaparin (LOVENOX) injection 40 mg subcutaneous DAILY ??? fexofenadine (JUDITH) 12 hr tablet 180 mg oral DAILY ??? glucagon (human recombinant) injection 1 mg intramuscular PRN ??? HYDROcodone-acetaminophen (NORCO) 5-325 mg tablet 1-2 Tab oral Q6H PRN ??? HYDROcodone-acetaminophen (NORCO) 5-325 mg tablet 1-2 Tab oral Q6H PRN ??? hydroxypropyl methylcellulose (ISOPTO TEARS) 0.5 % ophthalmic solution 1 Drop both eyes PRN ??? insulin aspart (NOVOLOG FLEXPEN) injection subcutaneous TID WC ??? ipratropium-albuterol (DUONEB) 0.5 mg-3 mg(2.5 mg base)/3 mL nebulizer solution 3 mL nebulization Q4H ??? methylPREDNISolone sod suc(PF) (SOLU-MEDROL) injection 60 mg intravenous Q6H ??? mometasone (NASONEX) 50 mcg/actuation nasal spray 2 Clive nasal DAILY ??? mometasone-formoterol (DULERA) 200-5 mcg/actuation inhaler 2 Puff inhalation BID ??? montelukast (SINGULAIR) tablet 10 mg oral DAILY ??? nortriptyline (PAMELOR) capsule 75 mg oral DAILY ??? ondansetron (PF) (ZOFRAN) injection 4 mg intravenous Q4H PRN Or ??? ondansetron (ZOFRAN-ODT) disintegrating tablet 4 mg oral Q4H PRN ??? pantoprazole (PROTONIX) tablet 40 mg oral DAILY ??? pregabalin (LYRICA) capsule 150 mg oral TID ??? roflumilast tablet 500 mcg oral DAILY ??? rOPINIRole (REQUIP) tablet 2 mg oral QHS ??? sertraline (ZOLOFT) tablet 200 mg oral DAILY ??? tamsulosin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 patient lacks coronary calcifications, given the possibility of pulmonary edema within the chest, would recommend correlation with cardiac enzymes. 5. Severe emphysema. ECHO (02/13/14): 1. Left ventricle: The cavity size was normal. Wall thickness was normal. Systolic function was normal. The estimated ejection fraction was 55-60%. Wall motion was normal; there were no regional wall motion abnormalities. Left ventricular diastolic function parameters were normal for the patient's age. 2. Pulmonary arteries: Pulmonary systolic pressure was within the normal range. Assessment/Plan: Maria Del Rosario Meadows is a 53 y.o. woman with a history of severe emphysema, COPD, asthma, and smoking (2ppd for 30 years, quit 1 year ago) who presents with 7 days of increased dyspnea, cough, and a home measured desat to the 70's. In the ER she improved on oxygen, nebs, and methylprednisolone. #. Dyspnea - acute and chronic component. acute component likely COPD exacerbation, though unclear inciting event. Less likely pneumonia (normal WBC), less likely pulmonary edema (no crackles, normalECHO, no LE edema). 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 Unclear etiology at this time, differential diagnosis remains wide, including hypersensitivity pneumonitis, MOTOR VEHICLE FIELD REPRESENTATIVE, chronic eosinophilic pneumonia, idiopathic ILD. Per pulmonology note, PFTs suggestive of restrictive process. - Pulmonology consult recs: continue diuresis, meds: IV solumedrol 60mg q6, tiotropium daily, advair 2 puffs BID 115mcg, albuterol q4 PRN, DuoNeb q4 - If clinically deteriorates, bronchoscopy with specimen collection - switched from prednisone to IV solumedrol - 1x Lasix 40mg - azithromycin 250mg daily for 4 days, Dulera 2 puff BID, montelukast, roflumilast 500mcg TID - normal ECHO, sputum culture pending - magallon placed (dyspnic with ambulation to bathroom), chart I/O #. Abdominal pain - resolved this am, hx of GERD - pantoprazole #. Chronic neck/back pain - no change - baclofen 10mg TID PRN, hydrocodone/APAP 5/325 q6h PRN, [id number] TID #. Headache - stable - sumatriptan 50mg daily Dispo: to home when pulmonary function improves, home O2 eval likely required DVT ppx: enoxaparin 40mg Code Status: Full Code Jesi Bajwa, MS-4 Pager # [phone] 02/13/2014 11:49 * Felton Mcclure - 02/13/2014 1109 EDT Pulmonary Inpatient Follow-up Note Admit Date: 02/12/2014 Date of Service: 02/13/2014 Subjective: Patient reports continued symptoms of dyspnea, at rest and with minimal exertion. She describes little improvement since admission yesterday. Patient reports orthopnea however no PND. Patient has been utilizing duo neb every 4 hours for management of widespread wheezing. Patient reports little in the way of sputum production. Afebrile overnight. White blood count within normal limits 24 hour Events: - Remained on 4 L of oxygen nasal cannula - Urine output was not measured and patient did not receive any additional dose of Lasix following admission to the medical floor H PSH Past Medical History Diagnosis Date ??? UTI [...] 03/01/2013 ??? COPD (chronic obstructive pulmonary disease) Past Surgical History Procedure Laterality Date ??? Salpingectomy 1982 ectopic ??? Hysterectomy, vaginal menorrhagia ??? Shoulder arthroscopy 10/15 left, with acromioplasty ??? Gastric fundoplication 03/02/07 Aspen ??? Cervical spine surgery 12/31/08 discectomy, fusion C4-7 Dr Dewitt ??? Colonoscopy 07/29/09 repeat 10 years ??? Ankle fracture surgery 04/01/10 left ankle [facility] ??? Cyst incision and drainage 09/17/10 left cheek ??? Fine needle aspiration 09/19/10 left cheek ??? Cystoscopy 02/14/13 Social History Family History History Substance Use Topics ??? Smoking status: [...] Hx ??? Depression Brother ??? Depression Brother Medications Current Facility-Administered Medications Medication Route Frequency ??? acetaminophen (TYLENOL) tablet 650 mg oral Q6H PRN ??? azithromycin (ZITHROMAX) tablet 250 mg oral DAILY ??? baclofen (LIORESAL) tablet 10 mg oral TID PRN ??? cycloSPORINE (RESTASIS) 0.05 % ophthalmic emulsion 1 Drop both eyes BID ??? dextrose 50 % solution 12.5 g intravenous PRN ??? docusate sodium (COLACE) capsule 100 mg oral BID PRN ??? doxycycline (VIBRA-TABS) tablet 100 mg oral DAILY ??? enoxaparin (LOVENOX) injection 40 mg subcutaneous DAILY ??? fexofenadine (JUDITH) 12 hr tablet 180 mg oral DAILY ??? glucagon (human recombinant) injection 1 mg intramuscular PRN ??? HYDROcodone-acetaminophen (NORCO) 5-325 mg tablet 1-2 Tab oral Q6H PRN ??? HYDROcodone-acetaminophen (NORCO) 5-325 mg tablet 1-2 Tab oral Q6H PRN ??? hydroxypropyl methylcellulose (ISOPTO TEARS) 0.5 % ophthalmic solution 1 Drop both eyes PRN ??? insulin aspart (NOVOLOG FLEXPEN) injection subcutaneous TID WC ??? ipratropium-albuterol (DUONEB) 0.5 mg-3 mg(2.5 mg base)/3 mL nebulizer solution 3 mL nebulization Q4H ??? mometasone (NASONEX) 50 mcg/actuation nasal spray 2 Clive nasal DAILY ??? mometasone-formoterol (DULERA) 200-5 mcg/actuation inhaler 2 Puff inhalation BID ??? montelukast (SINGULAIR) tablet 10 mg oral DAILY ??? nortriptyline (PAMELOR) capsule 75 mg oral DAILY ??? ondansetron (PF) (ZOFRAN) injection 4 mg intravenous Q4H PRN Or ??? ondansetron (ZOFRAN-ODT) disintegrating tablet 4 mg oral Q4H PRN ??? pantoprazole (PROTONIX) tablet 40 mg oral DAILY ??? predniSONE (DELTASONE) tablet 40 mg oral DAILY ??? pregabalin (LYRICA) capsule 150 mg oral TID ??? roflumilast tablet 500 mcg oral DAILY ??? rOPINIRole (REQUIP) tablet 2 mg oral QHS ??? sertraline (ZOLOFT) tablet 200 mg oral DAILY ??? sumatriptan (IMITREX) tablet 50 mg oral ONCE ??? tamsulosin (FLOMAX) capsule 0.4 mg oral DAILY ??? tiotropium (SPIRIVA) 18 mcg inhalation capsule 18 mcg inhalation DAILY ??? zolpidem (AMBIEN) tablet 5 mg oral AT BEDTIME PRN Allergies Allergies Allergen Reactions ??? Toradol (Ketorolac Tromethamine) Hives ??? Motrin (Ibuprofen) Itching Review of Systems: A 12 point review of system was performed and is negative aside from what is mentioned above, within the HPI. Objective/Physical Exam: VS: Patient Vitals for the past 8 hrs: BP Pulse Heart Rate Resp Temp SpO2 O2 Flow Rate (L/min) O2 Device 02/13/14 1048 - - - - - - 5 l/min Nasal cannula 02/13/14 1037 114/61 mmHg 82 - 20 37 ??C (98.6 ??F) 91 % 5 l/min Nasal cannula 02/13/14 0814 - - 73 BPM 20 - 91 % 4 l/min Nasal cannula 02/13/14 0511 122/58 mmHg 84 - 18 36.7 ??C (98.1 ??F) 94 % 4 l/min Nasal cannula Exam: On exam, patient is alert and oriented x3, noted to be in moderate respiratory distress. She is notably tachypneic with evidence of clubbing of the digits. Examination of the oral cavity reveals poororal hygiene, poor dental hygiene, with a Mallampatti score of 1. There is no evidence of thrush. Nares are without evidence of erythema or mucus. Lung exam is significant for widespread rhonchi and expiratory wheezing. There is prolonged expiratory phase. Cardiovascular exam is significant for regular rate and rhythm without any evidence of murmurs, rubs, or gallops. Abdomen obese, soft, nontender, bowel sounds present. There was no evidence of surgical scars. Extremities significant for +1 edema bilaterally, warm on exam with good pulses at the DT and PT. Neurological exam: The patient is alert and oriented x3, noted to be mildly anxious, moves all extremities. Gait was not fully assessedas she had to be assisted on ambulation. Data Review: I have independently visualized the Labs: CBC: Lab Results Component Value Date WBC 7.53 02/13/2014 RBC 4.13 02/13/2014 HGB 12.9 02/13/2014 HCT 37.1 02/13/2014 MCV 90 02/13/2014 MCH 31.3 02/13/2014 MCHC 34.8 02/13/2014 PLT 332* 02/13/2014 NEUTROABS 6.44 02/13/2014 SEDRATE 4 06/28/2008 BMP: Lab Results Component Value Date NA 142 02/13/2014 K 4.0 02/13/2014 CL 103 02/13/2014 CO2 26 02/13/2014 BUN 12 02/13/2014 CREATININE 0.50* 02/13/2014 GLUCOSEFINGE 145* 02/13/2014 CALCIUM 8.3* 10/26/2012 MG 2.1 02/12/2014 PHOS 3.0 10/26/2012 LABALBU 3.9 07/21/2011 Coagulation: Lab Results Component Value Date PROTIME 12.5* 02/12/2014 INR 1.2* 02/12/2014 PTT 34 02/12/2014 Cardiac markers: Lab Results Component Value Date TROPONINI <0.034 02/12/2014 TROPONINI Marked hemolysis 02/12/2014 TROPONINI <0.034 04/05/2012 Other Studies: DATA: Pulmonary function test is significant for FVC of 2.23 liters, 64% predicted; FEV1 of 1.69 L,which is 62% predicted; FEV1 to FVC ratio of 96%, results of which are consistent with restriction,muscle weakness, or poor effort. Assessment and Plan 1. Hypoxic Respiratory Failure: multifactorial. Acute COPD exacerbation, possible pulmonary edema in addition to ILD infiltrates. 2. Bilateral Ground glass infiltrates bilaterally: recurrent. Less likely infectious etiology given normal WBC count and lack of other convincing signs of acute infection. 3. AECOPD Continue IV Solu-Medrol q.6; Spiriva daily; Advair 2 puffs twice daily, 115 mcg; albuterol q.4 p.r.n.; DuoNeb q.4 scheduled. - We would also recommend continued diuresis - f/u results of repeat echocardiography 4. Hx of positive UDS 2013: Tested positive for opiates, Benzos and cannabinoids. We will continue to follow her clinically. Should patient continue to deteriorate clinically, we may have to consider an urgent bronchoscopy for direct visualization and for obtaining specimen. We will continue to follow with you. Nathaniel Hillman MD Pulmonary and Critical Care Fellow I saw and examined the patient with the fellow / resident at the bedside. All the relevant imaging studies and laboratory tests were independently reviewed. I agree with the assessment and treatment plan as specified in the fellow / resident's note. Felton Mcclure MD Pulmonary, Critical Care and Sleep Medicine. * Nathaniel Hillman MD - 02/13/2014 1106 EDT Please see intitial Pulmonary consult note within the note section of the chart review tab. Nathaniel Hillman MD * Herminia Wetzel MD - 02/13/2014 0714 EDT Family Medicine/Medicine Progress Note Admit Date: 02/12/2014 Hospital Day: LOS: 1 day Date of Service: 02/13/2014 Chief Complaint: dyspnea 24 hour events: admitted from ED, pulm consulted. Subjective: Patient states that she feels somewhat better this AM. Feels as though her breathing has improved. No chest pain. Does not feel wheezy currently. Chest does not feel tight. Asya fever/chills. No abdominal pain. No recent decrease in UOP (states that it has increased, if anything, since she has started taking flomax). States that she feels dry--mouth/lips/throat feel dry. No peripheral edema. Has been getting up to use the bathroom independently without difficulty. Patient does c/o severe headache (migraine) at present. Objective/Physical Exam: VS: BP 122/58, T 36.7 (Tmax 37.6 o/n), P 84, R 18, SpO2 94% 4L Pain: 5/10 Exam: General appearance: alert, cooperative, wearing NC, no acute distress Head: Normocephalic, without obvious abnormality, atraumatic Neck: supple, symmetrical, trachea midline and no adenopathy Lungs: somewhat increased work of breathing, mild intercostal retractions, wheezes diffusely, no crackles appreciated Heart: RRR without murmur Abdomen: soft, non-tender; bowel sounds normal; no masses, no organomegaly Mental Status: awake and alert; oriented to person, place, and time Extremities: extremities warm, atraumatic, no cyanosis or edema; slight curvature of fingernails positive pulses bilat Pulses: 2+ and symmetric Data Review: I have independently visualized the, x-ray(s) and image(s) CT chest: Diffuse predominantly central as well as slight mid and lower lobe predominant groundglass opacities. Slight interval increase of juli tissue, felt to be reactive. Severe emphysema. Labs: I have personally reviewed labs available in [facility]. Significant for normal electrolytes, Cr 0.5, BNP 419, neg cardiac biomarkers Normal CBC (no leukocytosis) Assessment/Problems: (update problem list daily as appropriate) Maria Del Rosario Meadows is a 53 y.o.female PMH severe COPD / emphysema exacerbation with bilateral ground-glass abnormalities on CT. Active Hospital Problem List: Acute on chronic respiratory failure due to COPD / emphysema. Stable on 4L NC overnight -Azithromycin 250mg qd x4 doses starting today -duo nebs q4prn -prednisone 40mg x4 doses starting today -Continue non-form roflumilast 500mcg daily -f/u pulm recs; if not improving, consider bronch. ?Cardiogenic pulmonary edema -BNP 419 on admission. Does not seem clinically hypervolemic today. -Limited echo today to assess for interval change in cardiac function (LVEF 57% per nuclear stress test in 2008) Headache - sumatriptan 50 mg x1 Abdominal pain. On admission, now resolved. -Pantoprazole 40mg daily (on omeprazole at home) -IV or PO zofran 4mg q4prn. Chronic pain. -Continue home regimen (lyrica, nortriptyline, hycrocodone-acetaminophen 5/325 q6h PRN, baclofen 10mg TID PRN) -Tylenol as written. Nutrition: regular diet DVT Prophylaxis: Lovenox Disposition: to home if able. PT to assess. Will need home oxygen eval. Code Status: FULL Consults: pulm Esha Hahn MD 02/13/2014 7:14 Attestation: I saw and evaluated the patient on 02/13/14. I agree with the findings and plan of care as documented in the resident's/fellow's note. Adjustments are noted with strikeout and green font as necessary. The patient does not think she will be improved enough to consider discharge tomorrow and I agree. Remains dyspneic with diffusely abnormal lung exam and minimal exercise tolerance. Herminia Wetzel MD 02/13/2014 22:23 documented in this encounter H&P Notes * Vincent Peck MD - 02/12/2014 1839 EDT Family Medicine H&P Chief Complaint: dyspnea HPI Maria Del Rosario Meadows is a 53 y.o.female PMH severe COPD / emphysema who presented to ER day of admissionfor acute on chronic worsening shortness of breath. Has had dry and non productive cough, low grade temp (100F yest), fatigue, and progressive shorntess of breath. Measures o2 sat in the morning, has been low 90s to upper 80s past few days (usually mid 90s); thismorning was 70%. EMS came and put her on supplemental 02. Last couple days has been out by a bonfire; would get dyspneic and go back in the house. Specifically denies industrial exposure history. 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 Wore no inhalational protection ever. In the ER she was not short of breath but uncomfortable, relating nausea and abdominal pain, in fact vomited green emesis x1, then had resolution via zofran. Abd pain started this afternoon; relates similar to history of flares of GERD s/p Aspen; occasionally takes omeprazole for breakthrough GERD. Chronic pain back, knees, neck; takes vicodin daily; has been stable. Reportedly quit smoking 1 yr ago; 2ppd hx for 30 yrs. No etoh or substances. Lives at home independently with . ROS A ten point review of systems was performed, and was negative aside from that mentioned specifically in the HPI. PMH @Problemlist@ Past Medical History Diagnosis Date ??? UTI [...] 03/01/2013 ??? COPD (chronic obstructive pulmonary disease) Past Surgical History Procedure Laterality Date ??? Salpingectomy 1982 ectopic ??? Hysterectomy, vaginal menorrhagia ??? Shoulder arthroscopy 10/15 left, with acromioplasty ??? Gastric fundoplication 03/02/07 Aspen ??? Cervical spine surgery 12/31/08 discectomy, fusion C4-7 Dr Dewitt ??? Colonoscopy 07/29/09 repeat 10 years ??? Ankle fracture surgery 04/01/10 left ankle [facility] ??? Cyst incision and drainage 09/17/10 left cheek ??? Fine needle aspiration 09/19/10 left cheek ??? Cystoscopy 02/14/13 History Social History ??? Marital Status: Spouse Name: N/A Number of Children: N/A ??? Years of Education: N/A Occupational History ??? None Social History Main Topics ??? Smoking status: Former Smoker -- 2.00 packs/day for 35 years Types: Cigarettes Quit date: 10/14/2010 ??? Smokeless tobacco: Never Used ??? Alcohol Use: No Comment: rarely ??? Drug Use: No Comment: no longer using. ??? Sexually Active: Yes -- Male partner(s) Other Topics Concern ??? Not on file Social History Narrative from [place] (ETOH) Son Alexi and Daughter Yadira Currently living alone in [facility] Family History Problem Relation Age of Onset [...] Hx ??? Depression Brother ??? Depression Brother Meds Current Facility-Administered Medications Medication Route Frequency ??? albuterol (ACCUNEB) nebulizer solution 2.5 mg nebulization Q2H PRN ??? azithromycin (ZITHROMAX) 500 mg in dextrose 5% (D5W) 250 mL IVPB intravenous Now ??? ipratropium-albuterol (DUONEB) 0.5 mg-3 mg(2.5 mg base)/3 mL nebulizer solution 3 mL nebulization QID ??? NONFORMULARY MEDICATION 500 mcg oral DAILY Current Outpatient Prescriptions Medication Sig Dispense Refill [...] times daily. 3 Inhaler 3 ??? HYDROcodone-acetaminophen (LORTAB) 5-500 mg tablet Take 1 Tab by mouth every 6 hours as needed for Pain for 28 days. 112 Tab 0 ??? HYDROcodone-acetaminophen (LORTAB) 5-500 mg tablet Take 1 Tab by mouth every 6 hours as needed for Pain for 28 days. 112 Tab 0 ??? HYDROcodone-acetaminophen (NORCO) 5-325 [...] solution Take 3 mL by nebulization every 6 hours as needed for Wheezing. 2 Box 0 ??? levalbuterol (XOPENEX HFA) 45 mcg/actuation inhaler Take 2 puffs by mouth as needed for shortness of breath. 3 Inhaler 3 ??? [START ON 02/13/2014] methylphenidate (RITALIN;METHYLIN) 10 mg tablet Take one tab in the afternoon for narcolepsy. Earliest Fill Date: 02/13/14 30 Tab 0 ??? [START ON 02/13/2014] methylphenidate (RITALIN;METHYLIN) 20 mg tablet Take 2 Tabs by mouth daily.Earliest Fill Date: 02/13/14 60 Tab 0 ??? mometasone (NASONEX) 50 [...] as needed for Sleep. 30 Tab 5 Allergies Allergies Allergen Reactions ??? Toradol (Ketorolac Tromethamine) Hives ??? Motrin (Ibuprofen) Itching Physical Exam: BP 114/60 Pulse 87 Temp(Src) 36.9 ??C (98.4 ??F) (Oral) Resp 26 Ht 162.6 cm (64) Wt 88.905 kg (196 lb) BMI 33.63 kg/m2 SpO2 88% LMP 01/11/1987 General: Mild distress due to pain/nausea, relieved during exam with vomiting billious liquid, thenzofran. More comfortable appearing. HEENT: PERRL, EOM intact, anicteric sclera, dry mm, oropharynx without ulcers, exudate. Neck: supple, no cervical/supraclavicular lymphadenopathy, no JVD Heart: regular rate and rhythm, no murmurs/rubs/gallops Resp: Bilateral coarse rhonchi with wheeze mid and lower lobes; scant rales right > left; no consolidation, breath sounds equal bilaterally. GI: + bowel sounds, soft, non distended. Is tender epigastric region to palpation. Mild epigastric focal prominence, it's from my Aspen. : no suprapubic pain, no CVA tenderness Extremities: No peripheral edema, 2+ DP pulses, nl capillary refill skin: no rashes, lesions noted Neuro: AAOx3, No focal motor or sensory deficits noted Psychiatric: Answers questions appropriately, mood and affect WNL. Laboratory: Results for MARIA DEL ROSARIO MEADOWS ( ) as of 02/12/2014 19:35 Ref. Range 02/12/2014 15:41 O2 Saturation No range found 94 pH, i-STAT Latest Range: 7.35-7.45 7.42 pCO2, i-STAT Latest Range: 35-45 mmHg 34 (L) pO2, i-STAT Latest Range: 80-105 mmHg 68 (L) TCO2, i-STAT No range found 23 Sample Type No range found ARTERIAL Base Deficit, i-STAT No range found 2 Results for MARIA DEL ROSARIO MEADOWS ( ) as of 02/12/2014 19:35 Ref. Range 02/12/2014 12:14 Sodium Latest Range: 136-145 mEq/L 144 Potassium Latest Range: 3.5-5.0 mEq/L 3.9 CO2 Latest Range: 24-32 mEq/L 25 Chloride Latest Range: 96-110 mEq/L 109 BUN Latest Range: 10-26 mg/dl 10 Creatinine Latest Range: 0.7-1.5 mg/dl 0.46 (L) Results for MARIA DEL ROSARIO MEADOWS ( ) as of 02/12/2014 19:35 Ref. Range 02/12/2014 12:14 CK Latest Range: 30-135 U/L 90 MB Latest Range: <2.95 ng/ml 0.33 Troponin I Latest Range: <0.034 ng/ml <0.034 NT Pro BNP Latest Range: <300 pg/ml 419 (H) Results for MARIA DEL ROSARIO MEADOWS ( ) as of 02/12/2014 19:35 Ref. Range 02/12/2014 12:14 Lipase Latest Range: 0-250 U/L <15 Bilirubin, Total Latest Range: <1.4 mg/dl 0.6 ALT Latest Range: 9-52 U/L 15 AST Latest Range: 15-46 U/L 28 Total Alkaline Phosphatase Latest Range: 38-126 U/L 115 Results for MARIA DEL ROSARIO MEADOWS ( ) as of 02/12/2014 19:35 Ref. Range 02/12/2014 12:14 Pro Time Latest Range: 12.0-15.0 secs 12.5 (H) I.N.R. Latest Range: 0.9-1.1 Ratio 1.2 (H) PTT Latest Range: 20-35 secs 34 Radiology: Chest CT PE protocol: 1. No evidence of pulmonary embolism. 2. Diffuse predominantly central as well as slight mid and lower lobe predominant groundglass opacities. Given evidence of interlobular septal thickening and fissural prominence, this may represent pulmonary edema. Other considerations include viral pneumonia or DIP if the patient is a current heavy smoker. 3. Slight interval increase of juli tissue, felt to be reactive. 4. Subtle decreased attenuation of the cardiac septum and apex with respect to the lateral wall myocardium. Although this finding is nonspecific and the patient lacks coronary calcifications, given the possibility of pulmonary edema within the chest, would recommend correlation with cardiac enzymes. 5. Severe emphysema. Portable CXR: The patient as once again developed fairly widespread interstitial and airspace opacities that are worse in the lower lung zones. Although no definite Hunter B- lines are identified, the recurrent nature suggests pulmonary edema. The cardiac silhouette is normal in size. No evidence of pleural fluidor pneumothorax is visible on this nearly erect study. The patient has had lower anterior cervical spine fusion. ECG read as normal rate, normal rhythm, normal axis, intervals WNL, no ST changes nor T wave abnormalities; no Q waves. A&P Impression: Maria Del Rosario Meadows is a 53 y.o.female PMH severe COPD / emphysema exacerbation with non-classic exam and notable bilateral ground glass abnormalities on CT. Active Hospital Problem List: Acute on chronic respiratory failure due to COPD / emphysema. Stable on 2 L in ER, improved with steroids and duo-nebs. CBC shows neutophilic predominance (but is on steroids). Eos notably normal. Possible exposure history making things worse. Will admit and treat for COPD exacerbation but will have pulmonology weigh in while inpatient. -Azithromycin 250mg qd x4 doses starting tomorrow -duo nebs q4prn -prednisone 40mg x4 doses starting tomorrow -Continue non-form roflumilast 500mcg daily -f/u pulm recs; if not improving in 24-48hrs consider bronch. Abdominal pain. Hx of Aspen and severe GERD; does need PPI usually. Emesis in ED assc w abd pain likely ALISSON flare, as she relates. Improved with zofran. -Pantoprazole 40mg daily. -IV or PO zofran 4mg q4prn. Chronic pain. Acute flare with systemic illness / flare and she has had none of her regular meds today. -Add home baclofen now (patient asked for this). -Would opt to try her home regimen as she related she could do pills. -Tylenol as written. Nutrition: full liquid. Wanting to try pudding. DVT Prophylaxis: Lovenox Disposition: Inpatient admission likely; then to home if able. PT to assess. May need home oxygen eval. Code Status: FULL Patient & Plan discussed with Dr. Peck. Anshu Elizabeth MD PGY 2 [phone] 02/12/2014 19:41 Attestation statement for inpatient note: I interviewed and examined this patient on the day of theabove note and agree with the findings and plan of care documented in the resident's/fellow's note. Vincent Peck MD Family Medicine Attending 02/12/2014 20:27 documented in this encounter Procedure Notes * Keira Thornton II RT - 02/15/2014 1646 EDTAssociated Order(s): EVAL FOR HOME OXYGEN USE HOME 02 EVALUATION 6 Minute Walk Test / Interpretation Name: Maria Del Rosario Meadows Date of : 1960 DIAGNOSIS: Dyspnea, COPD Exacerbation RESTING O2 TITRATION FLOW 0 SPO2 94 % % % % % % Walking with assistive device. TIME HR SPO2 LPM COMMENTS Standing 96 93 0 30 second 94 96 0 1 minute 98 92 0 1 min/30 sec 109 92 0 2 minutes 107 91 0 2 min/30 sec 108 92 0 3 minutes 112 93 0 3 min/30 sec 107 93 0 4 minutes 108 95 0 4 min/30 sec 110 95 0 5 minutes 112 93 0 5 minutes/30 sec 109 94 0 6 minutes 108 93 0 Testing terminated prior to 6 minutes secondary to . Distance walked 1200 Ft . Dyspnea scale: 7 /10. RECOMMENDATIONS No oxygen indicated @ this time. Patient states it would be nice to have when I need it or when I feel SOB. Continuous . Flow rate: resting, exercise. Noncontinuous hours per day: Walking, sleeping, exercise program, other. Re-evaluate in month(s). PCP: Moi Munoz MD Therapist Signature: Keira Thornton II, RT Expires: 02-17-2014 documented in this encounter Consult Notes * Felton Mcclure - 02/12/2014 2017 EDT INPATIENT CONSULTATION SERVICE DATE: 02/12/2014 REQUESTING PHYSICIAN: Moi Min IV, MD REASON FOR CONSULT: Acute hypoxic respiratory failure, abnormal CT scans remarkable for bilateral ground-glass opacities. HISTORY OF PRESENTING ILLNESS: Ms Meadows is a 53-year-old female with a past medical history most significant for asthma and COPD. She was last seen at the pulmonary clinic. She was last admitted to [facility] in February 2013 for symptoms of acute hypoxic respiratory failure with accompanying radiologic evidence of bilateral i nfiltrates. During this admission, she portrayed evidence of mild leukocytosis and cough productiveof sputum. She was treated with a prednisone burst in addition to optimal COPD management. Upon review of her radiologic data, her chest x-ray performed in February 2013 does reflect progression of bilateral infiltrates, left greater than right, in comparison to the radiographic data from March 2012. Following this hospitalization, she was seen at pulmonary clinic in followup in August 2013. At thistime, her COPD regimen was optimized, and she reported compliance with Spiriva daily, DuoNeb 4 times a day p.r.n., montelukast, roflumilast, Advair. During this visit, a 6-minute walk test was performed, which revealed no immediate need for supplemental oxygenation. However, Ms Meadows did report persistent symptoms of shortness of breath with moderate to severe exertion such as working around the home and going grocery shopping. At times, she reported pulse oximetry readings as low as 85%. During this admission, she presents with a 1-week history of progressive shortness of breath on exertion to a point that this morning she felt acutely short of breath, which was unrelieved by onxk-er-oevl treatments of her DuoNeb. In the interim, she describes reduced appetite and oral intake, orthopnea, and wheezing. She denies symptoms of PND. Upon presentation to the emergency department, she was placed on 4 L of oxygen nasal cannula in an effort to maintain oxygen saturation above 92%. She was noted to be tachypneic and as part of her immediate workup, underwent chest x-ray which revealedprogression in evidence of bilateral infiltrates. Chest CT scan was performed to rule out pulmonaryemboli, results of which are significant for no pulmonary embolism; however, there is diffuse, predominantly central ground-glass opacities with evidence of intralobular septal thickening. There is also evidence of slight increase in juli tissue which, given the setting of her exacerbation, could be reactive. As noted on prior imaging, there is evidence of severe emphysema. All other systems reviewed and negative, a 12 point ROS was performed. PAST MEDICAL HISTORY: Past Medical History Diagnosis Date ??? UTI [...] 03/01/2013 ??? COPD (chronic obstructive pulmonary disease) SOCIAL HISTORY: As described below History Social History ??? Marital Status: Spouse Name: N/A Number of Children: N/A ??? Years of Education: N/A Occupational History ??? None Social History Main Topics ??? Smoking status: Former Smoker -- 2.00 packs/day for 35 years Types: Cigarettes Quit date: 10/14/2010 ??? Smokeless tobacco: Never Used ??? Alcohol Use: No Comment: rarely ??? Drug Use: No Comment: no longer using. ??? Sexually Active: Yes -- Male partner(s) Other Topics Concern ??? Not on file Social History Narrative from [place] (ETOH) Son Alexi and Daughter Yadira Currently living alone in [facility] FAMILY HISTORY: Family History Problem Relation Age of Onset [...] Hx ??? Depression Brother ??? Depression Brother MEDICATION LIST: Current Facility-Administered Medications Medication Route Frequency ??? albuterol (ACCUNEB) nebulizer solution 2.5 mg nebulization Q2H PRN ??? HYDROcodone-acetaminophen (NORCO) 5-325 mg tablet 1-2 Tab oral Q6H PRN ??? ipratropium-albuterol (DUONEB) 0.5 mg-3 mg(2.5 mg base)/3 mL nebulizer solution 3 mL nebulization QID ??? NONFORMULARY MEDICATION 500 mcg oral DAILY Current Outpatient Prescriptions Medication Sig Dispense Refill [...] times daily. 3 Inhaler 3 ??? HYDROcodone-acetaminophen (LORTAB) 5-500 mg tablet Take 1 Tab by mouth every 6 hours as needed for Pain for 28 days. 112 Tab 0 ??? HYDROcodone-acetaminophen (LORTAB) 5-500 mg tablet Take 1 Tab by mouth every 6 hours as needed for Pain for 28 days. 112 Tab 0 ??? HYDROcodone-acetaminophen (NORCO) 5-325 [...] solution Take 3 mL by nebulization every 6 hours as needed for Wheezing. 2 Box 0 ??? levalbuterol (XOPENEX HFA) 45 mcg/actuation inhaler Take 2 puffs by mouth as needed for shortness of breath. 3 Inhaler 3 ??? [START ON 02/13/2014] methylphenidate (RITALIN;METHYLIN) 10 mg tablet Take one tab in the afternoon for narcolepsy. Earliest Fill Date: 02/13/14 30 Tab 0 ??? [START ON 02/13/2014] methylphenidate (RITALIN;METHYLIN) 20 mg tablet Take 2 Tabs by mouth daily.Earliest Fill Date: 02/13/14 60 Tab 0 ??? mometasone (NASONEX) 50 [...] as needed for Sleep. 30 Tab 5 Filed Vitals: 02/12/145 02/12/14205402/12/14 2100 02/12/14 2115 BP: 121/76 111/66 117/68 Pulse: Temp: TempSrc: Resp: 26 20 Height: Weight: SpO2: 92% 94% 90% 89% OBJECTIVE: Vitals are as described below. On exam, patient is alert and oriented x3, noted to be inmoderate respiratory distress. She is notably tachypneic with evidence of clubbing of the digits. Examination of the oral cavity reveals poor oral hygiene, poor dental hygiene, with a Mallampatti score of 1. There is no evidence of thrush. Nares are without evidence of erythema or mucus. Lung exam i s significant for widespread rhonchi and expiratory wheezing. There is prolonged expiratory phase. Cardiovascular exam is significant for regular rate and rhythm without any evidence of murmurs, rubs, or gallops. Abdomen obese, soft, nontender, bowel sounds present. There was no evidence of surgical scars. Extremities significant for +1 edema bilaterally, warm on exam with good pulses at the DT and PT. Neurological exam: The patient is alert and oriented x3, noted to be mildly anxious, moves all extremities. Gait was not fully assessed as she had to be assisted on ambulation. DATA: Pulmonary function test is significant for FVC of 2.23 liters, 64% predicted; FEV1 of 1.69 L,which is 62% predicted; FEV1 to FVC ratio of 96%, results of which are consistent with restriction,muscle weakness, or poor effort. Radiological evidence as described below. ASSESSMENT AND PLAN: This is a 52-year-old female with a past medical history of 30 years of smoking approximately 2 packs per day. The patient reports that she quit smoking approximately 1 year ago, and a pulmonary history significant for asthma with known triggers that include cat dander and cold air. She also has a history of chronic obstructive pulmonary disease with significant emphysema as noted on her radiological images. 1. Hypoxic Respiratory Failure: acute Likely explained by underlying COPD and diffuse B/L interstitial infiltrates + / - pulmonary edema. CTA chest negative for PE. 2. Bilateral asymmetrical ground glass infiltrates bilaterally: recurrent Her hypoxic respiratory failure is concerning given the evidence of diffuse bilateral ground-glass opacity. However, upon review of her radiological images from 2011 which later resolved on subsequent chest CT imaging, but once again there appears to be similar and more progression of bilateral infiltrates on CXR from 02/2013. It is unclear if the bilateral infiltrates present in February 2013 had improved in the interim and prior to this presentation or if such disease process has progressed over the year. Given her history, we are unable to identify any known exposures that could precipitate a respiratory exacerbation. However, given the radiological evidence of bilateral and diffuse ground-glass opacities, differentials would include hypersensitivity pneumonitis, MOT[employer] REPRESENTATIVE, pulmonary edema, chronic eosinophilic pneumonia or ILD of unknown etiology. 3. COPD exacerbation: acute. Has evidence of bronchospasm on chest exam. At this time, we would recommend the following: - IV Solu-Medrol q.6; Spiriva daily; Advair 2 puffs twice daily, 115 mcg; albuterol q.4 p.r.n.; DuoNeb q.4 scheduled. - We would also recommend continued aggressive diuresis in the event that her respiratory symptoms may be related to acute on chronic heart failure. - Repeat echocardiography to determine her ejection fraction, diastolic function, pulmonary artery systolic pressure. Consider continuating to cycle cardiac enzymes. We will continue to follow her clinically. Should patient continue to deteriorate clinically, we may have to consider an urgent bronchoscopy for direct visualization and for obtaining specimen. We will continue to follow with you. Nathaniel Hillman MD Pulmonary and Critical Care Fellow Felton Mcclure MD 06 52 PM / VALENTINE Johnston cn Confirmation: [id number] Dictation ID: [id number] I saw and examined the patient with the fellow / resident at the bedside. All the relevant imaging studies and laboratory tests were independently reviewed. I agree with the assessment and treatment plan as specified in the fellow / resident's note. Felton Mcclure MD Pulmonary, Critical Care and Sleep Medicine. documented in this encounter ED Notes * Kamila Woods RN - 02/12/2014 1901 EDT Pt remains sob, but now with stable spo2 and states is more comfortable than earlier. Pt for admit to medicine services-at bedside now. During interview,pt had episode vomiting with small amount bilious fluid out; dose zofran given now. * Victoria Casas RN - 02/12/2014 1709 EDT Transfer of care to CHRIS Treviño * Dave Pettit - 02/12/2014 1304 EDT 12 Lead EKG Performed by DAVE PETTIT and shown to Moi Min IV,*. * Victoria Casas RN - 02/12/2014 1217 EDT Blood drawn via saline lock per protocol, tiger, blue and green tube(s) sent to lab per order. * Moi Min IV, MD - 02/12/2014 1058 EDT DOS: 02/12/2014 Chief Complaint Patient presents with ??? Shortness of Breath Pt arrives via [facility] with c/o SOB that has increased over the past few days. Pt arrives with O2 sat on RA 78%. Pt placed on 4L NC. No audible wheezing noted.RT and Dr. Min at bedside. The patient is a 53 y.o. female who presents today with Shortness of Breath HPI Comments: I, Gina Martinez, am scribing for Moi Min IV,* while he/she is personally performing the service. Gina Martinez 02/12/2014 10:59 53 year old female with history of COPD and asthma presents with gradual onset shortness of breath,worsening over the past several days. Patient notes associated cough and intermittent fever. She denies arm or leg swelling, and chest pain. Patient notes no alcohol or drug use. No history of blood clot. Social history positive for prior tobacco use (quit 2010). The history is provided by the patient and medical records. Shortness of Breath Onset quality: Gradual Timing: Constant Progression: Worsening Associated symptoms: cough and fever Associated symptoms: no abdominal pain, no chest pain, no headaches and no rash Fever: Timing: Intermittent Risk factors: no recent alcohol use and no hx of PE/DVT Review of Systems Constitutional: Positive for fever and chills. HENT: Negative for neck stiffness. Respiratory: Positive for cough and shortness of breath. Cardiovascular: Negative for chest pain. Gastrointestinal: Negative for abdominal pain. Musculoskeletal: Negative for back pain. Skin: Negative for rash. Neurological: Negative for headaches. Psychiatric/Behavioral: Negative for confusion. All other systems reviewed and are negative. Past Medical History Diagnosis Date ??? UTI [...] 03/01/2013 ??? COPD (chronic obstructive pulmonary disease) Past Surgical History Procedure Laterality Date ??? Salpingectomy 1982 ectopic ??? Hysterectomy, vaginal menorrhagia ??? Shoulder arthroscopy 10/15 left, with acromioplasty ??? Gastric fundoplication 03/02/07 Aspen ??? Cervical spine surgery 12/31/08 discectomy, fusion C4-7 Dr Dewitt ??? Colonoscopy 07/29/09 repeat 10 years ??? Ankle fracture surgery 04/01/10 left ankle [facility] ??? Cyst incision and drainage 09/17/10 left cheek ??? Fine needle aspiration 09/19/10 left cheek ??? Cystoscopy 02/14/13 Allergies Allergen Reactions ??? Toradol (Ketorolac Tromethamine) Hives ??? Motrin (Ibuprofen) Itching History Substance Use Topics ??? Smoking status: [...] Hx ??? Depression Brother ??? Depression Brother Vital Signs Vitals Reassessment?: Yes Temp: 36 ??C (96.8 ??F) Temp src: Tympanic Pulse: 84 Heart Rate: 83 BPM Cardiac Rhythm: Normal sinus rhythm Resp: 20 SpO2: 94 % BP: 91/52 mmHg BP Device: BP Machine Patient Position: Lying left side BP Cuff Location: Right arm O2 Flow Rate (L/min): 2 l/min (back from walk) O2 Device: Nasal cannula Physical Exam Nursing note and vitals reviewed. Constitutional: She is oriented to person, place, and time. She appears well- developed and well-nourished. She appears distressed. HENT: Head: Normocephalic and atraumatic. Eyes: EOM are normal. Pupils are equal, round, and reactive to light. Right eye exhibits no discharge. Left eye exhibits no discharge. Neck: Normal range of motion. Neck supple. No JVD present. No tracheal deviation present. Cardiovascular: Normal rate, regular rhythm and normal heart sounds. No murmur heard. Pulmonary/Chest: Breath sounds normal. Tachypnea noted. She is in respiratory distress. She has no decreased breath sounds. She has no wheezes. She has no rales. Increased work of breathing. Hypoxic. Abdominal: Soft. She exhibits no distension. Musculoskeletal: She exhibits no edema. Neurological: She is alert and oriented to person, place, and time. Skin: No pallor. Psychiatric: She has a normal mood and affect. PORTABLE CHEST 1 VIEW Final result not shown here.: CT CHEST W CONTRAST (PE) PROTOCOL Final result not shown here.: CHEST PA AND LATERAL Final result not shown here.: ECHOCARDIOGRAM Final result not shown here.: CT CHEST (Canceled) CT CHEST W CONTRAST (Canceled) ECHOCARDIOGRAM LIMITED (Canceled) CHEST PA AND LATERAL (Canceled) Radiology orders: PORTABLE CHEST [address] CHEST W CONTRAST (PE) PROTOCOL CHEST PA AND LATERAL ECHOCARDIOGRAM Imaging Results CT CHEST W CONTRAST (PE) PROTOCOL (Final result) Result time: 02/12/14 16:20:[address] CHEST W CONTRAST Final result Narrative: CT CHEST W CONTRAST (PE) PROTOCOL 02/12/2014 2:24 PM SIGNS AND SYMPTOMS/COMMENTS: dyspnea Technique: A contrast-enhanced helical CT acquisition of the chest from apices through the lung bases was performed with a reconstructed slice thickness of 0.9 mm with overlapping 0.45 mm intervals following the intravenous administration of 75-100 cc of 370 mg% nonionic contrast injected at a rate of 4-5 cc/second. A small test bolus was used for image acquisition. Scans were reviewed on a dedicated PACS workstation for analysis. Comparison:June 15, 2012 Findings: Opacification of the pulmonary vasculature is good. No acute or chronic emboli are seen within the pulmonary arterial vasculature. Evaluation of the chest wall shows no soft tissue abnormalities. Evaluation of the mediastinum demonstrates prominent juli tissue in the mediastinum and right hilum, slightly increased compared to prior. There is slightly decreased attenuation of the cardiac apex and septum with respect to the lateral wall myocardium. There is no significant coronary artery calcification. Mild atherosclerosis is present in the aorta. Evaluation of the airways shows mild diffuse thickening. Evaluation of the lungs shows diffuse bilateral groundglass opacities which are predominantly central and with a slight the mid to lower lobe predominance. There is mild interlobular septal thickening as well as fissural prominence. There is severe emphysema Evaluation of the pleura shows mild left pleural thickening versus a small effusion. Evaluation of the upper abdomen shows clips from a prior Aspen fundoplication. A few of the clips project above the diaphragm. Evaluation of the bones shows partially visualized ACDF fusion hardware. Impression: 1. No evidence of pulmonary embolism. 2. Diffuse predominantly central as well as slight mid and lower lobe predominant groundglass opacities. Given evidence of interlobular septal thickening and fissural prominence, this may represent pulmonary edema. Other considerations include viral pneumonia or DIP if the patient is a current heavy smoker. 3. Slight interval increase of juli tissue, felt to be reactive. 4. Subtle decreased attenuation of the cardiac septum and apex with respect to the lateral wall myocardium. Although this finding is nonspecific and the patient lacks coronary calcifications, given the possibility of pulmonary edema within the chest, would recommend correlation with cardiac enzymes. 5. Severe emphysema. I have personally reviewed the images and the above interpretation and agree with the findings. Preliminary result Narrative: PRELIMINARY RESIDENT REPORT CT CHEST W CONTRAST (PE) PROTOCOL 02/12/2014 2:24 PM SIGNS AND SYMPTOMS/COMMENTS: dyspnea Technique: A contrast-enhanced helical CT acquisition of the chest from apices through the lung bases was performed with a reconstructed slice thickness of 0.9 mm with overlapping 0.45 mm intervals following the intravenous administration of 75-100 cc of 370 mg% nonionic contrast injected at a rate of 4-5 cc/second. A small test bolus was used for image acquisition. Scans were reviewed on a dedicated PACS workstation for analysis. Comparison:June 15, 2012 Findings: Opacification of the pulmonary vasculature is good. No acute or chronic emboli are seen within the pulmonary arterial vasculature. Evaluation of the chest wall shows no soft tissue abnormalities. Evaluation of the mediastinum demonstrates prominent juli tissue in the mediastinum and right hilum, slightly increased compared to prior. There is slightly decreased attenuation of the cardiac apex and septum with respect to the lateral wall myocardium. There is no significant coronary artery calcification. Mild atherosclerosis is present in the aorta. Evaluation of the airways shows mild diffuse thickening. Evaluation of the lungs shows diffuse bilateral groundglass opacities which are predominantly central and with a slight the mid to lower lobe predominance. There is mild interlobular septal thickening as well as fissural prominence. There is severe emphysema Evaluation of the pleura shows mild left pleural thickening versus a small effusion. Evaluation of the upper abdomen shows clips from a prior Aspen fundoplication. A few of the clips project above the diaphragm. Evaluation of the bones shows partially visualized ACDF fusion hardware. Impression: 1. No evidence of pulmonary embolism. 2. Diffuse predominantly central as well as slight mid and lower lobe predominant groundglass opacities. Given evidence of interlobular septal thickening and fissural prominence, this may represent pulmonary edema. Other considerations include viral pneumonia or DIP if the patient is a current heavy smoker. 3. Slight interval increase of juli tissue, felt to be reactive. 4. Subtle decreased attenuation of the cardiac septum and apex with respect to the lateral wall myocardium. Although this finding is nonspecific and the patient lacks coronary calcifications, given the possibility of pulmonary edema within the chest, would recommend correlation with cardiac enzymes. 5. Severe emphysema. I have personally reviewed the images and the above interpretation and agree with the findings. Preliminary result Narrative: PRELIMINARY RESIDENT REPORT CT CHEST W CONTRAST (PE) PROTOCOL 02/12/2014 2:24 PM SIGNS AND SYMPTOMS/COMMENTS: dyspnea Technique: A contrast-enhanced helical CT acquisition of the chest from apices through the lung bases was performed with a reconstructed slice thickness of 0.9 mm with overlapping 0.45 mm intervals following the intravenous administration of 75-100 cc of 370 mg% nonionic contrast injected at a rate of 4-5 cc/second. A small test bolus was used for image acquisition. Scans were reviewed on a dedicated PACS workstation for analysis. Comparison:June 15, 2012 Findings: Opacification of the pulmonary vasculature is good. No acute or chronic emboli are seen within the pulmonary arterial vasculature. Evaluation of the chest wall shows no soft tissue abnormalities. Evaluation of the mediastinum demonstrates prominent juli tissue in the mediastinum and right hilum, slightly increased compared to prior. There is slightly decreased attenuation of the cardiac apex and septum with respect to the lateral wall myocardium. There is no significant coronary artery calcification. Mild atherosclerosis is present in the aorta. Evaluation of the airways shows mild diffuse thickening. Evaluation of the lungs shows diffuse bilateral groundglass opacities which are predominantly central and with a slight the mid to lower lobe predominance. There is mild interlobular septal thickening as well as fissural prominence. There is severe emphysema Evaluation of the pleura shows mild left pleural thickening versus a small effusion. Evaluation of the upper abdomen shows clips from a prior Aspen fundoplication. A few of the clips project above the diaphragm. Evaluation of the bones shows partially visualized ACDF fusion hardware. Impression: 1. No evidence of pulmonary embolism. 2. Diffuse predominantly central as well as slight mid and lower lobe predominant groundglass opacities. Given the evidence of intralobular septal thickening and fissural prominence, this may represent pulmonary edema. Other considerations include viral pneumonia. If the patient is a heavy smoker, DIP could be considered. 3. Slight interval increase of juli tissue, felt to be reactive. 4. Subtle decreased attenuation of the cardiac septum and apex with respect to the lateral wall myocardium. This is nonspecific, however correlate with cardiac enzymes. 5. Severe emphysema. PORTABLE CHEST 1 VIEW (Final result) Result time: 02/12/14 11:25:34 Final result Narrative: PORTABLE CHEST 1 VIEW 02/12/2014 11:16 AM Signs and Symptoms/Comments: DYSPNEA Comparison: 01/04/2009, 04/05/2012 and 02/26/2013 Findings: The patient as once again developed fairly widespread interstitial and airspace opacities that are worse in the lower lung zones. Although no definite Hunter B-lines are identified, the recurrent nature suggests pulmonary edema. The cardiac silhouette is normal in size. No evidence of pleural fluid or pneumothorax is visible on this nearly erect study. The patient has had lower anterior cervical spine fusion. Impression: Likely pulmonary edema Preliminary result Narrative: PRELIMINARY REPORT PORTABLE CHEST 1 VIEW 02/12/2014 11:16 AM Signs and Symptoms/Comments: DYSPNEA Comparison: 01/04/2009, 04/05/2012 and 02/26/2013 Findings: The patient as once again developed fairly widespread interstitial and airspace opacities that are worse in the lower lung zones. Although no definite Hunter B-lines are identified, the recurrent nature suggests pulmonary edema. The cardiac silhouette is normal in size. No evidence of pleural fluid or pneumothorax is visible on this nearly erect study. The patient has had lower anterior cervical spine fusion. Impression: Likely pulmonary edema Laboratory studies were obtained, reviewed, and interpreted by myself. Xray obtained, reviewed by myself, interpreted by the radiologist, please see radiology report for further details. CT obtained, reviewed by myself, interpreted by the radiologist, please see radiology report for further details. EKG 12-LEAD Final Result: Procedures ED Course: A medical screening exam was performed. I, Moi Min IV, MD, have utilized a scribe to help in the preparation of this note. I have reviewed and agree with the scribe's note and I have made modifications as necessary. 53 year old female presents with gradual onset shortness of breath over the past few days. Patient given nebulizer by EMS en route to ED. Not wheezing on arrival, but still hypoxic. Baseline O2 sat 97% on room air; patient at 83-93% on nasal cannula on arrival. Patient given tylenol, and lasix. Creatinine 0.46, INR 1.2. Chest xray indicative of pulmonary edema. Chest CT shows diffuse mid and lower lobe groundglass opacities, severe emphysema, possible pulmonary edema; no evidence of pulmonary embolism. Patient given norco, and solu-medrol. EKG: Normal sinus rhythm, no acute ischemia, reviewed and interpreted by myself at time of patient care and disposition. Patient admitted to the care of VINCENT PECK in medicine. Disposition: Admitted The patient's pain was managed to an adequate level weighing risk vs. benefit of further medications. Upon departure from the Emergency Department, the patient's pain was 0 on a zero to ten scale. Condition at departure from the Emergency Department: Stable Discharge Medication List as of 02/16/2014 13:11 START taking these medications Details predniSONE (DELTASONE) 10 mg tablet 40 mg (4 pills) x3d, 30 mg (3 pills) x3d, 20 mg (2 pills) x3d, 10 mg (1 pill) x3d, 5 mg (1/2 pill) x2d.., Disp-31 Tab, R-0, Normal CONTINUE these medications which have CHANGED Details ipratropium-albuterol (DUONEB) 0.5 mg-3 mg(2.5 mg base)/3 mL nebulizer solution Take 3 mL by nebulization every 4 hours as needed for Wheezing., Disp-3 mL, R-3, Wheezing, Normal CONTINUE these medications which have NOT CHANGED Details baclofen (LIORESAL) 10 mg tablet Take 1 Tab by mouth 3 times daily as needed (mucles tightness)., Disp-180 Tab, R-0, mucles tightnessPlease cancel prior refillsNormal cycloSPORINE (RESTASIS) 0.05 % ophthalmic emulsion Place 1 Drop into both eyes 2 times daily., Disp-2 Tray, R-11, Normal docusate sodium (COLACE) 100 mg capsule Take 1 Cap by mouth 2 times daily as needed for Constipation., 100 mg, Oral, 2 TIMES DAILY PRN Starting 09/24/2010, Until Discontinued, OTC doxycycline (VIBRA-TABS) 100 mg tablet Take 1 Tab by mouth daily., Disp-90 Tab, R-3Please cancel prior refillsNormal fexofenadine (JUDITH) 180 mg tablet Take 1 Tab by mouth daily., Disp-90 Tab, R- 3, Normal fluticasone-salmeterol (ADVAIR HFA) 230-21 mcg/actuation inhaler Inhale 2 Puffs as directed 2 timesdaily., Disp-3 Inhaler, R-3Please cancel prior refillsNormal HYDROcodone-acetaminophen (NORCO) 5-325 mg tablet Take 1-2 Tabs by mouth every 6 hours as needed for 28 days for Pain., Disp-112 Tab, R-0, Pain, Print hydroxypropyl methylcellulose (ISOPTO TEARS) 0.5 % ophthalmic solution Place 1 Drop into both eyes 5 times daily., 1 Drop, Both Eyes, 5 TIMES DAILY Starting 12/10/2010, Until Discontinued, Historical Med levalbuterol (XOPENEX HFA) 45 mcg/actuation inhaler Take 2 puffs by mouth as needed for shortness of breath., Disp-3 Inhaler, R-3Please cancel prior refillsNormal !! methylphenidate (RITALIN;METHYLIN) 10 mg tablet Take one tab in the afternoon for narcolepsy. Earliest Fill Date: 02/13/14, Disp-30 Tab, R-0, Print !! methylphenidate (RITALIN;METHYLIN) 20 mg tablet Take 2 Tabs by mouth daily. Earliest Fill Date: 02/13/14, Disp-60 Tab, R-0, Print mometasone (NASONEX) 50 mcg/actuation nasal spray 2 Sprays by nasal route daily., Disp-3 Inhaler, R-3Please cancel prior refillsNormal montelukast (SINGULAIR) 10 mg tablet Take 1 Tab by mouth daily., Disp-90 Tab, R- 3Please cancel prior refillsNormal nortriptyline (PAMELOR) 75 mg capsule Take 1 Cap by mouth daily., Disp-90 Each, R-3, Normal omeprazole (PRILOSEC) 40 mg capsule Take 1 Cap by mouth daily., Disp-180 Cap, R- 3Please cancel prior refillsNormal ondansetron (ZOFRAN) 4 mg tablet Take 1 Tab by mouth daily as needed for Nausea., Disp-30 Tab, R-1,Nausea, Normal pregabalin (LYRICA) 150 mg capsule Take 1 Cap by mouth 3 times daily., Disp-270 Each, R-1, Print rOPINIRole (REQUIP) 2 mg tablet Take 1 Tab by mouth at bedtime., Disp-90 Tab, R- 3Please cancel prior refillsNormal sertraline (ZOLOFT) 100 mg tablet Take 2 Tabs by mouth daily., Disp-180 Tab, R- 3Please cancel priorrefillsNormal sumatriptan (IMITREX) 50 mg tablet Take 1 Tab by mouth once as needed for 1 dose for Migraine., Disp-9 Tab, R-1, MigrainePlease cancel prior refillsNormal tamsulosin (FLOMAX) 0.4 mg capsule Take one capsule by mouth every day (take it half an hour after supper), Disp-90 Cap, R-1, Phone In tiotropium (SPIRIVA WITH HANDIHALER) 18 mcg inhalation capsule Inhale 1 Cap as directed daily., Disp-90 Cap, R-3Please cancel prior refillsNormal zolpidem (AMBIEN) 5 mg tablet Take 1 Tab by mouth at bedtime as needed for Sleep., Disp-30 Tab, R-5, SleepPlease cancel prior refillsPrint !! - Potential duplicate medications found. Please discuss with provider. MDM Number of Diagnoses or Management Options Asthma: COPD (chronic obstructive pulmonary disease): COPD exacerbation: Hypoxia: ILD (interstitial lung disease): Diagnosis management comments: 5 Final diagnoses: Hypoxia COPD exacerbation PCP: Moi Munoz MD 02/20/2014 15:13 documented in this encounter Miscellaneous Notes * Plan of Care - Yajaira Monterroso RN - 02/16/2014 0443 EDT Problem: PAIN Goal: Patient???s pain/discomfort is manageable/tolerable Data: Pt reports chronic back pain. Pt rates pain 7-8/10. Action: Pt medicated with Penasco x 2 and baclofen x 1. Response: Pt rates pain 4/10 on reassessment. Will continue to monitor. Yajaira Monterroso RN 02/16/2014 4:39 * Plan of Care - Puja Chapa RN - 02/15/2014 1032 EDT Problem: RESPIRATORY FUNCTION/OXYGENATION Goal: Patient Will Maintain Patent Airway Intervention: Assess breath sounds in all lobes Data: Pt admitted with COPD exacerbation. Upon receiving care of pt, on 4L oxygen via nasal canula.Pt with expiratory wheezes & rhonchi upon assessment. Order in place to titrate oxygent to 88-92%. Action: Assess lung sounds. Wean oxygen. Monitor oxygenation status. Response: Pt was satting @ 98% on 4L. Pt weaned slowly off of oxygen, no episodes of desaturation noted. Pt on room air with O2 sat 89% while asleep at this time. Puja Chapa RN 02/15/2014 10:29 * Plan of Care - Yvonne Doty RN - 02/15/2014 0452 EDT Problem: RESPIRATORY FUNCTION/OXYGENATION Goal: Patient Will Maintain Patent Airway Data: Pt admitted with COPD exacerbation. Denies SOB at rest, RR 20, SpO2 96% on 4L NC. LS with expiratory wheezes. ALEJANDRE with movement/ ambulation. Action: Monitored respiratory status. IV Solu-medrol Q 6 hrs. Pt receiving nebs per RT. Response: Pt currently sleeping, VSS, no resp distress noted. Will continue to monitor. Yvonne Doty RN 02/15/2014 4:49 * Plan of Care - Susan Parada RN - 02/14/2014 2236 EDT Problem: MOBILITY Goal: Mobility/Activity Is Maintained At Optimum Level For Patient Outcome: Ongoing Data: Patient states she has not ambulated much since she was admitted. Patient's room being moved for patient's needs. Action: Patient walked to new room with contact guard assist, a distance of about 70 feet, with wheelchair following and using the wall rail for assistance. Tolerated fairly. Response: CTM patient. Susan Parada RN 02/14/2014 22:33 * Plan of Care - Landy Johnson RN - 02/14/2014 6164 EDT Problem: MOBILITY Goal: Mobility/Activity Is Maintained At Optimum Level For Patient Outcome: Ongoing Data: Pt admit w COPD exacerbation- becomes very dyspneic w minimal exertion. O2 at 4L via NC Action: Pt OOB to bedside commode w guard assist. Hygiene care done at that time w assist. Response: Pt felt she was able to tolerate activity-was exhausting. Did have some increase dyspnea w exertion but was able to rest/nap once returned to bed.O2 sats. Remained stable. Continue to assess/monitor resp status. Increase activity/mobility as tolerated. Landy Johnson RN 02/14/2014 17:46 * Plan of Care - Leah Cuellar RN - 02/14/2014 0504 EDT Problem: RESPIRATORY FUNCTION/OXYGENATION Goal: Patient Will Maintain Patent Airway Intervention: Assess breath sounds in all lobes Data: Patient admitted with a COPD exacerbation. The patient becomes very dsypnic with minimal movement. Patient on 4L NC. Lungs sounds wheezy. Action: Provided patient info to help her conserve her energy for tasks. Encouraged her to participate in RT/PT. Response: Patient remains dyspneic with minimal activity. LEAH CUELLAR RN 02/14/2014 5:00 * Plan of Care - Nicki Brady - 02/13/2014 7669 EDT Problem: ELIMINATION Goal: Patient???s Usual Bowel Function Is Maintained Intervention: Identify and document patient???s unusual bowel function Data: Pt resting in bed, VS stable. ALEJANDRE. IV lasix and given per MD, order to place magallon received. Action: Magallon placed. S I+O. Response: Tolerated well, magallon draining clear yellow urine. Nicki Brady RN 02/13/2014 17:37 * Plan of Care - Candy Da Silva RN - 02/13/2014 0437 EDT Problem: HOSPITAL ORIENTATION/SAFETY Goal: Oriented To Hospital Environment Data: Pt was admitted from the ED at around 2200 last night with hypoxia and COPD exacerbation. Pt is on 4L of O2, and pt does not usually have O2 at home. Action: Pt was oriented to the hospital, given her HS meds and put to bed. Response: Pt has been resting comfortably w/o complaints and will continue to be monitored. Candy Da Silva RN 02/13/2014 4:33 documented in this encounter Plan of Treatment Upcoming Encounters Date Type Department Care Team (Late st Contact Info) Description 06/29/2024 14:15 EDT Office Visit [address] [address] Moi Munoz MD [address] [place] [address] Pending Results Name Type Priority Associated Diagnoses Date /Time HOLD GREEN TOP Lab Routine 02/15/2014 8:34 EDT Scheduled Orders Name Type Priority Associated Diagnoses Orde r Schedule HOLD GREEN TOP Lab Routine One Time f or 1 Occurrences starting 02/15/2014 until 02/15/2014 Scheduled Referrals Name Type Priority Associated Diagnoses Orde r Schedule AMB CONS/FOLLOW UP PULMONARY Outpatient Referral Routine COPD exacerbation ([facility]) ([facility]) Hypoxia ILD (interstitial lung disease) ([facility]) Ordered: 02/15/2014 FROM IP - AMB CONS/FOLLOW UP HOME HEALTH SERVICES Outpatient Referral Routine Hypoxia COPD exacerbation ([facility]) ([facility]) ILD (interstitial lung disease) ([facility]) Ordered: 02/16/2014 documented as of this encounter Procedures Procedure Name Priority Date/Time Associated Diagnosis Comments GLUCOSE, GLUCOMETER Routine 02/16/2014 9 :20 EDT CHEST PA AND LATERAL Routine 02/16/2014 8:43 EDT DIFFERENTIAL Routine 02/16/2014 7:38 EDT COMPLETE BLOOD COUNT Routine 02/16/2014 7:38 EDT COMPLETE BLOOD COUNT AND DIFFERENTIAL Routine 02/16/2014 7:38 EDT BUN Routine 02/16/2014 7:38 EDT CREATININE Routine 02/16/2014 7:38 EDT ELECTROLYTES Routine 02/16/2014 7:38 EDT NEBULIZER TX INTERMITTENT Routine 02/16/2014 4:44 EDT NEBULIZER TX INTERMITTENT Routine 02/16/2014 4:44 EDT DRY POWDERED OR METERED DOSE INHALER Routine 02/16/2014 0:05 EDT DRY POWDERED OR METERED DOSE INHALER Routine 02/16/2014 0:05 EDT NEBULIZER TX INTERMITTENT Routine 02/16/2014 0:05 EDT GLUCOSE, GLUCOMETER Routine 02/15/2014 2 0:56 EDT GLUCOSE, GLUCOMETER Routine 02/15/2014 1 7:58 EDT EVAL FOR HOME OXYGEN USE Routine 02/15/2014 16:56 EDT GLUCOSE, GLUCOMETER Routine 02/15/2014 1 4:13 EDT ECG REPORT - SCANNED 02/15/2014 10:55 EDT GLUCOSE, GLUCOMETER Routine 02/15/2014 9 :28 EDT DIFFERENTIAL Routine 02/15/2014 8:34 EDT COMPLETE BLOOD COUNT Routine 02/15/2014 8:34 EDT COMPLETE BLOOD COUNT AND DIFFERENTIAL Routine 02/15/2014 8:34 EDT BUN Routine 02/15/2014 8:34 EDT CREATININE Routine 02/15/2014 8:34 EDT ELECTROLYTES Routine 02/15/2014 8:34 EDT NEBULIZER TX INTERMITTENT Routine 02/15/2014 0:05 EDT DRY POWDERED OR METERED DOSE INHALER Routine 02/15/2014 0:05 EDT DRY POWDERED OR METERED DOSE INHALER Routine 02/15/2014 0:05 EDT DRY POWDERED OR METERED DOSE INHALER Routine 02/15/2014 0:05 EDT NEBULIZER TX INTERMITTENT Routine 02/15/2014 0:05 EDT NEBULIZER TX INTERMITTENT Routine 02/15/2014 0:05 EDT NEBULIZER TX INTERMITTENT Routine 02/15/2014 0:05 EDT NEBULIZER TX INTERMITTENT Routine 02/15/2014 0:05 EDT NEBULIZER TX INTERMITTENT Routine 02/15/2014 0:05 EDT GLUCOSE, GLUCOMETER Routine 02/14/2014 2 1:39 EDT GLUCOSE, GLUCOMETER Routine 02/14/2014 1 8:30 EDT GLUCOSE, GLUCOMETER Routine 02/14/2014 1 2:52 EDT GLUCOSE, GLUCOMETER Routine 02/14/2014 7 :56 EDT NEBULIZER TX INTERMITTENT Routine 02/14/2014 7:20 EDT NEBULIZER TX INTERMITTENT Routine 02/14/2014 7:20 EDT NEBULIZER TX INTERMITTENT Routine 02/14/2014 7:20 EDT NEBULIZER TX INTERMITTENT Routine 02/14/2014 7:20 EDT NEBULIZER TX INTERMITTENT Routine 02/14/2014 7:20 EDT DIFFERENTIAL Routine 02/14/2014 7:11 EDT COMPLETE BLOOD COUNT Routine 02/14/2014 7:11 EDT COMPLETE BLOOD COUNT AND DIFFERENTIAL Routine 02/14/2014 7:11 EDT BUN Routine 02/14/2014 7:11 EDT CREATININE Routine 02/14/2014 7:11 EDT ELECTROLYTES Routine 02/14/2014 7:11 EDT DRY POWDERED OR METERED DOSE INHALER Routine 02/14/2014 0:05 EDT DRY POWDERED OR METERED DOSE INHALER Routine 02/14/2014 0:05 EDT DRY POWDERED OR METERED DOSE INHALER Routine 02/14/2014 0:05 EDT GLUCOSE, GLUCOMETER Routine 02/13/2014 2 0:57 EDT GLUCOSE, GLUCOMETER Routine 02/13/2014 1 7:57 EDT GLUCOSE, GLUCOMETER Routine 02/13/2014 1 2:24 EDT ECHOCARDIOGRAM Routine 02/13/2014 11:51 EDT GLUCOSE, GLUCOMETER Routine 02/13/2014 9 :11 EDT DIFFERENTIAL Routine 02/13/2014 6:19 EDT COMPLETE BLOOD COUNT Routine 02/13/2014 6:19 EDT COMPLETE BLOOD COUNT AND DIFFERENTIAL Routine 02/13/2014 6:19 EDT BUN Routine 02/13/2014 6:19 EDT CREATININE Routine 02/13/2014 6:19 EDT ELECTROLYTES Routine 02/13/2014 6:19 EDT DRY POWDERED OR METERED DOSE INHALER Routine 02/13/2014 0:05 EDT DRY POWDERED OR METERED DOSE INHALER Routine 02/13/2014 0:05 EDT DRY POWDERED OR METERED DOSE INHALER Routine 02/13/2014 0:05 EDT NEBULIZER TX INTERMITTENT Routine 02/13/2014 0:05 EDT NEBULIZER TX INTERMITTENT Routine 02/13/2014 0:05 EDT NEBULIZER TX INTERMITTENT Routine 02/13/2014 0:05 EDT NEBULIZER TX INTERMITTENT Routine 02/13/2014 0:05 EDT DRY POWDERED OR METERED DOSE INHALER Routine 02/12/2014 22:39 EDT GLUCOSE, GLUCOMETER Routine 02/12/2014 2 2:10 EDT INPATIENT ADD-ON STAT 02/12/2014 19:1 5 EDT NEBULIZER TX INTERMITTENT Routine 02/12/2014 17:54 EDT ZZBLOOD GAS, G3 ISTAT Routine 02/12/2014 15:[address] CHEST (PE) PROTOCOL W CONTRAST 02/12/2014 14:24 EDT ED/URGENT CARE ADD-ON STAT 02/12/2014 13:50 EDT EKG 12-LEAD STAT 02/12/2014 13:02 EDT SCREENING GLUCOSE STAT 02/12/2014 12: 14 EDT TROPONIN I STAT 02/12/2014 12:14 EDT PTT STAT 02/12/2014 12:14 EDT PROTIME STAT 02/12/2014 12:14 EDT BUN STAT 02/12/2014 12:14 EDT ALT Routine 02/12/2014 12:14 EDT AST Routine 02/12/2014 12:14 EDT ALKALINE PHOSPHATASE Routine 02/12/2014 12:14 EDT NT PRO BNP Routine 02/12/2014 12:14 EDT MAGNESIUM STAT 02/12/2014 12:14 EDT LIPASE Routine 02/12/2014 12:14 EDT CREATININE STAT 02/12/2014 12:14 EDT CK MB WITH TOTAL CK STAT 02/12/2014 1 2:14 EDT BILIRUBIN, TOTAL Routine 02/12/2014 12:1 4 EDT ELECTROLYTES STAT 02/12/2014 12:14 EDT PORTABLE CHEST 1 VIEW STAT 02/12/2014 11:16 EDT HOLD BLUE TOP STAT 02/12/2014 11:10 EDT REDRAW LABS Routine 02/12/2014 11:10 EDT SCREENING GLUCOSE STAT 02/12/2014 11: 10 EDT ED/URGENT CARE ADD-ON STAT 02/12/2014 11:10 EDT PROFILE ED CARDIAC PACK STAT 02/13/20 14 11:10 EDT SMEAR REVIEW Routine 02/12/2014 11:10 EDT TROPONIN I STAT 02/12/2014 11:10 EDT DIFFERENTIAL STAT 02/12/2014 11:10 EDT COMPLETE BLOOD COUNT STAT 02/12/2014 11:10 EDT BUN STAT 02/12/2014 11:10 EDT NT PRO BNP Routine 02/12/2014 11:10 EDT MAGNESIUM STAT 02/12/2014 11:10 EDT CREATININE STAT 02/12/2014 11:10 EDT CK MB WITH TOTAL CK STAT 02/12/2014 1 1:10 EDT ELECTROLYTES STAT 02/12/2014 11:10 EDT documented in this encounter Results * (ABNORMAL) GLUCOSE, GLUCOMETER (02/16/2014 9:20 EDT) Glucose, Fingerstick 128(H) 70 - 100 mg/dl [facility] Advertising Operations Coordinator ID [id number] [facility] Comment:Test Performed by [facility] 02/16/2014 9:20 EDT 02/16/2014 9:36 EDT Herminia Wetzel MD CHEMISTRY & BL OOD GAS ORDERABLES Performing Organization Address City/State/[facility] Co de Phone Number [facility] [address] [place] [address] * CHEST PA AND LATERAL (02/16/2014 8:43 EDT) Anatomical Region Laterality Modality Other 02/16/2014 8:43 EDT 02/16/2014 12:04 EDT Narrative 02/16/2014 12:04 EDT CHEST PA AND LATERAL ??02/16/2014 8:43 AM Clinical History/Comments: Re-evaluate ground glass opacities. Comparison: 02/12/2014. Findings: Two views of the chest were performed. ??Dual-energy technique with reconstructions in soft tissue and bone windows was used. Two views of the chest show stable fixation hardware in the lower cervical spine. ??The bones and soft tissues are unremarkable. ??There are surgical clips at the gastroesophageal junction. ??The cardiac and mediastinal contours are unremarkable. ??Since the prior examination, there has been interval improvement in the opacities throughout the lungs, with residual reticular opacities and some coalescent opacities in the basilar portion of the lungs. ??The improvement in this ??duration of time suggests improvement in hydrostatic edema, although improved pneumonia is also a possibility. ??No pleural abnormalities are visible. Procedure Note 02/16/2014 CHEST PA AND LATERAL 02/16/2014 8:43 AM Clinical History/Comments: Re-evaluate ground glass opacities. Comparison: 02/12/2014. Findings: Two views of the chest were performed. Dual-energy technique with reconstructions in soft tissue and bone windows was used. Two views of the chest show stable fixation hardware in the lower cervical spine. The bones and soft tissues are unremarkable. There are surgical clips at the gastroesophageal junction. The cardiac and mediastinal contours are unremarkable. Since the prior examination, there has been interval improvement in the opacities throughout the lungs, with residual reticular opacities and some coalescent opacities in the basilar portion of the lungs. The improvement in this duration of time suggests improvement in hydrostatic edema, although improved pneumonia is also a possibility. No pleural abnormalities are visible. Esha Hahn MD MPH IMG DIAGNOSTIC IMAGING ORDERABLES * (ABNORMAL) DIFFERENTIAL (02/16/2014 7:38 EDT) % Neutrophils 70.5 45.5 - 79.7 % [facility] % Lymphocytes 20.3 15.0 - 46.8 % [facility] % Monocytes 8.9 1.8 - 12.0 % [facility] % Eosinophils 0.1(L) 0.6 - 6.9 % [facility] % Basophils 0.2 0.2 - 1.4 % [facility] ABS Neutrophils 7.91 2.20 - 8.85 K/cmm [facility] ABS Lymphs 2.27 1.09 - 3.30 K/cmm [facility] ABS Monocytes 1.00(H) 0.1 - 0.8 K/cmm [facility] ABS Eosinophils 0.01(L) 0.03 - 0.61 K/cmm [facility] ABS Basophils 0.02 0.01 - 0.11 K/cmm [facility] Type of Diff: Automated [facility] 02/16/2014 7:38 EDT 02/16/2014 7:50 EDT Anshu Elizabeth MD HEMATOLOGY & PF4 ORD ERABLES Performing Organization Address City/[facility] Co de Phone Number [facility] [address] [place] [address] * (ABNORMAL) HEMAGRAM (02/16/2014 7:38 EDT) WBC 11.21 4.0 - 12.4 K/cmm [facility] RBC 4.39 3.86 - 5.04 M/cmm [facility] Hemoglobin 13.5 11.6 - 15.2 gm/dl [facility] HCT 39.6 34.9 - 44.4 % [facility] MCV 90 81 - 98 fl [facility] MCH 30.8 26.7 - 33.3 pg [facility] MCHC 34.1 32.1 - 35.9 gm/dl [facility] PLT 373(H) 141 - 320 K/cmm [facility] RDW-CV 15.2(H) 11.7 - 14.6 % [facility] 02/16/2014 7:38 EDT 02/16/2014 7:50 EDT Anshu Elizabeth MD HEMATOLOGY & PF4 ORD ERABLES Performing Organization Address City/[facility] Co de Phone Number [facility] [address] [place] [address] * CREATININE (02/16/2014 7:38 EDT) Creatinine 0.60 0.52 - 1.04 mg/dl [facility] GFR, Calculated >60 >60 ml/min/1.7 3m2 [facility] Blood specimen (specimen) 02/16/2014 7:38 EDT 02/16/2014 7:50 EDT Anshu Elizabeth MD CHEMISTRY & BLOOD GA S ORDERABLES Performing Organization Address [facility] Co de Phone Number [facility] [address] [place] [address] * BUN (02/16/2014 7:38 EDT) BUN 26 10 - 26 mg/dl [facility] Blood specimen (specimen) 02/16/2014 7:38 EDT 02/16/2014 7:50 EDT Anshu Elizabeth MD CHEMISTRY & BLOOD GA S ORDERABLES Performing Organization Address [facility] Co de Phone Number [facility] [address] [place] [address] * ELECTROLYTES (02/16/2014 7:38 EDT) Sodium 138 136 - 145 mEq/L [facility] Potassium 3.5 3.5 - 5.0 mEq/L [facility] Chloride 96 96 - 110 mEq/L [facility] CO2 29 24 - 32 mEq/L [facility] Blood specimen (specimen) 02/16/2014 7:38 EDT 02/16/2014 7:50 EDT Anshu Elizabeth MD CHEMISTRY & BLOOD GA S ORDERABLES Performing Organization Address [facility] Co de Phone Number [facility] [address] [place] [address] * (ABNORMAL) GLUCOSE, GLUCOMETER (02/15/2014 20:56 EDT) Glucose, Fingerstick 238(H) 70 - 100 mg/dl [facility] Advertising Operations Coordinator ID [id number] [facility] Comment:Test Performed by [facility] 02/15/2014 20:5 6 EDT 02/15/2014 21:13 EDT Herminia Wetzel MD CHEMISTRY & BL OOD GAS ORDERABLES [facility] [address] [place] [address] * (ABNORMAL) GLUCOSE, GLUCOMETER (02/15/2014 17:58 EDT) Glucose, Fingerstick 235(H) 70 - 100 mg/dl [facility] Advertising Operations Coordinator ID [id number] [facility] Comment:Test Performed by [facility] 02/15/2014 17:5 8 EDT 02/15/2014 18:08 EDT Herminia Wetzel MD CHEMISTRY & BL OOD GAS ORDERABLES Performing Organization Address City/[facility] Co de Phone Number [facility] [address] [place] [address] * EVAL FOR HOME OXYGEN USE (02/15/2014 16:56 EDT) Narrative Keira Thornton II, RT - 02/15/2014 16:56 EDT Keira Thornton II, RT ? 02/15/2014 16:56 HOME 02 EVALUATION [address] Test / Interpretation Name: ??Maria Del Rosario [place] Date of : ??1960 DIAGNOSIS: ?? Dyspnea, COPD Exacerbation RESTING O2 TITRATION FLOW 0 ? SPO2 94 % ??% ??% ??% ??% ??% Walking with assistive device. TIME HR SPO2 LPM COMMENTS Standing 96 93 0 ?? 30 second 94 96 0 ?? 1 minute 98 92 0 ?? 1 min/30 sec 109 92 0 ?? 2 minutes 107 91 0 ?? 2 min/30 sec 108 92 0 ?? 3 minutes 112 93 0 ?? 3 min/30 sec 107 93 0 ?? 4 minutes 108 95 0 ?? 4 min/30 sec 110 95 0 ?? 5 minutes 112 93 0 ?? 5 minutes/30 sec 109 94 0 ?? 6 minutes 108 93 0 ?? Testing terminated prior to 6 minutes secondary to ?? . Distance walked ? 1200 Ft ?. ??Dyspnea scale: ??7 ??/10. RECOMMENDATIONS ?No oxygen indicated @ this time. ??Patient states it would be nice to have when I need it or when I feel SOB. Continuous ?. ??Flow rate: ? resting, ? exercise. Noncontinuous hours per day: ? Walking, ?sleeping, ? exercise program, ?other. Re-evaluate in ?month(s). ?? PCP: Moi Munoz MD Therapist Signature: Keira Thornton II, RT ? Expires: 02-17-2014 Procedure Note Keira Thornton II, RT - 02/15/2014 16:46 EDT HOME 02 EVALUATION 6 Minute Walk Test / Interpretation Name: Maria Del Rosario [place] Date of : 1960 DIAGNOSIS: Dyspnea, COPD Exacerbation RESTING O2 TITRATION FLOW 0 SPO2 94 % % % % % % Walking with assistive device. TIME HR SPO2 LPM COMMENTS Standing 96 93 0 30 second 94 96 0 1 minute 98 92 0 1 min/30 sec 109 92 0 2 minutes 107 91 0 2 min/30 sec 108 92 0 3 minutes 112 93 0 3 min/30 sec 107 93 0 4 minutes 108 95 0 4 min/30 sec 110 95 0 5 minutes 112 93 0 5 minutes/30 sec 109 94 0 6 minutes 108 93 0 Testing terminated prior to 6 minutes secondary to . Distance walked 1200 Ft . Dyspnea scale: 7 /10. RECOMMENDATIONS No oxygen indicated @ this time. Patient states itwould be nice to have when I need it or when I feel SOB. Continuous . Flow rate: resting, exercise. Noncontinuous hours per day: Walking, sleeping, exerciseprogram, other. Re-evaluate in month(s). PCP: Moi Munoz MD Therapist Signature: Keira Thornton II, RT Expires: 02-17-2014 Esha Hahn MD MPH RESPIRATORY CA RE ORDERABLES * (ABNORMAL) GLUCOSE, GLUCOMETER (02/15/2014 14:13 EDT) Glucose, Fingerstick 191(H) 70 - 100 mg/dl [facility] Advertising Operations Coordinator ID [id number] [facility] Comment:Test Performed by [facility] 02/15/2014 14:1 3 EDT 02/15/2014 14:15 EDT Herminia Wetzel MD CHEMISTRY & BL OOD GAS ORDERABLES Performing Organization Address [facility] de Phone Number [facility] [address] [place] [address] * ECG REPORT - SCANNED (02/15/2014 10:55 EDT) 02/15/2014 10:5 5 EDT Scan 2 [employer] PROCEDURE/MINOR GURU GICAL ORDERABLES * (ABNORMAL) GLUCOSE, GLUCOMETER (02/15/2014 9:28 EDT) Glucose, Fingerstick 222(H) 70 - 100 mg/dl [facility] Advertising Operations Coordinator ID [id number] [facility] Comment:Test Performed by [facility] 02/15/2014 9:28 EDT 02/15/2014 9:30 EDT Herminia Wetzel MD CHEMISTRY & BL OOD GAS ORDERABLES Performing Organization Address [facility] de Phone Number [facility] [address] [place] [address] * (ABNORMAL) DIFFERENTIAL (02/15/2014 8:34 EDT) % Neutrophils 86.9(H) 45.5 - 79.7 % [facility] % Lymphocytes 7.5(L) 15.0 - 46.8 % [facility] % Monocytes 5.2 1.8 - 12.0 % [facility] % Eosinophils 0.2(L) 0.6 - 6.9 % [facility] % Basophils 0.2 0.2 - 1.4 % [facility] ABS Neutrophils 9.33(H) 2.20 - 8.85 K/cmm [facility] ABS Lymphs 0.80(L) 1.09 - 3.30 K/cmm [facility] ABS Monocytes 0.55 0.1 - 0.8 K/cmm [facility] ABS Eosinophils 0.02(L) 0.03 - 0.61 K/cmm [facility] ABS Basophils 0.02 0.01 - 0.11 K/cmm [facility] Type of Diff: Automated [facility] 02/15/2014 8:34 EDT 02/15/2014 8:43 EDT Anshu Elizabeth MD HEMATOLOGY & PF4 ORD ERABLES Performing Organization Address [facility] Co de Phone Number [facility] [address] [place] [address] * (ABNORMAL) HEMAGRAM (02/15/2014 8:34 EDT) WBC 10.72 4.0 - 12.4 K/cmm [facility] RBC 4.43 3.86 - 5.04 M/cmm [facility] Hemoglobin 13.8 11.6 - 15.2 gm/dl [facility] HCT 40.7 34.9 - 44.4 % [facility] MCV 92 81 - 98 fl [facility] MCH 31.1 26.7 - 33.3 pg [facility] MCHC 33.9 32.1 - 35.9 gm/dl [facility] PLT 299 141 - 320 K/cmm [facility] RDW-CV 15.5(H) 11.7 - 14.6 % [facility] 02/15/2014 8:34 EDT 02/15/2014 8:43 EDT Anshu Elizabeth MD HEMATOLOGY & PF4 ORD ERABLES Performing Organization Address City/[facility] Co de Phone Number [facility] [address] [place] [address] * (ABNORMAL) CREATININE (02/15/2014 8:34 EDT) Creatinine 0.50(L) 0.52 - 1.04 mg/dl [facility] GFR, Calculated >60 >60 ml/min/1.7 3m2 [facility] Blood specimen (specimen) 02/15/2014 8:34 EDT 02/15/2014 8:43 EDT Anshu Elizabeth MD CHEMISTRY & BLOOD GA S ORDERABLES Performing Organization Address [facility] Co de Phone Number [facility] [address] [place] [address] * BUN (02/15/2014 8:34 EDT) BUN 21 10 - 26 mg/dl [facility] Blood specimen (specimen) 02/15/2014 8:34 EDT 02/15/2014 8:43 EDT Anshu Elizabeth MD CHEMISTRY & BLOOD GA S ORDERABLES Performing Organization Address [facility] Co de Phone Number [facility] [address] [place] [address] * ELECTROLYTES (02/15/2014 8:34 EDT) Sodium 141 136 - 145 mEq/L [facility] Potassium 4.2 3.5 - 5.0 mEq/L [facility] Chloride 99 96 - 110 mEq/L [facility] CO2 29 24 - 32 mEq/L [facility] Blood specimen (specimen) 02/15/2014 8:34 EDT 02/15/2014 8:43 EDT Anshu Elizabeth MD CHEMISTRY & BLOOD GA S ORDERABLES Performing Organization Address [facility] Co de Phone Number [facility] [address] [place] [address] * (ABNORMAL) GLUCOSE, GLUCOMETER (02/14/2014 21:39 EDT) Glucose, Fingerstick 174(H) 70 - 100 mg/dl [facility] Advertising Operations Coordinator ID [id number] [facility] Comment:Test Performed by [facility] 02/14/2014 21:3 9 EDT 02/14/2014 21:40 EDT Herminia Wetzel MD CHEMISTRY & BL OOD GAS ORDERABLES Performing Organization Address City/[facility] Co de Phone Number [facility] [address] [place] [address] * (ABNORMAL) GLUCOSE, GLUCOMETER (02/14/2014 18:30 EDT) Glucose, Fingerstick 268(H) 70 - 100 mg/dl [facility] Advertising Operations Coordinator ID [id number] [facility] Comment:Test Performed by [facility] 02/14/2014 18:3 0 EDT 02/14/2014 18:31 EDT Herminia Wetzel MD CHEMISTRY & BL OOD GAS ORDERABLES Performing Organization Address [facility] de Phone Number [facility] [address] [place] [address] * (ABNORMAL) GLUCOSE, GLUCOMETER (02/14/2014 12:52 EDT) Glucose, Fingerstick 224(H) 70 - 100 mg/dl [facility] Advertising Operations Coordinator ID [id number] [facility] Comment:Test Performed by [facility] 02/14/2014 12:5 2 EDT 02/14/2014 16:57 EDT Herminia Wetzel MD CHEMISTRY & BL OOD GAS ORDERABLES Performing Organization Address [facility] de Phone Number [facility] [address] [place] [address] * (ABNORMAL) GLUCOSE, GLUCOMETER (02/14/2014 7:56 EDT) Glucose, Fingerstick 201(H) 70 - 100 mg/dl [facility] Advertising Operations Coordinator ID [id number] [facility] Comment:Test Performed by [facility] 02/14/2014 7:56 EDT 02/14/2014 7:58 EDT Herminia Wetzel MD CHEMISTRY & BL OOD GAS ORDERABLES Performing Organization Address [facility] Co de Phone Number [facility] [address] [place] [address] * (ABNORMAL) DIFFERENTIAL (02/14/2014 7:11 EDT) % Neutrophils 87.7(H) 45.5 - 79.7 % [facility] % Lymphocytes 7.7(L) 15.0 - 46.8 % [facility] % Monocytes 4.4 1.8 - 12.0 % [facility] % Eosinophils 0.0(L) 0.6 - 6.9 % [facility] % Basophils 0.2 0.2 - 1.4 % [facility] ABS Neutrophils 10.44(H) 2.20 - 8.85 K/cmm [facility] ABS Lymphs 0.91(L) 1.09 - 3.30 K/cmm [facility] ABS Monocytes 0.52 0.1 - 0.8 K/cmm [facility] ABS Eosinophils 0.00(L) 0.03 - 0.61 K/cmm [facility] ABS Basophils 0.02 0.01 - 0.11 K/cmm [facility] Type of Diff: Automated [facility] 02/14/2014 7:11 EDT 02/14/2014 7:32 EDT Anshu Elizabeth MD HEMATOLOGY & PF4 ORD ERABLES [facility] [address] [place] [address] * (ABNORMAL) HEMAGRAM (02/14/2014 7:11 EDT) WBC 11.90 4.0 - 12.4 K/cmm [facility] RBC 4.11 3.86 - 5.04 M/cmm [facility] Hemoglobin 13.0 11.6 - 15.2 gm/dl [facility] HCT 37.5 34.9 - 44.4 % [facility] MCV 91 81 - 98 fl [facility] MCH 31.6 26.7 - 33.3 pg [facility] MCHC 34.6 32.1 - 35.9 gm/dl [facility] PLT 323(H) 141 - 320 K/cmm [facility] RDW-CV 15.5(H) 11.7 - 14.6 % [facility] 02/14/2014 7:11 EDT 02/14/2014 7:32 EDT Anshu Elizabeth MD HEMATOLOGY & PF4 ORD ERABLES Performing Organization Address [facility] de Phone Number [facility] [address] [place] [address] * CREATININE (02/14/2014 7:11 EDT) Creatinine 0.53 0.52 - 1.04 mg/dl [facility] GFR, Calculated >60 >60 ml/min/1.7 3m2 [facility] Blood specimen (specimen) 02/14/2014 7:11 EDT 02/14/2014 7:32 EDT Anshu Elizabeth MD CHEMISTRY & BLOOD GA S ORDERABLES Performing Organization Address [facility] de Phone Number [facility] [address] [place] [address] * BUN (02/14/2014 7:11 EDT) BUN 20 10 - 26 mg/dl [facility] Blood specimen (specimen) 02/14/2014 7:11 EDT 02/14/2014 7:32 EDT Anshu Elizabeth MD CHEMISTRY & BLOOD GA S ORDERABLES Performing Organization Address [facility] de Phone Number [facility] [address] [place] [address] * ELECTROLYTES (02/14/2014 7:11 EDT) Sodium 139 136 - 145 mEq/L [facility] Potassium 3.8 3.5 - 5.0 mEq/L [facility] Chloride 98 96 - 110 mEq/L [facility] CO2 28 24 - 32 mEq/L [facility] Blood specimen (specimen) 02/14/2014 7:11 EDT 02/14/2014 7:32 EDT Anshu Elizabeth MD CHEMISTRY & BLOOD GA S ORDERABLES Performing Organization Address [facility] Phone Number [facility] [address] [place] [address] * (ABNORMAL) GLUCOSE, GLUCOMETER (02/13/2014 20:57 EDT) Glucose, Fingerstick 203(H) 70 - 100 mg/dl [facility] Advertising Operations Coordinator ID [id number] [facility] Comment:Test Performed by [facility] 02/13/2014 20:5 7 EDT 02/13/2014 21:01 EDT Herminia Wetzel MD CHEMISTRY & BL OOD GAS ORDERABLES Performing Organization Address [facility] de Phone Number [facility] [address] [place] [address] * (ABNORMAL) GLUCOSE, GLUCOMETER (02/13/2014 17:57 EDT) Glucose, Fingerstick 204(H) 70 - 100 mg/dl [facility] Advertising Operations Coordinator ID [id number] [facility] Comment:Test Performed by [facility] 02/13/2014 17:5 7 EDT 02/13/2014 17:59 EDT Herminia Wetzel MD CHEMISTRY & BL OOD GAS ORDERABLES Performing Organization Address [facility] Co de Phone Number [facility] [address] [place] [address] * (ABNORMAL) GLUCOSE, GLUCOMETER (02/13/2014 12:24 EDT) Glucose, Fingerstick 180(H) 70 - 100 mg/dl [facility] Advertising Operations Coordinator ID [id number] [facility] Comment:Test Performed by [facility] 02/13/2014 12:2 4 EDT 02/13/2014 12:26 EDT Herminia Wetzel MD CHEMISTRY & BL OOD GAS ORDERABLES [facility] [address] [place] [address] * ECHOCARDIOGRAM (02/13/2014 11:51 EDT) Anatomical Region Laterality Modality Other 02/13/2014 11:5 1 EDT Narrative 02/13/2014 12:03 EDT *Interpreting Group:* *[facility]* [address] [place] [address] *STUDY CONCLUSIONS* Summary: 1. Left ventricle: The cavity size was normal. Wall thickness was normal. ?? Systolic function was normal. The estimated ejection fraction was 55-60%. ?? Wall motion was normal; there were no regional wall motion abnormalities. ?? Left ventricular diastolic function parameters were normal for the patient's ?? age. 2. Pulmonary arteries: Pulmonary systolic pressure was within the normal range. *PATIENT PRESENTATION* Height: ? 162.6cm (64in ) S/D Pressure: 122 / 58 Weight: ? 88.5kg (194.6lb ) BSA: ?2.03m^2 Test start time: ??11:10 AM. Test stop time: ??11:50 AM. REFERRING ?Moi Munoz ADMITTING ?Vincent Peck ATTENDING ?Herminia Wetzel PERFORMING ?? [facility], ORDERING ? Jonnie Elliott MD PERSONAL PROTECTION SPECIALIST ??Harriet Klein *PROCEDURE DATA* Procedure information: ??This study was interpreted by [facility] at [facility]. ??Study status: ??Routine. Transthoracic echocardiography. ??M-mode, complete 2D, complete spectral Doppler, and color Doppler. A Transthoracic Echocardiogram was performed. Scanning was performed from the parasternal, apical, subcostal, and suprasternal notch acoustic windows. Images were obtained using an TappnGo #10 cardiac ultrasound machine. Image quality was adequate. The study was technically limited due to body habitus. ??Study completion: ??The patient tolerated the procedure well. *INDICATIONS AND HISTORY* Indications: ?? Shortness of breath (786.05). *CARDIAC ANATOMY* Left ventricle: ??The cavity size was normal. Wall thickness was normal. Systolic function was normal. The estimated ejection fraction was 55-60%. Wall motion was normal; there were no regional wall motion abnormalities. Left ventricular diastolic function parameters were normal for the patient's age. Aortic valve: ?? Trileaflet; normal thickness leaflets. Mobility was not restricted. ??Doppler: ??Transvalvular velocity was within the normal range. There was no stenosis. ??No regurgitation. Aorta: ??Aortic root: The aortic root was normal in size. Mitral valve: ?? Structurally normal valve. ?? Mobility was not restricted. Doppler: ??Transvalvular velocity was within the normal range. There was no evidence for stenosis. ??No regurgitation. ?Peak gradient: 2.9mm Hg (D). Left atrium: ??The atrium was normal in size. Right ventricle: ??The cavity size was normal. Wall thickness was normal. Systolic function was normal. Pulmonic valve: ?Doppler: ??Transvalvular velocity was within the normal range. There was no evidence for stenosis. ??No regurgitation. Tricuspid valve: ?? Structurally normal valve. ?Doppler: ??Transvalvular velocity was within the normal range. There was no evidence for stenosis. Trivial regurgitation. Pulmonary artery: ?? Pulmonary systolic pressure was within the normal range. Right atrium: ??The atrium was normal in size. Pericardium: ??There was no pericardial effusion. Systemic veins: Inferior vena cava: The vessel was normal in size. *MEASUREMENT TABLES* 2D measurements ? Normal Left ventricle Area, ED, A4C ? 26.3 cm^2 ?? 17.7-47.3 Area, ES, A4C ? 15 cm^2 ?? 7.9-31.5 Fractional area change, A4C ? 43 % ?--------- Volume, ED, MOD, 1-plane ?79.4 ml ? --------- Volume, ES, MOD, 1-plane ?33.1 ml ? --------- Ejection fraction, MOD, 1-plane ? 58.4 % ?--------- Stroke volume, MOD, 1-plane ? 46.4 ml ? --------- Volume index, ED, MOD, 1-plane ?39 ml/m^2 --------- Volume index, ES, MOD, 1-plane ?16 ml/m^2 --------- Stroke index, MOD, 1-plane ?22.8 ml/m^2 --------- LVOT Diameter, S ? 20 mm ? --------- Area ? 3.1 cm^2 ?? --------- Aorta Root diameter, ED ? 28 mm ? --------- Ascending aorta anterior-posterior diameter, S ?26 mm ? --------- Left atrium Anterior-posterior dimension ?31 mm ? --------- Anterior-posterior dimension index ?1.52 cm/m^2 <2.2 Superior-inferior dimension, A4C ?31 mm ? 29-53 ?? M-mode measurements ? Normal Left ventricle LV internal dimension, ED ? 55.1 mm ? 37-56 LV internal dimension, ES ? 39.4 mm ? --------- Fractional shortening ?*28 % ?29- 45 LV posterior wall, ED ?7.9 mm ? 6-11 Septal/posterior wall ratio, ED ?0.9 ?--------- Relative wall thickness, ED ?0.3 ?<0.45 Volume, ED, Teichholz ?148 ml ? --------- Volume, ES, Teichholz ? 67.5 ml ? --------- Ejection fraction, Teichholz ? *54.4 % ?64-83 Volume index, ED, Teichholz ? 73 ml/m^2 --------- Volume index, ES, Teichholz ? 33 ml/m^2 --------- Wall mass ?148.4 g ?--------- Wall mass index ? 73 g/m^2 ??--------- Mass/height ? 0.91 g/cm ?? --------- Ventricular septum Septal thickness, ED ? 7.2 mm ? --------- ?? Doppler measurements ?Normal Left ventricle IVRT ?81 ms ? 60-100 Ea, lateral annulus, tissue Doppler ? 8.05 cm/s ?? --------- E/Ea, lateral annulus, tissue Doppler ? 10.6 ?--------- Mitral valve Peak E-wave velocity ?85.4 cm/s ?? --------- Peak A-wave velocity ?94.6 cm/s ?? --------- Deceleration time ?162 ms ? 150-230 Peak gradient, D ? 2.9 mm Hg ??--------- Peak E/A ratio ? 1 ?--------- Legend: Mean values are shown as u=mean value. Asterisk (*) polk values outside specified normal range. Electronically signed by Kadeem Montoya MD 02/13/2014 12:03 Procedure Note 02/13/2014 *Interpreting Group:* *[facility]* [address] [place] [address] *STUDY CONCLUSIONS* Summary: 1. Left ventricle: The cavity size was normal. Wall thickness was normal. Systolic function was normal. The estimated ejection fraction pns08-59%. Wall motion was normal; there were no regional wall motionabnormalities. Left ventricular diastolic function parameters were normal for thepatient's age. 2. Pulmonary arteries: Pulmonary systolic pressure was within the normalrange. *PATIENT PRESENTATION* Height: 162.6cm (64in ) S/D Pressure: 122 / 58 Weight: 88.5kg (194.6lb ) BSA: 2.03m^2 Test start time: 11:10 AM. Test stop time: 11:50 AM. REFERRING Moi Munoz ADMITTING Vincent Peck ATTENDING Herminia Wetzel [facility], ORDERING Jonnie Elliott MD PERSONAL PROTECTION SPECIALIST Harriet Klein *PROCEDURE DATA* Procedure information: This study was interpreted by [facility]. Study status: Routine.Transthoracic echocardiography. M-mode, complete 2D, complete spectral Doppler, andcolor Doppler. A Transthoracic Echocardiogram was performed. Scanning wasperformed from the parasternal, apical, subcostal, and suprasternal notch acoustic windows. Images were obtained using an Epiq #10 cardiac ultrasoundmachine. Image quality was adequate. The study was technically limited due to body habitus. Study completion: The patient tolerated the procedure well. *INDICATIONS AND HISTORY* Indications: Shortness of breath (786.05). *CARDIAC ANATOMY* Left ventricle: The cavity size was normal. Wall thickness was normal.Systolic function was normal. The estimated ejection fraction was 55-60%. Wallmotion was normal; there were no regional wall motion abnormalities. Left ventricular diastolic function parameters were normal for the patient's age. Aortic valve: Trileaflet; normal thickness leaflets. Mobility was not restricted. Doppler: Transvalvular velocity was within the normal range.There was no stenosis. No regurgitation. Aorta: Aortic root: The aortic root was normal in size. Mitral valve: Structurally normal valve. Mobility was not restricted. Doppler: Transvalvular velocity was within the normal range. There was no evidence for stenosis. No regurgitation. Peak gradient: 2.9mm Hg (D). Left atrium: The atrium was normal in size. Right ventricle: The cavity size was normal. Wall thickness was normal. Systolic function was normal. Pulmonic valve: Doppler: Transvalvular velocity was within the normalrange. There was no evidence for stenosis. No regurgitation. Tricuspid valve: Structurally normal valve. Doppler: Transvalvular velocity was within the normal range. There was no evidence for stenosis. Trivial regurgitation. Pulmonary artery: Pulmonary systolic pressure was within the normalrange. Right atrium: The atrium was normal in size. Pericardium: There was no pericardial effusion. Systemic veins: Inferior vena cava: The vessel was normal in size. *MEASUREMENT TABLES* 2D measurements Normal Left ventricle Area, ED, A4C 26.3 cm^2 17.7-47.3 Area, ES, A4C 15 cm^2 7.9-31.5 Fractional area change, A4C 43 % --------- Volume, ED, MOD, 1-plane 79.4 ml --------- Volume, ES, MOD, 1-plane 33.1 ml --------- Ejection fraction, MOD, 1-plane 58.4 % --------- Stroke volume, MOD, 1-plane 46.4 ml --------- Volume index, ED, MOD, 1-plane 39 ml/m^2 --------- Volume index, ES, MOD, 1-plane 16 ml/m^2 --------- Stroke index, MOD, 1-plane 22.8 ml/m^2 --------- LVOT Diameter, S 20 mm --------- Area 3.1 cm^2 --------- Aorta Root diameter, ED 28 mm --------- Ascending aorta anterior-posterior diameter, S 26 mm --------- Left atrium Anterior-posterior dimension 31 mm --------- Anterior-posterior dimension index 1.52 cm/m^2 <2.2 Superior-inferior dimension, A4C 31 mm 29-53 M-mode measurements Normal Left ventricle LV internal dimension, ED 55.1 mm 37-56 LV internal dimension, ES 39.4 mm --------- Fractional shortening *28 % 29-45 LV posterior wall, ED 7.9 mm 6-11 Septal/posterior wall ratio, ED 0.9 --------- Relative wall thickness, ED 0.3 <0.45 Volume, ED, Teichholz 148 ml --------- Volume, ES, Teichholz 67.5 ml --------- Ejection fraction, Teichholz *54.4 % 64-83 Volume index, ED, Teichholz 73 ml/m^2 --------- Volume index, ES, Teichholz 33 ml/m^2 --------- Wall mass 148.4 g --------- Wall mass index 73 g/m^2 --------- Mass/height 0.91 g/cm --------- Ventricular septum Septal thickness, ED 7.2 mm --------- Doppler measurements Normal Left ventricle IVRT 81 ms 60-100 Ea, lateral annulus, tissue Doppler 8.05 cm/s --------- E/Ea, lateral annulus, tissue Doppler 10.6 --------- Mitral valve Peak E-wave velocity 85.4 cm/s --------- Peak A-wave velocity 94.6 cm/s --------- Deceleration time 162 ms 150-230 Peak gradient, D 2.9 mm Hg --------- Peak E/A ratio 1 --------- Legend: Mean values are shown as u=mean value. Asterisk (*) polk values outside specified normal range. Electronically signed by Kadeem Montoya MD 02/13/2014 12:03 Rome Elliott MD CARDIAC ECHO ORDERAB LES * (ABNORMAL) GLUCOSE, GLUCOMETER (02/13/2014 9:11 EDT) Glucose, Fingerstick 145(H) 70 - 100 mg/dl [facility] Advertising Operations Coordinator ID [id number] [facility] Comment:Test Performed by [facility] 02/13/2014 9:11 EDT 02/13/2014 9:13 EDT Herminia Wetzel MD CHEMISTRY & BL OOD GAS ORDERABLES Performing Organization Address [facility] Co de Phone Number [facility] [address] [place] [address] * (ABNORMAL) DIFFERENTIAL (02/13/2014 6:19 EDT) % Neutrophils 85.4(H) 45.5 - 79.7 % [facility] % Lymphocytes 10.3(L) 15.0 - 46.8 % [facility] % Monocytes 4.0 1.8 - 12.0 % [facility] % Eosinophils 0.0(L) 0.6 - 6.9 % [facility] % Basophils 0.3 0.2 - 1.4 % [facility] ABS Neutrophils 6.44 2.20 - 8.85 K/cmm [facility] Lymphs 0.77(L) 1.09 - 3.30 K/cmm [facility] Monocytes 0.30 0.1 - 0.8 K/cmm [facility] Eosinophils 0.00(L) 0.03 - 0.61 K/cmm [facility] Basophils 0.02 0.01 - 0.11 K/cmm [facility] Type of Diff: Automated [facility] 02/13/2014 6:19 EDT 02/13/2014 6:47 EDT Anshu Elizabeth MD HEMATOLOGY & PF4 ORD ERABLES Performing Organization Address [facility] Co de Phone Number [facility] [address] [place] [address] * (ABNORMAL) HEMAGRAM (02/13/2014 6:19 EDT) Pathologist [facility] WBC 7.53 4.0 - 12.4 K/cmm [facility] RBC 4.13 3.86 - 5.04 M/cmm [facility] Hemoglobin 12.9 11.6 - 15.2 gm/dl [facility] HCT 37.1 34.9 - 44.4 % [facility] MCV 90 81 - 98 fl [facility] MCH 31.3 26.7 - 33.3 pg [facility] MCHC 34.8 32.1 - 35.9 gm/dl [facility] PLT 332(H) 141 - 320 K/cmm [facility] RDW-CV 15.6(H) 11.7 - 14.6 % [facility] 02/13/2014 6:19 EDT 02/13/2014 6:47 EDT Anshu Elizabeth MD HEMATOLOGY & PF4 ORD ERABLES Performing Organization Address City/[facility] Co de Phone Number [facility] [address] [place] [address] * (ABNORMAL) CREATININE (02/13/2014 6:19 EDT) Pathologist [facility] Creatinine 0.50(L) 0.52 - 1.04 mg/dl [facility] GFR, Calculated >60 >60 ml/min/1.7 3m2 [facility] Blood specimen (specimen) 02/13/2014 6:19 EDT 02/13/2014 6:47 EDT Anshu Elizabeth MD CHEMISTRY & BLOOD GA S ORDERABLES Performing Organization Address City/[facility] Co de Phone Number [facility] [address] [place] [address] * BUN (02/13/2014 6:19 EDT) Pathologist [facility] BUN 12 10 - 26 mg/dl [facility] Blood specimen (specimen) 02/13/2014 6:19 EDT 02/13/2014 6:47 EDT Anshu Elizabeth MD CHEMISTRY & BLOOD GA S ORDERABLES Performing Organization Address [facility] de Phone Number [facility] [address] [place] [address] * ELECTROLYTES (02/13/2014 6:19 EDT) Sodium 142 136 - 145 mEq/L [facility] Potassium 4.0 3.5 - 5.0 mEq/L [facility] Chloride 103 96 - 110 mEq/L [facility] CO2 26 24 - 32 mEq/L [facility] Blood specimen (specimen) 02/13/2014 6:19 EDT 02/13/2014 6:47 EDT Anshu Elizabeth MD CHEMISTRY & BLOOD GA S ORDERABLES Performing Organization Address [facility] de Phone Number [facility] [address] [place] [address] * (ABNORMAL) GLUCOSE, GLUCOMETER (02/12/2014 22:10 EDT) Glucose, Fingerstick 142(H) 70 - 100 mg/dl [facility] Advertising Operations Coordinator ID [id number] [facility] Comment:Test Performed by [facility] 02/12/2014 22:1 0 EDT 02/12/2014 22:12 EDT Vincent Peck MD CHEMISTRY & BLOOD G ORDERABLES Performing Organization Address [facility] de Phone Number [facility] [address] [place] [address] * INPATIENT ADD-ON (02/12/2014 19:15 EDT) Tests to be added ALK PHOS,ALT,A ST,TOTAL BILI,LIPAS E [facility] Number for problems 71,[id number] [facility] Accession number [id number] [facility] 02/12/2014 19:1 5 EDT 02/12/2014 19:20 EDT Anshu Elizabeth MD HEMATOLOGY & PF4 ORD ERABLES Performing Organization Address [facility]/ZIP Co de Phone Number [facility] [address] [place] [address] * (ABNORMAL) BLOOD GAS, G3 ISTAT (02/12/2014 15:41 EDT) pH, i-STAT 7.42 7.35 - 7.45 [facility] pCO2, i-STAT 34(L) 35 - 45 mmHg [facility] pO2, i-STAT 68(L) 80 - 105 mmHg [facility] TCO2, i-STAT 23 mEq/L [facility] O2 Saturation 94 % [facility] Base Deficit, i-STAT 2 [facility] Sample Type ARTERIAL [facility] electrostatic painter ID [id number] [facility] Comment: Test Performed by Respiratory For non-arterial reference ranges, please see ISTAT procedure. 02/12/2014 15:4 1 EDT 02/12/2014 15:46 EDT Provider Unknown CHEMISTRY & BLOOD GA S ORDERABLES Performing Organization Address City/State/[facility] Co de Phone Number [facility] [address] [place] [address] * CT CHEST W CONTRAST (PE) PROTOCOL (02/12/2014 14:24 EDT) Anatomical Region Laterality Modality Other 02/12/2014 14:2 4 EDT 02/12/2014 16:20 EDT Narrative 02/12/2014 16:[address] CHEST W CONTRAST (PE) PROTOCOL ??02/12/2014 2:24 PM SIGNS AND SYMPTOMS/COMMENTS: ??dyspnea Technique: A contrast-enhanced helical CT acquisition of the chest from apices through the lung bases was performed with a reconstructed slice thickness of 0.9 mm with overlapping 0.45 mm intervals following the intravenous administration of ??75-100 cc of 370 mg% nonionic contrast injected at a rate of 4-5 cc/second. ??A small test bolus ??was used for image acquisition. Scans were reviewed on a dedicated PACS workstation for analysis. Comparison:June 15, 2012 Findings: Opacification of the pulmonary vasculature is good. No acute or chronic emboli are seen within the pulmonary arterial vasculature. Evaluation of the chest wall shows no soft tissue abnormalities. Evaluation of the mediastinum demonstrates prominent juli tissue in the mediastinum and right hilum, slightly increased compared to prior. ??There is slightly decreased attenuation of the cardiac apex and septum with respect to the lateral wall myocardium. There is no significant coronary artery calcification. Mild atherosclerosis is present in the aorta. ?? Evaluation of the airways shows mild diffuse thickening. ?? Evaluation of the lungs shows diffuse bilateral groundglass opacities which are predominantly central and with a slight the mid to lower lobe predominance. There is mild interlobular septal thickening as well as fissural prominence. There is severe emphysema ?? Evaluation of the pleura shows mild left pleural thickening versus a small effusion. Evaluation of the upper abdomen shows clips from a prior Aspen fundoplication. A few of the clips project above the diaphragm. Evaluation of the bones shows partially visualized ACDF fusion hardware. Impression: 1. No evidence of pulmonary embolism. 2. Diffuse predominantly central as well as slight mid and lower lobe predominant groundglass opacities. Given evidence of interlobular septal thickening and fissural prominence, this may represent pulmonary edema. Other considerations include viral pneumonia or DIP if the patient is a current heavy smoker. 3. Slight interval increase of juli tissue, felt to be reactive. 4. Subtle decreased attenuation of the cardiac septum and apex with respect to the lateral wall myocardium. Although this finding is nonspecific and the patient lacks coronary calcifications, given the possibility of pulmonary edema within the chest, would recommend correlation with cardiac enzymes. 5. Severe emphysema. I have personally reviewed the images and the above interpretation and agree with the findings. Procedure Note 02/12/2014 CT CHEST W CONTRAST (PE) PROTOCOL 02/12/2014 2:24 PM SIGNS AND SYMPTOMS/COMMENTS: dyspnea Technique: A contrast-enhanced helical CT acquisition of the chest from apices through the lung bases was performed with a reconstructed slice thickness of 0.9 mm with overlapping 0.45 mm intervals following the intravenous administration of 75-100 cc of 370 mg% nonionic contrast injected at a rate of 4-5 cc/second. A small test bolus was used for image acquisition. Scans were reviewed on a dedicated PACS workstation for analysis. Comparison:June 15, 2012 Findings: Opacification of the pulmonary vasculature is good. No acute or chronic emboli are seen within the pulmonary arterial vasculature. Evaluation of the chest wall shows no soft tissue abnormalities. Evaluation of the mediastinum demonstrates prominent juli tissue in the mediastinum and right hilum, slightly increased compared to prior. There is slightly decreased attenuation of the cardiac apex and septum with respect to the lateral wall myocardium. There is no significant coronary artery calcification. Mild atherosclerosis is present in the aorta. Evaluation of the airways shows mild diffuse thickening. Evaluation of the lungs shows diffuse bilateral groundglass opacities which are predominantly central and with a slight the mid to lower lobe predominance. There is mild interlobular septal thickening as well as fissural prominence. There is severe emphysema Evaluation of the pleura shows mild left pleural thickening versus a small effusion. Evaluation of the upper abdomen shows clips from a prior Aspen fundoplication. A few of the clips project above the diaphragm. Evaluation of the bones shows partially visualized ACDF fusion hardware. Impression: 1. No evidence of pulmonary embolism. 2. Diffuse predominantly central as well as slight mid and lower lobe predominant groundglass opacities. Given evidence of interlobular septal thickening and fissural prominence, this may represent pulmonary edema. Other considerations include viral pneumonia or DIP if the patient is a current heavy smoker. 3. Slight interval increase of juli tissue, felt to be reactive. 4. Subtle decreased attenuation of the cardiac septum and apex with respect to the lateral wall myocardium. Although this finding is nonspecific and the patient lacks coronary calcifications, given the possibility of pulmonary edema within the chest, would recommend correlation with cardiac enzymes. 5. Severe emphysema. I have personally reviewed the images and the above interpretation and agree with the findings. Moi Min MD IMG CT ORDER KATHI * ED/WICC ADD-ON (02/12/2014 13:50 EDT) Tests to be added BNP [facility] Number for problems [id number] (ED) [facility] 02/12/2014 13:5 0 EDT 02/12/2014 14:23 EDT Moi Min MD HEMATOLOGY & PF4 ORDERABLES [facility] [address] [place] [address] * EKG 12-LEAD (02/12/2014 13:02 EDT) 02/12/2014 13:0 2 EDT Narrative [facility] EKG - 02/14/2014 13:43 EDT ?[facility] ? Test Date: ?2014-02-12 Pat Name: ? MARIA DEL ROSARIO MEADOWS ?Department: ?? ED ? Room: ? AC12 Gender: ? 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 [id number] : ?1960 ? Requested By: MOI MIN MD Order Number: [id number] ? Reading MD: ?? JAUN SANTIAGO MD ? Measurements Intervals ?[place] ? Rate: ? 84 ? P: ?73 WA: ? 146 ?QRS: ?51 QRSD: ? 92 ? T: ?29 QT: ? 368 ? QTc: ?436 ? Interpretive Statements SINUS RHYTHM Non specific ST/ T wave abnormalities Compared to ECG 04/05/2012 11:17:44 No significant changes I reviewed the tracing and agreed or edited the report. Electronically Signed On 02-14-14 13:43:01 EDT by JAUN SANTIAGO MD. 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 ElectronicallySigned On 02-14-14 13:43:01 EDT by JAUN SANTIAGO MD. Moi Min MD CARDIAC ECG ORDERABLES [facility] E[facility] * BILIRUBIN, TOTAL (02/12/2014 12:14 EDT) Bilirubin, Total 0.6 <1.4 mg/dl [facility] 02/12/2014 12:1 4 EDT 02/12/2014 12:17 EDT Moi Min MD CHEMISTRY & BLOOD GAS ORDERABLES Performing Organization Address [facility] de Phone Number [facility] [address] [place] [address] * LIPASE (02/12/2014 12:14 EDT) Lipase <15 0 - 250 U/L [facility] 02/12/2014 12:1 4 EDT 02/12/2014 12:17 EDT Moi Min MD CHEMISTRY & BLOOD GAS ORDERABLES Performing Organization Address [facility] de Phone Number [facility] [address] [place] [address] * AST (02/12/2014 12:14 EDT) AST 28 15 - 46 U/L [facility] 02/12/2014 12:1 4 EDT 02/12/2014 12:17 EDT Moi Min MD CHEMISTRY & BLOOD GAS ORDERABLES Performing Organization Address [facility] de Phone Number [facility] [address] [place] [address] * ALT (02/12/2014 12:14 EDT) ALT 15 9 - 52 U/L [facility] 02/12/2014 12:1 4 EDT 02/12/2014 12:17 EDT Moi Min MD CHEMISTRY & BLOOD GAS ORDERABLES Performing Organization Address [facility]/ZIP Co de Phone Number [facility] [address] [place] [address] * ALKALINE PHOSPHATASE (02/12/2014 12:14 EDT) Total Alkaline Phosphatase 115 38 - 126 U/L [facility] 02/12/2014 12:1 4 EDT 02/12/2014 12:17 EDT Moi Min MD CHEMISTRY & BLOOD GAS ORDERABLES Performing Organization Address [facility] de Phone Number [facility] [address] [place] [address] * (ABNORMAL) NT PRO BNP (02/12/2014 12:14 EDT) NT Pro BNP 419(H) <300 pg/ml [facility] Comment: Reference Range: NT-proBNP values less than [...] 89% and 72% for acute congestive failure. 02/12/2014 12:1 4 EDT 02/12/2014 12:17 EDT Moi Min MD CHEMISTRY & BLOOD GAS ORDERABLES Performing Organization Address [facility] de Phone Number [facility] [address] [place] [address] * PTT (02/12/2014 12:14 EDT) Pathologist [facility] PTT 34 26 - 37 secs [facility] Comment:Therapeutic Heparin range: 65-100 seconds Blood specimen (specimen) 02/12/2014 12:14 EDT 02/12/2014 12:17 EDT Moi Min MD HEMATOLOGY & PF4 ORDERABLES Performing Organization Address [facility] Co de Phone Number [facility] [address] [place] [address] * (ABNORMAL) PROTIME (02/12/2014 12:14 EDT) Pro Time 12.5(H) 9.5 - 12.3 secs [facility] Comment: New prothrombin t floyd range effective 01/08/14 I.N.R. 1.2(H) 0.9 - 1.1 Ratio [facility] Comment: Moderate Intensity Coumadin INR = 2.0-3.0 Adjustments in anticoagulant therapy dose should be based upon the INR and NOT the Pro Time. Blood specimen (specimen) 02/12/2014 12:14 EDT 02/12/2014 12:17 EDT Moi Min MD HEMATOLOGY & PF4 ORDERABLES Performing Organization Address [facility] Co de Phone Number [facility] [address] [place] [address] * TROPONIN I (02/12/2014 12:14 EDT) Troponin I (ng/mL) <0.034 <0.034 ng/ml [facility] Blood specimen (specimen) 02/12/2014 12:14 EDT 02/12/2014 12:17 EDT Moi Min MD CHEMISTRY & BLOOD GAS ORDERABLES Performing Organization Address [facility] de Phone Number [facility] [address] [place] [address] * CK MB WITH TOTAL CK (02/12/2014 12:14 EDT) CK 90 30 - 135 U/L [facility] MB 0.33 <2.95 ng/ml [facility] Blood specimen (specimen) 02/12/2014 12:14 EDT 02/12/2014 12:17 EDT Moi Min MD CHEMISTRY & BLOOD GAS ORDERABLES Performing Organization Address [facility] Co de Phone Number [facility] [address] [place] [address] * MAGNESIUM (02/12/2014 12:14 EDT) Magnesium 2.1 1.7 - 2.8 mg/dl [facility] Blood specimen (specimen) 02/12/2014 12:14 EDT 02/12/2014 12:17 EDT Moi Min MD CHEMISTRY & BLOOD GAS ORDERABLES Performing Organization Address [facility] Co de Phone Number [facility] [address] [place] [address] * (ABNORMAL) SCREENING GLUCOSE (02/12/2014 12:14 EDT) Glucose, Screening 111(H) 70 - 100 mg/dl [facility] Blood specimen (specimen) 02/12/2014 12:14 EDT 02/12/2014 12:17 EDT oMi Min MD CHEMISTRY & BLOOD GAS ORDERABLES Performing Organization Address [facility] de Phone Number [facility] [address] [place] [address] * (ABNORMAL) CREATININE (02/12/2014 12:14 EDT) Creatinine 0.46(L) 0.52 - 1.04 mg/dl [facility] GFR, Calculated >60 >60 ml/min/1.7 3m2 [facility] Blood specimen (specimen) 02/12/2014 12:14 EDT 02/12/2014 12:17 EDT Moi Min MD CHEMISTRY & BLOOD GAS ORDERABLES Performing Organization Address [facility] de Phone Number [facility] [address] [place] [address] * BUN (02/12/2014 12:14 EDT) BUN 10 10 - 26 mg/dl [facility] Blood specimen (specimen) 02/12/2014 12:14 EDT 02/12/2014 12:17 EDT Moi Min MD CHEMISTRY & BLOOD GAS ORDERABLES Performing Organization Address [facility] de Phone Number [facility] [address] [place] [address] * ELECTROLYTES (02/12/2014 12:14 EDT) Sodium 144 136 - 145 mEq/L [facility] Potassium 3.9 3.5 - 5.0 mEq/L [facility] Chloride 109 96 - 110 mEq/L [facility] CO2 25 24 - 32 mEq/L [facility] Blood specimen (specimen) 02/12/2014 12:14 EDT 02/12/2014 12:17 EDT Moi Min MD CHEMISTRY & BLOOD GAS ORDERABLES [facility] [address] [place] [address] * PORTABLE CHEST 1 VIEW (02/12/2014 11:16 EDT) Anatomical Region Laterality Modality Other 02/12/2014 11:1 6 EDT 02/12/2014 11:25 EDT Narrative 02/12/2014 11:25 EDT PORTABLE CHEST 1 VIEW ??02/12/2014 11:16 AM Signs and Symptoms/Comments: ?? DYSPNEA Comparison: 01/04/2009, 04/05/2012 and 02/26/2013 Findings: The patient as once again developed fairly widespread interstitial and airspace opacities that are worse in the lower lung zones. Although no definite Hunter B-lines are identified, the recurrent nature suggests pulmonary edema. The cardiac silhouette is normal in size. No evidence of pleural fluid or pneumothorax is visible on this nearly erect study. The patient has had lower anterior cervical spine fusion. Impression: Likely pulmonary edema Procedure Note 02/12/2014 PORTABLE CHEST 1 VIEW 02/12/2014 11:16 AM Signs and Symptoms/Comments: DYSPNEA Comparison: 01/04/2009, 04/05/2012 and 02/26/2013 Findings: The patient as once again developed fairly widespread interstitial and airspace opacities that are worse in the lower lung zones. Although no definite Hunter B-lines are identified, the recurrent nature suggests pulmonary edema. The cardiac silhouette is normal in size. No evidence of pleural fluid or pneumothorax is visible on this nearly erect study. The patient has had lower anterior cervical spine fusion. Impression: Likely pulmonary edema Moi Min MD IMG DIAGNOST IC IMAGING ORDERABLES * SMEAR REVIEW (02/12/2014 11:10 EDT) Smear scan only: Slide was examined by a technologist to verify the WBC and/or platelet count. [facility] Comment:1+ platelet clumps 02/12/2014 11:1 0 EDT 02/12/2014 11:17 EDT Moi Min MD HEMATOLOGY & PF4 ORDERABLES Performing Organization Address City/[facility]/ZIP Co de Phone Number [facility] [address] [place] [address] * (ABNORMAL) DIFFERENTIAL (02/12/2014 11:10 EDT) % Neutrophils 82.6(H) 45.5 - 79.7 % [facility] % Lymphocytes 9.1(L) 15.0 - 46.8 % [facility] % Monocytes 5.8 1.8 - 12.0 % [facility] % Eosinophils 2.4 0.6 - 6.9 % [facility] % Basophils 0.1(L) 0.2 - 1.4 % [facility] ABS Neutrophils 9.75(H) 2.20 - 8.85 K/cmm [facility] ABS Lymphs 1.07(L) 1.09 - 3.30 K/cmm [facility] ABS Monocytes 0.68 0.1 - 0.8 K/cmm [facility] ABS Eosinophils 0.28 0.03 - 0.61 K/cmm [facility] ABS Basophils 0.01 0.01 - 0.11 K/cmm [facility] Type of Diff: Automated [facility] 02/12/2014 11:1 0 EDT 02/12/2014 11:17 EDT Moi Min MD HEMATOLOGY & PF4 ORDERABLES [facility] [address] [place] [address] * REDRAW LABS (02/12/2014 11:10 EDT) Pathologist [facility] Redraw LYT,BUN,CRE AT,MG,GLS,C KMBB,TROPI, NTBNP [facility] 02/12/2014 11:1 0 EDT 02/12/2014 11:17 EDT Moi Min MD LAB INFO SER VICE AND SUPPORT & PHONE RESULT Performing Organization Address [facility] Co de Phone Number [facility] [address] [place] [address] * HOLD BLUE TOP (02/12/2014 11:10 EDT) [facility] Hold Blue Top Sample for coagulation will be discarded after 4 hours [facility] 02/12/2014 11:1 0 EDT 02/12/2014 11:17 EDT Moi Min MD LAB INFO SER VICE AND SUPPORT & PHONE RESULT Performing Organization Address [facility] Co de Phone Number [facility] [address] [place] [address] * TROPONIN I (02/12/2014 11:10 EDT) [facility] Troponin I (ng/mL) Marked hemolysis <0.034 ng/ml [facility] Comment: Specimen unsuitable for analysis. Repeat Requested 02/12/2014 11:1 0 EDT 02/12/2014 11:17 EDT Moi Min MD CHEMISTRY & BLOOD GAS ORDERABLES Performing Organization Address [facility] Co de Phone Number [facility] [address] [place] [address] * CK MB WITH TOTAL CK (02/12/2014 11:10 EDT) [facility] CK Marked hemolysis 30 - 135 U/L [facility] Comment: Specimen unsuitable for analysis. Repeat Requested MB Marked hemolysis <2.95 ng/ml [facility] Comment: Specimen unsuitable for analysis. Repeat Requested 02/12/2014 11:1 0 EDT 02/12/2014 11:17 EDT Moi Min MD CHEMISTRY & BLOOD GAS ORDERABLES Performing Organization Address [facility] de Phone Number [facility] [address] [place] [address] * MAGNESIUM (02/12/2014 11:10 EDT) Magnesium Marked hemolysis 1.7 - 2.8 mg/dl [facility] Comment: Specimen unsuitable for analysis. Repeat Requested 02/12/2014 11:1 0 EDT 02/12/2014 11:17 EDT Moi Min MD CHEMISTRY & BLOOD GAS ORDERABLES Performing Organization Address [facility] Phone Number [facility] [address] [place] [address] * SCREENING GLUCOSE (02/12/2014 11:10 EDT) Glucose, Screening Marked hemolysis 70 - 100 mg/dl [facility] Comment: Specimen unsuitable for analysis. Repeat Requested 02/12/2014 11:1 0 EDT 02/12/2014 11:17 EDT Moi Min MD CHEMISTRY & BLOOD GAS ORDERABLES Performing Organization Address [facility] de Phone Number [facility] [address] [place] [address] * CREATININE (02/12/2014 11:10 EDT) Creatinine Marked hemolysis 0.52 - 1.04 mg/dl [facility] Comment: Specimen unsuitable for analysis. Repeat Requested GFR, Calculated Not calculated >60 ml/min/1. 73m2 [facility] 02/12/2014 11:1 0 EDT 02/12/2014 11:17 EDT Moi Min MD CHEMISTRY & BLOOD GAS ORDERABLES Performing Organization Address [facility] de Phone Number [facility] [address] [place] [address] * BUN (02/12/2014 11:10 EDT) BUN Marked hemolysis 10 - 26 mg/dl [facility] Comment: Specimen unsuitable for analysis. Repeat Requested 02/12/2014 11:1 0 EDT 02/12/2014 11:17 EDT Moi Min MD CHEMISTRY & BLOOD GAS ORDERABLES Performing Organization Address [facility] de Phone Number [facility] [address] [place] [address] * ELECTROLYTES (02/12/2014 11:10 EDT) Sodium Marked hemolysis 136 - 145 mEq/L [facility] Comment: Specimen unsuitable for analysis. Repeat Requested Potassium Marked hemolysis 3.5 - 5.0 mEq/L [facility] Comment: Specimen unsuitable for analysis. Repeat Requested Chloride Marked hemolysis 96 - 110 mEq/L [facility] Comment: Specimen unsuitable for analysis. Repeat Requested CO2 Marked hemolysis 24 - 32 mEq/L [facility] Comment: Specimen unsuitable for analysis. Repeat Requested 02/12/2014 11:1 0 EDT 02/12/2014 11:17 EDT Moi Min MD CHEMISTRY & BLOOD GAS ORDERABLES Performing Organization Address [facility] de Phone Number [facility] [address] [place] [address] * (ABNORMAL) HEMAGRAM (02/12/2014 11:10 EDT) WBC 11.79 4.0 - 12.4 K/cmm [facility] RBC 4.25 3.86 - 5.04 M/cmm [facility] Hemoglobin 13.2 11.6 - 15.2 gm/dl [facility] HCT 38.4 34.9 - 44.4 % [facility] MCV 90 81 - 98 fl [facility] MCH 31.1 26.7 - 33.3 pg [facility] MCHC 34.5 32.1 - 35.9 gm/dl [facility] PLT 344(H) 141 - 320 K/cmm [facility] RDW-CV 15.7(H) 11.7 - 14.6 % [facility] 02/12/2014 11:1 0 EDT 02/12/2014 11:17 EDT Moi Min MD HEMATOLOGY & PF4 ORDERABLES Performing Organization Address [facility] de Phone Number [facility] [address] [place] [address] * NT PRO BNP (02/12/2014 11:10 EDT) NT Pro BNP Marked hemolysis <300 pg/ml [facility] Comment: Specimen unsuitable for analysis. Repeat Requested Reference Range: NT-proBNP values less than 300 [...] 89% and 72% for acute congestive failure. 02/12/2014 11:1 0 EDT 02/12/2014 11:17 EDT Moi Min MD CHEMISTRY & BLOOD GAS ORDERABLES Performing Organization Address [facility] de Phone Number [facility] [address] [place] [address] * ED/WICC ADD-ON (02/12/2014 11:10 EDT) Tests to be added BNP [facility] Number for problems [id number] (ED) [facility] 02/12/2014 11:1 0 EDT 02/12/2014 11:28 EDT Moi Min MD HEMATOLOGY & PF4 ORDERABLES Performing Organization Address [facility] Co de Phone Number [facility] [address] [place] [address] documented in this encounter Visit Diagnoses Diagnosis Hypoxia Hypoxemia COPD exacerbation (HCC-CMS) Obstructive chronic bronchitis with exacerbation ILD (interstitial lung disease) ([facility]) Postinflammatory pulmonary fibrosis Asthma Unspecified asthma COPD (chronic obstructive pulmonary disease) (HCC-CMS) Chronic airway obstruction, not elsewhere classified Hypoxia Hypoxemia COPD exacerbation ([facility]-CMS) Obstructive chronic bronchitis with exacerbation Screening for [...] (TYLENOL) tablet 1,000 mg 1,000 mg, oral, NOW X1, 1 dose, On Wed02/12/14 at 1345, STAT Given 02/12/2014 13:46 EDT 1,000 mg acetaminophen (TYLENOL) tablet 650 mg 650 mg, oral, EVERY 6 HOURS PRN, Starting on Wed02/12/14 at 2158, Until Wed02/16/14 at 1614, Pain, STAT Given 02/16/2014 9:23 EDT 650 mg Given 02/15/2014 15:19 EDT 650 mg Given 02/15/2014 6:46 EDT 650 mg albuterol (ACCUNEB) nebulizer solution 5 mg 5 mg, nebulization, NOW X1, 1 dose, On Wed02/12/14 at 1730, STAT Given 02/12/2014 17:49 EDT 5 mg azithromycin (ZITHROMAX) 500 mg in dextrose 5% (D5W) 250 mL IVPB 500 mg, intravenous, Administer over 60 Minutes, NOW X1, 1 dose, On Wed02/12/14 at 1730, STAT Given 02/12/2014 18:51 EDT 500 mg azithromycin (ZITHROMAX) tablet 250 mg 250 mg, oral, DAILY, 4 doses, First dose on Wed02/13/14 at 0900, Last dose on Wed02/16/14 at 0900, STAT Given 02/16/2014 9:25 EDT 250 mg Given 02/15/2014 9:12 EDT 250 mg Given 02/14/2014 9:08 EDT 250 mg baclofen (LIORESAL) tablet 10 mg 10 mg, oral, 3 TIMES DAILY PRN, Starting on Wed02/12/14 at 2158, Until Wed02/16/14 at 1614, mucles tightness, STAT Given 02/16/2014 9:22 EDT 10 mg Given 02/15/2014 21:13 EDT 10 mg Given 02/15/2014 15:19 EDT 10 mg cycloSPORINE (RESTASIS) 0.05 % ophthalmic emulsion 1 Drop 1 Drop, both eyes, 2 TIMES DAILY, First dose on Wed02/12/14 at 2215, Until Discontinued, STAT Given 02/16/2014 9:27 EDT 4 Drops Given 02/15/2014 21:14 EDT 1 Drop Given 02/15/2014 9:11 EDT 4 Drops doxycycline (VIBRA-TABS) tablet 100 mg 100 mg, oral, DAILY, 14 doses, First dose on Wed02/13/14 at 0900, Last dose on Wed02/26/14 at 0900, STAT Given 02/16/2014 9:24 EDT 100 mg Given 02/15/2014 9:11 EDT 100 mg Given 02/14/2014 9:06 EDT 100 mg enoxaparin (LOVENOX) injection 40 mg 40 mg, subcutaneous, DAILY, First dose on Wed02/13/14 at 0900, Until Discontinued, STAT Given 02/16/2014 9:24 EDT 40 mg Given 02/15/2014 9:17 EDT 40 mg Given 02/14/2014 9:06 EDT 40 mg fexofenadine (JUDITH) 12 hr tablet 180 mg 180 mg, oral, DAILY, First dose on Wed02/13/14 at 0900, Until Discontinued, STAT Given 02/16/2014 9:23 EDT 180 mg Given 02/15/2014 9:12 EDT 180 mg Given 02/14/2014 9:06 EDT 180 mg furosemide (LASIX) injection 40 mg 40 mg, intravenous, NOW X1, 1 dose, On Wed02/12/14 at 1545, STAT Given 02/12/2014 15:54 EDT 40 mg furosemide (LASIX) injection 40 mg 40 mg, intravenous, NOW X1, 1 dose, On Wed02/13/14 at 1145, Routine Given 02/13/2014 11:45 EDT 40 mg furosemide (LASIX) injection 40 mg 40 mg, intravenous, NOW X1, 1 dose, On Wed02/14/14 at 1200, Routine Given 02/14/2014 13:31 EDT 40 mg furosemide (LASIX) injection 40 mg 40 mg, intravenous, NOW X1, 1 dose, On Wed02/15/14 at 1200, Routine Given 02/15/2014 12:08 EDT 40 mg furosemide (LASIX) injection 40 mg 40 mg, intravenous, NOW X1, 1 dose, On Wed02/15/14 at 1800, Routine Given 02/15/2014 18:06 EDT 40 mg HYDROcodone-acetaminophen (NORCO) 5-325 mg tablet 1-2 Tab 1-2 Tablet, oral, EVERY 6 HOURS PRN, Starting on Wed02/12/14 at 2000, Until Wed02/16/14 at 1614, Pain, STAT Given 02/16/2014 10:09 EDT 1 Tablet Given 02/16/2014 3:46 EDT 2 Tablets Given 02/15/2014 21:14 EDT 2 Tablets HYDROcodone-acetaminophen (NORCO) 5-325 mg tablet 2 Tab 2 Tablet, oral, NOW X1, 1 dose, On Wed02/12/14 at 1700, STAT Given 02/12/2014 17:03 EDT 2 Tablets hydroxypropyl methylcellulose (ISOPTO TEARS) 0.5 % ophthalmic solution 1 Drop 1 Drop, both eyes, 5 TIMES DAILY, First dose on Wed02/12/14 at 2215, Until Discontinued, STAT Given 02/12/2014 23:21 EDT 1 Drop insulin aspart (NOVOLOG FLEXPEN) injection subcutaneous, 3 TIMES DAILY WITH MEALS, First dose on Wed02/13/14 at 0800, Until Discontinued, STAT Given 02/15/2014 18:14 EDT 5 Units Given 02/15/2014 14:24 EDT 3 Units Given 02/15/2014 9:31 EDT 5 Units ipratropium (0.5mg/2.5ml) (ATROVENT) 0.02 % nebulizer solution 0.5 mg 0.5 mg, nebulization, NOW X1, 1 dose, On Wed02/12/14 at 1730, STAT Given 02/12/2014 17:49 EDT 0.5 mg ipratropium-albuterol (DUONEB) 0.5 mg-3 mg(2.5 mg base)/3 mL nebulizer solution 3 mL 3 mL, nebulization, 4 TIMES DAILY, First dose on Wed02/12/14 at 2100, Until Discontinued, STAT Given 02/12/2014 20:55 EDT 3 mL ipratropium-albuterol (DUONEB) 0.5 mg-3 mg(2.5 mg base)/3 mL nebulizer solution 3 mL 3 mL, nebulization, EVERY 4 HOURS, First dose (after last modification) on Wed02/13/14 at 0630, Until Discontinued, STAT Given 02/16/2014 4:21 EDT 3 mL Given 02/16/2014 0:37 EDT 3 mL Given 02/15/2014 20:22 EDT 3 mL ipratropium-albuterol (DUONEB) 0.5 mg-3 mg(2.5 mg base)/3 mL nebulizer solution 3 mL 3 mL, nebulization, 4 TIMES DAILY, First dose (after last modification) on Wed02/16/14 at 1200, Until Discontinued, STAT Given 02/16/2014 12:32 EDT 3 mL Given 02/16/2014 8:15 EDT 3 mL methylPREDNISolone sod suc(PF) (SOLU-MEDROL) injection 125 mg 125 mg, intravenous, NOW X1, 1 dose, On Wed02/12/14 at 1730, STAT Given 02/12/2014 18:51 EDT 125 mg methylPREDNISolone sod suc(PF) (SOLU-MEDROL) injection 60 mg 60 mg, intravenous, EVERY 6 HOURS, First dose on Wed02/13/14 at 1500, Until Discontinued, Routine Given 02/15/2014 12:08 EDT 60 mg Given 02/15/2014 6:41 EDT 60 mg Given 02/15/2014 0:53 EDT 60 mg mometasone (NASONEX) 50 mcg/actuation nasal spray 2 Clive 2 Clive, nasal, DAILY, First dose on Wed02/13/14 at 0900, Until Discontinued, STAT Given 02/16/2014 9:27 EDT 2 Spra ys Given 02/15/2014 9:15 EDT 2 Sprays Given 02/14/2014 9:07 EDT 2 Sprays mometasone-formoterol (DULERA) 200-5 mcg/actuation inhaler 2 Puff 2 Puff, inhalation, 2 TIMES DAILY, First dose on Wed02/12/14 at 2215, Until Discontinued, STAT Given 02/16/2014 8 :15 EDT 2 Puffs Given 02/15/2014 20:32 EDT 2 Puffs Given 02/15/2014 9:20 EDT 2 Puffs montelukast (SINGULAIR) tablet 10 mg 10 mg, oral, DAILY, First dose on Wed02/13/14 at 0900, Until Discontinued, STAT Given 02/16/2014 9:25 EDT 10 mg Given 02/15/2014 9:12 EDT 10 mg Given 02/14/2014 9:09 EDT 10 mg nortriptyline (PAMELOR) capsule 75 mg 75 mg, oral, DAILY, First dose on Wed02/13/14 at 0900, Until Discontinued, STAT Given 02/16/2014 9:24 EDT 75 mg Given 02/15/2014 9:11 EDT 75 mg Given 02/14/2014 9:02 EDT 75 mg ondansetron (PF) (ZOFRAN) 4 mg/2 mL injection 1 dose, Starting on Wed02/12/14 at 1854, Until Wed02/12/14 at 1858 ondansetron (PF) (ZOFRAN) injection 4 mg 4 mg, intravenous, NOW X1, 1 dose, On Wed02/12/14 at 1900, STAT Given 02/12/2014 18:58 EDT ondansetron (PF) (ZOFRAN) injection 4 mg 4 mg, intravenous, EVERY 4 HOURS PRN, Starting on Wed02/12/14 at 2158, Until Wed02/16/14 at 1614, Nausea, STAT Given 02/13/2014 3:28 EDT 4 mg pantoprazole (PROTONIX) tablet 40 mg 40 mg, oral, DAILY, First dose on Wed02/13/14 at 0900, Until Discontinued, STAT Given 02/16/2014 9:25 EDT 40 mg Given 02/15/2014 9:11 EDT 40 mg Given 02/14/2014 9:02 EDT 40 mg predniSONE (DELTASONE) tablet 40 mg 40 mg, oral, DAILY, First dose on Wed02/13/14 at 0900, Until Discontinued, STAT Given 02/13/2014 8:45 EDT 40 mg predniSONE (DELTASONE) tablet 40 mg 40 mg, oral, DAILY, First dose on Wed02/15/14 at 1800, Until Discontinued, Routine Given 02/16/2014 9:25 EDT 40 mg Given 02/15/2014 18:06 EDT 40 mg pregabalin (LYRICA) capsule 150 mg 150 mg, oral, 3 TIMES DAILY, First dose on Wed02/12/14 at 2215, Until Discontinued, STAT Given 02/16/2014 9:27 EDT 150 mg Given 02/15/2014 21:14 EDT 150 mg Given 02/15/2014 14:25 EDT 150 mg roflumilast tablet 500 mcg 500 mcg, oral, DAILY, First dose on Wed02/12/14 at 1945, Until Discontinued, STAT Given 02/16/2014 9:27 EDT 500 mcg Given 02/15/2014 9:12 EDT 500 mcg Given 02/14/2014 10:46 EDT 500 mcg rOPINIRole (REQUIP) tablet 2 mg 2 mg, oral, AT BEDTIME, First dose on Wed02/12/14 at 2215, Until Discontinued, STAT Given 02/15/2014 21:13 EDT 2 mg Given 02/14/2014 20:27 EDT 2 mg Given 02/13/2014 20:41 EDT 2 mg sertraline (ZOLOFT) tablet 200 mg 200 mg, oral, DAILY, First dose on Wed02/13/14 at 0900, Until Discontinued, STAT Given 02/16/2014 9:25 EDT 200 mg Given 02/15/2014 9:12 EDT 200 mg Given 02/14/2014 9:02 EDT 200 mg sumatriptan (IMITREX) tablet 50 mg 50 mg, oral, Once (Without Time Specified), 1 dose, Starting on Wed02/13/14 at 0912, Until Wed02/13/14 at 1804, Routine Given 02/13/2014 18:04 EDT 50 mg sumatriptan (IMITREX) tablet 50 mg 50 mg, oral, Once (Without Time Specified), 1 dose, Starting on Wed02/14/14 at 1507, Until Wed02/14/14 at 1543, Routine Given 02/14/2014 15:43 EDT 50 mg tamsulosin (FLOMAX) capsule 0.4 mg 0.4 mg, oral, DAILY, First dose on Wed02/13/14 at 0900, Until Discontinued, STAT Given 02/16/2014 9:25 EDT 0.4 mg Given 02/15/2014 9:12 EDT 0.4 mg Given 02/14/2014 9:05 EDT 0.4 mg tiotropium (SPIRIVA) 18 mcg inhalation capsule 18 mcg 18 mcg, inhalation, DAILY, First dose on Wed02/13/14 at 0900, Until Discontinued, STAT Given 02/16/2014 8:15 EDT 18 mcg Given 02/15/2014 9:20 EDT 18 mcg Given 02/14/2014 9:59 EDT 18 mcg zolpidem (AMBIEN) tablet 5 mg 5 mg, oral, AT BEDTIME PRN, Starting on Wed02/12/14 at 2158, Until Wed02/16/14 at 1614, Sleep, STAT Given 02/15/2014 23:16 EDT 5 mg Given 02/14/2014 22:38 EDT 5 mg Given 02/14/2014 0:04 EDT 5 mg documented in this encounter Discontinued Medications Medication Sig Discontinue Reason Start Date End Da te DALIRESP 500 mcg tablet TAKE ONE TABLET BY MOUTH ONE TIME DAILY 02/10/2014 02/12/2014 HYDROcodone-acetaminop hen (LORTAB) 5-500 mg tabletIndications:Left knee pain Take 1 Tab by mouth every 6 hours as needed for Pain for 28 days. 10/19/2013 02/16/2014 HYDROcodone-acetaminop hen (LORTAB) 5-500 mg tabletIndications:Left knee pain Take 1 Tab by mouth every 6 hours as needed for Pain for 28 days. 09/21/2013 02/16/2014 HYDROcodone-acetaminop hen (NORCO) 5-325 mg tablet Take 1-2 Tabs by mouth every 6 hours as needed for 28 days for Pain. 12/13/2013 02/16/2014 ipratropium-albuterol (DUONEB) 0.5 mg-3 mg(2.5 mg base)/3 mL nebulizer solutionIndications:As thma,COPD (chronic obstructive pulmonary disease) ([facility]) Take 3 mL by nebulization every 6 hours as needed for Wheezing. 03/02/2013 02/16/2014 documented as of this encounter Active and Recently Administered Medications Times are shown in EDT. Scheduled Medication Order 02/14/2014 02/15/2014 02/16/2014 azithromycin (ZITHROMAX) tablet 250 mg (COMPLETED) 250 mg, oral, DAILY, 4 doses, First dose on Wed02/13/14 at 0900, Last dose on Wed02/16/14 at 0900, STAT 0908 (Given - Provider: Landy Johnson RN) 0912 (Given - Provider: Puja Chapa RN) 09 (Given - Provider: Puja Chapa RN) cycloSPORINE (RESTASIS) 0.05 % ophthalmic emulsion 1 Drop (CANCELED) 1 Drop, both eyes, 2 TIMES DAILY, First dose on Wed02/12/14 at 2215, Until Discontinued, STAT 0908 (Given - Provider: Landy Johnson RN)2027 (Given - Provider: Susan Parada RN) 09 (Given - Provider: Puja Chapa, CHRIS)2113 (Given - Provider: Yajaira Monterroso RN) 926 (Given - Provider: Puja Chapa RN) doxycycline (VIBRA-TABS) tablet 100 mg (CANCELED) 100 mg, oral, DAILY, 14 doses, First dose on Wed02/13/14 at 0900, Last dose on Wed02/26/14 at 0900, STAT 0906 (Given - Provider: Landy Johnson RN) 0911 (Given - Provider: Puja Chapa RN) 0924 (Given - Provider: Puja Chapa, CHRIS) enoxaparin (LOVENOX) injection 40 mg (CANCELED) 40 mg, subcutaneous, DAILY, First dose on Wed02/13/14 at 0900, Until Discontinued, STAT 0906 (Given - Provider: Landy Johnson RN) 0917 (Given - Provider: Puja Chapa RN) 0924 (Given - Provider: Puja Chapa, CHRIS) fexofenadine (JUDITH) 12 hr tablet 180 mg (CANCELED) 180 mg, oral, DAILY, First dose on Wed02/13/14 at 0900, Until Discontinued, STAT 0906 (Given - Provider: Landy Johnson RN) 0912 (Given - Provider: Puja Chapa RN) 0923 (Given - Provider: Puja Chapa RN) furosemide (LASIX) injection 40 mg (COMPLETED) 40 mg, intravenous, NOW X1, 1 dose, On Wed02/14/14 at 1200, Routine 1331 (Given - Provider: Landy Johnson RN) furosemide (LASIX) injection 40 mg (COMPLETED) 40 mg, intravenous, NOW X1, 1 dose, On Wed02/15/14 at 1200, Routine 1208 (Given - Provider: Puja Chapa RN) furosemide (LASIX) injection 40 mg (COMPLETED) 40 mg, intravenous, NOW X1, 1 dose, On Wed02/15/14 at 1800, Routine 1806 (Given - Provider: Danielle Hood, CHRIS) insulin aspart (NOVOLOG FLEXPEN) injection (CANCELED) subcutaneous, 3 TIMES DAILY WITH MEALS, First dose on Wed02/13/14 at 0800, Until Discontinued, STAT 0912 (Given - Provider: Landy Johnson RN)1317 (Given - Provider: Landy Johnson RN)1845 (Given - Provider: Susan Parada RN) 0931 (Given - Provider: Puja Chapa RN)1424 (Given - Provider: Puja Chapa RN)1814 (Given - Provider: Danielle Hood, CHRIS) 0928 (Not Given - Provider: Puja Chapa RN - Reason: Order parameters not met)1310 (Not Given - Provider: Puja Chapa RN - Reason: Other - Comment: pt not eating lunch here) ipratropium-albuterol (DUONEB) 0.5 mg-3 mg(2.5 mg base)/3 mL nebulizer solution 3 mL (CANCELED) 3 mL, nebulization, EVERY 4 HOURS, First dose (after last modification) on Wed02/13/14 at 0630, Until Discontinued, STAT 0413 (Given - Provider: Radha Natarajan, RT)0959 (Given - Provider: Kathrine Shipman RT)1254 (Given - Provider: Kathrine Shipman RT)1708 (Given - Provider: Kathrine Shipman RT)2110 (Given - Provider: Meme Jordan, RT) 0041 (Given - Provider: Vera E [place], RT)0503 (Not Given - Provider: Vera Nichols, RT - Reason: Other)0920 (Given - Provider: Chavo Nowak RT)1254 (Given - Provider: Kathrine Shipman, RT)1644 (Given - Provider: Kathrine Shipman, RT)2022 (Given - Provider: Carmita Morelos, RT) 0037 (Given - Provider: Carmita Morelos RT)0421 (Given - Provider: Carmita Morelos, RT) ipratropium-albuterol (DUONEB) 0.5 mg-3 mg(2.5 mg base)/3 mL nebulizer solution 3 mL (CANCELED) 3 mL, nebulization, 4 TIMES DAILY, First dose (after last modification) on Wed02/16/14 at 1200, Until Discontinued, STAT 0815 (Given - Provider: Aurelia Chamberlain, RT)1232 (Given - Provider: Aurelia Chamberlain RT) methylPREDNISolone sod suc(PF) (SOLU-MEDROL) injection 60 mg (CANCELED) 60 mg, intravenous, EVERY 6 HOURS, First dose on Wed02/13/14 at 1500, Until Discontinued, Routine 0003 (Given - Provider: Leah Cuellar RN)0641 (Given - Provider: Leah Cuellar RN)1331 (Given - Provider: Landy Johnson RN)1830 (Given - Provider: Susan Parada RN) 0053 (Given - Provider: Yvonne Doty, RN)0641 (Given - Provider: Yvonne Doty, RN)1208 (Given - Provider: Puja Chapa, CHRIS) mometasone (NASONEX) 50 mcg/actuation nasal spray 2 Clive (CANCELED) 2 Clive, nasal, DAILY, First dose on Wed02/13/14 at 0900, Until Discontinued, STAT 0907 (Given - Provider: Landy Johnson RN) 0915 (Given - Provider: Puja Chapa, CHRIS) 0927 (Given - Provider: Puja Chapa, CHRIS) mometasone-formoterol (DULERA) 200-5 mcg/actuation inhaler 2 Puff (CANCELED) 2 Puff, inhalation, 2 TIMES DAILY, First dose on Wed02/12/14 at 2215, Until Discontinued, STAT 0959 (Given - Provider: Kathrine Shipman, RT)2110 (Given - Provider: Meme Jordan, RT) 09 (Given - Provider: Chavo Nowak, RT)2031 (Given - Provider: Carmita Morelos, RT) 0815 (Given - Provider: Aurelia Chamberlain, RT) montelukast (SINGULAIR) tablet 10 mg (CANCELED) 10 mg, oral, DAILY, First dose on Wed02/13/14 at 0900, Until Discontinued, STAT 0909 (Given - Provider: Landy Johnson RN) 0912 (Given - Provider: Puja Chapa RN) 0925 (Given - Provider: Puja Chapa RN) nortriptyline (PAMELOR) capsule 75 mg (CANCELED) 75 mg, oral, DAILY, First dose on Wed02/13/14 at 0900, Until Discontinued, STAT 0902 (Given - Provider: Landy Johnson RN) 09 (Given - Provider: Puja Chapa RN) 0924 (Given - Provider: Puja Chapa RN) pantoprazole (PROTONIX) tablet 40 mg (CANCELED) 40 mg, oral, DAILY, First dose on Wed02/13/14 at 0900, Until Discontinued, STAT 0902 (Given - Provider: Landy Johnson RN) 09 (Given - Provider: Puja Chapa RN) 0925 (Given - Provider: Puja Chapa RN) predniSONE (DELTASONE) tablet 40 mg 40 mg, oral, DAILY, First dose on Wed02/15/14 at 1800, Until Discontinued, Routine 1806 (Given - Provider: Danielle Hood RN) 0925 (Given - Provider: Puja Chapa RN) pregabalin (LYRICA) capsule 150 mg (CANCELED) 150 mg, oral, 3 TIMES DAILY, First dose on Wed02/12/14 at 2215, Until Discontinued, STAT 0907 (Given - Provider: Landy Johnson RN)1331 (Given - Provider: Landy Johnson RN)2027 (Given - Provider: Susan Parada RN) 09 (Given - Provider: Puja Chapa RN)1425 (Given - Provider: Puja Chapa RN)2114 (Given - Provider: Yajaira Monterroso, CHRIS) 09 (Given - Provider: Puja Chapa RN)1400 (Due) roflumilast tablet 500 mcg (CANCELED) 500 mcg, oral, DAILY, First dose on Wed02/12/14 at 1945, Until Discontinued, STAT 1046 (Given - Provider: Landy Johnson RN) 09 (Given - Provider: Puja Chapa RN) 09 (Given - Provider: Puja Chapa RN) rOPINIRole (REQUIP) tablet 2 mg (CANCELED) 2 mg, oral, AT BEDTIME, First dose on Wed02/12/14 at 2215, Until Discontinued, STAT 2026 (Given - Provider: Susan Parada RN) 2112 (Given - Provider: Yajaira Monterroso RN) sertraline (ZOLOFT) tablet 200 mg (CANCELED) 200 mg, oral, DAILY, First dose on Wed02/13/14 at 0900, Until Discontinued, STAT 0902 (Given - Provider: Landy Johnson RN) 09 (Given - Provider: Puja Chapa RN) 09 (Given - Provider: Puja Chapa RN) sumatriptan (IMITREX) tablet 50 mg (COMPLETED) 50 mg, oral, Once (Without Time Specified), 1 dose, Starting on Wed02/14/14 at 1507, Until Wed02/14/14 at 1543, Routine 1543 (Given - Provider: Susan Parada RN) tamsulosin (FLOMAX) capsule 0.4 mg (CANCELED) 0.4 mg, oral, DAILY, First dose on Wed02/13/14 at 0900, Until Discontinued, STAT 0905 (Given - Provider: Landy Johnson RN) 09 (Given - Provider: Puja Chapa RN) 09 (Given - Provider: Puja Chapa RN) tiotropium (SPIRIVA) 18 mcg inhalation capsule 18 mcg (CANCELED) 18 mcg, inhalation, DAILY, First dose on Wed02/13/14 at 0900, Until Discontinued, STAT 0959 (Given - Provider: Kathrine Shipman, RT) 0920 (Given - Provider: Chavo Nowak, RT) 0815 (Given - Provider: Aurelia Chamberlain, RT) PRN Medication Order 02/14/2014 02/15/2014 02/16/2014 acetaminophen (TYLENOL) tablet 650 mg (CANCELED) 650 mg, oral, EVERY 6 HOURS PRN, Starting on Wed02/12/14 at 2158, Until Wed02/16/14 at 1614, Pain, STAT 1056 (Given - Provider: Landy Johnson RN)2027 (Given - Provider: Susan Parada RN) 0646 (Given - Provider: Yvonne Doty, RN)151 (Given - Provider: Puja Chapa, CHRIS) 0923 (Given - Provider: Puja Chapa RN) baclofen (LIORESAL) tablet 10 mg (CANCELED) 10 mg, oral, 3 TIMES DAILY PRN, Starting on Wed02/12/14 at 2158, Until Wed02/16/14 at 1614, mucles tightness, STAT 1056 (Given - Provider: Landy Johnson RN)2027 (Given - Provider: Susan Parada RN) 0911 (Given - Provider: Puja Chapa, CHRIS)151 (Given - Provider: Puja Chapa RN)2112 (Given - Provider: Yajaira Monterroos RN) 0922 (Given - Provider: Puja Chapa RN) HYDROcodone-acetaminop hen (NORCO) 5-325 mg tablet 1-2 Tab (CANCELED) 1-2 Tablet, oral, EVERY 6 HOURS PRN, Starting on Wed02/12/14 at 2000, Until Wed02/16/14 at 1614, Pain, STAT 0004 (Given - Provider: Leah Cuellar, CHRIS)0647 (Given - Provider: Leah Cuellar RN)1332 (Given - Provider: Landy Johnson RN)2028 (Given - Provider: Susan Parada RN) 0646 (Given - Provider: Yvonne Doty, RN)1356 (Given - Provider: Puja Chapa RN)211 (Given - Provider: Yajaira Monterroso RN) 0346 (Given - Provider: Yajaira Monterroso RN)1009 (Given - Provider: Puja Chapa RN) zolpidem (AMBIEN) tablet 5 mg (CANCELED) 5 mg, oral, AT BEDTIME PRN, Starting on 02/12/14 at 2158, Until Wed02/16/14 at 1614, Sleep, STAT 0004 (Given - Provider: Leah Cuellar, CHRIS)2238 (Given - Provider: Susan Parada RN) 2316 (Given - Provider: Yajaira Monterroso RN) documented in this encounter Orders Medications Ordered That Victor Manuel ht Not Have Been Administered Count Last Ordered Date First Ordered Date albuterol (ACCUNEB) nebulize r solution 5 mg 1 02/13/2014 hydroxypropyl methylcellulos e (ISOPTO TEARS) 0.5 % ophthalmic solution 1 Drop 1 02/13/2014 albuterol (ACCUNEB) nebulize r solution 2.5 mg 1 02/12/2014 dextrose 50 % solution 12.5 g 1 02/12/2014 docusate sodium (COLACE) capsule 100 mg 1 0 02/12/2014 glucagon (human recombinant) injection 1 mg 1 02/12/2014 HYDROcodone-acetaminophen (N ORCO) 5-325 mg tablet 1-2 Tab 1 02/12/2014 ipratropium-albuterol (DUONE B) 0.5 mg-3 mg(2.5 mg base)/3 mL nebulizer solution 3 mL 2 02/12/2014 methylPREDNISolone sod SUCCI CECILIA (SOLU-MEDROL) 500 mg in sodium chloride (NS) 0.9 % 50 mL IVPB 1 02/12/2014 ondansetron (PF) (ZOFRAN) injection 4 mg 1 02/12/2014 ondansetron (ZOFRAN-ODT) dis integrating tablet 4 mg 1 02/12/2014 sumatriptan (IMITREX) tablet 50 mg 1 2013 Diet Count Last Ordered Date First Orde red Date DISCHARGE DIET 1 02/16/2014 Nursing Count Last Ordered Date First Orde red Date ACTIVITY INSTRUCTIONS 1 02/16/2014 MAGALLON CATHETER - DISCONTINUE 1 02/15/2014 INSERT MAGALLON CATHETER 1 02/13/2014 INSERT PERIPHERAL IV 1 02/12/2014 PT Count Last Ordered Date First Orde red Date PT EVALUATION AND TREAT 1 02/12/2014 Respiratory Care Count Last Ordered Date First Ordered Date DRY POWDERED OR METERED DOSE INHALER 12 02/201402/12/2014 NEBULIZER TX INTERMITTENT 19 02/16/2014 IV Count Last Ordered Date First Orde red Date IV REQUEST 4 02/16/2014 02/13/2014 Admission Count Last Ordered Date First Orde red Date STATUS: ED REQUEST FOR INPATIENT BED 1 10/2013 STATUS: INPATIENT ACUTE ADMISSION 1 014 Transfer Count Last Ordered Date First Orde red Date NOTIFY PPS OF DISCHARGE COMPLETE 1 02/17/20 14 NOTIFY PPS OF ROOM CHANGE COMPLETE 2 201302/13/2014 CHANGE ATTENDING TO: 1 02/13/2014 PPS NOTIFICATION OF PATIENT ARRIVAL ON UNIT 2 02/12/2014 Discharge Count Last Ordered Date First Orde red Date DISCHARGE PATIENT 1 02/16/2014 Legal Count Last Ordered Date First Orde red Date MISCELLANEOUS DISCHARGE INSTRUCTIONS 1 02/2014 documented in this encounter Care Teams Flour Mixer Helper Relationship Specialty Start Date End Date Moi Munoz MD [address] [place] [id number] PCP - General 12/31/08 Manny Rizzo MD [address] [place] [address] 04/20/10 documented as of this encounter
--- OUTSIDE RECORDS SUMMARY | 2024-06-10 07:26 | XMS_ITS | Encounter Summary ---
Author Organization [facility] Address [address] [place] [address] Care Team Providers Care Concessionist Name Role Phone Jean Munoz MD Primary Care Provider Manny Rizzo MD Unavailable Reason for Visit * Reason Onset Date Comments Medications Refill 12/18/2013 Encounter Details Date Type Department Care Team (Late st Contact Info) Description 12/18/2013 Telephone [facility] Sleep Program - [address] [phone] Tiana Bacon [address] [place] [phone] Medications Refill Social History Tobacco Use [...] Yes 02/26/2013 documented as of this encounter Ordered Prescriptions Prescription Sig Dispensed Refills Start Date End Da te methylphenidate (RITALIN;METHYLIN) 20 mg tablet Take 2 Tabs by mouth daily. Earliest Fill Date: 12/19/13 60 Tab 0 12/19/2013 01/15/2014 methylphenidate (RITALIN;METHYLIN) 10 mg tablet Take one tab in the afternoon for narcolepsy. 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 * Telephone Encounter - Leann Domingo - 12/18/2013 1437 EDT Patient needs a refill for Riailin 20 mg, two in the morning and Ritalin 10 mg, one every afternoon. Patient would like to pick them up. She was hoping she could pick these up tomorrow. documented in this encounter Plan of Treatment Upcoming Encounters Date Type Department Care Team (Late st Contact Info) Description 06/29/2024 14:15 EDT Office Visit [facility] Medicine [facility] [address] [place] [address] Jean Munoz MD [address] [place] [phone] documented as of this encounter Visit Diagnoses Not on filedocumented in this encounter Discontinued Medications Medication Sig Discontinue Reason Start Date End Da te methylphenidate (RITALIN;METHYLIN) 10 mg tablet Take one tab in the afternoon for narcolepsy. Earliest Fill Date: 11/21/13 Reorder 11/21/2013 12/18/2013 methylphenidate (RITALIN;METHYLIN) 20 mg tablet Take 2 Tabs by mouth daily. Earliest Fill Date: 11/21/13 Reorder 11/21/2013 12/18/2013 documented as of this encounter Care Teams Concessionist Relationship Specialty Start Date End Date Jean Munoz MD [address] [place] [phone] PCP - General 12/31/08 Manny Rizzo MD [address] [place] [phone] 04/20/10 documented as of this encounter
--- OUTSIDE RECORDS SUMMARY | 2024-06-10 07:26 | XMS_ITS | Encounter Summary ---
Author Organization [facility] Address [address] [place] [address] Care Team Providers Care Automotive Teacher Name Role Phone Jean Munoz MD Primary Care Provider Manny Rizzo MD Unavailable Reason for Visit * Reason Onset Date Comments Medications Refill 02/08/2014 Encounter Details Date Type Department Care Team (Late st Contact Info) Description 02/08/2014 Telephone [facility] Sleep Program - [address] [phone] Corrina Ac, RN [address] [place] [address] Medications Refill Social History Tobacco Use Types [...] Date: 02/13/14 60 Tab 0 02/13/2014 03/12/2014 methylphenidate (RITALIN;METHYLIN) 10 mg tablet Take one tab in the afternoon for narcolepsy. 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 documented in this encounter Plan of Treatment Upcoming Encounters Date Type Department Care Team (Late st Contact Info) Description 06/29/2024 14:[address] [facility] Medicine [facility] [address] [place], [place] [phone] Jean Munoz MD [address] [place] [phone] documented as of this encounter Visit Diagnoses Not on filedocumented in this encounter Discontinued Medications Medication Sig Discontinue Reason Start Date End Da te methylphenidate (RITALIN;METHYLIN) 10 mg tablet Take one tab in the afternoon for narcolepsy. Earliest Fill Date: 01/16/14 Reorder 01/16/2014 02/08/2014 methylphenidate (RITALIN;METHYLIN) 20 mg tablet Take 2 Tabs by mouth daily. Earliest Fill Date: 01/16/14 Reorder 01/16/2014 02/08/2014 documented as of this encounter Care Teams Automotive Teacher Relationship Specialty Start Date End Date Jean Munoz MD [address] [place] [phone] PCP - General 12/31/08 Manny Rizzo MD [address] [place] [phone] 04/20/10 documented as of this encounter
--- OUTSIDE RECORDS SUMMARY | 2024-06-10 07:26 | XMS_ITS | Encounter Summary ---
Author Organization [facility] Address [address] [place] [address] Care Team Providers Care Pipe Production Worker Name Role Phone Jean Munoz MD Primary Care Provider Manny Rizzo MD Unavailable Reason for Visit * Reason Comments Other Encounter Details Date Type Department Care Team (Late st Contact Info) Description 02/10/2014 [facility] Pulmonology & Critical Care - [facility] [address] [place], [place] [phone] Jaenette Virk MD [address] [facility], [address] [place] [phone] Other Social History Tobacco Use [...] BY MOUTH ONE TIME DAILY 30 Tab 0 02/10/2014 02/12/2014 documented in this encounter Miscellaneous Notes * Telephone Encounter - Odalys Wick - 02/12/2014 1057 EDT Escribed Daliresp to Nikolas in [place] 02/12/14. Escribed 30 days worth as last MD note does not indicate how long to continue medication and pt will be seeing Dr. Virk this month, they can discuss this and order with more refills. documented in this encounter Plan of Treatment Upcoming Encounters Date Type Department Care Team (Late st Contact Info) Description 06/29/2024 14:15 EDT Office Visit [facility] Medicine [facility] [address] [place] [address] Jean Munoz MD [address] [place] [phone] documented as of this encounter Visit Diagnoses Not on filedocumented in this encounter Discontinued Medications Medication Sig Discontinue Reason Start Date End Da te roflumilast (DALIRESP) 500 mcg tablet Take 1 Tab by mouth daily. Reorder 06/21/2013 02/10/2014 documented as of this encounter Care Teams Pipe Production Worker Relationship Specialty Start Date End Date Jean Munoz MD [address] [place] [phone] PCP - General 12/31/08 Manny Rizzo MD [address] [place] [phone] 04/20/10 documented as of this encounter
--- OUTSIDE RECORDS SUMMARY | 2024-06-10 07:26 | XMS_ITS | Encounter Summary ---
Author Organization [facility] Address [address] [place] [address] Care Team Providers Care Avionics Electronics Technician Name Role Phone Jean Munoz MD Primary Care Provider Manny Rizzo MD Unavailable Encounter Details Date Type Department Care Team (Late st Contact Info) Description 02/15/2014 Orders Only [facility] Pulmonology & Critical Care - [facility] [address] [place], [place] [phone] Jeanette Virk MD [address] [facility], [address] [place] [phone] Social History Tobacco Use Types [...] Office Visit [facility] [address] [place], [place] [phone] Jean Munoz MD [address] [place] [phone] documented as of this encounter Visit Diagnoses Not on filedocumented in this encounter Care Teams Avionics Electronics Technician Relationship Specialty Start Date End Date Jean Munoz MD [address] [place] [phone] PCP - General 12/31/08 Manny Rizzo MD [address] [place] [phone] 04/20/10 documented as of this encounter
--- OUTSIDE RECORDS SUMMARY | 2024-06-10 07:26 | XMS_ITS | Encounter Summary ---
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); Tremor Social History Tobacco Use Types Packs/Day Years [...] Sign Reading Time Taken Comments Blood Pressure 134/76 01/23/2014 1147 EDT Pulse 72 01/23/2014 1147 EDT Temperature - - Respiratory Rate 16 01/23/2014 1147 EDT Oxygen Saturation 98% 01/23/2014 1147 EDT Inhaled Oxygen Concentration - - Weight 89.8 kg (198 lb) 01/23/2014 1147 EDT Height 162.6 cm (5' 4.02) 01/23/2014 1147 EDT Body Mass Index 33.97 01/23/2014 1147 EDT documented in this encounter Functional Status Cognitive Status Response Date of Assessm ent Because of a physical, menta l, or emotional condition, do you have serious difficulty concentrating, remembering, or making decisions? (5 years old or older) Yes 02/26/2013 documented as of this encounter Progress Notes * Tiana Bacon MD - 01/23/2014 1354 EDT HPI: Ms. Viera is a 53 year old W with a history of narcolepsy who presents for follow up. At her last visit, she reported having dizzy spells and loss of balance. Work up was pursed with no definitivefindings. She has been seen by PT which she states has been helpful for her sense of balance. She continues to experience ringing in her ears which has been present for a couple of years. It has gotten worse, and is particularly bothersome when she sleeps. She had been seen by audiology and ENT, but had not followed up with them. Her new complaint today is tremor. She shows with outstretched arms, subtle tremor in both hands, but states that it can be worse. It has only come on in the past few months. She states she does not take caffeine, and has not had any changes to her medications. The tremor does not interfere with dressing, eating, or otherwise limit her function. With regards to narcolepsy, she has had no issues with methylphenidate and feels that her sleepiness is well controlled. Outpatient Prescriptions Marked as Taking for the 01/23/14 encounter (Office Visit) with Tiana Bacon MD [...] days for Pain. 112 Tab 0 ??? [START ON 02/07/2014] HYDROcodone-acetaminophen (NORCO) 5-325 mg tablet Take 1-2 [...] afternoon for narcolepsy. Earliest Fill Date: 01/16/14 30 Tab 0 ??? methylphenidate (RITALIN;METHYLIN) 20 mg tablet Take 2 Tabs by mouth daily. Earliest Fill Date:01/16/14 60 Tab 0 ??? mometasone (NASONEX) 50 [...] 3 times daily. 270 Each 1 ??? roflumilast (DALIRESP) 500 mcg tablet Take 1 Tab by mouth daily. 30 Tab 5 ??? rOPINIRole (REQUIP) 2 mg tablet Take [...] needed for Sleep. 30 Tab 5 No Facility-Administered Medications for the 01/23/14 encounter (Office Visit) with Tiana Bacon MD. Allergies Allergen Reactions ??? Toradol (Ketorolac Tromethamine) Hives ??? Motrin (Ibuprofen) Itching ROS: negative except for pertinent positives in the HPI. EXAM: Filed Vitals: 01/23/14 1147 BP: 134/76 Pulse: 72 Resp: 16 Height: 162.6 cm (64.02) Weight: 89.812 kg (198 lb) SpO2: 98% Heart: RRR, normal S1, S2 Lungs: clear to auscultation bilaterally Limited neuro: No resting tremor seen in BUE. No head tremor. Mild tremor in both hand when arms outstretched. No cogwheel bilaterally. No tremor present in BUE when gait is tested. Symmetric bilateral arm swing. Does not appear bradykinetic. A/P: Ms. Viera is a 53 year old W with a history of narcolepsy without cataplexy who presents for follow up. Her narcolepsy remains well treated on methylphenidate. Her new concern today is tremor. Sheis not able to provide much detail about the context of the tremor. It does not appear to affect her daily activities, so for now, will will just observe it. With regards to her report of tinnitus, would recommend that she follow up with ENT for assessment. Follow up 1 year or sooner if indicate. Tiana Bacon MD 01/23/2014 14:01 documented in this encounter Plan of Treatment Upcoming Encounters Date Type Department Care Team (Late st Contact Info) Description 06/29/2024 14:15 EDT Office Visit [facility] [address] [place] [address] Jean Munoz MD [address] [place] [phone] documented as of this encounter Visit Diagnoses Diagnosis Narcolepsy without cataplexy(347.00)- Primary Narcolepsy without cataplexy Tremor Abnormal involuntary movements Screening for osteoporosis- Primary Special screening for osteoporosis Primary narcolepsy without cataplexy Chronic pain syndrome Chronic low back pain Lumbago Chronic use of opiate for therapeutic purpose Pain medication agreement Encounter for long-term (current) use of other medications Screen for colon cancer Special screening for malignant neoplasms, colon documented in this encounter Care Teams Statistical Financial Analyst Relationship Specialty Start Date End Date Jean Munoz MD [address] [place] [phone] PCP - General 12/31/08 Manny Rizzo MD [address] [place] [phone] 04/20/10 documented as of this encounter
--- OUTSIDE RECORDS SUMMARY | 2024-06-10 07:26 | XMS_ITS | Encounter Summary ---
Author Organization [facility] Address [address] [place] [address] Care Team Providers Care Gas Compressor Operator Name Role Phone Jean Munoz MD Primary Care Provider Manny Rizzo MD Unavailable Reason for Visit * Reason Onset Date Comments Hospital Discharge Follow Up 02/20/2014 Encounter Details Date Type Department Care Team (Late st Contact Info) Description 02/20/2014 Telephone [facility] [address] [place] [address] Yadira Mccauley, [facility] Hospital Discharge Follow Up Social History Tobacco [...] Telephone Encounter - Yadira Mccauley RN - 02/20/2014 0912 EDT Hospital Discharge Follow Up: Reason for admission: COPD exacerbation, acute hypoxic respiratory failure Symptoms improving? yes Discharge instructions available? yes Medications Reviewed/prescriptions filled? no Support at home? Yes, neighbors come and visit Home health service/issues? yes Questions about discharge instructions? no Follow-up visit scheduled? Yes, has appt on 03/02/14 with PCP and does not want an earlier appt at this time Education/Plan: Patient Education Topic: hospital to home discharge Method: Verbal Taught to: Patient Barriers: None Outcomes: independent and verbalized understanding Signature:Yadira Mccauley RN Yadira Mccauley RN 02/20/2014 documented in this encounter Plan of Treatment Upcoming Encounters Date Type Department Care Team (Late st Contact Info) Description 06/29/2024 14:15 EDT Office Visit [facility] Medicine [facility] [address] [place] [address] Jean Munoz MD [address] [place] [phone] documented as of this encounter Visit Diagnoses Not on filedocumented in this encounter Care Teams Gas Compressor Operator Relationship Specialty Start Date End Date Jean Munoz MD [address] [place] [phone] PCP - General 12/31/08 Manny Rizzo MD [address] [place] [phone] 04/20/10 documented as of this encounter
--- OUTSIDE RECORDS SUMMARY | 2024-06-10 07:26 | XMS_ITS | Encounter Summary ---
Author Organization [facility] Address [address] [place] [address] Care Team Providers Care Telemetry Technician Name Role Phone Jean Munoz MD Primary Care Provider Manny Rizzo MD Unavailable Reason for Visit * Reason Onset Date Comments Medications Refill 01/15/2014 Encounter Details Date Type Department Care Team (Late st Contact Info) Description 01/15/2014 Telephone [facility] Sleep Program - [address] [phone] Tiana Bacon [address] [place] [phone] Medications Refill Social History Tobacco Use [...] by mouth daily. Earliest Fill Date: 01/16/14 60 Tab 0 01/16/2014 02/08/2014 methylphenidate (RITALIN;METHYLIN) 10 mg tablet Take one tab in the afternoon for narcolepsy. Earliest Fill Date: 01/16/14 30 Tab 0 01/16/2014 02/08/2014 documented in this encounter Miscellaneous Notes * Telephone Encounter - Corrina Ac RN - 01/15/2014 1443 EDT Spoke with patient and let her know her (ritlain) prescriptions ready for poultry picker at the Sleep Center. * Telephone Encounter - Barbara Gimenez - 01/15/2014 1223 EDT PT needs refill on Ritalin 20mg and Ritalin 10mg; PT will poultry picker at front [facility] on Wednesday. documented in this encounter Plan of Treatment Upcoming Encounters Date Type Department Care Team (Late st Contact Info) Description 06/29/2024 14:15 EDT Office Visit [facility] [address] [place] [address] Jean Munoz MD [address] [place] [phone] documented as of this encounter Visit Diagnoses Not on filedocumented in this encounter Discontinued Medications Medication Sig Discontinue Reason Start Date End Da te methylphenidate (RITALIN;METHYLIN) 10 mg tablet Take one tab in the afternoon for narcolepsy. Earliest Fill Date: 12/19/13 Reorder 12/19/2013 01/15/2014 methylphenidate (RITALIN;METHYLIN) 20 mg tablet Take 2 Tabs by mouth daily. Earliest Fill Date: 12/19/13 Reorder 12/19/2013 01/15/2014 documented as of this encounter Care Teams Telemetry Technician Relationship Specialty Start Date End Date Jean Munoz MD [address] [place] [phone] PCP - General 12/31/08 Manny Rizzo MD [address] [place] [phone] 04/20/10 documented as of this encounter
--- OUTSIDE RECORDS SUMMARY | 2024-06-10 07:26 | XMS_ITS | Encounter Summary ---
Author Organization [facility] Address [address] [place] [address] Care Team Providers Care Stamping Press Operator Name Role Phone Jean Munoz MD Primary Care Provider Manny Rizzo MD Unavailable Reason for Visit * Reason Onset Date Comments Other 03/07/2014 discharge from p hysical therapy Encounter Details Date Type Department Care Team (Late st Contact Info) Description 03/07/2014 Telephone [facility] [address] [place] [address] Jean Munoz MD [address] [place] [phone] Other (discharge from physical therapy) Social History Tobacco Use Types Packs/Day Years [...] * Telephone Encounter - Madelaine Nava - 03/07/2014 1622 EDT Pt will be discharged from physical therapy as of today 03/07. Pt has met her goals. documented in this encounter Plan of Treatment Upcoming Encounters Date Type Department Care Team (Late st Contact Info) Description 06/29/2024 14:15 EDT Office Visit [facility] [address] [place] [address] Jean Munoz MD [address] [place] [phone] documented as of this encounter Visit Diagnoses Not on filedocumented in this encounter Care Teams Stamping Press Operator Relationship Specialty Start Date End Date Jean Munoz MD [address] [place] [phone] PCP - General 12/31/08 Manny Rizzo MD [address] [place] [phone] 04/20/10 documented as of this encounter
--- OUTSIDE RECORDS SUMMARY | 2024-06-10 07:26 | XMS_ITS | Encounter Summary ---
Author Organization [facility] Address [address] [place] [address] Care Team Providers Care Electrical Repairer Name Role Phone Jean Munoz MD Primary Care Provider Manny Rizzo MD Unavailable Reason for Visit * Reason Comments Medication Management To include refills . Encounter Details Date Type Department Care Team (Latest Contact Info) Description 12/13/2013 10:00 EDT Office Visit Formerly named [facility] [address] [place] [address] Jean Munoz MD [address] [place] [phone] Gastroesophageal reflux disease (Primary Dx); Insomnia; Migraine; Depression; Asthma; Seasonal allergic rhinitis; COPD (chronic obstructive pulmonary disease) ([facility]) ([facility]); Rosacea; Low back pain; Left knee pain; Chronic back pain; Restless legs syndrome Social History Tobacco Use Types Packs/Day [...] Reading Time Taken Comments Blood Pressure 118/76 12/13/2013 1024 EDT Pulse 80 12/13/2013 1024 EDT Temperature 36.5 ??C (97.7 ??F) 12/13/2013 1024 EDT Respiratory Rate 12 12/13/2013 1024 EDT Oxygen Saturation - - Inhaled Oxygen Concentration - - Weight 91.6 kg (202 lb) 12/13/2013 1024 EDT Height 162.6 cm (5' 4) 12/13/2013 1024 EDT Body Mass Index 34.67 12/13/2013 1024 EDT documented in this encounter Functional Status [...] for Pain. 112 Tab 0 02/07/2014 03/30/2014 HYDROcodone-acetaminoph en (NORCO) 5-325 mg tablet Take 1-2 Tabs by mouth every 6 hours as needed for 28 days for Pain. 112 Tab 0 01/10/2014 03/02/2014 HYDROcodone-acetaminoph en (NORCO) 5-325 mg tablet Take 1-2 Tabs by mouth every 6 hours as needed for 28 days for Pain. 112 Tab 0 12/13/2013 02/16/2014 rOPINIRole (REQUIP) 2 mg tabletIndications:Restl ess legs syndrome Take 1 Tab by mouth at bedtime. 90 Tab 3 12/13/2013 01/15/2015 pregabalin (LYRICA) 150 mg capsuleIndications:Edge Bonder majo back pain Take 1 Cap by mouth 3 times daily. 270 Each 1 12/13/2013 03/30/2014 tiotropium (SPIRIVA WITH HANDIHALER) 18 mcg inhalation capsuleIndications:COPD (chronic obstructive pulmonary disease) ([facility]) Inhale 1 Cap as directed daily. 90 Cap 3 12/13/2013 02/12/2015 omeprazole (PRILOSEC) 40 mg capsuleIndications:Benja roesophageal reflux disease Take 1 Cap by mouth daily. 180 Cap 3 12/13/2013 03/30/2014 fexofenadine (JUDITH) 180 mg tabletIndications:Seaso nal allergic rhinitis Take 1 Tab by mouth daily. 90 Tab 3 12/13/2013 04/10/2015 levalbuterol (XOPENEX HFA) 45 mcg/actuation inhaler Take 2 puffs by mouth as needed for shortness of breath. 3 Inhaler 3 12/13/2013 10/16/2014 baclofen (LIORESAL) 10 mg tabletIndications:Low back pain Take 1 Tab by mouth 3 times daily as needed (mucles tightness). 180 Tab 0 12/13/2013 04/10/2015 doxycycline (VIBRA-TABS) 100 mg tabletIndications:Rosac ea Take 1 Tab by mouth daily. 90 Tab 3 12/13/2013 01/15/2015 fluticasone-salmeterol (ADVAIR HFA) 230-21 mcg/actuation inhalerIndications:Asth ma,COPD (chronic obstructive pulmonary disease) ([facility]) Inhale 2 Puffs as directed 2 times daily. 3 Inhaler 3 12/13/2013 02/12/2015 mometasone (NASONEX) 50 mcg/actuation nasal sprayIndications:Season al allergic rhinitis 2 Sprays by nasal route daily. 3 Inhaler 3 12/13/2013 04/10/2015 montelukast (SINGULAIR) 10 mg tabletIndications:Asthm a Take 1 Tab by mouth daily. 90 Tab 3 12/13/2013 02/12/2015 nortriptyline (PAMELOR) 75 mg capsuleIndications:Depr ession Take 1 Cap by mouth daily. 90 Each 3 12/13/2013 04/10/2015 sertraline (ZOLOFT) 100 mg tabletIndications:Depre ssion Take 2 Tabs by mouth daily. 180 Tab 3 12/13/2013 02/04/2015 sumatriptan (IMITREX) 50 mg tabletIndications:Migra ine Take 1 Tab by mouth once as needed for 1 dose for Migraine. 9 Tab 1 12/13/2013 03/12/2014 zolpidem (AMBIEN) 5 mg tabletIndications:Insom yesi Take 1 Tab by mouth at bedtime as needed for Sleep. 30 Tab 5 12/13/2013 06/11/2014 ondansetron (ZOFRAN) 4 mg tabletIndications:Gastr oesophageal reflux disease Take 1 Tab by mouth daily as needed for Nausea. 30 Tab 1 12/13/2013 04/10/2015 documented in this encounter Progress Notes * Jean Munoz MD - 12/13/2013 1107 EDT Subjective: Patient ID: Liset Viera is an 52 y.o. female. Chief Complaint Patient presents with ??? Medication Management To include refills. HPI Here for med refills Overall doing well Active issues still include chronic pain Back pain and knee pain unchanged Denies side effects from meds Meds reconciled in detail Has F/U visit pending Patient Active Problem List Diagnosis ??? [...] 03/01/2013 ??? COPD (chronic obstructive pulmonary disease) Current Outpatient Prescriptions on File Prior to Visit Medication Sig Dispense Refill ??? albuterol (PROVENTIL HFA) 90 mcg/actuation inhaler Inhale 1-2 Puffs as directed every 4 hours. 6.7 g 5 ??? baclofen (LIORESAL) 10 mg tablet Take 1 Tab by mouth 3 times daily as needed. 180 Tab 0 ??? cycloSPORINE (RESTASIS) 0.05 % ophthalmic emulsion Place 1 Drop into both eyes 2 times daily. 2Tray 11 ??? docusate sodium (COLACE) 100 mg capsule Take 1 Cap by mouth 2 times daily as needed for Constipation. ??? doxycycline (VIBRA-TABS) 100 mg tablet Take 1 Tab by mouth daily. 90 Tab 2 ??? fexofenadine (JUDITH) 180 mg tablet Take 1 Tab by mouth daily. 60 Each 0 ??? fluticasone-salmeterol (ADVAIR HFA) 230-21 mcg/actuation inhaler Inhale 2 Puffs as directed 2 times daily. 3 Inhaler 0 ??? HYDROcodone-acetaminophen (LORTAB) 5-500 mg tablet [...] for 28 days. 112 Tab 0 ??? Hydrocodone-Acetaminophen 5-500 mg capsule Take by mouth every 6 hours as needed. ??? hydroxypropyl methylcellulose (ISOPTO TEARS) 0.5 % ophthalmic solution Place 1 Drop into both eyes 5 times daily. ??? ipratropium-albuterol (DUONEB) 0.5 mg-3 mg(2.5 mg base)/3 mL nebulizer solution Take 3 mL by nebulization every 6 hours as needed for Wheezing. 2 Box 0 ??? methylphenidate (RITALIN;METHYLIN) 10 mg tablet Take one tab in the afternoon for narcolepsy. Earliest Fill Date: 11/21/13 30 Tab 0 ??? methylphenidate (RITALIN;METHYLIN) 20 mg tablet Take 2 Tabs by mouth daily. Earliest Fill Date:11/21/13 60 Tab 0 ??? mometasone (NASONEX) 50 mcg/actuation nasal spray 2 Sprays by nasal route daily. 2 Inhaler 0 ??? montelukast (SINGULAIR) 10 mg tablet Take 1 Tab by mouth daily. 90 Each 2 ??? nortriptyline (PAMELOR) 75 mg capsule Take 1 Cap by mouth daily. 60 Each 0 ??? omeprazole (PRILOSEC) 40 mg capsule Take 1 Cap by mouth daily. 180 Cap 2 ??? ondansetron (ZOFRAN) 4 mg tablet Take 1 Tab by mouth daily as needed for Nausea. 60 Tab 0 ??? pregabalin (LYRICA) 150 mg capsule Take 1 Cap by mouth 3 times daily. 270 Each 1 ??? roflumilast (DALIRESP) 500 mcg tablet Take 1 Tab by mouth daily. 30 Tab 5 ??? rOPINIRole (REQUIP) 2 mg tablet Take 1 Tab by mouth at bedtime. 90 Tab 2 ??? sertraline (ZOLOFT) 100 mg tablet Take 2 Tabs by mouth daily. 180 Tab 2 ??? sumatriptan (IMITREX) 50 mg tablet Take 1 Tab by mouth once as needed for 1 dose for Migraine. 9 Each 0 ??? tamsulosin (FLOMAX) 0.4 mg capsule Take one capsule by mouth every day (take it half an hour after supper) 90 Cap 1 ??? tiotropium (SPIRIVA WITH HANDIHALER) 18 mcg inhalation capsule Inhale 1 Cap as directed daily. 90 Cap 2 ??? zolpidem (AMBIEN) 5 mg tablet Take 1 Tab by mouth at bedtime as needed for Sleep. 30 Each 2 No current facility-administered medications on file prior to visit. Allergies Allergen Reactions ??? Toradol (Ketorolac Tromethamine) Hives ??? Motrin (Ibuprofen) Itching Social History Substance Use Topics ??? Smoking status: Former Smoker -- 2.00 packs/day for 35 years Types: Cigarettes Quit date: 10/14/2010 ??? Smokeless tobacco: Never Used ??? Alcohol Use: No Comment: rarely ROS - See HPI Objective: BP 118/76 Pulse 80 Temp(Src) 36.5 ??C (97.7 ??F) (Tympanic) Resp 12 Ht 162.6 cm (64) Wt 91.627 kg (202 lb) BMI 34.66 kg/m2 LMP 01/11/1987 Physical Exam deferred Assessment: Plan: Liset was seen today for medication management. Diagnoses and associated orders for this visit: Gastroesophageal reflux disease - ondansetron (ZOFRAN) 4 mg tablet; Take 1 Tab by mouth daily as needed for Nausea. Insomnia - zolpidem (AMBIEN) 5 mg tablet; Take 1 Tab by mouth at bedtime as needed for Sleep. Migraine - sumatriptan (IMITREX) 50 mg tablet; Take 1 Tab by mouth once as needed for 1 dose for Migraine. Depression - sertraline (ZOLOFT) 100 mg tablet; Take 2 Tabs by mouth daily. - nortriptyline (PAMELOR) 75 mg capsule; Take 1 Cap by mouth daily. Asthma - montelukast (SINGULAIR) 10 mg tablet; Take 1 Tab by mouth daily. - fluticasone-salmeterol (ADVAIR HFA) 230-21 mcg/actuation inhaler; Inhale 2 Puffs as directed 2 times daily. Seasonal allergic rhinitis - mometasone (NASONEX) 50 mcg/actuation nasal spray; 2 Sprays by nasal route daily. COPD (chronic obstructive pulmonary disease) - fluticasone-salmeterol (ADVAIR HFA) 230-21 mcg/actuation inhaler; Inhale 2 Puffs as directed 2 times daily. Rosacea - doxycycline (VIBRA-TABS) 100 mg tablet; Take 1 Tab by mouth daily. Low back pain - baclofen (LIORESAL) 10 mg tablet; Take 1 Tab by mouth 3 times daily as needed. Left knee pain - HYDROcodone-acetaminophen (LORTAB) 5-500 mg tablet; Take 1 Tab by mouth every 6 hours as needed for 28 days for Pain. Patient Education Topic: as above Method: Verbal Taught to: Patient Barriers: None Outcomes: Verbalized understanding documented in this encounter Plan of Treatment Upcoming Encounters Date Type Department Care Team (Late st Contact Info) Description 06/29/2024 14:15 EDT Office Visit Formerly named [facility] [address] [place] [address] Jean Munoz MD [address] [place] [phone] documented as of this encounter Visit Diagnoses Diagnosis Gastroesophageal reflux disease- Primary Esophageal reflux Insomnia Insomnia, unspecified Migraine Migraine, unspecified, without mention of intractable migraine without mention of status migrainosus Depression Depressive disorder, not elsewhere classified Asthma Unspecified asthma Seasonal allergic rhinitis Allergic rhinitis, cause unspecified COPD (chronic obstructive pulmonary disease) ([facility]) Chronic airway obstruction, not elsewhere classified Rosacea Low back pain Lumbago Left knee pain Pain in joint, lower leg Chronic back pain Backache, unspecified Restless legs syndrome Restless legs syndrome [...] Reason Start Date End Da te albuterol (PROVENTIL HFA) 90 mcg/actuation inhaler Inhale 1-2 Puffs as directed every 4 hours. Patient Stopped Taking 11/14/2013 12/13/2013 HYDROcodone-acetaminop hen (LORTAB) 5-500 mg tabletIndications:Left knee pain Take 1 Tab by mouth every 6 hours as needed for Pain for 28 days. Dose adjustment 11/16/2013 12/13/2013 Hydrocodone-Acetaminop hen 5-500 mg capsule Take by mouth every 6 hours as needed. Dose adjustment 12/13/2013 ondansetron (ZOFRAN) 4 mg tabletIndications:Benja roesophageal reflux disease Take 1 Tab by mouth daily as needed for Nausea. Reorder 06/13/2013 12/13/2013 zolpidem (AMBIEN) 5 mg tabletIndications:Inso mnia Take 1 Tab by mouth at bedtime as needed for Sleep. Reorder 09/21/2013 12/13/2013 sumatriptan (IMITREX) 50 mg tabletIndications:Migr lu Take 1 Tab by mouth once as needed for 1 dose for Migraine. Reorder 11/13/2013 12/13/2013 sertraline (ZOLOFT) 100 mg tabletIndications:Depr ession Take 2 Tabs by mouth daily. Reorder 04/10/2013 12/13/2013 nortriptyline (PAMELOR) 75 mg capsuleIndications:Dep ression Take 1 Cap by mouth daily. Reorder 03/02/2013 12/13/2013 montelukast (SINGULAIR) 10 mg tabletIndications:Asth ma Take 1 Tab by mouth daily. Reorder 04/10/2013 12/13/2013 mometasone (NASONEX) 50 mcg/actuation nasal sprayIndications:Seaso nal allergic rhinitis 2 Sprays by nasal route daily. Reorder 03/02/2013 12/13/2013 fluticasone-salmeterol (ADVAIR HFA) 230-21 mcg/actuation inhalerIndications:Ast hma,COPD (chronic obstructive pulmonary disease) ([facility]) Inhale 2 Puffs as directed 2 times daily. Reorder 08/16/2013 12/13/2013 doxycycline (VIBRA-TABS) 100 mg tabletIndications:Elaine cea Take 1 Tab by mouth daily. Reorder 04/10/2013 12/13/2013 baclofen (LIORESAL) 10 mg tabletIndications:Low back pain Take 1 Tab by mouth 3 times daily as needed. Reorder 03/02/2013 12/13/2013 levalbuterol (XOPENEX HFA) 45 mcg/actuation inhaler Inhale 2 Puffs as directed every 6 hours as needed for Wheezing. Reorder 12/13/2013 fexofenadine (JUDITH) 180 mg tabletIndications:Seas onal allergic rhinitis Take 1 Tab by mouth daily. Reorder 03/02/2013 12/13/2013 omeprazole (PRILOSEC) 40 mg capsuleIndications:Gas troesophageal reflux disease Take 1 Cap by mouth daily. 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 Reorder 06/05/2013 12/13/2013 pregabalin (LYRICA) 150 mg capsuleIndications:Chr onic back pain Take 1 Cap by mouth 3 times daily. Reorder 06/29/2013 12/13/2013 rOPINIRole (REQUIP) 2 mg tabletIndications:Rest less legs syndrome Take 1 Tab by mouth at bedtime. Reorder 09/21/2013 12/13/2013 documented as of this encounter Historical Medications * This list may reflect changes made after this encounter. Medication Sig Dispensed Refills Start Date End Date levalbuterol (XOPENEX HFA) 45 mcg/actuation inhaler Inhale 2 Puffs as directed every 6 hours as needed for Wheezing. 12/13/2013 added in this encounter Care Teams Electrical Repairer Relationship Specialty Start Date End Date Jean Munoz MD [address] [place] [phone] PCP - General 12/31/08 Manny Rizzo MD [address] [place] [phone] 04/20/10 documented as of this encounter
--- OUTSIDE RECORDS SUMMARY | 2024-06-10 07:27 | XMS_ITS | Encounter Summary ---
Author Organization [facility] Address [address] [place] [address] Care Team Providers Care Head Boys Golf Coach Name Role Phone Jean Munoz MD Primary Care Provider Manny Rizzo MD Unavailable Encounter Details Date Type Department Care Team (Late st Contact Info) Description 06/14/2013 Abstract [facility] [address] [place] [address] Jean Munoz MD [address] [place] [phone] Social History Tobacco Use Types Packs/Day Years Used Date Smoking Tobacco: Passive Smoke Exposure - Never Smoker Cigarettes 2 35 - 10/14/2010 Smokeless Tobacco: Never Alcohol Use Standard Drinks/Week Comments Yes 0 (1 standard drink = 0.6 oz [...] Yes 02/26/2013 documented as of this encounter Plan of Treatment Upcoming Encounters Date Type Department Care Team (Late st Contact Info) Description 06/29/2024 14:15 EDT Office Visit [facility] [address] [place], [place] [phone] Jean Munoz MD [address] [place] [phone] documented as of this encounter Visit Diagnoses Not on filedocumented in this encounter Care Teams Head Boys Golf Coach Relationship Specialty Start Date End Date Jean Munoz MD [address] [place] [phone] PCP - General 12/31/08 Manny Rizzo MD [address] [place] [phone] 04/20/10 documented as of this encounter
--- OUTSIDE RECORDS SUMMARY | 2024-06-10 07:27 | XMS_ITS | Encounter Summary ---
Author Organization [facility] Address [address] [place] [address] Care Team Providers Care Photography And Prints Curator Name Role Phone Jean Munoz MD Primary Care Provider Manny Rizzo MD Unavailable Reason for Visit * Reason Comments Dry Eye Pt says that eyes ar e feeling better. Not leaking or crusty but still red. People look at her funny. Restasis 2/2. AT's often. Liquigel HS/HS. Also using an Antibiotic with a steroid (Tobradex) in right eye q6 hrs. Left eye uses Zaditor q6 hrs also. Used warm compresses right for the stye. Says still feels like FBS right eye. Encounter Details Date Type Department Care Team (Late st Contact Info) Description 11/07/2013 9:[address] [facility] [place] [address] [place] [address] Giovanni Rodriguez MD [address] [facility], [address] [place] [address] Social History Tobacco Use Types [...] Yes 02/26/2013 documented as of this encounter Discharge Diagnoses Diagnosis 374.89 DISORDERS OF EYELID NEC[ICD-9-CM] 695.3 ROSACEA[ICD-9-CM] 372.31 ROSACEA CONJUNCTIVITIS[ICD-9-CM] 375.15 TEAR FILM INSUFFIC NOS[ICD-9-CM] 373.00 BLEPHARITIS NOS[ICD-9-CM] documented in this encounter Progress Notes * Giovanni Rodriguez MD - 11/07/2013 0857 EST . Base Eye Exam Visual Acuity Right Left Dist cc 20/25 20/30-1 Dist ph cc NI 20/25 Method: Snellen - Linear Correction: Glasses Pupils Dark React APD Right 7 Minimal None Left 7 Minimal None Neuro/Psych Oriented x3: Yes Mood/Affect: Normal Cornea examined, all 5 layers. ROS, Medications, Allergies reviewed.. Lids, lashes, lacrimal and orbit examined. All normal unless otherwise noted. This note has been dictated and scanned. IMP: Liset was seen today for dry eye. 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 Use Zaditor 2/2. Continue Restasis 2/2 and AT's often. Cont Liquigel HS/HS. I am scribing for Giovanni Rodriguez MD while he is personally performing the service. JAZMÍN Xiong (Scribe) documented in this encounter Consult Notes * Giovanni Rodriguez MD - 11/07/2013 1013 EST DIVISION OF OPHTHALMOLOGY CONSULTATION - 11/07/2013 [place] [address] Munoz: Our mutual patient returns today. We have been treating her because of a presumed pyogenic granuloma underneath the right upper lid and ocular discomfort. She now is on Restasis twice a day, artificial tears during the day frequently, as well as LiquiGel at bedtime in each eye. She has been using Za ditor twice a day in the left eye and TobraDex 4 times a day in the right eye. The bottom line is she is more comfortable and not having as much discomfort, but the eyes are still somewhat red. The pertinent area that we have looked at is the pretarsal conjunctiva of the right upper lid. Specifically, the tarsal levator junction on the pretarsal conj there is an area that I believe is a nearly resolved pyogenic granuloma. There are still a couple dilated vessels there. This has been much more of a plexiform complex of vessels in the past that has responded each time to topical steroids. I previously had her see Dr Rivera and no surgical intervention was indicated or carried out. It may be that at some point this area may require some surgical intervention, but fortunately it has responded each time to the therapy that we have been using. Dr Rivera, she did see you about a year ago because of this and it did resolve that time as well. I presume this is an old chalazion with residual pyogenic granuloma. Certainly, we will call on you, Dr Rivera, if this continues to be a problem and does not respond appropriately to topical medication. At this point, to resummarize, the patient will stop the TobraDex in the right eye. Will continue with lubricants, as well as Restasis and will use Zaditor twice a day in each eye. I am going to leave things a bit open. I will see the patient if the discomfort returns or if thereis any bleeding from the eye. Sincerely, Giovanni Rodriguez MD 09 12 AM - Giovanni Rodriguez MD cn Dictation ID: [id number] cc: Siena Rivera MD, [address] [place] [address] Jean Munoz MD, [place] [address] documented in this encounter Plan of Treatment Upcoming Encounters Date Type Department Care Team (Late st Contact Info) Description 06/29/2024 14:15 EDT Office Visit [facility] [place] [address] [place] [address] Jean Munoz MD [address] [place] [phone] documented as of this encounter Visit Diagnoses Diagnosis Tear film insufficiency, unspecified- Primary Rosacea Pyogenic granuloma of eyelid Other disorders of eyelid Blepharitis of both eyes Blepharitis, unspecified Impaired glucose tolerance Impaired glucose tolerance test Screening for osteoporosis- Primary Special screening for osteoporosis Primary narcolepsy without cataplexy Chronic pain syndrome Chronic low back pain Lumbago Chronic use of opiate for therapeutic purpose Pain medication agreement Encounter for long-term (current) use of other medications Screen for colon cancer Special screening for malignant neoplasms, colon documented in this encounter Eye Exam Visual Acuity (Snellen - Linear) Right eye Left eye Dist cc 20/25 20/30-1 Dist ph cc NI 20/25 Correction: Glasses Tonometry (Applanation, 9:09, PA) Right eye Left eye Pressure 15 14 Pupils Dark React APD Right eye 7 Minimal None Left eye 7 Minimal None Neuro/Psych Oriented x3: Yes Mood/Affect: Normal Slit Lamp Exam Right eye Left eye Lids/Lashes no MGS. Upper palpeb ral lesion improved. Few dilated vessels. no MGS. Conjunctiva/Sclera + stain 1+ stain. Cornea no stain, BUT 3 No stain, BUT6-7 Anterior Chamber Deep and quiet Deep and quiet Iris Round and reactive Round and hitesh ctive Care Teams Photography And Prints Curator Relationship Specialty Start Date End Date Jean Munoz MD [address] [place] [phone] PCP - General 12/31/08 Manny Rizzo MD [address] [place] [phone] 04/20/10 documented as of this encounter
--- OUTSIDE RECORDS SUMMARY | 2024-06-10 07:27 | XMS_ITS | Encounter Summary ---
Author Organization [facility] Address [address] [place] [address] Care Team Providers Care Quickbooks Bookkeeper Name Role Phone Jean Munoz MD Primary Care Provider Manny Rizzo MD Unavailable Reason for Visit * Reason Comments Eye Pain itching, running, pa in in both eyes Encounter Details Date Type Department Care Team (Latest Contact Info) Description 10/10/2013 11:30 EST Office Visit [facility][note 3] [address] [place], [place] [phone] Marie Natarajan PA Conjunctivitis of both eyes (Primary Dx) Discharge Disposition: Auto Discharge Social [...] Sign Reading Time Taken Comments Blood Pressure 114/72 10/10/2013 1142 EST Pulse 72 10/10/2013 1142 EST Temperature 37.2 ??C (99 ??F) 10/10/2013 1142 EST Respiratory Rate 20 10/10/2013 1142 EST Oxygen Saturation - - Inhaled Oxygen Concentration - - Weight 91.9 kg (202 lb 9.6 oz) 10/10/[address] Height 162.6 cm (5' 4) 10/10/2013 1142 EST Body Mass Index 34.78 10/10/2013 1142 EST documented in this encounter Functional Status Cognitive Status Response Date of Assessm ent Because of a physical, menta l, or emotional condition, do you have serious difficulty concentrating, remembering, or making decisions? (5 years old or older) Yes 02/26/2013 documented as of this encounter Discharge Diagnoses Diagnosis 372.30 CONJUNCTIVITIS NOS[ICD-9-CM] documented in this encounter Ordered Prescriptions Prescription Sig Dispensed Refills Start Date End Da te tobramycin (TOBREX) 0.3 % ophthalmic solutionIndications:Conjun ctivitis of both eyes Place 1-2 Drops into both eyes 4 times daily. 5 mL 0 10/10/2013 10/17/2013 documented in this encounter Discharge Disposition Disposition Code Departure Means Destination Auto Discharge documented in this encounter Progress Notes * Marie Natarajan PA - 10/10/2013 1459 EST Subjective: Patient ID: Liset Viera is an 52 y.o. female. Chief Complaint Patient presents with ??? Eye Pain itching, running, pain in both eyes HPI Pt presents today with above concern. PCP is . EYE PROBLEM: 4 day hx of irritation to both eyes. Describes gritty feeling, itchiness, clear drainage, and at times gooey drainage. Crusting in the am. Started with URI about same time and was aroundsick grandchildren before. Denies visual change, photophobia, nausea, and pain to the eyeball. She has hx of environmental allergies controlled with antihistamine and nasal steroid. She usually does not experience eye symptoms with her allergies. She wears glasses. She has hx of eye problems (blepharitis, tear film insufficiency, diplopia, and others-see problem list) and is followed by [facility] ophthalmology. Last appointment 10/2012 and notes she is seen yearly. She did not call their office for above symptoms. She denies any recent changes to her multiple medications. Uses Restasis and artificial tears. Patient Active Problem List Diagnosis ??? Severe [...] Anxiety ??? Fatty liver ??? Chronic pain ??? Arthritis ??? Cervical spondylosis ??? Vitreous [...] pain, unspecified site ??? Pain medication agreement Past Medical History Diagnosis Date ??? UTI [...] daily as needed. 180 Tab 0 ??? cyclosporine (RESTASIS) 0.05 % ophthalmic emulsion Place 1 Drop into both eyes 4 times daily. 2Tray 11 ??? docusate sodium [...] 2 times daily. 3 Inhaler 0 ??? [START ON 11/16/2013] HYDROcodone-acetaminophen (LORTAB) 5-500 mg tablet Take 1 Tab by mouth every 6 hours as needed for Pain for 28 days. 112 Tab 0 ??? [START ON 10/19/2013] HYDROcodone-acetaminophen (LORTAB) 5-500 mg tablet Take 1 [...] levalbuterol (XOPENEX HFA) 45 mcg/actuation inhaler Inhale 1-2 Puffs as directed every 4 hours as needed for Wheezing. 3 Inhaler 2 ??? methylphenidate (RITALIN;METHYLIN) 10 mg tablet [...] Tab by mouth once as needed for Migraine for 1 dose. 9 Each 2 ??? tamsulosin (FLOMAX) 0.4 mg capsule [...] Used ??? Alcohol Use: No Comment: rarely Review of Systems Constitutional: Negative. HENT: Positive for congestion and sore throat. Negative for ear pain. Eyes: Positive for discharge and redness. Negative for double vision and photophobia. Respiratory: Positive for cough. Gastrointestinal: Negative for nausea and vomiting. Skin: Negative. Endo/Heme/Allergies: Positive for environmental allergies. - See HPI Objective: BP 114/72 Pulse 72 Temp(Src) 37.2 ??C (99 ??F) (Tympanic) Resp 20 Ht 162.6 cm (64) Wt 91.899 kg (202 lb 9.6 oz) BMI 34.76 kg/m2 LMP 01/11/1987 Physical Exam Vitals reviewed. Constitutional: She appears well-developed and well-nourished. HENT: Head: Normocephalic and atraumatic. Mouth/Throat: Oropharynx is clear and moist. Eyes: EOM are normal. Pupils are equal, round, and reactive to light. No scleral icterus. Both conjunctiva injected. Sclera with redness at lower borders. No tenderness with pressure over eye globe. Lymphadenopathy: She has no cervical adenopathy. Neurological: She is alert. Skin: Skin is warm and dry. Visual acuity with corrective lenses: Right 20/30, left 20/30, both 20/20. Assessment: Bilateral conjunctivitis. Suspect viral with concomitant URI but will treat with antibiotics to cover possible bacterial infection. Low threshold for ophthalmology evaluation if not improving given pt's hx of previous eye problems. Plan: Liset was seen today for eye pain. Diagnoses and associated orders for this visit: Conjunctivitis of both eyes - Visual acuity screening - tobramycin (TOBREX) 0.3 % ophthalmic solution; Place 1-2 Drops into both eyes 4 times daily. If not improving in 48 hours, or worsening symptoms, or visual change she will contact her audio visual facilities engineer's office immediately. Return if symptoms worsen or fail to improve. * Teetee Marshall LPN - 10/10/2013 1206 EST Visual acuity performed as ordered by Marie GANDHI. See flow sheets for specifics. documented in this encounter Plan of Treatment Upcoming Encounters Date Type Department Care Team (Late st Contact Info) Description 06/29/2024 14:15 EDT Office Visit [facility][note 3] [address] [place], [place] [phone] Jean Munoz MD [address] [place] [phone] documented as of this encounter Visit Diagnoses Diagnosis Conjunctivitis of both eyes- Primary Conjunctivitis, unspecified Screening for osteoporosis- Primary Special screening for osteoporosis Primary narcolepsy without cataplexy Chronic pain syndrome Chronic low back pain Lumbago Chronic use of opiate for therapeutic purpose Pain medication agreement Encounter for long-term (current) use of other medications Screen for colon cancer Special screening for malignant neoplasms, colon documented in this encounter Orders Nursing Count Last Ordered Date First Orde red Date VISUAL ACUITY SCREENING 1 10/10/2013 documented in this encounter Care Teams Quickbooks Bookkeeper Relationship Specialty Start Date End Date Jean Munoz MD [address] [place] [phone] PCP - General 12/31/08 Manny Rizzo MD [address] [place] [phone] 04/20/10 documented as of this encounter
--- OUTSIDE RECORDS SUMMARY | 2024-06-10 07:27 | XMS_ITS | Encounter Summary ---
Author Organization [facility] Address [address] [place] [address] Care Team Providers Care Solvent Process Extractor Operator Name Role Phone Jean Munoz MD Primary Care Provider Manny Rizzo MD Unavailable Encounter Details Date Type Department Care Team (Late st Contact Info) Description 08/14/2013 Orders Only [facility] Pulmonology & Critical Care - [facility] [address] [place], [place] [phone] Jeanette Virk MD [address] [facility], [address] [place] [address] Chronic airway obstruction, not elsewhere classified (Primary Dx) Social History Tobacco Use Types [...] EDT Office Visit [facility] [address] [place] [address] Jean Munoz MD [address] [place] [address] documented as of this encounter Visit Diagnoses Diagnosis Chronic airway obstruction, not elsewhere classified- Primary Screening for osteoporosis- Primary Special screening for osteoporosis Primary narcolepsy without cataplexy Chronic pain syndrome Chronic low back pain Lumbago Chronic use of opiate for therapeutic purpose Pain medication agreement Encounter for long-term (current) use of other medications Screen for colon cancer Special screening for malignant neoplasms, colon documented in this encounter Care Teams Solvent Process Extractor Operator Relationship Specialty Start Date End Date Jean Munoz MD [address] [place] [address] PCP - General 12/31/08 Manny Rizzo MD [address] [place] [address] 04/20/10 documented as of this encounter
--- OUTSIDE RECORDS SUMMARY | 2024-06-10 07:27 | XMS_ITS | Encounter Summary ---
Author Organization [facility] Address [address] [place] [address] Care Team Providers Care Catering Operations Manager Name Role Phone Jean Munoz MD Primary Care Provider Manny Rizzo MD Unavailable Reason for Visit * Reason Onset Date Comments Medication Questions 08/14/2013 Encounter Details Date Type Department Care Team (Late st Contact Info) Description 08/14/2013 Telephone [facility] - [facility] [address] [place], [place] [phone] Alban Powers MD [address] [place] [address] Medication Questions Social History Tobacco Use Types [...] te tamsulosin (FLOMAX) 0.4 mg capsule Take one capsule by mouth every day (take it half an hour after supper) 90 Cap 1 08/14/2013 04/28/2015 documented in this encounter Miscellaneous Notes * Telephone Encounter - Sahra Castro, RN - 08/14/2013 1245 EST TC to pharmacist, insurance company requests 90 day supply order for Flomax, orders given for 90 day supply with 1 refill, since Dr. Powers had previously given 6 month supply * Telephone Encounter - Jania Talbert - 08/14/2013 1232 EST [facility] pt's insurance is requesting pt have 90 day supply. Please call. documented in this encounter Plan of Treatment Upcoming Encounters Date Type Department Care Team (Late st Contact Info) Description 06/29/2024 14:15 EDT Office Visit [facility] [address] [place] [address] Jean Munoz MD [address] [place] [phone] documented as of this encounter Visit Diagnoses Not on filedocumented in this encounter Discontinued Medications Medication Sig Discontinue Reason Start Date End Da te tamsulosin (FLOMAX) 0.4 mg capsule Take one capsule by mouth every day (take it half an hour after supper) Reorder 06/14/2013 08/14/2013 documented as of this encounter Care Teams Catering Operations Manager Relationship Specialty Start Date End Date Jean Munoz MD [address] [place] [phone] PCP - General 12/31/08 Manny Rizzo MD [address] [place] [phone] 04/20/10 documented as of this encounter
--- OUTSIDE RECORDS SUMMARY | 2024-06-10 07:27 | XMS_ITS | Encounter Summary ---
Author Organization [facility] Address [address] [place] [address] Care Team Providers Care Manager Pediatric Name Role Phone Jean Munoz MD Primary Care Provider Manny Rizzo MD Unavailable Reason for Visit * Reason Onset Date Comments Prior Auth, Medication 06/27/2013 Encounter Details Date Type Department Care Team (Late st Contact Info) Description 06/27/2013 Telephone [facility] Pulmonology & Critical Care - [address] [address] Jeanette Virk MD [address] [place] [address], [address] [place] [address] Prior Auth, Medication Social History Tobacco Use [...] encounter Miscellaneous Notes * Telephone Encounter - Laurel Dias RT - 06/27/2013 1534 EDT Called pt and pharmacist to inform them Daliresp was approved for 1 year until 06/26/2014. Laurel DiasAUTOMATIC PINSETTER MECHANIC * Telephone Encounter - Esha Hancock - 06/27/2013 1512 EDT Daliresp has been approved through 06.26.2014. documented in this encounter Plan of Treatment Upcoming Encounters Date Type Department Care Team (Late st Contact Info) Description 06/29/2024 14:15 EDT Office Visit [facility] Medicine [facility] [address] [place] [address] Jean Munoz MD [address] [place] [phone] documented as of this encounter Visit Diagnoses Not on filedocumented in this encounter Care Teams Manager Pediatric Relationship Specialty Start Date End Date Jean Munoz MD [address] [place] [phone] PCP - General 12/31/08 Manny Rizzo MD [address] [place] [phone] 04/20/10 documented as of this encounter
--- OUTSIDE RECORDS SUMMARY | 2024-06-10 07:27 | XMS_ITS | Encounter Summary ---
Author Organization [facility] Address [address] [place] [address] Care Team Providers Care Vamp Liner Name Role Phone Jean Munoz MD Primary Care Provider Manny Rizzo MD Unavailable Reason for Visit * Reason Comments Chronic Obstructive Pulmonary Disease Encounter Details Date Type Department Care Team (Late st Contact Info) Description 08/25/2013 11:15 EST Office Visit [facility] Pulmonology & Critical Care - [address] [phone] Jeanette Virk MD [address] [place] [address], [address] [place] [address] COPD (chronic obstructive pulmonary disease) ([facility]) ([facility]) (Primary Dx); Asthma; Shortness of breath Social [...] Sign Reading Time Taken Comments Blood Pressure 114/68 08/25/2013 1123 EST Pulse 79 08/25/2013 1123 EST Temperature 36.6 ??C (97.8 ??F) 08/25/2013 1123 EST Respiratory Rate 20 08/25/2013 1123 EST Oxygen Saturation 97% 08/25/2013 1123 EST Inhaled Oxygen Concentration - - Weight 93 kg (205 lb) 08/25/2013 1123 EST Height 162.6 cm (5' 4.02) 08/25/2013 1123 EST Body Mass Index 35.17 08/25/2013 1123 EST documented in this encounter Functional Status Cognitive Status Response Date of Assessm ent Because of a physical, menta l, or emotional condition, do you have serious difficulty concentrating, remembering, or making decisions? (5 years old or older) Yes 02/26/2013 documented as of this encounter Discharge Diagnoses Diagnosis 496. CHRONIC AIRWAY OBSTRUCTION NEC[ICD-9-CM] documented in this encounter Patient Instructions * Patient Instructions* Jeanette Virk MD - 08/25/2013 11:48 EST 1. I will follow up with you once I get the result of the overnight oximetry 2. Keep taking the Daliresp, this seems to be working well for you 3. Keep trying to avoid smoke exposure as much as possible 4. Follow up in 6 months, but call before if problems Jeanette Virk MD documented in this encounter Progress Notes * Jailene Martinez - 08/25/2013 1136 EST Testing was performed and recorded in [facility]. See complete report in scanned documents. * Jeanette Virk MD - 08/25/2013 1126 EST DIVISION OF PULMONOLOGY? PROGRESS/FOLLOWUP NOTE -08/25/2013 ?? Jean Munoz MD [address] [place] [phone] REASON FOR VISIT: Encounter Diagnoses Name Primary? COPD (chronic obstructive pulmonary disease) Yes ??? Asthma ??? Shortness of breath INTERVAL HISTORY: Liset Viera was seen in pulmonary clinic today for evaluation of the above medical problems. They were last seen in the pulmonary clinic on 09/21/12, at which time she had been having frequent exacerbations, and we added Daliresp to her regimen. In the interval since the last visit, we had planned to get overnight oximetry, to see if we could requalify her for supplemental oxygen, but this has not been done yet. She reports that they just contacted her yesterday to finally get this set up. Overall, she does report that she feels much better after starting roflumilast. She has not had another exacerbation since she started it. She also feels like she is able to bring up more sputum, andkeeps her keep her lungs clearer and she is using her albuterol about half as much as she did before, usually just a few times a week. She does still get short of breath with exertion, such as working around the home were going grocery shopping. She has done some spot pulse ox checks, and has notednumbers as low as 85%. As previously noted, she does not have oxygen at home right now, she did notqualify what testing. A 12 point review of systems was obtained and was negative except as noted above. The past medical, social and family history were reviewed and updated in the chart. Medications: has a current medication list which includes the following prescription(s): baclofen, cyclosporine, docusate sodium, doxycycline, fexofenadine, fluticasone-salmeterol, hydrocodone-acetaminophen, hydrocodone- acetaminophen, hydrocodone-acetaminophen, hydrocodone-acetaminophen, hydroxyprop yl methylcellulose, ipratropium-albuterol, levalbuterol, methylphenidate, methylphenidate, mometasone, montelukast, nortriptyline, omeprazole, ondansetron, pregabalin, roflumilast, ropinirole, sertraline, sumatriptan, tamsulosin, tiotropium, and zolpidem. Objective:?? PHYSICAL EXAMINATION: A well-nourished femalein no respiratory distress. Vital signs: BP 114/68 Pulse 79 Temp(Src) 36.6 ??C (97.8 ??F) (Tympanic) Resp 20 Ht 162.6 cm (64.02) Wt 92.987 kg (205 lb) BMI 35.17 kg/m2 SpO2 97% LMP 01/11/1987 HEENT exam: [...] exam: Obese, soft, non-tender. Extremities exam: No clubbing. Neuro: Alert and oriented x 4 , normal mood and affect, moves all extremities well. Data:?? Pulmonary function studies: Pulmonary function studies, ordered and reviewed by me, show: FVC of 2.23 liters, 64% of predicted FEV1 of 1.69 liters, 62 % of predicted FEV1/FVC ratio 96% This is consistent with restriction or weakness or poor effort. Overall FVC and FEV1 are significantly increased from previous testing 2 months ago. Imaging: None recent Impression and Plan:?? 52 year old woman with a history of tobacco dependence, with significant ongoing tobacco exposure if not active smoking (she does deny this), with a history of asthma and COPD,with frequent exacerbations. She returns today with significant interval improvement after the institution of roflumilast. Symptoms are improved, as is her lung function. I have encouraged her to continue this medication, along with her other chronic pulmonary medications. I will followup once I see the results of her overnight oximetry. As long as she continues to do swell, plan to see her back in 6 months but she knows to contact me in the interim with any questions or concerns. We will plan to see the patient back in 6 months and have encouraged them to call us sooner if any issues arise. ?? Jeanette Virk MD Pulmonary Attending ? cc: ?Jean Munoz MD Please note: this documentation was created with the use of voice recognition software, and may contain rare farmworker vegetable errors. documented in this encounter Plan of Treatment Upcoming Encounters Date Type Department Care Team (Late st Contact Info) Description 06/29/2024 14:15 EDT Office Visit [facility] [address] [place] [address] Jean Munoz MD [address] [place] [phone] documented as of this encounter Procedures Procedure Name Priority Date/Time Associated Diagnosis Comments PULMONARY FUNCTION REPORT - SCANNED 08/30/2013 11:11 EST documented in this encounter Results * PULMONARY FUNCTION REPORT - SCANNED (08/30/2013 11:11 EST) 08/30/2013 11:1 1 EST Scan 2 End User Consultant PROCEDURE/MINOR GURU GICAL ORDERABLES documented in this encounter Visit Diagnoses Diagnosis COPD (chronic obstructive pulmonary disease) ([facility])- Primary Chronic airway obstruction, not elsewhere classified [...] colon documented in this encounter Care Teams Vamp Liner Relationship Specialty Start Date End Date Jean Munoz MD [address] [place] [phone] PCP - General 12/31/08 Manny Rizzo MD [address] [place] [address] 04/20/10 documented as of this encounter
--- OUTSIDE RECORDS SUMMARY | 2024-06-10 07:27 | XMS_ITS | Encounter Summary ---
Author Organization [facility] Address [address] [place] [address] Care Team Providers Care Social Worker Palliative Care Name Role Phone Jean Munoz MD Primary Care Provider Manny Rizzo MD Unavailable Encounter Details Date Type Department Care Team (Late st Contact Info) Description 10/10/2013 Community Health Team [facility] [address] [facility], [address] [place], [place] [phone] Odilia Milan, RD [address] [place] [address] Social History Tobacco Use Types [...] of this encounter Progress Notes * Odilia Milan, RD - 10/10/2013 1305 EST Nutrition Consult completed 10/10/13 Initial Assessment Liset was seen today for IBS. Pt is looking forward to trying the FODMAP's diet to minimize symptomsfrom IBS. Pt states that there has been nothing in the past that has worked for her. Has never beenable to identify a single food or food group that is causing the symptoms that she is experiencing.Pt states that symptoms include constipation 2x/wk and diarrhea 5x/wk. Pt reports daily physical activity including walking outdoors for 15-20 minutes. Pertinent labs and medical history reviewed. Provided pt with information on the FODMAPs diet. Collaborated with pt to create a modified approach to the FODMAP's diet Pt interested in reducing intakeof foods that are high in FODMAPs slowly. Will focus first on lactose containing food for 6 weeks. After the 6-weeks re- introduce dairy for 2 weeks and then eliminate gluten and some grains. Provided pt with alternative means of getting probiotics without yogurt. Suggested soy based yogurt with live cultures or supplemental probiotics. Screenings: PHQ-9 18 [id number] 18 Alcohol 1 Goals: 1. Decrease intake of high fodmap foods using list as guide. 2. Probiotics 3. Maintain regular physical activity and increase as able. My Action Plan Goal: Something I WANT to do Improve symptoms of IBS Action: A specific activity that you are going to do in the next 1 to 2 weeks. What you will do (the behavior): Begin modified fodmaps How much you will do (time, distance, or amount of activity): Start with elimination of lactose andother high fodmap foods with exception of gluten When you will do it (time of day): All day How often you will do it (# days per week): 6-weeks How important is it to you that you complete the action you identified above? Not important = 1 Totally important = 10 Importance to me: 10 How confident are you that you will be successful in completing the action you identified above? Not confident = 1 Totally confident = 10 My confidence: 8 Things that might make it hard: Regular consumption of pepsi Ways I might overcome these problems: Low fodmap teas My healthcare provider suggested I attend: I will attend: [] Healthier Living Workshop [] [] Diabetes Prevention program [] [] Tobacco Cessation [] [] Other: [] I will track:: Blood Sugar [] Blood Pressure [] How Much I Smoke [] What I Eat [] Other: [] Follow-up plan (phone or e-mail and date/time): F/u in 6 weeks to discuss reintroduction on trial phase of no gluten Time spent with pt: 60 min utes Referrals: n/a Follow-up: 11/21/13 @ [facility] @ 9am CHT Status: Active with CHT RD Odilia Milan RD, CD Clinical Dietitian, CHT documented in this encounter Plan of Treatment Upcoming Encounters Date Type Department Care Team (Late st Contact Info) Description 06/29/2024 14:15 EDT Office Visit [facility] [address] [place] [address] Jean Munoz MD [address] [place] [phone] documented as of this encounter Visit Diagnoses Not on filedocumented in this encounter Care Teams Social Worker Palliative Care Relationship Specialty Start Date End Date Jean Munoz MD [address] [place] [address] PCP - General 12/31/08 Manny Rizzo MD [address] [place] [address] 04/20/10 documented as of this encounter
--- OUTSIDE RECORDS SUMMARY | 2024-06-10 07:27 | XMS_ITS | Encounter Summary ---
Author Organization [facility] Address [address] [place] [address] Care Team Providers Care Erp Developer Name Role Phone Jean Munoz MD Primary Care Provider Manny Rizzo MD Unavailable Reason for Visit * Reason Onset Date Comments Medications Refill 11/20/2013 Encounter Details Date Type Department Care Team (Late st Contact Info) Description 11/20/2013 Telephone [facility] Sleep Program - [address] [id number] Tiana Bacon [address] [place] [phone] Medications Refill Social History Tobacco Use [...] by mouth daily. Earliest Fill Date: 11/21/13 60 Tab 0 11/21/2013 12/18/2013 methylphenidate (RITALIN;METHYLIN) 10 mg tablet Take one tab in the afternoon for narcolepsy. 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 * Telephone Encounter - Duy Booth - 11/20/2013 1147 EDT Calling to request refills of Ritalin to be picked up tomorrow. documented in this encounter Plan of Treatment Upcoming Encounters Date Type Department Care Team (Late st Contact Info) Description 06/29/2024 14:15 EDT Office Visit [facility] [address] [place] [address] Jean Munoz MD [address] [place] [phone] documented as of this encounter Visit Diagnoses Not on filedocumented in this encounter Discontinued Medications Medication Sig Discontinue Reason Start Date End Da te methylphenidate (RITALIN;METHYLIN) 10 mg tablet Take one tab in the afternoon for narcolepsy. Earliest Fill Date: 10/24/13 Reorder 10/24/2013 11/20/2013 methylphenidate (RITALIN;METHYLIN) 20 mg tablet Take 2 Tabs by mouth daily. Earliest Fill Date: 10/24/13 Reorder 10/24/2013 11/20/2013 documented as of this encounter Care Teams Erp Developer Relationship Specialty Start Date End Date Jean Munoz MD [address] [place] [phone] PCP - General 12/31/08 Manny Rizzo MD [address] [place] [phone] 04/20/10 documented as of this encounter
--- OUTSIDE RECORDS SUMMARY | 2024-06-10 07:27 | XMS_ITS | Encounter Summary ---
Author Organization [facility] Address [address] [place] [address] Care Team Providers Care Insole Doubler Name Role Phone Jean Munoz MD Primary Care Provider Manny Rizzo MD Unavailable Reason for Visit * Reason Onset Date Comments Prior Auth, Medication 10/25/2013 RESTASIS OP Encounter Details Date Type Department Care Team (Late st Contact Info) Description 10/25/2013 Telephone [facility] Ophthalmology - [address] [phone] Giovanni Rodriguez MD [address] [facility], [address] [place] [address] Prior Auth, Medication (RESTASIS OP) Social History Tobacco Use Types Packs/Day Years [...] encounter Miscellaneous Notes * Telephone Encounter - Juliette Valdez RN - 10/25/2013 0835 EST Per pt's chart she has a hx of using ATs hourly and celluvisc/lacrilube as well as taking flax seedoil and restasis due to her JASMINA. Has hx of punctal plugs, but no current punctal plugs in place (sono contraindication there). 0840: I called [place] Medicaid and spoke with Cheryl. PA approved X1 year. * Telephone Encounter - Jaycee Bennett - 10/25/2013 075 EST [place] MEDICAID [id number] documented in this encounter Plan of Treatment Upcoming Encounters Date Type Department Care Team (Late st Contact Info) Description 06/29/2024 14:15 EDT Office Visit [facility] Medicine [facility] [address] [place], [place] [phone] Jean Munoz MD [address] [place] [phone] documented as of this encounter Visit Diagnoses Not on filedocumented in this encounter Care Teams Insole Doubler Relationship Specialty Start Date End Date Jean Munoz MD [address] [place] [phone] PCP - General 12/31/08 Manny Rizzo MD [address] [place] [phone] 04/20/10 documented as of this encounter
--- OUTSIDE RECORDS SUMMARY | 2024-06-10 07:27 | XMS_ITS | Encounter Summary ---
Author Organization [facility] Address [address] [place] [address] Care Team Providers Care Hat Renovator Name Role Phone Jean Munoz MD Primary Care Provider Manny Rizzo MD Unavailable Reason for Visit * Reason Comments [facility] Team Encounter Details Date Type Department Care Team (Late st Contact Info) Description 12/11/2013 Community [facility] Team [address], [address] [place], [place] [phone] Odilia Milan, RD [address] [place] [address] Social History Tobacco Use Types [...] as of this encounter Progress Notes * Caro Patel - 12/11/2013 0956 EDT ..Patient called the [facility] Care Team to reschedule appointment with Odilia Milan RD from 12/12 to at 11:00 at [facility]. documented in this encounter Plan of Treatment Upcoming Encounters Date Type Department Care Team (Late st Contact Info) Description 06/29/2024 14:15 EDT Office Visit [facility] [address] [place] [address] Jean Munoz MD [address] [place] [phone] documented as of this encounter Visit Diagnoses Not on filedocumented in this encounter Care Teams Hat Renovator Relationship Specialty Start Date End Date Jean Munoz MD [address] [place] [phone] PCP - General 12/31/08 Manny Rizzo MD [address] [place] [phone] 04/20/10 documented as of this encounter
--- OUTSIDE RECORDS SUMMARY | 2024-06-10 07:27 | XMS_ITS | Encounter Summary ---
Author Organization [facility] Address [address] [place] [address] Care Team Providers Care Small Business Consultant Name Role Phone Jean Munoz MD Primary Care Provider Manny Rizzo MD Unavailable Reason for Visit * Reason Comments Abdominal Pain LUQ, unknown etiolog y * Consult (Routine/Next Available) - Specialty Report Received Specialty Diagnoses / Procedures Referred By Alex weldon Referred To Contact General Surgery Diagnoses LUQ pain Jean Munoz MD [address] [place] [phone] Referral ID Status Reason Start Date Expiration Date Visits Requested Visits Authorized [id number] Specialty Report Received Specialty Services Required 3 1 1 Encounter Details Date Type Department Care Team (Late st Contact Info) Description 07/24/2013 13:00 EST Office Visit [facility] General Surgery - [facility] [address] [place], [place] [phone] Koby Flynn MD [address] [facility], [address] [place] [phone] Abdominal pain, unspecified site (Primary Dx) Discharge Disposition: Auto Discharge Social [...] Sign Reading Time Taken Comments Blood Pressure 106/74 07/24/2013 1305 EST Pulse 103 07/24/2013 1305 EST Temperature - - Respiratory Rate - - Oxygen Saturation 95% 07/24/2013 1305 EST Inhaled Oxygen Concentration - - Weight 89.8 kg (198 lb) 07/24/2013 1305 EST Height 161.9 cm (5' 3.75) 07/24/2013 1305 EST Body Mass Index 34.25 07/24/2013 1305 EST documented in this encounter Functional Status Cognitive Status Response Date of Assessm ent Because of a physical, menta l, or emotional condition, do you have serious difficulty concentrating, remembering, or making decisions? (5 years old or older) Yes 02/26/2013 documented as of this encounter Discharge Diagnoses Diagnosis 789.00 ABDOMINAL PAIN UNSPEC SITE[ICD-9-CM] documented in this encounter Discharge Disposition Disposition Code Departure Means Destination Auto Discharge documented in this encounter Progress Notes * Koby Flynn MD - 07/24/2013 1620 EST Division of General Surgery Date of Service: 07/24/2013 PROBLEM: 1. Abdominal pain, unspecified site HISTORY OF PRESENT ILLNESS: I am seeing Liset Viera in the office today in consultation by Jean Munoz MD for 1. Abdominal pain, unspecified site This is a 52-year-old woman who had a laparoscopic Aspen fundoplication with me approximately 6 years ago. She states that she has pain in the left upper quadrant. It actually was even present priorto surgery 6 years ago. She states that it has been about 10 years. She describes a tenderness. Shealso described it as like a baby is kicking her from the inside. She has some tenderness in that region as well. Approximately 3 to 4 days in succession per month, the patient develops abdominal pain and vomiting as well as diarrhea. Actually, she does not have emesis but just forceful retching due to the intact nature of her fundoplication. She has no reflux symptoms and is pleased from that standpoint. She comes today to discuss the etiology of this pain she is experiencing and whether or not it is related to her previous surgery. Past Medical History Diagnosis Date ??? UTI [...] Ankle fracture surgery 04/01/[address] [facility] ??? Cyst incision and drainage 09/17/10 [...] tobacco: Never Used ??? Alcohol Use: No rarely ??? Drug Use: No no longer using. ??? Sexually Active: Yes -- Male partner(s) Other Topics Concern ??? None Social History Narrative from [place] (ETOH) Son Alexi and Daughter Yadira Currently living alone in [facility] Current Outpatient Prescriptions Medication Status Sig Dispense Refill ??? baclofen (LIORESAL) 10 mg tablet Active Take 1 Tab by mouth 3 times daily as needed. 180 Tab 0 ??? cyclosporine (RESTASIS) 0.05 % ophthalmic emulsion Active Place 1 Drop into both eyes 4 times daily. 2 Tray 11 ??? docusate sodium (COLACE) 100 mg capsule Active Take 1 Cap by mouth 2 times daily as needed for Constipation. ??? doxycycline (VIBRA-TABS) 100 mg tablet Active Take 1 Tab by mouth daily. 90 Tab 2 ??? fexofenadine (JUDITH) 180 mg tablet Active Take 1 Tab by mouth daily. 60 Each 0 ??? fluticasone-salmeterol (ADVAIR HFA) 230-21 mcg/actuation inhaler Active Inhale 2 Puffs as directed 2 times daily. 2 Inhaler 0 ??? HYDROcodone-acetaminophen (LORTAB) 5-500 mg tablet Active Take 1 Tab by mouth every 6 hours as needed for Pain for 28 days. 112 Tab 0 ??? HYDROcodone-acetaminophen (LORTAB) 5-500 mg tablet Active Take 1 Tab by mouth every 6 hours as needed for Pain for 28 days. 112 Tab 0 ??? HYDROcodone-acetaminophen (LORTAB) 5-500 mg tablet Active Take 1 Tab by mouth every 6 hours as needed for Pain for 28 days. 112 Tab 0 ??? Hydrocodone-Acetaminophen 5-500 mg capsule Active Take by mouth every 6 hours as needed. ??? hydroxypropyl methylcellulose (ISOPTO TEARS) 0.5 % ophthalmic solution Active Place 1 Drop intoboth eyes 5 times daily. ??? ipratropium-albuterol (DUONEB) 0.5 mg-3 mg(2.5 mg base)/3 mL nebulizer solution Active Take 3 mL by nebulization every 6 hours as needed for Wheezing. 2 Box 0 ??? levalbuterol (XOPENEX HFA) 45 mcg/actuation inhaler Active Inhale 1-2 Puffs as directed every 4hours as needed for Wheezing. 3 Inhaler 2 ??? methylphenidate (RITALIN;METHYLIN) 10 mg tablet Active Take one tab in the afternoon for narcolepsy 30 Tab 0 ??? methylphenidate (RITALIN;METHYLIN) 20 mg tablet Active Take 2 Tabs by mouth daily. 60 Tab 0 ??? mometasone (NASONEX) 50 mcg/actuation nasal spray Active 2 Sprays by nasal route daily. 2 Inhaler 0 ??? montelukast (SINGULAIR) 10 mg tablet Active Take 1 Tab by mouth daily. 90 Each 2 ??? nortriptyline (PAMELOR) 75 mg capsule Active Take 1 Cap by mouth daily. 60 Each 0 ??? omeprazole (PRILOSEC) 40 mg capsule Active Take 1 Cap by mouth daily. 180 Cap 2 ??? ondansetron (ZOFRAN) 4 mg tablet Active Take 1 Tab by mouth daily as needed for Nausea. 60 Tab 0 ??? pregabalin (LYRICA) 150 mg capsule Active Take 1 Cap by mouth 3 times daily. 270 Each 1 ??? roflumilast (DALIRESP) 500 mcg tablet Active Take 1 Tab by mouth daily. 30 Tab 5 ??? rOPINIRole (REQUIP) 2 mg tablet Active TAKE ONE TABLET BY MOUTH AT BEDTIME 90 Tab 2 ??? sertraline (ZOLOFT) 100 mg tablet Active Take 2 Tabs by mouth daily. 180 Tab 2 ??? sumatriptan (IMITREX) 50 mg tablet Active Take 1 Tab by mouth once as needed for Migraine for 1dose. 9 Each 2 ??? tamsulosin (FLOMAX) 0.4 mg capsule Active Take one capsule by mouth every day (take it half an hour after supper) 30 Cap 5 ??? tiotropium (SPIRIVA WITH HANDIHALER) 18 mcg inhalation capsule Active Inhale 1 Cap as directed daily. 90 Cap 2 ??? zolpidem (AMBIEN) 5 mg tablet Active Take 1 Tab by mouth at bedtime as needed for Sleep. 30 Each 2 No current facility-administered medications for this visit. Allergies Allergen Reactions ??? Toradol (Ketorolac Tromethamine) Hives ??? Motrin (Ibuprofen) Itching REVIEW OF SYSTEMS: A ten point review of systems was performed and all were negative except as listed below. Patient Active Problem List Diagnosis ??? Severe [...] pain ??? Hesitancy ??? Dizziness ??? Wears glasses ??? Numbness ??? Chronic fatigue ??? LUQ pain ??? Pneumonia ??? COPD (chronic obstructive pulmonary disease) ??? Abdominal pain, unspecified site OBJECTIVE: Filed Vitals: 07/24/13 1305 BP: 106/74 Pulse: 103 Height: 161.9 cm (63.75) Weight: 89.812 kg (198 lb) SpO2: 95% Body mass index is 34.26 kg/(m^2). She is afebrile. General: No acute distress. HEENT: Normal. Neck: Supple. Skin: Normal. Lungs: Clear, bilaterally. Heart: Regular rate and rhythm. Abdomen: Soft, nondistended , no masses, no organomegaly. .Tender just lateral to her 11 mm incision scar in the left upper quadrant on the 11th rib, no actual hernia in that location. The rest of her abdomen is nontender and soft. Vascular: Normal. Musculoskeletal: Normal. Neurologic: Normal. ASSESSMENT & PLAN: A 52-year-old woman with a history of a previous Aspen fundoplication has recurrent vomiting episodes, but thought she felt a bulge in her abdomen in the left upper quadrant, although I could not demonstrate a hernia today on exam. She did have some tenderness in that region, but, again, I could not feel a hernia. I thought she would benefit from a local injection of anesthetic and steroids. If she has recurrent vomiting episodes, we may need to work that up with a gastric emptying scan to seeif she has delayed gastric emptying after surgery. I recommended using a fiber supplement. PROCEDURE NOTE: After prepping the skin on the left upper quadrant and marking the area on the 11thrib where she was tender, we infiltrated with a combination of 6 mL of 1% lidocaine and 4 mL of Kenalog 10 into the 11th rib. She had numbness after the procedure and no pain or tenderness. I was pleased with that result. There was no complication. Primary Care Provider: Jean Munoz MD Referring Provider: Jean Munoz MD . documented in this encounter Plan of Treatment Upcoming Encounters Date Type Department Care Team (Late st Contact Info) Description 06/29/2024 14:15 EDT Office Visit [facility] [address] [place], [place] [phone] Jean Munoz MD [address] [place] [phone] documented as of this encounter Visit Diagnoses Diagnosis Abdominal pain, unspecified site- Primary Screening for osteoporosis- Primary Special screening for osteoporosis Primary narcolepsy without cataplexy Chronic pain syndrome Chronic low back pain Lumbago Chronic use of opiate for therapeutic purpose Pain medication agreement Encounter for long-term (current) use of other medications Screen for colon cancer Special screening for malignant neoplasms, colon documented in this encounter Care Teams Small Business Consultant Relationship Specialty Start Date End Date Jean Munoz MD [address] [place] [phone] PCP - General 12/31/08 [place] [address] [place] [phone] 04/20/10 documented as of this encounter
--- OUTSIDE RECORDS SUMMARY | 2024-06-10 07:27 | XMS_ITS | Encounter Summary ---
Author Organization [facility] Address [address] [place] [address] Care Team Providers Care Manager Payroll Name Role Phone Jean Munoz MD Primary Care Provider Manny Rizzo MD Unavailable Reason for Visit * Reason Onset Date Comments Medications Refill 11/13/2013 Encounter Details Date Type Department Care Team (Late st Contact Info) Description 11/13/2013 Refill [facility] [address] [place], [place] [phone] Jean Munoz MD [address] [place] [phone] Medications Refill Social History Tobacco [...] Refills Start Date End Da te albuterol (PROVENTIL HFA) 90 mcg/actuation inhaler Inhale 1-2 Puffs as directed every 4 hours. 6.7 g 5 11/14/2013 12/13/2013 albuterol (PROVENTIL HFA) 90 mcg/actuation inhaler Inhale 1-2 Puffs as directed every 4 hours. 6.7 g 5 11/14/2013 11/14/2013 levalbuterol (XOPENEX HFA) 45 mcg/actuation inhalerIndications:Asthm a,COPD (chronic obstructive pulmonary disease) ([facility]) Inhale 1-2 Puffs as directed every 4 hours as needed for Wheezing. 3 Inhaler 0 11/13/2013 11/14/2013 sumatriptan (IMITREX) 50 mg tabletIndications:Migrai ne Take 1 Tab by mouth once as needed for 1 dose for Migraine. 9 Each 0 11/13/2013 12/13/2013 documented in this encounter Miscellaneous Notes * Telephone Encounter - Vanessa Wade - 11/14/2013 0905 EST Nikolas calling stating insurance will not pay for Xopenex. Script must be changed to Proventil or Proair. * Telephone Encounter - Yadira Mccauley RN - 11/14/2013 0855 EST Next visit is 11/27/13. Appt 11/21/13 is with T. * Telephone Encounter - Madelaine Nava - 11/13/2013 1357 EST Medication(s) Requested: Sumatriptan, Xopenex HFA Pharmacy: [facility] Last Refill Date: 06/29/2013, 06/05/2013 Last Visit Date: 10/10/2013 Next Visit Date: 11/21/2013 Is patient out of medication? unknown Madelaine Nava 11/13/2013 13:57 documented in this encounter Plan of Treatment Upcoming Encounters Date Type Department Care Team (Lakesha reyes Contact Info) Description 06/29/2024 14:15 EDT Office Visit [facility] [address] [place] [address] Jean Munoz MD [address] [place] [phone] documented as of this encounter Visit Diagnoses Diagnosis Migraine- Primary Migraine, unspecified, without mention of intractable migraine without mention of status migrainosus Asthma Unspecified asthma COPD (chronic obstructive pulmonary disease) ([facility]) Chronic airway obstruction, not elsewhere classified Screening [...] Da te levalbuterol (XOPENEX HFA) 45 mcg/actuation inhalerIndications:Ast hma,COPD (chronic obstructive pulmonary disease) ([facility]) Inhale 1-2 Puffs as directed every 4 hours as needed for Wheezing. Reorder 06/05/2013 11/13/2013 levalbuterol (XOPENEX HFA) 45 mcg/actuation inhalerIndications:Ast hma,COPD (chronic obstructive pulmonary disease) ([facility]) Inhale 1-2 Puffs as directed every 4 hours as needed for Wheezing. Insurance does not cover 11/13/2013 11/14/2013 sumatriptan (IMITREX) 50 mg tabletIndications:Migr lu Take 1 Tab by mouth once as needed for Migraine for 1 dose. Reorder 06/29/2013 11/13/2013 albuterol (PROVENTIL HFA) 90 mcg/actuation inhaler Inhale 1-2 Puffs as directed every 4 hours. Reorder 11/14/2013 11/14/2013 documented as of this encounter Care Teams Manager Payroll Relationship Specialty Start Date End Date Jean Munoz MD [address] [place] [phone] PCP - General 12/31/08 Manny Rizzo MD [address] [place] [phone] 04/20/10 documented as of this encounter
--- OUTSIDE RECORDS SUMMARY | 2024-06-10 07:27 | XMS_ITS | Encounter Summary ---
Author Organization [facility] Address [address] [place] [address] Care Team Providers Care Electronic Sales And Service Technician Name Role Phone Jean Munoz MD Primary Care Provider Manny Rizzo MD Unavailable Reason for Visit * Reason Onset Date Comments Appointment Related 08/25/2013 Encounter Details Date Type Department Care Team (Late st Contact Info) Description 08/25/2013 Telephone [facility] Pulmonology & Critical Care - [facility] [address] [place], [place] [phone] Nakita Esteban RT [address] [place] [address] Appointment Related Social History Tobacco Use Types [...] Miscellaneous Notes * Telephone Encounter - Nakita Esteban RT - 08/25/2013 0900 EST Ms Maximiliano didn't know if she should keep her appt today because she never received the overnight oximetry test. I encouraged her to keep this appointment and I contacted Johnna about the test. They will call me back. documented in this encounter Plan of Treatment Upcoming Encounters Date Type Department Care Team (Late st Contact Info) Description 06/29/2024 14:15 EDT Office Visit [facility] [address] [place] [address] Jean Munoz MD [address] [place] [phone] documented as of this encounter Visit Diagnoses Not on filedocumented in this encounter Care Teams Electronic Sales And Service Technician Relationship Specialty Start Date End Date Jean Munoz MD [address] [place] [phone] PCP - General 12/31/08 Manny Rizzo MD [address] [place] [phone] 04/20/10 documented as of this encounter
--- OUTSIDE RECORDS SUMMARY | 2024-06-10 07:27 | XMS_ITS | Encounter Summary ---
Author Organization [facility] Address [address] [place] [address] Care Team Providers Care Help Desk Analyst Name Role Phone Jean Munoz MD Primary Care Provider Manny Rizzo MD Unavailable Reason for Referral * Other Type (Routine/Next Available) - Closed Specialty Diagnoses / Procedures Referred By [facility] Referred To Contact Diagnoses SOB (shortness of breath) Extrinsic asthma, unspecified COPD (chronic obstructive pulmonary disease) ([facility]) Elham Brasher, Referral ID Status Reason Start Date Expiration Date V isits Requested Visits Authorized [id number] Closed Other 06/21/2013 1 1 Question Answer Medication to be Prior Authorized: Daliresp 500 mcg, 1 tab daily, Tierra Rossi [place], [phone], [place] Medicaid ID# [id number] Comments The purpose of this consult request is to inform the scheduling staff that a medication needs to be prior-authorized before it is prescribed and/or administered. Reason for Visit * Reason Onset Date Comments Prior Auth, Medication 06/21/2013 Daliresp Encounter Details Date Type Department Care Team (Late st Contact Info) Description 06/21/2013 Orders Only [facility] Pulmonology & Critical Care - [facility] [address] [place] [address] Elham Brasher RT SOB (shortness of breath) (Primary Dx); Extrinsic asthma, unspecified; COPD (chronic obstructive pulmonary disease) ([facility]) ([facility]) Social History Tobacco Use Types Packs/Day [...] Office Visit [facility] [address] [place] [address] Jean Munoz MD [address] [place] [phone] Scheduled Referrals Name Type Priority Associated Diagnoses Order Schedule AMB MEDICATION PRIOR AUTHORIZATION Outpatient Referral Routine SOB (shortness of breath) Extrinsic asthma, unspecified COPD (chronic obstructive pulmonary disease) ([facility]) ([facility]) Ordered: 06/21/2013 documented as of this encounter Visit Diagnoses Diagnosis SOB (shortness of breath)- Primary Shortness of breath Extrinsic asthma, unspecified COPD (chronic obstructive pulmonary disease) ([facility]) Chronic airway obstruction, not elsewhere classified Screening for osteoporosis- Primary Special screening for osteoporosis Primary narcolepsy without cataplexy Chronic pain syndrome Chronic low back pain Lumbago Chronic use of opiate for therapeutic purpose Pain medication agreement Encounter for long-term (current) use of other medications Screen for colon cancer Special screening for malignant neoplasms, colon documented in this encounter Care Teams Help Desk Analyst Relationship Specialty Start Date End Date Jean Munoz MD [address] [place] [phone] PCP - General 12/31/08 Manny Rizzo MD [address] [place] [phone] 04/20/10 documented as of this encounter
--- OUTSIDE RECORDS SUMMARY | 2024-06-10 07:27 | XMS_ITS | Encounter Summary ---
Author Organization [facility] Address [address] [place] [address] Care Team Providers Care Shoe Lay Out Planner Name Role Phone Jean Munoz MD Primary Care Provider Manny Rizzo MD Unavailable Reason for Visit * Reason Comments Eye Pain 7 day follow up for JASMINA and disorder of eyelids. Pt continues to use tobradex right eye every 6 hours. Start Zaditor twice a day to the left eye. Eye soaks every couple of hours. Restasis 2/2. A little improvement, not much. No longer itchy. No tearing. Redness both eyes. 6/10 eyepain both eyes. Vision is not blurry. No flashes. No floaters. Encounter Details Date Type Department Care Team (Late st Contact Info) Description 10/24/2013 10:30 EST Office Visit [facility] - [facility] [address] [place] [address] Giovanni Rodriguez MD [address] [facility], [address] [place] [address] Social History Tobacco Use Types [...] Diagnoses Diagnosis 374.89 DISORDERS OF EYELID NEC[ICD-9-CM] 368.8 VISUAL DISTURBANCES NEC[ICD-9-CM] 375.15 TEAR FILM INSUFFIC NOS[ICD-9-CM] documented in this encounter Ordered Prescriptions Prescription Sig Dispensed Refills Start Date End Da te cycloSPORINE (RESTASIS) 0.05 % ophthalmic emulsion Place 1 Drop into both eyes 2 times daily. 2 Tray 11 10/24/2013 04/13/2016 documented in this encounter Progress Notes * Elle Burnett OTA - 10/24/2013 1352 EST . Base Eye Exam Visual Acuity Right Left Dist cc 20/30 +2 20/30 Dist ph cc 20/25 20/25 Method: Snellen - Linear Pupils APD Right None Left None Visual Wolf Right Left Result Full Full Extraocular Movement Right Left Result Full, Ortho Full, Ortho Neuro/Psych Oriented x3: Yes Mood/Affect: Normal Cornea examined, all 5 layers. ROS, Medications, Allergies reviewed. CVF, Pupil check and EOM's rechecked to include versions & ductions. Lids, lashes, lacrimal and orbit examined. All normal unless otherwise noted. This note has been dictated and scanned. IMP: Liset was seen today for eye pain. Diagnoses and associated orders for this visit: Other disorders of eyelid(374.89) Tear film insufficiency, unspecified Blurry vision, bilateral Other Orders - cycloSPORINE (RESTASIS) 0.05 % ophthalmic emulsion; Place 1 Drop into both eyes 2 times daily. PLAN: I am scribing for Giovanni Rodriguez MD while he is personally performing the service. CARSON Arellano 10/24/2013 13:54 documented in this encounter Consult Notes * Giovanni Rodriguez MD - 10/25/2013 0713 EST DIVISION OF OPHTHALMOLOGY CONSULTATION - 10/24/2013 [place] [address] Munoz: Our mutual patient, Liset Viera, was reexamined. As you recall, there was some thought she had a conjunctivitis and had been started on tobramycin. She came in and the main abnormality, other than her dry eyes which we were well aware of, was that of having some bleeding from the right eye and that was from a vascular complex on the pretarsal conjunctiva and the tarsus of the right upper lid. Because of that, I switched her over TobraDex in the right eye stopped the tobramycin in the left eye. She has now used the TobraDex for about 5 days, starting on about the 17 of October. I am going to ask her to use for about another 5 days for about a 10 day total. The vascular complex is markedly improved. It has not completely gone away, but hopefully with steroids this will regress more. Istill am not certain if that was a pyogenic granuloma or not. She had had the same lesion a couple years ago when we saw her and had the same problems. She will stop the TobraDex in about 5 more days. She will keep using frequent tear drops and warm soaks. I will see her in a couple weeks and see if she is any more comfortable than she is at this point. Fortunately, the vascular complex has regressed significantly. Sincerely, Giovanni Rodriguez MD 02 03 PM - Giovanni Rodriguez MD cn Dictation ID: [id number] cc: Siena Rivera MD, [address] [place] [address] Jean Munoz MD, [place] [address] documented in this encounter Plan of Treatment Upcoming Encounters Date Type Department Care Team (Late st Contact Info) Description 06/29/2024 14:15 EDT Office Visit [facility] [address] [place] [address] Jean Munoz MD [address] [place] [address] documented as of this encounter Visit Diagnoses Diagnosis Pyogenic granuloma of eyelid- Primary Other disorders of eyelid Other disorders of eyelid(374.89) Other disorders of eyelid Tear film insufficiency, unspecified Blurry vision, bilateral Other specified visual disturbances Screening for osteoporosis- Primary Special screening for osteoporosis Primary narcolepsy without cataplexy Chronic pain syndrome Chronic low back pain Lumbago Chronic use of opiate for therapeutic purpose Pain medication agreement Encounter for long-term (current) use of other medications Screen for colon cancer Special screening for malignant neoplasms, colon documented in this encounter Discontinued Medications Medication Sig Discontinue Reason Start Date End Da te cyclosporine (RESTASIS) 0.05 % ophthalmic emulsion Place 1 Drop into both eyes 4 times daily. Reorder 07/05/2012 10/24/2013 documented as of this encounter Eye Exam Visual Acuity (Snellen - Linear) Right eye Left eye Dist cc 20/30 +2 20/30 Dist ph cc 20/25 20/25 Pupils APD Right eye None Left eye None Visual Wolf Right eye Left eye Full Full Extraocular Movement Right eye Left eye Full, Ortho Full, Ortho Neuro/Psych Oriented x3: Yes Mood/Affect: Normal Slit Lamp Exam Right eye Left eye Lids/Lashes Meibomian gland dysfunction Conjunctiva/Sclera 1+ Injection; area o f vascular proliferation is much better Injection; pretarsal conjunctiva quiet; dilated vessels 80-90% improved Cornea Clear Anterior Chamber Deep and quiet Care Teams Shoe Lay Out Planner Relationship Specialty Start Date End Date Jean Munoz MD [address] [place] [address] PCP - General 12/31/08 Manny Rizzo MD [address] [place] [address] 04/20/10 documented as of this encounter
--- OUTSIDE RECORDS SUMMARY | 2024-06-10 07:27 | XMS_ITS | Encounter Summary ---
Author Organization [facility] Address [address] [place] [address] Care Team Providers Care Program Therapist Name Role Phone Jean Munoz MD Primary Care Provider Manny Rizzo MD Unavailable Reason for Visit * Reason Comments Eye Problem Patient reports that for three weeks both eyes have been red and runny. She was seen by her primary last wednesday and put on a regime of tobramycin qid to both eyes for pink eye. No improvement noticed by patient and she continued to have itchy, painful and teary eyes. Her pain is 7/10. The past two days her vision has become blurry in both eys. Per Dr. Rodriguez patient stopped the tobramycin yesterday. Encounter Details Date Type Department Care Team (Late st Contact Info) Description 10/17/2013 13:30 EST Office Visit [facility] Ophthalmology - [facility] [address], [place] [address] Giovanni Rodriguez MD [address] [facility], [address] [place] [address] Social History Tobacco Use Types [...] FILM INSUFFIC NOS[ICD-9-CM] documented in this encounter Patient Instructions * Patient Instructions* Giovanni Rodriguez MD - 10/17/2013 15:10 EST PLAN:Stop tobramycin Start tobradex 4 times a day to the right eye. Start Zaditor twice a day to the left eye Warm soaks as tolerated to the right eye. See me in one week. documented in this encounter Ordered Prescriptions Prescription Sig Dispensed Refills Start Date End Da te tobramycin-dexamethasone (TOBRADEX) ophthalmic solution Place 1 Drop into the right eye every 6 hours for 9 days. 1 Bottle 0 10/17/2013 10/26/2013 documented in this encounter Progress Notes * Giovanni Rodriguez MD - 10/17/2013 8499 EST . Base Eye Exam Visual Acuity Right Left Dist cc 20/30 -1 20/40 Dist ph cc NI NI Method: Snellen - Linear Correction: Glasses Pupils Dark APD Right 4 None Left 4 None Visual Wolf Right Left Result Full [...] IMP: Liset was seen today for eye problem. Diagnoses and associated orders for this visit: Tear film insufficiency, unspecified Blurry vision, bilateral Recurrent vascular area under RUL- ? Pyogenic granuloma. Had seen Dr. Rivera for same problem in 2011. Doubt allergic reaction to tobramycin. Will stat tobradex right eye 4X per day- Will see in 7 days.? Return to Dr. Rivera.For right eye try Zaditor twice a day- DC Tobramycin left eye. PLAN:Stop tobramycin Start tobradex 4 times a day to the right eye. Start Zaditor twice a day to the left eye Warm soaks as tolerated to the right eye. See me in one week. I am scribing for Giovanni Rodriguez MD while he is personally performing the service. Elle Burnett, STUDIO ARTIST 10/17/2013 14:44 documented in this encounter Consult Notes * Giovanni Rodriguez MD - 10/18/2013 0805 EST DIVISION OF OPHTHALMOLOGY CONSULTATION - 10/17/2013 Jean Munoz MD [id number] [place] [address] Munoz: I saw our mutual patient, Liset Viera. As you are aware, she had been seen in your office last Wednesday, that is a week ago. She had some irritation of the eyes and some mucus and goopiness and is sticking shut in the morning. Because of this, she was started on tobramycin drops. She used them andthe goopiness has improved a bit, but she is still uncomfortable. We know that she has quite dry eyes. In addition, she has a past history of having had a vascular area under the right upper lid, which I thought was possibly a pyogenic granuloma when I saw her about a year and a half ago and asked her to see Dr Siena Rivera. That did resolve, although was stillsomewhat irritated. She had had some spontaneous bleeding from that area. No further cautery was carried out. The patient comes in today and her vision is not affected. Her vision is slightly decreased at 20/30 and 20/40 and does not improve with pinhole. A dilated examination was deferred. Pertinent findings included some slight injection of the palpebral and bulbar conjunctiva, but no mary erythema and c ertainly no induration or inflammation of the palpebral conjunctiva other than the area that is again in the right upper lid on the pretarsal conjunctiva with what appears to be possibly a small chalazion with some dilated vessels on the surface. This is very similar to what I recall seeing a year and a half ago. The upper lid on the conjunctiva on the left side is completely normal. There is no particular mucus in the tear film. There was incidentally a lash in the superior sulcus superiorly on the left eye and this was removed. It is important to note that there was no stain of the cornea. There was only some staining with lissamine green on the left eye more than the right, as well as a rapid breakup of the tear film time,totally consistent with very dry eyes, which we know she has. I have recommended that she stop the tobramycin to both eyes, number 1. Number 2, I have recommended starting TobraDex to the right eye. Finally, I have recommended using Zaditor to the left eye and that will help with some erythema and itching and discomfort. I have also asked her to use warm compresses on the right eye frequently as she can stand them and tolerate them. Finally, I will see her in 1 week. Hopefully, the tobramycin with the steroid in it will quiet down the inflammation in the area and also cut down the vascular proliferation that I believe is a pyogenic granuloma. She will give us a call if there is change or concern. If there is a persistence to the lesion, I am again going to ask Dr Rivera to take a look at that lid that once more. In the meantime, she will carry out the steps we have outlined. I will see her again in 1 week. Sincerely, Giovanni Rodriguez MD 03 14 PM - Giovanni Rodriguez MD cn Dictation ID: [id number] cc: Jean Munoz MD, [address] [address] documented in this encounter Plan of Treatment Upcoming Encounters Date Type Department Care Team (Late st Contact Info) Description 06/29/2024 14:15 EDT Office Visit [facility] [address] [place] [address] Jean Munoz MD [address] [place] [address] documented as of this encounter Visit Diagnoses Diagnosis Tear film insufficiency, unspecified- Primary Blurry vision, bilateral Other specified visual disturbances Pyogenic granuloma of eyelid Other disorders of eyelid Screening for osteoporosis- Primary Special screening for osteoporosis Primary narcolepsy without cataplexy Chronic pain syndrome Chronic low back pain Lumbago Chronic use of opiate for therapeutic purpose Pain medication agreement Encounter for long-term (current) use of other medications Screen for colon cancer Special screening for malignant neoplasms, colon documented in this encounter Discontinued Medications Medication Sig Discontinue Reason Start Date End Da te tobramycin (TOBREX) 0.3 % ophthalmic solutionIndications:Conju nctivitis of both eyes Place 1-2 Drops into both eyes 4 times daily. 10/10/2013 10/17/2013 documented as of this encounter Eye Exam Visual Acuity (Snellen - Linear) Right eye Left eye Dist cc 20/30 -1 20/40 Dist ph cc NI NI Correction: Glasses Pupils Dark APD Right eye 4 None Left eye 4 None Visual Wolf Right eye Left eye Full Full Extraocular Movement Right eye Left eye Full, Ortho Full, Ortho Neuro/Psych Oriented x3: Yes Mood/Affect: Normal Slit Lamp Exam Right eye Left eye Lids/Lashes Meibomian gland dysfunction Meib omian gland dysfunction Conjunctiva/Sclera Injection; trace stain with l .g. Injection; 1+ stain with l.g. Cornea Clear; TBUT 1 second Clear; TBUT 1 second Anterior Chamber Deep and quiet; no cells/flare Deep and quiet; no cells/flare Iris Round and reactive Round and hitesh ctive Care Teams Program Therapist Relationship Specialty Start Date End Date Jean Munoz MD [address] [place] [address] PCP - General 12/31/08 Manny Rizzo MD [address] [place] [address] 04/20/10 documented as of this encounter
--- OUTSIDE RECORDS SUMMARY | 2024-06-10 07:27 | XMS_ITS | Encounter Summary ---
Author Organization [facility] Address [address] [place] [address] Care Team Providers Care Kraft Digester Operator Name Role Phone Jean Munoz MD Primary Care Provider Manny Rizzo MD Unavailable Reason for Referral * Consult (Routine/Next Available) - Closed Specialty Diagnoses / Procedures [facility] Referred To Contact Diagnoses Irritable bowel syndrome (IBS) Jean Munoz MD [address] [place] [phone] Referral ID Status Reason Start Date Expiration Date V isits Requested Visits Authorized [id number] Closed Specialty Services Required 09/21/2013 1 1 Question Answer What areas would you like the [facility] to focus on? Nutrition Help - low FODMAP for IBS Patient's Weight (kg) (1 lb = 0.4536 kg): 90.992 Patient's Height (cm) (1 in = 2.54 cm): 162.6 Comments As we discussed in your visit today, someone will be contacting you from the [facility] Team to schedule an appointment with you. If you do not hear from the [facility] within a week please call the Community Health Team at [phone]. Reason for Visit * Reason Comments Back Pain Medication Management Encounter Details Date Type Department Care Team (Late st Contact Info) Description 09/21/2013 11:30 EST Office Visit [facility] [address] [place] [address] Jean Munoz MD [address] [place] [address] Irritable bowel syndrome (IBS) (Primary Dx); Chronic back pain; Left knee pain; Asthma; Insomnia; Restless legs syndrome; Pain medication agreement Discharge Disposition: Auto Discharge Social History Tobacco [...] Sign Reading Time Taken Comments Blood Pressure 122/80 09/21/2013 1154 EST Pulse 68 09/21/2013 1154 EST Temperature 37.2 ??C (99 ??F) 09/21/2013 1154 EST Respiratory Rate 16 09/21/2013 1154 EST Oxygen Saturation - - Inhaled Oxygen Concentration - - Weight 91 kg (200 lb 9.6 oz) 09/21/2013 1154 EST Height 162.6 cm (5' 4) 09/21/2013 1154 EST Body Mass Index 34.43 09/21/2013 1154 EST documented in this encounter Functional Status Cognitive Status Response Date of Assessm ent Because of a physical, menta l, or emotional condition, do you have serious difficulty concentrating, remembering, or making decisions? (5 years old or older) Yes 02/26/2013 documented as of this encounter Discharge Diagnoses Diagnosis 564.1 IRRITABLE COLON[ICD-9-CM] 724.5 BACKACHE NOS[ICD-9-CM] 719.46 JOINT PAIN-L/LEG[ICD-9-CM] 493.90 ASTHMA, UNSPECIFIED[ICD-9-CM] 780.52 INSOMNIA, UNSPECIFIED[ICD-9-CM] 333.94 RESTLESS LEGS SYNDROME[ICD-9-CM] V58.69 [facility] HOME USE MEDICATN[ICD-9-CM] documented in this encounter Ordered Prescriptions Prescription Sig Dispensed Refills Start Date End Da te HYDROcodone-acetaminophen (LORTAB) 5-500 mg tabletIndications:Left knee pain Take 1 Tab by mouth every 6 hours as needed for Pain for 28 days. 112 Tab 0 09/21/2013 02/16/2014 HYDROcodone-acetaminophen (LORTAB) 5-500 mg tabletIndications:Left knee pain Take 1 Tab by mouth every 6 hours as needed for Pain for 28 days. 112 Tab 0 10/19/2013 02/16/2014 HYDROcodone-acetaminophen (LORTAB) 5-500 mg tabletIndications:Left knee pain Take 1 Tab by mouth every 6 hours as needed for Pain for 28 days. 112 Tab 0 11/16/2013 12/13/2013 zolpidem (AMBIEN) 5 mg tabletIndications:Insomni a Take 1 Tab by mouth at bedtime as needed for Sleep. 30 Each 2 09/21/2013 12/13/2013 rOPINIRole (REQUIP) 2 mg tabletIndications:Restles s legs syndrome Take 1 Tab by mouth at bedtime. 90 Tab 2 09/21/2013 12/13/2013 documented in this encounter Discharge Disposition Disposition Code Departure Means Destination Auto Discharge documented in this encounter Progress Notes * Jean Munoz MD - 09/21/2013 1220 EST Subjective: Patient ID: Liset Viera is an 52 y.o. female. Chief Complaint Patient presents with ??? Back Pain ??? Medication Management HPI Here for F/U of several issues Now with intermittent upset stomach Diarrhea No blood Nausea, no vomiting T 102 normallly I run low Phx includes IBS Back pain Plans to have another injection Knee pain Saw Dr Glynn in June, had injection, patient states did not help No F/U yet Chronic pain due to above Still on hydrocodone No recent UDS COPD/asthma Breathing better Urinary heistancy F/U pending with Urology No Tob, but 2nd hand smoke exposure Patient Active Problem List Diagnosis ??? Severe [...] pulmonary disease ??? Abdominal pain, unspecified site Past Medical History Diagnosis Date ??? UTI [...] 2 times daily. 3 Inhaler 0 ??? Hydrocodone-Acetaminophen 5-500 mg capsule Take [...] rarely ROS - See HPI Objective: BP 122/80 Pulse 68 Temp(Src) 37.2 ??C (99 ??F) (Tympanic) Resp 16 Ht 162.6 cm (64) Wt 90.992 kg (200 lb 9.6 oz) BMI 34.42 kg/m2 LMP 01/11/1987 Physical Exam deferred Assessment: Plan: Liset was seen today for back pain and medication management. Diagnoses and associated orders for this visit: Irritable bowel syndrome (IBS) - May have had recent infectious gastroenteritis - Ambulatory Consult Community Care Team for nutrition consult re low FODMAPS diet Chronic back pain Left knee pain - HYDROcodone-acetaminophen (LORTAB) 5-500 mg tablet; Take 1 Tab by mouth every 6 hours as needed for Pain for 28 days. - HYDROcodone-acetaminophen (LORTAB) 5-500 mg tablet; Take 1 Tab by mouth every 6 hours as needed for Pain for 28 days. - HYDROcodone-acetaminophen (LORTAB) 5-500 mg tablet; Take 1 Tab by mouth every 6 hours as needed for Pain for 28 days. F/U Dr Glynn Will get UD6 and opiate confirmation today Asthma Improved Insomnia - zolpidem (AMBIEN) 5 mg tablet; Take 1 Tab by mouth at bedtime as needed for Sleep. Restless legs syndrome - rOPINIRole (REQUIP) 2 mg tablet; Take 1 Tab by mouth at bedtime. Pain medication agreement - Drug Screen 6 - Opiate Confirmation, Urine Agreement reviewed with patient today Opiate surveillance: A MS([place] Prescription Monitoring System) report on this patient was printed and reviewed today to ensure the prescribing and dispensing of his medications is in accordance with the treatment plan Patient Education Topic: as above Method: Verbal Taught to: Patient Barriers: None Outcomes: Verbalized understanding Return in 3 months (on 12/14/2013) for SERA. documented in this encounter Plan of Treatment Upcoming Encounters Date Type Department Care Team (Late st Contact Info) Description 06/29/2024 14:15 EDT Office Visit [facility] [address] [place] [address] Jean Munoz MD [address] [place] [address] Scheduled Referrals Name Type Priority Associated Diagnoses Orde r Schedule AMB CONSULT [facility] Outpatient Referral Routine Irritable bowel syndrome (IBS) Ordered: 09/21/2013 documented as of this encounter Procedures Procedure Name Priority Date/Time Associated Diagnosis Comments DRUG SCREEN 6 Routine 09/21/2013 12:43 EST Pain medication agreement OPIATE PANEL CONFIRMATION Routine 09/21/2013 12:43 EST Pain medication agreement documented in this encounter Results * OPIATE CONFIRMATION, URINE (09/21/2013 12:43 EST) Conf, Opiates Positive [facility] Codeine Negative <100 ng/mL [facility] Hydrocodone Negative <100 ng/mL [facility] Hydromorphone Negative <100 ng/mL [facility] Morphine 163 <100 ng/mL [facility] Comment: (Note) Presence of morphine at low concentration (< 2000 ng/mL) may be due to poppy seed ingestion. Oxycodone 525 <100 ng/mL [facility] Oxymorphone 315 <100 ng/mL [facility] Comment: (Note) This report is intended for use in clinical monitoring and management of patients. It is not intended for use in employment-related drug testing. Performed by: [facility] [place], [address], [place] [address], Licensed Occupational Therapist: Liset Dick, Ph.D. Urine specimen (specimen) URINE / Unknown 09/21/2013 12:43 EST 09/21/2013 16:39 EST Jean Munoz MD URINALYSIS [facility] Performing Organization Address City/[facility]/ZIP Co de Phone Number [facility] [address] [place] [address] * DRUG SCREEN 6 (09/21/2013 12:43 EST) Amphetamine Screen, Urine Negative screen. [facility] Comment: Confirmation testing available upon request. Suitable for medical purposes only. Will not detect all drugs within class. Cutoff = 1000 ng/ml Barbiturate Screen, Urine Negative screen. [facility] Comment: Confirmation testing available upon request. Suitable for medical purposes only. Will not detect all drugs within class. Cutoff = 300 ng/ml Benzodiazepine Screen, Urine Presumptive positive, interpret with caution. [facility] Comment: Confirmation testing available upon request. Suitable for medical purposes only. Will not detect all drugs within class. Assay less sensitive to Lorazepam and metabolites. Cutoff = 200 ng/ml Cannabinoid Scrn, Ur Presumptive positive, interpret with caution. [facility] Comment: Confirmation testing available upon request. Suitable for medical purposes only. Will not detect all drugs within class. Cutoff = 50 ng/ml Opiate Scrn, Ur Presumptive positive, interpret with caution. [facility] Comment: Confirmation testing available upon request. Suitable for medical purposes only. Will not detect all drugs within class. Cutoff = 300 ng/ml Assay less sensitive to oxycodone and metabolites. Assay does not detect methadone. Cocaine Metabolites Negative screen. [facility] Comment: Confirmation testing available upon request. Suitable for medical purposes only. Will not detect all drugs within class. Cutoff = 300 ng/ml Urine specimen (specimen) URINE / Unknown 09/21/2013 12:43 EST 09/21/2013 16:39 EST Jean Munoz MD URINALYSIS [facility] Performing Organization Address City/[facility]/ZIP Co de Phone Number [facility] [address] [place] [address] documented in this encounter Visit Diagnoses Diagnosis Irritable bowel syndrome (IBS)- Primary Irritable bowel syndrome Chronic back pain Backache, unspecified Left knee pain Pain in joint, lower leg Asthma Unspecified asthma Insomnia Insomnia, unspecified Restless legs syndrome Restless legs syndrome (RLS) Pain medication agreement Encounter for long-term (current) [...] 2 mg tabletIndications:Restle ss legs syndrome TAKE ONE TABLET BY MOUTH AT BEDTIME Reorder 06/04/2013 09/21/2013 zolpidem (AMBIEN) 5 mg tabletIndications:Insomn ia Take 1 Tab by mouth at bedtime as needed for Sleep. Reorder 06/13/2013 09/21/2013 HYDROcodone-acetaminophe n (LORTAB) 5-500 mg tabletIndications:Left knee pain Take 1 Tab by mouth every 6 hours as needed for Pain for 28 days. Reorder 06/29/2013 09/21/2013 HYDROcodone-acetaminophe n (LORTAB) 5-500 mg tabletIndications:Left knee pain Take 1 Tab by mouth every 6 hours as needed for Pain for 28 days. Reorder 07/27/2013 09/21/2013 HYDROcodone-acetaminophe n (LORTAB) 5-500 mg tabletIndications:Left knee pain Take 1 Tab by mouth every 6 hours as needed for Pain for 28 days. Reorder 08/24/2013 09/21/2013 documented as of this encounter Care Teams Kraft Digester Operator Relationship Specialty Start Date End Date Jean Munoz MD [address] [place] [phone] PCP - General 12/31/08 Manny Rizzo MD [address] [place] [address] 04/20/10 documented as of this encounter
--- OUTSIDE RECORDS SUMMARY | 2024-06-10 07:27 | XMS_ITS | Encounter Summary ---
Author Organization [facility] Address [address] [place] [address] Care Team Providers Care Subsystems Engineer Name Role Phone Jean Munoz MD Primary Care Provider Manny Rizzo MD Unavailable Reason for Visit * Reason Comments Knee Pain left knee pain Encounter Details Date Type Department Care Team (Late st Contact Info) Description 06/19/2013 9:30 EDT Office Visit [facility] Medicine Program - [address] [phone] Bear Glynn MD [address] [place] [phone] Left knee pain (Primary Dx) Social History Tobacco Use [...] - - Weight 90.7 kg (200 lb) 06/19/2013 0950 EDT Height 162.6 cm (5' 4) 06/19/2013 0950 EDT Body Mass Index 34.33 06/19/2013 0950 EDT documented in this encounter Functional Status Cognitive Status Response Date of Assessm ent Because of a physical, menta l, or emotional condition, do you have serious difficulty concentrating, remembering, or making decisions? (5 years old or older) Yes 02/26/2013 documented as of this encounter Progress Notes * Jadyn Cobos - 06/20/2013 0955 EDT I. Patient is here for intraarticular injection - Sensorcaine 5cc of 0.5 % mg/mL 1. Med given in left knee by intraarticular route. 2. Med lot number: [id number] 3. Exp date: 12.12.2016 Gym Instructor: [employer]. I. Patient is here for intraarticular injection- Kenelog 50mg/mL 1. Med given in left knee by intraarticular route. 2. Med lot number: [id number] 3. Exp date: 10/2014 Gym Instructor: [employer]. Jadyn Cobos * Bear Glynn MD - 06/19/2013 1121 EDT PROBLEM: Left knee pain. SUBJECTIVE: Ms Viera returns today for followup of her MRI. This was performed in February. She notes that she had a difficult summer with multiple medical issues for which she was hospitalized. She is finally feeling better and is here today for followup. She notes that her knee gives way. It is not always secondary to pain. She has occasional swelling.This occurs when she does too much walking such as shopping. Her knee also becomes sore. She cannottake nonsteroidal anti-inflammatories and has been on Vicodin 5 mg for the last 6 months. She takesfour tablets a day. OBJECTIVE: Examination of the left lower extremity shows full pain free range of motion of the lefthip. Examination of the left knee shows full extension, full flexion, no palpable effusion, medial patellar tenderness. There is tenderness along the medial joint line as well as a positive Cleve sign.Pain with hyperflexion. There is no lateral joint line tenderness. Negative Micha, negative posterior drawer. The knee is stable to varus and valgus stress in full extension or 30 degrees of flexion. Review of her MR dated 02/28/2013 shows no change in the images. There is decreased signal in the medial compartment on the T1 coronal images. There is truncation of the mid portion of the medial meniscus with increased signal of the posterior horn. It is difficult for me to interpret the radiologist's report as he speaks of a radial tear; however, when I view her images there is no obvious radial tear apparent. The articular cartilage of the medial and lateral compartments appears to be intact. The lateral meniscus is within normal limits. The MCL, ACL, PCL, and posterolateral corner structures are intact. There is some slight chondrosis of the central portion of the patella. At this point, I cannot identify any structural changes. The changes within the meniscus appear to be degenerative and are not at the point where I feel that arthroscopy is an option at this point. We discussed treatments including surgery versus leaving things the way they are. She has already hada course of physical therapy without any resolution of her symptoms. During our discussion of injection, she wishes to pursue this. Risks, benefits, and alternatives were discussed with the patient [...] was verbally confirmed prior to the procedure. The left knee was injected with 5 mL of 0.5% Marcaine without epinephrine and 5 mL of Kenalog 10 mg per mL. ASSESSMENT: Medial knee pain, left. PLAN: We will see how Ms Viera does following the injection. She will call us if she continues to have symptoms. documented in this encounter Plan of Treatment Upcoming Encounters Date Type Department Care Team (Late st Contact Info) Description 06/29/2024 14:15 EDT Office Visit [address] [address] Jean Munoz MD [address] [place] [phone] documented as of this encounter Visit Diagnoses [...] colon documented in this encounter Care Teams Subsystems Engineer Relationship Specialty Start Date End Date Jean Munoz MD [address] [place] [phone] PCP - General 12/31/08 Manny Rizzo MD [address] [place] [phone] 04/20/10 documented as of this encounter
--- OUTSIDE RECORDS SUMMARY | 2024-06-10 07:27 | XMS_ITS | Encounter Summary ---
Author Organization [facility] Address [address] [place] [address] Care Team Providers Care Relay Technician Name Role Phone Jean Munoz MD Primary Care Provider Manny Rizzo MD Unavailable Reason for Visit * Reason Onset Date Comments Medications Refill 08/28/2013 Encounter Details Date Type Department Care Team (Late st Contact Info) Description 08/28/2013 Telephone [facility] Sleep Program - [address] [phone] Tiana Bacon [address] [place] [phone] Medications Refill Social History Tobacco Use [...] Tabs by mouth daily. 60 Tab 0 08/30/2013 09/25/2013 methylphenidate (RITALIN;METHYLIN) 10 mg tablet Take one tab in the afternoon for narcolepsy 30 Tab 0 08/30/2013 09/25/2013 documented in this encounter Miscellaneous Notes * Telephone Encounter - Corrina Ac RN - 08/29/2013 0912 EST Left message for pt to let know (Ritalin ) prescriptions ready [facility]. * Telephone Encounter - Duy Booth - 08/28/2013 1420 EST Calling to request refills of Ritalin. She would like to pick them up on Wednesday. documented in this encounter Plan of Treatment Upcoming Encounters Date Type Department Care Team (Late st Contact Info) Description 06/29/2024 14:15 EDT Office Visit [facility] [address] [place] [address] Jean Munoz MD [address] [place] [phone] documented as of this encounter Visit Diagnoses Not on filedocumented in this encounter Discontinued Medications Medication Sig Discontinue Reason Start Date End Da te methylphenidate (RITALIN;METHYLIN) 10 mg tablet Take one tab in the afternoon for narcolepsy Reorder 08/02/2013 08/28/2013 methylphenidate (RITALIN;METHYLIN) 20 mg tablet Take 2 Tabs by mouth daily. Reorder 08/02/2013 08/28/2013 documented as of this encounter Care Teams Relay Technician Relationship Specialty Start Date End Date Jean Munoz MD [address] [place] [phone] PCP - General 12/31/08 Manny Rizzo MD [address] [place] [phone] 04/20/10 documented as of this encounter
--- OUTSIDE RECORDS SUMMARY | 2024-06-10 07:27 | XMS_ITS | Encounter Summary ---
Author Organization [facility] Address [address] [place] [address] Care Team Providers Care Pipe Coverer And Insulator Name Role Phone Jean Munoz MD Primary Care Provider Manny Rizzo MD Unavailable Reason for Visit * Reason Onset Date Comments Medication Problem 09/21/2013 Encounter Details Date Type Department Care Team (Late st Contact Info) Description 09/21/2013 Telephone [facility] [address] [place] [address] Jean Munoz MD [address] [place] [phone] Medication Problem Social History Tobacco Use [...] * Telephone Encounter - Rukhsana Molina - 09/21/2013 1458 EST Called pharmacist to let her know of the change. * Telephone Encounter - Jean Munoz MD - 09/21/2013 1354 EST Ok to change to 5/325, please let them know, thanks * Telephone Encounter - Rukhsana Molina - 09/21/2013 1352 EST Irlanda the pharmacist is calling because pt got prescriptions for 5/500mg hydrocodone-acetominophine. They no longer make the dosage. IT has to be 5/325. Irlanda states that if prescription is approved we can just call it into her and she will shred the ones she has. documented in this encounter Plan of Treatment Upcoming Encounters Date Type Department Care Team (Late st Contact Info) Description 06/29/2024 14:15 EDT Office Visit [facility] [address] [place] [address] Jean Munoz MD [address] [place] [phone] documented as of this encounter Visit Diagnoses Not on filedocumented in this encounter Care Teams Pipe Coverer And Insulator Relationship Specialty Start Date End Date Jean Munoz MD [address] [place] [phone] PCP - General 12/31/08 Manny Rizzo MD [address] [place] [address] 04/20/10 documented as of this encounter
--- OUTSIDE RECORDS SUMMARY | 2024-06-10 07:27 | XMS_ITS | Encounter Summary ---
Author Organization [facility] Address [address] [place] [address] Care Team Providers Care Bander Name Role Phone Jean Munoz MD Primary Care Provider Manny Rizzo MD Unavailable Reason for Visit * Reason Comments Dizziness Encounter Details Date Type Department Care Team (Late st Contact Info) Description 07/25/2013 9:30 EST Office Visit [facility] [address], [place] [id number] Unknown, Provider, Audiology, Schedule Ent Vertigo (Primary Dx) Social History Tobacco Use Types [...] as of this encounter Progress Notes * Manjeet Miller, [facility] - 07/25/2013 1405 EST VNG REPORT NAME: Liset Viera : 1960 DATE OF SERVICE: 07/25/2013 ATTENDING: Liu Brown M.D. REFERRING: Shell Vallejo M.D. INDICATIONS FOR PROCEDURE: Vertigo TEST ADMINISTERED BY: Wendi Michaels, [facility] HISTORY: The patient was referred by Dr. Vallejo for VNG testing. The patient was seen by Dr. Vallejo on Jan 18 2013 and notes of that appointment are in [facility]. The patient noted a history significant for dizziness following certain motions. She has seen neurology and had MRI/MRA which were reportedly normal. She has seen Kriss Chavez for vestibular rehabilitation. At today's appointment she reported her symptoms continue with no worsening or improving in severity, frequency, or duration. She indicated moving from a sitting to a standing position causes dizziness. She reports no change in hearing status. She reports constant bilateral tinnitus that is greaterin her right ear. A repeat audiological evaluation today indicated normal hearing status with the exception of a bilateral symmetrical hearing loss at 8000Hz. Tympanometry was normal. The patient has an extensive medication list which is attached. The patient noted she has been taking all of them for 6 months or longer. She did not discontinue any prior to today's VNG testing. RESULTS: 1. SPONTANEOUS TESTING: No significant nystagmus noted. 2. VISUAL TESTING: A: GAZE: Normal. The patient did note that she had double vision and saw two lights during Gaze Center and especially Gaze Left. B: TRACKING: Normal C: SACCADE: Initial testing revealed normal accuracy and latency with bilaterally reduced velocity.When repeated, leftward velocity improved to normal, while rightward velocity remained reduced. D: OPK: Normal 3: POSITIONAL TESTING: HALLPIKE RIGHT: No significant nystagmus noted. No torsional movement noted. HALLPIKE LEFT: No significant nystagmus noted. No torsional movement noted. HALLPIKE CENTER: DNT CERVICAL CENTER: No significant nystagmus noted. CERVICAL RIGHT: No significant nystagmus noted. CERVICAL LEFT: No significant nystagmus noted. SUPINE CENTER: No significant nystagmus noted. SUPINE RIGHT: No significant nystagmus noted. SUPINE LEFT: No significant nystagmus noted. LATERAL RIGHT: No significant nystagmus noted. LATERAL LEFT: No significant nystagmus noted. The patient reported no increased dizziness or spinning sensation during Positional testing. 4: BI-THERMAL CALORIC TESTING: A: Measurable and appropriate direction nystagmus was noted for Cool Right, Cool Left, Warm Right, Warm Left B: Unilateral weakness: 0% C: Directional Preponderance: 24% NOTE: During Caloric testing the patient needed constant reminding to keep her eyes open and attendto the task. Tracings reflect this. IMRESSION: *Positional testing and Caloric testing normal. *Visual testing normal with the exception of saccades. *Saccade testing revealed bilaterally reduced velocity initially. Repeat testing revealed reduced rightward velocity and normal leftward velocity. Asymmetric results can be consistent with central findings. However, results should be interpreted with caution as reduced visual acuity and inattentioncan result in abnormal results. The patient was not wearing her corrective eyewear during testing and she commented on having double vision at times during testing. Additionally, the patient requiredalmost constant verbal reminding throughout testing to stay on task. Wendi Michaels, CCC-A Clinical Deskidding Machine Operator documented in this encounter Procedure Notes * Liu Brown MD - 07/29/2013 1116 EST DIVISION OF OTOLARYNGOLOGY OFFICE PROCEDURE - 07/25/2013 SALES PROMOTER: Liu Brown MD. DATE OF INTERPRETATION: 07/29/2013 RESULTS: 1. Spontaneous testing. There is no spontaneous nystagmus noted. 2. Visual testing revealed normal gaze, normal tracking, and normal optokinetic testing. Of note, the patient had complaints of diplopia during gaze testing. 3. She had abnormal reduced velocity with initial saccade testing bilaterally; however when repeated, leftward velocity improved to normal while rightward velocity remained reduced. Her accuracy and latency were found to be normal during saccade testing. 4. Positional testing revealed no significant nystagmus with Hallpike right and left, cervical right and left and center, supine right and left and center, lateral left and lateral right. Furthermore, there is no complaint of increased dizziness or spinning sensation during positional testing. 5. Bithermal caloric testing revealed strong and symmetric caloric responses bilaterally. There is no significant unilateral weakness or directional preponderance. IMPRESSION: The patient had normal testing for both positional and caloric testing. Visual testing was normal except for saccade testing. Saccade testing revealed reduced rightward velocity on repeattesting. These results can be consistent with the central finding; however, with other ocular testing being normal, it is possible that this could be related to the fact the patient was not wearing any corrective eyewear during testing and required constant verbal reminding throughout the task, as well as having a subjective complaint of diplopia during gaze testing. Liu Brown MD 10 49 AM - Liu Brown MD mn Dictation ID: [id number] cc: Shell Vallejo MD, FA - Otolaryngology [address] [place] [id number] documented in this encounter Plan of Treatment Upcoming Encounters Date Type Department Care Team (Late st Contact Info) Description 06/29/2024 14:15 EDT Office Visit [facility]note 3] [address] [place] [address] Jean Munoz MD [address] [place] [phone] documented as of this encounter Visit Diagnoses Diagnosis Vertigo- Primary Dizziness and giddiness Screening for osteoporosis- Primary Special screening for osteoporosis Primary narcolepsy without cataplexy Chronic pain syndrome Chronic low back pain Lumbago Chronic use of opiate for therapeutic purpose Pain medication agreement Encounter for long-term (current) use of other medications Screen for colon cancer Special screening for malignant neoplasms, colon documented in this encounter Care Teams Bander Relationship Specialty Start Date End Date Jean Munoz MD [address] [place] [address] PCP - General 12/31/08 Manny Rizzo MD [address] [place] [address] 04/20/10 documented as of this encounter
--- OUTSIDE RECORDS SUMMARY | 2024-06-10 07:27 | XMS_ITS | Encounter Summary ---
Author Organization [facility] Address [address] [place] [address] Care Team Providers Care Faith Doctor Name Role Phone Jean Munoz MD Primary Care Provider Manny Rizzo MD Unavailable Reason for Referral * Consult (Routine/Next Available) - Closed Specialty Diagnoses / Procedures Referred By [facility] Referred To Contact Pulmonary Disease Diagnoses COPD (chronic obstructive pulmonary disease) ([facility]) Physical deconditioning Jeanette Virk MD [address] [facility], [address] [place] [address] [facility] [address] [place] [address] Referral ID Status Reason Start Date Expiration Date V isits Requested Visits Authorized [id number] Closed Specialty Services Required 06/21/2013 1 1 Question Answer Reason for Request: severe COPD, deconditioning Reason for Visit * Reason Comments Asthma Encounter Details Date Type Department Care Team (Late st Contact Info) Description 06/21/2013 12:00 EDT Office Visit [facility] Pulmonology & Critical Care - [address] [address] Jeanette Virk MD [address] [place] [address], [address] [place] [phone] COPD (chronic obstructive pulmonary disease) ([facility]) ([facility]) (Primary Dx); SOB (shortness of breath); Asthma; Physical deconditioning Social History Tobacco Use Types Packs/Day Years [...] Sign Reading Time Taken Comments Blood Pressure 144/80 06/21/2013 1126 EDT Pulse 89 06/21/2013 1126 EDT Temperature 37.4 ??C (99.3 ??F) 06/21/2013 1126 EDT Respiratory Rate 14 06/21/2013 1126 EDT Oxygen Saturation 97% 06/21/2013 1126 EDT Inhaled Oxygen Concentration - - Weight 91.4 kg (201 lb 8 oz) 06/21/2013 1126 EDT Height 162.4 cm (5' 3.94) 06/21/2013 1126 EDT Body Mass Index 34.66 06/21/2013 1126 EDT documented in this encounter Functional Status Cognitive Status Response Date of Assessm ent Because of a physical, menta l, or emotional condition, do you have serious difficulty concentrating, remembering, or making decisions? (5 years old or older) Yes 02/26/2013 documented as of this encounter Patient Instructions * Patient Instructions* Jeanette Virk MD - 06/21/2013 12:19 EDT 1. Keep using Acapella, you can use this up to 4 times a day 2. Start Roflumilast 1 tablet once a day 3. We will get overnight oximetry to see if you need oxygen at night 4. I have referred to you pulmonary rehab 5. Get flu shot when available documented in this encounter Ordered Prescriptions Prescription Sig Dispensed Refills Start Date End Da te roflumilast (DALIRESP) 500 mcg tablet Take 1 Tab by mouth daily. 30 Tab 5 06/21/2013 02/10/2014 documented in this encounter Progress Notes * Jeanette Virk MD - 06/21/2013 1148 EDT DIVISION OF PULMONOLOGY? PROGRESS/FOLLOWUP NOTE -06/21/2013 ?? Jean Munoz MD [address] [facility] [place] [address] REASON FOR VISIT: Encounter Diagnoses Name Primary? COPD (chronic obstructive pulmonary disease) Yes ??? SOB (shortness of breath) ??? Asthma INTERVAL HISTORY: Liset Viera was seen in pulmonary clinic today for evaluation of the above medical problems. They were last seen in the pulmonary clinic on 06/28/13. At that time, we senior product marketing manager her Advair to HFA, and discussed avoidance of triggers for her asthma. In the interval since the last visit, she had a severe COPD exacerbation in the setting of community aqcuired pneumonia, for which she required hospitalization. She also had an exacerbation last week. At that time she saw Dr. Ernandez and got prednisone, which she feels has helped significantly. Last week she also did a 6 minute walk test, which did not show any desaturation. Based on that shewas not able to keep her oxygen, which is very upset about, she feels that this has helped her significantly. She feels that her sleep is much worse without using nocturnal oxygen. She has ongoing secondhand tobacco exposure. She actually smells very strongly of tobacco at this visit, but is adamant that she herself is not smoking. She notes that she is using her Acapella several times a day, but really is not able to get much sputum. She only uses her rescue inhaler a few times a week. Still, he feels extremely short of breathwith almost any activity, sometimes even at rest. A 12 point review of systems was obtained and was negative except as noted above. The past medical, social and family history were reviewed and updated in the chart. Medications: has a current medication list which includes the following prescription(s): hydrocodone-acetaminophen, tamsulosin, ondansetron, zolpidem, ropinirole, fluticasone-salmeterol, levalbuterol, tiotropium, methylphenidate, methylphenidate, montelukast, sertraline, doxycycline, omeprazole, hydrocodone- acetaminophen, hydrocodone-acetaminophen, baclofen, fexofenadine, ipratropium- albuterol, mometasone, nortriptyline, pregabalin, sumatriptan, cyclosporine, hydroxypropyl methylcellulose, and docusate sodium. Objective:?? PHYSICAL EXAMINATION: A well-nourished femalein no respiratory distress. Vital signs: BP 144/80 Pulse 89 Temp(Src) 37.4 ??C (99.3 ??F) (Tympanic) Resp 14 Ht 162.4 cm (63.94) Wt 91.4 kg (201 lb 8 oz) BMI 34.66 kg/m2 SpO2 97% LMP 01/11/1987 HEENT exam: Normocephalic, atraumatic. Pupils are equally round and reactive to light. Neck is supple without adenopathy or thyromegaly. The pharynx is clear, without evidence of thrush. Nares without erythema or mucous. Lungs exam: decreased air movement throughout, but no wheeze Cardiovascular exam: Regular rate and rhythm without murmurs, rubs, or gallops. Abdomen exam: Soft, non-tender. Extremities exam: No clubbing or edema. Neuro: Alert and oriented x 4 , normal mood and affect, moves all extremities well. Data:?? Pulmonary function studies: Pulmonary function studies, ordered and reviewed by me, show: FVC of 1.86 liters, 54% of predicted FEV1 of 1.4 liters, 51 % of predicted FEV1/FVC ratio 94% Consistent with weakness, restriction or poor effort. Near significant BD response. Compared to testing on 09/28/12, there has been a decline in FVC and FEV1. Impression and Plan:?? In summary, this is a 52-year-old woman with CT findings of severe emphysema, with a reactive airway component, and significant ongoing dyspnea. It really is not clear why her PFTs are restrictive in nature, though her weight may be playing a role. She is on Advair and Spiriva, with as needed short-acting bronchodilators. In spite of this, she has had several significant exacerbations, though seems to be recovering reasonably well after the recent steroid course. I am concerned that she has significant ongoing smoke exposure, I still wonder whether she is smoking herself though she denies this. Given her significant symptoms, it would be reasonable to add Daliresp, which may both provide some additional bronchodilatation and symptomatic relief, as well as reduce thefrequency of exacerbations. In addition, we will obtain overnight oximetry from [facility], to evaluate whether she would benefit from nocturnal oxygen. We will plan to see the patient back in 6 weeks and have encouraged them to call us sooner if any issues arise. ?? Jeanette Virk MD Pulmonary Attending ? cc: ?Jean Munoz MD Please note: this documentation was created with the use of voice recognition software, and may contain rare shopfitter errors. * Jailene Martinez - 06/21/2013 1145 EDT Testing was performed and recorded in [employer]. See complete report in scanned documents. documented in this encounter Plan of Treatment Upcoming Encounters Date Type Department Care Team (Late st Contact Info) Description 06/29/2024 14:15 EDT Office Visit [facility] [address] [place], [place] [phone] Jean Munoz MD [address] [place] [address] Scheduled Referrals Name Type Priority Associated Diagnoses Orde r Schedule AMB CONSULT PULMONARY REHAB Outpatient Referral Routine COPD (chronic obstructive pulmonary disease) ([facility]) ([facility]) Physical deconditioning Ordered: 06/21/2013 documented as of this encounter Procedures Procedure Name Priority Date/Time Associated Diagnosis Comments PULMONARY FUNCTION REPORT - SCANNED 06/27/2013 5:04 EDT documented in this encounter Results * PULMONARY FUNCTION REPORT - SCANNED (06/27/2013 5:04 EDT) 06/27/2013 5:04 EDT Scan 2 Freight Car Repairer PROCEDURE/MINOR GUUR GICAL ORDERABLES documented in this encounter Visit Diagnoses Diagnosis COPD (chronic obstructive pulmonary disease) ([facility])- Primary Chronic airway obstruction, not elsewhere classified SOB (shortness of breath) Shortness of breath Asthma Unspecified asthma Physical deconditioning Debility, unspecified Screening for osteoporosis- Primary Special screening [...] Action Action Date Dose Rate Site albuterol (VENTOLIN HFA) inhaler 4 Puff 4 Puff, inhalation, NOW X1, 1 dose, On Wed06/21/13 at 1215, Routine Given 06/21/2013 11:50 EDT 4 Puffs documented in this encounter Orders Medications Ordered That Victor Manuel ht Not Have Been Administered Count Last Ordered Date First Ordered Date albuterol (VENTOLIN HFA) inhaler 4 Puff 1 1 Equipment Count Last Ordered Date First Orde red Date ACAPELLA DEVICE 1 06/21/2013 documented in this encounter Care Teams Faith Doctor Relationship Specialty Start Date End Date Jean Munoz MD [address] [place] [phone] PCP - General 12/31/08 Manny Rizzo MD [address] [place] [address] 04/20/10 documented as of this encounter
--- OUTSIDE RECORDS SUMMARY | 2024-06-10 07:27 | XMS_ITS | Encounter Summary ---
Author Organization [facility] Address [address] [place] [address] Care Team Providers Care Intern Architect Name Role Phone Jean Munoz MD Primary Care Provider Manny Rizzo MD Unavailable Reason for Visit * Reason Onset Date Comments Appointment Related 09/14/2013 Encounter Details Date Type Department Care Team (Late st Contact Info) Description 09/14/[address] [facility] [address] [place] [address] Jean Munoz MD [address] [place] [phone] Appointment Related Social History Tobacco Use [...] Telephone Encounter - Jean Munoz MD - 09/14/2013 1142 EST Last Rx 08/24, end date 09/21/13 Please schedule OV on 09/21, can be 15 min, thanks * Telephone Encounter - Kavita Mann - 09/14/2013 1106 EST Reason for Call: Appointment Related Summary/Symptoms: Patient is unable to make her appt today. Her rides car will not start. Next available is end october. She says she needs a sooner appt.in order to get her meds refilled. Onset and Duration? Appointment Offered? Yes- needs sooner appt. Kavita Mann 09/14/2013 11:07 documented in this encounter Plan of Treatment Upcoming Encounters Date Type Department Care Team (Late st Contact Info) Description 06/29/2024 14:15 EDT Office Visit [facility] [address] [place], [place] [phone] Jean Munoz MD [address] [place] [phone] documented as of this encounter Visit Diagnoses Not on filedocumented in this encounter Care Teams Intern Architect Relationship Specialty Start Date End Date Jean Munoz MD [address] [place] [address] PCP - General 12/31/08 Manny Rizzo MD [address] [place] [phone] 04/20/10 documented as of this encounter
--- OUTSIDE RECORDS SUMMARY | 2024-06-10 07:27 | XMS_ITS | Encounter Summary ---
Author Organization [facility] Address [address] [place] [address] Care Team Providers Care Agricultural Technician Name Role Phone Jean Munoz MD Primary Care Provider Manny Rizzo MD Unavailable Reason for Referral * Consult (Routine/Next Available) - Specialty Report Received Specialty Diagnoses / Procedures Referred By Alex weldon Referred To Contact General Surgery Diagnoses LUQ pain Jean Munoz MD [address] [place] [phone] Referral ID Status Reason Start Date Expiration Date Visits Requested Visits Authorized [id number] Specialty Report Received Specialty Services Required 3 1 1 Question Answer Reason for Request: recurrent LUQ pain, US normal, als has IBS, fibromyalgia Reason for Visit * Reason Comments COPD Exacerbation asthma. follow up fr om 06/13/13. last UD6 06/08/12, UD6 and opiate confirmation pended for visit today. Medications Refill hydrocodone, lyrica, and imitrex refills pended and set to print. patient would like prescriptions printed so she can bring them to her new pharm, Immunizations flu vaccine ok per p atient. order pended. Encounter Details Date Type Department Care Team (Late Contact Info) Description 06/29/2013 11:00 EDT Office Visit [facility] [address] [place] [address] Jean Munoz MD [address] [place] [address] COPD (chronic obstructive pulmonary disease) ([facility] ([facility]) (Primary Dx); Asthma; Left knee pain; Chronic back pain; Migraine; Need for influenza vaccination; Hesitancy; LUQ pain Discharge Disposition: Auto Discharge Social History [...] Sign Reading Time Taken Comments Blood Pressure 116/70 06/29/2013 1108 EDT Pulse 92 06/29/2013 1108 EDT Temperature - - Respiratory Rate 20 06/29/2013 1108 EDT Oxygen Saturation - - Inhaled Oxygen Concentration - - Weight 91.2 kg (201 lb) 06/29/2013 1108 EDT Height - - Body Mass Index 34.57 06/21/2013 1126 EDT documented in this encounter Functional Status Cognitive Status Response Date of Assessm ent Because of a physical, menta l, or emotional condition, do you have serious difficulty concentrating, remembering, or making decisions? (5 years old or older) Yes 02/26/2013 documented as of this encounter Discharge Diagnoses Diagnosis 496. CHRONIC AIRWAY OBSTRUCTION NEC[ICD-9-CM] 493.90 ASTHMA, UNSPECIFIED[ICD-9-CM] 719.46 JOINT PAIN-L/LEG[ICD-9-CM] 724.5 BACKACHE NOS[ICD-9-CM] 346.90 MIGRAINE NOS W/O MENTN INTRACTABLE W/O MENTION OF STATUS MIGRAINOSUS[ICD-9-CM] 788.64 URINARY HESITANCY[ICD-9-CM] 789.02 ABDOMINAL PAIN LUQ[ICD-9-CM] V04.81 NEED FOR PROPHYLACTIC VACCINATION AND INOCULATION, INFLUENZA[ICD-9-CM] documented in this encounter Ordered Prescriptions Prescription Sig Dispensed Refills Start Date End Da te HYDROcodone-acetaminophe n (LORTAB) 5-500 mg tabletIndications:Left knee pain Take 1 Tab by mouth every 6 hours as needed for Pain for 28 days. 112 Tab 0 08/24/2013 09/21/2013 HYDROcodone-acetaminophe n (LORTAB) 5-500 mg tabletIndications:Left knee pain Take 1 Tab by mouth every 6 hours as needed for Pain for 28 days. 112 Tab 0 07/27/2013 09/21/2013 HYDROcodone-acetaminophe n (LORTAB) 5-500 mg tabletIndications:Left knee pain Take 1 Tab by mouth every 6 hours as needed for Pain for 28 days. 112 Tab 0 06/29/2013 09/21/2013 sumatriptan (IMITREX) 50 mg tabletIndications:Migrai ne Take 1 Tab by mouth once as needed for Migraine for 1 dose. 9 Each 2 06/29/2013 11/13/2013 pregabalin (LYRICA) 150 mg capsuleIndications:Chron ic back pain Take 1 Cap by mouth 3 times daily. 270 Each 1 06/29/2013 12/13/2013 documented in this encounter Discharge Disposition Disposition Code Departure Means Destination Auto Discharge documented in this encounter Progress Notes * Jean Munoz MD - 06/29/2013 1535 EDT Subjective: Patient ID: Liset Viera is an 52 y.o. female. Chief Complaint Patient presents with ??? COPD Exacerbation asthma. follow up from 06/13/13. last UD6 06/08/12, UD6 and opiate confirmation pended for visit today. ??? Medications Refill hydrocodone, lyrica, and imitrex refills pended and set to print. patient would like prescriptions printed so she can bring them to her new pharm, ??? Immunizations flu vaccine ok per patient. order pended. HPI Asthma Breathing not too bad today per patient Started new med, needed PA Overnight O2 test pending Other inhalers no change Reviewed recent Pulmonary eval Left knee pain Saw Dr Glynn, had injection, will call for F/U No change per patient Still taking medicaiton LUQ pain Still has LUQ pain, worse with bend over, something moving, has US normal recently Has Fhx of intestines flop Patient Active Problem List Diagnosis ??? Severe [...] Pneumonia ??? COPD (chronic obstructive pulmonary disease) Past Medical History Diagnosis Date ??? UTI [...] of right ankle 03/30/2010 ??? Pneumonia 03/01/2013 Current Outpatient Prescriptions on File Prior to Visit Medication Status Sig Dispense Refill ??? baclofen [...] 2 times daily. 2 Inhaler 0 ??? Hydrocodone-Acetaminophen 5-500 mg capsule Active [...] by mouth daily. 180 Tab 2 ??? tamsulosin (FLOMAX) 0.4 mg [...] Smokeless tobacco: Never Used ??? Alcohol Use: Yes rarely ROS - See HPI Objective: BP 116/70 Pulse 92 Resp 20 Wt 91.173 kg (201 lb) BMI 34.57 kg/m2 LMP 01/11/1987 Physical Exam deferred Assessment: Plan: Liset was seen today for copd exacerbation, medications refill and immunizations. Diagnoses and associated orders for this visit: COPD (chronic obstructive pulmonary disease) Asthma F/U per Pulmonary Left knee pain - HYDROcodone-acetaminophen (LORTAB) 5-500 [...] as needed for Pain for 28 days. Chronic back pain - pregabalin (LYRICA) 150 mg capsule; Take 1 Cap by mouth 3 times daily. Migraine - sumatriptan (IMITREX) 50 mg tablet; Take 1 Tab by mouth once as needed for Migraine for 1 dose. Need for influenza vaccination - Influenza vaccine greater than or equal to 3yo split preservative free IM Hesitancy F/U Urology Reeurrent LUQ pain Prior US normal Concerned about Fhx bowel problem, recommend surgery consult for further eval [facility] Patient Education Topic: as above Method: Verbal Taught to: Patient Barriers: None Outcomes: Verbalized understanding Return in 3 months (on 09/21/2013) for SERA chronic pain, asthma. * Yadira Mccauley RN - 06/29/2013 1155 EDT Influenza vaccine administered. Tolerated administration well. Patient Education Topic: flu vaccine Method: handout Taught to: Patient Barriers: None Outcomes: independent and verbalized understanding Signature:Yadira Guaman RN I was supervised by Dr. Munoz who was present and immediately available in the office suite. Yadira Guaman RN 06/29/2013 11:56 documented in this encounter Miscellaneous Notes * Assessment & Plan Note - Jean Munoz MD - 06/29/2013 1127 EDT Associated Problem(s): Left upper quadrant pain (Resolved 03/07/2014) Still has LUQ pain, worse with bend over, something moving, has US normal recently Has Fhx of intestines flop * Assessment & Plan Note - Jean Munoz MD - 06/29/2013 1124 EDT Associated Problem(s): Left knee pain Saw Dr Glynn, had injection, will call for F/U No change per patient Still taking medicaiton * Assessment & Plan Note - Jean Munoz MD - 06/29/2013 1123 EDT Associated Problem(s): Asthma (Resolved 03/03/2017) Breathing not too bad today per patient Started new med, needed PA Overnight O2 test pending Other inhalers no change Reviewed recent Pulmonary eval documented in this encounter Plan of Treatment Upcoming Encounters Date Type Department Care Team (Late st Contact Info) Description 06/29/2024 14:15 EDT Office Visit [facility] [address] [place] [address] Jean Munoz MD [address] [place] [phone] Scheduled Referrals Name Type Priority Associated Diagnoses Orde r Schedule AMB CONSULT GENERAL SURGERY Outpatient Referral Routine LUQ pain Ordered: 06/29/2013 documented as of this encounter Visit Diagnoses Diagnosis COPD (chronic obstructive pulmonary disease) ([facility])- Primary Chronic airway obstruction, not elsewhere classified Asthma Unspecified asthma Left knee pain Pain in joint, lower leg Chronic back pain Backache, unspecified Migraine Migraine, unspecified, without mention of intractable migraine without mention of status migrainosus Need for influenza vaccination Need for prophylactic vaccination and inoculation against influenza Hesitancy Urinary hesitancy LUQ pain Abdominal pain, left upper quadrant Screening for osteoporosis- Primary [...] End Da te pregabalin (LYRICA) 150 mg capsuleIndications:Interventional Neuroradiologist majo back pain Take 1 Cap by mouth 3 times daily. Reorder 03/02/2013 06/29/2013 sumatriptan (IMITREX) 50 mg tabletIndications:Migra ine Take 1 Tab by mouth once as needed for Migraine for 1 dose. Reorder 02/08/2013 06/29/2013 HYDROcodone-acetaminoph en (LORTAB) 5-500 mg tabletIndications:Left knee pain Take 1-2 Tabs by mouth every 6 hours as needed for Pain for 28 days. Reorder 05/08/2013 06/29/2013 HYDROcodone-acetaminoph en (LORTAB) 5-500 mg tabletIndications:Left knee pain Take 1 Tab by mouth every 6 hours as needed for Pain for 28 days. Reorder 04/10/2013 06/29/2013 documented as of this encounter Orders Immunization/Injection Count Last Ordered Date First Ordered Date INFLUENZA VACCINE =>3YO SPLI T PRESERVATIVE FREE IM 1 06/29/2013 documented in this encounter Care Teams Agricultural Technician Relationship Specialty Start Date End Date Jean Munoz MD [address] [place] [phone] PCP - General 12/31/08 Manny Rizzo MD [address] [place] [phone] 04/20/10 documented as of this encounter
--- OUTSIDE RECORDS SUMMARY | 2024-06-10 07:27 | XMS_ITS | Encounter Summary ---
Author Organization [facility] Address [address] [place] [address] Care Team Providers Care Business Intelligence Reporting Analyst Name Role Phone Jean Munoz MD Primary Care Provider Manny Rizzo MD Unavailable Reason for Visit * Reason Onset Date Comments Medications Refill 09/25/2013 Encounter Details Date Type Department Care Team (Late st Contact Info) Description 09/25/2013 Telephone [facility] - [phone] Tiana Bacon [address] [place] [phone] Medications Refill Social History Tobacco Use [...] Tabs by mouth daily. 60 Tab 0 09/27/2013 10/23/2013 methylphenidate (RITALIN;METHYLIN) 10 mg tablet Take one tab in the afternoon for narcolepsy 30 Tab 0 09/27/2013 10/23/2013 documented in this encounter Miscellaneous Notes * Telephone Encounter - Corrina Ac RN - 09/25/2013 1559 EST Called pt and let her know her ritalin prescriptions are ready [facility] * Telephone Encounter - Leann Domingo - 09/25/2013 1345 EST Patient needs a refill for Ritalin 20 mg two in the morning and Ritalin 10 mg one in the afternoon.Patient would like to pick this up Wednesday this week. documented in this encounter Plan of Treatment Upcoming Encounters Date Type Department Care Team (Late st Contact Info) Description 06/29/2024 14:15 EDT Office Visit [facility] [place] [address] [place] [address] Jean Munoz MD [address] [place] [phone] documented as of this encounter Visit Diagnoses Not on filedocumented in this encounter Discontinued Medications Medication Sig Discontinue Reason Start Date End Da te methylphenidate (RITALIN;METHYLIN) 10 mg tablet Take one tab in the afternoon for narcolepsy Reorder 08/30/2013 09/25/2013 methylphenidate (RITALIN;METHYLIN) 20 mg tablet Take 2 Tabs by mouth daily. Reorder 08/30/2013 09/25/2013 documented as of this encounter Care Teams Business Intelligence Reporting Analyst Relationship Specialty Start Date End Date Jean Munoz MD [address] [place] [phone] PCP - General 12/31/08 Manny Rizzo MD [address] [place] [phone] 04/20/10 documented as of this encounter
--- OUTSIDE RECORDS SUMMARY | 2024-06-10 07:27 | XMS_ITS | Encounter Summary ---
Author Organization [facility] Address [address] [place] [address] Care Team Providers Care Wire Mesh Gate Assembler Name Role Phone Jean Munoz MD Primary Care Provider Manny Rizzo MD Unavailable Reason for Visit * Reason Comments Follow-up Urodynamics for urin sheila hesitancy Encounter Details Date Type Department Care Team (Late st Contact Info) Description 06/14/2013 10:30 EDT Office Visit [facility] Medicine [facility] Re[facility]ive Surgery - Medical Office [facility] [address] [place] [address] Alban Powers MD [address] [place] [address] Urinary hesitancy (Primary Dx); Straining to void Social History [...] an hour after supper) 30 Cap 5 06/14/2013 08/14/2013 documented in this encounter Progress Notes * Alban Powers - 06/14/2013 1122 EDT Subjective: Patient ID: Liset Viera is an 52 y.o. female. Liset Viera is seen in the office today for urodynamic study. HPI Comments: Patient comes in today for urodynamics Patient Active Problem List Diagnoses ??? Severe major depression without psychotic features [...] Irritable bowel syndrome (IBS) ??? Rosacea ??? Prepatellar bursitis of left knee ??? Left knee pain ??? Narcolepsy without [...] of right ankle 03/30/2010 ??? Pneumonia 03/01/2013 Past Surgical History Procedure Date ??? Salpingectomy 1982 ectopic ??? Hysterectomy, vaginal menorrhagia ??? Shoulder arthroscopy 10/15 left, with acromioplasty ??? Gastric fundoplication 03/02/07 [place] ??? Cervical spine surgery 12/31/08 discectomy, fusion C4-7 Dr Dewitt ??? Colonoscopy 07/29/09 repeat 10 years ??? Ankle fracture surgery 04/01/10 left ankle [facility] ??? Cyst incision and drainage 09/17/10 left cheek ??? Fine needle aspiration 09/19/10 left cheek ??? Cystoscopy 02/14/13 Family History Problem Relation Age of Onset ??? Cancer Father esophageal ??? Heart Attack Father ??? Cataract Father ??? Cancer Paternal Aunt breast ??? Migraines Maternal Aunt ??? Stroke Maternal Grandmother ??? Heart Attack Maternal Grandmother ??? Heart Disease Maternal Grandmother ??? Cataract Maternal Grandmother ??? Cancer Paternal Grandmother leukemia ??? Cataract Mother ??? Cancer Mother lung and bone ??? Cataract Maternal Grandfather ??? Glaucoma Neg Hx ??? Macular Degen Neg Hx ??? Blindness Neg Hx Social History Substance Use Topics ??? Smoking status: Passive Smoker -- 2.0 packs/day for 35 years Types: Cigarettes Last Attempt to Quit: 10/14/2010 ??? Smokeless tobacco: Never Used ??? Alcohol Use: Yes rarely Current Outpatient Prescriptions on File Prior to Visit Medication Sig Dispense Refill ??? ondansetron (ZOFRAN) 4 mg tablet Take 1 Tab by mouth daily as needed for Nausea. 60 Tab 0 ??? zolpidem (AMBIEN) 5 mg tablet Take 1 Tab by mouth at bedtime as needed for Sleep. 30 Each 2 ??? rOPINIRole (REQUIP) 2 mg tablet TAKE ONE TABLET BY MOUTH AT BEDTIME 90 Tab 2 ??? fluticasone-salmeterol (ADVAIR HFA) 230-21 mcg/actuation inhaler Inhale 2 Puffs as directed 2 times daily. 2 Inhaler 0 ??? levalbuterol (XOPENEX HFA) 45 mcg/actuation inhaler Inhale 1-2 Puffs as directed every 4 hours as needed for Wheezing. 3 Inhaler 2 ??? tiotropium (SPIRIVA WITH HANDIHALER) 18 mcg inhalation capsule Inhale 1 Cap as directed daily. 90 Cap 2 ??? methylphenidate (RITALIN;METHYLIN) 10 mg tablet Take one tab in the afternoon for narcolepsy 30Tab 0 ??? methylphenidate (RITALIN;METHYLIN) 20 mg tablet Take 2 Tabs by mouth daily. 60 Tab 0 ??? montelukast (SINGULAIR) 10 mg tablet Take 1 Tab by mouth daily. 90 Each 2 ??? sertraline (ZOLOFT) 100 mg tablet Take 2 Tabs by mouth daily. 180 Tab 2 ??? doxycycline (VIBRA-TABS) 100 mg tablet Take 1 Tab by mouth daily. 90 Tab 2 ??? omeprazole (PRILOSEC) 40 mg capsule Take 1 Cap by mouth daily. 180 Cap 2 ??? HYDROcodone-acetaminophen (LORTAB) 5-500 mg tablet Take 1-2 Tabs by mouth every 6 hours as needed for Pain for 28 days. 112 Tab 0 ??? HYDROcodone-acetaminophen (LORTAB) 5-500 mg tablet Take 1 Tab by mouth every 6 hours as needed for Pain for 28 days. 112 Tab 0 ??? baclofen (LIORESAL) 10 mg tablet Take 1 Tab by mouth 3 times daily as needed. 180 Tab 0 ??? fexofenadine (JUDITH) 180 mg tablet Take 1 Tab by mouth daily. 60 Each 0 ??? ipratropium-albuterol (DUONEB) 0.5 mg-3 mg(2.5 mg base)/3 mL nebulizer solution Take 3 mL by nebulization every 6 hours as needed for Wheezing. 2 Box 0 ??? mometasone (NASONEX) 50 mcg/actuation nasal spray 2 Sprays by nasal route daily. 2 Inhaler 0 ??? nortriptyline (PAMELOR) 75 mg capsule Take 1 Cap by mouth daily. 60 Each 0 ??? pregabalin (LYRICA) 150 mg capsule Take 1 Cap by mouth 3 times daily. 180 Each 0 ??? sumatriptan (IMITREX) 50 mg tablet Take 1 Tab by mouth once as needed for Migraine for 1 dose. 9 Each 2 ??? cyclosporine (RESTASIS) 0.05 % ophthalmic emulsion Place 1 Drop into both eyes 4 times daily. 2Tray 11 ??? hydroxypropyl methylcellulose (ISOPTO TEARS) 0.5 % ophthalmic solution Place 1 Drop into both eyes 5 times daily. ??? docusate sodium (COLACE) 100 mg capsule Take 1 Cap by mouth 2 times daily as needed for Constipation. Allergies Allergen Reactions ??? Toradol (Ketorolac Tromethamine) Hives ??? Motrin (Ibuprofen) Itching ROS - See HPI Objective: LMP 01/11/1987 Physical Exam No visits with results within 1 Day(s) from this visit. Latest known visit with results is: Admission on 02/26/2013, Discharged on 03/01/2013 Component Date Value Range Status ??? Sodium 02/26/2013 146* 136 - 145 mEq/L Final ??? Potassium 02/26/2013 3.9 3.5 - 5.0 mEq/L Final ??? Chloride 02/26/2013 110 96 - 110 mEq/L Final ??? CO2 02/26/2013 27 24 - 32 mEq/L Final ??? BUN 02/26/2013 9* 10 - 26 mg/dl Final ??? Creatinine 02/26/2013 0.49* 0.52 - 1.04 mg/dl Final ? ? GFR, Calculated 02/26/2013 >60 >60 ml/min/1.73m2 Final ??? Tests to be added 02/26/2013 BNP Final ??? Number for problems 02/26/2013 01583 (ED) Final ? ? NT Pro BNP 02/26/2013 696* <300 pg/ml Final Comment: Reference Range: NT-proBNP values less than [...] 89% and 72% for acute congestive failure. ??? WBC 02/26/2013 12.92* 4.0 - 12.4 K/cmm Final ??? RBC 02/26/2013 3.94 3.86 - 5.04 M/cmm Final ??? Hemoglobin 02/26/2013 12.1 11.6 - 15.2 gm/dl Final ??? HCT 02/26/2013 36.3 34.9 - 44.4 % Final ??? MCV 02/26/2013 92 81 - 98 fl Final ??? MCH 02/26/2013 30.6 26.7 - 33.3 pg Final ??? MCHC 02/26/2013 33.2 32.1 - 35.9 gm/dl Final ??? PLT 02/26/2013 295 141 - 320 K/cmm Final ??? RDW-CV 02/26/2013 14.5 11.7 - 14.6 % Final ??? Neutrophils 02/26/2013 84.0* 45.5 - 79.7 % Final ??? Lymphocytes 02/26/2013 13.0* 15.0 - 46.8 % Final ??? Monocytes 02/26/2013 3.0 1.8 - 12.0 % Final ??? ABS Neutrophils 02/26/2013 10.85* 2.20 - 8.85 K/cmm Final ??? ABS Lymphs 02/26/2013 1.68 1.09 - 3.30 K/cmm Final ??? ABS Monocytes 02/26/2013 0.39 0.1 - 0.8 K/cmm Final ??? RBC Morphology 02/26/2013 Normal Final ??? Type of Diff: 02/26/2013 Manual Final ??? Specimen Description 02/26/2013 Urine Final ??? Result 02/26/2013 No Legionella pneumophila serogroup 1 antigen detected. Final ??? Report Status 02/26/2013 02/26/2013 Final Final ??? Specimen Description 02/26/2013 Urine Final ??? Result 02/26/2013 No Strep pneumoniae antigen detected. Final ??? Report Status 02/26/2013 02/26/2013 Final Final ??? Glucose, Screening 02/27/2013 160* 70 - 100 mg/dl Final ??? Sodium 02/27/2013 144 136 - 145 mEq/L Final ??? Potassium 02/27/2013 3.3* 3.5 - 5.0 mEq/L Final ??? Chloride 02/27/2013 108 96 - 110 mEq/L Final ??? CO2 02/27/2013 25 24 - 32 mEq/L Final ??? BUN 02/27/2013 7* 10 - 26 mg/dl Final ??? Creatinine 02/27/2013 0.47* 0.52 - 1.04 mg/dl Final ? ? GFR, Calculated 02/27/2013 >60 >60 ml/min/1.73m2 Final ??? WBC 02/27/2013 9.12 4.0 - 12.4 K/cmm Final ??? RBC 02/27/2013 3.48* 3.86 - 5.04 M/cmm Final ??? Hemoglobin 02/27/2013 10.9* 11.6 - 15.2 gm/dl Final ??? HCT 02/27/2013 32.1* 34.9 - 44.4 % Final ??? MCV 02/27/2013 92 81 - 98 fl Final ??? MCH 02/27/2013 31.2 26.7 - 33.3 pg Final ??? MCHC 02/27/2013 33.9 32.1 - 35.9 gm/dl Final ??? PLT 02/27/2013 269 141 - 320 K/cmm Final ??? RDW-CV 02/27/2013 14.3 11.7 - 14.6 % Final ??? Neutrophils 02/27/2013 80.0* 45.5 - 79.7 % Final ??? Lymphocytes 02/27/2013 15.0 15.0 - 46.8 % Final ??? Monocytes 02/27/2013 5.0 1.8 - 12.0 % Final ??? ABS Neutrophils 02/27/2013 7.29 2.20 - 8.85 K/cmm Final ??? ABS Lymphs 02/27/2013 1.37 1.09 - 3.30 K/cmm Final ??? ABS Monocytes 02/27/2013 0.46 0.1 - 0.8 K/cmm Final ??? RBC Morphology 02/27/2013 1+ Final Comment: Poikilocytosis 1+ Ovalocytes 1+ Target cells 1+ Polychromasia 1+ Anisocytosis ??? WBC Morphology 02/27/2013 1+ Final Vacuolization ??? Type of Diff: 02/27/2013 Manual Final ??? Sodium 02/28/2013 145 136 - 145 mEq/L Final ??? Potassium 02/28/2013 3.2* 3.5 - 5.0 mEq/L Final ??? Chloride 02/28/2013 108 96 - 110 mEq/L Final ??? CO2 02/28/2013 28 24 - 32 mEq/L Final ??? BUN 02/28/2013 8* 10 - 26 mg/dl Final ??? Creatinine 02/28/2013 0.50* 0.52 - 1.04 mg/dl Final ? ? GFR, Calculated 02/28/2013 >60 >60 ml/min/1.73m2 Final ??? WBC 02/28/2013 10.26 4.0 - 12.4 K/cmm Final ??? RBC 02/28/2013 3.46* 3.86 - 5.04 M/cmm Final ??? Hemoglobin 02/28/2013 11.0* 11.6 - 15.2 gm/dl Final ??? HCT 02/28/2013 31.7* 34.9 - 44.4 % Final ??? MCV 02/28/2013 91 81 - 98 fl Final ??? MCH 02/28/2013 31.9 26.7 - 33.3 pg Final ??? MCHC 02/28/2013 34.8 32.1 - 35.9 gm/dl Final ??? PLT 02/28/2013 311 141 - 320 K/cmm Final ??? RDW-CV 02/28/2013 14.0 11.7 - 14.6 % Final ??? Neutrophils 02/28/2013 71.4 45.5 - 79.7 % Final ??? Lymphocytes 02/28/2013 21.2 15.0 - 46.8 % Final ??? Monocytes 02/28/2013 6.3 1.8 - 12.0 % Final ??? Eosinophils 02/28/2013 0.9 0.6 - 6.9 % Final ??? Basophils 02/28/2013 0.2 0.2 - 1.4 % Final ??? ABS Neutrophils 02/28/2013 7.32 2.20 - 8.85 K/cmm Final ??? ABS Lymphs 02/28/2013 2.18 1.09 - 3.30 K/cmm Final ??? ABS Monocytes 02/28/2013 0.65 0.1 - 0.8 K/cmm Final ??? ABS Eosinophils 02/28/2013 0.09 0.03 - 0.61 K/cmm Final ??? ABS Basophils 02/28/2013 0.02 0.01 - 0.11 K/cmm Final ??? Type of Diff: 02/28/2013 Automated Final ??? Sodium 03/01/2013 144 136 - 145 mEq/L Final ??? Potassium 03/01/2013 3.5 3.5 - 5.0 mEq/L Final ??? Chloride 03/01/2013 106 96 - 110 mEq/L Final ??? CO2 03/01/2013 30 24 - 32 mEq/L Final ??? BUN 03/01/2013 10 10 - 26 mg/dl Final ??? Creatinine 03/01/2013 0.61 0.52 - 1.04 mg/dl Final ? ? GFR, Calculated 03/01/2013 >60 >60 ml/min/1.73m2 Final ??? WBC 03/01/2013 8.62 4.0 - 12.4 K/cmm Final ??? RBC 03/01/2013 3.55* 3.86 - 5.04 M/cmm Final ??? Hemoglobin 03/01/2013 11.3* 11.6 - 15.2 gm/dl Final ??? HCT 03/01/2013 32.9* 34.9 - 44.4 % Final ??? MCV 03/01/2013 93 81 - 98 fl Final ??? MCH 03/01/2013 31.7 26.7 - 33.3 pg Final ??? MCHC 03/01/2013 34.2 32.1 - 35.9 gm/dl Final ??? PLT 03/01/2013 322* 141 - 320 K/cmm Final ??? RDW-CV 03/01/2013 14.3 11.7 - 14.6 % Final ??? Neutrophils 03/01/2013 66.8 45.5 - 79.7 % Final ??? Lymphocytes 03/01/2013 25.0 15.0 - 46.8 % Final ??? Monocytes 03/01/2013 7.1 1.8 - 12.0 % Final ??? Eosinophils 03/01/2013 0.8 0.6 - 6.9 % Final ??? Basophils 03/01/2013 0.3 0.2 - 1.4 % Final ??? ABS Neutrophils 03/01/2013 5.76 2.20 - 8.85 K/cmm Final ??? ABS Lymphs 03/01/2013 2.16 1.09 - 3.30 K/cmm Final ??? ABS Monocytes 03/01/2013 0.61 0.1 - 0.8 K/cmm Final ??? ABS Eosinophils 03/01/2013 0.07 0.03 - 0.61 K/cmm Final ??? ABS Basophils 03/01/2013 0.02 0.01 - 0.11 K/cmm Final ??? Type of Diff: 03/01/2013 Automated Final PSA: No results found for this basename: PSA BMP: Lab Results Component Value Date NA 144 03/01/2013 K 3.5 03/01/2013 CL 106 03/01/2013 CO2 30 03/01/2013 BUN 10 03/01/2013 CREATININE 0.61 03/01/2013 CALCIUM 8.3* 10/26/2012 CALCCA 8.9 10/26/2012 MG 2.3 10/26/2012 PHOS 3.0 10/26/2012 LABALBU 3.9 07/21/2011 Assessment / Plan: 1. Urinary hesitancy 2. Straining to void patient completed her urodynamic study (see dictated note) Alban Powers MD documented in this encounter Procedure Notes * Alban Powers - 06/14/2013 9504 EDT PROCEDURE REPORT SERVICE DATE: 06/14/2013 PROCEDURE: Urodynamic Study BLENDER LABORER: Alban Powers MD INDICATIONS: The patient is a 52-year-old female who is most bothered by hesitancy. She states thatit is getting worse. The problem is trying to get her urine to come out. She underwent a cystoscopyon 02/14/2013 which showed no abnormality of the bladder neck or urethral mucosa. There was slight bladder wall trabeculation. A bladder scan check for residual urine on 01/11/2013 showed that she voided 2 to 3 ounces and residual urine was 111 mL. NARRATIVE: The patient was taken to the urodynamic study procedure area and she was not able to perform a Uroflow. She was catheterized for 70 mL. Rectal and bladder pressure catheters were placed. Electromyelography (EMG) pads were applied to the skin of the perineum. Appropriate pressure transducer tubing was attached to the rectal catheter and the dual-lumen bladder catheter. The tubing to fill the bladder was attached to the filling arm of the bladder catheter. The storage phase of the urodynamic study was initiated by filling the bladder at 50 mL per minute. Bladder pressure remained stable and low as the bladder was filled. There was no involuntary detrusor contraction. She had a normal desire to void at 72 mL and a strong urge at 106 mL. At a volume of 203 mL, she was told to urinate to perform the pressure flow study. However, she was unable to start her stream. Therefore, the bladder was filled to a volume of 288 mL, which was felt to be her capacity. Again, she was instructed to void. She strained and struggled to start her stream. During periods of straining, there was activity of the external sphincter seen on EMG. When she was able to start her stream, the external sphincter relaxed, however. Of note, during bladder filling the external sphincter did show several spikes of increased activity on EMG. The pressure flow study was remarkable for a voided volume of 251mL with maximum flow of 10.8 mL per second and average flow 4.5 mL per second. Flow time was 55.4 seconds. The flow curve was elongated and flattened and undulating. The pressure at peak flow was 34.1 cm of water. The flow at peak pressure was 2.0 mL per second. The peak pressure generated was 64.2cm of water. Residual urine volume was 37 mL. SUMMARY: The patient has normal bladder compliance. She had intact sensation. Initially, at a filling volume of 203, she was not able to start her stream. Therefore, she was filled to 288 mL and withstraining she was eventually able to void. External sphincter activity was sporadic during the filling phase and was seen during the emptying phase with straining on EMG. She was able to relax the external sphincter to void. The appearance of the flow curve raises the question of obstruction, although the pressure flow data are equivocal. Bladder capacity was not reduced and residual urine volume was not elevated. IMPRESSION: If [...] have a trial of tamsulosin 0.4 mg daily.In addition, she will undergo a complete pelvic exam at her next office visit to evaluate for prolapse, which may contribute to urinary hesitancy. In this study, she required an increased amount of urine in her bladder to get her stream started. Unless otherwise noted, there were no complications, no blood loss, no cultures obtained, no specimens removed, and no drains retained. Alban Powers MD 12 32 PM / Alban Powers MD cn Confirmation: [id number] Dictation ID: [id number] cc: Jean Munoz MD documented in this encounter Plan of Treatment Upcoming Encounters Date Type Department Care Team (Late st Contact Info) Description 06/29/2024 14:15 EDT Office Visit [facility] [address] [place] [address] Jean Munoz MD [address] [place] [phone] documented as of this encounter Visit Diagnoses Diagnosis Urinary hesitancy- Primary Straining to void Straining on urination Screening [...] as needed for Pain for 28 days. Duplicate Therapy 06/05/2013 06/14/2013 documented as of this encounter Historical Medications * This list may reflect changes made after this encounter. Medication Sig Dispensed Refills Start Date End Date Hydrocodone-Acetaminophen 5-500 mg capsule Take by mouth every 6 hours as needed. 12/13/2013 added in this encounter Care Teams Wire Mesh Gate Assembler Relationship Specialty Start Date End Date Jean Munoz MD [address] [place] [phone] PCP - General 12/31/08 Manny Rizzo MD [address] [place] [phone] 04/20/10 documented as of this encounter
--- OUTSIDE RECORDS SUMMARY | 2024-06-10 07:27 | XMS_ITS | Encounter Summary ---
Author Organization [facility] Address [address] [place] [address] Care Team Providers Care Entertainment Lawyer Name Role Phone Jean Munoz MD Primary Care Provider Manny Rizzo MD Unavailable Reason for Visit * Reason Onset Date Comments Medications Refill 07/03/2013 Encounter Details Date Type Department Care Team (Late st Contact Info) Description 07/03/2013 Refill [facility] - [address] [id number] Tiana Bacon [address] [place] [phone] Medications Refill Social History Tobacco Use [...] Tabs by mouth daily. 60 Tab 0 07/03/2013 07/31/2013 methylphenidate (RITALIN;METHYLIN) 10 mg tablet Take one tab in the afternoon for narcolepsy 30 Tab 0 07/03/2013 07/31/2013 documented in this encounter Miscellaneous Notes * Telephone Encounter - Corrina Ac RN - 07/04/2013 0904 EDT Left message for pt to let know (ritalin) prescriptions ready for fruit or nut picker [facility]. * Telephone Encounter - Duy Booth - 07/03/2013 1415 EDT Calling to request refills of Ritalin to be picked up on Wednesday. documented in this encounter Plan of Treatment Upcoming Encounters Date Type Department Care Team (Late st Contact Info) Description 06/29/2024 14:15 EDT Office Visit [facility] [address] [place] [address] Jean Munoz MD [address] [place] [phone] documented as of this encounter Visit Diagnoses Not on filedocumented in this encounter Discontinued Medications Medication Sig Discontinue Reason Start Date End Da te methylphenidate (RITALIN;METHYLIN) 10 mg tablet Take one tab in the afternoon for narcolepsy Reorder 06/07/2013 07/03/2013 methylphenidate (RITALIN;METHYLIN) 20 mg tablet Take 2 Tabs by mouth daily. Reorder 06/07/2013 07/03/2013 documented as of this encounter Care Teams Entertainment Lawyer Relationship Specialty Start Date End Date Jean Munoz MD [address] [place] [phone] PCP - General 12/31/08 Manny Rizzo MD [address] [place] [phone] 04/20/10 documented as of this encounter
--- OUTSIDE RECORDS SUMMARY | 2024-06-10 07:27 | XMS_ITS | Encounter Summary ---
Author Organization [facility] Address [address] [place] [address] Care Team Providers Care Automatic Mounter Name Role Phone Jean Munoz MD Primary Care Provider Manny Rizzo MD Unavailable Encounter Details Date Type Department Care Team (Late st Contact Info) Description 06/22/2013 Documentation Visit [facility] Rehabilitation - [address] [phone] Margie Graham, RT [address] [place] [address] Social History Tobacco Use Types Packs/Day Years [...] as of this encounter Progress Notes * Margie Graham, RT - 06/22/2013 0942 EDT Liset Viera was referred to Pulmonary Rehabilitation by Dr. Weiner. Unfortunately, [place] Medicaid does not cover Pulmonary Rehabilitation and she would have to pay out of pocket for services. Referring MD informed of this. Aline Graham, SUPPLY CHAIN MANAGER/RPFT documented in this encounter Plan of Treatment Upcoming Encounters Date Type Department Care Team (Late st Contact Info) Description 06/29/2024 14:15 EDT Office Visit [facility] [address] [place], [place] [phone] Jean Munoz MD [address] [place] [phone] documented as of this encounter Visit Diagnoses Not on filedocumented in this encounter Care Teams Automatic Mounter Relationship Specialty Start Date End Date Jean Munoz MD [address] [place] [phone] PCP - General 12/31/08 Manny Rizzo MD [address] [place] [phone] 04/20/10 documented as of this encounter
--- OUTSIDE RECORDS SUMMARY | 2024-06-10 07:27 | XMS_ITS | Encounter Summary ---
Author Organization [facility] Address [address] [place] [address] Care Team Providers Care Carpet Cutter Name Role Phone Jean Munoz MD Primary Care Provider Manny Rizzo MD Unavailable Reason for Visit * Reason Onset Date Comments Eye Problem 10/16/2013 Saw PCP last wee k who thought it was pinkeye. Now getting worse vision. Encounter Details Date Type Department Care Team (Late st Contact Info) Description 10/16/2013 Telephone [facility] Ophthalmology - [address] [phone] Giovanni Rodriguez MD [address] [place] [address], [address] [place] [phone] Eye Problem (Saw PCP last week who thought it was pinkeye. Now getting worse vision. ) Social History Tobacco Use Types Packs/Day [...] encounter Miscellaneous Notes * Telephone Encounter - Yvonne Day, RN - 10/16/2013 2357 EST 15:02 I called and let Liset Viera know that Dr. Rodriguez would like her to stop using the tobramycin and that he would like to see her tomorrow or Wed. I offered the pt an appointment tomorrow (10/17/13) at 1:30. Pt accepts appointment and has no further questions. Shell will schedule the pt in the system. Per Dr. Rodriguez she should d/c the tobramycin and be seen tomorrow or Wed. Per Shell he has a 1:30 or 2pm tomorrow. Nature of problem? Pt states went to 's last Tues eyes, red, itchy, burning both eyes. Saw RADIATION ENGINEER whoprescribed tobramycin has been using it for about a week but it has not been working. Vision both eyes blurry, very, runny, sticky. Hx of dry eyes, ocular rosacea. Wears glasses vision still blurry. ATs several times a day. Onset and Duration? About 2 weeks Is this an injury? No Pain? Burn all the time, 03/22 Have you recently had eye surgery? No Are you having flashes/and or floaters? No Any sensitivity to light? Yes Any loss of vision/curtain/darkness/veil? No Any change in vision/double vision/blurred? Blurry both eyes Any redness? Both eyes Do you wear contact lenses? No Who is your usual eye doctor? Dr. Rodriguez Phone Number of Eye Doctor (if not FACP) Any other pertinent information? No Please remember that a physician must approve if you are telling the patient to wait for an appointment. Where are you now? Possible, has to find a ride If the MD needs to see you today, how long would it take you to get to our office? What is the best phone number for us to speak to you in the next two hours? [phone], can leave a message (VERIFY THE PHONE NUMBERS REGARDLESS OF WHAT IS IN THE SYSTEM.) documented in this encounter Plan of Treatment Upcoming Encounters Date Type Department Care Team (Late st Contact Info) Description 06/29/2024 14:15 EDT Office Visit [facility] [address] [place] [address] Jean Munoz MD [address] [place] [phone] documented as of this encounter Visit Diagnoses Not on filedocumented in this encounter Care Teams Carpet Cutter Relationship Specialty Start Date End Date Jean Munoz MD [address] [place] [phone] PCP - General 12/31/08 Manny Rizzo MD [address] [place] [phone] 04/20/10 documented as of this encounter
--- OUTSIDE RECORDS SUMMARY | 2024-06-10 07:27 | XMS_ITS | Encounter Summary ---
Author Organization [facility] Address [address] [place] [address] Care Team Providers Care Weblogic Administrator Name Role Phone Jean Munoz MD Primary Care Provider Manny Rizzo MD Unavailable Encounter Details Date Type Department Care Team (Latest Contact Info) Description 06/21/2013 12:57 EDT - 06/21/2013 23:59 EDT Hospital Encounter [address] [address] Jean Munoz MD [address] [place] [phone] Discharge Disposition: Auto Discharge Social History [...] Yes 02/26/2013 documented as of this encounter Medications at Time of Discharge Medication Sig Dispensed Refills Start Date End Date docusate sodium (COLACE) 100 mg capsule Take 1 Capsule by mouth 2 times daily as needed for Constipation. 09/24/2010 baclofen (LIORESAL) 10 mg tabletIndications:Low back pain Take 1 Tab by mouth 3 times daily as needed. 180 Tab 0 03/02/2013 12/13/2013 cyclosporine (RESTASIS) 0.05 % ophthalmic emulsion Place 1 Drop into both eyes 4 times daily. 2 Tray 11 07/05/2012 10/24/2013 doxycycline (VIBRA-TABS) 100 mg tabletIndications:Rosac ea Take 1 Tab by mouth daily. 90 Tab 2 04/10/2013 12/13/2013 fexofenadine (JUDITH) 180 mg tabletIndications:Seaso nal allergic rhinitis Take 1 Tab by mouth daily. 60 Each 0 03/02/2013 12/13/2013 fluticasone-salmeterol (ADVAIR HFA) 230-21 mcg/actuation inhalerIndications:Asth ma,COPD (chronic obstructive pulmonary disease) ([facility]) Inhale 2 Puffs as directed 2 times daily. 2 Inhaler 0 06/05/2013 08/16/2013 HYDROcodone-acetaminoph en (LORTAB) 5-500 mg tabletIndications:Left knee pain Take 1-2 Tabs by mouth every 6 hours as needed for Pain for 28 days. 112 Tab 0 05/08/2013 06/29/2013 HYDROcodone-acetaminoph en (LORTAB) 5-500 mg tabletIndications:Left knee pain Take 1 Tab by mouth every 6 hours as needed for Pain for 28 days. 112 Tab 0 04/10/2013 06/29/2013 Hydrocodone-Acetaminoph en 5-500 mg capsule Take by mouth every 6 hours as needed. 12/13/2013 hydroxypropyl methylcellulose (ISOPTO TEARS) 0.5 % ophthalmic solution Place 1 Drop into both eyes 5 times daily. 12/10/2010 10/06/2023 ipratropium-albuterol (DUONEB) 0.5 mg-3 mg(2.5 mg base)/3 mL nebulizer solutionIndications:Ast hma,COPD (chronic obstructive pulmonary disease) ([facility]) Take 3 mL by nebulization every 6 hours as needed for Wheezing. 2 Box 0 03/02/2013 02/16/2014 levalbuterol (XOPENEX HFA) 45 mcg/actuation inhalerIndications:Asth ma,COPD (chronic obstructive pulmonary disease) ([facility]) Inhale 1-2 Puffs as directed every 4 hours as needed for Wheezing. 3 Inhaler 2 06/05/2013 11/13/2013 methylphenidate (RITALIN;METHYLIN) 10 mg tablet Take one tab in the afternoon for narcolepsy 30 Tab 0 06/07/2013 07/03/2013 methylphenidate (RITALIN;METHYLIN) 20 mg tablet Take 2 Tabs by mouth daily. 60 Tab 0 06/07/2013 07/03/2013 mometasone (NASONEX) 50 mcg/actuation nasal sprayIndications:Season al allergic rhinitis 2 Sprays by nasal route daily. 2 Inhaler 0 03/02/2013 12/13/2013 montelukast (SINGULAIR) 10 mg tabletIndications:Asthm a Take 1 Tab by mouth daily. 90 Each 2 04/10/2013 12/13/2013 nortriptyline (PAMELOR) 75 mg capsuleIndications:Depr ession Take 1 Cap by mouth daily. 60 Each 0 03/02/2013 12/13/2013 omeprazole (PRILOSEC) 40 mg capsuleIndications:Benja roesophageal reflux disease Take 1 Cap by mouth daily. 180 Cap 2 04/10/2013 12/13/2013 ondansetron (ZOFRAN) 4 mg tabletIndications:Gastr oesophageal reflux disease Take 1 Tab by mouth daily as needed for Nausea. 60 Tab 0 06/13/2013 12/13/2013 pregabalin (LYRICA) 150 mg capsuleIndications:Recruitment Internship majo back pain Take 1 Cap by mouth 3 times daily. 180 Each 0 03/02/2013 06/29/2013 roflumilast (DALIRESP) 500 mcg tablet Take 1 Tab by mouth daily. 30 Tab 5 06/21/2013 02/10/2014 rOPINIRole (REQUIP) 2 mg tabletIndications:Restl ess legs syndrome TAKE ONE TABLET BY MOUTH AT BEDTIME 90 Tab 2 06/04/2013 09/21/2013 sertraline (ZOLOFT) 100 mg tabletIndications:Depre ssion Take 2 Tabs by mouth daily. 180 Tab 2 04/10/2013 12/13/2013 sumatriptan (IMITREX) 50 mg tabletIndications:Migra ine Take 1 Tab by mouth once as needed for Migraine for 1 dose. 9 Each 2 02/08/2013 06/29/2013 tamsulosin (FLOMAX) 0.4 mg capsule Take one capsule by mouth every day (take it half an hour after supper) 30 Cap 5 06/14/2013 08/14/2013 tiotropium (SPIRIVA WITH HANDIHALER) 18 mcg inhalation capsuleIndications:COPD (chronic obstructive pulmonary disease) ([facility]) Inhale 1 Cap as directed daily. 90 Cap 2 06/05/2013 12/13/2013 zolpidem (AMBIEN) 5 mg tabletIndications:Insom yesi Take 1 Tab by mouth at bedtime as needed for Sleep. 30 Each 2 06/13/2013 09/21/2013 documented as of this encounter Discharge Disposition Disposition Code Departure Means Destination Auto Discharge Home documented in this encounter Plan of Treatment Upcoming Encounters Date Type Department Care Team (Late st Contact Info) Description 06/29/2024 14:15 EDT Office Visit [facility] [address] [place] [address] Jean Munoz MD [address] [place] [phone] documented as of this encounter Visit Diagnoses Not on filedocumented in this encounter Care Teams Weblogic Administrator Relationship Specialty Start Date End Date Jean Munoz MD [address] [place] [phone] PCP - General 12/31/08 Manny Rizzo MD [address] [place] [address] 04/20/10 documented as of this encounter
--- OUTSIDE RECORDS SUMMARY | 2024-06-10 07:27 | XMS_ITS | Encounter Summary ---
Author Organization [facility] Address [address] [place] [address] Care Team Providers Care Machine Maintenance Technician Name Role Phone Jean Munoz MD Primary Care Provider Manny Rizzo MD Unavailable Reason for Visit * Reason Onset Date Comments Medications Refill 07/31/2013 Encounter Details Date Type Department Care Team (Late st Contact Info) Description 07/31/2013 Telephone [facility] Sleep Program - [address] [phone] Tiana Bacon [address] [place] [phone] Medications Refill Social History Tobacco Use [...] Tabs by mouth daily. 60 Tab 0 08/02/2013 08/28/2013 methylphenidate (RITALIN;METHYLIN) 10 mg tablet Take one tab in the afternoon for narcolepsy 30 Tab 0 08/02/2013 08/28/2013 documented in this encounter Miscellaneous Notes * Telephone Encounter - Barbara Gimenez - 07/31/2013 1216 EST PT needs refill on Ritalin 20mg 2/day; Ritalin 10mg 1/day. 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 [address] [place], [place] [phone] Jean Munoz MD [address] [place] [phone] documented as of this encounter Visit Diagnoses Not on filedocumented in this encounter Discontinued Medications Medication Sig Discontinue Reason Start Date End Da te methylphenidate (RITALIN;METHYLIN) 10 mg tablet Take one tab in the afternoon for narcolepsy Reorder 07/03/2013 07/31/2013 methylphenidate (RITALIN;METHYLIN) 20 mg tablet Take 2 Tabs by mouth daily. Reorder 07/03/2013 07/31/2013 documented as of this encounter Care Teams Machine Maintenance Technician Relationship Specialty Start Date End Date Jean Munoz MD [address] [place] [phone] PCP - General 12/31/08 Manny Rizzo MD [address] [place] [address] 04/20/10 documented as of this encounter
--- OUTSIDE RECORDS SUMMARY | 2024-06-10 07:27 | XMS_ITS | Encounter Summary ---
Author Organization [facility] Address [address] [place] [address] Care Team Providers Care Senior Product Analyst Name Role Phone Jean Munoz MD Primary Care Provider Manny Rizzo MD Unavailable Reason for Visit * Reason Comments Asthma COPD, depression, fo llow up from 04/10/13.patient due for a mammogram, order pended. Medications Refill peded refill on zofr an. patient states that she called pharm and they told her that she had no refills on prilosec left, according to our records she should have 2 refills of 180 pills left. Encounter Details Date Type Department Care Team (Late st Contact Info) Description 06/13/2013 14:15 EDT Office Visit [facility] Medicine [facility] [address] [place] [address] Jean Munoz MD [address] [place] [phone] COPD (chronic obstructive pulmonary disease) (CMS-HCC) ([facility]) (Primary Dx); Asthma; Gastroesophageal reflux disease; Insomnia; Chronic knee pain Discharge Disposition: Auto Discharge Social History [...] Sign Reading Time Taken Comments Blood Pressure 100/68 06/13/2013 1430 EDT Pulse 72 06/13/2013 1430 EDT Temperature 37 ??C (98.6 ??F) 06/13/2013 1430 EDT Respiratory Rate 20 06/13/2013 1430 EDT Oxygen Saturation 97% 06/13/2013 1430 EDT Inhaled Oxygen Concentration - - Weight 90.7 kg (200 lb) 06/13/2013 1430 EDT Height - - Body Mass Index 34.33 04/10/2013 1355 EDT documented in this encounter Functional Status Cognitive Status Response Date of Assessm ent Because of a physical, menta l, or emotional condition, do you have serious difficulty concentrating, remembering, or making decisions? (5 years old or older) Yes 02/26/2013 documented as of this encounter Patient Instructions * Patient Instructions* Jean Munoz MD - 06/13/2013 15:08 EDT Please call [phone] to schedule a screening mammogram documented in this encounter Ordered Prescriptions Prescription Sig Dispensed Refills Start Date End Da te zolpidem (AMBIEN) 5 mg tabletIndications:Insomni a Take 1 Tab by mouth at bedtime as needed for Sleep. 30 Each 2 06/13/2013 09/21/2013 ondansetron (ZOFRAN) 4 mg tabletIndications:Gastroe sophageal reflux disease Take 1 Tab by mouth daily as needed for Nausea. 60 Tab 0 06/13/2013 12/13/2013 documented in this encounter Discharge Disposition Disposition Code Departure Means Destination Auto Discharge documented in this encounter Progress Notes * John Cid - 06/13/2013 0437 EDT Prescription for Ambien called in to pharmacy as the prescription printer was not working. Printer later printed prescription, This copy was marked as void and discarded. * Jean Munoz MD - 06/13/2013 9373 EDT Subjective: Patient ID: Liset Viera is an 52 y.o. female. Chief Complaint Patient presents with ??? Asthma COPD, depression, follow up from 04/10/13.patient due for a mammogram, order pended. ??? Medications Refill peded refill on zofran. patient states that she called pharm and they told her that she had no refills on prilosec left, according to our records she should have 2 refills of 180 pills left. HPI COPD/Asthma Patient state You took away my oxygen Still with intermittent SOB States O2 sat 90 with exertion such as house work, ?sometimes lower +wheezing +tightness No chest pain No edema +orthopnea Was using at night, now worse without Knee pain F/U Dr Glynn pending Scripts due 06/03 GERD ?refill as noted Confirmed refills on prior Rx Patient Active Problem List Diagnoses ??? Severe [...] NOS 11/06/09 ??? Laceration 12/26/09 ??? Dizziness 4/15/10 ??? Pneumonia 04/05/2012 ??? Abscess of face 09/21/2010 ??? Atypical pneumonia 04/05/2012 ??? Edema of leg 12/31/2009 ??? Fracture of right ankle 03/30/2010 ??? Pneumonia 03/01/2013 Current Outpatient Prescriptions on File Prior to Visit Medication Sig Dispense Refill ??? zolpidem (AMBIEN) 5 mg tablet Take [...] rarely ROS - See HPI Objective: BP 100/68 Pulse 72 Temp(Src) 37 ??C (98.6 ??F) (Tympanic) Resp 20 Wt 90.719 kg (200 lb) SpO2 97% LMP 01/11/1987 Physical Exam Anxious but not acutely dyspneic Assessment: Plan: Liset was seen today for asthma and medications refill. Diagnoses and associated orders for this visit: Copd (chronic obstructive pulmonary disease) - Ear/Pulse Oximetry, Single F/U pulmonary as scheduled Asthma - Ear/Pulse Oximetry, Single Gastroesophageal reflux disease - ondansetron (ZOFRAN) 4 mg tablet; Take 1 Tab by mouth daily as needed for Nausea. Insomnia - zolpidem (AMBIEN) 5 mg tablet; Take 1 Tab by mouth at bedtime as needed for Sleep. Chronic knee pain F/U per Ortho Patient Education Topic: as above Method: Verbal Taught to: Patient Barriers: None Outcomes: Verbalized understanding Return in 3 weeks (on 07/03/2013) for ROV. documented in this encounter Plan of Treatment Upcoming Encounters Date Type Department Care Team (Late st Contact Info) Description 06/29/2024 14:15 EDT Office Visit [facility] [address] [place] [address] Jean Munoz MD [address] [place] [phone] Scheduled Orders Name Type Priority Associated Diagnoses Orde r Schedule EAR/PULSE OXIMETRY, SINGLE Procedures Routine Asthma COPD (chronic obstructive pulmonary disease) ([facility]) ([facility]) Ordered: 06/13/2013 documented as of this encounter Visit Diagnoses Diagnosis COPD (chronic obstructive pulmonary disease) ([facility])- Primary Chronic airway obstruction, not elsewhere classified Asthma Unspecified asthma Gastroesophageal reflux disease Esophageal reflux Insomnia Insomnia, unspecified Chronic knee pain Pain in joint, lower leg Screening for [...] Discontinue Reason Start Date End Da te aluminum & magnesium hydroxide-simethicone (MYLANTA-DS) 400-400-40 mg/5 mL suspension Take 15 mL by mouth as needed (epigastric pain). Patient Stopped Taking 03/01/2013 06/13/2013 levofloxacin (LEVAQUIN) 500 mg tablet Take 1 Tab by mouth daily. Therapy completed 03/01/2013 06/13/2013 ondansetron (ZOFRAN) 4 mg tabletIndications:Benja roesophageal reflux disease Take 1 Tab by mouth daily as needed for Nausea. Reorder 03/02/2013 06/13/2013 zolpidem (AMBIEN) 5 mg tabletIndications:Inso mnia Take 1 Tab by mouth at bedtime as needed for Sleep. Reorder 06/06/2013 06/13/2013 documented as of this encounter Care Teams Senior Product Analyst Relationship Specialty Start Date End Date Jean Munoz MD [address] [place] [phone] PCP - General 12/31/08 Manny Rizzo MD [address] [place] [address] 04/20/10 documented as of this encounter
--- OUTSIDE RECORDS SUMMARY | 2024-06-10 07:27 | XMS_ITS | Encounter Summary ---
Author Organization [facility] Address [address] [place] [address] Care Team Providers Care Ppa Teacher Name Role Phone Jean Munoz MD Primary Care Provider Manny Rizzo MD Unavailable Reason for Visit * Reason Onset Date Comments Medications Refill 08/16/2013 Encounter Details Date Type Department Care Team (Late st Contact Info) Description 08/16/2013 Refill [facility] [address] [place], [place] [phone] Jean Munoz MD [address] [place] [phone] Medications Refill Social History Tobacco [...] Date End Da te fluticasone-salmeterol (ADVAIR HFA) 230-21 mcg/actuation inhalerIndications:Asthm a,COPD (chronic obstructive pulmonary disease) ([facility]) Inhale 2 Puffs as directed 2 times daily. 3 Inhaler 0 08/16/2013 12/13/2013 documented in this encounter Miscellaneous Notes * Telephone Encounter - Ra Pope - 08/16/2013 1101 EST Medication(s) Requested: Advair HFA [id number] Pharmacy: [facility] Last Refill Date: 06/05/13 Last Visit Date: 06/29/13 Next Visit Date: 09/14/2013 Is patient out of medication? Yes Ra Pope 08/16/2013 11:01 documented in this encounter Plan of Treatment Upcoming Encounters Date Type Department Care Team (Late st Contact Info) Description 06/29/2024 14:15 EDT Office Visit [facility] [address] [place] [address] Jean Munoz MD [address] [place] [phone] documented as of this encounter Visit Diagnoses Diagnosis Asthma- Primary Unspecified asthma COPD (chronic obstructive pulmonary disease) ([facility]) Chronic airway obstruction, not elsewhere classified Screening [...] Date End Da te fluticasone-salmeterol (ADVAIR HFA) 230-21 mcg/actuation inhalerIndications:Asthm a,COPD (chronic obstructive pulmonary disease) ([facility]) Inhale 2 Puffs as directed 2 times daily. Reorder 06/05/2013 08/16/2013 documented as of this encounter Care Teams Ppa Teacher Relationship Specialty Start Date End Date Jean Munoz MD [address] [place] [phone] PCP - General 12/31/08 Manny Rizzo MD [address] [place] [phone] 04/20/10 documented as of this encounter
--- OUTSIDE RECORDS SUMMARY | 2024-06-10 07:27 | XMS_ITS | Encounter Summary ---
Author Organization [facility] Address [address] [place] [address] Care Team Providers Care Manager Immunology Name Role Phone Jean Munoz MD Primary Care Provider Manny Rizzo MD Unavailable Reason for Visit * Reason Onset Date Comments Follow-up 06/15/2013 Encounter Details Date Type Department Care Team (Late st Contact Info) Description 06/15/2013 Telephone [facility] [address] [place] [address] Jean Munoz MD [address] [place] [phone] Follow-up Social History Tobacco Use [...] Start Date End Da te predniSONE (DELTASONE) 20 mg tabletIndications:Asthma Take 2 Tabs by mouth daily for 5 days. 10 Tab 0 06/15/2013 06/20/2013 documented in this encounter Miscellaneous Notes * Telephone Encounter - Jean Munoz MD - 06/15/2013 1929 EDT I called patient, discussed upcoming F/U with Dr Virk, will address home O2 at that visit Will give short course prednisone until then, escript done documented in this encounter Plan of Treatment Upcoming Encounters Date Type Department Care Team (Late st Contact Info) Description 06/29/2024 14:15 EDT Office Visit [facility] [address] [place], [place] [phone] Jean Munoz MD [address] [place] [phone] documented as of this encounter Visit Diagnoses Diagnosis Asthma- Primary Unspecified asthma Screening for osteoporosis- Primary Special screening for osteoporosis Primary narcolepsy without cataplexy Chronic pain syndrome Chronic low back pain Lumbago Chronic use of opiate for therapeutic purpose Pain medication agreement Encounter for long-term (current) use of other medications Screen for colon cancer Special screening for malignant neoplasms, colon documented in this encounter Care Teams Manager Immunology Relationship Specialty Start Date End Date Jean Munoz MD [address] [place] [phone] PCP - General 12/31/08 Manny Rizzo MD [address] [place] [address] 04/20/10 documented as of this encounter
--- OUTSIDE RECORDS SUMMARY | 2024-06-10 07:27 | XMS_ITS | Encounter Summary ---
Author Organization [facility] Address [address] [place] [address] Care Team Providers Care Inker And Opaquer Name Role Phone Jean Munoz MD Primary Care Provider Manny Rizzo MD Unavailable Encounter Details Date Type Department Care Team (Late st Contact Info) Description 06/14/2013 Results Only Imaging [facility] [address] [place] [address] Jean Munoz MD [address] [place] [phone] Social History Tobacco Use Types [...] Visit [facility] [address] [place] [address] Jean Munoz MD [address] [place] [phone] documented as of this encounter Procedures Procedure Name Priority Date/Time Associated Diagnosis Comments MA MAMMO SCREENING DIGITAL 06/21/2013 13:23 EDT documented in this encounter Results * MA MAMMO SCREENING DIGITAL (06/21/2013 13:23 EDT) Anatomical Region Laterality Modality Other 06/21/2013 13:2 3 EDT 06/22/2013 13:51 EDT Narrative 06/22/2013 13:51 EDT Comparison has been made to previous images. Bilateral Breast Findings: (Routine digital views with CAD) The breasts are almost [...] will contact your patient directly. Procedure Note 06/22/2013 Comparison has been made to previous images. Bilateral Breast Findings: (Routine digital views with CAD) The breasts are almost [...] on filedocumented in this encounter Care Teams Inker And Opaquer Relationship Specialty Start Date End Date Jean Munoz MD [address] [place] [phone] PCP - General 12/31/08 Manny Rizzo MD [address] [place] [phone] 04/20/10 documented as of this encounter
--- OUTSIDE RECORDS SUMMARY | 2024-06-10 07:27 | XMS_ITS | Encounter Summary ---
Author Organization [facility] Address [address] [place] [address] Care Team Providers Care Zinc Etcher Name Role Phone Jean Munoz MD Primary Care Provider Manny Rizzo MD Unavailable Reason for Visit * Reason Onset Date Comments Medications Refill 10/23/2013 Encounter Details Date Type Department Care Team (Late st Contact Info) Description 10/23/2013 Telephone [facility] Sleep Program - [address] [phone] Tiana Bacon [address] [place] [phone] Medications Refill Social History Tobacco Use [...] by mouth daily. Earliest Fill Date: 10/24/13 60 Tab 0 10/24/2013 11/20/2013 methylphenidate (RITALIN;METHYLIN) 10 mg tablet Take one tab in the afternoon for narcolepsy. 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 * Telephone Encounter - Duy Booth - 10/23/2013 0834 EST Calling to request refills of Ritalin to be picked up on Wednesday. documented in this encounter Plan of Treatment Upcoming Encounters Date Type Department Care Team (Late st Contact Info) Description 06/29/2024 14:15 EDT Office Visit [facility] Medicine [facility] [address] [place], [place] [phone] Jean Munoz MD [address] [place] [phone] documented as of this encounter Visit Diagnoses Not on filedocumented in this encounter Discontinued Medications Medication Sig Discontinue Reason Start Date End Da te methylphenidate (RITALIN;METHYLIN) 10 mg tablet Take one tab in the afternoon for narcolepsy Reorder 09/27/2013 10/23/2013 methylphenidate (RITALIN;METHYLIN) 20 mg tablet Take 2 Tabs by mouth daily. Reorder 09/27/2013 10/23/2013 documented as of this encounter Care Teams Zinc Etcher Relationship Specialty Start Date End Date Jean Munoz MD [address] [place] [phone] PCP - General 12/31/08 Manny Rizzo MD [address] [place] [phone] 04/20/10 documented as of this encounter
--- OUTSIDE RECORDS SUMMARY | 2024-06-10 07:28 | XMS_ITS | Encounter Summary ---
Author Organization [facility] Address [address] [place] [address] Care Team Providers Care Ecotherapist Name Role Phone Jean Munoz MD Primary Care Provider Manny Rizzo MD Unavailable Reason for Visit * Reason Comments Other Encounter Details Date Type Department Care Team (Late st Contact Info) Description 06/08/2013 [facility] [address] [place] [address] Jean Munoz MD [address] [place] [phone] Other Social History Tobacco Use Types [...] Notes * Telephone Encounter - Yadira Mccauley, CHRIS - 06/08/2013 6679 EDT Medication(s) Requested: Omeprazole 20mg Pharmacy: [facility] Last Refill Date: 11/24/12 Last Visit Date: 04/10/13 Next Visit Date: 06/13/2013 Is patient out of medication? Unknown Per Dr. Munoz progress note dated 04/10/13: Gastroesophageal reflux disease - omeprazole (PRILOSEC) 40 mg capsule; Take 1 Cap by mouth daily. Omeprazole 40mg script was written 04/10/13 Yadira Guaman RN 06/08/2013 13:18 documented in this encounter Plan of Treatment Upcoming Encounters Date Type Department Care Team (Late st Contact Info) Description 06/29/2024 14:15 EDT Office Visit [facility] Medicine [facility] [address] [place], [place] [phone] Jean Munoz MD [address] [place] [phone] documented as of this encounter Visit Diagnoses Not on filedocumented in this encounter Care Teams Ecotherapist Relationship Specialty Start Date End Date Jean Munoz MD [address] [place] [phone] PCP - General 12/31/08 Manny Rizzo MD [address] [place] [phone] 04/20/10 documented as of this encounter
--- OUTSIDE RECORDS SUMMARY | 2024-06-10 07:28 | XMS_ITS | Encounter Summary ---
Author Organization [facility] Address [address] [place] [address] Care Team Providers Care Assistant Operator Name Role Phone Jean Munoz MD Primary Care Provider Manny Rizzo MD Unavailable Encounter Details Date Type Department Care Team (Latest Contact Info) Description 02/22/2013 8:06 EDT - 02/22/2013 23:59 EDT Hospital Encounter [facility] [place] [address] [place] [address] Jean Munoz MD [address] [place] [phone] Discharge Disposition: Auto Discharge Social History [...] decisions? (5 years old or older) Yes 04/05/2012 documented as of this encounter Medications at Time of Discharge Medication Sig Dispensed Refills Start Date End Date docusate sodium (COLACE) 100 mg capsule Take 1 Capsule by mouth 2 times daily as needed for Constipation. 09/24/2010 baclofen (LIORESAL) 10 mg tabletIndications:Low back pain Take 1 Tab by mouth 3 times daily as needed. 270 Tab 0 11/24/2012 03/02/2013 cyclosporine (RESTASIS) 0.05 % ophthalmic emulsion Place 1 Drop into both eyes 4 times daily. 2 Tray 11 07/05/2012 10/24/2013 doxycycline (VIBRA-TABS) 100 mg tablet Take 1 Tab by mouth daily. 30 Tab 11 10/19/2012 02/26/2013 fexofenadine (JUDITH) 180 mg tabletIndications:Seaso nal allergic rhinitis Take 1 Tab by mouth daily. 90 Each 0 11/24/2012 03/02/2013 fluticasone-salmeterol (ADVAIR HFA) 230-21 mcg/actuation inhalerIndications:Asth ma Inhale 2 Puffs as directed 2 times daily. 3 Inhaler 3 11/23/2012 03/02/2013 HYDROcodone-acetaminoph en (LORTAB) 5-500 mg tabletIndications:Left knee pain Take 1 Tab by mouth every 6 hours as needed for Pain for 28 days. 112 Tab 0 03/16/2013 04/10/2013 HYDROcodone-acetaminoph en (LORTAB) 5-500 mg tabletIndications:Left knee pain Take 1 Tab by mouth every 6 hours as needed for Pain for 28 days. 112 Tab 0 02/16/2013 04/10/2013 hydrocodone-acetaminoph en (LORTAB) 5-500 mg tabletIndications:Left knee pain Take 1-2 Tabs by mouth every 6 hours as needed for Pain for 28 days. 112 Tab 0 01/19/2013 04/10/2013 hydroxypropyl methylcellulose (ISOPTO TEARS) 0.5 % ophthalmic solution Place 1 Drop into both eyes 5 times daily. 12/10/2010 10/06/2023 ipratropium-albuterol (DUONEB) 0.5 mg-3 mg(2.5 mg base)/3 mL nebulizer solutionIndications:Ast hma Take 3 mL by nebulization every 6 hours as needed for Wheezing. 3 Box 0 11/24/2012 03/02/2013 levalbuterol (XOPENEX HFA) 45 mcg/actuation inhalerIndications:Asth ma Inhale 1-2 Puffs as directed every 4 hours as needed for Wheezing. 3 Inhaler 0 11/24/2012 03/02/2013 methylphenidate (RITALIN SR; METADATE ER; METHYLIN ER) 20 mg SR tablet Brand only. Take 2 tabs in the morning for narcolepsy. 60 Tab 0 02/15/2013 03/09/2013 methylphenidate (RITALIN;METHYLIN) 20 mg tablet Take 2 Tabs by mouth daily. 60 Tab 0 02/14/2013 03/13/2013 methylphenidate (RITALIN;METHYLIN) 10 mg tablet Take one tab in the afternoon for narcolepsy 30 Tab 0 02/15/2013 03/13/2013 mometasone (NASONEX) 50 mcg/actuation nasal sprayIndications:Season al allergic rhinitis 2 Sprays by nasal route daily. 3 Inhaler 0 11/24/2012 03/02/2013 montelukast (SINGULAIR) 10 mg tabletIndications:Asthm a Take 1 Tab by mouth daily. 90 Each 0 11/24/2012 03/02/2013 nortriptyline (PAMELOR) 75 mg capsuleIndications:Depr ession Take 1 Cap by mouth daily. 90 Each 0 11/24/2012 03/02/2013 omeprazole (PRILOSEC) 40 mg capsule Take 1 Cap by mouth daily. 30 Cap 1 12/01/2012 03/02/2013 ondansetron (ZOFRAN) 4 mg tablet Take 1 Tab by mouth daily as needed for Nausea. 30 Tab 1 11/24/2012 03/02/2013 pregabalin (LYRICA) 150 mg capsuleIndications:Grocery Clerk Checking majo back pain Take 1 Cap by mouth 3 times daily. 270 Each 0 11/24/2012 03/02/2013 ropinirole (REQUIP) 2 mg tabletIndications:Restl ess legs syndrome Take 1 Tab by mouth at bedtime. 90 Each 0 11/24/2012 03/02/2013 sertraline (ZOLOFT) 100 mg tabletIndications:Depre ssion Take 2 Tabs by mouth daily. 180 Tab 0 11/24/2012 03/02/2013 sumatriptan (IMITREX) 50 mg tabletIndications:Migra ine Take 1 Tab by mouth once as needed for Migraine for 1 dose. 9 Each 2 02/08/2013 06/29/2013 tiotropium (SPIRIVA WITH HANDIHALER) 18 mcg inhalation capsuleIndications:Asth ma Inhale 1 Cap as directed daily. 3 Cap 0 11/24/2012 03/02/2013 zolpidem (AMBIEN) 10 mg tabletIndications:Insom yesi Take 1 Tab by mouth at bedtime as needed for Sleep. 30 Each 2 02/08/2013 06/06/2013 documented as of this encounter Discharge Disposition Disposition Code Departure Means Destination Auto Discharge Home documented in this encounter Plan of Treatment Upcoming Encounters Date Type Department Care Team (Late st Contact Info) Description 06/29/2024 14:15 EDT Office Visit [facility] [address] [place], [place] [phone] Jean Munoz MD [address] [place] [phone] documented as of this encounter Visit Diagnoses Not on filedocumented in this encounter Care Teams Assistant Operator Relationship Specialty Start Date End Date Jean Munoz MD [address] [place] [phone] PCP - General 12/31/08 Manny Rizzo MD [address] [place] [address] 04/20/10 documented as of this encounter
--- OUTSIDE RECORDS SUMMARY | 2024-06-10 07:28 | XMS_ITS | Encounter Summary ---
Author Organization [facility] Address [address] [place] [address] Care Team Providers Care Educational Programming Director Name Role Phone Jean Munoz MD Primary Care Provider Manny Rizzo MD Unavailable Reason for Visit * Reason Onset Date Comments Medications Refill 05/08/2013 Encounter Details Date Type Department Care Team (Late st Contact Info) Description 05/08/2013 Refill [facility] - [address] [phone] Tiana Bacon [address] [place] [phone] Medications Refill Social History Tobacco Use [...] Tabs by mouth daily. 60 Tab 0 05/10/2013 06/05/2013 methylphenidate (RITALIN;METHYLIN) 10 mg tablet Take one tab in the afternoon for narcolepsy 30 Tab 0 05/10/2013 06/05/2013 documented in this encounter Miscellaneous Notes * Telephone Encounter - Barbara Gimenez - 05/08/2013 1428 EDT PT needs refills on Ritalin 20mg 2 per day, Ritalin 10mg 1per day. PT will olive picker on Thursday 05/10 at front desk person. documented in this encounter Plan of Treatment Upcoming Encounters Date Type Department Care Team (Late st Contact Info) Description 06/29/2024 14:15 EDT Office Visit [facility] [address] [place], [place] [phone] Jean Munoz MD [address] [place] [phone] documented as of this encounter Visit Diagnoses Not on filedocumented in this encounter Discontinued Medications Medication Sig Discontinue Reason Start Date End Da te methylphenidate (RITALIN;METHYLIN) 10 mg tablet Take one tab in the afternoon for narcolepsy Reorder 04/12/2013 05/08/2013 methylphenidate (RITALIN;METHYLIN) 20 mg tablet Take 2 Tabs by mouth daily. Reorder 04/12/2013 05/08/2013 documented as of this encounter Care Teams Educational Programming Director Relationship Specialty Start Date End Date Jean Munoz MD [address] [place] [phone] PCP - General 12/31/08 Manny Rizzo MD [address] [place] [address] 04/20/10 documented as of this encounter
--- OUTSIDE RECORDS SUMMARY | 2024-06-10 07:28 | XMS_ITS | Encounter Summary ---
Author Organization [facility] Address [address] [place] [address] Care Team Providers Care Hand Presser Name Role Phone Jean Munoz MD Primary Care Provider Manny Rizzo MD Unavailable Reason for Visit * Reason Onset Date Comments No Show 03/09/2013 Encounter Details Date Type Department Care Team (Late st Contact Info) Description 03/09/2013 Telephone [facility] [address] [place] [address] Jean Munoz MD [address] [place] [phone] No Show Social History Tobacco Use Types Packs/Day Years [...] * Telephone Encounter - Madelaine Nava - 03/09/2013 9847 EDT I spoke to pt to go over our no show policy. She was unaware that this appointment was made for her. I remember speaking to a doctor before pt was discharged from hospital to schedule pt for this visit. Pt should have received appointment info on her discharge summary. documented in this encounter Plan of Treatment Upcoming Encounters Date Type Department Care Team (Late st Contact Info) Description 06/29/2024 14:15 EDT Office Visit [facility] Medicine [facility] [address] [place], [place] [phone] Jean Munoz MD [address] [place] [phone] documented as of this encounter Visit Diagnoses Not on filedocumented in this encounter Care Teams Hand Presser Relationship Specialty Start Date End Date Jean Munoz MD [address] [place] [phone] PCP - General 12/31/08 Manny Rizzo MD [address] [place] [phone] 04/20/10 documented as of this encounter
--- OUTSIDE RECORDS SUMMARY | 2024-06-10 07:28 | XMS_ITS | Encounter Summary ---
Author Organization [facility] Address [address] [place] [address] Care Team Providers Care Trimmer Meat Name Role Phone Jean Munoz MD Primary Care Provider Manny Rizzo MD Unavailable Reason for Visit * Reason Comments Appointment Related Encounter Details Date Type Department Care Team (Late st Contact Info) Description 02/08/2013 Telephone [facility] [place] [address] Shruthi Vigil, FORESTRY SUPERVISOR [address] [place] [address] Appointment Related Social History Tobacco Use Types [...] Yes 04/05/2012 documented as of this encounter Miscellaneous Notes * Telephone Encounter - Shruthi Viigl - 02/08/2013 1041 EDT MRI left knee 02/20 @[facility] @1130, ck in 1045; Follow up w/ Dr. Glynn 02/27 @5920. Patient aware of appts. documented in this encounter Plan of Treatment Upcoming Encounters Date Type Department Care Team (Late st Contact Info) Description 06/29/2024 14:15 EDT Office Visit [facility] [address] [place] [address] Jean Munoz MD [address] [place] [address] documented as of this encounter Visit Diagnoses Not on filedocumented in this encounter Care Teams Trimmer Meat Relationship Specialty Start Date End Date Jean Munoz MD [address] [place] [phone] PCP - General 12/31/08 Manny Rizzo MD [address] [place] [address] 04/20/10 documented as of this encounter
--- OUTSIDE RECORDS SUMMARY | 2024-06-10 07:28 | XMS_ITS | Encounter Summary ---
Author Organization [facility] Address [address] [place] [address] Care Team Providers Care Parasitology Teacher Name Role Phone Jean Munoz MD Primary Care Provider Manny Rizzo MD Unavailable Reason for Visit * Reason Comments Follow-up F/U W CYSTOSCOPY Encounter Details Date Type Department Care Team (Late st Contact Info) Description 02/14/2013 9:15 EDT Office Visit [facility] Urology - Main [place] [address] [place], [place] [phone] Stephen Martinez MD [address] [place] [address] Urinary hesitancy (Primary Dx); Straining to void [...] Yes 04/05/2012 documented as of this encounter Progress Notes * PriyaStephen - 02/14/2013 0921 EDT Subjective: Patient ID: Liset Viera is an 52 y.o. female. Liset Viera is seen in the office today for cystoscopy. HPI Comments: Last ov 01-11-13 had bladder scan: she voided 2-3 ounces, and residual urine amount heh991 ml States she is drinking less at night; wets the bed 1-2X/week No change in hesitancy or straining to void UA 01-11-13 <1R, few epi, 10-30 crystals Patient Active Problem List Diagnoses ??? Severe major depression without psychotic features ??? Gastroesophageal reflux disease ??? Chronic back pain ??? Obesity ??? Cervicalgia ??? Impaired glucose tolerance ??? Migraine ??? Peptic ulcer ??? Asthma ??? Restless legs syndrome ??? Insomnia ??? Narcolepsy ??? Hip pain ??? Chronic knee pain ??? Tobacco dependence syndrome ??? Degeneration of cervical intervertebral disc ??? Anxiety ??? Routine health maintenance ??? Fatty liver ??? Chronic pain ??? [...] Numbness ??? Chronic fatigue ??? LUQ pain Past Medical History Diagnosis Date ??? UTI [...] 12/31/2009 ??? Fracture of right ankle 03/30/2010 Past Surgical History Procedure Date ??? Salpingectomy 1982 ectopic ??? Hysterectomy, vaginal menorrhagia ??? Shoulder arthroscopy 10/15 left, with acromioplasty ??? Gastric fundoplication 03/02/07 [facility] ??? Cervical spine surgery 12/31/08 discectomy, fusion C4-7 Dr Dewitt ??? Colonoscopy 07/29/09 repeat 10 years ??? Ankle fracture surgery 04/01/10 left ankle [facility] ??? Cyst incision and drainage 09/17/10 left cheek ??? Fine needle aspiration 09/19/10 left cheek Family History Problem Relation Age of Onset [...] Topics ??? Smoking status: Former Smoker -- 2.0 packs/day for 35 years Types: Cigarettes Quit date: 10/14/2010 ??? Smokeless tobacco: Never Used ??? Alcohol Use: No rarely Current Outpatient Prescriptions on File Prior to Visit Medication Sig Dispense Refill ??? HYDROcodone-acetaminophen (LORTAB) 5-500 mg tablet Take 1 Tab by mouth every 6 hours as needed for Pain for 28 days. 112 Tab 0 ??? HYDROcodone-acetaminophen (LORTAB) 5-500 mg tablet Take 1 Tab by mouth every 6 hours as needed for Pain for 28 days. 112 Tab 0 ??? sumatriptan (IMITREX) 50 mg tablet Take 1 Tab by mouth once as needed for Migraine for 1 dose. 9 Each 2 ??? zolpidem (AMBIEN) 10 mg tablet Take 1 Tab by mouth at bedtime as needed for Sleep. 30 Each 2 ??? methylphenidate (RITALIN SR; METADATE ER; METHYLIN ER) 20 mg SR tablet Brand only. Take 2 tabs in the morning for narcolepsy. 60 Tab 0 ??? methylphenidate (RITALIN;METHYLIN) 10 mg tablet Take one tab in the afternoon for narcolepsy 30Tab 0 ??? omeprazole (PRILOSEC) 40 mg capsule Take 1 Cap by mouth daily. 30 Cap 1 ??? pregabalin (LYRICA) 150 mg capsule Take 1 Cap by mouth 3 times daily. 270 Each 0 ??? baclofen (LIORESAL) 10 mg tablet Take 1 Tab by mouth 3 times daily as needed. 270 Tab 0 ??? fexofenadine (JUDITH) 180 mg tablet Take 1 Tab by mouth daily. 90 Each 0 ??? ipratropium-albuterol (DUONEB) 0.5 mg-3 mg(2.5 mg base)/3 mL nebulizer solution Take 3 mL by nebulization every 6 hours as needed for Wheezing. 3 Box 0 ??? levalbuterol (XOPENEX HFA) 45 mcg/actuation inhaler Inhale 1-2 Puffs as directed every 4 hours as needed for Wheezing. 3 Inhaler 0 ??? mometasone (NASONEX) 50 mcg/actuation nasal spray 2 Sprays by nasal route daily. 3 Inhaler 0 ??? nortriptyline (PAMELOR) 75 mg capsule Take 1 Cap by mouth daily. 90 Each 0 ??? ropinirole (REQUIP) 2 mg tablet Take 1 Tab by mouth at bedtime. 90 Each 0 ??? sertraline (ZOLOFT) 100 mg tablet Take 2 Tabs by mouth daily. 180 Tab 0 ??? montelukast (SINGULAIR) 10 mg tablet Take 1 Tab by mouth daily. 90 Each 0 ??? tiotropium (SPIRIVA WITH HANDIHALER) 18 mcg inhalation capsule Inhale 1 Cap as directed daily. 3 Cap 0 ??? hydrocodone-acetaminophen (LORTAB) 5-500 mg tablet Take 1-2 Tabs by mouth every 6 hours as needed for Pain for 28 days. 112 Tab 0 ??? ondansetron (ZOFRAN) 4 mg tablet Take 1 Tab by mouth daily as needed for Nausea. 30 Tab 1 ??? fluticasone-salmeterol (ADVAIR HFA) 230-21 mcg/actuation inhaler Inhale 2 Puffs as directed 2 times daily. 3 Inhaler 3 ??? doxycycline (VIBRA-TABS) 100 mg tablet Take 1 Tab by mouth daily. 30 Tab 11 ??? cyclosporine (RESTASIS) 0.05 % ophthalmic emulsion [...] visit. Latest known visit with results is: Office Visit on 01/11/2013 Component Date Value Range Status ??? Bladder Scan 01/11/2013 69 ml Final voided 3 0z ??? Color, UA 01/11/2013 Yellow Final ??? Clarity, UA 01/11/2013 Clear Final ??? Glucose, UA 01/11/2013 Neg Neg Final ??? Bilirubin, UA 01/11/2013 Neg Neg Final ??? Ketones, UA 01/11/2013 Neg Neg Final ? ? Specific [place], Urine 01/11/2013 >1.030 1.001 - 1.035 Final ??? Blood, UA 01/11/2013 Neg Neg Final ??? pH, UA 01/11/2013 5.5 4.6 - 8.0 Final ??? Protein, UA 01/11/2013 Neg Neg Final ??? Urobilinogen, UA 01/11/2013 0.2 0.2 - 1.0 E.U./dl Final ??? Nitrite, UA 01/11/2013 Neg Neg Final ??? Leuk Esterase 01/11/2013 Neg Neg Final ??? WBC, UA 01/11/2013 None seen 0 - 5 /HPF Final ??? RBC, UA 01/11/2013 less than 1 0 - 5 /HPF Final ??? Squam Epithel, UA 01/11/2013 Few* None seen /HPF Final ??? Renal Epithel, UA 01/11/2013 None seen None seen /HPF Final ??? Bacteria, UA 01/11/2013 None seen None seen /HPF Final ??? Crystals, UA 01/11/2013 10 to 30 Final Calcium Oxalate ??? Casts, UA 01/11/2013 None seen Final ??? UA Comment 01/11/2013 Microscopic results Final Comment: are unreliable on urines unrefrig >2hrs or refrig >8hrs. ??? Mucus, UA 01/11/2013 Present Final ??? UA Comment 01/11/2013 Small sample, less than 12 ml received. Final ??? Refractometer SG,Urine 01/11/2013 1.031 1.001 - 1.035 Final PSA: No results found for this basename: PSA BMP: Lab Results Component Value Date NA 142 10/26/2012 K 4.7 10/26/2012 CL 108 10/26/2012 CO2 24 10/26/2012 BUN 16 10/26/2012 CREATININE 0.61 10/26/2012 CALCIUM 8.3* 10/26/2012 CALCCA 8.9 10/26/2012 MG 2.3 10/26/2012 PHOS 3.0 10/26/2012 LABALBU 3.9 07/21/2011 URO Office Cystoscopy Office cystoscopy for: urinary hesitancy, straining to void. Anesthesia: 2% lidocaine gel . Procedure: Patient identified, prepped and draped in usual sterile manner 14 vietnamese. Flexible cystoscope inserted into urethra without resistance and guided into bladder under direct vision. Finding:slight trabeculation; no tumor, stone or well-circumscribed area of increased mucosal erythema, including the anterior wall and bladder neck areas with retroflexion of the cystoscope; no abnormality of urethral or bladder neck mucosa Plan: ciprofloxacin 500 mg PO now. STEPHEN MARTINEZ MD February 14, 2013 Assessment / Plan: 1. Urinary hesitancy 2. Straining to void no anatomic urethral obstruction on exam; evaluate for functional bladder neck obstruction, and assess bladder muscle strength with urodynamic study Stephen Martinez MD documented in this encounter Miscellaneous Notes * Scanned Note-Null - MATH AND SCIENCE DIVISION CHAIR, SCAN 2 - 02/20/2013 0751 EDT documented in this encounter Plan of Treatment Upcoming Encounters Date Type Department Care Team (Late st Contact Info) Description 06/29/2024 14:15 EDT Office Visit [address] [phone] Jean Munoz MD [address] [place] [phone] [...] colon documented in this encounter Care Teams Parasitology Teacher Relationship Specialty Start Date End Date Jean Munoz MD [address] [place] [phone] PCP - General 12/31/08 Manny Rizzo MD [address] [place] [address] 04/20/10 documented as of this encounter
--- OUTSIDE RECORDS SUMMARY | 2024-06-10 07:28 | XMS_ITS | Encounter Summary ---
Author Organization [facility] Address [address] [place] [address] Care Team Providers Care Pig Casting Machine Operator Name Role Phone Jean Munoz MD Primary Care Provider Manny Rizzo MD Unavailable Reason for Visit * Reason Onset Date Comments Congestion (Non-specific) 02/24/2013 Encounter Details Date Type Department Care Team (Late st Contact Info) Description 02/24/2013 Telephone [facility] Pulmonology & Critical Care - [address] [phone] Jeanette Virk MD [address] [place] [address], [address] [place] [address] Congestion (Non-specific) Social History Tobacco Use Types Packs/Day Years [...] Miscellaneous Notes * Telephone Encounter - Elham Brasher RT - 02/24/2013 1715 EDT LMOM for Liset, letting her know the phones are shut off @ 5. But to take her Duonebs q6 hours PRN of sob, try to cough the mucus out, continue her other meds as prescribed. She is to go to the ED if she is worse and maybe try contacting her PCP for guidance. Asked her to call us back on Wednesday morning and we would help her then. RT PEDRO * Telephone Encounter - Deidre Swift - 02/24/2013 155 EDT Pt said she is congested and SOB. Pt said that we BMP her December appt and told her that we would call her back & never did. I scheduled pt for 06-21. Please call documented in this encounter Plan of Treatment Upcoming Encounters Date Type Department Care Team (Late st Contact Info) Description 06/29/2024 14:15 EDT Office Visit [facility] [address] [place] [address] Jean Munoz MD [address] [place] [address] documented as of this encounter Visit Diagnoses Not on filedocumented in this encounter Care Teams Pig Casting Machine Operator Relationship Specialty Start Date End Date Jean Munoz MD [address] [place] [phone] PCP - General 12/31/08 Manny Rizzo MD [address] [place] [address] 04/20/10 documented as of this encounter
--- OUTSIDE RECORDS SUMMARY | 2024-06-10 07:28 | XMS_ITS | Encounter Summary ---
Author Organization [facility] Address [address] [place] [address] Care Team Providers Care Healthcare Technician Name Role Phone Jean Munoz MD Primary Care Provider Manny Rizzo MD Unavailable Reason for Visit * Reason Onset Date Comments Orders (Non Pre-visit) 02/03/2013 Encounter Details Date Type Department Care Team (Late st Contact Info) Description 02/03/2013 Orders Only [facility] Urology - Main [place] [address] [place], [place] [phone] Alban Powers MD [address] [place] [address] Hesitancy (Primary Dx) Social History Tobacco Use Types [...] Yes 04/05/2012 documented as of this encounter Plan of Treatment Upcoming Encounters Date Type Department Care Team (Late st Contact Info) Description 06/29/2024 14:15 EDT Office Visit [facility] [address] [place], [place] [phone] Jean Munoz MD [address] [place] [address] documented as of this encounter Visit Diagnoses Diagnosis Hesitancy- Primary Urinary hesitancy Screening for osteoporosis- Primary Special screening for osteoporosis Primary narcolepsy without cataplexy Chronic pain syndrome Chronic low back pain Lumbago Chronic use of opiate for therapeutic purpose Pain medication agreement Encounter for long-term (current) use of other medications Screen for colon cancer Special screening for malignant neoplasms, colon documented in this encounter Care Teams Healthcare Technician Relationship Specialty Start Date End Date Jean Munoz MD [address] [place] [phone] PCP - General 12/31/08 Manny Rizzo MD [address] [place] [address] 04/20/10 documented as of this encounter
--- OUTSIDE RECORDS SUMMARY | 2024-06-10 07:28 | XMS_ITS | Encounter Summary ---
Author Organization [facility] Address [address] [place] [address] Care Team Providers Care Senior Software Analyst Name Role Phone Jean Munoz MD Primary Care Provider Manny Rizzo MD Unavailable Reason for Visit * Reason Onset Date Comments Advice Only 02/21/2013 Encounter Details Date Type Department Care Team (Late st Contact Info) Description 02/21/[address] [facility] - Interventional Pain [address] [place] [address] Nithin Mondragon MD [address], [place] [address] Advice Only Social History Tobacco Use Types Packs/Day Years [...] encounter Miscellaneous Notes * Telephone Encounter - Mary Coffman - 02/21/2013 0813 EDT Liset called in today to cancel her appointment for today because she was up all night sick. But, she said her last injection didn't help anyway. She did want to reschedule but there is no time currently available for Yanet. documented in this encounter Plan of Treatment Upcoming Encounters Date Type Department Care Team (Late st Contact Info) Description 06/29/2024 14:15 EDT Office Visit [facility] [address] [place], [place] [phone] Jean Munoz MD [address] [place] [phone] documented as of this encounter Visit Diagnoses Not on filedocumented in this encounter Care Teams Senior Software Analyst Relationship Specialty Start Date End Date Jean Munoz MD [address] [place] [phone] PCP - General 12/31/08 Manny Rizzo MD [address] [place] [address] 04/20/10 documented as of this encounter
--- OUTSIDE RECORDS SUMMARY | 2024-06-10 07:28 | XMS_ITS | Encounter Summary ---
Author Organization [facility] Address [address] [place] [address] Care Team Providers Care Trim Crew Supervisor Name Role Phone Jean Munoz MD Primary Care Provider Manny Rizzo MD Unavailable Encounter Details Date Type Department Care Team (Late st Contact Info) Description 06/02/2013 Orders Only [facility] Pulmonology & Critical Care - [facility] [address] [place], [place] [phone] Jeanette Virk MD [address] [facility], [address] [place] [address] Social History Tobacco Use Types [...] EDT Office Visit [facility] [address] [place] [address] Jean Munoz MD [address] [place] [address] documented as of this encounter Visit Diagnoses Not on filedocumented in this encounter Care Teams Trim Crew Supervisor Relationship Specialty Start Date End Date Jean Munoz MD [address] [place] [address] PCP - General 12/31/08 Manny Rizzo MD [address] [place] [address] 04/20/10 documented as of this encounter
--- OUTSIDE RECORDS SUMMARY | 2024-06-10 07:28 | XMS_ITS | Encounter Summary ---
Author Organization [facility] Address [address] [place] [address] Care Team Providers Care Disabilities Services Officer Name Role Phone Jean Munoz MD Primary Care Provider Manny Rizzo MD Unavailable Reason for Visit * Reason Onset Date Comments Medications Refill 04/10/2013 Encounter Details Date Type Department Care Team (Late st Contact Info) Description 04/10/2013 Refill [facility] Sleep Program - [address] [address] Tiana Bacon [address] [place] [phone] Medications Refill Social History Tobacco Use [...] Tabs by mouth daily. 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 * Telephone Encounter - Barbara Gimenez - 04/10/2013 1259 EDT PT needs refill on Ritalin 20mg 2 every morning; Ritalin 10mg 1 every afternoon. 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 documented in this encounter Plan of Treatment Upcoming Encounters Date Type Department Care Team (Late st Contact Info) Description 06/29/2024 14:15 EDT Office Visit [facility] [address] [place] [address] Jean Munoz MD [address] [place] [phone] documented as of this encounter Visit Diagnoses Not on filedocumented in this encounter Discontinued Medications Medication Sig Discontinue Reason Start Date End Da te methylphenidate (RITALIN;METHYLIN) 10 mg tablet Take one tab in the afternoon for narcolepsy Reorder 03/15/2013 04/10/2013 methylphenidate (RITALIN;METHYLIN) 20 mg tablet Take 2 Tabs by mouth daily. Reorder 03/15/2013 04/10/2013 documented as of this encounter Care Teams Disabilities Services Officer Relationship Specialty Start Date End Date Jean Munoz MD [address] [place] [address] PCP - General 12/31/08 Manny Rizzo MD [address] [place] [phone] 04/20/10 documented as of this encounter
--- OUTSIDE RECORDS SUMMARY | 2024-06-10 07:28 | XMS_ITS | Encounter Summary ---
Author Organization [facility] Address [address] [place] [address] Care Team Providers Care Heavy Duty Mechanic Name Role Phone Jean Munoz MD Primary Care Provider Manny Rizzo MD Unavailable Reason for Visit * Reason Onset Date Comments Knee Pain 02/01/2013 left knee pain Encounter Details Date Type Department Care Team (Late st Contact Info) Description 02/01/2013 Orders Only [facility] Sports Medicine Program - [address] [phone] Bear Glynn MD [address] [place] [phone] Left knee pain (Primary Dx) Social [...] Office Visit [facility] [address] [place], [place] [phone] Jean Munoz MD [address] [place] [address] documented as of this encounter [...] colon documented in this encounter Care Teams Heavy Duty Mechanic Relationship Specialty Start Date End Date Jean Munoz MD [address] [place] [address] PCP - General 12/31/08 Manny Rizzo MD [address] [place] [address] 04/20/10 documented as of this encounter
--- OUTSIDE RECORDS SUMMARY | 2024-06-10 07:28 | XMS_ITS | Encounter Summary ---
Author Organization [facility] Address [address] [place] [address] Care Team Providers Care Auto Mechanic Apprentice Name Role Phone Jean Munoz MD Primary Care Provider Manny Rizzo MD Unavailable Reason for Visit * Reason Onset Date Comments Pharmacy 04/10/2013 Encounter Details Date Type Department Care Team (Late st Contact Info) Description 04/10/2013 Telephone [facility] [address] [place] [address] Jean Munoz MD [address] [place] [phone] Pharmacy Social History Tobacco Use Types [...] Miscellaneous Notes * Telephone Encounter - Lena Mac RN - 04/10/2013 1703 EDT Pharmacy aware * Telephone Encounter - Jean Munoz MD - 04/10/2013 1619 EDT Was seen today and new script done, OK to fill, please let them know * Telephone Encounter - Lena Mac RN - 04/10/2013 1546 EDT Pt called and would like to get med a few days early because she has transportation problems- talked with pharmacist and they will dispense the med which was up for renewal on the 04/13/13 * Telephone Encounter - Kavita Mann - 04/10/2013 1534 EDT Pharmacy calling for verbal permission to fill patients hydrocone today. (she is early) Patient says she saw Dr. Munoz today and he knows she had taken extra for a leg/knee injury. Please call pharmacy documented in this encounter Plan of Treatment Upcoming Encounters Date Type Department Care Team (Late st Contact Info) Description 06/29/2024 14:15 EDT Office Visit [facility] [address] [place], [place] [phone] Jean Munoz MD [address] [place] [address] documented as of this encounter Visit Diagnoses Not on filedocumented in this encounter Care Teams Auto Mechanic Apprentice Relationship Specialty Start Date End Date Jean Munoz MD [address] [place] [address] PCP - General 12/31/08 Manny Rizzo MD [address] [place] [phone] 04/20/10 documented as of this encounter
--- OUTSIDE RECORDS SUMMARY | 2024-06-10 07:28 | XMS_ITS | Encounter Summary ---
Author Organization [facility] Address [address] [place] [address] Care Team Providers Care Group Work Program Aide Name Role Phone Jean Munoz MD Primary Care Provider Manny Rizzo MD Unavailable Reason for Visit * Reason Onset Date Comments Medications Refill 02/14/2013 Encounter Details Date Type Department Care Team (Late st Contact Info) Description 02/14/2013 Refill [facility] Sleep Program - [address] [phone] Myles Griffith MD [address] [place] [phone] Medications Refill Social History Tobacco Use Types [...] Yes 04/05/2012 documented as of this encounter Ordered Prescriptions Prescription Sig Dispensed Refills Start Date End Da te methylphenidate (RITALIN;METHYLIN) 20 mg tablet Take 2 Tabs by mouth daily. 60 Tab 0 02/14/2013 03/13/2013 documented in this encounter Miscellaneous Notes * Telephone Encounter - Myles Griffith MD - 02/14/2013 1450 EDT Spoke with Ms. Viera. Ritalin SR at all local pharmacies due to back order. Prescribed Ritalin 20mg tablets: 40 mg PO daily. documented in this encounter Plan of Treatment Upcoming Encounters Date Type Department Care Team (Late st Contact Info) Description 06/29/2024 14:15 EDT Office Visit [facility] [address] [place], [place] [phone] Jean Munoz MD [address] [place] [phone] documented as of this encounter Visit Diagnoses Not on filedocumented in this encounter Care Teams Group Work Program Aide Relationship Specialty Start Date End Date Jean Munoz MD [address] [place] [phone] PCP - General 12/31/08 Manny Rizzo MD [facility] [place] [address] 04/20/10 documented as of this encounter
--- OUTSIDE RECORDS SUMMARY | 2024-06-10 07:28 | XMS_ITS | Encounter Summary ---
Author Organization [facility] Address [address] [place] [address] Care Team Providers Care Make Up Editor Name Role Phone Jean Munoz MD Primary Care Provider Manny Rizzo MD Unavailable Reason for Visit * Reason Onset Date Comments Medications Refill 02/01/2013 Encounter Details Date Type Department Care Team (Late st Contact Info) Description 02/01/2013 Refill [facility] Sleep Program - [address] [phone] Corrina Ac, RN [address] [place] [address] Medications Refill Social History Tobacco Use Types [...] for narcolepsy 30 Tab 0 02/15/2013 03/13/2013 methylphenidate (RITALIN SR; METADATE ER; METHYLIN ER) 20 mg SR tablet Brand only. Take 2 tabs in the morning for narcolepsy. 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 * Telephone Encounter - Corrina Ac RN - 02/01/2013 1514 EDT (AA away. Methylphenidate prescriptions signed and in the Nurse cabinet. To be filled on or after 02/15/13). documented in this encounter Plan of Treatment Upcoming Encounters Date Type Department Care Team (Late st Contact Info) Description 06/29/2024 14:15 EDT Office Visit [facility] [address] [place] [address] Jean Munoz MD [address] [place] [phone] documented as of this encounter Visit Diagnoses Not on filedocumented in this encounter Discontinued Medications Medication Sig Discontinue Reason Start Date End Da te methylphenidate (RITALIN SR; METADATE ER; METHYLIN ER) 20 mg SR tablet Brand only. Take 2 tabs in the morning for narcolepsy. Reorder 01/18/2013 02/01/2013 methylphenidate (RITALIN;METHYLIN) 10 mg tablet Take one tab in the afternoon for narcolepsy Reorder 01/18/2013 02/01/2013 documented as of this encounter Care Teams Make Up Editor Relationship Specialty Start Date End Date Jean Munoz MD [address] [place] [phone] PCP - General 12/31/08 Manny Rizzo MD [address] [place] [phone] 04/20/10 documented as of this encounter
--- OUTSIDE RECORDS SUMMARY | 2024-06-10 07:28 | XMS_ITS | Encounter Summary ---
Author Organization [facility] Address [address] [place] [address] Care Team Providers Care Net Developer Consultant Name Role Phone Jean Munoz MD Primary Care Provider Manny Rizzo MD Unavailable Encounter Details Date Type Department Care Team (Late st Contact Info) Description 06/06/2013 Abstract [facility] [address] [place] [address] Jean Munoz MD [address] [place] [phone] Social History Tobacco Use Types [...] [facility] [address] [place], [place] [phone] Jean Munoz MD [address] [place] [phone] documented as of this encounter Visit Diagnoses Not on filedocumented in this encounter Care Teams Net Developer Consultant Relationship Specialty Start Date End Date Jean Munoz MD [address] [place] [phone] PCP - General 12/31/08 Manny Rizzo MD [address] [place] [phone] 04/20/10 documented as of this encounter
--- OUTSIDE RECORDS SUMMARY | 2024-06-10 07:28 | XMS_ITS | Encounter Summary ---
Author Organization [facility] Address [address] [place] [address] Care Team Providers Care Airborne Operations Name Role Phone Jean Munoz MD Primary Care Provider Manny Rizzo MD Unavailable Reason for Visit * Reason Onset Date Comments Update 06/08/2013 Encounter Details Date Type Department Care Team (Late st Contact Info) Description 06/08/2013 Telephone [facility] Pulmonology & Critical Care - [address] [phone] Jeanette Virk MD [address] [place] [address], [address] [place] [address] Update Social History Tobacco Use Types Packs/Day Years [...] encounter Miscellaneous Notes * Telephone Encounter - Venkata Minerine - 06/08/2013 1455 EDT Patient had pneumonia in February and her pcp took her oxygen away from her.patient still not feeling well and wants to make sure her appt doesn't get changed again she really Needs to see the doctor. Ifyou want to call her to discuss further you may documented in this encounter Plan of Treatment Upcoming Encounters Date Type Department Care Team (Late st Contact Info) Description 06/29/2024 14:15 EDT Office Visit [facility] [address] [place] [address] Jean Munoz MD [address] [place] [phone] documented as of this encounter Visit Diagnoses Not on filedocumented in this encounter Care Teams Airborne Operations Relationship Specialty Start Date End Date Jean Munoz MD [address] [place] [phone] PCP - General 12/31/08 Manny Rizzo MD [address] [place] [address] 04/20/10 documented as of this encounter
--- OUTSIDE RECORDS SUMMARY | 2024-06-10 07:28 | XMS_ITS | Encounter Summary ---
Author Organization [facility] Address [address] [place] [address] Care Team Providers Care Representative Personal Service Name Role Phone Jean Munoz MD Primary Care Provider Manny Rizzo MD Unavailable Reason for Referral * Consult (Routine/Next Available) - Closed Specialty Diagnoses / Procedures Referred By [facility] Referred To Contact Diagnoses Asthma Pneumonia Tobacco dependence syndrome Depression Marie Caban MD [address] [place] [phone] Referral ID Status Reason Start Date Expiration Date V isits Requested Visits Authorized [id number] Closed Specialty Services Required 03/01/2013 1 1 Question Answer Fpc Referral - Assessment: CP Status Other - smoking cessation Congnitive/Dementia/Mental Health - hx of severe depression Fpc Referral - Disease Mgmt and Education about: COPD Reason for Visit * Reason Comments Shortness of Breath pt sob since last we ek called on zpack, not any better Encounter Details Date Type Department Care Team (Latest Contact Info) Description 02/26/2013 15:35 EDT - 03/01/2013 13:03 EDT Hospital Encounter [facility] Neurosurgery [address] [place] [address] Krzysztof Chun MD McCray, Laura Wright, MD [address] [place] [phone] Asthma (Primary Dx); Left knee pain; Seasonal allergic rhinitis; Depression; Chronic back pain; Restless legs syndrome; Pneumonia; Tobacco dependence syndrome Discharge Disposition: Home or Self Care Social [...] Sign Reading Time Taken Comments Blood Pressure 112/61 03/01/2013 1018 EDT Pulse 76 03/01/2013 1018 EDT Temperature 35.7 ??C (96.3 ??F) 03/01/2013 1018 EDT Respiratory Rate 18 03/01/2013 1018 EDT Oxygen Saturation 97% 03/01/2013 1018 EDT Inhaled Oxygen Concentration - - Weight 92.4 kg (203 lb 12.8 oz) 02/26/2013 1737 EDT Height 162.6 cm (5' 4) 02/26/2013 1737 EDT Body Mass Index 34.98 02/26/2013 1737 EDT documented in this encounter Functional Status Cognitive Status Response Date of Assessm ent Because of a physical, menta l, or emotional condition, do you have serious difficulty concentrating, remembering, or making decisions? (5 years old or older) Yes 02/26/2013 documented as of this encounter Discharge Summaries * Munir Gilliam MD - 02/28/2013 0837 EDT [facility] Discharge Summary Chief Complaint / Admitting Diagnosis: SOB, cough / COPD Exacerbation, Community Acquired PNA Principal Problem / Final Diagnosis: COPD, exacerbation CAP Secondary Diagnosis: Asthma Chronic Pain GERD Depression Tobacco Abuse, in remission Principal Procedure: none Condition at Discharge: Good Assessment at Discharge: Vital signs: Patient Vitals for the past 12 hrs: BP Pulse Heart Rate Resp Temp SpO2 O2 Flow Rate (L/min) O2 Device 03/01/13 1018 112/61 mmHg 76 - 18 35.7 ??C (96.3 ??F) 97 % - - 03/01/13 0825 - - 67 BPM 20 - 95 % 2.5 l/min Nasal cannula 03/01/13 0800 - - - - - 95 % 2.5 l/min Nasal cannula 03/01/13 0610 129/70 mmHg 75 - 22 35.9 ??C (96.6 ??F) 94 % - - 03/01/13 0139 119/57 mmHg 73 - 28 36.3 ??C (97.3 ??F) 95 % - - Hospital Course Liste Meadows is a 52 y.o. female with a history of COPD/Asthma on O2 at night, former smoker, chronic pain, GERD w/ hx of ulceration who presented on 02/26 with complaints of fever, cough, SOB not improved by outpatient management with azithromycin, prednisone, and increased oxygen administaration. She was diagnosed with community acquired PNA and an acute COPD exacerbation and was admitted to the Family Medicine Service. CAP: Pt presented with fever, wheezing and SOB, consistent with COPD exacerbation, however, CXR wasalso concerning for possible bilateral atypical bronchopneumonia. She was started on levofloxacin in the ED and continued 500mg daily to complete a 7day course of therapy to treat CAP. COPD, acute exacerbation: Pt presented with wheezing, cough, and hypoxia that did not respond to initial outpatient therapy with oral prednisone and azithromycin therapy. She was noted to have conversational dyspnea and hypoxia requiring continuous oxygen therapy. She is normally on 2L via NC at night only. She was admitted and treated with oxygen, a 5d prednisone burst, Duonebs q6hr, albuterol PRN, and IS/acapella. Her likely trigger was the CAP and continued exposure to passive cigarette smoke. Over the next two days, pt's oxygen needs improved and ambulatory dyspnea resolved. A home oxygentest was completed, and Liset was found to require 6L of oxygen with ambulation. She was prescribed this oxygen for home. She will follow-up at [facility] in 2 weeks to repeat a 6-minute walk test and re- evaluate her oxygen requirements. Doxycycline and azithromycin were held while on Levaquin to prevent double coverage and prolongation of the QT interval. GERD, Hx of Peptic Ulcer: Liset was continued on her home prilosec. She intermittently experienced increased epigastric pain throughout her hospitalization that improved with GI cocktail. She was encouraged to avoid acid foods/beverages, avoid laying down after eating, sleeping at a mild angle, and c ontinue her prilosec. Pt's other chronic medical conditions were treated without changes from her outpatient regimen. She was discharged to home on 02/28 in good condition to follow up with PCP's office within 1 week. 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 methylphenidate (RITALIN;METHYLIN) 20 mg tablet Take 2 Tabs by mouth daily. 60 Tab 0 ??? HYDROcodone-acetaminophen (LORTAB) 5-500 mg [...] as directed daily. 3 Cap 0 ??? ondansetron (ZOFRAN) 4 mg tablet Take 1 Tab by mouth daily as needed for Nausea. 30 Tab 1 ??? fluticasone-salmeterol (ADVAIR HFA) 230-21 mcg/actuation inhaler Inhale 2 Puffs as directed 2 times daily. 3 Inhaler 3 ??? cyclosporine (RESTASIS) 0.05 % ophthalmic emulsion Place 1 Drop into both eyes 4 times daily. 2Tray 11 ??? hydroxypropyl methylcellulose (ISOPTO TEARS) 0.5 % ophthalmic solution Place 1 Drop into both eyes 5 times daily. ??? docusate sodium (COLACE) 100 mg capsule Take 1 Cap by mouth 2 times daily as needed for Constipation. New medications prescribed at discharge: Medication Sig Dispense Refill ? ? aluminum & magnesium hydroxide-simethicone (MYLANTA-DS) 400-400-40 mg/5 mL suspension Take 15 mL by mouth as needed (epigastric pain). ??? doxycycline (VIBRA-TABS) 100 mg tablet Take 1 Tab by mouth daily. 30 Tab 11 ??? levofloxacin (LEVAQUIN) 500 mg tablet Take 1 Tab by mouth daily. 3 Tab 0 ??? predniSONE (DELTASONE) 20 mg tablet Take 2 Tabs by mouth daily for 2 days. 4 Tab 0 ? ? lactobacillus acidoph & bulgar (FLORANEX) 1 million cell tablet Take 1 Tab by mouth daily for 3 days. 3 Tab 0 Relevant Studies at Discharge: CXR 02/26/13: Findings which could represent a bilateral atypical bronchopneumonia versus pulmonary edema. Conversely, in the appropriate clinical setting this may reflect pulmonary edema superimposedon pneumonia. Clinical correlation is recommended. Last Lab Results at Discharge: BUN: Lab Results Component Value Date BUN 10 03/01/2013 Creatinine: Lab Results Component Value Date CREATININE 0.61 03/01/2013 CBC: Lab Results Component Value Date WBC 8.62 03/01/2013 RBC 3.55* 03/01/2013 HGB 11.3* 03/01/2013 HCT 32.9* 03/01/2013 MCV 93 03/01/2013 MCH 31.7 03/01/2013 MCHC 34.2 03/01/2013 PLT 322* 03/01/2013 DIFFTYPE Automated 03/01/2013 SEDRATE 4 06/28/2008 Electrolytes: Lab Results Component Value Date NA 144 03/01/2013 K 3.5 03/01/2013 CL 106 03/01/2013 CO2 30 03/01/2013 CC: Jean Munoz MD Hospital Discharge Summary completed 03/02/13. Marie Caban M.D. Family Medicine, PGY-II [phone] Attestation: I saw and examined the patient with the resident/fellow 03/02/2013. I agree with the findings and plan of care documented in the resident's/fellow's note. MUNIR GILLIAM MD 03/02/2013 14:26 documented in this encounter Discharge Instructions * Discharge Instructions* Marie Caban MD - 03/01/2013 12:23 EDT --Upon discharge you should continue levofloxacin. --Please do not re-start your doxycycline until after you finish the levofloxacin. --You are not taking azithromycin (because you are on levofloxacin instead) --Please continue the prednisone --Continue Duo-nebs 2-3xday until you finish your prednisone, then return to use as needed. --I have ordered lactobacillus. It is an probiotic that may help to prevent diarrhea while you are on levofloxacin. Diet: Regular Activity: Activity as tolerated Continue oxygen 6L with activity/walking around until follow-up appointment with Dr. Munoz Pending Results: Not applicable Symptoms to Call Your Doctor About: Chest pain (angina) Dizziness or fainting Decreased urine output Fever greater than 100.5 or chills Shortness of breath or rapid breathing Appointments: See Dr. Yohana Chun in March 09 at 1:15. Please call with questions or Concerns. [phone] Please bring all your medications to the follow up appointment with your doctor. Follow-up Services Contacted at Discharge: Attending physician Home health documented in this encounter Medications at Time of Discharge Medication Sig Dispensed Refills Start Date End Date docusate sodium (COLACE) 100 mg capsule Take 1 Capsule by mouth 2 times daily as needed for Constipation. 09/24/2010 aluminum & magnesium hydroxide-simethicone (MYLANTA-DS) 400-400-40 mg/5 mL suspension Take 15 mL by mouth as needed (epigastric pain). 03/01/2013 06/13/2013 baclofen (LIORESAL) 10 mg tabletIndications:Low back pain Take 1 Tab by mouth 3 times daily as needed. 270 Tab 0 11/24/2012 03/02/2013 cyclosporine (RESTASIS) 0.05 % ophthalmic emulsion Place 1 Drop into both eyes 4 times daily. 2 Tray 11 07/05/2012 10/24/2013 doxycycline (VIBRA-TABS) 100 mg tablet Take 1 Tab by mouth daily. 30 Tab 11 03/01/2013 03/02/2013 fexofenadine (JUDITH) 180 mg tabletIndications:Seaso nal allergic [...] for Wheezing. 3 Box 0 11/24/2012 03/02/2013 lactobacillus acidoph & bulgar (FLORANEX) 1 million cell tablet Take 1 Tab by mouth daily for 3 days. 3 Tab 0 03/01/2013 03/04/2013 levalbuterol (XOPENEX HFA) 45 mcg/actuation inhalerIndications:Asth ma Inhale 1-2 Puffs as directed every 4 hours as needed for Wheezing. 3 Inhaler 0 11/24/2012 03/02/2013 levofloxacin (LEVAQUIN) 500 mg tablet Take 1 Tab by mouth daily. 3 Tab 0 03/01/2013 06/13/2013 methylphenidate (RITALIN SR; METADATE ER; METHYLIN ER) [...] for Nausea. 30 Tab 1 11/24/2012 03/02/2013 predniSONE (DELTASONE) 20 mg tablet Take 2 Tabs by mouth daily for 2 days. 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 3 Tab 0 03/01/2013 03/04/2013 predniSONE (DELTASONE) 20 mg tablet Take 2 Tabs by mouth daily for 2 days. 4 Tab 0 03/02/2013 03/04/2013 levofloxacin (LEVAQUIN) 500 mg tablet Take 1 Tab by mouth daily. 3 Tab 0 03/01/2013 06/13/2013 doxycycline (VIBRA-TABS) 100 mg tablet Take 1 Tab by mouth daily. 30 Tab 11 03/01/2013 03/02/2013 aluminum & magnesium hydroxide-simethicone (MYLANTA-DS) 400-400-40 mg/5 mL suspension Take 15 mL by mouth as needed (epigastric pain). 03/01/2013 06/13/2013 documented in this encounter Discharge Disposition Disposition Code Departure Means Destination Home or Self Care documented in this encounter Progress Notes * Jim Beck RN - 03/01/2013 1250 EDT D: d/c orders received A: d/c'd IV. reviewed avs with pt and answered questions. Confirmed scripts were sent electronically to pt's home pharmacy. R: Pt has no more questions at this time. Pt left unit at 1255 via wheelchair to [facility] for a ride home with family. Will call report to [facility]. * Elham Henderson RN - 03/01/2013 1039 EDT Patient being discharged to home with follow up skilled home care support from the [facility] for retirement. She will have outpatient follow up with her PCP. A friend will be picking her up at the [facility] at 1300 hrs. Walk test, script and insurance information sent to [facility]. Patient will contact them when she arrives home. Nursing and MD are aware of the plan. Ashanti Henderson RN [facility] [employer] [phone] * Caroline Benoit RN - 02/28/2013 2118 EDT D: Patient reporting 10/10 chest pain that radiates to her left shoulder blade that might be pressure. Patient has reported similar pain last evening. Patient does say pain is aggravated by palpation to her chest. A: MD notified. Heat pack applied per pt request. R: Will continue to monitor. VS stable on 2.5LO2. Awaiting MD arrival to bedside as of 2118. 2229: Patient reports that pain is much less extreme but still ranks it as 10/10. Says that heat ishelping. Patient says she is ok and elected to get up to restroom independently. She says she is feeling well enough to go to MRI. Will continue to monitor. * Liu Small RT - 02/28/2013 1304 EDT HOME 02 EVALUATION 6 Minute Walk Test / Interpretation Name: Liset Meadows Date of : 1960 DIAGNOSIS: COPD Exacerbation RESTING O2 TITRATION FLOW Room air SPO2 90% % % % % % Walking without assistive device. TIME HR SPO2 LPM COMMENTS Standing 92 92 Room air 30 second 94 86 1 lpm nc 1 minute 96 91 1 lpm nc 1 min/30 sec 97 89 1 lpm nc 2 minutes 98 93 1 lpm nc 2 min/30 sec 100 85 1 lpm nc Increase to 3 lpm after deSAT to 74% 3 minutes 97 92 3 lpm nc 3 min/30 sec 98 93 3 lpm nc 4 minutes 98 83 5 lpm nc deSAT with dizziness/shakes 4 min/30 sec 99 94 5 lpm nc 5 minutes 99 97 5 lpm nc 5 minutes/30 sec 100 93 5 lpm nc 6 minutes 100 92 5 lpm nc Distance walked 1323 . Dyspnea scale: 6 /10. RECOMMENDATIONS Continuous . Flow rate: 0 resting, 6 LPM NC with Exercise. COMMENTS: This recommendation is in addition to her current prescription for Oxygen at night Noncontinuous hours per day: Walking, sleeping, exercise program, other. Re-evaluate in 1 month(s). PCP: Jean Munoz MD Therapist Signature: RT DAVID Expires: 03/02/2013 * Jasmin Campa MD - 02/28/2013 1049 EDT Family Medicine Progress Note Patient Name: Liset Meadows Date of : 1960 Admission date/ time: 02/26/2013 15:35 Current Length of Stay: LOS: 2 days Chief complaint/ Reason for admission: <principal problem not specified> 24 hour events: --Duo-nebs q6hr --Mildly epigastric/chest pain overnight. Reproducible on exam, suspected musculoskeletal. Pain improved with ice pack overnight. Subjective: Feeling somewhat improved today. Dyspnea with ambulation slowly improving. Drinking and eating is easier, but not back to normal. In regards to the pain she experience last night, still mild (points to epigastrium), but much improved. Reports the ice pack was most effective. Now pain is dull. Denies heartburn. ROS: afebrile, no chills, no hypoxia. No abdominal pain/nausea/emesis. Scheduled Medications: ipratropium-albuterol 3 mL nebulization QID doxycycline 100 mg oral DAILY cyclosporine 1 Drop both eyes QID fluticasone-salmeterol 2 Puff inhalation BID hydroxypropyl methylcellulose 1 Drop both eyes 5X DAILY mometasone 2 [place] nasal DAILY montelukast 10 mg oral DAILY nortriptyline 75 mg oral QHS omeprazole 40 mg oral DAILY predniSONE 40 mg oral DAILY pregabalin 150 mg oral TID sertraline 200 mg oral DAILY rOPINIRole 2 mg oral QHS levofloxacin 500 mg oral DAILY enoxaparin 40 mg subcutaneous DAILY PRN Medications: albuterol 2.5 mg Q2H PRN lidocaine 5 % 1 Patch Daily PRN docusate sodium 100 mg BID PRN HYDROcodone-acetaminophen 1 Tab Q6H PRN acetaminophen 650 mg Q6H PRN senna 2 Tab AT BEDTIME PRN Allergies: Toradol and Motrin Physical exam: Vital signs: Blood pressure 118/62, pulse 77, temperature 35.8 ??C (96.4 ??F), temperature source Tympanic, resp. rate 18, height 162.6 cm (64), weight 92.443 kg (203 lb 12.8 oz), last menstrual period 01/11/1987, SpO2 95.00%. I/O's. 24 hours: 02/27 700 - 02/28 0659 In: 460 [P.O.:460] Out: - Last 8h shift: 02/28 700 - 02/28 1459 In: 240 [P.O.:240] Out: - Blood glucose: see flow sheet General: Overweight female in no acute distress- Psychiatric: Alert and is conversing coherently; euthymic affect. HEENT: Sclerae white. Mucous membranes moist. Heart: Regular rate, normal S1S2. No murmurs, rubs, or gallops. Lungs: Course breath sounds bilaterally, prolonged expiration, no wheezing at this time. No conversational dyspnea, no accessory muscle use. Abdomen: Soft, nontender, nondistended. Bowel sounds present. Extremities: No pretibial edema. Dorsalis pedis pulses 2+ bilaterally. Skin: Warm, dry, no rash noted Telemetry: N/A Microbiology: Urine legionelle and strep antigen- Negative. Labs: CBC: Lab Results Component Value Date WBC 10.26 02/28/2013 RBC 3.46* 02/28/2013 HGB 11.0* 02/28/2013 HCT 31.7* 02/28/2013 MCV 91 02/28/2013 MCH 31.9 02/28/2013 MCHC 34.8 02/28/2013 PLT 311 02/28/2013 NEUTROABS 7.32 02/28/2013 SEDRATE 4 06/28/2008 BMP: Lab Results Component Value Date NA 145 02/28/2013 K 3.2* 02/28/2013 CL 108 02/28/2013 CO2 28 02/28/2013 BUN 8* 02/28/2013 CREATININE 0.50* 02/28/2013 GLUCOSEFINGE 126* 11/28/2009 CALCIUM 8.3* 10/26/2012 MG 2.3 10/26/2012 PHOS 3.0 10/26/2012 LABALBU 3.9 07/21/2011 Imaging: N/A Assessment & Plan: Liset Meadows is a 52 y.o.female with history of asthma, COPD, former smoker (still with second hand smoke exposure from ), anxiety, depression, chronic low back and neck pain, GERD who presents with shortness of breath and fever, with CXR and lung exam findings concerning for pneumonia with reactive airway component (COPD vs asthma exacerbation). Admitted to FMS service, continues to wheeze, dyspnea with ambulation to bathroom slowly improving. Active Hospital Problem List: Patient Active Hospital Problem List: Pneumonia (02/26/2013) Assessment: B/L infiltrates on CXR c/w atypical pneumonia, Community acquired. S/p levaquin in the ED -- levaquin 500 mg for total 7 days (day 3/7 today) --Monitor WBC --Cont O2 via NC, and treatment for reactive airway (see below) COPD exacerbation -- Pt with severe asthma/emphysema, followed by Dr. Car. Currently on home oxygen at night. Urine legionella and strep antigens negative. Will continue steroid burst, duo-nebs,albuterol for treatment. Respiratory status slowly improving, dyspnea with ambulation slowly improving. --Duonebs Q6 hours --O2 via nc --Albuterol Q2 hours prn --Burst prednisone 40 mg (Day 3/5) --Continue advair. --will hold sprivia 2/2 to duo-nebs --singulair and nasonex for allergic component --home O2 eval PTD. Chronic pain (neck, back, and shoulder) -- chronic hydrocodone at home dose -- lyrica, requip for restless leg syndrome -- holding stimulant and ambien GERD --Continue omeprazole Depression and anxiety --Continue sertraline Dry eye --Continue artificial tears Nutrition: fluid status- improved after rehydration with IVF, will hold off on further fluids at this time. --regular diet --Hypokalemia- 3.2- Maybe from albuterol q6hr? Will replace KCl today. DVT Prophylaxis --lovenox daily Disposition: Likely home with resumption of service, maybe daytime oxygen? Code status: Full Code Pt discussed with FMS and Dr. Katheryn Caban M.D. Family Medicine, PGY-II [phone] Attending attestation: I personally saw and examined the patient and performed the horton/critical portions of the encounter.I was directly involved in the management of the patient and I discussed the patient with the resident and the FMS team. I agree with the resident's documentation, assessment, and plan with the following additions/exceptions: None. Jasmin Campa MD 02/28/2013 22:18 * Jesi Weiss MD - 02/27/2013 2130 EDT Called to bedside for chest pain. Patient complains of pressure pain midsternum, present since admission but worse today. It is always present worse with deep breathing, and painful on palpation. It does not radiate, she has not ambulated much to know if it worsens with exercise. Vitals: Afebrile, 129/73, 70's, sating 94% on 2.5 L Physical exam: -in no acute distress -resp: diffuse expiratory wheezes throughout -cardiac: RR, no R/M/G Chest wall: reproducible pain on palpation A/P: atypical chest pain, likely chest wall pain from coughing and pneumonia. -IS and acapella ordered -warm pack and lidocaine patch Jesi Weiss MD PGY2 * Elham Henderson RN - 02/27/2013 1427 EDT Case Management Assessment Working Diagnosis/Presenting Problem: Impression: Liset Meadows is a 52 y.o.female with history of asthma, COPD, former smoker (still with second hand smoke exposure from ), anxiety, depression, chronic low back and neck pain, GERD who presents with shortness of breath and fever, with CXR and lung exam findings concerning for pneumonia with reactive airway component (COPD vs asthma exacerbation). Elevated white blood cell count and fever strongly suggestive of infection. Living Arrangements: Patient lives in a first floor apartment in [place] by herself Functional Status (psychosocial and physical): Patient's functional status is limited by her COPD and home oxygen. She does not need to use a caneand a walker. She does not drive and depends on friends and family for transportation Social Supports: Patient is estranged from her ; however, he remains supportive and would be able to stay with her a couple of days if needed. She has supportive friends that live near by Existing Community Resources: Patient has used the [facility] in the past and would be amenable to their services at discharge; choice form signed and referral placed. Patient has home O2 through [facility]. She uses [facility] in [place] Advanced Directives/DPOA: Not in place at this time. Patient is requesting information. Referral placed Cultural/Spiritual Needs: No needs assessed or requested Insurance/Financial Needs: Patient has [place] for her medical and pharmacy needs Transportation Needs: Family to provide Patient Goals: Return home Assessment and Discharge Care Plan: Met with the patient and introduced self and informed of role. Anticipate d/c home with family support and follow up skilled home care services through the [facility] at discharge. Will follow and support. Ashanti Henderson RN [facility] [employer] [phone] * Jasmin Campa MD - 02/27/2013 1325 EDT Family Medicine Progress Note Patient Name: Liset Meadows Date of : 1960 Admission date/ time: 02/26/2013 15:35 Current Length of Stay: LOS: 1 day Chief complaint/ Reason for admission: <principal problem not specified> 24 hour events: Admitted to [facility] with CAP and COPD exacerbation. Subjective: Doing okay today. Continues to have significant ALEJANDRE with ambulation to the bathroom. Continues to complain of wheezing, but has not felt the need to have extra neb treatments. Doesn't think her ability to eat/drink has improved. ROS: afebrile, no chills, no hypoxia-- Mid 90s on 2.5L. Scheduled Medications: ipratropium-albuterol 3 mL nebulization QID azithromycin 250 mg oral DAILY cyclosporine 1 Drop both eyes QID fluticasone-salmeterol 2 Puff inhalation BID hydroxypropyl methylcellulose 1 Drop both eyes 5X DAILY mometasone 2 [place] nasal DAILY montelukast 10 mg oral DAILY nortriptyline 75 mg oral QHS omeprazole 40 mg oral DAILY predniSONE 40 mg oral DAILY pregabalin 150 mg oral TID sertraline 200 mg oral DAILY rOPINIRole 2 mg oral QHS levofloxacin 500 mg oral DAILY enoxaparin 40 mg subcutaneous DAILY PRN Medications: albuterol 2.5 mg Q2H PRN docusate sodium 100 mg BID PRN HYDROcodone-acetaminophen 1 Tab Q6H PRN acetaminophen 650 mg Q6H PRN senna 2 Tab AT BEDTIME PRN Allergies: Toradol and Motrin Physical exam: Vital signs: Blood pressure 117/66, pulse 72, temperature 35.7 ??C (96.3 ??F), temperature source Tympanic, resp. rate 16, height 162.6 cm (64), weight 92.443 kg (203 lb 12.8 oz), last menstrual period 01/11/1987, SpO2 93.00%. I/O's. 24 hours: 02/26 0700 - 02/27 0659 In: 2134 [P.O.:600; I.V.:1534] Out: 800 [Urine:800] Last 8h shift: Blood glucose: see flow sheet General: Overweight female in no acute distress- conversational dyspnea improved some from yesterday. Psychiatric: Alert and is conversing coherently; euthymic affect. HEENT: Sclerae white. Mucous membranes moist. Heart: Regular rate, normal S1S2. No murmurs, rubs, or gallops. Lungs: Diffuse end-expiratory wheezing b/l Abdomen: Soft, nontender, nondistended. Bowel sounds present. Extremities: No pretibial edema. Dorsalis pedis pulses 2+ bilaterally. Skin: Warm, dry, no rash noted Telemetry: N/A Microbiology: Urine legionelle and strep antigen- Negative. Labs: CBC: Lab Results Component Value Date WBC 9.12 02/27/2013 RBC 3.48* 02/27/2013 HGB 10.9* 02/27/2013 HCT 32.1* 02/27/2013 MCV 92 02/27/2013 MCH 31.2 02/27/2013 MCHC 33.9 02/27/2013 PLT 269 02/27/2013 NEUTROABS 7.29 02/27/2013 SEDRATE 4 06/28/2008 BMP: Lab Results Component Value Date NA 144 02/27/2013 K 3.3* 02/27/2013 CL 108 02/27/2013 CO2 25 02/27/2013 BUN 7* 02/27/2013 CREATININE 0.47* 02/27/2013 GLUCOSEFINGE 126* 11/28/2009 CALCIUM 8.3* 10/26/2012 MG 2.3 10/26/2012 PHOS 3.0 10/26/2012 LABALBU 3.9 07/21/2011 Imaging: N/A Assessment & Plan: Liset Meadows is a 52 y.o.female with history of asthma, COPD, former smoker (still with second hand smoke exposure from ), anxiety, depression, chronic low back and neck pain, GERD who presents with shortness of breath and fever, with CXR and lung exam findings concerning for pneumonia with reactive airway component (COPD vs asthma exacerbation). Admitted to FMS service, remains wheezing and dyspneic today, will continue plan as below. Active Hospital Problem List: Patient Active Hospital Problem List: Pneumonia (02/26/2013) Assessment: B/L infiltrates on CXR c/w atypical pneumonia, Community acquired. S/p levaquin in the ED -- levaquin 500 mg for total 7 days (day 10/20 today) --Monitor WBC --Cont O2 via NC, and treatment for reactive airway (see below) COPD exacerbation -- Pt with severe asthma/emphysema, followed by Dr. Car. Currently on home oxygen at night. Urine legionella and strep antigens negative. Will continue steroid burst, duo-nebs,albuterol for treatment. Remains extremely wheezing and dyspneic with exertion today. Will considerneed for home O2 eval PTD. --Duonebs Q6 hours --O2 via nc --Albuterol Q2 hours prn --Burst prednisone 40 mg (Day 2) --Continue advair. --will hold sprivia 2/2 to duo-nebs --singulair and nasonex for allergic component Chronic pain (neck, back, and shoulder) -- chronic hydrocodone at home dose -- lyrica, requip for restless leg syndrome GERD --Continue omeprazole Depression and anxiety --Continue sertraline Dry eye --Continue artificial tears Nutrition: fluid status- improved after rehydration with IVF, will hold off on further fluids at this time. --regular diet DVT Prophylaxis --lovenox daily Disposition: Likely home with resumption of service, maybe daytime oxygen? Code status: Full Code Pt discussed with [facility] and Dr. Katheryn Caban M.D. [facility] Medicine, PGY-II [phone] Attending attestation: I personally saw and examined the patient on 02/27/13 and performed the horton/critical portions of theencounter. I was directly involved in the management of the patient and I discussed the patient with the resident and the FMS team. I agree with the resident's documentation, assessment, and plan with the following additions/exceptions: None. Jasmin Campa MD 02/28/2013 22:18 documented in this encounter H&P Notes * Jasmin Capma MD - 02/26/2013 1626 EDT Family Medicine Service History & Physical Chief Complaint: Cough, shortness of breath History of Present Illness: Liset Meadows is a 52 y.o.female with history of COPD, former smoker who presents with shortness of breath and cough. Pt reports several day h/o worsening shortness of breath, even getting up to the bathroom. She also reports fever to 102 at home within the past 24 hours (said it was hard to takeher temp due to shortness of breath, so she gives herself a breathing treatment before taking her temp). Pt began prednisone on her own on 02/24/13 (she has some at home in case of COPD flair) severaldays ago. She also called her geophysical computer (Dr. Virk), who prescribed a z pack on 02/24. She reports no improvement on oral prednisone or azithromycin. No sick contacts. No recent hospitalizations. Not in assisted living or NH setting. Former smoker. Quit 2 yrs ago. is current every day smoker. Review Of Systems: ROS: No change in weight, + fevers or sweats as per HPI No congestion or URI symptoms. + sore throat and ear fullness since yesterday. No chest pain, palpitations + cough and + SOB. Non productive, no sputum. No hemoptysis. No nausea, vomiting, abdominal pain, diarrhea, constipation, BRBPR No urinary symptoms. No headache, neck stiffness No muscle aches. + back pain from lying on stretcher No numbness or tingling in extremities No skin rashes Past Medical History: PCP: Jean Munoz MD Past Medical History Diagnosis Date ??? UTI [...] Ankle fracture surgery 04/01/10 left ankle ORIF [facility] ??? Cyst incision and drainage 09/17/10 left cheek ??? Fine needle aspiration 09/19/10 left cheek ??? Cystoscopy 02/14/13 History Social History ??? Marital Status: Spouse Name: N/A Number of Children: N/A ??? Years of Education: N/A Occupational History ??? None Social History Main Topics ??? Smoking status: Passive Smoker -- 2.0 packs/day for 35 years Types: Cigarettes Last Attempt to Quit: 10/14/2010 ??? Smokeless tobacco: Never Used ??? Alcohol Use: Yes rarely ??? Drug Use: No no longer using. ??? Sexually Active: Yes -- Male partner(s) Other Topics Concern ??? Not on file Social History Narrative from [place] (ETOH)Son Alexi and Daughter KatiaferCurrently living alone [place] [facility] Family History Problem Relation Age of Onset [...] Degen Neg Hx ??? Blindness Neg Hx Current Medications: No current facility-administered medications for this encounter. Current Outpatient Prescriptions Medication Sig Dispense Refill ??? azithromycin (ZITHROMAX) 250 mg tablet Take 2 tablets (500mg) by mouth on day 1, followed by 1 tablet (250mg) by mouth once daily on days 2 through 5. 6 Tab 0 ??? predniSONE (DELTASONE) 20 mg tablet Take 1 tab orally twice a day for 5 day or until improvement, than taper to 1 once a day for 2 day, than 1/2 for 2 days, than stop. 13 Tab 0 ??? methylphenidate (RITALIN;METHYLIN) 20 mg tablet Take 2 Tabs by mouth daily. 60 Tab 0 ??? HYDROcodone-acetaminophen (LORTAB) 5-500 mg [...] 2 times daily. 3 Inhaler 3 ??? cyclosporine (RESTASIS) 0.05 % ophthalmic emulsion Place 1 Drop into both eyes 4 times daily. 2Tray 11 ??? hydroxypropyl methylcellulose (ISOPTO TEARS) 0.5 % ophthalmic solution Place 1 Drop into both eyes 5 times daily. ??? docusate sodium (COLACE) 100 mg capsule Take 1 Cap by mouth 2 times daily as needed for Constipation. Allergies: Allergies Allergen Reactions ??? Toradol (Ketorolac Tromethamine) Hives ??? Motrin (Ibuprofen) Itching Objective: Physical Exam: BP 120/59 Pulse 72 Temp(Src) 36.3 ??C (97.3 ??F) (Oral) Resp 16 Ht 162.6 cm (64) Wt 90.719 kg (200 lb) BMI 34.33 kg/m2 SpO2 93% LMP 01/11/1987 General: Patient is non-toxic, She does have conversational dyspnea. HEENT: Normocephalic/Atraumatic, Dry MM. Respiratory: Diffuse B/L expiratory wheezes throughout both lung dalal, Scattered inspiratory rhonchi, emilia at the mid left lung. No crackles. Cardiac: Regular rate and rhythm, normal S1 & S2, no murmurs, rubs or gallops Abdomen: Non-distended, positive bowel sounds, soft, non-tender without guarding, rigidity or rebound. No masses or hepatosplenomegaly Genitourinary: Deferred Musculoskeletal: Normal symmetric muscle bulk and strength Dermatologic: No rashes or lesions, Neurologic: CN2-12 grossly intact Psychiatric: Alert and oriented, answers questions appropriately Laboratory: Results for LISET MEADOWS ( ) as of 02/26/2013 16:40 Ref. Range 02/26/2013 11:15 Sodium Latest Range: 136-145 mEq/L 146 (H) Potassium Latest Range: 3.5-5.0 mEq/L 3.9 CO2 Latest Range: 24-32 mEq/L 27 Chloride Latest Range: 96-110 mEq/L 110 BUN Latest Range: 10-26 mg/dl 9 (L) Creatinine Latest Range: 0.7-1.5 mg/dl 0.49 (L) GFR, Calculated Latest Range: >60 ml/min/1.73m2 >60 NT Pro BNP Latest Range: <300 pg/ml 696 (H) WBC Latest Range: 4.0-12.4 K/cmm 12.92 (H) RBC Latest Range: 3.86-5.04 M/cmm 3.94 Hemoglobin Latest Range: 11.6-15.2 gm/dl 12.1 HCT Latest Range: 34.9-44.4 % 36.3 MCV Latest Range: 81-98 fl 92 MCH Latest Range: 26.7-33.3 pg 30.6 MCHC Latest Range: 32.1-35.9 gm/dl 33.2 PLT Latest Range: 141-320 K/cmm 295 RDW-CV Latest Range: 11.7-14.6 % 14.5 Neutrophils Latest Range: 45.5-79.7 % 84.0 (H) Lymphocytes Latest Range: 15.0-46.8 % 13.0 (L) Monocytes Latest Range: 1.8-12.0 % 3.0 ABS Neutrophils Latest Range: 2.20-8.85 K/cmm 10.85 (H) ABS Lymphs Latest Range: 1.09-3.30 K/cmm 1.68 ABS Monocytes Latest Range: 0.1-0.8 K/cmm 0.39 RBC Morphology No range found Normal Type of Diff: No range found Manual Radiology: CXR 02/26/13: Impression: Findings which could represent a bilateral atypical bronchopneumonia versus pulmonary edema. Conversely, in the appropriate clinical setting this may reflect pulmonary edema superimposed on pneumonia. Clinical correlation is recommended. Assessment & Plan by Problems: Impression: Liset Meadows is a 52 y.o.female with history of asthma, COPD, former smoker (still with second hand smoke exposure from ), anxiety, depression, chronic low back and neck pain, GERD who presents with shortness of breath and fever, with CXR and lung exam findings concerning for pneumonia with reactive airway component (COPD vs asthma exacerbation). Elevated white blood cell count and fever strongly suggestive of infection. Active Hospital Problem List: Patient Active Hospital Problem List: Pneumonia (02/26/2013) Assessment: B/L infiltrates on CXR c/w atypical pneumonia, Community acquired Plan: s/p 1 dose levaquin in ED Will treat with levaquin 500 mg for total 7 days (day 09/19 today) Cont azithromycin to complete full course (2 more days) for COPD tx Check urine legionella and strep Monitor WBC Cont O2 via NC, and treatment for reactive airway (see below) COPD exacerbation Assessment: Likely triggered by active CAP Plan: Duonebs Q6 hours O2 via nc Albuterol Q2 hours prn S/p 1 dose solumedrol in ED Burst prednisone 40 mg daily for 5 days (Day 09/17) Continue advair. Hold spiriva. Continue singulair and nasonex for allergic component Elevated BNP No clinical h/o heart disease or [place] No prior echo CXR concerning for possible associated pulmonary edema Continue to monitor, consider echocardiogram if clinically worsens. Chronic pain (neck, back, and shoulder) Continue chronic hydrocodone at home dose Continue lyrica for restless leg syndrome GERD Continue omeprazole Depression and anxiety Continue sertraline Dry eye Continue artificial tears Nutrition Assessment: Clinically dry, SOB with talking. Suspect PO intake will be poor. Plan: D5 1/2 NSS IVF at 125 cc for 2L then reassess nutritional status. Monitor for fluid overload given CXR concern for possible pulmonary edema. DVT Prophylaxis Plan: lovenox QD Disposition: Prognosis good. Code Status: Full code Patient & Plan discussed with Dr. Caban. Signed: Jasmin Campa MD, Attending 02/26/2013 16:26 documented in this encounter ED Notes * Siena Rivera RN - 02/26/2013 8099 EDT Patient transported to M6 with patient support via stretcher. * Siena Rivera RN - 02/26/2013 1649 EDT Report called to Barbara PEREZ on M6. * Siena Rivera RN - 02/26/2013 1642 EDT Patient given turkey sandwich, chocolate pudding and pepsi for lunch. * Belinda Chun MD - 02/26/2013 1617 EDT DOS: 02/26/2013 Chief Complaint Patient presents with ??? Shortness of Breath pt sob since last week called md dimitris jacques, not any better The patient is a 52 y.o. female who presents today with Shortness of Breath HPI Comments: 52-year-old female with a history of severe COPD on home oxygen and steroids presentscomplaining of increasing shortness of breath not responding to her usual home nebulizers or recentantibiotic therapy. She notes a significant chest pain, but also notes that she has chronic pain syndromes. Her cough has been essentially nonproductive. The history is provided by the patient. Shortness of Breath This is a recurrent problem. The average episode lasts 6 days. The problem occurs continuously.The problem has been gradually worsening. Associated symptoms include a fever (Tactile), cough, wheezing, chest pain and claudication. Pertinent negatives include no headaches, no coryza, no sputum production, no hemoptysis, no PND, no vomiting and no leg swelling. Treatments tried: Patient is on multiple chronic respiratory drugs, prednisone at 40 mg per day and a recent prescription for Z.mycin. Thetreatment provided no relief. She has had prior hospitalizations. She has had prior ED visits. She has had no prior ICU admissions. Associated medical issues include COPD and chronic lung disease. Associated medical issues do not include CAD. Review of Systems Constitutional: Positive for fever (Tactile). HENT: Negative. Eyes: Negative. Respiratory: Positive for cough, shortness of breath and wheezing. Negative for hemoptysis and sputum production. Cardiovascular: Positive for chest pain and claudication. Negative for palpitations, leg swelling and PND. Gastrointestinal: Negative. Negative for vomiting. Genitourinary: Negative. Musculoskeletal: Positive for back pain (chronic). Neurological: Positive for weakness. Negative for headaches. Hematological: Negative. Psychiatric/Behavioral: Positive for dysphoric mood. Past Medical History Diagnosis Date ??? UTI [...] Ankle fracture surgery 04/01/10 left ankle ORIF [facility] ??? Cyst incision and [...] Never Used ??? Alcohol Use: Yes rarely Family History Problem Relation Age of [...] Degen Neg Hx ??? Blindness Neg Hx Vital Signs Temp: 36.3 ??C (97.3 ??F) Temp src: Oral Pulse: 72 Resp: 16 SpO2: 93 % SpCO: 0 % BP: 120/59 mmHg BP Device: BP Machine Patient Position: Sitting BP Cuff Location: Right arm O2 Flow Rate (L/min): 2 l/min O2 Device: Nasal cannula Physical Exam Nursing note and vitals reviewed. Constitutional: She is oriented to person, place, and time. She appears well- developed and well-nourished. Woman with mild tachypnea and who appears older than stated age HENT: Head: Normocephalic and atraumatic. Eyes: EOM are normal. Pupils are equal, round, and reactive to light. Neck: Normal range of motion. Cardiovascular: Normal rate and normal heart sounds. Pulmonary/Chest: She has wheezes. She has no rales. She exhibits no tenderness. Mildly increased work of breathing Abdominal: Soft. Bowel sounds are normal. Musculoskeletal: Normal range of motion. She exhibits no edema and no tenderness. Neurological: She is alert and oriented to person, place, and time. Skin: Skin is warm and dry. CHEST PA AND LATERAL Final result not shown here.: Radiology orders: CHEST PA AND LATERAL Imaging Results CHEST PA AND LATERAL (Final result) Result time:02/26/13 1128 Final result Narrative: CHEST PA AND LATERAL 02/26/2013 11:07 AM Clinical History/Comments: SHORTNESS OF BREATH Comparison: 04/05/2012. Findings: 2 views of the chest were performed. They demonstrate a bat wing appearance of interstitial and alveolar opacities emanating from the hazel. The cardiac silhouette is upper limits of normal. There do not appear to be pleural effusions. There is slight prominence of the interlobular fissures. Given the lack of curly B-lines, pleural fluid and cardiomegaly, the above process could potentially reflect an atypical bilateral pneumonia. Impression: Findings which could represent a bilateral atypical bronchopneumonia versus pulmonary edema. Conversely, in the appropriate clinical setting this may reflect pulmonary edema superimposed on pneumonia. Clinical correlation is recommended. Preliminary result Narrative: PRELIMINARY REPORT CHEST PA AND LATERAL 02/26/2013 11:07 AM Clinical History/Comments: SHORTNESS OF BREATH Comparison: 04/05/2012. Findings: 2 views of the chest were performed. They demonstrate a bat wing appearance of interstitial and alveolar opacities emanating from the hazel. The cardiac silhouette is upper limits of normal. There do not appear to be pleural effusions. There is slight prominence of the interlobular fissures. Given the lack of curly B-lines, pleural fluid and cardiomegaly, the above process could potentially reflect an atypical bilateral pneumonia. Impression: Findings which could represent a bilateral atypical bronchopneumonia versus pulmonary edema. Conversely, in the appropriate clinical setting this may reflect pulmonary edema superimposed on pneumonia. Clinical correlation is recommended. Procedures ED Course: A medical screening exam was performed. Chest x-ray with a diffuse interstitial pattern likely consistent with atypical pneumonia. Labs show white count 12.5 but otherwise without acute findings. Patient did not improve with Solu-Medrol and multiple breathing treatments and at this time plan is hospital Disposition: Admitted The patient's pain was managed to an adequate level weighing risk vs. benefit of further medications. Upon departure from the Emergency Department, the patient's pain was 0 on a zero to ten scale. Condition at departure from the Emergency Department: Stable Discharge Prescriptions New Prescriptions No Discharge Prescriptions for this patient MDM Number of Diagnoses or Management Options Asthma: Chronic back pain: Depression: Left knee pain: Pneumonia: Restless legs syndrome: Seasonal allergic rhinitis: Diagnosis management comments: 4 Amount and/or Complexity of Data Reviewed Clinical lab tests: reviewed Tests in the radiology section of CPT??: ordered and reviewed Discussion of test results with the performing providers: yes Discuss the patient with other providers: yes Final diagnoses: Pneumonia PCP: Jean Munoz MD 02/26/2013 16:22 * Tiburcio Meadows RN - 02/26/2013 1520 EDT Pt waiting for possible admission/eval from admit team * Tiburcio Meadows RN - 02/26/[address] Chun has been in to update pt for plan of care. * Tiburcio Meadows RN - 02/26/2013 1342 EDT Waiting for update by ED provider * Tiburcio Meadows RN - 02/26/2013 1307 EDT Patient is resting quietly with no complaints. Waiting for plan of care * Tiburcio Meadows RN - 02/26/2013 1252 EDT Pt still seems SOB without improvement post inhalers * Siena Rivera RN - 02/26/2013 1225 EDT Patient ambulated to BR with steady independent gait. Patient began to chatter and have SOB on return to room. ABX, and nebulizer started per order. Patient remains on pulse ox monitoring. * Tiburcio Meadows RN - 02/26/2013 1051 EDT Pt on phone talking full sentences * Aline Bermudez RN - 02/26/2013 1025 EDT Pt reports chronic back and leg pain. documented in this encounter Miscellaneous Notes * Scanned Note-Null - ASSISTANT EDITOR, SCAN 2 - 03/07/2013 1418 EDT * Scanned Note-Null - ASSISTANT EDITOR, SCAN 2 - 03/07/2013 1418 EDT * Miscellaneous - ASSISTANT EDITOR, SCAN 2 - 03/01/2013 0942 EDT * Plan of Care - Liu Capps RN - 03/01/2013 0128 EDT Problem: PAIN Goal: Patient???s Pain And Discomfort Are Adequately Managed Nursing Pain Note D: At 0000 patient c/o 06/22. Pain located in the Chest. Patient described constant. A: Patient receiving scheduled medications. See MAR. Provided the following non- pharmacologic interventions: heat. R: Patient now reports pain 510. Verbalized that pain is well controlled. Will continue to monitor and adjust interventions as necessary. Liu Capps RN 03/01/2013 1:27 * Plan of Care - Inna Sanchez RN - 02/28/2013 1318 EDT Problem: OXYGENATION/REPIRATORY FUNCTION Goal: Patient Will Maintain Patent Airway Intervention: Position patient for maximum ventilatory efficiency Data: patient with dyspnea with exertion audible wheezes o2 on @ 2.5l sAT 9% Action: o2 home evaluation done patient ambulated Response:tolerating activity with rest periods will continue to monitor Inna Sanchez RN 02/28/2013 13:15 * Plan of Care - Adrianne Lincoln RN - 02/28/2013 0136 EDT Problem: OXYGENATION/REPIRATORY FUNCTION Goal: Patient Will Maintain Patent Airway Intervention: Assess breath sounds in all lobes Data: 2029 Pt experiencing substernal chest pain/discomfort, intermittent (but not presently) diaphoresis. Denies radiation of pain. Pt states she once had a cardiac workup involving a nonstress testmany years ago. K noted to be 3.3 Action: Assessed, VS taken, notified family medicine who arrived at bedside to further assess respiratory vs. Cardiac pain. Completed one-time K replacement order (see mar). Response: No EKG or cardiac markers ordered at this time. Pt experiencing relief via pain meds, lidocaine patch, and ice pack. VSS. Call alvarado within reach. Adrianne Lincoln RN 02/28/2013 1:34 * Plan of Care - Jason. Awilda Pizano RN - 02/27/2013 0844 EDT Problem: OXYGENATION/REPIRATORY FUNCTION Goal: Patient Will Maintain Patent Airway Outcome: Ongoing Data: Patient awake, resting in bed, currently on 2 1/2 L NC. Patient with diminished lung sounds with expiratory wheezes. Action: assessment completed. Neb treatment administered by RT. Fan on patient per request to promote aeration. Response: Will continue to monitor patient respiratory needs. Call light within reach. Pranav Pizano RN 02/27/2013 8:43 * Plan of Care - Adrianne Lincoln RN - 02/27/2013 0422 EDT Problem: PAIN Goal: Patient???s Pain And Discomfort Are Adequately Managed Intervention: Assess pain level Pain is to be assessed: admission, every shift, prior to medication administration, within two hours after pain medication administration, before transfer or discharge and every two hours while on ADMISSIONS DEAN or epidural. Data: Pt admitted due to community acquired PNA and COPD exacerbation. On home O2 for sleep, now 2.5L via nasal cannula to maintain sat. Expiratory wheeze, dyspneic with exertion. Action: Assisted with ADLs, assessed resp status and chest pain (associated with breath, no radiation, n/v). Medicated for pain. Response: continue to monitor Adrianne Lincoln RN 02/27/2013 4:20 * Plan of Care - Bisi Espana RN - 02/26/2013 1836 EDT Problem: HOSPITAL ORIENTATION/SAFETY Goal: Oriented To Hospital Environment Data: Pt admitted to M620 Bed 1 from ED. Report received. Action: Pt oriented to room and plan of care. Assessment completed. Response: Pt verbalizes understanding of plan of care. VSS, afebrile. Continue to monitor. Bisi Espana RN 02/26/2013 18:34 * Scanned Note-Null - ASSISTANT EDITOR, SCAN 2 - 02/26/2013 1726 EDT * Scanned Note-Null - ASSISTANT EDITOR, SCAN 2 - 02/26/2013 1726 EDT documented in this encounter Plan of Treatment Upcoming Encounters Date Type Department Care Team (Late st Contact Info) Description 06/29/2024 14:15 EDT Office Visit [facility] [address], [place] [phone] Jean Munoz MD [address] [place] [phone] Scheduled Referrals Name Type Priority Associated Diagnoses Orde r Schedule FROM IP - CONSULT HOME HEALTH SERVICES Outpatient Referral Routine Asthma Pneumonia Tobacco dependence syndrome Depression Ordered: 03/01/2013 documented as of this encounter Procedures Procedure Name Priority Date/Time Associated Diagnosis Comments DIFFERENTIAL Routine 03/01/2013 6:38 EDT COMPLETE BLOOD COUNT Routine 03/01/2013 6:38 EDT COMPLETE BLOOD COUNT AND DIFFERENTIAL Routine 03/01/2013 6:38 EDT BUN Routine 03/01/2013 6:38 EDT CREATININE Routine 03/01/2013 6:38 EDT ELECTROLYTES Routine 03/01/2013 6:38 EDT DRY POWDERED OR METERED DOSE INHALER Routine 03/01/2013 0:10 EDT NEBULIZER TX INTERMITTENT Routine 03/01/2013 0:10 EDT DIFFERENTIAL Routine 02/28/2013 6:28 EDT COMPLETE BLOOD COUNT Routine 02/28/2013 6:28 EDT COMPLETE BLOOD COUNT AND DIFFERENTIAL Routine 02/28/2013 6:28 EDT BUN Routine 02/28/2013 6:28 EDT CREATININE Routine 02/28/2013 6:28 EDT ELECTROLYTES Routine 02/28/2013 6:28 EDT DRY POWDERED OR METERED DOSE INHALER Routine 02/28/2013 0:11 EDT DRY POWDERED OR METERED DOSE INHALER Routine 02/28/2013 0:11 EDT AIRWAY CLEARANCE THERAPY Routine 02/28/2013 0:11 EDT NEBULIZER TX INTERMITTENT Routine 02/28/2013 0:11 EDT NEBULIZER TX INTERMITTENT Routine 02/28/2013 0:11 EDT NEBULIZER TX INTERMITTENT Routine 02/28/2013 0:11 EDT NEBULIZER TX INTERMITTENT Routine 02/28/2013 0:11 EDT INCENTIVE SPIROMETRY RT Routine 02/28/2013 0:11 EDT NEBULIZER TX INTERMITTENT Routine 02/27/2013 7:55 EDT NEBULIZER TX INTERMITTENT Routine 02/27/2013 7:55 EDT NEBULIZER TX INTERMITTENT Routine 02/27/2013 7:55 EDT SCREENING GLUCOSE Routine 02/27/2013 5:5 9 EDT DIFFERENTIAL Routine 02/27/2013 5:59 EDT COMPLETE BLOOD COUNT Routine 02/27/2013 5:59 EDT COMPLETE BLOOD COUNT AND DIFFERENTIAL Routine 02/27/2013 5:59 EDT BUN Routine 02/27/2013 5:59 EDT CREATININE Routine 02/27/2013 5:59 EDT ELECTROLYTES Routine 02/27/2013 5:59 EDT DRY POWDERED OR METERED DOSE INHALER Routine 02/27/2013 0:11 EDT DRY POWDERED OR METERED DOSE INHALER Routine 02/27/2013 0:11 EDT NEBULIZER TX INTERMITTENT Routine 02/27/2013 0:11 EDT NEBULIZER TX INTERMITTENT Routine 02/27/2013 0:11 EDT NEBULIZER TX INTERMITTENT Routine 02/26/2013 21:15 EDT STREPTOCOCCUS PNEUMONIAE ANTIGEN, URINE Routine 02/26/2013 20:04 EDT LEGIONELLA ANTIGEN DETECTION, URINE Routine 02/26/2013 20:04 EDT DRY POWDERED OR METERED DOSE INHALER Routine 02/26/2013 18:41 EDT NEBULIZER TX INTERMITTENT Routine 02/26/2013 18:41 EDT ED/URGENT CARE ADD-ON STAT 02/26/2013 11:39 EDT DIFFERENTIAL Routine 02/26/2013 11:15 EDT COMPLETE BLOOD COUNT Routine 02/26/2013 11:15 EDT COMPLETE BLOOD COUNT AND DIFFERENTIAL STAT 02/26/2013 11:15 EDT BUN STAT 02/26/2013 11:15 EDT NT PRO BNP Routine 02/26/2013 11:15 EDT CREATININE STAT 02/26/2013 11:15 EDT ELECTROLYTES STAT 02/26/2013 11:15 EDT CHEST PA AND LATERAL STAT 02/26/2013 11:07 EDT documented in this encounter Results * DIFFERENTIAL (03/01/2013 6:38 EDT) % Neutrophils 66.8 45.5 - 79.7 % [facility] % Lymphocytes 25.0 15.0 - 46.8 % [facility] % Monocytes 7.1 1.8 - 12.0 % [facility] % Eosinophils 0.8 0.6 - 6.9 % [facility] % Basophils 0.3 0.2 - 1.4 % [facility] ABS Neutrophils 5.76 2.20 - 8.85 K/cmm [facility] ABS Lymphs 2.16 1.09 - 3.30 K/cmm [facility] Monocytes 0.61 0.1 - 0.8 K/cmm [facility] ABS Eosinophils 0.07 0.03 - 0.61 K/cmm [facility] ABS Basophils 0.02 0.01 - 0.11 K/cmm [facility] Type of Diff: Automated [facility] 03/01/2013 6:38 EDT 03/01/2013 7:04 EDT Marie Caban MD HEMATOLOGY & PF4 ORDERABLES Performing Organization Address [facility] de Phone Number [facility] [address] [place] [address] * (ABNORMAL) HEMAGRAM (03/01/2013 6:38 EDT) WBC 8.62 4.0 - 12.4 K/cmm [facility] RBC 3.55(L) 3.86 - 5.04 M/cmm [facility] Hemoglobin 11.3(L) 11.6 - 15.2 gm/dl [facility] HCT 32.9(L) 34.9 - 44.4 % [facility] MCV 93 81 - 98 fl [facility] MCH 31.7 26.7 - 33.3 pg [facility] MCHC 34.2 32.1 - 35.9 gm/dl [facility] PLT 322(H) 141 - 320 K/cmm [facility] RDW-CV 14.3 11.7 - 14.6 % [facility] 03/01/2013 6:38 EDT 03/01/2013 7:04 EDT Marie Caban MD HEMATOLOGY & PF4 ORDERABLES Performing Organization Address [facility] Co de Phone Number [facility] [address] [place] [address] * CREATININE (03/01/2013 6:38 EDT) Creatinine 0.61 0.52 - 1.04 mg/dl [facility] GFR, Calculated >60 >60 ml/min/1.7 3m2 [facility] Blood specimen (specimen) 03/01/2013 6:38 EDT 03/01/2013 7:04 EDT Marie Caban MD CHEMISTRY & BLOOD GAS ORDERABLES Performing Organization Address [facility] de Phone Number [facility] [address] [place] [address] * BUN (03/01/2013 6:38 EDT) BUN 10 10 - 26 mg/dl [facility] Blood specimen (specimen) 03/01/2013 6:38 EDT 03/01/2013 7:04 EDT Marie Caban MD CHEMISTRY & BLOOD GAS ORDERABLES Performing Organization Address [facility] Phone Number [facility] [address] [place] [address] * ELECTROLYTES (03/01/2013 6:38 EDT) Sodium 144 136 - 145 mEq/L [facility] Potassium 3.5 3.5 - 5.0 mEq/L [facility] Chloride 106 96 - 110 mEq/L [facility] CO2 30 24 - 32 mEq/L [facility] Blood specimen (specimen) 03/01/2013 6:38 EDT 03/01/2013 7:04 EDT Marie Caban MD CHEMISTRY & BLOOD GAS ORDERABLES Performing Organization Address [facility] de Phone Number [facility] [address] [place] [address] * DIFFERENTIAL (02/28/2013 6:28 EDT) % Neutrophils 71.4 45.5 - 79.7 % [facility] % Lymphocytes 21.2 15.0 - 46.8 % [facility] % Monocytes 6.3 1.8 - 12.0 % [facility] % Eosinophils 0.9 0.6 - 6.9 % [facility] % Basophils 0.2 0.2 - 1.4 % [facility] Neutrophils 7.32 2.20 - 8.85 K/cmm [facility] ABS Lymphs 2.18 1.09 - 3.30 K/cmm [facility] ABS Monocytes 0.65 0.1 - 0.8 K/cmm [facility] Eosinophils 0.09 0.03 - 0.61 K/cmm [facility] Basophils 0.02 0.01 - 0.11 K/cmm [facility] Type of Diff: Automated [facility] 02/28/2013 6:28 EDT 02/28/2013 6:49 EDT Marie Caban MD HEMATOLOGY & PF4 ORDERABLES Performing Organization Address [facility] Co de Phone Number [facility] [address] [place] [address] * (ABNORMAL) HEMAGRAM (02/28/2013 6:28 EDT) WBC 10.26 4.0 - 12.4 K/cmm [facility] RBC 3.46(L) 3.86 - 5.04 M/cmm [facility] Hemoglobin 11.0(L) 11.6 - 15.2 gm/dl [facility] HCT 31.7(L) 34.9 - 44.4 % [facility] MCV 91 81 - 98 fl [facility] MCH 31.9 26.7 - 33.3 pg [facility] MCHC 34.8 32.1 - 35.9 gm/dl [facility] PLT 311 141 - 320 K/cmm [facility] RDW-CV 14.0 11.7 - 14.6 % [facility] 02/28/2013 6:28 EDT 02/28/2013 6:49 EDT Marie Caban MD HEMATOLOGY & PF4 ORDERABLES [facility] [address] [place] [address] * (ABNORMAL) CREATININE (02/28/2013 6:28 EDT) Creatinine 0.50(L) 0.52 - 1.04 mg/dl [facility] GFR, Calculated >60 >60 ml/min/1.7 3m2 [facility] Blood specimen (specimen) 02/28/2013 6:28 EDT 02/28/2013 6:49 EDT Marie Caban MD CHEMISTRY & BLOOD GAS ORDERABLES Performing Organization Address [facility] Co de Phone Number [facility] [address] [place] [address] * (ABNORMAL) BUN (02/28/2013 6:28 EDT) BUN 8(L) 10 - 26 mg/dl [facility] Blood specimen (specimen) 02/28/2013 6:28 EDT 02/28/2013 6:49 EDT Marie Caban MD CHEMISTRY & BLOOD GAS ORDERABLES Performing Organization Address [facility] Co de Phone Number [facility] [address] [place] [address] * (ABNORMAL) ELECTROLYTES (02/28/2013 6:28 EDT) Sodium 145 136 - 145 mEq/L [facility] Potassium 3.2(L) 3.5 - 5.0 mEq/L [facility] Chloride 108 96 - 110 mEq/L [facility] CO2 28 24 - 32 mEq/L [facility] Blood specimen (specimen) 02/28/2013 6:28 EDT 02/28/2013 6:49 EDT Marie Caban MD CHEMISTRY & BLOOD GAS ORDERABLES Performing Organization Address [facility] Co de Phone Number [facility] [address] [place] [address] * (ABNORMAL) DIFFERENTIAL (02/27/2013 5:59 EDT) Neutrophils 80.0(H) 45.5 - 79.7 % [facility] Lymphocytes 15.0 15.0 - 46.8 % [facility] Monocytes 5.0 1.8 - 12.0 % [facility] ABS Neutrophils 7.29 2.20 - 8.85 K/cmm [facility] ABS Lymphs 1.37 1.09 - 3.30 K/cmm [facility] Monocytes 0.46 0.1 - 0.8 K/cmm [facility] RBC Morphology 1+ [facility] Comment: Poikilocytosis 1+ Ovalocytes 1+ Target cells 1+ Polychromasia 1+ Anisocytosis WBC Morphology 1+ [facility] Comment:Vacuolization Type of Diff: Manual [facility] 02/27/2013 5:59 EDT 02/27/2013 6:32 EDT Marie Caban MD HEMATOLOGY & PF4 ORDERABLES [facility] [address] [place] [address] * (ABNORMAL) HEMAGRAM (02/27/2013 5:59 EDT) WBC 9.12 4.0 - 12.4 K/cmm [facility] RBC 3.48(L) 3.86 - 5.04 M/cmm [facility] Hemoglobin 10.9(L) 11.6 - 15.2 gm/dl [facility] HCT 32.1(L) 34.9 - 44.4 % [facility] MCV 92 81 - 98 fl [facility] MCH 31.2 26.7 - 33.3 pg [facility] MCHC 33.9 32.1 - 35.9 gm/dl [facility] PLT 269 141 - 320 K/cmm [facility] RDW-CV 14.3 11.7 - 14.6 % [facility] 02/27/2013 5:59 EDT 02/27/2013 6:32 EDT Marie Caban MD HEMATOLOGY & PF4 ORDERABLES Performing Organization Address [facility] Phone Number [facility] [address] [place] [address] * (ABNORMAL) CREATININE (02/27/2013 5:59 EDT) Creatinine 0.47(L) 0.52 - 1.04 mg/dl [facility] GFR, Calculated >60 >60 ml/min/1.7 3m2 [facility] Blood specimen (specimen) 02/27/2013 5:59 EDT 02/27/2013 6:32 EDT Marie Caban MD CHEMISTRY & BLOOD GAS ORDERABLES Performing Organization Address [facility] de Phone Number [facility] [address] [place] [address] * (ABNORMAL) BUN (02/27/2013 5:59 EDT) BUN 7(L) 10 - 26 mg/dl [facility] Blood specimen (specimen) 02/27/2013 5:59 EDT 02/27/2013 6:32 EDT Marie Caban MD CHEMISTRY & BLOOD GAS ORDERABLES Performing Organization Address [facility] Phone Number [facility] [address] [place] [address] * (ABNORMAL) ELECTROLYTES (02/27/2013 5:59 EDT) Sodium 144 136 - 145 mEq/L [facility] Potassium 3.3(L) 3.5 - 5.0 mEq/L [facility] Chloride 108 96 - 110 mEq/L [facility] CO2 25 24 - 32 mEq/L [facility] Blood specimen (specimen) 02/27/2013 5:59 EDT 02/27/2013 6:32 EDT Marie Caban MD CHEMISTRY & BLOOD GAS ORDERABLES Performing Organization Address [facility]/ZIP Co de Phone Number [facility] [address] [place] [address] * (ABNORMAL) SCREENING GLUCOSE (02/27/2013 5:59 EDT) Glucose, Screening 160(H) 70 - 100 mg/dl [facility] Blood specimen (specimen) 02/27/2013 5:59 EDT 02/27/2013 6:32 EDT Marie Caban MD CHEMISTRY & BLOOD GAS ORDERABLES Performing Organization Address [facility]/ZIP Co de Phone Number [facility] [address] [place] [address] * STREPTOCOCCUS PNEUMONIAE ANTIGEN, URINE (02/26/2013 20:04 EDT) Specimen Description Urine [facility] Result No Strep pneumoniae antigen detected. [facility] Report Status 02/26/2013 Final [facility] Specimen of unknown material (specimen) URINE / Unknown 02/26/2013 20:04 EDT 02/26/2013 21:26 EDT Marie Caban MD MICROBIOLOGY - GE NERAL ORDERABLES Performing Organization Address [facility] Co de Phone Number [facility] [address] [place] [address] * LEGIONELLA ANTIGEN DETECTION, URINE (02/26/2013 20:04 EDT) Specimen Description Urine [facility] Result No Legionella pneumophila serogroup 1 antigen detected. [facility] Report Status 02/26/2013 Final [facility] Specimen of unknown material (specimen) URINE / Unknown 02/26/2013 20:04 EDT 02/26/2013 21:25 EDT Marie Caban MD MICROBIOLOGY - GE NERAL ORDERABLES Performing Organization Address [facility]/ZIP Co de Phone Number [facility] [address] [place] [address] * ED/WICC ADD-ON (02/26/2013 11:39 EDT) Tests to be added BNP [facility] Number for problems [id number] (ED) [facility] 02/26/2013 11:3 9 EDT 02/26/2013 11:40 EDT Krzysztof Chun MD HEMATOLOGY & PF4 ORDERABLES Performing Organization Address [facility] de Phone Number [facility] [address] [place] [address] * (ABNORMAL) DIFFERENTIAL (02/26/2013 11:15 EDT) Neutrophils 84.0(H) 45.5 - 79.7 % [facility] Lymphocytes 13.0(L) 15.0 - 46.8 % [facility] Monocytes 3.0 1.8 - 12.0 % [facility] ABS Neutrophils 10.85(H) 2.20 - 8.85 K/cmm [facility] Lymphs 1.68 1.09 - 3.30 K/cmm [facility] Monocytes 0.39 0.1 - 0.8 K/cmm [facility] RBC Morphology Normal [facility] Type of Diff: Manual [facility] 02/26/2013 11:1 5 EDT 02/26/2013 11:29 EDT Krzysztof Chun MD HEMATOLOGY & PF4 ORDERABLES Performing Organization Address [facility] de Phone Number [facility] [address] [place] [address] * (ABNORMAL) HEMAGRAM (02/26/2013 11:15 EDT) WBC 12.92(H) 4.0 - 12.4 K/cmm [facility] RBC 3.94 3.86 - 5.04 M/cmm [facility] Hemoglobin 12.1 11.6 - 15.2 gm/dl [facility] HCT 36.3 34.9 - 44.4 % [facility] MCV 92 81 - 98 fl [facility] MCH 30.6 26.7 - 33.3 pg [facility] MCHC 33.2 32.1 - 35.9 gm/dl [facility] PLT 295 141 - 320 K/cmm [facility] RDW-CV 14.5 11.7 - 14.6 % [facility] 02/26/2013 11:1 5 EDT 02/26/2013 11:29 EDT Krzysztof Chun MD HEMATOLOGY & PF4 ORDERABLES Performing Organization Address [facility] Phone Number [facility] [address] [place] [address] * (ABNORMAL) NT PRO BNP (02/26/2013 11:15 EDT) NT Pro BNP 696(H) <300 pg/ml [facility] Comment: Reference Range: NT-proBNP values less than [...] 89% and 72% for acute congestive failure. 02/26/2013 11:1 5 EDT 02/26/2013 11:29 EDT Krzysztof Chun MD CHEMISTRY & BLOOD GAS ORDERABLES Performing Organization Address [facility] Phone Number [facility] [address] [place] [address] * (ABNORMAL) CREATININE (02/26/2013 11:15 EDT) Creatinine 0.49(L) 0.52 - 1.04 mg/dl [facility] GFR, Calculated >60 >60 ml/min/1.7 3m2 [facility] Blood specimen (specimen) 02/26/2013 11:15 EDT 02/26/2013 11:29 EDT Krzysztof Chun MD CHEMISTRY & BLOOD GAS ORDERABLES Performing Organization Address [facility] Phone Number [facility] [address] [place] [address] * (ABNORMAL) BUN (02/26/2013 11:15 EDT) BUN 9(L) 10 - 26 mg/dl [facility] Blood specimen (specimen) 02/26/2013 11:15 EDT 02/26/2013 11:29 EDT Krzysztof Chun MD CHEMISTRY & BLOOD GAS ORDERABLES Performing Organization Address [facility] de Phone Number [facility] [address] [place] [address] * (ABNORMAL) ELECTROLYTES (02/26/2013 11:15 EDT) Sodium 146(H) 136 - 145 mEq/L [facility] Potassium 3.9 3.5 - 5.0 mEq/L [facility] Chloride 110 96 - 110 mEq/L [facility] CO2 27 24 - 32 mEq/L [facility] Blood specimen (specimen) 02/26/2013 11:15 EDT 02/26/2013 11:29 EDT Krzysztof Chun MD CHEMISTRY & BLOOD GAS ORDERABLES Performing Organization Address [facility] de Phone Number [facility] [address] [place] [address] * CHEST PA AND LATERAL (02/26/2013 11:07 EDT) Anatomical Region Laterality Modality Other 02/26/2013 11:0 7 EDT 02/26/2013 11:28 EDT Narrative 02/26/2013 11:28 EDT CHEST PA AND LATERAL ??02/26/2013 11:07 AM Clinical History/Comments: SHORTNESS OF BREATH Comparison: 04/05/2012. Findings: 2 views of the chest were performed. They demonstrate a bat wing appearance of interstitial and alveolar opacities emanating from the hazel. The cardiac silhouette is upper limits of normal. There do not appear to be pleural effusions. There is slight prominence of the interlobular fissures. Given the lack of curly B-lines, pleural fluid and cardiomegaly, the above process could potentially reflect an atypical bilateral pneumonia. Impression: Findings which could represent a bilateral atypical bronchopneumonia versus pulmonary edema. Conversely, in the appropriate clinical setting this may reflect pulmonary edema superimposed on pneumonia. Clinical correlation is recommended. Procedure Note 02/26/2013 CHEST PA AND LATERAL 02/26/2013 11:07 AM Clinical History/Comments: SHORTNESS OF BREATH Comparison: 04/05/2012. Findings: 2 views of the chest were performed. They demonstrate a bat wing appearance of interstitial and alveolar opacities emanating from the hazel. The cardiac silhouette is upper limits of normal. There do not appear to be pleural effusions. There is slight prominence of the interlobular fissures. Given the lack of curly B-lines, pleural fluid and cardiomegaly, the above process could potentially reflect an atypical bilateral pneumonia. Impression: Findings which could represent a bilateral atypical bronchopneumonia versus pulmonary edema. Conversely, in the appropriate clinical setting this may reflect pulmonary edema superimposed on pneumonia. Clinical correlation is recommended. Krzysztof Chun MD IMG DIAGNOSTIC IM AGING ORDERABLES documented in this encounter Visit Diagnoses Diagnosis Asthma- Primary Unspecified asthma Left knee pain Pain in joint, lower leg Seasonal allergic rhinitis Allergic rhinitis, cause unspecified Depression Depressive disorder, not elsewhere classified Chronic back pain Backache, unspecified Restless legs syndrome Restless legs syndrome (RLS) Pneumonia Pneumonia, organism unspecified Tobacco dependence syndrome Tobacco use disorder Pneumonia Pneumonia, organism unspecified Screening for osteoporosis- Primary Special screening [...] Date Dose Rate Site acetaminophen (TYLENOL) tablet 650 mg 650 mg, oral, EVERY 6 HOURS PRN, Starting on 02/26/13 at 1723, Until 03/01/13 at 1505, Pain, STAT Given 03/01/2013 12:23 EDT 650 mg Given 02/28/2013 6:05 EDT 650 mg Given 02/27/2013 23:26 EDT 650 mg albuterol (PROVENTIL) nebulizer solution 2.5 mg 2.5 mg, nebulization, EVERY 4 HOURS PRN, Starting on Wed02/26/13 at 1845, Until Wed02/27/13 at 0021, Wheezing, STAT Given 02/26/2013 20:20 EDT 2.5 mg albuterol (PROVENTIL) nebulizer solution 2.5 mg 2.5 mg, nebulization, EVERY 2 HOURS PRN, Starting on Wed02/27/13 at 0030, Until Wed03/01/13 at 1505, Wheezing, STAT Given 02/27/2013 10:38 EDT 2.5 mg azithromycin (ZITHROMAX) tablet 250 mg 250 mg, oral, DAILY, 2 doses, First dose on Wed02/27/13 at 0900, Last dose on Wed02/28/13 at 0900, STAT Given 02/27/2013 8:20 EDT 250 mg cyclosporine (RESTASIS) 0.05 % ophthalmic emulsion 1 Drop 1 Drop, both eyes, 4 TIMES DAILY, First dose on Wed02/26/13 at 2100, Until Discontinued, STAT Given 03/01/2013 10:57 E DT 1 Drop Given 02/28/2013 21:09 EDT 1 Drop Given 02/28/2013 18:31 EDT 1 Drop dextrose 5 %-0.45 % sodium chloride infusion at 125 mL/hr, intravenous, CONTINUOUS, Starting on Wed02/26/13 at 1745, Until Wed03/01/13 at 1505, STAT New Bag 02/26/2013 18:07 EDT 125 mL/hr doxycycline (VIBRA-TABS) tablet 100 mg 100 mg, oral, DAILY, 7 doses, First dose on Wed02/27/13 at 1815, Last dose on Wed03/05/13 at 0900, Routine Given 02/28/2013 8:35 EDT 100 mg Given 02/27/2013 18:47 EDT 100 mg enoxaparin (LOVENOX) injection 40 mg 40 mg, subcutaneous, DAILY, First dose on Wed02/26/13 at 1745, Until Discontinued, STAT Given 03/01/2013 10:57 EDT 40 m g Given 02/28/2013 8:36 EDT 40 mg Given 02/27/2013 8:20 EDT 40 mg fluticasone-salmeterol (ADVAIR HFA) 230-21 mcg/actuation inhaler 2 Puff 2 Puff, inhalation, 2 TIMES DAILY, First dose on Wed02/26/13 at 2100, Until Discontinued, STAT Given 03/01/2013 8:27 EDT 2 Puffs Given by Other 02/28/2013 9:00 EDT 2 Puffs Given 02/28/2013 7:49 EDT 2 Puffs HYDROcodone-acetaminophen (LORTAB) 5-500 mg tablet 1 Tab 1 Tablet, oral, EVERY 6 HOURS PRN, Starting on Wed02/26/13 at 1723, Until Wed03/01/13 at 1505, Pain, STAT Given 03/01/2013 12:23 EDT 1 Tablet Given 03/01/2013 6:05 EDT 1 Tablet Given 03/01/2013 0:02 EDT 1 Tablet HYDROcodone-acetaminophen (LORTAB) 5-500 mg tablet 2 Tab 2 Tablet, oral, NOW X1, 1 dose, On Wed02/26/13 at 1300, STAT Given 02/26/2013 13:08 EDT 2 Tablets hydroxypropyl methylcellulose (ISOPTO TEARS) 0.5 % ophthalmic solution 1 Drop 1 Drop, both eyes, 5 TIMES DAILY, First dose on Wed02/26/13 at 1800, Until Discontinued, STAT Given 03/01/2013 12:23 EDT 1 Drop Given 02/28/2013 22:04 EDT 1 Drop Given 02/28/2013 19:18 EDT 1 Drop ipratropium-albuterol (DUONEB) 0.5 mg-3 mg(2.5 mg base)/3 mL nebulizer solution 3 mL 3 mL, nebulization, NOW X1, 1 dose, On Wed02/26/13 at 1115, STAT Given 02/26/2013 11:30 EDT 3 mL ipratropium-albuterol (DUONEB) 0.5 mg-3 mg(2.5 mg base)/3 mL nebulizer solution 3 mL 3 mL, nebulization, NOW X1, 1 dose, On Wed02/26/13 at 1230, STAT Given 02/26/2013 12:25 EDT 3 mL ipratropium-albuterol (DUONEB) 0.5 mg-3 mg(2.5 mg base)/3 mL nebulizer solution 3 mL 3 mL, nebulization, EVERY 4 HOURS, First dose (after last modification) on Wed02/26/13 at 2145, Until Discontinued, STAT Given 02/27/2013 7:43 EDT 3 mL Given 02/27/2013 0:16 EDT 3 mL ipratropium-albuterol (DUONEB) 0.5 mg-3 mg(2.5 mg base)/3 mL nebulizer solution 3 mL 3 mL, nebulization, 4 TIMES DAILY, First dose (after last modification) on Wed02/27/13 at 1200, Until Discontinued, STAT Given 03/01/2013 8:27 EDT 3 mL Given 02/28/2013 16:03 EDT 3 mL Given 02/28/2013 12:05 EDT 3 mL levofloxacin (LEVAQUIN) IVPB 500 mg 500 mg, intravenous, Administer over 1 Hours, Once (Without Time Specified), 1 dose, Starting on Wed02/26/13 at 1230, Until Wed02/26/13 at 1325, STAT Given 02/26/2013 12:25 EDT 500 mg levofloxacin (LEVAQUIN) tablet 500 mg 500 mg, oral, DAILY, 6 doses, First dose on Wed02/27/13 at 0900, Last dose on Wed03/04/13 at 0900, STAT Given 03/01/2013 10:58 EDT 500 mg Given 02/28/2013 8:35 EDT 500 mg Given 02/27/2013 8:19 EDT 500 mg lidocaine (XYLOCAINE) 2 % viscous solution 15 mL 15 mL, oral, NOW X1, 1 dose, On Wed03/01/13 at 0000, Routine Given 02/28/2013 23:51 EDT 15 mL lidocaine 5 % (LIDODERM) patch 1 Patch 1 Patch, transdermal, Administer over 12 Hours, DAILY PRN, Starting on Wed02/27/13 at 2132, Until Wed03/01/13 at 1505, Routine Patch Applied 02/28/2013 16:24 EDT 1 Patch Other Given by Other 02/27/2013 23:24 EDT 1 Patch Other methylPREDNISolone sodium SUCCINATE (SOLU-MEDROL) injection 125 mg 125 mg, intravenous, NOW X1, 1 dose, On Wed02/26/13 at 1115, STAT Given 02/26/2013 11:30 EDT 125 mg mometasone (NASONEX) 50 mcg/actuation nasal spray 2 [place] 2 [place], nasal, DAILY, First dose on 02/26/13 at 1745, Until Discontinued, STAT Given 03/01/2013 10:58 EDT 2 Sp rays Given 02/28/2013 8:36 EDT 2 Sprays Given 02/27/2013 8:20 EDT 2 Sprays montelukast (SINGULAIR) tablet 10 mg 10 mg, oral, DAILY, First dose on 02/26/13 at 1745, Until Discontinued, STAT Given 03/01/2013 10:57 EDT 10 mg Given 02/28/2013 8:35 EDT 10 mg Given 02/27/2013 8:20 EDT 10 mg nortriptyline (PAMELOR) capsule 75 mg 75 mg, oral, AT BEDTIME, First dose on Wed02/26/13 at 2100, Until Discontinued, STAT Given 02/28/2013 20:20 EDT 75 m g Given 02/27/2013 20:05 EDT 75 mg Given 02/26/2013 20:30 EDT 75 mg omeprazole (PRILOSEC) capsule 40 mg 40 mg, oral, DAILY, First dose on Wed02/27/13 at 0900, Until Discontinued, STAT Given 03/01/2013 10:57 EDT 40 mg Given 02/28/2013 8:35 EDT 40 mg Given 02/27/2013 8:20 EDT 40 mg potassium chloride (KLOR-CON) packet 20 mEq 20 mEq, oral, Once (Without Time Specified), 1 dose, Starting on Wed02/27/13 at 1335, Until Wed02/27/13 at 2006, Routine Given 02/27/2013 20:06 EDT 20 mEq potassium chloride SA (K-DUR, KLOR-CON M20) tablet 40 mEq 40 mEq, oral, NOW X1, 1 dose, On Wed02/28/13 at 1900, Routine Given 02/28/2013 19:16 EDT 40 mEq predniSONE (DELTASONE) tablet 40 mg 40 mg, oral, DAILY, 4 doses, First dose on Wed02/27/13 at 0900, Last dose on Wed03/02/13 at 0900, STAT Given 03/01/2013 10:57 EDT 40 mg Given 02/28/2013 9:24 EDT 40 mg Given 02/27/2013 8:20 EDT 40 mg pregabalin (LYRICA) capsule 150 mg 150 mg, oral, 3 TIMES DAILY, First dose on 02/26/13 at 2100, Until Discontinued, STAT Given 03/01/2013 10:58 EDT 150 mg Given 02/28/2013 20:20 EDT 150 mg Given 02/28/2013 13:38 EDT 150 mg rOPINIRole (REQUIP) tablet 2 mg 2 mg, oral, AT BEDTIME, First dose on 02/26/13 at 2100, Until Discontinued, STAT Given 02/28/2013 20:20 EDT 2 mg Given 02/27/2013 20:04 EDT 2 mg Given 02/26/2013 20:28 EDT 2 mg sertraline (ZOLOFT) tablet 200 mg 200 mg, oral, DAILY, First dose on Wed02/27/13 at 0900, Until Discontinued, STAT Given 03/01/2013 10:57 EDT 200 mg Given 02/28/2013 8:34 EDT 200 mg Given 02/27/2013 8:20 EDT 200 mg sodium chloride (NS) 0.9 % 500 mL BOLUS 500 mL, intravenous, Once (Without Time Specified), 1 dose, Starting on 02/26/13 at 1115, Until 02/26/13 at 1236, STAT Given 02/26/2013 11:29 EDT 500 mL documented in this encounter Discontinued Medications Medication Sig Discontinue Reason Start Date End Da te doxycycline (VIBRA-TABS) 100 mg tablet Take 1 Tab by mouth daily. Therapy completed 10/19/2012 02/26/2013 predniSONE (DELTASONE) 20 mg tablet Take 1 tab orally twice a day for 5 day or until improvement, than taper to 1 once a day for 2 day, than 1/2 for 2 days, than stop. 02/24/2013 03/01/2013 documented as of this encounter Active and Recently Administered Medications Times are shown in EDT. Scheduled Medication Order 02/27/2013 02/28/2013 03/01/2013 aluminum & magnesium hydroxide-simethicone (MYLANTA-DS) 400-400-40 mg/5 mL suspension 15 mL(Linked Group 1) 15 mL, oral, NOW X1, 1 dose, On Wed03/01/13 at 0000, Routine 0129 (Not Given - Provider: Liu Capps RN - Reason: Other - Comment: med linked to oral lidicane) azithromycin (ZITHROMAX) tablet 250 mg (CANCELED) 250 mg, oral, DAILY, 2 doses, First dose on Wed02/27/13 at 0900, Last dose on Wed02/28/13 at 0900, STAT 0820 (Given - Provider: Jason. Awilda Pizano RN) cyclosporine (RESTASIS) 0.05 % ophthalmic emulsion 1 Drop (CANCELED) 1 Drop, both eyes, 4 TIMES DAILY, First dose on Wed02/26/13 at 2100, Until Discontinued, STAT 0820 (Given - Provider: Jason. Awilda Pizano RN)1134 (Given - Provider: Jason. Awilda Pizano RN)1700 (Given - Provider: Jason. Awilda Pizano RN)2009 (Given - Provider: Adrianne Lincoln RN) 0836 (Given - Provider: Inna Sanchez, CHRIS)1100 (Given - Provider: Inna Sanchez, CHRIS)1831 (Given - Provider: Caroline Benoit RN)2109 (Given - Provider: Caroline Benoit RN) 1057 (Given - Provider: Jim Beck, CHRIS)1225 (Not Given - Provider: Jim Beck, CHRIS - Reason: Patient/family refused) doxycycline (VIBRA-TABS) tablet 100 mg (CANCELED) 100 mg, oral, DAILY, 7 doses, First dose on Wed02/27/13 at 1815, Last dose on Wed03/05/13 at 0900, Routine 1847 (Given - Provider: Jason. Awilda Pizano RN) 0835 (Given - Provider: Inna Sanchez RN) enoxaparin (LOVENOX) injection 40 mg (CANCELED) 40 mg, subcutaneous, DAILY, First dose on Wed02/26/13 at 1745, Until Discontinued, STAT 0820 (Given - Provider: Jason. Awilda Pizano RN) 0836 (Given - Provider: Inna Sanchez RN) 1057 (Given - Provider: Jim Beck, CHRIS) fluticasone-salmeterol (ADVAIR HFA) 230-21 mcg/actuation inhaler 2 Puff (CANCELED) 2 Puff, inhalation, 2 TIMES DAILY, First dose on 02/26/13 at 2100, Until Discontinued, STAT 0743 (Given - Provider: Erwin Meyer, RT)0900 (Canceled Entry - Provider: Erwin Meyer RT)2026 (Given - Provider: Aurelia Chamberlain, RT) 0749 (Given - Provider: Bharat Nowak)0900 (Given by Other - Provider: Inna Sanchez RN)2100 (Not Given - Provider: Genesis Rucker RT - Reason: Other) 0827 (Given - Provider: Kamila Wolff, RT) hydroxypropyl methylcellulose (ISOPTO TEARS) 0.5 % ophthalmic solution 1 Drop (CANCELED) 1 Drop, both eyes, 5 TIMES DAILY, First dose on 02/26/13 at 1800, Until Discontinued, STAT 0605 (Given - Provider: Adrianne Lincoln RN)1134 (Given - Provider: Jason. Awilda Pizano RN)1554 (Given - Provider: Jason. Awilda Pizano RN)1750 (Given - Provider: Jason. Awilda Pizano RN)2009 (Given - Provider: Adrianne Lincoln RN) 0605 (Given - Provider: Adrianne Lincoln RN)1200 (Given - Provider: Inna Sanchez RN)1432 (Not Given - Provider: Inna Sanchez RN - Reason: Other)1918 (Given - Provider: Caroline Benoit RN)2204 (Given - Provider: Caroline Benoit RN) 1223 (Given - Provider: Jim Beck RN)1225 (Canceled Entry - Provider: Jim Beck RN) ipratropium-albuterol (DUONEB) 0.5 mg-3 mg(2.5 mg base)/3 mL nebulizer solution 3 mL (CANCELED) 3 mL, nebulization, EVERY 4 HOURS, First dose (after last modification) on 02/26/13 at 2145, Until Discontinued, STAT 0016 (Given - Provider: Radha Natarajan, RT)0338 (Not Given - Provider: Radha Natarajan RT - Reason: Patient/family refused - Comment: pt requested not to be woken up/RN will page if RT needed)0743 (Given - Provider: Erwin Meyer, RT) ipratropium-albuterol (DUONEB) 0.5 mg-3 mg(2.5 mg base)/3 mL nebulizer solution 3 mL (CANCELED) 3 mL, nebulization, 4 TIMES DAILY, First dose (after last modification) on Wed02/27/13 at 1200, Until Discontinued, STAT 1250 (Given - Provider: Erwin Meyer, RT)1706 (Given - Provider: Aurelia Chamberlain, RT)2026 (Given - Provider: Aurelia Chamberlain, RT) 0750 (Given - Provider: Bharat Nowak)1205 (Given - Provider: Bharat Nowak)1603 (Given - Provider: Ese Bautista, RT)2100 (Not Given - Provider: Genesis Rucker, RT - Reason: Other) 0827 (Given - Provider: Kamila Wolff, RT)1200 (Due) levofloxacin (LEVAQUIN) tablet 500 mg 500 mg, oral, DAILY, 6 doses, First dose on Wed02/27/13 at 0900, Last dose on Wed03/04/13 at 0900, STAT 0819 (Given - Provider: Jason. Awilda Pizano RN) 0835 (Given - Provider: Inna Sanchez, CHRIS) 1058 (Given - Provider: Jim Beck, CHRIS) lidocaine (XYLOCAINE) 2 % viscous solution 15 mL (COMPLETED)(Linked Group 1) 15 mL, oral, NOW X1, 1 dose, On Wed03/01/13 at 0000, Routine 2351 (Given - Provider: Liu Capps RN) mometasone (NASONEX) 50 mcg/actuation nasal spray 2 [place] (CANCELED) 2 [place], nasal, DAILY, First dose on Wed02/26/13 at 1745, Until Discontinued, STAT 0820 (Given - Provider: Jason. Awilda Pizano RN) 0836 (Given - Provider: Inna Sanchez, CHRIS) 1058 (Given - Provider: Jim Beck, CHRIS) montelukast (SINGULAIR) tablet 10 mg (CANCELED) 10 mg, oral, DAILY, First dose on Wed02/26/13 at 1745, Until Discontinued, STAT 08 (Given - Provider: Jason. Awilda Pizano, CHRIS) 0835 (Given - Provider: Inna Sanchez, CHRIS) 105 (Given - Provider: Jim Beck, CHRIS) nortriptyline (PAMELOR) capsule 75 mg (CANCELED) 75 mg, oral, AT BEDTIME, First dose on Wed02/26/13 at 2100, Until Discontinued, STAT 2004 (Given - Provider: Adrianne Lincoln RN) 2019 (Given - Provider: Caroline Benoit, CHRIS) omeprazole (PRILOSEC) capsule 40 mg (CANCELED) 40 mg, oral, DAILY, First dose on Wed02/27/13 at 0900, Until Discontinued, STAT 0820 (Given - Provider: Jason. Awilda Pizano RN) 0835 (Given - Provider: Inna Sanchez, CHRIS) 105 (Given - Provider: Jim Beck, CHRIS) potassium chloride (KLOR-CON) packet 20 mEq (COMPLETED) 20 mEq, oral, Once (Without Time Specified), 1 dose, Starting on Wed02/27/13 at 1335, Until Wed02/27/13 at 2006, Routine 2005 (Given - Provider: Adrianne Lincoln RN) potassium chloride SA (K-DUR, KLOR-CON M20) tablet 40 mEq (COMPLETED) 40 mEq, oral, NOW X1, 1 dose, On Wed02/28/13 at 1900, Routine 1916 (Given - Provider: Caroline Benoit, CHRIS) predniSONE (DELTASONE) tablet 40 mg 40 mg, oral, DAILY, 4 doses, First dose on Wed02/27/13 at 0900, Last dose on Wed03/02/13 at 0900, STAT 0820 (Given - Provider: Jason. Awilda Pizano RN) 0924 (Given - Provider: Inna Sanchez, CHRIS) 105 (Given - Provider: Jim Beck, CHRIS) pregabalin (LYRICA) capsule 150 mg (CANCELED) 150 mg, oral, 3 TIMES DAILY, First dose on Wed02/26/13 at 2100, Until Discontinued, STAT 0820 (Given - Provider: Jason. Awilda Pizano RN)1356 (Given - Provider: Jason. Awilda Pizano RN)2005 (Given - Provider: Adrianne Lincoln RN) 0836 (Given - Provider: Inna Sanchez, CHRIS)1338 (Given - Provider: Inna Sanchez, CHRIS)2019 (Given - Provider: Caroline Benoit, RN) 1058 (Given - Provider: Jim Beck, CHRIS) rOPINIRole (REQUIP) tablet 2 mg (CANCELED) 2 mg, oral, AT BEDTIME, First dose on Wed02/26/13 at 2100, Until Discontinued, STAT 2003 (Given - Provider: Adrianne Lincoln RN) 2019 (Given - Provider: Caroline Benoit, CHRIS) sertraline (ZOLOFT) tablet 200 mg (CANCELED) 200 mg, oral, DAILY, First dose on Wed02/27/13 at 0900, Until Discontinued, STAT 0820 (Given - Provider: Jason. Awilda Pizano RN) 0834 (Given - Provider: Inna Sanchez, CHRIS) 1057 (Given - Provider: Jim Beck, CHRIS) PRN Medication Order 02/27/2013 02/28/2013 03/01/2013 acetaminophen (TYLENOL) tablet 650 mg (CANCELED) 650 mg, oral, EVERY 6 HOURS PRN, Starting on 02/26/13 at 1723, Until Wed03/01/13 at 1505, Pain, STAT 2326 (Given - Provider: Adrianne Lincoln RN) 0605 (Given - Provider: Adrianne Lincoln RN) 1223 (Given - Provider: Jim Beck, CHRIS) albuterol (PROVENTIL) nebulizer solution 2.5 mg (CANCELED) 2.5 mg, nebulization, EVERY 2 HOURS PRN, Starting on Wed02/27/13 at 0030, Until Wed03/01/13 at 1505, Wheezing, STAT 1038 (Given - Provider: Erwin Meyer, RT) HYDROcodone-acetaminop hen (LORTAB) 5-500 mg tablet 1 Tab (CANCELED) 1 Tablet, oral, EVERY 6 HOURS PRN, Starting on 02/26/13 at 1723, Until Wed03/01/13 at 1505, Pain, STAT 0010 (Given - Provider: Adrianne Lincoln, CHRIS)0605 (Given - Provider: Adrianne Lincoln, CHRIS)1401 (Given - Provider: Jason. Awilda Pizano, CHRIS)2008 (Given - Provider: Adrianne Lincoln, CHRIS) 0258 (Given - Provider: Adrianne Lincoln, CHRIS)1036 (Given - Provider: Inna Sanchez, CHRIS)1624 (Given - Provider: Caroline Benoit, CHRIS) 0002 (Given - Provider: Liu Capps, CHRIS)0605 (Given - Provider: Liu Capps, RN)1223 (Given - Provider: Jim Beck RN) lidocaine 5 % (LIDODERM) patch 1 Patch (CANCELED) 1 Patch, transdermal, Administer over 12 Hours, DAILY PRN, Starting on Wed02/27/13 at 2132, Until Wed03/01/13 at 1505, Routine 2324 (Given by Other - Provider: Adrianne Lincoln RN - Comment: chest) 1624 (Patch Applied - Provider: Caroline Benoit RN - Comment: chest) 0430 (Patch Removed - Provider: Liu Capps, CHRIS) Linked Groups Order Group 1: lidocaine (XYLOCAINE) 2 % viscous solution 15 mL (COMPLETED)Jump to med 15 mL, oral, NOW X1, 1 dose, On Wed03/01/13 at 0000, Routine And aluminum & magnesium hydroxide-simethicone (MYLANTA-DS) 400-400-40 mg/5 mL suspension 15 mLJump to med 15 mL, oral, NOW X1, 1 dose, On Wed03/01/13 at 0000, Routine documented in this encounter Orders Medications Ordered That Victor Manuel ht Not Have Been Administered Count Last Ordered Date First Ordered Date aluminum & magnesium hydroxi de-simethicone (MYLANTA-DS) 400-400-40 mg/5 mL suspension 15 mL 1 02/28/2013 albuterol (PROVENTIL) nebuli zer solution 2.5 mg 1 02/26/2013 docusate sodium (COLACE) capsule 100 mg 1 0 02/26/2013 ipratropium-albuterol (DUONE B) 0.5 mg-3 mg(2.5 mg base)/3 mL nebulizer solution 3 mL 2 02/26/2013 senna (SENOKOT) tablet 2 Tab 1 02/26/2013 Nursing Count Last Ordered Date First Orde red Date INSERT PERIPHERAL IV 1 02/26/2013 MEASURE WEIGHT 1 02/26/2013 PULSE OXIMETRY 1 02/26/2013 Respiratory Care Count Last Ordered Date First Ordered Date METERED DOSE INHALER 6 03/01/2013 013 NEBULIZER TX INTERMITTENT 12 03/01/2013 AIRWAY CLEARANCE THERAPY 1 02/28/2013 INCENTIVE SPIROMETRY RT 1 02/28/2013 Admission Count Last Ordered Date First Orde red Date STATUS: INPATIENT ACUTE ADMISSION 1 013 Transfer Count Last Ordered Date First Orde red Date NOTIFY PPS OF DISCHARGE COMPLETE 1 03/01/20 13 PPS NOTIFICATION OF PATIENT ARRIVAL ON UNIT 1 02/26/2013 Discharge Count Last Ordered Date First Orde red Date DISCHARGE PATIENT 1 03/01/2013 documented in this encounter Care Teams Representative Personal Service Relationship Specialty Start Date End Date Jean Munoz MD [address] [place] [address] PCP - General 12/31/08 Manny Rizzo MD [address] [place] [address] 04/20/10 documented as of this encounter
--- OUTSIDE RECORDS SUMMARY | 2024-06-10 07:28 | XMS_ITS | Encounter Summary ---
Author Organization [facility] Address [address] [place] [address] Care Team Providers Care Insurance Verify Rep Name Role Phone Jean Munoz MD Primary Care Provider Manny Rizzo MD Unavailable Reason for Visit * Reason Onset Date Comments Orders (Non Pre-visit) 04/12/2013 Encounter Details Date Type Department Care Team (Late st Contact Info) Description 04/12/2013 Telephone [facility] [address] [place] [address] Jean Munoz MD [address] [place] [address] Orders (Non Pre-visit) Social History Tobacco Use Types Packs/Day Years [...] encounter Miscellaneous Notes * Telephone Encounter - Stewart Negro - 04/12/2013 1136 EDT Outgoing call to pt. Discussed that based on O2 sats she does not qualify for oxygen. Discussed that per Dr. Munoz, she should stop using the oxygen, and continue monitoring O2 sats when feeling short of breath and notify Dr. Munoz of any lows 88 or lower. Discussed seeking immediate care forany acute worsening of SOB. Pt verbalizes understanding and will continue monitoring O2. DME order to D/c home O2 per Dr. Munoz faxed to Emelyn at [facility]. Stewart Negro RN * Telephone Encounter - Stewart Negro - 04/12/2013 1055 EDT Outgoing call to pt. Discussed message below from [facility]. She has a home O2 sat monitor and has been checking every time she feels SOB. She reports has trouble during humid times and has been using O2 at night that she reports helps her sleep better. She reports approx 4 times per day she feels SOB with activity and applies O2 for sats in the low 90s. Her lowest sat at home has been 90. Outgoing call to Emelyn at [facility]. She reports this does not qualify her for oxygen. To qualify she would need sats of 88 or less. She would like a discontinuation order faxed to her at [phone]. Routed to Dr. Munoz. Stewart Negro RN * Telephone Encounter - Jean Munoz MD - 04/12/2013 1010 EDT Please call patient to let her know, does she have low O2 sats at home? If yes, please let Emelyn know, perhaps that would qualify * Telephone Encounter - Stewart Negro - 04/12/2013 0950 EDT Outgoing call to Emelyn at [facility]. She states that the results of the 6 minute walk test done in our office didn't have any value less than 96% and indicates this was on room air. Based on this result, pt would not qualify for O2. If this is correct, she would like a call back with an orderto d/c O2. Routed to Dr. Munoz. Setwart Negro, RN * Telephone Encounter - Kavita Mann - 04/12/2013 0941 EDT Emelyn from [facility] called regarding oxygen report received on [facility]- 6 Minute Walk Test done7.29.13. She does not qualify for oxygen. Please call. documented in this encounter Plan of Treatment Upcoming Encounters Date Type Department Care Team (Late st Contact Info) Description 06/29/2024 14:15 EDT Office Visit [facility] [address] [place] [address] Jean Munoz MD [address] [place] [address] documented as of this encounter Visit Diagnoses Diagnosis COPD (chronic obstructive pulmonary disease) ([facility])- Primary Chronic airway obstruction, not elsewhere classified Screening [...] Last Ordered Date First Orde red Date HOME OXYGEN 1 04/12/2013 documented in this encounter Care Teams Insurance Verify Rep Relationship Specialty Start Date End Date Jean Munoz MD [address] [place] [address] PCP - General 12/31/08 Manny Rizzo MD [address] [place] [id number] 04/20/10 documented as of this encounter
--- OUTSIDE RECORDS SUMMARY | 2024-06-10 07:28 | XMS_ITS | Encounter Summary ---
Author Organization [facility] Address [address] [place] [address] Care Team Providers Care Classifying Machine Operator Name Role Phone Jean Munoz MD Primary Care Provider Manny Rizzo MD Unavailable Reason for Visit * Reason Comments Medication Management Asthma periodic wheezing no t persistent, worse with hot humid weather Chronic Obstructive Pulmonary Disease us ing O2 at home 2-3x/day per O2 requirements, needs F/U walk test Gastroesophageal Reflux doing well on Pr ilosec Depression Ankle Injury sprained left ankle last week, coming back from mail box, getting back Knee Pain still with problems, missed F/U with Dr Glynn, has F/U scheduled Sleep Disorder followed by Dr Sanots soler for Ritalin Rx Encounter Details Date Type Department Care Team (Late st Contact Info) Description 04/10/2013 13:45 EDT Office Visit [facility] [address] [place] [address] Jean Munoz MD [address] [place] [address] Asthma (Primary Dx); COPD (chronic obstructive pulmonary disease) (CMS-HCC) (HCC-CMS); Gastroesophageal reflux disease; Depression; Left knee pain; Rosacea Discharge Disposition: Auto Discharge Social History Tobacco [...] Reading Time Taken Comments Blood Pressure 110/64 04/10/2013 1355 EDT Pulse 72 04/10/2013 1355 EDT Temperature 36.8 ??C (98.2 ??F) 04/10/2013 1355 EDT Respiratory Rate 16 04/10/2013 1355 EDT Oxygen Saturation - - Inhaled Oxygen Concentration - - Weight 90 kg (198 lb 8 oz) 04/10/2013 1355 EDT Height 162.6 cm (5' 4) 04/10/2013 1355 EDT Body Mass Index 34.07 04/10/2013 1355 EDT documented in this encounter [...] 28 days. 112 Tab 0 04/10/2013 06/29/2013 HYDROcodone-acetaminophe n (LORTAB) 5-500 mg tabletIndications:Left knee pain Take 1-2 Tabs by mouth every 6 hours as needed for Pain for 28 days. 112 Tab 0 05/08/2013 06/29/2013 HYDROcodone-acetaminophe n (LORTAB) 5-500 mg tabletIndications:Left knee pain Take 1 Tab by mouth every 6 hours as needed for Pain for 28 days. 112 Tab 0 06/05/2013 06/14/2013 omeprazole (PRILOSEC) 40 mg capsuleIndications:Gastr oesophageal reflux disease Take 1 Cap by mouth daily. 180 Cap 2 04/10/2013 12/13/2013 levalbuterol (XOPENEX HFA) 45 mcg/actuation inhalerIndications:Asthm a,COPD (chronic obstructive pulmonary disease) ([facility]) Inhale 1-2 Puffs as directed every 4 hours as needed for Wheezing. 3 Inhaler 2 04/10/2013 06/05/2013 doxycycline (VIBRA-TABS) 100 mg tabletIndications:Rosace a Take 1 Tab by mouth daily. 90 Tab 2 04/10/2013 12/13/2013 sertraline (ZOLOFT) 100 mg tabletIndications:Depres meño Take 2 Tabs by mouth daily. 180 Tab 2 04/10/2013 12/13/2013 montelukast (SINGULAIR) 10 mg tabletIndications:Asthma Take 1 Tab by mouth daily. 90 Each 2 04/10/2013 12/13/2013 documented in this encounter Discharge Disposition Disposition Code Departure Means Destination Auto Discharge documented in this encounter Progress Notes * Jean Munoz MD - 04/10/2013 3791 EDT Subjective: Patient ID: Liset Viera is an 52 y.o. female. Chief Complaint Patient presents with ??? Medication Management ??? Asthma periodic wheezing not persistent, worse with hot humid weather ??? Chronic Obstructive Pulmonary Disease using O2 at home 2-3x/day per O2 requirements, needs F/U walk test ??? Gastroesophageal Reflux doing well on Prilosec ??? Depression ??? Ankle Injury sprained left ankle last week, coming back from mail box, getting back ??? Knee Pain still with problems, missed F/U with Dr Glynn, has F/U scheduled ??? Sleep Disorder followed by Dr Bacon for Ritalin Rx HPI As above Patient Active Problem List Diagnoses ??? Severe [...] to Visit Medication Sig Dispense Refill ??? methylphenidate (RITALIN;METHYLIN) 20 mg tablet Take 2 Tabs by mouth daily. 60 Tab 0 ??? montelukast (SINGULAIR) 10 mg tablet Take 1 Tab by mouth daily. 90 Each 2 ??? sertraline (ZOLOFT) 100 mg tablet Take 2 Tabs by mouth daily. 180 Tab 2 ??? levalbuterol (XOPENEX HFA) 45 mcg/actuation inhaler Inhale 1-2 Puffs as directed every 4 hours as needed for Wheezing. 3 Inhaler 2 ??? omeprazole (PRILOSEC) 40 mg capsule Take 1 Cap by mouth daily. 180 Cap 2 ??? HYDROcodone-acetaminophen (LORTAB) 5-500 mg tablet Take 1 Tab by mouth every 6 hours as needed for Pain for 28 days. 112 Tab 0 ??? baclofen (LIORESAL) 10 mg tablet Take 1 Tab by mouth 3 times daily as needed. 180 Tab 0 ??? fluticasone-salmeterol (ADVAIR HFA) 230-21 mcg/actuation inhaler Inhale 2 Puffs as directed 2 times daily. 2 Inhaler 0 ??? fexofenadine (JUDITH) 180 mg tablet [...] by mouth daily. 60 Each 0 ??? ondansetron (ZOFRAN) 4 mg tablet Take 1 Tab by mouth daily as needed for Nausea. 60 Tab 0 ??? pregabalin (LYRICA) 150 mg capsule Take 1 Cap by mouth 3 times daily. 180 Each 0 ??? rOPINIRole (REQUIP) 2 mg tablet Take 1 Tab by mouth at bedtime. 60 Each 0 ??? tiotropium (SPIRIVA WITH HANDIHALER) 18 mcg inhalation capsule Inhale 1 Cap as directed daily. 60 Cap 0 ? ? aluminum & magnesium hydroxide-simethicone (MYLANTA-DS) 400-400-40 mg/5 mL suspension Take 15 mL by mouth as needed (epigastric pain). ??? levofloxacin (LEVAQUIN) 500 mg tablet Take 1 Tab by mouth daily. 3 Tab 0 ??? sumatriptan (IMITREX) 50 mg tablet Take 1 Tab by mouth once as needed for Migraine for 1 dose. 9 Each 2 ??? zolpidem (AMBIEN) 10 mg tablet Take 1 Tab by mouth at bedtime as needed for Sleep. 30 Each 2 ??? cyclosporine (RESTASIS) 0.05 % [...] rarely ROS - See HPI Objective: BP 110/64 Pulse 72 Temp(Src) 36.8 ??C (98.2 ??F) (Tympanic) Resp 16 Ht 162.6 cm (64) Wt 90.039 kg (198 lb 8 oz) BMI 34.07 kg/m2 LMP 01/11/1987 Physical Exam Assessment: Plan: Liset was seen today for medication management, asthma, chronic obstructive pulmonary disease, gastroesophageal reflux, depression, ankle injury, knee pain and sleep disorder. Diagnoses and associated orders for this visit: Asthma - montelukast (SINGULAIR) 10 mg tablet; Take 1 Tab by mouth daily. - levalbuterol (XOPENEX HFA) 45 mcg/actuation inhaler; Inhale 1-2 Puffs as directed every 4 hours as needed for Wheezing. Copd (chronic obstructive pulmonary disease) - levalbuterol (XOPENEX HFA) 45 mcg/actuation inhaler; Inhale 1-2 Puffs as directed every 4 hours as needed for Wheezing. Gastroesophageal reflux disease - omeprazole (PRILOSEC) 40 mg capsule; Take 1 Cap by mouth daily. Depression - sertraline (ZOLOFT) 100 mg tablet; Take 2 Tabs by mouth daily. Left knee pain - HYDROcodone-acetaminophen (LORTAB) 5-500 mg tablet; Take 1 Tab by mouth every 6 hours as needed for Pain for 28 days. - HYDROcodone-acetaminophen (LORTAB) 5-500 mg tablet; Take 1-2 Tabs by mouth every 6 hours as needed for Pain for 28 days. - HYDROcodone-acetaminophen (LORTAB) 5-500 mg tablet; Take 1 Tab by mouth every 6 hours as needed for Pain for 28 days. Rosacea - doxycycline (VIBRA-TABS) 100 mg tablet; Take 1 Tab by mouth daily. Patient Education Topic: as above Method: Verbal Taught to: Patient Barriers: None Outcomes: Verbalized understanding 6 min walk test done, no significant desaturation, order done for portable oxygen VPMS query was done, Ritalin prescribed by Dr Bacon, no concerns noted Return in about 3 months (around 07/03/2013) for SERA. documented in this encounter Plan of Treatment Upcoming Encounters Date Type Department Care Team (Late st Contact Info) Description 06/29/2024 14:15 EDT Office Visit [facility] [address] [place] [address] Jean Munoz MD [address] [place] [address] documented as of this encounter Visit Diagnoses Diagnosis Asthma- Primary Unspecified asthma COPD (chronic obstructive pulmonary disease) ([facility]) Chronic airway obstruction, not elsewhere classified Gastroesophageal reflux disease Esophageal reflux Depression Depressive disorder, not elsewhere classified Left knee pain Pain in joint, lower leg Rosacea Screening for osteoporosis- Primary Special screening [...] End Da te montelukast (SINGULAIR) 10 mg tabletIndications:Asthma Take 1 Tab by mouth daily. Reorder 03/02/2013 04/10/2013 sertraline (ZOLOFT) 100 mg tabletIndications:Depres meño Take 2 Tabs by mouth daily. Reorder 03/02/2013 04/10/2013 doxycycline (VIBRA-TABS) 100 mg tabletIndications:Rosace a Take 1 Tab by mouth daily. Reorder 03/02/2013 04/10/2013 levalbuterol (XOPENEX HFA) 45 mcg/actuation inhalerIndications:Asthm a,COPD (chronic obstructive pulmonary disease) ([facility]) Inhale 1-2 Puffs as directed every 4 hours as needed for Wheezing. Reorder 03/02/2013 04/10/2013 omeprazole (PRILOSEC) 40 mg capsuleIndications:Gastr oesophageal reflux disease Take 1 Cap by mouth daily. Reorder 03/02/2013 04/10/2013 HYDROcodone-acetaminophe n (LORTAB) 5-500 mg tabletIndications:Left knee pain Take 1 Tab by mouth every 6 hours as needed for Pain for 28 days. Reorder 02/16/2013 04/10/2013 hydrocodone-acetaminophe n (LORTAB) 5-500 mg tabletIndications:Left knee pain Take 1-2 Tabs by mouth every 6 hours as needed for Pain for 28 days. Reorder 01/19/2013 04/10/2013 HYDROcodone-acetaminophe n (LORTAB) 5-500 mg tabletIndications:Left knee pain Take 1 Tab by mouth every 6 hours as needed for Pain for 28 days. Reorder 03/16/2013 04/10/2013 documented as of this encounter Orders Equipment Count Last Ordered Date First Orde red Date HOME OXYGEN 1 04/10/2013 documented in this encounter Care Teams Classifying Machine Operator Relationship Specialty Start Date End Date Jean Munoz MD [address] [place] [phone] PCP - General 12/31/08 Manny Rizzo MD [address] [place] [phone] 04/20/10 documented as of this encounter
--- OUTSIDE RECORDS SUMMARY | 2024-06-10 07:28 | XMS_ITS | Encounter Summary ---
Author Organization [facility] Address [address] [place] [address] Care Team Providers Care Ham Smoker Name Role Phone Jean Munoz MD Primary Care Provider Manny Rizzo MD Unavailable Reason for Referral * Radiology Services (Routine/Next Available) - Closed Specialty Diagnoses / Procedures [facility] Referred To Contact Diagnoses LUQ pain Procedures RAD US ABDOMEN ONE ORGAN/QUADRANT Jean Munoz MD [address] [place] [phone] Referral ID Status Reason Start Date Expiration Date Visits Re quested Visits Authorized [id number] Closed 02/08/2013 1 1 Reason for Visit * Reason Comments Urinary Retention Discussed at last vi sit, has seen urology (Dr Powers), cystoscopy pending, watching what she drinks at night, voids before bed, occasional leaking, no hematuria Dizziness Has seen ENT (Dr Jerzy wong) [facility] pending but not until April? Knee Pain Saw Dr Glynn last week, still giving out, also pain, MRI 02/20/13, F/U after Abdominal Pain LUQ, with leaning ov er, something pops out Encounter Details Date Type Department Care Team (Late st Contact Info) Description 02/08/2013 14:[address] [facility] [address] [place] [address] Jean Munoz MD [address] [place] [address] Hesitancy (Primary Dx); Dizziness; Left knee pain; LUQ pain; Insomnia; Migraine Discharge Disposition: Auto Discharge Social History Tobacco [...] Sign Reading Time Taken Comments Blood Pressure 116/74 02/08/2013 1423 EDT Pulse 76 02/08/2013 1423 EDT Temperature - - Respiratory Rate 16 02/08/2013 1423 EDT Oxygen Saturation - - Inhaled Oxygen Concentration - - Weight 92.1 kg (203 lb) 02/08/2013 1423 EDT Height - - Body Mass Index 34.84 01/11/2013 1501 EDT documented in this encounter Functional Status Cognitive Status Response Date of Assessm ent Because of a physical, menta l, or emotional condition, do you have serious difficulty concentrating, remembering, or making decisions? (5 years old or older) Yes 04/05/2012 documented as of this encounter Ordered Prescriptions Prescription Sig Dispensed Refills Start Date End Da te zolpidem (AMBIEN) 10 mg tabletIndications:Insomni a Take 1 Tab by mouth at bedtime as needed for Sleep. 30 Each 2 02/08/2013 06/06/2013 sumatriptan (IMITREX) 50 mg tabletIndications:Migrain e Take 1 Tab by mouth once as needed for Migraine for 1 dose. 9 Each 2 02/08/2013 06/29/2013 HYDROcodone-acetaminophen (LORTAB) 5-500 mg tabletIndications:Left knee pain Take 1 Tab by mouth every 6 hours as needed for Pain for 28 days. 112 Tab 0 02/16/2013 04/10/2013 HYDROcodone-acetaminophen (LORTAB) 5-500 mg tabletIndications:Left knee pain Take 1 Tab by mouth every 6 hours as needed for Pain for 28 days. 112 Tab 0 03/16/2013 04/10/2013 documented in this encounter Discharge Disposition Disposition Code Departure Means Destination Auto Discharge documented in this encounter Progress Notes * Jean Munoz MD - 02/08/2013 2736 EDT Subjective: Patient ID: Liset Viera is an 52 y.o. female. Chief Complaint Patient presents with ??? Urinary Retention Discussed at last visit, has seen urology (Dr Powers), cystoscopy pending, watching what she drinks at night, voids before bed, occasional leaking, no hematuria ??? Dizziness Has seen ENT (Dr Vallejo) [facility]NG pending but not until April? Knee Pain Saw Dr Glynn last week, still giving out, also pain, MRI 02/20/13, F/U after ??? Abdominal Pain LUQ, with leaning over, something pops out HPI As above Patient Active Problem List [...] Wears glasses ??? Numbness ??? Chronic fatigue Past Medical History Diagnosis Date ??? UTI [...] 12/31/2009 ??? Fracture of right ankle 03/30/2010 Current Outpatient Prescriptions on File Prior to Visit Medication Sig Dispense Refill ??? zolpidem (AMBIEN) 10 mg tablet Take [...] Never Used ??? Alcohol Use: No rarely ROS - See HPI Objective: BP 116/74 Pulse 76 Resp 16 Wt 92.08 kg (203 lb) LMP 01/11/1987 Physical Exam mild inconsistent tenderness, no palpable defect but is overweight Assessment: Plan: Liset was seen today for urinary retention, dizziness, knee pain and abdominal pain. Diagnoses and associated orders for this visit: Hesitancy F/U per Urology Dizziness Further testing per ENT Left knee pain - F/U per Ortho - Has been dependent on opioids in the past for other issues, fortunately her dose is low - Hopeful can attempt wean once orthopedic issues addressed - HYDROcodone-acetaminophen (LORTAB) 5-500 mg tablet; Take 1 Tab by mouth every 6 hours as needed for Pain for 28 days. - HYDROcodone-acetaminophen (LORTAB) 5-500 mg tablet; Take 1 Tab by mouth every 6 hours as needed for Pain for 28 days. Luq pain - RAD US ABDOMEN ONE ORGAN/QUADRANT Insomnia - zolpidem (AMBIEN) 10 mg tablet; Take 1 Tab by mouth at bedtime as needed for Sleep. Migraine - sumatriptan (IMITREX) 50 mg tablet; Take 1 Tab by mouth once as needed for Migraine for 1 dose. Patient Education Topic: as above Method: Verbal Taught to: Patient Barriers: None Outcomes: Verbalized understanding Has PE in February, will need SERA by 04/13 for meds documented in this encounter Plan of Treatment Upcoming Encounters Date Type Department Care Team (Late st Contact Info) Description 06/29/2024 14:[address] [facility] [address] [place] [address] Jean Munoz MD [address] [place] [phone] documented as of this encounter Procedures Procedure Name Priority Date/Time Associated Diagnosis Comments RAD US ABDOMEN ONE ORGAN/QUADRANT Routine 02/22/2013 8:43 EDT LUQ pain documented in this encounter Results * RAD US ABDOMEN ONE ORGAN/QUADRANT (02/22/2013 8:43 EDT) Anatomical Region Laterality Modality Other 02/22/2013 8:43 EDT 02/22/2013 10:24 EDT Narrative 02/22/2013 10:24 EDT RAD US ABDOMEN ONE ORGAN/QUADRANT ??02/22/2013 8:43 AM Signs and Symptoms/Comments: ??789.02-Abdominal pain, left upper [id number]-CM; LUQ pain, ?mass Comparison: CT of the abdomen and pelvis August 15, 2008. Findings: Static and cine images of the left upper quadrant were performed. On sonographic images obtained in the area of the patient's reported pain in the left upper quadrant inferior to the ribs no abnormality is seen in the soft tissues of the abdominal wall. No hernia is present. The spleen is of normal echogenicity. No focal splenic lesions are identified. The small lesion in the posterior aspect of the spleen seen on the prior CT is not visualized on this study. The splenic volume is 239 mL. The left kidney demonstrates normal corticomedullary differentiation. There is no hydronephrosis or mass. The left kidney measures 10.7 cm. ?? Impression: 1. No sonographic abnormality to explain the patient's left upper quadrant pain. I have personally reviewed the images and the above interpretation and agree with the findings. Procedure Note Gina Rowan MD - 02/22/2013 RAD US ABDOMEN ONE ORGAN/QUADRANT 02/22/2013 8:43 AM Signs and Symptoms/Comments: 789.02-Abdominal pain, left upper [id number]-CM; LUQ pain, ?mass Comparison: CT of the abdomen and pelvis August 15, 2008. Findings: Static and cine images of the left upper quadrant were performed. On sonographic images obtained in the area of the patient's reported pain in the left upper quadrant inferior to the ribs no abnormality is seen in the soft tissues of the abdominal wall. No hernia is present. The spleen is of normal echogenicity. No focal splenic lesions are identified. The small lesion in the posterior aspect of the spleen seen on the prior CT is not visualized on this study. The splenic volume is 239 mL. The left kidney demonstrates normal corticomedullary differentiation. There is no hydronephrosis or mass. The left kidney measures 10.7 cm. Impression: 1. No sonographic abnormality to explain the patient's left upper quadrant pain. I have personally reviewed the images and the above interpretation and agree with the findings. Jean Munoz MD [facility] ES documented in this encounter Visit Diagnoses Diagnosis Hesitancy- Primary Urinary hesitancy Dizziness Dizziness and giddiness Left knee pain Pain in joint, lower leg LUQ pain Abdominal pain, left upper quadrant Insomnia Insomnia, unspecified Migraine Migraine, unspecified, without [...] Discontinue Reason Start Date End Da te hydrocodone-acetaminoph en (LORTAB) 5-500 mg tabletIndications:Left knee pain Take 1 Tab by mouth every 6 hours as needed for Pain for 28 days. Reorder 12/22/2012 02/08/2013 hydrocodone-acetaminoph en (LORTAB) 5-500 mg tabletIndications:Left knee pain Take 1 Tab by mouth every 6 hours as needed for Pain for 28 days. Reorder 11/24/2012 02/08/2013 sumatriptan (IMITREX) 50 mg tablet Take 1 Tab by mouth once as needed for Migraine for 1 dose. Reorder 09/19/2012 02/08/2013 zolpidem (AMBIEN) 10 mg tabletIndications:Insom yesi Take 1 Tab by mouth at bedtime as needed for Sleep. Reorder 11/24/2012 02/08/2013 documented as of this encounter Care Teams Ham Smoker Relationship Specialty Start Date End Date Jean Munoz MD [address] [place] [phone] PCP - General 12/31/08 Manny Rizzo MD [address] [place] [phone] 04/20/10 documented as of this encounter
--- OUTSIDE RECORDS SUMMARY | 2024-06-10 07:28 | XMS_ITS | Encounter Summary ---
Author Organization [facility] Address [address] [place] [address] Care Team Providers Care Gate Attendant Name Role Phone Jean Munoz MD Primary Care Provider Manny Rizzo MD Unavailable Reason for Visit * Reason Onset Date Comments Returning Call 02/24/2013 Encounter Details Date Type Department Care Team (Late st Contact Info) Description 02/24/[address] [facility] [address] [place], [place] [phone] Julio Rowan MD Returning Call Social History Tobacco Use Types [...] End Da te predniSONE (DELTASONE) 20 mg tablet Take 1 tab orally twice a day for 5 day or until improvement, than taper to 1 once a day for 2 day, than 1/2 for 2 days, than stop. 13 Tab 0 02/24/2013 03/01/2013 azithromycin (ZITHROMAX) 250 mg tablet Take 2 tablets (500mg) by mouth on day 1, followed by 1 tablet (250mg) by mouth once daily on days 2 through 5. 6 Tab 0 02/24/2013 02/28/2013 documented in this encounter Miscellaneous Notes * Telephone Encounter - Julio Rowan MD - 02/24/2013 4787 EDT Patient called to report fever, chest congestion and shortness of breath that is ongoing despite 5 days of Prednisone 20 mg po bid prescribed to patient by her PCP. Albuterol has not helped much, butduoneb has been more helpful, but short lived. Patient did not call PCP today. She does not think she need to go to hospital today, but feels similar to her hospitalization back in 03/2012 for pneumonia. Recommended addition of Z-pack, continuation of prednisone 20 mg po bid, and duoneb every 4-6 hrs until feeling better. She is instruction to continue prednisone 40 mg daily until feeling better or 5days before tapering. Patient is instruction to monitoring herself for next 48 hours. If she continue to get worse despite above recommendation, she is to go to ER for full evaluation and treatment. Otherwise patient will call her PCP or Dr. Virk on Wednesday for update of her progress. Patient express understanding and agree with plan. documented in this encounter Plan of Treatment Upcoming Encounters Date Type Department Care Team (Late st Contact Info) Description 06/29/2024 14:15 EDT Office Visit [facility] [address] [place] [address] Jean Munoz MD [address] [place] [phone] documented as of this encounter Visit Diagnoses Diagnosis Fever- Primary Fever, unspecified Chest congestion Other symptoms involving respiratory system and chest Extrinsic asthma, unspecified Emphysema Other emphysema Screening for osteoporosis- Primary Special screening for osteoporosis Primary narcolepsy without cataplexy Chronic pain syndrome Chronic low back pain Lumbago Chronic use of opiate for therapeutic purpose Pain medication agreement Encounter for long-term (current) use of other medications Screen for colon cancer Special screening for malignant neoplasms, colon documented in this encounter Care Teams Gate Attendant Relationship Specialty Start Date End Date Jean Munoz MD [address] [place] [phone] PCP - General 12/31/08 Manny Rizzo MD [address] [place] [phone] 04/20/10 documented as of this encounter
--- OUTSIDE RECORDS SUMMARY | 2024-06-10 07:28 | XMS_ITS | Encounter Summary ---
Author Organization [facility] Address [address] [place] [address] Care Team Providers Care Steel Burner Name Role Phone Jean Munoz MD Primary Care Provider Manny Rizzo MD Unavailable Encounter Details Date Type Department Care Team (Late st Contact Info) Description 02/23/2013 Results Only Imaging [facility] Sports Medicine Program - [address] [address] Bear Glynn MD [address] [place] [phone] Social History Tobacco Use Types Packs/Day [...] Office Visit [facility] [address] [place] [address] Jean Munoz MD [address] [place] [phone] documented as of this encounter Procedures Procedure Name Priority Date/Time Associated Diagnosis Comments MR EXTREMITY KNEE WO CONTRAST 02/28/2013 23:19 EDT documented in this encounter Results * MR EXTREMITY KNEE WO CONTRAST (02/28/2013 23:19 EDT) Anatomical Region Laterality Modality Other 02/28/2013 23:1 9 EDT 03/01/2013 13:26 EDT Narrative 03/01/2013 13:26 EDT MR EXTREMITY KNEE WO CONTRAST ??02/28/2013 11:19 PM Clinical History/Comments: 719.46-Pain in joint, lower [id number]; left knee pain Comparison: MRI from March 21, 2012. Technique: Noncontrast MR imaging of the left knee with 6 sequences obtained. Please refer to the MRI prescription worksheet for technical details. Findings: Compared with the prior study, the medial meniscus again shows truncated and diminutive appearance of its posterior horn. The findings in the absence of prior partial medial meniscectomy are compatible with radial tear, again appearing most severe in the region of the posterior horn near its junction with the meniscal body. No lateral meniscus tear is visualized. The anterior and posterior cruciate ligaments are intact. The tibial collateral ligament fibers are in continuity, but again with slightly lax appearance of the tibial collateral ligament noted, findings consistent with sequela from prior partial MCL injury. The lateral collateral ligament complex and popliteus tendon are intact. The patellar tendon and distal quadriceps tendon are intact. Medial femorotibial compartment again shows mild articular cartilage thinning, with the chondral wear most conspicuous along the peripheral margins of the joint. The lateral femorotibial compartment articular cartilage this is relatively maintained. The patella and femoral trochlear show scattered minimal sites of chondral surface fraying, also with a thin deep chondral fissure again noted on the inferior aspect of the medial femoral trochlea (sagittal 16). There is a small knee joint effusion present. Trace volume of fluid is noted within the semimembranosus-medial gastrocnemius joint recess. Impression: 1. Compared with the prior study, the medial meniscus again shows truncated and diminutive appearance of its posterior horn. The findings in the absence of prior partial medial meniscectomy are compatible with radial tear, again appearing most severe in the region of the posterior horn near its junction with the meniscal body. 2. Medial femorotibial compartment again shows mild articular cartilage thinning, with the chondral wear most conspicuous along the peripheral margins of the joint. Mild residual changes from prior partial MCL injury are again noted. 3. No lateral meniscus tear visualized. The lateral femorotibial compartment articular cartilage thickness is relatively maintained. 4. Patella and femoral trochlear show scattered minimal sites of chondral surface fraying, also with a thin deep chondral fissure again noted on the inferior aspect of the medial femoral trochlea. 5. Small knee joint effusion. . Procedure Note 03/01/2013 MR EXTREMITY KNEE WO CONTRAST 02/28/2013 11:19 PM Clinical History/Comments: 719.46-Pain in joint, lower [id number]-CM; left knee pain Comparison: MRI from March 21, 2012. Technique: Noncontrast MR imaging of the left knee with 6 sequences obtained. Please refer to the MRI prescription worksheet for technical details. Findings: Compared with the prior study, the medial meniscus again shows truncated and diminutive appearance of its posterior horn. The findings in the absence of prior partial medial meniscectomy are compatible with radial tear, again appearing most severe in the region of the posterior horn near its junction with the meniscal body. No lateral meniscus tear is visualized. The anterior and posterior cruciate ligaments are intact. The tibial collateral ligament fibers are in continuity, but again with slightly lax appearance of the tibial collateral ligament noted, findings consistent with sequela from prior partial MCL injury. The lateral collateral ligament complex and popliteus tendon are intact. The patellar tendon and distal quadriceps tendon are intact. Medial femorotibial compartment again shows mild articular cartilage thinning, with the chondral wear most conspicuous along the peripheral margins of the joint. The lateral femorotibial compartment articular cartilage this is relatively maintained. The patella and femoral trochlear show scattered minimal sites of chondral surface fraying, also with a thin deep chondral fissure again noted on the inferior aspect of the medial femoral trochlea (sagittal 16). There is a small knee joint effusion present. Trace volume of fluid is noted within the semimembranosus-medial gastrocnemius joint recess. Impression: 1. Compared with the prior study, the medial meniscus again shows truncated and diminutive appearance of its posterior horn. The findings in the absence of prior partial medial meniscectomy are compatible with radial tear, again appearing most severe in the region of the posterior horn near its junction with the meniscal body. 2. Medial femorotibial compartment again shows mild articular cartilage thinning, with the chondral wear most conspicuous along the peripheral margins of the joint. Mild residual changes from prior partial MCL injury are again noted. 3. No lateral meniscus tear visualized. The lateral femorotibial compartment articular cartilage thickness is relatively maintained. 4. Patella and femoral trochlear show scattered minimal sites of chondral surface fraying, also with a thin deep chondral fissure again noted on the inferior aspect of the medial femoral trochlea. 5. Small knee joint effusion. . Bear Glynn MD IMG MRI ORDERABL ES documented in this encounter Visit Diagnoses Not on filedocumented in this encounter Care Teams Steel Burner Relationship Specialty Start Date End Date Jean Munoz MD [address] [place] [phone] PCP - General 12/31/08 Manny Rizzo MD [facility] [place] [phone] 04/20/10 documented as of this encounter
--- OUTSIDE RECORDS SUMMARY | 2024-06-10 07:28 | XMS_ITS | Encounter Summary ---
Author Organization [facility] Address [address] [place] [address] Care Team Providers Care Policy Writer Typist Name Role Phone Jean Munoz MD Primary Care Provider Manny Rizzo MD Unavailable Reason for Visit * Reason Onset Date Comments Medications Refill 03/13/2013 Encounter Details Date Type Department Care Team (Late st Contact Info) Description 03/13/2013 Telephone [facility] Sleep Program - [address] [phone] Tiana Bacon [address] [place] [address] Medications Refill Social History Tobacco [...] encounter Miscellaneous Notes * Telephone Encounter - GimenezBarbara - 03/13/2013 1054 EDT PT needs refill on Ritalin 20mg and Ritalin 10mg. PT will pick script up at front end alignment specialist. documented in this encounter Plan of Treatment Upcoming Encounters Date Type Department Care Team (Late st Contact Info) Description 06/29/2024 14:15 EDT Office Visit [facility] [address] [place] [address] Jean Munoz MD [address] [place] [phone] documented as of this encounter Visit Diagnoses Not on filedocumented in this encounter Care Teams Policy Writer Typist Relationship Specialty Start Date End Date Jean Munoz MD [address] [place] [phone] PCP - General 12/31/08 Manny Rizzo MD [address] [place] [address] 04/20/10 documented as of this encounter
--- OUTSIDE RECORDS SUMMARY | 2024-06-10 07:28 | XMS_ITS | Encounter Summary ---
Author Organization [facility] Address [address] [place] [address] Care Team Providers Care Digital Learning Platforms Manager Name Role Phone Jean Munoz MD Primary Care Provider Manny Rizzo MD Unavailable Afia Valle MD Unavailable Jesi Leong UNDERCOLLAR BASTER Unavailable [phone] SaloJesi shanks UNDERCOLLAR BASTER Unavailable Reason for Visit * Reason Comments Other Encounter Details Date Type Department Care Team (Late st Contact Info) Description 06/04/2013 Refill [facility] Family Medicine [facility] [address] [place], [place] [phone] Jean Munoz MD [address] [place] [phone] Other Social History Tobacco Use [...] mouth at bedtime as needed for Sleep. 10 Each 0 06/06/2013 06/13/2013 tiotropium (SPIRIVA WITH HANDIHALER) 18 mcg inhalation capsuleIndications:COPD (chronic obstructive pulmonary disease) ([facility]) Inhale 1 Cap as directed daily. 90 Cap 2 06/05/2013 12/13/2013 levalbuterol (XOPENEX HFA) 45 mcg/actuation inhalerIndications:Asthm a,COPD (chronic obstructive pulmonary disease) ([facility]) Inhale 1-2 Puffs as directed every 4 hours as needed for Wheezing. 3 Inhaler 2 06/05/2013 11/13/2013 fluticasone-salmeterol (ADVAIR HFA) 230-21 mcg/actuation inhalerIndications:Asthm a,COPD (chronic obstructive pulmonary disease) ([facility]) Inhale 2 Puffs as directed 2 times daily. 2 Inhaler 0 06/05/2013 08/16/2013 rOPINIRole (REQUIP) 2 mg tabletIndications:Restle ss legs syndrome TAKE ONE TABLET BY MOUTH AT BEDTIME 90 Tab 2 06/04/2013 09/21/2013 documented in this encounter Miscellaneous Notes * Telephone Encounter - Jean Munoz MD - 06/06/2013 1020 EDT escripts done, please notify patient, thanks Ambien 10 mg no longer recommended per FDA, script done for Ambien 5 mg to last until next appointment, will review at that visit, please call in to pharmacy and let her know, thanks * Telephone Encounter - Deidre Dunbar - 06/06/[address] call to pt and she states she is out of medication and can not wait for her appointment on 06/13/13. * Telephone Encounter - Kavita Mann - 06/05/2013 1000 EDT Medication(s) Requested: advair inhaler, spiriva, requip, Pharmacy: [facility] Last Refill Date: 03.02.13 Last Visit Date: 04.10.13 Next Visit Date: 06/13/2013 Is patient out of medication? No Kavita Mann 06/05/2013 10:00 documented in this encounter Plan of Treatment Upcoming Encounters Date Type Department Care Team (Late st Contact Info) Description 06/29/2024 14:15 EDT Office Visit [facility] [address] [place], [place] [phone] Jean Munoz MD [address] [place] [phone] documented as of this encounter Visit Diagnoses Diagnosis Insomnia- Primary Insomnia, unspecified Asthma Unspecified asthma COPD (chronic obstructive pulmonary disease) ([facility]) Chronic airway obstruction, not elsewhere classified Restless legs syndrome Restless legs syndrome (RLS) [...] 1 Tab by mouth at bedtime. Reorder 03/02/2013 06/04/2013 fluticasone-salmeterol (ADVAIR HFA) 230-21 mcg/actuation inhalerIndications:Asthm a,COPD (chronic obstructive pulmonary disease) ([facility]) Inhale 2 Puffs as directed 2 times daily. Reorder 03/02/2013 06/05/2013 levalbuterol (XOPENEX HFA) 45 mcg/actuation inhalerIndications:Asthm a,COPD (chronic obstructive pulmonary disease) ([facility]) Inhale 1-2 Puffs as directed every 4 hours as needed for Wheezing. Reorder 04/10/2013 06/05/2013 tiotropium (SPIRIVA WITH HANDIHALER) 18 mcg inhalation capsuleIndications:COPD (chronic obstructive pulmonary disease) ([facility]) Inhale 1 Cap as directed daily. Reorder 03/02/2013 06/05/2013 zolpidem (AMBIEN) 10 mg tabletIndications:Insomn ia Take 1 Tab by mouth at bedtime as needed for Sleep. Reorder 02/08/2013 06/06/2013 documented as of this encounter Additional Health Concerns Infection Onset Date Last Indicated Resolved Time R/O COVID-19 05/15/2022 05/15/2022 05/20/2022 22:1 6 EDT R/O COVID-19 11/14/2022 11/14/2022 11/14/2022 19:1 6 EST documented as of this encounter Care Teams Digital Learning Platforms Manager Relationship Specialty Start Date End Date Jean Munoz MD [address] [place] [phone] PCP - General 12/31/08 Manny Rizzo MD [address] [place] [phone] 04/20/10 Afia Valle MD [address] [facility], [address] [place] [phone] Care Team Radiation Oncology 07/02/21 Jesi Leong, [facility] [address] [place] [phone] Circulating Nurse 12/24/21 09/20/22 Jesi Leong, [facility] [address] [place] [phone] Behavioral Health Circulating NurseReconnaissance Man Care 10/19/22 01/23/24 documented as of this encounter
--- OUTSIDE RECORDS SUMMARY | 2024-06-10 07:28 | XMS_ITS | Encounter Summary ---
Author Organization [facility] Address [address] [place] [address] Care Team Providers Care Physical Aerodynamicist Name Role Phone Jean Munoz MD Primary Care Provider Manny Rizzo MD Unavailable Reason for Visit * Reason Comments Dizziness Encounter Details Date Type Department Care Team (Late st Contact Info) Description 02/13/2013 Documentation Visit [facility] Therapy - [address] [address] Amanda Chavez, PT Social History Tobacco Use Types Packs/Day Years [...] as of this encounter Progress Notes * Amanda Chavez, PT - 02/13/2013 1519 EDT [facility] [address] [facility] [address] Physical Therapy Discontinue/Discharge Note Date: 02/13/2013 Reason for Referral: Diagnosis: positional vertigo ICD 9: 386.11 Date of Onset: 01/04/13 Referring Provider: Jean Munoz Date of Initial Eval: 01/04/13 Total Number of Visits: 1 SUBJECTIVE: None OBJECTIVE: Date of Initial Eval: 01/04/13. We are opting to discontinue Ms. Viera's therapy at this time because, the patient and her referring provider have not indicated that additional therapy is needed/ wanted. Please refer to the Physical Therapy Initial Evaluation Note for details. ASSESSMENT: Unable to assess her current status as the patient was not seen for any additional therapy sessions. GOALS: All goals discontinued. PLAN: Discontinue physical therapy. The patient is invited to contact us at any time, should any problems arise, or should her plans for rehabilitation change. AMANDA CHAVEZ, PT 02/13/2013 15:19 documented in this encounter Plan of Treatment Upcoming Encounters Date Type Department Care Team (Late st Contact Info) Description 06/29/2024 14:15 EDT Office Visit [facility] [address] [place] [address] Jean Munoz MD [address] [place] [phone] documented as of this encounter Visit Diagnoses Not on filedocumented in this encounter Care Teams Physical Aerodynamicist Relationship Specialty Start Date End Date Jaen Munoz MD [address] [place] [phone] PCP - General 12/31/08 Manny Rizzo MD [address] [place] [phone] 04/20/10 documented as of this encounter
--- OUTSIDE RECORDS SUMMARY | 2024-06-10 07:28 | XMS_ITS | Encounter Summary ---
Author Organization [facility] Address [address] [place] [address] Care Team Providers Care Bottom Scrubber Name Role Phone Jean Munoz MD Primary Care Provider Manny Rizzo MD Unavailable Reason for Visit * Reason Onset Date Comments Medications Refill 06/05/2013 Encounter Details Date Type Department Care Team (Late st Contact Info) Description 06/05/2013 Refill [facility] Sleep Program - [address] [phone] Tiana Bacon [address] [place] [phone] Medications Refill Social History Tobacco Use [...] mouth daily. 60 Tab 0 06/07/2013 07/03/2013 methylphenidate (RITALIN;METHYLIN) 10 mg tablet Take one tab in the afternoon for narcolepsy 30 Tab 0 06/07/2013 07/03/2013 documented in this encounter Miscellaneous Notes * Telephone Encounter - Corrina Ac RN - 06/05/2013 1136 EDT Called pt and let her know her ritalin prescriptions are ready for pickler helper. * Telephone Encounter - Duy Booth - 06/05/2013 1102 EDT Calling to request refills of Ritlain. She would like to pick these up on Wednesday. documented in this encounter Plan of Treatment Upcoming Encounters Date Type Department Care Team (Late st Contact Info) Description 06/29/2024 14:15 EDT Office Visit [facility] Medicine [facility] [address] [place] [address] Jean Munoz MD [address] [place] [phone] documented as of this encounter Visit Diagnoses Not on filedocumented in this encounter Discontinued Medications Medication Sig Discontinue Reason Start Date End Da te methylphenidate (RITALIN;METHYLIN) 10 mg tablet Take one tab in the afternoon for narcolepsy Reorder 05/10/2013 06/05/2013 methylphenidate (RITALIN;METHYLIN) 20 mg tablet Take 2 Tabs by mouth daily. Reorder 05/10/2013 06/05/2013 documented as of this encounter Care Teams Bottom Scrubber Relationship Specialty Start Date End Date Jean Munoz MD [address] [place] [phone] PCP - General 12/31/08 Manny Rizzo MD [address] [place] [phone] 04/20/10 documented as of this encounter
--- OUTSIDE RECORDS SUMMARY | 2024-06-10 07:28 | XMS_ITS | Encounter Summary ---
Author Organization [facility] Address [address] [place] [address] Care Team Providers Care Meat Products Demonstrator Name Role Phone Jean Munoz MD Primary Care Provider Manny Rizzo MD Unavailable Reason for Referral * Consult (Routine/Next Available) - Closed Specialty Diagnoses / Procedures Referred By [facility] Referred To Contact Pulmonary Disease Diagnoses COPD (chronic obstructive pulmonary disease) ([facility]) Asthma Jean Munoz MD [address] [place] [phone] [facility] Ep5 Pulmonology [address] [place] [address] Referral ID Status Reason Start Date Expiration Date V isits Requested Visits Authorized [id number] Closed Specialty Services Required 03/02/2013 1 1 Question Answer Reason for Request: Request F/U with Dr Virk (was recently hospitalized for COPD exacerbation) Reason for Visit * Reason Comments Annual Exam Hospital Discharge Follow Up Encounter Details Date Type Department Care Team ([facility] Contact Info) Description 03/02/2013 9:45 EDT Office Visit [facility] [address] [place] [address] Jean Munoz MD [address] [place] [address] COPD (chronic obstructive pulmonary disease) ([facility]) ([facility]) (Primary Dx); Asthma; Chronic back pain; Low back pain; Seasonal allergic rhinitis; Depression; Restless legs syndrome; Gastroesophageal reflux disease; Rosacea Social History Tobacco Use Types Packs/Day [...] Reading Time Taken Comments Blood Pressure 116/74 03/02/2013 0951 EDT Pulse 80 03/02/2013 0951 EDT Temperature 35.8 ??C (96.5 ??F) 03/02/2013 0951 EDT Respiratory Rate 20 03/02/2013 0951 EDT Oxygen Saturation - - Inhaled Oxygen Concentration - - Weight 91.2 kg (201 lb) 03/02/2013 0951 EDT Height 162.6 cm (5' 4) 03/02/2013 0951 EDT Body Mass Index 34.5 03/02/2013 0951 EDT documented in this encounter Functional Status Cognitive Status Response Date of Assessm ent Because of a physical, menta l, or emotional condition, do you have serious difficulty concentrating, remembering, or making decisions? (5 years old or older) Yes 02/26/2013 documented as of this encounter Patient Instructions * Patient Instructions* Teetee Marshall LPN - 03/02/2013 9:55 EDT [employer] Activation Thank you for your interest in [facility]'s patient portal, [employer]. Please follow the instructions below to set up your account. [employer] allows you to send messages to your doctor, view your test results, renew your prescriptions, request appointments, pay bills and more. How Do I Sign Up? 1. In your Internet browser, go to [email or web address] . 2. Click on the Accept My Invitation Code link in the Set Up an Account box. You will see the page: Accept My Invitation. 3. Enter your [employer] Invitation Code exactly as it appears below. You will not need to use this code after you???ve completed the sign-up process. If you do not sign up before the expiration date, you must request a new code. [employer] Invitation Code: [email or web address] Expires: 05/01/2013 9:55 4. Enter your Date of (mm/dd/yyyy) as indicated and click Next. You will be taken to the nextpage to create your account. 5. Create a [employer] username. This will be your [employer] Online username and cannot be changed, sothink of one that is secure and easy to remember. 6. Create a [employer] password. You can change your password at any time. Enter your passwordagain to confirm it. 7. Enter your e-mail address. You will receive e-mail notifications when new information is available in [employer]. 8. Enter your security question and answer. These can be used at a later time if you forget your password. 9. Click Create Account. You can now view your medical record and billing information. If you have been granted proxy access to another patient's chart, you will see that patient listed under Family Records when you log into your [employer] account. Additional Information If you have questions, you can email or call to talk to our [employer] Customer Service Center, which is open 24 hours a day, 7 days a week. Remember, [employer] is NOT to be used for urgent needs. For medical emergencies, dial 9-1-1. documented in this encounter Ordered Prescriptions Prescription Sig Dispensed Refills Start Date End Da te tiotropium (SPIRIVA WITH HANDIHALER) 18 mcg inhalation capsuleIndications:MARKETING SERVICES COORDINATOR D (chronic obstructive pulmonary disease) ([facility]) Inhale 1 Cap as directed daily. 60 Cap 0 03/02/2013 06/05/2013 sertraline (ZOLOFT) 100 mg tabletIndications:Depr ession Take 2 Tabs by mouth daily. 120 Tab 0 03/02/2013 04/10/2013 rOPINIRole (REQUIP) 2 mg tabletIndications:Rest less legs syndrome Take 1 Tab by mouth at bedtime. 60 Each 0 03/02/2013 06/04/2013 pregabalin (LYRICA) 150 mg capsuleIndications:Chr onic back pain Take 1 Cap by mouth 3 times daily. 180 Each 0 03/02/2013 06/29/2013 ondansetron (ZOFRAN) 4 mg tabletIndications:Benja roesophageal reflux disease Take 1 Tab by mouth daily as needed for Nausea. 60 Tab 0 03/02/2013 06/13/2013 omeprazole (PRILOSEC) 40 mg capsuleIndications:Gas troesophageal reflux disease Take 1 Cap by mouth daily. 60 Cap 0 03/02/2013 04/10/2013 nortriptyline (PAMELOR) 75 mg capsuleIndications:Dep ression Take 1 Cap by mouth daily. 60 Each 0 03/02/2013 12/13/2013 montelukast (SINGULAIR) 10 mg tabletIndications:Asth ma Take 1 Tab by mouth daily. 60 Each 0 03/02/2013 04/10/2013 mometasone (NASONEX) 50 mcg/actuation nasal sprayIndications:Seaso nal allergic rhinitis 2 Sprays by nasal route daily. 2 Inhaler 0 03/02/2013 12/13/2013 levalbuterol (XOPENEX HFA) 45 mcg/actuation inhalerIndications:Ast hma,COPD (chronic obstructive pulmonary disease) ([facility]) Inhale 1-2 Puffs as directed every 4 hours as needed for Wheezing. 2 Inhaler 0 03/02/2013 04/10/2013 ipratropium-albuterol (DUONEB) 0.5 mg-3 mg(2.5 mg base)/3 mL nebulizer solutionIndications:As thma,COPD (chronic obstructive pulmonary disease) ([facility]) Take 3 mL by nebulization every 6 hours as needed for Wheezing. 2 Box 0 03/02/2013 02/16/2014 fexofenadine (JUDITH) 180 mg tabletIndications:Seas onal allergic rhinitis Take 1 Tab by mouth daily. 60 Each 0 03/02/2013 12/13/2013 doxycycline (VIBRA-TABS) 100 mg tabletIndications:Elaine cea Take 1 Tab by mouth daily. 60 Tab 0 03/02/2013 04/10/2013 fluticasone-salmeterol (ADVAIR HFA) 230-21 mcg/actuation inhalerIndications:Ast hma,COPD (chronic obstructive pulmonary disease) ([facility]) Inhale 2 Puffs as directed 2 times daily. 2 Inhaler 0 03/02/2013 06/05/2013 baclofen (LIORESAL) 10 mg tabletIndications:Low back pain Take 1 Tab by mouth 3 times daily as needed. 180 Tab 0 03/02/2013 12/13/2013 documented in this encounter Progress Notes * Jean Munoz MD - 03/02/2013 1023 EDT Subjective: Patient ID: Liset Viera is an 52 y.o. female. Chief Complaint Patient presents with ??? Annual Exam ??? Hospital Discharge Follow Up HPI Scheduled for PE but patient declined Instead we focused on recent admission COPD (chronic obstructive pulmonary disease) Recently discharged from [facility] for COPD/PNA See discharge summary for details Now on oxygen 6 L with ambulation, 2 L otherwise Still on Levaquin, prednisone taper, Duoneb every 4 hours, also Advair and Spiriva, albuterol Not smoking x 2 years +second hand smoke exposure, plans to address this Also needs med refills Patient Active Problem List Diagnoses ??? Severe [...] every 4 hours as needed for Wheezing. 2 Inhaler 0 ??? mometasone (NASONEX) 50 mcg/actuation nasal spray 2 Sprays by nasal route daily. 2 Inhaler 0 ??? montelukast (SINGULAIR) 10 mg tablet Take 1 Tab by mouth daily. 60 Each 0 ??? nortriptyline (PAMELOR) 75 mg capsule Take 1 Cap by mouth daily. 60 Each 0 ??? omeprazole (PRILOSEC) 40 mg capsule Take 1 Cap by mouth daily. 60 Cap 0 ??? pregabalin (LYRICA) 150 mg capsule Take 1 Cap by mouth 3 times daily. 180 Each 0 ??? rOPINIRole (REQUIP) 2 mg tablet Take 1 Tab by mouth at bedtime. 60 Each 0 ??? sertraline (ZOLOFT) 100 mg tablet Take 2 Tabs by mouth daily. 120 Tab 0 ??? tiotropium (SPIRIVA WITH HANDIHALER) 18 [...] daily for 3 days. 3 Tab 0 ??? methylphenidate (RITALIN;METHYLIN) 20 mg [...] the afternoon for narcolepsy 30Tab 0 ??? hydrocodone-acetaminophen (LORTAB) 5-500 mg tablet Take 1-2 Tabs by mouth every 6 hours as needed for Pain for 28 days. 112 Tab 0 ??? cyclosporine (RESTASIS) 0.05 % [...] - See HPI Objective: BP 116/74 Pulse 80 Temp(Src) 35.8 ??C (96.5 ??F) (Tympanic) Resp 20 Ht 162.6 cm (64) Wt 91.173 kg (201 lb) BMI 34.50 kg/m2 LMP 01/11/1987 Physical Exam occasional cough Lungs with occasional wheeze bilaterally Assessment: Plan: Liset was seen today for annual exam and hospital discharge follow up. Diagnoses and associated orders for this visit: Copd (chronic obstructive pulmonary disease) - fluticasone-salmeterol (ADVAIR HFA) 230-21 mcg/actuation inhaler; Inhale 2 Puffs as directed 2 times daily. - ipratropium-albuterol (DUONEB) 0.5 mg-3 mg(2.5 mg base)/3 mL nebulizer solution; Take 3 mL by nebulization every 6 hours as needed for Wheezing. - levalbuterol (XOPENEX HFA) 45 mcg/actuation inhaler; Inhale 1-2 Puffs as directed every 4 hours as needed for Wheezing. - tiotropium (SPIRIVA WITH HANDIHALER) 18 mcg inhalation capsule; Inhale 1 Cap as directed daily. - Generic DME Order Discussed avoiding smoke exposure F/U Pulmonary Asthma - fluticasone-salmeterol (ADVAIR HFA) 230-21 mcg/actuation inhaler; Inhale 2 Puffs as directed 2 times daily. - ipratropium-albuterol (DUONEB) 0.5 mg-3 mg(2.5 mg base)/3 mL nebulizer solution; Take 3 mL by nebulization every 6 hours as needed for Wheezing. - levalbuterol (XOPENEX HFA) 45 mcg/actuation inhaler; Inhale 1-2 Puffs as directed every 4 hours as needed for Wheezing. - montelukast (SINGULAIR) 10 mg tablet; Take 1 Tab by mouth daily. Chronic back pain - pregabalin (LYRICA) 150 mg capsule; Take 1 Cap by mouth 3 times daily. Low back pain - baclofen (LIORESAL) 10 mg tablet; Take 1 Tab by mouth 3 times daily as needed. Seasonal allergic rhinitis - fexofenadine (JUDITH) 180 mg tablet; Take 1 Tab by mouth daily. - mometasone (NASONEX) 50 mcg/actuation nasal spray; 2 Sprays by nasal route daily. Depression - nortriptyline (PAMELOR) 75 mg capsule; Take 1 Cap by mouth daily. - sertraline (ZOLOFT) 100 mg tablet; Take 2 Tabs by mouth daily. Restless legs syndrome - rOPINIRole (REQUIP) 2 mg tablet; Take 1 Tab by mouth at bedtime. Gastroesophageal reflux disease - omeprazole (PRILOSEC) 40 mg capsule; Take 1 Cap by mouth daily. - ondansetron (ZOFRAN) 4 mg tablet; Take 1 Tab by mouth daily as needed for Nausea. Rosacea - doxycycline (VIBRA-TABS) 100 mg tablet; Take 1 Tab by mouth daily. F/U Ortho as scheduled for knee pain Will need F/U in March re hydrocodone Rx Patient Education Topic: as above Method: Verbal Taught to: Patient Barriers: None Outcomes: Verbalized understanding documented in this encounter Miscellaneous Notes * Assessment & Plan Note - Jean Munoz MD - 03/02/2013 1011 EDT Associated Problem(s): Panlobular emphysema ([facility]) Recently discharged from [facility] for COPD/PNA 6 L with ambulation, 2 L otherwise Still on Levaquin, prednisone taper, Duoneb every 4 hours, also Advair and Spiriva, albuterol Not smoking x 2 years +second hand smoke exposure, plans to address this documented in this encounter Plan of Treatment Upcoming Encounters Date Type Department Care Team (Late st Contact Info) Description 06/29/2024 14:15 EDT Office Visit [facility] [address] [place], [place] [phone] Jean Munoz MD [address] [place] [address] Scheduled Referrals Name Type Priority Associated Diagnoses Orde r Schedule AMB CONSULT PULMONARY Outpatient Referral Routine COPD (chronic obstructive pulmonary disease) ([facility]) ([facility]) Asthma Ordered: 03/02/2013 documented as of this encounter Visit Diagnoses Diagnosis COPD (chronic obstructive pulmonary disease) ([facility])- Primary Chronic airway obstruction, not elsewhere classified Asthma Unspecified asthma Chronic back pain Backache, unspecified Low back pain Lumbago Seasonal allergic rhinitis Allergic rhinitis, cause unspecified Depression Depressive disorder, not elsewhere classified Restless legs syndrome Restless legs syndrome (RLS) Gastroesophageal reflux disease Esophageal reflux Rosacea Screening for osteoporosis- Primary Special screening [...] Discontinue Reason Start Date End Da te baclofen (LIORESAL) 10 mg tabletIndications:Low back pain Take 1 Tab by mouth 3 times daily as needed. Reorder 11/24/2012 03/02/2013 fluticasone-salmetero l (ADVAIR HFA) 230-21 mcg/actuation inhalerIndications:As thma Inhale 2 Puffs as directed 2 times daily. Reorder 11/23/2012 03/02/2013 doxycycline (VIBRA-TABS) 100 mg tablet Take 1 Tab by mouth daily. Reorder 03/01/2013 03/02/2013 fexofenadine (JUDITH) 180 mg tabletIndications:Sea el allergic rhinitis Take 1 Tab by mouth daily. Reorder 11/24/2012 03/02/2013 ipratropium-albuterol (DUONEB) 0.5 mg-3 mg(2.5 mg base)/3 mL nebulizer solutionIndications:A sthma Take 3 mL by nebulization every 6 hours as needed for Wheezing. Reorder 11/24/2012 03/02/2013 levalbuterol (XOPENEX HFA) 45 mcg/actuation inhalerIndications:As thma Inhale 1-2 Puffs as directed every 4 hours as needed for Wheezing. Reorder 11/24/2012 03/02/2013 mometasone (NASONEX) 50 mcg/actuation nasal sprayIndications:Seas onal allergic rhinitis 2 Sprays by nasal route daily. Reorder 11/24/2012 03/02/2013 montelukast (SINGULAIR) 10 mg tabletIndications:Ast hma Take 1 Tab by mouth daily. Reorder 11/24/2012 03/02/2013 nortriptyline (PAMELOR) 75 mg capsuleIndications:De pression Take 1 Cap by mouth daily. Reorder 11/24/2012 03/02/2013 omeprazole (PRILOSEC) 40 mg capsule Take 1 Cap by mouth daily. Reorder 12/01/2012 03/02/2013 ondansetron (ZOFRAN) 4 mg tablet Take 1 Tab by mouth daily as needed for Nausea. Reorder 11/24/2012 03/02/2013 pregabalin (LYRICA) 150 mg capsuleIndications:Ch ronic back pain Take 1 Cap by mouth 3 times daily. Reorder 11/24/2012 03/02/2013 ropinirole (REQUIP) 2 mg tabletIndications:Res tless legs syndrome Take 1 Tab by mouth at bedtime. Reorder 11/24/2012 03/02/2013 sertraline (ZOLOFT) 100 mg tabletIndications:Dep ression Take 2 Tabs by mouth daily. Reorder 11/24/2012 03/02/2013 tiotropium (SPIRIVA WITH HANDIHALER) 18 mcg inhalation capsuleIndications:As thma Inhale 1 Cap as directed daily. Reorder 11/24/2012 03/02/2013 documented as of this encounter Orders Equipment Count Last Ordered Date First Orde red Date GENERIC DME ORDER 1 03/02/2013 documented in this encounter Care Teams Meat Products Demonstrator Relationship Specialty Start Date End Date Jean Munoz MD [address] [place] [phone] PCP - General 12/31/08 Manny Rizzo MD [address] [place] [phone] 04/20/10 documented as of this encounter
--- OUTSIDE RECORDS SUMMARY | 2024-06-10 07:28 | XMS_ITS | Encounter Summary ---
Author Organization [facility] Address [address] [place] [address] Care Team Providers Care Cell Lead Name Role Phone Jean Munoz MD Primary Care Provider Manny Rizzo MD Unavailable Reason for Visit * Reason Onset Date Comments Medications Refill 03/13/2013 Encounter Details Date Type Department Care Team (Late st Contact Info) Description 03/13/2013 Refill [facility] Sleep Program - [address] [phone] Corrina Ac, RN [address] [place] [address] Medications Refill Social History Tobacco Use Types [...] the afternoon for narcolepsy 30 Tab 0 03/15/2013 04/10/2013 methylphenidate (RITALIN;METHYLIN) 20 mg tablet Take 2 Tabs by mouth daily. 60 Tab 0 03/15/2013 04/10/2013 documented in this encounter Miscellaneous Notes * Telephone Encounter - Corrina cA RN - 03/14/2013 1037 EDT Let pt know (methylphenidate) prescriptions ready for pharmacy picking tech at the Sleep Center. documented in this encounter Plan of Treatment Upcoming Encounters Date Type Department Care Team (Late st Contact Info) Description 06/29/2024 14:15 EDT Office Visit [facility][note 3] [address] [place], [place] [phone] Jean Munoz MD [address] [place] [phone] documented as of this encounter Visit Diagnoses Not on filedocumented in this encounter Discontinued Medications Medication Sig Discontinue Reason Start Date End Da te methylphenidate (RITALIN;METHYLIN) 20 mg tablet Take 2 Tabs by mouth daily. Reorder 02/14/2013 03/13/2013 methylphenidate (RITALIN;METHYLIN) 10 mg tablet Take one tab in the afternoon for narcolepsy Reorder 02/15/2013 03/13/2013 documented as of this encounter Care Teams Cell Lead Relationship Specialty Start Date End Date Jean Munoz MD [address] [place] [address] PCP - General 12/31/08 Manny Rizzo MD [address] [place] [phone] 04/20/10 documented as of this encounter
--- OUTSIDE RECORDS SUMMARY | 2024-06-10 07:29 | XMS_ITS | Encounter Summary ---
Author Organization [facility] Address [address] [place] [address] Care Team Providers Care Haul Truck Driver Name Role Phone Jean Munoz MD Primary Care Provider Manny Rizzo MD Unavailable Encounter Details Date Type Department Care Team (Late st Contact Info) Description 11/02/2012 Orders Only [facility] Sleep Program - [address] [address] Tiana Bacon [address] [place] [phone] Dizziness (Primary Dx) Social History Tobacco Use Types [...] Progress Notes * Tiana Bacon MD - 11/02/2012 1433 EST Called patient on Wednesday to discuss her recent ED evaluation. She has had 3 days of headache, but no other new symptoms. Will send headache diary for patient to monitor her headaches. Additionally, discussed that I would still like to obtain vessel study of head and neck. Will follow up with patient once results are back. documented in this encounter Plan of Treatment Upcoming Encounters Date Type Department Care Team (Late st Contact Info) Description 06/29/2024 14:15 EDT Office Visit [facility] [address] [place] [address] Jean Munoz MD [address] [place] [phone] documented as of this encounter Visit Diagnoses Diagnosis Dizziness- Primary [...] colon documented in this encounter Care Teams Haul Truck Driver Relationship Specialty Start Date End Date Jean Munoz MD [address] [place] [phone] PCP - General 12/31/08 Manny Rizzo MD [facility] [place] [phone] 04/20/10 documented as of this encounter
--- OUTSIDE RECORDS SUMMARY | 2024-06-10 07:29 | XMS_ITS | Encounter Summary ---
Author Organization [facility] Address [address] [place] [address] Care Team Providers Care Continuous Crusher Operator Name Role Phone Jean Munoz MD Primary Care Provider Manny Rizzo MD Unavailable Reason for Visit * Reason Onset Date Comments Appointment Related 12/16/2012 Encounter Details Date Type Department Care Team (Late st Contact Info) Description 12/16/2012 Telephone [facility] Rehabilitation Therapy - [facility] [address] [place] [address] Alban Reno, PT [address] [place] [address] Appointment Related Social History Tobacco Use Types [...] encounter Miscellaneous Notes * Telephone Encounter - Amanda Pillai - 12/16/2012 0842 EDT [facility] [address] [facility] [address] Telephone Intake Information for Scheduling NEW Patients for Therapy Script/referral Due to insurance, requested referral from Dr. Munoz. Received. Referring Provider: Dr. Tiana Bacon wrote referral, but due to insurance Dr. Cordova entered onein [facility]ISM. Diagnosis: Vertigo Complex Care Nurse needed? No Primary Insurance: [employer] If Medicaid: Have you been seen in therapy since September of this year? No By whom? N/A How many visits have you had since September of this year None Notes/other: Patient doesn't take any medications for her vertigo. She will try to have a hire car driver for her appt. Amanda Pillai 12/16/2012 documented in this encounter Plan of Treatment Upcoming Encounters Date Type Department Care Team (Late st Contact Info) Description 06/29/2024 14:[address] [facility] Medicine [facility] [address] [place] [address] Jean Munoz MD [address] [place] [phone] documented as of this encounter Visit Diagnoses Not on filedocumented in this encounter Care Teams Continuous Crusher Operator Relationship Specialty Start Date End Date Jean Munoz MD [address] [place] [phone] PCP - General 12/31/08 Manny Rizzo MD [address] [place] [phone] 04/20/10 documented as of this encounter
--- OUTSIDE RECORDS SUMMARY | 2024-06-10 07:29 | XMS_ITS | Encounter Summary ---
Author Organization [facility] Address [address] [place] [address] Care Team Providers Care Level Glass Vial Filler Name Role Phone Jean Munoz MD Primary Care Provider Manny Rizzo MD Unavailable Reason for Referral * (Routine/Next Available) - Closed Specialty Diagnoses / Procedures Referred By [facility] Referred To Contact Diagnoses Balance problem Procedures HEARING EVALUATION Shell Vallejo MD [address] [phone] Referral ID Status Reason Start Date Expiration Date Visits Re quested Visits Authorized [id number] Closed 01/18/2013 1 1 Reason for Visit * Reason Comments Otalgia Encounter Details Date Type Department Care Team (Late st Contact Info) Description 01/18/2013 9:55 EDT Office Visit [facility] ENT- [address] [phone] Shell Vallejo MD [address] [place] [phone] Balance problem (Primary Dx) Social History Tobacco Use Types [...] as of this encounter Progress Notes * Shell Vallejo MD - 01/18/2013 1035 EDT Ms Viera is a 52-year-old woman who is here today in consultation from Dr Tiana Bacon and Dr Munoz for dizzy spells. She notes that these started a few months ago. They were milder to begin with and have gradually slightly worsened. She notes symptoms that occur only when she is walking andwhen she makes a sudden move or turn, then she feels off balance. She may fall when this occurs. She has fallen a few times. She does not always have these symptoms. It is intermittent. It will oftentimes occur 3 or 4 times a day and last for a few minutes. She may feel mildly lightheaded, but doesnot feel like she is going to pass out. She has occasional spinning, but not always. She does not notice any spinning when she is turning her head when she is sitting. She has no spinning when she rolls over in bed at night. She did see Dr Bacon for a neurology evaluation. She felt that sherri had BPV. She had an MRI and MRA, which were negative. She has been to see Kriss Chavez who thinks she has BPV and recommended that she come here for evaluation. She has given her some exercises. The patient is doing the exercises, but does not feel like they have been helpful so far. She is notsure if she has any problems with her hearing. She does have a history of tinnitus over the last couple of years. She uses environmental masking for this. On physical exam, generally she is in no distress. She is well groomed. Her face reveals symmetric movement and is otherwise normal appearing. Her voice is of normal quality. Her nose externally is unremarkable. Internally, she has normal mucosa. Her mouth and oropharynx is within normal limits without lesions. Her neck reveals no masses or adenopathy. Salivary glands are normal to palpation. Herears including canals, TMs and auricles are within normal limits. An audiogram is done and this shows normal hearing except for the very highest frequencies. She [id number]% discrimination bilaterally. ASSESSMENT: Recurrent episode of primarily a sensation of off-balance. She does occasionally have aspinning sensation but not consistently. She only notices it when she is up and walking and moving around. It is unclear if this represents BPV or some other abnormality. PLAN: We will go ahead and get a VNG and see if this will help to pinpoint her problem. I will be seeing her in followup after that and we can go from there. documented in this encounter Procedure Notes * FINANCIAL ANALYST INTERN, SCAN 2 - 03/20/2013 0916 EDTAssociated Order(s): AUDIOGRAM - SCANNED documented in this encounter Plan of Treatment Upcoming Encounters Date Type Department Care Team (Late st Contact Info) Description 06/29/2024 14:15 EDT Office Visit [facility] [address] [place], [place] [phone] Jean Munoz MD [address] [place] [phone] Scheduled Orders Name Type Priority Associated Diagnoses Orde r Schedule HEARING EVALUATION Audiology Routine Balance problem Ordered: 01/18/2013 documented as of this encounter Procedures Procedure Name Priority Date/Time Associated Diagnosis Comments AUDIOGRAM - SCANNED 03/20/2013 9:16 EDT documented in this encounter Results * AUDIOGRAM - SCANNED (03/20/2013 9:16 EDT) 03/20/2013 9:16 EDT Narrative 03/20/2013 10:32 EDT Procedure Note FINANCIAL ANALYST INTERN, SCAN 2 - 03/20/2013 9:16 EDT Scan 2 Trip Motor Operator PROCEDURE/MINOR GURU GICAL ORDERABLES documented in this encounter Visit Diagnoses Diagnosis Balance problem- Primary Other symptoms involving nervous and musculoskeletal systems Screening for osteoporosis- Primary Special screening for osteoporosis Primary narcolepsy without cataplexy Chronic pain syndrome Chronic low back pain Lumbago Chronic use of opiate for therapeutic purpose Pain medication agreement Encounter for long-term (current) use of other medications Screen for colon cancer Special screening for malignant neoplasms, colon documented in this encounter Care Teams Level Glass Vial Filler Relationship Specialty Start Date End Date Jean Munoz MD [address] [place] [phone] PCP - General 12/31/08 Manny Rizzo MD [address] [place] [phone] 04/20/10 documented as of this encounter
--- OUTSIDE RECORDS SUMMARY | 2024-06-10 07:29 | XMS_ITS | Encounter Summary ---
Author Organization [facility] Address [address] [place] [address] Care Team Providers Care Electronics Computer Mechanic Name Role Phone Jean uMnoz MD Primary Care Provider Manny Rizzo MD Unavailable Reason for Visit * Reason Comments Follow-up h/o diplopia and dry eye. Had silicon plugs 01/22, fell out in about 1 month. Uses Doxycycline Ipo Qday, Restatsis QID and AT's Qhr in both eyes, helps with dryness. (Saw Dr. Rodriguez and Dr. Weiss) h/o narcolepsy, when feeling tired experiences diplopia. No changes in floaters and no flashes. Occ achey feeling in and around both eyes left eye worse than right eye. Encounter Details Date Type Department Care Team (Late st Contact Info) Description 10/17/2012 9:00 EST Office Visit [facility] Ophthalmology - Main [place] [address] [place] [address] Jorge Feng MD [address] [facility], [address] [place] [address] Social History Tobacco Use Types [...] of this encounter Progress Notes * Jorge Feng MD - 10/17/2012 1010 EST Chief Complaint Patient presents with ??? Follow-up h/o diplopia and dry eye. Had silicon plugs 01/22, fell out in about 1 month. Uses Doxycycline Ipo Qday, Restatsis QID and AT's Qhr in both eyes, helps with dryness. (Saw Dr. Rodriguez and Dr. Weiss) h/o narcolepsy, when feeling tired experiences diplopia. No changes in floaters and no flashes. Occ acheyfeeling in and around both eyes left eye worse than right eye. HPI The patient is a 51 y.o. female presents for dry eye follow up. Last exam with Dr. Rodriguez in May. 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 Pt c/o persistent dry eye despite use of restasis, hourly AT, lid hygiene with steri lid, flax oil supplement and humidifier. C/o intermittent binocular diplopia that has been unchanged since presntation in 2010. Right Eye: Blurred Vision;Pain/Soreness;Dryness;Burning;Floaters;Mucous / Discharge Left Eye: Blurred Vision;Pain/Soreness;Dryness;Burning;Floaters;Mucous / Discharge Visual Aid: Glasses (wearing someone elses glasses) Current Rx Age (1 years.) Location: Both eyes Pain: 4 Quality: Aching Severity: Mild Duration: Years (noticing problem for about the past year.) Timing: Waxes and wanes Lasts: Hours Context: Dry eyes and diplopia and blurry vision Modifying factors: Associated Signs & Symptoms: Attestation: ROS Constitutional: NL ENT/Mouth NL Cardiovascular: NL Respiratory: (Asthma, emphazema) Gastrointestinal: NL Genitourinary: NL Musculoskeletal: Muscle Pain;Joint Pain (knee and back) Integumentary: Neurologic: Headache (Narcolepsy) Psychiatric: Depression (anxiety) Endocrine: NL Hematologic: NL Immunologic: Drug Allergy Strap Cutting Machine Operator: Menopause Exposures: None Other: Attestation: Allergies include: Toradol and Motrin Patient Active Problem List Diagnoses ??? Severe [...] Degeneration of lumbar or lumbosacral intervertebral disc Outpatient Prescriptions Marked as Taking for the 10/17/12 encounter (Office Visit) with Jorge Feng MD Medication Sig ??? methylphenidate (RITALIN;METHYLIN) 10 mg tablet Take one tab in the afternoon for narcolepsy ??? pregabalin (LYRICA) 150 mg capsule Take 1 Cap by mouth 3 times daily. ??? hydrocodone-acetaminophen (LORTAB) 5-500 mg tablet Take 1 Tab by mouth every 6 hours as needed for Pain for 28 days. ??? fluticasone-salmeterol (ADVAIR HFA) 230-21 mcg/actuation inhaler Inhale 2 Puffs as directed 2 times daily. ??? methylphenidate (RITALIN SR; METADATE ER; METHYLIN ER) 20 mg SR tablet Brand only. Take 2 tabs in the morning for narcolepsy. ??? zolpidem (AMBIEN) 10 mg tablet Take 1 Tab by mouth at bedtime as needed for Sleep. ??? SINGULAIR 10 mg tablet TAKE ONE TABLET BY MOUTH AT BEDTIME ??? cyclosporine (RESTASIS) 0.05 % ophthalmic emulsion Place 1 Drop into both eyes 4 times daily. ??? tiotropium (SPIRIVA WITH HANDIHALER) 18 mcg inhalation capsule Inhale 1 Cap as directed daily. ??? promethazine (PHENERGAN) 25 mg tablet Take 1 Tab by mouth every 6 hours as needed for Nausea. ??? ipratropium-albuterol (DUO-NEB) 0.5 mg-3 mg(2.5 mg base)/3 mL nebulizer solution Take 3 mL by nebulization 4 times daily. ??? baclofen (LIORESAL) 10 mg tablet Take 0.5-1 Tabs by mouth 3 times daily as needed. ??? fexofenadine (JUDITH) 180 mg tablet Take 1 Tab by mouth daily. ??? mometasone (NASONEX) 50 mcg/actuation nasal spray 2 Sprays by Nasal route daily. ??? nortriptyline (PAMELOR) 75 mg capsule Take 1 Cap by mouth daily. ??? omeprazole (PRILOSEC) 20 mg capsule Take 1 Cap by mouth daily. ??? sertraline (ZOLOFT) 100 mg tablet Take 2 Tabs by mouth daily. ??? levalbuterol (XOPENEX HFA) 45 mcg/actuation inhaler Inhale 1-2 Puffs as directed every 4 hours as needed for Wheezing. ??? ropinirole (REQUIP) 2 mg tablet TAKE ONE TABLET BY MOUTH AT BEDTIME ??? hydroxypropyl methylcellulose (ISOPTO TEARS) 0.5 % ophthalmic solution Place 1 Drop into both eyes 5 times daily. ??? docusate sodium (COLACE) 100 mg capsule Take 1 Cap by mouth 2 times daily as needed for Constipation. Past Medical History Diagnosis Date ??? UTI [...] ??? Laceration 12/26/09 ??? Dizziness 12/26/09 ??? Cataract ??? Wears glasses ??? Arthritis ??? Back pain ??? Back pain ??? Ankle fracture, right ??? Joint pain ??? Joint swelling ??? Numbness ??? Narcolepsy ??? Asthma ??? Anxiety ??? Depression ??? Pneumonia 04/05/2012 ??? Chronic fatigue ??? Wears glasses ??? Abscess of face 09/21/2010 ??? Atypical pneumonia 04/05/2012 ??? Edema of leg 12/31/2009 ??? Fracture of right ankle 03/30/2010 Past Surgical History Procedure Date ??? Salpingectomy 1982 ectopic ??? Hysterectomy, vaginal menorrhagia ??? Shoulder arthroscopy 10/15 left, with acromioplasty ??? Gastric fundoplication 03/02/07 [facility] ??? Cervical spine surgery 12/31/08 discectomy, fusion C4-7 Dr Dewitt ??? Colonoscopy 07/29/09 repeat ??? Ankle fracture surgery 04/01/[address] [facility] ??? Cyst incision and drainage 09/17/10 [...] Degen Neg Hx ??? Blindness Neg Hx Patient reports that she quit smoking about 2 years ago. Her smoking use included Cigarettes. She has a 70 pack-year smoking history. She has never used smokeless tobacco. She reports that she does not drink alcohol or use illicit drugs. Recent HbA1c: Lab Results Component Value Date HGBA1C 6.0 04/07/2012 Base Ophthalmology Exam Visual Acuity Right Left Both Dist cc 20/25 20/25 Near cc J1 J2 Method: Snellen - Linear Tonometry Right Left Pressure 15 14 Method: Applanation Time: 9:40 Wearing Rx Sphere Cylinder Add Right +1.25 Sphere +1.50 Left +1.25 Sphere +1.50 Age: 1yrs Type: Bifocal Manifest Refraction Sphere Cylinder Dist Add Near Right +1.75 Sphere 20/20 +2.25 J1+ Left +1.50 Sphere 20/20 +2.25 J1+ Dilation Both eyes: 1.0% Mydriacyl, 2.5% Phenylephrine @ 9:42 Pupils Pupils Dark Light React APD Right PERRL 4 3 Brisk None Left PERRL 4 3 Brisk None Visual Dalal Right Left Result Full Full Extraocular Movement Right Left Result Full Full Final Rx Sphere Cylinder Add Right +1.75 Sphere +2.25 Left +1.50 Sphere +2.25 Type: PAL Expiration Date: 10/18/2013 Main Ophthalmology Exam External Exam Right Left External Normal Normal Slit Lamp Exam Right Left Lids/Lashes 2+ Blepharitis, inf pucta is patent 2+ Blepharitis Conjunctiva/Sclera White and quiet White and quiet Cornea early TFBU and PEE early TFBU and PEE Anterior Chamber Deep and quiet Deep and quiet Iris normal normal Lens 1+ Nuclear sclerosis, 1+ Cortical cataract 1+ Nuclear sclerosis, 1+ Cortical cataract Vitreous Normal Normal Comments: RUL everted 2 1/2 mm telangiestsia at upper tarsal border Fundus Exam Right Left Disc Normal Normal C/D Ratio 0.3 0.3 Macula Normal Normal Vessels Normal Normal Neuro/Psych Oriented x3: Yes Mood/Affect: Normal DIAGNOSTIC TESTS: IMPRESSION & PLAN: Liset was seen today for follow-up. 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 Pt elects to observe. Blepharitis, unspecified - both eyes: with dry eye component. Pt advised to use artifical tears andointment for symptom relief. Warm compresses TID and eyelid scrubs daily. Handout given on the condition. Dry eyes - both eyes Options: try thicker eye drops like Celluvisc and or lacrilube May try punctal plugs again, pt declines at this time. Pt opts to try the thicker eye drops and to do warm compresses Diplopia - not present today, pt is ortho in all dalal of gaze. May be due to decompensated phoriaor secondary to dry eye. Follow up in 6-9 months, or as needed. I have reviewed the patient's past medical, family, social and surgical history. I have also reviewed the patient's medications, allergies, and problem list. I performed my own HPI and have reviewed the tech's ROS as well. I personally completed this exam myself. Jorge Feng MD Patient Education Topic: Blepharitis / Dry Eyes Method: Verbal Taught to: Patient Barriers: None Outcomes: independent and verbalized understanding Signature: Jorge Feng MD The patient was instructed to call our office or go to emergency room if worse vision, worse symptoms, or new/other concerns arise. documented in this encounter Plan of Treatment Upcoming Encounters Date Type Department Care Team (Late st Contact Info) Description 06/29/2024 14:15 EDT Office Visit [facility] [address] [place] [address] Jean Munoz MD [address] [place] [phone] documented as of this encounter Visit Diagnoses Diagnosis Other and combined forms of senile cataract- Primary Blepharitis, unspecified Dry eyes Tear film insufficiency, unspecified Diplopia Screening for osteoporosis- Primary Special screening for [...] Right eye Left eye Dist cc 20/25 20/25 Near cc J1 J2 Tonometry (Applanation, 9:40) Right eye Left eye Pressure 15 14 Pupils Pupils Dark Light React APD Right eye PERRL 4 3 Brisk None Left eye PERRL 4 3 Brisk None Visual Dalal Right eye Left eye Full Full Extraocular Movement Right eye Left eye Full Full Neuro/Psych Oriented x3: Yes Mood/Affect: Normal Dilation Both eyes: 1.0% Mydriacyl, 2 .5% Phenylephrine @ 9:42 External Exam Right eye Left eye External Normal Normal Slit Lamp Exam Right eye Left eye Lids/Lashes 2+ Blepharitis, inf pucta is patent 2+ Blepharitis, patent punctum Conjunctiva/Sclera White and quiet White and sissy et Cornea early TFBU and PEE early TFBU an d PEE Anterior Chamber Deep and quiet Deep and quiet Iris normal normal Lens 1+ Nuclear sclerosis , 1+ Cortical cataract 1+ Nuclear sclerosis, 1+ Cortical cataract Vitreous Normal Normal RUL everted 2 1/2 mm telangiecstsia at upper tarsal border Fundus Exam Right eye Left eye Disc Normal Normal C/D Ratio 0.3 0.3 Macula Normal Normal Vessels Normal Normal Wearing Rx Sphere Cylinder Add Right eye +1.25 Sphere +1.50 Left eye +1.25 Sphere +1.50 Age: 1yrs Type: Bifocal Manifest Refraction Sphere Cylinder Dist VA Add Near VA Right eye +1.75 Sphere 20/20 +2.25 J1+ Left eye +1.50 Sphere 20/20 +2.25 J1+ Final Rx Sphere Cylinder Add Right eye +1.75 Sphere +2.25 Left eye +1.50 Sphere +2.25 Type: PAL Expiration Date: 10/18/2013 Care Teams Electronics Computer Mechanic Relationship Specialty Start Date End Date Jean Munoz MD [address] [place] [phone] PCP - General 12/31/08 Manny Rizzo MD [address] [place] [phone] 04/20/10 documented as of this encounter
--- OUTSIDE RECORDS SUMMARY | 2024-06-10 07:29 | XMS_ITS | Encounter Summary ---
Author Organization [facility] Address [address] [place] [address] Care Team Providers Care Public Health Professor Name Role Phone Jean Munoz MD Primary Care Provider Manny Rizzo MD Unavailable Reason for Visit * Reason Onset Date Comments Medications Refill 12/19/2012 Encounter Details Date Type Department Care Team (Late st Contact Info) Description 12/19/2012 Refill [facility] - [address] [address] Tiana Bacon [address] [place] [phone] Medications Refill Social History Tobacco Use [...] the afternoon for narcolepsy 30 Tab 0 12/21/2012 01/16/2013 methylphenidate (RITALIN SR; METADATE ER; METHYLIN ER) 20 mg SR tablet Brand only. Take 2 tabs in the morning for narcolepsy. 60 Tab 0 12/21/2012 01/16/2013 documented in this encounter Miscellaneous Notes * Telephone Encounter - Corrina Ac RN - 12/20/2012 1019 EDT Let pt know her ritalin prescriptions ready for pickling tank operator [facility]. * Telephone Encounter - Duy Booth - 12/19/2012 1457 EDT Calling to request refills of Ritalin (brand only) to be picked up on Wednesday. documented in this encounter Plan of Treatment Upcoming Encounters Date Type Department Care Team (Late st Contact Info) Description 06/29/2024 14:15 EDT Office Visit [facility] [address] [place] [address] Jean Munoz MD [address] [place] [phone] documented as of this encounter Visit Diagnoses Not on filedocumented in this encounter Discontinued Medications Medication Sig Discontinue Reason Start Date End Da te methylphenidate (RITALIN SR; METADATE ER; METHYLIN ER) 20 mg SR tablet Brand only. Take 2 tabs in the morning for narcolepsy. Reorder 11/23/2012 12/20/2012 methylphenidate (RITALIN;METHYLIN) 10 mg tablet Take one tab in the afternoon for narcolepsy Reorder 11/23/2012 12/20/2012 documented as of this encounter Care Teams Public Health Professor Relationship Specialty Start Date End Date Jean Munoz MD [address] [place] [phone] PCP - General 12/31/08 Manny Rizzo MD [address] [place] [phone] 04/20/10 documented as of this encounter
--- OUTSIDE RECORDS SUMMARY | 2024-06-10 07:29 | XMS_ITS | Encounter Summary ---
Author Organization [facility] Address [address] [place] [address] Care Team Providers Care Rod Cup Filler Name Role Phone Jean Munoz MD Primary Care Provider Manny Rizzo MD Unavailable Reason for Visit * Reason Onset Date Comments Appointment Related 11/25/2012. IRC P AND DR. GEORGE Encounter Details Date Type Department Care Team (Late st Contact Info) Description 11/25/2012 Telephone [facility] Pulmonology & Critical Care - [address] [phone] Jeanette George MD [address] [place] [address], [facility] [address] [place] [address] Appointment Related (12.13.[address] GEORGE) Social History Tobacco Use Types Packs/Day Years [...] Miscellaneous Notes * Telephone Encounter - Amanda Gillette - 11/28/2012 1041 EDT Pt will keep Neuro appt for 12/13 and go to the March reminder list for Dr George. She is not havingany pulmonary problems at this time and will call if she needs anything between now and March. * Telephone Encounter - Rachel Gann - 11/25/2012 1443 EDT Per patient, requesting a call back. Per patient, needs to rsc the 12.13.2012 9:30a.m IRCP and 10:00 Dr. George appt's because of another appt that she has at the same time. I could not rsc this apptat the time of the call, no schedule for Dr. George. documented in this encounter Plan of Treatment Upcoming Encounters Date Type Department Care Team (Late st Contact Info) Description 06/29/2024 14:15 EDT Office Visit [facility] [address] [place] [address] Jean Munoz MD [address] [place] [phone] documented as of this encounter Visit Diagnoses Not on filedocumented in this encounter Care Teams Rod Cup Filler Relationship Specialty Start Date End Date Jean Munoz MD [address] [place] [phone] PCP - General 12/31/08 Manny Rizzo MD [address] [place] [phone] 04/20/10 documented as of this encounter
--- OUTSIDE RECORDS SUMMARY | 2024-06-10 07:29 | XMS_ITS | Encounter Summary ---
Author Organization [facility] Address [address] [place] [address] Care Team Providers Care Stuffed Casing Tier Name Role Phone Jean Munoz MD Primary Care Provider Manny Rizzo MD Unavailable Reason for Visit * Reason Onset Date Comments Medication Problem 11/23/2012 Advair Encounter Details Date Type Department Care Team (Late st Contact Info) Description 11/23/2012 Refill [facility] Pulmonology & Critical Care - [address] [phone] Jeanette Virk MD [address] [place] [address], [address] [place] [address] Medication Problem (Advair) Social History Tobacco Use Types Packs/Day [...] te fluticasone-salmeterol (ADVAIR HFA) 230-21 mcg/actuation inhalerIndications:Asthm a Inhale 2 Puffs as directed 2 times daily. 3 Inhaler 3 11/23/2012 03/02/2013 documented in this encounter Miscellaneous Notes * Telephone Encounter - Nakita Esteban RT - 11/23/2012 1347 EDT Advair HFA order changed to dispense 3 month supply per insurance requirements. * Telephone Encounter - Diya Frankel - 11/23/2012 1233 EDT Kareen at [facility] is calling because [place] Medicaid will not cover the Advair inhaler script unlessit is written for a 3 month supply. documented in this encounter Plan of Treatment Upcoming Encounters Date Type Department Care Team (Late st Contact Info) Description 06/29/2024 14:15 EDT Office Visit [facility] [address] [place] [address] Jean Munoz MD [address] [place] [phone] documented as of this encounter [...] Da te fluticasone-salmeterol (ADVAIR HFA) 230-21 mcg/actuation inhaler Inhale 2 Puffs as directed 2 times daily. Reorder 09/28/2012 11/23/2012 documented as of this encounter Care Teams Stuffed Casing Tier Relationship Specialty Start Date End Date Jean Munoz MD [address] [place] [phone] PCP - General 12/31/08 Manny Rizzo MD [address] [place] [phone] 04/20/10 documented as of this encounter
--- OUTSIDE RECORDS SUMMARY | 2024-06-10 07:29 | XMS_ITS | Encounter Summary ---
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 affect. Her behavior is normal. Thought content normal. Radiology orders: MR HEAD WO CONTRAST Imaging Results MR HEAD WO CONTRAST (Final result) Result time:10/26/12 1323 Final result Narrative: MRI HEAD WITHOUT CONTRAST October 26, 2012 Indication: Intermittent vertigo. Mild left-sided pronator drift. Comparison: None available. Technique: Sagittal T1, axial T1, T2, T2 FLAIR, SWI and DWI. Findings: There is prominence of the supratentorial sulci which is slightly greater than expected for patient age, consistent with cortical volume loss. This has a frontotemporal predominance. The ventricles are normal in caliber. There is no midline shift. The basilar cisterns are patent. Scattered punctate foci of high T2 signal intensity are noted in the periventricular and subcortical white matter of the cerebral hemispheres, the number also slightly greater than expected for patient age. No acute infarct is identified on the DWI sequence. Flow-voids are present in the major intracranial arteries and dural venous sinuses. There are no paranasal sinus air-fluid levels. The mastoid air cells are clear. Gross orbital abnormality is not appreciated. Impression: 1. No acute intracranial abnormality identified. 2. Cortical volume loss slightly greater than expected for patient age. Frontotemporal predominance can be seen in the setting of certain neurodegenerative disorders such as frontotemporal dementia. 3. Tentorial white matter T2 hyperintensity is slightly greater in number than expected for patient age. Differential considerations are broad and include small vessel ischemic change, particularly in the setting of diabetes, hypertension or smoking. Other entities including demyelination and vasculopathy, including migraine, could produce a similar appearance. Procedures ED Course: A medical screening exam was performed. 51-year-old female seen in the ED at the request of Dr. Bacon for further evaluation of nonspecific dizziness. In the ED the patient does demonstrate very slight unsteadiness in the left leg with tandem walk, and very slight left arm pronator drift. MRI is performed which shows no evidence of CVA. I discussed this patient with the neurology team. Initial plan was that the patient would be discharged to home with outpatient follow-up. It was later communicated that the neurology team wished to evaluate the patient in the ED. She was seen by the resident but the patient left the ED unannounced prior to attending evaluation. Clinical picture on my evaluation is most consistent with complicated migraine. Disposition: Discharged The patient's pain was managed to an adequate level weighing risk vs. benefit of further medications. Upon departure from the Emergency Department, the patient's pain was 0 on a zero to ten scale. Condition at departure from the Emergency Department: Stable Discharge Prescriptions New Prescriptions No Discharge Prescriptions for this patient MDM Number of Diagnoses or Management Options Dizziness: migraine headaches: Diagnosis management comments: 4 Amount and/or Complexity of Data Reviewed Review and summarize past medical records: yes Discuss the patient with other providers: yes Independent visualization of images, tracings, or specimens: yes Final diagnoses: Dizziness migraine headaches PCP: Jean Munoz MD 10/29/2012 7:23 * Camryn Wilburn RN - 10/26/2012 1154 EST Blood drawn via saline lock per protocol, blue, purple, sst tube(s) sent to lab per order. * Camryn Wilburn RN - 10/26/2012 1130 EST Pt c/o double vision, unsteady gate, and dizzyness x 2 weeks, worsening, presented to neuro office today, sent to ED for eval. Dr. Rivera at bedside. * Shelbie Delaney RN - 10/26/2012 1040 EST Slight droop on right side with smiling. No arm drift, speech normal. Oriented x 3. * Shelbie Delaney RN - 10/26/2012 1036 EST TCALL: LISET MEADOWS [id number] TCALL: Referred to ED by Dr Bacon for evaluation of new onset dizziness. Has hx diplopia. To be seen by ED staff and consult neurology. Plan: ?MRI. Dr Bacon available if questions. [email or web address] * Manjeet Cortes - 10/26/2012 1035 EST TCALL: LISET MEADOWS [id number] TCALL: Referred to ED by Dr Bacon for evaluation of new onset dizziness. Has hx diplopia. To be seen by ED staff and consult neurology. Plan: ?MRI. Dr Bacon available if questions. kidash documented in this encounter Miscellaneous Notes * Scanned Note-Null - ACADEMIC REGISTRAR, SCAN 2 - 10/28/2012 1049 EST * ED Consult - Darius Nagy MD - 10/27/2012 0130 EST [facility] ED CONSULTATION SERVICE DATE: 10/26/2012 ID: The patient is a 51-year-old right-handed woman with an extensive medical history significant for chronic migraine headache, narcolepsy, for which she follows up with Dr Tiana Bacon, as well asa history of anxiety and depression, history of panic attack, chronic neck and back pain. The patient is referred to the emergency department today on 10/26/2012 by her outpatient neurologist, Dr Tiana Bacon for further evaluation of paroxysmal episodes of dizziness and feeling off balance that had been present for the past 4-6 weeks and to rule out cerebrovascular disease as potentialetiology HISTORY OF PRESENT ILLNESS: History is directly obtained by chart review as well as discussion withpatient at bedside. In retrospect, the patient relates history of periodic and episodic dizziness with a feeling of room spinning, feeling of disequilibrium that had been paroxysmal and episode being present for at least the past 4-6 weeks. She is somewhat a fair historian and actually believes that those episodes probably have even been present before but not that bothersome. She notes that those episodes typicallyaccompanies her headache, which she has been chronically suffering from and has been carrying the diagnosis of chronic migraine headache. Actually, she describes her migraine as holocephalic, mostly on the right side of her head, but occasionally may involve her left side. Her migraine typically is associated with visual aura, and she describes it actually as a scintillating scotoma with occasional zigzag lines. The patient believes that her dizziness and feeling of balance is typically associated with her headache; and typically worsens as her headache worsen as well. Her headache intensity typically varies anywhere from 4 up to9 in intensity and may last minutes to hours. She has used triptans (Sumatriptan) in the past and recently with fair response. She also used prn NSAIDs/OTC with fair response as well. She does not bring a headache log with her during this ER visit, but tells me she believes she probably had over 7 or 8 days of headaches in the past month. As mentioned, her dizziness is typically vertiginous and is non positional. She sometimes has associated nausea with those episodes, but does not believe that she has had vomiting with those episodes. She also notes intermittent feeling of palpitation, but again, the patientis a somewhat a vague historian and is not sure if per se those feelings of palpitations are triggered by her episode of dizziness. The patient is unaware of any recent falls, any neck trauma, or any recent or significant head injury. She is unaware of any prior diagnosis of TIA or stroke. She is a smoker and continues to smoke at this time. 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 The patient does not believe that those episodes of diplopia are related to her current dizziness and vertigo. The patient denies awareness of any prior episode of clinical stroke or being told to have had a stroke in the past. The patient is also unaware of a TIA either. The patient denies any history of seizure or epilepsy disorder. The patient denies any episode of focal weakness, problems with speech, thinking, swallowing, or abnormal/involuntary movement with her episodes of dizziness or headaches. No worsening of chronic obstructive lung disease other than her baseline. As mentioned; patient carries the diagnosis of narcolepsy and has been following with Dr. Terrell outpatient. PAST MEDICAL HISTORY: This is extensive and I reviewed that in the patient's chart and with patient. This includes prior episodes of UTI, pharyngitis, sinusitis, chronic low back pain, history of chronic migraine headache with aura, history of narcolepsy, history of anxiety, history of panic attacks, history of depression, prior history of spinal surgery and chronic back pain, COPD, irritable bowel syndrome and hypertension. PAST SURGICAL HISTORY: This is significant for prior salpingectomy in 1981, in the setting of an ectopic . She also underwent a hysterectomy, transvaginally in 1993, secondary to severe menorrhagia. The patient also underwent shoulder arthroscopy specifically in 10/2001 secondary to chronic shoulder pain, and underwent at that same time, acromioplasty. She also underwent Aspen gastric fundoplication in 02/2007. As mentioned, patient also with multiple prior back surgeries including cervical spine surgery in [address] Dewitt and including diskectomy and multilevel fusion at level of C4 to C7. She also had left ankle fracture at [facility] that necessitated ORIF at [facility]. She also underwent fine needle aspiration in 09/2010 for a cyst of her left cheek. SOCIAL HISTORY: The patient is a former smoker and had smoked 2 packs daily for the past 35 years, but endorsed having quit cigarettes in 10/2010; but yet; she intermittently smokes cigarettes once in a while. The patient denies any drugs in any form. She endorsed rarely to occasional use of alcohol (less than 1 drink / weekly) FAMILY HISTORY: Significant for esophageal cancer in her father, history of myocardial infarction in her father, cataract in her father as well Her mother suffered from migraine headaches as well as cataracts and had some sort of cancer of thelung and bone. Her maternal grandmother had CA and some sort of cardiac disease which patient could not specify. Her paternal grandmother suffered from leukemia MEDICATIONS: Those have been reviewed in the patient's chart and with patient. This include methylphenidate, for which she takes 2 tablets of 20 mg in the morning and evening for narcolepsy. She alsotakes an additional 10 mg tablets of methylphenidate in the afternoon. She is on Singulair as needed for shortness of breath. She takes pregabalin 150 mg three times daily. She takes Lortab as neededfor pain. She is also on fluticasone-salmeterol inhaler for shortness of breath. She is on Ambien as needed for sleep. The patient also takes Phenergan as needed for dizziness and nausea. She is on aDuoNeb inhaler as needed for shortness of breath. The patient also takes fexofenadine daily for allergy. She is on mometasone as needed for shortness of breath. She also takes nortriptyline 75 mg daily, omeprazole 20 mg daily, sertraline 100 mg twice daily. She takes levalbuterol 1 to 2 puffs as needed for severe wheezing. The patient also takes ropinirole 2 mg tablet at bedtime. She also takes hydroxypropyl methylcellulose ophthalmic solution for both eyes 5 times daily. The patient takes docusate sodium as needed forsevere constipation. ALLERGIES: TORADOL, in the form of hives. MOTRIN in the form of itching and hives. REVIEW OF SYSTEMS: A 12-point review of systems was performed as per items listed and noted in the HPI. All other review of systems are negative unless otherwise noted. OBJECTIVE: Her vital signs during this ER visit include: A pulse of 75 with a regular rate and rhythm. Her respirations are even and unlabored and her blood pressure is 127/75 mmHg. Her oxygen saturation is above 97% on room air. General examination: She appeared alert, comfortable, without any distress. She was sitting comfortable in her bed and talking on her cell phone when I gently answered and greeted the patient by her name. Her skin appeared normal without any obvious rashes or lesion. She was normocephalic without any obvious abnormality or any clear trauma. Her eyes were clear and her corneas/conjunctivae were clear as well. Her extraocular range of motions are intact. Her lips, and tongue were normal and so was her teeth and gums. Her neck was supple, symmetrical, with a midline trachea, and I could not appreciate any JVD or carotid bruit bilaterally. Lung examination: Clear to auscultation bilaterally with the exception of rare wheezing. Heart was with a regular rate and rhythm with an S1, S2, without any clear appreciated murmur. Extremities were all warm and well perfused. Neurological exam: Her mental status was that of an alert and oriented person to place, date, time and disposition. Her memory was grossly intact to current medical events; although I did not formally test her memory function. She did not have any evidence of expressive or receptive aphasia, and was very fluent during my current encounter, and was able to name and provide adequate medical history as needed. Her speech was clear, spontaneous, and fluent with a normal volume intonation. There was no apparent neglect or inattentiveness. On cranial nerve examination her visual dalal were clear and full to examination and confrontation. Cranial nerves III- was intact to examination without any appreciable nystagmus, any ptosis, or any anisocoria noted. Cranial nerve V was normal to bulk and tone and she did have an intact sensation in V1, V3I distribution bilaterally. Facial strength was symmetric bilaterally and she would wrinkle her head and forehead without any deficit or asymmetry noted. Nasolabial folds and palpebral folds appeared symmetric bilaterally. Hearing was grossly intact bilaterally. There was no dysphonia, dysarthria and she had a normal palatal and uvular elevation. Her tongue was midline without any deviation, atrophy and fasciculation. On motor examination, she did have normal bulk and tone throughout for age. Her strength was grossly symmetric and equal bilaterally in her upper extremities or quantified as 5/5 to shoulder abduction, elbow flexion/extension, wrist flexion and extension, finger flexors and extensors, and abductorsbilaterally. Her leg strength was 5/5 symmetrically throughout to hip flexion and extension, knee fl exion and extension, and ankle dorsiflexion and plantar flexion bilaterally. Sensory exam was unremarkable to light touch, pinprick, temperature and proprioception throughout. Vibration sense was grossly intact throughout as well. Reflexes: Deep tendon reflexes were symmetric, however, were noted to be hyperreflexic throughout with a 3/4 biceps, triceps, and brachioradialis bilaterally. She also had 3/4 patellar bilaterally. Her Achilles were 2/4. She had a negative Olivares bilaterally. She had bilateral downgoing plantar reflexes bilaterally. Coordination: Remarkably she had intact normal rapid alternating movements bilaterally without any evidence of dysdiadochokinesia. [id number] bilaterally was intact and symmetric throughout without any dysmetria or overshooting. She was able to perform [id number] without any difficulty. Station and gait: I did ask the patient to stand up with her eyes open and she was able to maintainthat well. Romberg testing was without any difficulty, and she also had a negative pull test. Her gait was symmetric, narrow-based with adequate arm swing and heel strike and without any asymmetry orobvious gait difficulty with the exception of a subtle left limping gait that she attributes to herchronic ankle problem (prior ankle fracture) DATA REVIEW: I had previously reviewed prior medical record including current imaging, (MRI), priorlabs, and data. Relevant information have been included in HPI and below under data. DATA: Current labs performed in the ER include a basic and comprehensive metabolic panel noted for sodium level of 142, potassium 4.7, CO2 of 24, chloride 108, BUN 16, creatinine 0.61. Her glucose level was 102 mg/dL. Her calculated calcium was 8.9, phosphorus 3 and magnesium 2.3. Routine hematology showed a white count of 6.93 and a hemoglobin of 12.9. Her platelets were 263. Differential on her hemagram showed a lymphocytic count of 34.8%, neutrophils 52.2%, and monocytes of8.2%. Her INR is 0.9, PTT 2.7, and pro time 10 seconds. Regarding imaging, the patient underwent an MRI head without contrast that was requested and performed by ED service prior to neurological evaluation and I had a chance to personally review and visualize her current MRI imaging. In brief, her MRI imaging did not show any evidence of acute infarction, as well as no evidence of hemorrhage, or intracranial or extracranial mass. However, there was cortical volume loss that was slightly greater than expected for this patient's age, and formal radiological interpretation noted that this could be seen in the setting of certain neurodegenerative disorder such as frontotemporal dementia. Additionally, she was noted with some tentorial white matter T2 hyperintensity slightly greater than expected in this patient, with again a differential entertained by the radiology service that may include diabetes, hypertension, smoking, as well as migraine, or demyelination or vasculopathy. ASSESSMENT AND RECOMMENDATIONS: In brief, this is a 51-year-old right-handed woman with a complicated medical history notable for chronic migraine headache with aura, narcolepsy, anxiety, history of panic attacks, depression and chronic neck and back pain, who presentS to [facility] 10/26/2012, for further evaluation of paroxysmal episodes of dizziness and vertigo that had been concurrent to her current migraine attacks; and have been noted for the past 4-6 weeks. Her current neurological examination at the time of assessment in the ER is unremarkable as summarized under neurological examination. MRI head without contrast that was performed in the ER did not reveal any evidence of acute infarction; however, was noted for some nonspecific T2 signal abnormality that is greater than expected in this patient for age, which again are nonspecific, but can be seen in the setting of chronic migraine, hypertension, smoking, and diabetes. Additionally, greater than expected atrophy was noted in this patient. At this time of evaluation; patient was ruled out for acute infarction as initially referred for [facility] ER but otherwise a non-focal neurological exam and a MRI that did not demonstrate any evidence of acute infarction, hemorrhage or mass. The etiology of her paroxysmal episode of vertigo in this patient with complex medical history as summarized above and a history of migraine headaches with aura; likely point toward the diagnosis of migrainous vertigo. Current non-focal neurological exam (with the exception of increased DTR; which per patient are her baseline); makes a peripheral cause of vertigo less likely as well. At this time; patient do not need any further acute/emergent neurological work-up. I did however encourage the patient to further keep a clear and detailed headache log and further urged patient to document a log regarding her paroxysmal episodes of dizziness/vertigo; and encouraged her to follow-up with her PCP and neurologist. I had the opportunity to staff the initial presentation of this patient with the neurology attending on-call (Dr Tiana Bacon). However, the patient was discharged from the ER at the discretion of the ER Attending (Dr. John Rivera) prior to being officially staffed or seen by a neurology attending. Thank you very much for this opportunity to the involved in the care of this patient. 07 47 PM / Darius Nagy MD lg Confirmation: [id number] Dictation ID: [id number] documented in this encounter Plan of Treatment Upcoming Encounters Date Type Department Care Team (Late st Contact Info) Description 06/29/2024 14:15 EDT Office Visit [facility] [address] [place] [address] Jean Munoz MD [address] [place] [id number] documented as of this encounter Procedures Procedure Name Priority Date/Time Associated Diagnosis Comments MR HEAD WO CONTRAST 10/26/2012 1 2:21 EST SCREENING GLUCOSE STAT 10/26/2012 11: 28 EST DIFFERENTIAL Routine 10/26/2012 11:28 EST PTT STAT 10/26/2012 11:28 EST PROTIME STAT 10/26/2012 11:28 EST COMPLETE BLOOD COUNT Routine 10/26/2012 11:28 EST COMPLETE BLOOD COUNT AND DIFFERENTIAL STAT 10/26/2012 11:28 EST BUN STAT 10/26/2012 11:28 EST PHOSPHORUS STAT 10/26/2012 11:28 EST MAGNESIUM STAT 10/26/2012 11:28 EST CREATININE STAT 10/26/2012 11:28 EST CALCIUM STAT 10/26/2012 11:28 EST ELECTROLYTES STAT 10/26/2012 11:28 EST documented in this encounter Results * MR HEAD WO CONTRAST (10/26/2012 12:21 EST) Anatomical Region Laterality Modality Other 10/26/2012 12:2 1 EST 10/26/2012 13:23 EST Narrative 10/26/2012 13:23 EST MRI HEAD WITHOUT CONTRAST October 26, 2012 Indication: Intermittent vertigo. Mild left-sided pronator drift. Comparison: None available. Technique: Sagittal T1, axial T1, T2, T2 FLAIR, SWI and DWI. Findings: There is prominence of the supratentorial sulci which is slightly greater than expected for patient age, consistent with cortical volume loss. This has a frontotemporal predominance. The ventricles are normal in caliber. There is no midline shift. The basilar cisterns are patent. Scattered punctate foci of high T2 signal intensity are noted in the periventricular and subcortical white matter of the cerebral hemispheres, the number also slightly greater than expected for patient age. No acute infarct is identified on the DWI sequence. Flow-voids are present in the major intracranial arteries and dural venous sinuses. There are no paranasal sinus air-fluid levels. The mastoid air cells are clear. Gross orbital abnormality is not appreciated. Impression: 1. No acute intracranial abnormality identified. 2. Cortical volume loss slightly greater than expected for patient age. Frontotemporal predominance can be seen in the setting of certain neurodegenerative disorders such as frontotemporal dementia. 3. Tentorial white matter T2 hyperintensity is slightly greater in number than expected for patient age. Differential considerations are broad and include small vessel ischemic change, particularly in the setting of diabetes, hypertension or smoking. Other entities including demyelination and vasculopathy, including migraine, could produce a similar appearance. Procedure Note 10/26/2012 MRI HEAD WITHOUT CONTRAST October 26, 2012 Indication: Intermittent vertigo. Mild left-sided pronator drift. Comparison: None available. Technique: Sagittal T1, axial T1, T2, T2 FLAIR, SWI and DWI. Findings: There is prominence of the supratentorial sulci which is slightly greater than expected for patient age, consistent with cortical volume loss. This has a frontotemporal predominance. The ventricles are normal in caliber. There is no midline shift. The basilar cisterns are patent. Scattered punctate foci of high T2 signal intensity are noted in the periventricular and subcortical white matter of the cerebral hemispheres, the number also slightly greater than expected for patient age. No acute infarct is identified on the DWI sequence. Flow-voids are present in the major intracranial arteries and dural venous sinuses. There are no paranasal sinus air-fluid levels. The mastoid air cells are clear. Gross orbital abnormality is not appreciated. Impression: 1. No acute intracranial abnormality identified. 2. Cortical volume loss slightly greater than expected for patient age. Frontotemporal predominance can be seen in the setting of certain neurodegenerative disorders such as frontotemporal dementia. 3. Tentorial white matter T2 hyperintensity is slightly greater in number than expected for patient age. Differential considerations are broad and include small vessel ischemic change, particularly in the setting of diabetes, hypertension or smoking. Other entities including demyelination and vasculopathy, including migraine, could produce a similar appearance. John Rivera MD IMG MRI ORDERABLES * DIFFERENTIAL (10/26/2012 11:28 EST) % Neutrophils 52.2 45.5 - 79.7 % [facility] % Lymphocytes 34.8 15.0 - 46.8 % [facility] % Monocytes 8.2 1.8 - 12.0 % [facility] % Eosinophils 3.9 0.6 - 6.9 % [facility] % Basophils 0.9 0.2 - 1.4 % [facility] ABS Neutrophils 3.62 2.20 - 8.85 K/cmm [facility] ABS Lymphs 2.41 1.09 - 3.30 K/cmm [facility] ABS Monocytes 0.57 0.1 - 0.8 K/cmm [facility] ABS Eosinophils 0.27 0.03 - 0.61 K/cmm [facility] ABS Basophils 0.06 0.01 - 0.11 K/cmm [facility] Type of Diff: Automated [facility] 10/26/2012 11:2 8 EST 10/26/2012 11:47 EST John Rivera MD HEMATOLOGY & PF4 OR DERABLES Performing Organization Address [facility] Co de Phone Number [facility] [address] [place] [address] * (ABNORMAL) HEMAGRAM (10/26/2012 11:28 EST) WBC 6.93 4.0 - 12.4 K/cmm [facility] RBC 4.01 3.86 - 5.04 M/cmm [facility] Hemoglobin 12.9 11.6 - 15.2 gm/dl [facility] HCT 37.9 34.9 - 44.4 % [facility] MCV 94 81 - 98 fl [facility] MCH 32.2 26.7 - 33.3 pg [facility] MCHC 34.1 32.1 - 35.9 gm/dl [facility] PLT 263 141 - 320 K/cmm [facility] RDW-CV 15.0(H) 11.7 - 14.6 % [facility] 10/26/2012 11:2 8 EST 10/26/2012 11:47 EST John Rivera MD HEMATOLOGY & PF4 OR DERABLES Performing Organization Address [facility] de Phone Number [facility] [address] [place] [address] * PTT (10/26/2012 11:28 EST) PTT 27 26 - 37 secs [facility] Comment:Therapeutic Heparin range: 65-100 seconds Blood specimen (specimen) 10/26/2012 11:28 EST 10/26/2012 11:47 EST John Rivera MD HEMATOLOGY & PF4 OR DERABLES Performing Organization Address [facility] Co de Phone Number [facility] [address] [place] [address] * PROTIME (10/26/2012 11:28 EST) Pro Time 10.0 9.5 - 13.1 secs [facility] I.N.R. 0.9 0.9 - 1.1 Ratio [facility] Comment: Moderate Intensity Coumadin INR = 2.0-3.0 Adjustments in anticoagulant therapy dose should be based upon the INR and NOT the Pro Time. Blood specimen (specimen) 10/26/2012 11:28 EST 10/26/2012 11:47 EST John Rivera MD HEMATOLOGY & PF4 OR DERABLES Performing Organization Address [facility] de Phone Number [facility] [address] [place] [address] * (ABNORMAL) CALCIUM (10/26/2012 11:28 EST) Calcium 8.3(L) 8.5 - 10.5 mg/dl [facility] Comment:Slight hemolysis Calculated Calcium 8.9 8.5 - 10.5 mg/dl [facility] Blood specimen (specimen) 10/26/2012 11:28 EST 10/26/2012 11:47 EST John Rivera MD CHEMISTRY & BLOOD G ORDERABLES Performing Organization Address [facility] de Phone Number [facility] [address] [place] [address] * PHOSPHORUS (10/26/2012 11:28 EST) Phosphorus 3.0 2.5 - 4.5 mg/dl [facility] Comment: Slight hemolysis Results may be affected due to hemolysis. Blood specimen (specimen) 10/26/2012 11:28 EST 10/26/2012 11:47 EST John Rivera MD CHEMISTRY & BLOOD G ORDERABLES Performing Organization Address [facility] de Phone Number [facility] [address] [place] [address] * MAGNESIUM (10/26/2012 11:28 EST) Magnesium 2.3 1.7 - 2.8 mg/dl [facility] Comment: Slight hemolysis Results may be affected due to hemolysis. Blood specimen (specimen) 10/26/2012 11:28 EST 10/26/2012 11:47 EST John Rivera MD CHEMISTRY & BLOOD G ORDERABLES Performing Organization Address [facility] Phone Number [facility] [address] [place] [address] * CREATININE (10/26/2012 11:28 EST) Creatinine 0.61 0.52 - 1.04 mg/dl [facility] Comment:Slight hemolysis GFR, Calculated >60 >60 ml/min/1.7 3m2 [facility] Blood specimen (specimen) 10/26/2012 11:28 EST 10/26/2012 11:47 EST John Rivera MD CHEMISTRY & BLOOD G ORDERABLES Performing Organization Address [facility] Phone Number [facility] [address] [place] [address] * BUN (10/26/2012 11:28 EST) BUN 16 10 - 26 mg/dl [facility] Comment: Slight hemolysis Results may be affected due to hemolysis. Blood specimen (specimen) 10/26/2012 11:28 EST 10/26/2012 11:47 EST John Rivera MD CHEMISTRY & BLOOD G ORDERABLES Performing Organization Address [facility] Phone Number [facility] [address] [place] [address] * ELECTROLYTES (10/26/2012 11:28 EST) Sodium 142 136 - 145 mEq/L [facility] Comment:Slight hemolysis Potassium 4.7 3.5 - 5.0 mEq/L [facility] Comment: Slight hemolysis Hemolysis may elevate potassium result. Chloride 108 96 - 110 mEq/L [facility] Comment:Slight hemolysis CO2 24 24 - 32 mEq/L [facility] Comment:Slight hemolysis Blood specimen (specimen) 10/26/2012 11:28 EST 10/26/2012 11:47 EST John Rivera MD CHEMISTRY & BLOOD G ORDERABLES Performing Organization Address [facility]/ZIP Co de Phone Number [facility] [address] [place] [address] * (ABNORMAL) SCREENING GLUCOSE (10/26/2012 11:28 EST) Glucose, Screening 102(H) 70 - 100 mg/dl [facility] Comment: Slight hemolysis Results may be affected due to hemolysis. Blood specimen (specimen) 10/26/2012 11:28 EST 10/26/2012 11:47 EST John Rivera MD CHEMISTRY & BLOOD G ORDERABLES Performing Organization Address [facility] Co de Phone Number [facility] [address] [place] [address] documented in this encounter Visit Diagnoses Diagnosis Dizziness- Primary Dizziness and giddiness migraine headaches Personal history of other disorders of nervous system and sense organs Screening for osteoporosis- Primary Special screening for [...] MAR Action Action Date Dose Rate Site sodium chloride (NS) 0.9 % 500 mL BOLUS 500 mL, intravenous, Once (Without Time Specified), 1 dose, Starting on Wed10/26/12 at 1400, Until Wed10/26/12 at 1339, STAT Given 10/26/2012 13:39 EST 500 mL documented in this encounter Active and Recently Administered Medications Times are shown in EST. Scheduled Medication Order 10/24/2012 10/25/2012 10/26/2012 sodium chloride (NS) 0.9 % 500 mL BOLUS (COMPLETED) 500 mL, intravenous, Once (Without Time Specified), 1 dose, Starting on Wed10/26/12 at 1400, Until Wed10/26/12 at 1339, STAT 1339 (Given - Provid er: Yesica Chakraborty RN) documented in this encounter Orders Medications Ordered That Victor Manuel ht Not Have Been Administered Count Last Ordered Date First Ordered Date sodium chloride (NS) 0.9 % 500 mL BOLUS 1 0 10/26/2012 documented in this encounter Care Teams Sustainability Officer Relationship Specialty Start Date End Date Jean Munoz MD [address] [place] [phone] PCP - General 12/31/08 Manny Rizzo MD [address] [place] [phone] 04/20/10 documented as of this encounter
--- OUTSIDE RECORDS SUMMARY | 2024-06-10 07:29 | XMS_ITS | Encounter Summary ---
Author Organization [facility] Address [address] [place] [address] Care Team Providers Care [employer] Fscm Developer Name Role Phone Jean Munoz MD Primary Care Provider Manny Rizzo MD Unavailable Encounter Details Date Type Department Care Team (Latest Contact Info) Description 12/01/2012 11:00 EDT - 12/01/2012 23:59 EDT Hospital Encounter [facility] [address] [place] [address] Tiana Bacon [address] [place] [address] Discharge Disposition: Home or Self Care Social [...] times daily. 3 Inhaler 3 11/23/2012 03/02/2013 hydrocodone-acetaminoph en (LORTAB) 5-500 mg tabletIndications:Left knee pain Take 1 Tab by mouth every 6 hours as needed for Pain for 28 days. 112 Tab 0 11/24/2012 02/08/2013 hydrocodone-acetaminoph en (LORTAB) 5-500 mg tabletIndications:Left knee pain Take 1 Tab by mouth every 6 hours as needed for Pain for 28 days. 112 Tab 0 12/22/2012 02/08/2013 hydrocodone-acetaminoph en (LORTAB) 5-500 mg [...] the morning for narcolepsy. 60 Tab 0 11/23/2012 12/20/2012 methylphenidate (RITALIN;METHYLIN) 10 mg tablet Take one tab in the afternoon for narcolepsy 30 Tab 0 11/23/2012 12/20/2012 mometasone (NASONEX) 50 mcg/actuation nasal sprayIndications:Season al allergic rhinitis 2 Sprays by nasal route daily. 3 Inhaler 0 11/24/2012 03/02/2013 montelukast (SINGULAIR) 10 mg tabletIndications:Asthm a Take 1 Tab by mouth daily. 90 Each 0 11/24/2012 03/02/2013 nortriptyline (PAMELOR) 75 mg capsuleIndications:Depr ession Take 1 Cap by mouth daily. 90 Each 0 11/24/2012 03/02/2013 omeprazole (PRILOSEC) 20 mg capsuleIndications:Inso mnia Take 2 Caps by mouth daily. 180 Cap 0 11/24/2012 01/11/2013 omeprazole (PRILOSEC) 40 mg capsule Take 1 Cap by mouth daily. 30 Cap 1 12/01/2012 03/02/2013 ondansetron (ZOFRAN) 4 mg tablet Take 1 Tab by mouth daily as needed for Nausea. 30 Tab 1 11/24/2012 03/02/2013 pregabalin (LYRICA) 150 mg capsuleIndications:Language Instructor majo back pain Take 1 Cap by mouth 3 times daily. 270 Each 0 11/24/2012 03/02/2013 promethazine (PHENERGAN) 25 mg tablet Take 1 Tab by mouth every 6 hours as needed for Nausea. 30 Tab 1 05/10/2012 01/11/2013 ropinirole (REQUIP) 2 mg tabletIndications:Restl ess legs syndrome Take 1 Tab by mouth at bedtime. 90 Each 0 11/24/2012 03/02/2013 sertraline (ZOLOFT) 100 mg tabletIndications:Depre ssion Take 2 Tabs by mouth daily. 180 Tab 0 11/24/2012 03/02/2013 sumatriptan (IMITREX) 50 mg tablet Take 1 Tab by mouth once as needed for Migraine for 1 dose. 9 Each 2 09/19/2012 02/08/2013 tiotropium (SPIRIVA WITH HANDIHALER) 18 mcg inhalation capsuleIndications:Asth ma Inhale 1 Cap as directed daily. 3 Cap 0 11/24/2012 03/02/2013 zolpidem (AMBIEN) 10 mg tabletIndications:Insom yesi Take 1 Tab by mouth at bedtime as needed for Sleep. 30 Each 2 11/24/2012 02/08/2013 documented as of this encounter Discharge Disposition Disposition Code Departure Means Destination Home or Self [facility] documented in this encounter Plan of Treatment Upcoming Encounters Date Type Department Care Team (Late st Contact Info) Description 06/29/2024 14:15 EDT Office Visit [facility] [address] [place], [place] [id number] Jean Munoz MD [address] [place] [address] documented as of this encounter Visit Diagnoses Not on filedocumented in this encounter Care Teams [employer] Fscm Developer Relationship Specialty Start Date End Date Jean Munoz MD [address] [place] [address] PCP - General 12/31/08 Manny Rizzo MD [address] [place] [phone] 04/20/10 documented as of this encounter
--- OUTSIDE RECORDS SUMMARY | 2024-06-10 07:29 | XMS_ITS | Encounter Summary ---
Author Organization [facility] Address [address] [place] [address] Care Team Providers Care Loss Control Consultant Name Role Phone Jean Munoz MD Primary Care Provider Manny Rizzo MD Unavailable Reason for Visit * Reason Comments Medication Management Encounter Details Date Type Department Care Team (Late st Contact Info) Description 09/29/2012 11:30 EST Office Visit [facility] [address] [place] [address] Jean Munoz MD [address] [place] [phone] Asthma (Primary Dx); Tobacco dependence syndrome; Gastroesophageal reflux disease; Chronic knee pain; Chronic back pain; Left knee pain Social History Tobacco Use Types Packs/Day [...] Reading Time Taken Comments Blood Pressure 100/68 09/29/2012 1137 EST Pulse 72 09/29/2012 1137 EST Temperature 36.8 ??C (98.3 ??F) 09/29/2012 1137 EST Respiratory Rate - - Oxygen Saturation - - Inhaled Oxygen Concentration - - Weight 93.2 kg (205 lb 8 oz) 09/29/2012 1137 EST Height 162.3 cm (5' 3.9) 09/29/2012 1137 EST Body Mass Index 35.38 09/29/2012 1137 EST documented in this encounter Functional Status Cognitive Status Response Date of Assessm ent Because of a physical, menta l, or emotional condition, do you have serious difficulty concentrating, remembering, or making decisions? (5 years old or older) Yes 04/05/2012 documented as of this encounter Ordered Prescriptions Prescription Sig Dispensed Refills Start Date End Da te hydrocodone-acetaminophen (LORTAB) 5-500 mg tabletIndications:Left knee pain Take 1 Tab by mouth every 6 hours as needed for Pain for 28 days. 112 Tab 0 10/27/2012 11/24/2012 hydrocodone-acetaminophen (LORTAB) 5-500 mg tabletIndications:Left knee pain Take 1 Tab by mouth every 6 hours as needed for Pain for 28 days. 112 Tab 0 09/29/2012 09/29/2012 pregabalin (LYRICA) 150 mg capsuleIndications:Chronic back pain Take 1 Cap by mouth 3 times daily. 90 Each 1 09/29/2012 11/24/2012 documented in this encounter Progress Notes * Jean Munoz MD - 09/30/2012 1618 EST Subjective: Patient ID: Liset Viera is an 51 y.o. female. Chief Complaint Patient presents with ??? Medication Management HPI Asthma Saw Dr Virk yesterday, start prednisone, change Advair HFA Symptoms variable Tobacco dependence syndrome Quit 2 years ago still smokes, +secondhand exposure Gastroesophageal reflux disease Denies heartburn, taking omeprazole, is helping Chronic back pain Will see Dr Coello 10/14/12 for F/U, ?injection Knee pain still a problem F/U Dr Glynn pending Patient Active Problem List Diagnoses ??? Severe [...] other internal orthopedic device, implant, and graft Past Medical History Diagnosis Date ??? UTI [...] to Visit Medication Sig Dispense Refill ??? pregabalin (LYRICA) 150 mg capsule Take 1 Cap by mouth 3 times daily. 90 Each 1 ??? predniSONE (DELTASONE) 20 mg tablet Take 2 Tabs by mouth daily for 5 days. 10 Tab 0 ??? fluticasone-salmeterol (ADVAIR HFA) 230-21 mcg/actuation inhaler Inhale 2 Puffs as directed 2 times daily. 1 Inhaler 11 ??? methylphenidate (RITALIN SR; METADATE ER; METHYLIN ER) 20 mg SR tablet Brand only. Take 2 tabs in the morning for narcolepsy. 60 Tab 0 ??? methylphenidate (RITALIN;METHYLIN) 10 mg tablet Take one tab in the afternoon for narcolepsy 30Tab 0 ??? zolpidem (AMBIEN) 10 mg tablet Take 1 Tab by mouth at bedtime as needed for Sleep. 30 Each 2 ??? SINGULAIR 10 mg tablet TAKE ONE TABLET BY MOUTH AT BEDTIME 30 Each 2 ??? cyclosporine (RESTASIS) 0.05 % ophthalmic emulsion Place 1 Drop into both eyes 4 times daily. 2Tray 11 ??? tiotropium (SPIRIVA WITH HANDIHALER) 18 mcg inhalation capsule Inhale 1 Cap as directed daily. 1 Cap 11 ??? promethazine (PHENERGAN) 25 mg tablet Take 1 Tab by mouth every 6 hours as needed for Nausea. 30 Tab 1 ??? ipratropium-albuterol (DUO-NEB) 0.5 mg-3 mg(2.5 mg base)/3 mL nebulizer solution Take 3 mL by nebulization 4 times daily. 2 Box 0 ??? baclofen (LIORESAL) 10 mg tablet Take 0.5-1 Tabs by mouth 3 times daily as needed. 90 Tab 4 ??? fexofenadine (JUDITH) 180 mg tablet Take 1 Tab by mouth daily. 90 Each 4 ??? mometasone (NASONEX) 50 mcg/actuation nasal spray 2 Sprays by Nasal route daily. 3 Inhaler 4 ??? nortriptyline (PAMELOR) 75 mg capsule Take 1 Cap by mouth daily. 30 Each 4 ??? omeprazole (PRILOSEC) 20 mg capsule Take 1 Cap by mouth daily. 90 Cap 4 ??? sertraline (ZOLOFT) 100 mg tablet Take 2 Tabs by mouth daily. 180 Tab 5 ??? levalbuterol (XOPENEX HFA) 45 mcg/actuation inhaler Inhale 1-2 Puffs as directed every 4 hours as needed for Wheezing. 3 Inhaler 3 ??? ropinirole (REQUIP) 2 mg tablet TAKE ONE TABLET BY MOUTH AT BEDTIME 90 Each 3 ??? doxycycline (VIBRA-TABS) 100 mg tablet Take 1 Tab by mouth daily. 30 Tab 11 ??? hydroxypropyl methylcellulose (ISOPTO TEARS) 0.5 [...] HPI Objective: BP 100/68 Pulse 72 Temp(Src) 36.8 ??C (98.3 ??F) (Tympanic) Ht 162.3 cm (63.9) Wt 93.214 kg (205 lb 8 oz) BMI 35.38 kg/m2 Physical Exam deferred Assessment: Plan: Liset was seen today for medication management. Diagnoses and associated orders for this visit: Asthma Partially controlled Tobacco dependence syndrome In remission Still with second hand smoke exposure Likely exacerbating asthma Gastroesophageal reflux disease Controlled on omeprazole Chronic knee pain Chronic back pain - pregabalin (LYRICA) 150 mg capsule; Take 1 Cap by mouth 3 times daily. Left knee pain - Discontinue: hydrocodone-acetaminophen (LORTAB) 5-500 mg tablet; Take 1 Tab by mouth every 6 hours as needed for Pain for 28 days. - hydrocodone-acetaminophen (LORTAB) 5-500 mg tablet; Take 1 Tab by mouth every 6 hours as needed for Pain for 28 days. Refilled meds x 2 months Recheck after F/U with Dr Glynn Patient Education Topic: as above Method: Verbal Taught to: Patient Barriers: None Outcomes: Verbalized understanding Return in 8 weeks (on 11/24/2012) for SERA. documented in this encounter Miscellaneous Notes * Assessment & Plan Note - Jean Munoz MD - 09/29/2012 1237 EST Associated Problem(s): Chronic back pain Will see Dr Coello 10/14/12 for F/U, ?injection * Assessment & Plan Note - Jean Munoz MD - 09/29/2012 1232 EST Associated Problem(s): Gastroesophageal reflux disease Denies heartburn, taking omeprazole, is helping * Assessment & Plan Note - Jean Munoz MD - 09/29/2012 1231 EST Associated Problem(s): Tobacco dependence in remission Quit 2 years ago still smokes, +secondhand exposure * Assessment & Plan Note - Jean Munoz MD - 09/29/2012 1231 EST Associated Problem(s): Asthma (Resolved 03/03/2017) Saw Dr Virk yesterday, start prednisone, change Advair HFA Symptoms variable documented in this encounter Plan of Treatment Upcoming Encounters Date Type Department Care Team (Late st Contact Info) Description 06/29/2024 14:15 EDT Office Visit [facility] [address] [place] [address] Jean Munoz MD [address] [place] [phone] documented as of this encounter Visit Diagnoses Diagnosis Asthma- Primary Unspecified asthma Tobacco dependence syndrome Tobacco use disorder Gastroesophageal reflux disease Esophageal reflux Chronic knee pain Pain in joint, lower leg Chronic back pain Backache, unspecified Left knee [...] End Da te pregabalin (LYRICA) 150 mg capsuleIndications:Chron ic back pain Take 1 Cap by mouth 3 times daily. Reorder 08/29/2012 09/29/2012 hydrocodone-acetaminophe n (LORTAB) 5-500 mg tabletIndications:Left knee pain Take 1 Tab by mouth every 6 hours as needed for Pain. Reorder 08/29/2012 09/29/2012 hydrocodone-acetaminophe n (LORTAB) 5-500 mg tabletIndications:Left knee pain Take 1 Tab by mouth every 6 hours as needed for Pain for 28 days. Reorder 09/29/2012 09/29/2012 documented as of this encounter Care Teams Loss Control Consultant Relationship Specialty Start Date End Date Jean Munoz MD [address] [place] [address] PCP - General 12/31/08 Manny Rizzo MD [address] [place] [phone] 04/20/10 documented as of this encounter
--- OUTSIDE RECORDS SUMMARY | 2024-06-10 07:29 | XMS_ITS | Encounter Summary ---
Author Organization [facility] Address [address] [place] [address] Care Team Providers Care Chef Instructor Name Role Phone Jean Munoz MD Primary Care Provider Manny Rizzo MD Unavailable Reason for Visit * Reason Comments Follow-up Encounter Details Date Type Department Care Team (Late st Contact Info) Description 10/26/2012 9:00 EST Office Visit [facility] - [address] [id number] Tiana Bacon [address] [place] [phone] Narcolepsy (Primary Dx); RLS (restless legs syndrome); Dizziness Discharge Disposition: Auto Discharge Social History Tobacco [...] Sign Reading Time Taken Comments Blood Pressure 128/70 10/26/2012 0905 EST Pulse 73 10/26/2012904 EST Temperature - - Respiratory Rate 16 10/26/2012904 EST Oxygen Saturation 98% 10/26/2012904 EST Inhaled Oxygen Concentration - - Weight 97.1 kg (214 lb) 10/26/2012904 EST Height 162.6 cm (5' 4.02) 10/26/2012904 EST Body Mass Index 36.71 10/26/2012904 EST documented in this encounter Functional Status [...] for narcolepsy 30 Tab 0 10/26/2012 11/17/2012 methylphenidate (RITALIN SR; METADATE ER; METHYLIN ER) 20 mg SR tablet Brand only. Take 2 tabs in the morning for narcolepsy. 60 Tab 0 10/26/2012 11/17/2012 documented in this encounter Discharge Disposition Disposition Code Departure Means Destination Auto Discharge documented in this encounter Progress Notes * Tiana Bacon MD - 10/26/20121920 EST HPI: Ms. 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 Today, she presents a new concern. She states that she has been experiencing dizzy spells forthe past but has 2 months, and double vision. The double vision actually has been occurring for hermore than a year, and has been evaluated by ophthalmology, who attribute it to phoria or dry eye (in one note). With regards to her double vision, she states it tends to come and go. When pressed to give more details, as an example of what she might experience a, she states that she could express when she sitting at the computer, then all of a sudden she will be seeing double. She states that it tends to happen more so when she is tired. If symptoms that she is drunk. These episodes last for over 10 minutes and they can happen when she is driving. She denies any progressive weakness is worse at the endof the day. With regards to dizziness, she states that she feels off-balance and this can last about 10-60 minutes. This dizziness also comes and goes. When asked what she means by dizzy she states that she feels like I am going to pass out.. This dizziness will happen independent of her double vision. She denies any slurred speech. When asked if she has any weakness, she states that she has right-sided weakness, more specifically in her right arm. She has no history of stroke or heart attack. When askedwhat she does when she experiences this dizziness, she states that she will sit down and weight it out. She has only experienced nausea once with the dizziness and that was last week. She reports that she has a history of migraine and that she gets it 2-3 times per week. When asked what her migraine is like, she states that it starts in both her eyes, and then spreads to her wholehead, with a pounding sensation. She treats this with sumatriptan. When asked if there is any correlation with the dizziness and her migraine, on thinking about it, she does feel that the dizziness tends to happen after the migraine. When asked how many times she experiences last week, she states that she had 3 episodes, each time with a headache preceding it. Sumatriptan will typically help her headache right away, but it will not take care of the dizziness. With regards to her narcolepsy, she continues to take 40 mg a Ritalin-SR in the morning, an additional 10 mg in the afternoon. She feels that this is really effective for her keeping her awake and alert during the daytime. She states that she tries to she only has to and only if she is awake enoughto do so. She continues to take Ambien 1-2 times per week to help her with sleep. Additionally, sheis seeing Dr. Celia Castro PhD for CBT regarding her insomnia. Additionally, she continues to take Requip for RLS She continues to use supplemental oxygen. Outpatient Prescriptions Marked as Taking for the 10/26/12 encounter (Office Visit) with Tiana Bacon MD Medication Sig Dispense Refill ??? methylphenidate (RITALIN SR; METADATE ER; METHYLIN ER) 20 mg SR tablet Brand only. Take 2 tabs in the morning for narcolepsy. 60 Tab 0 ??? methylphenidate (RITALIN;METHYLIN) 10 mg tablet Take one tab in the afternoon for narcolepsy 30Tab 0 ??? doxycycline (VIBRA-TABS) 100 mg tablet Take 1 Tab by mouth daily. 30 Tab 11 ??? SINGULAIR 10 mg tablet TAKE ONE TABLET BY MOUTH AT BEDTIME 30 Each 1 ??? DISCONTD: methylphenidate (RITALIN;METHYLIN) 10 mg tablet Take one tab in the afternoon for narcolepsy 30 Tab 0 ??? pregabalin (LYRICA) 150 mg capsule Take 1 Cap by mouth 3 times daily. 90 Each 1 ??? hydrocodone-acetaminophen (LORTAB) 5-500 mg tablet Take 1 Tab by mouth every 6 hours as needed for Pain for 28 days. 112 Tab 0 ??? fluticasone-salmeterol (ADVAIR HFA) 230-21 mcg/actuation inhaler Inhale 2 Puffs as directed 2 times daily. 1 Inhaler 11 ??? DISCONTD: methylphenidate (RITALIN SR; METADATE ER; METHYLIN ER) 20 mg SR tablet Brand only. Take 2 tabs in the morning for narcolepsy. 60 Tab 0 ??? zolpidem (AMBIEN) 10 mg tablet [...] MOUTH AT BEDTIME 90 Each 3 ??? hydroxypropyl methylcellulose (ISOPTO TEARS) 0.5 % ophthalmic solution Place 1 Drop into both eyes 5 times daily. ??? docusate sodium (COLACE) 100 mg capsule Take 1 Cap by mouth 2 times daily as needed for Constipation. Allergies Allergen Reactions ??? Toradol (Ketorolac Tromethamine) Hives ??? Motrin (Ibuprofen) Itching ROS: see HPI for pertinent positives and negatives EXAM: Filed Vitals: 10/26/12 0905 BP: 128/70 Pulse: 73 Resp: 16 Height: 162.6 cm (64.02) Weight: 97.07 kg (214 lb) SpO2: 98% Heart:RRR, normal S1, S2 Lungs: CTAB II, III, IV, : PERRLA, EOMI, no nystagumus, fundus normal, discs sharp, V: facial sensation intact VII: no facial weakness VIII: hearing intact to spoken word IX: palate elevates symmetrically XI: shoulder shrug symmetric XII: tongue midline to protrusion Motor: 5/5 BUE and BLE proximally to distally, normal tone and bulk Reflexes:3/4 BUE, bilateral patellar, bilat AJ, plantars downgoing bilaterally Sensation: intact to vibration, cold touch, and light touch, Romberg negative Coordination: FTN and HTS intact Gait: narrow, stiff appearing gait (patiet attributes this to pins taken out of R ankle recently, tandem in-line A/P: Ms. Viera is a 51-year-old woman with a history of narcolepsy with cataplexy which is currently well controlled with her current regimen of Ritalin. Additionally, ropirionole, has been effective for her RLS. She presents for a new concern of dizziness that has been intermittent, but happening with more frequency in the past couple of months. Given her history of prior smoking, (and she continues to be exposed to secondhand smoke), and diabetes, my concern would be for vascular/TIA-type process. The plan is to send her to the ED for evaluation with neurology, and to obtain an MRI with vessel study to ensure that there are no posterior circulation issues. Her neurological exam is only notable for brisk reflexes which could be attributed to her history of cervical spine fusion surgery. Alternatively, her dizziness may be due to migraine, if no specific vascular etiology is found and she may benefit from better migraine control in that case. With regards to her double vision, this is not a new issue for her and has been evaluated by ophthalmology--where it is attributed to possible dryness or phoria. I do not get a clear history of her double vision apart from that it comes and goes. Her history does not sound suggestive of myasthenia.I will defer to opthalmology to follow unless new symptoms arise. Follow up in 6 mos, unless patient requires follow up sooner based on results of evaluation. documented in this encounter Plan of Treatment Upcoming Encounters Date Type Department Care Team (Late st Contact Info) Description 06/29/2024 14:15 EDT Office Visit [facility] [address] [place], [place] [phone] Jean Munoz MD [address] [place] [phone] documented as of this encounter Visit Diagnoses Diagnosis Narcolepsy- Primary Narcolepsy without cataplexy RLS (restless legs syndrome) Restless legs syndrome (RLS) Dizziness Dizziness and giddiness Screening for osteoporosis- Primary [...] tabs in the morning for narcolepsy. Reorder 10/01/2012 10/26/2012 methylphenidate (RITALIN;METHYLIN) 10 mg tablet Take one tab in the afternoon for narcolepsy Reorder 10/06/2012 10/26/2012 documented as of this encounter Care Teams Chef Instructor Relationship Specialty Start Date End Date Jean Munoz MD [address] [place] [phone] PCP - General 12/31/08 Manny Rizzo MD [address] [place] [phone] 04/20/10 documented as of this encounter
--- OUTSIDE RECORDS SUMMARY | 2024-06-10 07:29 | XMS_ITS | Encounter Summary ---
Author Organization [facility] Address [address] [place] [address] Care Team Providers Care Transition Teacher Name Role Phone Jean Munoz MD Primary Care Provider Manny Rizzo MD Unavailable Encounter Details Date Type Department Care Team (Latest Contact Info) Description 01/04/2013 18:13 EDT - 01/04/2013 23:59 EDT Hospital Encounter [facility] [address] [place] [address] Tiana Bacon [address] [place] [address] Discharge Disposition: Home or Self [...] for narcolepsy. 60 Tab 0 12/21/2012 01/16/2013 methylphenidate (RITALIN;METHYLIN) 10 mg tablet Take one tab in the afternoon for narcolepsy 30 Tab 0 12/21/2012 01/16/2013 mometasone (NASONEX) 50 mcg/actuation nasal sprayIndications:Season al [...] 1 11/24/2012 03/02/2013 pregabalin (LYRICA) 150 mg capsuleIndications:Yield Loss Inspector majo back pain Take 1 Cap by [...] Code Departure Means Destination Home or Self Longterm documented in this encounter Plan of Treatment Upcoming Encounters Date Type Department Care Team (Late st Contact Info) Description 06/29/2024 14:15 EDT Office Visit [facility] [address] [place], [place] [phone] Jean Munoz MD [address] [place] [phone] documented as of this encounter Visit Diagnoses Not on filedocumented in this encounter Care Teams Transition Teacher Relationship Specialty Start Date End Date Jean Munoz MD [address] [place] [phone] PCP - General 12/31/08 Manny Rizzo MD [address] [place] [phone] 04/20/10 documented as of this encounter
--- OUTSIDE RECORDS SUMMARY | 2024-06-10 07:29 | XMS_ITS | Encounter Summary ---
Author Organization [facility] Address [address] [place] [address] Care Team Providers Care [employer] Maintenance Worker Name Role Phone Jean Munoz MD Primary Care Provider Manny Rizzo MD Unavailable Encounter Details Date Type Department Care Team (Late st Contact Info) Description 11/22/2012 Results Only Imaging [facility] Adult Neurology - [facility] [address] [place], [place] [phone] Tiana Bacon [address] [place] [phone] Social History Tobacco Use Types Packs/Day Years [...] Office Visit [facility] [address] [place] [address] Jean Munoz MD [address] [place] [address] documented as of this encounter Procedures Procedure Name Priority Date/Time Associated Diagnosis Comments MR ANGIO HEAD WO AND ANGIO NECK W CONTRAST 12/01/2012 11:50 EDT documented in this encounter Results * MR ANGIO HEAD WO AND ANGIO NECK W CONTRAST (12/01/2012 11:50 EDT) Anatomical Region Laterality Modality Other 12/01/2012 11:5 0 EDT 12/01/2012 12:49 EDT Narrative 12/01/2012 12:49 EDT MR ANGIO HEAD W/O AND ANGIO NECK WITH CONTRAST ??Dec 01, 2012 11:50:00 AM Signs and Symptoms/Comments: ??780.4-Dizziness and arwnfoqon-IFI-4-CM; dizziness, unsteadiness, headache No comparison MR angiography. Brain MRI October 26 demonstrated no acute abnormality or mass. MR angiography of the neck: Review of source and reconstructed scans. Left carotid: No common carotid stenosis. No stenosis at the bifurcation. No internal carotid stenosis demonstrated. Right carotid: No innominate artery stenosis demonstrated. Some loss of signal but no focal stenosis of the proximal common carotid artery. No stenosis at the bifurcation or internal carotid demonstrated. Left vertebral: No stenosis of the proximal left subclavian artery or left vertebral origin. No left vertebral stenosis in the neck. Right vertebral: No stenosis of the proximal right subclavian after the innominate bifurcation. No definite right vertebral origin stenosis with the right vertebral artery smaller than left. No significant stenosis demonstrated in the neck. The reconstructed views demonstrate the right vertebral origin poorly and there may be some mild stenosis but severe stenosis is not seen and this is the nondominant vertebral. There is some minimal irregularity of the carotid bulbs without significant stenosis identified. No significant external carotid stenosis demonstrated. Impression: Suboptimal visualization of the right vertebral origin but no significant vertebral or carotid stenosis is demonstrated. MR angiography of the [place] with review of source and reconstructed images. Left carotid: No stenosis. No cavernous aneurysm, aneurysm in the region of the anterior communicating artery or middle cerebral artery trifurcation. Small posterior communicating artery noted. Right carotid: No stenosis. No cavernous aneurysm. No aneurysm in the region of the middle cerebral artery trifurcation. type posterior communicating artery. Left vertebral: No stenosis. No aneurysm at the origin of the posterior inferior cerebellar artery. This is not well evaluated on this study but no aneurysm is seen on the MR angiography of the neck. Right vertebral: This is again significantly smaller than the left. It does however join the left to form the basilar artery. There is no basilar stenosis or basilar tip aneurysm demonstrated. Reconstructions reveal no intracranial stenoses. Impression: MR angiography of the [place] within normal limits. Procedure Note 12/01/2012 MR ANGIO HEAD W/O AND ANGIO NECK WITH CONTRAST Dec 01, 2012 11:50:00 AM Signs and Symptoms/Comments: 780.4-Dizziness and ylwaabtem-MMI-3-CM; dizziness, unsteadiness, headache No comparison MR angiography. Brain MRI October 26 demonstrated no acute abnormality or mass. MR angiography of the neck: Review of source and reconstructed scans. Left carotid: No common carotid stenosis. No stenosis at the bifurcation. No internal carotid stenosis demonstrated. Right carotid: No innominate artery stenosis demonstrated. Some loss of signal but no focal stenosis of the proximal common carotid artery. No stenosis at the bifurcation or internal carotid demonstrated. Left vertebral: No stenosis of the proximal left subclavian artery or left vertebral origin. No left vertebral stenosis in the neck. Right vertebral: No stenosis of the proximal right subclavian after the innominate bifurcation. No definite right vertebral origin stenosis with the right vertebral artery smaller than left. No significant stenosis demonstrated in the neck. The reconstructed views demonstrate the right vertebral origin poorly and there may be some mild stenosis but severe stenosis is not seen and this is the nondominant vertebral. There is some minimal irregularity of the carotid bulbs without significant stenosis identified. No significant external carotid stenosis demonstrated. Impression: Suboptimal visualization of the right vertebral origin but no significant vertebral or carotid stenosis is demonstrated. MR angiography of the [place] with review of source and reconstructed images. Left carotid: No stenosis. No cavernous aneurysm, aneurysm in the region of the anterior communicating artery or middle cerebral artery trifurcation. Small posterior communicating artery noted. Right carotid: No stenosis. No cavernous aneurysm. No aneurysm in the region of the middle cerebral artery trifurcation. type posterior communicating artery. Left vertebral: No stenosis. No aneurysm at the origin of the posterior inferior cerebellar artery. This is not well evaluated on this study but no aneurysm is seen on the MR angiography of the neck. Right vertebral: This is again significantly smaller than the left. It does however join the left to form the basilar artery. There is no basilar stenosis or basilar tip aneurysm demonstrated. Reconstructions reveal no intracranial stenoses. Impression: MR angiography of the [place] within normal limits. Tiana Bacon [facility] MRI ORDERABLES documented in this encounter Visit Diagnoses Not on filedocumented in this encounter Care Teams [employer] Maintenance Worker Relationship Specialty Start Date End Date Jean Munoz MD [address] [place] [phone] PCP - General 12/31/08 Manny Rizzo MD [address] [place] [phone] 04/20/10 documented as of this encounter
--- OUTSIDE RECORDS SUMMARY | 2024-06-10 07:29 | XMS_ITS | Encounter Summary ---
Author Organization [facility] Address [address] [place] [address] Care Team Providers Care Flatware Maker Name Role Phone Jean Munoz MD Primary Care Provider Manny Rizzo MD Unavailable Reason for Referral * Consult (STAT) - Closed Specialty Diagnoses / Procedures Referred By [facility] t Referred To Contact Urology Diagnoses Urinary retention Jean Munoz MD [address] [place] [phone] Referral ID Status Reason Start Date Expiration Date V isits Requested Visits Authorized [id number] Closed Specialty Services Required 01/11/2013 1 1 Question Answer Reason for Request: urinary retention, discussed with Dr Powers Reason for Visit * Reason Comments Urinary Incontinence 2 weeks, urinary re tention, incontinence at night, no blood, no dysuria, ?fever, has not checked, no chills or sweats, bowels OK Encounter Details Date Type Department Care Team (Late st Contact Info) Description 01/11/2013 13:00 EDT Office Visit [facility] [address] [place] [address] Jean Munoz MD [address] [place] [phone] Urinary retention (Primary Dx) Social History Tobacco Use Types [...] Sign Reading Time Taken Comments Blood Pressure 124/74 01/11/2013 1307 EDT Pulse 88 01/11/2013 1307 EDT Temperature 36.8 ??C (98.3 ??F) 01/11/2013 1307 EDT Respiratory Rate 16 01/11/2013 1307 EDT Oxygen Saturation - - Inhaled Oxygen Concentration - - Weight 90.3 kg (199 lb) 01/11/2013 1307 EDT Height 157.5 cm (5' 2) 01/11/2013 1307 EDT Body Mass Index 36.4 01/11/2013 1307 EDT documented in this encounter Functional Status Cognitive Status Response Date of Assessm ent Because of a physical, menta l, or emotional condition, do you have serious difficulty concentrating, remembering, or making decisions? (5 years old or older) Yes 04/05/2012 documented as of this encounter Progress Notes * Jean Munoz MD - 01/11/2013 1337 EDT Subjective: Patient ID: Liset Viera is an 52 y.o. female. Chief Complaint Patient presents with ??? Urinary Incontinence 2 weeks, urinary retention, incontinence at night, no blood, no dysuria, ?fever, has not checked, no chills or sweats, bowels OK HPI As above Acute onset per patient Prior history of retention 2007, resolved on own per patient S/p hysterectomy Questionable adnexal mass in past not confirmed on F/U imaging Back pain stable MRI 2005 no significant findings LS Xrays 2010 minimal scoliosis Patient Active Problem List Diagnoses ??? Severe [...] disc ??? Depression ??? Low back pain Past Medical History Diagnosis Date ??? [...] Visit Medication Sig Dispense Refill ??? methylphenidate (RITALIN SR; METADATE ER; METHYLIN ER) 20 mg SR tablet Brand only. Take 2 tabs in the morning for narcolepsy. 60 Tab 0 ??? methylphenidate (RITALIN;METHYLIN) 10 mg tablet Take one tab in the afternoon for narcolepsy 30Tab 0 ??? omeprazole (PRILOSEC) 40 mg capsule Take 1 Cap by mouth daily. 30 Cap 1 ??? hydrocodone-acetaminophen (LORTAB) 5-500 mg tablet Take 1 Tab by mouth every 6 hours as needed for Pain for 28 days. 112 Tab 0 ??? pregabalin (LYRICA) 150 mg [...] as directed daily. 3 Cap 0 ??? zolpidem (AMBIEN) 10 mg tablet Take 1 Tab by mouth at bedtime as needed for Sleep. 30 Each 2 ??? hydrocodone-acetaminophen (LORTAB) 5-500 mg tablet Take 1 Tab by mouth every 6 hours as needed for Pain for 28 days. 112 Tab 0 ??? hydrocodone-acetaminophen (LORTAB) 5-500 mg tablet [...] rarely ROS - See HPI Objective: BP 124/74 Pulse 88 Temp(Src) 36.8 ??C (98.3 ??F) (Tympanic) Resp 16 Ht 157.5 cm (62) Wt 90.266 kg (199 lb) BMI 36.40 kg/m2 LMP 01/11/1987 Physical Exam External Genitalia normal Vagina normal Cervix not visualized Uterus not palpated Adnexa no tenderness, no masses Assessment: Plan: Liset was seen today for urinary incontinence. Diagnoses and associated orders for this visit: Urinary retention - Ambulatory Consult Urology Other Orders - Cancel: POCT Urine Dipstick I discussed with Dr Powers by phone who will see patient today Patient Education Topic: as above Method: Verbal Taught to: Patient Barriers: None Outcomes: Verbalized understanding documented in this encounter Plan of Treatment Upcoming Encounters Date Type Department Care Team (Late st Contact Info) Description 06/29/2024 14:15 EDT Office Visit [facility] [address] [place] [address] Jean Munoz MD [address] [place] [phone] Scheduled Referrals Name Type Priority Associated Diagnoses Orde r Schedule AMB CONSULT UROLOGY Outpatient Referral Today Urinary retention Ordered: 01/11/2013 documented as of this encounter Visit Diagnoses Diagnosis Urinary retention- Primary Retention of urine, unspecified Screening for osteoporosis- Primary Special screening [...] Start Date End Da te omeprazole (PRILOSEC) 20 mg capsuleIndications:Ins omnia Take 2 Caps by mouth daily. Patient Stopped Taking 11/24/2012 01/11/2013 promethazine (PHENERGAN) 25 mg tablet Take 1 Tab by mouth every 6 hours as needed for Nausea. Patient Stopped Taking 05/10/2012 01/11/2013 documented as of this encounter Care Teams Flatware Maker Relationship Specialty Start Date End Date Jean Munoz MD [address] [place] [phone] PCP - General 12/31/08 Manny Rizzo MD [address] [place] [phone] 04/20/10 documented as of this encounter
--- OUTSIDE RECORDS SUMMARY | 2024-06-10 07:29 | XMS_ITS | Encounter Summary ---
Author Organization [facility] Address [address] [place] [address] Care Team Providers Care Automatic Hemmer Name Role Phone Jean Munoz MD Primary Care Provider Manny Rizzo MD Unavailable Reason for Visit * Reason Comments Urinary Incontinence Encounter Details Date Type Department Care Team (Late st Contact Info) Description 01/11/2013 14:30 EDT Office Visit [facility] [address] [place], [place] [id number] Alban Powers MD [address] [place] [phone] Hesitancy (Primary Dx) Social History Tobacco Use [...] - Weight 90.3 kg (199 lb) 01/11/2013 1501 EDT per patient Height 162.6 cm (5' 4) 01/11/2013 1501 EDT per patient Body Mass Index 34.16 01/11/2013 1501 EDT documented in this encounter Functional Status Cognitive Status Response Date of Assessm ent Because of a physical, menta l, or emotional condition, do you have serious difficulty concentrating, remembering, or making decisions? (5 years old or older) Yes 04/05/2012 documented as of this encounter Progress Notes * Priya Alban - 01/11/2013 1526 EDT Subjective: Patient ID: Liset Viera is an [address] Jean Munoz has requested that I see Liset Viera in consultation for Urinary hesitancy and wetting the bed. HPI Comments: I reviewed patient's bladder scan: she voided 2-3 ounces, and residual urine amount was 111 ml Main problem is hesitancy - going on for years; it's getting worse - the problem is trying to get it to come out For the past week, she has been wetting the bed - I mean flood (4 out of 7 nights); baseline is she wakes up twice at night to void and she stays dry Denies recent changes in medication Had an epidural steroid injection about a month ago (had this a couple times before; last injectionbefore this one was a year and a half ago) Smoked 35 years 1-2 ppd; quit two years ago Had a pelvic exam today in PCP office s/p hysterectomy in one bladder infection in her life and that was after surgery Patient Active Problem List Diagnoses ??? Severe [...] ??? Ankle fracture surgery 04/01/10 left ankle [facility] ??? Cyst incision and [...] ??? Motrin (Ibuprofen) Itching Review of Systems Constitutional: Negative for fever, chills and weight loss. Gastrointestinal: Negative for constipation. Genitourinary: Positive for flank pain. No daytime frequency Lately, if she is very full and has a strong urge, she may start her stream on the way to the bathroom No gross hematuria or painful urination - See HPI Objective: Ht 162.6 cm (64) Wt 90.266 kg (199 lb) BMI 34.16 kg/m2 LMP 01/11/1987 Physical Exam Constitutional: She appears well-developed and well-nourished. No distress. Cardiovascular: Normal rate and regular rhythm. Pulmonary/Chest: Breath sounds normal. Abdominal: Soft. She exhibits no distension. There is tenderness. Mild RLQ tenderness Musculoskeletal: She exhibits tenderness. She exhibits no edema. Bilateral slight to mild CVA tenderness Lymphadenopathy: She has no cervical adenopathy. Skin: Skin is warm and dry. Psychiatric: She has a normal mood and affect. No visits with results within 1 Day(s) from this visit. Latest known visit with results is: Admission on 10/26/2012, Discharged on 10/26/2012 Component Date Value Range Status ??? Glucose, Screening 10/26/2012 102* 70 - 100 mg/dl Final Comment: Slight hemolysis Results may be affected due to hemolysis. ??? Sodium 10/26/2012 142 136 - 145 mEq/L Final Slight hemolysis ??? Potassium 10/26/2012 4.7 3.5 - 5.0 mEq/L Final Comment: Slight hemolysis Hemolysis may elevate potassium result. ??? Chloride 10/26/2012 108 96 - 110 mEq/L Final Slight hemolysis ??? CO2 10/26/2012 24 24 - 32 mEq/L Final Slight hemolysis ??? BUN 10/26/2012 16 10 - 26 mg/dl Final Comment: Slight hemolysis Results may be affected due to hemolysis. ??? Creatinine 10/26/2012 0.61 0.52 - 1.04 mg/dl Final Slight hemolysis ? ? GFR, Calculated 10/26/2012 >60 >60 ml/min/1.73m2 Final ??? Magnesium 10/26/2012 2.3 1.7 - 2.8 mg/dl Final Comment: Slight hemolysis Results may be affected due to hemolysis. ??? Phosphorus 10/26/2012 3.0 2.5 - 4.5 mg/dl Final Comment: Slight hemolysis Results may be affected due to hemolysis. ??? Calcium 10/26/2012 8.3* 8.5 - 10.5 mg/dl Final Slight hemolysis ??? Calculated Calcium 10/26/2012 8.9 8.5 - 10.5 mg/dl Final ??? Pro Time 10/26/2012 10.0 9.5 - 13.1 secs Final ??? I.N.R. 10/26/2012 0.9 0.9 - 1.1 Ratio Final Comment: Moderate Intensity Coumadin INR = 2.0-3.0 Adjustments in anticoagulant therapy dose should be based upon the INR and NOT the Pro Time. ??? PTT 10/26/2012 27 26 - 37 secs Final Therapeutic Heparin range: 65-100 seconds ??? WBC 10/26/2012 6.93 4.0 - 12.4 K/cmm Final ??? RBC 10/26/2012 4.01 3.86 - 5.04 M/cmm Final ??? Hemoglobin 10/26/2012 12.9 11.6 - 15.2 gm/dl Final ??? HCT 10/26/2012 37.9 34.9 - 44.4 % Final ??? MCV 10/26/2012 94 81 - 98 fl Final ??? MCH 10/26/2012 32.2 26.7 - 33.3 pg Final ??? MCHC 10/26/2012 34.1 32.1 - 35.9 gm/dl Final ??? PLT 10/26/2012 263 141 - 320 K/cmm Final ??? RDW-CV 10/26/2012 15.0* 11.7 - 14.6 % Final ??? Neutrophils 10/26/2012 52.2 45.5 - 79.7 % Final ??? Lymphocytes 10/26/2012 34.8 15.0 - 46.8 % Final ??? Monocytes 10/26/2012 8.2 1.8 - 12.0 % Final ??? Eosinophils 10/26/2012 3.9 0.6 - 6.9 % Final ??? Basophils 10/26/2012 0.9 0.2 - 1.4 % Final ??? ABS Neutrophils 10/26/2012 3.62 2.20 - 8.85 K/cmm Final ??? ABS Lymphs 10/26/2012 2.41 1.09 - 3.30 K/cmm Final ??? ABS Monocytes 10/26/2012 0.57 0.1 - 0.8 K/cmm Final ??? ABS Eosinophils 10/26/2012 0.27 0.03 - 0.61 K/cmm Final ??? ABS Basophils 10/26/2012 0.06 0.01 - 0.11 K/cmm Final ??? Type of Diff: 10/26/2012 Automated Final PSA: No results found for this basename: PSA BMP: Lab Results Component Value Date NA 142 10/26/2012 K 4.7 10/26/2012 CL 108 10/26/2012 CO2 24 10/26/2012 BUN 16 10/26/2012 CREATININE 0.61 10/26/2012 CALCIUM 8.3* 10/26/2012 CALCCA 8.9 10/26/2012 MG 2.3 10/26/2012 PHOS 3.0 10/26/2012 LABALBU 3.9 07/21/2011 Assessment / Plan: 1. Hesitancy hesitancy may be as long as 30-45 minutes; this is what bothers her the most; cystoscopy next ov to evaluate anatomy of bladder and urethra incomplete bladder emptying with check of residual urine today; no overdistended bladder, though clean catch midstream urine specimen for UA observe sx of wetting the bed - patient will keep a record Alban Powers MD documented in this encounter Miscellaneous Notes * Scanned Note-Null - VIRTUAL OFFICE ASSISTANT, SCAN 2 - 01/16/2013 0107 EDT documented in this encounter Plan of Treatment Upcoming Encounters Date Type Department Care Team (Late st Contact Info) Description 06/29/2024 14:15 EDT Office Visit [facility] [address] [place] [address] Jean Munoz MD [address] [place] [phone] documented as of this encounter Procedures Procedure Name Priority Date/Time Associated Diagnosis Comments URINE CHEMICAL (DIP) & SEDIMENT (MICRO) WITHOUT REFLEX TO CULTURE Routine 01/11/2013 16:15 EDT Hesitancy UROLOGY BLADDER SCAN Routine 01/11/2013 15:04 EDT Hesitancy documented in this encounter Results * (ABNORMAL) UA WITH MICROSCOPIC (01/11/2013 16:15 EDT) Color, UA Yellow [facility] Clarity, UA Clear [facility] Glucose, UA Neg Neg [facility] Bilirubin, UA Neg Neg [facility] Ketones, UA Neg Neg [facility] Specific [place], Urine >1.030 1.001 - 1.035 [facility] Blood, UA Neg Neg [facility] pH, UA 5.5 4.6 - 8.0 [facility] Protein, UA Neg Neg [facility] Urobilinogen, UA 0.2 0.2 - 1.0 E.U./dl [facility] Nitrite, UA Neg Neg [facility] Leuk Esterase Neg Neg [facility] WBC, UA None seen 0 - 5 /HPF [facility] RBC, UA less than 1 0 - 5 /HPF [facility] Squam Epithel, UA Few(A) None seen /HPF [facility] Renal Epithel, UA None seen None seen /HPF [facility] Bacteria, UA None seen None seen /HPF [facility] Crystals, UA 10 to 30 /HPF [facility] Comment:Calcium Oxalate Hyaline Casts, UA None seen /LPF FL [facility] UA Comment Microscopic results [facility] Comment: are unreliable on urines unrefrig >2hrs or refrig >8hrs. Mucus, UA Present [facility] Additional Findings Small sample, less than 12 ml received. [facility] Refractometer SG,Urine 1.031 1.001 - 1.035 [facility] Urine specimen (specimen) URINE / Unknown 01/11/2013 16:15 EDT 01/11/2013 16:49 EDT Alban Powers MD URINALYSIS ORDERABLE S Performing Organization Address City/[facility]/ZIP Co de Phone Number [facility] [address] [place] [address] * UROLOGY BLADDER SCAN (01/11/2013 15:04 EDT) Bladder Scan 69 ml POINT OF CARE Comment:voided 3 0z Urine specimen (specimen) 01/11/2013 15:04 EDT Alban Powers MD UROLOGY ORDERABLES POINT OF CARE documented in this encounter [...] colon documented in this encounter Care Teams Automatic Hemmer Relationship Specialty Start Date End Date Jean Munoz MD [address] [place] [phone] PCP - General 12/31/08 Manny Rizzo MD [address] [place] [phone] 04/20/10 documented as of this encounter
--- OUTSIDE RECORDS SUMMARY | 2024-06-10 07:29 | XMS_ITS | Encounter Summary ---
Author Organization [facility] Address [address] [place] [address] Care Team Providers Care Managing Partner Name Role Phone Jean Munoz MD Primary Care Provider Manny Rizzo MD Unavailable Reason for Visit * Reason Onset Date Comments Medications Refill 10/06/2012 Encounter Details Date Type Department Care Team (Late st Contact Info) Description 10/06/2012 Refill [facility] - [address] [phone] Tiana Bacon [address] [place] [phone] Medications Refill Social History Tobacco Use [...] the afternoon for narcolepsy 30 Tab 0 10/06/2012 10/26/2012 documented in this encounter Miscellaneous Notes * Telephone Encounter - Corirna Ac RN - 10/06/2012 1301 EST Spoke with pt, she stated doctor only signed one of the two prescriptions; the Ritalin 10mg was unsigned. Called patient's pharmacist, Martin at the [facility] in [place], and verified that pt filled the Ritalin SR 20 mg but not the Ritalin 10 mg. Pt instructed to return both the signed and unsigned prescription to her pharmacy in [place], Martin the pharmacist agreed to collect both. Pt unable to drive downto [place] and is having a friend, Tulio, orange picking supervisor her prescription for her. * Telephone Encounter - Barbara Gimenez - 10/06/2012 1240 EST PT had picked up script for Ritalin 10mg and it was not signed. She needs another script. Please call. documented in this encounter Plan of Treatment Upcoming Encounters Date Type Department Care Team (Late st Contact Info) Description 06/29/2024 14:15 EDT Office Visit [facility] [address] [place] [address] Jean Munoz MD [address] [place] [phone] documented as of this encounter Visit Diagnoses Not on filedocumented in this encounter Discontinued Medications Medication Sig Discontinue Reason Start Date End Da te methylphenidate (RITALIN;METHYLIN) 10 mg tablet Take one tab in the afternoon for narcolepsy Reorder 10/01/2012 10/06/2012 documented as of this encounter Care Teams Managing Partner Relationship Specialty Start Date End Date Jean Munoz MD [address] [place] [phone] PCP - General 12/31/08 Manny Rizzo MD [address] [place] [phone] 04/20/10 documented as of this encounter
--- OUTSIDE RECORDS SUMMARY | 2024-06-10 07:29 | XMS_ITS | Encounter Summary ---
Author Organization [facility] Address [address] [place] [address] Care Team Providers Care Bus Driver/Monitor Name Role Phone Jean Munoz MD Primary Care Provider Manny Rizzo MD Unavailable Reason for Visit * Reason Onset Date Comments Medications Refill 11/17/2012 Encounter Details Date Type Department Care Team (Late st Contact Info) Description 11/17/2012 Refill [facility] Sleep Program - [address] [phone] Corrina Ac, RN [address] [place] [address] Medications Refill Social History Tobacco Use Types [...] for narcolepsy 30 Tab 0 11/23/2012 12/20/2012 methylphenidate (RITALIN SR; METADATE ER; METHYLIN ER) 20 mg SR tablet Brand only. Take 2 tabs in the morning for narcolepsy. 60 Tab 0 11/23/2012 12/20/2012 documented in this encounter Miscellaneous Notes * Telephone Encounter - Corrina Ac RN - 11/22/2012 1009 EDT Pt requested Ritalin refills, to coal picker [facility] documented in this encounter Plan of Treatment Upcoming Encounters Date Type Department Care Team (Late st Contact Info) Description 06/29/2024 14:15 EDT Office Visit [facility] [address] [place], [place] [phone] Jean Munoz MD [address] [place] [phone] documented as of this encounter Visit Diagnoses Not on filedocumented in this encounter Discontinued Medications Medication Sig Discontinue Reason Start Date End Da te methylphenidate (RITALIN SR; METADATE ER; METHYLIN ER) 20 mg SR tablet Brand only. Take 2 tabs in the morning for narcolepsy. Reorder 10/26/2012 11/17/2012 methylphenidate (RITALIN;METHYLIN) 10 mg tablet Take one tab in the afternoon for narcolepsy Reorder 10/26/2012 11/17/2012 documented as of this encounter Care Teams Bus Driver/Monitor Relationship Specialty Start Date End Date Jean Munoz MD [address] [place] [phone] PCP - General 12/31/08 Manny Rizzo MD [address] [place] [phone] 04/20/10 documented as of this encounter
--- OUTSIDE RECORDS SUMMARY | 2024-06-10 07:29 | XMS_ITS | Encounter Summary ---
Author Organization [facility] Address [address] [place] [address] Care Team Providers Care Contact Lens Manufacturer Name Role Phone Jean Munoz MD Primary Care Provider Manny Rizzo MD Unavailable Encounter Details Date Type Department Care Team (Late st Contact Info) Description 09/28/2012 Phlebotomy Only [address] [phone] [employer], Outpatient Asthma Social History Tobacco Use Types Packs/Day Years [...] 06/29/2024 14:15 EDT Office Visit [facility] [address] [place] [address] Jean Munoz MD [address] [place] [phone] documented as of this encounter Procedures Procedure Name Priority Date/Time Associated Diagnosis Comments DIFFERENTIAL Routine 09/28/2012 10:43 EST COMPLETE BLOOD COUNT Routine 09/28/2012 10:43 EST COMPLETE BLOOD COUNT AND DIFFERENTIAL Routine 09/28/2012 10:43 EST Asthma IGE Routine 09/28/2012 10:43 EST Asthma documented in this encounter Results * DIFFERENTIAL (09/28/2012 10:43 EST) % Neutrophils 59.3 45.5 - 79.7 % [facility] % Lymphocytes 29.9 15.0 - 46.8 % [facility] % Monocytes 6.8 1.8 - 12.0 % [facility] % Eosinophils 3.3 0.6 - 6.9 % [facility] % Basophils 0.7 0.2 - 1.4 % [facility] ABS Neutrophils 4.44 2.20 - 8.85 K/cmm [facility] ABS Lymphs 2.24 1.09 - 3.30 K/cmm [facility] ABS Monocytes 0.51 0.1 - 0.8 K/cmm [facility] ABS Eosinophils 0.25 0.03 - 0.61 K/cmm [facility] ABS Basophils 0.05 0.01 - 0.11 K/cmm [facility] Type of Diff: Automated [facility] 09/28/2012 10:4 3 EST 09/28/2012 10:52 EST Jeanette Virk MD HEMATOLO GY & PF4 ORDERABLES [facility] [address] [place] [address] * HEMAGRAM (09/28/2012 10:43 EST) WBC 7.49 4.0 - 12.4 K/cmm [facility] RBC 4.03 3.86 - 5.04 M/cmm [facility] Hemoglobin 12.5 11.6 - 15.2 gm/dl [facility] HCT 38.1 34.9 - 44.4 % [facility] MCV 94 81 - 98 fl [facility] MCH 30.9 26.7 - 33.3 pg [facility] MCHC 32.7 32.1 - 35.9 gm/dl [facility] PLT 270 141 - 320 K/cmm [facility] RDW-CV 14.5 11.7 - 14.6 % [facility] 09/28/2012 10:4 3 EST 09/28/2012 10:52 EST Jeanette Virk MD HEMATOLO GY & PF4 ORDERABLES Performing Organization Address [facility] de Phone Number [facility] [address] [place] [address] * IGE (09/28/2012 10:43 EST) IgE 19 <158 IU/ml [facility] Blood specimen (specimen) 09/28/2012 10:43 EST 09/28/2012 10:52 EST Jeanette Virk MD CHEMISTR Y & BLOOD GAS ORDERABLES Performing Organization Address [facility] de Phone Number [facility] [address] [place] [address] documented in this encounter Visit Diagnoses Diagnosis Asthma Unspecified asthma Screening for osteoporosis- Primary Special screening for osteoporosis Primary narcolepsy without cataplexy Chronic pain syndrome Chronic low back pain Lumbago Chronic use of opiate for therapeutic purpose Pain medication agreement Encounter for long-term (current) use of other medications Screen for colon cancer Special screening for malignant neoplasms, colon documented in this encounter Care Teams Contact Lens Manufacturer Relationship Specialty Start Date End Date Jean Munoz MD [address] [place] [phone] PCP - General 12/31/08 Manny Rizzo MD [address] [place] [phone] 04/20/10 documented as of this encounter
--- OUTSIDE RECORDS SUMMARY | 2024-06-10 07:29 | XMS_ITS | Encounter Summary ---
Author Organization [facility] Address [address] [place] [address] Care Team Providers Care Consumer Banker Name Role Phone Jean Munoz MD Primary Care Provider Manny Rizzo MD Unavailable Reason for Referral * Consult (Routine/Next Available) - Closed Specialty Diagnoses / Procedures Referred By Contac t Referred To Contact Otolaryngology Diagnoses BPPV (benign paroxysmal positional vertigo) [place] [address] Referral ID Status Reason Start Date Expiration Date V isits Requested Visits Authorized [id number] Closed Specialty Services Required 12/13/2012 1 1 Question Answer Reason for Request: please evaluate--patient reports tinnitus, dizziness, ear pain, and hearing loss. Wilda Hallpike seemed to elicit dizziness. See Sleep Medicine note 12/13/2012 * Consult, Test and Treat (Routine/Next Available) - Closed Specialty Diagnoses / Procedures Referred By Contac t Referred To Contact Rehab Therapies Diagnoses BPPV (benign paroxysmal positional vertigo) [place] [address] Referral ID Status Reason Start Date Expiration Date V isits Requested Visits Authorized [id number] Closed Specialty Services Required 12/13/2012 1 1 Question Answer Reason for Request: vestibular rehab, suspect BPPV Date of Onset or Injury: 6 mos ago Comments Patient reports dizziness, when tuning to the Left. [place] Hallpike reproduced symptoms. Also requesting ENT referral for further evaluation regarding possible hearing loss., intermittent ear pain. * Consult, Test and Treat (Routine/Next Available) - Closed Specialty Diagnoses / Procedures Referred By Contac t Referred To Contact Audiology Diagnoses BPPV (benign paroxysmal positional vertigo) [place] [address] [facility] Audiology [address] [place] [id number] Referral ID Status Reason Start Date Expiration Date V isits Requested Visits Authorized [id number] Closed Specialty Services Required 12/13/2012 1 1 Question Answer Reason for Referral ([facility] not offering Hearing Aid Eval): Comprehensive Hearing Eval Comments Please evaluate for hearing loss. Patient seen for dizziness, but also complains of hearing loss--neuro testing inconsistent (see note) and occasional ear pain. Reason for Visit * Reason Comments Follow-up Encounter Details Date Type Department Care Team (Late st Contact Info) Description 12/13/2012 9:40 EDT Office Visit [facility] Sleep [facility] - [address] [place] [address] BPPV (benign paroxysmal positional vertigo) (Primary Dx); Headache Discharge Disposition: Auto Discharge Social History Tobacco [...] Reading Time Taken Comments Blood Pressure 128/70 12/13/2012 1006 EDT Pulse 82 12/13/2012 1006 EDT Temperature - - Respiratory Rate 14 12/13/2012 1006 EDT Oxygen Saturation 100% 12/13/2012 1006 EDT Inhaled Oxygen Concentration - - Weight 91.2 kg (201 lb) 12/13/2012 1006 EDT Height 162.6 cm (5' 4) 12/13/2012 1006 EDT Body Mass Index 34.5 12/13/2012 1006 EDT documented in this encounter Functional Status Cognitive Status Response Date of Assessm ent Because of a physical, menta l, or emotional condition, do you have serious difficulty concentrating, remembering, or making decisions? (5 years old or older) Yes 04/05/2012 documented as of this encounter Discharge Disposition Disposition Code Departure Means Destination Auto Discharge documented in this encounter Progress Notes * Tiana Bacon MD - 12/13/2012 1112 EDT HPI: Ms. Viera is a 51 year old W with a history of narcolepsy, who presents for evaluation of of dizziness (which she described as vertigo) and headache. She was last seen in clinic on 10/26/2012. At that time, she complained of headache and vertigo. An MRI and MRA brain were obtained for work up given her history of diabetes and prior smoking. MRI brain showed scattered T2 hyper-intensities, and MRA showed no significant stenosis in the posterior or anterior circulation. She was recommended to keep a headache diary, which she did not bring with her today. She states that she has not had a headache for the past 2 weeks. She drinks 3-4 cans of Pepsi a day, and feels her headache would be worse if she were to cut back. She quit smoking over a year ago, however, she continues to be exposed to second hand smoke from her . With regards to the dizziness, she states that she continues to experience it. It occurs when she is standing up, and then turns (usually when she turns to the left). When asked what she means by dizziness, she says that the room is not quite spinning, but rather, she feels off balance. This dizziness started around 6 mos ago, and has been occurring with more frequency since when it first started. She also reports having bad ringing in the ears which has gone on for years, preceding the dizziness. She used to appreciate the ringing when she was in bed at night (because it was quiet), but now, she also notices during the day. She also thinks that she has hearing loss. She says it is easier to hear things on the phone when it is held up to her right ear. When asked if she has had personal or occupational exposure to loud noises, she states that her like to sai ear splitting music, as he is hard of hearing as well. She also experiences R ear pain on and off, which has occurred for the past couple of months. Additionally, she states that she experiences nausea all the time. Sometimes if comes on all of the sudden, and at times, it can last for days. She states that the dizziness is more prominent when she is nauseous (not that she is more nauseous when she is dizzy). She has experienced nausea for months and its etiology is unknown. She has been prescribed promethazine, but it does not seem helpful. Outpatient Prescriptions Marked as Taking for the 12/13/12 encounter (Office Visit) with Tiana Bacon MD Medication Sig Dispense Refill ??? omeprazole (PRILOSEC) 40 mg capsule Take [...] 2 times daily. 3 Inhaler 3 ??? methylphenidate (RITALIN SR; METADATE ER; METHYLIN [...] eyes 4 times daily. 2Tray 11 ??? promethazine (PHENERGAN) 25 mg tablet Take 1 Tab by mouth every 6 hours as needed for Nausea. 30 Tab 1 ??? hydroxypropyl methylcellulose (ISOPTO TEARS) 0.5 % ophthalmic solution Place 1 Drop into both eyes 5 times daily. ??? docusate sodium (COLACE) 100 mg capsule Take 1 Cap by mouth 2 times daily as needed for Constipation. Allergies Allergen Reactions ??? Toradol (Ketorolac Tromethamine) Hives ??? Motrin (Ibuprofen) Itching ROS: see HPI for pertinent positives and negatives EXAM: Filed Vitals: 12/13/12 1006 BP: 128/70 Pulse: 82 Resp: 14 Height: 162.6 cm (64) Weight: 91.173 kg (201 lb) SpO2: 100% II, III, IV, : PERRLA, EOMI, fundus normal, discs sharp, VFFC, no nystagmus noted V: facial sensation intact VII: no facial weakness VIII: hearing intact to spoken word, Resendiz testing-- intially localizes to L ear, but on repeat testing, localizes to R ear; Rinne test--AC > BC in both ears IX: palate elevates symmetrically XI: shoulder shrug symmetric XII: tongue midline to protrusion Motor: 5/5 BUE and BLE proximally to distally, normal tone and bulk Reflexes: 2/4 BUE, bilateral patellar, bilat AJ, plantars downgoing bilaterally Sensation: intact to vibration, light touch, intact cold touch in upper and lower extremities. Inconsistent testing with sharp touch. Romberg negative Coordination: FTN and HTS intact Gait: narrow, steady, tandem in-line Other: [place] Hallpike elicited dizziness when head was turned to the left, though no nystagmus was seen. A/P: Ms. 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 She had been evaluated in October 2012. Her description, today is somewhat different from when she was last seen. On past evaluation, there was concern that this was migrainous vertigo, or possibly due to intracranial vascular issues with the posterior circulation. Headache has remitted in the past 2 weeks, though she continues to experience dizziness.. She was advised to limit her consumption of caffeine, and to minimize her use of medications such as Vicodin,which could potentially exacerbate headache. With regards to her dizziness, my suspicion based on her positive Wilda Hallpike, and her report thather dizziness is elicited by changes in position (turning to the left), is that she has BPPV. She also reports intermittent ear pain, tinnitus, and hearing loss.These symptoms seem somewhat vague by her description. Initially she stated that hearing was better in the left ear, and then in the right, and getting specific answers with regards to her symptoms is difficult. Audiology testing was ordered, however, out of concern for her other symptoms, it was suggested by audiology that she should be seen by ENT prior to testing. Additionally, I would like for her to be seen by vestibular rehab, to treat her vertigo. documented in this encounter Plan of Treatment Upcoming Encounters Date Type Department Care Team (Late st Contact Info) Description 06/29/2024 14:15 EDT Office Visit [facility] [address] [place] [address] Jean Munoz MD [address] [place] [phone] Scheduled Referrals Name Type Priority Associated Diagnoses Orde r Schedule AMB CONSULT AUDIOLOGY Outpatient Referral Routine BPPV (benign paroxysmal positional vertigo) Ordered: 12/13/2012 AMB CONSULT PHYSICAL THERAPY Outpatient Referral Routine BPPV (benign paroxysmal positional vertigo) Ordered: 12/13/2012 AMB CONSULT ENT Outpatient Referral Routine BPPV (benign paroxysmal positional vertigo) Ordered: 12/13/2012 documented as of this encounter Visit Diagnoses Diagnosis BPPV (benign paroxysmal positional vertigo)- Primary Benign paroxysmal positional vertigo Headache(784.0) Headache Screening for osteoporosis- Primary Special screening for osteoporosis Primary narcolepsy without cataplexy Chronic pain syndrome Chronic low back pain Lumbago Chronic use of opiate for therapeutic purpose Pain medication agreement Encounter for long-term (current) use of other medications Screen for colon cancer Special screening for malignant neoplasms, colon documented in this encounter Care Teams Consumer Banker Relationship Specialty Start Date End Date Jean Munoz MD [address] [place] [phone] PCP - General 12/31/08 Manny Rizzo MD [address] [place] [phone] 04/20/10 documented as of this encounter
--- OUTSIDE RECORDS SUMMARY | 2024-06-10 07:29 | XMS_ITS | Encounter Summary ---
Author Organization [facility] Address [address] [place] [address] Care Team Providers Care Director Alliance Marketing Name Role Phone Jean Munoz MD Primary Care Provider Manny Rizzo MD Unavailable Reason for Visit * Reason Onset Date Comments Appointment Related 12/28/2012 Encounter Details Date Type Department Care Team (Late st Contact Info) Description 12/28/2012 Telephone [facility] Rehabilitation Therapy [address] [address] Jean Munoz MD [address] [place] [phone] Appointment Related Social History Tobacco Use [...] encounter Miscellaneous Notes * Telephone Encounter - Ale Smith - 12/28/2012 1018 EDT Liset has rescheduled her Physical Therapy evaluation to 01/04, she had cortisone shots in her back and is in too much pain for therapy today. documented in this encounter Plan of Treatment Upcoming Encounters Date Type Department Care Team (Late st Contact Info) Description 06/29/2024 14:15 EDT Office Visit [facility] [address] [place] [address] Jean Munoz MD [address] [place] [phone] documented as of this encounter Visit Diagnoses Not on filedocumented in this encounter Care Teams Director Alliance Marketing Relationship Specialty Start Date End Date Jean Munoz MD [address] [place] [phone] PCP - General 12/31/08 Manny Rizzo MD [address] [place] [phone] 04/20/10 documented as of this encounter
--- OUTSIDE RECORDS SUMMARY | 2024-06-10 07:29 | XMS_ITS | Encounter Summary ---
Author Organization [facility] Address [address] [place] [address] Care Team Providers Care Youth Teacher Name Role Phone Jean Munoz MD Primary Care Provider Manny Rizzo MD Unavailable Reason for Visit * Reason Comments Back Pain low back pain Encounter Details Date Type Department Care Team (Latest Contact Info) Description 12/27/2012 10:30 EDT Office Visit [facility] Interventional Pain [address] [place], [place] [phone] Ho Holt, DO [address] [facility] [address] [place], [place] [address] Lumbar radicular syndrome (Primary Dx); Degeneration of lumbar or lumbosacral intervertebral disc; Chronic back pain Social History Tobacco Use [...] Sign Reading Time Taken Comments Blood Pressure 115/79 12/27/2012 1132 EDT Pulse 71 12/27/2012 1132 EDT Temperature 36.3 ??C (97.3 ??F) 12/27/2012 1025 EDT Respiratory Rate 16 12/27/2012 1025 EDT Oxygen Saturation - - Inhaled Oxygen Concentration - - Weight 90.7 kg (200 lb) 12/27/2012 1025 EDT Height 157.5 cm (5' 2) 12/27/2012 1025 EDT Body Mass Index 36.58 12/27/2012 1025 EDT documented in this encounter Functional Status Cognitive Status Response Date of Assessm ent Because of a physical, menta l, or emotional condition, do you have serious difficulty concentrating, remembering, or making decisions? (5 years old or older) Yes 04/05/2012 documented as of this encounter Patient Instructions * Patient Instructions* Laisha Grover RN - 12/27/2012 11:21 EDT [facility] [address] [address] Patient Instructions You have had your lumbosacral Epidural Steroid Injection. The purpose of this procedure has been toplace medication which may help relieve your pain. Steroid may be used to decrease the swelling andnerve irritation which may be causing your pain. [...] or bowel functions, please call our office at once. Instructions for follow-up If you have any questions about your block, please call Patient Education Topic: Method: Handout and Verbal Taught to: Patient Barriers: None Outcomes: independent and verbalized understanding Signature:LAISHA GROVER RN documented in this encounter Progress Notes * Ho Holt - 12/27/2012 1131 EDT PT NAME: Liset Viera : 1960 DOS: 12/27/2012 BINDERY ASSISTANT: Ho Holt DO RETAIL LEASING AGENT: N/A PROCEDURE: lumbar epidural steroid injection L4-5 DIAGNOSIS: 1. Lumbar radicular syndrome 2. Degeneration of lumbar or lumbosacral intervertebral disc 3. Chronic back pain INTERVAL HISTORY Liset Viera presents for LESI. She was seen for consultation in October and returns for treatment as planned. She denies any changes in the pattern or quality of her pain since our initial evaluation. Denies fever, chills,bleeding diathesis, or recent changes in strength, sensation, and incontinence. EXAMINATION Blood pressure 106/62, pulse 86, temperature 36.3 ??C (97.3 ??F), temperature source Tympanic, resp. rate 16, height 157.5 cm (62), weight 90.719 kg (200 lb). General: awake, alert, cooperative, no apparent distress Skin: no rashes, bruises or petechiae noted Gait: normal gait, steady stance Joints: no redness, warmth, or swelling of the joints IMPRESSION/PLAN LESI L4-5 as planned. FU 6 wks for LESI vs TFESI if no relief within 2 weeks we will order an MRI LS. PROCEDURE The patient gave informed [...] of intravascular or intrathecal injection. After negative aspirati on, 80 mg Depo-Medrol and 2 ml Normal Saline were injected. The needle was then flushed and withdrawn. The patient tolerated the procedure well, there were no apparent complications, and discharged in stable condition. Written and verbal discharge instructions were reviewed with the patient prior to discharge. Ho Holt DO 12/27/2012 * Lata Vu - 12/27/2012 1027 EDT [facility] Rooming Note Does patient have a Inside Sales Territory Manager? Alea Is patient NPO? (Solids since midnight & [...] ? no Other: documented in this encounter Miscellaneous Notes * Scanned Note-Null - RELAY ASSOCIATE, SCAN 2 - 2012 0804 EDT documented in this encounter Plan of Treatment Upcoming Encounters Date Type Department Care Team (Late st Contact Info) Description 06/29/2024 14:15 EDT Office Visit [facility] [address] [place], [place] [phone] Jean Munoz MD [address] [place] [phone] documented as of this encounter Visit Diagnoses Diagnosis Lumbar radicular syndrome- Primary Thoracic or lumbosacral neuritis or radiculitis, unspecified Degeneration of lumbar or lumbosacral intervertebral disc Chronic back pain Backache, unspecified Screening for osteoporosis- Primary Special screening for osteoporosis Primary narcolepsy without cataplexy Chronic pain syndrome Chronic low back pain Lumbago Chronic use of opiate for therapeutic purpose Pain medication agreement Encounter for long-term (current) use of other medications Screen for colon cancer Special screening for malignant neoplasms, colon documented in this encounter Care Teams Youth Teacher Relationship Specialty Start Date End Date Jean Munoz MD [address] [place] [phone] PCP - General 12/31/08 Manny Rizzo MD [address] [place] [address] 04/20/10 documented as of this encounter
--- OUTSIDE RECORDS SUMMARY | 2024-06-10 07:29 | XMS_ITS | Encounter Summary ---
Author Organization [facility] Address [address] [place] [address] Care Team Providers Care Aerial Survey Technician Name Role Phone Jean Munoz MD Primary Care Provider Manny Rizzo MD Unavailable Reason for Visit * Reason Onset Date Comments Appointment Related 12/19/2012 Encounter Details Date Type Department Care Team (Late st Contact Info) Description 12/19/2012 Telephone [facility] Rehabilitation Therapy - [facility] [address] [place] [address] Alban Reno, PT [address] [place] [phone] Appointment Related Social History Tobacco [...] encounter Miscellaneous Notes * Telephone Encounter - Joceline Andrade - 12/19/2012 1046 EDT Patient called to cancel today's physical therapy evaluation for vertigo due to her ride cancelling. Rescheduled evaluation. documented in this encounter Plan of Treatment Upcoming Encounters Date Type Department Care Team (Late st Contact Info) Description 06/29/2024 14:15 EDT Office Visit [facility] [address] [place] [address] Jean Munoz MD [address] [place] [phone] documented as of this encounter Visit Diagnoses Not on filedocumented in this encounter Care Teams Aerial Survey Technician Relationship Specialty Start Date End Date Jean Munoz MD [address] [place] [phone] PCP - General 12/31/08 Manny Rizzo MD [address] [place] [phone] 04/20/10 documented as of this encounter
--- OUTSIDE RECORDS SUMMARY | 2024-06-10 07:29 | XMS_ITS | Encounter Summary ---
Author Organization [facility] Address [address] [place] [address] Care Team Providers Care Manager Interventional Name Role Phone Jean Munoz MD Primary Care Provider Manny Rizzo MD Unavailable Reason for Visit * Reason Comments Knee Pain left knee pain Encounter Details Date Type Department Care Team (Late st Contact Info) Description 02/01/2013 9:30 EDT Office Visit [facility] Medicine Program - [address] [phone] Bear Glynn MD [address] [place] [phone] Left knee pain (Primary Dx) Social [...] as of this encounter Progress Notes * Bear Glynn MD - 02/13/2013 0924 EDT PROBLEM: Chronic left knee pain. SUBJECTIVE: Ms Viera states that the injection that was performed at her last visit in August did not do change her symptoms. Her feelings of giving way have become worse. She continues to have swelling if she is on it alot. She describes the pain as an achy pain. It bothers her twisting and turning. At the present time, she is taking 4 Vicodin a day for her discomfort. She is doing exercises at physical therapy. She does have some hip pain and has been told that she has sciatic nerve issues. She evidently has had a spine injection, which has not been of any benefit. OBJECTIVE: Examination of the left knee shows pain with hyperextension. She has tenderness along the medial and lateral patellar retinacula. There is no palpable effusion. There is tenderness along the medial joint line. There is no lateral joint line tenderness. Cleve's is negative. Negative Micha, negative posterior drawer. The knee is stable to varus and valgus stress in full extension or 30 degrees of flexion. ASSESSMENT: Ms Viera' symptoms have changed. Her tenderness over the pes is decreased; however, she has more joint line tenderness. Review of her MR from 03/2012 showed evidence of a high-grade radial tear. At this point, I think that we need to address this. However, given the fact that her imaging is greater than 6 months old, we need to look at her articular surface as well to see whether given the presence literature arthroscopy would have any benefit. PLAN: MR imaging of her left knee to evaluate her medial compartment articular cartilage. Will discuss treatment options including arthroscopic surgery at that point if indicated. documented in this encounter Plan of Treatment Upcoming Encounters Date Type Department Care Team (Late st Contact Info) Description 06/29/2024 14:15 EDT Office Visit [address] [address] Jean Munoz MD [address] [place] [phone] documented as of this encounter Visit [...] documented in this encounter Care Teams Manager Interventional Relationship Specialty Start Date End Date Jean Munoz MD [address] [place] [phone] PCP - General 12/31/08 Manny Rizzo MD [address] [place] [phone] 04/20/10 documented as of this encounter
--- OUTSIDE RECORDS SUMMARY | 2024-06-10 07:29 | XMS_ITS | Encounter Summary ---
Author Organization [facility] Address [address] [place] [address] Care Team Providers Care Bobbin Winder Name Role Phone Jean Munoz MD Primary Care Provider Manny Rizzo MD Unavailable Reason for Referral * Consult, Test and Treat (Routine/Next Available) - Closed Specialty Diagnoses / Procedures Referred By Alex weldon Referred To Contact Rehab Therapies Diagnoses Benign paroxysmal positional vertigo Jean Munoz MD [address] [place] [phone] [facility] Rehab Outpatient [facility] [address] [place] [address] Referral ID Status Reason Start Date Expiration Date V isits Requested Visits Authorized [id number] Closed Specialty Services Required 12/16/2012 1 1 Question Answer Reason for Request: Vertigo Reason for Visit * Reason Onset Date Comments Referral Request 12/16/2012 Encounter Details Date Type Department Care Team (Late st Contact Info) Description 12/16/2012 Telephone [facility] [address] [place] [address] Jean Munoz MD [address] [place] [phone] Referral Request Social History Tobacco [...] Telephone Encounter - Jean Munoz MD - 12/16/2012 0938 EDT Order done * Telephone Encounter - Ra Pope - 12/16/2012 0908 EDT Service Requested:Physical Therapy/ Rehab Therapy Location Requested: [facility] Reason for Referral: Vertigo Has the patient seen their PCP for this issue? Yes-pt has been seeing Dr Bacon in [facility] and Dr Bacon referred her to Physical Therapy at the [facility] Rehab but due to pt's insurance referral needs to come from pt's PCP. documented in this encounter Plan of Treatment Upcoming Encounters Date Type Department Care Team (Late st Contact Info) Description 06/29/2024 14:15 EDT Office Visit [facility] Medicine [facility] [address] [place] [address] Jean Munoz MD [address] [place] [phone] Scheduled Referrals Name Type Priority Associated Diagnoses Orde r Schedule AMB CONSULT PHYSICAL THERAPY Outpatient Referral Routine Benign paroxysmal positional vertigo Ordered: 12/16/2012 documented as of this encounter Visit Diagnoses Diagnosis Benign paroxysmal positional vertigo- Primary Screening for osteoporosis- Primary Special screening for osteoporosis Primary narcolepsy without cataplexy Chronic pain syndrome Chronic low back pain Lumbago Chronic use of opiate for therapeutic purpose Pain medication agreement Encounter for long-term (current) use of other medications Screen for colon cancer Special screening for malignant neoplasms, colon documented in this encounter Care Teams Bobbin Winder Relationship Specialty Start Date End Date Jean Munoz MD [address] [place] [phone] PCP - General 12/31/08 Manny Rizzo MD [address] [place] [phone] 04/20/10 documented as of this encounter
--- OUTSIDE RECORDS SUMMARY | 2024-06-10 07:29 | XMS_ITS | Encounter Summary ---
Author Organization [facility] Address [address] [place] [address] Care Team Providers Care Learning Disabilities Specialist Name Role Phone Jean Munoz MD Primary Care Provider Manny Rizzo MD Unavailable Reason for Visit * Reason Comments Other Encounter Details Date Type Department Care Team (Late st Contact Info) Description 10/18/2012 [facility] [address] [place] [address] Jean Munoz MD [address] [place] [phone] Other Social History Tobacco Use Types [...] Dispensed Refills Start Date End Da te SINGULAIR 10 mg tablet TAKE ONE TABLET BY MOUTH AT BEDTIME 30 Each 1 10/18/2012 11/24/2012 documented in this encounter Miscellaneous Notes * Telephone Encounter - Yadira Negro, RN - 10/18/2012 1529 EST Refill request for: singulair 10mg tablet Last script: 07/16/12 #30 with 2 refills Last script: 09/29/12 Next OV: 11/24/12 documented in this encounter Plan of Treatment Upcoming Encounters Date Type Department Care Team (Late st Contact Info) Description 06/29/2024 14:15 EDT Office Visit [facility] [address] [place], [place] [phone] Jean Munoz MD [address] [place] [phone] documented as of this encounter Visit Diagnoses Not on filedocumented in this encounter Discontinued Medications Medication Sig Discontinue Reason Start Date End Da te SINGULAIR 10 mg tablet TAKE ONE TABLET BY MOUTH AT BEDTIME Reorder 07/16/2012 10/18/2012 documented as of this encounter Care Teams Learning Disabilities Specialist Relationship Specialty Start Date End Date Jean Munoz MD [address] [place] [phone] PCP - General 12/31/08 Manny Rizzo MD [address] [place] [phone] 04/20/10 documented as of this encounter
--- OUTSIDE RECORDS SUMMARY | 2024-06-10 07:29 | XMS_ITS | Encounter Summary ---
Author Organization [facility] Address [address] [place] [address] Care Team Providers Care Eyewear Consultant Name Role Phone Jean Munoz MD Primary Care Provider Manny Rizzo MD Unavailable Reason for Visit * Reason Onset Date Comments Medication Problem 11/24/2012 Encounter Details Date Type Department Care Team (Late st Contact Info) Description 11/24/2012 Telephone [facility] [address] [place], [place] [phone] Jean Munoz MD [address] [place] [phone] Medication Problem Social History Tobacco Use [...] for Nausea. 30 Tab 1 11/24/2012 03/02/2013 documented in this encounter Miscellaneous Notes * Telephone Encounter - Jean Munoz MD - 11/24/2012 1432 EDT escript done, please let them know * Telephone Encounter - Feli Preston - 11/24/2012 1315 EDT Patient calling stating she saw Dr. Munoz this morning and he was supposed to write a replacement prescription for promethazine with a new medication. Patient states her pharmacy did not have thison file. documented in this encounter Plan of Treatment Upcoming Encounters Date Type Department Care Team (Late st Contact Info) Description 06/29/2024 14:15 EDT Office Visit [address] [address] Jean Munoz MD [address] [place] [phone] documented as of this encounter Visit [...] colon documented in this encounter Care Teams Eyewear Consultant Relationship Specialty Start Date End Date Jean Munoz MD [address] [place] [phone] PCP - General 12/31/08 Manny Rizzo MD [address] [place] [phone] 04/20/10 documented as of this encounter
--- OUTSIDE RECORDS SUMMARY | 2024-06-10 07:29 | XMS_ITS | Encounter Summary ---
Author Organization [facility] Address [address] [place] [address] Care Team Providers Care Shoe Reconditioner Name Role Phone Jean Munoz MD Primary Care Provider Manny Rizzo MD Unavailable Reason for Visit * Reason Comments Back Pain f/u Knee Pain f/u Asthma f/u Gastroesophageal Reflux f/u Encounter Details Date Type Department Care Team (Late st Contact Info) Description 11/24/2012 11:00 EDT Office Visit [facility] [address] [place] [address] Jean Munoz MD [address] [place] [phone] Left knee pain (Primary Dx); Chronic back pain; Low back pain; Seasonal allergic rhinitis; Depression; Insomnia; Asthma; Gastroesophageal reflux disease; Restless legs syndrome Social History Tobacco Use [...] Sign Reading Time Taken Comments Blood Pressure 94/72 11/24/2012 1111 EDT Pulse 84 11/24/2012 1111 EDT Temperature 36 ??C (96.8 ??F) 11/24/2012 1111 EDT Respiratory Rate 20 11/24/2012 1111 EDT Oxygen Saturation - - Inhaled Oxygen Concentration - - Weight 90.7 kg (200 lb) 11/24/2012 1111 EDT Height - - Body Mass Index 34.33 10/26/2012 1041 EST documented in this encounter Functional Status Cognitive Status Response Date of Assessm ent Because of a physical, menta l, or emotional condition, do you have serious difficulty concentrating, remembering, or making decisions? (5 years old or older) Yes 04/05/2012 documented as of this encounter Ordered Prescriptions Prescription Sig Dispensed Refills Start Date End Da te hydrocodone-acetaminop hen (LORTAB) 5-500 mg tabletIndications:Left knee pain Take 1-2 Tabs by mouth every 6 hours as needed for Pain for 28 days. 112 Tab 0 01/19/2013 04/10/2013 hydrocodone-acetaminop hen (LORTAB) 5-500 mg tabletIndications:Left knee pain Take 1 Tab by mouth every 6 hours as needed for Pain for 28 days. 112 Tab 0 12/22/2012 02/08/2013 zolpidem (AMBIEN) 10 mg tabletIndications:Inso mnia Take 1 Tab by mouth at bedtime as needed for Sleep. 30 Each 2 11/24/2012 02/08/2013 tiotropium (SPIRIVA WITH HANDIHALER) 18 mcg inhalation capsuleIndications:Ast hma Inhale 1 Cap as directed daily. 3 Cap 0 11/24/2012 03/02/2013 montelukast (SINGULAIR) 10 mg tabletIndications:Asth ma Take 1 Tab by mouth daily. 90 Each 0 11/24/2012 03/02/2013 sertraline (ZOLOFT) 100 mg tabletIndications:Depr ession Take 2 Tabs by mouth daily. 180 Tab 0 11/24/2012 03/02/2013 ropinirole (REQUIP) 2 mg tabletIndications:Rest less legs syndrome Take 1 Tab by mouth at bedtime. 90 Each 0 11/24/2012 03/02/2013 omeprazole (PRILOSEC) 20 mg capsuleIndications:Ins omnia Take 2 Caps by mouth daily. 180 Cap 0 11/24/2012 01/11/2013 nortriptyline (PAMELOR) 75 mg capsuleIndications:Dep ression Take 1 Cap by mouth daily. 90 Each 0 11/24/2012 03/02/2013 mometasone (NASONEX) 50 mcg/actuation nasal sprayIndications:Seaso nal allergic rhinitis 2 Sprays by nasal route daily. 3 Inhaler 0 11/24/2012 03/02/2013 levalbuterol (XOPENEX HFA) 45 mcg/actuation inhalerIndications:Ast hma Inhale 1-2 Puffs as directed every 4 hours as needed for Wheezing. 3 Inhaler 0 11/24/2012 03/02/2013 ipratropium-albuterol (DUONEB) 0.5 mg-3 mg(2.5 mg base)/3 mL nebulizer solutionIndications:As thma Take 3 mL by nebulization every 6 hours as needed for Wheezing. 3 Box 0 11/24/2012 03/02/2013 fexofenadine (JUDITH) 180 mg tabletIndications:Seas onal allergic rhinitis Take 1 Tab by mouth daily. 90 Each 0 11/24/2012 03/02/2013 baclofen (LIORESAL) 10 mg tabletIndications:Low back pain Take 1 Tab by mouth 3 times daily as needed. 270 Tab 0 11/24/2012 03/02/2013 pregabalin (LYRICA) 150 mg capsuleIndications:Chr onic back pain Take 1 Cap by mouth 3 times daily. 270 Each 0 11/24/2012 03/02/2013 hydrocodone-acetaminop hen (LORTAB) 5-500 mg tabletIndications:Left knee pain Take 1 Tab by mouth every 6 hours as needed for Pain for 28 days. 112 Tab 0 11/24/2012 02/08/2013 documented in this encounter Progress Notes * Jean Munoz MD - 11/24/2012 1120 EDT Subjective: Patient ID: Liset Viera is an 51 y.o. female. Chief Complaint Patient presents with ??? Back Pain f/u ??? Knee Pain f/u ??? Asthma f/u ??? Gastroesophageal Reflux f/u HPI Here for F/U multiple issues Back pain unchanged Has seen Dr Holt, epidural pending Knee pain still a problem Injection did not help Still requiring narcotics Has F/U Dr Glynn but not until May Asthma better No smoking for 2 years GERD ?worse Now with nausea Onset 1 week ago Dry heaves fever intermittent +diarrhea 2 days Promethazine not helping Tried OTC Pepto Bismol Taking Prilosec Needs refills of meds Patient Active Problem List Diagnoses ??? Severe [...] Degeneration of lumbar or lumbosacral intervertebral disc Past Medical History Diagnosis Date ??? UTI [...] by mouth daily. 90 Each 0 ??? omeprazole (PRILOSEC) 20 mg capsule Take 2 Caps by mouth daily. 180 Cap 0 ??? ropinirole (REQUIP) 2 mg tablet [...] rarely ROS - See HPI Objective: BP 94/72 Pulse 84 Temp(Src) 36 ??C (96.8 ??F) (Tympanic) Resp 20 Wt 90.719 kg (200 lb) Physical Exam deferred Assessment: Plan: Liset was seen today for back pain, knee pain, asthma and gastroesophageal reflux. Diagnoses and associated orders for this visit: Left knee pain - hydrocodone-acetaminophen (LORTAB) 5-500 mg tablet; Take 1 Tab by mouth every 6 hours as needed for Pain for 28 days. - hydrocodone-acetaminophen (LORTAB) 5-500 mg tablet; Take 1 Tab by mouth every 6 hours as needed for Pain for 28 days. - hydrocodone-acetaminophen (LORTAB) 5-500 mg tablet; Take 1-2 Tabs [...] tablet; Take 2 Tabs by mouth daily. Insomnia - omeprazole (PRILOSEC) 20 mg capsule; Take 2 Caps by mouth daily. - zolpidem (AMBIEN) 10 mg tablet; Take 1 Tab by mouth at bedtime as needed for Sleep. Asthma - ipratropium-albuterol (DUONEB) 0.5 mg-3 mg(2.5 mg base)/3 mL nebulizer solution; Take 3 mL by nebulization every 6 hours as needed for Wheezing. - levalbuterol (XOPENEX HFA) 45 mcg/actuation inhaler; Inhale 1-2 Puffs as directed every 4 hours as needed for Wheezing. - montelukast (SINGULAIR) 10 mg tablet; Take 1 Tab by mouth daily. - tiotropium (SPIRIVA WITH HANDIHALER) 18 mcg inhalation capsule; Inhale 1 Cap as directed daily. Gastroesophageal reflux disease On PPI Suspect N/V due to acute GE Will try Zofran in place of promethazine Restless legs syndrome - ropinirole (REQUIP) 2 mg tablet; Take 1 Tab by mouth at bedtime. Patient Education Topic: as above Method: Verbal Taught to: Patient Barriers: None Outcomes: Verbalized understanding Return in 3 months (on 02/16/2013) for PE. documented in this encounter Plan of Treatment Upcoming Encounters Date Type Department Care Team (Late st Contact Info) Description 06/29/2024 14:15 EDT Office Visit [facility] [address] [place] [address] Jean Munoz MD [address] [place] [phone] documented as of this encounter Visit Diagnoses Diagnosis Left knee pain- Primary Pain in joint, lower leg Chronic back pain Backache, unspecified Low back pain Lumbago Seasonal allergic rhinitis Allergic rhinitis, cause unspecified Depression Depressive disorder, not elsewhere classified Insomnia Insomnia, unspecified Asthma Unspecified asthma Gastroesophageal reflux disease Esophageal reflux Restless legs syndrome Restless legs syndrome (RLS) [...] Discontinue Reason Start Date End Da te hydrocodone-acetamino phen (LORTAB) 5-500 mg tabletIndications:Lef t knee pain Take 1 Tab by mouth every 6 hours as needed for Pain for 28 days. Reorder 10/27/2012 11/24/2012 pregabalin (LYRICA) 150 mg capsuleIndications:Ch ronic back pain Take 1 Cap by mouth 3 times daily. Reorder 09/29/2012 11/24/2012 baclofen (LIORESAL) 10 mg tabletIndications:Low back pain Take 0.5-1 Tabs by mouth 3 times daily as needed. Reorder 12/09/2011 11/24/2012 fexofenadine (JUDITH) 180 mg tabletIndications:Sea el allergic rhinitis Take 1 Tab by mouth daily. Reorder 12/09/2011 11/24/2012 ipratropium-albuterol (DUO-NEB) 0.5 mg-3 mg(2.5 mg base)/3 mL nebulizer solution Take 3 mL by nebulization 4 times daily. Reorder 04/11/2012 11/24/2012 levalbuterol (XOPENEX HFA) 45 mcg/actuation inhaler Inhale 1-2 Puffs as directed every 4 hours as needed for Wheezing. Reorder 11/23/2011 11/24/2012 mometasone (NASONEX) 50 mcg/actuation nasal sprayIndications:Seas onal allergic rhinitis 2 Sprays by Nasal route daily. Reorder 12/09/2011 11/24/2012 nortriptyline (PAMELOR) 75 mg capsuleIndications:De pression Take 1 Cap by mouth daily. Reorder 12/09/2011 11/24/2012 omeprazole (PRILOSEC) 20 mg capsuleIndications:In somnia Take 1 Cap by mouth daily. Reorder 12/09/2011 11/24/2012 ropinirole (REQUIP) 2 mg tablet TAKE ONE TABLET BY MOUTH AT BEDTIME Reorder 11/13/2011 11/24/2012 sertraline (ZOLOFT) 100 mg tabletIndications:Dep ression Take 2 Tabs by mouth daily. Reorder 12/09/2011 11/24/2012 SINGULAIR 10 mg tablet TAKE ONE TABLET BY MOUTH AT BEDTIME Reorder 10/18/2012 11/24/2012 tiotropium (SPIRIVA WITH HANDIHALER) 18 mcg inhalation capsule Inhale 1 Cap as directed daily. Reorder 06/27/2012 11/24/2012 zolpidem (AMBIEN) 10 mg tabletIndications:Ins omnia Take 1 Tab by mouth at bedtime as needed for Sleep. Reorder 08/29/2012 11/24/2012 documented as of this encounter Care Teams Shoe Reconditioner Relationship Specialty Start Date End Date Jean Munoz MD [address] [place] [phone] PCP - General 12/31/08 Manny Rizzo MD [address] [place] [address] 04/20/10 documented as of this encounter
--- OUTSIDE RECORDS SUMMARY | 2024-06-10 07:29 | XMS_ITS | Encounter Summary ---
Author Organization [facility] Address [address] [place] [address] Care Team Providers Care Residential Care Officer Name Role Phone Jean Munoz MD Primary Care Provider Manny Rizzo MD Unavailable Reason for Visit * Reason Onset Date Comments Prior Auth, Medication 12/01/2012 omeprazol e 20mg twice a day Encounter Details Date Type Department Care Team (Late st Contact Info) Description 12/01/2012 Telephone [facility] [address] [place] [address] Jean Munoz MD [address] [place] [phone] Prior Auth, Medication (omeprazole 20mg twice a day) Social History Tobacco Use Types Packs/Day Years [...] Dispensed Refills Start Date End Da te omeprazole (PRILOSEC) 40 mg capsule Take 1 Cap by mouth daily. 30 Cap 1 12/01/2012 03/02/2013 documented in this encounter Miscellaneous Notes * Telephone Encounter - Ethan Gilliam MD - 12/01/2012 1710 EDT Signed. Will re-route to Dr Munoz * Telephone Encounter - Rukhsana Molina - 12/01/2012 1050 EDT Pt medicaid insurance needs a prior authorization for her omeprazole due to the BID dosing. [place] will not approve twice a day dosing. Can do 20 mg once a day or 40 mg once a day? Pended prescription for 40 mg once a day (20mg twice a day is what prescription was written for). Please sign if appropriate or advise otherwise. documented in this encounter Plan of Treatment Upcoming Encounters Date Type Department Care Team (Late st Contact Info) Description 06/29/2024 14:15 EDT Office Visit [facility] [address] [place] [address] Jean Munoz MD [address] [place] [phone] documented as of this encounter Visit Diagnoses Not on filedocumented in this encounter Care Teams Residential Care Officer Relationship Specialty Start Date End Date Jean Munoz MD [address] [place] [phone] PCP - General 12/31/08 Manny Rizzo MD [address] [place] [phone] 04/20/10 documented as of this encounter
--- OUTSIDE RECORDS SUMMARY | 2024-06-10 07:29 | XMS_ITS | Encounter Summary ---
Author Organization [facility] Address [address] [place] [address] Care Team Providers Care Budget Officer Name Role Phone Jean Munoz MD Primary Care Provider Manny Rizzo MD Unavailable Reason for Visit * Reason Onset Date Comments Medications Refill 01/16/2013 Encounter Details Date Type Department Care Team (Late st Contact Info) Description 01/16/2013 Refill [facility] - [address] [phone] Tiana Bacon [address] [place] [phone] Medications Refill Social History Tobacco Use [...] the afternoon for narcolepsy 30 Tab 0 01/18/2013 02/01/2013 methylphenidate (RITALIN SR; METADATE ER; METHYLIN ER) 20 mg SR tablet Brand only. Take 2 tabs in the morning for narcolepsy. 60 Tab 0 01/18/2013 02/01/2013 documented in this encounter Miscellaneous Notes * Telephone Encounter - Corrina Ac RN - 01/16/2013 1522 EDT Let pt know ( Ritalin ) prescriptions ready for bead picker at [facility]. * Telephone Encounter - Yanet Zacarias - 01/16/2013 1204 EDT methylphenidate (RITALIN SR; METADATE ER; METHYLIN ER) 20 mg SR tablet , Brand only. Take 2 tabs inthe morning for narcolepsy. methylphenidate (RITALIN;METHYLIN) 10 mg tablet ,Take one tab in the afternoon for narcolepsy Pt will pick it up, would like to bead picker on Wednesday if possible. Please call pt with any questions/when medication is ready to be picked up. documented in this encounter Plan of Treatment Upcoming Encounters Date Type Department Care Team (Late st Contact Info) Description 06/29/2024 14:15 EDT Office Visit [facility] [address] [place], [place] [phone] Jean Munoz MD [address] [place] [phone] documented as of this encounter Visit Diagnoses Not on filedocumented in this encounter Discontinued Medications Medication Sig Discontinue Reason Start Date End Da te methylphenidate (RITALIN SR; METADATE ER; METHYLIN ER) 20 mg SR tablet Brand only. Take 2 tabs in the morning for narcolepsy. Reorder 12/21/2012 01/16/2013 methylphenidate (RITALIN;METHYLIN) 10 mg tablet Take one tab in the afternoon for narcolepsy Reorder 12/21/2012 01/16/2013 documented as of this encounter Care Teams Budget Officer Relationship Specialty Start Date End Date Jean Munoz MD [address] [place] [phone] PCP - General 12/31/08 Manny Rizzo MD [address] [place] [phone] 04/20/10 documented as of this encounter
--- OUTSIDE RECORDS SUMMARY | 2024-06-10 07:29 | XMS_ITS | Encounter Summary ---
Author Organization [facility] Address [address] [place] [address] Care Team Providers Care Lead Java Programmer Name Role Phone Jean Munoz MD Primary Care Provider Manny Rizzo MD Unavailable Reason for Visit * Reason Onset Date Comments Medications Refill 10/19/2012 DOXYCYCLINE H YCLATE 100 MG TABS Encounter Details Date Type Department Care Team (Late st Contact Info) Description 10/19/2012 Refill [facility] Ophthalmology - [address] [phone] Giovanni Rodriguez MD [address] [facility] [address] [place] [phone] Medications Refill (DOXYCYCLINE HYCLATE 100 MG TABS) Social History Tobacco Use Types Packs/Day Years [...] mouth daily. 30 Tab 11 10/19/2012 02/26/2013 documented in this encounter Miscellaneous Notes * Telephone Encounter - Juliette Valdez RN - 10/25/2012 1422 EST I called pt to let her know that Dr. Feng has authorized more refills of her doxycycline rx and to call her pharmacy prior to picking them up. She thanked me for my help and has no further questions at this time. * Telephone Encounter - Isaiah Montenegro - 10/25/2012 1220 EST Patient has been out of the doxy for a week. * Telephone Encounter - Juliette Valdez RN - 10/19/2012 0853 EST Doctor: Jung (GANESH original prescriber, but it appears JSABI is following this pt now ?) Requested Medication(s): Doxycycline 100mg Last appointment date: 10/17/12 Last appointment note regarding medication: The radioisotope technician note from this [facility] appt states, 'Uses Doxycycline Ipo Qday'. Next appointment date: Due for f/u in 6-9 mos with [facility] documented in this encounter Plan of Treatment Upcoming Encounters Date Type Department Care Team (Late st Contact Info) Description 06/29/2024 14:15 EDT Office Visit [facility] [address] [place] [address] Jean Munoz MD [address] [place] [phone] documented as of this encounter Visit Diagnoses Not on filedocumented in this encounter Care Teams Lead Java Programmer Relationship Specialty Start Date End Date Jean Munoz MD [address] [place] [phone] PCP - General 12/31/08 Manny Rizzo MD [address] [place] [phone] 04/20/10 documented as of this encounter
--- OUTSIDE RECORDS SUMMARY | 2024-06-10 07:29 | XMS_ITS | Encounter Summary ---
Author Organization [facility] Address [address] [place] [address] Care Team Providers Care Internal Communications Manager Name Role Phone Jean Munoz MD Primary Care Provider Manny Rizzo MD Unavailable Reason for Visit * Reason Comments Back Pain lower Encounter Details Date Type Department Care Team (Latest Contact Info) Description 10/14/2012 14:00 EST Office Visit [facility] Interventional Pain [address] [place], [place] [phone] Ho Holt, DO [address] [facility] [address] [place], [place] [phone] Chronic back pain (Primary Dx); Lumbar radicular syndrome; Degeneration of lumbar or lumbosacral intervertebral disc Social History Tobacco Use Types Packs/Day Years [...] Sign Reading Time Taken Comments Blood Pressure 126/65 10/14/2012 1402 EST Pulse 69 10/14/2012 1402 EST Temperature 36.1 ??C (97 ??F) 10/14/2012 1402 EST Respiratory Rate 16 10/14/2012 1402 EST Oxygen Saturation - - Inhaled Oxygen Concentration - - Weight 90.7 kg (200 lb) 10/14/2012 1402 EST Height 162.6 cm (5' 4) 10/14/2012 1402 EST Body Mass Index 34.33 10/14/2012 1402 EST documented in this encounter Functional Status Cognitive Status Response Date of Assessm ent Because of a physical, menta l, or emotional condition, do you have serious difficulty concentrating, remembering, or making decisions? (5 years old or older) Yes 04/05/2012 documented as of this encounter Progress Notes * Ho Holt - 10/14/2012 1433 EST OUTPATIENT PROGRESS NOTE Patient: Liset Viera : 1960 DOS: 10/14/2012 INTERVAL HISTORY: Liset Viera presents for follow up. She has Lbp across lumbosacral area with radiation down the legs (left>right). She had an L5-S1 LESI in 2009 with good relief for about 1 month. She had facet injections in 2010 which helped for about 1 month. Otherwise, the current pain symptoms are consistent with her baseline and there have been no recent changes in the pain character, quality, or distribution, and no changes in strength, sensation, or bladder control. EXAMINATION Blood pressure 126/65, pulse 69, temperature 36.1 ??C (97 ??F), temperature source Tympanic, resp. rate 16, height 162.6 cm (64), weight 90.719 kg (200 lb). General:awake, alert, cooperative, no apparent distress EYES: PERRLA Skin: no rashes, bruises or petechiae noted Musculoskeletal: Gait: Mildly antalgic and Joints: no redness, warmth, or swelling of the joints Lumbar Spine: paraspinal tenderness at the bilateral lower levels and ROM flexion decreased and extension decreased DIAGNOSIS 1. Chronic back pain 2. Lumbar radicular syndrome 3. Degeneration of lumbar or lumbosacral intervertebral disc ASSESSMENT & PLAN 51 yr old woman with multifactorial lumbosacral pain and radiculopar pain in the L4 +/- L5 distribution (left>right). She will be scheduled for an epidural. If no improvement then scan. Ho Holt DO 10/14/2012 documented in this encounter Plan of Treatment Upcoming Encounters Date Type Department Care Team (Late st Contact Info) Description 06/29/2024 14:15 EDT Office Visit [facility] [address] [place], [place] [phone] Jean Munoz MD [address] [place] [address] documented as of this encounter Visit Diagnoses Diagnosis Chronic back pain- Primary Backache, unspecified Lumbar radicular syndrome Thoracic or lumbosacral neuritis or radiculitis, unspecified [...] documented in this encounter Care Teams Internal Communications Manager Relationship Specialty Start Date End Date Jean Munoz MD [address] [place] [phone] PCP - General 12/31/08 Manny Rizzo MD [address] [place] [address] 04/20/10 documented as of this encounter
[2024-06-10 07:30] LABS: BE (Venous) -1 mmol/L (-2-3); HCO3 (Venous) 23 mmol/L (23-28); O2 Sat (Venous) 97 %; TCO2 (Venous) 21 mmol/L (24-29); pCO2 (Venous) 34 mmHg (41-51); pH (Venous) 7.44 (7.31-7.41); pO2 (Venous) 72 mmHg
--- OUTSIDE RECORDS SUMMARY | 2024-06-10 07:30 | XMS_ITS | Encounter Summary ---
Author Organization [facility] Address [address] [place] [address] Care Team Providers Care Economic Consultant Name Role Phone Jean Munoz MD Primary Care Provider Manny Rizzo MD Unavailable Reason for Visit * Reason Onset Date Comments Medications Refill 08/29/2012 Encounter Details Date Type Department Care Team (Late st Contact Info) Description 08/29/2012 Refill [facility] Sleep Program - [address] [phone] Tiana Bacon [address] [place] [phone] Medications Refill Social History Tobacco Use [...] the afternoon for narcolepsy 30 Tab 0 09/01/2012 09/27/2012 methylphenidate (RITALIN SR; METADATE ER; METHYLIN ER) 20 mg SR tablet Brand only. Take 2 tabs in the morning for narcolepsy. 60 Tab 0 09/01/2012 09/27/2012 documented in this encounter Miscellaneous Notes * Telephone Encounter - Corrina Ac RN - 08/29/2012 1350 EST Let pt know her ritalin prescriptions are ready for cone picker at the [facility]. * Telephone Encounter - Duy Booth - 08/29/2012 1322 EST Calling to request refills of Ritalin and Ritalin SR (Brand only). Please call her when she can pick these up on Wednesday [phone]. documented in this encounter Plan of Treatment Upcoming Encounters Date Type Department Care Team (Late st Contact Info) Description 06/29/2024 14:15 EDT Office Visit [facility] [address] [place], [place] [phone] Jean Munoz MD [address] [place] [phone] documented as of this encounter Visit Diagnoses Not on filedocumented in this encounter Discontinued Medications Medication Sig Discontinue Reason Start Date End Da te methylphenidate (RITALIN SR; METADATE ER; METHYLIN ER) 20 mg SR tablet Brand only. Take 2 tabs in the morning for narcolepsy. Reorder 08/03/2012 08/29/2012 methylphenidate (RITALIN;METHYLIN) 10 mg tablet Take one tab in the afternoon for narcolepsy Reorder 08/03/2012 08/29/2012 documented as of this encounter Care Teams Economic Consultant Relationship Specialty Start Date End Date Jean Munoz MD [address] [place] [phone] PCP - General 12/31/08 Manny Rizzo MD [address] [place] [phone] 04/20/10 documented as of this encounter
--- OUTSIDE RECORDS SUMMARY | 2024-06-10 07:30 | XMS_ITS | Encounter Summary ---
Author Organization [facility] Address [address] [place] [address] Care Team Providers Care High Pressure Firer Name Role Phone Jean Munoz MD Primary Care Provider Manny Rizzo MD Unavailable Reason for Visit * Reason Onset Date Comments Medications Refill 07/05/2012 Encounter Details Date Type Department Care Team (Late st Contact Info) Description 07/05/[address] [facility] Sleep Program - [address] [phone] Tiana Bacon [address] [place] [phone] Medications Refill Social History Tobacco Use [...] the afternoon for narcolepsy 30 Tab 0 07/05/2012 08/01/2012 methylphenidate (RITALIN SR; METADATE ER; METHYLIN ER) 20 mg SR tablet Brand only. Take 2 tabs in the morning for narcolepsy. 60 Tab 0 07/05/2012 08/01/2012 documented in this encounter Miscellaneous Notes * Telephone Encounter - Corrina Ac RN - 07/06/2012 0906 EDT Let pt to let know ritalin prescriptions (2) ready for chart picker at the Sleep Center. * Telephone Encounter - Duy Booth - 07/05/2012 1351 EDT Calling to request a refill of Ritalin SR 20mgs (brand only) and Ritalin 10mgs. Please call when ready for her to chart picker. documented in this encounter Plan of Treatment Upcoming Encounters Date Type Department Care Team (Late st Contact Info) Description 06/29/2024 14:15 EDT Office Visit [facility] [address] [place], [place] [phone] Jean Munoz MD [address] [place] [phone] documented as of this encounter Visit Diagnoses Not on filedocumented in this encounter Discontinued Medications Medication Sig Discontinue Reason Start Date End Da te methylphenidate (RITALIN SR; METADATE ER; METHYLIN ER) 20 mg SR tablet Brand only. Take 2 tabs in the morning for narcolepsy. Reorder 06/08/2012 07/05/2012 methylphenidate (RITALIN;METHYLIN) 10 mg tablet Take one tab in the afternoon for narcolepsy Reorder 06/08/2012 07/05/2012 documented as of this encounter Care Teams High Pressure Firer Relationship Specialty Start Date End Date Jean Munoz MD [address] [place] [phone] PCP - General 12/31/08 Manny Rizzo MD [address] [place] [phone] 04/20/10 documented as of this encounter
--- OUTSIDE RECORDS SUMMARY | 2024-06-10 07:30 | XMS_ITS | Encounter Summary ---
Author Organization [facility] Address [address] [place] [address] Care Team Providers Care Operator Electronic Warfare Name Role Phone Jean Munoz MD Primary Care Provider Manny Rizzo MD Unavailable Reason for Visit * Reason Onset Date Comments Medications Refill 07/04/2012 REQUEST FOR R ESTASIS REFILL Encounter Details Date Type Department Care Team (Late st Contact Info) Description 07/04/2012 Refill [facility] Ophthalmology - [address] [phone] Giovanni Rodriguez MD [address] [facility], [address] [place] [address] Medications Refill (REQUEST FOR RESTASIS REFILL) Social History Tobacco Use Types Packs/Day Years [...] Dispensed Refills Start Date End Da te cyclosporine (RESTASIS) 0.05 % ophthalmic emulsion Place 1 Drop into both eyes 4 times daily. 2 Tray 11 07/05/2012 10/24/2013 documented in this encounter Miscellaneous Notes * Telephone Encounter - Juliette Valdez RN - 07/05/2012 0826 EDT Doctor: Michael Requested Medication(s): Restasis Last appointment date: 06/02/12 (saw pt as an ERV for bloody tears and pt has been referred to Dr. Rivera for evaluation of this) Last appointment note regarding medication: No mention of restasis in 06/02/12 appt note, but was mentioned in 01/14/12 appt note 'In addition, she is on Restasis 4 times a day' Next appointment date: No scheduled appt as f/u was noted to be 'PRN' * Telephone Encounter - Kait Hawley - 07/04/2012 1659 EDT REQUEST FOR RESTASIS REFILL documented in this encounter Plan of Treatment Upcoming Encounters Date Type Department Care Team (Late st Contact Info) Description 06/29/2024 14:15 EDT Office Visit [facility] [address] [place] [address] Jean Munoz MD [address] [place] [phone] documented as of this encounter Visit Diagnoses Not on filedocumented in this encounter Discontinued Medications Medication Sig Discontinue Reason Start Date End Da te CYCLOSPORINE (RESTASIS OPHT) Apply 1 Drop to eye 2 times daily. Reorder 07/05/2012 documented as of this encounter Care Teams Operator Electronic Warfare Relationship Specialty Start Date End Date Jean Munoz MD [address] [place] [phone] PCP - General 12/31/08 Manny Rizzo MD [address] [place] [phone] 04/20/10 documented as of this encounter
--- OUTSIDE RECORDS SUMMARY | 2024-06-10 07:30 | XMS_ITS | Encounter Summary ---
Author Organization [facility] Address [address] [place] [address] Care Team Providers Care Regulator Inspector Name Role Phone Jean Munoz MD Primary Care Provider Manny Rizzo MD Unavailable Encounter Details Date Type Department Care Team (Late st Contact Info) Description 07/01/2012 Results Only Imaging [facility] - [address] [address] Liu Tilley MD [address] [place] [phone] Social History Tobacco Use Types Packs/Day [...] Office Visit [facility] [address] [place] [address] Jean Munoz MD [address] [place] [phone] documented as of this encounter Procedures Procedure Name Priority Date/Time Associated Diagnosis Comments ANKLE 2 VIEWS 07/04/2012 8:45 EDT documented in this encounter Results * ANKLE 2 VIEWS (07/04/2012 8:45 EDT) Anatomical Region Laterality Modality Other 07/04/2012 8:45 EDT 07/04/2012 10:11 EDT Narrative 07/04/2012 10:11 EDT Right ankle July 04, 2012 History: Retained hardware Comparison June 21, 2012 An AP fluoroscopic image demonstrates interval removal of sideplate and screws from the distal fibula and the plate which was in the distal tibia. No residual metallic foreign body is identified, though the images under penetrated. Procedure Note 07/04/2012 Right ankle July 04, 2012 History: Retained hardware Comparison June 21, 2012 An AP fluoroscopic image demonstrates interval removal of sideplate and screws from the distal fibula and the plate which was in the distal tibia. No residual metallic foreign body is identified, though the images under penetrated. Liu Tilley MD IMG DIAGNOSTIC IM AGING ORDERABLES documented in this encounter Visit Diagnoses Not on filedocumented in this encounter Care Teams Regulator Inspector Relationship Specialty Start Date End Date Jean Munoz MD [address] [place] [phone] PCP - General 12/31/08 Manny Rizzo MD [address] [place] [phone] 04/20/10 documented as of this encounter
--- OUTSIDE RECORDS SUMMARY | 2024-06-10 07:30 | XMS_ITS | Encounter Summary ---
Author Organization [facility] Address [address] [place] [address] Care Team Providers Care Orthotic Aide Name Role Phone Jean Munoz MD Primary Care Provider Manny Rizzo MD Unavailable Encounter Details Date Type Department Care Team (Late st Contact Info) Description 06/15/2012 12:33 EDT - 06/15/2012 13:32 EDT Hospital Encounter [facility] Pulmonary Function Lab - [facility] [address] [place], [place] [phone] Unknown, Provider, Cathy Jacobo MD PhD [address] [facility], [address] [place] [address] Pneumonia; Abnormal CXR; Hypoxia; Abnormal PFTs Discharge Disposition: Home or Self Care Social [...] daily as needed for Constipation. 09/24/2010 ADVAIR DISKUS 500-50 mcg/dose diskus inhaler INHALE ONE PUFF BY MOUTH TWICE A DAY DIRECTED 180 Each 3 11/13/2011 09/28/2012 baclofen (LIORESAL) 10 mg tabletIndications:Low back pain Take 0.5-1 Tabs by mouth 3 times daily as needed. 90 Tab 4 12/09/2011 11/24/2012 CYCLOSPORINE (RESTASIS OPHT) Apply 1 Drop to eye 2 times daily. 07/05/2012 doxycycline (VIBRA-TABS) 100 mg tablet Take 1 Tab by mouth daily. 30 Tab 11 10/13/2011 10/13/2012 fexofenadine (JUDITH) 180 mg tabletIndications:Seaso nal allergic rhinitis Take 1 Tab by mouth daily. 90 Each 4 12/09/2011 11/24/2012 hydrocodone-acetaminoph en (LORTAB;VICODIN) 5-500 mg tabletIndications:Chron ic knee pain Take 1 Tab by mouth every 6 hours as needed for Pain. 112 Tab 0 05/26/2012 06/24/2012 hydroxypropyl methylcellulose (ISOPTO TEARS) 0.5 % ophthalmic [...] the morning for narcolepsy. 60 Tab 0 06/08/2012 07/05/2012 methylphenidate (RITALIN;METHYLIN) 10 mg tablet Take one tab in the afternoon for narcolepsy 30 Tab 0 06/08/2012 07/05/2012 mometasone (NASONEX) 50 mcg/actuation nasal sprayIndications:Season al allergic rhinitis 2 Sprays by Nasal route daily. 3 Inhaler 4 12/09/2011 11/24/2012 montelukast (SINGULAIR) 10 mg tablet Take 1 Tab by mouth at bedtime. 30 Tab 2 03/31/2012 07/16/2012 nortriptyline (PAMELOR) 75 mg capsuleIndications:Depr ession Take 1 Cap by mouth daily. 30 Each 4 12/09/2011 11/24/2012 omeprazole (PRILOSEC) 20 mg capsuleIndications:Inso mnia Take 1 Cap by mouth daily. 90 Cap 4 12/09/2011 11/24/2012 pregabalin (LYRICA) 150 mg capsuleIndications:Floor Covering Layer majo knee pain Take 1 Cap by mouth 2 times daily. 60 Each 5 05/26/2012 06/24/2012 promethazine (PHENERGAN) 25 mg tablet Take 1 Tab by mouth every 6 hours as needed for Nausea. 30 Tab 1 05/10/2012 01/11/2013 ropinirole (REQUIP) 2 mg tablet TAKE ONE TABLET BY MOUTH AT BEDTIME 90 Each 3 11/13/2011 11/24/2012 sertraline (ZOLOFT) 100 mg tabletIndications:Depre ssion Take 2 Tabs by mouth daily. 180 Tab 5 12/09/2011 11/24/2012 sumatriptan (IMITREX) 50 mg tablet TAKE 1 TABLET BY MOUTH ONCE NEEDED FOR MIGRAINE FOR 1 DOSE 9 Each 2 05/08/2012 09/16/2012 tiotropium (SPIRIVA WITH HANDIHALER) 18 mcg inhalation capsule Inhale 1 Cap as directed daily. 1 Cap 11 06/27/2012 11/24/2012 zolpidem (AMBIEN) 10 mg tabletIndications:Insom yesi Take 1 Tab by mouth at bedtime as needed for Sleep. 30 Each 2 05/26/2012 08/29/2012 documented as of this encounter Discharge Disposition Disposition Code Departure Means Destination Home or Self Longterm documented in this encounter Progress Notes * Susan Viera RT - 06/15/2012 1316 EDT Testing was performed and recorded in [facility]. See complete report in scanned documents. documented in this encounter Procedure Notes * HEAD OF HUMAN RESOURCES, ESTEPHANIA 2 - 06/23/2012 0822 EDTAssociated Order(s): PULMONARY FUNCTION LAB REPORT - SCANNED documented in this encounter Plan of Treatment Upcoming Encounters Date Type Department Care Team (Late st Contact Info) Description 06/29/2024 14:15 EDT Office Visit [facility] [address] [place] [address] Jean Munoz MD [address] [place] [phone] documented as of this encounter Procedures Procedure Name Priority Date/Time Associated Diagnosis Comments PULMONARY FUNCTION REPORT - SCANNED 06/23/2012 8:22 EDT documented in this encounter Results * PULMONARY FUNCTION LAB REPORT - SCANNED (06/23/2012 8:22 EDT) 06/23/2012 8:22 EDT Narrative 06/23/2012 8:40 EDT Procedure Note HEAD OF HUMAN RESOURCES, ESTEPHANIA 2 - 06/23/2012 8:22 EDT Scan 2 Cushion Builder PROCEDURE/MINOR GURU GICAL ORDERABLES documented in this encounter Visit Diagnoses Diagnosis Pneumonia Pneumonia, organism unspecified Abnormal CXR Other nonspecific abnormal finding of lung field Hypoxia Hypoxemia Abnormal PFTs Nonspecific abnormal results of pulmonary system function study Screening for osteoporosis- Primary Special screening for osteoporosis Primary narcolepsy without cataplexy Chronic pain syndrome Chronic low back pain Lumbago Chronic use of opiate for therapeutic purpose Pain medication agreement Encounter for long-term (current) use of other medications Screen for colon cancer Special screening for malignant neoplasms, colon documented in this encounter Care Teams Orthotic Aide Relationship Specialty Start Date End Date Jean Munoz MD [address] [place] [phone] PCP - General 12/31/08 Manny Rizzo MD [address] [place] [phone] 04/20/10 documented as of this encounter
--- OUTSIDE RECORDS SUMMARY | 2024-06-10 07:30 | XMS_ITS | Encounter Summary ---
Author Organization [facility] Address [address] [place] [address] Care Team Providers Care Contact Printer Dry Film Name Role Phone Jean Munoz MD Primary Care Provider Manny Rizzo MD Unavailable Reason for Visit * Reason Comments Medication Management Pre-op Exam Encounter Details Date Type Department Care Team (Late st Contact Info) Description 06/24/2012 14:00 EDT Office Visit [facility] Medicine [facility] [address] [place], [place] [phone] Jean Munoz MD [address] [place] [address] Ankle fracture, right (Primary Dx); Preop general physical exam; Chronic knee pain; Need for influenza vaccination Social History Tobacco [...] Sign Reading Time Taken Comments Blood Pressure 128/80 06/24/2012 1351 EDT Pulse 60 06/24/2012 1351 EDT Temperature 36.3 ??C (97.3 ??F) 06/24/2012 1351 EDT Respiratory Rate - - Oxygen Saturation - - Inhaled Oxygen Concentration - - Weight 90.7 kg (200 lb) 06/24/2012 1351 EDT Height 162.6 cm (5' 4) 06/24/2012 1351 EDT Body Mass Index 34.33 06/24/2012 1351 EDT documented in this encounter Functional Status Cognitive Status Response Date of Assessm ent Because of a physical, menta l, or emotional condition, do you have serious difficulty concentrating, remembering, or making decisions? (5 years old or older) Yes 04/05/2012 documented as of this encounter Ordered Prescriptions Prescription Sig Dispensed Refills Start Date End Da te pregabalin (LYRICA) 150 mg capsuleIndications:Chronic knee pain Take 1 Cap by mouth 3 times daily. 90 Each 1 06/24/2012 08/29/2012 hydrocodone-acetaminophen (LORTAB;VICODIN) 5-500 mg tabletIndications:Chronic knee pain Take 1 Tab by mouth every 6 hours as needed for Pain. 112 Tab 0 06/24/2012 07/04/2012 documented in this encounter Progress Notes * Jean Munoz MD - 06/24/2012 1423 EDT Preoperative H&P Date of Service: 06/24/2012 Chief Complaint: Chief Complaint Patient presents with ??? Medication Management ??? Pre-op Exam Planned Procedure: Right ankle hardware removal Surgeon: Dr Tilley Planned Procedure Date: 07/04/12 Problem List Available or Initiated: yes HISTORY OF PRESENT ILLNESS: Liset Viera is a 51 y.o., female, right ankle injury 03/30/10, s/p ORIF at [facility], still with ankle pain, 02/20, +stiffness, intermittent swelling, decr ROM Prior h/o of anesthetic complications no Prior h/o bleeding problems no Prior h/o DVT/PE no Family history of anesthetic complications, bleeding problems or DVT/PE no. Cardiovascular or pulmonary risk factors: asthma or COPD Active Problem List Patient Active Problem List Diagnoses ??? Severe major depression without psychotic features ??? GERD (gastroesophageal reflux disease) ??? Chronic back pain ??? Obesity ??? Cervicalgia ??? Impaired glucose tolerance ??? Migraine ??? Peptic ulcer disease ??? Asthma ??? Restless leg syndrome ??? Insomnia ??? Narcolepsy ??? Hip pain ??? Chronic knee pain ??? Tobacco abuse ??? Degeneration of cervical intervertebral disc ??? Anxiety ??? Routine health maintenance ??? Ankle fracture, right ??? Fatty liver ??? Leg edema ??? Chronic pain ??? Arthritis ??? Cervical spondylosis ??? Abscess of face ??? Vitreous syneresis ??? Diplopia ??? Blepharitis of both eyes ??? Senile nuclear sclerosis ??? Tear film insufficiency, unspecified ??? Seasonal allergic rhinitis ??? Lumbar radicular pain ??? Hot flashes ??? Irritable bowel syndrome (IBS) ??? Rosacea ??? Prepatellar bursitis of left knee ??? Left knee pain ??? Atypical pneumonia ??? Narcolepsy without cataplexy ??? Prediabetes ??? Varix PMH PSH Past Medical History Diagnosis Date [...] 04/05/2012 ??? Chronic fatigue ??? Wears glasses Past Surgical History Procedure Date ??? Salpingectomy 1982 ectopic ??? Hysterectomy, vaginal menorrhagia ??? Shoulder arthroscopy 10/15 left, with acromioplasty ??? Gastric fundoplication 03/02/07 Aspen ??? Cervical spine surgery 12/31/08 discectomy, fusion C4-7 Dr Dewitt ??? Colonoscopy 07/29/09 repeat ??? Ankle fracture [facility]01[facility] ??? Cyst incision and drainage 09/17/10 left cheek ??? Fine needle aspiration 09/19/10 left cheek Social History Family history History Substance Use Topics ??? Smoking status: [...] lung and bone ??? Cataract Maternal Grandfather Medications Current Outpatient Prescriptions Medication Sig Dispense Refill ??? methylphenidate (RITALIN SR; METADATE ER; METHYLIN ER) 20 mg SR tablet Brand only. Take 2 tabs in the morning for narcolepsy. 60 Tab 0 ??? methylphenidate (RITALIN;METHYLIN) 10 mg tablet Take one tab in the afternoon for narcolepsy 30Tab 0 ??? hydrocodone-acetaminophen (LORTAB;VICODIN) 5-500 mg tablet Take 1 Tab by mouth every 6 hours asneeded for Pain. 112 Tab 0 ??? zolpidem (AMBIEN) 10 mg tablet Take 1 Tab by mouth at bedtime as needed for Sleep. 30 Each 2 ??? pregabalin (LYRICA) 150 mg capsule Take 1 Cap by mouth 2 times daily. 60 Each 5 ??? promethazine (PHENERGAN) 25 mg tablet Take 1 Tab by mouth every 6 hours as needed for Nausea. 30 Tab 1 ??? sumatriptan (IMITREX) 50 mg tablet TAKE 1 TABLET BY MOUTH ONCE NEEDED FOR MIGRAINE FOR 1 DOSE 9 Each 2 ??? ipratropium-albuterol (DUO-NEB) 0.5 mg-3 mg(2.5 mg base)/3 mL nebulizer solution Take 3 mL by nebulization 4 times daily. 2 Box 0 ??? montelukast (SINGULAIR) 10 mg tablet Take 1 Tab by mouth at bedtime. 30 Tab 2 ??? baclofen (LIORESAL) 10 mg tablet Take [...] MOUTH AT BEDTIME 90 Each 3 ??? ADVAIR DISKUS 500-50 mcg/dose diskus inhaler INHALE ONE PUFF BY MOUTH TWICE A DAY DIRECTED 180 Each 3 ??? doxycycline (VIBRA-TABS) 100 mg tablet Take 1 Tab by mouth daily. 30 Tab 11 ??? CYCLOSPORINE (RESTASIS OPHT) Apply 1 Drop to eye 2 times daily. ??? hydroxypropyl methylcellulose (ISOPTO TEARS) 0.5 % ophthalmic solution Place 1 Drop into both eyes 5 times daily. ??? docusate sodium (COLACE) 100 mg capsule Take 1 Cap by mouth 2 times daily as needed for Constipation. Allergies Allergies Allergen Reactions ??? Toradol (Ketorolac Tromethamine) Hives ??? Motrin (Ibuprofen) Itching Review of systems Negative Positive Details Constitutional + Always tired Cardiovascular X Respiratory + Has had SOB due to asthma, recent PNA, ?COPD but improved, no O2 requirement Gastrointestinal X INTERNAL AUDIT DIRECTOR X Musculoskeletal + Right ankle, left knee pain Neurological X Psychiatric + Depression ?worse Hematological/Lymphatic X Endocrine X Eyes X Ears,nose, mouth,throat, X Integumentary X Allergic/Immunologic X PHYSICAL EXAMINATION: BP 128/80 Pulse 60 Temp(Src) 36.3 ??C (97.3 ??F) (Tympanic) Ht 162.6 cm (64) Wt 90.719 kg (200 lb) BMI 34.33 kg/m2, Body mass index is 34.33 kg/(m^2). Organ system Negative Positive Not examined Details Constitution/General x EENT & Mouth x Neck/Thyroid x Skins,nodes, glands x Respiratory x Heart x Peripheral Vascular x Breasts and Axillae x Abdomen x Scrotum/testes x Pelvic x Rectal x Musculoskeletal x Neurologic x EK04/05/12 reviewed CXR 04/05/[address] 06/15/12 reviewed, Pulmonary F/U pending IMPRESSION Right ankle hardware removal, appears low risk as pulmonary symptoms have improved Persistent left knee pain, etiology uncertain, requiring chronic narcotics, F/U pending PLAN: F/U pulmonary Refill Vicodin Increase LYrica to tid recheck 4 weeks Jean Munoz MD 06/24/2012 14:23 documented in this encounter Plan of Treatment Upcoming Encounters Date Type Department Care Team (Late st Contact Info) Description 06/29/2024 14:15 EDT Office Visit [facility] [address] [place] [address] Jean Munoz MD [address] [place] [address] documented as of this encounter Visit Diagnoses Diagnosis Ankle fracture, right- Primary Unspecified closed fracture of ankle Preop general physical exam Other specified pre-operative examination Chronic knee pain Pain in joint, lower leg Need for influenza vaccination Need for prophylactic [...] Discontinue Reason Start Date End Da te hydrocodone-acetaminophe n (LORTAB;VICODIN) 5-500 mg tabletIndications:Chroni c knee pain Take 1 Tab by mouth every 6 hours as needed for Pain. Reorder 05/26/2012 06/24/2012 pregabalin (LYRICA) 150 mg capsuleIndications:Chron ic knee pain Take 1 Cap by mouth 2 times daily. Reorder 05/26/2012 06/24/2012 documented as of this encounter Orders Immunization/Injection Count Last Ordered Date First Ordered Date INFLUENZA VACCINE =>3YO SPLI T PRESERVATIVE FREE IM 1 06/24/2012 documented in this encounter Care Teams Contact Printer Dry Film Relationship Specialty Start Date End Date Jean Munoz MD [address] [place] [phone] PCP - General 12/31/08 Manny Rizzo MD [address] [place] [phone] 04/20/10 documented as of this encounter
--- OUTSIDE RECORDS SUMMARY | 2024-06-10 07:30 | XMS_ITS | Encounter Summary ---
Author Organization [facility] Address [address] [place] [address] Care Team Providers Care Clutch Operator Name Role Phone Jean Munoz MD Primary Care Provider Manny Rizzo MD Unavailable Reason for Visit * Reason Onset Date Comments Medications Refill 07/06/2012 Encounter Details Date Type Department Care Team (Late st Contact Info) Description 07/06/2012 Telephone [facility] Sleep Program - [address] [phone] Tiana Bacon [address] [place] [phone] Medications Refill Social History Tobacco Use [...] Encounter - Corrina Ac RN - 07/06/2012 1430 EDT Called [facility] again at [employer], confirmed that the Ritalin SR 20mg, 2 tabs daily approved for oneyear. * Telephone Encounter - Corrina Ac RN - 07/06/2012 1410 EDT Spoke with pt and her pharmacist, pt at her pharmacy now. They are having problems with claim goingthru. Called [employer] [phone] to clarify if there is an issue- they put in the wrong drug formulation on the yearly approval; they wrote as Ritalin 20mg #60 not Ritalin XR 20mg #60. Spoke with Radha at [employer] and reviewed again. * Telephone Encounter - Barbara Gimenez - 07/06/2012 1358 EDT Please call her. She is having troubles getting her script for Ritalin refilled. [employer] is telling the Pharmacist that they want her to use generic first. documented in this encounter Plan of Treatment Upcoming Encounters Date Type Department Care Team (Late st Contact Info) Description 06/29/2024 14:15 EDT Office Visit [facility] Medicine [facility] [address] [place], [place] [phone] Jean Munoz MD [address] [place] [address] documented as of this encounter Visit Diagnoses Not on filedocumented in this encounter Care Teams Clutch Operator Relationship Specialty Start Date End Date Jean Munoz MD [address] [place] [address] PCP - General 12/31/08 Manny Rizzo MD [address] [place] [phone] 04/20/10 documented as of this encounter
--- OUTSIDE RECORDS SUMMARY | 2024-06-10 07:30 | XMS_ITS | Encounter Summary ---
Author Organization [facility] Address [address] [place] [address] Care Team Providers Care Hairmasters Manager Name Role Phone Jean Munoz MD Primary Care Provider Manny Rizzo MD Unavailable Reason for Visit * Reason Onset Date Comments Pre-op Exam 06/21/2012 Encounter Details Date Type Department Care Team (Late st Contact Info) Description 06/21/2012 Pre-Procedure Orders Encounter [facility] Ankle Program - [address] [place], [place] [phone] Mirtha Velázquez LPN [address] [place] [address] Other complications due to other internal orthopedic device, implant, and graft Social History Tobacco Use Types Packs/Day Years [...] Visit [facility] [address] [place], [place] [phone] Jean Munoz MD [address] [place] [phone] documented as of this encounter Visit Diagnoses Diagnosis Other complications due to other internal orthopedic device, implant, and graft Screening for osteoporosis- Primary Special screening for osteoporosis Primary narcolepsy without cataplexy Chronic pain syndrome Chronic low back pain Lumbago Chronic use of opiate for therapeutic purpose Pain medication agreement Encounter for long-term (current) use of other medications Screen for colon cancer Special screening for malignant neoplasms, colon documented in this encounter Care Teams Hairmasters Manager Relationship Specialty Start Date End Date Jean Munoz MD [address] [place] [phone] PCP - General 12/31/08 Manny Rizzo MD [address] [place] [phone] 04/20/10 documented as of this encounter
--- OUTSIDE RECORDS SUMMARY | 2024-06-10 07:30 | XMS_ITS | Encounter Summary ---
Author Organization [facility] Address [address] [place] [address] Care Team Providers Care Button Riveter Name Role Phone Jean Munoz MD Primary Care Provider Manny Rizzo MD Unavailable Reason for Visit * Reason Onset Date Comments Prior Auth, Medication 07/06/2012 Encounter Details Date Type Department Care Team (Late st Contact Info) Description 07/06/2012 Telephone [facility] Sleep Program - [address] [phone] Corrina Ac, RN [address] [place] [address] Prior Auth, Medication Social History Tobacco Use [...] Encounter - Corrina Ac RN - 07/06/2012 1174 EDT Called [employer] for prior auth for brand name on the Ritalin SR 20mg 2 tabs in the morning, #60 month. No PA required for methylphenidate IR 10mg daily. Ritalin SR 20mg #60, brand, approved for oneyear, spoke with [employer]. Called pt and made her aware. Called [facility] in [place] and made them aware, clarified orders with [facility] pharmacist. documented in this encounter Plan of Treatment Upcoming Encounters Date Type Department Care Team (Late st Contact Info) Description 06/29/2024 14:[address] [facility] [address] [place] [address] Jean Munoz MD [address] [place] [address] documented as of this encounter Visit Diagnoses Not on filedocumented in this encounter Care Teams Button Riveter Relationship Specialty Start Date End Date Jean Munoz MD [address] [place] [phone] PCP - General 12/31/08 Manny Rizzo MD [address] [place] [address] 04/20/10 documented as of this encounter
--- OUTSIDE RECORDS SUMMARY | 2024-06-10 07:30 | XMS_ITS | Encounter Summary ---
Author Organization [facility] Address [address] [place] [address] Care Team Providers Care Brake Repair Supervisor Name Role Phone Jean Munoz MD Primary Care Provider Manny Rizzo MD Unavailable Encounter Details Date Type Department Care Team (Latest Contact Info) Description 09/28/2012 9:00 EST - 09/28/2012 9:03 EST Hospital Encounter [facility] Pulmonary Function Lab - [facility] [address] [place] [address] Emphysema Discharge Disposition: Home or Self Care Social [...] 90 Each 4 12/09/2011 11/24/2012 hydrocodone-acetaminoph en (LORTAB) 5-500 mg tabletIndications:Left knee pain Take 1 Tab by mouth every 6 hours as needed for Pain. 112 Tab 0 08/29/2012 09/29/2012 hydroxypropyl methylcellulose (ISOPTO TEARS) 0.5 % ophthalmic [...] the morning for narcolepsy. 60 Tab 0 10/01/2012 10/26/2012 methylphenidate (RITALIN;METHYLIN) 10 mg tablet Take one tab in the afternoon for narcolepsy 30 Tab 0 10/01/2012 10/06/2012 mometasone (NASONEX) 50 mcg/actuation nasal sprayIndications:Season al allergic rhinitis 2 Sprays by Nasal route daily. 3 Inhaler 4 12/09/2011 11/24/2012 nortriptyline (PAMELOR) 75 mg capsuleIndications:Depr ession Take 1 Cap by mouth daily. 30 Each 4 12/09/2011 11/24/2012 omeprazole (PRILOSEC) 20 mg capsuleIndications:Inso mnia Take 1 Cap by mouth daily. 90 Cap 4 12/09/2011 11/24/2012 pregabalin (LYRICA) 150 mg capsuleIndications:Rn Cardiovascular majo back pain Take 1 Cap by mouth 3 times daily. 90 Each 1 08/29/2012 09/29/2012 promethazine (PHENERGAN) 25 mg tablet Take 1 [...] BY MOUTH AT BEDTIME 30 Each 2 07/16/2012 10/18/2012 sumatriptan (IMITREX) 50 mg tablet Take 1 [...] Code Departure Means Destination Home or Self [facility] documented in this encounter Progress Notes * Radha Ledesma RT - 09/28/2012 0921 EST Testing was performed and recorded in [facility]. documented in this encounter Procedure Notes * SEARCH ADVERTISING STRATEGIST, SCAN 2 - 10/05/2012 1329 ESTAssociated Order(s): PULMONARY FUNCTION LAB REPORT - SCANNED documented in this encounter Plan of Treatment Upcoming Encounters Date Type Department Care Team (Late st Contact Info) Description 06/29/2024 14:15 EDT Office Visit [facility] [address] [place], [place] [phone] Jean Munoz MD [address] [place] [phone] documented as of this encounter Procedures Procedure Name Priority Date/Time Associated Diagnosis Comments PULMONARY FUNCTION REPORT - SCANNED 10/05/2012 13:29 EST documented in this encounter Results * PULMONARY FUNCTION LAB REPORT - SCANNED (10/05/2012 13:29 EST) 10/05/2012 13:2 9 EST Narrative 10/05/2012 14:19 EST Procedure Note SEARCH ADVERTISING STRATEGIST, SCAN 2 - 10/05/2012 13:29 EST Scan 2 Corrections Nurse PROCEDURE/MINOR GURU GICAL ORDERABLES documented in this encounter Visit Diagnoses Diagnosis Emphysema Other emphysema Screening for osteoporosis- Primary Special screening for osteoporosis Primary narcolepsy without cataplexy Chronic pain syndrome Chronic low back pain Lumbago Chronic use of opiate for therapeutic purpose Pain medication agreement Encounter for long-term (current) use of other medications Screen for colon cancer Special screening for malignant neoplasms, colon documented in this encounter Care Teams Brake Repair Supervisor Relationship Specialty Start Date End Date Jean Munoz MD [address] [place] [phone] PCP - General 12/31/08 Manny Rizzo MD [address] [place] [address] 04/20/10 documented as of this encounter
--- OUTSIDE RECORDS SUMMARY | 2024-06-10 07:30 | XMS_ITS | Encounter Summary ---
Author Organization [facility] Address [address] [place] [address] Care Team Providers Care Mine Analyst Name Role Phone Jean Munoz MD Primary Care Provider Manny Rizzo MD Unavailable Reason for Visit * Reason Comments Follow-up ankle surgery Encounter Details Date Type Department Care Team (Late st Contact Info) Description 08/03/2012 14:00 EST Office Visit [facility] [address] [place] [address] Jean Munoz MD [address] [place] [address] Chronic knee pain; Asthma; Insomnia; Narcolepsy Social History Tobacco Use Types Packs/Day Years [...] Sign Reading Time Taken Comments Blood Pressure 106/72 08/03/2012 1408 EST Pulse 72 08/03/2012 1408 EST Temperature 36.1 ??C (97 ??F) 08/03/2012 1408 EST Respiratory Rate - - Oxygen Saturation - - Inhaled Oxygen Concentration - - Weight 89.4 kg (197 lb) 08/03/2012 1408 EST Height 162.6 cm (5' 4) 08/03/2012 1408 EST Body Mass Index 33.81 08/03/2012 1408 EST documented in this encounter Functional Status Cognitive Status Response Date of Assessm ent Because of a physical, menta l, or emotional condition, do you have serious difficulty concentrating, remembering, or making decisions? (5 years old or older) Yes 04/05/2012 documented as of this encounter Ordered Prescriptions Prescription Sig Dispensed Refills Start Date End Da te hydrocodone-acetaminophen (LORTAB;VICODIN) 5-500 mg tabletIndications:Chronic knee pain Take 1 Tab by mouth every 6 hours as needed for Pain. 112 Tab 0 08/03/2012 08/29/2012 documented in this encounter Progress Notes * Jean Munoz MD - 08/03/2012 1428 EST Subjective: Patient ID: Liset Viera is an 51 y.o. female. Chief Complaint Patient presents with ??? Follow-up ankle surgery HPI 1. S/p right ankle surgery (hardware removal) Overall improved F/U Dr Tilley pending 2. Still has knee pain No change Saw Dr Glynn in June, ?injection No F./U yet Pain current 04/22 Was on Vicodin 5mg 4/day prior to surgery Rx 10 mg #50 per surgery post up Now needs refill Asthma F/U pending September for CT, Pulmonary Needs for completed for exemption from work training patient states this is due to combination of issues including pain, breathing problems, narcolepsy Patient Active Problem List Diagnoses ??? Severe [...] ??? Anxiety ??? Routine health maintenance ??? Fracture of right ankle ??? Fatty liver ??? Edema of leg ??? Chronic pain ??? Arthritis ??? Cervical [...] Atypical pneumonia ??? Narcolepsy without cataplexy ??? Borderline diabetes mellitus ??? Varicose veins ??? Other complications due [...] 04/05/2012 ??? Chronic fatigue ??? Wears glasses Current Outpatient Prescriptions on File Prior to Visit Medication Sig Dispense Refill ??? methylphenidate (RITALIN SR; METADATE ER; METHYLIN ER) 20 mg SR tablet Brand only. Take 2 tabs in the morning for narcolepsy. 60 Tab 0 ??? methylphenidate (RITALIN;METHYLIN) 10 mg tablet Take one tab in the afternoon for narcolepsy 30Tab 0 ??? SINGULAIR 10 mg tablet TAKE ONE TABLET BY MOUTH AT BEDTIME 30 Each 2 ??? cyclosporine (RESTASIS) 0.05 % ophthalmic emulsion Place 1 Drop into both eyes 4 times daily. 2Tray 11 ??? hydrocodone-acetaminophen (LORTAB) 10-500 mg per tablet Take 1-2 Tabs by mouth every 6 hours asneeded for Pain. 50 Tab 0 ??? tiotropium (SPIRIVA WITH HANDIHALER) 18 mcg inhalation capsule Inhale 1 Cap as directed daily. 1 Cap 11 ??? pregabalin (LYRICA) 150 mg capsule Take 1 Cap by mouth 3 times daily. 90 Each 1 ??? zolpidem (AMBIEN) 10 mg tablet Take 1 Tab by mouth at bedtime as needed for Sleep. 30 Each 2 ??? promethazine (PHENERGAN) 25 mg tablet Take [...] rarely ROS - See HPI Objective: BP 106/72 Pulse 72 Temp(Src) 36.1 ??C (97 ??F) (Oral) Ht 162.6 cm (64) Wt 89.359 kg (197 lb) BMI 33.82 kg/m2 Physical Exam deferred Assessment: Plan: Liset was seen today for follow-up. Diagnoses and associated orders for this visit: Chronic knee pain - Encouraged F/U Dr Glynn - Tentative plan next visit is to wean narcotics if no surgery or other intervention planned - hydrocodone-acetaminophen (LORTAB;VICODIN) 5-500 mg tablet; Take 1 Tab by mouth every 6 hours as needed for Pain. Asthma F/U Pulmonary Insomnia Renew Ambien next visit Narcolepsy F/U per Sleep Clinic Form completed Patient Education Topic: as above Method: Verbal Taught to: Patient Barriers: None Outcomes: Verbalized understanding Return in about 4 weeks (around 09/02/2012) for SERA. Return in about 4 weeks (around 09/02/2012) for SERA. documented in this encounter Miscellaneous Notes * Assessment & Plan Note - Jean Munoz MD - 08/03/2012 1435 EST Associated Problem(s): Asthma (Resolved 03/03/2017) F/U pending September for CT, Pulmonary documented in this encounter Plan of Treatment Upcoming Encounters Date Type Department Care Team (Late st Contact Info) Description 06/29/2024 14:15 EDT Office Visit [facility] Medicine [facility] [address] [place] [address] Jean Munoz MD [address] [place] [phone] documented as of this encounter Visit Diagnoses Diagnosis Chronic knee pain Pain in joint, lower leg Asthma Unspecified asthma Insomnia Insomnia, unspecified Narcolepsy Narcolepsy without cataplexy Screening for osteoporosis- Primary Special screening for osteoporosis Primary narcolepsy without cataplexy Chronic pain syndrome Chronic low back pain Lumbago Chronic use of opiate for therapeutic purpose Pain medication agreement Encounter for long-term (current) use of other medications Screen for colon cancer Special screening for malignant neoplasms, colon documented in this encounter Care Teams Mine Analyst Relationship Specialty Start Date End Date Jean Munoz MD [address] [place] [phone] PCP - General 12/31/08 Manny Rizzo MD [address] [place] [phone] 04/20/10 documented as of this encounter
--- OUTSIDE RECORDS SUMMARY | 2024-06-10 07:30 | XMS_ITS | Encounter Summary ---
Author Organization [facility] Address [address] [place] [address] Care Team Providers Care Spring Clipper Name Role Phone Jean Munoz MD Primary Care Provider Manny Rizzo MD Unavailable Reason for Visit * Reason Onset Date Comments Other 08/16/2012 Encounter Details Date Type Department Care Team (Late st Contact Info) Description 08/16/2012 Telephone [facility] [address] [place] [address] Jean Munoz MD [address] [place] [phone] Other Social History Tobacco Use Types [...] * Telephone Encounter - Rukhsana Molina - 08/16/2012 1012 EST Medical necessity form from [facility] given to nurse for completion documented in this encounter Plan of Treatment Upcoming Encounters Date Type Department Care Team (Late st Contact Info) Description 06/29/2024 14:15 EDT Office Visit [facility] [address] [place] [address] Jean Munoz MD [address] [place] [phone] documented as of this encounter Visit Diagnoses Not on filedocumented in this encounter Care Teams Spring Clipper Relationship Specialty Start Date End Date Jean Munoz MD [address] [place] [phone] PCP - General 12/31/08 Manny Rizzo MD [address] [place] [address] 04/20/10 documented as of this encounter
--- OUTSIDE RECORDS SUMMARY | 2024-06-10 07:30 | XMS_ITS | Encounter Summary ---
Author Organization [facility] Address [address] [place] [address] Care Team Providers Care Archivist [employer]profit Foundation Name Role Phone Jean Munoz MD Primary Care Provider Manny Rizzo MD Unavailable Reason for Visit * Reason Comments Follow-up hardware removal rig ht ankle on 07/04/12 Encounter Details Date Type Department Care Team (Latest Contact Info) Description 09/01/2012 10:30 EST Office Visit [facility] Foot & Ankle Program - [address] [address] Liu Tilley MD [address] [place] [phone] Other complications due to other internal orthopedic device, implant, and graft (Primary Dx) Discharge Disposition: Auto Discharge Social [...] Progress Notes * Liu Tilley MD - 09/01/2012 1144 EST PROGRESS NOTE/FOLLOWUP NOTE SUBJECTIVE: Liset Viera comes in today in follow up hardware removal right ankle on 07/04/12. She is doing well and has no complaints related to her ankle. REVIEW OF SYSTEMS: Negative except for pertinent positives listed above. OBJECTIVE: Patient is in no acute distress, appears normal, mood and affect appropriate, alert and oriented x3. Good historian. Right Ankle: Skin: Incision well healed. Slight swelling in posterolateral ankle. Pulses: Nicely palpable. Sensation: Sural nerve is intact. Strength: Intact. Musculoskeletal: Slight tenderness with palpation over lateral ankle. Ankle comes to neutral. Good plantarflexion. ASSESSMENT AND PLAN: Uzmas ankle is improving after removal of hardware. No restrictions at this point. She can increase activity, letting discomfort be her guide. Follow up PRN. I, Sean Beth, am scribing for Dr. Liu Tilley, while he is personally performing the service. Cc: Jean Munoz MD Cc: Alexander documented in this encounter Plan of Treatment Upcoming Encounters Date Type Department Care Team (Late st Contact Info) Description 06/29/2024 14:15 EDT Office Visit [facility] [address] [place] [address] Jean Munoz MD [address] [place] [phone] documented as of this encounter Visit Diagnoses Diagnosis Other complications due to other internal orthopedic device, implant, and graft- Primary Screening for osteoporosis- Primary Special screening for osteoporosis Primary narcolepsy without cataplexy Chronic pain syndrome Chronic low back pain Lumbago Chronic use of opiate for therapeutic purpose Pain medication agreement Encounter for long-term (current) use of other medications Screen for colon cancer Special screening for malignant neoplasms, colon documented in this encounter Care Teams Archivist [employer]profit Foundation Relationship Specialty Start Date End Date Jean Munoz MD [address] [place] [address] PCP - General 12/31/08 Manny Rizzo MD [address] [place] [phone] 04/20/10 documented as of this encounter
--- OUTSIDE RECORDS SUMMARY | 2024-06-10 07:30 | XMS_ITS | Encounter Summary ---
Author Organization [facility] Address [address] [place] [address] Care Team Providers Care Community Support Worker Name Role Phone Jean Munoz MD Primary Care Provider Manny Rizoz MD Unavailable Reason for Visit * Reason Comments Knee Pain left knee pain Encounter Details Date Type Department Care Team (Late st Contact Info) Description 06/22/2012 11:30 EDT Office Visit [facility] Sports Medicine Program - [address] [id number] Bear Glynn MD [address] [place] [phone] Prepatellar bursitis of left knee (Primary Dx) Social History [...] Progress Notes * Bear Glynn MD - 07/03/2012 143 EDT PROBLEM: Contusion left knee. SUBJECTIVE: Ms Viera continues to experience swelling, but she has no feelings of buckling or giving way. She is working on strengthening at physical therapy as well as modalities including ultrasound, ice and electrical stimulation. OBJECTIVE: Examination of the left knee shows no palpable effusion. There is tenderness about the pes anserinus, which is increased, with resisted flexion of the knee. She also has tenderness in the hamstring tendons proximal to their insertion on the tibia. ASSESSMENT: Given Ms Viera' MRI appearance, I think that this is a contusion about the pes primarily. I discussed the possibility of an injection to help decrease her symptoms. She wishes to thinkabout this. PLAN: Ms Viera will continue with her course of conservative treatment. She will call us regarding her decision regarding an injection. documented in this encounter Plan of Treatment Upcoming Encounters Date Type Department Care Team (Late st Contact Info) Description 06/29/2024 14:15 EDT Office Visit [address] [address] Jean Munoz MD [address] [place] [phone] documented as of this encounter Visit Diagnoses Diagnosis Prepatellar bursitis of left knee- Primary Prepatellar bursitis Screening for osteoporosis- Primary Special screening for osteoporosis Primary narcolepsy without cataplexy Chronic pain syndrome Chronic low back pain Lumbago Chronic use of opiate for therapeutic purpose Pain medication agreement Encounter for long-term (current) use of other medications Screen for colon cancer Special screening for malignant neoplasms, colon documented in this encounter Care Teams Community Support Worker Relationship Specialty Start Date End Date Jean Munoz MD [address] [place] [phone] PCP - General 12/31/08 Manny Rizzo MD [address] [place] [address] 04/20/10 documented as of this encounter
--- OUTSIDE RECORDS SUMMARY | 2024-06-10 07:30 | XMS_ITS | Encounter Summary ---
Author Organization [facility] Address [address] [place] [address] Care Team Providers Care Oncology Nurse Navigator Name Role Phone Jean Munoz MD Primary Care Provider Manny Rizzo MD Unavailable Encounter Details Date Type Department Care Team (Latest Contact Info) Description 07/04/2012 6:14 EDT - 07/04/2012 9:51 EDT Hospital Encounter [facility] Perioperative Services - [address] [place] [address] Jimmy Tilley MD [address] [place] [address] Other complications due to other internal orthopedic device, implant, and graft Discharge Disposition: Home or Self Care Social [...] Sign Reading Time Taken Comments Blood Pressure 104/55 07/04/2012 0930 EDT Pulse - - Temperature 36 ??C (96.8 ??F) 07/04/2012 0930 EDT Respiratory Rate 19 07/04/2012 0930 EDT Oxygen Saturation 97% 07/04/2012 0930 EDT Inhaled Oxygen Concentration - - Weight 90.7 kg (200 lb) 06/27/2012 1654 EDT Height 162.6 cm (5' 4) 06/27/2012 1654 EDT Body Mass Index 34.33 06/27/2012 1654 EDT documented in this encounter Functional Status Cognitive Status Response Date of Assessm ent Because of a physical, menta l, or emotional condition, do you have serious difficulty concentrating, remembering, or making decisions? (5 years old or older) Yes 04/05/2012 documented as of this encounter Discharge Instructions * Discharge Instructions* Bj Gonzalez MD - 07/04/2012 8:57 EDT SURGERY PATIENTS OF DR. JIMMY TILLEY [address] [place] [address] POST OPERATIVE INSTRUCTIONS Elevate R foot Weightbearing as tolerated with boot. May shower with bag and tape over splint -- do not get splint wet. If no splint, keep dressing clean and dry until wednesday, then you may remove dressing and shower. Then cover with a dry dressing. Call with fevers, worsening pain, or general signs of not feeling well. Hydrocodone/acetaminophen for pain Call with questions [phone] documented in this encounter Medications at Time [...] Drop to eye 2 times daily. 07/05/2012 cyclosporine (RESTASIS) 0.05 % ophthalmic emulsion Place 1 Drop into both eyes 4 times daily. 2 Tray 11 07/05/2012 10/24/2013 doxycycline (VIBRA-TABS) 100 mg tablet Take 1 Tab by mouth daily. 30 Tab 11 10/13/2011 10/13/2012 fexofenadine (JUDITH) 180 mg tabletIndications:Seaso nal allergic rhinitis Take 1 Tab by mouth daily. 90 Each 4 12/09/2011 11/24/2012 hydrocodone-acetaminoph en (LORTAB) 10-500 mg per tablet Take 1-2 Tabs by mouth every 6 hours as needed for Pain. 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 90 Each 1 06/24/2012 08/29/2012 promethazine (PHENERGAN) 25 mg tablet Take 1 [...] 05/26/2012 08/29/2012 documented as of this encounter Ordered Prescriptions Prescription Sig Dispensed Refills Start Date End Da te hydrocodone-acetaminophen (LORTAB) 10-500 mg per tablet Take 1-2 Tabs by mouth every 6 hours as needed for Pain. 50 Tab 0 07/04/2012 08/29/2012 documented in this encounter Discharge Disposition Disposition Code Departure Means Destination Home or Self Care documented in this encounter Progress Notes * Marie Min RN - 07/04/2012 0906 EDT Pt present awake. Med for pain as needed. Pt has hx chronic pain and takes vicodin at home. Given another rx for increased dose of vicodin. Pain at tolerable level. Awake and brenda po's Home with friend Able to amb to br indep documented in this encounter H&P Notes * Jimmy Tilley MD - 07/04/2012 0722 EDT The preoperative history and physical which was performed within 30 days of this procedure has been reviewed and the clinically appropriate elements of the physical examination have been repeated. There are no changes to the documented history and physical or if so such changes are documented below JIMMY TILLEY MD 07/04/2012 7:22 Source Note - Jean Munoz MD - 06/24/2012 14:23 EDT Preoperative H&P Date of Service: 06/24/2012 Chief Complaint: Chief Complaint Patient presents with ??? Medication Management ??? Pre-op Exam Planned Procedure: Right ankle hardware removal Surgeon: Dr Tilley Planned Procedure Date: 07/04/12 Problem List Available or Initiated: yes HISTORY OF PRESENT ILLNESS: Liset Viera is a 51 y.o., female, right ankle injury 03/30/10, s/p ORIF at [facility], still with ankle pain, 02/20, +stiffness, intermittent [...] fracture surgery 04/01/10 left ankle ORIF [facility] ??? 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 X Musculoskeletal + Right ankle, left knee [...] MD 06/24/2012 14:23 documented in this encounter Procedure Notes * EMT INTERMEDIATE, SCAN 2 - 07/07/2012 1058 EDTAssociated Order(s): ECG REPORT - SCANNED documented in this encounter Nursing Notes * EMT INTERMEDIATE, SCAN 2 - 07/07/2012 1058 EDT documented in this encounter OR Notes * Anesthesia Preprocedure Evaluation - EMT INTERMEDIATE, SCAN 2 - 07/07/2012 1058 EDT * OR PreOp - EMT INTERMEDIATE, SCAN 2 - 07/07/2012 1058 EDT * OR Surgeon - Jimmy Tilley MD - 07/05/2012 0803 EDT OPERATIVE REPORT SERVICE DATE: 07/04/2012 SURGEON: Jimmy Tilley MD SUPERINTENDENT CUSTODIAN JANITOR: Bj Gonzalez MD PREOPERATIVE DIAGNOSIS: Painful hardware, right ankle, following ORIF of bimalleolar ankle fracture. POSTOPERATIVE DIAGNOSIS: Painful hardware, right ankle, following ORIF of bimalleolar ankle fracture. PROCEDURE: Hardware removal of ankle hardware. ANESTHESIA: General. INDICATIONS: Ms Viera is a 51-year-old who last year sustained a bimalleolar ankle fracture witha lateral malleolus and a posterior malleolus that was fixed through a posterolateral approach by Dr Craig Hawk. She has gone on to heal without any difficulty but is having difficulty in pain overlying the hardware. We discussed hardware removal as a potential option to help improve pain and therefore function. The risks, benefits and alternatives were discussed with her including but not limited to bleeding, infection, damage to neurovascular structures including the sural nerve, persistent pain, swelling, stiffness, possibility of fracture through the screw hole in the initial postoperative p eriod. She understood and wished to proceed. NARRATIVE: The patient was identified in the holding area and brought back to the operating room where she underwent the induction of general anesthesia. She was then placed in the prone position, taking care to pad all bony prominences appropriately. A preoperative brief was performed confirming the correct patient, procedure and extremity. She received prophylactic antibiotics of Ancef. The right lower extremity was then prepped and draped in the usual sterile fashion, and then the tourniquet, which had been placed on her right thigh over multiple layers of Webril, was inflated after exsanguinating the limb with an Esmarch. A posterolateral incision was then used in its length going through the skin. The soft tissue was dissected to avoid the sural nerve. We initially went along the posterolateral aspect of the Achilles. The deep fascia was then incised and the FHL tendon and muscle belly were identified and elevated more medially. This allowed us to see the posterior antiglide plate on the posterior malleolus. The proximal screw was then removed, followed by the plate without difficulty. We then dissected over the peroneal tendons to the posterior lateral aspect of the fibula. The periosteum on the fibula was then incised, and then the [place] elevator was used to elevate over the plate. The four screws in the plate and the posterior to anterior lag screw were then removed with a screwdriver and then the plate was elevated off the bone. At this point, a fluoroscopic image was obtained to confirm that all hardware had been removed. The wound was then irrigated copiously and then closed with 3-0 nylon. Then 0.5% Marcaine and 2% lidocaine were injected about the wound to help with postoperative pain relief. Sterile dressing was applied followed by a postoperative boot. She was then rolled into the supine position, extubated and brought to recovery room in stable condition. Sponge and needle counts were correct. There were no obvious intraoperative complications. Estimated blood loss was less than 10 mL. TOURNIQUET TIME: 30 minutes at 300 mmHg. The hardware was given to the patient. Unless otherwise noted, there were no complications, no blood loss, no cultures obtained, no specimens removed, and no drains retained. Jimmy Tilley MD 08 46 AM / Jimmy Tilley MD Confirmation: [id number] Dictation ID: [id number] * Anesthesia Procedure Notes - EMT INTERMEDIATE, SCAN 2 - 07/04/2012 0907 EDT * OR PreOp - EMT INTERMEDIATE, SCAN 2 - 07/04/2012 0844 EDT * Anesthesia Preprocedure Evaluation - EMT INTERMEDIATE, SCAN 2 - 07/04/2012 0740 EDT documented in this encounter Miscellaneous Notes * Scanned Note-Null - EMT INTERMEDIATE, SCAN 2 - 07/07/2012 1058 EDT * Scanned Note-Null - EMT INTERMEDIATE, SCAN 2 - 07/07/2012 1058 EDT * Anesthesia Post-Eval - Leila Rosa MD - 07/04/2012 0947 EDT Post Anesthesia Evaluation Note Date of Service: 07/04/2012 Liset Viera, a 51 y.o. year old female has received General Anesthesia today. She has been evaluated, assessed and discharged from anesthesia care with stable cardiorespiratory function and alertmental status. The last set of recorded vital signs and pain rating were reviewed: Temp: 36 ??C (96.8 ??F) (07/04/12929), Heart Rate: 65 BPM (07/04/12929), BP: 104/55 mmHg (07/04/12929), Resp: 19 (07/04/12929), SpO2: 97 % (07/04/12929),Numeric Pain Level (Scale 1-10): 7 Liset Viera participated in this evaluation unless otherwise noted. Her pain, nausea and vomiting have been managed and her body temperature and fluid balance have been restored. Additional monitoring and assessment needs have been addressed. If present, any postoperative events are documented below. LEILA ROSA MD 07/04/2012 9:47 * Brief Op Note - Bj Gonzalez MD - 07/04/2012 0850 EDT Ortho Brief Op Note Date of Surgery: 07/04/2012 Surgeon: Jarek Assistants: Carlos Pre-Op Diagnosis: R ankle painful hardware s/p ORIF ankle fx Post-Op Diagnosis: same Procedure(s): Right Ankle hardware Removal Anesthesia Type: General Findings: see dictation. Tourniquet Time: 30 min. Estimated Blood Loss: minimal ml Fluids: Liset Viera received 500ml of fluid replacement. Specimens/Cultures: none Implants/Foreign materials: n Complications: none Disposition and Condition: Liset Viera was sent to PACU in Stable condition. Unless otherwise noted, there was no blood loss, specimens removed, cultures obtained, or drains retained. BJ GONZALEZ MD documented in this encounter Plan of Treatment Upcoming Encounters Date Type Department Care Team (Late st Contact Info) Description 06/29/2024 14:15 EDT Office Visit [facility] [address] [place] [address] Jean Munoz MD [address] [place] [address] documented as of this encounter Procedures Procedure Name Priority Date/Time Associated Diagnosis Comments ECG REPORT - SCANNED 07/07/2012 10:58 EDT PORT FLUORO UP TO 1 HOUR 07/04/2012 8:45 EDT documented in this encounter Results * ECG REPORT - SCANNED (07/07/2012 10:58 EDT) 07/07/2012 10:5 8 EDT Narrative 07/07/2012 11:59 EDT Procedure Note EMT INTERMEDIATE, SCAN 2 - 07/07/2012 10:58 EDT Scan 2 School Manager PROCEDURE/MINOR GURU GICAL ORDERABLES * PORT FLUORO UP TO 1 HOUR (07/04/2012 8:45 EDT) Anatomical Region Laterality Modality Other 07/04/2012 8:45 EDT Narrative 07/04/2012 8:45 EDT Non Reportable Exam Procedure Note 07/04/2012 Non Reportable Exam Jimmy Tilley MD IMG FLUOROSCOPY O RDERABLES documented in this encounter Visit Diagnoses Diagnosis Other complications due to other internal orthopedic device, implant, and graft Other complications due to other internal orthopedic [...] mg, oral, PRE-OP ONCE, 1 dose, On Wed07/04/12 at 0730, Routine, Pre Op Day of Surgery Given 07/04/2012 7:16 EDT 1,000 mg ceFAZolin (ANCEF) syringe 2 g 2 g, intravenous, Administer over 10 Minutes, PRE-OP ONCE, 1 dose, On Wed07/04/12 at 0730, Routine, Pre Op Day of Surgery Given by Other 07/04/2012 7:53 EDT 2 g fentanyl citrate (PF) 50 mcg/mL injection 25-100 mcg 25-100 mcg, intravenous, EVERY 5 MIN PRN, Starting on Wed07/04/12 at 0845, Until Wed07/04/12 at 1201, Pain, Routine, Recovery (only) Given 07/04/2012 9:17 EDT 50 mcg lactated ringers (LR) infusion at 25 mL/hr, intravenous, CONTINUOUS, Starting on Wed07/04/12 at 0730, Until Wed07/04/12 at 1201, Routine, Pre Op Day of Surgery New Bag 07/04/2012 7:22 EDT 25 mL/hr oxycodone (OXYCONTIN) CR tablet 10 mg 10 mg, oral, PRE-OP ONCE, 1 dose, On Wed07/04/12 at 0730, Routine, Pre Op Day of Surgery Given 07/04/2012 7:16 EDT 10 mg pregabalin (LYRICA) capsule 100 mg 100 mg, oral, PRE-OP ONCE, 1 dose, On 07/04/12 at 0730, Routine, Pre Op Day of Surgery Given 07/04/2012 7:16 EDT 100 mg documented in this encounter Discontinued Medications Medication Sig Discontinue Reason Start Date End Da te hydrocodone-acetaminophe n (LORTAB;VICODIN) 5-500 mg tabletIndications:Chroni c knee pain Take 1 Tab by mouth every 6 hours as needed for Pain. 06/24/2012 07/04/2012 documented as of this encounter Active and Recently Administered Medications Times are shown in EDT. Scheduled Medication Order 07/02/2012 07/03/2012 07/04/2012 acetaminophen (TYLENOL) tablet 1,000 mg (COMPLETED) 1,000 mg, oral, PRE-OP ONCE, 1 dose, On Wed07/04/12 at 0730, Routine, Pre Op Day of Surgery 0716 (Given - Provid er: Rocio Garay RN) ceFAZolin (ANCEF) syringe 2 g (COMPLETED) 2 g, intravenous, Administer over 10 Minutes, PRE-OP ONCE, 1 dose, On 07/04/12 at 0730, Routine, Pre Op Day of Surgery 0753 (Given by Other - Provider: Lata Blanton RN - Comment: Given pre-operatively by Parisa) oxycodone (OXYCONTIN) CR tablet 10 mg (COMPLETED) 10 mg, oral, PRE-OP ONCE, 1 dose, On Wed07/04/12 at 0730, Routine, Pre Op Day of Surgery 0716 (Given - Provid er: Rocio Garay RN) pregabalin (LYRICA) capsule 100 mg (COMPLETED) 100 mg, oral, PRE-OP ONCE, 1 dose, On Wed07/04/12 at 0730, Routine, Pre Op Day of Surgery 0716 (Given - Provid er: Rocio Garay RN) Continuous Medication Order 07/02/2012 07/03/2012 07/04/2012 lactated ringers (LR) infusion (CANCELED) at 25 mL/hr, intravenous, CONTINUOUS, Starting on Wed07/04/12 at 0730, Until Wed07/04/12 at 1201, Routine, Pre Op Day of Surgery 0722 (New Bag - Prov ider: Rocio Garay RN) PRN Medication Order 07/02/2012 07/03/2012 07/04/2012 fentanyl citrate (PF) 50 mcg/mL injection 25-100 mcg (CANCELED) 25-100 mcg, intravenous, EVERY 5 MIN PRN, Starting on Wed07/04/12 at 0845, Until Wed07/04/12 at 1201, Pain, Routine, Recovery (only) 0917 (Given - Provid er: Marie Min RN) documented in this encounter Orders Medications Ordered That Victor Manuel ht Not Have Been Administered Count Last Ordered Date First Ordered Date atropine 0.1 mg/mL 10 mL syringe 0.5 mg 1 1 hydrocodone-acetaminophen (L ORTAB) 10-500 mg per tablet 1 Tab 1 07/04/2012 lactated ringers (LR) infusion 1 07/04/2012 naloxone (NARCAN) injection 0.2 mg 1 2011 ondansetron (PF) (ZOFRAN) injection 2 mg 1 07/04/2012 oxycodone-acetaminophen (PER COCET) 5-325 mg per tablet 1-2 Tab 1 07/04/2012 Nursing Count Last Ordered Date First Orde red Date APPLY WARMING BLANKET 1 07/04/2012 Admission Count Last Ordered Date First Orde red Date STATUS: OUTPATIENT SURGICAL OP BED/SERVICES 1 07/04/2012 Transfer Count Last Ordered Date First Orde red Date NOTIFY PPS PACU PATIENT DISCHARGE 1 012 Discharge Count Last Ordered Date First Orde red Date DISCHARGE PATIENT 1 07/04/2012 documented in this encounter Care Teams Oncology Nurse Navigator Relationship Specialty Start Date End Date Jean Munoz MD [address] [place] [address] PCP - General 12/31/08 Manny Rizzo MD [address] [place] [id number] 8/8/10 documented as of this encounter
--- OUTSIDE RECORDS SUMMARY | 2024-06-10 07:30 | XMS_ITS | Encounter Summary ---
Author Organization [facility] Address [address] [place] [address] Care Team Providers Care Sports Marketing Internship Name Role Phone Jean Munoz MD Primary Care Provider Manny Rizzo MD Unavailable Reason for Visit * Reason Comments Post-OP Follow Up Hardware removal of ankle hardware 07/04/12 Encounter Details Date Type Department Care Team (Latest Contact Info) Description 07/19/2012 8:15 EST Office Visit [facility] Foot & Ankle Program - [address] [address] Liu Tilley MD [address] [place] [phone] Other complications due to other internal orthopedic device, implant, and graft (Primary Dx) Social History Tobacco Use Types [...] Progress Notes * Liu Tilley MD - 07/19/2012 0800 EST PROGRESS NOTE/FOLLOWUP NOTE SUBJECTIVE: Liset Viera comes in today in follow after hardware removal right ankle on 07/04/12. She states today that she feels good, is pleased with her outcome and has no complaints. REVIEW OF SYSTEMS: Negative except for pertinent positives listed above. OBJECTIVE: Patient is in no acute distress, appears normal, mood and affect appropriate, alert and oriented x3. Good historian. Right Ankle: Skin: Incision is healing well, no sign of infection. No swelling, no redness. Pulses: nicely palpable. Sensation: Intact. Strength: Intact. Musculoskeletal: Some stiffness in ankle. ASSESSMENT AND PLAN: Ms. Viera is doing very well today and is making a satisfactory recovery. Stitches out today. She can begin to wean out of the boot. She can gradually build in terms of activity, being careful to avoid pounding- type activity for a few more weeks. Follow up in 6 weeks. ISean, am scribing for Dr. Liu Tilley, while he is personally performing the service. Cc: Jean Munoz MD Cc: Alexander documented in this encounter Plan of Treatment Upcoming Encounters Date Type Department Care Team (Late st Contact Info) Description 06/29/2024 14:15 EDT Office Visit [facility] [address] [place] [address] Jean Munoz MD [address] [place] [phone] documented as of this encounter [...] colon documented in this encounter Care Teams Sports Marketing Internship Relationship Specialty Start Date End Date Jean Munoz MD [address] [place] [address] PCP - General 12/31/08 Manny Rizzo MD [address] [place] [phone] 04/20/10 documented as of this encounter
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
--- OUTSIDE RECORDS SUMMARY | 2024-06-10 07:30 | XMS_ITS | Encounter Summary ---
Author Organization [facility] Address [address] [place] [address] Care Team Providers Care Analyst Business Analysis Name Role Phone Jean Munoz MD Primary Care Provider Manny Rizzo MD Unavailable Encounter Details Date Type Department Care Team (Late st Contact Info) Description 09/28/2012 9:04 EST - 09/28/2012 23:59 EST Hospital Encounter [facility] Pulmonary Function Lab - [address] [phone] Unknown, Provider, Jeanette Virk MD [address] [facility] [place] [address] Discharge Disposition: Home or Self Care Social [...] mouth daily. 90 Cap 4 12/09/2011 11/24/2012 predniSONE (DELTASONE) 20 mg tablet Take 2 Tabs by mouth daily for 5 days. 10 Tab 0 09/28/2012 10/03/2012 pregabalin (LYRICA) 150 mg capsuleIndications:Irrigation Supervisor majo back pain Take 1 Cap by [...] or Self Usp documented in this encounter Plan of Treatment Upcoming Encounters Date Type Department Care Team (Late st Contact Info) Description 06/29/2024 14:15 EDT Office Visit [facility] [facility] [address] [place] [address] Jean Munoz MD [address] [place] [phone] documented as of this encounter Visit Diagnoses Not on filedocumented in this encounter Care Teams Analyst Business Analysis Relationship Specialty Start Date End Date Jean Munoz MD [address] [place] [phone] PCP - General 12/31/08 Manny Rizzo MD [address] [place] [phone] 04/20/10 documented as of this encounter
--- OUTSIDE RECORDS SUMMARY | 2024-06-10 07:30 | XMS_ITS | Encounter Summary ---
Author Organization [facility] Address [address] [place] [address] Care Team Providers Care Promotion Specialist Name Role Phone Jean Munoz MD Primary Care Provider Manny Rizzo MD Unavailable Reason for Visit * Reason Onset Date Comments Medications Refill 06/08/2012 Encounter Details Date Type Department Care Team (Late st Contact Info) Description 06/08/2012 Refill [facility] Sleep Program - [address] [phone] Tiana Bacon [address] [place] [phone] Medications Refill Social History Tobacco Use [...] for narcolepsy 30 Tab 0 06/08/2012 07/05/2012 methylphenidate (RITALIN SR; METADATE ER; METHYLIN ER) 20 mg SR tablet Brand only. Take 2 tabs in the morning for narcolepsy. 60 Tab 0 06/08/2012 07/05/2012 documented in this encounter Miscellaneous Notes * Telephone Encounter - Corrina Ac RN - 06/08/2012 1152 EDT Pt picked up her prescriptions for ritalin at the Sleep Center. * Telephone Encounter - Duy Booth - 06/08/2012 0812 EDT Calling to request a refill of Ritalin SR 20mgs and Ritalin 10mgs (Brand only) to be picked up. Call when ready. documented in this encounter Plan of Treatment Upcoming Encounters Date Type Department Care Team (Late st Contact Info) Description 06/29/2024 14:15 EDT Office Visit [facility] Medicine [facility] [address] [place], [place] [phone] Jean Munoz MD [address] [place] [phone] documented as of this encounter Visit Diagnoses Not on filedocumented in this encounter Discontinued Medications Medication Sig Discontinue Reason Start Date End Da te methylphenidate (RITALIN SR; METADATE ER; METHYLIN ER) 20 mg SR tablet Brand only. Take 2 tabs in the morning for narcolepsy. Reorder 05/11/2012 06/08/2012 methylphenidate (RITALIN;METHYLIN) 10 mg tablet Take one tab in the afternoon for narcolepsy Reorder 05/11/2012 06/08/2012 documented as of this encounter Care Teams Promotion Specialist Relationship Specialty Start Date End Date Jean Munoz MD [address] [place] [phone] PCP - General 12/31/08 Manny Rizzo MD [address] [place] [phone] 04/20/10 documented as of this encounter
--- OUTSIDE RECORDS SUMMARY | 2024-06-10 07:30 | XMS_ITS | Encounter Summary ---
Author Organization [facility] Address [address] [place] [address] Care Team Providers Care Hand Molder Meat Name Role Phone Jean Munoz MD Primary Care Provider Manny Rizzo MD Unavailable Reason for Visit * Reason Onset Date Comments Medications Refill 07/29/2012 Encounter Details Date Type Department Care Team (Late st Contact Info) Description 07/29/2012 Refill [facility] Sleep Program - [address] [phone] Corrina Ac, RN [address] [place] [address] Medications Refill Social History Tobacco Use Types [...] the afternoon for narcolepsy 30 Tab 0 08/03/2012 08/29/2012 methylphenidate (RITALIN SR; METADATE ER; METHYLIN ER) 20 mg SR tablet Brand only. Take 2 tabs in the morning for narcolepsy. 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 * Telephone Encounter - Duy Booth - 08/01/2012 1012 EST Calling to requests refills Ritalin SR 20mgs (Brand only) and Ritalin 10mgs to be picked up. Pleasecall when ready. * Telephone Encounter - Corrina Ac RN - 07/29/2012 1504 EST Called pt and let her know we are closed next and Wednesday at the Sleep Center. Suggested she check her supply of medication and if she thinks she will need a refill to give us a call back. documented in this encounter Plan of Treatment Upcoming Encounters Date Type Department Care Team (Late st Contact Info) Description 06/29/2024 14:15 EDT Office Visit [facility] Medicine [facility] [address] [place] [address] Jean Munoz MD [address] [place] [phone] documented as of this encounter Visit Diagnoses Not on filedocumented in this encounter Discontinued Medications Medication Sig Discontinue Reason Start Date End Da te methylphenidate (RITALIN SR; METADATE ER; METHYLIN ER) 20 mg SR tablet Brand only. Take 2 tabs in the morning for narcolepsy. Reorder 07/05/2012 08/01/2012 methylphenidate (RITALIN;METHYLIN) 10 mg tablet Take one tab in the afternoon for narcolepsy Reorder 07/05/2012 08/01/2012 documented as of this encounter Care Teams Hand Molder Meat Relationship Specialty Start Date End Date Jean Munzo MD [address] [place] [phone] PCP - General 12/31/08 [place] [address] [place] [phone] 04/20/10 documented as of this encounter
--- OUTSIDE RECORDS SUMMARY | 2024-06-10 07:30 | XMS_ITS | Encounter Summary ---
Author Organization [facility] Address [address] [place] [address] Care Team Providers Care Alliances Consultant Name Role Phone Jean Munoz MD Primary Care Provider Manny Rizzo MD Unavailable Reason for Referral * (Routine/Next Available) - Closed Specialty Diagnoses / Procedures Referred By Alex weldon Referred To Contact Diagnoses Abnormal CXR Hypoxia Abnormal PFTs Procedures SPIROMETRY WITH BRONCHODILATOR Jeanette Virk MD [address] [place] [phone] Referral ID Status Reason Start Date Expiration Date Visits Re quested Visits Authorized [id number] Closed 06/08/2012 1 1 * (Routine/Next Available) - Closed Specialty Diagnoses / Procedures Referred By Alex weldon Referred To Contact Diagnoses Hypoxia Abnormal CXR Abnormal PFTs Procedures LUNG VOLUMES (TLC,RV,FRC/TGV,SVC,RAW) Jeanette Virk MD [address] [place] [phone] Referral ID Status Reason Start Date Expiration Date Visits Re quested Visits Authorized [id number] Closed 06/08/2012 1 1 * (Routine/Next Available) - Closed Specialty Diagnoses / Procedures Referred By Contac t Referred To Contact Diagnoses Abnormal CXR Hypoxia Abnormal PFTs Procedures DIFFUSING CAPACITY (DLCO) Jeanette Virk MD [address] [place] [phone] Referral ID Status Reason Start Date Expiration Date Visits Re quested Visits Authorized [id number] Closed 06/08/2012 1 1 Reason for Visit * Reason Comments New Patient Visit Encounter Details Date Type Department Care Team (Late st Contact Info) Description 06/08/2012 8:45 EDT Office Visit [facility] [address] [address] Jeanette Virk MD [address] [place] [phone] Abnormal CXR; Hypoxia; Abnormal PFTs Social History Tobacco Use Types Packs/Day Years [...] Sign Reading Time Taken Comments Blood Pressure 122/72 06/08/2012 0825 EDT Pulse 71 06/08/2012 0825 EDT Temperature 36.4 ??C (97.6 ??F) 06/08/2012 0825 EDT Respiratory Rate 16 06/08/2012 0825 EDT Oxygen Saturation 97% 06/08/2012 0825 EDT Inhaled Oxygen Concentration - - Weight 94.8 kg (209 lb) 06/08/2012 08 EDT Height 162.4 cm (5' 3.94) 06/08/2012 0825 EDT Body Mass Index 35.95 06/08/2012 0825 EDT documented in this encounter Functional Status Cognitive Status Response Date of Assessm ent Because of a physical, menta l, or emotional condition, do you have serious difficulty concentrating, remembering, or making decisions? (5 years old or older) Yes 04/05/2012 documented as of this encounter Patient Instructions * Patient Instructions* Jeanette Virk MD - 06/08/2012 9:42 EDT 1. We will schedule lung function testing and a CT scan of the chest 2. I will give you a call when I see the results and we will make further plans at that time. Jeanette Virk MD documented in this encounter Progress Notes * Jeanette Virk MD - 06/09/2012 1322 EDT DIVISION OF PULMONOLOGY? CONSULTATION NOTE -06/09/2012 ?? Jean Munoz MD SO [address] [address] The patient was seen in consultation at the request of Jean Munoz MD for evaluation of Encounter Diagnoses Name Primary? Abnormal CXR ??? Hypoxia ??? Abnormal PFTs HISTORY OF PRESENTATION The patient is a 51-year-old woman with a longstanding history of adult-onset asthma who presents in consultation after an admission to the hospital in March when she was diagnosed with atypical pneumonia. Preceding that, she states that she has had increasing respiratory symptoms for a number of years with increased shortness of breath. She has been treated aggressively for asthma and was actually recently started on Singulair, which she does not think has necessarily helped significantly. She then became acutely ill in March with worsening shortness of breath. She had little cough initially but has developed some in the interim. She is not able to bring any significant amount of mucus up and has not had any hemoptysis. In March, she was admitted to the hospital, at which point she was significantly hypoxic. She was treated with a course of azithromycin and at time of discharge was requiring 4 liters of oxygen. She states that she has continued to improve since then, but is not back to her baseline respiratory status. She is dyspneic usually with activity, but also at night. She still uses oxygen with housework at home and for sleep. She has not needed to use frequent rescue inhalers but remains on her regimen of Advair and Singulair. Past Medical History Diagnosis Date ??? UTI [...] ??? Anxiety ??? Depression ??? Pneumonia 04/05/2012 History Substance Use Topics ??? Smoking status: Former Smoker -- 2.0 packs/day for 35 years Types: Cigarettes Quit date: 10/14/2010 ??? Smokeless tobacco: Never Used ??? Alcohol Use: No rarely Additional social history: she is not working currently but has had a number of different jobs in the past, though none with significant exposures. No history of TB or asbestos exposures. She is in contact with a neighbor's cat, but has no pets of her own. No hot tub, no mold or mildew problems in the home. Family History Problem Relation Age of Onset ??? Cancer Father esophageal ??? Heart Attack Father ??? Cataract Father ??? Cancer Paternal Aunt breast ??? Migraines Maternal Aunt ??? Stroke Maternal Grandmother ??? Heart Attack Maternal Grandmother ??? Heart Disease Maternal Grandmother ??? Cataract Maternal Grandmother ??? Cancer Paternal Grandmother leukemia ??? Cataract Mother ??? Cancer Mother ??? Cataract Maternal Grandfather A 12 point review of systems was obtained and was negative except as noted above, and for depression with difficulty sleeping, dizziness, chronic back pain, blurry vision, tinnitus, and general fatigue and malaise. Medications: has a current medication list which includes the following prescription(s): methylphenidate, methylphenidate, hydrocodone-acetaminophen, zolpidem, pregabalin, promethazine, sumatriptan, ipratropium-albuterol, montelukast, baclofen, fexofenadine, mometasone, nortriptyline, omeprazole, se rtraline, levalbuterol, ropinirole, advair diskus, doxycycline, cyclosporine, hydroxypropyl methylcellulose, and docusate sodium. Objective:?? PHYSICAL EXAMINATION: A well-nourished femalein no respiratory distress. Vital signs: BP 122/72 Pulse 71 Temp(Src) 36.4 ??C (97.6 ??F) (Tympanic) Resp 16 Ht 162.4 cm (63.94) Wt 94.802 kg (209 lb) BMI 35.95 kg/m2 SpO2 97% HEENT exam: Normocephalic, atraumatic. Pupils are equally round and reactive to light. Neck is supple without adenopathy or thyromegaly. Lungs exam: faint crackles at the left base, with decreased air movement Cardiovascular exam: Regular rate and rhythm without murmurs, rubs, or gallops. Abdomen exam: Obese, soft, non-tender. Extremities exam: Mild digital clubbing, no edema. Neuro: Alert and oriented x 4 , normal mood and affect, moves all extremities well. Data:?? Pulmonary function studies: Pulmonary function studies, ordered and reviewed by me, show: FVC of 2.03 liters, 58% of predicted FEV1 of 1.45 liters, 53 % of predicted FEV1/FVC ratio 90% predicted Consistent with weakness, restriction, or poor effort but normal expiratory airflow. Imaging: I personally reviewed the patients CXR from March 2012, which shows increased interstitial markings and mild patchy opacities in a diffuse pattern. Impression and Plan:?? This is a 51-year-old woman with longstanding asthma, who presents after an acute illness in March, at which time she had an abnormal chest x-ray with interstitial changes and profound hypoxia. At this point, she appears significantly improved from a clinical standpoint. However, she continues to have crackles on exam and clubbing, which she feels has developed over the past year or so. She also has a significantly-abnormal screening spirometry today, raising a concern vera underlying interstitial lung disease as a possibility. Her recent symptoms could also represent a complication of her asthma such as allergic bronchopulmonary aspergillosis versus the possibility of Churg-Ayw syndrome or similar underlying disease process. The differential diagnosis would also include chronic eosinophilic pneumonia. As an initial step, I would like to have her have full pulmonary function studies to evaluate whether or not she truly has restriction and if so to what degree and also to assess her diffusing capacity. It does appear that at least her hypoxia has resolved, and certainly her 6-minute walk distance has improved drastically from her hospitalization. I will schedule her for a CT scan of the chest in the next 1 to 2 weeks again to evaluate for underlying parenchymal lung disease. I will follow up with the patient once these studies are obtained and will make further recommendations at that time. Thank you for the opportunity to participate in the care of Ms Viera. Please do not hesitate to contact me with any questions or concerns. Jeanette Virk MD Pulmonary Attending ? cc: ?Jean Munoz MD * Nakita Esteban, RT - 06/08/2012 0958 EDT Name: Liset Viera Date of : 1960 Date: 06/08/2012 Pulmonary Function Lab 6 MINUTE WALK TEST Indication/Diagnosis: ALEJANDRE Pre/Resting HR: 72 Pre/Resting O2 Sat: 98 % Pre/Resting ROBIN: 2 Oxygen Used?: No Post/Recovery HR: 72 Post/Recovery O2 Sat: 97 % Post/Recovery: 2 Maximal ROBIN: 3 Post Oxygen liter/min: N/A Walked without assistance. Standard finger probe used. TIME HR Sat 02 liter/min COMMENTS 30 sec 59 98 0 LPM 1 min 64 07 0 LPM 1 min/30 sec 56 97 0 LPM 2 min 70 96 0 LPM 2 min/30 sec 57 96 0 LPM 3 min 58 95 0 LPM 3 min/30 sec 60 96 0 LPM 4 min 60 96 0 LPM 4 min/30 sec 62 95 0 LPM 5 min 62 96 0 LPM 5 min/30 sec 60 97 0 LPM 6 min 0 LPM Distance walked: 960 feet. Test performed by: RT Mary Date: 06/08/2012 Time: 9:58 Pager/Contact No.: [phone] COMMENTS Normal oxygen saturation on room air at rest. No significant desaturation with exercise. Reduced walk distance of 960 feet. Significant improvement in oxygenation and walk distance compared to prior testing. MD Signature: Jeanette Virk MD Date: 06/09/2012 Time: 13:22 * Jailene Martinez - 06/08/2012 0838 EDT Testing was performed and recorded in [employer]. See complete report in scanned documents. documented in this encounter Procedure Notes * LATENT PRINT EXAMINER, SCAN 2 - 06/13/2012 1013 EDTAssociated Order(s): PULMONARY FUNCTION LAB REPORT - SCANNED * LATENT PRINT EXAMINER, SCAN 2 - 06/11/2012 0241 EDTAssociated Order(s): ORDERS - SCANNED documented in this encounter Plan of Treatment Upcoming Encounters Date Type Department Care Team (Late st Contact Info) Description 06/29/2024 14:15 EDT Office Visit [facility] [address] [place], [place] [id number] Jean Munoz MD [address] [place] [phone] documented as of this encounter Procedures Procedure Name Priority Date/Time Associated Diagnosis Comments CT CHEST WO CONTRAST 06/15/2012 13:56 EDT PULMONARY FUNCTION REPORT - SCANNED 06/13/2012 10:13 EDT ORDERS - SCANNED 06/11/2012 2:41 EDT documented in this encounter Results * CT CHEST WO CONTRAST (06/15/2012 13:56 EDT) Anatomical Region Laterality Modality Other 06/15/2012 13:5 6 EDT 06/15/2012 15:41 EDT Narrative 06/15/2012 15:[address] CHEST WO/CONTRAST ??Jun 15, 2012 01:56:00 PM Signs and Symptoms/Comments: ??793.19-OTHER NONSPECIFIC ABNORMAL FINDING OF LUNG [id number]-GVM-4-CM 799.08-THYDMWVJQ-[id number]-9-CM; crackles, hypoxia, restriction on pfts pulmonary function testing, aurelio, 12,tc Comparison: Chest radiograph April 05, 2012. Technique: A single breath-hold helical CT acquisition was performed through the chest on a multidetector-row scanner with a reconstructed slice thickness of 3 mm and retrospectively reconstructed 0.9 mm thick sections with 0.45 mm overlapping intervals. ??The scans were obtained from the lung apices through the bases without IV contrast. Scans were reviewed on a dedicated PACS workstation for analysis. Findings: No axillary or supraclavicular lymphadenopathy is present. There is no mediastinal lymphadenopathy. The cardiac chambers are normal in size. The branching pattern of the great vessels is normal. There is no pericardial effusion. There is extensive centrilobular and paraseptal emphysema involving both upper lobes. Mild scarring is present at both lung apices. There is mild, diffuse airways thickening. No consolidation or mosaic perfusion is present. There is no pleural effusion. No concerning lytic or blastic osseous lesions are identified. There has been prior anterior cervical fusion involving the lower cervical spine, partially visualized. Numerous surgical clips near the gastroesophageal junction are consistent with prior Aspen fundoplication. Impression: 1. Extensive centrilobular and paraseptal emphysema involving both upper lobes. 2. Diffuse mild airways thickening 3. No evidence of fibrosis. I have personally reviewed the images and the above interpretation and agree with the findings. Procedure Note Jean Pierre Nieto MD - 06/15/2012 CT CHEST WO/CONTRAST Jun 15, 2012 01:56:00 PM Signs and Symptoms/Comments: 793.19-OTHER NONSPECIFIC ABNORMAL FINDING OF LUNG CLSMX-QXU-7-CM 799.42-[id number]-9-CM; crackles, hypoxia, restriction on pfts pulmonary function testing, aurelio, 12,tc Comparison: Chest radiograph April 05, 2012. Technique: A single breath-hold helical CT acquisition was performed through the chest on a multidetector-row scanner with a reconstructed slice thickness of 3 mm and retrospectively reconstructed 0.9 mm thick sections with 0.45 mm overlapping intervals. The scans were obtained from the lung apices through the bases without IV contrast. Scans were reviewed on a dedicated PACS workstation for analysis. Findings: No axillary or supraclavicular lymphadenopathy is present. There is no mediastinal lymphadenopathy. The cardiac chambers are normal in size. The branching pattern of the great vessels is normal. There is no pericardial effusion. There is extensive centrilobular and paraseptal emphysema involving both upper lobes. Mild scarring is present at both lung apices. There is mild, diffuse airways thickening. No consolidation or mosaic perfusion is present. There is no pleural effusion. No concerning lytic or blastic osseous lesions are identified. There has been prior anterior cervical fusion involving the lower cervical spine, partially visualized. Numerous surgical clips near the gastroesophageal junction are consistent with prior Aspen fundoplication. Impression: 1. Extensive centrilobular and paraseptal emphysema involving both upper lobes. 2. Diffuse mild airways thickening 3. No evidence of fibrosis. I have personally reviewed the images and the above interpretation and agree with the findings. Jeanette Virk MD IMG CT O RDERABLES * PULMONARY FUNCTION LAB REPORT - SCANNED (06/13/2012 10:13 EDT) 06/13/2012 10:1 3 EDT Narrative 06/13/2012 10:19 EDT Procedure Note LATENT PRINT EXAMINER, SCAN 2 - 06/13/2012 10:13 EDT Scan 2 Carton Forming Machine Operator PROCEDURE/MINOR GURU GICAL ORDERABLES * ORDERS - SCANNED (06/11/2012 2:41 EDT) 06/11/2012 2:41 EDT Narrative 06/11/2012 3:08 EDT Procedure Note LATENT PRINT EXAMINER, SCAN 2 - 06/11/2012 2:41 EDT Scan 2 Carton Forming Machine Operator ADMISSION ORDERABLE S documented in this encounter Visit Diagnoses Diagnosis Abnormal CXR Other nonspecific abnormal finding of [...] Discontinue Reason Start Date End Da te lorazepam (ATIVAN) 0.5 mg tabletIndications:Anxi ety Take 1 Tab by mouth every 6 hours as needed (anxiety). Patient Stopped Taking 04/11/2012 06/08/2012 documented as of this encounter Orders PFT Count Last Ordered Date First Orde red Date DIFFUSING CAPACITY (DLCO) 1 06/08/2012 LUNG VOLUMES (TLC,RV,FRC/TGV,SVC,RAW) 1 SPIROMETRY WITH BRONCHODILATOR 1 06/08/2012 documented in this encounter Care Teams Alliances Consultant Relationship Specialty Start Date End Date Jean Munoz MD [address] [place] [phone] PCP - General 12/31/08 Manny Rizzo MD [address] [place] [phone] 04/20/10 documented as of this encounter
--- OUTSIDE RECORDS SUMMARY | 2024-06-10 07:30 | XMS_ITS | Encounter Summary ---
Author Organization [facility] Address [address] [place] [address] Care Team Providers Care Slab Puller Name Role Phone Jean Munoz MD Primary Care Provider Manny Rizzo MD Unavailable Reason for Visit * Reason Onset Date Comments Medications Refill 09/16/2012 Encounter Details Date Type Department Care Team (Late st Contact Info) Description 09/16/[address] [facility] [address] [place], [place] [phone] Jean Munoz MD [address] [place] [phone] Medications Refill Social History Tobacco [...] Da te sumatriptan (IMITREX) 50 mg tablet Take 1 Tab by mouth once as needed for Migraine for 1 dose. 9 Each 2 09/19/2012 02/08/2013 documented in this encounter Miscellaneous Notes * Telephone Encounter - Jean Munoz MD - 09/19/2012 1120 EST escript done, please notify patient, thanks * Telephone Encounter - Ra Pope - 09/16/2012 1013 EST Medication Requested - Sumatriptan 50mg Last Refill Date - 05.08.12 Last Visit Date - 08.29.12 Next Visit Date - 09.29.12 Is patient out of medication? Yes documented in this encounter Plan of Treatment Upcoming Encounters Date Type Department Care Team (Late st Contact Info) Description 06/29/2024 14:[address] [facility] [address] [place] [address] Jean Munoz MD [address] [place] [phone] documented as of this encounter Visit Diagnoses Not on filedocumented in this encounter Discontinued Medications Medication Sig Discontinue Reason Start Date End Da te sumatriptan (IMITREX) 50 mg tablet TAKE 1 TABLET BY MOUTH ONCE NEEDED FOR MIGRAINE FOR 1 DOSE Reorder 05/08/2012 09/16/2012 documented as of this encounter Care Teams Slab Puller Relationship Specialty Start Date End Date Jean Munoz MD [address] [place] [phone] PCP - General 12/31/08 Manny Rizzo MD [address] [place] [phone] 04/20/10 documented as of this encounter
--- OUTSIDE RECORDS SUMMARY | 2024-06-10 07:30 | XMS_ITS | Encounter Summary ---
Author Organization [facility] Address [address] [place] [address] Care Team Providers Care Gas Appliance Adjuster Name Role Phone Jean Munoz MD Primary Care Provider Manny Rizzo MD Unavailable Encounter Details Date Type Department Care Team (Late st Contact Info) Description 06/15/2012 13:33 EDT - 06/15/2012 23:59 EDT Hospital Encounter [facility] [address] [place] [address] Jeanette Virk MD [address] [facility], [address] [place] [address] Discharge Disposition: Auto Discharge Social History Tobacco [...] 4 12/09/2011 11/24/2012 pregabalin (LYRICA) 150 mg capsuleIndications:[employer] Analyst majo knee pain Take 1 Cap by [...] Upcoming Encounters Date Type Department Care Team ([facility] st Contact Info) Description 06/29/2024 14:15 EDT Office Visit [facility] [address] [place] [address] Jean Munoz MD [address] [place] [phone] documented as of this encounter Visit Diagnoses Not on filedocumented in this encounter Care Teams Gas Appliance Adjuster Relationship Specialty Start Date End Date Jean Munoz MD [address] [place] [phone] PCP - General 12/31/08 [place] [address] [place] [phone] 04/20/10 documented as of this encounter
--- OUTSIDE RECORDS SUMMARY | 2024-06-10 07:30 | XMS_ITS | Encounter Summary ---
Author Organization [facility] Address [address] [place] [address] Care Team Providers Care Longwall Machine Operator Helper Name Role Phone Jean Munoz MD Primary Care Provider Manny Rizzo MD Unavailable Reason for Referral * Consult (Routine/Next Available) - Closed Specialty Diagnoses / Procedures [facility] Referred To Contact Pain Medicine Diagnoses Chronic back pain Jean Munoz MD [address] [place] [phone] [facility] [address] [place] [address] Referral ID Status Reason Start Date Expiration Date V isits Requested Visits Authorized [id number] Closed Specialty Services Required 08/29/2012 1 1 Question Answer Reason for Request: chronic back pain, ?repeat injection Reason for Visit * Reason Comments Medication Management Encounter Details Date Type Department Care Team (Late st Contact Info) Description 08/29/2012 14:00 EST Office Visit [facility] Medicine [facility] [address] [place] [address] Jean Munoz MD [address] [place] [phone] Left knee pain (Primary Dx); Cervicalgia; Chronic back pain; Insomnia Discharge Disposition: Auto Discharge Social History [...] Sign Reading Time Taken Comments Blood Pressure 102/66 08/29/2012 1401 EST Pulse 72 08/29/2012 1401 EST Temperature 36.4 ??C (97.5 ??F) 08/29/2012 1401 EST Respiratory Rate - - Oxygen Saturation - - Inhaled Oxygen Concentration - - Weight 92.1 kg (203 lb) 08/29/2012 1401 EST Height 162.6 cm (5' 4) 08/29/2012 1401 EST Body Mass Index 34.84 08/29/2012 1401 EST documented in this encounter Functional Status [...] for Pain. 112 Tab 0 08/29/2012 09/29/2012 pregabalin (LYRICA) 150 mg capsuleIndications:Chroni c back pain Take 1 Cap by mouth 3 times daily. 90 Each 1 08/29/2012 09/29/2012 zolpidem (AMBIEN) 10 mg tabletIndications:Insomni a Take 1 Tab by mouth at bedtime as needed for Sleep. 30 Each 2 08/29/2012 11/24/2012 documented in this encounter Discharge Disposition Disposition Code Departure Means Destination Auto Discharge documented in this encounter Progress Notes * Jean Munoz MD - 08/29/2012 2339 EST Subjective: Patient ID: Liset Viera is an 51 y.o. female. Chief Complaint Patient presents with ??? Medication Management HPI Left knee pain States will have injection this Wednesday with Dr Glynn, still painful, intermittent swelling, hurts at night Asthma Breathing has been pretty good, some wheezing intermittently Cervicalgia as good as its gonna get Chronic back pain still gives me problems Wants to F/U with Pain Clinic, ?another injection Tobacco dependence syndrome Quit 1 year ago Patient Active Problem List Diagnoses ??? Severe [...] Medication Sig Dispense Refill ??? methylphenidate (RITALIN;METHYLIN) 10 mg tablet Take one tab in the afternoon for narcolepsy 30Tab 0 ??? zolpidem (AMBIEN) 10 mg tablet Take 1 Tab by mouth at bedtime as needed for Sleep. 30 Each 2 ??? pregabalin (LYRICA) 150 mg capsule Take 1 Cap by mouth 3 times daily. 90 Each 1 ??? SINGULAIR 10 mg tablet TAKE ONE [...] rarely ROS - See HPI Objective: BP 102/66 Pulse 72 Temp(Src) 36.4 ??C (97.5 ??F) (Oral) Ht 162.6 cm (64) Wt 92.08 kg (203 lb) BMI 34.84 kg/m2 Physical Exam Assessment: Plan: Liset was seen today for medication management. Diagnoses and associated orders for this visit: Left knee pain - hydrocodone-acetaminophen (LORTAB) 5-500 mg tablet; Take 1 Tab by mouth every 6 hours as needed for Pain. F/U Dr Glynn Review meds at next visit Cervicalgia stbale Chronic back pain - Renew pregabalin (LYRICA) 150 mg capsule; Take 1 Cap by mouth 3 times daily. - Ambulatory Consult Pain Clinic Insomnia - Renew zolpidem (AMBIEN) 10 mg tablet; Take 1 Tab by mouth at bedtime as needed for Sleep. Tobacco abuse in remission Patient Education Topic: as above Method: Verbal Taught to: Patient Barriers: None Outcomes: Verbalized understanding Return in 4 weeks (on 09/26/2012) for SERA. documented in this encounter Miscellaneous Notes * Assessment & Plan Note - Jean Munoz MD - 08/29/2012 5956 EST Associated Problem(s): Tobacco dependence in remission Quit 1 year ago * Assessment & Plan Note - Jean Munoz MD - 08/29/2012 1417 EST Associated Problem(s): Chronic back pain still gives me problems Wants to F/U with Pain Clinic, ?another injection * Assessment & Plan Note - Jean Munoz MD - 08/29/2012 1415 EST Associated Problem(s): Cervicalgia as good as its gonna get * Assessment & Plan Note - Jean Munoz MD - 08/29/2012 1415 EST Associated Problem(s): Asthma (Resolved 03/03/2017) Breathing has been pretty good, some wheezing intermittently * Assessment & Plan Note - Jean Munoz MD - 08/29/2012 1414 EST Associated Problem(s): Left knee pain States will have injection this Wednesday with Dr Glynn, still painful, intermittent swelling, hurts at night documented in this encounter Plan of Treatment Upcoming Encounters Date Type Department Care Team (Late st Contact Info) Description 06/29/2024 14:15 EDT Office Visit [facility] Medicine [address] [address] Jean Munoz MD [address] [place] [phone] Scheduled Referrals Name Type Priority Associated Diagnoses Orde r Schedule AMB CONSULT PAIN CLINIC Outpatient Referral Routine Chronic back pain Ordered: 08/29/2012 documented as of this encounter Visit Diagnoses Diagnosis Left knee pain- Primary Pain in joint, lower leg Cervicalgia Chronic back pain Backache, unspecified Insomnia Insomnia, unspecified Screening for osteoporosis- Primary [...] Start Date End Da te hydrocodone-acetaminophe n (LORTAB) 10-500 mg per tablet Take 1-2 Tabs by mouth every 6 hours as needed for Pain. Therapy completed 07/04/2012 08/29/2012 zolpidem (AMBIEN) 10 mg tabletIndications:Insomn ia Take 1 Tab by mouth at bedtime as needed for Sleep. Reorder 05/26/2012 08/29/2012 pregabalin (LYRICA) 150 mg capsuleIndications:Chron ic knee pain Take 1 Cap by mouth 3 times daily. Reorder 06/24/2012 08/29/2012 hydrocodone-acetaminophe n (LORTAB;VICODIN) 5-500 mg tabletIndications:Chroni c knee pain Take 1 Tab by mouth every 6 hours as needed for Pain. Reorder 08/03/2012 08/29/2012 documented as of this encounter Care Teams Longwall Machine Operator Helper Relationship Specialty Start Date End Date Jean Munoz MD [address] [place] [phone] PCP - General 12/31/08 Manny Rizzo MD [address] [place] [phone] 04/20/10 documented as of this encounter
--- OUTSIDE RECORDS SUMMARY | 2024-06-10 07:30 | XMS_ITS | Encounter Summary ---
Author Organization [facility] Address [address] [place] [address] Care Team Providers Care Tube Washer Name Role Phone Jean Munoz MD Primary Care Provider Manny Rizzo MD Unavailable Reason for Referral * (Routine/Next Available) - Closed Specialty Diagnoses / Procedures Referred By Alex weldon Referred To Contact Diagnoses Emphysema Procedures DIFFUSING CAPACITY (DLCO) Jeanette Virk MD [address] [phone] Referral ID Status Reason Start Date Expiration Date Visits Re quested Visits Authorized [id number] Closed 06/27/2012 1 1 * (Routine/Next Available) - Closed Specialty Diagnoses / Procedures Referred By Alex weldon Referred To Contact Diagnoses Emphysema Procedures SPIROMETRY Jeanette Virk MD [address] [phone] Referral ID Status Reason Start Date Expiration Date Visits Re quested Visits Authorized [id number] Closed 06/27/2012 1 1 Reason for Visit * Reason Onset Date Comments Results 06/15/2012 Returning Call 06/15/2012 Encounter Details Date Type Department Care Team (Late st Contact Info) Description 06/15/2012 Telephone [facility] Pulmonology & Critical Care - [address] [phone] Jeanette Virk MD [address] [place] [address], [address] [place] [address] Results; Returning Call Social History Tobacco Use Types [...] directed daily. 1 Cap 11 06/27/2012 11/24/2012 documented in this encounter Miscellaneous Notes * Telephone Encounter - Jeanette Virk MD - 06/27/[address] results and explained emphysema. Would recommend trial of Spiriva to see if this can further improve her symptoms, and she would like to try this. With regards to surgery, she is at someelevated risk of complications given her emphysema, possible asthma, and reduced lung function but I do not think the risk is prohibitive. I encouraged her to continue on her chronic pulmonary medications, and to get out of bed as soon as possible after surgery, to reduce the risk of complications.I will set her up with a 3-4 month follow up to assess response to medication change. Jeanette Virk MD * Telephone Encounter - Saritha Freeman - 06/27/2012 1111 EDT Pt is having surgery on her ankle 07/04 and needs a call from to be cleared for surgery. Thanks * Telephone Encounter - Jeanette Virk MD - 06/21/2012 1547 EDT Attempted to call patient again to discuss CT scan results, which showed significant emphysema. Aniceto have an approximate 70 pack year smoking history. I was unable to reach her again, and will beout of town for the rest of the week. I will try to reach her again next week to discuss possibility of adding Spiriva to her regimen, and to schedule follow up. There was mild scarring, but no evidence of fibrosis on the scan. \ Jeanette Virk MD * Telephone Encounter - Jeanette Virk MD - 06/15/2012 1554 EDT Left message. Will try to call back later this week. Jeanette Virk MD documented in this encounter Plan of Treatment Upcoming Encounters Date Type Department Care Team (Late st Contact Info) Description 06/29/2024 14:15 EDT Office Visit [facility] [address] [place] [address] Jean Munoz MD [address] [place] [phone] documented as of this encounter Visit Diagnoses Diagnosis Emphysema- Primary Other emphysema Screening for osteoporosis- Primary Special screening for osteoporosis Primary narcolepsy without cataplexy Chronic pain syndrome Chronic low back pain Lumbago Chronic use of opiate for therapeutic purpose Pain medication agreement Encounter for long-term (current) use of other medications Screen for colon cancer Special screening for malignant neoplasms, colon documented in this encounter Orders PFT Count Last Ordered Date First Orde red Date DIFFUSING CAPACITY (DLCO) 1 06/27/2012 SPIROMETRY 1 06/27/2012 documented in this encounter Care Teams Tube Washer Relationship Specialty Start Date End Date Jean Munoz MD [address] [place] [phone] PCP - General 12/31/08 Manny Rizzo MD [address] [place] [address] 04/20/10 documented as of this encounter
--- OUTSIDE RECORDS SUMMARY | 2024-06-10 07:30 | XMS_ITS | Encounter Summary ---
Author Organization [facility] Address [address] [place] [address] Care Team Providers Care Dental Hygienist Name Role Phone Jean Munoz MD Primary Care Provider Manny Rizzo MD Unavailable Reason for Visit * Reason Comments Insomnia Encounter Details Date Type Department Care Team (Late st Contact Info) Description 08/30/2012 13:15 EST Office Visit [facility] - [address] [place], [place] [address] Celia Castro, PhD [address] [facility] [address] [place] [address] Persistent disorder of initiating or maintaining sleep; Major depressive disorder, recurrent episode, moderate (HCC-CMS); Anxiety state, unspecified Social History Tobacco Use Types Packs/Day Years [...] as of this encounter Progress Notes * Celia Castro, PhD - 08/30/2012 3048 EST Sleep Center Psychology Follow Up SUBJECTIVE: Reported sleep is the same. Has tried calling previous therapist, without getting a response. OBJECTIVE: Arrived: promptly Session length: 45 minutes. Sleep Patterns: Changes in Sleep Routine: n/a Sleep Log: instructed patient how to complete Insights from log: na Medical / Physical Complaints: no change Medication Changes: None reported. Education: Topics: sleep log/role of feedback, relaxation training and sleep cycles Methods: demonstration, verbal and provided relaxation CD to patient Taught to: patient Barriers: none Outcomes: verbalized understanding and needs practice ASSESSMENT: Diagnostic Impression: 1. Persistent disorder of initiating or maintaining sleep 2. Major depressive disorder, recurrent episode, moderate 3. Anxiety state, unspecified Progress: Patient reported sleep has remained the same Treatment Process: fully engaged Obstacles to treatment:n/a Rationale for frequency and duration of therapy: cognitive / behavioral patterns continue to impairsleep and symptoms of anxiety continue to impair sleep Recommendations: Complete Sleep Log daily to assist in identifying patterns and increasing awareness. Relaxation practice when awake during sleep window. .Strengthen associations between sleep time (i.e., wear pajamas only close to bedtime) and wake time for stimulus control. PLAN: continue treatment, follow up in approximately 1-2 weeks. Left message for Piter Renetta with her phone number, as she requested, and encouraged her to contact the recycle coordinator at [facility]. documented in this encounter Plan of Treatment Upcoming Encounters Date Type Department Care Team (Late st Contact Info) Description 06/29/2024 14:15 EDT Office Visit [facility] [address] [place] [address] Jean Munoz MD [address] [place] [phone] documented as of this encounter Visit Diagnoses Diagnosis Persistent disorder of initiating or maintaining sleep Major depressive disorder, recurrent episode, moderate ([facility]) Major depressive disorder, recurrent episode, moderate Anxiety state, unspecified Screening for osteoporosis- Primary Special screening for osteoporosis Primary narcolepsy without cataplexy Chronic pain syndrome Chronic low back pain Lumbago Chronic use of opiate for therapeutic purpose Pain medication agreement Encounter for long-term (current) use of other medications Screen for colon cancer Special screening for malignant neoplasms, colon documented in this encounter Care Teams Dental Hygienist Relationship Specialty Start Date End Date Jean Munoz MD [address] [place] [phone] PCP - General 12/31/08 Manny Rizzo MD [address] [place] [address] 04/20/10 documented as of this encounter
--- OUTSIDE RECORDS SUMMARY | 2024-06-10 07:30 | XMS_ITS | Encounter Summary ---
Author Organization [facility] Address [address] [place] [address] Care Team Providers Care Road Grader Name Role Phone Jean Munoz MD Primary Care Provider Manny Rizzo MD Unavailable Reason for Visit * Reason Comments Other Encounter Details Date Type Department Care Team (Late st Contact Info) Description 07/16/2012 [facility] [address] [place] [address] Jean Munoz MD [address] [place] [phone] Other Social History Tobacco Use Types [...] AT BEDTIME 30 Each 2 07/16/2012 10/18/2012 documented in this encounter Miscellaneous Notes * Telephone Encounter - Madelaine Nava - 07/18/2012 1014 EST Name of Medication Singulair Last Refill Date 07/16/2012 Last Visit Date Next Visit Date 08/03/2012 Is patient out of medication? Yes Medication was just ordered on 07/16/2012 documented in this encounter Plan of Treatment Upcoming Encounters Date Type Department Care Team (Late st Contact Info) Description 06/29/2024 14:[address] [facility] [address] [place] [address] Jean Munoz MD [address] [place] [phone] documented as of this encounter Visit Diagnoses Not on filedocumented in this encounter Discontinued Medications Medication Sig Discontinue Reason Start Date End Da te montelukast (SINGULAIR) 10 mg tablet Take 1 Tab by mouth at bedtime. Reorder 03/31/2012 07/16/2012 documented as of this encounter Care Teams Road Grader Relationship Specialty Start Date End Date Jean Munoz MD [address] [place] [phone] PCP - General 12/31/08 Manny Rizzo MD [address] [place] [phone] 04/20/10 documented as of this encounter
--- OUTSIDE RECORDS SUMMARY | 2024-06-10 07:30 | XMS_ITS | Encounter Summary ---
Author Organization [facility] Address [address] [place] [address] Care Team Providers Care Organic Gardening Teacher Name Role Phone Jean Munoz MD Primary Care Provider Manny Rizzo MD Unavailable Reason for Visit * Reason Comments Knee Pain left knee pain Encounter Details Date Type Department Care Team (Late st Contact Info) Description 08/31/2012 10:45 EST Office Visit [facility] Sports Medicine Program - [address] [phone] Bear Glynn MD [address] [place] [phone] Left knee pain (Primary Dx) Social [...] Progress Notes * Bear Glynn MD - 09/25/2012 1112 EST PROBLEM: Left knee pain. SUBJECTIVE: Ms Viera returns today for reevaluation. She continues to have pain in her left kneeand she points to the area about the pes anserinus. At this point, she feels that given her failureto respond to conservative treatment, she would like to proceed with an injection. OBJECTIVE: Examination of the left knee shows no palpable effusion. There is exquisite tenderness over the area of the pes with minor soft tissue swelling in that region. Risks, benefits and alternatives were discussed with [...] confirmed prior to the procedure. The left pes anserinus was injected with a mixture of 5 mL of Kenalog, 10 mg per mL and 5 mL of 0.5% Marcaine without epinephrine. ASSESSMENT: Persistent pain/contusion left knee in the area of the pes anserinus. PLAN: We will see how Ms Viera response to her injection. I will see her back if her symptoms donot improve. documented in this encounter Plan of Treatment Upcoming Encounters Date Type Department Care Team (Late st Contact Info) Description 06/29/2024 14:15 EDT Office Visit [facility] [address] [place] [address] Jean Munoz MD [address] [place] [phone] documented as of this encounter [...] colon documented in this encounter Care Teams Organic Gardening Teacher Relationship Specialty Start Date End Date Jean Munoz MD [address] [place] [phone] PCP - General 12/31/08 Manny Rizzo MD [address] [place] [phone] 04/20/10 documented as of this encounter
--- OUTSIDE RECORDS SUMMARY | 2024-06-10 07:30 | XMS_ITS | Encounter Summary ---
Author Organization [facility] Address [address] [place] [address] Care Team Providers Care Box Blank Machine Feeder Name Role Phone Jean Munoz MD Primary Care Provider Manny Rizzo MD Unavailable Reason for Visit * Reason Onset Date Comments Prior Auth, Medication 07/11/2012 restasis Encounter Details Date Type Department Care Team (Late st Contact Info) Description 07/11/2012 Telephone [facility] Ophthalmology - [address] [phone] Giovanni Rodriguez MD [address] [facility], [address] [place] [address] Prior Auth, Medication (restasis) Social History Tobacco Use Types Packs/Day Years [...] Miscellaneous Notes * Telephone Encounter - Juliette Valdez, RN - 07/11/2012 1440 EDT I called [place] Medicaid ([facility] clinical call center) and spoke with Karin. Per Karin PA has been approved X1 year. I called [facility] and let Antionette know that the PA is all set on this restasis eye drop. She will reprocess this claim in a few minutes. * Telephone Encounter - Jaycee Bennett - 07/11/2012 1317 EDT [place] [phone] [id number] documented in this encounter Plan of Treatment Upcoming Encounters Date Type Department Care Team (Late st Contact Info) Description 06/29/2024 14:15 EDT Office Visit [facility] Medicine [facility] [address] [place], [place] [phone] Jean Munoz MD [address] [place] [phone] documented as of this encounter Visit Diagnoses Not on filedocumented in this encounter Care Teams Box Blank Machine Feeder Relationship Specialty Start Date End Date Jean Munoz MD [address] [place] [phone] PCP - General 12/31/08 Manny Rizzo MD [address] [place] [address] 04/20/10 documented as of this encounter
--- OUTSIDE RECORDS SUMMARY | 2024-06-10 07:30 | XMS_ITS | Encounter Summary ---
Author Organization [facility] Address [address] [place] [address] Care Team Providers Care Fur Cleaner Name Role Phone Jean Munoz MD Primary Care Provider Manny Rizzo MD Unavailable Reason for Visit * Reason Onset Date Comments Medications Refill 09/27/2012 Encounter Details Date Type Department Care Team (Late st Contact Info) Description 09/27/2012 Refill [facility] Sleep Program - [address] [address] Tiana Bacon [address] [place] [phone] Medications Refill Social History Tobacco Use [...] for narcolepsy 30 Tab 0 10/01/2012 10/06/2012 methylphenidate (RITALIN SR; METADATE ER; METHYLIN ER) 20 mg SR tablet Brand only. Take 2 tabs in the morning for narcolepsy. 60 Tab 0 10/01/2012 10/26/2012 documented in this encounter Miscellaneous Notes * Telephone Encounter - Corrina Ac RN - 09/28/2012 1139 EST Called pt and let her know her ritalin prescriptions ready [facility]. * Telephone Encounter - Duy Booth - 09/27/2012 1426 EST Calling to request refills of Ritalin SR and Ritalin to be picked up. Please call when ready. documented in this encounter Plan of Treatment Upcoming Encounters Date Type Department Care Team (Late st Contact Info) Description 06/29/2024 14:15 EDT Office Visit [facility] Medicine [facility] [address] [place], [place] [phone] Jean Munoz MD [address] [place] [phone] documented as of this encounter Visit Diagnoses Not on filedocumented in this encounter Discontinued Medications Medication Sig Discontinue Reason Start Date End Da te methylphenidate (RITALIN SR; METADATE ER; METHYLIN ER) 20 mg SR tablet Brand only. Take 2 tabs in the morning for narcolepsy. Reorder 09/01/2012 09/27/2012 methylphenidate (RITALIN;METHYLIN) 10 mg tablet Take one tab in the afternoon for narcolepsy Reorder 09/01/2012 09/27/2012 documented as of this encounter Care Teams Fur Cleaner Relationship Specialty Start Date End Date Jean Munoz MD [address] [place] [phone] PCP - General 12/31/08 Manny Rizzo MD [address] [place] [phone] 04/20/10 documented as of this encounter
--- OUTSIDE RECORDS SUMMARY | 2024-06-10 07:30 | XMS_ITS | Encounter Summary ---
Author Organization [facility] Address [address] [place] [address] Care Team Providers Care Armed Custom Protection Officer Name Role Phone Jean Munoz MD Primary Care Provider Manny Rizzo MD Unavailable Reason for Visit * Reason Onset Date Comments Orders (Non Pre-visit) 06/08/2012 d/c order for portable oxygen Encounter Details Date Type Department Care Team (Late st Contact Info) Description 06/08/2012 Telephone [facility] Pulmonology & Critical Care - [address] [address] Jeanette Virk MD [address] [facility] [address] [place] [address] Orders (Non Pre-visit) (d/c order for portable oxygen) Social History Tobacco Use Types Packs/Day Years [...] Telephone Encounter - Nakita Esteban RT - 06/08/2012 1229 EDT Discontinue portable oxygen only. Script faxed to [facility]. * Telephone Encounter - Amanda Moeller - 06/08/2012 1054 EDT [facility] asking if we are discontinuing all her O2 or just the portable O2 documented in this encounter Plan of Treatment Upcoming Encounters Date Type Department Care Team (Late st Contact Info) Description 06/29/2024 14:15 EDT Office Visit [facility] [address] [place], [place] [phone] Jean Munoz MD [address] [place] [phone] documented as of this encounter Visit Diagnoses Not on filedocumented in this encounter Care Teams Armed Custom Protection Officer Relationship Specialty Start Date End Date Jean Munoz MD [address] [place] [phone] PCP - General 12/31/08 Manny Rizzo MD [address] [place] [address] 04/20/10 documented as of this encounter
--- OUTSIDE RECORDS SUMMARY | 2024-06-10 07:30 | XMS_ITS | Encounter Summary ---
Author Organization [facility] Address [address] [place] [address] Care Team Providers Care High Pressure Kettle Operator Name Role Phone Jean Munoz MD Primary Care Provider Manny Rizzo MD Unavailable Reason for Visit * Reason Comments Insomnia Encounter Details Date Type Department Care Team (Late st Contact Info) Description 09/26/2012 13:45 EST Office Visit [facility] Sleep Program - [address] [place] [address] [place], [place] [address] Celia Castro, PhD [address] [place] [address] Persistent disorder of initiating or maintaining sleep (Primary Dx); Generalized anxiety disorder Discharge Disposition: Auto Discharge Social History Tobacco [...] Progress Notes * Celia Castro, PhD - 09/26/2012 1429 EST Sleep Center Psychology Follow Up SUBJECTIVE: non-restorative / disrupted sleep. Described worries that interfere with her ability to remain asleep. Averaging 5-6 hours of sleep. OBJECTIVE: Arrived: promptly Session length: 40 minutes. Sleep Patterns: Changes in Sleep Routine: not watching tv in bedroom anymore Sleep Log: completed and forgot Insights from log: n/a Medical / Physical Complaints: Diagnosed with emphysema Medication Changes: None reported. See Prism. Education: Topics: cognitive restructuring and relaxation training Methods: demonstration and verbal Taught to: patient Barriers: none Outcomes: verbalized understanding and needs practice ASSESSMENT: Diagnostic Impression: 1. Persistent disorder of initiating or maintaining sleep 2. Generalized anxiety disorder Progress: Patient reported sleep has improved slightly. Anxiety prominent. Treatment Process: fully engaged Obstacles to treatment:symptoms of anxiety Rationale for frequency and duration of therapy: cognitive / behavioral patterns continue to impairsleep and symptoms of anxiety continue to impair sleep Recommendations: Complete Sleep Log daily to assist in identifying patterns and increasing awareness. Relaxation practice when awake during sleep window. Identify thought distortions related to sleepand insomnia and replace with more accurate thoughts. Repeat alternative statements we created in session 3 times during day. PLAN: continue treatment, follow up in approximately 2-3 weeks documented in this encounter Plan of Treatment Upcoming Encounters Date Type Department Care Team (Late st Contact Info) Description 06/29/2024 14:15 EDT Office Visit [facility] [place] [address] [place], [place] [phone] Jean Munoz MD [address] [place] [address] documented as of this encounter Visit Diagnoses Diagnosis Persistent disorder of initiating or maintaining sleep- Primary Generalized anxiety disorder Screening for osteoporosis- Primary Special screening for osteoporosis Primary narcolepsy without cataplexy Chronic pain syndrome Chronic low back pain Lumbago Chronic use of opiate for therapeutic purpose Pain medication agreement Encounter for long-term (current) use of other medications Screen for colon cancer Special screening for malignant neoplasms, colon documented in this encounter Care Teams High Pressure Kettle Operator Relationship Specialty Start Date End Date Jean Munoz MD [address] [place] [phone] PCP - General 12/31/08 Manny Rizzo MD [address] [place] [phone] 04/20/10 documented as of this encounter
--- OUTSIDE RECORDS SUMMARY | 2024-06-10 07:30 | XMS_ITS | Encounter Summary ---
Author Organization [facility] Address [address] [place] [address] Care Team Providers Care Wheelabrator Operator Name Role Phone Jean Munoz MD Primary Care Provider Manny Rizzo MD Unavailable Reason for Referral * Radiology Services (Routine/Next Available) - Closed Specialty Diagnoses / Procedures [facility] Referred To Contact Diagnoses Pain in joint, ankle and foot Other complications due to other internal orthopedic device, implant, and graft Procedures ANKLE 3 OR MORE VIEWS Liu Tilley MD [address] [place] [phone] Referral ID Status Reason Start Date Expiration Date Visits Re quested Visits Authorized [id number] Closed 06/21/2012 1 1 Reason for Visit * Reason Comments Ankle Injury Right ankle fracture March 2010 Encounter Details Date Type Department Care Team (Latest Contact Info) Description 06/21/2012 13:30 EDT Office Visit [facility] Foot & Ankle Program - [place] [address] [place] [address] Liu Tilley MD [address] [place] [phone] Other complications due to other internal orthopedic device, implant, and graft (Primary Dx); Pain in joint, ankle and foot Discharge Disposition: Auto Discharge Social History Tobacco [...] - - Weight 93.9 kg (207 lb) 06/21/2012 1331 EDT Height 162.6 cm (5' 4) 06/21/2012 1331 EDT Body Mass Index 35.53 06/21/2012 1331 EDT documented in this encounter Functional Status Cognitive Status Response Date of Assessm ent Because of a physical, menta l, or emotional condition, do you have serious difficulty concentrating, remembering, or making decisions? (5 years old or older) Yes 04/05/2012 documented as of this encounter Discharge Disposition Disposition Code Departure Means Destination Auto Discharge documented in this encounter Progress Notes * Mirtha Velázquez LPN - 06/21/2012 1523 EDT Patient Education Topic: pre-op Method: Handout and Verbal Taught to: Patient Barriers: None Outcomes: independent Signature:Mirtha Velázquez LPN * Liu Tilley MD - 06/21/2012 1334 EDT NEW ANKLE PAIN Chief Complaint Patient presents with ??? Ankle Injury Right ankle fracture March 2010 SUBJECTIVE: Liset Viera comes in as a new patient today complaining of right ankle pain. She explains today that she fractured her ankle in 2009 while playing on a [employer]. She now has plates and screws in her ankle, put in by Dr. Craig Hawk. She is bothered by her hardware at this point and is here to look into having the hardware removed. There are days when it feels like the hardware wants to pop out. At those times she gets swelling and can hardly walk on that foot. Past Medical History Diagnosis Date ??? UTI [...] ??? Anxiety ??? Depression ??? Pneumonia 04/05/2012 Past Surgical History Procedure Date ??? Salpingectomy 1982 ectopic ??? Hysterectomy, vaginal menorrhagia ??? Shoulder arthroscopy 10/15 left, with acromioplasty ??? Gastric fundoplication 03/02/07 [place] ??? Cervical spine surgery 12/31/08 discectomy, fusion C4-7 Dr Dewitt ??? Colonoscopy 07/29/09 repeat ??? Ankle fracture surgery 04/01/10 left ankle ORIF [facility] ??? Cyst incision and drainage 09/17/10 left cheek ??? Fine needle aspiration 09/19/10 left cheek Current Outpatient Prescriptions Medication Sig Dispense Refill [...] ??? Motrin (Ibuprofen) Itching REVIEW OF SYSTEMS: Documented on the patient intake form. These were reviewed by me. Pertinent positives mentioned above. OBJECTIVE: Patient is in no acute distress, appears normal, mood and affect appropriate, alert and oriented x3. Good historian. Standing alignment: Alignment looks good. Nice arch. No significant swelling, no malalignment. Right sided posterior lateral scar from past surgery. Right Ankle: Skin: Some dry skin, no other changes. Pulses: nicely palpable. Sensation: Intact. Strength: Intact. Musculoskeletal: Ankle comes to neutral with knee extended. She has good plantarflexion. Hindfoot moves well. I can feel the hardware laterally. Left Ankle: Skin: Intact, no skin changes. Pulses: nicely palpable. Sensation: Intact. Strength: Intact. Musculoskeletal: Ankle comes to neutral with knee extended. IMAGING: X-rays: Three views of right ankle, weightbearing, obtained here today and independently reviewed by me show healed fracture. Lateral sided plate and lag screw and posterolateral plate over posterior malleolus. The anterior aspect of ankle has some narrowing and osteophytes. Central ankle looks good. Mortis is well aligned. Things are healed up well. ASSESSMENT AND PLAN: The patient is here today complaining of right ankle pain. She is s/p past ankle fracture with placement of plates and screws. She would like to have the hardware removed from her ankle. We can certainly remove Liset's hardware for her. 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 We discussed the procedure for hardware removal, as well as expected recovery time. She does want to go ahead with hardware removal and we will get her set up for that. The risks, benefits and potential complications of surgery were discussed in detail with the patient, along with expected course for recovery. We will have her meet with our surgical nurse to schedule surgery at her earliest convenience. [...] Office Visit [facility] [address] [place], [place] [phone] Jean Munoz MD [address] [place] [address] documented as of this encounter Procedures Procedure Name Priority Date/Time Associated Diagnosis Comments ANKLE 3 OR MORE VIEWS Routine 06/21/2012 13:57 EDT Pain in joint, ankle and foot Other complications due to other internal orthopedic device, implant, and graft documented in this encounter Results * ANKLE 3 OR MORE VIEWS (06/21/2012 13:57 EDT) Anatomical Region Laterality Modality Other 06/21/2012 13:5 7 EDT 06/21/2012 15:27 EDT Narrative 06/21/2012 15:27 EDT ANKLE 3 OR MORE VIEWS ??Jun 21, 2012 01:57:00 PM Clinical History/Comments: 719.47-PAIN IN JOINT, ANKLE AND FTUO-RAW-7-CM 996.78-COMPLICATION NEC, ORTH DEV EMO-PIU-5-CM; Right ankle pain - prior ORIF ankle - evaluate healing and hardware Comparisons: None available. Findings: 3 weight-bearing views of the right ankle were performed. Cysts there appears to be loosening and failure of the syndesmotic screw. It does not completely traverse the syndesmosis. Any longer. There is lucency surrounding the mid and distal aspects of the screw. This is breast appreciated on the AP view. Corticated bony fragments are present at the tips of the medial and lateral malleolus. I do not see a residual fracture lucency. Posttraumatic joint space narrowing and subchondral sclerosis is present. If there are outside films, these should be obtained and placed on our PACS system for the purposes of comparison. Impression: There appears to be hardware failure in what I believe represents the syndesmotic screw. Procedure Note 06/21/2012 ANKLE 3 OR MORE VIEWS Jun 21, 2012 01:57:00 PM Clinical History/Comments: 719.47-PAIN IN JOINT, ANKLE AND OGMI-JSL-4-CM 996.78-COMPLICATION NEC, ORTH DEV XHF-ASB-4-CM; Right ankle pain - prior ORIF ankle - evaluate healing and hardware Comparisons: None available. Findings: 3 weight-bearing views of the right ankle were performed. Cysts there appears to be loosening and failure of the syndesmotic screw. It does not completely traverse the syndesmosis. Any longer. There is lucency surrounding the mid and distal aspects of the screw. This is breast appreciated on the AP view. Corticated bony fragments are present at the tips of the medial and lateral malleolus. I do not see a residual fracture lucency. Posttraumatic joint space narrowing and subchondral sclerosis is present. If there are outside films, these should be obtained and placed on our PACS system for the purposes of comparison. Impression: There appears to be hardware failure in what I believe represents the syndesmotic screw. Liu Tilley MD IMG DIAGNOSTIC IM AGING ORDERABLES documented in this encounter Visit Diagnoses Diagnosis Other complications due to other internal orthopedic device, implant, and graft- Primary Pain in joint, ankle and foot Screening for osteoporosis- Primary Special screening for osteoporosis Primary narcolepsy without cataplexy Chronic pain syndrome Chronic low back pain Lumbago Chronic use of opiate for therapeutic purpose Pain medication agreement Encounter for long-term (current) use of other medications Screen for colon cancer Special screening for malignant neoplasms, colon documented in this encounter Care Teams Wheelabrator Operator Relationship Specialty Start Date End Date Jean Munoz MD [address] [place] [phone] PCP - General 12/31/08 Manny Rizzo MD [address] [place] [phone] 04/20/10 documented as of this encounter
--- OUTSIDE RECORDS SUMMARY | 2024-06-10 07:30 | XMS_ITS | Encounter Summary ---
Author Organization [facility] Address [address] [place] [address] Care Team Providers Care Librarian Head Name Role Phone Jean Munoz MD Primary Care Provider Manny Rizzo MD Unavailable Encounter Details Date Type Department Care Team (Late st Contact Info) Description 06/23/2012 Abstract [facility] Foot & Ankle Program - [address] [address] Josseline Nicholas, [place] [address] [place] [address] Social History Tobacco Use Types [...] Office Visit [facility] [address] [place], [place] [phone] Jean Munoz MD [address] [place] [phone] documented as of this encounter Visit Diagnoses Not on filedocumented in this encounter Care Teams Librarian Head Relationship Specialty Start Date End Date Jean Munoz MD [address] [place] [phone] PCP - General 12/31/08 Manny Rizzo MD [address] [place] [address] 04/20/10 documented as of this encounter
--- OUTSIDE RECORDS SUMMARY | 2024-06-10 07:30 | XMS_ITS | Encounter Summary ---
Author Organization [facility] Address [address] [place] [address] Care Team Providers Care Childcare Aide Name Role Phone Jean Munoz MD Primary Care Provider Manny Rizzo MD Unavailable Reason for Visit * Reason Comments Follow-up Encounter Details Date Type Department Care Team (Late st Contact Info) Description 09/28/2012 9:30 EST Office Visit [facility] Pulmonology & Critical Care - [address] [phone] Jeanette Virk MD [address] [place] [address], [address] [place] [address] Asthma (Primary Dx); Emphysema Social History Tobacco Use Types Packs/Day Years [...] Sign Reading Time Taken Comments Blood Pressure 118/64 09/28/2012 0940 EST Pulse 63 09/28/2012 0940 EST Temperature 36.1 ??C (96.9 ??F) 09/28/2012 0940 EST Respiratory Rate 16 09/28/2012 0940 EST Oxygen Saturation 98% 09/28/2012 0940 EST Inhaled Oxygen Concentration - - Weight 90.9 kg (200 lb 6.4 oz) 09/28/[address] Height 162.4 cm (5' 3.94) 09/28/2012 0940 EST Body Mass Index 34.47 09/28/2012 0940 EST documented in this encounter Functional Status Cognitive Status Response Date of Assessm ent Because of a physical, menta l, or emotional condition, do you have serious difficulty concentrating, remembering, or making decisions? (5 years old or older) Yes 04/05/2012 documented as of this encounter Patient Instructions * Patient Instructions* Jeanette Virk MD - 09/28/2012 10:05 EST 1. Please get blood work done today 2. Start prednisone for a 5 days course 3. Switch Advair to the HFA version Jeanette Virk MD documented in this encounter Ordered Prescriptions Prescription Sig Dispensed Refills Start Date End Da te fluticasone-salmeterol (ADVAIR HFA) 230-21 mcg/actuation inhaler Inhale 2 Puffs as directed 2 times daily. 1 Inhaler 11 09/28/2012 11/23/2012 predniSONE (DELTASONE) 20 mg tablet Take 2 Tabs by mouth daily for 5 days. 10 Tab 0 09/28/2012 10/03/2012 documented in this encounter Progress Notes * Jeanette Virk MD - 09/28/2012 0935 EST DIVISION OF PULMONOLOGY? PROGRESS/FOLLOWUP NOTE -09/28/2012 ?? Jean Munoz MD SO [address] [facility] [address] REASON FOR VISIT: Encounter Diagnoses Name Primary? Asthma Yes ??? Emphysema INTERVAL HISTORY: Liset Lynne Viera was seen in pulmonary clinic today for evaluation of the above medical problems. They were last seen in the pulmonary clinic on 06/08/12. In the interval since the last visit??She has continued to have a lot of wheezing. She did not feel like the addition of Spiriva made much of a difference unfortunately. She continues to use her rescue inhaler 3 to 4 times a day. She has nightly symptoms on most night and finds that cold air is another persistent trigger. She also has exertional dyspnea, which remains relatively unchanged. She notes she has a new cat that has been gradually moving into the apartment over the past 6 months, though it belongs to a neighbor. She does not, however, feel that the proximity to the cat has affected her respiratory symptoms and has no history of documented pet allergies. She also continues to have ongoing secondhand smoke exposure in her home. For the last few days she has noticed some increased nasal congestion but no fevers, chills or myalgias. She has had some headaches, however. She has been slightly more short of breath over these past few days than her baseline, A 12 point review of systems was obtained and was negative except as noted above. The past medical, social and family history were reviewed and updated in the chart. Medications: has a current medication list which includes the following prescription(s): methylphenidate, methylphenidate, zolpidem, pregabalin, hydrocodone-acetaminophen, singulair, cyclosporine, tiotropium, promethazine, ipratropium-albuterol, baclofen, fexofenadine, mometasone, nortriptyline, ome prazole, sertraline, levalbuterol, ropinirole, advair diskus, doxycycline, hydroxypropyl methylcellulose, and docusate sodium. Objective:?? PHYSICAL EXAMINATION: A well-nourished femalein no respiratory distress. Vital signs: BP 118/64 Pulse 63 Temp(Src) 36.1 ??C (96.9 ??F) (Tympanic) Resp 16 Ht 162.4 cm (63.94) Wt 90.9 kg (200 lb 6.4 oz) BMI 34.47 kg/m2 SpO2 98% HEENT exam: Normocephalic, atraumatic. Pupils are equally round and reactive to light. Neck is supple without adenopathy or thyromegaly. Nares with mucous impaction. Pharynx without exudate or erythema. Lungs exam: decreased airflow with scattered expiratory wheeze Cardiovascular exam: Regular rate and rhythm without murmurs, rubs, or gallops. Abdomen exam: Obese, soft, non-tender Extremities exam: No clubbing or edema. Neuro: Alert and oriented x 4 , normal mood and affect, moves all extremities well. Data:?? Pulmonary function studies: Pulmonary function studies, ordered and reviewed by me, show: FVC of 1.98 liters, 57% of predicted FEV1 of 1.53 liters, 56 % of predicted FEV1/FVC ratio 97% predicted Consistent with weakness or restriction or poor effort, with an interval decline in FVC and FEV1. Impression and Plan:??A 51-year-old woman with longstanding asthma as well as recently diagnosed emphysema in the setting of a long prior smoking history and ongoing secondhand smoke exposure. She continues to have significant daily symptoms in terms of wheezing and dyspnea. On top of that, I suspect that she is currently in the early stages of an exacerbation as manifested by her diffuse wheezing on exam and decline in lung function. My plan at this time is as follows: 1. Prednisone burst for treatment of the exacerbation. She does not endorse any flu-like symptoms at this time. 2. Switch her from Advair Diskus to Advair HFA to see if she gets some better control with this, asmany patients do. 3. I would like to check her CBC for eosinophilia and her IgE level to see if this is elevated which would potentially open up some other treatment options for her asthma. 4. I discussed with her at length the importance of avoiding triggers in asthma, including minimizing contact with the cat and minimizing secondhand smoke exposure. I confirmed that she has received her flu shot this year. We will plan to see the patient back in 2 months and have encouraged them to call us sooner if any issues arise. ?? Jeanette Virk MD Pulmonary Attending ? cc: ?Jean Munoz MD documented in this encounter Plan of Treatment Upcoming Encounters Date Type Department Care Team (Late st Contact Info) Description 06/29/2024 14:15 EDT Office Visit [facility] [address] [place] [address] Jean Munoz MD [address] [place] [phone] documented as of this encounter Results * IGE (09/28/2012 10:43 EST) IgE 19 <158 IU/ml [facility] Blood specimen (specimen) 09/28/2012 10:43 EST 09/28/2012 10:52 EST Jeanette Virk MD CHEMISTR Y & BLOOD GAS ORDERABLES Performing Organization Address City/State/[facility] Co de Phone Number [facility] [address] [place] [address] documented in this encounter Visit Diagnoses Diagnosis Asthma- Primary Unspecified asthma Emphysema Other emphysema Screening for osteoporosis- Primary [...] Reason Start Date End Da te ADVAIR DISKUS 500-50 mcg/dose diskus inhaler INHALE ONE PUFF BY MOUTH TWICE A DAY DIRECTED 11/13/2011 09/28/2012 documented as of this encounter Care Teams Childcare Aide Relationship Specialty Start Date End Date Jean Munoz MD [address] [place] [address] PCP - General 12/31/08 Manny Rizzo MD [address] [place] [address] 04/20/10 documented as of this encounter
--- OUTSIDE RECORDS SUMMARY | 2024-06-10 07:31 | XMS_ITS | Encounter Summary ---
Author Organization [facility] Address [address] [place] [address] Care Team Providers Care Sales Route Driver Name Role Phone Jean Munoz MD Primary Care Provider Manny Rizzo MD Unavailable Reason for Visit * Reason Onset Date Comments [facility] 04/18/2012 Encounter Details Date Type Department Care Team (Late st Contact Info) Description 04/18/2012 Telephone [facility] [address] [place] [address] Jean Munoz MD [address] [place] [address] [facility] Social History Tobacco Use Types Packs/Day Years Used Date Smoking Tobacco: Former Cigarettes 0.3 30 0 10/14/1980 - 10/14/2010 Smokeless Tobacco: Never Alcohol Use [...] Miscellaneous Notes * Telephone Encounter - Jean Mnuoz MD - 04/18/2012 1635 EDT noted * Telephone Encounter - Ra Pope - 04/18/2012 1410 EDT Mariely from [facility] calling to state they are initiating home health PT services. documented in this encounter Plan of Treatment Upcoming Encounters Date Type Department Care Team (Late st Contact Info) Description 06/29/2024 14:15 EDT Office Visit [facility] [address] [place], [place] [phone] Jean Munoz MD [address] [place] [phone] documented as of this encounter Visit Diagnoses Not on filedocumented in this encounter Care Teams Sales Route Driver Relationship Specialty Start Date End Date Jean Munoz MD [address] [place] [address] PCP - General 12/31/08 Manny Rizzo MD [address] [place] [address] 04/20/10 documented as of this encounter
--- OUTSIDE RECORDS SUMMARY | 2024-06-10 07:31 | XMS_ITS | Encounter Summary ---
Author Organization [facility] Address [address] [place] [address] Care Team Providers Care Manager Sql Name Role Phone Jean Munoz MD Primary Care Provider Manny Rizzo MD Unavailable Reason for Referral * Consult (Routine/Next Available) - Closed Specialty Diagnoses / Procedures Referred By Alex weldon Referred To Contact Sleep Medicine Diagnoses Insomnia Jean Munoz MD [address] [place] [phone] [facility] [address] [place] [id number] Referral ID Status Reason Start Date Expiration Date V isits Requested Visits Authorized [id number] Closed Specialty Services Required 04/15/2012 1 1 Question Answer Reason for Request: consult Celia Castro for chronic insomnia requiring Ambien in setting of narcolepsy * Consult (Routine/Next Available) - Closed Specialty Diagnoses / Procedures Referred By Alex weldon Referred To Contact Pulmonary Disease Diagnoses Atypical pneumonia Asthma Jean Munoz MD [address] [place] [phone] [facility] [address] [place] [address] Referral ID Status Reason Start Date Expiration Date V isits Requested Visits Authorized [id number] Closed Specialty Services Required 04/15/2012 1 1 Question Answer Reason for Request: atypical pneumonia, Astham, persistnet dyspnea and O2 requirement , needs further eval after inpatient admission Reason for Visit * Reason Comments Hospital Discharge Follow Up has had lionel hrea for past 24 hrs Encounter Details Date Type Department Care Team (Late st Contact Info) Description 04/15/2012 13:00 EDT Office Visit [facility] [address] [place] [address] Jean Munoz MD [address] [place] [phone] Atypical pneumonia (Primary Dx); Asthma; Diarrhea; Left knee pain; Insomnia Social History Tobacco Use Types Packs/Day Years [...] Reading Time Taken Comments Blood Pressure 116/70 04/15/2012 1254 EDT Pulse 96 04/15/2012 1254 EDT Temperature 36.2 ??C (97.1 ??F) 04/15/2012 1254 EDT Respiratory Rate - - Oxygen Saturation 98% 04/15/2012 1340 EDT wit h 02 Inhaled Oxygen Concentration - - Weight 87.1 kg (192 lb) 04/15/2012 1254 EDT Height 162.6 cm (5' 4) 04/15/2012 1254 EDT Body Mass Index 32.96 04/15/2012 1254 EDT documented in this encounter Functional Status Cognitive Status Response Date of Assessm ent Because of a physical, menta l, or emotional condition, do you have serious difficulty concentrating, remembering, or making decisions? (5 years old or older) Yes 04/05/2012 documented as of this encounter Progress Notes * Susan Blackmon LPN - 04/15/2012 1342 EDT Patient given supplies to collect a stool sample at home. Oxygen saturation taken with and without oxygen. Please see documentation for further information. I was supervised by Dr. Munoz who was present and immediately available in the office suite. Susan Blackmon LPN 04/15/2012 13:43 * Jean Munoz MD - 04/15/2012 1305 EDT Subjective: Patient ID: Liset Viera is an 51 y.o. female. Chief Complaint Patient presents with ??? Hospital Discharge Follow Up has had diahrea for past 24 hrs HPI 1. Asthma Recent admit Discharged Wednesday after 7 days Breathing not too bad right now Less wheezing Still on oxygen No Pulmonary F/U scheduled Reports fever last night 100 No orthopnea +ALEJANDRE 2. Diarrhea Onset Wednesday 5-6/day No blood No abdominal pain +nausea +vomiting x 3-4 3. Insomina pretty good States has not used Ambien this week Has not refilled yet Discussed briefly with Dr Bacon, suggest referral to Celia Castro Patient Active Problem List Diagnoses ??? Severe [...] Irritable bowel syndrome (IBS) ??? Rosacea ??? Patellar bursitis ??? Contusion, knee ??? Prepatellar bursitis of left knee ??? Left knee pain ??? Pneumonia ??? Atypical pneumonia Past Medical History Diagnosis Date ??? UTI [...] ??? Anxiety ??? Depression ??? Pneumonia 04/05/2012 Current Outpatient Prescriptions on File Prior to Visit Medication Sig Dispense Refill ??? methylphenidate (RITALIN;METHYLIN) 10 mg tablet Take one tab in the afternoon for narcolepsy 30Tab 0 ??? methylphenidate (RITALIN SR; METADATE ER; METHYLIN ER) 20 mg SR tablet Brand only. Take 2 tabs in the morning for narcolepsy. 60 Tab 0 ??? ipratropium-albuterol (DUO-NEB) 0.5 mg-3 mg(2.5 mg base)/3 mL nebulizer solution Take 3 mL by nebulization 4 times daily. 2 Box 0 ??? predniSONE (DELTASONE) 10 mg tablet Take 1 Tab by mouth daily. 04/11 take 8 tab, 04/12 take 6 tab, 8/1 take 4 tab, 8/2 take 2 tab, 8/3 take 1 tab. 21 Tab 0 ??? lorazepam (ATIVAN) 0.5 mg tablet Take 1 Tab by mouth every 6 hours as needed (anxiety). 5 Tab 0 ??? montelukast (SINGULAIR) 10 mg tablet Take 1 Tab by mouth at bedtime. 30 Tab 2 ??? hydrocodone-acetaminophen (LORTAB;VICODIN) 5-500 mg tablet Take 1 Tab by mouth every 6 hours asneeded for Pain. 112 Tab 0 ??? acetaminophen-codeine (TYLENOL #3) 300-30 mg per tablet Take 1-2 Tabs by mouth every 4 hours asneeded for Pain. 45 Each 0 ??? zolpidem (AMBIEN) 10 mg tablet Take 1 Tab by mouth at bedtime as needed for Sleep. 30 Each 2 ??? sumatriptan (IMITREX) 50 mg tablet TAKE 1 TABLET BY MOUTH ONCE NEEDED FOR MIGRAINE FOR 1 DOSE 9 Each 2 ??? baclofen (LIORESAL) 10 mg tablet [...] MOUTH AT BEDTIME 90 Each 3 ??? LYRICA 150 mg capsule TAKE 1 CAPSULE BY MOUTH THREE TIMES A DAY 270 Each 1 ??? ADVAIR DISKUS 500-50 mcg/dose diskus inhaler [...] Topics ??? Smoking status: Former Smoker -- 0.2 packs/day for 30 years Types: Cigarettes Quit date: 10/14/2010 ??? Smokeless tobacco: Never Used ??? Alcohol Use: No rarely ROS - See HPI Objective: BP 116/70 Pulse 96 Temp(Src) 36.2 ??C (97.1 ??F) (Oral) Ht 162.6 cm (64) Wt 87.091 kg (192lb) BMI 32.96 kg/m2 SpO2 98% Physical Exam Nursing note and vitals reviewed. Constitutional: She appears well-nourished. Mild dyspnea, on portable O2 (1L?) HENT: Right Ear: External ear normal. Mouth/Throat: Oropharynx is clear and moist. No oropharyngeal exudate. Eyes: Conjunctivae are normal. Right eye exhibits no discharge. Left eye exhibits no discharge. Cardiovascular: Normal rate, regular rhythm and normal heart sounds. No murmur heard. Pulmonary/Chest: She has wheezes. She has rales. Abdominal: Soft. Bowel sounds are normal. There is no tenderness. There is no rebound and no guarding. Musculoskeletal: She exhibits no edema. Lymphadenopathy: She has no cervical adenopathy. Assessment: Plan: Liset was seen today for hospital discharge follow up. Diagnoses and associated orders for this visit: Atypical pneumonia - Still symptomatic off Abx - Ear/Pulse Oximetry, Single (96-98) - Ambulatory Consult Pulmonary Asthma - Ear/Pulse Oximetry, Single - Ambulatory Consult Pulmonary Continue pred taper Diarrhea - C. Difficile Molecular Detection - Bacterial Culture, Feces Suspect mild dehydration, she declined ER/WICC eval for IVF Left knee pain Ortho pending Insomnia - Ambulatory Consult Sleep Center Re CBT, hopefully can reduce need for Ambien in setting of narcolepsy Patient states not using every night but this is not consistent with past Rx pattern Patient Education Topic: as above Method: Verbal Taught to: Patient Barriers: None Outcomes: Verbalized understanding documented in this encounter Plan of Treatment Upcoming Encounters Date Type Department Care Team (Late st Contact Info) Description 06/29/2024 14:15 EDT Office Visit [facility] [address] [place] [address] Jean Munoz MD [address] [place] [phone] Scheduled Orders Name Type Priority Associated Diagnoses Orde r Schedule EAR/PULSE OXIMETRY, SINGLE Procedures Routine Atypical pneumonia Asthma Ordered: 04/15/2012 Scheduled Referrals Name Type Priority Associated Diagnoses Orde r Schedule AMB CONSULT PULMONARY Outpatient Referral Routine Atypical pneumonia Asthma Ordered: 04/15/2012 [facility] Outpatient Referral Routine Insomnia Ordered: 04/15/2012 documented as of this encounter Visit Diagnoses Diagnosis Atypical pneumonia- Primary Pneumonia, organism unspecified Asthma Unspecified asthma Diarrhea Left knee pain Pain in joint, lower leg Insomnia Insomnia, unspecified Screening for osteoporosis- Primary Special screening for osteoporosis Primary narcolepsy without cataplexy Chronic pain syndrome Chronic low back pain Lumbago Chronic use of opiate for therapeutic purpose Pain medication agreement Encounter for long-term (current) use of other medications Screen for colon cancer Special screening for malignant neoplasms, colon documented in this encounter Care Teams Manager Sql Relationship Specialty Start Date End Date Jean Munoz MD [address] [place] [phone] PCP - General 12/31/08 Manny Rizzo MD [address] [place] [phone] 04/20/10 documented as of this encounter
--- OUTSIDE RECORDS SUMMARY | 2024-06-10 07:31 | XMS_ITS | Encounter Summary ---
Author Organization [facility] Address [address] [place] [address] Care Team Providers Care Fire Alarm Technician Name Role Phone Jean Munoz MD Primary Care Provider Manny Rizzo MD Unavailable Reason for Visit * Reason Onset Date Comments Medications Refill 05/11/2012 Encounter Details Date Type Department Care Team (Late st Contact Info) Description 05/11/2012 Refill [facility] Neurology - [address] [phone] Tiana Bacon [address] [place] [address] Medications Refill Social History Tobacco [...] the afternoon for narcolepsy 30 Tab 0 05/11/2012 06/08/2012 methylphenidate (RITALIN SR; METADATE ER; METHYLIN ER) 20 mg SR tablet Brand only. Take 2 tabs in the morning for narcolepsy. 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 * Telephone Encounter - Yanet Zacarias - 05/11/2012 1054 EDT methylphenidate (RITALIN SR; METADATE ER; METHYLIN ER) 20 mg SR tablet, Brand only; Take 2 tabs in the morning for narcolepsy. methylphenidate (RITALIN;METHYLIN) 10 mg tablet; Take one tab in the afternoon for narcolepsy. 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 documented in this encounter Plan of Treatment Upcoming Encounters Date Type Department Care Team (Late st Contact Info) Description 06/29/2024 14:15 EDT Office Visit [facility] [address] [place] [address] Jean Munoz MD [address] [place] [phone] documented as of this encounter Visit Diagnoses Not on filedocumented in this encounter Discontinued Medications Medication Sig Discontinue Reason Start Date End Da te methylphenidate (RITALIN SR; METADATE ER; METHYLIN ER) 20 mg SR tablet Brand only. Take 2 tabs in the morning for narcolepsy. Reorder 04/12/2012 05/11/2012 methylphenidate (RITALIN;METHYLIN) 10 mg tablet Take one tab in the afternoon for narcolepsy Reorder 04/12/2012 05/11/2012 documented as of this encounter Care Teams Fire Alarm Technician Relationship Specialty Start Date End Date Jean Munoz MD [address] [place] [phone] PCP - General 12/31/08 Manny Rizzo MD [address] [place] [phone] 04/20/10 documented as of this encounter
--- OUTSIDE RECORDS SUMMARY | 2024-06-10 07:31 | XMS_ITS | Encounter Summary ---
Author Organization [facility] Address [address] [place] [address] Care Team Providers Care Powderman Name Role Phone Jean Munoz MD Primary Care Provider Manny Rizzo MD Unavailable Reason for Referral * Consult (Routine/Next Available) - Closed Specialty Diagnoses / Procedures [facility] Referred To Contact Diagnoses Pneumonia [place] [address] Referral ID Status Reason Start Date Expiration Date V isits Requested Visits Authorized [id number] Closed Specialty Services Required 04/11/2012 1 1 Question Answer Alf Referral - Assessment: CP Status Alf Referral - Disease Mgmt and Education about: Other - Asthma Reason for Visit * Reason Comments Shortness of Breath SOB and CP beginning yesterday. Also arrives c/o headache (no relief from imitrex) this am. States that she had a fever last night of 102, but arrives afebrile. Decreased appetite x3 days. Hx asthma Encounter Details Date Type Department Care Team (Late st Contact Info) Description 04/05/2012 16:40 EDT - 04/11/2012 15:44 EDT Hospital Encounter [facility] General Medicine Unit [address] [place] [address] Jorge Rutledge MD [address] [facility], Level [address] [place] [phone] Rosetta Varela, DO [address] [place] [phone] Cory Willard MD [address] [place] [phone] Pneumonia; Low back pain; Seasonal allergic rhinitis; Anxiety; Depression; Insomnia; GERD (gastroesophageal reflux disease); Asthma Discharge Disposition: Home or Self Care Social [...] Sign Reading Time Taken Comments Blood Pressure 122/68 04/11/2012 1325 EDT Pulse 89 04/11/2012 1325 EDT Temperature 36.2 ??C (97.2 ??F) 04/11/2012 1325 EDT Respiratory Rate 20 04/11/2012 1325 EDT Oxygen Saturation 94% 04/11/2012 1325 EDT Inhaled Oxygen Concentration - - Weight 88.8 kg (195 lb 11.2 oz) 04/05/2012 2142 EDT Height 165.1 cm (5' 5) 04/05/2012 1741 EDT Body Mass Index 32.57 04/05/2012 1741 EDT documented in this encounter Functional Status Cognitive Status Response Date of Assessm ent Because of a physical, menta l, or emotional condition, do you have serious difficulty concentrating, remembering, or making decisions? (5 years old or older) Yes 04/05/2012 documented as of this encounter Discharge Summaries * Cory Willard MD - 04/09/2012 0810 EDT [facility] Hospital Discharge Summary Chief Complaint / Admitting Diagnosis: Shortness of Breath Principal Problem / Final Diagnosis: Viral v Atypical Pneumonia Secondary Diagnosis: Asthma Exacerbation Principal Procedure: None Condition at Discharge: Improved Assessment at Discharge: Vital signs: Patient Vitals for the past 12 hrs: BP Pulse Resp Temp SpO2 O2 Flow Rate (L/min) O2 Device 04/09/12 0549 129/72 mmHg 63 20 35.9 ??C (96.6 ??F) 94 % 2.5 l/min Nasal cannula 04/08/12 2205 136/67 mmHg 71 24 35.9 ??C (96.6 ??F) 94 % - Room air 04/08/122044 - - - - - - Room air Physical Exam: General: Patient sitting up in bed watching television. NC in place. HEENT: Normocephalic/Atraumatic, EOMI, wearing glasses. Respiratory: Diffuse expiratory wheezing throughout with intermittent rhonchi. Cardiac: Regular rate and rhythm, normal S1/S2, no murmurs, rubs or gallops. Abdomen: +BS, soft, mildly distended, non-tender. No masses or hepatosplenomegaly. No guarding or rigidity. Genitourinary: No avalos. Musculoskeletal: Normal symmetric muscle bulk and strength. Dermatologic: Per prior exam, bruising visible on proximal medial LUE. Psychiatric: Alert and oriented, answers questions appropriately. Hospital Course Liset Meadows is a 51 y.o. female with history of chronic back pain, obesity, asthma, narcolepsy,depression, anxiety, GERD, and migraine, who presented with a one-day history of shortness of breath, non-productive cough, and wheezing five days after diagnosis of asthma exacerbation and treatmentwith prednisone and singulair. In the ED, she was saturating well on room air and was without leukoc ytosis. TnI ordered for CP was negative and EKG revealed normal sinus rhythm, heart rate 70, and noacute ST-T wave changes. CXR, however, showed findings c/w pneumonia, likely viral, and the patientwas with diffuse rhonchi and wheezing on physical exam. She was started on azithromycin and blood cultures were obtained. There was concern for atypical PNA (Legionella PNA is suggested by GABRIEL, mild co ugh, dyspnea, CP, diarrhea, N/V and M. Pneumonia is suggested by GABRIEL, malaise, fever, ear pain, rhinorrhea) v asthma exacerbation. She was admitted to the Family Medicine Service for antibiotics and monitoring of her respiratory status. A work-up was performed with blood cultures (negative), sputum culture (moderate GPC, suggestive ofminimal or inflammation), Legionella antigen (negative), and virology (negative). For her asthma, she was treated with albuterol Nebs PRN, scheduled Duo-Nebs, and prednisone 60 mg (dose increased to 60 mg BID on 04/09). Her home advair and monteleukast were continued. She was treated with a five-day course of azithromycin for atypical pneumonia. On the day of discharge, she was afebrile and without leukocytosis. She was discharged to home on oxygen (4L with exercise, RA at rest), prednisone taper with Duo-Nebs in improved condition to follow up with PCP on Sunday 04/15 at 1 PM. Recommend outpatient consult to pulmonology after discharge. Disposition Data MeadowsJulietapema Lynne Home Medication Instructions CAMILLA:[id number] Printed on:04/11/12 4682 Medication Information docusate sodium (COLACE) 100 mg capsule Take 1 Cap by mouth 2 times daily as needed for Constipation. hydroxypropyl methylcellulose (ISOPTO TEARS) 0.5 % ophthalmic solution Place 1 Drop into both eyes 5 times daily. CYCLOSPORINE (RESTASIS OPHT) Apply 1 Drop to eye 2 times daily. doxycycline (VIBRA-TABS) 100 mg tablet Take 1 Tab by mouth daily. ropinirole (REQUIP) 2 mg tablet TAKE ONE TABLET BY MOUTH AT BEDTIME LYRICA 150 mg capsule TAKE 1 CAPSULE BY MOUTH THREE TIMES A DAY ADVAIR DISKUS 500-50 mcg/dose diskus inhaler INHALE ONE PUFF BY MOUTH TWICE A DAY DIRECTED levalbuterol (XOPENEX HFA) 45 mcg/actuation inhaler Inhale 1-2 Puffs as directed every 4 hours as needed for Wheezing. baclofen (LIORESAL) 10 mg tablet Take 0.5-1 Tabs by mouth 3 times daily as needed. fexofenadine (JUDITH) 180 mg tablet Take 1 Tab by mouth daily. mometasone (NASONEX) 50 mcg/actuation nasal spray 2 Sprays by Nasal route daily. nortriptyline (PAMELOR) 75 mg capsule Take 1 Cap by mouth daily. omeprazole (PRILOSEC) 20 mg capsule Take 1 Cap by mouth daily. sertraline (ZOLOFT) 100 mg tablet Take 2 Tabs by mouth daily. sumatriptan (IMITREX) 50 mg tablet TAKE 1 TABLET BY MOUTH ONCE NEEDED FOR MIGRAINE FOR 1 DOSE methylphenidate (RITALIN SR; METADATE ER; METHYLIN ER) 20 mg SR tablet Brand only. Take 2 tabs in the morning for narcolepsy. zolpidem (AMBIEN) 10 mg tablet Take 1 Tab by mouth at bedtime as needed for Sleep. acetaminophen-codeine (TYLENOL #3) 300-30 mg per tablet Take 1-2 Tabs by mouth every 4 hours as needed for Pain. montelukast (SINGULAIR) 10 mg tablet Take 1 Tab by mouth at bedtime. hydrocodone-acetaminophen (LORTAB;VICODIN) 5-500 mg tablet Take 1 Tab by mouth every 6 hours as needed for Pain. ipratropium-albuterol (DUO-NEB) 0.5 mg-3 mg(2.5 mg base)/3 mL nebulizer solution Take 3 mL by nebulization 4 times daily. predniSONE (DELTASONE) 10 mg tablet Take 1 Tab by mouth daily. 04/11 take 8 tab, 04/12 take 6 tab, 8/1 take 4 tab, 8/2 take 2 tab, 8/3 take 1 tab. lorazepam (ATIVAN) 0.5 mg tablet Take 1 Tab by mouth every 6 hours as needed (anxiety). Relevant Studies at Discharge: Chest PA and Lateral, 04/05, Findings: Patchy bilateral interstitial and airspace opacities most consistent with pneumonia. The lungs look otherwise clear and there is no pleural fluid. The cardiac silhouette is normal and there is no convincing evidence of pulmonary edema. The skeleton is grossly unremarkable for age aside from lower cervical anterior fixation. Impression: Findings consistent with pneumonia, most likely viral given the diffuse in nature and interstitial component Last Lab Results at Discharge: BUN: Lab Results Component Value Date BUN 9* 04/08/2012 Creatinine: Lab Results Component Value Date CREATININE 0.52 04/08/2012 CBC: Lab Results Component Value Date WBC 12.09 04/09/2012 RBC 3.66* 04/09/2012 HGB 11.7 04/09/2012 HCT 34.0* 04/09/2012 MCV 93 04/09/2012 MCH 32.1 04/09/2012 MCHC 34.6 04/09/2012 PLT 297 04/09/2012 DIFFTYPE Manual 04/08/2012 SEDRATE 4 06/28/2008 Electrolytes: Lab Results Component Value Date NA 142 04/08/2012 K 3.7 04/08/2012 CL 103 04/08/2012 CO2 28 04/08/2012 Results for LISET MEADOWS ( ) as of 04/09/2012 08:12 Ref. Range 04/07/2012 06:51 Hemoglobin A1C No range found 6.0 Home Health [id number] Encounter: I certify that this patient is under my care and that I, or a Medicare authorized non-physician provider (PROJECT SAFETY MANAGER or PA) working with me, had a [id number] encounter with this patient on 04/11 that was inwhole or in part related to the reason the patient needs home health care. The findings of this encounter indicate that the patient requires senior living or therapist services for the reasons listed below. [facility] services: - are required to train the patient/caregiver to manage the treatment regimen for this illness or condition - are required to provide treatments and care safely and effectively - are required for assessment/observation due to the potential for complications or exacerbation ofthe patient's condition Skilled therapist services: N/A Additionally, the findings of this encounter support that the patient is homebound because: N/A CC: Jean Munoz MD Hospital Discharge Summary completed by on 04/11. Attestation statement for inpatient note: I interviewed and examined this patient on the day of theabove note and agree with the findings and plan of care documented in the resident's/fellow's note. Cory Willard MD Family Medicine Attending 04/18/2012 20:28 documented in this encounter Discharge Instructions * Discharge Instructions* Graciela Lin MD - 04/11/2012 14:10 EDT Diet: Diabetic Activity: Activity as tolerated Driving: No driving while taking narcotic pain medication Skin/Wound Care: Not applicable Bathing: No restrictions Pending Results: Not applicable Quality Measures for Acute Myocardial Infarction or Heart Failure Patients: Not applicable Symptoms to Call Your Doctor About: Chest pain (angina) Dizziness or fainting Decreased urine output Fever greater than 100.4 or chills Inability to swallow or increasing difficulty swallowing Increased or new pain Increased peripheral edema Nausea or vomiting Pain unrelieved by medication Recurrance of symptoms that brought you to the hospital Severe or increasing headache Shortness of breath or rapid breathing Skin rash Signs of infection such as pain, redness, swelling or drainage at procedure or wound site Appointments: You have an appointment with Dr. Munoz this Wednesday (04/13) at 1 PM at [facility] Follow-up Services Contacted at Discharge: Home health Home oxygen Heart Failure Teaching: Not applicable Health Risk and Disease Information: Not applicable documented in this encounter Medications at Time of Discharge Medication Sig Dispensed Refills Start Date End Date docusate sodium (COLACE) 100 mg capsule Take 1 Capsule by mouth 2 times daily as needed for Constipation. 09/24/2010 acetaminophen-codeine (TYLENOL #3) 300-30 mg per tablet Take 1-2 Tabs by mouth every 4 hours as needed for Pain. 45 Each 0 03/30/2012 04/28/2012 ADVAIR DISKUS 500-50 mcg/dose diskus inhaler INHALE [...] 12/09/2011 11/24/2012 hydrocodone-acetaminoph en (LORTAB;VICODIN) 5-500 mg tablet Take 1 Tab by mouth every 6 hours as needed for Pain. 112 Tab 0 03/31/2012 04/28/2012 hydroxypropyl methylcellulose (ISOPTO TEARS) 0.5 % ophthalmic [...] for Wheezing. 3 Inhaler 3 11/23/2011 11/24/2012 lorazepam (ATIVAN) 0.5 mg tabletIndications:Anxie ty Take 1 Tab by mouth every 6 hours as needed (anxiety). 5 Tab 0 04/11/2012 06/08/2012 LYRICA 150 mg capsule TAKE 1 CAPSULE BY MOUTH THREE TIMES A DAY 270 Each 1 11/13/2011 05/26/2012 methylphenidate (RITALIN SR; METADATE ER; METHYLIN ER) 20 mg SR tablet Brand only. Take 2 tabs in the morning for narcolepsy. 60 Tab 0 03/08/2012 04/12/2012 mometasone (NASONEX) 50 mcg/actuation nasal sprayIndications:Season al [...] 90 Cap 4 12/09/2011 11/24/2012 predniSONE (DELTASONE) 10 mg tablet Take 1 Tab by mouth daily. 04/11 take 8 tab, 04/12 take 6 tab, 8/1 take 4 tab, 8/2 take 2 tab, 8/3 take 1 tab. 21 Tab 0 04/11/2012 05/26/2012 ropinirole (REQUIP) 2 mg tablet TAKE ONE TABLET BY MOUTH AT BEDTIME 90 Each 3 11/13/2011 11/24/2012 sertraline (ZOLOFT) 100 mg tabletIndications:Depre ssion Take 2 Tabs by mouth daily. 180 Tab 5 12/09/2011 11/24/2012 sumatriptan (IMITREX) 50 mg tablet TAKE 1 TABLET BY MOUTH ONCE NEEDED FOR MIGRAINE FOR 1 DOSE 9 Each 2 01/07/2012 05/08/2012 zolpidem (AMBIEN) 10 mg tabletIndications:Insom yesi Take 1 Tab by mouth at bedtime as needed for Sleep. 30 Each 2 03/08/2012 05/26/2012 documented as of this encounter Ordered Prescriptions Prescription Sig Dispensed Refills Start Date End Da te lorazepam (ATIVAN) 0.5 mg tabletIndications:Anxie ty Take 1 Tab by mouth every 6 hours as needed (anxiety). 5 Tab 0 04/11/2012 06/08/2012 predniSONE (DELTASONE) 10 mg tablet Take 1 Tab by mouth daily. 04/11 take 8 tab, 04/12 take 6 tab, 8/1 take 4 tab, 8/2 take 2 tab, 8/3 take 1 tab. 21 Tab 0 04/11/2012 05/26/2012 ipratropium-albuterol (DUO-NEB) 0.5 mg-3 mg(2.5 mg base)/3 mL nebulizer solution Take 3 mL by nebulization 4 times daily. 2 Box 0 04/11/2012 11/24/2012 documented in this encounter Discharge Disposition Disposition Code Departure Means Destination Home or Self Care documented in this encounter Progress Notes * Gonzales Santillan - 04/10/2012 1024 EDT SPIRITUAL CARE NOTE Re: Liset Meadows : 1960 Location: B486/01 Patient is [facility] and has been Anointed with the Sacrament of the Sick. Date 04/10/2012 Page or Referral ? -Regular visit Time of Page/Call -1013am Sacraments given: -Communion and anointing of the sick Follow up necessary - Yes Comfort Care / End of Life - No Note: Signed Gonzales Santillan [employer] Pager [phone] * Rosetta Kraft DO - 04/10/2012 0913 EDT Family Medicine Service Progress Note Chief Complaint: Shortness of Breath 24-Hour Events: -No acute events Subjective: Patient is feeling alright this morning. Feels she is improving overall. Her breathing is okay with her oxygen on. She still has some SOB at rest, non- productive cough, and wheezing. She also noted GABRIEL. No URI symptoms this morning. No fevers, chills, CP, N/V, constipation, diarrhea, problems urinating. Review of Systems: Pertinent items are noted in Subjective/HPI Current Medications: Current Facility-Administered Medications Medication Route Frequency ??? predniSONE (DELTASONE) tablet 60 mg Oral BID ??? rOPINIRole (REQUIP) tablet 2 mg Oral QHS ??? sodium chloride (OCEAN) 0.65 % nasal spray 1 [place] Nasal PRN ??? albuterol (PROVENTIL) 2.5 mg /3 mL (0.083 %) nebulizer solution 2.5 mg Nebulization QID ??? albuterol (PROVENTIL) 2.5 mg /3 mL (0.083 %) nebulizer solution 2.5 mg Nebulization Q4H PRN ??? methylphenidate (RITALIN SR; METADATE ER; METHYLIN ER) ER tablet 40 mg Oral QD (BREAKFAST) ??? sumatriptan (IMITREX) tablet 50 mg Oral ONCE ??? doxycycline (VIBRA-TABS) tablet 100 mg Oral QHS ??? nortriptyline (PAMELOR) capsule 75 mg Oral QHS ??? acetaminophen-codeine (TYLENOL #3) 300-30 mg per tablet 1-2 Tab Oral Q4H PRN ??? fluticasone-salmeterol (ADVAIR) 500-50 mcg/dose diskus inhaler 1 Puff Inhalation BID ??? baclofen (LIORESAL) tablet 5-10 mg Oral TID PRN ??? cyclosporine (RESTASIS) 0.05 % ophthalmic emulsion 1 Drop Both Eyes Q12H ??? docusate sodium (COLACE) capsule 100 mg Oral BID PRN ??? fexofenadine (JUDITH) 12 hr tablet 180 mg Oral DAILY ??? hydrocodone-acetaminophen (LORTAB;VICODIN) 5-500 mg tablet 1 Tab Oral Q6H PRN ??? hydroxypropyl methylcellulose (ISOPTO TEARS) 0.5 % ophthalmic solution 1 Drop Both Eyes 5X DAILY ??? lorazepam (ATIVAN) tablet 0.5 mg Oral Q6H PRN ??? pregabalin (LYRICA) capsule 150 mg Oral TID ??? mometasone (NASONEX) 50 mcg/actuation nasal spray 2 [place] Nasal DAILY ??? montelukast (SINGULAIR) tablet 10 mg Oral QHS ??? sertraline (ZOLOFT) tablet 200 mg Oral DAILY ??? heparin injection 5,000 Units Subcutaneous Q8H ??? pantoprazole (PROTONIX) tablet 40 mg Oral DAILY Objective: Physical Exam: BP 133/79 Pulse 66 Temp(Src) 35.7 ??C (96.3 ??F) (Tympanic) Resp 24 Ht 165.1 cm (65) Wt 88.769 kg (195 lb 11.2 oz) BMI 32.57 kg/m2 SpO2 95% Intake/Output Summary (Last 24 hours) at 04/10/12 0913 Last data filed at 04/09/12 1527 Gross per 24 hour Intake 1460 ml Output 0 ml Net 1460 ml General: Patient lying in bed watching television. NC in place. HEENT: Normocephalic/Atraumatic, EOMI, wearing glasses Respiratory: Diffuse expiratory wheezing throughout, somewhat decreased air movement. Cardiac: Regular rate and rhythm, normal S1/S2, no murmurs, rubs or gallops. Abdomen: +BS, soft, non-distended, non-tender. No masses or hepatosplenomegaly. No guarding or rigidity. Genitourinary: No avalos. Musculoskeletal: Normal symmetric muscle bulk and strength. Dermatologic: Per prior exam, bruising visible on proximal medial LUE. Psychiatric: Alert and oriented, answers questions appropriately. Laboratory: Recent Results (from the past 24 hour(s)) ELECTROLYTES Collection Time 04/10/12 0624 Component Value Range Sodium 140 136 - 145 (mEq/L) Potassium 4.2 3.5 - 5.0 (mEq/L) Chloride 101 96 - 110 (mEq/L) CO2 30 24 - 32 (mEq/L) BUN Collection Time 04/10/12 0624 Component Value Range BUN 11 10 - 26 (mg/dl) CREATININE Collection Time 04/10/12 06 Component Value Range Creatinine 0.60 0.52 - 1.04 (mg/dl) GFR, Calculated >60 >60 (ml/min/1.73m2) HEMAGRAM AND DIFFERENTIAL Collection Time 04/10/12 0624 Component Value Range WBC 12.05 4.0 - 12.4 (K/cmm) RBC 3.76 (*) 3.86 - 5.04 (M/cmm) Hemoglobin 11.9 11.6 - 15.2 (gm/dl) HCT 34.7 (*) 34.9 - 44.4 (%) MCV 92 81 - 98 (fl) MCH 31.6 26.7 - 33.3 (pg) MCHC 34.2 32.1 - 35.9 (gm/dl) PLT 320 141 - 320 (K/cmm) RDW-CV 15.7 (*) 11.7 - 14.6 (%) Neutrophils 89.5 (*) 45.5 - 79.7 (%) Lymphocytes 7.7 (*) 15.0 - 46.8 (%) Monocytes 2.8 1.8 - 12.0 (%) Eosinophils 0.0 (*) 0.6 - 6.9 (%) Basophils 0.0 (*) 0.2 - 1.4 (%) ABS Neutrophils 10.78 (*) 2.20 - 8.85 (K/cmm) ABS Lymphs 0.92 (*) 1.09 - 3.30 (K/cmm) ABS Monocytes 0.34 0.1 - 0.8 (K/cmm) ABS Eosinophils 0.00 (*) 0.03 - 0.61 (K/cmm) ABS Basophils 0.00 (*) 0.01 - 0.11 (K/cmm) Type of Diff: Automated Radiology: No new imaging Assessment & Plan by Problems: Impression: Liset Meadows is a 51 y.o. female with history of chronic back pain, obesity, asthma,narcolepsy, depression, anxiety, GERD, and migraine, who presented with a one-day history of shortness of breath, non-productive cough, and wheezing five days after diagnosis of asthma exacerbation and treatment with prednisone and Singulair. In the ED, she was saturating well on room air and was without leukocytosis. CXR showed findings c/w pneumonia, likely viral, and the patient was with diffuse rhonchi and wheezing on physical exam. She was started on azithromycin and blood cultures were obtained. There is concern for atypical PNA vs viral PNA vs asthma exacerbation in patient recently requiring prednisone for asthma managment. Again with diffuse expiratory wheezing on physical exam today. Active Hospital Problem List: Atypical PNA with Secondary Asthma Exacerbation Assessment: As above Plan: -Work-up with: blood cultures (pending, but NTD), Legionella antigen (negative), Virology (negative). Sputum with mod GPC and suggestion of minimal or no inflammation -Asthma: Albuterol Nebs PRN, prednisone 60mg BID. Continue home advair, monteleukast. - Will likely need home O2 evaluation today - Pulmonary follow up as outpatient recommended. - Will give rx for nebs for home use as they seem to help here. - Continue to encourage IS use. Severe Major Depression without Psychotic Features and Anxiety Assessment/Plan. Chronic issue. Continue home ativan PRN, nortriptyline, sertraline. GERD and Peptic Ulcer Disease Assessment/Plan: Continue home PPI Chronic back pain, Cervicalgia, Lumbar Radicular Pain Assessment/Plan: Stable on current regimen. Continue home baclofen, lortab, lyrica, zoloft. Requip added night for restless legs. Impaired glucose tolerance Assessment/Plan: Last A1c 5.5 in 2005. Repeat A1c 04/07 6.0. Carb consistent diet. Narcolepsy Assessment/Plan: Stable issue. Continue home methylphenidate QAM; afternoon dose discontinued as patient c/o insomnia. Seasonal allergic rhinitis Assessment/Plan: Continue home fexofenadine, nasonex Ocular Rosacea Assessment/Plan: Last seen by ophtho in January of 2012. Continue home doxycycline Nutrition Assessment: Carb consistent diet DVT Prophylaxis Plan: Heparin Disposition: Likely to home Code Status: FULL Patient & Plan discussed with Dr. Abena Lin MD 04/10/2012 9:13 [phone] Attestation statement: I saw and examined the patient and discussed assessment/plan with Dr. Linand Ms. Meadows. I agree with the findings and plan of care documented in the resident note. Time spent on floor was approximately 25 minutes. Rosetta Kraft DO Attending in Family Medicine * Rosetta Kraft DO - 04/09/2012 0441 EDT Family Medicine Service Progress Note Chief Complaint: Shortness of Breath 24-Hour Events: -Given an extra dose of prednisone -patient transitioned to room air during the day -overnight patient desaturated to 88%, given a nebulizer treatment improved to 93%, and remained onoxygen overnight. Subjective: Patient not feeling well this morning. She is having trouble breathing without the O2 in place. Shehas been using her IS religiously (nursing concurs). She really would like to go home. She is afraid she will need to be on O2 emt intermediate. She thinks the nebs are helping. Denies fevers, chills, CP, N/V. She does have a non-productive cough, slightly better. Review of Systems: Pertinent items are noted in Subjective/HPI Current Medications: Current Facility-Administered Medications Medication Route Frequency ??? albuterol (PROVENTIL) 2.5 mg /3 mL (0.083 %) nebulizer solution 2.5 mg Nebulization QID ??? albuterol (PROVENTIL) 2.5 mg /3 mL (0.083 %) nebulizer solution 2.5 mg Nebulization Q4H PRN ??? methylphenidate (RITALIN SR; METADATE ER; METHYLIN ER) ER tablet 40 mg Oral QD (BREAKFAST) ??? sumatriptan (IMITREX) tablet 50 mg Oral ONCE ??? doxycycline (VIBRA-TABS) tablet 100 mg Oral QHS ??? nortriptyline (PAMELOR) capsule 75 mg Oral QHS ??? acetaminophen-codeine (TYLENOL #3) 300-30 mg per tablet 1-2 Tab Oral Q4H PRN ??? fluticasone-salmeterol (ADVAIR) 500-50 mcg/dose diskus inhaler 1 Puff Inhalation BID ??? baclofen (LIORESAL) tablet 5-10 mg Oral TID PRN ??? cyclosporine (RESTASIS) 0.05 % ophthalmic emulsion 1 Drop Both Eyes Q12H ??? docusate sodium (COLACE) capsule 100 mg Oral BID PRN ??? fexofenadine (JUDITH) 12 hr tablet 180 mg Oral DAILY ??? hydrocodone-acetaminophen (LORTAB;VICODIN) 5-500 mg tablet 1 Tab Oral Q6H PRN ??? hydroxypropyl methylcellulose (ISOPTO TEARS) 0.5 % ophthalmic solution 1 Drop Both Eyes 5X DAILY ??? lorazepam (ATIVAN) tablet 0.5 mg Oral Q6H PRN ??? pregabalin (LYRICA) capsule 150 mg Oral TID ??? mometasone (NASONEX) 50 mcg/actuation nasal spray 2 [place] Nasal DAILY ??? montelukast (SINGULAIR) tablet 10 mg Oral QHS ??? sertraline (ZOLOFT) tablet 200 mg Oral DAILY ??? heparin injection 5,000 Units Subcutaneous Q8H ??? azithromycin (ZITHROMAX) tablet 250 mg Oral DAILY ??? predniSONE (DELTASONE) tablet 60 mg Oral DAILY ??? pantoprazole (PROTONIX) tablet 40 mg Oral DAILY Objective: Physical Exam: BP 136/67 Pulse 71 Temp(Src) 35.9 ??C (96.6 ??F) (Tympanic) Resp 24 Ht 165.1 cm (65) Wt 88.769 kg (195 lb 11.2 oz) BMI 32.57 kg/m2 SpO2 94% Intake/Output Summary (Last 24 hours) at 04/09/12 0441 Last data filed at 04/08/12 1334 Gross per 24 hour Intake 840 ml Output 0 ml Net 840 ml General: Patient sitting up in bed. Mildly increased WOB. NC in place. HEENT: Normocephalic/Atraumatic, EOMI, MMM Respiratory: Loud and diffuse expiratory wheezing throughout with fair air movment. Cardiac: Regular rate and rhythm, normal S1/S2, no murmurs, rubs or gallops. Abdomen: +BS, soft, non-distended, non-tender. No masses or hepatosplenomegaly. No guarding or rigidity. Genitourinary: No avalos. Musculoskeletal: Normal symmetric muscle bulk and strength. Dermatologic: Per prior exam, bruising visible on proximal medial LUE. Psychiatric: Alert and oriented, answers questions appropriately. Laboratory: Recent Results (from the past 24 hour(s)) ELECTROLYTES Collection Time 04/08/12 0616 Component Value Range Sodium 142 136 - 145 (mEq/L) Potassium 3.3 (*) 3.5 - 5.0 (mEq/L) Chloride 103 96 - 110 (mEq/L) CO2 28 24 - 32 (mEq/L) BUN Collection Time 04/08/12 0616 Component Value Range BUN 9 (*) 10 - 26 (mg/dl) CREATININE Collection Time 04/08/12 0616 Component Value Range Creatinine 0.52 0.52 - 1.04 (mg/dl) GFR, Calculated >60 >60 (ml/min/1.73m2) HEMAGRAM AND DIFFERENTIAL Collection Time 04/08/12 0616 Component Value Range WBC 9.97 4.0 - 12.4 (K/cmm) RBC 3.73 (*) 3.86 - 5.04 (M/cmm) Hemoglobin 11.9 11.6 - 15.2 (gm/dl) HCT 34.9 34.9 - 44.4 (%) MCV 94 81 - 98 (fl) MCH 32.0 26.7 - 33.3 (pg) MCHC 34.2 32.1 - 35.9 (gm/dl) PLT 263 141 - 320 (K/cmm) RDW-CV 15.7 (*) 11.7 - 14.6 (%) Neutrophils 76.0 45.5 - 79.7 (%) Lymphocytes 19.0 15.0 - 46.8 (%) Monocytes 5.0 1.8 - 12.0 (%) ABS Neutrophils 7.58 2.20 - 8.85 (K/cmm) ABS Lymphs 1.89 1.09 - 3.30 (K/cmm) ABS Monocytes 0.50 0.1 - 0.8 (K/cmm) RBC Morphology Normal WBC Morphology 1+ Type of Diff: Manual BACTERIAL CULTURE/SMEAR, RESPIRATORY Collection Time 04/08/12 1304 Component Value Range Specimen Description Sputum Gram Smear Result No polys seen Gram Smear Result No alveolar macrophages seen Gram Smear Result Mod Gram positive cocci Gram Smear Result Mucus present Gram Smear Result Smear suggests minimal or no inflammation. Result PENDING Report Status PENDING POTASSIUM Collection Time 04/08/12 1538 Component Value Range Potassium 3.7 3.5 - 5.0 (mEq/L) Radiology: No new imaging Assessment & Plan by Problems: Impression: Liset Meadows is a 51 y.o. female with history of chronic back pain, obesity, asthma,narcolepsy, depression, anxiety, GERD, and migraine, who presented with a one-day history of shortness of breath, non-productive cough, and wheezing five days after diagnosis of asthma exacerbation and treatment with prednisone and Singulair. In the ED, she was saturating well on room air and was without leukocytosis. CXR showed findings c/w pneumonia, likely viral, and the patient was with diffuse rhonchi and wheezing on physical exam. She was started on azithromycin and blood cultures were obtained. There is concern for atypical PNA vs viral PNA vs asthma exacerbation in patient recently requiring prednisone for asthma managment. Again with diffuse expiratory wheezing and some rhonchi on physical exam today. Active Hospital Problem List: Atypical PNA with Secondary Asthma Exacerbation Assessment: As above Plan: -Work-up with: blood cultures (pending, but NTD), Legionella antigen (negative), Virology (negative) -Asthma: Albuterol Nebs PRN, prednisone 60mg BID. Continue home advair, monteleukast. - Will likely need home O2 evaluation tomorrow. - Pulmonary follow up as outpatient recommended. - Will give rx for nebs for home use as they seem to help here. - Continue to encourage IS use. Severe Major Depression without Psychotic Features and Anxiety Assessment/Plan. Chronic issue. Continue home ativan PRN, nortriptyline, sertraline. GERD and Peptic Ulcer Disease Assessment/Plan: Continue home PPI Chronic back pain, Cervicalgia, Lumbar Radicular Pain Assessment/Plan: Stable on current regimen. Continue home baclofen, lortab, lyrica, zoloft. Will add back Requip at night for restless legs. Impaired glucose tolerance Assessment/Plan: Last A1c 5.5 in 2005. Repeat A1c 04/07 6.0. Carb consistent diet. Narcolepsy Assessment/Plan: Stable issue. Continue home methylphenidate QAM; afternoon dose discontinued as patient c/o insomnia. Seasonal allergic rhinitis Assessment/Plan: Continue home fexofenadine, nasonex Ocular Rosacea Assessment/Plan: Last seen by adonis in January of 2012. Continue home doxycycline Nutrition Assessment: Carb consistent diet DVT Prophylaxis Plan: Heparin Disposition: Likely to home Code Status: FULL Patient & Plan discussed with Dr. Abena Jean MD 04/09/2012 16:09 [id number] Attestation statement: I saw and examined the patient and discussed assessment/plan with Dr. Jean and Ms. Meadows on 04/09. I agree with the findings and plan of care documented in the resident note. Time spent on floor was approximately 25 minutes. Rosetta Kraft DO Attending in Family Medicine * Rosetta Kraft DO - 04/08/2012 1212 EDT Family Medicine Service Progress Note Chief Complaint: Shortness of Breath 24-Hour Events: No acute events Patient to receive additional dose of prednisone tonight Subjective: Ms. Meadows feels winded this morning and is SOB at rest with wheezing. She feels some palpitations with exertion. She has a persistent non-productive cough. She notes congestion and rhinorrhea. No CP, N/V, abdominal pain, diarrhea. Her last BM was on Wednesday. No problems urinating. Overall she is feeling a little better. Review of Systems: Pertinent items are noted in Subjective/HPI Current Medications: Current Facility-Administered Medications Medication Route Frequency ??? predniSONE (DELTASONE) tablet 60 mg Oral QHS ??? albuterol (PROVENTIL) 2.5 mg /3 mL (0.083 %) nebulizer solution 2.5 mg Nebulization QID ??? albuterol (PROVENTIL) 2.5 mg /3 mL (0.083 %) nebulizer solution 2.5 mg Nebulization Q4H PRN ??? methylphenidate (RITALIN SR; METADATE ER; METHYLIN ER) ER tablet 40 mg Oral QD (BREAKFAST) ??? sumatriptan (IMITREX) tablet 50 mg Oral ONCE ??? doxycycline (VIBRA-TABS) tablet 100 mg Oral QHS ??? nortriptyline (PAMELOR) capsule 75 mg Oral QHS ??? acetaminophen-codeine (TYLENOL #3) 300-30 mg per tablet 1-2 Tab Oral Q4H PRN ??? fluticasone-salmeterol (ADVAIR) 500-50 mcg/dose diskus inhaler 1 Puff Inhalation BID ??? baclofen (LIORESAL) tablet 5-10 mg Oral TID PRN ??? cyclosporine (RESTASIS) 0.05 % ophthalmic emulsion 1 Drop Both Eyes Q12H ??? docusate sodium (COLACE) capsule 100 mg Oral BID PRN ??? fexofenadine (JUDITH) 12 hr tablet 180 mg Oral DAILY ??? hydrocodone-acetaminophen (LORTAB;VICODIN) 5-500 mg tablet 1 Tab Oral Q6H PRN ??? hydroxypropyl methylcellulose (ISOPTO TEARS) 0.5 % ophthalmic solution 1 Drop Both Eyes 5X DAILY ??? lorazepam (ATIVAN) tablet 0.5 mg Oral Q6H PRN ??? pregabalin (LYRICA) capsule 150 mg Oral TID ??? mometasone (NASONEX) 50 mcg/actuation nasal spray 2 [place] Nasal DAILY ??? montelukast (SINGULAIR) tablet 10 mg Oral QHS ??? sertraline (ZOLOFT) tablet 200 mg Oral DAILY ??? heparin injection 5,000 Units Subcutaneous Q8H ??? azithromycin (ZITHROMAX) tablet 250 mg Oral DAILY ??? predniSONE (DELTASONE) tablet 60 mg Oral DAILY ??? pantoprazole (PROTONIX) tablet 40 mg Oral DAILY Objective: Physical Exam: BP 105/58 Pulse 74 Temp(Src) 35.1 ??C (95.2 ??F) (Tympanic) Resp 18 Ht 165.1 cm (65) Wt 88.769 kg (195 lb 11.2 oz) BMI 32.57 kg/m2 SpO2 94% Intake/Output Summary (Last 24 hours) at 04/08/12 1212 Last data filed at 04/08/12 0945 Gross per 24 hour Intake 840 ml Output 0 ml Net 840 ml General: Patient sitting up in bed watching television. Mildly increased WOB. NC in place. HEENT: Normocephalic/Atraumatic, EOMI Respiratory: Loud and diffuse expiratory wheezing with scant rhonchi. Cardiac: Regular rate and rhythm, normal S1/S2, no murmurs, rubs or gallops. Abdomen: +BS, soft, non-distended, non-tender. No masses or hepatosplenomegaly. No guarding or rigidity. Genitourinary: Deferred. Without avalos. Musculoskeletal: Normal symmetric muscle bulk and strength. Dermatologic: Per prior exam, bruising visible on proximal medial LUE. Psychiatric: Alert and oriented, answers questions appropriately. Laboratory: Recent Results (from the past 24 hour(s)) ELECTROLYTES Collection Time 04/08/12 0616 Component Value Range Sodium 142 136 - 145 (mEq/L) Potassium 3.3 (*) 3.5 - 5.0 (mEq/L) Chloride 103 96 - 110 (mEq/L) CO2 28 24 - 32 (mEq/L) BUN Collection Time 04/08/12 0616 Component Value Range BUN 9 (*) 10 - 26 (mg/dl) CREATININE Collection Time 04/08/12 0616 Component Value Range Creatinine 0.52 0.52 - 1.04 (mg/dl) GFR, Calculated >60 >60 (ml/min/1.73m2) HEMAGRAM AND DIFFERENTIAL Collection Time 04/08/12 0616 Component Value Range WBC 9.97 4.0 - 12.4 (K/cmm) RBC 3.73 (*) 3.86 - 5.04 (M/cmm) Hemoglobin 11.9 11.6 - 15.2 (gm/dl) HCT 34.9 34.9 - 44.4 (%) MCV 94 81 - 98 (fl) MCH 32.0 26.7 - 33.3 (pg) MCHC 34.2 32.1 - 35.9 (gm/dl) PLT 263 141 - 320 (K/cmm) RDW-CV 15.7 (*) 11.7 - 14.6 (%) Neutrophils 76.0 45.5 - 79.7 (%) Lymphocytes 19.0 15.0 - 46.8 (%) Monocytes 5.0 1.8 - 12.0 (%) ABS Neutrophils 7.58 2.20 - 8.85 (K/cmm) ABS Lymphs 1.89 1.09 - 3.30 (K/cmm) ABS Monocytes 0.50 0.1 - 0.8 (K/cmm) RBC Morphology Normal WBC Morphology 1+ Type of Diff: Manual Radiology: No new imaging Assessment & Plan by Problems: Impression: Liset Meadows is a 51 y.o. female with history of chronic back pain, obesity, asthma,narcolepsy, depression, anxiety, GERD, and migraine, who presented with a one-day history of shortness of breath, non-productive cough, and wheezing five days after diagnosis of asthma exacerbation and treatment with prednisone and Singulair. In the ED, she was saturating well on room air and was without leukocytosis. CXR showed findings c/w pneumonia, likely viral, and the patient was with diffuse rhonchi and wheezing on physical exam. She was started on azithromycin and blood cultures were obtained. There is concern for atypical PNA (Legionella PNA is suggested by GABRIEL, mild cough, dyspnea, CP, diarrhea, N/V and M. Pneumonia is suggested by GABRIEL, malaise, fever, ear pain, rhinorrhea) v viral PNA v asthma exacerbation in patient recently requiring prednisone for asthma managment. Again with diffuse expiratory wheezing and some rhonchi on physical exam today. Legionella antigen negative, virology negative. Active Hospital Problem List: Atypical PNA with Secondary Asthma Exacerbation Assessment: As above Plan: -Work-up with: blood cultures (pending), sputum culture (not yet collected in patient with non-productive cough), Legionella antigen (negative), Virology (negative) -Asthma: Albuterol Nebs PRN, prednisone 60 mg x 5 days (today is day 3/5). Will give one additionaldose of 60 mg prednisone tonight. Continue home advair, monteleukast. -Atypical PNA: azithromycin (day 3/4) Severe Major Depression without Psychotic Features and Anxiety Assessment/Plan. Chronic issue. Continue home ativan PRN, nortriptyline, sertraline. GERD and Peptic Ulcer Disease Assessment/Plan: Continue home PPI Chronic back pain, Cervicalgia, Lumbar Radicular Pain Assessment/Plan: Stable on current regimen. Continue home baclofen, lortab, lyrica, zoloft Impaired glucose tolerance Assessment/Plan: Last A1c 5.5 in 2005. Repeat A1c 04/07 6.0. Carb consistent diet. Narcolepsy Assessment/Plan: Stable issue. Continue home methylphenidate QAM; afternoon dose discontinued as patient c/o insomnia. Seasonal allergic rhinitis Assessment/Plan: Continue home fexofenadine, nasonex Ocular Rosacea Assessment/Plan: Last seen by ophtho in January of 2012. Continue home doxycycline Nutrition Assessment: Carb consistent diet DVT Prophylaxis Plan: Heparin Disposition: Likely to home Code Status: FULL Patient & Plan discussed with Dr. Kraft Signed, Graciela Lin MD, Pager [phone] Dental Laboratory Technician 04/08/2012 12:12 Attestation statement: I saw and examined the patient and discussed assessment/plan with Dr. Linand Ms. Meadows. I agree with the findings and plan of care documented in the resident note. Looking much better this afternoon! Feeling well, oxygen is off, minimal dyspnea at rest, though still with ALEJANDRE. Time spent on floor was approximately 25 minutes on 04/08/12. Rosetta Kraft DO Attending in Family Medicine * Rosetta Kraft DO - 04/07/2012 0758 EDT Family Medicine Service Progress Note Chief Complaint: Shortness of Breath 24-Hour Events: Patient received vicodin x 1 for back pain No acute events Subjective: Ms. Meadows' URI symptoms have resolved and her SOB is improving. She now feels SOB with exertion mostly (mild SOB at rest). She noted some wheezing and CP/back pain 2/2 her non-productive cough. Overall she feels about the same as yesterday. No F/C, palpitations, N/V, abdominal pain, diarrhea, constipation, or urinary symptoms. Review of Systems: Pertinent items are noted in Subjective/HPI Current Medications: Current Facility-Administered Medications Medication Route Frequency ??? methylphenidate (RITALIN SR; METADATE ER; METHYLIN ER) ER tablet 40 mg Oral QD (BREAKFAST) ??? sumatriptan (IMITREX) tablet 50 mg Oral ONCE ??? doxycycline (VIBRA-TABS) tablet 100 mg Oral QHS ??? nortriptyline (PAMELOR) capsule 75 mg Oral QHS ??? albuterol (PROVENTIL) 2.5 mg /3 mL (0.083 %) nebulizer solution 2.5 mg Nebulization Q4H WHILE AWAKE ??? acetaminophen-codeine (TYLENOL #3) 300-30 mg per tablet 1-2 Tab Oral Q4H PRN ??? fluticasone-salmeterol (ADVAIR) 500-50 mcg/dose diskus inhaler 1 Puff Inhalation BID ??? baclofen (LIORESAL) tablet 5-10 mg Oral TID PRN ??? cyclosporine (RESTASIS) 0.05 % ophthalmic emulsion 1 Drop Both Eyes Q12H ??? docusate sodium (COLACE) capsule 100 mg Oral BID PRN ??? fexofenadine (JUDITH) 12 hr tablet 180 mg Oral DAILY ??? hydrocodone-acetaminophen (LORTAB;VICODIN) 5-500 mg tablet 1 Tab Oral Q6H PRN ??? hydroxypropyl methylcellulose (ISOPTO TEARS) 0.5 % ophthalmic solution 1 Drop Both Eyes 5X DAILY ??? lorazepam (ATIVAN) tablet 0.5 mg Oral Q6H PRN ??? pregabalin (LYRICA) capsule 150 mg Oral TID ??? methylphenidate (RITALIN;METHYLIN) tablet 10 mg Oral USER SPECIFIED ??? mometasone (NASONEX) 50 mcg/actuation nasal spray 2 [place] Nasal DAILY ??? montelukast (SINGULAIR) tablet 10 mg Oral QHS ??? sertraline (ZOLOFT) tablet 200 mg Oral DAILY ??? heparin injection 5,000 Units Subcutaneous Q8H ??? azithromycin (ZITHROMAX) tablet 250 mg Oral DAILY ??? predniSONE (DELTASONE) tablet 60 mg Oral DAILY ??? pantoprazole (PROTONIX) tablet 40 mg Oral DAILY Objective: Physical Exam: BP 128/68 Pulse 72 Temp(Src) 36.5 ??C (97.7 ??F) (Tympanic) Resp 18 Ht 165.1 cm (65) Wt 88.769 kg (195 lb 11.2 oz) BMI 32.57 kg/m2 SpO2 93% Intake/Output Summary (Last 24 hours) at 04/07/12 0758 Last data filed at 04/06/12 1827 Gross per 24 hour Intake 960 ml Output 0 ml Net 960 ml General: Patient lying on her L side in bed watching television. NC in place. HEENT: Normocephalic/Atraumatic, EOMI Respiratory: Loud and diffuse expiratory wheezing with rhonchi that clear with coughing. No increased WOB. Cardiac: Decreased heart sounds secondary to wheezing. Regular rate and rhythm, normal S1/S2, no murmurs, rubs or gallops. Abdomen: +BS, soft, non-distended, non-tender. No masses or hepatosplenomegaly. Genitourinary: Deferred. Without avalos. Musculoskeletal: Normal symmetric muscle bulk and strength. Dermatologic: Bruising visible on proximal medial LUE. Psychiatric: Alert and oriented, answers questions appropriately. Laboratory: No results found for this or any previous visit (from the past 24 hour(s)). Radiology: No new imaging Assessment & Plan by Problems: Impression: Liset Meadows is a 51 y.o. female with history of chronic back pain, obesity, asthma,narcolepsy, depression, anxiety, GERD, and migraine, who presented with a one-day history of shortness of breath, non-productive cough, and wheezing five days after diagnosis of asthma exacerbation and treatment with prednisone and Singulair. In the ED, she was saturating well on room air and was without leukocytosis. CXR showed findings c/w pneumonia, likely viral, and the patient was with diffuse rhonchi and wheezing on physical exam. She was started on azithromycin and blood cultures were obtained. There is concern for atypical PNA (Legionella PNA is suggested by GABRIEL, mild cough, dyspnea, CP, diarrhea, N/V and M. Pneumonia is suggested by GABRIEL, malaise, fever, ear pain, rhinorrhea) v asthmaexacerbation in patient recently requiring prednisone for asthma managment. Again with diffuse expiratory wheezing and rhonchi on physical exam today. Legionella antigen negative. Active Hospital Problem List: Atypical PNA with Secondary Asthma Exacerbation Assessment: As above Plan: -Work-up with: blood cultures, sputum culture (not yet collected in patient with non-productive cough), Legionella antigen (negative), Virology -Asthma: Albuterol Nebs PRN, prednisone 60 mg x 5 days (today is day 2/5). Continue home advair, monteleukast. -Atypical PNA: azithromycin (day 2/4) Severe Major Depression without Psychotic Features and Anxiety Assessment/Plan. Chronic issue. Continue home ativan PRN, nortriptyline, sertraline. GERD and Peptic Ulcer Disease Assessment/Plan: Continue home PPI Chronic back pain, Cervicalgia, Lumbar Radicular Pain Assessment/Plan: Stable on current regimen. Continue home baclofen, lortab, lyrica, zoloft Impaired glucose tolerance Assessment/Plan: Last A1c 5.5 in 2005. Re-check re-ordered for this morning (not yet collected); carb consistent diet. Narcolepsy Assessment/Plan: Stable issue. Continue home methylphenidate. Seasonal allergic rhinitis Assessment/Plan: Continue home fexofenadine, nasonex Ocular Rosacea Assessment/Plan: Last seen by adonis in January of 2012. Continue home doxycycline Nutrition Assessment: Carb consistent diet DVT Prophylaxis Plan: Heparin Disposition: Likely to home Code Status: FULL Patient & Plan discussed with Dr. Kraft Signed, Graciela Lin MD, Pager [phone] Dental Laboratory Technician 04/07/2012 7:58 Attestation statement: I saw and examined the patient and discussed assessment/plan with Dr. Linand Ms. Meadows. I agree with the findings and plan of care documented in the resident note. Time spent on floor was approximately 25 minutes on 04/07/12. Rosetta Kraft DO Attending in Family Medicine * Cate Burciaga RN - 04/06/2012 8050 EDT Brief Case Management Assessment Reason for Hospitalization: Cough, wheezing with T to 102. Hx of asthma, narcolepsy, GERD. PNA with asthma exacerbation. Flu swab, cultures pending, IV>po Azithromycin, IVF on admission. Current Living Arrangements: Lives alone in [place]; currently from who lives near by. Independent with mobility at baseline. 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 Identified Case Management/Social Work Needs and Issues (housing, care, financial, transportation, cultural, spiritual, emotional, legal, etc.): Insurance coverage is Plus. Patient is [facility]. Case Management Actions (completed and planned): Met with patient who still states her breathing is not at baseline. I don't feel too good. Deniesany needs at this time. Will continue to follow and assist as indicated. * Rosetta Kraft DO - 04/06/2012 8297 EDT Family Medicine Service Progress Note Chief Complaint: Shortness of Breath 24-Hour Events: Patient admitted to the Family Medicine Service for asthma exacerbation v atypical PNA. Started on albuterol nebs, prednisone, azithromycin Legionella antigen negative Subjective: Ms. Meadows was not feeling well this morning. She noted a pounding headache, sinus pain and pressure, nasal congestion and rhinorrhea, b/l ear pain, and lacrimation. She feels short of breath at rest and is wheezing. Chest is less tight in comparison to yesterday. She feels she must exert herself (i.e. her SOB worsens) to use the commode. She continues to wheeze. Her abdomen hurts 2/2 coughing. No F/C, CP, palpitations, N/V, diarrhea, constipation, or urinary symptoms. Review of Systems: Pertinent items are noted in Subjective/HPI Current Medications: Current Facility-Administered Medications Medication Route Frequency ??? acetaminophen-codeine (TYLENOL #3) 300-30 mg per tablet 1-2 Tab Oral Q4H PRN ??? fluticasone-salmeterol (ADVAIR) 500-50 mcg/dose diskus inhaler 1 Puff Inhalation BID ??? baclofen (LIORESAL) tablet 5-10 mg Oral TID PRN ??? cyclosporine (RESTASIS) 0.05 % ophthalmic emulsion 1 Drop Both Eyes Q12H ??? docusate sodium (COLACE) capsule 100 mg Oral BID PRN ??? doxycycline (VIBRA-TABS) tablet 100 mg Oral DAILY ??? fexofenadine (JUDITH) 12 hr tablet 180 mg Oral DAILY ??? hydrocodone-acetaminophen (LORTAB;VICODIN) 5-500 mg tablet 1 Tab Oral Q6H PRN ??? hydroxypropyl methylcellulose (ISOPTO TEARS) 0.5 % ophthalmic solution 1 Drop Both Eyes 5X DAILY ??? lorazepam (ATIVAN) tablet 0.5 mg Oral Q6H PRN ??? pregabalin (LYRICA) capsule 150 mg Oral TID ??? methylphenidate (RITALIN SR; METADATE ER; METHYLIN ER) ER tablet 20 mg Oral QD (BREAKFAST) ??? methylphenidate (RITALIN;METHYLIN) tablet 10 mg Oral USER SPECIFIED ??? mometasone (NASONEX) 50 mcg/actuation nasal spray 2 [place] Nasal DAILY ??? montelukast (SINGULAIR) tablet 10 mg Oral QHS ??? nortriptyline (PAMELOR) capsule 75 mg Oral DAILY ??? sertraline (ZOLOFT) tablet 200 mg Oral DAILY ??? heparin injection 5,000 Units Subcutaneous Q8H ??? azithromycin (ZITHROMAX) tablet 250 mg Oral DAILY ??? albuterol (PROVENTIL) 2.5 mg /3 mL (0.083 %) nebulizer solution 2.5 mg Nebulization Q4H PRN ??? predniSONE (DELTASONE) tablet 60 mg Oral DAILY ??? pantoprazole (PROTONIX) tablet 40 mg Oral DAILY Objective: Physical Exam: BP 115/60 Pulse 74 Temp(Src) 36.8 ??C (98.2 ??F) (Tympanic) Resp 20 Ht 165.1 cm (65) Wt 88.769 kg (195 lb 11.2 oz) BMI 32.57 kg/m2 SpO2 92% Intake/Output Summary (Last 24 hours) at 04/06/12 0829 Last data filed at 04/06/12 0641 Gross per 24 hour Intake 500 ml Output 600 ml Net -100 ml General: Patient lying supine in bed. Appears uncomfortable. HEENT: Normocephalic/Atraumatic, EOMI, sclera not injected Respiratory: Diffuse expiratory wheezing. No increased WOB. Cardiac: Decreased heart sounds secondary to wheezing. Regular rate and rhythm, normal S1/S2, no murmurs, rubs or gallops. Abdomen: Non-distended, positive bowel sounds, soft, non-tender without guarding, rigidity or rebound. No masses or hepatosplenomegaly. Genitourinary: Deferred. Without avalos. Musculoskeletal: Normal symmetric muscle bulk and strength. Dermatologic: No rashes or lesions. Psychiatric: Alert and oriented, answers questions appropriately. Laboratory: Recent Results (from the past 24 hour(s)) PROFILE ED CARDIAC PACK Collection Time 04/05/12 1219 Component Value Range Hold Blue Top Clotted WBC 10.29 4.0 - 12.4 (K/cmm) RBC 4.01 3.86 - 5.04 (M/cmm) Hemoglobin 12.9 11.6 - 15.2 (gm/dl) HCT 36.9 34.9 - 44.4 (%) MCV 92 81 - 98 (fl) MCH 32.2 26.7 - 33.3 (pg) MCHC 34.9 32.1 - 35.9 (gm/dl) PLT 268 141 - 320 (K/cmm) RDW-CV 15.7 (*) 11.7 - 14.6 (%) Sodium 139 136 - 145 (mEq/L) Potassium 3.9 3.5 - 5.0 (mEq/L) Chloride 105 96 - 110 (mEq/L) CO2 27 24 - 32 (mEq/L) BUN 9 (*) 10 - 26 (mg/dl) Creatinine 0.50 (*) 0.52 - 1.04 (mg/dl) GFR, Calculated >60 >60 (ml/min/1.73m2) Glucose, Screening 124 (*) 70 - 100 (mg/dl) Magnesium 2.0 1.7 - 2.8 (mg/dl) CK <25 (*) 30 - 135 (U/L) MB <0.22 <2.95 (ng/ml) Troponin I <0.034 <0.034 (ng/ml) Neutrophils 86.0 (*) 45.5 - 79.7 (%) Lymphocytes 10.0 (*) 15.0 - 46.8 (%) Monocytes 2.0 1.8 - 12.0 (%) Eosinophils 1.0 0.6 - 6.9 (%) Basophils 1.0 0.2 - 1.4 (%) ABS Neutrophils 8.85 2.20 - 8.85 (K/cmm) ABS Lymphs 1.03 (*) 1.09 - 3.30 (K/cmm) ABS Monocytes 0.21 0.1 - 0.8 (K/cmm) ABS Eosinophils 0.10 0.03 - 0.61 (K/cmm) ABS Basophils 0.10 0.01 - 0.11 (K/cmm) RBC Morphology Normal WBC Morphology 1+ Type of Diff: Manual REDRAW LABS Collection Time 04/05/12 1219 Component Value Range Redraw HLD[facility] LEGIONELLA ANTIGEN DETECTION, URINE Collection Time 04/05/12 2234 Component Value Range Specimen Description Urine Result Value: No Legionella pneumophila serogroup 1 antigen detected. Report Status 04/05/2012 Final Radiology: No new imaging Assessment & Plan by Problems: Impression: Liset Meadows is a 51 y.o. female with history of chronic back pain, obesity, asthma,narcolepsy, depression, anxiety, GERD, and migraine, who presented with a one-day history of shortness of breath, non-productive cough, and wheezing five days after diagnosis of asthma exacerbation and treatment with prednisone and Singulair. In the ED, the patient was saturating well on room air and was without leukocytosis. TnI ordered for CP was negative and EKG revealed normal sinus rhythm, heart rate 70, and no acute ST-T wave changes. CXR, however, showed findings c/w pneumonia, likely viral, and the patient was with diffuse rhonchi and wheezing on physical exam. She was started on azithromycin and blood cultures were obtained. There is concern for atypical PNA (Legionella PNA is suggested by GABRIEL, mild cough, dyspnea, CP, diarrhea, N/V and M. Pneumonia is suggested by GABRIEL, malaise, fever, ear pain, rhinorrhea) v asthma exacerbation in patient recently requiring prednisone for asthmamanagment. With diffuse expiratory wheezing on physical exam today. Legionella antigen negative. Active Hospital Problem List: Atypical PNA with secondary asthma exacerbation Assessment: As above Plan: -Work-up with: blood cultures, sputum culture, Legionella antigen (negative), Virology -Asthma: Albuterol Nebs PRN, prednisone 60 mg x 5 days (today is day 1/5). Continue home advair, monteleukast. -Atypical PNA: azithromycin (day 1/4) Severe Major Depression without Psychotic Features and Anxiety Assessment/Plan. Chronic issue. Continue home ativan PRN, nortriptyline, sertraline. GERD and Peptic Ulcer Disease Assessment/Plan: Continue home PPI Chronic back pain, Cervicalgia, Lumbar Radicular Pain Assessment/Plan: Stable on current regimen. Continue home baclofen, lortab, lyrica, zoloft Impaired glucose tolerance Assessment/Plan: Last A1c 5.5 in 2005. Re-check pending; carb consistent diet. Narcolepsy Assessment/Plan: Stable issue. Continue home methylphenidate - will check dosing with pharmacy. Seasonal allergic rhinitis Assessment/Plan: Continue home fexofenadine, nasonex Ocular Rosacea Assessment/Plan: Last seen by adonis in January of 2012. Continue home doxycycline Nutrition Assessment: Carb consistent diet DVT Prophylaxis Plan: Heparin Disposition: Likely to home Code Status: FULL Patient & Plan discussed with Dr. Kraft Signed, Graciela Lin MD, Pager [phone] Dental Laboratory Technician 04/06/2012 8:29 Attestation statement: I saw and examined the patient and discussed assessment/plan with Dr. Vizcarra Ms. Meadows. I agree with the findings and plan of care documented in the resident note with addition of start of home medication imitrex for treatment of migraine. Time spent on floor was approx imately 25 minutes. Rosetta Kraft DO Attending in Family Medicine documented in this encounter H&P Notes * Rosetta Kraft DO - 04/05/2012 1612 EDT Family Medicine Service History & Physical Chief Complaint: Shortness of Breath History of Present Illness: Liset Meadows is a 51 y.o.female with history of chronic back pain, obesity, asthma, narcolepsy, depression, anxiety, GERD, and migraine, who presents with shortness of breath. She noted gradual-onset SOB yesterday with accompanying non-productive cough and wheezing. She also noted intermittent chest pain that is like a little bit of tightening in the center of my chest ans is without aggravating or alleviating factors. She denied new medications, recent viral illnesses, and sick contacts. Of note, she saw Dr. Munoz on 03/31 and was diagnosed with poorly-controlled asthma and was started on a prednisone burst and Singulair. Review Of Systems: ROS positive for: fevers (102 orally, afebrile in ED), chills, pounding GABRIEL, b/l ear pain, sinus pain/pressure, nasal congestion, rhinorrhea, chest tightness (not pain), abdominal pain 2/2 coughing, nausea, vomiting x 1 today, diarrhea off and on for a couple days ROS negative for: vision changes, eye pain/redness, tinnitus, ear discharge, sore throat, palpitations, constipation, problems urinating Past Medical History: PCP: Jean Munoz MD [...] Ankle fracture surgery 04/01/10 left ankle [facility] ??? Cyst incision and drainage 09/17/10 left cheek ??? Fine needle aspiration 09/19/10 left cheek History Social History ??? Marital Status: Spouse Name: N/A Number of Children: N/A ??? Years of Education: N/A Occupational History ??? None Social History Main Topics ??? Smoking status: Former Smoker -- 0.2 packs/day for 30 years Types: Cigarettes Quit date: 10/14/2010 ??? Smokeless tobacco: Never Used ??? Alcohol Use: No rarely ??? Drug Use: No no longer using. ??? Sexually Active: Not on file Other Topics Concern ??? Not on file Social History Narrative from [place] (ETOH)Son Alexi and Daughter JenniferCurrently [facility] Family History Problem Relation Age of Onset ??? Cancer Father esophageal ??? Heart Attack Father ??? Cataract Father ??? Cancer Paternal Aunt breast ??? Migraines Maternal Aunt ??? Stroke Maternal Grandmother ??? Heart Attack Maternal Grandmother ??? Heart Disease Maternal Grandmother ??? Cataract Maternal Grandmother ??? Cancer Paternal Grandmother leukemia ??? Cataract Mother ??? Cancer Mother ??? Cataract Maternal Grandfather Current Medications: Current Facility-Administered Medications Medication Route Frequency ??? azithromycin (ZITHROMAX) 500 mg in dextrose 5% (D5W) 250 mL IVPB Intravenous Now Current Outpatient Prescriptions Medication Sig Dispense Refill ??? montelukast (SINGULAIR) 10 mg tablet Take 1 Tab by mouth at bedtime. 30 Tab 2 ??? predniSONE (DELTASONE) 20 mg tablet Take 2 Tabs by mouth daily for 5 days. 10 Tab 3 ??? hydrocodone-acetaminophen (LORTAB;VICODIN) 5-500 mg tablet Take 1 Tab by mouth every 6 hours asneeded for Pain. 112 Tab 0 ??? methylphenidate (RITALIN SR; METADATE ER; [...] FOR 1 DOSE 9 Each 2 ??? lorazepam (ATIVAN) 0.5 mg Tab Take 1 Tab by mouth every 6 hours as needed (anxiety). 30 Each 0 ??? baclofen (LIORESAL) 10 mg [...] Drop to eye 2 times daily. ??? Flaxseed Oil Oil by Misc.(Non-Drug; Combo Route) route. ??? hydroxypropyl methylcellulose (ISOPTO TEARS) 0.5 % ophthalmic solution Place 1 Drop into both eyes 5 times daily. ??? promethazine (PHENERGAN) 25 mg tablet Take 1 Tab by mouth every 6 hours as needed for Nausea. 45 Each 3 ??? docusate sodium (COLACE) 100 mg capsule Take 1 Cap by mouth 2 times daily as needed for Constipation. Allergies: Allergies Allergen Reactions ??? Toradol (Ketorolac Tromethamine) Hives ??? Motrin (Ibuprofen) Itching Objective: Physical Exam: BP 97/52 Temp 37.7 ??C (99.9 ??F) Resp 14 Ht 165.1 cm (65) Wt 88.769 kg (195 lb 11.2 oz) BMI 32.57 kg/m2 SpO2 95% General: Patient lying on stretcher receiving albuterol treatment HEENT: Normocephalic/Atraumatic, MMM, EOMI, PERRL, TM clear b/l Neck: No cervical LAD Respiratory: Patient with mildly increased work of breathing with normal RR. Lungs diffusely rhonchorous, with some clearing after coughing. Diffuse expiratory wheezing. Cardiac: Decreased heart sounds secondary to wheezing. Regular rate and rhythm, normal S1/S2, no murmurs, rubs or gallops. Abdomen: Non-distended, positive bowel sounds, soft, non-tender without guarding, rigidity or rebound. No masses or hepatosplenomegaly. Genitourinary: Deferred. Without avalos. Musculoskeletal: Normal symmetric muscle bulk and strength. Dermatologic: No rashes or lesions. Psychiatric: Alert and oriented, answers questions appropriately. Affect appropriate. Laboratory: Recent Results (from the past 24 hour(s)) PROFILE ED CARDIAC PACK Collection Time 04/05/12 1219 Component Value Range Hold Blue Top Clotted WBC 10.29 4.0 - 12.4 (K/cmm) RBC 4.01 3.86 - 5.04 (M/cmm) Hemoglobin 12.9 11.6 - 15.2 (gm/dl) HCT 36.9 34.9 - 44.4 (%) MCV 92 81 - 98 (fl) MCH 32.2 26.7 - 33.3 (pg) MCHC 34.9 32.1 - 35.9 (gm/dl) PLT 268 141 - 320 (K/cmm) RDW-CV 15.7 (*) 11.7 - 14.6 (%) Sodium 139 136 - 145 (mEq/L) Potassium 3.9 3.5 - 5.0 (mEq/L) Chloride 105 96 - 110 (mEq/L) CO2 27 24 - 32 (mEq/L) BUN 9 (*) 10 - 26 (mg/dl) Creatinine 0.50 (*) 0.52 - 1.04 (mg/dl) GFR, Calculated >60 >60 (ml/min/1.73m2) Glucose, Screening 124 (*) 70 - 100 (mg/dl) Magnesium 2.0 1.7 - 2.8 (mg/dl) CK <25 (*) 30 - 135 (U/L) MB <0.22 <2.95 (ng/ml) Troponin I <0.034 <0.034 (ng/ml) Neutrophils 86.0 (*) 45.5 - 79.7 (%) Lymphocytes 10.0 (*) 15.0 - 46.8 (%) Monocytes 2.0 1.8 - 12.0 (%) Eosinophils 1.0 0.6 - 6.9 (%) Basophils 1.0 0.2 - 1.4 (%) ABS Neutrophils 8.85 2.20 - 8.85 (K/cmm) ABS Lymphs 1.03 (*) 1.09 - 3.30 (K/cmm) ABS Monocytes 0.21 0.1 - 0.8 (K/cmm) ABS Eosinophils 0.10 0.03 - 0.61 (K/cmm) ABS Basophils 0.10 0.01 - 0.11 (K/cmm) RBC Morphology Normal WBC Morphology 1+ Type of Diff: Manual REDRAW LABS Collection Time 04/05/12 1219 Component Value Range Redraw HLDBLU Radiology: Chest PA and Lateral, 04/05/12, Findings: Patchy bilateral interstitial and airspace opacities most consistent with pneumonia. The lungs look otherwise clear and there is no pleural fluid. The cardiacsilhouette is normal and there is no convincing evidence of pulmonary edema. The skeleton is grossly unremarkable for age aside from lower cervical anterior fixation. Impression: Findings consistent with pneumonia, most likely viral given the diffuse in nature and interstitial component Assessment & Plan by Problems: Impression: Liset Meadows is a 51 y.o.female with history of chronic back pain, obesity, asthma, narcolepsy, depression, anxiety, GERD, and migraine, who presented with a one-day history of shortness of breath, non-productive cough, and wheezing five days after diagnosis of asthma exacerbation and treatment with prednisone and Singulair. In the ED, the patient was saturating well on room air and was without leukocytosis. TnI ordered for CP was negative and EKG revealed normal sinus rhythm, heart rate 70, and no acute ST-T wave changes. CXR, however, showed findings c/w pneumonia, likely viral, and the patient was with diffuse rhonchi and wheezing on physical exam. She was started on azithromycin and blood cultures were obtained. There is concern for atypical PNA (Legionella PNA is suggested by GABRIEL, mild cough, dyspnea, CP, diarrhea, N/V and M. Pneumonia is suggested by GABRIEL, malaise, fever, ear pain, rhinorrhea) v asthma exacerbation in patient recently requiring prednisone for asthma managment. The patient was admitted to the Family Medicine Service for antibiotics and monitoring ofher respiratory status. Active Hospital Problem List: Atypical PNA with secondary asthma exacerbation Assessment: As above Plan: -Work-up with: blood cultures, sputum culture, Legionella antigen, Virology (on droplet precautions) -Asthma: Albuterol Nebs PRN, prednisone 60 mg x 5 days. Continue home advair, monteleukast. -Atypical PNA: azithromycin Severe Major Depression without Psychotic Features and Anxiety Assessment/Plan. Chronic issue. Continue home ativan PRN, nortriptyline, sertraline. GERD and Peptic Ulcer Disease Assessment/Plan: Continue home PPI Chronic back pain, Cervicalgia, Lumbar Radicular Pain Assessment/Plan: Stable on current regimen. Continue home baclofen, lortab, lyrica, zoloft Impaired glucose tolerance Assessment/Plan: Last A1c 5.5 in 2005. Will plan to re-check with morning labs and order carb consistent diet. Narcolepsy Assessment/Plan: Stable issue. Continue home methylphenidate Seasonal allergic rhinitis Assessment/Plan: Continue home fexofenadine, nasonex Ocular Rosacea Assessment/Plan: Last seen by ophtho in January of 2012. Continue home doxycycline Nutrition Assessment: Carb consistent diet DVT Prophylaxis Plan: Heparin Disposition: Likely to home Code Status: FULL Patient & Plan discussed with Dr. Kraft Signed: Graciela Lin MD, [phone] 04/05/2012 22:00 Attestation statement: I saw and examined the patient and discussed assessment/plan with Dr. Linand Ms. Meadows. I agree with the findings and plan of care documented in the resident note. Time spent on floor was approximately 60 minutes. Rosetta Kraft DO Attending in Family Medicine documented in this encounter Procedure Notes * Radha Ledesma RT - 04/11/2012 1144 EDTAssociated Order(s): HOME O2 EVAL HOME 02 EVALUATION 6 Minute Walk Test / Interpretation Name: Liset Meadows Date of : 1960 DIAGNOSIS: ALEJANDRE RESTING O2 TITRATION FLOW 2.5 RA SPO2 98 % 92% % % % % Walking without assistive device. TIME HR SPO2 LPM COMMENTS Standing 95 92 RA 30 second 102 89 RA Walking 1 minute 100 81 RA Resting, Increased to 1L 1 min/30 sec 99 82 1L Resting, Increased to 2L 2 minutes 86 87 2L Resting, Increased to 3L 2 min/30 sec 92 91 3L Resting 3 minutes 84 94 3L Resting 3 min/30 sec 87 95 3L Walking 4 minutes 89 95 3L Walking 4 min/30 sec 94 90 3L Walking 5 minutes 96 89 3L Resting, Increased to 4L 5 minutes/30 sec 92 91 4L Walking 6 minutes 97 92 4L Walking Distance walked 150 feet. RECOMMENDATIONS Flow rate: RA resting, 4L exercise. Re-evaluate in 1 month(s). PCP: Jean Munoz MD Therapist Signature: RT ANIRUDH Expires: 04-13-12 * FLAME HARDENING MACHINE OPERATOR, SCAN 2 - 04/11/2012 0934 EDTAssociated Order(s): ECG REPORT - SCANNED documented in this encounter ED Notes * Gisselle Huang RN - 04/05/2012 1735 EDT Pt up to commode with 1 assist. Voided ~ 200 ml concentrated urine. Requesting something for headache. * Gisselle Huang RN - 04/05/2012 1538 EDT Coarse lung sounds remain throughout. Temp 37.5. NS bolus infusing. * Gisselle Huang RN - 04/05/2012 1406 EDT Blood cultures x2 sent to lab. * Gisselle Huang RN - 04/05/2012 1330 EDT Sp02 93-94% on room air. Pt placed on 2L 02 via nc. * Gisselle Haung RN - 04/05/2012 1320 EDT Pt ambulated to bathroom independently. Pt c/o nausea, medicated with zofran. Pt requesting something for headache. Temp now 37.6. Pt medicated with Tylenol. Will reassess. VSS * Gisselle Huang RN - 04/05/2012 1255 EDT Pt back from chest xray. Awaiting results. Sp02 95% on r/a. Pt states no relief from duo neb. * Azam Jones - 04/05/2012 1227 EDT Blood drawn via saline lock per protocol, rainbow tube(s) sent to lab per order. * Jorge Rutledge MD - 04/05/2012 1214 EDT DOS: 04/05/2012 Chief Complaint Patient presents with ??? Shortness of Breath SOB and CP beginning yesterday. Also arrives c/o headache (no relief from imitrex) this am. States that she had a fever last night of 102, but arrives afebrile. Decreased appetite x3 days. Hx asthma The patient is a 51 y.o. female who presents today with Shortness of Breath HPI Comments: The patient is a 51-year-old female with a history of asthma, who yesterday completeda 5 day course of oral prednisone,and now presents due to increasing shortness of breath. Patient states that last evening she developed a temperature of 102. On arrival to the emergency department the patient is afebrile. Patient has had a nonproductive cough. Patient has noted wheezing. Patient notes sharp chest pain with the cough. Patient denies sore throat, facial pain, earache. Patient denies abdominal pain, nausea, vomiting, diarrhea. Patient has noted diminished appetite over the past 3days. Patient denies skin rashes. Patient denies dysuria or urinary frequency. Patient now presentsfor further evaluation treatment. The history is provided by the patient. Shortness of Breath This is a recurrent problem. The problem occurs intermittently.The current episode started yesterday. The problem has been rapidly worsening. Associated symptoms include a fever, headaches, cough, wheezing and chest pain (sharp chest pain with the cough). Pertinent negatives include no rhinorrhea, no sore throat, no swollen glands, no ear pain, no neck pain, no sputum production, no hemoptysis, no syncope, no vomiting, no abdominal pain, no rash, no leg pain and no leg swelling. It is unknown what precipitated the problem. Risk factors include smoking. Associated medical issues include asthma. Review of Systems Constitutional: Positive for fever, appetite change (diminished) and fatigue. Negative for chills and diaphoresis. HENT: Negative for ear pain, sore throat, rhinorrhea and neck pain. Eyes: Negative for visual disturbance. Respiratory: Positive for cough, chest tightness, shortness of breath and wheezing. Negative for hemoptysis and sputum production. Cardiovascular: Positive for chest pain (sharp chest pain with the cough). Negative for leg swelling and syncope. Gastrointestinal: Negative for nausea, vomiting, abdominal pain and diarrhea. Genitourinary: Negative for hematuria and difficulty urinating. Musculoskeletal: Negative for back pain. Skin: Negative for rash. Neurological: Positive for headaches. Negative for dizziness, weakness, light- headedness and numbness. Hematological: Does not bruise/bleed easily. Psychiatric/Behavioral: Negative for confusion and agitation. All other systems reviewed and are negative. [...] Ankle fracture surgery 04/01/10 left ankle [facility] ??? Cyst incision and drainage [...] ??? Cancer Mother ??? Cataract Maternal Grandfather Vital Signs Heart Rate: 68 BPM Resp: 13 SpO2: 94 % BP: 115/55 mmHg BP Device: BP Machine Patient Position: Sitting BP Cuff Location: Left arm O2 Flow Rate (L/min): 0 l/min Physical Exam Nursing note and vitals reviewed. [...] heart sounds and intact distal pulses. Pulmonary/Chest: No respiratory distress. She has wheezes. She exhibits no tenderness. Abdominal: Soft. Bowel sounds are normal. There is no tenderness. Musculoskeletal: Normal range of motion. She exhibits no edema. Neurological: She is alert and oriented to person, place, and time. She has normal strength. No sensory deficit. Skin: Skin is warm and dry. No rash noted. Psychiatric: She has a normal mood and affect. Radiology orders: CHEST PA AND LATERAL CHEST PA AND LATERAL Final result not shown here.: EKG 12-LEAD (Results Pending) Procedures ED Course: A medical screening exam was performed. The patient is a 51-year-old female who presents with chiefcomplaint of fever, nonproductive cough, shortness of breath and wheezing. Patient recently completed a five-day course of oral prednisone for wheezing. Physical exam as above. EKG normal sinus rhythm, heart rate 70, no acute ST-T wave changes Treated with a DuoNeb. Chest y-nte-hahovkks with radiologist, consistent with diffuse infiltrate of either viral or atypical bacteria origin Laboratory tests-reviewed. Blood cultures obtained. Patient treated with IV azithromycin. Patient treated with intravenous normal saline. Patient continues to wheeze-patient treated with a second DuoNeb. With minimal exertion the patient becomes hypoxic. Patient to be admitted to the hospital with hypoxia and pneumonia. Discussed case with hospitalist. Disposition: Admitted The patient's pain was managed to an adequate level weighing risk vs. benefit of further medications. Upon departure from the Emergency Department, the patient's pain was 2 on a zero to ten scale. Condition at departure from the Emergency Department: Stable Discharge Prescriptions New Prescriptions No Discharge Prescriptions for this patient MDM Number of Diagnoses or Management Options Anxiety: Depression: GERD (gastroesophageal reflux disease): Insomnia: Low back pain: Pneumonia: new, needed workup Seasonal allergic rhinitis: Amount and/or Complexity of Data Reviewed Clinical lab tests: ordered and reviewed Tests in the radiology section of CPT??: ordered and reviewed Discussion of test results with the performing providers: yes (Radiologist Dr. Malcolm Michele) Decide to obtain previous medical records or to obtain history from someone other than the patient:yes Discuss the patient with other providers: yes (Family medicine hospitalist Dr. Rosetta Kraft) Independent visualization of images, tracings, or specimens: yes (EKG, chest x- ray, laboratory tests) Risk of Complications, Morbidity, and/or Mortality Presenting problems: high Diagnostic procedures: high Management options: high General comments: 5 Patient Progress Patient progress: stable 1. Pneumonia STATUS: INPATIENT ACUTE ADMISSION, STATUS: INPATIENT ACUTE ADMISSION, STATUS: INPATIENT ACUTE ADMISSION 2. Low back pain baclofen (LIORESAL) tablet 5-10 mg 3. Seasonal allergic rhinitis fexofenadine (JUDITH) 12 hr tablet 180 mg, mometasone (NASONEX) 50 mcg/actuation nasal spray 2 [place] 4. Anxiety lorazepam (ATIVAN) tablet 0.5 mg 5. Depression nortriptyline (PAMELOR) capsule 75 mg, sertraline (ZOLOFT) tablet 200 mg 6. Insomnia omeprazole (PRILOSEC) capsule 20 mg 7. GERD (gastroesophageal reflux disease) PCP: Jean Munoz MD 04/05/2012 17:44 * Gisselle Huang RN - 04/05/2012 1124 EDT 12 Lead EKG Performed by GISSELLE HUANG RN and shown to Jorge Rutledge MD. * Gisselle Huang RN - 04/05/2012 1124 EDT 12 Lead EKG Performed by GISSELLE HUANG RN and shown to Jorge Rutledge MD. * Gisselle Huang RN - 04/05/2012 1124 EDT 12 Lead EKG Performed by GISSELLE HUANG RN and shown to Jorge Rutledge MD. documented in this encounter Miscellaneous Notes * Scanned Note-Null - FLAME HARDENING MACHINE OPERATOR, SCAN 2 - 04/14/2012 1409 EDT * Miscellaneous - FLAME HARDENING MACHINE OPERATOR, SCAN 2 - 04/12/2012 0857 EDT * Miscellaneous - FLAME HARDENING MACHINE OPERATOR, SCAN 2 - 04/12/2012 0857 EDT * Plan of Care - Tereza Dutta RN - 04/11/2012 1507 EDT Problem: RESPIRATORY FUNCTION/OXYGENATION Goal: Patient Will Maintain Patent Airway Outcome: Met This Shift Data: pt alert & oriented x3, independent; pt frequently uses IS and acapella, pt still on 4L O2 and being discharged to home with O2 tank with VNA follow-up; pt advised by respiratory she is okay without O2 at rest; pt was anxious d/t sob and has chronic back pain. Pt is very cooperative. Action: Pt was medicated once today with Ativan po prn for anxiety and tylenol #3 & Vicodin po prn to manage back pain. Explained to pt discharge instructions. Pt recvd explanation & instructions by Respiratory re. Oxygen tank use and care. Response: Pt is feeling much better today and breathing is improved. Pt verbalized understanding and is in agreement re. Discharge and Oxygen tank use. Pt is aware and understands that VNA will visither at home. Tereza Dutta RN 04/11/2012 14:43 * Plan of Care - Gina Funez RN - 04/11/2012 0610 EDT Problem: RESPIRATORY FUNCTION/OXYGENATION Goal: Patient Will Maintain Patent Airway Outcome: Met This Shift Data: Pt with LS coarse with expiratory wheeze at HS. She expresses feeling tight and requests a treatment. Pt does have a scheduled nebulizer treatment at . Pt appears anxious. RN asks pt if sheis feeling anxious. Pt states, I'm always anxious. Pt with PRN order for 0.5mg ativan PO every 6 hr PRN . She states she takes ativan at home. Action: Respiratory found on unit and asked to administer treatment. Pt medicated with ativan as ordered to help with anxiety. Pt also received acapella to assist with expectorating secretions as shehas felt IS is unsuccessful. Response: Pt breathing more comfortably following treatment. She feels more relaxed, and felt that the acapella worked well. Will continue to monitor pt's respiratory status. Gina Funez RN 04/11/2012 6:02 * Plan of Care - Tereza Dutta RN - 04/10/2012 1835 EDT Problem: PAIN Goal: Patient???s Pain And Discomfort Are Adequately Managed Outcome: Met This Shift Data: pt c/o of chronic back pain at 8-05/23 Action: pt's pain managed with tylenol #3 and vicodin, po; pt's pain assessed frequently; encouraged pt to take a shower, spend time with family (outside), ambulate in room. Response: pt felt good after a shower, had a nice time with & friend, talks & gets along well with roommate, ambulates to without a problem, pt has a good appetite & finishes 100% of meals, pt' s breathing is improved. Pt said at home her pain is never better than 5. Tereza Dutta RN 04/10/2012 18:14 * Plan of Care - Tereza Dutta RN - 04/10/2012 1526 EDT Problem: RESPIRATORY FUNCTION/OXYGENATION Goal: Patient Will Maintain Patent Airway Outcome: Ongoing Data: pt sob at rest & at exertion, pt was very anxious this morning, audible wheezes; pt on 3LO2 NC. Action: paged respiratory, pt recvd nebs treatment Response: pt's breathing improved. At noon, talked to pt about weaning O2, but pt declined and wishes to remain on 3 L nc. Pt said I want respiratory to decide. Tereza Dutta RN 04/10/2012 15:21 * Plan of Care - Aline Patino RN - 04/10/2012 0201 EDT Problem: RESPIRATORY FUNCTION/OXYGENATION Goal: Patient Will Maintain Patent Airway Data: Pt alert and oriented x 3 Pt's lung sounds wheezy t/o on evening shift but pt had two coughing episodes and then her lungs were more tight with little movement. Pt appeared to have more sob than last night. Action: nebs by resp, monitor resp status, 3 L O2 nc, vicodin and tylenol #3 for pain Response: Pt's respirations more regular and less tight after nebs and pt was able to rest more comfortably. Will continue to monitor. Aline Patino RN 04/10/2012 1:54 * Plan of Care - Feliberto Castro - 04/09/2012 1150 EDT Problem: RESPIRATORY FUNCTION/OXYGENATION Goal: Patient Will Maintain Patent Airway Outcome: Ongoing Data: Pt disappointed to return to needing oxygen via nasal cannula and not be discharged home today. Action: Provided encouragement, encouraged IS use, obtained wheelchair and oxygen tank for patient to go outside, explained to patient and that when they go off the unit with the oxygen tank,it is imperative that they are not around people who are smoking (including themselves). Response: Pt and her state they understand the importance of staying away from the smoking area when going outside. Pt uses the IS frequently, correctly and independently. She understands shemay just need a little more time for her illness to get better. Feliberto Castro RN 04/09/2012 11:47 * Plan of Care - Aline Patino RN - 04/09/2012 0134 EDT Problem: RESPIRATORY FUNCTION/OXYGENATION Goal: Patient Will Maintain Patent Airway Data: Pt alert and oriented x 3 Pt's lung sounds with wheezing throughout, and pt had been weaned to ra today. Tonight pt was found to have an O2 sat of 88% Action: monitored resp status, resp tx as ordered, O2 2L NC Response: Pt not tolerating RA tonight and after resp tx Pt's O2 sat only @ 93% so pt was put on 2LNC for the night with O2 sats checked Aline Patino RN 04/09/2012 1:25 * Plan of Care - Feliberto Castro - 04/08/2012 1244 EDT Problem: RESPIRATORY FUNCTION/OXYGENATION Goal: Patient Will Maintain Patent Airway Outcome: Ongoing Data: Pt admitted with pneumonia and asthma, on 3 L NC oxygen. Action: Instructed in use of incentive spirometer, weaned oxygen. Response: Pt used IS correctly & independently to 1050. Pt currently on 1 L NC with SaO2 via pulse oximetry 94%. Pt is able to ambulate independently to bathroom with mild dyspnea. Feliberto Castro RN 04/08/2012 12:42 * Plan of Care - Deidre Freitas RN - 04/08/2012 0348 EDT Problem: PAIN Goal: Patient???s Pain And Discomfort Are Adequately Managed Outcome: Ongoing Data: pt with c/o headache Action: medicated with tylenol # 3, 2 tabs po X 1 Response: pt had some relief Deidre Freitas RN 04/08/2012 3:47 * Plan of Care - Nakita Ryan - 04/07/2012 2206 EDT Data: Pt will maintain patent airway Action: pt coughing and receiving treatments from RT Response: Pt on 3 L nc and O2 sat 94% continue to monitor Nakita Ryan RN 04/07/2012 22:06 * Scanned Note-Null - FLAME HARDENING MACHINE OPERATOR, SCAN 2 - 04/07/2012 0954 EDT * Plan of Care - Deidre Freitas RN - 04/07/2012 0337 EDT Problem: PAIN Goal: Patient???s Pain And Discomfort Are Adequately Managed Outcome: Ongoing Data: pt with c/o back pain Action: medicated with vicodin 1 tab po at shift change by previous nurse Response: pt did have some relief Deidre Freitas RN 04/07/2012 3:36 * Plan of Care - Keira Turcios - 04/06/2012 1030 EDT Problem: DROPLET PRECAUTIONS Goal: Prevent Transmission Of Infection Viral detection assay for Influenza/RSV - Negative. Droplet precautions discontinued. * Plan of Care - Deidre Freitas RN - 04/06/2012 0056 EDT Problem: PAIN Goal: Patient???s Pain And Discomfort Are Adequately Managed Outcome: Ongoing Data: pt with c/o back pain Action: medicated with vicodin 1 tab po X 1 Response: pt sleeping on reassessment Deidre Freitas RN 04/06/2012 0:55 * Scanned Note-Null - FLAME HARDENING MACHINE OPERATOR, SCAN 2 - 04/05/2012 1917 EDT * Scanned Note-Null - FLAME HARDENING MACHINE OPERATOR, SCAN 2 - 04/05/2012 1917 EDT * Scanned Note-Null - FLAME HARDENING MACHINE OPERATOR, SCAN 2 - 04/05/2012 1603 EDT documented in this encounter Plan of Treatment Upcoming Encounters Date Type Department Care Team (Late st Contact Info) Description 06/29/2024 14:15 EDT Office Visit [facility] [address] [place] [address] Jean Munoz MD [address] [place] [address] Scheduled Referrals Name Type Priority Associated Diagnoses Orde r Schedule FROM IP - CONSULT HOME HEALTH SERVICES Outpatient Referral Routine Pneumonia Asthma Ordered: 04/11/2012 documented as of this encounter Procedures Procedure Name Priority Date/Time Associated Diagnosis Comments EVAL FOR HOME OXYGEN USE Routine 04/11/2012 11:51 EDT ECG REPORT - SCANNED 04/11/2012 9:34 EDT COMPLETE BLOOD COUNT AND DIFFERENTIAL Routine 04/11/2012 6:46 EDT BUN Routine 04/11/2012 6:46 EDT CREATININE Routine 04/11/2012 6:46 EDT ELECTROLYTES Routine 04/11/2012 6:46 EDT NEBULIZER TX INTERMITTENT Routine 04/11/2012 0:08 EDT NEBULIZER TX INTERMITTENT Routine 04/11/2012 0:08 EDT NEBULIZER TX INTERMITTENT Routine 04/10/2012 14:27 EDT NEBULIZER TX INTERMITTENT Routine 04/10/2012 14:27 EDT COMPLETE BLOOD COUNT AND DIFFERENTIAL Routine 04/10/2012 6:24 EDT BUN Routine 04/10/2012 6:24 EDT CREATININE Routine 04/10/2012 6:24 EDT ELECTROLYTES Routine 04/10/2012 6:24 EDT DRY POWDERED OR METERED DOSE INHALER Routine 04/10/2012 0:09 EDT DRY POWDERED OR METERED DOSE INHALER Routine 04/10/2012 0:09 EDT NEBULIZER TX INTERMITTENT Routine 04/10/2012 0:09 EDT NEBULIZER TX INTERMITTENT Routine 04/10/2012 0:09 EDT COMPLETE BLOOD COUNT AND DIFFERENTIAL Routine 04/09/2012 6:49 EDT BUN Routine 04/09/2012 6:49 EDT CREATININE Routine 04/09/2012 6:49 EDT ELECTROLYTES Routine 04/09/2012 6:49 EDT DRY POWDERED OR METERED DOSE INHALER Routine 04/09/2012 0:08 EDT DRY POWDERED OR METERED DOSE INHALER Routine 04/09/2012 0:08 EDT NEBULIZER TX INTERMITTENT Routine 04/09/2012 0:08 EDT NEBULIZER TX INTERMITTENT Routine 04/09/2012 0:08 EDT NEBULIZER TX INTERMITTENT Routine 04/09/2012 0:08 EDT NEBULIZER TX INTERMITTENT Routine 04/09/2012 0:08 EDT POTASSIUM Routine 04/08/2012 15:38 EDT BACTERIAL CULTURE/SMEAR, RESPIRATORY Routine 04/08/2012 13:04 EDT COMPLETE BLOOD COUNT AND DIFFERENTIAL Routine 04/08/2012 6:16 EDT BUN Routine 04/08/2012 6:16 EDT CREATININE Routine 04/08/2012 6:16 EDT ELECTROLYTES Routine 04/08/2012 6:16 EDT DRY POWDERED OR METERED DOSE INHALER Routine 04/08/2012 0:09 EDT DRY POWDERED OR METERED DOSE INHALER Routine 04/08/2012 0:09 EDT NEBULIZER TX INTERMITTENT Routine 04/08/2012 0:09 EDT NEBULIZER TX INTERMITTENT Routine 04/08/2012 0:09 EDT NEBULIZER TX INTERMITTENT Routine 04/08/2012 0:09 EDT NEBULIZER TX INTERMITTENT Routine 04/08/2012 0:09 EDT DRY POWDERED OR METERED DOSE INHALER Routine 04/07/2012 11:55 EDT NEBULIZER TX INTERMITTENT Routine 04/07/2012 10:48 EDT NEBULIZER TX INTERMITTENT Routine 04/07/2012 10:48 EDT NEBULIZER TX INTERMITTENT Routine 04/07/2012 10:48 EDT INPATIENT ADD-ON Routine 04/07/2012 8:05 EDT COMPLETE BLOOD COUNT AND DIFFERENTIAL Routine 04/07/2012 6:51 EDT BUN Routine 04/07/2012 6:51 EDT HEMOGLOBIN A1C Routine 04/07/2012 6:51 EDT CREATININE Routine 04/07/2012 6:51 EDT ELECTROLYTES Routine 04/07/2012 6:51 EDT SCREENING GLUCOSE Routine 04/06/2012 7:4 8 EDT COMPLETE BLOOD COUNT AND DIFFERENTIAL Routine 04/06/2012 7:48 EDT BUN Routine 04/06/2012 7:48 EDT CREATININE Routine 04/06/2012 7:48 EDT ELECTROLYTES Routine 04/06/2012 7:48 EDT LEGIONELLA ANTIGEN DETECTION, URINE Routine 04/05/2012 22:34 EDT VIROLOGY DETECTION Routine 04/05/2012 22 :23 EDT NEBULIZER TX INTERMITTENT Routine 04/05/2012 21:54 EDT BACTERIAL CULTURE, BLOOD Routine 04/05/2012 13:57 EDT BACTERIAL CULTURE, BLOOD Routine 04/05/2012 13:57 EDT CHEST PA AND LATERAL STAT 04/05/2012 13:03 EDT REDRAW LABS Routine 04/05/2012 12:19 EDT PROFILE ED CARDIAC PACK STAT 04/05/2012 12:19 EDT EKG 12-LEAD STAT 04/05/2012 11:24 EDT documented in this encounter Results * HOME O2 EVAL (04/11/2012 11:51 EDT) Narrative [facility] PFT - 04/11/2012 11:51 EDT Radha Ledesma RT ? 04/11/2012 11:49 HOME 02 EVALUATION 6 Minute Walk Test / Interpretation Name: ??Liset Meadows Date of : ??1960 DIAGNOSIS: ALEJANDRE RESTING O2 TITRATION FLOW 2.5 RA ? SPO2 98 % ??92% ??% ??% ??% ??% Walking without assistive device. TIME HR SPO2 LPM COMMENTS Standing 95 92 RA ?? 30 second 102 89 RA Walking 1 minute 100 81 RA Resting, Increased to 1L 1 min/30 sec 99 82 1L Resting, Increased to 2L 2 minutes 86 87 2L Resting, Increased to 3L 2 min/30 sec 92 91 3L Resting 3 minutes 84 94 3L Resting 3 min/30 sec 87 95 3L Walking 4 minutes 89 95 3L Walking 4 min/30 sec 94 90 3L Walking 5 minutes 96 89 3L Resting, Increased to 4L 5 minutes/30 sec 92 91 4L Walking 6 minutes 97 92 4L Walking Distance walked ??150 feet. RECOMMENDATIONS Flow rate: RA ??resting, 4L ??exercise. Re-evaluate in 1 ?? month(s). ?? PCP: Jean Munoz MD Therapist Signature: RT ANIRUDH ? Expires: 04-13-12 Procedure Note Radha Ledesma RT - 04/11/2012 11:44 EDT HOME 02 EVALUATION 6 Minute Walk Test / Interpretation Name: Liset Meadows Date of : 1960 DIAGNOSIS: ALEJANDRE RESTING O2 TITRATION FLOW 2.5 RA SPO2 98 % 92% % % % % Walking without assistive device. TIME HR SPO2 LPM COMMENTS Standing 95 92 RA 30 second 102 89 RA Walking 1 minute 100 81 RA Resting, Increased to 1L 1 min/30 sec 99 82 1L Resting, Increased to 2L 2 minutes 86 87 2L Resting, Increased to 3L 2 min/30 sec 92 91 3L Resting 3 minutes 84 94 3L Resting 3 min/30 sec 87 95 3L Walking 4 minutes 89 95 3L Walking 4 min/30 sec 94 90 3L Walking 5 minutes 96 89 3L Resting, Increased to 4L 5 minutes/30 sec 92 91 4L Walking 6 minutes 97 92 4L Walking Distance walked 150 feet. RECOMMENDATIONS Flow rate: RA resting, 4L exercise. Re-evaluate in 1 month(s). PCP: Jean Munoz MD Therapist Signature: RT ANIRUDH Expires: 04-13-12 Graciela Lin MD PFT ORDERABLES [facility] PFT * ECG REPORT - SCANNED (04/11/2012 9:34 EDT) 04/11/2012 9:34 EDT Narrative Transcriptions FLAME HARDENING MACHINE OPERATOR, SCAN 2 - 04/11/2012 9:34 EDT Scan 2 Vocational Instructor PROCEDURE/MINOR GURU GICAL ORDERABLES * (ABNORMAL) HEMAGRAM AND DIFFERENTIAL (04/11/2012 6:46 EDT) WBC 10.82 4.0 - 12.4 K/cmm [facility] RBC 3.67(L) 3.86 - 5.04 M/cmm [facility] Hemoglobin 11.8 11.6 - 15.2 gm/dl [facility] HCT 34.0(L) 34.9 - 44.4 % [facility] MCV 93 81 - 98 fl [facility] MCH 32.1 26.7 - 33.3 pg [facility] MCHC 34.7 32.1 - 35.9 gm/dl [facility] PLT 351(H) 141 - 320 K/cmm [facility] RDW-CV 15.7(H) 11.7 - 14.6 % [facility] % Neutrophils 88.6(H) 45.5 - 79.7 % [facility] % Lymphocytes 8.6(L) 15.0 - 46.8 % [facility] % Monocytes 2.8 1.8 - 12.0 % [facility] % Eosinophils 0.0(L) 0.6 - 6.9 % [facility] % Basophils 0.0(L) 0.2 - 1.4 % [facility] ABS Neutrophils 9.59(H) 2.20 - 8.85 K/cmm [facility] ABS Lymphs 0.93(L) 1.09 - 3.30 K/cmm [facility] ABS Monocytes 0.30 0.1 - 0.8 K/cmm [facility] ABS Eosinophils 0.00(L) 0.03 - 0.61 K/cmm [facility] ABS Basophils 0.00(L) 0.01 - 0.11 K/cmm [facility] Type of Diff: Automated [facility] Blood specimen (specimen) 04/11/2012 6:46 EDT 04/11/2012 7:56 EDT rGaciela Lin MD PACKAGES & DNA PROBE ORDERABLES [facility] [address] [place] [address] * CREATININE (04/11/2012 6:46 EDT) Creatinine 0.52 0.52 - 1.04 mg/dl [facility] GFR, Calculated >60 >60 ml/min/1.7 3m2 [facility] Blood specimen (specimen) 04/11/2012 6:46 EDT 04/11/2012 7:56 EDT Graciela Lin MD CHEMISTRY & BLOOD GA S ORDERABLES Performing Organization Address [facility] de Phone Number [facility] [address] [place] [address] * BUN (04/11/2012 6:46 EDT) BUN 13 10 - 26 mg/dl [facility] Blood specimen (specimen) 04/11/2012 6:46 EDT 04/11/2012 7:56 EDT Graciela Lin MD CHEMISTRY & BLOOD GA S ORDERABLES Performing Organization Address [facility] de Phone Number [facility] [address] [place] [address] * ELECTROLYTES (04/11/2012 6:46 EDT) Sodium 141 136 - 145 mEq/L [facility] Potassium 4.6 3.5 - 5.0 mEq/L [facility] Chloride 100 96 - 110 mEq/L [facility] CO2 29 24 - 32 mEq/L [facility] Blood specimen (specimen) 04/11/2012 6:46 EDT 04/11/2012 7:56 EDT Graciela Lin MD CHEMISTRY & BLOOD GA S ORDERABLES Performing Organization Address [facility] de Phone Number [facility] [address] [place] [address] * (ABNORMAL) HEMAGRAM AND DIFFERENTIAL (04/10/2012 6:24 EDT) WBC 12.05 4.0 - 12.4 K/cmm [facility] RBC 3.76(L) 3.86 - 5.04 M/cmm [facility] Hemoglobin 11.9 11.6 - 15.2 gm/dl [facility] HCT 34.7(L) 34.9 - 44.4 % [facility] MCV 92 81 - 98 fl [facility] MCH 31.6 26.7 - 33.3 pg [facility] MCHC 34.2 32.1 - 35.9 gm/dl [facility] PLT 320 141 - 320 K/cmm [facility] RDW-CV 15.7(H) 11.7 - 14.6 % [facility] % Neutrophils 89.5(H) 45.5 - 79.7 % [facility] % Lymphocytes 7.7(L) 15.0 - 46.8 % [facility] % Monocytes 2.8 1.8 - 12.0 % [facility] % Eosinophils 0.0(L) 0.6 - 6.9 % [facility] % Basophils 0.0(L) 0.2 - 1.4 % [facility] ABS Neutrophils 10.78(H) 2.20 - 8.85 K/cmm [facility] ABS Lymphs 0.92(L) 1.09 - 3.30 K/cmm [facility] ABS Monocytes 0.34 0.1 - 0.8 K/cmm [facility] ABS Eosinophils 0.00(L) 0.03 - 0.61 K/cmm [facility] ABS Basophils 0.00(L) 0.01 - 0.11 K/cmm [facility] Type of Diff: Automated [facility] Blood specimen (specimen) 04/10/2012 6:24 EDT 04/10/2012 7:38 EDT Graciela Lin MD PACKAGES & DNA PROBE ORDERABLES Performing Organization Address City/[facility] Co de Phone Number [facility] [address] [place] [address] * CREATININE (04/10/2012 6:24 EDT) Creatinine 0.60 0.52 - 1.04 mg/dl [facility] GFR, Calculated >60 >60 ml/min/1.7 3m2 [facility] Blood specimen (specimen) 04/10/2012 6:24 EDT 04/10/2012 7:38 EDT Graciela Lin MD CHEMISTRY & BLOOD GA S ORDERABLES [facility] [address] [place] [address] * BUN (04/10/2012 6:24 EDT) BUN 11 10 - 26 mg/dl [facility] Blood specimen (specimen) 04/10/2012 6:24 EDT 04/10/2012 7:38 EDT Graciela Lin MD CHEMISTRY & BLOOD GA S ORDERABLES Performing Organization Address [facility] [place] de Phone Number [facility] [address] [place] [address] * ELECTROLYTES (04/10/2012 6:24 EDT) Sodium 140 136 - 145 mEq/L [facility] Potassium 4.2 3.5 - 5.0 mEq/L [facility] Chloride 101 96 - 110 mEq/L [facility] CO2 30 24 - 32 mEq/L [facility] Blood specimen (specimen) 04/10/2012 6:24 EDT 04/10/2012 7:38 EDT Graciela Lin MD CHEMISTRY & BLOOD GA S ORDERABLES Performing Organization Address [facility] [place] de Phone Number [facility] [address] [place] [address] * (ABNORMAL) HEMAGRAM AND DIFFERENTIAL (04/09/2012 6:49 EDT) WBC 12.09 4.0 - 12.4 K/cmm [facility] RBC 3.66(L) 3.86 - 5.04 M/cmm [facility] Hemoglobin 11.7 11.6 - 15.2 gm/dl [facility] HCT 34.0(L) 34.9 - 44.4 % [facility] MCV 93 81 - 98 fl [facility] MCH 32.1 26.7 - 33.3 pg [facility] MCHC 34.6 32.1 - 35.9 gm/dl [facility] PLT 297 141 - 320 K/cmm [facility] RDW-CV 15.5(H) 11.7 - 14.6 % [facility] Neutrophils 89.0(H) 45.5 - 79.7 % [facility] Lymphocytes 7.0(L) 15.0 - 46.8 % [facility] Monocytes 4.0 1.8 - 12.0 % [facility] ABS Neutrophils 10.76(H) 2.20 - 8.85 K/cmm [facility] ABS Lymphs 0.85(L) 1.09 - 3.30 K/cmm [facility] ABS Monocytes 0.48 0.1 - 0.8 K/cmm [facility] RBC Morphology Normal [facility] WBC Morphology 1+ [facility] Comment: Toxic granulation 1+ Vacuolization Type of Diff: Manual [facility] Blood specimen (specimen) 04/09/2012 6:49 EDT 04/09/2012 7:37 EDT Graciela Lin MD PACKAGES & DNA PROBE ORDERABLES Performing Organization Address [facility] Co de Phone Number [facility] [address] [place] [address] * (ABNORMAL) CREATININE (04/09/2012 6:49 EDT) Creatinine 0.51(L) 0.52 - 1.04 mg/dl [facility] GFR, Calculated >60 >60 ml/min/1.7 3m2 [facility] Blood specimen (specimen) 04/09/2012 6:49 EDT 04/09/2012 7:37 EDT Graciela Lin MD CHEMISTRY & BLOOD GA S ORDERABLES Performing Organization Address [facility] Co de Phone Number [facility] [address] [place] [address] * BUN (04/09/2012 6:49 EDT) BUN 10 10 - 26 mg/dl [facility] Blood specimen (specimen) 04/09/2012 6:49 EDT 04/09/2012 7:37 EDT Graciela Lin MD CHEMISTRY & BLOOD GA S ORDERABLES Performing Organization Address [facility] Co de Phone Number [facility] [address] [place] [address] * ELECTROLYTES (04/09/2012 6:49 EDT) Sodium 140 136 - 145 mEq/L [facility] Potassium 3.7 3.5 - 5.0 mEq/L [facility] Chloride 102 96 - 110 mEq/L [facility] CO2 26 24 - 32 mEq/L [facility] Blood specimen (specimen) 04/09/2012 6:49 EDT 04/09/2012 7:37 EDT Graciela Lin MD CHEMISTRY & BLOOD GA S ORDERABLES Performing Organization Address [facility] Co de Phone Number [facility] [address] [place] [address] * POTASSIUM (04/08/2012 15:38 EDT) Potassium 3.7 3.5 - 5.0 mEq/L [facility] Blood specimen (specimen) 04/08/2012 15:38 EDT 04/08/2012 16:02 EDT Graciela Lin MD CHEMISTRY & BLOOD GA S ORDERABLES Performing Organization Address [facility] de Phone Number [facility] [address] [place] [address] * BACTERIAL CULTURE/SMEAR, RESPIRATORY (04/08/2012 13:04 EDT) Specimen Description Sputum [facility] Gram Smear Result No polys seen [facility] Gram Smear Result No alveolar macrophages seen [facility] Gram Smear Result Mod Gram positive cocci [facility] Gram Smear Result Mucus present [facility] Gram Smear Result Smear suggests minimal or no inflammation. [facility] Result Smear suggests minimal or no inflammation. [facility] Report Status 04/09/2012 Final [facility] Sputum specimen (specimen) 04/08/2012 13:04 EDT 04/08/2012 15:23 EDT Graciela Lin MD MICROBIOLOGY - GENER AL ORDERABLES Performing Organization Address City/[facility]/ZIP Co de Phone Number [facility] [address] [place] [address] * (ABNORMAL) HEMAGRAM AND DIFFERENTIAL (04/08/2012 6:16 EDT) WBC 9.97 4.0 - 12.4 K/cmm [facility] RBC 3.73(L) 3.86 - 5.04 M/cmm [facility] Hemoglobin 11.9 11.6 - 15.2 gm/dl [facility] HCT 34.9 34.9 - 44.4 % [facility] MCV 94 81 - 98 fl [facility] MCH 32.0 26.7 - 33.3 pg [facility] MCHC 34.2 32.1 - 35.9 gm/dl [facility] PLT 263 141 - 320 K/cmm [facility] RDW-CV 15.7(H) 11.7 - 14.6 % [facility] Neutrophils 76.0 45.5 - 79.7 % [facility] Lymphocytes 19.0 15.0 - 46.8 % [facility] Monocytes 5.0 1.8 - 12.0 % [facility] ABS Neutrophils 7.58 2.20 - 8.85 K/cmm [facility] ABS Lymphs 1.89 1.09 - 3.30 K/cmm [facility] ABS Monocytes 0.50 0.1 - 0.8 K/cmm [facility] RBC Morphology Normal [facility] WBC Morphology 1+ [facility] Comment:Vacuolization Type of Diff: Manual [facility] Blood specimen (specimen) 04/08/2012 6:16 EDT 04/08/2012 7:15 EDT Graciela Lin MD PACKAGES & DNA PROBE ORDERABLES Performing Organization Address City/[facility]/ZIP Co de Phone Number [facility] [address] [place] [address] * CREATININE (04/08/2012 6:16 EDT) Creatinine 0.52 0.52 - 1.04 mg/dl [facility] GFR, Calculated >60 >60 ml/min/1.7 3m2 [facility] Blood specimen (specimen) 04/08/2012 6:16 EDT 04/08/2012 7:15 EDT Graciela Lin MD CHEMISTRY & BLOOD GA S ORDERABLES Performing Organization Address [facility] Co de Phone Number [facility] [address] [place] [address] * (ABNORMAL) BUN (04/08/2012 6:16 EDT) Pathologist [facility] BUN 9(L) 10 - 26 mg/dl [facility] Blood specimen (specimen) 04/08/2012 6:16 EDT 04/08/2012 7:15 EDT Graciela Lin MD CHEMISTRY & BLOOD GA S ORDERABLES Performing Organization Address [facility] Phone Number [facility] [address] [place] [address] * (ABNORMAL) ELECTROLYTES (04/08/2012 6:16 EDT) Pathologist [facility] Sodium 142 136 - 145 mEq/L [facility] Potassium 3.3(L) 3.5 - 5.0 mEq/L [facility] Chloride 103 96 - 110 mEq/L [facility] CO2 28 24 - 32 mEq/L [facility] Blood specimen (specimen) 04/08/2012 6:16 EDT 04/08/2012 7:15 EDT Graciela Lin MD CHEMISTRY & BLOOD GA S ORDERABLES Performing Organization Address [facility] de Phone Number [facility] [address] [place] [address] * INPATIENT ADD-ON (04/07/2012 8:05 EDT) Pathologist [facility] Tests to be added HEMOGLOBIN A1C [facility] Number for problems B4 [facility] Accession number [id number] [facility] 04/07/2012 8:05 EDT 04/07/2012 8:27 EDT Graciela Lin MD HEMATOLOGY & PF4 ORD ERABLES Performing Organization Address [facility] [place] de Phone Number [facility] [address] [place] [address] * HEMOGLOBIN A1C (04/07/2012 6:51 EDT) Pathologist [facility] Hemoglobin A1C 6.0 % [facility] Comment: Reference Range: <5.7% Normal 5.7-6.4% Increased risk for diabetes =>6.5% Diagnostic for diabetes (if confirmed) The A1c goal for non adults in general is <7%. The A1c goal for selected patients may be significantly lower than 7% if this can be achieved without significant hypoglycemia or other adverse effects of treatment. Est Avg Glucose 126 mg/dl [facility] Comment: eAG represents the A1c result expressed as average glucose in mg/dl. 04/07/2012 6:51 EDT 04/07/2012 7:37 EDT Graciela Lin MD CHEMISTRY & BLOOD GA S ORDERABLES Performing Organization Address [facility] de Phone Number [facility] [address] [place] [address] * (ABNORMAL) HEMAGRAM AND DIFFERENTIAL (04/07/2012 6:51 EDT) Pathologist [facility] [place] WBC 9.81 4.0 - 12.4 K/cmm [facility] RBC 3.65(L) 3.86 - 5.04 M/cmm [facility] Hemoglobin 11.8 11.6 - 15.2 gm/dl [facility] HCT 33.8(L) 34.9 - 44.4 % [facility] MCV 93 81 - 98 fl [facility] MCH 32.2 26.7 - 33.3 pg [facility] MCHC 34.8 32.1 - 35.9 gm/dl [facility] PLT 248 141 - 320 K/cmm [facility] RDW-CV 15.5(H) 11.7 - 14.6 % [facility] Neutrophils 77.0 45.5 - 79.7 % [facility] Lymphocytes 21.0 15.0 - 46.8 % [facility] Monocytes 2.0 1.8 - 12.0 % [facility] ABS Neutrophils 7.55 2.20 - 8.85 K/cmm [facility] ABS Lymphs 2.06 1.09 - 3.30 K/cmm [facility] ABS Monocytes 0.20 0.1 - 0.8 K/cmm [facility] RBC Morphology Normal [facility] WBC Morphology 1+ [facility] Comment:Vacuolization Type of Diff: Manual [facility] [facility] Blood specimen (specimen) 04/07/2012 6:51 EDT 04/07/2012 7:37 EDT Graciela Lin MD PACKAGES & DNA PROBE ORDERABLES Performing Organization Address City/[facility] Co de Phone Number [facility] [address] [place] [address] * (ABNORMAL) CREATININE (04/07/2012 6:51 EDT) Creatinine 0.51(L) 0.52 - 1.04 mg/dl [facility] GFR, Calculated >60 >60 ml/min/1.7 3m2 [facility] Blood specimen (specimen) 04/07/2012 6:51 EDT 04/07/2012 7:37 EDT Graciela Lin MD CHEMISTRY & BLOOD GA S ORDERABLES Performing Organization Address [facility] Co de Phone Number [facility] [address] [place] [address] * BUN (04/07/2012 6:51 EDT) BUN 10 10 - 26 mg/dl [facility] Blood specimen (specimen) 04/07/2012 6:51 EDT 04/07/2012 7:37 EDT Graciela Lin MD CHEMISTRY & BLOOD NC S ORDERABLES Performing Organization Address [facility] Co de Phone Number [facility] [address] [place] [address] * (ABNORMAL) ELECTROLYTES (04/07/2012 6:51 EDT) Pathologist [facility] Sodium 141 136 - 145 mEq/L [facility] Potassium 3.3(L) 3.5 - 5.0 mEq/L [facility] Chloride 105 96 - 110 mEq/L [facility] CO2 26 24 - 32 mEq/L [facility] Blood specimen (specimen) 04/07/2012 6:51 EDT 04/07/2012 7:37 EDT Graciela Lin MD CHEMISTRY & BLOOD NC S ORDERABLES Performing Organization Address [facility] de Phone Number [facility] [address] [place] [address] * (ABNORMAL) HEMAGRAM AND DIFFERENTIAL (04/06/2012 7:48 EDT) WBC 8.16 4.0 - 12.4 K/cmm [facility] RBC 3.71(L) 3.86 - 5.04 M/cmm [facility] Hemoglobin 11.9 11.6 - 15.2 gm/dl [facility] HCT 35.0 34.9 - 44.4 % [facility] MCV 94 81 - 98 fl [facility] MCH 32.0 26.7 - 33.3 pg [facility] MCHC 34.0 32.1 - 35.9 gm/dl [facility] PLT 232 141 - 320 K/cmm [facility] RDW-CV 15.9(H) 11.7 - 14.6 % [facility] % Neutrophils 77.3 45.5 - 79.7 % [facility] % Lymphocytes 14.5(L) 15.0 - 46.8 % [facility] % Monocytes 6.8 1.8 - 12.0 % [facility] % Eosinophils 1.1 0.6 - 6.9 % [facility] % Basophils 0.3 0.2 - 1.4 % [facility] ABS Neutrophils 6.32 2.20 - 8.85 K/cmm [facility] ABS Lymphs 1.18 1.09 - 3.30 K/cmm [facility] ABS Monocytes 0.55 0.1 - 0.8 K/cmm [facility] ABS Eosinophils 0.09 0.03 - 0.61 K/cmm [facility] ABS Basophils 0.02 0.01 - 0.11 K/cmm [facility] Type of Diff: Automated [facility] Blood specimen (specimen) 04/06/2012 7:48 EDT 04/06/2012 8:09 EDT Comment:#DRAW IN AM PER TEA FREITAS RN Graciela Lin MD PACKAGES & DNA PROBE ORDERABLES Performing Organization Address [facility] de Phone Number [facility] [address] [place] [address] * CREATININE (04/06/2012 7:48 EDT) Creatinine 0.57 0.52 - 1.04 mg/dl [facility] GFR, Calculated >60 >60 ml/min/1.7 3m2 [facility] Blood specimen (specimen) 04/06/2012 7:48 EDT 04/06/2012 8:09 EDT Comment:#DRAW IN AM PER TEA FREITAS RN Graciela Lin MD CHEMISTRY & BLOOD GA S ORDERABLES Performing Organization Address [facility] de Phone Number [facility] [address] [place] [address] * (ABNORMAL) BUN (04/06/2012 7:48 EDT) BUN 8(L) 10 - 26 mg/dl [facility] Blood specimen (specimen) 04/06/2012 7:48 EDT 04/06/2012 8:09 EDT Comment:#DRAW IN AM PER TEA FREITAS RN Graciela Lin MD CHEMISTRY & BLOOD GA S ORDERABLES Performing Organization Address [facility] Co de Phone Number [facility] [address] [place] [address] * ELECTROLYTES (04/06/2012 7:48 EDT) Sodium 142 136 - 145 mEq/L [facility] Potassium 3.7 3.5 - 5.0 mEq/L [facility] Chloride 106 96 - 110 mEq/L [facility] CO2 27 24 - 32 mEq/L [facility] Blood specimen (specimen) 04/06/2012 7:48 EDT 04/06/2012 8:09 EDT Comment:#DRAW IN AM PER TEA FREITAS RN Graciela Lin MD CHEMISTRY & BLOOD GA S ORDERABLES Performing Organization Address [facility] Co de Phone Number [facility] [address] [place] [address] * (ABNORMAL) SCREENING GLUCOSE (04/06/2012 7:48 EDT) Glucose, Screening 115(H) 70 - 100 mg/dl [facility] Blood specimen (specimen) 04/06/2012 7:48 EDT 04/06/2012 8:09 EDT Comment:#DRAW IN AM PER TEA FREITAS RN Graciela Lin MD CHEMISTRY & BLOOD GA S ORDERABLES Performing Organization Address [facility] de Phone Number [facility] [address] [place] [address] * LEGIONELLA ANTIGEN DETECTION, URINE (04/05/2012 22:34 EDT) Specimen Description Urine [facility] Result No Legionella pneumophila serogroup 1 antigen detected. [facility] Report Status 04/05/2012 Final [facility] Urine specimen (specimen) 04/05/2012 22:34 EDT 04/05/2012 22:55 EDT Graciela Lin MD MICROBIOLOGY - GENER AL ORDERABLES Performing Organization Address [facility] Co de Phone Number [facility] [address] [place] [address] * VIROLOGY DETECTION (04/05/2012 22:23 EDT) Specimen Description Nasal [facility] Result No RSV, Influenza A, or Influenza B detected by PCR. [facility] Report Status 04/07/2012 Final [facility] Specimen from nose (specimen) 04/05/2012 22:23 EDT 04/05/2012 22:56 EDT Graciela Lin MD MICROBIOLOGY - GENER AL ORDERABLES Performing Organization Address [facility] Co de Phone Number [facility] [address] [place] [address] * BACTERIAL CULTURE, BLOOD (04/05/2012 13:57 EDT) Specimen Description Blood Left Antecubital Total volume of blood collected: 20 ml [facility] Result No growth [facility] Report Status 04/11/2012 Final [facility] Blood specimen (specimen) 04/05/2012 13:57 EDT 04/05/2012 15:43 EDT Jorge Rutledge MD MICROBIOLOGY - GENER AL ORDERABLES Performing Organization Address [facility] Co de Phone Number [facility] [address] [place] [address] * BACTERIAL CULTURE, BLOOD (04/05/2012 13:57 EDT) Specimen Description Blood Right Antecubital Total volume of blood collected: 20 ml [facility] Result No growth [facility] Report Status 04/11/2012 Final [facility] Blood specimen (specimen) 04/05/2012 13:57 EDT 04/05/2012 15:43 EDT Jorge Rutledge MD MICROBIOLOGY - GENER AL ORDERABLES Performing Organization Address [facility] Co de Phone Number [facility] [address] [place] [address] * CHEST PA AND LATERAL (04/05/2012 13:03 EDT) Anatomical Region Laterality Modality Other 04/05/2012 13:0 3 EDT 04/05/2012 13:23 EDT Narrative 04/05/2012 13:23 EDT CHEST PA AND LAT ??Apr 05, 2012 01:03:00 PM Signs and Symptoms/Comments: ?? SHORTNESS OF BREATH ??febrile Comparison: 01/04/2009 Findings: Patchy bilateral interstitial and airspace opacities most consistent with pneumonia. The lungs look otherwise clear and there is no pleural fluid. The cardiac silhouette is normal and there is no convincing evidence of pulmonary edema. The skeleton is grossly unremarkable for age aside from lower cervical anterior fixation. Impression: Findings consistent with pneumonia, most likely viral given the diffuse in nature and interstitial component Case was reviewed with JORGE RUTLEDGE MD at the time of dictation Procedure Note 04/05/2012 CHEST PA AND LAT Apr 05, 2012 01:03:00 PM Signs and Symptoms/Comments: SHORTNESS OF BREATH febrile Comparison: 01/04/2009 Findings: Patchy bilateral interstitial and airspace opacities most consistent with pneumonia. The lungs look otherwise clear and there is no pleural fluid. The cardiac silhouette is normal and there is no convincing evidence of pulmonary edema. The skeleton is grossly unremarkable for age aside from lower cervical anterior fixation. Impression: Findings consistent with pneumonia, most likely viral given the diffuse in nature and interstitial component Case was reviewed with JORGE RUTLEDGE MD at the time of dictation Jorge Rutledge MD IMG DIAGNOSTIC IMAGI NG ORDERABLES * REDRAW LABS (04/05/2012 12:19 EDT) Redraw [facility] 04/05/2012 12:1 9 EDT 04/05/2012 12:27 EDT Jorge Rutledge MD LAB INFO SERVICE AND SUPPORT & PHONE RESULT [facility] [address] [place] [address] * (ABNORMAL) PROFILE ED CARDIAC PACK (04/05/2012 12:19 EDT) Hold Blue Top Clotted [facility] Comment: Specimen unsuitable for analysis. Credit Issued WBC 10.29 4.0 - 12.4 K/cmm [facility] RBC 4.01 3.86 - 5.04 M/cmm [facility] Hemoglobin 12.9 11.6 - 15.2 gm/dl [facility] HCT 36.9 34.9 - 44.4 % [facility] MCV 92 81 - [address] [facility] MCH 32.2 26.7 - 33.[address] [facility] MCHC 34.9 32.1 - 35.9 gm/dl [facility] PLT 268 141 - 320 K/cmm [facility] RDW-CV 15.7(H) 11.7 - 14.6 % [facility] Sodium 139 136 - 145 mEq/L [facility] Comment:Slight hemolysis Potassium 3.9 3.5 - 5.0 mEq/L [facility] Comment: Hemolysis may elevate potassium result. Slight hemolysis Chloride 105 96 - 110 mEq/L [facility] Comment:Slight hemolysis CO2 27 24 - 32 mEq/L [facility] Comment:Slight hemolysis BUN 9(L) 10 - 26 mg/dl [facility] Comment: Results may be affected due to hemolysis. Slight hemolysis Creatinine 0.50(L) 0.52 - 1.04 mg/dl [facility] Comment:Slight hemolysis GFR, Calculated >60 >60 ml/min/1.7 3m2 [facility] Comment:Slight hemolysis Glucose, Screening 124(H) 70 - 100 mg/dl [facility] Comment: Results may be affected due to hemolysis. Slight hemolysis Magnesium 2.0 1.7 - 2.8 mg/dl [facility] Comment: Results may be affected due to hemolysis. Slight hemolysis CK <25(L) 30 - 135 U/L [facility] Comment: Results may be affected due to hemolysis. Slight hemolysis MB <0.22 <2.95 ng/ml [facility] Comment: Results may be affected due to hemolysis. Slight hemolysis Troponin I (ng/mL) <0.034 <0.034 ng/ml [facility] Comment: Results may be affected due to hemolysis. Slight hemolysis Neutrophils 86.0(H) 45.5 - 79.7 % [facility] Lymphocytes 10.0(L) 15.0 - 46.8 % [facility] Monocytes 2.0 1.8 - 12.0 % [facility] Eosinophils 1.0 0.6 - 6.9 % [facility] Basophils 1.0 0.2 - 1.4 % [facility] ABS Neutrophils 8.85 2.20 - 8.85 K/cmm [facility] ABS Lymphs 1.03(L) 1.09 - 3.30 K/cmm [facility] ABS Monocytes 0.21 0.1 - 0.8 K/cmm [facility] ABS Eosinophils 0.10 0.03 - 0.61 K/cmm [facility] ABS Basophils 0.10 0.01 - 0.11 K/cmm [facility] RBC Morphology Normal [facility] WBC Morphology 1+ [facility] Comment:Vacuolization Type of Diff: Manual [facility] Blood specimen (specimen) 04/05/2012 12:19 EDT 04/05/2012 12:27 EDT Jorge Rutledge MD PACKAGES & DNA PROBE ORDERABLES Performing Organization Address City/State/[facility] Co de Phone Number [facility] [address] [place] [address] documented in this encounter Visit Diagnoses Diagnosis Pneumonia Pneumonia, organism unspecified Low back pain Lumbago Seasonal allergic rhinitis Allergic rhinitis, cause unspecified Anxiety Anxiety state, unspecified Depression Depressive disorder, not elsewhere classified Insomnia Insomnia, unspecified GERD (gastroesophageal reflux disease) Esophageal reflux Asthma Unspecified asthma Pneumonia Pneumonia, organism unspecified Chronic back pain Backache, unspecified Cervicalgia Asthma Unspecified asthma Narcolepsy 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 ([facility]) Major depressive disorder, single episode, severe, without mention of psychotic behavior GERD (gastroesophageal reflux disease) Esophageal reflux Impaired glucose tolerance Impaired glucose tolerance test Peptic ulcer disease Peptic ulcer, unspecified site, unspecified as acute or chronic, without mention of hemorrhage, perforation, or obstruction Degeneration of cervical intervertebral disc Anxiety Anxiety state, unspecified Chronic pain Other chronic pain Lumbar radicular pain Thoracic or lumbosacral neuritis or radiculitis, unspecified Rosacea Seasonal allergic rhinitis Allergic rhinitis, cause unspecified Atypical pneumonia Pneumonia, organism unspecified Screening for osteoporosis- Primary [...] Action Date Dose Rate Site acetaminophen (TYLENOL) 325 mg tablet 1 dose, Starting on Wed04/05/12 at 1325, Until Wed04/05/12 at 1351 acetaminophen (TYLENOL) tablet 650 mg 650 mg, oral, NOW X1, 1 dose, On Wed04/05/12 at 1415, STAT Given 04/05/2012 13:51 EDT 650 mg acetaminophen-codeine (TYLENOL #3) 300-30 mg per tablet 1-2 Tab 1-2 Tablet, oral, EVERY 4 HOURS PRN, Starting on Wed04/05/12 at 1719, Until Wed04/11/12 at 1749, Pain, STAT Given 04/11/2012 13:11 EDT 2 Tablets Given 04/10/2012 19:15 EDT 2 Tablets Given 04/10/2012 12:52 EDT 2 Tablets albuterol (PROVENTIL) 2.5 mg /3 mL (0.083 %) nebulizer solution 2.5 mg 2.5 mg, nebulization, EVERY 4 HOURS PRN, Starting on Wed04/05/12 at 2154, Until Wed04/06/12 at 2209, Wheezing, STAT Given 04/06/2012 22:05 EDT 2.5 mg Given 04/06/2012 15:22 EDT 2.5 mg albuterol (PROVENTIL) 2.5 mg /3 mL (0.083 %) nebulizer solution 2.5 mg 2.5 mg, nebulization, EVERY 4 HOURS WHILE AWAKE, First dose (after last modification) on Wed04/07/12 at 0600, Until Discontinued, Routine Given 04/07/2012 10:47 EDT 2.5 mg Given 04/07/2012 6:24 EDT 2.5 mg albuterol (PROVENTIL) 2.5 mg /3 mL (0.083 %) nebulizer solution 2.5 mg 2.5 mg, nebulization, 4 TIMES DAILY, First dose (after last modification) on Wed04/07/12 at 1700, Until Discontinued, Routine Given 04/10/2012 12:07 EDT 2.5 mg Given 04/10/2012 9:34 EDT 2.5 mg Given 04/09/2012 23:09 EDT 2.5 mg albuterol (PROVENTIL) 2.5 mg /3 mL (0.083 %) nebulizer solution 2.5 mg 2.5 mg, nebulization, EVERY 4 HOURS PRN, Starting on Wed04/07/12 at 1049, Until Wed04/11/12 at 1749, Wheezing, Routine Given 04/11/2012 0:00 EDT 2.5 mg azithromycin (ZITHROMAX) 500 mg in dextrose 5% (D5W) 250 mL IVPB 500 mg, intravenous, Administer over 60 Minutes, NOW X1, 1 dose, On Wed04/05/12 at 1615, STAT Given 04/05/2012 17:10 EDT 500 mg azithromycin (ZITHROMAX) tablet 250 mg 250 mg, oral, DAILY, 4 doses, First dose on Wed04/06/12 at 0900, Last dose on Wed04/09/12 at 0900, STAT Given 04/09/2012 9:18 EDT 250 mg Given 04/08/2012 8:52 EDT 250 mg Given 04/07/2012 8:03 EDT 250 mg baclofen (LIORESAL) tablet 5-10 mg 5-10 mg, oral, 3 TIMES DAILY PRN, Starting on Wed04/05/12 at 2154, Until Wed04/11/12 at 1749, Muscle Spasms, Pain, STAT Given 04/11/2012 12:50 EDT 10 mg Given 04/10/2012 9:08 EDT 10 mg cyclosporine (RESTASIS) 0.05 % ophthalmic emulsion 1 Drop 1 Drop, both eyes, EVERY 12 HOURS, First dose on Wed04/05/12 at 2215, Until Discontinued, STAT Given 04/11/2012 8:10 EDT 1 Drop Given 04/10/2012 21:50 EDT 4 Drops Given 04/10/2012 10:29 EDT 1 Drop docusate sodium (COLACE) capsule 100 mg 100 mg, oral, 2 TIMES DAILY PRN, Starting on Wed04/05/12 at 2154, Until Wed04/11/12 at 1749, Constipation, STAT Given 04/11/2012 9:39 EDT 100 mg Given 04/10/2012 22:01 EDT 100 mg doxycycline (VIBRA-TABS) tablet 100 mg 100 mg, oral, AT BEDTIME, 7 doses, First dose (after last modification) on Wed04/06/12 at 2115, Last dose on Wed04/12/12 at 2100, STAT Given 04/10/2012 21:51 EDT 1 00 mg Given 04/09/2012 21:58 EDT 100 mg Given 04/08/2012 20:14 EDT 100 mg fexofenadine (JUDTIH) 12 hr tablet 180 mg 180 mg, oral, DAILY, First dose on Wed04/06/12 at 0900, Until Discontinued, STAT Given 04/11/2012 9:25 EDT 180 mg Given 04/10/2012 9:07 EDT 180 mg Given 04/09/2012 9:18 EDT 180 mg fluticasone-salmeterol (ADVAIR) 500-50 mcg/dose diskus inhaler 1 Puff 1 Puff, inhalation, 2 TIMES DAILY, First dose on Wed04/05/12 at 2215, Until Discontinued, STAT Given 04/11/2012 8:51 EDT 1 Puff Given 04/10/2012 21:01 EDT 1 Puff Given 04/10/2012 9:34 EDT 1 Puff heparin injection 5,000 Units 5,000 Units, subcutaneous, EVERY 8 HOURS, First dose on Wed04/06/12 at 0000, Until Discontinued, STAT Given 04/11/2012 8:07 EDT 5,000 Units Ab dominal Tissue Given 04/10/2012 23:50 EDT 5,000 Units Given 04/10/2012 16:52 EDT 5,000 Units Abd ominal Tissue hydrocodone-acetaminophen (LORTAB;VICODIN) 5-500 mg tablet 1 Tab 1 Tablet, oral, EVERY 6 HOURS PRN, Starting on Wed04/05/12 at 2154, Until Wed04/11/12 at 1749, Pain, STAT Given 04/11/2012 15:13 EDT 1 Tablet Given 04/11/2012 5:46 EDT 1 Tablet Given 04/10/2012 23:50 EDT 1 Tablet hydroxypropyl methylcellulose (ISOPTO TEARS) 0.5 % ophthalmic solution 1 Drop 1 Drop, both eyes, 5 TIMES DAILY, First dose on Wed04/05/12 at 2215, Until Discontinued, STAT Given 04/11/2012 15:14 E DT 1 Drop Given 04/11/2012 12:50 EDT 1 Drop Given 04/11/2012 9:17 EDT 1 Drop ipratropium-albuterol (DUO-NEB) 0.5 mg-3 mg(2.5 mg base)/3 mL nebulizer solution 3 mL 3 mL, nebulization, NOW X1, 1 dose, On Wed04/05/12 at 1230, STAT Given 04/05/2012 12:27 EDT 3 mL ipratropium-albuterol (DUO-NEB) 0.5 mg-3 mg(2.5 mg base)/3 mL nebulizer solution 3 mL 3 mL, nebulization, NOW X1, 1 dose, On Wed04/05/12 at 1615, STAT Given 04/05/2012 16:01 EDT 3 mL ipratropium-albuterol (DUO-NEB) 0.5 mg-3 mg(2.5 mg base)/3 mL nebulizer solution 3 mL 3 mL, nebulization, 4 TIMES DAILY, First dose on Wed04/10/12 at 1700, Until Discontinued, Routine Given 04/11/2012 12:07 EDT 3 mL Given 04/11/2012 8:52 EDT 3 mL Given 04/10/2012 21:01 EDT 3 mL lorazepam (ATIVAN) tablet 0.5 mg 0.5 mg, oral, EVERY 6 HOURS PRN, Starting on Wed04/05/12 at 2154, Until Wed04/11/12 at 1749, anxiety, STAT Given 04/11/2012 9:41 EDT 0.5 mg Given 04/10/2012 22:01 EDT 0.5 mg mometasone (NASONEX) 50 mcg/actuation nasal spray 2 [place] 2 [place], nasal, DAILY, First dose on Wed04/06/12 at 0900, Until Discontinued, STAT Given 04/11/2012 9:24 EDT 2 Spr ays Given 04/10/2012 9:11 EDT 2 Sprays Given 04/09/2012 9:18 EDT 2 Sprays montelukast (SINGULAIR) tablet 10 mg 10 mg, oral, AT BEDTIME, First dose on Wed04/05/12 at 2215, Until Discontinued, STAT Given 04/10/2012 21:51 EDT 10 m g Given 04/09/2012 22:03 EDT 10 mg Given 04/08/2012 20:15 EDT 10 mg nortriptyline (PAMELOR) capsule 75 mg 75 mg, oral, AT BEDTIME, First dose (after last modification) on Wed04/06/12 at 2115, Until Discontinued, STAT Given 04/10/2012 21:50 EDT 75 mg Given 04/09/2012 21:58 EDT 75 mg Given 04/08/2012 20:15 EDT 75 mg ondansetron (PF) (ZOFRAN) 4 mg/2 mL injection 1 dose, Starting on Wed04/05/12 at 1320, Until Wed04/05/12 at 1350 ondansetron (PF) (ZOFRAN) injection 4 mg 4 mg, intravenous, NOW X1, 1 dose, On Wed04/05/12 at 1415, STAT Given 04/05/2012 13:50 EDT 4 mg pantoprazole (PROTONIX) tablet 40 mg 40 mg, oral, DAILY, First dose on Wed04/06/12 at 0900, Until Discontinued, Routine Given 04/11/2012 9:25 EDT 40 mg Given 04/10/2012 9:06 EDT 40 mg Given 04/09/2012 9:18 EDT 40 mg potassium chloride (KLOR-CON) packet 20 mEq 20 mEq, oral, NOW X1, 1 dose, On Wed04/08/12 at 1130, Routine Given 04/08/2012 12:10 EDT 20 mEq predniSONE (DELTASONE) tablet 60 mg 60 mg, oral, DAILY, First dose on Wed04/06/12 at 0900, Until Discontinued, STAT Given 04/09/2012 9:17 EDT 60 mg Given 04/08/2012 8:52 EDT 60 mg Given 04/07/2012 8:03 EDT 60 mg predniSONE (DELTASONE) tablet 60 mg 60 mg, oral, AT BEDTIME, 1 dose, First dose on Wed04/08/12 at 2100, Routine Given 04/08/2012 20:15 EDT 60 mg predniSONE (DELTASONE) tablet 60 mg 60 mg, oral, 2 TIMES DAILY, First dose (after last modification) on Wed04/09/12 at 2100, Until Discontinued, STAT Given 04/11/2012 9:24 EDT 60 mg Given 04/10/2012 21:50 EDT 60 mg Given 04/10/2012 9:06 EDT 60 mg pregabalin (LYRICA) capsule 150 mg 150 mg, oral, 3 TIMES DAILY, First dose on Wed04/05/12 at 2215, Until Discontinued, STAT Given 04/11/2012 14:30 EDT 150 mg Given 04/11/2012 9:41 EDT 150 mg Given 04/10/2012 21:51 EDT 150 mg rOPINIRole (REQUIP) tablet 2 mg 2 mg, oral, AT BEDTIME, First dose on Wed04/09/12 at 2100, Until Discontinued, Routine Given 04/10/2012 21:51 EDT 2 mg Given 04/09/2012 21:58 EDT 2 mg sertraline (ZOLOFT) tablet 200 mg 200 mg, oral, DAILY, First dose on Wed04/06/12 at 0900, Until Discontinued, STAT Given 04/11/2012 9:25 EDT 200 mg Given 04/10/2012 9:05 EDT 200 mg Given 04/09/2012 9:17 EDT 200 mg sodium chloride (NS) 0.9 % 1,000 mL BOLUS 1,000 mL, intravenous, Once (Without Time Specified), 1 dose, Starting on Wed04/05/12 at 1530, Until Wed04/05/12 at 1602, STAT Given 04/05/2012 15:27 EDT 1,000 mL sodium chloride (OCEAN) 0.65 % nasal spray 1 [place] 1 [place], nasal, PRN, Starting on Wed04/09/12 at 1637, Until Wed04/11/12 at 1749, Congestion, Routine Given 04/09/2012 17:39 EDT 1 [place] documented in this encounter Discontinued Medications Medication Sig Discontinue Reason Start Date End Da te methylphenidate (RITALIN;METHYLIN) 10 mg tablet Take one tab in the afternoon for narcolepsy 03/08/2012 04/11/2012 lorazepam (ATIVAN) 0.5 mg TabIndications:Anxiety Take 1 Tab by mouth every 6 hours as needed (anxiety). 01/01/2012 04/11/2012 Flaxseed Oil Oil by [employer].(Non-Drug; Combo Route) route. 04/11/2012 promethazine (PHENERGAN) 25 mg tabletIndications:GERD (gastroesophageal reflux disease) Take 1 Tab by mouth every 6 hours as needed for Nausea. 11/13/2010 04/11/2012 documented as of this encounter Active and Recently Administered Medications Times are shown in EDT. Scheduled Medication Order 04/09/2012 04/10/2012 04/11/2012 albuterol (PROVENTIL) 2.5 mg /3 mL (0.083 %) nebulizer solution 2.5 mg (CANCELED) 2.5 mg, nebulization, 4 TIMES DAILY, First dose (after last modification) on Wed04/07/12 at 1700, Until Discontinued, Routine 1012 (Given - Provider: Salima Morton, RT)1420 (Given - Provider: Vishnu Banegas, RT)1807 (Given - Provider: Jaycee George, RT)2309 (Given - Provider: Jaycee George, RT) 0934 (Given - Provider: Salima Morton, RT)1207 (Given - Provider: Jean Horton, RT) azithromycin (ZITHROMAX) tablet 250 mg (COMPLETED) 250 mg, oral, DAILY, 4 doses, First dose on Wed04/06/12 at 0900, Last dose on Wed04/09/12 at 0900, STAT 0918 (Given - Provider: Feliberto Castro) cyclosporine (RESTASIS) 0.05 % ophthalmic emulsion 1 Drop (CANCELED) 1 Drop, both eyes, EVERY 12 HOURS, First dose on Wed04/05/12 at 2215, Until Discontinued, STAT 0031 (Given - Provider: Aline Patino, CHRIS)1032 (Given - Provider: Feliberto Castro)2222 (Given - Provider: Aline Patino, CHRIS) 1029 (Given - Provider: Tereza Dutta, CHRIS)2150 (Given - Provider: Gina Funez, CHRIS) 0810 (Given - Provider: Tereza Dutta, CHRIS - Comment: per pt request)1243 (Not Given - Provider: Tereza Dutta RN - Reason: Other - Comment: pt requested at 0800 for med..pt does not want it right now.) doxycycline (VIBRA-TABS) tablet 100 mg (CANCELED) 100 mg, oral, AT BEDTIME, 7 doses, First dose (after last modification) on Wed04/06/12 at 2115, Last dose on Wed04/12/12 at 2100, STAT 2158 (Given - Provider: Aline Patino, CHRIS) 215 (Given - Provider: Gina Funez, CHRIS) fexofenadine (JUDITH) 12 hr tablet 180 mg (CANCELED) 180 mg, oral, DAILY, First dose on Wed04/06/12 at 0900, Until Discontinued, STAT 0918 (Given - Provider: Feliberto Castro) 0907 (Given - Provider: Tereza Dutta, CHRIS) 0925 (Given - Provider: Tereza Dutta, CHRIS) fluticasone-salmeterol (ADVAIR) 500-50 mcg/dose diskus inhaler 1 Puff (CANCELED) 1 Puff, inhalation, 2 TIMES DAILY, First dose on Wed04/05/12 at 2215, Until Discontinued, STAT 1012 (Given - Provider: Salima Morton, RT)2100 (Due) 0934 (Given - Provider: Salima Morton, RT)2101 (Given - Provider: Olegario Simms, RT) 0851 (Given - Provider: Musa Dunbar Jr., RT) heparin injection 5,000 Units (CANCELED) 5,000 Units, subcutaneous, EVERY 8 HOURS, First dose on Wed04/06/12 at 0000, Until Discontinued, STAT 0918 (Given - Provider: Feliberto Castro)1739 (Given - Provider: Feliberto Castro) 0033 (Given - Provider: Aline Patino, CHRIS)0910 (Given - Provider: Tereza Dutta, CHRIS)1652 (Given - Provider: Tereza Dutta, CHRIS)2350 (Given - Provider: Gina Funez, CHRIS) 0807 (Given - Provider: Tereza Dutta, CHRIS) hydroxypropyl methylcellulose (ISOPTO TEARS) 0.5 % ophthalmic solution 1 Drop (CANCELED) 1 Drop, both eyes, 5 TIMES DAILY, First dose on 7/24/12 at 2215, Until Discontinued, STAT 0604 (Given - Provider: Aline Patino RN)1030 (Not Given - Provider: Feliberto Castro - Reason: Patient/family refused)1454 (Not Given - Provider: Feliberto Castro - Reason: Patient/family refused)1800 (Hold - Provider: Feliberto Castro - Reason: Patient/family refused)2033 (Given - Provider: Aline Patino RN) 0614 (Given - Provider: Aline Patino RN)1121 (Given - Provider: Tereza Dutta RN)1651 (Given - Provider: Tereza Dutta RN)1922 (Given - Provider: Tereza Dutta RN)2349 (Given - Provider: Gina Funez RN) 0917 (Given - Provider: Tereza Dutta RN - Comment: per pt request)1250 (Given - Provider: Tereza Dutta RN)1514 (Given - Provider: Tereza Dutta RN) ipratropium-albuterol (DUO-NEB) 0.5 mg-3 mg(2.5 mg base)/3 mL nebulizer solution 3 mL 3 mL, nebulization, 4 TIMES DAILY, First dose on Wed04/10/12 at 1700, Until Discontinued, Routine 192 (Given by Other - Provider: Tereza Dutta RN - Comment: Administered by Respiratory Therapist.)2101 (Given - Provider: Olegario Simms, RT) 0852 (Given - Provider: Musa Dunbar Jr., RT)1207 (Given - Provider: Musa Dunbar Jr., RT) mometasone (NASONEX) 50 mcg/actuation nasal spray 2 [place] (CANCELED) 2 [place], nasal, DAILY, First dose on Wed04/06/12 at 0900, Until Discontinued, STAT 0918 (Given - Provider: Feliberto Castro) 0911 (Given - Provider: Tereza Dutta RN) 0924 (Given - Provider: Tereza Dutta RN) montelukast (SINGULAIR) tablet 10 mg (CANCELED) 10 mg, oral, AT BEDTIME, First dose on Wed04/05/12 at 2215, Until Discontinued, STAT 2203 (Given - Provider: Ailne Patino RN) 215 (Given - Provider: Gina Funez, CHRIS) nortriptyline (PAMELOR) capsule 75 mg (CANCELED) 75 mg, oral, AT BEDTIME, First dose (after last modification) on Wed04/06/12 at 2115, Until Discontinued, STAT 2158 (Given - Provider: Aline Patino RN) 215 (Given - Provider: Gina Funez RN) pantoprazole (PROTONIX) tablet 40 mg (CANCELED) 40 mg, oral, DAILY, First dose on Wed04/06/12 at 0900, Until Discontinued, Routine 0918 (Given - Provider: Feliberto Castro) 09 (Given - Provider: Tereza Dutta RN) 0925 (Given - Provider: Tereza Dutta RN) predniSONE (DELTASONE) tablet 60 mg (CANCELED) 60 mg, oral, DAILY, First dose on Wed04/06/12 at 0900, Until Discontinued, STAT 0917 (Given - Provider: Feliberto Castro) predniSONE (DELTASONE) tablet 60 mg (CANCELED) 60 mg, oral, 2 TIMES DAILY, First dose (after last modification) on Wed04/09/12 at 2100, Until Discontinued, STAT 2158 (Given - Provider: Aline Patino RN) 09 (Given - Provider: Tereza Dutta RN)215 (Given - Provider: Gina Funez RN) 0924 (Given - Provider: Tereza Dutta RN) pregabalin (LYRICA) capsule 150 mg (CANCELED) 150 mg, oral, 3 TIMES DAILY, First dose on Wed04/05/12 at 2215, Until Discontinued, STAT 0918 (Given - Provider: Feliberto Castro)1405 (Given - Provider: Feliberto Castro)215 (Given - Provider: Aline Patino RN) 0909 (Given - Provider: Tereza Dutta RN)1410 (Given - Provider: Tereza Dutta, CHRIS)215 (Given - Provider: Gina Funez RN) 0941 (Given - Provider: Tereza Dutta RN)1430 (Given - Provider: Tereza Dutta RN) rOPINIRole (REQUIP) tablet 2 mg (CANCELED) 2 mg, oral, AT BEDTIME, First dose on Wed04/09/12 at 2100, Until Discontinued, Routine 2157 (Given - Provider: Aline Patino RN) 215 (Given - Provider: Gina Funez, CHRIS) sertraline (ZOLOFT) tablet 200 mg (CANCELED) 200 mg, oral, DAILY, First dose on Wed04/06/12 at 0900, Until Discontinued, STAT 0917 (Given - Provider: Feliberto Castro) 0905 (Given - Provider: Tereza Dutta RN) 0925 (Given - Provider: Tereza Dutta RN) PRN Medication Order 04/09/2012 04/10/2012 04/11/2012 acetaminophen-codeine (TYLENOL #3) 300-30 mg per tablet 1-2 Tab (CANCELED) 1-2 Tablet, oral, EVERY 4 HOURS PRN, Starting on Wed04/05/12 at 1719, Until Wed04/11/12 at 1749, Pain, STAT 0609 (Given - Provider: Aline Patino RN)1320 (Given - Provider: Feliberto Castro)2031 (Given - Provider: Aline Patino RN) 1252 (Given - Provider: Tereza Dutta RN)1915 (Given - Provider: Tereza Dutta RN) 1311 (Given - Provider: Tereza Dutta RN) albuterol (PROVENTIL) 2.5 mg /3 mL (0.083 %) nebulizer solution 2.5 mg (CANCELED) 2.5 mg, nebulization, EVERY 4 HOURS PRN, Starting on Cayla 04/07/12 at 1049, Until Wed04/11/12 at 1749, Wheezing, Routine 0000 (Given - Provider: Olegario Simms, RT) baclofen (LIORESAL) tablet 5-10 mg (CANCELED) 5-10 mg, oral, 3 TIMES DAILY PRN, Starting on Wed04/05/12 at 2154, Until Wed04/11/12 at 1749, Muscle Spasms, Pain, STAT 0908 (Given - Provider: Tereza Dutta RN) 1250 (Given - Provider: Tereza Dutta RN) docusate sodium (COLACE) capsule 100 mg (CANCELED) 100 mg, oral, 2 TIMES DAILY PRN, Starting on Wed04/05/12 at 2154, Until Wed04/11/12 at 1749, Constipation, STAT 2201 (Given - Provider: Gina Funez RN) 0939 (Given - Provider: Tereza Dutta RN) hydrocodone-acetaminop hen (LORTAB;VICODIN) 5-500 mg tablet 1 Tab (CANCELED) 1 Tablet, oral, EVERY 6 HOURS PRN, Starting on Wed04/05/12 at 2154, Until Wed04/11/12 at 1749, Pain, STAT 0918 (Given - Provider: Feliberto Castro)1745 (Given - Provider: Feliberto Castro)2202 (Given - Provider: Aline Patino RN) 0908 (Given - Provider: Tereza Dutta RN)1650 (Given - Provider: Tereza Dutta RN)2350 (Given - Provider: Gina Funez RN) 0546 (Given - Provider: Gina Funez RN)1513 (Given - Provider: Tereza Dutta RN) lorazepam (ATIVAN) tablet 0.5 mg 0.5 mg, oral, EVERY 6 HOURS PRN, Starting on Wed04/05/12 at 2154, Until Wed04/11/12 at 1749, anxiety, STAT 2201 (Given - Provider: Gina Funez RN) 0941 (Given - Provider: Tereza Dutta RN) sodium chloride (OCEAN) 0.65 % nasal spray 1 [place] (CANCELED) 1 [place], nasal, PRN, Starting on 04/09/12 at 1637, Until Wed04/11/12 at 1749, Congestion, Routine 1739 (Given - Provider: Feliberto Castro) documented in this encounter Orders Medications Ordered That Victor Manuel ht Not Have Been Administered Count Last Ordered Date First Ordered Date methylphenidate (RITALIN SR; METADATE ER; METHYLIN ER) ER tablet 40 mg 1 04/06/2012 sumatriptan (IMITREX) tablet 50 mg 1 2011 zolpidem (AMBIEN) tablet 5 mg 1 04/06/2012 doxycycline (VIBRA-TABS) tablet 100 mg 1 methylphenidate (RITALIN SR; METADATE ER; METHYLIN ER) ER tablet 20 mg 1 04/05/2012 methylphenidate (RITALIN;MET HYLIN) tablet 10 mg 1 04/05/2012 nortriptyline (PAMELOR) capsule 75 mg 1 omeprazole (PRILOSEC) capsule 20 mg 1 04/05 EKG Orders Without Results Count Last Ordered D ate First Ordered Date EKG 12-LEAD 1 04/05/2012 Nursing Count Last Ordered Date First Orde red Date INSERT PERIPHERAL IV 1 04/05/2012 MEASURE WEIGHT 1 04/05/2012 PULSE OXIMETRY 2 04/05/2012 Respiratory Care Count Last Ordered Date First Ordered Date NEBULIZER TX INTERMITTENT 18 04/11/2012 DRY POWDERED INHALER 7 04/10/2012 012 Admission Count Last Ordered Date First Orde red Date STATUS: INPATIENT ACUTE ADMISSION 2 012 Transfer Count Last Ordered Date First Orde red Date CHANGE ATTENDING TO: 1 04/11/2012 NOTIFY PPS OF ROOM CHANGE COMPLETE 1 2011 PPS NOTIFICATION OF PATIENT ARRIVAL ON UNIT 1 04/05/2012 Discharge Count Last Ordered Date First Orde red Date DISCHARGE PATIENT 1 04/11/2012 documented in this encounter Care Teams Powderman Relationship Specialty Start Date End Date Jean Munoz MD [address] [place] [phone] PCP - General 12/31/08 [place] [address] [place] [phone] 04/20/10 documented as of this encounter
--- OUTSIDE RECORDS SUMMARY | 2024-06-10 07:31 | XMS_ITS | Encounter Summary ---
Author Organization [facility] Address [address] [place] [address] Care Team Providers Care Strategic Partnership Specialist Name Role Phone Jean Munoz MD Primary Care Provider Manny Rizzo MD Unavailable Reason for Visit * Reason Onset Date Comments Eye Problem 06/02/2012 Right eye bleedi ng Encounter Details Date Type Department Care Team (Late st Contact Info) Description 06/02/2012 Telephone [facility] Ophthalmology - [facility] [address] [place], [place] [phone] Giovanni Rodriguez MD [address] [facility], [address] [place] [address] Eye Problem (Right eye bleeding) Social History Tobacco Use Types Packs/Day Years [...] Miscellaneous Notes * Telephone Encounter - Eliza Ny OTA - 06/02/2012 1118 EDT Nature of problem? Patient reports intermittent bleeding from right eye like tears Onset and Duration? Over past couple of days Is this an injury? No Pain? No Have you recently had eye surgery? No Are you having flashes/and or floaters? Chronic floaters, increasing recently Any sensitivity to light? No Any loss of vision/curtain/darkness/veil? No Any change in vision/double vision/blurred? Diplopia longstanding with worsening over past couple of days Any redness? No, but a little bloodshot Who is your usual eye doctor? Michael Any other pertinent information? No history of same. Please ask how long it would take them to get to [facility], if they were to be told to come. Patient lives in [place] and think she will be able to get a ride in today. I will run this by Dr. Rodriguez (as she is his patient) to see if he would like to see her or if Dr. Livingston should. Dr. Rodriguez will see the patient today at 3:00, Kait is calling her to schedule * Telephone Encounter - Isaiah Montenegro - 06/02/2012 1117 EDT Started a couple of days ago, went away and now is doing it again since this morning. Sees Dr Rodriguez for rosacea and dry eyes. documented in this encounter Plan of Treatment Upcoming Encounters Date Type Department Care Team (Late st Contact Info) Description 06/29/2024 14:15 EDT Office Visit [facility] [address] [place] [address] Jean Munoz MD [address] [place] [address] documented as of this encounter Visit Diagnoses Not on filedocumented in this encounter Care Teams Strategic Partnership Specialist Relationship Specialty Start Date End Date Jean Munoz MD [address] [place] [phone] PCP - General 12/31/08 Manny Rizzo MD [address] [place] [phone] 04/20/10 documented as of this encounter
--- OUTSIDE RECORDS SUMMARY | 2024-06-10 07:31 | XMS_ITS | Encounter Summary ---
Author Organization [facility] Address [address] [place] [address] Care Team Providers Care Family Court Registrar Name Role Phone Jean Munoz MD Primary Care Provider Manny Rizzo MD Unavailable Reason for Visit * Reason Comments Other Encounter Details Date Type Department Care Team (Late st Contact Info) Description 04/12/2012 8:40 EDT Office Visit [facility] Sleep Program - [address] [id number] Tiana Bacon [address] [place] [address] Narcolepsy without cataplexy (Primary Dx); Restless leg syndrome Social History Tobacco Use Types Packs/Day [...] Sign Reading Time Taken Comments Blood Pressure 112/64 04/12/2012 0844 EDT Pulse 93 04/12/2012 0844 EDT Temperature - - Respiratory Rate - - Oxygen Saturation 96% 04/12/2012 0844 EDT Oxy gen at 4LPM Inhaled Oxygen Concentration - - Weight 92.1 kg (203 lb) 04/12/2012 0844 EDT Height - - Body Mass Index 33.78 04/05/2012 1741 EDT documented in this encounter Functional Status Cognitive Status Response Date of Assessm ent Because of a physical, menta l, or emotional condition, do you have serious difficulty concentrating, remembering, or making decisions? (5 years old or older) Yes 04/05/2012 documented as of this encounter Ordered Prescriptions Prescription Sig Dispensed Refills Start Date End Da te methylphenidate (RITALIN SR; METADATE ER; METHYLIN ER) 20 mg SR tablet Brand only. Take 2 tabs in the morning for narcolepsy. 60 Tab 0 04/12/2012 05/11/2012 methylphenidate (RITALIN;METHYLIN) 10 mg tablet Take one tab in the afternoon for narcolepsy 30 Tab 0 04/12/2012 05/11/2012 documented in this encounter Progress Notes * Tiana Bacon MD - 04/12/2012 0903 EDT HPI: Ms. 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 She was hospitalized in the past week for pneumonia. She is currently on supplementalO2. She had quit smoking at the beginning of the year. She states that with regards to her narcolepsy, her symptoms are pretty well controlled. She feels that her sleepiness which she had expressed at her last visit was due to the winter season. She has occasional sleepy days and it is not as bad as before. Since it is summer time she can get out of the yard, and do activities. She does not drive. She does not have alcohol, but has 2-3 Pepsi a day. She has occasional trouble falling asleep, but she relates this to her stress/ anxiety level. She takes Ambien on those occassions. She also takes ropiripirinole for RLS every night which controlls her symtpoms well. Outpatient Prescriptions Marked as Taking for the 04/12/12 encounter (Office Visit) with Tiana Bacon MD Medication Sig Dispense Refill ??? ipratropium-albuterol (DUO-NEB) 0.5 mg-3 mg(2.5 mg base)/3 mL nebulizer solution Take 3 mL by nebulization 4 times daily. 2 Box 0 ??? predniSONE (DELTASONE) 10 mg tablet Take 1 Tab by mouth daily. 04/11 take 8 tab, 04/12 take 6 tab, 8 take 4 tab, 8 take 2 tab, 83 take 1 tab. 21 Tab 0 ??? [...] Nasal route daily. 3 Inhaler 4 ??? omeprazole (PRILOSEC) 20 mg capsule [...] Tromethamine) Hives ??? Motrin (Ibuprofen) Itching ROS: See history of present illness for pertinent positives and negatives EXAM: Filed Vitals: 04/12/12 0844 BP: 112/64 Pulse: 93 Weight: 92.08 kg (203 lb) SpO2: 96% Heart: RRR, normal S1, S2 Lungs: wheeze on expiration bilaterally A/P: Ms. 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 Her symptoms are well-controlled on her current dose of methylphenidate. She noted that some of her sleepiness during the wintertime was likely do to seasonal variations. During the summertime she states, that she can get out and move about more freely, whereas in the winter she tends to be confined to her home. With regards to her use of Ambien, she states that she takes only occasionally on nights that she cannot sleep do to anxiety or stress. Patients with narcolepsy can sometimes have difficulty consolidating their sleep during the night but this does not seem to be her iss ue. Additionally her RLS appears to be well-controlled on her current dose of her ropirinole. --Continue current medications --Follow up in 6 mos documented in this encounter Plan of Treatment Upcoming Encounters Date Type Department Care Team (Late st Contact Info) Description 06/29/2024 14:15 EDT [facility] [address] [place] [address] Jean Munoz MD [address] [place] [phone] documented as of this encounter Visit Diagnoses Diagnosis Narcolepsy without cataplexy(347.00)- Primary Narcolepsy without cataplexy Restless leg syndrome Restless legs syndrome (RLS) Screening for [...] tabs in the morning for narcolepsy. Reorder 03/08/2012 04/12/2012 documented as of this encounter Care Teams Family Court Registrar Relationship Specialty Start Date End Date Jean Munoz MD [address] [place] [phone] PCP - General 12/31/08 Manny Rizzo MD [address] [place] [phone] 04/20/10 documented as of this encounter
--- OUTSIDE RECORDS SUMMARY | 2024-06-10 07:31 | XMS_ITS | Encounter Summary ---
Author Organization [facility] Address [address] [place] [address] Care Team Providers Care Hay Buckler Name Role Phone Jean Munoz MD Primary Care Provider Manny Rizzo MD Unavailable Reason for Referral * Consult, Test and Treat (Routine/Next Available) - Closed Specialty Diagnoses / Procedures Referred By Alex weldon Referred To Contact Diagnoses [place] [address] [place] [address] Referral ID Status Reason Start Date Expiration Date V isits Requested Visits Authorized [id number] Closed Specialty Services Required 03/30/2012 1 1 Question Answer Reason for Request: contusion ant, med. left knee. ? med. meniscus tear Comments Rom, quad strengthening and pain relief modaltieis Reason for Visit * Reason Comments Knee Pain left Encounter Details Date Type Department Care Team (Late st Contact Info) Description 03/30/2012 10:30 EDT Office Visit [facility] [place] [address] [place] [address] Shane Mabry Left knee injury (Primary Dx) Social History Tobacco Use Types Packs/Day Years Used Date Smoking Tobacco: Former Cigarettes 0.5 30 0 10/14/1980 - 10/14/2010 Smokeless Tobacco: [...] - - Weight 93.9 kg (207 lb) 03/30/2012 1035 EDT Height 162.6 cm (5' 4) 03/30/2012 1035 EDT Body Mass Index 35.53 03/30/2012 1035 EDT documented in this encounter Functional Status Cognitive Status Response Date of Assessm ent Because of a physical, menta l, or emotional condition, do you have serious difficulty concentrating, remembering, or making decisions? (5 years old or older) Yes 09/19/2010 documented as of this encounter Ordered Prescriptions Prescription Sig Dispensed Refills Start Date End Da te acetaminophen-codeine (TYLENOL #3) 300-30 mg per tablet Take 1-2 Tabs by mouth every 4 hours as needed for Pain. 45 Each 0 03/30/2012 04/28/2012 documented in this encounter Progress Notes * Shane Mabry, AIRAM - 03/30/2012 1053 EDT OFFICE VISIT: Left knee injury. SUBJECTIVE: The patient is being seen in Dr Powers's absence. The patient suffered this____ injuryfrom a fall, acute contusion to the medial aspect of the knee back in December. She is continuing to have significant pain mostly medially and anteriorly with continued effusion. She is here to follow up with her MRI. OBJECTIVE: On exam, there is a 1+ effusion present. Range of motion from 0 with some pain to bouncetest to about 120 degrees flexion before pain, mostly medially. She has pain more into the anteriormedial joint space and medial femoral condyle where she sustained her contusion, but there is also e xacerbations to Cleve's testing, mostly medially. Patella tracks well, but there is some crepitance on compression testing. She has no pain laterally. Good stable endpoint Micha's, anterior drawer testing. IMAGING: Review of the MRI does show evidence of bony contusion in the area that she sustained the injury, but there is also a posterior medial meniscus tear. ASSESSMENT AND PLAN: It is difficult on exam to determine really what is her main source of pain, but due to the duration of her symptoms and the disability that it is causing, I have some concerns for this meniscal pathology. Hence, I would like to have her followed up with one of the knee surgeons for their exam and opinion as to whether any surgical intervention would be appropriate. In the meantime, we will have her started on some physical therapy to see if this gives her a little bit moreconfidence in sport and the knee, and improve her symptoms any. documented in this encounter Plan of Treatment Upcoming Encounters Date Type Department Care Team (Late st Contact Info) Description 06/29/2024 14:15 EDT Office Visit [facility] [address] [place] [address] Jean Munoz MD [address] [place] [phone] Scheduled Referrals Name Type Priority Associated Diagnoses Orde r Schedule AMB CONSULT PHYSICAL THERAPY Outpatient Referral Routine Left knee injury Ordered: 03/30/2012 documented as of this encounter Visit Diagnoses Diagnosis Left knee injury- Primary Injury, other and unspecified, knee, leg, ankle, and foot Screening for osteoporosis- Primary Special screening for osteoporosis Primary narcolepsy without cataplexy Chronic pain syndrome Chronic low back pain Lumbago Chronic use of opiate for therapeutic purpose Pain medication agreement Encounter for long-term (current) use of other medications Screen for colon cancer Special screening for malignant neoplasms, colon documented in this encounter Care Teams Hay Buckler Relationship Specialty Start Date End Date Jean Munoz MD [address] [place] [address] PCP - General 12/31/08 Manny Rizzo MD [address] [place] [address] 04/20/10 documented as of this encounter
--- OUTSIDE RECORDS SUMMARY | 2024-06-10 07:31 | XMS_ITS | Encounter Summary ---
Author Organization [facility] Address [address] [place] [address] Care Team Providers Care Employment Coach Name Role Phone Jean Munoz MD Primary Care Provider Manny Rizzo MD Unavailable Reason for Visit * Reason Onset Date Comments Medications Refill 03/31/2012 Encounter Details Date Type Department Care Team (Late st Contact Info) Description 03/31/2012 Refill [facility] [address] [place], [place] [phone] Jean Munoz MD [address] [place] [address] Medications Refill Social History Tobacco [...] Yes 09/19/2010 documented as of this encounter Miscellaneous Notes * Telephone Encounter - Adrienne Farmer LPN - 03/31/2012 1113 EDT Patient brought in Tylenol #[address] Munoz aware that patient brought in medication. Rivas at [facility] was called and given ok per Dr. Munoz to fill new Lortab script. * Telephone Encounter - Sapna Dominguez - 03/31/2012 1026 EDT Rivas from [facility] in [place] is calling to ask Dr. Munoz if he is aware that Dr. Mabry prescribed tylenol [address] Munoz printed a Rx for Lortab today. Pt has not filled this Rx yet. Please call. documented in this encounter Plan of Treatment Upcoming Encounters Date Type Department Care Team (Late st Contact Info) Description 06/29/2024 14:15 EDT Office Visit [facility] [address] [place], [place] [phone] Jean Munoz MD [address] [place] [address] documented as of this encounter Visit Diagnoses Not on filedocumented in this encounter Care Teams Employment Coach Relationship Specialty Start Date End Date Jean Munoz MD [address] [place] [address] PCP - General 12/31/08 Manny Rizzo MD [address] [place] [phone] 04/20/10 documented as of this encounter
--- OUTSIDE RECORDS SUMMARY | 2024-06-10 07:31 | XMS_ITS | Encounter Summary ---
Author Organization [facility] Address [address] [place] [address] Care Team Providers Care Plastic Press Operator Name Role Phone Jean Munoz MD Primary Care Provider Manny Rizzo MD Unavailable Reason for Visit * Reason Comments Knee Pain Left knee injury in December , recent MRI contusion/meniscus tear, seen by Ortho yesterday, plan to see surgeon Encounter Details Date Type Department Care Team (Late st Contact Info) Description 03/31/2012 9:00 EDT Office Visit [facility] [address] [place] [address] Jean Munoz MD [address] [place] [address] Left knee pain (Primary Dx); Asthma Social History Tobacco Use Types Packs/Day [...] Reading Time Taken Comments Blood Pressure 130/74 03/31/201202 EDT Pulse 72 03/31/2012901 EDT Temperature 36 ??C (96.8 ??F) 03/31/2012 09 EDT Respiratory Rate - - Oxygen Saturation - - Inhaled Oxygen Concentration - - Weight 93.4 kg (206 lb) 03/31/2012 09 EDT Height 162.6 cm (5' 4) 03/31/2012901 EDT Body Mass Index 35.36 03/31/2012901 EDT documented in this encounter Functional Status Cognitive Status Response Date of Assessm ent Because of a physical, menta l, or emotional condition, do you have serious difficulty concentrating, remembering, or making decisions? (5 years old or older) Yes 09/19/2010 documented as of this encounter Ordered Prescriptions Prescription Sig Dispensed Refills Start Date End Da te hydrocodone-acetaminophen (LORTAB;VICODIN) 5-500 mg tablet Take 1 Tab by mouth every 6 hours as needed for Pain. 112 Tab 0 03/31/2012 04/28/2012 predniSONE (DELTASONE) 20 mg tablet Take 2 Tabs by mouth daily for 5 days. 10 Tab 3 03/31/2012 04/05/2012 montelukast (SINGULAIR) 10 mg tablet Take 1 Tab by mouth at bedtime. 30 Tab 2 03/31/2012 07/16/2012 documented in this encounter Progress Notes * Jean Munoz MD - 03/31/2012 0910 EDT Subjective: Patient ID: Liset Viera is an 51 y.o. female. Chief Complaint Patient presents with ??? Knee Pain Left knee injury in December , recent MRI contusion/meniscus tear, seen by Ortho yesterday, plan to see surgeon HPI 1. Left knee pain Injury in December Not improving Taking Tylenol hanfuls at a time Out of Vicodin Ty #3 does nt work Cant take ibuprofen hives Seen by Ortho as above Has appointment with Dr Glynn in April 14. Asthma +wheezing Using levalbuterol nearly every day ON Advair 500/50 bid Judith and Nasonex for allergies Neighbors cat visits often Non smoker Has not had no allergy or Pulmonary consult Patient Active Problem List Diagnoses ??? Severe [...] of left knee ??? Left knee pain Past Medical History Diagnosis Date ??? [...] Narcolepsy ??? Asthma ??? Anxiety ??? Depression Current Outpatient Prescriptions on File Prior to Visit Medication Sig Dispense Refill ??? acetaminophen-codeine (TYLENOL #3) 300-30 mg per tablet Take 1-2 Tabs by mouth every 4 hours asneeded for Pain. 45 Each 0 ??? methylphenidate (RITALIN SR; METADATE ER; [...] Topics ??? Smoking status: Former Smoker -- 0.5 packs/day for 30 years Types: Cigarettes Quit date: 10/14/2010 ??? Smokeless tobacco: Never Used ??? Alcohol Use: No rarely ROS - See HPI Objective: BP 130/74 Pulse 72 Temp(Src) 36 ??C (96.8 ??F) (Oral) Ht 162.6 cm (64) Wt 93.441 kg (206 lb) BMI 35.36 kg/m2 Physical Exam Left knee with moderate swelling and limited ROM Assessment: Plan: Liset was seen today for knee pain. Diagnoses and associated orders for this visit: Left knee pain Confirmed contusion and mensicus tear on MRI Surgical consult pending Ty 3 not effective per patient Has history of chronic pain with chronic opioids in past Discontinued due to cannabis use per policy However acute pain treatment seems reasonable Asked patient to bring in unused medication for verification Will cover with Vicodin 4/day Recheck 4 weeks Anticipate D/C soon after surgery No narcs from other providers Asthma Not well controlled Prednisone x 5 days Add Singulair Other Orders - montelukast (SINGULAIR) 10 mg tablet; Take 1 Tab by mouth at bedtime. - predniSONE (DELTASONE) 20 mg tablet; Take 2 Tabs by mouth daily for 5 days. - hydrocodone-acetaminophen (LORTAB;VICODIN) 5-500 mg tablet; Take 1 Tab by mouth every 6 hours as needed for Pain. Patient Education Topic: as above Method: Verbal Taught to: Patient Barriers: None Outcomes: Verbalized understanding Return in 4 weeks (on 04/28/2012) for SERA. documented in this encounter Plan of Treatment Upcoming Encounters Date Type Department Care Team (Late st Contact Info) Description 06/29/2024 14:15 EDT Office Visit [facility] Medicine [facility] [address] [place], [place] [phone] Jean Munoz MD [address] [place] [phone] documented as of this encounter Visit Diagnoses Diagnosis Left knee pain- Primary Pain in joint, lower leg Asthma Unspecified asthma Screening for osteoporosis- Primary [...] Da te hydrocodone-acetaminophe n (LORTAB;VICODIN) 5-500 mg per tablet Take 1 Tab by mouth every 6 hours as needed for Pain. Reorder 02/19/2012 03/31/2012 documented as of this encounter Care Teams Plastic Press Operator Relationship Specialty Start Date End Date Jean Munoz MD [address] [place] [address] PCP - General 12/31/08 Manny Rizzo MD [address] [place] [phone] 04/20/10 documented as of this encounter
--- OUTSIDE RECORDS SUMMARY | 2024-06-10 07:31 | XMS_ITS | Encounter Summary ---
Author Organization [facility] Address [address] [place] [address] Care Team Providers Care Category Development Analyst Name Role Phone Jean Munoz MD Primary Care Provider Manny Rizzo MD Unavailable Reason for Referral * (Routine/Next Available) - Closed Specialty Diagnoses / Procedures [facility] Referred To Contact Diagnoses Pneumonia Procedures SPIROMETRY Sender, Donald Urena PA-C [address] [place] [phone] Referral ID Status Reason Start Date Expiration Date Visits Re quested Visits Authorized [id number] Closed 05/27/2012 1 1 Encounter Details Date Type Department Care Team (Late st Contact Info) Description 05/27/2012 Orders Only [facility] Pulmonology & Critical Care - [address] [id number] Sender, Donald Urena PA-C [address] [place] [phone] Pneumonia (Primary Dx) Social History Tobacco Use Types [...] Office Visit [facility] [address] [place], [place] [phone] Jean Munoz MD [address] [place] [address] documented as of this encounter Visit Diagnoses Diagnosis Pneumonia- Primary Pneumonia, organism unspecified Screening for osteoporosis- Primary [...] Last Ordered Date First Orde red Date SPIROMETRY 1 05/27/2012 documented in this encounter Care Teams Category Development Analyst Relationship Specialty Start Date End Date Jean Munoz MD [address] [place] [phone] PCP - General 12/31/08 Manny Rizzo MD [address] [place] [phone] 04/20/10 documented as of this encounter
--- OUTSIDE RECORDS SUMMARY | 2024-06-10 07:31 | XMS_ITS | Encounter Summary ---
Author Organization [facility] Address [address] [place] [address] Care Team Providers Care Assistant Associate Full Professor Name Role Phone Jean Munoz MD Primary Care Provider Manny Rizzo MD Unavailable Reason for Visit * Reason Comments Knee Pain left knee pain Encounter Details Date Type Department Care Team (Late st Contact Info) Description 04/20/2012 9:00 EDT Office Visit [facility] Medicine Program - [address] [phone] Bear Glynn MD [address] [place] [phone] Left knee pain (Primary Dx) Social [...] Progress Notes * Bear Glynn MD - 05/16/2012 1544 EDT PROBLEM: Left knee pain. SUBJECTIVE: Ms Viera is a 51-year-old woman who injured her knee on 01/09/2012 when she tripped on a curb and fell forward landing directly on the front of her left knee. She has been seen by both Dr Powers and by Mr. Mabry. An MRI has been obtained. She is here today for my evaluation. 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 She has discomfort when she walks. She also has swelling. She notes that today is the least amount of swelling that she has had since she fell. She denies any locking. She has occasional feelings of giving way. She has no pain getting in and out of a car; however, stubbing her toe does cause some discomfort and she points to the medial side of her knee. She has had no treatment thus far including physical therapy. OBJECTIVE: Examination of the left knee shows tenderness over the anterior aspect of the knee in the area of the pes anserinus on the medial retinaculum. There is no palpable effusion. Range of motion shows full extension, flexion to greater than 90. There is no posteromedial or posterolateral joint line tenderness. Negative Micha, negative posterior drawer. The knee is stable tovarus and valgus stress in full extension or 30 degrees of flexion. Review of her MR dated 03/21/2012 shows soft tissue swelling, best seen on the T2- weighted images localized in the prepatellar area overlying the patellar tendon as well as the medial retinaculum extending to the pes. The marrow signal in the distal femur and proximal tibia is homogeneous. The MCL, LCL and posterolateral corner structures are within normal limits. The ACL and PCL appear to be intact. There is someslight thinning of the articular cartilage of the medial femoral condyle and medial tibial plateau;however, there is no evidence of full-thickness erosion. The medial meniscus, lateral meniscus and lateral articular cartilage appear to be intact. The articular cartilage of the patella was within normal limits, as is the trochlea. ASSESSMENT: I think that Ms Viera basically has a contusion. She has some degeneration of the posterior horn of her medial meniscus, but there is no mary tear. The meniscal signal is just blunting of the root of the meniscus. I suggested a course of physical therapy to work on modalities to reduce her pain levels. After herpain levels are manageable, range of motion strengthening can be introduced. She was satisfied withthis plan. PLAN: Physical therapy. I will see her back in 8 weeks for followup. documented in this encounter Plan of Treatment Upcoming Encounters Date Type Department Care Team (Late st Contact Info) Description 06/29/2024 14:15 EDT Office Visit [facility] [address] [place] [address] Jean Munoz MD [address] [place] [phone] documented as of this encounter Visit [...] documented in this encounter Care Teams Assistant Associate Full Professor Relationship Specialty Start Date End Date Jean Munoz MD [address] [place] [phone] PCP - General 12/31/08 Manny Rizzo MD [address] [place] [phone] 04/20/10 documented as of this encounter
--- OUTSIDE RECORDS SUMMARY | 2024-06-10 07:31 | XMS_ITS | Encounter Summary ---
Author Organization [facility] Address [address] [place] [address] Care Team Providers Care Inspector Final Assembly Conveyor Line Name Role Phone Jean Munoz MD Primary Care Provider Manny Rizzo MD Unavailable Reason for Visit * Reason Onset Date Comments New Patient Visit 04/26/2012 Encounter Details Date Type Department Care Team (Late st Contact Info) Description 04/26/2012 Telephone [facility] Pulmonology & Critical Care - [facility] [address] [place], [place] [phone] Jean Munoz MD [address] [place] [phone] New Patient Visit Social History Tobacco Use Types Packs/Day Years [...] * Telephone Encounter - Telma Bosch - 05/10/2012 1018 EDT 06/08/12 PF1 @ 8:30, SENDER @ 8:45 LETTER SENT TO PATIENT WITH APPOINTMENT INFORMATION * Telephone Encounter - Elder Rosita Jorge - 04/26/2012 1145 EDT Patient needs an NPV for Atypical pneumonia and asthma per Dr. Munoz office. Please call patient. documented in this encounter Plan of Treatment Upcoming Encounters Date Type Department Care Team (Late st Contact Info) Description 06/29/2024 14:15 EDT Office Visit [facility] Medicine [facility] [address] [place], [place] [phone] Jean Munoz MD [address] [place] [phone] documented as of this encounter Visit Diagnoses Not on filedocumented in this encounter Care Teams Inspector Final Assembly Conveyor Line Relationship Specialty Start Date End Date Jean Munoz MD [address] [place] [phone] PCP - General 12/31/08 Manny Rizzo MD [address] [place] [phone] 04/20/10 documented as of this encounter
--- OUTSIDE RECORDS SUMMARY | 2024-06-10 07:31 | XMS_ITS | Encounter Summary ---
Author Organization [facility] Address [address] [place] [address] Care Team Providers Care Repairing Calibrator Name Role Phone Jean Munoz MD Primary Care Provider Manny Rizzo MD Unavailable Reason for Visit * Reason Onset Date Comments Other 04/27/2012 Encounter Details Date Type Department Care Team (Late st Contact Info) Description 04/27/2012 Telephone [facility] [address] [place] [address] Jean Munoz MD [address] [place] [phone] Other Social History Tobacco Use Types [...] Telephone Encounter - Jean Munoz MD - 04/27/2012 1725 EDT noted * Telephone Encounter - Sapna Dominguez - 04/27/2012 1153 EDT Mariely from [facility] is calling to let Dr. Munoz know that pt is being discharged from Home Health PT, and she has educated pt on outpatient therapy. documented in this encounter Plan of Treatment Upcoming Encounters Date Type Department Care Team (Late st Contact Info) Description 06/29/2024 14:15 EDT Office Visit [facility] [address] [place], [place] [phone] Jean Munoz MD [address] [place] [phone] documented as of this encounter Visit Diagnoses Not on filedocumented in this encounter Care Teams Repairing Calibrator Relationship Specialty Start Date End Date Jean Munoz MD [address] [place] [phone] PCP - General 12/31/08 Manny Rizzo MD [address] [place] [phone] 04/20/10 documented as of this encounter
--- OUTSIDE RECORDS SUMMARY | 2024-06-10 07:31 | XMS_ITS | Encounter Summary ---
Author Organization [facility] Address [address] [place] [address] Care Team Providers Care Etl Application Developer Name Role Phone Jean Munoz MD Primary Care Provider Manny Rizzo MD Unavailable Reason for Visit * Reason Onset Date Comments Medications Refill 03/08/2012 Encounter Details Date Type Department Care Team (Late st Contact Info) Description 03/08/[address] [facility] Sleep Program - [address] [phone] Tiana Bacon [address] [place] [phone] Medications Refill Social History Tobacco Use [...] the afternoon for narcolepsy 30 Tab 0 03/08/2012 04/11/2012 methylphenidate (RITALIN SR; METADATE ER; METHYLIN ER) 20 mg SR tablet Brand only. Take 2 tabs in the morning for narcolepsy. 60 Tab 0 03/08/2012 04/12/2012 documented in this encounter Miscellaneous Notes * Telephone Encounter - Corrina Ac RN - 03/08/2012 0939 EDT Called pt and let her know her prescriptions (ritalin) ready for bean picker. * Telephone Encounter - Bambi Zhou - 03/08/2012 0851 EDT Patient needs refill on Ritalin SR brand only & Ritalin 10mg brand only. Please call patient when script is ready to be picked up. documented in this encounter Plan of Treatment Upcoming Encounters Date Type Department Care Team (Late st Contact Info) Description 06/29/2024 14:15 EDT Office Visit [facility] [address] [place], [place] [phone] Jean Munoz MD [address] [place] [phone] documented as of this encounter Visit Diagnoses Not on filedocumented in this encounter Discontinued Medications Medication Sig Discontinue Reason Start Date End Da te methylphenidate (RITALIN SR; METADATE ER; METHYLIN ER) 20 mg SR tablet Brand only. Take 2 tabs in the morning for narcolepsy. Reorder 02/09/2012 03/08/2012 methylphenidate (RITALIN;METHYLIN) 10 mg tablet Brand only. Take one tab in the afternoon for narcolepsy Reorder 02/09/2012 03/08/2012 documented as of this encounter Care Teams Etl Application Developer Relationship Specialty Start Date End Date Jean Munoz MD [address] [place] [phone] PCP - General 12/31/08 Manny Rizzo MD [address] [place] [phone] 04/20/10 documented as of this encounter
--- OUTSIDE RECORDS SUMMARY | 2024-06-10 07:31 | XMS_ITS | Encounter Summary ---
Author Organization [facility] Address [address] [place] [address] Care Team Providers Care Direct Marketing Representative Name Role Phone Jean Munoz MD Primary Care Provider Manny Rizzo MD Unavailable Reason for Visit * Reason Comments Follow-up Encounter Details Date Type Department Care Team (Late st Contact Info) Description 04/28/2012 10:30 EDT Office Visit [facility] [address] [place] [address] Jean Munoz MD [address] [place] [phone] Atypical pneumonia (Primary Dx); Left knee pain Social History Tobacco Use [...] Reading Time Taken Comments Blood Pressure 118/70 04/28/2012 1028 EDT Pulse 102 04/28/2012 1028 EDT Temperature 36.1 ??C (97 ??F) 04/28/2012 1028 EDT Respiratory Rate - - Oxygen Saturation - - Inhaled Oxygen Concentration - - Weight 91.2 kg (201 lb) 04/28/2012 1028 EDT Height 162.6 cm (5' 4) 04/28/2012 1028 EDT Body Mass Index 34.5 04/28/2012 1028 EDT documented in this encounter Functional Status Cognitive Status Response Date of Assessm ent Because of a physical, menta l, or emotional condition, do you have serious difficulty concentrating, remembering, or making decisions? (5 years old or older) Yes 04/05/2012 documented as of this encounter Ordered Prescriptions Prescription Sig Dispensed Refills Start Date End Da te hydrocodone-acetaminophen (LORTAB;VICODIN) 5-500 mg tabletIndications:Left knee pain Take 1 Tab by mouth every 6 hours as needed for Pain. 112 Tab 0 04/28/2012 05/26/2012 documented in this encounter Progress Notes * Jean Munoz MD - 04/28/2012 1300 EDT Subjective: Patient ID: Liset Viera is an 51 y.o. female. Chief Complaint Patient presents with ??? Follow-up HPI Atypical pneumonia No fever, chills, sweats, breathing improving, still on oxygen but weaning off, now 2.5 L (2 at night), sleep is better No cough Energy improving Left knee pain Seen by Ortho, plan PT 8 weeks, needs medical OK first Had MRI +MMT Taking Vicodin 4/day Has been dependent on narcotics in past Patient Active Problem List Diagnoses ??? Severe [...] ??? Atypical pneumonia ??? Narcolepsy without cataplexy Past Medical History Diagnosis Date ??? UTI [...] mouth at bedtime. 30 Tab 2 ??? zolpidem (AMBIEN) 10 mg tablet [...] ROS - See HPI Objective: BP 118/70 Pulse 102 Temp(Src) 36.1 ??C (97 ??F) (Oral) Ht 162.6 cm (64) Wt 91.173 kg (201 lb) BMI 34.50 kg/m2 Physical Exam dyspnea improved, on O2 nasal cannula Assessment: Plan: Liset was seen today for follow-up. Diagnoses and associated orders for this visit: Atypical pneumonia Clinically improving Pulmonary referral pending Left knee pain - hydrocodone-acetaminophen (LORTAB;VICODIN) 5-500 mg tablet; Take 1 Tab by mouth every 6 hours as needed for Pain. Recommend PT Goal is wean from narcotics as soon as possible Patient Education Topic: as above Method: Verbal Taught to: Patient Barriers: None Outcomes: Verbalized understanding Return in 4 weeks (on 05/26/2012) for ROV. documented in this encounter Miscellaneous Notes * Assessment & Plan Note - Jean Munoz MD - 04/28/2012 1100 EDT Associated Problem(s): Left knee pain Seen by Ortho, plan PT 8 weeks, needs medical OK first Had JM +MMT * Assessment & Plan Note - Jean Munoz MD - 04/28/2012 1059 EDT Associated Problem(s): Atypical pneumonia (Resolved 08/29/2012) No fever, chills, sweats, breathing improving, still on oxygen but weaning off, now 2.5 L (2 at night), sleep is better No cough Energy improving documented in this encounter Plan of Treatment Upcoming Encounters Date Type Department Care Team (Late st Contact Info) Description 06/29/2024 14:15 EDT Office Visit [facility] [address] [place], [place] [phone] Jean Munoz MD [address] [place] [phone] documented as of this encounter Visit Diagnoses Diagnosis Atypical pneumonia- Primary Pneumonia, organism unspecified Left knee pain Pain in joint, [...] Discontinue Reason Start Date End Da te acetaminophen-codeine (TYLENOL #3) 300-30 mg per tablet Take 1-2 Tabs by mouth every 4 hours as needed for Pain. Patient Stopped Taking 03/30/2012 04/28/2012 hydrocodone-acetaminop hen (LORTAB;VICODIN) 5-500 mg tablet Take 1 Tab by mouth every 6 hours as needed for Pain. Reorder 03/31/2012 04/28/2012 documented as of this encounter Care Teams Direct Marketing Representative Relationship Specialty Start Date End Date Jean Munoz MD [address] [place] [phone] PCP - General 12/31/08 Manny Rizzo MD [address] [place] [phone] 04/20/10 documented as of this encounter
--- OUTSIDE RECORDS SUMMARY | 2024-06-10 07:31 | XMS_ITS | Encounter Summary ---
Author Organization [facility] Address [address] [place] [address] Care Team Providers Care Patient Scheduling Manager Name Role Phone Jean Munoz MD Primary Care Provider Manny Rizzo MD Unavailable Reason for Visit * Reason Onset Date Comments Referral Request 04/13/2012 Encounter Details Date Type Department Care Team (Late st Contact Info) Description 04/13/2012 Telephone [facility] [address] [place] [address] Jean Munoz MD [address] [place] [phone] Referral Request Social History Tobacco Use [...] encounter Miscellaneous Notes * Telephone Encounter - Jacqueline Minaya LPN - 04/13/2012 1543 EDT Orders called to [facility] for mental health referral * Telephone Encounter - Jean Munoz MD - 04/13/2012 1538 EDT yes * Telephone Encounter - Jacqueline Minaya LPN - 04/13/2012 1525 EDT Patient recently d/c from hospital with [facility]. They admitted her today and would like to have a mental health referral done. Is this OK? * Telephone Encounter - Tessie Munroe - 04/13/2012 1417 EDT Nurse requesting a mental health referral. She had admitted her to [facility] today also. Please advise documented in this encounter Plan of Treatment Upcoming Encounters Date Type Department Care Team (Late st Contact Info) Description 06/29/2024 14:15 EDT Office Visit [facility] Medicine [facility] [address] [place] [address] Jean Munoz MD [address] [place] [phone] documented as of this encounter Visit Diagnoses Not on filedocumented in this encounter Care Teams Patient Scheduling Manager Relationship Specialty Start Date End Date Jean Munoz MD [address] [place] [phone] PCP - General 12/31/08 Manny Rizzo MD [address] [place] [phone] 04/20/10 documented as of this encounter
--- OUTSIDE RECORDS SUMMARY | 2024-06-10 07:31 | XMS_ITS | Encounter Summary ---
Author Organization [facility] Address [address] [place] [address] Care Team Providers Care Aircraft Pneudraulics Repairer Name Role Phone Jean Munoz MD Primary Care Provider Manny Rizzo MD Unavailable Reason for Visit * Reason Comments Eye Drainage Patient states past 2-3 days with blood from around right eye as bloody tears. Eyes itch. Some blur in right eye with occasional horizontal diplopia. Patient states using Artificial tears often. Encounter Details Date Type Department Care Team (Late st Contact Info) Description 06/02/2012 15:00 EDT Office Visit [facility] Ophthalmology - [address] [address] Giovanni Rodriguez MD [address] [facility], [address] [place] [address] Discharge Disposition: Auto Discharge Social [...] Progress Notes * Giovanni Rodriguez MD - 06/03/2012 0610 EDT DIVISION OF OPHTHALMOLOGY [facility] June 02, 2012 Siena Rivera MD [address] [place] [address] Rivera: I saw Liset Viera today as an emergency. She is a patient I have followed because of some double vision. Recently, over the last 2 to 3 days, she has had spontaneous bloody tears from the right eye. She does have dry eyes, and I had previously placed punctal plugs. I first thought this was going to be aplug problem, but, in fact, when I saw the patient, the punctal plugs had spontaneously extruded and that is not the source. In fact, at first I thought that there was very minimal dried blood on thelashes and the lid, but I could not see an obvious spot. Eventually, with everting the upper lid onthe superolateral aspect of the tarsus, there is what appears to be a varix or complex of abnormal vessels. With a little bit of my aggravation to this area, it did start to bleed. This stopped rather quickly. I then applied some phenylephrine topical and looked further. It is anirregular area that does not have a solid epithelial cover. Khushboo, I think this is a small varix or an angioma of the upper lid. Would you please see her and see if we should take steps to try and cauterize these vessels and if that is possible? I know that this is your second day back. I will call you tomorrow. Hopefully, we can get her in tosee you fairly soon. I will try and call you in the morning and see if we can find a time for this patient see you. In the meantime, I have asked her if she does have bleeding to apply gentle pressure, and I think that it will stop spontaneously. She knows to call me if there is change or concern in the interval. Khushboo, welcome back. We are really glad you are back. Sincerely, Electronically Signed by Giovanni Rodriguez MD 06/07/2012 08:09 Giovanni Rodriguez MD - Giovanni Rodriguez MD - Job ID: Doc ID: [id number] [facility] Doc ID: [id number] cc: MD Jean Gonzalez MD * Yvonne Boyer - 06/02/2012 1630 EDT . Base Ophthalmology Exam Visual Acuity Right Left Both Dist cc 20/25 20/20 -2 Near cc J2 J1 Method: Snellen - Linear Wearing Rx Sphere Cylinder Add Right +1.25 Sphere +1.50 Left +1.25 Sphere +1.50 Age: 2yrs Type: Bifocal Manifest Refraction Sphere Cylinder [place] Dist Add Near Right +1.50 +0.75 025 20/20-1 +2.50 J1+ Left +2.00 Sphere 20/15 +2.50 J1+ Stereo Fly: + Lan sec Circles: 05/22 Comments: +3.25 readers Color Right Left Color 07/27 07/27 Method: AO PIP Pupils Dark Light React APD Right 5 3 Sluggish None Left 5 3 Sluggish None Visual Wolf Right Left Result Full Full Extraocular Movement Right Left Result Full Full Comments: 2 Prism 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 Base Ophthalmology Exam Addl. Tests Amsler Right Left Amsler Normal Normal Main Ophthalmology Exam Slit Lamp Exam Right Left Lids/Lashes Blood at lash roots, Blepharitis Blepharitis Conjunctiva/Sclera Trace injection Trace injection Cornea Clear Clear Anterior Chamber Deep and quiet Deep and quiet Iris No TI No TI Neuro/Psych Oriented x3: Yes Mood/Affect: Normal Cornea examined, all 5 layers. ROS, Medications, Allergies reviewed. Lids, lashes, lacrimal and orbit examined. All normal unless otherwise noted. This note has been dictated and scanned. . IMP: There are no diagnoses linked to this encounter. PLAN: documented in this encounter Miscellaneous Notes * Scanned Note-Null - ED CASE MANAGER, SCAN 2 - 06/13/2012 1426 EDT documented in this encounter Plan of Treatment Upcoming Encounters Date Type Department Care Team (Late st Contact Info) Description 06/29/2024 14:15 EDT Office Visit [facility] [place] [address] [place] [address] Jean Munoz MD [address] [place] [phone] documented as of this encounter Visit Diagnoses Diagnosis Varix- Primary Asymptomatic varicose veins Rosacea Blepharitis of both eyes Blepharitis, unspecified Tear film insufficiency, unspecified Vitreous syneresis Other vitreous opacities Diplopia Senile nuclear sclerosis Migraine Migraine, unspecified, without mention of intractable migraine without mention of status migrainosus Impaired glucose tolerance Impaired glucose tolerance test [...] Right eye Left eye Dist cc 20/25 20/20 -2 Near cc J2 J1 Pupils Dark Light React APD Right eye 5 3 Sluggish None Left eye 5 3 Sluggish None Visual Wolf Right eye Left eye Full Full Extraocular Movement Right eye Left eye Full Full 2 Prism 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 Neuro/Psych Oriented x3: Yes Mood/Affect: Normal Amsler Right eye Left eye Normal Normal Color Right eye Left eye AO PIP 07/27 07/27 Stereo Fly: + Circles: / Lan sec +3.25 readers Slit Lamp Exam Right eye Left eye Lids/Lashes Blood at lash roots, Blepharitis Blepharitis Conjunctiva/Sclera Trace injection Trace injecti on Cornea Clear Clear Anterior Chamber Deep and quiet Deep and quiet Iris No TI No TI Wearing Rx Sphere Cylinder Add Right eye +1.25 Sphere +1.50 Left eye +1.25 Sphere +1.50 Age: 2yrs Type: Bifocal Manifest Refraction Sphere Cylinder [place] Dist VA Add Near VA Right eye +1.50 +0.75 025 20/20-1 +2.50 J1+ Left eye +2.00 Sphere 20/15 +2.50 J1+ Care Teams Aircraft Pneudraulics Repairer Relationship Specialty Start Date End Date Jean Munoz MD [address] [place] [phone] PCP - General 12/31/08 Manny Rizzo MD [address] [place] [phone] 04/20/10 documented as of this encounter
--- OUTSIDE RECORDS SUMMARY | 2024-06-10 07:31 | XMS_ITS | Encounter Summary ---
Author Organization [facility] Address [address] [place] [address] Care Team Providers Care Wrapping Machine Operator Name Role Phone Jean Munoz MD Primary Care Provider Manny Rizzo MD Unavailable Reason for Referral * Consult (Routine/Next Available) - Closed Specialty Diagnoses / Procedures [facility] Referred To Contact Orthopedic Surgery Diagnoses Ankle fracture, right Jean Munoz MD [address] [place] [phone] [facility] Ortho Foot And Ankle [address] [place] [address] Referral ID Status Reason Start Date Expiration Date V isits Requested Visits Authorized [id number] Closed Specialty Services Required 05/26/2012 1 1 Question Answer Reason for Request: right ankle fracture [facility], now wants hardware removed Reason for Visit * Reason Comments Knee Pain follow up Medication Management Encounter Details Date Type Department Care Team (Late st Contact Info) Description 05/26/2012 8:00 EDT Office Visit [facility] [address] [place] [address] Jean Munoz MD [address] [place] [phone] Chronic knee pain (Primary Dx); Left knee pain; Prediabetes; Asthma; Ankle fracture, right; Insomnia Social History Tobacco Use Types Packs/Day [...] Sign Reading Time Taken Comments Blood Pressure 100/58 05/26/2012 08 EDT Pulse 68 05/26/2012 08 EDT Temperature 36 ??C (96.8 ??F) 05/26/2012 0812 EDT Respiratory Rate 16 05/26/2012 0812 EDT Oxygen Saturation - - Inhaled Oxygen Concentration - - Weight 91.3 kg (201 lb 3.2 oz) 05/26/2012 0812 E DT Height - - Body Mass Index 34.54 04/28/2012 1028 EDT documented in this encounter Functional Status Cognitive Status Response Date of Assessm ent Because of a physical, menta l, or emotional condition, do you have serious difficulty concentrating, remembering, or making decisions? (5 years old or older) Yes 04/05/2012 documented as of this encounter Patient Instructions * Patient Instructions* Jean Munoz MD - 05/26/2012 8:52 EDT Images from the original note were not included. [facility] Patient Instructions Prediabetes: After Your Visit Your Care Instructions Prediabetes is a warning sign that you are at risk for getting type 2 diabetes. It means that your blood sugar is higher than it should be. Most people who get type 2 diabetes have prediabetes first.The good news is that lifestyle changes may help you get your blood sugar back to normal and avoid or delay diabetes. Also, women who get gestational diabetes may have prediabetes first. Type 2 diabetes is a lifelong disease in which the body does not respond properly to a hormone called insulin or does not make enough of the hormone. Insulin helps sugar from your food enter your body cells to be used as energy. Without insulin, the sugar cannot get into the cells to do its work. It stays in the blood instead.This can cause high blood sugar levels. A person has diabetes when the blood sugar stays too high too much of the time. Follow-up care is a horton part of your treatment and safety. Be sure to make and go to all appointments, and call your doctor if you are having problems. It???s also a good idea to know your test results and keep a list of the medicines you take. How can you care for yourself at home? ?? Watch your weight. A healthy weight helps your body use insulin properly. ?? Eat a balanced diet. This may help you prevent or delay diabetes. Try to eat an even amount of carbohydrate throughout the day. This can help you avoid sudden peaks in blood sugar. ?? Ask your doctor if you should see a dietitian. A registered dietitian can help you develop a meal plan that fits your lifestyle. ?? Get at least 30 minutes of exercise on most days of the week. Exercise helps control your blood sugar. It also helps you maintain a healthy weight. Walking is a good choice. You also may want to do other activities, such as running, swimming, cycling, or playing tennis or team sports. ?? Do not smoke. Smoking can make prediabetes worse. If you need help quitting, talk to your doctorabout stop-smoking programs and medicines. These can increase your chances of quitting for good. ?? If your doctor prescribed medicines, take them exactly as prescribed. Call your doctor if you think you are having a problem with your medicine. You will get more details on the specific medicinesyour doctor prescribes. When should you call for help? Watch closely for changes in your health, and be sure to contact your doctor if: ?? You have any symptoms of diabetes. These may include: ?? Being thirsty more often. ?? Urinating more. ?? Being hungrier. ?? Losing weight. ?? Being very tired. ?? Having blurry vision. ?? You have a wound that will not heal. ?? You have an infection that will not go away. ?? You have problems with your blood pressure. ?? You want more information about diabetes and how you can keep from getting it. Where can you learn more? Go to www.Zimory.net/fahc Enter I222 in the search box to learn more about Prediabetes: After Your Visit. ?? [id number] [employer]. Care instructions adapted under license by [facility], [facility]. This care instruction is for use with your licensed healthcare professional. If you have questions about a medical condition or this instruction, always ask your healthcare professional. [employer] disclaims any warranty or liability for your use of this information. Content Version: 9.2.035453; Last Revised: September 30, 2010 documented in this encounter Ordered Prescriptions Prescription Sig Dispensed Refills Start Date End Da te pregabalin (LYRICA) 150 mg capsuleIndications:Chroni c knee pain Take 1 Cap by mouth 2 times daily. 60 Each 5 05/26/2012 06/24/2012 zolpidem (AMBIEN) 10 mg tabletIndications:Insomni a Take 1 Tab by mouth at bedtime as needed for Sleep. 30 Each 2 05/26/2012 08/29/2012 hydrocodone-acetaminophen (LORTAB;VICODIN) 5-500 mg tabletIndications:Chronic knee pain Take 1 Tab by mouth every 6 hours as needed for Pain. 112 Tab 0 05/26/2012 06/24/2012 documented in this encounter Progress Notes * Jean Munoz MD - 05/26/2012 0847 EDT Subjective: Patient ID: Liset Viera is an 51 y.o. female. Chief Complaint Patient presents with ??? Knee Pain follow up ??? Medication Management HPI Left knee pain Working with PT, going OK, still with pain, [facility], had Ortho consult with Dr Glynn in early April Prediabetes Had elevated sugar in hospital, A1C 6.0 this summer, no meds, not checking sugars Ankle fracture, right Has hardware from prior surgery, wants removed due to discomfort Asthma Breathing has been pretty good, no wheezing, Advair dialy needs refills of pregabalin, Vicodin, Ambien Patient Active Problem List Diagnoses ??? Severe [...] pneumonia ??? Narcolepsy without cataplexy ??? Prediabetes Past Medical History Diagnosis Date ??? UTI [...] needed for Nausea. 30 Tab 1 ??? methylphenidate (RITALIN SR; METADATE ER; METHYLIN ER) 20 mg SR tablet Brand only. Take 2 tabs in the morning for narcolepsy. 60 Tab 0 ??? methylphenidate (RITALIN;METHYLIN) 10 mg tablet Take one tab in the afternoon for narcolepsy 30Tab 0 ??? sumatriptan (IMITREX) 50 mg tablet TAKE 1 TABLET BY MOUTH ONCE NEEDED FOR MIGRAINE FOR 1 DOSE 9 Each 2 ??? ipratropium-albuterol (DUO-NEB) 0.5 mg-3 mg(2.5 mg base)/3 mL nebulizer solution Take 3 mL by nebulization 4 times daily. 2 Box 0 ??? lorazepam (ATIVAN) 0.5 mg tablet [...] rarely ROS - See HPI Objective: BP 100/58 Pulse 68 Temp(Src) 36 ??C (96.8 ??F) (Tympanic) Resp 16 Wt 91.264 kg (201 lb 3.2 oz) Physical Exam deferred Assessment: Plan: Liset was seen today for knee pain and medication management. Diagnoses and associated orders for this visit: Chronic knee pain - At risk for narc dependency (has had in past, previously discontinued due to marijuana use) - Needs ORtho F/u, plan is eventual wean after PT or other intervention - hydrocodone-acetaminophen (LORTAB;VICODIN) 5-500 mg tablet; Take 1 Tab by mouth every 6 hours as needed for Pain. - pregabalin (LYRICA) 150 mg capsule; Take 1 Cap by mouth 2 times daily. - Drug Screen 6 - Opiate Confirmation Left knee pain Prediabetes Discussed pathophysiology Encouraged diet, exercise, weight loss Asthma Stable Ankle fracture, right Refer to Ortho Insomnia - zolpidem (AMBIEN) 10 mg tablet; Take 1 Tab by mouth at bedtime as needed for Sleep. Patient Education Topic: as above Method: Verbal Taught to: Patient Barriers: None Outcomes: Verbalized understanding Return in about 1 month (around 06/25/2012) for SERA. documented in this encounter Miscellaneous Notes * Assessment & Plan Note - Jean Munoz MD - 05/26/2012 0835 EDT Associated Problem(s): Asthma (Resolved 03/03/2017) Breathing has been pretty good, no wheezing, Advair dialy * Assessment & Plan Note - Jean Munoz MD - 05/26/2012 0833 EDT Associated Problem(s): Fracture of right ankle (Resolved 08/29/2012) Has hardware from prior surgery, wants removed due to discomfort * Assessment & Plan Note - Jean Munoz MD - 05/26/2012 0832 EDT Associated Problem(s): Borderline diabetes mellitus (Deleted) Had elevated sugar in hospital, A1C 6.0 this summer, no meds, not checking sugars * Assessment & Plan Note - Jaen Munoz MD - 05/26/2012 0821 EDT Associated Problem(s): Left knee pain Working with PT, going OK, still with pain, [facility], had Ortho consult with Dr Glynn in early April documented in this encounter Plan of Treatment Upcoming Encounters Date Type Department Care Team (Late st Contact Info) Description 06/29/2024 14:15 EDT Office Visit [facility] [address] [place], [place] [id number] Jean Munoz MD [address] [place] [phone] Scheduled Referrals Name Type Priority Associated Diagnoses Order Schedule AMB CONSULT ORTHOPEDICS Outpatient Referral Routine Ankle fracture, right Ordered: 05/26/2012 documented as of this encounter Procedures Procedure Name Priority Date/Time Associated Diagnosis Comments DRUG SCREEN 6 Routine 05/26/2012 8:44 EDT Chronic knee pain OPIATE PANEL CONFIRMATION Routine 05/26/2012 8:44 EDT Chronic knee pain documented in this encounter Results * OPIATE CONFIRMATION (05/26/2012 8:44 EDT) Opiates Positive Cutoff: 300 ng/mL [facility] Comment: (Note) This report is intended for use in clinical monitoring and management of patients. It is not intended for use in employment-related drug testing. Conf, Opiates Positive [facility] Codeine Negative <100 ng/mL [facility] Hydrocodone 962 <100 ng/mL [facility] Hydromorphone 733 <100 ng/mL [facility] Morphine Negative <100 ng/mL [facility] Oxycodone Negative <100 ng/mL [facility] Oxymorphone Negative <100 ng/mL [facility] Comment: (Note) This report is intended for use in clinical monitoring and management of patients. It is not intended for use in employment-related drug testing. Performed by: [facility], [address], [place] [address], Transportation Escort: Liset Dick, Ph.D. Urine specimen (specimen) URINE / Unknown 05/26/2012 8:44 EDT 05/26/2012 13:19 EDT Jean Munoz MD [facility] [place] [facility] [address] [place] [address] * DRUG SCREEN 6 (05/26/2012 8:44 EDT) Amphetamine Screen, Urine Negative screen. [facility] Comment: Confirmation testing available upon request. Suitable for medical purposes only. Will not detect all drugs within class. Cutoff = 1000 ng/ml Barbiturate Screen, Urine Negative screen. [facility] Comment: Confirmation testing available upon request. Suitable for medical purposes only. Will not detect all drugs within class. Cutoff = 300 ng/ml Benzodiazepine Screen, Urine Negative screen. [facility] [...] drugs within class. Cutoff = 50 ng/ml Cocaine Metabolites, Ur Negative screen. [facility] Comment: Confirmation testing available upon request. Suitable for medical purposes only. Will not detect all drugs within class. Cutoff = 300 ng/ml Opiate Scrn, Ur Presumptive positive, interpret with caution. [facility] Comment: Confirmation testing available upon request. Suitable for medical purposes only. Will not detect all drugs within class. Cutoff = 300 ng/ml Assay less sensitive to oxycodone and metabolites. Assay does not detect methadone. Urine specimen (specimen) URINE / Unknown 05/26/2012 8:44 EDT 05/26/2012 13:19 EDT Jean Munoz MD [facility]IS [place] [facility] Organization Address City/State/ZIP Co de Phone Number [facility] [address] [place] [address] documented in this encounter Visit Diagnoses Diagnosis Chronic knee pain- Primary Pain in joint, lower leg Left knee pain Pain in joint, lower leg Prediabetes Other abnormal glucose Asthma Unspecified asthma Ankle fracture, right Unspecified closed fracture of ankle Insomnia Insomnia, unspecified Screening for osteoporosis- Primary [...] Da te predniSONE (DELTASONE) 10 mg tablet Take 1 Tab by mouth daily. 04/11 take 8 tab, 04/12 take 6 tab, 8/1 take 4 tab, 8/2 take 2 tab, 8/3 take 1 tab. Therapy completed 04/11/2012 05/26/2012 hydrocodone-acetaminophe n (LORTAB;VICODIN) 5-500 mg tabletIndications:Left knee pain Take 1 Tab by mouth every 6 hours as needed for Pain. Reorder 04/28/2012 05/26/2012 zolpidem (AMBIEN) 10 mg tabletIndications:Insomn ia Take 1 Tab by mouth at bedtime as needed for Sleep. Reorder 03/08/2012 05/26/2012 LYRICA 150 mg capsule TAKE 1 CAPSULE BY MOUTH THREE TIMES A DAY Reorder 11/13/2011 05/26/2012 documented as of this encounter Care Teams Wrapping Machine Operator Relationship Specialty Start Date End Date Jean Munoz MD [address] [place] [phone] PCP - General 12/31/08 Manny Rizzo MD [address] [place] [phone] 04/20/10 documented as of this encounter
--- OUTSIDE RECORDS SUMMARY | 2024-06-10 07:31 | XMS_ITS | Encounter Summary ---
Author Organization [facility] Address [address] [place] [address] Care Team Providers Care Enterprise Data Architect Name Role Phone Jean Munoz MD Primary Care Provider Manny Rizzo MD Unavailable Encounter Details Date Type Department Care Team (Late st Contact Info) Description 03/19/2012 Results Only Imaging [facility] - [address] [address] Segundo Cordova MD [address] [place] [phone] Social History Tobacco Use Types Packs/Day [...] Yes 09/19/2010 documented as of this encounter Plan of Treatment Upcoming Encounters Date Type Department Care Team (Late st Contact Info) Description 06/29/2024 14:15 EDT Office Visit [facility] [address] [place] [address] Jean Munoz MD [address] [place] [phone] documented as of this encounter Procedures Procedure Name Priority Date/Time Associated Diagnosis Comments MR EXTREMITY KNEE WO CONTRAST 03/21/2012 20:53 EDT documented in this encounter Results * MR EXTREMITY KNEE WO CONTRAST (03/21/2012 20:53 EDT) Anatomical Region Laterality Modality Other 03/21/2012 20:5 3 EDT 03/22/2012 17:08 EDT Narrative 03/22/2012 17:08 EDT MR EXTREMITY KNEE WO CONTRAST ??Mar 21, 2012 08:53:00 PM Signs and Symptoms/Comments: ??719.46-PAIN IN JOINT, LOWER [id number] Left knee injury, continued pain and swelling, possible bone contusions and articular cartilage damage. Comparison: Radiographs left knee 11/04/2004. Technique: ??Routine multiplanar sagittal, coronal, axial conventional MR images with long and short TR sequences of the left knee were obtained without intra-articular or intravenous contrast administration. Findings: Elongated linear fluid signal collection with surrounding edema in the subcutaneous fat overlying the medial patellar retinacular structures and extending into the prepatellar and infrapatellar regions. Findings in the appropriate clinical context are compatible with sequela from soft tissue contusion with elongated mostly thin caliber posttraumatic fluid collection. Please correlate. Mild residual edema also involves the underlying medial patellar structures. The medial meniscus posterior horn shows diminutive and truncated appearance, findings consistent with a fairly extensive moderate to high-grade radial tear (sagittal 18-23). The lateral menisci is intact as are its anterior and posterior root ligament attachments. The anterior and posterior cruciate ligaments are intact. The medial collateral ligament fibers are in continuity, but appear slightly lax, a finding consistent sequela from prior partial MCL injury. ?? The lateral supporting structures of the knee are intact as are the posterolateral and posteromedial corners of the knee. The patellar tendon and distal quadriceps tendon are intact. Medial femorotibial compartment weight-bearing surfaces show mild articular cartilage thinning, with the chondral wear most conspicuous on the peripheral margins of the joint in the region of the aforementioned radial tear mainly involving the medial meniscus posterior horn. Small area of chondral surface irregularity and thin chondral fissure seen at the patellar median ridge. Medial aspect of the femoral trochlea on its inferior portion shows a small a site of full-thickness chondral fissuring (sagittal image 17, axial image 14). There is a small volume of fluid within the suprapatellar recess, but with no sizable knee joint effusion evident. No osseous fracture or sizable bone contusion visualized. Impression: 1. Findings in the proper clinical context compatible with sequela from localized soft tissue contusion at the anteromedial aspect of the knee. This manifests mainly as focal area of soft tissue edema, with elongated mostly thin caliber posttraumatic fluid collection in the subcutaneous fat overlying the medial patellar retinacular structures and extending into the prepatellar and infrapatellar regions. Please correlate. Also with mild residual edema involving the underlying medial patellar retinacular structures. 2. Medial meniscus posterior horn shows diminutive and truncated appearance, findings consistent with a fairly extensive moderate to high-grade radial tear 3. Mild residual changes from prior partial MCL injury, as described above. 4. Mild degenerative changes are evident in the medial femorotibial compartment and patellofemoral compartment. See above description for details. 5. No osseous fracture or sizable bone contusion visualized. . I have personally reviewed the images and the above interpretation and agree with the findings. Procedure Note Dave Chavez MD - 03/22/2012 MR EXTREMITY KNEE WO CONTRAST Mar 21, 2012 08:53:00 PM Signs and Symptoms/Comments: 719.46-PAIN IN JOINT, LOWER [id number] Left knee injury, continued pain and swelling, possible bone contusions and articular cartilage damage. Comparison: Radiographs left knee 11/04/2004. Technique: Routine multiplanar sagittal, coronal, axial conventional MR images with long and short TR sequences of the left knee were obtained without intra-articular or intravenous contrast administration. Findings: Elongated linear fluid signal collection with surrounding edema in the subcutaneous fat overlying the medial patellar retinacular structures and extending into the prepatellar and infrapatellar regions. Findings in the appropriate clinical context are compatible with sequela from soft tissue contusion with elongated mostly thin caliber posttraumatic fluid collection. Please correlate. Mild residual edema also involves the underlying medial patellar structures. The medial meniscus posterior horn shows diminutive and truncated appearance, findings consistent with a fairly extensive moderate to high-grade radial tear (sagittal 18-23). The lateral menisci is intact as are its anterior and posterior root ligament attachments. The anterior and posterior cruciate ligaments are intact. The medial collateral ligament fibers are in continuity, but appear slightly lax, a finding consistent sequela from prior partial MCL injury. The lateral supporting structures of the knee are intact as are the posterolateral and posteromedial corners of the knee. The patellar tendon and distal quadriceps tendon are intact. Medial femorotibial compartment weight-bearing surfaces show mild articular cartilage thinning, with the chondral wear most conspicuous on the peripheral margins of the joint in the region of the aforementioned radial tear mainly involving the medial meniscus posterior horn. Small area of chondral surface irregularity and thin chondral fissure seen at the patellar median ridge. Medial aspect of the femoral trochlea on its inferior portion shows a small a site of full-thickness chondral fissuring (sagittal image 17, axial image 14). There is a small volume of fluid within the suprapatellar recess, but with no sizable knee joint effusion evident. No osseous fracture or sizable bone contusion visualized. Impression: 1. Findings in the proper clinical context compatible with sequela from localized soft tissue contusion at the anteromedial aspect of the knee. This manifests mainly as focal area of soft tissue edema, with elongated mostly thin caliber posttraumatic fluid collection in the subcutaneous fat overlying the medial patellar retinacular structures and extending into the prepatellar and infrapatellar regions. Please correlate. Also with mild residual edema involving the underlying medial patellar retinacular structures. 2. Medial meniscus posterior horn shows diminutive and truncated appearance, findings consistent with a fairly extensive moderate to high-grade radial tear 3. Mild residual changes from prior partial MCL injury, as described above. 4. Mild degenerative changes are evident in the medial femorotibial compartment and patellofemoral compartment. See above description for details. 5. No osseous fracture or sizable bone contusion visualized. . I have personally reviewed the images and the above interpretation and agree with the findings. Segundo Cordova MD IMG MRI ORDERAB LES documented in this encounter Visit Diagnoses Not on filedocumented in this encounter Care Teams Enterprise Data Architect Relationship Specialty Start Date End Date Jean Munoz MD [address] [place] [phone] PCP - General 12/31/08 Manny Rizzo MD [address] [place] [phone] 04/20/10 documented as of this encounter
--- OUTSIDE RECORDS SUMMARY | 2024-06-10 07:31 | XMS_ITS | Encounter Summary ---
Author Organization [facility] Address [address] [place] [address] Care Team Providers Care Hog Confinement System Manager Name Role Phone Jean Munoz MD Primary Care Provider Manny Rizzo MD Unavailable Encounter Details Date Type Department Care Team (Latest Contact Info) Description 03/21/2012 20:11 EDT - 03/21/2012 23:59 EDT Hospital Encounter [facility] - [address] [address] Segundo Cordova MD [address] [place] [phone] Discharge Disposition: Home or Self Care Social [...] Yes 09/19/2010 documented as of this encounter Medications at [...] 11 10/13/2011 10/13/2012 fexofenadine (JUDITH) 180 mg tabletIndications:Season al allergic rhinitis Take 1 Tab by mouth daily. 90 Each 4 12/09/2011 11/24/2012 Flaxseed Oil Oil by [facility].(Non-Drug; Combo Route) route. 04/11/2012 hydrocodone-acetaminophe n (LORTAB;VICODIN) 5-500 mg per tablet Take 1 Tab by mouth every 6 hours as needed for Pain. 40 Tab 0 02/19/2012 03/31/2012 hydroxypropyl methylcellulose (ISOPTO TEARS) 0.5 % ophthalmic solution Place 1 Drop into both eyes 5 times daily. 12/10/2010 10/06/2023 levalbuterol (XOPENEX HFA) 45 mcg/actuation inhaler Inhale 1-2 Puffs as directed every 4 hours as needed for Wheezing. 3 Inhaler 3 11/23/2011 11/24/2012 lorazepam (ATIVAN) 0.5 mg TabIndications:Anxiety Take 1 Tab by mouth every 6 hours as needed (anxiety). 30 Each 0 01/01/2012 04/11/2012 LYRICA 150 mg capsule TAKE 1 CAPSULE BY MOUTH THREE TIMES A DAY 270 Each 1 11/13/2011 05/26/2012 methylphenidate (RITALIN SR; METADATE ER; METHYLIN ER) 20 mg SR tablet Brand only. Take 2 tabs in the morning for narcolepsy. 60 Tab 0 03/08/2012 04/12/2012 methylphenidate (RITALIN;METHYLIN) 10 mg tablet Take one tab in the afternoon for narcolepsy 30 Tab 0 03/08/2012 04/11/2012 mometasone (NASONEX) 50 mcg/actuation nasal sprayIndications:Seasona l allergic rhinitis 2 Sprays by Nasal route daily. 3 Inhaler 4 12/09/2011 11/24/2012 nortriptyline (PAMELOR) 75 mg capsuleIndications:Depre ssion Take 1 Cap by mouth daily. 30 Each 4 12/09/2011 11/24/2012 omeprazole (PRILOSEC) 20 mg capsuleIndications:Insom yesi Take 1 Cap by mouth daily. 90 Cap 4 12/09/2011 11/24/2012 promethazine (PHENERGAN) 25 mg tabletIndications:GERD (gastroesophageal reflux disease) Take 1 Tab by mouth every 6 hours as needed for Nausea. 45 Each 3 11/13/2010 04/11/2012 ropinirole (REQUIP) 2 mg tablet TAKE ONE TABLET BY MOUTH AT BEDTIME 90 Each 3 11/13/2011 11/24/2012 sertraline (ZOLOFT) 100 mg tabletIndications:Depres meño Take 2 Tabs by mouth daily. 180 Tab 5 12/09/2011 11/24/2012 sumatriptan (IMITREX) 50 mg tablet TAKE 1 TABLET BY MOUTH ONCE NEEDED FOR MIGRAINE FOR 1 DOSE 9 Each 2 01/07/2012 05/08/2012 zolpidem (AMBIEN) 10 mg tabletIndications:Insomn ia Take 1 Tab by mouth at bedtime as needed for Sleep. 30 Each 2 03/08/2012 05/26/2012 documented as of this encounter Discharge Disposition Disposition Code Departure Means Destination Home or Self Nursing Home documented in this encounter Plan of Treatment Upcoming Encounters Date Type Department Care Team (Late st Contact Info) Description 06/29/2024 14:15 EDT Office Visit [facility] [address] [place] [address] Jean Munoz MD [address] [place] [phone] documented as of this encounter Visit Diagnoses Not on filedocumented in this encounter Care Teams Hog Confinement System Manager Relationship Specialty Start Date End Date Jean Munoz MD [address] [place] [phone] PCP - General 12/31/08 Manny Rizzo MD [address] [place] [phone] 04/20/10 documented as of this encounter
--- OUTSIDE RECORDS SUMMARY | 2024-06-10 07:31 | XMS_ITS | Encounter Summary ---
Author Organization [facility] Address [address] [place] [address] Care Team Providers Care Tan Room Supervisor Name Role Phone Jean Munoz MD Primary Care Provider Manny Rizzo MD Unavailable Encounter Details Date Type Department Care Team (Late st Contact Info) Description 03/09/2012 Abstract [facility] [address] [place] [address] Jean Munoz MD [address] [place] [phone] Social History Tobacco Use Types [...] Office Visit [facility] [address] [place], [place] [phone] Jean Munoz MD [address] [place] [phone] documented as of this encounter Visit Diagnoses Not on filedocumented in this encounter Care Teams Tan Room Supervisor Relationship Specialty Start Date End Date Jean Munoz MD [address] [place] [phone] PCP - General 12/31/08 Manny Rizzo MD [address] [place] [phone] 04/20/10 documented as of this encounter
--- OUTSIDE RECORDS SUMMARY | 2024-06-10 07:31 | XMS_ITS | Encounter Summary ---
Author Organization [facility] Address [address] [place] [address] Care Team Providers Care Brake Shoe Rebuilder Name Role Phone Jean Munoz MD Primary Care Provider Manny Rizzo MD Unavailable Reason for Visit * Reason Onset Date Comments Shortness of Breath 04/05/2012 Chest Pain 04/05/2012 Encounter Details Date Type Department Care Team (Late st Contact Info) Description 04/05/2012 Telephone [facility] [address] [place] [address] Jean Munoz MD [address] [place] [phone] Shortness of Breath; Chest Pain Social History Tobacco Use Types Packs/Day Years [...] Telephone Encounter - Jean Munoz MD - 04/05/2012 1853 EDT I agree with plan as noted * Telephone Encounter - Vashti Bautista - 04/05/2012 1034 EDT Pt with hx of asthma calling with SOB and chest pressure x24 hrs. Pt is having labored breathing on phone, not able to speak without tight cough. States it feels like someone is sitting on her chest. Advised pt call 911 Pt was not able to. This nurse dispatched 911 and stayed on line until EMT was with pt. VASHTI BAUTISTA RN * Telephone Encounter - Ra Pope - 04/05/2012 1025 EDT Caller: Liset Reason for Call: SOB/Chest Pain Duration of issue: 1 1/2 day Appointment Requested: No Appointment Scheduled: No Advice Requested: Yes-pt would like to know if she should go to ER documented in this encounter Plan of Treatment Upcoming Encounters Date Type Department Care Team (Late st Contact Info) Description 06/29/2024 14:15 EDT Office Visit [facility] Medicine [facility] [address] [place] [address] Jean Munoz MD [address] [place] [phone] documented as of this encounter Visit Diagnoses Not on filedocumented in this encounter Care Teams Brake Shoe Rebuilder Relationship Specialty Start Date End Date Jean Munoz MD [address] [place] [phone] PCP - General 12/31/08 Manny Rizzo MD [address] [place] [phone] 04/20/10 documented as of this encounter
--- OUTSIDE RECORDS SUMMARY | 2024-06-10 07:31 | XMS_ITS | Encounter Summary ---
Author Organization [facility] Address [address] [place] [address] Care Team Providers Care Client Analyst Name Role Phone Jean Munoz MD Primary Care Provider Manny Rizzo MD Unavailable Reason for Visit * Reason Comments Other Encounter Details Date Type Department Care Team (Late st Contact Info) Description 05/08/2012 [facility] [address] [place] [address] Jean Munoz MD [address] [place] [phone] Other Social History Tobacco Use Types [...] 1 DOSE 9 Each 2 05/08/2012 09/16/2012 documented in this encounter Miscellaneous Notes * Telephone Encounter - Vashti Milan - 05/09/2012 0919 EDT Medication: imitrex EMMA:8.16.12 ROV:9.13.12 Pt out of med: unknown Last Refilled:12/23 documented in this encounter Plan of Treatment Upcoming Encounters Date Type Department Care Team (Late st Contact Info) Description 06/29/2024 14:15 EDT Office Visit [facility] [address] [place], [place] [phone] Jean Munoz MD [address] [place] [phone] documented as of this encounter Visit Diagnoses Not on filedocumented in this encounter Discontinued Medications Medication Sig Discontinue Reason Start Date End Da te sumatriptan (IMITREX) 50 mg tablet TAKE 1 TABLET BY MOUTH ONCE NEEDED FOR MIGRAINE FOR 1 DOSE Reorder 01/07/2012 05/08/2012 documented as of this encounter Care Teams Client Analyst Relationship Specialty Start Date End Date Jean Munoz MD [address] [place] [phone] PCP - General 12/31/08 Manny Rizzo MD [address] [place] [phone] 04/20/10 documented as of this encounter
--- OUTSIDE RECORDS SUMMARY | 2024-06-10 07:31 | XMS_ITS | Encounter Summary ---
Author Organization [facility] Address [address] [place] [address] Care Team Providers Care Assistant Chief Engineer Name Role Phone Jean Munoz MD Primary Care Provider Manny Rizzo MD Unavailable Reason for Visit * Reason Onset Date Comments Medications Refill 05/10/2012 Encounter Details Date Type Department Care Team (Late st Contact Info) Description 05/10/2012 Refill [facility] [address] [place], [place] [phone] Jean Munoz MD [address] [place] [phone] Medications Refill Social History Tobacco [...] for Nausea. 30 Tab 1 05/10/2012 01/11/2013 documented in this encounter Miscellaneous Notes * Telephone Encounter - Rukhsana Molina - 05/10/2012 1420 EDT Pt needs refill on her promethazine. Name of Medication promethazine Last Refill Date 11.13.2010 Last Visit Date 04/28/2012 Next Visit Date 05/26/2012 Is patient out of medication? yes documented in this encounter Plan of Treatment Upcoming Encounters Date Type Department Care Team (Late st Contact Info) Description 06/29/2024 14:[address] [facility] Medicine [facility] [address] [place] [address] Jean Munoz MD [address] [place] [phone] documented as of this encounter Visit Diagnoses Not on filedocumented in this encounter Care Teams Assistant Chief Engineer Relationship Specialty Start Date End Date Jean Munoz MD [address] [place] [phone] PCP - General 12/31/08 Manny Rizzo MD [address] [place] [phone] 04/20/10 documented as of this encounter
--- OUTSIDE RECORDS SUMMARY | 2024-06-10 07:31 | XMS_ITS | Encounter Summary ---
Author Organization [facility] Address [address] [place] [address] Care Team Providers Care Supervisor Stave Finishing Name Role Phone Jean Munoz MD Primary Care Provider Manny Rizzo MD Unavailable Reason for Visit * Reason Onset Date Comments Medications Refill 03/08/2012 Encounter Details Date Type Department Care Team (Late st Contact Info) Description 03/08/2012 Refill [facility] [address] [place], [place] [phone] Jean Munoz MD [address] [place] [phone] Medications Refill Social History Tobacco [...] Sleep. 30 Each 2 03/08/2012 05/26/2012 documented in this encounter Miscellaneous Notes * Telephone Encounter - Rukhsana Molina - 03/08/2012 1221 EDT Name of Medication zolpidem Last Refill Date 12/09/11 Last Visit Date 01/22/12 NOS last appt on 03/03 due to a family emergency Next Visit Date 03/30/12 Is patient out of medication? yes documented in this encounter Plan of Treatment Upcoming Encounters Date Type Department Care Team (Late st Contact Info) Description 06/29/2024 14:15 EDT Office Visit [facility] [address] [place], [place] [phone] Jean Munoz MD [address] [place] [phone] documented as of this encounter [...] End Da te zolpidem (AMBIEN) 10 mg tabletIndications:Insomn ia Take 1 Tab by mouth at bedtime as needed for Sleep. Reorder 12/09/2011 03/08/2012 documented as of this encounter Care Teams Supervisor Stave Finishing Relationship Specialty Start Date End Date Jean Munoz MD [address] [place] [phone] PCP - General 12/31/08 Manny Rizzo MD [address] [place] [phone] 04/20/10 documented as of this encounter
[2024-06-10 07:32] LABS: Abs Immature Grans 0.03 10^3/uL (0.0-0.06); Absolute Basophil Count 0.05 10^3/uL (0.0-0.2); Absolute Lymphocyte Count 1.77 10^3/uL (1.2-3.4); Absolute Monocyte Count 0.77 10^3/uL (0.1-0.8); Basophils % 0.5 %; Eosinophils % 2.1 %; HCT 37.5 % (36.0-46.0); HGB 12.3 g/dL (11.2-15.7); Immature Grans % 0.3 %; Lymphocytes % 18.2 %; MCH 31.3 pg (27.0-33.0); MCHC 32.8 % (32.0-36.0); MCV 95 fL (80-95); Monocytes % 7.9 %; Platelet Count 424 10^3/uL (130-400); RBC 3.93 10^6/uL (3.93-5.22); RDW 13.4 % (11.7-14.6); RDW-SD 47.8 fL; WBC 9.72 10^3/uL (4.4-10.8)
--- OUTSIDE RECORDS SUMMARY | 2024-06-10 07:32 | XMS_ITS | Encounter Summary ---
Author Organization [facility] Address [address] [place] [address] Care Team Providers Care Enterprise Project Manager Name Role Phone Jean Munoz MD Primary Care Provider Manny Rizzo MD Unavailable Reason for Visit * Reason Comments Eye Problem JASMINA, diplopia, migra ine. Using Restasis for 6 months. Eyes stil dry, burning, itching, red. Patient having migraines 2-3 per week. Still having horizontal diplopia, not all the time, but when eyes are really dry, if tired, if doing close work. Refresh 5-6X day Encounter Details Date Type Department Care Team (Late st Contact Info) Description 10/13/2011 8:00 EST Office Visit [facility] Ophthalmology - [facility] [address], [place] [address] Giovanni Rodriguez MD [address] [facility], [address] [place] [address] Social History Tobacco Use Types [...] Yes 09/19/2010 documented as of this encounter Patient Instructions * Patient Instructions* Giovanni Rodriguez MD - 10/13/2011 9:28 EST Will start Doxycycline 100 mg by mouth daily. Increase restasis to 4 times a day Try refresh liquigel or genteal gel when dry eyes most troublesome See in 6-8 weeks For possible punctal plugs documented in this encounter Ordered Prescriptions Prescription Sig Dispensed Refills Start Date End Da te doxycycline (VIBRA-TABS) 100 mg tablet Take 1 Tab by mouth daily. 30 Tab 11 10/13/2011 10/13/2012 documented in this encounter Progress Notes * Giovanni Rodriguez MD - 10/13/2011 0924 EST Will start Doxycycline 100 mg by mouth daily. Increase restasis to 4 times a day Try refresh liquigel or genteal gel when dry eyes most troublesome See in 6-8 For possible punctal plugs * Elle Burnett OTA - 10/13/2011 0841 EST . Base Ophthalmology Exam Visual Acuity Right Left Both Dist cc 20/25 20/25 Near cc J1+ J1 Method: Snellen - Linear Correction: Glasses Comments: Near vision taken with loose lens +0.50 over glasses Wearing Rx Sphere Cylinder Phoenix Add Right +1.25 +0.25 087 +1.50 Left +1.25 +0.25 094 +1.50 Type: Bifocal Manifest Refraction Sphere Dist Right -0.25 20/20 -2 Left -0.25 20/25 Stereo Fly: + Circles: 40 seconds Color Right Left Color 10.5/14 07/27 Method: AOPIP Main Ophthalmology Exam Slit Lamp Exam Right Left Lids/Lashes Blepharitis Blepharitis Conjunctiva/Sclera Injection; + stain with l.g. Injection; + stain with l.g. Cornea TBUT 3; + stain TBUT 5; no stain Anterior Chamber Deep and quiet; no cell/flare Deep and quiet; no cell/flare Iris Round and reactive; no TI Round and reactive; no TI Neuro/Psych Oriented x3: Yes Mood/Affect: Normal Cornea examined, all 5 layers. ROS, Medications, Allergies reviewed. Lids, lashes, lacrimal and orbit examined. All normal unless otherwise noted. This note has been dictated and scanned. I am scribing for Giovanni Rodriguez MD while he is personally performing the service. CARSON MOSES 10/13/2011 8:43 IMP: Liset was seen today for eye problem. Diagnoses and associated orders for this visit: Unspecified tear film insufficiency Diplopia Senile nuclear sclerosis Migraine PLAN: documented in this encounter Miscellaneous Notes * Scanned Note-Null - Discharge Door Operator, Scan - 10/15/2011 1159 EST documented in this encounter Plan of Treatment Upcoming Encounters Date Type Department Care Team (Late st Contact Info) Description 06/29/2024 14:15 EDT Office Visit [facility] [address] [place] [address] Jean Munoz MD [address] [place] [phone] documented as of this encounter Visit Diagnoses Diagnosis Unspecified tear film insufficiency- Primary Tear film insufficiency, unspecified Diplopia Senile nuclear sclerosis Migraine Migraine, unspecified, without mention of intractable migraine without mention of status migrainosus Rosacea Screening for osteoporosis- Primary Special screening [...] eye Dist cc 20/25 20/25 Near cc J1+ J1 Correction: Glasses Near vision taken with loose lens +0.50 over glasses Neuro/Psych Oriented x3: Yes Mood/Affect: Normal Color Right eye Left eye AOPIP 10.5/14 11 Stereo Fly: + Circles: 40 seconds Slit Lamp Exam Right eye Left eye Lids/Lashes Blepharitis Blepharitis Conjunctiva/Sclera Injection; + stain with l.g. Injection; + stain with l.g. Cornea TBUT 3; + stain TBUT 5; no stain Anterior Chamber Deep and quiet; no cell/flare D eep and quiet; no cell/flare Iris Round and reactive; no TI Round and reactive; no TI Wearing Rx Sphere Cylinder Phoenix Add Right eye +1.25 +0.25 087 +1.50 Left eye +1.25 +0.25 094 +1.50 Type: Bifocal Manifest Refraction Sphere Dist VA Right eye -0.25 20/20 -2 Left eye -0.25 20/25 Care Teams Enterprise Project Manager Relationship Specialty Start Date End Date Jean Munoz MD [address] [place] [phone] PCP - General 12/31/08 Manny Rizzo MD [address] [place] [phone] 04/20/10 documented as of this encounter
--- OUTSIDE RECORDS SUMMARY | 2024-06-10 07:32 | XMS_ITS | Encounter Summary ---
Author Organization [facility] Address [address] [place] [address] Care Team Providers Care Facilities Painter Name Role Phone Jean Munoz MD Primary Care Provider Manny Rizzo MD Unavailable Reason for Visit * Reason Onset Date Comments Knee Pain 02/02/2012 Encounter Details Date Type Department Care Team (Late st Contact Info) Description 02/02/2012 Telephone [facility] [address] [place] [address] Jean Munoz MD [address] [place] [phone] Knee Pain Social History Tobacco Use Types Packs/Day [...] encounter Miscellaneous Notes * Telephone Encounter - Caro Krueger RN - 02/02/2012 1612 EDT Called patient with instructions to go to [facility] No barriers identified. Verbalizes understanding. * Telephone Encounter - Jean Munoz MD - 02/02/2012 1609 EDT Recommend go to [facility] * Telephone Encounter - Caro Krueger RN - 02/02/2012 1537 EDT Called patient back. She saw on 01/22/12 after a knee injury, and diagnosed with patellabursitis (see notes). Since her appt , she has experienced no improvement at all . Her knee edema and pain is just as it was at appointment when saw her. She is following the instructions given to her By ie wrapping knee , but this makes the rest of her leg swell. She is also taking tylenol, using ice and trying to rest with elevation. Rates pain 8 at rest, worse with movement and weight bearing. Note by states to consider aspiration if not better Please advise on need to go to [facility] or fit into schedule ; no appt at [facility] until next week blacku * Telephone Encounter - Rukhsana Molina - 02/02/2012 1503 EDT Pt is calling because her knee pain has not gotten any better. Dr Munoz told her to call if no better. documented in this encounter Plan of Treatment Upcoming Encounters Date Type Department Care Team (Late st Contact Info) Description 06/29/2024 14:15 EDT Office Visit [facility] [address] [place] [address] Jean Munoz MD [address] [place] [phone] documented as of this encounter Visit Diagnoses Not on filedocumented in this encounter Care Teams Facilities Painter Relationship Specialty Start Date End Date Jean Munoz MD [address] [place] [phone] PCP - General 12/31/08 Manny Rizzo MD [address] [place] [address] 04/20/10 documented as of this encounter
--- OUTSIDE RECORDS SUMMARY | 2024-06-10 07:32 | XMS_ITS | Encounter Summary ---
Author Organization [facility] Address [address] [place] [address] Care Team Providers Care Supervisor Cigar Making Machine Name Role Phone Jean Munoz MD Primary Care Provider Manny Rizzo MD Unavailable Afia Valle MD Unavailable [phone] Jesi Leong MANAGER SEMICONDUCTOR Unavailable SaloJesi shanks MANAGER SEMICONDUCTOR Unavailable [phone] Reason for Visit * Reason Comments Other Encounter Details Date Type Department Care Team (Late st Contact Info) Description 01/07/2012 Refill [facility] Family Medicine [facility] [address] [place], [place] [phone] Jean Munoz MD [address] [place] [phone] Other Social History Tobacco Use [...] 1 DOSE 9 Each 2 01/07/2012 05/08/2012 documented in this encounter Miscellaneous Notes * Telephone Encounter - Jean Munoz MD - 01/07/2012 1327 EDT escript done, please notify patient * Telephone Encounter - Yadira Dunbar RN - 01/07/2012 0963 EDT Routed to provider who saw patient 01/01/12 to review and approve. documented in this encounter Plan of Treatment Upcoming Encounters Date Type Department Care Team (Late st Contact Info) Description 06/29/2024 14:15 EDT Office Visit [facility] [address] [place], [place] [phone] Jean Munoz MD [address] [place] [phone] documented as of this encounter Visit Diagnoses Not on filedocumented in this encounter Discontinued Medications Medication Sig Discontinue Reason Start Date End Da te sumatriptan (IMITREX) 50 mg tablet Take 1 Tab by mouth once as needed for Migraine for 1 dose. Reorder 09/01/2011 01/07/2012 documented as of this encounter Additional Health Concerns Infection Onset Date Last Indicated Resolved Time R/O COVID-19 05/15/2022 05/15/2022 05/20/2022 22:1 6 EDT R/O COVID-19 11/14/2022 11/14/2022 11/14/2022 19:1 6 EST documented as of this encounter Care Teams Supervisor Cigar Making Machine Relationship Specialty Start Date End Date Jean Munoz MD [address] [place] [phone] PCP - General 12/31/08 Manny Rizzo MD [address] [place] [phone] 04/20/10 Afia Valle MD [address] [place] [address] [address] [place] [phone] Care Team Radiation Oncology 07/02/21 Jesi Leong [facility] [address] [place] [phone] Violin Mechanic 12/24/21 09/20/22 Jesi Leong [facility] [address] [place] [phone] Behavioral Health Violin MechanicTool And Die Machinist Care 10/19/22 01/23/24 documented as of this encounter
--- OUTSIDE RECORDS SUMMARY | 2024-06-10 07:32 | XMS_ITS | Encounter Summary ---
Author Organization [facility] Address [address] [place] [address] Care Team Providers Care [employer] Spanish Teacher Name Role Phone Jean Munoz MD Primary Care Provider Manny Rizzo MD Unavailable Reason for Visit * Reason Comments Annual Exam Gynecologic Exam Knee Injury Left Knee Encounter Details Date Type Department Care Team (Latest Contact Info) Description 01/22/2012 13:15 EDT Office Visit [facility] [place] [address] [place], [place] [phone] Jean Munoz MD [address] [place] [phone] Routine general medical examination at a health care facility (Primary Dx); Patellar bursitis; Screening for hyperlipidemia Social History Tobacco Use Types Packs/Day Years [...] Sign Reading Time Taken Comments Blood Pressure 100/84 01/22/2012 1305 EDT Pulse 90 01/22/2012 1305 EDT Temperature 36.8 ??C (98.3 ??F) 01/22/2012 1305 EDT Respiratory Rate - - Oxygen Saturation - - Inhaled Oxygen Concentration - - Weight 95.3 kg (210 lb) 01/22/2012 1305 EDT Height 165.1 cm (5' 5) 01/22/2012 1305 EDT Body Mass Index 34.95 01/22/2012 1305 EDT documented in this encounter Functional Status Cognitive Status Response Date of Assessm ent Because of a physical, menta l, or emotional condition, do you have serious difficulty concentrating, remembering, or making decisions? (5 years old or older) Yes 09/19/2010 documented as of this encounter Patient Instructions * Patient Instructions* Jean Munoz MD - 01/22/2012 13:22 EDT Images from the original note were not included. Please call [phone] to schedule a screening mammogram [facility] Patient Instructions Kneecap Bursitis: After Your Visit Your Care Instructions Bursitis is inflammation of the bursa. A bursa is a small sac of fluid that cushions a joint and helps it move easily. Bursitis of the kneecap is inflammation of the bursa found between the front of the kneecap and the skin. Kneeling for a long time can cause kneecap bursitis, which can develop into an egg-shaped bump on the front of the kneecap. Bursitis usually gets better if you avoid the activity that caused it. If it lasts or gets worse despite home treatment, your doctor may draw fluid from the bursa through a needle. This may relieve your pain and help your doctor know if you have an infection. If so, your doctor will prescribe antibiotics. If you have inflammation only, you may get a corticosteroid shot to reduce swelling and pain. Your doctor may recommend physical therapy and stretching activities. Rarely, surgery is needed todrain or remove the bursa. Follow-up care is a horton part of your treatment and safety. Be sure to make and go to all appointments, and call your doctor if you are having problems. It???s also a good idea to know your test results and keep a list of the medicines you take. How can you care for yourself at home? ?? Put ice or a cold pack on your kneecap for 10 to 20 minutes at a time. Put a thin cloth between the ice and your skin. ?? After 3 days of using ice, you may use heat on your kneecap. You can use a hot water bottle, a heating pad set on low, or a warm, moist towel. ?? Prop up the sore leg on a pillow when you ice it or anytime you sit or lie down during the next 3 days. Try to keep it above the level of your heart. This will help reduce swelling. ?? Rest your knee. Stop any activities that cause pain. Switch to activities that do not stress your knee. ?? Take your medicines exactly as prescribed. Call your doctor if you think you are having a problem with your medicine. ?? If your doctor recommends it, take anti-inflammatory medicines to reduce pain and swelling. These include ibuprofen (Advil, Motrin) and naproxen (Aleve). Read and follow all instructions on the label. ?? To prevent and ease kneecap bursitis during work, play, and daily activities: ?? Wear kneepads when kneeling on hard surfaces. Avoid kneeling for too long at a time. ?? Strengthen and stretch your leg muscles. ?? Avoid deep knee bends. ?? You can slowly return to the activity that caused the pain, but do it with less effort until youcan do it without pain or swelling. Be sure to warm up before and stretch after you do the activity. When should you call for help? Call your doctor now or seek immediate medical care if: ?? You have a fever. ?? You have increased swelling or redness in your knee area. ?? You cannot use your knee, or the pain in your knee gets worse. Watch closely for changes in your health, and be sure to contact your doctor if: ?? You have pain for 2 weeks or longer despite home treatment. Where can you learn more? Go to www.[employer]net/fahc Enter H649 in the search box to learn more about Kneecap Bursitis: After Your Visit. ?? [id number] [employer]. Care instructions adapted under license by [facility], [facility]. This care instruction is for use with your licensed healthcare professional. If you have questions about a medical condition or this instruction, always ask your healthcare professional. [employer] disclaims any warranty or liability for your use of this information. Content Version: 9.2.141238; Last Revised: January 26, 2011 documented in this encounter Progress Notes * Jean Munoz MD - 01/22/2012 1318 EDT Subjective: Patient ID: Liset Viera is an 51 y.o. female. Chief Complaint Patient presents with ??? Annual Exam ??? Gynecologic Exam ??? Knee Injury Left Knee HPI See Health Care Questionnaire for details and ROS. Also left knee injury 2 weks ago Tripped and fell going into store Seen ED, Xray neg for fracture Some improvement, still swelling hitching with walking Doxy for rosacea, eyes Patient Active Problem List Diagnoses ??? Severe [...] ??? Irritable bowel syndrome (IBS) ??? Rosacea Past Medical History Diagnosis Date ??? UTI [...] Laceration 12/26/09 ??? Dizziness 12/26/09 ??? Cataract Past Surgical History Procedure Date ??? Salpingectomy 1982 ectopic ??? Hysterectomy, vaginal menorrhagia ??? Shoulder arthroscopy 10/15 left, with acromioplasty ??? Gastric fundoplication 03/02/07 [facility] ??? Cervical spine surgery 12/31/08 discectomy, fusion C4-7 Dr Dewitt ??? Colonoscopy 07/29/09 repeat ??? Ankle fracture surgery 04/01/10 left ankle [facility] ??? Cyst incision and drainage 09/17/10 left cheek ??? Fine needle aspiration 09/19/10 left cheek Current Outpatient Prescriptions on File Prior to Visit Medication Sig Dispense Refill ??? sumatriptan (IMITREX) 50 mg tablet TAKE 1 TABLET BY MOUTH ONCE NEEDED FOR MIGRAINE FOR 1 DOSE 9 Each 2 ??? methylphenidate (RITALIN;METHYLIN) 10 mg tablet Take one tab in the afternoon for narcolepsy 30Tab 0 ??? methylphenidate (RITALIN SR; METADATE ER; METHYLIN ER) 20 mg SR tablet Brand only. Please take 2 tabs in the morning for narcolepsy. 60 Tab 0 ??? lorazepam (ATIVAN) 0.5 mg Tab Take [...] by mouth daily. 180 Tab 5 ??? zolpidem (AMBIEN) 10 mg tablet Take 1 Tab by mouth at bedtime as needed for Sleep. 30 Each 2 ??? levalbuterol (XOPENEX HFA) 45 [...] (Ketorolac Tromethamine) Hives ??? Motrin (Ibuprofen) Itching Family History Problem Relation Age of Onset ??? Cancer Father esophageal ??? Heart Attack Father ??? Cataract Father ??? Cancer Paternal Aunt breast ??? Migraines Maternal Aunt ??? Stroke Maternal Grandmother ??? Heart Attack Maternal Grandmother ??? Heart Disease Maternal Grandmother ??? Cataract Maternal Grandmother ??? Cancer Paternal Grandmother leukemia ??? Cataract Mother ??? Cataract Maternal Grandfather History Social History ??? Marital Status: Spouse Name: N/A Number of Children: N/A ??? Years of Education: N/A Occupational History ??? None Social History Main Topics ??? Smoking status: Former Smoker -- 0.5 packs/day for 30 years Types: Cigarettes Quit date: 10/14/2010 ??? Smokeless tobacco: Never Used ??? Alcohol Use: No rarely ??? Drug Use: Yes Special: Marijuana no longer using. ??? Sexually Active: Not Currently Other Topics Concern ??? Not on file Social History Narrative from Valente (ETOH)Son Alexi and Daughter KatiaferCurrently [facility] See HPI Objective: BP 100/84 Pulse 90 Temp(Src) 36.8 ??C (98.3 ??F) (Oral) Ht 165.1 cm (65) Wt 95.255 kg (210lb) BMI 34.95 kg/m2 Physical Exam Nursing note and vitals reviewed. Constitutional: She appears well-developed and well-nourished. No distress. HENT: Right Ear: Tympanic membrane and external [...] has no rhonchi. She has no rales. Right breast exhibits no mass and no tenderness. Left breast exhibits no mass and no tenderness. Abdominal: Soft. Bowel sounds are normal. She exhibits no distension and no mass. There is no hepatosplenomegaly. There is no tenderness. Musculoskeletal: She exhibits no edema. Lymphadenopathy: She has no cervical adenopathy. She has no axillary adenopathy. Right: No supraclavicular adenopathy present. Left: No supraclavicular adenopathy present. Neurological: No cranial nerve deficit. Skin: Skin is warm, dry and intact. No rash noted. Psychiatric: She has a normal mood and affect. Assessment: Plan: Liset was seen today for annual exam, gynecologic exam and knee injury. Diagnoses and associated orders for this visit: Routine general medical examination at a [facility] care facility Patellar bursitis Recommend ice, compression, acetaminophen prn Consider aspiration if no improvement in 2 weeks Screening for hyperlipidemia - Lipid Profile (Includes Cholesterol, Triglycerides, HDL, LDL) Colonoscopy 07/29/09 normal, repeat 10 years Mammogram 07/20/08, will schedule Pap smear 12/01/03, s/p hysterectomy, will defer Pap Patient Education Topic: as above Method: Verbal Taught to: Patient Barriers: None Outcomes: Verbalized understanding Return in about 3 months (around 04/23/2012) for SERA. documented in this encounter Plan of Treatment Upcoming Encounters Date Type Department Care Team (Late st Contact Info) Description 06/29/2024 14:15 EDT Office Visit [address] [address] Jean Munoz MD [address] [place] [phone] documented as of this encounter Procedures Procedure Name Priority Date/Time Associated Diagnosis Comments LIPID PROFILE (INCLUDES CHOLESTEROL, TRIGLYCERIDES, HDL, LDL) Routine 01/22/2012 13:43 EDT Screening for hyperlipidemia documented in this encounter Results * LIPID PROFILE (INCLUDES CHOLESTEROL, TRIGLYCERIDES, HDL, LDL) (01/22/2012 13:43 EDT) Cholesterol 184 mg/dl [facility] Comment: Desirable:<200 Borderline High:200-239 High:>gr=008 Triglycerides 122 mg/dl [facility] Comment: Normal:<150 Borderline High:150-199 High:200-499 Very High:>du=565 HDL 46 mg/dl [facility] Comment: Low:<40 Normal:40-60 Desirable: >60 LDL, Calculated 114 mg/dl [facility] Comment: Optimal:<100 Near Optimal:100-129 Borderline High:130-159 High:160-189 Very High:>rg=402 Chol/HDL Ratio 4.0 [facility] Fasting? Unknown [facility] Blood specimen (specimen) 01/22/2012 13:43 EDT 01/22/2012 16:31 EDT Jean Munoz MD CHEMISTRY & BLO OD GAS ORDERABLES Performing Organization Address City/State/[facility] Co de Phone Number [facility] [address] [place] [address] documented in this encounter Visit Diagnoses Diagnosis Routine general medical examination at a health care facility- Primary Patellar bursitis Enthesopathy of knee, unspecified Screening for hyperlipidemia Screening for lipoid disorders Screening for osteoporosis- Primary Special screening for [...] Start Date End Da te predniSONE (DELTASONE) 5 mg tablet Take 4/day for 3 days, then 3day for 3 days, then 2/day for 3 days, then 1/day for 3, days then stop Patient Stopped Taking 01/01/2012 01/22/2012 documented as of this encounter Care Teams Middle [employer] Spanish Teacher Relationship Specialty Start Date End Date Jean Munoz MD [address] [place] [phone] PCP - General 12/31/08 Manny Rizzo MD [address] [place] [phone] 04/20/10 documented as of this encounter
--- OUTSIDE RECORDS SUMMARY | 2024-06-10 07:32 | XMS_ITS | Encounter Summary ---
Author Organization [facility] Address [address] [place] [address] Care Team Providers Care Rehabilitation Supervisor Name Role Phone Jean Munoz MD Primary Care Provider Manny Rizzo MD Unavailable Reason for Visit * Reason Onset Date Comments Medications Refill 03/01/2012 Encounter Details Date Type Department Care Team (Late st Contact Info) Description 03/01/2012 Refill [facility] [address] [place], [place] [phone] Jean Munoz MD [address] [place] [address] Medications Refill Social History Tobacco [...] Miscellaneous Notes * Telephone Encounter - Eliza Rust - 03/02/2012 0959 EDT Called pt back but she didn't have transportation to come to [facility] today to be evaluated. She is scheduled in [place] for evaluation. That office is closer to her home. * Telephone Encounter - Jean Munoz MD - 03/01/2012 1748 EDT Last Rx 02/19/[address] Powers (Ortho) was printed script No refills from us, needs office to discuss (pended script removed) * Telephone Encounter - Luis Rodriguez - 03/01/2012 1713 EDT Knee pain- Left Knee pain all the time worse walking and standing, pt wakes up in pain b/c knee is bent. Pt scheduled to have to have MRI. Pain 7 out 10. Pt takes vicodin 1 tab every 6 hrs . Pt states she takes 4tabs a day. Last refill called in by ortho- Dr Camara on 02/19/2012 for 40 tabs. Requested Prescriptions Pending Prescriptions Disp Refills ??? hydrocodone-acetaminophen (LORTAB;VICODIN) 5-500 mg per tablet 40 Tab 0 Sig: Take 1 Tab by mouth every 6 hours as needed for Pain. * Telephone Encounter - Vanessa Wade - 03/01/2012 1434 EDT Name of Medication vicodin Last Refill Date 02.03.12 Last Visit Date 01.22.12 Next Visit Date 812 Is patient out of medication? yes documented in this encounter Plan of Treatment Upcoming Encounters Date Type Department Care Team (Late st Contact Info) Description 06/29/2024 14:15 EDT Office Visit [facility] [address] [place] [address] Jean Munoz MD [address] [place] [address] documented as of this encounter Visit Diagnoses Not on filedocumented in this encounter Discontinued Medications Medication Sig Discontinue Reason Start Date End Da te hydrocodone-acetaminophen (VICODIN) 5-500 mg per tablet Take 1 Tab by mouth every 4 hours. Reorder 02/03/2012 03/01/2012 documented as of this encounter Care Teams Rehabilitation Supervisor Relationship Specialty Start Date End Date Jean Munoz MD [address] [place] [address] PCP - General 12/31/08 Manny Rizzo MD [address] [place] [address] 04/20/10 documented as of this encounter
--- OUTSIDE RECORDS SUMMARY | 2024-06-10 07:32 | XMS_ITS | Encounter Summary ---
Author Organization [facility] Address [address] [place] [address] Care Team Providers Care Hot Repairman Name Role Phone Jean Munoz MD Primary Care Provider Manny Rizzo MD Unavailable Encounter Details Date Type Department Care Team (Late st Contact Info) Description 12/23/2011 Abstract [facility] [address] [place] [address] Jean Munoz MD [address] [place] [address] Social History Tobacco Use Types [...] EDT Office Visit [facility] [address] [place], [place] [phone] Jean Munoz MD [address] [place] [phone] documented as of this encounter Visit Diagnoses Not on filedocumented in this encounter Care Teams Hot Repairman Relationship Specialty Start Date End Date Jean Munoz MD [address] [place] [phone] PCP - General 12/31/08 Manny Rizzo MD [address] [place] [address] 04/20/10 documented as of this encounter
--- OUTSIDE RECORDS SUMMARY | 2024-06-10 07:32 | XMS_ITS | Encounter Summary ---
Author Organization [facility] Address [address] [place] [address] Care Team Providers Care Tunnel Kiln Firer Name Role Phone Jean Munoz MD Primary Care Provider Manny Rizzo MD Unavailable Encounter Details Date Type Department Care Team (Late st Contact Info) Description 12/23/2011 Abstract [facility] [address] [place] [address] Jean Munoz MD [address] [place] [address] Social History Tobacco Use Types [...] Office Visit [facility] [address] [place], [place] [phone] Jean Munoz MD [address] [place] [phone] documented as of this encounter Visit Diagnoses Not on filedocumented in this encounter Care Teams Tunnel Kiln Firer Relationship Specialty Start Date End Date Jean Munoz MD [address] [place] [phone] PCP - General 12/31/08 Manny Rizzo MD [address] [place] [address] 04/20/10 documented as of this encounter
--- OUTSIDE RECORDS SUMMARY | 2024-06-10 07:32 | XMS_ITS | Encounter Summary ---
Author Organization [facility] Address [address] [place] [address] Care Team Providers Care Manager Behavioral Name Role Phone Jean Munoz MD Primary Care Provider Manny Rizzo MD Unavailable Reason for Visit * Reason Onset Date Comments Medications Refill 08/17/2011 Encounter Details Date Type Department Care Team (Late st Contact Info) Description 08/17/2011 Refill [facility] Sleep Program - [address] [phone] Tiana Bacon [address] [place] [phone] Medications Refill Social History Tobacco Use [...] the morning for narcolepsy. 60 Tab 0 08/17/2011 09/15/2011 methylphenidate (RITALIN;METHYLIN) 10 mg tablet Take one tab in the afternoon for narcolepsy 30 Tab 0 08/17/2011 09/15/2011 methylphenidate (RITALIN;METHYLIN) 10 mg tablet Take one tab in the afternoon for narcolepsy 30 Tab 0 08/17/2011 08/17/2011 methylphenidate (RITALIN SR; METADATE ER; METHYLIN ER) 20 mg SR tablet Brand only. Please take 2 tabs in the morning for narcolepsy. 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 * Telephone Encounter - Duy Booth - 08/17/2011 0842 EST Calling to request a refill of Ritalin SR 20mgs (Brand) and Ritalin 10mgs. Please call her when shecan pick these up. Also, last month another MD had to refill these because her [place] Medicaid insurance didn't accept Dr. Bacon at the time. She may need another MD to fill if this has not been resolved. documented in this encounter Plan of Treatment Upcoming Encounters Date Type Department Care Team (Late st Contact Info) Description 06/29/2024 14:15 EDT Office Visit [facility] [address] [place] [address] Jean Munoz MD [address] [place] [address] documented as of this encounter Visit Diagnoses Not on filedocumented in this encounter Discontinued Medications Medication Sig Discontinue Reason Start Date End Da te methylphenidate (RITALIN SR; METADATE ER; METHYLIN ER) 20 mg SR tablet Brand only. Please take 2 tabs in the morning for narcolepsy. Reorder 07/21/2011 08/17/2011 methylphenidate (RITALIN;METHYLIN) 10 mg tablet Take one tab in the afternoon for narcolepsy Reorder 07/21/2011 08/17/2011 methylphenidate (RITALIN;METHYLIN) 10 mg tablet Take one tab in the afternoon for narcolepsy Reorder 08/17/2011 08/17/2011 methylphenidate (RITALIN SR; METADATE ER; METHYLIN ER) 20 mg SR tablet Brand only. Please take 2 tabs in the morning for narcolepsy. Reorder 08/17/2011 08/17/2011 documented as of this encounter Care Teams Manager Behavioral Relationship Specialty Start Date End Date Jean Munoz MD [address] [place] [phone] PCP - General 12/31/08 Manny Rizzo MD [address] [place] [address] 04/20/10 documented as of this encounter
--- OUTSIDE RECORDS SUMMARY | 2024-06-10 07:32 | XMS_ITS | Encounter Summary ---
Author Organization [facility] Address [address] [place] [address] Care Team Providers Care Tongue Lining Stitcher Name Role Phone Jean Munoz MD Primary Care Provider Manny Rizzo MD Unavailable Encounter Details Date Type Department Care Team (Late st Contact Info) Description 02/23/2012 Abstract [facility] - Deb [facility] [place] [address] Chavo Powers MD Social History Tobacco Use Types Packs/Day [...] EDT Office Visit [facility] [address] [place] [address] Jean Munoz MD [address] [place] [address] documented as of this encounter Visit Diagnoses Not on filedocumented in this encounter Care Teams Tongue Lining Stitcher Relationship Specialty Start Date End Date Jean Munoz MD [address] [place] [address] PCP - General 12/31/08 Manny Rizzo MD [address] [place] [address] 04/20/10 documented as of this encounter
--- OUTSIDE RECORDS SUMMARY | 2024-06-10 07:32 | XMS_ITS | Encounter Summary ---
Author Organization [facility] Address [address] [place] [address] Care Team Providers Care Setter Cold Rolling Machine Name Role Phone Jean Munoz MD Primary Care Provider Manny Rizzo MD Unavailable Reason for Visit * Reason Comments Knee Pain Encounter Details Date Type Department Care Team (Late st Contact Info) Description 02/19/2012 10:[address] [facility] Sports Medicine Program [place] [address] Chavo Powers MD Contusion, knee (Primary Dx); Prepatellar bursitis of left knee Social History Tobacco Use Types Packs/Day Years [...] - - Weight 93.9 kg (207 lb) 02/19/2012 1044 EDT Height 162.6 cm (5' 4) 02/19/2012 1044 EDT Body Mass Index 35.53 02/19/2012 1044 EDT documented in this encounter Functional Status Cognitive Status Response Date of Assessm ent Because of a physical, menta l, or emotional condition, do you have serious difficulty concentrating, remembering, or making decisions? (5 years old or older) Yes 09/19/2010 documented as of this encounter Ordered Prescriptions Prescription Sig Dispensed Refills Start Date End Da te hydrocodone-acetaminophen (LORTAB;VICODIN) 5-500 mg per tablet Take 1 Tab by mouth every 6 hours as needed for Pain. 40 Tab 0 02/19/2012 03/31/2012 documented in this encounter Progress Notes * Chavo Powers - 02/22/2012 0924 EDT Sports [facility] [address] [place], [place] [phone] NEW PATIENT EVALUATION - 02/19/2012 PROBLEM: Left knee injury 01/09/2012. SUBJECTIVE: The patient is a 51-year-old female. She was injured when she tripped on a curve and fell forward, landing directly on the anteromedial aspect of her left knee as well as her hands. She was seen afterward at the emergency room, where radiographs were obtained. She continued to have anteromedial pain, and developed a significant amount of swelling. For this reason, she went back to theemergency room on 02/03/12, during which visit, she had aspirations of both her knee joint effusion and a prepatellar bursal effusion. Approximately 60 mL of fluid was drained from the knee joint and 80 mL from the bursa. The fluid was described as clear and blood tinged. Since that time, the fluid in her knee has, not surprisingly, recurred. She continues to have pain at the anteromedial aspect of her knee, with some spread laterally. She has difficulty flexing her knee and is unable to kneel. She denies any significant crepitus, locking, giving way, radiation or neurologic symptoms. Review of systems, past medical, family and social history are recorded in [facility]. ALLERGIES: She has a history of allergies to IBUPROFEN and TORADOL. OBJECTIVE: The patient is a well-developed, well-nourished female in no acute distress. She is pleasant and cooperative. She is oriented x3. Inspection of the left knee reveals a knee effusion and a prepatellar effusion. Range of motion is 0 to +90, compared to -15 to +120 on the right. Palpation reveals tenderness along the anterior and middle portions of the medial joint line extending into the femoral condyle and less so the tibial plateau. There is very mild tenderness of the lateral joint line and femoral condyle. There is also mild tenderness at the inferior pole of the patella with negative apprehension. The ligaments appear stable to varus, valgus, Micha, anterior and posterior drawers. Cleve's could not be performed because of restricted flexion. Neurovascular status of the leg is grossly intact. DIAGNOSTIC DATA: Radiographs obtained at the initial emergency room visit were reviewed by me with the patient today. At that time, no effusions had developed. No bony abnormalities are seen. ASSESSMENT: Left knee contusion with prepatellar bursitis, and suspected bone contusion involving the femoral condyle and possibly the tibial plateau. She certainly could have an additional internal derangement involving a degenerative meniscal tear or an articular cartilage injury. PLAN: The situation was discussed in detail with the patient. An MRI will be obtained to evaluate the above considerations. She will return for a followup visit afterward. She was counseled that if she continues to have problems with a persistent prepatellar effusion, anaspiration can be performed in the future, although ideally this would be combined with a corticosteroid injection, and compression and immobilization for one to two weeks to try and minimize recurrence. She understands that if there is an internal derangement above and beyond bone bruising, she may need to be referred to one of the knee surgeons for arthroscopic treatment as indicated. In the meantime, she continues to have significant discomfort, especially at night. She was given aprescription for Vicodin 5/500, #40, 1 p.o. q 6 h p.r.n. pain. Electronically Signed by Chavo Powers MD 02/23/2012 10:14 Chavo Powers MD - Chavo Powers MD - [facility] Job ID: SM Doc ID: [id number] Ext Doc ID: [id number] cc: * Chavo Powers - 02/19/2012 1201 EDT This office note has been dictated. documented in this encounter Plan of Treatment Upcoming Encounters Date Type Department Care Team (Late st Contact Info) Description 06/29/2024 14:15 EDT Office Visit [facility] [address] [place] [address] Jean Munoz MD [address] [place] [address] documented as of this encounter Visit Diagnoses Diagnosis Contusion, knee- Primary Contusion of knee Prepatellar bursitis of left knee Prepatellar bursitis Screening for osteoporosis- Primary Special screening for osteoporosis Primary narcolepsy without cataplexy Chronic pain syndrome Chronic low back pain Lumbago Chronic use of opiate for therapeutic purpose Pain medication agreement Encounter for long-term (current) use of other medications Screen for colon cancer Special screening for malignant neoplasms, colon documented in this encounter Care Teams Setter Cold Rolling Machine Relationship Specialty Start Date End Date Jean Munoz MD [address] [place] [phone] PCP - General 12/31/08 Manny Rizzo MD [address] [place] [address] 04/20/10 documented as of this encounter
--- OUTSIDE RECORDS SUMMARY | 2024-06-10 07:32 | XMS_ITS | Encounter Summary ---
Author Organization [facility] Address [address] [place] [address] Care Team Providers Care Metal Weigher Name Role Phone Jean Munoz MD Primary Care Provider Manny Rizzo MD Unavailable Reason for Visit * Reason Comments Dry Eye Pt here to check on dry eyes. Using Restasis 4/4, Refresh Liquigel 4-5/D as needed. FSO 1000 BID. Doxycycline 100 mg daily. Eyes still feel dry. Says no change at all in how they are feeling. Dryness does not wake her at night. No tearing, but alot of burning and itching. Diplopia Still getting alot o f blurring and double vision. Blurring is intermittent. Says as gets tired and eyes get dry, they get hazy. Puts in a drop, helps a little to clear up the fog. Says lids do tend to droop some when gets tired. Encounter Details Date Type Department Care Team (Late st Contact Info) Description 01/14/2012 10:00 EDT Office Visit [facility] Ophthalmology - [address] [phone] Giovanni Rodriguez MD [address] [facility], Level [address] [place] [address] Social History Tobacco Use Types [...] Yes 09/19/2010 documented as of this encounter Progress Notes * Giovanni Rodriguez MD - 01/15/2012 0600 EDT DIVISION OF OPHTHALMOLOGY [facility] January 14, 2012 Jean Munoz MD [address] Munoz: Our mutual patient was seen again today. She continues to be followed for dry eyes. I have not beenterribly successful in minimizing her symptomatology from the dry eyes. Specifically, she is now using artificial tears several times a day. In addition, she is on Restasis 4 times a day. Finally, she is taking omega-3s by mouth. In addition, she is on doxycycline 100 mg a day. I have gone ahead and recommended that we carry out placing punctal plugs, and silicone plugs were placed in the lower lid puncta in each eye. I will see her in about 6 weeks, and she will continue with her current medical regimen. Hopefully we can minimize her symptomatology. Again, I will see her in about 6 weeks and recheck her dry eyes.Because of the dry eyes and dry mouth, I did order Sjogren's and a thyroid cascade as well as an HERMES. I can review those results when she comes in in 6 weeks as well. Sincerely, Electronically Signed by Giovanni Rodriguez MD 01/17/2012 20:00 Chitra Jeffrey MD - Giovanni Rodriguez MD - [facility] Job ID: SM Doc ID: [id number] Ext Doc ID: [id number] cc: Jean Munoz MD * Giovanni Rodriguez MD - 01/14/2012 1138 EDT This note has been dictated and scanned. I saw and examined the patient with the scribe. I agree with the findings documented in the scribes note. . Base Ophthalmology Exam Visual Acuity Right Left Both Dist cc 20/20 20/20 Method: Snellen - Linear Correction: Glasses Comments: VA each eye with last MR of -0.25 sph each eye is 20/100 blurry in each eye. WS Main Ophthalmology Exam External Exam Right Left External Rosacea Rosacea Slit Lamp Exam Right Left Conjunctiva/Sclera Injection, mild Injection, mild Anterior Chamber Deep and quiet, no F/C Deep and quiet, no F/C Iris Round and reactive, no TI Round and reactive, no TI Neuro/Psych Oriented x3: Yes Mood/Affect: Normal Cornea examined, all 5 layers. ROS, Medications, Allergies reviewed. CVF, Pupil check and EOM's rechecked to include versions & ductions. Lids, lashes, lacrimal and orbit examined. All normal unless otherwise noted. This note has been dictated and scanned. IMP: Liset was seen today for dry eye and diplopia. Diagnoses and associated orders for this visit: Dry eyes, bilateral - Anti Nuclear Antibody; Future - SSA/SSB; Future - Thyroid [place]; Future punctal plugs each lower lid right 0.5 / left 0.8 silicone plugs without complications PLAN: documented in this encounter Miscellaneous Notes * Scanned Note-Null - [employer], SCAN 2 - 01/15/2012 0919 EDT documented in this encounter Plan of Treatment Upcoming Encounters Date Type Department Care Team (Late st Contact Info) Description 06/29/2024 14:15 EDT Office Visit [address] [address] Jean Munoz MD [address] [place] [address] documented as of this encounter Results * THYROID CASCADE (01/14/2012 13:18 EDT) TSH 1.84 0.35 - 5.00 uIU/ml [facility] Comment: TSH cascade is not recommended for patients in which pituitary or hypothalamic disorders are suspected. Blood specimen (specimen) 01/14/2012 13:18 EDT 01/14/2012 14:08 EDT Giovanni Rodriguez MD CHEMISTRY & BLOOD G ORDERABLES Performing Organization Address [facility] Co de Phone Number [facility] [address] [place] [address] * SSA/SSB (01/14/2012 13:18 EDT) SS A/Ro Ab, IgG, S <0.2 <1.0 (Negative) U [facility] SS B/La Ab, IgG, S <0.2 <1.0 (Negative) U [facility] Comment: Performed by: [facility], [address], [place] [address], Piano Player: Liset iDck, Ph.D. Blood specimen (specimen) 01/14/2012 13:18 EDT 01/14/2012 14:08 EDT Giovanni Rodriguez MD CHEMISTRY & BLOOD G ORDERABLES Performing Organization Address [facility] Co de Phone Number [facility] [address] [place] [address] * ANTI NUCLEAR ANTIBODY (01/14/2012 13:18 EDT) Anti Nuclear Ab <40 0 - 40 Dils [facility] Blood specimen (specimen) 01/14/2012 13:18 EDT 01/14/2012 14:08 EDT Giovanni Rodriguez MD IMMUNOLOGY AND SERO LOGY ORDERABLES [facility] [address] [place] [address] documented in this encounter Visit Diagnoses Diagnosis Dry eyes, bilateral- Primary Tear film insufficiency, unspecified Screening for osteoporosis- [...] Linear) Right eye Left eye Dist cc 20/20 20/20 Correction: Glasses VA each eye with last MR of -0.25 sph each eye is 20/100 blurry in each eye. WS Neuro/Psych Oriented x3: Yes Mood/Affect: Normal External Exam Right eye Left eye External Rosacea Rosacea Slit Lamp Exam Right eye Left eye Conjunctiva/Sclera Injection, mild Injection, mi ld Anterior Chamber Deep and quiet, no F/C Deep and quiet, no F/C Iris Round and reactive, no TI Round and reactive, no TI Care Teams Metal Weigher Relationship Specialty Start Date End Date Jean Munoz MD [address] [place] [phone] PCP - General 12/31/08 Manny Rizzo MD [address] [place] [phone] 04/20/10 documented as of this encounter
--- OUTSIDE RECORDS SUMMARY | 2024-06-10 07:32 | XMS_ITS | Encounter Summary ---
Author Organization [facility] Address [address] [place] [address] Care Team Providers Care Tire Repair Mechanic Name Role Phone Jean Munoz MD Primary Care Provider Manny Rizzo MD Unavailable Reason for Visit * Reason Onset Date Comments Medications Refill 10/14/2011 Encounter Details Date Type Department Care Team (Late st Contact Info) Description 10/14/2011 Refill [facility] Sleep Program - [address] [phone] Tiana Bacon [address] [place] [phone] Medications Refill Social History Tobacco Use [...] the morning for narcolepsy. 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 * Telephone Encounter - Duy Booth - 10/14/2011 1031 EST Calling to request a refill of Ritalin XR 20mgs and Ritalin 10mgs. Please call her when she can pick these up. documented in this encounter Plan of Treatment Upcoming Encounters Date Type Department Care Team (Late st Contact Info) Description 06/29/2024 14:15 EDT Office Visit [facility] Medicine [facility] [address] [place] [address] Jean Munoz MD [address] [place] [phone] documented as of this encounter Visit Diagnoses Not on filedocumented in this encounter Discontinued Medications Medication Sig Discontinue Reason Start Date End Da te methylphenidate (RITALIN;METHYLIN) 10 mg tablet Take one tab in the afternoon for narcolepsy Reorder 09/15/2011 10/14/2011 methylphenidate (RITALIN SR; METADATE ER; METHYLIN ER) 20 mg SR tablet Brand only. Please take 2 tabs in the morning for narcolepsy. Reorder 09/15/2011 10/14/2011 documented as of this encounter Care Teams Tire Repair Mechanic Relationship Specialty Start Date End Date Jean Munoz MD [address] [place] [phone] PCP - General 12/31/08 Manny Rizzo MD [address] [place] [phone] 04/20/10 documented as of this encounter
--- OUTSIDE RECORDS SUMMARY | 2024-06-10 07:32 | XMS_ITS | Encounter Summary ---
Author Organization [facility] Address [address] [place] [address] Care Team Providers Care Community Action Worker Name Role Phone Jean Munoz MD Primary Care Provider Manny Rizzo MD Unavailable Reason for Visit * Reason Onset Date Comments Medications Refill 11/12/2011 Encounter Details Date Type Department Care Team (Late st Contact Info) Description 11/12/2011 Refill [facility] Sleep Program - [address] [phone] Tiana Bacon [address] [place] [phone] Medications Refill Social History Tobacco Use [...] the morning for narcolepsy. 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 * Telephone Encounter - Bambi Zhou - 11/12/2011 0921 EST Patient needs refill on Ritalin Sr 20mg and Ritalin 10mg - patient took last dose. Please call whenscript is ready. documented in this encounter Plan of Treatment Upcoming Encounters Date Type Department Care Team (Late st Contact Info) Description 06/29/2024 14:15 EDT Office Visit [facility] [place] [address] [place], [place] [id number] Jean Munoz MD [address] [place] [phone] documented as of this encounter Visit Diagnoses Not on filedocumented in this encounter Discontinued Medications Medication Sig Discontinue Reason Start Date End Da te methylphenidate (RITALIN;METHYLIN) 10 mg tablet Take one tab in the afternoon for narcolepsy Reorder 10/14/2011 11/12/2011 methylphenidate (RITALIN SR; METADATE ER; METHYLIN ER) 20 mg SR tablet Brand only. Please take 2 tabs in the morning for narcolepsy. Reorder 10/14/2011 11/12/2011 documented as of this encounter Care Teams Community Action Worker Relationship Specialty Start Date End Date Jean Munoz MD [address] [place] [phone] PCP - General 12/31/08 Manny Rizzo MD [address] [place] [phone] 04/20/10 documented as of this encounter
--- OUTSIDE RECORDS SUMMARY | 2024-06-10 07:32 | XMS_ITS | Encounter Summary ---
Author Organization [facility] Address [address] [place] [address] Care Team Providers Care Stone Layer Name Role Phone Jean Munoz MD Primary Care Provider Manny Rizzo MD Unavailable Reason for Visit * Reason Comments Follow-up Encounter Details Date Type Department Care Team (Late st Contact Info) Description 09/30/2011 11:40 EST Office Visit [facility] Sleep Program - [address] [phone] Tiana Bacon [address] [place] [phone] Narcolepsy without cataplexy (Primary Dx); Hypersomnia Social History Tobacco Use Types Packs/Day Years [...] Reading Time Taken Comments Blood Pressure 112/68 09/30/2011 1133 EST Pulse 77 09/30/2011 1133 EST Temperature - - Respiratory Rate 20 09/30/2011 1133 EST Oxygen Saturation 97% 09/30/2011 1133 EST Inhaled Oxygen Concentration - - Weight 96.6 kg (213 lb) 09/30/2011 1133 EST Height 162.6 cm (5' 4) 09/30/2011 1133 EST Body Mass Index 36.56 09/30/2011 1133 EST documented in this encounter Functional Status Cognitive Status Response Date of Assessm ent Because of a physical, menta l, or emotional condition, do you have serious difficulty concentrating, remembering, or making decisions? (5 years old or older) Yes 09/19/2010 documented as of this encounter Progress Notes * Tiana Bacon MD - 09/30/2011 1143 EST 50 year old W with a history of narcolepsy without cataplexy, who was seen on 2010 for persistent fatigue presents for follow up after a sleep study on 08/07/2011 which did not show sleep apnea. She states that she has bad days where she is sleepy all day. This past Wednesday--she slept all day. She would be awake for 10-20 minutes and then would sleep for 3-4 hours at a time. She states hat she was getting good sleep during the week. There were no changes in her medications and she did notmiss any doses. She takes several medications with sedating side effects-- but these are taken before bedtime. She states that they are mostly taken as needed. She states that this sleepiness set in during the past 6 mos. She has been wondering if there is a seasonal component to this. She is currently not working. ROS: fatigue as stated above in HPI, denies CP, SOB, depression may be worse during winter months. Current Outpatient Prescriptions Medication Sig Dispense Refill ??? methylphenidate (RITALIN;METHYLIN) 10 mg tablet Take one tab in the afternoon for narcolepsy 30Tab 0 ??? methylphenidate (RITALIN SR; METADATE ER; METHYLIN ER) 20 mg SR tablet Brand only. Please take 2 tabs in the morning for narcolepsy. 60 Tab 0 ??? omeprazole (PRILOSEC) 20 mg capsule Take 1 Cap by mouth daily. 90 Each 0 ??? nortriptyline (PAMELOR) 75 mg capsule Take 1 Cap by mouth daily. 30 Each 3 ??? zolpidem (AMBIEN) 10 mg tablet Take 1 Tab by mouth at bedtime as needed for Sleep. 30 Each 2 ??? pregabalin (LYRICA) 150 mg capsule TAKE ONE CAPSULE BY MOUTH THREE TIMES A DAY 270 Each 1 ??? baclofen (LIORESAL) 10 mg tablet Take 0.5-1 Tabs by mouth 3 times daily as needed. 90 Tab 3 ??? fexofenadine (JUDITH) 180 mg tablet Take 1 Tab by mouth daily. 90 Each 2 ??? CYCLOSPORINE (RESTASIS OPHT) Apply to eye. ??? Flaxseed Oil Oil by Misc.(Non-Drug; Combo Route) route. ??? hydroxypropyl methylcellulose (ISOPTO TEARS) 0.5 % ophthalmic solution Place 1 Drop into both eyes 5 times daily. ??? fluticasone-salmeterol (ADVAIR DISKUS) 500-50 mcg/dose diskus inhaler Inhale 1 Puff as directed2 times daily. 3 Each 3 ??? levalbuterol (XOPENEX HFA) 45 mcg/Actuation inhaler Inhale 1-2 Puffs as directed every 4 hours as needed for Wheezing. 3 Inhaler 3 ??? mometasone (NASONEX) 50 mcg/Actuation nasal spray 2 Sprays by Nasal route daily. 3 Inhaler 3 ??? promethazine (PHENERGAN) 25 mg tablet Take 1 Tab by mouth every 6 hours as needed for Nausea. 45 Each 3 ??? ropinirole (REQUIP) 2 mg tablet Take 1 Tab by mouth at bedtime. 90 Each 3 ??? sertraline (ZOLOFT) 100 mg tablet Take 1.5 Tabs by mouth daily. 135 Tab 3 ??? docusate sodium (COLACE) 100 mg capsule Take 1 Cap by mouth 2 times daily as needed for Constipation. Exam Filed Vitals: 09/30/11 1133 BP: 112/68 Pulse: 77 Resp: 20 Height: 162.6 cm (64) Weight: 96.616 kg (213 lb) SpO2: 97% Heart: RRR normal S1, S2 Lungs: CTAB A/P: 50 year old W with narcolepsy without cataplexy presents for evaluation after recent diagnostic sleep study which did not show KATJA. With regards to her sleepiness, I would wonder that there is aseasonal component with her depression that may be causing it. She is currently on sertraline 100 mg per day. She may need adjustment or change in medications and we will refer her to the psychopharmacologic clinic to see if there is any adjustment that can be made. She may benefit from a medication such as Wellbutrin or Prozac that is more activating . She is currently on a pretty good dose ofstimulant medication for her narcolepsy and I am reluctant to change that. She was encouraged to keep set bedtime and wake time, and to get some activity everyday. She shouldalso try to expose herself to light first thing in the morning. We will follow up with her in 6 months to see if there is any change. documented in this encounter Plan of Treatment Upcoming Encounters Date Type Department Care Team (Late st Contact Info) Description 06/29/2024 14:15 EDT Office Visit [address] [address] Jean Munoz MD [address] [place] [phone] documented as of this encounter Visit Diagnoses Diagnosis Narcolepsy without cataplexy(347.00)- Primary Narcolepsy without cataplexy Hypersomnia Hypersomnia, unspecified Screening for osteoporosis- Primary Special screening for osteoporosis Primary narcolepsy without cataplexy Chronic pain syndrome Chronic low back pain Lumbago Chronic use of opiate for therapeutic purpose Pain medication agreement Encounter for long-term (current) use of other medications Screen for colon cancer Special screening for malignant neoplasms, colon documented in this encounter Care Teams Stone Layer Relationship Specialty Start Date End Date Jean Munoz MD [address] [place] [phone] PCP - General 12/31/08 Manny Rizzo MD [address] [place] [phone] 04/20/10 documented as of this encounter
--- OUTSIDE RECORDS SUMMARY | 2024-06-10 07:32 | XMS_ITS | Encounter Summary ---
Author Organization [facility] Address [address] [place] [address] Care Team Providers Care Printing Estimator Name Role Phone Jean Munoz MD Primary Care Provider Manny Rizzo MD Unavailable Reason for Visit * Reason Onset Date Comments Results 01/25/2012 Encounter Details Date Type Department Care Team (Late st Contact Info) Description 01/25/2012 Telephone [facility] [address] [place] [address] Jean Munoz MD [address] [place] [phone] Results Social History Tobacco Use Types [...] encounter Miscellaneous Notes * Telephone Encounter - Feli Preston - 01/25/2012 1556 EDT Enter/edit results documented in this encounter Plan of Treatment Upcoming Encounters Date Type Department Care Team (Late st Contact Info) Description 06/29/2024 14:15 EDT Office Visit [facility] [address] [place] [address] Jean Munoz MD [address] [place] [phone] documented as of this encounter Procedures Procedure Name Priority Date/Time Associated Diagnosis Comments COLONOSCOPY PROCEDURE Routine 07/29/2009 documented in this encounter Results * COLONOSCOPY (07/29/2009) Colonoscopy POINT OF CARE Colonoscopy, External POINT OF CARE Anatomical Region Laterality Modality Endoscopy Historical Provider GI PROCEDURE [place] documented in this encounter Visit Diagnoses Not on filedocumented in this encounter Care Teams Printing Estimator Relationship Specialty Start Date End Date Jean Munoz MD [address] [place] [phone] PCP - General 12/31/08 Manny Rizzo MD [address] [place] [phone] 04/20/10 documented as of this encounter
--- OUTSIDE RECORDS SUMMARY | 2024-06-10 07:32 | XMS_ITS | Encounter Summary ---
Author Organization [facility] Address [address] [place] [address] Care Team Providers Care Helmet Hat Sweatband Puncher Name Role Phone Jean Munoz MD Primary Care Provider Manny Rizzo MD Unavailable Reason for Visit * Reason Comments Fall tripped on curb ,fel l onto L knee and hands Encounter Details Date Type Department Care Team (Late st Contact Info) Description 01/09/2012 18:56 EDT - 01/09/2012 21:05 EDT Emergency [facility] Emergency Department - [address] [phone] Boyd Edouard, PA-C [address] [facility], [address] [place] [phone] Emergency, MD Ismael Contusion of left knee Discharge Disposition: Home or [...] Sign Reading Time Taken Comments Blood Pressure 127/77 01/09/20120 EDT Pulse - - Temperature 36.4 ??C (97.5 ??F) 01/09/2012 1859 EDT Respiratory Rate 16 01/09/20120 EDT Oxygen Saturation 98% 01/09/2012 190 EDT Inhaled Oxygen Concentration - - Weight 90.7 kg (200 lb) 01/09/2012 190 EDT Height 162.6 cm (5' 4) 01/09/2012 190 EDT Body Mass Index 34.33 01/09/2012 190 EDT documented in this encounter Functional Status Cognitive Status Response Date of Assessm ent Because of a physical, menta l, or emotional condition, do you have serious difficulty concentrating, remembering, or making decisions? (5 years old or older) Yes 09/19/2010 documented as of this encounter Discharge Instructions * Discharge Instructions* Boyd Edouard PA - 01/09/2012 20:52 EDT Wear DALE wrap for 3-5 days Keep foot elevated Increase activity as tolerated Apply ice every 2-3 hours for 20 minutes; do not apply ice directly to skin Take Vicodin for severe pain; do not drive or take Tylenol while taking this medication Gentle range of motion exercises * Attachments The following attachments cannot be sent through Care Everywhere. * BRUISES: AFTER YOUR VISIT (UZBEK) documented in this encounter Medications at Time [...] 4 12/09/2011 11/24/[address] Oil Oil by [facility].(Non-Drug; Combo Route) route. 04/11/2012 hydroxypropyl methylcellulose (ISOPTO TEARS) 0.5 % ophthalmic [...] the morning for narcolepsy. 60 Tab 0 01/06/2012 02/09/2012 methylphenidate (RITALIN;METHYLIN) 10 mg tablet Take one tab in the afternoon for narcolepsy 30 Tab 0 01/06/2012 02/09/2012 mometasone (NASONEX) 50 mcg/actuation nasal sprayIndications:Seasona l allergic rhinitis 2 Sprays by Nasal route daily. 3 Inhaler 4 12/09/2011 11/24/2012 nortriptyline (PAMELOR) 75 mg capsuleIndications:Depre ssion Take 1 Cap by mouth daily. 30 Each 4 12/09/2011 11/24/2012 omeprazole (PRILOSEC) 20 mg capsuleIndications:Insom yesi Take 1 Cap by mouth daily. 90 Cap 4 12/09/2011 11/24/2012 predniSONE (DELTASONE) 5 mg tablet Take 4/day for 3 days, then 3day for 3 days, then 2/day for 3 days, then 1/day for 3, days then stop 30 Each 0 01/01/2012 01/22/2012 promethazine (PHENERGAN) 25 mg tabletIndications:GERD (gastroesophageal reflux [...] as needed for Sleep. 30 Each 2 12/09/2011 03/08/2012 documented as of this encounter Discharge Disposition Disposition Code Departure Means Destination Home or Self Care documented in this encounter ED Notes * Magdalena Lind RN - 01/09/20122102 EDT Pt home with friend via w/c * Boyd Edouard PA - 01/09/20121955 EDT DOS: 01/09/2012 Chief Complaint Patient presents with ??? Fall tripped on curb ,fell onto L knee and hands The patient is a 51 y.o. female who presents today with Fall HPI Comments: 51-year-old female presents with complaints of left knee pain. Patient states she hada mechanical fall and tripped, landing on her left knee. Patient notes anterior left knee swelling and pain that is worse with movement. She notes left knee pain with weightbearing. She denies numbness or tingling. Patient had some small bruises to her hands, but denies any wrist pain, head pain orother injuries. The history is provided by the patient. Fall She landed on concrete. There was no blood loss. The point of impact was the left knee. The pain isat a severity of 9/10. The pain is severe. Pertinent negatives include no numbness and no tingling. Review of Systems Musculoskeletal: Positive for joint swelling and gait problem. Skin: Positive for color change and wound (abrasion). Neurological: Negative for tingling, weakness and numbness. All other systems reviewed and are negative. [...] fusion C4-7 Dr Dewitt ??? Colonoscopy 07/29/09 ??? Ankle fracture surgery 04/01/10 left ankle [facility] ??? Cyst incision and drainage [...] ??? Cataract Mother ??? Cataract Maternal Grandfather Vital Signs Temp: 36.4 ??C (97.5 ??F) Temp src: Tympanic Heart Rate: 70 BPM Resp: 16 SpO2: 98 % SpCO: 8 % BP: 127/77 mmHg O2 Device: None (Room air) Physical Exam Nursing note and vitals reviewed. Constitutional: She is oriented to person, place, and time. She appears well- developed and well-nourished. No distress. HENT: Head: Atraumatic. Neck: Normal range of motion. Cardiovascular: Normal rate and intact distal pulses. Pulmonary/Chest: Effort normal. No respiratory distress. Musculoskeletal: Right wrist: She exhibits normal range of motion, no tenderness and no bony tenderness. Left wrist: She exhibits normal range of motion, no tenderness and no bony tenderness. Left knee: She exhibits decreased range of motion, swelling and bony tenderness (patella). She exhibits no ecchymosis and no deformity. LCL laxity: unable to accurately assess due to knee pain. MCL laxity: unable to accurately assess due to knee pain. tenderness found. Medial joint line, MCL and patellar tendon (no palpable defect) tenderness noted. No lateral joint line and no LCL tenderness noted. Left upper leg: Normal. Left lower leg: Normal. Pt can straight leg raise Neurological: She is alert and oriented to person, place, and time. She has normal strength. No sensory deficit. Skin: Skin is warm and dry. No erythema. Psychiatric: She has a normal mood and affect. Her behavior is normal. Radiology orders: KNEE 4 OR MORE VIEWS No evidence of fracture KNEE 4 OR MORE VIEWS Final result not shown here.: Procedures ED Course: A medical screening exam was performed. Patient presents with anterior knee pain after falling on anterior aspect of her knee. This was a mechanical fall. She has diffuse swelling and no evidence of fracture on x-ray. She was given an Dale wrap. She declines crutches. Advised PCP follow up if symptoms continue. Patient is able to straight leg raise. Given starter pack of Vicodin. Disposition: Discharged The patient's pain was managed to an adequate level weighing risk vs. benefit of further medications. Upon departure from the Emergency Department, the patient's pain was 6 on a zero to ten scale. Condition at departure from the Emergency Department: Improved Discharge Prescriptions New Prescriptions No Discharge Prescriptions for this patient MDM Number of Diagnoses or Management Options Contusion of left knee: Diagnosis management comments: 3 Amount and/or Complexity of Data Reviewed Tests in the radiology section of CPT??: ordered and reviewed Review and summarize past medical records: yes Independent visualization of images, tracings, or specimens: yes 1. Contusion of left knee PCP: Jean Munoz MD Ray Keller was available for supervision. 01/09/2012 22:19 * Magdalena Lind RN - 01/09/2012 1950 EDT Pt to room via w/c , left knee has superficial abrasion and mod swelling with bruising, ice to knee documented in this encounter Miscellaneous Notes * Scanned Note-Null - STOCK FEEDER, SCAN 2 - 01/13/2012 1431 EDT documented in this encounter Plan of Treatment Upcoming Encounters Date Type Department Care Team (Late st Contact Info) Description 06/29/2024 14:15 EDT Office Visit [facility] [address] [place] [address] Jean Munoz MD [address] [place] [phone] documented as of this encounter Procedures Procedure Name Priority Date/Time Associated Diagnosis Comments KNEE 4 OR MORE VIEWS STAT 01/09/2012 20:13 EDT documented in this encounter Results * KNEE 4 OR MORE VIEWS (01/09/2012 20:13 EDT) Anatomical Region Laterality Modality Other 01/09/2012 20:1 3 EDT 01/09/2012 20:40 EDT Narrative 01/09/2012 20:40 EDT KNEE 4 OR MORE VIEWS ??Jan 09, 2012 08:13:00 PM Signs and Symptoms/Comments: ?? FALL, patellar pain ?? Impression: 1. Soft tissue swelling medial knee. 2. No fracture identified. Description: 5 views of the left knee with minimal medial compartment osteophytes. No joint effusion. Alignment normal. Comparison is made to November 04, 2004. Procedure Note 01/09/2012 KNEE 4 OR MORE VIEWS Jan 09, 2012 08:13:00 PM Signs and Symptoms/Comments: FALL, patellar pain Impression: 1. Soft tissue swelling medial knee. 2. No fracture identified. Description: 5 views of the left knee with minimal medial compartment osteophytes. No joint effusion. Alignment normal. Comparison is made to November 04, 2004. Boyd Edouard PA-C IMG DIAGNOSTIC IMAGI NG ORDERABLES documented in this encounter Visit Diagnoses Diagnosis Contusion of left knee Contusion of knee Screening for osteoporosis- Primary Special screening for [...] MAR Action Action Date Dose Rate Site Hydrocodone w APAP 5-500 mg Tab??STARTER PACK 1 Package, oral, NOW X1, 1 dose, On 01/09/12 at 2115, STAT Given 01/09/2012 21:03 EDT 1 Package hydrocodone-acetaminophen (LORTAB;VICODIN) 5-500 mg per tablet 2 Tab 2 Tablet, oral, NOW X1, 1 dose, On 01/09/12 at 2014, STAT Given 01/09/2012 20:00 EDT 2 Tablets documented in this encounter Active and Recently Administered Medications Times are shown in EDT. Scheduled Medication Order 01/07/2012 01/08/2012 01/09/2012 Hydrocodone w APAP 5-500 mg Tab??STARTER PACK (COMPLETED) 1 Package, oral, NOW X1, 1 dose, On 01/09/12 at 2115, STAT 2103 (Given - Provid er: Magdalena Lind RN) hydrocodone-acetaminophen (LORTAB;VICODIN) 5-500 mg per tablet 2 Tab (COMPLETED) 2 Tablet, oral, NOW X1, 1 dose, On 01/09/12 at 2015, STAT 2000 (Given - Provid er: Magdalena Lind RN) documented in this encounter Care Teams Helmet Hat Sweatband Puncher Relationship Specialty Start Date End Date Jean Munzo MD [address] [place] [phone] PCP - General 12/31/08 Manny Rizzo MD [address] [place] [phone] 04/20/10 documented as of this encounter
--- OUTSIDE RECORDS SUMMARY | 2024-06-10 07:32 | XMS_ITS | Encounter Summary ---
Author Organization [facility] Address [address] [place] [address] Care Team Providers Care Credit And Collections Representative Name Role Phone Jean Munoz MD Primary Care Provider Manny Rizzo MD Unavailable Reason for Visit * Reason Onset Date Comments Knee Injury 03/01/2012 Left knee injury , DOI: 01/09/12 Encounter Details Date Type Department Care Team (Late st Contact Info) Description 03/01/2012 Orders Only [facility] Sports Medicine Program - [address] [address] Segundo Cordova MD [address] [place] [phone] Knee pain (Primary Dx) Social History Tobacco Use [...] as of this encounter Progress Notes * Loreta Matias - 03/01/2012 1416 EDT Patient called to inquire about her MRI date and time. I reviewed the patient's chart and discovered that the MRI Dr. Powers had wanted to order in his last dictation, had not been placed. Dr. Powers is off for the rest of the summer. I have asked Dr. Cordova if he was willing to order the MRI on his behalf. Dr. Cordova said he was. I will pend the order for him to sign. The patient also asked if she could have a refill on the vicodin that Dr. Powers had prescribed for her. Dr. Cordvoa does not give pain medication pre- operatively. [facility] her [facility]. Loreta Matias documented in this encounter Plan of Treatment Upcoming Encounters Date Type Department Care Team (Late st Contact Info) Description 06/29/2024 14:15 EDT Office Visit [address] [address] Jean Munoz MD [address] [place] [phone] documented as of this encounter Visit Diagnoses Diagnosis Knee pain- Primary Pain in joint, lower leg Screening for osteoporosis- Primary Special screening for osteoporosis Primary narcolepsy without cataplexy Chronic pain syndrome Chronic low back pain Lumbago Chronic use of opiate for therapeutic purpose Pain medication agreement Encounter for long-term (current) use of other medications Screen for colon cancer Special screening for malignant neoplasms, colon documented in this encounter Care Teams Credit And Collections Representative Relationship Specialty Start Date End Date Jean Munoz MD [address] [place] [phone] PCP - General 12/31/08 Manny Rizzo MD [address] [place] [phone] 04/20/10 documented as of this encounter
--- OUTSIDE RECORDS SUMMARY | 2024-06-10 07:32 | XMS_ITS | Encounter Summary ---
Author Organization [facility] Address [address] [place] [address] Care Team Providers Care Receiving Associate Store Name Role Phone Jean Munoz MD Primary Care Provider Manny Rizzo MD Unavailable Reason for Visit * Reason Onset Date Comments Medications Refill 09/15/2011 Encounter Details Date Type Department Care Team (Late st Contact Info) Description 09/15/2011 Refill [facility] - [address] [id number] Tiana Bacon [address] [place] [phone] Medications Refill Social History Tobacco Use [...] the morning for narcolepsy. 60 Tab 0 09/15/2011 10/14/2011 methylphenidate (RITALIN;METHYLIN) 10 mg tablet Take one tab in the afternoon for narcolepsy 30 Tab 0 09/15/2011 10/14/2011 documented in this encounter Miscellaneous Notes * Telephone Encounter - Corrina Ac RN - 09/15/2011 0938 EST Called pt and let her know her Ritalin refills are ready for roll picker. * Telephone Encounter - Duy Booth - 09/15/2011 0837 EST Calling to request a refill of Ritalin SR 20mg and Ritalin 10mgs. Please call her when she can pickthese up. documented in this encounter Plan of Treatment Upcoming Encounters Date Type Department Care Team (Late st Contact Info) Description 06/29/2024 14:15 EDT Office Visit [facility] [address] [place] [address] Jean Munoz MD [address] [place] [phone] documented as of this encounter Visit Diagnoses Not on filedocumented in this encounter Discontinued Medications Medication Sig Discontinue Reason Start Date End Da te methylphenidate (RITALIN;METHYLIN) 10 mg tablet Take one tab in the afternoon for narcolepsy Reorder 08/17/2011 09/15/2011 methylphenidate (RITALIN SR; METADATE ER; METHYLIN ER) 20 mg SR tablet Brand only. Please take 2 tabs in the morning for narcolepsy. Reorder 08/17/2011 09/15/2011 documented as of this encounter Care Teams Receiving Associate Store Relationship Specialty Start Date End Date Jean Munoz MD [address] [place] [phone] PCP - General 12/31/08 Manny Rizzo MD [address] [place] [phone] 04/20/10 documented as of this encounter
--- OUTSIDE RECORDS SUMMARY | 2024-06-10 07:32 | XMS_ITS | Encounter Summary ---
Author Organization [facility] Address [address] [place] [address] Care Team Providers Care House Repairer Name Role Phone Jean Munoz MD Primary Care Provider Manny Rizzo MD Unavailable Encounter Details Date Type Department Care Team (Late st Contact Info) Description 11/20/2011 Abstract [facility] [address] [place] [address] Jean Munoz MD [address] [place] [phone] Social History Tobacco Use Types [...] EDT Office Visit [facility] [address] [place], [place] [phone] Jean Munoz MD [address] [place] [phone] documented as of this encounter Visit Diagnoses Not on filedocumented in this encounter Care Teams House Repairer Relationship Specialty Start Date End Date Jean Munoz MD [address] [place] [phone] PCP - General 12/31/08 Manny Rizzo MD [address] [place] [phone] 04/20/10 documented as of this encounter
--- OUTSIDE RECORDS SUMMARY | 2024-06-10 07:32 | XMS_ITS | Encounter Summary ---
Author Organization [facility] Address [address] [place] [address] Care Team Providers Care Spinner Cap Frame Name Role Phone Jean Munoz MD Primary Care Provider Manny Rizzo MD Unavailable Reason for Visit * Reason Onset Date Comments Medications Refill 12/09/2011 Encounter Details Date Type Department Care Team (Late st Contact Info) Description 12/09/2011 Refill [facility] Sleep Program - [address] [phone] Tiana Bacon [address] [place] [phone] Medications Refill Social History Tobacco Use [...] the morning for narcolepsy. 60 Tab 0 12/09/2011 01/06/2012 methylphenidate (RITALIN;METHYLIN) 10 mg tablet Take one tab in the afternoon for narcolepsy 30 Tab 0 12/09/2011 01/06/2012 documented in this encounter Miscellaneous Notes * Telephone Encounter - Corrina Ac RN - 12/09/2011 1509 EDT Called pt and let her know her (ritalin) prescriptions are ready for nut picker. * Telephone Encounter - Duy Booth - 12/09/2011 1238 EDT Calling to request refills of Ritalin SR 20mgs (Brand) and Ritalin 10mgs. Please call her when she can pick these up. documented in this encounter Plan of Treatment Upcoming Encounters Date Type Department Care Team (Late st Contact Info) Description 06/29/2024 14:15 EDT Office Visit [facility] Medicine [facility] [address] [place] [address] Jean Munoz MD [address] [place] [phone] documented as of this encounter Visit Diagnoses Not on filedocumented in this encounter Discontinued Medications Medication Sig Discontinue Reason Start Date End Da te methylphenidate (RITALIN;METHYLIN) 10 mg tablet Take one tab in the afternoon for narcolepsy Reorder 11/12/2011 12/09/2011 methylphenidate (RITALIN SR; METADATE ER; METHYLIN ER) 20 mg SR tablet Brand only. Please take 2 tabs in the morning for narcolepsy. Reorder 11/12/2011 12/09/2011 documented as of this encounter Care Teams Spinner Cap Frame Relationship Specialty Start Date End Date Jean Munoz MD [address] [place] [phone] PCP - General 12/31/08 Manny Rizzo MD [address] [place] [phone] 04/20/10 documented as of this encounter
--- OUTSIDE RECORDS SUMMARY | 2024-06-10 07:32 | XMS_ITS | Encounter Summary ---
Author Organization [facility] Address [address] [place] [address] Care Team Providers Care Performance Improvement Analyst Name Role Phone Jean Munoz MD Primary Care Provider Manny Rizzo MD Unavailable Reason for Visit * Reason Onset Date Comments Pharmacy 02/18/2012 Encounter Details Date Type Department Care Team (Late st Contact Info) Description 02/18/2012 Telephone [facility] - [address] [phone] Tiana Bacon [address] [place] [phone] Pharmacy Social History Tobacco Use Types Packs/Day [...] Telephone Encounter - Corrina Ac RN - 02/18/2012 1234 EDT Spoke with pt to clarify if she needs brand name for both of her Ritalin prescriptions as she indicated on 02/09/12. Pt stated she was confused, it is only the SR that she needs the brand, ok with generic for IR. Called [facility], spoke with pharmacist Rivas and made him aware. * Telephone Encounter - Yanet Zacarias - 02/18/2012 1214 EDT Pharmacy called regarding medication Methophenidate [address] Bacon wrote script for Brand Only and pt was okay with generic. If Brand is neccessary then a P.A. Will be needed. Please call pharmacy to verify what to fill. documented in this encounter Plan of Treatment Upcoming Encounters Date Type Department Care Team (Late st Contact Info) Description 06/29/2024 14:[address] [facility] Medicine [facility] [address] [place], [place] [phone] Jean Munoz MD [address] [place] [phone] documented as of this encounter Visit Diagnoses Not on filedocumented in this encounter Care Teams Performance Improvement Analyst Relationship Specialty Start Date End Date Jean Munoz MD [address] [place] [phone] PCP - General 12/31/08 Manny Rizzo MD [address] [place] [phone] 04/20/10 documented as of this encounter
--- OUTSIDE RECORDS SUMMARY | 2024-06-10 07:32 | XMS_ITS | Encounter Summary ---
Author Organization [facility] Address [address] [place] [address] Care Team Providers Care Piece Goods Packer Name Role Phone Jean Munoz MD Primary Care Provider Manny Rizzo MD Unavailable Reason for Visit * Reason Comments Other Encounter Details Date Type Department Care Team (Late st Contact Info) Description 11/13/2011 [facility] [address] [place] [address] Jean Munoz MD [address] [place] [phone] Other Social History Tobacco Use Types [...] Refills Start Date End Da te ADVAIR DISKUS 500-50 mcg/dose diskus inhaler INHALE ONE PUFF BY MOUTH TWICE A DAY DIRECTED 180 Each 3 11/13/2011 09/28/2012 LYRICA 150 mg capsule TAKE 1 CAPSULE BY MOUTH THREE TIMES A DAY 270 Each 1 11/13/2011 05/26/2012 ropinirole (REQUIP) 2 mg tablet TAKE ONE TABLET BY MOUTH AT BEDTIME 90 Each 3 11/13/2011 11/24/2012 documented in this encounter Miscellaneous Notes * Telephone Encounter - Yadira Dunbar RN - 11/16/2011 1127 EST EMMA 10/15/11 NOV 12/09/11 Patient noted to be using advair, lyrica and requip in that appointment for related diagnoses of asthma, severe major depression, and chronic pain. RN approved these medications for this patient and escripted them to [facility]. documented in this encounter Plan of Treatment Upcoming Encounters Date Type Department Care Team (Late st Contact Info) Description 06/29/2024 14:15 EDT Office Visit [facility] [address] [place] [address] Jean Munoz MD [address] [place] [phone] documented as of this encounter Visit Diagnoses Not on filedocumented in this encounter Discontinued Medications Medication Sig Discontinue Reason Start Date End Da te ropinirole (REQUIP) 2 mg tabletIndications:Restl ess leg syndrome Take 1 Tab by mouth at bedtime. Reorder 11/13/2010 11/13/2011 pregabalin (LYRICA) 150 mg capsule TAKE ONE CAPSULE BY MOUTH THREE TIMES A DAY Reorder 05/19/2011 11/13/2011 fluticasone-salmeterol (ADVAIR DISKUS) 500-50 mcg/dose diskus inhaler Inhale 1 Puff as directed 2 times daily. Reorder 11/13/2010 11/13/2011 documented as of this encounter Care Teams Piece Goods Packer Relationship Specialty Start Date End Date Jean Munoz MD [address] [place] [phone] PCP - General 12/31/08 Manny Rizzo MD [address] [place] [phone] 04/20/10 documented as of this encounter
--- OUTSIDE RECORDS SUMMARY | 2024-06-10 07:32 | XMS_ITS | Encounter Summary ---
Author Organization [facility] Address [address] [place] [address] Care Team Providers Care Slag Dumper Name Role Phone Jean Munoz MD Primary Care Provider Manny Rizzo MD Unavailable Reason for Visit * Reason Comments Follow-up Cough x 1 week Encounter Details Date Type Department Care Team (Late st Contact Info) Description 01/01/2012 13:00 EDT Office Visit [facility] [address] [place] [address] Jean Munoz MD [address] [place] [phone] URI (upper respiratory infection) (Primary Dx); Asthma; Anxiety Social History Tobacco Use Types Packs/Day [...] Sign Reading Time Taken Comments Blood Pressure 104/72 01/01/2012 1300 EDT Pulse 72 01/01/2012 1300 EDT Temperature 36.5 ??C (97.7 ??F) 01/01/2012 1300 EDT Respiratory Rate 96 01/01/2012 1300 EDT Oxygen Saturation - - Inhaled Oxygen Concentration - - Weight 92.5 kg (204 lb) 01/01/2012 1300 EDT Height 162.6 cm (5' 4) 01/01/2012 1300 EDT Body Mass Index 35.02 01/01/2012 1300 EDT documented in this encounter Functional Status [...] then stop 30 Each 0 01/01/2012 01/22/2012 lorazepam (ATIVAN) 0.5 mg TabIndications:Anxiety Take 1 Tab by mouth every 6 hours as needed (anxiety). 30 Each 0 01/01/2012 04/11/2012 documented in this encounter Progress Notes * Jean Munoz MD - 01/01/2012 1310 EDT Subjective: Patient ID: Liset Viera is an 51 y.o. female. Chief Complaint Patient presents with ??? Follow-up ??? Cough x 1 week HPI 1. Anxiety Mother recently from lung cancer Had birthday recently 2. Cough Onset last Wednesday +wheezing See ROS Patient Active Problem List Diagnoses ??? Severe [...] Laceration 12/26/09 ??? Dizziness 12/26/09 ??? Cataract Current Outpatient Prescriptions on File Prior to Visit Medication Sig Dispense Refill ??? methylphenidate (RITALIN;METHYLIN) 10 mg tablet Take one tab in the afternoon for narcolepsy 30Tab 0 ??? methylphenidate (RITALIN SR; METADATE ER; METHYLIN ER) 20 mg SR tablet Brand only. Please take 2 tabs in the morning for narcolepsy. 60 Tab 0 ??? baclofen (LIORESAL) 10 mg [...] Never Used ??? Alcohol Use: No rarely Review of Systems Constitutional: Positive for fever, chills and diaphoresis. HENT: Positive for ear pain and sore throat. Respiratory: Positive for cough, shortness of breath and wheezing. Negative for sputum production. Neurological: Positive for headaches. - See HPI Objective: BP 104/72 Pulse 72 Temp(Src) 36.5 ??C (97.7 ??F) (Oral) Resp 96 Ht 162.6 cm (64) Wt 92.534 kg (204 lb) BMI 35.02 kg/m2 Physical Exam Nursing note and vitals reviewed. Constitutional: No distress. HENT: Right Ear: External ear normal. Left Ear: External ear normal. Mouth/Throat: Oropharynx is clear and moist. No oropharyngeal exudate. Eyes: Conjunctivae are normal. Right eye exhibits no discharge. Left eye exhibits no discharge. Pulmonary/Chest: Effort normal and breath sounds normal. No respiratory distress. She has no wheezes. She has no rales. Lymphadenopathy: She has no cervical adenopathy. Assessment: Plan: Liset was seen today for follow-up and cough. Diagnoses and associated orders for this visit: Uri (upper respiratory infection) Likely viral Asthma - Ear/Pulse Oximetry, Single Continue Adviar, levalbuterol Prednisone taper Anxiety - lorazepam (ATIVAN) 0.5 mg Tab; Take 1 Tab by mouth every 6 hours as needed (anxiety). Other Orders - predniSONE (DELTASONE) 5 mg tablet; Take 4/day for 3 days, then 3day for 3 days, then 2/day for 3days, then 1/day for 3, days then stop Will see Graciela Albarado ([facility] patient support) Patient Education Topic: as above Method: Verbal Taught to: Patient Barriers: None Outcomes: Verbalized understanding Return if symptoms worsen or fail to improve. documented in this encounter Plan of Treatment Upcoming Encounters Date Type Department Care Team (Late st Contact Info) Description 06/29/2024 14:15 EDT Office Visit [facility] [address] [place] [address] Jean Munoz MD [address] [place] [phone] Scheduled Orders Name Type Priority Associated Diagnoses Orde r Schedule EAR/PULSE OXIMETRY, SINGLE Procedures Routine Asthma Ordered: 01/01/2012 documented as of this encounter Visit Diagnoses Diagnosis URI (upper respiratory infection)- Primary Acute upper respiratory infections of unspecified site Asthma Unspecified asthma Anxiety Anxiety state, unspecified Screening for osteoporosis- [...] End Da te lorazepam (ATIVAN) 0.5 mg TabIndications:Anxiety Take 1 Tab by mouth every 6 hours as needed (anxiety). Reorder 12/22/2011 01/01/2012 documented as of this encounter Care Teams Slag Dumper Relationship Specialty Start Date End Date Jean Munoz MD [address] [place] [phone] PCP - General 12/31/08 Manny Rizzo MD [address] [place] [phone] 04/20/10 documented as of this encounter
--- OUTSIDE RECORDS SUMMARY | 2024-06-10 07:32 | XMS_ITS | Encounter Summary ---
Author Organization [facility] Address [address] [place] [address] Care Team Providers Care Drug Abuse Resistance Education Officer Name Role Phone Jean Munoz MD Primary Care Provider Manny Rizzo MD Unavailable Reason for Visit * Reason Comments Split Night Polysomnogram Encounter Details Date Type Department Care Team (Late st Contact Info) Description 08/07/2011 21:30 EST Office Visit [facility] [address] [address] Tiana Bacon [address] [place] [address] Hypersomnia (Primary Dx) Social History Tobacco Use Types [...] Progress Notes * Tiana Bacon MD - 08/16/2011 6416 EST SLEEP STUDY REPORT Name: Liset Viera : 1960 Date of Study: 08/07/2011 Referring Provider: Dr. Tiana Bacon Primary Care Provider:Dr. 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 Weight is 200 lbs, BMI 34.31. Daily prescribed medications: Current Outpatient Prescriptions Medication Sig Dispense Refill ??? nortriptyline (PAMELOR) 75 mg capsule Take 1 Cap by mouth daily. 30 Each 3 ??? zolpidem (AMBIEN) 10 mg tablet Take 1 Tab by mouth at bedtime as needed for Sleep. 30 Each 2 ??? methylphenidate (RITALIN;METHYLIN) 10 mg tablet Take one tab in the afternoon for narcolepsy 30Tab 0 ??? methylphenidate (RITALIN SR; METADATE ER; METHYLIN ER) 20 mg SR tablet Brand only. Please take 2 tabs in the morning for narcolepsy. 60 Tab 0 ??? omeprazole (PRILOSEC) 20 mg capsule TAKE ONE CAPSULE BY MOUTH EVERY DAY 90 Each 0 ??? pregabalin (LYRICA) 150 mg capsule TAKE ONE CAPSULE BY MOUTH THREE TIMES A DAY 270 Each 1 ??? baclofen (LIORESAL) 10 mg tablet Take 0.5-1 Tabs by mouth 3 times daily as needed. 90 Tab 3 ??? sumatriptan (IMITREX) 50 mg tablet TAKE 1 TABLET BY MOUTH ONCE NEEDED FOR MIGRAINE 9 Each 2 ??? fexofenadine (JUDITH) 180 mg tablet [...] 2 times daily as needed for Constipation. Medications taken the night of the study: Lyrica, Requip, Zoloft, and Ambien Bedtime patient questionnaire: The patient endorses symptoms of snoring, restless sleep, frequent awakening, insomnia leg kicking,daytime sleepiness and somnambulance. Her usual bedtime is at 11 PM and she typically wakes at 7 AM. On the night prior to the study, she took Ambien 10 mg at bedtime and got a good 8 hours of sleep, which was not typical for her--usually she gets 6-8 hours. She felt rested on the morning of the study and did not nap. She did not have any caffeine, or alcohol. Technical Description: An overnight polysomnogram is performed and attended by a trained imaging technologist. Monitoring channels include EEG channels F3M2, F4M1, C3M2, C4M1, O1M2, O2M1; left and right EOG; submental EMG; bilateral anterior tibialis EMG; thoracic and abdominal respiratory effort by RIP belts; snoring microphone; airflow by nasal pressure transducer and oral thermister; pulse oximetry; single lead EKG; body position monitor. Selective review of events are also available from video recording. Scoring of the polysomnographic data is performed according to the 2007 [place] [employer] Manual for the Scoring of Sleep and Associated Events. The Apnea-Hypopnea Index (AHI) is calculated as the total number of apneas plus hypopneas per hour as defined by the AASM recommended rule VIII.4.A which requires a > 4% reduction in oxygen desaturation. The Respiratory Disturbance Index (RDI) is determined using all apneas, hypopneas plus respiratory effort related arousals (RERAs). FINDINGS : Sleep Lights out is 10:57 PM, lights on is 5:39 AM. Sleep onset latency is 2.5 minutes. Total time in bedis 402 minutes with a total sleep time of 378 minutes for a sleep efficiency of 94.2%. Sleep stage percentages are as follows: 3.3% Stage N1, 69% Stage N2, 11.6% Stage N3, and 16.1% REM sleep. The arousal index is 9/hr. Body Position The patient spends 282.2 minutes of sleep supine, 0 minutes prone,98.5 minutes on the left side and0 minutes on the right side. Breathing Frequent snoring is noted. The overall Apnea-Hypopnea Index (AHI) is 0.5. The AHI supine is 0.2, the non-supine AHI is 1.2; REM AHI is 2.0. The overall Respiratory-Disturbance Index (RDI) is 0.8. The average wake O2 saturation is 94%, average O2 saturation over the study is 89% with a minimum O2 saturation of 0 %. The percentage of the sleep time at an O2 saturation less than 89% is 0%. The oxygen desaturation index is 7/hr. Leg Movements The periodic limb movement of sleep (PLMS) index is 22.8 per hour with a periodic limb movement arousal index of 5.5. Cardiac Average heart rate during REM sleep of 75.4 bpm, and NREM sleep of 76.8 bpm. Normal sinus rhythm isseen. Risetime patient questionnaire: The following morning, the patient reported that she she felt like she had gotten 6 hours of sleep,and described her sleep as average compared to a typical night at home. She awoke feeling tired in the morning. IMPRESSION: 1) No Obstructive Sleep Apnea is seen. 2) Sleep efficiency is normal. Very short onset for sleep is noted, with shortened REM latency. 3) Mild Periodic Limb Movements of Sleep are seen. These are not frequently associated with arousal. . RECOMMENDATIONS: The patient has been scheduled for follow up with Dr. Tiana Bacon to discuss results. Proper ???Sleep Hygiene?? including a set bedtime and rise time is encouraged, as well as avoidingcaffeine and alcohol before bedtime, which can have a detrimental effect on sleep quality. * Ahmet Hubbard - 08/10/2011 1518 EST Images from the original note were not included. Technologist Preliminary Report (Not a Physician Interpretation) Liset Viera ([id number]) Polysomnographic Report Recording identification Patient name: Liest Viera Referring Physician Jordi Test Date: 08/07/2011 Interpreting physician Sex: F Scoring Tech JR date: 1960 Study # [id number] Patient age: 50 years STUDY TYPE: PSG Sleep Medications: Ambien 10mg @ 2245 hrs (also self administered Lyrica, Requip, and Zoloft per current med list) Test Description: The Multi-channel overnight study consists of a combination of EOG, Chin EMG, EEG, Limb EMG, Thoracic and Abdominal wall movements, Nasal/oral airflow, nasal pressure, ECG, body position and tracheal sound. Scoring Tech Observations: Type: OH and RERA Snoring: moderate PLMs: Yes DIAGNOSTIC STUDY SUMMARY: Pt entered sleep prior to lights out assisted by zolpidem. Loud snoring observed with PLMs early instudy. Minimal respiratory disturbances. Pt stated that they slept with two pillows. Later in study, requested pt sleep with one pillow. No change to respiratory events. Snoring present throughout entire study. Sleep Data Light off (LO) : 10:57:51 PM Sleep onset (SO) : 11:00:21 PM Light on (TRISH) : 5:39:51 AM Durations Time in Bed : 402.0 min Light off -> Light on Total Sleep Time : 378.5 min REM + NREM (during SPT) Sleep Efficiency : 94.2% 100 x TST/TIB REM time : 61.0 min REM (during TIB) NREM time : 320.0 min N1 + N2 + N3 (during TIB) : Latencies From Light off (min) From Sleep onset (min) Sleep onset 2.5 - N1 2.5 0.0 N2 0.0 1.5 N3 32.5 30.0 REM 235.0 232.5 Sleep stages distribution duration TIB TST (min) (%) (%) WK (TIB) 21.0 5.2 - REM 61.0 15.2 16.1 N1 12.5 3.1 3.3 N2 263.5 65.5 69.0 N3 44.0 10.9 11.6 Arousal Summary Total number With resp. event With resp. event & desat Leg Mvt arousal Spontaneous arousal m arousal REM 6 1 0 3 2 m arousal NREM 42 0 0 30 12 m arousal TOT 55 1 0 35 19 arousal >15sec 2 1 0 0 1 Total number of WK or MVT episodes : 10 Arousal index : 9.0/h(sleep) Respiratory Data REM Events CA OA MA Sum Ap Hyp RERA Resp. Events Number 0 0 0 0 2 2 4 Max (sec.) 0.0 0.0 0.0 0.0 26.0 16.0 26.0 Mean (sec.) 0.0 0.0 0.0 0.0 26.0 13.8 19.9 Index (#/h REM) 0.0 0.0 0.0 0.0 2.0 2.0 3.9 Non-REM events CA OA MA Sum Ap Hyp RERA Resp. Events Number 0 0 0 0 1 0 1 Max (sec.) 0.0 0.0 0.0 0.0 16.0 0.0 16.0 Mean (sec.) 0.0 0.0 0.0 0.0 16.0 0.0 16.0 Index (#/h NREM) 0.0 0.0 0.0 0.0 0.2 0.0 0.2 Respiratory events summary (Total sleep time) CA OA MA Sum Ap Hyp RERA Resp. Events Number 0 0 0 0 3 2 5 Max (sec.) 0.0 0.0 0.0 0.0 26.0 16.0 26.0 Mean (sec.) 0.0 0.0 0.0 0.0 22.7 13.8 19.1 Index (#/h TST) 0.0 0.0 0.0 0.0 0.5 0.3 0.8 Respiratory Event Index Summary (Total sleep time) REM #/h (REM) NREM #/h(NREM) TST #/h (sleep) AHI 2.0 0.2 0.5 RDI 3.9 0.2 0.8 Body Position Summary pos Total Dur.(min) Total Sleep Dur (min) Total Sleep (%) Total REM Dur (min) Arousal Index CA (#) OA (#) MA (#) HYP (#) REM AHI Non REM AHI SONYA index (#/h) AHI L 97.6 96.1 98.5 60.6 5.0 0 0 0 2 2.0 0.0 3.1 1.2 P S 298.0 282.2 94.7 0.2 8.7 0 0 0 1 0.0 0.2 0.6 0.2 R pos Total Dur.(min) Total Sleep Dur (min) Total Sleep (%) Total REM Dur (min) Arousal Index CA (#) OA (#) MA (#) HYP (#) TotalRERA (#) Non REM RDI REM RDI index (#/h) RDI L 97.6 96.1 98.5 60.6 5.0 0 0 0 2 2 0.0 4.0 2.5 P 0 S 298.0 282.2 94.7 0.2 8.7 0 0 0 1 0 0.2 0.0 0.2 R Oximetry Summary Oximetry distribution WK REM NREM TOTAL <70 (min) 0.0 0.0 0.0 0.0 <80 (min) 0.0 0.0 0.0 0.0 <89(min) 0.0 0.0 0.0 0.0 <90 (min) 0.0 0.1 0.0 0.1 Average (%) 94 93 93 93 Minimum 02 (%) 89 Desat Index (#/hour) 3.0 0.9 1.3 Desat max (%) 7 4 4 7 Heart Rate Summary Statistics WK REM NREM Mean HR (BPM) 78.0 75.4 76.8 Median (BPM) 80.500 75.000 77.000 Leg Movements Summary Count Index (#/h) Leg movements 201 31.9 Leg movements meeting PLM criteria 144 22.8 Leg movements with respiratory events with arousal 0 0.0 Leg movements with arousal (without respiratory event) 35 5.5 Leg mvts without arousal and without respiratory event 166 26.3 Time (min) Total time with PLM : 36.9 min ( 9.7 % of sleep) * Cory Mendoza Franco - 08/07/20112 EST [facility] PSG IMMIGRATION JUDGE DOCUMENTATION FORM Acquiring Tech: Cory Mendoza Patient Name: Liset Viera Date of : 1960 Gender: female Date of Service: 08/07/2011 Place of Study: [facility] [place] ([facility]) Bed/PC #: 6 Study #: [id number] Provider ordering study: Jordi Type of study ordered (See Chief Complaint) Chief Complaint Patient presents with ??? Split Night Polysomnography Reason for Visit: Rule out KATJA MEDICAL HISTORY: Sleep Symptoms: Snoring: Yes. Witnessed Apnea/Abnormal Breathing: No. Using oxygen at night at home: No. Restless Sleep: Yes. Frequent Awakenings: Yes. Insomnia: Yes. Leg Kicking/RLS symptoms: Yes. Unusual behaviors in sleep: Yes. What type of behaviors? Somnambulance. Daytime Sleepiness or Napping: Yes. Usual Bedtime: 2300 Usual Risetime: 0700 Medications (list name; dosage required only for nighttime meds & stimulants) zolpidem (AMBIEN) 10 mg tablet methylphenidate (RITALIN;METHYLIN) 10 mg tablet methylphenidate (RITALIN SR; METADATE ER; METHYLIN ER) 20 mg SR tablet omeprazole (PRILOSEC) 20 mg capsule pregabalin (LYRICA) 150 mg capsule nortriptyline (PAMELOR) 50 mg capsule baclofen (LIORESAL) 10 mg tablet sumatriptan (IMITREX) 50 mg tablet fexofenadine (JUDITH) 180 mg tablet CYCLOSPORINE (RESTASIS OPHT) Flaxseed Oil hydroxypropyl methylcellulose (ISOPTO TEARS) 0.5 % ophthalmic solution fluticasone-salmeterol (ADVAIR DISKUS) 500-50 mcg/dose diskus inhaler levalbuterol (XOPENEX HFA) 45 mcg/Actuation inhaler mometasone (NASONEX) 50 mcg/Actuation nasal spray promethazine (PHENERGAN) 25 mg tablet ropinirole (REQUIP) 2 mg tablet sertraline (ZOLOFT) 100 mg tablet docusate sodium (COLACE) 100 mg capsule Already take today (day of sleep study)? All bar following Will still take tonight? kris ayala Weight: 200 lbs BEDTIME PATIENT QUESTIONNAIRE Did you use a sleeping medicine last night? Yes, what time/which sleep med/dose: 2229. How many hours of sleep do you feel you got last night ? A good 8 hours. Was this a typical night? No: Typical is 6-8. Did you feel rested this morning? Yes. Did you nap today? No. Caffeine (amount/time) today: None. Alcohol (amount/time) today: None. Other Info: N/A RISETIME PATIENT QUESTIONNAIRE Did you use a sleeping medicine last night? Yes, what time/which sleep med/dose: zolpidem 10mg @ 5. How many hours of sleep do you feel you got last night ? 6 hours. How would you describe your sleep last night in our lab compared to a typical night at home? average. How do you feel this morning? Tired. Was CPAP/BiPAP therapy used last night? No. [email or web address] choice? N/A PSG TECHNOLOGIST LOG SHEET (NOT INTERPRETED BY A PHYSICIAN) Patient's Name: Liset Viera DOS: 08/07/2011 Before Study Baseline HR: 73 Respiratory Rate: 22 Resting SPO2: 97 room air. Head of Bed elevated? No. Number of pillows? 2 pillows Time 00:00- 24:00 IPAP/ EPAP cm Supp O2 LPM Mask- *Brand *Model *Size Leak Tech observations and Troubleshooting Sleep Stage Body Position/ Video Low SpO2 2300 Sleep onset 2312 tir - lights out 1,2,w s 90 2340 Plms, snore 2,1,3 s 92 0010 snore 2,3 s 91 0040 snore 3,2,w,1 s 91 0110 snore 2,3,w,1 s 92 0140 snore 2,3 s 92 0210 snore 3,2 s 92 0240 snore 2,3,w,1 s,l 89 0310 Snore, oh 2,w,r l 89+ 0340 snore r l 91+ 0354 tir - request lateral sleep / pt bathroom r l 0358 tor 0425 Snore, ca W,1,2 s 91 0455 snore 2,w,1 s 92 0525 snore 2,3 s 92 0540 snore 3,2,w,1 s 91 0540 Lights on Mask recommended by Technologist: not a titration study [facility] DIAGNOSTIC PSG TECH OBSERVATION REPORT Technologist: Cory Mendoza Sleep Architecture All stages seen: Yes Sleep Onset REM: No Respiratory Events Index: Low Type: OH and RERA Position of respiratory events: No correlation Snoring: moderate Breathing: both oral and nasal Sp0?? REM: Mean Rodney 89 NREM: Mean Rodney 89 If no supine time, why? If no lateral time, why? Arrhythmias: Sinus DIAGNOSTIC STUDY SUMMARY: Pt entered sleep prior to lights out assisted by zolpidem. Loud snoring observed with PLMs early instudy. Minimal respiratory disturbances. Pt stated that they slept with two pillows. Later in study, requested pt sleep with one pillow. No change to respiratory events. Snoring present throughout entire study. documented in this encounter Plan of Treatment Upcoming Encounters Date Type Department Care Team (Late st Contact Info) Description 06/29/2024 14:15 EDT [facility] [address] [place] [address] Jean Munoz MD [address] [place] [phone] documented as of this encounter Visit Diagnoses Diagnosis Hypersomnia- Primary Hypersomnia, unspecified Screening for osteoporosis- Primary Special screening for osteoporosis Primary narcolepsy without cataplexy Chronic pain syndrome Chronic low back pain Lumbago Chronic use of opiate for therapeutic purpose Pain medication agreement Encounter for long-term (current) use of other medications Screen for colon cancer Special screening for malignant neoplasms, colon documented in this encounter Care Teams Drug Abuse Resistance Education Officer Relationship Specialty Start Date End Date Jean Munoz MD [address] [place] [address] PCP - General 12/31/08 Manny Rizzo MD [address] [place] [phone] 04/20/10 documented as of this encounter
--- OUTSIDE RECORDS SUMMARY | 2024-06-10 07:32 | XMS_ITS | Encounter Summary ---
Author Organization [facility] Address [address] [place] [address] Care Team Providers Care Tank Builder Name Role Phone Jean Munoz MD Primary Care Provider Manny Rizzo MD Unavailable Reason for Visit * Reason Onset Date Comments Medications Refill 07/22/2011 Encounter Details Date Type Department Care Team (Late st Contact Info) Description 07/22/2011 Refill [facility] [address] [place], [place] [phone] Jean Munoz MD [address] [place] [address] Medications Refill Social History Tobacco [...] as needed for Sleep. 30 Each 2 07/22/2011 10/15/2011 documented in this encounter Miscellaneous Notes * Telephone Encounter - Jean Munoz MD - 07/22/2011 1115 EST Script done, please call in to pharmacy and notify patient. * Telephone Encounter - Feli Preston - 07/22/2011 1101 EST Patient calling requesting a refill of her medication. Patient states she spoke with a nurse about this at her appointment yesterday. Patient states she is completely out of medication and she is sleep deprived and needs this medication. documented in this encounter Plan of Treatment Upcoming Encounters Date Type Department Care Team (Late st Contact Info) Description 06/29/2024 14:15 EDT Office Visit [facility] Medicine [facility] [address] [place] [address] Jean Munoz MD [address] [place] [phone] documented as of this encounter Visit Diagnoses [...] at bedtime as needed for Sleep. Reorder 04/20/2011 07/22/2011 documented as of this encounter Care Teams Tank Builder Relationship Specialty Start Date End Date Jean Munoz MD [address] [place] [phone] PCP - General 12/31/08 Manny Rizzo MD [address] [place] [phone] 04/20/10 documented as of this encounter
--- OUTSIDE RECORDS SUMMARY | 2024-06-10 07:32 | XMS_ITS | Encounter Summary ---
Author Organization [facility] Address [address] [place] [address] Care Team Providers Care [place] Name Role Phone Jean Munoz MD Primary Care Provider Manny Rizzo MD Unavailable Encounter Details Date Type Department Care Team (Late st Contact Info) Description 12/23/2011 Abstract [facility] [address] [place] [address] Jean Munoz MD [address] [place] [address] Social History Tobacco Use Types [...] Office Visit [facility] [address] [place], [place] [phone] Jean Munoz MD [address] [place] [phone] documented as of this encounter Visit Diagnoses Not on filedocumented in this encounter Care Teams [place] Relationship Specialty Start Date End Date Jean Munoz MD [address] [place] [phone] PCP - General 12/31/08 Manny Rizzo MD [address] [place] [phone] 04/20/10 documented as of this encounter
--- OUTSIDE RECORDS SUMMARY | 2024-06-10 07:32 | XMS_ITS | Encounter Summary ---
Author Organization [facility] Address [address] [place] [address] Care Team Providers Care Store Group Manager Name Role Phone Jean Munoz MD Primary Care Provider Manny Rizzo MD Unavailable Reason for Visit * Reason Onset Date Comments Medications Refill 12/22/2011 Encounter Details Date Type Department Care Team (Late st Contact Info) Description 12/22/2011 Refill [facility] [address] [place], [place] [phone] Jean Munoz MD [address] [place] [phone] Medications Refill Social History Tobacco [...] hours as needed (anxiety). 30 Each 0 12/22/2011 01/01/2012 documented in this encounter Miscellaneous Notes * Telephone Encounter - Yadira Dunbar RN - 12/22/2011 1642 EDT Patient was given 30 pills on 12/09/11 with instructions to take 1 every 6 hours as needed. Pended new prescription for 30 more pills and routed to covering provider as PCP is out of office today. * Telephone Encounter - Odilia Manley - 12/22/2011 1626 EDT Pt is feeling very anxious, really hoping this medication can be filled. Wanted Dr. Munoz to be aware that her mother a bit earlier today. Pt is having a hard time. Please review medication, pending. * Telephone Encounter - Rukhsana Molina - 12/22/2011 1235 EDT Pt is calling for refill on medication of her lorazapen. She is dealing with lots of anxiety- her mom is dying and she is going thru [address] Munoz is also her mothers physician. Please refill stefan patient really needs. documented in this encounter Plan of Treatment Upcoming Encounters Date Type Department Care Team (Late st Contact Info) Description 06/29/2024 14:15 EDT Office Visit [facility] [address] [place] [address] Jean Munoz MD [address] [place] [phone] documented as of this encounter [...] every 6 hours as needed (anxiety). Reorder 12/09/2011 12/22/2011 documented as of this encounter Care Teams Store Group Manager Relationship Specialty Start Date End Date Jean Munoz MD [address] [place] [phone] PCP - General 12/31/08 Manny Rizzo MD [address] [place] [address] 04/20/10 documented as of this encounter
--- OUTSIDE RECORDS SUMMARY | 2024-06-10 07:32 | XMS_ITS | Encounter Summary ---
Author Organization [facility] Address [address] [place] [address] Care Team Providers Care Skiver Counter Name Role Phone Jean Munoz MD Primary Care Provider Manny Rizzo MD Unavailable Reason for Visit * Reason Comments Knee Pain s/p fall 1 month ago , left knee pain; ambulatory with kwan wrap; reports by the end of the day when I wrap it, my leg and foot is swollen and it hurts so he (PCP) told me to come up and get it drained Encounter Details Date Type Department Care Team (Late st Contact Info) Description 02/03/2012 13:39 EDT - 02/03/2012 15:08 EDT Emergency [facility] Emergency Department - [facility] [address], [place] [id number] Jaun Willoughby, PA-C [address] [place], [place] [address] Emergency, MD Ismael Knee effusion, left; Prepatellar bursitis of left knee Discharge Disposition: Home or [...] Sign Reading Time Taken Comments Blood Pressure 119/66 02/03/2012 1345 EDT Pulse 71 02/03/2012 1345 EDT Temperature 35.6 ??C (96.1 ??F) 02/03/2012 1345 EDT Respiratory Rate 12 02/03/2012 1345 EDT Oxygen Saturation 99% 02/03/2012 1345 EDT Inhaled Oxygen Concentration - - Weight 93.9 kg (207 lb) 02/03/2012 1345 EDT Height 162.6 cm (5' 4) 02/03/2012 1345 EDT Body Mass Index 35.53 02/03/2012 1345 EDT documented in this encounter Functional Status Cognitive Status Response Date of Assessm ent Because of a physical, menta l, or emotional condition, do you have serious difficulty concentrating, remembering, or making decisions? (5 years old or older) Yes 09/19/2010 documented as of this encounter Discharge Instructions * Discharge Instructions* To Willoughby - 02/03/2012 14:42 EDT Wear knee immobilizer at all times except for bathing until Wednesday. Take Ibuprofen and or Tylenol for pain Take Vicodin for severe pain. Be sure to follow up with Orthopedics in one week. Return to ED if you develop increasing pain, fevers, redness, or the inability to bear weight. documented in this encounter Medications at Time [...] 4 12/09/2011 11/24/2012 Flaxseed Oil Oil by [facility].(Non-Drug; Combo Route) route. 04/11/2012 hydrocodone-acetaminophe n (VICODIN) 5-500 mg per tablet Take 1 Tab by mouth every 4 hours. 8 Tab 0 02/03/2012 03/01/2012 hydroxypropyl methylcellulose (ISOPTO TEARS) 0.5 % ophthalmic [...] 12/09/2011 03/08/2012 documented as of this encounter Ordered Prescriptions Prescription Sig Dispensed Refills Start Date End Da te hydrocodone-acetaminophen (VICODIN) 5-500 mg per tablet Take 1 Tab by mouth every 4 hours. 8 Tab 0 02/03/2012 03/01/2012 documented in this encounter Discharge Disposition Disposition Code Departure Means Destination Home or Self [facility] documented in this encounter ED Notes * Kriss Marshall RN - 02/03/2012 1507 EDT assisted pt to return to friend on second floor Via wheelchair * To Willoughby - 02/03/2012 1443 EDTAssociated Order(s): ARTHROCENTESIS DOS: 02/03/2012 Chief Complaint Patient presents with ??? Knee Pain s/p fall 1 month ago, left knee pain; ambulatory with kwan wrap; reports by the end of the day whenI wrap it, my leg and foot is swollen and it hurts so he (PCP) told me to come up and get it drained The patient is a 51 y.o. female who presents today with Knee Pain HPI The patient is a 51-year-old female who fell onto her left knee approximately one month ago. Since then she has had significant knee swelling and moderate pain in the left knee. She is very certain that the swelling began with the fall. She denies having having any fevers, chills, sweats, nausea, vomiting, diarrhea. She does have a slight increase of pain with weightbearing and also experiences worsening pain with flexion of the knee. She saw her primary care provider and he sent her here to have her knee drained. She has not been doing any physical therapy. She has been taking ibuprofen for pain Review of Systems Constitutional: Positive for activity change. Negative for fever, chills, diaphoresis and fatigue. Respiratory: Negative. Cardiovascular: Negative. Gastrointestinal: Negative. Genitourinary: Negative. Musculoskeletal: Positive for back pain, joint swelling (left knee), arthralgias and gait problem. Neurological: Negative. Hematological: Negative. Psychiatric/Behavioral: The patient is nervous/anxious. Past Medical History Diagnosis Date ??? UTI [...] ??? Cataract Maternal Grandfather Vital Signs Temp: 35.6 ??C (96.1 ??F) Temp src: Tympanic Pulse: 71 Resp: 12 SpO2: 99 % SpCO: 2 % BP: 119/66 mmHg O2 Device: None (Room air) Physical Exam Constitutional: She is oriented to person, place, and time. She appears well- developed and well-nourished. HENT: Head: Normocephalic and atraumatic. Cardiovascular: Normal rate. Pulmonary/Chest: Effort normal. Musculoskeletal: Her left knee has a 2+ effusion that feels like it is mostly within the knee joint. However she also has significant swelling over the prepatellar bursa. There is no erythema. She is tender to light touch throughout the entire knee. Passive range of motion from zero to approximately 100??. She is stable to varus and valgus stress testing. Her hip and ankle on the left side are within normal limits. Neurological: She is alert and oriented to person, place, and time. Skin: Skin is warm and dry. Psychiatric: She has a normal mood and affect. Her behavior is normal. Thought content normal. Radiology orders: None Arthrocentesis Date/Time: 02/03/2012 14:47 Performed by: JAUN WILLOUGHBY Authorized by: JAUN WILLOUGHBY Consent: Verbal consent obtained. Risks and benefits: risks, benefits and alternatives were discussed Consent given by: patient Patient identity confirmed: verbally with patient Indications: joint swelling and pain Body area: knee Joint: left knee Local anesthesia used: yes Anesthesia: local infiltration Local anesthetic: lidocaine 1% without epinephrine Anesthetic total: 2 ml Patient sedated: no Preparation: Patient was prepped and draped in the usual sterile fashion. Needle gauge: 18 G Approach: lateral Aspirate: blood-tinged and clear Aspirate amount: 60 ml Patient tolerance: Patient tolerated the procedure well with no immediate complications. ED Course: A medical screening exam was performed. 51-year-old female with post traumatic knee effusion and prepatellar bursitis by clinical exam. I doubt this is an infectious cause given her history and the fact that it has been ongoing for months without infectious signs and symptoms. the patient decided to go forth with drainage of the knee effusion as well as prepatellar bursa. The knee effusion was performed as described above. Then the prepatellar bursa was drained as well in the same manner. In addition to the aspiration above I also obtained approximately 80 cc out of the prepatellar bursa of blood-tinged clear fluid. I have placed the patient in a knee immobilizer for the next 4 days. This will hopefully keep the knee from reaccumulating fluid. I have also given her prescription to go homewith Vicodin. She has strict instructions to followup with orthopedics in one week. Disposition: No disposition on file The patient's pain was managed to an adequate level weighing risk vs. benefit of further medications. Upon departure from the Emergency Department, the patient's pain was 3 on a zero to ten scale. Condition at departure from the Emergency Department: Stable Discharge Prescriptions New Prescriptions No Discharge Prescriptions for this patient MDM 1. Knee effusion, left 2. Prepatellar bursitis of left knee PCP: Jean Munoz MD Maj Eisinger was available for supervision. 02/03/2012 14:43 * Heriberto Noel - 02/03/2012 1424 EDT L knee joint aspiration performed at bedside by TRESA Willoughby. Pt tolerated well. Fluid sample collected by provider. * Sima Tran - 02/03/2012 1349 EDT Ice pack to pt; elevated on chair documented in this encounter Miscellaneous Notes * Scanned Note-Null - [employer], SCAN 2 - 02/05/2012 2220 EDT documented in this encounter Plan of Treatment Upcoming Encounters Date Type Department Care Team (Late st Contact Info) Description 06/29/2024 14:15 EDT [facility] [address] [place] [address] Jean Munoz MD [address] [place] [address] documented as of this encounter Procedures Procedure Name Priority Date/Time Associated Diagnosis Comments ARTHROCENTESIS Routine 02/03/2012 15:10 EDT documented in this encounter Results * ARTHROCENTESIS (02/03/2012 15:10 EDT) Narrative [facility] EKG - 02/03/2012 15:10 EDT Jaun Willoughby PA ? 02/03/2012 15:10 DOS: 02/03/2012 Chief Complaint Patient presents with ? ? Knee Pain ??s/p fall 1 month ago, left knee pain; ambulatory with kwan wrap; reports by the end of the day when I wrap it, my leg and foot is swollen and it hurts so he (PCP) told me to come up and get it drained The patient is a 51 y.o. female who presents today with Knee Pain HPI The patient is a 51-year-old female who fell onto her left knee approximately one month ago. Since then she has had significant knee swelling and moderate pain in the left knee. She is very certain that the swelling began with the fall. She denies having having any fevers, chills, sweats, nausea, vomiting, diarrhea. She does have a slight increase of pain with weightbearing and also experiences worsening pain with flexion of the knee. ??She saw her primary care provider and he sent her here to have her knee drained. She has not been doing any physical therapy. She has been taking ibuprofen for pain Review of Systems Constitutional: Positive for activity change. Negative for fever, chills, diaphoresis and fatigue. Respiratory: Negative. ?? Cardiovascular: Negative. ?? Gastrointestinal: Negative. ?? Genitourinary: Negative. ?? Musculoskeletal: Positive for back pain, joint swelling (left knee), arthralgias and gait problem. Neurological: Negative. ?? Hematological: Negative. ?? Psychiatric/Behavioral: The patient is nervous/anxious. ?? Past Medical History Diagnosis Date ? ? UTI 11/20/99 ? ? Pharyngitis 02/10/00 ? ? Vaginitis 03/03/00 ? ? URI (upper respiratory infection) 08/04/00 ? ? Shoulder pain 01/11/01 ? ? Conjunctivitis 08/24/01 ? ? Sinusitis 10/10/01 ? ? Bronchitis 10/10/01 ? ? Glucosuria 05/01/03 ? ? Pelvic pain in female 10/24/03 ??08/15/08 CT left adnexal mass, 08/23/08 U/S ?left ov cyst/mass, 10/01/08 MRI no masst ? ? Urinary frequency 12/11/03 ? ? Malaise and fatigue 12/11/03 ? ? Chest pain 12/11/03 ??12/20/03 CL=ETT neg ? ? Hip pain 01/11/04 ???trochanteric bursitis ? ? Constipation 03/18/04 ? ? Otalgia 03/18/04 ? ? Abdominal pain 07/27/04 ? ? Fever, unspecified 08/26/04 ? ? Gastroenteritis 09/15/04 ? ? Knee pain 10/03/04 ? ? Retrocalcaneal bursitis (back of heel) 11/25/01 ? ? Dermatophytosis 03/23/05 ? ? Achilles tendonitis 12/04/05 ? ? Pneumonia 04/07/06 ? ? Urinary retention 06/28/08 ? ? Nausea 01/10/09 ? ? Hypotension 02/07/09 ? ? Right knee pain 04/19/09 ??Ortho consult E Clotilde, MRI ? Mensicus tear, recommend PT ? ? Neuralgia, neuritis, and radiculitis, unspecified 11/06/09 ? ? Brachial neuritis or radiculitis NOS 11/06/09 ? ? Laceration 12/26/09 ? ? Dizziness 12/26/09 ? ? Cataract ?? Past Surgical History Procedure Date ? ? Salpingectomy 1981 ??ectopic ? ? Hysterectomy, vaginal ??menorrhagia ? ? Shoulder arthroscopy 10/15 ??left, with acromioplasty ? ? Gastric fundoplication 03/02/07 ??[place] ? ? Cervical spine surgery 12/31/08 ??discectomy, fusion C4-7 Dr Dewitt ? ? Colonoscopy 07/29/09 ??repeat ? Ankle fracture surgery 04/01/10 ??left ankle [facility] ? ? Cyst incision and drainage 09/17/10 ??left cheek ? ? Fine needle aspiration 09/19/10 ??left cheek Allergies Allergen Reactions ? ? Toradol (Ketorolac Tromethamine) Hives ? ? Motrin (Ibuprofen) Itching History Substance Use Topics ? ? Smoking status: Former Smoker -- 0.5 packs/day for 30 years ??Types: Cigarettes ??Quit date: 10/14/2010 ? ? Smokeless tobacco: Never Used ? ? Alcohol Use: No ?? rarely Family History Problem Relation Age of Onset ? ? Cancer Father ?esophageal ? ? Heart Attack Father ? Cataract Father ? Cancer Paternal Aunt ?breast ? ? Migraines Maternal Aunt ? Stroke Maternal Grandmother ? Heart Attack Maternal Grandmother ? Heart Disease Maternal Grandmother ? Cataract Maternal Grandmother ? Cancer Paternal Grandmother ?leukemia ? ? Cataract Mother ? Cataract Maternal Grandfather ?? Vital Signs Temp: 35.6 ??C (96.1 ??F) Temp src: Tympanic Pulse: 71 Resp: 12 SpO2: 99 % SpCO: 2 % BP: 119/66 mmHg O2 Device: None (Room air) Physical Exam Constitutional: She is oriented to person, place, and time. She appears well-developed and well-nourished. HENT: Head: Normocephalic and atraumatic. Cardiovascular: Normal rate. ?? Pulmonary/Chest: Effort normal. Musculoskeletal: ? Her left knee has a 2+ effusion that feels like it is mostly within the knee joint. However she also has significant swelling over the prepatellar bursa. There is no erythema. She is tender to light touch throughout the entire knee. Passive range of motion from zero to approximately 100??. She is stable to varus and valgus stress testing. Her hip and ankle on the left side are within normal limits. Neurological: She is alert and oriented to person, place, and time. Skin: Skin is warm and dry. Psychiatric: She has a normal mood and affect. Her behavior is normal. Thought content normal. Radiology orders: None Arthrocentesis Date/Time: 02/03/2012 14:47 Performed by: JAUN WILLOUGHBY Authorized by: JAUN WILLOUGHBY Consent: Verbal consent obtained. Risks and benefits: risks, benefits and alternatives were discussed Consent given by: patient Patient identity confirmed: verbally with patient Indications: joint swelling and pain Body area: knee Joint: left knee Local anesthesia used: yes Anesthesia: local infiltration Local anesthetic: lidocaine 1% without epinephrine Anesthetic total: 2 ml Patient sedated: no Preparation: Patient was prepped and draped in the usual sterile fashion. Needle gauge: 18 G Approach: lateral Aspirate: blood-tinged and clear Aspirate amount: 60 ml Patient tolerance: Patient tolerated the procedure well with no immediate complications. ED Course: ?? A medical screening exam was performed. 51-year-old female with post traumatic knee effusion and prepatellar bursitis by clinical exam. I doubt this is an infectious cause given her history and the fact that it has been ongoing for months without infectious signs and symptoms. the patient decided to go forth with drainage of the knee effusion as well as prepatellar bursa. The knee effusion was performed as described above. Then the prepatellar bursa was drained as well in the same manner. In addition to the aspiration above I also obtained approximately 80 cc out of the prepatellar bursa of blood-tinged clear fluid. I have placed the patient in a knee immobilizer for the next 4 days. This will hopefully keep the knee from reaccumulating fluid. I have also given her prescription to go home with Vicodin. She has strict instructions to followup with orthopedics in one week. Disposition: No disposition on file The patient's pain was managed to an adequate level weighing risk vs. benefit of further medications. Upon departure from the Emergency Department, the patient's pain was 3 on a zero to ten scale. Condition at departure from the Emergency Department: Stable Discharge Prescriptions New Prescriptions No Discharge Prescriptions for this patient MDM 1. Knee effusion, left ?? 2. Prepatellar bursitis of left knee ?? PCP: ??Jean Munoz MD Maj Eisinger was available for supervision. 02/03/2012 14:43 Procedure Note Hector Willoughbyt - 02/03/2012 14:43 EDT DOS: 02/03/2012 Chief Complaint Patient presents with ? ? Knee Pain s/p fall 1 month ago, left knee pain; ambulatory with kwan wrap; reportsby the end of the day when I wrap it, my leg and foot is swollen and ithurts so he (PCP) told me to come up and get it drained The patient is a 51 y.o. female who presents today with Knee Pain HPI The patient is a 51-year-old female who fell onto her left kneeapproximately one month ago. Since then she has had significant kneeswelling and moderate pain in the left knee. She is very certain that theswelling began with the fall. She denies having having any fevers, chills,sweats, nausea, vomiting, diarrhea. She does have a slight increase ofpain with weightbearing and also experiences worsening pain with flexionof the knee. She saw her primary care provider and he sent her here tohave her knee drained. She has not been doing any physical therapy. Shehas been taking ibuprofen for pain Review of Systems Constitutional: Positive for activity change. Negative for fever, chills,diaphoresis and fatigue. Respiratory: Negative. Cardiovascular: Negative. Gastrointestinal: Negative. Genitourinary: Negative. Musculoskeletal: Positive for back pain, joint swelling (left knee),arthralgias and gait problem. Neurological: Negative. Hematological: Negative. Psychiatric/Behavioral: The patient is nervous/anxious. Past Medical History Diagnosis Date ? ? UTI 11/20/99 ? ? Pharyngitis 02/10/00 ? ? Vaginitis 03/03/00 ? ? URI (upper respiratory infection) 08/04/00 ? ? Shoulder pain 01/11/01 ? ? Conjunctivitis 08/24/01 ? ? Sinusitis 10/10/01 ? ? Bronchitis 10/10/01 ? ? Glucosuria 05/01/03 ? ? Pelvic pain in female 10/24/03 08/15/08 CT left adnexal mass, 08/23/08 U/S ?left ov cyst/mass, 10/01/08MRI no masst ? ? Urinary frequency 12/11/03 ? ? Malaise and fatigue 12/11/03 ? ? Chest pain 12/11/03 12/20/03 CL=ETT neg ? ? Hip pain 01/11/04 ?trochanteric bursitis ? ? Constipation 03/18/04 ? ? Otalgia 03/18/04 ? ? Abdominal pain 07/27/04 ? ? Fever, unspecified 08/26/04 ? ? Gastroenteritis 09/15/04 ? ? Knee pain 10/03/04 ? ? Retrocalcaneal bursitis (back of heel) 11/25/01 ? ? Dermatophytosis 03/23/05 ? ? Achilles tendonitis 12/04/05 ? ? Pneumonia 04/07/06 ? ? Urinary retention 06/28/08 ? ? Nausea 01/10/09 ? ? Hypotension 02/07/09 ? ? Right knee pain 04/19/09 Ortho consult E Clotilde, MRI ? Mensicus tear, recommend PT ? ? Neuralgia, neuritis, and radiculitis, unspecified 11/06/09 ? ? Brachial neuritis or radiculitis NOS 11/06/09 ? ? Laceration 12/26/09 ? ? Dizziness 12/26/09 ? ? Cataract Past Surgical History Procedure Date ? ? Salpingectomy 1982 ectopic ? ? Hysterectomy, vaginal menorrhagia ? ? Shoulder arthroscopy 10/15 left, with acromioplasty ? ? Gastric fundoplication 03/02/07 [place] ? ? Cervical spine surgery 12/31/08 discectomy, fusion C4-7 Dr Dewitt ? ? Colonoscopy 07/29/09 repeat ? ? Ankle fracture surgery 04/01/10 left ankle [facility] ? ? Cyst incision and drainage 09/17/10 left cheek ? ? Fine needle aspiration 09/19/10 left cheek Allergies Allergen Reactions ? ? Toradol (Ketorolac Tromethamine) Hives ? ? Motrin (Ibuprofen) Itching History Substance Use Topics ? ? Smoking status: Former Smoker -- 0.5 packs/day for 30 years Types: Cigarettes Quit date: 10/14/2010 ? ? Smokeless tobacco: Never Used ? ? Alcohol Use: No rarely Family History Problem Relation Age of Onset ? ? Cancer Father esophageal ? ? Heart Attack Father ? ? Cataract Father ? ? Cancer Paternal Aunt breast ? ? Migraines Maternal Aunt ? ? Stroke Maternal Grandmother ? ? Heart Attack Maternal Grandmother ? ? Heart Disease Maternal Grandmother ? ? Cataract Maternal Grandmother ? ? Cancer Paternal Grandmother leukemia ? ? Cataract Mother ? ? Cataract Maternal Grandfather Vital Signs Temp: 35.6 ??C (96.1 ??F) Temp src: Tympanic Pulse: 71 Resp: 12 SpO2: 99 % SpCO: 2 % BP: 119/66 mmHg O2 Device: None (Room air) Physical Exam Constitutional: She is oriented to person, place, and time. She appearswell- developed and well-nourished. HENT: Head: Normocephalic and atraumatic. Cardiovascular: Normal rate. Pulmonary/Chest: Effort normal. Musculoskeletal: Her left knee has a 2+ effusion that feels like it is mostly withinthe knee joint. However she also has significant swelling over theprepatellar bursa. There is no erythema. She is tender to light touchthroughout the entire knee. Passive range of motion from zero toapproximately 100??. She is stable to varus and valgus stress testing. Her hip and ankle on the left side are within normal limits. Neurological: She is alert and oriented to person, place, and time. Skin: Skin is warm and dry. Psychiatric: She has a normal mood and affect. Her behavior is normal.Thought content normal. Radiology orders: None Arthrocentesis Date/Time: 02/03/2012 14:47 Performed by: JAUN WILLOUGHBY Authorized by: JAUN WILLOUGHBY Consent: Verbal consent obtained. Risks and benefits: risks, benefits and alternatives were discussed Consent given by: patient Patient identity confirmed: verbally with patient Indications: joint swelling and pain Body area: knee Joint: left knee Local anesthesia used: yes Anesthesia: local infiltration Local anesthetic: lidocaine 1% without epinephrine Anesthetic total: 2 ml Patient sedated: no Preparation: Patient was prepped and draped in the usual sterilefashion. Needle gauge: 18 G Approach: lateral Aspirate: blood-tinged and clear Aspirate amount: 60 ml Patient tolerance: Patient tolerated the procedure well with no immediatecomplications. ED Course: A medical screening exam was performed. 51-year-old female with posttraumatic knee effusion and prepatellar bursitis by clinical exam. I doubtthis is an infectious cause given her history and the fact that it hasbeen ongoing for months without infectious signs and symptoms. the patientdecided to go forth with drainage of the knee effusion as well asprepatellar bursa. The knee effusion was performed as described above.Then the prepatellar bursa was drained as well in the same manner. Inaddition to the aspiration above I also obtained approximately 80 cc outof the prepatellar bursa of blood-tinged clear fluid. I have placed thepatient in a knee immobilizer for the next 4 days. This will hopefullykeep the knee from reaccumulating fluid. I have also given herprescription to go home with Vicodin. She has strict instructions tofollowup with orthopedics in one week. Disposition: No disposition on file The patient's pain was managed to an adequate level weighing risk vs.benefit of further medications. Upon departure from the EmergencyDepartment, the patient's pain was 3 on a zero to ten scale. Condition at departure from the Emergency Department: Stable Discharge Prescriptions New Prescriptions No Discharge Prescriptions for this patient MDM 1. Knee effusion, left 2. Prepatellar bursitis of left knee PCP: Jean Munoz MD Maj Eisinger was available for supervision. 02/03/2012 14:43 Jaun Willoughby PA-C PROCEDURE/MINOR BELLAMY RGICAL ORDERABLES HC EKG documented in this encounter Visit Diagnoses Diagnosis Knee effusion, left Effusion of lower leg joint Prepatellar bursitis of left knee Prepatellar bursitis [...] MAR Action Action Date Dose Rate Site hydrocodone-acetaminophen (LORTAB;VICODIN) 5-500 mg per tablet 1 Tab 1 Tablet, oral, NOW X1, 1 dose, On Wed02/03/12 at 1500, STAT Given 02/03/2012 14:52 EDT 1 Tablet documented in this encounter Active and Recently Administered Medications Times are shown in EDT. Scheduled Medication Order 02/01/2012 02/02/2012 02/03/2012 hydrocodone-acetaminophen (LORTAB;VICODIN) 5-500 mg per tablet 1 Tab (COMPLETED) 1 Tablet, oral, NOW X1, 1 dose, On Wed02/03/12 at 1500, STAT 1452 (Given - Provid er: Kriss Marshall RN) documented in this encounter Orders Medications Ordered That Victor Manuel ht Not Have Been Administered Count Last Ordered Date First Ordered Date hydrocodone-acetaminophen (L ORTAB;VICODIN) 5-500 mg per tablet 1 Tab 1 02/03/2012 documented in this encounter Care Teams Skiver Counter Relationship Specialty Start Date End Date Jean Munoz MD [address] [place] [id number] PCP - General 12/31/08 Manny Rizzo MD [address] [place] [id number] 04/20/10 documented as of this encounter
--- OUTSIDE RECORDS SUMMARY | 2024-06-10 07:32 | XMS_ITS | Encounter Summary ---
Author Organization [facility] Address [address] [place] [address] Care Team Providers Care E Learning Manager Name Role Phone Jean Munoz MD Primary Care Provider Manny Rizzo MD Unavailable Reason for Visit * Reason Onset Date Comments Medications Refill 02/09/2012 Encounter Details Date Type Department Care Team (Late st Contact Info) Description 02/09/2012 Refill [facility] Sleep [facility] - [address] [id number] Tiana Bcaon [address] [place] [phone] Medications Refill Social History Tobacco Use [...] the morning for narcolepsy. 60 Tab 0 02/09/2012 03/08/2012 methylphenidate (RITALIN;METHYLIN) 10 mg tablet Brand only. Take one tab in the afternoon for narcolepsy 30 Tab 0 02/09/2012 03/08/2012 documented in this encounter Miscellaneous Notes * Telephone Encounter - Corrina Ac RN - 02/10/2012 0905 EDT Called pt and let her know her Ritalin refills ready for pick up worker. * Telephone Encounter - Bambi Zhou - 02/09/2012 0934 EDT Patient needs refill on Ritalin SR and Ritalin 10mg - both need to be name brand. Please call when script is ready patient to pick up worker script. documented in this encounter Plan of Treatment Upcoming Encounters Date Type Department Care Team (Late st Contact Info) Description 06/29/2024 14:15 EDT Office Visit [facility] Medicine [facility] [address] [place] [address] Jean Munoz MD [address] [place] [phone] documented as of this encounter Visit Diagnoses Not on filedocumented in this encounter Discontinued Medications Medication Sig Discontinue Reason Start Date End Da te methylphenidate (RITALIN;METHYLIN) 10 mg tablet Take one tab in the afternoon for narcolepsy Reorder 01/06/2012 02/09/2012 methylphenidate (RITALIN SR; METADATE ER; METHYLIN ER) 20 mg SR tablet Brand only. Please take 2 tabs in the morning for narcolepsy. Reorder 01/06/2012 02/09/2012 documented as of this encounter Care Teams E Learning Manager Relationship Specialty Start Date End Date Jean Munoz MD [address] [place] [phone] PCP - General 12/31/08 Manny Rizzo MD [address] [place] [phone] 04/20/10 documented as of this encounter
--- OUTSIDE RECORDS SUMMARY | 2024-06-10 07:32 | XMS_ITS | Encounter Summary ---
Author Organization [facility] Address [address] [place] [address] Care Team Providers Care Pediatric Critical Care Nurse Name Role Phone Jean Munoz MD Primary Care Provider Manny Rizzo MD Unavailable Reason for Visit * Reason Comments Follow-up Encounter Details Date Type Department Care Team (Late st Contact Info) Description 10/15/2011 10:15 EST Office Visit [facility] [address] [place] [address] Jean Munoz MD [address] [place] [phone] Asthma (Primary Dx); Narcolepsy; Insomnia; Severe major depression without psychotic features ([facility]) Social History Tobacco Use Types Packs/Day Years [...] Sign Reading Time Taken Comments Blood Pressure 122/84 10/15/2011 1018 EST Pulse 100 10/15/2011 1018 EST Temperature 36.4 ??C (97.6 ??F) 10/15/2011 1018 EST Respiratory Rate - - Oxygen Saturation - - Inhaled Oxygen Concentration - - Weight 94 kg (207 lb 4.8 oz) 10/15/2011 1018 EST Height 162.6 cm (5' 4) 10/15/2011 1018 EST Body Mass Index 35.58 10/15/2011 1018 EST documented in this encounter Functional Status [...] bedtime as needed for Sleep. 30 Each 1 10/15/2011 12/09/2011 predniSONE (DELTASONE) 20 mg tabletIndications:Asthma Take 2 Tabs by mouth daily for 5 days. 10 Tab 5 10/15/2011 10/20/2011 documented in this encounter Progress Notes * Jean Munoz MD - 10/15/2011 1031 EST Subjective: Patient ID: Liset Viera is an 50 y.o. female. Chief Complaint Patient presents with ??? Follow-up HPI 1. Saw eye doctor Rosacea in eyes per patient Rx Doxycycline 2. Sleep evaluation No apnea per patient ?depression Referred to Psych but no appointment yet 3. Breathing problems Feels tight +cough ?bronchitis Using inhaler Xopenex On Advair Has had prednisone in past, worked well No TOB Patient Active Problem List Diagnoses ??? Severe [...] bedtime as needed for Sleep. 30 Each 1 ??? methylphenidate (RITALIN;METHYLIN) 10 mg tablet Take one tab in the afternoon for narcolepsy 30Tab 0 ??? methylphenidate (RITALIN SR; METADATE ER; METHYLIN ER) 20 mg SR tablet Brand only. Please take 2 tabs in the morning for narcolepsy. 60 Tab 0 ??? doxycycline (VIBRA-TABS) 100 mg tablet Take 1 Tab by mouth daily. 30 Tab 11 ??? omeprazole (PRILOSEC) 20 mg capsule Take 1 Cap by mouth daily. 90 Each 0 ??? nortriptyline (PAMELOR) 75 mg capsule Take 1 Cap by mouth daily. 30 Each 3 ??? pregabalin (LYRICA) 150 mg capsule TAKE ONE CAPSULE BY MOUTH THREE TIMES A DAY 270 Each 1 ??? baclofen (LIORESAL) 10 mg tablet Take 0.5-1 Tabs by mouth 3 times daily as needed. 90 Tab 3 ??? fexofenadine (JUDITH) 180 mg tablet Take 1 Tab by mouth daily. 90 Each 2 ??? CYCLOSPORINE (RESTASIS OPHT) Apply 1 Drop [...] rarely ROS - See HPI Objective: BP 122/84 Pulse 100 Temp(Src) 36.4 ??C (97.6 ??F) (Oral) Ht 162.6 cm (64) Wt 94.031 kg (207 lb 4.8 oz) BMI 35.58 kg/m2 Physical Exam Nursing note and vitals reviewed. Constitutional: She appears well-nourished. No distress. HENT: Right Ear: External ear normal. Left Ear: External ear normal. Mouth/Throat: No oropharyngeal exudate. Eyes: Conjunctivae are normal. Right eye exhibits no discharge. Left eye exhibits no discharge. Pulmonary/Chest: Effort normal. No respiratory distress. She has no wheezes. She has no rales. decreased breath sounds bilaterally Lymphadenopathy: She has no cervical adenopathy. Assessment: Plan: Liset was seen today for follow-up. Diagnoses and associated orders for this visit: Asthma - predniSONE (DELTASONE) 20 mg tablet; Take 2 Tabs by mouth daily for 5 days. Continue Adviar, Xopenex Narcolepsy F/U per [facility] Insomnia - zolpidem (AMBIEN) 10 mg tablet; Take 1 Tab by mouth at bedtime as needed for Sleep. Severe major depression without psychotic features Psych eval pending Patient Education Topic: as above Method: Verbal Taught to: Patient Barriers: None Outcomes: Verbalized understanding Return in about 1 month (around 11/13/2011) for PE. documented in this encounter Plan of Treatment Upcoming Encounters Date Type Department Care Team (Late st Contact Info) Description 06/29/2024 14:15 EDT Office Visit [facility] [address] [place] [address] Jean Munoz MD [address] [place] [phone] documented as of this encounter Visit Diagnoses Diagnosis Asthma- Primary Unspecified asthma Narcolepsy Narcolepsy without cataplexy Insomnia Insomnia, unspecified Severe major depression without psychotic features ([facility]) Major depressive disorder, single episode, severe, without [...] Tabs by mouth daily for 5 days. Reorder 11/13/2010 10/15/2011 zolpidem (AMBIEN) 10 mg tabletIndications:Insomn ia Take 1 Tab by mouth at bedtime as needed for Sleep. Reorder 07/22/2011 10/15/2011 documented as of this encounter Care Teams Pediatric Critical Care Nurse Relationship Specialty Start Date End Date Jean Munoz MD [address] [place] [phone] PCP - General 12/31/08 Manny Rizzo MD [address] [place] [phone] 04/20/10 documented as of this encounter
--- OUTSIDE RECORDS SUMMARY | 2024-06-10 07:32 | XMS_ITS | Encounter Summary ---
Author Organization [facility] Address [address] [place] [address] Care Team Providers Care Inside Sales Administrator Name Role Phone Jean Munoz MD Primary Care Provider Manny Rizzo MD Unavailable Reason for Visit * Reason Comments Annual Exam Anxiety grinding teeth; BAD anxiety Encounter Details Date Type Department Care Team (Latest Contact Info) Description 12/09/2011 13:15 EDT Office Visit [facility] [address] [place] [address] Jean Munoz MD [address] [place] [phone] Anxiety; Depression; Hot flashes; Low back pain; Degeneration of lumbar or lumbosacral intervertebral disc; Unspecified arthropathy, other unspecified sites; Lumbosacral spondylosis without myelopathy; Thoracic or lumbosacral neuritis or radiculitis, unspecified; Seasonal allergic rhinitis; Insomnia; GERD (gastroesophageal reflux disease) Social History Tobacco Use Types Packs/Day Years [...] Sign Reading Time Taken Comments Blood Pressure 118/66 12/09/2011 1305 EDT Pulse 64 12/09/2011 1305 EDT Temperature 36.5 ??C (97.7 ??F) 12/09/2011 1305 EDT Respiratory Rate - - Oxygen Saturation - - Inhaled Oxygen Concentration - - Weight 94.1 kg (207 lb 6.4 oz) 12/09/2011 1305 E DT Height 162.6 cm (5' 4) 12/09/2011 1305 EDT Body Mass Index 35.6 12/09/2011 1305 EDT documented in this encounter Functional Status Cognitive Status Response Date of Assessm ent Because of a physical, menta l, or emotional condition, do you have serious difficulty concentrating, remembering, or making decisions? (5 years old or older) Yes 09/19/2010 documented as of this encounter Patient Instructions * Patient Instructions* Jean Munoz MD - 12/09/2011 13:19 EDT Please call [phone] to schedule a screening mammogram [employer] Activation Thank you for your interest in Kody Kameron's patient portal, [employer]. Please follow the instructions below to set up your account. [employer] allows you to send messages to your doctor, view your test results, renew your prescriptions, request appointments, pay bills and more. How Do I Sign Up? 1. In your Internet browser, go to [email or web address] 2. Click on the Accept My Invitation Code link in the Set Up an Account box. You will see the page: Accept My Invitation. 3. Enter your [employer] Invitation Code exactly as it appears below. You will not need to use this code after you???ve completed the sign-up process. If you do not sign up before the expiration date, you must request a new code. [employer] Invitation Code: [email or web address] Expires: 02/07/2012 13:20 4. Enter your Date of (mm/dd/yyyy) as indicated and click Next. You will be taken to the nextpage to create your account. 5. Create a [employer] username. This will be your [employer] username and cannot be changed, sothink of one that is secure and easy to remember. 6. Create a [employer] password. You can change your password at any time. Enter your passwordagain to confirm it. 7. Enter your e-mail address. You will receive e-mail notifications when new information is available in [employer]. 8. Enter your security question and answer. These can be used at a later time if you forget your password. 9. Click Create Account. You can now view your medical record and billing information. If you have been granted proxy access to another patient's chart, you will see that patient listed under Family Records when you log into your [employer] account. Additional Information If you have questions, you can email or call to talk to our [employer] Customer Service Center, which is open 24 hours a day, 7 days a week. Remember, [employer] is NOT to be used for urgent needs. For medical emergencies, dial 9-1-1. documented in this encounter Ordered Prescriptions Prescription Sig Dispensed Refills Start Date End Da te lorazepam (ATIVAN) 0.5 mg TabIndications:Anxiety Take 1 Tab by mouth every 6 hours as needed (anxiety). 30 Each 0 12/09/2011 12/22/2011 zolpidem (AMBIEN) 10 mg tabletIndications:Insomn ia Take 1 Tab by mouth at bedtime as needed for Sleep. 30 Each 2 12/09/2011 03/08/2012 sertraline (ZOLOFT) 100 mg tabletIndications:Depres meño Take 2 Tabs by mouth daily. 180 Tab 5 12/09/2011 11/24/2012 omeprazole (PRILOSEC) 20 mg capsuleIndications:Insom yesi Take 1 Cap by mouth daily. 90 Cap 4 12/09/2011 11/24/2012 nortriptyline (PAMELOR) 75 mg capsuleIndications:Depre ssion Take 1 Cap by mouth daily. 30 Each 4 12/09/2011 11/24/2012 mometasone (NASONEX) 50 mcg/actuation nasal sprayIndications:Seasona l allergic rhinitis 2 Sprays by Nasal route daily. 3 Inhaler 4 12/09/2011 11/24/2012 fexofenadine (JUDITH) 180 mg tabletIndications:Season al allergic rhinitis Take 1 Tab by mouth daily. 90 Each 4 12/09/2011 11/24/2012 baclofen (LIORESAL) 10 mg tabletIndications:Low back pain Take 0.5-1 Tabs by mouth 3 times daily as needed. 90 Tab 4 12/09/2011 11/24/2012 documented in this encounter Progress Notes * Jean Munoz MD - 12/09/2011 1316 EDT Subjective: Patient ID: Liset Viera is an 51 y.o. female. Chief Complaint Patient presents with ??? Annual Exam ??? Anxiety grinding teeth; BAD anxiety HPI See Health Care Questionnaire for details and ROS. 1. Patient declines PE today +anxiety over mother's illness Worried about her depression and anxiety Mother was given lorazepam prn, Mothers sister has POA Mother has given consent for patient to discuss with providers Has been on sedative in past, very anxious, edgy Trouble sleeping Hot flashes, onset in last few months Already on Zoloft Patient Active Problem List Diagnoses ??? Severe [...] Ankle fracture surgery 04/01/10 left ankle [facility] ??? Cyst incision and drainage [...] daily as needed. 90 Tab 4 ??? nortriptyline (PAMELOR) 75 mg capsule [...] Narrative from Valente (ETOH)Son Alexi and Daughter StaceyniferCurrently living alone in [facility] - See HPI Objective: BP 118/66 Pulse 64 Temp(Src) 36.5 ??C (97.7 ??F) (Oral) Ht 162.6 cm (64) Wt 94.076 kg (207lb 6.4 oz) BMI 35.60 kg/m2 Physical Exam deferred Assessment: Plan: Liset was seen today for annual exam and anxiety. Diagnoses and associated orders for this visit: Anxiety - lorazepam (ATIVAN) 0.5 mg Tab; Take 1 Tab by mouth every 6 hours as needed (anxiety). Depression - nortriptyline (PAMELOR) 75 mg capsule; Take 1 Cap by mouth daily. - sertraline (ZOLOFT) 100 mg tablet; Take 2 Tabs by mouth daily. Hot flashes Low back pain - baclofen (LIORESAL) 10 mg tablet; Take 0.5-1 Tabs by mouth 3 times daily as needed. Degeneration of lumbar or lumbosacral intervertebral disc Unspecified arthropathy, other unspecified sites Lumbosacral spondylosis without myelopathy Thoracic or lumbosacral neuritis or radiculitis, unspecified Seasonal allergic rhinitis - fexofenadine (JUDITH) 180 mg tablet; Take 1 Tab by mouth daily. - mometasone (NASONEX) 50 mcg/actuation nasal spray; 2 Sprays by Nasal route daily. Insomnia - zolpidem (AMBIEN) 10 mg tablet; Take 1 Tab by mouth at bedtime as needed for Sleep. Gerd (gastroesophageal reflux disease) - omeprazole (PRILOSEC) 20 mg capsule; Take 1 Cap by mouth daily. Patient Education Topic: as above Method: Verbal Taught to: Patient Barriers: None Outcomes: Verbalized understanding Return in about 2 weeks (around 12/23/2011) for reschedule PE. documented in this encounter Plan of Treatment Upcoming Encounters Date Type Department Care Team (Late st Contact Info) Description 06/29/2024 14:15 EDT Office Visit [facility] [address] [place] [address] Jean Munoz MD [address] [place] [phone] documented as of this encounter Visit Diagnoses Diagnosis Anxiety Anxiety state, unspecified Depression Depressive disorder, not elsewhere classified Hot flashes Symptomatic menopausal or female climacteric states Low back pain Lumbago Degeneration of lumbar or lumbosacral intervertebral disc Arthropathy, unspecified, other specified sites Lumbosacral spondylosis without myelopathy Thoracic or lumbosacral neuritis or radiculitis, unspecified Seasonal allergic rhinitis Allergic rhinitis, cause unspecified Insomnia Insomnia, unspecified GERD (gastroesophageal reflux disease) Esophageal reflux Screening for osteoporosis- Primary Special [...] te baclofen (LIORESAL) 10 mg tabletIndications:Low back pain,Degeneration of lumbar or lumbosacral intervertebral disc,Arthropathy, unspecified, other specified sites,Lumbosacral spondylosis without myelopathy,Thoracic or lumbosacral neuritis or radiculitis, unspecified Take 0.5-1 Tabs by mouth 3 times daily as needed. Reorder 03/20/2011 12/09/2011 fexofenadine (JUDITH) 180 mg tabletIndications:Seasonal allergic rhinitis Take 1 Tab by mouth daily. Reorder 01/21/2011 12/09/2011 mometasone (NASONEX) 50 mcg/Actuation nasal spray 2 Sprays by Nasal route daily. Reorder 11/13/2010 12/09/2011 nortriptyline (PAMELOR) 75 mg capsule Take 1 Cap by mouth daily. Reorder 08/10/2011 12/09/2011 omeprazole (PRILOSEC) 20 mg capsule Take 1 Cap by mouth daily. Reorder 09/01/2011 12/09/2011 sertraline (ZOLOFT) 100 mg tablet Take 1.5 Tabs by mouth daily. Reorder 11/13/2010 12/09/2011 zolpidem (AMBIEN) 10 mg tabletIndications:Insomnia Take 1 Tab by mouth at bedtime as needed for Sleep. Reorder 10/15/2011 12/09/2011 documented as of this encounter Care Teams Inside Sales Administrator Relationship Specialty Start Date End Date Jean Munoz MD [address] [place] [address] PCP - General 12/31/08 Manny Rizzo MD [address] [place] [address] 04/20/10 documented as of this encounter
--- OUTSIDE RECORDS SUMMARY | 2024-06-10 07:32 | XMS_ITS | Encounter Summary ---
Author Organization [facility] Address [address] [place] [address] Care Team Providers Care Aircrewman Name Role Phone Jean Munoz MD Primary Care Provider Manny Rizzo MD Unavailable Encounter Details Date Type Department Care Team (Late st Contact Info) Description 07/23/2011 Abstract [facility] [address] [place] [address] Jean Munoz MD [address] [place] [phone] Social History Tobacco Use Types [...] [facility] [address] [place], [place] [phone] Jean Munoz MD [address] [place] [phone] documented as of this encounter Visit Diagnoses Not on filedocumented in this encounter Care Teams Aircrewman Relationship Specialty Start Date End Date Jean Munoz MD [address] [place] [phone] PCP - General 12/31/08 Manny Rizzo MD [address] [place] [address] 04/20/10 documented as of this encounter
--- OUTSIDE RECORDS SUMMARY | 2024-06-10 07:32 | XMS_ITS | Encounter Summary ---
Author Organization [facility] Address [address] [place] [address] Care Team Providers Care Route Process Administrator Name Role Phone Jean Munoz MD Primary Care Provider Manny Rizzo MD Unavailable Reason for Visit * Reason Onset Date Comments Appointment Related 01/06/2012 needs appt Medications Refill 01/06/2012 Ritalin 20 mg SR 2 in AM and 10 mg, 1 in PM, needs 30 day supply, brand specific for 20 mg Encounter Details Date Type Department Care Team (Late st Contact Info) Description 01/06/2012 Telephone [facility] - [address] [phone] Tiana Bacon [address] [place] [phone] Appointment Related (needs appt); Medications Refill (Ritalin 20 mg SR 2 in AM and 10 mg, 1 in PM, needs 30 day supply, brand specific for 20 mg) Social History Tobacco Use Types Packs/Day Years [...] for narcolepsy 30 Tab 0 01/06/2012 02/09/2012 documented in this encounter Miscellaneous Notes * Telephone Encounter - Corrina Ac RN - 01/06/2012 1020 EDT Pt to bead picker her ritalin refills tomorrow morning, follow-up appt scheduled with for March (per [facility] reminder). documented in this encounter Plan of Treatment Upcoming Encounters Date Type Department Care Team (Late st Contact Info) Description 06/29/2024 14:15 EDT Office Visit [facility] [address] [place] [address] Jean Munoz MD [address] [place] [phone] documented as of this encounter Visit Diagnoses Not on filedocumented in this encounter Discontinued Medications Medication Sig Discontinue Reason Start Date End Da te methylphenidate (RITALIN;METHYLIN) 10 mg tablet Take one tab in the afternoon for narcolepsy Reorder 12/09/2011 01/06/2012 methylphenidate (RITALIN SR; METADATE ER; METHYLIN ER) 20 mg SR tablet Brand only. Please take 2 tabs in the morning for narcolepsy. Reorder 12/09/2011 01/06/2012 documented as of this encounter Care Teams Route Process Administrator Relationship Specialty Start Date End Date Jean Munoz MD [address] [place] [phone] PCP - General 12/31/08 Manny Rizzo MD [address] [place] [phone] 04/20/10 documented as of this encounter
--- OUTSIDE RECORDS SUMMARY | 2024-06-10 07:32 | XMS_ITS | Encounter Summary ---
Author Organization [facility] Address [address] [place] [address] Care Team Providers Care Shoeblack Name Role Phone Jean Munoz MD Primary Care Provider Manny Rizzo MD Unavailable Reason for Visit * Reason Comments Follow-up Encounter Details Date Type Department Care Team (Late st Contact Info) Description 08/10/2011 13:15 EST Office Visit [facility] [address] [place] [address] Jean Munoz MD [address] [place] [phone] Insomnia (Primary Dx); Narcolepsy; Hot flashes; Irritable bowel syndrome (IBS) Social History Tobacco Use Types Packs/Day Years [...] Reading Time Taken Comments Blood Pressure 112/70 08/10/2011 1313 EST Pulse 70 08/10/2011 1313 EST Temperature 36.1 ??C (97 ??F) 08/10/2011 1313 EST Respiratory Rate - - Oxygen Saturation - - Inhaled Oxygen Concentration - - Weight 93 kg (205 lb) 08/10/2011 1313 EST Height 162.6 cm (5' 4) 08/10/2011 1313 EST Body Mass Index 35.19 08/10/2011 1313 EST documented in this encounter Functional Status Cognitive Status Response Date of Assessm ent Because of a physical, menta l, or emotional condition, do you have serious difficulty concentrating, remembering, or making decisions? (5 years old or older) Yes 09/19/2010 documented as of this encounter Ordered Prescriptions Prescription Sig Dispensed Refills Start Date End Da te nortriptyline (PAMELOR) 75 mg capsule Take 1 Cap by mouth daily. 30 Each 3 08/10/2011 12/09/2011 documented in this encounter Progress Notes * Jean Munoz MD - 08/10/2011 1332 EST Subjective: Patient ID: Liset Viera is an 50 y.o. female. Chief Complaint Patient presents with ??? Follow-up HPI See encounter summary 1. Hot flashes Still present S/p hysterectomy On Zoloft and tricyclic 2. Abdominal pain See most recent note No change Labs normal On Nortriptyline Willing to increase Patient Active Problem List Diagnoses ??? Severe [...] both eyes ??? Senile nuclear sclerosis ??? Unspecified tear film insufficiency ??? Seasonal allergic rhinitis ??? Lumbar radicular pain ??? Hot flashes ??? Irritable bowel syndrome (IBS) Past Medical History Diagnosis Date ??? UTI [...] Right knee pain 04/19/09 Ortho consult [facility], MRI ? Mensicus tear, recommend PT ??? [...] needed for Constipation. Allergies Allergen Reactions ??? Motrin (Ibuprofen) Itching ??? Toradol (Ketorolac Tromethamine) Hives Social History Substance Use Topics ??? Smoking status: Former Smoker -- 0.5 packs/day for 30 years Types: Cigarettes Quit date: 10/14/2010 ??? Smokeless tobacco: Never Used ??? Alcohol Use: No rarely ROS - See HPI Objective: BP 112/70 Pulse 70 Temp(Src) 36.1 ??C (97 ??F) (Oral) Ht 162.6 cm (64) Wt 92.987 kg (205 lb) BMI 35.19 kg/m2 Physical Exam deferred Assessment: Plan: Liset was seen today for follow-up. Diagnoses and associated orders for this visit: Insomnia Ambien prn Narcolepsy F/U per Sleep CLinic Hot flashes Continue SSRI, tricyclic Will monitor Irritable bowel syndrome (ibs) Increase Nortriptyline to 75 mg - nortriptyline (PAMELOR) 75 mg capsule; Take 1 Cap by mouth daily. Patient Education Topic: as above Method: Verbal Taught to: Patient Barriers: None Outcomes: Verbalized understanding Return in about 2 months (around 10/22/2011) for SERA. documented in this encounter Miscellaneous Notes * Assessment & Plan Note - Jean Munoz MD - 08/10/2011 1336 EST Associated Problem(s): Narcolepsy As noted above * Assessment & Plan Note - Jean Munoz MD - 08/10/2011 1336 EST Associated Problem(s): Insomnia Had sleep study last week, results pending [facility] Sleep [facility] aware that she takes Ambien (not referenced in notes) documented in this encounter Plan of Treatment Upcoming Encounters Date Type Department Care Team (Late st Contact Info) Description 06/29/2024 14:15 EDT Office Visit [address] [address] Jean Munoz MD [address] [place] [address] documented as of this encounter Visit Diagnoses Diagnosis Insomnia- Primary Insomnia, unspecified Narcolepsy Narcolepsy without cataplexy Hot flashes Symptomatic menopausal or female climacteric states Irritable bowel syndrome (IBS) Irritable bowel syndrome Screening for osteoporosis- Primary Special screening [...] Discontinue Reason Start Date End Da te nortriptyline (PAMELOR) 50 mg capsule Take 1 Cap by mouth at bedtime. Dose adjustment 04/20/2011 08/10/2011 documented as of this encounter Care Teams Shoeblack Relationship Specialty Start Date End Date Jean Munoz MD [address] [place] [address] PCP - General 12/31/08 Manny Rizzo MD [address] [place] [address] 04/20/10 documented as of this encounter
--- OUTSIDE RECORDS SUMMARY | 2024-06-10 07:32 | XMS_ITS | Encounter Summary ---
Author Organization [facility] Address [address] [place] [address] Care Team Providers Care Crap Game Box Person Name Role Phone Jean Munoz MD Primary Care Provider Manny Rizzo MD Unavailable Reason for Visit * Reason Onset Date Comments Medications Refill 08/31/2011 Encounter Details Date Type Department Care Team (Late st Contact Info) Description 08/31/2011 Refill [facility] [address] [place], [place] [phone] Jean Munoz MD [address] [place] [address] Medications Refill Social History Tobacco [...] Migraine for 1 dose. 9 Each 2 09/01/2011 01/07/2012 omeprazole (PRILOSEC) 20 mg capsule Take 1 Cap by mouth daily. 90 Each 0 09/01/2011 12/09/2011 documented in this encounter Miscellaneous Notes * Telephone Encounter - Iraida Bishop - 08/31/2011 1215 EST Last visit 08/10/11 Next visit 10/15/11 Out Yes documented in this encounter Plan of Treatment Upcoming Encounters Date Type Department Care Team (Late st Contact Info) Description 06/29/2024 14:15 EDT Office Visit [facility] [address] [place] [address] Jean Munoz MD [address] [place] [address] documented as of this encounter Visit Diagnoses Not on filedocumented in this encounter Discontinued Medications Medication Sig Discontinue Reason Start Date End Da te omeprazole (PRILOSEC) 20 mg capsule TAKE ONE CAPSULE BY MOUTH EVERY DAY Reorder 05/19/2011 08/31/2011 sumatriptan (IMITREX) 50 mg tablet TAKE 1 TABLET BY MOUTH ONCE NEEDED FOR MIGRAINE Reorder 02/18/2011 08/31/2011 documented as of this encounter Care Teams Crap Game Box Person Relationship Specialty Start Date End Date Jean Munoz MD [address] [place] [address] PCP - General 12/31/08 [place] [address] [place] [phone] 04/20/10 documented as of this encounter
--- OUTSIDE RECORDS SUMMARY | 2024-06-10 07:32 | XMS_ITS | Encounter Summary ---
Author Organization [facility] Address [address] [place] [address] Care Team Providers Care Weatherization Administrator Name Role Phone Jean Munoz MD Primary Care Provider Manny Rizzo MD Unavailable Reason for Visit * Reason Onset Date Comments Medications Refill 11/23/2011 Encounter Details Date Type Department Care Team (Late st Contact Info) Description 11/23/2011 Refill [facility] [address] [place], [place] [phone] Jean Munoz MD [address] [place] [address] Medications Refill Social History Tobacco [...] te levalbuterol (XOPENEX HFA) 45 mcg/actuation inhaler Inhale 1-2 Puffs as directed every 4 hours as needed for Wheezing. 3 Inhaler 3 11/23/2011 11/24/2012 documented in this encounter Miscellaneous Notes * Telephone Encounter - Luis Rodriguez - 11/24/2011 0907 EDT [facility] 10/15/2011 xopenex refill e scripted. * Telephone Encounter - Iraida Bishop - 11/23/2011 1540 EDT Liset is calling because she needs her Xopenex refilled. * Telephone Encounter - Feli Preston - 11/23/2011 1403 EDT Rivas from [facility] in [facility] requesting a refill of patients xopenex. Medication pended. documented in this encounter Plan of Treatment Upcoming Encounters Date Type Department Care Team (Late st Contact Info) Description 06/29/2024 14:15 EDT Office Visit [facility] [address] [place] [address] Jean Munoz MD [address] [place] [phone] documented as of this encounter Visit Diagnoses Not on filedocumented in this encounter Discontinued Medications Medication Sig Discontinue Reason Start Date End Da te levalbuterol (XOPENEX HFA) 45 mcg/Actuation inhaler Inhale 1-2 Puffs as directed every 4 hours as needed for Wheezing. Reorder 11/13/2010 11/23/2011 documented as of this encounter Care Teams Weatherization Administrator Relationship Specialty Start Date End Date Jean Munoz MD [address] [place] [phone] PCP - General 12/31/08 Manny Rizzo MD [address] [place] [phone] 04/20/10 documented as of this encounter
--- OUTSIDE RECORDS SUMMARY | 2024-06-10 07:32 | XMS_ITS | Encounter Summary ---
Author Organization [facility] Address [address] [place] [address] Care Team Providers Care Technical Instructor Course Developer Name Role Phone Jean Munoz MD Primary Care Provider Manny Rizzo MD Unavailable Encounter Details Date Type Department Care Team (Late st Contact Info) Description 01/14/2012 Phlebotomy Only [facility] [address] [place], [place] [phone] [place] [employer], Outpatient Dry eyes, bilateral Social History Tobacco Use Types Packs/Day Years [...] Office Visit [facility] [address] [place] [address] Jean Munoz MD [address] [place] [address] documented as of this encounter Procedures Procedure Name Priority Date/Time Associated Diagnosis Comments THYROID CASCADE Routine 01/14/2012 13:18 EDT Dry eyes, bilateral SSA/SSB Routine 01/14/2012 13:18 EDT Dry eyes, bilateral ANTI NUCLEAR AB (HERMES), IFA Routine 01/14/2012 13:18 EDT Dry eyes, bilateral documented in this encounter Results * THYROID CASCADE (01/14/2012 13:18 EDT) TSH 1.84 0.35 - 5.00 uIU/ml [facility] Comment: TSH cascade is not recommended for patients in which pituitary or hypothalamic disorders are suspected. Blood specimen (specimen) 01/14/2012 13:18 EDT 01/14/2012 14:08 EDT Giovanni Rodriguez MD CHEMISTRY & BLOOD G ORDERABLES [facility] [address] [place] [address] * SSA/SSB (01/14/2012 13:18 EDT) SS A/Ro Ab, IgG, S <0.2 <1.0 (Negative) U [facility] SS B/La Ab, IgG, S <0.2 <1.0 (Negative) [facility] Comment: Performed by: [facility] [employer] [place], [address], [place] [address], Back End Architect: Liset Dick, Ph.D. Blood specimen (specimen) 01/14/2012 13:18 EDT 01/14/2012 14:08 EDT Giovanni Rodriguez MD CHEMISTRY & BLOOD G ORDERABLES Performing Organization Address [facility] Co de Phone Number [facility] [address] [place] [address] * ANTI NUCLEAR ANTIBODY (01/14/2012 13:18 EDT) Anti Nuclear Ab <40 0 - 40 [facility] Blood specimen (specimen) 01/14/2012 13:18 EDT 01/14/2012 14:08 EDT Giovanni Rodriguez MD IMMUNOLOGY AND SERO LOGY ORDERABLES Performing Organization Address [facility] Co de Phone Number [facility] [address] [place] [address] documented in this encounter Visit Diagnoses Diagnosis Dry eyes, bilateral Tear film insufficiency, unspecified Screening for osteoporosis- Primary Special screening for osteoporosis Primary narcolepsy without cataplexy Chronic pain syndrome Chronic low back pain Lumbago Chronic use of opiate for therapeutic purpose Pain medication agreement Encounter for long-term (current) use of other medications Screen for colon cancer Special screening for malignant neoplasms, colon documented in this encounter Care Teams Technical Instructor Course Developer Relationship Specialty Start Date End Date Jean Munoz MD [address] [place] [phone] PCP - General 12/31/08 Manny Rizzo MD [address] [place] [phone] 04/20/10 documented as of this encounter
--- OUTSIDE RECORDS SUMMARY | 2024-06-10 07:33 | XMS_ITS | Encounter Summary ---
Author Organization [facility] Address [address] [place] [address] Care Team Providers Care Banquet Attendant Name Role Phone Jean Munoz MD Primary Care Provider Manny Rizzo MD Unavailable Reason for Visit * Reason Comments Other Encounter Details Date Type Department Care Team (Late st Contact Info) Description 05/19/2011 [facility] [address] [place] [address] Jean Munoz MD [address] [place] [phone] Other Social History Tobacco Use Types [...] BY MOUTH EVERY DAY 90 Each 0 05/19/2011 08/31/2011 documented in this encounter Plan of Treatment Upcoming Encounters Date Type Department Care Team (Late st Contact Info) Description 06/29/2024 14:15 EDT Office Visit [facility] [address] [place], [place] [phone] Jean Munoz MD [address] [place] [phone] documented as of this encounter Visit Diagnoses Not on filedocumented in this encounter Discontinued Medications Medication Sig Discontinue Reason Start Date End Da te omeprazole (PRILOSEC OTC) 20 mg tabletIndications:GERD (gastroesophageal reflux disease) Take 1 Tab by mouth daily. Reorder 04/20/2011 05/19/2011 documented as of this encounter Care Teams Banquet Attendant Relationship Specialty Start Date End Date Jean Munoz MD [address] [place] [phone] PCP - General 12/31/08 Manny Rizzo MD [address] [place] [phone] 04/20/10 documented as of this encounter
--- OUTSIDE RECORDS SUMMARY | 2024-06-10 07:33 | XMS_ITS | Encounter Summary ---
Author Organization [facility] Address [address] [place] [address] Care Team Providers Care Offset Proof Press Operator Name Role Phone Jean Munoz MD Primary Care Provider Manny Rizzo MD Unavailable Reason for Visit * Reason Onset Date Comments Medications Refill 12/01/2010 Encounter Details Date Type Department Care Team (Late st Contact Info) Description 12/01/2010 Refill [facility] Sleep [facility] - [address] [phone] Corrina Ac, RN [address] [place] [address] Medications Refill Social History Tobacco Use Types [...] Refills Start Date End Da te methylphenidate (RITALIN) 10 mg tabletIndications:Narcole psy Take 1 Tab by mouth. Take 1 tablet at noon 30 Tab 0 12/01/2010 12/08/2010 methylphenidate (RITALIN SR; METADATE ER; METHYLIN ER) 20 mg SR tabletIndications:Narcole psy Take 2 Tabs by mouth. in the morning at 8:00am 60 Tab 0 12/01/2010 12/08/2010 documented in this encounter Miscellaneous Notes * Telephone Encounter - Corrina Ac RN - 12/01/2010 3159 EDT Opened a new encounter for Ritalin refills, original request from [facility] and will not print at [facility]. documented in this encounter Plan of Treatment Upcoming Encounters Date Type Department Care Team (Late st Contact Info) Description 06/29/2024 14:15 EDT Office Visit [facility] [address] [place] [address] Jean Munoz MD [address] [place] [phone] documented as of this encounter Visit Diagnoses Diagnosis Narcolepsy- Primary Narcolepsy without cataplexy Screening for osteoporosis- [...] METADATE ER; METHYLIN ER) 20 mg SR tabletIndications:Narcol epsy Take 2 Tabs by mouth. in the morning at 8:00am Reorder 12/01/2010 12/01/2010 methylphenidate (RITALIN) 10 mg tabletIndications:Narcol epsy Take 1 Tab by mouth. Take 1 tablet at noon Reorder 12/01/2010 12/01/2010 documented as of this encounter Care Teams Offset Proof Press Operator Relationship Specialty Start Date End Date Jean Munoz MD [address] [place] [phone] PCP - General 12/31/08 Manny Rizzo MD [address] [place] [phone] 04/20/10 documented as of this encounter
--- OUTSIDE RECORDS SUMMARY | 2024-06-10 07:33 | XMS_ITS | Encounter Summary ---
Author Organization [facility] Address [address] [place] [address] Care Team Providers Care Insole Toe Snipping Machine Operator Name Role Phone Jean Munoz MD Primary Care Provider Manny Rizzo MD Unavailable Reason for Visit * Reason Onset Date Comments Medications Refill 03/20/2011 Encounter Details Date Type Department Care Team (Late st Contact Info) Description 03/20/2011 Refill [facility] [address] [place], [place] [phone] [place] [address] [place] [address] Medications Refill Social History Tobacco Use Types [...] Dispensed Refills Start Date End Da te baclofen (LIORESAL) 10 mg tabletIndications:Low back pain,Degeneration of lumbar or lumbosacral intervertebral disc,Arthropathy, unspecified, other specified sites,Lumbosacral spondylosis without myelopathy,Thoracic or lumbosacral neuritis or radiculitis, unspecified Take 0.5-1 Tabs by mouth 3 times daily as needed. 90 Tab 3 03/20/2011 12/09/2011 documented in this encounter Miscellaneous Notes * Telephone Encounter - Antonella Manriquez - 04/01/2011 0959 EDT APPT SCHED * Telephone Encounter - Nikita Clark RN - 03/26/2011 0856 EDT RN notified patient that med was e-scripted for her and if she does not want to come for f/u appt q6 mos that she should contact her PCP. Pt states that she would like to schedule repeat injection. Advised that PSS will call her with an appt. * Telephone Encounter - Nikita Clark RN - 03/20/2011 1435 EDT RN called patient to see where she would like a one month supply e-scripted to. Advised she should contact PCP to write for this med in future so her PCP is managing her meds. documented in this encounter Plan of Treatment Upcoming Encounters Date Type Department Care Team (Late st Contact Info) Description 06/29/2024 14:15 EDT Office Visit [address] [address] Jean Munoz MD [address] [place] [address] documented as of this encounter Visit Diagnoses Diagnosis Low back pain Lumbago Degeneration of lumbar or lumbosacral intervertebral disc Arthropathy, unspecified, other specified sites Lumbosacral spondylosis without myelopathy Thoracic or lumbosacral neuritis or radiculitis, unspecified Screening for osteoporosis- Primary Special screening [...] mouth 3 times daily as needed. Reorder 11/12/2010 03/20/2011 documented as of this encounter Care Teams Insole Toe Snipping Machine Operator Relationship Specialty Start Date End Date Jean Munoz MD [address] [place] [phone] PCP - General 12/31/08 Manny Rizzo MD [address] [place] [address] 04/20/10 documented as of this encounter
--- OUTSIDE RECORDS SUMMARY | 2024-06-10 07:33 | XMS_ITS | Encounter Summary ---
Author Organization [facility] Address [address] [place] [address] Care Team Providers Care Cutch Cleaner Name Role Phone Jean Munoz MD Primary Care Provider Manny Rizzo MD Unavailable Reason for Visit * Reason Comments Diplopia Patient complaint of diplopia (horizontal and verticle). Pain in eyes and blurred vision. Patient with history of migraines, ocular and headache. Patient is using preserved artificial tears 5x daily. Encounter Details Date Type Department Care Team (Late st Contact Info) Description 12/10/2010 13:00 EDT Office Visit [facility] - [address] [phone] Giovanni Rodriguez MD [address] [facility], Level [address] [place] [address] Social History Tobacco Use Types [...] Dispensed Refills Start Date End Da te cyclosporin (RESTASIS) 0.05 % ophthalmic emulsion Place 1 Drop into both eyes 2 times daily. 2 Package 12 12/10/2010 01/21/2011 documented in this encounter Progress Notes * Giovanni Rodriguez MD - 12/14/2010 3966 EDT DIVISION OF OPHTHALMOLOGY [facility] December 10, 2010 Ahmet Weiss MD [facility] - Ophthalmology [address] [place] [address] Weiss: I had the privilege of seeing Liset Viera today. She was seen because in September, she started to notice intermittent horizontal double vision lasting five to ten minutes at a time primarily deepti by extended periods of close work or concentration. She gets rid of it by closing her eyes and resting them for a bit and then things improve. This can happen any time of the day. She may wake up with this or it can occur throughout the day. She denies any trauma or surgery to around the eyes. She has tried closing one eye or the other andthen she has single vision. She is followed by Dr Mik Caban for narcolepsy. She has also been seen by ENT and infectious disease because of a facial abscess and that occurred in September 2010. On examination, her vision is 20/25 and 20/20, improves to a perfect 20/20 and 20/15 with slight change I hyperopic correction. At near, she reads [place] 1+. She has 50 seconds of stereopsis. This is just one short of chief pilot depth perception. The pupils are equal and without afferent defect. The left pupil is only slightly larger than the right. Ocular motility is remarkably unremarkable, that is, she is total orthophoric at distance and near and in all positions of gaze. Smooth pursuit and saccades and opticokinetic nystagmus are all completely normal. Convergence is normal. Slit lamp examination anterior segment shows absolutely no Meibomian gland secretions. There is also some stain with Lissamine green and a rapid breakup of the tear film time. The cornea is clear. The anterior chamber is deep and quiet and the iris is normal. She has just had benefit of a dilated examination by you, Dr Weiss, so I defer you that. I did examine with a 78 diopter lens. Each optic nerve is pink and healthy. The cup-to-disc ratio is about 0.3 to 0.4. The vessels are normal and there are no vasculopathic changes. A Britney's tear test was done. She did not wet the strips at all in five minutes. The patient has a history of intermittent double vision. This is brought on at near primarily. I believe that she has dry eyes and I think this may account for a lot of the discomfort and burning that she has as well as some of the blurred vision. With that in mind, I have ordered some treatments including Restasis one drop twice a day to each eye, artificial tears several times a day and starting [place]-3 such as flaxseed oil twice a day. I will see her in six weeks. If, in fact, this does not improve her symptomatology, I will then order some thyroid studies as well as a myosthenic panel. I would hold on neural imaging unless there is more apparent motility abnormality. I think, first, we should direct our attention to the surface abnormalities and then decideabout subsequent investigations. She did have benefit of a CT scan of the facial bones. I will look at that in the interval to make sure that there are not any abnormalities in the extraocular muscles that we might detect with that scan alone. In summary, I will see her in six weeks and we will consider additional laboratory and imaging studies, but we will try to treat what I believe is the most likely cause for her blurring and burning and, probably, her intermittent double vision. Sincerely, Electronically Signed by Giovanni Rodriguez MD 12/14/2010 14:56 Chitra Jeffrey MD - Giovanni Rodriguez MD - WP Job ID: SM Doc ID: [id number] Ext Doc ID: [id number] cc: MD Jean Piper MD Harold H Morris, III, MD George K Philips, MD * Giovanni Rodriguez MD - 12/10/2010 1540 EDT This office note has been dictated. See scanned document. documented in this encounter Miscellaneous Notes * Scanned Note-Null - Inpatient, Physician - 12/11/2010 1503 EDT documented in this encounter Plan of Treatment Upcoming Encounters Date Type Department Care Team (Late st Contact Info) Description 06/29/2024 14:15 EDT Office Visit [facility] [address] [place] [address] Jean Munoz MD [address] [place] [address] documented as of this encounter Visit Diagnoses Diagnosis Diplopia- Primary Dry eyes Tear film insufficiency, unspecified Pain in or around eye Screening for osteoporosis- Primary Special screening for osteoporosis Primary narcolepsy without cataplexy Chronic pain syndrome Chronic low back pain Lumbago Chronic use of opiate for therapeutic purpose Pain medication agreement Encounter for long-term (current) use of other medications Screen for colon cancer Special screening for malignant neoplasms, colon documented in this encounter Historical Medications * This list may reflect changes made after this encounter. Medication Sig Dispensed Refills Start Date End Date hydroxypropyl methylcellulose (ISOPTO TEARS) 0.5 % ophthalmic solution Place 1 Drop into both eyes 5 times daily. 12/10/2010 10/06/2023 added in this encounter Eye Exam Visual Acuity (Snellen - Linear) Right eye Left eye Dist cc 20/25 +1 20/20 Near cc J1 J1 Correction: Glasses Tonometry (Applanation, 13:56 RILEY) Right eye Left eye Pressure 12 12 Pupils Dark Light React APD Right eye 5 2 Brisk None Left eye 6 3 Brisk None Per PA pupils equal, no RAPD Visual Wolf Right eye Left eye Full Full Extraocular Movement Right eye Left eye Full, Ortho Full, Ortho 3 Prism Diopter Esophoria at distance with current correction. Normal OKN. NL pursuits and saccades. PA Neuro/Psych Oriented x3: Yes Mood/Affect: Normal Amsler Right eye Left eye Normal Normal Color Right eye Left eye AO PIP 10.5/14 07/27 Stereo Fly: + Circles: 8 Lan sec Slit Lamp Exam Right eye Left eye Lids/Lashes Blepharitis Blepharitis Conjunctiva/Sclera 1+ Injection, Trace LG Stain 1+ Injection Cornea TBUT 4 TBUT 4 Anterior Chamber Deep and quiet Deep and quiet Iris Round and reactive Round and hitesh ctive Schirmers Anesthesia: Yes Wearing Rx Sphere Cylinder Add Right eye +1.25 Sphere +1.50 Left eye +1.25 Sphere +1.50 Age: 3yrs Type: Bifocal Manifest Refraction Sphere Cylinder Dist VA Add Near VA Right eye +1.50 Sphere 20/20 +2.00 J1+ Left eye +1.50 Sphere 20/15 +2.00 J1+ Care Teams Cutch Cleaner Relationship Specialty Start Date End Date Jean Munoz MD [address] [place] [phone] PCP - General 12/31/08 Manny Rizzo MD [address] [place] [phone] 04/20/10 documented as of this encounter
--- OUTSIDE RECORDS SUMMARY | 2024-06-10 07:33 | XMS_ITS | Encounter Summary ---
Author Organization [facility] Address [address] [place] [address] Care Team Providers Care Black Powder Glazing Operator Name Role Phone eJan Munoz MD Primary Care Provider Manny Rizzo MD Unavailable Reason for Visit * Reason Comments Pain follow up Encounter Details Date Type Department Care Team (Late st Contact Info) Description 01/21/2011 14:45 EDT Office Visit [facility] [address] [place], [place] [phone] Jean Munoz MD [address] [place] [phone] Chronic back pain (Primary Dx); Asthma; Seasonal allergic rhinitis; Migraine; Insomnia Discharge Disposition: Auto Discharge Social History [...] Sign Reading Time Taken Comments Blood Pressure 116/78 01/21/2011 1523 EDT Pulse 82 01/21/2011 1523 EDT Temperature 36.3 ??C (97.4 ??F) 01/21/2011 1523 EDT Respiratory Rate - - Oxygen Saturation - - Inhaled Oxygen Concentration - - Weight 90.7 kg (200 lb) 01/21/2011 1523 EDT Height 162.6 cm (5' 4) 01/21/2011 1523 EDT Body Mass Index 34.33 01/21/2011 1523 EDT documented in this encounter Functional Status Cognitive Status Response Date of Assessm ent Because of a physical, menta l, or emotional condition, do you have serious difficulty concentrating, remembering, or making decisions? (5 years old or older) Yes 09/19/2010 documented as of this encounter Ordered Prescriptions Prescription Sig Dispensed Refills Start Date End Da te amitriptyline (ELAVIL) 50 mg tabletIndications:Chronic back pain,Migraine Take 1 Tab by mouth at bedtime as needed for Sleep. 90 Tab 3 01/21/2011 04/20/2011 fexofenadine (JUDITH) 180 mg tabletIndications:Seasona l allergic rhinitis Take 1 Tab by mouth daily. 90 Each 2 01/21/2011 12/09/2011 documented in this encounter Discharge Disposition Disposition Code Departure Means Destination Auto Discharge documented in this encounter Progress Notes * Jean Munoz MD - 01/21/2011 1532 EDT Subjective: Patient ID: Liset Viera is an 50 y.o. female. Chief Complaint Patient presents with ??? Pain follow up HPI 1. Back pain Amitriptyline now 25 mg Had dry mouth, but improving Helps with sleep Pain no change No F/U Pain Clinic yet, patient states she will call 2. Asthma OK now Uses fexofenadine for allergies Needs refill Also Nasonex 3. Migraines doing not too bad Imitrex 3/month 4. Insomnia - better overall on Amitripytline Ambien occasionally, 2x/week 5. Saw eye doctor, has dry eyes Patient Active Problem List Diagnoses Code ??? Allergic Rhinitis 477.9AD ??? Severe Major Depression without Psychotic Features 296.23A ??? GERD (Gastroesophageal Reflux Disease) 530.81S ??? Chronic Back Pain 724.5AW ??? Obesity 278.00M ??? Cervicalgia 723.1 ??? Impaired Glucose Tolerance 790.22S ??? Migraine 346.90A ??? Peptic Ulcer Disease 533.90U ??? Asthma 493.90AE ??? Restless Leg Syndrome 333.94J ??? Insomnia 780.52A ??? Narcolepsy 347.00B ??? Hip Pain 719.45F ??? Chronic Knee Pain 719.46X ??? Tobacco Abuse 305.1U ??? Degeneration of cervical intervertebral disc 722.4 ??? Anxiety 300.00E ??? Routine health maintenance V72.9C ??? Ankle fracture, right 824.8AG ??? Fatty liver 571.8D ??? Leg edema 782.3V ??? Chronic pain 338.29A ??? Arthritis 716.90R ??? Cervical spondylosis 721.0D ??? Abscess of face 682.0A ??? Vitreous syneresis 379.24N ??? Diplopia 368.2 ??? Blepharitis of both eyes 373.00P ??? Senile nuclear sclerosis 366.16 ??? Unspecified tear film insufficiency 375.15 ??? Seasonal allergic rhinitis 477.9A Past Medical History Diagnosis Date ??? UTI [...] MRI ? Mensicus tear, recommend PT ??? Unspecified neuralgia, neuritis, and radiculitis 11/06/09 ??? Brachial neuritis or radiculitis NOS 11/06/09 ??? Laceration 12/26/09 ??? Dizziness 12/26/09 ??? Cataract Current outpatient prescriptions ordered prior to encounter Medication Sig Dispense Refill ??? amitriptyline (ELAVIL) 50 mg tablet Take 1 Tab by mouth at bedtime as needed for Sleep. 90 Tab 3 ??? methylphenidate (RITALIN) 10 mg tablet Take 1 Tab by mouth. Take 1 tablet at noon 30 Tab 0 ??? methylphenidate (RITALIN SR; METADATE ER; METHYLIN ER) 20 mg SR tablet Take 2 Tabs by mouth. inthe morning at 8:00am 60 Tab 0 ??? CYCLOSPORINE (RESTASIS OPHT) Apply to eye. [...] Nasal route daily. 3 Inhaler 3 ??? pregabalin (LYRICA) 150 mg capsule Take 1 Cap by mouth 3 times daily. 270 Cap 3 ??? promethazine (PHENERGAN) 25 mg tablet Take 1 Tab by mouth every 6 hours as needed for Nausea. 45 Each 3 ??? ropinirole (REQUIP) 2 mg tablet Take 1 Tab by mouth at bedtime. 90 Each 3 ??? sertraline (ZOLOFT) 100 mg tablet Take 1.5 Tabs by mouth daily. 135 Tab 3 ??? sumatriptan (IMITREX) 50 mg tablet Take 1 Tab by mouth once as needed for Migraine for 1 dose. Gets 9 tabs a month and uses them all 9 Tab 3 ??? zolpidem (AMBIEN) 10 mg tablet Take 1 Tab by mouth at bedtime as needed for Sleep. 30 Each 5 ??? baclofen (LIORESAL) 10 mg tablet Take 0.5-1 Tabs by mouth 3 times daily as needed. 90 Tab 3 ??? docusate sodium (COLACE) 100 [...] rarely ROS - See HPI Objective: BP 116/78 Pulse 82 Temp(Src) 36.3 ??C (97.4 ??F) (Oral) Ht 162.6 cm (64) Wt 90.719 kg (200lb) BMI 34.33 kg/m2 Physical Exam deferred Assessment: Plan: Liset was seen today for pain. Diagnoses and associated orders for this visit: Chronic back pain - Increase amitriptyline (ELAVIL) 50 mg tablet; Take 1 Tab by mouth at bedtime as needed for Sleep. Asthma Stable Seasonal allergic rhinitis - fexofenadine (JUDITH) 180 mg tablet; Take 1 Tab by mouth daily. Migraine Insomnia - Improving on amitriptyline Return in about 3 months (around 04/23/2011) for SERA. documented in this encounter Plan of Treatment Upcoming Encounters Date Type Department Care Team (Late st Contact Info) Description 06/29/2024 14:15 EDT Office Visit [facility] [address] [place] [address] Jean Munoz MD [address] [place] [phone] documented as of this encounter Visit Diagnoses Diagnosis Chronic back pain- Primary Backache, unspecified Asthma Unspecified asthma Seasonal allergic rhinitis Allergic rhinitis, cause unspecified Migraine Migraine, unspecified, without mention of intractable migraine without mention of status migrainosus Insomnia Insomnia, unspecified Screening for osteoporosis- Primary [...] Discontinue Reason Start Date End Da te cyclosporin (RESTASIS) 0.05 % ophthalmic emulsion Place 1 Drop into both eyes 2 times daily. 01/21/2011 01/21/2011 hydrocodone-acetaminophe n (LORTAB;VICODIN) 5-500 mg per tablet Take 1 Tab by mouth every 6 hours as needed for Pain. 10/29/2010 01/21/2011 varenicline (CHANTIX) 1 mg tabletIndications:Tobacc o abuse Take 1 Tab by mouth 2 times daily. 08/11/2010 01/21/2011 amitriptyline (ELAVIL) 25 mg tabletIndications:Chroni c back pain Take 1 Tab by mouth at bedtime as needed for Sleep. Reorder 12/11/2010 01/21/2011 documented as of this encounter Care Teams Black Powder Glazing Operator Relationship Specialty Start Date End Date Jean Munoz MD [address] [place] [phone] PCP - General 12/31/08 Manny Rizzo MD [address] [place] [address] 04/20/10 documented as of this encounter
--- OUTSIDE RECORDS SUMMARY | 2024-06-10 07:33 | XMS_ITS | Encounter Summary ---
Author Organization [facility] Address [address] [place] [address] Care Team Providers Care Concrete Analyst Name Role Phone Jean Munoz MD Primary Care Provider Manny Rizzo MD Unavailable Encounter Details Date Type Department Care Team (Late st Contact Info) Description 05/06/2011 Abstract Used for ABSTRACTING Data [phone] Giovanni Rodriguez MD [address] [facility] [address] [place] [address] Social History Tobacco Use Types [...] EDT Office Visit [facility] [address] [place] [address] Jean Munoz MD [address] [place] [phone] documented as of this encounter Visit Diagnoses Not on filedocumented in this encounter Care Teams Concrete Analyst Relationship Specialty Start Date End Date Jean Munoz MD [address] [place] [phone] PCP - General 12/31/08 Manny Rizzo MD [address] [place] [address] 04/20/10 documented as of this encounter
--- OUTSIDE RECORDS SUMMARY | 2024-06-10 07:33 | XMS_ITS | Encounter Summary ---
Author Organization [facility] Address [address] [place] [address] Care Team Providers Care Manager Surgical Name Role Phone Jean Munoz MD Primary Care Provider Manny Rizzo MD Unavailable Reason for Visit * Reason Comments Other Encounter Details Date Type Department Care Team (Late st Contact Info) Description 12/28/2010 [facility] [address] [place] [address] Jean Munoz MD [address] [place] [phone] Other Social History Tobacco Use Types [...] encounter Miscellaneous Notes * Telephone Encounter - Manjinder Deidre - 2010 1536 EDT [place] 12/19/10 [place] 01/08/11 documented in this encounter Plan of Treatment Upcoming Encounters Date Type Department Care Team (Late st Contact Info) Description 06/29/2024 14:15 EDT Office Visit [facility] [address] [place] [address] Jean Munoz MD [address] [place] [phone] documented as of this encounter Visit Diagnoses Not on filedocumented in this encounter Care Teams Manager Surgical Relationship Specialty Start Date End Date Jean Munoz MD [address] [place] [phone] PCP - General 12/31/08 Manny Rizzo MD [address] [place] [phone] 04/20/10 documented as of this encounter
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
--- OUTSIDE RECORDS SUMMARY | 2024-06-10 07:33 | XMS_ITS | Encounter Summary ---
Author Organization [facility] Address [address] [place] [address] Care Team Providers Care Non Categorical Preschool Teacher Name Role Phone Jean Munoz MD Primary Care Provider Manny Rizzo MD Unavailable Reason for Visit * Reason Onset Date Comments Medications Refill 12/08/2010 Encounter Details Date Type Department Care Team (Late st Contact Info) Description 12/08/2010 Refill [facility] - [address] [phone] Corrina Ac, RN [address] [place] [address] Medications Refill Social History Tobacco Use Types [...] the morning at 8:00am 60 Tab 0 12/08/2010 01/01/2011 methylphenidate (RITALIN) 10 mg tabletIndications:Narcole psy Take 1 Tab by mouth. Take 1 tablet at noon 30 Tab 0 12/08/2010 01/01/2011 documented in this encounter Miscellaneous Notes * Telephone Encounter - Corrina Ac RN - 12/09/2010 1118 EDT Old prescriptions returned by mail today by postal service 'unable to deliver.' Shredded. * Telephone Encounter - Corrina Ac RN - 12/09/2010 0838 EDT Spoke with pt, she still has not received prescriptions. signed new set of prescriptions for pt to picked edge sewing machine operator today. Pt agreed to mail back prescriptions to if received in mail. * Telephone Encounter - Corrina Ac RN - 12/08/2010 1043 EDT Pt called and stated she has not received her medication refills of Ritalin SR 20mg and Ritalin 10mg in the mail- mailed on 12/02/10 to her home, her pharmacy does not have. To make aware. Pt asking to picked edge sewing machine operator prescriptions tomorrow and if receives other set will send back to us for destruction. documented in this encounter Plan of Treatment Upcoming Encounters Date Type Department Care Team (Late st Contact Info) Description 06/29/2024 14:15 EDT Office Visit [facility] [address] [place] [address] Jean Munoz MD [address] [place] [phone] documented as of this encounter Visit Diagnoses [...] Take 1 tablet at noon Reorder 12/01/2010 12/08/2010 methylphenidate (RITALIN SR; METADATE ER; METHYLIN ER) 20 mg SR tabletIndications:Narcol epsy Take 2 Tabs by mouth. in the morning at 8:00am Reorder 12/01/2010 12/08/2010 documented as of this encounter Care Teams Non Categorical Preschool Teacher Relationship Specialty Start Date End Date Jean Munoz MD [address] [place] [phone] PCP - General 12/31/08 Manny Rizzo MD [address] [place] [phone] 04/20/10 documented as of this encounter
--- OUTSIDE RECORDS SUMMARY | 2024-06-10 07:33 | XMS_ITS | Encounter Summary ---
Author Organization [facility] Address [address] [place] [address] Care Team Providers Care Bowling Or Skating Front Desk Clerk Name Role Phone Jean Munoz MD Primary Care Provider Manny Rizzo MD Unavailable Reason for Visit * Reason Onset Date Comments Prior Auth, Medication 04/29/2011 Fexofenad ine 180 mg Encounter Details Date Type Department Care Team (Late st Contact Info) Description 04/29/2011 Telephone [facility] [address] [place] [address] Jean Munoz MD [address] [place] [phone] Prior Auth, Medication (Fexofenadine 180 mg ) Social History Tobacco Use Types Packs/Day [...] * Telephone Encounter - Eliza Rust - 04/29/2011 1133 EDT Called pt back and relayed the message and she states she has tried the Loratadine (claritan) 4-5 years ago and it didn't work so she was put on the fexofenadine (Jesusita) and has been using that since. I told her she would still need to try the cetirizine OTC (Zyrtec) now that it is avaiable before they will pay for any Loratadine. The patient stated that the reason she needs the Jesusita is because she can't afford to purchase the OTC medications. I suggested she look into [employer] since they sell it in large quantities for cheaper. This is not one of the medications that the [facility] lists on their Program Cards. * Telephone Encounter - Jean Munoz MD - 04/29/2011 1117 EDT Please call patient to let her know insurance requires trial of loratidine or cetirizine before covering fexofenadine, thanks * Telephone Encounter - Eliza Rust - 04/29/2011 1038 EDT We received a fax for a prior authorization request for pt's Fexofenadine 180 mg tab. Due to the insurance the criteria states: CRITERIA FOR APPROVAL: FEXOFENADINE ??? The diagnosis or indication for the requested medication is allergic rhinitis or chronic idiopathic urticaria. AND ??? The patient has had a documented side effect, allergy, or treatment failure to loratadine (OTC)AND cetirizine (OTC). I do not see any documentation (needed) of pt trying loratadine or cetirizine and failing nor do I see the see either of the diagnosis stated in the criteria. Please advise. documented in this encounter Plan of Treatment Upcoming Encounters Date Type Department Care Team (Late st Contact Info) Description 06/29/2024 14:15 EDT Office Visit [facility] [address] [place] [address] Jean Munoz MD [address] [place] [phone] documented as of this encounter Visit Diagnoses Not on filedocumented in this encounter Care Teams Bowling Or Skating Front Desk Clerk Relationship Specialty Start Date End Date Jean Munoz MD [address] [place] [phone] PCP - General 12/31/08 Manny Rizzo MD [address] [place] [address] 04/20/10 documented as of this encounter
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
--- OUTSIDE RECORDS SUMMARY | 2024-06-10 07:33 | XMS_ITS | Encounter Summary ---
Author Organization [facility] Address [address] [place] [address] Care Team Providers Care Armament Aircraft Mechanic Name Role Phone Jean Munoz MD Primary Care Provider Manny Rizzo MD Unavailable Reason for Visit * Reason Comments Other Encounter Details Date Type Department Care Team (Late st Contact Info) Description 06/15/2011 [facility] [address] [place] [address] Jean Munoz MD [address] [place] [phone] Other Social History Tobacco Use Types [...] encounter Miscellaneous Notes * Telephone Encounter - Jasmin Mario - 06/15/2011 0921 EDT Request: nortriptyline and zolpidem [facility]: 8 NOV: 07.21.11 Out of med: no. Both filled at [facility] for 30 days, 2 refills, which will last patient until Jul07.21.11. Outcome: called pharmacy. They did not have either script on file. Phoned in nortriptyline script dated 04.20.11 (originally e-scribed) with comment to stop amitriptyline. Pharmacist did not have zolpidem script either, but this was a printed script so need to contact patient as she should have enough medication until JUL. Patient confirms she turned in script to [facility] and her bottle at home indicates she has one refill left. Returned call to [facility] who did find script in inactive files. It looks as though patienthad tried to fill early a couple of days ago and insurance declined it making it inactive. The nortriptyline was inactive as well. Both scripts dated 04.20.11 and pharmacist will void the script this RN called in for nortriptyline dated 8.8 as it already was on file. She may fill now and pharmacy will have them all prepared for patient. Notified patient. She will take meds as prescribed and f/u as scheduled. documented in this encounter Plan of Treatment Upcoming Encounters Date Type Department Care Team (Late st Contact Info) Description 06/29/2024 14:15 EDT Office Visit [facility] [address] [place] [address] Jean Munoz MD [address] [place] [phone] documented as of this encounter Visit Diagnoses Not on filedocumented in this encounter Care Teams Armament Aircraft Mechanic Relationship Specialty Start Date End Date Jean Munoz MD [address] [place] [address] PCP - General 12/31/08 Manny Rizzo MD [address] [place] [phone] 04/20/10 documented as of this encounter
--- OUTSIDE RECORDS SUMMARY | 2024-06-10 07:33 | XMS_ITS | Encounter Summary ---
Author Organization [facility] Address [address] [place] [address] Care Team Providers Care Maintenance Analyst Name Role Phone Jean Munoz MD Primary Care Provider Manny Rizzo MD Unavailable Reason for Visit * Reason Comments Follow-up 3 months , H/O dry e ye, some redness , some dryness , crusty ,vision is stable , H/o migraines ,h/o vertical diplopia Encounter Details Date Type Department Care Team (Late st Contact Info) Description 05/12/2011 14:00 EDT Office Visit [facility] Ophthalmology - [address] [phone] Giovanni Rodriguez MD [address] [place] [address] Social History Tobacco Use Types [...] Progress Notes * Giovanni Rodriguez MD - 05/12/2011 1527 EDT Base Ophthalmology Exam Visual Acuity Right Left Dist cc 20/25 20/20 Dist ph cc NI Near cc J1 J1 Method: Snellen - Linear Correction: Glasses Wearing Rx Sphere Cylinder [place] Add Right +1.25 +0.25 087 +1.50 Left +1.25 +0.25 094 +1.50 Age: 3yrs Type: Bifocal Stereo Fly: - Circles: 100 secs Pupils Dark Light React APD Right 4 2 Brisk None Left 4 2 Brisk None Comments: Pupils checked by GANESH - Visual Wolf Right Left Result Full Full Extraocular Movement Right Left Result Full Full Base Ophthalmology Exam Addl. Tests Amsler Right Left Amsler Wavy lines Wavy lines Comments: Lower area lines are wavy horizontially both I am scribing for Giovanni Rodriguez MD while he is personally performing the service. CARSON MOSES 05/12/2011 15:27 This note has been Scanned. Diplopia better. Only Intermittent. About 1 diopter esophoria to esotropia. Dry eyes continue to bother. Continue present treatment and add sterilid documented in this encounter Miscellaneous Notes * Scanned Note-Null - Wes, Track Repair Person - 05/13/2011 1125 EDT documented in this encounter Plan of Treatment Upcoming Encounters Date Type Department Care Team (Late st Contact Info) Description 06/29/2024 14:15 EDT Office Visit [facility] [address] [place] [address] Jean Munoz MD [address] [place] [phone] documented as of this encounter Visit Diagnoses Diagnosis Tear film insufficiency, unspecified- Primary Migraine Migraine, unspecified, without mention of intractable migraine without mention of status migrainosus Diplopia Screening for osteoporosis- Primary Special screening [...] eye Left eye Dist cc 20/25 20/20 Dist ph cc NI Near cc J1 J1 Correction: Glasses Pupils Dark Light React APD Right eye 4 2 Brisk None Left eye 4 2 Brisk None Pupils checked by GANESH - Visual Wolf Right eye Left eye Full Full Extraocular Movement Right eye Left eye Full Full Neuro/Psych Oriented x3: Yes Mood/Affect: Normal Amsler Right eye Left eye Wavy lines Wavy lines Lower area lines are wavy horizontially both Color Right eye Left eye AOPIP 08/26 Stereo Fly: - Circles: 100 secs Slit Lamp Exam Right eye Left eye Lids/Lashes Decreased MGS; ocular rosacea De creased MGS; ocular rosacea Conjunctiva/Sclera 1+ stain with l.g. 1+ stain w ith l.g. Cornea Clear; no stain; TBUT 6 Clear; n o stain; TBUT 6 Anterior Chamber Deep and quiet Deep and quiet Iris Round and reactive; Round and re active Wearing Rx Sphere Cylinder [place] Add Right eye +1.25 +0.25 087 +1.50 Left eye +1.25 +0.25 094 +1.50 Age: 3yrs Type: Bifocal Care Teams Maintenance Analyst Relationship Specialty Start Date End Date Jean Munoz MD [address] [place] [phone] PCP - General 12/31/08 Manny Rizzo MD [address] [place] [phone] 04/20/10 documented as of this encounter
--- OUTSIDE RECORDS SUMMARY | 2024-06-10 07:33 | XMS_ITS | Encounter Summary ---
Author Organization [facility] Address [address] [place] [address] Care Team Providers Care Hydraulic Governor Assembler Name Role Phone Jean Munoz MD Primary Care Provider Manny Rizzo MD Unavailable Reason for Visit * Reason Comments Back Pain low back pain Encounter Details Date Type Department Care Team (Latest Contact Info) Description 04/20/2011 11:15 EDT Office Visit [facility] Interventional Pain [address] [place] [address] Puja Salvador MD Ivie, Clarence, DO [address] [facility] [address] [place] [address] [place] [address] Lumbar radicular pain (Primary Dx); Chronic back pain Social History [...] Sign Reading Time Taken Comments Blood Pressure 113/70 04/20/2011 1221 EDT Pulse 68 04/20/2011 1221 EDT Temperature 35.9 ??C (96.6 ??F) 04/20/2011 1105 EDT Respiratory Rate 16 04/20/2011 1221 EDT Oxygen Saturation - - Inhaled Oxygen Concentration - - Weight 86.2 kg (190 lb) 04/20/2011 1105 EDT Height 162.6 cm (5' 4) 04/20/2011 1105 EDT Body Mass Index 32.61 04/20/2011 1105 EDT documented in this encounter Functional Status Cognitive Status Response Date of Assessm ent Because of a physical, menta l, or emotional condition, do you have serious difficulty concentrating, remembering, or making decisions? (5 years old or older) Yes 09/19/2010 documented as of this encounter Patient Instructions * Patient Instructions* Telma Jones - 04/20/2011 11:55 EDT [facility] [address] [phone] Patient Instructions You have had your lumbar [...] your block, please call Patient Education Topic: L4-5 epidural steroid injection Method: Handout and Verbal Taught to: Patient Barriers: None Outcomes: independent and verbalized understanding Signature:Telma Jones documented in this encounter Progress Notes * Lj Mitchell - 04/20/2011 1229 EDT Patient Name: Liset Viera : 1960 Date of Service: 04/20/2011 [place] Underwriter: Ho Holt DO Cloth Covered Helmet Puller: Fernando Mitchell MD Procedure: Lumbar epidural steroid injection at L4-L5 and L5-S1 Interval History: Ms. Viera presents at the request of Jean Munoz for evaluation and treatment of her chronic low back pain. The pain is primarily localized to the bilateral low back and radiates to the bilateral legs. The average pain intensity is 7/10 and is aggravated by standing, walking and beling in one position for too long including laying. changing positions, stretching, applying heat alleviates the pain. Associated symptoms include numbness of the top of the left foot. This patient's was still not able to get an MRI , unfortunately for unknown reasons this was denied by the pt's insurance company. She continues to have B/L LBP with radiating pain to the LE B/L L>R. The pain radiates down the posterior aspct of the left thigh and crosses anteriorly down the butler to the top of the foot. In the right leg the pain travels down the posterior aspect of the thighand terminates at the knee.Her last inj gave her 50%pain relief that lasted 2 months. Says her radicular pain is more painful to her than her LBP. Allergies: Allergies Allergen Reactions ??? Toradol (Ketorolac Tromethamine) Hives ??? Motrin (Ibuprofen) Itching ROS: ROS: Patient denies fevers, chills, nausea, vomiting, chest pain, shortness of breath, bowel or bladder dysfunction, or bleeding diathesis. Physical Exam: Vital signs: Patient Vitals in the past 24 hrs: BP Temp Temp src Pulse Resp Height Weight 04/20/11 1221 113/70 mmHg - - 68 16 - - 04/20/11 1105 105/62 mmHg 35.9 ??C (96.6 ??F) Tympanic 85 16 162.6 cm (64) 86.183 kg (190 lb) General:awake, alert, orientedX3 and no apparent distress Musculoskeletal: Gait: Mildly antalgic, Lumbar Spine: paraspinal tenderness at the left lower levels and Patricks is positive on the left, Patricks is positive on the right, SLT is positive on the left at 60 degrees and SLT is positive on the right Neuro: Strength Exam: bilateral Plantar Flexion and Dorsiflexion 5/5 Sensory Exam: decrease in L4-L5 dermatome when comparted to Rt side Assessment: 1. Encounter Diagnoses Name Primary? Lumbar radicular pain Yes ??? Chronic back pain Plan: Proceed with LESI at L4-L5 and L5-S1 Followup: as needed for possible repeat injection in 2 months Given pt sensory abnormality in her feet would suggest she does get an MRI of Lumbar sacral spine. Pt has an apt with her PCP today and would ask that she brings this up with him. Continue current medication regimen (amitryptline and lyrica) PROCEDURE: The patient gave informed written consent to [...] sterile technique was maintained throughout the procedure. A mckee moment was performed with full staff present to identify the patient,verify the procedure being performed, and review allergies. Fluoroscopy was used to visualize the L4-L5 and L5-S1 disc space. The skin and subcutaneous tissue over this level was anesthetized by infiltration of 2% lidocaine. An 18 guage touhy needle was inserted under fluoroscopic guidance by coaxial technique and advanced towards the interspace. Loss of resistance with normal saline was used to find the epidural space. One pass was required and there wasno paresthesia. Contrast dye was injected under live fluoroscopy demonstrating a typical epidural pattern with no evidence of intravascular or intrathecal injection. After negative aspiration, 80 mg Depo-Medrol and 2 cc of NS and no local anesthetic were injected. The needle was then flushed and wit hdrawn. The patient tolerated the procedure well, there were no apparent complications, and she was discharged in stable condition. Written and verbal discharge instructions were reviewed with the patient prior to discharge. Lj Mitchell MD 04/20/2011 12:23 Attending attestation: I saw and examined the patient with the resident/fellow. I agree with the findings and plan of care documented in the resident's/fellow's note. In addition, I was present and participated during the entire procedure. Ho Holt MD * Telma Jones - 04/20/2011 1109 EDT [facility] Rooming Note Does patient have a Medical Librarian? yes Is patient NPO? (Solids since midnight [...] Miscellaneous Notes * Scanned Note-Null - Wes, Invoice Machine Operator - 04/21/2011 1517 EDT documented in this encounter Plan of Treatment Upcoming Encounters Date Type Department Care Team (Late st Contact Info) Description 06/29/2024 14:15 EDT Office Visit [facility] [address] [place], [place] [phone] Jean Munoz MD [address] [place] [address] documented as of this encounter Visit Diagnoses Diagnosis Lumbar radicular pain- Primary Thoracic or lumbosacral neuritis or radiculitis, unspecified Chronic back pain Backache, unspecified Screening for osteoporosis- Primary Special screening for osteoporosis Primary narcolepsy without cataplexy Chronic pain syndrome Chronic low back pain Lumbago Chronic use of opiate for therapeutic purpose Pain medication agreement Encounter for long-term (current) use of other medications Screen for colon cancer Special screening for malignant neoplasms, colon documented in this encounter Care Teams Hydraulic Governor Assembler Relationship Specialty Start Date End Date Jean Munoz MD [address] [place] [address] PCP - General 12/31/08 Manny Rizzo MD [address] [place] [phone] 04/20/10 documented as of this encounter
--- OUTSIDE RECORDS SUMMARY | 2024-06-10 07:33 | XMS_ITS | Encounter Summary ---
Author Organization [facility] Address [address] [place] [address] Care Team Providers Care Health Center Manager Name Role Phone Jean Munoz MD Primary Care Provider Manny Rizzo MD Unavailable Reason for Visit * Reason Onset Date Comments Medications Refill 02/24/2011 Encounter Details Date Type Department Care Team (Late st Contact Info) Description 02/24/2011 Refill [facility] Neurology - [address] [phone] Mik Caban MD [address] [place] [phone] Medications Refill Social History Tobacco Use [...] by mouth. at noon. 30 Tab 0 02/24/2011 03/24/2011 methylphenidate (RITALIN SR; METADATE ER; METHYLIN ER) 20 mg SR tabletIndications:Narcole psy Take 2 Tabs by mouth. in the morning at 8:00am 60 Tab 0 02/24/2011 03/24/2011 documented in this encounter Miscellaneous Notes * Telephone Encounter - Corrnia Ac RN - 02/24/2011 1520 EDT Called pt and let her know her Ritalin prescription refills are ready for picker tender helper. Pt stated she will be in tomorrow to picker tender helper. * Telephone Encounter - Elizabeth Oreilly - 02/24/2011 1315 EDT Refill requested for Ritalin SR 20mg - Takes 2 at 8am and Ritalin 10mg - Takes 1 at 1pm. Needs to picker tender helper script here LAUREN - will be out of meds by the weekend. Please call when ready. Do not mail since her mail has been stolen by people that she is buying the trailor from. documented in this encounter Plan of Treatment Upcoming Encounters Date Type Department Care Team (Late st Contact Info) Description 06/29/2024 14:15 EDT Office Visit [facility] [address] [place], [place] [phone] Jean Munoz MD [address] [place] [phone] documented as of this encounter Visit Diagnoses [...] mouth. in the morning at 8:00am Reorder 01/29/2011 02/24/2011 methylphenidate (RITALIN) 10 mg tabletIndications:Narcol epsy Take 1 Tab by mouth. Take 1 tablet at noon Reorder 01/29/2011 02/24/2011 documented as of this encounter Care Teams Health Center Manager Relationship Specialty Start Date End Date Jean Munoz MD [address] [place] [address] PCP - General 12/31/08 Manny Rizzo MD [address] [place] [address] 04/20/10 documented as of this encounter
--- OUTSIDE RECORDS SUMMARY | 2024-06-10 07:33 | XMS_ITS | Encounter Summary ---
Author Organization [facility] Address [address] [place] [address] Care Team Providers Care Shirt Bander Name Role Phone Jean Munoz MD Primary Care Provider Manny Rizzo MD Unavailable Reason for Visit * Reason Onset Date Comments Medications Refill 07/21/2011 Encounter Details Date Type Department Care Team (Late st Contact Info) Description 07/21/2011 Refill [facility] - [address] [phone] Tiana Bacon [address] [place] [phone] Medications Refill Social History Tobacco Use [...] the morning for narcolepsy. 60 Tab 0 07/21/2011 08/17/2011 methylphenidate (RITALIN;METHYLIN) 10 mg tablet Take one tab in the afternoon for narcolepsy 30 Tab 0 07/21/2011 08/17/2011 documented in this encounter Miscellaneous Notes * Telephone Encounter - Corrina Ac RN - 07/21/2011 1116 EST Called pt and let her know I will call her tomorrow after signs prescriptions so she can picking crew supervisor. Apologized for the inconvenience. Pt agreeable, has enough med for tomorrow. * Telephone Encounter - Duy Booth - 07/21/2011 0950 EST Liset would like to picking crew supervisor the new RX today. Please call her when ready [phone]. * Telephone Encounter - Duy Booth - 07/21/2011 0929 EST Calling to let you know they are unable to fill the RX for Ritalin SR 20 and Ritalin 10 because of your Medicaid provider ID status. Can you ask another provider to send in these refills? documented in this encounter Plan of Treatment Upcoming Encounters Date Type Department Care Team (Late st Contact Info) Description 06/29/2024 14:15 EDT Office Visit [facility] Medicine [facility] [address] [place] [address] Jean Munoz MD [address] [place] [address] documented as of this encounter Visit Diagnoses Not on filedocumented in this encounter Discontinued Medications Medication Sig Discontinue Reason Start Date End Da te methylphenidate (RITALIN;METHYLIN) 10 mg tablet Take one tab in the afternoon for narcolepsy Reorder 07/20/2011 07/21/2011 methylphenidate (RITALIN SR; METADATE ER; METHYLIN ER) 20 mg SR tablet Brand only. Please take 2 tabs in the morning for narcolepsy. Reorder 07/20/2011 07/21/2011 documented as of this encounter Care Teams Shirt Bander Relationship Specialty Start Date End Date Jean Munoz MD [address] [place] [phone] PCP - General 12/31/08 Manny Rizzo MD [address] [place] [phone] 04/20/10 documented as of this encounter
--- OUTSIDE RECORDS SUMMARY | 2024-06-10 07:33 | XMS_ITS | Encounter Summary ---
Author Organization [facility] Address [address] [place] [address] Care Team Providers Care Wastewater Project Manager Name Role Phone Jean Munoz MD Primary Care Provider Manny Rizzo MD Unavailable Reason for Visit * Reason Comments Follow-up Encounter Details Date Type Department Care Team (Late st Contact Info) Description 07/21/2011 14:00 EST Office Visit [facility] [address] [place] [address] Jean Munoz MD [address] [place] [phone] Hot flashes (Primary Dx); Insomnia; Abdominal pain; Narcolepsy; Need for vaccination Social History Tobacco Use Types Packs/Day [...] Sign Reading Time Taken Comments Blood Pressure 104/58 07/21/2011 1352 EST Pulse 70 07/21/2011 1352 EST Temperature 36.3 ??C (97.3 ??F) 07/21/2011 1352 EST Respiratory Rate - - Oxygen Saturation - - Inhaled Oxygen Concentration - - Weight 93.9 kg (207 lb) 07/21/2011 1352 EST Height 162.6 cm (5' 4) 07/21/2011 1352 EST Body Mass Index 35.53 07/21/2011 1352 EST documented in this encounter Functional Status Cognitive Status Response Date of Assessm ent Because of a physical, menta l, or emotional condition, do you have serious difficulty concentrating, remembering, or making decisions? (5 years old or older) Yes 09/19/2010 documented as of this encounter Progress Notes * Jean Munoz MD - 07/21/2011 1425 EST Subjective: Patient ID: Liset Viera is an 50 y.o. female. Chief Complaint Patient presents with ??? Follow-up HPI 1. Hot flashes 2 months Daily No change Usually cold Shaky, mild Now on nortriptyline 50 mg Dry mouth not much better, sleep still a problem Not taking baclofen very often ?muscle spasm at night Has had Sleep eval Dr Arsh Everett MD S/p hysterectomy 2. Abdominal pain After eat 2-3 months LUQ pain 10/10 Small meal OK Large meal worse Pressure numb Duration greater than 1 hour +FHx intestinal problems ?bowel obstruction No fever, chills, +sweats No nausea, vomiting +diarrhea off and on for quit a while Pain sometimes better with BM +in Patient Active Problem List Diagnoses ??? Severe [...] Seasonal allergic rhinitis ??? Lumbar radicular pain Past Medical History Diagnosis Date ??? [...] TIMES A DAY 270 Each 1 ??? nortriptyline (PAMELOR) 50 mg capsule Take 1 Cap by mouth at bedtime. 30 Cap 2 ??? baclofen (LIORESAL) 10 mg tablet [...] rarely ROS - See HPI Objective: BP 104/58 Pulse 70 Temp(Src) 36.3 ??C (97.3 ??F) (Oral) Ht 162.6 cm (64) Wt 93.895 kg (207lb) BMI 35.53 kg/m2 Physical Exam abdomen diffuse inconsistent tenderness, no masses, HSM, rebound or guarding Pelvic and rectal exam deferred Assessment: Plan: Liset was seen today for follow-up. Diagnoses and associated orders for this visit: Hot flashes Suspect menopausal symptoms Briefly discussed options for treatment Will review at next visit Insomnia Ambien chris Cautioned her on use of this in setting of narcolepsy Abdominal pain - Hemagram & Differential - Comprehensive Metabolic Panel (CMP) - Lipase - Helicobacter Pylori IgG Antibody - TTG Ab, IgA, S Narcolepsy F/U Sleep clinic Need for vaccination - Influenza vaccine greater than or equal to 3yo split IM Patient Education Topic: as above Method: Verbal Taught to: Patient Barriers: None Outcomes: Verbalized understanding documented in this encounter Plan of Treatment Upcoming Encounters Date Type Department Care Team (Late st Contact Info) Description 06/29/2024 14:15 EDT Office Visit [facility] [address] [place], [place] [phone] Jean Munoz MD [address] [place] [phone] documented as of this encounter Procedures Procedure Name Priority Date/Time Associated Diagnosis Comments TISSUE TRANSGLUTAMINASE ANTIBODY, IGA Routine 07/21/2011 14:59 EST Abdominal pain HELICOBACTER PYLORI IGG ANTIBODY Routine 07/21/2011 14:59 EST Abdominal pain COMPLETE BLOOD COUNT AND DIFFERENTIAL Routine 07/21/2011 14:59 EST Abdominal pain LIPASE Routine 07/21/2011 14:59 EST Abdominal pain COMPREHENSIVE METABOLIC PANEL (CMP) Routine 07/21/2011 14:59 EST Abdominal pain documented in this encounter Results * TTG AB, IGA, S (07/21/2011 14:59 EST) tTG Ab, IgA, S <1.3 <4.0 U/mL [facility] Comment: (Note) <4 U/mL (Negative) Performed by: [facility], [address], [place] [address], Pitch Flaker: Liset Dick, Ph.D. Blood specimen (specimen) 07/21/2011 14:59 EST 07/21/2011 16:44 EST Jean Munoz MD IMMUNOLOGY AND SEROLOGY ORDERABLES Performing Organization Address [facility] Co de Phone Number [facility] [address] [place] [address] * HELICOBACTER PYLORI IGG ANTIBODY (07/21/2011 14:59 EST) H. Pylori IgG Ab Negative [facility] Comment: Assayed utilizing the seedtag system. Values may vary with other methods. Blood specimen (specimen) 07/21/2011 14:59 EST 07/21/2011 16:44 EST Jean Munoz MD CHEMISTRY & BLO OD GAS ORDERABLES Performing Organization Address [facility] Co de Phone Number [facility] [address] [place] [address] * LIPASE (07/21/2011 14:59 EST) Lipase 115 0 - 250 U/L [facility] Blood specimen (specimen) 07/21/2011 14:59 EST 07/21/2011 16:44 EST Jean Munoz MD CHEMISTRY & BLO OD GAS ORDERABLES [facility] [address] [place] [address] * (ABNORMAL) COMPREHENSIVE METABOLIC PANEL (CMP) (07/21/2011 14:59 EST) Potassium 4.2 3.5 - 5.0 mEq/L [facility] Sodium 142 136 - 145 mEq/L [facility] Chloride 110 96 - 110 mEq/L [facility] CO2 25 24 - 32 mEq/L [facility] Total Alkaline Phosphatase 105 38 - 126 U/L [facility] Bilirubin, Total <0.5 0.2 - 1.3 mg/dl [facility] AST 15 15 - 46 U/L [facility] ALT 25 9 - 52 U/L [facility] Albumin 3.9 3.4 - 4.9 g/dl [facility] Total Protein 6.9 6.5 - 8.3 g/dl [facility] Creatinine 0.65(L) 0.7 - 1.5 mg/dl [facility] GFR, Calculated >60 >60 ml/min/1.7 3m2 [facility] BUN 11 10 - 26 mg/dl [facility] Calcium 8.8 8.5 - 10.5 mg/dl [facility] Calculated Calcium 9.3 8.5 - 10.5 mg/dl [facility] Glucose, Serum 87 70 - 100 mg/dl [facility] Fasting? Unknown [facility] Blood specimen (specimen) 07/21/2011 14:59 EST 07/21/2011 16:44 EST Jean Munoz MD CHEMISTRY & BLO OD GAS ORDERABLES Performing Organization Address City/[facility]/ZIP Co de Phone Number [facility] [address] [place] [address] * (ABNORMAL) HEMAGRAM AND DIFFERENTIAL (07/21/2011 14:59 EST) WBC 7.97 4.0 - 12.4 K/cmm [facility] RBC 3.84(L) 3.86 - 5.04 M/cmm [facility] Hemoglobin 12.4 11.6 - 15.2 gm/dl [facility] HCT 35.3 34.9 - 44.4 % [facility] MCV 92 81 - 98 fl [facility] MCH 32.3 26.7 - 33.3 pg [facility] MCHC 35.1 32.1 - 35.9 gm/dl [facility] PLT 303 141 - 320 K/cmm [facility] RDW-CV 15.1(H) 11.7 - 14.6 % [facility] % Neutrophils 64.6 45.5 - 79.7 % [facility] % Lymphocytes 25.2 15.0 - 46.8 % [facility] % Monocytes 6.4 1.8 - 12.0 % [facility] % Eosinophils 3.3 0.6 - 6.9 % [facility] % Basophils 0.5 0.2 - 1.4 % [facility] ABS Neutrophils 5.16 2.20 - 8.85 K/cmm [facility] ABS Lymphs 2.00 1.09 - 3.30 K/cmm [facility] Monocytes 0.51 0.1 - 0.8 K/cmm [facility] Eosinophils 0.26 0.03 - 0.61 K/cmm [facility] Basophils 0.04 0.01 - 0.11 K/cmm [facility] Type of Diff: Automated [facility] Blood specimen (specimen) 07/21/2011 14:59 EST 07/21/2011 16:44 EST Jean Munoz MD PACKAGES & DNA PROBE ORDERABLES [facility] [address] [place] [address] documented in this encounter Visit Diagnoses Diagnosis Hot flashes- Primary Symptomatic menopausal or female climacteric states Insomnia Insomnia, unspecified Abdominal pain Abdominal pain, unspecified site Narcolepsy Narcolepsy without cataplexy Need for vaccination Need for prophylactic vaccination and inoculation against unspecified single disease Screening for osteoporosis- Primary Special screening for osteoporosis Primary narcolepsy without cataplexy Chronic pain syndrome Chronic low back pain Lumbago Chronic use of opiate for therapeutic purpose Pain medication agreement Encounter for long-term (current) use of other medications Screen for colon cancer Special screening for malignant neoplasms, colon documented in this encounter Orders Immunization/Injection Count Last Ordered Date First Ordered Date INFLUENZA VACCINE =>3YO SPLIT IM 1 07/22/20 11 documented in this encounter Care Teams Wastewater Project Manager Relationship Specialty Start Date End Date Jean Munoz MD [address] [place] [phone] PCP - General 12/31/08 Manny Rizzo MD [address] [place] [phone] 04/20/10 documented as of this encounter
--- OUTSIDE RECORDS SUMMARY | 2024-06-10 07:33 | XMS_ITS | Encounter Summary ---
Author Organization [facility] Address [address] [place] [address] Care Team Providers Care Rounder And Backer Name Role Phone Jean Munoz MD Primary Care Provider Manny Rizzo MD Unavailable Reason for Visit * Reason Onset Date Comments Medications Refill 02/18/2011 Encounter Details Date Type Department Care Team (Late st Contact Info) Description 02/18/2011 Refill [facility] [address] [place], [place] [phone] Jean Munoz MD [address] [place] [phone] Medications Refill Social History Tobacco [...] ONCE NEEDED FOR MIGRAINE 9 Each 2 02/18/2011 08/31/2011 documented in this encounter Miscellaneous Notes * Telephone Encounter - Feli Preston - 02/18/2011 1343 EDT Received refill request by fax from pharmacy. Last visit: 01.21.11 Next visit: 04.20.11 documented in this encounter Plan of Treatment Upcoming Encounters Date Type Department Care Team (Late st Contact Info) Description 06/29/2024 14:15 EDT Office Visit [facility] [address] [place], [place] [phone] Jean Munoz MD [address] [place] [phone] documented as of this encounter Visit Diagnoses Not on filedocumented in this encounter Discontinued Medications Medication Sig Discontinue Reason Start Date End Da te sumatriptan (IMITREX) 50 mg tabletIndications:Migra ine Take 1 Tab by mouth once as needed for Migraine for 1 dose. Gets 9 tabs a month and uses them all Reorder 11/13/2010 02/18/2011 documented as of this encounter Care Teams Rounder And Backer Relationship Specialty Start Date End Date Jean Munoz MD [address] [place] [phone] PCP - General 12/31/08 Manny Rizzo MD [address] [place] [address] 04/20/10 documented as of this encounter
--- OUTSIDE RECORDS SUMMARY | 2024-06-10 07:33 | XMS_ITS | Encounter Summary ---
Author Organization [facility] Address [address] [place] [address] Care Team Providers Care Hostess Party Sales Representative Name Role Phone Jean Munoz MD Primary Care Provider Manny Rizzo MD Unavailable Reason for Visit * Reason Comments Pain back pain follow up Encounter Details Date Type Department Care Team (Late st Contact Info) Description 12/11/2010 14:30 EDT Office Visit [facility] [address] [place], [place] [phone] Jean Munoz MD [address] [place] [phone] Chronic back pain (Primary Dx) Social History Tobacco Use [...] Sign Reading Time Taken Comments Blood Pressure 124/86 12/11/2010 1433 EDT Pulse 60 12/11/2010 1433 EDT Temperature 36.2 ??C (97.2 ??F) 12/11/2010 1433 EDT Respiratory Rate - - Oxygen Saturation - - Inhaled Oxygen Concentration - - Weight 90.7 kg (200 lb) 12/11/2010 1433 EDT Height - - Body Mass Index 34.33 11/13/2010 0952 EST documented in this encounter Functional Status Cognitive Status Response Date of Assessm ent Because of a physical, menta l, or emotional condition, do you have serious difficulty concentrating, remembering, or making decisions? (5 years old or older) Yes 09/19/2010 documented as of this encounter Ordered Prescriptions Prescription Sig Dispensed Refills Start Date End Da te amitriptyline (ELAVIL) 25 mg tabletIndications:Chronic back pain Take 1 Tab by mouth at bedtime as needed for Sleep. 30 Tab 2 12/11/2010 01/21/2011 documented in this encounter Progress Notes * Jean Munoz MD - 12/11/2010 1505 EDT Subjective: Patient ID: Liset Viera is an 49 y.o. female. Chief Complaint Patient presents with ??? Pain back pain follow up HPI 1. Abscess of face - resolved per patient 2. Chronic back pain Has not seen Pain Clinic Still taking Lyrica Now on amitriptyline 10 mg, not sure if it helps No side effects 3. Asthma Exacerbation resolved, off prednsione 4. Cervicalgia Doing well on Lyrica Continue pregabalin (LYRICA) 150 mg capsule; Take 1 Cap by mouth 3 times ej 5. GERD - notes sore on LUQ when contipated 6. RLS - OK 7. Migraines doing wpretty good, Imitrex 4x/mmonth 8. Insomnia - better overal, Ambien 3x/week zolpidem (AMBIEN) 10 mg tablet; Take 1 Tab by mouth at bedtime as needed for Sleep. Patient Active Problem List Diagnoses Code ??? [...] spondylosis 721.0D ??? Abscess of face 682.0A Past Medical History Diagnosis Date ??? UTI [...] to encounter Medication Sig Dispense Refill ??? hydroxypropyl methylcellulose (ISOPTO TEARS) 0.5 % ophthalmic solution Place 1 Drop into both eyes 5 times daily. ??? cyclosporin (RESTASIS) 0.05 % ophthalmic emulsion Place 1 Drop into both eyes 2 times daily. 2 Package 12 ??? methylphenidate (RITALIN) 10 mg tablet Take 1 Tab by mouth. Take 1 tablet at noon 30 Tab 0 ??? methylphenidate (RITALIN SR; METADATE ER; METHYLIN ER) 20 mg SR tablet Take 2 Tabs by mouth. inthe morning at 8:00am 60 Tab 0 ??? fluticasone-salmeterol (ADVAIR DISKUS) 500-50 mcg/dose diskus [...] daily as needed. 90 Tab 3 ??? hydrocodone-acetaminophen (LORTAB;VICODIN) 5-500 mg per tablet Take 1 Tab by mouth every 6 hours as needed for Pain. 27 Tab 0 ??? docusate sodium (COLACE) 100 mg capsule Take 1 Cap by mouth 2 times daily as needed for Constipation. ??? varenicline (CHANTIX) 1 mg tablet Take 1 Tab by mouth 2 times daily. 60 Each 2 Allergies Allergen Reactions ??? Toradol (Ketorolac Tromethamine) Hives ??? Motrin (Ibuprofen) Itching Social History Substance Use Topics ??? Smoking status: Former Smoker -- 0.5 packs/day for 30 years Types: Cigarettes Quit date: 10/14/2010 ??? Smokeless tobacco: Never Used ??? Alcohol Use: No rarely ROS - See HPI Objective: BP 124/86 Pulse 60 Temp(Src) 36.2 ??C (97.2 ??F) (Oral) Wt 90.719 kg (200 lb) Physical Exam deferred Assessment: Plan: Liset was seen today for pain. Diagnoses and associated orders for this visit: Chronic back pain - Increase amitriptyline (ELAVIL) 25 mg tablet; Take 1 Tab by mouth at bedtime as needed for Sleep. Recheck 1 month documented in this encounter Plan of Treatment Upcoming Encounters Date Type Department Care Team (Late st Contact Info) Description 06/29/2024 14:15 EDT Office Visit [facility] [address] [place] [address] Jean Munoz MD [address] [place] [phone] documented as of this encounter [...] Discontinue Reason Start Date End Da te amitriptyline (ELAVIL) 10 mg tabletIndications:Chroni c back pain Take 1 Tab by mouth at bedtime as needed for Sleep. 11/13/2010 12/11/2010 documented as of this encounter Historical Medications * This list may reflect changes made after this encounter. Medication Sig Dispensed Refills Start Date End Date Flaxseed Oil Oil by [employer].(Non-Drug; Combo Route) route. 04/11/2012 CYCLOSPORINE (RESTASIS OPHT) Apply 1 Drop to eye 2 times daily. 07/05/2012 added in this encounter Care Teams Hostess Party Sales Representative Relationship Specialty Start Date End Date Jean Munoz MD [address] [place] [phone] PCP - General 12/31/08 Manny Rizzo MD [address] [place] [address] 04/20/10 documented as of this encounter
--- OUTSIDE RECORDS SUMMARY | 2024-06-10 07:33 | XMS_ITS | Encounter Summary ---
Author Organization [facility] Address [address] [place] [address] Care Team Providers Care Lay Health Advocate Name Role Phone Jean Munoz MD Primary Care Provider Manny Rizzo MD Unavailable Encounter Details Date Type Department Care Team (Late st Contact Info) Description 01/19/2011 Abstract Used for ABSTRACTING Data [phone] Giovanni Rodriguez MD [address] [facility], [facility] [address] [place] [address] Social History Tobacco Use Types [...] Visit [facility] [address] [place] [address] Jean Munoz MD [address] [place] [phone] documented as of this encounter Visit Diagnoses Not on filedocumented in this encounter Care Teams Lay Health Advocate Relationship Specialty Start Date End Date Jean Munoz MD [address] [place] [phone] PCP - General 12/31/08 Manny Rizzo MD [address] [place] [address] 04/20/10 documented as of this encounter
--- OUTSIDE RECORDS SUMMARY | 2024-06-10 07:33 | XMS_ITS | Encounter Summary ---
Author Organization [facility] Address [address] [place] [address] Care Team Providers Care Circular Saw Operator Name Role Phone Jean Munoz MD Primary Care Provider Manny Rizzo MD Unavailable Encounter Details Date Type Department Care Team (Late st Contact Info) Description 12/18/2010 Phlebotomy Only [facility] [address] [place], [place] [phone] Provider Engagement Executive, Outpatient Restless leg syndrome; Fatty liver; Screening for hyperlipidemia; Fatigue Social History Tobacco Use Types Packs/Day Years [...] Visit [facility] [address] [place], [place] [phone] Jean Munoz MD [address] [place] [phone] documented as of this encounter Procedures Procedure Name Priority Date/Time Associated Diagnosis Comments THYROID CASCADE Routine 12/18/2010 13:24 EDT Fatigue COMPLETE BLOOD COUNT Routine 12/18/2010 13:24 EDT Restless leg syndrome LIPID PROFILE (INCLUDES CHOLESTEROL, TRIGLYCERIDES, HDL, LDL) Routine 12/18/2010 13:24 EDT Screening for hyperlipidemia COMPREHENSIVE METABOLIC PANEL (CMP) Routine 12/18/2010 13:24 EDT Fatty liver documented in this encounter Results * THYROID CASCADE (12/18/2010 13:24 EDT) TSH 1.66 0.35 - 5.00 uIU/ml [facility] Comment: ??TSH cascade is not recommended for patients in which pituitary or hypothalamic disorders are suspected. Blood specimen (specimen) 12/18/2010 13:24 EDT 12/18/2010 13:27 EDT Jean Munoz MD CHEMISTRY & BLO OD GAS ORDERABLES [facility] [address] [place] [address] * (ABNORMAL) LIPID PROFILE (INCLUDES CHOLESTEROL, TRIGLYCERIDES, HDL, LDL) (12/18/2010 13:24 EDT) Cholesterol 241 mg/dl [facility] Comment:Desirable:<200 Borde rline High:200-239 High:>ba=582 Triglycerides 203(H) 35 - 160 mg/dl [facility] HDL 57 mg/dl [facility] Comment:Low:<40 High(Desirab le):>or=60 LDL, Calculated 143 mg/dl FL[facility]asti[facility] Comment: Optimal:<100 Above optimal:100-129 Borderline High:130-159 High:160-189 Very High:>nv=568 Chol/HDL Ratio 4.2 [facility] Fasting? Yes [facility] Blood specimen (specimen) 12/18/2010 13:24 EDT 12/18/2010 13:27 EDT Jean Munoz MD CHEMISTRY & BLO OD GAS ORDERABLES [facility] [address] [place] [address] * COMPREHENSIVE METABOLIC PANEL (CMP) (12/18/2010 13:24 EDT) Potassium 4.4 3.5 - 5.0 mEq/L [facility] Sodium 144 136 - 145 mEq/L [facility] Chloride 105 96 - 110 mEq/L [facility] CO2 26 24 - 32 mEq/L [facility] Total Alkaline Phosphatase 87 38 - 126 U/L [facility] Bilirubin, Total <0.5 0.2 - 1.3 mg/dl [facility] AST 16 15 - 46 U/L [facility] ALT 24 9 - 52 U/L [facility] Albumin 4.3 3.4 - 4.9 g/dl [facility] Total Protein 7.3 6.5 - 8.3 g/dl [facility] Creatinine 0.73 0.7 - 1.5 mg/dl [facility] GFR, Calculated >60 ml/min/1.7 3m2 [facility] BUN 13 10 - 26 mg/dl [facility] Calcium 9.1 8.5 - 10.5 mg/dl [facility] Calculated Calcium 9.2 8.5 - 10.5 mg/dl [facility] Glucose, Serum 85 70 - 100 mg/dl [facility] Fasting? Yes [facility] Blood specimen (specimen) 12/18/2010 13:24 EDT 12/18/2010 13:27 EDT Jean Munoz MD CHEMISTRY & BLO OD GAS ORDERABLES Performing Organization Address [facility] Co de Phone Number [facility] [address] [place] [address] * HEMAGRAM (12/18/2010 13:24 EDT) WBC 7.39 4.0 - 12.4 K/cmm [facility] RBC 4.23 3.86 - 5.04 M/cmm [facility] Hemoglobin 14.0 11.6 - 15.2 gm/dl [facility] HCT 40.7 34.9 - 44.4 % [facility] MCV 96 81 - 98 fl [facility] MCH 33.0 26.7 - 33.3 pg [facility] MCHC 34.3 32.1 - 35.9 gm/dl [facility] PLT 304 141 - 320 K/cmm [facility] RDW-CV 14.6 11.7 - 14.6 % [facility] Blood specimen (specimen) 12/18/2010 13:24 EDT 12/18/2010 13:27 EDT Jean Munoz MD HEMATOLOGY & PF 4 ORDERABLES Performing Organization Address [facility] Co de Phone Number [facility] [address] [place] [address] documented in this encounter Visit Diagnoses Diagnosis Restless leg syndrome Restless legs syndrome (RLS) Fatty liver Other chronic nonalcoholic liver disease Screening for hyperlipidemia Screening for lipoid disorders Fatigue Other malaise and fatigue Screening for osteoporosis- Primary Special screening for osteoporosis Primary narcolepsy without cataplexy Chronic pain syndrome Chronic low back pain Lumbago Chronic use of opiate for therapeutic purpose Pain medication agreement Encounter for long-term (current) use of other medications Screen for colon cancer Special screening for malignant neoplasms, colon documented in this encounter Care Teams Circular Saw Operator Relationship Specialty Start Date End Date Jean Munoz MD [address] [place] [phone] PCP - General 12/31/08 Manny Rizzo MD [address] [place] [address] 04/20/10 documented as of this encounter
--- OUTSIDE RECORDS SUMMARY | 2024-06-10 07:33 | XMS_ITS | Encounter Summary ---
Author Organization [facility] Address [address] [place] [address] Care Team Providers Care Anodizing Line Operator Name Role Phone Jean Munoz MD Primary Care Provider Manny Rizzo MD Unavailable Reason for Visit * Reason Onset Date Comments Medication Problem 06/23/2011 Encounter Details Date Type Department Care Team (Late st Contact Info) Description 06/23/2011 Refill [facility] Sleep Program - [address] [id number] [place] [address] Medication Problem Social History Tobacco Use Types [...] METADATE ER; METHYLIN ER) 20 mg SR tabletIndications:Narcolep sy Take two tabs by mouth at 8:00 am. 20 Tab 0 06/23/2011 07/16/2011 methylphenidate (RITALIN SR; METADATE ER; METHYLIN ER) 20 mg SR tabletIndications:Narcolep sy Take two tabs by mouth at 8:00 am. 60 Tab 0 06/23/2011 07/16/2011 documented in this encounter Miscellaneous Notes * Telephone Encounter - Corrina Ac RN - 06/24/2011 1117 EDT Called Medicaid, [id number], for Prior Auth on brand version of Ritalin SR 20mg BID. Approved for one year, back dated to 06.23.11 so pt can pursue reimbursement for medication #40. Called pt and made her aware. Mailed approval info and prescription for Ritalin SR 20mg #20 to [facility]. * Telephone Encounter - Corrina Ac RN - 06/23/2011 1458 EDT Spoke with pt, she said she already filled her #40 on Ritlain SR 20mg. Asking for #20, balance, be mailed directly to her pharmacy. Pt asking if a Prior Auth is possible on the brand name. * Telephone Encounter - Bambi Zhou - 06/23/2011 1351 EDT Patient called and states that she should have gotten a script for 60 on the Ritalin SR not 40 quanity. Please call patient to discuss. documented in this encounter Plan of Treatment Upcoming Encounters Date Type Department Care Team (Late st Contact Info) Description 06/29/2024 14:15 EDT Office Visit [address] [place] [address] Jean Munoz MD [address] [place] [phone] documented as of this encounter Visit Diagnoses [...] ER) 20 mg SR tabletIndications:Narcole psy Take two tabs by mouth at 8:00 am. Reorder 06/22/2011 06/23/2011 documented as of this encounter Care Teams Anodizing Line Operator Relationship Specialty Start Date End Date Jean Munoz MD [address] [place] [phone] PCP - General 12/31/08 Manny Rizzo MD [address] [place] [address] 04/20/10 documented as of this encounter
--- OUTSIDE RECORDS SUMMARY | 2024-06-10 07:33 | XMS_ITS | Encounter Summary ---
Author Organization [facility] Address [address] [place] [address] Care Team Providers Care Deflector Operator Name Role Phone Jean Munoz MD Primary Care Provider Manny Rizzo MD Unavailable Reason for Visit * Reason Comments Other Encounter Details Date Type Department Care Team (Late st Contact Info) Description 05/19/2011 [facility] [address] [place] [address] Jean Munoz MD [address] [place] [phone] Other Social History Tobacco Use Types [...] End Da te pregabalin (LYRICA) 150 mg capsule TAKE ONE CAPSULE BY MOUTH THREE TIMES A DAY 270 Each 1 05/19/2011 11/13/2011 documented in this encounter Miscellaneous Notes * Telephone Encounter - Jean Munoz MD - 05/19/2011 171 EDT Script done, please call in to pharmacy and notify patient. * Telephone Encounter - Jasmin Mario - 05/19/2011 170 EDT Request: Lyrica and Prilosec EMMA: 04.20.11 NOV: 07.21.11 Out of med: no. Pharmacy confirmed they have prilosec script dated 04.20.11. However, although Lyricawritten for 1 year, it expires after 6 months. Pended 6 month refill for phone in and routing to PCP to review. Thank you! documented in this encounter Plan of Treatment Upcoming Encounters Date Type Department Care Team (Late st Contact Info) Description 06/29/2024 14:15 EDT Office Visit [facility] [address] [place] [address] Jean Munoz MD [address] [place] [phone] documented as of this encounter Visit Diagnoses Not on filedocumented in this encounter Discontinued Medications Medication Sig Discontinue Reason Start Date End Da te pregabalin (LYRICA) 150 mg capsuleIndications:Chroni c back pain,Cervicalgia Take 1 Cap by mouth 3 times daily. Duplicate Therapy 11/13/2010 05/19/2011 documented as of this encounter Care Teams Deflector Operator Relationship Specialty Start Date End Date Jean Munoz MD [address] [place] [phone] PCP - General 12/31/08 Manny Rizzo MD [address] [place] [address] 04/20/10 documented as of this encounter
--- OUTSIDE RECORDS SUMMARY | 2024-06-10 07:33 | XMS_ITS | Encounter Summary ---
Author Organization [facility] Address [address] [place] [address] Care Team Providers Care Freight Flow Sales Leader Name Role Phone Jean Munoz MD Primary Care Provider Manny Rizzo MD Unavailable Reason for Visit * Reason Onset Date Comments Paperwork request 03/06/2011 faxed to Reid [facility]bons Encounter Details Date Type Department Care Team (Late st Contact Info) Description 03/06/2011 Telephone [facility] [address] [place] [address] Jean Munoz MD [address] [place] [phone] Paperwork request (faxed to Wednesday) Social History Tobacco Use Types Packs/Day Years [...] Telephone Encounter - Jean Munoz MD - 03/07/2011 1120 EDT I called patient 03/06/11 to clarify, left message Form completed, please fax * Telephone Encounter - Sho Erazo - 03/06/2011 1425 EDT Patient is calling because we had filled out a form for Vocational rehab, we had filled it out and faxed it to them on Wednesday of this week, they needed something on it corrected and faxed back. They are stating they do not have the corrected one yet. Liset states she is not getting her rent paid until this has been sent back to them so it is very important. She wanted to speak with Dr. Munoz personally please. Thank you. documented in this encounter Plan of Treatment Upcoming Encounters Date Type Department Care Team (Late st Contact Info) Description 06/29/2024 14:15 EDT Office Visit [facility] [address] [place] [address] Jean Munoz MD [address] [place] [phone] documented as of this encounter Visit Diagnoses Not on filedocumented in this encounter Care Teams Freight Flow Sales Leader Relationship Specialty Start Date End Date Jean Munoz MD [address] [place] [phone] PCP - General 12/31/08 Manny Rizzo MD [address] [place] [phone] 04/20/10 documented as of this encounter
--- OUTSIDE RECORDS SUMMARY | 2024-06-10 07:33 | XMS_ITS | Encounter Summary ---
Author Organization [facility] Address [address] [place] [address] Care Team Providers Care Section 8 Property Manager Name Role Phone Jean Munoz MD Primary Care Provider Manny Rizzo MD Unavailable Encounter Details Date Type Department Care Team (Late st Contact Info) Description 04/20/2011 Abstract Used for ABSTRACTING Data [phone] Giovanni Rodriguez MD [address] [facility], [facility] [address] [place] [address] Social History Tobacco Use Types [...] 14:15 EDT Office Visit [facility] [address] [place] [address] Jean Munoz MD [address] [place] [phone] documented as of this encounter Visit Diagnoses Not on filedocumented in this encounter Care Teams Section 8 Property Manager Relationship Specialty Start Date End Date Jean Munoz MD [address] [place] [phone] PCP - General 12/31/08 Manny Rizzo MD [address] [place] [address] 04/20/10 documented as of this encounter
--- OUTSIDE RECORDS SUMMARY | 2024-06-10 07:33 | XMS_ITS | Encounter Summary ---
Author Organization [facility] Address [address] [place] [address] Care Team Providers Care Corporate Claims Examiner Name Role Phone Jean Munoz MD Primary Care Provider Manny Rizzo MD Unavailable Reason for Visit * Reason Comments Other Encounter Details Date Type Department Care Team (Late st Contact Info) Description 04/23/2011 [facility] [address] [place] [address] Jean Munoz MD [address] [place] [phone] Other Social History Tobacco Use Types [...] * Telephone Encounter - Jasmin Mario - 04/23/2011 4665 EDT Request: Imitrex EMMA: 04.20.11 NOV: 07.21.11 Out of med: unknown. Tried to call pharmacy x2 to confirm if refills left, but busy. Outcome: per EMMA notes, Migraine Possible overuse of Imitrex She will contact pharmacy for refills OK to renew in May documented in this encounter Plan of Treatment Upcoming Encounters Date Type Department Care Team (Late st Contact Info) Description 06/29/2024 14:15 EDT Office Visit [facility] [address] [place], [place] [phone] Jean Munoz MD [address] [place] [phone] documented as of this encounter Visit Diagnoses Not on filedocumented in this encounter Care Teams Corporate Claims Examiner Relationship Specialty Start Date End Date Jean Munoz MD [address] [place] [phone] PCP - General 12/31/08 Manny Rizzo MD [address] [place] [address] 04/20/10 documented as of this encounter
--- OUTSIDE RECORDS SUMMARY | 2024-06-10 07:33 | XMS_ITS | Encounter Summary ---
Author Organization [facility] Address [address] [place] [address] Care Team Providers Care Water Hauler Name Role Phone Jean Munoz MD Primary Care Provider Manny Rizzo MD Unavailable Reason for Visit * Reason Comments Follow-up Encounter Details Date Type Department Care Team (Late st Contact Info) Description 07/16/2011 13:40 EDT Office Visit [facility] Sleep Program - [address] [phone] Tiana Bacon [address] [place] [address] Narcolepsy without cataplexy (Primary Dx); Hypersomnolence Social History Tobacco Use Types Packs/Day Years [...] Sign Reading Time Taken Comments Blood Pressure 108/70 07/16/2011 1345 EDT Pulse 83 07/16/2011 1345 EDT Temperature - - Respiratory Rate 18 07/16/2011 1345 EDT Oxygen Saturation 100% 07/16/2011 1345 EDT Inhaled Oxygen Concentration - - Weight 94.3 kg (208 lb) 07/16/2011 1345 EDT Height 162.6 cm (5' 4) 07/16/2011 1345 EDT Body Mass Index 35.7 07/16/2011 1345 EDT documented in this encounter Functional [...] the morning for narcolepsy. 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 Caban in sleep clinic on 10/29/2010. She had a PSG and MSLT performed on 12/16/2008 which showed no sleep disordered breathing on PSG, and on MSLT an average sleep latency of 2 min. 52 sec, with 2 SOREMPs. Her medications includes Ritalin SR 20 mg (2) in the morning, and Ritalin IR 10 mg in the afternoon. She is neutral about whether this medication regimen works for her, stating that she has bad dayswhen she sleep all day. She goes to bedtime at 10 p.m. and wakes at 7 a.m. She is able to sleep throughout the night, but does not feel refreshed in the morning. She thinks she may have gained 50 lbssince her last sleep study. ( records indicate that she was 171 lbs at the time of her study and has since gained 37 lbs). There are no witnessed apneas. When asked if her level of sleepiness is the same as at the time of her diagnosis of narcolepsy, she feels it is a little worse. She is taking Requip for RLS which she states is effective. Past Medical History Diagnosis Date ??? UTI [...] Laceration 12/26/09 ??? Dizziness 12/26/09 ??? Cataract History Substance Use Topics ??? Smoking status: Former Smoker -- 0.5 packs/day for 30 years Types: Cigarettes Quit date: 10/14/2010 ??? Smokeless tobacco: Never Used ??? Alcohol Use: No rarely Past Surgical History Procedure Date ??? Salpingectomy [...] ??? Cataract Mother ??? Cataract Maternal Grandfather Current Outpatient Prescriptions Medication Sig Dispense Refill ??? zolpidem (AMBIEN) [...] to eye. ??? Flaxseed Oil Oil [place] [facility]Non-Drug; Combo Route) route. ??? hydroxypropyl methylcellulose (ISOPTO [...] 2 times daily as needed for Constipation. ROS is negative for SOB, palpitations, headache or chest pain. It is positive for fatigue and weight gain. Exam Filed Vitals: 07/16/11 1345 BP: 108/70 Pulse: 83 Resp: 18 Height: 162.6 cm (64) Weight: 94.348 kg (208 lb) SpO2: 100% Neuro Exam: CN: II- XII intact Strength: 5/5 in BUE and BLE proximally to distally; normal tone and bulk Reflexes: 3+ in upper and lower extremities, plantars neutral Sensations: intact vibration, light touch and cold touch Coordination: intact FTN and HTS Gait: Walks with limp on right (ankle fracuture), negative Romberg Assessment: 50 year old W with a history of narcolepsy without cataplexy and RLS presents for follow up. On hercurrent stimulant regiment, she still feels quite sleepy despite getting getting what should be 9 hours in bed. She does not report any awakenings during the night. It was noted in her last visit that she would me more awake if she were on fewer sedating medications. Nortriptyline, baclofen, and ropinirole (Requip) and pregabalin (Lyrica) and sertraline (Zoloft) could have the potential to makeher feel sleepy. Additionally, she has gained a significant amount of weight since her study in 2008. Though she didnot have KATJA at the time of her study, it is possible that she could have developed it in the meantime with her weight gain. Additionally she had frequent periodic limb movements (without significantarousal) and these may be contributing to her poor sleep despite being on ropinirole. An overnight sleep study will help evaluate for these possibilities. 1. Avoidance of drowsy driving and countermeasures discussed. 2. Excessive weight and its impact on the severity of KATJA discussed. 3. Untreated KATJA and the increased risk of cardiovascular events discussed. 4. Good sleep hygiene and the importance of consistent sleep and wake times, as well as avoiding orlimiting the use of caffeine/EtOH were discussed. Plan: Polysomnogram (split night) Follow up pending results documented in this encounter Plan of Treatment Upcoming Encounters Date Type Department Care Team (Late st Contact Info) Description 06/29/2024 14:15 EDT Office Visit [facility] [address] [place] [address] Jean Munoz MD [address] [place] [phone] Scheduled Orders Name Type Priority Associated Diagnoses Orde r Schedule SPLIT NIGHT (DIAGNOSTIC POLYSOMNOGRAM WITH SPLIT TO CPAP/BIPAP TITRATION) Sleep Center Routine Hypersomnolence Ordered: 07/16/2011 documented as of this encounter Visit Diagnoses Diagnosis Narcolepsy without cataplexy(347.00)- Primary Narcolepsy without cataplexy Hypersomnolence Hypersomnia, unspecified Screening for osteoporosis- Primary Special [...] methylphenidate (RITALIN) 10 mg tabletIndications:Narcole psy Take one tab by mouth at noon. 06/22/2011 07/16/2011 methylphenidate (RITALIN SR; METADATE ER; METHYLIN ER) 20 mg SR tabletIndications:Narcole psy Take two tabs by mouth at 8:00 am. 06/23/2011 07/16/2011 methylphenidate (RITALIN SR; METADATE ER; METHYLIN ER) 20 mg SR tabletIndications:Narcole psy Take two tabs by mouth at 8:00 am. 06/23/2011 07/16/2011 documented as of this encounter Care Teams Water Hauler Relationship Specialty Start Date End Date Jean Munoz MD [address] [place] [phone] PCP - General 12/31/08 Manny Rizzo MD [address] [place] [address] 04/20/10 documented as of this encounter
--- OUTSIDE RECORDS SUMMARY | 2024-06-10 07:33 | XMS_ITS | Encounter Summary ---
Author Organization [facility] Address [address] [place] [address] Care Team Providers Care Cloth Measurer Machine Name Role Phone Jean Munoz MD Primary Care Provider Manny Rizzo MD Unavailable Encounter Details Date Type Department Care Team (Late st Contact Info) Description 01/19/2011 Abstract Used for ABSTRACTING Data [phone] Giovanni Rodriguez MD [address] [facility], [facility] [address] [place] [address] Social History Tobacco Use Types [...] EDT Office Visit [facility] [address] [place] [address] Jean Munoz MD [address] [place] [phone] documented as of this encounter Visit Diagnoses Not on filedocumented in this encounter Care Teams Cloth Measurer Machine Relationship Specialty Start Date End Date Jean Munoz MD [address] [place] [phone] PCP - General 12/31/08 Manny Rizzo MD [address] [place] [address] 04/20/10 documented as of this encounter
--- OUTSIDE RECORDS SUMMARY | 2024-06-10 07:33 | XMS_ITS | Encounter Summary ---
Author Organization [facility] Address [address] [place] [address] Care Team Providers Care Head Wood Grinder Name Role Phone Jean Munoz MD Primary Care Provider Manny Rizzo MD Unavailable Encounter Details Date Type Department Care Team (Late st Contact Info) Description 05/20/2011 Abstract [facility] [address] [place] [address] Deidre Dunbar, CHRIS Social History Tobacco Use Types Packs/Day [...] Office Visit [facility] [address] [place] [address] Jean Munoz MD [address] [place] [phone] documented as of this encounter Visit Diagnoses Not on filedocumented in this encounter Care Teams Head Wood Grinder Relationship Specialty Start Date End Date Jean Munoz MD [address] [place] [phone] PCP - General 12/31/08 Manny Rizzo MD [address] [place] [address] 04/20/10 documented as of this encounter
--- OUTSIDE RECORDS SUMMARY | 2024-06-10 07:33 | XMS_ITS | Encounter Summary ---
Author Organization [facility] Address [address] [place] [address] Care Team Providers Care Bindery Technician Name Role Phone Jean Munoz MD Primary Care Provider Manny Rizzo MD Unavailable Reason for Visit * Reason Onset Date Comments Medications Refill 01/29/2011 Encounter Details Date Type Department Care Team (Late st Contact Info) Description 01/29/2011 Refill [facility] Neurology - [address] [phone] Mik Caban MD [address] [place] [phone] Medications Refill Social History Tobacco Use [...] the morning at 8:00am 60 Tab 0 01/29/2011 02/24/2011 methylphenidate (RITALIN) 10 mg tabletIndications:Narcole psy Take 1 Tab by mouth. 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 * Telephone Encounter - Elizabeth Oreilly - 01/29/2011 4184 EDT Refills requested for Ritalin 20mg SR - Takes 2 in am, and Ritalin 10mg - Takes one in pm. Please call when scripts are ready to be picked up. Do not mail. documented in this encounter Plan of Treatment Upcoming Encounters Date Type Department Care Team (Late st Contact Info) Description 06/29/2024 14:15 EDT Office Visit [facility] 3 [place] [address] Jean Munoz MD [address] [place] [phone] documented as of this encounter Visit Diagnoses [...] mouth. Take 1 tablet at noon Reorder 01/01/2011 01/29/2011 methylphenidate (RITALIN SR; METADATE ER; METHYLIN ER) 20 mg SR tabletIndications:Narcol epsy Take 2 Tabs by mouth. in the morning at 8:00am Reorder 01/01/2011 01/29/2011 documented as of this encounter Care Teams Bindery Technician Relationship Specialty Start Date End Date Jean Munoz MD [address] [place] [phone] PCP - General 12/31/08 Manny Rizzo MD [address] [place] [address] 04/20/10 documented as of this encounter
--- OUTSIDE RECORDS SUMMARY | 2024-06-10 07:33 | XMS_ITS | Encounter Summary ---
Author Organization [facility] Address [address] [place] [address] Care Team Providers Care Radio Repair Teacher Name Role Phone Jean Munoz MD Primary Care Provider Manny Rizzo MD Unavailable Reason for Visit * Reason Onset Date Comments Medications Refill 06/19/2011 Encounter Details Date Type Department Care Team (Late st Contact Info) Description 06/19/2011 Refill [facility] Sleep Program - [address] [address] Mik Caban MD [address] [place] [phone] Medications Refill Social History Tobacco Use [...] End Da te methylphenidate (RITALIN) 10 mg tabletIndications:Narcolep sy Take one tab by mouth at noon. 30 Tab 0 06/22/2011 07/16/2011 methylphenidate (RITALIN SR; METADATE ER; METHYLIN ER) 20 mg SR tabletIndications:Narcolep sy Take two tabs by mouth at 8:00 am. 40 Tab 0 06/22/2011 06/23/2011 documented in this encounter Miscellaneous Notes * Telephone Encounter - Corrina Ac RN - 06/23/2011 0914 EDT Called pt and let her know her ritalin prescriptions are ready for waste picker. * Telephone Encounter - Corrina Ac RN - 06/19/2011 1300 EDT Spoke with pt, she is requesting an alternative stimulant treatment to Ritalin as she is having a hard time finding the one type of generic version that she states does not give her migraines. Pt setup with a follow-up appt with as no longer works here. Pt asking for refills, not due until next week. She is requesting brand name (MAGALI) on the Ritalin SR 20mg. * Telephone Encounter - Bambi Zhou - 06/19/2011 1209 EDT Patient needs a refill on Ritalin SR 20mg. Patient has hard time filling script - could you please call her to discuss alternative medication. documented in this encounter Plan of Treatment Upcoming Encounters Date Type Department Care Team (Late st Contact Info) Description 06/29/2024 14:15 EDT Office Visit [address] [phone] Jean Munoz MD [address] [place] [phone] documented as of this encounter [...] Reason Start Date End Da te methylphenidate (METADATE ER; METHYLIN ER) 10 mg SR tablet Take 4 Tabs by mouth. Every morning at 8am. Duplicate Therapy 05/26/2011 06/22/2011 methylphenidate (RITALIN SR; METADATE ER; METHYLIN ER) 20 mg SR tabletIndications:Narcol epsy Take 2 Tabs by mouth. in the morning at 8:00am Reorder 05/26/2011 06/22/2011 methylphenidate (RITALIN) 10 mg tabletIndications:Narcol epsy Take 1 Tab by mouth. at noon. Reorder 05/22/2011 06/22/2011 documented as of this encounter Care Teams Radio Repair Teacher Relationship Specialty Start Date End Date Jean Munoz MD [address] [place] [phone] PCP - General 12/31/08 Manny Rizzo MD [address] [place] [address] 04/20/10 documented as of this encounter
--- OUTSIDE RECORDS SUMMARY | 2024-06-10 07:33 | XMS_ITS | Encounter Summary ---
Author Organization [facility] [place] Address [address] [place] [address] Care Team Providers Care Top Precipitator Operator Helper Name Role Phone Jean Munoz MD Primary Care Provider Manny Rizzo MD Unavailable Reason for Visit * Reason Comments Diplopia 6 wk motility check. Diplopia doing better, but still having blurring. Restasis 2/2. Refresh 5-7 times daily. Less eye aches and FBS since started Restasis. A little crusty in AM when rises. Encounter Details Date Type Department Care Team (Late st Contact Info) Description 01/21/2011 13:30 EDT Office Visit [facility] Ophthalmology - [address] [address] Giovanni Rodriguez MD [address] [facility], [address] [place] [address] Social History Tobacco Use Types [...] eyes 2 times daily. 2 Package 12 01/21/2011 01/21/2011 documented in this encounter Progress Notes * Giovanni Rodriguez MD - 01/21/2011 1426 EDT Still occ blurred vision . Eyes more comfortable. Will continue on restasis bid and AT. Diplopia improved. documented in this encounter Plan of Treatment Upcoming Encounters Date Type Department Care Team (Late st Contact Info) Description 06/29/2024 14:15 EDT Office Visit [facility] [address] [place] [address] Jean Munoz MD [address] [place] [address] documented as of this encounter Visit Diagnoses Diagnosis Tear film insufficiency, unspecified- Primary Diplopia Screening for osteoporosis- Primary Special screening [...] Drop into both eyes 2 times daily. Reorder 12/10/2010 01/21/2011 documented as of this encounter Eye Exam Visual Acuity (Snellen - Linear) Right eye Left eye Dist cc 20/25 20/20+ Correction: Glasses VA with previous refract of +1.50 sph each eye. WS Pupils APD Right eye None Left eye None Visual Wolf Right eye Left eye Full Full Extraocular Movement Right eye Left eye Full Full 1-2 prism diopters of esotropia. GANESH Neuro/Psych Oriented x3: Yes Mood/Affect: Normal Stereo Circles: 60 sec Slit Lamp Exam Right eye Left eye Lids/Lashes Meibomian gland dysfunction Meib omian gland dysfunction Conjunctiva/Sclera Stain nasal Stain nasal a nd temp. Cornea mild inf stain. BUT 2-3 nasal de llen, BUT 7. Mild inf stain Anterior Chamber Deep and quiet, No F/C Deep and quiet, No F/C Iris Round and reactive, no TI Round and reactive, no TI Care Teams Top Precipitator Operator Helper Relationship Specialty Start Date End Date Jean Munoz MD [address] [place] [phone] PCP - General 12/31/08 [place] [address] [place] [phone] 04/20/10 documented as of this encounter
--- OUTSIDE RECORDS SUMMARY | 2024-06-10 07:33 | XMS_ITS | Encounter Summary ---
Author Organization [facility] Address [address] [place] [address] Care Team Providers Care Glue Mixer Name Role Phone Jean Munoz MD Primary Care Provider Manny Rizzo MD Unavailable Reason for Visit * Reason Comments Back Pain Encounter Details Date Type Department Care Team (Late st Contact Info) Description 04/20/2011 13:00 EDT Office Visit [facility] [address] [place] [address] Jean Munoz MD [address] [place] [phone] Chronic back pain; Cervicalgia; Asthma; Insomnia; Migraine; GERD (gastroesophageal reflux disease) Social History Tobacco [...] Sign Reading Time Taken Comments Blood Pressure 114/78 04/20/2011 1300 EDT Pulse 70 04/20/2011 1300 EDT Temperature 36.4 ??C (97.6 ??F) 04/20/2011 1300 EDT Respiratory Rate - - Oxygen Saturation - - Inhaled Oxygen Concentration - - Weight 114.3 kg (252 lb) 04/20/2011 1300 EDT Height 162.6 cm (5' 4) 04/20/2011 1300 EDT Body Mass Index 43.26 04/20/2011 1300 EDT documented in this encounter Functional [...] as needed for Sleep. 30 Each 2 04/20/2011 07/22/2011 nortriptyline (PAMELOR) 50 mg capsule Take 1 Cap by mouth at bedtime. 30 Cap 2 04/20/2011 08/10/2011 omeprazole (PRILOSEC OTC) 20 mg tabletIndications:GERD (gastroesophageal reflux disease) Take 1 Tab by mouth daily. 30 Tab 2 04/20/2011 05/19/2011 documented in this encounter Progress Notes * Jean Munoz MD - 04/20/2011 1319 EDT Subjective: Patient ID: Liset Viera is an 50 y.o. female. Chief Complaint Patient presents with ??? Back Pain HPI see encounter summary Patient Active Problem List Diagnoses Code ??? Severe Major Depression without Psychotic Features [...] insufficiency 375.15 ??? Seasonal allergic rhinitis 477.9A ??? Lumbar radicular pain 724.4AV Past Medical History Diagnosis Date ??? UTI [...] to encounter Medication Sig Dispense Refill ??? zolpidem (AMBIEN) 10 mg tablet Take 1 Tab by mouth at bedtime as needed for Sleep. 30 Each 2 ??? methylphenidate (RITALIN) 10 mg tablet Take 1 Tab by mouth. at noon. 30 Tab 0 ??? methylphenidate (RITALIN SR; METADATE ER; METHYLIN ER) 20 mg SR tablet Take 2 Tabs by mouth. inthe morning at 8:00am 60 Tab 0 ??? baclofen (LIORESAL) 10 [...] rarely ROS - See HPI Objective: BP 114/78 Pulse 70 Temp(Src) 36.4 ??C (97.6 ??F) (Oral) Ht 162.6 cm (64) Wt 114.306 kg (252 lb) BMI 43.26 kg/m2 Physical Exam deferred Assessment: Plan: Liset was seen today for back pain. Diagnoses and associated orders for this visit: Chronic back pain F/U per pain clinic Avoid tramadol given concurrent therapy with tricyclic and SSRI Cervicalgia Stable Asthma Stable Insomnia - zolpidem (AMBIEN) 10 mg tablet; Take 1 Tab by mouth at bedtime as needed for Sleep. Migraine Possible overuse of Imitrex She will contact pharmacy for refills OK to renew in May Gerd (gastroesophageal reflux disease) - Trial omeprazole (PRILOSEC OTC) 20 mg tablet; Take 1 Tab by mouth daily. Other Orders - Stop amitriptyline - Start nortriptyline (PAMELOR) 50 mg capsule; Take 1 Cap by mouth at bedtime. F/U with pain clinc Return in about 3 months (around 07/21/2011) for SERA. documented in this encounter Miscellaneous Notes * Assessment & Plan Note - Jean Munoz MD - 04/20/2011 1316 EDT Associated Problem(s): Tobacco dependence in remission Patient states quit 5 months ago, smokes but is not around as much, Chantix off * Assessment & Plan Note - Jean Munoz MD - 04/20/2011 1315 EDT Associated Problem(s): Migraine for a little while I was having trouble, +stress (mother in law ), no diary Requesting refill of Imitrex, had Rx in February * Assessment & Plan Note - Jean Munoz MD - 04/20/2011 1314 EDT Associated Problem(s): Insomnia Not good, attributes to pain, taking amitriptyline, mouth dry, no helping * Assessment & Plan Note - Jean Munoz MD - 04/20/2011 1313 EDT Associated Problem(s): Cervicalgia has been all right * Assessment & Plan Note - Jean Munoz MD - 04/20/2011 1312 EDT Associated Problem(s): Asthma (Resolved 03/03/2017) pretty good, Adviar daily, used twice daily during hot spell, none x 2weeks * Assessment & Plan Note - Jean Munoz MD - 04/20/2011 1311 EDT Associated Problem(s): Chronic back pain Not that good, ?MRI per Pain Clinic (?insurnace issue) Injections help for 1-2 months, has F/U in 2 months, ?had injection Now 06/22taking baclofen tid (not prn) documented in this encounter Plan of Treatment Upcoming Encounters Date Type Department Care Team (Late st Contact Info) Description 06/29/2024 14:15 EDT Office Visit [facility] [address] [place] [address] Jean Munoz MD [address] [place] [address] documented as of this encounter Visit Diagnoses Diagnosis Chronic back pain Backache, unspecified Cervicalgia Asthma Unspecified asthma Insomnia Insomnia, unspecified Migraine Migraine, unspecified, without mention of intractable migraine without mention of status migrainosus GERD (gastroesophageal reflux disease) Esophageal reflux Screening [...] End Da te amitriptyline (ELAVIL) 50 mg tabletIndications:Chroni c back pain,Migraine Take 1 Tab by mouth at bedtime as needed for Sleep. Alternate therapy 01/21/2011 04/20/2011 zolpidem (AMBIEN) 10 mg tabletIndications:Insomn ia Take 1 Tab by mouth at bedtime as needed for Sleep. Reorder 11/13/2010 04/20/2011 documented as of this encounter Care Teams Glue Mixer Relationship Specialty Start Date End Date Jean Munoz MD [address] [place] [phone] PCP - General 12/31/08 Manny Rizzo MD [address] [place] [phone] 04/20/10 documented as of this encounter
--- OUTSIDE RECORDS SUMMARY | 2024-06-10 07:33 | XMS_ITS | Encounter Summary ---
Author Organization [facility] Address [address] [place] [address] Care Team Providers Care Underwater Hunter Trapper Name Role Phone Jean Munoz MD Primary Care Provider Manny Rizzo MD Unavailable Reason for Visit * Reason Onset Date Comments Medications Refill 01/01/2011 Encounter Details Date Type Department Care Team (Late st Contact Info) Description 01/01/2011 Refill [facility] Neurology - [address] [phone] Mik Caban MD [address] [place] [phone] Medications Refill Social History Tobacco Use [...] Telephone Encounter - Corrina Ac RN - 01/01/2011 1637 EDT Opened new encounter for refill, see Prism note, so prescription would print at [facility] location. * Telephone Encounter - Elizabeth Oreilly - 01/01/2011 1549 EDT Refill requested for Ritalin: 20mg (takes 2 in am) and 10mg (takes 1 in pm). Please call when readyto be picked up. documented in this encounter Plan of Treatment Upcoming Encounters Date Type Department Care Team (Late st Contact Info) Description 06/29/2024 14:15 EDT Office Visit [facility] Medicine [facility] [address] [place] [address] Jean Munoz MD [address] [place] [phone] documented as of this encounter Visit Diagnoses Not on filedocumented in this encounter Care Teams Underwater Hunter Trapper Relationship Specialty Start Date End Date Jean Munoz MD [address] [place] [phone] PCP - General 12/31/08 Manny Rizzo MD [address] [place] [address] 04/20/10 documented as of this encounter
--- OUTSIDE RECORDS SUMMARY | 2024-06-10 07:33 | XMS_ITS | Encounter Summary ---
Author Organization [facility] Address [address] [place] [address] Care Team Providers Care Fiberglass Boat Maker Name Role Phone Jean Munoz MD Primary Care Provider Manny Rizzo MD Unavailable Reason for Visit * Reason Onset Date Comments Medication Problem 05/26/2011 manufacturing issues Encounter Details Date Type Department Care Team (Late st Contact Info) Description 05/26/2011 Refill [facility] Sleep Program - [address] [phone] Corrina Ac, RN [address] [place] [address] Medication Problem (manufacturing issues) Social History Tobacco Use Types Packs/Day Years [...] Refills Start Date End Da te methylphenidate (METADATE ER; METHYLIN ER) 10 mg SR tablet Take 4 Tabs by mouth. Every morning at 8am. 40 Tab 0 05/26/2011 06/22/2011 methylphenidate (RITALIN SR; METADATE ER; METHYLIN ER) 20 mg SR tabletIndications:Narcole psy Take 2 Tabs by mouth. in the morning at 8:00am 40 Tab 0 05/26/2011 06/22/2011 documented in this encounter Miscellaneous Notes * Telephone Encounter - Corrina Ac RN - 05/26/2011 1148 EDT Pt here at clinic. Pt states she is having trouble obtaining Ritalin SR 20mg quantity 60 as one of the brands gives her a headache but brand with black lettering on tab does not. [facility] pharmacy has #40so she had it filled there but needs a new prescription. To check with regarding options for balance on fill. Walked prescription for #40 down to [facility] pharmacy. Pt picked up prescription for Ritalin SR 10mg #40(balance) as she has not been able to locate another pharmacy that has the Ritalin SR 20mg. documented in this encounter Plan of Treatment Upcoming Encounters Date Type Department Care Team (Late st Contact Info) Description 06/29/2024 14:15 EDT Office Visit [facility] Family Medicine [facility] [address] [place], [place] [phone] Jean Munoz MD [address] [place] [phone] documented as of this encounter Visit Diagnoses [...] mouth. in the morning at 8:00am Reorder 05/22/2011 05/26/2011 documented as of this encounter Care Teams Fiberglass Boat Maker Relationship Specialty Start Date End Date Jean Munoz MD [address] [place] [phone] PCP - General 12/31/08 Manny Rizzo MD [address] [place] [phone] 04/20/10 documented as of this encounter
--- OUTSIDE RECORDS SUMMARY | 2024-06-10 07:33 | XMS_ITS | Encounter Summary ---
Author Organization [facility] Address [address] [place] [address] Care Team Providers Care Liquefaction And Regasification Helper Name Role Phone Jean Munoz MD Primary Care Provider Manny Rizzo MD Unavailable Encounter Details Date Type Department Care Team (Latest Contact Info) Description 12/18/2010 13:00 EDT - 12/18/2010 23:59 EDT Hospital Encounter [address] [address] Jean Munoz MD [address] [place] [phone] Discharge Disposition: Home or Self Care [...] times daily as needed for Constipation. 09/24/2010 amitriptyline (ELAVIL) 25 mg tabletIndications:Chronic back pain Take 1 Tab by mouth at bedtime as needed for Sleep. 30 Tab 2 12/11/2010 01/21/2011 baclofen (LIORESAL) 10 mg tabletIndications:Low back pain,Degeneration of lumbar or lumbosacral intervertebral disc,Arthropathy, unspecified, other specified sites,Lumbosacral spondylosis without myelopathy,Thoracic or lumbosacral neuritis or radiculitis, unspecified Take 0.5-1 Tabs by mouth 3 times daily as needed. 90 Tab 3 11/12/2010 03/20/2011 cyclosporin (RESTASIS) 0.05 % ophthalmic emulsion Place 1 Drop into both eyes 2 times daily. 2 Package 12 12/10/2010 01/21/2011 CYCLOSPORINE (RESTASIS OPHT) Apply 1 Drop to eye 2 times daily. 07/05/2012 Flaxseed Oil Oil by [facility].(Non-Drug; Combo Route) route. 04/11/2012 fluticasone-salmeterol (ADVAIR DISKUS) 500-50 mcg/dose diskus inhaler Inhale 1 Puff as directed 2 times daily. 3 Each 3 11/13/2010 11/13/2011 hydrocodone-acetaminophen (LORTAB;VICODIN) 5-500 mg per tablet Take 1 Tab by mouth every 6 hours as needed for Pain. 27 Tab 0 10/29/2010 01/21/2011 hydroxypropyl methylcellulose (ISOPTO TEARS) 0.5 % ophthalmic solution Place 1 Drop into both eyes 5 times daily. 12/10/2010 10/06/2023 levalbuterol (XOPENEX HFA) 45 mcg/Actuation inhaler Inhale 1-2 Puffs as directed every 4 hours as needed for Wheezing. 3 Inhaler 3 11/13/2010 11/23/2011 methylphenidate (RITALIN SR; METADATE ER; METHYLIN ER) 20 mg SR tabletIndications:Narcole psy Take 2 Tabs by mouth. in the morning at 8:00am 60 Tab 0 12/08/2010 01/01/2011 methylphenidate (RITALIN) 10 mg tabletIndications:Narcole psy Take 1 Tab by mouth. Take 1 tablet at noon 30 Tab 0 12/08/2010 01/01/2011 mometasone (NASONEX) 50 mcg/Actuation nasal spray 2 Sprays by Nasal route daily. 3 Inhaler 3 11/13/2010 12/09/2011 predniSONE (DELTASONE) 20 mg tabletIndications:Asthma Take 2 Tabs by mouth daily for 5 days. 10 Tab 3 11/13/2010 10/15/2011 pregabalin (LYRICA) 150 mg capsuleIndications:Chroni c back pain,Cervicalgia Take 1 Cap by mouth 3 times daily. 270 Cap 3 11/13/2010 05/19/2011 promethazine (PHENERGAN) 25 mg tabletIndications:GERD (gastroesophageal reflux disease) Take 1 Tab by mouth every 6 hours as needed for Nausea. 45 Each 3 11/13/2010 04/11/2012 ropinirole (REQUIP) 2 mg tabletIndications:Restles s leg syndrome Take 1 Tab by mouth at bedtime. 90 Each 3 11/13/2010 11/13/2011 sertraline (ZOLOFT) 100 mg tablet Take 1.5 Tabs by mouth daily. 135 Tab 3 11/13/2010 12/09/2011 sumatriptan (IMITREX) 50 mg tabletIndications:Migrain e Take 1 Tab by mouth once as needed for Migraine for 1 dose. Gets 9 tabs a month and uses them all 9 Tab 3 11/13/2010 02/18/2011 varenicline (CHANTIX) 1 mg tabletIndications:Tobacco abuse Take 1 Tab by mouth 2 times daily. 60 Each 2 08/11/2010 01/21/2011 zolpidem (AMBIEN) 10 mg tabletIndications:Insomni a Take 1 Tab by mouth at bedtime as needed for Sleep. 30 Each 5 11/13/2010 04/20/2011 documented as of this encounter Discharge Disposition Disposition Code Departure Means Destination Home or Self [facility] documented in this encounter Plan of Treatment Upcoming Encounters Date Type Department Care Team (Late st Contact Info) Description 06/29/2024 14:15 EDT Office Visit [facility] [address] [place] [address] Jean Munoz MD [address] [place] [phone] documented as of this encounter Visit Diagnoses Not on filedocumented in this encounter Care Teams Liquefaction And Regasification Helper Relationship Specialty Start Date End Date Jean Munoz MD [address] [place] [phone] PCP - General 12/31/08 Manny Rizzo MD [address] [place] [phone] 04/20/10 documented as of this encounter
--- OUTSIDE RECORDS SUMMARY | 2024-06-10 07:33 | XMS_ITS | Encounter Summary ---
Author Organization [facility] Address [address] [place] [address] Care Team Providers Care Border Police Name Role Phone Jean Munoz MD Primary Care Provider Manny Rizzo MD Unavailable Reason for Visit * Reason Onset Date Comments Medications Refill 01/01/2011 Encounter Details Date Type Department Care Team (Late st Contact Info) Description 01/01/2011 Refill [facility] Sleep Program - [address] [phone] Corrina Ac, RN [address] [place] [address] Medications Refill Social History Tobacco Use Types [...] the morning at 8:00am 60 Tab 0 01/01/2011 01/29/2011 methylphenidate (RITALIN) 10 mg tabletIndications:Narcole psy Take 1 Tab by mouth. Take 1 tablet at noon 30 Tab 0 01/01/2011 01/29/2011 documented in this encounter Miscellaneous Notes * Telephone Encounter - Corrina Ac RN - 01/01/2011 1639 EDT Pt to slat pickler her prescriptions tomorrow. documented in this encounter Plan of Treatment Upcoming Encounters Date Type Department Care Team (Late st Contact Info) Description 06/29/2024 14:15 EDT Office Visit [facility] [address] [place] [address] Jean Munoz MD [address] [place] [phone] documented as of this encounter Visit Diagnoses [...] mouth. Take 1 tablet at noon Reorder 12/08/2010 01/01/2011 methylphenidate (RITALIN SR; METADATE ER; METHYLIN ER) 20 mg SR tabletIndications:Narcol epsy Take 2 Tabs by mouth. in the morning at 8:00am Reorder 12/08/2010 01/01/2011 documented as of this encounter Care Teams Border Police Relationship Specialty Start Date End Date Jean Munoz MD [address] [place] [phone] PCP - General 12/31/08 Manny Rizzo MD [address] [place] [phone] 04/20/10 documented as of this encounter
--- OUTSIDE RECORDS SUMMARY | 2024-06-10 07:33 | XMS_ITS | Encounter Summary ---
Author Organization [facility] Address [address] [place] [address] Care Team Providers Care Charge Master Coordinator Name Role Phone Jean Munoz MD Primary Care Provider Manny Rizzo MD Unavailable Reason for Visit * Reason Onset Date Comments Medications Refill 05/22/2011 Encounter Details Date Type Department Care Team (Late st Contact Info) Description 05/22/2011 Refill [facility] Neurology - [address] [phone] Mik Caban MD [address] [place] [phone] Medications Refill Social History Tobacco Use [...] the morning at 8:00am 60 Tab 0 05/22/2011 05/26/2011 methylphenidate (RITALIN) 10 mg tabletIndications:Narcole psy Take 1 Tab by mouth. at noon. 30 Tab 0 05/22/2011 06/22/2011 documented in this encounter Miscellaneous Notes * Telephone Encounter - Corrina Ac RN - 05/26/2011 1124 EDT Pt stopped by Sleep clinic and stated the [facility] pharmacy does not have #60 of the Ritalin SR 30mg in stock, only #40. She is asking for a prescription for #40 and one for #20. 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 * Telephone Encounter - Elizabeth Oreilly - 05/22/2011 1344 EDT Refill requested for Ritalin SR 20mg - Takes 2 in am and Ritalin 10mg - Takes one in pm. Please call when scripts are ready to be picked up. Do not mail since her mail is always stolen. documented in this encounter Plan of Treatment Upcoming Encounters Date Type Department Care Team (Late st Contact Info) Description 06/29/2024 14:15 EDT Office Visit [address] [address] Jean Munoz MD [address] [place] [phone] documented as of this encounter Visit Diagnoses [...] 1 Tab by mouth. at noon. Reorder 04/23/2011 05/22/2011 methylphenidate (RITALIN SR; METADATE ER; METHYLIN ER) 20 mg SR tabletIndications:Narcol epsy Take 2 Tabs by mouth. in the morning at 8:00am Reorder 04/23/2011 05/22/2011 documented as of this encounter Care Teams Charge Master Coordinator Relationship Specialty Start Date End Date Jean Munoz MD [address] [place] [phone] PCP - General 12/31/08 Manny Rizzo MD [address] [place] [address] 04/20/10 documented as of this encounter
--- OUTSIDE RECORDS SUMMARY | 2024-06-10 07:34 | XMS_ITS | Encounter Summary ---
Author Organization [facility] Address [address] [place] [address] Care Team Providers Care Chef Concierge Name Role Phone Jean Munoz MD Primary Care Provider Manny Rizzo MD Unavailable Reason for Visit * Reason Onset Date Comments Medications Refill 09/09/2010 Encounter Details Date Type Department Care Team (Late st Contact Info) Description 09/09/2010 Refill [facility] Neurology - [address] [phone] Mik Caban MD [address] [place] [phone] Medications Refill Social History Tobacco Use Types Packs/Day Years Used Date Smoking Tobacco: Every Day Cigarettes 0.5 30 Comments:quit 10/21, Rx verin icline x3 months, smoking again after Alcohol Use Standard Drinks/Week Comments Yes 0 [...] decisions? (5 years old or older) Yes 11/21/2009 documented as of this encounter Miscellaneous Notes * Telephone Encounter - Corrina Ac RN - 09/09/2010 1128 EST Opened new encounter for this refill request. * Telephone Encounter - Elizabeth Oreilly - 09/09/2010 1058 EST Requesting written scripts for Ritalin SR 20mg (Takes 2 at 8am) and Ritalin 10mg (Takes 1 in PM) kaity mailed to home: [address] [facility] [address] [address]. Needs LAUREN since she will be out of med by this weekend. documented in this encounter Plan of Treatment Upcoming Encounters Date Type Department Care Team (Late st Contact Info) Description 06/29/2024 14:15 EDT Office Visit [facility] [address] [place] [address] Jean Munoz MD [address] [place] [phone] documented as of this encounter Visit Diagnoses Not on filedocumented in this encounter Care Teams Chef Concierge Relationship Specialty Start Date End Date Jean Munoz MD [address] [place] [phone] PCP - General 12/31/08 Manny Rizzo MD [address] [place] [phone] 04/20/10 documented as of this encounter
--- OUTSIDE RECORDS SUMMARY | 2024-06-10 07:34 | XMS_ITS | Encounter Summary ---
Author Organization [facility] Address [address] [place] [address] Care Team Providers Care Information Technology Audit Manager Name Role Phone Jean Munoz MD Primary Care Provider Manny Rizzo MD Unavailable Encounter Details Date Type Department Care Team (Late st Contact Info) Description 09/30/2010 17:13 EST - 09/30/2010 23:59 EST Hospital Encounter [facility] [address] [place] [address] Leonor Duque MD [address] [facility], [address] [place] [phone] Facial abscess Discharge Disposition: Home or Self Care Social [...] for Constipation. 09/24/2010 baclofen (LIORESAL) 10 mg tabletIndications:Lumbo sacral spondylosis without myelopathy Take 0.5 Tabs by mouth 2 times daily as needed (spasm). 30 Tab 1 08/06/2010 10/02/2010 cephALEXin (KEFLEX) 500 mg capsule Take 1 Cap by mouth 4 times daily for 10 days. 40 Cap 0 09/30/2010 10/10/2010 fluticasone-salmeterol (ADVAIR DISKUS) 500-50 mcg/Dose diskus inhaler Inhale 1 Puff as directed 2 times daily. 1 Each 5 05/08/2010 11/13/2010 hydrocodone-acetaminoph en (LORTAB;VICODIN) 5-500 mg per tablet Take 1 Tab by mouth every 6 hours as needed for Pain. 30 Tab 0 09/30/2010 10/06/2010 levalbuterol (XOPENEX HFA) 45 mcg/Actuation inhaler Inhale 1-2 Puffs as directed every 4 hours as needed for Wheezing. 1 Inhaler 5 05/08/2010 11/13/2010 methylphenidate (RITALIN SR; METADATE ER; METHYLIN ER) 20 mg SR tablet Take 2 Tabs by mouth. in the morning at 8:00am 60 Tab 0 09/09/2010 10/07/2010 methylphenidate (RITALIN) 10 mg tablet Take 1 Tab by mouth daily. Take 1 tablet at noon 30 Tab 0 09/09/2010 10/07/2010 mometasone (NASONEX) 50 mcg/Actuation nasal spray 2 Sprays by Nasal route daily. 3 Inhaler 3 12/12/2009 11/13/2010 predniSONE (DELTASONE) 20 mg tablet Take 2 Tabs by mouth daily for 5 days. 10 Tab 1 05/08/2010 10/29/2010 predniSONE (DELTASONE) 5 mg tablet Take 20 mg/kg by mouth as needed. 09/17/2010 11/13/2010 pregabalin (LYRICA) 150 mg capsuleIndications:Clinical Trial Leader majo back pain,Cervicalgia Take 1 Cap by mouth 3 times daily. 270 Cap 2 04/21/2010 10/30/2010 promethazine (PHENERGAN) 25 mg tabletIndications:GERD (gastroesophageal reflux disease) Take 1 Tab by mouth every 6 hours as needed for Nausea. 45 Each 0 09/30/2010 11/13/2010 ropinirole (REQUIP) 2 mg tabletIndications:Restl ess leg syndrome Take 1 Tab by mouth at bedtime. 90 Each 0 08/13/2010 11/13/2010 sertraline (ZOLOFT) 100 mg tablet Take 1.5 Tabs by mouth daily. 45 Tab 5 07/02/2010 11/13/2010 sulfamethoxazole-trimet hoprim (BACTRIM DS) 800-160 mg per tablet Take 1 Tab by mouth every 12 hours for 10 days. 20 Tab 0 09/30/2010 10/06/2010 sumatriptan (IMITREX) 50 mg tabletIndications:Migra ine Take 1 Tab by mouth once as needed for Migraine for 1 dose. Gets 9 tabs a month and uses them all 9 Tab 2 08/11/2010 11/13/2010 varenicline (CHANTIX) 1 mg tabletIndications:Tobac co abuse Take 1 Tab by mouth 2 times daily. 60 Each 2 08/11/2010 01/21/2011 zolpidem (AMBIEN) 10 mg tabletIndications:Insom yesi Take 1 Tab by mouth at bedtime as needed for Sleep. 30 Each 2 08/11/2010 11/13/2010 documented as of this encounter Discharge Disposition Disposition Code Departure Means Destination Home or Self Shelter documented in this encounter Plan of Treatment Upcoming Encounters Date Type Department Care Team (Late st Contact Info) Description 06/29/2024 14:15 EDT Office Visit [facility] [address] [place] [address] Jean Munoz MD [address] [place] [phone] documented as of this encounter Procedures Procedure Name Priority Date/Time Associated Diagnosis Comments COMPLETE BLOOD COUNT AND DIFFERENTIAL Routine 09/30/2010 17:19 EST Facial abscess C REACTIVE PROTEIN Routine 09/30/2010 17 :19 EST Facial abscess COMPREHENSIVE METABOLIC PANEL (CMP) Routine 09/30/2010 17:19 EST Facial abscess documented in this encounter Results * COMPREHENSIVE METABOLIC PANEL (CMP) (09/30/2010 17:19 EST) Potassium 4.6 3.5 - 5.0 mEq/L [facility] Sodium 140 136 - 145 mEq/L [facility] Chloride 104 96 - 110 mEq/L [facility] CO2 24 24 - 32 mEq/L [facility] Total Alkaline Phosphatase 95 38 - 126 U/L [facility] Bilirubin, Total <0.5 0.2 - 1.3 mg/dl [facility] AST 21 15 - 46 U/L [facility] ALT 25 9 - 52 U/L [facility] Albumin 4.5 3.4 - 4.9 g/dl [facility] Total Protein 7.8 6.5 - 8.3 g/dl [facility] Creatinine 0.83 0.7 - 1.5 mg/dl [facility] GFR, Calculated >60 ml/min/1.7 3m2 [facility] BUN 13 10 - 26 mg/dl [facility] Calcium 9.3 8.5 - 10.5 mg/dl [facility] Calculated Calcium 9.2 8.5 - 10.5 mg/dl [facility] Glucose, Serum 94 70 - 100 mg/dl [facility] Fasting? No MARLA CHIN Blood specimen (specimen) 09/30/2010 17:19 EST 09/30/2010 17:20 EST Leonor Duque MD CHEMISTRY & BLOO D GAS ORDERABLES [facility] [address] [place] [address] * C-REACTIVE PROTEIN (09/30/2010 17:19 EST) C-Reactive Protein 0.9 <1.0 mg/dl [facility] Blood specimen (specimen) 09/30/2010 17:19 EST 09/30/2010 17:20 EST Leonor Duque MD CHEMISTRY & BLOO D GAS ORDERABLES [facility] [address] [place] [address] * (ABNORMAL) HEMAGRAM AND DIFFERENTIAL (09/30/2010 17:19 EST) WBC 7.77 4.0 - 12.4 K/cmm [facility] RBC 4.24 3.86 - 5.04 M/cmm [facility] Hemoglobin 14.3 11.6 - 15.2 gm/dl [facility] HCT 41.0 34.9 - 44.4 % [facility] MCV 97 81 - 98 fl [facility] MCH 33.7(H) 26.7 - 33.3 pg [facility] MCHC 34.9 32.1 - 35.9 gm/dl [facility] PLT 354(H) 141 - 320 K/cmm [facility] RDW-CV 13.5 11.7 - 14.6 % [facility] % Neutrophils 55.7 45.5 - 79.7 % [facility] % Lymphocytes 32.4 15.0 - 46.8 % [facility] % Monocytes 7.8 1.8 - 12.0 % [facility] % Eosinophils 3.5 0.6 - 6.9 % [facility] % Basophils 0.6 0.2 - 1.4 % [facility] ABS Neutrophils 4.33 2.20 - 8.85 K/cmm [facility] ABS Lymphs 2.52 1.09 - 3.30 K/cmm [facility] ABS Monocytes 0.60 0.1 - 0.8 K/cmm [facility] ABS Eosinophils 0.27 0.03 - 0.61 K/cmm [facility] ABS Basophils 0.05 0.01 - 0.11 K/cmm [facility] Type of Diff: Automated [facility] Blood specimen (specimen) 09/30/2010 17:19 EST 09/30/2010 17:20 EST Leonor Duque MD PACKAGES & DNA P SONIA ORDERABLES [facility] [address] [place] [address] documented in this encounter Visit Diagnoses Diagnosis Facial abscess Cellulitis and abscess of face Screening for osteoporosis- Primary Special screening for osteoporosis Primary narcolepsy without cataplexy Chronic pain syndrome Chronic low back pain Lumbago Chronic use of opiate for therapeutic purpose Pain medication agreement Encounter for long-term (current) use of other medications Screen for colon cancer Special screening for malignant neoplasms, colon documented in this encounter Care Teams Information Technology Audit Manager Relationship Specialty Start Date End Date Jean Munoz MD [address] [place] [phone] PCP - General 12/31/08 Manny Rizzo MD [address] [place] [phone] 04/20/10 documented as of this encounter
--- OUTSIDE RECORDS SUMMARY | 2024-06-10 07:34 | XMS_ITS | Encounter Summary ---
Author Organization [facility] Address [address] [place] [address] Care Team Providers Care Production Operations Manager Name Role Phone Jean Munoz MD Primary Care Provider Manny Rizzo MD Unavailable Reason for Visit * Reason Onset Date Comments Medications Refill 08/11/2010 Encounter Details Date Type Department Care Team (Late st Contact Info) Description 08/11/2010 Refill [facility] Neurology - [address] [id number] Rosita Mayfield, CHRIS Medications Refill Social History Tobacco Use [...] Yes 11/21/2009 documented as of this encounter Ordered Prescriptions Prescription Sig Dispensed Refills Start Date End Da te methylphenidate (RITALIN SR; METADATE ER; METHYLIN ER) 20 mg SR tablet Take 2 Tabs by mouth. Take 2 tablets in the morning at 8:00am 60 Tab 0 08/11/2010 09/09/2010 methylphenidate (RITALIN) 10 mg tablet Take 1 Tab by mouth daily. Take 1 tablet at noon 30 Tab 0 08/11/2010 09/09/2010 documented in this encounter Miscellaneous Notes * Telephone Encounter - Corrina Ac RN - 08/13/2010 0845 EST Mailed prescriptions to pt. * Telephone Encounter - Corrina Ac RN - 08/11/2010 2015 EST Spoke with pt, back in office on Wednesday am. To mail prescriptions out then. Pt agreed. * Telephone Encounter - Rosita Mayfield RN - 08/11/2010 0842 EST Needs RX for Ritalin SR 20mg--@ @0800 and Ritalin 10mg @ 1300 --mail to [address] [place] [address]--[address] [place] [id number]--ysa of med on Wednesday documented in this encounter Plan of Treatment Upcoming Encounters Date Type Department Care Team (Late st Contact Info) Description 06/29/2024 14:15 EDT Office Visit [facility] [address] [place] [address] Jean Munoz MD [address] [place] [address] documented as of this encounter Visit Diagnoses Not on filedocumented in this encounter Discontinued Medications Medication Sig Discontinue Reason Start Date End Da te methylphenidate (RITALIN) 10 mg tablet Take 1 Tab by mouth daily. Take 1 tablet at noon Reorder 07/08/2010 08/11/2010 methylphenidate (RITALIN SR; METADATE ER; METHYLIN ER) 20 mg SR tablet Take 2 Tabs by mouth. Take 2 tablets in the morning at 8:00am Reorder 07/08/2010 08/11/2010 documented as of this encounter Care Teams Production Operations Manager Relationship Specialty Start Date End Date Jean Munoz MD [address] [place] [phone] PCP - General 12/31/08 [place] [address] [place] [phone] 04/20/10 documented as of this encounter
--- OUTSIDE RECORDS SUMMARY | 2024-06-10 07:34 | XMS_ITS | Encounter Summary ---
Author Organization [facility] Address [address] [place] [address] Care Team Providers Care Personnel Coordinator Name Role Phone Jean Munoz MD Primary Care Provider Manny Rizzo MD Unavailable Reason for Visit * Reason Onset Date Comments Medications Refill 10/02/2010 Encounter Details Date Type Department Care Team (Late st Contact Info) Description 10/02/2010 Refill [facility] Interventional Pain [address] [place] [address] Dave Jeffers MD [employer] [address] [place] [address] Medications Refill Social History Tobacco Use Types [...] End Da te baclofen (LIORESAL) 10 mg tabletIndications:Lumbosac ral spondylosis without myelopathy Take 0.5 Tabs by mouth 2 times daily as needed (spasm). 30 Tab 1 10/02/2010 11/13/2010 documented in this encounter Miscellaneous Notes * Telephone Encounter - Antonella Manriquez - 10/02/2010 1044 EST Please call in to [facility] in [place]. documented in this encounter Plan of Treatment Upcoming Encounters Date Type Department Care Team (Late st Contact Info) Description 06/29/2024 14:15 EDT Office Visit [facility] [address] [place] [address] Jean Munoz MD [address] [place] [phone] documented as of this encounter Visit Diagnoses Diagnosis Lumbosacral spondylosis without myelopathy Screening for osteoporosis- Primary Special screening for [...] End Da te baclofen (LIORESAL) 10 mg tabletIndications:Lumbosa cral spondylosis without myelopathy Take 0.5 Tabs by mouth 2 times daily as needed (spasm). Reorder 08/06/2010 10/02/2010 documented as of this encounter Care Teams Personnel Coordinator Relationship Specialty Start Date End Date Jean Munoz MD [address] [place] [phone] PCP - General 12/31/08 Manny Rizzo MD [address] [place] [phone] 04/20/10 documented as of this encounter
--- OUTSIDE RECORDS SUMMARY | 2024-06-10 07:34 | XMS_ITS | Encounter Summary ---
Author Organization [facility] Address [address] [place] [address] Care Team Providers Care Distribution Associate Name Role Phone Jean Munoz MD Primary Care Provider Manny Rizzo MD Unavailable Reason for Visit * Reason Onset Date Comments Medications Refill 10/03/2010 Encounter Details Date Type Department Care Team (Late st Contact Info) Description 10/03/2010 Refill [facility] Infectious Disease - [facility] [address] [place], [place] [phone] Antonella Dillon MD [address] [place], [place] [phone] Medications Refill Social History Tobacco Use Types [...] Miscellaneous Notes * Telephone Encounter - Gina Esposito V RN - 10/06/2010 1010 EST Spoke with pt this am- did picker box operator refills on below. Pt confirms she will come to office appt this afternoon (sees Dr Duque) * Telephone Encounter - Floresita Cantu - 10/03/[address] Dillon was going to refill Cephalexin 500 mg and Bactrim DS. Stated the pharmacy does not have request as of yet. [facility] [place]. Liset can be reached at [phone]. documented in this encounter Plan of Treatment Upcoming Encounters Date Type Department Care Team (Late st Contact Info) Description 06/29/2024 14:15 EDT Office Visit [facility] Medicine [facility] [address] [place], [place] [phone] Jean Munoz MD [address] [place] [phone] documented as of this encounter Visit Diagnoses Not on filedocumented in this encounter Care Teams Distribution Associate Relationship Specialty Start Date End Date Jean Munoz MD [address] [place] [phone] PCP - General 12/31/08 Manny Rizzo MD [address] [place] [phone] 04/20/10 documented as of this encounter
--- OUTSIDE RECORDS SUMMARY | 2024-06-10 07:34 | XMS_ITS | Encounter Summary ---
Author Organization [facility] Address [address] [place] [address] Care Team Providers Care Monomer Purification Operator Name Role Phone Jean Munoz MD Primary Care Provider Manny Rizzo MD Unavailable Reason for Visit * Reason Comments Facial Swelling Encounter Details Date Type Department Care Team (Late st Contact Info) Description 09/17/2010 16:45 EST Office Visit [address] [address] Avery Erazo MD [address] [phone] Abscess of face (Primary Dx) Discharge Disposition: Auto Discharge Social [...] Sign Reading Time Taken Comments Blood Pressure 106/78 09/17/2010 1650 EST Pulse 76 09/17/2010 1650 EST Temperature 37.1 ??C (98.7 ??F) 09/17/2010 1650 EST Respiratory Rate - - Oxygen Saturation - - Inhaled Oxygen Concentration - - Weight - - Height - - Body Mass Index - - documented in this encounter Functional Status Cognitive Status Response Date of Assessm ent Because of a physical, menta l, or emotional condition, do you have serious difficulty concentrating, remembering, or making decisions? (5 years old or older) Yes 11/21/2009 documented as of this encounter Ordered Prescriptions Prescription Sig Dispensed Refills Start Date End Da te hydrocodone-acetaminophen (LORTAB;VICODIN) 5-500 mg per tabletIndications:Abscess of face Take 1-2 Tabs by mouth every 6 hours as needed for Pain. 20 Tab 0 09/17/2010 09/24/2010 cephALEXin (KEFLEX) 500 mg capsuleIndications:Abscess of face Take 1 Cap by mouth 4 times daily. 28 Cap 1 09/17/2010 09/19/2010 documented in this encounter Discharge Disposition Disposition Code Departure Means Destination Auto Discharge documented in this encounter Progress Notes * Avery Erazo MD - 09/17/2010 1722 EST S: Donalds like she had a pimple in her left cheek near the nose a couple of days ago, squeezed a lot of purulent matter out of it 2 days ago, yesterday and today but increasing swelling and doesn't feel well. Had abscess on face 10+ years ago that had to be drained. O: 1x3 cm area of induration and superficial erythema near nose and heading towards jawline. anesthwith lido 1% with epi, #11 blade used to make small opening, small amount of purulent matter expressed A: Cellulitis and abscess P: Cephalexin 500 mg qid x 7days Warm moist heat several times a day F/u tomorrow if not improved or develops fever documented in this encounter Plan of Treatment Upcoming Encounters Date Type Department Care Team (Late st Contact Info) Description 06/29/2024 14:15 EDT Office Visit [address] [address] Jean Munoz MD [address] [place] [phone] documented as of this encounter Visit Diagnoses Diagnosis Abscess of face- Primary Cellulitis and abscess of face Screening for [...] Sig Dispensed Refills Start Date End Date predniSONE (DELTASONE) 5 mg tablet Take 20 mg/kg by mouth as needed. 09/17/2010 11/13/2010 added in this encounter Care Teams Monomer Purification Operator Relationship Specialty Start Date End Date Jean Munoz MD [address] [place] [phone] PCP - General 12/31/08 Manny Rizzo MD [address] [place] [phone] 04/20/10 documented as of this encounter
--- OUTSIDE RECORDS SUMMARY | 2024-06-10 07:34 | XMS_ITS | Encounter Summary ---
Author Organization [facility] Address [address] [place] [address] Care Team Providers Care Protection Specialist Name Role Phone Jean Munoz MD Primary Care Provider Manny Rizzo MD Unavailable Reason for Visit * Reason Comments Follow-up Encounter Details Date Type Department Care Team (Late st Contact Info) Description 10/29/2010 11:[address] [facility] Infectious Disease - [address] [id number] Unknown, Provider, Aye Duque MD [address] [facility], [address] [place] [address] Diarrhea (Primary Dx) Social History Tobacco Use Types [...] Sign Reading Time Taken Comments Blood Pressure 138/82 10/29/2010 1050 EST Pulse - - Temperature 37.2 ??C (98.9 ??F) 10/29/2010 1050 EST Respiratory Rate - - Oxygen Saturation - - Inhaled Oxygen Concentration - - Weight 91.6 kg (202 lb) 10/29/2010 1050 EST Height - - Body Mass Index 34.67 10/29/2010 0859 EST documented in this encounter Functional Status [...] for Pain. 27 Tab 0 10/29/2010 01/21/2011 documented in this encounter Progress Notes * Aye Duque MD - 10/29/2010 1133 EST Infectious Disease Outpatient Follow Up Note Date of Service: 10/29/2010 Followup For: Facial cellulitis CC: facial pain HPI: Liset returns to the infectious disease clinic for followup of her left cheek abscess. She was last seen in our clinic on the , at which time all of her laboratory indices were normal except for aslightly elevated platelet count. In addition, she says she has continued to have some nausea, and of late some loose stools associated with crampy abdominal Pain. At our last visit on 10/06 she stillhad some facial pain and swelling, at that visit we elected to repeat an u/s and changed her bactrim to oral doxycyline. She has been off all abx therapy for the last week and has noticed improvementin this area over the last week. She continues to have facial pain mostly associated with the inside of her mouth where she feels like she can 'feel' the bump on the outside of her cheek. She has HadSome night sweats recently, but no fevers, and has not noticed any erythema or swelling over the left side of her face She feels her visual issues have improved. She continues on her Pain medications ROS: ten point review of systems was conducted and is otherwise negative except as described above in the HPI Medications Current outpatient prescriptions Medication Sig Dispense Refill ??? methylphenidate (RITALIN) 10 mg tablet Take 1 Tab by mouth. Take 1 tablet at noon 30 Tab 0 ??? methylphenidate (RITALIN SR; METADATE ER; METHYLIN ER) 20 mg SR tablet Take 2 Tabs by mouth. inthe morning at 8:00am 60 Tab 0 ??? hydrocodone-acetaminophen (LORTAB;VICODIN) 5-500 mg per tablet Take 1 Tab by mouth every 6 hours as needed for Pain. 27 Tab 0 ??? DISCONTD: methylphenidate (RITALIN SR; METADATE ER; METHYLIN ER) 20 mg SR tablet Take 2 Tabs bymouth. in the morning at 8:00am 60 Tab 0 ??? baclofen (LIORESAL) 10 mg tablet Take 0.5 Tabs by mouth 2 times daily as needed (spasm). 30 Tab1 ??? promethazine (PHENERGAN) 25 mg tablet Take 1 Tab by mouth every 6 hours as needed for Nausea. 45 Each 0 ??? docusate sodium (COLACE) 100 mg capsule Take 1 Cap by mouth 2 times daily as needed for Constipation. ??? predniSONE (DELTASONE) 5 mg tablet Take 20 mg/kg by mouth as needed. ??? ropinirole (REQUIP) 2 mg tablet Take 1 Tab by mouth at bedtime. 90 Each 0 ??? sumatriptan (IMITREX) 50 mg tablet Take 1 Tab by mouth once as needed for Migraine for 1 dose. Gets 9 tabs a month and uses them all 9 Tab 2 ??? zolpidem (AMBIEN) 10 mg tablet Take 1 Tab by mouth at bedtime as needed for Sleep. 30 Each 2 ??? varenicline (CHANTIX) 1 mg tablet Take 1 Tab by mouth 2 times daily. 60 Each 2 ??? sertraline (ZOLOFT) 100 mg tablet Take 1.5 Tabs by mouth daily. 45 Tab 5 ??? fluticasone-salmeterol (ADVAIR DISKUS) 500-50 mcg/Dose diskus inhaler Inhale 1 Puff as directed2 times daily. 1 Each 5 ??? levalbuterol (XOPENEX HFA) 45 mcg/Actuation inhaler Inhale 1-2 Puffs as directed every 4 hours as needed for Wheezing. 1 Inhaler 5 ??? pregabalin (LYRICA) 150 mg capsule Take 1 Cap by mouth 3 times daily. 270 Cap 2 ??? mometasone (NASONEX) 50 mcg/Actuation nasal spray 2 Sprays by Nasal route daily. 3 Inhaler 3 Vital Signs: BP 138/82 Temp 37.2 ??C (98.9 ??F) Wt 91.627 kg (202 lb) Exam: No evidence of thrush or oral lesions Left nasolabial fold, well Visualized no evidence of warmth or erthema or induration surrounding this area. Does have palpable area of firmness at most distal aspect, no change compared with previous Abdomen soft, mildly TTP in bilateral Lower quandrants No rash EOMI and full no visual Field cuts noted Data Review: Laboratory data reviewed. Pertinent positives include: Labs: 09/30/10 wbc 7.77, hct 41, plt 354, creat 0.83, CRP less than 0.5 U/S of left cheek 10/13/10 Residual subcutaneous soft tissue edema of the left cheek without evidence of a significant persistent fluid collection. Assessment: Hx of recent facial cellulitis- overall this appears to have completely resolved. She still has an area of palpable firmness in her left cheek- but no drainable Collections. She received over 4 weeksof abx and I think this has certainly improved. I am slightly confused as to why she has so much pain, as I cannot see any reason for this clinically. I think this merits follow up. Her last inflammatory markers were completely negative and she is due to follow up with ENT in a few weeks. I told her it makes sense to follow her clinically and to see her back after her ENT appointment. Diarrhea- I would be worried that we have given her C dif, so we should plan on checking this today Pain- again, seems like quite a bit of pain for what appears to be a relatively normal exam. I did give her a refill on her pain meds, but I think we need to wean these off because if her pain is really that severe than we should be looking for other etiologies Recommendations: 1) send stool for C dif 2) She should remain off abx and follow the area Clinically 3) I did refill her pain meds, but I think We should be weaning these down/off 4) follow up with ENT 5) call us with worsening erythema or warmth, fevers or chills. 6) Follow up with optho as scheduled AYE DUQUE MD 10/29/2010 11:27 documented in this encounter Plan of Treatment Upcoming Encounters Date Type Department Care Team (Late st Contact Info) Description 06/29/2024 14:15 EDT Office Visit [facility] [address] [place] [address] Jean Munoz MD [address] [place] [address] documented as of this encounter Procedures Procedure Name Priority Date/Time Associated Diagnosis Comments C. DIFFICILE PCR Routine 10/29/2010 11:1 7 EST Diarrhea documented in this encounter Results * C. DIFFICILE MOLECULAR DETECTION (10/29/2010 11:17 EST) C. difficile Molecular Detection Negative for C. difficile toxin detection by PCR. [facility] Stool specimen (specimen) 10/29/2010 11:17 EST 10/29/2010 12:09 EST Aye Duque MD MICROBIOLOGY - G ENERAL ORDERABLES [facility] [address] [place] [address] documented in this encounter Visit Diagnoses Diagnosis Diarrhea- Primary Screening for osteoporosis- Primary Special screening [...] 6 hours as needed for Pain. Reorder 10/20/2010 10/29/2010 documented as of this encounter Care Teams Protection Specialist Relationship Specialty Start Date End Date Jean Munoz MD [address] [place] [phone] PCP - General 12/31/08 Manny Rizzo MD [address] [place] [phone] 04/20/10 documented as of this encounter
--- OUTSIDE RECORDS SUMMARY | 2024-06-10 07:34 | XMS_ITS | Encounter Summary ---
Author Organization [facility] Address [address] [place] [address] Care Team Providers Care Emergency Vehicle Operations Instructor Name Role Phone Jean Munoz MD Primary Care Provider Manny Rizzo MD Unavailable Reason for Visit * Reason Comments Back Pain low back pain Leg Pain left leg pain Encounter Details Date Type Department Care Team (Late st Contact Info) Description 11/12/2010 13:00 EST Office Visit [facility] Interventional Pain [address] [place] [address] Unknown, ProviderMD Yadira Rich, DO [address] [facility] [address] [place] [phone] Dave Jeffers MD [employer] [address] [place] [address] Low back pain; Degeneration of lumbar or lumbosacral intervertebral disc; Unspecified arthropathy, other unspecified sites; Lumbosacral spondylosis without myelopathy; Thoracic or lumbosacral neuritis or radiculitis, unspecified Social History Tobacco Use Types Packs/Day [...] Sign Reading Time Taken Comments Blood Pressure 132/90 11/12/2010 1347 EST Pulse 69 11/12/2010 1347 EST Temperature 36.3 ??C (97.4 ??F) 11/12/2010 1302 EST Respiratory Rate 16 11/12/2010 1302 EST Oxygen Saturation - - Inhaled Oxygen Concentration - - Weight 91.6 kg (202 lb) 11/12/2010 1302 EST Height 162.6 cm (5' 4) 11/12/2010 1302 EST Body Mass Index 34.67 11/12/2010 1302 EST documented in this encounter Functional Status Cognitive Status Response Date of Assessm ent Because of a physical, menta l, or emotional condition, do you have serious difficulty concentrating, remembering, or making decisions? (5 years old or older) Yes 09/19/2010 documented as of this encounter Patient Instructions * Patient Instructions* Mukesh Freeman RN - 11/12/2010 13:37 EST [facility] [place] [address] Patient Instructions You have had your bilateral lumbar Facet Steroid Injection. The purpose of this procedure [...] functions, please call our office at once. Patient Education Topic: Method: Handout and Verbal Taught to: Patient Barriers: None Outcomes: independent and verbalized understanding Signature:MUKESH FREEMAN RN If you have any questions about your block, please call documented in this encounter Ordered Prescriptions Prescription Sig Dispensed Refills Start Date End Da te baclofen (LIORESAL) 10 mg tabletIndications:Low back pain,Degeneration of lumbar or lumbosacral intervertebral disc,Arthropathy, unspecified, other specified sites,Lumbosacral spondylosis without myelopathy,Thoracic or lumbosacral neuritis or radiculitis, unspecified Take 0.5-1 Tabs by mouth 3 times daily as needed. 90 Tab 3 11/12/2010 03/20/2011 documented in this encounter Progress Notes * Dave Jeffers - 11/12/2010 1347 EST Patient Name: Liset Viera : 1960 Date of Service: 11/12/2010 Towing Pilot: Yadira Rich DO Mental Health Unit Lead Psychologist: Dave Jeffers MD Procedure: Lumbar facet joint injection at bilateral L4-L5 and L5-S1 Interval History: Ms. Viera presents at the request of Jean Munoz for evaluation and treatment of her chronic low back pain . The pain is primarily localized to the bilateral low back and radiates to the bilateral hips and left leg. This pain has been present for 2 year(s) and is described as dull aching, sharp and shooting in character. The average pain intensity is 7 /10 and is aggravated by standing, walking and beling in one position for too long including laying . changing positions, stretching, applying heat alleviates the pain. Associated symptoms include numbness of the top of the left foot . This pain has not responded to conservative measures. She continues to have B/L LBP with radiating pain to the LE B/L L>R. The pain radiates down the posterior aspct of the left thigh and crosses anteriorly down the butler to the top of the foot. In the right leg the pain travels down the posterior aspect of the thigh and terminates at the knee Allergies: Allergies Allergen Reactions ??? Toradol (Ketorolac Tromethamine) Hives ??? Motrin (Ibuprofen) Itching Review of Systems: Patient denies fevers, chills, nausea, vomitting, headaches, dizziness, or visual changes. Patient denies any known coagulopathies. Patient denies shortness of breath or chest pain. Patient denies bowel or bladder incontinence. Patient denies extremity weakness, numbness and tingling. Patient denies depression. Physical Examination: Vital signs: Patient Vitals in the past 24 hrs: BP Temp Temp src Pulse Resp Height Weight 11/12/10 1302 104/65 mmHg 36.3 ??C (97.4 ??F) Tympanic 64 16 162.6 cm (64) 91.627 kg (202 lb) General:awake, alert, orientedX3 and no apparent distress Musculoskeletal: Gait: Normal, Lumbar Spine: paraspinal tenderness at the bilateral lower levels and Patricks is negative on the left, Patricks is negative on the right, SLT is negative on the left and SLT is negative on the right Neuro: Strength Exam: bilateral Hip Flexors, Plantar Flexion and Dorsiflexion 5/5 +Facet loading Assessment: Encounter Diagnoses Name Primary? Low back pain ??? Degeneration of lumbar or lumbosacral intervertebral disc ??? Unspecified arthropathy, other unspecified sites ??? Lumbosacral spondylosis without myelopathy ??? Thoracic or lumbosacral neuritis or radiculitis, unspecified Plan: Proceed with therapeutic facet joint injections at bilateral L4-L5 and L5-S1 Follow up: PRN Would recommend Amitriptyline 10mg PO qHS for more restful sleep and aid for neuropathic pain but will leave this to the descrection of Dr. Munoz Procedure: The patient gave informed written consent to proceed with this procedure following a detailed discussion of the risks and benefits associated with lumbar facet joint injection. The patient was then placed in the prone position, the skin over the lumbosacral area was prepped with chlorhexadine, and the site was draped with sterile towels. Strict sterile technique was maintained throughout the procedure. A mckee moment was performed with full staff present to identify the patient, verify the procedure being performed, and review allergies. Flouroscopy was used to identify the lumbar anatomy and align the facet joints. The skin and subcutaneous tissue over the bilateral L4-L5 and L5-S1 facet joints was anesthetized with 2% lidocaine. A 22 guage 5.0 inch spinal needle was inserted under fluoroscopic guidance using coaxial technique into each of the aforementioned facet joints. After negative aspiration, each joint was injected with 1mls 0.5% Bupivacaine and 20 mg Depo-Medrol. (A Total of 80mg Depo-Medrol used) There were no paresthesias during needle placement and aspiration was negative at all times. The patient tolerated the procedure well, there were no apparent complications, and she was discharged in stable condition. Written and verbal discharge instructions were reviewed with the patient prior to discharge. Attending attestation: I saw and examined the patient with the resident/fellow. I agree with the findings and plan of care documented in the resident's/fellow's note. In addition, I was present and participated during the entire procedure. YADIRA RICH MD * Telma Jones - 11/12/2010 1306 EST [facility] Rooming Note Does patient have a Locomotive Repairer Diesel? yes Is patient NPO? (Solids since midnight [...] * Scanned Note-Null - Inpatient, Physician - 11/13/2010 1617 EST documented in this encounter Plan of Treatment Upcoming Encounters Date Type Department Care Team (Late st Contact Info) Description 06/29/2024 14:15 EDT Office Visit [facility] [address] [place] [address] Jean Munoz MD [address] [place] [address] documented as of this encounter [...] documented in this encounter Care Teams Emergency Vehicle Operations Instructor Relationship Specialty Start Date End Date Jean Munoz MD [address] [place] [address] PCP - General 12/31/08 Manny Rizzo MD [address] [place] [address] 04/20/10 documented as of this encounter
--- OUTSIDE RECORDS SUMMARY | 2024-06-10 07:34 | XMS_ITS | Encounter Summary ---
Author Organization [facility] Address [address] [place] [address] Care Team Providers Care Estate Planning Paralegal Name Role Phone Jean Munoz MD Primary Care Provider Manny Rizzo MD Unavailable Reason for Visit * Reason Onset Date Comments Medications Refill 10/20/2010 Encounter Details Date Type Department Care Team (Late st Contact Info) Description 10/20/2010 Refill [facility] Infectious Disease - [facility] [address] [place], [place] [phone] Leonor Duque MD [address] [facility], [address] [place] [address] Medications Refill Social History Tobacco Use Types [...] Notes * Telephone Encounter - Gina Esposito RN - 10/20/[address] Duque: Can see pt Oct 29 at 11am. Will rx more vicodin (5/500) until this appt: #27 tabs called to [facility]. Pt agrees to above plan * Telephone Encounter - Shruthi Groves RN - 10/20/2010 1145 EST Liset states that she continues to have pain in right cheek. Even though the swelling has decreased substantially, she states there continues to be a smaller hard raised area which causes her pain. Last RX for #30 tabs Vicodin written on 10/06/10 when she was seen in ID clinic. Patient states she hasbeen taking it 3 x's daily. She has tried a few times to taper one in AM , skips afternoon and endsup doubling in evening time due to discomfort. She states she has completed her Doxycycline 100 mg BID. She has an appointment in pain clinic 10/24/10 for back problem. She states she gets injections in her back. * Telephone Encounter - Carolina Willard - 10/20/2010 1034 EST Patient would like to be called when this has been sent in. [phone] documented in this encounter Plan of Treatment Upcoming Encounters Date Type Department Care Team (Late st Contact Info) Description 06/29/2024 14:15 EDT Office Visit [facility] [address] [place] [address] Jean Munoz MD [address] [place] [phone] documented as of this encounter Visit Diagnoses Not on filedocumented in this encounter Care Teams Estate Planning Paralegal Relationship Specialty Start Date End Date Jean Munoz MD [address] [place] [phone] PCP - General 12/31/08 Manny Rizzo MD [address] [place] [phone] 04/20/10 documented as of this encounter
--- OUTSIDE RECORDS SUMMARY | 2024-06-10 07:34 | XMS_ITS | Encounter Summary ---
Author Organization [facility] Address [address] [place] [address] Care Team Providers Care Design And Sales Consultant Name Role Phone Jean Munoz MD Primary Care Provider Manny Rizzo MD Unavailable Reason for Referral * Consult (Routine) - Closed Specialty Diagnoses / Procedures Referred By [facility] Referred To Contact Ophthalmology Diagnoses Blurred vision Antonella Dillon MD [address] [place] [address] [facility] Ophthalmology [address] [place] [address] Referral ID Status Reason Start Date Expiration Date V isits Requested Visits Authorized [id number] Closed Specialty Services Required 09/30/2010 1 1 Question Answer Reason for Request: REcent facial abscess, sinus pressure. Now with blurring of vision. Comments Patient with new vision changes, nausea, facial pressure, s/p recent facial abscess. No obvious PROPULSION GENERATOR REPAIRER lesions via CT. Unsure if related. Please evaluate vision, retina. Reason for Visit * Reason Comments Follow-up Encounter Details Date Type Department Care Team (Late Contact Info) Description 09/30/2010 16:00 EST Office Visit [facility] Infectious Disease - [address] [phone] Unknown, Provider, Leonor Duque MD [address] [facility], Level [address] [place] [phone] Antonella Dillon MD [address] [place], [place] [phone] Facial abscess (Primary Dx); Blurred vision; GERD (gastroesophageal reflux disease) Social History Tobacco [...] Sign Reading Time Taken Comments Blood Pressure 128/88 09/30/2010 1536 EST Pulse - - Temperature 36.9 ??C (98.4 ??F) 09/30/2010 1536 EST Respiratory Rate - - Oxygen Saturation - - Inhaled Oxygen Concentration - - Weight 87.5 kg (192 lb 14.4 oz) 09/30/2010 1536 EST Height - - Body Mass Index 33.11 07/14/2010 1024 EDT documented in this encounter Functional [...] for Pain. 30 Tab 0 09/30/2010 10/06/2010 promethazine (PHENERGAN) 25 mg tabletIndications:GERD (gastroesophageal reflux disease) Take 1 Tab by mouth every 6 hours as needed for Nausea. 45 Each 0 09/30/2010 11/13/2010 cephALEXin (KEFLEX) 500 mg capsule Take 1 Cap by mouth 4 times daily for 10 days. 40 Cap 0 09/30/2010 10/10/2010 sulfamethoxazole-trimethop rim (BACTRIM DS) 800-160 mg per tablet Take 1 Tab by mouth every 12 hours for 10 days. 20 Tab 0 09/30/2010 10/06/2010 documented in this encounter Progress Notes * Antonella Rai MD - 10/09/2010 1102 EST DIVISION OF INFECTIOUS DISEASE PROGRESS/FOLLOWUP NOTE - 10/03/2010 HISTORY OF PRESENT ILLNESS: 49-year-old female who presents today in followup for facial abscess and associated cellulitis. Briefly, the patient was admitted to [facility] on September 19 after several days of worsening pain, edema, and induration of left facial abscess and surrounding cellulitis. She noted pustule and attempted to express the purulent material herself. Additional efforts at [facility] were performed at her PCP's office on September 17. However, despite these efforts and initiation of oral antibiotics, she continued to have increase in pain, edema. She was subsequently admitted and started on antibiotics, initially clindamycin and then transitioned to IV vancomycin. We were asked to consult given ongoing edema and pain and redness and assistance with planning for outpatient antibiotic regimen. She slowly improved during her stay in the hospital but continued to have an indurated area, particularly at the inferior aspect of her left cheek. She had ongoing pain at the time of her discharge but was able to tolerate both p.o. Bactrim as well as oral cephalexin which wereprescribed upon her discharge. No microbiology was ever identified as the drainage she initially noted subsided. There was concern that she could have resistant staph aureus. She was discharged on oral Bactrim-DS b.i.d. as well as Keflex given lack of microbiology and need to cover both resistant staph as well as strep organisms. The patient was discharged home on 09/21 and returns today in followup. In general, she reports that the swelling of her cheek has continued to subside. She does continue to have considerable pain, although states that this is less. She does continue to need pain medication, particularly at night to help with sleep. She does note some blurring vision, but the vertical diplopia she was describing in the hospital has subsided. She has ongoing intermittent headaches, but hard to distinguish as she has a history of chronic migraine to begin with. She describes current headache as somewhat different and really feels more frontal, as compared to how her usual migrainespresent. She has occasionally noted low-grade fever and some mild sweats. Has had some nausea, although no vomiting. She has been able to tolerate her p.o. cephalexin and Bactrim without difficulty. PAST MEDICAL HISTORY: Notable for narcolepsy, neck pain, degenerative disk disease, reflux, depression, GERD, migraine, peptic ulcer disease, asthma, restless leg, ongoing tobacco use, fatty liver, chronic pain and arthritis. MEDICATIONS: Sulfamethoxazole Trimethoprim 1 DS p.o. b.i.d. q. 12h. Cephalexin 500 mg p.o. q.i.d. She is currently day 10 of antibiotic therapy. Promethazine. Vicodin. Docusate. Methylpenidate. Requip. Sumatriptan. Zolpidem. Varenicline Sertraline. Advair. Xopenex. Lyrica. Nasonex. ALLERGIES: TORADOL, MOTRIN. SOCIAL HISTORY: Really unchanged. Lives in [place] and is . 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 She is currently unemployed. Ongoing tobacco use. OBJECTIVE: Temperature is 36.9. Blood pressure is 128/88. Her weight is 87.5 kilos. In general, sheis well-appearing, in no acute distress. Has had subsequent decrease in edema along the nasolabial fold of her left cheek and is almost symmetric as compared to her right cheek. The erythema has subsided dramatically in this same region. There is dramatic softening of the linear induration that spans from just lateral to her nares inferior towards the corner of her mouth. This region is barely palpable. She also has an area of induration that is more rounded, although the shape of this has dramatically changed and is now more linear and dramatically decreased in size. She does continue to seem somewhat tender but the area is really not warm. Her oral mucosa, buccal mucosa is intact. No obvious oral lesions are noted. She has some symmetric cervical nodes although no longer tender on the left. Dramatically improved. Cranial nerve exam is intact. LABORATORIES: No labs noted and no labs to review with at this point. IMPRESSION AND PLAN: 1. Facial abscess with surrounding cellulitis. Although patient continues to have significant pain,induration and erythema related to the abscess and cellulitis continue to dramatically improve on her current oral regimen. No micro was available at this time thus unable to simplify her regimen. Does have ongoing induration, particularly at the base of the lesion, which although is improved, feelwould warrant ongoing therapy. Would treat the patient for another 10 days upon completion of her current prescription. No evidence of fluctuance that would warrant additional drainage and feel that trauma with the attempt would probably cause more harm. I am somewhat concerned about her ongoing nausea and do obviously worry that she could have PROPULSION GENERATOR REPAIRER manifestation given the location of this lesion and her own self expression of the purulent material when the symptoms first began with possible spread into the PROPULSION GENERATOR REPAIRER venules given the drainage. However, patient seems to be functioning quite well with resolution of her vision issues, ability to read and tolerate p.o. therapy. Her neurologic function and exam are unchanged. Have provided her with additional pain medications, especially as the weather is poor and she will be unable to get home and has few pain medications left. I provided her with Vicodin 5/500 1 p.o. q. 6 p.r.n., dispensed #30 without refills. Additionally, provided her with Ph energan 25 mg p.o. q. 6 p.r.n., dispense #45. Discussed with her the possible adverse effects of these medications. At this point, have also extended her antibiotic course both with cephalexin and the Bactrim for an additional ten days. She will continue with these and follow up with us on Wednesday the . I saw and examined the patient with the resident/fellow. I agree with the findings and plan of caredocumented in the resident's/fellow's note. Edited and Electronically Signed by Leonor Duque MD 10/09/2010 11:02 Electronically Reviewed by Antonella Dillon MD 10/06/2010 09:04 Antonella Dillon MD Leonor Duque MD - Antonella Dillon MD - AN Job ID: SM Doc ID: [id number] [facility] Doc ID: [id number] cc: MD Shell Villar MD * Antonella Rai MD - 09/30/2010 1620 EST This office note has been dictated. documented in this encounter Plan of Treatment Upcoming Encounters Date Type Department Care Team (Late st Contact Info) Description 06/29/2024 14:[address] [facility] [address] [place] [address] Jean Munoz MD [address] [place] [phone] Scheduled Referrals Name Type Priority Associated Diagnoses Order Schedule AMB CONSULT OPHTHALMOLOGY Outpatient Referral Routine Blurred vision Ordered: 09/30/2010 documented as of this encounter Results * [...] [facility] GFR, Calculated >60 ml/min/1.7 3m2 [facility] BUN 13 10 - 26 mg/dl [facility] Calcium 9.3 8.5 - 10.5 mg/dl [facility] Calculated Calcium 9.2 8.5 - 10.5 mg/dl [facility] Glucose, Serum 94 70 - 100 mg/dl [facility] Fasting? No [facility] Blood specimen (specimen) 09/30/2010 17:19 EST 09/30/2010 17:20 EST Leonor Duque MD CHEMISTRY & BLOO D GAS ORDERABLES Performing Organization Address [facility] Co de Phone Number [facility] [address] [place] [address] * C-REACTIVE PROTEIN (09/30/2010 17:19 EST) C-Reactive Protein 0.9 <1.0 mg/dl [facility] Blood specimen (specimen) 09/30/2010 17:19 EST 09/30/2010 17:20 EST Leonor Duque MD CHEMISTRY & BLOO D GAS ORDERABLES Performing Organization Address [facility] de Phone Number [place] [address] * (ABNORMAL) HEMAGRAM AND DIFFERENTIAL (09/30/2010 17:19 EST) WBC 7.77 4.0 - 12.4 K/cmm [facility] RBC 4.24 3.86 - 5.04 M/cmm [facility] Hemoglobin 14.3 11.6 - 15.2 gm/dl [facility] HCT 41.0 34.9 - 44.4 % [facility] MCV 97 81 - 98 fl [facility] MCH 33.7(H) 26.7 - 33.3 pg [facility] MCHC 34.9 32.1 - 35.9 gm/dl [facility] PLT 354(H) 141 - 320 K/cmm [facility] RDW-CV 13.5 11.7 - 14.6 % [...] Leonor Duque MD PACKAGES & DNA P ROBE ORDERABLES Performing Organization Address City/State/[facility] Co de Phone Number [facility] [address] [place] [address] documented in this encounter Visit Diagnoses Diagnosis Facial abscess- Primary Cellulitis and abscess of face Blurred vision Other specified visual disturbances GERD (gastroesophageal reflux disease) Esophageal reflux Screening [...] Discontinue Reason Start Date End Da te sulfamethoxazole-trimeth oprim (BACTRIM DS) 800-160 mg per tablet Take 1 Tab by mouth every 12 hours for 10 days. Reorder 09/24/2010 09/30/2010 cephALEXin (KEFLEX) 500 mg capsule Take 1 Cap by mouth 4 times daily for 10 days. Reorder 09/24/2010 09/30/2010 promethazine (PHENERGAN) 25 mg tabletIndications:GERD (gastroesophageal reflux disease) Take 1 Tab by mouth every 6 hours as needed for Nausea. Reorder 08/11/2010 09/30/2010 oxycodone-acetaminophen (PERCOCET) 5-325 mg per tablet Take 1-2 Tabs by mouth every 4 hours as needed for Pain. Alternate therapy 09/24/2010 09/30/2010 documented as of this encounter Care Teams Design And Sales Consultant Relationship Specialty Start Date End Date Jean Munoz MD [address] [place] [phone] PCP - General 12/31/08 Manny Rizzo MD [address] [place] [phone] 04/20/10 documented as of this encounter
--- OUTSIDE RECORDS SUMMARY | 2024-06-10 07:34 | XMS_ITS | Encounter Summary ---
Author Organization [facility] Address [address] [place] [address] Care Team Providers Care Bilingual Operator Name Role Phone Jean Munoz MD Primary Care Provider Manny Rizzo MD Unavailable Reason for Visit * Reason Comments Sleep Disorder Narcolepsy without c ataplexy Encounter Details Date Type Department Care Team (Late st Contact Info) Description 10/29/2010 9:00 EST Office Visit [facility] Neurology - [address] [phone] Loi Caban MD [address] [place] [phone] Narcolepsy (Primary Dx) Discharge Disposition: Auto Discharge Social [...] Sign Reading Time Taken Comments Blood Pressure 110/66 10/29/2010 0859 EST Pulse 76 10/29/2010 0859 EST Temperature - - Respiratory Rate 16 10/29/2010 0859 EST Oxygen Saturation - - Inhaled Oxygen Concentration - - Weight 91.6 kg (202 lb) 10/29/2010 0859 EST Height 162.6 cm (5' 4) 10/29/2010 0859 EST Body Mass Index 34.67 10/29/2010 0859 EST [...] the morning at 8:00am 60 Tab 0 11/07/2010 12/01/2010 methylphenidate (RITALIN) 10 mg tabletIndications:Narcole psy Take 1 Tab by mouth. Take 1 tablet at noon 30 Tab 0 10/29/2010 12/01/2010 documented in this encounter Discharge Disposition Disposition Code Departure Means Destination Auto Discharge documented in this encounter Progress Notes * Loi Caban III, MD - 10/30/2010 1444 EST NEUROLOGY HEALTH CARE SERVICE PROGRESS/FOLLOWUP NOTE - 10/29/2010 SUBJECTIVE: Liset Viera returns today for followup of her narcolepsy without cataplexy. She was last seen 01/28/2010. For her narcolepsy she is taking Ritalin-SR 20 mg tablets, 2 in the morning at 8a.m., and Ritalin instant release 10 mg tablets, 1 tablet at 12 p.m. to 1 p.m. for her narcolepsy. She is doing well. MEDICATIONS: Her other medications include: Vicodin, she estimates she takes twice a week. Baclofen 5 mg, she is taking a couple of times a day. Phenergan p.r.n. Colace. Prednisone 5 mg tablets, 4 of them p.r.n. Ropinirole 2 mg tablets at bedtime. Imitrex 50 mg p.r.n. headache. Ambien 10 mg at bedtime. Sertraline 100 mg tablet, 1-1/2 tablets daily. Advair. Xopenex. Lyrica 150 mg tablets 3 times daily. Nasonex. OBJECTIVE: She is in no acute distress. Language: Unremarkable. Affect: Unremarkable. Blood pressure 110/66, pulse 76, respirations 16. Weight 202 pounds, height 5 feet 4 inches. Denies pain. She has no nystagmus, dysarthria or ataxia. IMPRESSION: Narcolepsy without cataplexy verified by [facility] in 12/30/98. PLAN: Continue Ritalin-SR 20 mg tablets, 2 tablets at 8 a.m., plus Ritalin instant release 10 mg tablets, 1 at 1:00 p.m. Follow up 1 year. Electronically Signed by Loi Caban III, MD 10/30/2010 14:44 Loi Caban III, MD - Loi Caban III, MD - [facility] Job ID: SM Doc ID: [id number] Ext Doc ID: [id number] cc: * Loi Caban III, MD - 10/29/2010 0939 EST This office note has been dictated. LOI CABAN III, MD documented in this encounter Plan of Treatment Upcoming Encounters Date Type Department Care Team (Late st Contact Info) Description 06/29/2024 14:15 EDT Office Visit [facility] [address] [place] [address] Jean Munoz MD [address] [place], [place] [...] daily. Take 1 tablet at noon Reorder 10/07/2010 10/29/2010 methylphenidate (RITALIN SR; METADATE ER; METHYLIN ER) 20 mg SR tablet Take 2 Tabs by mouth. in the morning at 8:00am Reorder 10/07/2010 11/07/2010 documented as of this encounter Care Teams Bilingual Operator Relationship Specialty Start Date End Date Jean Munoz MD [address] [place] [phone] PCP - General 12/31/08 Manny Rizzo MD [address] [place] [phone] 04/20/10 documented as of this encounter
--- OUTSIDE RECORDS SUMMARY | 2024-06-10 07:34 | XMS_ITS | Encounter Summary ---
Author Organization [facility] Address [address] [place] [address] Care Team Providers Care Java Software Name Role Phone Jean Munoz MD Primary Care Provider Manny Rizzo MD Unavailable Reason for Visit * Reason Comments Eye Problem NPV: Ret.Eval. after cyst in face w/antibiotics. Encounter Details Date Type Department Care Team (Late st Contact Info) Description 11/26/2010 12:45 EDT Office Visit [facility] Ophthalmology - [address] [phone] Adair Weiss MD [address] [place] [address], [address] [place] [phone] Social History Tobacco Use Types [...] as of this encounter Progress Notes * Adair Weiss MD - 12/03/2010 8227 EDT DIVISION OF OPHTHALMOLOGY [facility] PROGRESS/FOLLOWUP NOTE - 11/26/2010 Leonor Duque MD [facility] - Infectious Disease [address] [place] [address] Dear Maria T: This is a letter of update for Ms Viera. As I understand it, you sent her to me for evaluation for blurry vision. It sounds like she had a facial abscess recently, which she was treated for. She says she has been having chronic eye problems for quite some time. She has had blurred vision with burning eyes and aching eyes for about 3 months with some double vision that is horizontal for 3 months. The double vision has not gotten better or worse in that period of time. Dilated fundus exam with extended ophthalmoscopy was performed in both eyes and showed in the righteye a cup-to-disc ratio of 0.4 with vitreous syneresis. She has no PVD. Her retinal periphery is unremarkable. I see no evidence of any kind of lesions in her eye. In her left eye, she has a cup-to-disc ratio of 0.4 with vitreous syneresis. She has no PVD. Her retina is completely normal. I see no e vidence of lesions in her eyes. Impression: 1. Vitreous syneresis, both. 2. Moderate nuclear cataract changes, both. 3. Diplopia, both. 4. Blepharitis, both. Plan: From a retinal standpoint, she is completely normal. I see no evidence of lesions. I am assuming that is why you sent her to me. If you were sending her to me regarding the double vision and burning eyes, she should probably see someone else. I am going to set her up with Giovanni Kelly, who is a neuroophthalmologist, more for the double vision than anything else. Again, this has been there forquite some time so I do not think it is an emergent issue. He will see her within the next 2 to 3 weeks. Thanks again, Leonor. Sincerely, Electronically Signed by Adair Weiss MD 12/03/2010 16:27 Adair Weiss MD [facility] [address] [place] [address] - Adair Weiss MD - [facility] Job ID: Doc ID: [id number] [facility] Doc ID: [id number] cc: MD Leonor Li MD * Adair Weiss MD - 11/26/2010 1401 EDTAddended by: ADAIR WEISS on: 11/26/2010 Modules accepted: Level of Service * Vipul Dillard - 11/26/2010 1350 EDT Chief Complaint Patient presents with ??? Eye Problem NPV: Ret.Eval. after cyst in face w/antibiotics. HPI Location: Both eyes Pain: 5 Quality: Burning;Aching Severity: Mild Duration: Months Timing: Constant Lasts: Continuous Context: C/O VA Blurry, Diplopia, burning, aching suddenly x3 mos. constant 5/10 pain Modifying factors: floaters, 0 Flashes Associated Signs & Symptoms: Visual Fluctuations: Floaters Attestation: Base Ophthalmology Exam Visual Acuity Right Left Dist cc 20/25 20/25 Dist ph cc 20/20 NI Method: Snellen - Linear Tonometry Right Left Pressure 16 16 Method: Applanation Time: 13:31 Color Right Left Color 8/8 8/8 Method: Ishihara Dilation Both eyes: @ 13:31 Comments: Tropicamide 1%, phenlephrine 2.5% Pupils Pupils Dark Light React APD Right PERRL 4 3 Brisk None Left PERRL 4 3 Brisk None Visual Wolf Right Left Result Full Full Extraocular Movement Right Left Result Full, Ortho Full, Ortho Base Ophthalmology Exam Addl. Tests Amsler Right Left Amsler Normal lines are moving all over Main Ophthalmology Exam External Exam Right Left External Normal Normal Slit Lamp Exam Right Left Lids/Lashes Blepharitis Blepharitis Conjunctiva/Sclera White and quiet White and quiet Cornea SPK SPK Anterior Chamber Deep and quiet Deep and quiet Iris Round and reactive Round and reactive Lens 2+ Nuclear sclerosis, 1+ Cortical cataract 2+ Nuclear sclerosis, 1+ Cortical cataract Vitreous Vitreous syneresis Vitreous syneresis Fundus Exam Right Left Disc Normal Normal C/D Ratio 0.4 0.4 Macula Normal Normal Vessels Normal Normal Periphery Normal Normal Neuro/Psych Oriented x3: Yes Mood/Affect: Normal IMAGING: EO dictated IMPRESSION: 1. Diplopia (368.2) 2. Vitreous syneresis (379.24N) 3. Senile nuclear sclerosis (366.16) 4. Blepharitis, unspecified (373.00) PLAN: Pt with eyes that appear to be aligned to me Will refer to Giovanni Rodriguez for his eval VS no PVD Mild NSC both, NVS Bleph WC No follow up with me necessary I, Dr. Adair Weiss, have performed my own HPI and reviewed the tech's ROS. I have also reviewed thepatient's past medical, family, social and surgical history, as well as the patient's medications, allergies, and problem list. I am scribing for Adair Weiss MD while he is personally performing the service. JAZMÍN Dumont (Scribe) documented in this encounter Plan of Treatment Upcoming Encounters Date Type Department Care Team (Late st Contact Info) Description 06/29/2024 14:15 EDT Office Visit [facility] [address] [place], [place] [phone] Jean Munoz MD [address] [place] [phone] documented as of this encounter Visit Diagnoses Diagnosis Diplopia Vitreous syneresis Other vitreous opacities Senile nuclear sclerosis Blepharitis, unspecified Other vitreous opacities Screening for osteoporosis- Primary Special screening for [...] eye Left eye Dist cc 20/25 20/25 Dist ph cc 20/20 NI Tonometry (Applanation, 13:31) Right eye Left eye Pressure 16 16 Pupils Pupils Dark Light React APD Right eye PERRL 4 3 Brisk None Left eye PERRL 4 3 Brisk None Visual Wolf Right eye Left eye Full Full Extraocular Movement Right eye Left eye Full, Ortho Full, Ortho Neuro/Psych Oriented x3: Yes Mood/Affect: Normal Dilation Both eyes: @ 13:31 Tropicamide 1%, phenlephrine 2.5% Amsler Right eye Left eye Normal lines are moving all over Color Right eye Left eye Ishihara 8 8 External Exam Right eye Left eye External Normal Normal Slit Lamp Exam Right eye Left eye Lids/Lashes Blepharitis Blepharitis Conjunctiva/Sclera White and quiet White and sissy et Cornea SPK SPK Anterior Chamber Deep and quiet Deep and quiet Iris Round and reactive Round and hitesh ctive Lens 2+ Nuclear sclerosis , 1+ Cortical cataract 2+ Nuclear sclerosis, 1+ Cortical cataract Vitreous Vitreous syneresis Vitreous syne resis Fundus Exam Right eye Left eye Disc Normal Normal C/D Ratio 0.4 0.4 Macula Normal Normal Vessels Normal Normal Periphery Normal Normal Care Teams Java Software Relationship Specialty Start Date End Date Jean Munoz MD [address] [place] [phone] PCP - General 12/31/08 Manny Rizzo MD [address] [place] [address] 04/20/10 documented as of this encounter
--- OUTSIDE RECORDS SUMMARY | 2024-06-10 07:34 | XMS_ITS | Encounter Summary ---
Author Organization [facility] Address [address] [place] [address] Care Team Providers Care Lead Mason Tender Name Role Phone Jean Munoz MD Primary Care Provider Manny Rizzo MD Unavailable Reason for Visit * Reason Onset Date Comments Medications Refill 08/13/2010 Encounter Details Date Type Department Care Team (Late st Contact Info) Description 08/13/[address] [address] Caro Krueger, RN [address] [place] [address] Medications Refill Social History Tobacco Use Types [...] Dispensed Refills Start Date End Da te ropinirole (REQUIP) 2 mg tabletIndications:Restless leg syndrome Take 1 Tab by mouth at bedtime. 90 Each 0 08/13/2010 11/13/2010 documented in this encounter Miscellaneous Notes * Telephone Encounter - Caro Krueger RN - 08/13/2010 1512 EST Called patient and left message with instructions below concerning her requip. Asked that she call back to confirm she got instructions. #2.called pharmacy with new prescription, which was also escribed * Telephone Encounter - Jean Munoz MD - 08/13/2010 1502 EST escript done, please let them know (changed ropinarole from 1mg to 2 mg tab, take only 1 tab at bedtime) Please call patient to clarify change in medication, should only take 1 tab at bedtime * Telephone Encounter - Caro Krueger RN - 08/13/2010 1447 EST Fax from pharmacy states that insurance requires a 90 day supply of requip documented in this encounter Plan of Treatment Upcoming Encounters Date Type Department Care Team (Late st Contact Info) Description 06/29/2024 14:15 EDT Office Visit [facility] [address] [place] [address] Jean Munoz MD [address] [place] [phone] documented as of this encounter Visit Diagnoses Diagnosis Restless leg syndrome- Primary Restless legs syndrome (RLS) Screening [...] Start Date End Da te ropinirole (REQUIP) 1 mg tabletIndications:Restles s leg syndrome Take 2 Tabs by mouth at bedtime. Reorder 08/11/2010 08/13/2010 documented as of this encounter Care Teams Lead Mason Tender Relationship Specialty Start Date End Date Jean Munoz MD [address] [place] [phone] PCP - General 12/31/08 Manny Rizzo MD [address] [place] [address] 04/20/10 documented as of this encounter
--- OUTSIDE RECORDS SUMMARY | 2024-06-10 07:34 | XMS_ITS | Encounter Summary ---
Author Organization [facility] Address [address] [place] [address] Care Team Providers Care Shelf Drier Operator Name Role Phone Jean Munoz MD Primary Care Provider Manny Rizzo MD Unavailable Reason for Visit * Reason Onset Date Comments Medications Refill 12/01/2010 Encounter Details Date Type Department Care Team (Late st Contact Info) Description 12/01/2010 Refill [facility] Neurology - [address] [id number] Mik Caban MD [address] [place] [phone] Medications Refill Social History Tobacco Use [...] tablet at noon 30 Tab 0 12/01/2010 12/01/2010 methylphenidate (RITALIN SR; METADATE ER; METHYLIN ER) 20 mg SR tabletIndications:Narcole psy Take 2 Tabs by mouth. in the morning at 8:00am 60 Tab 0 12/01/2010 12/01/2010 documented in this encounter Miscellaneous Notes * Telephone Encounter - Elizabeth Oreilly - 12/01/2010 2196 EDT Requesting refill for Ritalin 20mg SR - Takes 2 at 8am and Ritalin 10mg - Takes 1 at 1pm. Mail script to home: [address] [facility], [address], [place] [address]. documented in this encounter Plan of Treatment Upcoming Encounters Date Type Department Care Team (Late st Contact Info) Description 06/29/2024 14:15 EDT Office Visit [facility] Family Medicine [facility] [address] [place] [address] Jean Munoz MD [address] [place] [phone] documented as of this encounter Visit Diagnoses [...] mouth. in the morning at 8:00am Reorder 11/07/2010 12/01/2010 methylphenidate (RITALIN) 10 mg tabletIndications:Narcol epsy Take 1 Tab by mouth. Take 1 tablet at noon Reorder 10/29/2010 12/01/2010 documented as of this encounter Care Teams Shelf Drier Operator Relationship Specialty Start Date End Date Jean Munoz MD [address] [place] [phone] PCP - General 12/31/08 [place] [address] [place] [phone] 04/20/10 documented as of this encounter
--- OUTSIDE RECORDS SUMMARY | 2024-06-10 07:34 | XMS_ITS | Encounter Summary ---
Author Organization [facility] Address [address] [place] [address] Care Team Providers Care Varying Exceptionalities Teacher Name Role Phone Jean Munoz MD Primary Care Provider Manny Rizzo MD Unavailable Reason for Visit * Reason Comments Cyst Cyst on left cheek Encounter Details Date Type Department Care Team (Late st Contact Info) Description 10/03/2010 11:20 EST Office Visit [facility] ENT- Main [place] [address] [place], [place] [phone] Shell Vallejo MD [address] [facility], [address] [place] [address] Abscess of face (Primary Dx) Social History Tobacco Use Types [...] Progress Notes * Shell Vallejo MD - 10/14/2010 1227 EST DIVISION OF OTOLARYNGOLOGY PROGRESS/FOLLOWUP NOTE - 10/03/2010 SUBJECTIVE: Ms Viera is a 49-year-old woman who is here today for evaluation of a facial cellulitis. She was seen a week ago when she was in the hospital by Dr Staley. At that point, she was noted to have swelling and erythema of her left cheek. She notes that prior to this time, she had had a bump in the area which had been present for about 2 years that had never been infected previously. She was seen originally with some drainage at the area with progression of this. She was initially treated with Keflex without improvement. In subsequent visits, she did note that she has been exposed toMRSA. She was treated with IV vancomycin in the hospital and then sent home on Bactrim and Keflex. She has continued to be followed by infectious disease. They saw her earlier this week and are contin uing her Bactrim and Keflex for another 10 days. PAST MEDICAL HISTORY: Other medical problems include asthma, bowel disease, GERD, migraines and allergies. PAST SURGERIES: Include hysterectomy, spine surgery, shoulder surgery, acid reflux surgery. FAMILY HISTORY: Notable for allergic rhinitis, cancer and asthma. SOCIAL HISTORY: She smokes. She is trying to quit. She is down to half a pack a day from 2 packs a day. She does not drink alcohol, REVIEW OF SYSTEMS: Is notable for fever, fatigue, headaches, blurred vision, double vision, sensitivity to light, shortness of breath with walking, wheezing, muscle pain and weakness of her arms and legs. ALLERGIES: She is allergic to TORADOL with hives and swelling and MOTRIN she gets itching. OBJECTIVE: Generally, she is in no distress. She is well groomed. Her face reveals symmetric movement. She has some very mild edema lateral to the nasolabial fold on the left side. To palpation thereis some very minor edema in this area. Her voice is of normal quality. Her nose externally is unremarkable. Internally, she has a good airway. Her mouth and oropharynx is within normal limits withoutlesions. Her neck reveals no masses or adenopathy. Salivary glands are normal to palpation. Her ears including the canals, TMs and auricles are within normal limits. ASSESSMENT: Recent left facial cellulitis, which sounds like this could have started with an infected sebaceous cyst and complicated by the presence of MRSA. She is recovering well at this point. PLAN: I have recommended that she return for followup here in a month and a half or so to reevaluate to see if any persistent sebaceous cyst that needs to be treated. She will return sooner if she has problems before then. She is going to continue to be followed by infectious disease. Electronically Signed by Shell Vallejo MD 10/14/2010 12:27 Shell Vallejo MD - Shell Vallejo MD - [facility] Job ID: SM Doc ID: [id number] Ext Doc ID: [id number] cc: Leonor Duque MD * Shell Vallejo MD - 10/03/2010 1211 EST This office note has been dictated. documented in this encounter Plan of Treatment Upcoming Encounters Date Type Department Care Team (Late st Contact Info) Description 06/29/2024 14:15 EDT Office Visit [facility] [address] [place], [place] [phone] Jean Munoz MD [address] [place] [phone] documented as of this encounter [...] colon documented in this encounter Care Teams Varying Exceptionalities Teacher Relationship Specialty Start Date End Date Jean Munoz MD [address] [place] [phone] PCP - General 12/31/08 Manny Rizzo MD [address] [place] [phone] 04/20/10 documented as of this encounter
--- OUTSIDE RECORDS SUMMARY | 2024-06-10 07:34 | XMS_ITS | Encounter Summary ---
Author Organization [facility] Address [address] [place] [address] Care Team Providers Care Janitorial Account Manager Name Role Phone Jean Munoz MD Primary Care Provider Manny Rizzo MD Unavailable Encounter Details Date Type Department Care Team (Late st Contact Info) Description 10/20/2010 Orders Only [facility] Infectious Disease - [facility] [address] [place], [place] [phone] Aline Rocha FNP [facility] [address] [place], [place] [address] Abscess of face (Primary Dx) Social History [...] as needed for Pain. 27 Tab 0 10/20/2010 10/29/2010 documented in this encounter Plan of Treatment Upcoming Encounters Date Type Department Care Team (Late st Contact Info) Description 06/29/2024 14:15 EDT [facility] [address] [place] [address] Jean Munoz MD [address] [place] [phone] documented as of this encounter [...] 6 hours as needed for Pain. Reorder 10/06/2010 10/20/2010 documented as of this encounter Care Teams Janitorial Account Manager Relationship Specialty Start Date End Date Jean Munoz MD [address] [place] [phone] PCP - General 12/31/08 Manny Rizzo MD [address] [place] [phone] 04/20/10 documented as of this encounter
--- OUTSIDE RECORDS SUMMARY | 2024-06-10 07:34 | XMS_ITS | Encounter Summary ---
Author Organization [facility] Address [address] [place] [address] Care Team Providers Care Freight Car Cleaner Name Role Phone Jean Munoz MD Primary Care Provider Manny Rizzo MD Unavailable Reason for Visit * Reason Onset Date Comments Medications Refill 09/09/2010 Encounter Details Date Type Department Care Team (Late st Contact Info) Description 09/09/2010 Refill [facility] Sleep Program - [address] [phone] Corrina Ac, RN [address] [place] [address] Medications Refill Social History Tobacco Use Types [...] at noon 30 Tab 0 09/09/2010 10/07/2010 methylphenidate (RITALIN SR; METADATE ER; METHYLIN ER) 20 mg SR tablet Take 2 Tabs by mouth. in the morning at 8:00am 60 Tab 0 09/09/2010 10/07/2010 documented in this encounter Miscellaneous Notes * Telephone Encounter - Corrina Ac RN - 09/09/2010 1131 EST Mailed refills to pt per her request. documented in this encounter Plan of Treatment Upcoming Encounters Date Type Department Care Team (Late st Contact Info) Description 06/29/2024 14:15 EDT Office Visit [facility] [address] [place], [place] [phone] Jean Munoz MD [address] [place] [phone] documented as of this encounter Visit Diagnoses Not on filedocumented in this encounter Discontinued Medications Medication Sig Discontinue Reason Start Date End Da te methylphenidate (RITALIN SR; METADATE ER; METHYLIN ER) 20 mg SR tablet Take 2 Tabs by mouth. Take 2 tablets in the morning at 8:00am Reorder 08/11/2010 09/09/2010 methylphenidate (RITALIN) 10 mg tablet Take 1 Tab by mouth daily. Take 1 tablet at noon Reorder 08/11/2010 09/09/2010 documented as of this encounter Care Teams Freight Car Cleaner Relationship Specialty Start Date End Date Jean Munoz MD [address] [place] [phone] PCP - General 12/31/08 Manny Rizzo MD [facility] [place] [phone] 04/20/10 documented as of this encounter
--- OUTSIDE RECORDS SUMMARY | 2024-06-10 07:34 | XMS_ITS | Encounter Summary ---
Author Organization [facility] Address [address] [place] [address] Care Team Providers Care Wallcovering Texturer Name Role Phone Jean Munoz MD Primary Care Provider Manny Rizzo MD Unavailable Encounter Details Date Type Department Care Team (Late st Contact Info) Description 10/13/2010 8:34 EST - 10/13/2010 23:59 EST Hospital Encounter [facility] [address] [place] [address] Leonor Duque MD [address] [facility], [address] [place] [phone] Discharge Disposition: Home or Self Care Social [...] times daily as needed for Constipation. 09/24/2010 doxycycline (VIBRA-TABS) 100 mg tablet Take 1 Tab by mouth 2 times daily for 10 days. 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 30 Tab 1 10/02/2010 11/13/2010 fluticasone-salmeterol (ADVAIR DISKUS) 500-50 mcg/Dose diskus inhaler Inhale 1 Puff as directed 2 times daily. 1 Each 5 05/08/2010 11/13/2010 hydrocodone-acetaminoph en (LORTAB;VICODIN) 5-500 mg per tablet Take 1 Tab by mouth every 6 hours as needed for Pain. 30 Tab 0 10/06/2010 10/20/2010 levalbuterol (XOPENEX HFA) 45 mcg/Actuation inhaler Inhale 1-2 Puffs as directed every 4 hours as needed for Wheezing. 1 Inhaler 5 05/08/2010 11/13/2010 methylphenidate (RITALIN SR; METADATE ER; METHYLIN ER) 20 mg SR tablet Take 2 Tabs by mouth. in the morning at 8:00am 60 Tab 0 10/07/2010 11/07/2010 methylphenidate (RITALIN) 10 mg tablet Take 1 Tab by mouth daily. Take 1 tablet at noon 30 Tab 0 10/07/2010 10/29/2010 mometasone (NASONEX) 50 mcg/Actuation nasal spray 2 Sprays by Nasal route daily. 3 Inhaler 3 12/12/2009 11/13/2010 predniSONE (DELTASONE) 20 mg tablet Take 2 Tabs by mouth daily for 5 days. 10 Tab 1 05/08/2010 10/29/2010 predniSONE (DELTASONE) 5 mg tablet Take 20 mg/kg by mouth as needed. 09/17/2010 11/13/2010 pregabalin (LYRICA) 150 mg capsuleIndications:Plant Hr Manager majo back pain,Cervicalgia Take 1 Cap by [...] mouth daily. 45 Tab 5 07/02/2010 11/13/2010 sumatriptan (IMITREX) 50 mg tabletIndications:Migra ine Take [...] Code Departure Means Destination Home or Self Half[place] documented in this encounter Plan of Treatment Upcoming Encounters Date Type Department Care Team (Late st Contact Info) Description 06/29/2024 14:15 EDT Office Visit [facility] Medicine [facility] [address] [place] [address] Jean Munoz MD [address] [place] [phone] documented as of this encounter Visit Diagnoses Not on filedocumented in this encounter Care Teams Wallcovering Texturer Relationship Specialty Start Date End Date Jean Munoz MD [address] [place] [phone] PCP - General 12/31/08 Manny Rizzo MD [address] [place] [phone] 04/20/10 documented as of this encounter
--- OUTSIDE RECORDS SUMMARY | 2024-06-10 07:34 | XMS_ITS | Encounter Summary ---
Author Organization 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 Started on oral ABs on Wednesday Encounter Details Date Type Department Care Team (Late st Contact Info) Description 09/19/2010 14:25 EST - 09/25/2010 11:23 [facility] Hospital Encounter [facility] Neurosurgery Unit [address], [place] [id number] Jos Raphael PA [address] [place] [phone] Jorge Philippe MD [address] [facility] [address] [place] [phone] Efren Escalante MD [address] [facility], Level [address] [place] [phone] Lumbosacral spondylosis without myelopathy; Abscess of face; Chronic back pain; Cervicalgia; GERD (gastroesophageal reflux disease); Restless leg syndrome; Migraine; Tobacco abuse; Insomnia Discharge Disposition: Home or Self Care Social [...] Sign Reading Time Taken Comments Blood Pressure 101/58 09/25/2010 0733 EST Pulse 70 09/25/2010 0733 EST Temperature 35.2 ??C (95.4 ??F) 09/25/2010 0733 EST Respiratory Rate 18 09/25/2010 0733 EST Oxygen Saturation 98% 09/25/2010 0733 EST Inhaled Oxygen Concentration - - Weight 88.9 kg (195 lb 15.8 oz) 09/20/2010 2006 EST Height - - Body Mass Index 33.64 07/14/2010 1024 EDT documented in this encounter Functional Status Cognitive Status Response Date of Assessm ent Because of a physical, menta l, or emotional condition, do you have serious difficulty concentrating, remembering, or making decisions? (5 years old or older) Yes 09/19/2010 documented as of this encounter Discharge Summaries * Grace Rowan MD - 09/22/2010 0821 EST Discharge Summary Chief Complaint/Reason for Admission: Left cheek pain and erythema Principal/Final Diagnosis: Left cheek cellulitis Principal Procedure: Needle aspiration Date: 09/19/2010 Secondary Procedures: Needle aspiration 09/20/09 Prognosis: good Condition at Discharge: Good Relevant Studies at Discharge: CT: Findings: There is a 10 x 7 x 8 mm peripherally enhancing hypodensity in the subcutaneous soft tissues overlying the left cheek. The is a small region of infiltration of the subcutaneous fat lateral and caudal to this lesion. There is a 1.5 x 2 cm perforation of the nasal septum anteriorly. There is mild deviation of the posterior aspect septum to the right the nasal passageways are clear. The re is a minimal amount of mucosal thickening within the left sphenoid air cell. No fluid levels areidentified. The orbital contents are normal. No acute fracture the facial bones is identified. The temporomandibular joints have normal alignment. The visualized portions of the brain parenchyma are normal. The visualized vascular structures enhance normally. Conclusion: Left cheek cellulitis with a subcentimeter peripherally enhancing collection most consistent with a small abscess Assessment at Discharge: Vital signs: Patient Vitals in the past 12 hrs: BP Temp Pulse Resp SpO2 09/24/10 0802 98/55 mmHg 35.3 ??C (95.6 ??F) 79 16 96 % 09/24/10 0411 105/56 mmHg 35.7 ??C (96.3 ??F) 69 16 95 % 09/24/10 0014 98/60 mmHg 35.2 ??C (95.4 ??F) 75 18 95 % Hospital Course: This is a 49 yo F who presented with a 5 day history of left cheek pain, erythema,and induration which started as a 'pimple.' She was able to express a small amount of pus herself but saw her PCP on 09/17/10 for increasing pain and erythema who performed a small I&D in the office and prescribed a course of Kelfex. She failed outpatient treatment and came to the ED 2 days laterwhen her symptoms worsened. Her daughter reportedly had a history of MRSA infection. On ultrasound of her left cheek there appeared to be a small microabscess formation. A needle aspiration was attempted in the ED without significant return of fluid or pus. She was admitted with IV clindamycin. Her symptoms did not improve over the next 24 hours and she was switched to IV vancomycin. A formal ID consult was called on 09/22/10 who recommended another day of IV vanco followed by high dose bactrim DS and keflex PO for 10 days. Her left cheek improved significantly with decreased erythema and renetta small area of induration at the inferior wound edge. She is follow up with Dr. Staley in 1 week and ID on Sep 26. She was discharged home on 09/25/2010 in stable condition. Last Lab Results at Discharge: CBC: Lab Results Component Value Date WBC 6.71 09/24/2010 RBC 3.74* 09/24/2010 HGB 12.7 09/24/2010 HCT 36.4 09/24/2010 MCV 97 09/24/2010 MCH 34.1* 09/24/2010 MCHC 35.1 09/24/2010 PLT 252 09/24/2010 DIFFTYPE Automated 09/24/2010 SEDRATE 4 06/28/2008 Discharge Summary Completed: Grace Rowan MD 09/25/2010 Medications prior to admission that will be resumed at discharge: Medication Sig Dispense Refill ??? predniSONE (DELTASONE) 5 mg tablet Take 0.5 mg/kg by mouth as needed. ??? methylphenidate (RITALIN SR; METADATE ER; METHYLIN ER) 20 mg SR tablet Take 2 Tabs by mouth. inthe morning at 8:00am 60 Tab 0 ??? methylphenidate (RITALIN) 10 mg tablet Take 1 Tab by mouth daily. Take 1 tablet at noon 30 Tab 0 ??? ropinirole (REQUIP) 2 mg tablet Take 1 Tab by mouth at bedtime. 90 Each 0 ??? sumatriptan (IMITREX) 50 mg tablet Take 1 Tab by mouth once as needed for Migraine for 1 dose. Gets 9 tabs a month and uses them all 9 Tab 2 ??? promethazine (PHENERGAN) 25 mg tablet Take 1 Tab by mouth every 6 hours as needed for Nausea. 45 Each 0 ??? zolpidem (AMBIEN) 10 mg tablet Take 1 Tab by mouth at bedtime as needed for Sleep. 30 Each 2 ??? varenicline (CHANTIX) 1 mg tablet Take 1 Tab by mouth 2 times daily. 60 Each 2 ??? baclofen (LIORESAL) 10 mg tablet Take 0.5 Tabs by mouth 2 times daily as needed (spasm). 30 Tab1 ??? sertraline (ZOLOFT) 100 mg tablet Take [...] by Nasal route daily. 3 Inhaler 3 New medications prescribed at discharge: Medication Sig Dispense Refill ??? sulfamethoxazole-trimethoprim (BACTRIM DS) 800-160 mg per tablet Take 1 Tab by mouth every 12 hours for 10 days. 20 Tab 0 ??? cephALEXin (KEFLEX) 500 mg capsule Take 1 Cap by mouth 4 times daily for 10 days. 40 Cap 0 ??? docusate sodium (COLACE) 100 mg capsule Take 1 Cap by mouth 2 times daily as needed for Constipation. ??? oxycodone-acetaminophen (PERCOCET) 5-325 mg per tablet Take 1-2 Tabs by mouth every 4 hours as needed for Pain. 30 Tab 0 documented in this encounter Discharge Instructions * Discharge Instructions* Grace Rowan MD - 09/24/2010 11:15 EST Diet: Regular Activity: No restrictions. Driving: No driving while taking narcotic pain medication Skin/Wound Care: Do not apply any powders or lotions to the area of the wound. Do not rub the wound area. Keep the wound area clean and dry. No dressing required. Bathing: No restrictions Pending Results: Not applicable Symptoms to Call Your Doctor About: Fever greater than 100.4 or chills Inability to swallow or increasing difficulty swallowing Increased or new pain Pain unrelieved by medication Recurrance of symptoms that brought you to the hospital Signs of infection such as pain, redness, swelling or drainage at procedure or wound site Appointments: See Dr. Dodie Staley from Otolaryngology in 1 week. Please call [phone] for an appointment. You have an Infectious Disease appointment on WednesdaySeptember 30 at 4 pm with Jessica. Clinic phone number is [phone]. Follow-up Services Contacted at Discharge: Attending physician Health Risk and Disease Information: Nutrition Counseling [facility] provides outpatient nutrition counseling. To schedule an appointment, call [phone]. Patients with diabetes are seen at the Endocrinology Clinic at these three practice sites: [address] [place] [id number] [place], [place] [address] documented in this encounter Medications at Time [...] daily for 10 days. 40 Cap 0 09/24/2010 09/30/2010 fluticasone-salmeterol (ADVAIR DISKUS) 500-50 mcg/Dose diskus inhaler Inhale 1 Puff as directed 2 times daily. 1 Each 5 05/08/2010 11/13/2010 levalbuterol (XOPENEX HFA) 45 mcg/Actuation inhaler Inhale [...] route daily. 3 Inhaler 3 12/12/2009 11/13/2010 oxycodone-acetaminophen (PERCOCET) 5-325 mg per tablet Take 1-2 Tabs by mouth every 4 hours as needed for Pain. 30 Tab 0 09/24/2010 09/30/2010 predniSONE (DELTASONE) 20 mg tablet Take 2 Tabs by mouth daily for 5 days. 10 Tab 1 05/08/2010 10/29/2010 predniSONE (DELTASONE) 5 mg tablet Take 20 mg/kg by mouth as needed. 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 270 Cap 2 04/21/2010 10/30/2010 promethazine (PHENERGAN) 25 mg tabletIndications:GERD (gastroesophageal reflux disease) Take 1 Tab by mouth every 6 hours as needed for Nausea. 45 Each 0 08/11/2010 09/30/2010 ropinirole (REQUIP) 2 mg tabletIndications:Restl ess leg syndrome Take 1 Tab by mouth at bedtime. 90 Each 0 08/13/2010 11/13/2010 sertraline (ZOLOFT) 100 mg tablet Take 1.5 Tabs by mouth daily. 45 Tab 5 07/02/2010 11/13/2010 sulfamethoxazole-trimet hoprim (BACTRIM DS) 800-160 mg per tablet Take 1 Tab by mouth every 12 hours for 10 days. 20 Tab 0 09/24/2010 09/30/2010 sumatriptan (IMITREX) 50 mg tabletIndications:Migra ine Take [...] 08/11/2010 11/13/2010 documented as of this encounter Ordered Prescriptions Prescription Sig Dispensed Refills Start Date End Da te oxycodone-acetaminophen (PERCOCET) 5-325 mg per tablet Take 1-2 Tabs by mouth every 4 hours as needed for Pain. 30 Tab 0 09/24/2010 09/30/2010 cephALEXin (KEFLEX) 500 mg capsule Take 1 Cap by mouth 4 times daily for 10 days. 40 Cap 0 09/24/2010 09/30/2010 sulfamethoxazole-trimethop rim (BACTRIM DS) 800-160 mg per tablet Take 1 Tab by mouth every 12 hours for 10 days. 20 Tab 0 09/24/2010 09/30/2010 documented in this encounter Discharge Disposition Disposition Code Departure Means Destination Home or Self Care documented in this encounter Progress Notes * Efren Guerrier - 09/26/2010 0720 EST CM DC NOTE; 09/25/10 DC w/o CM&SW Dept. services ordered. // David Guerrier RN #[id number] * Tim Garibay RN - 09/25/2010 1105 EST Pt being DC to home today, IV DC no redness or swelling, Discharge instructions reviewed no questions/concerns at this time. Pt will call for follow-up appointments. * Yanelis Moise MD - 09/24/2010 1728 EST [facility] Afternoon Rounding Progress Note 09/24/2010 This patient was seen on afternoon rounds with Dr. Richardson. The patient was stable and the changes that were made are reflected below. BP 110/58 Pulse 85 Temp 35.8 ??C (96.4 ??F) Resp 18 Wt 88.9 kg (195 lb 15.8 oz) SpO2 95% Exam: stable A/P: Continue with current management See Am progress note for full details Changes made on rounds today include: 1) none 2) D/C home tomorrow YANELIS MOISE MD 09/24/2010 17:29 * Grace Rowan MD - 09/24/2010 0536 EST Ear, Nose and Throat Surgery DAILY PROGRESS NOTE Hospital LOS: 5 days 24 hour events: Facial cellulitis improved. Diflucan given for yeast infection. S: Patient states that yeast infection is dragging me down. O: Vitals: Blood pressure 105/56, pulse 69, temperature 35.7 ??C (96.3 ??F), resp. rate 16, weight 88.9 kg (195 lb 15.8 oz), SpO2 95.00%. I+O last shift: I+O last 3 shifts: In: 740 (740 P.O.) Out: 1810 (1810 Urine) Current Diet: General Current Scheduled Meds:@RRSMED@ Labs: Lab Results Component Value Date WBC 6.30 09/22/2010 WBC 13.64* 01/04/2009 HGB 12.3 09/22/2010 HGB 12.3 01/04/2009 HCT 35.0 09/22/2010 HCT 35.4 01/04/2009 PLT 274 09/22/2010 PLT 283 01/04/2009 NA 140 09/23/2010 NA 136 01/04/2009 K 4.3 09/23/2010 K 3.9 01/04/2009 CL 103 09/23/2010 CL 98 01/04/2009 CO2 27 09/23/2010 CO2 31 01/04/2009 BUN 10 09/23/2010 BUN 9* 01/04/2009 CREATININE 0.70 09/23/2010 CREATININE 0.70 01/04/2009 GLUCOSEFINGE 126* 11/28/2009 Physical Exam: General appearance: AAOx3, NAD HEENT: Left cheek - lower cheek border with stable induration, erythema much improved. Lungs: CTA B Heart: RRR, S1/S2 normal Abdomen: +BS, soft A: HD#6 (09/19) left facial cellulitis unresponsive to outpatient therapy, improving on Vancomycin. Patient Active Problem List Diagnoses Code ??? [...] spondylosis 721.0D ??? Abscess of face 682.0A P: -continue vanco, transition to PO antibiotics per ID -clotrimazole vaginal cream -regular diet -ambulate -dispo planning Grace Rowan MD 09/24/2010 Otolaryngology * Leonor Duque MD - 09/23/2010 0928 EST Infectious Disease Consultation Follow Up Note Admit Date: 09/19/2010 Hospital Day: LOS: 4 days Date of Service: 09/23/2010 Followup For: Abscess, facial cellulitis 24 Hour Events: Continued IV vancomycin Subjective: Continues to have significant pain and tenderness left cheek. No fevers or chills, but ongoing nausea. Has been able to eat, but appetite variable. HAs seem to be improving. No pain with EOM, mild double vision with downward gaze, unchanged. Had episodes of feeling well yesterday, but this am, feels ill again. Denies diarrhea. Constipated, wonders if this is contributing to nausea. Noadverse effects noted with IV vancomycin. Anti-infectives & Other Pertinent Medications: vancomycin 1250 mg IV Q 12 hours, day 3. Vital Signs: BP 102/58 Pulse 83 Temp 35.2 ??C (95.4 ??F) Resp 20 Wt 88.9 kg (195 lb 15.8 oz) SpO2 95% Exam: Alert, oriented, conversant. NAD. Fullness and edema left nasolabial fold. Erythema is fading. Remains warm, very tender, indurated with rounded mass at inferior aspect of lesion. EOMI. Data Review: Laboratory data reviewed. Pertinent positives include: Labs: Cr .6; Vanco trough 12.6. Microbiology: None Other: Assessment: 1. Facial abscess. Continues to have significant induration, particularly at inferior aspect of lesion. Exam without significant change and remains very tender. Neuro exam unchanged. Has known microabscesses via prior imaging with unsuccessful attempts at drainage. Size of collection may preclude effective treatment with antibiotics. Would favor repeat u/s to ensure no drainable collection exists(as these can mature). Would favor drainage if possible, as patient will have much more rapid response and will be at decrease risk for relapse. Would continue with IV therapy for now, especially as not a significant change from yesterday. Will re-evaluate daily. Plan will be for transition to PO Bactrim/Keflex to complete 14 days of treatment once she's had significant clinical improvement. 2. Cellulitis. Improving. Related to # 1. 3. Nausea. Could be related to infection vs constipation. Am concerned that ongoing nausea could limit PO intake of antibiotics. Would favor treating constipation to exclude as contributing. Would continue IV vancomycin while inpatient with plan to transition to PO upon d/c, when nausea improves. Recommendations: 1. Continue IV vanco at present dosing. 2. U/S. 3. Bowel regimen. 4. Will re-eval in am. Discussed and seen with Dr. Duque. Discussed with primary care team PATY FINE MD 09/23/2010 9:28 ID attending addendum I have seen and examined the patient with Dr. Fine, the ID fellow, and agree with her assessment and plan of care as documented Leonor Duque MD #[id number] * Grace Rowan MD - 09/23/2010 2740 EST Ear, Nose and Throat Surgery DAILY PROGRESS NOTE Hospital LOS: 4 days 24 hour events: Formal ID consult yesterday, recommended continuing vanco. S: Patient states her left lower cheek feels sore. O: Vitals: Blood pressure 102/58, pulse 83, temperature 35.2 ??C (95.4 ??F), resp. rate 20, weight 88.9 kg (195 lb 15.8 oz), SpO2 95.00%. I+O last shift:In: - Out: 250 (250 Urine) I+O last 3 shifts: In: 705 (400 P.O.) Out: 765 (765 Urine) Current Diet: General Current Scheduled Meds:[facility] Labs: Lab Results Component Value Date WBC 6.30 09/22/2010 WBC 13.64* 01/04/2009 HGB 12.3 09/22/2010 HGB 12.3 01/04/2009 HCT 35.0 09/22/2010 HCT 35.4 01/04/2009 PLT 274 09/22/2010 PLT 283 01/04/2009 NA 137 09/22/2010 NA 136 01/04/2009 K 4.4 09/22/2010 K 3.9 01/04/2009 CL 104 09/22/2010 CL 98 01/04/2009 CO2 28 09/22/2010 CO2 31 01/04/2009 BUN 10 09/22/2010 BUN 9* 01/04/2009 CREATININE 0.66* 09/22/2010 CREATININE 0.70 01/04/2009 GLUCOSEFINGE 126* 11/28/2009 Physical Exam: General appearance: AAOx3, NAD HEENT: Left cheek with much decreased erythema and induration-much softer this am, still no fluctuence, mild crusting over skin now Lungs: CTA B Heart: RRR, S1/S2 normal Abdomen: +BS, soft A: HD#5 (09/19) left facial cellulitis unresponsive to outpatient therapy, improving on Vancomycin. Patient Active Problem List Diagnoses Code ??? [...] spondylosis 721.0D ??? Abscess of face 682.0A P: -continue vanco -regular diet -ambulate -dispo planning Grace Rowan MD 09/23/2010 Otolaryngology * Efren Guerrier - 09/22/2010 1147 EST Case Management Assessment Working Diagnosis/Presenting Problem: Facial cellulitis & abscess Living Arrangements: Lives alone in mobile home w/ 3 steps to enter in [facility]. Functional Status (psychosocial and physical): Independent w/ ADL's; she can drive but doesn't havea car at present; she is not employed and is applying for disability for back/neck pain & narcolepsy. Social Supports: Friends and neighbors are supportive Existing Community Resources: None Advanced Directives/DPOA: unk Cultural/Spiritual Needs: unk Insurance/[place] Needs[place]; uses [facility] in [place] Transportation Needs: Uncertain at this time Patient Goals: Return home when appropriate Assessment and Discharge Care Plan: 09/22/10 I met w/ Liset in her room; aox3, sitting in chair. I explained role of CM. She didn't identify any discharge planning needs during this visit. I did briefly explain that often, if needed, we can arrange home IV abx's. I explained that would depend on whather doctor's felt was necessary and appropriate. I will follow as needed for discharge planning needs. // David Guerrier RN #[id number] * Grace Rowan MD - 09/22/2010 0612 EST Ear, Nose and Throat Surgery DAILY PROGRESS NOTE Hospital LOS: 3 days 24 hour events: No acute events, afebrile S: Patient states her night was alright, the soreness is still there O: Vitals: Blood pressure 105/63, pulse 65, temperature 35.5 ??C (95.9 ??F), resp. rate 16, weight 88.9 kg (195 lb 15.8 oz), SpO2 97.00%. I+O last shift:In: - Out: 150 (150 Urine) I+O last 3 shifts: In: 650 (650 P.O.) Out: 1650 (1650 Urine) Current Diet: General [facility] Labs: Lab Results Component Value Date WBC 8.66 09/21/2010 WBC 13.64* 01/04/2009 HGB 13.4 09/21/2010 HGB 12.3 01/04/2009 HCT 38.1 09/21/2010 HCT 35.4 01/04/2009 PLT 287 09/21/2010 PLT 283 01/04/2009 NA 138 09/21/2010 NA 136 01/04/2009 K 4.3 09/21/2010 K 3.9 01/04/2009 CL 105 09/21/2010 CL 98 01/04/2009 CO2 28 09/21/2010 CO2 31 01/04/2009 BUN 11 09/21/2010 BUN 9* 01/04/2009 CREATININE 0.62* 09/21/2010 CREATININE 0.70 01/04/2009 GLUCOSEFINGE 126* 11/28/2009 Physical Exam: General appearance: AAOx3, NAD HEENT: Left cheek with stable erythema and induration-slightly softer this am, still no fluctuence,mild crusting over skin now Lungs: CTA B Heart: RRR, S1/S2 normal Abdomen: +BS, soft A: HD#4 (09/19) left facial cellulitis unresponsive to outpatient therapy, needle aspiration attempted twice without significant return of fluid. Patient Active Problem List Diagnoses Code ??? [...] spondylosis 721.0D ??? Abscess of face 682.0A P: -continue vanco -formal ID consult today -regular diet -ambulate Grace Rowan MD 09/22/2010 Otolaryngology * Denzel Min MD - 09/21/2010806 EST ENT PN S: feels about the same O: BP 100/58 Pulse 81 Temp 36.4 ??C (97.5 ??F) Resp 16 Wt 88.9 kg (195 lb 15.8 oz) SpO2 96% NAD Left cheek with stable erythema and induration, still no fluctuence, mild crusting over skin now WBC/RBC/HGB/HCT/PLT/ANC8.66/3.90/13.4/38.1/287/5.11 (09/21 0639) Culture: no polys, no bacteria, final pending; MRSA nasal swab negative A/P: 49 yo female HD #3 admitted with facial cellulitis unresponsive to outpatient therapy. A needle aspiration was reattempted yesterday and then a CT performed which showed primarily phlegmon. ID was informally consulted and recommended changing abx to vanco which began last night. Will continue IV abx. DENZEL MIN MD * Denzel Min MD - 09/20/[address] scan reviewed and d/w director of residential services. It shows primarily phlegmon with very small area of rim-enhancement superficially, likely in area of previous I&D per PCP. Pt d/w Dr. Martin who recommended changing abx to Vanco for hospitalization. This plan was d/w the pt as well. DENZEL MIN MD * Denzel Min MD - 09/20/2010 1637 EST ENT PN S: not feeling great, no better O: BP 107/61 Pulse 73 Temp 36 ??C (96.8 ??F) Resp 16 SpO2 97% NAD Left cheek induration still present with overlying erythema Procedure: Pt verbally consented. Skin cleaned with alcohol. 1cc 1% lidocaine injected with 25 gauge needle. After allowing adequate time for anesthesia, 18 gauge needle inserted in area of most prominent induration and aspiration attempted throughout this area without collection of any pus. Pt tolerated without complication. Dr. Staley performed the procedure. Culture: no polys, no bacteria, final pending A: 49 yo female with left cheek cellulitis and induration suggesting abscess. However, we have beenunable to drain any pus on two separate occasions. P: - CT scan with contrast to evaluate further - ID consult after scan Pt seen and examined with Dr. Staley. DENZEL MIN MD * Denzel Min MD - 09/20/2010 0932 EST ENT PN S: no significant change but no worse, only had 4 cigarettes yesterday O: BP 119/69 Pulse 63 Temp 36.1 ??C (97 ??F) Resp 16 SpO2 98% NAD Left cheek with stable erythema and induration, still no fluctuence extending to nasolabial fold WBC/RBC/HGB/HCT/PLT/ANC6.19/3.81/12.9/36.9/280/2.82 (09/20 06) Culture: no polys, no bacteria, final pending A/P: 49 yo female HD #2 admitted with facial cellulitis unresponsive to outpatient therapy with stable clinical exam today. Continue IV Clindamycin. Pt encouraged to use this admission to stop smoking since she has already cut back significantly. DENZEL MIN MD documented in this encounter H&P Notes * Grace Rowan MD - 09/19/2010 1325 EST [facility] H&P Called by Jos Raphael PA for evaluation of questionable left cheek abscess CC: This is a 49 yo F who presents with a left cheek pain, erythema, and induration. It started as a 'pimple' on her left cheek located just under the left medial zygoma, which she squeezed as was able to express pus. The cheek then became warm, erythematous, with increasing pain and induration over the next few days. She was seen by her PCP on Wednesday who performed an I&D in the office with a small amount of pus return and sent her home with Keflex. Her symptoms worsened despite the antibiotics. She denies any dysphagia, odynophagia, otalgia, otorrhea, or nasal congestion. She denies PMH of DM or steroid use. HPI: Liset Viera is a 49 y.o. Female Past Medical History Diagnosis Date ??? UTI [...] ??? Right knee pain 04/19/09 Ortho consult Gayr Mabry, MRI ? Mensicus tear, recommend PT ??? Unspecified neuralgia, neuritis, and radiculitis 11/06/09 ??? Brachial neuritis or radiculitis NOS 11/06/09 ??? Laceration 12/26/09 ??? Dizziness 12/26/09 Past Surgical History Procedure Date ??? Salpingectomy 1982 ectopic ??? Hysterectomy, vaginal menorrhagia ??? Shoulder arthroscopy 10/15 left, with acromioplasty ??? Gastric fundoplication 03/02/07 Aspen ??? Cervical spine surgery 12/31/08 discectomy, fusion C4-7 Dr Dewitt ??? Colonoscopy 07/29/09 ??? Ankle fracture surgery 04/01/10 left ankle [facility] reports that she has been using cigarettes. She has a 15 pack-year smoking history. She reports that she drinks alcohol. She reports that she uses illicit drugs (Marijuana). History Tobacco Use ??? Yes -- 0.5 packs/day for 30 years quit 10/21, Rx verinicline x3 months, smoking again after Family History Reviewed, noncontributory Allergies: Toradol Motrin Home medsPrior to Admission medications Medication Sig Start Date End Date Taking? Authorizing Provider predniSONE (DELTASONE) 5 mg tablet Take 0.5 mg/kg by mouth as needed. 09/17/10 Historical Provider, cephALEXin (KEFLEX) 500 mg capsule Take 1 Cap by mouth 4 times daily. 09/17/10 Avery Erazo MD hydrocodone-acetaminophen (LORTAB;VICODIN) 5-500 mg per tablet Take 1-2 Tabs by mouth every 6 hoursas needed for Pain. 09/17/10 Avery Erazo MD methylphenidate (RITALIN SR; METADATE ER; METHYLIN ER) 20 mg SR tablet Take 2 Tabs by mouth. in themorning at 8:00am 09/09/10 Alex Awan MD methylphenidate (RITALIN) 10 mg tablet Take 1 Tab by mouth daily. Take 1 tablet at noon 09/09/10 Alex Awan MD ropinirole (REQUIP) 2 mg tablet Take 1 Tab by mouth at bedtime. 08/13/10 Jean Munoz MD sumatriptan (IMITREX) 50 mg tablet Take 1 Tab by mouth once as needed for Migraine for 1 dose. Gets9 tabs a month and uses them all 08/11/10 Jean Munoz MD promethazine (PHENERGAN) 25 mg tablet Take 1 Tab by mouth every 6 hours as needed for Nausea. 08/11/10 Jean Munoz MD zolpidem (AMBIEN) 10 mg tablet Take 1 Tab by mouth at bedtime as needed for Sleep. 08/11/10 Jean Munoz MD varenicline (CHANTIX) 1 mg tablet Take 1 Tab by mouth 2 times daily. 08/11/10 Jean Munoz MD baclofen (LIORESAL) 10 mg tablet Take 0.5 Tabs by mouth 2 times daily as needed (spasm). 08/06/10 Ho Holt MD sertraline (ZOLOFT) 100 mg tablet Take 1.5 Tabs by mouth daily. 07/02/10 Jean Munoz MD fluticasone-salmeterol (ADVAIR DISKUS) 500-50 mcg/Dose diskus inhaler Inhale 1 Puff as directed 2 times daily. 05/08/10 Jean Munoz MD levalbuterol (XOPENEX HFA) 45 mcg/Actuation inhaler Inhale 1-2 Puffs as directed every 4 hours as needed for Wheezing. 05/08/10 Jean Munoz MD pregabalin (LYRICA) 150 mg capsule Take 1 Cap by mouth 3 times daily. 04/21/10 Jean Munoz MD mometasone (NASONEX) 50 mcg/Actuation nasal spray 2 Sprays by Nasal route daily. 12/12/09 Jean Munoz MD ROS: A 10 point ROS was completed; pertinent positives and negative were mentioned in HPI: -fever, -cough, -dysphagia, -anorexia, +pain, -otalgia, -congestion PHYSICAL EXAMINATION CONSTITUTIONAL: VITAL SIGNS: BP 115/82 Pulse 80 Temp(Src) 35.7 ??C (96.3 ??F) (Tympanic) Resp 14 SpO2 99% APPEARANCE: The patient appears alert, cooperative, and comfortable. ABILITY TO COMMUNICATE / VOICE: Normal HEAD AND FACE: INSPECTION: [id number] indurated, erythematous area, no fluctuance appreciated, small 1 cm healing incision site, no pus expressed. PALPATION: see above. SALIVARY GLANDS: Submandibular and Parotid glands are normal bilaterally FACIAL STRENGTH: Intact and symmetrical bilaterally EXTERNAL EAR & NOSE: No external ear or nose deformity noted EYES: EYES: normal, pupils equal, round, reactive to light and extraocular movements intact EARS, NOSE, MOUTH AND THROAT: OTOSCOPY: Right external auditory canal: patent and non-inflamed Left external auditory canal: patent and non-inflamed Right tympanic membrane: intact and normally mobile without retraction, perforation or effusion Left tympanic membrane: intact and normally mobile without retraction, perforation or effusion WHISPER/TUNING FORK: Not assessed NOSE: normal turbinates and mucosa: septum in midline LIPS, TEETH & GUMS: normal for age ORAL CAVITY & OROPHARYNX: mass located under left buccal consistent with indurated mass on leftcheek, no pus expressed through the parotid duct HYPOPHARYNX & PHARYNGEAL JEROME: Not examined LARYNX: Not examined NASOPHARYNX: Not examined NECK: GENERAL: Supple, no asymmetry or crepitus, trachea midline THYROID: Normal LYMPHATIC: CERVICAL LYMPH NODES: Single palpable left level II lymph node, mobile, firm RESPIRATORY: LUNGS: Normal to auscultation CARDIOVASCULAR: CARDIOVASCULAR: Heart in regular rate and rhythm, no murmurs NEUROLOGIC: NEUROLOGIC: Normal mood and affect Labs: CBC: Lab Results Component Value Date WBC 9.03 09/19/2010 HGB 12.7 09/19/2010 HCT 35.9 09/19/2010 PLT 272 09/19/2010 NEUTROABS 5.65 09/19/2010 Imaging: US - Findings: The area under the erythematous left cheek demonstrates diffuse soft tissue swellingwith areas of complex hypoechoic fluid collections which communicate with the skin surface and track inferiorly within the subcutaneous tissues creating small fluid pockets. Hyperemia is noted aroundthese small abscesses. The largest fluid collection measures approximately 0.6 x 1.1 x 0.5 cm. Examination of the submandibular and circular demonstrate no lymphadenopathy. Impression: Cellulitis with small microabscesses and left cheek. Procedure: Needle drainage of left cheek microabscess The area was sterilized with alcohol, 2cc of 1% lidocaine with epinephrine was injected in the subcutaneous tissue. An 18 gauge needle was inserted into the area of induration and a very small amount(<0.5cc) of pink purulent fluid was aspirated and sent for bacterial culture. The patient tolerated the procedure without difficulty. Assesment/Plan: 49 y.o. female with left cheek microabscess, failed keflex, possibly etiology may include community acquired MRSA. ?? Admit to ENT ?? F/U bacterial culture of left cheek ?? D/C keflex ?? Received IV unasyn x 1 dose in ED, will start IV clindamycin 900 mg IV q8h for MRSA coverage ?? Regular diet ?? Ambulate ?? Home meds ?? Discussed with Grace Ghosh MD Otolaryngology resident 09/19/2010 13:25 documented in this encounter Consult Notes * Leonor Duque MD - 09/22/2010 1011 EST Infectious Disease Consult Note Admit Date: 09/19/2010 Date of Service: 09/22/2010 Requesting Physician: Dr. Escalante Reason for Consult: Left face cellulitis, abscess HPI: (include onset, location, quality, severity, duration, timing, associating symptoms) 49 y/o female presents with ongoing induration, facial pain due to cellulitis, abscess. Patient reports she was in usual state of health, developed lump one week ago (09/15). Initially not associatedwith significant pain, but the mass grew in size and she developed severe pain and erythema as the lesion grew in size. She noted pustule by the next morning and was able to express large amounts of pus. Despite drainage, she did not report relief of pain. She saw her PCP on 09/17 who performed small incision and drained a small amount of fluid. She was started on cephalexin and instructed to return for ED eval if no improvement of symptoms. On 09/19, she had ongoing pain, facial swelling, erythema and presented to the ED. An U/S was performed which revealed multiple small subcutaneous collections. She was seen by ENT who attempted I and D and admitted. She was initially given a dose of Unasyn then transitioned to IV clindamycin. Given ongoing symptoms, a CT was performed which revealed small subcutaneous collections. An attempt at ID revealed no aspirate. Cultures have remained negative.She was transitioned to IV vancomycin Wednesday evening. Given ongoing symptoms and concern with slow response we are asked to comment on antibiotics and additional therapeutics. Patient reports she notes decrease in facial swelling, but no significant change in pain, redness. Denies fever, chills sweats. She's been having frontal HAs, different than her migraines. She also notes some vertical diplopia with downward gaze. No pain with eye movement. Hearing is normal. No dental pain but does note pain when any food comes in contact with her left buccal mucosa. No odynophagia, dysphagia, but has some left sided neck pain and lymph node swelling. Mild nausea, no vomiting, diarrhea. Denies any trauma to the skin. No dental procedures. Denies any history of recurrent skin infections. Has no prior knowledge of MRSA infection. Daughter who lives in [place] has a history of MRSA soft tissue infection, but patient has not had physical contact with her daughter since this diagnosis. Review of Systems: A ten point review of systems was performed and negative. Past Medical History: has a past medical history of UTI (11/20/99); Pharyngitis (02/10/00); Vaginitis(03/03/00); URI (upper respiratory infection) (08/04/00); Shoulder pain (01/11/01); Conjunctivitis (08/24/01); Sinusitis (10/10/01); Bronchitis (10/10/01); Glucosuria (05/01/03); Pelvic pain in female (10/24/03); Urinary frequency (12/11/03); Malaise and fatigue (12/11/03); Chest pain (12/11/03); Hip pain (01/11/04); Constipation (03/18/04); Otalgia (03/18/04); Abdominal pain (07/27/04); Fever, unspecified (08/26/04); Gastroenteritis (09/15/04); Knee pain (10/03/04); Retrocalcaneal bursitis (back of heel) (11/25/01); Dermatophytosis (03/23/05); Achilles tendonitis (12/04/05); Pneumonia (04/07/06); Urinary retention (06/28/08); Nausea (01/10/09); Hypotension (02/07/09); Right knee pain (04/19/09); Unspecified neuralgia, neuritis, and radiculitis (11/06/09); Brachial neuritis or radiculitis NOS (11/06/09); Laceration (12/26/09); and Dizziness (12/26/09). Past Surgical History: has past surgical history that includes salpingectomy (1981); Hysterectomy, vaginal (); Shoulder arthroscopy (10/15); Gastric fundoplication (03/02/07); Cervical spine surgery (12/31/08); Colonoscopy (07/29/09); and Ankle fracture surgery (04/01/10). Medications: MAR reviewed. Anti-infectives: vancomycin 1250 mg PO Q 12 hours, day 2. Received 48 hours of keflex, 24 hours of clindamycin. Allergies: Toradol and Motrin Family History: Noncontributory Social History: Lives locally with her . Adult children. Ongoing tobacco use. No pets. Does not work outside the home. Vital Signs: BP 115/62 Pulse 72 Temp 35.1 ??C (95.2 ??F) Resp 16 Wt 88.9 kg (195 lb 15.8 oz) SpO2 97% Exam: Gen: Well appearing, NAD. Head/Neck: Fullness and edema along left nasolabial fold. Fading erythema. Region is warm and tender. Has 4-5 cm linear region of induration with more rounded region of induration at inferior pole. Tenderness extends area of induration to maxillary process and mandible. No oral lesions. Mucosa is intact. Neck is supple. Heart: RRR, nl S1/S2. No murmer. Lungs: Mildly prolonged expiratory phase, otherwise clear. Abdomen: soft, NT, ND. Normal BS. Lymph Nodes: Tender node in proximal anterior chain. No erythema. No other adenopathy appreciated. Skin: healing areas of incision and drainage on left cheek, otherwise skin intact. Musculoskeletal: Moves all joints easily, normal and pain-free. Extremities: No edema. Neuro: CN 2-12 intact. Catheters: PIV. Data Review: Laboratory data reviewed. Pertinent positives include: Labs: WBC 6.30 with 54% PMN (admit WBC 9K). Hgb 12.3. Plts 274. Cr .66. Microbiology: Aspirate from 09/20: gram stain with no polys, no bacteria, no growth. Nare swab negative for MRSA. Other: Radiological Studies: I have independently visualized the CT of facial bones with contrast with superficial enhancing collections in subcutaneous tissue on left. Difficult visualization of lower dalal given artifact from dental work. Assessment: 1. Facial abscess. Warmth and induration in setting of prior history of pustule. Suspect ongoing symptoms are related to persistent collections. It's possible that when she expressed purulent material that in fact she mechanically introduced bacteria into adjacent structures. At this point, no evidence of deeper structure infection, although given venous drainage of this location would continue to follow her CN exam closely. Given the history, would expect skin tasneem such as staph aureus (whichis notorious for abscess formation) vs beta hemolytic strep organisms. Doubt anaerobes or GN organisms from OP at play. Agree with concern for MRSA, although doubt we will be able to confirm this. Hosea reciate she's been slow to respond, but has really only been on vancomycin for 2 days, thus would not consider this antibiotic failure attributable to vancomycin. MRSA is not always susceptible to clinda. At this point, would favor continuing vancomycin until she has notable clinical improvement. If she does not continue to improve (further decrease in pain, edema) or has worsening of symptoms would repeat u/s to evaluate for drainable focus of infection. I anticipate we will be able to use PO therapy upon d/c. 2. Cellulitis. Related to #1. Seems to be improving. Recommendations: 1. Continue vancomycin at present dosing. 2. Please check trough prior to 4th dose. Goal is for trough of 15-20. 3. Repeat u/s if does not continue to improve. Discussed and seen with Dr. Duque. Discussed with primary care team PATY FINE MD 09/22/2010 10:11 ID attending addendum I have seen and examined the patient with Dr. Fine, the ID fellow, and agree with her assessment and plan of care as documented. No clinical sx on exam to suggest cavernous sinus thrombosis- no periorbital edema CN 2-12 Were intact, does report some ?diplopia, but EOM were full and intact no lag. CT was of facial bones so cavernous sinus may not be fully appreciated- but will review with ENT If her sx continue, I would have a low threshold to re-image to ensure there is no deeper complication. Leonor Duque MD #[id number] documented in this encounter ED Notes * Jorge Philippe MD - 09/21/2010 0639 EST DOS: 09/19/2010 Chief Complaint Patient presents with ??? Facial Swelling Pt to ED with left facial swelling and cellulitis since Wednesday. Started on oral ABs on Wednesday The patient is a 49 y.o. female who presents today with Facial Swelling HPI Comments: I performed a history and exam of Liset Viera and discussed the case with the physician photography assistant. I reviewed this individual's note and I concur with the documented findings and plan of care.the patient is a 49-year-old female who presents with tender swelling on the left side ofher face. Facial Swelling Review of Systems Past Medical History Diagnosis Date ??? UTI [...] 11/06/09 ??? Laceration 12/26/09 ??? Dizziness 12/26/09 Past Surgical History Procedure Date ??? Salpingectomy 1982 ectopic ??? Hysterectomy, vaginal menorrhagia ??? Shoulder arthroscopy 10/15 left, with acromioplasty ??? Gastric fundoplication 03/02/07 [facility] ??? Cervical spine surgery 12/31/08 discectomy, fusion C4-7 Dr Dewitt ??? Colonoscopy 07/29/09 ??? Ankle fracture surgery 04/01/10 left ankle [facility] Allergies Allergen Reactions ??? Toradol (Ketorolac Tromethamine) Hives ??? Motrin (Ibuprofen) Itching History Substance Use Topics ??? Tobacco Use: Yes -- 0.5 packs/day for 30 years quit 10/21, Rx verinicline x3 months, smoking again after ??? Alcohol Use: Yes rarely Family History Problem Relation Age of Onset ??? Cancer Father esophageal ??? Heart Attack Father ??? Cancer Paternal Aunt breast ??? Migraines Maternal Aunt ??? Stroke Maternal Grandmother ??? Heart Attack Maternal Grandmother ??? Heart Disease Maternal Grandmother ??? Cancer Paternal Grandmother leukemia Vital Signs Temp: 36.4 ??C (97.5 ??F) Temp src: Oral Pulse: 81 Resp: 16 SpO2: 96 % BP: 100/58 mmHg BP Device: BP Machine Patient Position: Semi fowlers BP Cuff Location: Right arm O2 Device: None (Room air) Physical Exam HENT: Tender, indurated erythematous area on her left cheek Radiology orders: RAD US NECK/THYROID CT FACIAL BONES W CONTRAST RAD US NECK/THYROID Final result not shown here.: RAD US HEAD (Results Pending) CT FACIAL BONES (Results Pending) CT FACIAL BONES W CONTRAST (Results Pending) Procedures ED Course: The patient is a 49-year-old female who presents with tender swelling in the left side of her face. Physical exam reveals induration and fluctuance. Ultrasound reveals a complicated abscess collection ENT consulted. Lab tests reviewed. Intravenous antibiotics provided. Patient to be admitted to the hospital with a facial abscess. Discharge Prescriptions New Prescriptions No Discharge Prescriptions for this patient MDM Number of Diagnoses or Management Options Abscess of face: new, needed workup Cervicalgia: Chronic back pain: GERD (gastroesophageal reflux disease): Insomnia: Lumbosacral spondylosis without myelopathy: Migraine: Restless leg syndrome: Tobacco abuse: Amount and/or Complexity of Data Reviewed Clinical lab tests: ordered and reviewed Tests in the radiology section of CPT??: ordered and reviewed Discussion of test results with the performing providers: yes (radiologist) Discuss the patient with other providers: yes (it web development consultant) Independent visualization of images, tracings, or specimens: yes (Lab tests, facial ultrasound) Risk of Complications, Morbidity, and/or Mortality Presenting problems: high Diagnostic procedures: high Management options: high General comments: 5 Patient Progress Patient progress: stable 1. Lumbosacral spondylosis without myelopathy (721.3) baclofen (LIORESAL) tablet 5 mg 2. Abscess of face (682.0A) hydrocodone-acetaminophen (LORTAB;VICODIN) 5-500 mg per tablet 1-2 Tab 3. Chronic back pain (724.5AW) pregabalin (LYRICA) capsule 150 mg 4. Cervicalgia (723.1) pregabalin (LYRICA) capsule 150 mg 5. GERD (gastroesophageal reflux disease) (530.81S) promethazine (PHENERGAN) tablet 25 mg 6. Restless leg syndrome (333.94J) ropinirole (REQUIP) tablet 2 mg 7. Migraine (346.90A) sumatriptan (IMITREX) tablet 50 mg 8. Tobacco abuse (305.1U) varenicline (CHANTIX) tablet 1 mg 9. Insomnia (780.52A) zolpidem (AMBIEN) tablet 10 mg PCP: Jean Munoz MD 09/21/2010 6:42 * Keaton Ayala - 09/19/2010 1812 EST Report to M6. Pt up for transport. Paperwork collated. * Keaton Ayala - 09/19/2010 1706 EST Informed pt of inpatient room assignment and bed status. Pt verbalized an understanding that her assigned bed is occupied and that she will not be transported upstairs in the near future. * Keaton Ayala - 09/19/2010 1658 EST No change in pt status. * Keaton Ayala - 09/19/2010 1547 EST Report received from Teetee Pulido Assumed care of the patient at this time. Pt lying in bed. Rouses to verbal stimuli. NAD noted. Respirations even and unlabored. Will continue to monitor. Plan of care discussed with the patient and the patient verbalized an understanding. Plan of care: awaiting inpatient admission. * Yesica Chakraborty RN - 09/19/2010 1501 EST Pt given pieter radha, ok per Pablo GANDHI * Jenniffer Bullock - 09/19/2010 1353 EST Transported To U/s * Jenniffer Bullockica - 09/19/2010 1309 EST ent eval Pt * Jos Raphael PA - 09/19/2010 1237 EST Images from the original note were not included. DOS: 09/19/2010 Chief Complaint Patient presents with ??? Facial Swelling Pt to ED with left facial swelling and cellulitis since Wednesday. Started on oral ABs on Wednesday The patient is a 49 y.o. female who presents today with Facial Swelling HPI Comments: Pt presents to the ED c/o worsening facial swelling and redness for the last 4 days. Pt states that she first noted some swelling 4-5 days ago and was able to express some purulent material by squeezing her face. She was evaluated by her PCP 2 days ago and diagnosed with a facial abscess. Per pt, an I+D was attempted, but only a small amount of pus was obtained. She was placed on Keflex and has taken this antibiotic as directed. She estimates that she has had 8 doses so far. Pt states that her facial pain and swelling have continued to worsen. She has had subjective fevers and chills, but has not had an objective fever. She confirms generalized malaise. The history is provided by the patient. Facial Swelling Associated symptoms include a fever. Pertinent negatives include no abdominal pain, no headaches and no rash. Review of Systems Constitutional: Positive for fever, chills and fatigue. HENT: Positive for facial swelling. Negative for neck stiffness. Eyes: Negative for visual disturbance. Respiratory: Negative for shortness of breath. Cardiovascular: Negative for chest pain. Gastrointestinal: Negative for abdominal pain. Genitourinary: Negative for dysuria. Musculoskeletal: Negative for back pain. Skin: Positive for color change. Negative for rash. Neurological: Negative for headaches. [...] 11/06/09 ??? Laceration 12/26/09 ??? Dizziness 12/26/09 Past Surgical History Procedure Date ??? Salpingectomy 1982 ectopic ??? Hysterectomy, vaginal menorrhagia ??? Shoulder arthroscopy 10/15 left, with acromioplasty ??? Gastric fundoplication 03/02/07 [place] ??? Cervical spine surgery 12/31/08 discectomy, fusion C4-7 Dr Dewitt ??? Colonoscopy 07/29/09 ??? Ankle fracture surgery 04/01/10 left ankle [facility] Allergies Allergen Reactions ??? Toradol (Ketorolac Tromethamine) Hives ??? Motrin (Ibuprofen) Itching History Substance Use Topics ??? Tobacco Use: Yes -- 0.5 packs/day for 30 years quit 10/21, Rx verinicline x3 months, smoking again after ??? Alcohol Use: Yes rarely Family History Problem Relation Age of Onset ??? Cancer Father esophageal ??? Heart Attack Father ??? Cancer Paternal Aunt breast ??? Migraines Maternal Aunt ??? Stroke Maternal Grandmother ??? Heart Attack Maternal Grandmother ??? Heart Disease Maternal Grandmother ??? Cancer Paternal Grandmother leukemia Vital Signs Temp: 36.4 ??C (97.6 ??F) Temp src: Oral Pulse: 62 Resp: 14 SpO2: 93 % BP: 101/73 mmHg BP Device: BP Machine Patient Position: Sitting BP Cuff Location: Right arm O2 Device: None (Room air) Physical Exam Nursing note and vitals reviewed. Constitutional: She appears well-developed and well-nourished. HENT: Head: Normocephalic and atraumatic. Right Ear: Tympanic membrane, external ear and ear canal normal. Left Ear: Tympanic membrane, external ear and ear canal normal. Nose: Nose normal. Mouth/Throat: Uvula is midline, oropharynx is clear and moist and mucous membranes are normal. 4 cm x 7 cm abscess with fluctuance present inferior to L maxilla. Eyes: Pupils are equal, round, and reactive to light. Right eye exhibits no discharge. Left eye exhibits no discharge. Neck: Normal range of motion. Neck supple. No tracheal deviation present. Cardiovascular: Normal rate, regular rhythm and normal heart sounds. Pulmonary/Chest: Breath sounds normal. No respiratory distress. Abdominal: Soft. No tenderness. Musculoskeletal: Normal range of motion. Neurological: She is alert. She has normal strength. No sensory deficit. Skin: No rash noted. Psychiatric: She has a normal mood and affect. Radiology orders: RAD US NECK/THYROID RAD US NECK/THYROID Final result not shown here.: RAD US HEAD (Results Pending) Procedures ED Course: VSS, afebrile. PE concerning for L-sided facial abscess with surrounding erythema. D/W ENT who evaluated pt in the ED. US showed small fluid collection. ENT requested Unasyn which was administered. Pain was well-controlled with IV Dilaudid throughout ED stay. ENT performed aspiration at bedside - culture sent. Pt was subsequently admitted to ENT for further evaluation. Supervising Physician: Jose Martin Discharge Prescriptions New Prescriptions No Discharge Prescriptions for this patient MDM Number of Diagnoses or Management Options Abscess of face: Cervicalgia: Chronic back pain: GERD (gastroesophageal reflux disease): Insomnia: Lumbosacral spondylosis without myelopathy: Migraine: Restless leg syndrome: Tobacco abuse: Diagnosis management comments: 5 Amount and/or Complexity of Data Reviewed Clinical lab tests: ordered and reviewed Tests in the radiology section of CPT??: ordered Tests in the medicine section of CPT??: reviewed and ordered Discussion of test results with the performing providers: yes Decide to obtain previous medical records or to obtain history from someone other than the patient:yes Review and summarize past medical records: yes Discuss the patient with other providers: yes 1. Lumbosacral spondylosis without myelopathy (721.3) baclofen (LIORESAL) tablet 5 mg 2. Abscess of face (682.0A) hydrocodone-acetaminophen (LORTAB;VICODIN) 5-500 mg per tablet 1-2 Tab 3. Chronic back pain (724.5AW) pregabalin (LYRICA) capsule 150 mg 4. Cervicalgia (723.1) pregabalin (LYRICA) capsule 150 mg 5. GERD (gastroesophageal reflux disease) (530.81S) promethazine (PHENERGAN) tablet 25 mg 6. Restless leg syndrome (333.94J) ropinirole (REQUIP) tablet 2 mg 7. Migraine (346.90A) sumatriptan (IMITREX) tablet 50 mg 8. Tobacco abuse (305.1U) varenicline (CHANTIX) tablet 1 mg 9. Insomnia (780.52A) zolpidem (AMBIEN) tablet 10 mg PCP: Jean Munoz MD 09/19/2010 19:16 documented in this encounter Miscellaneous Notes * Plan of Care - Adrianne Rust - 09/24/2010 7652 EST Problem: PAIN Goal: Patient's Pain And Discomfort Are Adequately Managed Intervention: Assess pain level Pain is to be assessed: admission, every shift, prior to medication administration, within two hours after pain medication administration, before transfer or discharge and every two hours while on [employer] or epidural. Data: at 2245 pt c/o 7/10 discomfort, described as pain on the left side of her face. Action: see MAR for medication given. Response: will reassess in two hours. dArianne Rust RN 09/24/2010 22:49 * Plan of Care - Adrianne Rust - 09/23/2010 2254 EST Problem: PAIN Goal: Patient's Pain And Discomfort Are Adequately Managed Intervention: Assess pain level Pain is to be assessed: admission, every shift, prior to medication administration, within two hours after pain medication administration, before transfer or discharge and every two hours while on [employer] or epidural. Data: at 1700 pt c/o 8/10 discomfort, described as hurting on the left side of her face. Action: see MAR for medication given. Response: pt now states comfort level of 5/10. Adrianne Rust RN 09/23/2010 22:54 * Pharmacy Note - Felicita Bender RPH - 09/23/2010 1444 EST LP is a 49 yo female started on vancomycin 1250mg iv q12hr on 09/20/10 for facial abscess/cellulitis.Per [facility] guidelines a vanco trough was drawn 09/22 at 19:47 (before 5th dose) with a result of 12.6.This lvl is within desired range for this indication. Continue current regimen while indicated. Switch to oral therapy when possible. Felicita Bender,PharmD Pager #[phone] * Plan of Care - Zeenat Bearden RN - 09/23/2010 0530 EST Problem: PAIN Goal: Patient's Pain And Discomfort Are Adequately Managed Active Multi-Disciplinary problems: HOSPITAL ORIENTATION/SAFETY [695430] (09/20/10) PAIN [[id number]] (09/20/10) NUTRITION/DIET [388062] (09/20/10) Data: Pt c/o / facial pain. Pt states Vicodin not relieving pain. Action: Notified Dr. Min, Percocet 2 tabs administered as ordered. Response: Pt states relief with Percocet. Will continue to monitor. Zeenat Bearden RN 09/23/2010 5:27 * Plan of Care - Inna Sanchez RN - 09/21/2010 1123 EST Problem: PAIN Goal: Patient's Pain And Discomfort Are Adequately Managed Intervention: Identify appropriate pain tool Active Multi-Disciplinary problems: HOSPITAL ORIENTATION/SAFETY [356958] (09/20/10) PAIN [724621] (09/20/10) NUTRITION/DIET [213837] (09/20/10) Data: pt c/o facial pain 04/22 Action:medicated with vicadin 2 tablets Response: pt states able to rest after pain medication Inna Sanchez RN 09/21/2010 11:22 * Plan of Care - Gloria Minaya - 09/21/2010 0630 EST Problem: PAIN Goal: Patient's Pain And Discomfort Are Adequately Managed Active Multi-Disciplinary problems: HOSPITAL ORIENTATION/SAFETY [181137] (09/20/10) PAIN [724752] (09/20/10) NUTRITION/DIET [494930] (09/20/10) Data: Patient reports having nausea when given antibiotics and requested taking an anti-emetic prior to administration. Patient c/o 04/22 facial pain. Patient also requested ambien to help sleep Action: Administered ordered phenergan, vicodin, and ambien (see mar) Response: Patient remained free from nausea, reports decrease in pain after given medication, and slept well after ambien given. Gloria Minaya RN 09/21/2010 6:27 * Plan of Care - Tim Garibay RN - 09/20/2010 1129 EST Problem: NUTRITION/DIET Goal: Nutrional Status Is Stable Or Improving Data: Pt complaints of nausea this morning after breakfast, no vomitting Action: Phenergan 25mg given with some gingerale, lights turned off and shades pulled down. Response: Pt was able to take a nap for about an hour and denied any nausea when she woke. Will continue to closely monitor TIM GARIBAY RN 09/20/2010 11:26 * Plan of Care - Tim Garibay RN - 09/20/2010 1124 EST Problem: PAIN Goal: Patient's Pain And Discomfort Are Adequately Managed Intervention: Assess location and characteristics of pain With each pain assessment document: location, intensity, duration and quality of pain as well as relieving factors. Data: Pain in L cheek rated 7/10 this morning Action: 2 tabs Vicodin given with breakfast Response: Good results, denies any pain at this time. Will continue to closely monitor. TIM GARIBAY RN 09/20/2010 11:17 * Plan of Care - Odalys Dunn RN - 09/20/2010 0427 EST Problem: PAIN Goal: Patient's Pain And Discomfort Are Adequately Managed Active Multi-Disciplinary problems: HOSPITAL ORIENTATION/SAFETY [041613] (09/20/10) PAIN [[id number]] (09/20/10) Data: Pt arrived on unit at approximately 1930. Left cheek with band aid in place, pt removed it eventually. Pt c/o 8/10 pain in left cheek. Action: Medicated with prn Vicodin x2. Response: Pt sleeping quietly, continue to monitor. Odalys Dunn RN 09/20/2010 4:19 * Scanned Note-Null - Inpatient, Physician - 09/19/2010 0000 EST * Scanned Note-Null - Inpatient, Physician - 09/19/2010 0000 EST * Scanned Note-Null - Inpatient, Physician - 09/19/2010 0000 EST documented in this encounter Plan of Treatment Upcoming Encounters Date Type Department Care Team (Late st Contact Info) Description 06/29/2024 14:15 EDT Office Visit [facility] [address], [place] [id number] Jean Munoz MD [address] [place] [address] documented as of this encounter Procedures Procedure Name Priority Date/Time Associated Diagnosis Comments COMPLETE BLOOD COUNT AND DIFFERENTIAL Routine 09/25/2010 5:50 EST BUN STAT 09/25/2010 5:50 EST CREATININE STAT 09/25/2010 5:50 EST ELECTROLYTES STAT 09/25/2010 5:50 EST COMPLETE BLOOD COUNT AND DIFFERENTIAL Routine 09/24/2010 5:57 EST BUN STAT 09/24/2010 5:57 EST CREATININE STAT 09/24/2010 5:57 EST ELECTROLYTES STAT 09/24/2010 5:57 EST BUN STAT 09/23/2010 8:09 EST CREATININE STAT 09/23/2010 8:09 EST ELECTROLYTES STAT 09/23/2010 8:09 EST VANCOMYCIN TROUGH Timed 09/22/2010 19: 47 EST COMPLETE BLOOD COUNT AND DIFFERENTIAL STAT 09/22/2010 7:11 EST BUN STAT 09/22/2010 7:11 EST CREATININE STAT 09/22/2010 7:11 EST ELECTROLYTES STAT 09/22/2010 7:11 EST COMPLETE BLOOD COUNT AND DIFFERENTIAL STAT 09/21/2010 6:39 EST BUN STAT 09/21/2010 6:39 EST CREATININE STAT 09/21/2010 6:39 EST ELECTROLYTES STAT 09/21/2010 6:[address] FACIAL BONES W CONTRAST 09/20/2010 19:22 EST SCREENING GLUCOSE STAT 09/20/2010 6:4 1 EST COMPLETE BLOOD COUNT AND DIFFERENTIAL STAT 09/20/2010 6:41 EST BUN STAT 09/20/2010 6:41 EST CREATININE STAT 09/20/2010 6:41 EST ELECTROLYTES STAT 09/20/2010 6:41 EST MRSA PCR Routine 09/19/2010 21:49 EST BACTERIAL CULTURE/SMEAR STAT 09/19/2010 16:14 EST BACTERIAL CULTURE, OTHER STAT 09/19/2010 16:14 EST RAD US NECK/THYROID 09/19/2010 1 3:49 EST COMPLETE BLOOD COUNT AND DIFFERENTIAL STAT 09/19/2010 12:42 EST documented in this encounter Results * (ABNORMAL) HEMAGRAM AND DIFFERENTIAL (09/25/2010 5:50 EST) WBC 6.28 4.0 - 12.4 K/cmm [facility] RBC 3.56(L) 3.86 - 5.04 M/cmm [facility] Hemoglobin 12.0 11.6 - 15.2 gm/dl [facility] HCT 34.4(L) 34.9 - 44.4 % [facility] MCV 97 81 - 98 fl [facility] MCH 33.8(H) 26.7 - 33.3 pg [facility] MCHC 34.9 32.1 - 35.9 gm/dl [facility] PLT 259 141 - 320 K/cmm [facility] RDW-CV 14.1 11.7 - 14.6 % [facility] % Neutrophils 53.4 45.5 - 79.7 % [facility] % Lymphocytes 32.4 15.0 - 46.8 % [facility] % Monocytes 8.7 1.8 - 12.0 % [facility] % Eosinophils 4.9 0.6 - 6.9 % [facility] % Basophils 0.6 0.2 - 1.4 % [facility] ABS Neutrophils 3.36 2.20 - 8.85 K/cmm [facility] ABS Lymphs 2.03 1.09 - 3.30 K/cmm [facility] ABS Monocytes 0.55 0.1 - 0.8 K/cmm [facility] ABS Eosinophils 0.31 0.03 - 0.61 K/cmm [facility] ABS Basophils 0.04 0.01 - 0.11 K/cmm [facility] Type of Diff: Automated [facility] Blood specimen (specimen) 09/25/2010 5:50 EST 09/25/2010 5:59 EST Grace Rowan MD PACKAGES & DNA PROBE ORDERABLES [facility] [address] [place] [address] * ELECTROLYTES (09/25/2010 5:50 EST) Sodium 137 136 - 145 mEq/L [facility] Potassium 4.4 3.5 - 5.0 mEq/L [facility] Chloride 106 96 - 110 mEq/L [facility] CO2 28 24 - 32 mEq/L [facility] Blood specimen (specimen) 09/25/2010 5:50 EST 09/25/2010 5:59 EST Grace Rowan MD CHEMISTRY & BLOOD GA S ORDERABLES Performing Organization Address [facility] de Phone Number [facility] [address] [place] [address] * (ABNORMAL) CREATININE (09/25/2010 5:50 EST) Creatinine 0.57(L) 0.7 - 1.5 mg/dl [facility] GFR, Calculated >60 ml/min/1.7 3m2 [facility] Blood specimen (specimen) 09/25/2010 5:50 EST 09/25/2010 5:59 EST Grace Rowan MD CHEMISTRY & BLOOD GA S ORDERABLES Performing Organization Address [facility] de Phone Number [facility] [address] [address] * BUN (09/25/2010 5:50 EST) BUN 10 10 - 26 mg/dl [facility] Blood specimen (specimen) 09/25/2010 5:50 EST 09/25/2010 5:59 EST Grace Rowan MD CHEMISTRY & BLOOD GA S ORDERABLES Performing Organization Address [facility] Co de Phone Number [facility] [address] [place] [address] * (ABNORMAL) HEMAGRAM AND DIFFERENTIAL (09/24/2010 5:57 EST) WBC 6.71 4.0 - 12.4 K/cmm [facility] RBC 3.74(L) 3.86 - 5.04 M/cmm [facility] Hemoglobin 12.7 11.6 - 15.2 gm/dl [facility] HCT 36.4 34.9 - 44.4 % [facility] MCV 97 81 - 98 fl [facility] MCH 34.1(H) 26.7 - 33.3 pg [facility] MCHC 35.1 32.1 - 35.9 gm/dl [facility] PLT 252 141 - 320 K/cmm [facility] RDW-CV 14.2 11.7 - 14.6 % [facility] % Neutrophils 54.7 45.5 - 79.7 % [facility] % Lymphocytes 32.3 15.0 - 46.8 % [facility] % Monocytes 7.7 1.8 - 12.0 % [facility] % Eosinophils 4.7 0.6 - 6.9 % [facility] % Basophils 0.6 0.2 - 1.4 % [facility] ABS Neutrophils 3.67 2.20 - 8.85 K/cmm [facility] ABS Lymphs 2.17 1.09 - 3.30 K/cmm [facility] ABS Monocytes 0.52 0.1 - 0.8 K/cmm [facility] ABS Eosinophils 0.32 0.03 - 0.61 K/cmm [facility] ABS Basophils 0.04 0.01 - 0.11 K/cmm [facility] Type of Diff: Automated [facility] Blood specimen (specimen) 09/24/2010 5:57 EST 09/24/2010 6:09 EST Grace Rowan MD PACKAGES & DNA PROBE ORDERABLES [facility] [address] [place] [address] * ELECTROLYTES (09/24/2010 5:57 EST) Sodium 138 136 - 145 mEq/L [facility] Potassium 4.3 3.5 - 5.0 mEq/L [facility] Chloride 102 96 - 110 mEq/L [facility] CO2 26 24 - 32 mEq/L [facility] Blood specimen (specimen) 09/24/2010 5:57 EST 09/24/2010 6:09 EST Grace Rowan MD CHEMISTRY & BLOOD GA S ORDERABLES Performing Organization Address [facility] de Phone Number [facility] [address] [place] [address] * CREATININE (09/24/2010 5:57 EST) Creatinine 0.70 0.7 - 1.5 mg/dl [facility] GFR, Calculated >60 ml/min/1.7 3m2 [facility] Blood specimen (specimen) 09/24/2010 5:57 EST 09/24/2010 6:09 EST Grace Rowan MD CHEMISTRY & BLOOD GA S ORDERABLES Performing Organization Address [facility] Co de Phone Number [facility] [address] [place] [address] * BUN (09/24/2010 5:57 EST) BUN 11 10 - 26 mg/dl [facility] Blood specimen (specimen) 09/24/2010 5:57 EST 09/24/2010 6:09 EST Grace Rowan MD CHEMISTRY & BLOOD GA S ORDERABLES Performing Organization Address [facility] Co de Phone Number [facility] [address] [place] [address] * ELECTROLYTES (09/23/2010 8:09 EST) Sodium 140 136 - 145 mEq/L [facility] Potassium 4.3 3.5 - 5.0 mEq/L [facility] Chloride 103 96 - 110 mEq/L [facility] CO2 27 24 - 32 mEq/L [facility] Blood specimen (specimen) 09/23/2010 8:09 EST 09/23/2010 8:48 EST Grace Rowan MD CHEMISTRY & BLOOD GA S ORDERABLES Performing Organization Address [facility] Co de Phone Number [facility] [address] [place] [address] * CREATININE (09/23/2010 8:09 EST) Creatinine 0.70 0.7 - 1.5 mg/dl [facility] GFR, Calculated >60 ml/min/1.7 3m2 [facility] Blood specimen (specimen) 09/23/2010 8:09 EST 09/23/2010 8:48 EST Grace Rowan MD CHEMISTRY & BLOOD GA S ORDERABLES Performing Organization Address [facility] Co de Phone Number [facility] [address] [place] [address] * BUN (09/23/2010 8:09 EST) BUN 10 10 - 26 mg/dl [facility] Blood specimen (specimen) 09/23/2010 8:09 EST 09/23/2010 8:48 EST Grace Rowan MD CHEMISTRY & BLOOD GA S ORDERABLES Performing Organization Address [facility] Co de Phone Number [facility] [address] [place] [address] * VANCOMYCIN TROUGH (09/22/2010 19:47 EST) Vancomycin Trough 12.6 10.0 - 20.0 ug/ml [facility] Comment: Vancomycin Trough: ??15.0-20.0 ug/mL [for Staphylococcus aureus bacteremia, endocarditis, meningitis, osteomyelitis, pneumonia.] Vancomycin Dose Start Date [id number] [facility] Vancomycin Dose Start Time 1999 [facility] Type of Draw Venipuncture /Heelstick (Preferred) [facility] Blood specimen (specimen) 09/22/2010 19:47 EST 09/22/2010 20:13 EST Efren Escalante MD CHEMISTRY & BLO OD GAS ORDERABLES Performing Organization Address City/[facility] Co de Phone Number [facility] [address] [place] [address] * ELECTROLYTES (09/22/2010 7:11 EST) Sodium 137 136 - 145 mEq/L [facility] Potassium 4.4 3.5 - 5.0 mEq/L [facility] Chloride 104 96 - 110 mEq/L [facility] CO2 28 24 - 32 mEq/L [facility] Blood specimen (specimen) 09/22/2010 7:11 EST 09/22/2010 7:24 EST Grace Rowan MD CHEMISTRY & BLOOD GA S ORDERABLES Performing Organization Address [facility] de Phone Number [facility] [address] [place] [address] * (ABNORMAL) CREATININE (09/22/2010 7:11 EST) Creatinine 0.66(L) 0.7 - 1.5 mg/dl [facility] GFR, Calculated >60 ml/min/1.7 3m2 [facility] Blood specimen (specimen) 09/22/2010 7:11 EST 09/22/2010 7:24 EST Grace Rowan MD CHEMISTRY & BLOOD GA S ORDERABLES Performing Organization Address [facility] de Phone Number [facility] [address] [place] [address] * BUN (09/22/2010 7:11 EST) BUN 10 10 - 26 mg/dl [facility] Blood specimen (specimen) 09/22/2010 7:11 EST 09/22/2010 7:24 EST Grace Rowan MD CHEMISTRY & BLOOD GA S ORDERABLES Performing Organization Address [facility] Co de Phone Number [facility] [address] [place] [address] * (ABNORMAL) HEMAGRAM AND DIFFERENTIAL (09/22/2010 7:11 EST) WBC 6.30 4.0 - 12.4 K/cmm [facility] RBC 3.64(L) 3.86 - 5.04 M/cmm [facility] Hemoglobin 12.3 11.6 - 15.2 gm/dl [facility] HCT 35.0 34.9 - 44.4 % [facility] MCV 96 81 - 98 fl [facility] MCH 33.7(H) 26.7 - 33.3 pg [facility] MCHC 35.0 32.1 - 35.9 gm/dl [facility] PLT 274 141 - 320 K/cmm [facility] RDW-CV 13.9 11.7 - 14.6 % [facility] % Neutrophils 53.7 45.5 - 79.7 % [facility] % Lymphocytes 34.0 15.0 - 46.8 % [facility] % Monocytes 7.9 1.8 - 12.0 % [facility] % Eosinophils 4.1 0.6 - 6.9 % [facility] % Basophils 0.3 0.2 - 1.4 % [facility] ABS Neutrophils 3.39 2.20 - 8.85 K/cmm [facility] ABS Lymphs 2.14 1.09 - 3.30 K/cmm [facility] ABS Monocytes 0.50 0.1 - 0.8 K/cmm [facility] Eosinophils 0.26 0.03 - 0.61 K/cmm [facility] Basophils 0.02 0.01 - 0.11 K/cmm [facility] Type of Diff: Automated [facility] W[facility] Blood specimen (specimen) 09/22/2010 7:11 EST 09/22/2010 7:24 EST Grace Rowan MD PACKAGES & DNA PROBE ORDERABLES [facility] [address] [place] [address] * ELECTROLYTES (09/21/2010 6:39 EST) Pathologist [facility] [place] Sodium 138 136 - 145 mEq/L [facility] Potassium 4.3 3.5 - 5.0 mEq/L [facility] Chloride 105 96 - 110 mEq/L [facility] CO2 28 24 - 32 mEq/L [facility] Blood specimen (specimen) 09/21/2010 6:39 EST 09/21/2010 6:58 EST Grace Rowan MD CHEMISTRY & BLOOD GA S ORDERABLES Performing Organization Address [facility] Co de Phone Number [facility] [address] [place] [address] * (ABNORMAL) CREATININE (09/21/2010 6:39 EST) Creatinine 0.62(L) 0.7 - 1.5 mg/dl [facility] GFR, Calculated >60 ml/min/1.7 3m2 [facility] Blood specimen (specimen) 09/21/2010 6:39 EST 09/21/2010 6:58 EST Grace Rowan MD CHEMISTRY & BLOOD GA S ORDERABLES Performing Organization Address [facility] Co de Phone Number [facility] [address] [place] [address] * BUN (09/21/2010 6:39 EST) BUN 11 10 - 26 mg/dl [facility] Blood specimen (specimen) 09/21/2010 6:39 EST 09/21/2010 6:58 EST Grace Rowan MD CHEMISTRY & BLOOD GA S ORDERABLES Performing Organization Address [facility] Co de Phone Number [facility] [address] [place] [address] * (ABNORMAL) HEMAGRAM AND DIFFERENTIAL (09/21/2010 6:39 EST) WBC 8.66 4.0 - 12.4 K/cmm [facility] RBC 3.90 3.86 - 5.04 M/cmm [facility] Hemoglobin 13.4 11.6 - 15.2 gm/dl [facility] HCT 38.1 34.9 - 44.4 % [facility] MCV 98 81 - 98 fl [facility] MCH 34.4(H) 26.7 - 33.3 pg [facility] MCHC 35.2 32.1 - 35.9 gm/dl [facility] PLT 287 141 - 320 K/cmm [facility] RDW-CV 14.1 11.7 - 14.6 % [facility] % Neutrophils 58.9 45.5 - 79.7 % [facility] % Lymphocytes 29.6 15.0 - 46.8 % [facility] % Monocytes 7.3 1.8 - 12.0 % [facility] % Eosinophils 3.0 0.6 - 6.9 % [facility] % Basophils 1.2 0.2 - 1.4 % [facility] ABS Neutrophils 5.11 2.20 - 8.85 K/cmm [facility] ABS Lymphs 2.56 1.09 - 3.30 K/cmm [facility] Monocytes 0.63 0.1 - 0.8 K/cmm [facility] Eosinophils 0.26 0.03 - 0.61 K/cmm [facility] Basophils 0.10 0.01 - 0.11 K/cmm [facility] Type of Diff: Automated [facility] WILKINS [facility] Blood specimen (specimen) 09/21/2010 6:39 EST 09/21/2010 6:58 EST Grace Rowan MD PACKAGES & DNA PROBE ORDERABLES Performing Organization Address City/State/[facility] Co de Phone Number [facility] [address] [place] [address] * CT FACIAL BONES W CONTRAST (09/20/2010 19:22 EST) Anatomical Region Laterality Modality Other 09/20/2010 19:2 2 EST 09/21/2010 10:34 EST Narrative 09/21/2010 10:[address] ??facial bones with contrast History: Left cheek cellulitis Technique: Axial contrast enhanced images were obtained through the facial bones with multiplanar reformations. ??3-D reformations were also performed on an independent workstation. Findings: There is a 10 x 7 x 8 mm peripherally enhancing hypodensity in the subcutaneous soft tissues overlying the left cheek. The is a small region of infiltration of the subcutaneous fat lateral and caudal to this lesion. There is a 1.5 x 2 cm perforation of the nasal septum anteriorly. There is mild deviation of the posterior aspect septum to the right the nasal passageways are clear. There is a minimal amount of mucosal thickening within the left sphenoid air cell. No fluid levels are identified. The orbital contents are normal. No acute fracture the facial bones is identified. The temporomandibular joints have normal alignment. The visualized portions of the brain parenchyma are normal. The visualized vascular structures enhance normally. Conclusion: Left cheek cellulitis with a subcentimeter peripherally enhancing collection most consistent with a small abscess Procedure Note 09/21/2010 CT facial bones with contrast History: Left cheek cellulitis Technique: Axial contrast enhanced images were obtained through the facial bones with multiplanar reformations. 3-D reformations were also performed on an independent workstation. Findings: There is a 10 x 7 x 8 mm peripherally enhancing hypodensity in the subcutaneous soft tissues overlying the left cheek. The is a small region of infiltration of the subcutaneous fat lateral and caudal to this lesion. There is a 1.5 x 2 cm perforation of the nasal septum anteriorly. There is mild deviation of the posterior aspect septum to the right the nasal passageways are clear. There is a minimal amount of mucosal thickening within the left sphenoid air cell. No fluid levels are identified. The orbital contents are normal. No acute fracture the facial bones is identified. The temporomandibular joints have normal alignment. The visualized portions of the brain parenchyma are normal. The visualized vascular structures enhance normally. Conclusion: Left cheek cellulitis with a subcentimeter peripherally enhancing collection most consistent with a small abscess Denzel Min MD IMG CT O RDERABLES * ELECTROLYTES (09/20/2010 6:41 EST) Sodium 138 136 - 145 mEq/L [facility] Potassium 4.2 3.5 - 5.0 mEq/L [facility] Chloride 104 96 - 110 mEq/L [facility] CO2 30 24 - 32 mEq/L [facility] Blood specimen (specimen) 09/20/2010 6:41 EST 09/20/2010 6:58 EST Grace Rowan MD CHEMISTRY & BLOOD GA S ORDERABLES Performing Organization Address [facility] de Phone Number [facility] [address] [place] [address] * (ABNORMAL) CREATININE (09/20/2010 6:41 EST) Creatinine 0.66(L) 0.7 - 1.5 mg/dl [facility] GFR, Calculated >60 ml/min/1.7 3m2 [facility] Blood specimen (specimen) 09/20/2010 6:41 EST 09/20/2010 6:58 EST Grace Rowan MD CHEMISTRY & BLOOD GA S ORDERABLES Performing Organization Address [facility] de Phone Number [facility] [address] [place] [address] * BUN (09/20/2010 6:41 EST) BUN 12 10 - 26 mg/dl [facility] Blood specimen (specimen) 09/20/2010 6:41 EST 09/20/2010 6:58 EST Grace Rowan MD CHEMISTRY & BLOOD GA S ORDERABLES Performing Organization Address [facility] de Phone Number [facility] [address] [place] [address] * (ABNORMAL) HEMAGRAM AND DIFFERENTIAL (09/20/2010 6:41 EST) WBC 6.19 4.0 - 12.4 K/cmm [facility] RBC 3.81(L) 3.86 - 5.04 M/cmm [facility] Hemoglobin 12.9 11.6 - 15.2 gm/dl [facility] HCT 36.9 34.9 - 44.4 % [facility] MCV 97 81 - 98 fl [facility] MCH 33.8(H) 26.7 - 33.3 pg [facility] MCHC 34.9 32.1 - 35.9 gm/dl [facility] PLT 280 141 - 320 K/cmm [facility] RDW-CV 14.0 11.7 - 14.6 % [facility] % Neutrophils 45.6 45.5 - 79.7 % [facility] % Lymphocytes 40.2 15.0 - 46.8 % [facility] % Monocytes 7.9 1.8 - 12.0 % [facility] % Eosinophils 5.4 0.6 - 6.9 % [facility] % Basophils 0.9 0.2 - 1.4 % [facility] ABS Neutrophils 2.82 2.20 - 8.85 K/cmm [facility] ABS Lymphs 2.49 1.09 - 3.30 K/cmm [facility] ABS Monocytes 0.49 0.1 - 0.8 K/cmm [facility] ABS Eosinophils 0.33 0.03 - 0.61 K/cmm [facility] ABS Basophils 0.06 0.01 - 0.11 K/cmm [facility] Type of Diff: Automated [facility] LAB Blood specimen (specimen) 09/20/2010 6:41 EST 09/20/2010 6:58 EST Grace Rowan MD PACKAGES & DNA PROBE ORDERABLES Performing Organization Address City/[facility] Co de [place] [address] * (ABNORMAL) SCREENING GLUCOSE (09/20/2010 6:41 EST) Glucose, Screening 120(H) 70 - 100 mg/dl [facility] Blood specimen (specimen) 09/20/2010 6:41 EST 09/20/2010 6:58 EST Grace Rowan MD CHEMISTRY & BLOOD GA S ORDERABLES Performing Organization Address [facility] Co de Phone Number [facility] [address] [place] [address] * MRSA MOLECULAR DETECTION (09/19/2010 21:49 EST) Specimen Description Nasal [facility] Result NEGATIVE for Methicillin Resistant Staphylococcus aureus DNA by PCR. [facility] Specimen of unknown material (specimen) 09/19/2010 21:49 EST 09/19/2010 22:29 EST Grace Rowan MD MICROBIOLOGY - GENER AL ORDERABLES Performing Organization Address [facility] Co de Phone Number [facility] [address] [place] [address] * BACTERIAL CULTURE/SMEAR, OTHER (09/19/2010 16:14 EST) Specimen Description Cheek Specimen submitted on a swab [facility] Gram Smear Result No polys seen No bacteria seen [facility] Result No growth [facility] Report Status Final 09/21/2010 [facility] Specimen of unknown material (specimen) 09/19/2010 16:14 EST 09/19/2010 17:45 EST Grace Rowan MD MICROBIOLOGY - GENER AL ORDERABLES Performing Organization Address [facility] de Phone Number [facility] [address] [place] [address] * BACTERIAL CULTURE, OTHER (09/19/2010 16:14 EST) Specimen Description Cheek Specimen submitted on a swab [facility] Result FLOOR ORDER CORRECTION Credit Issued [facility] Report Status Final 09/19/2010 [facility] Specimen of unknown material (specimen) 09/19/2010 16:14 EST 09/19/2010 17:28 EST Grace Rowan MD MICROBIOLOGY - GENER AL ORDERABLES Performing Organization Address [facility] de Phone Number [facility] [address] [place] [address] * RAD US NECK/THYROID (09/19/2010 13:49 EST) Anatomical Region Laterality Modality Other 09/19/2010 13:4 9 EST 09/19/2010 17:29 EST Narrative 09/19/2010 17:29 EST US NECK/THYROID ??Sep 19, 2010 01:49:00 PM Signs and Symptoms/Comments: ??FACIAL SWELLING Comparison: None Technique: ??Static and ascending grayscale and color flow images were used to examine the left cheek. Findings: The area under the erythematous left cheek demonstrates diffuse soft tissue swelling with areas of complex hypoechoic fluid collections which communicate with the skin surface and track inferiorly within the subcutaneous tissues creating small fluid pockets. ??Hyperemia is noted around these small abscesses. The largest fluid collection measures approximately 0.6 x 1.1 x 0.5 cm. Examination of the submandibular and circular demonstrate no lymphadenopathy. Impression: Cellulitis with small subcutaneous microabscesses and left cheek. Discussed with HIRAM Carrillo I have personally reviewed the images and the above interpretation and agree with the findings. Procedure Note Dave Chavez MD - 09/19/2010 US NECK/THYROID Sep 19, 2010 01:49:00 PM Signs and Symptoms/Comments: FACIAL SWELLING Comparison: None Technique: Static and ascending grayscale and color flow images were used to examine the left cheek. Findings: The area under the erythematous left cheek demonstrates diffuse soft tissue swelling with areas of complex hypoechoic fluid collections which communicate with the skin surface and track inferiorly within the subcutaneous tissues creating small fluid pockets. Hyperemia is noted around these small abscesses. The largest fluid collection measures approximately 0.6 x 1.1 x 0.5 cm. Examination of the submandibular and circular demonstrate no lymphadenopathy. Impression: Cellulitis with small subcutaneous microabscesses and left cheek. Discussed with HIRAM Carrillo I have personally reviewed the images and the above interpretation and agree with the findings. Jos GANDHI IMG US ORDERABLES * (ABNORMAL) HEMAGRAM AND DIFFERENTIAL (09/19/2010 12:42 EST) WBC 9.03 4.0 - 12.4 K/cmm [facility] RBC 3.69(L) 3.86 - 5.04 M/cmm [facility] Hemoglobin 12.7 11.6 - 15.2 gm/dl [facility] HCT 35.9 34.9 - 44.4 % [facility] MCV 97 81 - 98 fl [facility] MCH 34.5(H) 26.7 - 33.3 pg [facility] MCHC 35.5 32.1 - 35.9 gm/dl [facility] PLT 272 141 - 320 K/cmm [facility] RDW-CV 13.7 11.7 - 14.6 % [facility] % Neutrophils 62.5 45.5 - 79.7 % [facility] % Lymphocytes 27.0 15.0 - 46.8 % [facility] % Monocytes 6.3 1.8 - 12.0 % [facility] % Eosinophils 3.8 0.6 - 6.9 % [facility] % Basophils 0.4 0.2 - 1.4 % [facility] ABS Neutrophils 5.65 2.20 - 8.85 K/cmm [facility] ABS Lymphs 2.44 1.09 - 3.30 K/cmm [facility] ABS Monocytes 0.57 0.1 - 0.8 K/cmm [facility] ABS Eosinophils 0.34 0.03 - 0.61 K/cmm [facility] ABS Basophils 0.03 0.01 - 0.11 K/cmm [facility] Type of Diff: Automated [facility] Blood specimen (specimen) 09/19/2010 12:42 EST 09/19/2010 12:55 EST Jos GANDHI PACKAGES & DNA PROBE ORDERABLES [facility] [address] [place] [address] documented in this encounter Visit Diagnoses Diagnosis Lumbosacral spondylosis without myelopathy Abscess of face Cellulitis and abscess of face Chronic back pain Backache, unspecified Cervicalgia GERD (gastroesophageal reflux disease) Esophageal reflux Restless leg syndrome Restless legs syndrome (RLS) Migraine Migraine, unspecified, without mention of intractable migraine without mention of status migrainosus Tobacco abuse Tobacco use disorder Insomnia Insomnia, unspecified Screening for osteoporosis- Primary [...] oral, EVERY 4 HOURS PRN, Starting on Wed09/19/10 at 1954, Until Wed09/25/10 at 1331, Pain, STAT Given 09/24/2010 0:08 EST 650 mg ampicillin-sulbactam (UNASYN) 3,000 mg in sodium chloride 0.9 % 100 mL infusion 3,000 mg (3 g), intravenous, Administer over 30 Minutes, NOW X1, 1 dose, On Wed09/19/10 at 1445, STAT Given 09/19/2010 14:45 EST 3,000 mg clindamycin (CLEOCIN) IVPB 900 mg 900 mg, intravenous, Administer over 30 Minutes, EVERY 8 HOURS, 21 doses, First dose (after last modification) on Wed09/20/10 at 0000, Last dose on Wed09/26/10 at 1600, STAT Given 09/20/2010 16:47 EST 900 mg Given 09/20/2010 8:07 EST 900 mg Given 09/19/2010 23:32 EST 900 mg clotrimazole (GYNE-LOTRIMIN) 1 % vaginal cream 1 Applicator 1 Applicator, vaginal, AT BEDTIME, 1 dose, First dose (after last reorder) on Wed09/24/10 at 1045, Routine Given 09/24/2010 11:04 EST 1 Applicator diphenhydrAMINE (BENADRYL) capsule 25 mg 25 mg, oral, EVERY 6 HOURS PRN, Starting on Wed09/24/10 at 0033, Until Wed09/25/10 at 1331, Itching, Routine Given 09/24/2010 1:42 EST 25 mg docusate sodium (COLACE) capsule 100 mg 100 mg, oral, 2 TIMES DAILY PRN, Starting on Wed09/19/10 at 1954, Until Wed09/25/10 at 1331, Constipation, STAT Given 09/23/2010 9:28 EST 100 mg Given 09/20/2010 20:57 EST 100 mg fentanyl citrate (PF) 50 mcg/mL injection 50 mcg 50 mcg, intravenous, NOW X1, 1 dose, On Wed09/19/10 at 1215, STAT Given 09/19/2010 12:27 EST 50 mcg fluconazole (DIFLUCAN) 150 mg 150 mg, oral, NOW X1, 1 dose, On Wed09/23/10 at 1815, STAT Given 09/23/2010 18:54 EST 150 mg fluticasone-salmeterol (ADVAIR) 500-50 mcg/dose diskus inhaler 1 Puff 1 Puff, inhalation, 2 TIMES DAILY, First dose on Wed09/19/10 at 2100, Until Discontinued, STAT Given 09/20/2010 0 :10 EST 1 Puff fluticasone-salmeterol (ADVAIR) 500-50 mcg/dose diskus inhaler 1 Puff 1 Puff, inhalation, 2 TIMES DAILY, First dose (after last modification) on 09/20/10 at 0900, Until Discontinued, STAT Given 09/25/2010 8:24 EST 1 Puff Given 09/24/2010 20:34 EST 1 Puff Given 09/24/2010 8:25 EST 1 Puff hydrocodone-acetaminophen (LORTAB;VICODIN) 5-500 mg per tablet 1-2 Tab 1-2 Tablet, oral, EVERY 4 HOURS PRN, Starting on Wed09/19/10 at 1954, Until Wed09/22/10 at 2010, Pain, STAT Given 09/22/2010 17:42 EST 2 Tablets Given 09/22/2010 13:35 EST 2 Tablets Given 09/22/2010 9:15 EST 2 Tablets HYDROmorphone (PF) (DILAUDID) 1 mg/mL injection 0.5 mg 0.5 mg, intravenous, NOW X1, 1 dose, On Wed09/19/10 at 1445, STAT Given 09/19/2010 14:45 EST 0.5 mg HYDROmorphone (PF) (DILAUDID) 1 mg/mL injection 1 mg 1 mg, intravenous, NOW X1, 1 dose, On Wed09/19/10 at 1615, STAT Given 09/19/2010 16:07 EST 1 mg levalbuterol (XOPENEX HFA) inhaler 1 Puff 1 Puff (45 mcg), inhalation, EVERY 4 HOURS PRN, Starting on 1/7/11 at 1954, Until 09/20/10 at 0036, Other, wheeze, STAT Given 09/20/2010 0:10 EST 2 Puffs Lidocaine 4%-Epinephrine 0.18%-Tetracaine 0.5% 3 mL vial topical (top), NOW X1, 1 dose, On Wed09/19/10 at 1230 Given 09/19/2010 12:32 EST mL magnesium hydroxide (MILK OF MAGNESIA) 400 mg/5 mL suspension 30 mL 30 mL, oral, DAILY PRN, Starting on Wed09/19/10 at 1954, Until [place] 09/25/10 at 1331, Constipation, STAT Given 09/23/2010 9:27 EST 30 mL oxycodone-acetaminophen (PERCOCET) 5-325 mg per tablet 1-2 Tab 1-2 Tablet, oral, EVERY 4 HOURS PRN, Starting on Wed09/22/10 at 2010, Until [place] 09/25/10 at 1331, Pain, Routine Given 09/25/2010 6:56 EST 2 Tablets Given 09/25/2010 2:54 EST 2 Tablets Given 09/24/2010 22:37 EST 2 Tablets oxycodone-acetaminophen (PERCOCET) 5-325 mg per tablet 1 dose, Starting on 09/22/10 at 2019, Until 09/22/10 at 2024 pregabalin (LYRICA) capsule 150 mg 150 mg, oral, 3 TIMES DAILY, First dose on Wed09/19/10 at 2100, Until Discontinued, STAT Given 09/25/2010 8:24 EST 150 mg Given 09/24/2010 20:34 EST 150 mg Given 09/24/2010 13:47 EST 150 mg promethazine (PHENERGAN) tablet 25 mg 25 mg, oral, EVERY 6 HOURS PRN, Starting on Wed09/19/10 at 1954, Until [place] 09/25/10 at 1331, Nausea, STAT Given 09/24/2010 20:39 EST 25 mg Given 09/23/2010 22:39 EST 25 mg Given 09/23/2010 5:54 EST 25 mg ropinirole (REQUIP) tablet 2 mg 2 mg, oral, AT BEDTIME, First dose on Wed09/19/10 at 2100, Until Discontinued, STAT Given 09/24/2010 20:34 EST 2 mg Given 09/23/2010 21:13 EST 2 mg Given 09/22/2010 20:24 EST 2 mg senna (SENOKOT) tablet 1-2 Tab 1-2 Tablet, oral, DAILY PRN, Starting on Wed09/19/10 at 1954, Until [place] 09/25/10 at 1331, Constipation, STAT Given 09/20/2010 20:57 EST 2 Tablets sertraline (ZOLOFT) tablet 150 mg 150 mg, oral, DAILY, First dose on Wed09/19/10 at 2014, Until Discontinued, STAT Given 09/25/2010 8:24 EST 150 mg Given 09/24/2010 8:25 EST 150 mg Given 09/23/2010 9:18 EST 150 mg vancomycin (VANCOCIN) 1,250 mg in dextrose 5% (D5W) 250 mL IVPB 1,250 mg (15 mg/kg ? 88.9 kg), intravenous, Administer over 75 Minutes, EVERY 12 HOURS, 14 doses, First dose on 09/20/10 at 2014, Last dose on 09/27/10 at 0815, Routine Given 09/25/2010 8:25 EST 1,250 mg Given 09/24/2010 20:34 EST 1,250 mg Given 09/24/2010 7:53 EST 1,250 mg varenicline (CHANTIX) tablet 1 mg 1 mg, oral, 2 TIMES DAILY WITH BREAKFAST & DINNER, First dose on Wed09/19/10 at 2014, Until Discontinued, STAT Given 09/25/2010 8:24 EST 1 mg Given 09/24/2010 18:39 EST 1 mg Given 09/24/2010 7:53 EST 1 mg zolpidem (AMBIEN) tablet 10 mg 10 mg, oral, AT BEDTIME PRN, Starting on Wed09/19/10 at 1954, Until [place] 09/25/10 at 1331, Sleep, STAT Given 09/24/2010 1:42 EST 10 mg Given 09/23/2010 0:25 EST 10 mg Given 09/22/2010 1:13 EST 10 mg documented in this encounter Discontinued Medications Medication Sig Discontinue Reason Start Date End Da te cephALEXin (KEFLEX) 500 mg capsuleIndications:Absce ss of face Take 1 Cap by mouth 4 times daily. 09/17/2010 09/19/2010 hydrocodone-acetaminophe n (LORTAB;VICODIN) 5-500 mg per tabletIndications:Absces s of face Take 1-2 Tabs by mouth every 6 hours as needed for Pain. 09/17/2010 09/24/2010 documented as of this encounter Historical Medications * This list may reflect changes made after this encounter. Medication Sig Dispensed Refills Start Date End Date docusate sodium (COLACE) 100 mg capsule Take 1 Capsule by mouth 2 times daily as needed for Constipation. 09/24/2010 added in this encounter Active and Recently Administered Medications Times are shown in EST. Scheduled Medication Order 09/23/2010 09/24/2010 09/25/2010 clotrimazole (GYNE-LOTRIMIN) 1 % vaginal cream 1 Applicator (COMPLETED) 1 Applicator, vaginal, AT BEDTIME, 1 dose, First dose (after last reorder) on Wed09/24/10 at 1045, Routine 1104 (Given - Provider: Shelbie Beauchamp) fluconazole (DIFLUCAN) 150 mg (COMPLETED) 150 mg, oral, NOW X1, 1 dose, On Wed09/23/10 at 1815, STAT 1854 (Given - Provider: Adrianne Rust) fluticasone-salmeterol (ADVAIR) 500-50 mcg/dose diskus inhaler 1 Puff (CANCELED) 1 Puff, inhalation, 2 TIMES DAILY, First dose (after last modification) on Wed09/20/10 at 0900, Until Discontinued, STAT 0919 (Given - Provider: John Mercer)211 (Given - Provider: Adrianne Rust) 0825 (Given - Provider: Shelbie Beauchamp)2033 (Given - Provider: Adrianne Rust) 0824 (Given - Provider: Tim Garibay, CHRIS) pregabalin (LYRICA) capsule 150 mg (CANCELED) 150 mg, oral, 3 TIMES DAILY, First dose on Wed09/19/10 at 2100, Until Discontinued, STAT 0918 (Given - Provider: John Mercer)1522 (Given - Provider: Shelbie Beauchamp)211 (Given - Provider: Adrianne Rust) 0824 (Given - Provider: Shelbie Beauchamp)1347 (Given - Provider: Shelbie Beauchamp)2033 (Given - Provider: Adrianne Rust) 0824 (Given - Provider: Tim Garibay, CHRIS) ropinirole (REQUIP) tablet 2 mg (CANCELED) 2 mg, oral, AT BEDTIME, First dose on Wed09/19/10 at 2100, Until Discontinued, STAT 2112 (Given - Provider: Adrianne Rust) 2033 (Given - Provider: Adrianne Rust) sertraline (ZOLOFT) tablet 150 mg (CANCELED) 150 mg, oral, DAILY, First dose on Wed09/19/10 at 2014, Until Discontinued, STAT 0918 (Given - Provider: John Mercer) 0825 (Given - Provider: Shelbie Beauchamp) 0824 (Given - Provider: Tim Garibay, CHRIS) vancomycin (VANCOCIN) 1,250 mg in dextrose 5% (D5W) 250 mL IVPB (CANCELED) 1,250 mg (15 mg/kg ? 88.9 kg), intravenous, Administer over 75 Minutes, EVERY 12 HOURS, 14 doses, First dose on 09/20/10 at 2014, Last dose on 09/27/10 at 0815, Routine 0903 (Given - Provider: Shelbie Beauchamp)2023 (Given - Provider: Adrianne Rust) 075 (Given - Provider: Shelbie Beauchamp)2033 (Given - Provider: Adrianne Rust) 0825 (Given - Provider: Tim Garibay, CHRIS) varenicline (CHANTIX) tablet 1 mg (CANCELED) 1 mg, oral, 2 TIMES DAILY WITH BREAKFAST & DINNER, First dose on Wed09/19/10 at 2014, Until Discontinued, STAT 0919 (Given - Provider: John Mercer)1720 (Given - Provider: Adrianne Rust) 0753 (Given - Provider: Shelbie Beauchamp)1839 (Given - Provider: Adrianne Rust) 0824 (Given - Provider: Tim Garibay, CHRIS) PRN Medication Order 09/23/2010 09/24/2010 09/25/2010 acetaminophen (TYLENOL) tablet 650 mg (CANCELED) 650 mg, oral, EVERY 4 HOURS PRN, Starting on Wed09/19/10 at 1954, Until [place] 09/25/10 at 1331, Pain, STAT 0008 (Given - Provider: Troy Bryant RN) diphenhydrAMINE (BENADRYL) capsule 25 mg (CANCELED) 25 mg, oral, EVERY 6 HOURS PRN, Starting on Wed09/24/10 at 0033, Until [place] 09/25/10 at 1331, Itching, Routine 0142 (Given - Provider: Troy Bryant RN) docusate sodium (COLACE) capsule 100 mg 100 mg, oral, 2 TIMES DAILY PRN, Starting on Wed09/19/10 at 1954, Until [place] 09/25/10 at 1331, Constipation, STAT 0928 (Given - Provider: John Mercer) magnesium hydroxide (MILK OF MAGNESIA) 400 mg/5 mL suspension 30 mL (CANCELED) 30 mL, oral, DAILY PRN, Starting on Wed09/19/10 at 1954, Until [place] 09/25/10 at 1331, Constipation, STAT 0927 (Given - Provider: John Mercer) oxycodone-acetaminophe n (PERCOCET) 5-325 mg per tablet 1-2 Tab 1-2 Tablet, oral, EVERY 4 HOURS PRN, Starting on Wed09/22/10 at 2010, Until [place] 09/25/10 at 1331, Pain, Routine 0025 (Given - Provider: Zeenat Bearden RN)0437 (Given - Provider: Zeenat Bearden RN)0918 (Given - Provider: John Mercer)1301 (Given - Provider: John Mercer)1720 (Given - Provider: Adrianne Rust)2112 (Given - Provider: Adrianne Rust) 0142 (Given - Provider: Troy Bryant RN)0609 (Given - Provider: Troy Bryant RN)1043 (Given - Provider: Shelbie Beauchamp)1426 (Given - Provider: Shelbie Beauchamp)1840 (Given - Provider: Adrianne Rust)2237 (Given - Provider: Adrianne Rust) 0254 (Given - Provider: Garrick Parmar RN)0656 (Given - Provider: Garrick Parmar RN) promethazine (PHENERGAN) tablet 25 mg (CANCELED) 25 mg, oral, EVERY 6 HOURS PRN, Starting on 09/19/10 at 1954, Until [place] 09/25/10 at 1331, Nausea, STAT 0554 (Given - Provider: Zeenat Bearden, CHRIS)223 (Given - Provider: Cate Guzman, CHRIS) 2038 (Given - Provider: Adrianne Rust) zolpidem (AMBIEN) tablet 10 mg (CANCELED) 10 mg, oral, AT BEDTIME PRN, Starting on 09/19/10 at 1954, Until [place] 09/25/10 at 1331, Sleep, STAT 0025 (Given - Provider: Zeenat Bearden, CHRIS) 0142 (Given - Provider: Troy Bryant RN) documented in this encounter Orders Medications Ordered That Victor Manuel ht Not Have Been Administered Count Last Ordered Date First Ordered Date clotrimazole (GYNE-LOTRIMIN) 1 % vaginal cream 1 Applicator 2 09/24/2010 levalbuterol (XOPENEX HFA) inhaler 2 Puff 1 09/20/2010 baclofen (LIORESAL) tablet 5 mg 1 1 clindamycin (CLEOCIN) IVPB 900 mg 1 011 sumatriptan (IMITREX) tablet 50 mg 1 2010 Nursing Count Last Ordered Date First Orde red Date INSERT SALINE LOCK 1 09/19/2010 IV Count Last Ordered Date First Orde red Date IV REQUEST 5 09/24/2010 09/20/2010 Admission Count Last Ordered Date First Orde red Date NOTIFY PPS OF DISCHARGE COMPLETE 1 09/25/19 11 ADMIT TO INPATIENT 3 09/19/2010 ADMITTING CONDITION 1 09/19/2010 PPS NOTIFICATION OF PATIENT ARRIVAL ON UNIT 1 09/19/2010 TEACHING SERVICE 1 09/19/2010 Discharge Count Last Ordered Date First Orde red Date DISCHARGE PATIENT 1 09/25/2010 documented in this encounter Care Teams Field Crop Farmer Relationship Specialty Start Date End Date Jean Munoz MD [address] [place] [address] PCP - General 12/31/08 Manny Rizzo MD [employer] [place] [address] 04/20/10 documented as of this encounter
--- OUTSIDE RECORDS SUMMARY | 2024-06-10 07:34 | XMS_ITS | Encounter Summary ---
Author Organization [facility] Address [address] [place] [address] Care Team Providers Care Securities Compliance Examiner Name Role Phone Jean Munoz MD Primary Care Provider Manny Rizzo MD Unavailable Reason for Visit * Reason Onset Date Comments Medications Refill 10/06/2010 Encounter Details Date Type Department Care Team (Late st Contact Info) Description 10/06/2010 Refill [facility] Neurology - [address] [id number] Mik Caban MD [address] [place] [phone] Medications Refill Social History Tobacco Use [...] at noon 30 Tab 0 10/07/2010 10/29/2010 documented in this encounter Miscellaneous Notes * Telephone Encounter - Corrina Ac RN - 10/07/2010 0937 EST Mailed refills to pt per request. * Telephone Encounter - Elizabeth Oreilly - 10/06/2010 1519 EST Requesting scripts for Ritalin SR20 - Takes 2 at 8am and Ritalin 10mg - takes one at 1pm to be mailed to her home at [address] [place] [address] [place] [address]. documented in this encounter Plan of Treatment Upcoming Encounters Date Type Department Care Team (Late st Contact Info) Description 06/29/2024 14:15 EDT Office Visit [facility] Family Medicine [facility] [address] [place], [place] [id number] Jean Munoz MD [address] [place] [phone] documented as of this encounter Visit Diagnoses Not on filedocumented in this encounter Discontinued Medications Medication Sig Discontinue Reason Start Date End Da te methylphenidate (RITALIN) 10 mg tablet Take 1 Tab by mouth daily. Take 1 tablet at noon Reorder 09/09/2010 10/07/2010 methylphenidate (RITALIN SR; METADATE ER; METHYLIN ER) 20 mg SR tablet Take 2 Tabs by mouth. in the morning at 8:00am Reorder 09/09/2010 10/07/2010 documented as of this encounter Care Teams Securities Compliance Examiner Relationship Specialty Start Date End Date Jean Munoz MD [address] [place] [address] PCP - General 12/31/08 Manny Rizzo MD [address] [place] [phone] 04/20/10 documented as of this encounter
--- OUTSIDE RECORDS SUMMARY | 2024-06-10 07:34 | XMS_ITS | Encounter Summary ---
Author Organization [facility] Address [address] [place] [address] Care Team Providers Care Supervisor Brake Repair Name Role Phone Jean Munoz MD Primary Care Provider Manny Rizzo MD Unavailable Reason for Visit * Reason Onset Date Comments Other 10/20/2010 Encounter Details Date Type Department Care Team (Late st Contact Info) Description 10/20/2010 Telephone [facility] Infectious Disease - [facility] [address], [place] [phone] Leonor Duque MD [address] [facility], [address] [place] [address] Other Social History Tobacco Use [...] encounter Miscellaneous Notes * Telephone Encounter - Carolina Willard - 10/20/2010 1031 EST Patient stated that she had an Ultrasound, and was told that she would receive a call to be scheduled with Dr Duque again to discuss results, and treatment plans. Dr Duque's next available is 12/19, which I have scheduled her. Patient would like to know if Dr Duque wants to see her sooner. Would like a call back at [phone]. documented in this encounter Plan of Treatment Upcoming Encounters Date Type Department Care Team (Late st Contact Info) Description 06/29/2024 14:15 EDT Office Visit [facility] [address] [place] [address] Jean Munoz MD [address] [place] [address] documented as of this encounter Visit Diagnoses Not on filedocumented in this encounter Care Teams Supervisor Brake Repair Relationship Specialty Start Date End Date Jean Munoz MD [address] [place] [address] PCP - General 12/31/08 Manny Rizzo MD [address] [place] [address] 04/20/10 documented as of this encounter
--- OUTSIDE RECORDS SUMMARY | 2024-06-10 07:34 | XMS_ITS | Encounter Summary ---
Author Organization [facility] Address [address] [place] [address] Care Team Providers Care Corporate Development Manager Name Role Phone Jean Munoz MD Primary Care Provider Manny Rizzo MD Unavailable Reason for Visit * Reason Comments Follow-up Encounter Details Date Type Department Care Team (Late st Contact Info) Description 10/06/2010 13:00 EST Office Visit [facility] Infectious Disease - [address] [phone] Unknown, Provider, Leonor Duque MD [address] [facility], [address] [place] [address] Cellulitis and abscess of face (Primary Dx) Social History Tobacco [...] Sign Reading Time Taken Comments Blood Pressure 100/65 10/06/2010 1258 EST Pulse - - Temperature 37.1 ??C (98.7 ??F) 10/06/2010 1258 EST Respiratory Rate - - Oxygen Saturation - - Inhaled Oxygen Concentration - - Weight 87.1 kg (192 lb) 10/06/2010 1258 EST Height - - Body Mass Index 32.96 07/14/2010 1024 EDT documented in this encounter [...] for 10 days. 20 Tab 0 10/06/2010 hydrocodone-acetaminophen (LORTAB;VICODIN) 5-500 mg per tablet Take 1 Tab by mouth every 6 hours as needed for Pain. 30 Tab 0 10/06/2010 10/20/2010 documented in this encounter Progress Notes * Leonor Duque MD - 10/16/2010 0900 EST DIVISION OF INFECTIOUS DISEASE PROGRESS/FOLLOWUP NOTE - 10/06/2010 SUBJECTIVE: Liset returns to the infectious disease clinic for followup of her left cheek abscess. She was last seen in our clinic on the , at which time all of her laboratory indices were normal except for a slightly elevated platelet count. In addition, she says she has continued to have some nausea. She now thinks is probably related to the Bactrim. She has had no further fevers or chills. She still has tenderness in that area. She has not had any diarrhea. She continues to have this intermittent blurriness of vision, although again was reading in the office today before I came in. She does not describe any further diplopia. She has headaches on occasion, although maybe these are lessthan they were recently. REVIEW OF SYSTEMS: A 10-point review of systems was conducted and is otherwise negative except as described above in the HPI. MEDICATIONS: Baclofen 10 mg p.o. b.i.d. p.r.n. Keflex 500 mg 4 times a day. Docusate 100 mg p.o. b.i.d. Bactrim 1 double-strength tablet p.o. b.i.d. Advair daily. Lortab 5/500 q.6h p.r.n. Xopenex inhaler. Ritalin. Nasonex Prednisone 5 mg she takes when she needs it if she has COPD exacerbation. Requip at bedtime. Zoloft 100 mg daily. Imitrex as needed. Chantix p.o. b.i.d. Ambien 10 mg at bedtime. OBJECTIVE: On exam, BP is 100/65. She is 87 kilos. She is 98.7 degrees. She is generally a very pleasant woman in no apparent distress. Extraocular movements are full and intact. Cranial nerves II-XII were tested and are normal. She has no erythema or warmth of that left cheek. She does have some subcutaneous nodules, which I can feel that are the residual areas of that abscess, although these are smaller in size. They are still quite tender to palpation. She has no evidence of skin rash, clubbing or cyanosis. LABORATORIES: From 09/30 demonstrate a creatinine of 0.83. Normal LFTs, a white count of 7.77 and H and H of 14 and 41 and platelets of 354. ASSESSMENT AND PLAN: This is a 49-year-old woman with a small resolving left cheek abscess, although continued pain. In the interim, she has been to see ENT who felt they would reevaluate her after her antibiotic course is through. She has had about 2-1/2 weeks of therapy. I think given the abscess, the plan would be to give her a full 4 weeks. I am worried that the nausea may be related to the Bactrim and so, in an effort to cover MRSA, we had started the Bactrim, I think we could easily switch that to doxycycline. She does not have any allergies and there is nothing that would interact withthis on her medication list. I do think she needs to follow up here, and I may just end up ultrasoun ding that area one more time to make sure there is not any smaller collection does not need to be drained as she is still having so much tenderness. The plan will be the followin. She will discontinue her Bactrim. 2. She will continue the Keflex. 3. She will have doxycycline 100 mg p.o. b.i.d. 4. We will ultrasound that area. 5. She will follow up with ENT and ID clinic Electronically Signed by Leonor Duque MD 10/16/2010 09:00 Leonor Duque MD - Leonor Duque MD - [facility] Job ID: SM Doc ID: [id number] Ext Doc ID: [id number] cc: * Leonor Duque MD - 10/06/2010 1643 EST This office note has been dictated. documented in this encounter Plan of Treatment Upcoming Encounters Date Type Department Care Team (Late st Contact Info) Description 06/29/2024 14:15 EDT Office Visit [address] [address] Jean Munoz MD [address] [place] [address] documented as of this encounter Procedures Procedure Name Priority Date/Time Associated Diagnosis Comments RAD US NECK/THYROID 10/13/2010 8:54 EST documented in this encounter Results * RAD US NECK/THYROID (10/13/2010 8:54 EST) Anatomical Region Laterality Modality Other 10/13/2010 8:54 EST 10/13/2010 10:53 EST Narrative 10/13/2010 10:53 EST US NECK/THYROID ??Oct 13, 2010 08:54:00 AM Signs and Symptoms/Comments: ??682.0-CELLULITIS AND ABSCESS OF FACE-I9 left cheeck abscess still quite firm and tender ?undrained collection in left cheeck Comparison: CT face on 09/20/2010. Ultrasound neck/thyroid on 09/19/2010. Technique: Grayscale, color Doppler, and cine ultrasound images of the left cheek were performed in the region of the patient's previously described abscess. Findings: Scans of the patient's left cheek demonstrate heterogeneous subcutaneous soft tissues but no significant collect or abnormal hypervascularity is identified to suggest residual abscess. Per the executive account manager, the patient was nontender on sonopalpation. Impression: Residual subcutaneous soft tissue edema of the left cheek without evidence of a significant persistent fluid collection. I have personally reviewed the images and the above interpretation and agree with the findings. Procedure Note Thong Hennessy MD - 10/13/2010 US NECK/THYROID Oct 13, 2010 08:54:00 AM Signs and Symptoms/Comments: 682.0-CELLULITIS AND ABSCESS OF FACE-I9 left cheeck abscess still quite firm and tender ?undrained collection in left cheeck Comparison: CT face on 09/20/2010. Ultrasound neck/thyroid on 09/19/2010. Technique: Grayscale, color Doppler, and cine ultrasound images of the left cheek were performed in the region of the patient's previously described abscess. Findings: Scans of the patient's left cheek demonstrate heterogeneous subcutaneous soft tissues but no significant collect or abnormal hypervascularity is identified to suggest residual abscess. Per the executive account manager, the patient was nontender on sonopalpation. Impression: Residual subcutaneous soft tissue edema of the left cheek without evidence of a significant persistent fluid collection. I have personally reviewed the images and the above interpretation and agree with the findings. Leonor Duque MD IM US ORDERABLE S documented in this encounter Visit Diagnoses Diagnosis Cellulitis and abscess of face- Primary Screening for osteoporosis- Primary Special screening [...] 6 hours as needed for Pain. Reorder 09/30/2010 10/06/2010 sulfamethoxazole-trimeth oprim (BACTRIM DS) 800-160 mg per tablet Take 1 Tab by mouth every 12 hours for 10 days. Therapy completed 09/30/2010 10/06/2010 documented as of this encounter Care Teams Corporate Development Manager Relationship Specialty Start Date End Date Jean Munoz MD [address] [place] [phone] PCP - General 12/31/08 Manny Rizzo MD [address] [place] [phone] 04/20/10 documented as of this encounter
--- OUTSIDE RECORDS SUMMARY | 2024-06-10 07:34 | XMS_ITS | Encounter Summary ---
Author Organization [facility] Address [address] [place] [address] Care Team Providers Care Pbx Manager Name Role Phone Jean Munoz MD Primary Care Provider Manny Rizzo MD Unavailable Reason for Visit * Reason Comments Annual Exam no Pap needed Encounter Details Date Type Department Care Team (Late st Contact Info) Description 11/13/2010 9:15 EST [facility] [address] [place] [address] Jean Munoz MD [address] [place] [phone] Routine general medical examination at a health care facility (Primary Dx); Abscess of face; Chronic back pain; Irritable bowel syndrome; Asthma; Cervicalgia; GERD (gastroesophageal reflux disease); Restless leg syndrome; Migraine; Insomnia; Fatty liver; Screening for hyperlipidemia; Fatigue Social [...] Sign Reading Time Taken Comments Blood Pressure 114/66 11/13/201052 EST Pulse 70 11/13/2010 0952 EST Temperature 36.4 ??C (97.6 ??F) 11/13/2010 0952 EST Respiratory Rate - - Oxygen Saturation - - Inhaled Oxygen Concentration - - Weight 91.6 kg (202 lb) 11/13/2010951 EST Height 162.6 cm (5' 4) 11/13/2010 0952 EST Body Mass Index 34.67 11/13/2010 09 EST documented in this encounter Functional Status Cognitive Status Response Date of Assessm ent Because of a physical, menta l, or emotional condition, do you have serious difficulty concentrating, remembering, or making decisions? (5 years old or older) Yes 09/19/2010 documented as of this encounter Patient Instructions * Patient Instructions* Jean Munoz MD - 11/13/2010 10:19 EST Please call [phone] to schedule a screening mammogram Please call [phone] to contact Patient and Family Advocacy documented in this encounter Ordered Prescriptions Prescription Sig Dispensed Refills Start Date End Da te amitriptyline (ELAVIL) 10 mg tabletIndications:Chroni c back pain Take 1 Tab by mouth at bedtime as needed for Sleep. 30 Tab 2 11/13/2010 12/11/2010 predniSONE (DELTASONE) 20 mg tabletIndications:Asthma Take 2 Tabs by mouth daily for 5 days. 10 Tab 3 11/13/2010 10/15/2011 zolpidem (AMBIEN) 10 mg tabletIndications:Insomn ia Take 1 Tab by mouth at bedtime as needed for Sleep. 30 Each 5 11/13/2010 04/20/2011 sumatriptan (IMITREX) 50 mg tabletIndications:Migrai ne Take 1 Tab by mouth once as needed for Migraine for 1 dose. Gets 9 tabs a month and uses them all 9 Tab 3 11/13/2010 02/18/2011 sertraline (ZOLOFT) 100 mg tablet Take 1.5 Tabs by mouth daily. 135 Tab 3 11/13/2010 12/09/2011 ropinirole (REQUIP) 2 mg tabletIndications:Restle ss leg syndrome Take 1 Tab by mouth at bedtime. 90 Each 3 11/13/2010 11/13/2011 promethazine (PHENERGAN) 25 mg tabletIndications:GERD (gastroesophageal reflux disease) Take 1 Tab by mouth every 6 hours as needed for Nausea. 45 Each 3 11/13/2010 04/11/2012 pregabalin (LYRICA) 150 mg capsuleIndications:Chron ic back pain,Cervicalgia Take 1 Cap by mouth 3 times daily. 270 Cap 3 11/13/2010 05/19/2011 mometasone (NASONEX) 50 mcg/Actuation nasal spray 2 Sprays by Nasal route daily. 3 Inhaler 3 11/13/2010 12/09/2011 levalbuterol (XOPENEX HFA) 45 mcg/Actuation inhaler Inhale 1-2 Puffs as directed every 4 hours as needed for Wheezing. 3 Inhaler 3 11/13/2010 11/23/2011 fluticasone-salmeterol (ADVAIR DISKUS) 500-50 mcg/dose diskus inhaler Inhale 1 Puff as directed 2 times daily. 3 Each 3 11/13/2010 11/13/2011 documented in this encounter Progress Notes * Jean Munoz MD - 11/13/2010 1116 EST S: While here for PE we addressed several concerns See encounter summary Recent face infection hospitalized, due to see ENT soon Chronic back pain - still a problem, saw Pain Clinic, had injection, did not get rx for pain med Told that she should consider amitriptyline Also alternating constipation/diarrhea x 6 months +abdominal pain, variable location Better with defecation Also weight gain in 2 months 20lb No change diet, no new meds Walks every day Active problem list, past medical history, past surgical history, medications, allergies, family history and social history were reviewed. O: Exam see PE note A/P: Abscess of face F/U ENT as scheduled Chronic back pain Reviewed recent Pain Clinic recommendations Continue pregabalin (LYRICA) 150 mg capsule; Take 1 Cap by mouth 3 times daily. Start amitriptyline (ELAVIL) 10 mg tablet; Take 1 Tab by mouth at bedtime as needed for Sleep. I do not think she is a good candidate for narcotics with history of substance abuse She demanded prescription for something to help my pain, I declined to give her a prescription for narcotics, and reviewed plan as above She was dissatisfied with this and threatened to buy them off the street or hurt herself if I did not give her prescription Contact for Patient and Family Advocacy given Irritable bowel syndrome Discussed diagnosis and management options Recommend fiber supplement such as Metamucil Asthma Current exacerbation Already on prednisone course New script given predniSONE (DELTASONE) 20 mg tablet; Take 2 Tabs by mouth daily for 5 days. fluticasone-salmeterol (ADVAIR DISKUS) 500-50 mcg/dose diskus inhaler; Inhale 1 Puff as directed 2 times daily. levalbuterol (XOPENEX HFA) 45 mcg/Actuation inhaler; Inhale 1-2 Puffs as directed every 4 hours as needed for Wheezing. Cervicalgia Continue pregabalin (LYRICA) 150 mg capsule; Take 1 Cap by mouth 3 times daily. Gerd (gastroesophageal reflux disease) With intermittent nausea promethazine (PHENERGAN) 25 mg tablet; Take 1 Tab by mouth every 6 hours as needed for Nausea. Restless leg syndrome ropinirole (REQUIP) 2 mg tablet; Take 1 Tab by mouth at bedtime. Hemagram Migraine sumatriptan (IMITREX) 50 mg tablet; Take 1 Tab by mouth once as needed for Migraine for 1 dose. Gets 9 tabs a month and uses them all Insomnia zolpidem (AMBIEN) 10 mg tablet; Take 1 Tab by mouth at bedtime as needed for Sleep. Fatty liver Comprehensive Metabolic Panel (CMP) Screening for hyperlipidemia Lipid Profile (Includes Cholesterol, Triglycerides, HDL, LDL) Fatigue with weight gain Thyroid cascade Recheck one month * Jean Munoz MD - 11/13/2010 1010 EST Subjective: Patient ID: Liset Viera is an 49 y.o. female. Chief Complaint Patient presents with ??? Annual Exam no Pap needed HPI See Health Care Questionnaire for details and ROS. Patient Active Problem List Diagnoses Code ??? [...] [facility]10 [facility] ??? Cyst incision and drainage 09/17/10 left cheek ??? Fine needle aspiration 09/19/10 left cheek Current outpatient prescriptions ordered prior to encounter Medication Sig Dispense Refill ??? sertraline (ZOLOFT) 100 mg tablet Take 1.5 Tabs by mouth daily. 135 Tab 3 ??? zolpidem (AMBIEN) 10 mg tablet Take 1 Tab by mouth at bedtime as needed for Sleep. 30 Each 5 ??? baclofen (LIORESAL) 10 mg tablet Take 0.5-1 Tabs by mouth 3 times daily as needed. 90 Tab 3 ??? methylphenidate (RITALIN) 10 [...] Maternal Grandmother ??? Cancer Paternal Grandmother leukemia History Social History ??? Marital Status: Legally Spouse Name: N/A Number of Children: N/A ??? Years of Education: N/A Occupational History ??? Not on file. Social History Main Topics ??? Smoking status: Former Smoker -- 0.5 packs/day for 30 years Types: Cigarettes Quit date: 10/14/2010 ??? Smokeless tobacco: Never Used ??? Alcohol Use: No rarely ??? Drug Use: Yes Special: Marijuana ??? Sexually Active: Not Currently Other Topics Concern ??? Not on file Social History Narrative from [place] (ETOH)Son Alexi and Daughter JenniferCurrently [facility] See HPI Objective: BP 114/66 Pulse 70 Temp(Src) 36.4 ??C (97.6 ??F) (Oral) Ht 162.6 cm (64) Wt 91.627 kg (202lb) BMI 34.67 kg/m2 Physical Exam Nursing note and vitals reviewed. Constitutional: She appears well-developed and well-nourished. No distress. obese HENT: Right Ear: Tympanic membrane and external [...] distension and no mass. There is no organomegaly. No tenderness. Genitourinary: Breast exam without masses Musculoskeletal: She exhibits no edema. Lymphadenopathy: She has no cervical adenopathy. She has no axillary adenopathy. Right: No supraclavicular adenopathy present. Left: No supraclavicular adenopathy present. Neurological: No cranial nerve deficit. Skin: Skin is warm, dry and intact. No rash noted. Cyst left cheek Psychiatric: She has a normal mood and affect. Assessment: Plan: Liset was seen today for annual exam. Diagnoses and associated orders for this visit: Routine general medical examination at a health care facility See separate note for acute issues Other Orders - mometasone (NASONEX) 50 mcg/Actuation nasal spray; 2 Sprays by Nasal route daily. - sertraline (ZOLOFT) 100 mg tablet; Take 1.5 Tabs by mouth daily. Lipid screening Diabetes screening Colonoscopy UTD Immunizations UTD Mammogram call [phone] to schedule PAPdeferred Bone density age 63 documented in this encounter Miscellaneous Notes * Assessment & Plan Note - Jean Mnuoz MD - 11/13/2010 1017 EST Associated Problem(s): Narcolepsy Had F/U 10/29, still on Ritalin * Assessment & Plan Note - Jean Munoz MD - 11/13/2010 1016 EST Associated Problem(s): Migraine Not too much trouble * Assessment & Plan Note - Jean Munoz MD - 11/13/2010 1016 EST Associated Problem(s): Insomnia Insomnia still a problem, ?related to pain * Assessment & Plan Note - Jean Munoz MD - 11/13/2010 1016 EST Associated Problem(s): Gastroesophageal reflux disease Out of meds * Assessment & Plan Note - Jean Munoz MD - 11/13/2010 1015 EST Associated Problem(s): Chronic back pain Dr Rogers - Had injections yesterday, ?amitriptyline 10 mg * Assessment & Plan Note - Jean Munoz MD - 11/13/2010 1013 EST Associated Problem(s): Cervicalgia Not too bad * Assessment & Plan Note - Jean Munoz MD - 11/13/2010 1012 EST Associated Problem(s): Asthma (Resolved 03/03/2017) Still using Advair, using albuterol 3 times day On Prednisone,2 days left * Assessment & Plan Note - Jean Munoz MD - 11/13/2010 1012 EST Associated Problem(s): Allergic rhinitis (Deleted) Doing well documented in this encounter Plan of Treatment Upcoming Encounters Date Type Department Care Team (Late st Contact Info) Description 06/29/2024 14:15 EDT Office Visit [address] [address] Jean Munoz MD [address] [place] [phone] documented as of this encounter Results * THYROID CASCADE (12/18/2010 13:24 EDT) TSH 1.66 0.35 - 5.00 uIU/ml [facility] Comment: ??TSH cascade is not recommended for patients in which pituitary or hypothalamic disorders are suspected. Blood specimen (specimen) 12/18/2010 13:24 EDT 12/18/2010 13:27 EDT Jean Munoz MD CHEMISTRY & BLO OD GAS ORDERABLES Performing Organization Address [facility] Co de Phone Number [facility] [address] [place] [address] * (ABNORMAL) LIPID PROFILE (INCLUDES CHOLESTEROL, TRIGLYCERIDES, HDL, LDL) (12/18/2010 13:24 EDT) Cholesterol 241 mg/dl [facility] Comment:Desirable:<200 Borde rline High:200-239 High:>mc=246 Triglycerides 203(H) 35 - 160 mg/dl [facility] HDL 57 mg/dl [facility] Comment:Low:<40 High(Desirab le):>or=60 LDL, Calculated 143 mg/dl [facility] Comment: Optimal:<100 Above optimal:100-129 Borderline High:130-159 High:160-189 Very High:>fm=357 Chol/HDL Ratio 4.2 [facility] Fasting? Yes [facility] Blood specimen (specimen) 12/18/2010 13:24 EDT 12/18/2010 13:27 EDT Jean Munoz MD CHEMISTRY & BLO OD GAS ORDERABLES Performing Organization Address [facility] de Phone Number [facility] [address] [place] [address] * COMPREHENSIVE METABOLIC PANEL (CMP) (12/18/2010 13:24 EDT) Potassium 4.4 3.5 - 5.0 mEq/L [facility] Sodium 144 136 - 145 mEq/L [facility] Chloride 105 96 - 110 mEq/L [facility] CO2 26 24 - 32 mEq/L [facility] Total Alkaline Phosphatase 87 38 - 126 U/L [facility] Bilirubin, Total <0.5 0.2 - 1.3 mg/dl [facility] AST 16 15 - 46 U/L [facility] ALT 24 9 - 52 U/L [facility] Albumin 4.3 3.4 - 4.9 g/dl [facility] Total Protein 7.3 6.5 - 8.3 g/dl [facility] Creatinine 0.73 0.7 - 1.5 mg/dl [facility] GFR, Calculated >60 ml/min/1.7 3m2 [facility] BUN 13 10 - 26 mg/dl [facility] Calcium 9.1 8.5 - 10.5 mg/dl [facility] Calculated Calcium 9.2 8.5 - 10.5 mg/dl [facility] Glucose, Serum 85 70 - 100 mg/dl [facility] Fasting? Yes [facility] Blood specimen (specimen) 12/18/2010 13:24 EDT 12/18/2010 13:27 EDT Jean Munoz MD CHEMISTRY & BLO OD GAS ORDERABLES Performing Organization Address City/State/[facility] Co de Phone Number [facility] [address] [place] [address] * HEMAGRAM (12/18/2010 13:24 EDT) WBC 7.39 4.0 - 12.4 K/cmm [facility] RBC 4.23 3.86 - 5.04 M/cmm [facility] Hemoglobin 14.0 11.6 - 15.2 gm/dl [facility] HCT 40.7 34.9 - 44.4 % [facility] MCV 96 81 - 98 fl [facility] MCH 33.0 26.7 - 33.3 pg [facility] MCHC 34.3 32.1 - 35.9 gm/dl [facility] PLT 304 141 - 320 K/cmm [facility] RDW-CV 14.6 11.7 - 14.6 % [facility] Blood specimen (specimen) 12/18/2010 13:24 EDT 12/18/2010 13:27 EDT Jean Munoz MD HEMATOLOGY & PF 4 ORDERABLES Performing Organization Address City/State/[facility] Co de Phone Number [facility] [address] [place] [address] documented in this encounter Visit Diagnoses Diagnosis Routine general medical examination at a health care facility- Primary Abscess of face Cellulitis and abscess of face Chronic back pain Backache, unspecified Irritable bowel syndrome Asthma Unspecified asthma Cervicalgia GERD (gastroesophageal reflux disease) Esophageal reflux Restless leg syndrome Restless legs syndrome (RLS) Migraine Migraine, unspecified, without mention of intractable migraine without mention of status migrainosus Insomnia Insomnia, unspecified Fatty liver Other chronic nonalcoholic liver [...] End Da te baclofen (LIORESAL) 10 mg tabletIndications:Lumbos acral spondylosis without myelopathy Take 0.5 Tabs by mouth 2 times daily as needed (spasm). Duplicate Therapy 10/02/2010 11/13/2010 predniSONE (DELTASONE) 5 mg tablet Take 20 mg/kg by mouth as needed. Duplicate Therapy 09/17/2010 11/13/2010 fluticasone-salmeterol (ADVAIR DISKUS) 500-50 mcg/Dose diskus inhaler Inhale 1 Puff as directed 2 times daily. Reorder 05/08/2010 11/13/2010 levalbuterol (XOPENEX HFA) 45 mcg/Actuation inhaler Inhale 1-2 Puffs as directed every 4 hours as needed for Wheezing. Reorder 05/08/2010 11/13/2010 mometasone (NASONEX) 50 mcg/Actuation nasal spray 2 Sprays by Nasal route daily. Reorder 12/12/2009 11/13/2010 pregabalin (LYRICA) 150 mg capsuleIndications:Chron ic back pain,Cervicalgia Take 1 Cap by mouth 3 times daily. Reorder 10/30/2010 11/13/2010 promethazine (PHENERGAN) 25 mg tabletIndications:GERD (gastroesophageal reflux disease) Take 1 Tab by mouth every 6 hours as needed for Nausea. Reorder 09/30/2010 11/13/2010 ropinirole (REQUIP) 2 mg tabletIndications:Restle ss leg syndrome Take 1 Tab by mouth at bedtime. Reorder 08/13/2010 11/13/2010 sertraline (ZOLOFT) 100 mg tablet Take 1.5 Tabs by mouth daily. Reorder 07/02/2010 11/13/2010 sumatriptan (IMITREX) 50 mg tabletIndications:Migrai ne Take 1 Tab by mouth once as needed for Migraine for 1 dose. Gets 9 tabs a month and uses them all Reorder 08/11/2010 11/13/2010 zolpidem (AMBIEN) 10 mg tabletIndications:Insomn ia Take 1 Tab by mouth at bedtime as needed for Sleep. Reorder 08/11/2010 11/13/2010 predniSONE (DELTASONE) 20 mg tabletIndications:Asthma TAKE 2 TABLETS BY MOUTH DAILY FOR 5 DAYS Reorder 10/29/2010 11/13/2010 documented as of this encounter Care Teams Pbx Manager Relationship Specialty Start Date End Date Jean Munoz MD [address] [place] [phone] PCP - General 12/31/08 [place] [address] [place] [phone] 04/20/10 documented as of this encounter
--- OUTSIDE RECORDS SUMMARY | 2024-06-10 07:34 | XMS_ITS | Encounter Summary ---
Author Organization [facility] Address [address] [place] [address] Care Team Providers Care Welding Robot Operator Name Role Phone Jean Munoz MD Primary Care Provider Manny Rizzo MD Unavailable Reason for Visit * Reason Comments Other Encounter Details Date Type Department Care Team (Late st Contact Info) Description 10/29/[address] [address] Jean Munoz MD [address] [place] [phone] Other Social History Tobacco Use Types [...] Cap by mouth 3 times daily. 90 Cap 0 10/30/2010 11/13/2010 predniSONE (DELTASONE) 20 mg tabletIndications:Asthma TAKE 2 TABLETS BY MOUTH DAILY FOR 5 DAYS 10 Each 0 10/29/2010 11/13/2010 documented in this encounter Miscellaneous Notes * Telephone Encounter - Feli Preston - 10/30/2010 1631 EST Medication phoned into pharmacy. * Telephone Encounter - Jean Munoz MD - 10/30/2010 1609 EST Scripts done, please call in Lyrica to pharmacy * Telephone Encounter - Deidre Dunbar - 10/30/2010 1533 EST Pt has PE2 scheduled for 11/13/10. documented in this encounter Plan of Treatment Upcoming Encounters Date Type Department Care Team (Late st Contact Info) Description 06/29/2024 14:15 EDT Office Visit [facility] Family Medicine [facility] [address] [place] [address] Jean Munoz MD [address] [place] [phone] documented as of this encounter Visit Diagnoses Diagnosis Chronic back pain Backache, unspecified Cervicalgia Asthma Unspecified asthma Screening for osteoporosis- Primary [...] te predniSONE (DELTASONE) 20 mg tablet Take 2 Tabs by mouth daily for 5 days. Reorder 05/08/2010 10/29/2010 pregabalin (LYRICA) 150 mg capsuleIndications:Chroni c back pain,Cervicalgia Take 1 Cap by mouth 3 times daily. Reorder 04/21/2010 10/30/2010 documented as of this encounter Care Teams Welding Robot Operator Relationship Specialty Start Date End Date Jean Munoz MD [address] [place] [phone] PCP - General 12/31/08 [place] [address] [place] [phone] 04/20/10 documented as of this encounter
--- OUTSIDE RECORDS SUMMARY | 2024-06-10 07:35 | XMS_ITS | Encounter Summary ---
Author Organization [facility] Address [address] [place] [address] Care Team Providers Care Training Officer Name Role Phone Jean Munoz MD Primary Care Provider Encounter Details Date Type Department Care Team (Late st Contact Info) Description 04/10/2010 Abstract [facility] Cardiology - [address] [place] [address] Jean Munoz MD [address] [place] [phone] Social History Tobacco Use Types [...] Yes 11/21/2009 documented as of this encounter Plan of Treatment Upcoming Encounters Date Type Department Care Team (Late st Contact Info) Description 06/29/2024 14:15 EDT [facility] [address] [place] [address] Jean Munoz MD [address] [place] [phone] documented as of this encounter Visit Diagnoses Not on filedocumented in this encounter Care Teams Training Officer Relationship Specialty Start Date End Date Jean Munoz MD [address] [place] [phone] PCP - General 12/31/08 documented as of this encounter
--- OUTSIDE RECORDS SUMMARY | 2024-06-10 07:35 | XMS_ITS | Encounter Summary ---
Author Organization [facility] Address [address] [place] [address] Care Team Providers Care Emergency Room Nurse Name Role Phone Jean Munoz MD Primary Care Provider Manny Rizzo MD Unavailable Encounter Details Date Type Department Care Team (Late st Contact Info) Description 05/07/2010 Abstract Used for ABSTRACTING Data [phone] Jean Munoz MD [address] [place] [phone] Social History Tobacco Use Types Packs/Day [...] [facility] [address] [place] [address] Jean Munoz MD [address] [place] [phone] documented as of this encounter Visit Diagnoses Not on filedocumented in this encounter Care Teams Emergency Room Nurse Relationship Specialty Start Date End Date Jean Munoz MD [address] [place] [phone] PCP - General 12/31/08 Manny Rizzo MD [address] [place] [phone] 04/20/10 documented as of this encounter
--- OUTSIDE RECORDS SUMMARY | 2024-06-10 07:35 | XMS_ITS | Encounter Summary ---
Author Organization [facility] Address [address] [place] [address] Care Team Providers Care Manager Adobe Name Role Phone Jean Munoz MD Primary Care Provider Manny Rizzo MD Unavailable Reason for Visit * Reason Onset Date Comments Medications Refill 06/04/2010 baclofen pres cription called in to [facility] in [place] and left message on pt's cell phone. Encounter Details Date Type Department Care Team (Late st Contact Info) Description 06/04/2010 Refill [facility] Interventional Pain [address] [place] [address] Sunita Freeman RN Medications Refill (baclofen prescription called in to [facility] in [place] and left message on pt's cell phone.) Social History Tobacco Use Types Packs/Day Years [...] encounter Miscellaneous Notes * Telephone Encounter - Sunita Freeman, RN - 06/04/2010 1642 EDT Baclofen persciption called to pharmacy and pt aware. documented in this encounter Plan of Treatment Upcoming Encounters Date Type Department Care Team (Late st Contact Info) Description 06/29/2024 14:15 EDT Office Visit [facility] [address] [place] [address] Jean Munoz MD [address] [place] [phone] documented as of this encounter Visit Diagnoses Not on filedocumented in this encounter Care Teams Manager Adobe Relationship Specialty Start Date End Date Jean Munoz MD [address] [place] [phone] PCP - General 12/31/08 Manny Rizzo MD [address] [place] [phone] 04/20/10 documented as of this encounter
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
--- OUTSIDE RECORDS SUMMARY | 2024-06-10 07:35 | XMS_ITS | Encounter Summary ---
Author Organization [facility] Address [address] [place] [address] Care Team Providers Care Manager Project Name Role Phone Jean Munoz MD Primary Care Provider Reason for Visit * Reason Onset Date Comments Prior Auth, Medication 03/28/2010 FEXOFENAD INE 180 MG Encounter Details Date Type Department Care Team (Late st Contact Info) Description 03/28/2010 Telephone [facility] [address] [place] [address] Jean Munoz MD [address] [place] [phone] Prior Auth, Medication (FEXOFENADINE 180 MG) Social History Tobacco Use Types Packs/Day Years [...] encounter Miscellaneous Notes * Telephone Encounter - Sho Erazo - 03/28/2010 1601 EDT I tried to reach the patient, no answer on her home number, no answering machine. * Telephone Encounter - Sho Erazo - 03/28/2010 1557 EDT We received a fax from the pharmacy that she needed a prior auth for her Fexofenadine 180 mg daily.I called [employer] at [phone]. They approved Fexofenadine 180 mg 1 tab daily 30 tabs in 30 days, approved for 1 year. This will beeffective in approximately 1 hour, 4:55pm. Pharmacy and patient were notified. documented in this encounter Plan of Treatment Upcoming Encounters Date Type Department Care Team (Late st Contact Info) Description 06/29/2024 14:[address] [facility] Medicine [facility] [address] [place] [address] Jean Munoz MD [address] [place] [phone] documented as of this encounter Visit Diagnoses Not on filedocumented in this encounter Care Teams Manager Project Relationship Specialty Start Date End Date Jean Munoz MD [address] [place] [phone] PCP - General 12/31/08 documented as of this encounter
--- OUTSIDE RECORDS SUMMARY | 2024-06-10 07:35 | XMS_ITS | Encounter Summary ---
Author Organization [facility] Address [address] [place] [address] Care Team Providers Care Transformer Stock Clerk Name Role Phone Jean Munoz MD Primary Care Provider Encounter Details Date Type Department Care Team (Latest Contact Info) Description 01/28/2010 8:50 EDT - 01/28/2010 23:59 EDT Hospital Encounter [facility] Neurology - [address] [phone] Mik Caban MD [address] [place] [phone] Discharge Disposition: Home or Self Care Social [...] Yes 11/21/2009 documented as of this encounter Medications at [...] Code Departure Means Destination Home or Self [facility] documented in this encounter Plan of Treatment Upcoming Encounters Date Type Department Care Team (Late st Contact Info) Description 06/29/2024 14:15 EDT Office Visit [facility] [address] [place] [address] Jean Munoz MD [address] [place] [phone] documented as of this encounter Visit Diagnoses Not on filedocumented in this encounter Care Teams Transformer Stock Clerk Relationship Specialty Start Date End Date Jean Munoz MD [address] [place] [phone] PCP - General 12/31/08 documented as of this encounter
--- OUTSIDE RECORDS SUMMARY | 2024-06-10 07:35 | XMS_ITS | Encounter Summary ---
Author Organization [facility] Address [address] [place] [address] Care Team Providers Care Dock Associate Name Role Phone Jean Munoz MD Primary Care Provider Manny Rizzo MD Unavailable Reason for Visit * Reason Comments Follow-up F/u appt. with Pain Clinic Encounter Details Date Type Department Care Team (Late st Contact Info) Description 08/11/2010 16:00 EST Office Visit [facility] [address] [place] [address] Jean Munoz MD [address] [place] [phone] Chronic back pain (Primary Dx); Asthma; Tobacco abuse; GERD (gastroesophageal reflux disease); Restless leg syndrome; Migraine; Insomnia; Need for immunization against influenza Discharge Disposition: Auto Discharge Social History Tobacco [...] Sign Reading Time Taken Comments Blood Pressure 104/62 08/11/2010 1628 EST Pulse 76 08/11/2010 1628 EST Temperature 36.7 ??C (98 ??F) 08/11/2010 1628 EST Respiratory Rate - - Oxygen Saturation - - Inhaled Oxygen Concentration - - Weight 77.1 kg (170 lb) 08/11/2010 1628 EST Height - - Body Mass Index 29.18 07/14/2010 1024 EDT documented in this encounter Functional Status Cognitive Status Response Date of Assessm ent Because of a physical, menta l, or emotional condition, do you have serious difficulty concentrating, remembering, or making decisions? (5 years old or older) Yes 11/21/2009 documented as of this encounter Ordered Prescriptions Prescription Sig Dispensed Refills Start Date End Da te varenicline (CHANTIX) 1 mg tabletIndications:Tobacco abuse Take 1 Tab by mouth 2 times daily. 60 Each 2 08/11/2010 01/21/2011 zolpidem (AMBIEN) 10 mg tabletIndications:Insomni a Take 1 Tab by mouth at bedtime as needed for Sleep. 30 Each 2 08/11/2010 11/13/2010 promethazine (PHENERGAN) 25 mg tabletIndications:GERD (gastroesophageal reflux disease) Take 1 Tab by mouth every 6 hours as needed for Nausea. 45 Each 0 08/11/2010 09/30/2010 sumatriptan (IMITREX) 50 mg tabletIndications:Migrain e Take 1 Tab by mouth once as needed for Migraine for 1 dose. Gets 9 tabs a month and uses them all 9 Tab 2 08/11/2010 11/13/2010 ropinirole (REQUIP) 1 mg tabletIndications:Restles s leg syndrome Take 2 Tabs by mouth at bedtime. 90 Each 0 08/11/2010 08/13/2010 documented in this encounter Discharge Disposition Disposition Code Departure Means Destination Auto Discharge documented in this encounter Progress Notes * Jean Munoz MD - 08/11/2010 1636 EST Subjective: Patient ID: Liset Viera is an 49 y.o. female. Chief Complaint Patient presents with ??? Follow-up F/u appt. with Pain Clinic HPI see encounter summary Chronic back pain Had epidural injection 07/14/10 Patient states did not it help Still uncomfortable Patient Active Problem List Diagnoses Code ??? [...] ??? Arthritis 716.90R ??? Cervical spondylosis 721.0D Past Medical History Diagnosis Date ??? UTI [...] 11/06/09 ??? Laceration 12/26/09 ??? Dizziness 12/26/09 Current outpatient prescriptions ordered prior to encounter Medication Sig Dispense Refill ??? zolpidem (AMBIEN) 10 mg tablet Take 1 Tab by mouth at bedtime as needed for Sleep. 30 Each 2 ??? baclofen (LIORESAL) 10 mg [...] by Nasal route daily. 3 Inhaler 3 Allergies Allergen Reactions ??? Toradol (Ketorolac Tromethamine) Hives ??? Motrin (Ibuprofen) Itching Social History Substance Use Topics ??? Tobacco Use: Yes -- 0.5 packs/day for 30 years quit 10/21, Rx verinicline x3 months, smoking again after ??? Alcohol Use: Yes rarely ROS - See HPI Objective: BP 104/62 Pulse 76 Temp(Src) 36.7 ??C (98 ??F) (Oral) Wt 77.111 kg (170 lb) Physical Exam back exam deferred Assessment: Plan: Liset was seen today for follow-up. Diagnoses and associated orders for this visit: Chronic back pain - Recommend contact pain clinic for follow up - No narcotics Asthma - Using rescue inhaler frequently, will focus on smoking cessation Tobacco abuse - varenicline (CHANTIX) 1 mg tablet; Take 1 Tab by mouth 2 times daily. Gerd (gastroesophageal reflux disease) - promethazine (PHENERGAN) 25 mg tablet; Take 1 Tab by mouth every 6 hours as needed for Nausea. Restless leg syndrome - ropinirole (REQUIP) 1 mg tablet; Take 2 Tabs by mouth at bedtime. Migraine - sumatriptan (IMITREX) 50 mg tablet; Take 1 Tab by mouth once as needed for Migraine for 1 dose. Gets 9 tabs a month and uses them all Insomnia - zolpidem (AMBIEN) 10 mg tablet; Take 1 Tab by mouth at bedtime as needed for Sleep. Need for immunization against influenza - Flu vaccine greater than or equal to 3yo split IM Other Orders - Cancel: fluticasone-salmeterol (ADVAIR DISKUS) 500-50 mcg/dose diskus inhaler; Inhale 1 Puff as directed 2 times daily. - Cancel: levalbuterol (XOPENEX HFA) 45 mcg/Actuation inhaler; Inhale 1-2 Puffs as directed every 4hours as needed for Wheezing. - Cancel: mometasone (NASONEX) 50 mcg/Actuation nasal spray; 2 Sprays by Nasal route daily. - Cancel: albuterol (PROVENTIL, VENTOLIN) 90 mcg/Actuation inhaler; Inhale 2 Puffs as directed every 4 hours. Recheck 3 months for PE documented in this encounter Miscellaneous Notes * Assessment & Plan Note - Jean Munoz MD - 08/11/2010 6905 EST Associated Problem(s): Restless legs syndrome Patient states taking Requipt every night, last refill #30 no refills in November * Assessment & Plan Note - Jean Munoz MD - 08/11/2010 1647 EST Associated Problem(s): Narcolepsy Has appointment in Oct for F/U with Dr Caban, still taking Ritalin * Assessment & Plan Note - Jean Munoz MD - 08/11/2010 1646 EST Associated Problem(s): Migraine havent been bad lately, every 2 weeks * Assessment & Plan Note - Jean Munoz MD - 08/11/2010 1646 EST Associated Problem(s): Insomnia hard to sleep because of sciatic nerve * Assessment & Plan Note - Jean Munoz MD - 08/11/2010 1644 EST Associated Problem(s): Gastroesophageal reflux disease a little bit, not as much as before, takes Prilosec 1 tab daily * Assessment & Plan Note - Jean Munoz MD - 08/11/2010 1644 EST Associated Problem(s): Tobacco dependence in remission Not very much 0.5 ppd , statse tried Wellbutrin in past did not help, did well with Chantix, stopped for about 6 months * Assessment & Plan Note - Jean Munoz MD - 08/11/2010 1641 EST Associated Problem(s): Asthma (Resolved 03/03/2017) States taking Advair daily, using Xopenex 3-4x/wk, documented in this encounter Plan of Treatment Upcoming Encounters Date Type Department Care Team (Late st Contact Info) Description 06/29/2024 14:15 EDT Office Visit [facility] [address] [place] [address] Jean Munoz MD [address] [place] [phone] documented as of this encounter Visit Diagnoses Diagnosis Chronic back pain- Primary Backache, unspecified Asthma Unspecified asthma Tobacco abuse Tobacco use disorder GERD (gastroesophageal reflux disease) Esophageal reflux Restless leg syndrome Restless legs syndrome (RLS) Migraine Migraine, unspecified, without mention of intractable migraine without mention of status migrainosus Insomnia Insomnia, unspecified Need for immunization against influenza Need for prophylactic vaccination and inoculation against [...] Discontinue Reason Start Date End Da te amoxicillin (AMOXIL) 875 mg tablet Take 1 Tab by mouth 2 times daily. 06/25/2010 08/11/2010 atenolol (TENORMIN) 25 mg tablet Take 25 mg by mouth at bedtime. 05/29/2010 08/11/2010 diazepam (VALIUM) 5 mg tablet Take 1 Tab by mouth every 6 hours as needed for Anxiety. 01/08/2010 08/11/2010 DIAZepam (VALIUM) 5 mg tablet Take 5 mg by mouth at bedtime. 05/29/2010 08/11/2010 fexofenadine (JUDITH) 180 mg tablet Take 1 Tab by mouth daily. 12/12/2009 08/11/2010 hydrocodone-acetaminop hen (LORTAB;VICODIN) 5-500 mg per tabletIndications:[employer] [address] majo back pain,Cervicalgia Take 1 Tab by mouth 4 times daily. 01/20/2010 08/11/2010 hydrocodone-acetaminop hen (VICODIN) 5-500 mg per tablet Take 6-8 Tabs by mouth daily. 05/29/2010 08/11/2010 tizanidine (ZANAFLEX) 4 mg tabletIndications:[employer] [address] majo back pain,Cervicalgia Take 1 Tab by mouth every 6 hours as needed. 01/20/2010 08/11/2010 ALBUTEROL INHL Inhale 2 Puffs as directed 2 times daily as needed. Patient Stopped Taking 08/11/2010 ropinirole (REQUIP) 1 mg tablet Take 2 Tabs by mouth at bedtime. Reorder 11/29/2009 08/11/2010 sumatriptan (IMITREX) 50 mg tablet Take 50 mg by mouth once as needed for Migraine. Gets 9 tabs a month and uses them all Reorder 08/11/2010 promethazine (PHENERGAN) 25 mg tablet Take 1 Tab by mouth every 6 hours as needed for Nausea. Reorder 02/19/2010 08/11/2010 zolpidem (AMBIEN) 10 mg tabletIndications:Inso mnia Take 1 Tab by mouth at bedtime as needed for Sleep. Reorder 07/02/2010 08/11/2010 documented as of this encounter Orders Immunization/Injection Count Last Ordered Date First Ordered Date FLU VACCINE =>3YO SPLIT IM 1 08/11/2010 documented in this encounter Care Teams Dock Associate Relationship Specialty Start Date End Date Jean Munoz MD [address] [place] [phone] PCP - General 12/31/08 Manny Rizzo MD [address] [place] [phone] 04/20/10 documented as of this encounter
--- OUTSIDE RECORDS SUMMARY | 2024-06-10 07:35 | XMS_ITS | Encounter Summary ---
Author Organization [facility] Address [address] [place] [address] Care Team Providers Care Test Architect Name Role Phone Jean Munoz MD Primary Care Provider Reason for Visit * Reason Onset Date Comments Follow-up 01/22/2010 at ER now Encounter Details Date Type Department Care Team (Late st Contact Info) Description 01/22/[address] [phone] Caro Krueger RN [address] [place] [address] Follow-up (at ER now) Social History Tobacco Use Types Packs/Day Years [...] Telephone Encounter - Caro Krueger RN - 01/22/2010 1008 EDT See other telephone encounter dated 01/21/10 per he does not recommend use of marijuana for chronic pain. Called Jaime to let inform him; unable to leave message. Called Liset back at ER to inform her of instructions. * Telephone Encounter - Caro Krueger RN - 01/22/2010 1002 EDT Liset calling. She is in the Emergency Room for a burn. She smoked some pot to help her chronic pain. She lives in the homeless skilled nursing and cannot live there if she smokes pot. She would like to write a letter stating that smoking marijuana helps her chronic pain symptoms. This would allow her to stay in the skilled nursing; fax Curtis Sandoval [phone]. Phone [phone] may leave message with Curtis regarding this if necessary. She cannot return to the skilled nursing without the note, and cannot go back there until 645pm. documented in this encounter Plan of Treatment Upcoming Encounters Date Type Department Care Team (Late st Contact Info) Description 06/29/2024 14:15 EDT Office Visit [facility] [address] [place], [place] [phone] Jean Munoz MD [address] [place] [phone] documented as of this encounter Visit Diagnoses Not on filedocumented in this encounter Care Teams Test Architect Relationship Specialty Start Date End Date Jean Munoz MD [address] [place] [phone] PCP - General 12/31/08 documented as of this encounter
--- OUTSIDE RECORDS SUMMARY | 2024-06-10 07:35 | XMS_ITS | Encounter Summary ---
Author Organization [facility] Address [address] [place] [address] Care Team Providers Care Science Specialist Name Role Phone Jean Munoz MD Primary Care Provider Manny Rizzo MD Unavailable Reason for Visit * Reason Onset Date Comments Medications Refill 07/02/2010 Encounter Details Date Type Department Care Team (Late st Contact Info) Description 07/02/[address] [facility] [address] [place], [place] [phone] Jean Munoz MD [address] [place] [phone] Medications Refill Social History Tobacco [...] bedtime as needed for Sleep. 30 Each 0 07/02/2010 08/11/2010 sertraline (ZOLOFT) 100 mg tablet Take 1.5 Tabs by mouth daily. 45 Tab 5 07/02/2010 11/13/2010 documented in this encounter Miscellaneous Notes * Telephone Encounter - Eliza Rust - 07/03/2010 0914 EDT Called the prescription into the pharmacy. Called patient - left message on answering machine to let her know that scripts are done. * Telephone Encounter - Jean Munoz MD - 07/03/2010 0805 EDT Scripts done, please call in Ambien to pharmacy and notify patient * Telephone Encounter - Joceline Johnston RN - 07/02/2010 1750 EDT Is not taking celexa. D/c form med list. Would like the zoloft and ambien sent over to pharmacy. Tonight. Explained that more than likely will be tomorrow am and explained our policy of how it couldtake 2-3 days for refills to be sent to pharmacy.. And to call us when she sees she is getting low.Not when out. Pt states understanding and i said we would let her know as soon as they are sent to pharmacy. No barriers to learning,pt verbalizes understanding. * Telephone Encounter - Jean Munoz MD - 07/02/2010 1717 EDT Med list has both Celexa and Zoloft, please call patient to clarify taking one or the other (not both) Meds pended until this is addressed Has appointment pending 07/15 * Telephone Encounter - Lesly Mcmullen - 07/02/2010 0855 EDT Last ROV 6.9.10 documented in this encounter Plan of Treatment Upcoming Encounters Date Type Department Care Team (Late st Contact Info) Description 06/29/2024 14:15 EDT Office Visit [facility] [address] [place] [address] Jean Munoz MD [address] [place] [phone] documented as of this encounter [...] Discontinue Reason Start Date End Da te citalopram (CELEXA) 40 mg tablet Take 40 mg by mouth daily. Alternate therapy 07/02/2010 sertraline (ZOLOFT) 100 mg tablet Take 1.5 Tabs by mouth daily. Reorder 05/07/2010 07/02/2010 zolpidem (AMBIEN) 10 mg tabletIndications:Insomn ia Take 1 Tab by mouth at bedtime as needed for Sleep. Reorder 04/21/2010 07/02/2010 documented as of this encounter Care Teams Science Specialist Relationship Specialty Start Date End Date Jean Munoz MD [address] [place] [phone] PCP - General 12/31/08 Manny Rizzo MD [address] [place] [phone] 04/20/10 documented as of this encounter
--- OUTSIDE RECORDS SUMMARY | 2024-06-10 07:35 | XMS_ITS | Encounter Summary ---
Author Organization [facility] Address [address] [place] [address] Care Team Providers Care Supervisor Wet Room Name Role Phone Jean Munoz MD Primary Care Provider Manny Rizzo MD Unavailable Reason for Visit * Reason Onset Date Comments Wheezing 05/08/2010 Encounter Details Date Type Department Care Team (Late st Contact Info) Description 05/08/[address] [address] Caro Krueger, RN [address] [place] [address] Wheezing Social History Tobacco Use Types Packs/Day Years [...] 5 days. 10 Tab 1 05/08/2010 10/29/2010 documented in this encounter Miscellaneous Notes * Telephone Encounter - Caro Krueger RN - 05/08/2010 1651 EDT Patient notified that script at pharmacy. * Telephone Encounter - Jean Munoz MD - 05/08/2010 1457 EDT Script done, please notify patient * Telephone Encounter - Caro Krueger RN - 05/08/2010 1430 EDT PATIENT calling for refills on her advair, xopenex and prednisone. She has been experiencing cough and wheeze for over a week now. Her roomates have bronchitis. States she has a fever off and on (100orally yesterday). She has been using her advair twice daily, and two to three times daily her xopenex. She states that in the past had prescribed her prednisone and she feels that she needs it now, and usually orders it without him having to see her. She has no car and a broken ankle and cannot get here. Please advise on Prednisone thank you advair and xopenox escribed already today documented in this encounter Plan of Treatment Upcoming Encounters Date Type Department Care Team (Late st Contact Info) Description 06/29/2024 14:15 EDT Office Visit [facility] [address] [place] [address] Jean Munoz MD [address] [place] [phone] documented as of this encounter Visit Diagnoses Not on filedocumented in this encounter Care Teams Supervisor Wet Room Relationship Specialty Start Date End Date Jean Munoz MD [address] [place] [phone] PCP - General 12/31/08 Manny Rizzo MD [address] [place] [phone] 04/20/10 documented as of this encounter
--- OUTSIDE RECORDS SUMMARY | 2024-06-10 07:35 | XMS_ITS | Encounter Summary ---
Author Organization [facility] Address [address] [place] [address] Care Team Providers Care Valuation Consultant Name Role Phone Jean Munoz MD Primary Care Provider Manny Rizzo MD Unavailable Encounter Details Date Type Department Care Team (Late st Contact Info) Description 05/07/2010 Orders Only [address] [phone] Caro Krueger, RN [address] [place] [address] Anxiety; Asthma Social History Tobacco Use Types Packs/Day [...] 14:15 EDT Office Visit [facility] [address] [place] [address] Jean Munoz MD [address] [place] [phone] documented as of this encounter Visit Diagnoses Diagnosis Anxiety Anxiety state, unspecified Asthma Unspecified asthma Screening for osteoporosis- Primary [...] te sertraline (ZOLOFT) 50 mg tablet Take 3 Tabs by mouth daily. Insurance does not cover 05/07/2010 05/07/2010 documented as of this encounter Care Teams Valuation Consultant Relationship Specialty Start Date End Date Jean Munoz MD [address] [place] [phone] PCP - General 12/31/08 Manny Rizzo MD [address] [place] [phone] 04/20/10 documented as of this encounter
--- OUTSIDE RECORDS SUMMARY | 2024-06-10 07:35 | XMS_ITS | Encounter Summary ---
Author Organization [facility] Address [address] [place] [address] Care Team Providers Care Welding Pantograph Operator Name Role Phone Jean Munoz MD Primary Care Provider Reason for Visit * Reason Onset Date Comments Ankle Injury 03/31/2010 Encounter Details Date Type Department Care Team (Late st Contact Info) Description 03/31/2010 Telephone [facility] [address] [place] [address] Jean Munoz MD [address] [place] [phone] Ankle Injury Social History Tobacco Use Types Packs/Day Years [...] encounter Miscellaneous Notes * Telephone Encounter - Nuvia Colbert - 03/31/2010 1343 EDT Lon Wright's from [facility] called pt today at 1315 to in form her they would examine her at 9an 7.20.10 if swelling goes down enough they would operate on her ankle/ she will f/u c sbfp * Telephone Encounter - Eliza Rust - 03/31/2010 1317 EDT Fax from medical records was received and given to Dr Munoz. Dr Munoz said to call the pt to see if she wanted to have surgery done at [facility] or [facility]. Tried calling pt twice at number she left and got a busy signal. Will try again later. (The number she left was a friend's number since she's staying with her for a couple of days.) * Telephone Encounter - Eliza Rust - 03/31/2010 1052 EDT Pt called to ask about her recent emergency room visit at [facility]. She states she broke herankle and was supposed to have ankle surgery yesterday there but it was canceled for some reason. Now she wants to know if she is supposed to go to [facility]. I asked her to call [facility] to have them fax us a copy of all of the notes, and medical records from her visit. I called [facility] and spoke to someone in the medical records dept. She stated that she is leaving for her own appt and should be back in an hour and has a note taped to her desk to fax the records to us when she returns. documented in this encounter Plan of Treatment Upcoming Encounters Date Type Department Care Team (Late st Contact Info) Description 06/29/2024 14:15 EDT Office Visit [facility] [address] [place] [address] Jean Munoz MD [address] [place] [phone] documented as of this encounter Visit Diagnoses Not on filedocumented in this encounter Care Teams Welding Pantograph Operator Relationship Specialty Start Date End Date Jean Munoz MD [address] [place] [phone] PCP - General 12/31/08 documented as of this encounter
--- OUTSIDE RECORDS SUMMARY | 2024-06-10 07:35 | XMS_ITS | Encounter Summary ---
Author Organization [facility] Address [address] [place] [address] Care Team Providers Care Site Surveyor Name Role Phone Jean Munoz MD Primary Care Provider Manny Rizzo MD Unavailable Reason for Visit * Reason Onset Date Comments Medications Refill 06/12/2010 Encounter Details Date Type Department Care Team (Late st Contact Info) Description 06/12/2010 Refill [facility] Neurology - [address] [phone] Mik Caban MD [address] [place] [phone] Medications Refill Social History Tobacco Use [...] the morning at 8:00am 60 Tab 0 06/12/2010 07/08/2010 methylphenidate (RITALIN) 10 mg tablet Take 1 Tab by mouth daily. Take 1 tablet at noon 30 Tab 0 06/12/2010 07/08/2010 documented in this encounter Miscellaneous Notes * Telephone Encounter - Corrina Ac RN - 06/13/2010 1326 EDT Let pt know prescriptions being mailed to her home address. * Telephone Encounter - Elizabeth Oreilly - 06/12/2010 1026 EDT Refill requested. New mailing address: [address] [place] [address], [address], [place] [address]. Will be outof med by June 19. documented in this encounter Plan of Treatment Upcoming Encounters Date Type Department Care Team (Late st Contact Info) Description 06/29/2024 14:15 EDT Office Visit [facility] Family Medicine [facility] [address] [place] [address] Jean Munoz MD [address] [place] [phone] documented as of this encounter Visit Diagnoses Not on filedocumented in this encounter Discontinued Medications Medication Sig Discontinue Reason Start Date End Da te methylphenidate (RITALIN) 10 mg tablet Take 1 Tab by mouth daily. Take 1 tablet at noon Reorder 05/20/2010 06/12/2010 methylphenidate (RITALIN SR; METADATE ER; METHYLIN ER) 20 mg SR tablet Take 2 Tabs by mouth daily. Take 2 tablets in the morning Reorder 05/20/2010 06/12/2010 documented as of this encounter Care Teams Site Surveyor Relationship Specialty Start Date End Date Jean Munoz MD [address] [place] [phone] PCP - General 12/31/08 Manny Rizzo MD [address] [place] [phone] 04/20/10 documented as of this encounter
--- OUTSIDE RECORDS SUMMARY | 2024-06-10 07:35 | XMS_ITS | Encounter Summary ---
Author Organization [facility] Address [address] [place] [address] Care Team Providers Care Flow Trader Name Role Phone Jean Munoz MD Primary Care Provider Manny Rizzo MD Unavailable Reason for Visit * Reason Comments Back Pain buttock area Leg Pain posterior thigh Encounter Details Date Type Department Care Team (Late st Contact Info) Description 06/04/2010 10:30 EDT Office Visit [facility] Interventional Pain [address] [place], [place] [id number] Unknown, MD Berta Yesenia Dee MD [address] [facility] [address] [place] [address] Dave Jeffers MD [employer] [address] [place] [address] Lumbosacral spondylosis without myelopathy; Lumbago Social History Tobacco Use Types Packs/Day Years [...] Sign Reading Time Taken Comments Blood Pressure 120/87 06/04/2010 1032 EDT Pulse 80 06/04/2010 1032 EDT Temperature 37 ??C (98.6 ??F) 06/04/2010 1032 EDT Respiratory Rate 16 06/04/2010 1032 EDT Oxygen Saturation - - Inhaled Oxygen Concentration - - Weight 74.8 kg (165 lb) 06/04/2010 1032 EDT Height 162.6 cm (5' 4) 06/04/2010 1032 EDT Body Mass Index 28.32 06/04/2010 1032 EDT documented in this encounter Functional Status [...] daily as needed (spasm). 30 Tab 1 06/04/2010 08/06/2010 documented in this encounter Progress Notes * Yesenia Dee - 06/04/2010 1627 EDT Attestation statement: I discussed the patient with the resident/fellow at the time of the visit. Iagree with the findings and the plan of care documented in the resident's/fellow's note. * Dave Jeffers - 06/04/2010 1129 EDT [facility] Follow Up Note Patient Name: Liset Viera : 1960 Date of Service: 06/04/2010 Interval History: Ms. Viera presents for Low back pain with radiating features into the B/L LE, L>R. She describes constant aching LBP with a burning shooting sensation that radiates down the posterior aspect of her legs. In the left leg it travels to her foot, in the right leg it terminates above the knee. Her pain is made worse with activity such as walking and standing and at the worse her pain is a 9/10, on average her pain is a 6/10. For acute flares of her pain she has some relief with time and change of position. She has tried tylenol and vicodin in the past with minimal benefit.Currently the patient is taking lyrica and she is not sure if it is helpful. ROS: GENERAL: normal CARDIOVASCULAR: no complaints RESPIRATORY: no complaints MUSCULOSKELETAL: no complaints PSYCHIATRIC: positive for depression ENDOCRINE: no complaints Physical Examination: Vital signs: Patient Vitals in the past 24 hrs: BP Temp Temp src Pulse Resp Height Weight 06/04/10 1032 120/87 mmHg 37 ??C (98.6 ??F) Tympanic 80 16 162.6 cm (64) 74.844 kg (165 lb) General: alert, orientedX3 and no apparent distress Musculoskeletal: gait is Mildly antalgic Sensation: Intact Extremities: no clubbing, cyanosis, or edema Lumbar Spine: paraspinal tenderness at the bilateral lower levels and TTP over SIJ B/L Special tests: Patricks: Bilateral Normal and SLT: Bilateral Normal Assessment: 1. Chronic low back pain and leg pain 2. Radicular pain B/L LE L>R 3. 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 Plan Obtain MRI of lumbosacral spine for radicular symptoms Follow up following MRI for possible LESI vs SIJ injection Baclofen 0.5mg BID PRN for spasm #30 refill 1 Pt instructed to take Baclofen instead of her regularly prescribed tizanidine documented in this encounter Plan of Treatment Upcoming Encounters Date Type Department Care Team (Late st Contact Info) Description 06/29/2024 14:15 EDT Office Visit [facility] [address] [place] [address] Jean Munoz MD [address] [place] [address] documented as of this encounter Visit Diagnoses Diagnosis Lumbosacral spondylosis without myelopathy Lumbago Screening for osteoporosis- Primary Special screening for osteoporosis Primary narcolepsy without cataplexy Chronic pain syndrome Chronic low back pain Lumbago Chronic use of opiate for therapeutic purpose Pain medication agreement Encounter for long-term (current) use of other medications Screen for colon cancer Special screening for malignant neoplasms, colon documented in this encounter Care Teams Flow Trader Relationship Specialty Start Date End Date Jean Munoz MD [address] [place] [phone] PCP - General 12/31/08 Manny Rizzo MD [address] [place] [phone] 04/20/10 documented as of this encounter
--- OUTSIDE RECORDS SUMMARY | 2024-06-10 07:35 | XMS_ITS | Encounter Summary ---
Author Organization [facility] Address [address] [place] [address] Care Team Providers Care Rail Specialist Name Role Phone Jean Munoz MD Primary Care Provider Manny Rizzo MD Unavailable Reason for Visit * Reason Onset Date Comments Medications Refill 06/04/2010 missed our ca ll Encounter Details Date Type Department Care Team (Late st Contact Info) Description 06/04/2010 Refill [facility] Interventional Pain [address] [place] [address] Nikita Clark, RN Medications Refill (missed our call ) Social History Tobacco Use Types [...] Miscellaneous Notes * Telephone Encounter - Nikita Clark, RN - 06/04/2010 1641 EDT Still did not get rx and missed our call documented in this encounter Plan of Treatment Upcoming Encounters Date Type Department Care Team (Late st Contact Info) Description 06/29/2024 14:15 EDT Office Visit [facility] [address] [place] [address] Jean Munoz MD [address] [place] [phone] documented as of this encounter Visit Diagnoses Not on filedocumented in this encounter Care Teams Rail Specialist Relationship Specialty Start Date End Date Jean Munoz MD [address] [place] [phone] PCP - General 12/31/08 Manny Rizzo MD [address] [place] [address] 04/20/10 documented as of this encounter
--- OUTSIDE RECORDS SUMMARY | 2024-06-10 07:35 | XMS_ITS | Encounter Summary ---
Author Organization [facility] Address [address] [place] [address] Care Team Providers Care Green Coffee Blender Name Role Phone Jean Munoz MD Primary Care Provider Manny Rizzo MD Unavailable Reason for Visit * Reason Onset Date Comments Medications Refill 05/15/2010 Encounter Details Date Type Department Care Team (Late st Contact Info) Description 05/15/2010 Refill [facility] Neurophysiology - [facility] [address] [place], [place] [address] Massiel Watt, RN [address] [place] [address] Medications Refill Social History Tobacco Use Types [...] by mouth daily. Take 1 tablet at 1pm 30 Tab 0 05/15/2010 05/20/2010 methylphenidate (RITALIN SR; METADATE ER; METHYLIN ER) 20 mg SR tablet Take 2 Tabs by mouth daily. 60 Tab 0 05/15/2010 05/20/2010 documented in this encounter Plan of Treatment Upcoming Encounters Date Type Department Care Team (Late st Contact Info) Description 06/29/2024 14:15 EDT Office Visit [facility] [address] [place] [address] Jean Munoz MD [address] [place] [address] documented as of this encounter Visit Diagnoses Not on filedocumented in this encounter Discontinued Medications Medication Sig Discontinue Reason Start Date End Da te methylphenidate (METADATE ER; METHYLIN ER) 10 mg SR tablet Take 10 mg by mouth daily. At 1 pm Error 05/15/2010 methylphenidate (RITALIN SR; METADATE ER; METHYLIN ER) 20 mg SR tablet Take 40 mg by mouth every morning. Reorder 05/15/2010 methylphenidate (RITALIN) 10 mg tablet Take 10 mg by mouth daily. Take 1 tablet at 1pm Reorder 05/15/2010 05/15/2010 documented as of this encounter Historical Medications * This list may reflect changes made after this encounter. Medication Sig Dispensed Refills Start Date End Date methylphenidate (RITALIN) 10 mg tablet Take 10 mg by mouth daily. Take 1 tablet at 1pm 05/15/2010 05/15/2010 added in this encounter Care Teams Green Coffee Blender Relationship Specialty Start Date End Date Jean Munoz MD [address] [place] [phone] PCP - General 12/31/08 [place] [address] [place] [phone] 04/20/10 documented as of this encounter
--- OUTSIDE RECORDS SUMMARY | 2024-06-10 07:35 | XMS_ITS | Encounter Summary ---
Author Organization [facility] Address [address] [place] [address] Care Team Providers Care Legger Press Operator Name Role Phone Jean Munoz MD Primary Care Provider Manny Rizzo MD Unavailable Encounter Details Date Type Department Care Team (Late st Contact Info) Description 04/25/[address] [facility] Interventional Pain [address] [place] [address] Jean Munoz MD [address] [place] [phone] Social History Tobacco Use Types Packs/Day [...] Visit [facility] [address] [place] [address] Jean Munoz MD [address] [place] [address] documented as of this encounter Visit Diagnoses Not on filedocumented in this encounter Care Teams Legger Press Operator Relationship Specialty Start Date End Date Jean Munoz MD [address] [place] [phone] PCP - General 12/31/08 Manny Rizzo MD [address] [place] [phone] 04/20/10 documented as of this encounter
--- OUTSIDE RECORDS SUMMARY | 2024-06-10 07:35 | XMS_ITS | Encounter Summary ---
Author Organization [facility] Address [address] [place] [address] Care Team Providers Care Jig Fitter Name Role Phone Jean Munoz MD Primary Care Provider Manny Rizzo MD Unavailable Reason for Visit * Reason Onset Date Comments Medications Refill 05/07/2010 Encounter Details Date Type Department Care Team (Late st Contact Info) Description 05/07/2010 Refill [facility] [address] [place], [place] [phone] Jean Munoz MD [address] [place] [phone] Medications Refill Social History Tobacco [...] tablet Take 3 Tabs by mouth daily. 90 Tab 0 05/07/2010 05/07/2010 documented in this encounter Miscellaneous Notes * Telephone Encounter - Caro Krueger RN - 05/07/2010 1444 EDT Patient notified. * Telephone Encounter - Jean Munoz MD - 05/07/2010 1411 EDT escript done,please notify patient * Telephone Encounter - Shell Williamson - 05/07/2010 1322 EDT I called [facility] in [place], They did not have pt. Getting zoloft. She got Zoloft filled at [facility]. I called pt. She said that she last got zoloft 150 mg. Daily filled 03/27/[address] Julio from [facility]. Dr. Julio is no longer prescribing this for her. She said that [facility] is more convenient for her. Note forwarded to MD * Telephone Encounter - Lesly Mcmullen - 05/07/2010 1228 EDT Last ROV 8.9.10 Last RF ? Patient stated Zoloft 150mg daily. documented in this encounter Plan of Treatment Upcoming Encounters Date Type Department Care Team (Late st Contact Info) Description 06/29/2024 14:15 EDT Office Visit [address] [address] Jean Munoz MD [address] [place] [phone] documented as of this encounter Visit Diagnoses Not on filedocumented in this encounter Discontinued Medications Medication Sig Discontinue Reason Start Date End Da te sertraline (ZOLOFT) 50 mg tablet Take 150 mg by mouth daily. Reorder 05/07/2010 documented as of this encounter Care Teams Jig Fitter Relationship Specialty Start Date End Date Jean Munoz MD [address] [place] [phone] PCP - General 12/31/08 Manny Rizzo MD [address] [place] [phone] 04/20/10 documented as of this encounter
--- OUTSIDE RECORDS SUMMARY | 2024-06-10 07:35 | XMS_ITS | Encounter Summary ---
Author Organization [facility] Address [address] [place] [address] Care Team Providers Care Risk Lead Name Role Phone Jean Munoz MD Primary Care Provider Reason for Visit * Reason Onset Date Comments Medications Refill 04/08/2010 Encounter Details Date Type Department Care Team (Late st Contact Info) Description 04/08/2010 Refill [facility] [address] [place] [address] Jean Munoz MD [address] [place] [phone] Medications Refill Social History Tobacco [...] Da te pregabalin (LYRICA) 150 mg capsule Take 1 Cap by mouth 3 times daily. 270 Cap 1 04/08/2010 04/21/2010 pregabalin (LYRICA) 150 mg capsule Take 1 Cap by mouth 3 times daily. 270 Cap 3 04/08/2010 04/08/2010 documented in this encounter Miscellaneous Notes * Telephone Encounter - Joceline Johnston RN - 04/08/2010 1053 EDT Called into pharmacy. This is one of those meds that can only be called in for a 6 month period nota year. Pharmacy took script for 270 tabs and one refill. So changed in computer so that we will know it expires in 6 months not in one year.this was already approved. * Telephone Encounter - Jean Munoz MD - 04/08/2010 1033 EDT Med ordered, please call in to pharmacy * Telephone Encounter - Lesly Mcmullen - 04/08/2010 1016 EDT [facility] Pharmacy requesting refill for patient: Last ROV 6.9.10 Last RF 270/2 documented in this encounter Plan of Treatment Upcoming Encounters Date Type Department Care Team (Late st Contact Info) Description 06/29/2024 14:15 EDT Office Visit [facility] [address] [place] [address] Jean Munoz MD [address] [place] [phone] documented as of this encounter Visit Diagnoses Not on filedocumented in this encounter Discontinued Medications Medication Sig Discontinue Reason Start Date End Da te pregabalin (LYRICA) 150 mg capsule Take 150 mg by mouth 3 times daily. Reorder 04/08/2010 pregabalin (LYRICA) 150 mg capsule Take 1 Cap by mouth 3 times daily. Reorder 04/08/2010 04/08/2010 documented as of this encounter Care Teams Risk Lead Relationship Specialty Start Date End Date Jean Munoz MD [address] [place] [phone] PCP - General 12/31/08 documented as of this encounter
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
--- OUTSIDE RECORDS SUMMARY | 2024-06-10 07:35 | XMS_ITS | Encounter Summary ---
Author Organization [facility] Address [address] [place] [address] Care Team Providers Care [employer] Clerk Name Role Phone Jean Munoz MD Primary Care Provider Manny Rizzo MD Unavailable Reason for Visit * Reason Onset Date Comments Medications Refill 06/04/2010 pharmacy stil l did not receive the rx Encounter Details Date Type Department Care Team (Late st Contact Info) Description 06/04/2010 Refill [facility] Interventional Pain [address] [place] [address] Nikita Clark, RN Medications Refill (pharmacy still did not receive the rx ) Social History Tobacco Use Types Packs/Day [...] Miscellaneous Notes * Telephone Encounter - Karen Rose, RN - 06/05/2010 0925 EDT Medication called in to [facility]. * Telephone Encounter - Nikita Clark RN - 06/04/2010 1551 EDT Patient left a message that the pharmacy still did not receive her rx. Please call her. documented in this encounter Plan of Treatment Upcoming Encounters Date Type Department Care Team (Late st Contact Info) Description 06/29/2024 14:15 EDT Office Visit [facility] [address] [place], [place] [id number] Jean Munoz MD [address] [place] [address] documented as of this encounter Visit Diagnoses Not on filedocumented in this encounter Care Teams [employer] Clerk Relationship Specialty Start Date End Date Jean Munoz MD [address] [place] [phone] PCP - General 12/31/08 Manny Rizzo MD [address] [place] [address] 04/20/10 documented as of this encounter
--- OUTSIDE RECORDS SUMMARY | 2024-06-10 07:35 | XMS_ITS | Encounter Summary ---
Author Organization [facility] Address [address] [place] [address] Care Team Providers Care Admissions Advisor Name Role Phone Jean Munoz MD Primary Care Provider Reason for Visit * Reason Onset Date Comments Other 01/22/2010 Encounter Details Date Type Department Care Team (Late st Contact Info) Description 01/22/[address] [address] Caro Krueger, RN [address] [place] [address] Other Social History Tobacco Use Types Packs/Day [...] Encounter - Caro Krueger RN - 01/22/2010 1036 EDT See other telephone encounters dated 01/21/10 anf 01/22/10 * Telephone Encounter - EseFloresita - 01/22/2010 1014 EDT Please call pt back see is in the er documented in this encounter Plan of Treatment Upcoming Encounters Date Type Department Care Team (Late st Contact Info) Description 06/29/2024 14:15 EDT Office Visit [facility] [address] [place], [place] [phone] Jean Munoz MD [address] [place] [address] documented as of this encounter Visit Diagnoses Not on filedocumented in this encounter Care Teams Admissions Advisor Relationship Specialty Start Date End Date Jean Munoz MD [address] [place] [address] PCP - General 12/31/08 documented as of this encounter
--- OUTSIDE RECORDS SUMMARY | 2024-06-10 07:35 | XMS_ITS | Encounter Summary ---
Author Organization [facility] Address [address] [place] [address] Care Team Providers Care Paint Mixer Name Role Phone Jean Munoz MD Primary Care Provider Manny Rizzo MD Unavailable Encounter Details Date Type Department Care Team (Late st Contact Info) Description 04/29/2010 Abstract Used for ABSTRACTING Data [phone] Jean Munoz MD [address] [place] [address] Social History Tobacco Use Types Packs/Day [...] Visit [facility] 3 [place] [address] Jean Munoz MD [address] [place] [address] documented as of this encounter Visit Diagnoses Not on filedocumented in this encounter Care Teams Paint Mixer Relationship Specialty Start Date End Date Jean Munoz MD [address] [place] [address] PCP - General 12/31/08 Manny Rizzo MD [address] [place] [phone] 04/20/10 documented as of this encounter
--- OUTSIDE RECORDS SUMMARY | 2024-06-10 07:35 | XMS_ITS | Encounter Summary ---
Author Organization [facility] Address [address] [place] [address] Care Team Providers Care Client Insights Consultant Name Role Phone Jean Munoz MD Primary Care Provider Reason for Visit * Reason Onset Date Comments Medication Problem 01/21/2010 Encounter Details Date Type Department Care Team (Late st Contact Info) Description 01/21/2010 Refill [facility] [address] [place] [address] Jean Munoz MD [address] [place] [address] Medication Problem Social History Tobacco [...] Telephone Encounter - Jean Munoz MD - 01/21/2010 1330 EDT I do not recommend use of marijuana for management of chronic pain, unable to reach patient, no call back number. I called patient at [phone], left message. * Telephone Encounter - Floresita Mulligan - 01/21/2010 1300 EDT Chronic pain, smokes pot for the pain, [facility] [place]. Needs note stating she needs to smoke a little pot for the pain or she will be evicted Fax to [phone] documented in this encounter Plan of Treatment Upcoming Encounters Date Type Department Care Team (Late st Contact Info) Description 06/29/2024 14:15 EDT Office Visit [facility] [address] [place] [address] Jean Munoz MD [address] [place] [address] documented as of this encounter Visit Diagnoses Not on filedocumented in this encounter Care Teams Client Insights Consultant Relationship Specialty Start Date End Date Jean Munoz MD [address] [place] [address] PCP - General 12/31/08 documented as of this encounter
--- OUTSIDE RECORDS SUMMARY | 2024-06-10 07:35 | XMS_ITS | Encounter Summary ---
Author Organization [facility] Address [address] [place] [address] Care Team Providers Care Security Sergeant Name Role Phone Jean Munoz MD Primary Care Provider Manny Rizzo MD Unavailable Reason for Visit * Reason Onset Date Comments Sinusitis 06/25/2010 Cough 06/25/2010 Congestion (Non-specific) 06/25/2010 Encounter Details Date Type Department Care Team (Late st Contact Info) Description 06/25/2010 Telephone [facility] [address] [place] [address] Jean Munoz MD [address] [place] [address] Sinusitis; Cough; Congestion (Non-specific) Social History Tobacco Use Types [...] Dispensed Refills Start Date End Da te amoxicillin (AMOXIL) 875 mg tablet Take 1 Tab by mouth 2 times daily. 20 Tab 0 06/25/2010 08/11/2010 documented in this encounter Miscellaneous Notes * Telephone Encounter - Shell Williamson - 06/25/2010 1419 EDT Pt advised and agrees. * Telephone Encounter - Jean Munoz MD - 06/25/2010 1412 EDT Amoxicillin escribed, please let her know * Telephone Encounter - Shell Williamson - 06/25/2010 1409 EDT Chest congestion, non-productive cough. Temp. 99.0 Soreness under eyes. States tried all home remedies pg. 150. No openings. States has had abx. Called in before. * Telephone Encounter - Kamila Henderson - 06/25/2010 1236 EDT Patient has a bad sinus infection,cough that keeps her up all nite and and chest congestion. She wants to know if we will call in a prescription. documented in this encounter Plan of Treatment Upcoming Encounters Date Type Department Care Team (Late st Contact Info) Description 06/29/2024 14:15 EDT Office Visit [facility] [address] [place], [place] [phone] Jean Munoz MD [address] [place] [address] documented as of this encounter Visit Diagnoses Diagnosis Sinusitis- Primary Unspecified sinusitis (chronic) Screening for osteoporosis- Primary Special screening for osteoporosis Primary narcolepsy without cataplexy Chronic pain syndrome Chronic low back pain Lumbago Chronic use of opiate for therapeutic purpose Pain medication agreement Encounter for long-term (current) use of other medications Screen for colon cancer Special screening for malignant neoplasms, colon documented in this encounter Care Teams Security Sergeant Relationship Specialty Start Date End Date Jean Munoz MD [address] [place] [phone] PCP - General 12/31/08 Manny Rzizo MD [address] [place] [address] 04/20/10 documented as of this encounter
--- OUTSIDE RECORDS SUMMARY | 2024-06-10 07:35 | XMS_ITS | Encounter Summary ---
Author Organization [facility] Address [address] [place] [address] Care Team Providers Care Accounting Office Manager Name Role Phone Jean Munoz MD Primary Care Provider Encounter Details Date Type Department Care Team (Late st Contact Info) Description 01/17/2010 11:28 EDT - 01/27/2010 23:59 EDT Hospital Encounter [address] [address] Joanie Ngo MD [address] [facility] 4 [place] [address] Discharge Disposition: Home or Self [...] Code Departure Means Destination Home or Self Prison documented in this encounter Plan of Treatment Upcoming Encounters Date Type Department Care Team (Late st Contact Info) Description 06/29/2024 14:15 EDT Office Visit [facility] 3 [place] [address] Jean Munoz MD [address] [place] [phone] documented as of this encounter Visit Diagnoses Not on filedocumented in this encounter Care Teams Accounting Office Manager Relationship Specialty Start Date End Date Jean Munoz MD [address] [place] [address] PCP - General 12/31/08 documented as of this encounter
--- OUTSIDE RECORDS SUMMARY | 2024-06-10 07:35 | XMS_ITS | Encounter Summary ---
Author Organization [facility] Address [address] [place] [address] Care Team Providers Care Freight Conductor Name Role Phone Jean Munoz MD Primary Care Provider Encounter Details Date Type Department Care Team (Late Contact Info) Description 02/18/[address] [address] Jean Munoz MD [address] [place] [phone] Social History Tobacco Use Types Packs/Day [...] Encounters Date Type Department Care Team (Late Contact Info) Description 06/29/2024 14:15 EDT Office Visit [facility] 3 [place] [address] Jean Munoz MD [address] [place] [address] documented as of this encounter Visit Diagnoses Not on filedocumented in this encounter Care Teams Freight Conductor Relationship Specialty Start Date End Date Jean Munoz MD [address] [place] [address] PCP - General 12/31/08 documented as of this encounter
--- OUTSIDE RECORDS SUMMARY | 2024-06-10 07:35 | XMS_ITS | Encounter Summary ---
Author Organization [facility] Address [address] [place] [address] Care Team Providers Care Rod Mill Operator Name Role Phone Jean Munoz MD Primary Care Provider Manny Rizzo MD Unavailable Reason for Visit * Reason Onset Date Comments Medications Refill 07/08/2010 Requests Kaylin malathi SR 20mgs and Ritalin 10mgs - all out. Please call, she will need to burr picker. Encounter Details Date Type Department Care Team (Late st Contact Info) Description 07/08/2010 Refill [facility] - [address] [place] [address] [place], [place] [address] Mik Caban MD [address] [place] [phone] Medications Refill (Requests Ritalin SR 20mgs and Ritalin 10mgs - all out. Please call, she will need to burr picker.) Social History Tobacco Use Types Packs/Day Years [...] the morning at 8:00am 60 Tab 0 07/08/2010 08/11/2010 methylphenidate (RITALIN) 10 mg tablet Take 1 Tab by mouth daily. Take 1 tablet at noon 30 Tab 0 07/08/2010 08/11/2010 documented in this encounter Miscellaneous Notes * Telephone Encounter - Corrina Ac RN - 07/16/2010 1308 EDT Prescription was returned by Postal Service, resent prescription with APT # * Telephone Encounter - Elizabeth Oreilly - 07/08/2010 1515 EDT Please mail script to home: [address] [place] [phone]. Will be out of med by July 17. documented in this encounter Plan of Treatment Upcoming Encounters Date Type Department Care Team (Late st Contact Info) Description 06/29/2024 14:15 EDT Office Visit [facility] 3 [place] [address] Jean Munoz MD [address] [place] [address] documented as of this encounter Visit Diagnoses Not on filedocumented in this encounter Discontinued Medications Medication Sig Discontinue Reason Start Date End Da te methylphenidate (RITALIN) 10 mg tablet Take 1 Tab by mouth daily. Take 1 tablet at noon Reorder 06/12/2010 07/08/2010 methylphenidate (RITALIN SR; METADATE ER; METHYLIN ER) 20 mg SR tablet Take 2 Tabs by mouth. Take 2 tablets in the morning at 8:00am Reorder 06/12/2010 07/08/2010 documented as of this encounter Care Teams Rod Mill Operator Relationship Specialty Start Date End Date Jean Munoz MD [address] [place] [phone] PCP - General 12/31/08 Manny Rizzo MD [address] [place] [phone] 04/20/10 documented as of this encounter
--- OUTSIDE RECORDS SUMMARY | 2024-06-10 07:35 | XMS_ITS | Encounter Summary ---
Author Organization [facility] Address [address] [place] [address] Care Team Providers Care Pearler Name Role Phone Jean Munoz MD Primary Care Provider Manny Rizzo MD Unavailable Reason for Visit * Reason Onset Date Comments Medications Refill 05/07/2010 Encounter Details Date Type Department Care Team (Late st Contact Info) Description 05/07/[address] [phone] Caro Krueger, RN [address] [place] [address] Medications Refill Social History Tobacco Use Types [...] for Wheezing. 1 Inhaler 5 05/08/2010 11/13/2010 fluticasone-salmeterol (ADVAIR DISKUS) 500-50 mcg/Dose diskus inhaler Inhale 1 Puff as directed 2 times daily. 1 Each 5 05/08/2010 11/13/2010 sertraline (ZOLOFT) 100 mg tablet Take 1.5 Tabs by mouth daily. 45 Tab 0 05/07/2010 07/02/2010 documented in this encounter Miscellaneous Notes * Telephone Encounter - Caro Krueger RN - 05/08/2010 1432 EDT Doses confirmed in vipor. meds escribed See other telephone encounter today,. * Telephone Encounter - Eliza Rust - 05/08/2010 0841 EDT Called zoloft script into pharmacy. Called pt to notify her. She inquired about her other two medicines. After speaking of Lesly those two scripts are still being worked on. Pt aware. * Telephone Encounter - Lesly Mcmullen - 05/08/2010 0826 EDT Patient called left message on refill line for Xopenex,Advair and Prednisone no dosages left. * Telephone Encounter - Caro Krueger RN - 05/07/2010 1648 EDT Pharmacy calling. Zoloft needs to be 100mg tablets take one and a half tablets daily in order to becovered by insurance (also patient states this is how she has been taking it.) Plan: med approved and changed in prism documented in this encounter Plan of Treatment Upcoming Encounters Date Type Department Care Team (Late st Contact Info) Description 06/29/2024 14:15 EDT Office Visit [facility] 3 [place], [place] [phone] Jean Munoz MD [address] [place] [address] documented as of this encounter Visit Diagnoses Not on filedocumented in this encounter Discontinued Medications Medication Sig Discontinue Reason Start Date End Da te fluticasone-salmeterol (ADVAIR DISKUS) 500-50 mcg/Dose diskus inhaler Inhale as directed 2 times daily. Reorder 05/08/2010 documented as of this encounter Care Teams Pearler Relationship Specialty Start Date End Date Jean Munoz MD [address] [place] [phone] PCP - General 12/31/08 Manny Rizzo MD [address] [place] [phone] 04/20/10 documented as of this encounter
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
--- OUTSIDE RECORDS SUMMARY | 2024-06-10 07:35 | XMS_ITS | Encounter Summary ---
Author Organization [facility] Address [address] [place] [address] Care Team Providers Care Pneumatic Tube Fitter Name Role Phone Jean Munoz MD Primary Care Provider Encounter Details Date Type Department Care Team (Late st Contact Info) Description 03/04/2010 Abstract [facility] Plastic, Reconstructive & Cosmetic Surgery - [address], [address] [place] [address] Jean Munoz MD [address] [place] [address] Social History Tobacco Use Types [...] [facility] 3 [place] [address] Jean Munoz MD [address] [place] [address] documented as of this encounter Visit Diagnoses Not on filedocumented in this encounter Care Teams Pneumatic Tube Fitter Relationship Specialty Start Date End Date Jean Munoz MD [address] [place] [address] PCP - General 12/31/08 documented as of this encounter
--- OUTSIDE RECORDS SUMMARY | 2024-06-10 07:35 | XMS_ITS | Encounter Summary ---
Author Organization [facility] Address [address] [place] [address] Care Team Providers Care Motor Equipment Sergeant Name Role Phone Jean Munoz MD Primary Care Provider Manny Rizzo MD Unavailable Encounter Details Date Type Department Care Team (Late st Contact Info) Description 05/29/2010 Abstract Used for ABSTRACTING Data [phone] Jean Munoz MD [address] [place] [phone] Social History Tobacco Use Types Packs/Day [...] EDT Office Visit [facility] 3 [place] [address] Jean Munoz MD [address] [place] [address] documented as of this encounter Visit Diagnoses Not on filedocumented in this encounter Historical Medications * This list may reflect changes made after this encounter. Medication Sig Dispensed Refills Start Date End Date hydrocodone-acetaminophen (VICODIN) 5-500 mg per tablet Take 6-8 Tabs by mouth daily. 05/29/2010 08/11/2010 DIAZepam (VALIUM) 5 mg tablet Take 5 mg by mouth at bedtime. 05/29/2010 08/11/2010 atenolol (TENORMIN) 25 mg tablet Take 25 mg by mouth at bedtime. 05/29/2010 08/11/2010 citalopram (CELEXA) 40 mg tablet Take 40 mg by mouth daily. 07/02/2010 added in this encounter Care Teams Motor Equipment Sergeant Relationship Specialty Start Date End Date Jean Munoz MD [address] [place] [address] PCP - General 12/31/08 Manny Rizzo MD [address] [place] [address] 04/20/10 documented as of this encounter
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
--- OUTSIDE RECORDS SUMMARY | 2024-06-10 07:35 | XMS_ITS | Encounter Summary ---
Author Organization [facility] Address [address] [place] [address] Care Team Providers Care Combination Operator Name Role Phone Jean Munoz MD Primary Care Provider Manny Rizzo MD Unavailable Reason for Visit * Reason Onset Date Comments Medications Refill 08/06/2010 Encounter Details Date Type Department Care Team (Late st Contact Info) Description 08/06/2010 Refill [facility] Interventional Pain [address] [place], [place] [phone] Dave Jeffers MD [facility] [employer] [address] [place] [address] Medications Refill Social History Tobacco [...] needed (spasm). 30 Tab 1 08/06/2010 10/02/2010 documented in this encounter Miscellaneous Notes * Telephone Encounter - Antonella Manriquez - 08/08/2010 1256 EST PT ALSO CALLED ABOUT SCRIPT * Telephone Encounter - Yohana Watson - 08/06/2010 1540 EST Pharmacy sent request. documented in this encounter Plan of Treatment Upcoming Encounters Date Type Department Care Team (Late st Contact Info) Description 06/29/2024 14:15 EDT Office Visit [facility] [address] [place], [place] [phone] Jean Munoz MD [address] [place] [phone] documented as of this encounter Visit Diagnoses [...] 2 times daily as needed (spasm). Reorder 06/04/2010 08/06/2010 documented as of this encounter Care Teams Combination Operator Relationship Specialty Start Date End Date Jean Munoz MD [address] [place] [address] PCP - General 12/31/08 Manny Rizzo MD [address] [place] [phone] 04/20/10 documented as of this encounter
--- OUTSIDE RECORDS SUMMARY | 2024-06-10 07:35 | XMS_ITS | Encounter Summary ---
Author Organization [facility] Address [address] [place] [address] Care Team Providers Care Wet Room Supervisor Name Role Phone Jean Munoz MD Primary Care Provider Manny Rizzo MD Unavailable Reason for Visit * Reason Comments Back Pain Encounter Details Date Type Department Care Team (Late st Contact Info) Description 07/14/2010 10:30 EDT Office Visit [facility] Interventional Pain [address] [place] [address] Unknown, Provider, Nohemy Sandoval MD [address] [facility] [address] [place] [address] Dave Jeffers MD [facility] [employer] [facility] [address] [place] [address] Low back pain; Radicular pain; Lumbosacral spondylosis without myelopathy; Degeneration of lumbar or lumbosacral intervertebral disc; Sacroiliitis, not elsewhere classified (HCC-CMS) Social History Tobacco Use Types Packs/Day [...] Sign Reading Time Taken Comments Blood Pressure 131/80 07/14/2010 1106 EDT Pulse 67 07/14/2010 1106 EDT Temperature 35.7 ??C (96.3 ??F) 07/14/2010 1024 EDT Respiratory Rate 16 07/14/2010 1024 EDT Oxygen Saturation - - Inhaled Oxygen Concentration - - Weight 77.1 kg (170 lb) 07/14/2010 1024 EDT Height 162.6 cm (5' 4) 07/14/2010 1024 EDT Body Mass Index 29.18 07/14/2010 1024 EDT documented in this encounter Functional Status Cognitive Status Response Date of Assessm ent Because of a physical, menta l, or emotional condition, do you have serious difficulty concentrating, remembering, or making decisions? (5 years old or older) Yes 11/21/2009 documented as of this encounter Patient Instructions * Patient Instructions* Mukesh Freeman RN - 07/14/2010 11:06 EDT [facility] [address] [address] Patient Instructions You have had your lumbar [...] block, please call documented in this encounter Progress Notes * Dave Jeffers - 07/14/2010 1051 EDT Patient Name: Liset Viera : 1960 Date of Service: 07/14/2010 Gear Grinder: Nohemy Sandoval MD Electrical Contacts Adjuster: Dave Jeffers MD Procedure: Lumbar epidural steroid injection at L5-S1 Interval History: Ms. Viera presents at the request of Jean Munoz for evaluation and treatment of her chronic low back pain. The pain is primarily localized to the bilateral low back and radiates to the bilateral legs. This pain has been present for 2 year(s) and is described as dull aching, sharp and shooting in character. The average pain intensity is 7/10 and is aggravated by standing, walking and beling in one position for too long including laying. changing positions, stretching,applying heat alleviates the pain. Associated symptoms include numbness of the top of the left foot. This pain has not responded to conservative measures. On the patient's last visit it was decided to obtain an MRI, unfortunately for unknown reasons this was denied by the pt's insurance company. Secontinues to have B/L LBP with radiating pain [...] Temp Temp src Pulse Resp Height Weight 07/14/10 1024 96/68 mmHg 35.7 ??C (96.3 ??F) Tympanic 66 16 162.6 cm (64) 77.111 kg (170 lb) General:awake, alert, orientedX3 and no apparent distress Musculoskeletal: Gait: Mildly antalgic, Lumbar Spine: paraspinal tenderness at the left lower levels and Patricks is positive on the left, Patricks is positive on the right, SLT is positive on the left and SLT is negative on the right Neuro: Strength Exam: bilateral Plantar Flexion and Dorsiflexion 5/5 Sensory Exam: Normal Assessment: 1. Encounter Diagnoses Name Primary? Low back pain ??? Radicular pain ??? Lumbosacral spondylosis without myelopathy ??? Degeneration of lumbar or lumbosacral intervertebral disc ??? Sacroiliitis, not elsewhere classified Plan: Proceed with LESI at L5-S1 Followup: as needed for possible repeat injection. Continue current medication regimen. PROCEDURE: The patient gave informed written consent [...] allergies. Fluoroscopy was used to visualize the L5-S1 disc space. The skin and subcutaneous [...] After negative aspiration, 80 mg Depo-Medrol and 1 cc of NS and no ml local anesthetic were injected. The needle was then flushed and withdrawn. The patient tolerated the procedure well, there were no apparent complications, and she was discharged in stable condition. Written and verbal discharge instructions were reviewed with the patient prior to discharge. Attending attestation: I was present during the horton and critical portions of the procedure and agree with the resident's/fellow's note. NOHEMY SANDOVAL MD 07/14/2010 11:52 * Mukesh Freeman RN - 07/14/2010 1030 EDT [facility] Rooming Note Does patient have a Electrician Bus? yes Is patient NPO? (Solids since midnight & liquids for 4 hrs) Blood Thinners: Is patient on Blood Thinners? no If yes, taking? If stopped, who authorized stopping? Related comments: Infections: Any recent infections, fever of illnesses? no If on antibiotics, is it 7-10 days past the date of completion of antibiotics? : (for females of child-bearing age) no Is there a chance current ? Other: [facility] Moment Checklist Attention: This checklist should be reviewed with the patient, provider, nurse/MA and certified composites technician in the room prior to local anesthetic administration. Patient Identifier #1: Full name: yes Patient Identifier #2: Date of : yes Allergy to Iodine, Local Anesthetics, Band-Aids? No Location of Pain: mid lumbar Location of Injection: Mid lumbar Safety devices in place : Grounding Pad: No MUKESH FREEMAN RN 07/14/2010 , 10:59 documented in this encounter Miscellaneous Notes * Scanned Note-Null - Inpatient, Physician - 07/22/2010 1350 EST documented in this encounter Plan of Treatment Upcoming Encounters Date Type Department Care Team (Late st Contact Info) Description 06/29/2024 14:15 EDT Office Visit [facility] [address] [place] [address] Jean Munoz MD [address] [place] [address] documented as of this encounter Visit Diagnoses Diagnosis Low back pain Lumbago Radicular pain Neuralgia, neuritis, and radiculitis, unspecified Lumbosacral spondylosis without myelopathy Degeneration of lumbar or lumbosacral intervertebral disc Sacroiliitis, not elsewhere classified ([facility]) Sacroiliitis, not elsewhere classified Screening for osteoporosis- Primary Special screening for osteoporosis Primary narcolepsy without cataplexy Chronic pain syndrome Chronic low back pain Lumbago Chronic use of opiate for therapeutic purpose Pain medication agreement Encounter for long-term (current) use of other medications Screen for colon cancer Special screening for malignant neoplasms, colon documented in this encounter Care Teams Wet Room Supervisor Relationship Specialty Start Date End Date Jean Munoz MD [address] [place] [address] PCP - General 12/31/08 Manny Rizzo MD [facility] [place] [address] 04/20/10 documented as of this encounter
--- OUTSIDE RECORDS SUMMARY | 2024-06-10 07:35 | XMS_ITS | Encounter Summary ---
Author Organization [facility] Address [address] [place] [address] Care Team Providers Care Scale Balancer Name Role Phone Jean Munoz MD Primary Care Provider Manny Rizzo MD Unavailable Reason for Visit * Reason Onset Date Comments Medications Refill 05/20/2010 Encounter Details Date Type Department Care Team (Late st Contact Info) Description 05/20/2010 Refill [facility] Neurophysiology - [facility] [address] [place], [place] [address] Massiel Watt, RN [address] [place] [address] Medications Refill Social History Tobacco Use Types [...] daily. Take 2 tablets in the morning 60 Tab 0 05/20/2010 06/12/2010 methylphenidate (RITALIN) 10 mg tablet Take 1 Tab by mouth daily. Take 1 tablet at noon 30 Tab 0 05/20/2010 06/12/2010 documented in this encounter Plan of Treatment Upcoming Encounters Date Type Department Care Team (Late st Contact Info) Description 06/29/2024 14:15 EDT Office Visit [facility] [address] [place], [place] [id number] Jean Munoz MD [address] [place] [phone] documented as of this encounter Visit Diagnoses Not on filedocumented in this encounter Discontinued Medications Medication Sig Discontinue Reason Start Date End Da te methylphenidate (RITALIN) 10 mg tablet Take 1 Tab by mouth daily. Take 1 tablet at 1pm Reorder 05/15/2010 05/20/2010 methylphenidate (RITALIN SR; METADATE ER; METHYLIN ER) 20 mg SR tablet Take 2 Tabs by mouth daily. Reorder 05/15/2010 05/20/2010 documented as of this encounter Care Teams Scale Balancer Relationship Specialty Start Date End Date Jean Munoz MD [address] [place] [address] PCP - General 12/31/08 Manny Rizzo MD [address] [place] [id number] 04/20/10 documented as of this encounter
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
[2024-06-10] MEDS: Albuterol/Ipratropium 3 ML UPD VIAL UPD (07:36)
[2024-06-10] MEDS: predniSONE 20 MG TAB 40 MG PO (07:36)
--- OUTSIDE RECORDS SUMMARY | 2024-06-10 07:36 | XMS_ITS | Encounter Summary ---
Author Organization [facility] Address [address] [place] [address] Care Team Providers Care Intern Architect Name Role Phone Jean Munoz MD Primary Care Provider Encounter Details Date Type Department Care Team (Late st Contact Info) Description 09/26/[address] [address] Jean Munoz MD [address] [place] [phone] Social History Tobacco Use Types Packs/Day [...] on file documented as of this encounter Plan of Treatment Upcoming Encounters Date Type Department Care Team (Late st Contact Info) Description 06/29/2024 14:15 EDT Office Visit [facility] [address] [place] [address] Jean Munoz MD [address] [place] [phone] documented as of this encounter Visit Diagnoses Not on filedocumented in this encounter Historical Medications * This list may reflect changes made after this encounter. Medication Sig Dispensed Refills Start Date End Date pregabalin (LYRICA) 150 mg capsule Take 150 mg by mouth 3 times daily. 04/08/2010 added in this encounter Care Teams Intern Architect Relationship Specialty Start Date End Date Jean Munoz MD [address] [place] [phone] PCP - General 12/31/08 documented as of this encounter
--- OUTSIDE RECORDS SUMMARY | 2024-06-10 07:36 | XMS_ITS | Encounter Summary ---
Author Organization [facility] Address [address] [place] [address] Care Team Providers Care Health Technical Writer Name Role Phone Jean Munoz MD Primary Care Provider Reason for Visit * Reason Onset Date Comments Medications Refill 10/31/2009 Encounter Details Date Type Department Care Team (Late st Contact Info) Description 10/31/2009 Refill [facility] Family Medicine [facility] [address] [place] [address] Jean Munoz MD [address] [place] [address] Medications Refill Social History Tobacco [...] on file documented as of this encounter Ordered Prescriptions Prescription Sig Dispensed Refills Start Date End Da te zolpidem (AMBIEN) 10 mg tablet Take 1 Tab by mouth at bedtime as needed for Sleep. 90 Tab 0 10/31/2009 11/29/2009 documented in this encounter Miscellaneous Notes * Telephone Encounter - Joceline Johnston RN - 11/01/2009 0929 EST Called into pharmacy * Telephone Encounter - Toshia Edwards MD - 10/31/2009 1914 EST ok * Telephone Encounter - Joceline Johnston RN - 10/31/2009 1503 EST Can you approve this for RL * Telephone Encounter - Kamila Henderson - 10/31/2009 1443 EST LV 1.3.10 NV 4.1.10 documented in this encounter Plan of Treatment Upcoming Encounters Date Type Department Care Team (Late st Contact Info) Description 06/29/2024 14:15 EDT Office Visit [facility] [address] [place] [address] Jean Munoz MD [address] [place] [phone] documented as of this encounter Visit Diagnoses Not on filedocumented in this encounter Discontinued Medications Medication Sig Discontinue Reason Start Date End Da te zolpidem (AMBIEN) 10 mg tablet Take 10 mg by mouth at bedtime as needed for Sleep. Reorder 10/31/2009 documented as of this encounter Care Teams Health Technical Writer Relationship Specialty Start Date End Date Jean Munoz MD [address] [place] [phone] PCP - General 12/31/08 documented as of this encounter
--- OUTSIDE RECORDS SUMMARY | 2024-06-10 07:36 | XMS_ITS | Encounter Summary ---
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 11/21/2009 7:17 EST 11/21/2009 8:02 EST Savage Jones MD CHEMISTRY & BLOOD GA S ORDERABLES [facility] [address] [place] [address] * (ABNORMAL) POCT URINE DIPSTICK (11/20/2009 16:56 EST) Pathologist [facility] [place] Color, UA POINT OF CARE Clarity, UA POINT OF CARE Glucose, UA Negative Negative, Trace mg/dL POINT [facility] CARE Bilirubin, UA Negative Negative POINT OF CARE Ketones, UA 1+(A) Negative mg/dL [facility] Spec Grav, UA 1.020 1.010, 1.015, 1.020, 1.025 POINT OF CARE Blood, UA Negative Negative POINT OF CARE pH, UA 7.5 4.6 - 8.0 POINT OF CARE Protein, UA Negative Negative mg/dL POINT OF CARE Urobilinogen, UA 0.2 2.0 E.U./dL POINT OF CARE Nitrite, UA Negative Negative POINT OF CARE Leuk Esterase Negative Negative POINT OF CARE Comment POINT OF CARE Urine specimen (specimen) 11/20/2009 16:56 EST Jorge Philippe MD POINT OF CARE TEST O RDERABLES Performing Organization Address [facility]/ZIP Co de Phone Number POINT OF CARE * (ABNORMAL) HEMAGRAM AND DIFFERENTIAL (11/20/2009 13:38 EST) Pathologist [facility] [place] WBC 7.03 4.0 - 12.4 K/cmm [facility] RBC 4.23 3.86 - 5.04 M/cmm [facility] Hemoglobin 13.5 11.6 - 15.2 gm/dl [facility] HCT 40.0 34.9 - 44.4 % [facility] MCV 94 81 - 98 fl [facility] MCH 32.0 26.7 - 33.3 pg [facility] MCHC 33.8 32.1 - 35.9 gm/dl [facility] PLT 412(H) 141 - 320 K/cmm [facility] RDW-CV 13.9 11.7 - 14.6 % [facility] % Neutrophils 57.9 45.5 - 79.7 % [facility] % Lymphocytes 31.4 15.0 - 46.8 % [facility] % Monocytes 7.2 1.8 - 12.0 % [facility] % Eosinophils 2.1 0.6 - 6.9 % [facility] % Basophils 1.4 0.2 - 1.4 % [facility] ABS Neutrophils 4.08 2.20 - 8.85 K/cmm [facility] ABS Lymphs 2.21 1.09 - 3.30 K/cmm [facility] ABS Monocytes 0.50 0.1 - 0.8 K/cmm [facility] ABS Eosinophils 0.15 0.03 - 0.61 K/cmm [facility] ABS Basophils 0.10 0.01 - 0.11 K/cmm [facility] Type of Diff: Automated [facility] Blood specimen (specimen) 11/20/2009 13:38 EST 11/20/2009 14:27 EST Jorge Philippe MD PACKAGES & DNA PROBE ORDERABLES Performing Organization Address [facility] de Phone Number [facility] [address] [place] [address] * LIPASE (11/20/2009 13:38 EST) Lipase 64 0 - 250 U/L [facility] Blood specimen (specimen) 11/20/2009 13:38 EST 11/20/2009 14:27 EST Jorge Philippe MD CHEMISTRY & BLOOD GA S ORDERABLES Performing Organization Address [facility] Phone Number [facility] [address] [place] [address] * LIVER FUNCTION TESTS (11/20/2009 13:38 EST) Albumin 3.8 3.4 - 4.9 g/dl [facility] Total Protein 6.9 6.5 - 8.3 g/dl [facility] Total Alkaline Phosphatase 75 38 - 126 U/L [facility] ALT 23 9 - 52 U/L [facility] AST 16 15 - 46 U/L [facility] Unconjugated Bilirubin 0.7 0.1 - 1.1 mg/dl [facility] Conjugated Bilirubin 0.0 0.0 - 0.3 mg/dl [facility] Bilirubin, Total 0.6 0.2 - 1.3 mg/dl [facility] Blood specimen (specimen) 11/20/2009 13:38 EST 11/20/2009 14:27 EST Jorge Philippe MD CHEMISTRY & BLOOD GA S ORDERABLES Performing Organization Address [facility] Phone Number [facility] [address] [place] [address] * CREATININE (11/20/2009 13:38 EST) Creatinine 0.70 0.7 - 1.5 mg/dl [facility] GFR, Calculated >60 ml/min/1.7 3m2 [facility] Blood specimen (specimen) 11/20/2009 13:38 EST 11/20/2009 14:27 EST Jorge Philippe MD CHEMISTRY & BLOOD GA S ORDERABLES Performing Organization Address [facility] Phone Number [facility] [address] [place] [address] * (ABNORMAL) BUN (11/20/2009 13:38 EST) BUN 8(L) 10 - 26 mg/dl [facility] Blood specimen (specimen) 11/20/2009 13:38 EST 11/20/2009 14:27 EST Jorge Philippe MD CHEMISTRY & BLOOD GA S ORDERABLES Performing Organization Address [facility] Phone Number [facility] [address] [place] [address] * (ABNORMAL) ELECTROLYTES (11/20/2009 13:38 EST) Sodium 142 136 - 145 mEq/L [facility] Potassium 3.2(L) 3.5 - 5.0 mEq/L [facility] Chloride 105 96 - 110 mEq/L [facility] CO2 33(H) 24 - 32 mEq/L [facility] Blood specimen (specimen) 11/20/2009 13:38 EST 11/20/2009 14:27 EST Jorge Philippe MD CHEMISTRY & BLOOD GA S ORDERABLES [facility] [address] [place] [address] documented in this encounter Visit Diagnoses Diagnosis Nausea, vomiting and diarrhea- Primary Diarrhea Mood disorder (HCC-CMS) Unspecified episodic mood disorder Vomiting Vomiting alone Depression Depressive disorder, not elsewhere classified Cervicalgia Screening for osteoporosis- Primary Special screening [...] mg, oral, NOW X1, 1 dose, On Wed11/20/09 at 1600, STAT Given 11/20/2009 15:43 EST 650 mg acetaminophen (TYLENOL) tablet 650 mg 650 mg, oral, EVERY 4 HOURS PRN, Starting on Wed11/22/09 at 0647, Until Wed11/29/09 at 1537, Pain, Routine Given 11/27/2009 7:00 EDT 650 mg Given 11/22/2009 6:54 EST 650 mg atenolol (TENORMIN) tablet 100 mg 100 mg, oral, DAILY, First dose on Wed11/21/09 at 0900, Until Discontinued, Routine Given 11/28/2009 8:36 EDT 100 mg Given 11/27/2009 8:07 EDT 100 mg Given 11/26/2009 9:03 EDT 100 mg atenolol (TENORMIN) tablet 75 mg 75 mg, oral, DAILY, First dose (after last modification) on Wed11/29/09 at 0900, Until Discontinued, Routine Given 11/29/2009 8:30 EDT 75 mg citalopram (CELEXA) tablet 40 mg 40 mg, oral, DAILY, First dose on Wed11/21/09 at 0900, Until Discontinued, Routine Given 11/29/2009 8:30 EDT 40 mg Given 11/27/2009 8:07 EDT 40 mg Given 11/26/2009 9:03 EDT 40 mg diazepam (VALIUM) tablet 5 mg 5 mg, oral, NOW X1, 1 dose, On Wed11/20/09 at 1715, STAT Given 11/20/2009 17:06 EST 5 mg diazepam (VALIUM) tablet 5 mg 5 mg, oral, EVERY 6 HOURS PRN, Starting on Wed11/22/09 at 1041, Until Wed11/29/09 at 1537, Anxiety, Routine Given 11/29/2009 7:10 EDT 5 mg Given 11/29/2009 1:30 EDT 5 mg Given 11/28/2009 19:29 EDT 5 mg fluticasone-salmeterol (ADVAIR) 500-50 mcg/Dose diskus inhaler 1 Puff 1 Puff, inhalation, 2 TIMES DAILY, First dose on Wed11/21/09 at 0900, Until Discontinued, Routine Given 11/29/2009 8:30 EDT 1 Puff Given 11/28/2009 20:48 EDT 1 Puff Given 11/28/2009 8:36 EDT 1 Puff hemorrhoidal (ANUSOL) ointment Oint topical (top), 2 TIMES DAILY PRN, Starting on Wed11/22/09 at 0953, Until Wed11/25/09 at 0931, Pain, Itching Given 11/25/2009 9:30 EDT hydrocodone-acetaminophen (LORTAB;VICODIN) 5-500 mg per tablet 1 Tab 1 Tablet, oral, NOW X1, 1 dose, On Wed11/21/09 at 2130, Routine Given 11/21/2009 21:35 EST 1 Tablet hydrocodone-acetaminophen (LORTAB;VICODIN) 5-500 mg per tablet 1 Tab 1 Tablet, oral, EVERY 6 HOURS PRN, Starting on Wed11/22/09 at 1039, Until Wed11/29/09 at 1537, Pain, Routine Given 11/29/2009 7:10 EDT 1 Tablet Given 11/29/2009 1:30 EDT 1 Tablet Given 11/28/2009 19:30 EDT 1 Tablet hydrocortisone (ANUSOL-HC) 2.5 % rectal cream rectal, 2 TIMES DAILY, First dose on Wed11/25/09 at 1000, Until Discontinued Given 11/29/2009 8:30 EDT Given 11/27/2009 20:52 EDT Given 11/27/2009 8:07 EDT hydrocortisone 0.5 % cream topical (top), 3 TIMES DAILY, First dose on Wed11/24/09 at 2100, Until Discontinued Given 11/28/2009 8:36 EDT Given 11/27/2009 8:07 EDT Given 11/26/2009 21:12 EDT lidocaine (XYLOCAINE) 2 % 10 mL, aluminum & magnesium hydroxide-simethicone (MYLANTA-DS) 400-400-40 mg/5 mL 30 mL (GI Cocktail) 40 mL, oral, NOW X1, 1 dose, On Wed11/21/09 at 0100, STAT Given 11/21/2009 0:56 EST lorazepam (ATIVAN) injection 0.5 mg 0.5 mg, intravenous, EVERY 4 HOURS PRN, Starting on Wed11/20/09 at 1330, Until Wed11/21/09 at 0352, Anxiety, STAT Given 11/20/2009 13:45 EST 0.5 mg menthol-cetylpyridinium (CEPACOL) 3 mg lozenge 1 Lozenge 1 Lozenge, buccal, PRN, Starting on Wed11/27/09 at 2056, Until Wed11/29/09 at 1537, Pain, Routine Given 11/28/2009 18:09 EDT 1 Lozenge methylphenidate (RITALIN SR; METADATE ER; METHYLIN ER) ER tablet 20 mg 20 mg (10 mg), oral, 2 TIMES DAILY, First dose on Wed11/25/09 at 1330, Until Discontinued, Routine Given 11/29/2009 8:30 EDT 20 mg Given 11/28/2009 13:00 EDT 10 mg Given 11/28/2009 8:36 EDT 10 mg metoCLOPramide (REGLAN) injection 10 mg 10 mg, intravenous, EVERY 6 HOURS, First dose on Wed11/21/09 at 0100, Until Discontinued, STAT Given 11/21/2009 0:57 EST 10 mg nicotine (NICODERM CQ) 21 mg/24 hr patch 1 Patch 1 Patch, transdermal, DAILY, First dose on Wed11/27/09 at 1015, Until Discontinued, Routine Given 11/29/2009 8:30 EDT 1 Patch nicotine (NICOTROL) 10 mg inhaler 1 Inhaler 1 Inhaler, inhalation, EVERY 2 HOURS PRN, Starting on Wed11/21/09 at 1726, Until Wed11/29/09 at 1537, Smoking Cessation, Routine Given 11/25/2009 19:04 EDT 1 Inhaler Given 11/23/2009 16:30 EST 1 Inhaler ondansetron (PF) (ZOFRAN) 4 mg/2 mL injection 4 mg 4 mg, intravenous, NOW X1, 1 dose, On Wed11/20/09 at 1345, STAT Given 11/20/2009 13:45 EST 4 mg potassium chloride SA (K-DUR, KLOR-CON M20) tablet 20 mEq 20 mEq, oral, 2 TIMES DAILY, First dose on Wed11/21/09 at 1100, Until Discontinued, Routine Given 11/25/2009 9:26 EDT 20 mEq Given 11/24/2009 21:23 EDT 20 mEq Given 11/24/2009 8:59 EDT 20 mEq pregabalin (LYRICA) capsule 150 mg 150 mg, oral, 3 TIMES DAILY, First dose on Wed11/21/09 at 0900, Until Discontinued, Routine Given 11/29/2009 8:30 EDT 15 0 mg Given 11/28/2009 20:49 EDT 150 mg Given 11/28/2009 14:00 EDT 150 mg sodium chloride 0.9 % 1,000 mL BOLUS 1,000 mL, intravenous, Once (Without Time Specified), 1 dose, Starting on Wed11/20/09 at 1345, Until Wed11/20/09 at 1345, STAT Given 11/20/2009 13:45 EST 1,000 mL sodium chloride 0.9 % 1,000 mL BOLUS 1,000 mL, intravenous, Once (Without Time Specified), 1 dose, Starting on Wed11/21/09 at 0100, Until Wed11/21/09 at 0057, STAT Given 11/21/2009 0:57 EST 1,000 mL sumatriptan (IMITREX) tablet 50 mg 50 mg, oral, NOW X1, 1 dose, On Wed11/20/09 at 1830, STAT Given 11/20/2009 18:38 EST 50 mg sumatriptan (IMITREX) tablet 50 mg 50 mg, oral, ONCE PRN, 1 dose, Starting on Wed11/21/09 at 0352, Until Wed11/21/09 at 0436, Migraine, Routine Given 11/21/2009 4:36 EST 50 mg sumatriptan (IMITREX) tablet 50 mg 50 mg, oral, DAILY PRN, Starting on Cayla 11/21/09 at 0640, Until Wed11/29/09 at 1537, Migraine, Routine Given 11/28/2009 19:30 EDT 50 mg Given 11/26/2009 15:01 EDT 50 mg tizanidine (ZANAFLEX) tablet 10 mg 10 mg, oral, AT BEDTIME, First dose on [place] 11/21/09 at 2100, Until Discontinued, Routine Given 11/28/2009 20:49 EDT 1 0 mg Given 11/27/2009 21:30 EDT 10 mg Given 11/26/2009 21:12 EDT 10 mg zolpidem (AMBIEN) tablet 10 mg 10 mg, oral, AT BEDTIME PRN, Starting on [place] 11/21/09 at 0636, Until Wed11/29/09 at 1537, Sleep, Routine Given 11/29/2009 1:30 EDT 10 mg Given 11/28/2009 0:41 EDT 10 mg Given 11/26/2009 23:59 EDT 10 mg documented in this encounter Discontinued Medications Medication Sig Discontinue Reason Start Date End Da te ondansetron (ZOFRAN-ODT) 4 mg disintegrating tablet Take 1 Tab by mouth every 8 hours as needed for Nausea. 11/15/2009 11/21/2009 METHYLPHENIDATE HCL (RITALIN SR ORAL) Take 10 mg by mouth. Frequency: every noon. 11/21/2009 methylphenidate (RITALIN SR) 20 mg SR tablet Take 2 Tabs by mouth. Frequency: every morning. 11/21/2009 predniSONE (DELTASONE) 20 mg tablet Take 20 mg by mouth as needed. 11/21/2009 ropinirole (REQUIP) 1 mg tablet Take 1 mg by mouth at bedtime. 11/21/2009 hydrocodone-acetaminophen (VICODIN) 5-500 mg per tablet Take 1 Tab by mouth 5 times daily. 11/21/2009 PSYLLIUM SEED/SUCROSE (FIBER ORAL) Take by mouth daily. Dose: take 1. 11/21/2009 docusate sodium (COLACE) 100 mg capsule Take 100 mg by mouth as needed for Constipation. 11/21/2009 fexofenadine (CAROL ANN) 180 mg tablet Take 180 mg by mouth daily. 11/21/2009 MOMETASONE FUROATE (NASONEX NASL) by Nasal route as needed. 11/21/2009 SENNOSIDES (SENEXON ORAL) Take 2 Tabs by mouth at bedtime. 11/21/2009 promethazine (PHENERGAN) 25 mg tablet Take 25 mg by mouth as needed. 11/21/2009 oxycodone-acetaminophen (PERCOCET) 5-325 mg per tablet Take 1 Tab by mouth every 6 hours as needed for Pain. 04/04/2009 11/21/2009 methylphenidate (RITALIN) 20 mg tablet Take 20 mg by mouth 2 times daily. 11/21/2009 ropinirole (REQUIP) 4 mg tablet Take 4 mg by mouth at bedtime. 11/21/2009 atenolol (TENORMIN) 50 mg tablet Take 50 mg by mouth at bedtime. 11/21/2009 pregabalin (LYRICA) 100 mg capsule Take 100 mg by mouth 3 times daily. 11/21/2009 hydrocodone-acetaminophen (LORTAB) 5-500 mg Tab Take 1 Tab by mouth. 4 times a day for hip arthritic pain 11/21/2009 sumatriptan (IMITREX) 50 mg tablet Take 50 mg by mouth as needed for Migraine. 11/21/2009 tizanidine (ZANAFLEX) 4 mg tablet Take 4 mg by mouth at bedtime. 11/21/2009 ondansetron (ZOFRAN) 4 mg tablet Take 1 Tab by mouth every 8 hours as needed for Nausea. 11/15/2009 11/29/2009 zolpidem (AMBIEN) 10 mg tablet Take 1 Tab by mouth at bedtime as needed for Sleep. 10/31/2009 11/29/2009 TIZANIDINE HCL (TIZANIDINE ORAL) Take 10 mg by mouth at bedtime. 11/29/2009 documented as of this encounter Active and Recently Administered Medications Times are shown in EDT. Scheduled Medication Order 11/27/2009 11/28/2009 11/29/2009 atenolol (TENORMIN) tablet 100 mg (CANCELED) 100 mg, oral, DAILY, First dose on [place] 11/21/09 at 0900, Until Discontinued, Routine 0807 (Given - Provider: Gita Esparza) 0836 (Given - Provider: Elle Ron, CHRIS) atenolol (TENORMIN) tablet 75 mg 75 mg, oral, DAILY, First dose (after last modification) on Wed11/29/09 at 0900, Until Discontinued, Routine 0830 (Given - Provider: Elle Ron, CHRIS) citalopram (CELEXA) tablet 40 mg 40 mg, oral, DAILY, First dose on Wed11/21/09 at 0900, Until Discontinued, Routine 0807 (Given - Provider: Gita Esparza) 0836 (Not Given - Provider: Elle Ron RN - Reason: Medication not available - Comment: I have 20 mg only, need total of 40mg.) 0830 (Given - Provider: Elle Ron RN) fluticasone-salmeterol (ADVAIR) 500-50 mcg/Dose diskus inhaler 1 Puff (CANCELED) 1 Puff, inhalation, 2 TIMES DAILY, First dose on Wed11/21/09 at 0900, Until Discontinued, Routine 0807 (Given - Provider: Giat Esparza)2051 (Given - Provider: Gume Frias, CHRIS) 0836 (Given - Provider: Elle Ron RN)2047 (Given - Provider: Sandra Mcgee) 0830 (Given - Provider: Elle Ron RN) hydrocortisone (ANUSOL-HC) 2.5 % rectal cream (CANCELED) rectal, 2 TIMES DAILY, First dose on Wed11/25/09 at 1000, Until Discontinued 08 (Given - Provider: Gita Esparza)2051 (Given - Provider: Gume Frias, CHRIS) 0836 (Not Given - Provider: Elle Ron RN - Reason: Patient/family refused)2099 (Not Given - Provider: Sandra Mcgee - Reason: Patient/family refused) 0830 (Given - Provider: Elle Ron RN) hydrocortisone 0.5 % cream (CANCELED) topical (top), 3 TIMES DAILY, First dose on Wed11/24/09 at 2100, Until Discontinued 0807 (Given - Provider: Gita Esparza)1305 (Not Given - Provider: Gita Esparza - Reason: Patient/family refused - Comment: pt reports rash is mostly gone)2100 (Not Given - Provider: Gume Frias, CHRIS - Reason: Patient/family refused - Comment: states rash is resolved) 0836 (Given - Provider: Elle Ron RN)1400 (Not Given - Provider: Elle Ron RN - Reason: Patient/family refused)2100 (Not Given - Provider: Sandra Mcgee - Reason: Patient/family refused) 0830 (Not Given - Provider: Elle Ron RN - Reason: Patient/family refused) methylphenidate (RITALIN SR; METADATE ER; METHYLIN ER) ER tablet 20 mg 20 mg (10 mg), oral, 2 TIMES DAILY, First dose on Wed11/25/09 at 1330, Until Discontinued, Routine 0807 (Given - Provider: Gita Esparza)1305 (Given - Provider: Gita Esparza) 0836 (Given - Provider: Elle Ron RN)1300 (Given - Provider: Elle Ron RN) 0830 (Given - Provider: Elle Ron RN) nicotine (NICODERM CQ) 21 mg/24 hr patch 1 Patch (CANCELED) 1 Patch, transdermal, DAILY, First dose on Wed11/27/09 at 1015, Until Discontinued, Routine 1138 (Not Given - Provider: Gita Esparza - Reason: Patient/family refused - Comment: pt will wear patch after 2nd smoke break) 0836 (Not Given - Provider: Elle Ron RN - Reason: Patient/family refused) 0830 (Given - Provider: Elle Ron RN) pregabalin (LYRICA) capsule 150 mg 150 mg, oral, 3 TIMES DAILY, First dose on Wed11/21/09 at 0900, Until Discontinued, Routine 0808 (Given - Provider: Gita Esparza)1431 (Given - Provider: Gita Esparza)2130 (Given - Provider: Gume Frias, CHRIS) 0836 (Given - Provider: Elle Ron RN)1400 (Given - Provider: Elle Ron RN)2049 (Given - Provider: Sandra Mcgee) 0830 (Given - Provider: Elle Ron RN) tizanidine (ZANAFLEX) tablet 10 mg 10 mg, oral, AT BEDTIME, First dose on [place] 11/21/09 at 2100, Until Discontinued, Routine 2130 (Given - Provider: Gume Frias RN) 2048 (Given - Provider: Sandra Mcgee) PRN Medication Order 11/27/2009 11/28/2009 11/29/2009 acetaminophen (TYLENOL) tablet 650 mg (CANCELED) 650 mg, oral, EVERY 4 HOURS PRN, Starting on Wed11/22/09 at 0647, Until Wed11/29/09 at 1537, Pain, Routine 0700 (Given - Provider: Gita Esparza) diazepam (VALIUM) tablet 5 mg 5 mg, oral, EVERY 6 HOURS PRN, Starting on Wed11/22/09 at 1041, Until Wed11/29/09 at 1537, Anxiety, Routine 0605 (Given - Provider: Rachel Devine)1306 (Given - Provider: Gita Esparza)2046 (Given - Provider: Gume Frias RN) 0352 (Given - Provider: Rachel Devine)1252 (Given - Provider: Elle Ron RN)192 (Given - Provider: Elizabeth Thomas, CHRIS) 0130 (Given - Provider: Candy Dotson)0710 (Given - Provider: Candy Dotson) hydrocodone-acetaminop hen (LORTAB;VICODIN) 5-500 mg per tablet 1 Tab 1 Tablet, oral, EVERY 6 HOURS PRN, Starting on Wed11/22/09 at 1039, Until Wed11/29/09 at 1537, Pain, Routine 0606 (Given - Provider: Rachel Devine)1306 (Given - Provider: Gita Esparza) 0040 (Given - Provider: Rachel Devine)0643 (Given - Provider: Rachel Devine)1251 (Given - Provider: Elle Ron RN)193 (Given - Provider: Elizabeth Thomas, CHRIS - Comment: chronic hip pain) 0130 (Given - Provider: Candy Dotson)0710 (Given - Provider: Candy Dotson) menthol-cetylpyridiniu m (CEPACOL) 3 mg lozenge 1 Lozenge (CANCELED) 1 Lozenge, buccal, PRN, Starting on 11/27/09 at 2056, Until Wed11/29/09 at 1537, Pain, Routine 1809 (Given - Provider: Sandra Mcgee) sumatriptan (IMITREX) tablet 50 mg (CANCELED) 50 mg, oral, DAILY PRN, Starting on [place] 11/21/09 at 0640, Until Wed11/29/09 at 1537, Migraine, Routine 1930 (Given - Provider: Elizabeth Thomas RN - Comment: GABRIEL 06/22) zolpidem (AMBIEN) tablet 10 mg (CANCELED) 10 mg, oral, AT BEDTIME PRN, Starting on Cay[place] 11/21/09 at 0636, Until Wed11/29/09 at 1537, Sleep, Routine 0041 (Given - Provider: Rachel Devine) 0130 (Given - Provider: Candy Dotson) documented in this encounter Orders Medications Ordered That Victor Manuel ht Not Have Been Administered Count Last Ordered Date First Ordered Date nicotine (NICODERM CQ) patch Removal 1 11/11 albuterol (PROVENTIL HFA, VE NTOLIN HFA) inhaler 2 Puff 1 11/21/2009 ibuprofen (MOTRIN) tablet 400 mg 1 11/22/19 10 loperamide (IMODIUM) capsule 2 mg 1 010 nicotine inhaler (delivery device) 1 2009 ondansetron (ZOFRAN-ODT) dis integrating tablet 4 mg 1 11/21/2009 lorazepam (ATIVAN) injection 0.5 mg 1 11/20 Diet Count Last Ordered Date First Orde red Date DIET REGULAR 1 11/21/2009 Nursing Count Last Ordered Date First Orde red Date DIET MESSAGE 1 11/25/2009 INSERT PERIPHERAL IV 1 11/20/2009 Respiratory Care Count Last Ordered Date First Ordered Date DRY POWDERED INHALER 1 11/21/2009 Behavioral Health Services Count Last Ordered D ate First Ordered Date LOCUS RISK OF HARM 1 11/21/2009 OBSERVATION LEVEL 1 11/21/2009 RESTRICTIONS 1 11/21/2009 VOLUNTARY/INVOLUNTARY 1 11/21/2009 Admission Count Last Ordered Date First Orde red Date NOTIFY PPS OF DISCHARGE COMPLETE 1 11/30/19 10 ADMIT TO INPATIENT 2 11/21/2009 PPS NOTIFICATION OF PATIENT ARRIVAL ON UNIT 1 11/21/2009 Transfer Count Last Ordered Date First Orde red Date CHANGE ATTENDING TO: 1 11/21/2009 Discharge Count Last Ordered Date First Orde red Date DISCHARGE PATIENT 1 11/29/2009 documented in this encounter Care Teams Manufacturing Intern Relationship Specialty Start Date End Date Moi Munoz MD [address] [place] [id number] PCP - General 12/31/08 documented as of this encounter
--- OUTSIDE RECORDS SUMMARY | 2024-06-10 07:36 | XMS_ITS | Encounter Summary ---
Author Organization [facility] Address [address] [place] [address] Care Team Providers Care Security Infrastructure Engineer Name Role Phone Jean Munoz MD Primary Care Provider Encounter Details Date Type Department Care Team (Late st Contact Info) Description 10/16/2009 Orders Only [address] [address] Jean Munoz MD [address] [place] [address] Hip pain (Primary Dx) Social History Tobacco Use [...] on file documented as of this encounter Progress Notes * Jean Munoz MD - 10/16/2009 1136 EST See for PE 06/21, since then saw Ortho for hip pain, L-spine MRI ordered on paper 09/28/2009. Yesterday I spoke With Kriss Vick in our office at [facility], she was contacted by Radiology stating we needed to do order in [facility]. Order done, please contact Radiology to schedule. documented in this encounter Plan of Treatment Upcoming Encounters Date Type Department Care Team (Late st Contact Info) Description 06/29/2024 14:15 EDT Office Visit [facility] [address] [place] [address] Jean Munoz MD [address] [place] [address] documented as of this encounter Visit Diagnoses Diagnosis Hip pain- Primary Pain in joint, pelvic region and thigh Screening for osteoporosis- Primary Special screening for osteoporosis Primary narcolepsy without cataplexy Chronic pain syndrome Chronic low back pain Lumbago Chronic use of opiate for therapeutic purpose Pain medication agreement Encounter for long-term (current) use of other medications Screen for colon cancer Special screening for malignant neoplasms, colon documented in this encounter Care Teams Security Infrastructure Engineer Relationship Specialty Start Date End Date Jean Munoz MD [address] [place] [phone] PCP - General 12/31/08 documented as of this encounter
--- OUTSIDE RECORDS SUMMARY | 2024-06-10 07:36 | XMS_ITS | Encounter Summary ---
Author Organization [facility] Address [address] [place] [address] Care Team Providers Care Motor Teacher Name Role Phone Jean Munoz MD Primary Care Provider Reason for Visit * Reason Onset Date Comments Nausea 11/20/2009 Encounter Details Date Type Department Care Team (Late st Contact Info) Description 11/20/[address] [facility] [address] [place] [address] Shell Williamson LPN Nausea Social History Tobacco Use Types Packs/Day [...] on file documented as of this encounter Miscellaneous Notes * Telephone Encounter - Jean Munoz MD - 11/20/2009 1241 EST Agree with nursing note * Telephone Encounter - Shell Williamson - 11/20/2009 1118 EST Nausea and vomiting x 2 weeks. ER x 3. Was rx with zofran with out benefit. Also having diarrhea. [place] been out of state. Depressed, states if not feeling better will injure herself.. No openings. Spoke with Dr. Munoz. requests that pt. Be seen in the ER. Pt was notified and agrees. ER notified that pt will be going to there. FYI documented in this encounter Plan of Treatment Upcoming Encounters Date Type Department Care Team (Late st Contact Info) Description 06/29/2024 14:15 EDT Office Visit [facility] Medicine [facility] [address] [place] [address] Jean Munoz MD [address] [place] [phone] documented as of this encounter Visit Diagnoses Not on filedocumented in this encounter Care Teams Motor Teacher Relationship Specialty Start Date End Date Jean Munoz MD [address] [place] [phone] PCP - General 12/31/08 documented as of this encounter
--- OUTSIDE RECORDS SUMMARY | 2024-06-10 07:36 | XMS_ITS | Encounter Summary ---
Author Organization [facility] Address [address] [place] [address] Care Team Providers Care Carpenter Repairer Name Role Phone Jean Munoz MD Primary Care Provider Encounter Details Date Type Department Care Team (Late st Contact Info) Description 12/09/2009 9:37 EDT - 12/11/2009 23:59 EDT Hospital Encounter [address] [address] Joanie Ngo MD [address] [facility] [address] [place] [address] Discharge Disposition: Still a Patient Social History Tobacco Use Types Packs/Day Years [...] 11/29/2009 12/12/2009 documented as of this encounter Discharge Disposition Disposition Code Departure Means Destination Still a Patient documented in this encounter Plan of Treatment Upcoming Encounters Date Type Department Care Team (Late st Contact Info) Description 06/29/2024 14:15 EDT Office Visit [facility] [address] [place] [address] Jean Munoz MD [address] [place] [phone] documented as of this encounter Visit Diagnoses Not on filedocumented in this encounter Care Teams Carpenter Repairer Relationship Specialty Start Date End Date Jean Munoz MD [address] [place] [phone] PCP - General 12/31/08 documented as of this encounter
--- OUTSIDE RECORDS SUMMARY | 2024-06-10 07:36 | XMS_ITS | Encounter Summary ---
Author Organization [facility] Address [address] [place] [address] Care Team Providers Care Campaign Management Specialist Name Role Phone Jean Munoz MD Primary Care Provider Reason for Visit * Reason Comments Leg Pain taking pain meds mor e frequently than prescribed Leg Swelling left leg knee to ank le no known injury Encounter Details Date Type Department Care Team (Late st Contact Info) Description 12/31/2009 11:00 EDT Office Visit [facility] Family Medicine [address] [address] Unknown, Provider, Amanda Campbell MD Strain of Achilles tendon; Left sided sciatica Social History Tobacco Use Types Packs/Day Years Used Date Smoking Tobacco: Every Day Cigarettes 0.5 30 Comments:quit 2, Rx verin icline x3 months, smoking again [...] Sign Reading Time Taken Comments Blood Pressure 106/70 12/31/2009 1116 EDT Pulse 102 12/31/2009 1116 EDT Temperature 36.7 ??C (98.1 ??F) 12/31/2009 1116 EDT Respiratory Rate - - Oxygen Saturation - - Inhaled Oxygen Concentration - - Weight 80.9 kg (178 lb 6.4 oz) 12/31/2009 1116 E DT Height - - Body Mass Index 30.09 11/21/2009 0300 EST documented in this encounter Functional Status Cognitive Status Response Date of Assessm ent Because of a physical, menta l, or emotional condition, do you have serious difficulty concentrating, remembering, or making decisions? (5 years old or older) Yes 11/21/2009 documented as of this encounter Patient Instructions * Patient Instructions* Amanda Campbell MD - 12/31/2009 11:54 EDT Reschedule MRI Reschedule appt with Dr. Dewitt Acetaminophen for pain May use crutches as needed until MRI results known/pain improves Ice to achilles. try ROM exercises documented in this encounter Progress Notes * Amanda Campbell MD - 01/01/20104 EDT [place] [address] [place] [address] PROGRESS/FOLLOWUP NOTE - 12/31/2009 CHIEF COMPLAINT: Leg pain. SUBJECTIVE: The patient complaints of left leg pain and right Achilles pain for approximately 2 weeks. No known trauma but has been walking for the last 2 weeks approximately a mile [place] to the busto go to her classes. Pain is better with heat or taking a hot bath but currently no tub available.It is worse with walking and she feels it is constant at 10/10. Denies SOB, leg redness or warmth. The patient feels she requires more narcotics for this severe pain admits she has been taking 6 vicodin a day instead of 4 due to the pain. Also was given crutches to use, which are helping. Has low back pain (see previous notes) with workup in progress but patient needs to reschedule bothMRI and appointment with Dr Dewitt. Denies increase of low back pain, any bladder or bowel symptoms. OBJECTIVE: The patient seated but when stands leans on exam table or uses crutches to walk out of the office. Right leg appears normal and ankle/foot notable for slightly swollen Achilles tendon, which is tender to the touch. Good range of motion. Left leg appears normal with no obvious signs of tra tano/ecchymosis. The patient describes discomfort with palpation to almost entire leg but with distraction pain is reproducible on calf. no cord. No obvious edema, no pitting. Strength difficult to assess due to pain with resistence, discomfort with hip range of motion. Positive SLR on the left at 60 degrees. Back notable for point tenderness over lumbar spine and left sacroiliac joint. ASSESSMENT: 1. Right Achilles tendinitis. PLAN: --May use ice, heat and gentle ROM. The patient unable to take NSAIDs but can use acetaminophen. Discussed options for decreased hill climbing. -- The patient asked for refill of Vicodin but was given 52 on 12/26 so no additional medication prescribed. Has followup with Dr Munoz 01/09 and will need to call him if additional meds needed. 2. Left leg pain - sciatica. workup for low back pain in progress. PLAN: -- Needs to reschedule MRI and appointment with Dr Dewitt. Pain medications as noted above. use crutches p.r.n. Electronically Signed by Amanda Campbell MD 01/01/2010 21:24 Amanda Campbell MD - Amanda Campbell MD - [facility] Job ID: Doc ID: [id number] [facility] Doc ID: [id number] cc: * Amanda Campbell MD - 12/31/2009 1355 EDT This office note has been dictated. documented in this encounter Plan of Treatment Upcoming Encounters Date Type Department Care Team (Late st Contact Info) Description 06/29/2024 14:15 EDT Office Visit [address] [address] Jean Munoz MD [address] [place] [phone] documented as of this encounter Visit Diagnoses Diagnosis Strain of Achilles tendon Other ankle sprain and strain Left sided sciatica Sciatica Screening for osteoporosis- Primary Special screening for osteoporosis Primary narcolepsy without cataplexy Chronic pain syndrome Chronic low back pain Lumbago Chronic use of opiate for therapeutic purpose Pain medication agreement Encounter for long-term (current) use of other medications Screen for colon cancer Special screening for malignant neoplasms, colon documented in this encounter Care Teams Campaign Management Specialist Relationship Specialty Start Date End Date Jean Munoz MD [address] [place] [phone] PCP - General 12/31/08 documented as of this encounter
--- OUTSIDE RECORDS SUMMARY | 2024-06-10 07:36 | XMS_ITS | Encounter Summary ---
Author Organization [facility] Address [address] [place] [address] Care Team Providers Care Gas Brazer Name Role Phone Jean Munoz MD Primary Care Provider Reason for Visit * Reason Comments Nausea Patient present from 8 day history of N/V/D LUQ abdominal pain feeling weak. S/P bronchitis Encounter Details Date Type Department Care Team (Late st Contact Info) Description 11/15/2009 19:48 EST - 11/16/2009 8:46 EST Emergency [facility] Emergency Department - [address] [id number] Rubio Marquez MD Sheeser, Noe Tony MD [address] [place] [address], [address] [place] [address] Emergency, MD Ismael Vomiting; Diarrhea Discharge Disposition: Home or Self Care Social [...] Sign Reading Time Taken Comments Blood Pressure 107/72 11/16/2009 0656 EST Pulse 64 11/16/2009 0656 EST Temperature 36.3 ??C (97.3 ??F) 11/16/2009 0243 EST Respiratory Rate 12 11/16/2009 0656 EST Oxygen Saturation 99% 11/16/2009 0656 EST Inhaled Oxygen Concentration - - Weight - - Height - - Body Mass Index - - documented in this encounter Discharge Instructions * Discharge Instructions* Rubio Marquez MD - 11/15/2009 22:01 EST Images from the original note were not included. [facility] Patient Instructions Return to ER if your symptoms worsen. Diarrhea in Adults: After Your Visit Your Care Instructions Diarrhea is loose, watery stools (bowel movements). The exact cause of diarrhea is often hard to find. Sometimes diarrhea is your body's way to get rid of what caused an upset stomach. Viruses, food poisoning, and many medicines can cause diarrhea. Some people get diarrhea in response to emotional stress, anxiety, or certain foods. Almost everyone has diarrhea now and then. It usually is not serious, and your stools will return to normal soon. The important thing to do is replace the fluids you have lost to prevent dehydration. Follow-up care is a horton part of your treatment and safety. Be sure to make and go to all appointments, and call your doctor if you are having problems. It???s also a good idea to know your test results and keep a list of the medicines you take. How can you care for yourself at home? ?? Watch for signs of dehydration, which means your body has lost too much water. Dehydration is a serious condition and should be treated right away. Signs of dehydration are: ?? Increasing thirst and dry eyes and mouth. Feeling faint or lightheaded. Darker urine, and a smaller amount of urine than normal. ?? Drink plenty of fluids to prevent dehydration. Stick to water, rehydration drinks such as Gatorade or Powerade, and other caffeine-free clear liquids until you feel better. If you have kidney, heart, or liver disease and have to limit fluids, talk with your doctor before you increase your fluid intake. Begin eating small amounts of mild foods the next day, if you feel like it. ?? Try yogurt that has live cultures of Lactobacillus (check the label). Avoid spicy foods, fruits, alcohol, and caffeine until 48 hours after all symptoms go away. Avoid chewing gum that contains sorbitol. Avoid dairy products (except for yogurt with Lactobacillus) while you have diarrhea and for 3 days after symptoms go away. ?? The doctor may recommend that you take bihj-uvq-ecxyshi medicine, such as loperamide (Imodium), if you still have diarrhea after 6 hours. Read and follow all instructions on the label. Do not use this medicine if you have bloody diarrhea, a high fever, or other signs of serious illness. Call your doctor if you think you are having a problem with your medicine. When should you call for help? Call 911 anytime you think you may need emergency care. For example, call if: ?? You passed out (lost consciousness). You pass maroon or very bloody stools. Call your doctor now or seek immediate medical care if: ?? You are dizzy or lightheaded, or you feel like you may faint. Your stools are black and tarlike or have streaks of blood. You have diarrhea and your belly pain or cramps are worse. You have signs of needing more fluids. You have sunken eyes, a dry mouth, and pass only a little dark urine. Watch closely for changes in your health, and be sure to contact your doctor if: ?? You have 12 or more loose stools in 24 hours. You see pus in the diarrhea. You have a new or higher fever. Your diarrhea does not get better or is more frequent. Where can you learn more? Go to www.[facility].net/fahc Enter W335 in the search box to learn more about Diarrhea in Adults: After Your Visit. ?? 2005 - 2008 [employer]. Care instructions adapted under license by [facility] . This care instruction is for use with your licensed healthcare professional. If you have questions about a medical condition or this instruction, always ask your healthcare professional. [employer] disclaims any warranty or liability for your use of this information. documented in this encounter Medications at Time of Discharge Medication Sig Dispensed Refills Start Date End Date ALBUTEROL INHL Inhale 2 Puffs as directed 2 times daily as needed. 08/11/2010 atenolol (TENORMIN) 100 mg tablet Take 100 mg by mouth daily. 12/12/2009 atenolol (TENORMIN) 50 mg tablet Take 50 mg by mouth at bedtime. 11/21/2009 citalopram (CELEXA) 40 mg tablet Take 40 mg by mouth daily. 12/12/2009 docusate sodium (COLACE) 100 mg capsule Take 100 mg by mouth as needed for Constipation. 11/21/2009 fexofenadine (JUDITH) 180 mg tablet Take 180 mg by mouth daily. 11/21/2009 fluticasone-salmeterol (ADVAIR DISKUS) 500-50 mcg/Dose diskus inhaler Inhale as directed 2 times daily. 05/08/2010 hydrocodone-acetaminophen (LORTAB) 5-500 mg Tab Take 1 Tab by mouth. 4 times a day for hip arthritic pain 11/21/2009 hydrocodone-acetaminophen (VICODIN) 5-500 mg per tablet Take 1 Tab by mouth 5 times daily. 11/21/2009 methylphenidate (RITALIN SR) 20 mg SR tablet Take 2 Tabs by mouth. Frequency: every morning. 11/21/2009 methylphenidate (RITALIN) 20 mg tablet Take 20 mg by mouth 2 times daily. 11/21/2009 METHYLPHENIDATE HCL (RITALIN SR ORAL) Take 10 mg by mouth. Frequency: every noon. 11/21/2009 MOMETASONE FUROATE (NASONEX NASL) by Nasal route as needed. 11/21/2009 ondansetron (ZOFRAN) 4 mg tablet Take 1 Tab by mouth every 8 hours as needed for Nausea. 10 Tab 0 11/15/2009 11/29/2009 ondansetron (ZOFRAN-ODT) 4 mg disintegrating tablet Take 1 Tab by mouth every 8 hours as needed for Nausea. 10 Tab 0 11/15/2009 11/21/2009 oxycodone-acetaminophen (PERCOCET) 5-325 mg per tablet Take 1 Tab by mouth every 6 hours as needed for Pain. 25 0 04/04/2009 11/21/2009 predniSONE (DELTASONE) 20 mg tablet Take 20 mg by mouth as needed. 11/21/2009 pregabalin (LYRICA) 100 mg capsule Take 100 mg by mouth 3 times daily. 11/21/2009 pregabalin (LYRICA) 150 mg capsule Take 150 mg by mouth 3 times daily. 04/08/2010 promethazine (PHENERGAN) 25 mg tablet Take 25 mg by mouth as needed. 11/21/2009 PSYLLIUM SEED/SUCROSE (FIBER ORAL) Take by mouth daily. Dose: take 1. 11/21/2009 ropinirole (REQUIP) 1 mg tablet Take 1 mg by mouth at bedtime. 11/21/2009 ropinirole (REQUIP) 4 mg tablet Take 4 mg by mouth at bedtime. 11/21/2009 SENNOSIDES (SENEXON ORAL) Take 2 Tabs by mouth at bedtime. 11/21/2009 sumatriptan (IMITREX) 50 mg tablet Take 50 mg by mouth as needed for Migraine. 11/21/2009 sumatriptan (IMITREX) 50 mg tablet Take 50 mg by mouth once as needed for Migraine. Gets 9 tabs a month and uses them all 08/11/2010 tizanidine (ZANAFLEX) 4 mg tablet Take 4 mg by mouth at bedtime. 11/21/2009 TIZANIDINE HCL (TIZANIDINE ORAL) Take 10 mg by mouth at bedtime. 11/29/2009 zolpidem (AMBIEN) 10 mg tablet Take 1 Tab by mouth at bedtime as needed for Sleep. 90 Tab 0 10/31/2009 11/29/2009 documented as of this encounter Ordered Prescriptions Prescription Sig Dispensed Refills Start Date End Da te ondansetron (ZOFRAN) 4 mg tablet Take 1 Tab by mouth every 8 hours as needed for Nausea. 10 Tab 0 11/15/2009 11/29/2009 ondansetron (ZOFRAN-ODT) 4 mg disintegrating tablet Take 1 Tab by mouth every 8 hours as needed for Nausea. 10 Tab 0 11/15/2009 11/21/2009 documented in this encounter Discharge Disposition Disposition Code Departure Means Destination Home or Self Care documented in this encounter ED Notes * Sima Tran - 11/16/2009 0703 EST Report to and care trans to Noemy Curiel RN * Sima Tran - 11/16/2009 0657 EST Assisted pt to call for ride, pt left message * Sima Tran - 11/16/2009 0648 EST Pt reports feeling better * Sima Tran - 11/16/2009 0647 EST Awakened pt, pt with brick carrier in room, calling for ride * Sima Tran - 11/16/2009 0524 EST Report received; pt reportedly dc'd, sleeping, awaiting ride; * Gina Newberry RN - 11/16/2009 0503 EST Sleeping, not disturbed. * Gina Newberry RN - 11/16/2009 0359 EST Pt to be discharged; unable to contact roommate at this time, will try again later. No nausea, sipping on soda, provided with meal of sandwich and fruit. * Keaton Ayala - 11/16/2009 0244 EST Pt resting with eyes closed. Rouses to verbal stimuli. Pt reports a decrease in pain. Pt reports a continued inability to contact ride home. Pt declined to call roommate with this RN present. Plan todischarge patient with ride discussed with patient and the patient verbalized an understanding. * Noe Khalil MD - 11/16/2009 0139 EST DOS: 11/15/2009 Chief Complaint Patient presents with ??? Nausea Patient present from 8 day history of N/V/D LUQ abdominal pain feeling weak. S/P bronchitis HPI Review of Systems Past Medical History Diagnosis [...] Grandmother ??? Heart Attack Maternal Grandmother BP 106/79 Pulse 66 Temp(Src) 36.5 ??C (97.7 ??F) (Oral) Resp 16 SpO2 98% Physical Exam Radiology orders: None Procedures ED Course: 11/16/2009 1:39 AM: The pt feels better, though now she is itching, bilateral legs. No hives or trouble breathing. Has had sig resolution of abdominal pain, but now is complaining of worsening of her chronic neck pain. Has a reassuring belly exam. Now she is concerned that she cannot get a ride to [place] and wonders if she will need to spend the night. Discharge Prescriptions New Prescriptions ONDANSETRON (ZOFRAN) 4 MG TABLET Take 1 Tab by mouth every 8 hours as needed for Nausea. ONDANSETRON (ZOFRAN-ODT) 4 MG DISINTEGRATING TABLET Take 1 Tab by mouth every 8 hours as needed forNausea. MDM Number of Diagnoses and Management Options Diarrhea: Vomiting: General comments: 0 Encounter Diagnoses Code Name Primary? Qualifier ??? 787.03B Vomiting ??? 787.91 Diarrhea PCP: Jean Munoz MD 11/16/2009 1:39 AM * Keaton Ayala - 11/16/2009 0018 EST Pt reports returning of nausea and pain. Third liter of NS completed. Will discuss with Dr. Khalil. * Siena Rivera RN - 11/15/[address] Khalil aware of 4+ Ketones in urine. 3rd liter of fluid ordered * Rubio Marquez MD - 11/15/2009 2151 EST DOS: 11/15/2009 Chief Complaint Patient presents with ??? Nausea Patient present from 8 day history of N/V/D LUQ abdominal pain feeling weak. S/P bronchitis Patient is a 48 y.o. female presenting with vomiting. The history is provided by the patient. Emesis This is a new problem. Episode Onset: 1 week ago. The problem occurs 2 to 4 times per day. The problem has not changed since onset. The vomit appears to be stomach contents. The maximum temperature recorded by the patient prior to her arrival was 101 to 101.9 F. Associated symptoms include myalgiasand cough (improving). Pertinent negatives include no chills, no fever, no abdominal pain and no diarrhea. Risk factors: no ill contacts, suspect food, travel. 1 weeks of vomiting and diarrhea. States not eating, not keeping anything down. No apparent precipitating causes. Review of Systems Constitutional: Negative for fever and chills. HENT: Negative for congestion, sore throat and rhinorrhea. Eyes: Negative for discharge. Respiratory: Positive for cough (improving). Cardiovascular: Negative for chest pain. Gastrointestinal: Positive for nausea and vomiting. Negative for abdominal pain and diarrhea. Genitourinary: Negative for dysuria and difficulty urinating. Musculoskeletal: Positive for myalgias. Skin: Negative for rash. Neurological: Positive for dizziness and light-headedness. Negative for speech difficulty, weaknessand numbness. Psychiatric/Behavioral: Negative for confusion. Past Medical History Diagnosis Date ??? UTI 11/20/99 ??? Pharyngitis 02/10/00 ??? Vaginitis 03/03/00 ??? URI (upper respiratory infection) 08/04/00 ??? Shoulder pain 01/11/01 ??? Conjunctivitis 08/24/01 ??? Sinusitis 10/10/01 ??? Bronchitis 10/10/01 ??? Glucosuria 05/01/03 ??? Pelvic pain in female 10/24/03 ??? Urinary frequency 12/11/03 ??? Malaise and fatigue 12/11/03 ??? Constipation 03/18/04 ??? Otalgia 03/18/04 ??? Abdominal pain 08/26/04 ??? Fever 12/14/04 ??? Gastroenteritis 09/15/04 ??? Knee pain 10/03/04 [...] Grandmother ??? Heart Attack Maternal Grandmother BP 97/61 Pulse 74 Temp(Src) 36.5 ??C (97.7 ??F) (Oral) Resp 16 SpO2 95% Physical Exam Nursing note and vitals reviewed. Constitutional: She is oriented. She appears well-developed and well-nourished. No distress. HENT: Mouth/Throat: Oropharynx is clear and moist. Eyes: Conjunctivae are normal. Cardiovascular: Normal rate, regular rhythm and normal heart sounds. No murmur heard. Pulmonary/Chest: Effort normal and breath sounds normal. Abdominal: Soft. Bowel sounds are normal. No tenderness. Neurological: She is alert and oriented. Skin: Skin is warm and dry. No rash noted. Psychiatric: She has a normal mood and affect. Radiology orders: None Procedures ED Course: No clearly etiology for symptoms. Unable to provide stool sample here, but states they did take a stool sample 2 days ago in [facility]. Labs normal except low potassium--given 20 meq here. To follow-up with PCP Wednesday, return here if unable to hold down fluids at home. Discharged with zofran. Discharge Prescriptions New Prescriptions ONDANSETRON (ZOFRAN) 4 MG TABLET Take 1 Tab by mouth every 8 hours as needed for Nausea. ONDANSETRON (ZOFRAN-ODT) 4 MG DISINTEGRATING TABLET Take 1 Tab by mouth every 8 hours as needed forNausea. MDM Number of Diagnoses and Management Options Diarrhea: new, needed workup Vomiting: new, needed workup General comments: 4 Encounter Diagnoses Code Name Primary? Qualifier ??? 787.03B Vomiting ??? 787.91 Diarrhea PCP: Jean Munoz MD 11/15/2009 10:07 PM documented in this encounter Miscellaneous Notes * Scanned Note-Null - Inpatient, Physician - 11/19/2009 0818 EST * Scanned Note-Null - Inpatient, Physician - 11/16/2009 0522 EST documented in this encounter Plan of Treatment Upcoming Encounters Date Type Department Care Team (Late st Contact Info) Description 06/29/2024 14:15 EDT Office Visit [facility] Medicine [facility] [address] [place] [address] Jean Munoz MD [address] [place] [phone] documented as of this encounter Procedures Procedure Name Priority Date/Time Associated Diagnosis Comments POCT URINE DIPSTICK, CLINITEK STAT 11/15/2009 23:03 EST COMPLETE BLOOD COUNT AND DIFFERENTIAL STAT 11/15/2009 21:03 EST BUN STAT 11/15/2009 21:03 EST LIPASE STAT 11/15/2009 21:03 EST CREATININE STAT 11/15/2009 21:03 EST HEPATIC FUNCTION PANEL (ALB,ALK PHOS,ALT,AST,DBIL,TOT MALENA,TOT PROT) STAT 11/15/2009 21:03 EST ELECTROLYTES STAT 11/15/2009 21:03 EST documented in this encounter Results * (ABNORMAL) POCT URINE DIPSTICK (11/15/2009 23:03 EST) Color, UA Lisette POINT OF CARE Clarity, UA Clear POINT OF CARE Glucose, UA Negative Negative, Trace mg/dL POINT OF CARE Bilirubin, UA 2+(A) Negative POINT OF CARE Ketones, UA 4+(A) Negative mg/dL POINT OF CARE Comment:Dr Khalil aware Spec Grav, UA >1.030(A) 1.010, 1.015, 1.020, 1.025 POINT OF CARE Blood, UA Negative Negative POINT OF CARE pH, UA 6.0 4.6 - 8.0 POINT OF CARE Protein, UA 1+(A) Negative mg/dL POINT OF CARE Urobilinogen, UA 1.0 2.0 E.U./dL POINT OF CARE Nitrite, UA Negative Negative POINT OF CARE Leuk Esterase Negative Negative POINT OF CARE Comment POINT OF CARE Urine specimen (specimen) 11/15/2009 23:03 EST Rubio Marquez MD POINT OF CARE TEST ORDERABLES POINT OF CARE * (ABNORMAL) HEMAGRAM AND DIFFERENTIAL (11/15/2009 21:03 EST) WBC 6.21 4.0 - 12.4 K/cmm [facility] RBC 4.12 3.86 - 5.04 M/cmm [facility] Hemoglobin 13.2 11.6 - 15.2 gm/dl [facility] HCT 38.2 34.9 - 44.4 % [facility] MCV 93 81 - 98 fl [facility] MCH 32.1 26.7 - 33.3 pg [facility] MCHC 34.6 32.1 - 35.9 gm/dl [facility] PLT 413(H) 141 - 320 K/cmm [facility] RDW-CV 13.6 11.7 - 14.6 % [facility] % Neutrophils 53.1 45.5 - 79.7 % [facility] % Lymphocytes 35.5 15.0 - 46.8 % [facility] % Monocytes 8.7 1.8 - 12.0 % [facility] % Eosinophils 1.9 0.6 - 6.9 % [facility] % Basophils 0.8 0.2 - 1.4 % [facility] ABS Neutrophils 3.29 2.20 - 8.85 K/cmm [facility] ABS Lymphs 2.21 1.09 - 3.30 K/cmm [facility] ABS Monocytes 0.54 0.1 - 0.8 K/cmm [facility] ABS Eosinophils 0.12 0.03 - 0.61 K/cmm [facility] ABS Basophils 0.05 0.01 - 0.11 K/cmm [facility] Type of Diff: Automated [facility] Blood specimen (specimen) 11/15/2009 21:03 EST 11/15/2009 21:07 EST Rubio Marquez MD PACKAGES & DNA PROB E ORDERABLES Performing Organization Address City/State/[facility] Co de Phone Number [facility] [address] [place] [address] * (ABNORMAL) LIVER FUNCTION TESTS (11/15/2009 21:03 EST) Albumin 3.3(L) 3.4 - 4.9 g/dl [facility] Total Protein 6.6 6.5 - 8.3 g/dl [facility] Total Alkaline Phosphatase 56 38 - 126 U/L [facility] ALT 27 9 - 52 U/L [facility] AST 17 15 - 46 U/L [facility] Unconjugated Bilirubin 0.5 0.1 - 1.1 mg/dl [facility] Conjugated Bilirubin 0.0 0.0 - 0.3 mg/dl [facility] Bilirubin, Total 0.5 0.2 - 1.3 mg/dl [facility] Blood specimen (specimen) 11/15/2009 21:03 EST 11/15/2009 21:07 EST Rubio Marquez MD CHEMISTRY & BLOOD G ORDERABLES Performing Organization Address [facility] Co de Phone Number [facility] [address] [place] [address] * LIPASE (11/15/2009 21:03 EST) Lipase 31 0 - 250 U/L [facility] Blood specimen (specimen) 11/15/2009 21:03 EST 11/15/2009 21:07 EST Rubio Marquez MD CHEMISTRY & BLOOD G ORDERABLES Performing Organization Address [facility] Co de Phone Number [facility] [address] [place] [address] * BUN (11/15/2009 21:03 EST) BUN 10 10 - 26 mg/dl [facility] Blood specimen (specimen) 11/15/2009 21:03 EST 11/15/2009 21:07 EST Rubio Marquez MD CHEMISTRY & BLOOD G ORDERABLES Performing Organization Address [facility] Co de Phone Number [facility] [address] [place] [address] * (ABNORMAL) CREATININE (11/15/2009 21:03 EST) Creatinine 0.60(L) 0.7 - 1.5 mg/dl [facility] GFR, Calculated >60 ml/min/1.7 3m2 [facility] Blood specimen (specimen) 11/15/2009 21:03 EST 11/15/2009 21:07 EST Rubio Marquez MD CHEMISTRY & BLOOD G ORDERABLES Performing Organization Address [facility] Co de Phone Number [facility] [address] [place] [address] * (ABNORMAL) ELECTROLYTES (11/15/2009 21:03 EST) Sodium 141 136 - 145 mEq/L [facility] Potassium 3.2(L) 3.5 - 5.0 mEq/L [facility] Chloride 108 96 - 110 mEq/L [facility] CO2 29 24 - 32 mEq/L [facility] Blood specimen (specimen) 11/15/2009 21:03 EST 11/15/2009 21:07 EST Rubio Marquez MD CHEMISTRY & BLOOD G ORDERABLES Performing Organization Address City/State/[facility] Co de Phone Number [facility] [address] [place] [address] documented in this encounter Visit Diagnoses Diagnosis Vomiting Vomiting alone Diarrhea Screening for osteoporosis- Primary Special screening for [...] MAR Action Action Date Dose Rate Site diphenhydrAMINE (BENADRYL) injection 12.5 mg 12.5 mg, intravenous, NOW X1, 1 dose, On 11/16/09 at 0200, STAT Given 11/16/2009 2:00 EST 12.5 mg hydrocodone-acetaminophen (LORTAB;VICODIN) 5-500 mg per tablet 2 Tab 2 Tablet, oral, NOW X1, 1 dose, On 11/16/09 at 0200, STAT Given 11/16/2009 2:00 EST 2 Tablets HYDROmorphone (PF) (DILAUDID) 1 mg/mL injection 2 mg 2 mg, intravenous, NOW X1, 1 dose, On 11/15/09 at 2130, STAT Given 11/15/2009 21:16 EST 2 mg ondansetron (PF) (ZOFRAN) 4 mg/2 mL injection 4 mg 4 mg, intravenous, NOW X1, 1 dose, On 11/15/09 at 2130, STAT Given 11/15/2009 21:16 EST 4 mg ondansetron (PF) (ZOFRAN) 4 mg/2 mL injection 4 mg 4 mg, intravenous, NOW X1, 1 dose, On 3/6/10 at 0100, STAT Given 11/16/2009 0:43 EST 4 mg potassium chloride IVPB 20 mEq/100 mL 20 mEq, intravenous, NOW X1, 1 dose, On Wed11/15/09 at 2200, STAT Given 11/15/2009 22:06 EST 20 mEq sodium chloride 0.9 % 1,000 mL BOLUS 1,000 mL, intravenous, Once (Without Time Specified), 1 dose, Starting on Wed11/15/09 at 2330, Until Wed11/15/09 at 2328, STAT Given 11/15/2009 23:28 EST 1,000 mL sodium chloride 0.9 % 2,000 mL BOLUS 2,000 mL, intravenous, Once (Without Time Specified), 1 dose, Starting on Wed11/15/09 at 2100, Until Wed11/15/09 at 2101, STAT Given 11/15/2009 21:01 EST 2,000 mL documented in this encounter Active and Recently Administered Medications Times are shown in EST. Scheduled Medication Order 11/14/2009 11/15/2009 11/16/2009 diphenhydrAMINE (BENADRYL) injection 12.5 mg (COMPLETED) 12.5 mg, intravenous, NOW X1, 1 dose, On 11/16/09 at 0200, STAT 0200 (Given - Provid er: Keaton Ayala) hydrocodone-acetaminophen (LORTAB;VICODIN) 5-500 mg per tablet 2 Tab (COMPLETED) 2 Tablet, oral, NOW X1, 1 dose, On 11/16/09 at 0200, STAT 0200 (Given - Provid er: Keaton Ayala) HYDROmorphone (PF) (DILAUDID) 1 mg/mL injection 2 mg (COMPLETED) 2 mg, intravenous, NOW X1, 1 dose, On Wed11/15/09 at 2130, STAT 2116 (Given - Provider: Pravin Mccollum, CHRIS) ondansetron (PF) (ZOFRAN) 4 mg/2 mL injection 4 mg (COMPLETED) 4 mg, intravenous, NOW X1, 1 dose, On 11/15/09 at 2130, STAT 2116 (Given - Provider: Pravin Mccollum, CHRIS) ondansetron (PF) (ZOFRAN) 4 mg/2 mL injection 4 mg (COMPLETED) 4 mg, intravenous, NOW X1, 1 dose, On 11/16/09 at 0100, STAT 0043 (Given - Provid er: Keaton Ayala) potassium chloride IVPB 20 mEq/100 mL (COMPLETED) 20 mEq, intravenous, NOW X1, 1 dose, On Wed11/15/09 at 2200, STAT 2206 (Given - Provider: Siena Rivera, CHRIS)2318 (Completed - Provider: Siena Rivera RN) sodium chloride 0.9 % 1,000 mL BOLUS (COMPLETED) 1,000 mL, intravenous, Once (Without Time Specified), 1 dose, Starting on Wed11/15/09 at 2330, Until Wed11/15/09 at 2328, STAT 2328 (Given - Provider: Siena Rivera RN) 0019 (Completed - Provider: Keaton Ayala) sodium chloride 0.9 % 2,000 mL BOLUS (COMPLETED) 2,000 mL, intravenous, Once (Without Time Specified), 1 dose, Starting on Wed11/15/09 at 2100, Until Wed11/15/09 at 2101, STAT 2101 (Given - Provider: Pravin Mccollum RN)2318 (Completed - Provider: Siena Rivera, CHRIS) documented in this encounter Orders Medications Ordered That Victor Manuel ht Not Have Been Administered Count Last Ordered Date First Ordered Date ondansetron (ZOFRAN-ODT) dis integrating tablet 4 mg 1 11/15/2009 Diet Count Last Ordered Date First Orde red Date DIET NPO TIME SPECIFIED 1 11/15/2009 Nursing Count Last Ordered Date First Orde red Date INSERT PERIPHERAL IV 1 11/15/2009 documented in this encounter Care Teams Gas Brazer Relationship Specialty Start Date End Date Jean Munoz MD [address] [place] [phone] PCP - General 12/31/08 documented as of this encounter
--- OUTSIDE RECORDS SUMMARY | 2024-06-10 07:36 | XMS_ITS | Encounter Summary ---
Author Organization [facility] Address [address] [place] [address] Care Team Providers Care Slot Router Name Role Phone Jean Munoz MD Primary Care Provider Reason for Visit * Reason Onset Date Comments Other 12/31/2009 Encounter Details Date Type Department Care Team (Late st Contact Info) Description 12/31/[address] [facility] [address] [place] [address] Jean Munoz MD [address] [place] [phone] Other Social History Tobacco Use [...] Dispensed Refills Start Date End Da te ibuprofen (MOTRIN) 800 mg tablet Take 1 Tab by mouth every 8 hours as needed for Pain. 60 Tab 0 12/31/2009 01/22/2010 documented in this encounter Miscellaneous Notes * Telephone Encounter - Caro Krueger RN - 01/01/2010 1026 EDT Called patient back and gave her below instructions per . She states she is all set and does not need to talk to at this time. She is trying to get an earlier appt with her neurologist as her narcolepsy is not under good control. * Telephone Encounter - Jean Munoz MD - 12/31/2009 1756 EDT Escript done, but please inform patient that she has had hives with ketorolac (Toradol). Ketorolac and ibuprofen are both NSAID's so she may be at risk for hives. I called her at above number, left message to call back. * Telephone Encounter - Caro Krueger RN - 12/31/2009 1501 EDT Note by states to take acetominophen on 12/31/09 appt. There is also another telephone encounter asking for to call her and discuss her appt today. Left a message for her to call RN back with more information. Motrin order pended to * Telephone Encounter - Floresita Mulligan - 12/31/2009 1344 EDT Was told at appt today to take motrin can this be called into pharmacy. She would like either 600mg or 800mg She has not money to buy this over the counter documented in this encounter Plan of Treatment Upcoming Encounters Date Type Department Care Team (Late st Contact Info) Description 06/29/2024 14:15 EDT Office Visit [facility] [address] [place] [address] Jean Munoz MD [address] [place] [phone] documented as of this encounter Visit Diagnoses Not on filedocumented in this encounter Care Teams Slot Router Relationship Specialty Start Date End Date Jean Munoz MD [address] [place] [phone] PCP - General 12/31/08 documented as of this encounter
--- OUTSIDE RECORDS SUMMARY | 2024-06-10 07:36 | XMS_ITS | Encounter Summary ---
Author Organization [facility] Address [address] [place] [address] Care Team Providers Care Cuff Maker Name Role Phone Jean Munoz MD Primary Care Provider Reason for Visit * Reason Onset Date Comments Other 12/31/2009 Encounter Details Date Type Department Care Team (Late st Contact Info) Description 12/31/2009 Telephone [facility] [address] [place] [address] Jean Munoz MD [address] [place] [phone] Other Social History Tobacco Use [...] Miscellaneous Notes * Telephone Encounter - Caro Krueger, RN - 12/31/2009 1416 EDT [phone] is the [facility] who do not know of this patient. Telephone home line is busy with several attempts. * Telephone Encounter - Kamila Henderson - 12/31/2009 1217 EDT PT WOULD LIKE TO SPEAK WITH DR MUNOZ REGARDING HEALTH ISSUES. PLEASE CALL HER 930AM - 245PM. NUMBER [phone] ASK FOR HER. SHE SAW DR LONG TODAY documented in this encounter Plan of Treatment Upcoming Encounters Date Type Department Care Team (Late st Contact Info) Description 06/29/2024 14:15 EDT Office Visit [facility] Medicine [facility] [address] [place] [address] Jean Munoz MD [address] [place] [phone] documented as of this encounter Visit Diagnoses Not on filedocumented in this encounter Care Teams Cuff Maker Relationship Specialty Start Date End Date Jean Munoz MD [address] [place] [phone] PCP - General 12/31/08 documented as of this encounter
--- OUTSIDE RECORDS SUMMARY | 2024-06-10 07:36 | XMS_ITS | Encounter Summary ---
Author Organization [facility] Address [address] [place] [address] Care Team Providers Care Front Line Leader Name Role Phone Jean Munoz MD Primary Care Provider Encounter Details Date Type Department Care Team (Late st Contact Info) Description 09/25/[address] [facility] Program - [address] [place] [address] Alexi Julian MD Social History Tobacco Use Types Packs/Day [...] Office Visit [facility] [place] [address] [place] [address] Jean Munoz MD [address] [place] [phone] documented as of this encounter Procedures Procedure Name Priority Date/Time Associated Diagnosis Comments HIP UNILATERAL 2 OR MORE VIEWS 09/25/2009 13:11 EST HIP UNILATERAL 2 OR MORE VIEWS 09/25/2009 13:11 EST documented in this encounter Results * HIP UNILATERAL 2 OR MORE VIEWS (09/25/2009 13:11 EST) Anatomical Region Laterality Modality Other 09/25/2009 13:1 1 EST 09/25/2009 15:49 EST Narrative 09/25/2009 15:49 EST Both hips ??2 OR MORE VIEWS ??Sep 25, 2009 01:11:00 PM Signs and Symptoms/Comments: ??Bilateral hip pain . Findings: Two views of both hips were obtained the joints are well preserved bilaterally. Bone mineralization is normal. No abnormality is seen the bones, joints, or soft tissues. Impression: Negative hips Procedure Note 09/25/2009 Both hips 2 OR MORE VIEWS Sep 25, 2009 01:11:00 PM Signs and Symptoms/Comments: Bilateral hip pain . Findings: Two views of both hips were obtained the joints are well preserved bilaterally. Bone mineralization is normal. No abnormality is seen the bones, joints, or soft tissues. Impression: Negative hips Alexi Julian MD IMG DIAGNOSTIC IMAGI NG ORDERABLES * HIP UNILATERAL 2 OR MORE VIEWS (09/25/2009 13:11 EST) Anatomical Region Laterality Modality Other 09/25/2009 13:1 1 EST 09/25/2009 15:49 EST Narrative 09/25/2009 15:49 EST Both hips ??2 OR MORE VIEWS ??Sep 25, 2009 01:11:00 PM Signs and Symptoms/Comments: ??Bilateral hip pain . Findings: Two views of both hips were obtained the joints are well preserved bilaterally. Bone mineralization is normal. No abnormality is seen the bones, joints, or soft tissues. Impression: Negative hips Procedure Note 09/25/2009 Both hips 2 OR MORE VIEWS Sep 25, 2009 01:11:00 PM Signs and Symptoms/Comments: Bilateral hip pain . Findings: Two views of both hips were obtained the joints are well preserved bilaterally. Bone mineralization is normal. No abnormality is seen the bones, joints, or soft tissues. Impression: Negative hips Alexi Julian MD IMG DIAGNOSTIC IMAGI NG ORDERABLES documented in this encounter Visit Diagnoses Not on filedocumented in this encounter Care Teams Front Line Leader Relationship Specialty Start Date End Date Jean Munoz MD [address] [place] [phone] PCP - General 12/31/08 documented as of this encounter
--- OUTSIDE RECORDS SUMMARY | 2024-06-10 07:36 | XMS_ITS | Encounter Summary ---
Author Organization [facility] Address [address] [place] [address] Care Team Providers Care Personal Banking Representative Name Role Phone Jean Munoz MD Primary Care Provider Reason for Visit * Reason Onset Date Comments Depression 12/02/2009 Encounter Details Date Type Department Care Team (Late st Contact Info) Description 12/02/[address] [address] Nuvia Colbert LPN Depression Social History Tobacco Use Types Packs/Day Years [...] * Telephone Encounter - Nuvia Colbert - 12/02/2009 1520 EDT FYI Spoke with hayde aquino [facility] Liset has been accepted in program just Needs adequete housing she will be admitted stefan documented in this encounter Plan of Treatment Upcoming Encounters Date Type Department Care Team (Late st Contact Info) Description 06/29/2024 14:15 EDT Office Visit [facility] [address] [place] [address] Jean Munoz MD [address] [place] [phone] documented as of this encounter Visit Diagnoses Not on filedocumented in this encounter Care Teams Personal Banking Representative Relationship Specialty Start Date End Date Jean Munoz MD [address] [place] [phone] PCP - General 12/31/08 documented as of this encounter
--- OUTSIDE RECORDS SUMMARY | 2024-06-10 07:36 | XMS_ITS | Encounter Summary ---
Author Organization [facility] Address [address] [place] [address] Care Team Providers Care Seeing Eye Dog Teacher Name Role Phone Jean Munoz MD Primary Care Provider Encounter Details Date Type Department Care Team (Late Contact Info) Description 11/06/2009 Abstract [facility] - [address] [id number] Cory Dewitt MD [address] [place] [phone] Lumbago; Unspecified neuralgia, neuritis, and radiculitis; Brachial neuritis or radiculitis NOS; Degeneration of cervical intervertebral disc Social History [...] Info) Description 06/29/2024 14:15 EDT Office Visit [facility] Medicine [facility] [address] [place] [address] Jean Munoz MD [address] [place] [phone] documented as of this encounter Visit Diagnoses Diagnosis Lumbago Neuralgia, neuritis, and radiculitis, unspecified Brachial neuritis or radiculitis NOS Brachial neuritis or radiculitis nos Degeneration of cervical intervertebral disc Screening for osteoporosis- Primary Special screening for osteoporosis Primary narcolepsy without cataplexy Chronic pain syndrome Chronic low back pain Lumbago Chronic use of opiate for therapeutic purpose Pain medication agreement Encounter for long-term (current) use of other medications Screen for colon cancer Special screening for malignant neoplasms, colon documented in this encounter Care Teams Seeing Eye Dog Teacher Relationship Specialty Start Date End Date Jean Munoz MD [address] [place] [phone] PCP - General 12/31/08 documented as of this encounter
--- OUTSIDE RECORDS SUMMARY | 2024-06-10 07:36 | XMS_ITS | Encounter Summary ---
Author Organization [facility] Address [address] [place] [address] Care Team Providers Care Athletic Gear Custodian Name Role Phone Jean Munoz MD Primary Care Provider Encounter Details Date Type Department Care Team (Late st Contact Info) Description 12/12/2009 12:26 EDT - 12/12/2009 23:59 EDT Hospital Encounter [address] [address] Joanie Ngo MD [address] [facility] [address] [place] [address] Discharge Disposition: Home or Self [...] as needed for Anxiety. 42 Each 0 12/12/2009 01/08/2010 fexofenadine (JUDITH) 180 mg tablet Take 1 Tab by mouth daily. 90 Each 3 12/12/2009 08/11/2010 fluticasone-salmeterol (ADVAIR DISKUS) 500-50 mcg/Dose diskus inhaler Inhale as directed 2 times daily. 05/08/2010 hydrocodone-acetaminoph en (LORTAB;VICODIN) 5-500 mg per tablet Take 1 Tab by mouth every 6 hours as needed for Pain for 28 days. 70 Each 0 12/12/2009 12/26/2009 methylphenidate (METADATE ER; METHYLIN ER) 10 mg [...] at bedtime. 30 Each 0 11/29/2009 08/11/2010 SERTRALINE HCL (ZOLOFT ORAL) Take 100 mg by mouth daily. 2 50mg tabs 12/26/2009 sumatriptan (IMITREX) 50 mg tablet Take 50 mg by mouth once as needed for Migraine. Gets 9 tabs a month and uses them all 08/11/2010 tizanidine (ZANAFLEX) 4 mg tablet Take 1 Tab by mouth every 6 hours as needed. 30 Each 0 12/12/2009 01/20/2010 documented as of this encounter Discharge Disposition Disposition Code Departure Means Destination Home or Self [facility] documented in this encounter Plan of Treatment Upcoming Encounters Date Type Department Care Team (Late st Contact Info) Description 06/29/2024 14:15 EDT Office Visit [facility] [address] [place] [address] Jean Munoz MD [address] [place] [phone] documented as of this encounter Visit Diagnoses Not on filedocumented in this encounter Care Teams Athletic Gear Custodian Relationship Specialty Start Date End Date Jean Munoz MD [address] [place] [phone] PCP - General 12/31/08 documented as of this encounter
--- OUTSIDE RECORDS SUMMARY | 2024-06-10 07:36 | XMS_ITS | Encounter Summary ---
Author Organization [facility] Address [address] [place] [address] Care Team Providers Care Procurement Agent Name Role Phone Jean Munoz MD Primary Care Provider Reason for Visit * Reason Onset Date Comments Shortness of Breath 11/08/2009 Encounter Details Date Type Department Care Team (Late st Contact Info) Description 11/08/2009 Telephone [facility] Family [facility] [address] [place] [address] Jean Munoz MD [address] [place] [phone] Shortness of Breath Social History Tobacco Use Types Packs/Day Years [...] encounter Miscellaneous Notes * Telephone Encounter - Hugh Hendersony - 11/08/2009 1318 EST Pt having short of breath and thinks it may be bronchitis. Tightness in chest. No nurse available. Told her to go to ER. documented in this encounter Plan of Treatment Upcoming Encounters Date Type Department Care Team (Late st Contact Info) Description 06/29/2024 14:15 EDT Office Visit [facility] [address] [place] [address] Jean Munoz MD [address] [place] [phone] documented as of this encounter Visit Diagnoses Not on filedocumented in this encounter Care Teams Procurement Agent Relationship Specialty Start Date End Date Jean Munoz MD [address] [place] [phone] PCP - General 12/31/08 documented as of this encounter
--- OUTSIDE RECORDS SUMMARY | 2024-06-10 07:36 | XMS_ITS | Encounter Summary ---
Author Organization [facility] Address [address] [place] [address] Care Team Providers Care Machine Tool Electrician Name Role Phone Jean Munoz MD Primary Care Provider Reason for Visit * Reason Onset Date Comments Other 11/21/2009 patient is at [facility] on service with him Encounter Details Date Type Department Care Team (Late st Contact Info) Description 11/21/2009 Telephone [facility] [address] [place] [address] Jean Munoz MD [address] [place] [phone] Other (patient is at the hospital on service with him) Social History Tobacco Use Types Packs/Day Years [...] Telephone Encounter - Jean Munoz MD - 11/21/2009 1312 EST I discussed with Dr Le by phone today, has had multiple recent ED visits, now admitted to Psychiatry, offered Family Medicine consult, he declined, they will consult Dr Cm. * Telephone Encounter - Sho Erazo - 11/21/[address] Le as soon as you are able. Thank you. documented in this encounter Plan of Treatment Upcoming Encounters Date Type Department Care Team (Late st Contact Info) Description 06/29/2024 14:15 EDT Office Visit [facility] Medicine [facility] [address] [place] [address] Jean Munoz MD [address] [place] [phone] documented as of this encounter Visit Diagnoses Not on filedocumented in this encounter Care Teams Machine Tool Electrician Relationship Specialty Start Date End Date Jean Munoz MD [address] [place] [phone] PCP - General 12/31/08 documented as of this encounter
--- OUTSIDE RECORDS SUMMARY | 2024-06-10 07:36 | XMS_ITS | Encounter Summary ---
Author Organization [facility] Address [address] [place] [address] Care Team Providers Care Assembly Worker Name Role Phone Jean Munoz MD Primary Care Provider Encounter Details Date Type Department Care Team (Late st Contact Info) Description 01/13/2010 9:46 EDT - 01/16/2010 23:59 EDT Hospital Encounter [address] [address] Joanie Ngo MD [address] [facility] [address] [place] [address] Discharge Disposition: Home or Self [...] 1 Tab by mouth 4 times daily. 52 Each 0 01/08/2010 01/20/2010 ibuprofen (MOTRIN) 800 mg tablet Take 1 Tab by mouth every 8 hours as needed for Pain. 60 Tab 0 12/31/2009 01/22/2010 methylphenidate (METADATE ER; METHYLIN ER) 10 mg [...] 30 Each 0 11/29/2009 08/11/2010 sertraline (ZOLOFT) 50 mg tablet Take 150 mg by mouth daily. 05/07/2010 sumatriptan (IMITREX) 50 mg tablet Take 50 mg by mouth once as needed for Migraine. Gets 9 tabs a month and uses them all 08/11/2010 tizanidine (ZANAFLEX) 4 mg tablet Take 1 Tab by mouth every 6 hours as needed. 30 Each 0 12/12/2009 01/20/2010 zolpidem (AMBIEN) 10 mg tablet Take 10 mg by mouth at bedtime as needed for Sleep. 04/21/2010 documented as of this encounter Discharge Disposition Disposition Code Departure Means Destination Home or Self Care documented in this encounter Plan of Treatment Upcoming Encounters Date Type Department Care Team (Late st Contact Info) Description 06/29/2024 14:15 EDT Office Visit [facility] [address] [place] [address] Jean Munoz MD [address] [place] [phone] documented as of this encounter Visit Diagnoses Not on filedocumented in this encounter Care Teams Assembly Worker Relationship Specialty Start Date End Date Jean Munoz MD [address] [place] [phone] PCP - General 12/31/08 documented as of this encounter
--- OUTSIDE RECORDS SUMMARY | 2024-06-10 07:36 | XMS_ITS | Encounter Summary ---
Author Organization [facility] Address [address] [place] [address] Care Team Providers Care Hop Separator Name Role Phone Jean Munoz MD Primary Care Provider Reason for Visit * Reason Comments Suture / Staple Removal upper lip Dizziness s/p fall Back Pain med refill Encounter Details Date Type Department Care Team (Late st Contact Info) Description 12/12/2009 13:00 EDT Office Visit [facility] [address] [place] [address] Jean Munoz MD [address] [place] [phone] Laceration (Primary Dx); Dizziness; Migraine; Impaired glucose tolerance; Asthma; Cervicalgia; Depression Discharge Disposition: Auto Discharge Social History Tobacco [...] Sign Reading Time Taken Comments Blood Pressure 104/76 12/12/2009 1258 EDT Pulse 90 12/12/2009 1258 EDT Temperature 36.6 ??C (97.9 ??F) 12/12/2009 1258 EDT Respiratory Rate - - Oxygen Saturation - - Inhaled Oxygen Concentration - - Weight 74.4 kg (164 lb) 12/12/2009 1258 EDT Height - - Body Mass Index 27.66 11/21/2009 0300 EST documented in this encounter Functional Status Cognitive Status Response Date of Assessm ent Because of a physical, menta l, or emotional condition, do you have serious difficulty concentrating, remembering, or making decisions? (5 years old or older) Yes 11/21/2009 documented as of this encounter Ordered Prescriptions Prescription Sig Dispensed Refills Start Date End Da te tizanidine (ZANAFLEX) 4 mg tablet Take 1 Tab by mouth every 6 hours as needed. 30 Each 0 12/12/2009 01/20/2010 diazepam (VALIUM) 5 mg tablet Take 1 Tab by mouth every 6 hours as needed for Anxiety. 42 Each 0 12/12/2009 01/08/2010 hydrocodone-acetaminophen (LORTAB;VICODIN) 5-500 mg per tablet Take 1 Tab by mouth every 6 hours as needed for Pain for 28 days. 70 Each 0 12/12/2009 12/26/2009 mometasone (NASONEX) 50 mcg/Actuation nasal spray 2 Sprays by Nasal route daily. 3 Inhaler 3 12/12/2009 11/13/2010 fexofenadine (JUDITH) 180 mg tablet Take 1 Tab by mouth daily. 90 Each 3 12/12/2009 08/11/2010 documented in this encounter Discharge Disposition Disposition Code Departure Means Destination Auto Discharge documented in this encounter Progress Notes * Jean Munoz MD - 12/12/2009 1313 EDT Subjective: Patient ID: Liset Viera is an 48 y.o. female. Chief Complaint: Mulitple issues HPI 1. Fall - 11/27, laceration, 2 stitches, needs removed from above lip 2. Dizziness - in hospital, ?low BP, dose decreased to 75mg then stopped, symptoms still present, feels unsteady, falls x5 since discharge, +lightheaded, no vertigo, feels like floor is moving, no nausea, no vomiting, dry heaves and diarrhea have resolved 3. Migraines - now off med, no increase in headaches 4. Elevated glucose 126 in hospital 5. ?disability eval See encounter summary for details. Patient Active Problem List Diagnoses Code ??? [...] ??? Degeneration of cervical intervertebral disc 722.4 Past Medical History Diagnosis Date ??? UTI [...] C4-7 Dr Dewitt ??? Hysterectomy, vaginal menorrhagia Current outpatient prescriptions Medication Sig Dispense Refill ??? SERTRALINE HCL (ZOLOFT ORAL) Take by mouth daily. 2 tabs daily ? dosage ??? TIZANIDINE HCL (ZANAFLEX ORAL) Take 10 mg by mouth at bedtime. ??? fexofenadine (JUDITH) 180 mg tablet Take 180 mg by mouth daily. ??? mometasone (NASONEX) 50 mcg/Actuation nasal spray 2 Sprays by Nasal route daily. ??? diazepam (VALIUM) 5 mg tablet Take 1 Tab by mouth every 6 hours as needed for Anxiety. 30 Each 0 ??? hydrocodone-acetaminophen (LORTAB;VICODIN) 5-500 mg per tablet Take 1 Tab by mouth every 6 hours as needed for Pain. 30 Each 0 ??? ropinirole (REQUIP) 1 mg tablet Take [...] tabsa month and uses them all ??? atenolol (TENORMIN) 25 mg tablet Take 3 Tabs by mouth daily. 30 Each 0 ??? atenolol (TENORMIN) 100 mg tablet Take 100 mg by mouth daily. Allergies Allergen Reactions ??? Toradol (Ketorolac Tromethamine) Hives Family History Problem Relation ??? Cancer Father esophageal ??? Cancer Paternal Aunt breast ??? Heart Attack Father ??? Migraines Maternal Aunt ??? Stroke Maternal Grandmother ??? Heart Attack Maternal Grandmother History Social History ??? Marital Status: Spouse Name: N/A Number of Children: N/A ??? Years of Education: N/A Occupational History ??? Not on file. Social History Main Topics ??? Tobacco Use: Yes -- 0.5 packs/day for 30 years quit 10/21, Rx verinicline x3 months, smoking again after ??? Alcohol Use: Yes rarely ??? Drug Use: No ??? Sexually Active: No Other Topics Concern ??? Not on file Social History Narrative ??? No narrative on file ROS as above Objective: Physical Exam BP 104/76 Pulse 90 Temp(Src) 36.6 ??C (97.9 ??F) (Oral) Wt 74.39 kg (164 lb) Laceration well healed Further exam deferred Assessment: Laceration Dizziness - ?low BP, dose decreased to 75mg then stopped, symptoms still present, has Neuro F/U Migraine headaches - no change now Chronic neck pain - states on Vicodin 6/day Anxiety - states on Valium 4/day Elevated glucose Plan: Stiches x2 removed Off atenolol Keep Neuro F/U Called Dr Valles at [facility], unable to reach Called gypsum calciner Lyssa Teague [facility] re disability evauluation RF vicodin 5/d (was on 6) x 2 weeks RF nasonex - discussed eye exam RF Valium 3/day x 2 weeks Will readdress glucose next visit Recheck 2 weeks documented in this encounter Miscellaneous Notes * Assessment & Plan Note - Jean Munoz MD - 12/12/2009 1320 EDT Associated Problem(s): Major depressive disorder, recurrent, severe without psychotic features (HCC-CMS) Mood better', see recent discharge summary, now in [facility] program * Assessment & Plan Note - Jean Munoz MD - 12/12/2009 1320 EDT Associated Problem(s): Cervicalgia Was not too bad until fall in hospital, now 03/22, needs refill of meds, due now (stolen in hospital but didn't call) * Assessment & Plan Note - Jean Munoz MD - 12/12/2009 1318 EDT Associated Problem(s): Asthma (Resolved 03/03/2017) pretty good, denies shortness of breath, slight cough at night documented in this encounter Plan of Treatment Upcoming Encounters Date Type Department Care Team (Late st Contact Info) Description 06/29/2024 14:15 EDT Office Visit [facility] [address] [place] [address] Jean Munoz MD [address] [place] [phone] documented as of this encounter Visit Diagnoses Diagnosis Laceration- Primary Open wound(s) (multiple) of unspecified site(s), without mention of complication Dizziness Dizziness and giddiness Migraine Migraine, unspecified, without mention of intractable migraine without mention of status migrainosus Impaired glucose tolerance Impaired glucose tolerance test Asthma Unspecified asthma Cervicalgia Depression Depressive disorder, not elsewhere classified Screening for osteoporosis- Primary [...] 40 mg by mouth daily. Alternate therapy 12/12/2009 citalopram (CELEXA) 40 mg tablet Take 1 Tab by mouth daily. Alternate therapy 11/29/2009 12/12/2009 methylphenidate (RITALIN SR; METADATE ER; METHYLIN ER) 20 mg SR tablet Take 1 Tab by mouth 2 times daily. Dose adjustment 11/29/2009 12/12/2009 pregabalin (LYRICA) 150 mg capsule Take 1 Cap by mouth 3 times daily. Duplicate Therapy 11/29/2009 12/12/2009 tizanidine (ZANAFLEX) 2 mg tablet Take 5 Tabs by mouth at bedtime. Error 11/29/2009 12/12/2009 fexofenadine (JUDITH) 180 mg tablet Take 180 mg by mouth daily. Reorder 12/12/2009 mometasone (NASONEX) 50 mcg/Actuation nasal spray 2 Sprays by Nasal route daily. Reorder 12/12/2009 hydrocodone-acetaminop hen (LORTAB;VICODIN) 5-500 mg per tablet Take 1 Tab by mouth every 6 hours as needed for Pain. Reorder 11/29/2009 12/12/2009 diazepam (VALIUM) 5 mg tablet Take 1 Tab by mouth every 6 hours as needed for Anxiety. Reorder 11/29/2009 12/12/2009 atenolol (TENORMIN) 100 mg tablet Take 100 mg by mouth daily. Patient Stopped Taking 12/12/2009 atenolol (TENORMIN) 25 mg tablet Take 3 Tabs by mouth daily. Patient Stopped Taking 11/29/2009 12/12/2009 TIZANIDINE HCL (ZANAFLEX ORAL) Take 10 mg by mouth at bedtime. Reorder 12/12/2009 documented as of this encounter Historical Medications * This list may reflect changes made after this encounter. Medication Sig Dispensed Refills Start Date End Date methylphenidate (RITALIN SR; METADATE ER; METHYLIN ER) 20 mg SR tablet Take 40 mg by mouth every morning. 05/15/2010 methylphenidate (METADATE ER; METHYLIN ER) 10 mg SR tablet Take 10 mg by mouth daily. At 1 pm 05/15/2010 mometasone (NASONEX) 50 mcg/Actuation nasal spray 2 Sprays by Nasal route daily. 12/12/2009 fexofenadine (JUDITH) 180 mg tablet Take 180 mg by mouth daily. 12/12/2009 TIZANIDINE HCL (ZANAFLEX ORAL) Take 10 mg by mouth at bedtime. 12/12/2009 SERTRALINE HCL (ZOLOFT ORAL) Take 100 mg by mouth daily. 2 50mg tabs 12/26/2009 added in this encounter Care Teams Hop Separator Relationship Specialty Start Date End Date Jean Munoz MD [address] [place] [phone] PCP - General 12/31/08 documented as of this encounter
--- OUTSIDE RECORDS SUMMARY | 2024-06-10 07:36 | XMS_ITS | Encounter Summary ---
Author Organization [facility] Address [address] [place] [address] Care Team Providers Care Certified Prosthetist Vice President Name Role Phone Jean Munoz MD Primary Care Provider Reason for Visit * Reason Onset Date Comments Medications Refill 01/08/2010 Encounter Details Date Type Department Care Team (Late st Contact Info) Description 01/08/[address] [address] Joceline Johnston, CHRIS Medications Refill Social History Tobacco Use [...] Dispensed Refills Start Date End Da te diazepam (VALIUM) 5 mg tablet Take 1 Tab by mouth every 6 hours as needed for Anxiety. 42 Each 0 01/08/2010 08/11/2010 hydrocodone-acetaminophen (LORTAB;VICODIN) 5-500 mg per tablet Take 1 Tab by mouth 4 times daily. 52 Each 0 01/08/2010 01/20/2010 documented in this encounter Miscellaneous Notes * Telephone Encounter - Joceline Johnston RN - 01/08/2010 1608 EDT CALLED INTO PHARMACY. * Telephone Encounter - Jean Munoz MD - 01/08/2010 1535 EDT Scripts done, please call in to pharmacy, notify patient, thanks * Telephone Encounter - Joceline Johnston RN - 01/08/2010 1527 EDT Pt not specific about which meds needed refills and unable to get a hold of her. Pended what i could see was done monthly or q2wks. * Telephone Encounter - Joceline Johnston RN - 01/08/2010 1522 EDT Pt came in today thinking her appt for tomorrow was today. States cant come tomorrow for she is having teeth pulled. Next available appt for pt is january. Pt scheduled that appt. Pt requesting refills on her meds. documented in this encounter Plan of Treatment Upcoming Encounters Date Type Department Care Team (Late st Contact Info) Description 06/29/2024 14:15 EDT Office Visit [facility] [address] [place], [place] [id number] Jean Munoz MD [address] [place] [phone] documented as of this encounter Visit Diagnoses Not on filedocumented in this encounter Discontinued Medications Medication Sig Discontinue Reason Start Date End Da te hydrocodone-acetaminophe n (LORTAB;VICODIN) 5-500 mg per tablet Take 1 Tab by mouth 4 times daily. Reorder 12/26/2009 01/08/2010 diazepam (VALIUM) 5 mg tablet Take 1 Tab by mouth every 6 hours as needed for Anxiety. Reorder 12/12/2009 01/08/2010 documented as of this encounter Care Teams Certified Prosthetist Vice President Relationship Specialty Start Date End Date Jean Munoz MD [address] [place] [phone] PCP - General 12/31/08 documented as of this encounter
--- OUTSIDE RECORDS SUMMARY | 2024-06-10 07:36 | XMS_ITS | Encounter Summary ---
Author Organization [facility] Address [address] [place] [address] Care Team Providers Care Work Measurement Engineer Name Role Phone Jean Munoz MD Primary Care Provider Reason for Visit * Reason Comments Facial Laceration Pt currently an inpa tient on [facility]. was outside smoking and became dizzy and fell landing on her face. Encounter Details Date Type Department Care Team (Late st Contact Info) Description 11/27/2009 16:13 EDT - 11/27/2009 17:13 EDT Emergency [facility] Emergency Department - Main [place] [address] [place], [place] [phone] Krzysztof Chun MD Emergency, MD Ismael Facial laceration; Facial contusion Discharge Disposition: Admitted to this Hospital Social History Tobacco Use Types Packs/Day Years [...] Sign Reading Time Taken Comments Blood Pressure 110/78 11/27/2009 1616 EDT Pulse 78 11/27/2009 1616 EDT Temperature 36.2 ??C (97.2 ??F) 11/27/2009 1616 EDT Respiratory Rate - - Oxygen Saturation [...] this encounter Discharge Instructions * Discharge Instructions* Belinda Chun MD (Richard) - 11/27/2009 16:41 EDT OK to gently clean face. Showering is OK. Nasal exam if any swelling or deformity at 5 days. Please have sutures removed in 5 days. Recheck if further falls or fainting episodes. Recheck if swelling or redness to face. documented in this encounter Medications at Time [...] times daily. 30 Each 0 11/29/2009 12/12/2009 ondansetron (ZOFRAN) 4 mg tablet Take 1 Tab by mouth every 8 hours as needed for Nausea. 10 Tab 0 11/15/2009 11/29/2009 pregabalin (LYRICA) 150 mg capsule Take 1 [...] at bedtime. 30 Each 0 11/29/2009 12/12/2009 TIZANIDINE HCL (TIZANIDINE ORAL) Take 10 mg by mouth at bedtime. 11/29/2009 zolpidem (AMBIEN) 10 mg tablet Take 1 Tab by mouth at bedtime as needed for Sleep. 90 Tab 0 10/31/2009 11/29/2009 documented as of this encounter Discharge Disposition Disposition Code Departure Means Destination Admitted to this Hospital documented in this encounter ED Notes * Belinda Chun MD (Richard) - 11/27/2009 7908 EDTAssociated Order(s): LACERATION REPAIR DOS: 11/27/2009 Chief Complaint Patient presents with ??? Facial Laceration Pt currently an inpatient on [facility]. was outside smoking and became dizzy and fell landing on her face. The patient is a 48 y.o. female who presents today with Facial Laceration The history is provided by the patient. The incident occurred less than 1 hour ago (Pt has recently been dizzy. Fell while pulling hard at cigarette. Did not really lose concsiuosness and recalls incident.). Incident location: while out smoking in front of the hospital. The injury mechanism was a fall. There is an injury to the face. Thepain is mild. The pain has been constant since onset. Associated symptoms include face. She reportsno foreign bodies present. Nothing worsens the symptoms. Review of Systems Psychiatric/Behavioral: Positive for dysphoric mood. All other systems reviewed and are negative. [...] Grandmother ??? Heart Attack Maternal Grandmother BP 110/78 Pulse 78 Temp(Src) 36.2 ??C (97.2 ??F) (Tympanic) LMP Hysterectomy Physical Exam Nursing note and vitals reviewed. Constitutional: She is oriented. She appears well-developed and well-nourished. HENT: Head: Normocephalic. Abrasions to forehead, small black eye on L, lac on bridge of nose and L cheek. 1 cm lac below nose. Teeth intact and lips with minor abrasion. Chin with minor abrasion Eyes: Extraocular motions are normal. Pupils are equal, round, and reactive to light. Neck: Normal range of motion. Cardiovascular: Normal rate, regular rhythm and normal heart sounds. No murmur heard. Neurological: She is alert and oriented. Psychiatric: She has a normal mood and affect. Radiology orders: None LACERATION REPAIR Performed by: attending Location: face Irrigation solution: saline Debridement: none Skin closure: 6-0 nylon Approximation: close Patient tolerance: Patient tolerated the procedure well with no immediate complications. Comments: All facial wounds cleaned by me. 1 cm lac inferior to nose closed with 2 6-0 ethilon. Other wounds closed with glue (total 2 cm.). ED Course: Old record reviewed. Lacs repaired. Pt not orthostatic. Not serious syncope. Discharge Prescriptions New Prescriptions No Discharge Prescriptions for this patient MDM Number of Diagnoses and Management Options Facial contusion: Facial laceration: General comments: 3 AND lac Encounter Diagnoses Code Name Primary? Qualifier ??? 873.40H Facial laceration ??? 920AG Facial contusion PCP: Jean Munoz MD 11/27/2009 11:45 PM * Magdalena Lind RN - 11/27/2009 1710 EDT Called [address] floor and gave report to pt's nurse, pt brought to [address] via w/c by EMT tech * Savannah Portillo I - 11/27/2009 1615 EDT Pt from [facility] [place] pass when fell. Please call [facility] when pt ready to return. kij documented in this encounter Miscellaneous Notes * Scanned Note-Null - Inpatient, Physician - 12/01/2009 0831 EDT documented in this encounter Plan of Treatment Upcoming Encounters Date Type Department Care Team (Late st Contact Info) Description 06/29/2024 14:15 EDT Office Visit [facility] [address] [place] [address] Jean Munoz MD [address] [place] [phone] Pending Results Name Type Priority Associated Diagnoses Date /Time GLUCOSE, GLUCOMETER Lab Routine 11/28 0:21 EDT Scheduled Orders Name Type Priority Associated Diagnoses Orde r Schedule GLUCOSE, GLUCOMETER Lab Routine For m edications that can be administered at any time during the hospitalization for visit such as immunizations. for 1 Occurrences starting 11/28/2009 documented as of this encounter Procedures Procedure Name Priority Date/Time Associated Diagnosis Comments GLUCOSE, GLUCOMETER Routine 11/28/2009 0 :21 EDT documented in this encounter Results * (ABNORMAL) GLUCOSE, GLUCOMETER (11/28/2009 0:21 EDT) Glucose, Fingerstick 126(H) 70 - 100 mg/dl [facility] Guitar Rep[employer] Technician ID [id number] Test Performed by Nursing Services [facility] 11/28/2009 0:21 EDT 11/28/2009 0:29 EDT Krzysztof Le MD CHEMISTRY & BL OOD GAS ORDERABLES [facility] [address] [place] [address] documented in this encounter Visit Diagnoses Diagnosis Facial laceration Open wound of face, unspecified site, without mention of complication Facial contusion Contusion of face, scalp, and neck except eye(s) Screening for osteoporosis- Primary Special screening for [...] Site hydrocodone-acetaminophen (LORTAB;VICODIN) 5-500 mg per tablet 2 Tab 2 Tablet, oral, NOW X1, 1 dose, On Wed11/27/09 at 1715, STAT Given 11/27/2009 17:00 EDT 2 Tablets documented in this encounter Active and Recently Administered Medications Times are shown in EDT. Scheduled Medication Order 11/25/2009 11/26/2009 11/27/2009 hydrocodone-acetaminophen (LORTAB;VICODIN) 5-500 mg per tablet 2 Tab (COMPLETED) 2 Tablet, oral, NOW X1, 1 dose, On Wed11/27/09 at 1715, STAT 1700 (Given - Provid er: Magdalena Lind RN) documented in this encounter Orders Medications Ordered That Victor Manuel ht Not Have Been Administered Count Last Ordered Date First Ordered Date hydrocodone-acetaminophen (L ORTAB;VICODIN) 5-500 mg per tablet 2 Tab 1 11/27/2009 Procedures Count Last Ordered Date First Orde red Date LACERATION REPAIR 1 11/28/2009 documented in this encounter Care Teams Work Measurement Engineer Relationship Specialty Start Date End Date Jean Munoz MD [address] [place] [phone] PCP - General 12/31/08 documented as of this encounter
--- OUTSIDE RECORDS SUMMARY | 2024-06-10 07:36 | XMS_ITS | Encounter Summary ---
Author Organization [facility] Address [address] [place] [address] Care Team Providers Care Practical Nurse Clinical Coordinator Name Role Phone Jean Munoz MD Primary Care Provider Reason for Visit * Reason Comments Knee Pain bilateral Encounter Details Date Type Department Care Team (Late st Contact Info) Description 01/20/2010 15:[address] [facility] [address] [place] [address] Jean Munoz MD [address] [place] [address] Left knee pain; Achilles tendonitis; Leg edema; Chronic back pain; Cervicalgia Social History Tobacco Use Types Packs/Day Years [...] Sign Reading Time Taken Comments Blood Pressure 104/74 01/20/2010 1538 EDT Pulse 78 01/20/2010 1538 EDT Temperature 36.4 ??C (97.6 ??F) 01/20/2010 1538 EDT Respiratory Rate - - Oxygen Saturation - - Inhaled Oxygen Concentration - - Weight 82.6 kg (182 lb) 01/20/2010 1538 EDT Height - - Body Mass Index 30.69 11/21/2009 0300 EST documented in this encounter Functional Status Cognitive Status Response Date of Assessm ent Because of a physical, menta l, or emotional condition, do you have serious difficulty concentrating, remembering, or making decisions? (5 years old or older) Yes 11/21/2009 documented as of this encounter Ordered Prescriptions Prescription Sig Dispensed Refills Start Date End Da te hydrocodone-acetaminophen (LORTAB;VICODIN) 5-500 mg per tabletIndications:Chronic back pain,Cervicalgia Take 1 Tab by mouth 4 times daily. 112 Each 0 01/20/2010 08/11/2010 tizanidine (ZANAFLEX) 4 mg tabletIndications:Chronic back pain,Cervicalgia Take 1 Tab by mouth every 6 hours as needed. 30 Each 3 01/20/2010 08/11/2010 hydrocodone-acetaminophen (LORTAB;VICODIN) 5-500 mg per tabletIndications:Chronic back pain,Cervicalgia Take 1 Tab by mouth 4 times daily. 52 Each 0 01/20/2010 01/20/2010 documented in this encounter Progress Notes * Jean Munoz MD - 01/20/2010 1602 EDT Subjective: Patient ID: Liset Viera is an 49 y.o. female. Chief Complaint: Achilles tendon and left knee pain HPI Onset 4 weeks ago, no injury, walking a lot, uphill, stiff in AM, intermittent swelling left knee, no daily, wants to let go, no definite catching, clicking or grindings, sometimes has sharp pain under kneecao, wakes her up from sleep. Also pain at Achilles bilaterally, told in past had 'bursitisin tendons, using Dr Wick's arch supports. Cannot tolerate NSAID, already on narcotics. Saw Dr Campbell recently for same problem, also has left leg swelling, had U/S 12/31, negative. Has chronic neck and back pain, needs RF of meds [facility]otin[facility] at [facility] Patient Active Problem List Diagnoses Code ??? [...] ??? Brachial neuritis or radiculitis NOS 11/06/2009 Family History Problem Relation ??? Cancer Father esophageal ??? Cancer Paternal Aunt breast ??? Heart Attack Father ??? Migraines Maternal Aunt ??? Stroke Maternal Grandmother ??? Heart Attack Maternal Grandmother Current outpatient prescriptions Medication Sig Dispense Refill ??? sertraline (ZOLOFT) 100 mg tablet Take 100 mg by mouth daily. ??? hydrocodone-acetaminophen (LORTAB;VICODIN) 5-500 mg per tablet Take 1 Tab by mouth 4 times daily. 52 Each 0 ??? diazepam (VALIUM) 5 mg tablet Take 1 Tab by mouth every 6 hours as needed for Anxiety. 42 Each 0 ??? ibuprofen (MOTRIN) 800 mg tablet Take 1 Tab by mouth every 8 hours as needed for Pain. 60 Tab 0 ??? sertraline (ZOLOFT) 50 mg tablet [...] METHYLIN ER) 20 mg SR tablet Take 20 mg by mouth every morning. 2 tabs 8 AM ??? tizanidine (ZANAFLEX) 4 mg tablet Take 1 Tab by mouth every 6 hours as needed. 30 Each 0 ??? ropinirole (REQUIP) 1 [...] Reactions ??? Toradol (Ketorolac Tromethamine) Hives History Social History ??? Marital Status: Spouse [...] ??? Not on file Social History Narrative 12/12/09 currently homeless ROS Objective: Physical Exam BP 104/74 Pulse 78 Temp(Src) 36.4 ??C (97.6 ??F) (Oral) Wt 82.555 kg (182 lb) LMP Hysterectomy Left knee: Minimal effusion, tender inferior and medial to patella, no tendersness over patellar tendon or quadriceps tendon, MCL/LCL, ACL/PCL intact, Rom limited slightly by pain Tender over Achilles tendon bilaterally, moderate swelling on right Mild calf swelling on left , circumference 38.5 and 26 on left (35 and 22.5 on right) Assessment: Encounter Diagnoses Code Name Primary? Qualifier ??? 719.46AB Left knee pain ??? 726.71X Achilles tendonitis ??? 782.3V Leg edema ??? 724.5AW Chronic back pain ??? 723.1 Cervicalgia Plan: Discussed PT RF meds Check d-dimer (prior U/S neg) Recheck one month I discussed all of the above verbally with patient, no barriers to understanding. The patient indicated understanding and agrees to the above plan. documented in this encounter Plan of Treatment Upcoming Encounters Date Type Department Care Team (Late st Contact Info) Description 06/29/2024 14:[address] [facility] [address] [place] [address] Jean Munoz MD [address] [place] [address] documented as of this encounter Procedures Procedure Name Priority Date/Time Associated Diagnosis Comments D-DIMER Routine 01/20/2010 16:20 EDT Leg edema documented in this encounter Results * D-DIMER (01/20/2010 16:20 EDT) D-Dimer 226 <230 ng/mL [facility] Comment: CUTOFF VALUE FOR THE EXCLUSION OF DVT and PE: 230 ng/mL Please note new reporting units and normal range effective 12/18/2009 Blood specimen (specimen) 01/20/2010 16:20 EDT 01/20/2010 20:14 EDT Jean Munoz MD HEMATOLOGY & PF 4 ORDERABLES Performing Organization Address City/State/[facility] Co de Phone Number [facility] [address] [place] [address] documented in this encounter Visit Diagnoses Diagnosis Left knee pain Pain in joint, lower leg Achilles tendonitis Achilles bursitis or tendinitis Leg edema Edema Chronic back pain Backache, unspecified Cervicalgia Screening [...] Discontinue Reason Start Date End Da te tizanidine (ZANAFLEX) 4 mg tablet Take 1 Tab by mouth every 6 hours as needed. Reorder 12/12/2009 01/20/2010 hydrocodone-acetaminophen (LORTAB;VICODIN) 5-500 mg per tablet Take 1 Tab by mouth 4 times daily. Error 01/08/2010 01/20/2010 hydrocodone-acetaminophen (LORTAB;VICODIN) 5-500 mg per tabletIndications:Chronic back pain,Cervicalgia Take 1 Tab by mouth 4 times daily. Reorder 01/20/2010 01/20/2010 documented as of this encounter Historical Medications * This list may reflect changes made after this encounter. Medication Sig Dispensed Refills Start Date End Date sertraline (ZOLOFT) 100 mg tablet Take 100 mg by mouth daily. 04/21/2010 added in this encounter Care Teams Practical Nurse Clinical Coordinator Relationship Specialty Start Date End Date Jean Munoz MD [address] [place] [phone] PCP - General 12/31/08 documented as of this encounter
--- OUTSIDE RECORDS SUMMARY | 2024-06-10 07:36 | XMS_ITS | Encounter Summary ---
Author Organization [facility] Address [address] [place] [address] Care Team Providers Care Trim Technician Name Role Phone Jean Munoz MD Primary Care Provider Reason for Visit * Reason Onset Date Comments Other 11/20/2009 Encounter Details Date Type Department Care Team (Late st Contact Info) Description 11/20/2009 Telephone [facility] - [place] [address] [place] [address] Jean Munoz MD [address] [place] [address] Other Social History Tobacco Use [...] encounter Miscellaneous Notes * Telephone Encounter - Floresita Mulligan - 11/20/2009 1051 EST PT HAS BEEN SICK FOR 2 WEEKS, HAS GONE TO THE ER. SHE IS GETTING WORSE INSTEAD OF BETTER, WANTS TO BE SEEN TODAY documented in this encounter Plan of Treatment Upcoming Encounters Date Type Department Care Team (Late st Contact Info) Description 06/29/2024 14:15 EDT Office Visit [facility] [address] [place] [address] Jean Munoz MD [address] [place] [address] documented as of this encounter Visit Diagnoses Not on filedocumented in this encounter Care Teams Trim Technician Relationship Specialty Start Date End Date Jean Munoz MD [address] [place] [phone] PCP - General 12/31/08 documented as of this encounter
--- OUTSIDE RECORDS SUMMARY | 2024-06-10 07:36 | XMS_ITS | Encounter Summary ---
Author Organization [facility] Address [address] [place] [address] Care Team Providers Care Cement Tile Maker Name Role Phone Jean Munoz MD Primary Care Provider Reason for Visit * Reason Comments Altered Mental Status Was seen at PCP fo r left leg swelling today, living at homeless half-way, a friend stated patient was going in and out of consciousness. patient never lossed consciousness, was talking whole time but wasn't making any sense. Patient has a history of narcolepsy Encounter Details Date Type Department Care Team (Late st Contact Info) Description 12/31/2009 18:22 EDT - 12/31/2009 23:00 EDT Emergency [facility] Emergency Department - Main [place] [address], [place] [id number] Boyd Schuler MD [address] [place] [address] Emergency, MD Ismael Edema; Somnolence Discharge Disposition: Home or Self Care Social [...] Sign Reading Time Taken Comments Blood Pressure 102/62 12/31/20090 EDT Pulse 69 12/31/20092139 EDT Temperature 36 ??C (96.8 ??F) 12/31/2009 1838 EDT Respiratory Rate 18 12/31/2009 1838 EDT Oxygen Saturation 96% 12/31/2009 183 EDT Inhaled Oxygen Concentration - - Weight [...] * Discharge Instructions* Boyd Schuler MD - 12/31/2009 22:39 EDT Images from the original note were not included. [facility] Patient Instructions Leg and Ankle Edema: After Your Visit Your Care Instructions Swelling in the legs, ankles, and feet is called edema. It is common after you sit or stand for a while. Long plane flights or car rides often cause swelling in the legs and feet. You may also have swelling if you have to stand for long periods of time at your job. Problems with the veins in the legs (varicose veins) and changes in hormones can also cause swelling. Sometimes the swelling in the ankles and feet is caused by a more serious problem, such as heart failure, infection, blood clots, or liver or kidney disease. Follow-up care is a horton part of your treatment and safety. Be sure to make and go to all appointments, and call your doctor if you are having problems. It???s also a good idea to know your test results and keep a list of the medicines you take. How can you care for yourself at home? ?? If your doctor gave you medication, take it as prescribed. Call your doctor if you think you arehaving a problem with your medicine. Whenever you are resting, raise your legs up. Try to keep the swollen area higher than the level ofyour heart. Take breaks from standing or sitting in one position. ?? Walk around to increase the blood flow in your lower legs. Move your feet and ankles often while you stand, or tighten and relax your leg muscles. ?? Wear support stockings. Put them on in the morning, before swelling gets worse. Eat a balanced diet. Lose weight if you need to. Limit the amount of salt (sodium) in your diet. Salt holds fluid in the body and may increase swelling. When should you call for help? Call 911 anytime you think you may need emergency care. For example, call if: ?? You have sudden chest pain and shortness of breath, or you cough up blood. Call your doctor now or seek immediate medical care if: ?? You have signs of a blood clot, such as: ?? Pain in your calf, back of the knee, thigh, or groin. Redness and swelling in your leg or groin. ?? You have sudden pain, tingling. weakness, or numbness in your legs or feet. The skin of your legs or feet is pale or cool or changes color. You have signs of infection, such as redness or a fever. Swelling increases or spreads or does not improve with home treatment. Watch closely for changes in your health, and be sure to contact your doctor if: ?? You do not get better as expected. Where can you learn more? Go to www.[employer].net/fahc Enter N696 in the search box to learn more about Leg and Ankle Edema: After Your Visit. ?? 2005 - 2008 [employer]. Care instructions adapted under license by [facility], [facility] . This care instruction is for use with your licensed healthcare professional. If you have questions about a medical condition or this instruction, always ask your healthcare professional. [employer] disclaims any warranty or liability for your [...] mouth 4 times daily. 52 Each 0 12/26/2009 01/08/2010 ibuprofen (MOTRIN) 800 mg tablet Take 1 [...] Means Destination Home or Self Care Taxi Home documented in this encounter ED Notes * Krzysztof Gonzalez RN - 12/31/2009 9816 EDT Patient has cab voucher to go home. * Boyd Schuler MD - 12/31/2009 2236 EDT DOS: 12/31/2009 Chief Complaint Patient presents with ??? Altered Mental Status Was seen at PCP for left leg swelling today, living at homeless half-way, a friend stated patient was going in and out of consciousness. patient never lossed consciousness, was talking whole time but wasn't making any sense. Patient has a history of narcolepsy The patient is a 49 y.o. female who presents today with Altered Mental Status The history is provided by the patient. Altered Mental Status This is a new problem. The current episode started 6 to 12 hours ago. The problem has not changed since onset. Associated symptoms include somnolence. Risk factors: denies all ingestion. Her past medical history is significant for depression. Review of Systems Musculoskeletal: Leg swelling on left All other systems reviewed and are negative. [...] Grandmother ??? Heart Attack Maternal Grandmother BP 102/62 Pulse 69 Temp(Src) 36 ??C (96.8 ??F) (Tympanic) Resp 18 SpO2 96% LMP Hysterectomy Physical Exam Nursing note and [...] Effort normal and breath sounds normal. She has no wheezes. She has no rales. Abdominal: Soft. Bowel sounds are normal. No tenderness. She has no rebound and no guarding. Musculoskeletal: Normal range of motion. She exhibits edema (left leg below the knee). She exhibitsno tenderness. Neurological: She is alert and oriented. No cranial nerve deficit. Skin: Skin is warm and dry. Psychiatric: She has a normal mood and affect. Her behavior is normal. Very sleepy dozing off in front of physician. Radiology orders: RAD US DOPPLER LOWER EXTREMITY VENOUS UNILATERAL RAD US DOPPLER LOWER EXTREMITY VENOUS UNILATERAL Final result not shown here.: Procedures ED Course: Labs Reviewed HEMAGRAM AND DIFFERENTIAL - Abnormal; Notable for the following: ??? RDW-CV 16.4 (*) All other components within normal limits SCREENING GLUCOSE ELECTROLYTES BUN CREATININE Us negative for DVT 12/31/2009 10:38 PM: Patient more awake now will discharge Discharge Prescriptions New Prescriptions No Discharge Prescriptions for this patient MDM Number of Diagnoses and Management Options Edema: Somnolence: General comments: 4 Amount and/or Complexity of Data Reviewed Clinical lab tests: ordered and reviewed Tests in the radiology section of CPT??: ordered Discussion of test results with the performing providers: yes Encounter Diagnoses Code Name Primary? Qualifier ??? 782.3 Edema ??? 780.09D Somnolence Comment: resolving PCP: Jean Munoz MD 12/31/2009 10:39 PM * Krzysztof Gonzalez RN - 12/31/20092206 EDT Patient alert and answering questions appropriately. * Carlitos Lisa RN - 12/31/20092129 EDT Blood drawn via butterfly needle per protocol, tiger and purple tube(s) sent to lab per order, IV attempt x2 unsuccessful. Provided pt with sandwich and po fluids. * Carlitos Lisa RN - 12/31/20092109 EDT Pt returned from ultrasound, awake and alert, pt ambulated to with crutches, gait steady. Pt states I remember getting to this room but I don't remember being wheeled down to ultrasound, that hasnever happened before. Medical student at bedside. * Carlitos Lisa RN - 12/31/20092035 EDT MD Acuña aware that pt is still in Ultrasound. * Carlitos Lisa RN - 12/31/20092024 EDT Pt transported to [facility] on stretcher with tech. * Carlitos Lisa RN - 12/31/2009 1948 EDT Entered pt room, pt sleepy and difficulty to keep awake. MD Schuler at bedside, pt answering MD questions. Pupils round and reactive to light. documented in this encounter Miscellaneous Notes * Scanned Note-Null - Inpatient, Physician - 01/02/2010 0955 EDT documented in this encounter Plan of Treatment Upcoming Encounters Date Type Department Care Team (Late st Contact Info) Description 06/29/2024 14:15 EDT Office Visit [facility] Family Medicine [facility] [address] [place] [address] Jean Munoz MD [address] [place] [address] documented as of this encounter Procedures Procedure Name Priority Date/Time Associated Diagnosis Comments RAD US DOPPLER LOWER EXTREMITY VENOUS UNILATERAL STAT 12/31/2009 20:51 EDT SCREENING GLUCOSE STAT 12/31/2009 19: 45 EDT COMPLETE BLOOD COUNT AND DIFFERENTIAL STAT 12/31/2009 19:45 EDT BUN STAT 12/31/2009 19:45 EDT CREATININE STAT 12/31/2009 19:45 EDT ELECTROLYTES STAT 12/31/2009 19:45 EDT documented in this encounter Results * RAD US DOPPLER LOWER EXTREMITY VENOUS UNILATERAL (12/31/2009 20:51 EDT) Anatomical Region Laterality Modality Other 12/31/2009 20:5 1 EDT 12/31/2009 22:18 EDT Narrative 12/31/2009 22:18 EDT Left RAD US DOPPLER LOWER EXTREMITY VENOUS UNILATERAL ??Dec 31, 2009 08:51:00 PM Signs and Symptoms/Comments: ??left leg swelling Findings: Ultrasound with Doppler was performed of the left lower extremity. The external iliac vein, common femoral vein, superficial femoral vein, and popliteal veins demonstrate normal compressibility, normal Doppler flow with augmentation, and no visualized thrombus. Normal doppler flow with no visualized thrombus was seen within the posterior tibial, anterior tibial, and peroneal veins. Impression: 1. No deep vein thrombosis in the left lower extremity from the groin to mid-calf. I have personally reviewed the images and the above interpretation and agree with the findings. Procedure Note Octavio Melendez MD / Octavio Melendez MD / Octavio Melendez MD - 12/31/2009 Left RAD US DOPPLER LOWER EXTREMITY VENOUS UNILATERAL Dec 31, 2009 08:51:00 PM Signs and Symptoms/Comments: left leg swelling Findings: Ultrasound with Doppler was performed of the left lower extremity. The external iliac vein, common femoral vein, superficial femoral vein, and popliteal veins demonstrate normal compressibility, normal Doppler flow with augmentation, and no visualized thrombus. Normal doppler flow with no visualized thrombus was seen within the posterior tibial, anterior tibial, and peroneal veins. Impression: 1. No deep vein thrombosis in the left lower extremity from the groin to mid-calf. I have personally reviewed the images and the above interpretation and agree with the findings. Boyd Schuler MD IM US ORDERABLES * (ABNORMAL) HEMAGRAM AND DIFFERENTIAL (12/31/2009 19:45 EDT) WBC 6.32 4.0 - 12.4 K/cmm [facility] RBC 3.95 3.86 - 5.04 M/cmm [facility] Hemoglobin 13.0 11.6 - 15.2 gm/dl [facility] HCT 37.9 34.9 - 44.4 % [facility] MCV 96 81 - 98 fl [facility] MCH 32.9 26.7 - 33.3 pg [facility] MCHC 34.3 32.1 - 35.9 gm/dl [facility] PLT 310 141 - 320 K/cmm [facility] RDW-CV 16.4(H) 11.7 - 14.6 % [facility] % Neutrophils 58.2 45.5 - 79.7 % [facility] % Lymphocytes 29.6 15.0 - 46.8 % [facility] % Monocytes 8.3 1.8 - 12.0 % [facility] % Eosinophils 3.4 0.6 - 6.9 % [facility] % Basophils 0.5 0.2 - 1.4 % [facility] ABS Neutrophils 3.68 2.20 - 8.85 K/cmm [facility] ABS Lymphs 1.87 1.09 - 3.30 K/cmm [facility] ABS Monocytes 0.52 0.1 - 0.8 K/cmm [facility] ABS Eosinophils 0.21 0.03 - 0.61 K/cmm [facility] ABS Basophils 0.03 0.01 - 0.11 K/cmm [facility] Type of Diff: Automated [facility] Blood specimen (specimen) 12/31/2009 19:45 EDT 12/31/2009 21:36 EDT Boyd Schuler MD PACKAGES & DNA PROB E ORDERABLES [facility] [address] [place] [address] * CREATININE (12/31/2009 19:45 EDT) Creatinine 0.70 0.7 - 1.5 mg/dl [facility] GFR, Calculated >60 ml/min/1.7 3m2 [facility] Blood specimen (specimen) 12/31/2009 19:45 EDT 12/31/2009 21:36 EDT Boyd Schuler MD CHEMISTRY & BLOOD G ORDERABLES Performing Organization Address [facility] Co de Phone Number [facility] [address] [place] [address] * BUN (12/31/2009 19:45 EDT) BUN 14 10 - 26 mg/dl [facility] Blood specimen (specimen) 12/31/2009 19:45 EDT 12/31/2009 21:36 EDT Boyd Schuler MD CHEMISTRY & BLOOD G ORDERABLES Performing Organization Address [facility] de Phone Number [facility] [address] [place] [address] * ELECTROLYTES (12/31/2009 19:45 EDT) Sodium 141 136 - 145 mEq/L [facility] Potassium 4.2 3.5 - 5.0 mEq/L [facility] Chloride 107 96 - 110 mEq/L [facility] CO2 31 24 - 32 mEq/L [facility] Blood specimen (specimen) 12/31/2009 19:45 EDT 12/31/2009 21:36 EDT Boyd Schuler MD CHEMISTRY & BLOOD G ORDERABLES Performing Organization Address [facility] de Phone Number [facility] [address] [place] [address] * SCREENING GLUCOSE (12/31/2009 19:45 EDT) Glucose, Screening 70 70 - 100 mg/dl [facility] Blood specimen (specimen) 12/31/2009 19:45 EDT 12/31/2009 21:36 EDT Boyd Schuler MD CHEMISTRY & BLOOD G ORDERABLES Performing Organization Address [facility] Co de Phone Number [facility] [address] [place] [address] documented in this encounter Visit Diagnoses Diagnosis Edema Somnolence Other alteration of consciousness Screening for osteoporosis- Primary Special screening for osteoporosis Primary narcolepsy without cataplexy Chronic pain syndrome Chronic low back pain Lumbago Chronic use of opiate for therapeutic purpose Pain medication agreement Encounter for long-term (current) use of other medications Screen for colon cancer Special screening for malignant neoplasms, colon documented in this encounter Active and Recently Administered Medications Orders Medications Ordered That Victor Manuel ht Not Have Been Administered Count Last Ordered Date First Ordered Date naloxone (NARCAN) injection 0.4 mg 1 2009 Nursing Count Last Ordered Date First Orde red Date INSERT PERIPHERAL IV 1 12/31/2009 documented in this encounter Care Teams Cement Tile Maker Relationship Specialty Start Date End Date Jean Munoz MD [address] [place] [phone] PCP - General 12/31/08 documented as of this encounter
--- OUTSIDE RECORDS SUMMARY | 2024-06-10 07:36 | XMS_ITS | Encounter Summary ---
Author Organization [facility] Address [address] [place] [address] Care Team Providers Care Ordnance Officer Name Role Phone Jean Munoz MD Primary Care Provider Reason for Visit * Reason Onset Date Comments Other 11/11/2009 Encounter Details Date Type Department Care Team (Late st Contact Info) Description 11/11/2009 Telephone [facility] Family Medicine [facility] [address] [place] [address] Jean Munoz MD [address] [place] [phone] Other Social History Tobacco Use [...] Telephone Encounter - Caro Krueger RN - 11/11/2009 1120 EST Called Liset roque; seen in ER at [facility] on 11/08 and dgx with bronchitis. Treated with prednisone,nebulizer, and cough med with codeine. Breathing is better but now has diarrhea and vomiting for 2 days. Has not been able to hold anything at all down for 2 days and is very weak and can hardly stand. No appt here at [facility] today. Referred back to [facility]. * Telephone Encounter - Floresita Mulligan - 11/11/2009 1100 EST Went to the ER on 11/08/2009 has acute bronchitis Pt states she is dehydrated, she can't keep anything down. documented in this encounter Plan of Treatment Upcoming Encounters Date Type Department Care Team (Late st Contact Info) Description 06/29/2024 14:15 EDT Office Visit [facility] [address] [place] [address] Jean Munoz MD [address] [place] [phone] documented as of this encounter Visit Diagnoses Not on filedocumented in this encounter Care Teams Ordnance Officer Relationship Specialty Start Date End Date Jean Munoz MD [address] [place] [phone] PCP - General 12/31/08 documented as of this encounter
--- OUTSIDE RECORDS SUMMARY | 2024-06-10 07:36 | XMS_ITS | Encounter Summary ---
Author Organization [facility] Address [address] [place] [address] Care Team Providers Care Waste Removalist Name Role Phone Jean Munoz MD Primary Care Provider Reason for Visit * Reason Comments Pain neck/back/knees Depression Encounter Details Date Type Department Care Team (Late st Contact Info) Description 12/26/2009 13:00 EDT Office Visit [facility] [address] [place] [address] Jean Munoz MD [address] [place] [phone] Laceration (Primary Dx); Dizziness; Migraine; Cervicalgia; Anxiety Social History Tobacco Use Types Packs/Day [...] Reading Time Taken Comments Blood Pressure 100/68 12/26/2009 1300 EDT Pulse 84 12/26/2009 1300 EDT Temperature 36.6 ??C (97.9 ??F) 12/26/2009 1300 EDT Respiratory Rate - - Oxygen Saturation - - Inhaled Oxygen Concentration - - Weight 80.7 kg (178 lb) 12/26/2009 1300 EDT Height - - Body Mass Index 30.02 11/21/2009 0300 EST documented in this encounter [...] times daily. 52 Each 0 12/26/2009 01/08/2010 documented in this encounter Progress Notes * Jean Munoz MD - 12/26/2009 1316 EDT Subjective: Patient ID: Liset Viera is an 48 y.o. female. Chief Complaint: Multiple issues HPI Still homeless, [facility] Still at [facility] with Dr Julio et al, I discussed with Dr Julio by phone before visit (Dx Depression/anxiety, R/O Panic, somatization, D/C'd valium, now on hydroxyzine, changed Celexa to Zoloft, ?Ritalin per Neuro (Dr Caban), not on Ambien, on Trazodone for sleep instead, consider tramadol prn?) Laceration healing well, still has bump Dizziness - not as bad, symptoms still present, not resolved completely, no more falls Headaches - have not been bad Sleep - not so great, not on Ambien, Trazodone instead but patient states this does not help. Pain - still there mostly neck and lower back and knees, missed MRI because of diarrhea (has improved) Patient Active Problem List Diagnoses Code ??? [...] Medication Sig Dispense Refill ??? sertraline (ZOLOFT) 50 mg tablet Take 100 mg by mouth daily. 2 tabs daily ??? zolpidem (AMBIEN) 10 mg tablet Take 10 mg by mouth at bedtime as needed for Sleep. ??? fexofenadine (JUDITH) 180 mg tablet Take 1 Tab by mouth daily. 90 Each 3 ??? mometasone (NASONEX) 50 mcg/Actuation nasal spray 2 Sprays by Nasal route daily. 3 Inhaler 3 ??? hydrocodone-acetaminophen (LORTAB;VICODIN) 5-500 mg per tablet Take 1 Tab by mouth every 6 hours as needed for Pain for 28 days. 70 Each 0 ??? methylphenidate (METADATE ER; METHYLIN ER) 10 [...] tabsa month and uses them all ??? diazepam (VALIUM) 5 mg tablet Take 1 Tab by mouth every 6 hours as needed for Anxiety. 42 Each 0 Allergies Allergen Reactions ??? Toradol (Ketorolac Tromethamine) [...] Social History Narrative 12/12/09 currently homeless ROS as above Objective: Physical Exam BP 100/68 Pulse 84 Temp(Src) 36.6 ??C (97.9 ??F) (Oral) Wt 80.74 kg (178 lb) LMP Exam deferred Assessment: Laceration - healed Dizziness - improved Mgraines - stable Chronic neck pain - dependent on narcotics Anxiety - ?somatization Elevated glucose Homeless Depression Narcolepsy Insomnia Plan: Off atenolol Keep Neuro F/U 01/28 Continue at [place] Called credit report checker Lyssa Teague [facility] re disability evauluation previously, no return call yet Recommend contact Neuro/Pscyh for disability recs, may need FCE at [facility] Taper Vicodin to 4/day (she thought last prescription was for 4/day) A1C next time Recheck 2 weeks I discussed all of the above verbally with patient, no barriers to understanding. The patient indicated understanding and agrees to the above plan. documented in this encounter Plan of Treatment Upcoming Encounters Date Type Department Care Team (Late st Contact Info) Description 06/29/2024 14:15 EDT Office Visit [facility] [address] [place] [address] Jean Munoz MD [address] [place] [phone] documented as of this encounter Visit Diagnoses Diagnosis Laceration- Primary Open wound(s) (multiple) of unspecified site(s), without mention of complication Dizziness Dizziness and giddiness Migraine Migraine, unspecified, without mention of intractable migraine without mention of status migrainosus Cervicalgia Anxiety Anxiety state, unspecified Screening for osteoporosis- [...] Discontinue Reason Start Date End Da te SERTRALINE HCL (ZOLOFT ORAL) Take 100 mg by mouth daily. 2 50mg tabs Error 12/26/2009 hydrocodone-acetaminophe n (LORTAB;VICODIN) 5-500 mg per tablet Take 1 Tab by mouth every 6 hours as needed for Pain for 28 days. Reorder 12/12/2009 12/26/2009 documented as of this encounter Historical Medications * This list may reflect changes made after this encounter. Medication Sig Dispensed Refills Start Date End Date zolpidem (AMBIEN) 10 mg tablet Take 10 mg by mouth at bedtime as needed for Sleep. 04/21/2010 sertraline (ZOLOFT) 50 mg tablet Take 150 mg by mouth daily. 05/07/2010 added in this encounter Care Teams Waste Removalist Relationship Specialty Start Date End Date Jean Munoz MD [address] [place] [phone] PCP - General 12/31/08 documented as of this encounter
--- OUTSIDE RECORDS SUMMARY | 2024-06-10 07:37 | XMS_ITS | Encounter Summary ---
Author Organization [facility] Address [address] [place] [address] Care Team Providers Care Warp Scouring Vat Tender Name Role Phone Jean Munoz MD Primary Care Provider Encounter Details Date Type Department Care Team (Late st Contact Info) Description 01/21/2009 8:46 EDT - 01/21/2009 23:59 EDT Hospital Encounter [address] [place] [address] Cory Dewitt MD [address] [place] [phone] Social History Tobacco Use Types Packs/Day Years Used Date Smoking Tobacco: Never Assessed Sex and Gender Information Value Date Recorded Sex Assigned at Not on file Gender Identity Female 08/11/2019 16:07 EST Sexual Orientation Not on file documented as of this encounter Discharge Disposition Disposition Code Departure Means Destination Home documented in this encounter Plan of Treatment Upcoming Encounters Date Type Department Care Team (Late Contact Info) Description 06/29/2024 14:15 EDT Office Visit [facility] Family Medicine [address] [address] Jean Munoz MD [address] [place] [phone] documented as of this encounter Visit Diagnoses Not on filedocumented in this encounter Care Teams Warp Scouring Vat Tender Relationship Specialty Start Date End Date Jean Munoz MD [address] [place] [phone] PCP - General 12/31/08 documented as of this encounter
--- OUTSIDE RECORDS SUMMARY | 2024-06-10 07:37 | XMS_ITS | Encounter Summary ---
Author Organization [facility] Address [address] [place] [address] Care Team Providers Care Retail Interior Designer Name Role Phone Unavailable Primary Care Provider Unavailabl e Encounter Details Date Type Department Care Team (Latest Contact Info) Description 12/16/2008 10:07 EDT - 12/16/2008 11:59 EDT Hospital Encounter [facility] [address] [place] [address] AttarianSabine MD [address] [facility] [address] [place] [phone] Discharge Disposition: Auto Discharge Social History Tobacco Use Types Packs/Day Years Used Date Smoking Tobacco: Never Assessed Sex and Gender Information Value Date Recorded Sex Assigned at Not on file Gender Identity Female 08/11/2019 16:07 EST Sexual Orientation Not on file documented as of this encounter Discharge Disposition Disposition Code Departure Means Destination Auto Discharge documented in this encounter Plan of Treatment Upcoming Encounters Date Type Department Care Team (Late st Contact Info) Description 06/29/2024 14:15 EDT Office Visit [facility] Family Medicine [facility] [address] [place] [address] Jean Munoz MD [address] [place] [phone] documented as of this encounter Visit Diagnoses Not on filedocumented in this encounter
--- OUTSIDE RECORDS SUMMARY | 2024-06-10 07:37 | XMS_ITS | Encounter Summary ---
Author Organization [facility] Address [address] [place] [address] Care Team Providers Care Anvil Seating Press Operator Name Role Phone Jean Munoz MD Primary Care Provider Manny Rizzo MD Unavailable Afia Valle MD Unavailable [phone] Jesi Leong NURSING ADMIN Unavailable SaloJesi shanks NURSING ADMIN Unavailable Encounter Details Date Type Department Care Team (Late st Contact Info) Description 12/31/2008 Before PRISM Converted Visit (Maple) [facility] Spine Program - [address] [place], [place] [phone] Leila Dewitt MD [address] [place] [phone] Social History Tobacco Use Types Packs/Day Years [...] System [facility] [address] [place], [place] [phone] Jean Munoz MD [address] [place] [phone] documented as of this encounter Procedures Procedure Name Priority Date/Time Associated Diagnosis Comments CERVICAL SPINE 1 VIEW 12/31/2008 8:55 EDT documented in this encounter Results * CERVICAL SPINE (12/31/2008 8:55 EDT) Anatomical Region Laterality Modality Other 12/31/2008 8:55 EDT Narrative 01/08/2009 3:05 EDT DISC DISPLACEMENT S/P ACDF R/O CHECK LEVEL CERVICAL SPINE ??Dec 31, 2008 8:55:00 AM Clinical history: DISC DISPLACEMENT S/P ACDF R/O CHECK LEVEL Comparison: MRI June 09, 2008. Findings: Lateral view of the cervical spine was obtained showing a metallic marking object at the anterior disc space at C6-C7. Case was called in to Dr LEILA DEWITT's OR at the time of dictation who concurs with the localization I have personally reviewed the images and the above interpretation and agree with the findings. Procedure Note Uli Maza MD / El Padron MD - 01/08/2009 DISC DISPLACEMENT S/P ACDF R/O CHECK LEVEL CERVICAL SPINE Dec 31, 2008 8:55:00 AM Clinical history: DISC DISPLACEMENT S/P ACDF R/O CHECK LEVEL Comparison: MRI June 09, 2008. Findings: Lateral view of the cervical spine was obtained showing a metallic marking object at the anterior disc space at C6-C7. Case was called in to Dr LEILA DEWITT's OR at the time of dictation who concurs with the localization I have personally reviewed the images and the above interpretation and agree with the findings. Leila Dewitt MD IMG DIAGNOSTIC IMAGI NG ORDERABLES documented in this encounter Visit Diagnoses Not on filedocumented in this encounter Additional Health Concerns Infection Onset Date Last Indicated Resolved Time R/O COVID-19 05/15/2022 05/15/2022 05/20/2022 22:1 6 EDT R/O COVID-19 11/14/2022 11/14/2022 11/14/2022 19:1 6 EST documented as of this encounter Care Teams Anvil Seating Press Operator Relationship Specialty Start Date End Date Jean Munoz MD [address] [place] [phone] PCP - General 12/31/08 Manny Rizzo MD [address] [place] [phone] 04/20/10 Afia Valle MD [address] [place] [address] [address] [place] [phone] Care Team Radiation Oncology 07/02/21 Jesi Leong [facility] [address] [place] [phone] Zoning Administrator 12/24/21 09/20/22 Jesi Leong NURSING ADMIN [address] [place] [phone] Behavioral Health Zoning AdministratorInbound Customer Service Agent Care 10/19/22 01/23/24 documented as of this encounter
--- OUTSIDE RECORDS SUMMARY | 2024-06-10 07:37 | XMS_ITS | Encounter Summary ---
Author Organization [facility] Address [address] [place] [address] Care Team Providers Care Motor Coach Driver Name Role Phone Jean Munoz MD Primary Care Provider Encounter Details Date Type Department Care Team (Late st Contact Info) Description 08/27/[address] [address] Jean Munoz MD [address] [place] [phone] Social History Tobacco Use Types Packs/Day Years Used Date Smoking Tobacco: Every Day Comments:quit 10/21, Rx verin icline x3 months, [...] Visit [facility] [address] [place] [address] Jean Munoz MD [address] [place] [phone] documented as of this encounter Visit Diagnoses Not on filedocumented in this encounter Historical Medications * This list may reflect changes made after this encounter. Medication Sig Dispensed Refills Start Date End Date METHYLPHENIDATE HCL (RITALIN SR ORAL) Take 10 mg by mouth. Frequency: every noon. 11/21/2009 methylphenidate (RITALIN SR) 20 mg SR tablet Take 2 Tabs by mouth. Frequency: every morning. 11/21/2009 TIZANIDINE HCL (TIZANIDINE ORAL) Take 10 mg by mouth at bedtime. 11/29/2009 zolpidem (AMBIEN) 10 mg tablet Take 10 mg by mouth at bedtime as needed for Sleep. 10/31/2009 predniSONE (DELTASONE) 20 mg tablet Take 20 mg by mouth as needed. 11/21/2009 ropinirole (REQUIP) 1 mg tablet Take 1 mg by mouth at bedtime. 11/21/2009 sumatriptan (IMITREX) 50 mg tablet Take 50 mg by mouth as needed for Migraine. 11/21/2009 atenolol (TENORMIN) 100 mg tablet Take 100 mg by mouth daily. 12/12/2009 hydrocodone-acetaminophe n (VICODIN) 5-500 mg per tablet Take 1 Tab by mouth 5 times daily. 11/21/2009 PSYLLIUM SEED/SUCROSE (FIBER ORAL) Take by mouth daily. Dose: take 1. 11/21/2009 docusate sodium (COLACE) 100 mg capsule Take 100 mg by mouth as needed for Constipation. 11/21/2009 fluticasone-salmeterol (ADVAIR DISKUS) 500-50 mcg/Dose diskus inhaler Inhale as directed 2 times daily. 05/08/2010 fexofenadine (JUDITH) 180 mg tablet Take 180 mg by mouth daily. 11/21/2009 ALBUTEROL INHL Inhale 2 Puffs as directed 2 times daily as needed. 08/11/2010 MOMETASONE FUROATE (NASONEX NASL) by Nasal route as needed. 11/21/2009 added in this encounter Care Teams Motor Coach Driver Relationship Specialty Start Date End Date Jean Munoz MD [address] [place] [phone] PCP - General 12/31/08 documented as of this encounter
--- OUTSIDE RECORDS SUMMARY | 2024-06-10 07:37 | XMS_ITS | Encounter Summary ---
Author Organization [facility] Address [address] [place] [address] Care Team Providers Care Surgical Aides Teacher Name Role Phone Unavailable Primary Care Provider Unavailabl e Encounter Details Date Type Department Care Team (Latest Contact Info) Description 12/17/2008 15:01 EDT Hospital Encounter [facility] [address] [place] [address] Attarian, Sabine Humphrey MD [address] [phone] Discharge Disposition: Auto Discharge Social History Tobacco [...] Info) Description 06/29/2024 14:15 EDT Office Visit [facility] [address] [place] [address] Jean Munoz MD [address] [place] [phone] documented as of this encounter Visit Diagnoses Not on filedocumented in this encounter
--- OUTSIDE RECORDS SUMMARY | 2024-06-10 07:37 | XMS_ITS | Encounter Summary ---
Author Organization [facility] Address [address] [place] [address] Care Team Providers Care Senior Underwriting Assistant Name Role Phone Jean Munoz MD Primary Care Provider Encounter Details Date Type Department Care Team (Late st Contact Info) Description 07/04/2009 Abstract [facility] [address] [place] [address] Jean Munoz MD [address] [place] [phone] Social History Tobacco Use Types Packs/Day Years [...] Visit [facility] [address] [place] [address] Jean Munoz MD [address] [place] [phone] documented as of this encounter Visit Diagnoses Not on filedocumented in this encounter Historical Medications * This list may reflect changes made after this encounter. Medication Sig Dispensed Refills Start Date End Date SENNOSIDES (SENEXON ORAL) Take 2 Tabs by mouth at bedtime. 11/21/2009 promethazine (PHENERGAN) 25 mg tablet Take 25 mg by mouth as needed. 11/21/2009 added in this encounter Care Teams Senior Underwriting Assistant Relationship Specialty Start Date End Date Jean Munoz MD [address] [place] [phone] PCP - General 12/31/08 documented as of this encounter
--- OUTSIDE RECORDS SUMMARY | 2024-06-10 07:37 | XMS_ITS | Encounter Summary ---
Author Organization [facility] Address [address] [place] [address] Care Team Providers Care Bat Person Name Role Phone Jean Munoz MD Primary Care Provider Encounter Details Date Type Department Care Team (Latest Contact Info) Description 01/07/2009 9:46 EDT - 01/07/2009 23:59 EDT Hospital Encounter [facility] Neurophysiology - [facility] [address] [place], [place] [phone] AttSabine schofield MD [address] [facility] [address] [place] [phone] Discharge Disposition: Auto Discharge Social History Tobacco [...] 14:15 EDT Office Visit [facility] Family Medicine [facility] [address] [place] [address] Jean Munoz MD [address] [place] [phone] documented as of this encounter Visit Diagnoses Not on filedocumented in this encounter Care Teams Bat Person Relationship Specialty Start Date End Date Jean Munoz MD [address] [place] [phone] PCP - General 12/31/08 documented as of this encounter
--- OUTSIDE RECORDS SUMMARY | 2024-06-10 07:37 | XMS_ITS | Encounter Summary ---
Author Organization [facility] Address [address] [place] [address] Care Team Providers Care Beam Carrier Hauler Pusher Name Role Phone Jean Munoz MD Primary Care Provider Encounter Details Date Type Department Care Team (Late st Contact Info) Description 01/07/2009 Before PRISM Converted Visit (Maple) [facility] - [facility] conversion [address] [place] [address] Sabine Jimenez MD [address] [facility] [address] [place] [phone] Social History Tobacco Use Types Packs/Day Years Used Date Smoking Tobacco: Never Assessed Sex and Gender Information Value Date Recorded Sex Assigned at Not on file Gender Identity Female 08/11/2019 16:07 EST Sexual Orientation Not on file documented as of this encounter Progress Notes * Sabine Jimenez MD, MD - 10/16/2009 1556 EST PROGRESS/FOLLOWUP NOTE - 01/07/2009 [facility] REQUESTING PHYSICIAN Jean Munoz MD PROBLEM Ms Viera returns to the sleep center's outpatient clinic for a followup. SUBJECTIVE Since last seen she underwent an overnight sleep study that was completely normal with a total sleep time of 522 minutes. She also underwent an MSLT the next day. After all normal studies the next day she fell asleep on the average in 1 minute and 52 seconds and went into REM sleep in three out of four naps. These findings are consistent with a clinical history of narcolepsy. In the interim she has had multiple cervical diskectomies and the goal is that after she recovers from surgery she will be taken off the Vicodin and Lyrica. She continues to have rare episodes of cataplexy but they are mild and they do not bother her. GENERAL PHYSICAL EXAM Exam is not done today. ASSESSMENT Narcolepsy with cataplexy. PLAN 1. She has been started on Provigil 200 mg in the morning. She will try this for a couple of weeks and call me with a progress report . 2. She is advised of the risks of hypertension and headaches with it. 3. She will follow up in three months with Dr Caban. Signed by Sabine Jimenez MD 01/10/2009 09:16 Sabine Jimenez MD [facility] Diplomate - Sabine Jimenez MD - SANDRA Job ID: [id number] Doc ID: [id number] cc: Jean Munoz MD documented in this encounter Plan of Treatment Upcoming Encounters Date Type Department Care Team (Late st Contact Info) Description 06/29/2024 14:15 EDT Office Visit [facility] [address] [place], [place] [phone] Jean Munoz MD [address] [place] [phone] documented as of this encounter Visit Diagnoses Not on filedocumented in this encounter Care Teams Beam Carrier Hauler Pusher Relationship Specialty Start Date End Date Jean Munoz MD [address] [place] [phone] PCP - General 12/31/08 documented as of this encounter
--- OUTSIDE RECORDS SUMMARY | 2024-06-10 07:37 | XMS_ITS | Encounter Summary ---
Author Organization [facility] Address [address] [place] [address] Care Team Providers Care Aviation Mechanic Name Role Phone Unavailable Primary Care Provider Unavailabl e Encounter Details Date Type Department Care Team (Latest Contact Info) Description 11/26/2008 13:21 EDT [facility] [address] [place] [address] Cory Dewitt MD [address] [place] [phone] Discharge Disposition: Auto Discharge Social History Tobacco [...] 06/29/2024 14:15 EDT Office Visit [facility] [address] [place] [address] Jean Munoz MD [address] [place] [phone] documented as of this encounter Visit Diagnoses Not on filedocumented in this encounter
--- OUTSIDE RECORDS SUMMARY | 2024-06-10 07:37 | XMS_ITS | Encounter Summary ---
Author Organization [facility] Address [address] [place] [address] Care Team Providers Care Insurance Verifier Name Role Phone Jean Munoz MD Primary Care Provider Encounter Details Date Type Department Care Team (Late st Contact Info) Description 12/27/2008 Office Visit [facility] [place] [facility] [address] [place] [address] Татьяна Pro, EYEGLASS LENS GRINDER [address] [place] [address] Social History Tobacco Use Types Packs/Day Years Used Date Smoking Tobacco: Never Assessed Sex and Gender Information Value Date Recorded Sex Assigned at Not on file Gender Identity Female 08/11/2019 16:07 EST Sexual Orientation Not on file documented as of this encounter Progress Notes * Татьяна Pro - 05/21/2010 1509 EDT Care Center - Physician Summary Registration Date/Time: 12/27/2008 10:36 LABS, X-RAYS, AND EKG CBC: CBC is normal. Pulse Oximetry: O2 saturation- 99% (FIO2 - room air). Interpretation: normal. PROGRESS AND PROCEDURES E.D. Course: CC: 47 year old woman requests PREOPERATIVE HISTORY AND PHYSICAL prior to ACDF C4-7scheduled for 12/31/08 (MOR) Dr. Dewitt. (See also paper copy of [facility] H&P form) Dx today: O2 sat; CBC Copy of evaluation to Dr. Dewitt. ASA 2 Old records reviewed for PMH/ PSH, meds. Anesthesia Prescreen Evaluation form completed (see PICIS electronic document) Preoperative instructions reinforced. Questions answered. Copy of instructions provided to patient.(see Multi-Disciplinary Pt/ Family Ed Record) Has arranged for transportation and support at home. Anticipates GA. No further questions at this time. Assessment/ Plan: ???Stable cardio-pulmonary. Normal chest exam today. Clear lungs, normal O2 sat, no use of accessory muscles. No recent (>6 months) use of rescue inhaler. ???Stable/ resolved GERD (s/p [place]); OK flat. ???No NSAID, vits, herbals or supplements. ???No recent illness. Feeling well today. Exhibits appropriate judgment and insight into planned procedure. ???Tolerated past surgeries/ anesthetics without difficulty. ???Overall, I find no acute health changes with the potential to increase surgical risk. Low cardiac risk for non-cardiac procedure. STABLE FOR INTENDED PROCEDURE. . (Electronically signed by Jacques Hardy 12/31/2008 9:31) Care Center - Nursing Summary Registration Date/Time: 12/27/2008 10:36 documented in this encounter Plan of Treatment Upcoming Encounters Date Type Department Care Team (Late st Contact Info) Description 06/29/2024 14:15 EDT Office Visit [facility] [address] [place] [address] Jean Munoz MD [address] [place] [phone] documented as of this encounter Visit Diagnoses Not on filedocumented in this encounter Care Teams Insurance Verifier Relationship Specialty Start Date End Date Jean Munoz MD [address] [place] [phone] PCP - General 12/31/08 documented as of this encounter
--- OUTSIDE RECORDS SUMMARY | 2024-06-10 07:37 | XMS_ITS | Encounter Summary ---
Author Organization [facility] Address [address] [place] [address] Care Team Providers Care Sterile Supply Technician Name Role Phone Unavailable Primary Care Provider Unavailabl e Encounter Details Date Type Department Care Team (Late st Contact Info) Description 09/04/2008 13:09 EST Hospital Encounter [facility] - [place] [facility] [address] [place] [address] Jean Munoz MD [address] [place] [phone] Social History Tobacco Use Types Packs/Day [...] or slept in a fpc (including now)? Yes 07/15/2023 Interpersonal Safety Answer Date Record ed How often does anyone, claudia long family, hit, punch or physically hurt you? Never 07/15/2023 How often does anyone, incldean long family, [...] 17:54 EST documented as of this encounter Plan of Treatment Upcoming Encounters Date Type Department Care Team (Late st Contact Info) Description 06/29/2024 14:15 EDT Office Visit [facility] [address] [place] [address] Jean Munoz MD [address] [place] [phone] documented as of this encounter Visit Diagnoses Not on filedocumented in this encounter Additional Health Concerns Infection Onset Date Last Indicated Resolved Time R/O COVID-19 05/15/2022 05/15/2022 05/20/2022 22:1 6 EDT R/O COVID-19 11/14/2022 11/14/2022 11/14/2022 19:1 6 EST documented as of this encounter
--- OUTSIDE RECORDS SUMMARY | 2024-06-10 07:37 | XMS_ITS | Encounter Summary ---
Author Organization [facility] Address [address] [place] [address] Care Team Providers Care School Boat Driver Name Role Phone Jean Munoz MD Primary Care Provider Manny Rizzo MD Unavailable Afia Valle MD Unavailable Jesi Leong CONVEYOR LINE BAKERY WORKER Unavailable [place]i shanks CONVEYOR LINE BAKERY WORKER Unavailable Encounter Details Date Type Department Care Team (Late st Contact Info) Description 12/31/2008 Before PRISM Converted Visit (Maple) [facility] Spine Program - [address] [place], [place] [id number] Cory Dewitt MD [address] [place] [phone] Social History Tobacco Use Types Packs/Day [...] Visit [facility] [address] [place], [place] [phone] Jean Munoz MD [address] [place] [phone] documented as of this encounter Procedures Procedure Name Priority Date/Time Associated Diagnosis Comments CERVICAL SPINE 2-3 VIEWS 12/31/2008 11:29 EDT documented in this encounter Results * CERVICAL SPINE 2-3 VIEWS (12/31/2008 11:29 EDT) Anatomical Region Laterality Modality Other 12/31/2008 11:2 9 EDT Narrative 01/08/2009 3:05 EDT DISC DISPLACEMENT S/P ACDF R/O CHECK LEVEL CERVICAL SPINE 2-3 VIEWS ??Dec 31, 2008 11:29:00 AM Clinical History: DISC DISPLACEMENT S/P ACDF R/O CHECK LEVEL Comparison: 8:40 a.m. Findings: Plate and screws extending from C4 through C7. No hardware failure seen. Alignment near-anatomic. This is an interoperative portable fluoroscopic image Procedure Note El Padron MD - 01/08/2009 DISC DISPLACEMENT S/P ACDF R/O CHECK LEVEL CERVICAL SPINE 2-3 VIEWS Dec 31, 2008 11:29:00 AM Clinical History: DISC DISPLACEMENT S/P ACDF R/O CHECK LEVEL Comparison: 8:40 a.m. Findings: Plate and screws extending from C4 through C7. No hardware failure seen. Alignment near-anatomic. This is an interoperative portable fluoroscopic image Cory Dewitt MD IMG DIAGNOSTIC IMAGI NG ORDERABLES documented in this encounter Visit Diagnoses Not on filedocumented in this encounter Additional Health Concerns Infection Onset Date Last Indicated Resolved Time R/O COVID-19 05/15/2022 05/15/2022 05/20/2022 22:1 6 EDT R/O COVID-19 11/14/2022 11/14/2022 11/14/2022 19:1 6 EST documented as of this encounter Care Teams School Boat Driver Relationship Specialty Start Date End Date Jean Munoz MD [address] [place] [phone] PCP - General 12/31/08 Manny Rizzo MD [address] [place] [phone] 04/20/10 Afia Valle MD [address] [place] [address] [address] [place] [phone] MD Care Team Radiation Oncology 07/02/21 Jesi Leong [facility] [address] [place] [phone] Line Maintenance 12/24/21 09/20/22 Jesi Leong [facility] [address] [place] [phone] Behavioral Health Line MaintenanceDental Sales Representative Care 10/19/22 01/23/24 documented as of this encounter
--- OUTSIDE RECORDS SUMMARY | 2024-06-10 07:37 | XMS_ITS | Encounter Summary ---
Author Organization [facility] Address [address] [place] [address] Care Team Providers Care Hand Profiler Name Role Phone Unavailable Primary Care Provider Unavailabl e Encounter Details Date Type Department Care Team (Latest Contact Info) Description 11/06/2008 12:53 EST Hospital Encounter [facility] [place] conversion [address] [place] [address] Jean Munoz MD [address] [place] [phone] Discharge Disposition: Auto Discharge Social History [...] [facility] [address] [place] [address] Jean Munoz MD [address] [place] [phone] documented as of this encounter Visit Diagnoses Not on filedocumented in this encounter
--- OUTSIDE RECORDS SUMMARY | 2024-06-10 07:37 | XMS_ITS | Encounter Summary ---
Author Organization [facility] Address [address] [place] [address] Care Team Providers Care Business Manager [employer] Name Role Phone Unavailable Primary Care Provider Unavailabl e Encounter Details Date Type Department Care Team (Latest Contact Info) Description 12/04/2008 14:07 EDT Hospital Encounter [facility] [place] [address] [place] [address] Jean Munoz MD [address] [place] [phone] Discharge Disposition: Auto Discharge Social History [...] EDT Office Visit [facility] [address] [place], [place] [phone] Jean Munoz MD [address] [place] [phone] documented as of this encounter Visit Diagnoses Not on filedocumented in this encounter
--- OUTSIDE RECORDS SUMMARY | 2024-06-10 07:37 | XMS_ITS | Encounter Summary ---
Author Organization [facility] Address [address] [place] [address] Care Team Providers Care Grid Maker Name Role Phone Unavailable Primary Care Provider Unavailabl e Encounter Details Date Type Department Care Team (Late st Contact Info) Description 08/23/2008 12:27 EST Hospital Encounter [place] [phone] [place] [address] Jean Munoz MD [address] [place] [phone] Social History Tobacco Use Types Packs/Day [...] Visit [facility] [address] [place] [address] Jean Munoz MD [address] [place] [phone] documented as of this encounter Procedures Procedure Name Priority Date/Time Associated Diagnosis Comments RAD US PELVIS TRANSABDOMINAL AND TRANSVAGINAL 08/23/2008 13:14 EST documented in this encounter Results * RAD US PELVIS TRANSABDOMINAL AND TRANSVAGINAL (08/23/2008 13:14 EST) Anatomical Region Laterality Modality Other 08/23/2008 13:1 4 EST Narrative 01/28/2009 8:58 EDT Bilateral lower abdominal pain. History: ?? Bilateral lower abdominal pain. Transabdominal and endovaginal ultrasound of the pelvis was performed. Compare CT August 15, 2008. Findings: The uterus is absent. The right ovary is not visualized on either transabdominal or endovaginal ultrasound. The left ovary is not identified with confidence, but in the left adnexa, there is a 1.6 x 0.9 x 0.7 cm ovoid hypoechoic structure that resembles the ovary. However, because the pelvic CT did demonstrate the left ovary well 8 days ago, and at that time it measured 4.2 x 2.8 cm, I am not confident that this oval structure in the left adnexa represents the left ovary. There is no evidence of free fluid in the cul-de-sac. Impression: The patient's CT from August 15 of this year demonstrated a cystic left adnexal mass. Because the patient is status post hysterectomy, it makes the identification of the ovaries much more difficult. There is an oval structure in the left adnexa which measures approximately 1.6 cm in maximal ??dimension. I do not think that this represents the left ovary given the fact that the CT scan demonstrated the left ovary to measure 4.2 cm in maximum dimension. For this reason, a pelvic MR is recommended for further evaluation of the left ovary. Procedure Note Vane Dolan MD - 01/28/2009 Bilateral lower abdominal pain. History: Bilateral lower abdominal pain. Transabdominal and endovaginal ultrasound of the pelvis was performed. Compare CT August 15, 2008. Findings: The uterus is absent. The right ovary is not visualized on either transabdominal or endovaginal ultrasound. The left ovary is not identified with confidence, but in the left adnexa, there is a 1.6 x 0.9 x 0.7 cm ovoid hypoechoic structure that resembles the ovary. However, because the pelvic CT did demonstrate the left ovary well 8 days ago, and at that time it measured 4.2 x 2.8 cm, I am not confident that this oval structure in the left adnexa represents the left ovary. There is no evidence of free fluid in the cul-de-sac. Impression: The patient's CT from August 15 of this year demonstrated a cystic left adnexal mass. Because the patient is status post hysterectomy, it makes the identification of the ovaries much more difficult. There is an oval structure in the left adnexa which measures approximately 1.6 cm in maximal dimension. I do not think that this represents the left ovary given the fact that the CT scan demonstrated the left ovary to measure 4.2 cm in maximum dimension. For this reason, a pelvic MR is recommended for further evaluation of the left ovary. Jean Munoz MD IMG US ORDERABL ES documented in this encounter Visit Diagnoses Not on filedocumented in this encounter Additional Health Concerns Infection Onset Date Last Indicated Resolved Time R/O COVID-19 05/15/2022 05/15/2022 05/20/2022 22:1 6 EDT R/O COVID-19 11/14/2022 11/14/2022 11/14/2022 19:1 6 EST documented as of this encounter
--- OUTSIDE RECORDS SUMMARY | 2024-06-10 07:37 | XMS_ITS | Encounter Summary ---
Author Organization [facility] Address [address] [place] [address] Care Team Providers Care Sales Agent Casualty Insurance Name Role Phone Jean Munoz MD Primary Care Provider Encounter Details Date Type Department Care Team (Late st Contact Info) Description 07/29/2009 12:17 EST - 07/29/2009 23:39 [facility] Hospital Encounter [facility] Perioperative Services- [address] [phone] Afshan Ramey MD [address] [facility], [address] [place] [address] Discharge Disposition: Home or Self [...] on file documented as of this encounter Medications at Time of Discharge Medication Sig Dispensed Refills Start Date End Date atenolol (TENORMIN) 50 mg tablet Take 50 mg by mouth at bedtime. 11/21/2009 citalopram (CELEXA) 40 mg tablet Take 40 mg by mouth daily. 12/12/2009 hydrocodone-acetaminoph en (LORTAB) 5-500 mg Tab Take 1 Tab by mouth. 4 times a day for hip arthritic pain 11/21/2009 methylphenidate (RITALIN) 20 mg tablet Take 20 mg by mouth 2 times daily. 11/21/2009 oxycodone-acetaminophen (PERCOCET) 5-325 mg per tablet Take 1 Tab by mouth every 6 hours as needed for Pain. 25 0 04/04/2009 11/21/2009 pregabalin (LYRICA) 100 mg capsule Take 100 mg by mouth 3 times daily. 11/21/2009 promethazine (PHENERGAN) 25 mg tablet Take 25 mg by mouth as needed. 11/21/2009 ropinirole (REQUIP) 4 mg tablet Take 4 mg by mouth at bedtime. 11/21/2009 SENNOSIDES (SENEXON ORAL) Take 2 Tabs by mouth at bedtime. 11/21/2009 sumatriptan (IMITREX) 50 mg tablet Take 50 mg by mouth once as needed for Migraine. Gets 9 tabs a month and uses them all 08/11/2010 tizanidine (ZANAFLEX) 4 mg tablet Take 4 mg by mouth at bedtime. 11/21/2009 documented as of this encounter Discharge Disposition Disposition Code Departure Means Destination Home or Self Care documented in this encounter Procedure Notes * Inpatient, Physician - 07/30/2009 1052 ESTAssociated Order(s): ORDERS - SCANNED * Inpatient, Physician - 07/30/2009 1052 EST documented in this encounter OR Notes * Anesthesia Procedure Notes - CONTROL SYSTEMS DESIGNER, SCAN 2 - 02/01/2013 1521 EDT * Anesthesia Preprocedure Evaluation - Inpatient, Physician - 07/30/2009 1052 EST documented in this encounter Miscellaneous Notes * Scanned Note-Null - Inpatient, Physician - 07/30/2009 1052 EST * Scanned Note-Null - Inpatient, Physician - 07/30/2009 1052 EST * Brief Op Note - Inpatient, Physician - 07/30/2009 1052 EST documented in this encounter Plan of Treatment Upcoming Encounters Date Type Department Care Team (Late st Contact Info) Description 06/29/2024 14:15 EDT Office Visit [facility] [address] [place] [address] Jean Munoz MD [address] [place] [phone] documented as of this encounter Procedures Procedure Name Priority Date/Time Associated Diagnosis Comments ORDERS - SCANNED 07/30/2009 10:5 2 EST documented in this encounter Results * ORDERS - SCANNED (07/30/2009 10:52 EST) 07/30/2009 10:5 2 EST Narrative 07/30/2009 11:17 EST Ordered by an unspecified provider. Transcriptions Inpatient, Physician - 07/30/2009 10:52 EST Physician Inpatient MD ADMISSION ORDERAB LES documented in this encounter Visit Diagnoses Not on filedocumented in this encounter Care Teams Sales Agent Casualty Insurance Relationship Specialty Start Date End Date Jean Munoz MD [address] [place] [phone] PCP - General 12/31/08 documented as of this encounter
--- OUTSIDE RECORDS SUMMARY | 2024-06-10 07:37 | XMS_ITS | Encounter Summary ---
Author Organization [facility] Address [address] [place] [address] Care Team Providers Care Packing Inspector Name Role Phone Jean Munoz MD Primary Care Provider Encounter Details Date Type Department Care Team (Late st Contact Info) Description 11/26/2008 Before PRISM Converted Visit ([place]le) [facility] - [place] conversion [address] [place] [address] Cory Dewitt MD [address] [place] [phone] Social History Tobacco Use Types Packs/Day Years Used Date Smoking Tobacco: Never Assessed Sex and Gender Information Value Date Recorded Sex Assigned at Not on file Gender Identity Female 08/11/2019 16:07 EST Sexual Orientation Not on file documented as of this encounter Progress Notes * Cory Dewitt MD - 10/16/2009 1219 EST [facility] [address] [place], [place] [phone] PROGRESS/FOLLOWUP NOTE - 11/26/2008 Primary Care Provider: Jean Munoz MD Referred by: HIRAM Carrillo Attending: Cory Dewitt MD SUBJECTIVE Liset Viera is a 47-year-old female with 70% neck pain and 30% right greater than left arm pain, very likely due to multilevel degenerative changes and stenosis spanning C5-C7 but also including C4-5. Liset was seen back today with her friend for adiscussion of her bone scan results and further options for treatment. OBJECTIVE Liset has had no change in her examination today. Radiographs: We did review Jay[facility] plain x-rays of the cervical spine including flexion-extension views, her MRI as well as her more recent bone scan. Her bone scan demonstrated significant increased uptake in the C4-5 as well as C5-6 segments with less uptake in the C6-7 disk. Curiously her plain x-rays demonstrate the most severe degenerative changes at C5-6 and C6-7 but without any motion at these levels on flexion-extension views. The C4-5 segment though only moderately degenerative did demonstrate 1 to 2 mm of anterior listhesis on flexion with 1 to 2 mm of settling posteriorly on extension. In addition the lateral neutralupright films demonstrated approximately 6 degrees of kyphosis across the C5-C7 levels combined with 6 degrees of additional kyphosis at the C4-5 segment. The MRI confirmed these degenerative changes but also as previously noted demonstrated significant stenosis greater on the right than on the left at C5-6 and C6-7 but less stenosis at the C4-5 level. ASSESSMENT Liset Viera is a 47-year-old female with 70% neck pain and 30% arm pain, greater on the right than on the left, likely due to degenerative changes and stenosis spanning C4-C7. The greatest area of the degenerative change and stenosis appear to be C5-6 and C6-7, however, changes at the C4-5 level may indeed be contributing to her current pain and the C4-5 level may additionally be a source of mild excessive motion and kyphosis providing for some overall loss of alignment in the cervical spine.We did spend at least 40 minutes with Liset and her friend today in face to face discussion, examination and review of her multiple imaging studies with greater than 50% of the visit spent counseling her with respect to her options at this point in time. We discussed an anterior cervical diskectomy aimed at the two most significantly involved levels, C5-6 and C6-7 but spent the majority of the time discussingthe role of including or excluding the C4-5 level in this particular surgery. The pros and cons were discussed in great detail and at the end of this lengthy discussion a decision was madeto include this level and perform an anterior surgery spanning C4-C7. Though the degenerative changes at C4-5 were not terribly significant, the most compelling factors for including this level include 6 degrees of kyphosis at this level, some increased motion on flexion-extension and increased uptake at this level on the bone scan. Liset did ask appropriate questions regarding her surgery. We diddiscuss the surgery in great detail along with the associated risks and potential complications as well as expected outcomes. Liset understood all of these and both she and her friend asked appropriate questions and all of their questions were answered. She did wish to proceed as mentioned above. PLAN 1. Surgery will be scheduled at the next available time. ADDENDUM: We did discuss smoking cessation with Liset on her last visit but did not review this again today. We will contact her to assure that she has stopped smoking and obtain a carboxyhemoglobin prior to surgery. Signed by Cory Dewitt MD 12/04/2008 13:14 Cory Dewitt MD - Cory Dewitt MD - ALEX Job ID: [id number] Doc ID: [id number] cc: HIRAM Carrillo MD documented in this encounter Plan of Treatment Upcoming Encounters Date Type Department Care Team (Late st Contact Info) Description 06/29/2024 14:15 EDT Office Visit [facility] [address] [place] [address] Jean Munoz MD [address] [place] [phone] documented as of this encounter Visit Diagnoses Not on filedocumented in this encounter Care Teams Packing Inspector Relationship Specialty Start Date End Date Jean Munoz MD [address] [place] [phone] PCP - General 12/31/08 documented as of this encounter
--- OUTSIDE RECORDS SUMMARY | 2024-06-10 07:37 | XMS_ITS | Encounter Summary ---
Author Organization [facility] Address [address] [place] [address] Care Team Providers Care Working Supervisor Name Role Phone Jean Munoz MD Primary Care Provider Encounter Details Date Type Department Care Team (Late Contact Info) Description 07/30/2009 Orders Only [facility] Spine Program [place] [address] [place] [address] Cory Dewitt MD [address] [place] [phone] Social History Tobacco Use Types Packs/Day Years [...] Upcoming Encounters Date Type Department Care Team ([facility] Contact Info) Description 06/29/2024 14:15 EDT Office Visit [facility] [place] [address] [place] [address] Jean Munoz MD [address] [place] [phone] documented as of this encounter Procedures Procedure Name Priority Date/Time Associated Diagnosis Comments CERVICAL SPINE 2-3 VIEWS 07/30/2009 13:13 EST documented in this encounter Results * CERVICAL SPINE 2-3 VIEWS (07/30/2009 13:13 EST) Anatomical Region Laterality Modality Other 07/30/2009 13:1 3 EST 07/30/2009 16:06 EST Narrative 07/30/2009 16:06 EST CERVICAL SPINE 2-3 VIEWS ??Jul 30, 2009 01:13:00 PM Signs and Symptoms/Comments: ??Neck pain Findings: 2 views of the cervical spine are compared to those of April 08, 2009. The patient has undergone anterior fusion of C4-C7 with C4-C5, C5-C6, and C6-C7 bone grafts visible. There is good maturation of the bone graft material. Vertebral alignment is normal. There is no abnormality of the hardware noted. Procedure Note 07/30/2009 CERVICAL SPINE 2-3 VIEWS Jul 30, 2009 01:13:00 PM Signs and Symptoms/Comments: Neck pain Findings: 2 views of the cervical spine are compared to those of April 08, 2009. The patient has undergone anterior fusion of C4-C7 with C4-C5, C5-C6, and C6-C7 bone grafts visible. There is good maturation of the bone graft material. Vertebral alignment is normal. There is no abnormality of the hardware noted. Cory Dewitt MD IMG DIAGNOSTIC IMAGI NG ORDERABLES documented in this encounter Visit Diagnoses Not on filedocumented in this encounter Care Teams Working Supervisor Relationship Specialty Start Date End Date Jean Munoz MD [address] [place] [phone] PCP - General 12/31/08 documented as of this encounter
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
--- OUTSIDE RECORDS SUMMARY | 2024-06-10 07:37 | XMS_ITS | Encounter Summary ---
Author Organization [facility] Address [address] [place] [address] Care Team Providers Care Operation Research Analyst Name Role Phone Unavailable Primary Care Provider Unavailabl e Encounter Details Date Type Department Care Team (Latest Contact Info) Description 10/01/2008 13:15 EST Hospital Encounter [facility] [address] [place] [address] Jean Munoz MD [address] [place] [phone] Discharge Disposition: Auto Discharge Social History [...] Office Visit [facility] [address] [place], [place] [phone] Jean Munoz MD [address] [place] [phone] documented as of this encounter Procedures Procedure Name Priority Date/Time Associated Diagnosis Comments MR PELVIS FEMALE W/WO CONTRAST 10/01/2008 15:40 EST documented in this encounter Results * MR FEMALE PELVIS W/WO CONTRAST (10/01/2008 15:40 EST) Anatomical Region Laterality Modality Other 10/01/2008 15:4 0 EST Narrative 01/28/2009 11:11 EDT Pelvic pain. MR FEMALE PELVIS WWO/CONTRAST ??Oct 01, 2008 3:40:00 PM Signs and Symptoms: ??Pelvic pain. Technique: MR the pelvis including T1 and T2 axials, T1 and T2 fat-sat, T2 coronal and sagittal, T1 postcontrast. IV gadolinium contrast was administered for the study. Comparison: CT abdomen pelvis August 15, 2008, ultrasound pelvis August 23, 2008. Findings: The complex cystic structure seen on the comparison CT representing the left ovary is again visualized, however now appears smaller. The left ovary now measures approximately 11 x 18 mm in size and contains a tiny follicle. No solid or cystic left ovarian mass is seen. The right ovary measures approximately 25 x 20 mm in size with a 12 mm thin-walled cyst contained within it, representing a dominant follicle. There is a trace amount of free fluid in the pelvis. The patient is post hysterectomy. No pelvic mass is seen. The bone marrow signal is normal. There are no abnormally enlarged pelvic lymph nodes. Impression: 1. Left ovary appears unremarkable consistent with resolution of a physiologic cyst. 2. No pelvic mass. 3. Post hysterectomy. I have personally reviewed the images and the above interpretation and agree with the findings. Procedure Note Octavio Melendez DO / John Waters, PT - 01/28/2009 Pelvic pain. MR FEMALE PELVIS WWO/CONTRAST Oct 01, 2008 3:40:00 PM Signs and Symptoms: Pelvic pain. Technique: MR the pelvis including T1 and T2 axials, T1 and T2 fat-sat, T2 coronal and sagittal, T1 postcontrast. IV gadolinium contrast was administered for the study. Comparison: CT abdomen pelvis August 15, 2008, ultrasound pelvis August 23, 2008. Findings: The complex cystic structure seen on the comparison CT representing the left ovary is again visualized, however now appears smaller. The left ovary now measures approximately 11 x 18 mm in size and contains a tiny follicle. No solid or cystic left ovarian mass is seen. The right ovary measures approximately 25 x 20 mm in size with a 12 mm thin-walled cyst contained within it, representing a dominant follicle. There is a trace amount of free fluid in the pelvis. The patient is post hysterectomy. No pelvic mass is seen. The bone marrow signal is normal. There are no abnormally enlarged pelvic lymph nodes. Impression: 1. Left ovary appears unremarkable consistent with resolution of a physiologic cyst. 2. No pelvic mass. 3. Post hysterectomy. I have personally reviewed the images and the above interpretation and agree with the findings. Jean Munoz MD IMG MRI ORDERAB LES documented in this encounter Visit Diagnoses Not on filedocumented in this encounter
--- OUTSIDE RECORDS SUMMARY | 2024-06-10 07:37 | XMS_ITS | Encounter Summary ---
Author Organization [facility] Address [address] [place] [address] Care Team Providers Care Mangle Catcher Name Role Phone Jean Munoz MD Primary Care Provider Encounter Details Date Type Department Care Team (Latest Contact Info) Description 12/31/2008 6:04 EDT - 01/03/2009 11:59 EDT Hospital Encounter [facility] General Surgery Unit [address], [place] [address] Cory Dewitt MD [address] [place] [phone] Discharge Disposition: Home-Health Care Svc Social History Tobacco Use Types Packs/Day Years Used Date Smoking Tobacco: Never Assessed Sex and Gender Information Value Date Recorded Sex Assigned at Not on file Gender Identity Female 08/11/2019 16:07 EST Sexual Orientation Not on file documented as of this encounter Discharge Disposition Disposition Code Departure Means Destination Home-Health Care Svc documented in this encounter OR Notes * OR Surgeon - Cory Dewitt MD, MD - 12/31/2008 0000 EDT PROCEDURE REPORT PT TYPE: IP SERVICE DATE: 12/31/2008 SURGEON: Cory Dewitt MD FIELD SOFTWARE ENGINEER:Ronny GANDHI (No qualified resident was available to assist with this procedure. Therefore, the assistance of HIRAM White, was necessary). PREOPERATIVE DIAGNOSIS Degeneration in the cervical spine spanning C4-C7 with severe stenosis at C5-C6 and C6-C7 with additional degenerative issues at C4-C5. POSTOPERATIVE DIAGNOSIS Degeneration in the cervical spine spanning C4-C7 with severe stenosis at C5-C6 and C6-C7 with additional degenerative issues at C4-C5. PROCEDURE Anterior cervical diskectomy and fusion spanning C4-C7 with diskectomy and decompression at C5-C6 and at C6-C7, but diskectomy at C4-C5 only for fusion. Iliac crest bone graft allograft struts were used at each of the three disk levels with placement of an anterior plate. Ma-Wells tongs were used for skeletal skull traction during the procedure. ANESTHESIA General endotracheal. INDICATIONS Liset Viera is a 48female with both neck and right arm pain, most likely related to degenerative changes and stenosis spanning C4-C7 with significant right-sided stenosis at C5-C6 and C6-C7. Due tosevere pain, severe disability and the failure of conservative management over an extended period of time, Liset wished to consider surgery at this point in time. All options for treatment were discussed, both operative and nonoperative, along with the associated risks, potential complications and expected outcomes. Liset understood all of these and after a lengthy discussion we agreed upon an anterior cervical diskectomy and fusion spanning C4-C7. C5 and C6 were the most significantly involved segments with degenerative changes,as well as severe stenosis, more on the right than on the left, but C4-C5 appeared to be a contributor to neck pain and demonstrated some excessive motion on flexion and extension. We agreed to the use of allograft bone graft after diskectomies and use of an anterior plate. Liset asked appropriate questions regarding the surgery and all of her questions were answered. She also wished to proceed. NARRATIVE Liset Viera was brought to the operating room, properly identified and the intubated by the anesthesia department. After appropriate monitoring equipment was applied, she was placed in a supine position on the regular operating table with a towel roll between her shoulder blades to accentuate thecervical lordosis. Her head was appropriately padded. Ma-Wells tongs were placed in a standardsterile manner for inline skeletal skull traction with 10 pounds of traction applied. The arms werepadded and taped to the sides. Once the patient was in a stable and appropriate position on the operating table, the anterior neck was prepped and draped in the usual sterile fashion. Prior to initiation of the procedure, a time-out was called and a brief performed, outlining the goals of the procedure with the operating room personnel. The procedure wasinitiated with a horizontal left anterior neck incision approximately over the C5-C6 level. Marking film was taken to assure that the incision was placed appropriately to allow access to C4-C5 and to C6-C7. Sharp dissection was used through the skin, followed by electrocautery through the subcutaneous tissues. The subcutaneous tissues were undermined somewhat using Metzenbaum scissors and the platysma muscle split vertically with subsequent blunt dissection through the deep tissues down to the anterior aspect of the spine. This blunt dissection utilized the plane between the trachea and esophagus medially, as well as the strap muscles medially and the sternocleidomastoid, as well as carotid sheath and its contents laterally. The anterior cervical spine waseasily identified. A marking film was taken with a spinal needle in place to assure that the appropriate levels wereaddressed, and this marking film was confirmed with Radiology. Once the confirmation was obtained, dissection was carried out from C4 to S3amvua electrocautery to undermine the longus colli muscles. Mediolateral retractors were then placed underneath the longus colli muscles and then diskectomy wasperformed at C5-C6 first, C6-C7 subsequently and then at C4-C5. Diskectomies with decompression were performed in a similar manner at C5-C6 and C6-C7 using a 15-blade scalpel to enter the disk, Olivares elevator removed disk from the endplate, curettes and rongeurs to complete the diskectomy and enter the spinal canal posteriorly with use of microdissecting Faustina curettes to remove posterior longitudinal ligament, followed by use of microdissecting Kerrison rongeurs. Decompressions were performed posteriorly at both C5-C6 and C6-C7 with greater attention to the right side, as this was the more symptomatic side. At C4-C5 a diskectomy alone was accomplished with no entry into the spinal canal. Once the diskectomies were completed, the end plates were prepared using a 4 mm round bur to exposepunctate bleeding bone at all levels. An iliac crest allograftstruts were then cut to the appropriate height, contoured into lordosis and the appropriate depth and then tamped into place, first at C5-C6, which was the most symptomatic level, with some distraction applied to the cervical spine usingadditional pull on the Ma-Wells tongs. C6-C7 was then bone grafted with the strut grafts, followed by C4-C5. Once all bone grafts were in good position, an anterior plate was selected of the appropriate size and then placed under fluoroscopic imaging with screws at C4, C5, C6 and C7. Final films were taken after placement of the plate, demonstrating excellent position of instrumentation and bone graft and reasonable overall alignment of the cervical spine. At this point, the wound was copiously irrigated with antibiotic solution. The surrounding structures were inspected to ensure that no violations of these occurred prior to closure of the wound. Hemostasis was achieved prior to closure of the wound; however, it should be noted that this patient wassomewhat oozy from the bony surfaces during all aspects of the diskectomy and bone grafting. Nevertheless, after appropriate hemostasis was achieved, the wound was closed using 2-0 Vicryl sutures to reapproximate platysma muscle. Subcutaneous tissue was then closed using 2-0 Monocryl sutures with arunning 3-0 Monocryl stitch in the skin. Steri-Strips were applied, as well as a sterile dressing, which was taped in place. The patient tolerated the procedure well. She was taken to the ICU postoperatively in stable condition.It should be noted that the Ma- Wells tongs were removed at the endof the procedure without incident. Patient tolerated the procedure well and was taken to the ICU in stable condition postoperatively. Unless otherwise noted, there were no complications, no blood loss, cultures obtained, specimens removed, or drains retained. ESTIMATED BLOOD LOSS 300 mL. FLUIDS 1.7 L of crystalloid. URINE OUTPUT 800 mL. DRAINS None. SPECIMENS COMPLICATIONS None. Signed by Cory Dewitt MD 01/15/2009 19:21 Cory Dewitt MD - Cory Dewitt MD A - [facility] Job ID: [id number], [id number] Document ID: [id number] cc: MD Afshan Ochoa MD documented in this encounter Plan of Treatment Upcoming Encounters Date Type Department Care Team (Late st Contact Info) Description 06/29/2024 14:15 EDT Office Visit [facility] [address] [place] [address] Jean Munoz MD [address] [place] [phone] documented as of this encounter Procedures Procedure Name Priority Date/Time Associated Diagnosis Comments COMPLETE BLOOD COUNT AND DIFFERENTIAL Routine 01/02/2009 6:00 EDT BUN Routine 01/02/2009 6:00 EDT CREATININE Routine 01/02/2009 6:00 EDT ELECTROLYTES Routine 01/02/2009 6:00 EDT CERVICAL SPINE 2-3 VIEWS 01/01/2009 10:46 EDT COMPLETE BLOOD COUNT AND DIFFERENTIAL Routine 01/01/2009 6:00 EDT BUN Routine 01/01/2009 6:00 EDT CREATININE Routine 01/01/2009 6:00 EDT ELECTROLYTES Routine 01/01/2009 6:00 EDT MRSA PCR Routine 12/31/2008 7:58 EDT documented in this encounter Results * (ABNORMAL) HEMAGRAM AND DIFFERENTIAL (01/02/2009 6:00 EDT) WBC 8.03 4.0 - 12.4 K/cmm [facility] RBC 3.50(L) 3.86 - 5.04 M/cmm [facility] Hemoglobin 11.8 11.6 - 15.2 gm/dl [facility] HCT 33.5(L) 34.9 - 44.4 % [facility] MCV 96 81 - 98 fl [facility] MCH 33.7(H) 26.7 - 33.3 pg [facility] MCHC 35.3 32.1 - 35.9 gm/dl [facility] PLT 242 141 - 320 K/cmm [facility] RDW-CV 13.7 11.7 - 14.6 % [facility] Neutrophils 54.9 45.5 - 79.7 % [facility] Lymphocytes 32.6 15.0 - 46.8 % [facility] Monocytes 8.9 1.8 - 12.0 % [facility] Eosinophils 3.2 0.6 - 6.9 % [facility] Basophils 0.4 0.2 - 1.4 % [facility] ABS Neutrophils 4.41 2.20 - 8.85 K/cmm [facility] ABS Lymphs 2.62 1.09 - 3.30 K/cmm [facility] ABS Monocytes 0.72 0.1 - 0.8 K/cmm [facility] ABS Eosinophils 0.25 0.03 - 0.61 K/cmm [facility] ABS Basophils 0.03 0.01 - 0.11 K/cmm [facility] Type of Diff: Automated [facility] Blood specimen (specimen) 01/02/2009 6:00 EDT 01/02/2009 7:00 EDT Cory Dewitt MD PACKAGES & DNA PROBE ORDERABLES Performing Organization Address City/State/[facility] Co de Phone Number [facility] [address] [place] [address] * ELECTROLYTES (01/02/2009 6:00 EDT) Sodium 136 136 - 145 mEq/L [facility] Potassium 4.2 3.5 - 5.0 mEq/L [facility] Chloride 104 96 - 110 mEq/L [facility] CO2 28 24 - 32 mEq/L [facility] Blood specimen (specimen) 01/02/2009 6:00 EDT 01/02/2009 7:00 EDT Cory Dewitt MD CHEMISTRY & BLOOD GA S ORDERABLES Performing Organization Address [facility] Phone Number [facility] [address] [place] [address] * (ABNORMAL) CREATININE (01/02/2009 6:00 EDT) Creatinine 0.59(L) 0.7 - 1.5 mg/dl [facility] GFR, Calculated >60 ml/min/1.7 3m2 [facility] Blood specimen (specimen) 01/02/2009 6:00 EDT 01/02/2009 7:00 EDT Cory Dewitt MD CHEMISTRY & BLOOD GA S ORDERABLES Performing Organization Address [facility] de Phone Number [facility] [address] [place] [address] * BUN (01/02/2009 6:00 EDT) BUN 10 10 - 26 mg/dl [facility] Blood specimen (specimen) 01/02/2009 6:00 EDT 01/02/2009 7:00 EDT Cory Dewitt MD CHEMISTRY & BLOOD GA S ORDERABLES Performing Organization Address [facility] Phone Number [facility] [address] [place] [address] * CERVICAL SPINE 2-3 VIEWS (01/01/2009 10:46 EDT) Anatomical Region Laterality Modality Other 01/01/2009 10:4 6 EDT 01/01/2009 13:44 EDT Narrative 01/01/2009 13:44 EDT CERVICAL SPINE 2-3 VIEWS ??Jan 01, 2009 10:46:00 AM Signs and Symptoms: ??Degeneration of cervical intervertebral disc. C4-7 ACDF. Evaluate with upright . Findings: Patient is status post C4-C7 anterior cervical discectomy and fusion. There is no evidence of hardware failure. Cervical spine alignment is normal. Procedure Note 01/02/2009 CERVICAL SPINE 2-3 VIEWS Jan 01, 2009 10:46:00 AM Signs and Symptoms: Degeneration of cervical intervertebral disc. C4-7 ACDF. Evaluate with upright . Findings: Patient is status post C4-C7 anterior cervical discectomy and fusion. There is no evidence of hardware failure. Cervical spine alignment is normal. Chaitanya Amanda MD IMG DIAGNOST IC IMAGING ORDERABLES * (ABNORMAL) HEMAGRAM AND DIFFERENTIAL (01/01/2009 6:00 EDT) WBC 10.15 4.0 - 12.4 K/cmm [facility] RBC 3.34(L) 3.86 - 5.04 M/cmm [facility] Hemoglobin 11.2(L) 11.6 - 15.2 gm/dl [facility] HCT 31.8(L) 34.9 - 44.4 % [facility] MCV 95 81 - 98 fl [facility] MCH 33.4(H) 26.7 - 33.3 pg [facility] MCHC 35.0 32.1 - 35.9 gm/dl [facility] PLT 242 141 - 320 K/cmm [facility] RDW-CV 13.3 11.7 - 14.6 % [facility] Neutrophils 66.0 45.5 - 79.7 % [facility] Lymphocytes 21.3 15.0 - 46.8 % [facility] Monocytes 10.8 1.8 - 12.0 % [facility] Eosinophils 1.4 0.6 - 6.9 % [facility] Basophils 0.5 0.2 - 1.4 % [facility] ABS Neutrophils 6.69 2.20 - 8.85 K/cmm [facility] ABS Lymphs 2.16 1.09 - 3.30 K/cmm [facility] ABS Monocytes 1.10(H) 0.1 - 0.8 K/cmm [facility] ABS Eosinophils 0.14 0.03 - 0.61 K/cmm [facility] ABS Basophils 0.05 0.01 - 0.11 K/cmm [facility] Type of Diff: Automated [facility] Blood specimen (specimen) 01/01/2009 6:00 EDT 01/01/2009 6:39 EDT Cory Dewitt MD PACKAGES & DNA PROBE ORDERABLES Performing Organization Address [facility] Phone Number [facility] [address] [place] [address] * ELECTROLYTES (01/01/2009 6:00 EDT) Sodium 136 136 - 145 mEq/L [facility] Potassium 3.7 3.5 - 5.0 mEq/L [facility] Chloride 104 96 - 110 mEq/L [facility] CO2 27 24 - 32 mEq/L [facility] Blood specimen (specimen) 01/01/2009 6:00 EDT 01/01/2009 6:39 EDT Cory Dewitt MD CHEMISTRY & BLOOD GA S ORDERABLES Performing Organization Address [facility] Phone Number [facility] [address] [place] [address] * (ABNORMAL) CREATININE (01/01/2009 6:00 EDT) Creatinine 0.58(L) 0.7 - 1.5 mg/dl [facility] GFR, Calculated >60 ml/min/1.7 3m2 [facility] Blood specimen (specimen) 01/01/2009 6:00 EDT 01/01/2009 6:39 EDT Cory Dewitt MD CHEMISTRY & BLOOD GA S ORDERABLES Performing Organization Address [facility] Phone Number [facility] [address] [place] [address] * (ABNORMAL) BUN (01/01/2009 6:00 EDT) BUN 9(L) 10 - 26 mg/dl [facility] Blood specimen (specimen) 01/01/2009 6:00 EDT 01/01/2009 6:39 EDT Cory Dewitt MD CHEMISTRY & BLOOD GA S ORDERABLES [facility] [address] [place] [address] * MRSA MOLECULAR DETECTION (12/31/2008 7:58 EDT) Specimen Description Nasal [facility] Result NEGATIVE for Methicillin Resistant Staphylococcus aureus DNA by PCR. [facility] Report Status Final 01/01/2009 [facility] 12/31/2008 7:58 EDT 12/31/2008 14:32 EDT Cory Dewitt MD MICROBIOLOGY - GENER AL ORDERABLES [facility] [address] [place] [address] documented in this encounter Visit Diagnoses Not on filedocumented in this encounter Care Teams Mangle Catcher Relationship Specialty Start Date End Date Jean Munoz MD [address] [place] [phone] PCP - General 12/31/08 documented as of this encounter
--- OUTSIDE RECORDS SUMMARY | 2024-06-10 07:37 | XMS_ITS | Encounter Summary ---
Author Organization [facility] Address [address] [place] [address] Care Team Providers Care Windows Server Engineer Name Role Phone Unavailable Primary Care Provider Unavailabl e Encounter Details Date Type Department Care Team (Late st Contact Info) Description 10/04/2008 8:55 EST Hospital Encounter [facility] [address] [place] [address] Jean Munoz MD [address] [place] [phone] Social History Tobacco Use Types Packs/Day [...] [facility] [address] [place] [address] Jean Munoz MD [address] [place] [phone] documented as of this encounter Visit Diagnoses Not on filedocumented in this encounter Additional Health Concerns Infection Onset Date Last Indicated Resolved Time R/O COVID-19 05/15/2022 05/15/2022 05/20/2022 22:1 6 EDT R/O COVID-19 11/14/2022 11/14/2022 11/14/2022 19:1 6 EST documented as of this encounter
--- OUTSIDE RECORDS SUMMARY | 2024-06-10 07:37 | XMS_ITS | Encounter Summary ---
Author Organization [facility] Address [address] [place] [address] Care Team Providers Care Senior Backup Administrator Name Role Phone Jean Munoz MD Primary Care Provider Encounter Details Date Type Department Care Team (Late st Contact Info) Description 01/04/2009 15:04 EDT - 01/04/2009 20:29 EDT [facility] [address] [place] [address] Emergency, MD Ismael Discharge Disposition: Home or Self Care Social History Tobacco Use Types Packs/Day Years Used Date Smoking Tobacco: Never Assessed Sex and Gender Information Value Date Recorded Sex Assigned at Not on file Gender Identity Female 08/11/2019 16:07 EST Sexual Orientation Not on file documented as of this encounter Discharge Disposition Disposition Code Departure Means Destination Home or Self Care documented in this encounter Miscellaneous Notes * ED Consult - Jose Arndt MD - 01/04/2009 0000 EDT EMERGENCY ROOM CONSULTATION SERVICE DATE: 01/04/2009 APPROXIMATE TIME: 6 p.m. REASON FOR CONSULTATION I was asked by Jos GANDHI to see Ms Viera in consultation for intermittent hypotension four days postop from cervical fusion. 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 OnDecember 31, 2008, she underwent anterior cervical diskectomy and fusion from C4 to C7 iliac crest bone graft by Dr Dewitt. She was discharged from the hospital yesterday. She returns to the emergency manoj this evening at the request of her primary care doctor. Apparently, she was at home with her homehealth nurse who took a blood pressure recording of 70/40. The patient does report that she has been dizzy at times, has had difficulty initiatinga urinary stream, and does note some mild difficulty swallowing. Otherwise, her pain has been reasonably controlled at home. She is on oxycodone 5-25 mg p.o. every three hours as needed for pain. She was discharged with 100 pills. PAST MEDICAL HISTORY Asthma, migraines, hypertension, depression, ovarian cyst. PAST SURGICAL HISTORY Aspen fundoplication for reflux, left shoulder surgery, hysterectomy in 1986. ALLERGIES No known drug allergies. REVIEW OF SYSTEMS Review of systems was conducted and is documented on the ER intake form on the T system. FAMILY HISTORY Family history is significant for father who had similar neck problems, which required surgery. SOCIAL HISTORY Liset is a ??-jtlk-itb-yzy smoker. She drinks alcohol rarely. PHYSICAL EXAMINATION Upon exam today, Jayden vital signs are blood pressure 84/53, heart rate 72, respirations 16, oxygensaturation 97% on room air. Liset is well appearing. She speaks with clear speech. There is no hoarseness in her voice. She doeshave a C-collar on. The front of the C-collar was removed to examine the wound. The wound is clean,dry and intact. There is no evidence of drainage or hematoma. Her upper extremity exam is overall unremarkable. 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 She is somewhat weak in shoulder external rotation and deltoid with a 4+/5 in these groups. She is 5/5 in all lower extremity groups. Her sensation to light touch is intact in C5 though T1 and L2 through S2. She has noclonus and no Olivares.Her reflexes are 2+ bilateral patella, 1+ bilateral ankle jerk. Upper extremity reflexes were not tested. The patient has palpable distal pulses in all four extremities. IMAGING Images reviewed today include orthogonal views of the cervical spine, which demonstrate hardware kaity in good position, no change in alignment. Prevertebral soft tissues are within normal limits. LABORATORY White count 13.64, hemoglobin 12.3, hematocrit 35.4, platelets 283. Neutrophils 75.7, lymphocytes 14.6. INR is 0.9. UA was negative. ASSESSMENT AND PLAN Liset is now four days out from anterior cervical fusion from C4 to C7. She had a measured episode of hypotension today by the visiting nurses. However, throughout her emergency room visit and during her examination her systolic blood pressures anywhere between 85 and 99. She was asymptomatic and reported no lightheadedness and was appropriate throughout the exam. There is no evidence of hematoma at the incision site, no evidence of airway compromise secondary to a possible hematoma. With regardto the urinary retention, it is likely this is secondary to narcotic use as this likely explains her intermittent hypotension as well. I discussed this case with Dr Clifton and Dr Hawkins who agreed with the plan of reducing the patientnarcotics and discharging her to home to be continued to be followedby the visiting nurses. She should return if she has any severe episodes of dizziness or certainly if she passes out, if she has any increased difficulty swallowing or with speaking. The emergency room will provide her with appropriate narcotics prescription upon discharge. This case was discussed with Dr Hawkins. Signed by Jose Arndt MD 01/08/2009 09:35 Jose Arndt MD - Jose Arndt MD A - JAW Job ID: [id number] Document ID: [id number] cc: MD Jean Santana MD documented in this encounter Plan of Treatment Upcoming Encounters Date Type Department Care Team (Late st Contact Info) Description 06/29/2024 14:15 EDT Office Visit [facility] [address] [place] [address] Jean Munoz MD [address] [place] [phone] documented as of this encounter Procedures Procedure Name Priority Date/Time Associated Diagnosis Comments URINE SEDIMENT (MICRO) WITHOUT REFLEX TO CULTURE Routine 01/04/2009 17:55 EDT BACTERIAL CULTURE, URINE Routine 01/04/2009 17:55 EDT CERVICAL SPINE 2-3 VIEWS 01/04/2009 16:44 EDT SCREENING GLUCOSE Routine 01/04/2009 16: 15 EDT HOLD GREEN TOP Routine 01/04/2009 16:15 EDT PTT Routine 01/04/2009 16:15 EDT PROTIME Routine 01/04/2009 16:15 EDT COMPLETE BLOOD COUNT AND DIFFERENTIAL Routine 01/04/2009 16:15 EDT BUN Routine 01/04/2009 16:15 EDT CREATININE Routine 01/04/2009 16:15 EDT ELECTROLYTES Routine 01/04/2009 16:15 EDT CHEST PA AND LATERAL 01/04/2009 15:50 EDT documented in this encounter Results * BACTERIAL CULTURE, URINE (01/04/2009 17:55 EDT) Specimen Description Urine [facility] Result Greater than 100,000 CFU/ml ESCHERICHIA COLI [facility] Report Status Final 01/06/2009 [facility] 01/04/2009 17:5 5 EDT 01/04/2009 17:59 EDT Narrative Organism Antibiotic Method Susceptibility Greater than 100,000 cfu/ml escherichia coli Ampicillin SUSCEPTIBILITY (WINNIE) <=2 Susceptible Greater than 100,000 cfu/ml escherichia coli Cefazolin SUSCEPTIBILITY (WINNIE) <=4 Susceptible Greater than 100,000 cfu/ml escherichia coli Gentamicin SUSCEPTIBILITY (WINNIE) <=1 Susceptible Greater than 100,000 cfu/ml escherichia coli Trimethoprim-Sulfametho xazole SUSCEPTIBILITY (WINNIE) <=20 Susceptible Greater than 100,000 cfu/ml escherichia coli Nitrofurantoin SUSCEPTIBILITY (WINNIE) <=16 Susceptible Greater than 100,000 cfu/ml escherichia coli Tobramycin SUSCEPTIBILITY (WINNIE) <=1 Susceptible Greater than 100,000 cfu/ml escherichia coli Amikacin SUSCEPTIBILITY (WINNIE) <=2 Susceptible Greater than 100,000 cfu/ml escherichia coli Imipenem SUSCEPTIBILITY (WINNIE) <=1 Susceptible Greater than 100,000 cfu/ml escherichia coli Piperacillin SUSCEPTIBILITY (WINNIE) <=4 Susceptible Greater than 100,000 cfu/ml escherichia coli Ceftriaxone SUSCEPTIBILITY (WINNIE) <=1 Susceptible Greater than 100,000 cfu/ml escherichia coli Ciprofloxacin SUSCEPTIBILITY (WINNIE) <=0.25 Susceptible Greater than 100,000 cfu/ml escherichia coli Piperacillin Tazobactam SUSCEPTIBILITY (WINNIE) <=4 Susceptible Default Emergency MICROBIOLOGY - GENE RAL ORDERABLES Performing Organization Address [facility] de Phone Number [facility] [address] [place] [address] * (ABNORMAL) URINE MICROSCOPIC ONLY (01/04/2009 17:55 EDT) WBC, UA 1 to 5 0 - 5 /HPF [facility] RBC 1 to 5 0 - 5 /HPF [facility] Squam Epithel, UA Few(A) NS /HPF [facility] Renal Epithel, UA None seen NS /HPF [facility] Bacteria, UA Many(A) NS /HPF [facility] Crystal, Fluid None seen /HPF [facility] Hyaline Casts, UA None seen /LPF [facility] Comment Microscopic results are unreliable on urines unrefrig >2hrs or refrig >8hrs. [facility] 01/04/2009 17:5 5 EDT 01/04/2009 17:59 EDT Default Emergency URINALYSIS ORDERABL ES Performing Organization Address [facility] Co de Phone Number [facility] [address] [place] [address] * CERVICAL SPINE 2-3 VIEWS (01/04/2009 16:44 EDT) Anatomical Region Laterality Modality Other 01/04/2009 16:4 4 EDT 01/04/2009 16:52 EDT Narrative 01/04/2009 16:52 EDT CERVICAL SPINE 2-3 VIEWS ??Jan 04, 2009 4:44:00 PM Clinical history: s/p c-4-7 fixation r/o check hardware Comparison: December 31, 2008. Findings: Lateral and AP views of the cervical spine show anterior cervical fusion with plate and screws through the C4-C7 level. There is no evidence of hardware failure. The fusion plate is flush with the anterior portion of the vertebral bodies. There is mild prevertebral soft tissue swelling with the patient recently postoperative. No fractures are seen. I have personally reviewed the images and the above interpretation and agree with the findings. Procedure Note Uli Maza MD / Uli Maza MD / Uli Maza MD - 01/30/2009 CERVICAL SPINE 2-3 VIEWS Jan 04, 2009 4:44:00 PM Clinical history: s/p c-4-7 fixation r/o check hardware Comparison: December 31, 2008. Findings: Lateral and AP views of the cervical spine show anterior cervical fusion with plate and screws through the C4-C7 level. There is no evidence of hardware failure. The fusion plate is flush with the anterior portion of the vertebral bodies. There is mild prevertebral soft tissue swelling with the patient recently postoperative. No fractures are seen. I have personally reviewed the images and the above interpretation and agree with the findings. Jos GANDHI IMG DIAGNOSTIC IMAGI NG ORDERABLES * PTT (01/04/2009 16:15 EDT) PTT 30 20 - 35 secs [facility] Comment:Therapeutic Heparin range: 60-100 seconds Blood specimen (specimen) 01/04/2009 16:15 EDT 01/04/2009 16:23 EDT Default Emergency MD HEMATOLOGY & PF4 OR DERABLES [facility] [address] [place] [address] * PROTIME (01/04/2009 16:15 EDT) Pro Time 12.7 12.0 - 15.0 secs [facility] I.N.R. 0.9 0.9 - 1.1 Ratio [facility] Comment: Moderate Intensity Coumadin INR = 2.0-3.0 Adjustments in anticoagulant therapy dose should be based upon the INR and NOT the Pro Time. Blood specimen (specimen) 01/04/2009 16:15 EDT 01/04/2009 16:23 EDT Default Emergency MD HEMATOLOGY & PF4 OR DERABLES Performing Organization Address [facility] de Phone Number [facility] [address] [place] [address] * SCREENING GLUCOSE (01/04/2009 16:15 EDT) Pathologist [facility] Glucose, Screening 82 70 - 100 mg/dl [facility] Blood specimen (specimen) 01/04/2009 16:15 EDT 01/04/2009 16:23 EDT Default Emergency MD CHEMISTRY & BLOOD G ORDERABLES Performing Organization Address [facility] Phone Number [facility] [address] [place] [address] * CREATININE (01/04/2009 16:15 EDT) Pathologist [facility] Creatinine 0.70 0.7 - 1.5 mg/dl [facility] GFR, Calculated >60 ml/min/1.7 3m2 [facility] Blood specimen (specimen) 01/04/2009 16:15 EDT 01/04/2009 16:23 EDT Default Emergency MD CHEMISTRY & BLOOD G ORDERABLES Performing Organization Address [facility] de Phone Number [facility] [address] [place] [address] * (ABNORMAL) BUN (01/04/2009 16:15 EDT) Pathologist [facility] BUN 9(L) 10 - 26 mg/dl [facility] Blood specimen (specimen) 01/04/2009 16:15 EDT 01/04/2009 16:23 EDT Default Emergency MD CHEMISTRY & BLOOD G ORDERABLES Performing Organization Address [facility] de Phone Number [facility] [address] [place] [address] * ELECTROLYTES (01/04/2009 16:15 EDT) Pathologist [facility] Sodium 136 136 - 145 mEq/L [facility] Potassium 3.9 3.5 - 5.0 mEq/L [facility] Chloride 98 96 - 110 mEq/L [facility] CO2 31 24 - 32 mEq/L [facility] Blood specimen (specimen) 01/04/2009 16:15 EDT 01/04/2009 16:23 EDT Default Emergency MD CHEMISTRY & BLOOD G ORDERABLES Performing Organization Address [facility] Phone Number [facility] [address] [place] [address] * HOLD GREEN TOP (01/04/2009 16:15 EDT) Pathologist [facility] Hold Green Top Hold for further testing. Specimen will be held for 5 days. [facility] Blood specimen (specimen) 01/04/2009 16:15 EDT 01/04/2009 16:23 EDT Default Emergency MD LAB INFO SERVICE AN D SUPPORT & PHONE RESULT Performing Organization Address [facility] de Phone Number [facility] [address] [place] [address] * (ABNORMAL) HEMAGRAM AND DIFFERENTIAL (01/04/2009 16:15 EDT) Pathologist [facility] WBC 13.64(H) 4.0 - 12.4 K/cmm [facility] RBC 3.68(L) 3.86 - 5.04 M/cmm [facility] Hemoglobin 12.3 11.6 - 15.2 gm/dl [facility] HCT 35.4 34.9 - 44.4 % [facility] MCV 96 81 - 98 fl [facility] MCH 33.5(H) 26.7 - 33.3 pg [facility] MCHC 34.9 32.1 - 35.9 gm/dl [facility] PLT 283 141 - 320 K/cmm [facility] RDW-CV 13.2 11.7 - 14.6 % [facility] Neutrophils 75.7 45.5 - 79.7 % [facility] Lymphocytes 14.6(L) 15.0 - 46.8 % [facility] Monocytes 6.3 1.8 - 12.0 % [facility] Eosinophils 3.2 0.6 - 6.9 % [facility] Basophils 0.2 0.2 - 1.4 % [facility] ABS Neutrophils 10.34(H) 2.20 - 8.85 K/cmm [facility] ABS Lymphs 1.99 1.09 - 3.30 K/cmm [facility] ABS Monocytes 0.86(H) 0.1 - 0.8 K/cmm [facility] ABS Eosinophils 0.43 0.03 - 0.61 K/cmm [facility] ABS Basophils 0.03 0.01 - 0.11 K/cmm [facility] Type of Diff: Automated [facility] Blood specimen (specimen) 01/04/2009 16:15 EDT 01/04/2009 16:23 EDT Default Emergency MD PACKAGES & DNA PROB E ORDERABLES [facility] [address] [place] [address] * CHEST PA AND LATERAL (01/04/2009 15:50 EDT) Anatomical Region Laterality Modality Other 01/04/2009 15:5 0 EDT 01/04/2009 16:51 EDT Narrative 01/04/2009 16:51 EDT CHEST PA AND LAT ??Jan 04, 2009 3:50:00 PM Clinical history: patient left sided wheezing, status post surgery, rule out PNA Comparison: April 04, 2006. Findings: PA and lateral views of the chest show interval placement of cervical disc fusion plate and screws. The lungs are clear, the cardiomediastinal contour and pulmonary vasculature are normal. There are no pleural effusions. Evaluation of the osseous structures shows no acute abnormality. Clips are present at the GE junction. Impression: 1. No pneumonia. I have personally reviewed the images and the above interpretation and agree with the findings. Procedure Note Uli Maza MD / Uli Maza MD / Uli Maza MD - 01/30/2009 CHEST PA AND LAT Jan 04, 2009 3:50:00 PM Clinical history: patient left sided wheezing, status post surgery, rule out PNA Comparison: April 04, 2006. Findings: PA and lateral views of the chest show interval placement of cervical disc fusion plate and screws. The lungs are clear, the cardiomediastinal contour and pulmonary vasculature are normal. There are no pleural effusions. Evaluation of the osseous structures shows no acute abnormality. Clips are present at the GE junction. Impression: 1. No pneumonia. I have personally reviewed the images and the above interpretation and agree with the findings. Jos GANDHI IMG DIAGNOSTIC IMAGI NG ORDERABLES documented in this encounter Visit Diagnoses Not on filedocumented in this encounter Care Teams Senior Backup Administrator Relationship Specialty Start Date End Date Jean Munoz MD [address] [place] [phone] PCP - General 12/31/08 documented as of this encounter
--- OUTSIDE RECORDS SUMMARY | 2024-06-10 07:37 | XMS_ITS | Encounter Summary ---
Author Organization [facility] Address [address] [place] [address] Care Team Providers Care Youth Nutritional Monitor Name Role Phone Jean Munoz MD Primary Care Provider Encounter Details Date Type Department Care Team (Late st Contact Info) Description 12/27/2008 Before PRISM Converted Visit ([facility]) [facility] Pre-Operative Services - [facility] [address] [place] [address] Close, Татьяна Yee, PROFESSIONAL MODEL [address] [place] [address] [place] [phone] Social History Tobacco Use Types Packs/Day Years [...] 14:[address] [facility] Family Medicine - [place] [address], [place] [phone] Jean Munoz MD [address] [place] [phone] documented as of this encounter Procedures Procedure Name Priority Date/Time Associated Diagnosis Comments CARBOXYHEMOGLOBIN Routine 12/27/2008 12: 12 EDT documented in this encounter Results * CARBOXYHEMOGLOBIN (12/27/2008 12:12 EDT) Carboxyhemoglobin 6.1 % [facility] Comment: Normal=<1.5% Smoker=<5% Hgb may affect results. 12/27/2008 12:1 2 EDT 12/27/2008 12:15 EDT Татьяна L Close PROFESSIONAL MODEL CHEMISTRY & BLOOD GA S ORDERABLES Performing Organization Address City/State/[facility] Co de Phone Number [facility] [address] [place] [address] documented in this encounter Visit Diagnoses Not on filedocumented in this encounter Care Teams Youth Nutritional Monitor Relationship Specialty Start Date End Date Jean Munoz MD [address] [place] [phone] PCP - General 12/31/08 documented as of this encounter
--- OUTSIDE RECORDS SUMMARY | 2024-06-10 07:37 | XMS_ITS | Encounter Summary ---
Author Organization [facility] Address [address] [place] [address] Care Team Providers Care Service Delivery Analyst Name Role Phone Jean Munoz MD Primary Care Provider Encounter Details Date Type Department Care Team (Late st Contact Info) Description 07/11/2009 Abstract Used for ABSTRACTING Data [phone] Jean Munoz MD [address] [place] [phone] Social History Tobacco Use Types Packs/Day [...] [facility] [place] [address] [place] [address] Jean Munoz MD [address] [place] [phone] documented as of this encounter Visit Diagnoses Not on filedocumented in this encounter Care Teams Service Delivery Analyst Relationship Specialty Start Date End Date Jean Munoz MD [address] [place] [phone] PCP - General 12/31/08 documented as of this encounter
--- OUTSIDE RECORDS SUMMARY | 2024-06-10 07:37 | XMS_ITS | Encounter Summary ---
Author Organization [facility] Address [address] [place] [address] Care Team Providers Care Loan Specialist Name Role Phone Jean Munoz MD Primary Care Provider Encounter Details Date Type Department Care Team (Late st Contact Info) Description 08/06/2009 Orders Only [address] [address] Jean Munoz MD [address] [place] [phone] Social History Tobacco Use Types Packs/Day [...] Info) Description 06/29/2024 14:15 EDT Office Visit [address] [address] Jean Munoz MD [address] [place] [phone] documented as of this encounter Visit Diagnoses Not on filedocumented in this encounter Care Teams Loan Specialist Relationship Specialty Start Date End Date Jean Munoz MD [address] [place] [phone] PCP - General 12/31/08 documented as of this encounter
--- OUTSIDE RECORDS SUMMARY | 2024-06-10 07:37 | XMS_ITS | Encounter Summary ---
Author Organization [facility] Address [address] [place] [address] Care Team Providers Care Edging Machine Feeder Name Role Phone Jean Munoz MD Primary Care Provider Encounter Details Date Type Department Care Team (Late st Contact Info) Description 12/17/2008 Before PRISM Converted Visit (Maple) [facility] - Maple conversion [address] [place] [address] Giovanna Miguel MD FA HOUSE STAFF MAIL [address] [place] [address] Social History Tobacco Use Types Packs/Day Years Used Date Smoking Tobacco: Never Assessed Sex and Gender Information Value Date Recorded Sex Assigned at Not on file Gender Identity Female 08/11/2019 16:07 EST Sexual Orientation Not on file documented as of this encounter Miscellaneous Notes * Study - Giovanna Miguel - 10/16/2009 1433 EST [facility] DATE: 12/16/2008 IDENTIFICATION Last Name: Maximiliano First Name: Liset Recording Date: 12/16/2008 Date of : 1960 Height: 64 inches Age: 47 years Weight: 171 pounds Sex: F Study #: [id number] INDICATION FOR STUDY EDS MEDICATIONS: Advair, Albuterol, Tizanidine, Requip, Lyrica, Vicodin, Imitrex, Atenolol, Temazepam, Lyrica, Vicodin, Chantix, Imitrex. STUDY RESULTS overnight sleep study consisted of left and right EOG, sub-mental EMG, left and right anterior tibialis EMG, central and occipital EEG, ECG waveform, airflow and respiratory effort assessment, pulse oximetry and video monitoring. The study started at 10:39:18 PM and ended at 7:51:18 AM. The total recording time was 552.0 minutes with a total sleep time of 521.5 minutes. The patients sleep latency was 3.0 minutes with 0.0minutes of wake time recorded after sleep onset. The sleep efficiency was 94.5%. Total wake time during the night was 30.5 minutes, which was 5.5% of the total recording time. The sleep stage percentages are as follows: N1 4.5% N2 83.6% N3 0.0% REM 11.9% The patient had a total of 0 respiratory events for an AHI of 0.0 per hour plus 5 RERAs for an RDI of 0.6 per hour. The RERAs occurred in NREM sleep. The patient spent 195.5 minutes supine with a positional RDI of 0.0 events per hour. A total of 60.7 minutes were recorded in the left lateral body position with a positional RDI of 0.0events per hour. A total of 237.4 were recorded in the right lateral body position with a positional RDI of 0.0 events per hour. The average O2 saturation (SpO2) for the night was 96%, with the minimum being at 91%. Saturation of less than 90% was recorded for 0.0% of the night, less than 80% was recorded for 0.0% of the nightand less than 70% for 0.0% of the night. 4.5%of the night had invalid SpO2 readings. There were a total of 105 periodic myoclonic events, 0 of which were associated with arousals, which calculated to 0 events per hour during sleep. 52 spontaneous arousals were noted with an index of 6.6 arousals per hour of sleep. IMPRESSION 1. Normal study. There is no sleep disordered breathing. 2. An MSLT will follow. RECOMMENDATIONS The patient will follow up with Dr. Jimenez in Sleep clinic to discuss the study results. personally reviewed the study and the resident's/fellow's interpretation and agree with the findings. Signed by Sabine Jimenez MD 12/21/2008 13:16 Reviewed by Giovanna Miguel MD 12/21/2008 09:31 Giovanna Miguel MD Sabine Jimenez MD ABS Diplomate D: - Giovanna Miguel MD A - SANDRA Job ID: Document ID: [id number] cc: MD Jean Whitten MD * Study - Giovanna Miguel - 10/16/2009 1433 EST [facility] SERVICE DATE: 12/17/2008 Multiple Sleep Latency Test (MSLT) Patient identification Last name : Maximiliano First name : Liset date : 1960 Sex : F Acquisition date : 12/17/2008 Summary Acq 1 Acq 2 Acq 3 Acq 4 Light OUT 9:56:10 AM 12:12:23 PM PM 3:50:23 PM Sleep onset (SO) 9:59:10 AM 12:12:53 PM PM 3:51:53 PM Light ON 10:15:40 AM 12:26:53 PM 2:23:18 PM 4:06:53 PM Time in Bed 20'00'' 15'00'' 20'00'' 17'00'' Tot Sleep Time 16'00'' 1300'' 1530'' 1500'' Sleep latency 03'00'' 00'30'' 0230'' 0200'' REM latency / 00'' 0230'' 0830'' Average sleep latency ( 4 values) : 01'52'' Average REM latency ( 3 values) : 04'19'' ASSESSMENT AND PLAN: 1. Abnormal MSLT. Shortened sleep onset latency with 3 REM sleep onset periods. 2. The patient will follow up with Dr. Jimenez in Sleep clinic to discuss the study results. personally reviewed the study and the resident's/fellow's interpretation and agree with the findings. Signed by Sabine Jimenez MD 12/21/2008 13:16 Reviewed by Giovanna Miguel MD 12/21/2008 09:32 Giovanna Miguel MD Sabine Jimenez MD [facility] Diplomate D: Giovanna Miguel MD A - SANDRA Job ID: Document ID: [id number] cc: MD Jean Whitten MD documented in this encounter Plan of Treatment Upcoming Encounters Date Type Department Care Team (Late st Contact Info) Description 06/29/2024 14:15 EDT Office Visit [address] [address] Jean Munoz MD [address] [place] [phone] documented as of this encounter Visit Diagnoses Not on filedocumented in this encounter Care Teams Edging Machine Feeder Relationship Specialty Start Date End Date Jean Munoz MD [address] [place] [phone] PCP - General 12/31/08 documented as of this encounter
--- OUTSIDE RECORDS SUMMARY | 2024-06-10 07:37 | XMS_ITS | Encounter Summary ---
Author Organization [facility] Address [address] [place] [address] Care Team Providers Care Job Training Specialist Name Role Phone Unavailable Primary Care Provider Unavailabl e Encounter Details Date Type Department Care Team (Latest Contact Info) Description 09/11/2008 10:58 EST - 09/11/2008 11:59 EST Hospital Encounter [facility] [address] [place] [address] Cory Dewitt MD [address] [place] [phone] Discharge Disposition: Auto Discharge Social History Tobacco [...] Office Visit [facility] Family [facility] [address] [place] [address] Jean Munoz MD [address] [place] [phone] documented as of this encounter Visit Diagnoses Not on filedocumented in this encounter
--- OUTSIDE RECORDS SUMMARY | 2024-06-10 07:37 | XMS_ITS | Encounter Summary ---
Author Organization [facility] Address [address] [place] [address] Care Team Providers Care Business Services Specialist Sales Name Role Phone Unavailable Primary Care Provider Unavailabl e Encounter Details Date Type Department Care Team (Latest Contact Info) Description 12/27/2008 10:36 EDT - 12/27/2008 11:59 EDT Hospital Encounter [facility] [address] [place] [address] Morteza, Татьяна Yee NP [address] [place] [address] [place] [phone] Dave Faustin MD [address] [place] [phone] Discharge Disposition: Auto Discharge Social History Tobacco [...] Office Visit [facility] Medicine [facility] [address] [place] [address] Jean Munoz MD [address] [place] [phone] documented as of this encounter Visit Diagnoses Not on filedocumented in this encounter
--- OUTSIDE RECORDS SUMMARY | 2024-06-10 07:37 | XMS_ITS | Encounter Summary ---
Author Organization [facility] Address [address] [place] [address] Care Team Providers Care Exhibit Preparator Name Role Phone Jean Munoz MD Primary Care Provider Encounter Details Date Type Department Care Team (Late st Contact Info) Description 04/17/2009 Orders Only [facility] Sports Medicine [place] [address] [place] [address] Shane Mabry Social History Tobacco Use Types Packs/Day Years [...] EDT Office Visit [facility] Family Medicine [facility] [address] [place] [address] Jean Munoz MD [address] [place] [phone] documented as of this encounter Procedures Procedure Name Priority Date/Time Associated Diagnosis Comments MR EXTREMITY KNEE WO CONTRAST 04/17/2009 8:40 EDT documented in this encounter Results * MR EXTREMITY KNEE WO CONTRAST (04/17/2009 8:40 EDT) Anatomical Region Laterality Modality Other 04/17/2009 8:40 EDT 04/17/2009 16:35 EDT Narrative 04/17/2009 16:35 EDT MR EXTREMITY KNEE WO CONTRAST ??Apr 17, 2009 8:40:00 AM Signs and Symptoms/Comments: ??Right knee pain Comparisons: Knee radiographs April 04, 2009. Technique: Sagittal proton density and T2 fat-sat, coronal proton density and proton density SPAIR, and axial proton density fat-sat images were obtained of the right knee. Findings: A small suprapatellar effusion is present. Coronal and sagittal sequences show a radial tear involving the posterior horn of the medial meniscus. The anterior horn is normal. A small horizontal tear is also seen in the body of the medial meniscus. The lateral meniscus is grossly normal. The ACL, PCL, MCL, LCL are intact and normal appearing. The quadriceps and patellar tendons are intact as well. No muscular abnormalities are noted. Bone marrow signal is normal throughout and no bony cortical irregularities are identified. A mild amount of fraying and fissuring is seen involving the patellar cartilage at the medial facet. Otherwise, cartilage of the left knee is well-preserved and normal in thickness. Impression: 1. Radial tear of the posterior horn and a small horizontal tear of the body of the medial meniscus. 2. Mild medial facet patellar fraying and fissuring. 3. Small suprapatellar joint effusion. I have personally reviewed the images and the above interpretation and agree with the findings. Procedure Note Genesis Wong MD / Genesis Wong MD / Genesis Wong MD - 04/17/2009 MR EXTREMITY KNEE WO CONTRAST Apr 17, 2009 8:40:00 AM Signs and Symptoms/Comments: Right knee pain Comparisons: Knee radiographs April 04, 2009. Technique: Sagittal proton density and T2 fat-sat, coronal proton density and proton density SPAIR, and axial proton density fat-sat images were obtained of the right knee. Findings: A small suprapatellar effusion is present. Coronal and sagittal sequences show a radial tear involving the posterior horn of the medial meniscus. The anterior horn is normal. A small horizontal tear is also seen in the body of the medial meniscus. The lateral meniscus is grossly normal. The ACL, PCL, MCL, LCL are intact and normal appearing. The quadriceps and patellar tendons are intact as well. No muscular abnormalities are noted. Bone marrow signal is normal throughout and no bony cortical irregularities are identified. A mild amount of fraying and fissuring is seen involving the patellar cartilage at the medial facet. Otherwise, cartilage of the left knee is well-preserved and normal in thickness. Impression: 1. Radial tear of the posterior horn and a small horizontal tear of the body of the medial meniscus. 2. Mild medial facet patellar fraying and fissuring. 3. Small suprapatellar joint effusion. I have personally reviewed the images and the above interpretation and agree with the findings. Shane Mabry Pablo MRI ORDERABLES documented in this encounter Visit Diagnoses Not on filedocumented in this encounter Care Teams Exhibit Preparator Relationship Specialty Start Date End Date Jean Munoz MD [address] [place] [phone] PCP - General 12/31/08 documented as of this encounter
--- OUTSIDE RECORDS SUMMARY | 2024-06-10 07:37 | XMS_ITS | Encounter Summary ---
Author Organization [facility] Address [address] [place] [address] Care Team Providers Care Administration Vice President Name Role Phone Jean Munoz MD Primary Care Provider Encounter Details Date Type Department Care Team (Latest Contact Info) Description 04/04/2009 10:51 EDT - 04/04/2009 23:59 EDT Hospital Encounter [facility] [address] [place] [phone] Jean Munoz MD [address] [place] [phone] Discharge Disposition: Auto Discharge Social [...] mg by mouth 3 times daily. 11/21/2009 ropinirole (REQUIP) 4 mg tablet Take 4 mg by mouth at bedtime. 11/21/2009 sumatriptan [...] Visit [facility] Medicine [facility] [address] [place] [address] Jean Munoz MD [address] [place] [phone] documented as of this encounter Procedures Procedure Name Priority Date/Time Associated Diagnosis Comments HIP UNILATERAL 2 OR MORE VIEWS 04/04/2009 11:13 EDT HIP UNILATERAL 2 OR MORE VIEWS 04/04/2009 11:12 EDT documented in this encounter Results * HIP UNILATERAL 2 OR MORE VIEWS (04/04/2009 11:13 EDT) Anatomical Region Laterality Modality Other 04/04/2009 11:1 3 EDT 04/04/2009 11:22 EDT Narrative 04/04/2009 11:22 EDT Bilateral hips and right knee 04/04/2009 History: Bilateral hip pain for one year, knee injury 3 weeks ago, persistent pain HIPS: 2 views of each hip were obtained. The soft tissues and bony structures are normal. The hip joint spaces are maintained. Impression: Normal exam Right knee: 4 views were obtained. There is a moderate sized suprapatellar joint effusion. There is spurring involving the anterior patella at the quadriceps insertion site. The bony structures otherwise appear normal and the joint spaces are preserved. Impression: Joint effusion with no other significant abnormality seen. If further evaluation is warranted, MRI would be helpful. Procedure Note 04/04/2009 Bilateral hips and right knee 04/04/2009 History: Bilateral hip pain for one year, knee injury 3 weeks ago, persistent pain HIPS: 2 views of each hip were obtained. The soft tissues and bony structures are normal. The hip joint spaces are maintained. Impression: Normal exam Right knee: 4 views were obtained. There is a moderate sized suprapatellar joint effusion. There is spurring involving the anterior patella at the quadriceps insertion site. The bony structures otherwise appear normal and the joint spaces are preserved. Impression: Joint effusion with no other significant abnormality seen. If further evaluation is warranted, MRI would be helpful. Jean Munoz MD IMG DIAGNOSTIC IMAGING ORDERABLES * HIP UNILATERAL 2 OR MORE VIEWS (04/04/2009 11:12 EDT) Anatomical Region Laterality Modality Other 04/04/2009 11:1 2 EDT 04/04/2009 11:22 EDT Narrative 04/04/2009 11:22 EDT Bilateral hips and right knee 04/04/2009 History: Bilateral hip pain for one year, knee injury 3 weeks ago, persistent pain HIPS: 2 views of each hip were obtained. The soft tissues and bony structures are normal. The hip joint spaces are maintained. Impression: Normal exam Right knee: 4 views were obtained. There is a moderate sized suprapatellar joint effusion. There is spurring involving the anterior patella at the quadriceps insertion site. The bony structures otherwise appear normal and the joint spaces are preserved. Impression: Joint effusion with no other significant abnormality seen. If further evaluation is warranted, MRI would be helpful. Procedure Note 04/04/2009 Bilateral hips and right knee 04/04/2009 History: Bilateral hip pain for one year, knee injury 3 weeks ago, persistent pain HIPS: 2 views of each hip were obtained. The soft tissues and bony structures are normal. The hip joint spaces are maintained. Impression: Normal exam Right knee: 4 views were obtained. There is a moderate sized suprapatellar joint effusion. There is spurring involving the anterior patella at the quadriceps insertion site. The bony structures otherwise appear normal and the joint spaces are preserved. Impression: Joint effusion with no other significant abnormality seen. If further evaluation is warranted, MRI would be helpful. Jean Munoz MD IMG DIAGNOSTIC IMAGING ORDERABLES documented in this encounter Visit Diagnoses Not on filedocumented in this encounter Care Teams Administration Vice President Relationship Specialty Start Date End Date Jean Munoz MD [address] [place] [phone] PCP - General 12/31/08 documented as of this encounter
--- OUTSIDE RECORDS SUMMARY | 2024-06-10 07:37 | XMS_ITS | Encounter Summary ---
Author Organization [facility] Address [address] [place] [address] Care Team Providers Care Intervention Manager Name Role Phone Unavailable Primary Care Provider Unavailabl e Encounter Details Date Type Department Care Team (Latest Contact Info) Description 08/15/2008 15:02 EST Hospital Encounter [facility] [address] [place] [address] Jean Munoz MD [address] [place] [phone] Discharge Disposition: Auto Discharge Social History [...] [facility] [address] [place] [address] Jean Mnuoz MD [address] [place] [phone] documented as of this encounter Procedures Procedure Name Priority Date/Time Associated Diagnosis Comments CT ABDOMEN, PELVIS W CONTRAST 08/15/2008 17:32 EST documented in this encounter Results * CT ABDOMEN, PELVIS W CONTRAST (08/15/2008 17:32 EST) Anatomical Region Laterality Modality Other 08/15/2008 17:3 2 EST Narrative 01/28/2009 10:47 EDT lower ab pain, constipation CT ABDOMEN, PELVIS ??Aug 15, 2008 5:32:00 PM History: ??lower ab pain, constipation Technique: Helical images were obtained from the domes of the diaphragm to the iliac crests. Technique Pelvis: Immediately after the above preparation, axial images were obtained from the iliac crests to the ischial tuberosities. During the exam, intravenous administration of 100 cc of 370 mg% nonionic contrast at a rate of 2 cc/second was administered. Prior to scanning, oral and rectal contrast was administered. Comparison: July 23, 2008 abdominal ultrasound. Findings: Visualized lung bases appear normal. Suture material at the GE junction is consistent with prior Aspen procedure. The liver is mildly enlarged and heterogeneous with increased hypoattenuation, consistent with fatty liver. No portacaval adenopathy is noted. The gallbladder, pancreas, bilateral adrenal glands and bilateral kidneys appear normal. There is a small 5 mm hypodensity in the medial aspect of the inferior spleen. The remainder of the spleen appears normal. A left retroaortic renal vein is noted. A large amount of stool is seen within both right and left colon. No obstruction or bowel thickening is seen. The appendix is normal. The patient is status post hysterectomy. Within the left adnexa, around images to 220-230 is an approximately 4 x 2.5 cm cystic mass with enhancing septae. The right ovary appears normal. There is mild amount of pelvic free fluid. No significant retroperitoneal adenopathy is seen. Major vascular structures appear unremarkable. Evaluation of the bones demonstrates no significant osseous abnormality. Impression: 1. Left adnexal cystic mass, as described above; further evaluation with ultrasound is recommended. 2. Mildly enlarged heterogeneous fatty liver; please correlate with liver function tests. 3. Large amount of stool in the colon without evidence of obstruction. 4. Status post Aspen. 5. Incidental benign left retroaortic renal vein. 6. 5 mm splenic hypodensity; cyst versus small hemangioma versus previous injury. 7. Status post hysterectomy. Dr. Oreilly discussed with Dr. Munoz. I have personally reviewed the images and the above interpretation and agree with the findings. Procedure Note Tanvir Oreilly DDS / Gage Reddy MD - 01/28/2009 lower ab pain, constipation CT ABDOMEN, PELVIS Aug 15, 2008 5:32:00 PM History: lower ab pain, constipation Technique: Helical images were obtained from the domes of the diaphragm to the iliac crests. Technique Pelvis: Immediately after the above preparation, axial images were obtained from the iliac crests to the ischial tuberosities. During the exam, intravenous administration of 100 cc of 370 mg% nonionic contrast at a rate of 2 cc/second was administered. Prior to scanning, oral and rectal contrast was administered. Comparison: July 23, 2008 abdominal ultrasound. Findings: Visualized lung bases appear normal. Suture material at the GE junction is consistent with prior Aspen procedure. The liver is mildly enlarged and heterogeneous with increased hypoattenuation, consistent with fatty liver. No portacaval adenopathy is noted. The gallbladder, pancreas, bilateral adrenal glands and bilateral kidneys appear normal. There is a small 5 mm hypodensity in the medial aspect of the inferior spleen. The remainder of the spleen appears normal. A left retroaortic renal vein is noted. A large amount of stool is seen within both right and left colon. No obstruction or bowel thickening is seen. The appendix is normal. The patient is status post hysterectomy. Within the left adnexa, around images to 220-230 is an approximately 4 x 2.5 cm cystic mass with enhancing septae. The right ovary appears normal. There is mild amount of pelvic free fluid. No significant retroperitoneal adenopathy is seen. Major vascular structures appear unremarkable. Evaluation of the bones demonstrates no significant osseous abnormality. Impression: 1. Left adnexal cystic mass, as described above; further evaluation with ultrasound is recommended. 2. Mildly enlarged heterogeneous fatty liver; please correlate with liver function tests. 3. Large amount of stool in the colon without evidence of obstruction. 4. Status post Aspen. 5. Incidental benign left retroaortic renal vein. 6. 5 mm splenic hypodensity; cyst versus small hemangioma versus previous injury. 7. Status post hysterectomy. Dr. Oreilly discussed with Dr. Munoz. I have personally reviewed the images and the above interpretation and agree with the findings. Jean Munoz MD IMG CT ORDERABL ES documented in this encounter Visit Diagnoses Not on filedocumented in this encounter
--- OUTSIDE RECORDS SUMMARY | 2024-06-10 07:37 | XMS_ITS | Encounter Summary ---
Author Organization [facility] Address [address] [place] [address] Care Team Providers Care Cable Dispatcher Name Role Phone Unavailable Primary Care Provider Unavailabl e Encounter Details Date Type Department Care Team (Latest Contact Info) Description 10/03/2008 14:27 EST Hospital Encounter [facility] [address] [place] [address] Attarian, Sabine Humphrey MD [address] [phone] Discharge Disposition: Auto Discharge Social History Tobacco [...] Office Visit [facility] [address] [place] [address] Jean Munoz MD [address] [place] [phone] documented as of this encounter Visit Diagnoses Not on filedocumented in this encounter
--- OUTSIDE RECORDS SUMMARY | 2024-06-10 07:37 | XMS_ITS | Encounter Summary ---
Author Organization [facility] Address [address] [place] [address] Care Team Providers Care Safety Aide Name Role Phone Jean Munoz MD Primary Care Provider Encounter Details Date Type Department Care Team (Late Contact Info) Description 07/08/2009 Orders Only [facility] [place] [address] [place] [address] Cory Dewitt MD [address] [place] [phone] Social History Tobacco Use Types Packs/Day Years [...] Upcoming Encounters Date Type Department Care Team ([facility] Contact Info) Description 06/29/2024 14:15 EDT Office Visit [facility] [place] [address] [place] [address] Jean Munoz MD [address] [place] [phone] documented as of this encounter Visit Diagnoses Not on filedocumented in this encounter Care Teams Safety Aide Relationship Specialty Start Date End Date Jean Munoz MD [address] [place] [phone] PCP - General 12/31/08 documented as of this encounter
--- OUTSIDE RECORDS SUMMARY | 2024-06-10 07:37 | XMS_ITS | Encounter Summary ---
Author Organization [facility] Address [address] [place] [address] Care Team Providers Care Trailer Rental Clerk Name Role Phone Jean Munoz MD Primary Care Provider Encounter Details Date Type Department Care Team (Late st Contact Info) Description 10/03/2008 Before PRISM Converted Visit (Maple) [facility] - Maple conversion [address] [place] [address] Wendi Rojas MD [address] [place] [id number] Social History Tobacco Use Types Packs/Day Years Used Date Smoking Tobacco: Never Assessed Sex and Gender Information Value Date Recorded Sex Assigned at Not on file Gender Identity Female 08/11/2019 16:07 EST Sexual Orientation Not on file documented as of this encounter Consult Notes * Wendi Rojas MD - 04/06/2009 0216 EDT CONSULTATION - 10/03/2008 [facility] PHYSICIAN Jean Munoz MD COMPLAINT Falling asleep during the day, which is more like passing out and requiring a lot of effort to be awakened. HISTORY OF PRESENT ILLNESS Mrs Viera is a 47-year-old woman who presents to the sleep centers outpatient clinic for consultation referred by Dr Munoz. Mrs Viera states that she has had sleep troubles going back at least 20 years, which used to be insomnia for which she has taken temazepam to help her sleep. More recently, within the last six months, her sleep difficulties have been extreme fatigue and an inability to stay awake. She reports that about a year ago she was sleeping fine and taking the temazepam when she needed it to get to sleep at night but over the past six months has had several episodes of passing out and an inability to be awakened easily. She reports being in the car with a friend and her and falling asleep, which is unlike her.She also reports falling asleep and her being scared due to the fact that he had a very difficult time, over severalhours, trying to wake her up. She states that she is normally a very light sleeper and would wake with any kind of noise but this is different than the usual. She usually goes to bed around midnight and gets up at 8 a.m. She does not have difficulty falling asleep now and does not wake up throughout the night as she used to. She describes her sleep as moresound than usual. She takes unintentional naps four out of seven days per week which she reports last from 3-4 hours. She does not feel refreshed when she wakes up, is sometimes confused and does notknow where she is. She also describes some cataplexy which has been of more recent onset in conjunction with her sudden sleep. She states that when she feels upset, her whole body feels weak, like she is going to fall down, and then she will have to sit down and then pass out and sleep for awhile. She does not always have to pass out afterwards but does report weakness with emotion. She denies any sleep paralysis or hypnagogic hallucinations. For most of her adult life she has been a light sleeper. She has had some snoring, which her reports to her. He also reports some gasping at night. However, she did have a Aspen fundoplication in 2006 and says that her gasping has gotten bettersince then. In the past for sleep, she has taken temazepam and diazepam. She has been weaning off the temazepam quite a bit and only uses that once a week now due to her excessive somnolence. Her [place] sleepiness scale score is 22. She does report somniloquy and somnambulism and states about five years ago she did have an episodewhere she was going to get into a car and drive and had to be stopped. Upon awakening she does haveheadaches, dry mouth and shortness of breath. She denies any history of head trauma, denies any enuresis or any loss of bowel while asleep. She has never awakened on the floor or had shakes or anything resembling a seizure. She denies any history of severe infections. PAST MEDICAL HISTORY 1. Asthma. 2. Environmental allergies. 3. Depression. 4. Reflux (treated with Aspen fundoplication). PAST SURGICAL HISTORY 1. Tubal 1980. 2. Hysterectomy 1997. 3. Left shoulder surgery 2000. 4. Aspen fundoplication 2006. ALLERGIES No known drug allergies. CURRENT MEDICATIONS 1. Celexa 40 mg p.o. at bedtime. 2. Advair 250 micrograms, 2 puffs b.i.d. 3. Albuterol inhaler p.r.n. shortness of breath. 4. Atenolol 50 mg p.o. at bedtime. 5. Tizanidine 4 mg p.o. at bedtime. 6. Requip 1 mg p.o. at bedtime. 7. Temazepam 30 mg p.o. at bedtime (she takes this about once a week). 8. Lyrica 50 mg p.o. t.i.d. 9. Vicodin 5 mg p.o. q.i.d. 10. Chantix 1 mg p.o. b.i.d. 11. Imitrex 50 mg p.o. p.r.n. migraine headache. SUBSTANCE USE She has been a smoker all her life, smoking three packs a day but is currently on Chantix and has cut down to smoking six cigarettes per day. She rarely drinks alcohol and drinks two caffeinated sodas per day. SOCIAL HISTORY She is , lives with her , has a high school diploma and is currently not working and on medical leave due to neck problems. FAMILY HISTORY Her daughter and a brother have obstructive sleep apnea, which has been treated with removal of adenoids. However, with her daughter, she states that they continue to grow back. Her father has heart disease as well as a maternal grandmother. REVIEW OF SYSTEMS A 13-point review of systems is done and available in the patient's chart. GENERAL PHYSICAL EXAM Height 64 inches, weight 171.8 pounds. Her blood pressure is 120/75, pulse is 60. Oropharynx: Mallampati II, tonsils 1+. Neck size is 14 inches. Oropharynx is narrow and patent. Cardiovascular: S1 and S2 are normal, no murmurs, rub or gallops. Pulmonary: Clear to auscultation bilaterally. Good inspiratory effort. NEUROLOGICAL EXAM Mental status alert and oriented times four, mental status intact to conversation. Cranial nerves pupils equally reactive to light, no APD. Extraocular movements intact, no nystagmus. Visual dalal intact to confrontation. Tongue midline, palate is symmetrically elevated. Bulk and tone normal, strength 5/5. Deep tendon reflexes 2+ all over. Sensory normal to light touch all over. Coordination normal finger to finger - finger to nose rapid alternating movements. Gait steady, normal toe heel and tandem walking. ASSESSMENT Likely narcolepsy but will have to rule out obstructive sleep apnea. Given the fact that she has excessive daytime fatigue, being tired and her history of snoring and gasping, we will do a polysomnogram overnight to assess for apneic and hypopneic events and desaturation. If she does not have obstructive sleep apnea and a low AHI, we will continue the following day with an MSLT to assess for narcolepsy. It is unlikely there is any organic cause for her fatigue as she has denied any seizures, serious infections or head trauma. PLAN 1. Referred her for a polysomnogram followed by an MSLT. 2. She was advised not to drive while tired. 3. She is advised to call with questions. saw and examined the patient with the resident/fellow. I agree with the findings and plan of care documented in the resident's/fellow's note. Signed by Sabine Jimenez MD 10/15/2008 09:06 Reviewed by Wendi Rojas MD 10/14/2008 15:45 Wendi Rojas MD Sabine Jimenez MD ABS[facility] Diplomate - Wendi Rojas MD - SANDRA Job ID: [id number] Doc ID: [id number] cc: Jean Munoz MD documented in this encounter Plan of Treatment Upcoming Encounters Date Type Department Care Team (Late st Contact Info) Description 06/29/2024 14:15 EDT Office Visit [facility] [address] [place] [address] Jean Munoz MD [address] [place] [phone] documented as of this encounter Visit Diagnoses Not on filedocumented in this encounter Care Teams Trailer Rental Clerk Relationship Specialty Start Date End Date Jean Munoz MD [address] [place] [phone] PCP - General 12/31/08 documented as of this encounter
--- OUTSIDE RECORDS SUMMARY | 2024-06-10 07:37 | XMS_ITS | Encounter Summary ---
Author Organization [facility] Address [address] [place] [address] Care Team Providers Care Electrician Substation Name Role Phone Jean Munoz MD Primary Care Provider Encounter Details Date Type Department Care Team (Late Contact Info) Description 04/08/2009 Orders Only [facility] [place] [address] Cory Dewitt MD [address] [place] [phone] Social History Tobacco Use Types Packs/Day Years [...] Upcoming Encounters Date Type Department Care Team ([facility] Contact Info) Description 06/29/2024 14:15 EDT Office Visit [facility] [place] [address] [place] [address] Jean Munoz MD [address] [place] [phone] documented as of this encounter Procedures Procedure Name Priority Date/Time Associated Diagnosis Comments CERVICAL SPINE 2-3 VIEWS 04/08/2009 11:58 EDT documented in this encounter Results * CERVICAL SPINE 2-3 VIEWS (04/08/2009 11:58 EDT) Anatomical Region Laterality Modality Other 04/08/2009 11:5 8 EDT 04/08/2009 14:20 EDT Narrative 04/08/2009 14:20 EDT CERVICAL SPINE 2-3 VIEWS ??Apr 08, 2009 11:58:00 AM Signs and Symptoms/Comments: ??Neck pain Comparison: 02/18/2009 Findings: 2 views of the cervical spine demonstrate postoperative changes from anterior fusion from C4 through C7 with anterior plate and screws. There is no interval change. ??There is no hardware failure. There is no prevertebral soft tissue swelling. Procedure Note 04/08/2009 CERVICAL SPINE 2-3 VIEWS Apr 08, 2009 11:58:00 AM Signs and Symptoms/Comments: Neck pain Comparison: 02/18/2009 Findings: 2 views of the cervical spine demonstrate postoperative changes from anterior fusion from C4 through C7 with anterior plate and screws. There is no interval change. There is no hardware failure. There is no prevertebral soft tissue swelling. Cory Dewitt MD IMG DIAGNOSTIC IMAGI NG ORDERABLES documented in this encounter Visit Diagnoses Not on filedocumented in this encounter Care Teams Electrician Substation Relationship Specialty Start Date End Date Jean Munoz MD [address] [place] [phone] PCP - General 12/31/08 documented as of this encounter
--- OUTSIDE RECORDS SUMMARY | 2024-06-10 07:37 | XMS_ITS | Encounter Summary ---
Author Organization [facility] Address [address] [place] [address] Care Team Providers Care Filing Clerk Name Role Phone Jean Munoz MD Primary Care Provider Encounter Details Date Type Department Care Team (Latest Contact Info) Description 04/17/2009 7:58 EDT - 04/17/2009 23:59 EDT Hospital Encounter [facility] - [address] [place], [place] [phone] Shane Mabry Discharge Disposition: Auto Discharge Social History Tobacco [...] EDT Office Visit [facility] [address] [place], [place] [phone] Jean Munoz MD [address] [place] [phone] documented as of this encounter Visit Diagnoses Not on filedocumented in this encounter Care Teams Filing Clerk Relationship Specialty Start Date End Date Jean Munoz MD [address] [place] [phone] PCP - General 12/31/08 documented as of this encounter
--- OUTSIDE RECORDS SUMMARY | 2024-06-10 07:37 | XMS_ITS | Encounter Summary ---
Author Organization [facility] Address [address] [place] [address] Care Team Providers Care Wire Brush Maker Name Role Phone Unavailable Primary Care Provider Unavailabl e Encounter Details Date Type Department Care Team (Latest Contact Info) Description 11/02/2008 8:43 EST - 11/02/2008 11:59 EST Hospital Encounter [facility] [address] [place] [address] Cory Dewitt MD [address] [place] [phone] Discharge Disposition: Auto Discharge Social History Tobacco [...] EDT Office Visit [facility] [address] [place] [address] Jean Munoz MD [address] [place] [phone] documented as of this encounter Procedures Procedure Name Priority Date/Time Associated Diagnosis Comments NM BONE WHOLE BODY WITH SPECT 11/02/2008 13:17 EST documented in this encounter Results * NM BONE WHOLE BODY WITH SPECT (11/02/2008 13:17 EST) Anatomical Region Laterality Modality Other 11/02/2008 13:1 7 EST Narrative 01/28/2009 10:12 EDT Neck pain NM BONE WHOLE BODY WITH SPECT ??Nov 02, 2008 1:17:00 PM Indication: Neck pain Comparison: None available Technique: Two and one half hours after the IV injection of 22 mCi Tc-99m MDP, standard whole body bone images were obtained. Additional SPECT CT images of the cervical spine were obtained Findings: Evaluation the planar images demonstrate normal soft tissue radiotracer distribution. There is increased activity noted in both sternoclavicular joints likely degenerative or post traumatic. 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 given the low contrast of this attenuation correction scan, cord impingement by disc herniation cannot be evaluated. Impression: Radiotracer uptake at C4-C5 and C5 and C6 as described I have personally reviewed the images and the above interpretation and agree with the findings. Procedure Note Alexis Coelho MD / Jan Landers MD - 01/28/2009 Neck pain NM BONE WHOLE BODY WITH SPECT Nov 02, 2008 1:17:00 PM Indication: Neck pain Comparison: None available Technique: Two and one half hours after the IV injection of 22 mCi Tc-99m MDP, standard whole body bone images were obtained. Additional SPECT CT images of the cervical spine were obtained Findings: Evaluation the planar images demonstrate normal soft tissue radiotracer distribution. There is increased activity noted in both sternoclavicular joints likely degenerative or post traumatic. 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 given the low contrast of this attenuation correction scan, cord impingement by disc herniation cannot be evaluated. Impression: Radiotracer uptake at C4-C5 and C5 and C6 as described I have personally reviewed the images and the above interpretation and agree with the findings. Cory Dewitt MD IMG NM ORDERABLES documented in this encounter Visit Diagnoses Not on filedocumented in this encounter
--- OUTSIDE RECORDS SUMMARY | 2024-06-10 07:37 | XMS_ITS | Encounter Summary ---
Author Organization [facility] Address [address] [place] [address] Care Team Providers Care Stone Grader Name Role Phone Jean Munoz MD Primary Care Provider Encounter Details Date Type Department Care Team (Late st Contact Info) Description 12/27/2008 Before PRISM Converted Visit (Maple) [facility] - [facility] [address] [place] [address] Close, Татьяна Yee, HOSE STRIPPER [address] [place] [address] [place] [phone] Social History Tobacco Use Types Packs/Day Years Used Date Smoking Tobacco: Never Assessed Sex and Gender Information Value Date Recorded Sex Assigned at Not on file Gender Identity Female 08/11/2019 16:07 EST Sexual Orientation Not on file documented as of this encounter Plan of Treatment Upcoming Encounters Date Type Department Care Team (Late st Contact Info) Description 06/29/2024 14:15 EDT Office Visit [facility] - [place] [address] [place], [place] [phone] Jean Munoz MD [address] [place] [phone] documented as of this encounter Procedures Procedure Name Priority Date/Time Associated Diagnosis Comments COMPLETE BLOOD COUNT AND DIFFERENTIAL Routine 12/27/2008 12:12 EDT documented in this encounter Results * HEMAGRAM AND DIFFERENTIAL (12/27/2008 12:12 EDT) WBC 8.41 4.0 - 12.4 K/cmm [facility] RBC 4.16 3.86 - 5.04 M/cmm [facility] Hemoglobin 13.9 11.6 - 15.2 gm/dl [facility] HCT 39.4 34.9 - 44.4 % [facility] MCV 95 81 - 98 fl [facility] MCH 33.3 26.7 - 33.3 pg [facility] MCHC 35.2 32.1 - 35.9 gm/dl [facility] PLT 310 141 - 320 K/cmm [facility] RDW-CV 13.6 11.7 - 14.6 % [facility] Neutrophils 60.4 45.5 - 79.7 % [facility] Lymphocytes 29.6 15.0 - 46.8 % [facility] Monocytes 6.3 1.8 - 12.0 % [facility] Eosinophils 3.1 0.6 - 6.9 % [facility] Basophils 0.6 0.2 - 1.4 % [facility] ABS Neutrophils 5.08 2.20 - 8.85 K/cmm [facility] ABS Lymphs 2.49 1.09 - 3.30 K/cmm [facility] ABS Monocytes 0.53 0.1 - 0.8 K/cmm [facility] ABS Eosinophils 0.26 0.03 - 0.61 K/cmm [facility] ABS Basophils 0.05 0.01 - 0.11 K/cmm [facility] Type of Diff: Automated [facility] 12/27/2008 12:1 2 EDT 12/27/2008 12:15 EDT Татьяна L Close HOSE STRIPPER PACKAGES & DNA PROBE ORDERABLES [facility] [address] [place] [address] documented in this encounter Visit Diagnoses Not on filedocumented in this encounter Care Teams Stone Grader Relationship Specialty Start Date End Date Jean Munoz MD [address] [place] [phone] PCP - General 12/31/08 documented as of this encounter
--- OUTSIDE RECORDS SUMMARY | 2024-06-10 07:37 | XMS_ITS | Encounter Summary ---
Author Organization [facility] Address [address] [place] [address] Care Team Providers Care Driver License Technician Name Role Phone Moi Munoz MD Primary Care Provider Reason for Visit * Reason Comments Knee Injury Has had right knee p ain since the day after dancing at a alliance party over the weekend. Pain is around the kneecap and getting worse. Can bear weight but painful but feels like it wants to buckle. Encounter Details Date Type Department Care Team (Latest Contact Info) Description 04/04/2009 9:14 EDT - 04/04/2009 11:53 EDT Hospital Encounter [facility] - [address] [id number] Jesi Rene PA-C [address] [place] [phone] Knee Injury Discharge Disposition: Home or Self Care Social [...] Sign Reading Time Taken Comments Blood Pressure 105/60 04/04/2009929 EDT Pulse 68 04/04/2009929 EDT Temperature 36.4 ??C (97.6 ??F) 04/04/2009929 EDT Respiratory Rate 12 04/04/2009929 EDT Oxygen Saturation - - Inhaled Oxygen Concentration - - Weight - - Height - - Body Mass Index - - documented in this encounter Discharge Instructions * Discharge Instructions* Jesi Hare PA - 04/04/2009 11:41 EDT As we discussed you should ice your injury for 20 minutes on and 40 minutes off (i like frozen peas). Keep it elevated as often as possible. The best way to do this at night is to place a pillow or basketball/football/soccerball under your mattress at the end of the bed. You should wear your knee immobilizer any time that you are up and about. Do not take vicodin while you are on percocet. You should make an appointment with an orthopedist. If pain becomes severe, you experience numbness, tingling, blue, white or cold fingers or toes or you have any concerning symptoms you should return immediately to the clinic or to the ER. * Attachments The following attachments cannot be sent through Care Everywhere. * Knee Sprain: After Your Visit * Anterior Cruciate Ligament Tear: After Your Visit documented in this encounter Medications at Time [...] bedtime. 11/21/2009 documented as of this encounter Ordered Prescriptions Prescription Sig Dispensed Refills Start Date End Da te oxycodone-acetaminophen (PERCOCET) 5-325 mg per tablet Take 1 Tab by mouth every 6 hours as needed for Pain. 25 0 04/04/2009 11/21/2009 documented in this encounter Discharge Disposition Disposition Code Departure Means Destination Home or Self Care Car Home documented in this encounter ED Notes * Vane Valle RN - 04/04/2009 1130 EDT Name and date of verified prior to medication or procedure * Toshia Jay - 04/04/2009 1126 EDT Charted 2 times knee immobilizer DP, WH * Jesi Hare PA - 04/04/2009 1034 EDT DOS: 04/04/2009 Chief Complaint Patient presents with ??? Knee Injury Has had right knee pain since the day after dancing at a alliance party over the weekend. Pain is around thekneecap and getting worse. Can bear weight but painful but feels like it wants to buckle. Patient is a 48 y.o. female presenting with Knee Injury. The history is provided by the patient. Knee Injury Chronicity: pt c/o knee pain after dancign 3 weeks ago and then acutely worse after dancing again last week. also reports falling through a deck last year- no med attention at taht time (may have been original injury) Episode Frequency: pain constant since onset- worse at end of day. The problem has been gradually worsening. The pain is present in the right knee. The pain quality is described as aching. The pain is moderate. Associated symptoms include limited range of motion and stiffness. Pertinent negatives include no numbness, no tingling and no itching. The symptoms are worsened by activity. Treatments Tried: pt takes vicodin 3 times daily for a recent spinal fusion, this has not helped the pain in her knee. The treatment provided no relief. There has been a history of trauma. Review of Systems Constitutional: Negative for fever, chills, activity change, appetite change and fatigue. HENT: Negative for ear pain, congestion, sore throat, rhinorrhea and neck pain. Respiratory: Negative for cough and shortness of breath. Cardiovascular: Negative for chest pain and palpitations. Musculoskeletal: Positive for joint swelling, arthralgias (knee) and gait problem. Negative for myalgias. Neck pain from fusion, unchanged from baseline. Skin: Negative for rash, itching and color change. Neurological: Negative for dizziness, tingling, syncope, weakness, numbness and headaches. Psychiatric/Behavioral: Negative for behavioral problem. The patient is not nervous/anxious. Current hospital medications Medication Dose Route Frequency Provider Last Rate Last Dose ??? oxycodone-acetaminophen (PERCOCET) 5-325 mg per tablet 1 Tab 1 Tab Oral Now HIRAM Caraballo Current outpatient prescriptions Medication Sig Dispense Refill ??? hydrocodone-acetaminophen (LORTAB) 5-500 mg Tab Take 1 Tab by mouth. 4 times a day for hip arthritic pain ??? pregabalin (LYRICA) 100 mg capsule Take 100 mg by mouth 3 times daily. ??? atenolol (TENORMIN) 50 mg tablet Take 50 mg by mouth at bedtime. ??? sumatriptan (IMITREX) 50 mg tablet Take 50 mg by mouth once as needed for Migraine. Gets 9 tabsa month and uses them all ??? tizanidine (ZANAFLEX) 4 mg tablet Take 4 mg by mouth at bedtime. ??? ropinirole (REQUIP) 4 mg tablet Take 4 mg by mouth at bedtime. ??? methylphenidate (RITALIN) 20 mg tablet Take 20 mg by mouth 2 times daily. ??? citalopram (CELEXA) 40 mg tablet Take 40 mg by mouth daily. Allergies Allergen Reactions ??? Toradol (Ketorolac Tromethamine) Past Medical History Diagnosis Date ??? Chest Pain costochondritis, Asif ??? Retrocalcaneal Bursitis (Back of Heel) Greer ??? Narcolepsy ??? Restless Leg ??? Hip Arthritis ??? Hypertension ??? Depression History Substance Use Topics ??? Tobacco Use: Yes quit 10/21, Rx verinicline x3 months, smoking again after ??? Alcohol Use: Yes rarely Family History Problem Relation ??? Cancer Father esophageal ??? Cancer Paternal Aunt breast ??? Heart Attack Father ??? Migraines Maternal Aunt ??? Stroke Maternal Grandmother ??? Heart Attack Maternal Grandmother BP 105/60 Pulse 68 Temp(Src) 97.6 ??F (36.4 ??C) (Oral) Resp 12 Physical Exam Nursing note and vitals reviewed. Constitutional: She is oriented. She appears well-developed and well-nourished. No distress. HENT: Head: Normocephalic and atraumatic. Neck: Well healed surgical incision on left anterior neck Cardiovascular: Normal rate, regular rhythm and normal heart sounds. Pulmonary/Chest: Effort normal and breath sounds normal. No respiratory distress. Musculoskeletal: Right shoulder: She exhibits decreased range of motion, tenderness (diffuse), swelling and effusion. She exhibits no bony tenderness, no crepitus, no deformity, no laceration, normal pulse and normalstrength. anterior drawer test- unable to assess - pt guarding (+) veronica's test (+) laxity and pain with valgus stress (MCL laxity) (-) posterior drawer test (-) appley's Extremities otherwise normal. Neurological: She is alert and oriented. Skin: Skin is warm and dry. No rash noted. Psychiatric: She has a normal mood and affect. Her behavior is normal. Consult orders: None PCP: MOI MUNOZ MD No results found for this visit on 04/04/2009. Radiology orders: KNEES 3 VIEWS KNEES 3 VIEWS (Results Pending) Procedures Course: X-ray: Impression: Joint effusion with no other significant abnormality seen. If further evaluation is warranted, MRI would be helpful. Impression: knee injury, suspicious for ligamentous injury Plan: immobilizer, crutches (non weight bearing), elevation, ice, pain control with percocet, pt verbalizes understanding of importance to not take vicodin with percocet. F/U with ortho LE. Dr. Izabella Estrella was available for consultation during my care of this patient. [facility] 04/04/2009 10:34 AM * Toshia Jay - 04/04/2009 0931 EDT The patient is advised to apply ice or cold packs intermittently as needed to relieve pain. Elevated with pillow under knee. documented in this encounter Miscellaneous Notes * Scanned Note-Null - Inpatient, Physician - 04/15/2009 1139 EDT * Scanned Note-Null - Inpatient, Physician - 04/14/2009 1039 EDT * Scanned Note-Null - Inpatient, Physician - 04/14/2009 1039 EDT * Scanned Note-Null - Inpatient, Physician - 04/14/2009 1026 EDT documented in this encounter Plan of Treatment Upcoming Encounters Date Type Department Care Team (Late st Contact Info) Description 06/29/2024 14:15 EDT Office Visit [facility] [address] [place] [address] Moi Munoz MD [address] [place] [phone] documented as of this encounter Procedures Procedure Name Priority Date/Time Associated Diagnosis Comments KNEE 4 OR MORE VIEWS STAT 04/04/2009 11:12 EDT documented in this encounter Results * KNEE 4 OR MORE VIEWS (04/04/2009 11:12 EDT) Anatomical [...] evaluation is warranted, MRI would be helpful. Jesi Rene PA-C [facility] ORDERABLES documented in this encounter Visit Diagnoses Diagnosis Knee injury Injury, other and unspecified, knee, leg, ankle, [...] MAR Action Action Date Dose Rate Site oxycodone-acetaminophen (PERCOCET) 5-325 mg per tablet 1 Tab 1 Tablet, oral, NOW X1, 1 dose, On Cayla 04/04/09 at 1100, Routine Given 04/04/2009 11:16 EDT 1 Tablet documented in this encounter Historical Medications * This list may reflect changes made after this encounter. Medication Sig Dispensed Refills Start Date End Date citalopram (CELEXA) 40 mg tablet Take 40 mg by mouth daily. 12/12/2009 methylphenidate (RITALIN) 20 mg tablet Take 20 mg by mouth 2 times daily. 11/21/2009 ropinirole (REQUIP) 4 mg tablet Take 4 mg by mouth at bedtime. 11/21/2009 tizanidine (ZANAFLEX) 4 mg tablet Take 4 mg by mouth at bedtime. 11/21/2009 sumatriptan (IMITREX) 50 mg tablet Take 50 mg by mouth once as needed for Migraine. Gets 9 tabs a month and uses them all 08/11/2010 atenolol (TENORMIN) 50 mg tablet Take 50 mg by mouth at bedtime. 11/21/2009 pregabalin (LYRICA) 100 mg capsule Take 100 mg by mouth 3 times daily. 11/21/2009 hydrocodone-acetaminoph en (LORTAB) 5-500 mg Tab Take 1 Tab by mouth. 4 times a day for hip arthritic pain 11/21/2009 added in this encounter Active and Recently Administered Medications Times are shown in EDT. Scheduled Medication Order 04/02/2009 04/03/2009 04/04/2009 oxycodone-acetaminophen (PERCOCET) 5-325 mg per tablet 1 Tab (COMPLETED) 1 Tablet, oral, NOW X1, 1 dose, On Cayla 04/04/09 at 1100, Routine 1116 (Given - Provid er: Vane Valle RN) documented in this encounter Care Teams Driver License Technician Relationship Specialty Start Date End Date Moi Munoz MD [address] [place] [phone] PCP - General 12/31/08 documented as of this encounter
--- OUTSIDE RECORDS SUMMARY | 2024-06-10 07:37 | XMS_ITS | Encounter Summary ---
Author Organization [facility] Address [address] [place] [address] Care Team Providers Care Posting Clerk Name Role Phone Jean Munoz MD Primary Care Provider Encounter Details Date Type Department Care Team (Late Contact Info) Description 02/18/2009 Orders Only [facility] Spine Program - [address] [place], [place] [phone] Cory Dewitt MD [address] [place] [phone] Social History Tobacco Use Types Packs/Day Years Used Date Smoking Tobacco: Never Assessed Sex and Gender Information Value Date Recorded Sex Assigned at Not on file Gender Identity Female 08/11/2019 16:07 EST Sexual Orientation Not on file documented as of this encounter Plan of Treatment Upcoming Encounters Date Type Department Care Team (Late Contact Info) Description 06/29/2024 14:15 EDT Office Visit [facility] Family Medicine - [place] [address] [place] [address] Jean Munoz MD [address] [place] [phone] documented as of this encounter Procedures Procedure Name Priority Date/Time Associated Diagnosis Comments CERVICAL SPINE 2-3 VIEWS 02/18/2009 13:19 EDT documented in this encounter Results * CERVICAL SPINE 2-3 VIEWS (02/18/2009 13:19 EDT) Anatomical Region Laterality Modality Other 02/18/2009 13:1 9 EDT 02/18/2009 14:09 EDT Narrative 02/18/2009 14:09 EDT CERVICAL SPINE 2-3 VIEWS ??Feb 18, 2009 1:19:00 PM Signs and Symptoms: ??Neck pain Findings: 2 views of the cervical spine demonstrate this patient to be status post C4-C7 fusion with anterior plate and screws. Compared with previous examination there has been no interval change. Impression: No evidence for hardware failure. Procedure Note 02/18/2009 CERVICAL SPINE 2-3 VIEWS Feb 18, 2009 1:19:00 PM Signs and Symptoms: Neck pain Findings: 2 views of the cervical spine demonstrate this patient to be status post C4-C7 fusion with anterior plate and screws. Compared with previous examination there has been no interval change. Impression: No evidence for hardware failure. Cory Dewitt MD IMG DIAGNOSTIC IMAGI NG ORDERABLES documented in this encounter Visit Diagnoses Not on filedocumented in this encounter Care Teams Posting Clerk Relationship Specialty Start Date End Date Jean Munoz MD [address] [place] [phone] PCP - General 12/31/08 documented as of this encounter
--- OUTSIDE RECORDS SUMMARY | 2024-06-10 07:37 | XMS_ITS | Encounter Summary ---
Author Organization [facility] Address [address] [place] [address] Care Team Providers Care Senior Sales Compensation Analyst Name Role Phone Jaen Munoz MD Primary Care Provider Encounter Details Date Type Department Care Team (Latest Contact Info) Description 01/07/2009 9:40 EDT - 01/07/2009 9:45 EDT Hospital Encounter [facility] Neurophysiology - [facility] [address] [place], [place] [phone] AttarianSabine MD [address] [facility] [address] [place] [phone] Discharge Disposition: Home or Self Care Social History Tobacco Use Types Packs/Day Years Used Date Smoking Tobacco: Never Assessed Sex and Gender Information Value Date Recorded Sex Assigned at Not on file Gender Identity Female 08/11/2019 16:07 EST Sexual Orientation Not on file documented as of this encounter Discharge Disposition Disposition Code Departure Means Destination Home or Self Half-Way documented in this encounter Plan of Treatment Upcoming Encounters Date Type Department Care Team (Late st Contact Info) Description 06/29/2024 14:15 EDT Office Visit [facility] Family [facility] [address] [place] [address] Jean Munoz MD [address] [place] [phone] documented as of this encounter Visit Diagnoses Not on filedocumented in this encounter Care Teams Senior Sales Compensation Analyst Relationship Specialty Start Date End Date Jean Munoz MD [address] [place] [phone] PCP - General 12/31/08 documented as of this encounter
--- OUTSIDE RECORDS SUMMARY | 2024-06-10 07:38 | XMS_ITS | Encounter Summary ---
Author Organization [facility] Address [address] [place] [address] Care Team Providers Care Customer Operations Specialist Name Role Phone Unavailable Primary Care Provider Unavailabl e Encounter Details Date Type Department Care Team (Late st Contact Info) Description 01/13/2006 13:20 EDT Hospital Encounter [facility] [address] [place] [address] Jean Jefferson PA-C [address] [place] [phone] Discharge Disposition: Auto Discharge Social History [...] 06/29/2024 14:15 EDT Office Visit [facility] Family Medicine [facility] [address] [place] [address] Jean Munoz MD [address] [place] [phone] documented as of this encounter Procedures Procedure Name Priority Date/Time Associated Diagnosis Comments PELVIS 1 OR 2 VIEWS 01/13/2006 1 4:47 EDT L SPINE 2-3 VIEWS 01/13/2006 14: 46 EDT documented in this encounter Results * PELVIS 1 OR 2 VIEWS (01/13/2006 14:47 EDT) Anatomical Region Laterality Modality Other 01/13/2006 14:4 7 EDT Narrative 03/30/2009 10:46 EDT BACK PAIN. BILATERAL HIP PAIN. ASSESS INSTABILITY. PELVIS; LUMBAR SPINE: ??01/13/06 CLINICAL HISTORY: ?? Back pain and bilateral hip pain; assess instability. PELVIS FINDINGS: A single view of the pelvis shows minimal pelvic enthesopathy. ??No focal bony lesion is identified. ??The SI joints appear symmetric and are unremarkable. ??Both hips are unremarkable with no significant joint space abnormality. LUMBAR SPINE FINDINGS: AP and lateral flexion/extension views are received. ??There are five xjl-xfb-onqxmru lumbar type vertebrae. ??Mild scoliosis may be true or positional. ??Alignment is normal on the lateral views with no evidence of translation in flexion/extension. ??No focal bony lesion is seen. ??Disc space height is well preserved. ??There is no focal abnormality. D: ??01/13/06 T: ??01/15/06 / Procedure Note Leonor Almaraz MD - 03/30/2009 BACK PAIN. BILATERAL HIP PAIN. ASSESS INSTABILITY. PELVIS; LUMBAR SPINE: 01/13/06 CLINICAL HISTORY: Back pain and bilateral hip pain; assess instability. PELVIS FINDINGS: A single view of the pelvis shows minimal pelvic enthesopathy. No focal bony lesion is identified. The SI joints appear symmetric and are unremarkable. Both hips are unremarkable with no significant joint space abnormality. LUMBAR SPINE FINDINGS: AP and lateral flexion/extension views are received. There are five utk-ced-bnemtip lumbar type vertebrae. Mild scoliosis may be true or positional. Alignment is normal on the lateral views with no evidence of translation in flexion/extension. No focal bony lesion is seen. Disc space height is well preserved. There is no focal abnormality. Jean Jefferson PA-C [facility] DIAGNOSTIC IMAGI NG ORDERABLES * L SPINE 2-3 VIEWS (01/13/2006 14:46 EDT) Anatomical Region Laterality Modality Other 01/13/2006 14:4 6 EDT Narrative 03/30/2009 10:46 EDT BACK PAIN. BILATERAL HIP PAIN. ASSESS INSTABILITY. PELVIS; LUMBAR SPINE: ??01/13/06 CLINICAL HISTORY: ?? Back pain and bilateral hip pain; assess instability. PELVIS FINDINGS: A single view of the pelvis shows minimal pelvic enthesopathy. ??No focal bony lesion is identified. ??The SI joints appear symmetric and are unremarkable. ??Both hips are unremarkable with no significant joint space abnormality. LUMBAR SPINE FINDINGS: AP and lateral flexion/extension views are received. ??There are five vyh-esw-dsmpuca lumbar type vertebrae. ??Mild scoliosis may be true or positional. ??Alignment is normal on the lateral views with no evidence of translation in flexion/extension. ??No focal bony lesion is seen. ??Disc space height is well preserved. ??There is no focal abnormality. D: ??01/13/06 T: ??01/15/06 Procedure Note Leonor Almaraz MD - 03/30/2009 BACK PAIN. BILATERAL HIP PAIN. ASSESS INSTABILITY. PELVIS; LUMBAR SPINE: 01/13/06 CLINICAL HISTORY: Back pain and bilateral hip pain; assess instability. PELVIS FINDINGS: A single view of the pelvis shows minimal pelvic enthesopathy. No focal bony lesion is identified. The SI joints appear symmetric and are unremarkable. Both hips are unremarkable with no significant joint space abnormality. LUMBAR SPINE FINDINGS: AP and lateral flexion/extension views are received. There are five gyo-cxn-drrvbwm lumbar type vertebrae. Mild scoliosis may be true or positional. Alignment is normal on the lateral views with no evidence of translation in flexion/extension. No focal bony lesion is seen. Disc space height is well preserved. There is no focal abnormality. Jean Jefferson PA-C IMG DIAGNOSTIC IMAGI NG ORDERABLES documented in this encounter Visit Diagnoses Not on filedocumented in this encounter
--- OUTSIDE RECORDS SUMMARY | 2024-06-10 07:38 | XMS_ITS | Encounter Summary ---
Author Organization [facility] Address [address] [place] [address] Care Team Providers Care Production Reproduction Manager Name Role Phone Jean Munoz MD Primary Care Provider Encounter Details Date Type Department Care Team (Late st Contact Info) Description 04/04/2006 Office Visit [facility] [place] [address] [place] [address] Alexi Diaz PA [address] [place] [address] Social History Tobacco Use Types Packs/Day Years Used Date Smoking Tobacco: Never Assessed Sex and Gender Information Value Date Recorded Sex Assigned at Not on file Gender Identity Female 08/11/2019 16:07 EST Sexual Orientation Not on file documented as of this encounter Progress Notes * Alexi Diaz - 11/06/2009 2227 EST Department - Physician Summary Registration Date/Time: 04/04/2006 20:33 Arrived- By private vehicle. Historian - patient. HISTORY OF PRESENT ILLNESS Chief Complaint: COUGH. Is still present. She has had a cough and difficulty breathing. The patient has had similar symptoms previously. PAST HISTORY Allergies: The patient's allergies have been reviewed. ADDITIONAL NOTES The nursing notes have been reviewed. PHYSICAL EXAM Appearance: Alert. Occ cough. Vital Signs: Have been reviewed - ENT: Ears normal. Nose normal. Pharynx normal. Neck: Normal inspection. Neck supple. CVS: Normal heart rate and rhythm. Respiratory: No respiratory distress. Rhonchi present in the right lung base posteriorly. Breath sounds normal. Abdomen: Abdomensoft. Back: Normal inspection. Skin: Normal skin color. Skin warm. Extremities: Extremities exhibit normal ROM. No lower extremity edema. Neuro: Oriented X 3. No motor deficit. No sensory deficit. PROGRESS AND PROCEDURES ED Attending on duty and available for supervision: Doreen Schuler. Disposition: Discharged home. Condition: good. Discharged home in good condition. CLINICAL IMPRESSION Pneumonia . INSTRUCTIONS Take Tylenol (Acetaminophen) or Motrin (Ibuprofen) as needed for fever control. Take medication according to label instructions. Drink plenty of fluids. Stop smoking. Your Current Medications: Continue current medications. Prescription Medications: Tessalon Perles 100 mg: every 8 hours as needed for cough. Dispense fifteen (15). No refills. Generic substitute OK. Zithromax 250 mg tablets: take 1 orally today, every day for the next 4 days. Total course 5 days. No refills. Generic substitution OK. Follow-up: Follow up with your doctor in three days if not better. (Electronically signed by Alexi Diaz P.A. 04/07/2006 13:13) Department - Nursing Summary Registration Date/Time: 04/04/2006 20:33 TRIAGE Initial Assessment Triage time 20:34 Apr 04 2006 . Acuity: LEVEL 4. BP: 117 / 77. HR: 65. RR: 20. Temp: 36.4 tympanic. O2 saturation: 99 % room air. Alert. Weight = 194 lbs. (per patient report). Height = 64 in (per patient report). --2039 Jemima Palma R.N. Medications ( Jesusita 180mg qd, Flovent, Albuterol, Celexa 20mg qd, Prilosec 40mg bid). --2039 Jemima Palma R.N. Allergies No known drug allergies. --2039 Jemima Palma R.N. History Chief Complaint: DYSPNEA and COUGH ( URI, bilat ear pain). Onset (10 days ago). Pain level now: 8. The patient has had fever (intermittent). The patient has had a nonproductive cough. ( bilat ear pain , sore throat,). 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 ( vaporizer, expectorants, Sucrets lozenges). PAST HX: Bronchitis and COPD. No infectious disease exposure. Had hysterectomy due to uterine prolapse (in 1995). Salpingectomy ( for ectopic). ( Depression,,. borderline DM,). SOCIAL HX: Cigarette smoker: 1 pack per day. No alcohol use. Functional assessment performed: wearsglasses. No report of abuse. Arrived by private vehicle. Historian: patient. --2039 Jemima Palma R.N. PAST HX. NURSING PROGRESS NOTES Progress Patient gowned. Head of bedelevated. Call light placed in reach. Side rails up x 1. Bed placed in lowest position. Brakes of bed on. --2042 Alexus Mendez ALBUTEROL nebulizer treatment #1 ( 5 mg) with ATROVENT (1 unit dose) given by nurse. . --emily Rosa R.N. ( xray pending, pt smells strongly of cigarette smoke). --2113 Lala Rosa R.N. Pt reports felling SOB after neb. Pt reports no change, no relief. --2215 Rivas Fletcher R.N. AZITHROMYCIN 500mg PO. . --2243 Jesi Perez R.N. TESSALON PERLES 100 mg PO. . --2299 Jesi Perez R.N. DISPOSITION / DISCHARGE Condition at departure: stable. Fall risk assessment completed. No fall risk identified. No learning barriers present. Discharge instructions reviewed with the patient. Reviewed medication side effects, precautions, dosing and course; prescription (s) given to the patient (azithromycin and tessalonpearles). Patient verbalized understanding. Written instructions provided in Kinyarwanda. The patient was discharged home and accompanied by spouse. The patient left the Emergency Department ambulatory and via private vehicle. Spousedriving. --2243 Mayra Ng R.N., E.M.T. Audra Fisher R.N. Austin Ganzenmuller, R.N. Jessica Trump R.N. Locked/Released at 04/04/2006 23:00 by Jesi Perez R.N. documented in this encounter Plan of Treatment Upcoming Encounters Date Type Department Care Team (Late st Contact Info) Description 06/29/2024 14:15 EDT Office Visit [facility] [address] [place] [address] Jean Munoz MD [address] [place] [address] documented as of this encounter Visit Diagnoses Not on filedocumented in this encounter Care Teams Production Reproduction Manager Relationship Specialty Start Date End Date Jean Munoz MD [address] [place] [address] PCP - General 12/31/08 documented as of this encounter
--- OUTSIDE RECORDS SUMMARY | 2024-06-10 07:38 | XMS_ITS | Encounter Summary ---
Author Organization [facility] Address [address] [place] [address] Care Team Providers Care Predator Control Trapper Name Role Phone Unavailable Primary Care Provider Unavailabl e Encounter Details Date Type Department Care Team (Late st Contact Info) Description 12/30/2006 14:57 EDT Hospital Encounter [facility] [address] [place] [address] Afshan Ramey MD [address] [place] [address] [address] [place] [phone] Discharge Disposition: Auto Discharge Social History Tobacco [...] 06/29/2024 14:15 EDT Office Visit [facility] Family Medicine [facility] [address] [place] [address] Jean Munoz MD [address] [place] [phone] (work) documented as of this encounter Visit Diagnoses Not on filedocumented in this encounter
--- OUTSIDE RECORDS SUMMARY | 2024-06-10 07:38 | XMS_ITS | Encounter Summary ---
Author Organization [facility] Address [address] [place] [address] Care Team Providers Care Delivery Representative Name Role Phone Unavailable Primary Care Provider Unavailabl e Encounter Details Date Type Department Care Team (Latest Contact Info) Description 12/04/2005 14:40 EST Hospital Encounter [facility] [address] [place] [address] Jean Munoz MD [address] [place] [phone] Discharge Disposition: Auto Discharge Social History [...] EDT Office Visit [facility] [address] [place] [address] Jean Munoz MD [address] [place] [address] documented as of this encounter Procedures Procedure Name Priority Date/Time Associated Diagnosis Comments HELICOBACTER PYLORI Routine 12/04/2005 1 5:48 EST COMPLETE BLOOD COUNT AND DIFFERENTIAL Routine 12/04/2005 15:48 EST LIPASE Routine 12/04/2005 15:48 EST COMPREHENSIVE METABOLIC PANEL (CMP) Routine 12/04/2005 15:48 EST documented in this encounter Results * LIPASE (12/04/2005 15:48 EST) Lipase 122 0 - 250 U/L [facility] 12/04/2005 15:4 8 EST 12/04/2005 17:54 EST Jean Munoz MD CHEMISTRY & BLO OD GAS ORDERABLES Performing Organization Address [facility] de Phone Number [facility] [address] [place] [address] * HELICOBACTER PYLORI (12/04/2005 15:48 EST) H Pylori IgG 0.27 EIA Value TALHA CHIN Comment: <0.91 = Negative 0.91 - 1.09 ??= Equivocal >1.09 = Positive. 12/04/2005 15:4 8 EST 12/04/2005 17:54 EST Jean Munoz MD HISTORICAL LAB FOR SQ LOAD Performing Organization Address [facility] de Phone Number [facility] [address] [place] [address] * (ABNORMAL) COMPREHENSIVE METABOLIC PANEL (12/04/2005 15:48 EST) Potassium 3.9 3.5 - 5.0 mEq/L [facility] Sodium 138 136 - 145 mEq/L [facility] Chloride 109 96 - 110 mEq/L [facility] CO2 20(L) 24 - 32 mEq/L [facility] Total Alkaline Phosphatase 89 38 - 126 U/L [facility] Bilirubin, Total <0.5 0.2 - 1.3 mg/dl [facility] AST 17 15 - 46 U/L [facility] ALT 24 9 - 52 U/L [facility] Albumin 4.2 3.4 - 4.9 g/dl [facility] Total Protein 7.1 6.5 - 8.3 g/dl [facility] Creatinine 0.8 0.7 - 1.5 mg/dl [facility] BUN 9(L) 10 - 26 mg/dl [facility] Calcium 9.1 8.5 - 10.5 mg/dl [facility] Calculated Calcium 9.3 8.5 - 10.5 mg/dl [facility] Glucose, Serum 95 70 - 110 mg/dl [facility] Fasting? No [facility] Albumin/Globulin Ratio 1.4 [facility] 12/04/2005 15:4 8 EST 12/04/2005 17:54 EST Jean Munoz MD CHEMISTRY & BLO OD GAS ORDERABLES [facility] [address] [place] [address] * (ABNORMAL) HEMAGRAM AND DIFFERENTIAL (12/04/2005 15:48 EST) WBC 9.69 4.0 - 12.4 K/cmm [facility] RBC 4.29 3.86 - 5.04 M/cmm [facility] Hemoglobin 14.1 11.6 - 15.2 gm/dl [facility] HCT 42.2 34.9 - 44.4 % [facility] MCV 98 81 - 98 fl [facility] MCH 32.9 26.7 - 33.3 pg [facility] MCHC 33.5 32.1 - 35.9 gm/dl [facility] PLT 438(H) 141 - 320 K/cmm [facility] RDW-CV 14.4 11.7 - 14.6 % [facility] % Neutrophils 56.7 45.5 - 79.7 % [facility] % Lymphocytes 31.6 15.0 - 46.8 % [facility] % Monocytes 6.6 1.8 - 12.0 % [facility] % Eosinophils 4.6 0.6 - 6.9 % [facility] % Basophils 0.5 0.2 - 1.4 % [facility] ABS Neutrophils 5.50 2.20 - 8.85 K/cmm [facility] ABS Lymphs 3.06 1.09 - 3.30 K/cmm [facility] ABS Monocytes 0.64 0.1 - 0.8 K/cmm [facility] Eosinophils 0.44 0.03 - 0.61 K/cmm [facility] Basophils 0.05 0.01 - 0.11 K/cmm [facility] Type of Diff: Automated [facility] 12/04/2005 15:4 8 EST 12/04/2005 17:54 EST Jean Munoz MD PACKAGES & DNA PROBE ORDERABLES [facility] [address] [place] [address] documented in this encounter Visit Diagnoses Not on filedocumented in this encounter
--- OUTSIDE RECORDS SUMMARY | 2024-06-10 07:38 | XMS_ITS | Encounter Summary ---
Author Organization [facility] Address [address] [place] [address] Care Team Providers Care Porcelain Slusher Name Role Phone Unavailable Primary Care Provider Unavailabl e Encounter Details Date Type Department Care Team (Late st Contact Info) Description 02/10/2006 11:21 EDT - 02/10/2006 11:59 EDT Hospital Encounter [facility] [address] [place] [address] Afshan Ramey MD [address] [facility] [address] [place] [phone] Discharge Disposition: Auto Discharge Social History Tobacco [...] Office Visit [facility] Family Medicine [facility] [address] [place] [address] Jean Munoz MD [address] [place] [phone] documented as of this encounter Visit Diagnoses Not on filedocumented in this encounter
--- OUTSIDE RECORDS SUMMARY | 2024-06-10 07:38 | XMS_ITS | Encounter Summary ---
Author Organization [facility] Address [address] [place] [address] Care Team Providers Care Order Entry Technician Name Role Phone Unavailable Primary Care Provider Unavailabl e Encounter Details Date Type Department Care Team (Latest Contact Info) Description 04/04/2006 20:33 EDT Hospital Encounter [facility] Emergency Department - [facility] [address] [place], [place] [phone] Emergency, MD Ismael Discharge Disposition: Home or [...] 14:15 EDT Office Visit [facility] Family Medicine [facility] [address] [place] [address] Jean Munoz MD [address] [place] [address] documented as of this encounter Procedures Procedure Name Priority Date/Time Associated Diagnosis Comments CHEST PA AND LATERAL 04/04/2006 21:56 EDT documented in this encounter Results * CHEST PA AND LATERAL (04/04/2006 21:56 EDT) Anatomical Region Laterality Modality Other 04/04/2006 21:5 6 EDT Narrative 03/30/2009 13:48 EDT COUGH/SOB R/O INFILTARATE PA AND LATERAL CHEST 04/04/06 CLINICAL HISTORY: ??cough, shortness of breath COMPARISON: none FINDINGS: Per the emergency department, the patient has a known smoking history. This is reflected in the patient's chest radiograph with attenuation of the vasculature of the upper lungs peripherally. The patient has apical pleural thickening on the right. ??Hazy ill-defined opacity is present in the right lower lung. In addition, the patient has bilateral perihilar, peribronchial cuffing. No pneumothorax or effusion is seen. Osseous structures are unremarkable. ??The mediastinal and cardiac silhouette is within normal limits. IMPRESSION: ? 1. ?? Smoking ?related changes. D 04/04/06 T 04/07/06 /haylie I have personally reviewed the images and the above interpretation and agree with the findings. Procedure Note Cally Roth DMD / Malcolm Michele MD - 03/30/2009 COUGH/SOB R/O INFILTARATE PA AND LATERAL CHEST 04/04/06 CLINICAL HISTORY: cough, shortness of breath COMPARISON: none FINDINGS: Per the emergency department, the patient has a known smoking history. This is reflected in the patient's chest radiograph with attenuation of the vasculature of the upper lungs peripherally. The patient has apical pleural thickening on the right. Hazy ill-defined opacity is present in the right lower lung. In addition, the patient has bilateral perihilar, peribronchial cuffing. No pneumothorax or effusion is seen. Osseous structures are unremarkable. The mediastinal and cardiac silhouette is within normal limits. IMPRESSION: 1. Smoking related changes. D 04/04/06 T 04/07/06 /haylie I have personally reviewed the images and the above interpretation and agree with the findings. Alexi GANDHI IMG DIAGNOSTIC I MAGING ORDERABLES documented in this encounter Visit Diagnoses Not on filedocumented in this encounter
--- OUTSIDE RECORDS SUMMARY | 2024-06-10 07:38 | XMS_ITS | Encounter Summary ---
Author Organization [facility] Address [address] [place] [address] Care Team Providers Care Raw Cheese Worker Name Role Phone Jean Munoz MD Primary Care Provider Encounter Details Date Type Department Care Team (Late st Contact Info) Description 02/17/2007 Before PRISM Converted Visit ([place]) [facility] [place] [facility] [address] [place], [place] [address] Koby Flynn MD [address] [facility] [address] [place] [phone] Social History Tobacco Use Types Packs/Day Years Used Date Smoking Tobacco: Never Assessed Sex and Gender Information Value Date Recorded Sex Assigned at Not on file Gender Identity Female 08/11/2019 16:07 EST Sexual Orientation Not on file documented as of this encounter Progress Notes * Koby Flynn MD - 07/21/20092119 EST DIVISION OF GENERAL SURGERY PROGRESS/FOLLOWUP NOTE - 03/17/2007 SUBJECTIVE I am seeing Liset Viera today in followup approximately two weeks S/P laparoscopic Aspen fundoplication. This was done for non forceful regurgitation and heartburn. She did well with the surgery and had an uneventful postoperative recovery. She has no regurgitation or heartburn at this point. She is off her Prilosec. She has had minimal dysphagia and, indeed, tolerated pork chops yesterday. She has also tried bread. She has minimal gas bloat symptoms. OBJECTIVE On exam, her abdomen is soft. Incisions are well healed. There is no sign of infection or hernia atany site. She did have a small skin excoriation right and inferior to the middle incision. ASSESSMENT S/P laparoscopic Aspen fundoplication. She is overall doing well and is very pleased with the results of her surgery. Of note, we reinforced the closure of the hiatus with an AlloDerm patch. I explained to her the rationale for this and the surgery itself. Again, she was quite pleased and doing well. PLAN Continue to advance the diet as tolerated, avoid any heavy lifting until the end of the month. I would like to see her back in May for another postoperative check. Signed by Koby Flynn MD, FACS 03/20/2007 11:00 Vivian Flynn MD, [id number] C Borrazzo, MD, FACS Koby Flynn MD, FACS [phone] -Koby Flynn MD, FACS - Job ID: [id number] Doc ID: [id number] cc: Jean Munoz MD documented in this encounter Consult Notes * Koby Flynn MD - 07/19/20092042 EST DIVISION OF GENERAL SURGERY CONSULTATION - 02/17/2007 PREOPERATIVE HISTORY AND PHYSICAL EXAMINATION REASON FOR CONSULTATION GERD. HISTORY OF PRESENT ILLNESS I was asked to see Negin Viera in consultation today by Dr. Afshan Ramey for GERD. This is a 46woman who has had non-forceful regurgitation and heartburn. Prilosec does help the heartburn but she still gets regurgitation daily. Daytime is equal to night and she can wake up with regurgitation in her mouth or on a pillow. She often has to swallow or spit out the regurgitant. She does elevate the head of her bed on blocks. She tries to eat at least five hours before bedtime. She st ates the symptoms do increase. She has no dysphagia or chronic cough. She has no voice hoarseness, sinusitis or globus hysterectomy sensation. She has occasional chest pain with eating and sometimes even liquids. She is here today to discuss the possibility of laparoscopic fundoplication to treat her medically refractory GERD. PAST MEDICAL HISTORY Medical: Significant for asthma which she developed 10-15 years ago and osteoarthritis. Surgical: Vaginal hysterectomy for uterine prolapse and left shoulder surgery. FAMILY HISTORY Mom alive without any history of cancer or heart disease. Dad from esophageal cancer at age 55. 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 She smoked on average one pack per day for the last 30 years. Alcohol: None. CURRENT MEDICATIONS Albuterol, Flovent, Nasonex - all doses unknown. Celexa 40 mg p.o. daily, Vicodin as needed, Prilosec 40 mg p.o. b.i.d. ALLERGIES No known drug allergies. REVIEW OF SYSTEMS Bowel movements every other day. Urine is normal. She has had a weight gain of over 10 pounds over the past six months. All other systems reviewed and negative. The patient has some postprandial bloating. PHYSICAL EXAM Height 5 feet 4 inches, weight 210 pounds, afebrile, vital signs are stable. General: No acute distress. HEENT normal, sclerae nonicteric. Neck supple. Skin normal, no jaundice. Lungs clear bilaterally. Heart regular rate and rhythm. Abdomen is soft, nondistended, nontender, and no masses. Vascular normal. Musculoskeletal normal. Neurologic normal. Patient had an upper endoscopy which showed no evidence of hiatal hernia. It did show some esophagitis. She had pH probe testing which showed multiple spikes throughout the testing period, total time pH was less than 4 was 8.7%, DeMeester scores were elevated on both days. She had good symptom correlation with her heartburn and regurgitation. Her esophageal manometry was normal. ASSESSMENT GERD which is only partially responsive to PPI therapy. She has continued to have regurgitation although she has had decrease in the heartburn with her medication. She has evidence of pathologic reflux on pH probe testing with esophagitis. I think shewould benefit from laparoscopic Aspen fundoplication. PLAN Laparoscopic Aspen fundoplication. The procedure was described. Risks were outlined including infection, bleeding, injury to the liver or spleen, injury to the esophagus or stomach, injury to the aorta or vena cava, recurrent reflux, gas bloat symptoms and dysphagia. There is also a chance of having to convert to an open procedure. She understood this and was willing to proceed. We will get a gastric emptying scan just sot be sure she does not have any evidence of gastroparesis which would preclude surgery. We will then proceed to surgery at the first mutually convenient time. Signed by Koby Flynn MD, FACS 02/23/2007 12:57 Vivian Flynn MD, [id number] C Borrazzo, MD, FACS Koby Flynn MD, FACS [phone] -Koby Flynn MD, FACS - Job ID: [id number] Doc ID: [id number] cc: Koby Flynn MD, FACS MD Afshan Villar MD documented in this encounter Plan of Treatment Upcoming Encounters Date Type Department Care Team (Late st Contact Info) Description 06/29/2024 14:15 EDT Office Visit [facility] [address] [place] [address] Jean Munoz MD [address] [place] [phone] documented as of this encounter Visit Diagnoses Not on filedocumented in this encounter Care Teams Raw Cheese Worker Relationship Specialty Start Date End Date Jean Munoz MD [address] [place] [phone] PCP - General 12/31/08 documented as of this encounter
--- OUTSIDE RECORDS SUMMARY | 2024-06-10 07:38 | XMS_ITS | Encounter Summary ---
Author Organization [facility] Address [address] [place] [address] Care Team Providers Care Cane Burner Name Role Phone Unavailable Primary Care Provider Unavailabl e Encounter Details Date Type Department Care Team (Latest Contact Info) Description 06/28/2008 13:20 EDT Hospital Encounter [facility] [address] [place] [address] Jean Munoz MD [address] [place] [phone] Discharge Disposition: Auto Discharge Social History [...] [facility] [address] [place], [place] [phone] Jean Munoz MD 3 [place] [phone] documented as of this encounter Procedures Procedure Name Priority Date/Time Associated Diagnosis Comments SED RATE Routine 06/28/2008 14:31 EDT COMPLETE BLOOD COUNT Routine 06/28/2008 14:31 EDT LIPASE Routine 06/28/2008 14:31 EDT LIPID PROFILE (INCLUDES CHOLESTEROL, TRIGLYCERIDES, HDL, LDL) Routine 06/28/2008 14:31 EDT COMPREHENSIVE METABOLIC PANEL (CMP) Routine 06/28/2008 14:31 EDT documented in this encounter Results * LIPASE (06/28/2008 14:31 EDT) Lipase 51 0 - 250 U/L [facility] 06/28/2008 14:3 1 EDT 06/28/2008 17:08 EDT Jean Munoz MD CHEMISTRY & BLO OD GAS ORDERABLES Performing Organization Address City/[facility] Co de Phone Number [facility] [address] [place] [address] * SED. RATE:WESTERGREN (06/28/2008 14:31 EDT) Sed. Rate Westergren 4 0 - 20 mm/hr [facility] 06/28/2008 14:3 1 EDT 06/28/2008 17:08 EDT Jean Munoz MD HEMATOLOGY & PF 4 ORDERABLES Performing Organization Address City/[facility] [address]/[facility] Co de Phone Number [facility] [address] [place] [address] * (ABNORMAL) HEMAGRAM (06/28/2008 14:31 EDT) WBC 8.67 4.0 - 12.4 K/cmm [facility] RBC 4.05 3.86 - 5.04 M/cmm [facility] Hemoglobin 13.7 11.6 - 15.2 gm/dl [facility] HCT 39.7 34.9 - 44.4 % [facility] MCV 98 81 - 98 fl [facility] MCH 33.8(H) 26.7 - 33.3 pg [facility] MCHC 34.5 32.1 - 35.9 gm/dl [facility] PLT 371(H) 141 - 320 K/cmm [facility] RDW-CV 13.8 11.7 - 14.6 % [facility] 06/28/2008 14:3 1 EDT 06/28/2008 17:08 EDT Jean Munoz MD HEMATOLOGY & PF 4 ORDERABLES Performing Organization Address [facility] [address]/[facility] Co de Phone Number [facility] [address] [place] [address] * LIPID PROFILE (06/28/2008 14:31 EDT) Cholesterol 159 mg/dl [facility] Comment: Desirable:<200 Borderline:200-239 High Risk:>ug=[id number] Triglycerides 140 35 - 160 mg/dl [facility] HDL 48 mg/dl [facility] Comment: Highly Desirable:>60 Desirable:35-60 High Risk:<35 LDL, Calculated 83 mg/dl [facility] Comment: Desirable:<130 Borderline:130-159 High Risk:>ca=227 Chol/HDL Ratio 3.3 [facility] Fasting? No [facility] 06/28/2008 14:3 1 EDT 06/28/2008 17:08 EDT Jean Munoz MD CHEMISTRY & BLO OD GAS ORDERABLES Performing Organization Address City/[facility] [address]/[facility] Co de Phone Number [facility] [address] [place] [address] * (ABNORMAL) COMPREHENSIVE METABOLIC PANEL (06/28/2008 14:31 EDT) Potassium 4.3 3.5 - 5.0 mEq/L [facility] Sodium 140 136 - 145 mEq/L [facility] Chloride 106 96 - 110 mEq/L [facility] CO2 28 24 - 32 mEq/L [facility] Alkaline Phosphatase 66 38 - 126 U/L [facility] Bilirubin, Total <0.5 0.2 - 1.3 mg/dl [facility] AST 20 15 - 46 U/L [facility] ALT 19 9 - 52 U/L [facility] Albumin 4.4 3.4 - 4.9 g/dl [facility] Total Protein 6.9 6.5 - 8.3 g/dl [facility] Creatinine 0.69(L) 0.7 - 1.5 mg/dl [facility] GFR, Calculated >60 ml/min/1.7 3m2 [facility] BUN 11 10 - 26 mg/dl [facility] Calcium 9.0 8.5 - 10.5 mg/dl [facility] Calculated Calcium 9.0 8.5 - 10.5 mg/dl [facility] Glucose, Serum 87 70 - 100 mg/dl [facility] Fasting? No [facility] 06/28/2008 14:3 1 EDT 06/28/2008 17:08 EDT Jean Munoz MD CHEMISTRY & BLO OD GAS ORDERABLES [facility] [address] [place] [address] documented in this encounter Visit Diagnoses Not on filedocumented in this encounter
--- OUTSIDE RECORDS SUMMARY | 2024-06-10 07:38 | XMS_ITS | Encounter Summary ---
Author Organization [facility] Address [address] [place] [address] Care Team Providers Care Gravity Prospecting Supervisor Name Role Phone Jean Munoz MD Primary Care Provider Encounter Details Date Type Department Care Team (Late st Contact Info) Description 07/25/2008 Before PRISM Converted Visit (Maple) [facility] - [facility] conversion [address] [place] [address] Jean Jefferson PA-C [address] [place] [address] [place] [phone] Social History Tobacco Use Types Packs/Day Years Used Date Smoking Tobacco: Never Assessed Sex and Gender Information Value Date Recorded Sex Assigned at Not on file Gender Identity Female 08/11/2019 16:07 EST Sexual Orientation Not on file documented as of this encounter Progress Notes * Jean Jefferson MD - 04/06/2009 0549 EDT [facility] [address] [place] [address] PROGRESS/FOLLOWUP NOTE - 07/25/2008 Primary Care Provider: Jean Munoz MD Referred by: Jean Munoz MD Attending: HIRAM Carrillo SUBJECTIVE She is a 47-year-old female last seen in our office on June 14, 2008 with neck and bilateral upper extremity symptoms, right greater than left. Since that time she had had primarily right upper extremity symptoms, had tried neuroleptics with no reliefof her symptoms, in fact made her more dizzy. We discontinued this medication. Since our last visit she underwent a TFESI at 6-7 on the right with reduction of the achiness in the right upper extremity although she still has numbness and tinglingbut herarm symptoms are improving. Her neck outweighs her arm 90% and 10% with a pain level of 6, at best a 4, at worst a 10, although the 10 level occurs daily. It is constant, alleviated with heat and medication, exacerbated by housework, walking, standing for extended periods and doing dishes. OBJECTIVE On physical examination deltoids 5/5 bilaterally, biceps on the right 4+/5, triceps 5/5. Wrist extensors 4+/5, wrist flexors 4+/5. ASSESSMENT This is a 47-year-old female with HNP at 5-6 and 6-7, right upper extremity radicular symptoms, C7 dermatome distribution. Had a transforaminal epidural steroid injection at 6-7 on the right with moderate relief of her achiness and at this point she has persistent neck pain and some tingling and numbness in the right upper extremity. Things are improving but still persist and she is quite annoyed. She had undergone medial branch blocks which provided her with half day relief of her symptoms. She was scheduled for radiofrequency ablation but it hasnbeen scheduled until September. We will pursue other options including radiofrequency ablation at [facility] as a means of alleviating her pain. If after this procedure she has not had satisfactory relief, we will schedulea surgical consult to at least discuss her options and she is open to that. PLAN 1. Will follow up p.r.n. Thank you for allowing the [facility] to participate in the care of your patient. I look forward to working with you in the near future. Signed by HIRAM Carrillo 08/13/2008 09:07 HIRAM Carrillo - HIRAM Carrillo - ALEX Job ID: [id number] Doc ID: [id number] cc: MD Liset Villar [address] [place] [address]* documented in this encounter Plan of Treatment Upcoming Encounters Date Type Department Care Team (Late st Contact Info) Description 06/29/2024 14:15 EDT Office Visit [facility] [address] [place] [address] Jean Munoz MD [address] [place] [phone] documented as of this encounter Visit Diagnoses Not on filedocumented in this encounter Care Teams Gravity Prospecting Supervisor Relationship Specialty Start Date End Date Jean Munoz MD [address] [place] [phone] PCP - General 12/31/08 documented as of this encounter
--- OUTSIDE RECORDS SUMMARY | 2024-06-10 07:38 | XMS_ITS | Encounter Summary ---
Author Organization [facility] Address [address] [place] [address] Care Team Providers Care Pharmacy Tech Name Role Phone Unavailable Primary Care Provider Unavailabl e Encounter Details Date Type Department Care Team (Late st Contact Info) Description 08/10/2006 13:45 EST Hospital Encounter [facility] - Maple conversion [address] [place] [address] Jean Munoz MD [address] [place] [phone] Social History Tobacco Use Types Packs/Day [...] EDT Office Visit [facility] 3 [place] [address] Jean Munoz MD [address] [place] [phone] documented as of this encounter Visit Diagnoses Not on filedocumented in this encounter Additional Health Concerns Infection Onset Date Last Indicated Resolved Time R/O COVID-19 05/15/2022 05/15/2022 05/20/2022 22:1 6 EDT R/O COVID-19 11/14/2022 11/14/2022 11/14/2022 19:1 6 EST documented as of this encounter
--- OUTSIDE RECORDS SUMMARY | 2024-06-10 07:38 | XMS_ITS | Encounter Summary ---
Author Organization [facility] Address [address] [place] [address] Care Team Providers Care Product Advisor Name Role Phone Unavailable Primary Care Provider Unavailabl e Encounter Details Date Type Department Care Team (Latest Contact Info) Description 12/23/2005 17:29 EDT Hospital Encounter [facility] [address] [place] [address] Jean Munoz MD [address] [place] [phone] Discharge Disposition: Auto Discharge Social History [...] [facility] [address] [place], [place] [phone] Jean Munoz MD [address] [place] [phone] documented as of this encounter Procedures Procedure Name Priority Date/Time Associated Diagnosis Comments MR LUMBAR SPINE WO CONTRAST 12/23/2005 18:59 EDT documented in this encounter Results * MR LUMBAR SPINE WO CONTRAST (12/23/2005 18:59 EDT) Anatomical Region Laterality Modality Other 12/23/2005 18:5 9 EDT Narrative 03/30/2009 12:36 EDT CHRONIC BACK/HIP PAIN X YEARS MRI OF THE LUMBAR SPINE: ??12/23/05. ??1841. IMPRESSION: Incidental finding of a right L2-L3 root cyst. Otherwise, normal MRI of the lumbar spine. CLINICAL HISTORY: ??Chronic back and hip pain for years. Evaluate for disc herniation. TECHNIQUE: Sagittal and transverse FSE T1 and T2, coronal FSE T2 weighted non-contrast MR images of the lumbar spine were obtained. COMPARISON EXAMINATION: None. FINDINGS: ??The vertebral marrow and the cord signal are normal. The height of the vertebral bodies and the disc spaces are well preserved. ??Central, lateral recess, or foraminal stenosis are not identified. A root cyst is seen in the right L2-L3 neural foramen which is an incidental finding of no clinical significance. D: ??12/24/05 T: ??12/25/05 /froilan. Procedure Note Radha Vizcarra MD - 03/30/2009 CHRONIC BACK/HIP PAIN X YEARS MRI OF THE LUMBAR SPINE: 12/23/05. 1841. IMPRESSION: Incidental finding of a right L2-L3 root cyst. Otherwise, normal MRI of the lumbar spine. CLINICAL HISTORY: Chronic back and hip pain for years. Evaluate for disc herniation. TECHNIQUE: Sagittal and transverse FSE T1 and T2, coronal FSE T2 weighted non-contrast MR images of the lumbar spine were obtained. COMPARISON EXAMINATION: None. FINDINGS: The vertebral marrow and the cord signal are normal. The height of the vertebral bodies and the disc spaces are well preserved. Central, lateral recess, or foraminal stenosis are not identified. A root cyst is seen in the right L2-L3 neural foramen which is an incidental finding of no clinical significance. /lds. Jean Munoz MD IMG MRI ORDERAB LES documented in this encounter Visit Diagnoses Not on filedocumented in this encounter
--- OUTSIDE RECORDS SUMMARY | 2024-06-10 07:38 | XMS_ITS | Encounter Summary ---
Author Organization [facility] Address [address] [place] [address] Care Team Providers Care Sql Dba Name Role Phone Jean Munoz MD Primary Care Provider Encounter Details Date Type Department Care Team (Late st Contact Info) Description 12/30/2006 Before PRISM Converted Visit (Maple) [facility] - Maple conversion [address] [place] [address] Afshan Ramey MD [address] [facility] [address] [place] [phone] Social History Tobacco Use Types Packs/Day Years Used Date Smoking Tobacco: Never Assessed Sex and Gender Information Value Date Recorded Sex Assigned at Not on file Gender Identity Female 08/11/2019 16:07 EST Sexual Orientation Not on file documented as of this encounter Progress Notes * Afshan Ramey MD - 07/21/2009 1209 EST DIVISION OF GASTROENTEROLOGY PROGRESS/FOLLOWUP NOTE - 12/30/2006 Ms. Viera is a 46-year-old woman with seasonal allergies and arthritis whom I first saw February 10, 2006 for upper endoscopy due to GERD symptoms. During that upper endoscopy grade one nonerosive esophagitis was identified. She was placed on b.i.d. PPI and antireflux measures. She reports that her heartburn is relievedwith b.i.d. PPI but she continues to have regurgitation of food with almost every meal. She denies fever, chills, sweats, nausea, vomiting, diarrhea or other constitutional symptoms. PAST MEDICAL HISTORY Is significant for greater than 20 pack year history of tobacco. She drinks rare alcohol. She denies IV drug use, cocaine use, or transfusions. She has two tattoos, one on the left side, the other onthe right ankle professionally obtained. She denies piercings. She denies sexual or physical assaults. She drinks one to two cups of caffeine per day. She denies herbal medications. FAMILY HISTORY Significant for father with reflux disease and esophageal adenocarcinoma. PAST SURGICAL HISTORY She had a hysterectomy in 1996. ALLERGIES No known drug allergies. CURRENT MEDICATIONS Albuterol, Flovent, Nasonex, Celexa, and Wellbutrin. PHYSICAL EXAMINATION On physical examination she is a well developed, well nourished obese female in no acute distress. Her vital signs are stable. Her weight is 208 pounds. Sclerae: Anicteric. Neck: Supple without adenopathy. Lungs: Clear. Heart: Regular, rate and rhythm. Abdomen: Obese, soft, nontender, positive bowel sounds, no organosplenomegaly. Extremities: Without cyanosis, clubbing or edema. IMPRESSION Ms. Viera is a 46-year-old woman with seasonal allergies and arthritis who has reflux disease which appears to be refractory to b.i.d. PPI and antireflux measures. She continues to have regurgitation while she reports that her heartburn is relieved. PLAN 1) PH manometry study. 2) Followup with Dr. Flynn for discussion of fundoplication after pH manometry study. 3) Followup in clinic in two months. Signed by Afshan Ramey MD 01/06/2007 10:51 Reece Ramey [phone] Ramey MD Afshan Ramey MD [phone] - Afshan Ramey MD A - sheridan Job ID: [id number] Document ID: [id number] cc: Jean Munoz MD documented in this encounter Plan of Treatment Upcoming Encounters Date Type Department Care Team (Late st Contact Info) Description 06/29/2024 14:15 EDT Office Visit [facility] 3 [place] [address] Jean Munoz MD [address] [place] [phone] documented as of this encounter Visit Diagnoses Not on filedocumented in this encounter Care Teams Sql Dba Relationship Specialty Start Date End Date Jean Munoz MD [address] [place] [phone] PCP - General 12/31/08 documented as of this encounter
--- OUTSIDE RECORDS SUMMARY | 2024-06-10 07:38 | XMS_ITS | Encounter Summary ---
Author Organization [facility] Address [address] [place] [address] Care Team Providers Care Bank Courier Name Role Phone Unavailable Primary Care Provider Unavailabl e Encounter Details Date Type Department Care Team (Late st Contact Info) Description 01/24/2007 8:40 EDT - 01/24/2007 11:59 EDT Hospital Encounter [facility] [place] [address] [place] [address] Wili Rodriguez MD 111 [facility] [address] [place] [phone] Discharge Disposition: Auto Discharge Social History Tobacco [...] 14:15 EDT Office Visit [facility] Family Medicine [facility] [address] [place], [place] [phone] Jean Munoz MD [address] [place] [address] documented as of this encounter Visit Diagnoses Not on filedocumented in this encounter
--- OUTSIDE RECORDS SUMMARY | 2024-06-10 07:38 | XMS_ITS | Encounter Summary ---
Author Organization [facility] Address [address] [place] [address] Care Team Providers Care Production Floater Name Role Phone Unavailable Primary Care Provider Unavailabl e Encounter Details Date Type Department Care Team (Late st Contact Info) Description 02/17/2007 13:24 EDT Hospital Encounter [facility] [address] [place] [address] Afshan Ramey MD [address] [phone] Koby Flynn MD [address] [place] [phone] Discharge Disposition: Auto Discharge Social History [...] Info) Description 06/29/2024 14:15 EDT [facility] 3 [place] [address] Jean Munoz MD [address] [place] [phone] documented as of this encounter Procedures Procedure Name Priority Date/Time Associated Diagnosis Comments COMPLETE BLOOD COUNT Routine 02/17/2007 16:03 EDT documented in this encounter Results * (ABNORMAL) HEMAGRAM (02/17/2007 16:03 EDT) WBC 7.54 4.0 - 12.4 K/cmm [facility] RBC 4.00 3.86 - 5.04 M/cmm [facility] Hemoglobin 13.4 11.6 - 15.2 gm/dl [facility] HCT 38.7 34.9 - 44.4 % [facility] MCV 97 81 - 98 fl [facility] MCH 33.5(H) 26.7 - 33.3 pg [facility] MCHC 34.6 32.1 - 35.9 gm/dl [facility] PLT 370(H) 141 - 320 K/cmm [facility] RDW-CV 14.7(H) 11.7 - 14.6 % [facility] 02/17/2007 16:0 3 EDT 02/17/2007 16:11 EDT Koby Flynn MD HEMATOLOG Y & PF4 ORDERABLES [facility] [address] [place] [address] documented in this encounter Visit Diagnoses Not on filedocumented in this encounter
--- OUTSIDE RECORDS SUMMARY | 2024-06-10 07:38 | XMS_ITS | Encounter Summary ---
Author Organization [facility] Address [address] [place] [address] Care Team Providers Care Purchase Analyst Name Role Phone Unavailable Primary Care Provider Unavailabl e Encounter Details Date Type Department Care Team (Late st Contact Info) Description 05/10/2006 13:00 EDT [facility] [address] [place] [address] Jean Munoz MD [address] [place] [phone] Social History Tobacco Use Types Packs/Day [...] [facility]note 2] [address] [place] [address] Jean Munoz MD [address] [place] [phone] documented as of this encounter Visit Diagnoses Not on filedocumented in this encounter Additional Health Concerns Infection Onset Date Last Indicated Resolved Time R/O COVID-19 05/15/2022 05/15/2022 05/20/2022 22:1 6 EDT R/O COVID-19 11/14/2022 11/14/2022 11/14/2022 19:1 6 EST documented as of this encounter
--- OUTSIDE RECORDS SUMMARY | 2024-06-10 07:38 | XMS_ITS | Encounter Summary ---
Author Organization [facility] Address [address] [place] [address] Care Team Providers Care Commercial Announcer Name Role Phone Unavailable Primary Care Provider Unavailabl e Encounter Details Date Type Department Care Team (Late st Contact Info) Description 07/20/2006 9:08 [facility] Hospital Encounter [facility] - Maple conversion [address] [place] [address] Amanda Campbell MD Social History Tobacco Use Types Packs/Day [...] Never 07/15/2023 How often does anyone, incldean mercedes family, insult, scream, curse or threaten [...] Office Visit [facility] 3 [place], [place] [phone] Jean Munoz MD [address] [place] [phone] documented as of this encounter Visit Diagnoses Not on filedocumented in this encounter Additional Health Concerns Infection Onset Date Last Indicated Resolved Time R/O COVID-19 05/15/2022 05/15/2022 05/20/2022 22:1 6 EDT R/O COVID-19 11/14/2022 11/14/2022 11/14/2022 19:1 6 EST documented as of this encounter
--- OUTSIDE RECORDS SUMMARY | 2024-06-10 07:38 | XMS_ITS | Encounter Summary ---
Author Organization [facility] Address [address] [place] [address] Care Team Providers Care Ginning Operator Name Role Phone Unavailable Primary Care Provider Unavailabl e Encounter Details Date Type Department Care Team (Late st Contact Info) Description 06/26/2008 13:41 EDT Hospital Encounter [facility] [address] [place] [address] Yesenia Dee MD [address] [facility] [address] [place] [phone] Magaly Graves MD FA MAIL HOUSE STAFF [address] [place], [place] [address] Discharge Disposition: Auto Discharge Social History Tobacco [...] Office Visit [facility] 3 [place], [place] [phone] Jean Munoz MD [address] [place] [phone] documented as of this encounter Visit Diagnoses Not on filedocumented in this encounter
--- OUTSIDE RECORDS SUMMARY | 2024-06-10 07:38 | XMS_ITS | Encounter Summary ---
Author Organization [facility] Address [address] [place] [address] Care Team Providers Care Rn Utilization Management Um Name Role Phone Unavailable Primary Care Provider Unavailabl e Encounter Details Date Type Department Care Team (Latest Contact Info) Description 07/20/2008 10:10 EST - 07/20/2008 11:59 EST Hospital Encounter [facility] [address] [place] [address] Jean Munoz MD [address] [place] [phone] Discharge Disposition: Auto Discharge Social History [...] EDT Office Visit [facility] [place] [address] [place], [place] [phone] Jean Munoz MD [address] [place] [phone] documented as of this encounter Procedures Procedure Name Priority Date/Time Associated Diagnosis Comments MA MAMMO SCREENING DIGITAL 07/20/2008 10:56 EST documented in this encounter Results * MA MAMMO SCREENING DIGITAL (07/20/2008 10:56 EST) Anatomical Region Laterality Modality Other 07/20/2008 10:5 6 EST Narrative 01/28/2009 8:15 EDT routine Comparison is made to films from 03/09/2006 (bilateral) and films from 01/10/2004. Bilateral Breast Findings: (CAD used to interpret routine digital): There are scattered fibroglandular densities. No significant masses, calcifications or other abnormalities are seen. IMPRESSION: BILATERAL BREASTS - CATEGORY 1 Negative, no evidence of malignancy. Normal interval follow-up is recommended in 12 months. OVERALL ASSESSMENT - NEGATIVE END OF IMPRESSION The patient will be notified of her/his breast imaging results via a lay letter from Radiology. ??Radiology will contact the patient directly regarding any findings which require additional imaging (Category 0) at this time. Procedure Note Shruthi Quinn MD - 01/28/2009 routine Comparison is made to films from 03/09/2006 (bilateral) and films from 01/10/2004. Bilateral Breast Findings: (CAD used to interpret routine digital): There are scattered fibroglandular densities. No significant masses, calcifications or other abnormalities are seen. IMPRESSION: BILATERAL BREASTS - CATEGORY 1 Negative, no evidence of malignancy. Normal interval follow-up is recommended in 12 months. OVERALL ASSESSMENT - NEGATIVE END OF IMPRESSION The patient will be notified of her/his breast imaging results via a lay letter from Radiology. Radiology will contact the patient directly regarding any findings which require additional imaging (Category 0) at this time. Jean Munoz MD IMG MAMMOGRAPHY ORDERABLES documented in this encounter Visit Diagnoses Not on filedocumented in this encounter
--- OUTSIDE RECORDS SUMMARY | 2024-06-10 07:38 | XMS_ITS | Encounter Summary ---
Author Organization [facility] Address [address] [place] [address] Care Team Providers Care Nail Expert Name Role Phone Jean Munoz MD Primary Care Provider Encounter Details Date Type Department Care Team (Late st Contact Info) Description 07/09/2008 Before PRISM Converted Visit (Maple) [facility] - Maple conversion [address] [place] [address] Nahed Quach MD FA MAIL HOUSE STAFF [address] [place], [place] [id number] Social History Tobacco Use Types Packs/Day Years Used Date Smoking Tobacco: Never Assessed Sex and Gender Information Value Date Recorded Sex Assigned at Not on file Gender Identity Female 08/11/2019 16:07 EST Sexual Orientation Not on file documented as of this encounter Procedure Notes * Nahed Quach - 04/04/2009 1000 EDT DIVISION OF PAIN MANAGEMENT PROCEDURE REPORT SERVICE DATE: 07/09/2008 Ho Holt DO SENIOR CONSULTANT: Nahed Quach MD PROCEDURE Bilateral diagnostic medial branch blocks at the C5-C6 level. PREPROCEDURE DIAGNOSIS Axial neck pain with bilateral upper extremity radiculopathy. POSTPROCEDURE DIAGNOSIS Axial neck pain with bilateral upper extremity radiculopathy. INTERVAL HISTORY Ms. Viera is a 47-year-old female who returns to the pain clinic today after having a right-sided C6-C7 transforaminal epidural steroid injection on June 26, 2008. She states that she did not receive any relief whatsoever from this injection. She states that she continues to have her chronic axial neck pain and pain that radiates down her right arm in the distribution of the C6-C7 dermatomal region. She does state also that after having the injection she has noticed that she is now starting to have left-sided arm pain. She states that the pain starts in the left side of her neck, radiates to her left shoulder and down her biceps, stopping at her elbow. She denies any weakness or numbness in her left. She continues to have numbness in the second and third digit of her right hand as well as the dorsal aspect of her hand. She also states that she feels weak in her right upper extremity compared to her left and that she has trouble holding onto things, such as coffee cups, or grasping objects; however, todayshe states that she feels like her neck is much worse than her arm pain. Bon hu says that she would consider 80% of her pain to be in her neck and 20% of the pain being located in her upper extremities. She says that if she could at least get her neck pain taken care of, the arm pain would be tolerable for her. Today she states her pain is a 6/10 on the pain scale. She states that it is constant. It is specifically worse with any type of moving. Specifically, flexion of her neck and right lateral rotation makes it much worse. She does state that her neck pain is bothersome on both sides; however, her right side is somewhat worse than her left. In regard to medications, she takes Vicodin 5/500. She says that she has gotten down to four to sixtabs a day. Previous to the injection she was taking six to eight tabs; however, she states that she is not taking less because of a decrease in her pain relief, rather she feels like she is going tobecome tolerant to them if she keeps taking more during the day. Thus, she has decided to lower herdose. She is also on Valium 5 mg at night for the muscle spasms that she feels in her neck and intoher trapezius. She is also inquiring today about whether or not she could try a muscle relaxant forthe spasms that she has in her neck. RADIOGRAPHIC STUDIES The MRI of her C-spine dated June 09, 2008, does show disk extrusion and disk osteophyte complex at the posterior aspect of C5-C6 and loss of disk space height at C6-C7 with a disk protrusion aswell. There were no cordsignal changes. Axial images revealed a broad-based disk bulge and ostephyte complex at C5-C6 and there is more right central with right neural foraminal narrowing and mild tomoderate left neural foraminal narrowing. At C6-C7, there was a right central disk herniation with effacement of the cord and moderate to severe neural foraminal narrowing on the right. At C5-C6, theeffacement of the cord produces a moderate amount of cord compression, no cord signal changes. ALLERGIES No known drug allergies. CURRENT MEDICATIONS Vicodin, Valium, Celexa, Requip, atenolol, Advair, albuterol inhaler. REVIEW OF SYSTEMS Negative for any infections, fevers, chills, headaches, blurred vision, nausea, vomiting, chest pain, shortness of breath, heart palpitation, dyspnea on exertion, changes to bowel or bladder habits, skin rash or easy bleeding or bruising. She has been NPO for the last eight hours. She does state that she has a tow motor driver here with her today. PHYSICAL EXAMINATION The patient is 5 feet 4 inches tall and weighs 160 pounds. Blood pressure 9971, pulse 64, respirations 16, temperature 97.8. In general, she is a pleasant white female who is awake, alert and oriented times three. She is in no acute distress. She does smell of heavy tobacco smoke. Upon inspection and palpation of her lumbosacral spine, she does have tenderness to palpation over her cervical spineand over her paraspinous musculature, particularly her trapezius muscles bilaterally. She does havelimited range of motion secondary to pain. Extension is diminished by 80%. Forward flexion is to chin and within three fingerbreadths to the chest. Rotation to the right and left is diminished by 50%. Spurling maneuver is negative. Upper extremity strength: Right deltoid is 4/5, right biceps is 3/5, right wrists flexors and extensors are 4/5, external rotators are 4/5. Sensation to soft touch is diminished at the deltoid and at the web space, as well as the dorsal aspect of the second and thirddigits on the right hand. In regard to her left arm, strength is 4/5 at the left deltoid, biceps, wrist flexors and extensors. Sensation is also intact in the left upper extremity. Ileana sign is negative. ASSESSMENT Axial neck pain with bilateral upper extremity radicular pain, right greater than left. PLAN 1. Since she did not receive any benefit from the right-sided C6-C7 transforaminal epidural steroidinjection, we will proceed today with diagnostic cervical medial branch blocks at the C5, C6 and K1tkfrt focusing on her neck pain. We did discuss with her that this would be unlikely to provide herwith any significant pain relief of her upper extremity pain. She verbalized an understanding of this. 2. She was given followup instructions for phone follow up. 3. We willhave her follow up for possible cervical radiofrequency procedure. We did discuss with her today if she did not receive any relief from this, then we could consider doing a midline interlaminar cervical epidural steroid injection. If that does not provide her with any relief, then she will need to return to [facility]. 3. We did give her a prescription for tizanidine 4 mg to take at night, with two refills, for the muscle spasms that she has in her neck as well. PROCEDURE NOTE After informed and written consent was obtained from the patient, the patient was then placed in the left lateral decubitus position. The skin on her cervical spine was prepped with Hibiclens solution and draped in a sterile fashion. Next, the tun[place] anatomy of her cervical spine was identified under fluoroscopic guidance. Using 2% lidocaine, her skin and subcutaneous tissues were anesthetized. Then, under fluoroscopic guidance, a 25-gauge, 2-1/2-inch needle was inserted to the lateral aspect of the right C5, C6 and C7 facet pillar. The periosteum was reached in each case. All aspirations were negative for heme or any CSF. The patient did not experience any paresthesias. Then, 0.4 mL of 0.5% bupivacaine was injected at each level without complication. Next, the patient was changed to the right lateral decubitus position. The right side of her neck was generously prepped and draped in a sterile fashion. The tun[place] anatomy of her cervical spine was identified. The skin and subcutaneous tissues were anesthetized with 2% lidocaine. The exact same procedure was repeated in the exact same manner at the left C5, C6 and C7 region. The patient tolerated the procedure well. Postprocedure vital signs: Blood pressure 85/69, pulse 67, respirations 18. She was discharged in stable condition in the company of a tow motor driver. Of note, Dr. Holt was present for and medically directed all patient care. I was present during the entire procedure. Signed by Ho Holt DO 07/16/2008 15:48 Nahed Quach MD Ho Holt DO - Nahed Quach MD - [facility] Job ID: [id number] Doc ID: [id number] cc: [facility] Carrillo MD documented in this encounter Plan of Treatment Upcoming Encounters Date Type Department Care Team (Late st Contact Info) Description 06/29/2024 14:15 EDT Office Visit [address] [address] Jean Munoz MD [address] [place] [phone] documented as of this encounter Visit Diagnoses Not on filedocumented in this encounter Care Teams Nail Expert Relationship Specialty Start Date End Date Jean Munoz MD [address] [place] [phone] PCP - General 12/31/08 documented as of this encounter
--- OUTSIDE RECORDS SUMMARY | 2024-06-10 07:38 | XMS_ITS | Encounter Summary ---
Author Organization [facility] Address [address] [place] [address] Care Team Providers Care Chief Transfer And Pumphouse Operator Name Role Phone Unavailable Primary Care Provider Unavailabl e Encounter Details Date Type Department Care Team (Latest Contact Info) Description 06/05/2005 10:00 EDT - 06/05/2005 11:59 EDT Hospital Encounter [address] [address] Jean Munoz MD [address] [place] [phone] Discharge Disposition: Auto Discharge Social History [...] 14:15 EDT Office Visit [facility] [address] [place] [address] Jean Munoz MD [address] [place] [phone] documented as of this encounter Visit Diagnoses Not on filedocumented in this encounter
--- OUTSIDE RECORDS SUMMARY | 2024-06-10 07:38 | XMS_ITS | Encounter Summary ---
Author Organization [facility] Address [address] [place] [address] Care Team Providers Care Wire Coating Operator Metal Name Role Phone Unavailable Primary Care Provider Unavailabl e Encounter Details Date Type Department Care Team (Late st Contact Info) Description 03/02/2007 6:39 EDT - 03/02/2007 11:59 EDT Hospital Encounter [facility] [address] [place] [address] Koby Flynn MD [address] [facility], [address] [place] [phone] Discharge Disposition: Home or Self Care Social History Tobacco Use Types Packs/Day Years Used Date Smoking Tobacco: Never Assessed Sex and Gender Information Value Date Recorded Sex Assigned at Not on file Gender Identity Female 08/11/2019 16:07 EST Sexual Orientation Not on file documented as of this encounter Discharge Disposition Disposition Code Departure Means Destination Home or Self Care documented in this encounter OR Notes * OR Surgeon - Koby Flynn MD - 03/02/2007 0000 EDT PROCEDURE REPORT PT TYPE: OPPROC SERVICE DATE: 03/02/2007 SURGEON: Vivian Flynn MD, Kymberly Flynn MD, FACSKoby Flynn MD, FACS POWER WASHER: Ben Alvarado MD PREOPERATIVE DIAGNOSIS Gastroesophageal reflux disease. POSTOPERATIVE DIAGNOSIS Gastroesophageal reflux disease. PROCEDURE Laparoscopic Aspen fundoplication. ANESTHESIA General endotracheal and local. INDICATIONS This is a 46-year-old woman, who had non-forceable regurgitation and heartburn. Prilosec did help the heartburn, but she still ended up having regurgitation daily. She often wakes up at night with regurgitation in her mouth or on her pillow. Because of her reflux, which was refractory to medicationand documented with pH probe testing, she was offered a Aspen fundoplication. FINDINGS No hiatal hernia was seen. A primary closure with an AlloDerm onlay was used to close the diaphragmposterior to the esophagus. There was no leak after testing with methylene blue. A 360 degree fundoplication was performed over a 60-Venezuelan bougiedilator. There was a large left lobe of the liver that made the surgery difficulty. NARRATIVE The patient was taken to the operating room, placed supine on the operating table, and identified as ???Liset Viera.?? I was present for the entire case. After induction of general anesthesia, theabdomen was prepped and draped in the usual sterile fashion. An incision was then made just to the left of midline which was 5-mm long. This was done in the epigastrium. A Veress needle was used to access the peritoneal cavity, which was insufflated to 14 mmHg using carbon dioxide. A 5-mm port was placed in this location, followed by a 5-mm, 0 degree scope which was used to examine the abdomen, which appeared normal. A 5-mm port was placed in the right upper quadrant. There was a large left lobe of the liver. There were some adhesions also, which were of no significance, in the right upper quadrant over the dome of the liver to the abdominal wall. It was difficult to elevate the entire leftlobe of the liver due toits large size, but the liver retractor was repositioned multiple times to allow retraction and visualization. Next, a 5-mm port was placed in the right epigastrium to the left of the falciform ligament. An 11-mm VersaStep trocar was placed in the left subcostal position christina 5-mm port was placed in the left abdomen. The fundus of the stomach was then grasped and retracted medially. The gastrosplenic ligament was retracted laterally. There was significant adipose tissuealong the greater curvature ofthe stomach, but the harmonic scalpel did adequately control the short gastric vessels. The stomach was closely adherent to the spleen at its upper pole. The short gastric vessel was clipped towards the spleen side. The stomach was then completely mobilized along its greater curvature up to the left ming of the diaphragm. The gastrohepatic ligament was then incised up to the right ming of the diaphragm with the harmonic scalpel. The right ming was from the esophagus bluntly. The esophageal phrenic ligament was cut to expose the anterior esophagus. A window was then made posterior to the esophagus, which was then encircled with a Ramsey drain for retraction. The left ming was from the esophagus with a combination of blunt and sharp dissection. The lower esophagus was mobilized in the mediastinum to allow adequate length of the esophagus in the abdomen. It was difficult to get the entire lower third of the esophagus mobilized due to thelarge liver and visceral adipose tissue that was seen. The anterior and posterior vagus nerves were preserved along their course. The OG tube was positioned at the GE junction, instilled with methylene blue, and there was no leakage with blue dye. The diaphragmatic crura were then reapproximated posterior to the esophagus with interrupted 0 Surgidac sutures using the Endostitch device. Of note, the last suture closest to the esophagus caused some tearing of the right ming. Therefore, it was decided to place an AlloDerm patch onlay to reinforce the closure. The left upper quadrant port was replaced with a 12-mm VersaStep trocar. An AlloDerm patch was thencut to size, measuring approximately 5 x 3-cm. It was sutured to the diaphragm at each apex. It wasthen tacked to the diaphragm at its periphery at 1-cm intervals using an Endo [place] stapler, 65degrees. It laid nicely without tension or folding. The stomach was then brought posterior to the esophagus. The OG tube had been removed from the esophagus and a 60-Venezuelan bougie dilator was then passed through the esophagus into the stomach without incident. The Ramsey drain had already been released. With three sutures of 2-0 Surgidac, the fundoplication was created. The total length of the wrap was approximately 2-cm. Each stitch incorporated the esophagus just to the right of midline. Thebougie dilator was removed. The wrap laid nicely without undue tension or twisting of the esophagus. The area in the left upper quadrant was inspected and there did appear to be complete hemostasis. The right upper quadrant was irrigated with saline. The effluent was clear. Surgicel was placed overlying some of the section of the spleen in the left upper quadrant, but again there was no continuous bleeding. The liver retractor was removed. The transfascial suture to retract the omentum was alsoreleased. The pneumoperitoneum was released and all ports were removed. The fascia at each locationwas infiltrated with 0.5% Marcaine. The skin at each location was closed with a subcuticular stitchof 4-0 Monocryl. Steri-Strips and Band-Aids were applied to each incision. Of note, there were two liver injuries from the retractor as well as from the port. Both of these were not bleeding at the end of the surgery. The sponge, needle, and instrument counts were correct at the end of the case. The patient was awoken from anesthesia, extubated, and taken to the recovery room in stable condition. ESTIMATED BLOOD LOSS 100 ml. FLUIDS 2900 ml. DRAINS None. COMPLICATIONS None. Signed by Koby Flynn MD, FACS 03/06/2007 12:25 Vivian Flynn MD, [id number] C Borrazzo, MD, FACS Koby Flynn MD, FACS [phone] - Albin Flynn MD, FACS A - [facility] Job ID: [id number] Document ID: [id number] cc: Koby Flynn MD, FACS MD Jean Chavis MD Doris B Strader, MD documented in this encounter Plan of Treatment Upcoming Encounters Date Type Department Care Team (Late st Contact Info) Description 06/29/2024 14:15 EDT Office Visit [facility] [address] [place], [place] [phone] Jean Munoz MD [address] [place] [phone] documented as of this encounter Visit Diagnoses Not on filedocumented in this encounter
--- OUTSIDE RECORDS SUMMARY | 2024-06-10 07:38 | XMS_ITS | Encounter Summary ---
Author Organization [facility] Address [address] [place] [address] Care Team Providers Care Location Analyst Name Role Phone Unavailable Primary Care Provider Unavailabl e Encounter Details Date Type Department Care Team (Late st Contact Info) Description 06/14/2008 9:43 EDT - 06/14/2008 11:59 EDT Hospital Encounter [facility] [address] [place] [address] Jean Jefferson PA-C [address] [place] [phone] Discharge Disposition: Auto Discharge Social History [...] Visit [facility] [address] [place] [address] Jean Munoz MD [address] [place] [phone] documented as of this encounter Visit Diagnoses Not on filedocumented in this encounter
--- OUTSIDE RECORDS SUMMARY | 2024-06-10 07:38 | XMS_ITS | Encounter Summary ---
Author Organization [facility] Address [address] [place] [address] Care Team Providers Care Forest Worker Name Role Phone Unavailable Primary Care Provider Unavailabl e Encounter Details Date Type Department Care Team (Late st Contact Info) Description 02/22/2007 7:05 EDT - 02/22/2007 11:59 EDT Hospital Encounter [facility] [place] [address] [place] [address] Koby Flynn MD [address] [facility], [address] [place] [phone] Discharge Disposition: Auto Discharge Social History Tobacco [...] Description 06/29/2024 14:15 EDT Office Visit [facility] [address] [place], [place] [phone] Jean Munoz MD [address] [place] [phone] documented as of this encounter Procedures Procedure Name Priority Date/Time Associated Diagnosis Comments NM GASTRIC EMPTYING SCAN 02/22/2007 10:54 EDT documented in this encounter Results * NM GASTRIC EMPTYING SCAN (02/22/2007 10:54 EDT) Anatomical Region Laterality Modality Other 02/22/2007 10:5 4 EDT Narrative 03/13/2009 13:51 EDT esophageal reflux NM Gastric Emptying Scan ??Feb 22, 2007 10:54:56 AM Signs and Symptoms:: ??esophageal reflux Gastric emptying Indication: esophageal reflux Technique: 1.1 mCi Tc-99m Sulfur Colloid tagged with eggs was mixed with beef stew and given with orange juice. ??Images were obtained at 15-minute intervals up to 2 hours in anterior and posterior projections. Percent gastric emptying was calculated using a geometric mean. Findings: Image time (minutes) ?percent emptied 15 minutes ? 0% emptied 30 minutes ? 2% emptied 45 minutes ? 3% emptied 60 minutes ? 7% emptied 90 minutes ?17% emptied 120 minutes ?35% emptied 150 minutes ?51% emptied Impression: Delayed gastric emptying for solid food. I have personally reviewed the images and the above interpretation and agree with the findings. Procedure Note Marquita Bai MD / Gage Reddy MD - 03/13/2009 esophageal reflux NM Gastric Emptying Scan Feb 22, 2007 10:54:56 AM Signs and Symptoms:: esophageal reflux Gastric emptying Indication: esophageal reflux Technique: 1.1 mCi Tc-99m Sulfur Colloid tagged with eggs was mixed with beef stew and given with orange juice. Images were obtained at 15-minute intervals up to 2 hours in anterior and posterior projections. Percent gastric emptying was calculated using a geometric mean. Findings: Image time (minutes) percent emptied 15 minutes 0% emptied 30 minutes 2% emptied 45 minutes 3% emptied 60 minutes 7% emptied 90 minutes 17% emptied 120 minutes 35% emptied 150 minutes 51% emptied Impression: Delayed gastric emptying for solid food. I have personally reviewed the images and the above interpretation and agree with the findings. Koby Flynn MD IMG NM OR DERABLES documented in this encounter Visit Diagnoses Not on filedocumented in this encounter
--- OUTSIDE RECORDS SUMMARY | 2024-06-10 07:38 | XMS_ITS | Encounter Summary ---
Author Organization [facility] Address [address] [place] [address] Care Team Providers Care Consulting Technical Director Name Role Phone Unavailable Primary Care Provider Unavailabl e Encounter Details Date Type Department Care Team (Latest Contact Info) Description 06/22/2008 13:21 EDT Hospital Encounter [facility] [address] [place] [address] Fozia Ojeda MD Discharge Disposition: Auto Discharge Social History Tobacco [...] EDT Office Visit [facility] [address] [place] [address] Jean Munoz MD [address] [place] [phone] documented as of this encounter Visit Diagnoses Not on filedocumented in this encounter
--- OUTSIDE RECORDS SUMMARY | 2024-06-10 07:38 | XMS_ITS | Encounter Summary ---
Author Organization [facility] Address [address] [place] [address] Care Team Providers Care Pediatric Nurse Name Role Phone Unavailable Primary Care Provider Unavailabl e Encounter Details Date Type Department Care Team (Late st Contact Info) Description 06/09/2008 13:07 EDT Hospital Encounter [facility] [id number] [place] [address] Rosita Mayfield MD [address] [place] [phone] Discharge Disposition: Auto Discharge Social History [...] 06/29/2024 14:15 EDT Office Visit [facility] [address] [place] [address] Jean Munoz MD [address] [place] [phone] documented as of this encounter Procedures Procedure Name Priority Date/Time Associated Diagnosis Comments MR CERVICAL SPINE WO CONTRAST 06/09/2008 14:26 EDT documented in this encounter Results * MR CERVICAL SPINE WO CONTRAST (06/09/2008 14:26 EDT) Anatomical Region Laterality Modality Other 06/09/2008 14:2 6 EDT Narrative 01/28/2009 9:11 EDT neck pain with bilateral upper extremtiy numbness MR of the cervical spine without contrast Indication: ??Neck pain with bilateral upper extremity numbness. Technique: ??Sagittal T1 and T2 and transaxial gradient echo images of the cervical spine are obtained without the use of contrast. Comparison: ??No prior similar studies are available for comparison. Findings: ??There is multilevel degenerative disc. Herniated disc material is seen posterior to the C5, C6 and C7 vertebral bodies. Sagittal view demonstrates narrowing of the central canal at this level. The craniovertebral junction and appears normal. Cervical cord signal and caliber are also normal. At C3-C4, no evidence of central canal or neuroforaminal narrowing. At C4-C5, no evidence of central canal or neuroforaminal narrowing. At C5-C6 there is broad based central disc herniation which narrows the canal and flattens the cord. Disc material enters and narrows the neural foramen bilaterally. At C6-C7, there is a right paracentral disc herniation which effaces the ventral thecal sac and flattens the cord. There is foraminal narrowing on the right. At C7-T1, no evidence of canal or foraminal narrowing. Incidental note made of a hemangioma in the T4 vertebral body. Impression: 1. Disc herniations at C5-C6 and C6-C7 levels narrow the central canal and flatten the cord. At C5-C6 disc material narrows the neural foramen bilaterally. At C6-C7 foraminal narrowing is noted on the right. I have personally reviewed the images and the above interpretation and agree with the findings. Procedure Note Anita, Phd Bassam MD / Gabriel Artis MD - 01/28/2009 neck pain with bilateral upper extremtiy numbness MR of the cervical spine without contrast Indication: Neck pain with bilateral upper extremity numbness. Technique: Sagittal T1 and T2 and transaxial gradient echo images of the cervical spine are obtained without the use of contrast. Comparison: No prior similar studies are available for comparison. Findings: There is multilevel degenerative disc. Herniated disc material is seen posterior to the C5, C6 and C7 vertebral bodies. Sagittal view demonstrates narrowing of the central canal at this level. The craniovertebral junction and appears normal. Cervical cord signal and caliber are also normal. At C3-C4, no evidence of central canal or neuroforaminal narrowing. At C4-C5, no evidence of central canal or neuroforaminal narrowing. At C5-C6 there is broad based central disc herniation which narrows the canal and flattens the cord. Disc material enters and narrows the neural foramen bilaterally. At C6-C7, there is a right paracentral disc herniation which effaces the ventral thecal sac and flattens the cord. There is foraminal narrowing on the right. At C7-T1, no evidence of canal or foraminal narrowing. Incidental note made of a hemangioma in the T4 vertebral body. Impression: 1. Disc herniations at C5-C6 and C6-C7 levels narrow the central canal and flatten the cord. At C5-C6 disc material narrows the neural foramen bilaterally. At C6-C7 foraminal narrowing is noted on the right. I have personally reviewed the images and the above interpretation and agree with the findings. Jean Jefferson PA-C [facility] MRI ORDERABLES documented in this encounter Visit Diagnoses Not on filedocumented in this encounter
--- OUTSIDE RECORDS SUMMARY | 2024-06-10 07:38 | XMS_ITS | Encounter Summary ---
Author Organization [facility] Address [address] [place] [address] Care Team Providers Care Sulfonator Operator Name Role Phone Unavailable Primary Care Provider Unavailabl e Encounter Details Date Type Department Care Team (Latest Contact Info) Description 01/06/2006 13:31 EDT Hospital Encounter [facility] [address] [place] [address] Jean Munoz MD [address] [place] [phone] Discharge Disposition: Auto Discharge Social History [...] Visit [facility] [address] [place], [place] [id number] Jean Munoz MD [address] [place] [phone] documented as of this encounter Visit Diagnoses Not on filedocumented in this encounter
--- OUTSIDE RECORDS SUMMARY | 2024-06-10 07:38 | XMS_ITS | Encounter Summary ---
Author Organization [facility] Address [address] [place] [address] Care Team Providers Care Poultry Slaughterer Name Role Phone Unavailable Primary Care Provider Unavailabl e Encounter Details Date Type Department Care Team (Latest Contact Info) Description 02/04/2007 14:46 EDT Hospital Encounter [facility] [address] [place] [address] Jean Munoz MD [address] [place] [phone] Discharge Disposition: Auto Discharge Social History [...] Office Visit [facility] [address] [place], [place] [id number] Jean Munoz MD [address] [place] [phone] documented as of this encounter Visit Diagnoses Not on filedocumented in this encounter
--- OUTSIDE RECORDS SUMMARY | 2024-06-10 07:38 | XMS_ITS | Encounter Summary ---
Author Organization [facility] Address [address] [place] [address] Care Team Providers Care Keno Writer Name Role Phone Unavailable Primary Care Provider Unavailabl e Encounter Details Date Type Department Care Team (Latest Contact Info) Description 12/28/2005 21:03 EDT Hospital Encounter [facility] Emergency Department - [facility] [address] [place], [place] [id number] Emergency, MD Ismael Discharge Disposition: Home or [...] 14:15 EDT Office Visit [facility] [address] [place], [place] [phone] Jean Munoz MD [address] [place] [phone] documented as of this encounter Visit Diagnoses Not on filedocumented in this encounter
--- OUTSIDE RECORDS SUMMARY | 2024-06-10 07:38 | XMS_ITS | Encounter Summary ---
Author Organization [facility] Address [address] [place] [address] Care Team Providers Care Fund Director Name Role Phone Unavailable Primary Care Provider Unavailabl e Encounter Details Date Type Department Care Team (Latest Contact Info) Description 04/07/2006 15:08 EDT Hospital Encounter [facility] [address] [place] [address] Eliza Francis MD [address] [place] [phone] Discharge Disposition: Auto Discharge Social History Tobacco [...] 14:15 EDT Office Visit [facility] [address] [place] [address] Jean Munoz MD [address] [place] [phone] documented as of this encounter Visit Diagnoses Not on filedocumented in this encounter
--- OUTSIDE RECORDS SUMMARY | 2024-06-10 07:38 | XMS_ITS | Encounter Summary ---
Author Organization [facility] Address [address] [place] [address] Care Team Providers Care Sports Management Internship Name Role Phone Unavailable Primary Care Provider Unavailabl e Encounter Details Date Type Department Care Team (Late st Contact Info) Description 01/26/2008 11:00 EDT Hospital Encounter [facility] [address] [place] [address] Jean Munoz MD [address] [place] [phone] Social History Tobacco Use Types Packs/Day [...] EDT Office Visit [facility] [address] [place] [address] Jean Munoz MD [address] [place] [phone] documented as of this encounter Visit Diagnoses Not on filedocumented in this encounter Additional Health Concerns Infection Onset Date Last Indicated Resolved Time R/O COVID-19 05/15/2022 05/15/2022 05/20/2022 22:1 6 EDT R/O COVID-19 11/14/2022 11/14/2022 11/14/2022 19:1 6 EST documented as of this encounter
--- OUTSIDE RECORDS SUMMARY | 2024-06-10 07:38 | XMS_ITS | Encounter Summary ---
Author Organization [facility] Address [address] [place] [address] Care Team Providers Care Buffing Turner And Counter Name Role Phone Jean Munoz MD Primary Care Provider Encounter Details Date Type Department Care Team (Late st Contact Info) Description 02/10/2006 Results Only [facility] conversion [address] [place] [address] Unknown, Provider, Social History Tobacco Use Types Packs/Day Years [...] Hospital Medicine [facility] [address] [place] [address] Jean Munoz MD [address] [place] [phone] documented as of this encounter Procedures Procedure Name Priority Date/Time Associated Diagnosis Comments GLUCOSE, GLUCOMETER Routine 02/10/2006 1 1:57 EDT documented in this encounter Results * GLUCOSE, GLUCOMETER (02/10/2006 11:57 EDT) Glucose, Fingerstick 78 70 - 110 mg/dl [facility] Scaffold Setter ID [id number] Test Performed by Nursing Services [facility] 02/10/2006 11:5 7 EDT 02/10/2006 14:14 EDT Provider Unknown CHEMISTRY & BLOOD GA S ORDERABLES Performing Organization Address City/State/[facility] Co de Phone Number [facility] [address] [place] [address] documented in this encounter Visit Diagnoses Not on filedocumented in this encounter Care Teams Buffing Turner And Counter Relationship Specialty Start Date End Date Jean Munoz MD [address] [place] [phone] PCP - General 12/31/08 documented as of this encounter
--- OUTSIDE RECORDS SUMMARY | 2024-06-10 07:38 | XMS_ITS | Encounter Summary ---
Author Organization [facility] Address [address] [place] [address] Care Team Providers Care Sharepoint Solutions Architect Name Role Phone Unavailable Primary Care Provider Unavailabl e Encounter Details Date Type Department Care Team (Latest Contact Info) Description 05/18/2008 14:18 EDT Hospital Encounter [facility] [address] [place] [address] Fozia Ojeda MD Discharge Disposition: Auto Discharge [...] EDT Office Visit [facility] [address] [place] [address] Jean Muonz MD [address] [place] [phone] documented as of this encounter Visit Diagnoses Not on filedocumented in this encounter
--- OUTSIDE RECORDS SUMMARY | 2024-06-10 07:38 | XMS_ITS | Encounter Summary ---
Author Organization [facility] Address [address] [place] [address] Care Team Providers Care Cleaning Laborer Name Role Phone Unavailable Primary Care Provider Unavailabl e Encounter Details Date Type Department Care Team (Latest Contact Info) Description 03/09/2006 15:34 EDT Hospital Encounter [facility] [address] [place] [address] Jean Munoz MD [address] [place] [phone] Discharge Disposition: Auto Discharge Social History [...] Office Visit [facility] 3 [place] [address] Jean Munoz MD [address] [place] [phone] documented as of this encounter Procedures Procedure Name Priority Date/Time Associated Diagnosis Comments MA MAMMO SCREENING DIGITAL 03/09/2006 15:57 EDT documented in this encounter Results * MA MAMMO SCREENING DIGITAL (03/09/2006 15:57 EDT) Anatomical Region Laterality Modality Other 03/09/2006 15:5 7 EDT Narrative 03/30/2009 11:09 EDT ROUTINE Comparison is made to films from 01/10/2004 and films from 07/25/2001 and films from 05/26/2000. Bilateral Breast Findings: (CAD used to interpret routine digital): There are scattered fibroglandular densities. ??No significant masses, calcifications or other abnormalities are seen. IMPRESSION: BILATERAL BREASTS - CATEGORY 1 Negative, no evidence of malignancy. Normal interval follow-up is recommended in 12 months. OVERALL ASSESSMENT - NEGATIVE END OF IMPRESSION Procedure Note Shruthi Quinn MD - 03/30/2009 ROUTINE Comparison is made to films from 01/10/2004 and films from 07/25/2001 and films from 05/26/2000. Bilateral Breast Findings: (CAD used to interpret routine digital): There are scattered fibroglandular densities. No significant masses, calcifications or other abnormalities are seen. IMPRESSION: BILATERAL BREASTS - CATEGORY 1 Negative, no evidence of malignancy. Normal interval follow-up is recommended in 12 months. OVERALL ASSESSMENT - NEGATIVE END OF IMPRESSION Jean Munoz MD IMG MAMMOGRAPHY ORDERABLES documented in this encounter Visit Diagnoses Not on filedocumented in this encounter
--- OUTSIDE RECORDS SUMMARY | 2024-06-10 07:38 | XMS_ITS | Encounter Summary ---
Author Organization [facility] Address [address] [place] [address] Care Team Providers Care Test Rider Name Role Phone Unavailable Primary Care Provider Unavailabl e Encounter Details Date Type Department Care Team (Latest Contact Info) Description 02/25/2006 8:09 EDT - 02/25/2006 11:59 EDT Hospital Encounter [facility] [address] [place] [address] Jean Munoz MD [address] [place] [phone] Discharge Disposition: Auto Discharge Social History [...] Info) Description 06/29/2024 14:15 EDT Office Visit [facility] [place] [address] [place] [address] Jean Munoz MD [address] [place] [phone] documented as of this encounter Visit Diagnoses Not on filedocumented in this encounter
--- OUTSIDE RECORDS SUMMARY | 2024-06-10 07:38 | XMS_ITS | Encounter Summary ---
Author Organization [facility] Address [address] [place] [address] Care Team Providers Care Dominatrix Name Role Phone Jean Munoz MD Primary Care Provider Encounter Details Date Type Department Care Team (Late st Contact Info) Description 02/17/2007 Before [facility] Converted Visit [facility] [address] [place] [address] Afshan Ramey MD [address] [facility] [address] [place] [phone] Social History Tobacco Use Types Packs/Day Years Used Date Smoking Tobacco: Never Assessed Sex and Gender Information Value Date Recorded Sex Assigned at Not on file Gender Identity Female 08/11/2019 16:07 EST Sexual Orientation Not on file documented as of this encounter Progress Notes * Afshan Ramey MD - 07/21/20092042 EST DIVISION OF GASTROENTEROLOGY PROGRESS/FOLLOWUP NOTE - 02/17/2007 Ms. Viera is a 46-year-old woman with seasonal allergies and arthritis who has gastroesophageal reflux disease unresponsive to antireflux measures and b.i.d. PPIs. I last saw her on December 30, 2006, where she continued to report midepigastric pain and discomfort, as well as water brash and some mild regurgitation, despite b.i.d. PPI. As a result, I scheduled herfor pH and manometry studies. Sheunderwent esophageal manometry on January 24, 2007. Results of the study were within normal limits. Zachery had the pH study performed. DeMeester scores on day one were 31.6 and on day two 22.3. The patient did report some symptoms during the day while having the study performed. She presents to clinic today reporting continued mild relief of heartburn with Protonix but a significant water brash andregurgitation. As a result of the above-mentioned findings, I think it is prudent to schedule Ms. Viera to see Dr. Abiodun Flynn in clinic for discussion of fundoplication. I explained to Ms. Viera that fundoplication is a procedure that can be done laparoscopically to tighten the lower esophageal sphincter preventing acid reflux. In appropriate patients, this procedure can be effective and 80% of patients may no longer require medications or experience pain. Ms. Viera is interested in proceeding, and therefore we will schedule her for an appointment with Dr. Flynn as soon as possible. IMPRESSION Reflux disease, refractory to proton pump inhibitors and antireflux measures, with positive pH study. PLAN 1. Continue current proton pump inhibitors and antireflux measures. 2. Follow up with Dr. Flynn for discussion of fundoplication as soon as possible. Signed by Afshan Ramey MD 02/24/2007 09:13 Reece Ramey [phone] Ramey MD Afshan Ramey MD [phone] - Afshan Ramey MD - Job ID: [id number] Doc ID: [id number] cc: Jean Munoz MD documented in this encounter Plan of Treatment Upcoming Encounters Date Type Department Care Team (Late st Contact Info) Description 06/29/2024 14:15 EDT Office Visit [facility] [address] [place] [address] Jean Munoz MD [address] [place] [phone] documented as of this encounter Visit Diagnoses Not on filedocumented in this encounter Care Teams Dominatrix Relationship Specialty Start Date End Date Jean Munoz MD [address] [place] [phone] PCP - General 12/31/08 documented as of this encounter
--- OUTSIDE RECORDS SUMMARY | 2024-06-10 07:38 | XMS_ITS | Encounter Summary ---
Author Organization [facility] Address [address] [place] [address] Care Team Providers Care Transfill Technician Name Role Phone Unavailable Primary Care Provider Unavailabl e Encounter Details Date Type Department Care Team (Latest Contact Info) Description 07/31/2008 12:59 EST Hospital Encounter [facility] [address] [place] [address] Jean Munoz MD [address] [place] [phone] Discharge Disposition: Auto Discharge Social History [...] EDT Office Visit [facility] [address] [place] [address] Jean Munoz MD [address] [place] [phone] documented as of this encounter Visit Diagnoses Not on filedocumented in this encounter
--- OUTSIDE RECORDS SUMMARY | 2024-06-10 07:38 | XMS_ITS | Encounter Summary ---
Author Organization [facility] Address [address] [place] [address] Care Team Providers Care Label Sewer Name Role Phone Unavailable Primary Care Provider Unavailabl e Encounter Details Date Type Department Care Team (Late st Contact Info) Description 07/18/2007 12:27 [facility] Hospital Encounter [facility] [address] [place] [address] Jean Munoz MD [address] [place] [phone] Social History Tobacco Use Types Packs/Day [...] Office Visit [facility] 3 [place] [address] Jean Munoz MD [address] [place] [phone] documented as of this encounter Visit Diagnoses Not on filedocumented in this encounter Additional Health Concerns Infection Onset Date Last Indicated Resolved Time R/O COVID-19 05/15/2022 05/15/2022 05/20/2022 22:1 6 EDT R/O COVID-19 11/14/2022 11/14/2022 11/14/2022 19:1 6 EST documented as of this encounter
--- OUTSIDE RECORDS SUMMARY | 2024-06-10 07:38 | XMS_ITS | Encounter Summary ---
Author Organization [facility] Address [address] [place] [address] Care Team Providers Care Special Agent In Charge Name Role Phone Unavailable Primary Care Provider Unavailabl e Encounter Details Date Type Department Care Team (Latest Contact Info) Description 06/07/2008 11:04 EDT - 06/07/2008 11:59 EDT Hospital Encounter [facility] [address] [place] [address] Jean Munoz MD [address] [place] [phone] Discharge Disposition: Auto Discharge Social History [...] Info) Description 06/29/2024 14:15 EDT Office Visit [facility] Family [facility] 3 [place] [address] Jean Munoz MD [address] [place] [phone] documented as of this encounter Visit Diagnoses Not on filedocumented in this encounter
--- OUTSIDE RECORDS SUMMARY | 2024-06-10 07:38 | XMS_ITS | Encounter Summary ---
Author Organization [facility] Address [address] [place] [address] Care Team Providers Care Aging Department Supervisor Name Role Phone Jean Munoz MD Primary Care Provider Encounter Details Date Type Department Care Team (Late st Contact Info) Description 06/14/2008 Before PRISM Converted Visit (Maple) [facility] - [facility] conversion [address] [place] [address] Jean Jefferson PA-C [address] [place] [address] [place] [address] Social History Tobacco Use Types Packs/Day Years Used Date Smoking Tobacco: Never Assessed Sex and Gender Information Value Date Recorded Sex Assigned at Not on file Gender Identity Female 08/11/2019 16:07 EST Sexual Orientation Not on file documented as of this encounter Progress Notes * Jean Jefferson MD - 04/06/2009 1349 EDT [facility] ([facility] [address] [place] [phone] PROGRESS/FOLLOWUP NOTE - 06/14/2008 Primary Care Provider: Jean Munoz MD Referred by: Jean Munoz MD Attending: HIRAM White is a 47-year-old female last seen in our office on April 06, 2008 with primarily neck pain. Since our last visit she was walking at homeon a deck, her left foot broke through the deck, she fell onto her buttocks straddling a railing with her right foot down the stairs and her shouldersslammed into the railing. Since that time she has had increased neck discomfort with associated bilateral upper extremity radicular symptoms, right greater than left, to the deltoid, dorsum of the forearm, into the hand including the webspace between the 2nd and 3rd fingers. Since this onset, her left upper extremity symptoms have improved and she is leftprimarily with right upper extremity symptoms. Currently she states her neck comprises of 60% of her discomfort, 40% arm; they are both constant. The discomfort is exacerbated by lifting, turning her head, and anything, while it is alleviatedmildly withheat and medication. She admits to difficulty crocheting. She does not have as much control with her right hand. She has difficulty picking up coins. She feels her balance has been off as well. She actually fell two days ago. She feels that when sheturns quickly to one side or another she can feel a bit unsteady and this has been present since her fall. She denies loss of control of her bladder/bowels. She has seen a physical therapist twice a week, but that does not seem to be improving her symptoms. Currently she states her pain level is 6, at best a 4, and at worst a 9 on a scale of 1-10. OBJECTIVE He gait is normal. Romberg is negative. Tandem walking is normal. No area of focal palpable tenderness of the C-spine. Range of motion: Extension is diminished by 80%, forward flexion is chin to within three fingerbreadths of the chest, rotation to the right and left is diminished by 50%. Spurlingmaneuver is negative. Upper extremity strength: Right deltoid is 4/5, right biceps 4+/5, right wrist flexors/extensors 4+/5, external rotators 4/5. Sensation to soft touch is diminished at the deltoid and at the webspace of the right hand and middle finger. Hoffmannsign is negative. Radial pulse is 2+. RADIOGRAPHS MRI of the C-spine dated June 09, 2008: T2-weighted sagittal images reveal disk extrusion and disk osteophyte complex at the posterior aspect of C5-6 and loss of disk space height at C6-7 with adisk protrusion as well. No cord signal changes. Axial images reveal a broad based disk bulge and osteophyte complex at C5-6 that is more right central with right neural foraminal narrowing and mild t o moderate left neural foraminal narrowing. At C6-7 there is a right central disk herniation with effacement of the cord and moderate to severe neural foraminal narrowing on the right. At C5-6, the effacement of the cord produces a moderate amount of cord compression, no cord signal changes. ASSESSMENT This is a 47-year-old female with neck pain and bilateral upper extremity symptoms with persistent right upper extremity symptoms in the C6-7 distribution, concordant with her MRI. The patient also has some balance issues and has been falling, which is unusual for her. She has some dexterity issues with the right hand as well. Shedoes not present with clear signs of neurogenic claudication. I think she has a very mild case of central cord syndrome, even though the MRI does not reveal any cord signal changes. At this point she would like to remain conservative in her treatment and I agree. PLAN 1. I think we can start with neuroleptics and address her balance issues with that and numbness of the right upper extremity and titrate her dose up to symptomatic relief. 2. If she does not find satisfactory relief, we can consider a transforaminal epidural steroid injection at C6-7 on the left with a 70% chance of alleviating her symptoms, 30% chance of no change at all, and 1-2% chance of increasing her pain. 3. If her symptoms return, we can consider a second injection versus C5-6 injection on the left. 4. If her symptoms have not satisfactorily improved post injection, we can consider a surgical consult to discuss any surgical intervention that may be helpful in alleviating her pain. 5. Follow up with me in six weeks. Thank you for allowing the [facility] to participate in the care of your patient. I look forward to working with you in the near future. Signed by HIRAM Carrillo 06/20/2008 12:20 HIRAM Carrillo - HIRAM Carrillo - GERSON Job ID: [id number] Doc ID: [id number] cc: Jean Munoz MD Ms. Liset Viera, [address] [place] [address]* documented in this encounter Plan of Treatment Upcoming Encounters Date Type Department Care Team ([facility] st Contact Info) Description 06/29/2024 14:15 EDT Office Visit [facility] [address] [place] [address] Jean Munoz MD [address] [place] [address] documented as of this encounter Visit Diagnoses Not on filedocumented in this encounter Care Teams Aging Department Supervisor Relationship Specialty Start Date End Date Jean Munoz MD [address] [place] [phone] PCP - General 12/31/08 documented as of this encounter
--- OUTSIDE RECORDS SUMMARY | 2024-06-10 07:38 | XMS_ITS | Encounter Summary ---
Author Organization [facility] Address [address] [place] [address] Care Team Providers Care Product Marketing Engineer Name Role Phone Unavailable Primary Care Provider Unavailabl e Encounter Details Date Type Department Care Team (Latest Contact Info) Description 02/21/2007 12:48 EDT [place] [facility] [address] [place] [address] Jean Munoz MD [address] [place] [phone] Discharge Disposition: Auto Discharge Social History [...] Office Visit [facility] [address] [place], [place] [id number] Jean Munoz MD [address] [place] [address] documented as of this encounter Visit Diagnoses Not on filedocumented in this encounter
--- OUTSIDE RECORDS SUMMARY | 2024-06-10 07:38 | XMS_ITS | Encounter Summary ---
Author Organization [facility] Address [address] [place] [address] Care Team Providers Care Jewelry Dipper Name Role Phone Jean Munoz MD Primary Care Provider Encounter Details Date Type Department Care Team (Late st Contact Info) Description 12/28/2005 Office Visit [facility] [address] [place] [address] Jung Mcallister, PA-C [address] [place] [address] Social History Tobacco Use Types Packs/Day Years Used Date Smoking Tobacco: Never Assessed Sex and Gender Information Value Date Recorded Sex Assigned at Not on file Gender Identity Female 08/11/2019 16:07 EST Sexual Orientation Not on file documented as of this encounter Progress Notes * Jung Mcallister MD - 11/06/20092007 EST Department - Physician Summary Registration Date/Time: 12/28/2005 21:03 Time Seen; upon arrival. Arrived- By private vehicle. Historian - patient. HISTORY OF PRESENT ILLNESS Chief Complaint: HEADACHE. This started today. It has been constant. Onset during light activity. Is still present. It is described as pain. Located in the occipital region. No neck pain. Not located in the facial region. At its maximum, severity described as 10 / 10. When seen in the E.D., severity described as 10 / 10. She has had nausea and vomiting. No preceding symptoms, blurred vision, photophobia, numbness or weakness. (has chronic LBP, bilat hip pain, migraines. Precipitated by N/V today?). The patient has had similar symptoms previously. These are chronic. Not recently seen/assessed. REVIEW OF SYSTEMS No fever, muscle aches, sinus pressure, ear pain or sore throat. No carbon monoxide exposure, tick bite, head injury, chest pain or difficulty breathing. No cough, abdominal pain, diarrhea, pain withurination or skin rash. No enlarged lymph nodes or back pain. PAST HISTORY History of chronic headaches. LBP, hip pain. Medications: See nurses notes. Vicodin #20/month per PCP. Allergies: See nurses notes. ADDITIONAL NOTES The nursingnotes have been reviewed. PHYSICAL EXAM Appearance: Alert. Appears to be in pain. Vital Signs:Have been reviewed - Eyes: Photophobia present. Pupils equal, round and reactive to light. Eyes normal inspection. ENT: Ears normal. Nose normal. Pharynx normal. Neck: Normal inspection. Neck supple. CVS: Normal heart rate and rhythm. Heart sounds normal. Pulses normal. Respiratory: No respiratory distress. Breath sounds normal. Back: Normal inspection. Skin: Normal skin color. Skin warm. No rash. Extremities: Extremities exhibit normal ROM. No lower extremity edema. Neuro: Oriented X 3. Alert. Mood/affect normal. Speech normal. Cranial nerves normal (as tested). No cerebellar findings. No motor deficit. No sensory deficit. Reflexes normal. PROGRESS AND PROCEDURES E.D. Course: 22:34 . Evaluation after IV analgesia and IV antiemetic. Symptoms better. 22:53. ED care transferred to Rachel Dimas PA-C. ED Attending on duty and available for supervision: Cindy Nelson. Disposition: Discharged home in good condition. Discharged home in good condition. CLINICAL IMPRESSION Migraine headache . INSTRUCTIONS Warnings: GENERAL WARNINGS: Return or contact your physician immediately if your condition worsens or changesunexpectedly, if not improving as expected, or if other problems arise. Specifically return if pain, vomiting or fever greater than 102 degrees F worsens. OTC Medications: Motrin (available over the counter): take according to label instructions. Follow-up: Follow up with your doctor even if well. Next available appointment. (Electronically signed by Jung Mcallister, 12/31/2005 13:02) Department - Nursing Summary Registration Date/Time: 12/28/2005 21:03 TRIAGE Initial Assessment Triage time 21:05 . Acuity: LEVEL 4. BP: 100 / 64. HR: 74. RR: 14. Temp: 36 C (tympanic). O2 saturation: 100%. --2107 Nan Curiel R.N. Medications ( celexa neproxen).--2107 Nan Curiel R.N. Allergies ( codeine). --2107 Nan Curile R.N. History Chief Complaint: ( back pain abd pain). This started today. Pain level now: 10/10. Treatment SENIOR MECHANICAL PROJECT MANAGER: None. PAST HX: ( mri may have hernation of disc). SOCIAL HX: Cigarette smoker: 1 pack per day. Occasional alcohol use. Arrived by private vehicle. --2107 Nan Curiel R.N. NURSING PROGRESS NOTES Progress ( PA in with pt.). --2128 Odilia Olivo R.N. ( IV attempt with 22g in right AC without success, will have another nurse attempt another site). Patient reports current pain level as 10/10. The patient reports headache that is severe and associated with nausea. --2146 Tu Nguyen Nurse ( All care performed by SN supervised by me.). --2201 Odilia Olivo R.N. COMPAZINE 10 mg diluted with IV fluid slow IVP over 2 minutes. IV patency established. IV site checked: no pain, redness, or swelling. IV flushed thoroughly pre- and post-medication administration. Sedative drug warning given to the patient and family. KETOROLAC 15 mg diluted with IV fluid slow IVP over 2 minutes. IV patency established. IV site checked: no pain, redness, or swelling. IV flushed thoroughly pre- and post-medication administration. . --2205 Adrienne Jurado Student Nurse HR: 80. RR: 18. O2 saturation: 98% room air. The patient is calm and resting quietly. Patient reports current pain level as 7/10. Overall patient status is improved - the patient states feels better.( Will discharge after IVF are finished). --2236 Adrienne Jurado Student Nurse BP: 106 / 63 lying L arm auto (reg adult cuff). HR: 84. RR: 16 (regular, unlabored and normal). O2 saturation: 99% room air. Patient reports current pain level as 6/10. Overall patient status is improved - the patient states feels better. Denies nausea. Skin is warm and dry. Skin color within normal limits. --2254 Tu Nguyen Nurse Reassessment after medication administered. Patient reports current pain level as 4/10. Overall patient status - the patient states feels better. --2344 Candy Arizmendi R.N. IV / I&O Flowsheet IV site #1: location right antecubital space. Started: 22g angiocath; aseptic technique used; good blood return noted. Saline lock in place. IV patent. No redness or swelling at site. IV line accessed - flushed with saline. --2201 Odilia Olivo R.N. IV fluid started - #1 bag NS 1000 mL. Rate - wide open. --2205 Tu Nguyen Nurse IV fluid bag #1 discontinued. Discontinued IV fluid - 1000 mL (mL absorbed). --2325 Gina Wahl R.N. DISPOSITION / DISCHARGE BP: 101 / 67. HR: 83. RR: 18. O2 saturation: 99% room air. Patient reports pain level on departure as 4/10. Condition at departure: improved and stable. Fall risk assessment completed. No fall risk identified. No learning barriers present. Discharge instructions reviewed with the patient. Patient verbalized understanding. Written instructions provided in Senegalese. The patient was discharged home and accompanied by family. The patient left the Emergency Department ambulatory. --2344 Mayra Fitzgerald R.N., R.N. Rebecca Bangs Student Nurse Mayra Cason R.N. Locked/Released at 12/28/2005 23:46 by Candy Arizmendi R.N. documented in this encounter Plan of Treatment Upcoming Encounters Date Type Department Care Team (Late st Contact Info) Description 06/29/2024 14:15 EDT Office Visit [facility] [address] [place] [address] Jean Munoz MD [address] [place] [address] documented as of this encounter Visit Diagnoses Not on filedocumented in this encounter Care Teams Jewelry Dipper Relationship Specialty Start Date End Date Jean Munoz MD [address] [place] [phone] PCP - General 12/31/08 documented as of this encounter
--- OUTSIDE RECORDS SUMMARY | 2024-06-10 07:38 | XMS_ITS | Encounter Summary ---
Author Organization [facility] Address [address] [place] [address] Care Team Providers Care Steam Train Driver Name Role Phone Unavailable Primary Care Provider Unavailabl e Encounter Details Date Type Department Care Team (Late st Contact Info) Description 02/09/2006 13:55 EDT Hospital Encounter [facility] [address] [place] [address] Jean Munoz MD [address] [place] [phone] Social History Tobacco Use Types Packs/Day [...] or slept in a assisted (including now)? Yes 07/15/2023 Interpersonal Safety Answer [...] 14:15 EDT Office Visit [facility] [address] [place] [address] Jean Munoz MD [address] [place] [address] documented as of this encounter Procedures Procedure Name Priority Date/Time Associated Diagnosis Comments HEMOGLOBIN A1C Routine 02/09/2006 14:33 EDT LIPID PROFILE (INCLUDES CHOLESTEROL, TRIGLYCERIDES, HDL, LDL) Routine 02/09/2006 14:33 EDT documented in this encounter Results * LIPID PROFILE (INCLUDES CHOLESTEROL, TRIGLYCERIDES, HDL, LDL) (02/09/2006 14:33 EDT) Cholesterol 167 mg/dl [facility] Comment: Desirable:<200 Borderline:200-239 High Risk:>gm=150 Triglycerides 120 35 - 160 mg/dl [facility] HDL 46 mg/dl [facility] Comment: Highly Desirable:>60 Desirable:35-60 High Risk:<35 LDL, Calculated 97 mg/dl [facility] Comment: Desirable:<130 Borderline:130-159 High Risk:>ao=854 Chol/HDL Ratio 3.[address] [facility] Fasting? No [facility] 02/09/2006 14:3 3 EDT 02/09/2006 17:07 EDT Alesha Burgess MD CHEMISTRY & BLOOD GA S ORDERABLES Performing Organization Address [facility] de Phone Number [facility] [address] [place] [address] * HEMOGLOBIN A1C (02/09/2006 14:33 EDT) Hemoglobin A1C 5.5 % [facility] Comment: Reference Range: <6% Normal Range <7% Recommended goal by ADA guidelines 7-8% Suboptimal by ADA guidelines >8% Further action suggested by ADA guidelines 02/09/2006 14:3 3 EDT 02/09/2006 17:07 EDT Alesha Burgess MD CHEMISTRY & BLOOD GA S ORDERABLES Performing Organization Address [facility] Co de Phone Number [facility] [address] [place] [address] documented in this encounter Visit Diagnoses Not on filedocumented in this encounter Additional Health Concerns Infection Onset Date Last Indicated Resolved Time R/O COVID-19 05/15/2022 05/15/2022 05/20/2022 22:1 6 EDT R/O COVID-19 11/14/2022 11/14/2022 11/14/2022 19:1 6 EST documented as of this encounter
--- OUTSIDE RECORDS SUMMARY | 2024-06-10 07:38 | XMS_ITS | Encounter Summary ---
Author Organization [facility] Address [address] [place] [address] Care Team Providers Care Electric Trucker Name Role Phone Unavailable Primary Care Provider Unavailabl e Encounter Details Date Type Department Care Team (Late st Contact Info) Description 07/09/2008 11:13 EDT - 07/09/2008 11:59 EDT Hospital Encounter [facility] [address] [place] [address] Ho Holt, DO [address] [facility] [address] [place] [address] aNhed Quach MD FA MAIL HOUSE STAFF [address] [place], [place] [address] Discharge Disposition: Auto Discharge Social History Tobacco [...] Description 06/29/2024 14:15 EDT Office Visit [address] [phone] Jean Munoz MD [address] [place] [phone] documented as of this encounter Visit Diagnoses Not on filedocumented in this encounter
--- OUTSIDE RECORDS SUMMARY | 2024-06-10 07:38 | XMS_ITS | Encounter Summary ---
Author Organization [facility] Address [address] [place] [address] Care Team Providers Care Heater Furnace Name Role Phone Unavailable Primary Care Provider Unavailabl e Encounter Details Date Type Department Care Team (Latest Contact Info) Description 09/16/2006 11:15 EST - 09/16/2006 11:59 EST Hospital Encounter [facility] [address] [place] [address] Jean Munoz MD [address] [place] [phone] Discharge Disposition: Auto Discharge Social History [...] Info) Description 06/29/2024 14:15 EDT Office Visit [facility] [address] [place] [address] Jean Munoz MD [address] [place] [address] documented as of this encounter Procedures Procedure Name Priority Date/Time Associated Diagnosis Comments THYROID CASCADE Routine 09/16/2006 12:44 EST COMPLETE BLOOD COUNT Routine 09/16/2006 12:44 EST FSH Routine 09/16/2006 12:44 EST COMPREHENSIVE METABOLIC PANEL (CMP) Routine 09/16/2006 12:44 EST documented in this encounter Results * THYROID CASCADE (09/16/2006 12:44 EST) TSH 2.59 0.35 - 5.00 uIU/mL [facility] Comment: TSH cascade is not recommended for patients in which pituitary or hypothalamic disorders are suspected. 09/16/2006 12:4 4 EST 09/16/2006 17:01 EST Jean Munoz MD CHEMISTRY & BLO OD GAS ORDERABLES Performing Organization Address [facility] Co de Phone Number [facility] [address] [place] [address] * FSH (09/16/2006 12:44 EST) FSH 11.0 mIU/ml [facility] Comment: Follicular: 2-11 Mid-Cycle Peak: 3.4-35 Luteal: 1-9 Postmenopausal: 25-120 09/16/2006 12:4 4 EST 09/16/2006 17:01 EST Jean Munoz MD CHEMISTRY & BLO OD GAS ORDERABLES Performing Organization Address [facility] Co de Phone Number [facility] [address] [place] [address] * (ABNORMAL) COMPREHENSIVE METABOLIC PANEL (09/16/2006 12:44 EST) Potassium 3.9 3.5 - 5.0 mEq/L [facility] Sodium 141 136 - 145 mEq/L [facility] Chloride 108 96 - 110 mEq/L [facility] CO2 25 24 - 32 mEq/L [facility] Total Alkaline Phosphatase 103 38 - 126 U/L [facility] Bilirubin, Total <0.5 0.2 - 1.3 mg/dl [facility] AST 21 15 - 46 U/L [facility] ALT 39 9 - 52 U/L [facility] Albumin 4.1 3.4 - 4.9 g/dl [facility] Total Protein 7.4 6.5 - 8.3 g/dl [facility] Creatinine 0.77 0.7 - 1.5 mg/dl [facility] GFR, Calculated >60 ml/min/1.7 3m2 [facility] BUN 9(L) 10 - 26 mg/dl [facility] Calcium 9.3 8.5 - 10.5 mg/dl [facility] Calculated Calcium 9.6 8.5 - 10.5 mg/dl [facility] Glucose, Serum 94 70 - 100 mg/dl [facility] Fasting? No [facility] Albumin/Globulin Ratio 1.2 [facility] 09/16/2006 12:4 4 EST 09/16/2006 17:01 EST Jean Munoz MD CHEMISTRY & BLO OD GAS ORDERABLES Performing Organization Address City/State/[facility] Co de Phone Number [facility] [address] [place] [address] * (ABNORMAL) HEMAGRAM (09/16/2006 12:44 EST) WBC 7.23 4.0 - 12.4 K/cmm [facility] RBC 4.21 3.86 - 5.04 M/cmm [facility] Hemoglobin 13.8 11.6 - 15.2 gm/dl [facility] HCT 40.8 34.9 - 44.4 % [facility] MCV 97 81 - 98 fl [facility] MCH 32.8 26.7 - 33.3 pg [facility] MCHC 33.9 32.1 - 35.9 gm/dl [facility] PLT 382(H) 141 - 320 K/cmm [facility] RDW-CV 13.8 11.7 - 14.6 % [facility] 09/16/2006 12:4 4 EST 09/16/2006 17:01 EST Jean Munoz MD HEMATOLOGY & PF 4 ORDERABLES Performing Organization Address City/State/[facility] Co de Phone Number [facility] [address] [place] [address] documented in this encounter Visit Diagnoses Not on filedocumented in this encounter
--- OUTSIDE RECORDS SUMMARY | 2024-06-10 07:38 | XMS_ITS | Encounter Summary ---
Author Organization [facility] Address [address] [place] [address] Care Team Providers Care Web Designer Developer Name Role Phone Unavailable Primary Care Provider Unavailabl e Encounter Details Date Type Department Care Team (Late st Contact Info) Description 07/25/2008 13:22 EST Hospital Encounter [facility] [place] [facility] [address] [place] [address] Jean Jefferson PA-C [address] [place] [phone] Social History Tobacco Use Types Packs/Day [...] Visit [facility] [address] [place] [address] Jean Munoz MD [address] [place] [phone] documented as of this encounter Visit Diagnoses Not on filedocumented in this encounter Additional Health Concerns Infection Onset Date Last Indicated Resolved Time R/O COVID-19 05/15/2022 05/15/2022 05/20/2022 22:1 6 EDT R/O COVID-19 11/14/2022 11/14/2022 11/14/2022 19:1 6 EST documented as of this encounter
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
--- OUTSIDE RECORDS SUMMARY | 2024-06-10 07:38 | XMS_ITS | Encounter Summary ---
Author Organization [facility] Address [address] [place] [address] Care Team Providers Care Telecommunications Manager Name Role Phone Unavailable Primary Care Provider Unavailabl e Encounter Details Date Type Department Care Team (Latest Contact Info) Description 07/23/2008 8:22 EST - 07/23/2008 11:59 EST Hospital Encounter [address] [address] Jean Munoz MD [address] [place] [phone] Discharge Disposition: Auto Discharge Social History [...] Info) Description 06/29/2024 14:15 EDT Office Visit [facility] [address] [place] [address] Jean Munoz MD [address] [place] [phone] (work) documented as of this encounter Procedures Procedure Name Priority Date/Time Associated Diagnosis Comments RAD US ABDOMEN COMPLETE 07/23/2008 9:22 EST documented in this encounter Results * RAD US ABDOMEN COMPLETE (07/23/2008 9:22 EST) Anatomical Region Laterality Modality Other 07/23/2008 9:22 EST Narrative 01/28/2009 8:28 EDT abdominal pain worse after meals, diffuse Abdominal ultrasound 07/23/2008 History: Diffuse abdominal pain, worse after meals Comparison: 06/05/2005 The liver is enlarged measuring 18.6 cm in length. There is diffuse fatty infiltration of the liver, no focal liver lesion is seen. The spleen is normal in size and appearance measuring 10.1 x 9.2 x 3.8 cm. The pancreas and both kidneys are sonographically normal. The gallbladder appears normal and there is no biliary ductal dilatation, the common duct is normal measuring 3 mm. The aorta and IVC are within normal limits. The urinary bladder was empty during the exam and therefore difficult to evaluate. There is no free fluid in the abdomen or pelvis. Impression: Enlarged, fatty liver, otherwise normal exam Procedure Note Tiburcio Sidhu MD - 01/28/2009 abdominal pain worse after meals, diffuse Abdominal ultrasound 07/23/2008 History: Diffuse abdominal pain, worse after meals Comparison: 06/05/2005 The liver is enlarged measuring 18.6 cm in length. There is diffuse fatty infiltration of the liver, no focal liver lesion is seen. The spleen is normal in size and appearance measuring 10.1 x 9.2 x 3.8 cm. The pancreas and both kidneys are sonographically normal. The gallbladder appears normal and there is no biliary ductal dilatation, the common duct is normal measuring 3 mm. The aorta and IVC are within normal limits. The urinary bladder was empty during the exam and therefore difficult to evaluate. There is no free fluid in the abdomen or pelvis. Impression: Enlarged, fatty liver, otherwise normal exam Jean Munoz MD IMG US ORDERABL ES documented in this encounter Visit Diagnoses Not on filedocumented in this encounter
--- OUTSIDE RECORDS SUMMARY | 2024-06-10 07:38 | XMS_ITS | Encounter Summary ---
Author Organization [facility] Address [address] [place] [address] Care Team Providers Care Library Circulation Technician Name Role Phone Jean Munoz MD Primary Care Provider Encounter Details Date Type Department Care Team (Late st Contact Info) Description 06/26/2008 Before PRISM Converted Visit ([facility]) [facility] [address] [place] [address] Magaly Graves MD [facility] [address] [place], [place] [id number] Social History Tobacco Use Types Packs/Day Years Used Date Smoking Tobacco: Never Assessed Sex and Gender Information Value Date Recorded Sex Assigned at Not on file Gender Identity Female 08/11/2019 16:07 EST Sexual Orientation Not on file documented as of this encounter Procedure Notes * Magaly Graves - 04/04/2009 1925 EDT DIVISION OF PAIN MANAGEMENT PROCEDURE REPORT SERVICE DATE: 06/26/2008 SNOWMAKER: Yesenia Dee MD FOLLOW UP REP: Magaly Graves MD PROCEDURE Right C6-7 transforaminal epidural steroid injection with fluoroscopic guidance. PREPROCEDURE DIAGNOSIS Axial neck pain with right extremity radiculopathy. POSTPROCEDURE DIAGNOSIS Axial neck pain with right extremity radiculopathy. HISTORY OF PRESENT ILLNESS Ms. Viera was seen in consultation at the request of HIRAM Yi, for a right C6-7 transforaminal epidural steroid injection. She is a pleasant 47-year-old woman who fell at home through her deck and since then she has had increased neck discomfort. At the beginning of her symptoms she had bilateral upper extremity symptoms, with right being greater than her left. She states that she no longer has left upper extremity symptoms. She does complain of right upper extremity numbness. She doesnot complain of pain or weakness in that arm. Her main complaint of pain is in her axial neck and into her trapezius. She states that she does have some difficulty using her hand and shenotices this s matt she is right-handed. She has taken Vicodin, which she does not feel helps. She has taken Alevefrom which she did not notice any difference when she stopped taking it for the procedure. She is in physical therapy two times a week and she does traction three times a day. She states that her right arm numbness radiates down her humerus or lateral forearm and into her second digit. Also since the fall, she has had increasing balance problems and there is some question as to whether or not shehas central cord syndrome, although this is not evident on her MRI. REVIEW OF SYSTEMS Negative for bowel or bladder incontinence, bleeding problems, fevers, chills, shortness of breath,chest pain, nausea or vomiting. PHYSICAL EXAMINATION She is 5 feet 4 inches tall and weighs 160 pounds. Blood pressure 101/62, pulse 49, respirations 16, temperature 36.4. She is alert and oriented times three. She is appropriate and pleasant in no apparent distress. She has tenderness to palpation over her cervical spine and over her paraspinous muscles and trapezius muscles bilaterally. She has 5/5 motor strength throughout her left upper extremity, 5/5 strength with her biceps on her right side. She has 4/5 strength with burner technician strength and withtriceps on her right side. Sensation is intact. She has 2/4 reflexes throughout bilateral upper extremities. She has diminished extension to approximately 10 degrees. Forward flexion to the chin is ap proximately four fingers breadths. Rotation to the right and left is also diminished due to pain. She had a negative Spurling test. ASSESSMENT Axial neck pain with right extremity radiculopathy. PLAN 1. Per Mr. Dominguez request, we will perform a right C6-7 transforaminal epidural steroid injection.We did discuss with Ms. Yeboah since her pain complaint is mainly axial neck pain, that the epidural steroid injection may not provide her with relief from this. We also feel that she would notbenefit from a further injection at C5-6 on the right side. 2. We could consider an interlaminar cervical epidural steroid injection if it is felt that her pain symptoms continue to come from her radiculopathy. 3. In terms of her axial neck pain, which she complains is 100% of her pain symptoms, we could target her cervical facet joints with medial branch injections and then possibly followed with radiofrequency. 4. She is scheduled to follow up with us at the next available appointment for a possible cervical epidural versus medial branch blocks. 5. She is also to follow up with HIRAM Yi, with the results of this injection. PROCEDURE NOTE After discussing the risks and benefits with the patient, written and informed consent was obtained. The patient was taken to the fluoroscopy suite and placed in the supine position. The fluoroscope was directed to identify the right C6-7 neural foramen opening. The skin overlying this was prepped with Hibiclens solution and draped in a sterile fashion and then anesthetized with 2% lidocaine, a total of 0.5 mL. A 25-gauge, 2-1/2-inch spinal needle was inserted in coaxial fashion to come to lie at the posterior portion of the neural foraminal opening at the right C6 level. Once adequate depth was obtained and confirmed with AP fluoroscopy, there was negative aspiration for heme and CSF and no paresthesias, 1 mL of Isovue contrast was injected slowly and easily, which showed excellent spread along the C6 nerve root, under the pedicle and into the epidural space to both C5 and to C7. Subsequently, 12 mg of Decadron and 0.5 mL of 2% lidocaine was injected slowly and easily without pain or paresthesias. The needle was flushed and removed. The patient tolerated the procedure well. She wasmonitored for a short period of time before being discharged home in the company of a local city driver. Dr. Dee was present and participated throughout the entire procedure. I was present during the entire procedure. Signed by Yesenia Dee MD 07/03/2008 11:35 Magaly Graves MD Yesenia Dee MD - Magaly Graves MD - [facility] Job ID: [id number] Doc ID: [id number] cc: HIRAM Carrillo MD documented in this encounter Plan of Treatment Upcoming Encounters Date Type Department Care Team (Late st Contact Info) Description 06/29/2024 14:15 EDT Office Visit [facility] [address] [place] [address] Jean Munoz MD [address] [place] [phone] documented as of this encounter Visit Diagnoses Not on filedocumented in this encounter Care Teams Library Circulation Technician Relationship Specialty Start Date End Date Jean Munoz MD [address] [place] [phone] PCP - General 12/31/08 documented as of this encounter
--- OUTSIDE RECORDS SUMMARY | 2024-06-10 07:39 | XMS_ITS | Encounter Summary ---
Author Organization [facility] Address [address] [place] [address] Care Team Providers Care Passenger Locomotive Engineer Name Role Phone Unavailable Primary Care Provider Unavailabl e Encounter Details Date Type Department Care Team (Latest Contact Info) Description 04/23/2005 22:29 EDT Hospital Encounter [facility] Emergency Department - [facility] [address] [place], [place] [id number] Emergency, MD Ismael Discharge Disposition: Home or [...] EDT Office Visit [facility] [address] [place], [place] [id number] Jean Munoz MD [address] [place] [phone] documented as of this encounter Visit Diagnoses Not on filedocumented in this encounter
--- OUTSIDE RECORDS SUMMARY | 2024-06-10 07:39 | XMS_ITS | Encounter Summary ---
Author Organization [facility] Address [address] [place] [address] Care Team Providers Care Marketing Services Coordinator Name Role Phone Unavailable Primary Care Provider Unavailabl e Encounter Details Date Type Department Care Team (Latest Contact Info) Description 07/25/2001 8:45 EST - 07/25/2001 11:59 EST Hospital Encounter [facility] [address] [place] [address] Moi Munoz MD [address] [place] [phone] Discharge Disposition: Auto Discharge Social History [...] Description 06/29/2024 14:15 EDT Office Visit [facility] [address] [place] [address] Moi Munoz MD [address] [place] [phone] documented as of this encounter Procedures Procedure Name Priority Date/Time Associated Diagnosis Comments MA MAMMOGRAPHIC SCREEN MALENA Routine 07/25/2001 9:04 EST documented in this encounter Results * MA MAMMOGRAPHIC SCREEN MALENA (07/25/2001 9:04 EST) Anatomical Region Laterality Modality Other 07/25/2001 9:04 EST Impressions 08/02/2009 2:45 EST IMPRESSION: BILATERAL BREASTS - Category 1 Negative, no evidence of malignancy. Normal interval follow-up is recommended in 12 months. OVERALL ASSESSMENT - NEGATIVE END OF IMPRESSION Narrative 08/02/2009 2:45 EST ROUTINE ??(MOI MUNOZ,PCP) Comparison is made to films from 05-26-2000 (bilateral). Bilateral Breast Findings: There are scattered fibroglandular densities. No masses, significant calcifications or other abnormalities are seen. Procedure Note Tyesha Krause, PT / Moi Peterson MD - 08/02/2009 ROUTINE (MOI MUNOZ,PCP) Comparison is made to films from 05-26-2000 (bilateral). Bilateral Breast Findings: There are scattered fibroglandular densities. No masses, significant calcifications or other abnormalities are seen. IMPRESSION IMPRESSION: BILATERAL BREASTS - Category 1 Negative, no evidence of malignancy. Normal interval follow-up is recommended in 12 months. OVERALL ASSESSMENT - NEGATIVE END OF IMPRESSION Moi Munoz MD IMG MAMMOGRAPHY ORDERABLES documented in this encounter Visit Diagnoses Not on filedocumented in this encounter
--- OUTSIDE RECORDS SUMMARY | 2024-06-10 07:39 | XMS_ITS | Encounter Summary ---
Author Organization [facility] Address [address] [place] [address] Care Team Providers Care Usability Specialist Name Role Phone Unavailable Primary Care Provider Unavailabl e Encounter Details Date Type Department Care Team (Latest Contact Info) Description 03/03/2000 14:30 EDT Hospital Encounter [facility] [address] [place] [address] Eliza Francis MD [address] [place] [phone] Unknown, Provider, Discharge Disposition: Auto Discharge Social History Tobacco [...] 06/29/2024 14:15 EDT Office Visit [facility] [place] [address] [place] [address] Jean Munoz MD [address] [place] [phone] documented as of this encounter Procedures Procedure Name Priority Date/Time Associated Diagnosis Comments BACTERIAL CULTURE, GENITAL Routine 03/03/2000 14:00 EDT TESTS ADDED BY PHONE Routine 03/03/2000 14:00 EDT COMPLETE BLOOD COUNT Routine 03/03/2000 14:00 EDT TSH Routine 03/03/2000 14:00 EDT HDL Routine 03/03/2000 14:00 EDT FSH Routine 03/03/2000 14:00 EDT CHOLESTEROL Routine 03/03/2000 14:00 EDT BASIC METABOLIC PANEL (BMP) Routine 03/03/2000 14:00 EDT documented in this encounter Results * BACTERIAL CULTURE, GENITAL (03/03/2000 14:00 EDT) Specimen Description Vagina [facility] Result Few Mixed gram positive and gram negative organisms [facility] Report Status Final [id number] [facility] 03/03/2000 14:0 0 EDT 03/03/2000 15:58 EDT Eliza Francis MD HISTORICAL LAB FOR S Q LOAD Performing Organization Address City/[facility]/ZIP Co de Phone Number [facility] [address] [place] [address] * TSH (03/03/2000 14:00 EDT) TSH 1.16 0.35 - 5.50 uIU/ml [facility] 03/03/2000 14:0 0 EDT 03/03/2000 15:48 EDT Eliza Francis MD CHEMISTRY & BLOOD GA S ORDERABLES [facility] [address] [place] [address] * HDL (03/03/2000 14:00 EDT) HDL 36 mg/dl [facility] Comment: Highly Desirable:>60 Desirable:35-60 High Risk:<35 03/03/2000 14:0 0 EDT 03/03/2000 15:48 EDT Eliza Francis MD CHEMISTRY & BLOOD GA S ORDERABLES Performing Organization Address [facility] de Phone Number [facility] [address] [place] [address] * FSH (03/03/2000 14:00 EDT) FSH 7.9 mIU/ml [facility] Comment: Follicular: 2-11 Mid-Cycle Peak: 3.4-35 Luteal: 1-9 Postmenopausal: 25-120 Note new reference range. 03/03/2000 14:0 0 EDT 03/03/2000 15:48 EDT Eliza Francis MD CHEMISTRY & BLOOD GA S ORDERABLES Performing Organization Address [facility] Phone Number [facility] [address] [place] [address] * CHOLESTEROL (03/03/2000 14:00 EDT) Cholesterol 168 mg/dl [facility] Comment: Desirable:<200 Borderline:200-239 High Risk:>bj=245 03/03/2000 14:0 0 EDT 03/03/2000 15:48 EDT Eliza Francis MD CHEMISTRY & BLOOD GA S ORDERABLES Performing Organization Address [facility] de Phone Number [facility] [address] [place] [address] * (ABNORMAL) HEMAGRAM (03/03/2000 14:00 EDT) WBC 5.13 4.0 - 12.4 K/cmm [facility] RBC 3.98 3.86 - 5.04 M/cmm [facility] Hemoglobin 13.6 11.6 - 15.2 gm/dl [facility] HCT 39.2 34.9 - 44.4 % [facility] MCV 98 81 - 98 fl [facility] MCH 34.1(H) 26.7 - 33.3 pg [facility] MCHC 34.7 32.1 - 35.9 gm/dl [facility] PLT 322(H) 141 - 320 K/cmm [facility] RDW-CV 12.2 11.7 - 14.6 % [facility] 03/03/2000 14:0 0 EDT 03/03/2000 15:48 EDT Eliza Francis MD HEMATOLOGY & PF4 ORD ERABLES Performing Organization Address City/[facility] Co de Phone Number [facility] [address] [place] [address] * (ABNORMAL) BASIC METABOLIC PANEL (03/03/2000 14:00 EDT) Sodium 143 136 - 145 mEq/L [facility] Potassium 4.0 3.5 - 5.0 mEq/L [facility] Chloride 106 96 - 110 mEq/L [facility] CO2 27 24 - 30 mEq/L [facility] BUN 6(L) 10 - 26 mg/dl [facility] Creatinine 0.8 0.7 - 1.5 mg/dl [facility] Calcium 8.6 8.5 - 10.5 mg/dl [facility] Calculated Calcium 9.3 8.5 - 10.5 mg/dl [facility] Glucose, Serum 103 70 - 110 mg/dl [facility] 03/03/2000 14:0 0 EDT 03/03/2000 15:48 EDT Eliaz Francis MD CHEMISTRY & BLOOD GA S ORDERABLES Performing Organization Address City/[facility]/ZIP Co de Phone Number [facility] [address] [place] [address] * TESTS ADDED BY PHONE (03/03/2000 14:00 EDT) Tests to be added CHOL,HDL [facility] Diagnosis Code SCREENING [facility] 03/03/2000 14:0 0 EDT 03/03/2000 15:48 EDT Eliza Francis MD CHEMISTRY & BLOOD GA S ORDERABLES Performing Organization Address City/State/[facility] Co de Phone Number [facility] [address] [place] [address] documented in this encounter Visit Diagnoses Not on filedocumented in this encounter
--- OUTSIDE RECORDS SUMMARY | 2024-06-10 07:39 | XMS_ITS | Encounter Summary ---
Author Organization [facility] Address [address] [place] [address] Care Team Providers Care Technology Consultant Name Role Phone Unavailable Primary Care Provider Unavailabl e Encounter Details Date Type Department Care Team (Late st Contact Info) Description 02/14/2002 8:55 EDT Hospital Encounter [facility] [address] [place] [address] Cory Cuevas MD [address] [place] [phone] Social History Tobacco Use Types Packs/Day Years [...] [facility] [address] [place] [address] Jean Munoz MD [address] [place] [phone] documented as of this encounter Visit Diagnoses Not on filedocumented in this encounter Additional Health Concerns Infection Onset Date Last Indicated Resolved Time R/O COVID-19 05/15/2022 05/15/2022 05/20/2022 22:1 6 EDT R/O COVID-19 11/14/2022 11/14/2022 11/14/2022 19:1 6 EST documented as of this encounter
--- OUTSIDE RECORDS SUMMARY | 2024-06-10 07:39 | XMS_ITS | Encounter Summary ---
Author Organization [facility] Address [address] [place] [address] Care Team Providers Care Plating Machine Operator Name Role Phone Unavailable Primary Care Provider Unavailabl e Encounter Details Date Type Department Care Team (Latest Contact Info) Description 04/11/2001 17:46 EDT Hospital Encounter [address] [address] Cate Patel MD [address] [place] [phone] Discharge Disposition: Auto Discharge Social History Tobacco [...] Visit [facility] [address] [place], [place] [phone] Jean Munoz MD [address] [place] [phone] documented as of this encounter Visit Diagnoses Not on filedocumented in this encounter
--- OUTSIDE RECORDS SUMMARY | 2024-06-10 07:39 | XMS_ITS | Encounter Summary ---
Author Organization [facility] Address [address] [place] [address] Care Team Providers Care Parachute Cushion Installer Name Role Phone Jean Munoz MD Primary Care Provider Manny Rizzo MD Unavailable Encounter Details Date Type Department Care Team (Late st Contact Info) Description 09/16/2004 Results Only [address] [address] Claribel Weston MD Social History Tobacco Use Types Packs/Day Years Used Date Smoking Tobacco: Never Assessed Sex and Gender Information Value Date Recorded Sex Assigned at Not on file Gender Identity Female 08/11/2019 16:07 EST Sexual Orientation Not on file documented as of this encounter Plan of Treatment Upcoming Encounters Date Type Department Care Team (Late st Contact Info) Description 06/29/2024 14:15 EDT Office Visit [address] [address] Jean Munoz MD [address] [place] [phone] Pending Results Name Type Priority Associated Diagnoses Date /Time BACTERIAL CULTURE, FECES Microbiology Routine 09/16/2004 12:22 EST documented as of this encounter Procedures Procedure Name Priority Date/Time Associated Diagnosis Comments OVA/PARASITE EXAM Routine 09/16/2004 12: 22 EST BACTERIAL CULTURE/SMEAR, FECES Routine 09/16/2004 12:22 EST documented in this encounter Results * OVA/PARASITE EXAM (09/16/2004 12:22 EST) Specimen Description Feces [facility] Result No ova and parasites seen. (If Cryptosporidium, Cyclospora, or microsporidium are suspected, specific tests must be requested.) [facility] Report Status Final [id number] [facility] 09/16/2004 12:2 2 EST 09/16/2004 20:58 EST Claribel Weston MD MICROBIOLOGY - GENER AL ORDERABLES Performing Organization Address [facility] de Phone Number [facility] [address] [place] [address] * BACTERIAL CULTURE/SMEAR, FECES (09/16/2004 12:22 EST) Specimen Description Feces [facility] Gram Smear Result Mod Polys Mixed fecal tasneem present [facility] Result Gram positive growth only No Salmonella, Shigella, Campylobacte r, Yersinia, or E. coli O157:H7 isolated [facility] Report Status Final [id number] [facility] 09/16/2004 12:2 2 EST 09/16/2004 20:58 EST Claribel Weston MD MICROBIOLOGY - GENER AL ORDERABLES Performing Organization Address [facility] de Phone Number [facility] [address] [place] [address] documented in this encounter Visit Diagnoses Not on filedocumented in this encounter Care Teams Parachute Cushion Installer Relationship Specialty Start Date End Date Jean Munoz MD [address] [place] [phone] PCP - General 12/31/08 Manny Rizzo MD [address] [place] [phone] 04/20/10 documented as of this encounter
--- OUTSIDE RECORDS SUMMARY | 2024-06-10 07:39 | XMS_ITS | Encounter Summary ---
Author Organization [facility] Address [address] [place] [address] Care Team Providers Care Supervisor Fireworks Assembly Name Role Phone Jean Munoz MD Primary Care Provider Manny Rizzo MD Unavailable Encounter Details Date Type Department Care Team (Late st Contact Info) Description 08/26/2004 Results Only [address] [phone] Jean Munoz MD [address] [place] [phone] Social History Tobacco Use Types Packs/Day [...] Description 06/29/2024 14:15 EDT Office Visit [address] [address] Jean Munoz MD [address] [place] [phone] documented as of this encounter Procedures Procedure Name Priority Date/Time Associated Diagnosis Comments HEPATITIS C AB W REFLEX TO HCV RNA BY PCR Routine 08/26/2004 12:21 EST PARVOVIRUS B19 AB, IGG, IGM, S Routine 08/26/2004 12:21 EST COMPLETE BLOOD COUNT AND DIFFERENTIAL Routine 08/26/2004 12:21 EST COMPREHENSIVE METABOLIC PANEL (CMP) Routine 08/26/2004 12:21 EST documented in this encounter Results * PARVOVIRUS ANTIBODY (08/26/2004 12:21 EST) Parvovirus IgG Ab 7.32Unit: Index(Note) -- EXPECTED VALUES -- ? (Ref Range) <0.90 = Negative ? 0.90 - 1.10 = Equivocal ? >1.10 = Positive ? TEST PERFORMED OR REFERRED BY [facility] ? [address] ? [place] [address] ? Chief Cardiopulmonary Technologist: ? Malcolm Quintero M.D. ? [facility] Parvovirus IgM Ab 0.17Unit: Index(Note) -- EXPECTED VALUES -- ? (Ref Range) <0.90 = Negative ? 0.90 - 1.10 = Equivocal ? >1.10 = Positive ? [facility] Interpretation (Note) Results suggest past infection. ? The presence of IgM class antibodies indicates recent ? infection. ??The presence of IgG antibodies only is ? indicative of past exposure. ??The prevalence of Parvovirus ? B19 IgG antibodies increases with age. ??The age specific ? prevalence of antibodies to parvovirus is 2% to 9% of ? children under 5, 15% to 35% in children 5 to 18 years of ? age, and 30% to 60% in adults (19 years or older.) ??Both ? IgG and IgM may be present at or soon after onset of ? illness and reach peak titers within 30 days. ??Because ? IgG antibody may persist for years, diagnosis of acute ? infection is made by the detection of IgM antibodies. ? TEST PERFORMED OR REFERRED BY [facility] ? [address] ? [place] [address] ? Chief Cardiopulmonary Technologist: ? Malcolm Quintero M.D. ? [facility] 08/26/2004 12:2 1 EST 08/26/2004 17:09 EST Jean Munoz MD IMMUNOLOGY AND SEROLOGY ORDERABLES Performing Organization Address [facility] de Phone Number [facility] [address] [place] [address] * HEPATITIS C ANTIBODY (08/26/2004 12:21 EST) Hepatitis C Ab Neg [facility] 08/26/2004 12:2 1 EST 08/26/2004 17:09 EST Jean Munoz MD CHEMISTRY & BLO OD GAS ORDERABLES Performing Organization Address [facility] de Phone Number [facility] [address] [place] [address] * (ABNORMAL) COMPREHENSIVE METABOLIC PANEL (08/26/2004 12:21 EST) Potassium 3.6 3.5 - 5.0 mEq/L [facility] Sodium 144 136 - 145 mEq/L [facility] Chloride 111(H) 96 - 110 mEq/L [facility] CO2 24 24 - 32 mEq/L [facility] Total Alkaline Phosphatase 67 38 - 126 U/L [facility] Bilirubin, Total <0.5 0.2 - 1.3 mg/dl [facility] AST 17 15 - 46 U/L [facility] ALT 18 9 - 52 U/L [facility] Albumin 3.6 3.4 - 4.9 g/dl [facility] Total Protein 6.9 6.5 - 8.0 g/dl [facility] Creatinine 0.6(L) 0.7 - 1.5 mg/dl [facility] BUN 10 10 - 26 mg/dl [facility] Calcium 8.5 8.5 - 10.5 mg/dl [facility] Calculated Calcium 9.3 8.5 - 10.5 mg/dl [facility] Glucose, Serum 110 70 - 110 mg/dl [facility] Fasting? Yes [facility] Albumin/Globulin Ratio 1.1 [facility] 08/26/2004 12:2 1 EST 08/26/2004 17:09 EST Jean Munoz MD CHEMISTRY & BLO OD GAS ORDERABLES [facility] [address] [place] [address] * (ABNORMAL) HEMAGRAM AND DIFFERENTIAL (08/26/2004 12:21 EST) WBC 8.68 4.0 - 12.4 K/cmm [facility] RBC 3.73(L) 3.86 - 5.04 M/cmm [facility] Hemoglobin 13.0 11.6 - 15.2 gm/dl [facility] HCT 37.0 34.9 - 44.4 % [facility] MCV 99(H) 81 - 98 fl [facility] MCH 34.7(H) 26.7 - 33.3 pg [facility] MCHC 35.0 32.1 - 35.9 gm/dl [facility] PLT 374(H) 141 - 320 K/cmm [facility] RDW-CV 13.8 11.7 - 14.6 % [facility] % Neutrophils 62.1 45.5 - 79.7 % [facility] % Lymphocytes 26.3 15.0 - 46.8 % [facility] % Monocytes 7.3 1.8 - 12.0 % [facility] % Eosinophils 3.9 0.6 - 6.9 % [facility] % Basophils 0.4 0.2 - 1.4 % [facility] ABS Neutrophils 5.39 2.20 - 8.85 K/cmm [facility] ABS Lymphs 2.28 1.09 - 3.30 K/cmm [facility] ABS Monocytes 0.63 0.1 - 0.8 K/cmm [facility] ABS Eosinophils 0.34 0.03 - 0.61 K/cmm [facility] ABS Basophils 0.03 0.01 - 0.11 K/cmm [facility] Type of Diff: Automated [facility] 08/26/2004 12:2 1 EST 08/26/2004 17:09 EST Jean Munoz MD PACKAGES & DNA PROBE ORDERABLES [facility] [address] [place] [address] documented in this encounter Visit Diagnoses Not on filedocumented in this encounter Care Teams Supervisor Fireworks Assembly Relationship Specialty Start Date End Date Jean Munoz MD [address] [place] [phone] PCP - General 12/31/08 [place] [address] [place] [phone] 04/20/10 documented as of this encounter
--- OUTSIDE RECORDS SUMMARY | 2024-06-10 07:39 | XMS_ITS | Encounter Summary ---
Author Organization [facility] Address [address] [place] [address] Care Team Providers Care Unloading Checker Name Role Phone Unavailable Primary Care Provider Unavailabl e Encounter Details Date Type Department Care Team (Late st Contact Info) Description 03/25/2005 12:41 EDT Hospital Encounter [facility] - Other [address] [place] [address] Jean Munoz MD [address] [place] [phone] Social History Tobacco Use Types Packs/Day [...] or slept in a retirement (including now)? Yes 07/15/2023 Interpersonal Safety Answer [...] Health Care [facility] [address] [place] [address] Jean Munoz MD [address] [place] [phone] documented as of this encounter Visit Diagnoses Not on filedocumented in this encounter Additional Health Concerns Infection Onset Date Last Indicated Resolved Time R/O COVID-19 05/15/2022 05/15/202205/2005/20/2022 22:1 6 EDT R/O COVID-19 11/14/2022 11/14/2022 11/14/2022 19:1 6 EST documented as of this encounter
--- OUTSIDE RECORDS SUMMARY | 2024-06-10 07:39 | XMS_ITS | Encounter Summary ---
Author Organization [facility] Address [address] [place] [address] Care Team Providers Care Consumer Insights Specialist Name Role Phone Unavailable Primary Care Provider Unavailabl e Encounter Details Date Type Department Care Team (Latest Contact Info) Description 11/04/2004 15:33 EST Hospital Encounter [facility] - Other [address] [place] [address] Vimal Garcia MD [address] [phone] Discharge Disposition: Auto Discharge Social History Tobacco [...] EDT Office Visit [facility] [address] [place], [place] [phone] Jean Munoz MD [address] [place] [phone] documented as of this encounter Visit Diagnoses Not on filedocumented in this encounter
--- OUTSIDE RECORDS SUMMARY | 2024-06-10 07:39 | XMS_ITS | Encounter Summary ---
Author Organization [facility] Address [address] [place] [address] Care Team Providers Care Ethanol Operator Name Role Phone Unavailable Primary Care Provider Unavailabl e Encounter Details Date Type Department Care Team (Late st Contact Info) Description 02/13/2005 12:05 EDT Hospital Encounter [facility] - Other [address] [place] [address] Jean Munoz MD [address] [place] [phone] Social History Tobacco Use Types Packs/Day [...] EDT Office Visit [facility] [address] [place] [address] Jean Munoz MD [address] [place] [phone] documented as of this encounter Visit Diagnoses Not on filedocumented in this encounter Additional Health Concerns Infection Onset Date Last Indicated Resolved Time R/O COVID-19 05/15/2022 05/15/202205/2005/20/2022 22:1 6 EDT R/O COVID-19 11/14/2022 11/14/2022 11/14/2022 19:1 6 EST documented as of this encounter
--- OUTSIDE RECORDS SUMMARY | 2024-06-10 07:39 | XMS_ITS | Encounter Summary ---
Author Organization [facility] Address [address] [place] [address] Care Team Providers Care Preparation Supervisor Freezing Name Role Phone Unavailable Primary Care Provider Unavailabl e Encounter Details Date Type Department Care Team (Late st Contact Info) Description 10/19/2001 15:07 [facility] Hospital Encounter [facility] - Other [address] [place] [address] Moi Munoz MD [address] [place] [phone] Unknown, MD Berta Social History Tobacco Use Types Packs/Day Years [...] or slept in a halfway (including now)? Yes 07/15/2023 Interpersonal Safety Answer [...] Office Visit [facility] [address] [place] [address] Moi Munoz MD [address] [place] [phone] documented as of this encounter Procedures Procedure Name Priority Date/Time Associated Diagnosis Comments COMPLETE BLOOD COUNT Routine 10/19/2001 14:30 EST TSH Routine 10/19/2001 14:30 EST HDL Routine 10/19/2001 14:30 EST CHOLESTEROL Routine 10/19/2001 14:30 EST CYTOPATHOLOGY Routine 10/19/2001 0:00 EST documented in this encounter Results * TSH (10/19/2001 14:30 EST) TSH 1.55 0.35 - 5.50 uIU/ml [facility] 10/19/2001 14:3 0 EST 10/19/2001 18:04 EST Moi Munoz MD CHEMISTRY & BLO OD GAS ORDERABLES Performing Organization Address [facility] Phone Number [facility] [address] [place] [address] * HDL (10/19/2001 14:30 EST) HDL 53 mg/dl [facility] Comment: Highly Desirable:>60 Desirable:35-60 High Risk:<35 10/19/2001 14:3 0 EST 10/19/2001 18:04 EST Moi Munoz MD CHEMISTRY & BLO OD GAS ORDERABLES Performing Organization Address [facility] Phone Number [facility] [address] [place] [address] * CHOLESTEROL (10/19/2001 14:30 EST) Cholesterol 161 mg/dl [facility] Comment: Desirable:<200 Borderline:200-239 High Risk:>jx=[id number] 10/19/2001 14:3 0 EST 10/19/2001 18:04 EST Moi Munoz MD CHEMISTRY & BLO OD GAS ORDERABLES Performing Organization Address [facility] de Phone Number [facility] [address] [place] [address] * (ABNORMAL) HEMAGRAM (10/19/2001 14:30 EST) WBC 10.15 4.0 - 12.4 K/cmm [facility] RBC 4.13 3.86 - 5.04 M/cmm [facility] Hemoglobin 13.9 11.6 - 15.2 gm/dl [facility] HCT 40.3 34.9 - 44.4 % [facility] MCV 97 81 - 98 fl [facility] MCH 33.7(H) 26.7 - 33.3 pg [facility] MCHC 34.6 32.1 - 35.9 gm/dl [facility] PLT 383(H) 141 - 320 K/cmm [facility] RDW-CV 13.5 11.7 - 14.6 % [facility] 10/19/2001 14:3 0 EST 10/19/2001 18:04 EST Moi Munoz MD HEMATOLOGY & PF 4 ORDERABLES Performing Organization Address [facility] de Phone Number [facility] [address] [place] [address] * CYTOPATHOLOGY (10/19/2001 0:00 EST) Pathology Report: CYTOPATHOLOGY REPORT Reports generated via electronic interface contain original data; however they are lacking the format of the original report. Caution should be taken when reading/interpreti ng unformatted reports. Name: ? MARIA DEL ROSARIO MEADOWS ? Accession #: ? [id number] : ? 1960 (Age: 40) ??F ?Collect Date: ? 10/19/2001 Location: ? [facility] ? Receive Date: ? 10/20/2001 Provider: ?MOI MUNOZ MD Copy to: ? Specimen/Source: ?ThinPrep Pap Test, Vagina Last Menstrual Period: ? 5 yrs ago Treatment History: ? Hysterectomy ? SPECIMEN ADEQUACY ? Satisfactory for Evaluation - transformation zone component present GENERAL CATEGORIZATION ? Negative for Intraepithelial Lesion or Malignancy INTERPRETATION ? Trichomonas vaginalis present. Fungal organisms present morphologically consistent with Laura species. ? Document reviewed and electronically signed by: ? LIBERTY Zhang(ASCP) ? Report Date: ??10/21/2001 14:37 End of Report [facility] 10/19/2001 10/20/2001 Moi Munoz MD PATHOLOGY ORDER KATHI [facility] [address] [place] [address] documented in this encounter Visit Diagnoses Not on filedocumented in this encounter Additional Health Concerns Infection Onset Date Last Indicated Resolved Time R/O COVID-19 05/15/2022 05/15/2022 05/20/2022 22:1 6 EDT R/O COVID-19 11/14/2022 11/14/2022 11/14/2022 19:1 6 EST documented as of this encounter
--- OUTSIDE RECORDS SUMMARY | 2024-06-10 07:39 | XMS_ITS | Encounter Summary ---
Author Organization [facility] Address [address] [place] [address] Care Team Providers Care Television Inspector Name Role Phone Unavailable Primary Care Provider Unavailabl e Encounter Details Date Type Department Care Team (Late st Contact Info) Description 11/24/2001 11:31 EST Hospital Encounter [facility] [address] [place] [address] Cory Cuevas MD [address] [place] [phone] Social History Tobacco Use Types Packs/Day [...] Office Visit [facility] [address] [place] [address] Jean Munoz MD [address] [place] [phone] documented as of this encounter Visit Diagnoses Not on filedocumented in this encounter Additional Health Concerns Infection Onset Date Last Indicated Resolved Time R/O COVID-19 05/15/2022 05/15/202205/20/2022 22:1 6 EDT R/O COVID-19 11/14/2022 11/14/2022 11/14/2022 19:1 6 EST documented as of this encounter
--- OUTSIDE RECORDS SUMMARY | 2024-06-10 07:39 | XMS_ITS | Encounter Summary ---
Author Organization [facility] Address [address] [place] [address] Care Team Providers Care Rehabilitation Teacher Name Role Phone Jean Munoz MD Primary Care Provider Manny Rizzo MD Unavailable Encounter Details Date Type Department Care Team (Late st Contact Info) Description 01/28/2005 Results Only [facility] [address] [place] [address] Marie Natarajan PA Social History Tobacco Use Types Packs/Day Years [...] Visit [facility] [address] [place] [address] Jean Munoz MD [address] [place] [phone] documented as of this encounter Procedures Procedure Name Priority Date/Time Associated Diagnosis Comments GLUCOSE, SERUM Routine 01/28/2005 9:15 EDT documented in this encounter Results * (ABNORMAL) GLUCOSE, SERUM (01/28/2005 9:15 EDT) Glucose, Serum 139(H) 70 - 110 mg/dl [facility] Comment:Performed at [facility], [place], [place] 01/28/2005 9:15 EDT 01/28/2005 9:17 EDT Marie GANDHI CHEMISTRY & BLOOD GA S ORDERABLES [facility] [address] [place] [address] documented in this encounter Visit Diagnoses Not on filedocumented in this encounter Care Teams Rehabilitation Teacher Relationship Specialty Start Date End Date Jean Munoz MD [address] [place] [phone] PCP - General 12/31/08 Manny Rizzo MD [address] [place] [phone] 04/20/10 documented as of this encounter
--- OUTSIDE RECORDS SUMMARY | 2024-06-10 07:39 | XMS_ITS | Encounter Summary ---
Author Organization [facility] Address [address] [place] [address] Care Team Providers Care Java Programmer Analyst Name Role Phone Unavailable Primary Care Provider Unavailabl e Encounter Details Date Type Department Care Team (Late st Contact Info) Description 03/06/2005 7:57 EDT Hospital Encounter [address] [address] Jean Munoz MD [address] [place] [phone] Social History Tobacco Use Types Packs/Day [...] EDT Office Visit [facility] 3 [place] [address] Jean Munoz MD [address] [place] [phone] documented as of this encounter Visit Diagnoses Not on filedocumented in this encounter Additional Health Concerns Infection Onset Date Last Indicated Resolved Time R/O COVID-19 05/15/2022 05/15/202205/2005/20/2022 22:1 6 EDT R/O COVID-19 11/14/2022 11/14/2022 11/14/2022 19:1 6 EST documented as of this encounter
--- OUTSIDE RECORDS SUMMARY | 2024-06-10 07:39 | XMS_ITS | Encounter Summary ---
Author Organization [facility] Address [address] [place] [address] Care Team Providers Care Traveling Representative Name Role Phone Unavailable Primary Care Provider Unavailabl e Encounter Details Date Type Department Care Team (Latest Contact Info) Description 11/13/2003 13:57 EST - 12/12/2003 11:59 EST Hospital En[place] [facility] [address] [place] [address] Juan Luis Mccollum MD [address] [place] [phone] Discharge Disposition: Auto Discharge Social History Tobacco [...] Info) Description 06/29/2024 14:15 EDT Office Visit [facility] Medicine [facility] 3 [place] [address] Jean Munoz MD [address] [place] [phone] documented as of this encounter Visit Diagnoses Not on filedocumented in this encounter
--- OUTSIDE RECORDS SUMMARY | 2024-06-10 07:39 | XMS_ITS | Encounter Summary ---
Author Organization [facility] Address [address] [place] [address] Care Team Providers Care Safety Relief Valve Technician Name Role Phone Unavailable Primary Care Provider Unavailabl e Encounter Details Date Type Department Care Team (Latest Contact Info) Description 12/13/2003 12:32 EST - 01/11/2004 11:[address] [facility] [address] [place] [address] Juan Luis Mccollum MD [address] [place] [phone] Moi Munoz MD [address] [place] [phone] Discharge Disposition: Auto Discharge Social History [...] Info) Description 06/29/2024 14:15 EDT Office Visit [facility] Family Medicine [facility] 3 [place], [place] [phone] Moi Munoz MD [address] [place] [phone] documented as of this encounter Procedures Procedure Name Priority Date/Time Associated Diagnosis Comments MA MAMMO SCREENING DIGITAL Routine 01/10/2004 10:34 EDT NM NUCLEAR STRESS EXERCISE Routine 12/20/2003 10:04 EDT documented in this encounter Results * MA MAMMO SCREENING DIGITAL (01/10/2004 10:34 EDT) Anatomical Region Laterality Modality Other 01/10/2004 10:3 4 EDT Impressions 05/22/2009 15:23 EDT IMPRESSION: BILATERAL BREASTS - CATEGORY 1 Negative, no evidence of malignancy. Normal interval follow-up is recommended in 12 months. OVERALL ASSESSMENT - NEGATIVE END OF IMPRESSION Narrative 05/22/2009 15:23 EDT ROUTINE {PCP MOI MUNOZ} Comparison is made to films from 05-26-2000 and 07-25-2001. Bilateral Breast Findings (CAD used to interpret routine digital projection): There are scattered fibroglandular densities. No significant masses, calcifications or other abnormalities are seen. Procedure Note Deanna Strange MD - 05/22/2009 ROUTINE {PCP MOI MUNOZ} Comparison is made to films from 05-26-2000 and 07-25-2001. Bilateral Breast Findings (CAD used to interpret routine digital projection): There are scattered fibroglandular densities. No significant masses, calcifications or other abnormalities are seen. IMPRESSION IMPRESSION: BILATERAL BREASTS - CATEGORY 1 Negative, no evidence of malignancy. Normal interval follow-up is recommended in 12 months. OVERALL ASSESSMENT - NEGATIVE END OF IMPRESSION Moi Munoz MD IMG MAMMOGRAPHY ORDERABLES * NUCLEAR STRESS TEST (12/20/2003 10:04 EDT) Anatomical Region Laterality Modality Other 12/20/2003 10:0 4 EDT Narrative 05/27/2009 9:18 EDT NUC STRESS, 786.50 CP ETT-CL WGHT 160 SPECT Tc-99m SESTAMIBI (CARDIOLITE) MYOCARDIAL PERFUSION STRESS AND REST SCINTIGRAPHY: 12/20/03 INDICATIONS: chest pain. TECHNIQUE: With the patient at rest, 14.2 mCi of Tc-99m Sestamibi (Cardiolite) were injected intravenously. SPECT images were obtained one hour later. At peak exercise, 35.5 mCi of Tc-99m Sestamibi (Cardiolite) were injected intravenously. SPECT and SPECT-gated images were obtained after an appropriate delay. FINDINGS: Right and left ventricular size, myocardial perfusion, and wall motion are normal. LVEF = 57% D 12/20/03 T 12/21/03 Procedure Note Leonora Strong / Gage Reddy MD - 05/27/2009 NUC STRESS, 786.50 CP ETT-CL [facility] 160 SPECT Tc-99m SESTAMIBI (CARDIOLITE) MYOCARDIAL PERFUSION STRESS AND REST SCINTIGRAPHY: 12/20/03 INDICATIONS: chest pain. TECHNIQUE: With the patient at rest, 14.2 mCi of Tc-99m Sestamibi (Cardiolite) were injected intravenously. SPECT images were obtained one hour later. At peak exercise, 35.5 mCi of Tc-99m Sestamibi (Cardiolite) were injected intravenously. SPECT and SPECT-gated images were obtained after an appropriate delay. FINDINGS: Right and left ventricular size, myocardial perfusion, and wall motion are normal. LVEF = 57% D 12/20/03 T 12/21/03 Moi Munoz MD CARDIAC [facility] [place] documented in this encounter Visit Diagnoses Not on filedocumented in this encounter
--- OUTSIDE RECORDS SUMMARY | 2024-06-10 07:39 | XMS_ITS | Encounter Summary ---
Author Organization [facility] Address [address] [place] [address] Care Team Providers Care Loss Prevention Analyst Name Role Phone Unavailable Primary Care Provider Unavailabl e Encounter Details Date Type Department Care Team (Latest Contact Info) Description 08/16/2001 14:18 EST - 09/12/2001 11:59 EST Hospital Encounter [facility] [address] [place] [address] Jean Munoz MD [address] [place] [phone] Discharge Disposition: Auto Discharge Social History [...] Description 06/29/2024 14:15 EDT Office Visit [facility] Family Medicine [facility] [address] [place] [address] Jean Munoz MD [address] [place] [phone] documented as of this encounter Visit Diagnoses Not on filedocumented in this encounter
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
--- OUTSIDE RECORDS SUMMARY | 2024-06-10 07:39 | XMS_ITS | Encounter Summary ---
Author Organization [facility] Address [address] [place] [address] Care Team Providers Care Assistant Professor Of History Name Role Phone Unavailable Primary Care Provider Unavailabl e Encounter Details Date Type Department Care Team (Late st Contact Info) Description 11/08/2001 9:55 EST - 11/08/2001 11:59 EST Hospital Encounter [address] [address] Cory Cuevas MD [address] [place] [phone] Discharge Disposition: Auto Discharge Social History Tobacco [...] [facility] Family [facility] 3 [place] [address] Jean Munoz MD [address] [place] [phone] documented as of this encounter Visit Diagnoses Not on filedocumented in this encounter
--- OUTSIDE RECORDS SUMMARY | 2024-06-10 07:39 | XMS_ITS | Encounter Summary ---
Author Organization [facility] Address [address] [place] [address] Care Team Providers Care Automatic Outsole Cutter Name Role Phone Unavailable Primary Care Provider Unavailabl e Encounter Details Date Type Department Care Team (Late st Contact Info) Description 12/13/2001 13:28 EST Hospital Encounter [facility] [address] [place] [address] Cory Cuevas MD [address] [place] [phone] Social History Tobacco Use Types Packs/Day [...] EDT Office Visit [facility] [address] [place] [address] Jean Munoz MD [address] [place] [phone] documented as of this encounter Procedures Procedure Name Priority Date/Time Associated Diagnosis Comments CHEST PA AND LATERAL Routine 12/20/2001 8:59 EDT documented in this encounter Results * CHEST PA AND LATERAL (12/20/2001 8:59 EDT) Anatomical Region Laterality Modality Other 12/20/2001 8:59 EDT Impressions 06/26/2009 1:50 EDT IMPRESSION: Normal PA & lateral chest radiographs. Narrative 06/26/2009 1:50 EDT COUGH, FEVER R/O PNEUMONIA 2 VIEWS OF CHEST 12/20/01 0830 NO COMPARISON HISTORY: Cough and fever FINDINGS: 2 views of chest routine. The soft tissues and bony structures are intact. The heart is normal in size and configuration. The lungs are clear. Mediastinal and hilar contours are normal. There is no pleural abnormality seen. Procedure Note Patrice Hoffman MD / Malcolm Michele MD - 06/26/2009 COUGH, FEVER R/O PNEUMONIA 2 VIEWS OF CHEST 12/20/01 0830 NO COMPARISON HISTORY: Cough and fever FINDINGS: 2 views of chest routine. The soft tissues and bony structures are intact. The heart is normal in size and configuration. The lungs are clear. Mediastinal and hilar contours are normal. There is no pleural abnormality seen. IMPRESSION IMPRESSION: Normal PA & lateral chest radiographs. Maj Manish JOSEPH IMG DIAGNOSTIC IMAGI NG ORDERABLES documented in this encounter Visit Diagnoses Not on filedocumented in this encounter Additional Health Concerns Infection Onset Date Last Indicated Resolved Time R/O COVID-19 05/15/2022 05/15/2022 05/20/2022 22:1 6 EDT R/O COVID-19 11/14/2022 11/14/2022 11/14/2022 19:1 6 EST documented as of this encounter
--- OUTSIDE RECORDS SUMMARY | 2024-06-10 07:39 | XMS_ITS | Encounter Summary ---
Author Organization [facility] Address [address] [place] [address] Care Team Providers Care Credit Card Clerk Name Role Phone Unavailable Primary Care Provider Unavailabl e Encounter Details Date Type Department Care Team (Latest Contact Info) Description 02/07/2001 16:09 EDT Hospital Encounter [facility] Emergency Department - [facility] [address] [place], [place] [phone] Emergency, MD Ismael Discharge Disposition: Home or [...] [facility] [address] [place], [place] [phone] Jean Munoz MD [address] [place] [phone] documented as of this encounter Visit Diagnoses Not on filedocumented in this encounter
--- OUTSIDE RECORDS SUMMARY | 2024-06-10 07:39 | XMS_ITS | Encounter Summary ---
Author Organization [facility] Address [address] [place] [address] Care Team Providers Care Executive Housekeeper Name Role Phone Unavailable Primary Care Provider Unavailabl e Encounter Details Date Type Department Care Team (Late st Contact Info) Description 09/16/2004 11:38 EST Hospital Encounter [facility] [address] [place] [address] Claribel Weston MD Social History Tobacco Use [...] Visit [facility] [address] [place] [address] Jean Munoz MD [address] [place] [phone] documented as of this encounter Procedures Procedure Name Priority Date/Time Associated Diagnosis Comments HIP UNILATERAL 2 OR MORE VIEWS Routine 11/04/2004 15:03 EST HIP UNILATERAL 2 OR MORE VIEWS Routine 11/04/2004 15:03 EST KNEE 4 OR MORE VIEWS Routine 11/04/2004 15:03 EST KNEE 1 OR 2 VIEWS Routine 11/04/2004 15: 03 EST documented in this encounter Results * KNEE 4 OR MORE VIEWS (11/04/2004 15:03 EST) Anatomical Region Laterality Modality Other 11/04/2004 15:0 3 EST Impressions 05/15/2009 13:00 EDT IMPRESSION: 1. Unremarkable left knee. 2. Unremarkable limited examination of the right knee. D 11/07/04 T 11/09/04 /jl Narrative 05/15/2009 13:00 EDT B HIP PAIN/LT KNEE PAIN OA.AVN LEFT KNEE FOUR VIEWS AND RIGHT KNEE TWO VIEWS 11/04/04 FINDINGS: AP weight bearing, AP weight bearing flexed bilateral knees and left knee lateral and FICAT. On the tibiofemoral, the joint spaces are preserved bilaterally. There are no pathologic calcifications. The alignment is within normal limits. There is no evidence of fracture. Procedure Note Gage Reddy MD - 05/15/2009 B HIP PAIN/LT KNEE PAIN OA.AVN LEFT KNEE FOUR VIEWS AND RIGHT KNEE TWO VIEWS 11/04/04 FINDINGS: AP weight bearing, AP weight bearing flexed bilateral knees and left knee lateral and FICAT. On the tibiofemoral, the joint spaces are preserved bilaterally. There are no pathologic calcifications. The alignment is within normal limits. There is no evidence of fracture. IMPRESSION IMPRESSION: 1. Unremarkable left knee. 2. Unremarkable limited examination of the right knee. D 11/07/04 T 11/09/04 /haylie Vimal Garcia MD IMG DIAGNOSTIC IMAGI NG ORDERABLES * KNEE 1 OR 2 VIEWS (11/04/2004 15:03 EST) Anatomical Region Laterality Modality Other 11/04/2004 15:0 3 EST Narrative 05/15/2009 13:00 EDT B HIP PAIN/LT KNEE PAIN OA.AVN Procedure Note Gage Reddy MD - 05/15/2009 B HIP PAIN/LT KNEE PAIN OA.AVN Vimal THOMAS DIAGNOSTIC IMAGI NG ORDERABLES * HIP UNILATERAL 2 OR MORE VIEWS (11/04/2004 15:03 EST) Anatomical Region Laterality Modality Other 11/04/2004 15:0 3 EST Impressions 05/15/2009 13:00 EDT IMPRESSION: Unremarkable bilateral hip radiographs. /jv Narrative 05/15/2009 13:00 EDT B HIP PAIN/LT KNEE PAIN OA.AVN RIGHT HIP 2 VIEWS; LEFT HIP 2 VIEWS Both hip joint spaces are preserved. There are no pathologic calcifications. The alignment is normal. There is no evidence of fracture or bony lesion. Procedure Note Gage Reddy MD - 05/15/2009 B HIP PAIN/LT KNEE PAIN OA.AVN RIGHT HIP 2 VIEWS; LEFT HIP 2 VIEWS Both hip joint spaces are preserved. There are no pathologic calcifications. The alignment is normal. There is no evidence of fracture or bony lesion. IMPRESSION IMPRESSION: Unremarkable bilateral hip radiographs. /jv Vimal THOMAS DIAGNOSTIC IMAGI NG ORDERABLES * HIP UNILATERAL 2 OR MORE VIEWS (11/04/2004 15:03 EST) Anatomical Region Laterality Modality Other 11/04/2004 15:0 3 EST Narrative 05/15/2009 13:00 EDT B HIP PAIN/LT KNEE PAIN OA.AVN Procedure Note Gage Reddy MD - 05/15/2009 B HIP PAIN/LT KNEE PAIN OA.AVN Vimal THOMAS DIAGNOSTIC IMAGI NG ORDERABLES documented in this encounter Visit Diagnoses Not on filedocumented in this encounter Additional Health Concerns Infection Onset Date Last Indicated Resolved Time R/O COVID-19 05/15/2022 05/15/2022 05/20/2022 22:1 6 EDT R/O COVID-19 11/14/2022 11/14/2022 11/14/2022 19:1 6 EST documented as of this encounter
--- OUTSIDE RECORDS SUMMARY | 2024-06-10 07:39 | XMS_ITS | Encounter Summary ---
Author Organization [facility] Address [address] [place] [address] Care Team Providers Care Account Analyst Name Role Phone Jean Munoz MD Primary Care Provider Encounter Details Date Type Department Care Team (Late st Contact Info) Description 05/25/2005 Results Only [facility] Endocrinology - [address] [place], [place] [phone] Charlene Raymond MD [facility] [address] [facility] [address] [place] [phone] Social History Tobacco Use Types Packs/Day Years [...] [facility] Family Medicine [facility] [address] [place], [place] [phone] Jean Munoz MD [address] [place] [phone] documented as of this encounter Procedures Procedure Name Priority Date/Time Associated Diagnosis Comments ZZHEMOGLOBIN A1C Routine 05/25/2005 14:1 4 EDT documented in this encounter Results * HEMOGLOBIN A1C (05/25/2005 14:14 EDT) POCT Hgb A1C 5.6 4.5 - 5.7 % [facility] Comment:Test Performed at [facility] 05/25/2005 14:1 4 EDT 05/27/2005 14:26 EDT Charlene Raymond MD PhD CHEMISTRY & BLOOD GAS ORDERABLES [facility] [address] [place] [address] documented in this encounter Visit Diagnoses Not on filedocumented in this encounter Care Teams Account Analyst Relationship Specialty Start Date End Date Jean Munoz MD [address] [place] [phone] PCP - General 12/31/08 documented as of this encounter
--- OUTSIDE RECORDS SUMMARY | 2024-06-10 07:39 | XMS_ITS | Encounter Summary ---
Author Organization [facility] Address [address] [place] [address] Care Team Providers Care Rice Farmer Name Role Phone Unavailable Primary Care Provider Unavailabl e Encounter Details Date Type Department Care Team (Latest Contact Info) Description 05/26/2000 9:56 EDT - 05/26/2000 11:59 EDT Hospital Encounter [facility] [address] [place] [address] Moi Munoz MD [address] [place] [phone] Discharge Disposition: Auto Discharge Social History [...] Description 06/29/2024 14:15 EDT Office Visit [facility] 3 [place] [address] Moi Munoz MD [address] [place] [phone] documented as of this encounter Procedures Procedure Name Priority Date/Time Associated Diagnosis Comments HEPATITIS C AB W REFLEX TO HCV RNA BY PCR Routine 05/26/2000 10:31 EDT MA MAMMOGRAPHIC SCREEN MALENA Routine 05/26/2000 10:25 EDT documented in this encounter Results * HEPATITIS C ANTIBODY (05/26/2000 10:31 EDT) Hepatitis C Ab Neg [facility] 05/26/2000 10:3 1 EDT 05/26/2000 10:32 EDT Eliza Francis MD CHEMISTRY & BLOOD GA S ORDERABLES Performing Organization Address City/State/[facility] Co de Phone Number [facility] [address] [place] [address] * MA MAMMOGRAPHIC SCREEN MALENA (05/26/2000 10:25 EDT) Anatomical Region Laterality Modality Other 05/26/2000 10:2 5 EDT Impressions 07/23/2009 17:39 EST IMPRESSION: BILATERAL BREASTS - Category 1 Negative, no evidence of malignancy. Normal interval follow-up is recommended in 12 months. OVERALL ASSESSMENT - NEGATIVE END OF IMPRESSION Narrative 07/23/2009 17:39 EST BASELINE. ??(PCP MOI MUNOZ) This is the patient's baseline exam. Bilateral Breast Findings: There are scattered fibroglandular densities. No masses, significant calcifications or other abnormalities are seen. Procedure Note Amanda Herrera MD / Moi Peterson MD - 07/23/2009 BASELINE. (PCP MOI MUNOZ) This is the patient's baseline exam. Bilateral Breast Findings: There are scattered fibroglandular densities. No masses, significant calcifications or other abnormalities are seen. IMPRESSION IMPRESSION: BILATERAL BREASTS - Category 1 Negative, no evidence of malignancy. Normal interval follow-up is recommended in 12 months. OVERALL ASSESSMENT - NEGATIVE END OF IMPRESSION Moi Donohue MD MSc IMG MAMMOGR APHY ORDERABLES documented in this encounter Visit Diagnoses Not on filedocumented in this encounter
--- OUTSIDE RECORDS SUMMARY | 2024-06-10 07:39 | XMS_ITS | Encounter Summary ---
Author Organization [facility] Address [address] [place] [address] Care Team Providers Care Sample Dye Mixer Name Role Phone Unavailable Primary Care Provider Unavailabl e Encounter Details Date Type Department Care Team (Late st Contact Info) Description 09/19/2001 9:11 EST Hospital Encounter [facility] [address] [place] [address] Jean Munoz MD [address] [place] [phone] Social History Tobacco Use Types Packs/Day [...] Office Visit [facility] [address] [place] [address] Jean Munoz MD [address] [place] [phone] documented as of this encounter Visit Diagnoses Not on filedocumented in this encounter Additional Health Concerns Infection Onset Date Last Indicated Resolved Time R/O COVID-19 05/15/2022 05/15/2022 05/20/2022 22:1 6 EDT R/O COVID-19 11/14/2022 11/14/2022 11/14/2022 19:1 6 EST documented as of this encounter
--- OUTSIDE RECORDS SUMMARY | 2024-06-10 07:39 | XMS_ITS | Encounter Summary ---
Author Organization [facility] Address [address] [place] [address] Care Team Providers Care Field Aide Name Role Phone Jean Munoz MD Primary Care Provider Manny Rizzo MD Unavailable Afia Valle MD Unavailable [phone] Jesi Leong BUILDING RENTAL SUPERINTENDENT Unavailable Jesi Leong BUILDING RENTAL SUPERINTENDENT Unavailable Encounter Details Date Type Department Care Team (Late st Contact Info) Description 06/05/2005 Before PRISM Converted Visit (Maple) [facility] Family Medicine [address] [phone] Jean Munoz MD [address] [place] [phone] Social History Tobacco Use Types Packs/Day [...] EDT Office Visit [facility] 3 [place], [place] [phone] Jean Munoz MD [address] [place] [phone] documented as of this encounter Procedures Procedure Name Priority Date/Time Associated Diagnosis Comments RAD US ABDOMEN ONE ORGAN/QUADRANT 06/05/2005 10:30 EDT documented in this encounter Results * RAD US ABDOMEN ONE ORGAN/QUADRANT (06/05/2005 10:30 EDT) Anatomical Region Laterality Modality Other 06/05/2005 10:3 0 EDT Narrative 03/13/2009 9:40 EDT UPPER ABD PAIN, WORSE WITH MEALS ULTRASOUND ABDOMEN ONE ORGAN/QUADRANT: ??06/05/05, 1015 CLINICAL HISTORY: ??Upper abdominal pain, worse after meals. ??Rule out gallstones, other pathology. There is mild fatty infiltration of the liver. ??The liver is otherwise normal. ??The gallbladder is contracted. ??However, no calculi are identified and there is no evidence of gallbladder wall thickening or pericholecystic fluid. ??There is no biliary ductal dilatation and the common duct is normal in caliber, measuring 4mm. The pancreas is normal. ??The right kidney is sonographically normal, measuring 10.3 cm in length. ??The aorta and IVC are normal. IMPRESSION: 1) Fatty infiltration of the liver. 2) Contracted gallbladder, no calculi appreciated. D: ??06/05/05 T: ??06/05/05/sb Procedure Note Tiburcio Sidhu MD - 03/13/2009 UPPER ABD PAIN, WORSE WITH MEALS ULTRASOUND ABDOMEN ONE ORGAN/QUADRANT: 06/05/05, 1015 CLINICAL HISTORY: Upper abdominal pain, worse after meals. Rule out gallstones, other pathology. There is mild fatty infiltration of the liver. The liver is otherwise normal. The gallbladder is contracted. However, no calculi are identified and there is no evidence of gallbladder wall thickening or pericholecystic fluid. There is no biliary ductal dilatation and the common duct is normal in caliber, measuring 4mm. The pancreas is normal. The right kidney is sonographically normal, measuring 10.3 cm in length. The aorta and IVC are normal. IMPRESSION: 1) Fatty infiltration of the liver. 2) Contracted gallbladder, no calculi appreciated. /sb Jean Munoz MD IMG US ORDERABL ES documented in this encounter Visit Diagnoses Not on filedocumented in this encounter Additional Health Concerns Infection Onset Date Last Indicated Resolved Time R/O COVID-19 05/15/2022 05/15/2022 05/20/2022 22:1 6 EDT R/O COVID-19 11/14/2022 11/14/2022 11/14/2022 19:1 6 EST documented as of this encounter Care Teams Field Aide Relationship Specialty Start Date End Date Jean Munoz MD [address] [place] [phone] PCP - General 12/31/08 Manny Rizzo MD [address] [place] [phone] 04/20/10 Afia Valle MD [address] [place] [address], [address] [place] [phone] Care Team Radiation Oncology 07/02/21 Jesi Leong [facility] [address] [place] [phone] Funeral Director/Embalmer 12/24/21 09/20/22 Jesi Leong BUILDING RENTAL SUPERINTENDENT [address] [place] [phone] Behavioral Health Funeral Director/EmbalmerProduction Cell Leader Care 10/19/22 01/23/24 documented as of this encounter
--- OUTSIDE RECORDS SUMMARY | 2024-06-10 07:39 | XMS_ITS | Encounter Summary ---
Author Organization [facility] Address [address] [place] [address] Care Team Providers Care Web Press Jogger Name Role Phone Unavailable Primary Care Provider Unavailabl e Encounter Details Date Type Department Care Team (Late st Contact Info) Description 08/26/2004 13:56 EST Hospital Encounter [facility] - Other [address] [place] [address] Jean Munoz MD [address] [place] [phone] Social History Tobacco Use Types Packs/Day [...] EDT Office Visit [facility] 3 [place] [address] Jean Munoz MD [address] [place] [phone] documented as of this encounter Visit Diagnoses Not on filedocumented in this encounter Additional Health Concerns Infection Onset Date Last Indicated Resolved Time R/O COVID-19 05/15/2022 05/15/202205/20/2022 22:1 6 EDT R/O COVID-19 11/14/2022 11/14/2022 11/14/2022 19:1 6 EST documented as of this encounter
--- OUTSIDE RECORDS SUMMARY | 2024-06-10 07:39 | XMS_ITS | Encounter Summary ---
Author Organization [facility] Address [address] [place] [address] Care Team Providers Care Laboratory Worker Name Role Phone Unavailable Primary Care Provider Unavailabl e Encounter Details Date Type Department Care Team (Late st Contact Info) Description 11/20/1999 9:10 EST - 11/20/1999 11:59 EST Hospital Encounter [facility] [address] [place] [address] Justus Herndon MD [address] [place] [phone] Unknown, MD Berta Discharge Disposition: Auto Discharge Social History Tobacco [...] 14:15 EDT Office Visit [facility] [address] [place], [place] [phone] Jean Munoz MD [address] [place] [phone] documented as of this encounter Procedures Procedure Name Priority Date/Time Associated Diagnosis Comments BACTERIAL CULTURE, URINE Routine 11/20/1999 16:30 EST documented in this encounter Results * BACTERIAL CULTURE, URINE (11/20/1999 16:30 EST) Specimen Description Urine [facility] Result 10,000 to 100,000 CFU/ml Mixed gram positive growth [facility] Report Status Final [id number] [facility] 11/20/1999 16:3 0 EST 11/20/1999 22:07 EST Justus Herndon MD MICROBIOLOGY - NERAL ORDERABLES [facility] [address] [place] [address] documented in this encounter Visit Diagnoses Not on filedocumented in this encounter
--- OUTSIDE RECORDS SUMMARY | 2024-06-10 07:39 | XMS_ITS | Encounter Summary ---
Author Organization [facility] Address [address] [place] [address] Care Team Providers Care Industrial Gas Servicer Helper Name Role Phone Unavailable Primary Care Provider Unavailabl e Encounter Details Date Type Department Care Team (Latest Contact Info) Description 01/31/2001 6:31 EDT - 01/31/2001 11:59 EDT Hospital Encounter [facility] [address] [place] [address] Jean Munoz MD [address] [place] [phone] Discharge Disposition: Auto Discharge Social History [...] Office Visit [facility] 3 [place] [address] Jean Munoz MD [address] [place] [phone] (work) documented as of this encounter Procedures Procedure Name Priority Date/Time Associated Diagnosis Comments MR EXTREMITY WRIST WO CONTRAST Routine 01/31/2001 7:34 EDT documented in this encounter Results * MR EXTREMITY WRIST WO CONTRAST (01/31/2001 7:34 EDT) Anatomical Region Laterality Modality Other 01/31/2001 7:34 EDT Impressions 07/24/2009 3:03 EST IMPRESSION: 1. Subacromial-subdeltoid bursitis. 2. Supraspinatus tendon bursal-sided tendinosis and/or mild partial tear. dw Narrative 07/24/2009 3:03 EST LEFT SHOULDER PAIN R/O ROTATOR CUFF TEAR MRI SCAN OF LEFT UPPER EXTREMITY JOINT: 01/31/01 TECHNIQUE: Coronal proton density, fat-suppressed T2, sagittal T1, and fat-suppressed T2, as well as axial proton density and fat-suppressed T2 weighted scans of the left shoulder were performed. FINDINGS: The acromioclavicular joint shows minimal arthritic change. There is increased T2 weighted signal within the subacromial subdeltoid space indicating bursitis. The bursal surface of the supraspinatus tendon is irregular and shows increased proton density and intermediate increased T2 weighted signal consistent with tendinosis versus mild bursal-sided partial tear. The articular surface of the supraspinatus tendon is intact. No full thickness supraspinatus tendon tear is seen. The infraspinatus tendon is intact. The subscapularis and teres minor tendons are also intact. The glenoid labrum and biceps tendon are intact. No muscle atrophy is seen. Procedure Note Lloyd Roland MD - 07/24/2009 LEFT SHOULDER PAIN R/O ROTATOR CUFF TEAR MRI SCAN OF LEFT UPPER EXTREMITY JOINT: 01/31/01 TECHNIQUE: Coronal proton density, fat-suppressed T2, sagittal T1, and fat-suppressed T2, as well as axial proton density and fat-suppressed T2 weighted scans of the left shoulder were performed. FINDINGS: The acromioclavicular joint shows minimal arthritic change. There is increased T2 weighted signal within the subacromial subdeltoid space indicating bursitis. The bursal surface of the supraspinatus tendon is irregular and shows increased proton density and intermediate increased T2 weighted signal consistent with tendinosis versus mild bursal-sided partial tear. The articular surface of the supraspinatus tendon is intact. No full thickness supraspinatus tendon tear is seen. The infraspinatus tendon is intact. The subscapularis and teres minor tendons are also intact. The glenoid labrum and biceps tendon are intact. No muscle atrophy is seen. IMPRESSION IMPRESSION: 1. Subacromial-subdeltoid bursitis. 2. Supraspinatus tendon bursal-sided tendinosis and/or mild partial tear. myrna Jean Munoz MD IMG MRI ORDERAB LES documented in this encounter Visit Diagnoses Not on filedocumented in this encounter
--- OUTSIDE RECORDS SUMMARY | 2024-06-10 07:39 | XMS_ITS | Encounter Summary ---
Author Organization [facility] Address [address] [place] [address] Care Team Providers Care Core Laying Machine Operator Name Role Phone Unavailable Primary Care Provider Unavailabl e Encounter Details Date Type Department Care Team (Late st Contact Info) Description 01/19/2001 16:32 EDT Hospital Encounter [facility] - Other [address] [place] [address] Marie Natarajan PA Unknown, Provider, Social History Tobacco Use Types [...] Info) Description 06/29/2024 14:15 EDT Office Visit [facility] 3 [place] [address] Jean Munoz MD [address] [place] [phone] documented as of this encounter Procedures Procedure Name Priority Date/Time Associated Diagnosis Comments BACTERIAL CULTURE, URINE Routine 01/19/2001 14:00 EDT documented in this encounter Results * BACTERIAL CULTURE, URINE (01/19/2001 14:00 EDT) Specimen Description Urine [facility] Result Greater than 100,000 CFU/ml LACTOBACILLU S SPECIES Less than 10,000 CFU/ml Mixed gram positive growth [facility] Report Status Final [id number] [facility] 01/19/2001 14:0 0 EDT 01/19/2001 17:04 EDT Marie GANDHI MICROBIOLOGY - GENER AL ORDERABLES [facility] [address] [place] [address] documented in this encounter Visit Diagnoses Not on filedocumented in this encounter Additional Health Concerns Infection Onset Date Last Indicated Resolved Time R/O COVID-19 05/15/2022 05/15/2022 05/20/2022 22:1 6 EDT R/O COVID-19 11/14/2022 11/14/2022 11/14/2022 19:1 6 EST documented as of this encounter
--- OUTSIDE RECORDS SUMMARY | 2024-06-10 07:39 | XMS_ITS | Encounter Summary ---
Author Organization [facility] Address [address] [place] [address] Care Team Providers Care Tumbler Operator Name Role Phone Unavailable Primary Care Provider Unavailabl e Encounter Details Date Type Department Care Team (Late st Contact Info) Description 02/17/2005 15:05 EDT Hospital Encounter [facility] - Other [address] [place] [address] Radha Noble PA-C [address] [facility] [address] [place] [phone] Social History Tobacco Use Types Packs/Day Years [...] or slept in a usp (including now)? Yes 07/15/2023 Interpersonal Safety Answer [...] Description 06/29/2024 14:15 EDT Office Visit [address] [address] Jean Munoz MD 3 [place] [phone] documented as of this encounter Visit Diagnoses Not on filedocumented in this encounter Additional Health Concerns Infection Onset Date Last Indicated Resolved Time R/O COVID-19 05/15/2022 05/15/2022 05/20/2022 22:1 6 EDT R/O COVID-19 11/14/2022 11/14/2022 11/14/2022 19:1 6 EST documented as of this encounter
--- OUTSIDE RECORDS SUMMARY | 2024-06-10 07:39 | XMS_ITS | Encounter Summary ---
Author Organization [facility] Address [address] [place] [address] Care Team Providers Care Charging Crane Operator Name Role Phone Unavailable Primary Care Provider Unavailabl e Encounter Details Date Type Department Care Team (Latest Contact Info) Description 11/01/2003 14:25 EST - 11/11/2003 11:59 EST Hospital Encounter [facility] [address] [place] [address] Juan Luis Mccollum MD [address] [place] [phone] Discharge Disposition: Auto Discharge Social History Tobacco [...] Office Visit [facility] 3 [place] [address] Jean Munoz MD [address] [place] [phone] documented as of this encounter Visit Diagnoses Not on filedocumented in this encounter
--- OUTSIDE RECORDS SUMMARY | 2024-06-10 07:39 | XMS_ITS | Encounter Summary ---
Author Organization [facility] Address [address] [place] [address] Care Team Providers Care Gripper Machine Operator Name Role Phone Jean Munoz MD Primary Care Provider Manny Rizzo MD Unavailable Encounter Details Date Type Department Care Team (Late st Contact Info) Description 04/28/2004 Results Only [address] [phone] Jean Munoz MD [address] [place] [phone] Social History Tobacco Use Types Packs/Day Years Used Date Smoking Tobacco: Never Assessed Sex and Gender Information Value Date Recorded Sex Assigned at Not on file Gender Identity Female 08/11/2019 16:07 EST Sexual Orientation Not on file documented as of this encounter Plan of Treatment Upcoming Encounters Date Type Department Care Team (Late st Contact Info) Description 06/29/2024 14:15 EDT Office Visit [address] [address] Jean Munoz MD [address] [place] [phone] documented as of this encounter Procedures Procedure Name Priority Date/Time Associated Diagnosis Comments COMPLETE BLOOD COUNT Routine 04/28/2004 13:51 EDT TSH Routine 04/28/2004 13:51 EDT MAGNESIUM Routine 04/28/2004 13:51 EDT COMPREHENSIVE METABOLIC PANEL (CMP) Routine 04/28/2004 13:51 EDT documented in this encounter Results * TSH (04/28/2004 13:51 EDT) TSH 2.44 0.35 - 5.50 uIU/ml [facility] 04/28/2004 13:5 1 EDT 04/28/2004 17:28 EDT Jean Munoz MD CHEMISTRY & BLO OD GAS ORDERABLES Performing Organization Address [facility] de Phone Number [facility] [address] [place] [address] * MAGNESIUM (04/28/2004 13:51 EDT) Magnesium 2.3 1.7 - 2.8 mg/dl [facility] 04/28/2004 13:5 1 EDT 04/28/2004 17:28 EDT Jean Munoz MD CHEMISTRY & BLO OD GAS ORDERABLES Performing Organization Address [facility] de Phone Number [facility] [address] [place] [address] * COMPREHENSIVE METABOLIC PANEL (04/28/2004 13:51 EDT) Potassium 4.0 3.5 - 5.0 mEq/L [facility] Sodium 142 136 - 145 mEq/L [facility] Chloride 109 96 - 110 mEq/L [facility] CO2 24 24 - 32 mEq/L [facility] Total Alkaline Phosphatase 72 38 - 126 U/L [facility] Bilirubin, Total <0.5 0.2 - 1.3 mg/dl [facility] AST 15 15 - 46 U/L [facility] ALT 13 9 - 52 U/L [facility] Albumin 4.2 3.4 - 4.9 g/dl [facility] Total Protein 7.1 6.5 - 8.0 g/dl [facility] Creatinine 0.8 0.7 - 1.5 mg/dl [facility] BUN 12 10 - 26 mg/dl [facility] Calcium 9.0 8.5 - 10.5 mg/dl [facility] Calculated Calcium 9.2 8.5 - 10.5 mg/dl [facility] Glucose, Serum 89 70 - 110 mg/dl [facility] Albumin/Globulin Ratio 1.4 [facility] 04/28/2004 13:5 1 EDT 04/28/2004 17:28 EDT Jean Munoz MD CHEMISTRY & BLO OD GAS ORDERABLES [facility] [address] [place] [address] * (ABNORMAL) HEMAGRAM (04/28/2004 13:51 EDT) WBC 8.91 4.0 - 12.4 K/cmm [facility] RBC 4.39 3.86 - 5.04 M/cmm [facility] Hemoglobin 14.8 11.6 - 15.2 gm/dl [facility] HCT 42.6 34.9 - 44.4 % [facility] MCV 97 81 - 98 fl [facility] MCH 33.8(H) 26.7 - 33.3 pg [facility] MCHC 34.8 32.1 - 35.9 gm/dl [facility] PLT 360(H) 141 - 320 K/cmm [facility] RDW-CV 12.7 11.7 - 14.6 % [facility] 04/28/2004 13:5 1 EDT 04/28/2004 17:28 EDT Jean Munoz MD HEMATOLOGY & PF 4 ORDERABLES Performing Organization Address City/State/[facility] Co de Phone Number [facility] [address] [place] [address] documented in this encounter Visit Diagnoses Not on filedocumented in this encounter Care Teams Gripper Machine Operator Relationship Specialty Start Date End Date Jean Munoz MD [address] [place] [phone] PCP - General 12/31/08 Manny Rizzo MD [address] [place] [phone] 04/20/10 documented as of this encounter
--- OUTSIDE RECORDS SUMMARY | 2024-06-10 07:39 | XMS_ITS | Encounter Summary ---
Author Organization [facility] Address [address] [place] [address] Care Team Providers Care Friend Of The Court Name Role Phone Unavailable Primary Care Provider Unavailabl e Encounter Details Date Type Department Care Team (Late st Contact Info) Description 04/28/2004 15:14 EDT Hospital Encounter [facility] - Other [address] [place] [address] Jean Munoz MD [address] [place] [phone] Social History Tobacco Use Types Packs/Day [...] [facility] 3 [place] [address] Jean Munoz MD [address] [place] [phone] documented as of this encounter Visit Diagnoses Not on filedocumented in this encounter Additional Health Concerns Infection Onset Date Last Indicated Resolved Time R/O COVID-19 05/15/2022 05/15/202205/2005/20/2022 22:1 6 EDT R/O COVID-19 11/14/2022 11/14/2022 11/14/2022 19:1 6 EST documented as of this encounter
--- OUTSIDE RECORDS SUMMARY | 2024-06-10 07:39 | XMS_ITS | Encounter Summary ---
Author Organization [facility] Address [address] [place] [address] Care Team Providers Care Automotive Service Cashier Name Role Phone Unavailable Primary Care Provider Unavailabl e Encounter Details Date Type Department Care Team (Late st Contact Info) Description 01/28/2005 9:13 EDT Hospital Encounter [facility] [address] [place] [address] Marie Natarajan PA Social History Tobacco Use [...] Office Visit [facility] [address] [place], [place] [phone] Jean Munoz MD [address] [place] [phone] documented as of this encounter Visit Diagnoses Not on filedocumented in this encounter Additional Health Concerns Infection Onset Date Last Indicated Resolved Time R/O COVID-19 05/15/2022 05/15/2022 05/20/2022 22:1 6 EDT R/O COVID-19 11/14/2022 11/14/2022 11/14/2022 19:1 6 EST documented as of this encounter
--- OUTSIDE RECORDS SUMMARY | 2024-06-10 07:39 | XMS_ITS | Encounter Summary ---
Author Organization [facility] Address [address] [place] [address] Care Team Providers Care Stack Yield Engineer Name Role Phone Unavailable Primary Care Provider Unavailabl e Encounter Details Date Type Department Care Team (Late st Contact Info) Description 01/19/2002 10:55 EDT Hospital Encounter [facility] [address] [place] [address] Cory Cuevas MD [address] [place] [phone] Social History Tobacco Use Types Packs/Day [...] Visit [facility] 3 [place] [address] Jean Munoz MD [address] [place] [phone] documented as of this encounter Visit Diagnoses Not on filedocumented in this encounter Additional Health Concerns Infection Onset Date Last Indicated Resolved Time R/O COVID-19 05/15/2022 05/15/2022 05/20/2022 22:1 6 EDT R/O COVID-19 11/14/2022 11/14/2022 11/14/2022 19:1 6 EST documented as of this encounter
--- OUTSIDE RECORDS SUMMARY | 2024-06-10 07:39 | XMS_ITS | Encounter Summary ---
Author Organization [facility] Address [address] [place] [address] Care Team Providers Care Professor Of Business Name Role Phone Moi Munoz MD Primary Care Provider Encounter Details Date Type Department Care Team (Late st Contact Info) Description 12/11/2003 Results Only [address] [address] Moi Munoz MD [address] [place] [phone] Social History Tobacco Use Types Packs/Day [...] Description 06/29/2024 14:15 EDT Office Visit [address] [address] Moi Munoz MD [address] [place] [phone] documented as of this encounter Procedures Procedure Name Priority Date/Time Associated Diagnosis Comments COMPLETE BLOOD COUNT Routine 12/11/2003 15:24 EST TSH Routine 12/11/2003 15:24 EST LH Routine 12/11/2003 15:24 EST FSH Routine 12/11/2003 15:24 EST LIPID PROFILE (INCLUDES CHOLESTEROL, TRIGLYCERIDES, HDL, LDL) Routine 12/11/2003 15:24 EST COMPREHENSIVE METABOLIC PANEL (CMP) Routine 12/11/2003 15:24 EST CYTOPATHOLOGY Routine 12/11/2003 0:00 EST documented in this encounter Results * TSH (12/11/2003 15:24 EST) TSH 2.75 0.35 - 5.50 uIU/ml [facility] 12/11/2003 15:2 4 EST 12/11/2003 20:05 EST Moi Munoz MD CHEMISTRY & BLO OD GAS ORDERABLES [facility] [address] [place] [address] * LIPID PROFILE (INCLUDES CHOLESTEROL, TRIGLYCERIDES, HDL, LDL) (12/11/2003 15:24 EST) Cholesterol 196 mg/dl [facility] Comment: Desirable:<200 Borderline:200-239 High Risk:>jx=556 Triglycerides 145 35 - 160 mg/dl [facility] HDL 48 mg/dl [facility] Comment: Highly Desirable:>60 Desirable:35-60 High Risk:<35 LDL, Calculated 119 mg/dl [facility] Comment: Desirable:<130 Borderline:130-159 High Risk:>ql=801 Chol/HDL Ratio 4.1 [facility] 12/11/2003 15:2 4 EST 12/11/2003 20:05 EST Moi Munoz MD CHEMISTRY & BLO OD GAS ORDERABLES Performing Organization Address [facility] de Phone Number [facility] [address] [place] [address] * LH (12/11/2003 15:24 EST) LH 14.2 mIU/ml [facility] Comment: Follicular: 1-18 Mid-Cycle Peak: 15-80 Luteal: 0.5-18 Postmenopausal: 12-55 12/11/2003 15:2 4 EST 12/11/2003 20:05 EST Moi Munoz MD CHEMISTRY & BLO OD GAS ORDERABLES Performing Organization Address [facility] de Phone Number [facility] [address] [place] [address] * FSH (12/11/2003 15:24 EST) FSH 12.7 mIU/ml [facility] Comment: Follicular: 2-11 Mid-Cycle Peak: 3.4-35 Luteal: 1-9 Postmenopausal: 25-120 12/11/2003 15:2 4 EST 12/11/2003 20:05 EST Moi Munoz MD CHEMISTRY & BLO OD GAS ORDERABLES Performing Organization Address [facility] de Phone Number [facility] [address] [place] [address] * (ABNORMAL) COMPREHENSIVE METABOLIC PANEL (12/11/2003 15:24 EST) Potassium 4.1 3.5 - 5.0 mEq/L [facility] Sodium 142 136 - 145 mEq/L [facility] Chloride 108 96 - 110 mEq/L [facility] CO2 25 24 - 32 mEq/L [facility] Total Alkaline Phosphatase 74 38 - 126 U/L [facility] Bilirubin, Total <0.5 0.2 - 1.3 mg/dl [facility] AST 17 15 - 46 U/L [facility] ALT 16 9 - 52 U/L [facility] Albumin 4.4 3.4 - 4.9 g/dl [facility] Total Protein 7.1 6.5 - 8.0 g/dl [facility] Creatinine 0.7 0.7 - 1.5 mg/dl [facility] BUN 9(L) 10 - 26 mg/dl [facility] Calcium 9.4 8.5 - 10.5 mg/dl [facility] Calculated Calcium 9.4 8.5 - 10.5 mg/dl [facility] Glucose, Serum 99 70 - 110 mg/dl [facility] Albumin/Globulin Ratio 1.6 [facility] 12/11/2003 15:2 4 EST 12/11/2003 20:05 EST Moi Munoz MD CHEMISTRY & BLO OD GAS ORDERABLES Performing Organization Address [facility] Co de Phone Number [facility] [address] [place] [address] * (ABNORMAL) HEMAGRAM (12/11/2003 15:24 EST) WBC 7.89 4.0 - 12.4 K/cmm [facility] RBC 4.26 3.86 - 5.04 M/cmm [facility] Hemoglobin 14.1 11.6 - 15.2 gm/dl [facility] HCT 42.0 34.9 - 44.4 % [facility] MCV 99(H) 81 - 98 fl [facility] MCH 33.1 26.7 - 33.3 pg [facility] MCHC 33.6 32.1 - 35.9 gm/dl [facility] PLT 362(H) 141 - 320 K/cmm [facility] RDW-CV 13.8 11.7 - 14.6 % [facility] 12/11/2003 15:2 4 EST 12/11/2003 20:05 EST Moi Munoz MD HEMATOLOGY & PF 4 ORDERABLES Performing Organization Address [facility] Co de Phone Number [facility] [address] [place] [address] * CYTOPATHOLOGY (12/11/2003 0:00 EST) Pathology Report: CYTOPATHOLOGY REPORT Reports generated via electronic interface contain original data; however they are lacking the format of the original report. Caution should be taken when reading/interpreti ng unformatted reports. Name: ? MARIA DEL ROSARIO MEADOWS ? Accession #: ? [id number] : ? 1960 (Age: 42) ??F ?Collect Date: ? 12/11/2003 Location: ? [facility] ? Receive Date: ? 12/12/2003 Provider: ?MOI MUNOZ MD Copy to: ? Specimen/Source: ?ThinPrep Pap Test, Vagina Last Menstrual Period: ? Treatment History: ? Hysterectomy ? SPECIMEN ADEQUACY ? Satisfactory for Evaluation - transformation zone component present GENERAL CATEGORIZATION ? Negative for Intraepithelial Lesion or Malignancy INTERPRETATION ? Glandular cells present status post hysterectomy. Shift in tasneem present suggestive of bacterial vaginosis. ? Document reviewed and electronically signed by: ? TERRY PULIDO MD ? Report Date: ??12/19/2003 09:22 End of Report [facility] 12/11/2003 12/12/2003 Moi Munoz MD PATHOLOGY ORDER KATHI [facility] [address] [place] [address] documented in this encounter Visit Diagnoses Not on filedocumented in this encounter Care Teams Professor Of Business Relationship Specialty Start Date End Date Moi Munoz MD [address] [place] [phone] PCP - General 12/31/08 documented as of this encounter
--- OUTSIDE RECORDS SUMMARY | 2024-06-10 07:39 | XMS_ITS | Encounter Summary ---
Author Organization [facility] Address [address] [place] [address] Care Team Providers Care Shop Cooper Name Role Phone Jean Munoz MD Primary Care Provider Encounter Details Date Type Department Care Team (Late st Contact Info) Description 08/24/2001 Results Only [facility] - [address] [address] Avni Wilburn Jr., ADVERTISING SALES CONSULTANT Social History Tobacco Use Types Packs/Day Years [...] 14:15 EDT Office Visit [facility] Family Medicine [facility] [address] [place], [place] [id number] Jean Munoz MD [address] [place] [phone] documented as of this encounter Procedures Procedure Name Priority Date/Time Associated Diagnosis Comments GROUP A STREP CULTURE Routine 08/24/2001 11:39 EST documented in this encounter Results * CULTURE FOR GROUP A BETA STREPTOCOCCUS (08/24/2001 11:39 EST) Specimen Description Throat [facility] Result NO GROUP A BETA STREPTOCOCCI ISOLATED [facility] Report Status Final [id number] [facility] 08/24/2001 11:3 9 EST 08/24/2001 17:33 EST Avni Wilburn Jr., [facility] - GENERAL ORDERABLES [facility] [address] [place] [address] documented in this encounter Visit Diagnoses Not on filedocumented in this encounter Care Teams Shop Cooper Relationship Specialty Start Date End Date Jean Munoz MD [address] [place] [phone] PCP - General 12/31/08 documented as of this encounter
--- OUTSIDE RECORDS SUMMARY | 2024-06-10 07:39 | XMS_ITS | Encounter Summary ---
Author Organization [facility] Address [address] [place] [address] Care Team Providers Care Overhead Crane Inspector Name Role Phone Unavailable Primary Care Provider Unavailabl e Encounter Details Date Type Department Care Team (Late st Contact Info) Description 05/27/2005 19:15 EDT Hospital Encounter [facility] - Other [address] [place] [address] Jean Munoz MD [address] [place] [phone] Social History Tobacco Use Types Packs/Day [...] Office Visit [facility] [address] [place] [address] Jean Munoz MD [address] [place] [address] documented as of this encounter Procedures Procedure Name Priority Date/Time Associated Diagnosis Comments HELICOBACTER PYLORI Routine 05/27/2005 1 4:22 EDT COMPLETE BLOOD COUNT AND DIFFERENTIAL Routine 05/27/2005 14:22 EDT LIPASE Routine 05/27/2005 14:22 EDT COMPREHENSIVE METABOLIC PANEL (CMP) Routine 05/27/2005 14:22 EDT documented in this encounter Results * LIPASE (05/27/2005 14:22 EDT) Lipase 133 0 - 250 U/L [facility] 05/27/2005 14:2 2 EDT 05/27/2005 18:20 EDT Jean Munoz MD CHEMISTRY & BLO OD GAS ORDERABLES Performing Organization Address [facility] Co de Phone Number [facility] [address] [place] [address] * HELICOBACTER PYLORI (05/27/2005 14:22 EDT) Pathologist [facility] H Pylori IgG 0.23 EIA Value [facility] Comment: <0.91 = Negative 0.91 - 1.09 ??= Equivocal >1.09 = Positive. 05/27/2005 14:2 2 EDT 05/27/2005 18:20 EDT Jean Munoz MD HISTORICAL LAB FOR SQ LOAD Performing Organization Address [facility] de Phone Number [facility] [address] [place] [address] * (ABNORMAL) COMPREHENSIVE METABOLIC PANEL (05/27/2005 14:22 EDT) Potassium 4.0 3.5 - 5.0 mEq/L [facility] Sodium 142 136 - 145 mEq/L [facility] Chloride 109 96 - 110 mEq/L [facility] CO2 22(L) 24 - 32 mEq/L [facility] Total Alkaline Phosphatase 86 38 - 126 U/L [facility] Bilirubin, Total <0.5 0.2 - 1.3 mg/dl [facility] AST 20 15 - 46 U/L [facility] ALT 25 9 - 52 U/L [facility] Albumin 4.3 3.4 - 4.9 g/dl [facility] Total Protein 7.3 6.5 - 8.3 g/dl [facility] Creatinine 0.7 0.7 - 1.5 mg/dl [facility] BUN 9(L) 10 - 26 mg/dl [facility] Calcium 9.7 8.5 - 10.5 mg/dl [facility] Calculated Calcium 9.8 8.5 - 10.5 mg/dl [facility] Glucose, Serum 87 70 - 110 mg/dl [facility] Fasting? No [facility] Albumin/Globulin Ratio 1.4 [facility] 05/27/2005 14:2 2 EDT 05/27/2005 18:20 EDT Jean Munoz MD CHEMISTRY & BLO OD GAS ORDERABLES Performing Organization Address City/State/[facility] Co de Phone Number [facility] [address] [place] [address] * (ABNORMAL) HEMAGRAM AND DIFFERENTIAL (05/27/2005 14:22 EDT) WBC 9.07 4.0 - 12.4 K/cmm [facility] RBC 4.23 3.86 - 5.04 M/cmm [facility] Hemoglobin 14.4 11.6 - 15.2 gm/dl [facility] HCT 41.6 34.9 - 44.4 % [facility] MCV 98 81 - 98 fl [facility] MCH 34.1(H) 26.7 - 33.3 pg [facility] MCHC 34.6 32.1 - 35.9 gm/dl [facility] PLT 417(H) 141 - 320 K/cmm [facility] RDW-CV 13.5 11.7 - 14.6 % [facility] % Neutrophils 50.8 45.5 - 79.7 % [facility] % Lymphocytes 33.9 15.0 - 46.8 % [facility] % Monocytes 7.6 1.8 - 12.0 % [facility] % Eosinophils 7.3(H) 0.6 - 6.9 % [facility] % Basophils 0.4 0.2 - 1.4 % [facility] ABS Neutrophils 4.60 2.20 - 8.85 K/cmm [facility] ABS Lymphs 3.07 1.09 - 3.30 K/cmm [facility] ABS Monocytes 0.69 0.1 - 0.8 K/cmm [facility] ABS Eosinophils 0.66(H) 0.03 - 0.61 K/cmm [facility] ABS Basophils 0.04 0.01 - 0.11 K/cmm [facility] Type of Diff: Automated [facility] 05/27/2005 14:2 2 EDT 05/27/2005 18:20 EDT Jean Munoz MD PACKAGES & DNA PROBE ORDERABLES Performing Organization Address City/State/[facility] Co de Phone Number [facility] [address] [place] [address] documented in this encounter Visit Diagnoses Not on filedocumented in this encounter Additional Health Concerns Infection Onset Date Last Indicated Resolved Time R/O COVID-19 05/15/2022 05/15/2022 05/20/2022 22:1 6 EDT R/O COVID-19 11/14/2022 11/14/2022 11/14/2022 19:1 6 EST documented as of this encounter
--- OUTSIDE RECORDS SUMMARY | 2024-06-10 07:40 | XMS_ITS | Encounter Summary ---
Author Organization [facility] Address [facility] [place] [address] Care Team Providers Care Semiconductor Dies Loader Name Role Phone Shaista Zelaya APRN Primary Care Provider [phone] Reason for Referral * Consultation (Routine) - Authorized Specialty Diagnoses / Procedures Referred By Alex weldon Referred To Contact Hematology and Oncology Diagnoses Primary cancer of right upper lobe of lung Shaista Zelaya APRN [address] [place] [address] [facility] Hem Onc Office [address] [place] [phone] Referral ID Status Reason Start Date Expiration Date Visits Requested Visits Authorized [id number] Authorized Consult, Test & Treat PCP Updated and/or Approved 05/25/2024 05/25/2025 6 6 Encounter Details Date Type Department Care Team (Latest Contact Info) Description 05/25/2024 Transcribe Orders eDH Incoming Referrals [phone] Shaista Zelaya APRN [address] [place], [place] [phone] Primary cancer of right upper lobe of lung Social History Tobacco Use Types Packs/Day Years Used Date Smoking Tobacco: Never Assessed Sex and Gender Information Value Date Recorded Sex Assigned at Not on file Gender Identity Not on file Sexual Orientation Not on file documented as of this encounter Plan of Treatment Scheduled Referrals Name Type Priority Associated Diagnoses Order Schedule Referral to Hematology and Oncology Outpatient Referral Routine Primary cancer of right upper lobe of lung Ordered: 05/25/2024 documented as of this encounter Visit Diagnoses Diagnosis Primary cancer of right upper lobe of lung documented in this encounter Care Teams Semiconductor Dies Loader Relationship Specialty Start Date End Date Shaista Zelaya, DANIELLE [address] [place] [address] PCP - General Family Medicine 05/25/24 documented as of this encounter
--- OUTSIDE RECORDS SUMMARY | 2024-06-10 07:40 | XMS_ITS | Encounter Summary ---
Author Organization [facility] [place] [address] Care Team Providers Care Maintenance Aide Name Role Phone Shaista Zelaya APRN Primary Care Provider Encounter Details Date Type Department Care Team (Late st Contact Info) Description 05/25/2024 Abstract [place] [phone] Violeta Zarco Social History Tobacco Use Types Packs/Day Years Used Date Smoking Tobacco: Never Assessed Sex and Gender Information Value Date Recorded Sex Assigned at Not on file Gender Identity Not on file Sexual Orientation Not on file documented as of this encounter Plan of Treatment Not on file documented as of this encounter Visit Diagnoses Not on filedocumented in this encounter Care Teams Maintenance Aide Relationship Specialty Start Date End Date Shaista Zelaya APRN [address] [place] [address] PCP - General Family Medicine 05/25/24 documented as of this encounter
--- OUTSIDE RECORDS SUMMARY | 2024-06-10 07:40 | XMS_ITS | Clinical Summary ---
Author Organization [facility] Address [facility] [address] Care Team Providers Care Cook Relief Name Role Phone Shaista Zelaya APRN Primary Care Provider [phone] Encounters Date Type Department Care Team Description 05/25/2024 Abstract Hematology and Oncology at [facility] [place] [address] Violeta Zarco 05/25/2024 Transcribe Orders eDH Incoming Referrals [phone] Shaista Zelaya, DANIELLE Primary cancer of right upper lobe of lung from Last 3 Months Social History Tobacco Use Types Packs/Day Years Used Date Smoking Tobacco: Never Assessed Sex and Gender Information Value Date Recorded Sex Assigned at Not on file Gender Identity Not on file Sexual Orientation Not on file Plan of Treatment Health Maintenance Due Date Last Done Comments CT Colonography 1960 Colonoscopy 1960 Colorectal Cancer Screening 1960 FIT DNA 1960 FIT 1960 Sigmoidoscopy (10 year) with FIT yearly 1960 Sigmoidoscopy 1960 HIV screen 1976 Hepatitis C Screening 1976 Tetanus/Diphtheria/Pertussis Vaccines (1 - Tdap) 1977 HPV test 1988 PAP Smear 1988 Breast Cancer Share Decision Needed 1998 Breast Cancer screening 1998 Zoster vaccine (1 of 2) 2008 Advance Directive 2013 Bone Density Scan 12/30/2023 Pneumoccocal Vaccine: 65+ (1 of 1 - PCV) 12/30/2023 Covid-19 Vaccine (3 - 2022- season) 05/14/202410/2022, 01/26/2021 Influenza (Flu) vaccine (1 o f 1 - Influenza standard series) 05/14/2024 Procedures Procedure Name Priority Date/Time Associated Diagnosis Comments LAB SCAN 05/25/2024 12:[address] SCAN (SCAN) 04/05/2024 12:00 AM EDT DIAGNOSTIC RADIOLOGY SCAN 04/05/2024 12:00 AM EDT from Last 3 Months Results * Scan Doc: Lab (05/25/2024 12:00 AM EDT) Narrative 05/25/2024 12:00 AM EDT Ordered by an unspecified provider. Scanning Provider MEDIA MGR SCAN EXT O RDR/RSLT * Scan Doc: CT Scan (04/05/2024 12:00 AM EDT) Anatomical Region Laterality Modality Other Narrative 04/05/2024 12:00 AM EDT Ordered by an unspecified provider. Scanning Provider MEDIA MGR SCAN EXT O RDR/RSLT * Scan Doc: Diagnostic Radiology (04/05/2024 12:00 AM EDT) Anatomical Region Laterality Modality Other Narrative 04/05/2024 12:00 AM EDT Ordered by an unspecified provider. Scanning Provider MEDIA MGR SCAN EXT O RDR/RSLT from Last 3 Months Care Teams Cook Relief Relationship Specialty Start Date End Date Shaista Zelaya, DANIELLE [address] [place] [address] PCP - General Family Medicine 05/25/24
[2024-06-10 07:55] LABS: ALT 15 U/L (14-59); AST 10 U/L (15-37); Alkaline Phosphatase 101 U/L (46-116); Anion Gap 8.6 mmol/L (3-11); BUN 7 mg/dL (7-18); CO2 24.4 mmol/L (21.0-32.0); CREATININE 0.7 mg/dL (0.55-1.02); Calcium 8.7 mg/dL (8.5-10.1); Chloride 107 mmol/L (98-107); Estimated GFR 95.92 (mL/min/1.73m2); Glucose 119 mg/dL (74-106); Magnesium 1.9 mg/dL (1.8-2.4); Potassium 3.3 mmol/L (3.5-5.1); Sodium 140 mmol/L (136-145)
[2024-06-10 08:18] LABS: Procalcitonin < 0.1 ng/mL
[2024-06-10 08:24] LABS: COVID-19 PCR Negative (Negative); Influenza A PCR Negative (Negative); Influenza B PCR Negative (Negative); RSV PCR Negative (Negative)
[2024-06-10 08:35] LABS: Source Nasopharynx
--- NOTE | 2024-06-10 09:27 | DI.VRAD_ITS ---
PROCEDURE INFORMATION: Exam: XR Chest Exam date and time: 06/10/2024 8:10 AM Age: 63 years old Clinical indication: Other: SOB TECHNIQUE: Imaging protocol: Radiologic exam of the chest. Views: 2 views. COMPARISON: 1. CR XR ABD FLAT UPRIGHT PA CHEST 04/05/2024 6:[address] CHEST/ABD/PEL W 02/17/2024 1:00 PM FINDINGS: Lungs: Similar appearing pleural-based consolidative masslike opacity at the right lung apex, which on CT of 02/17/2024 was described as being concerning possible neoplastic process. Lungs otherwise clear. Pleural spaces: Unremarkable. No pleural effusion. No pneumothorax. Heart/Mediastinum: Unremarkable. No cardiomegaly. Bones/joints: ACDF hardware projects over the lower cervical spine. IMPRESSION: Similar appearing pleural-based consolidative masslike opacity at the right lung apex, which on CT of 02/17/2024 was described as being concerning possible neoplastic process. Recommend clinical assessment and follow-up. Dictated and Authenticated by: Aleyda Gant MD. Ordering:LAN Scott MD
== END 2024-06-10 08:55 | disposition home or self-care (01) ==
PROVIDERS: Emergency Provider Emergency Medicine; PCP Family Medicine
DX: J44.1 Chronic obstructive pulmonary disease with (acute) exacerbation (principal); K21.9 Gastro-esophageal reflux disease without esophagitis; M54.9 Dorsalgia, unspecified; G89.29 Other chronic pain; J45.909 Unspecified asthma, uncomplicated; G47.33 Obstructive sleep apnea (adult) (pediatric)
CPT/HCPCS: 36415; 80053; 82805; 84145; 87637; 93005; 94640; 99285; 71046; 83735; 85025; 93010; 99284; J7512; J7620

== ENCOUNTER 2024-08-18 12:17 | Observation (INO) | payer MEDICARE, MEDICAID, SELFPAY ==
[2024-08-18] VITALS (8 sets, daily range): BP systolic 102–128; BP diastolic 62–75; PULSE 77–92; RESP 16–20; TEMP 36.3–37.5; O2SAT 97–100
[2024-08-18 13:24] LABS: Abs Immature Grans 0.04 10^3/uL (0.0-0.06); Absolute Basophil Count 0.04 10^3/uL (0.0-0.2); Absolute Eosinophil Count 0.28 10^3/uL (0.0-0.7); Absolute Lymphocyte Count 1.05 10^3/uL (1.2-3.4); Absolute Monocyte Count 0.84 10^3/uL (0.1-0.8); Basophils % 0.4 %; Eosinophils % 2.6 %; HCT 35.1 % (36.0-46.0); HGB 11.6 g/dL (11.2-15.7); Immature Grans % 0.4 %; Lymphocytes % 9.9 %; MCH 31.1 pg (27.0-33.0); MCV 94 fL (80-95); MPV 8.7 fL (8.0-11.0); Monocytes % 7.9 %; Neutrophils % 78.8 %; Platelet Count 313 10^3/uL (130-400); RBC 3.73 10^6/uL (3.93-5.22); RDW 13.6 % (11.7-14.6); RDW-SD 47.2 fL; WBC 10.65 10^3/uL (4.4-10.8)
[2024-08-18 13:33] LABS: ESR 27 mm/hr (0-30)
[2024-08-18 13:40] LABS: ALT 12 U/L (14-59); AST < 5 U/L (15-37); Albumin 2.8 g/dL (3.4-5.0); Alkaline Phosphatase 81 U/L (46-116); Anion Gap 12.1 mmol/L (3-11); BUN 12 mg/dL (7-18); Bilirubin, Total 0.34 mg/dL (0.2-1.0); C-Reactive Protein 6.46 mg/dL (<or=0.5); CO2 21.9 mmol/L (21.0-32.0); CREATININE 0.7 mg/dL (0.55-1.02); Chloride 112 mmol/L (98-107); Estimated GFR 95.92 (mL/min/1.73m2); Glucose 128 mg/dL (74-106); Potassium 3.5 mmol/L (3.5-5.1); Sodium 146 mmol/L (136-145); Total Protein 6.5 g/dL (6.4-8.2)
[2024-08-18] MEDS: Omnipaque 350 MG/ML 100 ML BTL 75 ML IJ (14:22)
[2024-08-18] MEDS: Normal Saline - Diluent 50 ML VIAL IJ (14:23)
--- NOTE | 2024-08-18 14:30 | DI.CT_ITS ---
Exam(s) CT PELVIC W EXAM: CT PELVIC W CLINICAL HISTORY: PERINEAL INFECTION TECHNIQUE: Imaging Protocol: Axial computed tomography images with coronal and sagittal reformatted images were created and reviewed CONTRAST MATERIAL: Intravenous: Omnipaque 350 Contrast volume:75 mL Oral: No COMPARISON: CT CT ABDOMEN PELVIS W from 04/05/2024 FINDINGS: PELVIS: Abdominal Aorta: Abdominal portion non-dilated. Atherosclerotic calcification is present. Bowel: There is diverticulosis seen in the colon but no evidence of acute diverticulitis. The visual ized bowel shows no evidence of wall thickening or obstruction. No findings of appendicitis. Peritoneal Cavity: No ascites, collection or mesenteric inflammatory response. No pneumoperitoneum. Soft Tissues: There is skin thickening and edema in the subcutaneous tissues along the right gluteal fold and right perianal soft tissues. No wall enhancing fluid collection is seen to suggest an absce ss. The findings are most suggestive of a cellulitis. Bladder: Symmetric distention, no gross wall thickening. Reproductive Organs: Status post hysterectomy. Lymph Nodes: Within normal limits. Bones: Within normal limits. IMPRESSION: Skin thickening and subcutaneous edema along the right gluteal fold right perianal soft tissues most suggestive of a cellulitis. No drainable fluid collection is seen to suggest an abscess at this time . RADIATION DOSE DELIVERED: 227.93mGy.cm Total DLP 227.93mGy.cm Total DLP DATA REPOSITORY: All CT scans at this facility are submitted to the National Radiology Data Registry (NRDR) Dose Index Registry (DIR) with the [employer] (ACR). RADIATION OPTIMIZATION: All CT scans at this facility use at least one of these dose optimization te chniques: automated exposure control; mA and/or kV adjustment per patient size (includes targeted exa ms where dose is matched to clinical indication); or iterative reconstruction.
--- NOTE | 2024-08-18 14:38 | ED.GENADUL_ITS ---
Discharge Plan Disposition Patient Disposition: Admit to [facility] Condition: Fair Discharge Details Chief Complaint: Cellulitis Clinical Impression: Abscess Primary Care Provider: Manjeet Lynne ED Provider: Paulo Cosby Home Meds and New Rx's Prescriptions: No Action Incruse Ellipta 62.5 mcg/actuation blister with device 1 inh inhalation DAILY Qty: 30 12RF benzonatate 100 mg capsule 100 mg PO TID Qty: 90 6RF fluticasone propion-salmeterol [Advair HFA] 115-21 mcg/actuation HFA aerosol inhaler 2 puff inhalation BID Qty: 12 12RF Rx Instructions: administer with spacer methylphenidate HCl 10 mg tablet 10 mg PO QPM Patient Comments: hydrocodone-acetaminophen 7.5-325 mg tablet 1 tab PO Q6H PRN (Reason: pain) methocarbamol 500 mg tablet 1,000 mg PO HS Patient Comments: TAKE TWO TABLETS BY MOUTH DAILY AT 9PM AT BEDTIME zolpidem 5 mg tablet 5 mg PO QHS buspirone 15 mg tablet 15 mg PO .COMPLEX Rx Instructions: 15 mg orally QD-TID; ondansetron HCl 4 mg tablet 4 mg PO Q8H PRN (Reason: nausea) promethazine 25 mg tablet 25 mg PO Q6H PRN (Reason: nausea) sumatriptan succinate 100 mg tablet 100 mg PO ONCE PRN (Reason: migraine headache) levalbuterol tartrate 45 mcg/actuation HFA aerosol inhaler 2 inh INHALATION Q4H PRN (Reason: shortness of breath or wheezing) ipratropium-albuterol 0.5 mg-3 mg(2.5 mg base)/3 mL solution for nebulization 3 ml inhalation [facility]H [facility] .Route Rx Instructions: Check blood glucose 2x daily Spiriva Respimat 2.5 mcg/actuation mist 2 puff inhalation BID budesonide-formoterol [Symbicort] 80-4.5 mcg/actuation HFA aerosol inhaler 2 puff inhalation BID (DME) OneTouch Ultra Test Strip See Rx Instructions .Route Rx Instructions: Test blood glucose 2x daily methylphenidate HCl 20 mg tablet 40 mg PO DAILY montelukast 10 mg tablet 10 mg PO DAILY pregabalin 300 mg capsule 300 mg PO BID Patient Comments: TAKE ONE CAPSULE BY MOUTH TWICE DAILY DAILY MAX 2 CAPSULES ropinirole 2 mg tablet 2 mg PO HS Patient Comments: TAKE ONE TABLET BY MOUTH DAILY AT 9PM AT BEDTIME lidocaine HCl [Lidocaine Viscous] 2 % solution 1 applic mucous membrane .q6 prn Patient Comments: MIX 5 MLS LIDOCAINE WITH 5 MLS MYLANTA OR MAALOX, SWISH AND SWALLOW FOR SWALLOWING PAIN EVERY 6 HOURS NEEDED duloxetine 60 mg capsule,delayed release(DR/EC) 120 mg PO DAILY (DME) OneTouch Ultra Test Strip MISCELLANEOUS Patient Comments: USE TO TEST TWO TIMES A DAY omeprazole 40 mg capsule,delayed release(DR/EC) 40 mg PO DAILY Patient Comments: TAKE ONE CAPSULE BY MOUTH EVERY DAY Spiriva Respimat 2.5 mcg/actuation mist 2 inh INHALATION DAILY Patient Comments: INHALE 2 PUFFS DIRECTED DAILY doxycycline hyclate 100 mg capsule 100 mg PO DAILY benzonatate 150 mg capsule 150 mg PO TID PRN (Reason: cough) Qty: 30 0RF azithromycin [Zithromax Z-Narendra] 250 mg tablet See Rx Instructions .ROUTE .COMPLEX Qty: 6 0RF Rx Instructions: For 250 mg dose pack: take 500 mg today (day 1), then 250 mg for 4 days (days 2-5) HPI General Date/Time Provider Initiated Documentation: 08/18/24 12:38 . Limitations to Documentation: no limitations . Information obtained by: patient . HPI Narrative: 63-year-old female with past medical history including tobacco dependence, COPD presents for evaluation of swelling and pain in her groin. She reports that a few days ago she started noticing the swelling and pain on the right side in her groin area next to her vagina. It is gotten significantly worse and it is very painful. She reports subjective fever and chills at home. She states that she noted today it started draining. Related Data Home Medications ?Medication ?Instructions ?Recorded ?Confirmed blood sugar diagnostic (OneTouch 02/17/24 08/18/24 Ultra Test strips) doxycycline hyclate 100 mg capsule 100 mg PO DAILY 02/17/24 06/10/24 duloxetine 60 mg capsule,delayed 120 mg PO DAILY 02/17/24 08/18/24 release lidocaine HCl 2 % mucosal solution 1 applic mucous membrane .q6 prn 02/17/24 08/18/24 (Lidocaine Viscous) methylphenidate HCl 20 mg tablet 40 mg PO DAILY 02/17/24 08/18/24 montelukast 10 mg tablet 10 mg PO DAILY Allergies 02/17/24 08/18/24 omeprazole 40 mg capsule,delayed 40 mg PO DAILY 02/17/24 08/18/24 release pregabalin 300 mg capsule 300 mg PO BID 02/17/24 08/18/24 ropinirole 2 mg tablet 2 mg PO HS 02/17/24 08/18/24 tiotropium bromide 2.5 2 inh inhalation DAILY 02/17/24 08/18/24 mcg/actuation mist for inhalation (Spiriva Respimat) benzonatate 150 mg capsule 150 mg PO TID PRN cough #30 caps 02/23/24 06/10/24 benzonatate 100 mg capsule 100 mg PO TID #90 caps 03/20/24 06/10/24 fluticasone propionate 115 2 puff inhalation BID #12 grams 03/20/24 08/18/24 mcg-salmeterol 21 mcg/actuation HFA inhaler (Advair HFA) umeclidinium 62.5 mcg/actuation 1 inh inhalation DAILY #30 ea 03/20/24 08/18/24 blister powder for inhalation (Incruse Ellipta) blood sugar diagnostic (OneTouch 05/03/24 08/18/24 Ultra Test strips) budesonide-formoterol HFA 80 2 puff inhalation BID 05/03/24 08/18/24 mcg-4.5 mcg/actuation aerosol inhaler (Symbicort) buspirone 15 mg tablet 15 mg PO .COMPLEX 05/03/24 08/18/24 hydrocodone 7.5 mg-acetaminophen 1 tab PO Q6H PRN pain 05/03/24 08/18/24 325 mg tablet ipratropium 0.5 mg-albuterol 3 mg 3 ml inhalation Q4H PRN 05/03/24 08/18/24 (2.5 mg base)/3 mL nebulization soln lancets 05/03/24 08/18/24 levalbuterol tartrate 45 2 inh inhalation Q4H PRN shortness 05/03/24 08/18/24 mcg/actuation aerosol inhaler of breath or wheezing methocarbamol 500 mg tablet 1,000 mg PO HS 05/03/24 08/18/24 methylphenidate HCl 10 mg tablet 10 mg PO QPM 05/03/24 08/18/24 ondansetron HCl 4 mg tablet 4 mg PO Q8H PRN nausea 05/03/24 08/18/24 promethazine 25 mg tablet 25 mg PO Q6H PRN nausea 05/03/24 08/18/24 sumatriptan succinate 100 mg tablet 100 mg PO ONCE PRN migraine 05/03/24 08/18/24 headache tiotropium bromide 2.5 2 puff inhalation BID 05/03/24 08/18/24 mcg/actuation mist for inhalation (Spiriva Respimat) zolpidem 5 mg tablet 5 mg PO QHS 05/03/24 08/18/24 azithromycin 250 mg tablet See Rx Instructions PO .COMPLEX #6 06/10/24 (Zithromax Z-Narendra) tabs Previous Rx's ?Medication ?Instructions ?Recorded benzonatate 150 mg capsule 150 mg PO TID PRN cough #30 caps 02/23/24 benzonatate 100 mg capsule 100 mg PO TID #90 caps 03/20/24 fluticasone propionate 115 2 puff inhalation BID #12 grams 03/20/24 mcg-salmeterol 21 mcg/actuation HFA inhaler (Advair HFA) umeclidinium 62.5 mcg/actuation 1 inh inhalation DAILY #30 ea 03/20/24 blister powder for inhalation (Incruse Ellipta) azithromycin 250 mg tablet See Rx Instructions PO .COMPLEX #6 06/10/24 (Zithromax Z-Narendra) tabs Allergies Allergy/AdvReac Type Severity Reaction Status Date / Time ketorolac (From Toradol) Allergy Severe Anaphylaxis Verified 08/18/24 12:22 ibuprofen (From Motrin) Allergy Intermediate Itching Verified 08/18/24 12:22 General Stated Complaint: Cellulitis DMITRI: 3 Exam Narrative Exam Narrative: Review of Systems: All systems reviewed & are unremarkable except as noted in HPI and below Well-developed, appears uncomfortable Afebrile NCAT RRR Unlabored respiratory effort Nondistended abdomen, soft nontender examination reveals a area of tenderness and swelling at the base of the labia majora on the right, at the level of the vaginal introitus there is not an anterior swelling consistent with a Bartholin's gland, there is tenderness along the gluteal cleft, no appreciable JENNIFER anal tenderness or change No active drainage that I can appreciate, unable to really differentiate color change, but is significantly tender. Course Vital Signs Vital signs: Vital Signs Temperature 36.3 C L 08/18/24 12:20 Pulse 92 H 08/18/24 12:20 Respiratory Rate 18 08/18/24 12:20 Blood Pressure 119/75 08/18/24 12:20 Pulse Oximetry 98 08/18/24 12:20 Temperature 36.3 C L 08/18/24 12:20 Temperature Source Oral 08/18/24 12:20 Pulse 77 08/18/24 14:14 Respiratory Rate 16 08/18/24 14:14 Respiratory Effort Normal, Non-Labored 08/18/24 14:01 Blood Pressure 102/70 08/18/24 14:14 Blood Pressure Position Sitting 08/18/24 12:20 Pulse Oximetry 98 08/18/24 14:14 Oxygen Delivery Method Room Air 08/18/24 14:14 Oxygen Flow Rate 0 08/18/24 14:14 Pain Level 9 08/18/24 14:01 Lab/Test Results Lab/Test Results: Laboratory Tests Range/Units 08/18/24 13:13 WBC (4.4-10.8) 10^3/uL 10.65 RBC (3.93-5.22) 10^6/uL 3.73 L Hgb (11.2-15.7) g/dL 11.6 Hct (36.0-46.0) % 35.1 L MCV (80-95) fL 94 MCH (27.0-33.0) pg 31.1 MCHC (32.0-36.0) % 33.0 RDW (11.7-14.6) % 13.6 Plt Count (130-400) 10^3/uL 313 MPV (8.0-11.0) fL 8.7 Immature Gran % % 0.4 Neutrophils % % 78.8 Lymphocytes % % 9.9 Monocytes % % 7.9 Eosinophils % % 2.6 Basophils % % 0.4 Nucleated RBC % (0.0-0.3) % 0.0 Absolute Neutrophils (1.2-6.7) 10^3/uL 8.40 H Absolute Lymphocytes (1.2-3.4) 10^3/uL 1.05 L Absolute Monocytes (0.1-0.8) 10^3/uL 0.84 H Absolute Eosinophils (0.0-0.7) 10^3/uL 0.28 Absolute Basophils (0.0-0.2) 10^3/uL 0.04 ESR (0-30) mm/hr 27 Sodium (136-145) mmol/L 146 H Potassium (3.5-5.1) mmol/L 3.5 Chloride (98-107) mmol/L 112 H Carbon Dioxide (21.0-32.0) mmol/L 21.9 Anion Gap (3-11) mmol/L 12.1 H BUN (7-18) mg/dL 12 Creatinine (0.55-1.02) mg/dL 0.7 Est GFR (CKD-EPI 2020) (mL/min/1.73m2) 95.92 Glucose (74-106) mg/dL 128 H Calcium (8.5-10.1) mg/dL 8.0 L Total Bilirubin (0.2-1.0) mg/dL 0.34 AST (15-37) U/L < 5 L ALT (14-59) U/L 12 L Alkaline Phosphatase (46-116) U/L 81 C-Reactive Protein (<or=0.5) mg/dL 6.46 H Total Protein (6.4-8.2) g/dL 6.5 Albumin (3.4-5.0) g/dL 2.8 L Medical Decision Making emergent evaluation of infection located in the perineum. Initial differential includes labial abscess, Bartholin's gland abscess, Tamra's gangrene. Patient is not diabetic though does look like she has had some issues with glucose in the past. Plan for lab work and CT imaging to further differentiate this area Lab work reviewed. There is no leukocytosis or anemia but there is a left shift on her differential. She has persistent hypocalcemia. Mild hyperglycemia. Her procalcitonin is not elevated. Her CRP is slightly elevated, ESR is within normal limits. I reviewed the CT images and discussed them with the radiologist, there is concern for diffuse and significant inflammation and signs of infection, but no definitive abscess seen. Given the significant area of change of concern on the CT image, I have discussed with DIRECTOR OF CORPORATE RESPONSIBILITY to evaluate the patient in the emergency department for management recommendations. Patient evaluated by Dr. Segundo in the emergency department. She will admit the patient to take to the operating room for management of this infection under anesthesia. Antibiotics have not been given at this time, but they will be deferred to Dr. Segundo. Quality:SDOH Health Related Social Needs: Health related social needs food insecurity(Z59.41), t ransportation insecurity(Z59.82) Health related social needs details will meet with [facility] All Active Problems (Updated 08/18/24 @ 15:34 by Paulo Cosby MD) Abscess (Acute) Preventative health care (Acute) Pharyngeal dysphagia (Acute) Hypocalcemia (Acute) Splenic mass (Acute) Burn of lower limb (Acute) Primary cancer of right upper lobe of lung (Acute) Abrasion of back (Acute) Posterior tibial tendon dysfunction (PTTD) of both lower extremities (Acute) Chronic use of opiate for therapeutic purpose (Acute) Traumatic arthritis of right ankle (Acute) Posterior tibial tendonitis (Acute) KATJA (obstructive sleep apnea) (Chronic) Fibromyalgia (Acute) Steroid-induced hyperglycemia (Acute) Nausea (Acute) Hypoxia (Acute) Other disorders of eyelid (Acute) Pyogenic granuloma of eyelid (Acute) Blurry vision, bilateral (Acute) Panlobular emphysema (Acute) Left upper quadrant pain (Acute) Chronic fatigue (Acute) Hesitancy (Acute) Chronic low back pain (Chronic) Depression (Chronic) Degeneration of lumbar or lumbosacral intervertebral disc (Acute) Complications due to internal orthopedic device, implant, and graft (Acute) Menopausal flushing (Acute) Varicose vein of leg (Acute) Patellar bursitis (Acute) Rosacea (Acute) IBS (irritable bowel syndrome) (Chronic) Lumbar radicular syndrome (Acute) Seasonal allergic rhinitis (Acute) Senile nuclear sclerosis (Acute) Cervical spondylosis (Acute) Tear film insufficiency (Acute) Blepharitis of both eyes (Acute) Diplopia (Acute) Vitreous syneresis (Acute) Arthritis (Acute) Chronic pain syndrome (Chronic) Anxiety (Chronic) Contusion (Acute) Fatty liver (Acute) Bronchitis (Acute) Degeneration of cervical intervertebral disc (Acute) Brachial neuritis (Acute) Neuralgia and neuritis (Acute) Lumbago (Acute) 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) Chronic knee pain (Acute) Hip pain (Acute) Narcolepsy (Acute) Insomnia (Acute) Restless legs syndrome (Acute) Asthma (Chronic) Migraine (Chronic) Impaired glucose tolerance (Acute) Cervicalgia (Acute) Obesity (BMI 30-39.9) (Acute) Chronic back pain (Acute) GERD (gastroesophageal reflux disease) (Chronic) Major depressive disorder, recurrent (Acute) History of lung cancer (Acute) Cigarette smoker (Acute) COPD (chronic obstructive pulmonary disease) (Chronic) Medical History Acute hypoxemic respiratory failure Dizziness Pneumonia due to infectious organism Narcolepsy without cataplexy Postcalcaneal bursitis Knee contusion Abscess of face Edema of leg Chest pain Peptic ulcer Ankle fracture Surgical History H/O gastric bypass H/O cystoscopy S/P fine needle aspiration H/O colonoscopy H/O cervical spine surgery History of fundoplication H/O arthroscopy of shoulder H/O vaginal hysterectomy History of salpingectomy Family History Sister No problems noted. Brother No problems noted. Mother No problems noted. Father No problems noted. Brother No problems noted. Social History Smoking/Tobacco Use Status: Current every day Tobacco Type: cigarettes Tobacco: How many years used: 48 Quit status: has quit before Second Hand Exposure: Yes Smoking risk assessment performed?: Yes Alcohol Intake: current Alcohol Intake frequency: holidays/special occasions only Drug use: Never Substance use type: does not use Adopted: No Caregiver/Support person: Yes Foster care: No Household members: caregiver Housing: apartment Number of Children: 2 number of grandchildren: 1 Communication Needs: None Education Level: high school Do you need help understanding health information?: Rarely current occupation: Retired Pets and animals: No Sexually active: Yes Do you think of yourself as: straight/heterosexual Current gender identity: female What is your relationship status?: living with partner How often do you talk on the phone with friends or family?: three or more times per week How often do you get together with friends or relatives?: three or more times per week How often do you attend holiness or yarsani services?: 1-3 times per year Do you belong to any clubs or organized social groups?: no Panel score (0-1 are the most socially isolated patients): 2 What type of physical activity do you participate in: walking Duration: 15-30 minutes/day Frequency: 1-2 times per week Shreya/Pentecostal: Holiness Special shreya needs: No Seatbelt use: always Helmet use: Yes Drive intox or ride w/intox hazardous materials tanker driver: No Do you feel safe at home: Yes Do you feel safe in your relationship?: Yes
[2024-08-18 14:44] LABS: Procalcitonin < 0.10 ng/mL
--- NOTE | 2024-08-18 15:32 | GCONE_ITS ---
Date of service: 08/18/24 Time of Service: 15:32 Assessment and Plan Assessment and plan (1) Abscess: Status: Acute Assessment and plan: area involved is large enought that it precludes drainage in the ED or office. Plan to perform procedure with local anesthesia, insert packing and f/u with pt for wound care. (2) Preoperative exam for gynecologic surgery: Status: Acute Assessment and plan: Informed consent obtained. Questions answered. OR notified. History of Present Illness History of Present Illness Chief Complaint: Lump on R side of perineum Narrative: 63-year-old female with past medical history including tobacco dependence, COPD presents for evaluation of swelling and pain in her groin. She reports that a few days ago she started noticing the swelling and pain on the right side in her groin area next to her vagina. It is gotten significantly worse and it is very painful. She reports subjective fever and chills at home. She states that she noted today it started draining. Consults Consult date: 08/18/24 Requesting physician: Paulo Cosby Review of Systems Narrative: Lump present for several days. Pt noted significant increase in size in past 24hrs. Never had this before. All systems reviewed & are unremarkable except as noted in HPI and below Constitutional Constitutional: Reports as per HPI and Reports chills ENT Ears, Nose, Mouth, and Throat: Reports neck pain Cardiovascular Cardiovascular: Reports system reviewed and no additional complaints, except as documented and Reports dyspnea (chronic COPD.) Respiratory Respiratory: Reports cough and Reports dyspnea (chronic COPD.) Genitourinary Genitourinary: Reports system reviewed and no additional complaints, except as documented, Reports amenorrhea and Denies vaginal discharge Musculoskeletal Musculoskeletal: Reports system reviewed and no additional complaints, except as documented and Reports neck pain Integumentary/Breasts Skin/Breast: Reports system reviewed and no additional complaints, except as documented Neurologic Neurologic: Reports system reviewed and no additional complaints, except as documented Psychiatric Psychiatric: Reports system reviewed and no additional complaints, except as documented PFSH All Active Problems (Updated 08/18/24 @ 15:42 by Marie Segundo MD) Preoperative exam for gynecologic surgery (Acute) Abscess (Acute) Preventative health care (Acute) Pharyngeal dysphagia (Acute) Hypocalcemia (Acute) Splenic mass (Acute) Burn of lower limb (Acute) Primary cancer of right upper lobe of lung (Acute) Abrasion of back (Acute) Posterior tibial tendon dysfunction (PTTD) of both lower extremities (Acute) Chronic use of opiate for therapeutic purpose (Acute) Traumatic arthritis of right ankle (Acute) Posterior tibial tendonitis (Acute) KATJA (obstructive sleep apnea) (Chronic) Fibromyalgia (Acute) Steroid-induced hyperglycemia (Acute) Nausea (Acute) Hypoxia (Acute) Other disorders of eyelid (Acute) Pyogenic granuloma of eyelid (Acute) Blurry vision, bilateral (Acute) Panlobular emphysema (Acute) Left upper quadrant pain (Acute) Chronic fatigue (Acute) Hesitancy (Acute) Chronic low back pain (Chronic) Depression (Chronic) Degeneration of lumbar or lumbosacral intervertebral disc (Acute) Complications due to internal orthopedic device, implant, and graft (Acute) Menopausal flushing (Acute) Varicose vein of leg (Acute) Patellar bursitis (Acute) Rosacea (Acute) IBS (irritable bowel syndrome) (Chronic) Lumbar radicular syndrome (Acute) Seasonal allergic rhinitis (Acute) Senile nuclear sclerosis (Acute) Cervical spondylosis (Acute) Tear film insufficiency (Acute) Blepharitis of both eyes (Acute) Diplopia (Acute) Vitreous syneresis (Acute) Arthritis (Acute) Chronic pain syndrome (Chronic) Anxiety (Chronic) Contusion (Acute) Fatty liver (Acute) Bronchitis (Acute) Degeneration of cervical intervertebral disc (Acute) Brachial neuritis (Acute) Neuralgia and neuritis (Acute) Lumbago (Acute) 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) Chronic knee pain (Acute) Hip pain (Acute) Narcolepsy (Acute) Insomnia (Acute) Restless legs syndrome (Acute) Asthma (Chronic) Migraine (Chronic) Impaired glucose tolerance (Acute) Cervicalgia (Acute) Obesity (BMI 30-39.9) (Acute) Chronic back pain (Acute) GERD (gastroesophageal reflux disease) (Chronic) Major depressive disorder, recurrent (Acute) History of lung cancer (Acute) Cigarette smoker (Acute) COPD (chronic obstructive pulmonary disease) (Chronic) Medical History Acute hypoxemic respiratory failure Dizziness Pneumonia due to infectious organism Narcolepsy without cataplexy Postcalcaneal bursitis Knee contusion Abscess of face Edema of leg Chest pain Peptic ulcer Ankle fracture Surgical History H/O gastric bypass H/O cystoscopy S/P fine needle aspiration H/O colonoscopy H/O cervical spine surgery History of fundoplication H/O arthroscopy of shoulder H/O vaginal hysterectomy History of salpingectomy Family History Sister No problems noted. Brother No problems noted. Mother No problems noted. Father No problems noted. Brother No problems noted. Social History Smoking/Tobacco Use Status: Current every day Tobacco Type: cigarettes Tobacco: How many years used: 48 Quit status: has quit before Second Hand Exposure: Yes Smoking risk assessment performed?: Yes Alcohol Intake: current Alcohol Intake frequency: holidays/special occasions only Drug use: Never Substance use type: does not use Adopted: No Caregiver/Support person: Yes Foster care: No Household members: caregiver Housing: apartment Number of Children: 2 number of grandchildren: 1 Communication Needs: None Education Level: high school Do you need help understanding health information?: Rarely current occupation: Retired Pets and animals: No Sexually active: Yes Do you think of yourself as: straight/heterosexual Current gender identity: female What is your relationship status?: living with partner How often do you talk on the phone with friends or family?: three or more times per week How often do you get together with friends or relatives?: three or more times per week How often do you attend jewish or rastafarian services?: 1-3 times per year Do you belong to any clubs or organized social groups?: no Panel score (0-1 are the most socially isolated patients): 2 What type of physical activity do you participate in: walking Duration: 15-30 minutes/day Frequency: 1-2 times per week Shreya/Sabianism: Zoroastrian Special shreya needs: No Seatbelt use: always Helmet use: Yes Drive intox or ride w/intox utility driver: No Do you feel safe at home: Yes Do you feel safe in your relationship?: Yes Exam Narrative Exam Narrative: Review of Systems: All systems reviewed & are unremarkable except as noted in HPI and below Well-developed, appears uncomfortable Afebrile NCAT RRR Unlabored respiratory effort Nondistended abdomen, soft nontender General: other (bimanual exam deferred. ) External Female Exam: external swelling and lesion Other: examination reveals a area of tenderness and swelling at the base of the labia majora on the right, at the level of the vaginal introitus there is not an anterior swelling consistent with a Bartholin's gland, there is tenderness along the gluteal cleft, no appreciable JENNIFER anal tenderness or change No active drainage that I can appreciate, unable to really differentiate color change, but is significantly tender. Female genitals images: 2 1. 3x3cm tender, indurated. Minimal erythema. 2cm superficial thinning of skin over induration. Back/Spine/Pelvis Back: No no CVA tenderness Skin General skin exam: dry skin Neuro General: patient alert, patient awake and patient oriented x3 Extrem General: normal to inspection Psych Appearance: grossly normal Mental Status: mental status grossly normal Speech and Movement: speech and movement normal Results Last Vital Signs Temp 97.8 F 08/18/24 15:24 Pulse 80 08/18/24 15:24 Resp 18 08/18/24 15:24 BP 108/62 08/18/24 15:24 Pulse Ox 97 08/18/24 15:24 Labs 08/18/24 13:13 08/18/24 13:13 Labs: Laboratory Results - last 24 hr 08/18/24 13:13 WBC 10.65 RBC 3.73 L Hgb 11.6 Hct 35.1 L MCV 94 MCH 31.1 MCHC 33.0 RDW 13.6 Plt Count 313 MPV 8.7 Immature Gran % 0.4 Neutrophils % 78.8 Lymphocytes % 9.9 Monocytes % 7.9 Eosinophils % 2.6 Basophils % 0.4 Nucleated RBC % 0.0 Absolute Neutrophils 8.40 H Absolute Lymphocytes 1.05 L Absolute Monocytes 0.84 H Absolute Eosinophils 0.28 Absolute Basophils 0.04 ESR 27 Sodium 146 H Potassium 3.5 Chloride 112 H Carbon Dioxide 21.9 Anion Gap 12.1 H BUN 12 Creatinine 0.7 Est GFR (CKD-EPI 2020) 95.92 Glucose 128 H Calcium 8.0 L Total Bilirubin 0.34 AST < 5 L ALT 12 L Alkaline Phosphatase 81 C-Reactive Protein 6.46 H Total Protein 6.5 Albumin 2.8 L Procalcitonin < 0.10
--- NOTE | 2024-08-18 16:06 | ANES.PREOP_ITS ---
General Info Date of Service Date Performed: 08/18/24 Height: 5 ft 4 in Weight: 65.771 kg Body Mass Index (BMI): 24.9 Meds Allergies and Home Medications Allergies Allergy/AdvReac Type Severity Reaction Status Date / Time ketorolac (From Toradol) Allergy Severe Anaphylaxis Verified 08/18/24 12:22 ibuprofen (From Motrin) Allergy Intermediate Itching Verified 08/18/24 12:22 Home Medication ?Medication ?Instructions ?Recorded blood sugar diagnostic (OneTouch 02/17/24 Ultra Test strips) doxycycline hyclate 100 mg capsule 100 mg PO DAILY 02/17/24 duloxetine 60 mg capsule,delayed 120 mg PO DAILY 02/17/24 release lidocaine HCl 2 % mucosal solution 1 applic mucous membrane .q6 prn 02/17/24 (Lidocaine Viscous) methylphenidate HCl 20 mg tablet 40 mg PO DAILY 02/17/24 montelukast 10 mg tablet 10 mg PO DAILY Allergies 02/17/24 omeprazole 40 mg capsule,delayed 40 mg PO DAILY 02/17/24 release pregabalin 300 mg capsule 300 mg PO BID 02/17/24 ropinirole 2 mg tablet 2 mg PO HS 02/17/24 tiotropium bromide 2.5 2 inh inhalation DAILY 02/17/24 mcg/actuation mist for inhalation (Spiriva Respimat) benzonatate 150 mg capsule 150 mg PO TID PRN cough #30 caps 02/23/24 benzonatate 100 mg capsule 100 mg PO TID #90 caps 03/20/24 fluticasone propionate 115 2 puff inhalation BID #12 grams 03/20/24 mcg-salmeterol 21 mcg/actuation HFA inhaler (Advair HFA) umeclidinium 62.5 mcg/actuation 1 inh inhalation DAILY #30 ea 03/20/24 blister powder for inhalation (Incruse Ellipta) blood sugar diagnostic (OneTouch 05/03/24 Ultra Test strips) budesonide-formoterol HFA 80 2 puff inhalation BID 05/03/24 mcg-4.5 mcg/actuation aerosol inhaler (Symbicort) buspirone 15 mg tablet 15 mg PO .COMPLEX 05/03/24 hydrocodone 7.5 mg-acetaminophen 1 tab PO Q6H PRN pain 05/03/24 325 mg tablet ipratropium 0.5 mg-albuterol 3 mg 3 ml inhalation Q4H PRN 05/03/24 (2.5 mg base)/3 mL nebulization soln lancets 05/03/24 levalbuterol tartrate 45 2 inh inhalation Q4H PRN shortness 05/03/24 mcg/actuation aerosol inhaler of breath or wheezing methocarbamol 500 mg tablet 1,000 mg PO HS 05/03/24 methylphenidate HCl 10 mg tablet 10 mg PO QPM 05/03/24 ondansetron HCl 4 mg tablet 4 mg PO Q8H PRN nausea 05/03/24 promethazine 25 mg tablet 25 mg PO Q6H PRN nausea 05/03/24 sumatriptan succinate 100 mg tablet 100 mg PO ONCE PRN migraine 05/03/24 headache tiotropium bromide 2.5 2 puff inhalation BID 05/03/24 mcg/actuation mist for inhalation (Spiriva Respimat) zolpidem 5 mg tablet 5 mg PO QHS 05/03/24 azithromycin 250 mg tablet See Rx Instructions PO .COMPLEX #6 06/10/24 (Zithromax Z-Narendra) tabs Current Visit Medications: Current Medications Generic Name Dose Route Start Last Admin Trade Name Freq PRN Reason Stop Dose Admin IV Miscellaneous Supplies 1 each 08/18/24 12:45 Iv Access-Emergency Dept IV DIRECTED EMEKA Iohexol 75 ml 08/18/24 14:30 08/18/24 14:22 Omnipaque 350 Mg/Ml 100 Ml Btl IJ 09/17/24 23:59 75 ml DIRECTED EMEKA Administration Lidocaine/Epinephrine 30 ml 08/18/24 14:50 Lidocaine 1% Pres-Free W/Epi 1/200,000 30 Ml Vial SC DIRECTED EMEKA Sodium Chloride 0 ml 08/18/24 12:42 Normal Saline 10 Ml Vial IJ DIRECTED PRN Sodium Chloride 0 ml 08/18/24 12:42 Normal Saline Flush 10 Ml Syr IVP PRN PRN Sodium Chloride 0 ml 08/18/24 20:00 Normal Saline Flush 10 Ml Syr IVP BID EMEKA Sodium Chloride 50 ml 08/18/24 14:30 08/18/24 14:23 Normal Saline - Diluent 50 Ml Vial IJ 50 ml .FOR DI USE EMEKA Administration PFSH Active Problems Active Problems: Problem Status Onset Code Preoperative exam for gynecologic surgery Acute Z01.818 Abscess Acute L02.91 Preventative health care Acute Z00.00 Pharyngeal dysphagia Acute R13.13 Hypocalcemia Acute E83.51 Splenic mass Acute R16.1 Burn of lower limb Acute T24.009A Primary cancer of right upper lobe of lung Acute C34.11 Abrasion of back Acute S20.419A Posterior tibial tendon dysfunction (PTTD) of both lower extremities Acute M76.821, M76.822 Chronic use of opiate for therapeutic purpose Acute Z79.891 Traumatic arthritis of right ankle Acute M12.571 Posterior tibial tendonitis Acute M76.829 KATJA (obstructive sleep apnea) Chronic G47.33 Fibromyalgia Acute M79.7 Steroid-induced hyperglycemia Acute R73.9, T38.0X5A Nausea Acute R11.0 Hypoxia Acute R09.02 Other disorders of eyelid Acute H02.89 Pyogenic granuloma of eyelid Acute L98.0 Blurry vision, bilateral Acute H53.8 Panlobular emphysema Acute J43.1 Left upper quadrant pain Acute R10.12 Chronic fatigue Acute R53.82 Hesitancy Acute R39.11 Chronic low back pain Chronic M54.50, G89.29 Depression Chronic F32.A Degeneration of lumbar or lumbosacral intervertebral disc Acute M51.37 Complications due to internal orthopedic device, implant, and graft Acute T84.9XXA Menopausal flushing Acute N95.1 Varicose vein of leg Acute I83.90 Patellar bursitis Acute M70.50 Rosacea Acute L71.9 IBS (irritable bowel syndrome) Chronic K58.9 Lumbar radicular syndrome Acute M54.16 Seasonal allergic rhinitis Acute J30.2 Senile nuclear sclerosis Acute H25.10 Cervical spondylosis Acute M47.812 Tear film insufficiency Acute H04.129 Blepharitis of both eyes Acute H01.003, H01.006 Diplopia Acute H53.2 Vitreous syneresis Acute H43.399 Arthritis Acute M19.90 Chronic pain syndrome Chronic G89.4 Anxiety Chronic F41.9 Contusion Acute T14.8XXA Fatty liver Acute K76.0 Bronchitis Acute J40 Degeneration of cervical intervertebral disc Acute M50.30 Brachial neuritis Acute M54.12 Neuralgia and neuritis Acute M79.2 Lumbago Acute M54.50 Tobacco dependence in remission Acute F17.201 Chronic knee pain Acute M25.569, G89.29 Hip pain Acute M25.559 Narcolepsy Acute G47.419 Insomnia Acute G47.00 Restless legs syndrome Acute G25.81 Asthma Chronic J45.909 Migraine Chronic G43.909 Impaired glucose tolerance Acute R73.02 Cervicalgia Acute M54.2 Obesity (BMI 30-39.9) Acute E66.9 Chronic back pain Acute M54.9, G89.29 GERD (gastroesophageal reflux disease) Chronic K21.9 Major depressive disorder, recurrent Acute F33.9 History of lung cancer Acute Z85.118 Cigarette smoker Acute F17.210 COPD (chronic obstructive pulmonary disease) Chronic J44.9 Medical History Medical History Acute hypoxemic respiratory failure Dizziness Pneumonia due to infectious organism Narcolepsy without cataplexy Postcalcaneal bursitis Knee contusion Abscess of face Edema of leg Chest pain Peptic ulcer Ankle fracture Surgical History Surgical History H/O gastric bypass H/O cystoscopy S/P fine needle aspiration H/O colonoscopy H/O cervical spine surgery History of fundoplication H/O arthroscopy of shoulder H/O vaginal hysterectomy History of salpingectomy Tobacco Smoking/Tobacco Use Status: Current every day Tobacco Type: cigarettes Passive smoking exposure: Yes Second hand exposure: Yes Alcohol Alcohol Intake: current Alcohol intake frequency: holidays/special occasions only Substance Use Substance use: Never Substance use type: does not use Vital Signs and Lab Results Vital Signs Most Recent Vital Signs in EMR: Most Recent Vital Signs Temp Pulse Resp BP Pulse Ox 36.6 C 80 18 108/62 97 08/18/24 15:24 08/18/24 15:24 08/18/24 15:24 08/18/24 15:24 08/18/24 15:24 Lab Results 08/18/24 13:13 08/18/24 13:13 Blood Type / Crossmatch: 2 No Data to Display Complete Blood Count: 2 White Blood Count 10.65 10^3/uL (4.4-10.8) 08/18/24 13:13 Red Blood Count 3.73 10^6/uL (3.93-5.22) L 12/06/24 13:13 Hemoglobin 11.6 g/dL (11.2-15.7) 08/18/24 13:13 Hematocrit 35.1 % (36.0-46.0) L 08/18/24 13:13 Platelet Count 313 10^3/uL (130-400) 08/18/24 13:13 Complete Metabolic Panel: 2 Sodium 146 mmol/L (136-145) H 08/18/24 13:13 Potassium 3.5 mmol/L (3.5-5.1) 08/18/24 13:13 Chloride 112 mmol/L (98-107) H 08/18/24 13:13 Carbon Dioxide 21.9 mmol/L (21.0-32.0) 08/18/24 13:13 BUN 12 mg/dL (7-18) 08/18/24 13:13 Creatinine 0.7 mg/dL (0.55-1.02) 08/18/24 13:13 Est GFR (CKD-EPI 2020) 95.92 (mL/min/1.73m2) 08/18/24 13:13 Calcium 8.0 mg/dL (8.5-10.1) L 08/18/24 13:13 Albumin 2.8 g/dL (3.4-5.0) L 08/18/24 13:13 Glucose 128 mg/dL (74-106) H 08/18/24 13:13 C-Reactive Protein 6.46 mg/dL (<or=0.5) H 08/18/24 13:13 Liver Function Panel: 2 Alanine Aminotransferase (ALT/SGPT) 12 U/L (14-59) L 08/18/24 1 3:13 Aspartate Amino Transf (AST/SGOT) < 5 U/L (15-37) L 08/18/24 13 :13 Coagulation Panel: 2 No Data to Display Cardiac Panel: 2 No Data to Display Arterial Blood Gas: 2 No Data to Display Venous Blood Gas: 2 No Data to Display Pancreas Panel: 2 No Data to Display Thyroid Panel: 2 No Data to Display Infectious Disease: 2 No Data to Display Blood Cultures: 2 No Data to Display Toxicology Panel: 2 No Data to Display Imaging and Studies Imaging and Studies Study information below may be from another EMR and interpreted by another provider. Please see original notes in EMR for more complete details. EKG Summary: NSR 80's
[2024-08-18] MEDS: Bupivacaine 0.25% Pres-Free 30 ML VIAL (17:23)
--- NOTE | 2024-08-18 18:17 | W.PC.ACHO ---
Registration Status: Primary Language: Preferred Language: ED Information & Data Chief Complaint Cellulitis 08/18/24 14:39 Triage Note patient here with draining 08/18/24 12:20 abscess of R buttock. Sx started a couple days ago and area was small. Much larger now and painful. Medical / Surgical History (Last Reviewed 08/18/24 @ 15:08 by Paulo Cosby MD) Acute hypoxemic respiratory failure Dizziness Pneumonia due to infectious organism Narcolepsy without cataplexy Postcalcaneal bursitis Knee contusion Abscess of face Edema of leg Chest pain Peptic ulcer Ankle fracture (Last Reviewed 08/18/24 @ 15:08 by Paulo Cosby MD) H/O gastric bypass H/O cystoscopy S/P fine needle aspiration H/O colonoscopy H/O cervical spine surgery History of fundoplication H/O arthroscopy of shoulder H/O vaginal hysterectomy History of salpingectomy Most Recent Vital Signs Temperature 37.5 C 08/18/24 18:09 Temperature Source Temporal Artery Scan 08/18/24 18:09 Pulse 78 08/18/24 18:09 Respiratory Rate 16 08/18/24 18:09 Respiratory Effort Normal, Non-Labored 08/18/24 14:01 Blood Pressure 109/63 08/18/24 18:09 Blood Pressure Mean 77 08/18/24 15:24 Blood Pressure Position Sitting 08/18/24 12:20 Pulse Oximetry 98 08/18/24 18:09 Oxygen Delivery Method Room Air 08/18/24 18:09 Oxygen Flow Rate 0 08/18/24 18:09 Pain Level 9 08/18/24 18:09 Allergies ketorolac (From Toradol) Allergy (Severe, Verified 08/18/24 12:22) Anaphylaxis Tongue swelling ibuprofen (From Motrin) Allergy (Intermediate, Verified 08/18/24 12:22) Itching Precautions Isolation Standard precaution 08/18/24 14:01 Active Medications Generic Name Dose Route Start Last Admin Trade Name Freq PRN Reason Stop Dose Admin Iohexol 75 ml 08/18/24 14:30 08/18/24 14:22 Omnipaque 350 Mg/Ml 100 Ml Btl IJ 09/17/24 23:59 75 ml DIRECTED EMEKA Administration Sodium Chloride 50 ml 08/18/24 14:30 08/18/24 14:23 Normal Saline - Diluent 50 Ml Vial IJ 50 ml .FOR DI USE EMEKA Administration IV IV Catheter Type [Left Forearm Peripheral IV ] IV Catheter Gauge [Left 20 Forearm] Diagnostics 08/18/24 Range/Units 13:13 WBC 10.65 (4.4-10.8) 10^3/uL RBC 3.73 L (3.93-5.22) 10^6/uL Hgb 11.6 (11.2-15.7) g/dL Hct 35.1 L (36.0-46.0) % MCV 94 (80-95) fL MCH 31.1 (27.0-33.0) pg MCHC 33.0 (32.0-36.0) % RDW 13.6 (11.7-14.6) % Plt Count 313 (130-400) 10^3/uL MPV 8.7 (8.0-11.0) fL Immature Gran % 0.4 % Neutrophils % 78.8 % Lymphocytes % 9.9 % Monocytes % 7.9 % Eosinophils % 2.6 % Basophils % 0.4 % Nucleated RBC % 0.0 (0.0-0.3) % Absolute Neutrophils 8.40 H (1.2-6.7) 10^3/uL Absolute Lymphocytes 1.05 L (1.2-3.4) 10^3/uL Absolute Monocytes 0.84 H (0.1-0.8) 10^3/uL Absolute Eosinophils 0.28 (0.0-0.7) 10^3/uL Absolute Basophils 0.04 (0.0-0.2) 10^3/uL ESR 27 (0-30) mm/hr Sodium 146 H (136-145) mmol/L Potassium 3.5 (3.5-5.1) mmol/L Chloride 112 H (98-107) mmol/L Carbon Dioxide 21.9 (21.0-32.0) mmol/L Anion Gap 12.1 H (3-11) mmol/L BUN 12 (7-18) mg/dL Creatinine 0.7 (0.55-1.02) mg/dL Est GFR (CKD-EPI 2020) 95.92 (mL/min/1.73m2) Glucose 128 H (74-106) mg/dL Calcium 8.0 L (8.5-10.1) mg/dL Total Bilirubin 0.34 (0.2-1.0) mg/dL AST < 5 L (15-37) U/L ALT 12 L (14-59) U/L Alkaline Phosphatase 81 (46-116) U/L C-Reactive Protein 6.46 H (<or=0.5) mg/dL Total Protein 6.5 (6.4-8.2) g/dL Albumin 2.8 L (3.4-5.0) g/dL Procalcitonin < 0.10 ng/mL 08/18/24 17:08 Anaerobic Culture - Pending Vaginal 08/18/24 17:08 Surgical Culture - Pending Vaginal Gram Stain - Pending Intake and Output - 24 Hour Total 08/18/24 12:17 thru 08/18/24 18:16 Intake Total 10 Balance 10 Weight 65.771 kg Intake: IV 10 Falls Risk Assessment History of Falls No History 08/18/24 14:01 Contributing Factors No Factors 08/18/24 14:01 Ambulatory Aids Independent 08/18/24 14:01 Tubes/Lines None 08/18/24 14:01 Gait Evaluation No gait disturbance 08/18/24 14:01 Fall Total Score 0 08/18/24 14:01 Level of Risk Standard/Low Risk 08/18/24 14:01 Problems (Last Reviewed 08/18/24 @ 15:08 by Paulo Cosby MD) Preoperative exam for gynecologic surgery (Acute) Abscess (Acute) v v v v v v v v v Sending and/or Receiving Nurses: Please use comment section below to note any information pertinent to the patient hand-off not included above. Information / Comments: Report received from: Kristen Dunbar RN (PACU)
--- NOTE | 2024-08-18 19:30 | PDOC.DSDIS_ITS ---
Date of service: 08/18/24 Discharge Plan Disposition Patient Disposition: Home Condition: Improving Discharge Details Reason For Visit: Abscess of Perineum Admit Date/Time: 08/18/24 18:24 Admit Provider: Marie Segundo Attending Provider: Marie Segundo Primary Care Provider: Manjeet Lynne [facility] Course Hospital Course: Pt was pesented to ED with report of 72 hrs of worsening L perineal swelling and pain. On exam she was noted to have a perineal abscess which was incised and drained in the OR. The wound was packed with guaze and she was instructed to return [facility] on Wednesday08/21/24 to have the packing removed. Home Meds and New Rx's Prescriptions: No Action Incruse Ellipta 62.5 mcg/actuation blister with device 1 inh inhalation DAILY Qty: 30 12RF benzonatate 100 mg capsule 100 mg PO TID Qty: 90 6RF fluticasone propion-salmeterol [Advair HFA] 115-21 mcg/actuation HFA aerosol inhaler 2 puff inhalation BID Qty: 12 12RF Rx Instructions: administer with spacer methylphenidate HCl 10 mg tablet 10 mg PO QPM Patient Comments: hydrocodone-acetaminophen 7.5-325 mg tablet 1 tab PO Q6H PRN (Reason: pain) methocarbamol 500 mg tablet 1,000 mg PO HS Patient Comments: TAKE TWO TABLETS BY MOUTH DAILY AT 9PM AT BEDTIME zolpidem 5 mg tablet 5 mg PO QHS buspirone 15 mg tablet 15 mg PO .COMPLEX Rx Instructions: 15 mg orally QD-TID; ondansetron HCl 4 mg tablet 4 mg PO Q8H PRN (Reason: nausea) promethazine 25 mg tablet 25 mg PO Q6H PRN (Reason: nausea) sumatriptan succinate 100 mg tablet 100 mg PO ONCE PRN (Reason: migraine headache) levalbuterol tartrate 45 mcg/actuation HFA aerosol inhaler 2 inh INHALATION Q4H PRN (Reason: shortness of breath or wheezing) ipratropium-albuterol 0.5 mg-3 mg(2.5 mg base)/3 mL solution for nebulization 3 ml inhalation Q4H PRN (DME) lancets Misc See Rx Instructions .Route Rx Instructions: Check blood glucose 2x daily Spiriva Respimat 2.5 mcg/actuation mist 2 puff inhalation BID budesonide-formoterol [Symbicort] 80-4.5 mcg/actuation HFA aerosol inhaler 2 puff inhalation BID (DME) OneTouch Ultra Test Strip See Rx Instructions .Route Rx Instructions: Test blood glucose 2x daily methylphenidate HCl 20 mg tablet 40 mg PO DAILY montelukast 10 mg tablet 10 mg PO DAILY pregabalin 300 mg capsule 300 mg PO BID Patient Comments: TAKE ONE CAPSULE BY MOUTH TWICE DAILY DAILY MAX 2 CAPSULES ropinirole 2 mg tablet 2 mg PO HS Patient Comments: TAKE ONE TABLET BY MOUTH DAILY AT 9PM AT BEDTIME lidocaine HCl [Lidocaine Viscous] 2 % solution 1 applic mucous membrane .q6 prn Patient Comments: MIX 5 MLS LIDOCAINE WITH 5 MLS MYLANTA OR MAALOX, SWISH AND SWALLOW FOR SWALLOWING PAIN EVERY 6 HOURS NEEDED duloxetine 60 mg capsule,delayed release(DR/EC) 120 mg PO DAILY (DME) OneTouch Ultra Test Strip MISCELLANEOUS Patient Comments: USE TO TEST TWO TIMES A DAY omeprazole 40 mg capsule,delayed release(DR/EC) 40 mg PO DAILY Patient Comments: TAKE ONE CAPSULE BY MOUTH EVERY DAY Spiriva Respimat 2.5 mcg/actuation mist 2 inh INHALATION DAILY Patient Comments: INHALE 2 PUFFS DIRECTED DAILY doxycycline hyclate 100 mg capsule 100 mg PO DAILY benzonatate 150 mg capsule 150 mg PO TID PRN (Reason: cough) Qty: 30 0RF azithromycin [Zithromax Z-Narendra] 250 mg tablet See Rx Instructions .ROUTE .COMPLEX Qty: 6 0RF Rx Instructions: For 250 mg dose pack: take 500 mg today (day 1), then 250 mg for 4 days (days 2-5) Discharge Instructions Additional Instructions: you will be called wednesday08/21/24 with an appointment time for an [facility]. Call the hospital dictaphone operator at [phone] and ask to speak to if you have concerns or questions before then. You may shower. Place a pad in your underwear because there will be some bloody drainage from where the abscess was drained. Continue to take your usual dose of Vicodin for pain. Stand Alone Forms: Nursing Discharge Form Activity:: Activity as Tolerated Equipment/Supplies:: No Equipment Needed Diet:: As Tolerated Discharge Orders Discharge Orders: Discharge Order (Routine); Ordered 08/18/24 Ordered By: Marie Segundo DS: Diagnosis Discharge Diagnosis (1) Abscess: Status: Acute
== END 2024-08-18 20:54 | disposition home or self-care (01) ==
LOC: ER 15:34 → SUR 16:54 → MS 18:32
PROVIDERS: Admitting Provider Obstetrics & Gynecology Gynecology; Emergency Provider Emergency Medicine; PCP Family Medicine; Visit Provider Obstetrics & Gynecology Gynecology
DX: J44.9 Chronic obstructive pulmonary disease, unspecified; F17.210 Nicotine dependence, cigarettes, uncomplicated; N76.4 Abscess of vulva; Z79.899 Other long term (current) drug therapy; E83.51 Hypocalcemia; R13.13 Dysphagia, pharyngeal phase; C34.11 Malignant neoplasm of upper lobe, right bronchus or lung; Z79.891 Long term (current) use of opiate analgesic; G47.33 Obstructive sleep apnea (adult) (pediatric); M79.7 Fibromyalgia; M54.50 Low back pain, unspecified; K58.9 Irritable bowel syndrome, unspecified; G47.00 Insomnia, unspecified; G25.81 Restless legs syndrome; G47.419 Narcolepsy without cataplexy; G43.909 Migraine, unspecified, not intractable, without status migrainosus; Z98.84 Bariatric surgery status
CPT/HCPCS: 80053; 84145; 85652; 99285; 72193; 85025; 86140; 87070; 87075; 87205; J0665; J3490

== ENCOUNTER 2024-10-04 22:03 | Inpatient (IN) | payer MEDICARE, MEDICAID, SELFPAY ==
[2024-10-04] VITALS (24 sets, daily range): BP systolic 93–140; BP diastolic 60–99; PULSE 75–99; RESP 17–37; TEMP 37.8; O2SAT 88–100
--- NOTE | 2024-10-04 22:00 | RT.EKG_ITS ---
APPROVED REPORT Exam: Resting ECG Reason for Exam: SOB Patient Location: E HR:94 bpm ECG Measurements Heart Rate 94 AXIS MT 132 P 52 QRSd 90 QRS 38 QT 356 T 36 QTc 445 Conclusion Sinus rhythm...normal P axis, V-rate 60- 99 Normal [place] and Interval Lateral ST Depression Isoelectric in III
--- NOTE | 2024-10-04 22:05 | ED.GENADUL_ITS ---
Discharge Plan Disposition Patient Disposition: Admit to [facility] Condition: Poor Discharge Details Clinical Impression: Acute exacerbation of chronic obstructive pulmonary disease (COPD) Primary Care Provider: Manjeet Lynne ED Provider: Jean Rios [place] Meds and New Rx's Prescriptions: No Action Incruse Ellipta 62.5 mcg/actuation blister with device 1 inh inhalation DAILY Qty: 30 12RF benzonatate 100 mg capsule 100 mg PO TID Qty: 90 6RF fluticasone propion-salmeterol [Advair HFA] 115-21 mcg/actuation HFA aerosol inhaler 2 puff inhalation BID Qty: 12 12RF Rx Instructions: administer with spacer methylphenidate HCl 10 mg tablet 10 mg PO QPM Patient Comments: hydrocodone-acetaminophen 7.5-325 mg tablet 1 tab PO Q6H PRN (Reason: pain) methocarbamol 500 mg tablet 1,000 mg PO HS Patient Comments: TAKE TWO TABLETS BY MOUTH DAILY AT 9PM AT BEDTIME zolpidem 5 mg tablet 5 mg PO QHS buspirone 15 mg tablet 15 mg PO .COMPLEX Rx Instructions: 15 mg orally QD-TID; ondansetron HCl 4 mg tablet 4 mg PO Q8H PRN (Reason: nausea) promethazine 25 mg tablet 25 mg PO Q6H PRN (Reason: nausea) sumatriptan succinate 100 mg tablet 100 mg PO ONCE PRN (Reason: migraine headache) levalbuterol tartrate 45 mcg/actuation HFA aerosol inhaler 2 inh INHALATION Q4H PRN (Reason: shortness of breath or wheezing) ipratropium-albuterol 0.5 mg-3 mg(2.5 mg base)/3 mL solution for nebulization 3 ml inhalation [facility]H [facility] .Route Rx Instructions: Check blood glucose 2x daily Spiriva Respimat 2.5 mcg/actuation mist 2 puff inhalation BID budesonide-formoterol [Symbicort] 80-4.5 mcg/actuation HFA aerosol inhaler 2 puff inhalation BID (DME) OneTouch Ultra Test Strip See Rx Instructions .Route Rx Instructions: Test blood glucose 2x daily methylphenidate HCl 20 mg tablet 40 mg PO DAILY montelukast 10 mg tablet 10 mg PO DAILY pregabalin 300 mg capsule 300 mg PO BID Patient Comments: TAKE ONE CAPSULE BY MOUTH TWICE DAILY DAILY MAX 2 CAPSULES ropinirole 2 mg tablet 2 mg PO HS Patient Comments: TAKE ONE TABLET BY MOUTH DAILY AT 9PM AT BEDTIME lidocaine HCl [Lidocaine Viscous] 2 % solution 1 applic mucous membrane .q6 prn Patient Comments: MIX 5 MLS LIDOCAINE WITH 5 MLS MYLANTA OR MAALOX, SWISH AND SWALLOW FOR SWALLOWING PAIN EVERY 6 HOURS NEEDED duloxetine 60 mg capsule,delayed release(DR/EC) 120 mg PO DAILY (DME) OneTouch Ultra Test Strip MISCELLANEOUS Patient Comments: USE TO TEST TWO TIMES A DAY omeprazole 40 mg capsule,delayed release(DR/EC) 40 mg PO DAILY Patient Comments: TAKE ONE CAPSULE BY MOUTH EVERY DAY Spiriva Respimat 2.5 mcg/actuation mist 2 inh INHALATION DAILY Patient Comments: INHALE 2 PUFFS DIRECTED DAILY doxycycline hyclate 100 mg capsule 100 mg PO DAILY benzonatate 150 mg capsule 150 mg PO TID PRN (Reason: cough) Qty: 30 0RF HPI General Mode of arrival: wheelchair . Date/Time Provider Initiated Documentation: 10/04/24 22:05 . Limitations to Documentation: no limitations . Information obtained by: patient, RN notes reviewed and old records reviewed . HPI Narrative: Patient presents to ED with increasing shortness of breath, wheezing, cough. Patient has history of COPD, still smoking. Also history of lung cancer status post EBRT, right upper lobe. Reports over the last week has had increasing shortness of breath and wheezing but in the last 24 hours is much more short of breath, cough which is productive of thick sputum, chest pain with cough, vomiting with cough. Nebulizer at home has not been helping. Currently not on steroids or antibiotics. No abdominal pain or diarrhea. No fever that she is aware of. Chest pain only with cough. Work of breathing worsening over the course of today into tonight prompting ED visit. Related Data Home Medications ?Medication ?Instructions ?Recorded ?Confirmed blood sugar diagnostic (OneTouch 02/17/24 08/31/24 Ultra Test strips) doxycycline hyclate 100 mg capsule 100 mg PO DAILY 02/17/24 10/04/24 duloxetine 60 mg capsule,delayed 120 mg PO DAILY 02/17/24 10/04/24 release lidocaine HCl 2 % mucosal solution 1 applic mucous membrane .q6 prn 02/17/24 10/04/24 (Lidocaine Viscous) methylphenidate HCl 20 mg tablet 40 mg PO DAILY 02/17/24 10/04/24 montelukast 10 mg tablet 10 mg PO DAILY Allergies 02/17/24 10/04/24 omeprazole 40 mg capsule,delayed 40 mg PO DAILY 02/17/24 10/04/24 release pregabalin 300 mg capsule 300 mg PO BID 02/17/24 10/04/24 ropinirole 2 mg tablet 2 mg PO HS 02/17/24 10/04/24 tiotropium bromide 2.5 2 inh inhalation DAILY 02/17/24 10/04/24 mcg/actuation mist for inhalation (Spiriva Respimat) benzonatate 150 mg capsule 150 mg PO TID PRN cough #30 caps 02/23/24 10/04/24 benzonatate 100 mg capsule 100 mg PO TID #90 caps 03/20/24 10/04/24 fluticasone propionate 115 2 puff inhalation BID #12 grams 03/20/24 10/04/24 mcg-salmeterol 21 mcg/actuation HFA inhaler (Advair HFA) umeclidinium 62.5 mcg/actuation 1 inh inhalation DAILY #30 ea 03/20/24 10/04/24 blister powder for inhalation (Incruse Ellipta) blood sugar diagnostic (OneTouch 05/03/24 08/31/24 Ultra Test strips) budesonide-formoterol HFA 80 2 puff inhalation BID 05/03/24 10/04/24 mcg-4.5 mcg/actuation aerosol inhaler (Symbicort) buspirone 15 mg tablet 15 mg PO .COMPLEX 05/03/24 10/04/24 hydrocodone 7.5 mg-acetaminophen 1 tab PO Q6H PRN pain 05/03/24 10/04/24 325 mg tablet ipratropium 0.5 mg-albuterol 3 mg 3 ml inhalation Q4H PRN 05/03/24 10/04/24 (2.5 mg base)/3 mL nebulization soln lancets 05/03/24 08/31/24 levalbuterol tartrate 45 2 inh inhalation Q4H PRN shortness 05/03/24 10/04/24 mcg/actuation aerosol inhaler of breath or wheezing methocarbamol 500 mg tablet 1,000 mg PO HS 05/03/24 10/04/24 methylphenidate HCl 10 mg tablet 10 mg PO QPM 05/03/24 10/04/24 ondansetron HCl 4 mg tablet 4 mg PO Q8H PRN nausea 05/03/24 10/04/24 promethazine 25 mg tablet 25 mg PO Q6H PRN nausea 05/03/24 08/31/24 sumatriptan succinate 100 mg tablet 100 mg PO ONCE PRN migraine 05/03/24 0 10/04/24 headache tiotropium bromide 2.5 2 puff inhalation BID 05/03/24 10/04/24 mcg/actuation mist for inhalation (Spiriva Respimat) zolpidem 5 mg tablet 5 mg PO QHS 05/03/24 10/04/24 Previous Rx's ?Medication ?Instructions ?Recorded benzonatate 150 mg capsule 150 mg PO TID PRN cough #30 caps 02/23/24 benzonatate 100 mg capsule 100 mg PO TID #90 caps 03/20/24 fluticasone propionate 115 2 puff inhalation BID #12 grams 03/20/24 mcg-salmeterol 21 mcg/actuation HFA inhaler (Advair HFA) umeclidinium 62.5 mcg/actuation 1 inh inhalation DAILY #30 ea 03/20/24 blister powder for inhalation (Incruse Ellipta) Allergies Allergy/AdvReac Type Severity Reaction Status Date / Time ketorolac (From Toradol) Allergy Severe Anaphylaxis Verified 10/04/24 22:18 ibuprofen (From Motrin) Allergy Intermediate Itching Verified 10/04/24 22:18 General DMITRI: 3 Review of Systems Narrative: Per HPI Exam Narrative Exam Narrative: Const: WDWN female in mild to moderate respiratory distress. VS per triage. HEENT: NC/AT. Normal facial exam. Neck: Supple. Trachea midline. Lungs: Tachypnea, increased work of breathing, some pursed lip breathing with diffuse wheezing and rhonchi throughout. Cor: RRR without murmur. Good radial pulses. GI: Soft/ND/NT. Neuro: A+O x 3. Normal speech, mentation. Cranial nerves II - XII grossly intact. No gross motor or sensory deficit. Ext: No C/C/E. Medical Decision Making Patient with history of COPD, still smoking, presenting with increasing shortness of breath, cough. Found to have low-grade fever here. Has increased work of breathing with some pursed lip breathing. She has diffuse wheezing and rhonchi throughout. Saturations are 88% on room air. Concern for hypercapnia and impending respiratory failure. She is placed on 2 L. An EKG shows sinus rhythm with normal intervals and axis, isoelectric in lead III and some nonspecific ST depression in the lateral leads. Will give DuoNeb followed by albuterol neb 5 mg, place IV and give Solu-Medrol, obtain labs including VBG, portable chest x-ray, nasal swab. Patient improved after neb treatment. Still tachypneic but work of breathing much improved. Saturations 95% on 2 L. VBG with no evidence of CO2 retention. White count is normal. Chemistries and liver function unremarkable. Troponin less than 4. Nasal swab has returned negative. Portable chest x-ray per my read with no acute cardiopulmonary process, scarring from previous radiation therapy right upper lobe stable. Will need admission for COPD exacerbation, possible viral URI versus atypical given her low-grade fever. Will cover with azithromycin, first dose given orally here. Discussed with patient. Discussed with hospitalist. Admit for further management. Medical Records Medical records reviewed: Yes I reviewed the patient's medical records. Medical records narrative: Pulmonary note from the summer Imaging Data Radiologic Study: Attestation: I personally reviewed and interpreted this imaging study as follows: Imaging: X-Ray My impression: See [facility] Lab Data Lab results reviewed: Yes I reviewed the patient's lab results. Lab results narrative: See [facility] ECG Data Attestation: I personally reviewed and interpreted this ECG (s) as follows: Prior ECG tracings: available for review Interpretation: See [facility]/EKG Quality:SDOH Health Related Social Needs: Health related social needs details will meet with Critical Care Time Critical Care Time Critical Care Time: Yes Total Critical Care Time: 40 Attestation: Upon my evaluation, this patient had a high probability of imminent or life- threatening deterioration, which required my direct attention, intervention, and personal management. I have personally provided 40 minutes of critical care time exclusive of time spent on separately billable procedures. Time includes monitoring for potential decompensation, ordering of tests and medications, review of laboratory and radiology results, discussion with consultants and documentation . Interventions were performed as documented above in procedures. 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 08/18/24. I&D followed by antibiotics Pharyngeal dysphagia (Acute) Hypocalcemia (Acute) Splenic mass (Acute) Burn of lower limb (Acute) Posterior tibial tendon dysfunction (PTTD) of both lower extremities (Acute) Chronic use of opiate for therapeutic purpose (Acute) Traumatic arthritis of right ankle (Acute) Posterior tibial tendonitis (Acute) Fibromyalgia (Acute) Steroid-induced hyperglycemia (Acute) Hypoxia (Acute) Other disorders of eyelid (Acute) Pyogenic granuloma of eyelid (Acute) Blurry vision, bilateral (Acute) Panlobular emphysema (Acute) Chronic fatigue (Acute) Hesitancy (Acute) Degeneration of lumbar or lumbosacral intervertebral disc (Acute) Complications due to internal orthopedic device, implant, and graft (Acute) Menopausal flushing (Acute) Varicose vein of leg (Acute) Patellar bursitis (Acute) Rosacea (Acute) IBS (irritable bowel syndrome) (Chronic) Lumbar radicular syndrome (Acute) Seasonal allergic rhinitis (Acute) Senile nuclear sclerosis (Acute) Cervical spondylosis (Acute) Tear film insufficiency (Acute) Blepharitis of both eyes (Acute) Diplopia (Acute) Vitreous syneresis (Acute) Arthritis (Acute) Chronic pain syndrome (Chronic) Anxiety (Chronic) Fatty liver (Acute) Bronchitis (Acute) Degeneration of cervical intervertebral disc (Acute) Brachial neuritis (Acute) Neuralgia and neuritis (Acute) Lumbago (Acute) 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) Chronic knee pain (Acute) Hip pain (Acute) Narcolepsy (Acute) Insomnia (Acute) Restless legs syndrome (Acute) Asthma (Chronic) Migraine (Chronic) Impaired glucose tolerance (Acute) Cervicalgia (Acute) Obesity (BMI 30-39.9) (Acute) Chronic back pain (Acute) Major depressive disorder, recurrent (Acute) History of lung cancer (Acute) Cigarette smoker (Acute) Medical History COPD (chronic obstructive pulmonary disease) GERD (gastroesophageal reflux disease) Depression Chronic low back pain KATJA (obstructive sleep apnea) Primary cancer of right upper lobe of lung Surgical History H/O gastric bypass H/O cystoscopy S/P fine needle aspiration H/O colonoscopy H/O cervical spine surgery History of fundoplication H/O arthroscopy of shoulder H/O vaginal hysterectomy History of salpingectomy Family History Sister No problems noted. Brother No problems noted. Mother No problems noted. Father No problems noted. Brother No problems noted. Social History Smoking/Tobacco Use Status: Current every day Tobacco Type: cigarettes Tobacco: How many years used: 48 Quit status: has quit before Second Hand Exposure: Yes Smoking risk assessment performed?: Yes Alcohol Intake: current Alcohol Intake frequency: holidays/special occasions only Drug use: Occasionally Substance use type: marijuana Adopted: No Caregiver/Support person: Yes Foster care: No Household members: caregiver Housing: apartment Number of Children: 2 number of grandchildren: 1 Communication Needs: None Education Level: high school Do you need help understanding health information?: Rarely current occupation: Retired Pets and animals: No Sexually active: Yes Do you think of yourself as: straight/heterosexual Current gender identity: female What is your relationship status?: living with partner How often do you talk on the phone with friends or family?: three or more times per week How often do you get together with friends or relatives?: three or more times per week How often do you attend hinduism or lutheran services?: 1-3 times per year Do you belong to any clubs or organized social groups?: no Panel score (0-1 are the most socially isolated patients): 2 What type of physical activity do you participate in: walking Duration: 15-30 minutes/day Frequency: 1-2 times per week Shreya/Quaker: Anabaptist Special shreya needs: No Seatbelt use: always Helmet use: Yes Drive intox or ride w/intox pick up truck driver: No Do you feel safe at home: Yes Do you feel safe in your relationship?: Yes
[2024-10-04] MEDS: Albuterol/Ipratropium 3 ML UPD VIAL UPD (22:38)
[2024-10-04] MEDS: methylPREDNISolone SUCC 125 MG VIAL IVP (22:38)
[2024-10-04 22:42] LABS: BE (Venous) -1 mmol/L (-2-3); HCO3 (Venous) 26 mmol/L (23-28); HCT 41.3 % (36.0-46.0); HGB 13.6 g/dL (11.2-15.7); MCH 30.9 pg (27.0-33.0); MCHC 32.9 % (32.0-36.0); MCV 94 fL (80-95); MPV 8.6 fL (8.0-11.0); O2 Sat (Venous) 51 %; Platelet Count 364 10^3/uL (130-400); RDW 14.3 % (11.7-14.6); RDW-SD 49.4 fL; TCO2 (Venous) 24 mmol/L (24-29); WBC 8.79 10^3/uL (4.4-10.8); pCO2 (Venous) 51 mmHg (41-51); pH (Venous) 7.31 (7.31-7.41); pO2 (Venous) 26 mmHg
[2024-10-04] MEDS: Albuterol 2.5 MG/3 ML INH SOLN VIAL 5 MG UPD (22:45)
[2024-10-04 23:03] LABS: Atypical Lymphocytes % 2 %
[2024-10-04 23:04] LABS: Absolute Lymphocyte Count 0.79 10^3/uL (1.2-3.4); Absolute Monocyte Count 0.62 10^3/uL (0.1-0.8); Absolute Neutrophil Count 7.38 10^3/uL (1.2-6.7); Bands % 14 %; Diff Comment Manual Differential; RBC Morphology Normal
[2024-10-04 23:07] LABS: ALT 14 U/L (14-59); AST 7 U/L (15-37); Albumin 3.4 g/dL (3.4-5.0); Alkaline Phosphatase 112 U/L (46-116); Anion Gap 9.9 mmol/L (3-11); BUN 13 mg/dL (7-18); Bilirubin, Total 0.29 mg/dL (0.2-1.0); CO2 28.1 mmol/L (21.0-32.0); CREATININE 0.9 mg/dL (0.55-1.02); Calcium 9.2 mg/dL (8.5-10.1); Chloride 107 mmol/L (98-107); Estimated GFR 70.95 (mL/min/1.73m2); Glucose 129 mg/dL (74-106); Magnesium 2.3 mg/dL (1.8-2.4); Potassium 3.4 mmol/L (3.5-5.1); Sodium 145 mmol/L (136-145); Total Protein 8.1 g/dL (6.4-8.2)
[2024-10-04 23:08] LABS: Troponin I < 4 ng/L (<or=51)
--- NOTE | 2024-10-04 23:09 | DI.RAD_ITS ---
Exam(s) XR PORTABLE CHEST AP EXAM: XR PORTABLE CHEST AP CLINICAL HISTORY: cough, SOB. TECHNIQUE: 2D digital imaging was performed. COMPARISON: CR XR CHEST 2V PA LATERAL from 02/17/2024 CR,XR XR CHEST 2V PA LATERAL from 06/10/2024 FINDINGS: Single AP portable view. Plate in the lower cervical spine is again noted. Heart size is normal. The mediastinum is not widened. Bilateral hyperinflation again noted. Pleural based right upper lobe density again noted. Has not i ncreased in size. Consistent with pleural based scarring. Mildly increased markings throughout both lungs but without air bronchograms nor pleural effusions. IMPRESSION: Stable pleural parenchymal scarring in the right upper lobe. No obvious new lung findings. DATA REPOSITORY: RADIATION DOSE DELIVERED:
--- NOTE | 2024-10-04 23:29 | DI.VRAD_ITS ---
PROCEDURE INFORMATION: Exam: XR Chest Exam date and time: 10/04/2024 11:08 PM Age: 63 years old Clinical indication: Cough and shortness of breath; Patient HX: Cough, SOB TECHNIQUE: Imaging protocol: Radiologic exam of the chest. Views: 1 view. COMPARISON: CR XR CHEST 2V PA LATERAL 06/10/2024 8:10 AM FINDINGS: Lungs: Right apical chronic pleuroparenchymal scarring/pleural thickening unchanged. Pleural spaces: See Lungs finding. Heart/Mediastinum: Unremarkable. No cardiomegaly. Bones/joints: Unremarkable. IMPRESSION: 1. No evidence for acute infiltrates. 2. Right apical chronic pleuroparenchymal scarring/fibrosis. Dictated and Authenticated by: Tung Hooker MD. Ordering:BHUPENDRA Pena MD
[2024-10-04 23:31] LABS: COVID-19 PCR Negative (Negative); Influenza A PCR Negative (Negative); Influenza B PCR Negative (Negative); RSV PCR Negative (Negative)
[2024-10-04 23:33] LABS: Source Nasopharynx
[2024-10-04] MEDS: Azithromycin 250 MG TAB 500 MG PO (23:46)
--- NOTE | 2024-10-04 23:54 | HPE_ITS ---
Date of service: 10/04/24 Time of Service: 23:55 Assessment and Plan Assessment and plan (1) Acute exacerbation of chronic obstructive pulmonary disease (COPD): Start date: 10/04/24 Status: Acute Assessment and plan: This is a 63-year-old lady who has a previous history of smoking which was stopped but she had right upper lobe lung cancer now in remission status post radiation therapy presenting with recent smoking with her and cold symptoms for 1 week. She has a productive cough of brown sputum but no complaints of fever upon presentation she had a low-grade fever upon admission. X-ray does not reveal any infiltrates and patient was initiated on Zithromax with IV Solu-Medrol and aggressive nebulizer treatments for new onset of hypoxemia with patient needing oxygen again after being off for months to years when not smoking. She is not retaining CO2. She has no evidence of chronic respiratory failure. She has no evidence of heart failure. She is on chronic pain meds and this will be screened and monitored with patient. She will be continued on IV fluids the patient appearing clinically dry and not urinating, IV Solu-Medrol with aggressive nebulizer treatments and oral Zithromax monitoring symptoms for possible worsening since she has been smoking recently and she may have plugging in the next 2 days. She is a full code. (2) Hypoxia: Start date: 10/04/24 Status: Acute Assessment and plan: Patient was on chronic oxygen therapy in the past and was on room air recently. She is now requiring oxygen again. This may be a continued need short-term because the patient's reinitiation of smoking. (3) Cigarette smoker: Status: Chronic Assessment and plan: Patient has started smoking again and will stop. Her also needs to stop. Having secondary smoke in the house makes it difficult for (4) Primary cancer of right upper lobe of lung: Assessment and plan: In remission status post radiation. There is scarring on the chest x-ray. (5) Steroid-induced hyperglycemia: Start date: 10/04/24 Status: Acute Assessment and plan: Patient has a history of insulin resistance and is not on treatment but does check her glucometers at home. Glucometer checks before meals and at bedtime with sensitive sliding scale insulin coverage during her hospital stay. (6) Depression: Assessment and plan: Continue outpatient medical therapy. Urine drug screen with increase risk of drug misuse. (7) Chronic use of opiate for therapeutic purpose: Status: Chronic Assessment and plan: Patient is on chronic hydrocodone daily for back pain. She also is on treatment for anxiety with BuSpar and antidepressants for depression. 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 These will be continued. Urine drug screen monitoring. Patient appears to be moderate risk for illicit drug use with chronic pain and chronic anxiety. (8) Cervical spondylosis: Status: Chronic Assessment and plan: Continue outpatient chronic medical therapy. History of Present Illness History of Present Illness Chief Complaint: Shortness of breath with cough and wheezing Narrative: This is a 63-year-old female patient had a previous history of lung cancer now in remission status post radiation. She was a heavy smoker prior and quit for some years but recently has been smoking again with her . They both have had cold-like symptoms for over a week with her symptoms progressively worsening now with shortness of breath and difficulty talking with pursed lip breathing. She had increased wheezing over the last day. Her cough is dry thick sputum. Her chest does hurt with coughing but no radiation and is not substernal but over her lungs. There has been slight bruising of her chest from her holding her chest coughing. She is not on blood thinners. Her dyspnea has also worsened. She was on O2 in the past and was off but now is requiring oxygen after evaluation in the ED. She did respond to nebulizers and IV Solu-Medrol but continues to have difficulty speaking with tachypnea and pursed lip breathing. She was initiated on a Zithromax for bronchitis. Imaging did not show infiltrates but old scars from the lung cancer. She is on chronic pain meds and does occasionally smoke marijuana with patient considering edibles instead because of smoking pot in her lungs. She denied any hemoptysis. She denies illicit drug use but urine drug screen will be done upon admission. She denies any GI symptoms and has had no peripheral edema. She has no history of heart failure. She does have a history of impaired glucose tolerance and does check her sugars but is not on treatment for diabetes. Her chronic pain is chronic back pain and musculoskeletal pain. She does have cervical degenerative disc disease. She is a full code Review of Systems Narrative: 13 point review of systems positive for some emesis with gagging and coughing, no weight loss, otherwise unrevealing or stable. PFSH All Active Problems Acute exacerbation of chronic obstructive pulmonary disease (COPD) (Acute) Edema of leg (Acute) Postcalcaneal bursitis (Acute) 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 08/18/24. I&D followed by antibiotics Pharyngeal dysphagia (Acute) Hypocalcemia (Acute) Splenic mass (Acute) Burn of lower limb (Acute) Posterior tibial tendon dysfunction (PTTD) of both lower extremities (Acute) Chronic use of opiate for therapeutic purpose (Chronic) Traumatic arthritis of right ankle (Acute) Posterior tibial tendonitis (Acute) Fibromyalgia (Acute) Steroid-induced hyperglycemia (Acute) Hypoxia (Acute) Other disorders of eyelid (Acute) Pyogenic granuloma of eyelid (Acute) Blurry vision, bilateral (Acute) Panlobular emphysema (Acute) Chronic fatigue (Acute) Hesitancy (Acute) Degeneration of lumbar or lumbosacral intervertebral disc (Acute) Complications due to internal orthopedic device, implant, and graft (Acute) Menopausal flushing (Acute) Varicose vein of leg (Acute) Patellar bursitis (Acute) Rosacea (Acute) IBS (irritable bowel syndrome) (Chronic) Lumbar radicular syndrome (Acute) Seasonal allergic rhinitis (Acute) Senile nuclear sclerosis (Acute) Cervical spondylosis (Chronic) Tear film insufficiency (Acute) Blepharitis of both eyes (Acute) Diplopia (Acute) Vitreous syneresis (Acute) Arthritis (Acute) Chronic pain syndrome (Chronic) Anxiety (Chronic) Fatty liver (Acute) Bronchitis (Acute) Degeneration of cervical intervertebral disc (Acute) Brachial neuritis (Acute) Neuralgia and neuritis (Acute) Lumbago (Acute) 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) Chronic knee pain (Acute) Hip pain (Acute) Narcolepsy (Acute) Insomnia (Acute) Restless legs syndrome (Acute) Asthma (Chronic) Migraine (Chronic) Impaired glucose tolerance (Acute) Cervicalgia (Acute) Obesity (BMI 30-39.9) (Acute) Chronic back pain (Acute) Major depressive disorder, recurrent (Acute) History of lung cancer (Acute) Cigarette smoker (Chronic) Medical History COPD (chronic obstructive pulmonary disease) GERD (gastroesophageal reflux disease) Depression Chronic low back pain KATJA (obstructive sleep apnea) Primary cancer of right upper lobe of lung Surgical History H/O gastric bypass H/O cystoscopy S/P fine needle aspiration H/O colonoscopy H/O cervical spine surgery History of fundoplication H/O arthroscopy of shoulder H/O vaginal hysterectomy History of salpingectomy Family History Sister No problems noted. Brother No problems noted. Mother No problems noted. Father No problems noted. Brother No problems noted. Social History Smoking/Tobacco Use Status: Current every day Tobacco Type: cigarettes Tobacco: How many years used: 48 Quit status: has quit before Second Hand Exposure: Yes Smoking risk assessment performed?: Yes Alcohol Intake: current Alcohol Intake frequency: holidays/special occasions only Drug use: Occasionally Substance use type: marijuana Adopted: No Caregiver/Support person: Yes Foster care: No Household members: caregiver Housing: apartment Number of Children: 2 number of grandchildren: 1 Communication Needs: None Education Level: high school Do you need help understanding health information?: Rarely current occupation: Retired Pets and animals: No Sexually active: Yes Do you think of yourself as: straight/heterosexual Current gender identity: female What is your relationship status?: living with partner How often do you talk on the phone with friends or family?: three or more times per week How often do you get together with friends or relatives?: three or more times per week How often do you attend gnosticism or yarsanism services?: 1-3 times per year Do you belong to any clubs or organized social groups?: no Panel score (0-1 are the most socially isolated patients): 2 What type of physical activity do you participate in: walking Duration: 15-30 minutes/day Frequency: 1-2 times per week Shreya/Spiritism: Zoroastrian Special shreya needs: No Seatbelt use: always Helmet use: Yes Drive intox or ride w/intox commercial driver: No Do you feel safe at home: Yes Do you feel safe in your relationship?: Yes Meds Allergies and Home Medications Allergies Allergy/AdvReac Type Severity Reaction Status Date / Time ketorolac (From Toradol) Allergy Severe Anaphylaxis Verified 10/04/24 22:18 ibuprofen (From Motrin) Allergy Intermediate Itching Verified 10/04/24 22:18 Home Medications ?Medication ?Instructions ?Recorded ?Confirmed ?Type blood sugar diagnostic (OneTouch 02/17/24 10/05/24 History Ultra Test strips) doxycycline hyclate 100 mg capsule 100 mg PO DAILY 02/17/24 10/04/24 History duloxetine 60 mg capsule,delayed 120 mg PO DAILY 02/17/24 10/04/24 History release lidocaine HCl 2 % mucosal solution 1 applic mucous membrane .q6 prn 02/17/24 10/04/24 History (Lidocaine Viscous) methylphenidate HCl 20 mg tablet 40 mg PO DAILY 02/17/24 10/04/24 History montelukast 10 mg tablet 10 mg PO DAILY Allergies 02/17/24 10/04/24 History omeprazole 40 mg capsule,delayed 40 mg PO DAILY 02/17/24 10/04/24 History release pregabalin 300 mg capsule 300 mg PO BID 02/17/24 10/04/24 History ropinirole 2 mg tablet 2 mg PO HS 02/17/24 10/04/24 History tiotropium bromide 2.5 2 inh inhalation DAILY 02/17/24 10/04/24 History mcg/actuation mist for inhalation (Spiriva Respimat) benzonatate 150 mg capsule 150 mg PO TID PRN cough #30 caps 02/23/24 10/04/24 Rx benzonatate 100 mg capsule 100 mg PO TID #90 caps 03/20/24 10/04/24 Rx fluticasone propionate 115 2 puff inhalation BID #12 grams 03/20/24 10/04/24 Rx mcg-salmeterol 21 mcg/actuation HFA inhaler (Advair HFA) umeclidinium 62.5 mcg/actuation 1 inh inhalation DAILY #30 ea 03/20/24 10/04/24 Rx blister powder for inhalation (Incruse Ellipta) blood sugar diagnostic (OneTouch 05/03/24 10/05/24 History Ultra Test strips) budesonide-formoterol HFA 80 2 puff inhalation BID 05/03/24 10/04/24 History mcg-4.5 mcg/actuation aerosol inhaler (Symbicort) buspirone 15 mg tablet 15 mg PO .COMPLEX 05/03/24 10/04/24 History hydrocodone 7.5 mg-acetaminophen 1 tab PO Q6H PRN pain 05/03/24 10/04/24 History 325 mg tablet ipratropium 0.5 mg-albuterol 3 mg 3 ml inhalation Q4H PRN 05/03/24 10/04/24 History (2.5 mg base)/3 mL nebulization soln lancets 05/03/24 10/05/24 History levalbuterol tartrate 45 2 inh inhalation Q4H PRN shortness 05/03/24 10/04/24 History mcg/actuation aerosol inhaler of breath or wheezing methocarbamol 500 mg tablet 1,000 mg PO HS 05/03/24 10/04/24 History methylphenidate HCl 10 mg tablet 10 mg PO QPM 05/03/24 10/04/24 History ondansetron HCl 4 mg tablet 4 mg PO Q8H PRN nausea 05/03/24 10/04/24 History sumatriptan succinate 100 mg tablet 100 mg PO ONCE PRN migraine 05/03/24 10/04/24 History headache tiotropium bromide 2.5 2 puff inhalation BID 05/03/24 10/04/24 History mcg/actuation mist for inhalation (Spiriva Respimat) zolpidem 5 mg tablet 5 mg PO QHS 05/03/24 10/04/24 History Exam Narrative Exam Narrative: General: Patient appears older than stated age, thin but not cachectic, moderate respiratory distress with increased tachypnea when attempting to talk with short 2-3 word sentences and gross lip breathing. She is alert and oriented x 3. HEENT:, Cephalic, eyes with pupils equal and reactive to light symmetrically, extraocular movement intact and sclera anicteric. Oral mucosa dry. Neck: Supple without JVD. Back: Normal posture, decreased range of motion especially over the upper thoracic spine and neck, no CVA tenderness. Lungs: Bronchovesicular breath sounds diffusely with fair to poor aeration, no focalizing expiratory rales but expiratory coarse crackles and rhonchi especially with cough. There is increased expiratory phase with expiratory wheeze diffusely. No intercostal retractions. Breast: Exam deferred. Heart: Borderline tachycardic rate with normal rhythm, no murmurs gallops appreciated. Abdomen: Normal contour, soft and nontender to palpation without palpable hepatosplenomegaly. Bowel sounds positive all quadrants. Genitalia/rectal: Exam deferred. Extremities: Without clubbing, cyanosis or pitting edema. Fair capillary refill. Skin: Actinic changes diffusely over sun exposed areas, otherwise normal color, warm and dry. She has superficial bruising over her chest without induration. Neuro: Cranial nerves II through XII is intact, no focalized motor deficits. No tremor. Psych: Anxious with pressured speech, normal mood. No abnormal thought processes. Remote and recent memory grossly intact. Results Imaging Imaging Studies: Exam: XR Chest Exam date and time: 10/04/2024 11:08 PM Age: 63 years old Clinical indication: Cough and shortness of breath; Patient HX: Cough, SOB TECHNIQUE: Imaging protocol: Radiologic exam of the chest. Views: 1 view. COMPARISON: CR XR CHEST 2V PA LATERAL 06/10/2024 8:10 AM FINDINGS: Lungs: Right apical chronic pleuroparenchymal scarring/pleural thickening unchanged. Pleural spaces: See Lungs finding. Heart/Mediastinum: Unremarkable. No cardiomegaly. Bones/joints: Unremarkable. IMPRESSION: 1. No evidence for acute infiltrates. 2. Right apical chronic pleuroparenchymal scarring/fibrosis. Labs 10/04/24 22:35 10/04/24 22:35 Labs: Laboratory Results - last 24 hr 10/04/24 10/04/24 10/04/24 22:35 22:45 23:21 WBC 8.79 RBC 4.40 Hgb 13.6 Hct 41.3 MCV 94 MCH 30.9 MCHC 32.9 RDW 14.3 Plt Count 364 MPV 8.6 Immature Gran % 0.0 Neutrophils % 70.0 Band Neutrophils % 14 Lymphocytes % 7.0 Atypical Lymphs % 2 Monocytes % 7.0 Eosinophils % 0.0 Basophils % 0.0 Nucleated RBC % 0.0 Absolute Neutrophils 7.38 H Absolute Lymphocytes 0.79 L Absolute Monocytes 0.62 Absolute Eosinophils 0.00 Absolute Basophils 0.00 RBC Morphology Normal VBG pH 7.31 VBG pCO2 51 VBG pO2 26 VBG HCO3 26 VBG Total CO2 24 VBG O2 Saturation 51 VBG Base Excess -1 Sodium 145 Potassium 3.4 L Chloride 107 Carbon Dioxide 28.1 Anion Gap 9.9 BUN 13 Creatinine 0.9 Est GFR (CKD-EPI 2021) 70.95 Glucose 129 H Calcium 9.2 Magnesium 2.3 Total Bilirubin 0.29 AST 7 L ALT 14 Alkaline Phosphatase 112 Troponin I < 4 Cancelled Total Protein 8.1 Albumin 3.4 COVID-19 Source Nasopharynx SARS-CoV-2 (PCR) Negative Influenza Type A (PCR) Negative Influenza Type B (PCR) Negative RSV (PCR) Negative Last Vital Signs Temp 37.8 C H 10/04/24 22:13 Pulse 99 H 10/04/24 23:50 Resp 27 H 10/04/24 23:50 BP 122/60 10/04/24 23:45 Pulse Ox 96 10/04/24 23:50 Time Spent Time spent with Patient: >75 minutes Time was spent: preparing to see the patient(eg.review tests), obtaining and/or reviewing separately otained hiistory, ordering medications,tests, procedures, indepentently interpreting results, counseling the patient and care coordination
[2024-10-05] VITALS (23 sets, daily range): BP systolic 111–148; BP diastolic 21–110; PULSE 76–104; RESP 5–32; TEMP 36.4–37.7; O2SAT 88–98
--- NOTE | 2024-10-05 01:41 | W.PC.ACHO ---
Registration Status: Primary Language: Preferred Language: ED Information & Data Chief Complaint SOB 10/04/24 22:13 Chief Complaint SOB 10/04/24 22:05 Other Complaint RespSymp 10/04/24 22:05 Triage Note pt coughing, SOB x1 week, hx 10/04/24 22:05 COPD, asthma. in remission lung cancer. productive of green/yellow phlegm, has been using nebulizer at home . Reports n/v since last night. denies diarrhea. bruising noted on chest from coughing. Medical / Surgical History (Last Reviewed 10/04/24 @ 23:55 by John Valdez) COPD (chronic obstructive pulmonary disease) GERD (gastroesophageal reflux disease) Depression Chronic low back pain KATJA (obstructive sleep apnea) Primary cancer of right upper lobe of lung (Last Reviewed 10/04/24 @ 23:55 by John Valdez) H/O gastric bypass H/O cystoscopy S/P fine needle aspiration H/O colonoscopy H/O cervical spine surgery History of fundoplication H/O arthroscopy of shoulder H/O vaginal hysterectomy History of salpingectomy Most Recent Vital Signs Temperature 37.6 C H 10/05/24 01:08 Pulse 100 H 10/05/24 01:08 Pulse Rhythm Irregular 10/05/24 01:08 Pulse 100 H 10/05/24 00:50 Respiratory Rate 28 H 10/05/24 01:08 Respiratory Effort Short of Breath 10/05/24 01:08 Respiratory Depth Shallow 10/05/24 01:08 Respiratory Pattern Tachypnea 10/05/24 01:08 Blood Pressure 136/81 10/05/24 01:08 Blood Pressure Mean 86 10/05/24 00:46 Blood Pressure Position Sitting 10/04/24 23:55 Pulse Oximetry 95 10/05/24 01:08 Oxygen Delivery Method Nasal Cannula 10/05/24 01:08 Oxygen Flow Rate 2 10/05/24 01:08 Pain Level 10 10/05/24 01:08 Allergies ketorolac (From Toradol) Allergy (Severe, Verified 10/04/24 22:18) Anaphylaxis Tongue swelling ibuprofen (From Motrin) Allergy (Intermediate, Verified 10/04/24 22:18) Itching Precautions Isolation PUI 10/04/24 22:13 IV IV Catheter Type [Right Saline Lock Forearm] IV Catheter Gauge [Right 20 Forearm] Diet Orders Category Date Time Status Regular/Normal [DIET] Nutrition 10/05/24 Breakfast Active Diagnostics 10/05/24 10/04/24 10/04/24 Range/Units 05:35 23:21 22:45 WBC Pending (4.4-10.8) 10^3/uL RBC Pending (3.93-5.22) 10^6/uL Hgb Pending (11.2-15.7) g/dL Hct Pending (36.0-46.0) % MCV Pending (80-95) fL MCH Pending (27.0-33.0) pg MCHC Pending (32.0-36.0) % RDW Pending (11.7-14.6) % Plt Count Pending (130-400) 10^3/uL MPV Pending (8.0-11.0) fL Immature Gran % % Neutrophils % % Band Neutrophils % % Lymphocytes % % Atypical Lymphs % % Monocytes % % Eosinophils % % Basophils % % Nucleated RBC % (0.0-0.3) % Absolute Neutrophils (1.2-6.7) 10^3/uL Absolute Lymphocytes (1.2-3.4) 10^3/uL Absolute Monocytes (0.1-0.8) 10^3/uL Absolute Eosinophils (0.0-0.7) 10^3/uL Absolute Basophils (0.0-0.2) 10^3/uL RBC Morphology VBG pH (7.31-7.41) VBG pCO2 (41-51) mmHg VBG pO2 mmHg VBG HCO3 (23-28) mmol/L VBG Total CO2 (24-29) mmol/L VBG O2 Saturation % VBG Base Excess (-2-3) mmol/L Sodium Pending (136-145) mmol/L Potassium Pending (3.5-5.1) mmol/L Chloride Pending (98-107) mmol/L Carbon Dioxide Pending (21.0-32.0) mmol/L Anion Gap Pending (3-11) mmol/L BUN Pending (7-18) mg/dL Creatinine Pending (0.55-1.02) mg/dL Est GFR (CKD-EPI 2020) Pending (mL/min/1.73m2) Glucose Pending (74-106) mg/dL Calcium Pending (8.5-10.1) mg/dL Magnesium (1.8-2.4) mg/dL Total Bilirubin Pending (0.2-1.0) mg/dL AST Pending (15-37) U/L ALT Pending (14-59) U/L Alkaline Phosphatase Pending (46-116) U/L Troponin I Cancelled (<or=51) ng/L Total Protein Pending (6.4-8.2) g/dL Albumin Pending (3.4-5.0) g/dL COVID-19 Source Nasopharynx SARS-CoV-2 (PCR) Negative (Negative) Influenza Type A (PCR) Negative (Negative) Influenza Type B (PCR) Negative (Negative) RSV (PCR) Negative (Negative) 10/04/24 Range/Units 22:35 WBC 8.79 (4.4-10.8) 10^3/uL RBC 4.40 (3.93-5.22) 10^6/uL Hgb 13.6 (11.2-15.7) g/dL Hct 41.3 (36.0-46.0) % MCV 94 (80-95) fL MCH 30.9 (27.0-33.0) pg MCHC 32.9 (32.0-36.0) % RDW 14.3 (11.7-14.6) % Plt Count 364 (130-400) 10^3/uL MPV 8.6 (8.0-11.0) fL Immature Gran % 0.0 % Neutrophils % 70.0 % Band Neutrophils % 14 % Lymphocytes % 7.0 % Atypical Lymphs % 2 % Monocytes % 7.0 % Eosinophils % 0.0 % Basophils % 0.0 % Nucleated RBC % 0.0 (0.0-0.3) % Absolute Neutrophils 7.38 H (1.2-6.7) 10^3/uL Absolute Lymphocytes 0.79 L (1.2-3.4) 10^3/uL Absolute Monocytes 0.62 (0.1-0.8) 10^3/uL Absolute Eosinophils 0.00 (0.0-0.7) 10^3/uL Absolute Basophils 0.00 (0.0-0.2) 10^3/uL RBC Morphology Normal VBG pH 7.31 (7.31-7.41) VBG pCO2 51 (41-51) mmHg VBG pO2 26 mmHg VBG HCO3 26 (23-28) mmol/L VBG Total CO2 24 (24-29) mmol/L VBG O2 Saturation 51 % VBG Base Excess -1 (-2-3) mmol/L Sodium 145 (136-145) mmol/L Potassium 3.4 L (3.5-5.1) mmol/L Chloride 107 (98-107) mmol/L Carbon Dioxide 28.1 (21.0-32.0) mmol/L Anion Gap 9.9 (3-11) mmol/L BUN 13 (7-18) mg/dL Creatinine 0.9 (0.55-1.02) mg/dL Est GFR (CKD-EPI 2020) 70.95 (mL/min/1.73m2) Glucose 129 H (74-106) mg/dL Calcium 9.2 (8.5-10.1) mg/dL Magnesium 2.3 (1.8-2.4) mg/dL Total Bilirubin 0.29 (0.2-1.0) mg/dL AST 7 L (15-37) U/L ALT 14 (14-59) U/L Alkaline Phosphatase 112 (46-116) U/L Troponin I < 4 (<or=51) ng/L Total Protein 8.1 (6.4-8.2) g/dL Albumin 3.4 (3.4-5.0) g/dL COVID-19 Source SARS-CoV-2 (PCR) (Negative) Influenza Type A (PCR) (Negative) Influenza Type B (PCR) (Negative) RSV (PCR) (Negative) Intake and Output - 24 Hour Total 10/04/24 22:03 thru 10/05/24 01:08 Weight 63.3 kg Falls Risk Assessment History of Falls No History 10/05/24 01:08 Contributing Factors No Factors 10/05/24 01:08 Ambulatory Aids Independent 10/05/24 01:08 Tubes/Lines W/no contributing factors 10/05/24 01:08 Gait Evaluation No gait disturbance 10/05/24 01:08 Fall Total Score 10 10/05/24 01:08 Level of Risk Standard/Low Risk 10/05/24 01:08 Problems (Last Reviewed 10/04/24 @ 23:55 by John Bourgeois) Acute exacerbation of chronic obstructive pulmonary disease (COPD) (Acute) Chronic use of opiate for therapeutic purpose (Acute) v v v v v v v v v Sending and/or Receiving Nurses: Please use comment section below to note any information pertinent to the patient hand-off not included above. Information / Comments: COPD exacerbation, hx of asthma, right side lung ca in remission. gave medications with some improvement. has had coughing, sob, and wheezing for 1 week. ekg normal, bruising on chest from coughing. cont on oxygen 2l at 94%. 20g RFA. negative for covid, rsv, flu Report received from: Candy Shah RN
[2024-10-05] MEDS: Zolpidem 5 MG TAB PO ×2 (02:07→20:31)
[2024-10-05] MEDS: Albuterol/Ipratropium 3 ML UPD VIAL UPD ×3 (05:05→17:00)
[2024-10-05] MEDS: Normal Saline Flush 10 ML SYR IVP ×3 (05:37→20:38)
[2024-10-05] MEDS: methylPREDNISolone SUCC 125 MG VIAL 80 MG IVP ×3 (05:37→22:26)
[2024-10-05 06:23] LABS: HCT 35.6 % (36.0-46.0); HGB 11.7 g/dL (11.2-15.7); MCH 30.6 pg (27.0-33.0); MCHC 32.9 % (32.0-36.0); MCV 93 fL (80-95); MPV 9.2 fL (8.0-11.0); Platelet Count 334 10^3/uL (130-400); RBC 3.82 10^6/uL (3.93-5.22); RDW 14.3 % (11.7-14.6); RDW-SD 48.7 fL
[2024-10-05] MEDS: Normal Saline 1,000 ML 125 ML IV (06:37)
[2024-10-05 06:45] LABS: ALT 6 U/L (14-59); AST 8 U/L (15-37); Alkaline Phosphatase 99 U/L (46-116); Anion Gap 11.5 mmol/L (3-11); BUN 18 mg/dL (7-18); Bilirubin, Total 0.19 mg/dL (0.2-1.0); CO2 22.5 mmol/L (21.0-32.0); Calcium 8.9 mg/dL (8.5-10.1); Chloride 108 mmol/L (98-107); Estimated GFR 62.52 (mL/min/1.73m2); Glucose 270 mg/dL (74-106); Potassium 3.3 mmol/L (3.5-5.1); Sodium 142 mmol/L (136-145); Total Protein 7.4 g/dL (6.4-8.2)
[2024-10-05] MEDS: Enoxaparin 40 MG/0.4 ML SYR SC (08:04)
[2024-10-05] MEDS: Azithromycin 250 MG TAB 500 MG PO (08:04)
[2024-10-05] MEDS: Omeprazole 20 MG CAPCR 40 MG PO (08:05)
[2024-10-05] MEDS: Pregabalin 150 MG CAP 300 MG PO ×2 (08:05→20:32)
[2024-10-05] MEDS: Benzonatate 100 MG CAP PO ×3 (08:05→20:32)
[2024-10-05] MEDS: Montelukast 10 MG TAB PO (08:05)
[2024-10-05] MEDS: DULoxetine 30 MG CAP 120 MG PO (08:05)
[2024-10-05 08:18] LABS: Bilirubin Negative (Negative); Blood Negative (Negative); Clarity Clear (Clear); Glucose Negative (Negative); Ketones 15 mg/dL (Negative); Leukocyte Esterase Negative (Negative); Nitrite Negative (Negative); Specific Gravity 1.025 (1.005-1.025); Urobilinogen 0.2 mg/dL (Up to 0.2); pH 6.5 (5-8)
[2024-10-05 08:28] LABS: Bacteria Few HPF (Negative); C & S Indicated? No; Casts Negative LPF (Negative); Crystals Negative HPF (Negative); Epithelial Cells Many HPF (Negative); Mucus Negative (Negative); Other Cells Negative (Negative); RBC 0-2 HPF (0-2)
[2024-10-05] MEDS: Budesonide/Formoterol 80/4.5 6.9 GM 60 PUFF INH IH ×2 (08:35→22:26)
[2024-10-05] MEDS: Methylphenidate 10 MG TAB 40 MG PO (08:54)
[2024-10-05] MEDS: Insulin Aspart 300 UNITS/3 ML PEN SC ×4 (08:54→22:25)
--- NOTE | 2024-10-05 09:19 | W.PM.PROGNOT ---
Date of Service Date of service: 10/05/24 Time of Service: 09:19 Assessment and Plan Assessment and plan (1) Acute exacerbation of chronic obstructive pulmonary disease (COPD): Start date: 10/04/24 Status: Acute Assessment and plan: Hx of right upper lobe lung cancer now in remission status post radiation therapy- resumed smoking / SO also smoke in the house Cold symptoms for 1 week. She has a productive cough of brown sputum, increased cough X-ray does not reveal any infiltrates, no fever , no leukocytosis ED initiated Zithromax with IV Solu-Medrol and aggressive nebulizer treatments for new onset of hypoxemia with recurrent O2 need after being off for months to years when not smoking. Continue azithromycin and IV methylprednisolone and transition to oral prednisone in AM VBG completed to day in the setting of LOC changes most likely d/t narcolepsy DX(on Ritalin) showed PH 7.32, PCO2 33- not a CO2 retainer Continue scheduled and PRN nebulizer Tx IS and Vibrapep Mucinex Waen O2 as tolerated for sat> 88%- 92% patient had vicodin and methylphenidate in her bag in bed- Given to pharmacy to return on d/c Continue home dose methylphenidate (2) Hypoxia: Start date: 10/04/24 Status: Acute Assessment and plan: As above (3) Cigarette smoker: Status: Chronic Assessment and plan: On NRT (4) Primary cancer of right upper lobe of lung: Assessment and plan: In remission status post radiation. Outpatient follow-up (5) Steroid-induced hyperglycemia: Start date: 10/04/24 Status: Acute Assessment and plan: Continue Clara before meals and at bedtime with SSI coverage (6) Depression: Assessment and plan: continue home medicine regimen Urine drug screen with increase risk of drug misuse, is positive for cocaine and opiates. (7) Chronic use of opiate for therapeutic purpose: Status: Chronic Assessment and plan: Patient is on chronic hydrocodone daily for back pain. Perceptional medicine brought to pharmacy today -return to patient when discharge Continue home medicine regiment for chronic back pain (8) Cervical spondylosis: Status: Chronic Assessment and plan: As above Discussed with Dr. Pineda Subjective Subjective Interval history since last seen: Initially when seen, the patient reported sleeping well overnight, no reports of chills or fevers, eating and drinking well without nausea vomiting; reporting cough productive of green-yellow sputum. Later in the morning, the RN was alarmed by patient's mentation. The patient reported confusion and increased sleepiness. Agrees for provider to search her personal belongings/Vicodin and Ritalin retrieved from bags on bed and given to pharmacy. 1:00 PM patient reporting feeling like herself again. Exam Narrative Exam Narrative: Constitutional The patient is sitting in bed comfortable without acute distress HENMT: Facial structures with normal appearance Eyes: Well aligned, intact ROM Neck: Normal ROM, no meningeal signs Neuro:alert and oriented to self, person, place and situation. No neurological focal deficit, PERRLA on ambient light, cranial nerve II-XII intact Resp: Speaks in shortl sentences, slurring while falling asleep- more intelliglible when fully awake, decreased breath sounds R>L, bilat expiratory wheezing to lung dalal Cardio: regular rhythm, S1, S2, no murmur, positive pulses to all 4 ext GI: Abdomen is not distended, soft and non tender, bowel sounds are present : Negative Costovertebral angle tenderness Back/spine/Pelvis: No back tenderness, normal alignment Integumentary: No skin lesions or rash Extremities: strength 5/5 to bilateral lower and upper extremities Psych: RASS 0, congruent mood and normal affect. Objective Last Vital Signs Temp 37.0 C 10/05/24 07:50 Pulse 83 10/05/24 07:50 Resp 20 10/05/24 07:50 BP 115/79 10/05/24 07:50 Pulse Ox 94 10/05/24 08:38 Laboratory Results - last 24 hr 10/04/24 10/04/24 10/04/24 22:35 22:45 23:21 WBC 8.79 RBC 4.40 Hgb 13.6 Hct 41.3 MCV 94 MCH 30.9 MCHC 32.9 RDW 14.3 Plt Count 364 MPV 8.6 Immature Gran % 0.0 Neutrophils % 70.0 Band Neutrophils % 14 Lymphocytes % 7.0 Atypical Lymphs % 2 Monocytes % 7.0 Eosinophils % 0.0 Basophils % 0.0 Nucleated RBC % 0.0 Absolute Neutrophils 7.38 H Absolute Lymphocytes 0.79 L Absolute Monocytes 0.62 Absolute Eosinophils 0.00 Absolute Basophils 0.00 RBC Morphology Normal VBG pH 7.31 VBG pCO2 51 VBG pO2 26 VBG HCO3 26 VBG Total CO2 24 VBG O2 Saturation 51 VBG Base Excess -1 Sodium 145 Potassium 3.4 L Chloride 107 Carbon Dioxide 28.1 Anion Gap 9.9 BUN 13 Creatinine 0.9 Est GFR (CKD-EPI 2020) 70.95 Glucose 129 H Calcium 9.2 Magnesium 2.3 Total Bilirubin 0.29 AST 7 L ALT 14 Alkaline Phosphatase 112 Troponin I < 4 Cancelled Total Protein 8.1 Albumin 3.4 Urine Color Urine Clarity Urine pH Ur Specific [place] Urine Protein Urine Ketones Urine Blood Urine Nitrite Urine Bilirubin Urine Urobilinogen Ur Leukocyte Esterase Urine RBC Urine WBC Ur Epithelial Cells Urine Crystals Urine Bacteria Urine Casts Urine Mucus Urine Other Ur Culture Indicated? Urine Glucose COVID-19 Source Nasopharynx SARS-CoV-2 (PCR) Negative Influenza Type A (PCR) Negative Influenza Type B (PCR) Negative RSV (PCR) Negative 10/05/24 10/05/24 06:00 07:51 WBC 7.60 RBC 3.82 L Hgb 11.7 Hct 35.6 L MCV 93 MCH 30.6 MCHC 32.9 RDW 14.3 Plt Count 334 MPV 9.2 Immature Gran % Neutrophils % Band Neutrophils % Lymphocytes % Atypical Lymphs % Monocytes % Eosinophils % Basophils % Nucleated RBC % Absolute Neutrophils Absolute Lymphocytes Absolute Monocytes Absolute Eosinophils Absolute Basophils RBC Morphology VBG pH VBG pCO2 VBG pO2 VBG HCO3 VBG Total CO2 VBG O2 Saturation VBG Base Excess Sodium 142 Potassium 3.3 L Chloride 108 H Carbon Dioxide 22.5 Anion Gap 11.5 H BUN 18 Creatinine 1.0 Est GFR (CKD-EPI 2020) 62.52 Glucose 270 H Calcium 8.9 Magnesium Total Bilirubin 0.19 L AST 8 L ALT 6 L Alkaline Phosphatase 99 Troponin I Total Protein 7.4 Albumin 3.0 L Urine Color Yellow Urine Clarity Clear Urine pH 6.5 Ur Specific [place] 1.025 Urine Protein 100 H Urine Ketones 15 H Urine Blood Negative Urine Nitrite Negative Urine Bilirubin Negative Urine Urobilinogen 0.2 Ur Leukocyte Esterase Negative Urine RBC 0-2 Urine WBC 3-5 Ur Epithelial Cells Many Urine Crystals Negative Urine Bacteria Few Urine Casts Negative Urine Mucus Negative Urine Other Negative Ur Culture Indicated? No Urine Glucose Negative COVID-19 Source SARS-CoV-2 (PCR) Influenza Type A (PCR) Influenza Type B (PCR) RSV (PCR) Time Spent with Patient Time Spent with Patient: >50 minutes Time was spent: preparing to see the patient(eg.review tests), obtaining and/or reviewing separately otained hiistory, ordering medications,tests, procedures, referring, communicating with other health reservoir caretaker, indepentently interpreting results, counseling the patient and care coordination
--- NOTE | 2024-10-05 09:50 | PDOC.CMIN ---
Date of service: 10/05/24 Time of Service: 09:50 Care Management Initial Assmt Initial Assessment Reason for Hospitalization: COPD exacerbation, hypoxemia Functional Status/Living Situation Patient Presentation: Liset was admitted through the ED late last night with c/o increasing SOB, wheezing and coughing. She has a history of COPD and lung CA, and is still smoking. Her learning operations specialist is also a smoker. Per Liset's COA C CM, Km Dotson, the home smells of smoke, and there may also be mold in the apartment. Tristin was to bring them an air purifier this week. Tristin stated that there are no HH services in the home at present. Tristin was also helping to get a nebulizer for Liset to use in her home. There was some paperwork mix up, and the PCP office was to complete that and send in. LINDA did leave a VM with the Tetryl Dissolver Operator at her PCP office to check on this. Regional Director, Efren, is Liset's paid caregiver through Lm. Tristin stated to CM that he has no concerns in the home, except the smell of smoke. Liset has a history of narcolepsy, and per daughter, Yadira, she is usually very confused when she comes out of these spells. This happened with Liset today. When CM met with Liset, she was sitting up in the bed, alert and talking with her daughter. Her speech was garbled at times, but she seemed mostly clear in thought. She was very friendly. Liset wanted Yadira to be on her HIPAA, and a new HIPAA form was filled out with Yadira and Will as contacts. Town of Residence: [facility] Resides with: Other (Lives with learning operations specialist and paid caregiver, Will) Significant Other/Family: Out of area (daughter, Yadira Tanner, [place]) Caregiver/Guardian: Efren Bateman is Liset's paid caregiver through [employer]m. Employment Status: Retired Instrumental Activities of Daily Living (ADLs): Requires support with Dishes/food prep, Starch Mangle Tender, Groceries, Laundry and Transportation Medications Medication Management: No Issues/Barriers identified Advance Directives Advance Directives: Do you have an Advance Directive: Kristi 02/17/24 11:02 AD On File at [facility]: N 02/17/24 08:39 Date Asked 10/04/24 10/04/24 22:30 AD Date Reviewed COLST On File at [facility] COLST Date Scanned Code Status Resuscitation Status Full Code Portal Pt does not currently have a portal and education provided: Yes Insurance Coverage/Financial Issues Insurance: [facility] Medicare replacement/ [facility] Medicaid Choices for Care Care Team Visit Care Team Role Provider Type Manjeet Lynne DO Primary Care Provider OSTEOPATHIC DOCTOR Jean Rios MD Emergency Provider [facility] STAFF PHYSICIAN John Valdez Admit Provider NON-[facility] STAFF PHYSICIAN Attending Provider Other: Liset is also followed by [facility] pulmonolgy , Dr. Kang for gynecology, and [facility] oncology follows her lung CA. Her [place] on Aging Case Manger is Km Dotson. Discharge Potential Discharge Needs: PT Evaluation, PCP F/U Appt and Other (has pulmonary f/u with Juliette Laraabe on 10/23/24 ) Anticipated Barriers to Discharge: None Identified Patient/Family Education Needs: Review discharge instructions, discuss Ask Me Three Transportation: Private vehicle (with Will) Plan: Anticipate that Liset will be discharged home with new PT . She will f/u with her PCP and pulmonolgy and continue per her plan of care. She will transport home in a private vehicle with Will. CM will continue to follow and to update the plan as needed. Social Determinants of Health Screening Social Determinants of Health last assessed: 10/05/24 Will the Patient Participate in the Screening?: Yes Do you worry about having a steady place to live?: no Problems where you live: no known problems In the past 12 months, have you had to go without electric, gas, oil or water in your home?: no Have you or anyone in your house had to go without enough food to eat?: yes 1. Within the past 12 months, we worried whether our food would run out before we got money to buy more.: Sometimes true 2. Within the past 12 months, the food we bought just didn't last and we didn't have money to get more.: Sometimes true Referred to:: Not Applicable Has lack of transportation kept you from medical appointments or from doing things needed for daily living?: no Has anyone in your life made you feel unsafe or unsupported?: no How hard is it for you to pay for the very basics like food, housing, medical care, and heating? Would you say it is:: Somewhat hard Do you want help finding or keeping work or a job?: I do not need or want help If for any reason you need help with day-to-day activities such as bathing, preparing meals, shopping, managing finances, etc., do you get the help you need?: I don?t need any help How often do you feel lonely or isolated from those around you?: Never Do you speak a language other than Sinhala at home?: No Does the patient want assistance with any of the above?: No Health Related Social Needs Health related social needs: food insecurity (Z59.41) and problems related to housing/economic circumstances (Z59.89) PFSH All Active Problems Acute exacerbation of chronic obstructive pulmonary disease (COPD) (Acute) Edema of leg (Acute) Postcalcaneal bursitis (Acute) 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 08/18/24. I&D followed by antibiotics Pharyngeal dysphagia (Acute) Hypocalcemia (Acute) Splenic mass (Acute) Burn of lower limb (Acute) Posterior tibial tendon dysfunction (PTTD) of both lower extremities (Acute) Chronic use of opiate for therapeutic purpose (Chronic) Traumatic arthritis of right ankle (Acute) Posterior tibial tendonitis (Acute) Fibromyalgia (Acute) Steroid-induced hyperglycemia (Acute) Hypoxia (Acute) Other disorders of eyelid (Acute) Pyogenic granuloma of eyelid (Acute) Blurry vision, bilateral (Acute) Panlobular emphysema (Acute) Chronic fatigue (Acute) Hesitancy (Acute) Degeneration of lumbar or lumbosacral intervertebral disc (Acute) Complications due to internal orthopedic device, implant, and graft (Acute) Menopausal flushing (Acute) Varicose vein of leg (Acute) Patellar bursitis (Acute) Rosacea (Acute) IBS (irritable bowel syndrome) (Chronic) Lumbar radicular syndrome (Acute) Seasonal allergic rhinitis (Acute) Senile nuclear sclerosis (Acute) Cervical spondylosis (Chronic) Tear film insufficiency (Acute) Blepharitis of both eyes (Acute) Diplopia (Acute) Vitreous syneresis (Acute) Arthritis (Acute) Chronic pain syndrome (Chronic) Anxiety (Chronic) Fatty liver (Acute) Bronchitis (Acute) Degeneration of cervical intervertebral disc (Acute) Brachial neuritis (Acute) Neuralgia and neuritis (Acute) Lumbago (Acute) 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) Chronic knee pain (Acute) Hip pain (Acute) Narcolepsy (Acute) Insomnia (Acute) Restless legs syndrome (Acute) Asthma (Chronic) Migraine (Chronic) Impaired glucose tolerance (Acute) Cervicalgia (Acute) Obesity (BMI 30-39.9) (Acute) Chronic back pain (Acute) Major depressive disorder, recurrent (Acute) History of lung cancer (Acute) Cigarette smoker (Chronic) Medical History COPD (chronic obstructive pulmonary disease) GERD (gastroesophageal reflux disease) Depression Chronic low back pain KATJA (obstructive sleep apnea) Primary cancer of right upper lobe of lung Surgical History H/O gastric bypass H/O cystoscopy S/P fine needle aspiration H/O colonoscopy H/O cervical spine surgery History of fundoplication H/O arthroscopy of shoulder H/O vaginal hysterectomy History of salpingectomy Family History Sister No problems noted. Brother No problems noted. Mother No problems noted. Father No problems noted. Brother No problems noted. Social History Smoking/Tobacco Use Status: Current every day Tobacco Type: cigarettes Tobacco: How many years used: 48 Quit status: has quit before Second Hand Exposure: Yes Smoking risk assessment performed?: Yes Alcohol Intake: current Alcohol Intake frequency: holidays/special occasions only Drug use: Occasionally Substance use type: marijuana Adopted: No Caregiver/Support person: Yes Foster care: No Household members: caregiver Housing: apartment Number of Children: 2 number of grandchildren: 1 Communication Needs: None Education Level: high school Do you need help understanding health information?: Rarely current occupation: Retired Pets and animals: No Sexually active: Yes Do you think of yourself as: straight/heterosexual Current gender identity: female What is your relationship status?: living with partner How often do you talk on the phone with friends or family?: three or more times per week How often do you get together with friends or relatives?: three or more times per week How often do you attend evangelical or hoahaoism services?: 1-3 times per year Do you belong to any clubs or organized social groups?: no Panel score (0-1 are the most socially isolated patients): 2 What type of physical activity do you participate in: walking Duration: 15-30 minutes/day Frequency: 1-2 times per week Shreya/Baptism: Amish Special shreya needs: No Seatbelt use: always Helmet use: Yes Drive intox or ride w/intox driver material handler: No Do you feel safe at home: Yes Do you feel safe in your relationship?: Yes Readmission Within the Past 30 Days Yes or No: No Anticipated HH Services Anticipated HH Services at Discharge [facility] Needed, PT Following Provider:
[2024-10-05] MEDS: Potassium Chloride 20 MEQ TABCR 40 MEQ PO (09:58)
[2024-10-05] MEDS: POTASSIUM CHLORIDE 20 MEQ/100 ML BAG 50 MEQ IV_INF (09:59)
[2024-10-05] MEDS: Nicotine 21 MG/24 HR PATCH TD (09:59)
--- NOTE | 2024-10-05 10:17 | W.NUTRFU ---
Date of service: 10/05/24 Time of Service: 10:18 Nutrition Note NOTE: PT being treated for exac of COPD. Received 2 iv doses of steroids and ordered for 40mg prednisone daily - glucose has been high - 270 fasting this morning and 230 at breakfast. fingersticks ordered at meals and hs. ~5kg weight loss noted over the last 6 months or so. ordered for regular diet and sensitive sliding scale novolog for glucose corrections at meals and 22:00. would recommend 10 insulin glargine HS while on steroids along with her corrections. Would also recommend A1C to rule out diabetes as I don't believe she is on steroids at home and should have a pretty normal A1c. Boost glucose control ONS will be offered for additional kcals and protein will monitor glucose, weight, intake, labs Time Spent in Nutritional Counseling and Treatment: 0
[2024-10-05 11:16] LABS: BE (Venous) -7 mmol/L (-2-3); HCO3 (Venous) 19 mmol/L (23-28); O2 Sat (Venous) 97 %; TCO2 (Venous) 18 mmol/L (24-29); pCO2 (Venous) 37 mmHg (41-51); pH (Venous) 7.32 (7.31-7.41); pO2 (Venous) 77 mmHg
[2024-10-05 11:40] LABS: *AMPHETAMINES SCREEN URINE Negative (Negative); *BARBITURATES SCREEN URINE Negative (Negative); *BENZODIAZEPINES SCREEN URINE Negative (Negative); Cannabinoids THC Negative (Negative); Cocaine Screen,Urine Positive (Negative); METHADONE URINE SCREEN Negative (Negative); OPIATES URINE SCREEN Positive (Negative)
[2024-10-05 11:43] LABS: Tricyclic Antidepressants Negative (Negative)
[2024-10-05] MEDS: guaiFENesin 600 MG TABCR PO ×2 (12:47→20:31)
[2024-10-05] MEDS: Methocarbamol 500 MG TAB 1000 MG PO (20:31)
[2024-10-05] MEDS: busPIRone 15 MG TAB PO (20:32)
[2024-10-05] MEDS: rOPINIRole 1 MG TAB 2 MG PO (21:16)
[2024-10-06] VITALS (11 sets, daily range): BP systolic 122–136; BP diastolic 69–94; PULSE 89–112; RESP 5–22; TEMP 36.2–37.1; O2SAT 85–100
[2024-10-06] MEDS: Albuterol/Ipratropium 3 ML UPD VIAL UPD ×4 (05:38→23:51)
[2024-10-06] MEDS: Insulin Aspart 300 UNITS/3 ML PEN SC ×4 (08:35→21:27)
[2024-10-06] MEDS: DULoxetine 30 MG CAP 120 MG PO (08:36)
[2024-10-06] MEDS: Nicotine 21 MG/24 HR PATCH TD (08:36)
[2024-10-06] MEDS: Enoxaparin 40 MG/0.4 ML SYR SC (08:36)
[2024-10-06] MEDS: Azithromycin 250 MG TAB 500 MG PO (08:37)
[2024-10-06] MEDS: predniSONE 20 MG TAB 40 MG PO (08:37)
[2024-10-06] MEDS: Pregabalin 150 MG CAP 300 MG PO ×2 (08:37→20:23)
[2024-10-06] MEDS: Omeprazole 20 MG CAPCR 40 MG PO (08:38)
[2024-10-06] MEDS: busPIRone 15 MG TAB PO ×3 (08:38→20:22)
[2024-10-06] MEDS: Montelukast 10 MG TAB PO (08:38)
[2024-10-06] MEDS: Methylphenidate 10 MG TAB 40 MG PO (08:38)
[2024-10-06] MEDS: guaiFENesin 600 MG TABCR PO ×2 (08:39→20:24)
[2024-10-06] MEDS: Benzonatate 100 MG CAP PO ×3 (08:39→20:23)
[2024-10-06] MEDS: Normal Saline Flush 10 ML SYR IVP ×3 (08:39→20:24)
[2024-10-06] MEDS: Budesonide/Formoterol 80/4.5 6.9 GM 60 PUFF INH IH ×2 (08:43→20:20)
--- NOTE | 2024-10-06 09:41 | PDOC.CMPRO ---
Date of service: 10/06/24 Time of Service: 09:41 Care Management Progress Note Progress Note Text Progress Note Text: Liset was sitting up in the bedside chair when CM met with her today. She was very pleasant. Liset seemed like her mentation had improved from when we met yesterday. Her thoughts were clear and linear. Liset stated that her O2 level dropped quite a bit when she walked with PT today, but she has been able to be without O2 at rest. She does not feel ready to go home yet, and her live-in caregiver was in the ER today, as well. Liset is agreeable to new HH RN and PT. Discharge Potential Discharge Needs: PCP F/U Appt and Other (pulmonolgy appt on 10/23) Anticipated Barriers to Discharge: None Identified Transportation: Private vehicle (with Will) Plan: Anticipate that Liset will be discharged home with new PT and RN . She will f/u with her PCP and pulmonolgy and continue per her plan of care. She will transport home in a private vehicle with Will. CM will continue to follow and to update the plan as needed. Social Determinants of Health Screening Social Determinants of Health last assessed: 10/06/24 Will the Patient Participate in the Screening?: Yes Do you worry about having a steady place to live?: no Problems where you live: no known problems In the past 12 months, have you had to go without electric, gas, oil or water in your home?: no Have you or anyone in your house had to go without enough food to eat?: yes 1. Within the past 12 months, we worried whether our food would run out before we got money to buy more.: Sometimes true 2. Within the past 12 months, the food we bought just didn't last and we didn't have money to get more.: Sometimes true Referred to:: Not Applicable Has lack of transportation kept you from medical appointments or from doing things needed for daily living?: no Has anyone in your life made you feel unsafe or unsupported?: no How hard is it for you to pay for the very basics like food, housing, medical care, and heating? Would you say it is:: Somewhat hard Do you want help finding or keeping work or a job?: I do not need or want help If for any reason you need help with day-to-day activities such as bathing, preparing meals, shopping, managing finances, etc., do you get the help you need?: I don?t need any help How often do you feel lonely or isolated from those around you?: Never Do you speak a language other than Divehi at home?: No Does the patient want assistance with any of the above?: No Health Related Social Needs Health related social needs: food insecurity (Z59.41) and problems related to housing/economic circumstances (Z59.89) Anticipated HH Services Anticipated HH Services at Discharge [facility] Needed, PT and RN Following Provider:
--- NOTE | 2024-10-06 12:27 | PGE_ITS ---
Date of Service Date of service: 10/06/24 Time of Service: 12:27 Assessment and Plan Assessment and plan (1) Acute exacerbation of chronic obstructive pulmonary disease (COPD): Start date: 10/04/24 Status: Acute Assessment and plan: Hx of right upper lobe lung cancer now in remission status post radiation therapy- resumed smoking / SO also smoke in the house Cold symptoms for 1 week. She has a productive cough of brown sputum, increased cough X-ray was negative for infiltrates, no fever , no leukocytosis 10/06/24: POCUS lungs: LLL Pneumonia Continue Zithromax 10/06/2024 Start ceftriaxone Continue oral prednisone No need for IV furosemide with collapsible IVC over 50% Continue scheduled and PRN nebulizer Tx IS and Vibrapep Continue Mucinex Wean O2 as tolerated for sat> 88%- 92% Continue home dose methylphenidate for treatment of narcolepsy (2) Left lower lobe pneumonia: Status: Acute Assessment and plan: As per POCUS exam: LLL air bronchograms and B-lines Already on Zithromax Start IV ceftriaxone (3) Hypoxia: Start date: 10/04/24 Status: Acute Assessment and plan: As above (4) Cigarette smoker: Status: Chronic Assessment and plan: Continue NRT (5) Primary cancer of right upper lobe of lung: Assessment and plan: In remission status post radiation. Outpatient follow-up (6) Steroid-induced hyperglycemia: Start date: 10/04/24 Status: Acute Assessment and plan: Continue fingerstick before meals and at bedtime with SSI coverage (7) Depression: Assessment and plan: continue home medicine regimen Urine drug screen with increase risk of drug misuse, is positive for cocaine and opiates. (8) Chronic use of opiate for therapeutic purpose: Status: Chronic Assessment and plan: Patient is on chronic hydrocodone daily for back pain. Personal medicines brought to pharmacy on 10/05 -return to patient when discharge Continue home medicine regiment for chronic back pain (9) Cervical spondylosis: Status: Chronic Assessment and plan: As above Discussed with Dr. Pineda Subjective Subjective Patient reports: feels better, tolerating liquids well, tolerating a regular diet, voiding w/o difficulty and shortness of breath (improving ); denies diarrhea, nausea or vomiting Exam Narrative Exam Narrative: Constitutional: No acute distress Neuro:alert and oriented X3 ; No neurological focal deficit Resp: decreased basilar breath sounds R>L, coarse upper lung dalal Cardio: regular rhythm, S1, S2, no murmur GI: Abdomen is not distended, soft and non tender, bowel sounds are present Extremities: strength 5/5 to bilateral lower and upper extremities Psych: RASS 0, congruent mood and normal affect. Objective Last Vital Signs Temp 36.8 C 10/06/24 11:45 Pulse 97 H 10/06/24 11:45 Resp 16 10/06/24 11:45 BP 122/85 10/06/24 11:45 Pulse Ox 90 L 10/06/24 11:45 Time Spent with Patient Time Spent with Patient: >50 minutes Time was spent: preparing to see the patient(eg.review tests), obtaining and/or reviewing separately otained hiistory, ordering medications,tests, procedures, referring, communicating with other health career development engineer, indepentently interpreting results, counseling the patient and care coordination Pocus Exam Limited Cardiac Exam DATE OF EXAM: 10/06/24 TIME OF EXAM: 15:32 PROVIDER THAT PERFORMED THE STUDY: Franco Gan IS THIS A REPEAT EXAM DURING THIS ENCOUNTER: no REASON FOR EXAM: Dyspnea VISUALIZED STRUCTURES: four chambers, left atrium, left ventricle, LVOT, right atrium, right ventricle, aortic valve, mitral valve and IVC VIEW OBTAINED: Apical 4-Chamber, Parasternal long-axis, Parasternal short-axis and Subxiphoid DIFFERENTIAL DIAGNOSES: IVC non-plethoric collapsing > 50% Exam complete Limited Thoracic Lung Exam DATE OF EXAM: 10/06/24 TIME OF EXAM: 15:28 PROVIDER THAT PERFORMED THE STUDY: Franco Gan IS THIS A REPEAT EXAM DURING THIS ENCOUNTER: No REASON FOR EXAM: Shortness ofBreath VISUALIZED STRUCTURES: right anterior, left anterior, right lateral and left lateral DIFFERENTIAL DIAGNOSES: Left lower lobe pneumonia: localized B-lines and air bronchogram, no peural effusion Right lung: A-lines Exam complete
--- NOTE | 2024-10-06 12:50 | PT.INIE ---
PT Notes Visit Reasons: Exacerbation COPD with Hypoxemia Inpatient Physical Therapy Evaluation Date: 10/06/24 Referring Doctor: Alea Chapin NP PT Orders: PT CONSULT: Safety consult for d/c Precautions: fall, standard Patient Profile/Admitting Diagnosis: Liset was admitted through the ED 10/04/24 with c/o increasing SOB, wheezing and coughing. She has a history of COPD and lung CA, and is still smoking. Diagnosed with acute exacerbation of COPD and hypoxia. Social History/Home Situation: Patient resides in an apartment with her significant other, who is present at time of consultation. States that she walks independently or with a cane in the apartment, but uses a 4WW when walking in the community. States that the 4WW was issued to her many years ago (unsure how many) and that she has since lost it. Equipment Owned/DME: cane Subjective: Liset states that she feels terrible. He significant other is visiting at time of consult. Objective: General Observation: Resting in bed, IV in RUE. Appears older than stated age. Significant other trying to get into bed with her as PT entering. Very short of breath, with weak voice at initiation of session. Demonstrates decreased safety awareness, climbing out of bed at foot of bed due to arm rail being elevated on that side. Mental Status: A&Ox3. Vital Signs: SaO2 on room air 85%. Drops to 79% with ambulation. ROM: Right Upper Extremity: WFL Left Upper Extremity: WFL Right Lower Extremity: WFL Left Lower Extremity: WFL Strength: Right Upper Extremity: 3/5 or greater for gross motion Left Upper Extremity: 3/5 or greater for gross UE motion Right Lower Extremity: Hip flexion 4/5. Quads 4+/5. DF 5/5 Left Lower Extremity: Hip flexion 4/5. Quads 4+/5. DF 5/5 Bed Mobility/Transfers: supine-sit: independent sit-stand: supervision stand-sit: supervision Gait: Ambulates 25' with FWW, CGA. Cued for pacing, although demonstrates increasing ALEJANDRE. SaO2 drops to 79% on room air. Requires pursed lip breathing in sitting position x 2 minutes for recovery to 84%. Balance: Static Sitting: normal Dynamic Sitting: normal Static Standing: fair Dynamic Standing: fair Special Tests: Mobility Limitations Standardized Measure [facility] 6 clicks Basic Mobility Inpatient Short Form: Raw Score: 21 CMS Score: 29% Informed Consent/Education: Patient instructed in purpose of PT consult and plan of care. Treatment: Initial Evaluation (50671) Assessment: Patient is a 63 year old female referred to physical therapy services for safety consult for discharge during acute care stay for management of COPD exacerbation. Patient presents with clinical signs and symptoms consistent with diagnosis, as demonstrated by the following impairment level findings: 1. decreased activity tolerance 2. oxygen desaturation with short distance ambulation 3. decreased LE strength 4. ALEJANDRE Impairments are contributing to the following functional limitations: 1. decreased tolerance to household distance ambulation 2. decreased safety awareness increasing risk for falls Patient is assessed as Moderate 42057 complexity based on the following: History: As above Examination: functional limitations as noted above Presentation: evolving due to acute medical status Decision Making: moderate complexity Goals: Goals X1 week 1. Supine-Sit : supervision 2. Sit-Supine : supervision 3. Sit-Stand : supervision 4. Stand-Sit : supervision 5. Bed-Chair : supervision with FWW 6. Chair-Bed : supervision with FWW 7. Gait : supervision with FWW x 50' Plan of Care/Treatment Plan: 1-2x/day, 7 days/week x 1 week. Plan of care has been reviewed with the BOTTOMER OPERATOR providing the service under Physical Therapy direction. Initiate Physical Therapy intervention for strengthening, bed mobility, transfers, gait, stairs, balance training, use of assistive device. DISCHARGE RECOMMENDATIONS: Home with HH PT Ambulates in community with 4WW although has lost her walker that was previously issued to her many years ago; recommend discussing obtaining new walker through her CM in the community. TREATMENT CODE/TIME: 2123-6408 ([id number]) [facility] All Active Problems Acute exacerbation of chronic obstructive pulmonary disease (COPD) (Acute) Edema of leg (Acute) Postcalcaneal bursitis (Acute) 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 08/18/24. I&D followed by antibiotics Pharyngeal dysphagia (Acute) Hypocalcemia (Acute) Splenic mass (Acute) Burn of lower limb (Acute) Posterior tibial tendon dysfunction (PTTD) of both lower extremities (Acute) Chronic use of opiate for therapeutic purpose (Chronic) Traumatic arthritis of right ankle (Acute) Posterior tibial tendonitis (Acute) Fibromyalgia (Acute) Steroid-induced hyperglycemia (Acute) Hypoxia (Acute) Other disorders of eyelid (Acute) Pyogenic granuloma of eyelid (Acute) Blurry vision, bilateral (Acute) Panlobular emphysema (Acute) Chronic fatigue (Acute) Hesitancy (Acute) Degeneration of lumbar or lumbosacral intervertebral disc (Acute) Complications due to internal orthopedic device, implant, and graft (Acute) Menopausal flushing (Acute) Varicose vein of leg (Acute) Patellar bursitis (Acute) Rosacea (Acute) IBS (irritable bowel syndrome) (Chronic) Lumbar radicular syndrome (Acute) Seasonal allergic rhinitis (Acute) Senile nuclear sclerosis (Acute) Cervical spondylosis (Chronic) Tear film insufficiency (Acute) Blepharitis of both eyes (Acute) Diplopia (Acute) Vitreous syneresis (Acute) Arthritis (Acute) Chronic pain syndrome (Chronic) Anxiety (Chronic) Fatty liver (Acute) Bronchitis (Acute) Degeneration of cervical intervertebral disc (Acute) Brachial neuritis (Acute) Neuralgia and neuritis (Acute) Lumbago (Acute) 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) Chronic knee pain (Acute) Hip pain (Acute) Narcolepsy (Acute) Insomnia (Acute) Restless legs syndrome (Acute) Asthma (Chronic) Migraine (Chronic) Impaired glucose tolerance (Acute) Cervicalgia (Acute) Obesity (BMI 30-39.9) (Acute) Chronic back pain (Acute) Major depressive disorder, recurrent (Acute) History of lung cancer (Acute) Cigarette smoker (Chronic) Medical History COPD (chronic obstructive pulmonary disease) GERD (gastroesophageal reflux disease) Depression Chronic low back pain KATJA (obstructive sleep apnea) Primary cancer of right upper lobe of lung Surgical History H/O gastric bypass H/O cystoscopy S/P fine needle aspiration H/O colonoscopy H/O cervical spine surgery History of fundoplication H/O arthroscopy of shoulder H/O vaginal hysterectomy History of salpingectomy
[2024-10-06 13:58] LABS: Anion Gap 9.7 mmol/L (3-11); BUN 28 mg/dL (7-18); CO2 24.3 mmol/L (21.0-32.0); CREATININE 0.8 mg/dL (0.55-1.02); Calcium 9.5 mg/dL (8.5-10.1); Chloride 109 mmol/L (98-107); Estimated GFR 81.72 (mL/min/1.73m2); Glucose 197 mg/dL (74-106); Potassium 4.2 mmol/L (3.5-5.1); Sodium 143 mmol/L (136-145)
[2024-10-06] MEDS: Methylphenidate 10 MG TAB PO (14:25)
--- NOTE | 2024-10-06 14:52 | CHAPLAIN ---
Liset was sitting up in bed when I visited. She was pleasant. I explained my role and offered support. Liset has a history of COPD and lung cancer. Her friend Will is her paid caregiver. Her daughter is also involved.
[2024-10-06] MEDS: cefTRIAXone 1 GM/50 ML BAG IVPB (16:26)
[2024-10-06] MEDS: Methocarbamol 500 MG TAB 1000 MG PO (20:22)
[2024-10-06] MEDS: rOPINIRole 1 MG TAB 2 MG PO (20:23)
[2024-10-06] MEDS: Zolpidem 5 MG TAB PO (20:23)
[2024-10-07] VITALS (19 sets, daily range): BP systolic 139–159; BP diastolic 80–93; PULSE 62–105; RESP 2–28; TEMP 35.9–37.2; O2SAT 88–95
[2024-10-07] MEDS: Albuterol/Ipratropium 3 ML UPD VIAL UPD ×4 (05:10→23:18)
[2024-10-07 07:18] LABS: HCT 35.9 % (36.0-46.0); HGB 11.6 g/dL (11.2-15.7); MCH 30.9 pg (27.0-33.0); MCHC 32.3 % (32.0-36.0); MCV 96 fL (80-95); MPV 8.9 fL (8.0-11.0); Platelet Count 355 10^3/uL (130-400); RBC 3.76 10^6/uL (3.93-5.22); RDW 14.4 % (11.7-14.6); RDW-SD 50.6 fL; WBC 7.88 10^3/uL (4.4-10.8)
[2024-10-07 07:27] LABS: Anion Gap 4.5 mmol/L (3-11); BUN 26 mg/dL (7-18); CO2 29.5 mmol/L (21.0-32.0); CREATININE 0.9 mg/dL (0.55-1.02); Calcium 8.9 mg/dL (8.5-10.1); Chloride 112 mmol/L (98-107); Estimated GFR 70.95 (mL/min/1.73m2); Glucose 147 mg/dL (74-106); Potassium 3.5 mmol/L (3.5-5.1); Sodium 146 mmol/L (136-145)
[2024-10-07 08:08] LABS: Absolute Neutrophil Count 4.96 10^3/uL (1.2-6.7); Atypical Lymphocytes % 2 %
[2024-10-07 08:09] LABS: Absolute Monocyte Count 1.42 10^3/uL (0.1-0.8); Diff Comment Manual Differential; RBC Morphology Normal
[2024-10-07] MEDS: Enoxaparin 40 MG/0.4 ML SYR SC (08:24)
[2024-10-07] MEDS: Nicotine 21 MG/24 HR PATCH TD (08:24)
[2024-10-07] MEDS: DULoxetine 30 MG CAP 120 MG PO (08:25)
[2024-10-07] MEDS: Normal Saline Flush 10 ML SYR IVP ×2 (08:25→20:39)
[2024-10-07] MEDS: guaiFENesin 600 MG TABCR PO ×2 (08:25→20:35)
[2024-10-07] MEDS: Omeprazole 20 MG CAPCR 40 MG PO (08:25)
[2024-10-07] MEDS: Pregabalin 150 MG CAP 300 MG PO ×2 (08:25→20:35)
[2024-10-07] MEDS: Methylphenidate 10 MG TAB 40 MG PO (08:25)
[2024-10-07] MEDS: busPIRone 15 MG TAB PO ×3 (08:26→20:36)
[2024-10-07] MEDS: predniSONE 20 MG TAB 40 MG PO (08:26)
[2024-10-07] MEDS: Azithromycin 250 MG TAB 500 MG PO (08:26)
[2024-10-07] MEDS: Benzonatate 100 MG CAP PO ×3 (08:26→20:36)
[2024-10-07] MEDS: Montelukast 10 MG TAB PO (08:26)
--- NOTE | 2024-10-07 10:03 | W.PM.PROGNOT ---
Date of Service Date of service: 10/07/24 Time of Service: 10:03 Assessment and Plan Assessment and plan (1) Acute exacerbation of chronic obstructive pulmonary disease (COPD): Status: Acute Assessment and plan: Hx of right upper lobe lung cancer now in remission status post radiation therapy- resumed smoking / SO also smoke in the house Cold symptoms for 1 week. She has a productive cough of brown sputum, increased cough X-ray was negative for infiltrates, no fever , no leukocytosis 10/06/24: POCUS lungs: LLL Pneumonia Continue Zithromax 10/06/2024 Start ceftriaxone Continue oral prednisone Continue scheduled and PRN nebulizer Tx IS and Vibrapep Continue Mucinex Wean O2 as tolerated for sat> 88%- 92% Continue home dose methylphenidate for treatment of narcolepsy (2) Left lower lobe pneumonia: Status: Acute Assessment and plan: As per POCUS exam: LLL air bronchograms and B-lines continue ceftriaxone/azithromycin day 2/5 (3) Hypoxia: Status: Acute Assessment and plan: As above (4) Cigarette smoker: Status: Chronic Assessment and plan: Continue NRT (5) Primary cancer of right upper lobe of lung: Assessment and plan: In remission status post radiation. Outpatient follow-up (6) Steroid-induced hyperglycemia: Status: Acute Assessment and plan: Continue fingerstick before meals and at bedtime with SSI coverage (7) Depression: Assessment and plan: continue home medicine regimen Urine drug screen with increase risk of drug misuse, is positive for cocaine and opiates. (8) Chronic use of opiate for therapeutic purpose: Status: Chronic Assessment and plan: Patient is on chronic hydrocodone daily for back pain. Personal medicines brought to pharmacy on 10/05 -return to patient when discharge Continue home medicine regiment for chronic back pain (9) Cervical spondylosis: Status: Chronic Assessment and plan: As above Discussed with Dr. Pineda Subjective Subjective Patient reports: shortness of breath and afebrile Interval history since last seen: reports no improvement in symptoms, states I feel awful Exam Narrative Exam Narrative: Cachectic older appearing female than stated age chronically ill-appearing unkempt head atraumatic eyes nonicteric noninjected oral mucosas dry no oral exudate neck full range of motion no meningeal signs respirations even and unlabored at rest breath sounds diminished throughout no coarse breath sounds appreciated cardiovascular regular rate and rhythm abdomen flat extremities without edema neurologic awake alert oriented no focal deficits psychiatric flat affect Objective Last Vital Signs Temp 37.2 C 10/07/24 07:55 Pulse 82 10/07/24 07:55 Resp 22 10/07/24 07:55 BP 150/80 H 10/07/24 07:55 Pulse Ox 91 L 10/07/24 07:55 Laboratory Results - last 24 hr 10/06/24 10/07/24 13:42 06:24 WBC 7.88 RBC 3.76 L Hgb 11.6 Hct 35.9 L MCV 96 H MCH 30.9 MCHC 32.3 RDW 14.4 Plt Count 355 MPV 8.9 Immature Gran % See Differential Neutrophils % 63.0 Lymphocytes % 17.0 Atypical Lymphs % 2 Monocytes % 18.0 Eosinophils % 0.0 Basophils % 0.0 Nucleated RBC % 1.0 H Absolute Neutrophils 4.96 Absolute Lymphocytes 1.50 Absolute Monocytes 1.42 H Absolute Eosinophils 0.00 Absolute Basophils 0.00 RBC Morphology Normal Sodium 143 146 H Potassium 4.2 3.5 Chloride 109 H 112 H Carbon Dioxide 24.3 29.5 Anion Gap 9.7 4.5 BUN 28 H 26 H Creatinine 0.8 0.9 Est GFR (CKD-EPI 2020) 81.72 70.95 Glucose 197 H 147 H Calcium 9.5 8.9 Time Spent with Patient Time Spent with Patient: 35-49 minutes Time was spent: preparing to see the patient(eg.review tests), obtaining and/or reviewing separately otained hiistory, indepentently interpreting results and counseling the patient
[2024-10-07] MEDS: Budesonide/Formoterol 80/4.5 6.9 GM 60 PUFF INH IH ×2 (10:12→20:16)
--- NOTE | 2024-10-07 10:23 | NUR.NOTE ---
Nursing Note: Spoke to family d/t emergency yesterday with significant other, encouraged family members to let staff know if they feel the ptr needs attention as she has had some mental status changes while here. Family did not understand and got defensive. Also asked since significant other is sick to please wear a mask while in room.
[2024-10-07] MEDS: Insulin Aspart 300 UNITS/3 ML PEN SC ×3 (12:11→22:27)
[2024-10-07] MEDS: Methylphenidate 10 MG TAB PO (13:35)
[2024-10-07] MEDS: Albuterol 2.5 MG/3 ML INH SOLN VIAL UPD (14:22)
[2024-10-07] MEDS: cefTRIAXone 1 GM/50 ML BAG IVPB (16:13)
--- NOTE | 2024-10-07 16:30 | PT.INTREAT ---
PT Notes Visit Reasons: Exacerbation COPD with Hypoxemia Inpatient Physical Therapy Treatment Note Date: 10/08/24 Precautions: Activity as tolerated. Fall risk. Subjective: Agreeable to walking in the hallway using the walker, did not feel safe not using anything for the walk. Objective: General Observation: Resting in bed, IV in RUE. Mental Status: A&Ox3. Vital Signs: Discontinued oxygen supplementation as of today Bed Mobility/Transfers: supine-sit: independent sit-stand: independent with FWW stand-sit: independent with FWW Gait: 250 feet using FWW with minimal shortness of breath that resolved with rest. Oxygen saturation above 90% throughout the walk. Balance: Static Sitting: Normal Dynamic Sitting: Normal Static Standing: Fair Dynamic Standing: Faiir Assessment: Improving activity tolerance but still requires use of FWW for this session. Will work on weaning off FWW as she was independent without device per PLOF indoors. Plan of Care/Treatment Plan: 1-2x/day, 7 days/week x 1 week. Plan of care has been reviewed with the STEVEDORING SUPERVISOR providing the service under Physical Therapy direction. Initiate Physical Therapy intervention for strengthening, bed mobility, transfers, gait, stairs, balance training, use of assistive device. DISCHARGE RECOMMENDATIONS: Home with PT Ambulates in community with 4WW although has lost her walker that was previously issued to her many years ago; recommend discussing obtaining new walker through her CM in the community. TREATMENT CODE/TIME: 99920 x 18 minutes for 1 unit (16:30-16:48).
[2024-10-07] MEDS: Methocarbamol 500 MG TAB 1000 MG PO (20:35)
[2024-10-07] MEDS: rOPINIRole 1 MG TAB 2 MG PO (20:36)
[2024-10-07] MEDS: Zolpidem 5 MG TAB PO (20:36)
[2024-10-08 03:59] VITALS: BP 146/85; PULSE 95; RESP 17; TEMP 37.1; O2SAT 90
[2024-10-08 05:44] VITALS: PULSE 93; RESP 24; RESP 5; O2SAT 95
[2024-10-08] MEDS: Albuterol/Ipratropium 3 ML UPD VIAL UPD (05:44)
[2024-10-08 05:51] VITALS: PULSE 89; RESP 22; RESP 3; RESP 5; O2SAT 95
[2024-10-08 07:43] VITALS: BP 143/90; PULSE 86; RESP 20; TEMP 37.6; O2SAT 90
[2024-10-08 08:01] VITALS: O2SAT 91
[2024-10-08] MEDS: Nicotine 21 MG/24 HR PATCH TD (08:10)
[2024-10-08] MEDS: Montelukast 10 MG TAB PO (08:11)
[2024-10-08] MEDS: Methylphenidate 10 MG TAB 40 MG PO (08:11)
[2024-10-08] MEDS: Pregabalin 150 MG CAP 300 MG PO (08:11)
[2024-10-08] MEDS: predniSONE 20 MG TAB 40 MG PO (08:11)
[2024-10-08] MEDS: Insulin Aspart 300 UNITS/3 ML PEN SC ×2 (08:11→12:24)
[2024-10-08] MEDS: busPIRone 15 MG TAB PO ×2 (08:11→12:37)
[2024-10-08] MEDS: Benzonatate 100 MG CAP PO ×2 (08:12→12:37)
[2024-10-08] MEDS: DULoxetine 30 MG CAP 120 MG PO (08:12)
[2024-10-08] MEDS: Omeprazole 20 MG CAPCR 40 MG PO (08:12)
[2024-10-08] MEDS: Enoxaparin 40 MG/0.4 ML SYR SC (08:12)
[2024-10-08] MEDS: Azithromycin 250 MG TAB 500 MG PO (08:12)
[2024-10-08] MEDS: guaiFENesin 600 MG TABCR PO (08:12)
[2024-10-08] MEDS: Normal Saline Flush 10 ML SYR IVP ×2 (08:13→12:38)
[2024-10-08 11:12] VITALS: BP 129/101; PULSE 79; RESP 19; TEMP 36.6; O2SAT 95
--- NOTE | 2024-10-08 11:33 | DSE_ITS ---
Date of service: 10/08/24 Time of Service: 11:33 DS: Diagnosis Discharge Diagnosis (1) Acute exacerbation of chronic obstructive pulmonary disease (COPD): Status: Acute (2) Left lower lobe pneumonia: Status: Acute (3) Hypoxia: Status: Acute (4) Cigarette smoker: Status: Chronic (5) Primary cancer of right upper lobe of lung: (6) Steroid-induced hyperglycemia: Status: Acute (7) Depression: (8) Chronic use of opiate for therapeutic purpose: Status: Chronic (9) Cervical spondylosis: Status: Chronic Discharge Plan Disposition Patient Disposition: Home Condition: Improving Discharge Details Reason For Visit: Exacerbation COPD with Hypoxemia Admit Date/Time: 10/05/24 00:04 Admit Provider: John Valdez Attending Provider: John Valdez Primary Care Provider: Manjeet Lynne [facility] Course Hospital Course: This is a 63-year-old female with previous history right upper lobe lung cancer now in remission status post radiation therapy, tobacco abuse onging who presented to the ED with c/o upper respiratory illness for about one week. She was found hypoxic requiring 2 liters of nc oxygen to maintain sats in the 90's. she was started on ceftriaoxne and azithromycin to treat community acquired pneumonia and steroids for copd exacerbation. she slowly responded to treatment and was weaned off oxygen. she will be discharged home on antibiotics and steroids to complete a 7 day course. she was advised not to smoke. discharge discussed with DR Edwin Babb Meds and New Rx's Prescriptions: New azithromycin 250 mg Tablet 500 mg PO DAILY Qty: 6 0RF prednisone 20 mg Tablet 40 mg PO DAILY Qty: 6 0RF cefpodoxime 200 mg tablet 200 mg PO BID Qty: 14 0RF Rx Instructions: must administer with a meal/food Continued Incruse Ellipta 62.5 mcg/actuation blister with device 1 inh inhalation DAILY Qty: 30 12RF benzonatate 100 mg capsule 100 mg PO TID Qty: 90 6RF fluticasone propion-salmeterol [Advair HFA] 115-21 mcg/actuation HFA aerosol inhaler 2 puff inhalation BID Qty: 12 12RF Rx Instructions: administer with spacer methylphenidate HCl 10 mg tablet 10 mg PO QPM Patient Comments: hydrocodone-acetaminophen 7.5-325 mg tablet 1 tab PO Q6H PRN (Reason: pain) methocarbamol 500 mg tablet 1,000 mg PO HS Patient Comments: TAKE TWO TABLETS BY MOUTH DAILY AT 9PM AT BEDTIME zolpidem 5 mg tablet 5 mg PO QHS buspirone 15 mg tablet 15 mg PO .COMPLEX Rx Instructions: 15 mg orally QD-TID; ondansetron HCl 4 mg tablet 4 mg PO Q8H PRN (Reason: nausea) sumatriptan succinate 100 mg tablet 100 mg PO ONCE PRN (Reason: migraine headache) levalbuterol tartrate 45 mcg/actuation HFA aerosol inhaler 2 inh INHALATION Q4H PRN (Reason: shortness of breath or wheezing) ipratropium-albuterol 0.5 mg-3 mg(2.5 mg base)/3 mL solution for nebulization 3 ml inhalation Q4H PRN (DME) lancets Mis See Rx Instructions .Route Rx Instructions: Check blood glucose 2x daily Spiriva Respimat 2.5 mcg/actuation mist 2 puff inhalation BID budesonide-formoterol [Symbicort] 80-4.5 mcg/actuation HFA aerosol inhaler 2 puff inhalation BID (DME) OneTouch Ultra Test Strip See Rx Instructions .Route Rx Instructions: Test blood glucose 2x daily methylphenidate HCl 20 mg tablet 40 mg PO DAILY montelukast 10 mg tablet 10 mg PO DAILY pregabalin 300 mg capsule 300 mg PO BID Patient Comments: TAKE ONE CAPSULE BY MOUTH TWICE DAILY DAILY MAX 2 CAPSULES ropinirole 2 mg tablet 2 mg PO HS Patient Comments: TAKE ONE TABLET BY MOUTH DAILY AT 9PM AT BEDTIME lidocaine HCl [Lidocaine Viscous] 2 % solution 1 applic mucous membrane .q6 prn Patient Comments: MIX 5 MLS LIDOCAINE WITH 5 MLS MYLANTA OR MAALOX, SWISH AND SWALLOW FOR SWALLOWING PAIN EVERY 6 HOURS NEEDED duloxetine 60 mg capsule,delayed release(DR/EC) 120 mg PO DAILY (DME) OneTouch Ultra Test Strip MISCELLANEOUS Patient Comments: USE TO TEST TWO TIMES A DAY omeprazole 40 mg capsule,delayed release(DR/EC) 40 mg PO DAILY Patient Comments: TAKE ONE CAPSULE BY MOUTH EVERY DAY Spiriva Respimat 2.5 mcg/actuation mist 2 inh INHALATION DAILY Patient Comments: INHALE 2 PUFFS DIRECTED DAILY doxycycline hyclate 100 mg capsule 100 mg PO DAILY benzonatate 150 mg capsule 150 mg PO TID PRN (Reason: cough) Qty: 30 0RF Discharge Instructions Instructions: Community-acquired pneumonia in adults, COPD Exacerbation, Adult ED Additional Instructions: finish antibiotics and steroids as directed drink 6-8 glasses of water daily to stay well hydrated. resume usual medication as directed Stand Alone Forms: Nursing Discharge Form Referrals: Manjeet Lynne DO [Primary Care Provider] - (Please call the office on Wednesday to set up a hospital follow up within 7-10 days) Activity:: Activity as Tolerated Equipment/Supplies:: No Equipment Needed Diet:: As Tolerated Discharge Orders Discharge Orders: Discharge Order (Routine); Ordered 10/08/24 Ordered By: Tanvi Alejandro Discharge Data Discharge Date/Time-TO BE ENTERED AT DEPARTURE: 10/08/24 13:57 DS: Summary Time Spent with Patient providing and/or coordinating discharge services: Less than 30 minutes Status at Discharge Functional status at discharge: independent ambulation Overall status at discharge: patient is progressing back to baseline Mental Status: mental status grossly normal Speech and Movement: speech and movement normal Mood: congruent mood Affect: normal affect Quality:SDOH Health Related Social Needs: Health related social needs food insecurity (Z59.41), problems related to housing/economic circumstances (Z59.89) Health related social needs details will meet with SW Exam Narrative Exam Narrative: Cachectic older appearing female than stated age chronically ill-appearing unkempt head atraumatic eyes nonicteric noninjected oral mucosas dry no oral exudate neck full range of motion no meningeal signs respirations even and unlabored at rest breath sounds diminished throughout no coarse breath sounds appreciated cardiovascular regular rate and rhythm abdomen flat extremities without edema neurologic awake alert oriented no focal deficits psychiatric flat affect Psych Mental Status: mental status grossly normal Speech and Movement: speech and movement normal Mood: congruent mood Affect: normal affect DS: Data Vitals/I&O Vitals and I&O: Vital Signs Temperature 36.6 C 10/08/24 11:12 Temperature Source Temporal Artery Scan 10/08/24 11:12 Pulse 79 10/08/24 11:12 Pulse Rhythm Irregular 10/05/24 01:08 Pulse 100 H 10/05/24 00:50 Respiratory Rate 19 10/08/24 11:12 Respiratory Effort Short of Breath 10/05/24 01:08 Respiratory Depth Shallow 10/05/24 01:08 Respiratory Pattern Tachypnea 10/05/24 01:08 Blood Pressure 129/101 H 10/08/24 11:12 Blood Pressure Mean 86 10/05/24 00:46 Blood Pressure Position Sitting 10/04/24 23:55 Pulse Oximetry 95 10/08/24 11:12 Oxygen Delivery Method Room Air 10/08/24 11:12 Oxygen Flow Rate 0 10/08/24 11:12 Pain Level 0 10/08/24 11:12 Comment RN notified of BP. 10/08/24 11:12 Intake & Output 10/07/24 10/07/24 10/08/24 11:59 23:59 11:59 Intake Total 0 / 0 Output Total 800 / 1100 300 / 1100 500 / 500 Balance -800 / -1100 -300 / -1100 -500 / -500 Weight 63.2 kg Intake: IV 0 / 0 Output: Urine 800 / 1100 300 / 1100 500 / 500 Other: Urine Color Yellow Yellow Yellow Urine Appearance Clear Clear Clear Urine Odor Normal Normal Normal Comment pt voided x1 PFSH All Active Problems Left lower lobe pneumonia (Acute) Acute exacerbation of chronic obstructive pulmonary disease (COPD) (Acute) Edema of leg (Acute) Postcalcaneal bursitis (Acute) 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 08/18/24. I&D followed by antibiotics Pharyngeal dysphagia (Acute) Hypocalcemia (Acute) Splenic mass (Acute) Burn of lower limb (Acute) Posterior tibial tendon dysfunction (PTTD) of both lower extremities (Acute) Chronic use of opiate for therapeutic purpose (Chronic) Traumatic arthritis of right ankle (Acute) Posterior tibial tendonitis (Acute) Fibromyalgia (Acute) Steroid-induced hyperglycemia (Acute) Hypoxia (Acute) Other disorders of eyelid (Acute) Pyogenic granuloma of eyelid (Acute) Blurry vision, bilateral (Acute) Panlobular emphysema (Acute) Chronic fatigue (Acute) Hesitancy (Acute) Degeneration of lumbar or lumbosacral intervertebral disc (Acute) Complications due to internal orthopedic device, implant, and graft (Acute) Menopausal flushing (Acute) Varicose vein of leg (Acute) Patellar bursitis (Acute) Rosacea (Acute) IBS (irritable bowel syndrome) (Chronic) Lumbar radicular syndrome (Acute) Seasonal allergic rhinitis (Acute) Senile nuclear sclerosis (Acute) Cervical spondylosis (Chronic) Tear film insufficiency (Acute) Blepharitis of both eyes (Acute) Diplopia (Acute) Vitreous syneresis (Acute) Arthritis (Acute) Chronic pain syndrome (Chronic) Anxiety (Chronic) Fatty liver (Acute) Bronchitis (Acute) Degeneration of cervical intervertebral disc (Acute) Brachial neuritis (Acute) Neuralgia and neuritis (Acute) Lumbago (Acute) 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) Chronic knee pain (Acute) Hip pain (Acute) Narcolepsy (Acute) Insomnia (Acute) Restless legs syndrome (Acute) Asthma (Chronic) Migraine (Chronic) Impaired glucose tolerance (Acute) Cervicalgia (Acute) Obesity (BMI 30-39.9) (Acute) Chronic back pain (Acute) Major depressive disorder, recurrent (Acute) History of lung cancer (Acute) Cigarette smoker (Chronic) Medical History COPD (chronic obstructive pulmonary disease) GERD (gastroesophageal reflux disease) Depression Chronic low back pain KATJA (obstructive sleep apnea) Primary cancer of right upper lobe of lung Surgical History H/O gastric bypass H/O cystoscopy S/P fine needle aspiration H/O colonoscopy H/O cervical spine surgery History of fundoplication H/O arthroscopy of shoulder H/O vaginal hysterectomy History of salpingectomy Family History Sister No problems noted. Brother No problems noted. Mother No problems noted. Father No problems noted. Brother No problems noted. Social History Smoking/Tobacco Use Status: Current every day Tobacco Type: cigarettes Tobacco: How many years used: 48 Quit status: has quit before Second Hand Exposure: Yes Smoking risk assessment performed?: Yes Alcohol Intake: current Alcohol Intake frequency: holidays/special occasions only Drug use: Occasionally Substance use type: marijuana Adopted: No Caregiver/Support person: Yes Foster care: No Household members: caregiver Housing: apartment Number of Children: 2 number of grandchildren: 1 Communication Needs: None Education Level: high school Do you need help understanding health information?: Rarely current occupation: Retired Pets and animals: No Sexually active: Yes Do you think of yourself as: straight/heterosexual Current gender identity: female What is your relationship status?: living with partner How often do you talk on the phone with friends or family?: three or more times per week How often do you get together with friends or relatives?: three or more times per week How often do you attend zoroastrian or tenriism services?: 1-3 times per year Do you belong to any clubs or organized social groups?: no Panel score (0-1 are the most socially isolated patients): 2 What type of physical activity do you participate in: walking Duration: 15-30 minutes/day Frequency: 1-2 times per week Shreya/L[employer]-Day: [employer] Special shreya needs: No Seatbelt use: always Helmet use: Yes 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
[2024-10-08] MEDS: Methylphenidate 10 MG TAB PO (12:37)
[2024-10-08] MEDS: cefTRIAXone 1 GM/50 ML BAG IVPB (12:38)
--- NOTE | 2024-10-08 18:50 | PDOC.CMDIS ---
Date of service: 10/08/24 Time of Service: 18:50 LACE Index Scoring Tool Questions: Length of Stay (in days): 3 Was the patient admitted via the E.D.?: Yes Comorbidities: Chronic Pulmonary Disease and Liver or Renal Disease E.D. Visits: 4 Answers: Total Score: 15 Risk of Readmission: High Risk Care Management Discharge Plan Reason for Hospitalization: COPD Discharge Plan: Liset will be discharged home with new PT and RN . She will f/u with her PCP and pulmonolgy and continue per her plan of care. She will transport home in a private vehicle with Will. Patient/Family Education Needs: review of discharge instructions, limitations, discuss Ask Me Three Services Needed at Discharge: Home Health Care Services SDOH Health Related Social Needs: Health related social needs food insecurity (Z59.41), problems related to housing/economic circumstances (Z59.89) Health related social needs details will meet with JOSH
--- NOTE | 2024-10-09 15:00 | PDOC.HHF2F ---
Home Health Referral Home Health Orders Clinical synopsis of why skilled professionals are needed: frailty, copd, pneumonia, at risk elderly Medical diagnosis necessitation home health referral: pneumonia Registered Nurse: Check all that apply Instruct on new or changed medication(s)/assess compliance: Ordered Assess for exacerbation of medical condition, instruct patient/caregivers on signs and symptoms to report for early detection: Ordered Physical Therapist: Check all that apply Increase strength & endurance for safe mobility at home: Ordered To design/establish home maintenance program: Ordered Fall reduction therapy program for patient with history of frequent falls: Ordered Home safety evaluation and teaching/gait training including stair management (if applicable): Ordered Better Breathing Program: Ordered Occupational Therapist: Evaluate and treat for patient unable to perform ADL/IADL/self-care: Ordered Home Bound Status Describe why leaving home would require a considerable and taxing effort: Side effects from pain medication (sedation/drowsiness) and Requires frequent rest periods Encounter Date and Reason: I certify that a FTF encounter for this patient was performed on October 08, 2024 and that such encounter was related to the primary reason the patient requires home health services. The encounter was conducted in the following manner: By me as the certifying physician, PROFESSOR OF EDUCATION, PA or By an inpatient physician, PROFESSOR OF EDUCATION or PA during an inpatient stay who communicated findings to me, Certification And Authentication I certify that I composed the above information based on my clinical judgment relating to this patient's medical condition and, if applicable, clinical findings communicated to me by the NPP or inpatient physician who performed the FTF encounter. Name of Provider that will be monitoring home health services: Manjeet Lynne
== END 2024-10-08 13:57 | disposition home or self-care (01) | DRG 190 ==
LOC: ER 10-05 00:27 → MS 10-05 01:07
PROVIDERS: Family Medicine; Nurse Practitioner Acute Care; Admitting Provider Family Medicine; Emergency Provider Emergency Medicine; PCP Family Medicine; Visit Provider Family Medicine
DX: J44.0 Chronic obstructive pulmonary disease with (acute) lower respiratory infection (principal); J18.9 Pneumonia, unspecified organism; F33.9 Major depressive disorder, recurrent, unspecified; J44.1 Chronic obstructive pulmonary disease with (acute) exacerbation; R09.02 Hypoxemia; F17.210 Nicotine dependence, cigarettes, uncomplicated; R73.9 Hyperglycemia, unspecified; M47.812 Spondylosis without myelopathy or radiculopathy, cervical region; T38.0X5A Adverse effect of glucocorticoids and synthetic analogues, initial encounter; Z92.3 Personal history of irradiation; Z85.118 Personal history of other malignant neoplasm of bronchus and lung; Z79.891 Long term (current) use of opiate analgesic; F41.9 Anxiety disorder, unspecified; G47.411 Narcolepsy with cataplexy; R60.0 Localized edema; M79.7 Fibromyalgia; M51.379 Other intervertebral disc degeneration, lumbosacral region without mention of lumbar back pain or lower extremity pain; K58.9 Irritable bowel syndrome, unspecified; M54.16 Radiculopathy, lumbar region; E66.9 Obesity, unspecified; G47.33 Obstructive sleep apnea (adult) (pediatric); Z98.84 Bariatric surgery status
CPT/HCPCS: 00123; 36415; 76604; 80048; 80053; 80307; 82805; 85027; 87637; 93005; 93308; 94640; 94761; 96374; 97162; 97530; 99291; J1650; J3490; 71045; 81003; 81015; 83735; 84484; 85025; 93010; 94664; 94667; 94668; 94760; 99223; 99233; 99239; J0696; J1815; J2919; J3480; J7512; J7613; J7620

== ENCOUNTER → 2024-10-25 08:49 | Outpatient (BNVA) | payer MEDICARE, MEDICAID, SELFPAY | PROVIDERS: PCP Family Medicine; Referring Provider Family Medicine; Visit Provider Physician Assistant Surgical | DX: J44.9 Chronic obstructive pulmonary disease, unspecified (principal); F17.210 Nicotine dependence, cigarettes, uncomplicated; Z85.118 Personal history of other malignant neoplasm of bronchus and lung | CPT/HCPCS: 99214 ==

== ENCOUNTER → 2025-01-23 15:02 | Outpatient (BNVA) | payer MEDICARE, MEDICAID, SELFPAY | PROVIDERS: Referring Provider Family Medicine; Visit Provider Physician Assistant Surgical | DX: Z87.891 Personal history of nicotine dependence (principal); Z85.118 Personal history of other malignant neoplasm of bronchus and lung; J44.9 Chronic obstructive pulmonary disease, unspecified | CPT/HCPCS: 99214 ==

== ENCOUNTER 2025-03-30 10:32 | Inpatient (IN) | payer MEDICARE, MEDICAID, SELFPAY ==
[2025-03-30] VITALS (55 sets, daily range): BP systolic 125–169; BP diastolic 77–105; PULSE 73–89; RESP 17–34; TEMP 36.1–38.5; O2SAT 94–99
--- NOTE | 2025-03-30 10:15 | RT.EKG_ITS ---
APPROVED REPORT Exam: Resting ECG Reason for Exam: overdose Patient Location: E HR:80 bpm ECG Measurements Heart Rate 80 AXIS VT 140 P 81 QRSd 83 QRS 58 QT 490 T 62 QTc 567 Conclusion Sinus rhythm...normal P axis, V-rate 60- 99 Prolonged QT interval...QTc >500mS
--- NOTE | 2025-03-30 10:30 | RT.EKG_ITS ---
APPROVED REPORT Exam: Resting ECG Reason for Exam: overdose Patient Location: E HR:84 bpm ECG Measurements Heart Rate 84 AXIS IA 146 P 80 QRSd 81 QRS 76 QT 450 T 74 QTc 532 Conclusion Sinus rhythm...normal P axis, V-rate 60- 99 Prolonged QT interval...QTc >500mS
[2025-03-30] MEDS: Lactated Ringers 1,000 ML 1000 ML IV (10:45)
[2025-03-30 10:52] LABS: Abs Immature Grans 0.02 10^3/uL (0.0-0.06); HCT 36.8 % (36.0-46.0); HGB 12.3 g/dL (11.2-15.7); Immature Grans % 0.2 %; MCH 31.5 pg (27.0-33.0); MCHC 33.4 % (32.0-36.0); MCV 94 fL (80-95); MPV 8.9 fL (8.0-11.0); Platelet Count 286 10^3/uL (130-400); RBC 3.91 10^6/uL (3.93-5.22); RDW 14.5 % (11.7-14.6); RDW-SD 50.1 fL; WBC 8.14 10^3/uL (4.4-10.8)
--- NOTE | 2025-03-30 10:56 | W.ED.GENAD ---
Discharge Plan Disposition Patient Disposition: Admit to [facility] Condition: Critical Discharge Details Clinical Impression: Anticholinesterase overdose, Acute delirium, Suicidal overdose Primary Care Provider: Unknown,Unknown ED Provider: Luiz Michel Home Meds and New Rx's Prescriptions: No Action hydrocodone-acetaminophen 7.5-325 mg tablet 1 tab PO Q6H PRN (Reason: pain) methocarbamol 500 mg tablet 1,000 mg PO HS Patient Comments: TAKE TWO TABLETS BY MOUTH DAILY AT 9PM AT BEDTIME zolpidem 5 mg tablet 5 mg PO QHS buspirone 15 mg tablet 15 mg PO .COMPLEX Rx Instructions: 15 mg orally QD-TID; ondansetron HCl 4 mg tablet 4 mg PO Q8H PRN (Reason: nausea) sumatriptan succinate 100 mg tablet 100 mg PO ONCE PRN (Reason: migraine headache) (DME) lancets Misc See Rx Instructions .Route Rx Instructions: Check blood glucose 2x daily (DME) OneTouch Ultra Test Strip See Rx Instructions .Route Rx Instructions: Test blood glucose 2x daily methylphenidate HCl 10 mg tablet 10 mg PO DAILY Patient Comments: take at 1300 fluticasone propion-salmeterol [Advair HFA] 115-21 mcg/actuation HFA aerosol inhaler 2 puff inhalation BID Qty: 12 12RF benzonatate 200 mg capsule 200 mg PO TID PRN (Reason: cough) Qty: 90 12RF methylphenidate HCl 20 mg tablet 40 mg PO DAILY montelukast 10 mg tablet 10 mg PO DAILY pregabalin 300 mg capsule 300 mg PO BID Patient Comments: TAKE ONE CAPSULE BY MOUTH TWICE DAILY DAILY MAX 2 CAPSULES ropinirole 2 mg tablet 2 mg PO HS Patient Comments: TAKE ONE TABLET BY MOUTH DAILY AT 9PM AT BEDTIME lidocaine HCl [Lidocaine Viscous] 2 % solution 1 applic mucous membrane .q6 prn Patient Comments: MIX 5 MLS LIDOCAINE WITH 5 MLS MYLANTA OR MAALOX, SWISH AND SWALLOW FOR SWALLOWING PAIN EVERY 6 HOURS NEEDED duloxetine 60 mg capsule,delayed release(DR/EC) 120 mg PO DAILY (DME) OneTouch Ultra Test Strip MISCELLANEOUS Patient Comments: USE TO TEST TWO TIMES A DAY omeprazole 40 mg capsule,delayed release(DR/EC) 40 mg PO DAILY Patient Comments: TAKE ONE CAPSULE BY MOUTH EVERY DAY azithromycin 250 mg tablet 250 mg PO DAILY Rx Instructions: 250 mg orally; HPI General Mode of arrival: EMS. Date/Time Provider Initiated Documentation: 03/30/25 10:34. Limitations to Documentation: altered mental status. Information obtained by: EMS. HPI Narrative: HISTORY OF PRESENT ILLNESS 64-year-old female with multiple medical problems presenting with altered mental status. Family received a text from the patient stating not to worry about her anymore. Found altered with an empty bottle of Benadryl. EMS noted GCS 10 at the scene. Last known well at 0830 hours. Blood sugar 93. Unresponsive, minimal eye tracking, no response to pain stimuli. Reported ingestion of up to 100 tablets of Benadryl 25 mg. Potentially 112 tablets of hydrocodone 7.5mg with acetaminophen 325mg, filled on 12/26/2024. Related Data Home Medications ?Medication ?Instructions ?Recorded ?Confirmed blood sugar diagnostic (OneTouch 02/17/24 01/24/25 Ultra Test strips) duloxetine 60 mg capsule,delayed 120 mg PO DAILY 02/17/24 01/24/25 release lidocaine HCl 2 % mucosal solution 1 applic mucous membrane .q6 prn 02/17/24 01/24/25 (Lidocaine Viscous) methylphenidate HCl 20 mg tablet 40 mg PO DAILY 02/17/24 03/30/25 montelukast 10 mg tablet 10 mg PO DAILY Allergies 02/17/24 01/24/25 omeprazole 40 mg capsule,delayed 40 mg PO DAILY 02/17/24 01/24/25 release pregabalin 300 mg capsule 300 mg PO BID 02/17/24 01/24/25 ropinirole 2 mg tablet 2 mg PO HS 02/17/24 01/24/25 blood sugar diagnostic (OneTouch 05/03/24 01/24/25 Ultra Test strips) buspirone 15 mg tablet 15 mg PO .COMPLEX 05/03/24 01/24/25 hydrocodone 7.5 mg-acetaminophen 1 tab PO Q6H PRN pain 05/03/24 03/30/25 325 mg tablet lancets 05/03/24 01/24/25 methocarbamol 500 mg tablet 1,000 mg PO HS 05/03/24 01/24/25 ondansetron HCl 4 mg tablet 4 mg PO Q8H PRN nausea 05/03/24 01/24/25 sumatriptan succinate 100 mg tablet 100 mg PO ONCE PRN migraine 05/03/24 03/30/25 headache zolpidem 5 mg tablet 5 mg PO QHS 05/03/24 03/30/25 fluticasone propionate 115 2 puff inhalation BID #12 grams 10/25/24 03/30/25 mcg-salmeterol 21 mcg/actuation HFA inhaler (Advair HFA) methylphenidate HCl 10 mg tablet 10 mg PO DAILY 10/25/24 03/30/25 benzonatate 200 mg capsule 200 mg PO TID PRN cough #90 caps 01/23/25 03/30/25 azithromycin 250 mg tablet 250 mg PO DAILY COPD 03/30/25 03/30/25 Previous Rx's ?Medication ?Instructions ?Recorded fluticasone propionate 115 2 puff inhalation BID #12 grams 10/25/24 mcg-salmeterol 21 mcg/actuation HFA inhaler (Advair HFA) benzonatate 200 mg capsule 200 mg PO TID PRN cough #90 caps 01/23/25 Allergies Allergy/AdvReac Type Severity Reaction Status Date / Time ketorolac (From Toradol) Allergy Severe Anaphylaxis Verified 01/23/25 15:09 ibuprofen (From Motrin) Allergy Intermediate Itching Verified 01/23/25 15:09 General Stated Complaint: OD/Poison DMITRI: 2 Review of Systems Unobtainable due to mental status Exam Const Orientation: alert Limitations: altered mental status HENMN Head: atraumatic Mouth: mucous membranes dry Eyes Conjunctivae: normal conjunctivae Sclera: normal sclerae Neck Neck: trachea midline and supple Resp Effort & Inspection: tachypneic Auscultation: clear to auscultation bilaterally, no rales, no rhonchi and no wheezes Cardio Rate: regular rate and not tachycardic Rhythm: regular rhythm GI Palpation: soft, not firm, no guarding, no masses, not rigid and nontender Skin General skin exam: no rashes or lesions noted Neuro General: patient awake and not oriented x3 Cognition: abnormal cognition Other: GCS 11 (E4 V1 M6) -patient following some commands including wiggling her foot. Extrem General: no edema Course Vital Signs Vital signs: Vital Signs Temperature 36.3 C L 03/30/25 10:33 Pulse 81 03/30/25 10:33 Respiratory Rate 33 H 03/30/25 10:33 Blood Pressure 150/93 H 03/30/25 10:33 Pulse Oximetry 98 03/30/25 10:33 Temperature 36.3 C L 03/30/25 10:33 Temperature Source Tympanic 03/30/25 10:33 Pulse 81 03/30/25 10:33 Respiratory Rate 33 H 03/30/25 10:33 Blood Pressure 150/93 H 03/30/25 10:33 Blood Pressure Position Sitting 03/30/25 10:33 Pulse Oximetry 98 03/30/25 10:33 Oxygen Delivery Method Room Air 03/30/25 10:33 Oxygen Flow Rate 0 03/30/25 10:33 Medical Decision Making ASSESSMENT AND PLAN Initial Assessment: 64-year-old female with altered mental status, found with an empty bottle of Benadryl and potential empty bottle of hydrocodone with acetaminophen. GCS 10 at the scene. Concern for moderate to severe anticholinergic toxicity and potential acetaminophen overdose. Differential Diagnosis: - Anticholinergic toxicity: Empty bottle of Benadryl found. Monitoring and IV fluid bolus. - Acetaminophen overdose: Potential empty bottle of hydrocodone with acetaminophen. Check acetaminophen levels and LFTs. Contact poison control. ED Course: - EKG reviewed and interpreted by me: Sinus rhythm 80 bpm, prolonged QT interval 567 ms. - IV fluid bolus administered. - Poison control contacted and recommend: - Monitor for seizures, hypothermia and acidosis and treat with benzos as needed. If no response to benzo plan for intubation with propofol and phenobarb. The rep recommend aggressive cooling should hypothermia develop. Recommend sodium bicarb for widening QRS. - Salicylate slightly elevated. Plan to trend with repeat level. - CT of the head was obtained to assess for intracranial hemorrhage. CT head was interpreted by Dr. Barros, radiologist, negative for acute process. - I spoke with the hospitalist on-call, Dr. Giang, he will admit the patient to the ICU. - Repeat EKG was reviewed and interpreted by me: Please see report, QRS duration remains normal at 81. Final Assessment: Altered mental status likely due to ingestion of Benadryl and potential hydrocodone with acetaminophen. EKG showed prolonged QT interval. IV fluid bolus given. Monitoring and further diagnostic tests planned. Clinical Impression: - Anticholinergic toxicity - Potential acetaminophen overdose Disposition: - Admission to ICU for monitoring and continued treatment. - Patient will require mental health treatment including treatment for suicidality when medically cleared Follow-Up: Poison control recommendations. This document was written with the assistance of ISABEL Lennon. The patient consented to its use. Lab Data Lab results reviewed: Yes I reviewed the patient's lab results. Labs: Laboratory Tests Range/Units 03/30/25 03/30/25 03/30/25 10:45 10:48 11:23 WBC (4.4-10.8) 10^3/uL 8.14 RBC (3.93-5.22) 10^6/uL 3.91 L Hgb (11.2-15.7) g/dL 12.3 Hct (36.0-46.0) % 36.8 MCV (80-95) fL 94 MCH (27.0-33.0) pg 31.5 MCHC (32.0-36.0) % 33.4 RDW (11.7-14.6) % 14.5 Plt Count (130-400) 10^3/uL 286 MPV (8.0-11.0) fL 8.9 Immature Gran % % 0.2 Neutrophils % % 69.5 Lymphocytes % % 13.9 Monocytes % % 8.2 Eosinophils % % 7.5 Basophils % % 0.7 Nucleated RBC % (0.0-0.3) % 0.0 Absolute Neutrophils (1.2-6.7) 10^3/uL 5.65 Absolute Lymphocytes (1.2-3.4) 10^3/uL 1.13 L Absolute Monocytes (0.1-0.8) 10^3/uL 0.67 Absolute Eosinophils (0.0-0.7) 10^3/uL 0.61 Absolute Basophils (0.0-0.2) 10^3/uL 0.06 Sodium (136-145) mmol/L 146 H Potassium (3.5-5.1) mmol/L 3.1 L Chloride (98-107) mmol/L 108 H Carbon Dioxide (21.0-32.0) mmol/L 27.0 Anion Gap (3-11) mmol/L 11.0 BUN (7-18) mg/dL 10 Creatinine (0.55-1.02) mg/dL 0.6 Est GFR (CKD-EPI 2020) (mL/min/1.73m2) 98.93 Glucose (74-106) mg/dL 83 Calcium (8.5-10.1) mg/dL 8.3 L Magnesium (1.8-2.4) mg/dL 2.3 Total Bilirubin (0.2-1.0) mg/dL 0.2 AST (15-37) U/L 16 ALT (14-59) U/L 19 Alkaline Phosphatase (46-116) U/L 97 Creatine Kinase (26-192) U/L 70 Total Protein (6.4-8.2) g/dL 6.9 Albumin (3.4-5.0) g/dL 3.7 Salicylates (<2.8) mg/dL 7.9 Urine Opiates Screen (Negative) Negative Urine Methadone Screen (Negative) Negative Acetaminophen (10-30) ug/mL < 2 Ur Barbiturates Screen (Negative) Negative Ur Tricyclics Screen (Negative) Negative Ur Amphetamines Screen (Negative) Negative U Benzodiazepines Scrn (Negative) Negative Urine Cocaine Screen (Negative) Positive A Ur THC Screen (Negative) Negative Ethyl Alcohol (<10) mg/dL < 3.0 Quality:SDOH Health Related Social Needs: Health related social needs food insecurity house/econ circumstance Health related social needs details will meet with SW Critical Care Time Critical Care Time Critical Care Time: Yes Total Critical Care Time: 60 Attestation: Due to a high probability of clinically significant, life threatening deterioration, the patient required my highest level of preparedness to intervene emergently and I personally spent this critical care time directly and personally managing the patient. This critical care time included obtaining a history; examining the patient; pulse oximetry; ordering and review of studies; arranging urgent treatment with development of a management plan; evaluation of patient's response to treatment; frequent reassessment; and, discussions with other providers. This critical care time was performed to assess and manage the high probability of imminent, life-threatening deterioration that could result in multi-organ failure. It was exclusive of separately billable procedures and treating other patients and teaching time. Please see MDM section and the rest of the note for further information on patient assessment and treatment. PFSH All Active Problems Suicidal overdose (Acute) Acute delirium (Acute) Anticholinesterase overdose (Acute) Left lower lobe pneumonia (Acute) Acute exacerbation of chronic obstructive pulmonary disease (COPD) (Acute) Edema of leg (Acute) Postcalcaneal bursitis (Acute) 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 08/18/24. I&D followed by antibiotics Pharyngeal dysphagia (Acute) Hypocalcemia (Acute) Splenic mass (Acute) Burn of lower limb (Acute) Posterior tibial tendon dysfunction (PTTD) of both lower extremities (Acute) Chronic use of opiate for therapeutic purpose (Chronic) Traumatic arthritis of right ankle (Acute) Posterior tibial tendonitis (Acute) Fibromyalgia (Acute) Steroid-induced hyperglycemia (Acute) Hypoxia (Acute) Other disorders of eyelid (Acute) Pyogenic granuloma of eyelid (Acute) Blurry vision, bilateral (Acute) Panlobular emphysema (Acute) Chronic fatigue (Acute) Hesitancy (Acute) Degeneration of lumbar or lumbosacral intervertebral disc (Acute) Complications due to internal orthopedic device, implant, and graft (Acute) Menopausal flushing (Acute) Varicose vein of leg (Acute) Patellar bursitis (Acute) Rosacea (Acute) IBS (irritable bowel syndrome) (Chronic) Lumbar radicular syndrome (Acute) Seasonal allergic rhinitis (Acute) Senile nuclear sclerosis (Acute) Cervical spondylosis (Chronic) Tear film insufficiency (Acute) Blepharitis of both eyes (Acute) Diplopia (Acute) Vitreous syneresis (Acute) Arthritis (Acute) Chronic pain syndrome (Chronic) Anxiety (Chronic) Fatty liver (Acute) Bronchitis (Acute) Degeneration of cervical intervertebral disc (Acute) Brachial neuritis (Acute) Neuralgia and neuritis (Acute) Lumbago (Acute) 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) Chronic knee pain (Acute) Hip pain (Acute) Narcolepsy (Acute) Insomnia (Acute) Restless legs syndrome (Acute) Asthma (Chronic) Migraine (Chronic) Impaired glucose tolerance (Acute) Cervicalgia (Acute) Obesity (BMI 30-39.9) (Acute) Chronic back pain (Acute) Major depressive disorder, recurrent (Acute) History of lung cancer (Acute) Cigarette smoker (Chronic) Medical History COPD (chronic obstructive pulmonary disease) GERD (gastroesophageal reflux disease) Depression Chronic low back pain KATJA (obstructive sleep apnea) Primary cancer of right upper lobe of lung Surgical History H/O gastric bypass H/O cystoscopy S/P fine needle aspiration H/O colonoscopy H/O cervical spine surgery History of fundoplication H/O arthroscopy of shoulder H/O vaginal hysterectomy History of salpingectomy Family History Sister No problems noted. Brother No problems noted. Mother No problems noted. Father No problems noted. Brother No problems noted. Social History Smoking/Tobacco Use Status: Current every day Tobacco Type: cigarettes Tobacco: How many years used: 48 Quit status: has quit before Second Hand Exposure: Yes Smoking risk assessment performed?: Yes Alcohol Intake: current Alcohol Intake frequency: holidays/special occasions only Drug use: Occasionally Substance use type: marijuana Adopted: No Caregiver/Support person: Yes Foster care: No Household members: caregiver Housing: apartment Number of Children: 2 number of grandchildren: 1 Communication Needs: None Education Level: high school Do you need help understanding health information?: Rarely current occupation: Retired Pets and animals: No Sexually active: Yes Do you think of yourself as: straight/heterosexual Current gender identity: female What is your relationship status?: living with partner How often do you talk on the phone with friends or family?: three or more times per week How often do you get together with friends or relatives?: three or more times per week How often do you attend temple or orthodoxy services?: 1-3 times per year Do you belong to any clubs or organized social groups?: no Panel score (0-1 are the most socially isolated patients): 2 What type of physical activity do you participate in: walking Duration: 15-30 minutes/day Frequency: 1-2 times per week Shreya/Muslim: Pentecostalism Special shreya needs: No Seatbelt use: always Helmet use: Yes Drive intox or ride w/intox certified driver examiner: No Do you feel safe at home: Yes Do you feel safe in your relationship?: Yes
[2025-03-30 11:17] LABS: Salicylate 7.9 mg/dL (<2.8)
[2025-03-30 11:19] LABS: ALT 19 U/L (14-59); AST 16 U/L (15-37); Acetaminophen < 2 ug/mL (10-30); Albumin 3.7 g/dL (3.4-5.0); Alkaline Phosphatase 97 U/L (46-116); Anion Gap 11.0 mmol/L (3-11); BUN 10 mg/dL (7-18); Bilirubin, Total 0.2 mg/dL (0.2-1.0); CO2 27.0 mmol/L (21.0-32.0); Calcium 8.3 mg/dL (8.5-10.1); Chloride 108 mmol/L (98-107); Estimated GFR 98.93 (mL/min/1.73m2); Glucose 83 mg/dL (74-106); Magnesium 2.3 mg/dL (1.8-2.4); Potassium 3.1 mmol/L (3.5-5.1); Sodium 146 mmol/L (136-145); Total Protein 6.9 g/dL (6.4-8.2)
[2025-03-30 11:57] LABS: Cannabinoids THC Negative (Negative); METHADONE URINE SCREEN Negative (Negative)
[2025-03-30 12:00] LABS: Creatine Kinase 70 U/L (26-192)
--- NOTE | 2025-03-30 12:30 | DI.CT_ITS ---
Exam(s) CT HEAD WO EXAM: CT HEAD WO CLINICAL HISTORY: altered. TECHNIQUE: Imaging Protocol: Axial computed tomography images with coronal and sagittal reformatted images were created and reviewed COMPARISON: No exams were available for comparison FINDINGS: There are no skull fractures. There is no fluid in the visualized paranasal sinuses. There is no evidence of intracranial hemorrhage, mass effect, or shift of midline structures. There are no extra-axial fluid collections. The ventricles are not enlarged or shifted and there is no blood within the ventricular system nor within the basal cisterns. There is symmetrical bifrontal atrophy. No obvious temporal atrophy Small benign midline lipoma is noted. IMPRESSION: No acute intracranial findings on this noninfused CT scan of the brain. Bifrontal atrophy noted. Report called by myself to ER physician 03/30/2025 at 1:46 p.m. RADIATION DOSE DELIVERED: 1,795.34mGy.cm Total DLP DATA REPOSITORY: All CT scans at this facility are submitted to the National Radiology Data Registry (NRDR) Dose Index Registry (DIR) with the [employer] (ACR). RADIATION OPTIMIZATION: All CT scans at this facility use at least one of these dose optimization techniques: automated exposure control; mA and/or kV adjustment per patient size (includes targeted exams where dose is matched to clinical indication); or iterative reconstruction.
[2025-03-30] MEDS: POTASSIUM CHLORIDE 20 MEQ/100 ML BAG 50 MEQ IV_INF (13:25)
[2025-03-30 13:45] LABS: Salicylate 6.1 mg/dL (<2.8)
[2025-03-30] MEDS: Lactated Ringers 250 ML IV (13:47)
[2025-03-30 13:51] LABS: Acetaminophen < 2 ug/mL (10-30)
[2025-03-30] MEDS: Enoxaparin 40 MG/0.4 ML SYR SC (14:56)
[2025-03-30] MEDS: DEXTROSE 5%-0.45% SALINE 1,000 ML 100 ML IV (16:00)
--- NOTE | 2025-03-30 16:48 | W.PM.HP.N ---
Date of service: 03/30/25 Time of Service: 16:48 Assessment and Plan Assessment and plan (1) Suicidal overdose: Status: Acute Assessment and plan: supportive measures. Benzo prn ordered in case of seizure (2) Cigarette smoker: Status: Chronic Assessment and plan: add nicoderm (3) History of lung cancer: Status: Acute Assessment and plan: consider cxr in am if pt has respiratory compromise pt on lovenox for dvtp History of Present Illness History of Present Illness Chief Complaint: overdose Narrative: This is a 64-year-old female who apparently called her family this morning and said that you have nothing else to worry about, no signs and then ingested a significant amount of Benadryl. EMS was activated and brought her into the hospital ED for further evaluation and treatment per my discussion with the ED physician Poison control did not recommend any specific interventions at this time but did want to put in the hospital for monitoring. When I was able to interview the patient she did not respond to verbal stimuli. She would open her eyes to command though. In reviewing the notes from the ED, GCS upon first evaluation was 10 she was last known well at 0830 hrs. this morning. In reviewing her records and diagnostic data CMP is benign she does have a mild decrease in her pCO2 at 37 bicarb is 19 which is low total CO2 is 18 which is low base excess -7. Her sodium is elevated 146 potassium 3.1 chloride 108 BUN and creatinine 10 and 0.6. Urinalysis does show proteinuria urine drug screen was negative for opiates methadone barbiturates tricyclic's amphetamines benzos but positive for okay cocaine. She was also negative for THC and alcohol. Review of Systems All systems reviewed & are unremarkable except as noted in HPI and below PFSH All Active Problems Suicidal overdose (Acute) Acute delirium (Acute) Anticholinesterase overdose (Acute) Left lower lobe pneumonia (Acute) Acute exacerbation of chronic obstructive pulmonary disease (COPD) (Acute) Edema of leg (Acute) Postcalcaneal bursitis (Acute) 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 08/18/24. I&D followed by antibiotics Pharyngeal dysphagia (Acute) Hypocalcemia (Acute) Splenic mass (Acute) Burn of lower limb (Acute) Posterior tibial tendon dysfunction (PTTD) of both lower extremities (Acute) Chronic use of opiate for therapeutic purpose (Chronic) Traumatic arthritis of right ankle (Acute) Posterior tibial tendonitis (Acute) Fibromyalgia (Acute) Steroid-induced hyperglycemia (Acute) Hypoxia (Acute) Other disorders of eyelid (Acute) Pyogenic granuloma of eyelid (Acute) Blurry vision, bilateral (Acute) Panlobular emphysema (Acute) Chronic fatigue (Acute) Hesitancy (Acute) Degeneration of lumbar or lumbosacral intervertebral disc (Acute) Complications due to internal orthopedic device, implant, and graft (Acute) Menopausal flushing (Acute) Varicose vein of leg (Acute) Patellar bursitis (Acute) Rosacea (Acute) IBS (irritable bowel syndrome) (Chronic) Lumbar radicular syndrome (Acute) Seasonal allergic rhinitis (Acute) Senile nuclear sclerosis (Acute) Cervical spondylosis (Chronic) Tear film insufficiency (Acute) Blepharitis of both eyes (Acute) Diplopia (Acute) Vitreous syneresis (Acute) Arthritis (Acute) Chronic pain syndrome (Chronic) Anxiety (Chronic) Fatty liver (Acute) Bronchitis (Acute) Degeneration of cervical intervertebral disc (Acute) Brachial neuritis (Acute) Neuralgia and neuritis (Acute) Lumbago (Acute) 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) Chronic knee pain (Acute) Hip pain (Acute) Narcolepsy (Acute) Insomnia (Acute) Restless legs syndrome (Acute) Asthma (Chronic) Migraine (Chronic) Impaired glucose tolerance (Acute) Cervicalgia (Acute) Obesity (BMI 30-39.9) (Acute) Chronic back pain (Acute) Major depressive disorder, recurrent (Acute) History of lung cancer (Acute) Cigarette smoker (Chronic) Medical History COPD (chronic obstructive pulmonary disease) GERD (gastroesophageal reflux disease) Depression Chronic low back pain KATJA (obstructive sleep apnea) Primary cancer of right upper lobe of lung Surgical History H/O gastric bypass H/O cystoscopy S/P fine needle aspiration H/O colonoscopy H/O cervical spine surgery History of fundoplication H/O arthroscopy of shoulder H/O vaginal hysterectomy History of salpingectomy Family History Sister No problems noted. Brother No problems noted. Mother No problems noted. Father No problems noted. Brother No problems noted. Social History Smoking/Tobacco Use Status: Current every day Tobacco Type: cigarettes Tobacco: How many years used: 48 Quit status: has quit before Second Hand Exposure: Yes Smoking risk assessment performed?: Yes Alcohol Intake: current Alcohol Intake frequency: holidays/special occasions only Drug use: Occasionally Substance use type: marijuana Adopted: No Caregiver/Support person: Yes Foster care: No Household members: caregiver Housing: apartment Number of Children: 2 number of grandchildren: 1 Communication Needs: None Education Level: high school Do you need help understanding health information?: Rarely current occupation: Retired Pets and animals: No Sexually active: Yes Do you think of yourself as: straight/heterosexual Current gender identity: female What is your relationship status?: living with partner How often do you talk on the phone with friends or family?: three or more times per week How often do you get together with friends or relatives?: three or more times per week How often do you attend religious or pentecostal services?: 1-3 times per year Do you belong to any clubs or organized social groups?: no Panel score (0-1 are the most socially isolated patients): 2 What type of physical activity do you participate in: walking Duration: 15-30 minutes/day Frequency: 1-2 times per week Shreya/Faith: Protestant Special shreya needs: No Seatbelt use: always Helmet use: Yes Drive intox or ride w/intox lokie driver: No Do you feel safe at home: Yes Do you feel safe in your relationship?: Yes Meds Allergies and Home Medications Allergies Allergy/AdvReac Type Severity Reaction Status Date / Time ketorolac (From Toradol) Allergy Severe Anaphylaxis Verified 01/23/25 15:09 ibuprofen (From Motrin) Allergy Intermediate Itching Verified 01/23/25 15:09 Home Medications ?Medication ?Instructions ?Recorded ?Confirmed ?Type blood sugar diagnostic (OneTouch 02/17/24 01/24/25 History Ultra Test strips) duloxetine 60 mg capsule,delayed 120 mg PO DAILY 02/17/24 01/24/25 History release lidocaine HCl 2 % mucosal solution 1 applic mucous membrane .q6 prn 02/17/24 01/24/25 History (Lidocaine Viscous) methylphenidate HCl 20 mg tablet 40 mg PO DAILY 02/17/24 03/30/25 History montelukast 10 mg tablet 10 mg PO DAILY Allergies 02/17/24 01/24/25 History omeprazole 40 mg capsule,delayed 40 mg PO DAILY 02/17/24 01/24/25 History release pregabalin 300 mg capsule 300 mg PO BID 02/17/24 01/24/25 History ropinirole 2 mg tablet 2 mg PO HS 02/17/24 01/24/25 History blood sugar diagnostic (OneTouch 05/03/24 01/24/25 History Ultra Test strips) buspirone 15 mg tablet 15 mg PO .COMPLEX 05/03/24 01/24/25 History hydrocodone 7.5 mg-acetaminophen 1 tab PO Q6H PRN pain 05/03/24 03/30/25 History 325 mg tablet lancets 05/03/24 01/24/25 History methocarbamol 500 mg tablet 1,000 mg PO HS 05/03/24 01/24/25 History ondansetron HCl 4 mg tablet 4 mg PO Q8H PRN nausea 05/03/24 01/24/25 History sumatriptan succinate 100 mg tablet 100 mg PO ONCE PRN migraine 05/03/24 03/30/25 History headache zolpidem 5 mg tablet 5 mg PO QHS 05/03/24 03/30/25 History fluticasone propionate 115 2 puff inhalation BID #12 grams 10/25/24 03/30/25 Rx mcg-salmeterol 21 mcg/actuation HFA inhaler (Advair HFA) methylphenidate HCl 10 mg tablet 10 mg PO DAILY 10/25/24 03/30/25 History benzonatate 200 mg capsule 200 mg PO TID PRN cough #90 caps 01/23/25 03/30/25 Rx azithromycin 250 mg tablet 250 mg PO DAILY COPD 03/30/25 03/30/25 History Exam Narrative Exam Narrative: HEENT-NCAT EOMI PERRLA NECK-NO LAD NO JVD CV-RRR NO MRG PULM-CTAB NO AMU ABD-[id number] EXT-NO CCE NEURO-CANNOT BE COMPLETELY ASSESSED 2/2 MENTAL STATUS CHANGED PT DOES RESPOND TO VERBAL STIMULI AND WILL TRACK TO VOICE Results Labs 03/30/25 10:45 03/30/25 10:45 Labs: Laboratory Results - last 24 hr 03/30/25 03/30/25 03/30/25 10:45 10:48 11:23 WBC 8.14 RBC 3.91 L Hgb 12.3 Hct 36.8 MCV 94 MCH 31.5 MCHC 33.4 RDW 14.5 Plt Count 286 MPV 8.9 Immature Gran % 0.2 Neutrophils % 69.5 Lymphocytes % 13.9 Monocytes % 8.2 Eosinophils % 7.5 Basophils % 0.7 Nucleated RBC % 0.0 Absolute Neutrophils 5.65 Absolute Lymphocytes 1.13 L Absolute Monocytes 0.67 Absolute Eosinophils 0.61 Absolute Basophils 0.06 Sodium 146 H Potassium 3.1 L Chloride 108 H Carbon Dioxide 27.0 Anion Gap 11.0 BUN 10 Creatinine 0.6 Est GFR (CKD-EPI 2020) 98.93 Glucose 83 Calcium 8.3 L Magnesium 2.3 Total Bilirubin 0.2 AST 16 ALT 19 Alkaline Phosphatase 97 Creatine Kinase 70 Total Protein 6.9 Albumin 3.7 Salicylates 7.9 Urine Opiates Screen Negative Urine Methadone Screen Negative Acetaminophen < 2 Ur Barbiturates Screen Negative Ur Tricyclics Screen Negative Ur Amphetamines Screen Negative U Benzodiazepines Scrn Negative Urine Cocaine Screen Positive A Ur THC Screen Negative Ethyl Alcohol < 3.0 03/30/25 13:10 WBC RBC Hgb Hct MCV MCH MCHC RDW Plt Count MPV Immature Gran % Neutrophils % Lymphocytes % Monocytes % Eosinophils % Basophils % Nucleated RBC % Absolute Neutrophils Absolute Lymphocytes Absolute Monocytes Absolute Eosinophils Absolute Basophils Sodium Potassium Chloride Carbon Dioxide Anion Gap BUN Creatinine Est GFR (CKD-EPI 2020) Glucose Calcium Magnesium Total Bilirubin AST ALT Alkaline Phosphatase Creatine Kinase Total Protein Albumin Salicylates 6.1 Urine Opiates Screen Urine Methadone Screen Acetaminophen < 2 Ur Barbiturates Screen Ur Tricyclics Screen Ur Amphetamines Screen U Benzodiazepines Scrn Urine Cocaine Screen Ur THC Screen Ethyl Alcohol Last Vital Signs Temp 37 C 03/30/25 15:30 Pulse 78 03/30/25 15:30 Resp 23 03/30/25 15:30 BP 144/104 H 03/30/25 14:16 Pulse Ox 97 03/30/25 15:30 Time Spent Time spent with Patient: <40 minutes Time was spent: preparing to see the patient(eg.review tests), obtaining and/or reviewing separately otained hiistory, ordering medications,tests, procedures, referring, communicating with other health care process manager, indepentently interpreting results, counseling the patient and care coordination
[2025-03-30] MEDS: Albuterol/Ipratropium 3 ML UPD VIAL UPD (19:42)
[2025-03-30] MEDS: Normal Saline Flush 10 ML SYR IVP (20:33)
[2025-03-30] MEDS: Methocarbamol 500 MG TAB 1000 MG PO (20:33)
[2025-03-30] MEDS: Acetaminophen 325 MG TAB 650 MG PO (22:46)
[2025-03-31] VITALS (55 sets, daily range): BP systolic 104–147; BP diastolic 55–99; PULSE 74–93; RESP 17–33; TEMP 37.4–38; O2SAT 90–96
[2025-03-31] MEDS: DEXTROSE 5%-0.45% SALINE 1,000 ML 100 ML IV ×3 (00:34→19:09)
[2025-03-31] MEDS: Albuterol/Ipratropium 3 ML UPD VIAL UPD ×4 (03:17→20:08)
[2025-03-31 06:58] LABS: Abs Immature Grans 0.04 10^3/uL (0.0-0.06); HCT 37.4 % (36.0-46.0); HGB 12.2 g/dL (11.2-15.7); Immature Grans % 0.3 %; MCH 30.9 pg (27.0-33.0); MCHC 32.6 % (32.0-36.0); MCV 95 fL (80-95); MPV 9.6 fL (8.0-11.0); Platelet Count 308 10^3/uL (130-400); RBC 3.95 10^6/uL (3.93-5.22); RDW 14.3 % (11.7-14.6); RDW-SD 49.9 fL; WBC 11.75 10^3/uL (4.4-10.8)
[2025-03-31 07:13] LABS: Creatine Kinase 40 U/L (26-192)
[2025-03-31 07:20] LABS: ALT 22 U/L (14-59); AST 14 U/L (15-37); Albumin 3.7 g/dL (3.4-5.0); Alkaline Phosphatase 93 U/L (46-116); Anion Gap 8.8 mmol/L (3-11); BUN 6 mg/dL (7-18); Bilirubin, Total 0.6 mg/dL (0.2-1.0); CO2 28.2 mmol/L (21.0-32.0); Calcium 8.3 mg/dL (8.5-10.1); Chloride 107 mmol/L (98-107); Estimated GFR 98.93 (mL/min/1.73m2); Glucose 129 mg/dL (74-106); Magnesium 2.0 mg/dL (1.8-2.4); Potassium 3.3 mmol/L (3.5-5.1); Sodium 144 mmol/L (136-145); Total Protein 6.7 g/dL (6.4-8.2)
[2025-03-31] MEDS: Normal Saline Flush 10 ML SYR IVP ×2 (08:30→19:41)
[2025-03-31] MEDS: Nicotine 14 MG/24 HR PATCH TD (08:30)
[2025-03-31] MEDS: Acetaminophen 325 MG TAB 650 MG PO ×3 (08:31→18:13)
--- NOTE | 2025-03-31 08:46 | PDOC.CMIN ---
Date of service: 03/31/25 Time of Service: 08:46 Care Management Initial Assmt Initial Assessment Reason for Hospitalization: Over dose Functional Status/Living Situation Patient Presentation: Liset was lying in bed and sleeping, when CM arrived. She presented to the ED with altered mental status after family received a text from the patient stating not to worry about her anymore. Found altered with an empty bottle of Benadryl. Liset has a clinical Safety Patient Observer. Once this patient is medically cleared, she will be screened by mental health. An interim safety plan is in place. No PCP listed, T Doc will be Sebastián Carrillo if no PCP is provided. Per report, she has slurred speech and appears to remain altered, patient is not medically cleared at this time. CM will continue to follow. Town of Residence: [facility] Caregiver/Guardian: Per marcelo, Fransico Medications Medication Management: Issues/Barriers with Instructions/Directions (misuse/compliance) Advance Directives Advance Directives: Do you have an Advance Directive: N 02/17/24, 11:02 AD On File at [facility]: N 02/17/24, 08:39 Date Asked 03/30/25 03/30/25, 10:38 AD Date Reviewed COLST On File at [facility] No 03/30/25, 15:07 COLST Date Scanned Code Status Resuscitation Status Full Code Portal Pt does not currently have a portal and education provided: Yes Insurance Coverage/Financial Issues Insurance: AARP/UN.[facility] - [id number] Medicaid of [place] - [id number] Care Team Visit Care Team Role Provider Type Unknown Unknown Primary Care Provider STAFF PHYSICIAN Luiz Michel MD Emergency Provider [facility] STAFF PHYSICIAN Jean Giang MD Admit Provider [facility] STAFF PHYSICIAN Attending Provider Discharge Potential Discharge Needs: PCP F/U Appt and Other (MH screening) Anticipated Barriers to Discharge: Medical Status Patient/Family Education Needs: Review discharge instructions, discuss Ask Me Three Transportation: Other (Unknown at this time) Plan: Liset remains in the ICU with AMS at this time. Once she is medically cleared, she will be screened by [facility] MH. Anticipate, dispo is pending MH screening. It is recommended that she will follow up with a community provider, likely T Doc, and continue per her plan of care. Transportation pending. CM will continue to follow. 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 08/18/24. I&D followed by antibiotics Pharyngeal dysphagia (Acute) Hypocalcemia (Acute) Splenic mass (Acute) Burn of lower limb (Acute) Posterior tibial tendon dysfunction (PTTD) of both lower extremities (Acute) Chronic use of opiate for therapeutic purpose (Chronic) Traumatic arthritis of right ankle (Acute) Posterior tibial tendonitis (Acute) Fibromyalgia (Acute) Steroid-induced hyperglycemia (Acute) Hypoxia (Acute) Other disorders of eyelid (Acute) Pyogenic granuloma of eyelid (Acute) Blurry vision, bilateral (Acute) Panlobular emphysema (Acute) Chronic fatigue (Acute) Hesitancy (Acute) Degeneration of lumbar or lumbosacral intervertebral disc (Acute) Complications due to internal orthopedic device, implant, and graft (Acute) Menopausal flushing (Acute) Varicose vein of leg (Acute) Patellar bursitis (Acute) Rosacea (Acute) IBS (irritable bowel syndrome) (Chronic) Lumbar radicular syndrome (Acute) Seasonal allergic rhinitis (Acute) Senile nuclear sclerosis (Acute) Cervical spondylosis (Chronic) Tear film insufficiency (Acute) Blepharitis of both eyes (Acute) Diplopia (Acute) Vitreous syneresis (Acute) Arthritis (Acute) Chronic pain syndrome (Chronic) Anxiety (Chronic) Fatty liver (Acute) Bronchitis (Acute) Degeneration of cervical intervertebral disc (Acute) Brachial neuritis (Acute) Neuralgia and neuritis (Acute) Lumbago (Acute) 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) Chronic knee pain (Acute) Hip pain (Acute) Narcolepsy (Acute) Insomnia (Acute) Restless legs syndrome (Acute) Asthma (Chronic) Migraine (Chronic) Impaired glucose tolerance (Acute) Cervicalgia (Acute) Obesity (BMI 30-39.9) (Acute) Chronic back pain (Acute) Major depressive disorder, recurrent (Acute) History of lung cancer (Acute) Cigarette smoker (Chronic) Medical History COPD (chronic obstructive pulmonary disease) GERD (gastroesophageal reflux disease) Depression Chronic low back pain KATJA (obstructive sleep apnea) Primary cancer of right upper lobe of lung Surgical History H/O gastric bypass H/O cystoscopy S/P fine needle aspiration H/O colonoscopy H/O cervical spine surgery History of fundoplication H/O arthroscopy of shoulder H/O vaginal hysterectomy History of salpingectomy Family History Sister No problems noted. Brother No problems noted. Mother No problems noted. Father No problems noted. Brother No problems noted. Social History Smoking/Tobacco Use Status: Current every day Tobacco Type: cigarettes Tobacco: How many years used: 48 Quit status: has quit before Second Hand Exposure: Yes Smoking risk assessment performed?: Yes Alcohol Intake: current Alcohol Intake frequency: holidays/special occasions only Drug use: Occasionally Substance use type: marijuana Adopted: No Caregiver/Support person: Yes Foster care: No Household members: caregiver Housing: apartment Number of Children: 2 number of grandchildren: 1 Communication Needs: None Education Level: high school Do you need help understanding health information?: Rarely current occupation: Retired Pets and animals: No Sexually active: Yes Do you think of yourself as: straight/heterosexual Current gender identity: female What is your relationship status?: living with partner How often do you talk on the phone with friends or family?: three or more times per week How often do you get together with friends or relatives?: three or more times per week How often do you attend congregational or anabaptist services?: 1-3 times per year Do you belong to any clubs or organized social groups?: no Panel score (0-1 are the most socially isolated patients): 2 What type of physical activity do you participate in: walking Duration: 15-30 minutes/day Frequency: 1-2 times per week Shreya/Islam: Sabianism Special shreya needs: No Seatbelt use: always Helmet use: Yes Drive intox or ride w/intox driver's license examiner: No Do you feel safe at home: Yes Do you feel safe in your relationship?: Yes
--- NOTE | 2025-03-31 09:01 | CMSP_ITS ---
Date of service: 03/31/25 Time of Service: 09:01 Care Management Safety Plan Status Status: Interim Safety Plan Safety Plan: CM will respond to ICU to assess patient after patient has been medically cleared and assessed by screener. If screener deems patient meets criteria for psychiatric stabilization CM will facilitate interdepartmental huddle with [facility] screener for safety planning considerations and meet with patient to review [facility] policy and safety plan, establish individual wishes for treatment and maintain patient rights. In the interim; please note safety plan below to guide patient care while aw aiting further assessment in the ICU.? SAFETY PLAN: 1. Will remain on suicide precautions and in paper clothes.? 2. Will remain in room under direct supervision of one-on-one staff at all times provided by ESTELA, PIT CLERK quality assurance advisor. 3. May have paper cups, plates, finger foods as well as a cardboard spoon with which to eat meals. 4. Follow [facility] Management of the Admitted Behavioral Health Patient policy. 5. Comfort bath system only. 6. No personal belongings 7. No visitors at RN discretion 8. Phone: limited to personal injury paralegal on [facility] cordless phone at RN discretion. 9. Due to VOLUNTARY status, if patient wishes to leave [facility], staff will contact [facility] Crisis Screener ([phone]) and On-Call Schedule Supervisor ([phone]) as soon as possible. In the event of elopement, notify [facility] Police ([phone]). ? If deemed appropriate for inpatient psychiatric care, safety plan will be established with patient, and care team, to adhere to patient goals, identify restrictions based on behavioral status, address nutrition, and determine allowed personal belongings, tools for hygiene and personal care. As well plan will determine level of activity including ambulation, level of supervision, visitors, and determine privileges based on level of acuity, behaviors and level of engagement by patient.
--- NOTE | 2025-03-31 10:32 | W.PM.PROGNOT ---
Date of Service Date of service: 03/31/25 Time of Service: 10:32 Assessment and Plan Assessment and plan (1) Suicidal overdose: Status: Acute Assessment and plan: supportive measures. Benzo prn ordered in case of seizure 03/31/25 as above (2) Cigarette smoker: Status: Chronic Assessment and plan: add nicoderm (3) History of lung cancer: Status: Acute Assessment and plan: consider cxr in am if pt has respiratory compromise pt on lovenox for dvtp (4) Somnolence: Status: Acute Assessment and plan: improving, continue with supportive care dvtp with lovenox Subjective Subjective Interval history since last seen: Pt seen and examined. Pt more responsive this am but still very somnolent Exam Narrative Exam Narrative: responds to verbal stimuli no respiratory distress perrla eomi rrr no mrg Objective Last Vital Signs Temp 37.8 C H 03/31/25 07:50 Pulse 84 03/31/25 07:53 Resp 22 03/31/25 07:53 BP 147/55 H 03/31/25 07:53 Pulse Ox 95 03/31/25 07:53 Laboratory Results - last 24 hr 03/30/25 03/30/25 03/30/25 10:45 10:48 11:23 WBC 8.14 RBC 3.91 L Hgb 12.3 Hct 36.8 MCV 94 MCH 31.5 MCHC 33.4 RDW 14.5 Plt Count 286 MPV 8.9 Immature Gran % 0.2 Neutrophils % 69.5 Lymphocytes % 13.9 Monocytes % 8.2 Eosinophils % 7.5 Basophils % 0.7 Nucleated RBC % 0.0 Absolute Neutrophils 5.65 Absolute Lymphocytes 1.13 L Absolute Monocytes 0.67 Absolute Eosinophils 0.61 Absolute Basophils 0.06 Sodium 146 H Potassium 3.1 L Chloride 108 H Carbon Dioxide 27.0 Anion Gap 11.0 BUN 10 Creatinine 0.6 Est GFR (CKD-EPI 2020) 98.93 Glucose 83 Calcium 8.3 L Magnesium 2.3 Total Bilirubin 0.2 AST 16 ALT 19 Alkaline Phosphatase 97 Creatine Kinase 70 Total Protein 6.9 Albumin 3.7 Salicylates 7.9 Urine Opiates Screen Negative Urine Methadone Screen Negative Acetaminophen < 2 Ur Barbiturates Screen Negative Ur Tricyclics Screen Negative Ur Amphetamines Screen Negative U Benzodiazepines Scrn Negative Urine Cocaine Screen Positive A Ur THC Screen Negative Ethyl Alcohol < 3.0 0718/25 07/19/25 13:10 05:40 WBC 11.75 H RBC 3.95 Hgb 12.2 Hct 37.4 MCV 95 MCH 30.9 MCHC 32.6 RDW 14.3 Plt Count 308 MPV 9.6 Immature Gran % 0.3 Neutrophils % 80.1 Lymphocytes % 9.4 Monocytes % 8.3 Eosinophils % 1.5 Basophils % 0.4 Nucleated RBC % 0.0 Absolute Neutrophils 9.41 H Absolute Lymphocytes 1.10 L Absolute Monocytes 0.98 H Absolute Eosinophils 0.18 Absolute Basophils 0.05 Sodium 144 Potassium 3.3 L Chloride 107 Carbon Dioxide 28.2 Anion Gap 8.8 BUN 6 L Creatinine 0.6 Est GFR (CKD-EPI 2020) 98.93 Glucose 129 H Calcium 8.3 L Magnesium 2.0 Total Bilirubin 0.6 AST 14 L ALT 22 Alkaline Phosphatase 93 Creatine Kinase 40 Total Protein 6.7 Albumin 3.7 Salicylates 6.1 Urine Opiates Screen Urine Methadone Screen Acetaminophen < 2 Ur Barbiturates Screen Ur Tricyclics Screen Ur Amphetamines Screen U Benzodiazepines Scrn Urine Cocaine Screen Ur THC Screen Ethyl Alcohol Time Spent with Patient Time Spent with Patient: <25 minutes Time was spent: preparing to see the patient(eg.review tests), obtaining and/or reviewing separately otained hiistory, ordering medications,tests, procedures, referring, communicating with other health resident care director, indepentently interpreting results, counseling the patient and care coordination
--- NOTE | 2025-03-31 13:45 | RT.EKG_ITS ---
APPROVED REPORT Exam: Resting ECG Reason for Exam: prolonged qtc Patient Location: I HR:74 bpm ECG Measurements Heart Rate 74 AXIS PA 133 P 79 QRSd 92 QRS 68 QT 515 T 73 QTc 572 Conclusion Sinus rhythm...normal P axis, V-rate 50- 99 Nonspecific T abnrm, anterolateral leads...T <-0.10mV, I aVL V2-V6 Prolonged QT interval...QTc >500mS
[2025-03-31] MEDS: Enoxaparin 40 MG/0.4 ML SYR SC (14:41)
[2025-03-31] MEDS: SUMAtriptan 25 MG TAB 100 MG PO (14:53)
[2025-03-31] MEDS: Benzonatate 100 MG CAP PO (18:18)
[2025-03-31] MEDS: Methocarbamol 500 MG TAB 1000 MG PO (19:41)
[2025-03-31] MEDS: Potassium Chloride 20 MEQ TABCR PO (19:41)
[2025-04-01] VITALS (30 sets, daily range): BP systolic 111–137; BP diastolic 69–80; PULSE 73–91; RESP 18–33; TEMP 36.7–38.6; O2SAT 92–99
[2025-04-01] MEDS: Acetaminophen 325 MG TAB 650 MG PO ×2 (01:34→12:36)
[2025-04-01] MEDS: Albuterol/Ipratropium 3 ML UPD VIAL UPD ×2 (01:45→08:09)
[2025-04-01] MEDS: DEXTROSE 5%-0.45% SALINE 1,000 ML 100 ML IV (04:22)
[2025-04-01 07:12] LABS: Abs Immature Grans 0.04 10^3/uL (0.0-0.06); HCT 33.0 % (36.0-46.0); HGB 11.0 g/dL (11.2-15.7); Immature Grans % 0.4 %; MCH 31.9 pg (27.0-33.0); MCHC 33.3 % (32.0-36.0); MCV 96 fL (80-95); MPV 9.6 fL (8.0-11.0); Platelet Count 236 10^3/uL (130-400); RBC 3.45 10^6/uL (3.93-5.22); RDW 14.3 % (11.7-14.6); RDW-SD 50.4 fL; WBC 9.15 10^3/uL (4.4-10.8)
[2025-04-01 07:27] LABS: ALT 18 U/L (14-59); AST 10 U/L (15-37); Albumin 3.0 g/dL (3.4-5.0); Alkaline Phosphatase 80 U/L (46-116); Anion Gap 8.6 mmol/L (3-11); BUN 6 mg/dL (7-18); Bilirubin, Total 0.4 mg/dL (0.2-1.0); CO2 26.4 mmol/L (21.0-32.0); Calcium 7.9 mg/dL (8.5-10.1); Chloride 108 mmol/L (98-107); Estimated GFR 103.38 (mL/min/1.73m2); Glucose 132 mg/dL (74-106); Potassium 3.1 mmol/L (3.5-5.1); Sodium 143 mmol/L (136-145); Total Protein 6.1 g/dL (6.4-8.2)
--- NOTE | 2025-04-01 08:10 | RESPIRATORY ---
Spoke with pt about KATJA diagnosis and she advised she had previously had a sleep study and briefly had a home unit but her provider ended up taking it back because they didn't see an improvement.
[2025-04-01] MEDS: Nicotine 14 MG/24 HR PATCH TD (08:24)
[2025-04-01] MEDS: Benzonatate 100 MG CAP PO ×3 (08:24→19:28)
[2025-04-01] MEDS: Potassium Chloride 20 MEQ TABCR PO ×2 (08:24→19:27)
[2025-04-01] MEDS: Normal Saline Flush 10 ML SYR IVP ×2 (08:27→19:28)
[2025-04-01] MEDS: SUMAtriptan 50 MG TAB 100 MG PO (12:36)
[2025-04-01] MEDS: Enoxaparin 40 MG/0.4 ML SYR SC (13:23)
--- NOTE | 2025-04-01 15:26 | W.PM.PROGNOT ---
Date of Service Date of service: 04/01/25 Time of Service: 15:26 Assessment and Plan Assessment and plan (1) Suicidal overdose: Status: Acute Assessment and plan: supportive measures. Benzo prn ordered in case of seizure 03/31/25 as above 04/01/25 has been cleared by poison control awaiting input from mental health (2) Cigarette smoker: Status: Chronic Assessment and plan: add nicoderm (3) History of lung cancer: Status: Acute Assessment and plan: consider cxr in am if pt has respiratory compromise pt on lovenox for dvtp (4) Somnolence: Status: Acute Assessment and plan: improving, continue with supportive care dvtp with lovenox 04/01/25 resolved (5) H/O gastric bypass: Assessment and plan: add thiamine (6) Migraine: Status: Chronic Assessment and plan: treated with imitrex with good response Subjective Subjective Interval history since last seen: Pt seen and examined in her room. c/o headache bi temporal with phono/photo phobia Exam Narrative Exam Narrative: heent-ncat mmm eomi perrla neck-no lad no jvd cv-rrr no mrg pulm-ctab no amu abd-sntndbsa being seen by Mental health Objective Last Vital Signs Temp 37.0 C 04/01/25 12:00 Pulse 89 04/01/25 11:59 Resp 33 H 04/01/25 11:59 BP 113/76 04/01/25 11:59 Pulse Ox 95 04/01/25 11:59 Laboratory Results - last 24 hr 04/01/25 05:33 WBC 9.15 RBC 3.45 L Hgb 11.0 L Hct 33.0 L MCV 96 H MCH 31.9 MCHC 33.3 RDW 14.3 Plt Count 236 MPV 9.6 Immature Gran % 0.4 Neutrophils % 78.8 Lymphocytes % 11.5 Monocytes % 7.9 Eosinophils % 1.0 Basophils % 0.4 Nucleated RBC % 0.0 Absolute Neutrophils 7.21 H Absolute Lymphocytes 1.05 L Absolute Monocytes 0.72 Absolute Eosinophils 0.09 Absolute Basophils 0.04 Sodium 143 Potassium 3.1 L Chloride 108 H Carbon Dioxide 26.4 Anion Gap 8.6 BUN 6 L Creatinine 0.5 L Est GFR (CKD-EPI 2020) 103.38 Glucose 132 H Calcium 7.9 L Total Bilirubin 0.4 AST 10 L ALT 18 Alkaline Phosphatase 80 Total Protein 6.1 L Albumin 3.0 L Time Spent with Patient Time Spent with Patient: 25-34 minutes Time was spent: preparing to see the patient(eg.review tests), obtaining and/or reviewing separately otained hiistory, ordering medications,tests, procedures, referring, communicating with other health director of managed care, indepentently interpreting results, counseling the patient and care coordination
--- NOTE | 2025-04-01 17:39 | CMPROGNOTE_ITS ---
Date of service: 04/01/25 Time of Service: 17:39 Care Management Progress Note Progress Note Text Progress Note Text: Per provider, Liset is medically cleared. CM contacted [facility] to screen Liset. CM huddled with [facility] regarding Liset's plan of care. Liset is experiencing SI with intent and plan to over dose on Benadryl. Per [facility], Liset acknowledged the potential lethality of the Benadryl overdose and expressed she thought it would result in . The patient is reportedly open to considering inpatient treatment. [facility] does not believe Liset would be appropriate to be safety planned home, at this time. Interim safety plan in place, pending further assessment from [facility]. Per [facility], Liset has expressed dissatisfaction with the safety food tray, though it is deemed appropriate for the time being. CM will contiunue to follow. Social Determinants of Health Screening Will the Patient Participate in the Screening?: Unable to obtain
--- NOTE | 2025-04-01 17:39 | PDOC.CMPRO ---
Date of service: 04/01/25 Time of Service: 17:39 Care Management Progress Note Progress Note Text Progress Note Text: Per provider, Liset is medically cleared. CM contacted [facility] to screen Liset. CM huddled with [facility] regarding Liset's plan of care. Liset is experiencing SI with intent and plan to over dose on Benadryl. Per [facility], Liset acknowledged the potential lethality of the Benadryl overdose and expressed she thought it would result in . The patient is reportedly open to considering inpatient treatment. [facility] does not believe Liset would be appropriate to be safety planned home, at this time. Interim safety plan in place, pending further assessment from [facility]. Per [facility], Liset has expressed dissatisfaction with the safety food tray, though it is deemed appropriate for the time being. CM will contiunue to follow. Social Determinants of Health Screening Will the Patient Participate in the Screening?: Unable to obtain
--- NOTE | 2025-04-01 17:49 | CMSP_ITS ---
Date of service: 04/01/25 Time of Service: 17:53 Care Management Safety Plan Status Status: Interim Reason for Wait Reason for Wait: Assessment/Screening Safety Plan Safety Plan: CM will respond to ED to assess patient after patient has been medically cleared and assessed by screener. If screener deems patient meets criteria for psychiatric stabilization CM will facilitate interdepartmental huddle with [facility] screener for safety planning considerations and meet with patient to review [facility] policy and safety plan, establish individual wishes for treatment and maintain patient rights. In the interim; please note safety plan below to guide patient care while awaiting further assessment in the ED.? SAFETY PLAN: 1. Will remain on suicide precautions and in paper clothes.? 2. Will remain in room under direct supervision of one-on-one staff at all times provided by ESTELA, SENIOR HR MANAGER broadcast program director. 3. May have paper cups, plates, finger foods as well as a cardboard spoon with which to eat meals. 4. Follow [facility] Management of the Admitted Behavioral Health Patient policy. 5. Comfort bath system only. 6. Patient's personal phone is in the room with other personal belongings, at RN discretion 7. Visitors, at RN discretion 8. Phone contact permitted to supportive personnel at RN discretion. 9. Due to VOLUNTARY status, if patient wishes to leave [facility], staff will contact [facility] Crisis Screener ([phone]) and On-Call Telegraphic Typewriter Operator Chief ([phone]) as soon as possible. In the event of elopement, notify [facility] Police ([phone]). If deemed appropriate for inpatient psychiatric care, safety plan will be established with patient, and care team, to adhere to patient goals, identify restrictions based on behavioral status, address nutrition, and determine allowed personal belongings, tools for hygiene and personal care. As well plan will determine level of activity including ambulation, level of supervision, visitors, and determine privileges based on level of acuity, behaviors and level of engagement by patient.
[2025-04-01] MEDS: Methocarbamol 500 MG TAB 1000 MG PO (19:28)
[2025-04-02] VITALS (8 sets, daily range): BP systolic 116–139; BP diastolic 81–91; PULSE 70–90; RESP 18–35; O2SAT 92–96
[2025-04-02] MEDS: Acetaminophen 325 MG TAB 650 MG PO (04:24)
[2025-04-02 07:05] LABS: Abs Immature Grans 0.03 10^3/uL (0.0-0.06); HCT 35.2 % (36.0-46.0); HGB 11.8 g/dL (11.2-15.7); Immature Grans % 0.4 %; MCH 31.7 pg (27.0-33.0); MCHC 33.5 % (32.0-36.0); MCV 95 fL (80-95); MPV 9.5 fL (8.0-11.0); Platelet Count 266 10^3/uL (130-400); RBC 3.72 10^6/uL (3.93-5.22); RDW 14.0 % (11.7-14.6); RDW-SD 49.3 fL; WBC 8.51 10^3/uL (4.4-10.8)
[2025-04-02 07:42] LABS: ALT 17 U/L (14-59); AST 11 U/L (15-37); Albumin 2.9 g/dL (3.4-5.0); Alkaline Phosphatase 84 U/L (46-116); Anion Gap 8.4 mmol/L (3-11); BUN 8 mg/dL (7-18); Bilirubin, Total 0.3 mg/dL (0.2-1.0); CO2 25.6 mmol/L (21.0-32.0); Calcium 8.5 mg/dL (8.5-10.1); Chloride 109 mmol/L (98-107); Estimated GFR 103.38 (mL/min/1.73m2); Glucose 107 mg/dL (74-106); Potassium 3.7 mmol/L (3.5-5.1); Sodium 143 mmol/L (136-145); Total Protein 6.5 g/dL (6.4-8.2)
[2025-04-02] MEDS: Potassium Chloride 20 MEQ TABCR PO (09:07)
[2025-04-02] MEDS: Nicotine 14 MG/24 HR PATCH TD (09:07)
[2025-04-02] MEDS: Benzonatate 100 MG CAP PO (09:07)
[2025-04-02] MEDS: Normal Saline Flush 10 ML SYR IVP (09:08)
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
--- NOTE | 2025-04-02 13:03 | PDOC.CMDIS ---
Date of service: 04/02/25 Time of Service: 13:26 LACE Index Scoring Tool Questions: Length of Stay (in days): 3 Was the patient admitted via the E.D.?: Yes Comorbidities: Chronic Pulmonary Disease E.D. Visits: 2 Answers: Total Score: 10 Risk of Readmission: High Risk Care Management Discharge Plan Reason for Hospitalization: Over dose Discharge Plan: Liset was screened by [facility] and was safety planned home with a new medication lock bag. She was agreeable to [facility] daily check in's and [facility] therapist referral. It is recommended that Liset follow up with her PCP and continue with her plan of care. Liset was transported home by her partner. Patient/Family Education Needs: Review of discharge instructions, activitly, limitations, and plan of care. Discuss ask me three. Services Needed at Discharge: Psychiatric Facility ([facility] will continue to follow. ) SDOH Health Related Social Needs: Health related social needs food insecurity house/econ circumstance Health related social needs details will meet with JOSH
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
--- NOTE | 2025-04-05 06:52 | NUR.NOTE ---
Access chart to reconcile EKG orders with EKG's in [facility]. Duplicate order cancelloed. Nursing Note:
--- NOTE | 2025-04-10 21:58 | PDOC.MHCN_ITS ---
Date of service: 04/01/25 Time of Service: 11:30 PHQ-9 Over the last 2 weeks, how often have you been bothered by any of the following problems? 1. Little interest or pleasure in doing things: more than half the days 2. Feeling down, depressed, or hopeless: more than half the days 3. Trouble falling or staying asleep, or sleeping too much: not at all 4. Feeling tired or having little energy: several days 5. Poor appetite or overeating: not at all 6. Feeling bad about yourself - or that you are a failure or have let yourself and your family down: not at all 7. Trouble concentrating on things, such as reading the newspaper or watching television: not at all 8. Moving or speaking so slowly that other people could have noticed? - Or the opposite - being so fidgety or restless that you have been moving around a lot more than usual: not at all 9. Thoughts that you would be better off or of hurting yourself in some way: nearly every day Total score: 8 If you checked off any problems, how difficult have these problems made it for you to do your work, take care of things at home, or get along with other people?: somewhat difficult PHQ-9 Results: Positive Source: Developed by Drs. Jean Alvarado, Pia Pillai, Mike Walker and colleagues, with an educational marielos from [employer]. Mental Health Emergency Note Release [facility] release signed:: Yes Reason for Visit Intentional Overdose In the last 2 weeks has the pt presented for ES prior to today?: No Client Information Client is: New Well Housed: Yes Non Suicidal Self Injury Current: No History: No Safety Risk/Harm to Self or Others Current Ideation to Harm Self or Others: Yes to self. Intent: yes, has intent. Plan: yes,has a plan. Risk: Does risk to harm exist?: yes. Risk: High Risk Duty to warn indicated: No Asssessment/Mental Status Appearance: Disheveled Attitude: Cooperative Behavior: Unremarkable Speech: Normal Affect: Normal and Cogruent with mood Mood: Euthymic and Depressed Thought process: Unremarkable Hallucinations: No Delusions: No Attention: Unremarkable Perception: Not impaired Orientation: Fully orientated Memory: Intact Insight: Fair Judgement: Fair Neurovegetative Symptoms Sleep: No change Appetitie: No change Interests: No change Energy: No change Substance Use: Drug Issues: Other Do you use nicotine?: Yes Have you used substances in the last 7 days?: yes, Client overdosed on an entire bottle of benadryl with intent to . Client continues to have access to OTC meds in the community and states the only thing that would keep her from doing it again is if her significant other makes major changes in his behavior. Client is staking her safety on the actions of others. Additional Issues: Assaultive/Threatening Behavior: No Medical Concerns: Yes Client engaged in active self harm w/weapon: No Threatening to run away: No Child reported abuse/neglect: No Voluntarily presenting for services: Yes Domestic violence is a concern: No Extreme Psychosis or extreme behavior is present: No Impression Client remains at high risk due to current ideation after intentional overdose on Benadryl with intent to . Client uses present tense language such as I'm just done, I'm tired of being alone even when I'm not alone and referring to serious physical health issues as reasons for giving up. Client presented in standard hospital gown, seated on the side of the bed as lunch was delivered. Client exhibited abruptness, anger, and offense towards receiving food service sales representatives without prior choice and the use of paper safety utensils. During the assessment, the client appeared visibly upset and expressed pain due to a migraine. Client's attention was focused on food and migraine issues, leading clinician to advocate for consultative meal replacement and request a provider visit. Upon clinician's return after the meal for intake and a second attempt at crisis assessment, the client displayed a friendly and cooperative demeanor, candidly discussing a desire to due to feelings of loneliness, neglect, and physical health conditions. Client showed limited deterrents and natural supports within the community. Client agreed to voluntary inpatient mental health treatment to enhance resilience and develop coping skills. The intake process was completed for case management and therapy services. Despite the willingness to engage in treatment, the client remains at high risk due to present-tense suicidal ideation, relying on others' actions and improvements for personal safety. Plan/Disposition Recommended Disposition: Hospitalization facilities contacted. Plan: Client will wait in unit for voluntary placement for mental health inpatient treatment. Client understands that if she attempts to leave, the voluntary option will be removed and client will be held involuntarily for treatment due to the severity of the suicidal act and lack of deterrents in a safety plan. Reports/communication Outcome discussed with: ED/Personnel
== END 2025-04-02 12:53 | disposition home or self-care (01) | DRG 918 ==
LOC: ER 15:07 → ICU 16:35
PROVIDERS: Family Medicine; Admitting Provider Hospitalist; Emergency Provider Student in an Organized Health Care Education/Training Program; Responsible Provider Family Medicine; Visit Provider Hospitalist
DX: T45.0X2A Poisoning by antiallergic and antiemetic drugs, intentional self-harm, initial encounter (principal); F33.9 Major depressive disorder, recurrent, unspecified; R41.0 Disorientation, unspecified; G43.909 Migraine, unspecified, not intractable, without status migrainosus; F17.210 Nicotine dependence, cigarettes, uncomplicated; Z85.118 Personal history of other malignant neoplasm of bronchus and lung; R40.2421 Glasgow coma scale score 9-12, in the field [EMT or ambulance]; Z98.84 Bariatric surgery status; Z79.899 Other long term (current) drug therapy; R60.0 Localized edema; G47.419 Narcolepsy without cataplexy; R13.13 Dysphagia, pharyngeal phase; M79.7 Fibromyalgia; K76.0 Fatty (change of) liver, not elsewhere classified; K58.9 Irritable bowel syndrome, unspecified; M51.17 Intervertebral disc disorders with radiculopathy, lumbosacral region; J43.1 Panlobular emphysema; L71.9 Rosacea, unspecified; G25.81 Restless legs syndrome; K21.9 Gastro-esophageal reflux disease without esophagitis; Z59.41 Food insecurity; Z59.89 Other problems related to housing and economic circumstances
CPT/HCPCS: 00123; 36415; 80053; 80307; 82550; 93005; 96127; 96360; 96361; 99291; J1650; 70450; 80320; 80329; 83735; 85025; 93010; 94640; 94760; 99222; 99231; 99232; 99239; J3480; J7620

== ENCOUNTER 2025-06-18 13:46 | Inpatient (IN) | payer MEDICARE, MEDICAID, SELFPAY ==
[2025-06-18] VITALS (22 sets, daily range): BP systolic 101–141; BP diastolic 46–96; PULSE 73–93; RESP 16–41; TEMP 36.6; O2SAT 92–98
--- NOTE | 2025-06-18 13:45 | DI.RAD_ITS ---
Exam(s) XR CHEST 2V PA LATERAL EXAM: XR CHEST 2V PA LATERAL CLINICAL HISTORY: productive cough. TECHNIQUE: 2D digital imaging was performed. COMPARISON: CR,XR XR PORTABLE CHEST AP from 10/04/2024 FINDINGS: 2 views: Fusion plate in the cervical spine again noted. Heart size is normal. The mediastinum is not widened. There is no infiltrate in the right middle lobe. Pleural thickening in the right lung apex is unchanged. There are no pleural effusions. Left lung remains clear. IMPRESSION: Right middle lobe infiltrate. DATA REPOSITORY: RADIATION DOSE DELIVERED:
--- NOTE | 2025-06-18 13:45 | RT.EKG_ITS ---
APPROVED REPORT Exam: Resting ECG Reason for Exam: sob Patient Location: E HR:90 bpm ECG Measurements Heart Rate 90 AXIS WY 135 P 76 QRSd 89 QRS 58 QT 366 T 50 QTc 449 Conclusion Sinus rhythm, rate 90 No interval abnormalities No STEMI Compared to priors, prolonged QTc has improved
[2025-06-18] MEDS: Albuterol/Ipratropium 3 ML UPD VIAL UPD ×2 (13:57→18:41)
[2025-06-18] MEDS: methylPREDNISolone SUCC 125 MG VIAL IVP (14:01)
--- NOTE | 2025-06-18 14:02 | W.ED.GENAD ---
Discharge Plan Disposition Patient Disposition: Admit to [facility] Condition: Stable Discharge Details Clinical Impression: Pneumonia involving right lung, Acute exacerbation of chronic obstructive pulmonary disease (COPD) Primary Care Provider: Unknown,Unknown ED Provider: Magaly Lang Home Meds and New Rx's Prescriptions: No Action hydrocodone-acetaminophen 7.5-325 mg tablet 1 tab PO Q6H PRN (Reason: pain) methocarbamol 500 mg tablet 1,000 mg PO HS Patient Comments: TAKE TWO TABLETS BY MOUTH DAILY AT 9PM AT BEDTIME zolpidem 5 mg tablet 5 mg PO QHS buspirone 15 mg tablet 15 mg PO .COMPLEX Rx Instructions: 15 mg orally QD-TID; ondansetron HCl 4 mg tablet 4 mg PO Q8H PRN (Reason: nausea) sumatriptan succinate 100 mg tablet 100 mg PO ONCE PRN (Reason: migraine headache) (DME) lancets Misc See Rx Instructions .Route Rx Instructions: Check blood glucose 2x daily (DME) OneTouch Ultra Test Strip See Rx Instructions .Route Rx Instructions: Test blood glucose 2x daily methylphenidate HCl 10 mg tablet 10 mg PO DAILY Patient Comments: take at 1300 fluticasone propion-salmeterol [Advair HFA] 115-21 mcg/actuation HFA aerosol inhaler 2 puff inhalation BID Qty: 12 12RF benzonatate 200 mg capsule 200 mg PO TID PRN (Reason: cough) Qty: 90 12RF methylphenidate HCl 20 mg tablet 40 mg PO DAILY montelukast 10 mg tablet 10 mg PO DAILY pregabalin 300 mg capsule 300 mg PO BID Patient Comments: TAKE ONE CAPSULE BY MOUTH TWICE DAILY DAILY MAX 2 CAPSULES ropinirole 2 mg tablet 2 mg PO HS Patient Comments: TAKE ONE TABLET BY MOUTH DAILY AT 9PM AT BEDTIME lidocaine HCl [Lidocaine Viscous] 2 % solution 1 applic mucous membrane .q6 prn Patient Comments: MIX 5 MLS LIDOCAINE WITH 5 MLS MYLANTA OR MAALOX, SWISH AND SWALLOW FOR SWALLOWING PAIN EVERY 6 HOURS NEEDED duloxetine 60 mg capsule,delayed release(DR/EC) 120 mg PO DAILY (DME) OneTouch Ultra Test Strip MISCELLANEOUS Patient Comments: USE TO TEST TWO TIMES A DAY omeprazole 40 mg capsule,delayed release(DR/EC) 40 mg PO DAILY Patient Comments: TAKE ONE CAPSULE BY MOUTH EVERY DAY azithromycin 250 mg tablet 250 mg PO DAILY Rx Instructions: 250 mg orally; HPI General Mode of arrival: ambulatory. Date/Time Provider Initiated Documentation: 06/18/25 13:51. Limitations to Documentation: no limitations. Information obtained by: patient and old records reviewed. HPI Narrative: This is a 64-year-old female patient with history of COPD, lung cancer in remission, presenting for evaluation of shortness of breath. The patient reports that she has been sick for several days, feels like she has an infection like pneumonia in her lungs. She has had a cough productive of sputum, denies hemoptysis. States that her work of breathing worsened today, prompting her to seek care. She has not had fevers, chest pain, nausea or vomiting. She has been using her nebulizers at home without significant improvement. Has not been on any steroids or antibiotics recently. Denies leg swelling or pain, does not wear oxygen at home. Related Data Home Medications ?Medication ?Instructions ?Recorded ?Confirmed blood sugar diagnostic (OneTouch 02/17/24 01/24/25 Ultra Test strips) duloxetine 60 mg capsule,delayed 120 mg PO DAILY 02/17/24 01/24/25 release lidocaine HCl 2 % mucosal solution 1 applic mucous membrane .q6 prn 02/17/24 01/24/25 (Lidocaine Viscous) methylphenidate HCl 20 mg tablet 40 mg PO DAILY 02/17/24 03/30/25 montelukast 10 mg tablet 10 mg PO DAILY Allergies 02/17/24 01/24/25 omeprazole 40 mg capsule,delayed 40 mg PO DAILY 02/17/24 01/24/25 release pregabalin 300 mg capsule 300 mg PO BID 02/17/24 01/24/25 ropinirole 2 mg tablet 2 mg PO HS 02/17/24 01/24/25 blood sugar diagnostic (OneTouch 05/03/24 01/24/25 Ultra Test strips) buspirone 15 mg tablet 15 mg PO .COMPLEX 05/03/24 01/24/25 hydrocodone 7.5 mg-acetaminophen 1 tab PO Q6H PRN pain 05/03/24 03/30/25 325 mg tablet lancets 05/03/24 01/24/25 methocarbamol 500 mg tablet 1,000 mg PO HS 05/03/24 01/24/25 ondansetron HCl 4 mg tablet 4 mg PO Q8H PRN nausea 05/03/24 01/24/25 sumatriptan succinate 100 mg tablet 100 mg PO ONCE PRN migraine 05/03/24 03/30/25 headache zolpidem 5 mg tablet 5 mg PO QHS 05/03/24 03/30/25 fluticasone propionate 115 2 puff inhalation BID #12 grams 10/25/24 03/30/25 mcg-salmeterol 21 mcg/actuation HFA inhaler (Advair HFA) methylphenidate HCl 10 mg tablet 10 mg PO DAILY 10/25/24 03/30/25 benzonatate 200 mg capsule 200 mg PO TID PRN cough #90 caps 01/23/25 03/30/25 azithromycin 250 mg tablet 250 mg PO DAILY COPD 03/30/25 03/30/25 Previous Rx's ?Medication ?Instructions ?Recorded fluticasone propionate 115 2 puff inhalation BID #12 grams 10/25/24 mcg-salmeterol 21 mcg/actuation HFA inhaler (Advair HFA) benzonatate 200 mg capsule 200 mg PO TID PRN cough #90 caps 01/23/25 Allergies Allergy/AdvReac Type Severity Reaction Status Date / Time ketorolac (From Toradol) Allergy Severe Anaphylaxis Verified 01/23/25 15:09 ibuprofen (From Motrin) Allergy Intermediate Itching Verified 01/23/25 15:09 General Stated Complaint: SOB DMITRI: 2 Exam Narrative Exam Narrative: Gen: awake and alert, in notable respiratory distress HEENT: PERRL, EOMs full and without nystagmus. External ears and nose normal, mucous membranes moist. Neck: Supple, full range of motion, no observable masses Lungs:Tachypnea to the 30's noted, lung sounds clear and equal bilaterally with very infrequent scattered crackles, no rhonchi or rales CV: Heart with regular rate and rhythm, no murmurs auscultated. Strong and symmetrical radial pulses. Abdomen: Soft, nondistended, non-tender to palpation. No rigidity, rebound tenderness, or guarding. MSK: No joint swelling, no redness. Full ROM without limitation, no external traumatic findings. No peripheral edema Skin: No rashes or lesions to visualized skin. Normal color, warm, and dry. Neuro: Symmetrical face, patient with frequent movements consistent with tardive dyskinesia, 5/5 strength in all muscle groups x4 extremities. No sensory deficits. Ambulates with steady gait. Psych: Appropriate for situation. Course Vital Signs Vital signs: Vital Signs Pulse 92 H 06/18/25 13:50 Respiratory Rate 22 06/18/25 13:50 Blood Pressure 141/72 H 06/18/25 13:50 Pulse Oximetry 95 06/18/25 13:50 Pulse 88 06/18/25 13:57 Respiratory Rate 22 06/18/25 13:57 Blood Pressure 141/72 H 06/18/25 13:50 Blood Pressure Position Supine 06/18/25 13:50 Pulse Oximetry 94 06/18/25 13:57 Oxygen Delivery Method Room Air 06/18/25 13:57 Oxygen Flow Rate 0 06/18/25 13:57 Medical Decision Making This is a 64-year-old female patient presenting for evaluation of shortness of breath and cough. Differential includes but is not limited to viral URI, pneumonia, bronchitis, reactive airway disease exacerbation, pulmonary edema was considered, as well as pulmonary embolism in this patient with a cancer history and notable tachypnea. No chest pain to suggest ACS, considered arrhythmia, pericarditis and myocarditis. I obtained an EKG which shows sinus rhythm without evidence of ischemia, interval abnormality, or ectopy. No significant changes when compared to priors. Will obtain a Fluvid, and labs to include CBC, CMP, magnesium, troponin, BNP, and D-dimer. Obtain chest x-ray and provide the patient with a duo nebulizer treatment and a dose of Solu-Medrol. - I reviewed the patient's laboratory studies, which show a very mild leukocytosis to 11.6, no anemia or thrombocytopenia. Chemistry panel without electrolyte derangement, evidence of kidney or liver dysfunction. Troponin is negative and without interval increase in 1 hour delta recheck. BNP is low and her COVID swab is negative. Her D-dimer was quite elevated, chest x-ray shows a right middle lobe consolidation. The decision to move forward with CT pulmonary embolism scan. I reviewed these images, which redemonstrate the right sided multilobar pneumonia but do not show any pulmonary embolisms. On road test, though the patient does not have a new oxygen requirement she is markedly short of breath, with tachypnea greater than 30 breaths/min and 1-2 word sentences. I feel that her work of breathing warrants inpatient admission for intravenous antibiosis. She received her first dose of ceftriaxone and azithromycin in the emergency department. I reached out to the hospitalist service who is graciously accepted this patient for admission, and she was transferred to their service without incident. Remained hemodynamically appropriate while under my care. 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 08/18/24. I&D followed by antibiotics Pharyngeal dysphagia (Acute) Hypocalcemia (Acute) Splenic mass (Acute) Burn of lower limb (Acute) Posterior tibial tendon dysfunction (PTTD) of both lower extremities (Acute) Chronic use of opiate for therapeutic purpose (Chronic) Traumatic arthritis of right ankle (Acute) Posterior tibial tendonitis (Acute) Fibromyalgia (Acute) Steroid-induced hyperglycemia (Acute) Hypoxia (Acute) Other disorders of eyelid (Acute) Pyogenic granuloma of eyelid (Acute) Blurry vision, bilateral (Acute) Panlobular emphysema (Acute) Chronic fatigue (Acute) Hesitancy (Acute) Degeneration of lumbar or lumbosacral intervertebral disc (Acute) Complications due to internal orthopedic device, implant, and graft (Acute) Menopausal flushing (Acute) Varicose vein of leg (Acute) Patellar bursitis (Acute) Rosacea (Acute) IBS (irritable bowel syndrome) (Chronic) Lumbar radicular syndrome (Acute) Seasonal allergic rhinitis (Acute) Senile nuclear sclerosis (Acute) Cervical spondylosis (Chronic) Tear film insufficiency (Acute) Blepharitis of both eyes (Acute) Diplopia (Acute) Vitreous syneresis (Acute) Arthritis (Acute) Chronic pain syndrome (Chronic) Anxiety (Chronic) Fatty liver (Acute) Bronchitis (Acute) Degeneration of cervical intervertebral disc (Acute) Brachial neuritis (Acute) Neuralgia and neuritis (Acute) Lumbago (Acute) 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) Chronic knee pain (Acute) Hip pain (Acute) Narcolepsy (Acute) Insomnia (Acute) Restless legs syndrome (Acute) Asthma (Chronic) Migraine (Chronic) Impaired glucose tolerance (Acute) Cervicalgia (Acute) Obesity (BMI 30-39.9) (Acute) Chronic back pain (Acute) Major depressive disorder, recurrent (Acute) History of lung cancer (Acute) Cigarette smoker (Chronic) Medical History COPD (chronic obstructive pulmonary disease) GERD (gastroesophageal reflux disease) Depression Chronic low back pain KATJA (obstructive sleep apnea) Primary cancer of right upper lobe of lung Surgical History H/O gastric bypass H/O cystoscopy S/P fine needle aspiration H/O colonoscopy H/O cervical spine surgery History of fundoplication H/O arthroscopy of shoulder H/O vaginal hysterectomy History of salpingectomy Family History Sister No problems noted. Brother No problems noted. Mother No problems noted. Father No problems noted. Brother No problems noted. Social History Smoking/Tobacco Use Status: Current every day Tobacco Type: cigarettes Tobacco: How many years used: 48 Quit status: has quit before Second Hand Exposure: Yes Smoking risk assessment performed?: Yes Alcohol Intake: current Alcohol Intake frequency: holidays/special occasions only Drug use: Occasionally Substance use type: marijuana Adopted: No Caregiver/Support person: Yes Foster care: No Household members: caregiver Housing: apartment Number of Children: 2 number of grandchildren: 1 Communication Needs: None Education Level: high school Do you need help understanding health information?: Rarely current occupation: Retired Pets and animals: No Sexually active: Yes Do you think of yourself as: straight/heterosexual Current gender identity: female What is your relationship status?: living with partner How often do you talk on the phone with friends or family?: three or more times per week How often do you get together with friends or relatives?: three or more times per week How often do you attend zoroastrianism or amish services?: 1-3 times per year Do you belong to any clubs or organized social groups?: no Panel score (0-1 are the most socially isolated patients): 2 What type of physical activity do you participate in: walking Duration: 15-30 minutes/day Frequency: 1-2 times per week Shreya/Judaism: Nondenominational Special shreya needs: No Seatbelt use: always Helmet use: Yes Drive intox or ride w/intox truck driver teamster: No Do you feel safe at home: Yes Do you feel safe in your relationship?: Yes
[2025-06-18 14:16] LABS: Abs Immature Grans 0.04 10^3/uL (0.0-0.06); HCT 36.8 % (36.0-46.0); HGB 11.8 g/dL (11.2-15.7); Immature Grans % 0.3 %; MCH 29.1 pg (27.0-33.0); MCHC 32.1 % (32.0-36.0); MCV 91 fL (80-95); MPV 8.6 fL (8.0-11.0); Platelet Count 519 10^3/uL (130-400); RBC 4.06 10^6/uL (3.93-5.22); RDW 13.4 % (11.7-14.6); RDW-SD 44.9 fL; WBC 11.67 10^3/uL (4.4-10.8)
[2025-06-18 14:37] LABS: ALT 12 U/L (14-59); AST 8 U/L (15-37); Albumin 3.1 g/dL (3.4-5.0); Alkaline Phosphatase 101 U/L (46-116); Anion Gap 9.6 mmol/L (3-11); BUN 16 mg/dL (7-18); Bilirubin, Total 0.4 mg/dL (0.2-1.0); CO2 26.4 mmol/L (21.0-32.0); Calcium 8.9 mg/dL (8.5-10.1); Chloride 107 mmol/L (98-107); Estimated GFR 81.21 (mL/min/1.73m2); Glucose 163 mg/dL (74-106); Magnesium 2.1 mg/dL (1.8-2.4); NT-proBNP 124 pg/mL (<300); Potassium 3.5 mmol/L (3.5-5.1); Sodium 143 mmol/L (136-145); Total Protein 7.8 g/dL (6.4-8.2); Troponin I 4 ng/L (<or=51)
[2025-06-18 14:43] LABS: D-Dimer 1240 ng/mlFEU (<500)
--- NOTE | 2025-06-18 14:45 | DI.CT_ITS ---
Exam(s) CT CHEST PE CTA EXAM: CT CHEST PE CTA CLINICAL HISTORY: RML PNA, positive dimer, hx lung cancer. TECHNIQUE: Imaging Protocol: Axial CT angiography was performed with multi- slice acquisition and multi-planar and/or 3D reconstructions. Lung Computer Aided Detection (CAD) was utilized. CONTRAST MATERIAL: Intravenous: Omnipaque 350 contrast volume:70 mL COMPARISON: CT CT CHEST/ABD/PEL W from 02/17/2024 CR XR CHEST 2V PA LATERAL from 06/18/2025 FINDINGS: Tracheobronchial tree: Patent where visualized. No bronchiectasis. Pulmonary parenchyma: Moderate centrilobular emphysema. There is a multinodular infiltrate seen in the right lung, particularly the right lower lobe. More confluent opacities are seen in the right middle and right lower lobes. There is a large band like opacity in the right lung apex. This area is more confluent and may be related to the patient's known lung carcinoma. There are small opacities seen in the left lingula. Pulmonary Arteries: No evidence of filling defect to suggest pulmonary emboli. Mediastinum and [place]: No dominant adenopathy or fluid collection. The esophagus is unremarkable. There is a small hiatal hernia. Surgical clips are seen at the gastroesophageal junction. Visualized thyroid gland: Unremarkable. Pleura: No effusion or pneumothorax. Heart: The heart is not dilated. No coronary artery calcifications are seen. No pericardial effusion. Aorta: Thoracic aorta non-dilated. No evidence of dissection. Atherosclerotic calcification is present. Upper abdomen: Unremarkable. Soft tissues: Unremarkable. Bones: Within normal limits for the patient's age. IMPRESSION: 1. No evidence of pulmonary embolism, thoracic aortic dissection or aneurysm. 2. Multifocal infiltrates in the lungs most concerning for pneumonia. Findings are most marked in the right middle and right lower lobes. 3. There is a tree in bud appearance in the right lower lobe which can be seen with distal small airways disease. Pneumonia, bronchiolitis or neoplastic process should be considered. 4. More compliant opacity in the right upper lobe likely reflecting the patient's known lung carcinoma. RADIATION DOSE DELIVERED: 68.79mGy.cm Total DLP DATA REPOSITORY: All CT scans at this facility are submitted to the National Radiology Data Registry (NRDR) Dose Index Registry (DIR) with the [employer] (ACR). RADIATION OPTIMIZATION: All CT scans at this facility use at least one of these dose optimization techniques: automated exposure control; mA and/or kV adjustment per patient size (includes targeted exams where dose is matched to clinical indication); or iterative reconstruction.
[2025-06-18] MEDS: cefTRIAXone 1 GM/50 ML BAG IVPB (15:05)
[2025-06-18 15:18] LABS: COVID-19 PCR Negative (Negative); RSV PCR Negative (Negative)
[2025-06-18] MEDS: Normal Saline Flush 10 ML SYR IVP (15:22)
[2025-06-18] MEDS: Normal Saline - Diluent 50 ML VIAL IJ (15:22)
[2025-06-18] MEDS: Omnipaque 350 MG/ML 100 ML BTL IJ (15:23)
[2025-06-18 15:37] LABS: Troponin I 4 ng/L (<or=51)
[2025-06-18] MEDS: AZITHROMYCIN 500 MG in Normal Saline 250 ML 250 MG IVPB (16:11)
--- NOTE | 2025-06-18 19:01 | W.PC.ACHO ---
Registration Status: ADM IN Primary Language: Preferred Language: ED Information & Data Chief Complaint SOB 06/18/25 17:48 Chief Complaint SOB 06/18/25 14:02 Triage Note over a week of congestion, 06/18/25 13:50 cough, SOB, fever off and on Medical / Surgical History (Updated 06/18/25 @ 17:12 by Magaly Lang MD) COPD (chronic obstructive pulmonary disease) GERD (gastroesophageal reflux disease) Depression Chronic low back pain KATJA (obstructive sleep apnea) Primary cancer of right upper lobe of lung (Updated 04/25/24 @ 16:15 by Kaykay Wilkerson) H/O gastric bypass H/O cystoscopy S/P fine needle aspiration H/O colonoscopy H/O cervical spine surgery History of fundoplication H/O arthroscopy of shoulder H/O vaginal hysterectomy History of salpingectomy Most Recent Vital Signs Pulse 84 06/18/25 18:41 Pulse 85 06/18/25 18:16 Respiratory Rate 18 06/18/25 18:41 Respiratory Effort Short of Breath 06/18/25 17:48 Respiratory Depth Deep 06/18/25 17:48 Respiratory Pattern Normal 06/18/25 17:48 Blood Pressure 112/73 06/18/25 18:16 Blood Pressure Mean 85 06/18/25 18:16 Blood Pressure Position Supine 06/18/25 13:50 Pulse Oximetry 96 06/18/25 18:41 Oxygen Delivery Method Room Air 06/18/25 18:41 Oxygen Flow Rate 0 06/18/25 18:41 Allergies ketorolac (From Toradol) Allergy (Severe, Verified 01/23/25 15:09) Anaphylaxis Tongue swelling ibuprofen (From Motrin) Allergy (Intermediate, Verified 01/23/25 15:09) Itching Precautions Isolation Standard precaution 06/18/25 17:48 Active Medications Generic Name Dose Route Start Last Admin Trade Name Freq PRN Reason Stop Dose Admin Albuterol/Ipratropium 3 ml 06/18/25 18:00 06/18/25 18:41 Albuterol/Ipratropium 3 Ml Upd Vial UPD 3 ml Q6H EMEKA Administration Iohexol 100 ml 06/18/25 15:30 06/18/25 15:23 Omnipaque 350 Mg/Ml 100 Ml Btl IJ 07/18/25 23:59 70 ml DIRECTED EMEKA Administration Sodium Chloride 0 ml 06/18/25 15:21 06/18/25 15:22 Normal Saline Flush 10 Ml Syr IVP 10 ml PRN PRN Administration Sodium Chloride 50 ml 06/18/25 15:30 06/18/25 15:22 Normal Saline - Diluent 50 Ml Vial IJ 50 ml DIRECTED EMEKA Administration IV IV Catheter Type [Left Saline Lock Antecubital] IV Catheter Gauge [Left 18 Antecubital] Diet Orders Category Date Time Status Regular/Normal [DIET] Nutrition 06/19/25 Breakfast Ordered Diagnostics 06/18/25 06/18/25 06/18/25 Range/Units 16:52 15:02 14:25 WBC (4.4-10.8) 10^3/uL RBC (3.93-5.22) 10^6/uL Hgb (11.2-15.7) g/dL Hct (36.0-46.0) % MCV (80-95) fL MCH (27.0-33.0) pg MCHC (32.0-36.0) % RDW (11.7-14.6) % Plt Count (130-400) 10^3/uL MPV (8.0-11.0) fL Immature Gran % % Neutrophils % % Lymphocytes % % Monocytes % % Eosinophils % % Basophils % % Nucleated RBC % (0.0-0.3) % Absolute Neutrophils (1.2-6.7) 10^3/uL Absolute Lymphocytes (1.2-3.4) 10^3/uL Absolute Monocytes (0.1-0.8) 10^3/uL Absolute Eosinophils (0.0-0.7) 10^3/uL Absolute Basophils (0.0-0.2) 10^3/uL D-Dimer (<500) ng/mlFEU Sodium (136-145) mmol/L Potassium (3.5-5.1) mmol/L Chloride (98-107) mmol/L Carbon Dioxide (21.0-32.0) mmol/L Anion Gap (3-11) mmol/L BUN (7-18) mg/dL Creatinine (0.55-1.02) mg/dL Est GFR (CKD-EPI 2020) (mL/min/1.73m2) Glucose (74-106) mg/dL Calcium (8.5-10.1) mg/dL Magnesium (1.8-2.4) mg/dL Total Bilirubin (0.2-1.0) mg/dL AST (15-37) U/L ALT (14-59) U/L Alkaline Phosphatase (46-116) U/L Troponin I Cancelled 4 (<or=51) ng/L NT-Pro-B Natriuret Pep (<300) pg/mL Total Protein (6.4-8.2) g/dL Albumin (3.4-5.0) g/dL COVID-19 Source Nasopharynx SARS-CoV-2 (PCR) Negative (Negative) Influenza Type A (PCR) Negative (Negative) Influenza Type B (PCR) Negative (Negative) RSV (PCR) Negative (Negative) 06/18/25 Range/Units 14:00 WBC 11.67 H (4.4-10.8) 10^3/uL RBC 4.06 (3.93-5.22) 10^6/uL Hgb 11.8 (11.2-15.7) g/dL Hct 36.8 (36.0-46.0) % MCV 91 (80-95) fL MCH 29.1 (27.0-33.0) pg MCHC 32.1 (32.0-36.0) % RDW 13.4 (11.7-14.6) % Plt Count 519 H (130-400) 10^3/uL MPV 8.6 (8.0-11.0) fL Immature Gran % 0.3 % Neutrophils % 82.5 % Lymphocytes % 8.4 % Monocytes % 6.9 % Eosinophils % 1.5 % Basophils % 0.4 % Nucleated RBC % 0.0 (0.0-0.3) % Absolute Neutrophils 9.63 H (1.2-6.7) 10^3/uL Absolute Lymphocytes 0.98 L (1.2-3.4) 10^3/uL Absolute Monocytes 0.81 H (0.1-0.8) 10^3/uL Absolute Eosinophils 0.18 (0.0-0.7) 10^3/uL Absolute Basophils 0.05 (0.0-0.2) 10^3/uL D-Dimer 1240 H (<500) ng/mlFEU Sodium 143 (136-145) mmol/L Potassium 3.5 (3.5-5.1) mmol/L Chloride 107 (98-107) mmol/L Carbon Dioxide 26.4 (21.0-32.0) mmol/L Anion Gap 9.6 (3-11) mmol/L BUN 16 (7-18) mg/dL Creatinine 0.8 (0.55-1.02) mg/dL Est GFR (CKD-EPI 2020) 81.21 (mL/min/1.73m2) Glucose 163 H (74-106) mg/dL Calcium 8.9 (8.5-10.1) mg/dL Magnesium 2.1 (1.8-2.4) mg/dL Total Bilirubin 0.4 (0.2-1.0) mg/dL AST 8 L (15-37) U/L ALT 12 L (14-59) U/L Alkaline Phosphatase 101 (46-116) U/L Troponin I 4 (<or=51) ng/L NT-Pro-B Natriuret Pep 124 (<300) pg/mL Total Protein 7.8 (6.4-8.2) g/dL Albumin 3.1 L (3.4-5.0) g/dL COVID-19 Source SARS-CoV-2 (PCR) (Negative) Influenza Type A (PCR) (Negative) Influenza Type B (PCR) (Negative) RSV (PCR) (Negative) Intake and Output - 24 Hour Total 06/18/25 13:46 thru 06/18/25 17:11 Intake Total 310 Balance 310 Weight 65.7 kg Intake: IV 310 Falls Risk Assessment History of Falls No History 06/18/25 17:48 Fall Total Score 0 06/18/25 17:48 Level of Risk Standard/Low Risk 06/18/25 17:48 v v v v v v v v v Sending and/or Receiving Nurses: Please use comment section below to note any information pertinent to the patient hand-off not included above. Information / Comments: pt arrived to unit at 18:45. On RA. Report received from: Lisette PEREZ in ED @[id number]
--- NOTE | 2025-06-18 19:37 | W.PM.HP.N ---
Date of service: 06/18/25 Time of Service: 19:37 Assessment and Plan Assessment and plan (1) Pneumonia involving right lung: Status: Acute Assessment and plan: Likely community-acquired. Continue IV ceftriaxone and azithromycin. Monitor for clinical improvement (fever curve, WBC, O? needs). Encourage incentive spirometry and Acapella. Obtain sputum culture if productive cough persists. Transition to PO antibiotics once clinically stable. (2) Acute exacerbation of chronic obstructive pulmonary disease (COPD): Status: Acute Assessment and plan: Nebs O2 keep SPO2 >88% (3) Cigarette smoker: Status: Chronic Assessment and plan: Smokes 1/2 ppd per patients report Nicotine patch (4) History of lung cancer: Status: Acute Assessment and plan: Patient states she is in remission but has residual pain from radiation. (5) Insomnia: Status: Acute Assessment and plan: Continue home zolpidem (6) Degeneration of cervical intervertebral disc: Status: Acute Assessment and plan: Continue home vicodin (7) Chronic pain syndrome: Status: Chronic Assessment and plan: Continue home vicodin (8) Anxiety: Status: Chronic Assessment and plan: Lorazepam prn History of Present Illness Narrative: 64-year-old female with history of COPD, lung cancer in remission, GERD, depression, and chronic pain presents with shortness of breath and productive cough for several days. She feels as though she has ?pneumonia again.? Denies hemoptysis, fever, chest pain, nausea, or vomiting. Has been using home nebulizers without relief. No recent steroids or antibiotics. Denies leg swelling or pain. Does not use home oxygen. Patients reports she is trying to quit smoking and currently only smokes 1/2 ppd. In the ED: EKG: Sinus rhythm, no ischemia. Labs: WBC 11.6, normal CMP, troponin negative, BNP low, COVID/flu negative, D-dimer elevated. Imaging: CXR: Right middle lobe consolidation. CT PE protocol: No PE, confirms multilobar right-sided pneumonia. Patient received DuoNeb treatment and Solu-Medrol in ED with minimal improvement. On road test, remained tachypneic with increased work of breathing though maintaining SpO? on room air. Given her clinical status and multilobar pneumonia, decision made to admit for IV antibiotics and monitoring. Received first doses of ceftriaxone and azithromycin prior to admission. Patient is admitted to medicine, agrees with plan of care and is a full code. Review of Systems Narrative: Constitutional: No fever or chills. Respiratory: Productive cough, worsening shortness of breath. No hemoptysis. Cardiac: No chest pain, palpitations, or leg swelling. GI: No nausea, vomiting, or abdominal pain. Neuro: No dizziness, syncope, or focal weakness. All other systems: Reviewed and negative. PFSH All Active Problems Pneumonia involving right lung (Acute) Acute delirium (Acute) Anticholinesterase overdose (Acute) Left lower lobe pneumonia (Acute) Acute exacerbation of chronic obstructive pulmonary disease (COPD) (Acute) Edema of leg (Acute) Postcalcaneal bursitis (Acute) 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 08/18/24. I&D followed by antibiotics Pharyngeal dysphagia (Acute) Hypocalcemia (Acute) Splenic mass (Acute) Burn of lower limb (Acute) Posterior tibial tendon dysfunction (PTTD) of both lower extremities (Acute) Chronic use of opiate for therapeutic purpose (Chronic) Traumatic arthritis of right ankle (Acute) Posterior tibial tendonitis (Acute) Fibromyalgia (Acute) Steroid-induced hyperglycemia (Acute) Hypoxia (Acute) Other disorders of eyelid (Acute) Pyogenic granuloma of eyelid (Acute) Blurry vision, bilateral (Acute) Panlobular emphysema (Acute) Chronic fatigue (Acute) Hesitancy (Acute) Degeneration of lumbar or lumbosacral intervertebral disc (Acute) Complications due to internal orthopedic device, implant, and graft (Acute) Menopausal flushing (Acute) Varicose vein of leg (Acute) Patellar bursitis (Acute) Rosacea (Acute) IBS (irritable bowel syndrome) (Chronic) Lumbar radicular syndrome (Acute) Seasonal allergic rhinitis (Acute) Senile nuclear sclerosis (Acute) Cervical spondylosis (Chronic) Tear film insufficiency (Acute) Blepharitis of both eyes (Acute) Diplopia (Acute) Vitreous syneresis (Acute) Arthritis (Acute) Chronic pain syndrome (Chronic) Anxiety (Chronic) Fatty liver (Acute) Bronchitis (Acute) Degeneration of cervical intervertebral disc (Acute) Brachial neuritis (Acute) Neuralgia and neuritis (Acute) Lumbago (Acute) 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) Chronic knee pain (Acute) Hip pain (Acute) Narcolepsy (Acute) Insomnia (Acute) Restless legs syndrome (Acute) Asthma (Chronic) Migraine (Chronic) Impaired glucose tolerance (Acute) Cervicalgia (Acute) Obesity (BMI 30-39.9) (Acute) Chronic back pain (Acute) Major depressive disorder, recurrent (Acute) History of lung cancer (Acute) Cigarette smoker (Chronic) Medical History COPD (chronic obstructive pulmonary disease) GERD (gastroesophageal reflux disease) Depression Chronic low back pain KATJA (obstructive sleep apnea) Primary cancer of right upper lobe of lung Surgical History H/O gastric bypass H/O cystoscopy S/P fine needle aspiration H/O colonoscopy H/O cervical spine surgery History of fundoplication H/O arthroscopy of shoulder H/O vaginal hysterectomy History of salpingectomy Family History Sister No problems noted. Brother No problems noted. Mother No problems noted. Father No problems noted. Brother No problems noted. Social History Smoking/Tobacco Use Status: Current every day Tobacco Type: cigarettes Tobacco: How many years used: 48 Quit status: has quit before Second Hand Exposure: Yes Smoking risk assessment performed?: Yes Alcohol Intake: current Alcohol Intake frequency: holidays/special occasions only Drug use: Occasionally Substance use type: marijuana Adopted: No Caregiver/Support person: Yes Foster care: No Household members: caregiver Housing: apartment Number of Children: 2 number of grandchildren: 1 Communication Needs: None Education Level: high school Do you need help understanding health information?: Rarely current occupation: Retired Pets and animals: No Sexually active: Yes Do you think of yourself as: straight/heterosexual Current gender identity: female What is your relationship status?: living with partner How often do you talk on the phone with friends or family?: three or more times per week How often do you get together with friends or relatives?: three or more times per week How often do you attend confucianist or zoroastrian services?: 1-3 times per year Do you belong to any clubs or organized social groups?: no Panel score (0-1 are the most socially isolated patients): 2 What type of physical activity do you participate in: walking Duration: 15-30 minutes/day Frequency: 1-2 times per week Shreya/Congregation: [employer] Special shreya needs: No Seatbelt use: always Helmet use: Yes Drive intox or ride w/intox sprinkler driver: No Do you feel safe at home: Yes Do you feel safe in your relationship?: Yes Meds Allergies and Home Medications Allergies Allergy/AdvReac Type Severity Reaction Status Date / Time ketorolac (From Toradol) Allergy Severe Anaphylaxis Verified 01/23/25 15:09 ibuprofen (From Motrin) Allergy Intermediate Itching Verified 01/23/25 15:09 Home Medications ?Medication ?Instructions ?Recorded ?Confirmed ?Type blood sugar diagnostic (OneTouch 02/17/24 01/24/25 History Ultra Test strips) duloxetine 60 mg capsule,delayed 120 mg PO DAILY 02/17/24 06/18/25 History release lidocaine HCl 2 % mucosal solution 1 applic mucous membrane .q6 prn 02/17/24 06/18/25 History (Lidocaine Viscous) methylphenidate HCl 20 mg tablet 40 mg PO DAILY 02/17/24 06/18/25 History montelukast 10 mg tablet 10 mg PO DAILY Allergies 02/17/24 06/18/25 History omeprazole 40 mg capsule,delayed 40 mg PO DAILY 02/17/24 06/18/25 History release pregabalin 300 mg capsule 300 mg PO BID 02/17/24 06/18/25 History ropinirole 2 mg tablet 2 mg PO HS 02/17/24 06/18/25 History blood sugar diagnostic (OneTouch 05/03/24 01/24/25 History Ultra Test strips) buspirone 15 mg tablet 15 mg PO .COMPLEX 05/03/24 06/18/25 History hydrocodone 7.5 mg-acetaminophen 1 tab PO Q6H PRN pain 05/03/24 06/18/25 History 325 mg tablet lancets 05/03/24 01/24/25 History methocarbamol 500 mg tablet 1,000 mg PO HS 05/03/24 06/18/25 History ondansetron HCl 4 mg tablet 4 mg PO Q8H PRN nausea 05/03/24 06/18/25 History sumatriptan succinate 100 mg tablet 100 mg PO ONCE PRN migraine 05/03/24 06/18/25 History headache zolpidem 5 mg tablet 5 mg PO QHS 05/03/24 06/18/25 History fluticasone propionate 115 2 puff inhalation BID #12 grams 10/25/24 06/18/25 Rx mcg-salmeterol 21 mcg/actuation HFA inhaler (Advair HFA) methylphenidate HCl 10 mg tablet 10 mg PO DAILY 10/25/24 06/18/25 History benzonatate 200 mg capsule 200 mg PO TID PRN cough #90 caps 01/23/25 06/18/25 Rx azithromycin 250 mg tablet 250 mg PO DAILY COPD 03/30/25 06/18/25 History Exam Narrative Exam Narrative: General: Awake, alert, in moderate respiratory distress. HEENT: PERRL, EOMI, mucous membranes moist. Neck: Supple, no JVD or masses. Lungs: Tachypneic (RR >30), scattered crackles R > L, no wheezes or rhonchi. CV: Regular rate and rhythm, no murmurs. Peripheral pulses 2+ and symmetric. Abdomen: Soft, nontender, nondistended. MSK: No edema, normal ROM, no deformity. Neuro: Alert and oriented ?3, no focal deficit, tardive dyskinesia movements noted. Skin: Warm, dry, normal color. Psych: Cooperative, appropriate affect. Results Labs 06/18/25 14:00 06/18/25 14:00 Labs: Laboratory Results - last 24 hr 06/18/25 06/18/25 06/18/25 14:00 14:25 15:02 WBC 11.67 H RBC 4.06 Hgb 11.8 Hct 36.8 MCV 91 MCH 29.1 MCHC 32.1 RDW 13.4 Plt Count 519 H MPV 8.6 Immature Gran % 0.3 Neutrophils % 82.5 Lymphocytes % 8.4 Monocytes % 6.9 Eosinophils % 1.5 Basophils % 0.4 Nucleated RBC % 0.0 Absolute Neutrophils 9.63 H Absolute Lymphocytes 0.98 L Absolute Monocytes 0.81 H Absolute Eosinophils 0.18 Absolute Basophils 0.05 D-Dimer 1240 H Sodium 143 Potassium 3.5 Chloride 107 Carbon Dioxide 26.4 Anion Gap 9.6 BUN 16 Creatinine 0.8 Est GFR (CKD-EPI 2020) 81.21 Glucose 163 H Calcium 8.9 Magnesium 2.1 Total Bilirubin 0.4 AST 8 L ALT 12 L Alkaline Phosphatase 101 Troponin I 4 4 NT-Pro-B Natriuret Pep 124 Total Protein 7.8 Albumin 3.1 L COVID-19 Source Nasopharynx SARS-CoV-2 (PCR) Negative Influenza Type A (PCR) Negative Influenza Type B (PCR) Negative RSV (PCR) Negative 06/18/25 16:52 WBC RBC Hgb Hct MCV MCH MCHC RDW Plt Count MPV Immature Gran % Neutrophils % Lymphocytes % Monocytes % Eosinophils % Basophils % Nucleated RBC % Absolute Neutrophils Absolute Lymphocytes Absolute Monocytes Absolute Eosinophils Absolute Basophils D-Dimer Sodium Potassium Chloride Carbon Dioxide Anion Gap BUN Creatinine Est GFR (CKD-EPI 2020) Glucose Calcium Magnesium Total Bilirubin AST ALT Alkaline Phosphatase Troponin I Cancelled NT-Pro-B Natriuret Pep Total Protein Albumin COVID-19 Source SARS-CoV-2 (PCR) Influenza Type A (PCR) Influenza Type B (PCR) RSV (PCR) Last Vital Signs Pulse 84 06/18/25 18:41 Resp 18 06/18/25 18:41 BP 112/73 06/18/25 18:16 Pulse Ox 96 06/18/25 18:41 Time Spent Time spent with Patient: 40-54 minutes Time was spent: preparing to see the patient(eg.review tests), obtaining and/or reviewing separately otained hiistory, ordering medications,tests, procedures, referring, communicating with other health director of home care hospice, indepentently interpreting results, counseling the patient and care coordination
[2025-06-18] MEDS: Albuterol 2.5 MG/3 ML INH SOLN VIAL UPD (20:17)
[2025-06-18] MEDS: Methocarbamol 500 MG TAB 1000 MG PO (21:12)
[2025-06-18] MEDS: Pregabalin 150 MG CAP 300 MG PO (21:12)
[2025-06-18] MEDS: Zolpidem 5 MG TAB PO (21:13)
[2025-06-18] MEDS: rOPINIRole 1 MG TAB 2 MG PO (21:13)
[2025-06-18] MEDS: guaiFENesin 600 MG TABCR PO (21:13)
[2025-06-18] MEDS: Nicotine 21 MG/24 HR PATCH TD (21:14)
[2025-06-19] VITALS (9 sets, daily range): BP systolic 110–132; BP diastolic 68–78; PULSE 73–100; RESP 17–24; TEMP 36–37.1; O2SAT 95–97
[2025-06-19] MEDS: Albuterol/Ipratropium 3 ML UPD VIAL UPD ×4 (00:59→19:34)
[2025-06-19] MEDS: Lidocaine 2% Viscous 15 ML CUP 5 ML MM (01:33)
[2025-06-19] MEDS: Benzonatate 200 MG CAP PO ×2 (01:33→14:48)
[2025-06-19] MEDS: LORazepam 0.5 MG TAB PO ×2 (01:33→11:57)
[2025-06-19] MEDS: guaiFENesin/D-METHORPHAN HB 5 ML CUP 10 ML PO ×2 (04:48→14:49)
[2025-06-19 06:57] LABS: Abs Immature Grans 0.05 10^3/uL (0.0-0.06); HCT 33.4 % (36.0-46.0); HGB 10.6 g/dL (11.2-15.7); Immature Grans % 0.6 %; MCH 29.1 pg (27.0-33.0); MCHC 31.7 % (32.0-36.0); MCV 92 fL (80-95); MPV 9.3 fL (8.0-11.0); Platelet Count 474 10^3/uL (130-400); RBC 3.64 10^6/uL (3.93-5.22); RDW 13.4 % (11.7-14.6); RDW-SD 45.8 fL; WBC 8.10 10^3/uL (4.4-10.8)
[2025-06-19 07:22] LABS: Anion Gap 9.9 mmol/L (3-11); BUN 17 mg/dL (7-18); CO2 26.1 mmol/L (21.0-32.0); Calcium 8.1 mg/dL (8.5-10.1); Chloride 108 mmol/L (98-107); Estimated GFR 81.21 (mL/min/1.73m2); Glucose 226 mg/dL (74-106); Magnesium 2.3 mg/dL (1.8-2.4); Potassium 4.0 mmol/L (3.5-5.1); Sodium 144 mmol/L (136-145)
[2025-06-19] MEDS: Omeprazole 20 MG CAPCR 40 MG PO (07:55)
[2025-06-19] MEDS: Pregabalin 150 MG CAP 300 MG PO ×2 (07:55→20:36)
[2025-06-19] MEDS: Methylphenidate 10 MG TAB 40 MG PO (07:55)
[2025-06-19] MEDS: DULoxetine 30 MG CAP 120 MG PO (07:55)
[2025-06-19] MEDS: Azithromycin 250 MG TAB 500 MG PO (07:56)
[2025-06-19] MEDS: Montelukast 10 MG TAB PO (07:56)
[2025-06-19] MEDS: predniSONE 20 MG TAB 40 MG PO (07:56)
[2025-06-19] MEDS: guaiFENesin 600 MG TABCR PO ×2 (07:56→20:36)
[2025-06-19] MEDS: Enoxaparin 40 MG/0.4 ML SYR SC (07:56)
[2025-06-19] MEDS: Normal Saline Flush 10 ML SYR IVP ×2 (07:58→20:35)
[2025-06-19] MEDS: Nicotine 21 MG/24 HR PATCH TD (07:58)
--- NOTE | 2025-06-19 08:09 | INITIAL_ITS ---
Date of service: 06/19/25 Time of Service: 08:09 Care Management Initial Assmt Initial Assessment Reason for Hospitalization: pneumonia, COPD exacerbation Functional Status/Living Situation Patient Presentation: Liset presented tot he ED yesterday afternoon with shortness of breath. Liset does have a history of lung CA that is in remission. She stated yesterday that she had a productive cough and increased work of breathing. Her nebulizer did not really help. Liset was sitting up in the bed when CM met with her today. She was quite talkative with CM today, as she remembered me from a previous admission. Liset stated that she was really struggling to breath yesterday, coughing almost non- stop. She monitors her O2 sat at home, and stated that it never really went down, but she couldn't catch her breath so came in. While talking with CM, she was noted to have to take short pauses to catch her breath. She is not ready for discharge today. Liset has a paid caregiver through [employer], her SO Efren Bateman. Liset stated that she has been living with Will at his place for years. He is her paid Lm caregiver through [employer]. Liset told CM that Robert has been smoking crack in the apartment, even in the bed right next to her, and that he is the reason that cocaine has been showing up in her urines. She denied any of her own use. She went to [facility] yesterday. She stated that someone from [facility] would be coming to see her today, and that they will set her up with temporary housing should she choose to not go home with Will. If Liset is not living with Will, she will need rides to her medical appointments. CM discussed RCT and Medicaid medical rides. Liset was given the # and encouraged her to call at least 72 business hours before needing a ride, and the sooner the better. Liset is not interested in trying to get in to a nursing facility fdc at this point, and she does not have a skilled need for SNF. Town of Residence: [facility] Resides with: Other (significant other , Efren Bateman. He is also Liset's paid caregiver through [employer]) Significant Other/Family: Out of area (daughter, Yadira Tanner, lives [place] in [place], son in [facility]) Caregiver/Guardian: Efren is Liset's paid caregiver through [employer] Employment Status: Retired Instrumental Activities of Daily Living (ADLs): Requires support with Dishes/food prep, Groceries, Laundry and Transportation Medications Medication Management: No Issues/Barriers identified Advance Directives Advance Directives: Do you have an Advance Directive: N , 11:02 AD On File at [facility]: N 02/17/24, 08:39 Date Asked 06/18/25 06/18/25, 13:50 AD Date Reviewed COLST On File at [facility] No 03/30/25, 15:07 COLST Date Scanned Code Status Resuscitation Status Full Code Portal Pt does not currently have a portal and education provided: No Portal Education: Other (portal member) Insurance Coverage/Financial Issues Insurance: AARP/.[facility] Replacement Medicaid [facility] for [facility] Financial Issues: Stated that Robert has not been paying the bills due to his bad habits Care Team Visit Care Team Role Provider Type Shell Lubin NP MD [facility] STAFF PHYSICIAN Unknown Unknown Primary Care Provider STAFF PHYSICIAN Magaly Lang MD Emergency Provider [facility] STAFF PHYSICIAN Gary Ayers MD Admit Provider [facility] STAFF PHYSICIAN Attending Provider Discharge Potential Discharge Needs: PCP F/U Appt Anticipated Barriers to Discharge: None Identified Patient/Family Education Needs: Review discharge instructions, discuss Ask Me Three Transportation: Private vehicle Plan: Anticipate that Liset will be discharged home once medically cleared. She will f/u with her PCP and pulmonolgy and continue per her plan of care. She will transport home in a private vehicle with Will, or with [facility]. CM will continue to follow and to update the plan as needed. Social Determinants of Health Screening Will the Patient Participate in the Screening?: Unable to obtain [facility] All Active Problems Pneumonia involving right lung (Acute) Acute delirium (Acute) Anticholinesterase overdose (Acute) Left lower lobe pneumonia (Acute) Acute exacerbation of chronic obstructive pulmonary disease (COPD) (Acute) Edema of leg (Acute) Postcalcaneal bursitis (Acute) 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 08/18/24. I&D followed by antibiotics Pharyngeal dysphagia (Acute) Hypocalcemia (Acute) Splenic mass (Acute) Burn of lower limb (Acute) Posterior tibial tendon dysfunction (PTTD) of both lower extremities (Acute) Chronic use of opiate for therapeutic purpose (Chronic) Traumatic arthritis of right ankle (Acute) Posterior tibial tendonitis (Acute) Fibromyalgia (Acute) Steroid-induced hyperglycemia (Acute) Hypoxia (Acute) Other disorders of eyelid (Acute) Pyogenic granuloma of eyelid (Acute) Blurry vision, bilateral (Acute) Panlobular emphysema (Acute) Chronic fatigue (Acute) Hesitancy (Acute) Degeneration of lumbar or lumbosacral intervertebral disc (Acute) Complications due to internal orthopedic device, implant, and graft (Acute) Menopausal flushing (Acute) Varicose vein of leg (Acute) Patellar bursitis (Acute) Rosacea (Acute) IBS (irritable bowel syndrome) (Chronic) Lumbar radicular syndrome (Acute) Seasonal allergic rhinitis (Acute) Senile nuclear sclerosis (Acute) Cervical spondylosis (Chronic) Tear film insufficiency (Acute) Blepharitis of both eyes (Acute) Diplopia (Acute) Vitreous syneresis (Acute) Arthritis (Acute) Chronic pain syndrome (Chronic) Anxiety (Chronic) Fatty liver (Acute) Bronchitis (Acute) Degeneration of cervical intervertebral disc (Acute) Brachial neuritis (Acute) Neuralgia and neuritis (Acute) Lumbago (Acute) 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) Chronic knee pain (Acute) Hip pain (Acute) Narcolepsy (Acute) Insomnia (Acute) Restless legs syndrome (Acute) Asthma (Chronic) Migraine (Chronic) Impaired glucose tolerance (Acute) Cervicalgia (Acute) Obesity (BMI 30-39.9) (Acute) Chronic back pain (Acute) Major depressive disorder, recurrent (Acute) History of lung cancer (Acute) Cigarette smoker (Chronic) Medical History COPD (chronic obstructive pulmonary disease) GERD (gastroesophageal reflux disease) Depression Chronic low back pain KATJA (obstructive sleep apnea) Primary cancer of right upper lobe of lung Surgical History H/O gastric bypass H/O cystoscopy S/P fine needle aspiration H/O colonoscopy H/O cervical spine surgery History of fundoplication H/O arthroscopy of shoulder H/O vaginal hysterectomy History of salpingectomy Family History Sister No problems noted. Brother No problems noted. Mother No problems noted. Father No problems noted. Brother No problems noted. Social History Smoking/Tobacco Use Status: Current every day Tobacco Type: cigarettes Tobacco: How many years used: 48 Quit status: has quit before Second Hand Exposure: Yes Smoking risk assessment performed?: Yes Alcohol Intake: current Alcohol Intake frequency: holidays/special occasions only Drug use: Occasionally Substance use type: marijuana Adopted: No Caregiver/Support person: Yes Foster care: No Household members: caregiver Housing: apartment Number of Children: 2 number of grandchildren: 1 Communication Needs: None Education Level: high school Do you need help understanding health information?: Rarely current occupation: Retired Pets and animals: No Sexually active: Yes Do you think of yourself as: straight/heterosexual Current gender identity: female What is your relationship status?: living with partner How often do you talk on the phone with friends or family?: three or more times per week How often do you get together with friends or relatives?: three or more times per week How often do you attend scientologist or sikhism services?: 1-3 times per year Do you belong to any clubs or organized social groups?: no Panel score (0-1 are the most socially isolated patients): 2 What type of physical activity do you participate in: walking Duration: 15-30 minutes/day Frequency: 1-2 times per week Shreya/Hinduism: Muslim Special shreya needs: No Seatbelt use: always Helmet use: Yes Drive intox or ride w/intox truss driver helper: No Do you feel safe at home: Yes Do you feel safe in your relationship?: Yes
[2025-06-19] MEDS: Budesonide/Formoterol 160/4.5 6 GM 60 PUFF INH IH ×2 (08:28→19:35)
--- NOTE | 2025-06-19 08:40 | PDOC.CMIN ---
Date of service: 06/19/25 Time of Service: 08:40 Care Management Initial Assmt Advance Directives Advance Directives: Do you have an Advance Directive: N 02/17/24, 11:02 AD On File at [facility]: N 02/17/24, 08:39 Date Asked 06/18/25 06/18/25, 13:50 AD Date Reviewed COLST On File at [facility] No 03/30/25, 15:07 COLST Date Scanned Code Status Resuscitation Status Full Code Care Team Visit Care Team Role Provider Type Shell Lubin NP MD [facility] STAFF PHYSICIAN Unknown Unknown Primary Care Provider STAFF PHYSICIAN Magaly Lang MD Emergency Provider [facility] STAFF PHYSICIAN Gary Ayers MD Admit Provider [facility] STAFF PHYSICIAN Attending Provider Social Determinants of Health Screening Will the Patient Participate in the Screening?: Unable to obtain PFSH All Active Problems Pneumonia involving right lung (Acute) Acute delirium (Acute) Anticholinesterase overdose (Acute) Left lower lobe pneumonia (Acute) Acute exacerbation of chronic obstructive pulmonary disease (COPD) (Acute) Edema of leg (Acute) Postcalcaneal bursitis (Acute) 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 08/18/24. I&D followed by antibiotics Pharyngeal dysphagia (Acute) Hypocalcemia (Acute) Splenic mass (Acute) Burn of lower limb (Acute) Posterior tibial tendon dysfunction (PTTD) of both lower extremities (Acute) Chronic use of opiate for therapeutic purpose (Chronic) Traumatic arthritis of right ankle (Acute) Posterior tibial tendonitis (Acute) Fibromyalgia (Acute) Steroid-induced hyperglycemia (Acute) Hypoxia (Acute) Other disorders of eyelid (Acute) Pyogenic granuloma of eyelid (Acute) Blurry vision, bilateral (Acute) Panlobular emphysema (Acute) Chronic fatigue (Acute) Hesitancy (Acute) Degeneration of lumbar or lumbosacral intervertebral disc (Acute) Complications due to internal orthopedic device, implant, and graft (Acute) Menopausal flushing (Acute) Varicose vein of leg (Acute) Patellar bursitis (Acute) Rosacea (Acute) IBS (irritable bowel syndrome) (Chronic) Lumbar radicular syndrome (Acute) Seasonal allergic rhinitis (Acute) Senile nuclear sclerosis (Acute) Cervical spondylosis (Chronic) Tear film insufficiency (Acute) Blepharitis of both eyes (Acute) Diplopia (Acute) Vitreous syneresis (Acute) Arthritis (Acute) Chronic pain syndrome (Chronic) Anxiety (Chronic) Fatty liver (Acute) Bronchitis (Acute) Degeneration of cervical intervertebral disc (Acute) Brachial neuritis (Acute) Neuralgia and neuritis (Acute) Lumbago (Acute) 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) Chronic knee pain (Acute) Hip pain (Acute) Narcolepsy (Acute) Insomnia (Acute) Restless legs syndrome (Acute) Asthma (Chronic) Migraine (Chronic) Impaired glucose tolerance (Acute) Cervicalgia (Acute) Obesity (BMI 30-39.9) (Acute) Chronic back pain (Acute) Major depressive disorder, recurrent (Acute) History of lung cancer (Acute) Cigarette smoker (Chronic) Medical History COPD (chronic obstructive pulmonary disease) GERD (gastroesophageal reflux disease) Depression Chronic low back pain KATJA (obstructive sleep apnea) Primary cancer of right upper lobe of lung Surgical History H/O gastric bypass H/O cystoscopy S/P fine needle aspiration H/O colonoscopy H/O cervical spine surgery History of fundoplication H/O arthroscopy of shoulder H/O vaginal hysterectomy History of salpingectomy Family History Sister No problems noted. Brother No problems noted. Mother No problems noted. Father No problems noted. Brother No problems noted. Social History Smoking/Tobacco Use Status: Current every day Tobacco Type: cigarettes Tobacco: How many years used: 48 Quit status: has quit before Second Hand Exposure: Yes Smoking risk assessment performed?: Yes Alcohol Intake: current Alcohol Intake frequency: holidays/special occasions only Drug use: Occasionally Substance use type: marijuana Adopted: No Caregiver/Support person: Yes Foster care: No Household members: caregiver Housing: apartment Number of Children: 2 number of grandchildren: 1 Communication Needs: None Education Level: high school Do you need help understanding health information?: Rarely current occupation: Retired Pets and animals: No Sexually active: Yes Do you think of yourself as: straight/heterosexual Current gender identity: female What is your relationship status?: living with partner How often do you talk on the phone with friends or family?: three or more times per week How often do you get together with friends or relatives?: three or more times per week How often do you attend judaism or jewish services?: 1-3 times per year Do you belong to any clubs or organized social groups?: no Panel score (0-1 are the most socially isolated patients): 2 What type of physical activity do you participate in: walking Duration: 15-30 minutes/day Frequency: 1-2 times per week Shreya/Presybeterian: Lutheran Special shreya needs: No Seatbelt use: always Helmet use: Yes Drive intox or ride w/intox medical van driver: No Do you feel safe at home: Yes Do you feel safe in your relationship?: Yes
[2025-06-19 10:11] LABS: Lab Add On Test DONE
[2025-06-19 10:25] LABS: Hemoglobin A1C 6.2 % (<5.7)
[2025-06-19] MEDS: Methylphenidate 10 MG TAB PO (12:37)
--- NOTE | 2025-06-19 13:45 | CHAPLAIN ---
I had a brief visit with Liset. I explained my role and offered support. She didn't seem interested in further conversation, but then told me to stop in any time as I was leaving. Liset's lung cancer is in remission and she is being treated for pneumonia.
[2025-06-19] MEDS: cefTRIAXone 1 GM/50 ML BAG IVPB (14:50)
--- NOTE | 2025-06-19 15:30 | W.PM.PROGNOT ---
Date of Service Date of service: 06/19/25 Time of Service: 15:30 Assessment and Plan Assessment and plan (1) Pneumonia involving right lung: Status: Acute Assessment and plan: Likely community-acquired. Smokes cigarettes and crack cocaine. Continue IV ceftriaxone and azithromycin. Monitor for clinical improvement (fever curve, WBC, O2 needs). Encourage incentive spirometry and Acapella. Obtain sputum culture if productive cough persists. Transition to PO antibiotics once clinically stable. (2) Crack cocaine use: Status: Acute Assessment and plan: Chronic Patient demonstrates choreoathetoid movements consistent with stimulant-induced dyskinesia, likely secondary to admitted recent cocaine use (3) Acute exacerbation of chronic obstructive pulmonary disease (COPD): Status: Acute Assessment and plan: Nebs O2 keep SPO2 >88% (4) Cigarette smoker: Status: Chronic Assessment and plan: Smokes 1/2 ppd per patients report Nicotine patch (5) History of lung cancer: Status: Acute Assessment and plan: Patient states she is in remission but has residual pain from radiation. (6) Insomnia: Status: Acute Assessment and plan: Continue home zolpidem (7) Degeneration of cervical intervertebral disc: Status: Acute Assessment and plan: Continue home vicodin (8) Chronic pain syndrome: Status: Chronic Assessment and plan: Continue home vicodin (9) Anxiety: Status: Chronic Assessment and plan: Lorazepam prn Exam Narrative Exam Narrative: General: Awake, alert, in moderate respiratory distress. HEENT: PERRL, EOMI, mucous membranes moist. Neck: Supple, no JVD or masses. Lungs: Tachypneic (RR >30), scattered crackles R > L, no wheezes or rhonchi. CV: Regular rate and rhythm, no murmurs. Peripheral pulses 2+ and symmetric. Abdomen: Soft, nontender, nondistended. MSK: No edema, normal ROM, no deformity. Neuro: Alert and oriented ?3, no focal deficit, tardive dyskinesia movements noted. Skin: Warm, dry, normal color. Psych: Cooperative, appropriate affect. Objective Last Vital Signs Temp 36.2 C L 06/19/25 15:10 Pulse 100 H 06/19/25 15:10 Resp 20 06/19/25 15:10 BP 110/68 06/19/25 15:10 Pulse Ox 96 06/19/25 15:10 Laboratory Results - last 24 hr 06/18/25 06/18/25 06/19/25 15:02 16:52 05:36 WBC 8.10 RBC 3.64 L Hgb 10.6 L Hct 33.4 L MCV 92 MCH 29.1 MCHC 31.7 L RDW 13.4 Plt Count 474 H MPV 9.3 Immature Gran % 0.6 Neutrophils % 76.4 Lymphocytes % 14.7 Monocytes % 7.7 Eosinophils % 0.4 Basophils % 0.2 Nucleated RBC % 0.0 Absolute Neutrophils 6.19 Absolute Lymphocytes 1.19 L Absolute Monocytes 0.62 Absolute Eosinophils 0.03 Absolute Basophils 0.02 Sodium 144 Potassium 4.0 Chloride 108 H Carbon Dioxide 26.1 Anion Gap 9.9 BUN 17 Creatinine 0.8 Est GFR (CKD-EPI 2020) 81.21 Glucose 226 H Hemoglobin A1c 6.2 H Calcium 8.1 L Magnesium 2.3 Troponin I 4 Cancelled Add-On Test Request 06/19/25 10:10 WBC RBC Hgb Hct MCV MCH MCHC RDW Plt Count MPV Immature Gran % Neutrophils % Lymphocytes % Monocytes % Eosinophils % Basophils % Nucleated RBC % Absolute Neutrophils Absolute Lymphocytes Absolute Monocytes Absolute Eosinophils Absolute Basophils Sodium Potassium Chloride Carbon Dioxide Anion Gap BUN Creatinine Est GFR (CKD-EPI 2020) Glucose Hemoglobin A1c Calcium Magnesium Troponin I Add-On Test Request DONE Time Spent with Patient Time Spent with Patient: 35-49 minutes Time was spent: preparing to see the patient(eg.review tests), ordering medications,tests, procedures, referring, communicating with other health pharmacy customer care specialist, indepentently interpreting results, counseling the patient and care coordination
[2025-06-19 18:31] LABS: Glucose 500 mg/dL (Negative)
[2025-06-19 18:46] LABS: Cannabinoids THC Negative (Negative); METHADONE URINE SCREEN Negative (Negative)
[2025-06-19] MEDS: Methocarbamol 500 MG TAB 1000 MG PO (20:36)
[2025-06-19] MEDS: rOPINIRole 1 MG TAB 2 MG PO (20:36)
[2025-06-19 21:02] LABS: Legionella Ag Detection Urine Negative (Negative)
[2025-06-20] VITALS (11 sets, daily range): BP systolic 105–131; BP diastolic 61–86; PULSE 65–100; RESP 14–20; TEMP 36.1–36.7; O2SAT 94–96
[2025-06-20] MEDS: Albuterol/Ipratropium 3 ML UPD VIAL UPD ×4 (00:24→17:45)
[2025-06-20 06:22] LABS: Abs Immature Grans 0.08 10^3/uL (0.0-0.06); HCT 33.2 % (36.0-46.0); HGB 10.3 g/dL (11.2-15.7); Immature Grans % 0.8 %; MCH 28.9 pg (27.0-33.0); MCHC 31.0 % (32.0-36.0); MCV 93 fL (80-95); MPV 8.9 fL (8.0-11.0); Platelet Count 467 10^3/uL (130-400); RBC 3.57 10^6/uL (3.93-5.22); RDW 13.5 % (11.7-14.6); RDW-SD 45.6 fL; WBC 10.06 10^3/uL (4.4-10.8)
[2025-06-20 06:35] LABS: Anion Gap 8.8 mmol/L (3-11); BUN 16 mg/dL (7-18); CO2 26.2 mmol/L (21.0-32.0); Calcium 8.0 mg/dL (8.5-10.1); Chloride 107 mmol/L (98-107); Estimated GFR 98.93 (mL/min/1.73m2); Glucose 291 mg/dL (74-106); Magnesium 2.2 mg/dL (1.8-2.4); Potassium 3.8 mmol/L (3.5-5.1); Sodium 142 mmol/L (136-145)
[2025-06-20] MEDS: Budesonide/Formoterol 160/4.5 6 GM 60 PUFF INH IH ×2 (07:49→20:13)
[2025-06-20] MEDS: DULoxetine 30 MG CAP 120 MG PO (08:07)
[2025-06-20] MEDS: Pregabalin 150 MG CAP 300 MG PO ×2 (08:07→20:42)
[2025-06-20] MEDS: Omeprazole 20 MG CAPCR 40 MG PO (08:08)
[2025-06-20] MEDS: predniSONE 20 MG TAB 40 MG PO (08:08)
[2025-06-20] MEDS: guaiFENesin 600 MG TABCR PO ×2 (08:08→20:41)
[2025-06-20] MEDS: Montelukast 10 MG TAB PO (08:09)
[2025-06-20] MEDS: Azithromycin 250 MG TAB 500 MG PO (08:09)
[2025-06-20] MEDS: Nicotine 21 MG/24 HR PATCH TD (08:09)
[2025-06-20] MEDS: Methylphenidate 10 MG TAB 40 MG PO (08:09)
[2025-06-20] MEDS: Benzonatate 200 MG CAP PO (08:11)
[2025-06-20] MEDS: Enoxaparin 40 MG/0.4 ML SYR SC (08:12)
[2025-06-20] MEDS: Normal Saline Flush 10 ML SYR IVP ×4 (08:12→20:42)
--- NOTE | 2025-06-20 08:39 | W.PULMCON ---
General Date Of Service Date of service: 06/20/25 Time of Service: 08: Requesting physician: Shell Lubin Reason for Consult: COPD, pneumonia, lung cancer Recommendations: Assessment: 1. Community acquired pneumonia 2. COPD exacerbation 3. Hx NSCLC - s/p radiation therapy 4. Substance abuse - UDS positive for opiates and cocaine 5. Tobacco abuse Recommendations: - continue ceftriaxone. Change azithromycin to doxycycline, given she was on chronic azithromycin. Plan for 7 days of antibiotics. Can transition to PO cefpodoxime and azithromycin - continue prednisone 40 mg daily for 7 days - will need repeat CT chest in 2-3 months to re-evaluate her pulmonary infiltrates - discussed the dangers of ongoing tobacco use. Discussed cessation aids - resume home inhalers upon discharge - ambulate today. If she does well, may be ready for discharge later today - will arrange for inpatient follow up in pulm clinic in 1-2 weeks Discussed with hospitalist team History of Present Illness Narrative: Patient is a 64 yo with a history of NCSLC, COPD, and tobacco abuse, who was admitted on 06/18 for pneumonia and COPD exacerbation. She reports feeling ill for 2-3 weeks prior to admission. Had subjective fevers, cough, and worsening dyspnea. Denied any hemoptysis. CT chest showed new RLL and RML infiltrates. RUL fibrotic changes were present and more confluent compared to prior CT in 02/2024. She follows with oncology and radiation oncology at [facility]. She has missed appointments with them and with pulm clinic over the past year. She is currently using advair 115 BID, incruse, and PRN albuterol for COPD management. Was also taking chronic azithromycin. Her dyspnea and cough have improved. Currently on room air. ROS: 10 pt ROS negative except as above PFSH All Active Problems Crack cocaine use (Acute) Pneumonia involving right lung (Acute) Acute delirium (Acute) Anticholinesterase overdose (Acute) Left lower lobe pneumonia (Acute) Acute exacerbation of chronic obstructive pulmonary disease (COPD) (Acute) Edema of leg (Acute) Postcalcaneal bursitis (Acute) 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 08/18/24. I&D followed by antibiotics Pharyngeal dysphagia (Acute) Hypocalcemia (Acute) Splenic mass (Acute) Burn of lower limb (Acute) Posterior tibial tendon dysfunction (PTTD) of both lower extremities (Acute) Chronic use of opiate for therapeutic purpose (Chronic) Traumatic arthritis of right ankle (Acute) Posterior tibial tendonitis (Acute) Fibromyalgia (Acute) Steroid-induced hyperglycemia (Acute) Hypoxia (Acute) Other disorders of eyelid (Acute) Pyogenic granuloma of eyelid (Acute) Blurry vision, bilateral (Acute) Panlobular emphysema (Acute) Chronic fatigue (Acute) Hesitancy (Acute) Degeneration of lumbar or lumbosacral intervertebral disc (Acute) Complications due to internal orthopedic device, implant, and graft (Acute) Menopausal flushing (Acute) Varicose vein of leg (Acute) Patellar bursitis (Acute) Rosacea (Acute) IBS (irritable bowel syndrome) (Chronic) Lumbar radicular syndrome (Acute) Seasonal allergic rhinitis (Acute) Senile nuclear sclerosis (Acute) Cervical spondylosis (Chronic) Tear film insufficiency (Acute) Blepharitis of both eyes (Acute) Diplopia (Acute) Vitreous syneresis (Acute) Arthritis (Acute) Chronic pain syndrome (Chronic) Anxiety (Chronic) Fatty liver (Acute) Bronchitis (Acute) Degeneration of cervical intervertebral disc (Acute) Brachial neuritis (Acute) Neuralgia and neuritis (Acute) Lumbago (Acute) 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) Chronic knee pain (Acute) Hip pain (Acute) Narcolepsy (Acute) Insomnia (Acute) Restless legs syndrome (Acute) Asthma (Chronic) Migraine (Chronic) Impaired glucose tolerance (Acute) Cervicalgia (Acute) Obesity (BMI 30-39.9) (Acute) Chronic back pain (Acute) Major depressive disorder, recurrent (Acute) History of lung cancer (Acute) Cigarette smoker (Chronic) Medical History COPD (chronic obstructive pulmonary disease) GERD (gastroesophageal reflux disease) Depression Chronic low back pain KATJA (obstructive sleep apnea) Primary cancer of right upper lobe of lung Surgical History H/O gastric bypass H/O cystoscopy S/P fine needle aspiration H/O colonoscopy H/O cervical spine surgery History of fundoplication H/O arthroscopy of shoulder H/O vaginal hysterectomy History of salpingectomy Family History Sister No problems noted. Brother No problems noted. Mother No problems noted. Father No problems noted. Brother No problems noted. Social History Smoking/Tobacco Use Status: Current every day Tobacco Type: cigarettes Tobacco: How many years used: 48 Quit status: has quit before Second Hand Exposure: Yes Smoking risk assessment performed?: Yes Alcohol Intake: current Alcohol Intake frequency: holidays/special occasions only Drug use: Occasionally Substance use type: marijuana Adopted: No Caregiver/Support person: Yes Foster care: No Household members: caregiver Housing: apartment Number of Children: 2 number of grandchildren: 1 Communication Needs: None Education Level: high school Do you need help understanding health information?: Rarely current occupation: Retired Pets and animals: No Sexually active: Yes Do you think of yourself as: straight/heterosexual Current gender identity: female What is your relationship status?: living with partner How often do you talk on the phone with friends or family?: three or more times per week How often do you get together with friends or relatives?: three or more times per week How often do you attend alevism or oriental orthodox services?: 1-3 times per year Do you belong to any clubs or organized social groups?: no Panel score (0-1 are the most socially isolated patients): 2 What type of physical activity do you participate in: walking Duration: 15-30 minutes/day Frequency: 1-2 times per week Shreya/Baptist: Adventism Special shreya needs: No Seatbelt use: always Helmet use: Yes Drive intox or ride w/intox class c truck driver: No Do you feel safe at home: Yes Do you feel safe in your relationship?: Yes Visit Medication and Allergies Active Medications Generic Name Dose Route Start Last Admin Trade Name Freq PRN Reason Stop Dose Admin Acetaminophen 650 mg 06/18/25 17:35 Acetaminophen 325 Mg Tab PO Q4H PRN PRN Hydrocodone Bitart/Acetaminophen 1 tab 06/19/25 16:22 06/20/25 08:11 Hydrocodone 7.5/Acetaminophen 325 Tab PO 1 tab Q6H PRN PRN Administration Pain Albuterol Sulfate 2.5 mg 06/18/25 17:35 06/18/25 20:17 Albuterol 2.5 Mg/3 Ml Inh Soln Vial UPD 2.5 mg Q2H PRN PRN Administration Albuterol/Ipratropium 3 ml 06/18/25 18:00 06/20/25 05:57 Albuterol/Ipratropium 3 Ml Upd Vial UPD 3 ml Q6H EMEKA Administration Azithromycin 500 mg 06/19/25 08:30 06/20/25 08:09 Azithromycin 250 Mg Tab PO 500 mg DAILY EMEKA Administration Bacteriostatic Water 0 ml 06/18/25 13:51 Water,Injection,Bacteriostatic 30 Ml Vial IJ DIRECTED PRN Benzonatate 200 mg 06/18/25 19:44 06/20/25 08:11 Benzonatate 200 Mg Cap PO 200 mg TID PRN Administration Cough Budesonide/Formoterol Fumarate 2 puff 06/19/25 08:30 06/20/25 07:49 Budesonide/Formoterol 160/4.5 6 Gm 60 Puff Inh IH 2 puffs BID EMEKA Administration Buspirone HCl 15 mg 06/18/25 19:44 Buspirone 15 Mg Tab PO .COMPLEX EMEKA Duloxetine HCl 120 mg 06/19/25 08:30 06/20/25 08:07 Duloxetine 30 Mg Cap PO 120 mg DAILY EMEKA Administration Enoxaparin Sodium 40 mg 06/19/25 08:30 06/20/25 08:12 Enoxaparin 40 Mg/0.4 Ml Syr SC 40 mg DAILY EMEKA Administration Guaifenesin 600 mg 06/18/25 20:00 06/20/25 08:08 Guaifenesin 600 Mg Tabcr PO 600 mg BID EMEKA Administration Guaifenesin/Dextromethorphan 10 ml 06/19/25 02:36 06/19/25 14:49 Guaifenesin/D-Methorphan Hb 5 Ml Cup PO 10 ml Q4H PRN PRN Administration Ceftriaxone Sodium/Dextrose 1 gm in 50 mls @ 100 mls/hr 06/19/25 15:00 06/19/25 15:20 Rocephin IVPB Infused Q24H EMEKA Infusion IV Miscellaneous Supplies 1 each 06/19/25 16:30 Iv Access IV DIRECTED EMEKA Lidocaine HCl 5 ml 06/18/25 21:00 06/19/25 01:33 Lidocaine 2% Viscous 15 Ml Cup MM 5 ml Q6H PRN PRN Administration Lorazepam 0.5 mg 06/18/25 20:12 06/19/25 11:57 Lorazepam 0.5 Mg Tab PO 0.5 mg QID PRN PRN Administration Methocarbamol 1,000 mg 06/18/25 20:00 06/19/25 20:36 Methocarbamol 500 Mg Tab PO 1,000 mg HS EMEKA Administration Methylphenidate HCl 40 mg 06/19/25 08:30 06/20/25 08:09 Methylphenidate 10 Mg Tab PO 40 mg DAILY EMEKA Administration Methylphenidate HCl 10 mg 06/19/25 13:00 06/19/25 12:37 Methylphenidate 10 Mg Tab PO 10 mg DAILY@1300 EMEKA Administration Montelukast Sodium 10 mg 06/19/25 08:30 06/20/25 08:09 Montelukast 10 Mg Tab PO 10 mg DAILY EMEKA Administration Nicotine 21 mg 06/18/25 20:15 06/20/25 08:09 Nicotine 21 Mg/24 Hr Patch TD 21 mg DAILY EMEKA Administration Omeprazole 40 mg 06/19/25 07:30 06/20/25 08:08 Omeprazole 20 Mg Capcr PO 40 mg DAILY@0730 EMEKA Administration Polyethylene Glycol 17 gm 06/18/25 17:35 Polyethylene Glycol 3350 17 Gm Packet PO DAILY PRN PRN Constipation Prednisone 40 mg 06/19/25 08:30 06/20/25 08:08 Prednisone 20 Mg Tab PO 40 mg DAILY EMEKA Administration Pregabalin 300 mg 06/18/25 20:00 06/20/25 08:07 Pregabalin 150 Mg Cap PO 300 mg BID EMEKA Administration Ropinirole HCl 2 mg 06/18/25 20:00 06/19/25 20:36 Ropinirole 1 Mg Tab PO 2 mg HS EMEKA Administration Sodium Chloride 0 ml 06/18/25 13:51 Normal Saline Flush 10 Ml Syr IVP PRN PRN Sodium Chloride 0 ml 06/18/25 20:00 06/19/25 20:35 Normal Saline Flush 10 Ml Syr IVP 10 ml BID EMEKA Administration Sodium Chloride 0 ml 06/18/25 13:51 Normal Saline 10 Ml Vial IJ DIRECTED PRN Sodium Chloride 0 ml 06/18/25 15:21 06/20/25 08:12 Normal Saline Flush 10 Ml Syr IVP 20 ml PRN PRN Administration Sodium Chloride 50 ml 06/18/25 15:30 06/18/25 15:22 Normal Saline - Diluent 50 Ml Vial IJ 50 ml DIRECTED EMEKA Administration Zolpidem Tartrate 5 mg 06/18/25 21:00 06/19/25 23:55 Zolpidem 5 Mg Tab PO Not Given HS [facility] Allergies ketorolac (From Toradol) Allergy (Severe, Verified 01/23/25 15:09) Anaphylaxis ibuprofen (From Motrin) Allergy (Intermediate, Verified 01/23/25 15:09) Itching Exam Narrative Exam Narrative: General: alert, no acute distress Head: normocephalic ENT: no stridor, trachea midline CV: normal rate, regular rhythm Respiratory: no wheezing, no crackles, bilateral rhonchi, no prolonged expiration GI: abd soft, non-tender, non-distended Skin: no rashes Extremities: no edema, Psych: normal affect Results Last Vital Signs Temp 36.2 C L 06/20/25 08:02 Pulse 85 06/20/25 08:02 Resp 20 06/20/25 08:02 BP 114/79 06/20/25 08:02 Pulse Ox 96 06/20/25 08:02 Labs 06/20/25 05:55 06/20/25 05:55 Labs: Laboratory Results - last 24 hr 06/18/25 06/19/25 06/19/25 20:00 05:36 10:10 WBC RBC Hgb Hct MCV MCH MCHC RDW Plt Count MPV Immature Gran % Neutrophils % Lymphocytes % Monocytes % Eosinophils % Basophils % Nucleated RBC % Absolute Neutrophils Absolute Lymphocytes Absolute Monocytes Absolute Eosinophils Absolute Basophils Sodium Potassium Chloride Carbon Dioxide Anion Gap BUN Creatinine Est GFR (CKD-EPI 2020) Glucose Hemoglobin A1c 6.2 H Calcium Magnesium Urine Color Urine Clarity Urine pH Ur Specific [place] Urine Protein Urine Ketones Urine Blood Urine Nitrite Urine Bilirubin Urine Urobilinogen Ur Leukocyte Esterase Urine Glucose Urine Opiates Screen Urine Methadone Screen Ur Barbiturates Screen Ur Tricyclics Screen Ur Amphetamines Screen U Benzodiazepines Scrn Urine Cocaine Screen Ur THC Screen Urine Legionella Ag Negative Add-On Test Request DONE 06/19/25 06/20/25 18:20 05:55 WBC 10.06 RBC 3.57 L Hgb 10.3 L Hct 33.2 L MCV 93 MCH 28.9 MCHC 31.0 L RDW 13.5 Plt Count 467 H MPV 8.9 Immature Gran % 0.8 Neutrophils % 77.6 Lymphocytes % 14.7 Monocytes % 6.3 Eosinophils % 0.3 Basophils % 0.3 Nucleated RBC % 0.0 Absolute Neutrophils 7.81 H Absolute Lymphocytes 1.48 Absolute Monocytes 0.63 Absolute Eosinophils 0.03 Absolute Basophils 0.03 Sodium 142 Potassium 3.8 Chloride 107 Carbon Dioxide 26.2 Anion Gap 8.8 BUN 16 Creatinine 0.6 Est GFR (CKD-EPI 2020) 98.93 Glucose 291 H Hemoglobin A1c Calcium 8.0 L Magnesium 2.2 Urine Color Yellow Urine Clarity Clear Urine pH 7.0 Ur Specific [place] 1.015 Urine Protein Negative Urine Ketones Negative Urine Blood Negative Urine Nitrite Negative Urine Bilirubin Negative Urine Urobilinogen 0.2 Ur Leukocyte Esterase Negative Urine Glucose 500 H Urine Opiates Screen Positive A Urine Methadone Screen Negative Ur Barbiturates Screen Negative Ur Tricyclics Screen Negative Ur Amphetamines Screen Negative U Benzodiazepines Scrn Negative Urine Cocaine Screen Positive A Ur THC Screen Negative Urine Legionella Ag Add-On Test Request Imaging CT scan - chest: report reviewed and image reviewed
[2025-06-20] MEDS: Doxycycline Hyclate 100 MG CAP PO ×2 (09:32→20:42)
--- NOTE | 2025-06-20 09:47 | NUR.NOTE ---
Nursing Note: in pt chart due to APS questions
[2025-06-20] MEDS: Methylphenidate 10 MG TAB PO (12:37)
--- NOTE | 2025-06-20 13:05 | W.PM.PROGNOT ---
Date of Service Date of service: 06/20/25 Time of Service: 13:06 Assessment and Plan Assessment and plan (1) Pneumonia involving right lung: Status: Acute Assessment and plan: Likely community-acquired. Smokes cigarettes, vapes and smokes crack cocaine.Discussed benefits of stopping all, and the risk of not stopping, including . Continue IV ceftriaxone and stop azithromycin. Start Doxycycline (per recommendation of pulmonology). Monitor for clinical improvement (fever curve, WBC 10.06, O2 needs; no O2 requirements today). Encourage incentive spirometry and Acapella. Sputum cx - normal tasneem CT chest: No evidence of pulmonary embolism, aortic dissection, or aneurysm. Imaging shows multifocal pneumonia, most prominent in the right middle and lower lobes, with a tree-in-bud pattern in the right lower lobe suggestive of small airways disease such as bronchiolitis or infection. A more consolidated opacity in the right upper lobe is consistent with the patient?s known lung carcinoma. Transition to PO antibiotics once clinically stable. I walked with the patient down the [place] and she had to stop to rest two times. She was coughing when we returned and quite wheezy. RT called. SPO2 ~91 RA. (2) Crack cocaine use: Status: Acute Assessment and plan: Chronic Patient continues to demonstrate choreoathetoid movements consistent with stimulant-induced dyskinesia, likely secondary to admitted recent cocaine use (3) Homeless: Status: Acute Assessment and plan: Patient reports she is currently homeless and unable to return to the residence previously shared with her boyfriend. She states she is in contact with [facility] for assistance with housing and related resources. Care management team has been notified and is actively involved in coordination of support and placement options. At this time, there is not a safe discharge plan. Patient reports that returning to her house or her boyfriend is not safe. She is exploring alternatives, including potential placement in a long-term and contacting her daughter in [place] for possible temporary housing. Care management is involved and continue to assist with identifying safe and appropriate discharge options. (4) Acute exacerbation of chronic obstructive pulmonary disease (COPD): Status: Acute Assessment and plan: Nebs O2 keep SPO2 >88% (5) Cigarette smoker: Status: Chronic Assessment and plan: Smokes 1/2 ppd per patients report Vapes also Nicotine patch (6) History of lung cancer: Status: Acute Assessment and plan: Patient states she is in remission but has residual pain from radiation. (7) Insomnia: Status: Acute Assessment and plan: Continue home zolpidem (8) Degeneration of cervical intervertebral disc: Status: Acute Assessment and plan: Continue home vicodin (9) Chronic pain syndrome: Status: Chronic Assessment and plan: Continue home vicodin (10) Anxiety: Status: Chronic Assessment and plan: Lorazepam prn Subjective Subjective Patient reports: no new complaints, tolerating liquids well, tolerating a regular diet, shortness of breath (continues to have shortness of breath at rest.) and afebrile; denies diarrhea, nausea or vomiting Interval history since last seen: Awake, alert, sitting on the side of the bed. Conversant, pleasant, coughing frequently. Objective Last Vital Signs Temp 36.1 C L 06/20/25 11:23 Pulse 99 H 06/20/25 11:23 Resp 20 06/20/25 11:23 BP 111/67 06/20/25 11:23 Pulse Ox 95 06/20/25 11:23 Laboratory Results - last 24 hr 06/18/25 06/19/25 06/20/25 20:00 18:20 05:55 WBC 10.06 RBC 3.57 L Hgb 10.3 L Hct 33.2 L MCV 93 MCH 28.9 MCHC 31.0 L RDW 13.5 Plt Count 467 H MPV 8.9 Immature Gran % 0.8 Neutrophils % 77.6 Lymphocytes % 14.7 Monocytes % 6.3 Eosinophils % 0.3 Basophils % 0.3 Nucleated RBC % 0.0 Absolute Neutrophils 7.81 H Absolute Lymphocytes 1.48 Absolute Monocytes 0.63 Absolute Eosinophils 0.03 Absolute Basophils 0.03 Sodium 142 Potassium 3.8 Chloride 107 Carbon Dioxide 26.2 Anion Gap 8.8 BUN 16 Creatinine 0.6 Est GFR (CKD-EPI 2020) 98.93 Glucose 291 H Calcium 8.0 L Magnesium 2.2 Urine Color Yellow Urine Clarity Clear Urine pH 7.0 Ur Specific [place] 1.015 Urine Protein Negative Urine Ketones Negative Urine Blood Negative Urine Nitrite Negative Urine Bilirubin Negative Urine Urobilinogen 0.2 Ur Leukocyte Esterase Negative Urine Glucose 500 H Urine Opiates Screen Positive A Urine Methadone Screen Negative Ur Barbiturates Screen Negative Ur Tricyclics Screen Negative Ur Amphetamines Screen Negative U Benzodiazepines Scrn Negative Urine Cocaine Screen Positive A Ur THC Screen Negative Urine Legionella Ag Negative Time Spent with Patient Time Spent with Patient: 25-34 minutes Time was spent: preparing to see the patient(eg.review tests), ordering medications,tests, procedures, referring, communicating with other health respiratory care specialist, indepentently interpreting results, counseling the patient and care coordination
[2025-06-20] MEDS: cefTRIAXone 1 GM/50 ML BAG IVPB (14:15)
--- NOTE | 2025-06-20 14:38 | PDOC.CMPRO ---
Date of service: 06/20/25 Time of Service: 14:38 Care Management Progress Note Progress Note Text Progress Note Text: CM has visited with with Liset several times today. She does not yet feel ready for discharge. She became quite short of breath while ambulating. Her O2 sat did stay >90%. She had a coughing spell after the walk and was quite wheezy. Provider will keep her another night. There is still some question of where she will discharge to. Liset stated that she has been in contact with [facility] for emergency housing. CM would like to give Liset the application for assistance and housing, and encourage her to call [facility] and [employer]. When CM went to visit her just now, Will, her boyfriend was visiting. The door was closed. CM knocked and entered, stated my name before fully entering the room. Liset allowed CM to enter. Liset was sitting in bed, Robert was reclined in the chair. They were eating cookies and candy and watching TV. did not offer any housing support at that time due to Will being present. CM will try again later this afternoon. If unable to meet, she will be priority tomorrow morning. CM spoke with Yadira, Liset's daughter. Liset was asked if CM could call her, and she said yes. She is on the hipaa as well. Yadira is unable to take her mom in. Liset's current and past behavior does not promote a healthy environment for her. Yadira said that Liset has not been the best mom, although she is loved. Discharge Potential Discharge Needs: PCP F/U Appt Anticipated Barriers to Discharge: SDOH (housing) Patient/Family Education Needs: Review discharge instructions, discuss [facility] Me [facility] Transportation: Other (dependent on disposition) Plan: Liset's discharge plan is a bit uncertain at this time. She will likely be medically cleared by tomorrow. Liset stated that she has been in touch with [facility] to help with emergency housing, but CM is unsure if this true. Liset will need to f/u with her PCP, regardless of her disposition, and continue per her plan of care. CM will continue to follow. Social Determinants of Health Screening Will the Patient Participate in the Screening?: Unable to obtain
[2025-06-20] MEDS: Methocarbamol 500 MG TAB 1000 MG PO (20:41)
[2025-06-20] MEDS: Zolpidem 5 MG TAB PO (20:41)
[2025-06-20] MEDS: rOPINIRole 1 MG TAB 2 MG PO (20:42)
[2025-06-21 03:00] VITALS: BP 127/78; PULSE 84; RESP 17; TEMP 36.7; O2SAT 97
[2025-06-21] MEDS: Benzonatate 200 MG CAP PO (03:01)
[2025-06-21 06:00] VITALS: RESP 20; O2SAT 96
[2025-06-21] MEDS: Albuterol/Ipratropium 3 ML UPD VIAL UPD (06:00)
[2025-06-21 07:16] VITALS: BP 117/70; PULSE 85; RESP 16; TEMP 36.5; O2SAT 95
[2025-06-21] MEDS: predniSONE 20 MG TAB 40 MG PO (07:55)
[2025-06-21] MEDS: Omeprazole 20 MG CAPCR 40 MG PO (07:55)
[2025-06-21] MEDS: Doxycycline Hyclate 100 MG CAP PO (07:55)
[2025-06-21] MEDS: guaiFENesin 600 MG TABCR PO (07:56)
[2025-06-21] MEDS: Montelukast 10 MG TAB PO (07:57)
[2025-06-21] MEDS: DULoxetine 30 MG CAP 120 MG PO (07:57)
[2025-06-21] MEDS: Methylphenidate 10 MG TAB 40 MG PO (07:58)
[2025-06-21] MEDS: Nicotine 21 MG/24 HR PATCH TD (07:59)
[2025-06-21] MEDS: Enoxaparin 40 MG/0.4 ML SYR SC (08:00)
[2025-06-21] MEDS: Normal Saline Flush 10 ML SYR IVP (08:01)
[2025-06-21] MEDS: Pregabalin 150 MG CAP 300 MG PO (08:01)
[2025-06-21] MEDS: Budesonide/Formoterol 160/4.5 6 GM 60 PUFF INH IH (08:06)
[2025-06-21] MEDS: Polyethylene Glycol 3350 17 GM PACKET PO (08:08)
--- NOTE | 2025-06-21 09:27 | DSE_ITS ---
Date of service: 06/21/25 Time of Service: 09:52 DS: Diagnosis Discharge Diagnosis (1) Pneumonia involving right lung: Status: Acute (2) Crack cocaine use: Status: Acute (3) Homeless: Status: Acute (4) Acute exacerbation of chronic obstructive pulmonary disease (COPD): Status: Acute (5) Cigarette smoker: Status: Chronic (6) History of lung cancer: (7) Insomnia: (8) Degeneration of cervical intervertebral disc: (9) Chronic pain syndrome: (10) Anxiety: Discharge Plan Disposition Patient Disposition: Home Condition: Fair Discharge Details Reason For Visit: Right Sided Multilobar Pneumonia Admit Date/Time: 06/18/25 17:35 Admit Provider: Gary Ayers Attending Provider: Gary Ayers Primary Care Provider: Jean Munoz Hospital Course Hospital Course: 64-year-old female with history of COPD, NSCLC (in remission), GERD, depression, and chronic pain presented with several days of worsening shortness of breath and productive cough. She denied fever, chest pain, or hemoptysis. Home nebulizers gave minimal relief. She currently smokes approximately ? pack per day. In the ED, she was tachypneic with increased work of breathing. CXR and CT chest showed multilobar right-sided pneumonia without pulmonary embolism. She received DuoNeb and Solu-Medrol with minimal improvement and was admitted for IV antibiotics and monitoring. SIGNIFICANT FINDINGS: * CXR/CT: Multilobar right-sided pneumonia; no PE. * WBC 11.6. D-dimer elevated (1240). Normal renal and hepatic function. * COVID/Flu/RSV negative. * UDS positive for opiates and cocaine. HOSPITAL COURSE: Patient was started on IV ceftriaxone and azithromycin. Pulmonology recommended changing azithromycin to doxycycline given chronic prior use. Continued IV ceftriaxone and transitioned to oral cefpodoxime and doxycycline for a total 7- day course. Received prednisone 40 mg daily for COPD exacerbation and nebulized bronchodilators. Patient had no oxygen requirement and SpO2 >88%. She improved clinically and was able to ambulate without desaturation. Extensive counseling provided regarding smoking, vape and crack coccaine cessation and adherence to inhalers. Requesting nicotine replacement therapy and PRN HS cough syrup despite not using in the past 24 hours. Pulmonology advised repeat CT chest in 2?3 months and outpatient follow-up in 1?2 weeks. Patient reports she is currently homeless and unable to return to the residence previously shared with her boyfriend. She is in contact with [facility] for assistance with housing and related resources. Care management team is actively involved in coordinating support and placement options. Patient was exploring alternatives, including potential placement in a assisted and contacting her daughter in [place] for possible temporary housing; however, her daughter cannot provide housing. Care management continues to assist with identifying safe and appropriate discharge options. Patient not considering rehab at this time. CONSULTATIONS: Pulmonology ? 06/20/25 Recommendations: * Continue antibiotics (7 days total; transition to PO cefpodoxime + doxycycline). * Prednisone 40 mg daily ? 5 days. * Resume home inhalers. * Repeat CT chest in 2?3 months. * Pulmonary follow-up in 1?2 weeks. * Smoking cessation counseling provided. CONDITION ON DISCHARGE: Improved and stable. Afebrile, on room air, minimal cough, no increased work of breathing. Discharge will be finalized once a safe plan is confirmed. DISCHARGE MEDICATIONS: New/Changed: * Doxycycline 100 mg PO BID ? 5 days * Cefpodoxime 200 mg PO BID ? 5 days * Prednisone 40 mg PO daily ? 5 days * Albuterol inhaler: 2 puffs q4?6h PRN SOB/wheezing * Acetaminophen 650 mg PO Q 6 H PRN * NRT patch 21 mg TP daily * Guaifenesin dextromethorphan 10-100mg /10 ml PO HS PRN * Miralax 17 gram PO Daily PRN Continue Home Medications: * Advair HFA 115/21, 2 puffs BID * Incruse Ellipta daily * Duloxetine 120 mg PO daily * Buspirone 15 mg PO daily * Pregabalin 300 mg PO BID * Hydrocodone-acetaminophen PRN pain * Zolpidem 5 mg PO HS * Ropinirole 2 mg PO HS * Montelukast 10 mg PO daily * Omeprazole 40 mg PO daily * Methocarbamol 1,000 mg PO HS * Ondansetron 4 mg PO q8h PRN nausea * Sumatriptan 100 mg PO PRN migraine DISPOSITION: Discharged home in stable condition. Discussed with Dr. Anders Recommendations for Follow Up Recommended tests to be ordered by follow up provider: Repeat CT chest in 2?3 months Home Meds and New Rx's Prescriptions: New prednisone 20 mg Tablet 40 mg PO DAILY Qty: 10 0RF guaifenesin [Mucus Relief ER] 600 mg Tablet Extended Release 12hr 1,200 mg PO BID Qty: 0 0RF doxycycline hyclate 100 mg Capsule 100 mg PO Q12H Qty: 10 0RF albuterol sulfate [Ventolin HFA] 90 mcg/actuation HFA aerosol inhaler 2 puff inhalation 6XD PRNQty: 8.5 0RF cefpodoxime 200 mg tablet 200 mg PO BID Qty: 10 0RF Rx Instructions: must administer with a meal/food acetaminophen 325 mg Tablet 650 mg PO Q6H PRNQty: 30 0RF nicotine 21 mg/24 hr Patch 24 Hour 21 mg transdermal DAILY Qty: 28 0RF dextromethorphan-guaifenesin 10-100 mg/5 mL Syrup 10 ml PO HS PRNQty: 50 0RF polyethylene glycol 3350 17 gram Powder In Packet 17 g PO DAILY PRN PRN (Reason: Constipation) Qty: 14 0RF Continued hydrocodone-acetaminophen 7.5-325 mg tablet 1 tab PO Q6H PRN (Reason: pain) methocarbamol 500 mg tablet 1,000 mg PO HS Patient Comments: TAKE TWO TABLETS BY MOUTH DAILY AT 9PM AT BEDTIME zolpidem 5 mg tablet 5 mg PO QHS buspirone 15 mg tablet 15 mg PO .COMPLEX Rx Instructions: 15 mg orally QD-TID; ondansetron HCl 4 mg tablet 4 mg PO Q8H PRN (Reason: nausea) sumatriptan succinate 100 mg tablet 100 mg PO ONCE PRN (Reason: migraine headache) (DME) lancets Misc See Rx Instructions .Route Rx Instructions: Check blood glucose 2x daily (DME) OneTouch Ultra Test Strip See Rx Instructions .Route Rx Instructions: Test blood glucose 2x daily methylphenidate HCl 10 mg tablet 10 mg PO DAILY Patient Comments: take at 1300 fluticasone propion-salmeterol [Advair HFA] 115-21 mcg/actuation HFA aerosol inhaler 2 puff inhalation BID Qty: 12 12RF benzonatate 200 mg capsule 200 mg PO TID PRN (Reason: cough) Qty: 90 12RF methylphenidate HCl 20 mg tablet 40 mg PO DAILY montelukast 10 mg tablet 10 mg PO DAILY pregabalin 300 mg capsule 300 mg PO BID Patient Comments: TAKE ONE CAPSULE BY MOUTH TWICE DAILY DAILY MAX 2 CAPSULES ropinirole 2 mg tablet 2 mg PO HS Patient Comments: TAKE ONE TABLET BY MOUTH DAILY AT 9PM AT BEDTIME lidocaine HCl [Lidocaine Viscous] 2 % solution 1 applic mucous membrane .q6 prn Patient Comments: MIX 5 MLS LIDOCAINE WITH 5 MLS MYLANTA OR MAALOX, SWISH AND SWALLOW FOR SWALLOWING PAIN EVERY 6 HOURS NEEDED duloxetine 60 mg capsule,delayed release(DR/EC) 120 mg PO DAILY (DME) OneTouch Ultra Test Strip MISCELLANEOUS Patient Comments: USE TO TEST TWO TIMES A DAY omeprazole 40 mg capsule,delayed release(DR/EC) 40 mg PO DAILY Patient Comments: TAKE ONE CAPSULE BY MOUTH EVERY DAY Discontinued azithromycin 250 mg tablet 250 mg PO DAILY Rx Instructions: 250 mg orally; Discharge Instructions Instructions: Cefpodoxime, Doxycycline, Guaifenesin, Prednisone, Community- Acquired Pneumonia, Adult (DC) Additional Instructions: * Continue inhalers and pulmonary hygiene (incentive spirometry, Acapella). * Complete all antibiotics and prednisone as prescribed. * Avoid smoking, vaping and crack cocaine use; nicotine patch recommended. * Activity as tolerated. * Regular diet. Follow-Up: * Pulmonology: within 1?2 weeks * Primary Care Provider: within 1 week * Repeat CT chest: in 2?3 months Return to ED for: worsening shortness of breath, fever, chest pain, confusion, or inability to maintain oral intake. Referrals: Jean Munoz [Primary Care Provider, Medicine] Referral Note: 1 week post inpatient hospitalization for pneumonia. Liu Ron MD [ [facility] STAFF PHYSICIAN, Pulmonology] Referral Note: 1-2 weeks post hospitalization; Pneumonia, COPD, Lung CA Activity:: Activity as Tolerated Equipment/Supplies:: No Equipment Needed Diet:: As Tolerated Discharge Orders Discharge Orders: Discharge Order (Routine); Ordered 06/21/25 Ordered By: Alea Chapin DS: Summary Time Spent with Patient providing and/or coordinating discharge services: Greater than 30 minutes Status at Discharge Functional status at discharge: independent ambulation Overall status at discharge: patient is progressing back to baseline Mental Status: mental status grossly normal Speech and Movement: speech and movement normal Mood: congruent mood Affect: normal affect Quality:SDOH Health Related Social Needs: Health related social needs food insecurity house/econ circumstance Health related social needs details will meet with SW Exam Narrative Exam Narrative: Constitutional The patient is well groomed without acute distress but appears anxious with restless voluntary hand gestures HENMT: Facial structures with normal appearance Eyes: Well aligned, intact ROM Neuro:alert and oriented X4. No neurological focal deficits Chest:Chest is symmetrical with increased AP diameter Resp: Speaks in short sentences, clear lung bilaterally with diminished right base Cardio: regular rhythm, S1, S2, no murmur GI: Abdomen is not distended, soft and non tender, bowel sounds are present : Negative Costovertebral angle tenderness Psych: RASS 0, congruent mood and normal to anxious affect. Psych Mental Status: mental status grossly normal Speech and Movement: speech and movement normal Mood: congruent mood Affect: normal affect DS: Data Vitals/I&O Vitals and I&O: Vital Signs Temperature 36.5 C 06/21/25 07:16 Temperature Source Temporal Artery Scan 06/21/25 07:16 Pulse 85 06/21/25 07:16 Pulse 85 06/18/25 18:16 Respiratory Rate 16 06/21/25 07:16 Respiratory Effort Short of Breath 06/18/25 17:48 Respiratory Depth Deep 06/18/25 17:48 Respiratory Pattern Normal 06/18/25 17:48 Blood Pressure 117/70 06/21/25 07:16 Blood Pressure Mean 85 06/21/25 07:16 Blood Pressure Position Supine 06/18/25 13:50 Pulse Oximetry 95 06/21/25 07:16 Oxygen Delivery Method Room Air 06/21/25 07:16 Oxygen Flow Rate 0 06/21/25 07:16 Pain Level 7 06/21/25 08:10 Intake & Output 06/20/25 06/20/25 06/21/25 11:59 23:59 11:59 Intake Total 520 / 2160 1640 / 2160 620 / 620 Output Total 850 / 1075 225 / 1075 Balance -330 / 1085 1415 / 1085 620 / 620 Intake: IV 60 / 60 Oral 520 / 2100 1580 / 2100 620 / 620 Output: Urine 850 / 1075 225 / 1075 Other: Urine Color Yellow Yellow Urine Appearance Clear Clear Urine Odor Normal Comment pt voids to toilet. voiding in toilet, patient has removed measuring hat Data Completed and Pending Labs on day of discharge: Preliminary micro results at discharge 06/18/25 23:34 Sputum Sputum Culture - Preliminary Normal Stefania PFSH All Active Problems Homeless (Acute) Crack cocaine use (Acute) Pneumonia involving right lung (Acute) Acute delirium (Acute) Anticholinesterase overdose (Acute) Left lower lobe pneumonia (Acute) Acute exacerbation of chronic obstructive pulmonary disease (COPD) (Acute) Edema of leg (Acute) Postcalcaneal bursitis (Acute) 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 08/18/24. I&D followed by antibiotics Pharyngeal dysphagia (Acute) Hypocalcemia (Acute) Splenic mass (Acute) Burn of lower limb (Acute) Posterior tibial tendon dysfunction (PTTD) of both lower extremities (Acute) Chronic use of opiate for therapeutic purpose (Chronic) Traumatic arthritis of right ankle (Acute) Posterior tibial tendonitis (Acute) Fibromyalgia (Acute) Steroid-induced hyperglycemia (Acute) Hypoxia (Acute) Other disorders of eyelid (Acute) Pyogenic granuloma of eyelid (Acute) Blurry vision, bilateral (Acute) Panlobular emphysema (Acute) Chronic fatigue (Acute) Hesitancy (Acute) Degeneration of lumbar or lumbosacral intervertebral disc (Acute) Complications due to internal orthopedic device, implant, and graft (Acute) Menopausal flushing (Acute) Varicose vein of leg (Acute) Patellar bursitis (Acute) Rosacea (Acute) IBS (irritable bowel syndrome) (Chronic) Lumbar radicular syndrome (Acute) Seasonal allergic rhinitis (Acute) Senile nuclear sclerosis (Acute) Cervical spondylosis (Chronic) Tear film insufficiency (Acute) Blepharitis of both eyes (Acute) Diplopia (Acute) Vitreous syneresis (Acute) Arthritis (Acute) Fatty liver (Acute) Bronchitis (Acute) Brachial neuritis (Acute) Neuralgia and neuritis (Acute) Lumbago (Acute) 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) Chronic knee pain (Acute) Hip pain (Acute) Narcolepsy (Acute) Restless legs syndrome (Acute) Asthma (Chronic) Migraine (Chronic) Impaired glucose tolerance (Acute) Cervicalgia (Acute) Obesity (BMI 30-39.9) (Acute) Chronic back pain (Acute) Major depressive disorder, recurrent (Acute) Cigarette smoker (Chronic) Medical History COPD (chronic obstructive pulmonary disease) GERD (gastroesophageal reflux disease) Depression Chronic low back pain KATJA (obstructive sleep apnea) Primary cancer of right upper lobe of lung Surgical History H/O gastric bypass H/O cystoscopy S/P fine needle aspiration H/O colonoscopy H/O cervical spine surgery History of fundoplication H/O arthroscopy of shoulder H/O vaginal hysterectomy History of salpingectomy Family History Sister No problems noted. Brother No problems noted. Mother No problems noted. Father No problems noted. Brother No problems noted. Social History Smoking/Tobacco Use Status: Current every day Tobacco Type: cigarettes Tobacco: How many years used: 48 Quit status: has quit before Second Hand Exposure: Yes Smoking risk assessment performed?: Yes Alcohol Intake: current Alcohol Intake frequency: holidays/special occasions only Drug use: Occasionally Substance use type: marijuana Adopted: No Caregiver/Support person: Yes Foster care: No Household members: caregiver Housing: apartment Number of Children: 2 number of grandchildren: 1 Communication Needs: None Education Level: high school Do you need help understanding health information?: Rarely current occupation: Retired Pets and animals: No Sexually active: Yes Do you think of yourself as: straight/heterosexual Current gender identity: female What is your relationship status?: living with partner How often do you talk on the phone with friends or family?: three or more times per week How often do you get together with friends or relatives?: three or more times per week How often do you attend catholic or baptist services?: 1-3 times per year Do you belong to any clubs or organized social groups?: no Panel score (0-1 are the most socially isolated patients): 2 What type of physical activity do you participate in: walking Duration: 15-30 minutes/day Frequency: 1-2 times per week Shreya/Church: [employer] Special shreya needs: No Seatbelt use: always Helmet use: Yes Drive intox or ride w/intox auto parts delivery driver: No Do you feel safe at home: Yes Do you feel safe in your relationship?: Yes Time Spent with Patient Time Spent with Patient: 70-84 minutes4 Time was spent: preparing to see the patient(eg.review tests), obtaining and/or reviewing separately otained hiistory, ordering medications,tests, procedures, referring, communicating with other health healthcare consultant, indepentently interpreting results, counseling the patient and care coordination
--- NOTE | 2025-06-21 10:17 | PDOC.CMDIS ---
Date of service: 06/21/25 Time of Service: 10:17 LACE Index Scoring Tool Questions: Length of Stay (in days): 3 Was the patient admitted via the E.D.?: Yes Comorbidities: Chronic Pulmonary Disease and Any Tumor E.D. Visits: 2 Answers: Total Score: 13 Risk of Readmission: High Risk Care Management Discharge Plan Reason for Hospitalization: pneumonia, COPD exacerbation Discharge Plan: Liset is discharged home today with no new home care services. 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 LINDA spoke with Liset this morning. She wants to give her man another try. She has the 24h number for [employer] and also has the housing numbers should she need them. Her [employer] CM was called today and yesterday and VM were left that Liset could really use a check in. Liset will transport home with Will in a private vehicle. Patient/Family Education Needs: Review of discharge instructions, activity, limitations and discuss Ask me 3. Community services were also discussed. SDOH Health Related Social Needs: Health related social needs food insecurity house/econ circumstance Health related social needs details will meet with JOSH
[2025-06-21 14:21] LABS: Streptococcus Pneumoniae Ag, U Negative (Negative)
== END 2025-06-21 12:56 | disposition home or self-care (01) | DRG 194 ==
LOC: ER 17:12 → MS 18:50
PROVIDERS: Nurse Practitioner Family; Admitting Provider Family Medicine; Emergency Provider Emergency Medicine; PCP Family Medicine; Responsible Provider Nurse Practitioner Acute Care; Visit Provider Family Medicine
DX: J18.9 Pneumonia, unspecified organism (principal); C34.11 Malignant neoplasm of upper lobe, right bronchus or lung; F33.9 Major depressive disorder, recurrent, unspecified; J44.0 Chronic obstructive pulmonary disease with (acute) lower respiratory infection; J44.1 Chronic obstructive pulmonary disease with (acute) exacerbation; Z59.02 Unsheltered homelessness; R06.02 Shortness of breath; F17.210 Nicotine dependence, cigarettes, uncomplicated; G47.00 Insomnia, unspecified; M50.30 Other cervical disc degeneration, unspecified cervical region; G89.4 Chronic pain syndrome; F41.9 Anxiety disorder, unspecified; F14.10 Cocaine abuse, uncomplicated; G47.419 Narcolepsy without cataplexy; M51.379 Other intervertebral disc degeneration, lumbosacral region without mention of lumbar back pain or lower extremity pain; K58.9 Irritable bowel syndrome, unspecified; L71.9 Rosacea, unspecified; K76.0 Fatty (change of) liver, not elsewhere classified; M47.812 Spondylosis without myelopathy or radiculopathy, cervical region; G47.33 Obstructive sleep apnea (adult) (pediatric); K21.9 Gastro-esophageal reflux disease without esophagitis; Z98.84 Bariatric surgery status; G24.01 Drug induced subacute dyskinesia; Z59.41 Food insecurity; Z79.891 Long term (current) use of opiate analgesic
CPT/HCPCS: 00123; 36415; 71275; 80048; 80053; 80307; 87449; 87637; 93005; 94640; 96365; 96367; 96375; 99222; 99285; J1650; J3490; 71046; 81003; 83036; 83735; 83880; 84484; 85025; 85379; 87070; 87205; 87899; 93010; 94664; 94667; 94760; 99231; 99232; 99239; J0456; J0696; J2919; J7512; J7613; J7620

== ENCOUNTER → 2025-06-20 11:50 | Outpatient (BNVA) | payer MEDICARE, MEDICAID, SELFPAY | PROVIDERS: Visit Provider Internal Medicine Pulmonary Disease ==

== ENCOUNTER → 2025-07-03 14:11 | Outpatient (BNVA) | payer MEDICARE, MEDICAID, SELFPAY | PROVIDERS: PCP Family Medicine; Referring Provider Family Medicine; Visit Provider Internal Medicine Pulmonary Disease | DX: J44.9 Chronic obstructive pulmonary disease, unspecified (principal); Z85.118 Personal history of other malignant neoplasm of bronchus and lung; R91.8 Other nonspecific abnormal finding of lung field; F17.210 Nicotine dependence, cigarettes, uncomplicated; Z23 Encounter for immunization; Z29.11 Encounter for prophylactic immunotherapy for respiratory syncytial virus (RSV) | CPT/HCPCS: 90471; 90653; 90679; 99214 ==